=== PATIENT | female | born 1965 | race Caucasian/White ===

== ENCOUNTER 2017-06-24 15:59 | Emergency (ER) | payer MEDICAID, SELFPAY ==
[2017-06-24 16:00] VITALS: BP 156/97; PULSE 124; RESP 17; TEMP 36.4; O2SAT 96
--- NOTE | 2017-06-24 16:44 | CT_ITS ---
STUDY: CT ABDOMEN AND PELVIS WITH CONTRAST REASON FOR EXAM: Female, 51 years old. Left-sided abdominal pain for one week. Patient has had a cholecystectomy and hysterectomy. RADIATION DOSAGE (If Supplied By Facility): CTDIvol = ( 20.89 ) mGy, DLP = ( 1086.62 ) mGycm TECHNIQUE: Transaxial images were obtained from the dome of the diaphragm to the symphysis pubis without oral contrast. 100 ml of Isovue 300 contrast was administered. Sagittal and coronal images were reconstructed. Individualized dose optimization techniques were used for this CT. COMPARISON: CT of the abdomen dated February 10, 2017. FINDINGS: The visualized lung bases are unremarkable. The visualized portions of the heart are within normal limits. A tiny lucency within the right lobe of liver measures less than a centimeter in size. This is too small to characterize. The liver otherwise has a normal appearance. There is non-visualization of the gallbladder, which may be secondary to either contraction or a prior cholecystectomy. Normal spleen. Normal pancreas. There is a left adrenal nodule measuring approximately 2.9 cm in greatest dimension. The right adrenal gland has a normal appearance. There are multiple lucencies in both kidneys, too small to characterize. The largest measures up to 10 mm in size. There is no evidence for hydronephrosis, hydroureter or radiopaque ureteral calculus. Normal visualized stomach. Is no evidence for dilated bowel, ascites or pneumoperitoneum. Small bowel has a grossly normal appearance. The descending colon is not distended which gives the appearance of thickened elias. There are scattered colonic diverticula. The appendix is visualized and appears normal. There is patchy atherosclerotic calcification of the abdominal aorta, without a demonstrated aneurysm. Normal inferior vena cava. Normal retroperitoneum. Urinary bladder wall is mildly thickened measuring approximately 6.6 mm. Normal visualized uterus. Normal abdominal wall. There is deformity of the right inferior pubic ramus probably related to old fracture. CT/Abdomen/Pelvis WITH Contrast IMPRESSION: 1. No CT evidence of acute intra-abdominal disease. 2. Small renal cysts and possible hepatic cyst. Electronically Signed: Lindsey Caro MD at 20:28 EST , Service support ,
[2017-06-24 16:56] LABS: Bacteria 0 SEEN /hpf (None Seen); Mucous, Urine 0 SEEN /hpf (<or=2+); White Blood Cells 0 SEEN /hpf (0-5)
[2017-06-24 17:04] LABS: Basophil# 0.03 X10^3/uL; Basophil% 0.3 % (0-1); Eosinophil# 0.18 X10^3/uL; Eosinophils% 1.6 % (0-5); Hemoglobin 15.1 g/dl (12.0-15.0); Lymphocyte % 38.9 % (19-41); Mean Corp Hgb Conc 32.8 g/gl (32-36); Mean Corpuscular Hgb 31.9 pg (27.0-32.0); Mean Corpuscular Volume 97.3 fL (81-99); Mean Platelet Vol. 10.3 fl (6.2-12.0); Monocyte# 0.88 X10^3/uL; Monocyte% 7.6 % (0-10); Neutrophil # 5.96 X10^3/uL (2.7-7.7); Neutrophil % 51.3 % (47-70); Platelet Count 295 K/mm3 (150-450); RBC Distribution Width CV 12.8 % (11.6-14.6); Red Blood Count 4.73 M/mm3 (4.2-5.4); White Blood Count 11.6 K/mm3 (4.4-11.0)
[2017-06-24 17:09] LABS: Color, Urine Yellow (Yellow); Glucose, Dipstick Normal (Normal); Ketone-Dipstick Negative (Negative); Leukocyte Esterase-Dipstick Negative /ul (Negative); Nitrite-Dipstick Negative (Negative); Occult Blood-Urine 50 /ul (Negative); POSITIVE COUNT NO; POSITIVE DIFFERENTIAL NO; POSITIVE MORPHOLOGY NO; Protein-Dipstick Negative (Negative); Specific Gravity, Urine 1.015 (1.002-1.030); Urine Bilirubin Dipstick Negative (Negative); Urine Clarity Clear (Clear); Urine Urobilinogen Normal (Normal)
[2017-06-24 17:46] LABS: Red Blood Cells-Urine 0-5 SEEN /hpf (0-5); Squamous Epithelial Cells - UA 0-5 SEEN /hpf (5-10)
[2017-06-24 19:17] LABS: AST(SGOT) 31 U/L (15-37); Alanine Aminotransfer ALT/SGPT 58 U/L (13-56); Albumin, Serum 3.9 g/dL (3.2-5.0); Alkaline Phosphatase 69 U/L (45-117); Anion Gap 9 (5-15); BUN 9 mg/dL (7-18); BUN/Creat Ratio 10.3 RATIO (10-20); Calcium,Total 8.6 mg/dL (8.5-10.1); Chloride 105 mmol/L (98-107); Creatinine, Serum 0.87 mg/dL (0.55-1.02); EST Glomerular Filtration Rate 73 mL/min (>60); Est Glom Filt Rate - Afr Amer 88 mL/min (>60); Globulin 3.8 g/dL (2.2-4.2); Glucose 137 mg/dL (74-106); Potassium 3.3 mmol/L (3.5-5.1); Protein, Total 7.7 g/dL (6.4-8.2); Sodium Level 141 mmol/L (136-145)
[2017-06-24 20:22] VITALS: BP 122/87; PULSE 93; RESP 15; O2SAT 99
--- NOTE | 2017-06-24 20:50 | ED.DCSUM_ITS ---
- ER Visit Summary Date of Service: 06/24/17 Chief Complaint: Abdominal pain History of Present Illness: The patient is a 51 F who states that she went to her primary care physician 1 week ago. She is having a left lower quadrant abdominal pain. She had negative blood work and negative urine. He ordered a CT but it has been held up because of insurance reasons. She states that she comes the emergency department because she would like to find out what is going on. Her symptoms have not really changed other than maybe being slightly worse. She states that she has had a few small fibroids on her uterus before she was recently on hormonal supplementation for menopause. She denies any abnormal bleeding. Abdominal surgeries include a cholecystectomy and oophorectomy due to tubal . Physical Examination: Afebrile vital signs are stable Gen: Well-nourished well-developed Head: Normocephalic atraumatic Eyes: Perrl EOMI ENT: TMs clear no rhinorrhea moist mucous membranes Neck: Supple no lymphadenopathy no JVD nontender CVS: Regular rate rhythm no murmurs normal S1-S2 Respiratory: No distress clear to auscultation bilaterally chest nontender Abdomen: Soft mild tenderness to palpation in the left lower quadrant without guarding or rebound nondistended normal bowel sounds no masses Back: Nontender Extremity: Nontender no edema Skin: Normal color no rash Neuro: alert orientated ?3 CN II-XII intact normal strength sensation reflexes gait cerebellar Psych: Normal affect normal mood Test Results: White count 11.6. Glucose 137. Liver and urine normal. CT of the pelvis does not demonstrate an obvious cause for the patient's pain. Emergency Department Course and Treatment: She will be referred to her primary care physician for continued evaluation of this pain. Return if worsening. Impression:. Acute abdominal pain This note was generated with [employer] dictation software. It may contain incorrect words, spelling, and punctuation that were not noted in review of the chart prior to signing ED Disposition - Plan for ED Patient: Disposition: Home or Assisted Living Chief Complaint: Abd Pain Instructions: ED Abdominal Pain Unkn Cause Referrals: Freddy Dee MD [Primary Care Provider] - 3-5 Days
[2017-06-24 21:06] VITALS: BP 123/78; PULSE 71; RESP 14; O2SAT 97
--- NOTE | 2017-06-24 21:07 | ED.RN ---
PT GIVEN DISCHARGE INSTRUCTIONS AND VERBALIZES UNDERSTANDING. IV D/C AND COVERED WITH 2X2 GAUZE DRESSING. MINIMAL BLEEDING NOTED. PT AMBULATORY HOME BY SELF.
== END 2017-06-24 21:09 | disposition home or self-care (01) ==
PROVIDERS: Emergency Provider Emergency Medicine; Family Provider Family Medicine; PCP Family Medicine
DX: R10.32 Left lower quadrant pain (principal); R61 Generalized hyperhidrosis; F41.9 Anxiety disorder, unspecified; Z87.59 Personal history of other complications of pregnancy, childbirth and the puerperium; Z90.49 Acquired absence of other specified parts of digestive tract; Z90.721 Acquired absence of ovaries, unilateral; Z79.899 Other long term (current) drug therapy; Z72.0 Tobacco use
CPT/HCPCS: 74177; 80053; 81001; 85025; 99283; Q9967; A4216

== ENCOUNTER → 2017-08-19 11:49 | Outpatient (CLI) | payer MEDICAID, SELFPAY ==
[2017-08-19 13:12] LABS: Estradiol 12.7 pg/mL; Follicle Stimulating Hormone 44.6 mIU/mL
[2017-08-20 11:29] LABS: DHEA Sulfate 32.1 ug/dL (41.2-243.7)
[2017-08-26 17:39] LABS: Free T3 3.1 pg/mL (2.18-3.98); T4 Free Direct 1.08 ng/dL (0.76-1.46); Thyroid Stim Hormone (TSH) 2.57 uIU/mL (0.358-3.74)
== END ==
PROVIDERS: Visit Provider Obstetrics & Gynecology
DX: N95.1 Menopausal and female climacteric states (principal)
CPT/HCPCS: 36415; 82533; 82627; 82670; 83001; 84144; 84403; 84439; 84443; 84481; 82626

== ENCOUNTER → 2017-08-27 12:11 | Outpatient (CLI) | payer MEDICAID, SELFPAY ==
[2017-08-27 13:02] LABS: Hematocrit 45.9 % (37-47); Hemoglobin 15.7 g/dl (12.0-15.0); Mean Corp Hgb Conc 34.2 g/gl (32-36); Mean Corpuscular Hgb 33.3 pg (27.0-32.0); Mean Corpuscular Volume 97.2 fL (81-99); Mean Platelet Vol. 10.6 fl (6.2-12.0); Platelet Count 278 K/mm3 (150-450); RBC Distribution Width CV 12.7 % (11.6-14.6); RBC Distribution Width SD 44.5 fl (35.1-43.9); Red Blood Count 4.72 M/mm3 (4.2-5.4)
[2017-08-27 13:03] LABS: Scan Indicated on CBC? Y/N NO
[2017-08-27 13:18] LABS: Hemoglobin A1c 6.5 % (4.2-6.3)
== END ==
PROVIDERS: Family Provider Family Medicine; PCP Family Medicine; Visit Provider Obstetrics & Gynecology
DX: N95.1 Menopausal and female climacteric states (principal)
CPT/HCPCS: 83036; 85027

== ENCOUNTER 2017-09-19 11:13 | Emergency (ER) | payer MEDICAID, SELFPAY ==
[2017-09-19 11:13] VITALS: BP 155/101; PULSE 122; RESP 20; TEMP 36.4; O2SAT 98; BMI 38.3
--- NOTE | 2017-09-19 12:08 | CT_ITS ---
STUDY: CT MAXILLOFACIAL SINUSES REASON FOR EXAM: Female, 51 years old. Headache, facial pain, pressure behind face x 6 months, worse x 1 week. RADIATION DOSAGE (If Supplied By Facility): CTDIvol = ( 29.38 ) mGy, DLP = ( 510.73 ) mGycm TECHNIQUE: The patient was scanned in a multi detector CT scanner. High resolution axial imaging was performed without the administration of intravenous contrast material. Sagittal and coronal images were reconstructed. Individualized dose optimization techniques were used for this CT. COMPARISON: None. FINDINGS: FRONTAL SINUSES: Normal aeration, without mucosal inflammatory disease. ETHMOIDAL SINUSES: Normal aeration, without mucosal inflammatory disease. MAXILLARY SINUSES: There is minimal mucosal thickening of the left inferior maxillary sinus. Normal right maxillary sinus. SPHENOIDAL SINUSES: Normal aeration, without mucosal inflammatory disease. There is patency of the bilateral maxillary infundibuli with normal uncinate processes, ethmoid bullae, and hiatus semilunaris. 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 Normal bilateral inferior turbinates. There is a right sided nasal septal deviation with a right sided nasal septal spur. There is patency of the bilateral nasal airways. The visualized osseous structures are normal. The visualized bilateral orbital contents are normal. CT/Sinus/Facial Bone IMPRESSION: There is minimal mucosal thickening of the left maxillary sinus. 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 There is a right sided nasal septal deviation with a right sided nasal septal spur. Electronically Signed: Viji Morgan MD at 12:50 EDT , Service support ,
--- NOTE | 2017-09-19 12:08 | CT_ITS ---
STUDY: CT BRAIN WITHOUT CONTRAST REASON FOR EXAM: Female, 51 years old. Headache, facial pain, pressure behind face x 6 months, worse x 1 week. RADIATION DOSAGE (If Supplied By Facility): CTDIvol = ( 44.99 ) mGy, DLP = ( 745.49 ) mGycm TECHNIQUE: Transaxial CT imaging of the brain was performed without administration of intravenous contrast material. Individualized dose optimization techniques were used for this CT. COMPARISON: None. FINDINGS: Normal soft tissue structures. Normal calvarium. Normal size ventricles and extra-axial spaces for the patient's age. Normal white matter tracts of the cerebral hemispheres. Normal basal ganglia and thalami. Normal brainstem. Normal cerebellum. There is no intracranial hemorrhage. There are no findings of an acute ischemic infarction. Normal visualized paranasal sinuses. CT/Brain/Head without Contrast IMPRESSION: Normal unenhanced CT scan of the brain. Electronically Signed: Viji Morgan MD at 12:52 EDT , Service support ,
--- NOTE | 2017-09-19 12:10 | ED.VIS.GEN ---
History of Present Illness Chief Complaint: General Illness Informant: Patient Onset: - - 1 yr or more Context: Gradual Onset Timing: Continuous Narrative: Patient presenting with symptoms that have been present for over a year but worse in the past month. No different today. She states that she did not know what else to do but come to the ER for right facial pain and pressure that also feels like it is behind her nose and in the roof of her mouth, occasionally radiates to her right ear, and vertigo. She gets intermittent aching in her ears and ringing. She denies being congested or having any rhinorrhea or cough. No fevers. No injuries. She has been seen in the ER several times for this as well as ENT and endocrinology. She has had lots of blood work including hormone levels, but has had no CT or MRI although they have attempted to, but either insurance did not cover it or paperwork was filed incorrectly. She also states that she feels like there is a liquid pouring down the right frontal head on the inside, and when she leans forward, it drips down the front, mid forehead. Her vertigo is significantly worse when she bends over and then stands back up. She denies any focal peripheral neurologic symptoms except for BUE muscle weakness that has been there chronically that she associates w/ pain in her upper arms from a cervical pinched nerve. - Past Medical History (1) Paroxysmal SVT (supraventricular tachycardia) Status: Chronic (2) Hypertension Status: Chronic (3) Tobacco abuse Status: Chronic Past Medical History - Allergies and Home Meds Allergies/Adverse Reactions: Allergies codeine Allergy (Verified 09/19/17 11:16) Rash hydrocodone bitartrate [From Vicodin] Allergy (Verified 09/19/17 11:16) Rash methimazole [From Tapazole] Allergy (Verified 09/19/17 11:16) Shortness of breath famotidine [From Pepcid] Adverse Reaction (Unknown, Verified 09/19/17 11:16) Unknown estradiol [From CombiPatch] Adverse Reaction (Verified 09/19/17 11:16) myalgias, lip/mouth burn, SOB, nausea, dizziness methylprednisolone sodium succinate [From Solu-Medrol] Adverse Reaction (Verified 09/19/17 11:16) Other norethindrone [From CombiPatch] Adverse Reaction (Verified 09/19/17 11:16) myalgias, lip/mouth burn, SOB, nausea, dizziness oxycodone HCl [From Percocet] Adverse Reaction (Verified 09/19/17 11:16) Nausea/Vom/Diarrhea Home Medications: Home Medications Medication Instructions Recorded Levothyroxine [Synthroid] 125 mcg PO SUMOWEFRSA 12/05/15 Levothyroxine [Synthroid] 137 mcg PO TUTH 02/09/17 Primary Care Physician: Freddy Dee MD [Primary Care Provider] - Surgical History: cholecystectomy, - - Ectopic , tubal ligation Smoking Status: Current every day smoker Drugs: None Review of Systems All systems negative except as indicated Eyes: Reports: Visual changes - right - line through vision intermittently. Denies: Diplopia ENT: Reports: Right ear pain - intermittently, - - tinnitus bilat intermittently Musculoskeletal: Reports: Neck pain - chronic from pinched nerve that she associates with chronic bilat upper ext muscle weakness. Denies: Back pain Neurological: Reports: Headache, Weakness - upper ext's chronic not new/worse, - - vertigo / spinning Psych: Reports: Anxiety Physical Exam Vital Signs/Narrative: Vital Signs Temp Pulse Resp BP Pulse Ox 09/19/17 11:13 97.6 F L 122 H 20 H 155/101 H 98 Inital Vital Signs reviewed: Yes - not as tachycardic on my exam (low 100s estimated) General: Well nourished, Well developed Head: Normocephalic, Atraumatic Eyes: Perrl, EOMI ENT: Moist mucous membranes, No rhinorrhea, TM's clear, Nasal congestion, - - no facial tenderness. grossly nml appearing. no nasal turbinate edema or nasal d/c. no dental disease/tenderness.. Negative for: Sinus tenderness Neck: Supple, Nontender, No lymphadenopathy, No JVD Cardiovascular: Regular rate, Regular rhythm, No murmurs, Tachycardia Respiratory: No distress, CTA bilaterally, Chest nontender Abdomen: Soft, Nontender, Nondistended, Normal bowel sounds Back: Nontender, Normal Inspection Extremities: Nontender, No edema Skin: Normal color, No rash Neurological: Alert, Oriented x3, Cranial nerves II-XII grossly intact, Normal Strength, Normal Sensation Psychological: - - mildly anxious Diagnostic/Tx/Re-eval Impressions Brain CT 05/27/18 12:08 IMPRESSION: Normal unenhanced CT scan of the brain. Electronically Signed: Viji Morgan MD at 12:52 EDT , Service support , Facial/Sinus 09/19/17 12:08 IMPRESSION: There is minimal mucosal thickening of the left maxillary sinus. 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 There is a right sided nasal septal deviation with a right sided nasal septal spur. Electronically Signed: Viji Morgan MD at 12:50 EDT , Service support , 09/19/17 12:08 Brain/Head without Contrast [CT] Stat CT Sinus [Sinus/Facial Bone] [CT] Stat - Medical Decision Making She was offered several medications for her symptoms but declined them all, just wanted the CT initially. This was performed, brain and sinuses given her symptoms, the brain is unremarkable and the sinus CT shows a yadi bullosa as well as associated nasal septal deviation with a nasal spur all on the right side. Unknown if these are causing her symptoms or not, but I think routine ENT follow-up would be reasonable to see if surgery would be indicated for this patient or not. No antibiotics indicated at this time. Unknown if these problems could be associated with the vertigo, but my suspicion is that is a different issue. I offered her meclizine and/or something for pain here again, but she declines and states that she can get it [id number]. I will get her imaging on a disc so that she can follow-up with ENT of her choice. ED Disposition - Plan for ED Patient: Disposition: Home or Assisted Living Chief Complaint: General Illness Diagnosis: Right sided facial pain, Yadi bullosa, Peripheral vertigo Instructions: ED Vertigo Unspecified Referrals: José Antonio Doss MD [STAFF PHYSICIAN] - (call for appt)
--- NOTE | 2017-09-19 12:17 | ED.DCSUM_ITS ---
History of Present Illness Chief Complaint: General Illness Informant: Patient Onset: - - 1 yr or more Context: Gradual Onset Timing: Continuous Narrative: Patient presenting with symptoms that have been present for over a year but worse in the past month. No different today. She states that she did not know what else to do but come to the ER for right facial pain and pressure that also feels like it is behind her nose and in the roof of her mouth, occasionally radiates to her right ear, and vertigo. She gets intermittent aching in her ears and ringing. She denies being congested or having any rhinorrhea or cough. No fevers. No injuries. She has been seen in the ER several times for this as well as ENT and endocrinology. She has had lots of blood work including hormone levels, but has had no CT or MRI although they have attempted to, but either insurance did not cover it or paperwork was filed incorrectly. She also states that she feels like there is a liquid pouring down the right frontal head on the inside, and when she leans forward, it drips down the front , mid forehead. Her vertigo is significantly worse when she bends over and then stands back up. She denies any focal peripheral neurologic symptoms except for BUE muscle weakness that has been there chronically that she associates w/ pain in her upper arms from a cervical pinched nerve. - Past Medical History (1) Paroxysmal SVT (supraventricular tachycardia) Status: Chronic (2) Hypertension Status: Chronic (3) Tobacco abuse Status: Chronic Past Medical History - Allergies and Home Meds Allergies/Adverse Reactions: Allergies codeine Allergy (Verified 09/19/17 11:16) Rash hydrocodone bitartrate [From Vicodin] Allergy (Verified 09/19/17 11:16) Rash methimazole [From Tapazole] Allergy (Verified 09/19/17 11:16) Shortness of breath famotidine [From Pepcid] Adverse Reaction (Unknown, Verified 09/19/17 11:16) Unknown estradiol [From CombiPatch] Adverse Reaction (Verified 09/19/17 11:16) myalgias, lip/mouth burn, SOB, nausea, dizziness methylprednisolone sodium succinate [From Solu-Medrol] Adverse Reaction ( Verified 09/19/17 11:16) Other norethindrone [From CombiPatch] Adverse Reaction (Verified 09/19/17 11:16) myalgias, lip/mouth burn, SOB, nausea, dizziness oxycodone HCl [From Percocet] Adverse Reaction (Verified 09/19/17 11:16) Nausea/Vom/Diarrhea Home Medications: Home Medications Medication Instructions Recorded Levothyroxine [Synthroid] 125 mcg PO SUMOWEFRSA 12/05/15 Levothyroxine [Synthroid] 137 mcg PO TUTH 02/09/17 Primary Care Physician: Freddy Dee MD [Primary Care Provider] - Surgical History: cholecystectomy, - - Ectopic , tubal ligation Smoking Status: Current every day smoker Drugs: None Review of Systems All systems negative except as indicated Eyes: Reports: Visual changes - right - line through vision intermittently. Denies: Diplopia ENT: Reports: Right ear pain - intermittently, - - tinnitus bilat intermittently Musculoskeletal: Reports: Neck pain - chronic from pinched nerve that she associates with chronic bilat upper ext muscle weakness. Denies: Back pain Neurological: Reports: Headache, Weakness - upper ext's chronic not new/worse, - - vertigo / spinning Psych: Reports: Anxiety Physical Exam Vital Signs/Narrative: Vital Signs Temp Pulse Resp BP Pulse Ox 09/19/17 11:13 97.6 F L 122 H 20 H 155/101 H 98 Inital Vital Signs reviewed: Yes - not as tachycardic on my exam (low 100s estimated) General: Well nourished, Well developed Head: Normocephalic, Atraumatic Eyes: Perrl, EOMI ENT: Moist mucous membranes, No rhinorrhea, TM's clear, Nasal congestion, - - no facial tenderness. grossly nml appearing. no nasal turbinate edema or nasal d /c. no dental disease/tenderness.. Negative for: Sinus tenderness Neck: Supple, Nontender, No lymphadenopathy, No JVD Cardiovascular: Regular rate, Regular rhythm, No murmurs, Tachycardia Respiratory: No distress, CTA bilaterally, Chest nontender Abdomen: Soft, Nontender, Nondistended, Normal bowel sounds Back: Nontender, Normal Inspection Extremities: Nontender, No edema Skin: Normal color, No rash Neurological: Alert, Oriented x3, Cranial nerves II-XII grossly intact, Normal Strength, Normal Sensation Psychological: - - mildly anxious Diagnostic/Tx/Re-eval Impressions Brain CT 05/27/18 12:08 IMPRESSION: Normal unenhanced CT scan of the brain. Electronically Signed: Viji Morgan MD at 12:52 EDT , Service support , Facial/Sinus 09/19/17 12:08 IMPRESSION: There is minimal mucosal thickening of the left maxillary sinus. 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 There is a right sided nasal septal deviation with a right sided nasal septal spur. Electronically Signed: Viji Morgan MD at 12:50 EDT , Service support , 09/19/17 12:08 Brain/Head without Contrast [CT] Stat CT Sinus [Sinus/Facial Bone] [CT] Stat - Medical Decision Making She was offered several medications for her symptoms but declined them all, just wanted the CT initially. This was performed, brain and sinuses given her symptoms, the brain is unremarkable and the sinus CT shows a yadi bullosa as well as associated nasal septal deviation with a nasal spur all on the right side. Unknown if these are causing her symptoms or not, but I think routine ENT follow-up would be reasonable to see if surgery would be indicated for this patient or not. No antibiotics indicated at this time. Unknown if these problems could be associated with the vertigo, but my suspicion is that is a different issue. I offered her meclizine and/or something for pain here again, but she declines and states that she can get it [id number]. I will get her imaging on a disc so that she can follow-up with ENT of her choice. ED Disposition - Plan for ED Patient: Disposition: Home or Assisted Living Chief Complaint: General Illness Diagnosis: Right sided facial pain, Yadi bullosa, Peripheral vertigo Instructions: ED Vertigo Unspecified Referrals: José Antonio Doss MD [STAFF PHYSICIAN] - (call for appt)
[2017-09-19 13:18] VITALS: PULSE 80; RESP 22; O2SAT 97
[2017-09-19 13:23] VITALS: BP 131/83
[2017-09-19 14:43] VITALS: BP 192/92
== END 2017-09-19 14:43 | disposition home or self-care (01) ==
PROVIDERS: Emergency Provider Emergency Medicine; Family Provider Family Medicine; PCP Family Medicine
DX: R51 Headache (principal); J34.89 Other specified disorders of nose and nasal sinuses; H81.393 Other peripheral vertigo, bilateral; H93.13 Tinnitus, bilateral; M54.2 Cervicalgia; R29.898 Other symptoms and signs involving the musculoskeletal system; J34.2 Deviated nasal septum; Z86.79 Personal history of other diseases of the circulatory system; Z90.49 Acquired absence of other specified parts of digestive tract; Z98.51 Tubal ligation status; Z79.899 Other long term (current) drug therapy; F17.200 Nicotine dependence, unspecified, uncomplicated
CPT/HCPCS: 70450; 70486; 99282

== ENCOUNTER → 2017-10-18 07:22 | Outpatient (CLI) | payer MEDICAID, SELFPAY ==
--- NOTE | 2017-10-23 10:30 | EEG ---
- Electroencephalogram Date of Service: 10/18/17 History EEG is being done in this 51 yr F to rule out seizures EEG Description: This is an 18 channel EEG with 10-20 lead placement system. Bipolar montages, Referential and Circumferential montages were reviewed. Photic stimulation and Hyperventilation were performed. The posterior dominant background rhythm is 10 HZ synchronous, symmetric, reacting to eye opening and closing. Photo stimulation elicited normal driving response but no abnormal photoparoxysmal response, Hyperventilation did not elicit any abnormal photoparoxysmal response. Sleep was identified. Persistent EKG artefact seen during the record in the referential montages. There was no epileptiform discharges or electrographic seizures noted during this recording. EEG Interpretation This is a normal awake and asleep EEG. There is no epileptiform discharges or electrographic seizures noted during the record.
== END ==
PROVIDERS: Family Provider Family Medicine; PCP Family Medicine; Visit Provider Psychiatry & Neurology Neurology
DX: R42 Dizziness and giddiness (principal); R41.9 Unspecified symptoms and signs involving cognitive functions and awareness
CPT/HCPCS: 95819

== ENCOUNTER 2018-01-29 13:06 | Emergency (ER) | payer MEDICAID, SELFPAY ==
[2018-01-29 13:07] VITALS: BP 148/105; PULSE 121; RESP 17; TEMP 36.7; O2SAT 96; BMI 36.1
--- NOTE | 2018-01-29 13:23 | EKG12_ITS ---
Test Reason : DYSRHYTHMIA Blood Pressure : / mmHG Vent. Rate : 102 BPM Atrial Rate : 102 BPM P-R Int : 134 ms QRS Dur : 084 ms QT Int : 362 ms P-R-T Axes : 043 060 031 degrees QTc Int : 471 ms Sinus tachycardia Nonspecific ST abnormality Abnormal ECG Confirmed by ARYA HARRIS, JUAN ([id number]), editor book BERNA DEL TORO ([id number]) on 01/31/2018 3:04:57 PM Referred By: HERNESTO Confirmed By:JUAN KOENIG MD
--- NOTE | 2018-01-29 13:23 | RAD_ITS ---
STUDY: X-RAY CHEST REASON FOR EXAM: Female, 52 years old. Dizziness TECHNIQUE: Single frontal view COMPARISON: February 10, 2017 FINDINGS: The lungs are clear and expanded. There is no demonstrated pleural abnormality. Normal size heart. Normal mediastinum and ashley. Normal visualized pulmonary arteries. Normal visualized aortic arch and descending thoracic aorta. Normal visualized thoracic spine. Normal visualized ribs, clavicles, and shoulders. There is no demonstrated abnormality of the visualized soft tissue structures of the upper abdomen. RAD/Chest 1 View (Portable) IMPRESSION: Normal x-ray examination of the chest. Electronically Signed: Milton Estrada DO at 14:08 EDT Tel [phone], Service support ,
--- NOTE | 2018-01-29 13:35 | CT_ITS ---
STUDY: CT ABDOMEN AND PELVIS WITHOUT CONTRAST REASON FOR EXAM: Female, 52 years old. Abdominal pain RADIATION DOSAGE (If Supplied By Facility): CTDIvol = ( 14.97 ) mGy, DLP = ( 714.32 ) mGycm TECHNIQUE: Transaxial images were obtained from the dome of the diaphragm to the symphysis pubis without oral contrast, and without intravenous contrast. Sagittal and coronal images were reconstructed. Individualized dose optimization techniques were used for this CT. COMPARISON: June 24, 2017 FINDINGS: The visualized lung bases are unremarkable. The visualized portions of the heart are within normal limits. Normal liver. Nonvisualization of the gallbladder. No significant dilatation of the extrahepatic biliary system. Normal spleen. Normal pancreas. Normal bilateral adrenal glands. Normal right kidney. Normal left kidney. Normal visualized stomach. Normal small intestine. Normal colon. The appendix is visualized and appears normal. Calcified abdominal aorta. Normal inferior vena cava. Normal retroperitoneum. Normal urinary bladder. Normal uterus. Small fatty umbilical hernias. Normal osseous structures. CT/Abdomen/Pelvis without Cont IMPRESSION: Small fatty umbilical hernias. Electronically Signed: Milton Estrada DO at 14:53 EDT Tel [phone], Service support ,
--- NOTE | 2018-01-29 13:36 | ED.VISSUMM ---
- ER Visit Summary Date of Service: 01/29/18 Chief Complaint: [] Rapid heart rate numbness sensation all over sense of dizziness History of Present Illness: The patient is a 52 F [] patient has had these symptoms for over 3 years she believes they may be related to removal of 1 of her ovaries. She basically reports that she has spells where she feels tingling all over a sense of dizziness which is really lightheadedness and feels that her heart is racing. She has had an extensive prior outpatient evaluation including evaluation by neurology cardiology endocrinology rheumatology. 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 She has had no fever no cough no chest pain no abdominal pain other than to report intermittent lower abdominal cramps that she has had before her bowel bladder habits have been normal she is eating drink without difficulty no fever no cough no new meds no exposures she is here with her family, she additionally she is been told that some of the symptoms may be related to anxiety by her outpatient providers Also showed me her blood pressure readings at home one time the blood pressure was 130/80 with a heart rate of 103 and then shortly thereafter may be when she stood up it was 110/80 with a heart rate of 110 Physical Examination: [] General, no distress resting comfortably her vital signs are generally unremarkable her heart rate is 110 sinus rhythm she is in no distress speaking comfortably normal pace she is quite anxious over why she continues to have tachycardic spells and feels numb all over HEENT is generally unremarkable, cranial nerves are all normal her speech is easy The neck is supple no adenopathy Cardiovascular, regular rate and rhythm at 110 Lungs, clear bilateral Abdomen, soft nontender Extremities, no clubbing cyanosis or edema Neurologic, awake alert answering questions appropriately moving all 4 extremities she has full range of motion of all 4 extremities she has a normal neurologic exam to sensation movement cranial nerve mental functioning, no psychomotor agitation Test Results: [] Emergency Department Course and Treatment: [] Extensive prior evaluation as above she does have a heart rate here of 110 she seems quite anxious her EKG shows a sinus rhythm of 102 no acute injury pattern at this time screening labs will be obtained CT abdomen The patient's screening labs and abdominal CT and EKG are all unremarkable, I explained all the above to her of explained that given her prior extensive evaluation in the ED evaluation the exact cause of her symptoms remain unclear she will follow with her family doctors and other outpatient providers for further management options and return for change in symptoms Treatment Plan: [] Disposition: [] Home stable Impression: [] Palpitations with history of same, whole body numbness etiology unclear This note was generated with [employer] dictation software. It may contain incorrect words, spelling, and punctuation that were not noted in review of the chart prior to signing ED Disposition - Plan for ED Patient: Chief Complaint: Dizziness Referrals: Freddy Dee MD [Primary Care Provider] -
[2018-01-29 13:57] LABS: Absolute Lymphocyte Count 2.69 X10^3/ul (0.83-4.51); Absolute Neutrophil Count 6.6 X10^3/uL (2.0-7.7); Basophil# 0.04 X10^3/uL; Basophil% 0.4 % (0-1); Eosinophil# 0.09 X10^3/uL; Eosinophils% 0.9 % (0-5); Hematocrit 47.1 % (37-47); Lymphocyte # 2.69 X10^3/ul (4.0); Lymphocyte % 26.5 % (19-41); Mean Corpuscular Hgb 32.5 pg (27.0-32.0); Mean Corpuscular Volume 95.5 fL (81-99); Mean Platelet Vol. 10.5 fl (6.2-12.0); Monocyte# 0.68 X10^3/uL; Monocyte% 6.7 % (0-10); Neutrophil # 6.61 X10^3/uL (2.7-7.7); Platelet Count 276 K/mm3 (150-450); RBC Distribution Width CV 12.5 % (11.6-14.6); RBC Distribution Width SD 42.9 fl (35.1-43.9); Red Blood Count 4.93 M/mm3 (4.2-5.4); White Blood Count 10.2 K/mm3 (4.4-11.0)
[2018-01-29 13:58] LABS: POSITIVE COUNT NO; POSITIVE DIFFERENTIAL NO; POSITIVE MORPHOLOGY NO
[2018-01-29 14:06] LABS: Bacteria 0 SEEN /hpf (None Seen); Mucous, Urine 0 SEEN /hpf (<or=2+); Red Blood Cells-Urine 0 SEEN /hpf (0-5); White Blood Cells 0 SEEN /hpf (0-5)
[2018-01-29 14:07] LABS: Color, Urine Yellow (Yellow); Glucose, Dipstick Normal (Normal); Ketone-Dipstick Negative (Negative); Leukocyte Esterase-Dipstick Negative /ul (Negative); Nitrite-Dipstick Negative (Negative); Occult Blood-Urine 10 /ul (Negative); Protein-Dipstick Negative (Negative); Urine Bilirubin Dipstick Negative (Negative); Urine Clarity Clear (Clear); Urine Urobilinogen Normal (Normal); Urine pH 6.5 (5.0 - 8.0)
[2018-01-29 14:15] LABS: Squamous Epithelial Cells - UA 0-5 SEEN /hpf (5-10)
[2018-01-29 14:22] LABS: AST(SGOT) 18 U/L (15-37); Alanine Aminotransfer ALT/SGPT 36 U/L (13-56); Albumin, Serum 3.8 g/dL (3.2-5.0); Alkaline Phosphatase 83 U/L (45-117); Anion Gap 7 (5-15); BUN 8 mg/dL (7-18); BUN/Creat Ratio 8.8 RATIO (10-20); Bilirubin, Direct 0.14 mg/dL (0.00-0.30); Chloride 106 mmol/L (98-107); Creatinine, Serum 0.91 mg/dL (0.55-1.02); EST Glomerular Filtration Rate 69 mL/min (>60); Est Glom Filt Rate - Afr Amer 83 mL/min (>60); Estimated Creatinine Clearance 54.57 ml/min; Globulin 4.1 g/dL (2.2-4.2); Glucose 108 mg/dL (74-106); Lipase 141 U/L (73-393); Potassium 3.9 mmol/L (3.5-5.1); Protein, Total 7.9 g/dL (6.4-8.2); Sodium Level 138 mmol/L (136-145); T4 Free Direct 1.19 ng/dL (0.76-1.46); Thyroid Stim Hormone (TSH) 2.95 uIU/mL (0.358-3.74)
[2018-01-29 14:27] LABS: BNP,B-Type NATRIURETIC PEPTIDE 13.3 pg/mL (0-100)
[2018-01-29 14:43] VITALS: BP 103/68; PULSE 84; RESP 20; O2SAT 94
--- NOTE | 2018-01-29 15:03 | ED.DEP ---
ED Disposition - Plan for ED Patient: Chief Complaint: Dizziness Instructions: ED Dizziness [facility]O, ED Palpitations Referrals: Freddy Dee MD [Primary Care Provider] -
== END 2018-01-29 15:17 | disposition home or self-care (01) ==
LOC: ED 13:38
PROVIDERS: Emergency Provider Emergency Medicine; Family Provider Family Medicine; PCP Family Medicine
DX: R00.2 Palpitations (principal); R20.0 Anesthesia of skin; R10.30 Lower abdominal pain, unspecified; R42 Dizziness and giddiness
CPT/HCPCS: 71045; 74176; 80048; 80076; 81001; 83690; 83880; 84439; 84443; 84484; 85025; 93005; 99284; A4216

== ENCOUNTER → 2018-02-04 10:28 | Outpatient (CLI) | payer MEDICAID, SELFPAY | PROVIDERS: Family Provider Family Medicine; PCP Family Medicine; Referring Provider Psychiatry & Neurology Neurology; Visit Provider Psychiatry & Neurology Neurology | DX: R53.83 Other fatigue (principal) | CPT/HCPCS: 36415 ==

== ENCOUNTER 2018-02-08 17:37 | Emergency (ER) | payer MEDICAID, SELFPAY ==
[2018-02-08 17:38] VITALS: BP 181/102; PULSE 124; RESP 17; TEMP 36.8; O2SAT 96; BMI 36.0
--- NOTE | 2018-02-08 18:34 | EKG12_ITS ---
Test Reason : CP Blood Pressure : / mmHG Vent. Rate : 113 BPM Atrial Rate : 113 BPM P-R Int : 134 ms QRS Dur : 088 ms QT Int : 332 ms P-R-T Axes : 058 068 031 degrees QTc Int : 455 ms Sinus tachycardia Nonspecific ST abnormality Abnormal ECG Confirmed by ARYA HARRIS, JUAN ([id number]), visual effects editor BERNA DEL TORO ([id number]) on 02/10/2018 10:00:36 AM Referred By: Janice Carmona Confirmed By:JUAN KOENIG MD
--- NOTE | 2018-02-08 18:35 | ED.VISSUMM ---
- ER Visit Summary Date of Service: 02/08/18 Chief Complaint: Palpitations History of Present Illness: The patient is a 52 F palpitations intermittent since yesterday evening. Woke up with worsening symptoms. Saw PCP office sent to cardiology Dr. Canseco. She is heart rate in the 119. He was placed on betaxolol 10 mg tabs to take half a tab daily as needed. She has been having these symptoms on and off for 3 years after left oophrectomy. Seen Dr. Canseco in the past. Unclear the cause however is been sinus. She has had asthma-like symptoms with other beta-blockers in the past. She did not take any this medication yet. History of hypothyroid on Synthroid. Tobacco history. States symptoms with the onset with lower abdominal cramping since she had her oophorectomy. With her symptoms would have nausea and vomiting. Resolved after symptoms resolved. Currently mild nausea. Chronic dry cough. His PCP ordered a recent 24-hour urine which she turned in yesterday. Symptoms currently resolved on my evaluation. Physical Examination: General: Alert and oriented ?3, no acute distress HEENT: Normocephalic, atraumatic. Moist mucosa membranes Neck: supple, nontender. Cardiovascular: Regular rate and rhythm, no murmurs Respiratory: Normal breath sounds, symmetric, no distress Abdomen: Soft, nontender, nondistended Extremities: Nontender, no edema, pulses intact ?4 Neuro: no focal neurological deficits. Test Results: EKG sinus rate of 113, no ST or T wave changes. White count 15.9. Potassium 3.2. Magnesium 2.0. Troponin negative. Emergency Department Course and Treatment: Patient resolved symptoms on my evaluation. History of similar in the past. She did not take her medication prescribed today. Have a heart rate now in the 90s. I did check labs, potassium 3.2 orally replaced. Magnesium normal. Troponin obtained due to her consistent symptoms throughout any heart strain which was negative. Her white count was 15.9. She has no urine symptoms. Order for chest x-ray for her cough is dry. However she declined this stating likely stress-induced and has had elevated in the past. Discuss her symptoms that have been intermittent past 3 years. She will monitor she will follow-up with her croze machine operator. Signs and symptoms discussed return. Treatment Plan: [] Disposition: Discharge Impression: 1. Transient sinus tachycardia 2 palpitations 3 hypokalemia This note was generated with [employer] dictation software. It may contain incorrect words, spelling, and punctuation that were not noted in review of the chart prior to signing ED Disposition - Plan for ED Patient: Disposition: Home or Assisted Living Chief Complaint: Palpitations Diagnosis: Sinus tachycardia, Palpitations, Hypokalemia Instructions: ED Palpitations, ED Tachycardia Pat PSVT Referrals: Freddy Dee MD [Primary Care Provider] - Blair Canseco MD [STAFF PHYSICIAN] - 5-7 Days
[2018-02-08 18:47] LABS: Absolute Lymphocyte Count 4.08 X10^3/ul (0.83-4.51); Absolute Neutrophil Count 10.3 X10^3/uL (2.0-7.7); Basophil# 0.04 X10^3/uL; Basophil% 0.3 % (0-1); Eosinophil# 0.09 X10^3/uL; Eosinophils% 0.6 % (0-5); Hematocrit 46.3 % (37-47); Hemoglobin 15.8 g/dl (12.0-15.0); Lymphocyte # 4.08 X10^3/ul (4.0); Lymphocyte % 25.7 % (19-41); Mean Corp Hgb Conc 34.1 g/gl (32-36); Mean Corpuscular Hgb 32.8 pg (27.0-32.0); Mean Corpuscular Volume 96.1 fL (81-99); Mean Platelet Vol. 10.6 fl (6.2-12.0); Monocyte% 8.2 % (0-10); Neutrophil # 10.31 X10^3/uL (2.7-7.7); Neutrophil % 64.8 % (47-70); POSITIVE COUNT NO; POSITIVE DIFFERENTIAL NO; POSITIVE MORPHOLOGY NO; Platelet Count 279 K/mm3 (150-450); RBC Distribution Width CV 12.5 % (11.6-14.6); RBC Distribution Width SD 43.1 fl (35.1-43.9); Red Blood Count 4.82 M/mm3 (4.2-5.4); White Blood Count 15.9 K/mm3 (4.4-11.0)
[2018-02-08 18:58] LABS: Anion Gap 9 (5-15); BUN 6 mg/dL (7-18); BUN/Creat Ratio 6.2 RATIO (10-20); Calcium,Total 9.2 mg/dL (8.5-10.1); Chloride 104 mmol/L (98-107); Creatinine, Serum 0.97 mg/dL (0.55-1.02); EST Glomerular Filtration Rate 64 mL/min (>60); Est Glom Filt Rate - Afr Amer 78 mL/min (>60); Estimated Creatinine Clearance 51.19 ml/min; Glucose 128 mg/dL (74-106); Potassium 3.2 mmol/L (3.5-5.1); Sodium Level 139 mmol/L (136-145)
[2018-02-08] MEDS: Acetaminophen 500 MG Tablet 1000 MG PO (19:14)
--- NOTE | 2018-02-08 19:47 | ED.RN ---
PATIENT DOES NOT WANT THE XRAY AND WANTS TO GO HOME PER DR. GREENWOOD.
[2018-02-08 19:56] VITALS: RESP 18
== END 2018-02-08 19:56 | disposition home or self-care (01) ==
PROVIDERS: Emergency Provider Emergency Medicine; Family Provider Family Medicine; PCP Family Medicine
DX: R00.0 Tachycardia, unspecified (principal); R00.2 Palpitations; E87.6 Hypokalemia; E03.9 Hypothyroidism, unspecified; R35.0 Frequency of micturition; Z90.721 Acquired absence of ovaries, unilateral; Z79.899 Other long term (current) drug therapy; Z72.0 Tobacco use
CPT/HCPCS: 80048; 83735; 84484; 85025; 93005; 99284; J7040; J2405

== ENCOUNTER → 2018-02-15 08:11 | Outpatient (CLI) | payer MEDICAID, SELFPAY ==
--- NOTE | 2018-02-15 08:12 | ECHOD_ITS ---
Reason For Study: CHEST PAIN Procedure This was a 2D Doppler, Color Flow transthoracic echocardiogram. The study was technically difficult. Exam performed in department. Left Ventricle Normal LV size. Left ventricular systolic function is normal. The estimated ejection fraction is 65 %. No evidence for diastolic dysfunction. No regional wall motion abnormalities noted. Right Ventricle Normal RV size. Normal systolic function. Atria Normal left atrium. Normal right atrium. No doppler evidence for ASD. Mitral Valve There is no mitral annular calcification. Equivocal mitral valve prolapse. Trivial mitral valve insufficiency. Tricuspid Valve Normal tricuspid valve. Mild tricuspid valve insufficiency. Right ventricular systolic pressure estimated to be 28 mmHg. Aortic Valve Trisinus/trileaflet aortic valve. Normal aortic valve. Pulmonic Valve The pulmonic valve is not well visualized. Trivial pulmonic valve insufficiency. Great Vessels Normal sized aortic root. Pericardium/Pleural No pericardial effusion. MMode/2D Measurements & Calculations LVIDd: 4.2 cm IVSd: 0.92 cm Ao root diam: 3.2 cm LVIDs: 2.9 cm LVPWd: 0.88 cm LA dimension: 3.0 cm RVDd: 3.1 cm FS: 31.3 % LAV(MOD-bp): 44.5 ml LVAd ap4: 23.2 cm2 SV(MOD-sp4): 43.3 ml LAV(MOD-bp) Indexed: 24.1 ml/m2 EDV(MOD-sp4): 62.6 ml LAV(MOD-sp2): 39.3 ml EDV(sp4-el): 63.9 ml LAV(MOD-sp4): 39.7 ml LVAs ap4: 11.8 cm2 ESV(MOD-sp4): 19.4 ml ESV(sp4-el): 19.9 ml EF(MOD-sp4): 69.1 % EF(sp4-el): 68.8 % SV(sp4-el): 44.0 ml LA A4 area: 16.0 cm2 RA A4 area: 14.7 cm2 Time Measurements MV dec time: 0.25 sec Doppler Measurements & Calculations MV E max jameson: 90.2 cm/sec Lat Peak E' Jameson: 9.9 cm/sec Med Peak E' Jameson: 13.6 cm/sec MV A max jameson: 89.6 cm/sec E/E' lat: 9.1 E/E' med: 6.6 MV E/A: 1.0 Ao V2 max: 144.0 cm/sec LV V1 max: 133.6 cm/sec PA V2 max: 104.6 cm/sec Ao max P.3 mmHg LV V1 max P.1 mmHg TR max jameson: 247.3 cm/sec TR max P.5 mmHg Interpretation Summary The study was technically difficult. Left ventricular systolic function is normal. The estimated ejection fraction is 65 %. Equivocal mitral valve prolapse. Trivial mitral valve insufficiency. Mild tricuspid valve insufficiency. Trivial pulmonic valve insufficiency. Right ventricular systolic pressure estimated to be 28 mmHg. No evidence for diastolic dysfunction. Ordering Physician: Ayan Koehler/Blair Canseco Referring Physician: HUGO NAVA Performed By: Yamel Sykes RDCS
== END ==
PROVIDERS: Family Provider Family Medicine; PCP Family Medicine; Referring Provider Nurse Practitioner Family; Visit Provider Nurse Practitioner Family
DX: R07.9 Chest pain, unspecified (principal); R06.09 Other forms of dyspnea; I47.1 Supraventricular tachycardia; Z72.0 Tobacco use; I10 Essential (primary) hypertension; R00.0 Tachycardia, unspecified
CPT/HCPCS: 93306

== ENCOUNTER 2018-02-23 09:48 | Emergency (ER) | payer MEDICAID, SELFPAY ==
[2018-02-23 09:49] VITALS: BP 156/93; PULSE 104; RESP 13; TEMP 36.6; O2SAT 98; BMI 35.9
--- NOTE | 2018-02-23 09:55 | EKG12_ITS ---
Test Reason : CHEST PAIN Blood Pressure : / mmHG Vent. Rate : 104 BPM Atrial Rate : 104 BPM P-R Int : 138 ms QRS Dur : 088 ms QT Int : 372 ms P-R-T Axes : 050 067 026 degrees QTc Int : 489 ms Sinus tachycardia Nonspecific ST abnormality Abnormal ECG Confirmed by ARYA HARRIS, JUAN ([id number]), state editor BERNA DEL TORO ([id number]) on 03/02/2018 2:30:01 PM Referred By: PAT Confirmed By:JUAN KOENIG MD
[2018-02-23 10:30] LABS: Absolute Lymphocyte Count 4.29 X10^3/ul (0.83-4.51); Absolute Neutrophil Count 6.3 X10^3/uL (2.0-7.7); Basophil# 0.05 X10^3/uL; Basophil% 0.4 % (0-1); Eosinophil# 0.19 X10^3/uL; Eosinophils% 1.6 % (0-5); Hematocrit 46.9 % (37-47); Hemoglobin 16.1 g/dl (12.0-15.0); Lymphocyte # 4.29 X10^3/ul (4.0); Lymphocyte % 36.1 % (19-41); Mean Corp Hgb Conc 34.3 g/gl (32-36); Mean Corpuscular Hgb 32.9 pg (27.0-32.0); Mean Corpuscular Volume 95.9 fL (81-99); Mean Platelet Vol. 10.4 fl (6.2-12.0); Monocyte# 1.02 X10^3/uL; Monocyte% 8.6 % (0-10); Neutrophil # 6.29 X10^3/uL (2.7-7.7); Neutrophil % 52.9 % (47-70); POSITIVE COUNT NO; POSITIVE DIFFERENTIAL NO; POSITIVE MORPHOLOGY NO; Platelet Count 301 K/mm3 (150-450); RBC Distribution Width CV 12.8 % (11.6-14.6); RBC Distribution Width SD 44.3 fl (35.1-43.9); Red Blood Count 4.89 M/mm3 (4.2-5.4); White Blood Count 11.9 K/mm3 (4.4-11.0)
[2018-02-23 10:37] LABS: Erythrocyte Sedimentation Rate 23 mm/hr (0-30)
[2018-02-23 11:43] LABS: ALB/GLOB Ratio 0.9 RATIO (0.9-2.4); AST(SGOT) 18 U/L (15-37); Alanine Aminotransfer ALT/SGPT 35 U/L (13-56); Albumin, Serum 3.9 g/dL (3.2-5.0); Alkaline Phosphatase 82 U/L (45-117); Anion Gap 6 (5-15); BUN 15 mg/dL (7-18); BUN/Creat Ratio 16.3 RATIO (10-20); CRP < 2.90 mg/L (0.0-3.0); Calcium,Total 8.9 mg/dL (8.5-10.1); Chloride 105 mmol/L (98-107); Creatinine, Serum 0.92 mg/dL (0.55-1.02); EST Glomerular Filtration Rate 68 mL/min (>60); Est Glom Filt Rate - Afr Amer 82 mL/min (>60); Estimated Creatinine Clearance 53.98 ml/min; Globulin 4.3 g/dL (2.2-4.2); Glucose 118 mg/dL (74-106); Potassium 3.4 mmol/L (3.5-5.1); Protein, Total 8.2 g/dL (6.4-8.2); Sodium Level 136 mmol/L (136-145)
[2018-02-23 11:47] VITALS: BP 142/67; PULSE 71; RESP 15; O2SAT 98
--- NOTE | 2018-02-23 12:46 | ED.VISSUMM ---
- ER Visit Summary Date of Service: 02/23/18 Chief Complaint: Multiple symptoms that are intermittent for the past 5-6 years History of Present Illness: The patient is a 52 F who presents with complaint of dizziness, pounding and palpitations of her heart, dizziness, lower cramping abdominal pain, which she describes as contraction when she received Pitocin, bilateral blurred vision and not feeling right. She has been seen by her primary care physician, multiple cardiologists, chili powder mixer, preschool director, animal nutritionist and senior manager creative services with no known etiology for her symptoms. She states she has had CAT scans EGD and colonoscopy that reportedly are negative. The only abnormality is a slightly elevated white count and decrease in potassium. She has no other symptoms or complaints. Please read written note for complete detail Physical Examination: Vital signs noted and blood pressure is elevated 146/93. When patient stated she was experienced these symptoms her heart rate was a sinus mechanism with a rate of 87. When she complained of being flushed there was no discoloration of her skin nor was or any diaphoresis. Head is atraumatic normocephalic. Pupils are equal round reactive. Extraocular muscles are intact. TMs are pearly white with landmarks noted. Nares patent with no drainage. Posterior pharynx without erythema or exudate. Uvula is midline. There is no dysphonia or dysphasia. Trachea is midline. There is no stridor with auscultation of the neck. Heart is regular without murmur, gallop or rub. S1 and S2 are normal. Lungs are clear to auscultation with good movement of air bilaterally. Abdomen soft nontender bowel sounds present normal. Patient is alert and oriented ?3. Motor is 5 over 5. Sensory is intact. DTRs are symmetric with no clonus or Babinski sign. Cranial 2 through 12 are intact. Cerebellar testing is normal. During the history and physical there was minimal eye contact. Daughter interjected and stated her expectation is for me to determine the cause. Test Results: CBC reveals slight elevation white count 11.9 thousand with normal differential. Potassium is slightly diminished at 3.4. Hepatic is unremarkable. ESR was unremarkable. Emergency Department Course and Treatment: Patient and family were informed that her history and physical does not indicate any significant emergent abnormality. Will do screening labs and specifically CBC electrolytes because of history that these have been abnormal in the past. ESR was obtained because of reported elevated LEONIDAS on one occasion. Treatment Plan: Follow-up with her PCP and discuss options that may not be organic in etiology Disposition: Discharged to home Impression: Multiple somatic symptoms and complaints of unknown etiology This note was generated with [employer] dictation software. It may contain incorrect words, spelling, and punctuation that were not noted in review of the chart prior to signing ED Disposition - Plan for ED Patient: Disposition: Home or Assisted Living Chief Complaint: Palpitations Instructions: ED Palpitations, ED Dizziness [facility]O Referrals: Freddy Dee MD [Primary Care Provider] - 3-5 Days
--- NOTE | 2018-02-23 12:51 | ED.DCSUM_ITS ---
- ER Visit Summary Date of Service: 02/23/18 Chief Complaint: Multiple symptoms that are intermittent for the past 5-6 years History of Present Illness: The patient is a 52 F who presents with complaint of dizziness, pounding and palpitations of her heart, dizziness, lower cramping abdominal pain, which she describes as contraction when she received Pitocin, bilateral blurred vision and not feeling right. She has been seen by her primary care physician, multiple cardiologists, laboratory animal care veterinarian, pulmo nologist, deputy brand inspector and lock expert with no known etiology for her symptoms. She states she has had CAT scans EGD and colonoscopy that reportedly are negative. The only abnormality is a slightly elevated white count and decrease in potassium. She has no other symptoms or complaints. Please read written note for complete detail Physical Examination: Vital signs noted and blood pressure is elevated 146/93. When patient stated she was experienced these symptoms her heart rate was a sinus mechanism with a rate of 87. When she complained of being flushed there was no discoloration of her skin nor was or any diaphoresis. Head is atraumatic normocephalic. Pupils are equal round reactive. Extraocular muscles are intact. TMs are pearly white with landmarks noted. Nares patent with no drainage. Posterior pharynx without erythema or exudate. Uvula is midline. There is no dysphonia or dysphasia. Trachea is midline. There is no stridor with auscultation of the neck. Heart is regular without murmur, gallop or rub. S1 and S2 are normal. Lungs are clear to auscultation with good movement of air bilaterally. Abdomen soft nontender bowel sounds present normal. Patient is alert and oriented ?3. Motor is 5 over 5. Sensory is intact. DTRs are symmetric with no clonus or Babinski sign. Cranial 2 through 12 are intact. Cerebellar testing is normal. During the history and physical there was minimal eye contact. Daughter interjected and stated her expectation is for me to determine the cause. Test Results: CBC reveals slight elevation white count 11.9 thousand with normal differential. Potassium is slightly diminished at 3.4. Hepatic is unremarkable. ESR was unremarkable. Emergency Department Course and Treatment: Patient and family were informed that her history and physical does not indicate any significant emergent abnormality. Will do screening labs and specifically CBC electrolytes because of history that these have been abnormal in the past. ESR was obtained because of reported elevated LEONIDAS on one occasion. Treatment Plan: Follow-up with her PCP and discuss options that may not be organic in etiology Disposition: Discharged to home Impression: Multiple somatic symptoms and complaints of unknown etiology This note was generated with [employer] dictation software. It may contain incorrect words, spelling, and punctuation that were not noted in review of the chart prior to signing ED Disposition - Plan for ED Patient: Disposition: Home or Assisted Living Chief Complaint: Palpitations Instructions: ED Palpitations, ED Dizziness UKO Referrals: Freddy Dee MD [Primary Care Provider] - 3-5 Days
[2018-02-23 13:16] VITALS: PULSE 89; RESP 14; O2SAT 98
== END 2018-02-23 13:17 | disposition home or self-care (01) ==
PROVIDERS: Emergency Provider Emergency Medicine; Family Provider Family Medicine; PCP Family Medicine
DX: R42 Dizziness and giddiness (principal); R00.2 Palpitations; R10.30 Lower abdominal pain, unspecified; E66.9 Obesity, unspecified
CPT/HCPCS: 80053; 85025; 85652; 86140; 93005; 99283; A4216

== ENCOUNTER 2018-05-01 02:18 | Emergency (ER) | payer MEDICAID, SELFPAY ==
[2018-05-01 02:20] VITALS: BP 152/95; PULSE 103; RESP 18; TEMP 37.1; O2SAT 97; BMI 37.4
--- NOTE | 2018-05-01 03:05 | ED.VIS.GEN ---
History of Present Illness Chief Complaint: Fatigue Informant: Patient Onset: Days - 3 Context: Gradual Onset Timing: Continuous, Waxes and wanes Quality: cramping/muscle spasms Location: all over, mostly arms and legs, but also chest Current Severity: Moderate Maximum Severity: Moderate Worsened by: nothing in particular Relieved by: nothing. taken no medications. Associated Symptoms: intermittent facial flushing, feeling hot; constipated. heart beats hard. Narrative: No feeling of palpitations or racing heartbeat, she is just feeling the beats more prominently when she is feeling the facial flushing. She gets muscle spasms in her chest at the same time she gets them in her arms and legs, she denies having chest pain. No trouble breathing. Had a cold 2 weeks ago but nothing since. In the last week she denies any [id number] medications or changes in her other medications. Past Medical History - Allergies and Home Meds Allergies/Adverse Reactions: Allergies codeine Allergy (Verified 05/01/18 02:19) Rash hydrocodone bitartrate [From Vicodin] Allergy (Verified 05/01/18 02:19) Rash methimazole [From Tapazole] Allergy (Verified 05/01/18 02:19) Shortness of breath famotidine [From Pepcid] Adverse Reaction (Unknown, Verified 05/01/18 02:19) Unknown estradiol [From CombiPatch] Adverse Reaction (Verified 05/01/18 02:19) myalgias, lip/mouth burn, SOB, nausea, dizziness methylprednisolone sodium succinate [From Solu-Medrol] Adverse Reaction (Verified 05/01/18 02:19) Other norethindrone [From CombiPatch] Adverse Reaction (Verified 05/01/18 02:19) myalgias, lip/mouth burn, SOB, nausea, dizziness oxycodone HCl [From Percocet] Adverse Reaction (Verified 05/01/18 02:19) Nausea/Vom/Diarrhea Primary Care Physician: Freddy Dee MD [Primary Care Provider] - Surgical History: cholecystectomy, - - Ectopic , tubal ligation Smoking Status: Current every day smoker Review of Systems General: Reports: Malaise. Denies: Chills, Fever, Sweats Eyes: Denies: Visual changes - bilaterally, Diplopia ENT: Reports: - - facial flushing intermittently. Denies: Bilateral ear pain, Rhinorrhea, Sore throat Cardiovascular: Denies: Chest pain, Palpitations, Heart racing Respiratory: Denies: Dyspnea, Cough, Dyspnea on exertion, Orthopnea Gastrointestinal: Reports: Abdominal pain - Suprapubic, Constipation - x 3d. Denies: Nausea, Vomiting, Diarrhea, Melena, Hematochezia Genitourinary: Denies: Dysuria, Hematuria, Frequency Musculoskeletal: Reports: Myalgias, Extremity Pain - see hpi. Denies: Neck pain, Back pain, Swelling Skin: Denies: Rash, Abscess, Wounds Neurological: Denies: Headache, Weakness, Numbness Psych: Reports: Anxiety - I'm out of alprazolam. Denies: Depression, Suicidal thoughts, Suicidal ideations Endocrine: Reports: Heat intolerance. Denies: Cold intolerance Hematologic: Denies: Easy bruising, Easy bleeding Allergy: Denies: Swelling of the mouth, Swelling of the tongue Physical Exam Vital Signs/Narrative: Vital Signs Temp Pulse Resp BP Pulse Ox 05/01/18 02:20 98.7 F 103 H 18 152/95 H 97 Inital Vital Signs reviewed: Yes General: Well nourished, Well developed Head: Normocephalic, Atraumatic Eyes: Perrl, EOMI ENT: Moist mucous membranes, No rhinorrhea Neck: Supple, Nontender, No lymphadenopathy, No JVD Cardiovascular: Regular rate, Regular rhythm, No murmurs, Normal S1, Normal S2. Negative for: Tachycardia Respiratory: No distress, CTA bilaterally, Chest nontender Abdomen: Soft, Nondistended, Normal bowel sounds, Tender - Mild, suprapubic only. Negative for: Guarding, Rebound tenderness Back: Nontender, Normal Inspection Extremities: Nontender, No edema Skin: Normal color, No rash Neurological: Alert, Oriented x3, Cranial nerves II-XII grossly intact, Normal Strength, Normal Sensation, Normal Gait Psychological: Normal affect Diagnostic/Tx/Re-eval Laboratory Results 05/01/18 05/01/18 05/01/18 02:42 03:15 03:15 WBC 11.3 H RBC 4.50 Hgb 15.0 Hct 43.4 MCV 96.4 MCH 33.3 H MCHC 34.6 RDW 12.7 RDW Differential 44.0 H Plt Count 260 MPV 10.0 Immature Gran % (Auto) 0.400 Neut % (Auto) 52.1 Lymph % (Auto) 35.5 [place] % (Auto) 9.4 Eos % (Auto) 2.2 Baso % (Auto) 0.4 Absolute Neuts (auto) 5.9 Absolute Lymphs (auto) 4.02 Total Counted Not Reportable Sodium 145 Potassium 3.4 L Chloride 107 Carbon Dioxide 28.0 Anion Gap 10 BUN 11 Creatinine 0.86 Estim Creat Clear Calc 57.74 Est GFR (MDRD) Af Amer 89 Est GFR (MDRD) Non-Af 73 BUN/Creatinine Ratio 12.8 Glucose 132 H Calcium 9.0 Urine Color Straw Urine Clarity Clear Urine pH 6.5 Ur Specific [place] 1.005 Urine Protein Negative Urine Glucose (UA) Normal Urine Ketones Negative Urine Occult Blood 10 H Urine Nitrite Negative Urine Bilirubin Negative Urine Urobilinogen Normal Ur Leukocyte Esterase Negative Urine RBC 0-5 SEEN Urine WBC 0 SEEN Ur Squamous Epith Cells 0-5 SEEN Urine Bacteria 0 SEEN Urine Mucus 0 SEEN - Medical Decision Making Lab testing shows mild hypokalemia, which may be causing her symptoms. We will give her a dose of potassium chloride here as well as prescription for several days more, her urinalysis shows no signs of infection. If her symptoms persist she is advised to follow-up with her doctor. We discussed the possibility of postmenopausal hot flashes being involved here. ED Disposition - Plan for ED Patient: Disposition: Home or Assisted Living Chief Complaint: Fatigue Diagnosis: Facial flushing, Muscle spasms of both lower extremities, Hypokalemia Instructions: ED Potassium Deficiency Prescriptions: Potassium Chloride [K-Dur] 20 meq PO BID #8 tablet Referrals: Freddy Dee MD [Primary Care Provider] - 1 Week if not improving
[2018-05-01 03:16] LABS: Bacteria 0 SEEN /hpf (None Seen); Mucous, Urine 0 SEEN /hpf (<or=2+); White Blood Cells 0 SEEN /hpf (0-5)
[2018-05-01 03:17] LABS: Color, Urine Straw (Yellow); Glucose, Dipstick Normal (Normal); Ketone-Dipstick Negative (Negative); Leukocyte Esterase-Dipstick Negative /ul (Negative); Nitrite-Dipstick Negative (Negative); Occult Blood-Urine 10 /ul (Negative); Protein-Dipstick Negative (Negative); Specific Gravity, Urine 1.005 (1.002-1.030); Urine Bilirubin Dipstick Negative (Negative); Urine Clarity Clear (Clear); Urine Urobilinogen Normal (Normal); Urine pH 6.5 (5.0 - 8.0)
[2018-05-01 03:25] LABS: Absolute Lymphocyte Count 4.02 X10^3/ul (0.83-4.51); Absolute Neutrophil Count 5.9 X10^3/uL (2.0-7.7); Basophil# 0.04 X10^3/uL; Basophil% 0.4 % (0-1); Eosinophil# 0.25 X10^3/uL; Eosinophils% 2.2 % (0-5); Hematocrit 43.4 % (37-47); Lymphocyte # 4.02 X10^3/ul (4.0); Lymphocyte % 35.5 % (19-41); Mean Corp Hgb Conc 34.6 g/gl (32-36); Mean Corpuscular Hgb 33.3 pg (27.0-32.0); Mean Corpuscular Volume 96.4 fL (81-99); Monocyte# 1.06 X10^3/uL; Monocyte% 9.4 % (0-10); Neutrophil % 52.1 % (47-70); POSITIVE COUNT NO; POSITIVE DIFFERENTIAL NO; POSITIVE MORPHOLOGY NO; Platelet Count 260 K/mm3 (150-450); RBC Distribution Width CV 12.7 % (11.6-14.6); White Blood Count 11.3 K/mm3 (4.4-11.0)
[2018-05-01 03:26] LABS: Red Blood Cells-Urine 0-5 SEEN /hpf (0-5); Squamous Epithelial Cells - UA 0-5 SEEN /hpf (5-10)
[2018-05-01 03:38] LABS: Anion Gap 10 (5-15); BUN 11 mg/dL (7-18); BUN/Creat Ratio 12.8 RATIO (10-20); Chloride 107 mmol/L (98-107); Creatinine, Serum 0.86 mg/dL (0.55-1.02); EST Glomerular Filtration Rate 73 mL/min (>60); Est Glom Filt Rate - Afr Amer 89 mL/min (>60); Estimated Creatinine Clearance 57.74 ml/min; Glucose 132 mg/dL (74-106); Potassium 3.4 mmol/L (3.5-5.1); Sodium Level 145 mmol/L (136-145)
[2018-05-01 04:10] VITALS: RESP 18
== END 2018-05-01 04:10 | disposition home or self-care (01) ==
PROVIDERS: Emergency Provider Emergency Medicine; Family Provider Family Medicine; PCP Family Medicine
DX: R23.2 Flushing (principal); M62.838 Other muscle spasm; E87.6 Hypokalemia; K59.00 Constipation, unspecified; F41.9 Anxiety disorder, unspecified; Z79.899 Other long term (current) drug therapy; F17.200 Nicotine dependence, unspecified, uncomplicated
CPT/HCPCS: 80048; 81001; 85025; 99282; A4216

== ENCOUNTER 2018-07-23 03:24 | Emergency (ER) | payer MEDICAID, SELFPAY ==
[2018-07-23 03:25] VITALS: BP 151/94; PULSE 124; RESP 16; TEMP 36.7; O2SAT 97; BMI 38.5
[2018-07-23 03:28] VITALS: PULSE 121; RESP 13; O2SAT 98
--- NOTE | 2018-07-23 03:55 | EKG12_ITS ---
Test Reason : Blood Pressure : / mmHG Vent. Rate : 111 BPM Atrial Rate : 111 BPM P-R Int : 132 ms QRS Dur : 084 ms QT Int : 340 ms P-R-T Axes : 049 077 046 degrees QTc Int : 462 ms Sinus tachycardia Nonspecific ST abnormality Abnormal ECG Confirmed by YEN HARRIS, WILBERT ([id number]), scientific publications editor DAVIDSON HENDRICKS ([id number]) on 07/25/2018 1:57:39 PM Referred By: CHANDLER Confirmed By:WILBERT BARLOW MD
--- NOTE | 2018-07-23 03:55 | RAD_ITS ---
STUDY: X-RAY CHEST REASON FOR EXAM: Female, 52 years old. Shortness of breath TECHNIQUE: Frontal and lateral views of the chest. COMPARISON: January 29, 2018. FINDINGS: Right basilar atelectasis. No focal consolidation.. There is no demonstrated pleural abnormality. Normal size heart. Normal mediastinum and ashley. Normal visualized pulmonary arteries. Normal visualized aortic arch and descending thoracic aorta. There are diffuse degenerative changes of the visualized thoracic spine. Normal visualized ribs, clavicles, and shoulders. There is no demonstrated abnormality of the visualized soft tissue structures of the upper abdomen. RAD/Chest PA and Lateral IMPRESSION: Right basilar atelectasis. No focal consolidation. Electronically Signed: Shakir Butler, at 5:28 EDT Tel , Service support ,
[2018-07-23] MEDS: Mag Hydrox/Al Hydrox/Simeth 30 ML UDC PO (04:07)
[2018-07-23 04:19] LABS: Anion Gap 9 (5-15); BUN 14 mg/dL (7-18); BUN/Creat Ratio 14.1 RATIO (10-20); Calcium,Total 8.7 mg/dL (8.5-10.1); Chloride 105 mmol/L (98-107); Creatinine, Serum 0.99 mg/dL (0.55-1.02); EST Glomerular Filtration Rate 62 mL/min (>60); Est Glom Filt Rate - Afr Amer 76 mL/min (>60); Estimated Creatinine Clearance 50.16 ml/min; Glucose 229 mg/dL (74-106); Potassium 3.4 mmol/L (3.5-5.1); Sodium Level 139 mmol/L (136-145)
[2018-07-23 05:05] LABS: Absolute Lymphocyte Count 4.75 X10^3/ul (0.83-4.51); Absolute Neutrophil Count 6.7 X10^3/uL (2.0-7.7); Basophil# 0.05 X10^3/uL; Basophil% 0.4 % (0-1); Eosinophil# 0.36 X10^3/uL; Eosinophils% 2.8 % (0-5); Hematocrit 45.8 % (37-47); Hemoglobin 15.7 g/dl (12.0-15.0); Lymphocyte # 4.75 X10^3/ul (4.0); Lymphocyte % 36.7 % (19-41); Mean Corp Hgb Conc 34.3 g/gl (32-36); Mean Corpuscular Hgb 32.9 pg (27.0-32.0); Mean Platelet Vol. 10.4 fl (6.2-12.0); Monocyte# 1.03 X10^3/uL; Neutrophil # 6.71 X10^3/uL (2.7-7.7); Neutrophil % 51.8 % (47-70); Platelet Count 310 K/mm3 (150-450); RBC Distribution Width SD 44.7 fl (35.1-43.9); Red Blood Count 4.77 M/mm3 (4.2-5.4); White Blood Count 12.9 K/mm3 (4.4-11.0)
[2018-07-23 05:09] LABS: POSITIVE COUNT NO; POSITIVE DIFFERENTIAL NO; POSITIVE MORPHOLOGY NO
[2018-07-23 05:24] VITALS: BP 125/88; PULSE 93; RESP 13; O2SAT 93
--- NOTE | 2018-07-23 05:41 | ED.DCSUM_ITS ---
- ER Visit Summary Date of Service: 07/23/18 Chief Complaint: Palpitations History of Present Illness: The patient is a 52 F who woke this morning less than 1 hour before presentation with sweats and palpitations. She also felt a little short of breath. She reports nausea. No vomiting. No diarrhea. No chest pain. No fever. She also complains of reflux. She has a history of severe reflux which is difficult to control. She complains of burning only in the back of her throat. No burning in the chest. No chest pain. They had discussed surgery with her but she did not want to have this done. She does have a prior history of palpitations and has undergone previous workup with this including seeing cardiology for palpitations and sinus tachycardia. Physical Examination: Initial heart rate 121 vitals otherwise normal Moist mucous membranes Heart regular rate and rhythm Lungs are clear Abdomen soft nontender Alert Test Results: EKG shows sinus rhythm at a rate of 111 there is some subtle diffuse ST depression although this is unchanged from prior EKG. Chest x-ray shows atelectasis no consolidation. Labs are notable for white blood cell count 12.9, glucose 229, potassium 3.4. Troponin negative. Emergency Department Course and Treatment: Patient notes that her palpitations have largely begun to improve and her sweats are resolved. She is still complaining of reflux. She was given Mylanta. At the time of my exam her heart rate had already improved to less than 100. On reevaluation she is sleeping in a chair and her heart rate is 90. She was advised to follow-up with her primary care physician. She understands to return for new or worsening symptoms. She was discharged. Treatment Plan: [] Disposition: [] Impression: [] This note was generated with [employer] dictation software. It may contain incorrect words, spelling, and punctuation that were not noted in review of the chart prior to signing ED Disposition - Plan for ED Patient: Referrals: Freddy Dee MD [Primary Care Provider] -
--- NOTE | 2018-07-23 05:41 | ED.DEP ---
ED Disposition - Plan for ED Patient: Instructions: ED Palpitations Referrals: Freddy Dee MD [Primary Care Provider] -
[2018-07-23 05:49] VITALS: BP 134/94; PULSE 91; RESP 19; O2SAT 95
== END 2018-07-23 05:50 | disposition home or self-care (01) ==
PROVIDERS: Emergency Provider Emergency Medicine; Family Provider Family Medicine; PCP Family Medicine
DX: R00.2 Palpitations (principal); K21.9 Gastro-esophageal reflux disease without esophagitis; R11.0 Nausea; R06.00 Dyspnea, unspecified; Z72.0 Tobacco use; Z79.899 Other long term (current) drug therapy
CPT/HCPCS: 71046; 80048; 84484; 85025; 93005; 99285; A4216

== ENCOUNTER 2018-08-25 10:43 | Emergency (ER) | payer MEDICAID, SELFPAY ==
[2018-08-25 10:44] VITALS: BP 151/110; PULSE 109; RESP 16; TEMP 36.1; O2SAT 97; BMI 37.8
[2018-08-25 11:14] VITALS: O2SAT 95
--- NOTE | 2018-08-25 11:44 | EKG12_ITS ---
Test Reason : DIZZINESS Blood Pressure : / mmHG Vent. Rate : 076 BPM Atrial Rate : 076 BPM P-R Int : 140 ms QRS Dur : 086 ms QT Int : 408 ms P-R-T Axes : 060 073 052 degrees QTc Int : 459 ms Normal sinus rhythm with sinus arrhythmia Normal ECG Confirmed by ARYA HARRIS, JUAN ([id number]), primer expeditor and drier DAVIDSON HENDRICKS ([id number]) on 08/30/2018 1:53:46 PM Referred By: RAE Confirmed By:JUAN KOENIG MD
--- NOTE | 2018-08-25 11:44 | RAD_ITS ---
STUDY: X-RAY CHEST REASON FOR EXAM: Female, 52 years old. Intermittent palpitation. TECHNIQUE: Single AP portable view of the chest. COMPARISON: Comparison is made with prior study dated July 23, 2018. FINDINGS: EKG electrodes are seen. The lungs are clear and expanded. Scattered calcified granulomas. There is no demonstrated pleural abnormality. Normal size heart. Normal mediastinum and ashley. Normal visualized pulmonary arteries. Normal visualized aortic arch and descending thoracic aorta. There are degenerative changes of the visualized thoracic spine. Normal visualized ribs, clavicles, and shoulders. There is no demonstrated abnormality of the visualized soft tissue structures of the upper abdomen. RAD/Chest 1 View (Portable) IMPRESSION: No acute abnormality is seen. Electronically Signed: Júnior Bailon, at 12:30 EDT , Service support ,
[2018-08-25 12:08] VITALS: O2SAT 95
[2018-08-25 12:12] LABS: Absolute Lymphocyte Count 2.85 X10^3/ul (0.83-4.51); Absolute Neutrophil Count 6.7 X10^3/uL (2.0-7.7); Basophil# 0.03 X10^3/uL; Basophil% 0.3 % (0-1); Eosinophil# 0.13 X10^3/uL; Eosinophils% 1.2 % (0-5); Hematocrit 46.8 % (37-47); Lymphocyte # 2.85 X10^3/ul (4.0); Lymphocyte % 26.9 % (19-41); Mean Corp Hgb Conc 34.2 g/gl (32-36); Mean Corpuscular Hgb 32.8 pg (27.0-32.0); Mean Corpuscular Volume 95.9 fL (81-99); Mean Platelet Vol. 9.8 fl (6.2-12.0); Monocyte# 0.82 X10^3/uL; Monocyte% 7.7 % (0-10); Neutrophil # 6.74 X10^3/uL (2.7-7.7); Neutrophil % 63.5 % (47-70); Platelet Count 288 K/mm3 (150-450); RBC Distribution Width CV 12.8 % (11.6-14.6); RBC Distribution Width SD 44.8 fl (35.1-43.9); Red Blood Count 4.88 M/mm3 (4.2-5.4); White Blood Count 10.6 K/mm3 (4.4-11.0)
[2018-08-25 12:15] LABS: POSITIVE COUNT NO; POSITIVE DIFFERENTIAL NO; POSITIVE MORPHOLOGY NO
--- NOTE | 2018-08-25 12:16 | ED.VISSUMM ---
- ER Visit Summary Date of Service: 08/25/18 Chief Complaint: [] Diffuse muscle cramps heart racing history of same History of Present Illness: The patient is a 52 F [] reports that yesterday she been having diffuse intermittent muscle cramps involving every part of her body, she also reports intermittent racing heart sensation, she has had all the symptoms in the past, exact etiology is unclear, she is actually been seen by cardiology and an EP assistant spa director she has had extensive cardiology testing and is never been found to have any history of dysrhythmia heart disease PE DE or DVT, she is actually scheduled to see her assistant spa director today in the office around 130, she does have thyroid disorder and she is currently taking her Synthroid and she wants her TSH checked, she was recently seen by outpatient providers who put her on amoxicillin for sinus condition Physical Examination: [] Vital signs are unremarkable General, no distress resting comfortably, her heart rate is 104 sinus rhythm HEENT is generally unremarkable The neck is supple no adenopathy Cardiovascular, regular rate and rhythm Lungs, clear bilateral Abdomen, soft nontender Extremities, no clubbing cyanosis or edema Neurologic, awake alert answering questions appropriately moving all 4 extremities Test Results: [] Emergency Department Course and Treatment: [] Exam is unremarkable she has no risk factors for DE PE or DVT she indicates she has had the symptoms before she is concerned that somehow her thyroid is contributing to the above even though she is taking and thyroid she has not missed any doses, she is also complaining that she has described a sinus pressure but she was started on the amoxicillin yesterday, she is scheduled to see her assistant spa director at 130 today at this time will obtain screening labs reevaluate Treatment Plan: [] Screening labs are all generally unremarkable except the d-dimer was elevated 2.3, EKG showed a sinus rhythm nothing acute. 104, CTA chest showed nothing acute no dissection no signs of PE or tsh is 2.7 she is remained asymptomatic here At this time is pain to her test results explained her the need for her to follow-up with her family physicians for these recurrent issues other outpatient providers and return for change in symptoms Disposition: [] Impression: [] Palpitations etiology unclear,. Diffuse muscle cramps etiology unclear This note was generated with [employer] software. It may contain incorrect words, spelling, and punctuation that were not noted in review of the chart prior to signing ED Disposition - Plan for ED Patient: Referrals: Freddy Dee MD [Primary Care Provider] -
--- NOTE | 2018-08-25 12:20 | ED.DCSUM_ITS ---
- ER Visit Summary Date of Service: 08/25/18 Chief Complaint: [] Diffuse muscle cramps heart racing history of same History of Present Illness: The patient is a 52 F [] reports that yesterday she been having diffuse intermittent muscle cramps involving every part of her body, she also reports intermittent racing heart sensation, she has had all the symptoms in the past, exact etiology is unclear, she is actually been seen by cardiology and an EP biometrics experimentalist she has had extensive cardiology testing and is never been found to have any history of dysrhythmia heart disease PE [place] or DVT, she is actually scheduled to see her biometrics experimentalist today in the office around 130, she does have thyroid disorder and she is currently taking her Synthroid and she wants her TSH checked, she was recently seen by outpatient providers who put her on amoxicillin for sinus condition Physical Examination: [] Vital signs are unremarkable General, no distress resting comfortably, her heart rate is 104 sinus rhythm HEENT is generally unremarkable The neck is supple no adenopathy Cardiovascular, regular rate and rhythm Lungs, clear bilateral Abdomen, soft nontender Extremities, no clubbing cyanosis or edema Neurologic, awake alert answering questions appropriately moving all 4 extremities Test Results: [] Emergency Department Course and Treatment: [] Exam is unremarkable she has no risk factors for IL PE or DVT she indicates she has had the symptoms before she is concerned that somehow her thyroid is contributing to the above even though she is taking and thyroid she has not missed any doses, she is also complaining that she has described a sinus pressure but she was started on the amoxicillin yesterday, she is scheduled to see her biometrics experimentalist at 130 today at this time will obtain screening labs reevaluate Treatment Plan: [] Screening labs are all generally unremarkable except the d- dimer was elevated 2.3, EKG showed a sinus rhythm nothing acute. 104, CTA chest showed nothing acute no dissection no signs of PE or tsh is 2.7 she is remained asymptomatic here At this time is pain to her test results explained her the need for her to follow-up with her family physicians for these recurrent issues other outpatient providers and return for change in symptoms Disposition: [] Impression: [] Palpitations etiology unclear,. Diffuse muscle cramps etiology unclear This note was generated with [employer] software. It may contain incorrect words, spelling, and punctuation that were not noted in review of the chart prior to signing ED Disposition - Plan for ED Patient: Referrals: Freddy Dee MD [Primary Care Provider] -
[2018-08-25 12:35] LABS: D-Dimer Quantitative (DVT/PE) 2.35 FEU/ug/m (0.27-0.49)
--- NOTE | 2018-08-25 12:36 | CT_ITS ---
We are attempting to reach Elfego Radford to discuss findings. An addendum with communication details will be sent when the communication is complete. STUDY: CTA CHEST REASON FOR EXAM: Female, 52 years old. 2 day history of palpitations and elevated d-dimer. RADIATION DOSAGE (If Supplied By Facility): CTDIvol = ( 12.11 ) mGy, DLP = ( 491.20 ) mGycm TECHNIQUE: The examination was performed with the intravenous administration of 100CC IV Isovue 370. Post-processing of the angiographic images was performed, with multiplanar reformation and 3D reconstruction. Individualized dose optimization techniques were used for this CT. COMPARISON: Comparison is made with prior study dated February 10, 2017. FINDINGS: Normal enhancement of the main pulmonary artery and right and left pulmonary arteries. Normal enhancement of the bilateral peripheral pulmonary arteries. There is no demonstrated pulmonary embolism. Normal thoracic aorta and visualized great vessels. There is no demonstrated aortic dissection. Normal heart and pericardium. Normal mediastinum. Normal hilar regions. Normal visualized trachea and bronchi. The lungs are well expanded. Normal pulmonary parenchyma. Normal pleura. Normal chest wall structures. There are degenerative changes of thoracic spine. There is a 1.4 cm hypodense nodule in the left adrenal gland suggestive of adrenal adenoma. Fatty infiltration of the liver. CT/CTA Chest W/WO Contrast IMPRESSION: Normal CTA chest examination, without a demonstrated pulmonary embolism or arterial dissection. Findings suggestive of a small left adrenal adenoma. Fatty infiltration of the liver. Pending Final Proof Editing
[2018-08-25 12:40] LABS: BNP,B-Type NATRIURETIC PEPTIDE 5.5 pg/mL (0-100)
[2018-08-25 12:42] LABS: Anion Gap 6 (5-15); BUN 9 mg/dL (7-18); Calcium,Total 8.9 mg/dL (8.5-10.1); Chloride 108 mmol/L (98-107); EST Glomerular Filtration Rate 70 mL/min (>60); Est Glom Filt Rate - Afr Amer 85 mL/min (>60); Estimated Creatinine Clearance 55.18 ml/min; Glucose 130 mg/dL (74-106); Sodium Level 142 mmol/L (136-145); Thyroid Stim Hormone (TSH) 2.74 uIU/mL (0.358-3.74)
[2018-08-25 12:56] VITALS: BP 151/105; PULSE 93; RESP 11; O2SAT 98
[2018-08-25] MEDS: 0.9% Normal Saline 1,000 ML 150 ML IV (12:57)
[2018-08-25 15:06] VITALS: BP 112/85; PULSE 90; RESP 25; O2SAT 97
--- NOTE | 2018-08-25 15:15 | ED.DEP ---
ED Disposition - Plan for ED Patient: Instructions: ED Palpitations Referrals: Freddy Dee MD [Primary Care Provider] -
[2018-08-25 15:33] VITALS: BP 149/99; PULSE 99; RESP 16; O2SAT 99
--- NOTE | 2018-08-27 01:43 | ED.RN ---
Patient called in at this time with concern of her CT scan results. Patient was given copy of CT results upon discharge from ER. Ct results state they were attempting to reach Dr. Smith to discuss findings. At this time neither the radiologist or Dr. Pozo are in the ER. Spoke with radiology they have no further information about this study. They believe radiologist wanted to discuss results via phone. CT results were complete with no further information. Information relayed to patient at this time. Patient unhappy with the discussion at this time. I explained to the patient at this time I do not have an accurate answer for her. Explained to the patient she is welcomed to return to the ER for a second opinion or seek medical attention at another hospital. Patient will attempt to contact radiologist for further answers.
== END 2018-08-25 15:34 | disposition home or self-care (01) ==
PROVIDERS: Emergency Provider Emergency Medicine; Family Provider Family Medicine; PCP Family Medicine
DX: R00.2 Palpitations (principal); R25.2 Cramp and spasm; E07.9 Disorder of thyroid, unspecified; Z79.899 Other long term (current) drug therapy
CPT/HCPCS: 71045; 71275; 80048; 83880; 84443; 84484; 85025; 85379; 93005; 96360; 96361; 99285; J7030; J7040; J7050; Q9967; A4216

== ENCOUNTER 2018-08-25 19:22 | Emergency (ER) | payer MEDICAID, SELFPAY ==
[2018-08-25 10:44] VITALS: BMI 37.8
[2018-08-25 19:25] VITALS: BP 163/95; PULSE 103; RESP 17; TEMP 35.9; O2SAT 98; BMI 38.1
--- NOTE | 2018-08-25 19:25 | ED.RN ---
pulled old jacob for
--- NOTE | 2018-08-25 20:02 | EKG12_ITS ---
Test Reason : PALPS Blood Pressure : / mmHG Vent. Rate : 118 BPM Atrial Rate : 118 BPM P-R Int : 136 ms QRS Dur : 088 ms QT Int : 334 ms P-R-T Axes : 054 066 038 degrees QTc Int : 468 ms Sinus tachycardia Nonspecific ST abnormality Abnormal ECG Confirmed by ARYA HARRIS, JUAN ([id number]), commercial production editor DAVIDSON HENDRICKS ([id number]) on 08/30/2018 1:53:14 PM Referred By: KAYLYN Confirmed By:JUAN KOENIG MD
[2018-08-25 20:47] LABS: Absolute Neutrophil Count 6.6 X10^3/uL (2.0-7.7); Basophil# 0.04 X10^3/uL; Basophil% 0.3 % (0-1); Eosinophil# 0.16 X10^3/uL; Eosinophils% 1.4 % (0-5); Hematocrit 44.3 % (37-47); Lymphocyte % 30.3 % (19-41); Mean Corp Hgb Conc 33.9 g/gl (32-36); Mean Corpuscular Hgb 32.4 pg (27.0-32.0); Mean Corpuscular Volume 95.7 fL (81-99); Monocyte# 1.21 X10^3/uL; Monocyte% 10.5 % (0-10); Neutrophil # 6.62 X10^3/uL (2.7-7.7); Neutrophil % 57.2 % (47-70); Platelet Count 283 K/mm3 (150-450); RBC Distribution Width CV 12.9 % (11.6-14.6); RBC Distribution Width SD 44.6 fl (35.1-43.9); Red Blood Count 4.63 M/mm3 (4.2-5.4); White Blood Count 11.6 K/mm3 (4.4-11.0)
[2018-08-25 20:51] LABS: POSITIVE COUNT NO; POSITIVE DIFFERENTIAL NO; POSITIVE MORPHOLOGY NO
[2018-08-25 21:22] VITALS: BP 126/85; PULSE 85; RESP 18; O2SAT 97
[2018-08-25 21:29] LABS: Anion Gap 6 (5-15); BUN 9 mg/dL (7-18); Calcium,Total 8.6 mg/dL (8.5-10.1); Chloride 108 mmol/L (98-107); Creatinine, Serum 0.82 mg/dL (0.55-1.02); EST Glomerular Filtration Rate 78 mL/min (>60); Est Glom Filt Rate - Afr Amer 94 mL/min (>60); Estimated Creatinine Clearance 60.56 ml/min; Glucose 102 mg/dL (74-106); Potassium 3.4 mmol/L (3.5-5.1); Sodium Level 141 mmol/L (136-145)
--- NOTE | 2018-08-25 22:42 | ED.VISSUMM ---
- ER Visit Summary Date of Service: 08/25/18 Chief Complaint: Palpitations History of Present Illness: The patient is a 52 F who presents with palpitations. Patient has chronic palpitations and has been seen many times in the past. She has seen an regional company flatbed truck driver. She has worn a 30-day Holter monitor. She had urine metanephrine testing. She was seen earlier in the ED today and had a negative work-up as well as a negative CTA. Patient presents with persistent symptoms. No new or different symptoms. Physical Examination: Afebrile and vital signs unremarkable. Alert and oriented. No acute distress. Heart regular. Lungs clear. Abdomen soft. Skin appears normal. Calves soft and supple. Test Results: EKG showed sinus rhythm at a rate of 76. No sign of acute ischemia or infarction pattern. No ectopy or other abnormal findings. Blood work unremarkable. Troponin normal. Chest x-ray was not repeated. Emergency Department Course and Treatment: Patient presents with palpitations. No new or worsening symptoms. No red flag features. She has had an extensive previous work-up as well as prior work-up today. I did repeat her blood work and EKG. Findings are stable. The patient is appropriate for outpatient follow-up. She was reassured. Treatment Plan: As above Disposition: Discharge Impression: Palpitations This note was generated with [employer] dictation software. It may contain incorrect words, spelling, and punctuation that were not noted in review of the chart prior to signing ED Disposition - Plan for ED Patient: Referrals: Freddy Dee MD [Primary Care Provider] -
--- NOTE | 2018-08-25 22:45 | ED.DCSUM_ITS ---
- ER Visit Summary Date of Service: 08/25/18 Chief Complaint: Palpitations History of Present Illness: The patient is a 52 F who presents with palpitations. Patient has chronic palpitations and has been seen many times in the past. She has seen an procurement internship. She has worn a 30-day Holter monitor. She had urine metanephrine testing. She was seen earlier in the ED today and had a negative work-up as well as a negative CTA. Patient presents with persistent symptoms. No new or different symptoms. Physical Examination: Afebrile and vital signs unremarkable. Alert and oriented. No acute distress. Heart regular. Lungs clear. Abdomen soft. Skin appears normal. Calves soft and supple. Test Results: EKG showed sinus rhythm at a rate of 76. No sign of acute ischemia or infarction pattern. No ectopy or other abnormal findings. Blood work unremarkable. Troponin normal. Chest x-ray was not repeated. Emergency Department Course and Treatment: Patient presents with palpitations. No new or worsening symptoms. No red flag features. She has had an extensive previous work-up as well as prior work-up today. I did repeat her blood work and EKG. Findings are stable. The patient is appropriate for outpatient follow-up. She was reassured. Treatment Plan: As above Disposition: Discharge Impression: Palpitations This note was generated with [employer] dictation software. It may contain incorrect words, spelling, and punctuation that were not noted in review of the chart prior to signing ED Disposition - Plan for ED Patient: Referrals: Freddy Dee MD [Primary Care Provider] -
--- NOTE | 2018-08-25 22:45 | ED.DEP ---
ED Disposition - Plan for ED Patient: Instructions: ED Palpitations Referrals: Freddy Dee MD [Primary Care Provider] -
[2018-08-25 22:53] VITALS: BP 134/86; PULSE 88; RESP 22; O2SAT 97
== END 2018-08-25 22:54 | disposition home or self-care (01) ==
PROVIDERS: Emergency Provider Emergency Medicine; Family Provider Family Medicine; PCP Family Medicine
DX: R00.2 Palpitations (principal); R25.2 Cramp and spasm; E07.9 Disorder of thyroid, unspecified; Z79.899 Other long term (current) drug therapy; Z72.0 Tobacco use
CPT/HCPCS: 71045; 71275; 80048; 83880; 84443; 84484; 85025; 85379; 93005; 96360; 96361; 99284; 99285; J7030; J7040; J7050; Q9967; A4216

== ENCOUNTER 2018-09-26 14:08 | Emergency (ER) | payer MEDICAID, SELFPAY ==
[2018-09-26 14:08] VITALS: BP 138/88; PULSE 117; RESP 22; TEMP 36.4; O2SAT 98; BMI 35.7
[2018-09-26 15:19] LABS: Bacteria 0 SEEN /hpf (None Seen); Mucous, Urine 0 SEEN /hpf (<or=2+); Red Blood Cells-Urine 0 SEEN /hpf (0-5); Squamous Epithelial Cells - UA 0 SEEN /hpf (5-10); White Blood Cells 0 SEEN /hpf (0-5)
[2018-09-26 15:20] LABS: Color, Urine Yellow (Yellow); Glucose, Dipstick Normal (Normal); Ketone-Dipstick Negative (Negative); Leukocyte Esterase-Dipstick Negative /ul (Negative); Nitrite-Dipstick Negative (Negative); Occult Blood-Urine 25 /ul (Negative); Protein-Dipstick Negative (Negative); Specific Gravity, Urine 1.005 (1.002-1.030); Urine Bilirubin Dipstick Negative (Negative); Urine Clarity Clear (Clear); Urine Urobilinogen Normal (Normal); Urine pH 6.5 (5.0 - 8.0)
[2018-09-26 15:25] LABS: Absolute Lymphocyte Count 3.73 X10^3/ul (0.83-4.51); Absolute Neutrophil Count 7.6 X10^3/uL (2.0-7.7); Basophil# 0.04 X10^3/uL; Basophil% 0.3 % (0-1); Eosinophil# 0.12 X10^3/uL; Hematocrit 48.5 % (37-47); Hemoglobin 16.4 g/dl (12.0-15.0); Lymphocyte # 3.73 X10^3/ul (4.0); Lymphocyte % 29.7 % (19-41); Mean Corp Hgb Conc 33.8 g/gl (32-36); Mean Corpuscular Hgb 32.5 pg (27.0-32.0); Mean Corpuscular Volume 96.2 fL (81-99); Mean Platelet Vol. 9.9 fl (6.2-12.0); Monocyte# 0.99 X10^3/uL; Monocyte% 7.9 % (0-10); Neutrophil # 7.63 X10^3/uL (2.7-7.7); Neutrophil % 60.7 % (47-70); Platelet Count 318 K/mm3 (150-450); RBC Distribution Width CV 12.6 % (11.6-14.6); RBC Distribution Width SD 43.8 fl (35.1-43.9); Red Blood Count 5.04 M/mm3 (4.2-5.4); White Blood Count 12.6 K/mm3 (4.4-11.0)
[2018-09-26 15:47] LABS: POSITIVE COUNT NO; POSITIVE DIFFERENTIAL NO; POSITIVE MORPHOLOGY NO
[2018-09-26 16:05] LABS: Anion Gap 8 (5-15); BUN 10 mg/dL (7-18); Calcium,Total 9.4 mg/dL (8.5-10.1); Chloride 106 mmol/L (98-107); EST Glomerular Filtration Rate 69 mL/min (>60); Est Glom Filt Rate - Afr Amer 84 mL/min (>60); Estimated Creatinine Clearance 57.83 ml/min; Glucose 118 mg/dL (74-106); Potassium 3.6 mmol/L (3.5-5.1); Sodium Level 142 mmol/L (136-145); Thyroid Stim Hormone (TSH) 2.13 uIU/mL (0.358-3.74)
[2018-09-26 16:11] LABS: BNP,B-Type NATRIURETIC PEPTIDE 14.1 pg/mL (0-100)
--- NOTE | 2018-09-26 16:17 | ED.DCSUM_ITS ---
- ER Visit Summary Date of Service: 09/26/18 Chief Complaint: Urinary frequency History of Present Illness: The patient is a 52 F with urinary frequency for the past 2 days. She urinated 16 times yesterday. She was seen in urgent care where urine showed no sign of infection and she was sent to the ER. She denies any recent change in medications or diet. She also complaining of some pressure in her face and burning the roof of her mouth. She is concerned for sinus infection. She states had similar symptoms recently that improved on amoxicillin but of recently recurred. Patient reports that she is borderline diabetic. She is monitoring her blood sugars in the last couple days and they have been in normal range. Physical Examination: Vital signs significant for heart rate of 117, otherwise unremarkable. Patient sitting in bedside chair. She is in no acute distress and nontoxic- appearing. Heart is slightly tachycardic and regular. Lung sounds are clear. Abdomen is soft and nontender. She has no back or CVA tenderness. Test Results: CBC was white count 12.6 with hemoglobin 16.4. These are consistent with her prior values. No left shift is noted. Chemistry studies normal. Urinalysis normal. BNP is 14. TSH is normal. Emergency Department Course and Treatment: On repeat evaluation patient's heart rate is 72. Her electrolytes and urinalysis here to be completely within normal limits. She will continue to monitor her symptoms. She will be given a course of Augmentin for sinus infection. Treatment Plan: [] Disposition: Discharge Impression: 1. Urinary frequency 2. Sinusitis This note was generated with let[employer]s dictation software. It may contain incorrect words, spelling, and punctuation that were not noted in review of the chart prior to signing ED Disposition - Plan for ED Patient: Disposition: Home or Assisted Living Instructions: ED Sinusitis Abx Tx Prescriptions: Amox/Clavulanate Tablet [Augmentin Tablet] 875 mg PO Q12H #20 tablet Referrals: Freddy Dee MD [Primary Care Provider] - 5-7 Days Additional Instructions: We have not found a specific cause of your urinary frequency. Monitor your symptoms over the next several days - have repeat bloodwork done in 4-5 days if symptoms persist.
[2018-09-26 16:24] VITALS: BP 134/87; PULSE 75
== END 2018-09-26 16:25 | disposition home or self-care (01) ==
PROVIDERS: Emergency Provider Emergency Medicine; Family Provider Family Medicine; PCP Family Medicine
DX: R35.0 Frequency of micturition (principal); J32.9 Chronic sinusitis, unspecified; E03.9 Hypothyroidism, unspecified; Z79.899 Other long term (current) drug therapy; Z72.0 Tobacco use
CPT/HCPCS: 80048; 81001; 83880; 84443; 85025; 99283; A4216

== ENCOUNTER 2019-03-31 17:11 | Emergency (ER) | payer MEDICAID, SELFPAY ==
[2019-03-31 17:14] VITALS: BP 191/90; PULSE 128; RESP 18; TEMP 36.4; O2SAT 96; BMI 37.0
--- NOTE | 2019-03-31 17:29 | EKG12_ITS ---
Test Reason : PALPITATIONS Blood Pressure : / mmHG Vent. Rate : 124 BPM Atrial Rate : 124 BPM P-R Int : 130 ms QRS Dur : 080 ms QT Int : 322 ms P-R-T Axes : 054 069 034 degrees QTc Int : 462 ms Sinus tachycardia Possible Left atrial enlargement Nonspecific ST abnormality Abnormal ECG Confirmed by JABARI HARRIS, ELENI ([id number]), editor managing director BERNA DEL TORO ([id number]) on 04/02/2019 9:41:01 AM Referred By: ISRA/CHRIS Confirmed By:LOPEZ BARBOZA MD
--- NOTE | 2019-03-31 17:30 | RAD_ITS ---
STUDY: X-RAY CHEST REASON FOR EXAM: Female, 53 years old. Chest pain. TECHNIQUE: Single AP portable view of the chest. COMPARISON: 08/25/2018. FINDINGS: The lungs are clear and expanded. There is no demonstrated pleural abnormality. Normal size heart. Normal mediastinum and ashley. Normal visualized pulmonary arteries. Normal visualized aortic arch and descending thoracic aorta. Normal visualized thoracic spine. Normal visualized ribs, clavicles, and shoulders. There is no demonstrated abnormality of the visualized soft tissue structures of the upper abdomen. RAD/Chest 1 View (Portable) IMPRESSION: Normal x-ray examination of the chest. Electronically Signed: Nikunj Mckeon MD at 17:54 EST , Service support ,
[2019-03-31] MEDS: 0.9% Normal Saline 1,000 ML 1000 ML IV (18:18)
[2019-03-31 18:21] VITALS: BP 157/95; PULSE 87; RESP 16; O2SAT 96
[2019-03-31 18:22] LABS: Absolute Neutrophil Count 7.5 X10^3/uL (2.0-7.7); Basophil# 0.06 X10^3/uL; Basophil% 0.5 % (0-1); Eosinophil# 0.11 X10^3/uL; Eosinophils% 0.9 % (0-5); Hematocrit 45.7 % (37-47); Hemoglobin 15.5 g/dL (12.0-15.0); Mean Corp Hgb Conc 33.9 g/dL (32-36); Mean Corpuscular Hgb 32.8 pg (27.0-32.0); Mean Corpuscular Volume 96.6 fL (81-99); Mean Platelet Vol. 9.8 fl (6.2-12.0); Monocyte# 0.85 X10^3/uL; Monocyte% 7.1 % (0-10); NRBC Flagged by Analyzer 0 % (0-5); Neutrophil # 7.46 X10^3/uL (2.7-7.7); Neutrophil % 61.9 % (47-70); Platelet Count 300 K/mm3 (150-450); RBC Distribution Width SD 42.9 fl (35.1-43.9); Red Blood Count 4.73 M/mm3 (4.2-5.4); White Blood Count 12.1 K/mm3 (4.4-11.0)
[2019-03-31 18:37] LABS: D-Dimer Quantitative (DVT/PE) 2.03 FEU/ug/m (0.27-0.49)
[2019-03-31 18:49] LABS: Anion Gap 6 (5-15); BUN 10 mg/dL (7-18); Calcium,Total 9.1 mg/dL (8.5-10.1); Chloride 109 mmol/L (98-107); EST Glomerular Filtration Rate 62 mL/min (>60); Est Glom Filt Rate - Afr Amer 75 mL/min (>60); Estimated Creatinine Clearance 49.09 ml/min; Glucose 162 mg/dL (74-106); Potassium 3.4 mmol/L (3.5-5.1); Sodium Level 142 mmol/L (136-145); Thyroid Stim Hormone (TSH) 2.09 uIU/mL (0.358-3.74)
--- NOTE | 2019-03-31 18:56 | CT_ITS ---
STUDY: CTA CHEST REASON FOR EXAM: Female, 53 years old. Palpitations. Tachycardia. RADIATION DOSAGE (If Supplied By Facility): CTDIvol = ( 18.02 ) mGy, DLP = ( 1741.22 ) mGycm TECHNIQUE: The examination was performed with the intravenous administration of IV 100mL Isovue-370. Post-processing of the angiographic images was performed, with multiplanar reformation and 3D reconstruction. Individualized dose optimization techniques were used for this CT. COMPARISON: None. FINDINGS: Normal enhancement of the main pulmonary artery and right and left pulmonary arteries. Normal enhancement of the bilateral peripheral pulmonary arteries. There is no demonstrated pulmonary embolism. Normal thoracic aorta and visualized great vessels. There is no demonstrated aortic dissection. Normal heart and pericardium. Normal mediastinum. Normal hilar regions. Normal visualized trachea and bronchi. The lungs are hyper expanded, with flattening of the hemidiaphragms. No infiltrates. No effusions. Normal chest wall structures. Normal osseous structures. Normal visualized upper abdomen. CT/CTA Chest W/WO Contrast IMPRESSION: Normal CTA chest examination, without a demonstrated pulmonary embolism or arterial dissection. There are findings consistent with COPD. There is no evidence of acute chest disease. Electronically Signed: Nikunj Mckeon MD at 19:58 EST , Service support ,
[2019-03-31 19:00] VITALS: BP 132/78; PULSE 96; RESP 16; O2SAT 96
--- NOTE | 2019-03-31 19:08 | CT_ITS ---
STUDY: CT ABDOMEN AND PELVIS WITH CONTRAST REASON FOR EXAM: Female, 53 years old. Palpitation. Pelvic pain. RADIATION DOSAGE (If Supplied By Facility): CTDIvol = ( 18.02 ) mGy, DLP = ( 1741.22 ) mGycm TECHNIQUE: Transaxial images were obtained from the dome of the diaphragm to the symphysis pubis without oral contrast. IV 100mL Isovue-370 was administered. Sagittal and coronal images were reconstructed. Individualized dose optimization techniques were used for this CT. COMPARISON: 01/29/2018 FINDINGS: The visualized lung bases are unremarkable. The visualized portions of the heart are within normal limits. Normal liver. There is non-visualization of the gallbladder, which may be secondary to either contraction or a prior cholecystectomy. Normal spleen. Normal pancreas. Normal bilateral adrenal glands. Normal right kidney. Normal left kidney. Bilateral stable small cortical cysts. Evaluation of the GI tract is limited by absence of oral contrast. Cannot exclude stomach wall thickening. No dilated loops of bowel or evidence for obstruction. Cannot exclude segmental thickening of the elias of the small or large bowel. Cannot exclude enteritis or colitis. Moderate diffuse fecal retention. Appendix within normal limits. There is diffuse atherosclerotic calcification of the abdominal aorta, without a demonstrated aneurysm. Normal inferior vena cava. Normal retroperitoneum. Normal urinary bladder. Normal visualized uterus. Normal abdominal wall. Normal osseous structures. CT/Abdomen/Pelvis W IV Cont ONLY IMPRESSION: No definite acute or significant abnormality seen. Electronically Signed: Nikunj Mckeon MD at 20:17 EST , Service support ,
--- NOTE | 2019-03-31 20:34 | ED.VISSUMM ---
- ER Visit Summary Date of Service: 03/31/19 Chief Complaint: Heart racing History of Present Illness: The patient is a 53 F who presents for her heart racing. It started about an hour prior to arrival. She felt her heart rate was in the 150s. She says her skin feels like it is burning at times. She has a history of SVT, but it only lasted for several seconds on monitoring. She never required cardioversion, ablation, or other procedures. History of hypertension. She was also recently on female hormones. She is a smoker. Denies any history of PE. Physical Examination: Afebrile and vital signs unremarkable except blood pressure 191/90 and heart rate 128. Patient appears uncomfortable but not toxic or in distress. Heart is tachycardic but regular. Lungs are clear. Abdomen soft nontender. Extremities nontender. Skin normal. Test Results: EKG showed sinus rhythm at a rate of [address] changes and left atrial enlargement. White count 12.2 and hemoglobin 15.5. Potassium 3.4. Glucose 162. TSH normal. Troponin normal. D-dimer elevated. CTA was performed which showed signs of COPD. CT abdomen pelvis was unremarkable. Emergency Department Course and Treatment: Patient initially presents with tachycardia. She has some mild shortness of breath. Denies any significant pain. She was placed on a monitor. EKG as above. She was treated with fluid bolus. Lab work was fairly unremarkable except her d-dimer was elevated. A subsequent CT was ordered and showed no evidence of PE. She does have changes consistent with COPD. When I ordered the CT of her chest, she requested a CT of her abdomen and pelvis. She says she has ongoing abdominal pain and that this is [address] of [address] abdomen and pelvis was ordered. This was unremarkable. Patient's work-up was reassuring. She is improved on reevaluation. She is appropriate for outpatient care. Follow-up with her doctor. Return for any new or worsening issues. Treatment Plan: As above Disposition: Discharge Impression: 1. Tachycardia 2. Abdominal pain This note was generated with [employer] software. It may contain incorrect words, spelling, and punctuation that were not noted in review of the chart prior to signing ED Disposition - Plan for ED Patient: Referrals: Freddy Dee MD [Primary Care Provider] -
--- NOTE | 2019-03-31 20:37 | ED.DEP ---
ED Disposition - Plan for ED Patient: Instructions: Palpitations Referrals: Freddy Dee MD [Primary Care Provider] -
[2019-03-31 20:46] VITALS: BP 140/85; PULSE 67; RESP 20; O2SAT 97
== END 2019-03-31 20:46 | disposition home or self-care (01) ==
LOC: ED 17:47
PROVIDERS: Emergency Provider Emergency Medicine; Family Provider Family Medicine; PCP Family Medicine
DX: R00.0 Tachycardia, unspecified (principal); R10.9 Unspecified abdominal pain; R79.89 Other specified abnormal findings of blood chemistry; R06.00 Dyspnea, unspecified; I47.1 Supraventricular tachycardia; I10 Essential (primary) hypertension; Z79.899 Other long term (current) drug therapy; F17.200 Nicotine dependence, unspecified, uncomplicated
CPT/HCPCS: 71045; 71275; 74177; 80048; 84443; 84484; 85025; 85379; 93005; 96360; 96361; 99284; J7030; Q9967; A4216

== ENCOUNTER 2019-04-23 13:34 | Emergency (ER) | payer MEDICAID, SELFPAY ==
[2019-04-23 13:35] VITALS: BP 149/94; PULSE 84; RESP 20; TEMP 37.3; O2SAT 97; BMI 37.6
--- NOTE | 2019-04-23 13:37 | RAD_ITS ---
STUDY: X-RAY CHEST REASON FOR EXAM: Female, 53 years old. COUGH, WHEEZING TECHNIQUE: 2 views of the chest were obtained COMPARISON: March 31, 2019 chest radiograph FINDINGS: Cardiac size is stable. Subtle developing infiltrates in the right lower lobe. No pneumothorax. No consolidation. No definite pleural effusion. IMPRESSION: Subtle developing infiltrates in right lower lobe suspected. No definite consolidative process or pneumothorax however seen. Electronically Signed: Arthur Liang, at 15:00 EST Tel , Service support , RAD/Chest PA and Lateral
[2019-04-23 16:13] VITALS: O2SAT 95
--- NOTE | 2019-04-23 16:18 | ED.DCSUM_ITS ---
- ER Visit Summary Date of Service: 04/23/19 Chief Complaint: Cough and shortness of breath History of Present Illness: The patient is a 53 F who presents with cough and shortness of breath that is been getting worse over the past 10 days. Patient states she has been having some upper respiratory congestion. Patient finished a course of doxycycline yesterday morning. Patient states that her cough and congestion has been getting worse. Patient states her cough is dry. Patient denies any sputum production. Patient denies any fevers or chills. Patient is a smoker. Physical Examination: Vital signs are stable. Patient is afebrile. Patient is in no acute distress. Oral mucosa is pink and moist. Neck is supple. Trachea is midline. There is no JVD. Heart was regular rate and rhythm. Lungs showed some rhonchi in the right base. There is good respiratory effort noted. Abdomen is soft. Bowel sounds are normal. There is no tenderness. Cranial nerves II through XII are intact. There are no focal motor or sensory deficits noted. Test Results: PA and lateral chest x-ray was obtained. There is subtle developing infiltrates in the right lower lobe. These were interpreted by the radiologist and myself. Emergency Department Course and Treatment: Patient was given a prescription for Zithromax. Patient was instructed to follow-up with her primary care physician in 5 to 7 days. Patient understood and was agreeable with the plan. All questions were answered. Disposition: Discharge home Impression: 1. Pneumonia This note was generated with [employer] dictation software. It may contain incorrect words, spelling, and punctuation that were not noted in review of the chart prior to signing ED Disposition - Plan for ED Patient: Disposition: Home or Assisted Living Diagnosis: Pneumonia Instructions: PNEUMONIA (Adult) Prescriptions: Azithromycin [Zithromax Z-Eric] 250 mg PO UD #1 box Prescription Printed Referrals: Freddy Dee MD [Primary Care Provider] - 3-5 Days
[2019-04-23 16:30] VITALS: RESP 18
== END 2019-04-23 16:31 | disposition home or self-care (01) ==
PROVIDERS: Emergency Provider Emergency Medicine; Family Provider Family Medicine; PCP Family Medicine
DX: J18.9 Pneumonia, unspecified organism (principal); E03.9 Hypothyroidism, unspecified; Z72.0 Tobacco use; Z79.899 Other long term (current) drug therapy
CPT/HCPCS: 71046; 94760; 99282

== ENCOUNTER 2019-04-25 13:39 | Emergency (ER) | payer MEDICAID, SELFPAY ==
[2019-04-25 13:40] VITALS: BP 159/97; PULSE 107; RESP 18; TEMP 36.9; O2SAT 95; BMI 37.6
[2019-04-25 14:17] VITALS: PULSE 103; RESP 18
[2019-04-25] MEDS: Ipratropium/Albuterol Sulfate 3 ML AMPUL.NEB INHALATION (14:17)
[2019-04-25] MEDS: 0.9% Normal Saline 1,000 ML 1000 ML IV (14:33)
[2019-04-25 14:41] LABS: Absolute Lymphocyte Count 2.71 X10^3/uL (0.83-4.51); Absolute Neutrophil Count 8.2 X10^3/uL (2.0-7.7); Basophil# 0.06 X10^3/uL; Basophil% 0.5 % (0-1); Eosinophil# 0.13 X10^3/uL; Eosinophils% 1.1 % (0-5); Hematocrit 44.7 % (37-47); Hemoglobin 15.1 g/dL (12.0-15.0); Lymphocyte # 2.71 X10^3/ul (4.0); Lymphocyte % 22.6 % (19-41); Mean Corp Hgb Conc 33.8 g/dL (32-36); Mean Corpuscular Hgb 32.5 pg (27.0-32.0); Mean Corpuscular Volume 96.1 fL (81-99); Mean Platelet Vol. 9.5 fl (6.2-12.0); Monocyte# 0.84 X10^3/uL; NRBC Flagged by Analyzer 0 % (0-5); Neutrophil # 8.17 X10^3/uL (2.7-7.7); Platelet Count 282 K/mm3 (150-450); RBC Distribution Width CV 12.3 % (11.6-14.6); RBC Distribution Width SD 43.3 fl (35.1-43.9); Red Blood Count 4.65 M/mm3 (4.2-5.4)
[2019-04-25 14:56] LABS: Anion Gap 5 (5-15); BUN 5 mg/dL (7-18); BUN/Creat Ratio 5.6 RATIO (10-20); Calcium,Total 9.5 mg/dL (8.5-10.1); Chloride 111 mmol/L (98-107); Creatinine, Serum 0.89 mg/dL (0.55-1.02); EST Glomerular Filtration Rate 71 mL/min (>60); Est Glom Filt Rate - Afr Amer 85 mL/min (>60); Estimated Creatinine Clearance 55.16 ml/min; Glucose 126 mg/dL (74-106); Potassium 3.7 mmol/L (3.5-5.1); Sodium Level 142 mmol/L (136-145)
--- NOTE | 2019-04-25 15:40 | RAD_ITS ---
STUDY: X-RAY CHEST REASON FOR EXAM: Female, 53 years old. Cough. TECHNIQUE: Frontal and lateral views of the chest. April 23, 2019 COMPARISON: None. FINDINGS: Stable mild hyperexpansion. There is no demonstrated pleural abnormality. Borderline cardiomegaly unchanged. Normal mediastinum and ashley. Normal visualized pulmonary arteries. Normal visualized aortic arch and descending thoracic aorta. Normal visualized thoracic spine. Normal visualized ribs, clavicles, and shoulders. There is no demonstrated abnormality of the visualized soft tissue structures of the upper abdomen. RAD/Chest PA and Lateral IMPRESSION: Stable chest with no acute superimposed finding. Electronically Signed: Nacho Lee MD at 16:20 EST , Service support ,
--- NOTE | 2019-04-25 16:35 | ED.DCSUM_ITS ---
History of Present Illness Chief Complaint: Shortness of Breath Detail of Chief Complaint: Pneumonia Informant: Patient Onset: Weeks Context: Gradual Onset Timing: Waxes and wanes Current Severity: Moderate Maximum Severity: Moderate Narrative: Patient presents with ongoing URI symptoms. She completed a course of doxycycline but worsened again last weekend. She was seen in the ER the and diagnosed with a right lower lobe developing infiltrate. She was started on Zithromax. She does have an inhaler that she uses. She states overall she feels like she is not improving. She does have some pain in her back and today developed chills. She has not noted a fever. She states her cough is dry and nonproductive. - Past Medical History (1) Premature atrial contractions Status: Chronic (2) Premature ventricular contraction Status: Chronic (3) Essential hypertension Status: Chronic (4) Paroxysmal SVT (supraventricular tachycardia) Status: Chronic Past Medical History - Allergies and Home Meds Allergies/Adverse Reactions: Allergies codeine Allergy (Verified 04/25/19 13:43) Rash hydrocodone bitartrate [From Vicodin] Allergy (Verified 04/25/19 13:43) Rash methimazole [From Tapazole] Allergy (Verified 04/25/19 13:43) Shortness of breath famotidine [From Pepcid] Adverse Reaction (Unknown, Verified 04/25/19 13:43) Unknown estradiol [From CombiPatch] Adverse Reaction (Verified 04/25/19 13:43) myalgias, lip/mouth burn, SOB, nausea, dizziness methylprednisolone sodium succinate [From Solu-Medrol] Adverse Reaction (Verified 04/25/19 13:43) Other norethindrone [From CombiPatch] Adverse Reaction (Verified 04/25/19 13:43) myalgias, lip/mouth burn, SOB, nausea, dizziness oxycodone HCl [From Percocet] Adverse Reaction (Verified 04/25/19 13:43) Nausea/Vom/Diarrhea Primary Care Physician: Freddy Dee MD [Primary Care Provider] - Prior records reviewed: Yes Surgical History: cholecystectomy, - - Ectopic , tubal ligation Smoking Status: Current every day smoker Review of Systems General: Reports: Chills. Denies: Fever Eyes: Denies: Visual changes - bilaterally ENT: Reports: - - Congestion underdiagnosed. Denies: Bilateral ear pain Cardiovascular: Denies: Chest pain Respiratory: Reports: Dyspnea, Cough. Denies: Sputum Gastrointestinal: Denies: Nausea, Vomiting Genitourinary: Denies: Dysuria Musculoskeletal: Denies: Back pain, Extremity Pain Skin: Denies: Rash Neurological: Denies: Headache Hematologic: Denies: Easy bruising Allergy: Denies: Uticaria Physical Exam Vital Signs/Narrative: Vital Signs Temp Pulse Resp BP Pulse Ox 04/25/19 14:17 103 H 18 04/25/19 13:40 98.5 F 107 H 18 159/97 H 95 Inital Vital Signs reviewed: Yes General: Well nourished, Well developed Head: Normocephalic ENT: Moist mucous membranes, TM's clear Neck: Supple Cardiovascular: Regular rate, Regular rhythm Respiratory: No distress, Decreased Air Movement Abdomen: Soft, Nontender Extremities: Nontender Skin: Normal color Neurological: Alert, Oriented x3 Psychological: Normal affect Diagnostic/Tx/Re-eval Impressions Chest X-Ray 04/25/19 15:40 IMPRESSION: Stable chest with no acute superimposed finding. Electronically Signed: Nacho Lee MD at 16:20 EST , Service support , 04/25/19 15:40 Chest PA and Lateral [RAD] Stat Laboratory Results 04/25/19 04/25/19 14:30 14:30 WBC 12.0 H RBC 4.65 Hgb 15.1 H Hct 44.7 MCV 96.1 MCH 32.5 H MCHC 33.8 RDW Std Deviation 43.3 RDW Coeff of Linette 12.3 Plt Count 282 MPV 9.5 Immature Gran % (Auto) 0.800 Neut % (Auto) 68.0 Lymph % (Auto) 22.6 [place] % (Auto) 7.0 Eos % (Auto) 1.1 Baso % (Auto) 0.5 Absolute Neuts (auto) 8.2 H Absolute Lymphs (auto) 2.71 Nucleated RBC % 0 Sodium 142 Potassium 3.7 Chloride 111 H Carbon Dioxide 26.0 Anion Gap 5 BUN 5 L Creatinine 0.89 Estim Creat Clear Calc 55.16 Est GFR (MDRD) Af Amer 85 Est GFR (MDRD) Non-Af 71 BUN/Creatinine Ratio 5.6 L Glucose 126 H Calcium 9.5 - Medical Decision Making Patient was given DuoNeb treatment here along with IV fluids. Test results are discussed with her. I did review the x-ray from the there is very subtle density in the right base. She may very well have viral pneumonia. At this point she will complete her antibiotic course. I will write her albuterol s olution for her nebulizer machine and will write her for Tessalon Perles. She is comfortable with this plan. ED Disposition - Plan for ED Patient: Disposition: Home or Assisted Living Diagnosis: Pneumonia Instructions: PNEUMONIA (Adult) Prescriptions: Benzonatate [Tessalon Perle] 200 mg PO TID PRN PRN #20 cap PRN Reason: Cough Transmission Status: Pending to [facility] [address] Albuterol Aerosols [Ventolin Aerosols] 2.5 mg INHALATION Q4H PRN #25 vial Transmission Status: Pending to [facility] Referrals: Freddy Dee MD [Primary Care Provider] - 1 Week
[2019-04-25 16:47] VITALS: BP 112/87; PULSE 72; RESP 20; O2SAT 98
== END 2019-04-25 16:48 | disposition home or self-care (01) ==
PROVIDERS: Emergency Provider Emergency Medicine; Family Provider Family Medicine; PCP Family Medicine
DX: J18.9 Pneumonia, unspecified organism (principal); F17.200 Nicotine dependence, unspecified, uncomplicated
CPT/HCPCS: 71046; 80048; 85025; 94640; 96360; 96361; 99283; J7030; A4216

== ENCOUNTER 2019-05-06 18:18 | Emergency (ER) | payer MEDICAID, SELFPAY ==
[2019-05-06 18:19] VITALS: BP 163/113; PULSE 125; RESP 16; TEMP 36.8; O2SAT 96; BMI 37.4
[2019-05-06 18:32] VITALS: BP 157/108; PULSE 105
--- NOTE | 2019-05-06 18:41 | EKG12_ITS ---
Test Reason : DIZZY Blood Pressure : / mmHG Vent. Rate : 095 BPM Atrial Rate : 095 BPM P-R Int : 140 ms QRS Dur : 092 ms QT Int : 376 ms P-R-T Axes : 059 070 035 degrees QTc Int : 472 ms Normal sinus rhythm with sinus arrhythmia Nonspecific ST abnormality Abnormal ECG Confirmed by YEN HARRIS, WILBERT ([id number]), graphic editor DAVIDSON HENDRICKS ([id number]) on 05/08/2019 10:05:40 AM Referred By: CHRIS Confirmed By:WILBERT BARLOW MD
--- NOTE | 2019-05-06 18:43 | ED.VISSUMM ---
- ER Visit Summary Date of Service: 05/06/19 Chief Complaint: Increased heart rate History of Present Illness: The patient is a 53 F who complains of a multitude of symptoms including high heart rate, sweats, cannot sleep, shakiness, shortness of breath, tongue feeling thick. The symptoms started today. She is wondering if her thyroid is not correct. She had a TSH of 5 and they increased her thyroid medication so she is wondering if she has too much thyroid medication in her system. She was treated for pneumonia 3 weeks ago. Her voice feels hoarse. No documented fevers at home. Physical Examination: Vital signs reviewed. HEENT exam unremarkable. Heart is regular rate and rhythm without murmurs. Lungs are clear to auscultation. Abdomen is soft and nontender. Extremities reveal no edema. Skin exam normal. Neurologic exam normal. Test Results: EKG is sinus rhythm with a rate of 95. No ST changes. Labs are unremarkable except for d-dimer 2.03. Urinalysis negative for infection Emergency Department Course and Treatment: The patient was given IV fluids and feels better. Since her d-dimer was high I did order a CAT scan of the chest. She states that she does not want to have a CAT scan that she has had many this year that have been negative. She tells me that her d-dimer is always high and is likely due to chronic inflammation. Her doctor is testing her for possibility of pots syndrome. She would just like to go home now that she feels better. Patient will be discharged to call her doctor for follow-up Treatment Plan: [] Disposition: Discharge Impression: Weakness This note was generated with [employer] dictation software. It may contain incorrect words, spelling, and punctuation that were not noted in review of the chart prior to signing ED Disposition - Plan for ED Patient: Referrals: Freddy Dee MD [Primary Care Provider] -
[2019-05-06] MEDS: 0.9% Normal Saline 1,000 ML 1000 ML IV (18:52)
[2019-05-06 19:03] LABS: Absolute Lymphocyte Count 4.28 X10^3/uL (0.83-4.51); Absolute Neutrophil Count 6.2 X10^3/uL (2.0-7.7); Basophil# 0.06 X10^3/uL; Basophil% 0.5 % (0-1); Eosinophil# 0.18 X10^3/uL; Eosinophils% 1.5 % (0-5); Hemoglobin 14.8 g/dL (12.0-15.0); Lymphocyte # 4.28 X10^3/ul (4.0); Lymphocyte % 36.6 % (19-41); Mean Corp Hgb Conc 33.6 g/dL (32-36); Mean Corpuscular Hgb 32.6 pg (27.0-32.0); Mean Corpuscular Volume 96.9 fL (81-99); Mean Platelet Vol. 9.7 fl (6.2-12.0); Monocyte# 0.87 X10^3/uL; Monocyte% 7.4 % (0-10); NRBC Flagged by Analyzer 0 % (0-5); Neutrophil # 6.21 X10^3/uL (2.7-7.7); Neutrophil % 53.3 % (47-70); Platelet Count 278 K/mm3 (150-450); RBC Distribution Width CV 12.1 % (11.6-14.6); RBC Distribution Width SD 43.3 fl (35.1-43.9); Red Blood Count 4.54 M/mm3 (4.2-5.4); White Blood Count 11.7 K/mm3 (4.4-11.0)
[2019-05-06 19:13] LABS: Bacteria 0 SEEN /hpf (None Seen); Color, Urine Yellow (Yellow); Glucose, Dipstick Normal (Normal); Ketone-Dipstick Negative (Negative); Leukocyte Esterase-Dipstick Negative /ul (Negative); Mucous, Urine 0 SEEN /hpf (<or=2+); Nitrite-Dipstick Negative (Negative); Occult Blood-Urine 150 /ul (Negative); Protein-Dipstick Negative (Negative); Urine Bilirubin Dipstick Negative (Negative); Urine Clarity Sl. Cloudy (Clear); Urine Urobilinogen Normal (Normal); White Blood Cells 0 SEEN /hpf (0-5)
[2019-05-06 19:18] LABS: D-Dimer Quantitative (DVT/PE) 2.03 FEU/ug/m (0.27-0.49)
[2019-05-06 19:22] LABS: Red Blood Cells-Urine 5-10 SEEN /hpf (0-5); Squamous Epithelial Cells - UA 0-5 SEEN /hpf (5-10)
[2019-05-06 20:13] LABS: Anion Gap 7 (5-15); BUN 12 mg/dL (7-18); BUN/Creat Ratio 11.7 RATIO (10-20); Calcium,Total 9.3 mg/dL (8.5-10.1); Chloride 107 mmol/L (98-107); Creatinine, Serum 1.03 mg/dL (0.55-1.02); EST Glomerular Filtration Rate 60 mL/min (>60); Est Glom Filt Rate - Afr Amer 72 mL/min (>60); Estimated Creatinine Clearance 47.66 ml/min; Glucose 160 mg/dL (74-106); Potassium 3.4 mmol/L (3.5-5.1); Sodium Level 140 mmol/L (136-145); Thyroid Stim Hormone (TSH) 2.24 uIU/mL (0.358-3.74)
--- NOTE | 2019-05-06 20:25 | ED.DEP ---
ED Disposition - Plan for ED Patient: Disposition: Home or Assisted Living Instructions: WEAKNESS, Unk Cause Referrals: Freddy Dee MD [Primary Care Provider] -
[2019-05-06 20:57] VITALS: BP 137/79; PULSE 76
--- NOTE | 2019-05-06 20:58 | ED.RN ---
pt requesting that it be noted that her HR went from appox 105 to the 120's when standing prior to receiving her IV fluids. feeling much better at discharge.
== END 2019-05-06 20:59 | disposition home or self-care (01) ==
PROVIDERS: Emergency Provider Emergency Medicine; Family Provider Family Medicine; PCP Family Medicine
DX: R53.1 Weakness (principal); R06.00 Dyspnea, unspecified; E03.9 Hypothyroidism, unspecified; F41.9 Anxiety disorder, unspecified; Z72.0 Tobacco use; Z79.899 Other long term (current) drug therapy; Z87.01 Personal history of pneumonia (recurrent)
CPT/HCPCS: 80048; 81001; 84443; 84484; 85025; 85379; 93005; 96360; 99285; J7030; A4216

== ENCOUNTER → 2019-06-27 13:32 | Outpatient (CLI) | payer MEDICAID, SELFPAY ==
[2019-06-07 09:02] VITALS: BMI 37.4
[2019-06-27 13:09] VITALS: BMI 37.4
--- NOTE | 2019-06-27 13:48 | BD_ITS ---
STUDY: DUAL ENERGY X-RAY ABSORPTIOMETRY / DXA REASON FOR EXAM: Female, 53 years old. Age of rea- 42. Pat is 199.2# and 62.5 and quot;. Patient is a smoker for 20 + yrs. now. Off and on steroid use. Uses Estrogel. Takes synthroid. Borderline diabetic. Takes 750mg calcium. Does not exercises. TECHNIQUE: Bone Mineral Density (BMD) measurements of lumbar spine and bilateral hips were obtained. COMPARISON: Comparison is made with prior examination dated September 15, 2012. FINDINGS: Lumbar Spine (L1-L4): g/cm2 (1.059) / T-score (-0.9) / Z-score (-0.2) Findings are suggestive of normal bone density with a low fracture risk. Left Femur Total: g/cm2 (1.042) / T-score (0.3) / Z-score (0.9) Left Femoral Neck: g/cm2 (0.985) / T-score (-0.4) / Z-score (0.6) Right Femur Total: g/cm2 (0.978) / T-score (-0.2) / Z-score (0.4) Right Femoral Neck: g/cm2 (0.941) / T-score (-0.7) / Z-score (0.2) The T-Scores on the most recent prior examination were: Lumbar Spine (L1-L4): There has been worsening of bone density since the previous examination. Left Femur Total: which represents a worsening of 7.8%. Right Femur Total: which represents a worsening of 2.7%. BD/Dexa Bone Density Study IMPRESSION: The patient is considered normal as outlined below according to World Magan Organization (WHO) criteria with a low fracture risk. There has been worsening of bone density since the previous examination. Reference Information: The T-score is the number of standard deviations above or below the standard which is normal for young adults at their peak bone mineral density. The World Health Organization (WHO) interprets the T-scores as follows: Above -1 Normal bone density Between -1 and -2.5 Osteopenia Equal to / or below -2.5 Osteoporosis As a practical clinical guideline, osteopenia may be graded as follows: Mild -1 through -1.5 Moderate -1.6 through -2.0 Severe -2.1 through -2.4 The Z-score is the number of standard deviations above or below age-matched controls. A Z-score of less than -1.5 would be considered abnormal. References: 1. NIH Osteoporosis and Related Bone Diseases http://www.osteo.org 2. International Society for Clinical Densitometry http://www.iscd.org 3. National Osteoporosis Foundation http://www.nof.org Electronically Signed: Júnior Bailon, at 14:12 EST , Service support ,
== END ==
PROVIDERS: PCP Family Medicine; Referring Provider Nurse Practitioner Family; Visit Provider Nurse Practitioner Family
DX: Z13.820 Encounter for screening for osteoporosis (principal); E28.39 Other primary ovarian failure
CPT/HCPCS: 77080

== ENCOUNTER 2019-08-29 07:17 | Emergency (ER) | payer MEDICAID, SELFPAY ==
[2019-06-27 13:09] VITALS: BMI 37.4
[2019-08-29 07:19] VITALS: BP 180/99; PULSE 119; RESP 16; TEMP 36.2; O2SAT 95; BMI 37.8
--- NOTE | 2019-08-29 07:38 | RAD_ITS ---
STUDY: X-RAY CHEST REASON FOR EXAM: Female, 53 years old. SOB TECHNIQUE: Single AP portable view of the chest. COMPARISON: Comparison is made with prior examination dated April 25, 2019. FINDINGS: EKG electrodes are seen. Hyperinflation. The lungs are clear. There is no demonstrated pleural abnormality. Normal size heart. Normal mediastinum and ashley. Normal visualized pulmonary arteries. Normal visualized aortic arch and descending thoracic aorta. There are degenerative changes of the visualized thoracic spine. Normal visualized ribs, clavicles, and shoulders. There is no demonstrated abnormality of the visualized soft tissue structures of the upper abdomen. RAD/Chest 1 View (Portable) IMPRESSION: Hyperinflation. The lungs are clear. Electronically Signed: Júnior Bailon, at 8:40 EDT , Service support ,
--- NOTE | 2019-08-29 07:38 | EKG12_ITS ---
Test Reason : Blood Pressure : / mmHG Vent. Rate : 108 BPM Atrial Rate : 108 BPM P-R Int : 142 ms QRS Dur : 088 ms QT Int : 362 ms P-R-T Axes : 051 068 036 degrees QTc Int : 485 ms Sinus tachycardia Nonspecific ST abnormality Abnormal ECG Confirmed by CYNTHIA CALHOUN ([id number]), television news video editor [address] ([id number]) on 08/31/2019 3:06:01 PM Referred By: JOHN Confirmed By:CYNTHIA CALHOUN
--- NOTE | 2019-08-29 07:39 | VDLE_ITS ---
Reason For Study: swelling Procedure LEFT Exam performed portable in ED. GSV is normal. The exam was abbreviated due to the COVID 19 CFV is compressible, spontaneous, phasic, protocol. competent, and demonstrates normal The exam was diagnostic. augmentation. A preliminary report was called and/or faxed FV is compressible, spontaneous, phasic, to Dr. Duff. competent and demonstrates normal augmentation. POP V is compressible, spontaneous, phasic, competent and demonstrates normal augmentation. T/P Trunk is compressible. PTV is compressible. LT PerV is compressible. Interpretation Summary There is no evidence of left lower extremity deep vein thrombosis. Left great saphenous vein appears patent and compressible segmentally. Ordering Physician: Willian Duff Performed By: Suresh Hidalgo RVT
[2019-08-29 08:01] LABS: Absolute Lymphocyte Count 2.98 X10^3/uL (0.83-4.51); Absolute Neutrophil Count 6.6 X10^3/uL (2.0-7.7); Basophil# 0.07 X10^3/uL; Basophil% 0.6 % (0-1); Eosinophil# 0.14 X10^3/uL; Eosinophils% 1.3 % (0-5); Hemoglobin 15.1 g/dL (12.0-15.0); Lymphocyte # 2.98 X10^3/ul (4.0); Lymphocyte % 27.2 % (19-41); Mean Corp Hgb Conc 33.6 g/dL (32-36); Mean Corpuscular Volume 98.3 fL (81-99); Mean Platelet Vol. 9.8 fl (6.2-12.0); Monocyte# 1.04 X10^3/uL; Monocyte% 9.5 % (0-10); NRBC Flagged by Analyzer 0 % (0-5); Neutrophil # 6.64 X10^3/uL (2.7-7.7); Neutrophil % 60.6 % (47-70); Platelet Count 279 K/mm3 (150-450); RBC Distribution Width CV 12.7 % (11.6-14.6); RBC Distribution Width SD 45.2 fl (35.1-43.9); Red Blood Count 4.58 M/mm3 (4.2-5.4)
[2019-08-29 08:02] VITALS: BP 136/84; PULSE 106; RESP 15; O2SAT 94
[2019-08-29 08:24] LABS: AST(SGOT) 26 U/L (15-37); Alanine Aminotransfer ALT/SGPT 40 U/L (13-56); Albumin, Serum 3.9 g/dL (3.2-5.0); Alkaline Phosphatase 76 U/L (45-117); Anion Gap 4 (5-15); BNP,B-Type NATRIURETIC PEPTIDE 8.7 pg/mL (0-100); BUN 9 mg/dL (7-18); BUN/Creat Ratio 10.1 RATIO (10-20); Calcium,Total 8.8 mg/dL (8.5-10.1); Chloride 111 mmol/L (98-107); Creatinine, Serum 0.89 mg/dL (0.55-1.02); EST Glomerular Filtration Rate 71 mL/min (>60); Est Glom Filt Rate - Afr Amer 85 mL/min (>60); Estimated Creatinine Clearance 55.16 ml/min; Globulin 3.9 g/dL (2.2-4.2); Glucose 110 mg/dL (74-106); Potassium 3.7 mmol/L (3.5-5.1); Protein, Total 7.8 g/dL (6.4-8.2); Sodium Level 140 mmol/L (136-145); Thyroid Stim Hormone (TSH) 3.98 uIU/mL (0.358-3.74)
--- NOTE | 2019-08-29 08:49 | ED.VISSUMM ---
- ER Visit Summary Date of Service: 08/29/19 Chief Complaint: Swelling History of Present Illness: The patient is a [address] Dee and Dr. Canseco. She reports that she has bilateral lower extremity edema that began 2 to 3 weeks ago. States that the left is worse than the right. She denies any chest pain. She does report that she is having intermittent palpitations that she describes as her heart racing. This lasts minutes at a time. Patient complains of mild shortness of breath. Is unchanged with exertion. Is increased with laying down. She denies any PND or orthopnea. She denies fever, chills, cough, or other complaints. Physical Examination: Vitals: Stable. Afebrile. General: Well-nourished and well-developed. Head: Normocephalic atraumatic. Neck: Supple, no lymphadenopathy. No JVD. Nontender. Cardiovascular: Tachycardic regular rhythm. No murmurs. Respiratory: No respiratory distress. Clear to auscultation bilaterally. Abdominal: Soft, nontender, nondistended, normal bowel sounds. No guarding, rebound, or peritoneal signs. Back: Nontender. Extremities: Nontender, trace pedal edema of her lower extremities bilaterally. This is symmetric. There is no calf tenderness. 2+ dorsalis pedis pulse bilaterally. Skin: Normal color, no rash. Neurologic: Alert and oriented ?3. Cranial nerves II through XII are intact. Normal strength and sensation. Psych: Normal affect. Test Results: EKG is sinus tach at [address] changes. Troponin is negative. B ROUNDING AND BACKING MACHINE OPERATOR is normal. LFTs are normal. Chem-7 shows a chloride of 111 and glucose of 110. CBC shows a hemoglobin of 15.1. TSH is mildly elevated at 3.98. However her free T4 is normal at 1.1. Chest x-ray is normal. Left lower extremity Doppler is negative. Emergency Department Course and Treatment: Patient is resting comfortably without complaint. Treatment Plan: Discussed the patient at this time I do not have an explanation for her swelling. She will be discharged with instructions to follow-up with her primary care physician in 3 to 5 days for another exam. Return to the emergency department for any worsening symptoms. Disposition: To home in improved and stable condition. Impression: 1. Peripheral edema. 2. Sinus tachycardia. This note was generated with [employer] dictation software. It may contain incorrect words, spelling, and punctuation that were not noted in review of the chart prior to signing ED Disposition - Plan for ED Patient: Instructions: ED Peripheral Edema, Bilateral Referrals: Freddy Dee MD [Primary Care Provider] - 3-5 Days
== END 2019-08-29 09:12 | disposition home or self-care (01) ==
LOC: ED 08:59
PROVIDERS: Emergency Provider Emergency Medicine; PCP Family Medicine
DX: R60.0 Localized edema (principal); R00.0 Tachycardia, unspecified; R11.0 Nausea; J44.9 Chronic obstructive pulmonary disease, unspecified; E03.9 Hypothyroidism, unspecified; K21.9 Gastro-esophageal reflux disease without esophagitis; Z72.0 Tobacco use; Z79.899 Other long term (current) drug therapy
CPT/HCPCS: 71045; 80053; 83880; 84439; 84443; 84484; 85025; 93005; 93971; 99284

== ENCOUNTER 2019-09-11 12:50 | Emergency (ER) | payer MEDICAID, SELFPAY ==
[2019-09-11 12:53] VITALS: PULSE 95; RESP 18; TEMP 36.7; O2SAT 96; BMI 38.9
[2019-09-11 13:08] VITALS: BP 155/81; PULSE 97; RESP 16; O2SAT 94
--- NOTE | 2019-09-11 13:34 | EKG12_ITS ---
Test Reason : PALPS Blood Pressure : / mmHG Vent. Rate : 099 BPM Atrial Rate : 099 BPM P-R Int : 140 ms QRS Dur : 084 ms QT Int : 380 ms P-R-T Axes : 064 062 028 degrees QTc Int : 487 ms Normal sinus rhythm Nonspecific ST abnormality Prolonged QT Abnormal ECG Confirmed by ARYA HARRIS, JUAN ([id number]), food expeditor BERNA DEL TORO ([id number]) on 09/12/2019 3:43:56 PM Referred By: SAMANTHA Confirmed By:JUAN KOENIG MD
--- NOTE | 2019-09-11 13:35 | ED.VIS.GEN ---
History of Present Illness Chief Complaint: Palpitations Informant: Patient Onset: Today Context: Sudden Onset Timing: Intermittent - x1 today, Lasts - 20 min Quality: racing Location: chest Current Severity: resolved Maximum Severity: Severe Worsened by: nothing in particular Relieved by: unk; spontaneously resolved Associated Symptoms: burning throughout skin. tingling left hand. foggy in head. feely crappy. Narrative: Patient states these are chronically recurring episodes over years. She has seen EP cardiology. She has had event monitors. She is waiting for a tilt table, she thinks it all started when she had her ovaries removed, she suddenly gained some weight and then started having these weird episodes of burning throughout her entire skin. Today started with that, she had some tingling in her left hand, then one point prior to arrival she suddenly had palpitations. She felt a little dizzy like she might pass out from it but she did not. They resolved in 20 minutes, but her mom who was with her was scared and already called EMS. She states that no one can figure this out, she has seen multiple specialists with [facility], no one has answers for her but they are still running test and working her up, she just turned in a 24-hour urine, and is at some point supposed to be scheduled for a tilt table test. She is wondering if she has some type of hormonal issue, she states she did have her testosterone tested and thinks that might be related. She denies any recent illness. She has had episodes frequently. She denies having any chest discomfort today. - Past Medical History (1) Essential hypertension Status: Chronic (2) Paroxysmal SVT (supraventricular tachycardia) Status: Chronic Past Medical History - Allergies and Home Meds Allergies/Adverse Reactions: Allergies codeine Allergy (Verified 09/11/19 12:52) Rash hydrocodone bitartrate [From Vicodin] Allergy (Verified 09/11/19 12:52) Rash methimazole [From Tapazole] Allergy (Verified 09/11/19 12:52) Shortness of breath famotidine [From Pepcid] Adverse Reaction (Unknown, Verified 09/11/19 12:52) Unknown estradiol [From CombiPatch] Adverse Reaction (Verified 09/11/19 12:52) myalgias, lip/mouth burn, SOB, nausea, dizziness methylprednisolone sodium succinate [From Solu-Medrol] Adverse Reaction (Verified 09/11/19 12:52) Other norethindrone [From CombiPatch] Adverse Reaction (Verified 09/11/19 12:52) myalgias, lip/mouth burn, SOB, nausea, dizziness oxycodone HCl [From Percocet] Adverse Reaction (Verified 09/11/19 12:52) Nausea/Vom/Diarrhea Primary Care Physician: Freddy Dee MD [Primary Care Provider] - 3-5 Days Surgical History: cholecystectomy, - - Ectopic , tubal ligation Smoking Status: Current every day smoker Review of Systems General: Denies: Chills, Fever, Sweats Eyes: Denies: Visual changes - bilaterally, Diplopia ENT: Denies: Rhinorrhea, Sore throat Cardiovascular: Reports: Palpitations, Heart racing. Denies: Chest pain Respiratory: Denies: Dyspnea, Cough, Dyspnea on exertion Gastrointestinal: Denies: Abdominal pain, Nausea, Vomiting, Diarrhea, Melena, Hematochezia Genitourinary: Denies: Dysuria, Hematuria, Frequency Musculoskeletal: Reports: Extremity Pain - On skin. See HPI.. Denies: Back pain Skin: Denies: Rash, Wounds Neurological: Reports: Numbness. Denies: Headache, Weakness Physical Exam Vital Signs/Narrative: Vital Signs Temp Pulse Resp BP Pulse Ox 09/11/19 13:08 97 16 155/81 H 94 09/11/19 12:53 98.0 F 95 18 96 Inital Vital Signs reviewed: Yes General: Well nourished, Well developed, No Acute Distress Head: Normocephalic, Atraumatic, - - no facial flushing Eyes: Perrl, EOMI ENT: Moist mucous membranes, No rhinorrhea Neck: Supple, Nontender, No lymphadenopathy, No JVD Cardiovascular: Regular rate, Regular rhythm, No murmurs. Negative for: Tachycardia Respiratory: No distress, CTA bilaterally, Chest nontender Abdomen: Soft, Nontender, Nondistended, Normal bowel sounds Back: Nontender, Normal Inspection. Negative for: CVA tenderness Extremities: Nontender, No edema. Negative for: Calf Tenderness Skin: Normal color, No rash, No Trauma Neurological: Alert, Oriented x3, Cranial nerves II-XII grossly intact, Normal Strength, Normal Sensation Psychological: Normal affect, Normal Mood Diagnostic/Tx/Re-eval Laboratory Results 09/11/19 09/11/19 12:55 12:55 WBC 11.0 RBC 4.77 Hgb 15.3 H Hct 46.1 MCV 96.6 MCH 32.1 H MCHC 33.2 RDW Std Deviation 44.9 H RDW Coeff of Linette 12.5 Plt Count 304 MPV 9.9 Immature Gran % (Auto) 0.700 Neut % (Auto) 56.1 Lymph % (Auto) 33.3 Fulton % (Auto) 8.1 Eos % (Auto) 1.2 Baso % (Auto) 0.6 Absolute Neuts (auto) 6.2 Absolute Lymphs (auto) 3.66 Nucleated RBC % 0 Sodium 140 Potassium 3.5 Chloride 107 Carbon Dioxide 26.0 Anion Gap 7 BUN 7 Creatinine 0.84 Estim Creat Clear Calc 58.45 Est GFR (MDRD) Af Amer 91 Est GFR (MDRD) Non-Af 75 BUN/Creatinine Ratio 8.3 L Glucose 132 H Calcium 9.2 Troponin I < 0.015 - Rhythm Strip Rhythm Strip: Sinus Rhythm Rate: 85 Ectopy: None, PAC(s) - EKG Initial EKG Interpretation: Sinus Rhythm, No Acute Injury Pattern Prior: Unchanged - Medical Decision Making Testing unremarkable. No telemetry events or further symptoms while in the emergency department. She was given a liter fluid. I feel she is stable to be discharged home given that she has had these episodes for years and has seen cardiology along with EP, she is comfortable with going home and following up since she feels better. ED Disposition - Plan for ED Patient: Disposition: Home or Assisted Living Diagnosis: Palpitations, Dysesthesia of multiple sites Instructions: ED Palpitations Referrals: Freddy Dee MD [Primary Care Provider] - 3-5 Days
[2019-09-11] MEDS: 0.9% Normal Saline 1,000 ML 999 ML IV (13:45)
[2019-09-11 13:47] LABS: Absolute Lymphocyte Count 3.66 X10^3/uL (0.83-4.51); Absolute Neutrophil Count 6.2 X10^3/uL (2.0-7.7); Basophil# 0.07 X10^3/uL; Basophil% 0.6 % (0-1); Eosinophil# 0.13 X10^3/uL; Eosinophils% 1.2 % (0-5); Hematocrit 46.1 % (37-47); Hemoglobin 15.3 g/dL (12.0-15.0); Lymphocyte # 3.66 X10^3/ul (4.0); Lymphocyte % 33.3 % (19-41); Mean Corp Hgb Conc 33.2 g/dL (32-36); Mean Corpuscular Hgb 32.1 pg (27.0-32.0); Mean Corpuscular Volume 96.6 fL (81-99); Mean Platelet Vol. 9.9 fl (6.2-12.0); Monocyte# 0.89 X10^3/uL; Monocyte% 8.1 % (0-10); NRBC Flagged by Analyzer 0 % (0-5); Neutrophil # 6.15 X10^3/uL (2.7-7.7); Neutrophil % 56.1 % (47-70); Platelet Count 304 K/mm3 (150-450); RBC Distribution Width CV 12.5 % (11.6-14.6); RBC Distribution Width SD 44.9 fl (35.1-43.9); Red Blood Count 4.77 M/mm3 (4.2-5.4)
[2019-09-11 13:58] LABS: Anion Gap 7 (5-15); BUN 7 mg/dL (7-18); BUN/Creat Ratio 8.3 RATIO (10-20); Calcium,Total 9.2 mg/dL (8.5-10.1); Chloride 107 mmol/L (98-107); Creatinine, Serum 0.84 mg/dL (0.55-1.02); EST Glomerular Filtration Rate 75 mL/min (>60); Est Glom Filt Rate - Afr Amer 91 mL/min (>60); Estimated Creatinine Clearance 58.45 ml/min; Glucose 132 mg/dL (74-106); Potassium 3.5 mmol/L (3.5-5.1); Sodium Level 140 mmol/L (136-145)
[2019-09-11 14:40] VITALS: BP 143/97; PULSE 80; RESP 16; O2SAT 97
--- OUTSIDE RECORDS SUMMARY | 2020-02-06 12:26 | XMS RPT_ITS | CCD ---
:1965 External Reference #:[id number] Author Organization [facility] Care Team Providers Name Role Phone Bryce HARRIS, Haily Unavailable David HARRIS, P Unavailable Roof PETAL SHAPER HAND, H Unavailable Bryce HARRIS, Haily Unavailable PROVIDER Unavailable Unavailable PROVIDER Unavailable Unavailable PROVIDER Unavailable Unavailable PROVIDER Unavailable Unavailable PROVIDER Unavailable Unavailable Bittenbender Unavailable Unavailable Elijah Unavailable Unavailable Antonieta BOLTON Attending Unavailable IMCA Referring Unavailable Elijah Primary Care Unavailable LATASHA BOLTON Attending Unavailable Lisa Naidu Unavailable Unavailable Delmis Unavailable Unavailable Cristo Nava Unavailable Unavailable Antonieta Rascon Unavailable Unavailable Cristo Nava Primary Care Provider Allergies Reported Allergen Reaction(s) Severity Date of Location Onset Acetaminophen / Critical, 11-10-2012 [facility] Surgical HYDROcodone Critical - Associates (77211) Acetaminophen / Vomiting Unknown, High 07-17-2011 Nickolas dueñas HYDROcodone Translations: - [facility] System [ Repository HYDROCODONE-ACETAMINOPHEN , HYDROCODONE-ACETAMINOPHEN ] Acetaminophen / [facility] (97601) Acetaminophen / oxyCODONE Vomiting Unknown, High 07-17-2011 Brittany dowling General Translations: [ - Health Syste m OXYCODONE-ACETAMINOPHEN, Rep ository OXYCODONE-ACETAMINOPHEN] Acetaminophen / oxyCODONE MP [facility] (65625) Codeine Translations: [ GI Upset, Vomiting Moderate, 11-25-2012 [facility] Surgical CODEINE, CODEINE] Moderate, - Associates Unknown, High (46219) estradiol / norethindrone Feels wired, Critical, 01-08-2017 [facility] muscles hurt, Critical - Group (47771) lip/mouth burn, feels like asthma flaring, nausea, dizziness Estradiol / Norethindrone Unknown [facility] (03107) ESTRADIOL-NORETHINDRONE Intolerance 10-26-2016 [facility] ACET Translations: [ - Health System ESTRADIOL-NORETHINDRONE Repo sitory ACET, ESTRADIOL-NORETHINDRONE ACET] famotidine Critical, 01-08-2017 [facility] (36344) Famotidine Translations: Other: See 07-07-2016 [facility] [ FAMOTIDINE (PF), Comments - Health Sy stem FAMOTIDINE (PF)] Repository Famotidine Unknown [facility] (73754) metFORMIN Translations: [ Other: See 10-28-2017 Ak maria elena General METFORMIN, METFORMIN] Comments - Health System Repository methIMAzole Hives Moderate, 11-25-2012 [facility] Surgical Moderate - Associates (18377) methIMAzole Translations: Hives 10-14-2005 [facility] mar[facility] elena [facility] [ METHIMAZOLE, - Health System METHIMAZOLE] Repository methylprednisoLONE Vomiting Critical, 01-08-2017 [facility] (38615) methylPREDNISolone Unknown [facility] (59374) METHYLPREDNISOLONE SODIUM Mental Status Unknown, High 01-22-2014 [facility] SUCC Translations: [ Change - Health System METHYLPREDNISOLONE SODIUM Re pository SUCC, METHYLPREDNISOLONE SODIUM SUCC] Nadolol wheezing, chest Moderate, 01-02-2013 [facility] Surgical tightness Moderate - Associates (27469) Medications Medication Name Sig Date Prescriber Location albuterol VENTOLIN HFA 108 (90 01-08-2017 - [facility]) MCG/ACT AERS 01-13-2017 (61543) ALBUTEROL SULFATE [id number] Noman Hernandez MD VENTOLIN HFA 108 (90 Base) 01-08-2017 - 01-13-2017 [facility] (89729) MCG/ACT AERS ALBUTEROL SULFATE [id number] Noman Hernandez MD VENTOLIN HFA 108 (90 Base) 01-08-2017 [facility] (67467) MCG/ACT AERS ALBUTEROL SULFATE [id number] Ayan Koehler PETAL SHAPER HAND VENTOLIN HFA 108 (90 Base) 01-08-2017 - 01-13-2017 [facility] (45083) MCG/ACT AERS ALBUTEROL SULFATE [id number] Noman Hernandez MD VENTOLIN HFA 108 (90 Base) 01-08-2017 [facility] (78485) MCG/ACT AERS ALBUTEROL SULFATE [id number] Ayan Domi Zakia PETAL SHAPER HAND VENTOLIN HFA 108 (90 Base) 01-08-2017 - 01-13-2017 [facility] (77550) MCG/ACT AERS ALBUTEROL SULFATE [id number] Noman Hernandez MD VENTOLIN HFA 108 (90 Base) 01-08-2017 [facility] (76034) MCG/ACT AERS ALBUTEROL SULFATE [id number] Ayan Domi Zakia PETAL SHAPER HAND VENTOLIN HFA 108 (90 Base) 01-08-2017 [facility] (26451) MCG/ACT AERS ALBUTEROL SULFATE [id number] Ayan Duron aZkia PETAL SHAPER HAND VENTOLIN HFA 108 (90 Base) 01-08-2017 [facility] (86395) MCG/ACT AERS ALBUTEROL SULFATE [id number] Ayan Duron Roof PETAL SHAPER HAND Ventolin HFA 108 (90 Base) 06-03-2016 [facility] (58446) MCG/ACT Inhalation Aerosol Solution Refills: 0 Start : 03-Jun-2016 Active 8 GM Inhaler ALPRAZolam ALPRAZolam 1 MG 11-10-2012 - [place] Oral Tablet TAKE 1 01-13-2017 [facility] are TABLET 3 TIMES (14216) DAILY NEEDED. Refills: 0 Start : 17-Sep-2015 Active Amoxicillin / amoxicillin-clavul 01-04-2020 - [facility] Clavulanate anic acid 01-14-2020 (35092) (AUGMENTIN) 875-125 mg per tablet Indications: Bacterial sinusitis Take 1 tablet by mouth twice daily for 10 days. 20 tablet 0 01/04/2020 01/14/2020 Active Comment: Take 1 tablet by mouth twice daily for 10 days. Aspirin ASPIRIN 81 MG TABS One 03-30-2012 - --2013 [facility] tablet by mouth daily (53407 ) ASPIRIN [id number] Tabitha Benedict RN ASPIRIN 81 MG TABS One tablet 03-30-2012 - 11-20-2013 [facility] by mouth daily (96954 ) ASPIRIN [id number] Blair Canseco MD bazedoxifene / DUAVEE 0.45-20 MG TABS One 11-27-2016 - Michelle Sutton Estrogens, tablet by mouth daily 01-08-2017 Bryce HARRIS [facility] Conjugated ([facility]SING HOME) CONJ (06161) ESTROGENS-BAZEDOXIFENE [id number] Michelle Wu MD DUAVEE 0.45-20 MG TABS One 11-27-2016 - [place] tablet by mouth daily 01-08-2017 [facility] CONJ (4469 1) ESTROGENS-BAZEDOXIFENE [id number] Ayan Zakia PETAL SHAPER HAND DUAVEE 0.45-20 MG TABS One 11-27-2016 Michelle Johansen [place] tablet by mouth daily Bryce HARRIS [facility] CONJ (21006) ESTROGENS-BAZEDOXIFENE [id number] Michelle Wu MD DUAVEE 0.45-20 MG TABS One 11-27-2016 - [place] tablet by mouth daily 01-08-2017 [facility] CONJ (4469 1) ESTROGENS-BAZEDOXIFENE [id number] Ayan Zakia PETAL SHAPER HAND DUAVEE 0.45-20 MG TABS One 11-27-2016 Michelle Johansen [place] tablet by mouth daily Bryce HARRIS [facility] CONJ (18406) ESTROGENS-BAZEDOXIFENE [id number] Michelle Wu MD DUAVEE 0.45-20 MG TABS One 11-27-2016 - [place] tablet by mouth daily 01-08-2017 [facility] CONJ (4469 1) ESTROGENS-BAZEDOXIFENE [id number] Ayan [facility] PETAL SHAPER HAND DUAVEE 0.45-20 MG TABS One 11-27-2016 Michelle E [place] tablet by mouth daily Bryce HARRIS [facility] CONJ (17987) ESTROGENS-BAZEDOXIFENE [id number] Michelle Wu MD DUAVEE 0.45-20 MG TABS One 11-27-2016 Michelle E [place] tablet by mouth daily Bryce HARRIS [facility] CONJ (07304) ESTROGENS-BAZEDOXIFENE [id number] Michelle Wu MD DUAVEE 0.45-20 MG TABS One 11-27-2016 - [place] tablet by mouth daily 01-08-2017 [facility] CONJ (4469 1) ESTROGENS-BAZEDOXIFENE [id number] [facility] PETAL SHAPER HAND DUAVEE 0.45-20 MG TABS One 11-27-2016 - [place] tablet by mouth daily 01-08-2017 [facility] CONJ (4469 1) ESTROGENS-BAZEDOXIFENE [id number] [facility] PETAL SHAPER HAND DUAVEE 0.45-20 MG TABS One 11-27-2016 Michelle E [place] tablet by mouth daily Bryce HARRIS [facility] CONJ (99249) ESTROGENS-BAZEDOXIFENE [id number] Michelle Wu MD DUAVEE 0.45-20 MG TABS One 11-27-2016 Michelle E [place] tablet by mouth daily Bryce HARRIS [facility] CONJ (62123) ESTROGENS-BAZEDOXIFENE [id number] Michelle Wu MD DUAVEE 0.45-20 MG TABS One 11-27-2016 Michelle E [place] tablet by mouth daily Bryce HARRIS [facility] CONJ (15662) ESTROGENS-BAZEDOXIFENE [id number] Michelle Wu MD DUAVEE 0.45-20 MG TABS One 11-27-2016 Michelle E [place] tablet by mouth daily Bryce HARRIS [facility] re CONJ (08681) ESTROGENS-BAZEDOXIFENE [id number] Michelle Wu MD Betaxolol BETAXOLOL HCL 10 MG TABS 01-08-2017 - 01-13-2017 [facility] take half a pill by mouth (4 4691) daily BETAXOLOL HCL [id number] Noman Hernandez MD BETAXOLOL HCL 10 MG 03-07-2013 - Pati Richardson [facility] Women's TABS one half (1/2) 01-08-2017 GREG[facility] (21631) tablet by mouth daily BETAXOLOL HCL [id number] Pati Richardson PA-C BETAXOLOL HCL 10 MG 03-07-2013 - [place] [facility] TABS 5mg daily 03-07-2013 Care (85332) BETAXOLOL HCL [id number] Tabitha Benedict RN Blood-Glucose Meter Blood-Glucose Meter 10-22-2017 [facility] (FREESTYLE LITE METER) (FREESTYLE LITE METER) (63301) monitoring kit monitoring kit 1 Each as needed. 1 Each 0 10/22/2017 Active Blood-Glucose Meter (FREESTYLE LITE 10-22-2017 [facility] (36009) METER) monitoring kit 1 Each as needed. 1 Each 0 10/22/2017 Active Blood-Glucose Meter (FREESTYLE LITE 10-22-2017 [facility] (42495) METER) monitoring kit 1 Each as needed. 1 Each 0 10/22/2017 Active Blood-Glucose Meter (FREESTYLE LITE 10-22-2017 [facility] (80011) METER) monitoring kit 1 Each as needed. 1 Each 0 10/22/2017 Active Blood-Glucose Meter (FREESTYLE LITE 10-22-2017 [facility] (00616) METER) monitoring kit 1 Each as needed. 1 Each 0 10/22/2017 Active Blood-Glucose Meter (FREESTYLE LITE 10-22-2017 [facility] (58625[facility]) monitoring kit 1 Each as needed. 1 Each 0 10/22/2017 Active Blood-Glucose Meter (FREESTYLE LITE 10-22-2017 [facility] (38263) METER) monitoring kit 1 Each as needed. 1 Each 0 10/22/2017 Active Blood-Glucose Meter (FREESTYLE LITE 10-22-2017 [facility] (87152) METER) monitoring kit 1 Each as needed. 1 Each 0 10/22/2017 Active Blood-Glucose Meter (FREESTYLE LITE 10-22-2017 [facility] (14722) METER) monitoring kit 1 Each as needed. 1 Each 0 10/22/2017 Active Blood-Glucose Meter (FREESTYLE LITE 10-22-2017 [facility] (22214) METER) monitoring kit 1 Each as needed. 1 Each 0 10/22/2017 Active Blood-Glucose Meter (FREESTYLE LITE 10-22-2017 [facility] (78069) METER) monitoring kit 1 Each as needed. 1 Each 0 10/22/2017 Active Blood-Glucose Meter (FREESTYLE LITE 10-22-2017 [facility] (84612) METER) monitoring kit 1 Each as needed. 1 Each 0 10/22/2017 Active Blood-Glucose Meter (FREESTYLE LITE 10-22-2017 [facility] (10225) METER) monitoring kit 1 Each as needed. 1 Each 0 10/22/2017 Active Blood-Glucose Meter (FREESTYLE LITE 10-13-2017 [facility] (49125) METER) monitoring kit 1 Each as needed. 1 Each 0 10/13/2017 Active Blood-Glucose Meter (FREESTYLE LITE 10-13-2017 [facility] (12074) METER) monitoring kit 1 Each as needed. 1 Each 0 10/13/2017 Active Blood-Glucose Meter (FREESTYLE LITE 10-13-2017 [facility] (40469) METER) monitoring kit 1 Each as needed. 1 Each 0 10/13/2017 Active Blood-Glucose Meter (FREESTYLE LITE 10-13-2017 [facility] (89692) METER) monitoring kit 1 Each as needed. 1 Each 0 10/13/2017 Active Blood-Glucose Meter (FREESTYLE LITE 10-13-2017 [facility] (52540) METER) monitoring kit 1 Each as needed. 1 Each 0 10/13/2017 Active Blood-Glucose Meter (FREESTYLE LITE 10-13-2017 [facility] (15456) METER) monitoring kit 1 Each as needed. 1 Each 0 10/13/2017 Active Blood-Glucose Meter (FREESTYLE LITE 10-13-2017 [facility] (91806) METER) monitoring kit 1 Each as needed. 1 Each 0 10/13/2017 Active Blood-Glucose Meter (FREESTYLE LITE 10-13-2017 [facility] (27730) METER) monitoring kit 1 Each as needed. 1 Each 0 10/13/2017 Active Blood-Glucose Meter (FREESTYLE LITE 10-13-2017 [facility] (03682) METER) monitoring kit 1 Each as needed. 1 Each 0 10/13/2017 Active Blood-Glucose Meter (FREESTYLE LITE 10-13-2017 [facility] (55005) METER) monitoring kit 1 Each as needed. 1 Each 0 10/13/2017 Active Blood-Glucose Meter (FREESTYLE LITE 10-13-2017 [facility] (90683) METER) monitoring kit 1 Each as needed. 1 Each 0 10/13/2017 Active Blood-Glucose Meter (FREESTYLE LITE 10-13-2017 [facility] (79201) METER) monitoring kit 1 Each as needed. 1 Each 0 10/13/2017 Active Blood-Glucose Meter (FREESTYLE LITE 10-13-2017 [facility] (21430) METER) monitoring kit 1 Each as needed. 1 Each 0 10/13/2017 Active Comment: 1 Each as needed. CPAP CPAP Indications: ANDRESSA 02-01-2020 [facility] Cristo Nava [facility] (01956) (obstructive sleep apnea) Initiate Auto PAP @ 5-20 cm of water with humidification. Mask (per patient preference) optional chin strap (if indicated) , filters, tubing, humidifier and lifetime supplies. 1 Device 0 02/01/2020 Active CPAP Indications: ANDRESSA (obstructive 02-01-2020 [facility] Venancio [facility] (67344) sleep apnea) Initiate Auto PAP @ 5-20 cm of water with humidification. Mask (per patient preference) optional chin strap (if indicated) , filters, tubing, humidifier and lifetime supplies. 1 Device 0 02/01/2020 Active CPAP Indications: ANDRESSA (obstructive 02-01-2020 Hugo taylor [facility] (37026) sleep apnea) Initiate Auto PAP @ 5-20 cm of water with humidification. Mask (per patient preference) optional chin strap (if indicated) , filters, tubing, humidifier and lifetime supplies. 1 Device 0 02/01/2020 Active Comment: Initiate Auto PAP @ 5-20 cm of water with humidification. Mask (per patient preference) optional chin st rap (if indicated) , filters, tubing, humidifier and lifetime supplies. dilTIAZem CARDIZEM CD 120 MG 01-02-2013 - [facility] Women's [id number] One tablet 03-30-2013 RN Care (4 4691) by mouth daily DILTIAZEM HCL COATED BEADS [id number] Blair Canseco MD CARDIZEM CD 120 MG 01-02-2013 [facility] [id number] One tablet Care (64017 ) by mouth daily DILTIAZEM HCL COATED BEADS 13509900104 Blair Canseco MD CARDIZEM CD 120 MG 01-02-2013 - [facility] omen's [id number] One tablet 03-30-2013 Care (35614 ) by mouth daily DILTIAZEM HCL COATED BEADS [id number] Tabitha Benedict RN CARDIZEM CD 120 MG 01-02-2013 - [facility] omen's [id number] One tablet 03-30-2013 Care (15895 ) by mouth daily DILTIAZEM HCL COATED BEADS 29722517983 Tabitha Benedict RN CARDIZEM CD 120 MG 01-02-2013 [place] [facility] [id number] One tablet Care (09211 ) by mouth daily DILTIAZEM HCL COATED BEADS [id number] Blair ROJASM CD 120 MG 01-02-2013 - [place] [facility] [id number] One tablet 03-30-2013 Care (59803 ) by mouth daily DILTIAZEM HCL COATED BEADS 34368374721 Tabitha Benedict RN CARDIZEM CD 120 MG 01-02-2013 [place] [facility] [id number] One tablet Care (13050 ) by mouth daily DILTIAZEM HCL COATED BEADS [id number] Blair Canseco MD CARDIZEM CD 120 MG 01-02-2013 [place] [facility] [id number] One tablet Care (11456 ) by mouth daily DILTIAZEM HCL COATED BEADS [id number] Blair Canseco MD CARDIZEM CD 120 MG 01-02-2013 - [place] W [facility] [id number] One tablet 03-30-2013 Care (49168 ) by mouth daily DILTIAZEM HCL COATED BEADS 04465009042 Tabitha Benedict RN CARDIZEM CD 120 MG 01-02-2013 [place] [facility] [id number] One tablet Care (33560 ) by mouth daily DILTIAZEM HCL COATED BEADS 17847032201 Blair Canseco MD CARDIZEM CD 120 MG 01-02-2013 - [place] [facility] [id number] One tablet 03-30-2013 Care (16432 ) by mouth daily DILTIAZEM HCL COATED BEADS 42076504281 Tabitha Benedict RN CARDIZEM CD 120 MG 01-02-2013 - [place] W [facility] [id number] One tablet 03-30-2013 Care (15416 ) by mouth daily DILTIAZEM HCL COATED BEADS 32405468797 Tabitha Benedict RN CARDIZEM CD 120 MG 01-02-2013 [place] [facility] [id number] One tablet Care (63965 ) by mouth daily DILTIAZEM HCL COATED BEADS 08013588114 Blair Canseco MD CARDIZEM CD 120 MG 01-02-2013 - [place] [facility] omen's [id number] One tablet 03-30-2013 Care (54372 ) by mouth daily DILTIAZEM HCL COATED BEADS 10368174224 Tabitha Benedict RN CARDIZEM CD 120 MG 01-02-2013 [place] [facility] [place] Women[facility] [id number] One tablet Care (28174 ) by mouth daily DILTIAZEM HCL COATED BEADS 96758561538 Blair Canseco MD CARDIZEM CD 120 MG 01-02-2013 - [facility] omen's [id number] One tablet 03-30-2013 Care (38787 ) by mouth daily DILTIAZEM HCL COATED BEADS 66702273318 HONORIO FordeM CD 120 MG 01-02-2013 [place] Women[facility] [id number] One tablet Care (40337 ) by mouth daily DILTIAZEM HCL COATED BEADS 29194000677 Blair Canseco MD Estradiol CLIMARA 0.0375 MG/24HR PTWK 11-16-2016 [facility] Apply 1 patch as directed once (20716) each week ESTRADIOL [id number] Ayan Koehler NP ESTRADIOL 0.025 MG/24HR 11-16-2016 Michelle Wu MD [place] [facility] PTWK take as directed (24043) ESTRADIOL [id number] Michelle Wu MD CLIMARA 0.0375 MG/24HR 11-16-2016 [place] [facility] PTWK Apply 1 patch as (75968) directed once each week ESTRADIOL [id number] Ayan Koehler NP CLIMARA 0.0375 MG/24HR 11-16-2016 [place] [facility] PTWK Apply 1 patch as (98604) directed once each week ESTRADIOL [id number] Ayan Duron Zakia PETAL SHAPER HAND CLIMARA 0.0375 MG/24HR 11-16-2016 [facility] [facility] PTWK Apply 1 patch as (13722) directed once each week ESTRADIOL [id number] Ayan Duron Roof PETAL SHAPER HAND CLIMARA 0.0375 MG/24HR 11-16-2016 [place] [facility] PTWK Apply 1 patch as (66924) directed once each week ESTRADIOL [id number] Ayan Duron Roof PETAL SHAPER HAND CLIMARA 0.0375 MG/24HR 11-16-2016 [facility] PTWK Apply 1 patch as (80837) directed once each week ESTRADIOL [id number] Ayan Duron Zakia PETAL SHAPER HAND famotidine PEPCID 20 MG TABS One 01-08-2017 - [facility] tablet by mouth daily 01-13-2017 Group (18945) FAMOTIDINE [id number] Ayan Zakia PETAL SHAPER HAND levothyroxine SYNTHROID 137 mcg 12-11-2019 Antonieta Berkowitz on tablet Indications: (Pa-C) [place] [facility] Postablative (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 30 tablet 5 06/27/2019 12/11/2019 Discontinued SYNTHROID 137 MCG TABS 11-16-2016 Lizabeth King [place] [facility] Take one tablet on Wednesday Care ( 89929) LEVOTHYROXINE SODIUM [id number] Michelle Wu MD SYNTHROID 137 MCG TABS 11-16-2016 Lizabeth King [place] Women[facility] Take one tablet on Wednesday Care ( 73568) LEVOTHYROXINE SODIUM [id number] Michelle Wu MD SYNTHROID 137 MCG TABS 11-16-2016 Lizabeth [place] Women[facility] Take one tablet on Hernandez Care ( 10394) LEVOTHYROXINE SODIUM [id number] Michelle Wu MD SYNTHROID 137 MCG TABS 11-16-2016 Lizabeth[place]alia [facility] [place] Women[facility] Take one tablet on Hernandez Care ( 78241) LEVOTHYROXINE SODIUM [id number] Michelle Wu MD SYNTHROID 137 MCG TABS 11-16-2016 [facility] [place] Women[facility] Take one tablet on Hernandez Care ( 01043) LEVOTHYROXINE SODIUM [id number] Michelle Wu MD SYNTHROID 137 MCG TABS 11-16-2016 [facility] [place] Women[facility] Take one tablet on Hernandez Care ( 07306) LEVOTHYROXINE SODIUM [id number] Michelle Wu MD SYNTHROID 137 MCG TABS 11-16-2016 [facility] [place] Women[facility] Take one tablet on Hernandez Care ( 80840) LEVOTHYROXINE SODIUM [id number] Michelle Wu MD SYNTHROID 137 MCG TABS 11-16-2016 [place] Women[facility] Take one tablet on [facility] Care ( 61990) LEVOTHYROXINE SODIUM [id number] Michelle Wu MD SYNTHROID 137 MCG TABS 04-28-2016 [facility] [place] Women[facility] Take one tablet on Hernandez Care ( 20175) LEVOTHYROXINE SODIUM 46820021280 Michelle Wu MD Levothyroxine Sodium 125 05-25-2013 [place] [facility] MCG Oral Tablet Pt takes Care (4 4691) 1 tablet Wednesday through Wednesday. Refills: 0 Start : 22-Oct-2016 Active SYNTHROID 125 MCG TABS 05-25-2013 [facility] [facility] One tablet by mouth daily Care ( 74606) LEVOTHYROXINE SODIUM [id number] RUKHSANA BakerC SYNTHROID 125 MCG TABS 05-25-2013 [place] [facility] One tablet by mouth daily Care ( 69596) LEVOTHYROXINE SODIUM [id number] Pati Richardson PA-C SYNTHROID 125 MCG TABS 05-25-2013 [place] [facility] One tablet by mouth daily Care ( 07925) LEVOTHYROXINE SODIUM [id number] Ptai Richardson PA-C SYNTHROID 125 MCG TABS 05-25-2013 [place] [facility] One tablet by mouth daily Care ( 84742) LEVOTHYROXINE SODIUM [id number] Pati Richardson PA-C SYNTHROID 125 MCG TABS 05-25-2013 [place] [facility] One tablet by mouth daily Care ( 28035) LEVOTHYROXINE SODIUM [id number] Pati Richardson PA-C SYNTHROID 125 MCG TABS 05-25-2013 [place] [facility] One tablet by mouth daily Care ( 30888) LEVOTHYROXINE SODIUM [id number] Pati Richardson PA-C SYNTHROID 125 MCG TABS 05-25-2013 [place] [facility] One tablet by mouth daily Care ( 46816) LEVOTHYROXINE SODIUM [id number] Pati Richardson PA-C SYNTHROID 125 MCG TABS 05-25-2013 [place] [facility] One tablet by mouth daily Care ( 42967) LEVOTHYROXINE SODIUM [id number] Pati Richardson PA-C SYNTHROID 175 MCG TABS 01-11-2013 [place] Women[facility] days a week Care (446 91) LEVOTHYROXINE SODIUM [id number] Pati Richardson PA-C SYNTHROID 175 MCG TABS 5 01-11-2013 [place] Women[facility] days a week Care (446 91) LEVOTHYROXINE SODIUM [id number] Pati Richardson PA-C SYNTHROID 175 MCG TABS 5 01-11-2013 [place] Women[facility] days a week Care (446 91) LEVOTHYROXINE SODIUM [id number] Pati Richardson PA-C SYNTHROID 175 MCG TABS 5 01-11-2013 [place] Women[facility] days a week Care (446 91) LEVOTHYROXINE SODIUM [id number] Pati Richardson PA-C SYNTHROID 175 MCG TABS 5 01-11-2013 [place] Women[facility] days a week Care (446 91) LEVOTHYROXINE SODIUM [id number] Pati Richardson PA-C SYNTHROID 175 MCG TABS 5 01-11-2013 [place] Women[facility] days a week Care (446 91) LEVOTHYROXINE SODIUM [id number] Pati Richardson PA-C SYNTHROID 175 MCG TABS 5 01-11-2013 [place] Women[facility] days a week Care (446 91) LEVOTHYROXINE SODIUM [id number] Pati Richardson PA-C SYNTHROID 175 MCG TABS 5 01-11-2013 [place] Women[facility] days a week Care (446 91) LEVOTHYROXINE SODIUM [id number] Pati Richardson PA-C LEVOTHYROXINE SODIUM 150 11-10-2012 - [place] [facility] MCG TABS One tablet by 11-25-2012 Care (446 91) mouth on Mondays and Fridays LEVOTHYROXINE SODIUM [id number] Stephanie Torres RN SYNTHROID 175 MCG TABS 5 11-10-2012 [place] [facility] days a week Care (446 91) LEVOTHYROXINE SODIUM [id number] Pati Richardson PA-C SYNTHROID 175 MCG TABS 11-10-2012 [facility] [facility] One tablet by mouth daily Care ( 24874) LEVOTHYROXINE SODIUM [id number] Stephanie Torres RN SYNTHROID 175 MCG TABS 11-10-2012 [facility] One tablet by mouth daily Care ( 84576) LEVOTHYROXINE SODIUM [id number] Stephanie Torres RN SYNTHROID 175 MCG TABS 11-10-2012 [facility] [facility] One tablet by mouth daily Care ( 60568) LEVOTHYROXINE SODIUM [id number] Stephanie Torres RN SYNTHROID 175 MCG TABS 11-10-2012 [place] [facility] One tablet by mouth daily Care ( 21790) LEVOTHYROXINE SODIUM [id number] Stephanie Torres RN SYNTHROID 175 MCG TABS 11-10-2012 [place] [facility] One tablet by mouth daily Care ( 53994) LEVOTHYROXINE SODIUM [id number] Stephanie Torres RN SYNTHROID 175 MCG TABS 11-10-2012 [place] [facility] One tablet by mouth daily Care ( 90728) LEVOTHYROXINE SODIUM [id number] Stephanie Torres RN SYNTHROID 175 MCG TABS 11-10-2012 [facility] tablet by mouth daily Care ( 41840) LEVOTHYROXINE SODIUM [id number] Stephanie Torres RN SYNTHROID 175 MCG TABS 11-10-2012 [facility] tablet by mouth daily Care ( 31781) LEVOTHYROXINE SODIUM [id number] Stephanie Torres RN Comment: Take by mouth 8 tabs daily / weekly Take 1 tablet by mouth once daily. Meclizine MECLIZINE HCL 25 MG 11-10-2012 - [place] [facility] One tablet by 11-25-2012 Care (448 46) mouth three times daily As needed MECLIZINE HCL [id number] Blair Canseco MD Nadolol NADOLOL 20 MG TABS One 12-08-2012 - Stephanie [place] [facility] tablet by mouth daily 01-02-2013 RN Care ( 17777) NADOLOL [id number] Blair Canseco MD Nitroglycerin NITROGLYCERIN 0.4 03-30-2013 [facility] Surgi satnam MG/HR PT24 1 tablet Associat es (09298) under tongue every 5 min up to 3 X NITROGLYCERIN [id number] Tabitha Benedict, HONORIO Omeprazole OMEPRAZOLE 40 MG CPDR 11-10-2012 - [facility] tablet by mouth 11-25-2012 Care (44 691) twice daily OMEPRAZOLE [id number] Blair Canseco MD PARoxetine PAXIL 10 MG TABS One 01-08-2017 - [facility] tablet by mouth daily 01-13-2017 (18713 ) PAROXETINE HCL [id number] Ayan Koehler NP PAXIL 10 MG TABS One tablet by 01-08-2017 - 01-13-2017 [facility] (81921) mouth daily PAROXETINE HCL [id number] Ayan Koehler NP RA Natural Magnesium RA Natural Magnesium 05-27-2017 [facility] 250 MG Oral Tablet 250 MG Oral Tablet [facility] Refills: 0 Start : (47990) 27-May-2017 Active Spironolactone SPIRONOLACTONE 25 MG 11-10-2012 - [place] [facility] One tablet by 11-25-2012 Care (446 91) mouth daily SPIRONOLACTONE [id number] Blair Canseco MD Problems Active Problems Category Problem Name Status Date Location Anxiety disorders Anxiety Active 07-10-2013 [facility] - [facility] (48425) Attention-deficit Attention deficit Active 11-08-2014 [facility]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, - (12564) behavior disorders combined type Cardiac dysrhythmias Palpitations Active 11-10-2012 [facility] Women's [facility] (71926) Chronic obstructive Simple chronic bronchitis Active 12-02-19 18 [facility] pulmonary disease and - (87958 ) bronchiectasis Complications of Postprocedural Active 04-06-2006 [facility] procedures or hypothyroidism - [facility] medical care (05622) Conditions associated Dizziness and giddiness Active 10-13-19 18 [facility] with dizziness or - System (00 000) vertigo Esophageal disorders Gastroesophageal reflux Active 7 [facility] Surgical disease - Associates (047 91) Essential hypertension Hypertensive disorder Active 3 [facility] Surgical - Associates (446 91) Heart valve disorders Mitral valve prolapse Active 02-23-2018 [facility] - (33563) Malaise and fatigue Fatigue Active 11-10-2012 [facility] Surg ical - Associates (446 91) Menopausal disorders Menopausal and female Active 12-13-2015 [place] climacteric states - Women[facility] C are (59403) Mood disorders Recurrent major Active 07-09-2015 [facility] depression in partial - (41379 ) remission Nonspecific chest pain Chest pain Active 11-25-2012 [facility] S urgical - Associates (446 91) Nutritional deficiencies Decreased vitamin D Active 4 [facility] (79328) Other connective tissue Swelling of bilateral Active [facility] disease lower limbs (65527) Other gastrointestinal Irritable bowel syndrome Active 2017 [facility] disorders with diarrhea - (76317) Other hematologic Increased hemoglobin Active [facility] conditions (03649) Other lower respiratory Hypoxia Active [facility] disease [facility] (01150) Other nervous system Burning sensation of skin Active 018 [facility] disorders - (78537) Other non-traumatic Multiple joint pain Active [facility] (85410) Other nutritional; Body mass index (BMI) Active 08-22-2014 [facility] Surgical endocrine; and metabolic 32.0-32.9, adult - Associates (87169) disorders Other nutritional; Body mass index (BMI) Active 11-20-2013 [place] endocrine; and metabolic 37.0-37.9, adult - - [facility] disorders 09-28-2014 (82350) - Other nutritional; Body mass index 30+ - Active [facility] endocrine; and metabolic obesity [place] [facility] disorders (87213) Other screening for Electrocardiogram Active 11-25-2012 [facility] Surgical suspected conditions abnormal - [facility] (73626) (not mental disorders or infectious disease) Other skin disorders Eruption Active [facility] (91236) Other upper respiratory Bacterial sinusitis Active [facility] infections (74959) Residual codes; Obstructive sleep apnea Active 01-24-2020 [facility] unclassified syndrome - (56201) Residual codes; Menopause present Active 11-16-2016 [facility] Ramila gical unclassified - Associates (447 91) Screening and history of Tobacco use and exposure Active [facility] mental health and - finding (46081) substance abuse codes Substance-related Tobacco dependence Active 11-10-2012 [facility] Surgical disorders syndrome - Associates (44 91) Systemic lupus Systemic lupus Active 02-14-2018 [facility] erythematosus and erythematosus - [facility] connective tissue (18109) disorders Thyroid disorders Hyperthyroidism Active 01-11-2013 [facility] Ramila gical - Associates (44 91) Unclassified Patient encounter status Active 06-20-2018 [facility] - (98883) Unclassified Cancer cervix screening Active 06-20-2018 [facility] status - (10145) Unclassified Screening for malignant Active 01-13-2017 [facility] Surgical neoplasm of colon - Associates (34161) Unclassified Procedure carried out on Active 12-14-2016 [place] [facility] - [facility] (55780) Unclassified Gynecologic examination Active 12-14-2016 [place] [facility] (35986) Unclassified Screening for malignant Active 12-14-2016 [place] neoplasm of cervix - Women[facility] C are (62013) Unclassified Treatment not available Active [facility] (27138) Past or Other Problems Category Problem Name Status Date Location Abdominal pain Acute pain in female Completed [facility]-27-2016 [facility] (77456) Diabetes mellitus Impaired glucose Completed 09-06-2014 - [facility] without complication tolerance (37571) Diseases of mouth; Sore mouth Completed 02-16-2018 - [facility] excluding dental (47010) Immunizations and Encounter for Completed 12-14-2016 - [facility] Women's screening for screening for human Care (4 1448) infectious disease papillomavirus (HPV) Other and unspecified 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 (00846 ) Other circulatory Elevated Completed 09-06-2014 - [facility] disease blood-pressure reading (3106 5) without diagnosis of hypertension Other circulatory H/O: heart disorder Completed 11-10-2012 - [facility] Surgical disease Associates (413 91) Other lower Dyspnea Completed 11-10-2012 - [facility] Surgical respiratory disease Associat es (86312) Residual codes; Difficulty sleeping Completed 02-16-2018 - [facility] unclassified (66103) Residual codes; Edema Completed 11-10-2012 - [facility] Surgical unclassified Associates (851 80) Residual codes; Family history of Completed [facility] Ramila gical unclassified ischemic heart disease Assoc iates (84481) and other diseases of the circulatory system NEGATED: Highlighted Disease Completed [facility] has not Group[facility] occurred!Residual (52203) codes; unclassified Residual codes; FH: Hypertension Completed [facility] Surg ical unclassified Associates (538 92) Unclassified Drug therapy finding Completed [facility] (10942) Unclassified History of clinical Completed [facility] finding in subject Group-[facility] re[facility] (83780) Results Result Name Value Range Unit Interpretation Flag Date Location progress on 2020-01 PROGRESS HNO ID: [id number] Normal 02-05-2020 [facility] Author: Marlin Mohamud [place] ([id number]) Service: ? Author Type: Nurse Practitioner Type: Progress Notes Filed: 02/05/2020 5:04 PM Note Text: This is an Express Care eVisit note for Jazlyn Garzon eVisit/Questionnaire reviewed The chief complaint for the visit - Patient presents with: Eye Problem Recommendations/Treatment plan - See My Chart Message to mela [facility] Total time spent: < 5 minutes. Marlin Mohamud APRN.PULLEY MAN PROGRESS HNO ID: [id number] Normal 02-05-2020 [facility] Author: Richa Rubin [place] ([id number]) Service: ? Author Type: Physician Type: Progress Notes Filed: 02/05/2020 4:29 PM Note Text: [facility]AL CARDIOLOGY Cardiology ([facility] ([facility] [address] [facility] [id number] OUTPATIENT VISIT DATE 02/04/2020 PRIMARY CARE PHYSICIAN: Hugo Nava MD [address] [place] [address] REFERRING PHYSICIAN: Hugo Nava MD [address] [facility] [id number] CHIEF COMPLAINT: Inappropriate sinus tachycardia and chest p ain HISTORY OF PRESENT ILLNESS: Ms. Garzon is a 54 year old woman who has had a long-standing history of labile tachycardia. He tells me all her symptoms started aft er a dose part of hemorrhage when she was 19 years old. After that chetna e she started developing increased heart rates. She describes a feeling of palpitations and racing heart that had occur intermittently. Is not neces sarily associated with anxiety. Feels sicker heart rate increases a nd then she becomes anxious. She's undergone multiple Holter monitors st ress test and echocardiogram. She's been evaluated over many years. I revi ewed most of her notes were available in the system. She's also been eval uated outside facilities. She describes a feeling of squeezing like her mu scles are tight all over her body which happens intermittently. It is not know so we associated with exertion. When she has a feelings she's t esters self by running up her stairs. She gets out of breath but has no worsening feelings of chest tightness. There seemed to be no exacerbat ing relieving factors when she has increased heart rate. However, she does note that her heart rates are better and she feels better when she's o n hormone replacement therapy. However, she has side effects secondary to hormone replacement therapy. She has not had symptoms consistent wit h CHF including PND, orthopnea, or lower extremity edema. Risk factors for coronary artery disease Family history: Patient's father had his first [place] at age 50. He had stents at age 60 and at age 64 from a myocardial infarc tion. Ongoing smoking of one pack per day for 22 years Obesity Post menopausal PAST MEDICAL HISTORY Diagnosis Date - Abdominal pain, chronic, right upper quadrant - Asthma As a baby, then I outgrew it. - Cystocele, midline 05/13/2009 - Delayed emergence from anesthesia 09/27/2014 - Depression - Excessive or frequent menstruation Heavy periods - HSDD 10/21/2011 - Hypothyroidism should be on FRANCESCO synthroid. - Irregular menstrual cycle Irregular periods - menopause age 43 2009 in 2013 FSH 47 - Moderate dysplasia of cervix 2001 - Parent-child conflict 03/07/2013 - PMH - PAST MEDICAL HISTORY OF thyroid ablation/hypothyroid - Postmenopausal HRT (hormone replacement therapy) 12/13/2015 in 2014 took femHRT cried 11/2015 offer climara/prometrium - Rectocele 05/13/2009 - SVT (supraventricular tachycardia) (HCC) - Syncope 05/14/2013 -Reported that she had one episode of syncope at the OSH. -H ad the episode when she stood up. -No urinary incontinence or jerki ng movements. -Never had syncope episode before. -Last Echo stress test fo r her chest pain was in 2011 (normal) Plan: -Repeat the Echo: normal - T he left ventricle is normal in size. Left ventricular systolic funct ion is normal. EF = 63 ? 5% (2D biplane) - The right ventricle is normal in size. Right ventricular systolic function is normal. - There are no sign ificant valvular abnormalities. - Prior echocardiogram performed on 11/10/11 (stress echo). No significant change. - Tele - Tobacco use - Weight gain PAST SURGICAL HISTORY Procedure Laterality Date - CERVIX UTERI CONIZA LP ELCTRO EXCI 2001 LEEP-Cervix - COLONOSCOPY 04/2017 says nl - EGD W/O OR W/BRUSH/WASH 01/22/2014,2009 EGD - LAPAROSCOPIC CHOLEYCYSTECTOMY 05/19/2011 - LIGATE FALLOPIAN TUBE 2003 Tubal ligation - PAST SURGICAL HISTORY OF 1998 tubal - PAST SURGICAL HISTORY OF 2001 thyroid ablation - REMOVAL OF OVARY(S) 09/2014 laparoscopic left, CW, umbilical/upper abdominal adhesions s een benign SOCIAL HISTORY Social History Tobacco Use - Smoking status: Current Every Day Smoker Packs/day: 0.50 Types: Cigarettes Start date: 1985 - Smokeless tobacco: Never Used - Tobacco comment: Has quit intermittently, And I'm working on it now. 1st AM cigarette 10-15 minutes after awake. Most desired is that one, or last of day before bed. Prior 8 month quits, resumed after p regnancies completed. TO Substance Use Topics - Alcohol use: No Frequency: Never Drinks per session: Patient refused Binge frequency: Never - Drug use: No FAMILY HISTORY Problem Relation Age of Onset - Diabetes Mother Type 2 stroke - Colon Cancer Father age 64 [place] - Diabetes Father Type 2 - Hypertension Father - Coronary Artery Disease Father Hx of [place] - Thyroid Sister hx of parathyroid disease/ hx of fibroids - other (healthy) Brother - other (healthy) Brother - Allergies Daughter - other (healthy) Daughter - other (healthy) Son - other (healthy) Son - other (healthy) Son - other (healthy) Son - Colon Cancer Paternal Aunt x5 - Colon Cancer Paternal Uncle x8 ALLERGIES: ALLERGIES Allergen Reactions - Codeine GI Upset, Vomiting - Percocet [Oxycodone* Vomiting - Solumedrol [Methylp* Mental Status Change Made her rageful - Vicodin [Hydrocodon* Vomiting - Combipatch [Estradi* Intolerance feels wired, muscles hurt, lips/mouth burn, feels like asthm a flaring, nausea, dizziness. - Metformin Other: See Comments Myalgias. - Pepcid [Famotidine * Other: See Comments Dry eyes, mouth, rash, itching, anxiety - Tapazole [Methimazo* Hives MEDICATIONS: CPAP Initiate Auto PAP @ 5-20 cm of water with humidificatio n. Mask (per patient preference) optional chin strap (if indicated) , leroy ters, tubing, humidifier and lifetime supplies. SYNTHROID 137 mcg tablet Take by mouth 8 tabs daily / weekly lancets (FREESTYLE LANCETS) 28 gauge misc USE FOUR TIMES [place] LY DIRECTED blood sugar diagnostic (FREESTYLE TEST) test strip TEST four times a day Blood-Glucose Meter (FREESTYLE LITE METER) monitoring kit 1 Each as needed. Blood-Glucose Meter (FREESTYLE LITE METER) monitoring kit 1 Each as needed. REVIEW OF SYSTEMS: Review of Systems Constitutional: Positive for malaise/fatigue. Negative for c hills, fever and weight loss. HENT: Negative for hearing loss and sore throat. Eyes: Negative for blurred vision and double vision. Respiratory: Positive for shortness of breath. Negative for cough, hemoptysis, sputum production and wheezing. Cardiovascular: Positive for chest pain, palpitations and le g swelling. Negative for orthopnea, claudication and PND. Gastrointestinal: Positive for heartburn. Negative for abdom inal pain, blood in stool, constipation, diarrhea, melena, nausea and v omiting. Genitourinary: Negative for dysuria, frequency, hematuria an d urgency. Musculoskeletal: Negative. Skin: Negative. Neurological: Negative for dizziness, seizures, loss of cons ciousness, weakness and headaches. Endo/Heme/Allergies: Negative for environmental allergies. D oes not bruise/bleed easily. Psychiatric/Behavioral: Negative for depression. PHYSICAL EXAMINATION: BP 142/84 Pulse 100 Resp 16 Wt 91.6 kg (202 lb) LMP 03/10/2010 BMI 36.95 kg/m? Physical Exam Constitutional: She is oriented to person, place, and time a nd well-developed, well-nourished, and in no distress. HENT: Head: Normocephalic and atraumatic. Eyes: Conjunctivae and EOM are normal. Right eye exhibits no discharge. Left eye exhibits no discharge. No scleral icterus. Neck: Normal range of motion. Neck supple. No JVD present. N o thyromegaly present. Cardiovascular: Normal rate, regular rhythm, S1 normal, S2 n ormal, intact distal pulses and normal pulses. Exam reveals no gallop and no distant heart sounds. No murmur heard. Pulmonary/Chest: Effort normal and breath sounds normal. She has no wheezes. She has no rales. Abdominal: Soft. Normal appearance, normal aorta and bowel s ounds are normal. She exhibits no distension. There is no abdominal te nderness. Musculoskeletal: Normal range of motion. General: No tenderness or edema. Lymphadenopathy: She has no cervical adenopathy. Neurological: She is alert and oriented to person, place, an d time. Skin: Skin is warm and dry. No rash noted. She is not diapho retic. No erythema. Psychiatric: Affect normal. Nursing note and vitals reviewed. CARDIOVASCULAR MEDICINE TESTING: Stress Echocardiogram 11/09/18: CONCLUSIONS: - Exam indication: Dizziness - The exercise stress echo was negative for ischemia at 98 % of MPHR (4.6 METS). - The left ventricle is normal in size.?Left ventricular sys tolic function is normal. EF = 69 ? 5% (2D biplane) Normal left ventricular di astolic function. - The right ventricle is normal in size. Right ventricular s ystolic function is normal. - Exam was compared with the prior OUTSIDE echocardiographic exam performed on 02/15/18. Event monitor 10/20/2018 11 days Patient had a min HR of 53 bpm, max HR of 161 bpm, and avg H R of 90 bpm. Predominant underlying rhythm was Sinus Rhythm. Isolate d SVEs were rare (<1.0%), SVE Couplets were rare (<1.0%), and SVE T riplets were rare (<1.0%). Isolated VEs were rare (<1.0%), and no VE Coup lets or VE Triplets were present. ? Patient triggered events / symptom notations correlated with sinus, sinus tachycardia, infrequent SVEs IMPRESSION: Ms. Garzon is a 54 year old woman with a history of palpitati ons and sinus tachycardia of unclear etiology. I reviewed all her office n otes and multiple tests that have been performed over the years. Had a recent admission to [facility] emergency room on that hospita l admission, she describes severe chest pressure and palpitations. A CT s can was negative for pulmonary embolus and cardiac enzymes are compl etely negative. Is highly unlikely that she has a cardiac cause fo r her symptoms. I suspect her tachycardia is likely secondary to a nother primary problem. I discussed this with her in detail. PLAN AND RECOMMENDATIONS: SVT (supraventricular tachycardia) (HCC) - ICD9: 427.89, ICD 10: I47.1 Sinus tachycardia of unclear etiology and likely secondary t o another primary cause. Less likely postural orthostatic tachycardic syndrome, or primary arrhythmia such as AVRT or AVNRT. I'm reluctant to s tart the patient on beta lelia therapy given that L believe that th is is a primary cardiac cause for her symptoms. In addition, I discu ssed the side effects of beta lelia therapy with her in detail. She's co ncerned about the possible fatigue. 4. Tobacco use - ICD9: 305.1, ICD10: Z72.0 - Cessation encouraged. - Physiologic and physical aspects of tobacco addiction as w ell as strategies for quitting were discussed. - Counseling was given focusing on the harmful effects of th is addiction especially given the patient's medical condition(s) which wi ll be worsened because of the chemicals in tobacco. 5. Other chest pain - ICD9: 786.59, ICD10: R07.89 - Atypical chest pain without evidence of acute coronary syn drome or significant ischemia based on multiple risks ratification at a bend completed over the years. Highly unlikely that she would hav e intense symptoms with negative cardiac workup by multiple emergency room visits however, based on her risk factors which include a very stro ng family history of premature coronary disease and ongoing smoking ma y need to consider invasive testing. I discussed this with the patient in detail. She is currently trying to stop smoking. I told her and see her back in 3 months for repeat evaluation. Richa Rubin MD cnov on 2020-02-05 CNOV Office Visit ([facility]) Normal 02-05-20 20 [place] [facility] JAZLYN GARZON ([id number]) 1965 [place] Date Time Provider Department ([id number]) 02/05/20 2:00 PM RICHA RUBINWS During your visit today, we recorded the following informati on about you: Pulse Respiration Blood pressure Weight 100/minute 16/minute 142/84 91.6 kg Richa Rubin MD 02/05/2020 4:29 PM Signed [facility] SECTION [facility] REGIONAL CARDIOLOGY Cardiology ([facility]) [address] [facility] [address] OUTPATIENT VISIT DATE 02/04/2020 PRIMARY CARE PHYSICIAN: Hugo Nava MD [address] [place] [address] REFERRING PHYSICIAN: Hugo Nava MD [address] [facility] [id number] CHIEF COMPLAINT: Inappropriate sinus tachycardia and chest p ain HISTORY OF PRESENT ILLNESS: Ms. Garzon is a 54 year old woman who has had a long-standing history of labile tachycardia. He tells me all her symptoms started after a do se part of hemorrhage when she was 19 years old. After that time she started developing increased heart rates. She describes a feeling of palpitatio ns and racing heart that had occur intermittently. Is not necessarily asso ciated with anxiety. Feels sicker heart rate increases and then she beco mes anxious. She's undergone multiple Holter monitors stress test and echocardiogram. She's been evaluated over many years. I review ed most of her notes were available in the system. She's also been evaluated outside facilities. Sh e describes a feeling of squeezing like he r muscles are tight all over her body which happens intermittently. It is not know so we associated with exertion. When she has a feelings she's testers self by running up her stairs. She gets out of breath but has no worsening feelings of chest tightness. There seem ed to be no exacerbating relieving factors when she has increased heart rate. However, she does note that her heart rates are better and she feel s better when she's on hormone replacement therapy. However, she has side effects s econdary to hormone replacement therapy. She has not had symptoms consis tent with CHF including PND, orthopnea, or lower extremity edema. Risk factors for coronary artery disease Family history: Patient's father had his first M I at age 50. He had stents at age 60 and at age 64 from a myocardial infarction. Ongoing smoking of one pack per day for 22 years Obesity Post menopausal PAST MEDICAL HISTORY Diagnosis Date - Abdominal pain, chronic, right upper quadrant - Asthma As a baby, then I outgrew it. - Cystocele, midline 05/13/2009 - Delayed emergence from anesthesia 09/27/2014 - Depression - Excessive or frequent menstruation Heavy periods - HSDD 10/21/2011 - Hypothyroidism should be on FRANCESCO synthroid. - Irregular menstrual cycle Irregular periods - menopause age 43 2009 in 2012 FSH 47 - Moderate dysplasia of cervix 2001 - Parent-child conflict 03/07/2013 - PMH - PAST MEDICAL HISTORY OF thyroid ablation/hypothyroid - Postmenopausal HRT (hormone replacement therapy) 12/13/2015 in 2014 took femHRT cried 11/2015 offer climara/prometrium - Rectocele 05/13/2009 - SVT (supraventricular tachycardia) (HCC) - Syncope 05/14/2013 -Reported that she had one episode of syncope at the OSH. -H ad the episode when she stood up. -No urinary incontinence or jerking movements. -Never had syncope episode before. -Last Echo stress test f or her chest pain was in 2011 (normal) Plan: -Repeat the Echo: normal - The left ventricle is normal in size. Left ventricular systo lic function is normal. EF = 63 ? 5% (2D biplane) - The right ventricle is normal in size. Right joel tricular systolic function is normal. - There are no significant valvular abnormalities. - Prior echocardiogram performed on 11/10/11 (stress echo). No significant change. - Tele - Tobacco use - Weight gain PAST SURGICAL HISTORY Procedure Laterality Date - CERVIX UTERI CONIZA LP ELCTRO EXCI 2001 LEEP-Cervix - COLONOSCOPY 04/2017 says nl - EGD W/O OR W/BRUSH/WASH 01/22/2014,2009 EGD - LAPAROSCOPIC CHOLEYCYSTECTOMY 05/19/2011 - LIGATE FALLOPIAN TUBE 2003 Tubal ligation - PAST SURGICAL HISTORY OF 1998 tubal - PAST SURGICAL HISTORY OF 2001 thyroid ablation - REMOVAL OF OVARY(S) 09/2014 laparoscopic left, CW, umbilical/upper abdominal adhesions s een benign SOCIAL HISTORY Social History Tobacco Use - Smoking status: Current Every Day Smoker Packs/day: 0.50 Types: Cigarettes Start date: 1985 - Smokeless tobacco: Never Used - Tobacco comment: Has quit intermittently, And I'm working on it now. 1st AM cigarette 10-15 minutes after awake. Most desire d is that one, or last of day before bed. Prior 8 month quits, resumed after pregnancies c ompleted. TO Substance Use Topics - Alcohol use: No Frequency: Never Drinks per session: Patient refused Binge frequency: Never - Drug use: No FAMILY HISTORY Problem Relation Age of Onset - Diabetes Mother Type 2 stroke - Colon Cancer Father age 64 [place] - Diabetes Father Type 2 - Hypertension Father - Coronary Artery Disease Father Hx of [place] - Thyroid Sister hx of parathyroid disease/ hx of fibroids - other (healthy) Brother - other (healthy) Brother - Allergies Daughter - other (healthy) Daughter - other (healthy) Son - other (healthy) Son - other (healthy) Son - other (healthy) Son - Colon Cancer Paternal Aunt x5 - Colon Cancer Paternal Uncle x8 ALLERGIES: ALLERGIES Allergen Reactions - Codeine GI Upset, Vomiting - Percocet [Oxycodone* Vomiting - Solumedrol [Methylp* Mental Status Change Made her rageful - Vicodin [Hydrocodon* Vomiting - Combipatch [Estradi* Intolerance feels wired, muscles hurt, lips/mouth burn, feels like asthm a flaring, nausea, dizziness. - Metformin Other: See Comments Myalgias. - Pepcid [Famotidine * Other: See Comments Dry eyes, mouth, rash, itching, anxiety - Tapazole [Methimazo* Hives MEDICATIONS: CPAP Initiate Auto PAP @ 5-20 cm of water with humidificatio n. Mask (per patient preference) optional chin strap (if indicated) , leroy ters, tubing, humidifier and lifetime supplies. SYNTHROID 137 mcg tablet Take by mouth 8 tabs daily / weekly lancets (FREESTYLE LANCETS) 28 gauge misc USE FOUR TIMES [place] LY DIRECTED blood sugar diagnostic (FREESTYLE TEST) test strip TEST four times a day Blood-Glucose Meter (FREESTYLE LITE METER) monitoring kit 1 Each as needed. Blood-Glucose Meter (FREESTYLE LITE METER) monitoring kit 1 Each as needed. REVIEW OF SYSTEMS: Review of Systems Constitutional: Positive for malaise/fatigue. Negative for chills, fever and weight loss. HENT: Negative for hearing loss and sore throat. Eyes: Negative for blurred vision and double vision. Respiratory: Positive for shortness of b reath. Negative for cough, hemoptysis, sputum production and wheezing. Cardiovascular: Positive for chest pain, palpitations and le g swelling. Negative for orthopnea, claudication and PND. Gastrointestinal: Positive f or heartburn. Negative for abdominal pain, blood in stool, constipation, diarrhea, melena, nausea and vomiting. Genitourinary: Negative for dysuria, frequency, hematuria an d urgency. Musculoskeletal: Negative. Skin: Negative. Neurological: Negative for d izziness, seizures, loss of consciousness, weakness and headaches. Endo/Heme/Allergies: Negative for environmental allergies. D oes not bruise/bleed easily. Psychiatric/Behavioral: Negative for depression. PHYSICAL EXAMINATION: BP 142/84 Pulse 100 Resp 16 Wt 91.6 kg (202 lb) LMP 03/10/2010 BMI 36.95 kg/m? Physical Exam Constitutional: She is oriented to perso n, place, and time and well-developed, well-nourished, and in no distress. HENT: Head: Normocephalic and atraumatic. Eyes: Conjunctivae and EOM are normal. Right eye exhib its no discharge. Left eye exhibits no discharge. No scleral icterus. Neck: Normal range of motion. Neck supple. No JVD present. N o thyromegaly present. Cardiovascular: Normal rate, regular rhythm, S1 normal, S2 n ormal, intact distal pulses and normal pulses. Exam reveals no shea p and no distant heart sounds. No murmur heard. Pulmonary/Chest: Effort normal and breath sounds redd l. She has no wheezes. She has no rales. Abdominal: Soft. Normal appearance, normal aorta and bowel sounds are normal. She exhibits no distension. There is no abdominal tenderness . Musculoskeletal: Normal range of motion. General: No tenderness or edema. Lymphadenopathy: She has no cervical adenopathy. Neurological: She is alert and oriented to person, place, an d time. Skin: Skin is warm and dry. No rash noted. She is not diaphoretic. No erythema. Psychiatric: Affect normal. Nursing note and vitals reviewed. CARDIOVASCULAR MEDICINE TESTING: Stress Echocardiogram 11/09/18: CONCLUSIONS: - Exam indication: Dizziness - The exercise stress echo was negative for ischemia at 98 % of MPHR (4.6 METS). - The left ventricle is normal in size.?Left joel tricular systolic function is normal. EF = 69 ? 5% (2D biplane) Normal left ve ntricular diastolic function. - The right ventricle is nor mal in size. Right ventricular systolic function is normal. - Exam was compared with the prior OUTSI DE echocardiographic exam performed on 02/15/18. Event monitor 10/20/2018 11 days Patient had a min HR of 53 bpm, max HR of 161 bpm, and avg H R of 90 bpm. Predominant underlying rhythm was Sinus Rhythm. Isolate d SVEs were rare (<1.0%), SVE Couplets were rare (<1.0% ), and SVE Triplets were rare (<1.0%). Isolated VEs were r are (<1.0%), and no VE Couplets or VE Triplets were present. ? Patient triggered events / symptom notations correlated with sinus, sinus tachycardia, infrequent SVEs IMPRESSION: Ms. Garzon is a 54 year old woman with a history of palpitati ons and sinus tachycardia of unclear etiology. I reviewed all her office notes and multiple tests that have been performed over the years. Had a recent admission to [facility] emergency room on that hospital admission, she describes severe chest pressure and palpitations. A CT scan was negative for pulmonary embolus and cardiac enzymes are completely negative. I s highly unlikely that she has a cardiac cause for her symptoms. I susp ect her tachycardia is likely secondary to another primary problem. I discussed this with her in detail. PLAN AND RECOMMENDATIONS: SVT (supraventricular tachycardia) (HCC) - ICD9: 427.89, ICD 10: I47.1 Sinus tachycardia of unclear etiology and likely secondary to another primary cause. Less likely postural orthostatic tachycardic syndrome , or primary arrhythmia such as AVRT or AVNRT. I'm reluctant to sta rt the patient on beta lelia therapy given that L believe that this i s a primary cardiac cause for her symptoms. In addition, I discussed the side effects of b eta lelia therapy with her in detail. She's concerned about the possib le fatigue. 4. Tobacco use - ICD9: 305.1, ICD10: Z72.0 - Cessation encouraged. - Physiologic and physical aspects of tobacco ad diction as well as strategies for quitting were discussed. - Counseling was given focusing on the harmful effects of th is addiction especially given the patient's medical condition(s) which wi ll be worsened because of the chemicals in tobacco. 5. Other chest pain - ICD9: 786.59, ICD10: R07.89 - Atypical chest pain without evidence of acute coronary syn drome or significant ischemia based on multiple risks rat ification at a bend completed over the years. Highly unlikely that she would have intense symptoms with negative cardiac workup by [facility] emergency room visits however, based on her risk factors which include a very strong family history of premature coronary disease and ongoing smoking may need to consider invasive testing. I discussed this with the patient in detail. She is currently trying t o stop smoking. I told her and see her back in 3 months for repeat evaluation. Richa Rubin MD Referring Provider: HUGO NAVA [[id number]] Allergies As of Date: 02/05/2020 Noted Allergy Reaction CODEINE 09/27/2014 8 - GI Upset 11 - Vomiting PERCOCET (OXYCODONE-ACETAMINOPHEN)07/17/2011 11 - Vomiting SOLUMEDROL (METHYLPREDNISOLONE SO*01/22/2014 1 - Mental Stat us Change Comments: Made her rageful VICODIN (HYDROCODONE-ACETAMINOPHE*07/17/2011 11 - Vomiting COMBIPATCH (ESTRADIOL-NORETHINDRO*10/26/2016 5 - Intolerance Comments: feels wired, muscles hurt, lips/mouth burn, feels like asthma flaring, nausea, dizziness. METFORMIN 10/28/2017 14 - Other: See Comments Comments: Myalgias. PEPCID (FAMOTIDINE (PF)) 07/07/2016 14 - Other: See Comments Comments: Dry eyes, mouth, rash, itching, anxiety TAPAZOLE (METHIMAZOLE) 10/14/2005 4 - Hives Date Reviewed: 02/05/2020 Reviewed by: Marlin Mohamud - Fully Assessed Reason for Visit: new patient [Other] Primary Visit Diagnosis:Mitral valve prolapse [I34.1] Other Visit Diagnoses:SVT (supraventricular tachycardia) (HC C) [I47.1] Hypoxia [R09.02] Tobacco use [Z72.0] Other chest pain [R07.89] Order(s):CONSULT TO CARDIOLOGY [9004] Order #: [id number] : 1 Prescriptions as of 02/05/2020 Sig: CPAP Initiate Auto PAP @ 5-20 cm o* SYNTHROID 137 MCG TABLET Take by mouth 8 tabs daily / * LANCETS 28 GAUGE USE FOUR TIMES DAILY DIREC* BLOOD SUGAR DIAGNOSTIC STRIPS TEST four times a day BLOOD-GLUCOSE METER KIT 1 Each as needed. BLOOD-GLUCOSE METER KIT 1 Each as needed. Problem List As Of Date 02/05/2020 Noted Resolved Postablative hypothyroidism [E89.0] 04/06/2006 More... Excessive or frequent menstruation [N92.0] 01/05/20072011 Irregular menstrual cycle [N92.6] 01/05/2007 10/06/2011 Unspecified aftercare [Z51.89] 05/26/2011 10/06/2011 Abdominal pain, chronic, right upper quadrant [* 10/06/2011 Post-menopause [Z78.0] 10/21/2011 03/18/2015 More... URI (upper respiratory infection) [J06.9] 05/14/2013 015 More... Pneumonia [J18.9] 05/14/2013 07/11/2014 More... More... More... More... More... Adrenal disorder [E27.9] 05/24/2013 07/11/2014 hx of low vitamin D [E55.9] 06/01/2013 Panic disorder with agoraphobia [F40.01] 07/10/2013 Chronic fatigue fibromyalgia syndrome [R53.82, *07/12/2013 Marital conflict [Z63.0] 08/30/2013 07/11/2014 Blood pressure elevated without history of HTN *09/06/2014 Impaired glucose tolerance [R73.02] 09/06/2014 More... Ovarian cyst [N83.209] 09/24/2014 03/18/2015 SVT (supraventricular tachycardia) (HCC) [I47.1]09/27/2014 Delayed emergence from anesthesia [T88.59XA] 09/27/201409/25 On home oxygen therapy [Z99.81] 09/27/2014 12/13/2015 PTSD (post-traumatic stress disorder) [F43.10] 11/01/2014 Attention deficit hyperactivity disorder (ADHD)*11/08/2014 Recurrent major depressive disorder, in partial*07/09/2015 Encounter for screening mammogram for malignant*12/12/2015 0 11/09/2016 menopause age 43 [N95.1] Tobacco use [Z72.0] Postmenopausal HRT (hormone replacement therapy*12/13/2015 0 11/09/2016 Weight gain [R63.5] 10/19/2017 GERD without esophagitis [K21.9] 05/12/2017 More... Simple chronic bronchitis (HCC) [J41.0] 12/01/2017 More... Irritable bowel syndrome with diarrhea [K58.0] 12/14/2017 Systemic lupus erythematosus (HCC) [M32.9] 02/14/2018 Burning sensation of mouth [R20.8] 02/16/2018 Burning sensation of skin [R20.8] 02/16/2018 Sleep difficulties [G47.9] 02/16/2018 Mitral valve prolapse [I34.1] 02/23/2018 More... Screening for malignant neoplasm of the cervix *06/20/2018 Visit for pelvic exam [Z01.419] 06/20/2018 Encounter for screening mammogram for malignant*06/20/2018 Estrogen deficiency [E28.39] 06/20/2018 Adrenal adenoma, left [D35.02] 08/25/2018 More... ANDRESSA (obstructive sleep apnea) [G47.33] 01/24/2020 Other chest pain [R07.89] 02/05/2020 Disposition: Return in about 4 months (around 06/07/2020). Follow-up and Disposition History Recorded Encounter Status:Closed by RICHA RUBIN on 02/05/20 progress on 2020-01 PROGRESS HNO ID: [id number] Normal 02-01-2020 [facility] Author: Hugo Nava [place] ([id number]) Service: ? Author Type: Physician Type: Progress Notes Filed: 02/01/2020 5:31 PM Note Text: No chief complaint on file. HPI:This Team Access Model visit is a virtual encounter. It required patient-provider interaction for the medical decision making as documented below. Patient was offered a virtual/telemedicine appointment in li eu of an office visit due to recommendations to reduce patient exposu re to COVID-19. Patient is aware of limitations of performing the visit without a face to face visit in the office setting and agrees. See my last routine ov in October: ? She was to stop self administering hormones and then actuall y try the lexapro. She is not taking the lexapro. She is on a compounded hormone prescription per Dr. Bennett and is feeling the best she has in four years. She is pleased with how she is feeling Dizziness is better. No side effects. They are not talking about following her endometrium. Both Jazlyn and I are concerned enough about it to follow it. Little reflux No burning skin or burning mouth. She recently saw endo. They are going to follow. She does no t feel her symptoms are endo related. Also had a sleep study that recommended cpap titration howev er apparently it was not bad enough to meet criteria Even though sleep med alessio recommended it. They recommended seeing sleep medicine. She spoke with sleep medicine. He stated he does not think t he sleep apnea is bad enough to contribute to her hypoxia. They recommended cardiology and pulmonary see her for evaluation. Has seen both in the p ast. She has an appt to sleep med set up. She still has occasional edema. She wakes up with it. It goe s down during the day. She is sleeping with her head completely elevated. She does have reflux that cannot be treated with meds due to intolerances. She has not wanted to pursue seeing someone to treat her surgically. She is not doing her hormones per Dr. Bennett's office She is supposed to go back to them for follow up. They have not ordered follow ups on her uterus and ovary. She feels everything is hormone related. Discussed having her see Dr. Bennett himself. She did not tolerate testosterone. She did feel better. Her family felt she was aggressive while on it. When she is initially on hormones, she feels fine. She admits to her depression is horrible. She has not starte d the lexapro. She does not want to try other psych meds. Admits to racing thoughts etc. No suicidal ideation. Her most recent TSH was stable. MEDICATIONS: Current Outpatient Medications Medication Sig - SYNTHROID 137 mcg tablet Take by mouth 8 tabs daily / week ly - lancets (FREESTYLE LANCETS) 28 gauge misc USE FOUR TIMES D AILY DIRECTED - blood sugar diagnostic (FREESTYLE TEST) test strip TEST fo ur times a day - Blood-Glucose Meter (FREESTYLE LITE METER) monitoring kit 1 Each as needed. - Blood-Glucose Meter (FREESTYLE LITE METER) monitoring kit 1 Each as needed. No current facility-administered medications for this visit. ALLERGIES: ALLERGIES Allergen Reactions - Codeine GI Upset, Vomiting - Percocet [Oxycodone* Vomiting - Solumedrol [Methylp* Mental Status Change Made her rageful - Vicodin [Hydrocodon* Vomiting - Combipatch [Estradi* Intolerance feels wired, muscles hurt, lips/mouth burn, feels like asthm a flaring, nausea, dizziness. - Metformin Other: See Comments Myalgias. - Pepcid [Famotidine * Other: See Comments Dry eyes, mouth, rash, itching, anxiety - Tapazole [Methimazo* Hives PAST MEDICAL HISTORY Diagnosis Date - Abdominal pain, chronic, right upper quadrant - Asthma As a baby, then I outgrew it. - Cystocele, midline 05/13/2009 - Delayed emergence from anesthesia 09/27/2014 - Depression - Excessive or frequent menstruation Heavy periods - HSDD 10/21/2011 - Hypothyroidism should be on FRANCESCO synthroid. - Irregular menstrual cycle Irregular periods - menopause age 43 2009 in 2013 FSH 47 - Moderate dysplasia of cervix 2001 - Parent-child conflict 03/07/2013 - PMH - PAST MEDICAL HISTORY OF thyroid ablation/hypothyroid - Postmenopausal HRT (hormone replacement therapy) 12/13/2015 in 2014 took femHRT cried 11/2015 offer climara/prometrium - Rectocele 05/13/2009 - SVT (supraventricular tachycardia) (HCC) - Syncope 05/14/2013 -Reported that she had one episode of syncope at the OSH. -H ad the episode when she stood up. -No urinary incontinence or jerki ng movements. -Never had syncope episode before. -Last Echo stress test fo r her chest pain was in 2011 (normal) Plan: -Repeat the Echo: normal - T he left ventricle is normal in size. Left ventricular systolic funct ion is normal. EF = 63 ? 5% (2D biplane) - The right ventricle is normal in size. Right ventricular systolic function is normal. - There are no sign ificant valvular abnormalities. - Prior echocardiogram performed on 11/10/11 (stress echo). No significant change. - Tele - Tobacco use - Weight gain PAST SURGICAL HISTORY Procedure Laterality Date - CERVIX UTERI CONIZA LP ELCTRO EXCI 2001 LEEP-Cervix - COLONOSCOPY 04/2017 says nl - EGD W/O OR W/BRUSH/WASH 01/22/2014,2009 EGD - LAPAROSCOPIC CHOLEYCYSTECTOMY 05/19/2011 - LIGATE FALLOPIAN TUBE 2003 Tubal ligation - PAST SURGICAL HISTORY OF 1998 tubal - PAST SURGICAL HISTORY OF 2001 thyroid ablation - REMOVAL OF OVARY(S) 09/2014 laparoscopic left, CW, umbilical/upper abdominal adhesions s een benign FAMILY HISTORY Problem Relation Age of Onset - Diabetes Mother Type 2 stroke - Colon Cancer Father age 64 [place] - Diabetes Father Type 2 - Hypertension Father - Coronary Artery Disease Father Hx of [place] - Thyroid Sister hx of parathyroid disease/ hx of fibroids - other (healthy) Brother - other (healthy) Brother - Allergies Daughter - other (healthy) Daughter - other (healthy) Son - other (healthy) Son - other (healthy) Son - other (healthy) Son - Colon Cancer Paternal Aunt x5 - Colon Cancer Paternal Uncle x8 Social History Tobacco Use - Smoking status: Current Every Day Smoker Packs/day: 0.50 Types: Cigarettes Start date: 1985 - Smokeless tobacco: Never Used - Tobacco comment: Has quit intermittently, And I'm working on it now. 1st AM cigarette 10-15 minutes after awake. Most desired is that one, or last of day before bed. Prior 8 month quits, resumed after p regnancies completed. TO Substance Use Topics - Alcohol use: No Frequency: Never Drinks per session: Patient refused Binge frequency: Never - Drug use: No Reviewed current medications, allergies, past medical histor y, surgical history, family history and social history today. REVIEW OF SYSTEMS All other reviewed and negative other than HPI. HEALTH MAINTENANCE: Discussed covid 19 safety and recommendations if patient tommy uld become ill. VITALS: LMP 03/10/2010 Last 4 Encounter Wt Readings: Date: Wt: 06/19/2019 91.2 kg (201 lb) 06/14/2019 91.6 kg (202 lb) 05/24/2019 90.3 kg (199 lb) 05/12/2019 89.8 kg (198 lb) PHYSICAL EXAMINATION: Patient is alert and oriented during visit. Answers appropri ately. No pallor. Breathing comfortably. PSYCH:Affect normal. Normal speech. Normal eye contact ASSESSMENT/PLAN: 1. Hypoxia - ICD9: 799.02, ICD10: R09.02 (primary diagnosis) - since sleep med does not think her nocturnal hypoxia is ca used by sleep apnea. Have cardiology and pulmonary assess. Has had such ex tensive testing already, would defer evaluation to them. - CONSULT TO PULM/CRITICAL CARE - CONSULT TO CARDIOLOGY 2. ANDRESSA (obstructive sleep apnea) - ICD9: 327.23, ICD10: G47. 33 - since sleep med has felt she would benefit, see if we can get autopap covered. - CPAP 3. Depression, unspecified depression type - ICD9: 311, ICD1 0: F32.9 - she promises will try lexapro. Encouraged to continue. 4. Impaired glucose tolerance - ICD9: 790.22, ICD10: R73.02 - follow up with endo 5. Attention deficit hyperactivity disorder (ADHD), combined type - ICD9: 314.01, ICD10: F90.2 - as above. Hugo Nava MD RTO in six weeks and prn. progress on 2020-01 PROGRESS HNO ID: [id number] Normal 01-30-2020 [place] Author: Ha Ortiz [facility]: ? [place] Author Type: Physician ([id number]) Type: Progress Notes Filed: 01/30/2020 1:44 PM Note Text: VIRTUAL VISIT DIABETES NOTE Reason for Consultation: Abnormal cushings screening, hypoth yroidism HISTORY OF PRESENT ILLNESS: Ms. Garzon is a 54 year old female presenting here today for a follow up of abnormal hannah screening test And hypothyroidism Feels her depression is worse - feels it is a result of ehr symptoms - dizziness and muscle fatigue Feels she has burning mouth and skin Today morning was very dizzy HR was 117 at that time BS at the time was 97 Feels it all begin when ovaries were taken out Has seen neurology - was given gabapentin but does not want to take it. ROS No chest pain No cough No nausea No seizures All other systems reviewed and found to be negative except t keyshawne mentioned in HPI PAST MEDICAL HISTORY Diagnosis Date - Abdominal pain, chronic, right upper quadrant - Asthma As a baby, then I outgrew it. - Cystocele, midline 05/13/2009 - Delayed emergence from anesthesia 09/27/2014 - Depression - Excessive or frequent menstruation Heavy periods - HSDD 10/21/2011 - Hypothyroidism should be on FRANCESCO synthroid. - Irregular menstrual cycle Irregular periods - menopause age 43 2009 in 2013 FSH 47 - Moderate dysplasia of cervix 2001 - Parent-child conflict 03/07/2013 - PMH - PAST MEDICAL HISTORY OF thyroid ablation/hypothyroid - Postmenopausal HRT (hormone replacement therapy) 12/13/2015 in 2014 took femHRT cried 11/2015 offer climara/prometrium - Rectocele 05/13/2009 - SVT (supraventricular tachycardia) (HCC) - Syncope 05/14/2013 -Reported that she had one episode of syncope at the OSH. -H ad the episode when she stood up. -No urinary incontinence or jerki ng movements. -Never had syncope episode before. -Last Echo stress test fo r her chest pain was in 2011 (normal) Plan: -Repeat the Echo: normal - T he left ventricle is normal in size. Left ventricular systolic funct ion is normal. EF = 63 ? 5% (2D biplane) - The right ventricle is normal in size. Right ventricular systolic function is normal. - There are no sign ificant valvular abnormalities. - Prior echocardiogram performed on 11/10/11 (stress echo). No significant change. - Tele - Tobacco use - Weight gain PAST SURGICAL HISTORY Procedure Laterality Date - CERVIX UTERI CONIZA LP ELCTRO EXCI 2001 LEEP-Cervix - COLONOSCOPY 04/2017 says nl - EGD W/O OR W/BRUSH/WASH 01/22/2014,2009 EGD - LAPAROSCOPIC CHOLEYCYSTECTOMY 05/19/2011 - LIGATE FALLOPIAN TUBE 2003 Tubal ligation - PAST SURGICAL HISTORY OF 1998 tubal - PAST SURGICAL HISTORY OF 2001 thyroid ablation - REMOVAL OF OVARY(S) 09/2014 laparoscopic left, CW, umbilical/upper abdominal adhesions s een benign FAMILY HISTORY Problem Relation Age of Onset - Diabetes Mother Type 2 stroke - Colon Cancer Father age 64 [place] - Diabetes Father Type 2 - Hypertension Father - Coronary Artery Disease Father Hx of [place] - Thyroid Sister hx of parathyroid disease/ hx of fibroids - other (healthy) Brother - other (healthy) Brother - Allergies Daughter - other (healthy) Daughter - other (healthy) Son - other (healthy) Son - other (healthy) Son - other (healthy) Son - Colon Cancer Paternal Aunt x5 - Colon Cancer Paternal Uncle x8 Social History Tobacco Use - Smoking status: Current Every Day Smoker Packs/day: 0.50 Types: Cigarettes Start date: 1985 - Smokeless tobacco: Never Used - Tobacco comment: Has quit intermittently, And I'm working on it now. 1st AM cigarette 10-15 minutes after awake. Most desired is that one, or last of day before bed. Prior 8 month quits, resumed after p regnanmatthew completed. TO Substance Use Topics - Alcohol use: No Frequency: Never Drinks per session: Patient refused Binge frequency: Never - Drug use: No Allergies As of Date: 01/30/2020 Allergen Noted Reaction CODEINE 09/27/2014 GI Upset and Vomiting PERCOCET [OXYCODONE-ACETAMINOPHEN]07/17/2011 Vomiting SOLUMEDROL [METHYLPREDNISOLONE SO*01/22/2014 Mental Status C hange VICODIN [HYDROCODONE-ACETAMINOPHE*07/17/2011 Vomiting COMBIPATCH [ESTRADIOL-NORETHINDRO*10/26/2016 Intolerance METFORMIN 10/28/2017 Other: See Comments PEPCID [FAMOTIDINE (PF)] 07/07/2016 Other: See Comments TAPAZOLE [METHIMAZOLE] 10/14/2005 Hives Fully Assessed 08/21/2019 Current Outpatient Medications Medication Sig Dispense Refill - SYNTHROID 137 mcg tablet Take by mouth 8 tabs daily / week ly 96 tablet 3 - lancets (FREESTYLE LANCETS) 28 gauge misc USE FOUR TIMES D AILY DIRECTED 400 Each 3 - blood sugar diagnostic (FREESTYLE TEST) test strip TEST fo ur times a day 400 Strip 3 - Blood-Glucose Meter (FREESTYLE LITE METER) monitoring kit 1 Each as needed. 1 Each 0 - Blood-Glucose Meter (FREESTYLE LITE METER) monitoring kit 1 Each as needed. 1 Each 0 No current facility-administered medications for this visit. PHYSICAL EXAMINATION: General Appearance: Well appearing, alert, in no acute distr ess, well-hydrated, well nourished. Affect: Pleasant and cooperative DATA: Hemoglobin A1C (%) Date Value 12/04/2019 6.0 ) Glucose (mg/dL) Date Value 12/04/2019 141 Potassium (mmol/L) Date Value 12/04/2019 3.7 Sodium (mmol/L) Date Value 12/04/2019 138 Chloride (mmol/L) Date Value 12/04/2019 103 CO2 (mmol/L) Date Value 12/04/2019 26 Creatinine (mg/dL) Date Value 12/04/2019 0.79 BUN (mg/dL) Date Value 12/04/2019 9 Anion Gap (mmol/L) Date Value 12/04/2019 9 Calcium (mg/dL) Date Value 12/04/2019 9.4 Component Latest Ref Rng AND Units 05/24/2019 12/04/2019 Creatinine mg/dL, Ur (UFRCRT) mg/dL 44 Creatinine mg/day, Ur (UFRCRT) 500 - 1,400 mg/d 1,452 (H) Free Cortisol ug/L, Urine ug/L 14.80 Free Cortisol ug/day, Urine <=45.0 ug/d 48.8 (H) Cortisol ug/g Market Asset Protection Manager, Ur (UFRCRT) ug/g PLASTIC BLOCK BOILER RELINER 33.64 Free Cortisol UR, Interpretation SEE NOTE Testosterone 8 - 60 ng/dL 20 Testosterone Free 0.06 - 0.92 ng/dL 0.22 Hemoglobin A1C 4.3 - 5.6 % 6.0 (H) Estimated Average Glucose mg/dL 126 Creatinine 24 hr Ur 0.8 - 1.8 g/24 hr 1.452 TSH 0.270 - 4.200 uU/mL 3.940 Free T3 2.3 - 4.1 pg/mL 2.8 Free T4 0.9 - 1.7 ng/dL 1.2 Assessment and Plan (R73.03) Prediabetes (primary encounter diagnosis) Comment: 6.0 in november 2019 Plan: no intervention at this time Do more walking (R94.7) Nonspecific abnormal results of endocrine function rupinder parker Comment: abnormal cushings screening Has no stigmata of cushings when I last saw her Plan: screening tests have been mildly abnormal Will put the conf test on the back burner Since she does not have any signs of cushings Hypothyroidism TSH normal in May 2019 Continue the same dose RTC in 6 months Ha Ortiz MD Component Latest Ref Rng AND Units 09/08/2017 09/16/201708/2502/08/2018 02/08/2018 02/08/2018 02/08/2018 05/02/2018 10/06/2018 9 12/12/2018 03/20/2019 05/24/2019 06/05/2019 06/15/2019 1:30 PM 1:30 PM 1:30 PM 1:30 PM Period hr 24 24 24 24 24 24 24 Urine Volume 3,690 Creatinine, Ur Random (UCRR) mg/dL 35 Creatinine mg/day, Urine 500 - 1,400 mg/d 1,292 Epinephrine, Ur 24hr 1 - 7 ug/d 7 Norepinephrine, Ur 24hr 16 - 71 ug/d 59 Dopamine, Ur 24hr 77 - 324 ug/d 251 Epinephrine, Ur ratio to PLASTIC BLOCK BOILER RELINER 0 - 20 ug/g PLASTIC BLOCK BOILER RELINER 6 Norepinephrine, Ur ratio to PLASTIC BLOCK BOILER RELINER 0 - 45 ug/g PLASTIC BLOCK BOILER RELINER 46 (H) Dopamine, Ur ratio to PLASTIC BLOCK BOILER RELINER 0 - 250 ug/g PLASTIC BLOCK BOILER RELINER 194 Catecholamines Interpretation SEE NOTE Epinephrine, Ur per vol ug/L 2 Norepinephrine, Ur per vol ug/L 16 Dopamine, Ur per vol ug/L 68 Creatinine mg/dL, Ur (UFRCRT) mg/dL 62 44 Creatinine mg/day, Ur (UFRCRT) 500 - 1,400 mg/d 1,415 (H) 1, 452 (H) Free Cortisol ug/L, Urine ug/L 20.30 14.80 Collection Period, Ur (UFRCRT) hr 24 Volume, Ur (UFRCRT) mL 2,283 Free Cortisol ug/day, Urine <=45.0 ug/d 46.3 (H) 48.8 (H) Cortisol ug/g Market Asset Protection Manager, Ur (UFRCRT) ug/g PLASTIC BLOCK BOILER RELINER 32.74 33.64 Free Cortisol UR, Interpretation SEE NOTE SEE NOTE Urine Volume 24 hour mL 2,283 3,690 3,690 3,690 2,800 3,300 Collection Start Date 52,418 10,152,018 10,152,018 10,152,01 8 6,132,019 Collection Start Time 1,230 1,330 1,330 1,330 940 Collection End Date 52,518 10,162,018 10,162,018 10,162,018 6,142,019 Collection End Time 1,230 1,330 1,330 1,330 940 Testosterone 8 - 60 ng/dL 39 See Comment 30 Testosterone Free % 0.8 - 2.3 % 2.3 Percent free calculation not provided by [place]. Testosterone Free 0.06 - 0.92 ng/dL 8.8 See Comment 0.42 Metanephrine 52 - 341 ug/24 hr 85 Normetanephrine 88 - 444 ug/24 hr 413 Tot Metanephrine 140 - 785 ug/24 hr 498 Hemoglobin A1C 4.3 - 5.6 % 5.8 (H) Estimated Average Glucose mg/dL 120 DHEA-S 35.4 - 256.0 ug/dL 32.1 (L) 25.7 (L) 22.7 (L) Cortisol ug/dL 29.6 8.2 34.0 ACTH <47 pg/mL 18 25 Cortisol, Saliva ug/dL 0.106 0.279 Creatinine 24 hr Ur 0.8 - 1.8 g/24 hr 1.369 1.428 1.452 VMA per 24 hours 0.0 - 8.0 mg/24hrs 3.0 TSH 0.270 - 4.200 uU/mL 2.320 1.640 2.610 Glucose, Fasting 74 - 99 mg/dL 108 (H) Insulin 3.0 - 25.0 mU/L 18.9 Tryptase <8.4 ug/L 7.2 [facility]pn [facility]) Normal 01-29-2020 [place] JAZLYN Jones ([id number]) 1965 F [facility] Time Provider Department ([id number]) 01/29/20 HUGO NAVA During your visit today, we recorded the following informati on about you: Hugo Nava MD 01/29/2020 12:47 PM Signed Let her know [facility] contacted us. Even the the doctor reading it felt she should be treated w ith cpap, her insurance if refusing to cover at her level. We could have her see a sleep doc if she is willing. Sudha Joesph MARRERO 01/29/2020 1:34 PM Signed [employer] message sent to patient. Allergies As of Date: 01/29/2020 Noted Allergy Reaction CODEINE 09/27/2014 8 - GI Upset 11 - Vomiting PERCOCET (OXYCODONE-ACETAMINOPHEN)07/17/2011 11 - Vomiting SOLUMEDROL (METHYLPREDNISOLONE SO*01/22/2014 1 - Mental Stat us Change Comments: Made her rageful VICODIN (HYDROCODONE-ACETAMINOPHE*07/17/2011 11 - Vomiting COMBIPATCH (ESTRADIOL-NORETHINDRO*10/26/2016 5 - Intolerance Comments: feels wired, muscles hurt, lips/mouth burn, feels like asthma flaring, nausea, dizziness. METFORMIN 10/28/2017 14 - Other: See Comments Comments: Myalgias. PEPCID (FAMOTIDINE (PF)) 07/07/2016 14 - Other: See Comments Comments: Dry eyes, mouth, rash, itching, anxiety TAPAZOLE (METHIMAZOLE) 10/14/2005 4 - Hives Date Reviewed: 08/21/2019 Reviewed by: Ofe ([facility]) Yoel - Fully Assessed Reason for Visit: Results - Sleep Study [3564] Prescriptions as of 01/29/2020 Sig: SYNTHROID 137 MCG TABLET Take by mouth 8 tabs daily / * LANCETS 28 GAUGE USE FOUR TIMES DAILY DIREC* BLOOD SUGAR DIAGNOSTIC STRIPS TEST four times a day BLOOD-GLUCOSE METER KIT 1 Each as needed. BLOOD-GLUCOSE METER KIT 1 Each as needed. Problem List As Of Date 01/29/2020 Noted Resolved Postablative hypothyroidism [E89.0] 04/06/2006 More... Excessive or frequent menstruation [N92.0] 01/05/20072011 Irregular menstrual cycle [N92.6] 01/05/2007 10/06/2011 Unspecified aftercare [Z51.89] 05/26/2011 10/06/2011 Abdominal pain, chronic, right upper quadrant [* 10/06/2011 Post-menopause [Z78.0] 10/21/2011 03/18/2015 More... URI (upper respiratory infection) [J06.9] 05/14/2013 015 More... Pneumonia [J18.9] 05/14/2013 07/11/2014 More... More... More... More... More... Adrenal disorder [E27.9] 05/24/2013 07/11/2014 hx of low vitamin D [E55.9] 06/01/2013 Panic disorder with agoraphobia [F40.01] 07/10/2013 Chronic fatigue fibromyalgia syndrome [R53.82, *07/12/2013 Marital conflict [Z63.0] 08/30/2013 07/11/2014 Blood pressure elevated without history of HTN *09/06/2014 Impaired glucose tolerance [R73.02] 09/06/2014 More... Ovarian cyst [N83.209] 09/24/2014 03/18/2015 SVT (supraventricular tachycardia) (HCC) [I47.1]09/27/2014 Delayed emergence from anesthesia [T88.59XA] 09/27/201409/25 On home oxygen therapy [Z99.81] 09/27/2014 12/13/2015 PTSD (post-traumatic stress disorder) [F43.10] 11/01/2014 Attention deficit hyperactivity disorder (ADHD)*11/08/2014 Recurrent major depressive disorder, in partial*07/09/2015 Encounter for screening mammogram for malignant*12/12/2015 0 11/09/2016 menopause age 43 [N95.1] Tobacco use [Z72.0] Postmenopausal HRT (hormone replacement therapy*12/13/2015 0 11/09/2016 Weight gain [R63.5] 10/19/2017 GERD without esophagitis [K21.9] 05/12/2017 More... Simple chronic bronchitis (HCC) [J41.0] 12/01/2017 More... Irritable bowel syndrome with diarrhea [K58.0] 12/14/2017 Systemic lupus erythematosus (HCC) [M32.9] 02/14/2018 Burning sensation of mouth [R20.8] 02/16/2018 Burning sensation of skin [R20.8] 02/16/2018 Sleep difficulties [G47.9] 02/16/2018 Mitral valve prolapse [I34.1] 02/23/2018 More... Screening for malignant neoplasm of the cervix *06/20/2018 Visit for pelvic exam [Z01.419] 06/20/2018 Encounter for screening mammogram for malignant*06/20/2018 Estrogen deficiency [E28.39] 06/20/2018 Adrenal adenoma, left [D35.02] 08/25/2018 More... ANDRESSA (obstructive sleep apnea) [G47.33] 01/24/2020 Encounter Status:Closed by SUDHA PINK LPN on 01/29/20 cnpn on 2020-01-11 [facility] Normal 01-11-2020 [place] JAZLYN Jones ([id number]) 1965 [facility] Date Time Provider Department ([id number]) 01/11/20 Antonieta CEJA (GREGORIO) [facility] During your visit today, we recorded the following informati on about you: Darlene Donato LPN 01/11/2020 8:21 AM Signed Michelle from [facility] Sleep [facility] satnam ling patient is scheduled for sleep study 01/15/2020 and has no office notes supporting why sleep romulo dy is needed. Michelle is asking for face to face prior to sleep study please. Please advise Antonieta Ceja PA-C 01/11/2020 4:28 PM Signed Please copy 12/27/19 Dr. Nava message and send. Too many notes and messages to go through. Can you find date of original test orders? Thanks, GREGORIO Rosas LPN 01/11/2020 5:17 PM Signed Found the original office visit when sleep study first ordered and some other documentation of most recent sleep study. All faxed to [facility] S leep lab. Allergies As of Date: 01/11/2020 Noted Allergy Reaction CODEINE 09/27/2014 8 - GI Upset 11 - Vomiting PERCOCET (OXYCODONE-ACETAMINOPHEN)07/17/2011 11 - Vomiting SOLUMEDROL (METHYLPREDNISOLONE SO*01/22/2014 1 - Mental Stat us Change Comments: Made her rageful VICODIN (HYDROCODONE-ACETAMINOPHE*07/17/2011 11 - Vomiting COMBIPATCH (ESTRADIOL-NORETHINDRO*10/26/2016 5 - Intolerance Comments: feels wired, muscles hurt, lips/mouth burn, feels like asthma flaring, nausea, dizziness. METFORMIN 10/28/2017 14 - Other: See Comments Comments: Myalgias. PEPCID (FAMOTIDINE (PF)) 07/07/2016 14 - Other: See Comments Comments: Dry eyes, mouth, rash, itching, anxiety TAPAZOLE (METHIMAZOLE) 10/14/2005 4 - Hives Date Reviewed: 08/21/2019 Reviewed by: Ofe ([facility]) Yoel - Fully Assessed Reason for Visit: needs notes supporting sleep study order [Other] Prescriptions as of 01/11/2020 Sig: AMOXICILLIN 875 MG-POTASSIUM * Take 1 tablet by mouth twice * SYNTHROID 137 MCG TABLET Take by mouth 8 tabs daily / * LANCETS 28 GAUGE USE FOUR TIMES DAILY DIREC* BLOOD SUGAR DIAGNOSTIC STRIPS TEST four times a day BLOOD-GLUCOSE METER KIT 1 Each as needed. BLOOD-GLUCOSE METER KIT 1 Each as needed. Problem List As Of Date 01/11/2020 Noted Resolved Postablative hypothyroidism [E89.0] 04/06/2006 More... Excessive or frequent menstruation [N92.0] 01/05/20072011 Irregular menstrual cycle [N92.6] 01/05/2007 10/06/2011 Unspecified aftercare [Z51.89] 05/26/2011 10/06/2011 Abdominal pain, chronic, right upper quadrant [* 10/06/2011 Post-menopause [Z78.0] 10/21/2011 03/18/2015 More... URI (upper respiratory infection) [J06.9] 05/14/2013 015 More... Pneumonia [J18.9] 05/14/2013 07/11/2014 More... More... More... More... More... Adrenal disorder [E27.9] 05/24/2013 07/11/2014 hx of low vitamin D [E55.9] 06/01/2013 Panic disorder with agoraphobia [F40.01] 07/10/2013 Chronic fatigue fibromyalgia syndrome [R53.82, *07/12/2013 Marital conflict [Z63.0] 08/30/2013 07/11/2014 Blood pressure elevated without history of HTN *09/06/2014 Impaired glucose tolerance [R73.02] 09/06/2014 More... Ovarian cyst [N83.209] 09/24/2014 03/18/2015 SVT (supraventricular tachycardia) (HCC) [I47.1]09/27/2014 Delayed emergence from anesthesia [T88.59XA] 09/27/201409/25 On home oxygen therapy [Z99.81] 09/27/2014 12/13/2015 PTSD (post-traumatic stress disorder) [F43.10] 11/01/2014 Attention deficit hyperactivity disorder (ADHD)*11/08/2014 Recurrent major depressive disorder, in partial*07/09/2015 Encounter for screening mammogram for malignant*12/12/2015 0 11/09/2016 menopause age 43 [N95.1] Tobacco use [Z72.0] Postmenopausal HRT (hormone replacement therapy*12/13/2015 0 11/09/2016 Weight gain [R63.5] 10/19/2017 GERD without esophagitis [K21.9] 05/12/2017 More... Simple chronic bronchitis (HCC) [J41.0] 12/01/2017 More... Irritable bowel syndrome with diarrhea [K58.0] 12/14/2017 Systemic lupus erythematosus (HCC) [M32.9] 02/14/2018 Burning sensation of mouth [R20.8] 02/16/2018 Burning sensation of skin [R20.8] 02/16/2018 Sleep difficulties [G47.9] 02/16/2018 Mitral valve prolapse [I34.1] 02/23/2018 More... Screening for malignant neoplasm of the cervix *06/20/2018 Visit for pelvic exam [Z01.419] 06/20/2018 Encounter for screening mammogram for malignant*06/20/2018 Estrogen deficiency [E28.39] 06/20/2018 Adrenal adenoma, left [D35.02] 08/25/2018 More... Encounter Status:Closed by SANDRA HACKETT LPN on 01/11/20 progress on 2019-12 PROGRESS HNO ID: [id number] Normal 01-04-2020 [facility] Author: Hugo Nava [place] ([id number]) Service: ? Author Type: Physician Type: Progress Notes Filed: 01/04/2020 9:08 AM Note Text: No chief complaint on file. HPI:This Team Access Model visit is a phone encounter. It re quired patient-provider interaction for the medical decision making as documented below. Patient was offered a virtual/telemedicine appointment in li eu of an office visit due to recommendations to reduce patient exposu re to COVID-19. Patient is aware of limitations of performing the visit without a face to face visit in the office setting and agrees. Complains of sinus congestion. Has had some worsening reflux. Has been sick for three weeks. Not going away. No drainage. No fever or chills. Mild sore throat intermittently due to reflux. No changes in smell or taste. Has discomfort behind left eye and forehead. Has mild headache. Has some cough. No shortness of breath. No myalgias. MEDICATIONS: Current Outpatient Medications Medication Sig - SYNTHROID 137 mcg tablet Take by mouth 8 tabs daily / week ly - lancets (FREESTYLE LANCETS) 28 gauge misc USE FOUR TIMES D AILY DIRECTED - blood sugar diagnostic (FREESTYLE TEST) test strip TEST fo ur times a day - Blood-Glucose Meter (FREESTYLE LITE METER) monitoring kit 1 Each as needed. - Blood-Glucose Meter (FREESTYLE LITE METER) monitoring kit 1 Each as needed. No current facility-administered medications for this visit. ALLERGIES: ALLERGIES Allergen Reactions - Codeine GI Upset, Vomiting - Percocet [Oxycodone* Vomiting - Solumedrol [Methylp* Mental Status Change Made her rageful - Vicodin [Hydrocodon* Vomiting - Combipatch [Estradi* Intolerance feels wired, muscles hurt, lips/mouth burn, feels like asthm a flaring, nausea, dizziness. - Metformin Other: See Comments Myalgias. - Pepcid [Famotidine * Other: See Comments Dry eyes, mouth, rash, itching, anxiety - Tapazole [Methimazo* Hives PAST MEDICAL HISTORY Diagnosis Date - Abdominal pain, chronic, right upper quadrant - Asthma As a baby, then I outgrew it. - Cystocele, midline 05/13/2009 - Delayed emergence from anesthesia 09/27/2014 - Depression - Excessive or frequent menstruation Heavy periods - HSDD 10/21/2011 - Hypothyroidism should be on FRANCESCO synthroid. - Irregular menstrual cycle Irregular periods - menopause age 43 2009 in 2013 FSH 47 - Moderate dysplasia of cervix 2001 - Parent-child conflict 03/07/2013 - PMH - PAST MEDICAL HISTORY OF thyroid ablation/hypothyroid - Postmenopausal HRT (hormone replacement therapy) 12/13/2015 in 2014 took femHRT cried 11/2015 offer climara/prometrium - Rectocele 05/13/2009 - SVT (supraventricular tachycardia) (HCC) - Syncope 05/14/2013 -Reported that she had one episode of syncope at the OSH. -H ad the episode when she stood up. -No urinary incontinence or jerki ng movements. -Never had syncope episode before. -Last Echo stress test fo r her chest pain was in 2011 (normal) Plan: -Repeat the Echo: normal - T he left ventricle is normal in size. Left ventricular systolic funct ion is normal. EF = 63 ? 5% (2D biplane) - The right ventricle is normal in size. Right ventricular systolic function is normal. - There are no sign ificant valvular abnormalities. - Prior echocardiogram performed on 11/10/11 (stress echo). No significant change. - Tele - Tobacco use - Weight gain PAST SURGICAL HISTORY Procedure Laterality Date - CERVIX UTERI CONIZA LP ELCTRO EXCI 2001 LEEP-Cervix - COLONOSCOPY 04/2017 says nl - EGD W/O OR W/BRUSH/WASH 01/22/2014,2009 EGD - LAPAROSCOPIC CHOLEYCYSTECTOMY 05/19/2011 - LIGATE FALLOPIAN TUBE 2003 Tubal ligation - PAST SURGICAL HISTORY OF 1998 tubal - PAST SURGICAL HISTORY OF 2001 thyroid ablation - REMOVAL OF OVARY(S) 09/2014 laparoscopic left, CW, umbilical/upper abdominal adhesions s een benign FAMILY HISTORY Problem Relation Age of Onset - Diabetes Mother Type 2 stroke - Colon Cancer Father age 64 [place] - Diabetes Father Type 2 - Hypertension Father - Coronary Artery Disease Father Hx of [place] - Thyroid Sister hx of parathyroid disease/ hx of fibroids - other (healthy) Brother - other (healthy) Brother - Allergies Daughter - other (healthy) Daughter - other (healthy) Son - other (healthy) Son - other (healthy) Son - other (healthy) Son - Colon Cancer Paternal Aunt x5 - Colon Cancer Paternal Uncle x8 Social History Tobacco Use - Smoking status: Current Every Day Smoker Packs/day: 0.50 Types: Cigarettes Start date: 1985 - Smokeless tobacco: Never Used - Tobacco comment: Has quit intermittently, And I'm working on it now. 1st AM cigarette 10-15 minutes after awake. Most desired is that one, or last of day before bed. Prior 8 month quits, resumed after p regnancies completed. TO Substance Use Topics - Alcohol use: No Frequency: Never Drinks per session: Patient refused Binge frequency: Never - Drug use: No Reviewed current medications, allergies, past medical histor y, surgical history, family history and social history today. REVIEW OF SYSTEMS All other reviewed and negative other than HPI. VITALS: LMP 03/10/2010 Last 4 Encounter Wt Readings: Date: Wt: 06/19/2019 91.2 kg (201 lb) 06/14/2019 91.6 kg (202 lb) 05/24/2019 90.3 kg (199 lb) 05/12/2019 89.8 kg (198 lb) PHYSICAL EXAMINATION: Patient is alert and oriented during visit. Answers appropri ately. Breathing comfortably. Audible cough. ASSESSMENT/PLAN: 1. Bacterial sinusitis - ICD9: 473.9, 041.9, ICD10: J32.9, B 96.89 - Discussed risks and benefits of new medication with the raymond vale. Advised them to call if any side effects or questions. Red flags for re-assessment reviewed with patient in detail. Call if symptoms worsen at all or if not better in one to tw o weeks Reviewed diagnosis and treatment options in detail. Question s were answered. Patient expressed understanding of treatment plan. - declines covid testing. - AMOXICILLIN 875 MG-POTASSIUM CLAVULANATE 125 MG TABLET Hugo Nava MD RTO prn. I spent 18 minutes in the visit, with more than 50% of the t otal [id number] time of the visit in counseling / coordination of care. obsolete on 2019-12 OBSOLETE Refill (ENDOSO) Normal 12-31-2019 Soy cortez [facility] FLORAJAZLYN ([id number]) 1965 [facility] Date Time Provider Department ([id number]) 12/31/19 KARO CALLAHANO During your visit today, we recorded the following informati on about you: Mague Ivory Ma 01/02/2020 8:55 AM Signed Rx last filled on 11/01/2018 ANCELMO: 06/26/2019 Please review pended order, thank you. Pending Prescriptions Disp Refills FREESTYLE TEST STRIPS 400 Strip 3 Sig: TEST four times a day FRANCESCO: No Mague Ortiz MD 01/02/2020 9:00 AM Signed She has prediabetes accrording to the last note and hence do es not need to check 4 tiems a day - in fact prediabeti cs are not asked to check blood sugars at all. Transfer her to the schedulers to make a follow up wit h me virtually is fine MD Mague Dinero Ma 01/04/2020 8:17 AM Signed Please help patient schedule a follow up thank you. Patient is seen in [place], I do not have the [place] schedulers pool. Mague Buck Pss 01/17/2020 10:07 AM Signed Called patient and scheduled Virtual 01/30/2020 Allergies As of Date: 12/31/2019 Noted Allergy Reaction CODEINE 09/27/2014 8 - GI Upset 11 - Vomiting PERCOCET (OXYCODONE-ACETAMINOPHEN)07/17/2011 11 - Vomiting SOLUMEDROL (METHYLPREDNISOLONE SO*01/22/2014 1 - Mental Stat us Change Comments: Made her rageful VICODIN (HYDROCODONE-ACETAMINOPHE*07/17/2011 11 - Vomiting COMBIPATCH (ESTRADIOL-NORETHINDRO*10/26/2016 5 - Intolerance Comments: feels wired, muscles hurt, lips/mouth burn, feels like asthma flaring, nausea, dizziness. METFORMIN 10/28/2017 14 - Other: See Comments Comments: Myalgias. PEPCID (FAMOTIDINE (PF)) 07/07/2016 14 - Other: See Comments Comments: Dry eyes, mouth, rash, itching, anxiety TAPAZOLE (METHIMAZOLE) 10/14/2005 4 - Hives Date Reviewed: 08/21/2019 Reviewed by: Ofe ([facility]) Yoel - Fully Assessed Reason for Visit: Refill Request [94] Prescriptions as of 12/31/2019 Sig: SYNTHROID 137 MCG TABLET Take by mouth 8 tabs daily / * LANCETS 28 GAUGE USE FOUR TIMES DAILY DIREC* BLOOD SUGAR DIAGNOSTIC STRIPS TEST four times a day BLOOD-GLUCOSE METER KIT 1 Each as needed. BLOOD-GLUCOSE METER KIT 1 Each as needed. Problem List As Of Date 12/31/2019 Noted Resolved Postablative hypothyroidism [E89.0] 04/06/2006 More... Excessive or frequent menstruation [N92.0] 01/05/20072011 Irregular menstrual cycle [N92.6] 01/05/2007 10/06/2011 Unspecified aftercare [Z51.89] 05/26/2011 10/06/2011 Abdominal pain, chronic, right upper quadrant [* 10/06/2011 Post-menopause [Z78.0] 10/21/2011 03/18/2015 More... URI (upper respiratory infection) [J06.9] 05/14/2013 015 More... Pneumonia [J18.9] 05/14/2013 07/11/2014 More... More... More... More... More... Adrenal disorder [E27.9] 05/24/2013 07/11/2014 hx of low vitamin D [E55.9] 06/01/2013 Panic disorder with agoraphobia [F40.01] 07/10/2013 Chronic fatigue fibromyalgia syndrome [R53.82, *07/12/2013 Marital conflict [Z63.0] 08/30/2013 07/11/2014 Blood pressure elevated without history of HTN *09/06/2014 Impaired glucose tolerance [R73.02] 09/06/2014 More... Ovarian cyst [N83.209] 09/24/2014 03/18/2015 SVT (supraventricular tachycardia) (HCC) [I47.1]09/27/2014 Delayed emergence from anesthesia [T88.59XA] 09/27/201409/25 On home oxygen therapy [Z99.81] 09/27/2014 12/13/2015 PTSD (post-traumatic stress disorder) [F43.10] 11/01/2014 Attention deficit hyperactivity disorder (ADHD)*11/08/2014 Recurrent major depressive disorder, in partial*07/09/2015 Encounter for screening mammogram for malignant*12/12/2015 0 11/09/2016 menopause age 43 [N95.1] Tobacco use [Z72.0] Postmenopausal HRT (hormone replacement therapy*12/13/2015 0 11/09/2016 Weight gain [R63.5] 10/19/2017 GERD without esophagitis [K21.9] 05/12/2017 More... Simple chronic bronchitis (HCC) [J41.0] 12/01/2017 More... Irritable bowel syndrome with diarrhea [K58.0] 12/14/2017 Systemic lupus erythematosus (HCC) [M32.9] 02/14/2018 Burning sensation of mouth [R20.8] 02/16/2018 Burning sensation of skin [R20.8] 02/16/2018 Sleep difficulties [G47.9] 02/16/2018 Mitral valve prolapse [I34.1] 02/23/2018 More... Screening for malignant neoplasm of the cervix *06/20/2018 Visit for pelvic exam [Z01.419] 06/20/2018 Encounter for screening mammogram for malignant*06/20/2018 Estrogen deficiency [E28.39] 06/20/2018 Adrenal adenoma, left [D35.02] 08/25/2018 More... Encounter Status:Closed by SENIA SOUZA on 01/17/20 cnpn on 2019-12-27 CNPN Telephone (FAMPWS) Normal 12-27-2019 [place] JAZLYN GARZON ([id number]) 1965 [facility] Date Time Provider Department ([id number]) 12/27/19 HUGO NAVA During your visit today, we recorded the following informati on about you: Hugo Nava MD 12/27/2019 9:56 AM Signed 1. Tell her happy birthday 2. Let her know her sleep test is inconclusive. They want us to do an inlab test. Will need preprocedure covid test if done at [facility] Shakir Andino LPN 12/27/2019 2:16 PM Signed TC to pt, left detailed mess age with provider instructions on secure identified voicemail. Schedulers please assist pt with scheduling inlab sleep stud y. [facility] 3:23 PM Signed Patient has test scheduled at [facility] Shakir Andino LPN 01/05/2020 3:42 PM Signed Order printed and faxed to [facility]. Shakir Andino LPN Allergies As of Date: 12/27/2019 Noted Allergy Reaction CODEINE 09/27/2014 8 - GI Upset 11 - Vomiting PERCOCET (OXYCODONE-ACETAMINOPHEN)07/17/2011 11 - Vomiting SOLUMEDROL (METHYLPREDNISOLONE SO*01/22/2014 1 - Mental Stat us Change Comments: Made her rageful VICODIN (HYDROCODONE-ACETAMINOPHE*07/17/2011 11 - Vomiting COMBIPATCH (ESTRADIOL-NORETHINDRO*10/26/2016 5 - Intolerance Comments: feels wired, muscles hurt, lips/mouth burn, feels like asthma flaring, nausea, dizziness. METFORMIN 10/28/2017 14 - Other: See Comments Comments: Myalgias. PEPCID (FAMOTIDINE (PF)) 07/07/2016 14 - Other: See Comments Comments: Dry eyes, mouth, rash, itching, anxiety TAPAZOLE (METHIMAZOLE) 10/14/2005 4 - Hives Date Reviewed: 08/21/2019 Reviewed by: Ofe Randhawa) Yoel - Fully Assessed Reason for Visit: Results [95] Primary Visit Diagnosis:ANDRESSA (obstructive sleep apnea) [G47.3 3] Other Visit Diagnosis:Hypoxia [R09.02] Order(s):POLYSOMNOGRAM (PSG) [[id number]] Order #: [id number] F UTURE PRE-PROCEDURE AND PRE-OPERATIVE COVID [SQPOCOVD] Order #: [id number] FUTURE Prescriptions as of 12/27/2019 Sig: SYNTHROID 137 MCG TABLET Take by mouth 8 tabs daily / * LANCETS 28 GAUGE USE FOUR TIMES DAILY DIREC* BLOOD SUGAR DIAGNOSTIC STRIPS TEST four times a day BLOOD-GLUCOSE METER KIT 1 Each as needed. BLOOD-GLUCOSE METER KIT 1 Each as needed. Problem List As Of Date 12/27/2019 Noted Resolved Postablative hypothyroidism [E89.0] 04/06/2006 More... Excessive or frequent menstruation [N92.0] 01/05/20072011 Irregular menstrual cycle [N92.6] 01/05/2007 10/06/2011 Unspecified aftercare [Z51.89] 05/26/2011 10/06/2011 Abdominal pain, chronic, right upper quadrant [* 10/06/2011 Post-menopause [Z78.0] 10/21/2011 03/18/2015 More... URI (upper respiratory infection) [J06.9] 05/14/2013 015 More... Pneumonia [J18.9] 05/14/2013 07/11/2014 More... More... More... More... More... Adrenal disorder [E27.9] 05/24/2013 07/11/2014 hx of low vitamin D [E55.9] 06/01/2013 Panic disorder with agoraphobia [F40.01] 07/10/2013 Chronic fatigue fibromyalgia syndrome [R53.82, *07/12/2013 Marital conflict [Z63.0] 08/30/2013 07/11/2014 Blood pressure elevated without history of HTN *09/06/2014 Impaired glucose tolerance [R73.02] 09/06/2014 More... Ovarian cyst [N83.209] 09/24/2014 03/18/2015 SVT (supraventricular tachycardia) (HCC) [I47.1]09/27/2014 Delayed emergence from anesthesia [T88.59XA] 09/27/201409/25 On home oxygen therapy [Z99.81] 09/27/2014 12/13/2015 PTSD (post-traumatic stress disorder) [F43.10] 11/01/2014 Attention deficit hyperactivity disorder (ADHD)*11/08/2014 Recurrent major depressive disorder, in partial*07/09/2015 Encounter for screening mammogram for malignant*12/12/2015 0 11/09/2016 menopause age 43 [N95.1] Tobacco use [Z72.0] Postmenopausal HRT (hormone replacement therapy*12/13/2015 0 11/09/2016 Weight gain [R63.5] 10/19/2017 GERD without esophagitis [K21.9] 05/12/2017 More... Simple chronic bronchitis (HCC) [J41.0] 12/01/2017 More... Irritable bowel syndrome with diarrhea [K58.0] 12/14/2017 Systemic lupus erythematosus (HCC) [M32.9] 02/14/2018 Burning sensation of mouth [R20.8] 02/16/2018 Burning sensation of skin [R20.8] 02/16/2018 Sleep difficulties [G47.9] 02/16/2018 Mitral valve prolapse [I34.1] 02/23/2018 More... Screening for malignant neoplasm of the cervix *06/20/2018 Visit for pelvic exam [Z01.419] 06/20/2018 Encounter for screening mammogram for malignant*06/20/2018 Estrogen deficiency [E28.39] 06/20/2018 Adrenal adenoma, left [D35.02] 08/25/2018 More... Encounter Status:Closed by SHAKIR ANDINO LPN on 01/05/20 No panel information on 2019-12-26 Snubber study) or an alternative 0 12-26-2019 [facility] ([id number]) hypopnea sensor (diagnostic study). The duration of Snubber baseline using nasal pressure 12-26-2019 [facility] ([id number]) (diagnostic study), PAP device flow (titration Snubber Hypopnea definition: The peak 12-26-2019 [facility] ([id number]) signal excursions drop by =30% of pre-event Snubber duration of the >90% drop in 12-26-2019 [facility] ([facility]) signal excursion is =10 seconds. Snubber (titration study) or an [facility] ([facility]) alternative apnea sensor (diagnostic study). The Snubber baseline using an oronasal 12-26-2019 [facility] ([facility]) thermal sensor (diagnostic study), PAP device flow Snubber Apnea definition: The peak 12-26-2019 [facility] ([facility]) signal excursions drop by >90% of pre-event Snubber Name: JAZLYN GARZON Date of 0 12-26-2019 [facility] ([facility]) Study: 12/14/2019 [facility]#: [id number] Snubber the AASM Manual for Scoring of 12-26-2019 [facility] ([facility]) Sleep and Associated Events version 2.5. Snubber accurate index of respiratory 12-26-2019 [facility] ([facility]) events. The ELIAS is a surrogate of the AHI per Snubber test. Since the home sleep 12-26-2019 [facility] ([facility]) apnea test does not measure sleep, the ELIAS is most Snubber index has been replaced by the 12-26-2019 [facility] ([facility]) respiratory event index for home sleep apnea Snubber events x 60 / TRT (total 0 12-26-2019 [facility] ([facility]) recording time in minutes). Note: the apnea hypopnea Snubber ELIAS definition: Respiratory 12-26-2019 [facility] ([facility]) event index (ELIAS), calculated as respiratory Snubber abdominal effort, and body 12-26-2019 [facility] ([facility]) position. Snubber pressure transducer, snoring 12-26-2019 [facility] ([facility]) via nasal pressure transducer, chest and Snubber rate, oxygen saturation, 0 12-26-2019 [facility] ([facility]) continuous airflow with thermistor and nasal Snubber a registered sleep [address] [place] [address] ([facility]) technologist. The monitored parameters included heart Snubber and was unattended. The [facility] ([facility]) patient was instructed on proper use of the device by Snubber Procedure: This study was 12-26-2019 [facility] ([facility]) performed using a Type III ambulatory PSG device Snubber Sleep procedure: PSG 12-25 [facility] ([facility]) unattended Type III, minimum of 4 parameters ([id number]) Snubber Medications: Synthroid [facility] ([facility]) Snubber Past medical history: ADHD, 12-26-2019 [facility] ([facility]) GERD, Hypothyroidism, SVT, Obesity Snubber mouth/sore throat. The patient 12-26-2019 [facility] ([facility]) endorses being a habitual side sleeper. Snubber gasping, snorting, multiple 12-26-2019 [facility] ([facility]) awakenings from sleep, and waking up with dry Snubber difficulty initiating sleep, 12-26-2019 [facility] ([facility]) daytime sleepiness, fatigue, waking up choking, Snubber Sleep history: The patient is 12-26-2019 [facility] ([facility]) a 53 year old female with a history of Snubber Referring Provider: HUGO 12-26-2019 [facility] ([facility]) ELIJAH Mailcode: [id number] Snubber time was 407 minutes. By 0 12-26-2019 [facility] ([facility]) convention, sleep is assumed for the whole Snubber Age: 53 (: 1965) ESS: 12-26-2019 [facility] ([facility]) Neck Circ. (cm): N/A Snubber 2. Recommend an in-laboratory 12-26-2019 [facility] ([facility]) polysomnogram if sleep apnea remains highly Snubber UVALDO MARIE (12/26/2019 12-26-2019 [facility] ([facility]) 2:40:02 PM) Snubber Report Digitally Signed By: 12-26-2019 [facility] ([facility]) Snubber 12-26-2019 [facility] ([facility]) Snubber [address], 12-26-2019 [facility] ([facility] [place] [address] Snubber I attest that I have performed 12-26-2019 [place] [address]) epoch by epoch review of the entire raw data. Snubber Uvaldo Marie MD 12-26-2019 [facility] ([facility]) Snubber INTERPRETING PHYSICIAN: [facility] ([facility]) Snubber to hypoventilation or a [facility] ([facility]) cardiopulmonary cause. Snubber hypoxemia represents true 12-26-2019 [facility] ([facility]) hypoxemia or artifact, and whether hypoxemia is due Snubber with end-tidal CO2 monitoring 12-26-2019 [facility] ([facility]) (EtCO2) may help to determine if the finding of Snubber this represents true hypoxemia 12-26-2019 [facility] ([facility]) or technical artifact. An in-lab sleep study Snubber majority of the study [facility] ([facility]) demonstrating oximetry below 88%. It is uncertain if Snubber 3. Hypoxemia was noted, even 12-26-2019 [facility] ([facility]) in the absence of respiratory events, with the Snubber suspected. 12-26-2019 [facility] ([facility]) Snubber ; Fax: 0 12-26-2019 [facility] ([facility]) Snubber observed in the supine [facility] ([facility]) position. Snubber only be measured on an [facility] ([facility]) in-laboratory polysomnogram. The patient was not Snubber apnea as HSAT does not measure 12-26-2019 [facility] ([facility]) certain types of respiratory events that can Snubber 1. This study neither confirms 12-26-2019 [facility] ([facility]) nor refutes a diagnosis of obstructive sleep Snubber IMPRESSION/RECOMMENDATIONS: 12-26-2019 [facility] ([facility]) Snubber Sleep Disorder, Unspecified 12-26-2019 [facility] ([facility]) [G47.9] Snubber Primary Snoring [R06.83] 0 12-26-2019 [facility] ([facility]) Snubber Sleep Related Hypoxia [G47.34] 12-26-2019 [facility] ([facility]) Snubber ICSD DIAGNOSIS: 12-26-2019 [facility] ([facility]) Snubber The average heart rate was 76 12-26-2019 [place] [address]) bpm with a range of 31 bpm to 112 bpm. Snubber ECG DATA: 12-26-2019 [facility] ([facility]) Snubber Total 407.0 min 3.7 2019 [facility] ([facility]) Snubber Off-Supine 407.0 min 3.7 0 12-26-2019 [facility] ([facility]) Snubber Supine 0.0 min -- 12-26-19 [facility] ([facility]) Snubber Time ELIAS/AHI 12-26-2019 [facility] ([facility]) Snubber recording time). 0 [facility] ([facility]) Snubber equal to 4% oxygen 020 [facility] ([facility]) desaturation from pre-event baseline. Snubber minutes at oxygen saturation 12-26-2019 [facility] ([facility]) measured less than 90% (93.9% of recording time) Snubber 86.0%, with a minimum oxygen 12-26-2019 [facility] ([facility]) saturation of 82.0%. The patient spent 382.1 Snubber per hour of study time. The 12-26-2019 [facility] ([facility]) mean oxygen saturation during the study was Snubber central) and 20 hypopneas. The 12-26-2019 [facility] ([facility]) respiratory event index (ELIAS) was 3.7 events Snubber these events, the total number 12-26-2019 [facility] ([facility]) of apneas was 5 (2 obstructive, 0 mixed, and 3 Snubber recording. Snoring was noted. 12-26-2019 [facility] ([facility]) There was a total of 25 respiratory events. Of Snubber [facility] Sleep [facility] ([facility]) [facility] Snubber The study started at 00:04:00 12-26-2019 [facility] ([facility]) and ended at 06:50:48 and the total recording Snubber Home Sleep Apnea Test (HSAT) 12-26-2019 [facility] ([facility]) Study Report Snubber RESPIRATORY DATA: 12-26-19 [facility] ([facility]) Snubber the =30% drop in signal [facility] ([facility]) excursion is =10 seconds. There is a greater than or Snubber and 360.4 minutes at oxygen 12-26-2019 [facility] ([facility]) saturation measured at or less than 88% (88.6% of cnpn on 2019 CNPN Telephone ([facility] Normal 2019 [place] [facility] JAZLYN GARZON ([id number]) 1965 [facility] Time Provider Department ([id number]) 12/25/19 HUGO NAVA During your visit today, we recorded the following informati on about you: Yue Vital LPN 2019 9:38 AM Signed Pt calling for home sleep study results. Yue Nava MD 2019 9:40 AM Signed Those take several weeks. Does not look like it is back yet. Sudha Marshalklhaily MARRERO 2019 11:27 AM Signed Patient notified. Allergies As of Date: 2019 Noted Allergy Reaction CODEINE 09/27/2014 8 - GI Upset 11 - Vomiting PERCOCET (OXYCODONE-ACETAMINOPHEN)07/17/2011 11 - Vomiting SOLUMEDROL (METHYLPREDNISOLONE SO*01/22/2014 1 - Mental Stat us Change Comments: Made her rageful VICODIN (HYDROCODONE-ACETAMINOPHE*07/17/2011 11 - Vomiting COMBIPATCH (ESTRADIOL-NORETHINDRO*10/26/2016 5 - Intolerance Comments: feels wired, muscles hurt, lips/mouth burn, feels like asthma flaring, nausea, dizziness. METFORMIN 10/28/2017 14 - Other: See Comments Comments: Myalgias. PEPCID (FAMOTIDINE (PF)) 07/07/2016 14 - Other: See Comments Comments: Dry eyes, mouth, rash, itching, anxiety TAPAZOLE (METHIMAZOLE) 10/14/2005 4 - Hives Date Reviewed: 08/21/2019 Reviewed by: Ofe ([facility]) Yoel - Fully Assessed Reason for Visit: results home sleep study [Other] Prescriptions as of 2019 Sig: SYNTHROID 137 MCG TABLET Take by mouth 8 tabs daily / * LANCETS 28 GAUGE USE FOUR TIMES DAILY DIREC* BLOOD SUGAR DIAGNOSTIC STRIPS TEST four times a day BLOOD-GLUCOSE METER KIT 1 Each as needed. BLOOD-GLUCOSE METER KIT 1 Each as needed. Problem List As Of Date 2019 Noted Resolved Postablative hypothyroidism [E89.0] 04/06/2006 More... Excessive or frequent menstruation [N92.0] 01/05/20072011 Irregular menstrual cycle [N92.6] 01/05/2007 10/06/2011 Unspecified aftercare [Z51.89] 05/26/2011 10/06/2011 Abdominal pain, chronic, right upper quadrant [* 10/06/2011 Post-menopause [Z78.0] 10/21/2011 03/18/2015 More... URI (upper respiratory infection) [J06.9] 05/14/2013 015 More... Pneumonia [J18.9] 05/14/2013 07/11/2014 More... More... More... More... More... Adrenal disorder [E27.9] 05/24/2013 07/11/2014 hx of low vitamin D [E55.9] 06/01/2013 Panic disorder with agoraphobia [F40.01] 07/10/2013 Chronic fatigue fibromyalgia syndrome [R53.82, *07/12/2013 Marital conflict [Z63.0] 08/30/2013 07/11/2014 Blood pressure elevated without history of HTN *09/06/2014 Impaired glucose tolerance [R73.02] 09/06/2014 More... Ovarian cyst [N83.209] 09/24/2014 03/18/2015 SVT (supraventricular tachycardia) (HCC) [I47.1]09/27/2014 Delayed emergence from anesthesia [T88.59XA] 09/27/201409/25 On home oxygen therapy [Z99.81] 09/27/2014 12/13/2015 PTSD (post-traumatic stress disorder) [F43.10] 11/01/2014 Attention deficit hyperactivity disorder (ADHD)*11/08/2014 Recurrent major depressive disorder, in partial*07/09/2015 Encounter for screening mammogram for malignant*12/12/2015 0 11/09/2016 menopause age 43 [N95.1] Tobacco use [Z72.0] Postmenopausal HRT (hormone replacement therapy*12/13/2015 0 11/09/2016 Weight gain [R63.5] 10/19/2017 GERD without esophagitis [K21.9] 05/12/2017 More... Simple chronic bronchitis (HCC) [J41.0] 12/01/2017 More... Irritable bowel syndrome with diarrhea [K58.0] 12/14/2017 Systemic lupus erythematosus (HCC) [M32.9] 02/14/2018 Burning sensation of mouth [R20.8] 02/16/2018 Burning sensation of skin [R20.8] 02/16/2018 Sleep difficulties [G47.9] 02/16/2018 Mitral valve prolapse [I34.1] 02/23/2018 More... Screening for malignant neoplasm of the cervix *06/20/2018 Visit for pelvic exam [Z01.419] 06/20/2018 Encounter for screening mammogram for malignant*06/20/2018 Estrogen deficiency [E28.39] 06/20/2018 Adrenal adenoma, left [D35.02] 08/25/2018 More... Encounter Status:Closed by SUDHA PINK LPN on 12/25/19 progress on 2019-11 PROGRESS HNO ID: [id number] Normal 12-18-2019 [facility] Author: Debra Jasso [facility] ([id number]) Service: ? Author Type: ? Type: Progress Notes Filed: 12/18/2019 6:39 PM Note Text: Sleep Study Check-In Documentation Date: December 18, 2019 Name: Jazlyn Garzon Comments: HST was returned in working order with all sleep q uestionnaires Debra Jasso [facility] progress on 2019-11 PROGRESS HNO ID: [id number] Normal 12-12-2019 [facility] Author: Carmen Jenkins [place] ([id number]) Service: ? Author Type: ? 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 Author Type: Physician Type: Progress Notes Filed: 12/18/2019 6:39 PM Note Text: December 12, 2019 Standing PSG Orders signed in the last 90 days None Future PSG Orders signed in the last 90 days None All Prior Sleep Studies (past 365 days) Some values may be hidden. Unless noted otherwise, only the newest values recorded on each date are displayed. Sleep Studies HOME SLEEP APNEA TEST (HSAT) Future Expected: Expires: BMI Readings from Last 2 Encounters: 06/19/19 : 36.76 kg/m? 06/14/19 : 36.95 kg/m? PAST MEDICAL HISTORY Diagnosis Date - Abdominal pain, chronic, right upper quadrant - Asthma As a baby, then I outgrew it. - Cystocele, midline 05/13/2009 - Delayed emergence from anesthesia 09/27/2014 - Depression - Excessive or frequent menstruation Heavy periods - HSDD 10/21/2011 - Hypothyroidism should be on FRANCESCO synthroid. - Irregular menstrual cycle Irregular periods - menopause age 43 2009 in 2012 FSH 47 - Moderate dysplasia of cervix 2001 - Parent-child conflict 03/07/2013 - PMH - PAST MEDICAL HISTORY OF thyroid ablation/hypothyroid - Postmenopausal HRT (hormone replacement therapy) 12/13/2015 in 2014 took femHRT cried 11/2015 offer climara/prometrium - Rectocele 05/13/2009 - SVT (supraventricular tachycardia) (HCC) - Syncope 05/14/2013 -Reported that she had one episode of syncope at the OSH. -H ad the episode when she stood up. -No urinary incontinence or jerki ng movements. -Never had syncope episode before. -Last Echo stress test fo r her chest pain was in 2011 (normal) Plan: -Repeat the Echo: normal - T he left ventricle is normal in size. Left ventricular systolic funct ion is normal. EF = 63 ? 5% (2D biplane) - The right ventricle is normal in size. Right ventricular systolic function is normal. - There are no sign ificant valvular abnormalities. - Prior echocardiogram performed on 11/10/11 (stress echo). No significant change. - Tele - Tobacco use - Weight gain The medical record was reviewed to determine if the proposed sleep study conforms to the AASM Practice Parameters for the Indications for Polysomnography and Related Procedures, or if the sleep stud y is indicated for other reasons. Indications for study: ANDRESSA suspected with comorbid medical or sleep disorders: Yjvefirx-vh-lzdadb pulmonary disease Sleep study to be performed: Home Sleep Apnea Test (HSAT) Special instructions: None-follow laboratory protocol Petey Munguia Poly-T ----- Patient is adamant about having the HSAT and will not comple te and in lab sleep test. Best to move forward with the HSAT vs no test at all. I have read the above protocol, edited as needed, and agree to the plan. Dalton Valdez III, PhD 10:30 AM, 12/12/2019 PROGRESS HNO ID: [id number] Normal 12-12-2019 [facility] Author: Carmen [place] ([id number]) Service: ? Author Type: ? Type: Progress Notes Filed: 12/18/2019 6:39 PM Note Text: Spoke with Ben Michael. He stated patient is okay to have HSAT because she only needs it for diagnostic purposes for her physician to have on record. PROGRESS HNO ID: [id number] [place] 12-12-2019 [facility] Author: Carmen [place] ([id number]) Service: ? Author Type: ? Type: Progress Notes Filed: 12/18/2019 6:39 PM Note Text: December 12, 2019 An order has been received for Home Sleep Apnea Test (HSAT) from brittany Rodriguez. [facility] Health System Staff. Visit prep complete. Comments :No The sleep study is scheduled for 12/12. Insurance: Payor: [facility] / Plan: [facility] ICAID / Product Type: Medicaid / Payor/Plan Subscr Sex Relation Sub. Ins. ID Effective Gr oup Num 1. CAREPAUL DE* JAZLYN GARZON Antonieta 1965 Female Self [id number] 05/27/16 [facility] [address] Carmen Jenkins progress on 2019-11 PROGRESS HNO ID: [id number] [place] 12-11-2019 [facility] Author: Antonieta Esqueda (Gregorio) Marcial Dixon ([id number]) Service: ? Author Type: Physician Digestion Operator Type: Progress Notes Filed: 12/11/2019 9:12 AM Note Text: LMP 03/10/2010 This Team Access Model visit is a phone encounter. It requir ed patient-provider interaction for the medical decision making as documented below. Could not get ZOOM to open. Patient was offered a virtual/telemedicine appointment in eu of an office visit due to recommendations to reduce patient exposu re to COVID-19. Patient is aware of limitations of performing the visit without a face to face visit in the office setting and agrees. 8:38 AM 53 year old female with c/o swollen all over. 2/4+ pitting but no change in weight, no SOB, cough. Believes r/t to thyroid. Very sensitive to changes. Feels hormones make thyroid drop. Free levels in normal range but TSH mildly elevated from las t Seeing Treva in [place]: satisfied with care: thinks low te stosterone Seeing Dr. Marissa Ballard: told her not in menopause, PCOS. Warn ed testosterone will cause stroke. Hormonal labs have all been WNL in 2019. Component Latest Ref Rng AND Units 07/21/2019 08/16/2019201912/04/2019 WBC 3.70 - 11.00 k/uL 11.91 (H) RBC 3.90 - 5.20 m/uL 4.87 Hemoglobin 11.5 - 15.5 g/dL 15.4 Hematocrit 36.0 - 46.0 % 46.8 (H) MCV 80.0 - 100.0 fL 96.1 MCH 26.0 - 34.0 pG 31.6 MCHC 30.5 - 36.0 g/dL 32.9 RDW-CV 11.5 - 15.0 % 12.4 Platelet Count 150 - 400 k/uL 302 MPV 9.0 - 12.7 fL 9.7 Neut% % 58.5 Abs Neut (ANC) 1.45 - 7.50 k/uL 6.96 Lymph% % 30.1 Abs Lymph 1.00 - 4.00 k/uL 3.59 Jersey% % 8.5 Abs [place] <0.87 k/uL 1.01 (H) Eosin% % 2.4 Abs Eosin <0.46 k/uL 0.29 Baso% % 0.5 Abs Baso <0.11 k/uL 0.06 Nucleated Reds 0 /100 WBC 0.0 Absolute nRBC <0.01 k/uL <0.01 Diff Type Auto Diff Testosterone 8 - 60 ng/dL 22 23 20 Testosterone Free 0.06 - 0.92 ng/dL 0.22 0.25 0.22 Hemoglobin A1C 4.3 - 5.6 % 6.0 (H) Estimated Average Glucose mg/dL 126 Estradiol 17B pg/mL 46 <25 <25 <25 Estrone pg/mL 25.5 23.7 24.8 18.4 Progesterone ng/mL 0.3 0.4 0.2 Free T3 2.3 - 4.1 pg/mL 2.8 HISTORIES FAMILY HISTORY Problem Relation Age of Onset - Diabetes Mother Type 2 stroke - Colon Cancer Father age 64 [place] - Diabetes Father Type 2 - Hypertension Father - Coronary Artery Disease Father Hx of [place] - Thyroid Sister hx of parathyroid disease/ hx of fibroids - other (healthy) Brother - other (healthy) Brother - Allergies Daughter - other (healthy) Daughter - other (healthy) Son - other (healthy) Son - other (healthy) Son - other (healthy) Son - Colon Cancer Paternal Aunt x5 - Colon Cancer Paternal Uncle x8 PAST MEDICAL HISTORY Diagnosis Date - Abdominal pain, chronic, right upper quadrant - Asthma As a baby, then I outgrew it. - Cystocele, midline 05/13/2009 - Delayed emergence from anesthesia 09/27/2014 - Depression - Excessive or frequent menstruation Heavy periods - HSDD 10/21/2011 - Hypothyroidism should be on FRANCESCO synthroid. - Irregular menstrual cycle Irregular periods - menopause age 43 2009 in 2012 FSH 47 - Moderate dysplasia of cervix 2001 - Parent-child conflict 03/07/2013 - PMH - PAST MEDICAL HISTORY OF thyroid ablation/hypothyroid - Postmenopausal HRT (hormone replacement therapy) 12/13/2015 in 2014 took femHRT cried 11/2015 offer climara/prometrium - Rectocele 05/13/2009 - SVT (supraventricular tachycardia) (HCC) - Syncope 05/14/2013 -Reported that she had one episode of syncope at the OSH. -H ad the episode when she stood up. -No urinary incontinence or jerki ng movements. -Never had syncope episode before. -Last Echo stress test fo r her chest pain was in 2011 (normal) Plan: -Repeat the Echo: normal - T he left ventricle is normal in size. Left ventricular systolic funct ion is normal. EF = 63 ? 5% (2D biplane) - The right ventricle is normal in size. Right ventricular systolic function is normal. - There are no sign ificant valvular abnormalities. - Prior echocardiogram performed on 11/10/11 (stress echo). No significant change. - Tele - Tobacco use - Weight gain PAST SURGICAL HISTORY Procedure Laterality Date - CERVIX UTERI CONIZA LP ELCTRO EXCI 2001 LEEP-Cervix - COLONOSCOPY 04/2017 says nl - EGD W/O OR W/BRUSH/WASH 01/22/2014,2009 EGD - LAPAROSCOPIC CHOLEYCYSTECTOMY 05/19/2011 - LIGATE FALLOPIAN TUBE 2003 Tubal ligation - PAST SURGICAL HISTORY OF 1998 tubal - PAST SURGICAL HISTORY OF 2001 thyroid ablation - REMOVAL OF OVARY(S) 09/2014 laparoscopic left, CW, umbilical/upper abdominal adhesions s een benign Social History Tobacco Use - Smoking status: Current Every Day Smoker Packs/day: 0.50 Types: Cigarettes Start date: 1985 - Smokeless tobacco: Never Used - Tobacco comment: Has quit intermittently, And I'm working on it now. 1st AM cigarette 10-15 minutes after awake. Most desired is that one, or last of day before bed. Prior 8 month quits, resumed after p regnancies completed. TO Substance Use Topics - Alcohol use: No Frequency: Never Drinks per session: Patient refused Binge frequency: Never - Drug use: No ACTIVE PROBLEM LIST Postablative Hypothyroidism hx of low vitamin D Panic Disorder With Agoraphobia Chronic Fatigue Fibromyalgia Syndrome Blood Pressure Elevated Without History of Htn Impaired Glucose Tolerance Svt (Supraventricular Tachycardia) (Hcc) Ptsd (Post-Traumatic Stress Disorder) Attention Deficit Hyperactivity Disorder (Adhd), Combined Ty pe Recurrent Major Depressive Disorder, in Partial Remission (H cc) menopause age 43 Tobacco Use Gerd Without Esophagitis Simple Chronic Bronchitis (Hcc) Irritable Bowel Syndrome With Diarrhea Systemic Lupus Erythematosus (Hcc) Burning Sensation of Mouth Burning Sensation of Skin Sleep Difficulties Mitral Valve Prolapse Screening for Malignant Neoplasm of The Cervix Visit for Pelvic Exam Encounter for Screening Mammogram for Malignant Neoplasm of Breast Estrogen Deficiency Adrenal Adenoma, Left Current Outpatient Medications Medication Sig Dispense Refill - SYNTHROID 137 mcg tablet Take 1 tablet by mouth once daily . 30 tablet 5 - lancets (FREESTYLE LANCETS) 28 gauge misc USE FOUR TIMES D AILY DIRECTED 400 Each 3 - blood sugar diagnostic (FREESTYLE TEST) test strip TEST fo ur times a day 400 Strip 3 - Blood-Glucose Meter (FREESTYLE LITE METER) monitoring kit 1 Each as needed. 1 Each 0 - Blood-Glucose Meter (FREESTYLE LITE METER) monitoring kit 1 Each as needed. 1 Each 0 No current facility-administered medications for this visit. HEPATITIS C SCREENING due on 12/26/1983 HIV SCREENING due on 12/26/1983 TWO PNEUMOVAX 5 YEARS APART PRIOR TO AGE 65(1) due on 1984 ADULT PREVNAR-13 due on 1984 SHINGRIX VACCINE(1 of 2) due on 12/26/2015 EXAM: LMP 03/10/2010 Pleasant adult owman in no acute distress. Alert and oriente d all spheres. Normal affect and cognition. Speech normal. No deficits to l earning or comprehension. Speaking in full sentences easily. ASSESSMENT/PLAN: 1. Swelling of both lower extremities - ICD9: 729.81, ICD10: M79.89 (primary diagnosis) May be venous stasis 2. Postablative hypothyroidism - ICD9: 244.1, ICD10: E89.0 - Instructed patient on importance of taking on an empty sto mach either first thing in the morning or at bedtime. Patient very ensitive to changes. Trial mild increase with goal to keep levels 0-2.0 Recheck in 6 weeks. - SYNTHROID 137 MCG TABLET - TSH BLD - T4 FREE/FREE THYROX 3. Elevated hemoglobin (HCC) - ICD9: 282.7, ICD10: D58.2 encouraged to stop smoking again. Doubt small dose testosterone would be critical but could el iminate risk with smoking and then recheck. Antonieta Ceja PA-C Plan: 9:03 AM 25min call See orders and/or patient instructions. Patient ( or Edgar n) expressed understanding of instructions on review. Antonieta Ceja PA-C us female pelvis transvag on 2019-12-04 US FEMALE PELVIS * * *Final Report* * * Normal 12-04-2019 [facility] TRANSVAG DATE OF EXAM: Dec 04 2019 7:40AM [place] ([id number]) WRU 1060 - US FEMALE PELVIS TRANSVAG / PROCEDURE REASON: Thickened endometrium * * * * Physician Interpretation * * * * PELVIC ULTRASOUND HISTORY: Thickened endometrium , 53 years old. Patient repor ts postmenopausal status for approximately 10 years TECHNIQUE: Transvaginal with limited transabdominal pelvic u ltrasound. Grayscale and color Doppler images. Images were obtained and stored in a permanent archive. COMPARISON: 09/28/2019 RESULT: Uterus size: 6.8 x 4.8 x 3.2 cm -Myometrium: Mildly heterogeneous. No fibroids seen. -Endometrial echo complex: 0.5 cm. Right ovary: 2.6 x 1.6 x 2 cm Right ovary cyst measuring up to 10 mm is minimally larger t leyva previously. Arterial and venous flow is present on color Dop pler imaging with normal spectral waveforms. Left ovary is surgically absent. Pelvis free fluid: None. . - IMPRESSION: The endometrial stripe measures 5 mm in thickness, similar t o the prior exam. A 10 mm right ovary cyst is minimally larger than previously . Six-month follow-up pelvic ultrasound is recommended. Audiovisual Technician: JEANNA Transcribe Date/Time: Dec 04 2019 7:53A Dictated by : HAZEL TSE MD This examination was interpreted and the report reviewed and electronically signed by: HAZEL TSE MD on Dec 04 2019 7:55AM EST [id number] tsh on 2019-12-04 TSH Qn 3.940 0.270-4.200 uU/mL Normal 12-04-2019 [facility] ([id number]) Comment: Performed By: #### DHEAS, TD, PROG, E2 #### [facility] [address], [place] [address] #### EST #### [facility] [address] [place] [phone] testosterone, tot/fr on 2019-12-04 Testosterone [Mass/Vol] 20 8-60 ng/dL Normal 2019 [facility] ([id number]) Comment: Result Comment: (NOTE) ADDITIONA L INFORMATION Testing performed by Liquid Chromatography-Tandem Mass Spectrometry (LC-MS/MS). This test was developed and its performance characteristics determined by [facility] in a manner consistent with CLIA requirements. This test has not been cleared or approved by the U.S. Food and Drug Admin istration. Performed By: #### TFTEST ## ## [facility] [address] [place] [address] Testosterone, Free 0.22 0.06-0.92 ng/dL Normal 12-04-2019 [facility] ([id number]) Comment: Result Comment: (NOTE) ADDITIONA L INFORMATION Testing performed by [facility]. This test was developed and its performance characteristics determined by [facility] in a manner consistent with CLIA requirements. This test has not been cleared or approved by the U.S. Food and Drug Admin istration. Performed By: #### TFTEST ## ## [facility] [address] [place] [address] progress on 2019-11 PROGRESS HNO ID: [id number] Normal 12-04-2019 [facility] Author: Mireya Leon) Renae [place] ([id number]) Service: ? Author Type: Accounting Tutor Type: Progress Notes Filed: 12/04/2019 7:41 AM Note Text: Radiology Service Progress Note PATIENT NAME: Jazlyn Garzon DATE OF SERVICE: December 04, 2019 TIME: 7:41 AM PATIENT IDENTITY VERIFICATION COMPLETED USING TWO (2) IDENTI FIERS: Name and Date of confirmed by patient verbally. FALL SCREENING: Has the patient had 2 falls in the last year or 1 fall with injury or currently using an Ambulatory Assistive Devic e (Walker, Cane, Wheelchair, Crutches, etc.)? No PATIENT GENDER DATA: Female. status: : No status: N/A PATIENT RELEVANT IMPLANT DATA REVIEWED: Not Applicable RADIOLOGY DEPARTMENT: Ultrasound PERIPHERAL IV DATA: Not applicable SIGNED BY: MIREYA LANE RDMS RVT December 04, 2019 7:41 AM progesterone on Progesterone 0.2 ng/mL Normal 12-04-2019 [facility] ([id number]) Comment: Result Comment: Menstrual Cy soy Progesterone Reference Ranges: Follicular:<1.0 ng/mL Ovulation:<12.1 ng/mL Luteal:1.8 to 23.9 ng/mL Progesterone Refer ence Ranges vary by gestational period: First Trimester:11.0 to 44.3 ng/mL Second Trimester:25.4 to >60 .0 ng/mL Third Trimester:58.7 to >60. 0 ng/mL Post menopausal Progesterone :<0.5 ng/mL Reference: 1. Progesterone ( Progesterone III) [package insert V 1.0 Mexican]. [employer], [place], [place]. January 2015. Performed By: #### DHEAS, TD, PROG, E2 #### [facility] [place] [phone] #### EST #### [facility] [address], [place] [id number] [phone] lipid panel, basic on 2019-12-04 Cholesterol [Mass/Vol] 125 <200 mg/dL Normal 020 [facility] ([id number]) Comment: Result Comment: <200 mg/dL, Desirable 200-239 mg/dL, Borderline hi gh >239 mg/dL, High Performed By: #### DHEAS, TD, PROG, E2 #### [facility] [place] [phone] #### EST #### [facility] [address] [place] [phone] Cholesterol in HDL [Mass/Vol] 37 >39 mg/dL Low 12-04-2019 [facility] ([id number]) Comment: Result Comment: 40-59 mg/dL, Acceptable >59 mg/dL, High: Negative ri sk factor for coronary heart disease <40 mg/dL, Low: Positive ris k factor for coronary heart disease Performed By: #### DHEAS, TD, PROG, E2 #### [place] [phone] #### EST #### [facility] [address], [place] [id number] [phone] Cholesterol in LDL 68 <100 mg/dL Normal 12-04-2019 [facility] [Mass/Vol] [place] ([id number]) Comment: Result Comment: <100 mg/dL, Optimal 100-129 mg/dL, Near optimal/ above optimal 130-159 mg/dL, Borderline hi gh 160-189 mg/dL, High >189 mg/dL, Very high Secondary prevention optimal LDL Cholesterol levels are recommended to be < 70 mg/dL Performed By: #### DHEAS, TD, PROG, E2 #### [facility] [address] [place] [address] #### EST #### [facility] [address] [place] [address] [phone] Fasting Time 12 hrs Normal 12-04-2019 [facility] ([id number]) Comment: Performed By: #### DHEAS, TD, PROG, E2 #### [facility] [address] [place] [phone] #### EST #### [facility] [address] [place] [address] [phone] LDL:HDL Ratio 1.84 <2.54 Normal 12-04-2019 [facility] ([id number]) Comment: Result Comment: Reference: 1. National Cholesterol Educ ation Program ATP III Guideline At-A-Glance Quick Desk Reference: National Heart, Lung, and Blood Dana. National Institutes of Health. 2001: NIH Publication No. 01-3305. 2. An International Atherosc lerosis Society position paper: global recommendations for the management of dyslipidemia: executive summary, Atherosclerosis. 2014: 232(2):410-413. Performed By: #### DHEAS, TD, PROG, E2 #### [facility] [address] [place] [address] #### EST #### [facility] [address] [place] [address] [phone] Non HDL Cholesterol 88 <130 mg/dL Normal 12-04-2019 [facility] ([id number]) Comment: Result Comment: <130 mg/dL, Optimal 130-159 mg/dL, Near optimal/ above optimal 160-189 mg/dL, Borderline hi gh 190-219 mg/dL, High >219 mg/dL, Very high Secondary prevention optimal non HDL Cholesterol levels are recommended to be < 100 mg/dL Performed By: #### DHEAS, TD, PROG, E2 #### [place] [address] #### EST #### [facility] [address] [place] [address] [phone] TC:HDL Ratio 3.38 <5.10 Normal 12-04-2019 [facility] ([id number]) Comment: Performed By: #### DHEAS, TD, PROG, E2 #### [place] [phone] #### EST #### [place] [address] [phone] Triglyceride [Mass/Vol] 102 <150 mg/dL Normal 2019 [facility] ([id number]) Comment: Result Comment: <150 mg/dL, Normal 150-199 mg/dL, Borderline hi gh 200-499 mg/dL, High >499 mg/dL, Very high Performed By: #### DHEAS, TD, PROG, E2 #### [place] [address] #### EST #### [facility] [address] [place] [phone] VLDL Cholesterol 20 <30 mg/dL Normal 12-04-2019 [facility] ([id number]) Comment: Performed By: #### DHEAS, TD, PROG, E2 #### [place] [address] #### EST #### [facility] [address] [place], [place] [id number] [phone] hemoglobin a1c on HbA1c (Bld) [Mass fraction] 126 mg/dL Normal [facility] (72335) Comment: Result Comment: eAG: (Estima geoff average glucose) is a calculated value from HgbA1c and is customer development representative of the average blood glucose level in the last 2-3 month period. Performed By: #### DHEAS, TD, PROG, E2 #### [facility] [address], [place] [address] #### EST #### [facility] [address] [place] [address] [phone] HbA1c (Bld) [Mass fraction] 6.0 4.3-5.6 % High [facility] (68526) Comment: Result Comment: [place] Antonette betes Association guidelines indicate that patients with HgbA1c in the range 5.7-6.4% are at increased risk for development of diabetes, and intervention by lifestyle modification may be beneficial. HgbA1c greater o r equal to 6.5% is considered diagnostic of diabetes. Performed By: #### DHEAS, TD, PROG, E2 #### [facility] [address] [place] [phone] #### EST #### [facility] [address] [place] [address] [phone] free t4 on Free T4 [Mass/Vol] 1.2 0.9-1.7 ng/dL Normal 12-04-2019 [facility] ([id number]) Comment: Performed By: #### FREET3, F T4 ####[facility] [address] [place], [place] [phone] free t3 on Free T3 [Mass/Vol] 2.8 2.3-4.1 pg/mL Normal 12-04-2019 [facility] (75414) Comment: Performed By: #### FREET3, F T4 #### [facility] [address] [place] [address] estrone on Estrone 18.4 pg/mL Normal 12-04-2019 [facility] (08254) Comment: Result Comment: (NOTE) Females: Pre-menopausal: Early follic ular <150.0 pg/mL Pre-menopausal: Late follicu lar 100.0-250.0 pg/mL Pre-menopausal: Luteal <200. 0 pg/mL Post-menopausal 3.0-32.0 pg/ mL REFERENCE INTERVAL: Estrone by TMS Access complete set of age- and/or gender-specific reference intervals for this test in t [facility] Test Directory ([employer]). Test developed and character istics determined by [employer]. See Compliance Statement B: [employer]/CS Performed By: [employer] [facility] [address] [place] [address] Support Services Tech: Wilner Rosa MD, MS Performed By: #### DHEAS, TD, PROG, E2 #### [facility] [address] [place] [address] #### EST #### [employer] [address] [place] [phone] estradiol-17b on 13-12-09 Estradiol-17B <25 Normal 12-04-2019 [facility] ([id number]) Comment: Result Comment: This test is not suitable for patients receiving treatment with the drug Fulvestrant (Faslodex). The drug causes an interference leading to falsely elevated estradiol results. Menstrual cycle Estradiol re ference ranges: Follicular : < 234 pg/mL Ovulation : 41 to 398 pg/mL Luteal : < 342 pg/mL Estradiol referenc e ranges vary by gestational period: First trimester : 154 to 324 3 pg/mL Second trimester : 1561 TO 2 1280 pg/mL Third trimester : 8285 to >3 0000 pg/mL Post-menopausal Estradiol re ference range: < 41 pg/mL Reference: 1. Estradiol - E2 (Estradiol III) [package insert V 3.0 Mexican]. [employer], [place], [place], September 2015. Performed By: #### DHEAS, TD, PROG, E2 #### [facility] [address] [place], [place] [address] #### EST #### [facility] [address] [place] [address] [phone] comp metabolic panel on 2019-12-04 Albumin [Mass/Vol] 4.0 3.9-4.9 g/dL Normal 12-04-2019 [facility] (70321) Comment: Performed By: #### DHEAS, TD, PROG, E2 #### [place] [phone] #### EST #### [facility] [address] [place] [address] [phone] ALP [Catalytic activity/Vol] 82 34-123 U/L Normal 0 12-04-2019 [facility] (28173) Comment: Performed By: #### DHEAS, TD, PROG, E2 #### [place] [phone] #### EST #### [facility] [address] [place], [place] [id number] [phone] ALT [Catalytic activity/Vol] 24 7-38 U/L Normal 0 12-04-2019 [facility] (81703) Comment: Performed By: #### DHEAS, TD, PROG, E2 #### [place] [phone] #### EST #### [facility] [address] [place], [place] [id number] [phone] Anion gap [Moles/Vol] 9 9-18 mmol/L Normal 12-04-19 [facility] (03161) Comment: Performed By: #### DHEAS, TD, PROG, E2 #### [place] [address] #### EST #### [facility] [address] [place], [place] [id number] [phone] AST [Catalytic activity/Vol] 16 13-35 U/L Normal 0 12-04-2019 [facility] (93778) Comment: Performed By: #### DHEAS, TD, PROG, E2 #### [facility] [address] [place] [phone] #### EST #### [facility] [address] [place] [address] [phone] Bilirubin [Mass/Vol] <0.2 0.2-1.3 mg/dL Low 0 [facility] (29442) Comment: Performed By: #### DHEAS, TD, PROG, E2 #### [facility] [place] [phone] #### EST #### [facility] [address] [place] [address] [phone] Calcium [Mass/Vol] 9.4 8.5-10.2 mg/dL Normal 12-04-2019 [facility] (36908) Comment: Performed By: #### DHEAS, TD, PROG, E2 #### [place] [phone] #### EST #### [facility] [address] [place] [address] [phone] Chloride [Moles/Vol] 103 97-105 mmol/L Normal 0 [facility] (78455) Comment: Performed By: #### DHEAS, TD, PROG, E2 #### [place] [phone] #### EST #### [facility] [address] [place] [address] [phone] CO2 [Moles/Vol] 26 22-30 mmol/L Normal 12-04-2019 [facility] (99533) Comment: Performed By: #### DHEAS, TD, PROG, E2 #### [place] [phone] #### EST #### [facility] [address] [place] [address] [phone] Creatinine [Mass/Vol] 0.79 0.58-0.96 mg/dL Normal 12-04-19 20 [facility] (01337) Comment: Performed By: #### DHEAS, TD, PROG, E2 #### [facility] [address] [place] [address] #### EST #### [facility] [address] [place] [address] [phone] eGFR- Amer. >60 Normal 12-04-2019 [facility] (16549) Comment: Performed By: #### DHEAS, TD, PROG, E2 #### [facility] [address] [place] [address] #### EST #### [facility] [address] [place] [address] [phone] GFR/1.73 sq M predicted >60 mL/min/{1.73_m2} Normal 12-04-2019 [facility] among non-blacks [facility] ([id number]) (S/P/Bld) [Vol rate/Area] Comment: Result Comment: eGFR (Estima geoff GFR) Units of measure: mL/min/1.73 meters squared eGFR is derived from the ree xpressed MDRD Study equation using the following parameters: serum creatinine, age, gender and race. The creatinine assay has been calibrated to be traceable to IDMS. An eGFR <60 mL/min/1.73m2 fo r >3 months is consistent with chronic kidney disease. Refer to KDOQI guidelines for clinical interpretation. In patients with unstable re nal function, e.g. those with acute kidney injury, the eGFR may not accurately reflect actual GFR. Performed By: #### DHEAS, TD, PROG, E2 #### [facility] [address] [place] [phone] #### EST #### [facility] [address] [place] [address] [phone] Glucose [Mass/Vol] 141 74-99 mg/dL High 12-04-2019 [facility] (59923) Comment: Result Comment: The [place] Diabetes Association (ADA) provides guidance for cutoff values for fasting glucose and random glucose. The ADA defines fasting as no caloric intake for at least 8 hours. Fas ting plasma glucose results between 100 to 125 mg/dL indicate increased risk for diabetes (prediabetes). Fasting plasma glucose resul ts greater than or equal to 126 mg/dL meet the criteria for diagnosis of diabetes. In the absence of unequivocal hyperglycemia, results should be confirmed by repeat testing. In a patient with classic s ymptoms of hyperglycemia or hyperglycemic crisis, random plasma glucose results greater than or equal to 200 mg/dL meet the criteria for diagnosis of diabetes. Reference: Standards of [facility] Care in Diabetes 2016, [place] Diabetes Association. Diabetes Care. 2016.39(Suppl 1). Performed By: #### DHEAS, TD, PROG, E2 #### [facility] [place] [phone] #### EST #### [facility] [address] [place] [address] [phone] Potassium [Moles/Vol] 3.7 3.7-5.1 mmol/L Normal 12-04-19 [facility] (79023) Comment: Performed By: #### DHEAS, TD, PROG, E2 #### [facility] [address] [place] [phone] #### EST #### [facility] [address] [place] [address] [phone] Protein [Mass/Vol] 6.6 6.3-8.0 g/dL Normal 12-04-2019 [facility] (31866) Comment: Performed By: #### DHEAS, TD, PROG, E2 #### [facility] [address] [place] [phone] #### EST #### [facility] [address] [place] [address] [phone] Sodium [Moles/Vol] 138 136-144 mmol/L Normal 12-04-2019 [facility] (85765) Comment: Performed By: #### DHEAS, TD, PROG, E2 #### [facility] [place] [phone] #### EST #### [facility] [address] [place] [address] [phone] Urea nitrogen [Mass/Vol] 9 7-21 mg/dL Normal 12-03 [facility] (93902) Comment: Performed By: #### DHEAS, TD, PROG, E2 #### [place] [phone] #### EST #### [facility] [address] [place] [address] [phone] cbc and differential on 2019-12-04 Abs Baso 0.06 <0.11 k/uL Normal 12-04-2019 [facility] ([id number]) Comment: Performed By: #### DHEAS, TD, PROG, E2 #### [place] [phone] #### EST #### [facility] [address] [place] [address] [phone] Abs [place] 1.01 <0.87 k/uL High 12-04-2019 [facility] ([id number]) Comment: Performed By: #### DHEAS, TD, PROG, E2 #### [place] [phone] #### EST #### [facility] [address] [place] [address] [phone] Abs Neut 6.96 1.45-7.50 k/uL Normal 12-04-2019 [facility] ([id number]) Comment: Performed By: #### DHEAS, TD, PROG, E2 #### [place] [phone] #### EST #### [facility] [address] [place] [address] [phone] Absolute nRBC <0.01 <0.01 Normal 12-04-2019 [facility] ([id number]) Comment: Performed By: #### DHEAS, TD, PROG, E2 #### [facility] [address] [place] [phone] #### EST #### [facility] [address] [place] [address] [phone] Basophils/100 WBC (Bld) 0.5 % Normal 2019 [facility] ([id number]) Comment: Performed By: #### DHEAS, TD, PROG, E2 #### [facility] [address] [place] [phone] #### EST #### [facility] [address] [place] [address] [phone] DTYPE Auto Diff Normal 12-04-2019 [facility] ([id number]) Comment: Performed By: #### DHEAS, TD, PROG, E2 #### [facility] [address] [place] [phone] #### EST #### [facility] [address] [place] [address] [phone] Eosinophils (Bld) [#/Vol] 0.29 <0.46 k/uL Normal 11-24 [facility] ([id number]) Comment: Performed By: #### DHEAS, TD, PROG, E2 #### [facility] [address] [place] [phone] #### EST #### [facility] [address] [place] [address] [phone] Eosinophils/100 WBC (Bld) 2.4 % Normal 11-24 [facility] ([id number]) Comment: Performed By: #### DHEAS, TD, PROG, E2 #### [facility] [address] [place] [phone] #### EST #### [facility] [address] [place] [address] [phone] Erythrocyte distribution 12.4 11.5-15.0 % Normal 12-03 [facility] width (RBC) [Ratio] [place] ([id number]) Comment: Performed By: #### DHEAS, TD, PROG, E2 #### [facility] [address] [place] [phone] #### EST #### [facility] [address] [place], [place] [id number] [phone] Hematocrit (Bld) [Volume 46.8 36.0-46.0 % High 12-03 [facility] fraction] [place] ([id number]) Comment: Performed By: #### DHEAS, TD, PROG, E2 #### [facility] [address] [place] [phone] #### EST #### [facility] [address] [place] [address] [phone] Hemoglobin (Bld) 15.4 11.5-15.5 g/dL Normal 12-04-2019 [facility] [Mass/Vol] [place] ([id number]) Comment: Performed By: #### DHEAS, TD, PROG, E2 #### [facility] [address] [place] [phone] #### EST #### [facility] [address] [place] [address] [phone] Lymphocytes (Bld) [#/Vol] 3.59 1.00-4.00 k/uL Normal 11-24 [facility] ([id number]) Comment: Performed By: #### DHEAS, TD, PROG, E2 #### [facility] [address] [place] [phone] #### EST #### [facility] [address] [place] [address] [phone] Lymphocytes/100 WBC (Bld) 30.1 % Normal 11-24 [facility] ([id number]) Comment: Performed By: #### DHEAS, TD, PROG, E2 #### [place] [phone] #### EST #### [facility] [address] [place] [address] [phone] MCH (RBC) [Entitic mass] 31.6 26.0-34.0 pG Normal 12-03 [facility] ([id number]) Comment: Performed By: #### DHEAS, TD, PROG, E2 #### [facility] [place] [phone] #### EST #### [facility] [address] [place] [phone] [phone] MCHC (RBC) [Mass/Vol] 32.9 30.5-36.0 g/dL Normal 12-04-19 [facility] ([id number]) Comment: Performed By: #### DHEAS, TD, PROG, E2 #### [place] [phone] #### EST #### [facility] [address] [place] [address] [phone] MCV (RBC) [Entitic vol] 96.1 80.0-100.0 fL Normal 12-03 [facility] (03647) Comment: Performed By: #### DHEAS, TD, PROG, E2 #### [place] [phone] #### EST #### [facility] [address] [place] [address] [phone] Monocytes/100 WBC (Bld) 8.5 % Normal 2019 [facility] (06351) Comment: Performed By: #### DHEAS, TD, PROG, E2 #### [facility] [address] [place] [phone] #### EST #### [facility] [address] [place] [address] [phone] Neutrophils/100 WBC (Bld) 58.5 % Normal 11-24-2019 [facility] ([id number]) Comment: Performed By: #### DHEAS, TD, PROG, E2 #### [facility] [place] [phone] #### EST #### [facility] [address] [place] [address] [phone] NRBCs 0.0 0 /100 WBC Normal 12-04-2019 [facility] ([id number]) Comment: Performed By: #### DHEAS, TD, PROG, E2 #### [place] [phone] #### EST #### [facility] [address] [place] [address] [phone] Platelet mean volume 9.7 9.0-12.7 fL Normal 0 [facility] (Bld) [Entitic vol] ([id number]) Comment: Performed By: #### DHEAS, TD, PROG, E2 #### [place] [address] [place] [phone] #### EST #### [facility] [address] [place] [address] [phone] Platelets (Bld) [#/Vol] 302 150-400 k/uL Normal 2019 [facility] ([id number]) Comment: Performed By: #### DHEAS, TD, PROG, E2 #### [place] [phone] #### EST #### [facility] [address] [place] [address] [phone] RBC (Bld) [#/Vol] 4.87 3.90-5.20 m/uL Normal 12-04-2019 [facility] ([id number]) Comment: Performed By: #### DHEAS, TD, PROG, E2 #### [facility] [address] [place], [place] [address] #### EST #### [facility] [address] [place] [address] [phone] WBC (Bld) [#/Vol] 11.91 3.70-11.00 k/uL High 12-04-2019 [facility] ([id number]) Comment: Performed By: #### DHEAS, TD, PROG, E2 #### [facility] [address] [place], [place] [address] #### EST #### [facility] [address] [place] [address] [phone] progress on 2019-10 PROGRESS HNO ID: [id number] Normal 10-30-2019 [facility] Author: Hugo Nava [place] ([id number]) Service: ? Author Type: Physician Type: Progress Notes Filed: 10/30/2019 2:14 PM Note Text: Patient presents with: Follow Up HPI:This Team Access Model visit is a phone encounter. It re quired patient-provider interaction for the medical decision making as documented below. Patient was offered a virtual/telemedicine appointment in li eu of an office visit due to recommendations to reduce patient exposu re to COVID-19. Patient is aware of limitations of performing the visit without a face to face visit in the office setting and agrees. See previous two visits: Was recently in the ER twice. Negative work up.? ? Again, patient has a very complex set of symptoms and work u p in the past.? ? She has had several spells Has continued to have spells that are bothering her. Was having skin burning. She states this is something new fr om before. Is everywhere. To sit down her skin hurts. Complains of brain fog. she feels like someone gave her sl eeping pills. Has heart palpitations. She did check her glucose which was 90. Her pulse was 112. bp up slightly when she has checked it. She feels like something is constricting in side of her. She has a line burning up her head. She then gets a pinching in the back of her head. She then feels rageful after. She then gets pain shooting from her breasts. She then gets pain in her finger joints. She then feels a bubbling in her throat that feels like refl ux. She then gets reina splint pain. She gets face burning. Gets wheezing Gets blurred vision Gets pain in her arms like the muscles are being torn off of her bones. [place] week and exhausted Had a sour taste in her mouth. Whole process lasts like an hour. A few hours later, she would sneeze and then have muscle bur veronica. She has checked her pulse ox when it happens and they are no rmal Her heart rate was as high as 156 in the er. Often her heart can go in the 120's. She was told by ed multiple times her heart rhythms w ere stable. No current edema. ? Her urine HIAA-5 is still pending. ? ? Her endometrium is slightly smaller on us. She was again rec ommended using endometrial biopsy. She wants to do repeat us in six months. She is giving her self some progesterone cream on her own she has. We lencho smith repeatedly discussed not using hormones on her own. She did see Dr. Ballard yesterday. They discussed was she havin g amenorrhea due to PCOS vs ovarian failure. She apparently had discussed testosterone issues with her. Dr. Ballard told her she would prescribe her t estosterone if her hb is better and is concerned about her being aware that hormone therapy can cause her an increase risks of stroke and heart attack and blood clots. She was concerned about her elevated d dimer. D iscussed that she has been worked up multiple times and offered hematology and she has not followed with them in the past. I am not sure that is si gnificant. We think that her hb etc is related to smoking. She feels that her hysterectomy triggered most of her sympto ms. ? She has not started the lexapro yet. Again reiterated to her that I think she should avoid hormon es at this point. Suggested we try the lexapro to control the symptoms. Reviewed again the risks of hormone therapy that she is self administering at this point. Reviewed risks of vascular complications including clotting and vascular disease. She was to stop self administering hormones and then actuall y try the lexapro. She is not taking the lexapro. She is on a compounded hormone prescription per Dr. Bennett and is feeling the best she has in four years. She is pleased with how she is feeling Dizziness is better. No side effects. They are not talking about following her endometrium. Both Jazlyn and I are concerned enough about it to follow it. Little reflux No burning skin or burning mouth. ? Component Latest Ref Rng AND Units 10/24/2019 TSH 0.270 - 4.200 uU/mL 2.760 MEDICATIONS: Current Outpatient Medications Medication Sig - escitalopram oxalate (LEXAPRO) 10 mg tablet 1/2 tab once a day for a week and then increase one a day by mouth. - SYNTHROID 137 mcg tablet Take 1 tablet by mouth once daily . - lancets (FREESTYLE LANCETS) 28 gauge misc USE FOUR TIMES D AILY DIRECTED - blood sugar diagnostic (FREESTYLE TEST) test strip TEST fo ur times a day - Blood-Glucose Meter (FREESTYLE LITE METER) monitoring kit 1 Each as needed. - Blood-Glucose Meter (FREESTYLE LITE METER) monitoring kit 1 Each as needed. No current facility-administered medications for this visit. ALLERGIES: ALLERGIES Allergen Reactions - Codeine GI Upset, Vomiting - Percocet [Oxycodone* Vomiting - Solumedrol [Methylp* Mental Status Change Made her rageful - Vicodin [Hydrocodon* Vomiting - Combipatch [Estradi* Intolerance feels wired, muscles hurt, lips/mouth burn, feels like asthm a flaring, nausea, dizziness. - Metformin Other: See Comments Myalgias. - Pepcid [Famotidine * Other: See Comments Dry eyes, mouth, rash, itching, anxiety - Tapazole [Methimazo* Hives PAST MEDICAL HISTORY Diagnosis Date - Abdominal pain, chronic, right upper quadrant - Asthma As a baby, then I outgrew it. - Cystocele, midline 05/13/2009 - Delayed emergence from anesthesia 09/27/2014 - Depression - Excessive or frequent menstruation Heavy periods - HSDD 10/21/2011 - Hypothyroidism should be on FRANCESCO synthroid. - Irregular menstrual cycle Irregular periods - menopause age 43 2009 in 2013 FSH 47 - Moderate dysplasia of cervix 2001 - Parent-child conflict 03/07/2013 - PMH - PAST MEDICAL HISTORY OF thyroid ablation/hypothyroid - Postmenopausal HRT (hormone replacement therapy) 12/13/2015 in 2014 took femHRT cried 11/2015 offer climara/prometrium - Rectocele 05/13/2009 - SVT (supraventricular tachycardia) (HCC) - Syncope 05/14/2013 -Reported that she had one episode of syncope at the OSH. -H ad the episode when she stood up. -No urinary incontinence or jerki ng movements. -Never had syncope episode before. -Last Echo stress test fo r her chest pain was in 2011 (normal) Plan: -Repeat the Echo: normal - T he left ventricle is normal in size. Left ventricular systolic funct ion is normal. EF = 63 ? 5% (2D biplane) - The right ventricle is normal in size. Right ventricular systolic function is normal. - There are no sign ificant valvular abnormalities. - Prior echocardiogram performed on 11/10/11 (stress echo). No significant change. - Tele - Tobacco use - Weight gain PAST SURGICAL HISTORY Procedure Laterality Date - CERVIX UTERI CONIZA LP ELCTRO EXCI 2001 LEEP-Cervix - COLONOSCOPY 04/2017 says nl - EGD W/O OR W/BRUSH/WASH 01/22/2014,2009 EGD - LAPAROSCOPIC CHOLEYCYSTECTOMY 05/19/2011 - LIGATE FALLOPIAN TUBE 2003 Tubal ligation - PAST SURGICAL HISTORY OF 1998 tubal - PAST SURGICAL HISTORY OF 2001 thyroid ablation - REMOVAL OF OVARY(S) 09/2014 laparoscopic left, CW, umbilical/upper abdominal adhesions s een benign FAMILY HISTORY Problem Relation Age of Onset - Diabetes Mother Type 2 stroke - Colon Cancer Father age 64 [place] - Diabetes Father Type 2 - Hypertension Father - Coronary Artery Disease Father Hx of [place] - Thyroid Sister hx of parathyroid disease/ hx of fibroids - other (healthy) Brother - other (healthy) Brother - Allergies Daughter - other (healthy) Daughter - other (healthy) Son - other (healthy) Son - other (healthy) Son - other (healthy) Son - Colon Cancer Paternal Aunt x5 - Colon Cancer Paternal Uncle x8 Social History Tobacco Use - Smoking status: Current Every Day Smoker Packs/day: 0.50 Types: Cigarettes Start date: 1985 - Smokeless tobacco: Never Used - Tobacco comment: Has quit intermittently, And I'm working on it now. 1st AM cigarette 10-15 minutes after awake. Most desired is that one, or last of day before bed. Prior 8 month quits, resumed after p mary completed. TO Substance Use Topics - Alcohol use: No - Drug use: No Reviewed current medications, allergies, past medical histor y, surgical history, family history and social history today. REVIEW OF SYSTEMS All other reviewed and negative other than HPI. VITALS: LMP 03/10/2010 Last 4 Encounter Wt Readings: Date: Wt: 06/19/2019 91.2 kg (201 lb) 06/14/2019 91.6 kg (202 lb) 05/24/2019 90.3 kg (199 lb) 05/12/2019 89.8 kg (198 lb) PHYSICAL EXAMINATION: Patient is alert and oriented during visit. Answers adei ately. ASSESSMENT/PLAN: 1. Estrogen deficiency - ICD9: 256.39, ICD10: E28.39 (primar y diagnosis) -doing great. Continue to follow with obstetrics and gynecology professor. 2. Thickened endometrium - ICD9: 793.5, ICD10: R93.89 - repeat us in one year. - US FEMALE PELVIS TRANSVAG 3. Postablative hypothyroidism - ICD9: 244.1, ICD10: E89.0 - Instructed patient on importance of taking on an empty sto mach either first thing in the morning or at bedtime. - LIPID PANEL BASIC - TSH BLD 4. Impaired glucose tolerance - ICD9: 790.22, ICD10: R73.02 - follow labs in one month - CBC + DIFF - COMP METABOLIC PANEL - HGB A1C Hugo Nava MD RTO in three or four months and prn. I spent 18 minutes in the visit, with more than 50% of the t otal aqwy-py-qpto time of the visit in counseling / coordination of care. [facility] 2019-10[facility]30 CNPN Telephone (FAMPWS) Normal 10-30-2019 [facility] JAZLYN GARZON ([id number]) 1965 [facility] Time Provider Department ([id number]) 10/30/19 HUGO NAVA During your visit today, we recorded the following informati on about you: Jazlyn Garcia Ma 10/30/2019 3:29 PM Signed Hugo Gutiérrez Wstr [facility] [place] Pool ? Set up us in one month. Set up follow up appt in three or 4 months. Can be f2f or vi rtual Mireya Pina Pss 10/31/2019 10:25 AM Signed Contacted patient and scheduled appts. Mireya Pian Pss Allergies As of Date: 10/30/2019 Noted Allergy Reaction CODEINE 09/27/2014 8 - GI Upset 11 - Vomiting PERCOCET (OXYCODONE-ACETAMINOPHEN)07/17/2011 11 - Vomiting SOLUMEDROL (METHYLPREDNISOLONE SO*01/22/2014 1 - Mental Stat us Change Comments: Made her rageful VICODIN (HYDROCODONE-ACETAMINOPHE*07/17/2011 11 - Vomiting COMBIPATCH (ESTRADIOL-NORETHINDRO*10/26/2016 5 - Intolerance Comments: feels wired, muscles hurt, lips/mouth burn, feels like asthma flaring, nausea, dizziness. METFORMIN 10/28/2017 14 - Other: See Comments Comments: Myalgias. PEPCID (FAMOTIDINE (PF)) 07/07/2016 14 - Other: See Comments Comments: Dry eyes, mouth, rash, itching, anxiety TAPAZOLE (METHIMAZOLE) 10/14/2005 4 - Hives Date Reviewed: 08/21/2019 Reviewed by: Ofe ([facility]) Yoel - Fully Assessed Reason for Visit: Orders [681] Prescriptions as of 10/30/2019 Sig: SYNTHROID 137 MCG TABLET Take 1 tablet by mouth once d* LANCETS 28 GAUGE USE FOUR TIMES DAILY DIREC* BLOOD SUGAR DIAGNOSTIC STRIPS TEST four times a day BLOOD-GLUCOSE METER KIT 1 Each as needed. BLOOD-GLUCOSE METER KIT 1 Each as needed. Problem List As Of Date 10/30/2019 Noted Resolved Postablative hypothyroidism [E89.0] 04/06/2006 More... Excessive or frequent menstruation [N92.0] 01/05/20072011 Irregular menstrual cycle [N92.6] 01/05/2007 10/06/2011 Unspecified aftercare [Z51.89] 05/26/2011 10/06/2011 Abdominal pain, chronic, right upper quadrant [* 10/06/2011 Post-menopause [Z78.0] 10/21/2011 03/18/2015 More... URI (upper respiratory infection) [J06.9] 05/14/2013 015 More... Pneumonia [J18.9] 05/14/2013 07/11/2014 More... More... More... More... More... Adrenal disorder [E27.9] 05/24/2013 07/11/2014 hx of low vitamin D [E55.9] 06/01/2013 Panic disorder with agoraphobia [F40.01] 07/10/2013 Chronic fatigue fibromyalgia syndrome [R53.82, *07/12/2013 Marital conflict [Z63.0] 08/30/2013 07/11/2014 Blood pressure elevated without history of HTN *09/06/2014 Impaired glucose tolerance [R73.02] 09/06/2014 More... Ovarian cyst [N83.209] 09/24/2014 03/18/2015 SVT (supraventricular tachycardia) (HCC) [I47.1]09/27/2014 Delayed emergence from anesthesia [T88.59XA] 09/27/201409/25 On home oxygen therapy [Z99.81] 09/27/2014 12/13/2015 PTSD (post-traumatic stress disorder) [F43.10] 11/01/2014 Attention deficit hyperactivity disorder (ADHD)*11/08/2014 Recurrent major depressive disorder, in partial*07/09/2015 Encounter for screening mammogram for malignant*12/12/2015 0 11/09/2016 menopause age 43 [N95.1] Tobacco use [Z72.0] Postmenopausal HRT (hormone replacement therapy*12/13/2015 0 11/09/2016 Weight gain [R63.5] 10/19/2017 GERD without esophagitis [K21.9] 05/12/2017 More... Simple chronic bronchitis (HCC) [J41.0] 12/01/2017 More... Irritable bowel syndrome with diarrhea [K58.0] 12/14/2017 Systemic lupus erythematosus (HCC) [M32.9] 02/14/2018 Burning sensation of mouth [R20.8] 02/16/2018 Burning sensation of skin [R20.8] 02/16/2018 Sleep difficulties [G47.9] 02/16/2018 Mitral valve prolapse [I34.1] 02/23/2018 More... Screening for malignant neoplasm of the cervix *06/20/2018 Visit for pelvic exam [Z01.419] 06/20/2018 Encounter for screening mammogram for malignant*06/20/2018 Estrogen deficiency [E28.39] 06/20/2018 Adrenal adenoma, left [D35.02] 08/25/2018 More... Encounter Status:Closed by MIREYA JOYNER on 10/31/19 tsh on 2019-10-24 TSH Qn 2.760 0.270-4.200 uU/mL Normal 10-24-2019 [facility] ([id number]) Comment: Performed By: #### DHEAS, TD, PROG, E2 #### [facility] [address] [place] [address] #### EST #### [facility] [address] [place] [phone] cnpn on 2019-10-24 CNPN Telephone (FAMPWS) Normal 10-24-2019 [place] JAZLYN Jones ([id number]) 1965 [facility] Date Time Provider Department ([id number]) 10/24/19 [facility] During your visit today, we recorded the following informati on about you: Daniel Hui Ma 10/24/2019 9:37 AM Signed Patient in lab now requesting lab draw TSH. Labs from 08/15 were noted as normal thyroid studies. Order pending. Please advise Hugo Nava MD 10/24/2019 10:16 AM Signed done Nel Kaba LPN 10/24/2019 10:23 AM Signed Lab advised. Nel Kaba LPN Allergies As of Date: 10/24/2019 Noted Allergy Reaction CODEINE 09/27/2014 8 - GI Upset 11 - Vomiting PERCOCET (OXYCODONE-ACETAMINOPHEN)07/17/2011 11 - Vomiting SOLUMEDROL (METHYLPREDNISOLONE SO*01/22/2014 1 - Mental Stat us Change Comments: Made her rageful VICODIN (HYDROCODONE-ACETAMINOPHE*07/17/2011 11 - Vomiting COMBIPATCH (ESTRADIOL-NORETHINDRO*10/26/2016 5 - Intolerance Comments: feels wired, muscles hurt, lips/mouth burn, feels like asthma flaring, nausea, dizziness. METFORMIN 10/28/2017 14 - Other: See Comments Comments: Myalgias. PEPCID (FAMOTIDINE (PF)) 07/07/2016 14 - Other: See Comments Comments: Dry eyes, mouth, rash, itching, anxiety TAPAZOLE (METHIMAZOLE) 10/14/2005 4 - Hives Date Reviewed: 08/21/2019 [facility]: [facility] Yoel - Fully Assessed Reason for Visit: Lab Orders [1688] Primary Visit Diagnosis:Hypothyroidism, acquired [E03.9] Order(s):TSH BLD [SQTSH] Order #: [id number] FUTURE Prescriptions as of 10/24/2019 Sig: ESCITALOPRAM 10 MG TABLET 1/2 tab once a day for a week* SYNTHROID 137 MCG TABLET Take 1 tablet by mouth once d* LANCETS 28 GAUGE USE FOUR TIMES DAILY DIREC* BLOOD SUGAR DIAGNOSTIC STRIPS TEST four times a day BLOOD-GLUCOSE METER KIT 1 Each as needed. BLOOD-GLUCOSE METER KIT 1 Each as needed. Problem List As Of Date 10/24/2019 Noted Resolved Postablative hypothyroidism [E89.0] 04/06/2006 More... Excessive or frequent menstruation [N92.0] 01/05/20072011 Irregular menstrual cycle [N92.6] 01/05/2007 10/06/2011 Unspecified aftercare [Z51.89] 05/26/2011 10/06/2011 Abdominal pain, chronic, right upper quadrant [* 10/06/2011 Post-menopause [Z78.0] 10/21/2011 03/18/2015 More... URI (upper respiratory infection) [J06.9] 05/14/2013 015 More... Pneumonia [J18.9] 05/14/2013 07/11/2014 More... More... More... More... More... Adrenal disorder [E27.9] 05/24/2013 07/11/2014 hx of low vitamin D [E55.9] 06/01/2013 Panic disorder with agoraphobia [F40.01] 07/10/2013 Chronic fatigue fibromyalgia syndrome [R53.82, *07/12/2013 Marital conflict [Z63.0] 08/30/2013 07/11/2014 Blood pressure elevated without history of HTN *09/06/2014 Impaired glucose tolerance [R73.02] 09/06/2014 More... Ovarian cyst [N83.209] 09/24/2014 03/18/2015 SVT (supraventricular tachycardia) (HCC) [I47.1]09/27/2014 Delayed emergence from anesthesia [T88.59XA] 09/27/201409/25 On home oxygen therapy [Z99.81] 09/27/2014 12/13/2015 PTSD (post-traumatic stress disorder) [F43.10] 11/01/2014 Attention deficit hyperactivity disorder (ADHD)*11/08/2014 Recurrent major depressive disorder, in partial*07/09/2015 Encounter for screening mammogram for malignant*12/12/2015 0 11/09/2016 menopause age 43 [N95.1] Tobacco use [Z72.0] Postmenopausal HRT (hormone replacement therapy*12/13/2015 0 11/09/2016 Weight gain [R63.5] 10/19/2017 GERD without esophagitis [K21.9] 05/12/2017 More... Simple chronic bronchitis (HCC) [J41.0] 12/01/2017 More... Irritable bowel syndrome with diarrhea [K58.0] 12/14/2017 Systemic lupus erythematosus (HCC) [M32.9] 02/14/2018 Burning sensation of mouth [R20.8] 02/16/2018 Burning sensation of skin [R20.8] 02/16/2018 Sleep difficulties [G47.9] 02/16/2018 Mitral valve prolapse [I34.1] 02/23/2018 More... Screening for malignant neoplasm of the cervix *06/20/2018 Visit for pelvic exam [Z01.419] 06/20/2018 Encounter for screening mammogram for malignant*06/20/2018 Estrogen deficiency [E28.39] 06/20/2018 Adrenal adenoma, left [D35.02] 08/25/2018 More... Encounter Status:Closed by NEL KABA LPN on 10/24/19 progress on 2019-09 PROGRESS HNO ID: [id number] Normal 09-29-2019 [facility] Author: Hugo Nava Dixon ([id number]) Service: ? Author Type: Physician Type: Progress Notes Filed: 09/29/2019 12:40 PM Note Text: No chief complaint on file. HPI:This Team Access Model visit is a virtual encounter. It required patient-provider interaction for the medical decision making as documented below. Patient was offered a virtual/telemedicine appointment in li eu of an office visit due to recommendations to reduce patient exposu re to COVID-19. Patient is aware of limitations of performing the visit without a face to face visit in the office setting and agrees. See previous visit: Was recently in the ER twice. Negative work up. ? Again, patient has a very complex set of symptoms and work u p in the past. ? She has had several spells Has continued to have spells that are bothering her. Was having skin burning. She states this is something new fr om before. Is everywhere. To sit down her skin hurts. Complains of brain fog. she feels like someone gave her sl eeping pills. Has heart palpitations. She did check her glucose which was 90. Her pulse was 112. bp up slightly when she has checked it. She feels like something is constricting in side of her. She has a line burning up her head. She then gets a pinching in the back of her head. She then feels rageful after. She then gets pain shooting from her breasts. She then gets pain in her finger joints. She then feels a bubbling in her throat that feels like refl ux. She then gets reina splint pain. She gets face burning. Gets wheezing Gets blurred vision Gets pain in her arms like the muscles are being torn off of her bones. [place] week and exhausted Had a sour taste in her mouth. Whole process lasts like an hour. A few hours later, she would sneeze and then have muscle bur veronica. She has checked her pulse ox when it happens and they are no rmal Her heart rate was as high as 156 in the er. Often her heart can go in the 120's. She was told by ed multiple times her heart rhythms w ere stable. No current edema. ? Her urine HIAA-5 is still pending. Her endometrium is slightly smaller on us. She was again rec ommended using endometrial biopsy. She wants to do repeat us in six months. She is giving her self some progesterone cream on her own she has. We gurwinderhang sarah repeatedly discussed not using hormones on her own. She did see Dr. Ballard yesterday. They discussed was she estiven shaw amenorrhea due to PCOS vs ovarian failure. She apparently had discussed testosterone issues with her. Dr. Ballard told her she would prescribe her t estosterone if her hb is better and is concerned about her being aware that hormone therapy can cause her an increase risks of stroke and heart attack and blood clots. She was concerned about her elevated d dimer. D iscussed that she has been worked up multiple times and offered hematology and she has not followed with them in the past. I am not sure that is si gnificant. We think that her hb etc is related to smoking. She feels that her hysterectomy triggered most of her sympto ms. She has not started the lexapro yet. Again reiterated to her that I think she should avoid hormon es at this point. Suggested we try the lexapro to control the symptoms. Reviewed again the risks of hormone therapy that she is self administering at this point. Reviewed risks of vascular complications including clotting and vascular disease. MEDICATIONS: Current Outpatient Medications Medication Sig - escitalopram oxalate (LEXAPRO) 10 mg tablet 1/2 tab once a day for a week and then increase one a day by mouth. - SYNTHROID 137 mcg tablet Take 1 tablet by mouth once daily . - lancets (FREESTYLE LANCETS) 28 gauge misc USE FOUR TIMES D AILY DIRECTED - blood sugar diagnostic (FREESTYLE TEST) test strip TEST fo ur times a day - Blood-Glucose Meter (FREESTYLE LITE METER) monitoring kit 1 Each as needed. - Blood-Glucose Meter (FREESTYLE LITE METER) monitoring kit 1 Each as needed. No current facility-administered medications for this visit. ALLERGIES: ALLERGIES Allergen Reactions - Codeine GI Upset, Vomiting - Percocet [Oxycodone* Vomiting - Solumedrol [Methylp* Mental Status Change Made her rageful - Vicodin [Hydrocodon* Vomiting - Combipatch [Estradi* Intolerance feels wired, muscles hurt, lips/mouth burn, feels like asthm a flaring, nausea, dizziness. - Metformin Other: See Comments Myalgias. - Pepcid [Famotidine * Other: See Comments Dry eyes, mouth, rash, itching, anxiety - Tapazole [Methimazo* Hives PAST MEDICAL HISTORY Diagnosis Date - Abdominal pain, chronic, right upper quadrant - Asthma As a baby, then I outgrew it. - Cystocele, midline 05/13/2009 - Delayed emergence from anesthesia 09/27/2014 - Depression - Excessive or frequent menstruation Heavy periods - HSDD 10/21/2011 - Hypothyroidism should be on FRANCESCO synthroid. - Irregular menstrual cycle Irregular periods - menopause age 43 2009 in 2012 FSH 47 - Moderate dysplasia of cervix 2001 - Parent-child conflict 03/07/2013 - PMH - PAST MEDICAL HISTORY OF thyroid ablation/hypothyroid - Postmenopausal HRT (hormone replacement therapy) 12/13/2015 in 2014 took femHRT cried 11/2015 offer climara/prometrium - Rectocele 05/13/2009 - SVT (supraventricular tachycardia) (HCC) - Syncope 05/14/2013 -Reported that she had one episode of syncope at the OSH. -H ad the episode when she stood up. -No urinary incontinence or jerki ng movements. -Never had syncope episode before. -Last Echo stress test fo r her chest pain was in 2011 (normal) Plan: -Repeat the Echo: normal - T he left ventricle is normal in size. Left ventricular systolic funct ion is normal. EF = 63 ? 5% (2D biplane) - The right ventricle is normal in size. Right ventricular systolic function is normal. - There are no sign ificant valvular abnormalities. - Prior echocardiogram performed on 11/10/11 (stress echo). No significant change. - Tele - Tobacco use - Weight gain PAST SURGICAL HISTORY Procedure Laterality Date - CERVIX UTERI CONIZA LP ELCTRO EXCI 2001 LEEP-Cervix - COLONOSCOPY 04/2017 says nl - EGD W/O OR W/BRUSH/WASH 01/22/2014,2009 EGD - LAPAROSCOPIC CHOLEYCYSTECTOMY 05/19/2011 - LIGATE FALLOPIAN TUBE 2003 Tubal ligation - PAST SURGICAL HISTORY OF 1998 tubal - PAST SURGICAL HISTORY OF 2001 thyroid ablation - REMOVAL OF OVARY(S) 09/2014 laparoscopic left, CW, umbilical/upper abdominal adhesions s een benign FAMILY HISTORY Problem Relation Age of Onset - Diabetes Mother Type 2 stroke - Colon Cancer Father age 64 [place] - Diabetes Father Type 2 - Hypertension Father - Coronary Artery Disease Father Hx of [place] - Thyroid Sister hx of parathyroid disease/ hx of fibroids - other (healthy) Brother - other (healthy) Brother - Allergies Daughter - other (healthy) Daughter - other (healthy) Son - other (healthy) Son - other (healthy) Son - other (healthy) Son - Colon Cancer Paternal Aunt x5 - Colon Cancer Paternal Uncle x8 Social History Tobacco Use - Smoking status: Current Every Day Smoker Packs/day: 0.50 Types: Cigarettes Start date: 1985 - Smokeless tobacco: Never Used - Tobacco comment: Has quit intermittently, And I'm working on it now. 1st AM cigarette 10-15 minutes after awake. Most desired is that one, or last of day before bed. Prior 8 month quits, resumed after p regnancies completed. TO Substance Use Topics - Alcohol use: No - Drug use: No Reviewed current medications, allergies, past medical histor y, surgical history, family history and social history today. REVIEW OF SYSTEMS All other reviewed and negative other than HPI. VITALS: LMP 03/10/2010 Last 4 Encounter Wt Readings: Date: Wt: 06/19/2019 91.2 kg (201 lb) 06/14/2019 91.6 kg (202 lb) 05/24/2019 90.3 kg (199 lb) 05/12/2019 89.8 kg (198 lb) PHYSICAL EXAMINATION: Patient is alert and oriented during visit. Answers appropri ately. No pallor. heent appears grossly normal. No audible cough. Speaking in full sentences. No audible wheeze. PSYCH:Affect normal. Normal speech. Normal eye contact ASSESSMENT/PLAN: 1. Postablative hypoparathyroidism - ICD9: 252.1, ICD10: E89 .0 (primary diagnosis) - continue meds. 2. Hormone deficiency - ICD9: 259.8, ICD10: E34.8 - again, encouraged not to self administer hormones. Encoura ged her to avoid using and follow with obstetrics and gynecology professor. [place]and[place] man. Follow up in one month or prn. Hugo Nava MD us female pelvis transvag on 2019-09-28 US FEMALE PELVIS * * *Final Report* * * Normal 09-28-2019 [facility] TRANSVAG DATE OF EXAM: Sep 28 2019 7:55AM [place] ([id number]) WRU 1060 - US FEMALE PELVIS TRANSVAG / PROCEDURE REASON: Endometrial thickening on ultrasound * * * * Physician Interpretation * * * * EXAMINATION: TRANSVAGINAL AND LIMITED TRANSABDOMINAL PELVIC ULTRASOUND CLINICAL HISTORY: Endometrial thickening TECHNIQUE: Sonography of the pelvis was performed by transva ginal and transabdominal (limited) techniques. Images were obtained an d stored in a permanent archive. MQ: [id number] COMPARISON: 08/17/2019 RESULT: Uterus size: 7.2 x 3 x 4.1 cm -Orientation: Anteverted -Myometrium: Mildly heterogeneous . No discrete mass -Endometrial echo complex: 0.5 cm . A few tiny cystic foci w ithin it. Possible bicornuate and/or septate uterus -Cervix: normal Right ovary: 2.6 x 1.7 x 1.8 cm Left ovary: Surgically absent Pelvis free fluid: None. IMPRESSION: Diffusely heterogeneous uterus. Possible bicornuate and/or s eptate uterus. Endometrium is upper limits of normal or slightly thickened for postmenopausal patient. Endometrial biopsy should be conside red No evidence of free fluid or pathologic adnexal mass Audiovisual Technician: PSCB Transcribe Date/Time: Sep 28 2019 9:30A Dictated by : GLADIS BREEN MD This examination was interpreted and the report reviewed and electronically signed by: GLADIS BREEN MD on Sep 28 2019 9:34AM EST [id number] progress on 2019-09 PROGRESS HNO ID: [id number] Normal 09-28-2019 [facility] Author: Michelle Bo (Tech) [place] ([id number]) Service: ? Author Type: Documentation Writer Type: Progress Notes Filed: 09/28/2019 7:46 AM Note Text: Radiology Service Progress Note PATIENT NAME: Jazlyn Garzon DATE OF SERVICE: September 28, 2019 TIME: 7:45 AM PATIENT IDENTITY VERIFICATION COMPLETED USING TWO (2) IDENTI FIERS: Name and Date of confirmed by patient verbally. FALL SCREENING: Has the patient had 2 falls in the last year or 1 fall with injury or currently using an Ambulatory Assistive Devic e (Walker, Cane, Wheelchair, Crutches, etc.)? No PATIENT GENDER DATA: Female. status: : No status: NO. PATIENT RELEVANT IMPLANT DATA REVIEWED: Not Applicable RADIOLOGY DEPARTMENT: Ultrasound PERIPHERAL IV DATA: Not applicable SIGNED BY: Michelle Bo September 28, 2019 7:45 AM melinda on 2019-09-28 DHIRAJN Telephone (OBGYWM) Normal 09-28-2019 [place] [facility] JAZLYN GARZON ([id number]) 1965 [facility] Time Provider Department ([id number]) 09/28/19 OFE GARCIA) OBGYWM During your visit today, we recorded the following informati on about you: Ofe Garcia APRN.CNP 09/28/2019 1:27 PM Signed LM for pt regarding US report. I still recommend an EM B, but if she does not want to do that the I want her to repeat the US in 6 month s. GIOVANNI Kent APRN.CNP 09/28/2019 2:37 PM Signed Spoke with pt about US result. Declined EMB still but will r epeat US in 6 months. Ofe Garcia APRN.CNP Allergies As of Date: 09/28/2019 Noted Allergy Reaction CODEINE 09/27/2014 8 - GI Upset 11 - Vomiting PERCOCET (OXYCODONE-ACETAMINOPHEN)07/17/2011 11 - Vomiting SOLUMEDROL (METHYLPREDNISOLONE SO*01/22/2014 1 - Mental Stat us Change Comments: Made her rageful VICODIN (HYDROCODONE-ACETAMINOPHE*07/17/2011 11 - Vomiting COMBIPATCH (ESTRADIOL-NORETHINDRO*10/26/2016 5 - Intolerance Comments: feels wired, muscles hurt, lips/mouth burn, feels like asthma flaring, nausea, dizziness. METFORMIN 10/28/2017 14 - Other: See Comments Comments: Myalgias. PEPCID (FAMOTIDINE (PF)) 07/07/2016 14 - Other: See Comments Comments: Dry eyes, mouth, rash, itching, anxiety TAPAZOLE (METHIMAZOLE) 10/14/2005 4 - Hives Date Reviewed: 08/21/2019 Reviewed by: Ofe ([facility]) Yoel - Fully Assessed Reason for Visit: Results [95] Primary Visit Diagnosis:Endometrial thickening on ultrasound [R93.89] Order(s):PELVIC US [facility] [[id number]] Order #: [id number]: 1 Prescriptions as of 09/28/2019 Sig: ESCITALOPRAM 10 MG TABLET 1/2 tab once a day for a week* BUMETANIDE 0.5 MG TABLET Take 1 tablet by mouth once d* METFORMIN 500 MG TABLET Take 1 tablet by mouth twice * SYNTHROID 137 MCG TABLET Take 1 tablet by mouth once d* FLORAJEN3 460 MG (7.5-6-1.5 B* Take 1 capsule by mouth once * LANCETS 28 GAUGE USE FOUR TIMES DAILY DIREC* BLOOD SUGAR DIAGNOSTIC STRIPS TEST four times a day BLOOD-GLUCOSE METER KIT 1 Each as needed. BLOOD-GLUCOSE METER KIT 1 Each as needed. Problem List As Of Date 09/28/2019 Noted Resolved Postablative hypothyroidism [E89.0] 04/06/2006 More... Excessive or frequent menstruation [N92.0] 01/05/20072011 Irregular menstrual cycle [N92.6] 01/05/2007 10/06/2011 Unspecified aftercare [Z51.89] 05/26/2011 10/06/2011 Abdominal pain, chronic, right upper quadrant [* 10/06/2011 Post-menopause [Z78.0] 10/21/2011 03/18/2015 More... URI (upper respiratory infection) [J06.9] 05/14/2013 015 More... Pneumonia [J18.9] 05/14/2013 07/11/2014 More... More... More... More... More... Adrenal disorder [E27.9] 05/24/2013 07/11/2014 hx of low vitamin D [E55.9] 06/01/2013 Panic disorder with agoraphobia [F40.01] 07/10/2013 Chronic fatigue fibromyalgia syndrome [R53.82, *07/12/2013 Marital conflict [Z63.0] 08/30/2013 07/11/2014 Blood pressure elevated without history of HTN *09/06/2014 Impaired glucose tolerance [R73.02] 09/06/2014 More... Ovarian cyst [N83.209] 09/24/2014 03/18/2015 SVT (supraventricular tachycardia) (HCC) [I47.1]09/27/2014 Delayed emergence from anesthesia [T88.59XA] 09/27/201409/25 On home oxygen therapy [Z99.81] 09/27/2014 12/13/2015 PTSD (post-traumatic stress disorder) [F43.10] 11/01/2014 Attention deficit hyperactivity disorder (ADHD)*11/08/2014 Recurrent major depressive disorder, in partial*07/09/2015 Encounter for screening mammogram for malignant*12/12/2015 0 11/09/2016 menopause age 43 [N95.1] Tobacco use [Z72.0] Postmenopausal HRT (hormone replacement therapy*12/13/2015 0 11/09/2016 Weight gain [R63.5] 10/19/2017 GERD without esophagitis [K21.9] 05/12/2017 More... Simple chronic bronchitis (HCC) [J41.0] 12/01/2017 More... Irritable bowel syndrome with diarrhea [K58.0] 12/14/2017 Systemic lupus erythematosus (HCC) [M32.9] 02/14/2018 Burning sensation of mouth [R20.8] 02/16/2018 Burning sensation of skin [R20.8] 02/16/2018 Sleep difficulties [G47.9] 02/16/2018 Mitral valve prolapse [I34.1] 02/23/2018 More... Screening for malignant neoplasm of the cervix *06/20/2018 Visit for pelvic exam [Z01.419] 06/20/2018 Encounter for screening mammogram for malignant*06/20/2018 Estrogen deficiency [E28.39] 06/20/2018 Adrenal adenoma, left [D35.02] 08/25/2018 More... Encounter Status:Closed by OFE GARCIA on 09/28/19 progress on 2019-08 PROGRESS HNO ID: [id number] Normal 09-15-2019 [facility] Author: Hugo Nava Dixon ([id number]) Service: ? Author Type: Physician Type: Progress Notes Filed: 09/15/2019 1:30 PM Note Text: No chief complaint on file. HPI:This Team Access Model visit is a virtual encounter. It required patient-provider interaction for the medical decision making as documented below. Patient was offered a virtual/telemedicine appointment in li eu of an office visit due to recommendations to reduce patient exposu re to COVID-19. Patient is aware of limitations of performing the visit without a face to face visit in the office setting and agrees. Was recently in the ER twice. Negative work up. Again, patient has a very complex set of symptoms and work u p in the past. She has had several spells Has continued to have spells that are bothering her. Was having skin burning. She states this is something new fr om before. Is everywhere. To sit down her skin hurts. Complains of brain fog. she feels like someone gave her sl eeping pills. Has heart palpitations. She did check her glucose which was 90. Her pulse was 112. bp up slightly when she has checked it. She feels like something is constricting in side of her. She has a line burning up her head. She then gets a pinching in the back of her head. She then feels rageful after. She then gets pain shooting from her breasts. She then gets pain in her finger joints. She then feels a bubbling in her throat that feels like refl ux. She then gets reina splint pain. She gets face burning. Gets wheezing Gets blurred vision Gets pain in her arms like the muscles are being torn off of her bones. [place] week and exhausted Had a sour taste in her mouth. Whole process lasts like an hour. A few hours later, she would sneeze and then have muscle bur veronica. She has checked her pulse ox when it happens and they are no rmal Her heart rate was as high as 156 in the er. Often her heart can go in the 120's. She was told by ed multiple times her heart rhythms w ere stable. No current edema. Her urine HIAA-5 is still pending. She is to have a pelvic us in two months. No further vaginal bleeding. She feels dramatically better when on hormones but again had bleeding. Has declined endometrial biopsy but obstetrics and gynecology professor is following her ble eding. Has seen multiple providers including cardio, endo, gi, surg alberto, obstetrics and gynecology professor, neurology, rheumatology has had extensive work up and chuck wan She has an appointment to see Dr. Ballard again in September. We have tried numerous meds but she has been unable to ellen ate any of them. We have talked about anxiety at least playing a role but hav e been unable to tolerate any meds. Has had a tilt table ordered for possible álvarez due to ortho stasisis we have documented but has not done it. Discussed that her friend feels she is depressed. We discuss ed that at length. MEDICATIONS: Current Outpatient Medications Medication Sig - bumetanide (BUMEX) 0.5 mg tablet Take 1 tablet by mouth on ce daily. prn - metFORMIN (GLUCOPHAGE) 500 mg tablet Take 1 tablet by mout h twice daily with meals. . - SYNTHROID 137 mcg tablet Take 1 tablet by mouth once daily . - L.acidoph-B.lactis-B.longum (FLORAJEN3) 460 mg (7.5-6- 1.5 bill. cell) cap Take 1 capsule by mouth once daily. - lancets (FREESTYLE LANCETS) 28 gauge misc USE FOUR TIMES D AILY DIRECTED - blood sugar diagnostic (FREESTYLE TEST) test strip TEST fo ur times a day - Blood-Glucose Meter (FREESTYLE LITE METER) monitoring kit 1 Each as needed. - Blood-Glucose Meter (FREESTYLE LITE METER) monitoring kit 1 Each as needed. No current facility-administered medications for this visit. ALLERGIES: ALLERGIES Allergen Reactions - Codeine GI Upset, Vomiting - Percocet [Oxycodone* Vomiting - Solumedrol [Methylp* Mental Status Change Made her rageful - Vicodin [Hydrocodon* Vomiting - Combipatch [Estradi* Intolerance feels wired, muscles hurt, lips/mouth burn, feels like asthm a flaring, nausea, dizziness. - Metformin Other: See Comments Myalgias. - Pepcid [Famotidine * Other: See Comments Dry eyes, mouth, rash, itching, anxiety - Tapazole [Methimazo* Hives PAST MEDICAL HISTORY Diagnosis Date - Abdominal pain, chronic, right upper quadrant - Asthma As a baby, then I outgrew it. - Cystocele, midline 05/13/2009 - Delayed emergence from anesthesia 09/27/2014 - Depression - Excessive or frequent menstruation Heavy periods - HSDD 10/21/2011 - Hypothyroidism should be on FRANCESCO synthroid. - Irregular menstrual cycle Irregular periods - menopause age 43 2009 in 2012 FSH 47 - Moderate dysplasia of cervix 2001 - Parent-child conflict 03/07/2013 - PMH - PAST MEDICAL HISTORY OF thyroid ablation/hypothyroid - Postmenopausal HRT (hormone replacement therapy) 12/13/2015 in 2014 took femHRT cried 11/2015 offer climara/prometrium - Rectocele 05/13/2009 - SVT (supraventricular tachycardia) (HCC) - Syncope 05/14/2013 -Reported that she had one episode of syncope at the OSH. -H ad the episode when she stood up. -No urinary incontinence or jerki ng movements. -Never had syncope episode before. -Last Echo stress test fo r her chest pain was in 2011 (normal) Plan: -Repeat the Echo: normal - T he left ventricle is normal in size. Left ventricular systolic funct ion is normal. EF = 63 ? 5% (2D biplane) - The right ventricle is normal in size. Right ventricular systolic function is normal. - There are no sign ificant valvular abnormalities. - Prior echocardiogram performed on 11/10/11 (stress echo). No significant change. - Tele - Tobacco use - Weight gain PAST SURGICAL HISTORY Procedure Laterality Date - CERVIX UTERI CONIZA LP ELCTRO EXCI 2001 LEEP-Cervix - COLONOSCOPY 04/2017 says nl - EGD W/O OR W/BRUSH/WASH 01/22/2014,2009 EGD - LAPAROSCOPIC CHOLEYCYSTECTOMY 05/19/2011 - LIGATE FALLOPIAN TUBE 2003 Tubal ligation - PAST SURGICAL HISTORY OF 1998 tubal - PAST SURGICAL HISTORY OF 2001 thyroid ablation - REMOVAL OF OVARY(S) 09/2014 laparoscopic left, CW, umbilical/upper abdominal adhesions s een benign FAMILY HISTORY Problem Relation Age of Onset - Diabetes Mother Type 2 stroke - Colon Cancer Father age 64 [place] - Diabetes Father Type 2 - Hypertension Father - Coronary Artery Disease Father Hx of [place] - Thyroid Sister hx of parathyroid disease/ hx of fibroids - other (healthy) Brother - other (healthy) Brother - Allergies Daughter - other (healthy) Daughter - other (healthy) Son - other (healthy) Son - other (healthy) Son - other (healthy) Son - Colon Cancer Paternal Aunt x5 - Colon Cancer Paternal Uncle x8 Social History Tobacco Use - Smoking status: Current Every Day Smoker Packs/day: 0.50 Types: Cigarettes Start date: 1985 - Smokeless tobacco: Never Used - Tobacco comment: Has quit intermittently, And I'm working on it now. 1st AM cigarette 10-15 minutes after awake. Most desired is that one, or last of day before bed. Prior 8 month quits, resumed after p regnancies completed. TO Substance Use Topics - Alcohol use: No - Drug use: No Reviewed current medications, allergies, past medical histor y, surgical history, family history and social history today. REVIEW OF SYSTEMS All other reviewed and negative other than HPI. VITALS: LMP 03/10/2010 Last 4 Encounter Wt Readings: Date: Wt: 06/19/2019 91.2 kg (201 lb) 06/14/2019 91.6 kg (202 lb) 05/24/2019 90.3 kg (199 lb) 05/12/2019 89.8 kg (198 lb) PHYSICAL EXAMINATION: Patient is alert and oriented during visit. Answers appropri ately. Pleasant. PSYCH:Affect normal. Normal speech. Normal eye contact Breathing normally. No audible cough. ASSESSMENT/PLAN: 1. [place] - ICD9: 782.62, ICD10: R23.2 (primary diagnosis) - willing to try ssri. Will try lexapro at a low dose and wo rk our way up. Encouraged to give it a try and call if any issue. 2. Burning sensation of mouth - ICD9: 528.9, ICD10: R20.8 - as above. 3. Hypothyroidism, acquired - ICD9: 244.9, ICD10: E03.9 - continue meds. 4. Hormone deficiency - ICD9: 259.8, ICD10: E34.8 - again, discussed avoiding self administration of hormones. Encouraged to follow up with obstetrics and gynecology professor. 5. Anxiety - ICD9: 300.00, ICD10: F41.9 - Discussed risks and benefits of new medication with the raymond vale. Advised them to call if any side effects or questions. - follow up in two weeks. - ESCITALOPRAM 10 MG TABLET 6. Hormone disturbance - ICD9: 259.9, ICD10: E34.9 - defer to obstetrics and gynecology professor/enco Hugo Nava MD RTO in two weeks. and prn. I spent 30 minutes in the visit, with more than 50% of the t otal osfz-ax-dyhm time of the visit in counseling / coordination of care. period and volume o n 2019-09-11 Period 24 hr Normal 09-11-2019 [facility] ([id number]) Comment: Performed By: #### TFTEST ## ## [facility] [employer] [address] [place] [address] Volume 3200 mL Normal 09-11-2019 [facility] ([id number]) Comment: Performed By: #### TFTEST ## ## [facility] [employer] [address] [place] [address] hiaa, urine, 24 hour on 2019-09-11 HIAA, Urine, 24 Hour 3.8 0.0-8.0 mg/24hrs Normal 0 [facility] ([id number]) Comment: Result Comment: This test wa s developed and its performance characteristics determined by [facility]'s [facility] ( [facility]). It has not been cleared or a pproved by the FDA. [facility] is regulated under CLIA as qualified to perform high complexity testing. This test is used for clinic al purposes. It should not be regarded as investigational or for research. Performed By: #### TFTEST ## ## [facility] [employer] [address] [place] [address] vitamin b6 plasma o n 2019-09-06 Vitamin B6 Plasma 22.0 20.0-125.0 nmol/L Normal 09-06-2019 [facility] ([id number]) Comment: Result Comment: (NOTE) INTERPRETIVE INFORMATION: Vi tamin B6 (Pyridoxal 5-Phosphate) Pyridoxal 5'-phosphate measu red in a specimen collected following an 8-hour or overnight fast accurately indicates vitamin B6 nutritional status. Non-fast ing specimen concentration reflects recent vitamin intake. Test developed and character istics determined by [facility]. See Compliance Statement B: [employer]/CS Performed by [facility] , [address] [place] [address] [id number] [email or web address], Wilner Saenz do, MD, Lab. Director Performed By: #### FERR, SER FOL, IRON, PROG, B12, E2 ####[facility] [address], [place] [phone]#### EST, VITB6 ####[facility] [address] [place], [place] [phone] vitamin b12 on 2019 Cobalamin (Vitamin B12) 113 561-2486 pg/mL Normal 2019 [facility] [Mass/Vol] [place] ([id number]) Comment: Performed By: #### FERR, SER FOL, IRON, PROG, B12, E2 ####[facility] [address], [place] [phone]#### EST, VITB6 ####[facility] [address] [place], [place] [phone] testosterone, tot/fr on 2019-09-06 Testosterone [Mass/Vol] 23 8-60 ng/dL Normal 2019 [facility] ([id number]) Comment: Result Comment: (NOTE) ADDITIONA L INFORMATION Testing performed by Liquid Chromatography-Tandem Mass Spectrometry (LC-MS/MS). This test was developed and its performance characteristics determined by [facility] in a manner consistent with CLIA requirements. This test has not been cleared or approved by the U.S. Food and Drug Admin istration. Performed By: #### TFTEST ## ## [facility] [address] [place], [place] [id number] Testosterone, Free 0.25 0.06-0.92 ng/dL Normal 09-06-2019 [facility] ([id number]) Comment: Result Comment: (NOTE) ADDITIONA L INFORMATION Testing performed by [facility]. This test was developed and its performance characteristics determined by [facility] in a manner consistent with CLIA requirements. This test has not been cleared or approved by the U.S. Food and Drug Admin istration. Performed By: #### TFTEST ## ## [facility] [address] [place] [address] progesterone on 202 Progesterone 0.4 ng/mL Normal 09-06-2019 [facility] ([id number]) Comment: Result Comment: Menstrual Cy soy Progesterone Reference Ranges: Follicular:<1.0 ng/mL Ovulation:<12.1 ng/mL Luteal:1.8 to 23.9 ng/mL Progesterone Refer ence Ranges vary by gestational period: First Trimester:11.0 to 44.3 ng/mL Second Trimester:25.4 to >60 .0 ng/mL Third Trimester:58.7 to >60. 0 ng/mL Post menopausal Progesterone :<0.5 ng/mL Reference: 1. Progesterone ( Progesterone III) [package insert V 1.0 Mexican]. [facility], [place], [place]. January 2015. Performed By: #### FERR, SER FOL, IRON, PROG, B12, E2 ####[facility] [address] [place], [place] [phone]#### EST, VITB6 ####[facility] [address] [place], [place] [phone] iron and tibc on 12-09-12 Iron [Mass/Vol] 126 41-186 ug/dL Normal 09-06-2019 [facility] ([id number]) Comment: Performed By: #### FERR, SER FOL, IRON, PROG, B12, E2 ####[place] [facility] [address] [place], [place] [phone]#### EST, VITB6 ####[facility] [address] [place], [place] [phone] TIBC 402 232-386 ug/dL High 09-06-2019 [facility] ([id number]) Comment: Performed By: #### FERR, SER FOL, IRON, PROG, B12, E2 ####[place] [address] [place], [place] [phone]#### EST, VITB6 ####[facility] [address] [place], [place] [phone] Transferrin Saturatn 31 15-57 % Normal 0 [facility] ([id number]) Comment: Performed By: #### FERR, SER FOL, IRON, PROG, B12, E2 ####[place] [address] [place], [place] [phone]#### EST, VITB6 ####[facility] [address] [place], [place] [phone] folate, serum on 12-09-12 Folate [Mass/Vol] 10.6 >4.7 ng/mL Normal 09-06-2019 [facility] ([id number]) Comment: Performed By: #### FERR, SER FOL, IRON, PROG, B12, E2 ####[place] [address] [place], [place] [phone]#### EST, VITB6 ####[facility] [address] [place], [place] [phone] ferritin on 2019-08 Ferritin [Mass/Vol] 142.0 14.7-205.1 ng/mL Normal 0 [facility] ([id number]) Comment: Performed By: #### FERR, SER FOL, IRON, PROG, B12, E2 ####[facility] [address] [place], [place] [phone]#### EST, VITB6 ####[facility] [address] [place], [place] [phone] estrone on Estrone 24.8 pg/mL Normal 09-06-2019 [facility] ([id number]) Comment: Result Comment: (NOTE) Females: Pre-menopausal: Early follic ular <150.0 pg/mL Pre-menopausal: Late follicu lar 100.0-250.0 pg/mL Pre-menopausal: Luteal <200. 0 pg/mL Post-menopausal 3.0-32.0 pg/ mL REFERENCE INTERVAL: Estrone by [facility] Access complete set of age- and/or gender-specific reference intervals for this test in [facility] ([employer]). Test developed and character istics determined by [facility]. See Compliance Statement B: [employer] Performed by [facility] , [address], [place] [address] [email or web address], Wilner Saenz do, MD, Lab. Director Performed By: #### FERR, SER FOL, IRON, PROG, B12, E2 ####[facility] [address] [place], [place] [phone]#### EST, VITB6 ####[facility] [address] [place], [place] [phone] estradiol-17b on 12-09-12 Estradiol-17B <25 Normal 09-06-2019 [facility] ([id number]) Comment: Result Comment: This test is not suitable for patients receiving treatment with the drug Fulvestrant (Faslodex). The drug causes an interference leading to falsely elevated estradiol results. Menstrual cycle Estradiol re ference ranges: Follicular : < 234 pg/mL Ovulation : 41 to 398 pg/mL Luteal : < 342 pg/mL Estradiol referenc e ranges vary by gestational period: First trimester : 154 to 324 3 pg/mL Second trimester : 1561 TO 2 1280 pg/mL Third trimester : 8285 to >3 0000 pg/mL Post-menopausal Estradiol re ference range: < 41 pg/mL Reference: 1. Estradiol - E2 (Estradiol III) [package insert V 3.0 Mexican]. [facility], [place], [place], September 2015. Performed By: #### FERR, SER FOL, IRON, PROG, B12, E2 ####[facility] [address] [place], [place] [phone]#### EST, VITB6 ####[facility] [address] [place], [place] [phone] progress on 2019-08 PROGRESS HNO ID: [id number] Normal 09-01-2019 [place] Author: Hugo Nava [facility]: ? [place] Author Type: Physician ([id number]) Type: Progress Notes Filed: 09/01/2019 12:28 PM Note Text: No chief complaint on file. HPI:This Team Access Model visit is a virtual encounter. It required patient-provider interaction for the medical decision making as documented below. Patient was offered a virtual/telemedicine appointment in li eu of an office visit due to recommendations to reduce patient exposu re to COVID-19. Patient is aware of limitations of performing the visit without a face to face visit in the office setting and agrees. Used the [employer]ad[employer] platform. Seen at [facility] ER on 08/28. Date of Service: 08/29/19 Chief Complaint: Swelling History of Present Illness: The patient is a 53 F who sees Keyla Nava and Dr. Canseco. She reports that she has bilateral lower extremity edema that be humaira 2 to 3 weeks ago. States that the left is worse than the right. She denies any chest pain. She does report that she is having intermittent palpitations that she describes as her h eart racing. This lasts minutes at a time. Patient complains of mild shortness of breath. Is unchanged with exertion. Is increased with laying down. She denies any PND or orthopnea. She denies fev er, chills, cough, or other complaints. Physical Examination: Vitals: Stable. Afebrile. General: Well-nourished and well-developed. Head: Normocephalic atraumatic. Neck: Supple, no lymphadenopathy. No JVD. Nontender. Cardiovascular: Tachycardic regular rhythm. No murmurs. Respiratory: No respiratory distress. Clear to auscultation bilaterally. Abdominal: Soft, nontender, nondistended, normal bowel sound s. No guarding, rebound, or peritoneal signs. Back: Nontender. Extremities: Nontender, trace pedal edema of her lower extre mities bilaterally. This is symmetric. There is no calf tenderness. 2+ dorsalis pedis pu lse bilaterally. Skin: Normal color, no rash. Neurologic: Alert and oriented 3. Cranial nerves II through XII are intact. Normal strength and sensation. Psych: Normal affect. Test Results: EKG is sinus tach at [address] c hanges. Troponin is negative. B PETAL SHAPER HAND is normal. LFTs are normal. Chem-7 shows a chloride of 11 1 and glucose of 110. CBC shows a hemoglobin of 15.1. TSH is mildly elevated at 3.98. Howeve r her free T4 is normal at 1.1. Chest x-ray is normal. Left lower extremity Doppler is negat yocasta. Emergency Department Course and Treatment: Patient is restin g comfortably without complaint. Treatment Plan: Discussed the patient at this time I do not have an explanation for her swelling. She will be discharged with instructions to follow -up with her primary care physician in 3 to 5 days for another exam. [facility] to the [facility] for any worsening symptoms. Disposition: To home in improved and stable condition. Impression: 1. Peripheral edema. 2. Sinus tachycardia. This note was generated with [employer] dictation software. It m ay contain incorrect words, spelling, and punctuation that were not noted in review of t he chart prior to signing ED Disposition - Plan for ED Patient: Instructions: ED Peripheral Edema, Bilateral Referrals: Hugo Nava MD [Primary Care Provider] - 3-5 Days What to do if you have Problems For any increased pain, shortness of breath, bleeding, nause a or vomiting, chest pain, or any unexpected problems, contact your Primary Care Provider. [facility] Doctors Registry ([phone]) or report to the closest Emergency Room. Call 911 if necessary. 08/29/19 6365 Date Willian Duff MD Cosigner Signature (If Indicated): Date CC: Hugo Nava MD Also recently had an episode of vaginal bleeding. See previo us notes. Jazlyn self adjusts medicine and was taking estrogen and had not be en taking progesterone initially as advised previously. She had stoppe d it and then started progesterone and bled. She was also taking metformin since the question arose whether she was postmenopausal for actually h ad amenorrhea due to PCOS. BRAID FOLDER and I recommended endometrial biopsy. She h as declined and instead wants to stop hormones and get a follow up pelvi c us. She does follow up with endo again in September. Was having some swelling. She states it is not not as bad. O ne leg was enlarged. She states she is having multiple symptoms of skin sensitivi ty, fluid retention related to not being on the hormones. She has burning mouth. She feels like acid is burning her a live. She feels her skin is dry. When she is on estrogen she feels better. Again, reiterated though that she cannot take unopposed estr ogen and we have to sort out the bleeding first. Discussed considering functional medication consult etc. She will consider Asks me to check vitamins and for carcinoid. Reinforced need to follow with obstetrics and gynecology professor and endo and to hold on hormone therapy unless they advise her otherwise. Component Latest Ref Rng AND Units 08/16/2019 T4 5.5 - 10.2 ug/dL 5.5 T4 Uptake 0.91 - 1.19 1.08 FTI 5.3 - 10.8 ug/dL 5.1 (L) Testosterone 8 - 60 ng/dL 22 Testosterone Free 0.06 - 0.92 ng/dL 0.22 Estradiol 17B pg/mL <25 Estrone pg/mL 23.7 Progesterone ng/mL 0.3 TSH 0.270 - 4.200 uU/mL 2.720 T3 79 - 165 ng/dL 102 US: 1. ?There is thickening of the endometrium. ?In a postmenopa usal patient this can be seen with endometrial hyperplasia or endometrial cancer. ? However the patient is on hormone therapy and this should be correlated with these findings. 2. ?Nabothian cyst 3. ?Simple appearing cyst in the RIGHT ovary MEDICATIONS: Current Outpatient Medications Medication Sig - bumetanide (BUMEX) 0.5 mg tablet Take 1 tablet by mouth on ce daily. prn - metFORMIN (GLUCOPHAGE) 500 mg tablet Take 1 tablet by mout h twice daily with meals. . - SYNTHROID 137 mcg tablet Take 1 tablet by mouth once daily . - L.acidoph-B.lactis-B.longum (FLORAJEN3) 460 mg (7.5-6- 1.5 bill. cell) cap Take 1 capsule by mouth once daily. - lancets (FREESTYLE LANCETS) 28 gauge misc USE FOUR TIMES D AILY DIRECTED - blood sugar diagnostic (FREESTYLE TEST) test strip TEST fo ur times a day - Blood-Glucose Meter (FREESTYLE LITE METER) monitoring kit 1 Each as needed. - Blood-Glucose Meter (FREESTYLE LITE METER) monitoring kit 1 Each as needed. No current facility-administered medications for this visit. ALLERGIES: ALLERGIES Allergen Reactions - Codeine GI Upset, Vomiting - Percocet [Oxycodone* Vomiting - Solumedrol [Methylp* Mental Status Change Made her rageful - Vicodin [Hydrocodon* Vomiting - Combipatch [Estradi* Intolerance feels wired, muscles hurt, lips/mouth burn, feels like asthm a flaring, nausea, dizziness. - Metformin Other: See Comments Myalgias. - Pepcid [Famotidine * Other: See Comments Dry eyes, mouth, rash, itching, anxiety - Tapazole [Methimazo* Hives PAST MEDICAL HISTORY Diagnosis Date - Abdominal pain, chronic, right upper quadrant - Asthma As a baby, then I outgrew it. - Cystocele, midline 05/13/2009 - Delayed emergence from anesthesia 09/27/2014 - Depression - Excessive or frequent menstruation Heavy periods - HSDD 10/21/2011 - Hypothyroidism should be on FRANCESCO synthroid. - Irregular menstrual cycle Irregular periods - menopause age 43 2009 in 2013 FSH 47 - Moderate dysplasia of cervix 2001 - Parent-child conflict 03/07/2013 - PMH - PAST MEDICAL HISTORY OF thyroid ablation/hypothyroid - Postmenopausal HRT (hormone replacement therapy) 12/13/2015 in 2015 took femHRT cried 11/2015 offer climara/prometrium - Rectocele 05/13/2009 - SVT (supraventricular tachycardia) (HCC) - Syncope 05/14/2013 -Reported that she had one episode of syncope at the OSH. -H ad the episode when she stood up. -No urinary incontinence or jerki ng movements. -Never had syncope episode before. -Last Echo stress test fo r her chest pain was in 2011 (normal) Plan: -Repeat the Echo: normal - T he left ventricle is normal in size. Left ventricular systolic funct ion is normal. EF = 63 ? 5% (2D biplane) - The right ventricle is normal in size. Right ventricular systolic function is normal. - There are no sign ificant valvular abnormalities. - Prior echocardiogram performed on 11/10/11 (stress echo). No significant change. - Tele - Tobacco use - Weight gain PAST SURGICAL HISTORY Procedure Laterality Date - CERVIX UTERI CONIZA LP ELCTRO EXCI 2001 LEEP-Cervix - COLONOSCOPY 04/2017 says nl - EGD W/O OR W/BRUSH/WASH 01/22/2014,2009 EGD - LAPAROSCOPIC CHOLEYCYSTECTOMY 05/19/2011 - LIGATE FALLOPIAN TUBE 2003 Tubal ligation - PAST SURGICAL HISTORY OF 1998 tubal - PAST SURGICAL HISTORY OF 2001 thyroid ablation - REMOVAL OF OVARY(S) 09/2014 laparoscopic left, CW, umbilical/upper abdominal adhesions s een benign FAMILY HISTORY Problem Relation Age of Onset - Diabetes Mother Type 2 stroke - Colon Cancer Father age 64 [place] - Diabetes Father Type 2 - Hypertension Father - Coronary Artery Disease Father Hx of [place] - Thyroid Sister hx of parathyroid disease/ hx of fibroids - other (healthy) Brother - other (healthy) Brother - Allergies Daughter - other (healthy) Daughter - other (healthy) Son - other (healthy) Son - other (healthy) Son - other (healthy) Son - Colon Cancer Paternal Aunt x5 - Colon Cancer Paternal Uncle x8 Social History Tobacco Use - Smoking status: Current Every Day Smoker Packs/day: 0.50 Types: Cigarettes Start date: 1985 - Smokeless tobacco: Never Used - Tobacco comment: Has quit intermittently, And I'm working on it now. 1st AM cigarette 10-15 minutes after awake. Most desired is that one, or last of day before bed. Prior 8 month quits, resumed after p mary completed. TO Substance Use Topics - Alcohol use: No - Drug use: No Reviewed current medications, allergies, past medical histor y, surgical history, family history and social history today. REVIEW OF SYSTEMS All other reviewed and negative other than HPI. VITALS: LMP 03/10/2010 Last 4 Encounter Wt Readings: Date: Wt: 06/19/2019 91.2 kg (201 lb) 06/14/2019 91.6 kg (202 lb) 05/24/2019 90.3 kg (199 lb) 05/12/2019 89.8 kg (198 lb) PHYSICAL EXAMINATION: Patient is alert and oriented during visit. Answers appropri ately. Breathing normally. Does not appear ill. ASSESSMENT/PLAN: 1. [place] - ICD9: 782.62, ICD10: R23.2 (primary diagnosis) - Check labs. Reinforced need to follow with endo and obstetrics and gynecology professor and follow their recommendations. Suggested we could consider referral to functional medicine at this point. She will consider. Reinforced need to hold on any hormone therapy until her end ometrial thickness and Bleeding is worked out. She again is aware of risks of taking and using unopposed es trogen with an intact uterus. - HIAA-5 QUANT 24H UR - FERRITIN BLD - VITAMIN B12 BLOOD - FOLATE SERUM - IRON + TIBC - VITAMIN B6/PYRIDOXIN 2. Burning sensation of mouth - ICD9: 528.9, ICD10: R20.8 - recheck labs. - FERRITIN BLD - VITAMIN B12 BLOOD - FOLATE SERUM - IRON + TIBC - VITAMIN B6/PYRIDOXIN 3. Burning sensation of skin - ICD9: 782.0, ICD10: R20. - FERRITIN BLD - VITAMIN B12 BLOOD - FOLATE SERUM - IRON + TIBC - VITAMIN B6/PYRIDOXIN Hugo Nava MD progress on 2019-07 PROGRESS HNO ID: [id number] Normal 08-21-2019 [place] Author: Ofe Randhawa) [facility] Service: ? [place] Author Type: Nurse Practitioner ([id number]) Type: Progress Notes Filed: 08/21/2019 9:45 AM Note Text: This Team Access Model visit is a phone encounter. It requir ed patient-provider interaction for the medical decision making as documented below. Jazlyn Garzon is a 53 year old female who presents to discuss EMB that was schedule for today. HPI: pt states that she is still unsure about having the EMB done. She has been researching more about the hormones and believes that t he thicken lining is due to her not taking the progesterone along with the estrogen. She would like to wait to take the progesterone for awhile a nd see if that would help with thinning the lining. PAST MEDICAL HISTORY Diagnosis Date - Abdominal pain, chronic, right upper quadrant - Asthma As a baby, then I outgrew it. - Cystocele, midline 05/13/2009 - Delayed emergence from anesthesia 09/27/2014 - Depression - Excessive or frequent menstruation Heavy periods - HSDD 10/21/2011 - Hypothyroidism should be on FRANCESCO synthroid. - Irregular menstrual cycle Irregular periods - menopause age 43 2009 in 2012 FSH 47 - Moderate dysplasia of cervix 2001 - Parent-child conflict 03/07/2013 - PMH - PAST MEDICAL HISTORY OF thyroid ablation/hypothyroid - Postmenopausal HRT (hormone replacement therapy) 12/13/2015 in 2014 took femHRT cried 11/2015 offer climara/prometrium - Rectocele 05/13/2009 - SVT (supraventricular tachycardia) (HCC) - Syncope 05/14/2013 -Reported that she had one episode of syncope at the OSH. -H ad the episode when she stood up. -No urinary incontinence or jerki ng movements. -Never had syncope episode before. -Last Echo stress test fo r her chest pain was in 2011 (normal) Plan: -Repeat the Echo: normal - T he left ventricle is normal in size. Left ventricular systolic funct ion is normal. EF = 63 ? 5% (2D biplane) - The right ventricle is normal in size. Right ventricular systolic function is normal. - There are no sign ificant valvular abnormalities. - Prior echocardiogram performed on 11/10/11 (stress echo). No significant change. - Tele - Tobacco use - Weight gain PAST SURGICAL HISTORY Procedure Laterality Date - CERVIX UTERI CONIZA LP ELCTRO EXCI 2001 LEEP-Cervix - COLONOSCOPY 04/2017 says nl - EGD W/O OR W/BRUSH/WASH 01/22/2014,2009 EGD - LAPAROSCOPIC CHOLEYCYSTECTOMY 05/19/2011 - LIGATE FALLOPIAN TUBE 2003 Tubal ligation - PAST SURGICAL HISTORY OF 1998 tubal - PAST SURGICAL HISTORY OF 2001 thyroid ablation - REMOVAL OF OVARY(S) 09/2014 laparoscopic left, CW, umbilical/upper abdominal adhesions s een benign FAMILY HISTORY Problem Relation Age of Onset - Diabetes Mother Type 2 stroke - Colon Cancer Father age 64 [place] - Diabetes Father Type 2 - Hypertension Father - Coronary Artery Disease Father Hx of [place] - Thyroid Sister hx of parathyroid disease/ hx of fibroids - other (healthy) Brother - other (healthy) Brother - Allergies Daughter - other (healthy) Daughter - other (healthy) Son - other (healthy) Son - other (healthy) Son - other (healthy) Son - Colon Cancer Paternal Aunt x5 - Colon Cancer Paternal Uncle x8 Social History Tobacco Use - Smoking status: Current Every Day Smoker Packs/day: 0.50 Types: Cigarettes Start date: 1985 - Smokeless tobacco: Never Used - Tobacco comment: Has quit intermittently, And I'm working on it now. 1st AM cigarette 10-15 minutes after awake. Most desired is that one, or last of day before bed. Prior 8 month quits, resumed after p regnancies completed. TO Substance Use Topics - Alcohol use: No - Drug use: No Current Outpatient Medications Medication Sig - miSOPROStol (CYTOTEC) 200 mcg tablet Use 2 tablets vaginal ly as directed. The night before the procedure and the morning of the procedure. - bumetanide (BUMEX) 0.5 mg tablet Take 1 tablet by mouth on ce daily. prn - metFORMIN (GLUCOPHAGE) 500 mg tablet Take 1 tablet by mout h twice daily with meals. . - SYNTHROID 137 mcg tablet Take 1 tablet by mouth once daily . - L.acidoph-B.lactis-B.longum (FLORAJEN3) 460 mg (7.5-6- 1.5 bill. cell) cap Take 1 capsule by mouth once daily. - lancets (FREESTYLE LANCETS) 28 gauge misc USE FOUR TIMES D AILY DIRECTED - blood sugar diagnostic (FREESTYLE TEST) test strip TEST fo ur times a day - Blood-Glucose Meter (FREESTYLE LITE METER) monitoring kit 1 Each as needed. - Blood-Glucose Meter (FREESTYLE LITE METER) monitoring kit 1 Each as needed. No current facility-administered medications for this visit. Allergies As of Date: 08/21/2019 Allergen Noted Reaction CODEINE 09/27/2014 GI Upset and Vomiting PERCOCET [OXYCODONE-ACETAMINOPHEN]07/17/2011 Vomiting SOLUMEDROL [METHYLPREDNISOLONE SO*01/22/2014 Mental Status C jolynn VICODIN [HYDROCODONE-ACETAMINOPHE*07/17/2011 Vomiting COMBIPATCH [ESTRADIOL-NORETHINDRO*10/26/2016 Intolerance METFORMIN 10/28/2017 Other: See Comments PEPCID [FAMOTIDINE (PF)] 07/07/2016 Other: See Comments TAPAZOLE [METHIMAZOLE] 10/14/2005 Hives Fully Assessed 08/17/2019 REVIEW OF SYSTEMS Expanded ROS: N/A Allergies and current medication updated:Yes EXAM: LMP 03/10/2010 GENERAL: pleasant ASSESSMENT/PLAN: 1. Endometrial thickening on ultrasound - ICD9: 793.5, ICD10 : R93.89 - After a long discuss with the pt she would like to use the progesterone BID and have the US repeating in 2 months vs having the EMB done. Instructed pt that if she does have another bleeding episode that the EMB should be done. Pt states that the bleeding is extremely lig ht at this point. - We discussed seeing Functional Medicine, she states that s he had seen them in the past and would not go back - She has a follow up with Endocrinology at the end of September. - Pelvic US ordered - 42 mins spent on phone visit Ofe Garcia APRN.DHIRAJ lawrence on 2019-08-21 MELINDA Telephone (OBGYWM) Normal 08-21-2019 [place] JAZLYN Jones ([id number]) 1965 F [place] Date Time Provider Department ([id number]) 08/21/19 OFE GARCIA (DHIRAJ) OBGYWM During your visit today, we recorded the following informati on about you: Marina Maxwell Pss 08/21/2019 1:09 PM Signed Left VM to schedule Pelvis Ultrasound in 2 mths.Marina Carrillo hers Pss Allergies As of Date: 08/21/2019 Noted Allergy Reaction CODEINE 09/27/2014 8 - GI Upset 11 - Vomiting PERCOCET (OXYCODONE-ACETAMINOPHEN)07/17/2011 11 - Vomiting SOLUMEDROL (METHYLPREDNISOLONE SO*01/22/2014 1 - Mental Stat us Change Comments: Made her rageful VICODIN (HYDROCODONE-ACETAMINOPHE*07/17/2011 11 - Vomiting COMBIPATCH (ESTRADIOL-NORETHINDRO*10/26/2016 5 - Intolerance Comments: feels wired, muscles hurt, lips/mouth burn, feels like asthma flaring, nausea, dizziness. METFORMIN 10/28/2017 14 - Other: See Comments Comments: Myalgias. PEPCID (FAMOTIDINE (PF)) 07/07/2016 14 - Other: See Comments Comments: Dry eyes, mouth, rash, itching, anxiety TAPAZOLE (METHIMAZOLE) 10/14/2005 4 - Hives Date Reviewed: 08/21/2019 Reviewed by: Ofe ([facility]) Yoel - Fully Assessed Reason for Visit: Future Appointment [256] Prescriptions as of 08/21/2019 Sig: BUMETANIDE 0.5 MG TABLET Take 1 tablet by mouth once d* METFORMIN 500 MG TABLET Take 1 tablet by mouth twice * SYNTHROID 137 MCG TABLET Take 1 tablet by mouth once d* FLORAJEN3 460 MG (7.5-6-1.5 B* Take 1 capsule by mouth once * LANCETS 28 GAUGE USE FOUR TIMES DAILY DIREC* BLOOD SUGAR DIAGNOSTIC STRIPS TEST four times a day BLOOD-GLUCOSE METER KIT 1 Each as needed. BLOOD-GLUCOSE METER KIT 1 Each as needed. Problem List As Of Date 08/21/2019 Noted Resolved Postablative hypothyroidism [E89.0] 04/06/2006 More... Excessive or frequent menstruation [N92.0] 01/05/20072011 Irregular menstrual cycle [N92.6] 01/05/2007 10/06/2011 Unspecified aftercare [Z51.89] 05/26/2011 10/06/2011 Abdominal pain, chronic, right upper quadrant [* 10/06/2011 Post-menopause [Z78.0] 10/21/2011 03/18/2015 More... URI (upper respiratory infection) [J06.9] 05/14/2013 015 More... Pneumonia [J18.9] 05/14/2013 07/11/2014 More... More... More... More... More... Adrenal disorder [E27.9] 05/24/2013 07/11/2014 hx of low vitamin D [E55.9] 06/01/2013 Panic disorder with agoraphobia [F40.01] 07/10/2013 Chronic fatigue fibromyalgia syndrome [R53.82, *07/12/2013 Marital conflict [Z63.0] 08/30/2013 07/11/2014 Blood pressure elevated without history of HTN *09/06/2014 Impaired glucose tolerance [R73.02] 09/06/2014 More... Ovarian cyst [N83.209] 09/24/2014 03/18/2015 SVT (supraventricular tachycardia) (HCC) [I47.1]09/27/2014 Delayed emergence from anesthesia [T88.59XA] 09/27/201409/25 On home oxygen therapy [Z99.81] 09/27/2014 12/13/2015 PTSD (post-traumatic stress disorder) [F43.10] 11/01/2014 Attention deficit hyperactivity disorder (ADHD)*11/08/2014 Recurrent major depressive disorder, in partial*07/09/2015 Encounter for screening mammogram for malignant*12/12/2015 0 11/09/2016 menopause age 43 [N95.1] Tobacco use [Z72.0] Postmenopausal HRT (hormone replacement therapy*12/13/2015 0 11/09/2016 Weight gain [R63.5] 10/19/2017 GERD without esophagitis [K21.9] 05/12/2017 More... Simple chronic bronchitis (HCC) [J41.0] 12/01/2017 More... Irritable bowel syndrome with diarrhea [K58.0] 12/14/2017 Systemic lupus erythematosus (HCC) [M32.9] 02/14/2018 Burning sensation of mouth [R20.8] 02/16/2018 Burning sensation of skin [R20.8] 02/16/2018 Sleep difficulties [G47.9] 02/16/2018 Mitral valve prolapse [I34.1] 02/23/2018 More... Screening for malignant neoplasm of the cervix *06/20/2018 Visit for pelvic exam [Z01.419] 06/20/2018 Encounter for screening mammogram for malignant*06/20/2018 Estrogen deficiency [E28.39] 06/20/2018 Adrenal adenoma, left [D35.02] 08/25/2018 More... Encounter Status:Closed by CARMARINA GOINS on 08/21/19 DHIRAJN Telephone (OBGYWM) Normal 08-21-2019 [place] JAZLYN Jones ([id number]) 1965 F [place] Date Time Provider Department ([id number]) 08/21/19 OFE GARCIA ([facility]) OBGYWM During your visit today, we recorded the following informati on about you: Ofe Garcia APRN.PULLEY MAN 08/21/2019 9:46 AM Signed Please call pt to schedule pelvic US in 2 months. Thanks, Re anand Garcia APRN.DHIRAJ [facility] 08/23/2019 1:24 PM Signed Completed. Allergies As of Date: 08/21/2019 Noted Allergy Reaction CODEINE 09/27/2014 8 - GI Upset 11 - Vomiting PERCOCET (OXYCODONE-ACETAMINOPHEN)07/17/2011 11 - Vomiting SOLUMEDROL (METHYLPREDNISOLONE SO*01/22/2014 1 - Mental Stat us Change Comments: Made her rageful VICODIN (HYDROCODONE-ACETAMINOPHE*07/17/2011 11 - Vomiting COMBIPATCH (ESTRADIOL-NORETHINDRO*10/26/2016 5 - Intolerance Comments: feels wired, muscles hurt, lips/mouth burn, feels like asthma flaring, nausea, dizziness. METFORMIN 10/28/2017 14 - Other: See Comments Comments: Myalgias. PEPCID (FAMOTIDINE (PF)) 07/07/2016 14 - Other: See Comments Comments: Dry eyes, mouth, rash, itching, anxiety TAPAZOLE (METHIMAZOLE) 10/14/2005 4 - Hives Date Reviewed: 08/21/2019 Reviewed by: Ofe ChaidezProduction Engineer) Yoel - Fully Assessed Reason for Visit: Appointment [186] Prescriptions as of 08/21/2019 Sig: BUMETANIDE 0.5 MG TABLET Take 1 tablet by mouth once d* METFORMIN 500 MG TABLET Take 1 tablet by mouth twice * SYNTHROID 137 MCG TABLET Take 1 tablet by mouth once d* FLORAJEN3 460 MG (7.5-6-1.5 B* Take 1 capsule by mouth once * LANCETS 28 GAUGE USE FOUR TIMES DAILY DIREC* BLOOD SUGAR DIAGNOSTIC STRIPS TEST four times a day BLOOD-GLUCOSE METER KIT 1 Each as needed. BLOOD-GLUCOSE METER KIT 1 Each as needed. Problem List As Of Date 08/21/2019 Noted Resolved Postablative hypothyroidism [E89.0] 04/06/2006 More... Excessive or frequent menstruation [N92.0] 01/05/20072011 Irregular menstrual cycle [N92.6] 01/05/2007 10/06/2011 Unspecified aftercare [Z51.89] 05/26/2011 10/06/2011 Abdominal pain, chronic, right upper quadrant [* 10/06/2011 Post-menopause [Z78.0] 10/21/2011 03/18/2015 More... URI (upper respiratory infection) [J06.9] 05/14/2013 015 More... Pneumonia [J18.9] 05/14/2013 07/11/2014 More... More... More... More... More... Adrenal disorder [E27.9] 05/24/2013 07/11/2014 hx of low vitamin D [E55.9] 06/01/2013 Panic disorder with agoraphobia [F40.01] 07/10/2013 Chronic fatigue fibromyalgia syndrome [R53.82, *07/12/2013 Marital conflict [Z63.0] 08/30/2013 07/11/2014 Blood pressure elevated without history of HTN *09/06/2014 Impaired glucose tolerance [R73.02] 09/06/2014 More... Ovarian cyst [N83.209] 09/24/2014 03/18/2015 SVT (supraventricular tachycardia) (HCC) [I47.1]09/27/2014 Delayed emergence from anesthesia [T88.59XA] 09/27/201409/25 On home oxygen therapy [Z99.81] 09/27/2014 12/13/2015 PTSD (post-traumatic stress disorder) [F43.10] 11/01/2014 Attention deficit hyperactivity disorder (ADHD)*11/08/2014 Recurrent major depressive disorder, in partial*07/09/2015 Encounter for screening mammogram for malignant*12/12/2015 0 11/09/2016 menopause age 43 [N95.1] Tobacco use [Z72.0] Postmenopausal HRT (hormone replacement therapy*12/13/2015 0 11/09/2016 Weight gain [R63.5] 10/19/2017 GERD without esophagitis [K21.9] 05/12/2017 More... Simple chronic bronchitis (HCC) [J41.0] 12/01/2017 More... Irritable bowel syndrome with diarrhea [K58.0] 12/14/2017 Systemic lupus erythematosus (HCC) [M32.9] 02/14/2018 Burning sensation of mouth [R20.8] 02/16/2018 Burning sensation of skin [R20.8] 02/16/2018 Sleep difficulties [G47.9] 02/16/2018 Mitral valve prolapse [I34.1] 02/23/2018 More... Screening for malignant neoplasm of the cervix *06/20/2018 Visit for pelvic exam [Z01.419] 06/20/2018 Encounter for screening mammogram for malignant*06/20/2018 Estrogen deficiency [E28.39] 06/20/2018 Adrenal adenoma, left [D35.02] 08/25/2018 More... Encounter Status:Closed by VÍCTOR LAKHANI on 08/23/19 obsolete on 2019-07 OBSOLETE Refill (OBGYWM) Normal 08-20-2019 [facility] JAZLYN GARZON ([id number]) 1965 [facility] Date Time Provider Department ([id number]) 08/20/19 OFE GARCIA ([facility]) OBGYWM During your visit today, we recorded the following informati on about you: Allergies As of Date: 08/20/2019 Noted Allergy Reaction CODEINE 09/27/2014 8 - GI Upset 11 - Vomiting PERCOCET (OXYCODONE-ACETAMINOPHEN)07/17/2011 11 - Vomiting SOLUMEDROL (METHYLPREDNISOLONE SO*01/22/2014 1 - Mental Stat us Change Comments: Made her rageful VICODIN (HYDROCODONE-ACETAMINOPHE*07/17/2011 11 - Vomiting COMBIPATCH (ESTRADIOL-NORETHINDRO*10/26/2016 5 - Intolerance Comments: feels wired, muscles hurt, lips/mouth burn, feels like asthma flaring, nausea, dizziness. METFORMIN 10/28/2017 14 - Other: See Comments Comments: Myalgias. PEPCID (FAMOTIDINE (PF)) 07/07/2016 14 - Other: See Comments Comments: Dry eyes, mouth, rash, itching, anxiety TAPAZOLE (METHIMAZOLE) 10/14/2005 4 - Hives Date Reviewed: 08/17/2019 Reviewed by: Ofe ([facility]) Yoel - Fully Assessed Reason for Visit: Refill Request [94] Prescriptions as of 08/20/2019 Sig: X MISOPROSTOL 200 MCG TABLET Use 2 tablets vaginally as di* BUMETANIDE 0.5 MG TABLET Take 1 tablet by mouth once d* METFORMIN 500 MG TABLET Take 1 tablet by mouth twice * SYNTHROID 137 MCG TABLET Take 1 tablet by mouth once d* FLORAJEN3 460 MG (7.5-6-1.5 B* Take 1 capsule by mouth once * LANCETS 28 GAUGE USE FOUR TIMES DAILY DIREC* BLOOD SUGAR DIAGNOSTIC STRIPS TEST four times a day BLOOD-GLUCOSE METER KIT 1 Each as needed. BLOOD-GLUCOSE METER KIT 1 Each as needed. Problem List As Of Date 08/20/2019 Noted Resolved Postablative hypothyroidism [E89.0] 04/06/2006 More... Excessive or frequent menstruation [N92.0] 01/05/20072011 Irregular menstrual cycle [N92.6] 01/05/2007 10/06/2011 Unspecified aftercare [Z51.89] 05/26/2011 10/06/2011 Abdominal pain, chronic, right upper quadrant [* 10/06/2011 Post-menopause [Z78.0] 10/21/2011 03/18/2015 More... URI (upper respiratory infection) [J06.9] 05/14/2013 015 More... Pneumonia [J18.9] 05/14/2013 07/11/2014 More... More... More... More... More... Adrenal disorder [E27.9] 05/24/2013 07/11/2014 hx of low vitamin D [E55.9] 06/01/2013 Panic disorder with agoraphobia [F40.01] 07/10/2013 Chronic fatigue fibromyalgia syndrome [R53.82, *07/12/2013 Marital conflict [Z63.0] 08/30/2013 07/11/2014 Blood pressure elevated without history of HTN *09/06/2014 Impaired glucose tolerance [R73.02] 09/06/2014 More... Ovarian cyst [N83.209] 09/24/2014 03/18/2015 SVT (supraventricular tachycardia) (HCC) [I47.1]09/27/2014 Delayed emergence from anesthesia [T88.59XA] 09/27/201409/25 On home oxygen therapy [Z99.81] 09/27/2014 12/13/2015 PTSD (post-traumatic stress disorder) [F43.10] 11/01/2014 Attention deficit hyperactivity disorder (ADHD)*11/08/2014 Recurrent major depressive disorder, in partial*07/09/2015 Encounter for screening mammogram for malignant*12/12/2015 0 11/09/2016 menopause age 43 [N95.1] Tobacco use [Z72.0] Postmenopausal HRT (hormone replacement therapy*12/13/2015 0 11/09/2016 Weight gain [R63.5] 10/19/2017 GERD without esophagitis [K21.9] 05/12/2017 More... Simple chronic bronchitis (HCC) [J41.0] 12/01/2017 More... Irritable bowel syndrome with diarrhea [K58.0] 12/14/2017 Systemic lupus erythematosus (HCC) [M32.9] 02/14/2018 Burning sensation of mouth [R20.8] 02/16/2018 Burning sensation of skin [R20.8] 02/16/2018 Sleep difficulties [G47.9] 02/16/2018 Mitral valve prolapse [I34.1] 02/23/2018 More... Screening for malignant neoplasm of the cervix *06/20/2018 Visit for pelvic exam [Z01.419] 06/20/2018 Encounter for screening mammogram for malignant*06/20/2018 Estrogen deficiency [E28.39] 06/20/2018 Adrenal adenoma, left [D35.02] 08/25/2018 More... Encounter Status:Closed by KALLI PAIGE LPN on 08/21/19 us female pelvis transvag on 2019-08-17 US FEMALE PELVIS * * *Final Report* * * Normal 08-17-2019 [facility] TRANSVAG DATE OF EXAM: Aug 17 2019 11:01AM [place] ([id number]) WRU 1060 - US FEMALE PELVIS TRANSVAG / PROCEDURE REASON: Abnormal uterine bleeding * * * * Physician Interpretation * * * * EXAMINATION: TRANSVAGINAL AND LIMITED TRANSABDOMINAL PELVIC ULTRASOUND HISTORY: Abnormal uterine bleeding patient presently on horm one therapy TECHNIQUE: Sonography of the pelvis was performed by transva ginal and transabdominal (limited) techniques.Images were obtained and stored in a permanent archive. MQ: [id number] COMPARISON: Ultrasound 05/12/2019 FLMP: 10 years ago RESULT: Uterus size: 7.5 x 5.6 x 3.9 cm -Orientation: Anteverted -Myometrium: Heterogeneous texture. Question of a dominant hyperechoic fibroid in the fundal region. This measures 1.3 cm in diameter. -Endometrial echo complex: 0.7 cm -Cervix: Mildly complex nabothian cyst Right ovary: 2.9 x 1.7 x 2.0 cm. Simple cyst in the RIGHT ov job 9 x 7 x 6 mm previously 8 x 7 x 7 mm. Left ovary: Absent due to previous surgery Pelvis free fluid: None seen IMPRESSION: 1. There is thickening of the endometrium. In a postmenopaus al patient this can be seen with endometrial hyperplasia or endometrial cancer. However the patient is on hormone therapy and this should be correlated with these findings. 2. Nabothian cyst 3. Simple appearing cyst in the RIGHT ovary Audiovisual Technician: JEANNA Transcribe Date/Time: Aug 17 2019 11:06A Dictated by : ELLY BROWN DO This examination was interpreted and the report reviewed and electronically signed by: ELLY BROWN DO on Aug 17 2019 11:09AM EST [id number] progress on 2019-07 PROGRESS HNO ID: [id number] Normal 08-17-2019 [place] Author: Ofe Randhawa) [facility] Service: ? [place] Author Type: Nurse Practitioner ([id number]) Type: Progress Notes Filed: 08/17/2019 2:27 PM Note Text: This Team Access Model visit is a virtual encounter. It requ ired patient-provider interaction for the medical decision making as documented below. Jazlyn Garzon is a 53 year old female who presents for discus preston regarding her pelvic US HPI: pt wanting to discuss her US results and if she really needs to have the EMB done. PAST MEDICAL HISTORY Diagnosis Date - Abdominal pain, chronic, right upper quadrant - Asthma As a baby, then I outgrew it. - Cystocele, midline 05/13/2009 - Delayed emergence from anesthesia 09/27/2014 - Depression - Excessive or frequent menstruation Heavy periods - HSDD 10/21/2011 - Hypothyroidism should be on FRANCESCO synthroid. - Irregular menstrual cycle Irregular periods - menopause age 43 2009 in 2012 FSH 47 - Moderate dysplasia of cervix 2001 - Parent-child conflict 03/07/2013 - PMH - PAST MEDICAL HISTORY OF thyroid ablation/hypothyroid - Postmenopausal HRT (hormone replacement therapy) 12/13/2015 in 2014 took femHRT cried 11/2015 offer climara/prometrium - Rectocele 05/13/2009 - SVT (supraventricular tachycardia) (HCC) - Syncope 05/14/2013 -Reported that she had one episode of syncope at the OSH. -H ad the episode when she stood up. -No urinary incontinence or jerki ng movements. -Never had syncope episode before. -Last Echo stress test fo r her chest pain was in 2011 (normal) Plan: -Repeat the Echo: normal - T he left ventricle is normal in size. Left ventricular systolic funct ion is normal. EF = 63 ? 5% (2D biplane) - The right ventricle is normal in size. Right ventricular systolic function is normal. - There are no sign ificant valvular abnormalities. - Prior echocardiogram performed on 11/10/11 (stress echo). No significant change. - Tele - Tobacco use - Weight gain PAST SURGICAL HISTORY Procedure Laterality Date - CERVIX UTERI CONIZA LP ELCTRO EXCI 2001 LEEP-Cervix - COLONOSCOPY 04/2017 says nl - EGD W/O OR W/BRUSH/WASH 01/22/2014,2009 EGD - LAPAROSCOPIC CHOLEYCYSTECTOMY 05/19/2011 - LIGATE FALLOPIAN TUBE 2003 Tubal ligation - PAST SURGICAL HISTORY OF 1998 tubal - PAST SURGICAL HISTORY OF 2001 thyroid ablation - REMOVAL OF OVARY(S) 09/2014 laparoscopic left, CW, umbilical/upper abdominal adhesions s een benign FAMILY HISTORY Problem Relation Age of Onset - Diabetes Mother Type 2 stroke - Colon Cancer Father age 64 [place] - Diabetes Father Type 2 - Hypertension Father - Coronary Artery Disease Father Hx of [place] - Thyroid Sister hx of parathyroid disease/ hx of fibroids - other (healthy) Brother - other (healthy) Brother - Allergies Daughter - other (healthy) Daughter - other (healthy) Son - other (healthy) Son - other (healthy) Son - other (healthy) Son - Colon Cancer Paternal Aunt x5 - Colon Cancer Paternal Uncle x8 Social History Tobacco Use - Smoking status: Current Every Day Smoker Packs/day: 0.50 Types: Cigarettes Start date: 1985 - Smokeless tobacco: Never Used - Tobacco comment: Has quit intermittently, And I'm working on it now. 1st AM cigarette 10-15 minutes after awake. Most desired is that one, or last of day before bed. Prior 8 month quits, resumed after p regnancies completed. TO Substance Use Topics - Alcohol use: No - Drug use: No Current Outpatient Medications Medication Sig - miSOPROStol (CYTOTEC) 200 mcg tablet Use 2 tablets vaginal ly as directed. The night before the procedure and the morning of the procedure. - bumetanide (BUMEX) 0.5 mg tablet Take 1 tablet by mouth on ce daily. prn - metFORMIN (GLUCOPHAGE) 500 mg tablet Take 1 tablet by mout h twice daily with meals. . - SYNTHROID 137 mcg tablet Take 1 tablet by mouth once daily . - L.acidoph-B.lactis-B.longum (FLORAJEN3) 460 mg (7.5-6- 1.5 bill. cell) cap Take 1 capsule by mouth once daily. - lancets (FREESTYLE LANCETS) 28 gauge misc USE FOUR TIMES D AILY DIRECTED - blood sugar diagnostic (FREESTYLE TEST) test strip TEST fo ur times a day - Blood-Glucose Meter (FREESTYLE LITE METER) monitoring kit 1 Each as needed. - Blood-Glucose Meter (FREESTYLE LITE METER) monitoring kit 1 Each as needed. No current facility-administered medications for this visit. Allergies As of Date: 08/17/2019 Allergen Noted Reaction CODEINE 09/27/2014 GI Upset and Vomiting PERCOCET [OXYCODONE-ACETAMINOPHEN]07/17/2011 Vomiting SOLUMEDROL [METHYLPREDNISOLONE SO*01/22/2014 Mental Status C hange VICODIN [HYDROCODONE-ACETAMINOPHE*07/17/2011 Vomiting COMBIPATCH [ESTRADIOL-NORETHINDRO*10/26/2016 Intolerance METFORMIN 10/28/2017 Other: See Comments PEPCID [FAMOTIDINE (PF)] 07/07/2016 Other: See Comments TAPAZOLE [METHIMAZOLE] 10/14/2005 Hives Fully Assessed 08/15/2019 REVIEW OF SYSTEMS Expanded ROS: N/A Allergies and current medication updated:Yes EXAM: LMP 03/10/2010 GENERAL: pleasant, female in no apparent distress HEENT: Normocephalic and atraumatic CHEST: Normal inspiratory effort NEURO: alert and oriented x3,exam grossly non-focal ASSESSMENT/PLAN: 1. Endometrial thickening on ultrasound - ICD9: 793.5, ICD10 : R93.89 After discussing the result pt has agreed to have the EMB do ne for the thickening uterine lining. She is scheduled on 08/20 for the EMB. 30 mins spent with visit. Ofe Garcia APRN.PULLEY MAN PROGRESS HNO ID: [id number] Normal 08-17-2019 [place] Author: Mireya Leon) [facility] Service: ? [place] Author Type: Accounting Tutor ([id number]) Type: Progress Notes Filed: 08/17/2019 11:02 AM Note Text: Radiology Service Progress Note PATIENT NAME: Jazlyn Garzon DATE OF SERVICE: August 17, 2019 TIME: 11:02 AM PATIENT IDENTITY VERIFICATION COMPLETED USING TWO (2) IDENTI FIERS: Name and Date of confirmed by patient verbally. PATIENT GENDER DATA: Female. status: : No status: N/A PATIENT RELEVANT IMPLANT DATA REVIEWED: Not Applicable RADIOLOGY DEPARTMENT: Ultrasound PERIPHERAL IV DATA: Not applicable SIGNED BY: MIREYA LANE RDMS RVT August 17, 2019 11:02 AM tsh on 2019-08-16 TSH Qn 2.720 0.270-4.200 uU/mL Normal 08-16-2019 [facility] ([id number]) Comment: Performed By: #### DHEAS, TD, PROG, E2 #### [facility] [address] [place], [place] [address] #### EST #### [facility] [place] [address] [place] [phone] testosterone, tot/fr on 2019-08-16 Testosterone [Mass/Vol] 22 8-60 ng/dL Normal 2019 [facility] ([id number]) Comment: Result Comment: (NOTE) ADDITIONA L INFORMATION Testing performed by Liquid Chromatography-Tandem Mass Spectrometry (LC-MS/MS). This test was developed and its performance characteristics determined by [facility] in a manner consistent with CLIA requirements. This test has not been cleared or approved by the U.S. Food and Drug Admin istration. Performed By: #### TFTEST ## ## [facility] [address] [place] [address] Testosterone, Free 0.22 0.06-0.92 ng/dL Normal 08-16-2019 [facility] ([id number]) Comment: Result Comment: (NOTE) ADDITIONA L INFORMATION Testing performed by [facility]. This test was developed and its performance characteristics determined by [facility] in a manner consistent with CLIA requirements. This test has not been cleared or approved by the U.S. Food and Drug Admin istration. Performed By: #### TFTEST ## ## [facility] [address] [place] [address] t4/fti on 2019-07-27 2 FTI 5.1 5.3-10.8 ug/dL Low 08-16-2019 [facility] ([id number]) Comment: Performed By: #### DHEAS, TD, PROG, E2 #### [place] [phone] #### EST #### [facility] [address] [place] [address] [phone] T4 [Mass/Vol] 5.5 5.5-10.2 ug/dL Normal 08-16-2019 [facility] ([id number]) Comment: Performed By: #### DHEAS, TD, PROG, E2 #### [place] [phone] #### EST #### [facility] [address] [place] [address] [phone] T4 Uptake 1.08 0.91-1.19 Normal 08-16-2019 [facility] ([id number]) Comment: Performed By: #### DHEAS, TD, PROG, E2 #### [place] [phone] #### EST #### [facility] [address] [place] [address] [phone] t3 on 2019-08-16 T3 102 79-165 ng/dL Normal 08-16-2019 [facility] ([id number]) Comment: Performed By: #### DHEAS, TD, PROG, E2 #### [address] [place] [phone] #### EST #### [facility] [address] [place] [address] [phone] progress on 2019-07 PROGRESS HNO ID: [id number] Normal 08-16-2019 [facility] Author: Hugo Dixon ([id number]) Service: ? Author Type: Physician Type: Progress Notes Filed: 08/16/2019 12:26 PM Note Text: No chief complaint on file. HPI:This Team Access Model visit is a virtual encounter. It required patient-provider interaction for the medical decision making as documented below. Patient was offered a virtual/telemedicine appointment in li eu of an office visit due to recommendations to reduce patient exposu re to COVID-19. Patient is aware of limitations of performing the visit without a face to face visit in the office setting and agrees. Asks to again discuss hormone therapy. She has seen numerous endo and obstetrics and gynecology professor physicians and has been tried on numerous meds. Has a large spectrum of symptoms that she feels are all related to her hormone defic iencies due to when she has initially been placed on hormones, her symptoms go away. I recently had asked to have her see endo again, since I hav e told her I do not feel comfortably managing her complex hormone issues. She however, is most comfortable discussing things with myself. She most recently had seen yane Neves, who among things wondered if Jazlyn rivers had menopause at age 43. She was thinking she has had PCOS with amenorrhea. Jazlyn is very involved in making decisions regarding her care . She had asked to resume metformin for hyperglycemia and possible pco s. In addition, she had talked with Dr. Ballard about resuming low do sed estrogen and then beginning progesterone. We have talked repeatedly a bout that she cannot take unopposed due to risks of endometrial hyperplasi a and malignancy. She has been self adjusting hormones recently at home based on her symptoms. Has noted some hair loss starting recently. She says it is s hedding. She is still noting some swelling. It occurs usually when es trogen is begun. She reduced her estrogen on her own and then. She tried some estrogen gel. She then held it. Once she did her swelling was gone. She then took her progesterone cream that she had gotten fro m obstetrics and gynecology professor previously. We had ordered progesterone orally previously bu t had not been yet taking it as we had advised. First night she felt well w ith better energy and most of her symptoms of hormone deficiency improv ing. She lost five lbs in two days. Swelling went away. Breathing felt well. Energy was doing better. She had stopped apparently the estr ogen on her own. She took the progesterone that night and did not feel as wel l. She then started some vaginal bleeding. She states it is a p eriod. She is wondering if it is the result of her adjusting her hormones and also taking metformin with possible pcos. She spoke with obstetrics and gynecology professor department who recommended endometrial bi opsy. I explained to her that this made sense to rule out malignancy etc. She states she is anxious about coming in for procedure during c ovid pandemic and also that she feels that she does not want to do the bio psy. I spoke to her about the fact that I think she needs to hold on hormone therapy for now. If she is declining the biopsy for now, she at least needs to start with an us and I suggested we also recheck he r thyroid. I also again reiterated the reasoning behind doing an endome trial biopsy. MEDICATIONS: Current Outpatient Medications Medication Sig - miSOPROStol (CYTOTEC) 200 mcg tablet Use 2 tablets vaginal ly as directed. The night before the procedure and the morning of the procedure. - bumetanide (BUMEX) 0.5 mg tablet Take 1 tablet by mouth on ce daily. prn - metFORMIN (GLUCOPHAGE) 500 mg tablet Take 1 tablet by mout h twice daily with meals. . - SYNTHROID 137 mcg tablet Take 1 tablet by mouth once daily . - L.acidoph-B.lactis-B.longum (FLORAJEN3) 460 mg (7.5-6- 1.5 bill. cell) cap Take 1 capsule by mouth once daily. - lancets (FREESTYLE LANCETS) 28 gauge misc USE FOUR TIMES D AILY DIRECTED - blood sugar diagnostic (FREESTYLE TEST) test strip TEST fo ur times a day - Blood-Glucose Meter (FREESTYLE LITE METER) monitoring kit 1 Each as needed. - Blood-Glucose Meter (FREESTYLE LITE METER) monitoring kit 1 Each as needed. No current facility-administered medications for this visit. ALLERGIES: ALLERGIES Allergen Reactions - Codeine GI Upset, Vomiting - Percocet [Oxycodone* Vomiting - Solumedrol [Methylp* Mental Status Change Made her rageful - Vicodin [Hydrocodon* Vomiting - Combipatch [Estradi* Intolerance feels wired, muscles hurt, lips/mouth burn, feels like asthm a flaring, nausea, dizziness. - Metformin Other: See Comments Myalgias. - Pepcid [Famotidine * Other: See Comments Dry eyes, mouth, rash, itching, anxiety - Tapazole [Methimazo* Hives PAST MEDICAL HISTORY Diagnosis Date - Abdominal pain, chronic, right upper quadrant - Asthma As a baby, then I outgrew it. - Cystocele, midline 05/13/2009 - Delayed emergence from anesthesia 09/27/2014 - Depression - Excessive or frequent menstruation Heavy periods - HSDD 10/21/2011 - Hypothyroidism should be on FRANCESCO synthroid. - Irregular menstrual cycle Irregular periods - menopause age 43 2009 in 2013 FSH 47 - Moderate dysplasia of cervix 2001 - Parent-child conflict 03/07/2013 - PMH - PAST MEDICAL HISTORY OF thyroid ablation/hypothyroid - Postmenopausal HRT (hormone replacement therapy) 12/13/2015 in 2014 took femHRT cried 11/2015 offer climara/prometrium - Rectocele 05/13/2009 - SVT (supraventricular tachycardia) (HCC) - Syncope 05/14/2013 -Reported that she had one episode of syncope at the OSH. -H ad the episode when she stood up. -No urinary incontinence or jerki ng movements. -Never had syncope episode before. -Last Echo stress test fo r her chest pain was in 2011 (normal) Plan: -Repeat the Echo: normal - T he left ventricle is normal in size. Left ventricular systolic funct ion is normal. EF = 63 ? 5% (2D biplane) - The right ventricle is normal in size. Right ventricular systolic function is normal. - There are no sign ificant valvular abnormalities. - Prior echocardiogram performed on 11/10/11 (stress echo). No significant change. - Tele - Tobacco use - Weight gain PAST SURGICAL HISTORY Procedure Laterality Date - CERVIX UTERI CONIZA LP ELCTRO EXCI 2001 LEEP-Cervix - COLONOSCOPY 04/2017 says nl - EGD W/O OR W/BRUSH/WASH 01/22/2014,2009 EGD - LAPAROSCOPIC CHOLEYCYSTECTOMY 05/19/2011 - LIGATE FALLOPIAN TUBE 2003 Tubal ligation - PAST SURGICAL HISTORY OF 1998 tubal - PAST SURGICAL HISTORY OF 2001 thyroid ablation - REMOVAL OF OVARY(S) 09/2014 laparoscopic left, CW, umbilical/upper abdominal adhesions s een benign FAMILY HISTORY Problem Relation Age of Onset - Diabetes Mother Type 2 stroke - Colon Cancer Father age 64 [place] - Diabetes Father Type 2 - Hypertension Father - Coronary Artery Disease Father Hx of [place] - Thyroid Sister hx of parathyroid disease/ hx of fibroids - other (healthy) Brother - other (healthy) Brother - Allergies Daughter - other (healthy) Daughter - other (healthy) Son - other (healthy) Son - other (healthy) Son - other (healthy) Son - Colon Cancer Paternal Aunt x5 - Colon Cancer Paternal Uncle x8 Social History Tobacco Use - Smoking status: Current Every Day Smoker Packs/day: 0.50 Types: Cigarettes Start date: 1985 - Smokeless tobacco: Never Used - Tobacco comment: Has quit intermittently, And I'm working on it now. 1st AM cigarette 10-15 minutes after awake. Most desired is that one, or last of day before bed. Prior 8 month quits, resumed after p regnanmatthew completed. TO Substance Use Topics - Alcohol use: No - Drug use: No Reviewed current medications, allergies, past medical histor y, surgical history, family history and social history today. REVIEW OF SYSTEMS All other reviewed and negative other than HPI. HEALTH MAINTENANCE: Discussed covid 19 safety and recommendations if patient tommy uld become ill. VITALS: LMP 03/10/2010 Last 4 Encounter Wt Readings: Date: Wt: 06/19/2019 91.2 kg (201 lb) 06/14/2019 91.6 kg (202 lb) 05/24/2019 90.3 kg (199 lb) 05/12/2019 89.8 kg (198 lb) PHYSICAL EXAMINATION: Patient is alert and oriented during visit. Answers appropri ately. ASSESSMENT/PLAN: 1. Hypothyroidism, acquired - ICD9: 244.9, ICD10: E03.9 ([facility] diagnosis) - recheck labs. - TSH BLD - T4/FTI/T4U - T3 BLD 2. Abnormal uterine bleeding - ICD9: 626.9, ICD10: N93.9 - again, endo has thought she may not be postmenopausal but may be actually PCOS and amenorrhea. She does not want to do a endometrial biopsy but will consen t to starting with a pelvic us. I have cautioned her against using hormones further at this point. Again reiterated the concerns that if she Is having post menopausa l bleeding that can represent malignancy and that unopposed estrogen ca n cause the same concerns as well. I will pass the info from our visit a long to obstetrics and gynecology professor. Reiterated to her that I would prefer that they be involved in hormone therapy. Call if any worsening issues. She is agreeable with the plan. Questions were answered. - US FEMALE PELVIS TRANSVAG 3. Hormone deficiency - ICD9: 259.8, ICD10: E34.8 - as above. Hugo Nava MD RTO after therapy. I spent 15 minutes in the visit, with more than 50% of the t otal legr-hm-mhya time of the visit in counseling / coordination of care. progesterone on Progesterone 0.3 ng/mL Normal 08-16-2019 [facility] ([id number]) Comment: Result Comment: Menstrual Cy soy Progesterone Reference Ranges: Follicular:<1.0 ng/mL Ovulation:<12.1 ng/mL Luteal:1.8 to 23.9 ng/mL Progesterone Refer ence Ranges vary by gestational period: First Trimester:11.0 to 44.3 ng/mL Second Trimester:25.4 to >60 .0 ng/mL Third Trimester:58.7 to >60. 0 ng/mL Post menopausal Progesterone :<0.5 ng/mL Reference: 1. Progesterone ( Progesterone III) [package insert V 1.0 Mexican]. [facility], [place], [place]. January 2015. Performed By: #### DHEAS, TD, PROG, E2 #### [facility] [address] [place], [place] [address] #### EST #### [facility] [address] [place] [address] [phone] estrone on Estrone 23.7 pg/mL Normal 08-16-2019 [facility] ([id number]) Comment: Result Comment: (NOTE) Females: Pre-menopausal: Early follic ular <150.0 pg/mL Pre-menopausal: Late follicu lar 100.0-250.0 pg/mL Pre-menopausal: Luteal <200. 0 pg/mL Post-menopausal 3.0-32.0 pg/ mL REFERENCE INTERVAL: Estrone by TMS Access complete set of age- and/or gender-specific reference intervals for this test in [facility] Test [facility] ([employer]). Test developed and character istics determined by [employer]. See Compliance Statement B: [employer]/ Performed by [facility] , [address] [place] [address] [email or web address], Wilner Saenz do, MD, Lab. Director Performed By: #### DHEAS, TD, PROG, E2 #### [facility] [address] [address] #### EST #### [address] [address] [phone] estradiol-17b on 13-08-21 Estradiol-17B <25 Normal 08-16-2019 [facility] ([id number]) Comment: Result Comment: This test is not suitable for patients receiving treatment with the drug Fulvestrant (Faslodex). The drug causes an interference leading to falsely elevated estradiol results. Menstrual cycle Estradiol re ference ranges: Follicular : < 234 pg/mL Ovulation : 41 to 398 pg/mL Luteal : < 342 pg/mL Estradiol referenc e ranges vary by gestational period: First trimester : 154 to 324 3 pg/mL Second trimester : 1561 TO 2 1280 pg/mL Third trimester : 8285 to >3 0000 pg/mL Post-menopausal Estradiol re ference range: < 41 pg/mL Reference: 1. Estradiol - E2 (Estradiol III) [package insert V 3.0 Mexican]. [facility], [place], [place], September 2015. Performed By: #### DHEAS, TD, PROG, E2 #### [facility] [address] [address] #### EST #### [address] [address] [phone] cnpn on 2019-08-16 CNPN Telephone ([facility] Normal 08-16-2019 [place] GARZONJAZLYN Antonieta ([id number]) [address] [facility] Time Provider Department ([id number]) 08/16/19 HUGO NAVA During your visit today, we recorded the following informati on about you: Jazlyn Garcia Ma 08/16/2019 12:42 PM Signed Please help pt schedule ultrasound Carisa Wilson Pss 08/23/2019 9:59 AM Signed Spoke to patient who has been scheduled on October 08 (patient request). Patient voiced understanding. Allergies As of Date: 08/16/2019 Noted Allergy Reaction CODEINE 09/27/2014 8 - GI Upset 11 - Vomiting PERCOCET (OXYCODONE-ACETAMINOPHEN)07/17/2011 11 - Vomiting SOLUMEDROL (METHYLPREDNISOLONE SO*01/22/2014 1 - Mental Stat us Change Comments: Made her rageful VICODIN (HYDROCODONE-ACETAMINOPHE*07/17/2011 11 - Vomiting COMBIPATCH (ESTRADIOL-NORETHINDRO*10/26/2016 5 - Intolerance Comments: feels wired, muscles hurt, lips/mouth burn, feels like asthma flaring, nausea, dizziness. METFORMIN 10/28/2017 14 - Other: See Comments Comments: Myalgias. PEPCID (FAMOTIDINE (PF)) 07/07/2016 14 - Other: See Comments Comments: Dry eyes, mouth, rash, itching, anxiety TAPAZOLE (METHIMAZOLE) 10/14/2005 4 - Hives Date Reviewed: 08/15/2019 Reviewed by: Ofe ([facility]) Yoel - Fully Assessed Reason for Visit: Orders [681] Prescriptions as of 08/16/2019 Sig: X MISOPROSTOL 200 MCG TABLET Use 2 tablets vaginally as di* BUMETANIDE 0.5 MG TABLET Take 1 tablet by mouth once d* METFORMIN 500 MG TABLET Take 1 tablet by mouth twice * SYNTHROID 137 MCG TABLET Take 1 tablet by mouth once d* FLORAJEN3 460 MG (7.5-6-1.5 B* Take 1 capsule by mouth once * LANCETS 28 GAUGE USE FOUR TIMES DAILY DIREC* BLOOD SUGAR DIAGNOSTIC STRIPS TEST four times a day BLOOD-GLUCOSE METER KIT 1 Each as needed. BLOOD-GLUCOSE METER KIT 1 Each as needed. Problem List As Of Date 08/16/2019 Noted Resolved Postablative hypothyroidism [E89.0] 04/06/2006 More... Excessive or frequent menstruation [N92.0] 01/05/20072011 Irregular menstrual cycle [N92.6] 01/05/2007 10/06/2011 Unspecified aftercare [Z51.89] 05/26/2011 10/06/2011 Abdominal pain, chronic, right upper quadrant [* 10/06/2011 Post-menopause [Z78.0] 10/21/2011 03/18/2015 More... URI (upper respiratory infection) [J06.9] 05/14/2013 015 More... Pneumonia [J18.9] 05/14/2013 07/11/2014 More... More... More... More... More... Adrenal disorder [E27.9] 05/24/2013 07/11/2014 hx of low vitamin D [E55.9] 06/01/2013 Panic disorder with agoraphobia [F40.01] 07/10/2013 Chronic fatigue fibromyalgia syndrome [R53.82, *07/12/2013 Marital conflict [Z63.0] 08/30/2013 07/11/2014 Blood pressure elevated without history of HTN *09/06/2014 Impaired glucose tolerance [R73.02] 09/06/2014 More... Ovarian cyst [N83.209] 09/24/2014 03/18/2015 SVT (supraventricular tachycardia) (HCC) [I47.1]09/27/2014 Delayed emergence from anesthesia [T88.59XA] 09/27/201409/25 On home oxygen therapy [Z99.81] 09/27/2014 12/13/2015 PTSD (post-traumatic stress disorder) [F43.10] 11/01/2014 Attention deficit hyperactivity disorder (ADHD)*11/08/2014 Recurrent major depressive disorder, in partial*07/09/2015 Encounter for screening mammogram for malignant*12/12/2015 0 11/09/2016 menopause age 43 [N95.1] Tobacco use [Z72.0] Postmenopausal HRT (hormone replacement therapy*12/13/2015 0 11/09/2016 Weight gain [R63.5] 10/19/2017 GERD without esophagitis [K21.9] 05/12/2017 More... Simple chronic bronchitis (HCC) [J41.0] 12/01/2017 More... Irritable bowel syndrome with diarrhea [K58.0] 12/14/2017 Systemic lupus erythematosus (HCC) [M32.9] 02/14/2018 Burning sensation of mouth [R20.8] 02/16/2018 Burning sensation of skin [R20.8] 02/16/2018 Sleep difficulties [G47.9] 02/16/2018 Mitral valve prolapse [I34.1] 02/23/2018 More... Screening for malignant neoplasm of the cervix *06/20/2018 Visit for pelvic exam [Z01.419] 06/20/2018 Encounter for screening mammogram for malignant*06/20/2018 Estrogen deficiency [E28.39] 06/20/2018 Adrenal adenoma, left [D35.02] 08/25/2018 More... Encounter Status:Closed by CARISA SHERMAN on 08/23/19 progress on 2019-07 PROGRESS HNO ID: [id number] Normal 08-15-2019 [place] Author: Ofe Randhawa) [facility] Service: ? [place] Author Type: Nurse Practitioner ([id number]) Type: Progress Notes Filed: 08/15/2019 3:01 PM Note Text: This Team Access Model visit is a phone encounter. It requir ed patient-provider interaction for the medical decision making as documented below. Jazlyn Garzon is a 53 year old female who presents for proble m visit Hormone imbalance. HPI: Patient states that her hormones are imbalanced. She st ates with the estrogen patch that she does really good the first day the s econd day being start going south and the third day is like having n o patch on. She complains with 0.075 patch that she was having pitting e lisa in her one leg and generalized edema elsewhere. She has seen endocr inology at [facility], she was started on metformin for possible insulin resistance. She states that since having the one ovary remov ed that she is been disabled unable to focus drive a vehicle and have tr ouble with daily activities. She states that just today she started hav ing vaginal bleeding, she has not had a period in 10 years. PAST MEDICAL HISTORY Diagnosis Date - Abdominal pain, chronic, right upper quadrant - Asthma As a baby, then I outgrew it. - Cystocele, midline 05/13/2009 - Delayed emergence from anesthesia 09/27/2014 - Depression - Excessive or frequent menstruation Heavy periods - HSDD 10/21/2011 - Hypothyroidism should be on FRANCESCO synthroid. - Irregular menstrual cycle Irregular periods - menopause age 43 2009 in 2012 FSH 47 - Moderate dysplasia of cervix 2001 - Parent-child conflict 03/07/2013 - PMH - PAST MEDICAL HISTORY OF thyroid ablation/hypothyroid - Postmenopausal HRT (hormone replacement therapy) 12/13/2015 in 2014 took femHRT cried 11/2015 offer climara/prometrium - Rectocele 05/13/2009 - SVT (supraventricular tachycardia) (HCC) - Syncope 05/14/2013 -Reported that she had one episode of syncope at the OSH. -H ad the episode when she stood up. -No urinary incontinence or jerki ng movements. -Never had syncope episode before. -Last Echo stress test fo r her chest pain was in 2011 (normal) Plan: -Repeat the Echo: normal - T he left ventricle is normal in size. Left ventricular systolic funct ion is normal. EF = 63 ? 5% (2D biplane) - The right ventricle is normal in size. Right ventricular systolic function is normal. - There are no sign ificant valvular abnormalities. - Prior echocardiogram performed on 11/10/11 (stress echo). No significant change. - Tele - Tobacco use - Weight gain PAST SURGICAL HISTORY Procedure Laterality Date - CERVIX UTERI CONIZA LP ELCTRO EXCI 2001 LEEP-Cervix - COLONOSCOPY 04/2017 says nl - EGD W/O OR W/BRUSH/WASH 01/22/2014,2009 EGD - LAPAROSCOPIC CHOLEYCYSTECTOMY 05/19/2011 - LIGATE FALLOPIAN TUBE 2003 Tubal ligation - PAST SURGICAL HISTORY OF 1998 tubal - PAST SURGICAL HISTORY OF 2001 thyroid ablation - REMOVAL OF OVARY(S) 09/2014 laparoscopic left, CW, umbilical/upper abdominal adhesions s een benign FAMILY HISTORY Problem Relation Age of Onset - Diabetes Mother Type 2 stroke - Colon Cancer Father age 64 [place] - Diabetes Father Type 2 - Hypertension Father - Coronary Artery Disease Father Hx of [place] - Thyroid Sister hx of parathyroid disease/ hx of fibroids - other (healthy) Brother - other (healthy) Brother - Allergies Daughter - other (healthy) Daughter - other (healthy) Son - other (healthy) Son - other (healthy) Son - other (healthy) Son - Colon Cancer Paternal Aunt x5 - Colon Cancer Paternal Uncle x8 Social History Tobacco Use - Smoking status: Current Every Day Smoker Packs/day: 0.50 Types: Cigarettes Start date: 1985 - Smokeless tobacco: Never Used - Tobacco comment: Has quit intermittently, And I'm working on it now. 1st AM cigarette 10-15 minutes after awake. Most desired is that one, or last of day before bed. Prior 8 month quits, resumed after p regnancies completed. TO Substance Use Topics - Alcohol use: No - Drug use: No Current Outpatient Medications Medication Sig - bumetanide (BUMEX) 0.5 mg tablet Take 1 tablet by mouth on ce daily. prn - estradiol (VIVELLE-DOT) 0.075 mg/24 hr Apply 1 Patch as di rected two times a week. - metFORMIN (GLUCOPHAGE) 500 mg tablet Take 1 tablet by mout h twice daily with meals. . - SYNTHROID 137 mcg tablet Take 1 tablet by mouth once daily . - compounded progesterone 50 mg capsule Take 1 capsule by mo ut twice daily. (Patient not taking: Reported on 06/14/2019 ) - L.acidoph-B.lactis-B.longum (FLORAJEN3) 460 mg (7.5-6- 1.5 bill. cell) cap Take 1 capsule by mouth once daily. - lancets (FREESTYLE LANCETS) 28 gauge misc USE FOUR TIMES D AILY DIRECTED - blood sugar diagnostic (FREESTYLE TEST) test strip TEST fo ur times a day - Blood-Glucose Meter (FREESTYLE LITE METER) monitoring kit 1 Each as needed. - Blood-Glucose Meter (FREESTYLE LITE METER) monitoring kit 1 Each as needed. No current facility-administered medications for this visit. Allergies As of Date: 08/15/2019 Allergen Noted Reaction CODEINE 09/27/2014 GI Upset and Vomiting PERCOCET [OXYCODONE-ACETAMINOPHEN]07/17/2011 Vomiting SOLUMEDROL [METHYLPREDNISOLONE SO*01/22/2014 Mental Status C hange VICODIN [HYDROCODONE-ACETAMINOPHE*07/17/2011 Vomiting COMBIPATCH [ESTRADIOL-NORETHINDRO*10/26/2016 Intolerance METFORMIN 10/28/2017 Other: See Comments PEPCID [FAMOTIDINE (PF)] 07/07/2016 Other: See Comments TAPAZOLE [METHIMAZOLE] 10/14/2005 Hives Fully Assessed 05/24/2019 REVIEW OF SYSTEMS Abdomen: No bloating, early satiety, indigestion, or increas ed flatulence. No abdominal pain, nausea, vomiting, diarrhea, or constipati on. Bladder: No dysuria, gross hematuria, urinary frequency, uri nary urgency, or incontinence. Expanded ROS: N/A Allergies and current medication updated:Yes EXAM: LMP 03/10/2010 GENERAL: pleasant, female in no apparent distress ASSESSMENT/PLAN: 1. PMB (postmenopausal bleeding) - ICD9: 627.1, ICD10: N95.0 - Pt schedule for EMB on 08/17/19 - cytotec ordered 32 mins spent on the phone with pt Ofe Garcia APRN.PULLEY MAN progress on 2019-07 PROGRESS HNO ID: [id number] Normal 08-10-2019 [facility] Author: Hugo Nava [place] ([id number]) Service: ? Author Type: Physician Type: Progress Notes Filed: 08/10/2019 8:28 AM Note Text: No chief complaint on file. HPI:This Team Access Model visit is a virtual encounter. It required patient-provider interaction for the medical decision making as documented below. Patient was offered a virtual/telemedicine appointment in li eu of an office visit due to recommendations to reduce patient exposu re to COVID-19. Patient is aware of limitations of performing the visit without a face to face visit in the office setting and agrees. She had increased her estrogen. She had some edema initially. She has gotten before with her hormones. Is now much better. No redness or warmth. Occasional mild swelling but goes down at night. Worse in le ft leg but seems to be dependent. Offered duplex but declines. Had noted puffiness all over. Now seems to be doing better. Having some issues with reflux. Was feeling symptoms consist ent with what she has had before No chest pain or shortness of breath currently. Had some abdominal cramps but improved after new patch. We discussed adding a diuretic prn. Has taken lasix before b ut did not work. Is tolerating metformin. Again encouraged to take progesterone. MEDICATIONS: Current Outpatient Medications Medication Sig - estradiol (VIVELLE-DOT) 0.075 mg/24 hr Apply 1 Patch as di rected two times a week. - metFORMIN (GLUCOPHAGE) 500 mg tablet Take 1 tablet by mout h twice daily with meals. . - dexamethasone (DECADRON) 1 mg tablet Take 1 tablet by mout h every 6 hours. - SYNTHROID 137 mcg tablet Take 1 tablet by mouth once daily . - compounded progesterone 50 mg capsule Take 1 capsule by mo uth twice daily. (Patient not taking: Reported on 06/14/2019 ) - sucralfate (CARAFATE) 1 gram tablet Take 1 tablet by mouth four times daily. - L.acidoph-B.lactis-B.longum (FLORAJEN3) 460 mg (7.5-6- 1.5 bill. cell) cap Take 1 capsule by mouth once daily. - lancets (FREESTYLE LANCETS) 28 gauge misc USE FOUR TIMES D AILY DIRECTED - blood sugar diagnostic (FREESTYLE TEST) test strip TEST fo ur times a day - Blood-Glucose Meter (FREESTYLE LITE METER) monitoring kit 1 Each as needed. - Blood-Glucose Meter (FREESTYLE LITE METER) monitoring kit 1 Each as needed. No current facility-administered medications for this visit. ALLERGIES: ALLERGIES Allergen Reactions - Codeine GI Upset, Vomiting - Percocet [Oxycodone* Vomiting - Solumedrol [Methylp* Mental Status Change Made her rageful - Vicodin [Hydrocodon* Vomiting - Combipatch [Estradi* Intolerance feels wired, muscles hurt, lips/mouth burn, feels like asthm a flaring, nausea, dizziness. - Metformin Other: See Comments Myalgias. - Pepcid [Famotidine * Other: See Comments Dry eyes, mouth, rash, itching, anxiety - Tapazole [Methimazo* Hives PAST MEDICAL HISTORY Diagnosis Date - Abdominal pain, chronic, right upper quadrant - Asthma As a baby, then I outgrew it. - Cystocele, midline 05/13/2009 - Delayed emergence from anesthesia 09/27/2014 - Depression - Excessive or frequent menstruation Heavy periods - HSDD 10/21/2011 - Hypothyroidism should be on FRANCESCO synthroid. - Irregular menstrual cycle Irregular periods - menopause age 43 2009 in 2013 FSH 47 - Moderate dysplasia of cervix 2001 - Parent-child conflict 03/07/2013 - PMH - PAST MEDICAL HISTORY OF thyroid ablation/hypothyroid - Postmenopausal HRT (hormone replacement therapy) 12/13/2015 in 2014 took femHRT cried 11/2015 offer climara/prometrium - Rectocele 05/13/2009 - SVT (supraventricular tachycardia) (HCC) - Syncope 05/14/2013 -Reported that she had one episode of syncope at the OSH. -H ad the episode when she stood up. -No urinary incontinence or jerki ng movements. -Never had syncope episode before. -Last Echo stress test fo r her chest pain was in 2011 (normal) Plan: -Repeat the Echo: normal - T he left ventricle is normal in size. Left ventricular systolic funct ion is normal. EF = 63 ? 5% (2D biplane) - The right ventricle is normal in size. Right ventricular systolic function is normal. - There are no sign ificant valvular abnormalities. - Prior echocardiogram performed on 11/10/11 (stress echo). No significant change. - Tele - Tobacco use - Weight gain PAST SURGICAL HISTORY Procedure Laterality Date - CERVIX UTERI CONIZA LP ELCTRO EXCI 2001 LEEP-Cervix - COLONOSCOPY 04/2017 says nl - EGD W/O OR W/BRUSH/WASH 01/22/2014,2009 EGD - LAPAROSCOPIC CHOLEYCYSTECTOMY 05/19/2011 - LIGATE FALLOPIAN TUBE 2003 Tubal ligation - PAST SURGICAL HISTORY OF 1998 tubal - PAST SURGICAL HISTORY OF 2001 thyroid ablation - REMOVAL OF OVARY(S) 09/2014 laparoscopic left, CW, umbilical/upper abdominal adhesions s een benign FAMILY HISTORY Problem Relation Age of Onset - Diabetes Mother Type 2 stroke - Colon Cancer Father age 64 [place] - Diabetes Father Type 2 - Hypertension Father - Coronary Artery Disease Father Hx of [place] - Thyroid Sister hx of parathyroid disease/ hx of fibroids - other (healthy) Brother - other (healthy) Brother - Allergies Daughter - other (healthy) Daughter - other (healthy) Son - other (healthy) Son - other (healthy) Son - other (healthy) Son - Colon Cancer Paternal Aunt x5 - Colon Cancer Paternal Uncle x8 Social History Tobacco Use - Smoking status: Current Every Day Smoker Packs/day: 0.50 Types: Cigarettes Start date: 1985 - Smokeless tobacco: Never Used - Tobacco comment: Has quit intermittently, And I'm working on it now. 1st AM cigarette 10-15 minutes after awake. Most desired is that one, or last of day before bed. Prior 8 month quits, resumed after p regnancies completed. TO Substance Use Topics - Alcohol use: No - Drug use: No Reviewed current medications, allergies, past medical histor y, surgical history, family history and social history today. REVIEW OF SYSTEMS All other reviewed and negative other than HPI. VITALS: LMP 03/10/2010 Last 4 Encounter Wt Readings: Date: Wt: 06/19/2019 91.2 kg (201 lb) 06/14/2019 91.6 kg (202 lb) 05/24/2019 90.3 kg (199 lb) 05/12/2019 89.8 kg (198 lb) PHYSICAL EXAMINATION: Patient is alert and oriented during visit. Answers appropri ately. ASSESSMENT/PLAN: 1. Hormone deficiency - ICD9: 259.8, ICD10: E34.8 (primary d iagnosis) - continue estrogen and progesterone. Aware of risks specifi eliot with smoking. Declines duplex. Will call if worsens. - PROGESTERONE BLD - check estrogen and progesterone. 2. GERD without esophagitis - ICD9: 530.81, ICD10: K21.9 Cannot tolerated reflux meds. Is better when on meds. 3. Edema, unspecified type - ICD9: 782.3, ICD10: R60.9 - has been a recurrent issues with hormone therapy for her. Can try bumex prn. Watch salt and push fluids. Will follow progress. Hugo Nava MD tsh on 2019-07-21 TSH Qn 0.989 0.270-4.200 uU/mL Normal 07-21-2019 [facility] ([id number]) Comment: Performed By: #### DHEAS, TD, PROG, E2 #### [facility] [address] [place], [place] [address] #### EST #### [facility] [address] [place] [address] [phone] estrone on Estrone 25.5 pg/mL Normal 07-21-2019 [facility] ([id number]) Comment: Result Comment: (NOTE) Females: Pre-menopausal: Early follic ular <150.0 pg/mL Pre-menopausal: Late follicu lar 100.0-250.0 pg/mL Pre-menopausal: Luteal <200. 0 pg/mL Post-menopausal 3.0-32.0 pg/ mL REFERENCE INTERVAL: Estrone by TMS Access complete set of age- and/or gender-specific reference intervals for this test in t [facility] Test Directory ([employer]). Test developed and character istics determined by [employer]. See Compliance Statement B: [employer]/ Performed by [facility] , [address] [place], [place] [address] [email or web address], Wilner Saenz do, MD, Lab. Director Performed By: #### DHEAS, TD, PROG, E2 #### [facility] [address] [place] [phone] #### EST #### [facility] [address] [place] [address] [phone] estradiol-17b on 13-07-26 Estradiol-17B 46 pg/mL Normal 07-21-2019 [facility] ([id number]) Comment: Result Comment: This test is not suitable for patients receiving treatment with the drug Fulvestrant (Faslodex). The drug causes an interference leading to falsely elevated estradiol results. Menstrual cycle Estradiol re ference ranges: Follicular : < 234 pg/mL Ovulation : 41 to 398 pg/mL Luteal : < 342 pg/mL Estradiol referenc e ranges vary by gestational period: First trimester : 154 to 324 3 pg/mL Second trimester : 1561 TO 2 1280 pg/mL Third trimester : 8285 to >3 0000 pg/mL Post-menopausal Estradiol re ference range: < 41 pg/mL Reference: 1. Estradiol - E2 (Estradiol III) [package insert V 3.0 Mexican]. [facility], [place], [place], September 2015. Performed By: #### DHEAS, TD, PROG, E2 #### [facility] [address] [place], [place] [address] #### EST #### [facility] [address] [place] [address] [phone] cnpn on 2019-07-12 [facility] Normal 07-12-2019 [place] [facility] JAZLYN GARZON ([id number]) 1965 [place] Date Time Provider Department ([id number]) 07/12/19 HUGO NAVA [facility] During your visit today, we recorded the following informati on about you: Samantha Simon RN 07/12/2019 4:57 PM Signed Teal Orbit calling to say patient needs prior auth for Vivel le-Dot. PRIOR AUTHORIZATION Medication for Prior Authorization: Vivelle-Dot Other formulary meds available : NO Insurance Company: [employer] phone number: Patient insurance ID number: [id number] Samantha Nava MD 07/12/2019 5:00 PM Signed She cannot tolerate generic. Is able to take francesco Albright Ma 07/13/2019 9:20 AM Signed -Prior Authorization has been completed online at [employer] for vivelle-dot patches, will await response. MONDRAGON- [id number] Please keep encounter open until final decision has been rec eived and documented from insurance company. Nayeli Fitch LPN 07/31/2019 1:11 PM Signed Received below response from [employer]: Allergies As of Date: 07/12/2019 Noted Allergy Reaction CODEINE 09/27/2014 8 - GI Upset 11 - Vomiting PERCOCET (OXYCODONE-ACETAMINOPHEN)07/17/2011 11 - Vomiting SOLUMEDROL (METHYLPREDNISOLONE SO*01/22/2014 1 - Mental Stat us Change Comments: Made her rageful VICODIN (HYDROCODONE-ACETAMINOPHE*07/17/2011 11 - Vomiting COMBIPATCH (ESTRADIOL-NORETHINDRO*10/26/2016 5 - Intolerance Comments: feels wired, muscles hurt, lips/mouth burn, feels like asthma flaring, nausea, dizziness. METFORMIN 10/28/2017 14 - Other: See Comments Comments: Myalgias. PEPCID (FAMOTIDINE (PF)) 07/07/2016 14 - Other: See Comments Comments: Dry eyes, mouth, rash, itching, anxiety TAPAZOLE (METHIMAZOLE) 10/14/2005 4 - Hives Date Reviewed: 05/24/2019 Reviewed by: Sudha Pink LPN - Fully Assessed Reason for Visit: Insurance Authorization [[id number]] Cmt: Vivelle-Dot patches Reason For Visit History Recorded Prescriptions as of 07/12/2019 Sig: X VIVELLE-DOT 0.05 MG/24 HR TRA* Apply 1 Patch as directed t wo* DEXAMETHASONE 1 MG TABLET Take 1 tablet by mouth every * SYNTHROID 137 MCG TABLET Take 1 tablet by mouth once d* CPD PROGESTERONE 50 MG CAPSULE Take 1 capsule by mouth twice * Patient not taking: Reported on 06/14/2019 SUCRALFATE 1 GRAM TABLET Take 1 tablet by mouth four t* FLORAJEN3 460 MG (7.5-6-1.5 B* Take 1 capsule by mouth once * LANCETS 28 GAUGE USE FOUR TIMES DAILY DIREC* BLOOD SUGAR DIAGNOSTIC STRIPS TEST four times a day BLOOD-GLUCOSE METER KIT 1 Each as needed. BLOOD-GLUCOSE METER KIT 1 Each as needed. Problem List As Of Date 07/12/2019 Noted Resolved Postablative hypothyroidism [E89.0] 04/06/2006 More... Excessive or frequent menstruation [N92.0] 01/05/20072011 Irregular menstrual cycle [N92.6] 01/05/2007 10/06/2011 Unspecified aftercare [Z51.89] 05/26/2011 10/06/2011 Abdominal pain, chronic, right upper quadrant [* 10/06/2011 Post-menopause [Z78.0] 10/21/2011 03/18/2015 More... URI (upper respiratory infection) [J06.9] 05/14/2013 015 More... Pneumonia [J18.9] 05/14/2013 07/11/2014 More... More... More... More... More... Adrenal disorder [E27.9] 05/24/2013 07/11/2014 hx of low vitamin D [E55.9] 06/01/2013 Panic disorder with agoraphobia [F40.01] 07/10/2013 Chronic fatigue fibromyalgia syndrome [R53.82, *07/12/2013 Marital conflict [Z63.0] 08/30/2013 07/11/2014 Blood pressure elevated without history of HTN *09/06/2014 Impaired glucose tolerance [R73.02] 09/06/2014 More... Ovarian cyst [N83.209] 09/24/2014 03/18/2015 SVT (supraventricular tachycardia) (HCC) [I47.1]09/27/2014 Delayed emergence from anesthesia [T88.59XA] 09/27/201409/25 On home oxygen therapy [Z99.81] 09/27/2014 12/13/2015 PTSD (post-traumatic stress disorder) [F43.10] 11/01/2014 Attention deficit hyperactivity disorder (ADHD)*11/08/2014 Recurrent major depressive disorder, in partial*07/09/2015 Encounter for screening mammogram for malignant*12/12/2015 0 11/09/2016 menopause age 43 [N95.1] Tobacco use [Z72.0] Postmenopausal HRT (hormone replacement therapy*12/13/2015 0 11/09/2016 Weight gain [R63.5] 10/19/2017 GERD without esophagitis [K21.9] 05/12/2017 More... Simple chronic bronchitis (HCC) [J41.0] 12/01/2017 More... Irritable bowel syndrome with diarrhea [K58.0] 12/14/2017 Systemic lupus erythematosus (HCC) [M32.9] 02/14/2018 Burning sensation of mouth [R20.8] 02/16/2018 Burning sensation of skin [R20.8] 02/16/2018 Sleep difficulties [G47.9] 02/16/2018 Mitral valve prolapse [I34.1] 02/23/2018 More... Screening for malignant neoplasm of the cervix *06/20/2018 Visit for pelvic exam [Z01.419] 06/20/2018 Encounter for screening mammogram for malignant*06/20/2018 Estrogen deficiency [E28.39] 06/20/2018 Adrenal adenoma, left [D35.02] 08/25/2018 More... Encounter Status:Closed by NAYELI FITCH LPN on 07/31/19 cnpn on 2019-07-05 [facility] Telephone (FAMPWS) Normal 07-05-2019 [place] JAZLYN Jones ([id number]) 1965 [facility] Date Time Provider Department ([id number]) 07/05/19 3:00 PM HUGO NAVAWS During your visit today, we recorded the following informati on about you: Hugo Nava MD 07/05/2019 6:23 PM Signed No chief complaint on file. HPI: Patient presents today for office visit for follow up. This Team Access Model visit is a phone encounter. It requir ed patient-provider interaction for the medical decision making as documented below. Spoke with one yane. Also saw yane Neves in [place]. They are planning on setting her up for a dexamethasone supp ression test. Dr. Ballard feels she has polycystic ovarian syndrome and is no w going into menopause. They are attempting to work on reducing her carb and sugar intake to help with insulin resistance. She feels better because she is off of t he starches. She took estrogen gel and then transitio chris to the estrogen patch. She feel it is running out too soon. She is considering changing it more frequently or increasing her dose. Her progesterone is low. Dr. Ballard felt she should get her estrogen level up and then attempt to resume progesterone. MEDICATIONS: Current Outpatient Medications Medication Sig - SYNTHROID 137 mcg tablet Take 1 tablet by mouth once daily . - compounded progesterone 50 mg capsule Take 1 capsule by mouth twice daily. (Patient not taking: Reported on 06/14/2019 ) - Estradiol (VIVELLE-DOT) 0. 0375 mg/24 hr Apply 1 Patch as directed two times a week. (Patient not taking: Reported on 06/14/2019 ) - sucralfate (CARAFATE) 1 gram tablet Ta ke 1 tablet by mouth four times daily. - L.acidoph-B.lactis-B.longum (FLORAJEN3) 460 mg (7.5- 6- 1.5 bill. cell) cap Take 1 capsule by mouth once daily. - lancets (FREESTYLE LANCETS) 28 gauge misc USE FOUR T IMES DAILY DIRECTED - blood sugar diagnostic (FREESTYLE TEST) test strip TEST fo ur times a day - Blood-Glucose Meter (FREESTYLE LITE METER) mon itoring kit 1 Each as needed. - Blood-Glucose Meter (FREESTYLE LITE METER) mon itoring kit 1 Each as needed. No current facility-administered medications for this visit. ALLERGIES: ALLERGIES Allergen Reactions - Codeine GI Upset, Vomiting - Percocet [Oxycodone* Vomiting - Solumedrol [Methylp* Mental Status Change Made her rageful - Vicodin [Hydrocodon* Vomiting - Combipatch [Estradi* Intolerance feels wired, muscles hurt, lips/mouth burn, feels like asthm a flaring, nausea, dizziness. - Metformin Other: See Comments Myalgias. - Pepcid [Famotidine * Other: See Comments Dry eyes, mouth, rash, itching, anxiety - Tapazole [Methimazo* Hives PAST MEDICAL HISTORY Diagnosis Date - Abdominal pain, chronic, right upper quadrant - Asthma As a baby, then I outgrew it. - Cystocele, midline 05/13/2009 - Delayed emergence from anesthesia 09/27/2014 - Depression - Excessive or frequent menstruation Heavy periods - HSDD 10/21/2011 - Hypothyroidism should be on FRANCESCO synthroid. - Irregular menstrual cycle Irregular periods - menopause age 43 2009 in 2013 FSH 47 - Moderate dysplasia of cervix 2001 - Parent-child conflict 03/07/2013 - PMH - PAST MEDICAL HISTORY OF thyroid ablation/hypothyroid - Postmenopausal HRT (hormone replacement therapy) 12/13/2015 in 2014 took femNIEVES cried 11/2015 offer climara/prometrium - Rectocele 05/13/2009 - SVT (supraventricular tachycardia) (HCC) - Syncope 05/14/2013 -Reported that she had one episode of syncope at the OSH. -H ad the episode when she stood up. -No urinary incontinence or jerking movements. -Never had syncope episode before. -Last Echo stress test f or her chest pain was in 2011 (normal) Plan: -Repeat the Echo: normal - The left ventricle is normal in size. Left ventricular systo lic function is normal. EF = 63 ? 5% (2D biplane) - The right ventricle is normal in size. Right joel tricular systolic function is normal. - There are no significant valvular abnormalities. - Prior echocardiogram performed on 11/10/11 (stress echo). No significant change. - Tele - Tobacco use - Weight gain PAST SURGICAL HISTORY Procedure Laterality Date - CERVIX UTERI CONIZA LP ELCTRO EXCI 2001 LEEP-Cervix - COLONOSCOPY 04/2017 says nl - EGD W/O OR W/BRUSH/WASH 01/22/2014,2009 EGD - LAPAROSCOPIC CHOLEYCYSTECTOMY 05/19/2011 - LIGATE FALLOPIAN TUBE 2003 Tubal ligation - PAST SURGICAL HISTORY OF 1998 tubal - PAST SURGICAL HISTORY OF 2001 thyroid ablation - REMOVAL OF OVARY(S) 09/2014 laparoscopic left, CW, umbilical/upper abdominal adhesions s een benign FAMILY HISTORY Problem Relation Age of Onset - Diabetes Mother Type 2 stroke - Colon Cancer Father age 64 [place] - Diabetes Father Type 2 - Hypertension Father - Coronary Artery Disease Father Hx of [place] - Thyroid Sister hx of parathyroid disease/ hx of fibroids - other (healthy) Brother - other (healthy) Brother - Allergies Daughter - other (healthy) Daughter - other (healthy) Son - other (healthy) Son - other (healthy) Son - other (healthy) Son - Colon Cancer Paternal Aunt x5 - Colon Cancer Paternal Uncle x8 Social History Tobacco Use - Smoking status: Current Every Day Smoker Packs/day: 0.50 Types: Cigarettes Start date: 1985 - Smokeless tobacco: Never Used - Tobacco comment: Has quit intermittently, And I'm working on it now. 1st AM cigarette 10-15 minutes after awake. Most desire d is that one, or last of day before bed. Prior 8 month quits, resumed after pregnancies c ompleted. TO Substance Use Topics - Alcohol use: No - Drug use: No Reviewed current medications, allergies, past medical histor y, surgical history, family history and social history today. REVIEW OF SYSTEMS All other reviewed and negative other than HPI. VITALS: LMP 03/10/2010 Last 4 Encounter Wt Readings: Date: Wt: 06/19/2019 91.2 kg (201 lb) 06/14/2019 91.6 kg (202 lb) 05/24/2019 90.3 kg (199 lb) 05/12/2019 89.8 kg (198 lb) PHYSICAL EXAMINATION: No exam performed ASSESSMENT/PLAN: 1. Hormone disturbance - ICD9: 259.9, ICD10: E34.9 - as above, increase estrogen and then add progesteron e. Call with update in two weeks Hugo Nava MD Referring Provider: SELF [[id number]] Allergies As of Date: 07/05/2019 Noted Allergy Reaction CODEINE 09/27/2014 8 - GI Upset 11 - Vomiting PERCOCET (OXYCODONE-ACETAMINOPHEN)07/17/2011 11 - Vomiting SOLUMEDROL (METHYLPREDNISOLONE SO*01/22/2014 1 - Mental Stat us Change Comments: Made her rageful VICODIN (HYDROCODONE-ACETAMINOPHE*07/17/2011 11 - Vomiting COMBIPATCH (ESTRADIOL-NORETHINDRO*10/26/2016 5 - Intolerance Comments: feels wired, muscles hurt, lips/mouth burn, feels like asthma flaring, nausea, dizziness. METFORMIN 10/28/2017 14 - Other: See Comments Comments: Myalgias. PEPCID (FAMOTIDINE (PF)) 07/07/2016 14 - Other: See Comments Comments: Dry eyes, mouth, rash, itching, anxiety TAPAZOLE (METHIMAZOLE) 10/14/2005 4 - Hives Date Reviewed: 05/24/2019 Reviewed by: Sudha Pink LPN - Fully Assessed Reason for Visit: Telemedicine [[id number]] Primary Visit Diagnosis:Hormone disturbance [E34.9] Order(s):estradiol (VIVELLE-DOT) 0.05 mg/24 hrApply 1 Patc h as directed two times a week.Disp: 8 PatchRfl: 3 Prescriptions as of 07/05/2019 Sig: ESTRADIOL 0.05 MG/24 HR SEMIW* Apply 1 Patch as directed two * SYNTHROID 137 MCG TABLET Take 1 tablet by mouth once d* CPD PROGESTERONE 50 MG CAPSULE Take 1 capsule by mouth twice * Patient not taking: Reported on 06/14/2019 ESTRADIOL 0.0375 MG/24 HR MANJU* Apply 1 Patch as directed two * Patient not taking: Reported on 06/14/2019 SUCRALFATE 1 GRAM TABLET Take 1 tablet by mouth four t* FLORAJEN3 460 MG (7.5-6-1.5 B* Take 1 capsule by mouth once * LANCETS 28 GAUGE USE FOUR TIMES DAILY DIREC* BLOOD SUGAR DIAGNOSTIC STRIPS TEST four times a day BLOOD-GLUCOSE METER KIT 1 Each as needed. BLOOD-GLUCOSE METER KIT 1 Each as needed. Problem List As Of Date 07/05/2019 Noted Resolved Postablative hypothyroidism [E89.0] 04/06/2006 More... Excessive or frequent menstruation [N92.0] 01/05/20072011 Irregular menstrual cycle [N92.6] 01/05/2007 10/06/2011 Unspecified aftercare [Z51.89] 05/26/2011 10/06/2011 Abdominal pain, chronic, right upper quadrant [* 10/06/2011 Post-menopause [Z78.0] 10/21/2011 03/18/2015 More... URI (upper respiratory infection) [J06.9] 05/14/2013 015 More... Pneumonia [J18.9] 05/14/2013 07/11/2014 More... More... More... More... More... Adrenal disorder [E27.9] 05/24/2013 07/11/2014 hx of low vitamin D [E55.9] 06/01/2013 Panic disorder with agoraphobia [F40.01] 07/10/2013 Chronic fatigue fibromyalgia syndrome [R53.82, *07/12/2013 Marital conflict [Z63.0] 08/30/2013 07/11/2014 Blood pressure elevated without history of HTN *09/06/2014 Impaired glucose tolerance [R73.02] 09/06/2014 More... Ovarian cyst [N83.209] 09/24/2014 03/18/2015 SVT (supraventricular tachycardia) (HCC) [I47.1]09/27/2014 Delayed emergence from anesthesia [T88.59XA] 09/27/201409/25 On home oxygen therapy [Z99.81] 09/27/2014 12/13/2015 PTSD (post-traumatic stress disorder) [F43.10] 11/01/2014 Attention deficit hyperactivity disorder (ADHD)*11/08/2014 Recurrent major depressive disorder, in partial*07/09/2015 Encounter for screening mammogram for malignant*12/12/2015 0 11/09/2016 menopause age 43 [N95.1] Tobacco use [Z72.0] Postmenopausal HRT (hormone replacement therapy*12/13/2015 0 11/09/2016 Weight gain [R63.5] 10/19/2017 GERD without esophagitis [K21.9] 05/12/2017 More... Simple chronic bronchitis (HCC) [J41.0] 12/01/2017 More... Irritable bowel syndrome with diarrhea [K58.0] 12/14/2017 Systemic lupus erythematosus (HCC) [M32.9] 02/14/2018 Burning sensation of mouth [R20.8] 02/16/2018 Burning sensation of skin [R20.8] 02/16/2018 Sleep difficulties [G47.9] 02/16/2018 Mitral valve prolapse [I34.1] 02/23/2018 More... Screening for malignant neoplasm of the cervix *06/20/2018 Visit for pelvic exam [Z01.419] 06/20/2018 Encounter for screening mammogram for malignant*06/20/2018 Estrogen deficiency [E28.39] 06/20/2018 Adrenal adenoma, left [D35.02] 08/25/2018 More... Prescriptions ordered this encounter Disp Refills Start End ESTRADIOL 0.05 MG/24 HR SEMIWEEKLY T* 8 Pa* 3 07/05/201901/2020 Route: TRANSDERM. Sig: Apply 1 Patch as directed two times a week. Encounter Status:Closed by HUGO NAVA MD on 07/05/19 obsolete on 2019-06 OBSOLETE Refill (FAMPWS) Normal 06-27-2019 [place] [facility] JAZLYN GARZON ([id number]) 1965 [facility] Date Time Provider Department ([id number]) 06/27/19 HUGO NAVA During your visit today, we recorded the following informati on about you: Lashae Moeller, RN, RN 06/27/2019 11:12 AM Signed Pt calls, she is out of Synthroid and [facility] d oes not have current rx. Last rx sent on 06/14/19 was med update. Order pended. Allergies As of Date: 06/27/2019 Noted Allergy Reaction CODEINE 09/27/2014 8 - GI Upset 11 - Vomiting PERCOCET (OXYCODONE-ACETAMINOPHEN)07/17/2011 11 - Vomiting SOLUMEDROL (METHYLPREDNISOLONE SO*01/22/2014 1 - Mental Stat us Change Comments: Made her rageful VICODIN (HYDROCODONE-ACETAMINOPHE*07/17/2011 11 - Vomiting COMBIPATCH (ESTRADIOL-NORETHINDRO*10/26/2016 5 - Intolerance Comments: feels wired, muscles hurt, lips/mouth burn, feels like asthma flaring, nausea, dizziness. METFORMIN 10/28/2017 14 - Other: See Comments Comments: Myalgias. PEPCID (FAMOTIDINE (PF)) 07/07/2016 14 - Other: See Comments Comments: Dry eyes, mouth, rash, itching, anxiety TAPAZOLE (METHIMAZOLE) 10/14/2005 4 - Hives Date Reviewed: 05/24/2019 Reviewed by: Sudha Pink LPN - Fully Assessed Reason for Visit: Refill Request - Medication Problem [Other] Reason For Visit History Recorded Visit Diagnosis:Postablative hypothyroidism [E89.0] Order(s):SYNTHROID 137 mcg tabletTake 1 tablet by mouth on ce daily.Disp: 30 tabletRfl: 5 Prescriptions as of 06/27/2019 Sig: SYNTHROID 137 MCG TABLET Take 1 tablet by mouth once d* CPD PROGESTERONE 50 MG CAPSULE Take 1 capsule by mouth twice * Patient not taking: Reported on 06/14/2019 ESTRADIOL 0.0375 MG/24 HR MANJU* Apply 1 Patch as directed two * Patient not taking: Reported on 06/14/2019 SUCRALFATE 1 GRAM TABLET Take 1 tablet by mouth four t* FLORAJEN3 460 MG (7.5-6-1.5 B* Take 1 capsule by mouth once * LANCETS 28 GAUGE USE FOUR TIMES DAILY DIREC* BLOOD SUGAR DIAGNOSTIC STRIPS TEST four times a day BLOOD-GLUCOSE METER KIT 1 Each as needed. BLOOD-GLUCOSE METER KIT 1 Each as needed. Problem List As Of Date 06/27/2019 Noted Resolved Postablative hypothyroidism [E89.0] 04/06/2006 More... Excessive or frequent menstruation [N92.0] 01/05/20072011 Irregular menstrual cycle [N92.6] 01/05/2007 10/06/2011 Unspecified aftercare [Z51.89] 05/26/2011 10/06/2011 Abdominal pain, chronic, right upper quadrant [* 10/06/2011 Post-menopause [Z78.0] 10/21/2011 03/18/2015 More... URI (upper respiratory infection) [J06.9] 05/14/2013 015 More... Pneumonia [J18.9] 05/14/2013 07/11/2014 More... More... More... More... More... Adrenal disorder [E27.9] 05/24/2013 07/11/2014 hx of low vitamin D [E55.9] 06/01/2013 Panic disorder with agoraphobia [F40.01] 07/10/2013 Chronic fatigue fibromyalgia syndrome [R53.82, *07/12/2013 Marital conflict [Z63.0] 08/30/2013 07/11/2014 Blood pressure elevated without history of HTN *09/06/2014 Impaired glucose tolerance [R73.02] 09/06/2014 More... Ovarian cyst [N83.209] 09/24/2014 03/18/2015 SVT (supraventricular tachycardia) (HCC) [I47.1]09/27/2014 Delayed emergence from anesthesia [T88.59XA] 09/27/201409/25 On home oxygen therapy [Z99.81] 09/27/2014 12/13/2015 PTSD (post-traumatic stress disorder) [F43.10] 11/01/2014 Attention deficit hyperactivity disorder (ADHD)*11/08/2014 Recurrent major depressive disorder, in partial*07/09/2015 Encounter for screening mammogram for malignant*12/12/2015 0 11/09/2016 menopause age 43 [N95.1] Tobacco use [Z72.0] Postmenopausal HRT (hormone replacement therapy*12/13/2015 0 11/09/2016 Weight gain [R63.5] 10/19/2017 GERD without esophagitis [K21.9] 05/12/2017 More... Simple chronic bronchitis (HCC) [J41.0] 12/01/2017 More... Irritable bowel syndrome with diarrhea [K58.0] 12/14/2017 Systemic lupus erythematosus (HCC) [M32.9] 02/14/2018 Burning sensation of mouth [R20.8] 02/16/2018 Burning sensation of skin [R20.8] 02/16/2018 Sleep difficulties [G47.9] 02/16/2018 Mitral valve prolapse [I34.1] 02/23/2018 More... Screening for malignant neoplasm of the cervix *06/20/2018 Visit for pelvic exam [Z01.419] 06/20/2018 Encounter for screening mammogram for malignant*06/20/2018 Estrogen deficiency [E28.39] 06/20/2018 Adrenal adenoma, left [D35.02] 08/25/2018 More... Prescriptions ordered this encounter Disp Refills Start End SYNTHROID 137 MCG TABLET 30 t* 5 06/27/2019 06/26/2020 Route: ORAL Sig: Take 1 tablet by mouth once daily. Medications Discontinued During This Encounter SYNTHROID 137 mcg tablet 30 t* 5 06/14/2019 06/27/2019 Class: Med Update Route: ORAL Sig: Take 1 tablet by mouth once daily. Disc: Reason for discontinue is not on file. Encounter Status:Closed by Antonieta CEJA PA-C on 06/27/19 progress on 2019-06 PROGRESS HNO ID: [id number] Normal 06-26-2019 [place] Author: Ha Ortiz [facility]: ? [place] Author Type: Physician ([id number]) Type: Progress Notes Filed: 06/26/2019 9:23 AM Note Text: VIRTUAL VISIT DIABETES NOTE Reason for Consultation: Abnormal cushings screening HISTORY OF PRESENT ILLNESS: Ms. Garzon is a 53 year old female presenting here today for a follow up of abnormal hannah screening test At last visit She had a lot of complaints of weight gain , d izziness , muscle weakness which comes and goes. Those symptoms have wo rsened per her she has been started on estrogen since her last visit with antonieta johansen PAST MEDICAL HISTORY Diagnosis Date - Abdominal pain, chronic, right upper quadrant - Asthma As a baby, then I outgrew it. - Cystocele, midline 05/13/2009 - Delayed emergence from anesthesia 09/27/2014 - Depression - Excessive or frequent menstruation Heavy periods - HSDD 10/21/2011 - Hypothyroidism should be on FRANCESCO synthroid. - Irregular menstrual cycle Irregular periods - menopause age 43 2009 in 2012 FSH 47 - Moderate dysplasia of cervix 2001 - Parent-child conflict 03/07/2013 - PMH - PAST MEDICAL HISTORY OF thyroid ablation/hypothyroid - Postmenopausal HRT (hormone replacement therapy) 12/13/2015 in 2014 took femHRT cried 11/2015 offer climara/prometrium - Rectocele 05/13/2009 - SVT (supraventricular tachycardia) (HCC) - Syncope 05/14/2013 -Reported that she had one episode of syncope at the OSH. -H ad the episode when she stood up. -No urinary incontinence or jerki ng movements. -Never had syncope episode before. -Last Echo stress test fo r her chest pain was in 2011 (normal) Plan: -Repeat the Echo: normal - T he left ventricle is normal in size. Left ventricular systolic funct ion is normal. EF = 63 ? 5% (2D biplane) - The right ventricle is normal in size. Right ventricular systolic function is normal. - There are no sign ificant valvular abnormalities. - Prior echocardiogram performed on 11/10/11 (stress echo). No significant change. - Tele - Tobacco use - Weight gain PAST SURGICAL HISTORY Procedure Laterality Date - CERVIX UTERI CONIZA LP ELCTRO EXCI 2001 LEEP-Cervix - COLONOSCOPY 04/2017 says nl - EGD W/O OR W/BRUSH/WASH 01/22/2014,2009 EGD - LAPAROSCOPIC CHOLEYCYSTECTOMY 05/19/2011 - LIGATE FALLOPIAN TUBE 2003 Tubal ligation - PAST SURGICAL HISTORY OF 1998 tubal - PAST SURGICAL HISTORY OF 2001 thyroid ablation - REMOVAL OF OVARY(S) 09/2014 laparoscopic left, CW, umbilical/upper abdominal adhesions s een benign FAMILY HISTORY Problem Relation Age of Onset - Diabetes Mother Type 2 stroke - Colon Cancer Father age 64 [place] - Diabetes Father Type 2 - Hypertension Father - Coronary Artery Disease Father Hx of [place] - Thyroid Sister hx of parathyroid disease/ hx of fibroids - other (healthy) Brother - other (healthy) Brother - Allergies Daughter - other (healthy) Daughter - other (healthy) Son - other (healthy) Son - other (healthy) Son - other (healthy) Son - Colon Cancer Paternal Aunt x5 - Colon Cancer Paternal Uncle x8 Social History Tobacco Use - Smoking status: Current Every Day Smoker Packs/day: 0.50 Types: Cigarettes Start date: 1985 - Smokeless tobacco: Never Used - Tobacco comment: Has quit intermittently, And I'm working on it now. 1st AM cigarette 10-15 minutes after awake. Most desired is that one, or last of day before bed. Prior 8 month quits, resumed after p regnancies completed. TO Substance Use Topics - Alcohol use: No - Drug use: No Allergies As of Date: 06/26/2019 Allergen Noted Reaction CODEINE 09/27/2014 GI Upset and Vomiting PERCOCET [OXYCODONE-ACETAMINOPHEN]07/17/2011 Vomiting SOLUMEDROL [METHYLPREDNISOLONE SO*01/22/2014 Mental Status C hange VICODIN [HYDROCODONE-ACETAMINOPHE*07/17/2011 Vomiting COMBIPATCH [ESTRADIOL-NORETHINDRO*10/26/2016 Intolerance METFORMIN 10/28/2017 Other: See Comments PEPCID [FAMOTIDINE (PF)] 07/07/2016 Other: See Comments TAPAZOLE [METHIMAZOLE] 10/14/2005 Hives Fully Assessed 05/24/2019 Current Outpatient Medications Medication Sig Dispense Refill - SYNTHROID 137 mcg tablet Take 1 tablet by mouth once daily . 30 tablet 5 - compounded progesterone 50 mg capsule Take 1 capsule by [facility] twice daily. (Patient not taking: Reported on 06/14/2019 ) 60 capsule 2 - Estradiol (VIVELLE-DOT) 0.0375 mg/24 hr Apply 1 Patch as d irected two times a week. (Patient not taking: Reported on 06/14/2019 ) 8 Patch 11 - sucralfate (CARAFATE) 1 gram tablet Take 1 tablet by mouth four times daily. 40 tablet 5 - L.acidoph-B.lactis-B.longum (FLORAJEN3) 460 mg (7.5-6- 1.5 bill. cell) cap Take 1 capsule by mouth once daily. 30 capsule 0 - lancets (FREESTYLE LANCETS) 28 gauge misc USE FOUR TIMES D AILY DIRECTED 400 Each 3 - blood sugar diagnostic (FREESTYLE TEST) test strip TEST fo ur times a day 400 Strip 3 - Blood-Glucose Meter (FREESTYLE LITE METER) monitoring kit 1 Each as needed. 1 Each 0 - Blood-Glucose Meter (FREESTYLE LITE METER) monitoring kit 1 Each as needed. 1 Each 0 No current facility-administered medications for this visit. REVIEW OF SYSTEMS: Constitutional: fatigue and weight gain General: no fever Appetite: Intact GI: No nausea, no vomitting, no diarrhea, no constipation PHYSICAL EXAMINATION: General Appearance: Well appearing, alert, in no acute distr ess, well-hydrated, well nourished. Affect: Pleasant and cooperative DATA: Hemoglobin A1C (%) Date Value 12/12/2018 5.8 ) Glucose (mg/dL) Date Value 12/19/2018 134 Potassium (mmol/L) Date Value 12/19/2018 4.2 Sodium (mmol/L) Date Value 12/19/2018 141 Chloride (mmol/L) Date Value 12/19/2018 102 CO2 (mmol/L) Date Value 12/19/2018 23 Creatinine (mg/dL) Date Value 12/19/2018 0.72 BUN (mg/dL) Date Value 12/19/2018 10 Anion Gap (mmol/L) Date Value 12/19/2018 16 Calcium (mg/dL) Date Value 12/19/2018 9.6 IMPRESSION: Ms. Garzon is a 53 year old female is being evaluated via [employer] [facility] for abnormal screenign etst for chsings . RECOMMENDATIONS: (R73.03) Prediabetes (primary encounter diagnosis) Comment: 5.8 in november 2018 Plan: no intervention at this time (R94.7) Nonspecific abnormal results of endocrine function rupinder parker Comment: abnormal cushings screening I dont remember any stigmata of cushings when I last saw her Plan: will arrange for a confirmatory DEX-CRH test Hypothyroidism TSH normal in May 2019 Continue the same dose . RTC based on results Ha Ortiz MD Component Latest Ref Rng AND Units 09/08/2017 09/16/2017 508/[id number]/08/2018 02/08/2018 02/08/2018 02/08/2018 05/02/2018 10/06/2018 9 12/12/2018 03/20/2019 05/24/2019 06/05/2019 06/15/2019 1:30 PM 1:30 PM 1:30 PM 1:30 PM Period hr 24 24 24 24 24 24 24 Urine Volume 3,690 Creatinine, Ur Random (UCRR) mg/dL 35 Creatinine mg/day, Urine 500 - 1,400 mg/d 1,292 Epinephrine, Ur 24hr 1 - 7 ug/d 7 Norepinephrine, Ur 24hr 16 - 71 ug/d 59 Dopamine, Ur 24hr 77 - 324 ug/d 251 Epinephrine, Ur ratio to PLASTIC BLOCK BOILER RELINER 0 - 20 ug/g PLASTIC BLOCK BOILER RELINER 6 Norepinephrine, Ur ratio to PLASTIC BLOCK BOILER RELINER 0 - 45 ug/g PLASTIC BLOCK BOILER RELINER 46 (H) Dopamine, Ur ratio to PLASTIC BLOCK BOILER RELINER 0 - 250 ug/g PLASTIC BLOCK BOILER RELINER 194 Catecholamines Interpretation SEE NOTE Epinephrine, Ur per vol ug/L 2 Norepinephrine, Ur per vol ug/L 16 Dopamine, Ur per vol ug/L 68 Creatinine mg/dL, Ur (UFRCRT) mg/dL 62 44 Creatinine mg/day, Ur (UFRCRT) 500 - 1,400 mg/d 1,415 (H) 1, 452 (H) Free Cortisol ug/L, Urine ug/L 20.30 14.80 Collection Period, Ur (UFRCRT) hr 24 Volume, Ur (UFRCRT) mL 2,283 Free Cortisol ug/day, Urine <=45.0 ug/d 46.3 (H) 48.8 (H) Cortisol ug/g Market Asset Protection Manager, Ur (UFRCRT) ug/g PLASTIC BLOCK BOILER RELINER 32.74 33.64 Free Cortisol UR, Interpretation SEE NOTE SEE NOTE Urine Volume 24 hour mL 2,283 3,690 3,690 3,690 2,800 3,300 Collection Start Date 52,418 10,152,018 10,152,018 10,152,01 8 6,132,019 Collection Start Time 1,230 1,330 1,330 1,330 940 Collection End Date 52,518 10,162,018 10,162,018 10,162,018 6,142,019 Collection End Time 1,230 1,330 1,330 1,330 940 Testosterone 8 - 60 ng/dL 39 See Comment 30 Testosterone Free % 0.8 - 2.3 % 2.3 Percent free calculation not provided by [place]. Testosterone Free 0.06 - 0.92 ng/dL 8.8 See Comment 0.42 Metanephrine 52 - 341 ug/24 hr 85 Normetanephrine 88 - 444 ug/24 hr 413 Tot Metanephrine 140 - 785 ug/24 hr 498 Hemoglobin A1C 4.3 - 5.6 % 5.8 (H) Estimated Average Glucose mg/dL 120 DHEA-S 35.4 - 256.0 ug/dL 32.1 (L) 25.7 (L) 22.7 (L) Cortisol ug/dL 29.6 8.2 34.0 ACTH <47 pg/mL 18 25 Cortisol, Saliva ug/dL 0.106 0.279 Creatinine 24 hr Ur 0.8 - 1.8 g/24 hr 1.369 1.428 1.452 VMA per 24 hours 0.0 - 8.0 mg/24hrs 3.0 TSH 0.270 - 4.200 uU/mL 2.320 1.640 2.610 Glucose, Fasting 74 - 99 mg/dL 108 (H) Insulin 3.0 - 25.0 mU/L 18.9 Tryptase <8.4 ug/L 7.2 progress on 2019-05 PROGRESS HNO ID: [id number] Normal 06-19-2019 [facility] Author: Hugo Nava [place] ([id number]) Service: ? Author Type: Physician Type: Progress Notes Filed: 06/19/2019 7:26 PM Note Text: Patient presents with: Follow Up HPI: Patient presents today for office visit for follow up. This Team Access Model visit is a walk in encounter. It required patie nt-provider interaction for the medical decision making as documented be low. Sees yane on June 25. She has an increased tremor. No familial tremor. She started estrogen two days ago. 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 Again we hav e discussed it with her about the dangers of unopposed estrogen. Again reinforced that her current issues are beyond me at th is point. She is wondering about progresterone and estrogen cream. Component Latest Ref Rng AND Units 06/15/2019 Testosterone 8 - 60 ng/dL 30 Testosterone Free 0.06 - 0.92 ng/dL 0.42 Estradiol 17B pg/mL <25 Estrone pg/mL 25.2 DHEA-S 35.4 - 256.0 ug/dL 22.7 (L) Vitamin D 25 Hydroxy 31.0 - 80.0 ng/mL 20.7 (L) Progesterone ng/mL 0.6 ACTH <47 pg/mL 25 Cortisol ug/dL 34.0 MEDICATIONS: Current Outpatient Medications Medication Sig - SYNTHROID 137 mcg tablet Take 1 tablet by mouth once daily . - ALPRAZolam (XANAX) 1 mg tablet Take 1 tablet by mouth thre e times daily as needed for up to 30 days. - sucralfate (CARAFATE) 1 gram tablet Take 1 tablet by mouth four times daily. - L.acidoph-B.lactis-B.longum (FLORAJEN3) 460 mg (7.5-6- 1.5 bill. cell) cap Take 1 capsule by mouth once daily. - lancets (FREESTYLE LANCETS) 28 gauge misc USE FOUR TIMES D AILY DIRECTED - blood sugar diagnostic (FREESTYLE TEST) test strip TEST fo ur times a day - Blood-Glucose Meter (FREESTYLE LITE METER) monitoring kit 1 Each as needed. - Blood-Glucose Meter (FREESTYLE LITE METER) monitoring kit 1 Each as needed. - compounded progesterone 50 mg capsule Take 1 capsule by [facility] twice daily. (Patient not taking: Reported on 06/14/2019 ) - Estradiol (VIVELLE-DOT) 0.0375 mg/24 hr Apply 1 Patch as d irected two times a week. (Patient not taking: Reported on 06/14/2019 ) - fluticasone (FLOVENT) 44 mcg/actuation inhaler Inhale 1 Pu ff as instructed twice daily. (Patient not taking: Reported on 05/27 ) No current facility-administered medications for this visit. ALLERGIES: ALLERGIES Allergen Reactions - Codeine GI Upset, Vomiting - Percocet [Oxycodone* Vomiting - Solumedrol [Methylp* Mental Status Change Made her rageful - Vicodin [Hydrocodon* Vomiting - Combipatch [Estradi* Intolerance feels wired, muscles hurt, lips/mouth burn, feels like asthm a flaring, nausea, dizziness. - Metformin Other: See Comments Myalgias. - Pepcid [Famotidine * Other: See Comments Dry eyes, mouth, rash, itching, anxiety - Tapazole [Methimazo* Hives PAST MEDICAL HISTORY Diagnosis Date - Abdominal pain, chronic, right upper quadrant - Asthma As a baby, then I outgrew it. - Cystocele, midline 05/13/2009 - Delayed emergence from anesthesia 09/27/2014 - Depression - Excessive or frequent menstruation Heavy periods - HSDD 10/21/2011 - Hypothyroidism should be on FRANCESCO synthroid. - Irregular menstrual cycle Irregular periods - menopause age 43 2009 in 2013 FSH 47 - Moderate dysplasia of cervix 2001 - Parent-child conflict 03/07/2013 - PMH - PAST MEDICAL HISTORY OF thyroid ablation/hypothyroid - Postmenopausal HRT (hormone replacement therapy) 12/13/2015 in 2014 took femHRT cried 11/2015 offer climara/prometrium - Rectocele 05/13/2009 - SVT (supraventricular tachycardia) (HCC) - Syncope 05/14/2013 -Reported that she had one episode of syncope at the OSH. -H ad the episode when she stood up. -No urinary incontinence or jerki ng movements. -Never had syncope episode before. -Last Echo stress test fo r her chest pain was in 2011 (normal) Plan: -Repeat the Echo: normal - T he left ventricle is normal in size. Left ventricular systolic funct ion is normal. EF = 63 ? 5% (2D biplane) - The right ventricle is normal in size. Right ventricular systolic function is normal. - There are no sign ificant valvular abnormalities. - Prior echocardiogram performed on 11/10/11 (stress echo). No significant change. - Tele - Tobacco use - Weight gain PAST SURGICAL HISTORY Procedure Laterality Date - CERVIX UTERI CONIZA LP ELCTRO EXCI 2001 LEEP-Cervix - COLONOSCOPY 04/2017 says nl - EGD W/O OR W/BRUSH/WASH 01/22/2014,2009 EGD - LAPAROSCOPIC CHOLEYCYSTECTOMY 05/19/2011 - LIGATE FALLOPIAN TUBE 2004 Tubal ligation - PAST SURGICAL HISTORY OF 1998 tubal - PAST SURGICAL HISTORY OF 2001 thyroid ablation - REMOVAL OF OVARY(S) 09/2014 laparoscopic left, CW, umbilical/upper abdominal adhesions s een benign FAMILY HISTORY Problem Relation Age of Onset - Diabetes Mother Type 2 stroke - Colon Cancer Father age 64 [place] - Diabetes Father Type 2 - Hypertension Father - Coronary Artery Disease Father Hx of [place] - Thyroid Sister hx of parathyroid disease/ hx of fibroids - other (healthy) Brother - other (healthy) Brother - Allergies Daughter - other (healthy) Daughter - other (healthy) Son - other (healthy) Son - other (healthy) Son - other (healthy) Son - Colon Cancer Paternal Aunt x5 - Colon Cancer Paternal Uncle x8 Social History Tobacco Use - Smoking status: Current Every Day Smoker Packs/day: 0.50 Types: Cigarettes Start date: 1985 - Smokeless tobacco: Never Used - Tobacco comment: Has quit intermittently, And I'm working on it now. 1st AM cigarette 10-15 minutes after awake. Most desired is that one, or last of day before bed. Prior 8 month quits, resumed after p regnancies completed. TO Substance Use Topics - Alcohol use: No - Drug use: No Reviewed current medications, allergies, past medical histor y, surgical history, family history and social history today. REVIEW OF SYSTEMS All other reviewed and negative other than HPI. VITALS: BP 140/82 Pulse 92 Resp 20 Wt 91.2 kg (201 lb) LMP 1 05/10/2009 BMI 36.76 kg/m? Last 4 Encounter Wt Readings: Date: Wt: 06/19/2019 91.2 kg (201 lb) 06/14/2019 91.6 kg (202 lb) 05/24/2019 90.3 kg (199 lb) 05/12/2019 89.8 kg (198 lb) PHYSICAL EXAMINATION: General appearance: Well appearing, alert, in no acute distr ess, well-hydrated, well nourished. Skin: Skin color, texture, turgor normal, no suspicious rash es or lesion Lungs: lungs clear to auscultation. No wheezing, rhonchi, ra les Heart: RRR without murmur, gallop, or rubs. No ectopy Abdomen: Normal abdominal exam, Abdomen soft, non-tender. Otoniel wel sounds normal. No masses, organomegaly Extremities: No deformities, edema, skin discoloration, club kimber or cyanosis. Good capillary refill. ASSESSMENT/PLAN: 1. Hormone disturbance - ICD9: 259.9, ICD10: E34.9 - reinforced need to see endo and keep one and work with the m. Again explained that at this point it is beyond my area of e xpertise. I think she does have underlying anxiety about medications d ue to issues she has had in the past which complicates our ability to alex at. Reinforced that if she is going to take estrogen that she take progeste juhi as well. She will touch base with me after yane. Hugo Nava MD cnov on 2019-06-19 CNOV Office Visit (FAMPWS) Normal 06-19-19 [place] [facility] FLORAJAZLYN Reveles ([id number]) 1965 [facility] Date Time Provider Department ([id number]) 06/19/19 10:40 AM HUGO NAVA During your visit today, we recorded the following informati on about you: Pulse Respiration Blood pressure Weight 92/minute 20/minute 140/82 91.2 kg Hugo Nava MD 06/19/2019 7:26 PM Signed Patient presents with: Follow Up HPI: Patient presents today for office visit for shea garcia. This Team Access Model visit is a walk in encounter. It required patien t-provider interaction for the medical decision making as documented below. Sees yane on June 25. She has an increased tremor. No familial tremor. She started estrogen two days ago. 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 Again we have discussed it with her about the dangers of unopposed estrogen. Again reinforced that her current issues are beyond me at th is point. She is wondering about progresterone and estrogen cream. Component Latest Ref Rng AND Units 06/15/2019 Testosterone 8 - 60 ng/dL 30 Testosterone Free 0.06 - 0.92 ng/dL 0.42 Estradiol 17B pg/mL <25 Estrone pg/mL 25.2 DHEA-S 35.4 - 256.0 ug/dL 22.7 (L) Vitamin D 25 Hydroxy 31.0 - 80.0 ng/mL 20.7 (L) Progesterone ng/mL 0.6 ACTH <47 pg/mL 25 Cortisol ug/dL 34.0 MEDICATIONS: Current Outpatient Medications Medication Sig - SYNTHROID 137 mcg tablet Take 1 tablet by mouth once daily . - ALPRAZolam (XANAX) 1 mg tablet Take 1 tablet by mout h three times daily as needed for up to 30 days. - sucralfate (CARAFATE) 1 gram tablet Ta ke 1 tablet by mouth four times daily. - L.acidoph-B.lactis-B.longum (FLORAJEN3) 460 mg (7.5- 6- 1.5 bill. cell) cap Take 1 capsule by mouth once daily. - lancets (FREESTYLE LANCETS) 28 gauge misc USE FOUR T IMES DAILY DIRECTED - blood sugar diagnostic (FREESTYLE TEST) test strip TEST fo ur times a day - Blood-Glucose Meter (FREESTYLE LITE METER) mon itoring kit 1 Each as needed. - Blood-Glucose Meter (FREESTYLE LITE METER) mon itoring kit 1 Each as needed. - compounded progesterone 50 mg capsule Take 1 capsule by mouth twice daily. (Patient not taking: Reported on 06/14/2019 ) - Estradiol (VIVELLE-DOT) 0. 0375 mg/24 hr Apply 1 Patch as directed two times a week. (Patient not taking: Reported on 06/14/2019 ) - fluticasone (FLOVENT) 44 mcg/actuation inhaler Inhal e 1 Puff as instructed twice daily. (Patient not taking: Reported on 06/14/2019 ) No current facility-administered medications for this visit. ALLERGIES: ALLERGIES Allergen Reactions - Codeine GI Upset, Vomiting - Percocet [Oxycodone* Vomiting - Solumedrol [Methylp* Mental Status Change Made her rageful - Vicodin [Hydrocodon* Vomiting - Combipatch [Estradi* Intolerance feels wired, muscles hurt, lips/mouth burn, feels like asthm a flaring, nausea, dizziness. - Metformin Other: See Comments Myalgias. - Pepcid [Famotidine * Other: See Comments Dry eyes, mouth, rash, itching, anxiety - Tapazole [Methimazo* Hives PAST MEDICAL HISTORY Diagnosis Date - Abdominal pain, chronic, right upper quadrant - Asthma As a baby, then I outgrew it. - Cystocele, midline 05/13/2009 - Delayed emergence from anesthesia 09/27/2014 - Depression - Excessive or frequent menstruation Heavy periods - HSDD 10/21/2011 - Hypothyroidism should be on FRANCESCO synthroid. - Irregular menstrual cycle Irregular periods - menopause age 43 2009 in 2013 FSH 47 - Moderate dysplasia of cervix 2001 - Parent-child conflict 03/07/2013 - PMH - PAST MEDICAL HISTORY OF thyroid ablation/hypothyroid - Postmenopausal HRT (hormone replacement therapy) 12/13/2015 in 2014 took femHRT cried 11/2015 offer climara/prometrium - Rectocele 05/13/2009 - SVT (supraventricular tachycardia) (HCC) - Syncope 05/14/2013 -Reported that she had one episode of syncope at the OSH. -H ad the episode when she stood up. -No urinary incontinence or jerking movements. -Never had syncope episode before. -Last Echo stress test f or her chest pain was in 2011 (normal) Plan: -Repeat the Echo: normal - The left ventricle is normal in size. Left ventricular systo lic function is normal. EF = 63 ? 5% (2D biplane) - The right ventricle is normal in size. Right joel tricular systolic function is normal. - There are no significant valvular abnormalities. - Prior echocardiogram performed on 11/10/11 (stress echo). No significant change. - Tele - Tobacco use - Weight gain PAST SURGICAL HISTORY Procedure Laterality Date - CERVIX UTERI CONIZA LP ELCTRO EXCI 2001 LEEP-Cervix - COLONOSCOPY 04/2017 says nl - EGD W/O OR W/BRUSH/WASH 01/22/2014,2009 EGD - LAPAROSCOPIC CHOLEYCYSTECTOMY 05/19/2011 - LIGATE FALLOPIAN TUBE 2003 Tubal ligation - PAST SURGICAL HISTORY OF 1998 tubal - PAST SURGICAL HISTORY OF 2001 thyroid ablation - REMOVAL OF OVARY(S) 09/2014 laparoscopic left, CW, umbilical/upper abdominal adhesions s een benign FAMILY HISTORY Problem Relation Age of Onset - Diabetes Mother Type 2 stroke - Colon Cancer Father age 64 [place] - Diabetes Father Type 2 - Hypertension Father - Coronary Artery Disease Father Hx of [place] - Thyroid Sister hx of parathyroid disease/ hx of fibroids - other (healthy) Brother - other (healthy) Brother - Allergies Daughter - other (healthy) Daughter - other (healthy) Son - other (healthy) Son - other (healthy) Son - other (healthy) Son - Colon Cancer Paternal Aunt x5 - Colon Cancer Paternal Uncle x8 Social History Tobacco Use - Smoking status: Current Every Day Smoker Packs/day: 0.50 Types: Cigarettes Start date: 1985 - Smokeless tobacco: Never Used - Tobacco comment: Has quit intermittently, And I'm working on it now. 1st AM cigarette 10-15 minutes after awake. Most desire d is that one, or last of day before bed. Prior 8 month quits, resumed after pregnancies c ompleted. TO Substance Use Topics - Alcohol use: No - Drug use: No Reviewed current medications, allergies, past medical histor y, surgical history, family history and social history today. REVIEW OF SYSTEMS All other reviewed and negative other than HPI. VITALS: BP 140/82 Pulse 92 Resp 20 Wt 91.2 kg (201 lb) LMP 1 05/10/2009 BMI 36.76 kg/m? Last 4 Encounter Wt Readings: Date: Wt: 06/19/2019 91.2 kg (201 lb) 06/14/2019 91.6 kg (202 lb) 05/24/2019 90.3 kg (199 lb) 05/12/2019 89.8 kg (198 lb) PHYSICAL EXAMINATION: General appearance: Well abi earing, alert, in no acute distress, well-hydrated, well nourished. Skin: Skin color, texture, turgor normal, no suspicious rash es or lesion Lungs: lungs clear to auscultation. No wheezing, rhonchi, ra les Heart: RRR without murmur, gallop, or rubs. No ectopy Abdomen: Normal abdominal exam, Abdomen soft, non-tender. Bowel sounds normal. No masses, organomegaly Extremities: No deformities, edema, skin discolo ration, clubbing or cyanosis. Good capillary refill. ASSESSMENT/PLAN: 1. Hormone disturbance - ICD9: 259.9, ICD10: E34.9 - reinforced need to see endo and keep one and work with the m. Again explained that at this point it is beyond my area of e xpertise. I think she does have underlying anxiety about medicat ions due to issues she has had in the past which complicates ou r ability to treat. Reinforced that if she is going to take estrogen that she take progesterone as well. She will touch base with me after endo. Hugo Nava MD Referring Provider: SELF [[id number]] Allergies As of Date: 06/19/2019 Noted Allergy Reaction CODEINE 09/27/2014 8 - GI Upset 11 - Vomiting PERCOCET (OXYCODONE-ACETAMINOPHEN)07/17/2011 11 - Vomiting SOLUMEDROL (METHYLPREDNISOLONE SO*01/22/2014 1 - Mental Stat us Change Comments: Made her rageful VICODIN (HYDROCODONE-ACETAMINOPHE*07/17/2011 11 - Vomiting COMBIPATCH (ESTRADIOL-NORETHINDRO*10/26/2016 5 - Intolerance Comments: feels wired, muscles hurt, lips/mouth burn, feels like asthma flaring, nausea, dizziness. METFORMIN 10/28/2017 14 - Other: See Comments Comments: Myalgias. PEPCID (FAMOTIDINE (PF)) 07/07/2016 14 - Other: See Comments Comments: Dry eyes, mouth, rash, itching, anxiety TAPAZOLE (METHIMAZOLE) 10/14/2005 4 - Hives Date Reviewed: 05/24/2019 Reviewed by: Sudha Pink LPN - Fully Assessed Reason for Visit: Follow Up [171] Primary Visit Diagnosis:Hormone disturbance [E34.9] Prescriptions as of 06/19/2019 Sig: SYNTHROID 137 MCG TABLET Take 1 tablet by mouth once d* ALPRAZOLAM 1 MG TABLET Take 1 tablet by mouth three * SUCRALFATE 1 GRAM TABLET Take 1 tablet by mouth four t* FLORAJEN3 460 MG (7.5-6-1.5 B* Take 1 capsule by mouth once * LANCETS 28 GAUGE USE FOUR TIMES DAILY DIREC* BLOOD SUGAR DIAGNOSTIC STRIPS TEST four times a day BLOOD-GLUCOSE METER KIT 1 Each as needed. BLOOD-GLUCOSE METER KIT 1 Each as needed. CPD PROGESTERONE 50 MG CAPSULE Take 1 capsule by mouth twice * Patient not taking: Reported on 06/14/2019 ESTRADIOL 0.0375 MG/24 HR MANJU* Apply 1 Patch as directed two * Patient not taking: Reported on 06/14/2019 Problem List As Of Date 06/19/2019 Noted Resolved Postablative hypothyroidism [E89.0] 04/06/2006 More... Excessive or frequent menstruation [N92.0] 01/05/20072011 Irregular menstrual cycle [N92.6] 01/05/2007 10/06/2011 Unspecified aftercare [Z51.89] 05/26/2011 10/06/2011 Abdominal pain, chronic, right upper quadrant [* 10/06/2011 Post-menopause [Z78.0] 10/21/2011 03/18/2015 More... URI (upper respiratory infection) [J06.9] 05/14/2013 015 More... Pneumonia [J18.9] 05/14/2013 07/11/2014 More... More... More... More... More... Adrenal disorder [E27.9] 05/24/2013 07/11/2014 hx of low vitamin D [E55.9] 06/01/2013 Panic disorder with agoraphobia [F40.01] 07/10/2013 Chronic fatigue fibromyalgia syndrome [R53.82, *07/12/2013 Marital conflict [Z63.0] 08/30/2013 07/11/2014 Blood pressure elevated without history of HTN *09/06/2014 Impaired glucose tolerance [R73.02] 09/06/2014 More... Ovarian cyst [N83.209] 09/24/2014 03/18/2015 SVT (supraventricular tachycardia) (HCC) [I47.1]09/27/2014 Delayed emergence from anesthesia [T88.59XA] 09/27/201409/25 On home oxygen therapy [Z99.81] 09/27/2014 12/13/2015 PTSD (post-traumatic stress disorder) [F43.10] 11/01/2014 Attention deficit hyperactivity disorder (ADHD)*11/08/2014 Recurrent major depressive disorder, in partial*07/09/2015 Encounter for screening mammogram for malignant*12/12/2015 0 11/09/2016 menopause age 43 [N95.1] Tobacco use [Z72.0] Postmenopausal HRT (hormone replacement therapy*12/13/2015 0 11/09/2016 Weight gain [R63.5] 10/19/2017 GERD without esophagitis [K21.9] 05/12/2017 More... Simple chronic bronchitis (HCC) [J41.0] 12/01/2017 More... Irritable bowel syndrome with diarrhea [K58.0] 12/14/2017 Systemic lupus erythematosus (HCC) [M32.9] 02/14/2018 Burning sensation of mouth [R20.8] 02/16/2018 Burning sensation of skin [R20.8] 02/16/2018 Sleep difficulties [G47.9] 02/16/2018 Mitral valve prolapse [I34.1] 02/23/2018 More... Screening for malignant neoplasm of the cervix *06/20/2018 Visit for pelvic exam [Z01.419] 06/20/2018 Encounter for screening mammogram for malignant*06/20/2018 Estrogen deficiency [E28.39] 06/20/2018 Adrenal adenoma, left [D35.02] 08/25/2018 More... Medications Discontinued During This Encounter fluticasone (FLOVENT) 44 mcg/actuati* 1 In* 1 05/02/20192019 Route: INHALATION Sig: Inhale 1 Puff as instructed twice daily. Patient not taking: Reported on 06/14/2019 Disc: Reason for discontinue is not on file. Disposition: Return in about 4 weeks (around 07/17/2019). Follow-up and Disposition History Recorded Encounter Status:Closed by HUGO NAVA MD on 06/19/19 progress on 2019-05 PROGRESS HNO ID: [id number] Normal 06-16-2019 [facility] Author: Michelle Andrea (Tech) [place] ([id number]) Service: ? Author Type: Documentation Writer Type: Progress Notes Filed: 06/16/2019 1:48 PM Note Text: Radiology Service Progress Note PATIENT NAME: Jazlyn Garzon DATE OF SERVICE: June 16, 2019 TIME: 1:48 PM PATIENT IDENTITY VERIFICATION COMPLETED USING TWO (2) IDENTI FIERS: Name and Date of confirmed by patient verbally. PATIENT GENDER DATA: Female. status: : No status: NO. PATIENT RELEVANT IMPLANT DATA REVIEWED: Not Applicable RADIOLOGY DEPARTMENT: Mammography PERIPHERAL IV DATA: Not applicable SIGNED BY: Michelle Andrea June 16, 2019 1:48 PM rosalie screening on 15-06-20 ROSALIE SCREENING * * *Final Report* * * Normal [facility] DATE OF EXAM: Jun 16 2019 1:18PM [place] ([id number]) [facility] [id number] - ROSALIE SCREENING / PROCEDURE REASON: Screening breast examination * * * * Physician Interpretation * * * * RESULT: #[id number] - ROSALIE SCREENING BILATERAL DIGITAL SCREENING MAMMOGRAM WITH CAD: 06/16/2019 HISTORY: Screening Breast Examination /Screening Mammogram - /SEE TECH NOTE patient reports breast symptoms /Priors available for c omparison. RESULT: TECHNIQUE: The study was acquired using full field digital t echnology and interpreted from soft copy. Current study was also evaluated with a Computer Aided Detec tion (CAD). Comparison is made to exams dated: 12/24/2015 mammogram, 06/07 mammogram, and 01/21/2012 mammogram - [facility]. There are scattered fibroglandular elements in both breasts. No significant masses, calcifications, or other findings are seen in either breast. There has been no significant interval change. IMPRESSION: NEGATIVE There is no abnormality seen in either breast to correspond with the diffuse pain, however, clinical followup is recommended. There is no mammographic evidence of malignancy. A 1 year sc reening mammogram is recommended. Gabriella White M.D. pt/lolis:06/16/2019 13:52:33 Senior Quality Manager(s): RT Emre(R)(M), [facility] letter sent: Normal over 40 Mammogram BI-RADS: 1 Negative Multiple national specialty organizations have released rony st cancer screening guidelines for women at average risk for developin g breast cancer - guidelines that are based on both evidence and opin ion, yet differ on when to start and how often to screen for breast c ancer. With representation from Breast Imaging, Internal Medicine, Women 's Health, Family Medicine, and Medical/Surgical Oncology, the [facility] has carefully reviewed the data and reached the following consen william: 1) All women should engage in shared decision-making with eir providers to decide when to start and how often to screen; 2) All women should have the opportunity to start screening mammography at age 40; 3) For women ages 45-55, we recommend annual screening mammo grams; 4) For women ages 55 and over, we support both the transitio n from an annual to a biennial interval if this aligns more with patie nt's values and preferences, or continuation with annual screening; 5) All women should discuss with their providers when to sto p screening mammograms. Audiovisual Technician: Lolis Transcribe Date/Time: Jun 16 2019 12:55P Dictated by: GABRIELLA WHITE MD This examination was interpreted and the report reviewed and electronically signed by: GABRIELLA WHITE MD on Jun 16 2019 1:52PM EST [id number] cnco on 2019-06-16 CNCO HNO ID: [id number] Normal 06-16-2019 [facility] Author: Mammography Coordinator ([id number]) Service: ? Author Type: Physician Type: Letter Filed: 06/19/2019 11:34 PM Note Text: June 16, 2019 PID: [id number] Jazlyn Orlando Garzon [address] [place] [address] Dear Sarah Garzon, We are pleased to inform you that the results of your recent breast imaging exam on 06/16/2019 are normal. Early detection of cancer is very important. We also underst and recommendations regarding breast cancer screening are contro versial. Please discuss with your primary care provider which strateg y is best for you and whether a mammogram is right for you. Your imaging studies and report will be kept on file at [facility] as part of your permanent medical record and are available f or your continuing care. Thank you for allowing us to help in meeting your health car e needs. Sincerely, Dr. White Interpreting Radiologist [facility] (Normal over 40) vitamin d 25 hydroxy on 2019-06-15 Vitamin D 25 Hydroxy 20.7 31.0-80.0 ng/mL Low 0 [facility] ([id number]) Comment: Result Comment: Classificati on of 25 [place] Vitamin D status: Insufficiency/Moderate Defic iency: < or = 30 ng/mL Sufficiency/Optimal Levels: 31 to 80 ng/mL Toxicity: > 100 ng/mL Test performed by chemilumin escent immunoassay. Performed By: #### DHEAS, TD, PROG, E2 #### [facility] [address] [place], [place] [address] #### EST #### [facility] [address] [place] [address] [phone] testosterone, tot/fr on 2019-06-15 Testosterone [Mass/Vol] 30 8-60 ng/dL Normal 2019 [facility] ([id number]) Comment: Result Comment: (NOTE) ADDITIONA L INFORMATION Testing performed by Liquid Chromatography-Tandem Mass Spectrometry (LC-MS/MS). This test was developed and its performance characteristics determined by [facility] in a manner consistent with CLIA requirements. This test has not been cleared or approved by the U.S. Food and Drug Admin istration. Performed By: #### TFTEST ## ## [facility] [address] [place] [address] Testosterone, Free 0.42 0.06-0.92 ng/dL Normal 06-15-2019 [facility] ([id number]) Comment: Result Comment: (NOTE) ADDITIONA L INFORMATION Testing performed by [facility]. This test was developed and its performance characteristics determined by [facility] in a manner consistent with CLIA requirements. This test has not been cleared or approved by the U.S. Food and Drug Admin istration. Performed By: #### TFTEST ## ## [facility] [address] [place] [address] progesterone on 202 Progesterone 0.6 ng/mL Normal 06-15-2019 [facility] ([id number]) Comment: Result Comment: Menstrual Cy soy Progesterone Reference Ranges: Follicular:<1.0 ng/mL Ovulation:<12.1 ng/mL Luteal:1.8 to 23.9 ng/mL Progesterone Refer ence Ranges vary by gestational period: First Trimester:11.0 to 44.3 ng/mL Second Trimester:25.4 to >60 .0 ng/mL Third Trimester:58.7 to >60. 0 ng/mL Post menopausal Progesterone :<0.5 ng/mL Reference: 1. Progesterone ( Progesterone III) [package insert V 1.0 Mexican]. [facility], [place], [place]. January 2015. Performed By: #### DHEAS, TD, PROG, E2 #### [facility] [address] [place], [place] [address] #### EST #### [facility] [address] [place] [address] [phone] estrone on Estrone 25.2 pg/mL Normal 06-15-2019 [facility] ([id number]) Comment: Result Comment: (NOTE) Females: Pre-menopausal: Early follic ular <150.0 pg/mL Pre-menopausal: Late follicu lar 100.0-250.0 pg/mL Pre-menopausal: Luteal <200. 0 pg/mL Post-menopausal 3.0-32.0 pg/ mL REFERENCE INTERVAL: Estrone by [facility] Access complete set of age- and/or gender-specific reference intervals for this test in [facility] Test Directory ([employer]). Test developed and character istics determined by [facility]. See Compliance Statement B: [employer]/ Performed by [employer] , [address] [place], [place] [address] [email or web address], Wilner Saenz do, MD, Lab. Director Performed By: #### DHEAS, TD, PROG, E2 #### [facility] [address] [place], [place] [address] #### EST #### [facility] [address] [address] [phone] estradiol-17b on 15-06-19 Estradiol-17B <25 Normal 06-15-2019 [facility] ([id number]) Comment: Result Comment: This test is not suitable for patients receiving treatment with the drug Fulvestrant (Faslodex). The drug causes an interference leading to falsely elevated estradiol results. Menstrual cycle Estradiol re ference ranges: Follicular : < 234 pg/mL Ovulation : 41 to 398 pg/mL Luteal : < 342 pg/mL Estradiol referenc e ranges vary by gestational period: First trimester : 154 to 324 3 pg/mL Second trimester : 1561 TO 2 1280 pg/mL Third trimester : 8285 to >3 0000 pg/mL Post-menopausal Estradiol re ference range: < 41 pg/mL Reference: 1. Estradiol - E2 (Estradiol III) [package insert V 3.0 Mexican]. [facility], [place], [place], September 2015. Performed By: #### DHEAS, TD, PROG, E2 #### [facility] [address] [place], [place] [address] #### EST #### [facility] [address] [place] [address] [phone] dhea-s on 2019-05-28 0 DHEA-S 22.7 35.4-256.0 ug/dL Low 06-15-2019 [facility] ([id number]) Comment: Result Comment: Reference ra nges are age and gender specific. For additional information, reference range tables can be found in the laboratory test directory. The normal values are based on the following source: Dehydroepiandrosterone sulfate (DHEA S) [package insert V 17.0 Mexican]. [facility], [place], [place]: November 2012. Performed By: #### DHEAS, TD, PROG, E2 #### [place] [address] [place], [place] [address] #### EST #### [facility] [address] [place], [place] [id number] [phone] cortisol on 2019-05 Cortisol 34.0 ug/dL Normal 06-15-2019 [facility] ([id number]) Comment: Result Comment: Cortisol Ref erence Range: AM = 5.3-22.5, PM = 3.4-16.8 Performed By: #### DHEAS, TD, PROG, E2 #### [facility] [address] [place], [place] [address] #### EST #### [facility] [address] [place], [place] [id number] [phone] acth on 2019-06-15 ACTH 25 <47 pg/mL Normal 06-15-2019 [facility] ([id number]) Comment: Performed By: #### DHEAS, TD, PROG, E2 #### [facility] [address] [place], [place] [address] #### EST #### [facility] [address] [place] [address] [phone] progress on 2019-05 PROGRESS HNO ID: [id number] Normal 06-14-2019 [facility] Author: Hugo Nava [place] ([id number]) Service: ? Author Type: Physician Type: Progress Notes Filed: 06/14/2019 6:08 PM Note Text: Patient presents with: Pain HPI: Patient presents today for office visit for follow up. This Team Access Model visit is a walk in encounter. It requ ired patient-provider interaction for the medical decision making as documented below. Nursing Notes: Jazlyn Garcia Ma 06/14/2019 1:23 PM Signed PAIN: Pt c/o pain in abdomen that radiates down legs. Feels like menstrual cramps. Has tender breasts. Tension headache. Racing heart. Has tremors in hands. seen in follow up from last visit. Again has an extensive li st of symptoms and has seen an extensive number of providers. 05/24/2019 She did finally get her vivelle-dot since insurance was [employer]. She has not started it yet due to stresses at home. Her daughter had a tubal and her aunt is dying in hospice. She requests a r efill of xanax to get through the next few weeks. Checked oarrs. She is gelacio re of risks of meds. ? Since here last has seen gi and obstetrics and gynecology professor. Wanted to have scopes p erformed by Dr. Hernandez. She states she will be getting these done. Antione wheat, has been intolerant of any class of gi meds. ? She still has an extensive list of symptoms including skin b urning, reflux. Fatigue, dizziness, abdominal fullness. Again, she has seen an extensive number of specialists toyin smith from endo, gi, surgery, pulmonary, cardiology, obstetrics and gynecology professor, rheumatology, funct ional medicine, neurology, etc. She has had extensive testing. The one consistent thing is that when she can tolerate hormones, she feels relatively normal. 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 We have had extensive discussions a bout avoiding unopposed estrogen. She has issues with swelling and tolerat ing progesterone. Is willing to try a lower compounded dose bid to see if that would help. She has done extensive reading and asks about si mply checking serial pelvic ultrasounds or using topical vaginal progester one, neither of which I explained I would be comfortable doing as a famil y practicioner. I have spoken with her previously and today ab out seeing a hormonal specialist again. I even suggested that she could s ee a holistic physician if she would desires since we have thus far not be en able to find a solution for her. She prefers to have us do it realiz ing that we are not a specialist in this area. I reinforced that she nee ds to have regular mammograms if she is to receive hormones. In additio n, she is aware of the various risks, also being a smoker. She also as ks to have a standing order for hormone levels to be checked should she h ave symptoms. I have previously offered to have her see an rig builder at a tertiary center like [facility] or [facility] or , however, she prefers t o have us manage things. ? We have discussed that anxiety and stress certainly play a r ole. Whether they are caused by her issues or help to worsen them, her pr oblems are exacerbated by not being able to literally tolerate any medi cations. We have discussed in the past that she may well have anxiety pr ovoked simply by trying new meds as well. Given her current stress issues, we could consider counseling of some type if she is willing down the road. ? She is not taking the hygroton or current progesterone. She did not get her tilt table test. Again, I have wondered about the possib ility of POTS given her symptoms. She still has occasional cough and wheez e but is still smoking. Given her current issues, now is not a good time to push for cessation. Since last here, she has made an appt to return to see Dr. Antonieta hernandez who has recently gotten a fee cortisol result back. Appears to be no t completed yet. Still listed as preliminary as of 06/01 She is concerned about the findings of her labs in that she feels her physical stress is high. She declines to do the tilt table t est. She has not yet taken progesterone. She wants to have additional hor leandro levels done. She also requests and acth. And dhea level. Again reit erated to her that she needs to see the endo for evaluation of her levels. She did see surgery. She is going to have endo and colonosco py in June. Component Latest Ref Rng AND Units 05/24/2019 06/05/2019 Creatinine mg/dL, Ur (UFRCRT) mg/dL 44 Creatinine mg/day, Ur (UFRCRT) 500 - 1,400 mg/d 1,452 (H) Free Cortisol ug/L, Urine ug/L 14.80 Free Cortisol ug/day, Urine <=45.0 ug/d 48.8 (H) Cortisol ug/g Market Asset Protection Manager, Ur (UFRCRT) ug/g PLASTIC BLOCK BOILER RELINER 33.64 Free Cortisol UR, Interpretation SEE NOTE TSH 0.270 - 4.200 uU/mL 2.610 MEDICATIONS: Current Outpatient Medications Medication Sig - ALPRAZolam (XANAX) 1 mg tablet Take 1 tablet by mouth thre e times daily as needed for up to 30 days. - sucralfate (CARAFATE) 1 gram tablet Take 1 tablet by mouth four times daily. - compounded progesterone 50 mg capsule Take 1 capsule by [facility] twice daily. (Patient not taking: Reported on 06/14/2019 ) - Estradiol (VIVELLE-DOT) 0.0375 mg/24 hr Apply 1 Patch as d irected two times a week. (Patient not taking: Reported on 06/14/2019 ) - fluticasone (FLOVENT) 44 mcg/actuation inhaler Inhale 1 Pu ff as instructed twice daily. (Patient not taking: Reported on 05/27 ) - L.acidoph-B.lactis-B.longum (FLORAJEN3) 460 mg (7.5-6- 1.5 bill. cell) cap Take 1 capsule by mouth once daily. - lancets (FREESTYLE LANCETS) 28 gauge misc USE FOUR TIMES D AILY DIRECTED - blood sugar diagnostic (FREESTYLE TEST) test strip TEST fo ur times a day - Blood-Glucose Meter (FREESTYLE LITE METER) monitoring kit 1 Each as needed. - Blood-Glucose Meter (FREESTYLE LITE METER) monitoring kit 1 Each as needed. No current facility-administered medications for this visit. ALLERGIES: ALLERGIES Allergen Reactions - Codeine GI Upset, Vomiting - Percocet [Oxycodone* Vomiting - Solumedrol [Methylp* Mental Status Change Made her rageful - Vicodin [Hydrocodon* Vomiting - Combipatch [Estradi* Intolerance feels wired, muscles hurt, lips/mouth burn, feels like asthm a flaring, nausea, dizziness. - Metformin Other: See Comments Myalgias. - Pepcid [Famotidine * Other: See Comments Dry eyes, mouth, rash, itching, anxiety - Tapazole [Methimazo* Hives PAST MEDICAL HISTORY Diagnosis Date - Abdominal pain, chronic, right upper quadrant - Asthma As a baby, then I outgrew it. - Cystocele, midline 05/13/2009 - Delayed emergence from anesthesia 09/27/2014 - Depression - Excessive or frequent menstruation Heavy periods - HSDD 10/21/2011 - Hypothyroidism should be on FRANCESCO synthroid. - Irregular menstrual cycle Irregular periods - menopause age 43 2009 in 2012 FSH 47 - Moderate dysplasia of cervix 2001 - Parent-child conflict 03/07/2013 - PMH - PAST MEDICAL HISTORY OF thyroid ablation/hypothyroid - Postmenopausal HRT (hormone replacement therapy) 12/13/2015 in 2014 took femHRT cried 11/2015 offer climara/prometrium - Rectocele 05/13/2009 - SVT (supraventricular tachycardia) (HCC) - Syncope 05/14/2013 -Reported that she had one episode of syncope at the OSH. -H ad the episode when she stood up. -No urinary incontinence or jerki ng movements. -Never had syncope episode before. -Last Echo stress test fo r her chest pain was in 2011 (normal) Plan: -Repeat the Echo: normal - T he left ventricle is normal in size. Left ventricular systolic funct ion is normal. EF = 63 ? 5% (2D biplane) - The right ventricle is normal in size. Right ventricular systolic function is normal. - There are no sign ificant valvular abnormalities. - Prior echocardiogram performed on 11/10/11 (stress echo). No significant change. - Tele - Tobacco use - Weight gain PAST SURGICAL HISTORY Procedure Laterality Date - CERVIX UTERI CONIZA LP ELCTRO EXCI 2001 LEEP-Cervix - COLONOSCOPY 04/2017 says nl - EGD W/O OR W/BRUSH/WASH 01/22/2014,2009 EGD - LAPAROSCOPIC CHOLEYCYSTECTOMY 05/19/2011 - LIGATE FALLOPIAN TUBE 2003 Tubal ligation - PAST SURGICAL HISTORY OF 1998 tubal - PAST SURGICAL HISTORY OF 2001 thyroid ablation - REMOVAL OF OVARY(S) 09/2014 laparoscopic left, CW, umbilical/upper abdominal adhesions s een benign FAMILY HISTORY Problem Relation Age of Onset - Diabetes Mother Type 2 stroke - Colon Cancer Father age 64 [place] - Diabetes Father Type 2 - Hypertension Father - Coronary Artery Disease Father Hx of [place] - Thyroid Sister hx of parathyroid disease/ hx of fibroids - other (healthy) Brother - other (healthy) Brother - Allergies Daughter - other (healthy) Daughter - other (healthy) Son - other (healthy) Son - other (healthy) Son - other (healthy) Son - Colon Cancer Paternal Aunt x5 - Colon Cancer Paternal Uncle x8 Social History Tobacco Use - Smoking status: Current Every Day Smoker Packs/day: 0.50 Types: Cigarettes Start date: 1985 - Smokeless tobacco: Never Used - Tobacco comment: Has quit intermittently, And I'm working on it now. 1st AM cigarette 10-15 minutes after awake. Most desired is that one, or last of day before bed. Prior 8 month quits, resumed after p regnancies completed. TO Substance Use Topics - Alcohol use: No - Drug use: No Reviewed current medications, allergies, past medical histor y, surgical history, family history and social history today. REVIEW OF SYSTEMS All other reviewed and negative other than HPI. HEALTH MAINTENANCE: VITALS: BP 136/84 Pulse 115 Wt 91.6 kg (202 lb) LMP 03/10/2010 SpO2 98% BMI 36.95 kg/m? Last 4 Encounter Wt Readings: Date: Wt: 06/14/2019 91.6 kg (202 lb) 05/24/2019 90.3 kg (199 lb) 05/12/2019 89.8 kg (198 lb) 05/05/2019 89.8 kg (198 lb) PHYSICAL EXAMINATION: General appearance: Well appearing, alert, in no acute distr ess, well-hydrated, well nourished. Skin: Skin color, texture, turgor normal, no suspicious rash es or lesions Head: Normocephalic, no masses, lesions, tenderness or abnor malitie Lungs: lungs clear to auscultation. No wheezing, rhonchi, ra les Heart: RRR without murmur, gallop, or rubs. No ectopy Abdomen: Normal abdominal exam, Abdomen soft, non-tender. Otoniel wel sounds normal. No masses, organomegaly Extremities: No deformities, edema, skin discoloration, club kimber or cyanosis. Good capillary refill. Musculoskeletal: No joint swelling, deformity, or tenderness Peripheral pulses: Normal Neuro: Negative. ASSESSMENT/PLAN: 1. Hormone disturbance - ICD9: 259.9, ICD10: E34.9 (primary diagnosis) - check labs. Reinforced need to see endo and stick with one who is comfortable working with her hormonal issues. Her complaints remain her same chronic issues. Discussed that I am limited as a pcp wi th my comfort level with treating her current issues at this point. Update me after her endo appt. - DHEA-S BLD - VITAMIN D 25 HYDROXY - PROGESTERONE BLD 2. Postablative hypothyroidism - ICD9: 244.1, ICD10: E89.0 - SYNTHROID 137 MCG TABLET Hugo Nava MD cnov on 2019-06-14 CNOV Office Visit (FAMPWS) Normal 06-14-19 [place] JAZLYN Jones ([id number]) 1965 [facility] Date Time Provider Department ([id number]) 06/14/19 1:00 PM HUGO NAVA During your visit today, we recorded the following informati on about you: Pulse Blood pressure Weight 115/minute 136/84 91.6 kg Jazlyn Garcia Ma 06/14/2019 1:23 PM Signed PAIN: Pt c/o pain in abdomen that radiates down legs. Feels like menstrual cramps. Has tender breasts. Tension headache. Racing heart. Has tremors in hands. Hugo Nava MD 06/14/2019 6:08 PM Signed Patient presents with: Pain HPI: Patient presents today for office visit for follow up. This Team Access Model visit is a walk in encounter. It requ ired patient-provider interaction for the medical decision making as documented below. Nursing Notes: Jazlyn Garcia Fred 06/14/2019 1:23 PM Signed PAIN: Pt c/o pain in abdomen that radiates down legs. Feels like menstrual cramps. Has tender breasts. Tension headache. Racing heart. Has tremors in hands. seen in follow up from last visit. Again has an extensive list of symptoms and has seen an extensive number of providers. 05/24/2019 She did finally get her [employer] insurance was being diffult. She has not started it yet due to stresses at [facility]. Her daughter had a tubal and her aunt is dying in [facility]. She requests a refill of xanax to get through the next few weeks. Checked oarrs. She is aware of risks of meds. ? Since here last has seen gi and obstetrics and gynecology professor. Wanted to have scopes performed by Dr. Hernandez. She states she will be getting these done. Again, has been intolerant of any class of gi meds. ? She still has an extensive list of symptoms including skin burning, reflux. Fatigue, dizziness, abdominal fullness. Again, she has seen an extensive number of speci alists ranging from endo, gi, surgery, pulmonary, cardiology, obstetrics and gynecology professor, rheumatology, functiona l medicine, neurology, etc. She has had extensive testing. The one consistent thing is that when she can tolerate hormones, she feels relatively normal. The difficult thing is that she has been unable to tolerate much retirement . We have had extensive discussions about avoiding unopposed estroge n. She has issues with swelling and tolerating prog esterone. Is willing to try a lower compounded dose bid to see if that would help. She has done extensive reading and asks about simply checking serial pelvic ultrasounds or using topical v aginal progesterone, neither of which I explained I would be comfortable doing as a family practicioner. I have spoken with her previously and today about seeing a hormonal specialist again. I even suggested that she could s ee a holistic physician if she would desires since we have elizabeth s far not been able to find a solution for her. She prefers to have us do it realizing dionicio t we are not a specialist in this area. I r einforced that she needs to have regular mammograms if she is to receive hormones. In additi on, she is aware of the various risks, also being a smoker. She also asks to deleon ve a standing order for hormone levels to be checked should she have symptoms. I have p reviously offered to have her see an rig builder at a tertiary center like [facility] or [facility] or , however, she prefers to have us manage things. ? We have discussed that anxiety and stress shruti pollock play a role. Whether they are caused by her issues or help to worsen them, her problems are exacerbated by not being able to literally tolerate any medi cations. We have discussed in the past that she may well have anxiety provoked simply by trying new meds as well. Given her current stress issues, we could consider c ounseling of some type if she is willing down the road. ? She is not taking the hygroton or current progesterone. Kirit johansen did not get her tilt table test. Again, I deleon ve wondered about the possibility of POTS given her symptoms. She still has occa sional cough and wheeze but is still smoking. Given her current issues, now is not a good time to push for cessa tion. Since last here, she has made an appt to return to see Dr. Antonieta hernandez who has recently gotten a fee cortisol result back. Appears to be not completed yet. Still listed as preliminary as of 06/01 She is concerned about the findings of h er labs in that she feels her physical stress is high. She declines to do the tilt tabl e test. She has not yet taken progesterone. She wants to have additional hormone levels do ne. She also requests and acth. And dhea level. Again reiterated to her that she needs to see the endo for evaluation of her levels. She did see surgery. She is going to have endo and colonosco py in June. Component Latest Ref Rng AND Units 05/24/2019 06/05/2019 Creatinine mg/dL, Ur (UFRCRT) mg/dL 44 Creatinine mg/day, Ur (UFRCRT) 500 - 1,400 mg/d 1,452 (H) Free Cortisol ug/L, Urine ug/L 14.80 Free Cortisol ug/day, Urine <=45.0 ug/d 48.8 (H) Cortisol ug/g Market Asset Protection Manager, Ur (UFRCRT) ug/g PLASTIC BLOCK BOILER RELINER 33.64 Free Cortisol UR, Interpretation SEE NOTE TSH 0.270 - 4.200 uU/mL 2.610 MEDICATIONS: Current Outpatient Medications Medication Sig - ALPRAZolam (XANAX) 1 mg tablet Take 1 tablet by mout h three times daily as needed for up to 30 days. - sucralfate (CARAFATE) 1 gram tablet Ta ke 1 tablet by mouth four times daily. - compounded progesterone 50 mg capsule Take 1 capsule by mouth twice daily. (Patient not taking: Reported on 06/14/2019 ) - Estradiol (VIVELLE-DOT) 0. 0375 mg/24 hr Apply 1 Patch as directed two times a week. (Patient not taking: Reported on 06/14/2019 ) - fluticasone (FLOVENT) 44 mcg/actuation inhaler Inhal e 1 Puff as instructed twice daily. (Patient not taking: Reported on 06/14/2019 ) - L.acidoph-B.lactis-B.longum (FLORAJEN3) 460 mg (7.5- 6- 1.5 bill. cell) cap Take 1 capsule by mouth once daily. - lancets (FREESTYLE LANCETS) 28 gauge misc USE FOUR T IMES DAILY DIRECTED - blood sugar diagnostic (FREESTYLE TEST) test strip TEST fo ur times a day - Blood-Glucose Meter (FREESTYLE LITE METER) mon itoring kit 1 Each as needed. - Blood-Glucose Meter (FREESTYLE LITE METER) mon itoring kit 1 Each as needed. No current facility-administered medications for this visit. ALLERGIES: ALLERGIES Allergen Reactions - Codeine GI Upset, Vomiting - Percocet [Oxycodone* Vomiting - Solumedrol [Methylp* Mental Status Change Made her rageful - Vicodin [Hydrocodon* Vomiting - Combipatch [Estradi* Intolerance feels wired, muscles hurt, lips/mouth burn, feels like asthm a flaring, nausea, dizziness. - Metformin Other: See Comments Myalgias. - Pepcid [Famotidine * Other: See Comments Dry eyes, mouth, rash, itching, anxiety - Tapazole [Methimazo* Hives PAST MEDICAL HISTORY Diagnosis Date - Abdominal pain, chronic, right upper quadrant - Asthma As a baby, then I outgrew it. - Cystocele, midline 05/13/2009 - Delayed emergence from anesthesia 09/27/2014 - Depression - Excessive or frequent menstruation Heavy periods - HSDD 10/21/2011 - Hypothyroidism should be on FRANCESCO synthroid. - Irregular menstrual cycle Irregular periods - menopause age 43 2009 in 2012 FSH 47 - Moderate dysplasia of cervix 2001 - Parent-child conflict 03/07/2013 - PMH - PAST MEDICAL HISTORY OF thyroid ablation/hypothyroid - Postmenopausal HRT (hormone replacement therapy) 12/13/2015 in 2014 took femHRT cried 11/2015 offer climara/prometrium - Rectocele 05/13/2009 - SVT (supraventricular tachycardia) (HCC) - Syncope 05/14/2013 -Reported that she had one episode of syncope at the OSH. -H ad the episode when she stood up. -No urinary incontinence or jerking movements. -Never had syncope episode before. -Last Echo stress test f or her chest pain was in 2011 (normal) Plan: -Repeat the Echo: normal - The left ventricle is normal in size. Left ventricular systo lic function is normal. EF = 63 ? 5% (2D biplane) - The right ventricle is normal in size. Right joel tricular systolic function is normal. - There are no significant valvular abnormalities. - Prior echocardiogram performed on 11/10/11 (stress echo). No significant change. - Tele - Tobacco use - Weight gain PAST SURGICAL HISTORY Procedure Laterality Date - CERVIX UTERI CONIZA LP ELCTRO EXCI 2001 LEEP-Cervix - COLONOSCOPY 04/2017 says nl - EGD W/O OR W/BRUSH/WASH 01/22/2014,2009 EGD - LAPAROSCOPIC CHOLEYCYSTECTOMY 05/19/2011 - LIGATE FALLOPIAN TUBE 2003 Tubal ligation - PAST SURGICAL HISTORY OF 1998 tubal - PAST SURGICAL HISTORY OF 2001 thyroid ablation - REMOVAL OF OVARY(S) 09/2014 laparoscopic left, CW, umbilical/upper abdominal adhesions s een benign FAMILY HISTORY Problem Relation Age of Onset - Diabetes Mother Type 2 stroke - Colon Cancer Father age 64 [place] - Diabetes Father Type 2 - Hypertension Father - Coronary Artery Disease Father Hx of [place] - Thyroid Sister hx of parathyroid disease/ hx of fibroids - other (healthy) Brother - other (healthy) Brother - Allergies Daughter - other (healthy) Daughter - other (healthy) Son - other (healthy) Son - other (healthy) Son - other (healthy) Son - Colon Cancer Paternal Aunt x5 - Colon Cancer Paternal Uncle x8 Social History Tobacco Use - Smoking status: Current Every Day Smoker Packs/day: 0.50 Types: Cigarettes Start date: 1985 - Smokeless tobacco: Never Used - Tobacco comment: Has quit intermittently, And I'm working on it now. 1st AM cigarette 10-15 minutes after awake. Most desire d is that one, or last of day before bed. Prior 8 month quits, resumed after pregnancies c ompleted. TO Substance Use Topics - Alcohol use: No - Drug use: No Reviewed current medications, allergies, past medical histor y, surgical history, family history and social history today. REVIEW OF SYSTEMS All other reviewed and negative other than HPI. HEALTH MAINTENANCE: VITALS: BP 136/84 Pulse 115 Wt 91.6 kg (202 lb) LMP 03/10/2010 SpO2 98% BMI 36.95 kg/m? Last 4 Encounter Wt Readings: Date: Wt: 06/14/2019 91.6 kg (202 lb) 05/24/2019 90.3 kg (199 lb) 05/12/2019 89.8 kg (198 lb) 05/05/2019 89.8 kg (198 lb) PHYSICAL EXAMINATION: General appearance: Well abi earing, alert, in no acute distress, well-hydrated, well nourished. Skin: Skin color, texture, turgor normal, no suspicious rash es or lesions Head: Normocephalic, no masses, lesions, tenderness or abnor malitie Lungs: lungs clear to auscultation. No wheezing, rhonchi, ra les Heart: RRR without murmur, gallop, or rubs. No ectopy Abdomen: Normal abdominal exam, Abdomen soft, non-tender. Bowel sounds normal. No masses, organomegaly Extremities: No deformities, edema, skin discolo ration, clubbing or cyanosis. Good capillary refill. Musculoskeletal: No joint swelling, deformity, or tenderness Peripheral pulses: Normal Neuro: Negative. ASSESSMENT/PLAN: 1. Hormone disturbance - ICD9: 259.9, ICD10: E34.9 (primary diagnosis) - check labs. Reinforced anand ackerman to see endo and stick with one who is comfortable working with her hormonal issues. Her complaints remain her same chronic issues. Discussed that I am limited as a pcp with my comfort level with treating her current issues at this point. Update me after h er endo appt. - DHEA-S BLD - VITAMIN D 25 HYDROXY - PROGESTERONE BLD 2. Postablative hypothyroidism - ICD9: 244.1, ICD10: E89.0 - SYNTHROID 137 MCG TABLET Hugo Nava MD Referring Provider: SELF [200] Allergies As of Date: 06/14/2019 Noted Allergy Reaction CODEINE 09/27/2014 8 - GI Upset 11 - Vomiting PERCOCET (OXYCODONE-ACETAMINOPHEN)07/17/2011 11 - Vomiting SOLUMEDROL (METHYLPREDNISOLONE SO*01/22/2014 1 - Mental Stat us Change Comments: Made her rageful VICODIN (HYDROCODONE-ACETAMINOPHE*07/17/2011 11 - Vomiting COMBIPATCH (ESTRADIOL-NORETHINDRO*10/26/2016 5 - Intolerance Comments: feels wired, muscles hurt, lips/mouth burn, feels like asthma flaring, nausea, dizziness. METFORMIN 10/28/2017 14 - Other: See Comments Comments: Myalgias. PEPCID (FAMOTIDINE (PF)) 07/07/2016 14 - Other: See Comments Comments: Dry eyes, mouth, rash, itching, anxiety TAPAZOLE (METHIMAZOLE) 10/14/2005 4 - Hives Date Reviewed: 05/24/2019 Reviewed by: Sudha Pink LPN - Fully Assessed Reason for Visit: Pain [78] Primary Visit Diagnosis:Hormone disturbance [E34.9] Other Visit Diagnosis:Postablative hypothyroidism [E89.0] Order(s):SYNTHROID 137 mcg tabletTake 1 tablet by mouth on ce daily.Disp: 30 tabletRfl: 5 DHEA-S BLD [SQDHEAS] Order #: [id number] FUTURE VITAMIN D 25 HYDROXY [SQVITD] Order #: [id number] FUTURE PROGESTERONE BLD [SQPROG] Order #: [id number] FUTURE Prescriptions as of 06/14/2019 Sig: SYNTHROID 137 MCG TABLET Take 1 tablet by mouth once d* ALPRAZOLAM 1 MG TABLET Take 1 tablet by mouth three * X SYNTHROID 137 MCG TABLET Take 1 tablet by mouth once d* SUCRALFATE 1 GRAM TABLET Take 1 tablet by mouth four t* CPD PROGESTERONE 50 MG CAPSULE Take 1 capsule by mouth twice * Patient not taking: Reported on 06/14/2019 ESTRADIOL 0.0375 MG/24 HR MANJU* Apply 1 Patch as directed two * Patient not taking: Reported on 06/14/2019 FLUTICASONE PROPIONATE 44 MCG* Inhale 1 Puff as instructed t * Patient not taking: Reported on 06/14/2019 FLORAJEN3 460 MG (7.5-6-1.5 B* Take 1 capsule by mouth once * LANCETS 28 GAUGE USE FOUR TIMES DAILY DIREC* BLOOD SUGAR DIAGNOSTIC STRIPS TEST four times a day BLOOD-GLUCOSE METER KIT 1 Each as needed. BLOOD-GLUCOSE METER KIT 1 Each as needed. Problem List As Of Date 06/14/2019 Noted Resolved Postablative hypothyroidism [E89.0] 04/06/2006 More... Excessive or frequent menstruation [N92.0] 01/05/20072011 Irregular menstrual cycle [N92.6] 01/05/2007 10/06/2011 Unspecified aftercare [Z51.89] 05/26/2011 10/06/2011 Abdominal pain, chronic, right upper quadrant [* 10/06/2011 Post-menopause [Z78.0] 10/21/2011 03/18/2015 More... URI (upper respiratory infection) [J06.9] 05/14/2013 015 More... Pneumonia [J18.9] 05/14/2013 07/11/2014 More... More... More... More... More... Adrenal disorder [E27.9] 05/24/2013 07/11/2014 hx of low vitamin D [E55.9] 06/01/2013 Panic disorder with agoraphobia [F40.01] 07/10/2013 Chronic fatigue fibromyalgia syndrome [R53.82, *07/12/2013 Marital conflict [Z63.0] 08/30/2013 07/11/2014 Blood pressure elevated without history of HTN *09/06/2014 Impaired glucose tolerance [R73.02] 09/06/2014 More... Ovarian cyst [N83.209] 09/24/2014 03/18/2015 SVT (supraventricular tachycardia) (HCC) [I47.1]09/27/2014 Delayed emergence from anesthesia [T88.59XA] 09/27/201409/25 On home oxygen therapy [Z99.81] 09/27/2014 12/13/2015 PTSD (post-traumatic stress disorder) [F43.10] 11/01/2014 Attention deficit hyperactivity disorder (ADHD)*11/08/2014 Recurrent major depressive disorder, in partial*07/09/2015 Encounter for screening mammogram for malignant*12/12/2015 0 11/09/2016 menopause age 43 [N95.1] Tobacco use [Z72.0] Postmenopausal HRT (hormone replacement therapy*12/13/2015 0 11/09/2016 Weight gain [R63.5] 10/19/2017 GERD without esophagitis [K21.9] 05/12/2017 More... Simple chronic bronchitis (HCC) [J41.0] 12/01/2017 More... Irritable bowel syndrome with diarrhea [K58.0] 12/14/2017 Systemic lupus erythematosus (HCC) [M32.9] 02/14/2018 Burning sensation of mouth [R20.8] 02/16/2018 Burning sensation of skin [R20.8] 02/16/2018 Sleep difficulties [G47.9] 02/16/2018 Mitral valve prolapse [I34.1] 02/23/2018 More... Screening for malignant neoplasm of the cervix *06/20/2018 Visit for pelvic exam [Z01.419] 06/20/2018 Encounter for screening mammogram for malignant*06/20/2018 Estrogen deficiency [E28.39] 06/20/2018 Adrenal adenoma, left [D35.02] 08/25/2018 More... Visit Notes: >> Jazlyn Garcia Ma WedJun 14, 2019 1:16 PM Status: Signed PAIN: Pt c/o pain in abdomen that radiates down legs. Feels like menstrual cramps. Has tender breasts. Tension headache. Racing heart. Has tremors in hands. Prescriptions ordered this encounter Disp Refills Start End SYNTHROID 137 MCG TABLET 30 t* 5 06/14/2019 06/13/2020 Class: Med Update Route: ORAL Sig: Take 1 tablet by mouth once daily. Follow-up and Disposition History Recorded Encounter Status:Closed by HUGO NAVA MD on 06/14/19 tsh on 2019-06-05 TSH Qn 2.610 0.270-4.200 uU/mL Normal 06-05-2019 [facility] ([id number]) Comment: Performed By: #### DHEAS, TD, PROG, E2 #### [facility] [address] [place] [phone] #### EST #### [facility] [address] [place] [address] -05-401 period and volume o n 2019-05-25 Period 24 hr Normal 05-25-2019 [facility] ([id number]) Comment: Performed By: #### DHEAS, TD, PROG, E2 #### [facility] [address] [place] [phone] #### EST #### [facility] [address] [place] [address]474 Volume 3300 mL Normal 05-25-2019 [facility] ([id number]) Comment: Performed By: #### DHEAS, TD, PROG, E2 #### [facility] [address] [place] [phone] #### EST #### [facility] [address] [place] [address] -992 creatinine,urine,24h on 2019-05-25 Creatinine,Urine,24h 1.452 0.8-1.8 g/24 hr Normal 0 [facility] ([id number]) Comment: Performed By: #### DHEAS, TD, PROG, E2 #### [facility] [address] [place] [phone] #### EST #### [facility] [address] [place] [address] -[phone] progress on 2019-04 PROGRESS HNO ID: [id number] Normal 05-24-2019 [facility] Author: Hugo Dixon ([id number]) Service: ? Author Type: Physician Type: Progress Notes Filed: 05/24/2019 5:24 PM Note Text: Patient presents with: Dizziness HPI: Patient presents today for office visit for follow up. She did finally get her vivelle-dot since insurance was [employer]. She has not started it yet due to stresses at home. Her daughter had a tubal and her aunt is dying in [facility]. She requests a r efill of xanax to get through the next few weeks. Checked oarrs. She is gelacio re of risks of meds. Since here last has seen gi and obstetrics and gynecology professor. Wanted to have scopes p erformed by Dr. Hernandez. She states she will be getting these done. Antione wheat, has been intolerant of any class of gi meds. She still has an extensive list of symptoms including skin b urning, reflux. Fatigue, dizziness, abdominal fullness. Again, she has seen an extensive number of specialists toyin smith from endo, gi, surgery, pulmonary, cardiology, obstetrics and gynecology professor, rheumatology, funct ional medicine, neurology, etc. She has had extensive testing. The one consistent thing is that when she can tolerate hormones, she feels relatively normal. 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 We have had extensive discussions a bout avoiding unopposed estrogen. She has issues with swelling and tolerat ing progesterone. Is willing to try a lower compounded dose bid to see if that would help. She has done extensive reading and asks about si mply checking serial pelvic ultrasounds or using topical vaginal progester one, neither of which I explained I would be comfortable doing as a famil y practicioner. I have spoken with her previously and today ab out seeing a hormonal specialist again. I even suggested that she could s ee a holistic physician if she would desires since we have thus far not be en able to find a solution for her. She prefers to have us do it realiz ing that we are not a specialist in this area. I reinforced that she nee ds to have regular mammograms if she is to receive hormones. In additio n, she is aware of the various risks, also being a smoker. She also as ks to have a standing order for hormone levels to be checked should she h ave symptoms. I have previously offered to have her see an rig builder at a tertiary center like [facility] or [facility] or , however, she prefers t o have us manage things. We have discussed that anxiety and stress certainly play a r ole. Whether they are caused by her issues or help to worsen them, her pr oblems are exacerbated by not being able to literally tolerate any medi cations. We have discussed in the past that she may well have anxiety pr ovoked simply by trying new meds as well. Given her current stress issues, we could consider counseling of some type if she is willing down the road. She is not taking the hygroton or current progesterone. She did not get her tilt table test. Again, I have wondered about the possib ility of POTS given her symptoms. She still has occasional cough and wheez e but is still smoking. Given her current issues, now is not a good time to push for cessation. MEDICATIONS: Current Outpatient Medications Medication Sig - SYNTHROID 137 mcg tablet Take 1 tablet by mouth once daily . - chlorthalidone (HYGROTON) 25 mg tablet Take 1 tablet by [facility] once daily as needed. - Estradiol (VIVELLE-DOT) 0.0375 mg/24 hr Apply 1 Patch as d irected two times a week. - sucralfate (CARAFATE) 1 gram tablet Take 1 tablet by mouth four times daily. - fluticasone (FLOVENT) 44 mcg/actuation inhaler Inhale 1 Pu ff as instructed twice daily. - hyoscyamine sublingual (LEVSIN SL) 0.125 mg subl Take 1 ta blet by mouth every 4 hours as needed (FOR CRAMPING). - L.acidoph-B.lactis-B.longum (FLORAJEN3) 460 mg (7.5-6- 1.5 bill. cell) cap Take 1 capsule by mouth once daily. - progesterone micronized (PROMETRIUM) 100 mg capsule Take 1 capsule by mouth every other day. TAKE WITH FOOD. (Patient not taking: Reported on 03/31/2019 ) - lancets (FREESTYLE LANCETS) 28 gauge misc USE FOUR TIMES D AILY DIRECTED - blood sugar diagnostic (FREESTYLE TEST) test strip TEST fo ur times a day - Blood-Glucose Meter (FREESTYLE LITE METER) monitoring kit 1 Each as needed. - Blood-Glucose Meter (FREESTYLE LITE METER) monitoring kit 1 Each as needed. No current facility-administered medications for this visit. ALLERGIES: ALLERGIES Allergen Reactions - Codeine GI Upset, Vomiting - Percocet [Oxycodone* Vomiting - Solumedrol [Methylp* Mental Status Change Made her rageful - Vicodin [Hydrocodon* Vomiting - Combipatch [Estradi* Intolerance feels wired, muscles hurt, lips/mouth burn, feels like asthm a flaring, nausea, dizziness. - Metformin Other: See Comments Myalgias. - Pepcid [Famotidine * Other: See Comments Dry eyes, mouth, rash, itching, anxiety - Tapazole [Methimazo* Hives PAST MEDICAL HISTORY Diagnosis Date - Abdominal pain, chronic, right upper quadrant - Asthma As a baby, then I outgrew it. - Cystocele, midline 05/13/2009 - Delayed emergence from anesthesia 09/27/2014 - Depression - Excessive or frequent menstruation Heavy periods - HSDD 10/21/2011 - Hypothyroidism should be on FRANCESCO synthroid. - Irregular menstrual cycle Irregular periods - menopause age 43 2009 in 2012 FSH 47 - Moderate dysplasia of cervix 2001 - Parent-child conflict 03/07/2013 - PMH - PAST MEDICAL HISTORY OF thyroid ablation/hypothyroid - Postmenopausal HRT (hormone replacement therapy) 12/13/2015 in 2014 took femHRT cried 11/2015 offer climara/prometrium - Rectocele 05/13/2009 - SVT (supraventricular tachycardia) (HCC) - Syncope 05/14/2013 -Reported that she had one episode of syncope at the OSH. -H ad the episode when she stood up. -No urinary incontinence or jerki ng movements. -Never had syncope episode before. -Last Echo stress test fo r her chest pain was in 2011 (normal) Plan: -Repeat the Echo: normal - T he left ventricle is normal in size. Left ventricular systolic funct ion is normal. EF = 63 ? 5% (2D biplane) - The right ventricle is normal in size. Right ventricular systolic function is normal. - There are no sign ificant valvular abnormalities. - Prior echocardiogram performed on 11/10/11 (stress echo). No significant change. - Tele - Tobacco use - Weight gain PAST SURGICAL HISTORY Procedure Laterality Date - CERVIX UTERI CONIZA LP ELCTRO EXCI 2001 LEEP-Cervix - COLONOSCOPY 04/2017 says nl - EGD W/O OR W/BRUSH/WASH 01/22/2014,2009 EGD - LAPAROSCOPIC CHOLEYCYSTECTOMY 05/19/2011 - LIGATE FALLOPIAN TUBE 2003 Tubal ligation - PAST SURGICAL HISTORY OF 1998 tubal - PAST SURGICAL HISTORY OF 2001 thyroid ablation - REMOVAL OF OVARY(S) 09/2014 laparoscopic left, CW, umbilical/upper abdominal adhesions s een benign FAMILY HISTORY Problem Relation Age of Onset - Diabetes Mother Type 2 stroke - Colon Cancer Father age 64 [place] - Diabetes Father Type 2 - Hypertension Father - Coronary Artery Disease Father Hx of [place] - Thyroid Sister hx of parathyroid disease/ hx of fibroids - other (healthy) Brother - other (healthy) Brother - Allergies Daughter - other (healthy) Daughter - other (healthy) Son - other (healthy) Son - other (healthy) Son - other (healthy) Son - Colon Cancer Paternal Aunt x5 - Colon Cancer Paternal Uncle x8 Social History Tobacco Use - Smoking status: Current Every Day Smoker Packs/day: 0.50 Types: Cigarettes Start date: 1985 - Smokeless tobacco: Never Used - Tobacco comment: Has quit intermittently, And I'm working on it now. 1st AM cigarette 10-15 minutes after awake. Most desired is that one, or last of day before bed. Prior 8 month quits, resumed after p regnancies completed. TO Substance Use Topics - Alcohol use: No - Drug use: No Reviewed current medications, allergies, past medical histor y, surgical history, family history and social history today. REVIEW OF SYSTEMS All other reviewed and negative other than HPI. HEALTH MAINTENANCE: Reviewed health maintenance issues today and recommended the following in detail. MAMMOGRAM EVERY 2 YEARS-reinforced need to do mammogram VITALS: BP 142/82 Pulse 96 Wt 90.3 kg (199 lb) LMP 03/10/2010 BMI 36.40 kg/m? Last 4 Encounter Wt Readings: Date: Wt: 05/24/2019 90.3 kg (199 lb) 05/12/2019 89.8 kg (198 lb) 05/05/2019 89.8 kg (198 lb) 05/02/2019 90.3 kg (199 lb) PHYSICAL EXAMINATION: General appearance: Well appearing, alert, in no acute distr ess, well-hydrated, well nourished. Skin: Skin color, texture, turgor normal, no suspicious rash es or lesions Head: Normocephalic, no masses, lesions, tenderness or abnor malities Lungs: unlabored on room air coarse breath sounds bilaterall y. Heart: RRR without murmur, gallop, or rubs. No ectopy Abdomen: Normal abdominal exam, Abdomen soft, non-tender. Otoniel wel sounds normal. No masses, organomegaly Extremities: No deformities, edema, skin discoloration, club kimber or cyanosis. Good capillary refill. Musculoskeletal: No joint swelling, deformity, or tenderness Peripheral pulses: Normal Neuro: Negative. ASSESSMENT/PLAN: 1. Postablative hypothyroidism - ICD9: 244.1, ICD10: E89.0 ( primary diagnosis) - continue meds. 2. Hormone disturbance - ICD9: 259.9, ICD10: E34.9 - when she if ready, can retry combined estrogen and progest erone. Can check her hormone with standing orders. Recheck in one month . If continues to have issues, again will attempt to have her see a hormone specialists. She is aware that complicated hormone treatment is not withi n my scope of practice. She is fully aware of risks of medications. - CPD PROGESTERONE 50 MG CAPSULE - ESTRADIOL-17B BLD - ESTRONE BLD - TESTOSTERONE, FREE AND TOTAL 3. Anxiety - ICD9: 300.00, ICD10: F41.9 - continue prn. - ALPRAZOLAM 1 MG TABLET 4. Systemic lupus erythematosus, unspecified SLE type, unspe cified organ involvement status (HCC) - ICD9: 710.0, ICD10: M32.9 - currently not treating. Has seen several rheumatologists. Some have felt she might have. Others felt it was fibromyaligas. 5. Irritable bowel syndrome with diarrhea - ICD9: 564.1, ICD 10: K58.0 - get endoscopy 6. GERD without esophagitis - ICD9: 530.81, ICD10: K21.9 - Get endoscopy. 7. Adrenal adenoma, left - ICD9: 227.0, ICD10: D35.02 -Small 1.4 cm nodule not noted on previous ct(06/14)-seen [facility] ct-08/25/18, repeat ct in 04/13 adrenal described as normal. Extensive review shows she had a 1.4 cm adrenal thickening i ntermittently noted dating back to at least 2012. Has seen endo and neuroe ndo surg for the same. Would not rework up unless changes. Hugo Nava MD cnov on 2019-05-24 CNOV Office Visit (FAMPWS) Normal 05-24-19 [address] [place] JAZLYN Jones ([id number]) 1965 [place] Date Time Provider Department ([id number]) 05/24/19 3:20 PM HUGO NAVA During your visit today, we recorded the following informati on about you: Pulse Blood pressure Weight 96/minute 142/82 90.3 kg Sudha Pink SUPERVISOR TELEVISION CHASSIS REPAIR 05/24/2019 3:36 PM Signed For about 4-5 days has been lightheaded. Has been having itc rigoberto all over notices more at night. Feels like electr ic shock feeling all over body. In the middle of collecting 24 hour urine sample currently. Hugo Nava MD 05/24/2019 5:24 PM Signed Patient presents with: Dizziness HPI: Patient presents today for office visit for follow up. She did finally get her [employer] insurance was being diffult. She has not started it yet due to stresses at [facility]. Her daughter had a tubal and her aunt is dying in [facility]. She requests a refill of xanax to get through the next few weeks. Checked oarrs. She is aware of risks of meds. Since here last has seen gi and obstetrics and gynecology professor. Wanted to have scopes performed by Dr. Hernandez. She states she will be getting these done. Again, has been intolerant of any class of gi meds. She still has an extensive list of symptoms including skin burning, reflux. Fatigue, dizziness, abdominal fullness. Again, she has seen an extensive number of speci alists ranging from endo, gi, surgery, pulmonary, cardiology, obstetrics and gynecology professor, rheumatology, functiona l medicine, neurology, etc. She has had extensive testing. The one consistent thing is that when she can tolerate hormones, she feels relatively normal. The difficult thing is that she has been unable to tolerate much long wall mining machine tender . We have had extensive discussions about avoiding unopposed estroge n. She has issues with swelling and tolerating prog esterone. Is willing to try a lower compounded dose bid to see if that would help. She has done extensive reading and asks about simply checking serial pelvic ultrasounds or using topical v aginal progesterone, neither of which I explained I would be comfortable doing as a family practicioner. I have spoken with her previously and today about seeing a hormonal specialist again. I even suggested that she could s ee a holistic physician if she would desires since we have elizabeth s far not been able to find a solution for her. She prefers to have us do it realizing dionicio t we are not a specialist in this area. I r einforced that she needs to have regular mammograms if she is to receive hormones. In additi on, she is aware of the various risks, also being a smoker. She also asks to deleon ve a standing order for hormone levels to be checked should she have symptoms. I have p reviously offered to have her see an rig builder at a tertiary center like [facility] or [facility] or , however, she prefers to have us manage things. We have discussed that anxiety and stress certai nly play a role. Whether they are caused by her issues or help to worsen them, her problems are exacerbated by not being able to literally tolerate any medi cations. We have discussed in the past that she may well have anxiety provoked simply by trying new meds as well. Given her current stress issues, we could consider c ounseling of some type if she is willing down the road. She is not taking the hygroton or current progesterone. Kirit johansen did not get her tilt table test. Again, I deleon ve wondered about the possibility of POTS given her symptoms. She still has occa sional cough and wheeze but is still smoking. Given her current issues, now is not a good time to push for cessa tion. MEDICATIONS: Current Outpatient Medications Medication Sig - SYNTHROID 137 mcg tablet Take 1 tablet by mouth once daily . - chlorthalidone (HYGROTON) 25 mg tablet Take 1 tablet by mouth once daily as needed. - Estradiol (VIVELLE-DOT) 0. 0375 mg/24 hr Apply 1 Patch as directed two times a week. - sucralfate (CARAFATE) 1 gram tablet Ta ke 1 tablet by mouth four times daily. - fluticasone (FLOVENT) 44 mcg/actuation inhaler Inhal e 1 Puff as instructed twice daily. - hyoscyamine sublingual (LE VSIN SL) 0.125 mg subl Take 1 tablet by mouth every 4 hours as needed (FOR CRAMPING). - L.acidoph-B.lactis-B.longum (FLORAJEN3) 460 mg (7.5- 6- 1.5 bill. cell) cap Take 1 capsule by mouth once daily. - progesterone micronized (PROMETRIUM) 100 mg ca psule Take 1 capsule by mouth every other day. TAKE WITH FOOD. (Patient not taking: Repo rted on 03/31/2019 ) - lancets (FREESTYLE LANCETS) 28 gauge misc USE FOUR T IMES DAILY DIRECTED - blood sugar diagnostic (FREESTYLE TEST) test strip TEST fo ur times a day - Blood-Glucose Meter (FREESTYLE LITE METER) mon itoring kit 1 Each as needed. - Blood-Glucose Meter (FREESTYLE LITE METER) mon itoring kit 1 Each as needed. No current facility-administered medications for this visit. ALLERGIES: ALLERGIES Allergen Reactions - Codeine GI Upset, Vomiting - Percocet [Oxycodone* Vomiting - Solumedrol [Methylp* Mental Status Change Made her rageful - Vicodin [Hydrocodon* Vomiting - Combipatch [Estradi* Intolerance feels wired, muscles hurt, lips/mouth burn, feels like asthm a flaring, nausea, dizziness. - Metformin Other: See Comments Myalgias. - Pepcid [Famotidine * Other: See Comments Dry eyes, mouth, rash, itching, anxiety - Tapazole [Methimazo* Hives PAST MEDICAL HISTORY Diagnosis Date - Abdominal pain, chronic, right upper quadrant - Asthma As a baby, then I outgrew it. - Cystocele, midline 05/13/2009 - Delayed emergence from anesthesia 09/27/2014 - Depression - Excessive or frequent menstruation Heavy periods - HSDD 10/21/2011 - Hypothyroidism should be on FRANCESCO synthroid. - Irregular menstrual cycle Irregular periods - menopause age 43 2009 in 2012 FSH 47 - Moderate dysplasia of cervix 2001 - Parent-child conflict 03/07/2013 - PMH - PAST MEDICAL HISTORY OF thyroid ablation/hypothyroid - Postmenopausal HRT (hormone replacement therapy) 12/13/2015 in 2014 took femHRT cried 11/2015 offer climara/prometrium - Rectocele 05/13/2009 - SVT (supraventricular tachycardia) (HCC) - Syncope 05/14/2013 -Reported that she had one episode of syncope at the OSH. -H ad the episode when she stood up. -No urinary incontinence or jerking movements. -Never had syncope episode before. -Last Echo stress test f or her chest pain was in 2011 (normal) Plan: -Repeat the Echo: normal - The left ventricle is normal in size. Left ventricular systo lic function is normal. EF = 63 ? 5% (2D biplane) - The right ventricle is normal in size. Right joel tricular systolic function is normal. - There are no significant valvular abnormalities. - Prior echocardiogram performed on 11/10/11 (stress echo). No significant change. - Tele - Tobacco use - Weight gain PAST SURGICAL HISTORY Procedure Laterality Date - CERVIX UTERI CONIZA LP ELCTRO EXCI 2001 LEEP-Cervix - COLONOSCOPY 04/2017 says nl - EGD W/O OR W/BRUSH/WASH 01/22/2014,2009 EGD - LAPAROSCOPIC CHOLEYCYSTECTOMY 05/19/2011 - LIGATE FALLOPIAN TUBE 2003 Tubal ligation - PAST SURGICAL HISTORY OF 1998 tubal - PAST SURGICAL HISTORY OF 2001 thyroid ablation - REMOVAL OF OVARY(S) 09/2014 laparoscopic left, CW, umbilical/upper abdominal adhesions s een benign FAMILY HISTORY Problem Relation Age of Onset - Diabetes Mother Type 2 stroke - Colon Cancer Father age 64 [place] - Diabetes Father Type 2 - Hypertension Father - Coronary Artery Disease Father Hx of [place] - Thyroid Sister hx of parathyroid disease/ hx of fibroids - other (healthy) Brother - other (healthy) Brother - Allergies Daughter - other (healthy) Daughter - other (healthy) Son - other (healthy) Son - other (healthy) Son - other (healthy) Son - Colon Cancer Paternal Aunt x5 - Colon Cancer Paternal Uncle x8 Social History Tobacco Use - Smoking status: Current Every Day Smoker Packs/day: 0.50 Types: Cigarettes Start date: 1985 - Smokeless tobacco: Never Used - Tobacco comment: Has quit intermittently, And I'm working on it now. 1st AM cigarette 10-15 minutes after awake. Most desire d is that one, or last of day before bed. Prior 8 month quits, resumed after pregnancies c ompleted. TO Substance Use Topics - Alcohol use: No - Drug use: No Reviewed current medications, allergies, past medical histor y, surgical history, family history and social history today. REVIEW OF SYSTEMS All other reviewed and negative other than HPI. HEALTH MAINTENANCE: Reviewed health maintenance issues today and recommended the following in detail. MAMMOGRAM EVERY 2 YEARS-reinforced need to do mammogram VITALS: BP 142/82 Pulse 96 Wt 90.3 kg (199 lb) LMP 03/10/2010 BMI 36.40 kg/m? Last 4 Encounter Wt Readings: Date: Wt: 05/24/2019 90.3 kg (199 lb) 05/12/2019 89.8 kg (198 lb) 05/05/2019 89.8 kg (198 lb) 05/02/2019 90.3 kg (199 lb) PHYSICAL EXAMINATION: General appearance: Well abi earing, alert, in no acute distress, well-hydrated, well nourished. Skin: Skin color, texture, turgor normal, no suspicious rash es or lesions Head: Normocephalic, no masses, lesions, tenderness or abnor malities Lungs: unlabored on room air coarse breath sounds bilaterall y. Heart: RRR without murmur, gallop, or rubs. No ectopy Abdomen: Normal abdominal exam, Abdomen soft, non-tender. Bowel sounds normal. No masses, organomegaly Extremities: No deformities, edema, skin discolo ration, clubbing or cyanosis. Good capillary refill. Musculoskeletal: No joint swelling, deformity, or tenderness Peripheral pulses: Normal Neuro: Negative. ASSESSMENT/PLAN: 1. Postablative hypothyroidism - ICD9: 2 44.1, ICD10: E89.0 (primary diagnosis) - continue meds. 2. Hormone disturbance - ICD9: 259.9, ICD10: E34.9 - when she if ready, can retry combined estrogen and p rogesterone. Can check her hormone with standing orders. Recheck in one month . If continues to have issues, again will attempt to have her s ee a hormone specialists. She is aware that complicated hormone treatment is not within my scope of practice. She is fully aware of risks of medications. - CPD PROGESTERONE 50 MG CAPSULE - ESTRADIOL-17B BLD - ESTRONE BLD - TESTOSTERONE, FREE AND TOTAL 3. Anxiety - ICD9: 300.00, ICD10: F41.9 - continue prn. - ALPRAZOLAM 1 MG TABLET 4. Systemic lupus erythematosus, unspecified SLE type, unspe cified organ involvement status (HCC) - ICD9: 710.0, ICD10: M32.9 - currently not treating. Has seen pilar al rheumatologists. Some have felt she might have. Others felt it was fibromyaligas. 5. Irritable bowel syndrome with diarrhea - ICD9: 564.1, ICD 10: K58.0 - get endoscopy 6. GERD without esophagitis - ICD9: 530.81, ICD10: K21.9 - Get endoscopy. 7. Adrenal adenoma, left - ICD9: 227.0, ICD10: D35.02 -Small 1.4 cm nodule not noted on previous ct(06/14)-se en [facility] ER ct-08/25/18, repeat ct in 04/13 adrenal described as normal. Extensive review shows she h ad a 1.4 cm adrenal thickening intermittently noted dating back to at least 2012. Has seen endo and neuroe ndo surg for the same. Would not rework up unless changes. Hugo Nava MD Referring Provider: SELF [200] Allergies As of Date: 05/24/2019 Noted Allergy Reaction CODEINE 09/27/2014 8 - GI Upset 11 - Vomiting PERCOCET (OXYCODONE-ACETAMINOPHEN)07/17/2011 11 - Vomiting SOLUMEDROL (METHYLPREDNISOLONE SO*01/22/2014 1 - Mental Stat us Change Comments: Made her rageful VICODIN (HYDROCODONE-ACETAMINOPHE*07/17/2011 11 - Vomiting COMBIPATCH (ESTRADIOL-NORETHINDRO*10/26/2016 5 - Intolerance Comments: feels wired, muscles hurt, lips/mouth burn, feels like asthma flaring, nausea, dizziness. METFORMIN 10/28/2017 14 - Other: See Comments Comments: Myalgias. PEPCID (FAMOTIDINE (PF)) 07/07/2016 14 - Other: See Comments Comments: Dry eyes, mouth, rash, itching, anxiety TAPAZOLE (METHIMAZOLE) 10/14/2005 4 - Hives Date Reviewed: 05/24/2019 Reviewed by: Sudha Pink LPN - Fully Assessed Reason for Visit: Dizziness [36] Primary Visit Diagnosis:Postablative hypothyroidism [E89.0] Other Visit Diagnoses:Hormone disturbance [E34.9] Anxiety [F41.9] Systemic lupus erythematosus, unspecified SLE type, unspecified organ involvement status (HCC) [M32.9] Irritable bowel syndrome with diarrhea [K58.0] GERD without esophagitis [K21.9] Adrenal adenoma, left [D35.02] Order(s):compounded progesterone 50 mg capsuleTake 1 capsu le by mouth twice daily.Disp: 60 capsuleRfl: 2 ESTRADIOL-17B BLD [SQE2] Order #: [id number] STANDING ESTRONE BLD [SQEST] Order #: [id number] STANDING TESTOSTERONE, FREE AND TOTAL [SQFTESTO] Order #: [id number] STANDING ALPRAZolam (XANAX) 1 mg tabletTake 1 tablet by mouth three t imes daily as needed for up to 30 days.Disp: 20 tabletRfl: 0 Prescriptions as of 05/24/2019 Sig: CPD PROGESTERONE 50 MG CAPSULE Take 1 capsule by mouth twice * ALPRAZOLAM 1 MG TABLET Take 1 tablet by mouth three * ESTRADIOL 0.0375 MG/24 HR MANJU* Apply 1 Patch as directed two * SUCRALFATE 1 GRAM TABLET Take 1 tablet by mouth four t* FLUTICASONE PROPIONATE 44 MCG* Inhale 1 Puff as instructed t * FLORAJEN3 460 MG (7.5-6-1.5 B* Take 1 capsule by mouth once * LANCETS 28 GAUGE USE FOUR TIMES DAILY DIREC* BLOOD SUGAR DIAGNOSTIC STRIPS TEST four times a day BLOOD-GLUCOSE METER KIT 1 Each as needed. BLOOD-GLUCOSE METER KIT 1 Each as needed. Problem List As Of Date 05/24/2019 Noted Resolved Postablative hypothyroidism [E89.0] 04/06/2006 More... Excessive or frequent menstruation [N92.0] 01/05/20072011 Irregular menstrual cycle [N92.6] 01/05/2007 10/06/2011 Unspecified aftercare [Z51.89] 05/26/2011 10/06/2011 Abdominal pain, chronic, right upper quadrant [* 10/06/2011 Post-menopause [Z78.0] 10/21/2011 03/18/2015 More... URI (upper respiratory infection) [J06.9] 05/14/2013 015 More... Pneumonia [J18.9] 05/14/2013 07/11/2014 More... More... More... More... More... Adrenal disorder [E27.9] 05/24/2013 07/11/2014 hx of low vitamin D [E55.9] 06/01/2013 Panic disorder with agoraphobia [F40.01] 07/10/2013 Chronic fatigue fibromyalgia syndrome [R53.82, *07/12/2013 Marital conflict [Z63.0] 08/30/2013 07/11/2014 Blood pressure elevated without history of HTN *09/06/2014 Impaired glucose tolerance [R73.02] 09/06/2014 More... Ovarian cyst [N83.209] 09/24/2014 03/18/2015 SVT (supraventricular tachycardia) (HCC) [I47.1]09/27/2014 Delayed emergence from anesthesia [T88.59XA] 09/27/201409/25 On home oxygen therapy [Z99.81] 09/27/2014 12/13/2015 PTSD (post-traumatic stress disorder) [F43.10] 11/01/2014 Attention deficit hyperactivity disorder (ADHD)*11/08/2014 Recurrent major depressive disorder, in partial*07/09/2015 Encounter for screening mammogram for malignant*12/12/2015 0 11/09/2016 menopause age 43 [N95.1] Tobacco use [Z72.0] Postmenopausal HRT (hormone replacement therapy*12/13/2015 0 11/09/2016 Weight gain [R63.5] 10/19/2017 GERD without esophagitis [K21.9] 05/12/2017 More... Simple chronic bronchitis (HCC) [J41.0] 12/01/2017 More... Irritable bowel syndrome with diarrhea [K58.0] 12/14/2017 Systemic lupus erythematosus (HCC) [M32.9] 02/14/2018 Burning sensation of mouth [R20.8] 02/16/2018 Burning sensation of skin [R20.8] 02/16/2018 Sleep difficulties [G47.9] 02/16/2018 Mitral valve prolapse [I34.1] 02/23/2018 More... Screening for malignant neoplasm of the cervix *06/20/2018 Visit for pelvic exam [Z01.419] 06/20/2018 Encounter for screening mammogram for malignant*06/20/2018 Estrogen deficiency [E28.39] 06/20/2018 Adrenal adenoma, left [D35.02] 08/25/2018 More... Visit Notes: >> Sudha Pink SUPERVISOR TELEVISION CHASSIS REPAIR WedMay 24, 2019 3:29 PM Status: Signed For about 4-5 days has been lightheaded. Has been having itc rigoberto all over notices more at night. Feels like electric shock feeling all over body. In the middle of collecting 24 hour urine sample currently. Prescriptions ordered this encounter Disp Refills Start End CPD PROGESTERONE 50 MG CAPSULE 60 c* 2 05/24/2019 08/22/2019 Route: ORAL Sig: Take 1 capsule by mouth twice daily. ALPRAZOLAM 1 MG TABLET 20 t* 0 05/24/2019 06/23/2019 Route: ORAL Sig: Take 1 tablet by mouth three times daily as needed for up to 30 days. Medications Discontinued During This Encounter progesterone micronized (PROMETRIUM)* 03/17/2019 05/24/2019 Class: Med Update Route: ORAL Sig: Take 1 capsule by mouth every other day. TAKE WITH FOOD . Patient not taking: Reported on 03/31/2019 Disc: Reason for discontinue is not on file. SYNTHROID 137 mcg tablet 30 t* 5 05/12/2019 05/24/2019 Route: ORAL Sig: Take 1 tablet by mouth once daily. Disc: Reason for discontinue is not on file. chlorthalidone (HYGROTON) 25 mg tabl* 10 t* 1 05/09/201905/24 Route: ORAL Sig: Take 1 tablet by mouth once daily as needed. Disc: Reason for discontinue is not on file. ALPRAZolam (XANAX) 1 mg tablet 20 t* 0 02/03/2019 05/24/2019 Class: Print RX Route: ORAL Sig: Take 1 tablet by mouth three times daily as needed for up to 30 days. Disc: Reason for discontinue is not on file. hyoscyamine sublingual (LEVSIN SL) 0* 20 t* 0 04/03/201905/24 Route: ORAL Sig: Take 1 tablet by mouth every 4 hours as needed (FOR GATE WATCHMAN MPING). Disc: Reason for discontinue is not on file. Disposition: Return in about 4 weeks (around 06/21/2019). Follow-up and Disposition History Recorded Encounter Status:Closed by HUGO NAVA MD on 05/24/19 urinalysis with microscopic on 2019-05-12 Bilirubin, Urine Negative Negative Normal 05-12-2019 [facility] ([id number]) Comment: Performed By: #### TFTEST ## ## [facility] [address] [place] [id number] Clarity (U) Clear Clear Normal 05-12-2019 [facility] ([id number]) Comment: Performed By: #### TFTEST ## ## [facility] [address] [place] [address] Color (U) Yellow Yellow Normal 05-12-2019 [facility] ([id number]) Comment: Performed By: #### TFTEST ## ## [facility] [address] [place] [address] Comments SEE COMMENT Normal 05-12-2019 [facility] ([id number]) Comment: Result Comment: N/A Performed By: #### TFTEST ## ## [facility] [address] [place] [address] Epithelial cells LM.HPF SEE COMMENT Normal 04-26 [facility] (Urine sed) [#/Area] [place] ([id number]) Comment: Result Comment: Few Squamous Epithelial Cells Performed By: #### TFTEST ## ## [facility] [address] [place] [address] Glucose Ql (U) Negative Negative Normal 05-12-2019 [facility] ([id number]) Comment: Performed By: #### TFTEST ## ## [facility] [address] [place] [address] Hemoglobin/Blood,Ur 1+ Negative Critically abnormal 05-12-2019 [facility] ([id number]) Comment: Performed By: #### TFTEST ## ## [facility] [address] [place] [address] Ketones Ql (U) Negative Negative Normal 05-12-2019 [facility] ([id number]) Comment: Performed By: #### TFTEST ## ## [facility] [address] [address] [place] [address] Leukest Negative Negative Normal 05-12-2019 [facility] ([id number]) Comment: Performed By: #### TFTEST ## ## [facility] [address] [place] [address] Nitrite Ql (U) Negative Negative Normal 05-12-2019 [facility] ([id number]) Comment: Performed By: #### TFTEST ## ## [facility] [address] [facility] [address] [place] [address] pH (Bld) 6.0 4.5-8.0 Normal 05-12-2019 [facility] ([id number]) Comment: Performed By: #### TFTEST ## ## [facility] [address] [place] [address] Protein (U) [Mass/Vol] Negative Negative mg/dL Normal [facility] ([id number]) Comment: Performed By: #### TFTEST ## ## [facility] [address] [place] [address] RBC (U) [#/Vol] 0-3 0-3 Normal 05-12-2019 [facility] ([id number]) Comment: Performed By: #### TFTEST ## ## [facility] [address] [place] [address] Specific [place], Ur 1.010 1.005-1.030 Normal [facility] ([id number]) Comment: Performed By: #### TFTEST ## ## [facility] [address] [place] [address] Urine Vladimir Comment SEE COMMENT Normal 05-12-2019 [facility] ([id number]) Comment: Result Comment: N/A Performed By: #### TFTEST ## ## [facility] [address] [place] [address] Urobilinogen Qn (U) Normal Normal Normal 05-12-2019 [facility] ([id number]) Comment: Performed By: #### TFTEST ## ## [facility] [address] [place] [address] WBC (Bld) [#/Vol] 0-5 0-5 Normal 05-12-2019 [facility] ([id number]) Comment: Performed By: #### TFTEST ## ## [facility] [address] [place] [address] progress on 2019-04 PROGRESS HNO ID: [id number] Normal 05-12-2019 [facility] Author: Antonieta Esqueda (PaGenoC) [facility] ([id number]) Service: ? Author Type: Physician Digestion Operator Type: Progress Notes Filed: 05/12/2019 6:18 PM Note Text: BP 120/82 Pulse 84 Temp 36.6 ?C (97.9 ?F) (Tympanic) R neftali 16 Wt 89.8 kg (198 lb) LMP 03/10/2010 BMI 36.21 kg/m? This Team Access Model visit is a walk in encounter. It requ ired patient-provider interaction for the medical decision making as documented below. 53 year old female with c/o pressure, burning pain across mi d to lower abdomen. No fever. Nausea. No vomiting. No appetite. Heartbu rn, acid reflux still there. Carafate helped reflux but not this pain . This is a pulling burning feeling. Bowels: normal. LBM today. No blo od, black or tarry. 4-5 times per day, gas cramps. No urinary sx. Chronic frequency. patient identifies cramping similar to when she had periods only worse. Feels pain down into her thighs. Patient has not tried Levsi n provided because she was afraid it would make her feel more foggy and tired. Patient does again that all her symptoms improved with PPI b ut she can take them due to the swelling in her feet. reviewed ultrasound of pelvis indicating probable fibroid tu mor in the uterus. HISTORIES FAMILY HISTORY Problem Relation Age of Onset - Diabetes Mother Type 2 stroke - Colon Cancer Father age 64 [place] - Diabetes Father Type 2 - Hypertension Father - Coronary Artery Disease Father Hx of [place] - Thyroid Sister hx of parathyroid disease/ hx of fibroids - other (healthy) Brother - other (healthy) Brother - Allergies Daughter - other (healthy) Daughter - other (healthy) Son - other (healthy) Son - other (healthy) Son - other (healthy) Son - Colon Cancer Paternal Aunt x5 - Colon Cancer Paternal Uncle x8 PAST MEDICAL HISTORY Diagnosis Date - Abdominal pain, chronic, right upper quadrant - Asthma As a baby, then I outgrew it. - Cystocele, midline 05/13/2009 - Delayed emergence from anesthesia 09/27/2014 - Depression - Excessive or frequent menstruation Heavy periods - HSDD 10/21/2011 - Hypothyroidism should be on FRANCESCO synthroid. - Irregular menstrual cycle Irregular periods - menopause age 43 2009 in 2012 FSH 47 - Moderate dysplasia of cervix 2001 - Parent-child conflict 03/07/2013 - PMH - PAST MEDICAL HISTORY OF thyroid ablation/hypothyroid - Postmenopausal HRT (hormone replacement therapy) 12/13/2015 in 2014 took femHRT cried 11/2015 offer climara/prometrium - Rectocele 05/13/2009 - SVT (supraventricular tachycardia) (HCC) - Syncope 05/14/2013 -Reported that she had one episode of syncope at the OSH. -H ad the episode when she stood up. -No urinary incontinence or jerki ng movements. -Never had syncope episode before. -Last Echo stress test fo r her chest pain was in 2011 (normal) Plan: -Repeat the Echo: normal - T he left ventricle is normal in size. Left ventricular systolic funct ion is normal. EF = 63 ? 5% (2D biplane) - The right ventricle is normal in size. Right ventricular systolic function is normal. - There are no sign ificant valvular abnormalities. - Prior echocardiogram performed on 11/10/11 (stress echo). No significant change. - Tele - Tobacco use - Weight gain PAST SURGICAL HISTORY Procedure Laterality Date - CERVIX UTERI CONIZA LP ELCTRO EXCI 2001 LEEP-Cervix - COLONOSCOPY 04/2017 says nl - EGD W/O OR W/BRUSH/WASH 01/22/2014,2009 EGD - LAPAROSCOPIC CHOLEYCYSTECTOMY 05/19/2011 - LIGATE FALLOPIAN TUBE 2003 Tubal ligation - PAST SURGICAL HISTORY OF 1998 tubal - PAST SURGICAL HISTORY OF 2001 thyroid ablation - REMOVAL OF OVARY(S) 09/2014 laparoscopic left, CW, umbilical/upper abdominal adhesions s een benign Social History Tobacco Use - Smoking status: Current Every Day Smoker Packs/day: 0.50 Types: Cigarettes Start date: 1985 - Smokeless tobacco: Never Used - Tobacco comment: Has quit intermittently, And I'm working on it now. 1st AM cigarette 10-15 minutes after awake. Most desired is that one, or last of day before bed. Prior 8 month quits, resumed after p mary completed. TO Substance Use Topics - Alcohol use: No - Drug use: No ACTIVE PROBLEM LIST Postablative Hypothyroidism hx of low vitamin D Panic Disorder With Agoraphobia Chronic Fatigue Fibromyalgia Syndrome Blood Pressure Elevated Without History of Htn Impaired Glucose Tolerance Svt (Supraventricular Tachycardia) (Hcc) Ptsd (Post-Traumatic Stress Disorder) Attention Deficit Hyperactivity Disorder (Adhd), Combined Ty pe Recurrent Major Depressive Disorder, in Partial Remission (H cc) menopause age 43 Tobacco Use Gerd Without Esophagitis Simple Chronic Bronchitis (Hcc) Irritable Bowel Syndrome With Diarrhea Systemic Lupus Erythematosus (Hcc) Burning Sensation of Mouth Burning Sensation of Skin Sleep Difficulties Mitral Valve Prolapse Screening for Malignant Neoplasm of The Cervix Visit for Pelvic Exam Encounter for Screening Mammogram for Malignant Neoplasm of Breast Estrogen Deficiency Adrenal Adenoma, Left Current Outpatient Medications Medication Sig Dispense Refill - SYNTHROID 137 mcg tablet Take 1 tablet by mouth once daily . 30 tablet 5 - chlorthalidone (HYGROTON) 25 mg tablet Take 1 tablet by [facility] once daily as needed. 10 tablet 1 - Estradiol (VIVELLE-DOT) 0.0375 mg/24 hr Apply 1 Patch as d irected two times a week. 8 Patch 11 - sucralfate (CARAFATE) 1 gram tablet Take 1 tablet by mouth four times daily. 40 tablet 5 - fluticasone (FLOVENT) 44 mcg/actuation inhaler Inhale 1 Pu ff as instructed twice daily. 1 Inhaler 1 - hyoscyamine sublingual (LEVSIN SL) 0.125 mg subl Take 1 ta blet by mouth every 4 hours as needed (FOR CRAMPING). 20 tablet 0 - L.acidoph-B.lactis-B.longum (FLORAJEN3) 460 mg (7.5-6- 1.5 bill. cell) cap Take 1 capsule by mouth once daily. 30 capsule 0 - progesterone micronized (PROMETRIUM) 100 mg capsule Take 1 capsule by mouth every other day. TAKE WITH FOOD. (Patient not taking: Reported on 03/31/2019 ) - lancets (FREESTYLE LANCETS) 28 gauge misc USE FOUR TIMES D AILY DIRECTED 400 Each 3 - blood sugar diagnostic (FREESTYLE TEST) test strip TEST fo ur times a day 400 Strip 3 - Blood-Glucose Meter (FREESTYLE LITE METER) monitoring kit 1 Each as needed. 1 Each 0 - Blood-Glucose Meter (FREESTYLE LITE METER) monitoring kit 1 Each as needed. 1 Each 0 No current facility-administered medications for this visit. TWO PNEUMOVAX 5 YEARS APART PRIOR TO AGE 65(1) due on 1984 ADULT PREVNAR-13 due on 1984 SHINGRIX VACCINE(1 of 2) due on 12/26/2015 MAMMOGRAM EVERY 2 YEARS due on 02/24/2019 EXAM: BP 120/82 Pulse 84 Temp 36.6 ?C (97.9 ?F) (Tympanic) R neftali 16 Wt 89.8 kg (198 lb) LMP 03/10/2010 BMI 36.21 kg/m? Pleasant adult woman in no acute distress. Alert and oriente d all spheres. Normal affect and cognition. Speech normal. No deficits to l earning or comprehension. Skin warm, dry, pink to lips and nailbeds. Normal turgor. Respirations regular and unlabored. HEENT WNL. TM's clear. Nose and oropharynx free from injecti on or lesion. No cervical lymph nodes. Thyroid non-tender, no masses Chest CTA. HRRR without murmur or gallop. Abdomen: active bowel sounds throughout, soft, nontender, no masses or organomegaly. No CVAT. Extrem: no clubbing or cyanosis. Edema: none. Extremities ar e warm and pink with prompt capillary refill. Component Latest Ref Rng AND Units 05/12/2019 GLUCOSE UA (POCT) Negative mg/dL Negative BILIRUBIN UA (POCT) Negative Negative KETONE UA (POCT) Negative mg/dL Negative SPECIFIC GRAVITY UA (POCT) 1.005 - 1.030 1.015 HEMOGLOBIN/BLOOD UA (POCT) Negative Small (A) PH UA (POCT) 4.5 - 8.0 6.0 PROTEIN UA (POCT) Negative mg/dL Negative UROBILINOGEN UA (POCT) Normal E.U./dL 0.2 NITRITE UA (POCT) Negative Negative LEUKOCYTES UA (POCT) Negative Negative COLOR UA (POCT) Yellow CLARITY UA (POCT) Clear ASSESSMENT/PLAN: 1. Lower abdominal pain - ICD9: 789.09, ICD10: R10.30 etiology unclear. Patient may be having uterine cramping rel ated to fluctuation hormones. Low suspicion that she has a mass or u nderlying surgical problem. Encouraged patient to try Levsin sublingual. She also identifies that BI use clues about these symptoms. Suggested she might try it once or twice a week to see for help to control symptoms and moderate to adverse effects. Follow-up. - UA DIP B/O - URINALYSIS WITH MICROSCOPIC M Dheeraj Ceja PA-C obsolete on 2019-04 OBSOLETE Procedure (WOOB) Normal 05-12-2019 Yusef mckeon JAZLYN Jones ([id number]) 1965 [facility] Date Time Provider Department ([id number]) 05/12/19 8:00 AM ZOË DEJESUS WOOB During your visit today, we recorded the following informati on about you: Referring Provider: MIREYA BARRERA ([facility]) [[id number]] Allergies As of Date: 05/12/2019 Noted Allergy Reaction CODEINE 09/27/2014 8 - GI Upset 11 - Vomiting PERCOCET (OXYCODONE-ACETAMINOPHEN)07/17/2011 11 - Vomiting SOLUMEDROL (METHYLPREDNISOLONE SO*01/22/2014 1 - Mental Stat us Change Comments: Made her rageful VICODIN (HYDROCODONE-ACETAMINOPHE*07/17/2011 11 - Vomiting COMBIPATCH (ESTRADIOL-NORETHINDRO*10/26/2016 5 - Intolerance Comments: feels wired, muscles hurt, lips/mouth burn, feels like asthma flaring, nausea, dizziness. METFORMIN 10/28/2017 14 - Other: See Comments Comments: Myalgias. PEPCID (FAMOTIDINE (PF)) 07/07/2016 14 - Other: See Comments Comments: Dry eyes, mouth, rash, itching, anxiety TAPAZOLE (METHIMAZOLE) 10/14/2005 4 - Hives Date Reviewed: 05/05/2019 Reviewed by: Edna Garzon Ma - Fully Assessed Reason for Visit: BRAID FOLDER Ultrasound [[id number]] Primary Visit Diagnosis:Cyst of right ovary [N83.201] Prescriptions as of 05/12/2019 Sig: CHLORTHALIDONE 25 MG TABLET Take 1 tablet by mouth once d* ESTRADIOL 0.0375 MG/24 HR MANJU* Apply 1 Patch as directed two * X SYNTHROID 137 MCG TABLET Take 1 tablet by mouth once d* SUCRALFATE 1 GRAM TABLET Take 1 tablet by mouth four t* FLUTICASONE PROPIONATE 44 MCG* Inhale 1 Puff as instructed t * HYOSCYAMINE 0.125 MG SUBLINGU* Take 1 tablet by mouth every * FLORAJEN3 460 MG (7.5-6-1.5 B* Take 1 capsule by mouth once * PROGESTERONE MICRONIZED 100 M* Take 1 capsule by mouth every * Patient not taking: Reported on 03/31/2019 LANCETS 28 GAUGE USE FOUR TIMES DAILY DIREC* BLOOD SUGAR DIAGNOSTIC STRIPS TEST four times a day BLOOD-GLUCOSE METER KIT 1 Each as needed. BLOOD-GLUCOSE METER KIT 1 Each as needed. Problem List As Of Date 05/12/2019 Noted Resolved Postablative hypothyroidism [E89.0] 04/06/2006 More... Excessive or frequent menstruation [N92.0] 01/05/20072011 Irregular menstrual cycle [N92.6] 01/05/2007 10/06/2011 Unspecified aftercare [Z51.89] 05/26/2011 10/06/2011 Abdominal pain, chronic, right upper quadrant [* 10/06/2011 Post-menopause [Z78.0] 10/21/2011 03/18/2015 More... URI (upper respiratory infection) [J06.9] 05/14/2013 015 More... Pneumonia [J18.9] 05/14/2013 07/11/2014 More... More... More... More... More... Adrenal disorder [E27.9] 05/24/2013 07/11/2014 hx of low vitamin D [E55.9] 06/01/2013 Panic disorder with agoraphobia [F40.01] 07/10/2013 Chronic fatigue fibromyalgia syndrome [R53.82, *07/12/2013 Marital conflict [Z63.0] 08/30/2013 07/11/2014 Blood pressure elevated without history of HTN *09/06/2014 Impaired glucose tolerance [R73.02] 09/06/2014 More... Ovarian cyst [N83.209] 09/24/2014 03/18/2015 SVT (supraventricular tachycardia) (HCC) [I47.1]09/27/2014 Delayed emergence from anesthesia [T88.59XA] 09/27/201409/25 On home oxygen therapy [Z99.81] 09/27/2014 12/13/2015 PTSD (post-traumatic stress disorder) [F43.10] 11/01/2014 Attention deficit hyperactivity disorder (ADHD)*11/08/2014 Recurrent major depressive disorder, in partial*07/09/2015 Encounter for screening mammogram for malignant*12/12/2015 0 11/09/2016 menopause age 43 [N95.1] Tobacco use [Z72.0] Postmenopausal HRT (hormone replacement therapy*12/13/2015 0 11/09/2016 Weight gain [R63.5] 10/19/2017 GERD without esophagitis [K21.9] 05/12/2017 More... Simple chronic bronchitis (HCC) [J41.0] 12/01/2017 More... Irritable bowel syndrome with diarrhea [K58.0] 12/14/2017 Systemic lupus erythematosus (HCC) [M32.9] 02/14/2018 Burning sensation of mouth [R20.8] 02/16/2018 Burning sensation of skin [R20.8] 02/16/2018 Sleep difficulties [G47.9] 02/16/2018 Mitral valve prolapse [I34.1] 02/23/2018 More... Screening for malignant neoplasm of the cervix *06/20/2018 Visit for pelvic exam [Z01.419] 06/20/2018 Encounter for screening mammogram for malignant*06/20/2018 Estrogen deficiency [E28.39] 06/20/2018 Adrenal adenoma, left [D35.02] 08/25/2018 More... Encounter Status:Closed by ZOË CAPPS MD on 05/12/19 cnov on 2019-05-12 CNOV Office Visit (FAMPWS) Normal 05-12-19 [place] JAZLYN Jones ([id number]) 1965 [facility] Date Time Provider Department ([id number]) 05/12/19 1:40 PM Antonieta CEJA) [facility] During your visit today, we recorded the following informati on about you: Temperature Pulse Respiration Blood pressure 97.9 degrees 84/minute 16/minute 120/82 Weight 89.8 kg M Dheeraj Ceja PA-C 05/12/2019 6:18 PM Signed BP 120/82 Pulse 84 Temp 36.6 ?C (97.9 ?F) (Tympanic) R neftali 16 Wt 89.8 kg (198 lb) LMP 03/10/2010 BMI 36.21 kg/m? This Team Access Model visit is a walk in encounter. It requ ired patient-provider interaction for the medical decision making as documented below. 53 year old female with c/o pressure, burning pain across mid to lower abdomen. No fever. Nausea. No vomitin g. No appetite. Heartburn, acid reflux still there. Carafate helped reflux but not this pain. This is a pu lling burning feeling. Bowels: normal. LBM today. No blood, black or tarry. 4-5 times per day, gas cramps. No urinary sx. Chronic frequency. patien t identifies cramping similar to when she had periods only worse. Feels pain down in to her thighs. Patient has not tried Levsin provided because she was afraid it wo uld make her feel more foggy and tired. Patient does again that all her symptoms improved with PPI but she can take them due to the swelling in her feet. reviewed ultrasound of pelvis indicating probable fibroid tumor in the uterus. HISTORIES FAMILY HISTORY Problem Relation Age of Onset - Diabetes Mother Type 2 stroke - Colon Cancer Father age 64 [place] - Diabetes Father Type 2 - Hypertension Father - Coronary Artery Disease Father Hx of [place] - Thyroid Sister hx of parathyroid disease/ hx of fibroids - other (healthy) Brother - other (healthy) Brother - Allergies Daughter - other (healthy) Daughter - other (healthy) Son - other (healthy) Son - other (healthy) Son - other (healthy) Son - Colon Cancer Paternal Aunt x5 - Colon Cancer Paternal Uncle x8 PAST MEDICAL HISTORY Diagnosis Date - Abdominal pain, chronic, right upper quadrant - Asthma As a baby, then I outgrew it. - Cystocele, midline 05/13/2009 - Delayed emergence from anesthesia 09/27/2014 - Depression - Excessive or frequent menstruation Heavy periods - HSDD 10/21/2011 - Hypothyroidism should be on FRANCESCO synthroid. - Irregular menstrual cycle Irregular periods - menopause age 43 2009 in 2012 FSH 47 - Moderate dysplasia of cervix 2001 - Parent-child conflict 03/07/2013 - PMH - PAST MEDICAL HISTORY OF thyroid ablation/hypothyroid - Postmenopausal HRT (hormone replacement therapy) 12/13/2015 in 2014 took femHRT cried 11/2015 offer climara/prometrium - Rectocele 05/13/2009 - SVT (supraventricular tachycardia) ([facility]) - Syncope 05/14/2013 -Reported that she had one episode of syncope at the OSH. -H ad the episode when she stood up. -No urinary incontinence or jerking movements. -Never had syncope episode before. -Last Echo stress test f or her chest pain was in 2011 (normal) Plan: -Repeat the Echo: normal - The left ventricle is normal in size. Left ventricular systo lic function is normal. EF = 63 ? 5% (2D biplane) - The right ventricle is normal in size. Right joel tricular systolic function is normal. - There are no significant valvular abnormalities. - Prior echocardiogram performed on 11/10/11 (stress echo). No significant change. - Tele - Tobacco use - Weight gain PAST SURGICAL HISTORY Procedure Laterality Date - CERVIX UTERI CONIZA LP ELCTRO EXCI 2001 LEEP-Cervix - COLONOSCOPY 04/2017 says nl - EGD W/O OR W/BRUSH/WASH 01/22/2014,2009 EGD - LAPAROSCOPIC CHOLEYCYSTECTOMY 05/19/2011 - LIGATE FALLOPIAN TUBE 2003 Tubal ligation - PAST SURGICAL HISTORY OF 1998 tubal - PAST SURGICAL HISTORY OF 2001 thyroid ablation - REMOVAL OF OVARY(S) 09/2014 laparoscopic left, CW, umbilical/upper abdominal adhesions s een benign Social History Tobacco Use - Smoking status: Current Every Day Smoker Packs/day: 0.50 Types: Cigarettes Start date: 1985 - Smokeless tobacco: Never Used - Tobacco comment: Has quit intermittently, And I'm working on it now. 1st AM cigarette 10-15 minutes after awake. Most desire d is that one, or last of day before bed. Prior 8 month quits, resumed after pregnancies c ompleted. TO Substance Use Topics - Alcohol use: No - Drug use: No ACTIVE PROBLEM LIST Postablative Hypothyroidism hx of low vitamin D Panic Disorder With Agoraphobia Chronic Fatigue Fibromyalgia Syndrome Blood Pressure Elevated Without History of Htn Impaired Glucose Tolerance Svt (Supraventricular Tachycardia) (Hcc) Ptsd (Post-Traumatic Stress Disorder) Attention Deficit Hyperactivity Disorder (Adhd), Combined Ty pe Recurrent Major Depressive Disorder, in Partial Remission (H cc) menopause age 43 Tobacco Use Gerd Without Esophagitis Simple Chronic Bronchitis (Hcc) Irritable Bowel Syndrome With Diarrhea Systemic Lupus Erythematosus (Hcc) Burning Sensation of Mouth Burning Sensation of Skin Sleep Difficulties Mitral Valve Prolapse Screening for Malignant Neoplasm of The Cervix Visit for Pelvic Exam Encounter for Screening Mammogram for Malignant Neoplasm of Breast Estrogen Deficiency Adrenal Adenoma, Left Current Outpatient Medications Medication Sig Dispense Refill - SYNTHROID 137 mcg tablet Take 1 tablet by mouth once daily . 30 tablet 5 - chlorthalidone (HYGROTON) 25 mg tablet Take 1 tablet by mouth once daily as needed. 10 tablet 1 - Estradiol (VIVELLE-DOT) 0. 0375 mg/24 hr Apply 1 Patch as directed two times a week. 8 Patch 11 - sucralfate (CARAFATE) 1 gram tablet Ta ke 1 tablet by mouth four times daily. 40 tablet 5 - fluticasone (FLOVENT) 44 mcg/actuation inhaler Inhal e 1 Puff as instructed twice daily. 1 Inhaler 1 - hyoscyamine sublingual (LE VSIN SL) 0.125 mg subl Take 1 tablet by mouth every 4 hours as needed (FOR CRAMPING). 20 tablet 0 - L.acidoph-B.lactis-B.longum (FLORAJEN3) 460 mg (7.5- 6- 1.5 bill. cell) cap Take 1 capsule by mouth once daily. 30 capsule 0 - progesterone micronized (PROMETRIUM) 100 mg ca psule Take 1 capsule by mouth every other day. TAKE WITH FOOD. (Patient not taking: Repo rted on 03/31/2019 ) - lancets (FREESTYLE LANCETS) [facility] USE FOUR T IMES DAILY DIRECTED 400 Each 3 - blood sugar diagnostic (FREESTYLE TEST ) test strip TEST four times a day 400 Strip 3 - Blood-Glucose Meter (FREES TYLE LITE METER) monitoring kit 1 Each as needed. 1 Each 0 - Blood-Glucose Meter (FREES TYLE LITE METER) monitoring kit 1 Each as needed. 1 Each 0 No current facility-administered medications for this visit. TWO PNEUMOVAX 5 YEARS APART PRIOR TO AGE 65(1) due on 1984 ADULT PREVNAR-13 due on 1984 SHINGRIX VACCINE(1 of 2) due on 12/26/2015 MAMMOGRAM EVERY 2 YEARS due on 02/24/2019 EXAM: BP 120/82 Pulse 84 Temp 36.6 ?C (97.9 ?F) (Tympanic) R neftali 16 Wt 89.8 kg (198 lb) LMP 03/10/2010 BMI 36.21 kg/m? Pleasant adult woman in no acute distress. Alert and oriente d all spheres. Normal affect and cognition. Speech normal. No deficits to l earning or comprehension. Skin warm, dry, pink to lips and nailbeds. Normal turgor. Respirations regular and unlabored. HEENT WNL. TM's clear. Nose and oropharynx free from i njection or lesion. No cervical lymph nodes. Thyroid non-tender, no masses Chest CTA. HRRR without murmur or gallop. Abdomen: active bowel sounds throughout, soft, nontender, no masses or organomegaly. No CVAT. Extrem: no clubbing or cyanosis. Edema: none. Extremities are warm and pink with prompt capillary refill. Component Latest Ref Rng AND Units 05/12/2019 GLUCOSE UA (POCT) Negative mg/dL Negative BILIRUBIN UA (POCT) Negative Negative KETONE UA (POCT) Negative mg/dL Negative SPECIFIC GRAVITY UA (POCT) 1.005 - 1.030 1.015 HEMOGLOBIN/BLOOD UA (POCT) Negative Small (A) PH UA (POCT) 4.5 - 8.0 6.0 PROTEIN UA (POCT) Negative mg/dL Negative UROBILINOGEN UA (POCT) Normal E.U./dL 0.2 NITRITE UA (POCT) Negative Negative LEUKOCYTES UA (POCT) Negative Negative COLOR UA (POCT) Yellow CLARITY UA (POCT) Clear ASSESSMENT/PLAN: 1. Lower abdominal pain - ICD9: 789.09, ICD10: R10.30 etiology unclear. Patient may be having uterine cramping rel ated to fluctuation hormones. Low suspicion that she has a mass or underlying surgical problem. Encouraged patient to try Levsin sublingual. She also identifies that BI use clues about these symptoms. Suggested she might try it once or twice a week to see for help to control symptoms and moderate to adverse effects. Follow-up. - UA DIP B/O - URINALYSIS WITH MICROSCOPIC M Dheeraj Ceja PA-C Referring Provider: SELF [[id number]] Allergies As of Date: 05/12/2019 Noted Allergy Reaction CODEINE 09/27/2014 8 - GI Upset 11 - Vomiting PERCOCET (OXYCODONE-ACETAMINOPHEN)07/17/2011 11 - Vomiting SOLUMEDROL (METHYLPREDNISOLONE SO*01/22/2014 1 - Mental Stat us Change Comments: Made her rageful VICODIN (HYDROCODONE-ACETAMINOPHE*07/17/2011 11 - Vomiting COMBIPATCH (ESTRADIOL-NORETHINDRO*10/26/2016 5 - Intolerance Comments: feels wired, muscles hurt, lips/mouth burn, feels like asthma flaring, nausea, dizziness. METFORMIN 10/28/2017 14 - Other: See Comments Comments: Myalgias. PEPCID (FAMOTIDINE (PF)) 07/07/2016 14 - Other: See Comments Comments: Dry eyes, mouth, rash, itching, anxiety TAPAZOLE (METHIMAZOLE) 10/14/2005 4 - Hives Date Reviewed: 05/12/2019 Reviewed by: Sandra Hackett LPN - Fully Assessed Reason for Visit: Pain [78] Cmt: in abdomen with pressure Nausea [70] Dizziness [36] Cmt: unable to focus eyes, headache, brain fo g Primary Visit Diagnosis:Lower abdominal pain [R10.30] Order(s):UA DIP B/O [[id number]] Order #: [id number] UA DIP, URINE (POC) [[id number]] Order #: [id number]. #:[id number] URINALYSIS WITH MICROSCOPIC [SQUAWMIC] Order #: [id number] ec. #:[id number] Prescriptions as of 05/12/2019 Sig: SYNTHROID 137 MCG TABLET Take 1 tablet by mouth once d* CHLORTHALIDONE 25 MG TABLET Take 1 tablet by mouth once d* ESTRADIOL 0.0375 MG/24 HR MANJU* Apply 1 Patch as directed two * SUCRALFATE 1 GRAM TABLET Take 1 tablet by mouth four t* FLUTICASONE PROPIONATE 44 MCG* Inhale 1 Puff as instructed t * HYOSCYAMINE 0.125 MG SUBLINGU* Take 1 tablet by mouth every * FLORAJEN3 460 MG (7.5-6-1.5 B* Take 1 capsule by mouth once * PROGESTERONE MICRONIZED 100 M* Take 1 capsule by mouth every * Patient not taking: Reported on 03/31/2019 LANCETS 28 GAUGE USE FOUR TIMES DAILY DIREC* BLOOD SUGAR DIAGNOSTIC STRIPS TEST four times a day BLOOD-GLUCOSE METER KIT 1 Each as needed. BLOOD-GLUCOSE METER KIT 1 Each as needed. Problem List As Of Date 05/12/2019 Noted Resolved Postablative hypothyroidism [E89.0] 04/06/2006 More... Excessive or frequent menstruation [N92.0] 01/05/20072011 Irregular menstrual cycle [N92.6] 01/05/2007 10/06/2011 Unspecified aftercare [Z51.89] 05/26/2011 10/06/2011 Abdominal pain, chronic, right upper quadrant [* 10/06/2011 Post-menopause [Z78.0] 10/21/2011 03/18/2015 More... URI (upper respiratory infection) [J06.9] 05/14/2013 015 More... Pneumonia [J18.9] 05/14/2013 07/11/2014 More... More... More... More... More... Adrenal disorder [E27.9] 05/24/2013 07/11/2014 hx of low vitamin D [E55.9] 06/01/2013 Panic disorder with agoraphobia [F40.01] 07/10/2013 Chronic fatigue fibromyalgia syndrome [R53.82, *07/12/2013 Marital conflict [Z63.0] 08/30/2013 07/11/2014 Blood pressure elevated without history of HTN *09/06/2014 Impaired glucose tolerance [R73.02] 09/06/2014 More... Ovarian cyst [N83.209] 09/24/2014 03/18/2015 SVT (supraventricular tachycardia) (HCC) [I47.1]09/27/2014 Delayed emergence from anesthesia [T88.59XA] 09/27/201409/25 On home oxygen therapy [Z99.81] 09/27/2014 12/13/2015 PTSD (post-traumatic stress disorder) [F43.10] 11/01/2014 Attention deficit hyperactivity disorder (ADHD)*11/08/2014 Recurrent major depressive disorder, in partial*07/09/2015 Encounter for screening mammogram for malignant*12/12/2015 0 11/09/2016 menopause age 43 [N95.1] Tobacco use [Z72.0] Postmenopausal HRT (hormone replacement therapy*12/13/2015 0 11/09/2016 Weight gain [R63.5] 10/19/2017 GERD without esophagitis [K21.9] 05/12/2017 More... Simple chronic bronchitis (HCC) [J41.0] 12/01/2017 More... Irritable bowel syndrome with diarrhea [K58.0] 12/14/2017 Systemic lupus erythematosus (HCC) [M32.9] 02/14/2018 Burning sensation of mouth [R20.8] 02/16/2018 Burning sensation of skin [R20.8] 02/16/2018 Sleep difficulties [G47.9] 02/16/2018 Mitral valve prolapse [I34.1] 02/23/2018 More... Screening for malignant neoplasm of the cervix *06/20/2018 Visit for pelvic exam [Z01.419] 06/20/2018 Encounter for screening mammogram for malignant*06/20/2018 Estrogen deficiency [E28.39] 06/20/2018 Adrenal adenoma, left [D35.02] 08/25/2018 More... Encounter Status:Closed by Antonieta CEJA PA-C on 05/12/19 obsolete on 2019-04 OBSOLETE Refill (FAMPWS) Normal 05-09-2019 [facility] JAZLYN Jones ([id number]) 1965 [facility] Time Provider Department ([id number]) 05/09/19 HUGO NAVA FAMPWS During your visit today, we recorded the following informati on about you: Katlyn Mills LPN 05/09/2019 11:03 AM Signed [facility] faxed a request for the following refill(s ): Pending Prescriptions Disp Refills CHLORTHALIDONE 25 MG TABLET 10 tablet 1 Sig: Take 1 tablet by mouth once daily as needed. FRANCESCO: No ANCELMO: 05/02/19 NOV: None scheduled Last Refill: 04/20/19 #10 1 refill Katlyn Gene MARRERO Allergies As of Date: 05/09/2019 Noted Allergy Reaction CODEINE 09/27/2014 8 - GI Upset 11 - Vomiting PERCOCET (OXYCODONE-ACETAMINOPHEN)07/17/2011 11 - Vomiting SOLUMEDROL (METHYLPREDNISOLONE SO*01/22/2014 1 - Mental Stat us Change Comments: Made her rageful VICODIN (HYDROCODONE-ACETAMINOPHE*07/17/2011 11 - Vomiting COMBIPATCH (ESTRADIOL-NORETHINDRO*10/26/2016 5 - Intolerance Comments: feels wired, muscles hurt, lips/mouth burn, feels like asthma flaring, nausea, dizziness. METFORMIN 10/28/2017 14 - Other: See Comments Comments: Myalgias. PEPCID (FAMOTIDINE (PF)) 07/07/2016 14 - Other: See Comments Comments: Dry eyes, mouth, rash, itching, anxiety TAPAZOLE (METHIMAZOLE) 10/14/2005 4 - Hives Date Reviewed: 05/05/2019 Reviewed by: Edna Garzon Ma - Fully Assessed Reason for Visit: Refill Request [94] Visit Diagnosis:Swelling [R60.9] Order(s):chlorthalidone (HYGROTON) 25 mg tabletTake 1 tablet by mouth once daily as needed.Disp: 10 tabletRfl: 1 Prescriptions as of 05/09/2019 Sig: CHLORTHALIDONE 25 MG TABLET Take 1 tablet by mouth once d* SYNTHROID 137 MCG TABLET Take 1 tablet by mouth once d* ESTRADIOL 0.0375 MG/24 HR MANJU* Apply 1 Patch as directed two * SUCRALFATE 1 GRAM TABLET Take 1 tablet by mouth four t* FLUTICASONE PROPIONATE 44 MCG* Inhale 1 Puff as instructed t * HYOSCYAMINE 0.125 MG SUBLINGU* Take 1 tablet by mouth every * FLORAJEN3 460 MG (7.5-6-1.5 B* Take 1 capsule by mouth once * PROGESTERONE MICRONIZED 100 M* Take 1 capsule by mouth every * Patient not taking: Reported on 03/31/2019 LANCETS 28 GAUGE USE FOUR TIMES DAILY DIREC* BLOOD SUGAR DIAGNOSTIC STRIPS TEST four times a day BLOOD-GLUCOSE METER KIT 1 Each as needed. BLOOD-GLUCOSE METER KIT 1 Each as needed. Problem List As Of Date 05/09/2019 Noted Resolved Postablative hypothyroidism [E89.0] 04/06/2006 More... Excessive or frequent menstruation [N92.0] 01/05/20072011 Irregular menstrual cycle [N92.6] 01/05/2007 10/06/2011 Unspecified aftercare [Z51.89] 05/26/2011 10/06/2011 Abdominal pain, chronic, right upper quadrant [* 10/06/2011 Post-menopause [Z78.0] 10/21/2011 03/18/2015 More... URI (upper respiratory infection) [J06.9] 05/14/2013 015 More... Pneumonia [J18.9] 05/14/2013 07/11/2014 More... More... More... More... More... Adrenal disorder [E27.9] 05/24/2013 07/11/2014 hx of low vitamin D [E55.9] 06/01/2013 Panic disorder with agoraphobia [F40.01] 07/10/2013 Chronic fatigue fibromyalgia syndrome [R53.82, *07/12/2013 Marital conflict [Z63.0] 08/30/2013 07/11/2014 Blood pressure elevated without history of HTN *09/06/2014 Impaired glucose tolerance [R73.02] 09/06/2014 More... Ovarian cyst [N83.209] 09/24/2014 03/18/2015 SVT (supraventricular tachycardia) (HCC) [I47.1]09/27/2014 Delayed emergence from anesthesia [T88.59XA] 09/27/201409/25 On home oxygen therapy [Z99.81] 09/27/2014 12/13/2015 PTSD (post-traumatic stress disorder) [F43.10] 11/01/2014 Attention deficit hyperactivity disorder (ADHD)*11/08/2014 Recurrent major depressive disorder, in partial*07/09/2015 Encounter for screening mammogram for malignant*12/12/2015 0 11/09/2016 menopause age 43 [N95.1] Tobacco use [Z72.0] Postmenopausal HRT (hormone replacement therapy*12/13/2015 0 11/09/2016 Weight gain [R63.5] 10/19/2017 GERD without esophagitis [K21.9] 05/12/2017 More... Simple chronic bronchitis (HCC) [J41.0] 12/01/2017 More... Irritable bowel syndrome with diarrhea [K58.0] 12/14/2017 Systemic lupus erythematosus (HCC) [M32.9] 02/14/2018 Burning sensation of mouth [R20.8] 02/16/2018 Burning sensation of skin [R20.8] 02/16/2018 Sleep difficulties [G47.9] 02/16/2018 Mitral valve prolapse [I34.1] 02/23/2018 More... Screening for malignant neoplasm of the cervix *06/20/2018 Visit for pelvic exam [Z01.419] 06/20/2018 Encounter for screening mammogram for malignant*06/20/2018 Estrogen deficiency [E28.39] 06/20/2018 Adrenal adenoma, left [D35.02] 08/25/2018 More... Prescriptions ordered this encounter Disp Refills Start End CHLORTHALIDONE 25 MG TABLET 10 t* 1 05/09/2019 Route: ORAL Sig: Take 1 tablet by mouth once daily as needed. Medications Discontinued During This Encounter chlorthalidone (HYGROTON) 25 mg tabl* 10 t* 1 04/20/201904/26 Route: ORAL Sig: Take 1 tablet by mouth once daily as needed. Disc: Reason for discontinue is not on file. Encounter Status:Closed by HUGO NAVA MD on 05/09/19 progress on 2019-04 PROGRESS HNO ID: [id number] Normal 05-05-2019 [facility] Author: Melissa Silva Dixon ([id number]) Service: ? Author Type: Nurse Practitioner Type: Progress Notes Filed: 05/05/2019 9:13 AM Note Text: Jazlyn Garzon a 53 year old female who presents, requested by Dr. Nava, to set up EGD and colonoscopy. Her last procedures were perform ed by Dr. Hernandez 02/10/17. EGD was normal. pH test: total acid exposu re was 10% (all upright position). She had a TA in the sigmoid colon an d hyperplastic polyp in the rectum, scattered diverticula in the descending colon. The patient's father had colon cancer and at age 64. Sh haily has paternal aunts and uncles with the disease. Her maternal aun t has stomach cancer. The patient was seen by Dr. Per Coe 10/19/17 regarding reflux. That note has been reviewed. Presenting complaint:Reporting horrible reflux and burning in my mouth. My tongue and lips burn from acid reflux but I can't tolerat e the PPIs. Notes that she had reflux all her life, but worse before per iods. She tells me that the burning in her mouth goes away when she is on estrogen. Gets pitting edema when on PPIs. Has seen Pulmonary and told reflux is causing some scarring in her lungs. Recent respiratory virus . Having a bowel movement daily. Having some constipation late ly. Usually diarrhea since cholecystectomy. No new or worsening abdominal pain - gets lower abdominal cr amping. Having a bowel movement doesn't change it. No blood or black stool. REVIEW OF SYSTEMS: GENERAL: No unplanned weight loss. RESPIRATORY: Recent respiratory. CARDIOVASCULAR: SVT intermittently that resolves itself. GI: The patient states that her appetite has been good. She does get hungry. There has been some nausea, no vomiting. She denies dysphagia and denies odynophagia. There has not been indigestion, but note s heartburn. There has been regurgitation. Bowel habits have been regular . There has been diarrhea. There has partially been constipation. The pa kavin denies rectal bleeding. There has not been melena. Intermittent abd ominal pain that is located in the left lower and right lower quadrant d escribed as cramping. BRAID FOLDER: Negative for abnormal vaginal bleeding, abnormal vagina l discharge. LMP: 2009. MUSCULOSKELETAL: No new or worsening joint pain or swelling, back pain or muscle pain. Has fibromyalgia. PSYCH: PTSD, as well as anxiety and depression- related to h ormones. HEMATOLOGY/LYMPHOLOGY Negative for prolonged bleeding, bruis ing easily or swollen nodes ENDOCRINE: Thyroid disorder. No diabetes. NEURO: No history of headaches, paralysis, seizures or tremo rs All other reviewed and negative other than HPI. PAST MEDICAL HISTORY Diagnosis Date - Abdominal pain, chronic, right upper quadrant - Asthma As a baby, then I outgrew it. - Cystocele, midline 05/13/2009 - Delayed emergence from anesthesia 09/27/2014 - Depression - Excessive or frequent menstruation Heavy periods - HSDD 10/21/2011 - Hypothyroidism should be on FRANCESCO synthroid. - Irregular menstrual cycle Irregular periods - menopause age 43 2009 in 2012 FSH 47 - Moderate dysplasia of cervix 2001 - Parent-child conflict 03/07/2013 - PMH - PAST MEDICAL HISTORY OF thyroid ablation/hypothyroid - Postmenopausal HRT (hormone replacement therapy) 12/13/2015 in 2014 took femHRT cried 11/2015 offer climara/prometrium - Rectocele 05/13/2009 - SVT (supraventricular tachycardia) (HCC) - Syncope 05/14/2013 -Reported that she had one episode of syncope at the OSH. -H ad the episode when she stood up. -No urinary incontinence or jerki ng movements. -Never had syncope episode before. -Last Echo stress test fo r her chest pain was in 2011 (normal) Plan: -Repeat the Echo: normal - T he left ventricle is normal in size. Left ventricular systolic funct ion is normal. EF = 63 ? 5% (2D biplane) - The right ventricle is normal in size. Right ventricular systolic function is normal. - There are no sign ificant valvular abnormalities. - Prior echocardiogram performed on 11/10/11 (stress echo). No significant change. - Tele - Tobacco use - Weight gain PAST SURGICAL HISTORY Procedure Laterality Date - CERVIX UTERI CONIZA LP ELCTRO EXCI 2001 LEEP-Cervix - COLONOSCOPY 04/2017 says nl - EGD W/O OR W/BRUSH/WASH 01/22/2014,2009 EGD - LAPAROSCOPIC CHOLEYCYSTECTOMY 05/19/2011 - LIGATE FALLOPIAN TUBE 2003 Tubal ligation - PAST SURGICAL HISTORY OF 1998 tubal - PAST SURGICAL HISTORY OF 2001 thyroid ablation - REMOVAL OF OVARY(S) 09/2014 laparoscopic left, CW, umbilical/upper abdominal adhesions s een benign FAMILY HISTORY Problem Relation Age of Onset - Diabetes Mother Type 2 stroke - Colon Cancer Father age 64 [place] - Diabetes Father Type 2 - Hypertension Father - Coronary Artery Disease Father Hx of [place] - Thyroid Sister hx of parathyroid disease/ hx of fibroids - other (healthy) Brother - other (healthy) Brother - Allergies Daughter - other (healthy) Daughter - other (healthy) Son - other (healthy) Son - other (healthy) Son - other (healthy) Son - Colon Cancer Paternal Aunt x5 - Colon Cancer Paternal Uncle x8 Current Outpatient Medications Medication Sig Dispense Refill - chlorthalidone (HYGROTON) 25 mg tablet Take 1 tablet by [facility] once daily as needed. 10 tablet 1 - hyoscyamine sublingual (LEVSIN SL) 0.125 mg subl Take 1 ta blet by mouth every 4 hours as needed (FOR CRAMPING). 20 tablet 0 - L.acidoph-B.lactis-B.longum (FLORAJEN3) 460 mg (7.5-6- 1.5 bill. cell) cap Take 1 capsule by mouth once daily. 30 capsule 0 - SYNTHROID 137 mcg tablet take 1 tablet by mouth ON AN EMPT Y STOMACH, EVERY WEDNESDAY AND WEDNESDAY 8 tablet 5 - SYNTHROID 125 mcg tablet take 1 tablet by mouth once daily EXCEPT ON WEDNESDAY, TAKE 137 MCG 78 tablet 1 - estradiol (CLIMARA) 0.0375 mg/24 hr Apply 1 Patch as direc geoff one time a week. (Patient not taking: Reported on 03/31/2019 ) 4 Patch 3 - progesterone micronized (PROMETRIUM) 100 mg capsule Take 1 capsule by mouth every other day. TAKE WITH FOOD. (Patient not taking: Reported on 03/31/2019 ) - lancets (FREESTYLE LANCETS) 28 gauge misc USE FOUR TIMES D AILY DIRECTED 400 Each 3 - blood sugar diagnostic (FREESTYLE TEST) test strip TEST fo ur times a day 400 Strip 3 - Blood-Glucose Meter (FREESTYLE LITE METER) monitoring kit 1 Each as needed. 1 Each 0 - Blood-Glucose Meter (FREESTYLE LITE METER) monitoring kit 1 Each as needed. 1 Each 0 No current facility-administered medications for this visit. SOCIAL HISTORY: Patient is . She smokes 1/2 ppd. She reports her alc ohol use as never. PHYSICAL EXAMINATION: Blood pressure 138/92, pulse 103, height 157.5 cm (5' 2), w eight 89.8 kg (198 lb), last menstrual period 03/10/2010, SpO2 98 %. General Appearance: Well appearing, alert, in no acute distr ess, well-hydrated, well nourished. Skin: Skin color, texture, turgor normal, no suspicious rash es or lesions. Eyes: Anicteric sclera. Oropharynx: Dentures. Neck: Supple, no adenopathy. Lungs: lungs clear to auscultation. No wheezing, rhonchi, ra les. Heart: RRR without murmur. Abdomen: Abdomen soft, non-tender. Bowel sounds normal. No m asses, organomegaly. Extremities: No deformities. Neurologic: Gait normal. Sensation grossly intact. Impression: GERD 2)family history of colon cancer Plan: The patient will be scheduled for an upper endoscopy a s well as a colonoscopy, with MAC. She requests Dr. Hernandez. I will send her notes to his office and they will contact her. The patient is encouraged to call with any questions or conc erns, or should there be any change in health status between now and the scheduled procedure. I have personally interviewed and examined this patient. I h ave read the information that the MA documented in this encounter. I spen t 25 minutes in the visit, with more than 50% of the total [id number] t giancarlo of the visit in counseling / coordination of care. Melissa Silva RN APRN.DHIRAJ españaov on 2019-05-05 CNOV Office Visit ([facility]) Normal 05-05-19 [facility] JAZLYN GARZON ([id number]) 1965 [facility] Date Time Provider Department ([id number]) 05/05/19 8:40 AM MELISSA SILVA [facility] During your visit today, we recorded the following informati on about you: Pulse Blood pressure Weight Height 103/minute 138/92 89.8 kg 1.575 m Melissa Silva RN APRN.PULLEY MAN 05/05/2019 9:13 AM Signed Jazlyn Garzon a 53 year old female who presents, requested by Dr. Nava, to set up EGD and colonoscopy. Her last procedures were performed b elidia Hernandez 02/10/17. EGD was normal. pH test: total acid exposure was 10% (all upright position). She had a TA in the sigmoid colon and hyperplasti c polyp in the rectum, scattered diverticula in the descending colon. The patient's father had colon cancer and at age 64. Kirit johansen has paternal aunts and uncles with the disease. Her maternal aunt has sto mach cancer. The patient was seen by Dr. Per Coe 8 regarding reflux. That note has been reviewed. Presenting complaint:Reporting horrible reflux and burnin g in my mouth. My tongue and lips burn from acid reflux but I can't tolerate the PPIs. Notes that she had reflux all her life, but worse befo re periods. She tells me that the burning in her mouth goes away when she is on estrogen. Gets pitting edema when on PPIs. Has seen Pulmonary and told reflux is ca using some scarring in her lungs. Recent respiratory virus. Having a bowel movement daily. Having some constipation late ly. Usually diarrhea since cholecystectomy. No new or worsening abdominal pain - gets lower abdomi nal cramping. Having a bowel movement doesn't change it. No blood or black stool. REVIEW OF SYSTEMS: GENERAL: No unplanned weight loss. RESPIRATORY: Recent respiratory. CARDIOVASCULAR: SVT intermittently that resolves itself. GI: The patient states that her appetite has been good . She does get hungry. There has been some nausea, no vomiting. She denies dysphagi a and denies odynophagia. There has not been indigestion, but notes hea rtburn. There has been regurgitation. Bowel habits have been regular. Th ere has been diarrhea. There has partially been constipation. The patient denies re ctal bleeding. There has not been melena. Intermittent abdomina l pain that is located in the left lower and right lower quadrant described as cramping. BRAID FOLDER: Negative for abnormal vaginal bleeding, abn ormal vaginal discharge. LMP: 2009. MUSCULOSKELETAL: No new or worsening joint pain or swelling, back pain or muscle pain. Has fibromyalgia. PSYCH: PTSD, as well as anxiety and depression- related to h ormones. HEMATOLOGY/LYMPHOLOGY Negative for prolonged bleeding, bruis ing easily or swollen nodes ENDOCRINE: Thyroid disorder. No diabetes. NEURO: No history of headaches, paralysis, seizures or tremo rs All other reviewed and negative other than HPI. PAST MEDICAL HISTORY Diagnosis Date - Abdominal pain, chronic, right upper quadrant - Asthma As a baby, then I outgrew it. - Cystocele, midline 05/13/2009 - Delayed emergence from anesthesia 09/27/2014 - Depression - Excessive or frequent menstruation Heavy periods - HSDD 10/21/2011 - Hypothyroidism should be on FRANCESCO synthroid. - Irregular menstrual cycle Irregular periods - menopause age 43 2009 in 2012 FSH 47 - Moderate dysplasia of cervix 2001 - Parent-child conflict 03/07/2013 - PMH - PAST MEDICAL HISTORY OF thyroid ablation/hypothyroid - Postmenopausal HRT (hormone replacement therapy) 12/13/2015 in 2014 took femHRT cried 11/2015 offer climara/prometrium - Rectocele 05/13/2009 - SVT (supraventricular tachycardia) (HCC) - Syncope 05/14/2013 -Reported that she had one episode of syncope at the OSH. -H ad the episode when she stood up. -No urinary incontinence or jerking movements. -Never had syncope episode before. -Last Echo stress test f or her chest pain was in 2011 (normal) Plan: -Repeat the Echo: normal - The left ventricle is normal in size. Left ventricular systo lic function is normal. EF = 63 ? 5% (2D biplane) - The right ventricle is normal in size. Right joel tricular systolic function is normal. - There are no significant valvular abnormalities. - Prior echocardiogram performed on 11/10/11 (stress echo). No significant change. - Tele - Tobacco use - Weight gain PAST SURGICAL HISTORY Procedure Laterality Date - CERVIX UTERI CONIZA LP ELCTRO EXCI 2001 LEEP-Cervix - COLONOSCOPY 04/2017 says nl - EGD W/O OR W/BRUSH/WASH 01/22/2014,2009 EGD - LAPAROSCOPIC CHOLEYCYSTECTOMY 05/19/2011 - LIGATE FALLOPIAN TUBE 2003 Tubal ligation - PAST SURGICAL HISTORY OF 1998 tubal - PAST SURGICAL HISTORY OF 2001 thyroid ablation - REMOVAL OF OVARY(S) 09/2014 laparoscopic left, CW, umbilical/upper abdominal adhesions s een benign FAMILY HISTORY Problem Relation Age of Onset - Diabetes Mother Type 2 stroke - Colon Cancer Father age 64 [place] - Diabetes Father Type 2 - Hypertension Father - Coronary Artery Disease Father Hx of [place] - Thyroid Sister hx of parathyroid disease/ hx of fibroids - other (healthy) Brother - other (healthy) Brother - Allergies Daughter - other (healthy) Daughter - other (healthy) Son - other (healthy) Son - other (healthy) Son - other (healthy) Son - Colon Cancer Paternal Aunt x5 - Colon Cancer Paternal Uncle x8 Current Outpatient Medications Medication Sig Dispense Refill - chlorthalidone (HYGROTON) 25 mg tablet Take 1 tablet by mouth once daily as needed. 10 tablet 1 - hyoscyamine sublingual (LE VSIN SL) 0.125 mg subl Take 1 tablet by mouth every 4 hours as needed (FOR CRAMPING). 20 tablet 0 - L.acidoph-B.lactis-B.longum (FLORAJEN3) 460 mg (7.5- 6- 1.5 bill. cell) cap Take 1 capsule by mouth once daily. 30 capsule 0 - SYNTHROID 137 mcg tablet take 1 tablet by mouth ON A N EMPTY STOMACH, EVERY WEDNESDAY AND WEDNESDAY 8 tablet 5 - SYNTHROID 125 mcg tablet take 1 tablet by mouth once daily EXCEPT ON WEDNESDAY, TAKE 137 MCG 78 tablet 1 - estradiol (CLIMARA) 0.0375 mg/24 hr Apply 1 Patch as direc geoff one time a week. (Patient not taking: Reported on 03/31/2019 ) 4 Patch 3 - progesterone micronized (PROMETRIUM) 100 mg ca psule Take 1 capsule by mouth every other day. TAKE WITH FOOD. (Patient not taking: Repo rted on 03/31/2019 ) - lancets (FREESTYLE LANCETS) 28 gauge misc USE FOUR T IMES DAILY DIRECTED 400 Each 3 - blood sugar diagnostic (FREESTYLE TEST ) test strip TEST four times a day 400 Strip 3 - Blood-Glucose Meter (FREES TYLE LITE METER) monitoring kit 1 Each as needed. 1 Each 0 - Blood-Glucose Meter (FREES TYLE LITE METER) monitoring kit 1 Each as needed. 1 Each 0 No current facility-administered medications for this visit. SOCIAL HISTORY: Patient is . She smokes 1/2 ppd. She reports her alcohol use as never. PHYSICAL EXAMINATION: Blood pressure 138/92, pulse 103, height 157.5 cm (5' 2), weight 89.8 kg (198 lb), last menstrual period 03/10/2010, SpO2 98 %. General Appearance: Well abi earing, alert, in no acute distress, well-hydrated, well nourished. Skin: Skin color, texture, turgor normal, no suspicious rash es or lesions. Eyes: Anicteric sclera. Oropharynx: Dentures. Neck: Supple, no adenopathy. Lungs: lungs clear to auscultation. No wheezing, rhonchi, ra les. Heart: RRR without murmur. Abdomen: Abdomen soft, non-t kevyn. Bowel sounds normal. No masses, organomegaly. Extremities: No deformities. Neurologic: Gait normal. Sensation grossly intact. Impression: GERD 2)family history of colon cancer Plan: The patient will be scheduled for an upper endoscopy a s well as a colonoscopy, with MAC. She requests Dr. Hernandez. I will send her notes to his office and they will contact her. The patient is encouraged to call with any questions or co ncerns, or should there be any change in health status between now and the scheduled procedure. I have personally interviewed and examined this patient. I h ave read the information that the FRED gayle mented in this encounter. I spent 25 minutes in the visit, with more than 50% of the total [id number] time of the visit in counseling / coordination of care. Melissa Silva RN FILTRATION PLANT OPERATOR.DHIRAJ Silva RN APRN.DHIRAJ 05/05/2019 9:02 AM Signed We will contact Dr. Hernandez's office wit h your request. They will contact you. Referring Provider: SELF [[id number]] Allergies As of Date: 05/05/2019 Noted Allergy Reaction CODEINE 09/27/2014 8 - GI Upset 11 - Vomiting PERCOCET (OXYCODONE-ACETAMINOPHEN)07/17/2011 11 - Vomiting SOLUMEDROL (METHYLPREDNISOLONE SO*01/22/2014 1 - Mental Stat us Change Comments: Made her rageful VICODIN (HYDROCODONE-ACETAMINOPHE*07/17/2011 11 - Vomiting COMBIPATCH (ESTRADIOL-NORETHINDRO*10/26/2016 5 - Intolerance Comments: feels wired, muscles hurt, lips/mouth burn, feels like asthma flaring, nausea, dizziness. METFORMIN 10/28/2017 14 - Other: See Comments Comments: Myalgias. PEPCID (FAMOTIDINE (PF)) 07/07/2016 14 - Other: See Comments Comments: Dry eyes, mouth, rash, itching, anxiety TAPAZOLE (METHIMAZOLE) 10/14/2005 4 - Hives Date Reviewed: 05/05/2019 Reviewed by: Edna Garzon Ma - Fully Assessed Reason for Visit: Consult [502] Cmt: colon/EGD Primary Visit Diagnosis:Damaris roesophageal reflux disease with esophagitis [K21.0] Other Visit Diagnosis:Family history of colon cancer in [facility] [Z80.0] Prescriptions as of 05/05/2019 Sig: SYNTHROID 137 MCG TABLET Take 1 tablet by mouth once d* ESTRADIOL 0.0375 MG/24 HR MANJU* Apply 1 Patch as directed two * SUCRALFATE 1 GRAM TABLET Take 1 tablet by mouth four t* FLUTICASONE PROPIONATE 44 MCG* Inhale 1 Puff as instructed t * CHLORTHALIDONE 25 MG TABLET Take 1 tablet by mouth once d* HYOSCYAMINE 0.125 MG SUBLINGU* Take 1 tablet by mouth every * FLORAJEN3 460 MG (7.5-6-1.5 B* Take 1 capsule by mouth once * PROGESTERONE MICRONIZED 100 M* Take 1 capsule by mouth every * Patient not taking: Reported on 03/31/2019 LANCETS 28 GAUGE USE FOUR TIMES DAILY DIREC* BLOOD SUGAR DIAGNOSTIC STRIPS TEST four times a day BLOOD-GLUCOSE METER KIT 1 Each as needed. BLOOD-GLUCOSE METER KIT 1 Each as needed. Problem List As Of Date 05/05/2019 Noted Resolved Postablative hypothyroidism [E89.0] 04/06/2006 More... Excessive or frequent menstruation [N92.0] 01/05/20072011 Irregular menstrual cycle [N92.6] 01/05/2007 10/06/2011 Unspecified aftercare [Z51.89] 05/26/2011 10/06/2011 Abdominal pain, chronic, right upper quadrant [* 10/06/2011 Post-menopause [Z78.0] 10/21/2011 03/18/2015 More... URI (upper respiratory infection) [J06.9] 05/14/2013 015 More... Pneumonia [J18.9] 05/14/2013 07/11/2014 More... More... More... More... More... Adrenal disorder [E27.9] 05/24/2013 07/11/2014 hx of low vitamin D [E55.9] 06/01/2013 Panic disorder with agoraphobia [F40.01] 07/10/2013 Chronic fatigue fibromyalgia syndrome [R53.82, *07/12/2013 Marital conflict [Z63.0] 08/30/2013 07/11/2014 Blood pressure elevated without history of HTN *09/06/2014 Impaired glucose tolerance [R73.02] 09/06/2014 More... Ovarian cyst [N83.209] 09/24/2014 03/18/2015 SVT (supraventricular tachycardia) (HCC) [I47.1]09/27/2014 Delayed emergence from anesthesia [T88.59XA] 09/27/201409/25 On home oxygen therapy [Z99.81] 09/27/2014 12/13/2015 PTSD (post-traumatic stress disorder) [F43.10] 11/01/2014 Attention deficit hyperactivity disorder (ADHD)*11/08/2014 Recurrent major depressive disorder, in partial*07/09/2015 Encounter for screening mammogram for malignant*12/12/2015 0 11/09/2016 menopause age 43 [N95.1] Tobacco use [Z72.0] Postmenopausal HRT (hormone replacement therapy*12/13/2015 0 11/09/2016 Weight gain [R63.5] 10/19/2017 GERD without esophagitis [K21.9] 05/12/2017 More... Simple chronic bronchitis (HCC) [J41.0] 12/01/2017 More... Irritable bowel syndrome with diarrhea [K58.0] 12/14/2017 Systemic lupus erythematosus (HCC) [M32.9] 02/14/2018 Burning sensation of mouth [R20.8] 02/16/2018 Burning sensation of skin [R20.8] 02/16/2018 Sleep difficulties [G47.9] 02/16/2018 Mitral valve prolapse [I34.1] 02/23/2018 More... Screening for malignant neoplasm of the cervix *06/20/2018 Visit for pelvic exam [Z01.419] 06/20/2018 Encounter for screening mammogram for malignant*06/20/2018 Estrogen deficiency [E28.39] 06/20/2018 Adrenal adenoma, left [D35.02] 08/25/2018 More... Other instructions from your clinician: We will contact Dr. Hernandez's office with your request. They will contact you. Encounter Status:Closed by MELISSA SILVA CNP on 05/05/19 tsh on 2019-05-02 TSH Qn 5.060 0.270-4.200 uU/mL High 05-02-2019 [facility] ([id number]) Comment: Performed By: #### TSH ####C [facility] [id number] [place], [place] [phone] progress on 2019-04 PROGRESS HNO ID: [id number] Normal 05-02-2019 [facility] Author: Antonieta Esqueda (Gregorio) Marcial Dixon ([id number]) Service: ? Author Type: Physician Digestion Operator Type: Progress Notes Filed: 05/02/2019 8:55 AM Note Text: BP 132/86 Pulse 80 Temp 36.1 ?C (97 ?F) (Tympanic) Res p 16 Wt 90.3 kg (199 lb) LMP 03/10/2010 BMI 35.82 kg/m? This Team Access Model visit is a walk in encounter. It requ ired patient-provider interaction for the medical decision making as documented below. 53 year old female with c/o diagnosed with RLL per CXR 04/23 in [facility]. Was started on Zithromax. Sx first a week before [place]. Nephew had pneumonia. No fever. Cough, wheezing. Thinks reflux related. breathing acid. Seems to worsen after eating. Using Albuterol MDI and nebs at home. Can't take prednisone: creates rage. Hormone benefits all stopped with starting ATB: no improveme nt at all. Went back to Ed because not improving. CXR.04/25/19 which sh owed stable mild hyperexpansion. No other abnormalities. HISTORIES FAMILY HISTORY Problem Relation Age of Onset - Diabetes Mother Type 2 stroke - Colon Cancer Father age 64 [place] - Diabetes Father Type 2 - Hypertension Father - Coronary Artery Disease Father Hx of [place] - Thyroid Sister hx of parathyroid disease/ hx of fibroids - other (healthy) Brother - other (healthy) Brother - Allergies Daughter - other (healthy) Daughter - other (healthy) Son - other (healthy) Son - other (healthy) Son - other (healthy) Son - Colon Cancer Paternal Aunt x5 - Colon Cancer Paternal Uncle x8 PAST MEDICAL HISTORY Diagnosis Date - Abdominal pain, chronic, right upper quadrant - Asthma As a baby, then I outgrew it. - Cystocele, midline 05/13/2009 - Delayed emergence from anesthesia 09/27/2014 - Depression - Excessive or frequent menstruation Heavy periods - HSDD 10/21/2011 - Hypothyroidism should be on FRANCESCO synthroid. - Irregular menstrual cycle Irregular periods - menopause age 43 2009 in 2012 FSH 47 - Moderate dysplasia of cervix 2001 - Parent-child conflict 03/07/2013 - PMH - PAST MEDICAL HISTORY OF thyroid ablation/hypothyroid - Postmenopausal HRT (hormone replacement therapy) 12/13/2015 in 2014 took femHRT cried 11/2015 offer climara/prometrium - Rectocele 05/13/2009 - SVT (supraventricular tachycardia) (HCC) - Syncope 05/14/2013 -Reported that she had one episode of syncope at the OSH. -H ad the episode when she stood up. -No urinary incontinence or jerki ng movements. -Never had syncope episode before. -Last Echo stress test fo r her chest pain was in 2011 (normal) Plan: -Repeat the Echo: normal - T he left ventricle is normal in size. Left ventricular systolic funct ion is normal. EF = 63 ? 5% (2D biplane) - The right ventricle is normal in size. Right ventricular systolic function is normal. - There are no sign ificant valvular abnormalities. - Prior echocardiogram performed on 11/10/11 (stress echo). No significant change. - Tele - Tobacco use - Weight gain PAST SURGICAL HISTORY Procedure Laterality Date - CERVIX UTERI CONIZA LP ELCTRO EXCI 2001 LEEP-Cervix - COLONOSCOPY 04/2017 says nl - EGD W/O OR W/BRUSH/WASH 01/22/2014,2009 EGD - LAPAROSCOPIC CHOLEYCYSTECTOMY 05/19/2011 - LIGATE FALLOPIAN TUBE 2003 Tubal ligation - PAST SURGICAL HISTORY OF 1998 tubal - PAST SURGICAL HISTORY OF 2001 thyroid ablation - REMOVAL OF OVARY(S) 09/2014 laparoscopic left, CW, umbilical/upper abdominal adhesions s een benign Social History Tobacco Use - Smoking status: Current Every Day Smoker Packs/day: 0.50 Types: Cigarettes Start date: 1985 - Smokeless tobacco: Never Used - Tobacco comment: Has quit intermittently, And I'm working on it now. 1st AM cigarette 10-15 minutes after awake. Most desired is that one, or last of day before bed. Prior 8 month quits, resumed after p regnancies completed. TO Substance Use Topics - Alcohol use: No - Drug use: No ACTIVE PROBLEM LIST Postablative Hypothyroidism hx of low vitamin D Panic Disorder With Agoraphobia Chronic Fatigue Fibromyalgia Syndrome Blood Pressure Elevated Without History of Htn Impaired Glucose Tolerance Svt (Supraventricular Tachycardia) (Hcc) Ptsd (Post-Traumatic Stress Disorder) Attention Deficit Hyperactivity Disorder (Adhd), Combined Ty pe Recurrent Major Depressive Disorder, in Partial Remission (H cc) menopause age 43 Tobacco Use Gerd Without Esophagitis Simple Chronic Bronchitis (Hcc) Irritable Bowel Syndrome With Diarrhea Systemic Lupus Erythematosus (Hcc) Burning Sensation of Mouth Burning Sensation of Skin Sleep Difficulties Mitral Valve Prolapse Screening for Malignant Neoplasm of The Cervix Visit for Pelvic Exam Encounter for Screening Mammogram for Malignant Neoplasm of Breast Estrogen Deficiency Adrenal Adenoma, Left Current Outpatient Medications Medication Sig Dispense Refill - chlorthalidone (HYGROTON) 25 mg tablet Take 1 tablet by mo uth once daily as needed. 10 tablet 1 - hyoscyamine sublingual (LEVSIN SL) 0.125 mg subl Take 1 ta blet by mouth every 4 hours as needed (FOR CRAMPING). 20 tablet 0 - L.acidoph-B.lactis-B.longum (FLORAJEN3) 460 mg (7.5-6- 1.5 bill. cell) cap Take 1 capsule by mouth once daily. 30 capsule 0 - SYNTHROID 137 mcg tablet take 1 tablet by mouth ON AN EMPT Y STOMACH, EVERY WEDNESDAY AND WEDNESDAY 8 tablet 5 - SYNTHROID 125 mcg tablet take 1 tablet by mouth once daily EXCEPT ON WEDNESDAY, TAKE 137 MCG 78 tablet 1 - estradiol (CLIMARA) 0.0375 mg/24 hr Apply 1 Patch as direc geoff one time a week. (Patient not taking: Reported on 03/31/2019 ) 4 Patch 3 - progesterone micronized (PROMETRIUM) 100 mg capsule Take 1 capsule by mouth every other day. TAKE WITH FOOD. (Patient not taking: Reported on 03/31/2019 ) - lancets (FREESTYLE LANCETS) 28 gauge misc USE FOUR TIMES D AILY DIRECTED 400 Each 3 - blood sugar diagnostic (FREESTYLE TEST) test strip TEST fo ur times a day 400 Strip 3 - Blood-Glucose Meter (FREESTYLE LITE METER) monitoring kit 1 Each as needed. 1 Each 0 - Blood-Glucose Meter (FREESTYLE LITE METER) monitoring kit 1 Each as needed. 1 Each 0 No current facility-administered medications for this visit. TWO PNEUMOVAX 5 YEARS APART PRIOR TO AGE 65(1) due on 1984 ADULT PREVNAR-13 due on 1984 MAMMOGRAM EVERY 2 YEARS due on 02/24/2019 EXAM: BP 132/86 Pulse 80 Temp 36.1 ?C (97 ?F) (Tympanic) Res p 16 Wt 90.3 kg (199 lb) LMP 03/10/2010 BMI 35.82 kg/m? Pleasant adult woman in no acute distress. Alert and oriente d all spheres. Normal affect and cognition. Speech normal. No deficits to l earning or comprehension. Sounds wheezy, harsh cough, non-productive. Skin warm, dry, pink to lips and nailbeds. Normal turgor. Respirations regular and unlabored. HEENT WNL. TM's clear. Nose and oropharynx free from injecti on or lesion. No cervical lymph nodes. Thyroid non-tender, no masses Chest CTA except fine dry crackles bibasilar. HRRR without m urmur or gallop. Abdomen: active bowel sounds throughout, soft, nontender, no masses or organomegaly. No CVAT. Extrem: no clubbing or cyanosis. Edema: none. Extremities ar e warm and pink with prompt capillary refill. ASSESSMENT/PLAN: 1. Bronchitis - ICD9: 490, ICD10: J40 (primary diagnosis) Continue albuterol. Push fluids If fever: report immediately - FLUTICASONE PROPIONATE 44 MCG/ACTUATION HFA AEROSOL INHALE R 2. Gastroesophageal reflux disease, esophagitis presence not specified - ICD9: 530.81, ICD10: K21.9 Says carafate helps in the past. Continue diet restrictions. - SUCRALFATE 1 GRAM TABLET Antonieta Ceja PA-C cnov on 2019-05-02 CNOV Office Visit (FAMPWS) Normal 05-02-[address] [place] [address] JAZLYN Jones ([id number]) 1965 [facility] Date Time Provider Department ([id number]) 05/02/19 8:00 AM Antonieta CEJA) FAMPWS During your visit today, we recorded the following informati on about you: Temperature Pulse Respiration Blood pressure 97 degrees 80/minute 16/minute 132/86 Weight 90.3 kg Antonieta Ceja PA-C 05/02/2019 8:55 AM Signed BP 132/86 Pulse 80 Temp 36.1 ?C (97 ?F) (Tympanic) Res p 16 Wt 90.3 kg (199 lb) LMP 03/10/2010 BMI 35.82 kg/m? This Team Access Model visit is a walk in encounter. It requ ired patient-provider interaction for the medical decision making as documented below. 53 year old female with c/o diagnosed wi th RLL per CXR 04/23/20 in [facility]. Was started on Zithromax. Sx first a week before Chr istmas. Nephew had pneumonia. No fever. Cough, wheezing. Thinks reflux related. leila athing acid. Seems to worsen after eating. Using Albuterol MDI and nebs at home. C an't take prednisone: creates rage. Hormone benefits all stopped with starting ATB: no improveme nt at all. Went back to Ed because not improving. CXR.04/25 which showed stable mild hyperexpansion. No other abnormalities. HISTORIES FAMILY HISTORY Problem Relation Age of Onset - Diabetes Mother Type 2 stroke - Colon Cancer Father age 64 [place] - Diabetes Father Type 2 - Hypertension Father - Coronary Artery Disease Father Hx of [place] - Thyroid Sister hx of parathyroid disease/ hx of fibroids - other (healthy) Brother - other (healthy) Brother - Allergies Daughter - other (healthy) Daughter - other (healthy) Son - other (healthy) Son - other (healthy) Son - other (healthy) Son - Colon Cancer Paternal Aunt x5 - Colon Cancer Paternal Uncle x8 PAST MEDICAL HISTORY Diagnosis Date - Abdominal pain, chronic, right upper quadrant - Asthma As a baby, then I outgrew it. - Cystocele, midline 05/13/2009 - Delayed emergence from anesthesia 09/27/2014 - Depression - Excessive or frequent menstruation Heavy periods - HSDD 10/21/2011 - Hypothyroidism should be on FRANCESCO synthroid. - Irregular menstrual cycle Irregular periods - menopause age 43 2009 in 2012 FSH 47 - Moderate dysplasia of cervix 2001 - Parent-child conflict 03/07/2013 - PMH - PAST MEDICAL HISTORY OF thyroid ablation/hypothyroid - Postmenopausal HRT (hormone replacement therapy) 12/13/2015 in 2014 took femHRT cried 11/2015 offer climara/prometrium - Rectocele 05/13/2009 - SVT (supraventricular tachycardia) (HCC) - Syncope 05/14/2013 -Reported that she had one episode of syncope at the OSH. -H ad the episode when she stood up. -No urinary incontinence or jerking movements. -Never had syncope episode before. -Last Echo stress test f or her chest pain was in 2011 (normal) Plan: -Repeat the Echo: normal - The left ventricle is normal in size. Left ventricular systo lic function is normal. EF = 63 ? 5% (2D biplane) - The right ventricle is normal in size. Right joel tricular systolic function is normal. - There are no significant valvular abnormalities. - Prior echocardiogram performed on 11/10/11 (stress echo). No significant change. - Tele - Tobacco use - Weight gain PAST SURGICAL HISTORY Procedure Laterality Date - CERVIX UTERI CONIZA LP ELCTRO EXCI 2001 LEEP-Cervix - COLONOSCOPY 04/2017 says nl - EGD W/O OR W/BRUSH/WASH 01/22/2014,2009 EGD - LAPAROSCOPIC CHOLEYCYSTECTOMY 05/19/2011 - LIGATE FALLOPIAN TUBE 2003 Tubal ligation - PAST SURGICAL HISTORY OF 1998 tubal - PAST SURGICAL HISTORY OF 2001 thyroid ablation - REMOVAL OF OVARY(S) 09/2014 laparoscopic left, CW, umbilical/upper abdominal adhesions s een benign Social History Tobacco Use - Smoking status: Current Every Day Smoker Packs/day: 0.50 Types: Cigarettes Start date: 1985 - Smokeless tobacco: Never Used - Tobacco comment: Has quit intermittently, And I'm working on it now. 1st AM cigarette 10-15 minutes after awake. Most desire d is that one, or last of day before bed. Prior 8 month quits, resumed after pregnancies c ompleted. TO Substance Use Topics - Alcohol use: No - Drug use: No ACTIVE PROBLEM LIST Postablative Hypothyroidism hx of low vitamin D Panic Disorder With Agoraphobia Chronic Fatigue Fibromyalgia Syndrome Blood Pressure Elevated Without History of Htn Impaired Glucose Tolerance Svt (Supraventricular Tachycardia) (Hcc) Ptsd (Post-Traumatic Stress Disorder) Attention Deficit Hyperactivity Disorder (Adhd), Combined Ty pe Recurrent Major Depressive Disorder, in Partial Remission (H cc) menopause age 43 Tobacco Use Gerd Without Esophagitis Simple Chronic Bronchitis (Hcc) Irritable Bowel Syndrome With Diarrhea Systemic Lupus Erythematosus (Hcc) Burning Sensation of Mouth Burning Sensation of Skin Sleep Difficulties Mitral Valve Prolapse Screening for Malignant Neoplasm of The Cervix Visit for Pelvic Exam Encounter for Screening Mammogram for Malignant Neoplasm of Breast Estrogen Deficiency Adrenal Adenoma, Left Current Outpatient Medications Medication Sig Dispense Refill - chlorthalidone (HYGROTON) 25 mg tablet Take 1 tablet by mouth once daily as needed. 10 tablet 1 - hyoscyamine sublingual (LE VSIN SL) 0.125 mg subl Take 1 tablet by mouth every 4 hours as needed (FOR CRAMPING). 20 tablet 0 - L.acidoph-B.lactis-B.longum (FLORAJEN3) 460 mg (7.5- 6- 1.5 bill. cell) cap Take 1 capsule by mouth once daily. 30 capsule 0 - SYNTHROID 137 mcg tablet take 1 tablet by mouth ON A N EMPTY STOMACH, EVERY WEDNESDAY AND WEDNESDAY 8 tablet 5 - SYNTHROID 125 mcg tablet take 1 tablet by mouth once daily EXCEPT ON WEDNESDAY, TAKE 137 MCG 78 tablet 1 - estradiol (CLIMARA) 0.0375 mg/24 hr Apply 1 Patch as direc geoff one time a week. (Patient not taking: Reported on 03/31/2019 ) 4 Patch 3 - progesterone micronized (PROMETRIUM) 100 mg ca psule Take 1 capsule by mouth every other day. TAKE WITH FOOD. (Patient not taking: Repo rted on 03/31/2019 ) - lancets (FREESTYLE LANCETS) 28 gauge misc USE FOUR T IMES DAILY DIRECTED 400 Each 3 - blood sugar diagnostic (FREESTYLE TEST ) test strip TEST four times a day 400 Strip 3 - Blood-Glucose Meter (FREES TYLE LITE METER) monitoring kit 1 Each as needed. 1 Each 0 - Blood-Glucose Meter (FREES TYLE LITE METER) monitoring kit 1 Each as needed. 1 Each 0 No current facility-administered medications for this visit. TWO PNEUMOVAX 5 YEARS APART PRIOR TO AGE 65(1) due on 1984 ADULT PREVNAR-13 due on 1984 MAMMOGRAM EVERY 2 YEARS due on 02/24/2019 EXAM: BP 132/86 Pulse 80 Temp 36.1 ?C (97 ?F) (Tympanic) Res p 16 Wt 90.3 kg (199 lb) LMP 03/10/2010 BMI 35.82 kg/m? Pleasant adult woman in no acute distress. Alert and oriente d all spheres. Normal affect and cognition. Speech normal. No deficits to l earning or comprehension. Sounds wheezy, harsh cough, non-productive. Skin warm, dry, pink to lips and nailbeds. Normal turgor. Respirations regular and unlabored. HEENT WNL. TM's clear. Nose and oropharynx free from i njection or lesion. No cervical lymph nodes. Thyroid non-tender, no masses Chest CTA except fine dry crackles bibasilar. HRRR wit hout murmur or gallop. Abdomen: active bowel sounds throughout, soft, nontender, no masses or organomegaly. No CVAT. Extrem: no clubbing or cyanosis. Edema: none. Extremities are warm and pink with prompt capillary refill. ASSESSMENT/PLAN: 1. Bronchitis - ICD9: 490, ICD10: J40 (primary diagnosis) Continue albuterol. Push fluids If fever: report immediately - FLUTICASONE PROPIONATE 44 MCG/ACTUATION HFA AEROSOL INHALE R 2. Gastroesophageal reflux disease, esop hagitis presence not specified - ICD9: 530.81, ICD10: K21.9 Says carafate helps in the past. Continue diet restrictions. - SUCRALFATE 1 GRAM TABLET GREGORIO Sibley PA-C 05/02/2019 8:53 AM Signed Acute Bronchitis What is acute bronchitis? Acute bronchitis is an infection of the bronchial (say: ?feeuk-dvh-orn?) tree. The bronchial tree is made u p of the tubes that carry air into your lungs. When these tubes get infected, th ey swell and mucus (thick fluid) forms inside them. This makes it hard for you to breathe. Y ou may cough up mucus and wheeze (make a whistling sound when you breathe). What causes acute bronchitis? Acute bronchitis is almost always caused by viru ses that attack the lining of the bronchial tree and cause infection. As your body fights back against these viruses, more swelling occurs and more mucus is made. It takes time for your body to kill the viruses and heal the damage to your bronchi al tubes. In most cases, the same viruses that cause colds cause acute bronchitis. Research has shown that bacterial infection is a much less c ommon cause of bronchitis than we used to think. Very r juan, an infection caused by a fungus can cause acute bronchitis. How do people get acute bronchitis? The viruses that cause acute bronchitis are sprayed into the air or onto people?s hands when they cough. You can get acute bronchitis if you breathe in these viruses. You can also get it if yo u touch a hand that is coated with the viruses. If you smoke or are around damaging fumes (such as tho se in certain kinds of factories), you are more likely to get a cute bronchitis and to have it longer. This is because your bronchial tree is already damaged. How is acute bronchitis treated? Most cases of acute bronchitis will go a way on their own after a few days or a week. It's a good idea to get plenty of rest, drink lots of noncaffeinated fluids (for example, water and fruit jui tiera) and increase the humidity in your environment. Because acute bronchitis is usually caused by vi ruses, antibiotics (medicines that kill bacteria) usually do not help. Even if you cough up mucus that is colored or thick, antibiotics probably won?t help you get better any faster. If you smoke, you should cut down on the number of cigaret inocencio you smoke, or stop smoking altogether. This will help your bronchial tree heal faster. For some people with acute bronchitis, doctors prescribe m edicines that are usually used to treat asthma . These medicines can help open the bronchial tubes and clear out mucus. They are usually gi joel with an inhaler. An inhaler sprays the medicine right into the bronchial tree. Your doctor wi ll decide if this treatment is right for you. How long will the cough from acute bronchitis last? You should call your doctor if: You continue to wheeze and cough for mor e than 2 weeks, especially at night or when you are active. You continue to cough for more than 2 weeks and someti mes have a bad-tasting fluid come up into your mouth. You have a cough, you feel very sick and weak, a nd you have a high fever that doesn?t go down. You cough up blood. You have trouble breathing when you lie down. Your feet swell. Sometimes the cough from acute bronchitis lasts for se veral weeks or months. Usually this happens because the bronchi al tree is taking a long time to heal. However, a cough that doesn?t go away may be a sign of another problem, like asthma or pneumonia. How can I keep from getting acute bronchitis again? One of the best ways to keep from getting acute bronchitis i s to wash your hands often to get rid of any viruses. If you smoke, the best defense against acute bronchitis is to quit. Smoking damages your bronchial tree and makes it easier for viruses to cause infection. Smoking also slows down the healing, so it takes longe r for you to get well. Reviewed/Updated: 05/01 Created: 08/24 This handout provides a general overview on this topic and may not apply to everyone. To find out if this handout applies to you and to get more information on this subject, talk to your family doctor. Copyright ? 7188-0394 [employer] Permission is granted to print and photocopy this material f or nonprofit educational uses. Written permission is required for all other use s, including electronic uses. Flovent as directed. This is a steroid inhaler which takes a few days to be maximally effective. Wash the mouth piec e after each use. If you have soreness in your tongue or throat or rash appears in these areas, com e in for examination. Carafate as directed. Notify if reflux not improving. Referring Provider: SELF [[id number]] Allergies As of Date: 05/02/2019 Noted Allergy Reaction CODEINE 09/27/2014 8 - GI Upset 11 - Vomiting PERCOCET (OXYCODONE-ACETAMINOPHEN)07/17/2011 11 - Vomiting SOLUMEDROL (METHYLPREDNISOLONE SO*01/22/2014 1 - Mental Stat us Change Comments: Made her rageful VICODIN (HYDROCODONE-ACETAMINOPHE*07/17/2011 11 - Vomiting COMBIPATCH (ESTRADIOL-NORETHINDRO*10/26/2016 5 - Intolerance Comments: feels wired, muscles hurt, lips/mouth burn, feels like asthma flaring, nausea, dizziness. METFORMIN 10/28/2017 14 - Other: See Comments Comments: Myalgias. PEPCID (FAMOTIDINE (PF)) 07/07/2016 14 - Other: See Comments Comments: Dry eyes, mouth, rash, itching, anxiety TAPAZOLE (METHIMAZOLE) 10/14/2005 4 - Hives Date Reviewed: 05/02/2019 Reviewed by: Sandra Hackett LPN - Fully Assessed Reason for Visit: Cough [28] Cmt: continues for about 3 weeks Abdominal Pain [1] Cmt: describes it as burning Primary Visit Diagnosis:Bronchitis [J40] Other Visit Diagnosis:Gastroesophageal reflux disease, eso phagitis presence not specified [K21.9] Order(s):sucralfate (CARAFATE) 1 gram tabletTake 1 tablet by mouth four times daily.Disp: 40 tabletRfl: 5 fluticasone (FLOVENT) 44 mcg/actuation inhalerInhale 1 Puff as instructed twice daily.Disp: 1 InhalerRfl: 1 Prescriptions as of 05/02/2019 Sig: CHLORTHALIDONE 25 MG TABLET Take 1 tablet by mouth once d* HYOSCYAMINE 0.125 MG SUBLINGU* Take 1 tablet by mouth every * FLORAJEN3 460 MG (7.5-6-1.5 B* Take 1 capsule by mouth once * SYNTHROID 137 MCG TABLET take 1 tablet by mouth ON AN * SYNTHROID 125 MCG TABLET take 1 tablet by mouth once d* SUCRALFATE 1 GRAM TABLET Take 1 tablet by mouth four t* FLUTICASONE PROPIONATE 44 MCG* Inhale 1 Puff as instructed t * ESTRADIOL 0.0375 MG/24 HR WEE* Apply 1 Patch as directed one * Patient not taking: Reported on 03/31/2019 PROGESTERONE MICRONIZED 100 M* Take 1 capsule by mouth every * Patient not taking: Reported on 03/31/2019 LANCETS 28 GAUGE USE FOUR TIMES DAILY DIREC* BLOOD SUGAR DIAGNOSTIC STRIPS TEST four times a day BLOOD-GLUCOSE METER KIT 1 Each as needed. BLOOD-GLUCOSE METER KIT 1 Each as needed. Problem List As Of Date 05/02/2019 Noted Resolved Postablative hypothyroidism [E89.0] 04/06/2006 More... Excessive or frequent menstruation [N92.0] 01/05/20072011 Irregular menstrual cycle [N92.6] 01/05/2007 10/06/2011 Unspecified aftercare [Z51.89] 05/26/2011 10/06/2011 Abdominal pain, chronic, right upper quadrant [* 10/06/2011 Post-menopause [Z78.0] 10/21/2011 03/18/2015 More... URI (upper respiratory infection) [J06.9] 05/14/2013 015 More... Pneumonia [J18.9] 05/14/2013 07/11/2014 More... More... More... More... More... Adrenal disorder [E27.9] 05/24/2013 07/11/2014 hx of low vitamin D [E55.9] 06/01/2013 Panic disorder with agoraphobia [F40.01] 07/10/2013 Chronic fatigue fibromyalgia syndrome [R53.82, *07/12/2013 Marital conflict [Z63.0] 08/30/2013 07/11/2014 Blood pressure elevated without history of HTN *09/06/2014 Impaired glucose tolerance [R73.02] 09/06/2014 More... Ovarian cyst [N83.209] 09/24/2014 03/18/2015 SVT (supraventricular tachycardia) (HCC) [I47.1]09/27/2014 Delayed emergence from anesthesia [T88.59XA] 09/27/201409/25 On home oxygen therapy [Z99.81] 09/27/2014 12/13/2015 PTSD (post-traumatic stress disorder) [F43.10] 11/01/2014 Attention deficit hyperactivity disorder (ADHD)*11/08/2014 Recurrent major depressive disorder, in partial*07/09/2015 Encounter for screening mammogram for malignant*12/12/2015 0 11/09/2016 menopause age 43 [N95.1] Tobacco use [Z72.0] Postmenopausal HRT (hormone replacement therapy*12/13/2015 0 11/09/2016 Weight gain [R63.5] 10/19/2017 GERD without esophagitis [K21.9] 05/12/2017 More... Simple chronic bronchitis (HCC) [J41.0] 12/01/2017 More... Irritable bowel syndrome with diarrhea [K58.0] 12/14/2017 Systemic lupus erythematosus (HCC) [M32.9] 02/14/2018 Burning sensation of mouth [R20.8] 02/16/2018 Burning sensation of skin [R20.8] 02/16/2018 Sleep difficulties [G47.9] 02/16/2018 Mitral valve prolapse [I34.1] 02/23/2018 More... Screening for malignant neoplasm of the cervix *06/20/2018 Visit for pelvic exam [Z01.419] 06/20/2018 Encounter for screening mammogram for malignant*06/20/2018 Estrogen deficiency [E28.39] 06/20/2018 Adrenal adenoma, left [D35.02] 08/25/2018 More... Other instructions from your clinician: Acute Bronchitis What is acute bronchitis? Acute bronchitis is an infection of the bronchial (say: ?bra wn-prabhjot-ull?) tree. The bronchial tree is made up of the tubes that carry air into your lungs. When these tubes get infected, they swell and mucus ( thick fluid) forms inside them. This makes it hard for you to breathe. Yo u may cough up mucus and wheeze (make a whistling sound when you breathe). What causes acute bronchitis? Acute bronchitis is almost always caused by viruses that att ack the lining of the bronchial tree and cause infection. As your body figh ts back against these viruses, more swelling occurs and more mucus i s made. It takes time for your body to kill the viruses and heal the da mage to your bronchial tubes. In most cases, the same viruses that cause colds cause acute bronchitis. Research has shown that bacterial infection is a much less c ommon cause of bronchitis than we used to think. Very rarely, an infection caused by a fungus can cause acute bronchitis. How do people get acute bronchitis? The viruses that cause acute bronchitis are sprayed into the air or onto people?s hands when they cough. You can get acute bronchitis if you breathe in these viruses. You can also get it if you touch a hand that is coated with the viruses. If you smoke or are around damaging fumes (such as those in certain kinds of factories), you are more likely to get acute bronchitis a nd to have it longer. This is because your bronchial tree is already damag ed. How is acute bronchitis treated? Most cases of acute bronchitis will go away on their own aft er a few days or a week. It's a good idea to get plenty of rest, drink lot s of noncaffeinated fluids (for example, water and fruit juices) and increase the humidity in your environment. Because acute bronchitis is usually caused by viruses, antib iotics (medicines that kill bacteria) usually do not help. Even if you cough up mucus that is colored or thick, antibiotics probably won?t h elp you get better any faster. If you smoke, you should cut down on the number of cigarette s you smoke, or stop smoking altogether. This will help your bronchial tr ee heal faster. For some people with acute bronchitis, doctors prescribe med icines that are usually used to treat asthma. These medicines can help o pen the bronchial tubes and clear out mucus. They are usually given with an inhaler. An inhaler sprays the medicine right into the bronc hial tree. Your doctor will decide if this treatment is right for you. How long will the cough from acute bronchitis last? You should call your doctor if: You continue to wheeze and cough for more than 2 weeks, keturah cially at night or when you are active. You continue to cough for more than 2 weeks and sometimes deleon ve a bad-tasting fluid come up into your mouth. You have a cough, you feel very sick and weak, and you have a high fever that doesn?t go down. You cough up blood. You have trouble breathing when you lie down. Your feet swell. Sometimes the cough from acute bronchitis lasts for several weeks or months. Usually this happens because the bronchial tree is t aking a long time to heal. However, a cough that doesn?t go away may be a sign of another problem, like asthma or pneumonia. How can I keep from getting acute bronchitis again? One of the best ways to keep from getting acute bronchitis i s to wash your hands often to get rid of any viruses. If you smoke, the best defense against acute bronchitis is t o quit. Smoking damages your bronchial tree and makes it easier for viruses to cause infection. Smoking also slows down the healing, so it takes longer for you to get well. Reviewed/Updated: 05/01 Created: 08/24 This handout provides a general overview on this topic and m ay not apply to everyone. To find out if this handout applies to you and to get more information on this subject, talk to your family doctor. Copyright ? [id number] [employer] Permission is granted to print and photocopy this material f or nonprofit educational uses. Written permission is required for all other uses, including electronic uses. Flovent as directed. This is a steroid inhaler which takes a few days to be maximally effective. Wash the mouth piece after each use. If you have soreness in your tongue or throat or rash appears in these a reas, come in for examination. Carafate as directed. Notify if reflux not improving. Prescriptions ordered this encounter Disp Refills Start End SUCRALFATE 1 GRAM TABLET 40 t* 5 05/02/2019 Route: ORAL Sig: Take 1 tablet by mouth four times daily. FLUTICASONE PROPIONATE 44 MCG/ACTUAT* 1 In* 1 05/02/2019 Route: INHALATION Sig: Inhale 1 Puff as instructed twice daily. Encounter Status:Closed by Antonieta CEJA PA-C on 05/02/19 obsolete on 2019-03 OBSOLETE Refill (FAMPWS) Normal 04-20-2019 S[place] cort[place] GARZONJAZLYN Antonieta ([id number]) 1965 [facility] Time Provider Department ([id number]) 04/20/19 HUGO NAVA FAMPWS During your visit today, we recorded the following informati on about you: Jazlyn Garcia Ma 04/20/2019 4:44 PM Signed Patient has been identified by name and date of : Yes Pending Prescriptions Disp Refills CHLORTHALIDONE 25 MG TABLET 10 tablet 1 Sig: Take 1 tablet by mouth once daily as needed. FRANCESCO: No RX INSTRUCTIONS: Pharmacy initiated this request. No need to notify patient. Jazlyn Garcia Ma Allergies As of Date: 04/20/2019 Noted Allergy Reaction CODEINE 09/27/2014 8 - GI Upset 11 - Vomiting PERCOCET (OXYCODONE-ACETAMINOPHEN)07/17/2011 11 - Vomiting SOLUMEDROL (METHYLPREDNISOLONE SO*01/22/2014 1 - Mental Stat us Change Comments: Made her rageful VICODIN (HYDROCODONE-ACETAMINOPHE*07/17/2011 11 - Vomiting COMBIPATCH (ESTRADIOL-NORETHINDRO*10/26/2016 5 - Intolerance Comments: feels wired, muscles hurt, lips/mouth burn, feels like asthma flaring, nausea, dizziness. METFORMIN 10/28/2017 14 - Other: See Comments Comments: Myalgias. PEPCID (FAMOTIDINE (PF)) 07/07/2016 14 - Other: See Comments Comments: Dry eyes, mouth, rash, itching, anxiety TAPAZOLE (METHIMAZOLE) 10/14/2005 4 - Hives Date Reviewed: 04/05/2019 Reviewed by: Kalli Paige LPN - Fully Assessed Reason for Visit: Refill Request [94] Visit Diagnosis:Swelling [R60.9] Order(s):chlorthalidone (HYGROTON) 25 mg tabletTake 1 tablet by mouth once daily as needed.Disp: 10 tabletRfl: 1 Prescriptions as of 04/20/2019 Sig: CHLORTHALIDONE 25 MG TABLET Take 1 tablet by mouth once d* DOXYCYCLINE HYCLATE 100 MG TA* Take 1 tablet by mouth twice * HYOSCYAMINE 0.125 MG SUBLINGU* Take 1 tablet by mouth every * FLORAJEN3 460 MG (7.5-6-1.5 B* Take 1 capsule by mouth once * SYNTHROID 137 MCG TABLET take 1 tablet by mouth ON AN * SYNTHROID 125 MCG TABLET take 1 tablet by mouth once d* ESTRADIOL 0.0375 MG/24 HR WEE* Apply 1 Patch as directed one * Patient not taking: Reported on 03/31/2019 PROGESTERONE MICRONIZED 100 M* Take 1 capsule by mouth every * Patient not taking: Reported on 03/31/2019 LANCETS 28 GAUGE USE FOUR TIMES DAILY DIREC* BLOOD SUGAR DIAGNOSTIC STRIPS TEST four times a day BLOOD-GLUCOSE METER KIT 1 Each as needed. BLOOD-GLUCOSE METER KIT 1 Each as needed. Problem List As Of Date 04/20/2019 Noted Resolved Postablative hypothyroidism [E89.0] 04/06/2006 More... Excessive or frequent menstruation [N92.0] 01/05/20072011 Irregular menstrual cycle [N92.6] 01/05/2007 10/06/2011 Unspecified aftercare [Z51.89] 05/26/2011 10/06/2011 Abdominal pain, chronic, right upper quadrant [* 10/06/2011 Post-menopause [Z78.0] 10/21/2011 03/18/2015 More... URI (upper respiratory infection) [J06.9] 05/14/2013 015 More... Pneumonia [J18.9] 05/14/2013 07/11/2014 More... More... More... More... More... Adrenal disorder [E27.9] 05/24/2013 07/11/2014 hx of low vitamin D [E55.9] 06/01/2013 Panic disorder with agoraphobia [F40.01] 07/10/2013 Chronic fatigue fibromyalgia syndrome [R53.82, *07/12/2013 Marital conflict [Z63.0] 08/30/2013 07/11/2014 Blood pressure elevated without history of HTN *09/06/2014 Impaired glucose tolerance [R73.02] 09/06/2014 More... Ovarian cyst [N83.209] 09/24/2014 03/18/2015 SVT (supraventricular tachycardia) (HCC) [I47.1]09/27/2014 Delayed emergence from anesthesia [T88.59XA] 09/27/201409/25 On home oxygen therapy [Z99.81] 09/27/2014 12/13/2015 PTSD (post-traumatic stress disorder) [F43.10] 11/01/2014 Attention deficit hyperactivity disorder (ADHD)*11/08/2014 Recurrent major depressive disorder, in partial*07/09/2015 Encounter for screening mammogram for malignant*12/12/2015 0 11/09/2016 menopause age 43 [N95.1] Tobacco use [Z72.0] Postmenopausal HRT (hormone replacement therapy*12/13/2015 0 11/09/2016 Weight gain [R63.5] 10/19/2017 GERD without esophagitis [K21.9] 05/12/2017 More... Simple chronic bronchitis (HCC) [J41.0] 12/01/2017 More... Irritable bowel syndrome with diarrhea [K58.0] 12/14/2017 Systemic lupus erythematosus (HCC) [M32.9] 02/14/2018 Burning sensation of mouth [R20.8] 02/16/2018 Burning sensation of skin [R20.8] 02/16/2018 Sleep difficulties [G47.9] 02/16/2018 Mitral valve prolapse [I34.1] 02/23/2018 More... Screening for malignant neoplasm of the cervix *06/20/2018 Visit for pelvic exam [Z01.419] 06/20/2018 Encounter for screening mammogram for malignant*06/20/2018 Estrogen deficiency [E28.39] 06/20/2018 Adrenal adenoma, left [D35.02] 08/25/2018 More... Prescriptions ordered this encounter Disp Refills Start End CHLORTHALIDONE 25 MG TABLET 10 t* 1 04/20/2019 Route: ORAL Sig: Take 1 tablet by mouth once daily as needed. Medications Discontinued During This Encounter chlorthalidone (HYGROTON) 25 mg tabl* 10 t* 1 04/03/201903/27 Route: ORAL Sig: Take 1 tablet by mouth once daily as needed. Disc: Reason for discontinue is not on file. Encounter Status:Closed by HUGO NAVA MD on 04/20/19 progress on 2019-03 PROGRESS HNO ID: [id number] Normal 04-12-2019 [facility] Author: Ivy Cleary [place] ([id number]) Service: ? Author Type: Psychologist Type: Progress Notes Filed: 04/12/2019 10:36 AM Note Text: [facility] Progress Note Jazlyn Garzon 04/11/2019 [id number] Provider: Ivy Steele PSYD CPT Code: 80482 Psychotherapy 38-52 minutes Time: Approximately 45 minutes was spent in therapy. Parties Present: Patient Patient Presentation/Concerns: Jazlyn spoke about extreme frustration with the medical profes preston for being unable to diagnose and treat her issues. They are related to her hormons. She indicated that they make her unable to function (leave t he house, work, enjoy things, go places). She indicated being in pain all over. She has done a lot of research as well as trail and error on her medical issues. She states feeling frustrated and hopeless at times. She denied any suicidal thoughts. Mental Status: Mood: depressed Affect: mood-congruent Thoughts/Associations:goal directed Suicidal/Homicidal Ideation: None expressed or evidenced Other Observations: None Therapy Focus Mood/affect regulation MEDICATIONS: Per medical record: Current Outpatient Medications Medication Sig - doxycycline (VIBRA-TABS) 100 mg tablet Take 1 tablet by mo uth twice daily for 10 days. - hyoscyamine sublingual (LEVSIN SL) 0.125 mg subl Take 1 ta blet by mouth every 4 hours as needed (FOR CRAMPING). - chlorthalidone (HYGROTON) 25 mg tablet Take 1 tablet by mo uth once daily as needed. - L.acidoph-B.lactis-B.longum (FLORAJEN3) 460 mg (7.5-6- 1.5 bill. cell) cap Take 1 capsule by mouth once daily. - SYNTHROID 137 mcg tablet take 1 tablet by mouth ON AN EMPT Y STOMACH, EVERY WEDNESDAY AND WEDNESDAY - SYNTHROID 125 mcg tablet take 1 tablet by mouth once daily EXCEPT ON WEDNESDAY, TAKE 137 MCG - estradiol (CLIMARA) 0.0375 mg/24 hr Apply 1 Patch as direc geoff one time a week. (Patient not taking: Reported on 03/31/2019 ) - progesterone micronized (PROMETRIUM) 100 mg capsule Take 1 capsule by mouth every other day. TAKE WITH FOOD. (Patient not taking: Reported on 03/31/2019 ) - lancets (FREESTYLE LANCETS) 28 gauge misc USE FOUR TIMES D AILY DIRECTED - blood sugar diagnostic (FREESTYLE TEST) test strip TEST fo ur times a day - Blood-Glucose Meter (FREESTYLE LITE METER) monitoring kit 1 Each as needed. - Blood-Glucose Meter (FREESTYLE LITE METER) monitoring kit 1 Each as needed. No current facility-administered medications for this visit. Psychiatric Medication Issues: No change from previous appoi ntment DIAGNOSIS: MALA Treatment Modality/Interventions: Cognitive Behavioral TREATMENT ASSESSMENT/PROGRESS: Stable. indicated that she will try a new treatment after . The medical issues trigger a lot of anxiety and fear. TREATMENT PLAN/GOALS: Continue in therapy focusing on affect management. CBT for anxiety and coping. Next appointment: 2 weeks Ivy Steele PSYD wound culture/stain on 2019-04-05 Wound Culture/Stain Sp. Request/Comment: - Swab Cr itically 04-05-2019 Dixon Smear Result - Many Gram pos itive bacilli --> ABNORMAL ALERT Few --> ABNORMAL ALERT Gram negative bacilli --> ABNORMAL ALERT No Polymorphonuclear Leukocytes No Mononuclear cells Few Epithelial cells abnormal Clinic Culture Result - Rare Entero coccus faecalis --> ABNORMAL ALERT Cephalosporins, clindamycin, and TMP-SMX are not effective for the treatment of enterococcal infections. --> ABNORMAL ALERT No furthe Dixon r workup --> ABNORMAL ALERT Moderate Normal urogenital ishmael Best Practice Alert: Since genital sites are colonized with abundant normal ishmael, ordering a routine culture is not recommended. M[facility]cula (71925) r testing is the most sensit yocasta method to screen for a specific pathogen (eg, N.gonorrhoeae [GC], Chlamydia trachomatis [CT], Group B strep [GBPCR]). To evaluate patients with vaginitis, options include the Bacterial Vaginosis Sco red Gram Stain and Nancy Smear (BVCNSM), fungal screen culture (FUNGSC), Trichomonas EIA or NAAT (TRICHO or TRVAMP) or vaginal pathogens DNA probe (VAGDNA). See test direct ory for specimen collection instructions. Comment: Performed By: #### TSH #### [facility] [address] [place], [place] [address] progress on 2019-03 PROGRESS HNO ID: [id number] Normal 04-05-2019 [facility] Author: Ofe Randhawa) Yoel [place] ([id number]) Service: ? Author Type: Nurse Practitioner Type: Progress Notes Filed: 04/05/2019 1:01 PM Note Text: Jazlyn Garzon is a 53 year old female who presents for vagina l burning and odor for 2 week(s). Vaginal discharge: scant amount and white. Itching: Some Dyspareunia: No Fever/chills: No Abdominal pain: Yes, low pelvic pain/pressure Bladder: Negative for dysuria or frequency Bowel: No blood in stool, pain with BM, tarry stool, persist ent diarrhea or constipation Any new sexual partners or concern for STD exposure: No Are you currently taking any medications to treat vaginitis: Yes, finished metrogel and flagyl over the wkd Do you use feminine sprays, douches or deodorants: No Menstrual cycle: no menses - postmenopausal Past medical, surgical, social history, medications and monty rgies reviewed and updated. OBJECTIVE: Wt 198 lb 6.4 oz (90.0kg) LMP 03/10/2010 GENERAL: Well developed, well nourished in no appa rent distress ABDOMEN: soft, non-tender and no masses PELVIC: external genitalia normal, normal Bartholin's glands , urethra, Deltona's glands, no vulvar lesions, no cervical lesions, phys iologic discharge present, normal appearing perineal body and perian al region Slight uterus prolapse??? BIMANUAL: uterus normal size, shape and consistency, no adne xal masses and non-tender. RECTOVAGINAL: deferred. ASSESSMENT/PLAN: 1. Vaginal irritation - ICD9: 623.9, ICD10: N89.8 (primary d iagnosis) - WOUND CULTURE AND GRAM STAIN- if negative pt to schedule w [facility] 2. Pelvic pain in female - ICD9: 625.9, ICD10: R10.2 - CONSULT TO BRAID FOLDER PELVIC PAIN GIOVANNI Kent on 2019-04-05 CNOV Office Visit (WOOB) Normal 04-05-2019 [facility] JAZLYN GARZON ([id number]) 1965 [facility] Date Time Provider Department ([id number]) 04/05/19 9:00 AM OFE GARCIA (DHIRAJ) WOOB During your visit today, we recorded the following informati on about you: Blood pressure Weight 120/60 90 kg Ofe Garcia APRN.CNP 04/05/2019 1:01 PM Signed Jazlyn Garzon is a 53 year old female who presents for vaginal burning and odor for 2 week(s). Vaginal discharge: scant amount and white. Itching: Some Dyspareunia: No Fever/chills: No Abdominal pain: Yes, low pelvic pain/pressure Bladder: Negative for dysuria or frequency Bowel: No blood in stool, pain with BM, tarry stool, persi stent diarrhea or constipation Any new sexual partners or concern for STD exposure: No Are you currently taking any medications to treat vaginitis: Yes, finished metrogel and flagyl over the wkd Do you use feminine sprays, douches or deodorants: No Menstrual cycle: no menses - postmenopausal Past medical, surgical, social history, medications and allergies reviewed and updated. OBJECTIVE: Wt 198 lb 6.4 oz (90.0kg) LMP 03/10/2010 GENERAL: Well developed, well nourished in no appa rent distress ABDOMEN: soft, non-tender and no masses PELVIC: external genitalia normal, redd l Bartholin's glands, urethra, Deltona's glands, no vulvar lesions, no cervical l esions, physiologic discharge present, normal appearing perineal body and perianal region Slight uterus prolapse??? BIMANUAL: uterus normal size, shape and consistency, no adne xal masses and non-tender. RECTOVAGINAL: deferred. ASSESSMENT/PLAN: 1. Vaginal irritation - ICD9: 623.9, ICD10: N89.8 (primary d iagnosis) - WOUND CULTURE AND GRAM STAIN- if negative pt to schedule with pelvic pain clinic 2. Pelvic pain in female - ICD9: 625.9, ICD10: R10.2 - CONSULT TO BRAID FOLDER PELVIC PAIN Ofe Garcia APRN.PULLEY MAN Referring Provider: SELF [200] Allergies As of Date: 04/05/2019 Noted Allergy Reaction CODEINE 09/27/2014 8 - GI Upset 11 - Vomiting PERCOCET (OXYCODONE-ACETAMINOPHEN)07/17/2011 11 - Vomiting SOLUMEDROL (METHYLPREDNISOLONE SO*01/22/2014 1 - Mental Stat us Change Comments: Made her rageful VICODIN (HYDROCODONE-ACETAMINOPHE*07/17/2011 11 - Vomiting COMBIPATCH (ESTRADIOL-NORETHINDRO*10/26/2016 5 - Intolerance Comments: feels wired, muscles hurt, lips/mouth burn, feels like asthma flaring, nausea, dizziness. METFORMIN 10/28/2017 14 - Other: See Comments Comments: Myalgias. PEPCID (FAMOTIDINE (PF)) 07/07/2016 14 - Other: See Comments Comments: Dry eyes, mouth, rash, itching, anxiety TAPAZOLE (METHIMAZOLE) 10/14/2005 4 - Hives Date Reviewed: 04/05/2019 Reviewed by: Kalli Paige LPN - Fully Assessed Reason for Visit: Discussion [813] Cmt: cramping,vaginal dishcarge and burning Primary Visit Diagnosis:Vaginal irritation [N89.8] Other Visit Diagnosis:Pelvic pain in female [R10.2] Order(s):WOUND CULTURE AND GRAM STAIN [SQWCUL] Order #: [id number] CONSULT TO BRAID FOLDER PELVIC PAIN [[id number]] Order #: [id number]: 1 FUTURE Prescriptions as of 04/05/2019 Sig: HYOSCYAMINE 0.125 MG SUBLINGU* Take 1 tablet by mouth every * CHLORTHALIDONE 25 MG TABLET Take 1 tablet by mouth once d* FLORAJEN3 460 MG (7.5-6-1.5 B* Take 1 capsule by mouth once * SYNTHROID 137 MCG TABLET take 1 tablet by mouth ON AN * SYNTHROID 125 MCG TABLET take 1 tablet by mouth once d* ESTRADIOL 0.0375 MG/24 HR WEE* Apply 1 Patch as directed one * Patient not taking: Reported on 03/31/2019 PROGESTERONE MICRONIZED 100 M* Take 1 capsule by mouth every * Patient not taking: Reported on 03/31/2019 LANCETS 28 GAUGE USE FOUR TIMES DAILY DIREC* BLOOD SUGAR DIAGNOSTIC STRIPS TEST four times a day BLOOD-GLUCOSE METER KIT 1 Each as needed. BLOOD-GLUCOSE METER KIT 1 Each as needed. Problem List As Of Date 04/05/2019 Noted Resolved Postablative hypothyroidism [E89.0] 04/06/2006 More... Excessive or frequent menstruation [N92.0] 01/05/20072011 Irregular menstrual cycle [N92.6] 01/05/2007 10/06/2011 Unspecified aftercare [Z51.89] 05/26/2011 10/06/2011 Abdominal pain, chronic, right upper quadrant [* 10/06/2011 Post-menopause [Z78.0] 10/21/2011 03/18/2015 More... URI (upper respiratory infection) [J06.9] 05/14/2013 015 More... Pneumonia [J18.9] 05/14/2013 07/11/2014 More... More... More... More... More... Adrenal disorder [E27.9] 05/24/2013 07/11/2014 hx of low vitamin D [E55.9] 06/01/2013 Panic disorder with agoraphobia [F40.01] 07/10/2013 Chronic fatigue fibromyalgia syndrome [R53.82, *07/12/2013 Marital conflict [Z63.0] 08/30/2013 07/11/2014 Blood pressure elevated without history of HTN *09/06/2014 Impaired glucose tolerance [R73.02] 09/06/2014 More... Ovarian cyst [N83.209] 09/24/2014 03/18/2015 SVT (supraventricular tachycardia) (HCC) [I47.1]09/27/2014 Delayed emergence from anesthesia [T88.59XA] 09/27/201409/25 On home oxygen therapy [Z99.81] 09/27/2014 12/13/2015 PTSD (post-traumatic stress disorder) [F43.10] 11/01/2014 Attention deficit hyperactivity disorder (ADHD)*11/08/2014 Recurrent major depressive disorder, in partial*07/09/2015 Encounter for screening mammogram for malignant*12/12/2015 0 11/09/2016 menopause age 43 [N95.1] Tobacco use [Z72.0] Postmenopausal HRT (hormone replacement therapy*12/13/2015 0 11/09/2016 Weight gain [R63.5] 10/19/2017 GERD without esophagitis [K21.9] 05/12/2017 More... Simple chronic bronchitis (HCC) [J41.0] 12/01/2017 More... Irritable bowel syndrome with diarrhea [K58.0] 12/14/2017 Systemic lupus erythematosus (HCC) [M32.9] 02/14/2018 Burning sensation of mouth [R20.8] 02/16/2018 Burning sensation of skin [R20.8] 02/16/2018 Sleep difficulties [G47.9] 02/16/2018 Mitral valve prolapse [I34.1] 02/23/2018 More... Screening for malignant neoplasm of the cervix *06/20/2018 Visit for pelvic exam [Z01.419] 06/20/2018 Encounter for screening mammogram for malignant*06/20/2018 Estrogen deficiency [E28.39] 06/20/2018 Adrenal adenoma, left [D35.02] 08/25/2018 More... Encounter Status:Closed by OFE GARCIA on 04/05/19 progress on 2019-03 PROGRESS HNO ID: [id number] Normal 04-03-2019 [facility] Author: Antonieta Esqueda (Pa-C) Marcial Dixon ([id number]) Service: ? Author Type: Physician Digestion Operator Type: Progress Notes Filed: 04/03/2019 7:18 PM Note Text: BP 138/82 Pulse 84 Temp 36.9 ?C (98.4 ?F) (Tympanic) R neftali 16 LMP 03/10/2010 This Team Access Model visit is a walk in encounter. It requ ired patient-provider interaction for the medical decision making as documented below. 53 year old female with c/o skin burning everywhere. Was doi ng well. Now worse. Abdominal cramps, squeezing over whole body. Face Leyva ds and feet are swelling. Started after progesterone was added to estrog en. Swelling hasn't really gone away. Estrogen has really helped. Went to ED 03/31/19 palpitations and heart racing. No chest p ain. In ED BP 191/90- 128. EKG ST vr 124. Labs WBC 12.3, hgb 15.5. K 3.4, glu 162. BUN 10, CR 1.00. troponin < 0.015, TSH 2.09. d-dimer 2.03CT abd/ pel WNL. Reflux is causing a lot of problems. Has EGD scheduled. Severe uterine cramps, through whole abdomen and even in to shoulders. Denies change in appetite, nausea, vomiting, constipation, d iarrhea, rectal bleeding, hemorrhoids, urinary difficulty, pain or bu rning, black or tarry stools. Everything gets better with unopposed estrogen. Wants to domitila k with endo who agreed she should resume. HISTORIES FAMILY HISTORY Problem Relation Age of Onset - Diabetes Mother Type 2 stroke - Colon Cancer Father age 64 [place] - Diabetes Father Type 2 - Hypertension Father - Coronary Artery Disease Father Hx of [place] - Thyroid Sister hx of parathyroid disease/ hx of fibroids - other (healthy) Brother - other (healthy) Brother - Allergies Daughter - other (healthy) Daughter - other (healthy) Son - other (healthy) Son - other (healthy) Son - other (healthy) Son - Colon Cancer Paternal Aunt x5 - Colon Cancer Paternal Uncle x8 PAST MEDICAL HISTORY Diagnosis Date - Abdominal pain, chronic, right upper quadrant - Asthma As a baby, then I outgrew it. - Cystocele, midline 05/13/2009 - Delayed emergence from anesthesia 09/27/2014 - Depression - Excessive or frequent menstruation Heavy periods - HSDD 10/21/2011 - Hypothyroidism should be on FRANCESCO synthroid. - Irregular menstrual cycle Irregular periods - menopause age 43 2009 in 2013 FSH 47 - Moderate dysplasia of cervix 2001 - Parent-child conflict 03/07/2013 - PMH - PAST MEDICAL HISTORY OF thyroid ablation/hypothyroid - Postmenopausal HRT (hormone replacement therapy) 12/13/2015 in 2014 took femHRT cried 11/2015 offer climara/prometrium - Rectocele 05/13/2009 - SVT (supraventricular tachycardia) (HCC) - Syncope 05/14/2013 -Reported that she had one episode of syncope at the OSH. -H ad the episode when she stood up. -No urinary incontinence or jerki ng movements. -Never had syncope episode before. -Last Echo stress test fo r her chest pain was in 2011 (normal) Plan: -Repeat the Echo: normal - T he left ventricle is normal in size. Left ventricular systolic funct ion is normal. EF = 63 ? 5% (2D biplane) - The right ventricle is normal in size. Right ventricular systolic function is normal. - There are no sign ificant valvular abnormalities. - Prior echocardiogram performed on 11/10/11 (stress echo). No significant change. - Tele - Tobacco use - Weight gain PAST SURGICAL HISTORY Procedure Laterality Date - CERVIX UTERI CONIZA LP ELCTRO EXCI 2001 LEEP-Cervix - COLONOSCOPY 04/2017 says nl - EGD W/O OR W/BRUSH/WASH 01/22/2014,2009 EGD - LAPAROSCOPIC CHOLEYCYSTECTOMY 05/19/2011 - LIGATE FALLOPIAN TUBE 2003 Tubal ligation - PAST SURGICAL HISTORY OF 1998 tubal - PAST SURGICAL HISTORY OF 2001 thyroid ablation - REMOVAL OF OVARY(S) 09/2014 laparoscopic left, CW, umbilical/upper abdominal adhesions s een benign Social History Tobacco Use - Smoking status: Current Every Day Smoker Packs/day: 0.50 Types: Cigarettes Start date: 1985 - Smokeless tobacco: Never Used - Tobacco comment: Has quit intermittently, And I'm working on it now. 1st AM cigarette 10-15 minutes after awake. Most desired is that one, or last of day before bed. Prior 8 month quits, resumed after p regnancies completed. TO Substance Use Topics - Alcohol use: No - Drug use: No ACTIVE PROBLEM LIST Postablative Hypothyroidism hx of low vitamin D Panic Disorder With Agoraphobia Chronic Fatigue Fibromyalgia Syndrome Blood Pressure Elevated Without History of Htn Impaired Glucose Tolerance Svt (Supraventricular Tachycardia) (Hcc) Ptsd (Post-Traumatic Stress Disorder) Attention Deficit Hyperactivity Disorder (Adhd), Combined Ty pe Recurrent Major Depressive Disorder, in Partial Remission (H cc) menopause age 43 Tobacco Use Gerd Without Esophagitis Simple Chronic Bronchitis (Hcc) Irritable Bowel Syndrome With Diarrhea Systemic Lupus Erythematosus (Hcc) Burning Sensation of Mouth Burning Sensation of Skin Sleep Difficulties Mitral Valve Prolapse Screening for Malignant Neoplasm of The Cervix Visit for Pelvic Exam Encounter for Screening Mammogram for Malignant Neoplasm of Breast Estrogen Deficiency Adrenal Adenoma, Left TWO PNEUMOVAX 5 YEARS APART PRIOR TO AGE 65(1) due on 1984 ADULT PREVNAR-13 due on 1984 MAMMOGRAM EVERY 2 YEARS due on 02/24/2019 EXAM: BP 138/82 Pulse 84 Temp 36.9 ?C (98.4 ?F) (Tympanic) R neftali 16 LMP 03/10/2010 Pleasant adult woman, appears fatigued, in no acute distress . Alert and oriented all spheres. Normal affect and cognition. Speech no rmal. No deficits to learning or comprehension. Skin warm, dry, pink to lips and nailbeds. Normal turgor tho ugh face, hands puffy. Respirations regular and unlabored. HEENT WNL. TM's clear. Nose and oropharynx free from injecti on or lesion. No cervical lymph nodes. Thyroid non-tender, no masses Chest CTA. HRRR without murmur or gallop. Abdomen: active bowel sounds throughout, soft, nontender, no masses or organomegaly. No CVAT. Extrem: no clubbing or cyanosis. Edema: none. Extremities ar e warm and pink with prompt capillary refill. ASSESSMENT/PLAN: 1. Sinus tachycardia - ICD9: 427.89, ICD10: R00.0 (primary d iagnosis) Hx SVT. Resolved with no cardiac component identified. 2. Uterine cramping - ICD9: 625.8, ICD10: N94.89 Follow up with BRAID FOLDER or Endo to discuss risk of unopposed estr ogen and possible treatment - HYOSCYAMINE 0.125 MG SUBLINGUAL TABLET 3. Swelling - ICD9: 782.3, ICD10: R60.9 Use diuretic prn sparingly. - CHLORTHALIDONE 25 MG TABLET 4. Hormone disturbance - ICD9: 259.9, ICD10: E34.9 As above M Dheeraj Ceja PA-C cnov on 2019-04-03 CNOV Office Visit (FAMPWS) Normal 04-03-20 19 [place] JAZLYN GARZON ([id number]) 1965 F [place] Date Time Provider Department ([id number]) 04/03/19 11:20 AM Antonieta CEJA) CATHERINEPWS During your visit today, we recorded the following informati on about you: Temperature Pulse Respiration Blood pressure 98.4 degrees 84/minute 16/minute 138/82 M Dheeraj Ceja PA-C 04/03/2019 7:18 PM Signed BP 138/82 Pulse 84 Temp 36.9 ?C (98.4 ?F) (Tympanic) R neftali 16 LMP 03/10/2010 This Team Access Model visit is a walk in encounter. It requ ired patient-provider interaction for the medical decision making as documented below. 53 year old female with c/o skin burning everywhere. Was doing well. Now worse. Abdominal cramps, squeezing over whole b adela. Face Hands and feet are swelling. Started after progesterone was added to estrogen . Swelling hasn't really gone away. Estrogen has really helped. Went to ED 03/31/19 palpitations and heart racing. No chest p ain. In ED BP 191/90- 128. EKG ST vr 124. Labs WBC 12.3, hgb 15.5. K 3.4, glu 162. BUN 10, CR 1.00. troponin < 0.015, TSH 2.09. d-dimer 2.03CT abd/ pel WNL. Reflux is causing a lot of problems. Has EGD scheduled. Severe uterine cramps, through whole abdomen and even in to shoulders. Denies change in appetite, nausea, vomiting, co nstipation, diarrhea, rectal bleeding, hemorrhoids, urinary difficulty, pain or burning, black or t arry stools. Everything gets better with unopposed estrogen. Wants to t alk with endo who agreed she should resume. HISTORIES FAMILY HISTORY Problem Relation Age of Onset - Diabetes Mother Type 2 stroke - Colon Cancer Father age 64 [place] - Diabetes Father Type 2 - Hypertension Father - Coronary Artery Disease Father Hx of [place] - Thyroid Sister hx of parathyroid disease/ hx of fibroids - other (healthy) Brother - other (healthy) Brother - Allergies Daughter - other (healthy) Daughter - other (healthy) Son - other (healthy) Son - other (healthy) Son - other (healthy) Son - Colon Cancer Paternal Aunt x5 - Colon Cancer Paternal Uncle x8 PAST MEDICAL HISTORY Diagnosis Date - Abdominal pain, chronic, right upper quadrant - Asthma As a baby, then I outgrew it. - Cystocele, midline 05/13/2009 - Delayed emergence from anesthesia 09/27/2014 - Depression - Excessive or frequent menstruation Heavy periods - HSDD 10/21/2011 - Hypothyroidism should be on FRANCESCO synthroid. - Irregular menstrual cycle Irregular periods - menopause age 43 2009 in 2012 FSH 47 - Moderate dysplasia of cervix 2001 - Parent-child conflict 03/07/2013 - PMH - PAST MEDICAL HISTORY OF thyroid ablation/hypothyroid - Postmenopausal HRT (hormone replacement therapy) 12/13/2015 in 2014 took femHRT cried 11/2015 offer climara/prometrium - Rectocele 05/13/2009 - SVT (supraventricular tachycardia) (HCC) - Syncope 05/14/2013 -Reported that she had one episode of syncope at the OSH. -H ad the episode when she stood up. -No urinary incontinence or jerking movements. -Never had syncope episode before. -Last Echo stress test f or her chest pain was in 2011 (normal) Plan: -Repeat the Echo: normal - The left ventricle is normal in size. Left ventricular systo lic function is normal. EF = 63 ? 5% (2D biplane) - The right ventricle is normal in size. Right joel tricular systolic function is normal. - There are no significant valvular abnormalities. - Prior echocardiogram performed on 11/10/11 (stress echo). No significant change. - Tele - Tobacco use - Weight gain PAST SURGICAL HISTORY Procedure Laterality Date - CERVIX UTERI CONIZA LP ELCTRO EXCI 2001 LEEP-Cervix - COLONOSCOPY 04/2017 says nl - EGD W/O OR W/BRUSH/WASH 01/22/2014,2009 EGD - LAPAROSCOPIC CHOLEYCYSTECTOMY 05/19/2011 - LIGATE FALLOPIAN TUBE 2003 Tubal ligation - PAST SURGICAL HISTORY OF 1998 tubal - PAST SURGICAL HISTORY OF 2001 thyroid ablation - REMOVAL OF OVARY(S) 09/2014 laparoscopic left, CW, umbilical/upper abdominal adhesions s een benign Social History Tobacco Use - Smoking status: Current Every Day Smoker Packs/day: 0.50 Types: Cigarettes Start date: 1985 - Smokeless tobacco: Never Used - Tobacco comment: Has quit intermittently, And I'm working on it now. 1st AM cigarette 10-15 minutes after awake. Most desire d is that one, or last of day before bed. Prior 8 month quits, resumed after pregnancies c ompleted. TO Substance Use Topics - Alcohol use: No - Drug use: No ACTIVE PROBLEM LIST Postablative Hypothyroidism hx of low vitamin D Panic Disorder With Agoraphobia Chronic Fatigue Fibromyalgia Syndrome Blood Pressure Elevated Without History of Htn Impaired Glucose Tolerance Svt (Supraventricular Tachycardia) (Hcc) Ptsd (Post-Traumatic Stress Disorder) Attention Deficit Hyperactivity Disorder (Adhd), Combined Ty pe Recurrent Major Depressive Disorder, in Partial Remission (H cc) menopause age 43 Tobacco Use Gerd Without Esophagitis Simple Chronic Bronchitis (Hcc) Irritable Bowel Syndrome With Diarrhea Systemic Lupus Erythematosus (Hcc) Burning Sensation of Mouth Burning Sensation of Skin Sleep Difficulties Mitral Valve Prolapse Screening for Malignant Neoplasm of The Cervix Visit for Pelvic Exam Encounter for Screening Mammogram for Malignant Neoplasm of Breast Estrogen Deficiency Adrenal Adenoma, Left TWO PNEUMOVAX 5 YEARS APART PRIOR TO AGE 65(1) due on 1984 ADULT PREVNAR-13 due on 1984 MAMMOGRAM EVERY 2 YEARS due on 02/24/2019 EXAM: BP 138/82 Pulse 84 Temp 36.9 ?C (98.4 ?F) (Tympanic) R neftali 16 LMP 03/10/2010 Pleasant adult woman, appears fatigued, in no acute distress . Alert and oriented all spheres. Normal affect and cognitio n. Speech normal. No deficits to learning or comprehension. Skin warm, dry, pink to lips and nailbeds. Normal turgor t ricki face, hands puffy. Respirations regular and unlabored. HEENT WNL. TM's clear. Nose and oropharynx free from i njection or lesion. No cervical lymph nodes. Thyroid non-tender, no masses Chest CTA. HRRR without murmur or gallop. Abdomen: active bowel sounds throughout, soft, nontender, no masses or organomegaly. No CVAT. Extrem: no clubbing or cyanosis. Edema: none. Extremities are warm and pink with prompt capillary refill. ASSESSMENT/PLAN: 1. Sinus tachycardia - ICD9: 427.89, ICD10: R00.0 (primary d iagnosis) Hx SVT. Resolved with no cardiac component identified. 2. Uterine cramping - ICD9: 625.8, ICD10: N94.89 Follow up with BRAID FOLDER or Endo to discuss risk of un opposed estrogen and possible treatment - HYOSCYAMINE 0.125 MG SUBLINGUAL TABLET 3. Swelling - ICD9: 782.3, ICD10: R60.9 Use diuretic prn sparingly. - CHLORTHALIDONE 25 MG TABLET 4. Hormone disturbance - ICD9: 259.9, ICD10: E34.9 As above M Dheeraj Ceja PA-C Referring Provider: SELF [[id number]] Allergies As of Date: 04/03/2019 Noted Allergy Reaction CODEINE 09/27/2014 8 - GI Upset 11 - Vomiting PERCOCET (OXYCODONE-ACETAMINOPHEN)07/17/2011 11 - Vomiting SOLUMEDROL (METHYLPREDNISOLONE SO*01/22/2014 1 - Mental Stat us Change Comments: Made her rageful VICODIN (HYDROCODONE-ACETAMINOPHE*07/17/2011 11 - Vomiting COMBIPATCH (ESTRADIOL-NORETHINDRO*10/26/2016 5 - Intolerance Comments: feels wired, muscles hurt, lips/mouth burn, feels like asthma flaring, nausea, dizziness. METFORMIN 10/28/2017 14 - Other: See Comments Comments: Myalgias. PEPCID (FAMOTIDINE (PF)) 07/07/2016 14 - Other: See Comments Comments: Dry eyes, mouth, rash, itching, anxiety TAPAZOLE (METHIMAZOLE) 10/14/2005 4 - Hives Date Reviewed: 04/03/2019 Reviewed by: Sandra Hackett LPN - Fully Assessed Reason for Visit: elevated heart rate [Other] Derm Problem [33] Cmt: feels like is on fire Abdominal Pain [1] Cmt: CT scan was negative ER F/U [41] Cmt: [facility] ER follow up 03/31/19 Reason For Visit History Recorded Primary Visit Diagnosis:Sinus tachycardia [R00.0] Other Visit Diagnoses:Uterine cramping [N94.89] Swelling [R60.9] Hormone disturbance [E34.9] GERD without esophagitis [K21.9] Postablative hypothyroidism [E89.0] Order(s):hyoscyamine sublingual (LEVSIN SL) 0.125 mg sublTak e 1 tablet by mouth every 4 hours as needed (FOR CRAMPING).Disp: 20 tablet Rfl: 0 chlorthalidone (HYGROTON) 25 mg tabletTake 1 tablet by mouth once daily as needed.Disp: 10 tabletRfl: 1 Prescriptions as of 04/03/2019 Sig: FLORAJEN3 460 MG (7.5-6-1.5 B* Take 1 capsule by mouth once * SYNTHROID 137 MCG TABLET take 1 tablet by mouth ON AN * SYNTHROID 125 MCG TABLET take 1 tablet by mouth once d* HYOSCYAMINE 0.125 MG SUBLINGU* Take 1 tablet by mouth every * CHLORTHALIDONE 25 MG TABLET Take 1 tablet by mouth once d* ESTRADIOL 0.0375 MG/24 HR WEE* Apply 1 Patch as directed one * Patient not taking: Reported on 03/31/2019 PROGESTERONE MICRONIZED 100 M* Take 1 capsule by mouth every * Patient not taking: Reported on 03/31/2019 LANCETS 28 GAUGE USE FOUR TIMES DAILY DIREC* BLOOD SUGAR DIAGNOSTIC STRIPS TEST four times a day BLOOD-GLUCOSE METER KIT 1 Each as needed. BLOOD-GLUCOSE METER KIT 1 Each as needed. Problem List As Of Date 04/03/2019 Noted Resolved Postablative hypothyroidism [E89.0] 04/06/2006 More... Excessive or frequent menstruation [N92.0] 01/05/20072011 Irregular menstrual cycle [N92.6] 01/05/2007 10/06/2011 Unspecified aftercare [Z51.89] 05/26/2011 10/06/2011 Abdominal pain, chronic, right upper quadrant [* 10/06/2011 Post-menopause [Z78.0] 10/21/2011 03/18/2015 More... URI (upper respiratory infection) [J06.9] 05/14/2013 015 More... Pneumonia [J18.9] 05/14/2013 07/11/2014 More... More... More... More... More... Adrenal disorder [E27.9] 05/24/2013 07/11/2014 hx of low vitamin D [E55.9] 06/01/2013 Panic disorder with agoraphobia [F40.01] 07/10/2013 Chronic fatigue fibromyalgia syndrome [R53.82, *07/12/2013 Marital conflict [Z63.0] 08/30/2013 07/11/2014 Blood pressure elevated without history of HTN *09/06/2014 Impaired glucose tolerance [R73.02] 09/06/2014 More... Ovarian cyst [N83.209] 09/24/2014 03/18/2015 SVT (supraventricular tachycardia) (HCC) [I47.1]09/27/2014 Delayed emergence from anesthesia [T88.59XA] 09/27/201409/25 On home oxygen therapy [Z99.81] 09/27/2014 12/13/2015 PTSD (post-traumatic stress disorder) [F43.10] 11/01/2014 Attention deficit hyperactivity disorder (ADHD)*11/08/2014 Recurrent major depressive disorder, in partial*07/09/2015 Encounter for screening mammogram for malignant*12/12/2015 0 11/09/2016 menopause age 43 [N95.1] Tobacco use [Z72.0] Postmenopausal HRT (hormone replacement therapy*12/13/2015 0 11/09/2016 Weight gain [R63.5] 10/19/2017 GERD without esophagitis [K21.9] 05/12/2017 More... Simple chronic bronchitis (HCC) [J41.0] 12/01/2017 More... Irritable bowel syndrome with diarrhea [K58.0] 12/14/2017 Systemic lupus erythematosus (HCC) [M32.9] 02/14/2018 Burning sensation of mouth [R20.8] 02/16/2018 Burning sensation of skin [R20.8] 02/16/2018 Sleep difficulties [G47.9] 02/16/2018 Mitral valve prolapse [I34.1] 02/23/2018 More... Screening for malignant neoplasm of the cervix *06/20/2018 Visit for pelvic exam [Z01.419] 06/20/2018 Encounter for screening mammogram for malignant*06/20/2018 Estrogen deficiency [E28.39] 06/20/2018 Adrenal adenoma, left [D35.02] 08/25/2018 More... Prescriptions ordered this encounter Disp Refills Start End HYOSCYAMINE 0.125 MG SUBLINGUAL TABL* 20 t* 0 04/03/2019 Route: ORAL Sig: Take 1 tablet by mouth every 4 hours as needed (FOR GATE WATCH[employer] MPING). CHLORTHALIDONE 25 MG TABLET 10 t* 1 04/03/2019 Route: ORAL Sig: Take 1 tablet by mouth once daily as needed. Medications Discontinued During This Encounter metroNIDAZOLE (METROGEL VAGINAL) 0.7* 70 g 0 03/22/201904/03 Route: VAGINAL Sig: Use 1 Applicatorful vaginally daily at bedtime. Disc: Reason for discontinue is not on file. Encounter Status:Closed by Antonieta CEJA PA-C on 04/03/19 trichomonas prep on 2019-03-31 Trichomonas Prep Sp. Request/Comment: - Swab Redd l 03-31-2019 [facility] Smear Result - Negative for Trichomonas vaginalis antigen This test was developed and its performance characteristics determined by [facility]'s [facility] [place] ([id number]) [place] ([facility]). It has not been cleared or approved by the FDA. [facility] is regulated under CLIA as qualified to perform high complexity testing. This test is used for clinical purposes. It should not be regarded as investigational or for research. Comment: Performed By: #### TFTEST ## ## [facility] [address] [place] [address] [place] [address] progress on 2019-03 PROGRESS HNO ID: [id number] Normal 03-31-2019 [place] Author: Mireya Benz) [facility] Service: ? [place] Author Type: Coffee Grinder ([id number]) Type: Progress Notes Filed: 04/04/2019 10:42 PM Note Text: Jazlyn Garzon is a 53 year old female who presents for proble m visit with pelvic pain. HPI:Patient seen today as walk in visit with multiple compla ints. Has history of bacterial vaginosis. Seen and prescri bed metrogel, started 3 days ago. Estrogel from PCP started for a few week s then started progesterone. Took this and got systemic swelling. Advised t o stop both estrogen and progesterone. Was offered estrogen patches with progesterone tablets every other day. Was not supposed to start anything until swelling decreased, this was 6 days ago. This was per patient in offi ce today. She states she has seen multiple providers. She take unopposed e strogen at times. Complaint of pain in pelvis, legs, lower legs, rating pain 6 -10/10, states pain is cramping like pitocin. Comes and goes. This pain s tarted 3 days ago but it has increased today. 2009 was last menses, postme nopausal. Left ovary removed. Denies any vaginal bleeding or spotting. Admi ts to vaginal discharge, white, no odor. Not sexually active but would be ok with STD testing today. Pelvic pressure and feels like something is d ropping. Constipation at times. No diarrhea. No burning with urinatio n, urgency or frequency. She has issues tolerating progesterone. She states she has t alked with other providers that have instructed her to induce a menses even though she is postmenopausal but she did not want to do this. She s tates all of her problems began with the removal of her left ovary in . She feels all of her symptoms come from the removal of this ovary, how ever, she is unsure if it all needs to come out. Patient became upset when I started to ask questions about h istory of hormone replacement. Upon visit today she started to talk ab out hormone replacement but then states this was not why she was here an d did not need me to discuss this with her. I asked patient what visit was about today, as this was a walk in appointment for an urgent concern but she has multiple complaints about many organ systems, chronic issues and concerns with seeing many providers for hormone replacement and she is not a typical case and very complicated. Presents with multiple acute and chronic complaints and I wa s unsure at visit what patient was wanting addressed today. Patient omar tuttle goes from one topic to the next and becomes upset when asking question s about complaints, history, and providers seen in the past. I lona gized to patient and stated that I would not be able to address all o f her concerns today. I would address the pelvic pain and vaginal discharge and would be happy to see her for a follow up appointment at a scheduled visit. PAST MEDICAL HISTORY Diagnosis Date - Abdominal pain, chronic, right upper quadrant - Asthma As a baby, then I outgrew it. - Cystocele, midline 05/13/2009 - Delayed emergence from anesthesia 09/27/2014 - Depression - Excessive or frequent menstruation Heavy periods - HSDD 10/21/2011 - Hypothyroidism should be on FRANCESCO synthroid. - Irregular menstrual cycle Irregular periods - menopause age 43 2009 in 2013 FSH 47 - Moderate dysplasia of cervix 2001 - Parent-child conflict 03/07/2013 - PMH - PAST MEDICAL HISTORY OF thyroid ablation/hypothyroid - Postmenopausal HRT (hormone replacement therapy) 12/13/2015 in 2014 took femHRT cried 11/2015 offer climara/prometrium - Rectocele 05/13/2009 - SVT (supraventricular tachycardia) (HCC) - Syncope 05/14/2013 -Reported that she had one episode of syncope at the OSH. -H ad the episode when she stood up. -No urinary incontinence or jerki ng movements. -Never had syncope episode before. -Last Echo stress test fo r her chest pain was in 2011 (normal) Plan: -Repeat the Echo: normal - T he left ventricle is normal in size. Left ventricular systolic funct ion is normal. EF = 63 ? 5% (2D biplane) - The right ventricle is normal in size. Right ventricular systolic function is normal. - There are no sign ificant valvular abnormalities. - Prior echocardiogram performed on 11/10/11 (stress echo). No significant change. - Tele - Tobacco use - Weight gain PAST SURGICAL HISTORY Procedure Laterality Date - CERVIX UTERI CONIZA LP ELCTRO EXCI 2001 LEEP-Cervix - COLONOSCOPY 04/2017 says nl - EGD W/O OR W/BRUSH/WASH 01/22/2014,2009 EGD - LAPAROSCOPIC CHOLEYCYSTECTOMY 05/19/2011 - LIGATE FALLOPIAN TUBE 2003 Tubal ligation - PAST SURGICAL HISTORY OF 1998 tubal - PAST SURGICAL HISTORY OF 2001 thyroid ablation - REMOVAL OF OVARY(S) 09/2014 laparoscopic left, CW, umbilical/upper abdominal adhesions s een benign FAMILY HISTORY Problem Relation Age of Onset - Diabetes Mother Type 2 stroke - Colon Cancer Father age 64 [place] - Diabetes Father Type 2 - Hypertension Father - Coronary Artery Disease Father Hx of [place] - Thyroid Sister hx of parathyroid disease/ hx of fibroids - other (healthy) Brother - other (healthy) Brother - Allergies Daughter - other (healthy) Daughter - other (healthy) Son - other (healthy) Son - other (healthy) Son - other (healthy) Son - Colon Cancer Paternal Aunt x5 - Colon Cancer Paternal Uncle x8 Social History Tobacco Use - Smoking status: Current Every Day Smoker Packs/day: 0.50 Types: Cigarettes Start date: 1985 - Smokeless tobacco: Never Used - Tobacco comment: Has quit intermittently, And I'm working on it now. 1st AM cigarette 10-15 minutes after awake. Most desired is that one, or last of day before bed. Prior 8 month quits, resumed after p regbuddy completed. TO Substance Use Topics - Alcohol use: No - Drug use: No Current Outpatient Medications Medication Sig - SYNTHROID 137 mcg tablet take 1 tablet by mouth ON AN EMPT Y STOMACH, EVERY WEDNESDAY AND WEDNESDAY - SYNTHROID 125 mcg tablet take 1 tablet by mouth once daily EXCEPT ON WEDNESDAY, TAKE 137 MCG - metroNIDAZOLE (METROGEL VAGINAL) 0.75 % Vaginal Gel Use 1 Applicatorful vaginally daily at bedtime. - lancets (FREESTYLE LANCETS) 28 gauge misc USE FOUR TIMES D AILY DIRECTED - blood sugar diagnostic (FREESTYLE TEST) test strip TEST fo ur times a day - Blood-Glucose Meter (FREESTYLE LITE METER) monitoring kit 1 Each as needed. - Blood-Glucose Meter (FREESTYLE LITE METER) monitoring kit 1 Each as needed. - estradiol (CLIMARA) 0.0375 mg/24 hr Apply 1 Patch as direc geoff one time a week. (Patient not taking: Reported on 03/31/2019 ) - progesterone micronized (PROMETRIUM) 100 mg capsule Take 1 capsule by mouth every other day. TAKE WITH FOOD. (Patient not taking: Reported on 03/31/2019 ) No current facility-administered medications for this visit. Allergies As of Date: 03/31/2019 Allergen Noted Reaction CODEINE 09/27/2014 GI Upset and Vomiting PERCOCET [OXYCODONE-ACETAMINOPHEN]07/17/2011 Vomiting SOLUMEDROL [METHYLPREDNISOLONE SO*01/22/2014 Mental Status C hange VICODIN [HYDROCODONE-ACETAMINOPHE*07/17/2011 Vomiting COMBIPATCH [ESTRADIOL-NORETHINDRO*10/26/2016 Intolerance METFORMIN 10/28/2017 Other: See Comments PEPCID [FAMOTIDINE (PF)] 07/07/2016 Other: See Comments TAPAZOLE [METHIMAZOLE] 10/14/2005 Hives Fully Assessed 03/31/2019 REVIEW OF SYSTEMS Abdomen: No bloating, early satiety, indigestion, or increas ed flatulence. No abdominal pain, nausea, vomiting, diarrhea, or constipati on. Bladder: No dysuria, gross hematuria, urinary frequency, uri nary urgency, or incontinence. Breast: No breast lumps, nipple d/c, overlying skin changes, redness or skin retraction. Expanded ROS: N/A Allergies and current medication updated:Yes EXAM: BP 132/94 Wt 193 lb (87.5kg) LMP 03/10/2010 GENERAL: Anxious with rapid speech from one topic to the nex t, female in no apparent distress HEENT: Normocephalic and atraumatic NECK: Supple and full range of motion CHEST: Normal inspiratory effort ABDOMEN: soft, non-tender and no masses PELVIC: external genitalia normal, normal Bartholin's glands , urethra, Deltona's glands, no vulvar lesions, no cervical lesions, good vaginal support,normal appearing perineal body and perianal region, good vaginal tone, Large amount of thick white vaginal discharge, adheren t to vaginal side elias. Cervix non friable. BIMANUAL: uterus normal size, shape and consistency, no adne xal masses. Generalized pelvic tenderness, rating 3/10. No CMT. NEURO: alert and oriented x3,exam grossly non-focal EXTREMITIES: normal 03/27/19 pelvic US: RESULT: Uterus size: 7.3 x 5.6 x 3.3 cm ?? ? -Orientation: Anteverted ?? ? -Myometrium: Normal ?? ? -Endometrial echo complex: 0.4 cm ?? ? -Cervix: Complex nabothian cyst retrospect similar to sherwin jacques previous study. Right ovary: 2.8 x 1.3 x 1.8 cm. ?There is a cyst measuring 8 mm with a hyperechoic rim. Left ovary: Absent due to previous surgery Pelvis free fluid: None seen ASSESSMENT AND PLAN: 1. Pelvic pain in female - ICD9: 625.9, ICD10: R10.2 - Consented to STD screening. Reviewed pelvic US and follow up US in 6 weeks to evaluated small cyst. Discussed unlikely this is th e cause of her pain. Discussed if pain is that severe today would recommend ED for further evaluation. May need CT scan if pain does not improv e and no other clinical findings. -Will get STD screening, BV, and yeast today. - GC/CHLAMYDIA DNA DET - BACT/NANCY VAG GRAM STAIN - TRICHOMONAS PREP 2. Vaginal discharge - ICD9: 623.5, ICD10: N89.8 -Due to yeast appearance of discharge today and patient disc omfort, will treat with Diflucan 150mg PO once. To continue taking curren t metrogel. Discussed will still send for testing. Also recommend oral p robiotic by mouth once daily for 30 days. -Patient stated she take unopposed estrogen at times, I expl ained that she has an intact uterus and this would increase her risk of junaid rine cancer. She stated, I know that, I have worked with a [facility] pastry baker from the [facility]. I stated this wa s my advice but I would recommend follow up with the current provider haily is seeing for hormone replacement. She has seen multiple providers in the past for hormone replacement and has not tolerated many due to side e ffects. She stated she was not here today to discuss hormone replacement . She is currently not taking anything at this time. -Patient to make follow up appointment for a scheduled visit to discuss additional complaints. Mireya Barrera APRN.AV gc/chlamydia amplif on 2019-03-31 Chlamydia Amplif Negative for Chlamydia Normal 03-31-2019 [facility] trachomatis by Ari guevara ([id number]) amplification. Comment: Performed By: #### DHEAS, TD, PROG, E2 #### [facility] [address] [place] [address] #### EST #### [facility] [address] [place] [address] [phone] GC Amplification Negative for Neisseria Normal 03-31-2019 [facility] gonorrhoeae by Ari guevara ([id number]) amplification. Comment: Performed By: #### DHEAS, TD, PROG, E2 #### [facility] [address] [place] [address] #### EST #### [facility] [address] [place] [address] [phone] GC/Chlam Amp Source Cervix Normal 03-31-2019 [facility] ([id number]) Comment: Performed By: #### DHEAS, TD, PROG, E2 #### [facility] [address] [place], [place] [address] #### EST #### [facility] [address] [place] [address] [phone] cnov on 2019-03-31 CNOV Office Visit (WOOB) Normal 03-31-2019 [facility] GARZONJAZLYN Antonieta ([id number]) 1965 [facility] Date Time Provider Department ([id number]) 03/31/19 1:40 PM MIREYA BARRERA ([facility]) WOOB During your visit today, we recorded the following informati on about you: Blood pressure Weight 132/94 87.5 kg Mireya Barrera APRN.CNM 04/04/2019 10:42 PM Signed Jazlyn Garzon is a 53 year ol d female who presents for problem visit with pelvic pain. HPI:Patient seen today as walk in visit with multiple compla ints. Has history of bacterial vaginosis. [facility], started 3 days ago. Estrogel from PCP started for a few week s then started progesterone. Took this and got systemic swelling. Advised t o stop both estrogen and progesterone. Was offered estrogen patches with progesterone tablets every other day. Was not supposed to start anything until swelling decreased, this was 6 days ago. This was per patient in offi ce today. She states she has seen multiple providers. She take unopposed estrogen at times. Complaint of pain in pelvis, legs, lower legs, rating pain 6-10/10, states pain is cramping like pitocin. Comes and goes. This pain started 3 days ago but it has increased today. 2009 was last mense s, postmenopausal. Left ovary removed. Denies any vaginal bleeding or spotting. Admits to vaginal discharge, white, no odor. Not sexually active but would be ok with STD testing t sara. Pelvic pressure and feels like something is dropping. Constipation at times. No diarrhea. No burning with urination, urgency or frequency. She has issues tolerating progesterone. She states she has talked with other providers that have instructed her to induce a menses even t ricki she is postmenopausal but she did not want to d o this. She states all of her problems began with the removal of he r left ovary in 2014. She feels all of her symptoms come from the removal of thi s ovary, however, she is unsure if it all needs to come out. Patient became upset when I started to ask britt bedoya about history of hormone replacement. Upon visit tolynette brenner she started to talk about hormone replacement but then states this was not why she was here and di d not need me to discuss this with her. I asked patient what visit was about today, as t his was a walk in appointment for an urgent concern but she has multiple complaints about many organ systems, chronic issues and concerns with seeing many providers for hormone replacement and she is not a typical case and very complicated. Presents with multiple acute and chronic complai nts and I was unsure at visit what patient was wanting addressed today. Clari t rapidly goes from one topic to the next and becomes upset when askin g questions about complaints, history, and providers seen in the [facility]. I apologized to patient and stated that I would not be able to address all of her concerns today. I wo uld address the pelvic pain and vaginal discharge and would be happy to see her for a follow up appointment at a scheduled visit. PAST MEDICAL HISTORY Diagnosis Date - Abdominal pain, chronic, right upper quadrant - Asthma As a baby, then I outgrew it. - Cystocele, midline 05/13/2009 - Delayed emergence from anesthesia 09/27/2014 - Depression - Excessive or frequent menstruation Heavy periods - HSDD 10/21/2011 - Hypothyroidism should be on FRANCESCO synthroid. - Irregular menstrual cycle Irregular periods - menopause age 43 2009 in 2012 FSH 47 - Moderate dysplasia of cervix 2001 - Parent-child conflict 03/07/2013 - PMH - PAST MEDICAL HISTORY OF thyroid ablation/hypothyroid - Postmenopausal HRT (hormone replacement therapy) 12/13/2015 in 2015 took femHRT cried 11/2015 offer climara/prometrium - Rectocele 05/13/2009 - SVT (supraventricular tachycardia) (HCC) - Syncope 05/14/2013 -Reported that she had one episode of syncope at the OSH. -H ad the episode when she stood up. -No urinary incontinence or jerking movements. -Never had syncope episode before. -Last Echo stress test f or her chest pain was in 2011 (normal) Plan: -Repeat the Echo: normal - The left ventricle is normal in size. Left ventricular systo lic function is normal. EF = 63 ? 5% (2D biplane) - The right ventricle is normal in size. Right joel tricular systolic function is normal. - There are no significant valvular abnormalities. - Prior echocardiogram performed on 11/10/11 (stress echo). No significant change. - Tele - Tobacco use - Weight gain PAST SURGICAL HISTORY Procedure Laterality Date - CERVIX UTERI CONIZA LP ELCTRO EXCI 2001 LEEP-Cervix - COLONOSCOPY 04/2017 says nl - EGD W/O OR W/BRUSH/WASH 01/22/2014,2009 EGD - LAPAROSCOPIC CHOLEYCYSTECTOMY 05/19/2011 - LIGATE FALLOPIAN TUBE 2003 Tubal ligation - PAST SURGICAL HISTORY OF 1998 tubal - PAST SURGICAL HISTORY OF 2001 thyroid ablation - REMOVAL OF OVARY(S) 09/2014 laparoscopic left, CW, umbilical/upper abdominal adhesions s een benign FAMILY HISTORY Problem Relation Age of Onset - Diabetes Mother Type 2 stroke - Colon Cancer Father age 64 [place] - Diabetes Father Type 2 - Hypertension Father - Coronary Artery Disease Father Hx of [place] - Thyroid Sister hx of parathyroid disease/ hx of fibroids - other (healthy) Brother - other (healthy) Brother - Allergies Daughter - other (healthy) Daughter - other (healthy) Son - other (healthy) Son - other (healthy) Son - other (healthy) Son - Colon Cancer Paternal Aunt x5 - Colon Cancer Paternal Uncle x8 Social History Tobacco Use - Smoking status: Current Every Day Smoker Packs/day: 0.50 Types: Cigarettes Start date: 1985 - Smokeless tobacco: Never Used - Tobacco comment: Has quit intermittently, And I'm working on it now. 1st AM cigarette 10-15 minutes after awake. Most desire d is that one, or last of day before bed. Prior 8 month quits, resumed after pregnancies c ompleted. TO Substance Use Topics - Alcohol use: No - Drug use: No Current Outpatient Medications Medication Sig - SYNTHROID 137 mcg tablet take 1 tablet by mouth ON A N EMPTY STOMACH, EVERY WEDNESDAY AND WEDNESDAY - SYNTHROID 125 mcg tablet take 1 tablet by mouth once daily EXCEPT ON WEDNESDAY, TAKE 137 MCG - metroNIDAZOLE (METROGEL VAGINAL) 0.75 % Vaginal Gel Use 1 Applicatorful vaginally daily at bedtime. - lancets (FREESTYLE LANCETS) 28 gauge misc USE FOUR T IMES DAILY DIRECTED - blood sugar diagnostic (FREESTYLE TEST) test strip TEST fo ur times a day - Blood-Glucose Meter (FREESTYLE LITE METER) mon itoring kit 1 Each as needed. - Blood-Glucose Meter (FREESTYLE LITE METER) mon itoring kit 1 Each as needed. - estradiol (CLIMARA) 0.0375 mg/24 hr Apply 1 Patch as direc geoff one time a week. (Patient not taking: Reported on 03/31/2019 ) - progesterone micronized (PROMETRIUM) 100 mg ca psule Take 1 capsule by mouth every other day. TAKE WITH FOOD. (Patient not taking: Repo rted on 03/31/2019 ) No current facility-administered medications for this visit. Allergies As of Date: 03/31/2019 Allergen Noted Reaction CODEINE 09/27/2014 GI Upset and Vomiting PERCOCET [OXYCODONE-ACETAMINOPHEN]07/17/2011 Vomiting SOLUMEDROL [METHYLPREDNISOLONE SO*01/22/2014 Mental Status C hange VICODIN [HYDROCODONE-ACETAMINOPHE*07/17/2011 Vomiting COMBIPATCH [ESTRADIOL-NORETHINDRO*10/26/2016 Intolerance METFORMIN 10/28/2017 Other: See Comments PEPCID [FAMOTIDINE (PF)] 07/07/2016 Other: See Comments TAPAZOLE [METHIMAZOLE] 10/14/2005 Hives Fully Assessed 03/31/2019 REVIEW OF SYSTEMS Abdomen: No bloating, early satiety, indigestion , or increased flatulence. No abdominal pain, nausea, vomiting, diarrhea, or constipation. Bladder: No dysuria, gross hematuria, urinary frequenc y, urinary urgency, or incontinence. Breast: No breast lumps, nipple d/c, overlying skin ch anges, redness or skin retraction. Expanded ROS: N/A Allergies and current medication updated:Yes EXAM: BP 132/94 Wt 193 lb (87.5kg) LMP 03/10/2010 GENERAL: Anxious with rapid speech from one topic to the next, female in no apparent distress HEENT: Normocephalic and atraumatic NECK: Supple and full range of motion CHEST: Normal inspiratory effort ABDOMEN: soft, non-tender and no masses PELVIC: external genitalia normal, redd l Bartholin's glands, urethra, Deltona's glands, no vulvar lesions, no cervical lesions, good vagin al support,normal appearing perineal body and perianal region, good vaginal tone, Large amount of thick white vaginal discharge, adherent to vaginal side wall s. Cervix non friable. BIMANUAL: uterus normal size, shape and consistency, no adne xal masses. Generalized pelvic tenderness, rating 3/10. No CMT. NEURO: alert and oriented x3,exam grossly non-focal EXTREMITIES: normal 03/27/19 pelvic US: RESULT: Uterus size: 7.3 x 5.6 x 3.3 cm ?? ? -Orientation: Anteverted ?? ? -Myometrium: Normal ?? ? -Endometrial echo complex: 0.4 cm ?? ? -Cervix: Complex nabothian cyst retrospect similar to sherwin jacques previous study. Right ovary: 2.8 x 1.3 x 1.8 cm. ?There is a cyst measuring 8 mm with a hyperechoic rim. Left ovary: Absent due to previous surgery Pelvis free fluid: None seen ASSESSMENT AND PLAN: 1. Pelvic pain in female - ICD9: 625.9, ICD10: R10.2 - Consented to STD screening . Reviewed pelvic US and follow up US in 6 weeks to evaluated small cyst. Discussed unlikely this is the cause o f her pain. Discussed if pain is that severe today would recommend ED fo r further evaluation. May need CT scan if pain does not improve and no other clinical findings. -Will get STD screening, BV, and yeast today. - GC/CHLAMYDIA DNA DET - BACT/NANCY VAG GRAM STAIN - TRICHOMONAS PREP 2. Vaginal discharge - ICD9: 623.5, ICD10: N89.8 -Due to yeast appearance of discharge to day and patient discomfort, will treat with Diflucan 150mg PO once. To continue taking current me trogel. Discussed will still send for testing. Also recomm end oral probiotic by mouth once daily for 30 days. -Patient stated she take unopposed estro gen at times, I explained that she has an intact uterus and this would increase her risk of uterine cancer. She stated, I know that, I have worked with a world renowned pastry baker from the [facility]. I sta geoff this was my advice but I would recommend follow up with the current provider she is seeing for hormone rep lacement. She has seen multiple providers in the past for hormone replacement and has not tolerated many due to side effects. She stated she was not h ere today to discuss hormone replacement. She is currently not taking anything at this time. -Patient to make follow up appointment for a scheduled visit to discuss additional complaints. Mireya Barrera APRN.AV Referring Provider: SELF [[id number]] Allergies As of Date: 03/31/2019 Noted Allergy Reaction CODEINE 09/27/2014 8 - GI Upset 11 - Vomiting PERCOCET (OXYCODONE-ACETAMINOPHEN)07/17/2011 11 - Vomiting SOLUMEDROL (METHYLPREDNISOLONE SO*01/22/2014 1 - Mental Stat us Change Comments: Made her rageful VICODIN (HYDROCODONE-ACETAMINOPHE*07/17/2011 11 - Vomiting COMBIPATCH (ESTRADIOL-NORETHINDRO*10/26/2016 5 - Intolerance Comments: feels wired, muscles hurt, lips/mouth burn, feels like asthma flaring, nausea, dizziness. METFORMIN 10/28/2017 14 - Other: See Comments Comments: Myalgias. PEPCID (FAMOTIDINE (PF)) 07/07/2016 14 - Other: See Comments Comments: Dry eyes, mouth, rash, itching, anxiety TAPAZOLE (METHIMAZOLE) 10/14/2005 4 - Hives Date Reviewed: 03/31/2019 Reviewed by: Anastasiia Barton Ma - Fully Assessed Primary Visit Diagnosis:Pelvic pain in female [R10.2] Other Visit Diagnosis:Vaginal discharge [N89.8] Order(s):GC/CHLAMYDIA DNA DET [SQGCCAMP] Order #: [id number] Spec. #:[id number] BACT/NANCY VAG GRAM STAIN [SQBVCNSM] Order #: [id number] ec. #:[id number] TRICHOMONAS PREP [SQTRICHO] Order #: [id number]. #:[id number] [] fluconazole (DIFLUCAN) 150 mg tabletTake 1 tablet by mouth one time only for 1 dose.Disp: 1 tabletRfl: 0 L.acidoph-B.lactis-B.longum (FLORAJEN3) 460 mg (7.5-6- 1.5 b ill. cell) capTake 1 capsule by mouth once daily.Disp: 30 capsuleRfl: 0 Prescriptions as of 03/31/2019 Sig: SYNTHROID 137 MCG TABLET take 1 tablet by mouth ON AN * SYNTHROID 125 MCG TABLET take 1 tablet by mouth once d* X METRONIDAZOLE 0.75 % VAGINAL * Use 1 Applicatorful vaginal ly* LANCETS 28 GAUGE USE FOUR TIMES DAILY DIREC* BLOOD SUGAR DIAGNOSTIC STRIPS TEST four times a day BLOOD-GLUCOSE METER KIT 1 Each as needed. BLOOD-GLUCOSE METER KIT 1 Each as needed. FLUCONAZOLE 150 MG TABLET Take 1 tablet by mouth one ti* FLORAJEN3 460 MG (7.5-6-1.5 B* Take 1 capsule by mouth once * ESTRADIOL 0.0375 MG/24 HR WEE* Apply 1 Patch as directed one * Patient not taking: Reported on 03/31/2019 PROGESTERONE MICRONIZED 100 M* Take 1 capsule by mouth every * Patient not taking: Reported on 03/31/2019 Problem List As Of Date 03/31/2019 Noted Resolved Postablative hypothyroidism [E89.0] 04/06/2006 More... Excessive or frequent menstruation [N92.0] 01/05/20072011 Irregular menstrual cycle [N92.6] 01/05/2007 10/06/2011 Unspecified aftercare [Z51.89] 05/26/2011 10/06/2011 Abdominal pain, chronic, right upper quadrant [* 10/06/2011 Post-menopause [Z78.0] 10/21/2011 03/18/2015 More... URI (upper respiratory infection) [J06.9] 05/14/2013 015 More... Pneumonia [J18.9] 05/14/2013 07/11/2014 More... More... More... More... More... Adrenal disorder [E27.9] 05/24/2013 07/11/2014 hx of low vitamin D [E55.9] 06/01/2013 Panic disorder with agoraphobia [F40.01] 07/10/2013 Chronic fatigue fibromyalgia syndrome [R53.82, *07/12/2013 Marital conflict [Z63.0] 08/30/2013 07/11/2014 Blood pressure elevated without history of HTN *09/06/2014 Impaired glucose tolerance [R73.02] 09/06/2014 More... Ovarian cyst [N83.209] 09/24/2014 03/18/2015 SVT (supraventricular tachycardia) (HCC) [I47.1]09/27/2014 Delayed emergence from anesthesia [T88.59XA] 09/27/201409/25 On home oxygen therapy [Z99.81] 09/27/2014 12/13/2015 PTSD (post-traumatic stress disorder) [F43.10] 11/01/2014 Attention deficit hyperactivity disorder (ADHD)*11/08/2014 Recurrent major depressive disorder, in partial*07/09/2015 Encounter for screening mammogram for malignant*12/12/2015 0 11/09/2016 menopause age 43 [N95.1] Tobacco use [Z72.0] Postmenopausal HRT (hormone replacement therapy*12/13/2015 0 11/09/2016 Weight gain [R63.5] 10/19/2017 GERD without esophagitis [K21.9] 05/12/2017 More... Simple chronic bronchitis (HCC) [J41.0] 12/01/2017 More... Irritable bowel syndrome with diarrhea [K58.0] 12/14/2017 Systemic lupus erythematosus (HCC) [M32.9] 02/14/2018 Burning sensation of mouth [R20.8] 02/16/2018 Burning sensation of skin [R20.8] 02/16/2018 Sleep difficulties [G47.9] 02/16/2018 Mitral valve prolapse [I34.1] 02/23/2018 More... Screening for malignant neoplasm of the cervix *06/20/2018 Visit for pelvic exam [Z01.419] 06/20/2018 Encounter for screening mammogram for malignant*06/20/2018 Estrogen deficiency [E28.39] 06/20/2018 Adrenal adenoma, left [D35.02] 08/25/2018 More... Prescriptions ordered this encounter Disp Refills Start End FLUCONAZOLE 150 MG TABLET 1 ta* 0 03/31/2019 03/31/2019 Route: ORAL Sig: Take 1 tablet by mouth one time only for 1 dose. FLORAJEN3 460 MG (7.5-6-1.5 BILL. CE* 30 c* 0 03/31/2019 Route: ORAL Sig: Take 1 capsule by mouth once daily. Disposition: Return if symptoms worsen or fail to improve. Follow-up and Disposition History Recorded Encounter Status:Closed by MIREYA BARRERA on 04/04/19 bact/cand vag grm st on 2019-03-31 Bact/Cand Vag Grm Sp. Request/Comment: - Swab Norm al 03-31-2019 [facility] ([id number]) Smear Result - Stain results consistent with normal vaginal ishmael. No Yeast observed Few Polymorphonuclear leukocytes Comment: Performed By: #### TFTEST ## ## [facility] [address] [place], [place] [id number] obsolete on 2019-03 OBSOLETE Refill (FAMPWS) [facility] ([id number]) 1965 [facility] Date Time Provider Department ([id number]) 03/28/19 HUGO NAVA FAMPWS During your visit today, we recorded the following informati on about you: Katlyn Mills LPN 03/28/2019 11:56 AM Signed [facility] faxed a request for the following refill(s ): Pending Prescriptions Disp Refills SYNTHROID 137 MCG TABLET 8 tablet 5 Sig: take 1 tablet by mouth ON AN EMPTY STOMACH, EVERY Wed AND WEDNESDAY FRANCESCO: Yes ANCELMO: 03/22/19 NOV: None scheduled Last Refill: 10/10/18 #8 5 refills Katlyn Ceja PA-C 03/28/2019 12:00 PM Signed Addended by: Antonieta CEJA PA-C on: 03/28/2019 12:00 PM Modules accepted: Orders Allergies As of Date: 03/28/2019 Noted Allergy Reaction CODEINE 09/27/2014 8 - GI Upset 11 - Vomiting PERCOCET (OXYCODONE-ACETAMINOPHEN)07/17/2011 11 - Vomiting SOLUMEDROL (METHYLPREDNISOLONE SO*01/22/2014 1 - Mental Stat us Change Comments: Made her rageful VICODIN (HYDROCODONE-ACETAMINOPHE*07/17/2011 11 - Vomiting COMBIPATCH (ESTRADIOL-NORETHINDRO*10/26/2016 5 - Intolerance Comments: feels wired, muscles hurt, lips/mouth burn, feels like asthma flaring, nausea, dizziness. METFORMIN 10/28/2017 14 - Other: See Comments Comments: Myalgias. PEPCID (FAMOTIDINE (PF)) 07/07/2016 14 - Other: See Comments Comments: Dry eyes, mouth, rash, itching, anxiety TAPAZOLE (METHIMAZOLE) 10/14/2005 4 - Hives Date Reviewed: 02/03/2019 Reviewed by: Yuly Rai - Fully Assessed Reason for Visit: Refill Request [94] Order(s):SYNTHROID 137 mcg tablettake 1 tablet by mout h ON AN EMPTY STOMACH, EVERY WEDNESDAY AND WEDNESDAYDisp: 8 tabletRfl: 5 SYNTHROID 125 mcg tablettake 1 tablet by mouth once daily EX CEPT ON WEDNESDAY, TAKE 137 MCGDisp: 78 tabletRfl: 1 Prescriptions as of 03/28/2019 Sig: SYNTHROID 137 MCG TABLET take 1 tablet by mouth ON AN * SYNTHROID 125 MCG TABLET take 1 tablet by mouth once d* METRONIDAZOLE 0.75 % VAGINAL * Use 1 Applicatorful vaginally * ESTRADIOL 0.0375 MG/24 HR WEE* Apply 1 Patch as directed one * PROGESTERONE MICRONIZED 100 M* Take 1 capsule by mouth every * LANCETS 28 GAUGE USE FOUR TIMES DAILY DIREC* BLOOD SUGAR DIAGNOSTIC STRIPS TEST four times a day BLOOD-GLUCOSE METER KIT 1 Each as needed. BLOOD-GLUCOSE METER KIT 1 Each as needed. Problem List As Of Date 03/28/2019 Noted Resolved Postablative hypothyroidism [E89.0] 04/06/2006 More... Excessive or frequent menstruation [N92.0] 01/05/20072011 Irregular menstrual cycle [N92.6] 01/05/2007 10/06/2011 Unspecified aftercare [Z51.89] 05/26/2011 10/06/2011 Abdominal pain, chronic, right upper quadrant [* 10/06/2011 Post-menopause [Z78.0] 10/21/2011 03/18/2015 More... URI (upper respiratory infection) [J06.9] 05/14/2013 015 More... Pneumonia [J18.9] 05/14/2013 07/11/2014 More... More... More... More... More... Adrenal disorder [E27.9] 05/24/2013 07/11/2014 hx of low vitamin D [E55.9] 06/01/2013 Panic disorder with agoraphobia [F40.01] 07/10/2013 Chronic fatigue fibromyalgia syndrome [R53.82, *07/12/2013 Marital conflict [Z63.0] 08/30/2013 07/11/2014 Blood pressure elevated without history of HTN *09/06/2014 Impaired glucose tolerance [R73.02] 09/06/2014 More... Ovarian cyst [N83.209] 09/24/2014 03/18/2015 SVT (supraventricular tachycardia) (HCC) [I47.1]09/27/2014 Delayed emergence from anesthesia [T88.59XA] 09/27/201409/25 On home oxygen therapy [Z99.81] 09/27/2014 12/13/2015 PTSD (post-traumatic stress disorder) [F43.10] 11/01/2014 Attention deficit hyperactivity disorder (ADHD)*11/08/2014 Recurrent major depressive disorder, in partial*07/09/2015 Encounter for screening mammogram for malignant*12/12/2015 0 11/09/2016 menopause age 43 [N95.1] Tobacco use [Z72.0] Postmenopausal HRT (hormone replacement therapy*12/13/2015 0 11/09/2016 Weight gain [R63.5] 10/19/2017 GERD without esophagitis [K21.9] 05/12/2017 More... Simple chronic bronchitis (HCC) [J41.0] 12/01/2017 More... Irritable bowel syndrome with diarrhea [K58.0] 12/14/2017 Systemic lupus erythematosus (HCC) [M32.9] 02/14/2018 Burning sensation of mouth [R20.8] 02/16/2018 Burning sensation of skin [R20.8] 02/16/2018 Sleep difficulties [G47.9] 02/16/2018 Mitral valve prolapse [I34.1] 02/23/2018 More... Screening for malignant neoplasm of the cervix *06/20/2018 Visit for pelvic exam [Z01.419] 06/20/2018 Encounter for screening mammogram for malignant*06/20/2018 Estrogen deficiency [E28.39] 06/20/2018 Adrenal adenoma, left [D35.02] 08/25/2018 More... Prescriptions ordered this encounter Disp Refills Start End SYNTHROID 137 MCG TABLET 8 ta* 5 03/28/2019 Sig: take 1 tablet by mouth ON AN EMPTY STOMACH, EVERY WED DAY AND WEDNESDAY SYNTHROID 125 MCG TABLET 78 t* 1 03/28/2019 Sig: take 1 tablet by mouth once daily EXCEPT ON WEDNESDAY, MALA E 137 MCG Medications Discontinued During This Encounter SYNTHROID 125 mcg tablet 78 t* 1 12/12/2018 03/28/2019 Sig: take 1 tablet by mouth once daily EXCEPT ON WEDNESDAY, MALA E 137 MCG Disc: Reason for discontinue is not on file. SYNTHROID 137 mcg tablet 8 ta* 5 10/10/2018 03/28/2019 Sig: take 1 tablet by mouth ON AN EMPTY STOMACH, EVERY WED DAY AND WEDNESDAY Disc: Reason for discontinue is not on file. Encounter Status:Closed by Antonieta CEJA PA-C on 03/28/19 cnpn on 2019-03-28 CNPN Telephone (ENDOSO) Normal 03-28-2019 Zack JAZLYN Jones ([id number]) 1965 [place] Javier Dixon Date Time Provider Department ([id number]) 03/28/19 HA ORTIZ During your visit today, we recorded the following informati on about you: Ha Ortiz MD 03/28/2019 3:03 PM Signed 24 hr urine order is in MD Jackelyn Dinero Pss 03/28/2019 4:47 PM Signed Denise from [facility] is calling and the urine is contaminated and patient needs to come back in to give a new urine. She can b e reached at [phone]. Thank You Mayela Lemon Ma 03/30/2019 7:49 AM Signed called [facility] and talked to Angela and she said y ou need to put in another order. Ha Ortiz MD 03/30/2019 9:01 AM Signed Orders are in - let the patient know as well. MD Ha Dinero MD 03/30/2019 9:01 AM Signed Addended by: HA ORTIZ MD on: 03/30/2019 09:01 AM Modules accepted: Orders Allergies As of Date: 03/28/2019 Noted Allergy Reaction CODEINE 09/27/2014 8 - GI Upset 11 - Vomiting PERCOCET (OXYCODONE-ACETAMINOPHEN)07/17/2011 11 - Vomiting SOLUMEDROL (METHYLPREDNISOLONE SO*01/22/2014 1 - Mental Stat us Change Comments: Made her rageful VICODIN (HYDROCODONE-ACETAMINOPHE*07/17/2011 11 - Vomiting COMBIPATCH (ESTRADIOL-NORETHINDRO*10/26/2016 5 - Intolerance Comments: feels wired, muscles hurt, lips/mouth burn, feels like asthma flaring, nausea, dizziness. METFORMIN 10/28/2017 14 - Other: See Comments Comments: Myalgias. PEPCID (FAMOTIDINE (PF)) 07/07/2016 14 - Other: See Comments Comments: Dry eyes, mouth, rash, itching, anxiety TAPAZOLE (METHIMAZOLE) 10/14/2005 4 - Hives Date Reviewed: 02/03/2019 Reviewed by: Yuly Rai - Fully Assessed Reason for Visit: new lab order needed [Other] Primary Visit Diagnosis:Weight gain [R63.5] Order(s):FREE ALVERTO, UR LCMSMS [SQUFRCRT] Order #: [id number] FUTURE FREE ALVERTO, UR LCMSMS [SQUFRCRT] Order #: [id number] FUTURE CREATININE 24 HR UR [SQUCRD] Order #: [id number] FUTURE Prescriptions as of 03/28/2019 Sig: SYNTHROID 137 MCG TABLET take 1 tablet by mouth ON AN * SYNTHROID 125 MCG TABLET take 1 tablet by mouth once d* METRONIDAZOLE 0.75 % VAGINAL * Use 1 Applicatorful vaginally * ESTRADIOL 0.0375 MG/24 HR WEE* Apply 1 Patch as directed one * PROGESTERONE MICRONIZED 100 M* Take 1 capsule by mouth every * LANCETS 28 GAUGE USE FOUR TIMES DAILY DIREC* BLOOD SUGAR DIAGNOSTIC STRIPS TEST four times a day BLOOD-GLUCOSE METER KIT 1 Each as needed. BLOOD-GLUCOSE METER KIT 1 Each as needed. Problem List As Of Date 03/28/2019 Noted Resolved Postablative hypothyroidism [E89.0] 04/06/2006 More... Excessive or frequent menstruation [N92.0] 01/05/20072011 Irregular menstrual cycle [N92.6] 01/05/2007 10/06/2011 Unspecified aftercare [Z51.89] 05/26/2011 10/06/2011 Abdominal pain, chronic, right upper quadrant [* 10/06/2011 Post-menopause [Z78.0] 10/21/2011 03/18/2015 More... URI (upper respiratory infection) [J06.9] 05/14/2013 015 More... Pneumonia [J18.9] 05/14/2013 07/11/2014 More... More... More... More... More... Adrenal disorder [E27.9] 05/24/2013 07/11/2014 hx of low vitamin D [E55.9] 06/01/2013 Panic disorder with agoraphobia [F40.01] 07/10/2013 Chronic fatigue fibromyalgia syndrome [R53.82, *07/12/2013 Marital conflict [Z63.0] 08/30/2013 07/11/2014 Blood pressure elevated without history of HTN *09/06/2014 Impaired glucose tolerance [R73.02] 09/06/2014 More... Ovarian cyst [N83.209] 09/24/2014 03/18/2015 SVT (supraventricular tachycardia) (HCC) [I47.1]09/27/2014 Delayed emergence from anesthesia [T88.59XA] 09/27/201409/25 On home oxygen therapy [Z99.81] 09/27/2014 12/13/2015 PTSD (post-traumatic stress disorder) [F43.10] 11/01/2014 Attention deficit hyperactivity disorder (ADHD)*11/08/2014 Recurrent major depressive disorder, in partial*07/09/2015 Encounter for screening mammogram for malignant*12/12/2015 0 11/09/2016 menopause age 43 [N95.1] Tobacco use [Z72.0] Postmenopausal HRT (hormone replacement therapy*12/13/2015 0 11/09/2016 Weight gain [R63.5] 10/19/2017 GERD without esophagitis [K21.9] 05/12/2017 More... Simple chronic bronchitis (HCC) [J41.0] 12/01/2017 More... Irritable bowel syndrome with diarrhea [K58.0] 12/14/2017 Systemic lupus erythematosus (HCC) [M32.9] 02/14/2018 Burning sensation of mouth [R20.8] 02/16/2018 Burning sensation of skin [R20.8] 02/16/2018 Sleep difficulties [G47.9] 02/16/2018 Mitral valve prolapse [I34.1] 02/23/2018 More... Screening for malignant neoplasm of the cervix *06/20/2018 Visit for pelvic exam [Z01.419] 06/20/2018 Encounter for screening mammogram for malignant*06/20/2018 Estrogen deficiency [E28.39] 06/20/2018 Adrenal adenoma, left [D35.02] 08/25/2018 More... Encounter Status:Closed by HA ORTIZ MD on 03/28/19 female pelvis transvag on 2019-03-27 FEMALE PELVIS * * *Final Report* * * Normal 03-27-2019 [facility] TRANSVAG DATE OF EXAM: Mar 27 2019 7:45AM [place] ([id number]) U 1060 - US FEMALE PELVIS TRANSVAG / PROCEDURE REASON: Abdominal pain, unspecified abdominal loca tion * * * * Physician Interpretation * * * * EXAMINATION: TRANSVAGINAL AND LIMITED TRANSABDOMINAL PELVIC ULTRASOUND HISTORY: Abdominal pain, unspecified abdominal location Surgery: Previous LEFT nephrectomy TECHNIQUE: Sonography of the pelvis was performed by transva ginal and transabdominal (limited) techniques.Images were obtained and stored in a permanent archive. MQ: UFP_1 COMPARISON: Ultrasound 05/18/2018 CT 06/16/2018 FLMP: 2013 RESULT: Uterus size: 7.3 x 5.6 x 3.3 cm -Orientation: Anteverted -Myometrium: Normal -Endometrial echo complex: 0.4 cm -Cervix: Complex nabothian cyst retrospect similar to the pr evious study. Right ovary: 2.8 x 1.3 x 1.8 cm. There is a cyst measuring 8 mm with a hyperechoic rim. Left ovary: Absent due to previous surgery Pelvis free fluid: None seen IMPRESSION: 1. Complex nabothian cyst again noted as discussed 2. Small RIGHT ovarian cyst Audiovisual Technician: [facility] Transcribe Date/Time: Mar 27 2019 8:07A Dictated by : ELLY BROWN DO This examination was interpreted and the report reviewed and electronically signed by: ELLY BROWN DO on Mar 27 2019 8:11AM EST [id number] progress on 2019-03 PROGRESS HNO ID: [id number] Normal 03-27-2019 [facility] Author: Mireya Dixon ([id number]) Service: ? Author Type: Accounting Tutor Type: Progress Notes Filed: 03/27/2019 7:46 AM Note Text: Radiology Service Progress Note PATIENT NAME: Jazlyn Garzon DATE OF SERVICE: March 27, 2019 TIME: 7:46 AM PATIENT IDENTITY VERIFICATION COMPLETED USING TWO (2) IDENTI FIERS: Name and Date of confirmed by patient verbally. PATIENT GENDER DATA: Female. status: : No status: N/A PATIENT RELEVANT IMPLANT DATA REVIEWED: Not Applicable RADIOLOGY DEPARTMENT: Ultrasound PERIPHERAL IV DATA: Not applicable SIGNED BY: MIREYA LANE RDMS RVT March 27, 2019 7:46 AM vitamin b12 on 2018 Cobalamin (Vitamin B12) 101 800-5148 pg/mL Normal 2018 [facility] [Mass/Vol] [place] ([id number]) Comment: Performed By: #### TSH #### [facility] [address] [place] [phone] urine culture on 14-03-27 Bacteria identified Sp. Request/Comment: - Specimen received in pre servative Normal 03-22-2019 [facility] Cx Nom (U) [place] ([id number]) Culture Result - No growth (<1,000 CFU/ml) Comment: Performed By: #### TFTEST ## ## [facility] [address] [place] [address] urinalysis with microscopic on 2019-03-22 Bilirubin, Urine Negative Negative Normal 03-22-2019 [facility] ([id number]) Comment: Performed By: #### DHEAS, TD, PROG, E2 #### [facility] [address] [place] [phone] #### EST #### [facility] [address] [place] [address] [phone] Clarity (U) Clear Clear Normal 03-22-2019 [facility] ([id number]) Comment: Performed By: #### DHEAS, TD, PROG, E2 #### [facility] [address] [place] [phone] #### EST #### [facility] [address] [place] [address] [phone] Color (U) Yellow Yellow Normal 03-22-2019 [facility] ([id number]) Comment: Performed By: #### DHEAS, TD, PROG, E2 #### [facility] [address] [place] [phone] #### EST #### [facility] [address] [place] [address] [phone] Comments SEE COMMENT Normal 03-22-2019 [facility] ([id number]) Comment: Result Comment: N/A Performed By: #### DHEAS, TD, PROG, E2 #### [facility] [address] [place] [phone] #### EST #### [facility] [address] [place] [address] [phone] Epithelial cells LM.HPF SEE COMMENT Normal 02-25 [facility] (Urine sed) [#/Area] [place] ([id number]) Comment: Result Comment: Few Squamous Epithelial Cells Performed By: #### DHEAS, TD, PROG, E2 #### [facility] [address] [place] [phone] #### EST #### [facility] [address] [place] [address] [phone] Glucose Ql (U) Negative Negative Normal 03-22-2019 [facility] ([id number]) Comment: Performed By: #### DHEAS, TD, PROG, E2 #### [facility] [place] [phone] #### EST #### [facility] [address] [place] [address] [phone] Hemoglobin/Blood,Ur 2+ Negative Critically abnormal 03-22-2019 [facility] ([id number]) Comment: Performed By: #### DHEAS, TD, PROG, E2 #### [facility] [address] [place] [phone] #### EST #### [facility] [address] [place] [address] [phone] Ketones Ql (U) Negative Negative Normal 03-22-2019 [facility] ([id number]) Comment: Performed By: #### DHEAS, TD, PROG, E2 #### [facility] [address] [place] [phone] #### EST #### [facility] [address] [place] [address] [phone] Leukest Negative Negative Normal 03-22-2019 [facility] ([id number]) Comment: Performed By: #### DHEAS, TD, PROG, E2 #### [facility] [address] [place] [phone] #### EST #### [facility] [address] [place] [address] [phone] Nitrite Ql (U) Negative Negative Normal 03-22-2019 [facility] (34274) Comment: Performed By: #### DHEAS, TD, PROG, E2 #### [facility] [place] [phone] #### EST #### [facility] [address] [place] [address] [phone] pH (Bld) 7.0 4.5-8.0 Normal 03-22-2019 [facility] ([id number]) Comment: Performed By: #### DHEAS, TD, PROG, E2 #### [place] [phone] #### EST #### [facility] [address] [place] [address] [phone] Protein (U) [Mass/Vol] Negative Negative mg/dL Normal [address] [place] [address] ([id number]) Comment: Performed By: #### DHEAS, TD, PROG, E2 #### [place] [address] [place] [phone] #### EST #### [facility] [address] [place] [address] [phone] RBC (U) [#/Vol] 0-3 0-3 Normal 03-22-2019 [facility] ([id number]) Comment: Performed By: #### DHEAS, TD, PROG, E2 #### [place] [address] [place] [phone] #### EST #### [facility] [address] [place] [address] [phone] Specific [place], Ur 1.010 1.005-1.030 Normal 019 [facility] ([id number]) Comment: Performed By: #### DHEAS, TD, PROG, E2 #### [facility] [address] [place] [phone] #### EST #### [facility] [address] [place] [address] [phone] Urine Vladimir Comment SEE COMMENT Normal 03-22-2019 [facility] ([id number]) Comment: Result Comment: Result reche cked. Performed By: #### DHEAS, TD, PROG, E2 #### [facility] [address] [place] [phone] #### EST #### [facility] [address] [place] [address] [phone] Urobilinogen Qn (U) Normal Normal Normal 03-22-2019 [facility] ([id number]) Comment: Performed By: #### DHEAS, TD, PROG, E2 #### [facility] [address] [place] [phone] #### EST #### [facility] [address] [place] [address] [phone] WBC (Bld) [#/Vol] 0-5 0-5 Normal 03-22-2019 [facility] ([id number]) Comment: Performed By: #### DHEAS, TD, PROG, E2 #### [facility] [address] [place] [phone] #### EST #### [facility] [address] [place] [address] [phone] progress on 2019-02 PROGRESS HNO ID: [id number] Normal 03-22-2019 [facility] Author: Hugo Dixon ([id number]) Service: ? Author Type: Physician Type: Progress Notes Filed: 03/22/2019 11:16 AM Note Text: Patient presents with: Abdominal Pain HPI: Patient presents today for office visit for follow up This Team Access Model visit is a walk in encounter. It requ ired patient-provider interaction for the medical decision making as documented below. At last visit, came in to discuss the possibility of mastocy tosis. She has an appt with allergy/immunology in two weeks. Her la bs were not very remarkable but I did reorder b12 and folate since she h as a minimal elevation of mcv even though we have check b12 and folate ye missy since 2014. I also ordered testing for polycythemia even though it is likely related to smoking. She has had an intermittent mild leukocy tosis although not consistently present. Her tsh is slightly higher now but usually is relatively stable. She through the years has had extensive testing by several c cristiandiologists in [facility] and at [facility], multiple endocrinologists, endo surgery, several gastroenterologists, general surgery, several obgyn(some who specialize in hormone replacement), pulmonary, functional medicine, Yaneth cardoso neurologists, ,and several rheumatologists. She has underwen t a vast array of lab tests. In the last year alone, she has had stress inocencio t, echo, cta of the chest and ct of the abd and pelvis. She has had pelvi s ultrasound. In the last two years she has underwent an mri of her brain and eeg. Stress/anxiety has often been identified at least as a major component of her issues, however, she feels there is something that has y et to be identified that is causing her extensive list of various sym ptoms. I had suggested she may have an element of pots as well, given ort hostasis that has been documented on at least a few episodes. Tilt test deleon s been suggested and ordered several times yet she has not followed through on the testing. She was to have egd and colonoscopy scheduled in the spring. They wanted to have her to have an anesthesiologist present but she did not want to go to hospital to have done. She continues to have a large amount of varied symptoms enco mpassing multiple organ systems that have gone on for some time inclu ding. chronic reflux, burning mouth, tongue pain. The biggest issue is dionicio t we have tried about everything available on the market and cannot ta ke any of the meds. Still having stomach pain in her lower abdomen which comes a nd goes but is chronically tender. She has been recently having worsening c ramping that feels like when she had pitocin in the past. Has paresthesias, and burning skin. Does not sweat. Gets flu shed. Gets muscle cramps, fatigue, dizziness and palpations. She has having BV symptoms again. Could not finish the antib iotics. She complains of decreased vision issues. She has seen optho a year ago. She was having twitching at times. No current headaches although does get some. She attributes it to estrogen deficiency but again. Has had had sinuses cted in the last y ear. She has issues tolerating progesterone. She talked with a cl inical pharmacist who suggested she needs more progesterone. She deleon s not yet tried the climara. No urinary symptoms. No hematuria, dysuria. Sometimes excess yocasta urination but that is improved when she can taker her estrogen. Component Latest Ref Rng AND Units 03/20/2019 WBC 3.70 - 11.00 k/uL 11.40 (H) RBC 3.90 - 5.20 m/uL 4.85 Hemoglobin 11.5 - 15.5 g/dL 15.9 (H) Hematocrit 36.0 - 46.0 % 48.8 (H) MCV 80.0 - 100.0 fL 100.6 (H) MCH 26.0 - 34.0 pG 32.8 MCHC 30.5 - 36.0 g/dL 32.6 RDW-CV 11.5 - 15.0 % 12.3 Platelet Count 150 - 400 k/uL 293 MPV 9.0 - 12.7 fL 10.7 Neut% % 52.4 Abs Neut (ANC) 1.45 - 7.50 k/uL 5.98 Lymph% % 35.4 Abs Lymph 1.00 - 4.00 k/uL 4.03 (H) [place]% % 9.0 Abs [place] <0.87 k/uL 1.03 (H) Eosin% % 2.5 Abs Eosin <0.46 k/uL 0.28 Baso% % 0.7 Abs Baso <0.11 k/uL 0.08 Nucleated Reds 0 /100 WBC 0.0 Absolute nRBC <0.01 k/uL <0.01 Diff Type Auto Diff Albumin 3.9 - 4.9 g/dL 4.4 Bilirubin, Total 0.2 - 1.3 mg/dL 0.3 Bilirubin, Conjug <0.2 mg/dL <0.2 Alkaline Phosphatase 34 - 123 U/L 72 AST 13 - 35 U/L 23 ALT 7 - 38 U/L 32 Protein, Total 6.3 - 8.0 g/dL 7.6 TSH 0.270 - 4.200 uU/mL 3.110 Tryptase <8.4 ug/L 7.2 MEDICATIONS: Current Outpatient Medications Medication Sig - lancets (FREESTYLE LANCETS) 28 gauge misc USE FOUR TIMES D AILY DIRECTED - SYNTHROID 125 mcg tablet take 1 tablet by mouth once daily EXCEPT ON WEDNESDAY, TAKE 137 MCG - blood sugar diagnostic (FREESTYLE TEST) test strip TEST fo ur times a day - SYNTHROID 137 mcg tablet take 1 tablet by mouth ON AN EMPT Y STOMACH, EVERY WEDNESDAY AND WEDNESDAY - Blood-Glucose Meter (FREESTYLE LITE METER) monitoring kit 1 Each as needed. - Blood-Glucose Meter (FREESTYLE LITE METER) monitoring kit 1 Each as needed. - estradiol (CLIMARA) 0.0375 mg/24 hr Apply 1 Patch as direc geoff one time a week. - progesterone micronized (PROMETRIUM) 100 mg capsule Take 1 capsule by mouth every other day. TAKE WITH FOOD. No current facility-administered medications for this visit. ALLERGIES: ALLERGIES Allergen Reactions - Codeine GI Upset, Vomiting - Percocet [Oxycodone* Vomiting - Solumedrol [Methylp* Mental Status Change Made her rageful - Vicodin [Hydrocodon* Vomiting - Combipatch [Estradi* Intolerance feels wired, muscles hurt, lips/mouth burn, feels like asthm a flaring, nausea, dizziness. - Metformin Other: See Comments Myalgias. - Pepcid [Famotidine * Other: See Comments Dry eyes, mouth, rash, itching, anxiety - Tapazole [Methimazo* Hives PAST MEDICAL HISTORY Diagnosis Date - Abdominal pain, chronic, right upper quadrant - Asthma As a baby, then I outgrew it. - Cystocele, midline 05/13/2009 - Delayed emergence from anesthesia 09/27/2014 - Depression - Excessive or frequent menstruation Heavy periods - HSDD 10/21/2011 - Hypothyroidism should be on FRANCESCO synthroid. - Irregular menstrual cycle Irregular periods - menopause age 43 2009 in 2013 FSH 47 - Moderate dysplasia of cervix 2001 - Parent-child conflict 03/07/2013 - PMH - PAST MEDICAL HISTORY OF thyroid ablation/hypothyroid - Postmenopausal HRT (hormone replacement therapy) 12/13/2015 in 2015 took femHRT cried 11/2015 offer climara/prometrium - Rectocele 05/13/2009 - SVT (supraventricular tachycardia) (HCC) - Syncope 05/14/2013 -Reported that she had one episode of syncope at the OSH. -H ad the episode when she stood up. -No urinary incontinence or jerki ng movements. -Never had syncope episode before. -Last Echo stress test fo r her chest pain was in 2011 (normal) Plan: -Repeat the Echo: normal - T he left ventricle is normal in size. Left ventricular systolic funct ion is normal. EF = 63 ? 5% (2D biplane) - The right ventricle is normal in size. Right ventricular systolic function is normal. - There are no sign ificant valvular abnormalities. - Prior echocardiogram performed on 11/10/11 (stress echo). No significant change. - Tele - Tobacco use - Weight gain PAST SURGICAL HISTORY Procedure Laterality Date - CERVIX UTERI CONIZA LP ELCTRO EXCI 2001 LEEP-Cervix - COLONOSCOPY 04/2017 says nl - EGD W/O OR W/BRUSH/WASH 01/22/2014,2009 EGD - LAPAROSCOPIC CHOLEYCYSTECTOMY 05/19/2011 - LIGATE FALLOPIAN TUBE 2003 Tubal ligation - PAST SURGICAL HISTORY OF 1998 tubal - PAST SURGICAL HISTORY OF 2001 thyroid ablation - REMOVAL OF OVARY(S) 09/2014 laparoscopic left, CW, umbilical/upper abdominal adhesions s een benign FAMILY HISTORY Problem Relation Age of Onset - Diabetes Mother Type 2 stroke - Colon Cancer Father age 64 [place] - Diabetes Father Type 2 - Hypertension Father - Coronary Artery Disease Father Hx of [place] - Thyroid Sister hx of parathyroid disease/ hx of fibroids - other (healthy) Brother - other (healthy) Brother - Allergies Daughter - other (healthy) Daughter - other (healthy) Son - other (healthy) Son - other (healthy) Son - other (healthy) Son - Colon Cancer Paternal Aunt x5 - Colon Cancer Paternal Uncle x8 Social History Tobacco Use - Smoking status: Current Every Day Smoker Packs/day: 0.50 Types: Cigarettes Start date: 1985 - Smokeless tobacco: Never Used - Tobacco comment: Has quit intermittently, And I'm working on it now. 1st AM cigarette 10-15 minutes after awake. Most desired is that one, or last of day before bed. Prior 8 month quits, resumed after p regnancies completed. TO Substance Use Topics - Alcohol use: No - Drug use: No Reviewed current medications, allergies, past medical histor y, surgical history, family history and social history today. REVIEW OF SYSTEMS All other reviewed and negative other than HPI. HEALTH MAINTENANCE: Reviewed health maintenance issues today and recommended the following in detail. TWO PNEUMOVAX 5 YEARS APART PRIOR TO AGE 65(1)-rec ADULT PREVNAR-13 -rec MAMMOGRAM EVERY 2 YEARS due on 02/24/2019 VITALS: BP 128/76 Pulse 103 Temp 36.6 ?C (97.9 ?F) LMP 010 SpO2 93% Last 4 Encounter Wt Readings: Date: Wt: 03/17/2019 88.9 kg (196 lb) 03/08/2019 88.9 kg (196 lb) 02/03/2019 86.6 kg (191 lb) 01/03/2019 87.6 kg (193 lb 1.6 oz) PHYSICAL EXAMINATION: General appearance: Well appearing, alert, in no acute distr ess, well-hydrated, well nourished. Skin: Skin color, texture, turgor normal, no suspicious rash es or lesions Head: Normocephalic, no masses, lesions, tenderness or abnor malities Eyes: Anicteric sclera. Pupils are equally round and reactiv e to light. Extraocular movements are intact. } Lungs: lungs clear to auscultation. No wheezing, rhonchi, ra les Heart: RRR without murmur, gallop, or rubs. No ectopy Abdomen: Normal abdominal exam, Abdomen soft, non-tender. Otoniel wel sounds normal. No masses, organomegaly Extremities: No deformities, edema, skin discoloration, club kimber or cyanosis. Good capillary refill. Musculoskeletal: No joint swelling, deformity, or tenderness Peripheral pulses: Normal Neuro: Negative. ASSESSMENT/PLAN: 1. Abdominal pain, unspecified abdominal location - ICD9: 78 9.00, ICD10: R10.9 (primary diagnosis) - will cover with metrogel for her BV complaints. Recheck pe lvic us. We have tried numerous ssris etc but she cannot take any med s. Retry her hormone therapy. - US FEMALE PELVIS TRANSVAG - METRONIDAZOLE 0.75 % VAGINAL GEL - URINE OB DIP B/O - URINE CULTURE - URINALYSIS WITH MICROSCOPIC - UA DIP, URINE (POC) 2. Hot flashes - ICD9: 782.62, ICD10: R23.2 - get all of her pending labs. Reinforced need to see immuno logy although I do not see any evidence of mastocytosis currently. Her flor iations in her blood counts may well simply be related to her smoking. 3. Orthostatic hypotension - ICD9: 458.0, ICD10: I95.1 - reinforced need to get there tilt table test. 4. GERD without esophagitis - ICD9: 530.81, ICD10: K21.9 - reinforced need to talk with surgery and reschedule her eg d and colonoscopy. 5. Postablative hypoparathyroidism - ICD9: 252.1, ICD10: E89 .0 - continue meds. 6. Screening breast examination - ICD9: V76.10, ICD10: Z12.3 9 - ROSALIE SCREENING Hugo Nava MD RTO in two weeks and prn. jak2 v617f mutation on 2019-03-22 JAK2 V617F Interp (NOTE) Normal 03-22-2019 [facility] ([id number]) Comment: Result Comment: Performing P athologist: Dr. Richa Barba MD Interpretation: Result: JAK2 V617F Mutation Not Detected Interpretation: The JAK2 V617F Mutation was not detected. The V617F point mutation has been reported in a high percentage of cases of polycythemia vera, approximately half of the ca ses of essential thrombocythemia and chronic idiopathic myelofibr osis, and in a smaller proportion of other myeloid disorders. Methodology: Genomic DNA extracted from b lood or bone marrow was subject to an amplicon based method to enr ich for JAK2 exon 14, including the flanking canonical splicing sites. Pair end DNA sequencing was performed on the [employer] in [facility] ([place], [place]). A customized bioinformatic pipeline was u sed to align the sequencing reads to the reference human genome (GRCh 37/hg19). Benign common polymorphisms are not reported. Limitations: Sequence changes outside the analyzed regions, including intronic, noncoding, and splice site v ariants, will not be identified by this test. The lower limit of det ection of this assay is approximately 1% allele proportion for the JA K2 [id number] single nucleotide variant and approximately 5% allele proportion for other variants. Variants below 5% allele proportion m ay be reported at the discretion of the molecular pathology professi onal staff if the technical quality of the sequencing is sufficient at that location and the call is unequivocal. Common germline polymorphisms are considered to represent wild type sequence and are not included in this report. The presence of nucleotide polym orphisms or variants at the annealing sites of the primers used in amplification and sequencing may cause allele drop outs, hence a fa lse negative result is possible. This test was developed and its performance characteristics determined by [facility] ([facility]). It has not been cleared or approved by the FDA. [facility] is regulated under CLIA as qualified to perform high-complexity test ing. This test is used for clinical purposes. It should not be r egarded as investigational or for research. References: Moira DA, Stephanie A, Tong wheat R, Darren J, Landry MJ, Cher Contreras MM,et al. The 2016 revision to the World Health Organization (WHO) classification of myeloid ne oplasms and acute leukemia. Blood 2016;127: 2391-405. Porshai A, Pam R, Seymour JW. Myeloproliferative neoplasms: contemporary diagnosis using histology and genetics. Brinda Rev Clin Oncol 2009;6:627-37. Performed By: #### DHEAS, TD, PROG, E2 #### [facility] [address], [place] [address] #### EST #### [address] [address] [phone] folate, serum on 14-03-27 Folate [Mass/Vol] 12.3 >4.7 ng/mL Normal 03-22-2019 [facility] ([id number]) Comment: Performed By: #### TSH #### [facility] [address], [place] [address] epo on 2019-03-22 EPO 6.3 2.6-18.5 mIU/mL Normal 03-22-2019 [facility] ([id number]) Comment: Result Comment: Test analyze d by the Yanna DxI method. Performed By: #### TSH #### [facility] [address] [place], [place] [address] cnov on 2019-03-22 CNOV Office Visit (FAMPWS) Normal 03-22-20 19 [place] JAZLYN GARZON ([id number]) 1965 [facility] Date Time Provider Department ([id number]) 03/22/19 10:00 AM HUGO NAVA [facility] During your visit today, we recorded the following informati on about you: Temperature Pulse Blood pressure 97.9 degrees 103/minute 128/76 Jazlyn Garcia Ma 03/22/2019 10:03 AM Signed ABDOMINAL PAIN: pt c/o of cr amping that starts in abdomen and radiates down her legs. Denies any urinary symptoms. Skin and mouth feels like burning. Was treated for bacterial vaginosis in Nov,feels that it is back. Just doesn't feel right Hugo Nava MD 03/22/2019 11:16 AM Signed Patient presents with: Abdominal Pain HPI: Patient presents today for office visit for follow up This Team Access Model visit is a walk in encounter. It requ ired patient-provider interaction for the medical decision making as documented below. At last visit, came in to discuss the possibility of mastocy tosis. She has an appt with allergy/immunology in two weeks. Her labs were not very remarkable but I did reorder b12 and folate sinc e she has a minimal elevation of mcv even though we have check b12 and folate yearly since 2014. I also ordered testing for polycythemia even though it is likely related to smoking. She has had an intermittent mild leukocytosis although not c onsistently present. Her tsh is slightly higher now but usually is relat ively stable. She through the years has had extensive testing by several cardiologists in [facility] and at [facility], multiple endocrinologists, endo surgery, se rodriguez gastroenterologists, general surgery, several obgyn(some who specialize in hormone replacement), pulmonary, functional medicine, Cierra mason neurologists, ,and several rheumatologists. She has underwent a vast array of lab tests. In the last year alone, she has had stress test, echo, cta of the chest and ct of the abd and pelvis. She has had pelvis ultrasound. In the last two years she has underwent an mri of her brain and eeg. Stress/anxiety deleon s often been identified at least as a major component of her issues, alexander jo, she feels there is something that has yet to be id entified that is causing her extensive list of various symptoms. I had suggested she may have an element of pots as well, given orthostasis that has been documented on at least a few episodes. Tilt test has been suggested and ordered several times yet she has not followed through on the testing. She was to have egd and colonoscopy scheduled in the [facility]. They wanted to have her to have an anesthesiologist present but she did not want to go to hospital to have done. She continues to have a large amount of varied s ymptoms encompassing multiple organ systems that have gone on for some time including. chr onic reflux, burning mouth, tongue pain. The biggest issue is that we hav e tried about everything available on the market and cannot take any of th e meds. Still having stomach pain in her lower abdomen which comes a nd goes but is chronically tender. She has been recentl y having worsening cramping that feels like when she had pitocin in the past. Has paresthesias, and burning skin. Does not swe at. Gets flushed. Gets muscle cramps, fatigue, dizziness and palpations. She has having BV symptoms again. Could not finish the antib iotics. She complains of decreased vision issues. She has seen optho a year ago. She was having twitching at times. No current headaches although does get some. She attributes it to estrogen deficiency but again. Has had had sinuses cted in the last y ear. She has issues tolerating progesterone. She talk ed with a clinical pharmacist who suggested she needs more progesterone. She h as not yet tried the climara. No urinary symptoms. No hematuria, dysuria. Some times excessive urination but that is improved when she can taker her estrogen. Component Latest Ref Rng AND Units 03/20/2019 WBC 3.70 - 11.00 k/uL 11.40 (H) RBC 3.90 - 5.20 m/uL 4.85 Hemoglobin 11.5 - 15.5 g/dL 15.9 (H) Hematocrit 36.0 - 46.0 % 48.8 (H) MCV 80.0 - 100.0 fL 100.6 (H) MCH 26.0 - 34.0 pG 32.8 MCHC 30.5 - 36.0 g/dL 32.6 RDW-CV 11.5 - 15.0 % 12.3 Platelet Count 150 - 400 k/uL 293 MPV 9.0 - 12.7 fL 10.7 Neut% % 52.4 Abs Neut (ANC) 1.45 - 7.50 k/uL 5.98 Lymph% % 35.4 Abs Lymph 1.00 - 4.00 k/uL 4.03 (H) [place]% % 9.0 Abs [place] <0.87 k/uL 1.03 (H) Eosin% % 2.5 Abs Eosin <0.46 k/uL 0.28 Baso% % 0.7 Abs Baso <0.11 k/uL 0.08 Nucleated Reds 0 /100 WBC 0.0 Absolute nRBC <0.01 k/uL <0.01 Diff Type Auto Diff Albumin 3.9 - 4.9 g/dL 4.4 Bilirubin, Total 0.2 - 1.3 mg/dL 0.3 Bilirubin, Conjug <0.2 mg/dL <0.2 Alkaline Phosphatase 34 - 123 U/L 72 AST 13 - 35 U/L 23 ALT 7 - 38 U/L 32 Protein, Total 6.3 - 8.0 g/dL 7.6 TSH 0.270 - 4.200 uU/mL 3.110 Tryptase <8.4 ug/L 7.2 MEDICATIONS: Current Outpatient Medications Medication Sig - lancets (FREESTYLE LANCETS) 28 gauge misc USE FOUR T IMES DAILY DIRECTED - SYNTHROID 125 mcg tablet take 1 tablet by mouth once daily EXCEPT ON WEDNESDAY, TAKE 137 MCG - blood sugar diagnostic (FREESTYLE TEST) test strip TEST fo ur times a day - SYNTHROID 137 mcg tablet take 1 tablet by mouth ON A N EMPTY STOMACH, EVERY WEDNESDAY AND WEDNESDAY - Blood-Glucose Meter (FREESTYLE LITE METER) mon itoring kit 1 Each as needed. - Blood-Glucose Meter (FREESTYLE LITE METER) mon itoring kit 1 Each as needed. - estradiol (CLIMARA) 0.0375 mg/24 hr Apply 1 Patch as direc geoff one time a week. - progesterone micronized (PROMETRIUM) 100 mg ca psule Take 1 capsule by mouth every other day. TAKE WITH FOOD. No current facility-administered medications for this visit. ALLERGIES: ALLERGIES Allergen Reactions - Codeine GI Upset, Vomiting - Percocet [Oxycodone* Vomiting - Solumedrol [Methylp* Mental Status Change Made her rageful - Vicodin [Hydrocodon* Vomiting - Combipatch [Estradi* Intolerance feels wired, muscles hurt, lips/mouth burn, feels like asthm a flaring, nausea, dizziness. - Metformin Other: See Comments Myalgias. - Pepcid [Famotidine * Other: See Comments Dry eyes, mouth, rash, itching, anxiety - Tapazole [Methimazo* Hives PAST MEDICAL HISTORY Diagnosis Date - Abdominal pain, chronic, right upper quadrant - Asthma As a baby, then I outgrew it. - Cystocele, midline 05/13/2009 - Delayed emergence from anesthesia 09/27/2014 - Depression - Excessive or frequent menstruation Heavy periods - HSDD 10/21/2011 - Hypothyroidism should be on FRANCESCO synthroid. - Irregular menstrual cycle Irregular periods - menopause age 43 2009 in 2012 FSH 47 - Moderate dysplasia of cervix 2001 - Parent-child conflict 03/07/2013 - PMH - PAST MEDICAL HISTORY OF thyroid ablation/hypothyroid - Postmenopausal HRT (hormone replacement therapy) 12/13/2015 in 2014 took femHRT cried 11/2015 offer climara/prometrium - Rectocele 05/13/2009 - SVT (supraventricular tachycardia) (HCC) - Syncope 05/14/2013 -Reported that she had one episode of syncope at the OSH. -H ad the episode when she stood up. -No urinary incontinence or jerking movements. -Never had syncope episode before. -Last Echo stress test f or her chest pain was in 2011 (normal) Plan: -Repeat the Echo: normal - The left ventricle is normal in size. Left ventricular systo lic function is normal. EF = 63 ? 5% (2D biplane) - The right ventricle is normal in size. Right joel tricular systolic function is normal. - There are no significant valvular abnormalities. - Prior echocardiogram performed on 11/10/11 (stress echo). No significant change. - Tele - Tobacco use - Weight gain PAST SURGICAL HISTORY Procedure Laterality Date - CERVIX UTERI CONIZA LP ELCTRO EXCI 2001 LEEP-Cervix - COLONOSCOPY 04/2017 says nl - EGD W/O OR W/BRUSH/WASH 01/22/2014,2009 EGD - LAPAROSCOPIC CHOLEYCYSTECTOMY 05/19/2011 - LIGATE FALLOPIAN TUBE 2003 Tubal ligation - PAST SURGICAL HISTORY OF 1998 tubal - PAST SURGICAL HISTORY OF 2001 thyroid ablation - REMOVAL OF OVARY(S) 09/2014 laparoscopic left, CW, umbilical/upper abdominal adhesions s een benign FAMILY HISTORY Problem Relation Age of Onset - Diabetes Mother Type 2 stroke - Colon Cancer Father age 64 [place] - Diabetes Father Type 2 - Hypertension Father - Coronary Artery Disease Father Hx of [place] - Thyroid Sister hx of parathyroid disease/ hx of fibroids - other (healthy) Brother - other (healthy) Brother - Allergies Daughter - other (healthy) Daughter - other (healthy) Son - other (healthy) Son - other (healthy) Son - other (healthy) Son - Colon Cancer Paternal Aunt x5 - Colon Cancer Paternal Uncle x8 Social History Tobacco Use - Smoking status: Current Every Day Smoker Packs/day: 0.50 Types: Cigarettes Start date: 1985 - Smokeless tobacco: Never Used - Tobacco comment: Has quit intermittently, And I'm working on it now. 1st AM cigarette 10-15 minutes after awake. Most desire d is that one, or last of day before bed. Prior 8 month quits, resumed after pregnancies c ompleted. TO Substance Use Topics - Alcohol use: No - Drug use: No Reviewed current medications, allergies, past medical histor y, surgical history, family history and social history today. REVIEW OF SYSTEMS All other reviewed and negative other than HPI. HEALTH MAINTENANCE: Reviewed health maintenance issues today and recommended the following in detail. TWO PNEUMOVAX 5 YEARS APART PRIOR TO AGE 65(1)-rec ADULT PREVNAR-13 -rec MAMMOGRAM EVERY 2 YEARS due on 02/24/2019 VITALS: BP 128/76 Pulse 103 Temp 36.6 ?C (97.9 ?F) LMP 010 SpO2 93% Last 4 Encounter Wt Readings: Date: Wt: 03/17/2019 88.9 kg (196 lb) 03/08/2019 88.9 kg (196 lb) 02/03/2019 86.6 kg (191 lb) 01/03/2019 87.6 kg (193 lb 1.6 oz) PHYSICAL EXAMINATION: General appearance: Well abi earing, alert, in no acute distress, well-hydrated, well nourished. Skin: Skin color, texture, turgor normal, no suspicious rash es or lesions Head: Normocephalic, no masses, lesions, tenderness or abnor malities Eyes: Anicteric sclera. Pupils are equally round and reactiv e to light. Extraocular movements are intact. } Lungs: lungs clear to auscultation. No wheezing, rhonchi, ra les Heart: RRR without murmur, gallop, or rubs. No ectopy Abdomen: Normal abdominal exam, Abdomen soft, non-tender. Bowel sounds normal. No masses, organomegaly Extremities: No deformities, edema, skin discolo ration, clubbing or cyanosis. Good capillary refill. Musculoskeletal: No joint swelling, deformity, or tenderness Peripheral pulses: Normal Neuro: Negative. ASSESSMENT/PLAN: 1. Abdominal pain, unspecified abdominal location - ICD9: 789.00, ICD10: R10.9 (primary diagnosis) - will cover with metrogel for her BV complaints. Recheck pe lvic us. We have tried numerous ssris etc but she cannot take any med s. Retry her hormone therapy. - US FEMALE PELVIS TRANSVAG - METRONIDAZOLE 0.75 % VAGINAL GEL - URINE OB DIP B/O - URINE CULTURE - URINALYSIS WITH MICROSCOPIC - UA DIP, URINE (POC) 2. Hot flashes - ICD9: 782.62, ICD10: R23.2 - get all of her pending labs. Reinforce d need to see immunology although I do not see any evidence of mastocytosis currently. Her variat ions in her blood counts may well simply be related to her smoking. 3. Orthostatic hypotension - ICD9: 458.0, ICD10: I95.1 - reinforced need to get there tilt table test. 4. GERD without esophagitis - ICD9: 530.81, ICD10: K21.9 - reinforced need to talk with surgery a nd reschedule her egd and colonoscopy. 5. Postablative hypoparathyroidism - ICD9: 252.1, ICD10: E89 .0 - continue meds. 6. Screening breast examination - ICD9: V76.10, ICD10: Z12.3 9 - ROSALIE SCREENING Hugo Nava MD RTO in two weeks and prn. Hugo Nava MD 03/22/2019 10:53 AM Signed Do labs Do ultrasound Do tilt table test. Contact Dr. Miller's office to reschedule tests. Retry the estrogen, progestorone. Referring Provider: SELF [[id number]] Allergies As of Date: 03/22/2019 Noted Allergy Reaction CODEINE 09/27/2014 8 - GI Upset 11 - Vomiting PERCOCET (OXYCODONE-ACETAMINOPHEN)07/17/2011 11 - Vomiting SOLUMEDROL (METHYLPREDNISOLONE SO*01/22/2014 1 - Mental Stat us Change Comments: Made her rageful VICODIN (HYDROCODONE-ACETAMINOPHE*07/17/2011 11 - Vomiting COMBIPATCH (ESTRADIOL-NORETHINDRO*10/26/2016 5 - Intolerance Comments: feels wired, muscles hurt, lips/mouth burn, feels like asthma flaring, nausea, dizziness. METFORMIN 10/28/2017 14 - Other: See Comments Comments: Myalgias. PEPCID (FAMOTIDINE (PF)) 07/07/2016 14 - Other: See Comments Comments: Dry eyes, mouth, rash, itching, anxiety TAPAZOLE (METHIMAZOLE) 10/14/2005 4 - Hives Date Reviewed: 02/03/2019 Reviewed by: Yuly Rai - Fully Assessed Reason for Visit: Abdominal Pain [1] Primary Visit Diagnosis:Abdominal pain, unspecified abdominal location [R10.9] Other Visit Diagnoses:Hot flashes [R23.2] Orthostatic hypotension [I95.1] GERD without esophagitis [K21.9] Postablative hypoparathyroidism [E89.0] Screening breast examination [Z12.39] Order(s):US FEMALE PELVIS TRANSVAG [[id number]] Order #: [id number] FUTURE metroNIDAZOLE (METROGEL VAGINAL) 0.75 % Vaginal GelUse 1 Applicatorful vaginally daily at bedtime.Disp: 70 gRfl: 0 ROSALIE SCREENING [[id number]] Order #: [id number] FUTURE UA DIP, URINE (POC) [] Order #: [id number]. #:[id number] URINE CULTURE [SQURCUL] Order #: [id number] URINALYSIS WITH MICROSCOPIC [SQUAWMIC] Order #: [id number] UA DIP, URINE (POC) [] Order #: [id number] Prescriptions as of 03/22/2019 Sig: LANCETS 28 GAUGE USE FOUR TIMES DAILY DIREC* SYNTHROID 125 MCG TABLET take 1 tablet by mouth once d* BLOOD SUGAR DIAGNOSTIC STRIPS TEST four times a day SYNTHROID 137 MCG TABLET take 1 tablet by mouth ON AN * BLOOD-GLUCOSE METER KIT 1 Each as needed. BLOOD-GLUCOSE METER KIT 1 Each as needed. METRONIDAZOLE 0.75 % VAGINAL * Use 1 Applicatorful vaginally * ESTRADIOL 0.0375 MG/24 HR WEE* Apply 1 Patch as directed one * PROGESTERONE MICRONIZED 100 M* Take 1 capsule by mouth every * Problem List As Of Date 03/22/2019 Noted Resolved Postablative hypothyroidism [E89.0] 04/06/2006 More... Excessive or frequent menstruation [N92.0] 01/05/20072011 Irregular menstrual cycle [N92.6] 01/05/2007 10/06/2011 Unspecified aftercare [Z51.89] 05/26/2011 10/06/2011 Abdominal pain, chronic, right upper quadrant [* 10/06/2011 Post-menopause [Z78.0] 10/21/2011 03/18/2015 More... URI (upper respiratory infection) [J06.9] 05/14/2013 015 More... Pneumonia [J18.9] 05/14/2013 07/11/2014 More... More... More... More... More... Adrenal disorder [E27.9] 05/24/2013 07/11/2014 hx of low vitamin D [E55.9] 06/01/2013 Panic disorder with agoraphobia [F40.01] 07/10/2013 Chronic fatigue fibromyalgia syndrome [R53.82, *07/12/2013 Marital conflict [Z63.0] 08/30/2013 07/11/2014 Blood pressure elevated without history of HTN *09/06/2014 Impaired glucose tolerance [R73.02] 09/06/2014 More... Ovarian cyst [N83.209] 09/24/2014 03/18/2015 SVT (supraventricular tachycardia) (HCC) [I47.1]09/27/2014 Delayed emergence from anesthesia [T88.59XA] 09/27/201409/25 On home oxygen therapy [Z99.81] 09/27/2014 12/13/2015 PTSD (post-traumatic stress disorder) [F43.10] 11/01/2014 Attention deficit hyperactivity disorder (ADHD)*11/08/2014 Recurrent major depressive disorder, in partial*07/09/2015 Encounter for screening mammogram for malignant*12/12/2015 0 11/09/2016 menopause age 43 [N95.1] Tobacco use [Z72.0] Postmenopausal HRT (hormone replacement therapy*12/13/2015 0 11/09/2016 Weight gain [R63.5] 10/19/2017 GERD without esophagitis [K21.9] 05/12/2017 More... Simple chronic bronchitis (HCC) [J41.0] 12/01/2017 More... Irritable bowel syndrome with diarrhea [K58.0] 12/14/2017 Systemic lupus erythematosus (HCC) [M32.9] 02/14/2018 Burning sensation of mouth [R20.8] 02/16/2018 Burning sensation of skin [R20.8] 02/16/2018 Sleep difficulties [G47.9] 02/16/2018 Mitral valve prolapse [I34.1] 02/23/2018 More... Screening for malignant neoplasm of the cervix *06/20/2018 Visit for pelvic exam [Z01.419] 06/20/2018 Encounter for screening mammogram for malignant*06/20/2018 Estrogen deficiency [E28.39] 06/20/2018 Adrenal adenoma, left [D35.02] 08/25/2018 More... Other instructions from your clinician: Do labs Do ultrasound Do tilt table test. Contact Dr. Miller's office to reschedule tests. Retry the estrogen, progestorone. Visit Notes: >> Jazlyn Garcia Ma WedMar 22, 2019 9:54 AM Status: Signed ABDOMINAL PAIN: pt c/o of cramping that starts in abdomen an d radiates down her legs. Denies any urinary symptoms. Skin and mouth feels like burning. Was treated for bacterial vaginosis in Nov,feels that it is back. Just doesn't feel right Prescriptions ordered this encounter Disp Refills Start End METRONIDAZOLE 0.75 % VAGINAL GEL 70 g 0 03/22/2019 Route: VAGINAL Sig: Use 1 Applicatorful vaginally daily at bedtime. Disposition: Return in about 2 weeks (around 04/05/2019). Follow-up and Disposition History Recorded Encounter Status:Closed by HUGO NAVA MD on 03/22/19 carboxyhemoglobin,joel on 2019-03-22 Carboxyhemoglobin,Joel 7.1 <2.0 % High 03-22-20 [facility] ([id number]) Comment: Performed By: #### TSH #### [facility] [address] [id number] n-methylhistamine,ur on 2019-03-21 Collection duration (U) 24 Normal 2018 [facility] ([id number]) Comment: Performed By: #### TFTEST ## ## [facility] [employer] [address] [place] [address] Creatinine [Mass/Vol] 64 mg/dL Normal 03-21-20 [facility] ([id number]) Comment: Performed By: #### TFTEST ## ## [facility] [employer] [address] [place] [address] N-Methylhistamine,Ur 72 30-200 mcg/g Cr Normal 9 [facility] ([id number]) Comment: Performed By: #### TFTEST ## ## [facility] [employer] [address] [place] [address] Urine Volume 2500 Normal 03-21-2019 [facility] ([id number]) Comment: Performed By: #### TFTEST ## ## [facility] [employer] [address] [place] [address] tsh on 2019-03-20 TSH Qn 3.110 0.270-4.200 uU/mL Normal 03-20-2019 [facility] ([id number]) Comment: Performed By: #### DHEAS, TD, PROG, E2 #### [facility] [address] [place] [phone] #### EST #### [facility] [address] [place] [address] [phone] tryptase on 2019-02 Tryptase 7.2 <8.4 ug/L Normal 03-20-2019 [facility] ([id number]) Comment: Performed By: #### DHEAS, TD, PROG, E2 #### [facility] [address] [phone] #### EST #### [facility] [address] [place] [address] [phone] progress on 2019-02 PROGRESS HNO ID: [id number] Normal 03-20-2019 [facility] Author: Hugo Nava Dixon ([id number]) Service: ? Author Type: Physician Type: Progress Notes Filed: 03/20/2019 7:15 PM Note Text: Patient presents with: Dizziness HPI: Patient presents today for office visit for acute visit . This Team Access Model visit is a walk in encounter. It requ ired patient-provider interaction for the medical decision making as documented below. She is going to try the climara. She feels like there is yojana ething else underlying her issues. She says she is not crazy. She thinks she has two things going on. Since she in her 20's. She is thinking she has mastocytosis. We have discussed it in the past and I had explained that treating a nd diagnosis that is beyond my abilities as a primary care physician. She would need to see an sales project coordinator/director of consulting services to further evaluate these issu es and perhaps a parcel carrier. She has polycythemia likely related to her smoking and intermittent elevated white counts. She had been set up previously to see immunology and [facility] She did not keep her appt with tilt testing. She has multiple symptoms including palpitations, hot flashe s, gerd, dizzness etc. Has had extensive work up by multiple speciali sts. Many have felt anxiety was playing a component. However, she is intole rant to most meds. We have found that hormone therapy seems to help her s ymptoms, however, she cannot tolerate most preparations. MEDICATIONS: Current Outpatient Medications Medication Sig - SYNTHROID 125 mcg tablet take 1 tablet by mouth once daily EXCEPT ON WEDNESDAY, TAKE 137 MCG - SYNTHROID 137 mcg tablet take 1 tablet by mouth ON AN EMPT Y STOMACH, EVERY WEDNESDAY AND WEDNESDAY - estradiol (CLIMARA) 0.0375 mg/24 hr Apply 1 Patch as direc geoff one time a week. - progesterone micronized (PROMETRIUM) 100 mg capsule Take 1 capsule by mouth every other day. TAKE WITH FOOD. - lancets (FREESTYLE LANCETS) 28 gauge misc USE FOUR TIMES D AILY DIRECTED - blood sugar diagnostic (FREESTYLE TEST) test strip TEST fo ur times a day - Blood-Glucose Meter (FREESTYLE LITE METER) monitoring kit 1 Each as needed. - Blood-Glucose Meter (FREESTYLE LITE METER) monitoring kit 1 Each as needed. No current facility-administered medications for this visit. ALLERGIES: ALLERGIES Allergen Reactions - Codeine GI Upset, Vomiting - Percocet [Oxycodone* Vomiting - Solumedrol [Methylp* Mental Status Change Made her rageful - Vicodin [Hydrocodon* Vomiting - Combipatch [Estradi* Intolerance feels wired, muscles hurt, lips/mouth burn, feels like asthm a flaring, nausea, dizziness. - Metformin Other: See Comments Myalgias. - Pepcid [Famotidine * Other: See Comments Dry eyes, mouth, rash, itching, anxiety - Tapazole [Methimazo* Hives PAST MEDICAL HISTORY Diagnosis Date - Abdominal pain, chronic, right upper quadrant - Asthma As a baby, then I outgrew it. - Cystocele, midline 05/13/2009 - Delayed emergence from anesthesia 09/27/2014 - Depression - Excessive or frequent menstruation Heavy periods - HSDD 10/21/2011 - Hypothyroidism should be on FRANCESCO synthroid. - Irregular menstrual cycle Irregular periods - menopause age 43 2009 in 2013 FSH 47 - Moderate dysplasia of cervix 2001 - Parent-child conflict 03/07/2013 - PMH - PAST MEDICAL HISTORY OF thyroid ablation/hypothyroid - Postmenopausal HRT (hormone replacement therapy) 12/13/2015 in 2014 took femHRT cried 11/2015 offer climara/prometrium - Rectocele 05/13/2009 - SVT (supraventricular tachycardia) (HCC) - Syncope 05/14/2013 -Reported that she had one episode of syncope at the OSH. -H ad the episode when she stood up. -No urinary incontinence or jerki ng movements. -Never had syncope episode before. -Last Echo stress test fo r her chest pain was in 2011 (normal) Plan: -Repeat the Echo: normal - T he left ventricle is normal in size. Left ventricular systolic funct ion is normal. EF = 63 ? 5% (2D biplane) - The right ventricle is normal in size. Right ventricular systolic function is normal. - There are no sign ificant valvular abnormalities. - Prior echocardiogram performed on 11/10/11 (stress echo). No significant change. - Tele - Tobacco use - Weight gain PAST SURGICAL HISTORY Procedure Laterality Date - CERVIX UTERI CONIZA LP ELCTRO EXCI 2001 LEEP-Cervix - COLONOSCOPY 04/2017 says nl - EGD W/O OR W/BRUSH/WASH 01/22/2014,2009 EGD - LAPAROSCOPIC CHOLEYCYSTECTOMY 05/19/2011 - LIGATE FALLOPIAN TUBE 2003 Tubal ligation - PAST SURGICAL HISTORY OF 1998 tubal - PAST SURGICAL HISTORY OF 2001 thyroid ablation - REMOVAL OF OVARY(S) 09/2014 laparoscopic left, CW, umbilical/upper abdominal adhesions s een benign FAMILY HISTORY Problem Relation Age of Onset - Diabetes Mother Type 2 stroke - Colon Cancer Father age 64 [place] - Diabetes Father Type 2 - Hypertension Father - Coronary Artery Disease Father Hx of [place] - Thyroid Sister hx of parathyroid disease/ hx of fibroids - other (healthy) Brother - other (healthy) Brother - Allergies Daughter - other (healthy) Daughter - other (healthy) Son - other (healthy) Son - other (healthy) Son - other (healthy) Son - Colon Cancer Paternal Aunt x5 - Colon Cancer Paternal Uncle x8 Social History Tobacco Use - Smoking status: Current Every Day Smoker Packs/day: 0.50 Types: Cigarettes Start date: 1985 - Smokeless tobacco: Never Used - Tobacco comment: Has quit intermittently, And I'm working on it now. 1st AM cigarette 10-15 minutes after awake. Most desired is that one, or last of day before bed. Prior 8 month quits, resumed after p mary completed. TO Substance Use Topics - Alcohol use: No - Drug use: No Reviewed current medications, allergies, past medical histor y, surgical history, family history and social history today. REVIEW OF SYSTEMS All other reviewed and negative other than HPI. VITALS: BP 124/82 Pulse 88 Resp 16 LMP 03/10/2010 BP w/Orthostatic Vitals Date and Time Orthostatic BP Orthostatic Pulse BP Pulse BP P osition BP Site BP Cuff Size 03/20/1933 -- -- 124/82 88 -- -- -- Peak Flow Date and Time PF Resp 03/20/19832 -- 16 Last 4 Encounter Wt Readings: Date: Wt: 03/17/2019 88.9 kg (196 lb) 03/08/2019 88.9 kg (196 lb) 02/03/2019 86.6 kg (191 lb) 01/03/2019 87.6 kg (193 lb 1.6 oz) PHYSICAL EXAMINATION: General appearance: Well appearing, alert, in no acute distr ess, well-hydrated, well nourished. Skin: Skin color, texture, turgor normal, no suspicious rash es or lesions Lungs: lungs clear to auscultation. No wheezing, rhonchi, ra les Heart: RRR without murmur, gallop, or rubs. No ectopy Abdomen: Normal abdominal exam, Abdomen soft, non-tender. Otoniel wel sounds normal. No masses, organomegaly Extremities: No deformities, edema, skin discoloration, club kimber or cyanosis. Good capillary refill. Musculoskeletal: No joint swelling, deformity, or tenderness Peripheral pulses: Normal Neuro: Negative. ASSESSMENT/PLAN: 1. Fatigue, unspecified type - ICD9: 780.79, ICD10: R53.83 ( primary diagnosis) - Again, reiterated that she really needs to see a specialis t to diagnose something like that. Could also consider hematology. Check l abs first. Try the hormone therapy we discussed again. - CONSULT TO ALLERGY/IMMUNOLOGY - CBC + DIFF - HEPATIC FUNCTION PNL - TRYPTASE BLOOD - N-METHYLHISTAMINE,UR 2. Allergic state, subsequent encounter - ICD9: V58.89, ICD1 0: T78.40XD - CONSULT TO ALLERGY/IMMUNOLOGY - CBC + DIFF - HEPATIC FUNCTION PNL - TRYPTASE BLOOD - N-METHYLHISTAMINE,UR 3. Hot flashes - ICD9: 782.62, ICD10: R23.2 - CONSULT TO ALLERGY/IMMUNOLOGY - CBC + DIFF - HEPATIC FUNCTION PNL - TRYPTASE BLOOD - N-METHYLHISTAMINE,UR 4. Orthostatic hypotension - ICD9: 458.0, ICD10: I95.1 - again recommended she reconsider doing the tilt testing. - CBC + DIFF - HEPATIC FUNCTION PNL - TRYPTASE BLOOD - N-METHYLHISTAMINE,UR Hugo Nava MD hepatic functn panel on 2019-03-20 Albumin [Mass/Vol] 4.4 3.9-4.9 g/dL Normal 03-20-2019 [facility] ([id number]) Comment: Performed By: #### DHEAS, TD, PROG, E2 #### [facility] [address] [phone] #### EST #### [facility] [address] [place] [address] [phone] ALP [Catalytic activity/Vol] 72 34-123 U/L Normal 1 05-20-2018 [facility] ([id number]) Comment: Performed By: #### DHEAS, TD, PROG, E2 #### [facility] [address] [phone] #### EST #### [facility] [address] [place] [address] [phone] ALT [Catalytic activity/Vol] 32 7-38 U/L Normal 1 05-20-2018 [facility] ([id number]) Comment: Performed By: #### DHEAS, TD, PROG, E2 #### [facility] [phone] #### EST #### [facility] [address] [place] [address] [phone] AST [Catalytic activity/Vol] 23 13-35 U/L Normal 1 05-20-2018 [facility] ([id number]) Comment: Performed By: #### DHEAS, TD, PROG, E2 #### [facility] [address] [place] [phone] #### EST #### [facility] [address] [place], [place] [id number] [phone] Bilirubin [Mass/Vol] 0.3 0.2-1.3 mg/dL Normal 9 [facility] ([id number]) Comment: Performed By: #### DHEAS, TD, PROG, E2 #### [facility] [address] [place] [phone] #### EST #### [facility] [address] [place] [address] [phone] Bilirubin,Conjugated <0.2 <0.2 Normal 9 [facility] ([id number]) Comment: Performed By: #### DHEAS, TD, PROG, E2 #### [facility] [phone] #### EST #### [facility] [address] [place] [address] [phone] Protein [Mass/Vol] 7.6 6.3-8.0 g/dL Normal 03-20-2019 [facility] ([id number]) Comment: Performed By: #### DHEAS, TD, PROG, E2 #### 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 Dizziness. Hugo Nava MD 03/20/2019 7:15 PM Signed Patient presents with: Dizziness HPI: Patient presents today for office visit for acute visit . This Team Access Model visit is a walk in encounter. It requ ired patient-provider interaction for the medical decision making as documented below. She is going to try the climara. She feels like there is yojana ething else underlying her issues. She says she is not crazy. She thinks she has two thing s going on. Since she in her 20's. She is thinking she has mastocytosis. We have discussed it in the past and I had explained that treating and diagnosis dionicio t is beyond my abilities as a primary care physician. She would need to see an sales project coordinator/director of consulting services to further evaluate these issues and perhaps a parcel carrier. She has polycythemia likely related to her smo aleta and intermittent elevated white counts. She had been set up prev iously to see immunology and apparently there was an issue with her insurance. She did not keep her appt with tilt testing. She has multiple symptoms including palpitations , hot flashes, gerd, dizzness etc. Has had extensive work up by multip le specialists. Many have felt anxiety was playing a component. How ever, she is intolerant to most meds. We have found that hormone therapy seems to help her symptoms, however, she cannot tolerate most preparations. MEDICATIONS: Current Outpatient Medications Medication Sig - SYNTHROID 125 mcg tablet take 1 tablet by mouth once daily EXCEPT ON WEDNESDAY, TAKE 137 MCG - SYNTHROID 137 mcg tablet take 1 tablet by mouth ON A N EMPTY STOMACH, EVERY WEDNESDAY AND WEDNESDAY - estradiol (CLIMARA) 0.0375 mg/24 hr Apply 1 Patch as direc geoff one time a week. - progesterone micronized (PROMETRIUM) 100 mg ca psule Take 1 capsule by mouth every other day. TAKE WITH FOOD. - lancets (FREESTYLE LANCETS) 28 gauge misc USE FOUR T IMES DAILY DIRECTED - blood sugar diagnostic (FREESTYLE TEST) test strip TEST fo ur times a day - Blood-Glucose Meter (FREESTYLE LITE METER) mon itoring kit 1 Each as needed. - Blood-Glucose Meter (FREESTYLE LITE METER) mon itoring kit 1 Each as needed. No current facility-administered medications for this visit. ALLERGIES: ALLERGIES Allergen Reactions - Codeine GI Upset, Vomiting - Percocet [Oxycodone* Vomiting - Solumedrol [Methylp* Mental Status Change Made her rageful - Vicodin [Hydrocodon* Vomiting - Combipatch [Estradi* Intolerance feels wired, muscles hurt, lips/mouth burn, feels like asthm a flaring, nausea, dizziness. - Metformin Other: See Comments Myalgias. - Pepcid [Famotidine * Other: See Comments Dry eyes, mouth, rash, itching, anxiety - Tapazole [Methimazo* Hives PAST MEDICAL HISTORY Diagnosis Date - Abdominal pain, chronic, right upper quadrant - Asthma As a baby, then I outgrew it. - Cystocele, midline 05/13/2009 - Delayed emergence from anesthesia 09/27/2014 - Depression - Excessive or frequent menstruation Heavy periods - HSDD 10/21/2011 - Hypothyroidism should be on FRANCESCO synthroid. - Irregular menstrual cycle Irregular periods - menopause age 43 2009 in 2012 FSH 47 - Moderate dysplasia of cervix 2001 - Parent-child conflict 03/07/2013 - PMH - PAST MEDICAL HISTORY OF thyroid ablation/hypothyroid - Postmenopausal HRT (hormone replacement therapy) 12/13/2015 in 2014 took femHRT cried 11/2015 offer climara/prometrium - Rectocele 05/13/2009 - SVT (supraventricular tachycardia) (HCC) - Syncope 05/14/2013 -Reported that she had one episode of syncope at the OSH. -H ad the episode when she stood up. -No urinary incontinence or jerking movements. -Never had syncope episode before. -Last Echo stress test f or her chest pain was in 2012 (normal) Plan: -Repeat the Echo: normal - The left ventricle is normal in size. Left ventricular systo lic function is normal. EF = 63 ? 5% (2D biplane) - The right ventricle is normal in size. Right joel tricular systolic function is normal. - There are no significant valvular abnormalities. - Prior echocardiogram performed on 11/10/11 (stress echo). No significant change. - Tele - Tobacco use - Weight gain PAST SURGICAL HISTORY Procedure Laterality Date - CERVIX UTERI CONIZA LP ELCTRO EXCI 2001 LEEP-Cervix - COLONOSCOPY 04/2017 says nl - EGD W/O OR W/BRUSH/WASH 01/22/2014,2009 EGD - LAPAROSCOPIC CHOLEYCYSTECTOMY 05/19/2011 - LIGATE FALLOPIAN TUBE 2003 Tubal ligation - PAST SURGICAL HISTORY OF 1998 tubal - PAST SURGICAL HISTORY OF 2001 thyroid ablation - REMOVAL OF OVARY(S) 09/2014 laparoscopic left, CW, umbilical/upper abdominal adhesions s een benign FAMILY HISTORY Problem Relation Age of Onset - Diabetes Mother Type 2 stroke - Colon Cancer Father age 64 [place] - Diabetes Father Type 2 - Hypertension Father - Coronary Artery Disease Father Hx of [place] - Thyroid Sister hx of parathyroid disease/ hx of fibroids - other (healthy) Brother - other (healthy) Brother - Allergies Daughter - other (healthy) Daughter - other (healthy) Son - other (healthy) Son - other (healthy) Son - other (healthy) Son - Colon Cancer Paternal Aunt x5 - Colon Cancer Paternal Uncle x8 Social History Tobacco Use - Smoking status: Current Every Day Smoker Packs/day: 0.50 Types: Cigarettes Start date: 1985 - Smokeless tobacco: Never Used - Tobacco comment: Has quit intermittently, And I'm working on it now. 1st AM cigarette 10-15 minutes after awake. Most desire d is that one, or last of day before bed. Prior 8 month quits, resumed after pregnancies c ompleted. TO Substance Use Topics - Alcohol use: No - Drug use: No Reviewed current medications, allergies, past medical histor y, surgical history, family history and social history today. REVIEW OF SYSTEMS All other reviewed and negative other than HPI. VITALS: BP 124/82 Pulse 88 Resp 16 LMP 03/10/2010 BP w/Orthostatic Vitals Date and Time Orthostatic BP Orthostatic Pulse BP Pulse BP Position BP Site BP Cuff Size 03/20/19 0833 -- -- 124/82 88 -- -- -- Peak Flow Date and Time PF Resp 03/20/19 0833 -- 16 Last 4 Encounter Wt Readings: Date: Wt: 03/17/2019 88.9 kg (196 lb) 03/08/2019 88.9 kg (196 lb) 02/03/2019 86.6 kg (191 lb) 01/03/2019 87.6 kg (193 lb 1.6 oz) PHYSICAL EXAMINATION: General appearance: Well abi earing, alert, in no acute distress, well-hydrated, well nourished. Skin: Skin color, texture, turgor normal, no suspicious rash es or lesions Lungs: lungs clear to auscultation. No wheezing, rhonchi, ra les Heart: RRR without murmur, gallop, or rubs. No ectopy Abdomen: Normal abdominal exam, Abdomen soft, non-tender. Bowel sounds normal. No masses, organomegaly Extremities: No deformities, edema, skin discolo ration, clubbing or cyanosis. Good capillary refill. Musculoskeletal: No joint swelling, deformity, or tenderness Peripheral pulses: Normal Neuro: Negative. ASSESSMENT/PLAN: 1. Fatigue, unspecified type - ICD9: 780 .79, ICD10: R53.83 (primary diagnosis) - Again, reiterated that she really needs to see a specialis t to diagnose something like that. Could also consider hematology. Check labs first. Try the hormone therapy we discussed again. - CONSULT TO ALLERGY/IMMUNOLOGY - CBC + DIFF - HEPATIC FUNCTION PNL - TRYPTASE BLOOD - N-METHYLHISTAMINE,UR 2. Allergic state, subsequent encounter - ICD9: V58.89, ICD1 0: T78.40XD - CONSULT TO ALLERGY/IMMUNOLOGY - CBC + DIFF - HEPATIC FUNCTION PNL - TRYPTASE BLOOD - N-METHYLHISTAMINE,UR 3. Hot flashes - ICD9: 782.62, ICD10: R23.2 - CONSULT TO ALLERGY/IMMUNOLOGY - CBC + DIFF - HEPATIC FUNCTION PNL - TRYPTASE BLOOD - N-METHYLHISTAMINE,UR 4. Orthostatic hypotension - ICD9: 458.0, ICD10: I95.1 - again recommended she reconsider doing the tilt testing. - CBC + DIFF - HEPATIC FUNCTION PNL - TRYPTASE BLOOD - N-METHYLHISTAMINE,UR Hugo Nava MD Referring Provider: SELF [[id number]] Allergies As of Date: 03/20/2019 Noted Allergy Reaction CODEINE 09/27/2014 8 - GI Upset 11 - Vomiting PERCOCET (OXYCODONE-ACETAMINOPHEN)07/17/2011 11 - Vomiting SOLUMEDROL (METHYLPREDNISOLONE SO*01/22/2014 1 - Mental Stat us Change Comments: Made her rageful VICODIN (HYDROCODONE-ACETAMINOPHE*07/17/2011 11 - Vomiting COMBIPATCH (ESTRADIOL-NORETHINDRO*10/26/2016 5 - Intolerance Comments: feels wired, muscles hurt, lips/mouth burn, feels like asthma flaring, nausea, dizziness. METFORMIN 10/28/2017 14 - Other: See Comments Comments: Myalgias. PEPCID (FAMOTIDINE (PF)) 07/07/2016 14 - Other: See Comments Comments: Dry eyes, mouth, rash, itching, anxiety TAPAZOLE (METHIMAZOLE) 10/14/2005 4 - Hives Date Reviewed: 02/03/2019 Reviewed by: Yuly Rai - Fully Assessed Reason for Visit: Dizziness [36] Primary Visit Diagnosis:Fatigue, unspecified type [R53.83] Other Visit Diagnoses:Allergic state, subsequent encounter [ T78.40XD] Hot flashes [R23.2] Orthostatic hypotension [I95.1] Order(s):CONSULT TO ALLERGY/IMMUNOLOGY [9009] Order #: [id number]: 1 CBC + DIFF [SQCBCDIF] Order #: [id number] FUTURE HEPATIC FUNCTION PNL [SQHFP] Order #: [id number] FUTURE TRYPTASE BLOOD [SQTRYPT] Order #: [id number] FUTURE N-METHYLHISTAMINE,UR [SQMHISTA] Order #: [id number] Prescriptions as of 03/20/2019 Sig: SYNTHROID 125 MCG TABLET take 1 tablet by mouth once d* SYNTHROID 137 MCG TABLET take 1 tablet by mouth ON AN * ESTRADIOL 0.0375 MG/24 HR WEE* Apply 1 Patch as directed one * PROGESTERONE MICRONIZED 100 M* Take 1 capsule by mouth every * LANCETS 28 GAUGE USE FOUR TIMES DAILY DIREC* BLOOD SUGAR DIAGNOSTIC STRIPS TEST four times a day BLOOD-GLUCOSE METER KIT 1 Each as needed. BLOOD-GLUCOSE METER KIT 1 Each as needed. Problem List As Of Date 03/20/2019 Noted Resolved Postablative hypothyroidism [E89.0] 04/06/2006 More... Excessive or frequent menstruation [N92.0] 01/05/20072011 Irregular menstrual cycle [N92.6] 01/05/2007 10/06/2011 Unspecified aftercare [Z51.89] 05/26/2011 10/06/2011 Abdominal pain, chronic, right upper quadrant [* 10/06/2011 Post-menopause [Z78.0] 10/21/2011 03/18/2015 More... URI (upper respiratory infection) [J06.9] 05/14/2013 015 More... Pneumonia [J18.9] 05/14/2013 07/11/2014 More... More... More... More... More... Adrenal disorder [E27.9] 05/24/2013 07/11/2014 hx of low vitamin D [E55.9] 06/01/2013 Panic disorder with agoraphobia [F40.01] 07/10/2013 Chronic fatigue fibromyalgia syndrome [R53.82, *07/12/2013 Marital conflict [Z63.0] 08/30/2013 07/11/2014 Blood pressure elevated without history of HTN *09/06/2014 Impaired glucose tolerance [R73.02] 09/06/2014 More... Ovarian cyst [N83.209] 09/24/2014 03/18/2015 SVT (supraventricular tachycardia) (HCC) [I47.1]09/27/2014 Delayed emergence from anesthesia [T88.59XA] 09/27/201409/25 On home oxygen therapy [Z99.81] 09/27/2014 12/13/2015 PTSD (post-traumatic stress disorder) [F43.10] 11/01/2014 Attention deficit hyperactivity disorder (ADHD)*11/08/2014 Recurrent major depressive disorder, in partial*07/09/2015 Encounter for screening mammogram for malignant*12/12/2015 0 11/09/2016 menopause age 43 [N95.1] Tobacco use [Z72.0] Postmenopausal HRT (hormone replacement therapy*12/13/2015 0 11/09/2016 Weight gain [R63.5] 10/19/2017 GERD without esophagitis [K21.9] 05/12/2017 More... Simple chronic bronchitis (HCC) [J41.0] 12/01/2017 More... Irritable bowel syndrome with diarrhea [K58.0] 12/14/2017 Systemic lupus erythematosus (HCC) [M32.9] 02/14/2018 Burning sensation of mouth [R20.8] 02/16/2018 Burning sensation of skin [R20.8] 02/16/2018 Sleep difficulties [G47.9] 02/16/2018 Mitral valve prolapse [I34.1] 02/23/2018 More... Screening for malignant neoplasm of the cervix *06/20/2018 Visit for pelvic exam [Z01.419] 06/20/2018 Encounter for screening mammogram for malignant*06/20/2018 Estrogen deficiency [E28.39] 06/20/2018 Adrenal adenoma, left [D35.02] 08/25/2018 More... Visit Notes: >> Sudha Pink [employer]PER[employer] REPAIR Mon Mar 20, 2019 8:31 AM Status: Signed Thought was going to have twice a week hormone patch at [facility] and when got there was the once per week patch. Over the weekend with cramping in lower body. Dizziness. Encounter Status:Closed by HUGO NAVA MD on 03/20/19 cbc and differential on 2019-03-20 Abs Baso 0.08 <0.11 k/uL Normal 03-20-2019 [facility] ([id number]) Comment: Performed By: #### DHEAS, TD, PROG, E2 #### [facility] [address] [place], [place] [address] #### EST #### [facility] [address] [place] [address] [phone] Abs [place] 1.03 <0.87 k/uL High 03-20-2019 [facility] ([id number]) Comment: Performed By: #### DHEAS, TD, PROG, E2 #### [facility] [address] [place] [phone] #### EST #### [facility] [address] [place] [address] [phone] Abs Neut 5.98 1.45-7.50 k/uL Normal 03-20-2019 [facility] ([id number]) Comment: Performed By: #### DHEAS, TD, PROG, E2 #### [place] [id number] [place] [phone] #### EST #### [facility] [address] [place] [address] [phone] Absolute nRBC <0.01 <0.01 Normal 03-20-2019 [facility] ([id number]) Comment: Performed By: #### DHEAS, TD, PROG, E2 #### [place] [phone] #### EST #### [facility] [address] [place] [address] [phone] Basophils/100 WBC (Bld) 0.7 % Normal 2018 [facility] ([id number]) Comment: Performed By: #### DHEAS, TD, PROG, E2 #### [place] [address] [place] [phone] #### EST #### [facility] [address] [place] [address] [phone] DTYPE Auto Diff Normal 03-20-2019 [facility] ([id number]) Comment: Performed By: #### DHEAS, TD, PROG, E2 #### [place] [phone] #### EST #### [facility] [address] [place] [address] [phone] Eosinophils (Bld) [#/Vol] 0.28 <0.46 k/uL Normal 02-25 [facility] ([id number]) Comment: Performed By: #### DHEAS, TD, PROG, E2 #### [facility] [address] [place] [phone] #### EST #### [facility] [address] [place] [address] [phone] Eosinophils/100 WBC (Bld) 2.5 % Normal 02-25 [facility] ([id number]) Comment: Performed By: #### DHEAS, TD, PROG, E2 #### [facility] [address] [place] [phone] #### EST #### [facility] [address] [place] [address] [phone] Erythrocyte distribution 12.3 11.5-15.0 % Normal 03-20 [facility] width (RBC) [Ratio] [place] ([id number]) Comment: Performed By: #### DHEAS, TD, PROG, E2 #### [facility] [place] [phone] #### EST #### [facility] [address] [place] [address] [phone] Hematocrit (Bld) [Volume 48.8 36.0-46.0 % High 03-20 [facility]] [place] ([id number]) Comment: Performed By: #### DHEAS, TD, PROG, E2 #### [facility] [address] [place] [phone] #### EST #### [facility] [address] [place] [address] [phone] Hemoglobin (Bld) 15.9 11.5-15.5 g/dL High 03-20-2019 [facility] [Mass/Vol] [place] ([id number]) Comment: Performed By: #### DHEAS, TD, PROG, E2 #### [facility] [place] [phone] #### EST #### [facility] [address] [place] [address] [phone] Lymphocytes (Bld) [#/Vol] 4.03 1.00-4.00 k/uL High 02-25 [facility] ([id number]) Comment: Performed By: #### DHEAS, TD, PROG, E2 #### [place] [phone] #### EST #### [facility] [address] [place] [address] [phone] Lymphocytes/100 WBC (Bld) 35.4 % Normal 02-25 [facility] ([id number]) Comment: Performed By: #### DHEAS, TD, PROG, E2 #### [place] [phone] #### EST #### [facility] [address] [place] [address] [phone] MCH (RBC) [Entitic mass] 32.8 26.0-34.0 pG Normal 03-20 [facility] ([id number]) Comment: Performed By: #### DHEAS, TD, PROG, E2 #### [place] [phone] #### EST #### [facility] [address] [place] [address] [phone] MCHC (RBC) [Mass/Vol] 32.6 30.5-36.0 g/dL Normal 03-20-20 [facility] ([id number]) Comment: Performed By: #### DHEAS, TD, PROG, E2 #### [place] [phone] #### EST #### [facility] [address] [place] [address] [phone] MCV (RBC) [Entitic vol] 100.6 80.0-100.0 fL High 03-20 [facility] ([id number]) Comment: Performed By: #### DHEAS, TD, PROG, E2 #### [facility] [address] [place] [phone] #### EST #### [facility] [address] [place] [address] [phone] Monocytes/100 WBC (Bld) 9.0 % Normal 2018 [facility] ([id number]) Comment: Performed By: #### DHEAS, TD, PROG, E2 #### [facility] [address] [place] [phone] #### EST #### [facility] [address] [place] [address] [phone] Neutrophils/100 WBC (Bld) 52.4 % Normal 02-25 [facility] ([id number]) Comment: Performed By: #### DHEAS, TD, PROG, E2 #### [facility] [address] [place] [phone] #### EST #### [facility] [address] [place] [address] [phone] NRBCs 0.0 0 /100 WBC Normal 03-20-2019 [facility] ([id number]) Comment: Performed By: #### DHEAS, TD, PROG, E2 #### [facility] [address] [place] [phone] #### EST #### [facility] [address] [place] [address] [phone] Platelet mean volume 10.7 9.0-12.7 fL Normal 9 [facility] (d) [Entitic vol] [place] ([id number]) Comment: Performed By: #### DHEAS, TD, PROG, E2 #### [facility] [place] [phone] #### EST #### [facility] [address] [place] [address] [phone] Platelets (Bld) [#/Vol] 293 150-400 k/uL Normal 2018 [facility] ([id number]) Comment: Performed By: #### DHEAS, TD, PROG, E2 #### [facility] [address] [place] [phone] #### EST #### [facility] [address] [place] [address] [phone] RBC (Bld) [#/Vol] 4.85 3.90-5.20 m/uL Normal 03-20-2019 [facility] ([id number]) Comment: Performed By: #### DHEAS, TD, PROG, E2 #### [facility] [address] [place] [phone] #### EST #### [facility] [address] [place] [address] [phone] WBC (Bld) [#/Vol] 11.40 3.70-11.00 k/uL High 03-20-2019 [facility] ([id number]) Comment: Performed By: #### DHEAS, TD, PROG, E2 #### [facility] [address] [place] [phone] #### EST #### [facility] [address] [place] [address] [phone] progress on 2019-02 PROGRESS HNO ID: [id number] Normal 03-17-2019 [facility] Author: Hugo Dixon ([id number]) Service: ? Author Type: Physician Type: Progress Notes Filed: 03/17/2019 4:47 PM Note Text: Patient presents with: Symptomatic Menopause HPI: Patient presents today for office visit for follow up. This Team Access Model visit is a walk in encounter. It requ ired patient-provider interaction for the medical decision making as documented below. Still having issues with tolerating meds. Did not yet start a lower dose of progesterone. Her insurance is giving her a difficult chetna e about covering the estogen she would like to use. Again has been i ntolerant to many different types. Still with same symptoms as before. No new issues. We discussed the need to not use unopposed estrogen. MEDICATIONS: Current Outpatient Medications Medication Sig - lancets (FREESTYLE LANCETS) 28 gauge misc USE FOUR TIMES D AILY DIRECTED - SYNTHROID 125 mcg tablet take 1 tablet by mouth once daily EXCEPT ON WEDNESDAY, TAKE 137 MCG - blood sugar diagnostic (FREESTYLE TEST) test strip TEST fo ur times a day - SYNTHROID 137 mcg tablet take 1 tablet by mouth ON AN EMPT Y STOMACH, EVERY WEDNESDAY AND WEDNESDAY - Blood-Glucose Meter (FREESTYLE LITE METER) monitoring kit 1 Each as needed. - Blood-Glucose Meter (FREESTYLE LITE METER) monitoring kit 1 Each as needed. - estradiol (CLIMARA) 0.0375 mg/24 hr Apply 1 Patch as direc geoff one time a week. - progesterone micronized (PROMETRIUM) 100 mg capsule Take 1 capsule by mouth every other day. TAKE WITH FOOD. No current facility-administered medications for this visit. ALLERGIES: ALLERGIES Allergen Reactions - Codeine GI Upset, Vomiting - Percocet [Oxycodone* Vomiting - Solumedrol [Methylp* Mental Status Change Made her rageful - Vicodin [Hydrocodon* Vomiting - Combipatch [Estradi* Intolerance feels wired, muscles hurt, lips/mouth burn, feels like asthm a flaring, nausea, dizziness. - Metformin Other: See Comments Myalgias. - Pepcid [Famotidine * Other: See Comments Dry eyes, mouth, rash, itching, anxiety - Tapazole [Methimazo* Hives PAST MEDICAL HISTORY Diagnosis Date - Abdominal pain, chronic, right upper quadrant - Asthma As a baby, then I outgrew it. - Cystocele, midline 05/13/2009 - Delayed emergence from anesthesia 09/27/2014 - Depression - Excessive or frequent menstruation Heavy periods - HSDD 10/21/2011 - Hypothyroidism should be on FRANCESCO synthroid. - Irregular menstrual cycle Irregular periods - menopause age 43 2009 in 2013 FSH 47 - Moderate dysplasia of cervix 2001 - Parent-child conflict 03/07/2013 - PMH - PAST MEDICAL HISTORY OF thyroid ablation/hypothyroid - Postmenopausal HRT (hormone replacement therapy) 12/13/2015 in 2015 took femHRT cried 11/2015 offer climara/prometrium - Rectocele 05/13/2009 - SVT (supraventricular tachycardia) (HCC) - Syncope 05/14/2013 -Reported that she had one episode of syncope at the OSH. -H ad the episode when she stood up. -No urinary incontinence or jerki ng movements. -Never had syncope episode before. -Last Echo stress test fo r her chest pain was in 2011 (normal) Plan: -Repeat the Echo: normal - T he left ventricle is normal in size. Left ventricular systolic funct ion is normal. EF = 63 ? 5% (2D biplane) - The right ventricle is normal in size. Right ventricular systolic function is normal. - There are no sign ificant valvular abnormalities. - Prior echocardiogram performed on 11/10/11 (stress echo). No significant change. - Tele - Tobacco use - Weight gain PAST SURGICAL HISTORY Procedure Laterality Date - CERVIX UTERI CONIZA LP ELCTRO EXCI 2001 LEEP-Cervix - COLONOSCOPY 04/2017 says nl - EGD W/O OR W/BRUSH/WASH 01/22/2014,2009 EGD - LAPAROSCOPIC CHOLEYCYSTECTOMY 05/19/2011 - LIGATE FALLOPIAN TUBE 2003 Tubal ligation - PAST SURGICAL HISTORY OF 1998 tubal - PAST SURGICAL HISTORY OF 2001 thyroid ablation - REMOVAL OF OVARY(S) 09/2014 laparoscopic left, CW, umbilical/upper abdominal adhesions s een benign FAMILY HISTORY Problem Relation Age of Onset - Diabetes Mother Type 2 stroke - Colon Cancer Father age 64 [place] - Diabetes Father Type 2 - Hypertension Father - Coronary Artery Disease Father Hx of [place] - Thyroid Sister hx of parathyroid disease/ hx of fibroids - other (healthy) Brother - other (healthy) Brother - Allergies Daughter - other (healthy) Daughter - other (healthy) Son - other (healthy) Son - other (healthy) Son - other (healthy) Son - Colon Cancer Paternal Aunt x5 - Colon Cancer Paternal Uncle x8 Social History Tobacco Use - Smoking status: Current Every Day Smoker Packs/day: 0.50 Types: Cigarettes Start date: 1985 - Smokeless tobacco: Never Used - Tobacco comment: Has quit intermittently, And I'm working on it now. 1st AM cigarette 10-15 minutes after awake. Most desired is that one, or last of day before bed. Prior 8 month quits, resumed after p regnancies completed. TO Substance Use Topics - Alcohol use: No - Drug use: No Reviewed current medications, allergies, past medical histor y, surgical history, family history and social history today. REVIEW OF SYSTEMS All other reviewed and negative other than HPI. VITALS: BP 124/76 Pulse 68 Resp 16 Wt 88.9 kg (196 lb) LMP 1 05/10/2009 BMI 35.28 kg/m? Last 4 Encounter Wt Readings: Date: Wt: 03/17/2019 88.9 kg (196 lb) 03/08/2019 88.9 kg (196 lb) 02/03/2019 86.6 kg (191 lb) 01/03/2019 87.6 kg (193 lb 1.6 oz) PHYSICAL EXAMINATION: General appearance: Well appearing, alert, in no acute distr ess, well-hydrated, well nourished. Skin: Skin color, texture, turgor normal, no suspicious rash es or lesions Head: Normocephalic, no masses, lesions, tenderness or abnor malities Lungs: lungs clear to auscultation. No wheezing, rhonchi, ra les Heart: RRR without murmur, gallop, or rubs. No ectopy Abdomen: Normal abdominal exam, Abdomen soft, non-tender. Otoniel wel sounds normal. No masses, organomegaly Extremities: No deformities, edema, skin discoloration, club kimber or cyanosis. Good capillary refill. Musculoskeletal: No joint swelling, deformity, or tenderness ASSESSMENT/PLAN: 1. Postmenopausal HRT (hormone replacement therapy) - ICD9: V07.4, ICD10: Z79.890 - Discussed risks and benefits of new medication with the raymond vale. Advised them to call if any side effects or questions. - follow up after trial of meds. - ESTRADIOL 0.0375 MG/24 HR WEEKLY TRANSDERMAL PATCH - PROGESTERONE MICRONIZED 100 MG CAPSULE 2. menopause age 43 - ICD9: 627.2, ICD10: N95.1 - PROGESTERONE MICRONIZED 100 MG CAPSULE Hugo Nava MD cnov on 2019-03-17 CNOV Office Visit (FAMPWS) Normal 03-17-20 19 [place] JAZLYN Jones ([id number]) 1965 F [place] Date Time Provider Department ([id number]) 03/17/19 11:20 AM HUGO NAVA During your visit today, we recorded the following informati on about you: Pulse Respiration Blood pressure Weight 68/minute 16/minute 124/76 88.9 kg Hugo Nava MD 03/17/2019 4:47 PM Signed Patient presents with: Symptomatic Menopause HPI: Patient presents today for office visit for follow up. This Team Access Model visit is a walk in encounter. It requ ired patient-provider interaction for the medical decision making as documented below. Still having issues with tolerating meds. Did not yet star t a lower dose of progesterone. Her insurance is giving her a diff icult time about covering the estogen she would like to use. Again has been intolerant to many different types. Still with same symptoms as before. No new issues. We discussed the need to not use unopposed estrogen. MEDICATIONS: Current Outpatient Medications Medication Sig - lancets (FREESTYLE LANCETS) 28 gauge misc USE FOUR T IMES DAILY DIRECTED - SYNTHROID 125 mcg tablet take 1 tablet by mouth once daily EXCEPT ON WEDNESDAY, TAKE 137 MCG - blood sugar diagnostic (FREESTYLE TEST) test strip TEST fo ur times a day - SYNTHROID 137 mcg tablet take 1 tablet by mouth ON A N EMPTY STOMACH, EVERY WEDNESDAY AND WEDNESDAY - Blood-Glucose Meter (FREESTYLE LITE METER) mon itoring kit 1 Each as needed. - Blood-Glucose Meter (FREESTYLE LITE METER) mon itoring kit 1 Each as needed. - estradiol (CLIMARA) 0.0375 mg/24 hr Apply 1 Patch as direc geoff one time a week. - progesterone micronized (PROMETRIUM) 100 mg ca psule Take 1 capsule by mouth every other day. TAKE WITH FOOD. No current facility-administered medications for this visit. ALLERGIES: ALLERGIES Allergen Reactions - Codeine GI Upset, Vomiting - Percocet [Oxycodone* Vomiting - Solumedrol [Methylp* Mental Status Change Made her rageful - Vicodin [Hydrocodon* Vomiting - Combipatch [Estradi* Intolerance feels wired, muscles hurt, lips/mouth burn, feels like asthm a flaring, nausea, dizziness. - Metformin Other: See Comments Myalgias. - Pepcid [Famotidine * Other: See Comments Dry eyes, mouth, rash, itching, anxiety - Tapazole [Methimazo* Hives PAST MEDICAL HISTORY Diagnosis Date - Abdominal pain, chronic, right upper quadrant - Asthma As a baby, then I outgrew it. - Cystocele, midline 05/13/2009 - Delayed emergence from anesthesia 09/27/2014 - Depression - Excessive or frequent menstruation Heavy periods - HSDD 10/21/2011 - Hypothyroidism should be on FRANCESCO synthroid. - Irregular menstrual cycle Irregular periods - menopause age 43 2009 in 2013 FSH 47 - Moderate dysplasia of cervix 2001 - Parent-child conflict 03/07/2013 - PMH - PAST MEDICAL HISTORY OF thyroid ablation/hypothyroid - Postmenopausal HRT (hormone replacement therapy) 12/13/2015 in 2014 took femHRT cried 11/2015 offer climara/prometrium - Rectocele 05/13/2009 - SVT (supraventricular tachycardia) (HCC) - Syncope 05/14/2013 -Reported that she had one episode of syncope at the OSH. -H ad the episode when she stood up. -No urinary incontinence or jerking movements. -Never had syncope episode before. -Last Echo stress test f or her chest pain was in 2011 (normal) Plan: -Repeat the Echo: normal - The left ventricle is normal in size. Left ventricular systo lic function is normal. EF = 63 ? 5% (2D biplane) - The right ventricle is normal in size. Right joel tricular systolic function is normal. - There are no significant valvular abnormalities. - Prior echocardiogram performed on 11/10/11 (stress echo). No significant change. - Tele - Tobacco use - Weight gain PAST SURGICAL HISTORY Procedure Laterality Date - CERVIX UTERI CONIZA LP ELCTRO EXCI 2001 LEEP-Cervix - COLONOSCOPY 04/2017 says nl - EGD W/O OR W/BRUSH/WASH 01/22/2014,2009 EGD - LAPAROSCOPIC CHOLEYCYSTECTOMY 05/19/2011 - LIGATE FALLOPIAN TUBE 2003 Tubal ligation - PAST SURGICAL HISTORY OF 1998 tubal - PAST SURGICAL HISTORY OF 2001 thyroid ablation - REMOVAL OF OVARY(S) 09/2014 laparoscopic left, CW, umbilical/upper abdominal adhesions s een benign FAMILY HISTORY Problem Relation Age of Onset - Diabetes Mother Type 2 stroke - Colon Cancer Father age 64 [place] - Diabetes Father Type 2 - Hypertension Father - Coronary Artery Disease Father Hx of [place] - Thyroid Sister hx of parathyroid disease/ hx of fibroids - other (healthy) Brother - other (healthy) Brother - Allergies Daughter - other (healthy) Daughter - other (healthy) Son - other (healthy) Son - other (healthy) Son - other (healthy) Son - Colon Cancer Paternal Aunt x5 - Colon Cancer Paternal Uncle x8 Social History Tobacco Use - Smoking status: Current Every Day Smoker Packs/day: 0.50 Types: Cigarettes Start date: 1985 - Smokeless tobacco: Never Used - Tobacco comment: Has quit intermittently, And I'm working on it now. 1st AM cigarette 10-15 minutes after awake. Most desire d is that one, or last of day before bed. Prior 8 month quits, resumed after pregnancies c ompleted. TO Substance Use Topics - Alcohol use: No - Drug use: No Reviewed current medications, allergies, past medical histor y, surgical history, family history and social history today. REVIEW OF SYSTEMS All other reviewed and negative other than HPI. VITALS: BP 124/76 Pulse 68 Resp 16 Wt 88.9 kg (196 lb) LMP 1 05/10/2009 BMI 35.28 kg/m? Last 4 Encounter Wt Readings: Date: Wt: 03/17/2019 88.9 kg (196 lb) 03/08/2019 88.9 kg (196 lb) 02/03/2019 86.6 kg (191 lb) 01/03/2019 87.6 kg (193 lb 1.6 oz) PHYSICAL EXAMINATION: General appearance: Well abi earing, alert, in no acute distress, well-hydrated, well nourished. Skin: Skin color, texture, turgor normal, no suspicious rash es or lesions Head: Normocephalic, no masses, lesions, tenderness or abnor malities Lungs: lungs clear to auscultation. No wheezing, rhonchi, ra les Heart: RRR without murmur, gallop, or rubs. No ectopy Abdomen: Normal abdominal exam, Abdomen soft, non-tender. Bowel sounds normal. No masses, organomegaly Extremities: No deformities, edema, skin discolo ration, clubbing or cyanosis. Good capillary refill. Musculoskeletal: No joint swelling, deformity, or tenderness ASSESSMENT/PLAN: 1. Postmenopausal HRT (hormone replacement therapy) - ICD9: V07.4, ICD10: Z79.890 - Discussed risks and benefi ts of new medication with the patient. Advised them to call if any side effects or questions. - follow up after trial of meds. - ESTRADIOL 0.0375 MG/24 HR WEEKLY TRANSDERMAL PATCH - PROGESTERONE MICRONIZED 100 MG CAPSULE 2. menopause age 43 - ICD9: 627.2, ICD10: N95.1 - PROGESTERONE MICRONIZED 100 MG CAPSULE Hugo Nava MD Referring Provider: SELF [200] Allergies As of Date: 03/17/2019 Noted Allergy Reaction CODEINE 09/27/2014 8 - GI Upset 11 - Vomiting PERCOCET (OXYCODONE-ACETAMINOPHEN)07/17/2011 11 - Vomiting SOLUMEDROL (METHYLPREDNISOLONE SO*01/22/2014 1 - Mental Stat us Change Comments: Made her rageful VICODIN (HYDROCODONE-ACETAMINOPHE*07/17/2011 11 - Vomiting COMBIPATCH (ESTRADIOL-NORETHINDRO*10/26/2016 5 - Intolerance Comments: feels wired, muscles hurt, lips/mouth burn, feels like asthma flaring, nausea, dizziness. METFORMIN 10/28/2017 14 - Other: See Comments Comments: Myalgias. PEPCID (FAMOTIDINE (PF)) 07/07/2016 14 - Other: See Comments Comments: Dry eyes, mouth, rash, itching, anxiety TAPAZOLE (METHIMAZOLE) 10/14/2005 4 - Hives Date Reviewed: 02/03/2019 Reviewed by: Yuly Rai - Fully Assessed Reason for Visit: Symptomatic Menopause [1448] Reason For Visit History Recorded Visit Diagnoses:Postmenopausal HRT (hormone replacement ther apy) [Z79.890] menopause age 43 [N95.1] Order(s):estradiol (CLIMARA) 0.0375 mg/2 4 hrApply 1 Patch as directed one time a week.Disp: 4 PatchRfl: 3 progesterone micronized (PROMETRIUM) 100 mg capsuleTake 1 ca psule by mouth every other day. TAKE WITH FOOD.Disp: Rfl: Prescriptions as of 03/17/2019 Sig: LANCETS 28 GAUGE USE FOUR TIMES DAILY DIREC* SYNTHROID 125 MCG TABLET take 1 tablet by mouth once d* BLOOD SUGAR DIAGNOSTIC STRIPS TEST four times a day SYNTHROID 137 MCG TABLET take 1 tablet by mouth ON AN * BLOOD-GLUCOSE METER KIT 1 Each as needed. BLOOD-GLUCOSE METER KIT 1 Each as needed. ESTRADIOL 0.0375 MG/24 HR WEE* Apply 1 Patch as directed one * PROGESTERONE MICRONIZED 100 M* Take 1 capsule by mouth every * Problem List As Of Date 03/17/2019 Noted Resolved Postablative hypothyroidism [E89.0] 04/06/2006 More... Excessive or frequent menstruation [N92.0] 01/05/20072011 Irregular menstrual cycle [N92.6] 01/05/2007 10/06/2011 Unspecified aftercare [Z51.89] 05/26/2011 10/06/2011 Abdominal pain, chronic, right upper quadrant [* 10/06/2011 Post-menopause [Z78.0] 10/21/2011 03/18/2015 More... URI (upper respiratory infection) [J06.9] 05/14/2013 015 More... Pneumonia [J18.9] 05/14/2013 07/11/2014 More... More... More... More... More... Adrenal disorder [E27.9] 05/24/2013 07/11/2014 hx of low vitamin D [E55.9] 06/01/2013 Panic disorder with agoraphobia [F40.01] 07/10/2013 Chronic fatigue fibromyalgia syndrome [R53.82, *07/12/2013 Marital conflict [Z63.0] 08/30/2013 07/11/2014 Blood pressure elevated without history of HTN *09/06/2014 Impaired glucose tolerance [R73.02] 09/06/2014 More... Ovarian cyst [N83.209] 09/24/2014 03/18/2015 SVT (supraventricular tachycardia) (HCC) [I47.1]09/27/2014 Delayed emergence from anesthesia [T88.59XA] 09/27/201409/25 On home oxygen therapy [Z99.81] 09/27/2014 12/13/2015 PTSD (post-traumatic stress disorder) [F43.10] 11/01/2014 Attention deficit hyperactivity disorder (ADHD)*11/08/2014 Recurrent major depressive disorder, in partial*07/09/2015 Encounter for screening mammogram for malignant*12/12/2015 0 11/09/2016 menopause age 43 [N95.1] Tobacco use [Z72.0] Postmenopausal HRT (hormone replacement therapy*12/13/2015 0 11/09/2016 Weight gain [R63.5] 10/19/2017 GERD without esophagitis [K21.9] 05/12/2017 More... Simple chronic bronchitis (HCC) [J41.0] 12/01/2017 More... Irritable bowel syndrome with diarrhea [K58.0] 12/14/2017 Systemic lupus erythematosus (HCC) [M32.9] 02/14/2018 Burning sensation of mouth [R20.8] 02/16/2018 Burning sensation of skin [R20.8] 02/16/2018 Sleep difficulties [G47.9] 02/16/2018 Mitral valve prolapse [I34.1] 02/23/2018 More... Screening for malignant neoplasm of the cervix *06/20/2018 Visit for pelvic exam [Z01.419] 06/20/2018 Encounter for screening mammogram for malignant*06/20/2018 Estrogen deficiency [E28.39] 06/20/2018 Adrenal adenoma, left [D35.02] 08/25/2018 More... Prescriptions ordered this encounter Disp Refills Start End ESTRADIOL 0.0375 MG/24 HR WEEKLY TRA* 4 Pa* 3 03/17/2019 Cmt: Suggested by insurance company Route: TRANSDERM. Sig: Apply 1 Patch as directed one time a week. PROGESTERONE MICRONIZED 100 MG CAPSU* 03/17/2019 Class: Med Update Route: ORAL Sig: Take 1 capsule by mouth every other day. TAKE WITH FOOD . Medications Discontinued During This Encounter Estradiol (VIVELLE-DOT) 0.0375 mg/24* 8 Pa* 11 03/01/2019 Route: TRANSDERMAL Sig: Apply 1 Patch as directed two times a week. Patient not taking: Reported on 03/17/2019 Disc: Reason for discontinue is not on file. progesterone micronized (PROMETRIUM)* 30 c* 11 02/03/2019 Route: ORAL Sig: Take 1 capsule by mouth daily at bedtime. TAKE WITH NOREEN D. Patient not taking: Reported on 03/08/2019 Disc: Reason for discontinue is not on file. alogliptin (NESINA) 12.5 mg tab 30 t* 11 01/26/2019 9 Sig: Take one tablet daily in the morning Patient not taking: Reported on 03/17/2019 Disc: Reason for discontinue is not on file. Encounter Status:Closed by HUGO NAVA MD on 03/17/19 progress on 2019-02 PROGRESS HNO ID: [id number] Normal 03-08-2019 [facility] Author: Hugo Dixon ([id number]) Service: ? Author Type: Physician Type: Progress Notes Filed: 03/08/2019 12:54 PM Note Text: Patient presents with: Recheck: started progestrone HPI: Patient presents today for office visit for follow up. This Team Access Model visit is a walk in encounter. It requ ired patient-provider interaction for the medical decision making as documented below. Nursing Notes: Sudha Pink ELIDA 03/08/2019 12:03 PM Signed Started progesterone and had side effects swelling, depressi on etc. So has stopped. Estrogen is in gel form currently and trying to get patch approved. Getting to many up and downs with gel. Had to stop the estrogen because couldn't take the ups and downs. We continue to attempt to adjust meds. She stopped it two da ys ago. We discussed risks of unopposed estrogen and importance of maria esther ng progesterone to her regimen. She is still waiting to see if patch gets approved. We discussed adding progesterone every other day t o start and see if we can work our way out. No chest pain or breathing issues. No breast tenderness. No vaginal bleeding. Had pap in November. Due for mammogram. MEDICATIONS: Current Outpatient Medications Medication Sig - SYNTHROID 125 mcg tablet take 1 tablet by mouth once daily EXCEPT ON WEDNESDAY, TAKE 137 MCG - SYNTHROID 137 mcg tablet take 1 tablet by mouth ON AN EMPT Y STOMACH, EVERY WEDNESDAY AND WEDNESDAY - Estradiol (VIVELLE-DOT) 0.0375 mg/24 hr Apply 1 Patch as d irected two times a week. - progesterone micronized (PROMETRIUM) 100 mg capsule Take 1 capsule by mouth daily at bedtime. TAKE WITH FOOD. (Patient not taking: Reported on 03/08/2019 ) - alogliptin (NESINA) 12.5 mg tab Take one tablet daily in t he morning - lancets (FREESTYLE LANCETS) 28 gauge misc USE FOUR TIMES D AILY DIRECTED - blood sugar diagnostic (FREESTYLE TEST) test strip TEST fo ur times a day - Blood-Glucose Meter (FREESTYLE LITE METER) monitoring kit 1 Each as needed. - Blood-Glucose Meter (FREESTYLE LITE METER) monitoring kit 1 Each as needed. No current facility-administered medications for this visit. ALLERGIES: ALLERGIES Allergen Reactions - Codeine GI Upset, Vomiting - Percocet [Oxycodone* Vomiting - Solumedrol [Methylp* Mental Status Change Made her rageful - Vicodin [Hydrocodon* Vomiting - Combipatch [Estradi* Intolerance feels wired, muscles hurt, lips/mouth burn, feels like asthm a flaring, nausea, dizziness. - Metformin Other: See Comments Myalgias. - Pepcid [Famotidine * Other: See Comments Dry eyes, mouth, rash, itching, anxiety - Tapazole [Methimazo* Hives PAST MEDICAL HISTORY Diagnosis Date - Abdominal pain, chronic, right upper quadrant - Asthma As a baby, then I outgrew it. - Cystocele, midline 05/13/2009 - Delayed emergence from anesthesia 09/27/2014 - Depression - Excessive or frequent menstruation Heavy periods - HSDD 10/21/2011 - Hypothyroidism should be on FRANCESCO synthroid. - Irregular menstrual cycle Irregular periods - menopause age 43 2009 in 2012 FSH 47 - Moderate dysplasia of cervix 2001 - Parent-child conflict 03/07/2013 - PMH - PAST MEDICAL HISTORY OF thyroid ablation/hypothyroid - Postmenopausal HRT (hormone replacement therapy) 12/13/2015 in 2014 took femHRT cried 11/2015 offer climara/prometrium - Rectocele 05/13/2009 - SVT (supraventricular tachycardia) (HCC) - Syncope 05/14/2013 -Reported that she had one episode of syncope at the OSH. -H ad the episode when she stood up. -No urinary incontinence or jerki ng movements. -Never had syncope episode before. -Last Echo stress test fo r her chest pain was in 2011 (normal) Plan: -Repeat the Echo: normal - T he left ventricle is normal in size. Left ventricular systolic funct ion is normal. EF = 63 ? 5% (2D biplane) - The right ventricle is normal in size. Right ventricular systolic function is normal. - There are no sign ificant valvular abnormalities. - Prior echocardiogram performed on 11/10/11 (stress echo). No significant change. - Tele - Tobacco use - Weight gain PAST SURGICAL HISTORY Procedure Laterality Date - CERVIX UTERI CONIZA LP ELCTRO EXCI 2001 LEEP-Cervix - COLONOSCOPY 04/2017 says nl - EGD W/O OR W/BRUSH/WASH 01/22/2014,2009 EGD - LAPAROSCOPIC CHOLEYCYSTECTOMY 05/19/2011 - LIGATE FALLOPIAN TUBE 2003 Tubal ligation - PAST SURGICAL HISTORY OF 1998 tubal - PAST SURGICAL HISTORY OF 2001 thyroid ablation - REMOVAL OF OVARY(S) 09/2014 laparoscopic left, CW, umbilical/upper abdominal adhesions s een benign FAMILY HISTORY Problem Relation Age of Onset - Diabetes Mother Type 2 stroke - Colon Cancer Father age 64 [place] - Diabetes Father Type 2 - Hypertension Father - Coronary Artery Disease Father Hx of [place] - Thyroid Sister hx of parathyroid disease/ hx of fibroids - other (healthy) Brother - other (healthy) Brother - Allergies Daughter - other (healthy) Daughter - other (healthy) Son - other (healthy) Son - other (healthy) Son - other (healthy) Son - Colon Cancer Paternal Aunt x5 - Colon Cancer Paternal Uncle x8 Social History Tobacco Use - Smoking status: Current Every Day Smoker Packs/day: 0.50 Types: Cigarettes Start date: 1985 - Smokeless tobacco: Never Used - Tobacco comment: Has quit intermittently, And I'm working on it now. 1st AM cigarette 10-15 minutes after awake. Most desired is that one, or last of day before bed. Prior 8 month quits, resumed after p regbuddy completed. TO Substance Use Topics - Alcohol use: No - Drug use: No Reviewed current medications, allergies, past medical histor y, surgical history, family history and social history today. REVIEW OF SYSTEMS Still some reflux. All other reviewed and negative other than HPI. HEALTH MAINTENANCE: Reviewed health maintenance issues today Recommended mammogram VITALS: BP 132/82 Pulse 84 Wt 88.9 kg (196 lb) LMP 03/10/2010 BMI 35.28 kg/m? Last 4 Encounter Wt Readings: Date: Wt: 03/08/2019 88.9 kg (196 lb) 02/03/2019 86.6 kg (191 lb) 01/03/2019 87.6 kg (193 lb 1.6 oz) 2018 86 kg (189 lb 9.6 oz) PHYSICAL EXAMINATION: General appearance: Well appearing, alert, in no acute distr ess, well-hydrated, well nourished. Skin: Skin color, texture, turgor normal, no suspicious rash es or lesions Lungs: lungs clear to auscultation. No wheezing, rhonchi, ra les Heart: RRR without murmur, gallop, or rubs. No ectopy Abdomen: Normal abdominal exam, Abdomen soft, non-tender. Otoniel wel sounds normal. No masses, organomegaly Extremities: No deformities, edema, skin discoloration, club kimber or cyanosis. Good capillary refill. Musculoskeletal: No joint swelling, deformity, or tenderness ASSESSMENT/PLAN: 1. Postmenopausal - ICD9: V49.81, ICD10: Z78.0 (primary diag nosis) - readd progesterone every other day. Call with update in tw o weeks. - call if any issues. 2. Hot flashes - ICD9: 782.62, ICD10: R23.2 - as above. 3. GERD without esophagitis - ICD9: 530.81, ICD10: K21.9 - continue to follow. Hugo Nava MD RTO in two months and prn. cnov on 2019-03-08 CNOV Office Visit (FAMPWS) Normal 03-08-[address] [place] [address] JAZLYN Jones ([id number]) 1965 [facility] Date Time Provider Department ([id number]) 03/08/19 11:20 AM HUGO NAVAWS During your visit today, we recorded the following informati on about you: Pulse Blood pressure Weight 84/minute 132/82 88.9 kg Sudha Pink ELIDA 03/08/2019 12:03 PM Signed Started progesterone and had side effects swelling, depressi on etc. So has stopped. Estrogen is in gel form currently and trying to get patch approved. Getting to many up and downs with gel. Had to stop the estro gen because couldn't take the ups and downs. Hugo Nava MD 03/08/2019 12:54 PM Signed Patient presents with: Recheck: started progestrone HPI: Patient presents today for office visit for follow up. This Team Access Model visit is a walk in encounter. It requ ired patient-provider interaction for the medical decision making as documented below. Nursing Notes: Sudha Pink ELIDA 03/08/2019 12:03 PM Signed Started progesterone and had side effects swelling, depressi on etc. So has stopped. Estrogen is in gel form currently and trying to get patch approved. Getting to many up and downs with gel. Had to stop the estro gen because couldn't take the ups and downs. We continue to attempt to adjust meds. She stopped it two da ys ago. We discussed risks of unopposed estrogen an d importance of adding progesterone to her regimen. She is still waiting to see if patc h gets approved. We discussed adding progesterone every other day to start and see if we can work our way out. No chest pain or breathing issues. No breast ten derness. No vaginal bleeding. Had pap in November. Due for mammogram. MEDICATIONS: Current Outpatient Medications Medication Sig - SYNTHROID 125 mcg tablet take 1 tablet by mouth once daily EXCEPT ON WEDNESDAY, TAKE 137 MCG - SYNTHROID 137 mcg tablet take 1 tablet by mouth ON A N EMPTY STOMACH, EVERY WEDNESDAY AND WEDNESDAY - Estradiol (VIVELLE-DOT) 0. 0375 mg/24 hr Apply 1 Patch as directed two times a week. - progesterone micronized (PROMETRIUM) 100 mg ca psule Take 1 capsule by mouth daily at bedtime. TAKE WITH FOOD. (Patient not t aking: Reported on 03/08/2019 ) - alogliptin (NESINA) 12.5 mg tab Take one tablet daily in t he morning - lancets (FREESTYLE LANCETS) 28 gauge misc USE FOUR T IMES DAILY DIRECTED - blood sugar diagnostic (FREESTYLE TEST) test strip TEST fo ur times a day - Blood-Glucose Meter (FREESTYLE LITE METER) mon itoring kit 1 Each as needed. - Blood-Glucose Meter (FREESTYLE LITE METER) mon itoring kit 1 Each as needed. No current facility-administered medications for this visit. ALLERGIES: ALLERGIES Allergen Reactions - Codeine GI Upset, Vomiting - Percocet [Oxycodone* Vomiting - Solumedrol [Methylp* Mental Status Change Made her rageful - Vicodin [Hydrocodon* Vomiting - Combipatch [Estradi* Intolerance feels wired, muscles hurt, lips/mouth burn, feels like asthm a flaring, nausea, dizziness. - Metformin Other: See Comments Myalgias. - Pepcid [Famotidine * Other: See Comments Dry eyes, mouth, rash, itching, anxiety - Tapazole [Methimazo* Hives PAST MEDICAL HISTORY Diagnosis Date - Abdominal pain, chronic, right upper quadrant - Asthma As a baby, then I outgrew it. - Cystocele, midline 05/13/2009 - Delayed emergence from anesthesia 09/27/2014 - Depression - Excessive or frequent menstruation Heavy periods - HSDD 10/21/2011 - Hypothyroidism should be on FRANCESCO synthroid. - Irregular menstrual cycle Irregular periods - menopause age 43 2009 in 2012 FSH 47 - Moderate dysplasia of cervix 2001 - Parent-child conflict 03/07/2013 - PMH - PAST MEDICAL HISTORY OF thyroid ablation/hypothyroid - Postmenopausal HRT (hormone replacement therapy) 12/13/2015 in 2014 took femHRT cried 11/2015 offer climara/prometrium - Rectocele 05/13/2009 - SVT (supraventricular tachycardia) (HCC) - Syncope 05/14/2013 -Reported that she had one episode of syncope at the OSH. -H ad the episode when she stood up. -No urinary incontinence or jerking movements. -Never had syncope episode before. -Last Echo stress test f or her chest pain was in 2011 (normal) Plan: -Repeat the Echo: normal - The left ventricle is normal in size. Left ventricular systo lic function is normal. EF = 63 ? 5% (2D biplane) - The right ventricle is normal in size. Right joel tricular systolic function is normal. - There are no significant valvular abnormalities. - Prior echocardiogram performed on 11/10/11 (stress echo). No significant change. - Tele - Tobacco use - Weight gain PAST SURGICAL HISTORY Procedure Laterality Date - CERVIX UTERI CONIZA LP ELCTRO EXCI 2001 LEEP-Cervix - COLONOSCOPY 04/2017 says nl - EGD W/O OR W/BRUSH/WASH 01/22/2014,2009 EGD - LAPAROSCOPIC CHOLEYCYSTECTOMY 05/19/2011 - LIGATE FALLOPIAN TUBE 2003 Tubal ligation - PAST SURGICAL HISTORY OF 1998 tubal - PAST SURGICAL HISTORY OF 2001 thyroid ablation - REMOVAL OF OVARY(S) 09/2014 laparoscopic left, CW, umbilical/upper abdominal adhesions s een benign FAMILY HISTORY Problem Relation Age of Onset - Diabetes Mother Type 2 stroke - Colon Cancer Father age 64 [place] - Diabetes Father Type 2 - Hypertension Father - Coronary Artery Disease Father Hx of [place] - Thyroid Sister hx of parathyroid disease/ hx of fibroids - other (healthy) Brother - other (healthy) Brother - Allergies Daughter - other (healthy) Daughter - other (healthy) Son - other (healthy) Son - other (healthy) Son - other (healthy) Son - Colon Cancer Paternal Aunt x5 - Colon Cancer Paternal Uncle x8 Social History Tobacco Use - Smoking status: Current Every Day Smoker Packs/day: 0.50 Types: Cigarettes Start date: 1985 - Smokeless tobacco: Never Used - Tobacco comment: Has quit intermittently, And I'm working on it now. 1st AM cigarette 10-15 minutes after awake. Most desire d is that one, or last of day before bed. Prior 8 month quits, resumed after pregnancies c ompleted. TO Substance Use Topics - Alcohol use: No - Drug use: No Reviewed current medications, allergies, past medical histor y, surgical history, family history and social history today. REVIEW OF SYSTEMS Still some reflux. All other reviewed and negative other than HPI. HEALTH MAINTENANCE: Reviewed health maintenance issues today Recommended mammogram VITALS: BP 132/82 Pulse 84 Wt 88.9 kg (196 lb) LMP 03/10/2010 BMI 35.28 kg/m? Last 4 Encounter Wt Readings: Date: Wt: 03/08/2019 88.9 kg (196 lb) 02/03/2019 86.6 kg (191 lb) 01/03/2019 87.6 kg (193 lb 1.6 oz) 2018 86 kg (189 lb 9.6 oz) PHYSICAL EXAMINATION: General appearance: Well abi earing, alert, in no acute distress, well-hydrated, well nourished. Skin: Skin color, texture, turgor normal, no suspicious rash es or lesions Lungs: lungs clear to auscultation. No wheezing, rhonchi, ra les Heart: RRR without murmur, gallop, or rubs. No ectopy Abdomen: Normal abdominal exam, Abdomen soft, non-tender. Bowel sounds normal. No masses, organomegaly Extremities: No deformities, edema, skin discolo ration, clubbing or cyanosis. Good capillary refill. Musculoskeletal: No joint swelling, deformity, or tenderness ASSESSMENT/PLAN: 1. Postmenopausal - ICD9: V49.81, ICD10: Z78.0 (primary diag nosis) - readd progesterone every other day. Call with update in tw o weeks. - call if any issues. 2. Hot flashes - ICD9: 782.62, ICD10: R23.2 - as above. 3. GERD without esophagitis - ICD9: 530.81, ICD10: K21.9 - continue to follow. Hugo Nava MD RTO in two months and prn. Referring Provider: SELF [[id number]] Allergies As of Date: 03/08/2019 Noted Allergy Reaction CODEINE 09/27/2014 8 - GI Upset 11 - Vomiting PERCOCET (OXYCODONE-ACETAMINOPHEN)07/17/2011 11 - Vomiting SOLUMEDROL (METHYLPREDNISOLONE SO*01/22/2014 1 - Mental Stat us Change Comments: Made her rageful VICODIN (HYDROCODONE-ACETAMINOPHE*07/17/2011 11 - Vomiting COMBIPATCH (ESTRADIOL-NORETHINDRO*10/26/2016 5 - Intolerance Comments: feels wired, muscles hurt, lips/mouth burn, feels like asthma flaring, nausea, dizziness. METFORMIN 10/28/2017 14 - Other: See Comments Comments: Myalgias. PEPCID (FAMOTIDINE (PF)) 07/07/2016 14 - Other: See Comments Comments: Dry eyes, mouth, rash, itching, anxiety TAPAZOLE (METHIMAZOLE) 10/14/2005 4 - Hives Date Reviewed: 02/03/2019 Reviewed by: Yuly Rai - Fully Assessed Reason for Visit: Recheck [92] Cmt: started progestrone Primary Visit Diagnosis:Postmenopausal [Z78.0] Other Visit Diagnoses:Hot flashes [R23.2] GERD without esophagitis [K21.9] Prescriptions as of 03/08/2019 Sig: SYNTHROID 125 MCG TABLET take 1 tablet by mouth once d* SYNTHROID 137 MCG TABLET take 1 tablet by mouth ON AN * ESTRADIOL 0.0375 MG/24 HR MANJU* Apply 1 Patch as directed two * PROGESTERONE MICRONIZED 100 M* Take 1 capsule by mouth daily * Patient not taking: Reported on 03/08/2019 ALOGLIPTIN 12.5 MG TABLET Take one tablet daily in the * LANCETS 28 GAUGE USE FOUR TIMES DAILY DIREC* BLOOD SUGAR DIAGNOSTIC STRIPS TEST four times a day BLOOD-GLUCOSE METER KIT 1 Each as needed. BLOOD-GLUCOSE METER KIT 1 Each as needed. Problem List As Of Date 03/08/2019 Noted Resolved Postablative hypothyroidism [E89.0] 04/06/2006 More... Excessive or frequent menstruation [N92.0] 01/05/20072011 Irregular menstrual cycle [N92.6] 01/05/2007 10/06/2011 Unspecified aftercare [Z51.89] 05/26/2011 10/06/2011 Abdominal pain, chronic, right upper quadrant [* 10/06/2011 Post-menopause [Z78.0] 10/21/2011 03/18/2015 More... URI (upper respiratory infection) [J06.9] 05/14/2013 015 More... Pneumonia [J18.9] 05/14/2013 07/11/2014 More... More... More... More... More... Adrenal disorder [E27.9] 05/24/2013 07/11/2014 hx of low vitamin D [E55.9] 06/01/2013 Panic disorder with agoraphobia [F40.01] 07/10/2013 Chronic fatigue fibromyalgia syndrome [R53.82, *07/12/2013 Marital conflict [Z63.0] 08/30/2013 07/11/2014 Blood pressure elevated without history of HTN *09/06/2014 Impaired glucose tolerance [R73.02] 09/06/2014 More... Ovarian cyst [N83.209] 09/24/2014 03/18/2015 SVT (supraventricular tachycardia) (HCC) [I47.1]09/27/2014 Delayed emergence from anesthesia [T88.59XA] 09/27/201409/25 On home oxygen therapy [Z99.81] 09/27/2014 12/13/2015 PTSD (post-traumatic stress disorder) [F43.10] 11/01/2014 Attention deficit hyperactivity disorder (ADHD)*11/08/2014 Recurrent major depressive disorder, in partial*07/09/2015 Encounter for screening mammogram for malignant*12/12/2015 0 11/09/2016 menopause age 43 [N95.1] Tobacco use [Z72.0] Postmenopausal HRT (hormone replacement therapy*12/13/2015 0 11/09/2016 Weight gain [R63.5] 10/19/2017 GERD without esophagitis [K21.9] 05/12/2017 More... Simple chronic bronchitis (HCC) [J41.0] 12/01/2017 More... Irritable bowel syndrome with diarrhea [K58.0] 12/14/2017 Systemic lupus erythematosus (HCC) [M32.9] 02/14/2018 Burning sensation of mouth [R20.8] 02/16/2018 Burning sensation of skin [R20.8] 02/16/2018 Sleep difficulties [G47.9] 02/16/2018 Mitral valve prolapse [I34.1] 02/23/2018 More... Screening for malignant neoplasm of the cervix *06/20/2018 Visit for pelvic exam [Z01.419] 06/20/2018 Encounter for screening mammogram for malignant*06/20/2018 Estrogen deficiency [E28.39] 06/20/2018 Adrenal adenoma, left [D35.02] 08/25/2018 More... Visit Notes: >> Sudha Pink LPN Wed Mar 08, 2019 11:52 AM Status: Signed Started progesterone and had side effects swelling, depressi on etc. So has stopped. Estrogen is in gel form currently and trying to get patch approved. Getting to many up and downs with gel. Had to stop the estrogen because couldn't take the ups and downs. Disposition: Return in about 2 months (around 05/08/2019). Follow-up and Disposition History Recorded Encounter Status:Closed by HUGO NAVA MD on 03/08/19 tsh on 2019-02-16 TSH Qn 1.920 0.400-5.500 uU/mL Normal 02-16-2019 [facility] ([id number]) Comment: Performed By: #### TSH #### [facility] [address] [place], [place] [address] urea nitrogen on 12-12-13 Urea nitrogen [Mass/Vol] 15 6 - 23 mg/dL Normal 12-07 [facility] (00 000) Comment: Performed By: #### ALT #### [facility] [address] [place] [address] sedimentation rate, erythrocyte on 2018-12-07 SEDIMENTATION RATE, 22 0 - 30 mm/h Normal 12-07-[address] [facility] ( [id number]) Comment: Performed By: #### ESRWS ### # [facility] [id number] [place] [address] follow up (rheumatology) on 2018-12-07 Follow Up Chief Complaint Normal 12-07-2018 [facility] (Rheumatology) (0000 0) lupus/sjogren's follow up History of Present Illness The patient is being seen for follow-up of systemic lupus er ythematosus. Interval Events: still not f eeling well. has flares of feeling feverish and achy. Now also has dizziness--stress test ok and was scheduled for tilt table test today. Pt states dizziness today also making her nauseated. Associated symptoms: myalgia. Medications: the patient is adherent to her medication regimen, but she denies medication side effects. (hasn't been able to work for 4 years. Tried to apply for [employer]) Review of Systems Constitutional: feeling tired. Cardiovascular: fast heart rate. Gastrointestinal: nausea. Musculoskeletal: arthralgias, myalgias and joint stiffness. Neurological: dizziness. Active Problems Adult onset hypothyroidism (244.8) (E03.8) BMI 33.0-33.9,adult (V85.33) (Z68.33) GERD (gastroesophageal reflux disease) (530.81) (K21.9) Low vitamin D level (790.6) (R79.89) Menopause (627.2) (Z78.0) Nocturnal hypoxia (327.24) (G47.34) Situational anxiety (300.09) (F41.8) Sjogren's syndrome with keratoconjunctivitis sicca (710.2) ( M35.01) Systemic lupus erythematosus with other organ involvement (7 10.0) (M32.19) dsDNA + Past Medical History History of BMI over 35 Resolved Date: 03 Aug 2018 History of Elevated d-dimer (790.92) (R79.89) Resolved Date: 23 Apr 2016 History of Feeling of chest tightness (786.59) (R07.89) Resolved Date: 21 Oct 2016 History of muscle pain (V13.59) (Z87.39) Resolved Date: 27 Jan 2017 History of Long-term use of Plaquenil (V58.69) (Z79.899) Resolved Date: 07 Dec 2018 History of Polyarthralgia (719.49) (M25.50) Resolved Date: 23 Apr 2016 History of Racing heart beat (785.0) (R00.0) Resolved Date: 23 Apr 2016 History of Rash (782.1) (R21) Resolved Date: 23 Apr 2016 Surgical History History of Oophorectomy Family History Family history of type 2 diabetes mellitus (V18.0) (Z83.3) Family history of hypertension (V17.49) (Z82.49) Family history of myocardial infarction (V17.3) (Z82.49) Family history of S/P CABG (coronary artery bypass graft) Family history of Rheumatoid lung Family history of Rheumatoid lung Family history of systemic lupus erythematosus (V19.4) (Z82. 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 Hydroxychloroquine Sulfate 2 00 MG Oral Tablettake 1 tablet by mouth once daily MDD:5mg/kg/d Levothyroxine Sodium 125 MCG Oral TabletPt takes 1 tablet Wednesday through Wednesday. Levothyroxine Sodium 137 MCG Oral TabletTAKE 1 TABLET ON SUN DAYS RA Natural Magnesium 250 MG Oral Tablet Ventolin HFA 108 (90 Base) MCG/ACT Inhalation Aerosol Soluti on Vitals Vital Signs Recorded: 07Dec2018 07:55AM Ruwcnhnoasd23.9 F Heart Rate78 Vghxymwq249 Pwmzotjpe73 Oqfzbw233 lb BMI Gjfaaomjee14.83 BSA Calculated1.9 O2 Ikjvwwnyjc35 Physical Exam Constitutional General appearance: Alert and in no acute distress. but look s tired. Pulmonary Respiratory assessment: No r espiratory distress, normal respiratory rhythm and effort. Cardiovascular Exam for edema: No peripheral edema. Musculoskeletal Examination of gait: Normal. Inspection of digits and nails: No clubbing or cyanosis of the fingernails. Inspection/palpation of join ts: No joint swelling seen. (no swelling noted). Appearance - no erythema, no ecchymosis, no amputations, no deformity, no asymmetry, no contractures and normal spinal curvat ure. Palpation - no increased warmth, no masses, no click an d no crepitus. Skin Skin inspection: Normal skin color and pigmentation, normal skin turgor and no visible rash. tanned. Psychiatric Orientation: Oriented to person, place, and time. Mood and affect: Normal. Diagnoses/Problems Systemic lupus erythematosus with other organ involvement (7 10.0) (M32.19) dsDNA + Sjogren's syndrome with keratoconjunctivitis sicca (710.2) ( M35.01) History of Long-term use of Plaquenil (V58.69) (Z79.899) Dizziness (780.4) (R42) BMI 33.0-33.9,adult (V85.33) (Z68.33) Orders Avoid exposure to cigarette smoke.; Status:Complete; D one: [id number] 08:07AM Ordered; For:BMI 33.0-33.9,adult; Ordered By:Che Benites; Ophthalmology Follow-Up Outpatient Follow-up Status: Hold Fo r - Scheduling Requested for: [id number] Ordered Stat;For: PMH: Long- term use of Plaquenil; Ordered By: Latasha Benites Performed: Due: 07Mar2019 Stop: Hydroxychloroquine Sulfate 200 MG Oral Tablet Rx By: Latasha Benites; Dis pense: 0 Days ; #: Sufficient Tablet; Refill: 11;For: Systemic lupus erythematosus with other organ involvement; FRANCESCO = N; Record; Msg to Pharmacy: dose is within 5mg/kg/d maximum ALT - Alanine Aminotransfera se, Serum; Specimen Source:Blood (BLD); Status:Active; Requested for:[id number]; Perform:Lab Services - Lab T o Draw (Blood Test); Due:07Jul2019;Ordered; For:Systemic lupus erythematosus with other organ involvement; Ordered By:Latasha Benites; Anti-dsDNA (Double Stranded) Antibodies; Specimen Source:Blo od (BLD); Status:Active; Requested for:[id number]; Perform:Lab Services - Lab T o Draw (Blood Test); Due:07Jul2019;Ordered; For:Systemic lupus erythematosus with other organ involvement; Ordered By:Latasha Benites; AST; Specimen Source:Blood (BLD); Status:Active; Requested f or:[id number]; Perform:Lab Services - Lab T o Draw (Blood Test); Due:07Jul2019;Ordered; For:Systemic lupus erythematosus with other organ involvement; Ordered By:Latasha Benites; Blood Urea Nitrogen, Serum; Specimen Source:Blood (BLD); Status:Active; Requested for:[id number]; Perform:Lab Services - Lab T o Draw (Blood Test); Due:07Jul2019;Ordered; For:Systemic lupus erythematosus with other organ involvement; Ordered By:Latasha Benites; C Reactive Protein, Serum; S pecimen Source:Blood (BLD); Status:Active; Requested for:[id number]; Perform:Lab Services - Lab T o Draw (Blood Test); Due:07Jul2019;Ordered; For:Systemic lupus erythematosus with other organ involvement; Ordered By:Latasha Benites; C3 Complement, Serum; Specimen Source:Blood (BLD); Status: Active; Requested for:[id number]; Perform:Lab Services - Lab T o Draw (Blood Test); Due:07Jul2019;Ordered; For:Systemic lupus erythematosus with other organ involvement; Ordered By:Latasha Benites; C4 Complement, Serum; Specimen Source:Blood (BLD); Status: Active; Requested for:[id number]; Perform:Lab Services - Lab T o Draw (Blood Test); Due:07Jul2019;Ordered; For:Systemic lupus erythematosus with other organ involvement; Ordered By:Latasha Benites; Complete Blood Count + Diffe rential; Specimen Source:Blood (BLD); Status:Active; Requested for:[id number]; Perform:Lab Services - Lab T o Draw (Blood Test); Due:07Jul2019;Ordered; For:Systemic lupus erythematosus with other organ involvement; Ordered By:Latasha Benites; Creatinine, Serum; Specimen Source:Blood (BLD); Status:Activ e; Requested for:[id number]; Perform:Lab Services - Lab T o Draw (Blood Test); Due:07Jul2019;Ordered; For:Systemic lupus erythematosus with other organ involvement; Ordered By:Latasha Benites; Sedimentation Rate, Erythrocyte; Specimen Source:Blood (BLD); Status:Active; Requested for:[id number]; Perform:Lab Services - Lab T o Draw (Blood Test); Due:07Jul2019;Ordered; For:Systemic lupus erythematosus with other organ involvement; Ordered By:Latasha Benites; Provider Impressions Patient's primary care provi chay manages all preventive care testing, wellness exams, diabetic monitoring (if applicable) and vaccinations. Age appropriate recommendations made The patient's labs, radiolog y images and reports, and other tests since previous appointment were obtained, reviewed, and summarized as applicable from the physician portal, electronic medical records s ystems and/or outside source s. Pertinent positive and negative findings were considered in medical decision making. All questions were answered and the patient was counseled regarding the diagnosis, prognosis, risk and benefits of the various treatment options and the importance of compliance with therapy. Patient Discussion/Summary the following was sent to pa tient on the patient portal to summarize today's care lupus with h/o anti-dsDNA +. Plaquenil is not really helping as she still has symptoms stop plaquenil dizziness --work up in progr ess. Plaquenil very rarely causes dizziness; timeline of symptoms doesn't really correlate with dizziness being caused by plaquenil but we will see how she does with stopping it. Still recommend annual eye checks even off plaquenil Labs were done to assess disease activity It was a pleasure seeing you today Please call if symptoms worsen patient education handout given (by portal) regarding: plaqu enil Follow up in 4 months If you had labs/xrays done t sara, we will notify you of your results by phone, mail or through the patient portal. Please call if you don't receive your test results in 7 days Patient Education Homegoing instructions As always, a healthy lifesty le helps chronic diseases. These are all the goals you should strive to achieve to improve your overall health: blood pressure less than 130/85 BMI of 21-29.99 or a waist circumference that is 1/2 of your height fasting blood sugar less dionicio n 107 (if you are diabetic, aim for your A1c to be below 6.4% LDL cholesterol below 130 avoid smoking manage your stress see your primary care doctor for preventive exams get your immunizations Signatures Electronically signed by : Antonieta Benites MD; Dec 07 2018 8:12AM EST (Author) creatinine on 12-07 Creatinine [Mass/Vol] >60 >60 Normal 12-08-19 19 [facility] ([id number]) Comment: Performed By: #### ALT #### [facility] [address] [place] [address] Result Comment: CALCULATIONS OF ESTIMATED GFR ARE PERFORMED USING THE MDRD STUDY EQUATIO N FOR THE IDMS-TRACEABLE CREATININE ME THODS. CLIN CHEM 2007;53:766-72 Creatinine [Mass/Vol] 0.84 0.50 - 1.05 mg/dL Normal 2018 [facility] (00 000) Comment: Performed By: #### ALT #### [facility] [address] [place] [address] cbc and differential on 2018-12-07 % AUTOMATED IMMATURE GRAN 0.4 0.0 - 0.9 % Normal 11-24 [facility] (00 000) Comment: Result Comment: Percent diff erential counts (%) should be interpreted in the context of the absolute cell counts (cells/L). Performed By: #### ESRWS ### # [facility] [address] [place] [address] Basophils (Bld) 0.06 0.00 - 0.10 x10E9/L Normal 12-07-2018 [facility] [#/Vol] Center (00 000) Comment: Performed By: #### ESRWS ### # [facility] [address] [place] [address] Basophils/100 WBC (Bld) 0.5 0.0 - 2.0 % Normal 2018 [facility] ([id number]) Comment: Performed By: #### ESRWS ### # [facility] [address] [place] [address] Eosinophils (Bld) 0.24 0.00 - 0.70 x10E9/L Normal 12-07-2018 [facility] [#/Vol] Center (00 000) Comment: Performed By: #### ESRWS ### # [facility] [address] [place] [address] Eosinophils/100 WBC (Bld) 1.9 0.0 - 6.0 % Normal 11-24 [facility] (00 000) Comment: Performed By: #### ESRWS ### # [facility] [address] [place] [address] Erythrocyte distribution 12.3 11.5 - 14.5 % Normal [facility] width (RBC) [Ratio] Center ([address]) Comment: Performed By: #### ESRWS ### # [facility] [address] [place] [address] Hematocrit (Bld) [Volume 51.2 36.0 - 46.0 % High [facility]] Center (00 000) Comment: Performed By: #### ESRWS ### # [facility] [address] [place] [address] Hemoglobin (Bld) 16.4 12.0 - 16.0 g/dL High 12-07-2018 [facility] [Mass/Vol] [place] (0 0000) Comment: Performed By: #### ESRWS ### # [facility] [address] [place] [address] Lymphocytes (Bld) 4.92 1.20 - 4.80 x10E9/L High 12-07-2018 [facility] [#/Vol] [place] (00 000) Comment: Performed By: #### ESRWS ### # [facility] [address] [place] [address] Lymphocytes/100 WBC (Bld) 39.5 13.0 - 44.0 % Normal [facility] (00 000) Comment: Performed By: #### ESRWS ### # [facility] [address] [place] [address] MCHC (RBC) [Mass/Vol] 32.0 32.0 - 36.0 g/dL Normal 2018 [facility] (00 000) Comment: Performed By: #### ESRWS ### # [facility] [address] [place] [address] MCV (RBC) [Entitic vol] 100 80 - 100 fL Normal 2018 [facility] (86898) Comment: Performed By: #### ESRWS ### # [facility] [address] [place] [address] Monocytes (Bld) 1.09 0.10 - 1.00 x10E9/L High 12-07-2018 [facility] [#/Vol] [place] (00 000) Comment: Performed By: #### ESRWS ### # [facility] [address] [place] [address] Monocytes/100 WBC (Bld) 8.8 2.0 - 10.0 % Normal 12-07 [facility] (00 000) Comment: Performed By: #### ESRWS ### # [facility] [address] [place] [address] Neutrophils (Bld) 6.08 1.20 - 7.70 x10E9/L Normal 12-07-2018 [facility] [#/Vol] [facility] (00 000) Comment: Performed By: #### ESRWS ### # [facility] [address] [place] [address] Neutrophils/100 WBC (Bld) 48.9 40.0 - 80.0 % Normal [facility] (00 000) Comment: Performed By: #### ESRWS ### # [facility] [address] [place] [address] Nucleated RBC/100 WBC 0.0 0.0-0.0 /100 WBC Normal 12-08-19 [facility] (Bld) [Ratio] Center (57990) Comment: Performed By: #### ESRWS ### # [facility] [address] [place] [address] Platelets (Bld) [#/Vol] 287 150 - 450 x10E9/L Normal 2018 [facility] (00 000) Comment: Performed By: #### ESRWS ### # [facility] [address] [place] [address] RBC (Bld) [#/Vol] 5.13 4.00 - 5.20 x10E12/L Normal 12-07-2018 [facility] (00 000) Comment: Performed By: #### ESRWS ### # [facility] [address] [place] [address] WBC (Bld) [#/Vol] 12.4 4.4 - 11.3 x10E9/L High 12-07-2018 [facility] (73200) Comment: Performed By: #### ESRWS ### # [facility] [address] [place] [address] c4 complement on 12-12-13 C4 COMPLEMENT 28 10 - 50 mg/dL Normal 12-07-2018 [facility] ([address]) Comment: Performed By: #### ESRWS ### # [facility] [address] [place] [address] c3 complement on 12-12-13 C3 COMPLEMENT 147 87 - 200 mg/dL Normal 12-07-2018 [facility] ([address]) Comment: Performed By: #### ESRWS ### # [facility] [address] [place] [address] c-reactive protein on 2018-12-07 CRP [Mass/Vol] 0.14 mg/dL Normal 12-07-2018 [facility] (66592) Comment: Result Comment: REF VALUE < 1.00 Performed By: #### ESRWS ### # [facility] [address] [place] [address] ast on 2018-12-07 AST [Catalytic activity/Vol] 18 9 - 39 U/L Normal 0 12-07-2018 [facility] (00 000) Comment: Performed By: #### ESRWS ### # [facility] [address] [place] [address] anti-dna [ds] on 12-12-13 ANTI-DNA [DS] 1.0 IU/mL Normal 12-07-2018 [facility] (13035) Comment: Result Comment: REF VALUES NEGATIVE: <= 4 IU/ML EQUIVOCAL: 5- 9 IU/ML POSITIVE: >=10 IU/ML Performed By: #### ALT #### [facility] [address] [place] [address] alt on 2018-12-07 ALT [Catalytic activity/Vol] 28 7 - 45 U/L Normal 0 12-07-2018 [facility] (00 000) Comment: Result Comment: Patients alex ated with Sulfasalazine may generate falsely decreased results fo r ALT. Performed By: #### ESRWS ### # [facility] [address] [place] [address] cnpn on 2018-12-06 CNPN Telephone (CDLE) Normal 12-06-2018 [place] JAZLYN Moreira ([id number]) 1965 F ([id number]) Date Time Provider Department 12/06/18 GRAY PENA) [facility] During your visit today, we recorded the following informati on about you: Gray Pena RN, RN 12/06/2018 1:32 PM Signed Patient phoned for reminder states daughter in labor a nd will not be able to make. Irrigator Head made aware of cancellation Allergies As of Date: 12/06/2018 Noted Allergy Reaction PERCOCET (OXYCODONE-ACETAMINOPHEN)07/17/2011 11 - Vomiting SOLUMEDROL (METHYLPREDNISOLONE SO*01/22/2014 1 - Mental Stat us Change Comments: Made her rageful VICODIN (HYDROCODONE-ACETAMINOPHE*07/17/2011 11 - Vomiting COMBIPATCH (ESTRADIOL-NORETHINDRO*10/26/2016 5 - Intolerance Comments: feels wired, muscles hurt, lips/mouth burn, feels like asthma flaring, nausea, dizziness. METFORMIN 10/28/2017 14 - Other: See Comments Comments: Myalgias. PEPCID (FAMOTIDINE (PF)) 07/07/2016 14 - Other: See Comments Comments: Dry eyes, mouth, rash, itching, anxiety TAPAZOLE (METHIMAZOLE) 10/14/2005 4 - Hives Date Reviewed: 12/02/2018 Reviewed by: Sudha Pink LPN - Fully Assessed Reason for Visit: Reminder Call [[id number]] Prescriptions as of 12/06/2018 Sig: ESCITALOPRAM 5 MG TABLET Take 1 tablet by mouth once d* BLOOD SUGAR DIAGNOSTIC STRIPS TEST four times a day SYNTHROID 137 MCG TABLET take 1 tablet by mouth ON AN * SYNTHROID 125 MCG TABLET take 1 tablet by mouth once d* BLOOD-GLUCOSE METER KIT 1 Each as needed. BLOOD-GLUCOSE METER KIT 1 Each as needed. LANCETS 28 GAUGE Use 4 times daily to test blo* Problem List As Of Date 12/06/2018 Noted Resolved Postablative hypothyroidism [E89.0] INVALID FOR* More... Excessive or frequent menstruation [N92.0] INVALID FOR*10/05 Irregular menstrual cycle [N92.6] INVALID FOR*10/06/2011 Unspecified aftercare [Z51.89] INVALID FOR*10/06/2011 Abdominal pain, chronic, right upper quadrant [* 10/06/2011 Post-menopause [Z78.0] INVALID FOR*03/18/2015 More... URI (upper respiratory infection) [J06.9] INVALID FOR*2014 More... Pneumonia [J18.9] INVALID FOR*07/11/2014 More... More... More... More... More... Adrenal disorder [E27.9] INVALID FOR*07/11/2014 hx of low vitamin D [E55.9] INVALID FOR* Panic disorder with agoraphobia [F40.01] INVALID FOR* Chronic fatigue fibromyalgia syndrome [R53.82, *INVALID FOR* Marital conflict [Z63.0] INVALID FOR*07/11/2014 Blood pressure elevated without history of HTN *INVALID FOR* Impaired glucose tolerance [R73.02] INVALID FOR* More... Ovarian cyst [N83.209] INVALID FOR*03/18/2015 SVT (supraventricular tachycardia) (HCC) [I47.1]INVALID FOR* Delayed emergence from anesthesia [T88.59XA] INVALID FOR* On home oxygen therapy [Z99.81] INVALID FOR*12/13/2015 PTSD (post-traumatic stress disorder) [F43.10] INVALID FOR* Attention deficit hyperactivity disorder (ADHD)*INVALID FOR* Recurrent major depressive disorder, in partial*INVALID FOR* Encounter for screening mammogram for malignant*INVALID FOR* 11/09/2016 menopause age 43 [N95.1] Tobacco use [Z72.0] Postmenopausal HRT (hormone replacement therapy*INVALID FOR* 11/09/2016 Weight gain [R63.5] 10/19/2017 GERD without esophagitis [K21.9] INVALID FOR* More... Simple chronic bronchitis (HCC) [J41.0] INVALID FOR* More... Irritable bowel syndrome with diarrhea [K58.0] INVALID FOR* Systemic lupus erythematosus (HCC) [M32.9] INVALID FOR* Burning sensation of mouth [R20.8] INVALID FOR* Burning sensation of skin [R20.8] INVALID FOR* Sleep difficulties [G47.9] INVALID FOR* Mitral valve prolapse [I34.1] INVALID FOR* More... Screening for malignant neoplasm of the cervix *INVALID FOR* Visit for pelvic exam [Z01.419] INVALID FOR* Encounter for screening mammogram for malignant*INVALID FOR* Estrogen deficiency [E28.39] INVALID FOR* Adrenal adenoma, left [D35.02] INVALID FOR* More... Encounter Status:Closed by GRAY PENA on 12/06/18 stress test exercise on 2018-11-09 STRESS TEST NAME : JAZLYN GARZON Normal 11-09-[address] [facility] EXERCISE PID : [id number] ([id number]) : 1965 Gender : Female Race : ORD : [id number] Procedure Date : Nov 09 2018 13:54:47 Edit Date : Nov 14 2018 09:09:36 Protocol Name : FAITH Time In Exercise Phase : 00:03:00 Max. Systolic BP : 170 mmHg Max Diastolic BP : 86 mmHg Max Heart Rate : 176 BPM Max Predicted Heart Rate : 168 BPM Recovery ECG Response (OLD) : Reason For Termination : Target Heart Rate Achieved Test Reason : Dizzy Spells Location :[facility] Overread By : ROSSY ARZOLA D.O. Edited By : Jolie Razo Referred By : WAYLON GUTIERREZ Acquired by : FRANK BOYCE cnpn on 2018-11-08 CNPN Telephone ([facility]) Normal 11-08-2018 [facility] JAZLYN GAZRON ([id number]) 1965 F ([id number]) Date Time Provider Department 11/08/18 ATIYA SERRATO (RN) [facility] During your visit today, we recorded the following informati on about you: Atiya Serrato RN, RN 11/08/2018 2:16 PM Signed Left message regarding remin chay for stress test tomorrow and given instructions. Allergies As of Date: 11/08/2018 Noted Allergy Reaction PERCOCET (OXYCODONE-ACETAMINOPHEN)07/17/2011 11 - Vomiting SOLUMEDROL (METHYLPREDNISOLONE SO*01/22/2014 1 - Mental Stat us Change Comments: Made her rageful VICODIN (HYDROCODONE-ACETAMINOPHE*07/17/2011 11 - Vomiting COMBIPATCH (ESTRADIOL-NORETHINDRO*10/26/2016 5 - Intolerance Comments: feels wired, muscles hurt, lips/mouth burn, feels like asthma flaring, nausea, dizziness. METFORMIN 10/28/2017 14 - Other: See Comments Comments: Myalgias. PEPCID (FAMOTIDINE (PF)) 07/07/2016 14 - Other: See Comments Comments: Dry eyes, mouth, rash, itching, anxiety TAPAZOLE (METHIMAZOLE) 10/14/2005 4 - Hives Date Reviewed: 10/05/2018 Reviewed by: Meredith Gold - Fully Assessed Reason for Visit: Reminder Call [[id number]] Prescriptions as of 11/08/2018 Sig: BLOOD SUGAR DIAGNOSTIC STRIPS TEST four times a day SYNTHROID 137 MCG TABLET take 1 tablet by mouth ON AN * SYNTHROID 125 MCG TABLET take 1 tablet by mouth once d* BLOOD-GLUCOSE METER KIT 1 Each as needed. BLOOD-GLUCOSE METER KIT 1 Each as needed. LANCETS 28 GAUGE Use 4 times daily to test blo* Problem List As Of Date 11/08/2018 Noted Resolved Postablative hypothyroidism [E89.0] INVALID FOR* More... Excessive or frequent menstruation [N92.0] INVALID FOR*10/05 Irregular menstrual cycle [N92.6] INVALID FOR*10/06/2011 Unspecified aftercare [Z51.89] INVALID FOR*10/06/2011 Abdominal pain, chronic, right upper quadrant [* 10/06/2011 Post-menopause [Z78.0] INVALID FOR*03/18/2015 More... URI (upper respiratory infection) [J06.9] INVALID FOR*2014 More... Pneumonia [J18.9] INVALID FOR*07/11/2014 More... More... More... More... More... Adrenal disorder [E27.9] INVALID FOR*07/11/2014 hx of low vitamin D [E55.9] INVALID FOR* Panic disorder with agoraphobia [F40.01] INVALID FOR* Chronic fatigue fibromyalgia syndrome [R53.82, *INVALID FOR* Marital conflict [Z63.0] INVALID FOR*07/11/2014 Blood pressure elevated without history of HTN *INVALID FOR* Impaired glucose tolerance [R73.02] INVALID FOR* More... Ovarian cyst [N83.209] INVALID FOR*03/18/2015 SVT (supraventricular tachycardia) (HCC) [I47.1]INVALID FOR* Delayed emergence from anesthesia [T88.59XA] INVALID FOR* On home oxygen therapy [Z99.81] INVALID FOR*12/13/2015 PTSD (post-traumatic stress disorder) [F43.10] INVALID FOR* Attention deficit hyperactivity disorder (ADHD)*INVALID FOR* Recurrent major depressive disorder, in partial*INVALID FOR* Encounter for screening mammogram for malignant*INVALID FOR* 11/09/2016 menopause age 43 [N95.1] Tobacco use [Z72.0] Postmenopausal HRT (hormone replacement therapy*INVALID FOR* 11/09/2016 Weight gain [R63.5] 10/19/2017 GERD without esophagitis [K21.9] INVALID FOR* More... Simple chronic bronchitis (HCC) [J41.0] INVALID FOR* More... Irritable bowel syndrome with diarrhea [K58.0] INVALID FOR* Systemic lupus erythematosus (HCC) [M32.9] INVALID FOR* Burning sensation of mouth [R20.8] INVALID FOR* Burning sensation of skin [R20.8] INVALID FOR* Sleep difficulties [G47.9] INVALID FOR* Mitral valve prolapse [I34.1] INVALID FOR* More... Screening for malignant neoplasm of the cervix *INVALID FOR* Visit for pelvic exam [Z01.419] INVALID FOR* Encounter for screening mammogram for malignant*INVALID FOR* Estrogen deficiency [E28.39] INVALID FOR* Adrenal adenoma, left [D35.02] INVALID FOR* More... Encounter Status:Closed by ATIYA SERRATO on 11/08/18 [facility] Normal 11-02-2018 [place] JAZLYN Moreira ([id number]) 1965 F ([id number]) Date Time Provider Department 11/02/18 ATIAY SERRATO (RN) [facility] During your visit today, we recorded the following informati on about you: Atiya Serrato RN, RN 11/02/2018 1:35 PM Signed Called pt regarding reminder and pt stat es I need to reschedule because I am sick. Transferred pt to central scheduling. Allergies As of Date: 11/02/2018 Noted Allergy Reaction PERCOCET (OXYCODONE-ACETAMINOPHEN)07/17/2011 11 - Vomiting SOLUMEDROL (METHYLPREDNISOLONE SO*01/22/2014 1 - Mental Stat us Change Comments: Made her rageful VICODIN (HYDROCODONE-ACETAMINOPHE*07/17/2011 11 - Vomiting COMBIPATCH (ESTRADIOL-NORETHINDRO*10/26/2016 5 - Intolerance Comments: feels wired, muscles hurt, lips/mouth burn, feels like asthma flaring, nausea, dizziness. METFORMIN 10/28/2017 14 - Other: See Comments Comments: Myalgias. PEPCID (FAMOTIDINE (PF)) 07/07/2016 14 - Other: See Comments Comments: Dry eyes, mouth, rash, itching, anxiety TAPAZOLE (METHIMAZOLE) 10/14/2005 4 - Hives Date Reviewed: 10/05/2018 Reviewed by: Meredith Gold - Fully Assessed Reason for Visit: Reminder Call [[id number]] Prescriptions as of 11/02/2018 Sig: BLOOD SUGAR DIAGNOSTIC STRIPS TEST four times a day SYNTHROID 137 MCG TABLET take 1 tablet by mouth ON AN * SYNTHROID 125 MCG TABLET take 1 tablet by mouth once d* BLOOD-GLUCOSE METER KIT 1 Each as needed. BLOOD-GLUCOSE METER KIT 1 Each as needed. LANCETS 28 GAUGE Use 4 times daily to test blo* Problem List As Of Date 11/02/2018 Noted Resolved Postablative hypothyroidism [E89.0] INVALID FOR* More... Excessive or frequent menstruation [N92.0] INVALID FOR*10/05 Irregular menstrual cycle [N92.6] INVALID FOR*10/06/2011 Unspecified aftercare [Z51.89] INVALID FOR*10/06/2011 Abdominal pain, chronic, right upper quadrant [* 10/06/2011 Post-menopause [Z78.0] INVALID FOR*03/18/2015 More... URI (upper respiratory infection) [J06.9] INVALID FOR*2014 More... Pneumonia [J18.9] INVALID FOR*07/11/2014 More... More... More... More... More... Adrenal disorder [E27.9] INVALID FOR*07/11/2014 hx of low vitamin D [E55.9] INVALID FOR* Panic disorder with agoraphobia [F40.01] INVALID FOR* Chronic fatigue fibromyalgia syndrome [R53.82, *INVALID FOR* Marital conflict [Z63.0] INVALID FOR*07/11/2014 Blood pressure elevated without history of HTN *INVALID FOR* Impaired glucose tolerance [R73.02] INVALID FOR* More... Ovarian cyst [N83.209] INVALID FOR*03/18/2015 SVT (supraventricular tachycardia) (HCC) [I47.1]INVALID FOR* Delayed emergence from anesthesia [T88.59XA] INVALID FOR* On home oxygen therapy [Z99.81] INVALID FOR*12/13/2015 PTSD (post-traumatic stress disorder) [F43.10] INVALID FOR* Attention deficit hyperactivity disorder (ADHD)*INVALID FOR* Recurrent major depressive disorder, in partial*INVALID FOR* Encounter for screening mammogram for malignant*INVALID FOR* 11/09/2016 menopause age 43 [N95.1] Tobacco use [Z72.0] Postmenopausal HRT (hormone replacement therapy*INVALID FOR* 11/09/2016 Weight gain [R63.5] 10/19/2017 GERD without esophagitis [K21.9] INVALID FOR* More... Simple chronic bronchitis (HCC) [J41.0] INVALID FOR* More... Irritable bowel syndrome with diarrhea [K58.0] INVALID FOR* Systemic lupus erythematosus (HCC) [M32.9] INVALID FOR* Burning sensation of mouth [R20.8] INVALID FOR* Burning sensation of skin [R20.8] INVALID FOR* Sleep difficulties [G47.9] INVALID FOR* Mitral valve prolapse [I34.1] INVALID FOR* More... Screening for malignant neoplasm of the cervix *INVALID FOR* Visit for pelvic exam [Z01.419] INVALID FOR* Encounter for screening mammogram for malignant*INVALID FOR* Estrogen deficiency [E28.39] INVALID FOR* Adrenal adenoma, left [D35.02] INVALID FOR* More... Encounter Status:Closed by JOSH ATIYA on 11/02/18 aldosterone on 2018 ALDOSTERONE 3.5 0.0-30.0 ng/dL Normal 08-10-2018 [facility] ([id number]) Comment: Result Comment: This test wa s developed and its performance characteristics determined by [facility]. It deleon s not been cleared or approved by the Food and Drug Adminis tration. Performed By: #### ESRWS ### # [facility] [address] [place] [address] acth on 2018-08-05 ACTH 9 0 - 46 pg/mL Normal 08-05-2018 [facility] ([id number]) Comment: Performed By: #### ESRWS ### # [facility] [address] [place] [address] urea nitrogen on 12-08-10 Urea nitrogen [Mass/Vol] 10 6 - 23 mg/dL Normal 08-04 [facility] (00 000) Comment: Performed By: #### UREA #### [facility] [address] [place] [address] sedimentation rate, erythrocyte on 2018-08-04 SEDIMENTATION RATE, 23 0 - 30 mm/h Normal 08-04-2018 [facility] ( [id number]) Comment: Performed By: #### ESRWS ### # [facility] [address] [place] [address] creatinine on 08-04 Creatinine [Mass/Vol] >60 >60 Normal 08-05-19 [facility] ([id number]) Comment: Performed By: #### CREAT ### # [facility] [address] [place] [address] Result Comment: CALCULATIONS OF ESTIMATED GFR ARE PERFORMED USING THE MDRD STUDY EQUATIO N FOR THE IDMS-TRACEABLE CREATININE ME THODS. CLIN CHEM 2007;53:766-72 Creatinine [Mass/Vol] 0.75 0.50 - 1.05 mg/dL Normal 2018 [facility] (00 000) Comment: Performed By: #### CREAT ### # [facility] [address] [place] [address] cortisol,unspecified on 2018-08-04 CORTISOL,UNSPECIFIED 17.1 2.5 - 20.0 ug/dL Normal 08-05-19 19 [facility] (00 000) Comment: Performed By: #### CORUN ### # [facility] [address] [place] [address] cbc and differential on 2018-08-04 % AUTOMATED IMMATURE GRAN 0.6 0.0 - 0.9 % Normal 07-25 [facility] (00 000) Comment: Result Comment: Percent diff erential counts (%) should be interpreted in the context of the absolute cell counts (cells/L). Performed By: #### CBCDF ### # [facility] [address] [place] [address] Basophils (Bld) 0.09 0.00 - 0.10 x10E9/L Normal 08-04-2018 [facility] [#/Vol] [place] (00 000) Comment: Performed By: #### CBCDF ### # [facility] [address] [place] [address] Basophils/100 WBC (Bld) 0.8 0.0 - 2.0 % Normal 2018 [facility] (05935) Comment: Performed By: #### CBCDF ### # [facility] [address] [place] [address] Eosinophils (Bld) 0.27 0.00 - 0.70 x10E9/L Normal 08-04-2018 [facility] [#/Vol] [place] (00 000) Comment: Performed By: #### CBCDF ### # [facility] [address] [place] [address] Eosinophils/100 WBC (Bld) 2.3 0.0 - 6.0 % Normal 07-25 [facility] (00 000) Comment: Performed By: #### CBCDF ### # [facility] [address] [place] [address] Erythrocyte distribution 12.7 11.5 - 14.5 % Normal [facility] (RBC) [Ratio] [facility] (49123) Comment: Performed By: #### CBCDF ### # [facility] [address] [place] [address] Hematocrit (Bld) [Volume 48.5 36.0 - 46.0 % High [facility]] Center (00 000) Comment: Performed By: #### CBCDF ### # [facility] [address] [place] [address] Hemoglobin (Bld) 15.6 12.0 - 16.0 g/dL Normal 08-04-2018 [facility] [Mass/Vol] [place] (0 0000) Comment: Performed By: #### CBCDF ### # [facility] [address] [place] [address] Lymphocytes (Bld) 4.04 1.20 - 4.80 x10E9/L Normal 08-04-2018 [facility] [#/Vol] [place] (00 000) Comment: Performed By: #### CBCDF ### # [facility] [address] [place] [address] Lymphocytes/100 WBC (Bld) 34.9 13.0 - 44.0 % Normal [facility] (00 000) Comment: Performed By: #### CBCDF ### # [facility] [address] [place] [address] MCHC (RBC) [Mass/Vol] 32.2 32.0 - 36.0 g/dL Normal 2018 [facility] (00 000) Comment: Performed By: #### CBCDF ### # [facility] [address] [place] [address] MCV (RBC) [Entitic vol] 100 80 - 100 fL Normal 2018 [facility] (54404) Comment: Performed By: #### CBCDF ### # [facility] [address] [place] [address] Monocytes (Bld) 0.99 0.10 - 1.00 x10E9/L Normal 08-04-2018 [facility] [#/Vol] [facility] (00 000) Comment: Performed By: #### CBCDF ### # [facility] [address] [place] [address] Monocytes/100 WBC (Bld) 8.6 2.0 - 10.0 % Normal 08-04 [facility] (00 000) Comment: Performed By: #### CBCDF ### # [facility] [address] [place] [address] Neutrophils (Bld) 6.11 1.20 - 7.70 x10E9/L Normal 08-04-2018 [facility] [#/Vol] [facility] (00 000) Comment: Performed By: #### CBCDF ### # [facility] [address] [place] [address] Neutrophils/100 WBC (Bld) 52.8 40.0 - 80.0 % Normal [facility] (00 000) Comment: Performed By: #### CBCDF ### # [facility] [address] [place] [address] Nucleated RBC/100 WBC 0.1 0.0-0.0 /100 WBC Normal 08-05-19 19 [facility] (Bld) [Ratio] Center (10564) Comment: Performed By: #### CBCDF ### # [facility] [address] [place] [address] Platelets (Bld) [#/Vol] 301 150 - 450 x10E9/L Normal 2018 [facility] (00 000) Comment: Performed By: #### CBCDF ### # [facility] [address] [place] [address] RBC (Bld) [#/Vol] 4.85 4.00 - 5.20 x10E12/L Normal 08-04-2018 [facility] (00 000) Comment: Performed By: #### CBCDF ### # [facility] [address] [place] [address] WBC (Bld) [#/Vol] 11.6 4.4 - 11.3 x10E9/L High 08-04-2018 [facility] (36385) Comment: Performed By: #### CBCDF ### # [facility] [address] [place] [address] c4 complement on 12-08-10 C4 COMPLEMENT 26 10 - 50 mg/dL Normal 08-04-2018 [facility] (81750) Comment: Performed By: #### C4 #### [facility] [address] [place] [address] c3 complement on 12-08-10 C3 COMPLEMENT 157 87 - 200 mg/dL Normal 08-04-2018 [facility] (56752) Comment: Performed By: #### C3 #### [facility] [address] [place] [address] c-reactive protein on 2018-08-04 CRP [Mass/Vol] 0.18 mg/dL Normal 08-04-2018 [facility] (73687) Comment: Result Comment: REF VALUE < 1.00 Performed By: #### CRP #### [facility] [address] [place] [address] ast on 2018-08-04 AST [Catalytic activity/Vol] 19 9 - 39 U/L Normal 0 08-04-2018 [facility] (00 000) Comment: Performed By: #### AST #### [facility] [address] [place] [address] loretta + adarsh panel on 2018-08-04 LORETTA WITH REFLEX TO ADARSH NEGATIVE NEGATIVE Normal 019 [facility] (00 000) Comment: Performed By: #### ESRWS ### # [facility] [address] [place] [address] ANTI-CENTROMERE <0.2 Normal 08-04-2018 [facility] (98473) Comment: Result Comment: REF VALUES < 1.0 = NEGATIVE >=1.0 = POSITIVE Performed By: #### ESRWS ### # [facility] [address] [place] [address] ANTI-CHROMATIN <0.2 Normal 08-04-2018 [facility] (46762) Comment: Result Comment: REF VALUES < 1.0 = NEGATIVE >=1.0 = POSITIVE Performed By: #### ESRWS ### # [facility] [address] [place] [address] ANTI-DNA [DS] 1.0 IU/mL Normal 08-04-2018 [facility] (04351) Comment: Result Comment: REF VALUES NEGATIVE: <= 4 IU/ML EQUIVOCAL: 5- 9 IU/ML POSITIVE: >=10 IU/ML Performed By: #### ESRWS ### # [facility] [address] [place] [address] ANTI-MANOHAR-1 <0.2 Normal 08-04-2018 [facility] (56602) Comment: Result Comment: REF VALUES < 1.0 = NEGATIVE >=1.0 = POSITIVE Performed By: #### ESRWS ### # [facility] [address] [place] [address] ANTI-RIBOSOMAL P <0.2 Normal 08-04-2018 [facility] (22331) Comment: Result Comment: REF VALUES < 1.0 = NEGATIVE >=1.0 = POSITIVE Performed By: #### ESRWS ### # [facility] [address] [place] [address] ANTI-SOCK IRONER <0.2 Normal 08-04-2018 [facility] (22232) Comment: Result Comment: REF VALUES < 1.0 = NEGATIVE >=1.0 = POSITIVE Performed By: #### ESRWS ### # [facility] [address] [place] [address] ANTI-SCL-70 <0.2 Normal 08-04-2018 [facility] (60677) Comment: Result Comment: REF VALUES < 1.0 = NEGATIVE >=1.0 = POSITIVE Performed By: #### ESRWS ### # [facility] [address] [place] [address] ANTI-SM <0.2 Normal 08-04-2018 [facility] (30828) Comment: Result Comment: REF VALUES < 1.0 = NEGATIVE >=1.0 = POSITIVE Performed By: #### ESRWS ### # [facility] [address] [place] [address] ANTI-SM/SOCK IRONER <0.2 Normal 08-04-2018 [facility] (79883) Comment: Result Comment: REF VALUES < 1.0 = NEGATIVE >=1.0 = POSITIVE Performed By: #### ESRWS ### # [facility] [address] [place] [address] ANTI-SSA <0.2 Normal 08-04-2018 [facility] (81797) Comment: Result Comment: REF VALUES < 1.0 = NEGATIVE >=1.0 = POSITIVE Performed By: #### ESRWS ### # [facility] [address] [place] [address] ANTI-SSB <0.2 Normal 08-04-2018 [facility] (86706) Comment: Result Comment: REF VALUES < 1.0 = NEGATIVE >=1.0 = POSITIVE Performed By: #### ESRWS ### # [facility] [address] [place] [address] alt on 2018-08-04 ALT [Catalytic activity/Vol] 34 7 - 45 U/L Normal 0 08-04-2018 [facility] (00 000) Comment: Result Comment: Patients alex ated with Sulfasalazine may generate falsely decreased results fo r ALT. Performed By: #### ALT #### [facility] [address] [place] [address] follow up (rheumatology) on 2018-08-03 Follow Up Chief Complaint Normal 08-03-2018 [facility] (Rheumatology) (0000 0) SLE follow-up History of Present Illness PCP thinks she has POTS--has dizziness, has symptoms after getting out a hot shower. 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 Wants cortisol, aldosterone and ACTH checked today The patient is being seen for follow-up of systemic lupus er ythematosus. Interval Events: went off pl aquenil for 2 months and had more symptoms.--joint pain. Restarted med . Associated symptoms: myalgia. Medications: the patient is adherent to her medication regimen, but she denies medication side effects. Review of Systems Constitutional: feeling tire d, but no fever, no chills, no recent weight gain and no recent weight loss. ENT: no earache, no hearing loss, no nosebleeds, no nasal discharge, no sore throat and no hoarseness. Cardiovascular: the heart ra te was not slow, the heart rate was not fast, no chest pain, no palpitations, no intermittent leg claudication and no lower extremity edema. Respiratory: no cough, not c oughing up sputum and no wheezing that is consistent with asthma. Gastrointestinal: no abdomin al pain, no constipation, no melena, no nausea, no diarrhea, no vomiting and no blood in stools. Musculoskeletal: arthralgias and myalgias, but no back pain, no joint swelling, no joint stiffness, no limb pain and no limb swelling. Integumentary: a rash, but n o skin lesions, no itching, no skin wound and no dry skin. Neurological: no headache, n o confusion, no numbness, no dizziness, no tingling and no fainting. Active Problems Adult onset hypothyroidism (244.8) (E03.8) GERD (gastroesophageal reflux disease) (530.81) (K21.9) Long-term use of Plaquenil (V58.69) (Z79.899) Low vitamin D level (790.6) (R79.89) Menopause (627.2) (Z78.0) Nocturnal hypoxia (327.24) (G47.34) Situational anxiety (300.09) (F41.8) Sjogren's syndrome with keratoconjunctivitis sicca (710.2) ( M35.01) Systemic lupus erythematosus with other organ involvement (7 10.0) (M32.19) dsDNA + Past Medical History History of BMI over 35 History of Elevated d-dimer (790.92) (R79.89) Resolved Date: 23 Apr 2016 History of Feeling of chest tightness (786.59) (R07.89) Resolved Date: 21 Oct 2016 History of muscle pain (V13.59) (Z87.39) Resolved Date: 27 Jan 2017 History of Polyarthralgia (719.49) (M25.50) Resolved Date: 23 Apr 2016 History of Racing heart beat (785.0) (R00.0) Resolved Date: 23 Apr 2016 History of Rash (782.1) (R21) Resolved Date: 23 Apr 2016 Surgical History History of Oophorectomy Family History Family history of type 2 diabetes mellitus (V18.0) (Z83.3) Family history of hypertension (V17.49) (Z82.49) Family history of myocardial infarction (V17.3) (Z82.49) Family history of S/P CABG (coronary artery bypass graft) Family history of Rheumatoid lung Family history of Rheumatoid lung Family history of systemic lupus erythematosus (V19.4) (Z82. 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 Hydroxychloroquine Sulfate 2 00 MG Oral Tablettake 1 tablet by mouth once daily MDD:5mg/kg/d Levothyroxine Sodium 125 MCG Oral TabletPt takes 1 tablet Wednesday through Wednesday. Levothyroxine Sodium 137 MCG Oral TabletTAKE 1 TABLET ON SUN DAYS RA Natural Magnesium 250 MG Oral Tablet Ventolin HFA 108 (90 Base) MCG/ACT Inhalation Aerosol Soluti on Vitals Vital Signs Recorded: [id number] 07:39AM Ituhphnfbwf08.1 F, Oral Heart Rate85 Tbyhifsl224, LUE, Sitting Kcwuabkqy43, LUE, Sitting Blood Pressure Cuff SizeAdult Glzpmt156 lb BMI Yaxkgzdqnp87.43 BSA Calculated1.93 O2 Nnvkslngfk38 Physical Exam Constitutional General appearance: Alert and in no acute distress. Pulmonary Respiratory assessment: No r espiratory distress, normal respiratory rhythm and effort. Cardiovascular Exam for edema: No peripheral edema. Musculoskeletal Examination of gait: Normal. Inspection of digits and nails: No clubbing or cyanosis of the fingernails. Inspection/palpation of join ts: No joint swelling seen. (no synovitis of examined joints. ). Appearance - no erythema, no ecchymosis, no amputations, no deformity, no asymmetry, no contractures and norm al spinal curvature. Palpati on - no increased warmth, no masses, no click and no crepitus. Skin Skin inspection: Normal skin color and pigmentation, normal skin turgor and no visible rash. Psychiatric Orientation: Oriented to person, place, and time. Mood and affect: Normal. Diagnoses/Problems BMI 35.0-35.9,adult (V85.35) (Z68.35) Systemic lupus erythematosus with other organ involvement (7 10.0) (M32.19) dsDNA + Sjogren's syndrome with keratoconjunctivitis sicca (710.2) ( M35.01) Long-term use of Plaquenil (V58.69) (Z79.899) Current every day smoker (305.1) (F17.200) 1 PPD started in 1988 Orders We want you to try a low-gly cemic diet.; Status:Complete; Done: 03Aug2018 08:00AM Ordered; For:BMI 35.0-35.9,adult; Ordered By:Che Benites; Ophthalmology Follow-Up Outpatient Follow-up Status: Hold Fo r - Scheduling Requested for: 03Aug2018 Ordered Stat;For: Long-term use of Plaquenil; Ordered By: Latasha Benites Performed: Due: 01Nov2018 Tobacco Use Screening; Status:Complete; Done: 03Aug2018 08:0 0AM Perform:In Office; Due:2018;Ordered; For:SocHx: Current every day smoker; Ordered By:Latasha Benites; Adrenocorticotropic Hormone, Plasma; Specimen Source:Blood (BLD); Status:Active; Requested for:03Aug2018; Perform:Lab Services - Lab T o Draw (Blood Test); Due:01Nov2018;Ordered; For:Systemic lupus erythematosus with other organ involvement; Ordered By:Latasha Benites; Aldosterone, Serum; Specimen Source:Blood (BLD); Status:Acti ve; Requested for:03Aug2018; Perform:Lab Services - Lab T o Draw (Blood Test); Due:01Nov2018;Ordered; For:Systemic lupus erythematosus with other organ involvement; Ordered By:Latasha Benites; Cortisol, Unspecified; Specimen Source:Blood (BLD); St atus:Active; Requested for:03Aug2018; Perform:Lab Services - Lab T o Draw (Blood Test); Due:[id number];Ordered; For:Systemic lupus erythematosus with other organ involvement; Ordered By:Latasha Benites; Provider Impressions Patient's primary care provi chay manages all preventive care testing, wellness exams, and vaccinations. Age appropriate recommendations made The patient's labs, radiolog y images and reports, and other tests since previous appointment were obtained, reviewed, and summarized as applicable from the physician portal, electronic medical records s temo and/or outside source s. Pertinent positive and negative findings were considered in medical decision making. All questions were answered and the patient was counseled regarding the diagnosis, prognosis, risk and benefits of the various treatment options and the importance of compliance with therapy. Patient Discussion/Summary Anti-dsDNA + lupus. Pt to av feliberto sultana. Labs were done to assess disease activity and drug toxicity. Continue to think something more than just lupus is causing the bulk of her symptoms see cardiology to work up POTS continue meds Sjogren's can cause severe d ry eye--make sure you see your eye doctor on a regular basis Sjogren's can cause severe d ry mouth which increases dental cavities. Follow up with a dentist regularly and maintain good dental health with brushing and flossing You are on chronic plaquenil. Make sure you see your eye doc tor yearly Plaquenil is now dosed based on your weight. We will make sure that your dose is below the maximum dose of 5mg/kg/day follow up 3 months As always, a healthy lifesty le helps chronic diseases. Eat a balanced diet, exercise at least 30 minutes a day/5 days a week and be up to date on screening health exams Signatures Electronically signed by : Antonieta Benites MD; Aug 03 2018 8:01AM EST (Author) melinda on 2018-06-27 MELINDA Telephone ([id number]) Normal [facility] FLORAJAZLYN ([id number]) 1965 F Medical Date Time Provider Department Center 06/27/18 KIMBERLY BOLTON ([id number]) During your visit today, we recorded the following informati on about you: Kimberly Bolton MD 06/27/2018 10:07 AM Signed Please fax [facility] to [facility] Nayeli Pressley CMA 06/27/2018 2:10 PM Signed Results were faxed to [facility] as requested. Nayeli Pressley CMA Allergies As of Date: 06/27/2018 Noted Allergy Reaction PERCOCET (OXYCODONE-ACETAMINOPHEN)07/17/2011 11 - Vomiting SOLUMEDROL (METHYLPREDNISOLONE SO*01/22/2014 1 - Mental Stat us Change Comments: Made her rageful VICODIN (HYDROCODONE-ACETAMINOPHE*07/17/2011 11 - Vomiting COMBIPATCH (ESTRADIOL-NORETHINDRO*10/26/2016 5 - Intolerance Comments: feels wired, muscles hurt, lips/mouth burn, feels like asthma flaring, nausea, dizziness. METFORMIN 10/28/2017 14 - Other: See Comments Comments: Myalgias. PEPCID (FAMOTIDINE (PF)) 07/07/2016 14 - Other: See Comments Comments: Dry eyes, mouth, rash, itching, anxiety TAPAZOLE (METHIMAZOLE) 10/14/2005 4 - Hives Date Reviewed: 06/20/2018 Reviewed by: Nayeli Pressley - Fully Assessed Reason for Visit: Results [95] Prescriptions as of 06/27/2018 Sig: COMPOUNDED PRESCRIPTION PROGESTERONE CREAM APPLY 5 MG* COMPOUNDED PRESCRIPTION TESTOSTERONE CREAM APPLY 0.25* SYNTHROID 137 MCG TABLET take 1 tablet by mouth ON AN * SERTRALINE 25 MG TABLET Take 0.5 tablets by mouth onc* SYNTHROID 125 MCG TABLET take 1 tablet by mouth once d* PANTOPRAZOLE 40 MG TABLET,DEL* Take 1 tablet by mouth once d * Patient not taking: Reported on 06/09/2018 LEVOTHYROXINE 125 MCG TABLET Take 125 mcg by mouth daily b* BLOOD-GLUCOSE METER KIT 1 Each as needed. BLOOD-GLUCOSE METER KIT 1 Each as needed. BLOOD SUGAR DIAGNOSTIC STRIPS TEST BLOOD SUGARS 4 TIMES [place]* LANCETS 28 GAUGE Use 4 times daily to test blo* Problem List As Of Date 06/27/2018 Noted Resolved Postablative hypothyroidism [E89.0] INVALID FOR* More... Excessive or frequent menstruation [N92.0] INVALID FOR*10/05 Irregular menstrual cycle [N92.6] INVALID FOR*10/06/2011 Unspecified aftercare [Z51.89] INVALID FOR*10/06/2011 Abdominal pain, chronic, right upper quadrant [* 10/06/2011 Post-menopause [Z78.0] INVALID FOR*03/18/2015 More... URI (upper respiratory infection) [J06.9] INVALID FOR*2014 More... Pneumonia [J18.9] INVALID FOR*07/11/2014 More... More... More... More... More... Adrenal disorder [E27.9] INVALID FOR*07/11/2014 hx of low vitamin D [E55.9] INVALID FOR* Panic disorder with agoraphobia [F40.01] INVALID FOR* Chronic fatigue fibromyalgia syndrome [R53.82, *INVALID FOR* Marital conflict [Z63.0] INVALID FOR*07/11/2014 Blood pressure elevated without history of HTN *INVALID FOR* Impaired glucose tolerance [R73.02] INVALID FOR* More... Ovarian cyst [N83.209] INVALID FOR*03/18/2015 SVT (supraventricular tachycardia) (HCC) [I47.1]INVALID FOR* Delayed emergence from anesthesia [T88.59XA] INVALID FOR* On home oxygen therapy [Z99.81] INVALID FOR*12/13/2015 PTSD (post-traumatic stress disorder) [F43.10] INVALID FOR* Attention deficit hyperactivity disorder (ADHD)*INVALID FOR* Recurrent major depressive disorder, in partial*INVALID FOR* Encounter for screening mammogram for malignant*INVALID FOR* 11/09/2016 menopause age 43 [N95.1] Tobacco use [Z72.0] Postmenopausal HRT (hormone replacement therapy*INVALID FOR* 11/09/2016 Weight gain [R63.5] 10/19/2017 GERD without esophagitis [K21.9] INVALID FOR* More... Simple chronic bronchitis (HCC) [J41.0] INVALID FOR* More... Irritable bowel syndrome with diarrhea [K58.0] INVALID FOR* Systemic lupus erythematosus (HCC) [M32.9] INVALID FOR* Burning sensation of mouth [R20.8] INVALID FOR* Burning sensation of skin [R20.8] INVALID FOR* Sleep difficulties [G47.9] INVALID FOR* Mitral valve prolapse [I34.1] INVALID FOR* More... Screening for malignant neoplasm of the cervix *INVALID FOR* Visit for pelvic exam [Z01.419] INVALID FOR* Encounter for screening mammogram for malignant*INVALID FOR* Estrogen deficiency [E28.39] INVALID FOR* Encounter Status:Closed by KIMBERLY BOLTON MD on 06/27/18 progress on 2018-05 Protein mass HNO ID: [id number] Normal 06-20-19 [facility] Author: Kimberly Bolton General Service: (none) [facility] Author Type: Physician Center Type: Progress Notes ([id number]) Filed: 06/20/2018 10:20 AM Note Text: Jazlyn Garzon is an 52 year old woman who presents for menopa usal symptoms. LMP: Patient's last menstrual period was 03/10/2010. Dysmenorrhea:none. Cyclic symptoms include none. Sexually active? YES Contraception: none Sexual dysfunction: none PAST MEDICAL HISTORY Diagnosis Date - Abdominal pain, chronic, right upper quadrant - Asthma As a baby, then I outgrew it. - Cystocele, midline 05/13/2009 - Delayed emergence from anesthesia 09/27/2014 - Depression - Excessive or frequent menstruation Heavy periods - HSDD 10/21/2011 - Hypothyroidism should be on FRANCESCO synthroid. - Irregular menstrual cycle Irregular periods - menopause age 43 2009 in 2012 FSH 47 - Moderate dysplasia of cervix 2001 - Parent-child conflict 03/07/2013 - PMH - PAST MEDICAL HISTORY OF thyroid ablation/hypothyroid - Postmenopausal HRT (hormone replacement therapy) 12/13/2015 in 2014 took femHRT cried 11/2015 offer climara/prometrium - Rectocele 05/13/2009 - SVT (supraventricular tachycardia) ([facility]) - Syncope 05/14/2013 -Reported that she had one episode of syncope at the OSH. -H ad the episode when she stood up. -No urinary incontinence or jerki ng movements. -Never had syncope episode before. -Last Echo stress test fo r her chest pain was in 2011 (normal) Plan: -Repeat the Echo: normal - T he left ventricle is normal in size. Left ventricular systolic funct ion is normal. EF = 63 ? 5% (2D biplane) - The right ventricle is normal in size. Right ventricular systolic function is normal. - There are no sign ificant valvular abnormalities. - Prior echocardiogram performed on 11/10/11 (stress echo). No significant change. - Tele - Tobacco use - Weight gain PAST SURGICAL HISTORY Procedure Laterality Date - CERVIX UTERI CONIZA LP ELCTRO EXCI 2001 LEEP-Cervix - COLONOSCOPY 04/2017 says nl - EGD W/O OR W/BRUSH/WASH 01/22/2014,2009 EGD - LAPAROSCOPIC CHOLEYCYSTECTOMY 05/19/2011 - LIGATE FALLOPIAN TUBE 2003 Tubal ligation - PAST SURGICAL HISTORY OF 1998 tubal - PAST SURGICAL HISTORY OF 2001 thyroid ablation - REMOVAL OF OVARY(S) 09/2014 laparoscopic left, CW, umbilical/upper abdominal adhesions s een benign FAMILY HISTORY Problem Relation Age of Onset - Diabetes Mother Type 2 stroke - Colon Cancer Father age 64 [place] - Diabetes Father Type 2 - Hypertension Father - Coronary Artery Disease Father Hx of [place] - Thyroid Sister hx of parathyroid disease/ hx of fibroids - other (healthy) Brother - other (healthy) Brother - Allergies Daughter - other (healthy) Daughter - other (healthy) Son - other (healthy) Son - other (healthy) Son - other (healthy) Son - Colon Cancer Paternal Aunt x5 - Colon Cancer Paternal Uncle x8 Social History Marital status: Spouse name: Years of education: 14 Number of children: 6 Occupational History Occupation Employer Comment disabled [employer] Social History Main Topics Smoking status: Current Every Day Smoker Packs/day: 0.50 Years: 0.00 Types: Cigarettes Start date: 1985 Smokeless tobacco: Never Used Comment: Has quit intermittently, And I'm working on it now. 1st AM cigarette 10-15 minutes after awake. Most desired is that one, or last of day before bed. Prior 8 month quits, resumed after pregnancies completed. TO Alcohol use: No Drug use: No Sexual activity: Not Currently Partners with: Male control/protection: Tubal Ligation Other Topics Concern Blood Transfusions No Caffeine Concern No Social History Narrative Merged History Encounter MEDICATIONS: SYNTHROID 137 mcg tablet take 1 tablet by mouth ON AN EMPTY STOMACH, EVERY WEDNESDAY AND WEDNESDAY SYNTHROID 125 mcg tablet take 1 tablet by mouth once daily E XCEPT ON WEDNESDAY, TAKE 137 MCG Blood-Glucose Meter (FREESTYLE LITE METER) monitoring kit 1 Each as needed. Blood-Glucose Meter (FREESTYLE LITE METER) monitoring kit 1 Each as needed. blood sugar diagnostic (FREESTYLE LITE STRIPS) test strip TE ST BLOOD SUGARS 4 TIMES DAILY lancets (FREESTYLE LANCETS) 28 gauge misc Use 4 times daily to test blood glucose as directed. sertraline (ZOLOFT) 25 mg tablet Take 0.5 tablets by mouth o nce daily. pantoprazole DR (PROTONIX) 40 mg tablet Take 1 tablet by yani th once daily. levothyroxine (SYNTHROID) 125 mcg tablet Take 125 mcg by yani th daily before breakfast. Taking everyday except , and Wednesday ALLERGIES:Percocet [Oxycodone-Acetaminophen]; Solumedrol [Methylprednisolone Sodium Succ]; Vicodin [Hydrocodone-Aceta minophen]; Combipatch [Estradiol-Norethindrone Acet]; Metformin; Pepcid [Famotidine (Pf)]; Tapazole [Methimazole] Hormone replacement: never Hx of abnormal pap? No Regular self-breast exam? Yes History of abnormal mammogram? No REVIEW OF SYSTEMS: GENERAL:Denies fever, chills, night sweats, or changes in we ight. DERMATOLOGIC: Denies any new skin conditions, rashes or neal ging moles. EYES: Denies recent visual changes. ENT: Denies hearing loss or tinnitus. RESPIRATORY: Denies any cough, dyspnea, or wheezing. CARDIOVASCULAR:Denies any chest pain with exertion or at res t, palpitations, syncope, shortness of breath or edema. BREASTS: Denies any breast lumps, tenderness, dimpling, skin changes, or nipple discharge. GASTROINTESTINAL: Denies any nausea, vomiting, or abdominal pain. , Denies heartburn., Denies any change in bowel habits. GENITOURINARY: Denies urinary frequency, dysuria, hematuria, nocturia, incontinence. and Reports menopausal problem BRAID FOLDER: Denies any abnormal vaginal discharge, irregular bleedi ng, vaginal dryness, dypareunia, or change in libido MUSCULOSKELETAL: Denies any joint swelling, crepitus, or los s of range of motion., Denies back pain., Denies joint pain. NEURO:Denies any headaches, tremors, dizziness, vertigo, mem ory loss, confusion., Denies weakness, numbness or tingling. PSYCHIATRIC: Denies any anxiety or depression. HEMATOLOGIC/LYMPHATIC/IMMUNOLOGIC: Denies anemia, bruising, bleeding abnormalities. ENDOCRINE: Denies any heat or cold intolerance, polyuria, po lyphasia or polydipsia. OBJECTIVE: GENERAL APPEARANCE: cooperative, in no acute distress, alert SKIN:Color normal, Vascularity normal, No evidence of bleedi ng or bruising, No lesions noted, No edema, Temperature normal, Te xture normal, Mobility and turgor normal, Nails normal without clubbing NECK: Supple, no adenopathy; thyroid symmetric, normal size, no bruits BREASTS: breasts symmetric, no dominant or suspicious mass, no skin or nipple changes, no axillary adenopathy HEART:Normal PMI, Regular rate and rhythm, Normal heart soun ds, S1 and S2 and No murmurs. ABDOMEN: soft, non-tender, no masses, no hepatosplenomegaly and no lymphadenopathy EXTREMITIES: No skin discoloration, No edema and Normal puls es bilaterally. PELVIC EXAM :deferred RECTAL EXAM:deferred PATIENT EDUCATION:Women's Health counselling done. ASSESSMENT/PLAN: 1. Symptomatic menopausal or female climacteric states - ICD 9: 627.2, ICD10: N95.1 (primary diagnosis) - She is extremely sensitive to progesterone, so we will sta rt low dose - Bioidentical HRT 2. Postablative hypothyroidism - ICD9: 244.1, ICD10: E89.0 - [facility] - T3 FREE BLD - T4 FREE/FREE THYROX - REVERSE T3 - T3 BLD - T4/THYROXINE BLOOD 3. Estrogen deficiency - ICD9: 256.39, ICD10: E28.39 - DXA-AXIAL SKELETON MD sami Dunlap on 2018-06-20 CNOV Office Visit ([facility]) Normal 2018 [facility] JAZLYN GARZON ([id number]) 1965 F Medical Date Time Provider Department Center 06/20/18 9:30 AM KIMBERLY BOLTON [facility] ([id number]) During your visit today, we recorded the following informati on about you: Blood pressure Weight Height 120/99 90.3 kg 1.549 m Kimberly Bolton MD 06/20/2018 10:20 AM Addendum Jazlyn Garzon is an 52 year old woman who presents for menopa usal symptoms. LMP: Patient's last menstrual period was 03/10/2010. Dysmenorrhea:none. Cyclic symptoms include none. Sexually active? YES Contraception: none Sexual dysfunction: none PAST MEDICAL HISTORY Diagnosis Date - Abdominal pain, chronic, right upper quadrant - Asthma As a baby, then I outgrew it. - Cystocele, midline 05/13/2009 - Delayed emergence from anesthesia 09/27/2014 - Depression - Excessive or frequent menstruation Heavy periods - HSDD 10/21/2011 - Hypothyroidism should be on FRANCESCO synthroid. - Irregular menstrual cycle Irregular periods - menopause age 43 2009 in 2012 FSH 47 - Moderate dysplasia of cervix 2001 - Parent-child conflict 03/07/2013 - PMH - PAST MEDICAL HISTORY OF thyroid ablation/hypothyroid - Postmenopausal HRT (hormone replacement therapy) 12/13/2015 in 2014 took femHRT cried 11/2015 offer climara/prometrium - Rectocele 05/13/2009 - SVT (supraventricular tachycardia) ([facility]) - Syncope 05/14/2013 -Reported that she had one episode of syncope at the OSH. -H ad the episode when she stood up. -No urinary incontinence or jerking movements. -Never had syncope episode before. -Last Echo stress test f or her chest pain was in 2011 (normal) Plan: -Repeat the Echo: normal - The left ventricle is normal in size. Left ventricular systo lic function is normal. EF = 63 ? 5% (2D biplane) - The right ventricle is normal in size. Right joel tricular systolic function is normal. - There are no significant valvular abnormalities. - Prior echocardiogram performed on 11/10/11 (stress echo). No significant change. - Tele - Tobacco use - Weight gain PAST SURGICAL HISTORY Procedure Laterality Date - CERVIX UTERI CONIZA LP ELCTRO EXCI 2001 LEEP-Cervix - COLONOSCOPY 04/2017 says nl - EGD W/O OR W/BRUSH/WASH 01/22/2014,2009 EGD - LAPAROSCOPIC CHOLEYCYSTECTOMY 05/19/2011 - LIGATE FALLOPIAN TUBE 2003 Tubal ligation - PAST SURGICAL HISTORY OF 1998 tubal - PAST SURGICAL HISTORY OF 2001 thyroid ablation - REMOVAL OF OVARY(S) 09/2014 laparoscopic left, CW, umbilical/upper abdominal adhesions s een benign FAMILY HISTORY Problem Relation Age of Onset - Diabetes Mother Type 2 stroke - Colon Cancer Father age 64 [place] - Diabetes Father Type 2 - Hypertension Father - Coronary Artery Disease Father Hx of [place] - Thyroid Sister hx of parathyroid disease/ hx of fibroids - other (healthy) Brother - other (healthy) Brother - Allergies Daughter - other (healthy) Daughter - other (healthy) Son - other (healthy) Son - other (healthy) Son - other (healthy) Son - Colon Cancer Paternal Aunt x5 - Colon Cancer Paternal Uncle x8 Social History Marital status: Spouse name: Years of education: 14 Number of children: 6 Occupational History Occupation Employer Comment disabled [employer] Social History Main Topics Smoking status: Current Every Day Smoker Packs/day: 0.50 Years: 0.00 Types: Cigarettes Start date: 1985 Smokeless tobacco: Never Used Comment: Has quit intermittently, And I'm working on it now. 1st AM cigarette 10-15 minutes after awake. Most desired is that one, or last of day before bed. Prior 8 month quits, resumed after pregnancies completed. TO Alcohol use: No Drug use: No Sexual activity: Not Currently Partners with: Male control/protection: Tubal Ligation Other Topics Concern Blood Transfusions No Caffeine Concern No Social History Narrative Merged History Encounter MEDICATIONS: SYNTHROID 137 mcg tablet take 1 tablet by mouth ON AN EMPTY STOMACH, EVERY WEDNESDAY AND WEDNESDAY SYNTHROID 125 mcg tablet take 1 tablet by mouth once d aily EXCEPT ON WEDNESDAY, TAKE 137 MCG Blood-Glucose Meter (FREESTYLE LITE METER) monitoring kit 1 Each as needed. Blood-Glucose Meter (FREESTYLE LITE METER) monitoring kit 1 Each as needed. blood sugar diagnostic (FREESTYLE LITE STRIPS) t est strip TEST BLOOD SUGARS 4 TIMES DAILY lancets (FREESTYLE LANCETS) 28 gauge misc Use 4 times daily to test blood glucose as directed. sertraline (ZOLOFT) 25 mg tablet Take 0.5 tablets by mouth o nce daily. pantoprazole DR (PROTONIX) 40 mg tablet Take 1 tablet by yani th once daily. levothyroxine (SYNTHROID) 125 mcg tablet Take 125 mcg by m outh daily before breakfast. Taking everyday except , and Wednesday ALLERGIES:Percocet [Oxycodone-Acetaminophen]; Solumedr ol [Methylprednisolone Sodium Succ]; Vicodin [Hydrocodone-Acetaminophen]; Combipatc h [Estradiol-Norethindrone Acet]; Metformin; Pepci d [Famotidine (Pf)]; Tapazole [Methimazole] Hormone replacement: never Hx of abnormal pap? No Regular self-breast exam? Yes History of abnormal mammogram? No REVIEW OF SYSTEMS: GENERAL:Denies fever, chills, night sweats, or changes in we ight. DERMATOLOGIC: Denies any new skin conditions, rashes or neal ging moles. EYES: Denies recent visual changes. ENT: Denies hearing loss or tinnitus. RESPIRATORY: Denies any cough, dyspnea, or wheezing. CARDIOVASCULAR:Denies any chest pain with exertion or at rest, palpitations, syncope, shortness of breath or edema. BREASTS: Denies any breast l umps, tenderness, dimpling, skin changes, or nipple discharge. GASTROINTESTINAL: Denies any nausea, vomiting, or abdominal pain. , Denies heartburn., Denies any change in bowel habits. GENITOURINARY: Denies urinary frequency, dysuria, hematuria, nocturia, incontinence. and Reports menopausal problem BRAID FOLDER: Denies any abnormal vaginal discharge, irregular bleedi ng, vaginal dryness, dypareunia, or change in libido MUSCULOSKELETAL: Denies any joint swelling, crepitus, or los s of range of motion., Denies back pain., Denies joint pain. NEURO:Denies any headaches, tremors, dizziness, vertigo, mem ory loss, confusion., Denies weakness, numbness or tingling. PSYCHIATRIC: Denies any anxiety or depression. HEMATOLOGIC/LYMPHATIC/IMMUNOLOGIC: Denies anemia, bruising, bleeding abnormalities. ENDOCRINE: Denies any heat or cold intolerance, polyuria, po lyphasia or polydipsia. OBJECTIVE: GENERAL APPEARANCE: cooperative, in no acute distress, alert SKIN:Color normal, Vascularity normal, N o evidence of bleeding or bruising, No lesions noted, No edema, Temperature normal, Texture normal, Mobility and turgor normal, Nails normal without clubbing NECK: Supple, no adenopathy; thyroid symmetric, normal size, no bruits BREASTS: breasts symmetric, no dominant or suspi cious mass, no skin or nipple changes, no axillary adenopathy HEART:Normal PMI, Regular rate and rhythm, Redd l heart sounds, S1 and S2 and No murmurs. ABDOMEN: soft, non-tender, no masses, no hepatosplenomegaly and no lymphadenopathy EXTREMITIES: No skin discoloration, No edema and Normal pu lses bilaterally. PELVIC EXAM :deferred RECTAL EXAM:deferred PATIENT EDUCATION:Women's Health counselling done. ASSESSMENT/PLAN: 1. Symptomatic menopausal or female climacteric states - ICD9: 627.2, ICD10: N95.1 (primary diagnosis) - She is extremely sensitive to progesterone, so we will sta rt low dose - Bioidentical HRT 2. Postablative hypothyroidism - ICD9: 244.1, ICD10: E89.0 - [facility] labs to [facility] - T3 FREE BLD - T4 FREE/FREE THYROX - REVERSE T3 - T3 BLD - T4/THYROXINE BLOOD 3. Estrogen deficiency - ICD9: 256.39, ICD10: E28.39 - DXA-AXIAL SKELETON MD Kimberly Dunlap MD 06/20/2018 10:21 AM Signed Addended by: KIMBERLY BOLTON MD on: 06/20/2018 10:21 AM Modules accepted: Orders Referring Provider: SELF [[id number]] Allergies As of Date: 06/20/2018 Noted Allergy Reaction PERCOCET (OXYCODONE-ACETAMINOPHEN)07/17/2011 11 - Vomiting SOLUMEDROL (METHYLPREDNISOLONE SO*01/22/2014 1 - Mental Stat us Change Comments: Made her rageful VICODIN (HYDROCODONE-ACETAMINOPHE*07/17/2011 11 - Vomiting COMBIPATCH (ESTRADIOL-NORETHINDRO*10/26/2016 5 - Intolerance Comments: feels wired, muscles hurt, lips/mouth burn, feels like asthma flaring, nausea, dizziness. METFORMIN 10/28/2017 14 - Other: See Comments Comments: Myalgias. PEPCID (FAMOTIDINE (PF)) 07/07/2016 14 - Other: See Comments Comments: Dry eyes, mouth, rash, itching, anxiety TAPAZOLE (METHIMAZOLE) 10/14/2005 4 - Hives Date Reviewed: 06/20/2018 Reviewed by: Nayeli ([facility]) Wendie - Fully Assessed Reason for Visit: Discuss Hormones [Other] Reason For Visit History Recorded Primary Visit Diagnosis:Symptomatic menopausal or female c limacteric states [N95.1] Other Visit Diagnoses:Postablative hypothyroidism [E89.0] Estrogen deficiency [E28.39] Order(s):T3 FREE BLD [SQFREET3] Order #: [id number] FUTURE T4 FREE/FREE THYROX [SQFT4] Order #: [id number] FUTURE REVERSE T3 [RIN7TAZ] Order #: [id number] FUTURE T3 BLD [SQT3] Order #: [id number] FUTURE T4/THYROXINE BLOOD [SQT4] Order #: [id number] FUTURE COMPOUNDED PRESCRIPTIONPROGESTERONE CREAM APPLY 5 MG AT HS A S DIRECTEDDisp: 150 mgRfl: 3 COMPOUNDED PRESCRIPTIONTESTOSTERONE CREAM APPLY 0.25MG Q AM DIRECTEDDisp: 7.5 mgRfl: 5 DXA-AXIAL SKELETON [[id number]] Order #: [id number] FUTURE Prescriptions as of 06/20/2018 Sig: SYNTHROID 137 MCG TABLET take 1 tablet by mouth ON AN * SYNTHROID 125 MCG TABLET take 1 tablet by mouth once d* BLOOD-GLUCOSE METER KIT 1 Each as needed. BLOOD-GLUCOSE METER KIT 1 Each as needed. BLOOD SUGAR DIAGNOSTIC STRIPS TEST BLOOD SUGARS 4 TIMES [place]* LANCETS 28 GAUGE Use 4 times daily to test blo* COMPOUNDED PRESCRIPTION PROGESTERONE CREAM APPLY 5 MG* COMPOUNDED PRESCRIPTION TESTOSTERONE CREAM APPLY 0.25* SERTRALINE 25 MG TABLET Take 0.5 tablets by mouth onc* PANTOPRAZOLE 40 MG TABLET,DEL* Take 1 tablet by mouth once d * Patient not taking: Reported on 06/09/2018 LEVOTHYROXINE 125 MCG TABLET Take 125 mcg by mouth daily b* Problem List As Of Date 06/20/2018 Noted Resolved Postablative hypothyroidism [E89.0] INVALID FOR* More... Excessive or frequent menstruation [N92.0] INVALID FOR*10/05 Irregular menstrual cycle [N92.6] INVALID FOR*10/06/2011 Unspecified aftercare [Z51.89] INVALID FOR*10/06/2011 Abdominal pain, chronic, right upper quadrant [* 10/06/2011 Post-menopause [Z78.0] INVALID FOR*03/18/2015 More... URI (upper respiratory infection) [J06.9] INVALID FOR*2014 More... Pneumonia [J18.9] INVALID FOR*07/11/2014 More... More... More... More... More... Adrenal disorder [E27.9] INVALID FOR*07/11/2014 hx of low vitamin D [E55.9] INVALID FOR* Panic disorder with agoraphobia [F40.01] INVALID FOR* Chronic fatigue fibromyalgia syndrome [R53.82, *INVALID FOR* Marital conflict [Z63.0] INVALID FOR*07/11/2014 Blood pressure elevated without history of HTN *INVALID FOR* Impaired glucose tolerance [R73.02] INVALID FOR* More... Ovarian cyst [N83.209] INVALID FOR*03/18/2015 SVT (supraventricular tachycardia) (HCC) [I47.1]INVALID FOR* Delayed emergence from anesthesia [T88.59XA] INVALID FOR* On home oxygen therapy [Z99.81] INVALID FOR*12/13/2015 PTSD (post-traumatic stress disorder) [F43.10] INVALID FOR* Attention deficit hyperactivity disorder (ADHD)*INVALID FOR* Recurrent major depressive disorder, in partial*INVALID FOR* Encounter for screening mammogram for malignant*INVALID FOR* 11/09/2016 menopause age 43 [N95.1] Tobacco use [Z72.0] Postmenopausal HRT (hormone replacement therapy*INVALID FOR* 11/09/2016 Weight gain [R63.5] 10/19/2017 GERD without esophagitis [K21.9] INVALID FOR* More... Simple chronic bronchitis (HCC) [J41.0] INVALID FOR* More... Irritable bowel syndrome with diarrhea [K58.0] INVALID FOR* Systemic lupus erythematosus (HCC) [M32.9] INVALID FOR* Burning sensation of mouth [R20.8] INVALID FOR* Burning sensation of skin [R20.8] INVALID FOR* Sleep difficulties [G47.9] INVALID FOR* Mitral valve prolapse [I34.1] INVALID FOR* More... Screening for malignant neoplasm of the cervix *INVALID FOR* Visit for pelvic exam [Z01.419] INVALID FOR* Encounter for screening mammogram for malignant*INVALID FOR* Estrogen deficiency [E28.39] INVALID FOR* Prescriptions ordered this encounter Disp Refills Start End COMPOUNDED PRESCRIPTION 150 * 3 06/20/2018 Sig: PROGESTERONE CREAM APPLY 5 MG AT HS DIRECTED COMPOUNDED PRESCRIPTION 7.5 * 5 06/20/2018 Sig: TESTOSTERONE CREAM APPLY 0.25MG Q AM DIRECTED Level of Service: WELLNESS EXAMS NEW 40-64 YRS [[id number]] Disposition: Return in about 1 year (around 06/20/2019). Follow-up and Disposition History Recorded Encounter Status:Closed by KIMBERLY BOLTON MD on 06/20/18 follow up (rheumatology) on 2018-01-19 Follow Up Chief Complaint Normal 01-19-2018 [place] (Rheumatology) Lupus follow up ([id number]) History of Present Illness The patient is being seen for follow-up of systemic lupus er holgerhematosus. Interval Events: hasn't been seen since May. Has low vitamin D so decided to go to a tanning bed last week and now with more lupus symptoms--rashes and achiness. Pt now has dry eye and dry mouth th at is intermittent. Also rep orts that she is still trying to find hormones that help her and don't increase her symptoms . Associated symptoms: myalgia. Medications: the patient is adherent to her medication regimen, but she denies medication side effects. Review of Systems Constitutional: feeling tire d, but no fever, no chills, no recent weight gain and no recent weight loss. ENT: no earache, no hearing loss, no nosebleeds, no nasal discharge, no sore throat and no hoarseness. Cardiovascular: the heart ra te was not slow, the heart rate was not fast, no chest pain, no palpitations, no intermittent leg claudication and no lower extremity edema. Respiratory: no cough, not c oughing up sputum and no wheezing that is consistent with asthma. Gastrointestinal: no abdomin al pain, no constipation, no melena, no nausea, no diarrhea, no vomiting and no blood in stools. Musculoskeletal: arthralgias and myalgias, but no back pain, no joint swelling, no joint stiffness, no limb pain and no limb swelling. Integumentary: a rash, but n o skin lesions, no itching, no skin wound and no dry skin. Neurological: no headache, n o confusion, no numbness, no dizziness, no tingling and no fainting. Active Problems Anxiety (300.00) (F41.9) BMI over 35 GERD (gastroesophageal reflux disease) (530.81) (K21.9) Hypothyroidism (244.9) (E03.9) Long-term use of Plaquenil (V58.69) (Z79.899) Menopause (627.2) (Z78.0) Nocturnal hypoxia (327.24) (G47.34) Systemic lupus erythematosus (710.0) (M32.9) dsDNA + Vitamin D deficiency (268.9) (E55.9) Past Medical History History of Elevated d-dimer (790.92) (R79.89) History of Feeling of chest tightness (786.59) (R07.89) History of muscle pain (V13.59) (Z87.39) History of Polyarthralgia (719.49) (M25.50) History of Racing heart beat (785.0) (R00.0) History of Rash (782.1) (R21) Surgical History History of Oophorectomy Family History Family history of type 2 diabetes mellitus (V18.0) (Z83.3) Family history of hypertension (V17.49) (Z82.49) Family history of myocardial infarction (V17.3) (Z82.49) Family history of S/P CABG (coronary artery bypass graft) Family history of Rheumatoid lung Family history of Rheumatoid lung Family history of systemic lupus erythematosus (V19.4) (Z82. 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 Does not exercise (V69.0) (Z72.3) Lack of adequate sleep (V69.4) (Z72.820) Lives in [place] No alcohol use No caffeine use No drug use Tobacco use current (305.1) (Z72.0) Allergies Tapazole Hives;; Updated By: Gray Padilla; 12/17/2015 12:28:34 P M Current Meds Levothyroxine Sodium 125 MCG Oral Tablet; Pt takes 1 tablet Wednesday through Wednesday; Therapy: 22Oct2016 to Recorded Dispense: 0 Days ; #: Suffic ient Tablet; Refill: 0;For: Hypothyroidism; FRANCESCO = N; Record; Last Updated By: Jazlyn Saldaña; 10/22/2016 8:34:23 AM Levothyroxine Sodium 137 MCG Oral Tablet; TAKE 1 TABLET ON UND; Therapy: 28Apr2016 to Requested for: 22Oct2016 Recorded Rx By: Latasha Benites; Dis pense: 0 Days ; #:30 Tablet; Refill: 5;For: Hypothyroidism; FRANCESCO = N; Record; Last Updated By: Jazlyn Saldaña; 10/22/2016 8:34:22 AM Gabapentin 300 MG Oral Capsule; TAKE 1 CAPSULE Bedtime; Therapy: 17Dec2015 to (Evaluate:16Mar2016) Requested for: ; Last Rx:[id number]; Status: ACTIVE - Renewal Denied, Transmit to [facility] - Awaiting Verification Ordered Rx By: Gray Padilla; D ispense: 30 Days ; #:30 Capsule; Refill: 2;For: PMH: History of muscle pain, PMH: Polyarthralgia; FRANCESCO = N; Transmitted To: [address] Hydroxychloroquine Sulfate 2 00 MG Oral Tablet; take 1 tablet by mouth once daily; Therapy: 22Jan2016 to (Evaluate:02Feb2018) Requested for: ; Last Rx:[id number] Ordered Rx By: Latasha Benites; Dis pense: 30 Days ; #:30 TAB; Refill: 5;For: Systemic lupus erythematosus; FRANCESCO = N; Verified Transmission to [address]; Last Updated By: Shoshana Mann; 08/06/2017 10:00:13 AM ALPRAZolam 1 MG Oral Tablet; TAKE 1 TABLET 3 TIMES DAILY NEEDED; Therapy: [id number] to Recorded Dispense: 0 Days ; #: Suffic ient Tablet; Refill: 0; FRANCESCO = N; Record; Last Updated By: Pati Onofre; 11/13/2015 8:34:25 AM Dexamethasone 1 MG Oral Tablet; Therapy: [id number] to Recorded Dispense: 1 Days ; #:1 TABS; Refill: 0; FRANCESCO = N; Record; Last Updated By: Latasha Benites; 01/16/2018 4:18:27 PM Duavee 0.45-20 MG Oral Tablet; Therapy: 28Jan2017 to Recorded Dispense: 30 Days ; #:30 TAB S; Refill: 0; FRANCESCO = N; Record; Last Updated By: Latasha Benites; 01/16/2018 4:18:27 PM Estradiol 0.025 MG/24HR Transdermal Patch Weekly; Therapy: [id number] to Recorded Dispense: 28 Days ; #:4 PTWK ; Refill: 0; FRANCESCO = N; Record; Last Updated By: Latasha Benites; 01/16/2018 4:18:27 PM Ferrous Gluconate 324 (38 Fe) MG Oral Tablet; Therapy: 06Aug2017 to Recorded Dispense: 30 Days ; #:60 TAB S; Refill: 0; FRANCESCO = N; Record; Last Updated By: Latasha Benites; 01/16/2018 4:18:27 PM FLUoxetine HCl - 10 MG Oral Capsule; Therapy: 28Oct2017 to Recorded Dispense: 30 Days ; #:30 CAP S; Refill: 0; FRANCESCO = N; Record; Last Updated By: Latasha Benites; 01/16/2018 4:18:27 PM FreeStyle Lancets Miscellaneous; Therapy: 01Nov2017 to Recorded Dispense: 25 Days ; #:100 [place]; Refill: 0; FRANCESCO = N; Record; Last Updated By: Latasha Benites; 01/16/2018 4:18:27 PM FreeStyle Lancets Miscellaneous; Therapy: 01Nov2017 to Recorded Dispense: 25 Days ; #:100 [place]; Refill: 0; FRANCESCO = N; Record; Last Updated By: Latasha Benites; 01/16/2018 4:18:27 PM FreeStyle Lite Test In Vitro Strip; Therapy: 40Aro0880 to Recorded Dispense: 25 Days ; #:100 ST RP; Refill: 0; FRANCESCO = N; Record; Last Updated By: Latasha Benites; 01/16/2018 4:18:27 PM Gabapentin 100 MG Oral Capsule; Therapy: 19Oct2017 to Recorded Dispense: 30 Days ; #:60 CAP S; Refill: 0; FRANCESCO = N; Record; Last Updated By: Latasha Benites; 01/16/2018 4:18:27 PM Hydrocortisone 20 MG Oral Tablet; Therapy: 22Gvk2375 to Recorded Dispense: 30 Days ; #:480 TA BS; Refill: 0; FRANCESCO = N; Record; Last Updated By: Latasha Benites; 01/16/2018 4:18:27 PM MetFORMIN HCl ER 500 MG Oral Tablet Extended Release 24 Hour ; Therapy: 09Oct2017 to Recorded Dispense: 30 Days ; #:60 TB2 4; Refill: 0; FRANCESCO = N; Record; Last Updated By: Latasha Benites; 01/16/2018 4:18:27 PM Progesterone Micronized Powder; Therapy: 02Sep2017 to Recorded Dispense: 30 Days ; #:15 POW D; Refill: 0; FRANCESCO = N; Record; Last Updated By: Latasha Benites; 01/16/2018 4:18:27 PM RA Natural Magnesium 250 MG Oral Tablet; Therapy: 82Dye0893 to Recorded Dispense: 30 Days ; #:30 TAB S; Refill: 0; FRANCESCO = N; Record; Last Updated By: Latasha Benites; 01/16/2018 4:18:27 PM RA Vitamin D-3 5000 UNIT Oral Capsule; Therapy: 27Aug2017 to Recorded Dispense: 30 Days ; #:30 CAP S; Refill: 0; FRANCESCO = N; Record; Last Updated By: Latasha Benites; 01/16/2018 4:18:27 PM Testosterone Powder; Therapy: 19Jul2017 to Recorded Dispense: 30 Days ; #:60 POW D; Refill: 0; FRANCESCO = N; Record; Last Updated By: Latasha Benites; 01/16/2018 4:18:27 PM Ventolin HFA 108 (90 Base) MCG/ACT Inhalation Aerosol Soluti on; Therapy: 35Jpl9279 to Recorded Dispense: 17 Days ; #:18 AER S; Refill: 0; FRANCESCO = N; Record; Last Updated By: Latasha Benites; 07/22/2016 12:39:12 PM Vitals Vital Signs Recorded: 19Jan2018 07:47AM Vqefkfkxjrr69.5 F, Oral Heart Rate91 Wrgfwgcz434, LUE, Sitting Vyflapfvz18, LUE, Sitting Blood Pressure Cuff SizeAdult Avbymw191 lb BMI Fubtblaqno83.83 BSA Calculated1.9 O2 Mswqsyxwhg62 Physical Exam Constitutional General appearance: Alert and in no acute distress. Pulmonary Respiratory assessment: No r espiratory distress, normal respiratory rhythm and effort. Cardiovascular Exam for edema: No peripheral edema. Musculoskeletal Examination of gait: Normal. Inspection of digits and nails: No clubbing or cyanosis of the fingernails. Inspection/palpation of join ts: No joint swelling seen. (no synovitis of examined joints. ). Appearance - no erythema, no ecchymosis, no amputations, no deformity, no asymmetry, no contractures and norm al spinal curvature. Palpati on - no increased warmth, no masses, no click and no crepitus. Skin Skin and subcutaneous tissue: Abnormal. tanned. Psychiatric Orientation: Oriented to person, place, and time. Mood and affect: Normal. Diagnoses/Problems Systemic lupus erythematosus (710.0) (M32.9) dsDNA + Long-term use of Plaquenil (V58.69) (Z79.899) Vitamin D deficiency (268.9) (E55.9) Sjogren's syndrome (710.2) (M35.00) Orders ALT - Alanine Aminotransfera se, Serum; Source:Blood (BLD); Status:Active; Requested for:21May2018; Perform:Lab Services - Lab T o Draw (Blood Test); Due:19Aug2018;Ordered; For:Systemic lupus erythematosus; Ordered By:Latasha Benites; Anti Nuclear Antibody Panel (with automatic ADARSH Panel); So urce:Blood (BLD); Status:Active; Requested for:21May2018; Perform:Lab Services - Lab T o Draw (Blood Test); Due:19Aug2018;Ordered; For:Systemic lupus erythematosus; Ordered By:Latasha Benites; Anti-dsDNA (Double Stranded) Antibodies; Source:Blood (BLD ); Status:Active; Requested for:21May2018; Perform:Lab Services - Lab T o Draw (Blood Test); Due:19Aug2018;Ordered; For:Systemic lupus erythematosus; Ordered By:Latasha Benites; AST; Source:Blood (D); Status:Active; Requested for:; Perform:Lab Services - Lab T o Draw (Blood Test); Due:19Aug2018;Ordered; For:Systemic lupus erythematosus; Ordered By:Latasha Benites; Blood Urea Nitrogen, Serum; Source:Blood (D); Status:Activ e; Requested for:21May2018; Perform:Lab Services - Lab T o Draw (Blood Test); Due:19Aug2018;Ordered; For:Systemic lupus erythematosus; Ordered By:Latasha Benites; C Reactive Protein, Serum; Source:Blood (D); Status:Active ; Requested for:21May2018; Perform:Lab Services - Lab T o Draw (Blood Test); Due:19Aug2018;Ordered; For:Systemic lupus erythematosus; Ordered By:Latasha Benites; C3 Complement, Serum; Source :Blood (D); Status:Active; Requested for:21May2018; Perform:Lab Services - Lab T o Draw (Blood Test); Due:19Aug2018;Ordered; For:Systemic lupus erythematosus; Ordered By:Latasha Benites; C4 Complement, Serum; Source :Blood (BLD); Status:Active; Requested for:21May2018; Perform:Lab Services - Lab T o Draw (Blood Test); Due:19Aug2018;Ordered; For:Systemic lupus erythematosus; Ordered By:Latasha Benites; Complete Blood Count + Diffe rential; Source:Blood (BLD); Status:Active; Requested for:21May2018; Perform:Lab Services - Lab T o Draw (Blood Test); Due:19Aug2018;Ordered; For:Systemic lupus erythematosus; Ordered By:Latasha Benites; Creatinine, Serum; Source:Blood (BLD); S tatus:Active; Requested for:21May2018; Perform:Lab Services - Lab T o Draw (Blood Test); Due:19Aug2018;Ordered; For:Systemic lupus erythematosus; Ordered By:Latasha Benites; Sedimentation Rate, Erythrocyte; Source:Blood (B LD); Status:Active; Requested for:21May2018; Perform:Lab Services - Lab T o Draw (Blood Test); Due:19Aug2018;Ordered; For:Systemic lupus erythematosus; Ordered By:Latasha Benites; Provider Impressions Anti-dsDNA + lupus. Pt to av feliberto sultana. Labs were done to assess disease activity and drug toxicity. continue meds The patient's labs, radiolog y images and reports, and other tests since previous appointment were obtained, reviewed, and summarized as applicable from the physician portal, electronic medical records s ystems and/or outside source s. Pertinent positive and negative findings were considered in medical decision making. All questions were answered and the patient was counseled regarding the diagnosis, prognosis, risk and benefits of the various treatment options and the importance of compliance with therapy. Patient Discussion/Summary follow up 3 months You are on chronic plaquenil. Make sure you see your eye doc tor yearly As always, a healthy lifesty le helps chronic diseases. Eat a balanced diet, exercise at least 30 minutes a day/5 days a week and be up to date on screening health exams. End of Encounter Meds ALPRAZolam 1 MG Oral Tablet; TAKE 1 TABLET 3 TIMES DAILY NEEDED; Therapy: 01Pya1634 to Recorded Dexamethasone 1 MG Oral Tablet; Therapy: 62Lcm0973 to Recorded Duavee 0.45-20 MG Oral Tablet; Therapy: 66Rco9562 to Recorded Estradiol 0.025 MG/24HR Transdermal Patch Weekly; Therapy: 73Pxi4158 to Recorded Ferrous Gluconate 324 (38 Fe) MG Oral Tablet; Therapy: 89Gvy9744 to Recorded FLUoxetine HCl - 10 MG Oral Capsule; Therapy: 85Zeq0598 to Recorded FreeStyle Lancets Miscellaneous; Therapy: 87Fpm1891 to Recorded FreeStyle Lancets Miscellaneous; Therapy: 01Nov2017 to Recorded FreeStyle Lite Test In Vitro Strip; Therapy: 01Nov2017 to Recorded Gabapentin 100 MG Oral Capsule; Therapy: 19Oct2017 to Recorded Gabapentin 300 MG Oral Capsule; TAKE 1 CAPSULE Bedtime; Therapy: 67Xxp0992 to (Evaluate:16Mar2016) Requested for: ; Last Rx:[id number]; Status: ACTIVE - Renewal Denied, Transmit to P harmacy - Awaiting Verification Ordered Hydrocortisone 20 MG Oral Tablet; Therapy: 02Dec2017 to Recorded Hydroxychloroquine Sulfate 2 00 MG Oral Tablet; take 1 tablet by mouth once daily; Therapy: 22Jan2016 to (Evaluate:02Feb2018) Requested for: ; Last Rx:06Aug2017 Ordered Levothyroxine Sodium 125 MCG Oral Tablet; Pt takes 1 tablet Wednesday through Wednesday; Therapy: 22Oct2016 to Recorded Levothyroxine Sodium 137 MCG Oral Tablet (Synthroid); TAKE 1 TABLET ON SUNDAYS; Therapy: 28Apr2016 to Requested for: 22Oct2016 Recorded MetFORMIN HCl ER 500 MG Oral Tablet Extended Release 24 Hour ; Therapy: 09Oct2017 to Recorded Progesterone Micronized Powder; Therapy: 02Sep2017 to Recorded RA Natural Magnesium 250 MG Oral Tablet; Therapy: 27May2017 to Recorded RA Vitamin D-3 5000 UNIT Oral Capsule; Therapy: 27Aug2017 to Recorded Testosterone Powder; Therapy: 19Jul2017 to Recorded Ventolin HFA 108 (90 Base) MCG/ACT Inhalation Aerosol Soluti on; Therapy: 03Jun2016 to Recorded Signatures Electronically si gned by : Latasha Benites MD; Jan 19 2018 8:47AM EST (Author) mri brain w/o contrast on 2017-10-12 MRI Brain w/o Patient Name: JAZLYN GARZON Normal 10-12-2017 [facility] Home Inventory S[pecialists Contrast FIN: Rupinder yserik [id number] MRI Exam Date/Time 10/12/2017 08:18:01 EDT Exam MRI Brain w/o Contrast Ordering Physician MD STU, TAMMY ASTUDILLO Accession Number [id number] CPT4 Codes 58301 () Reason For Exam dizziness Report MRI BRAIN WITHOUT CONTRAST CLINICAL: Dizziness Routine noncontrast MR imaging of the brain was performed. COMPARISON: None provided FINDINGS: The diffusion-weighted imaging is without evidence of acute ischemic injury. There is no hydrocephalus. The basilar cisterns are patent. No midline shift or mass effect is identified. No abnormal brain parenchymal edema. The brain parenchymal signal intensity appears overall within limits. The gradient echo imaging, no abnormal artifact to suggest underlying blood products is identified. Orbits appear symmetric. Minimal scattered mucosal thickening within the paranasal sinuses. No abnormal paranasal sinus air fluid levels are present. The internal auditory canals are normal in caliber. Intracranial internal carotid and vertebrobasilar T2 signal flow voids appear grossly patent. No abnormal mass within the sella. There is minimal cerebellar tonsillar ectopia the level the foramen magnum. Mild rightward deviation of the nasal septum. IMPRESSION: Grossly unremarkable noncontrast MR study of the brain. No evidence of acute ischemic injury, abnormal brain parenchymal edema or brain parenchymal signal abnormality. Minimal scattered paranasal sinus mucosal thickening. Report Dictated on Final Dictated: 10/12/2017 8:24 am Dictating Physician: NABILA WEBBER Signed Date and Time: 10/12/2017 8:29 am Signed by: NABILA WEBBER Transcribed Date and Time: 10/12/2017 8:24 office visit: post op ph probe on 2017-02-15 Dietary management yes Invalid 02-15-2017 [facility] Surgical education, Interpretation Code 7 [facility] guidance, and (90676 ) counseling (procedure) Documentation of Done Invalid 02-15-2017 [facility] Surgical current medications Interpretation Code 02-15-2017 [facility] (procedure) (55233) Fall risk No Invalid 02-15-2017 [facility] Ramila gical assessment Interpretation Code 7 [facility] (45383) Protein mass conc Done Invalid 02-15-2017 [facility] Surgical Interpretation Code 02-15-2017 [facility] (35360) Protein mass conc yes Invalid 02-15-2017 [facility] Surgical Interpretation Code 02-15-2017 [facility] (39762) Smoking cessation yes Invalid 02-15-2017 [facility] Surgical education Interpretation Code 02-15-2017 [facility] (procedure) (97999) Tobacco smoking Never Invalid 02-15-2017 - [facility] Surgical status NHIS Interpretation Code 02-16-20 17 [facility] (60126) Tobacco smoking Current every Invalid 02-15-2017 - [facility] Surgical status WYIS day smoker Interpretation Code 017 Associates (81871) Tobacco use CPHS Current every Invalid 7 - [facility] Surgical day smoker Interpretation Code 7 Associates (30427) office visit: discuss endo on 2017-01-13 Dietary management yes Invalid 01-13-2017 - [facility] Surgical education, Interpretation Code 7 [facility] guidance, and (83894 ) counseling (procedure) Documentation of Done Invalid 01-13-2017 - [facility] Surgical current medications Interpretation Code 01-13-2017 [facility] (procedure) (07380) Fall risk No Invalid 01-13-2017 - [facility] Ramila gical assessment Interpretation Code 7 [facility] (57846) Protein mass conc Done Invalid 01-13-2017 - [place] Interpretation Code 01-13-2017 [facility] (34373) Protein mass conc yes Invalid 01-13-2017 - [place] Interpretation Code 01-13-2017 [facility] (17989) Smoking cessation yes Invalid 01-13-2017 - [facility] Surgical education Interpretation Code 01-13-2017 [facility] (procedure) (41392) Tobacco smoking Current Invalid 01-13-2017 - [place] status WYIS every day Interpretation Code 01-14-20 17 [facility] smoker (72465) Tobacco smoking Never Invalid 01-13-2017 - [facility] status [facility] Interpretation Code 01-14-20 17 [facility] (90501) Tobacco use CPHS Current Invalid 01-13-2017 - [facility] Surgical every day Interpretation Code 01-13-2017 [facility] smoker (46302) replaced document: midmark ecg observati ons on 2017-01-08 EKG QRS axis 80 deg Invalid 01-08-2017 - [place] Interpretation 01-08-2017 [facility] Code (15695) electrocardiogram Sinus Rhythm Invalid 7 - [facility] interpretation -Nonspecific Interpretation 017 Group (96520) ST depression Code -[place] c. ABNORMAL GE use only - for 417 ms Invalid 01-08-2017 - [facility] import when Interpretation Group (34487) terms are not Code otherwise specified Interpretation Sinus Rhythm Invalid 01-08-2017 - [place] -Nonspecific Interpretation 01-08-[address] depression Code (58126 ) -[place] c. ABNORMAL P [place] 49 deg Invalid 01-08-2017 - [place] Interpretation 01-08-2017 [facility] Code (13797) P wave axis, 49 deg Invalid 01-08-2017 - [facility] electrocardiogram Interpretation 017 Group (53896) Code RI Interval 130 ms Invalid 01-08-2017 - [place] Interpretation 01-08-2017 [facility] Code (47541) RI interval, 130 ms Invalid 01-08-2017 - [facility] electrocardiogram Interpretation 017 Group (46872) Code Pulse (Heart Rate) 96 BPM /min Invalid 01-08-2017 - [facility] Interpretation 01-08-2017 Grou p (78574) Code QRS axis, 80 deg Invalid 01-08-2017 - [facility] electro[facility]ogram Interpretation 017 Group (34962) Code QRS Duration 92 ms Invalid 01-08-2017 - [place] Interpretation 01-08-2017 [facility] Code (10858) QRS duration, 92 ms Invalid 01-08-2017 - [place] [facility] electrocardiogram Interpretation 017 Group (16700) Code QT Interval new path ms Invalid 01-08-2017 - [place] Interpretation 01-08-2017 [facility] Code (53626) QT interval, new path ms Invalid 01-08-2017 - [place] [facility] electrocardiogram Interpretation 017 Group (16832) Code QTc [place] 417 ms Invalid 01-08-2017 - [place] Interpretation 01-08-2017 [facility] Code (70149) T [place] 58 deg Invalid 01-08-2017 - [place] Interpretation 01-08-2017 [facility] Code (07786) T wave axis, 58 deg Invalid 01-08-2017 - [facility] electrocardiogram Interpretation 017 Group (52356) Code office visit: rishi wheat 2017-01-08 Dietary management yes Invalid 01-08-2017 - [facility] education, Interpretation Code 7 Group (93403) guidance, and counseling (procedure) Documentation of Done Invalid 01-08-2017 - [facility] current medications Interpretation Code 01-08-2017 Group (69890) (procedure) Fall risk No Invalid 01-08-2017 - [facility] assessment Interpretation Code 7 Group (49601) Smoking cessation yes Invalid 01-08-2017 - [facility] education Interpretation Code 01-08-2017 Group (80100) (procedure) Tobacco use CPHS Current every Invalid 7 - [facility] day smoker Interpretation Code 7 Group (75169) lab report: pap i-g hpv hi risk on 2016-12-19 GE use only - Negative Negative Invalid 12-19-2016 - [place] [facility] Interpretation Code 2016 [facility] import when (71292) terms are not otherwise specified HPV HC,HGH RISK Negative Negative 12-19-2016 - [place] 12-19-2016 [facility] (72594) office visit: est annual on 2016-12-14 Documentation of Done Invalid 12-14-2016 - [place] current medications Interpretation Code 12-14-2016 [facility] (procedure) (02318) Fall risk No 12-14-2016 - [place] assessment 12-14-2016 [facility] (11532) Hemoglobin.gastroin not done 12-14-2016 - [place] testinal Ql (St) 12-14-2016 [facility] (00887) Protein mass conc Done 12-14-2016 - [place] 12-14-2016 [facility] (79792) Tobacco smoking Current 12-14-2016 - [place] status NHIS every day 12-14-2016 [facility] smoker (06939) Tobacco smoking Never 12-14-2016 - [place] status NHIS 12-14-2016 [facility] (60257) Tobacco use CPHS Current Invalid 12-14-2016 - [place] every day Interpretation Code 12-14-2016 [facility] smoker (13696) replaced document: (p) culture, urine on 2016-11-30 CUUR . 11-30-2016 - [place] [facility] 11-30-2016 Care (921 91) GE use only - for . Invalid Interpretation 11-30-2016 [facility] import Code 11-30-2016 Ca re (92854) when terms are not otherwise specified microbiology: (p) culture, urine on 2016-11-29 GE use only - Urine Invalid 11-29-2016 - [facility] for [facility] CultureCulture Interpretation Code 0 11-29-2016 [facility] import when exhibits no growth. (91891) terms are not otherwise specified office visit: patient concerned about cy st on 2016-11-27 Albumin Ql (U) negative 11-27-2016 - [place] 11-27-2016 [facility] (87345) Appearance Nom (U) cloudy 11-27-2016 - [place] 11-27-2016 [facility] (55598) Bilirubin Ql (U) negative 11-27-2016 - [place] 11-27-2016 [facility] (73176) blood in urine non-hemolyzed Invalid 11-27-2016 [place] (hemoglobin) by trace Interpretation 7 [facility] dipstick Code (59536) Color Nom (U) lt. yellow 11-27-2016 - [place] 11-27-2016 [facility] (03258) Documentation of Done Invalid 11-27-2016 [place] current Interpretation 11-27-2016 [facility] medications Code (96903) (procedure) Fall risk No Invalid 11-27-2016 [facility] [place] assessment Interpretation 11-27-2016 [facility] Code (01774) Glucose Test strip negative 11-27-2016 [place] mass conc (U) 11-27-2016 [facility] (40828) Hemoglobin.gastroi not done Invalid 11-27-2016 [place] ntestinal Ql (St) Interpretation 017 [facility] Code (11125) Ketones mass conc negative 11-27-2016 [place] (U) 11-27-2016 [facility] (23125) Leukocyte esterase negative 11-27-2016 [place] Test strip Ql (U) 11-27-2016 [facility] (47293) Nitrite Ql (U) negative 11-27-2016 - [place] 11-27-2016 [facility] (75031) pH (U) 5.0 [pH] [facility] (39571) Protein mass conc Done 11-27-2016 - [place] 11-27-2016 [facility] (28192) Protein mass conc yes 11-27-2016 - [place] 11-27-2016 [facility] (76841) Smoking cessation yes Invalid 11-27-2016 - [place] education Interpretation 11-27-2016 [facility] (procedure) Code (21978) Specific gravity 1.010 11-27-2016 [place] Refractometry 11-27-2016 [facility] Relative Density (44 691) (U) specific gravity, 1.010 Invalid 11-27-2016 [place] urine Interpretation 11-27-2016 [facility] Code (77054) Tobacco smoking Current every 11-27-2016 - [place] status WYIS day smoker 11-27-2016 [facility] (95687) Tobacco smoking Never Invalid 11-27-2016 - [place] status NHIS Interpretation 11-27-2016 [facility] Code (73031) Tobacco use CPHS Current every Invalid - [place] day smoker Interpretation 11-27-2016 [facility] Code (67125) Urine, bilirubin negative Invalid 11-27-2016 [place] presence Interpretation 11-27-2016 [facility] Code (83069) Urine, glucose negative Invalid 11-27-2016 - [place] presence Interpretation 11-27-2016 [facility] Code (60329) Urine, ketones negative Invalid 11-27-2016 - [place] presence Interpretation 11-27-2016 [facility] Code (53193) Urine, nitrite negative Invalid 11-27-2016 - [place] presence Interpretation 11-27-2016 [facility] Code (47893) Urine, pH 5.0 [pH] Invalid [facility] Code (18402) Urine, protein negative mg/dL Invalid 11-27-2016 - [place] Interpretation 11-27-2016 [facility] Code (24634) Urobilinogen Test negative 11-27-2016 - [place] strip Ql (U) 11-27-2016 [facility] (10038) office visit: est annual on 2016-11-16 Fall risk assessment No 7 - [facility] Surgical 11-16-2016 Associate s (17162) Protein mass conc Done 11-16-2016 - [facility] Surgical 11-16-2016 Associate s (71414) Tobacco smoking Current every day 2016 - [facility] Surgical status WYIS smoker 11-16-2016 [facility] (40478) Tobacco smoking Never 11-16-2016 - [facility] status WYIS 11-16-2016 [facility]oc[facility] inocencio (38832) office visit: mmm o n 2014-08-22 cardiac risk group B 08-22-2014 - [facility] Surgical 08-22-2014 Associate s (54390) Dietary management yes Invalid 08-22-2014 [facility] education, Interpretation 08-22-2014 [facility] guidance, and Code (87071 ) counseling (procedure) General Not enough 08-22-2014 [facility] [place] rgical cardiovascular information 08-22-2014 As sociates disease 10Y risk (55 015) [#] [place] no Protein mass conc yes 08-22-2014 - [facility] Surgical 08-22-2014 Associate s (11122) chart maintenance o n 2013-11-20 Hematocrit (HCT) 42.5 % Invalid 11-20-2013 - [place] Interpretation Code 11-20-2013 [facility] (64428) Hematocrit Volume 42.5 % 11-20-2013 [facility] Surgical Fraction (Bld) 11-20-2013 Asso ciainocencio (70677) Hemoglobin mass 14.5 g/dL 11-20-2013 - [facility] conc (Bld) 11-20-2013 Associat es (59983) Platelets 272 10*3/mm3 Invalid 11-20-2013 - [facility] [place] Interpretation Code 11-20-2013 [facility] (30580) Platelets #/vol 272 10*3/mm3 11-20-2013 - [facility] Surgical (Bld) 11-20-2013 Associate [facility] (23008) WBC #/vol (Bld) 10.2 10*9/L 11-20-2013 - [facility] 11-20-2013 Associate [facility] (48898) WBC (Leukocytes) 10.2 10*9/L Invalid 11-20-2013 - [place] Interpretation Code 11-20-2013 [facility] (49288) chart maintenance o n 2013-10-21 Anion gap 7 mmol/L Invalid 10-21-2013 - [facility] [place] Interpretation Code 10-21-2013 [facility] (93237) Anion gap 4 molar 7 Invalid 10-21-2013 - [place] conc Interpretation Code 10-21-2013 [facility] (72224) Anion gap molar 7 mmol/L 10-21-2013 - [facility] 10-21-2013 Associate s (23090) Calcium mass conc 8.9 mg/dL 10-21-2013 - [facility] Surgical 10-21-2013 Associate s (31739) Chloride molar 109 mmol/L High 10-21-2013 - [facility] Surgical conc 10-21-2013 Associate s (50585) CO2 26 mmol/L Invalid 10-21-2013 - [facility] [place] Interpretation Code 10-21-2013 [facility] (74371) CO2 ppres (BldV) 26 mmol/L 10-21-2013 - [facility] Surgical 10-21-2013 Associate s ([id number]) Creatinine mass 0.8 mg/dL 10-21-2013 - W Surgical conc 10-21-2013 Associate s ([id number]) Glucose 118 mg/dL High 10-21-2013 [facility] (19581) Glucose mass conc 118 mg/dL High 10-21-2013 - [facility] Surgical 10-21-2013 Associate s ([id number]) Potassium molar 3.4 mmol/L Low 10-21-2013 - W Surgical conc 10-21-2013 Associate s ([id number]) Sodium molar conc 142 mmol/L 10-21-2013 - [facility] Surgical 10-21-2013 Associate s ([id number]) Thyrotropin Qn 3.36 u[iU]/mL 10-21-2013 - [facility] Surgical 10-21-2013 Associate s ([id number]) Urea nitrogen 8 mg/dL 10-21-2013 - [facility] Surgical mass conc 10-21-2013 Associate s ([id number]) Urea 10.0 mg/mg 10-21-2013 - [facility] Ramila gical nitrogen/Creatini 10-21-2013 A ssociates ne mass ratio (08029 ) clinical lists update: preload on 2012-12-28 Erythrocytes (RBC) 5.04 10*6/uL Invalid 12-28-2012 - [place] Interpretation Code 12-28-2012 [facility] (19403) MCH 32.3 pg High 12-28-2012 - [place] 12-28-2012 [facility] (53439) MCH Entitic mass 32.3 pg High 12-28-2012 - [facility] Surgical (RBC) 12-28-2012 Associate s ([id number]) MCV 94.2 fL Invalid 12-28-2012 - [facility] [place] Interpretation Code 12-28-2012 [facility] (30205) MCV Entitic volume 94.2 fL 12-28-2012 - [facility] Surgical (RBC) 12-28-2012 Associate s ([id number]) RBC #/vol (Bld) 5.04 10*6/uL 12-28-2012 - W Surgical 12-28-2012 Associate s ([id number]) replaced document: midmark ecg observati ons on 2012-11-25 EKG QRS axis 54 deg 11-25-2012 - [facility] Surgical 11-25-2012 Associate s ([id number]) electrocardiogram Sinus Rhythm Invalid 3 - [place] interpretation -With rate Interpretation 3 [facility] variation cv Code (33886) = 10.-Nonspecif ic ST depression -[place] c . ABNORMAL Interpretation Sinus Rhythm 11-25-2012 - [facility] Surgical -With rate 11-25-2012 Associat es variation cv (96717) = 10.-Nonspecif ic ST depression -[place] c . ABNORMAL P [place] 49 deg 11-25-2012 - [facility] Ramila gical 11-25-2012 Associate s ([id number]) P wave axis, 49 deg Invalid 11-25-2012 - [place] electrocardiogram Interpretation 013 [facility] Code (92192) RI Interval 132 ms 11-25-2012 - [facility] S urgical 11-25-2012 Associate s ([id number]) RI interval, 132 ms Invalid 11-25-2012 - [place] electrocardiogram Interpretation 013 [facility] Code (38623) Pulse (Heart Rate) 73 BPM /min Invalid 11-25-2012 - [place] Interpretation 11-25-2012 [facility] Code (52605) Pulse (Heart Rate) 413 ms Invalid 11-25-2012 - [place] Interpretation 11-25-2012 [facility] Code (40157) QRS axis, 54 deg Invalid 11-25-2012 - [place] electrocardiogram Interpretation 013 [facility] Code (90191) QRS Duration 96 ms 11-25-2012 - [facility] Surgical 11-25-2012 Associate s ([id number]) QRS duration, 96 ms Invalid 11-25-2012 - [place] electrocardiogram Interpretation 013 [facility] Code (17064) QT Interval new path ms 11-25-2012 - [facility] Surgical 11-25-2012 Associate s ([id number]) QT interval, new path ms Invalid [facility] Interpretation 013 [facility] Code (63711) T [place] 48 deg 11-25-2012 - [facility] Ramila gical 11-25-2012 Associate s ([id number]) T wave axis, 48 deg Invalid 11-25-2012 - [place] electrocardiogram Interpretation 013 [facility] Code (13213) ekg report: midmark ecg observations on 2012-11-25 QTc Silva 412 ms 11-25-2012 - 2012 [facility] ([id number]) Vital Signs Vital Sign Description Value / Unit Date Location The following section is limited to 5 en tries per type and includes entries from the following time range: 20161127 - [id number] 0. BMI (Body Mass Index) 37.49 kg/m2 01-13-2017 - 01-13-2017 [facility] ([id number]) BMI (Body Mass Index) 37.55 kg/m2 01-08-2017 - 01-08-2017 [facility] (10661) BMI (Body Mass Index) 37.13 kg/m2 12-14-2016 - 12-14-2016 [place] [facility] (51315) BMI (Body Mass Index) 36.58 kg/m2 11-27-2016 - 11-27-2016 [facility] (63597) BMI (Body Mass Index) 36.94 kg/m2 11-16-2016 - 11-16-2016 [facility] Surgical [facility] ([id number]) Body Temperature 98.4 [degF] 01-13-2017 - 01-13-2017 [facility] gical Associates ([id number]) Body Temperature 97.11 [degF] 12-14-2016 - 12-14-2016 [place] [facility] (70186) Body Temperature 97.1 [degF] 12-14-2016 - 12-14-2016 [place] [facility] (14028) Body Temperature 97.8 [degF] 11-27-2016 - 11-27-2016 [place] [facility] (43179) Body Temperature 97.81 [degF] 11-27-2016 - 11-27-2016 [place] [facility] (29084) Body weight 91.63 kg 02-05-2020 [facility] (48866) BP Diastolic 84 mm[Hg] 02-05-2020 [facility] (37265) BP Diastolic 77 mm[Hg] 01-13-2017 - 01-13-2017 [facility] Surg ical Associates ([id number]) BP Diastolic 82 mm[Hg] 01-08-2017 - 01-08-2017 [facility] ([id number]) BP Diastolic 75 mm[Hg] 12-14-2016 - 12-14-2016 [place] [facility] (85826) BP Diastolic 84 mm[Hg] 11-27-2016 - 11-27-2016 [place] [facility] (62917) BP Systolic 142 mm[Hg] 02-05-2020 [facility] ([id number]) BP Systolic 114 mm[Hg] 01-13-2017 - 01-13-2017 [facility] Surg ical Associates ([id number]) BP Systolic 120 mm[Hg] 01-08-2017 - 01-08-2017 [facility] ([id number]) BP Systolic 113 mm[Hg] 12-14-2016 - 12-14-2016 [place] [facility] (31729) BP Systolic 127 mm[Hg] 11-27-2016 - 11-27-2016 [place] [facility] (75167) BSA (Body Surface Area) 1.83 m2 08-22-2014 - 08-22-2014 [facility] ([id number]) Heart rate 96 /min 01-08-2017 - 01-08-2017 [place] [facility] (25635) Heart rate 413 ms 11-25-2012 - 11-25-2012 [facility] Surg ical Associates ([id number]) Heart rate 73 /min 11-25-2012 - 11-25-2012 [facility] S[facility] ([id number]) Height 157.48 cm 01-13-2017 - 01-13-2017 [facility] S[facility] ical [facility] ([id number]) Height 157.48 cm 01-08-2017 - 01-08-2017 [facility] ([id number]) Height 157.48 cm 12-14-2016 - 12-14-2016 [place] [facility] (87628) Height 157.48 cm 11-27-2016 - 11-27-2016 [place] [facility] (24272) Height 157.48 cm 11-16-2016 - 11-16-2016 [facility] Surg ical Associates ([id number]) Pulse (Heart Rate) 100 /min 02-05-2020 [facility] ([id number]) Pulse (Heart Rate) 95 /min 01-13-2017 - 01-13-2017 [facility] S urgical Associates (96035) Respiratory Rate 16 /min 02-05-2020 [facility] ([id number]) Respiratory Rate 18 /min 01-13-2017 - 01-13-2017 [facility] Ramila gical Associates ([id number]) Respiratory Rate 20 /min 01-08-2017 - 01-08-2017 [facility] ([id number]) Respiratory Rate 16 /min 12-14-2016 - 12-14-2016 [place] [facility] (03075) Respiratory Rate 16 /min 11-27-2016 - 11-27-2016 [place] [facility] (13210) Weight 92.99 kg 01-13-2017 - 01-13-2017 [facility] Surg ical Associates ([id number]) Weight 93.13 kg 01-08-2017 - 01-08-2017 [facility] ([id number]) Weight 92.08 kg 12-14-2016 - 12-14-2016 Emery taylor [facility] (27937) Weight 90.72 kg 11-27-2016 - 11-27-2016 [facility] ([id number]) Encounters Date Type Reason Provider Location 12-12-2019 - 12-12-2019 Chart abstracting Sleep [facility] Main Neurology Comment: HSAT Check In (Adult) 02-01-2020 - 02-01-2020 [facility] Hypoxia Hugo Nava [facility] Lexi Comment: Hypoxia (Primary Dx); ANDRESSA (obstructive sleep apnea ); Depression, unspecified depr ession type; Impaired glucose tolerance; Attention deficit hyperactiv ity disorder (ADHD), combined type 01-29-2020 - E-mail encounter [facility] Provider Zack rubio 01-29-2020 from carer 10-12-2017 Patient Dizziness and UNKNOWN PROVIDER [facility] giddiness Perez [employer] [facility] [employer] System (0 [phone]) Hugo Nava 06-30-2017 Patient [facility] UN[facility] PROVIDER System ([phone]) 04-22-2017 Patient [facility]KNOWN [facility]ER [facility] UNKNOWN PROVIDER System ([phone]) 02-05-2020 - Patient Mitral valve Richa Rubin Cardiolog y 02-05-2020 encounter prolapse procedure Comment: Mitral valve prolapse (Prima ry Dx); SVT (supraventricular tachyc ardia) (HCC); Hypoxia; Tobacco use; Other chest pain 01-29-2020 Patient encounter procedure [facility] Provider Family Medicine Lexi Comment: RE:Sleep study results 01-24-2020 - Patient encounter Obstructive sleep Hugo Nava [facility] 01-24-2020 procedure apnea syndrome Lexi Comment: RE: Test Result Question 01-04-2020 - Patient encounter Bacterial Hugo Nava [facility] edicine 01-04-2020 procedure sinusitis [place] Comment: Bacterial sinusitis (Primary Dx) 12-14-2019 - Patient [facility] 12-14-2019 encounter procedure 12-11-2019 - Patient Postablative [facility] 12-11-2019 encounter hypothyroidism (Pa-C) Ceja Lexi procedure Comment: Swelling of both lower extre mities (Primary Dx); Postablative hypothyroidism; Elevated hemoglobin (HCC) 12-07-2018 Patient encounter Disease -[facility] Medical procedure [facility] ([id number]) 08-03-2018 Patient encounter Disease [facility] ([id number]) 06-20-2018 - Patient encounter SENIA Antonieta Brittany Facility:[facility] 06-20-2018 procedure IMCA [facility] LATASHA BOLTON 01-19-2018 Patient encounter Disease [facility] ([id number]) 09-22-2017 Patient encounter Disease [facility] ([id number]) 06-21-2017 Patient encounter Disease [facility] ([id number]) 02-05-2020 - Phys/qhp online Treatment not Marlin K Telemedicin e 02-05-2020 evaluation & available [facility] management service Comment: Treatment not available (Shagufta stephanie Dx) 12-31-2019 - 12-31-2019 Refill Esophageal disorders Karo Callahan Endocrinology Comment: Refill Request 12-14-2019 Results Only Hugo Lewis Medichang Crawley 01-04-2020 - Telemedicine Hugo [facility] 01-04-2020 consultation with patient 12-11-2019 - Telemedicine Antonieta Kwong) [facility] 12-11-2019 consultation with Ceja patient 01-29-2020 - [facility]2020 Lex[facility] Comment: Results - Sleep Study 01-11-2020 - 01-11-2020 Telephone encounter Antonieta Kwong) Family Medicine Marcial Crawley Comment: needs notes supporting sleep study order 2019 - 2019 Telephone encounter Hugo Lemons [facility] Lexi Comment: results home sleep study Procedures Procedure Name Date Provider Location Polysom 6/>yrs sleep 4/> 12-14-2019 Hugo [facility] addl unique attnd ([id number]) Mammography 06-16-2019 - [facility] 06-16-2019 ([id number]) Dietary management 02-15-2017 - [facility] Surgical education, guidance, and 02-15-2017 Assoc[facility] inocencio (33451) counseling Colonoscopy 02-10-2017 - [facility] 02-10-2017 ([id number]) Dietary management 01-13-2017 - [facility] michele education, guidance, and 01-13-2017 Care (4 [id number]) counseling Screening for malignant 01-13-2017 Emery taylor [facility] neoplasm of colon Care (59356) Ecg routine ecg w/least 12 01-08-2017 - Ayan Koehler NP [place] [facility] lds w/i&r 01-08-2017 Care ([id number]) Follow Up Appt 6 months 01-08-2017 - Ayan Koehler NP Emer[facility] t[facility] 01-08-2017 Care ([id number]) PF 01-08-2017 - Ayan Koehler [facility] [place] [facility] 01-08-2017 Care ([id number]) Electrocardiogram, complete 01-08-2017 - Ayan Koehler [facility] 01-08-2017 ([id number]) Follow Up Appt 6 months 01-08-2017 - Ayan Koehler NP [facility] 01-08-2017 (75681) PF 01-08-2017 - Ayan Koehler NP [facility] 01-08-2017 (94602) Gynecologic examination 12-14-2016 [facility] t[facility] (23640) Screening for malignant 12-14-2016 Emer[facility] t[facility] neoplasm of cervix Care (35889) Gynecologic examination 12-14-2016 [facility] t[facility] (54197) Screening for malignant 12-14-2016 Emer[facility] t[facility] neoplasm of cervix Care (51265) Bacteria identified in 11-27-2016 - Michelle Sexton elyssagabrielle [facility] Urine by Culture 12-21-2016 Care ([id number]) Urinalysis 11-27-2016 - [facility] Wo n's 11-27-2016 Care ([id number]) Bacteria identified in 11-27-2016 - Michelle Sexton elyssagabrielle Women[facility] Urine by Culture 12-21-2016 Care ([id number]) Dietary management 08-22-2014 - [facility] Surgical education, guidance, and 08-22-2014 Assoc[facility] inocencio (66852) counseling Documentation of current 08-22-2014 - [facility] 08-23-2014 PA-C Care (16902) Follow Up Appt Other 08-22-2014 - Annabella Baker [facility] 08-22-2014 [facility] Care ([id number]) Smoking cessation education 08-22-2014 - Pati Richardson , [facility] 08-23-2014 PA[facility]C Care (55071) Documentation of current 08-22-2014 - Pati Richardson, W Surgical medications 08-23-2014 [facility] Associates (4469 1) Follow Up Appt Other 08-22-2014 - Pati Richardson, [facility] S urgical 08-22-2014 [facility] (4469 1) Smoking cessation education 08-22-2014 - Pati Richardson , [facility] Surgical 08-23-2014 [facility] ([phone] 1) Follow Up Appt 6 months 11-20-2013 [facility] ([id number]) [facility] 11-20-2013 - Blair Canseco MD [facility] 11-20-2013 Care ([id number]) Follow Up Appt 6 months 11-20-2013 - Blair Canseco MD [facility] Surgical 11-20-2013 Associates (4469 1) [facility] 11-20-2013 - Blair Canseco MD [facility] Surgical 11-20-2013 Associates ([phone] 1) Follow Up Appt 6 months 05-25-2013 - Pati Richardson [facility] 05-25-2013 PA-C Care ([id number]) [facility] 05-25-2013 - Pati Richardson [facility] 05-25-2013 PA-C Care ([id number]) Follow Up Appt 6 months 05-25-2013 - Pati Richardson [facility] Surgical 05-25-2013 PA[facility]C Associates (4469 1) [facility] 05-25-2013 - Pati Richardson [facility] Surgic al 05-25-2013 PA[facility] Associates ([phone] 1) Follow Up Appt 3 months 01-11-2013 - Pati Richardson [facility] 05-25-2013 PA-C Care (70859) [facility]-11-2013 - [facility] ([id number]) Follow Up Appt 3 months 01-11-2013 - Pati Richardson, [facility] Surgical 05-25-2013 PA[facility] Associates (4469 1) PFM 01-11-2013 - Pati Richardson, [facility] Surgic al 05-25-2013 [facility] ([phone] 1) Ecg routine ecg w/least 12 11-25-2012 - Blair Canseco MD [facility] Women's lds w/i&r 11-25-2012 Care ([id number]) Echocardiography 11-25-2012 - Blair Canseco MD [facility] 12-29-2012 Care ([id number]) Follow Up Appt 6 weeks 11-25-2012 - Blair Canseco MD [facility] 11-25-2012 Care ([id number]) MMM 11-25-2012 - Blair Canseco MD [facility] 11-25-2012 Care ([id number]) Stress Echocardiogram 11-25-2012 - Blair Canseco MD [facility] (treadmill) 12-29-2012 Care ([id number]) Xtrnl mobile cv telemetry 11-25-2012 - Blair Canseco MD [facility] w/i&report 30 days 01-11-2013 Care ([id number]) Ecg routine ecg w/least 12 11-25-2012 - Blair Canseco MD W Surgical lds w/i&r 11-25-2012 Associates ([phone] 1) Echocardiography 11-25-2012 - Blair Canseco MD [facility] Surgica l 12-29-2012 Associates ([phone] 1) Follow Up Appt 6 weeks 11-25-2012 - Blair Canseco MD [facility] S urgical 11-25-2012 Associates ([phone] 1) MMM 11-25-2012 - Blair Canseco MD [facility] Surgical 11-25-2012 Associates (4469 1) Stress Echocardiogram 11-25-2012 - Blair Canseco MD [facility] [place] [facility] (treadmill) 12-29-2012 Associates ([phone] 1) Xtrnl mobile cv telemetry 11-25-2012 - Blair Canseco MD [facility] Surgical w/i&report 30 days 01-11-2013 Associates (4 [phone]) Oophorectomy [facility] (53488) Plan of Treatment Plan Description Date Location DTAP,TDAP,TD (2 - Td) DTAP,TDAP,TD (2 - Td) 01-26-2028 - [facility] 01-26-2028 ([id number]) LIPID SCREEN LIPID SCREEN 12-03-2024 - [facility] 12-03-2024 ([id number]) HPV TESTING HPV TESTING 11-25-2023 - [facility] 11-25-2023 ([id number]) PAP TESTING PAP TESTING 11-25-2023 - [facility] 11-25-2023 ([id number]) DIABETES SCREEN DIABETES SCREEN 12-03-2022 - [facility] 12-03-2022 ([id number]) MAMMOGRAM MAMMOGRAM 06-16-2021 - [facility] 06-16-2021 ([id number]) ANNUAL PCP TEAM CHRONIC ANNUAL PCP TEAM CHRONIC 01-31-2021 - [facility] DISEASE VISIT DISEASE VISIT 01-31-2021 ([id number]) ANNUAL PCP TEAM CHRONIC ANNUAL PCP TEAM CHRONIC 01-03-2021 - [facility] DISEASE VISIT DISEASE VISIT 01-03-2021 ([id number]) ANNUAL PCP TEAM CHRONIC ANNUAL PCP TEAM CHRONIC 12-10-2020 - [facility] DISEASE VISIT DISEASE VISIT 12-10-2020 ([id number]) COLONOSCOPY COLONOSCOPY 02-11-2020 - [facility] 02-11-2020 ([id number]) COLORECTAL CANCER COLORECTAL CANCER 02-11-2020 [facility] inic SCREENING,SEE MODIFIER SCREENING,SEE MODIFIER ([phone]) T4 FREE/FREE THYROX T4 FREE/FREE THYROX Lab 01-25-2020 - [facility] Routine Postablative 12-10-2020 ([id number]) hypothyroidism Expected: 01/25/2020, Expires: 12/10/2020 Comment: Expected: 01/25/2020, s: 12/10/2020 TSH BLD TSH BLD Lab Routine 01-25-2020 - 12-10-2020 [facility] ([id number]) Postablative hypothyroidism Expected: 01/25/2020, Expires: 12/10/2020 Comment: Expected: 01/25/2020, s: 12/10/2020 INFLUENZA (#1) INFLUENZA (#1) 2019 - [facility] 12-26-2019 ([id number]) Appointment Appointment 09-15-2017 - [facility] 09-15-2017 ([id number]) Appointment Appointment 02-10-2017 - [place] [facility] 02-10-2017 Care ([id number]) Esophagus, Esophagus, 01-14-2017 - [place] [facility] gastroesophageal reflux gastroesophageal reflux 01-14-2017 Care (66303) test; Nash probe test; Nash probe Esophagus, Esophagus, 01-14-2017 - [place] [facility] gastroesophageal reflux gastroesophageal reflux 01-14-2017 Care ([id number]) test; Nash probe test; Nash probe Colonoscopy Colonoscopy 01-13-2017 - [place] [facility] 01-13-2017 Care ([id number]) EGD; diagnostic EGD; diagnostic 01-13-2017 - [place] [facility] 01-13-2017 Care ([id number]) Appointment Appointment 01-13-2017 - [facility] 01-13-2017 ([id number]) Colonoscopy Colonoscopy 01-13-2017 - [facility] Surgical 01-13-2017 Associates ([phone] 1) EGD; diagnostic EGD; diagnostic 01-13-2017 - [facility] Surgical 01-13-2017 Associates ([phone] 1) Appointment Appointment 01-08-2017 - [facility] 01-08-2017 ([id number]) Follow Up Appt 6 months Follow Up Appt 6 months 01-08-2017 - [place] [facility] 01-08-2017 Care ([id number]) PFM PFM 01-08-2017 - [place] [facility] 01-08-2017 Care ([id number]) Follow Up Appt 6 months Follow Up Appt 6 months 01-08-2017 - [facility] 01-08-2017 ([id number]) PFM PFM 01-08-2017 - [facility] 01-08-2017 ([id number]) Appointment Appointment 12-14-2016 - [facility] Surgical 12-14-2016 Associates ([phone] 1) *CUUR - Culture, Urine *CUUR - Culture, Urine [facility]-27-2016 [facility] ([place] Count) (New Market Count) 12-21-2016 Care ([id number]) US Pelvis US Pelvis 11-27-2016 - [place] [facility] 11-30-2016 Care ([id number]) US Transvaginal US Transvaginal 11-27-2016 - [place] [facility] 11-30-2016 Care ([id number]) Appointment Appointment 11-27-2016 - [place] [facility] 11-27-2016 Care ([id number]) *CUUR - Culture, Urine *CUUR - Culture, Urine 11-27-2016 - [facility] ([place] Count) (New Market Count) 12-21-2016 Care ([id number]) US Pelvis no information 11-27-2016 - [place] [facility] 11-30-2016 Care ([id number]) US Transvaginal US Transvaginal 11-27-2016 - [facility] n's 11-30-2016 Care ([id number]) SHINGRIX VACCINE (1 of SHINGRIX VACCINE (1 of 12-26-2015 - [facility] 2) 2) 12-26-2015 ([id number]) Follow Up Appt Other Follow Up Appt Other 08-22-2014 - [facility] Women's 08-22-2014 Care ([id number]) Follow Up Appt Other Follow Up Appt Other 08-22-2014 - [facility] rgical 08-22-2014 Associates ([phone] 1) Follow Up Appt 6 months Follow Up Appt 6 months 11-20-2013 - [place] [facility] 11-20-2013 Care ([id number]) MMM MMM 11-20-2013 - [facility] ns 11-20-2013 Care ([id number]) Follow Up Appt 6 months Follow Up Appt 6 months 11-20-2013 - [facility] Surgical 11-20-2013 Associates ([phone] 1) MMM MMM 11-20-2013 - [facility] Surgical 11-20-2013 Associates ([phone] 1) Follow Up Appt 6 months Follow Up Appt 6 months 05-25-2013 - [place] [facility] 05-25-2013 Care ([id number]) PFM PFM 05-25-2013 - [facility] n's 05-25-2013 Care ([id number]) Follow Up Appt 6 months Follow Up Appt 6 months 05-25-2013 - [facility] Surgical 05-25-2013 Associates ([phone] 1) PFM PFM 05-25-2013 - [facility] Surgical 05-25-2013 Associates ([phone] 1) Follow Up Appt 3 months Follow Up Appt 3 months 01-11-2013 - [place] [facility] 01-11-2013 Care ([id number]) PFM PFM 01-11-2013 - [place] [facility] 05-25-2013 Care ([id number]) Follow Up Appt 3 months Follow Up Appt 3 months 01-11-2013 - [facility] Surgical 01-11-2013 Associates ([phone] 1) PFM PFM 01-11-2013 - [facility] Surgical 05-25-2013 Associates ([phone] 1) EKG (In office) EKG (In office) 11-25-2012 - [place] [facility] 11-25-2012 Care ([id number]) Echocardiogram Echocardiogram 11-25-2012 - [facility] n's (complete) (complete) 11-25-2012 Care ([id number]) Follow Up Appt 6 weeks Follow Up Appt 6 weeks 11-25-2012 - [facility] Women[facility] 11-25-2012 Care ([id number]) MMM MMM 11-25-2012 - [place] [facility] 11-25-2012 Care (25387) Stress Echocardiogram Stress Echocardiogram 11-25-2012 - [facility] (treadmill) (treadmill) 11-25-2012 Care ([id number]) 30 Day Holter Monitor 30 Day Holter Monitor 11-25-2012 - [facility] Women's 11-25-2012 Care ([id number]) EKG (In office) EKG (In office) 11-25-2012 - [facility] Surgical 11-25-2012 Associates ([phone] 1) Echocardiogram Echocardiogram 11-25-2012 - [facility] Surgical (complete) (complete) 11-25-2012 Associates ([phone] 1) Follow Up Appt 6 weeks Follow Up Appt 6 weeks 11-25-2012 - [facility] Surgical 11-25-2012 Associates ([phone] 1) MMM MMM 11-25-2012 - [facility] Surgical 11-25-2012 Associates ([phone] 1) Stress Echocardiogram Stress Echocardiogram 11-25-2012 - [facility] Surgical (treadmill) (treadmill) 11-25-2012 Associates ([phone] 1) 30 Day Holter Monitor 30 Day Holter Monitor 11-25-2012 - [facility] Surgical 11-25-2012 Associates ([phone] 1) ADULT PREVNAR-13 ADULT PREVNAR-13 1984 - [facility] [place] ic 1984 ([id number]) TWO PNEUMOVAX 5 YEARS TWO PNEUMOVAX 5 YEARS 1984 - [facility] APART PRIOR TO AGE 65 APART PRIOR TO AGE 65 1984 ([phone]) (#1) (#1) HEPATITIS C SCREENING HEPATITIS C SCREENING 12-26-1983 - [facility] 12-26-1983 ([id number]) HIV SCREENING HIV SCREENING 12-26-1983 - [facility] 12-26-1983 ([id number]) PAP TITRATION PSG (CPAP, PAP TITRATION PSG (CPAP, 02-22-2021 [facility] BIPAP, ASV) BIPAP, ASV) Procedures (36137) Routine ANDRESSA (obstructive sleep apnea) 1 Occurrences starting 01/24/2020 until 02/22/2021 Comment: 1 Occurrences starting 01/23 until 02/22/2021 Patient education no information [facility] ([id number]) no information [facility] ([id number]) The following information is from the original human readable content Name Dates Details Planned Observations Planned Goals not documented Planned Encounters Appointment; Latasha Benites MD On: 03-May-2019 8:30 Immunizations Vaccine Notes Status Date Location Influenza Seasonal influenza, (completed) 01-10-2018 - [facility] Inj Quadrivalent Age injectable, 01-10-2018 ([id number]) 3+ quadrivalent, contains preservative Payers Payer Name Policy Number Location [facility] ([id number]) [employer] [id number] [facility] ([id number]) [employer] [id number] [facility] (44 195) [id number] [facility] ([id number]) The following information is from the original human readable contentNo Payer Records FoundNo Payer Records FoundNo Payer Records FoundNo Payer Records FoundNo Payer Records FoundNo Payer Records FoundNo Payer Records FoundNo Payer Records FoundNo Payer Records FoundNo Payer Records FoundNo Payer Records Found Social History Type Social History Date Location Description Tobacco smoking status Current every day smoker 1985 - [facility] NHIS 02-05-2020 ([id number]) History SDOH Social 2 12-08-2019 - [facility] Get Together 01-28-2020 ([id number]) History of tobacco use Cigarette Smoker 1985 [facility] ([id number]) Cigarettes smoked 12-08-2019 - [facility] [place] ic current (pack per day) - 02-05-2020 ([id number]) Reported Tobacco use and exposure Never used 12-08-2019 - [facility] 02-05-2020 ([id number]) Alcohol intake Current non-drinker of 12-08-2019 - [facility] alcohol (finding) 02-05-2020 ([id number]) History SDOH Alcohol 1 12-08-2019 - [facility] Frequency 12-08-2019 ([id number]) History SDOH Alcohol Std 98 12-08-2019 - [facility] Drinks 12-08-2019 ([id number]) History SDOH Social 5 12-08-2019 - [facility] Phone 01-28-2020 ([id number]) NEGATED: Highlighted row - [facility] ([id number]) History SDOH Social 3 12-08-2019 - [facility] 01-28-2020 ([id number]) History SDOH Physical 0 12-08-2019 - [facility] Activity DPW 12-08-2019 ([id number]) History SDOH Stress 4 12-08-2019 - [facility] in[facility] 12-08-2019 ([id number]) History SDOH Education 17 12-08-2019 - [facility] 12-08-2019 ([id number]) Tobacco Comment Has quit intermittently, 08-13-2016 - [facility] And I'm working on it 08-13-2016 ([id number]) now. 1st AM cigarette 10-15 minutes after awake. Most desired is that one, or last of day before bed. Prior 8 month quits, resumed after pregnancies completed. TO Sex Assigned At Female [facility] ([id number]) Exposure to SARS-CoV-2 Not sure [facility] (event) (03154) Exposure to SARS-CoV-2 Unable to assess [facility] (event) ([id number]) The following information is from the original human readable contentNo Social History Records FoundNo Social History Records FoundNo Social History Records FoundNo Social History Records FoundNo Social History Records FoundNo Social History Records FoundNo Social History Records FoundNo Social History Records FoundNo Social History Records FoundNo Social History Records FoundNo Social History Records FoundNo Social History Records FoundNo Social History Records FoundNo Social History Records FoundNo Social History Records Found Medical Equipment Equipment Code (if Equipment Original Equipment Procedure Code ( if Dates provided) Text (if provided) Identifier (if provided) provided) USE FOUR TIMES 01-09-2019 DAILY DIRECTED USE FOUR TIMES 01-09-2019 DAILY DIRECTED TEST four times a 11-01-2018 day USE FOUR TIMES 01-09-2019 DAILY DIRECTED TEST four times a 11-01-2018 day USE FOUR TIMES 01-09-2019 DAILY DIRECTED TEST four times a 11-01-2018 day USE FOUR TIMES 01-09-2019 DAILY DIRECTED TEST four times a 11-01-2018 day USE FOUR TIMES 01-09-2019 DAILY DIRECTED TEST four times a 11-01-2018 day USE FOUR TIMES 01-09-2019 DAILY DIRECTED TEST four times a 11-01-2018 day TEST four times a 11-01-2018 day TEST four times a 11-01-2018 day USE FOUR TIMES 01-09-2019 DAILY DIRECTED TEST four times a 11-01-2018 day USE FOUR TIMES 01-09-2019 DAILY DIRECTED TEST four times a 11-01-2018 day USE FOUR TIMES 01-09-2019 DAILY DIRECTED TEST four times a 11-01-2018 day USE FOUR TIMES 01-09-2019 DAILY DIRECTED TEST four times a 11-01-2018 day USE FOUR TIMES 01-09-2019 DAILY DIRECTED TEST four times a 11-01-2018 day USE FOUR TIMES 01-09-2019 DAILY DIRECTED Functional Status Status Assessment Result Location NEGATED: Highlighted Functional status health [facility] rowFunctional performance issues are not documented [facility] ([id number]) Mental Status Status Assessment Result Location NEGATED: Highlighted Cognitive status health [facility] rowCognitive function issues are not documented [facility] ([id number]) [Interpretation] Summary Purpose Family History No Family History Records Found Grandmother Name Dates Details Family history of Rheumatoid lung (714.81, M05.10) Status: Active aunt Name Dates Details Family history of Rheumatoid lung (714.81, M05.10) Status: Active cousin Name Dates Details Family history of systemic lupus erythematosus (V19.4, Z82.6 9) Status: Active Mother Name Dates Details Family history of type 2 diabetes mellitus (V18.0, Z83.3) Status: Active Father Name Dates Details Family history of myocardial infarction (V17.3, Z82.49) Status: Active Family history of S/P CABG (coronary artery bypass graft) (V 45.81, Z95.1) Status: Active Family history of hypertension (V17.49, Z82.49) Status: Active Advance Directives No Advanced Directives Records Found Documents on File Type Date Recorded 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) 06/05/2015 8:15 AM Documents on File Type Date Recorded 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 -sick contact with her son and her barbarae r who had the same symptoms. -completed 5 days course of Tamiflu. - not likely bacterial. - Likely viral infection Plan: -viral respiratory panel. -Tylenol PRN. Pneumonia 05/14/2013 07/11/2014 Overview: -Atypical pneumonia vs viral pneumonia -She did NOT improve after the 5 days co urse of Tamiflu. -Her CXR at the OSH showed interstitial infiltrated. -on levofloxacin since 05/11 - Afebrile, no leukocytosis Plan: -CXR: edema versus atypical infection, c linically patient not looking like infection or edema -Wean her for O2 as tolerated. -Stop levofloxacin -Blood culture x2: pending Post-menopause 10/21/2011 03/18/2015 Unspecified aftercare 05/26/2011 10/06/2011 Excessive or frequent menstruation 01/05/200710/05 Irregular menstrual cycle 01/05/2007 10/06/2011 Abdominal pain, chronic, right upper quadrant 10/06/2011 Weight gain 10/19/2017 Problem Noted Date Resolved Date Postmenopausal HRT (hormone replacement therapy) 12/13/2015 11/09/2016 Encounter for screening mammogram for malignant neoplasm of 12/12/2015 11/09/2016 breast Delayed emergence from anesthesia 09/27/20142017 On home oxygen therapy 09/27/2014 12/13/2015 Ovarian cyst 09/24/2014 03/18/2015 Marital conflict 08/30/2013 07/11/2014 Adrenal disorder 05/24/2013 07/11/2014 URI (upper respiratory infection) 05/14/20132014 Overview: -cough , fever, headache, nasal congestion and muscle ache started last Wednesday. -sick contact with her son and her joanna r who had the same symptoms. -completed 5 days course of Tamiflu. - not likely bacterial. - Likely viral infection Plan: -viral respiratory panel. -Tylenol PRN. Pneumonia 05/14/2013 07/11/2014 Overview: -Atypical pneumonia vs viral pneumonia -She did NOT improve after the 5 days co urse of Tamiflu. -Her CXR at the OSH showed interstitial infiltrated. -on levofloxacin since 05/11 - Afebrile, no leukocytosis Plan: -CXR: edema versus atypical infection, c linically patient not looking like infection or edema -Wean her for O2 as tolerated. -Stop levofloxacin -Blood culture x2: pending Post-menopause 10/21/2011 03/18/2015 Unspecified aftercare 05/26/2011 10/06/2011 Excessive or frequent menstruation 01/05/200710/05 Irregular menstrual cycle 01/05/2007 10/06/2011 Abdominal pain, chronic, right upper quadrant 10/06/2011 Weight gain 10/19/2017 Problem Noted Date Resolved Date Postmenopausal HRT (hormone replacement therapy) 12/13/2015 11/09/2016 Encounter for screening mammogram for malignant neoplasm of 12/12/2015 11/09/2016 breast Delayed emergence from anesthesia 09/27/20142017 On home oxygen therapy 09/27/2014 12/13/2015 Ovarian cyst 09/24/2014 03/18/2015 Marital conflict 08/30/2013 07/11/2014 Adrenal disorder 05/24/2013 07/11/2014 URI (upper respiratory infection) 05/14/20132014 Overview: -cough , fever, headache, nasal congestion and muscle ache started last Wednesday. -sick contact with her son and her barbarae r who had the same symptoms. -completed 5 days course of Tamiflu. - not likely bacterial. - Likely viral infection Plan: -viral respiratory panel. -Tylenol PRN. Pneumonia 05/14/2013 07/11/2014 Overview: -Atypical pneumonia vs viral pneumonia -She did NOT improve after the 5 days co urse of Tamiflu. -Her CXR at the OSH showed interstitial infiltrated. -on levofloxacin since 05/11 - Afebrile, no leukocytosis Plan: -CXR: edema versus atypical infection, c linically patient not looking like infection or edema -Wean her for O2 as tolerated. -Stop levofloxacin -Blood culture x2: pending Post-menopause 10/21/2011 03/18/2015 Unspecified aftercare 05/26/2011 10/06/2011 Excessive or frequent menstruation 01/05/200710/05 Irregular menstrual cycle 01/05/2007 10/06/2011 Abdominal pain, chronic, right upper quadrant 10/06/2011 Weight gain 10/19/2017 Problem Noted Date Resolved Date Postmenopausal HRT (hormone replacement therapy) 12/13/2015 11/09/2016 Encounter for screening mammogram for malignant neoplasm of 12/12/2015 11/09/2016 breast Delayed emergence from anesthesia 09/27/20142017 On home oxygen therapy 09/27/2014 12/13/2015 Ovarian cyst 09/24/2014 03/18/2015 Marital conflict 08/30/2013 07/11/2014 Adrenal disorder 05/24/2013 07/11/2014 URI (upper respiratory infection) 05/14/20132014 Overview: -cough , fever, headache, nasal congestion and muscle ache started last Wednesday. -sick contact with her son and her barbarae r who had the same symptoms. -completed 5 days course of Tamiflu. - not likely bacterial. - Likely viral infection Plan: -viral respiratory panel. -Tylenol PRN. Pneumonia 05/14/2013 07/11/2014 Overview: -Atypical pneumonia vs viral pneumonia -She did NOT improve after the 5 days co urse of Tamiflu. -Her CXR at the OSH showed interstitial infiltrated. -on levofloxacin since 05/11 - Afebrile, no leukocytosis Plan: -CXR: edema versus atypical infection, c letty patient not looking like infection or edema -Wean her for O2 as tolerated. -Stop levofloxacin -Blood culture x2: pending Post-menopause 10/21/2011 03/18/2015 Unspecified aftercare 05/26/2011 10/06/2011 Excessive or frequent menstruation 01/05/200710/05 Irregular menstrual cycle 01/05/2007 10/06/2011 Abdominal pain, chronic, right upper quadrant 10/06/2011 Weight gain 10/19/2017 Problem Noted Date Resolved Date Postmenopausal HRT (hormone replacement therapy) 12/13/2015 11/09/2016 Encounter for screening mammogram for malignant neoplasm of 12/12/2015 11/09/2016 breast Delayed emergence from anesthesia 09/27/20142017 On home oxygen therapy 09/27/2014 12/13/2015 Ovarian cyst 09/24/2014 03/18/2015 Marital conflict 08/30/2013 07/11/2014 Adrenal disorder 05/24/2013 07/11/2014 URI (upper respiratory infection) 05/14/20132014 Overview: -cough , fever, headache, nasal congestion and muscle ache started last Wednesday. -sick contact with her son and her barbarae r who had the same symptoms. -completed 5 days course of Tamiflu. - not likely bacterial. - Likely viral infection Plan: -viral respiratory panel. -Tylenol PRN. Pneumonia 05/14/2013 07/11/2014 Overview: -Atypical pneumonia vs viral pneumonia -She did NOT improve after the 5 days co urse of Tamiflu. -Her CXR at the OSH showed interstitial infiltrated. -on levofloxacin since 05/11 - Afebrile, no leukocytosis Plan: -CXR: edema versus atypical infection, c letty patient not looking like infection or edema -Wean her for O2 as tolerated. -Stop levofloxacin -Blood culture x2: pending Post-menopause 10/21/2011 03/18/2015 Unspecified aftercare 05/26/2011 10/06/2011 Excessive or frequent menstruation 01/05/200710/05 Irregular menstrual cycle 01/05/2007 10/06/2011 Abdominal pain, chronic, right upper quadrant 10/06/2011 Weight gain 10/19/2017 Problem Noted Date Resolved Date Postmenopausal HRT (hormone replacement therapy) 12/13/2015 11/09/2016 Encounter for screening mammogram for malignant neoplasm of 12/12/2015 11/09/2016 breast Delayed emergence from anesthesia 09/27/20142017 On home oxygen therapy 09/27/2014 12/13/2015 Ovarian cyst 09/24/2014 03/18/2015 Marital conflict 08/30/2013 07/11/2014 Adrenal disorder 05/24/2013 07/11/2014 URI (upper respiratory infection) 05/14/20132014 Overview: -cough , fever, headache, nasal congestion and muscle ache started last Wednesday. -sick contact with her son and her joanna r who had the same symptoms. -completed 5 days course of Tamiflu. - not likely bacterial. - Likely viral infection Plan: -viral respiratory panel. -Tylenol PRN. Pneumonia 05/14/2013 07/11/2014 Overview: -Atypical pneumonia vs viral pneumonia -She did NOT improve after the 5 days co urse of Tamiflu. -Her CXR at the OSH showed interstitial infiltrated. -on levofloxacin since 05/11 - Afebrile, no leukocytosis Plan: -CXR: edema versus atypical infection, c linically patient not looking like infection or edema -Wean her for O2 as tolerated. -Stop levofloxacin -Blood culture x2: pending Post-menopause 10/21/2011 03/18/2015 Unspecified aftercare 05/26/2011 10/06/2011 Excessive or frequent menstruation 01/05/200710/05 Irregular menstrual cycle 01/05/2007 10/06/2011 Abdominal pain, chronic, right upper quadrant 10/06/2011 Weight gain 10/19/2017 Problem Noted Date Resolved Date Postmenopausal HRT (hormone replacement therapy) 12/13/2015 11/09/2016 Encounter for screening mammogram for malignant neoplasm of 12/12/2015 11/09/2016 breast Delayed emergence from anesthesia 09/27/20142017 On home oxygen therapy 09/27/2014 12/13/2015 Ovarian cyst 09/24/2014 03/18/2015 Marital conflict 08/30/2013 07/11/2014 Adrenal disorder 05/24/2013 07/11/2014 URI (upper respiratory infection) 05/14/20132014 Overview: -cough , fever, headache, nasal congestion and muscle ache started last Wednesday. -sick contact with her son and her barbarae r who had the same symptoms. -completed 5 days course of Tamiflu. - not likely bacterial. - Likely viral infection Plan: -viral respiratory panel. -Tylenol PRN. Pneumonia 05/14/2013 07/11/2014 Overview: -Atypical pneumonia vs viral pneumonia -She did NOT improve after the 5 days co urse of Tamiflu. -Her CXR at the OSH showed interstitial infiltrated. -on levofloxacin since 05/11 - Afebrile, no leukocytosis Plan: -CXR: edema versus atypical infection, c linically patient not looking like infection or edema -Wean her for O2 as tolerated. -Stop levofloxacin -Blood culture x2: pending Post-menopause 10/21/2011 03/18/2015 Unspecified aftercare 05/26/2011 10/06/2011 Excessive or frequent menstruation 01/05/200710/05 Irregular menstrual cycle 01/05/2007 10/06/2011 Abdominal pain, chronic, right upper quadrant 10/06/2011 Weight gain 10/19/2017 Problem Noted Date Resolved Date Postmenopausal HRT (hormone replacement therapy) 12/13/2015 11/09/2016 Encounter for screening mammogram for malignant neoplasm of 12/12/2015 11/09/2016 breast Delayed emergence from anesthesia 09/27/20142017 On home oxygen therapy 09/27/2014 12/13/2015 Ovarian cyst 09/24/2014 03/18/2015 Marital conflict 08/30/2013 07/11/2014 Adrenal disorder 05/24/2013 07/11/2014 URI (upper respiratory infection) 05/14/20132014 Overview: -cough , fever, headache, nasal congestion and muscle ache started last Wednesday. -sick contact with her son and her barbarae r who had the same symptoms. -completed 5 days course of Tamiflu. - not likely bacterial. - Likely viral infection Plan: -viral respiratory panel. -Tylenol PRN. Pneumonia 05/14/2013 07/11/2014 Overview: -Atypical pneumonia vs viral pneumonia -She did NOT improve after the 5 days co urse of Tamiflu. -Her CXR at the OSH showed interstitial infiltrated. -on levofloxacin since 05/11 - Afebrile, no leukocytosis Plan: -CXR: edema versus atypical infection, c linically patient not looking like infection or edema -Wean her for O2 as tolerated. -Stop levofloxacin -Blood culture x2: pending Post-menopause 10/21/2011 03/18/2015 Unspecified aftercare 05/26/2011 10/06/2011 Excessive or frequent menstruation 01/05/200710/05 Irregular menstrual cycle 01/05/2007 10/06/2011 Abdominal pain, chronic, right upper quadrant 10/06/2011 Weight gain 10/19/2017 Problem Noted Date Resolved Date Postmenopausal HRT (hormone replacement therapy) 12/13/2015 11/09/2016 Encounter for screening mammogram for malignant neoplasm of 12/12/2015 11/09/2016 breast Delayed emergence from anesthesia 09/27/20142017 On home oxygen therapy 09/27/2014 12/13/2015 Ovarian cyst 09/24/2014 03/18/2015 Marital conflict 08/30/2013 07/11/2014 Adrenal disorder 05/24/2013 07/11/2014 URI (upper respiratory infection) 05/14/20132014 Overview: -cough , fever, headache, nasal congestion and muscle ache started last Wednesday. -sick contact with her son and her joanna r who had the same symptoms. -completed 5 days course of Tamiflu. - not likely bacterial. - Likely viral infection Plan: -viral respiratory panel. -Tylenol PRN. Pneumonia 05/14/2013 07/11/2014 Overview: -Atypical pneumonia vs viral pneumonia -She did NOT improve after the 5 days co urse of Tamiflu. -Her CXR at the OSH showed interstitial infiltrated. -on levofloxacin since 05/11 - Afebrile, no leukocytosis Plan: -CXR: edema versus atypical infection, c linically patient not looking like infection or edema -Wean her for O2 as tolerated. -Stop levofloxacin -Blood culture x2: pending Post-menopause 10/21/2011 03/18/2015 Unspecified aftercare 05/26/2011 10/06/2011 Excessive or frequent menstruation 01/05/200710/05 Irregular menstrual cycle 01/05/2007 10/06/2011 Abdominal pain, chronic, right upper quadrant 10/06/2011 Weight gain 10/19/2017 History of Present Illness Antonieta Ceja (Gregorio) - 12/11/2019 8:37 AM EDT LMP 03/10/2010 This Team Access Model visit is a phone encounter. It required patient-provider interaction for the medical decision making as documented below. Could not get ZOOM to open. Patient was offered a virtual/telemedicine appointment in lieu of an office visit due to recommendations to reduce patient exposure to COVID-19. Patient is aware of limitations of performing the visit without a face to face visit in the office setting and agrees. 8:38 AM 53 year old female with c/o swollen all over. 2/4+ pitting but no change in weight, no SOB, cough. Believes r/t to thyroid. Very sensitive to changes. Feels hormones make thyroid drop. Free levels in normal range but TSH mildly elevated from last Seeing Treva in [place]: satisfied with care: thinks low testosterone Seeing Dr. Marissa Ballard: told her not in menopause, PCOS. Warned testosterone will cause stroke. Hormonal labs have all been WNL in 2019. Component Latest Ref Rng & Units 07/21/2019 08/16/2019 09/06/2019 12/04/2019 WBC 3.70 - 11.00 k/uL 11.91 (H) RBC 3.90 - 5.20 m/uL 4.87 Hemoglobin 11.5 - 15.5 g/dL 15.4 Hematocrit 36.0 - 46.0 % 46.8 (H) MCV 80.0 - 100.0 fL 96.1 MCH 26.0 - 34.0 pG 31.6 MCHC 30.5 - 36.0 g/dL 32.9 RDW-CV 11.5 - 15.0 % 12.4 Platelet Count 150 - 400 k/uL 302 MPV 9.0 - 12.7 fL 9.7 Neut% % 58.5 Abs Neut (ANC) 1.45 - 7.50 k/uL 6.96 Lymph% % 30.1 Abs Lymph 1.00 - 4.00 k/uL 3.59 [place]% % 8.5 Abs [place] <0.87 k/uL 1.01 (H) Eosin% % 2.4 Abs Eosin <0.46 k/uL 0.29 Baso% % 0.5 Abs Baso <0.11 k/uL 0.06 Nucleated Reds 0 /100 WBC 0.0 Absolute nRBC <0.01 k/uL <0.01 Diff Type Auto Diff Testosterone 8 - 60 ng/dL 22 23 20 Testosterone Free 0.06 - 0.92 ng/dL 0.22 0.25 0.22 Hemoglobin A1C 4.3 - 5.6 % 6.0 (H) Estimated Average Glucose mg/dL 126 Estradiol 17B pg/mL 46 <25 <25 <25 Estrone pg/mL 25.5 23.7 24.8 18.4 Progesterone ng/mL 0.3 0.4 0.2 Free T3 2.3 - 4.1 pg/mL 2.8 HISTORIES FAMILY HISTORY Problem Relation Age of Onset ? Diabetes Mother Type 2 stroke ? Colon Cancer Father age 64 [place] ? Diabetes Father Type 2 ? Hypertension Father ? Coronary Artery Disease Father Hx of [place] ? Thyroid Sister hx of parathyroid disease/ hx of fibroids ? other (healthy) Brother ? other (healthy) Brother ? Allergies Daughter ? other (healthy) Daughter ? other (healthy) Son ? other (healthy) Son ? other (healthy) Son ? other (healthy) Son ? Colon Cancer Paternal Aunt x5 ? Colon Cancer Paternal Uncle x8 PAST MEDICAL HISTORY Diagnosis Date ? Abdominal pain, chronic, right upper quadrant ? Asthma As a baby, then I outgrew it. ? Cystocele, midline 05/13/2009 ? Delayed emergence from anesthesia 09/27/2014 ? Depression ? Excessive or frequent menstruation Heavy periods ? HSDD 10/21/2011 ? Hypothyroidism should be on FRANCESCO synthroid. ? Irregular menstrual cycle Irregular periods ? menopause age 43 2009 in 2012 FSH 47 ? Moderate dysplasia of cervix 2001 ? Parent-child conflict 03/07/2013 ? PMH - PAST MEDICAL HISTORY OF thyroid ablation/hypothyroid ? Postmenopausal HRT (hormone replacement therapy) 12/13/2015 in 2014 took femHRT cried 11/2015 offer climara/prometrium ? Rectocele 05/13/2009 ? SVT (supraventricular tachycardia) (HCC) ? Syncope 05/14/2013 -Reported that she had one episode of syncope at the OSH. -Had the episode when she stood up. -No urinary incontinence or jerking movements. -Never had syncope episode before. -Last Echo stress test for her chest pain was in 2011 (normal) Plan: -Repeat the Echo: normal - The left ventricle is normal in size. Left ventricular systolic function is normal. EF = 63 ? 5% (2D biplane) - The right ventricle is normal in size. Right ventricular systolic function is normal. - There are no significant valvular abnormalities. - Prior echocardiogram performed on 11/10/11 (stress echo). No significant change. - Tele ? Tobacco use ? Weight gain PAST SURGICAL HISTORY Procedure Laterality Date ? CERVIX UTERI CONIZA LP ELCTRO EXCI 2001 LEEP-Cervix ? COLONOSCOPY 04/2017 says nl ? EGD W/O OR W/BRUSH/WASH 01/22/2014,2009 EGD ? LAPAROSCOPIC CHOLEYCYSTECTOMY 05/19/2011 ? LIGATE FALLOPIAN TUBE 2003 Tubal ligation ? PAST SURGICAL HISTORY OF 1998 tubal ? PAST SURGICAL HISTORY OF 2001 thyroid ablation ? REMOVAL OF OVARY(S) 09/2014 laparoscopic left, CW, umbilical/upper abdominal adhesions seen benign Social History Tobacco Use ? Smoking status: Current Every Day Smoker Packs/day: 0.50 Types: Cigarettes Start date: 1985 ? Smokeless tobacco: Never Used ? Tobacco comment: Has quit intermittently, And I'm working on it now. 1st AM cigarette 10-15 minutes after awake. Most desired is that one, or last of day before bed. Prior 8 month quits, resumed after pregnancies completed. TO Substance Use Topics ? Alcohol use: No Frequency: Never Drinks per session: Patient refused Binge frequency: Never ? Drug use: No ACTIVE PROBLEM LIST Postablative Hypothyroidism hx of low vitamin D Panic Disorder With Agoraphobia Chronic Fatigue Fibromyalgia Syndrome Blood Pressure Elevated Without History of Htn Impaired Glucose Tolerance Svt (Supraventricular Tachycardia) (Hcc) Ptsd (Post-Traumatic Stress Disorder) Attention Deficit Hyperactivity Disorder (Adhd), Combined Type Recurrent Major Depressive Disorder, in Partial Remission (Hcc) menopause age 43 Tobacco Use Gerd Without Esophagitis Simple Chronic Bronchitis (Hcc) Irritable Bowel Syndrome With Diarrhea Systemic Lupus Erythematosus (Hcc) Burning Sensation of Mouth Burning Sensation of Skin Sleep Difficulties Mitral Valve Prolapse Screening for Malignant Neoplasm of The Cervix Visit for Pelvic Exam Encounter for Screening Mammogram for Malignant Neoplasm of Breast Estrogen Deficiency Adrenal Adenoma, Left Current Outpatient Medications Medication Sig Dispense Refill ? SYNTHROID 137 mcg tablet Take 1 tablet by mouth once daily. 30 tablet 5 ? lancets (FREESTYLE LANCETS) 28 gauge misc USE FOUR TIMES DAILY DIRECTED 400 Each 3 ? blood sugar diagnostic (FREESTYLE TEST) test strip TEST four times a day 400 Strip 3 ? Blood-Glucose Meter (FREESTYLE LITE METER) monitoring kit 1 Each as needed. 1 Each 0 ? Blood-Glucose Meter (FREESTYLE LITE METER) monitoring kit 1 Each as needed. 1 Each 0 No current facility-administered medications for this visit. HEPATITIS C SCREENING due on 12/26/1983 HIV SCREENING due on 12/26/1983 TWO PNEUMOVAX 5 YEARS APART PRIOR TO AGE 65(1) due on 1984 ADULT PREVNAR-13 due on 1984 SHINGRIX VACCINE(1 of 2) due on 12/26/2015 EXAM: LMP 03/10/2010 Pleasant adult owman in no acute distress. Alert and oriented all spheres. Normal affect and cognition. Speech normal. No deficits to learning or comprehension. Speaking in full sentences easily. ASSESSMENT/PLAN: 1. Swelling of both lower extremities - ICD9: 729.81, ICD10: M79.89 (primary diagnosis) May be venous stasis 2. 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 Patient very ensitive to changes. Trial mild increase with goal to keep levels 0-2.0 Recheck in 6 weeks. - SYNTHROID 137 MCG TABLET - TSH BLD - T4 FREE/FREE THYROX 3. Elevated hemoglobin (HCC) - ICD9: 282.7, ICD10: D58.2 encouraged to stop smoking again. Doubt small dose testosterone would be critical but could eliminate risk with smoking and then recheck. Antonieta Ceja PA-C Plan: 9:03 AM 25min call See orders and/or patient instructions. Patient ( or Guardian) expressed understanding of instructions on review. Antonieta Ceja PA-C documented in this encounterDebra Rao - 12/18/2019 6:39 PM EDTSleep Study Check-In Documentation Date: December 18, 2019 Name: Jazlyn Garzon Comments: HST was returned in working order with all sleep questionnaires Debra Kushinsky PSS RitaCarmen siu - 12/12/2019 11:26 AM EDTPOLLO #[id number] Date shipped out 12/11 [employer] MAIL OUT TRACKING NUMBER [id number] [employer] RETURN TRACKING NUMBER [id number] signed by Carmen Alice at 12/18/2019 6:39 PM EDT Dalton Valdez III - 12/12/2019 10:01 AM EDT December 12, 2019 Standing PSG Orders signed in the last 90 days None Future PSG Orders signed in the last 90 days None All Prior Sleep Studies (past 365 days) Some values may be hidden. Unless noted otherwise, only the newest values recorded on each date aredisplayed. Sleep Studies HOME SLEEP APNEA TEST (HSAT) Future Expected: Expires: 01/16/20 BMI Readings from Last 2 Encounters: 06/19/19 : 36.76 kg/m? 06/14/19 : 36.95 kg/m? PAST MEDICAL HISTORY Diagnosis Date ? Abdominal pain, chronic, right upper quadrant ? Asthma As a baby, then I outgrew it. ? Cystocele, midline 05/13/2009 ? Delayed emergence from anesthesia 09/27/2014 ? Depression ? Excessive or frequent menstruation Heavy periods ? HSDD 10/21/2011 ? Hypothyroidism should be on FRANCESCO synthroid. ? Irregular menstrual cycle Irregular periods ? menopause age 43 2009 in 2012 FSH 47 ? Moderate dysplasia of cervix 2001 ? Parent-child conflict 03/07/2013 ? PMH - PAST MEDICAL HISTORY OF thyroid ablation/hypothyroid ? Postmenopausal HRT (hormone replacement therapy) 12/13/2015 in 2014 took femHRT cried 11/2015 offer climara/prometrium ? Rectocele 05/13/2009 ? SVT (supraventricular tachycardia) (HCC) ? Syncope 05/14/2013 -Reported that she had one episode of syncope at the OSH. -Had the episode when she stood up. -No urinary incontinence or jerking movements. -Never had syncope episode before. -Last Echo stress test for her chest pain was in 2011 (normal) Plan: -Repeat the Echo: normal - The left ventricle is normal in size. Left ventricular systolic function is normal. EF = 63 ? 5% (2D biplane) - The right ventricle is normal in size. Right ventricular systolic function is normal. - There are no significant valvular abnormalities. - Prior echocardiogram performed on 11/10/11 (stress echo). No significant change. - Tele ? Tobacco use ? Weight gain The medical record was reviewed to determine if the proposed sleep study conforms to the [facility] Practice Parameters for the Indications for Polysomnography and Related Procedures, or if the sleep study is indicated for other reasons. Indications for study: ANDRESSA suspected with comorbid medical or sleep disorders: [id number] pulmonary disease Sleep study to be performed: Home Sleep Apnea Test (HSAT) Special instructions: None-follow laboratory protocol Petey Munguia Poly-T Patient is adamant about having the HSAT and will not complete and in lab sleep test. Best to move forward with the HSAT vs no test at all. I have read the above protocol, edited as needed, and agree to the plan. Dalton Valdez III, PhD 10:30 AM, 12/12/2019 Carmen Duque - 12/12/2019 9:55 AM EDTSpoke with Ben Jasmineon. He stated patient is okay to have HSAT because she only needs it for diagnostic purposes for her physician to have on record. Carmen Duque - 12/12/2019 9:54 AM EDT December 12, 2019 An order has been received for Home Sleep Apnea Test (HSAT) from brittany Rodriguez. [facility] Staff. Visit prep complete. Comments :No The sleep study is scheduled for 12/12. Insurance: Payor: [facility] / Plan: [facility] / Product Type: Medicaid / Payor/Plan Subscr Sex Relation Sub. Ins. ID Effective Group Num 1. NESSA GARZON,JAZLYN M 1965 Female Self [id number] 05/27/16 [facility] [address] Carmen Jenkins documented in this encounterElijahHugo Cristo - 01/04/2020 8:40 AM EDT No chief complaint on file. HPI:This Team Access Model visit is a phone encounter. It required patient- provider interaction for the medical decision making as documented below. Patient was offered a virtual/telemedicine appointment in lieu of an office visit due to recommendations to reduce patient exposure to COVID-19. Patient is aware of limitations of performing the visit without a face to face visit in the office setting and agrees. Complains of sinus congestion. Has had some worsening reflux. Has been sick for three weeks. Not going away. No drainage. No fever or chills. Mild sore throat intermittently due to reflux. No changes in smell or taste. Has discomfort behind left eye and forehead. Has mild headache. Has some cough. No shortness of breath. No myalgias. MEDICATIONS: Current Outpatient Medications Medication Sig ? SYNTHROID 137 mcg tablet Take by mouth 8 tabs daily / weekly ? lancets (FREESTYLE LANCETS) 28 gauge misc USE FOUR TIMES DAILY DIRECTED ? blood sugar diagnostic (FREESTYLE TEST) test strip TEST four times a day ? Blood-Glucose Meter (FREESTYLE LITE METER) monitoring kit 1 Each as needed. ? Blood-Glucose Meter (FREESTYLE LITE METER) monitoring kit 1 Each as needed. No current facility-administered medications for this visit. ALLERGIES: ALLERGIES Allergen Reactions ? Codeine GI Upset, Vomiting ? Percocet [Oxycodone* Vomiting ? Solumedrol [Methylp* Mental Status Change Made her rageful ? Vicodin [Hydrocodon* Vomiting ? Combipatch [Estradi* Intolerance feels wired, muscles hurt, lips/mouth burn, feels like asthma flaring, nausea, dizziness. ? Metformin Other: See Comments Myalgias. ? Pepcid [Famotidine * Other: See Comments Dry eyes, mouth, rash, itching, anxiety ? Tapazole [Methimazo* Hives PAST MEDICAL HISTORY Diagnosis Date ? Abdominal pain, chronic, right upper quadrant ? Asthma As a baby, then I outgrew it. ? Cystocele, midline 05/13/2009 ? Delayed emergence from anesthesia 09/27/2014 ? Depression ? Excessive or frequent menstruation Heavy periods ? HSDD 10/21/2011 ? Hypothyroidism should be on FRANCESCO synthroid. ? Irregular menstrual cycle Irregular periods ? menopause age 43 2009 in 2013 FSH 47 ? Moderate dysplasia of cervix 2002 ? Parent-child conflict 03/07/2013 ? PMH - PAST MEDICAL HISTORY OF thyroid ablation/hypothyroid ? Postmenopausal HRT (hormone replacement therapy) 12/13/2015 in 2014 took femHRT cried 11/2015 offer climara/prometrium ? Rectocele 05/13/2009 ? SVT (supraventricular tachycardia) ([facility]) ? Syncope 05/14/2013 -Reported that she had one episode of syncope at the OSH. -Had the episode when she stood up. -No urinary incontinence or jerking movements. -Never had syncope episode before. -Last Echo stress test for her chest pain was in 2011 (normal) Plan: -Repeat the Echo: normal - The left ventricle is normal in size. Left ventricular systolic function is normal. EF = 63 ? 5% (2D biplane) - The right ventricle is normal in size. Right ventricular systolic function is normal. - There are no significant valvular abnormalities. - Prior echocardiogram performed on 11/10/11 (stress echo). No significant change. - Tele ? Tobacco use ? Weight gain PAST SURGICAL HISTORY Procedure Laterality Date ? CERVIX UTERI CONIZA LP ELCTRO EXCI 2002 LEEP-Cervix ? COLONOSCOPY 04/2017 says nl ? EGD W/O OR W/BRUSH/WASH 01/22/2014,2009 EGD ? LAPAROSCOPIC CHOLEYCYSTECTOMY 05/19/2011 ? LIGATE FALLOPIAN TUBE 2004 Tubal ligation ? PAST SURGICAL HISTORY OF 1998 tubal ? PAST SURGICAL HISTORY OF 2001 thyroid ablation ? REMOVAL OF OVARY(S) 09/2014 laparoscopic left, CW, umbilical/upper abdominal adhesions seen benign FAMILY HISTORY Problem Relation Age of Onset ? Diabetes Mother Type 2 stroke ? Colon Cancer Father age 64 [place] ? Diabetes Father Type 2 ? Hypertension Father ? Coronary Artery Disease Father Hx of [place] ? Thyroid Sister hx of parathyroid disease/ hx of fibroids ? other (healthy) Brother ? other (healthy) Brother ? Allergies Daughter ? other (healthy) Daughter ? other (healthy) Son ? other (healthy) Son ? other (healthy) Son ? other (healthy) Son ? Colon Cancer Paternal Aunt x5 ? Colon Cancer Paternal Uncle x8 Social History Tobacco Use ? Smoking status: Current Every Day Smoker Packs/day: 0.50 Types: Cigarettes Start date: 1985 ? Smokeless tobacco: Never Used ? Tobacco comment: Has quit intermittently, And I'm working on it now. 1st AM cigarette 10-15 minutes after awake. Most desired is that one, or last of day before bed. Prior 8 month quits, resumed after pregnancies completed. TO Substance Use Topics ? Alcohol use: No Frequency: Never Drinks per session: Patient refused Binge frequency: Never ? Drug use: No Reviewed current medications, allergies, past medical history, surgical history, family history and social history today. REVIEW OF SYSTEMS All other reviewed and negative other than HPI. VITALS: LMP 03/10/2010 Last 4 Encounter Wt Readings: Date: Wt: 06/19/2019 91.2 kg (201 lb) 06/14/2019 91.6 kg (202 lb) 05/24/2019 90.3 kg (199 lb) 05/12/2019 89.8 kg (198 lb) PHYSICAL EXAMINATION: Patient is alert and oriented during visit. Answers appropriately. Breathing comfortably. Audible cough. ASSESSMENT/PLAN: 1. Bacterial sinusitis - ICD9: 473.9, 041.9, ICD10: J32.9, B96.89 - Discussed risks and benefits of new medication with the patient. Advised them to call if any side effects or questions. Red flags for re-assessment reviewed with patient in detail. Call if symptoms worsen at all or if not better in one to two weeks Reviewed diagnosis and treatment options in detail. Questions were answered. Patient expressed understanding of treatment plan. - declines covid testing. - AMOXICILLIN 875 MG-POTASSIUM CLAVULANATE 125 MG TABLET Hugo Nava MD RTO prn. I spent 18 minutes in the visit, with more than 50% of the total [id number] time of the visit in counseling / coordination of care. documented in this encounterHugo Nava - 02/01/2020 10:57 AM EDT No chief complaint on file. HPI:This Team Access Model visit is a virtual encounter. It required patient- provider interaction for the medical decision making as documented below. Patient was offered a virtual/telemedicine appointment in lieu of an office visit due to recommendations to reduce patient exposure to COVID-19. Patient is aware of limitations of performing the visit without a face to face visit in the office setting and agrees. See my last routine ov in October: ? She was to stop self administering hormones and then actually try the lexapro. She is not taking thelexapro. She is on a compounded hormone prescription per Dr. Bennett and is feeling the best she has in four years. She is pleased with how she is feeling Dizziness is better. No side effects. They are not talking about following her endometrium. Both Jazlyn and I are concerned enough about it to follow it. Little reflux No burning skin or burning mouth. She recently saw endo. They are going to follow. She does not feel her symptoms are endo related. Also had a sleep study that recommended cpap titration however apparently it was not bad enough to meet criteria Even though sleep medicine recommended it. They recommended seeing sleep medicine. She spoke with sleep medicine. He stated he does not think the sleep apnea is bad enough to contribute to her hypoxia. They recommended cardiology and pulmonary see her for evaluation. Has seen both inthe past. She has an appt to sleep med set up. She still has occasional edema. She wakes up with it. It goes down during the day. She is sleeping with her head completely elevated. She does have reflux that cannot be treated with meds due to intolerances. She has not wanted to pursue seeing someone to treat her surgically. She is not doing her hormones per Dr. Bennett's office She is supposed to go back to them for follow up. They have not ordered follow ups on her uterus andovary. She feels everything is hormone related. Discussed having her see Dr. Bennett himself. She did not tolerate testosterone. She did feel better. Her family felt she was aggressive while on it. When she is initially on hormones, she feels fine. She admits to her depression is horrible. She has not started the lexapro. She does not want to try other psych meds. Admits to racing thoughts etc. No suicidal ideation. Her most recent TSH was stable. MEDICATIONS: Current Outpatient Medications Medication Sig ? SYNTHROID 137 mcg tablet Take by mouth 8 tabs daily / weekly ? lancets (FREESTYLE LANCETS) 28 gauge misc USE FOUR TIMES DAILY DIRECTED ? blood sugar diagnostic (FREESTYLE TEST) test strip TEST four times a day ? Blood-Glucose Meter (FREESTYLE LITE METER) monitoring kit 1 Each as needed. ? Blood-Glucose Meter (FREESTYLE LITE METER) monitoring kit 1 Each as needed. No current facility-administered medications for this visit. ALLERGIES: ALLERGIES Allergen Reactions ? Codeine GI Upset, Vomiting ? Percocet [Oxycodone* Vomiting ? Solumedrol [Methylp* Mental Status Change Made her rageful ? Vicodin [Hydrocodon* Vomiting ? Combipatch [Estradi* Intolerance feels wired, muscles hurt, lips/mouth burn, feels like asthma flaring, nausea, dizziness. ? Metformin Other: See Comments Myalgias. ? Pepcid [Famotidine * Other: See Comments Dry eyes, mouth, rash, itching, anxiety ? Tapazole [Methimazo* Hives PAST MEDICAL HISTORY Diagnosis Date ? Abdominal pain, chronic, right upper quadrant ? Asthma As a baby, then I outgrew it. ? Cystocele, midline 05/13/2009 ? Delayed emergence from anesthesia 09/27/2014 ? Depression ? Excessive or frequent menstruation Heavy periods ? HSDD 10/21/2011 ? Hypothyroidism should be on FRANCESCO synthroid. ? Irregular menstrual cycle Irregular periods ? menopause age 43 2009 in 2012 FSH 47 ? Moderate dysplasia of cervix 2002 ? Parent-child conflict 03/07/2013 ? PMH - PAST MEDICAL HISTORY OF thyroid ablation/hypothyroid ? Postmenopausal HRT (hormone replacement therapy) 12/13/2015 in 2014 took femHRT cried 11/2015 offer climara/prometrium ? Rectocele 05/13/2009 ? SVT (supraventricular tachycardia) (HCC) ? Syncope 05/14/2013 -Reported that she had one episode of syncope at the OSH. -Had the episode when she stood up. -No urinary incontinence or jerking movements. -Never had syncope episode before. -Last Echo stress test for her chest pain was in 2011 (normal) Plan: -Repeat the Echo: normal - The left ventricle is normal in size. Left ventricular systolic function is normal. EF = 63 ? 5% (2D biplane) - The right ventricle is normal in size. Right ventricular systolic function is normal. - There are no significant valvular abnormalities. - Prior echocardiogram performed on 11/10/11 (stress echo). No significant change. - Tele ? Tobacco use ? Weight gain PAST SURGICAL HISTORY Procedure Laterality Date ? CERVIX UTERI CONIZA LP ELCTRO EXCI 2001 LEEP-Cervix ? COLONOSCOPY 04/2017 says nl ? EGD W/O OR W/BRUSH/WASH 01/22/2014,2009 EGD ? LAPAROSCOPIC CHOLEYCYSTECTOMY 05/19/2011 ? LIGATE FALLOPIAN TUBE 2003 Tubal ligation ? PAST SURGICAL HISTORY OF 1998 tubal ? PAST SURGICAL HISTORY OF 2001 thyroid ablation ? REMOVAL OF OVARY(S) 09/2014 laparoscopic left, CW, umbilical/upper abdominal adhesions seen benign FAMILY HISTORY Problem Relation Age of Onset ? Diabetes Mother Type 2 stroke ? Colon Cancer Father age 64 [place] ? Diabetes Father Type 2 ? Hypertension Father ? Coronary Artery Disease Father Hx of [place] ? Thyroid Sister hx of parathyroid disease/ hx of fibroids ? other (healthy) Brother ? other (healthy) Brother ? Allergies Daughter ? other (healthy) Daughter ? other (healthy) Son ? other (healthy) Son ? other (healthy) Son ? other (healthy) Son ? Colon Cancer Paternal Aunt x5 ? Colon Cancer Paternal Uncle x8 Social History Tobacco Use ? Smoking status: Current Every Day Smoker Packs/day: 0.50 Types: Cigarettes Start date: 1985 ? Smokeless tobacco: Never Used ? Tobacco comment: Has quit intermittently, And I'm working on it now. 1st AM cigarette 10-15 minutes after awake. Most desired is that one, or last of day before bed. Prior 8 month quits, resumed after pregnancies completed. TO Substance Use Topics ? Alcohol use: No Frequency: Never Drinks per session: Patient refused Binge frequency: Never ? Drug use: No Reviewed current medications, allergies, past medical history, surgical history, family history and social history today. REVIEW OF SYSTEMS All other reviewed and negative other than HPI. HEALTH MAINTENANCE: Discussed covid 19 safety and recommendations if patient should become ill. VITALS: LMP 03/10/2010 Last 4 Encounter Wt Readings: Date: Wt: 06/19/2019 91.2 kg (201 lb) 06/14/2019 91.6 kg (202 lb) 05/24/2019 90.3 kg (199 lb) 05/12/2019 89.8 kg (198 lb) PHYSICAL EXAMINATION: Patient is alert and oriented during visit. Answers appropriately. No pallor. Breathing comfortably. PSYCH:Affect normal. Normal speech. Normal eye contact ASSESSMENT/PLAN: 1. Hypoxia - ICD9: 799.02, ICD10: R09.02 (primary diagnosis) - since sleep med does not think her nocturnal hypoxia is caused by sleep apnea. Have cardiology andpulmonary assess. Has had such extensive testing already, would defer evaluation to them. - CONSULT TO PULM/CRITICAL CARE - CONSULT TO CARDIOLOGY 2. ANDRESSA (obstructive sleep apnea) - ICD9: 327.23, ICD10: G47.33 - since sleep med has felt she would benefit, see if we can get autopap covered. - CPAP 3. Depression, unspecified depression type - ICD9: 311, ICD10: F32.9 - she promises will try lexapro. Encouraged to continue. 4. Impaired glucose tolerance - ICD9: 790.22, ICD10: R73.02 - follow up with endo 5. Attention deficit hyperactivity disorder (ADHD), combined type - ICD9: 314.01, ICD10: F90.2 - as above. Hugo Nava MD RTO in six weeks and prn. documented in this encounterRicardarosalino Richa Blair - 02/05/2020 2:00 PM EDT [facility] Cardiology ([facility]) [address] [facility] [id number] OUTPATIENT VISIT DATE 02/04/2020 PRIMARY CARE PHYSICIAN: Hugo Nava MD [id number] [place] [address] REFERRING PHYSICIAN: Hugo Nava MD [id number] [facility] [id number] CHIEF COMPLAINT: Inappropriate sinus tachycardia and chest pain HISTORY OF PRESENT ILLNESS: Ms. Garzon is a 54 year old woman who has had a long-standing history of labile tachycardia. He tellsme all her symptoms started after a dose part of hemorrhage when she was 19 years old. After that time she started developing increased heart rates. She describes a feeling of palpitations and racing heart that had occur intermittently. Is not necessarily associated with anxiety. Feels sicker heart rate increases and then she becomes anxious. She's undergone multiple Holter monitors stress test and echocardiogram. She's been evaluated over many years. I reviewed most of her notes were available in the system. She's also been evaluated outside facilities. She describes a feeling of squeezing like her muscles are tight all over her body which happens intermittently. It is not know so we associated with exertion. When she has a feelings she's testers self by running up her stairs. She gets out of breath but has no worsening feelings of chest tightness. There seemed to be no exacerbating relieving factors when she has increased heart rate. However, she does note that her heart rates are better and she feels better when she's on hormone replacement therapy. However, she has side effects secondary to hormone replacement therapy. She has not had symptoms consistent with CHF including PND, orthopnea,or lower extremity edema. Risk factors for coronary artery disease Family history: Patient's father had his first [place] at age 50. He had stents at age 60 and at age64 from a myocardial infarction. Ongoing smoking of one pack per day for 22 years Obesity Post menopausal PAST MEDICAL HISTORY Diagnosis Date ? Abdominal pain, chronic, right upper quadrant ? Asthma As a baby, then I outgrew it. ? Cystocele, midline 05/13/2009 ? Delayed emergence from anesthesia 09/27/2014 ? Depression ? Excessive or frequent menstruation Heavy periods ? HSDD 10/21/2011 ? Hypothyroidism should be on FRANCESCO synthroid. ? Irregular menstrual cycle Irregular periods ? menopause age 43 2009 in 2012 FSH 47 ? Moderate dysplasia of cervix 2001 ? Parent-child conflict 03/07/2013 ? PMH - PAST MEDICAL HISTORY OF thyroid ablation/hypothyroid ? Postmenopausal HRT (hormone replacement therapy) 12/13/2015 in 2014 took femHRT cried 11/2015 offer climara/prometrium ? Rectocele 05/13/2009 ? SVT (supraventricular tachycardia) ([facility]) ? Syncope 05/14/2013 -Reported that she had one episode of syncope at the OSH. -Had the episode when she stood up. -No urinary incontinence or jerking movements. -Never had syncope episode before. -Last Echo stress test for her chest pain was in 2011 (normal) Plan: -Repeat the Echo: normal - The left ventricle is normal in size. Left ventricular systolic function is normal. EF = 63 ? 5% (2D biplane) - The right ventricle is normal in size. Right ventricular systolic function is normal. - There are no significant valvular abnormalities. - Prior echocardiogram performed on 11/10/11 (stress echo). No significant change. - Tele ? Tobacco use ? Weight gain PAST SURGICAL HISTORY Procedure Laterality Date ? CERVIX UTERI CONIZA LP ELCTRO EXCI 2001 LEEP-Cervix ? COLONOSCOPY 04/2017 says nl ? EGD W/O OR W/BRUSH/WASH 01/22/2014,2009 EGD ? LAPAROSCOPIC CHOLEYCYSTECTOMY 05/19/2011 ? LIGATE FALLOPIAN TUBE 2003 Tubal ligation ? PAST SURGICAL HISTORY OF 1998 tubal ? PAST SURGICAL HISTORY OF 2001 thyroid ablation ? REMOVAL OF OVARY(S) 09/2014 laparoscopic left, CW, umbilical/upper abdominal adhesions seen benign SOCIAL HISTORY Social History Tobacco Use ? Smoking status: Current Every Day Smoker Packs/day: 0.50 Types: Cigarettes Start date: 1985 ? Smokeless tobacco: Never Used ? Tobacco comment: Has quit intermittently, And I'm working on it now. 1st AM cigarette 10-15 minutes after awake. Most desired is that one, or last of day before bed. Prior 8 month quits, resumed after pregnancies completed. TO Substance Use Topics ? Alcohol use: No Frequency: Never Drinks per session: Patient refused Binge frequency: Never ? Drug use: No FAMILY HISTORY Problem Relation Age of Onset ? Diabetes Mother Type 2 stroke ? Colon Cancer Father age 64 [place] ? Diabetes Father Type 2 ? Hypertension Father ? Coronary Artery Disease Father Hx of [place] ? Thyroid Sister hx of parathyroid disease/ hx of fibroids ? other (healthy) Brother ? other (healthy) Brother ? Allergies Daughter ? other (healthy) Daughter ? other (healthy) Son ? other (healthy) Son ? other (healthy) Son ? other (healthy) Son ? Colon Cancer Paternal Aunt x5 ? Colon Cancer Paternal Uncle x8 ALLERGIES: ALLERGIES Allergen Reactions ? Codeine GI Upset, Vomiting ? Percocet [Oxycodone* Vomiting ? Solumedrol [Methylp* Mental Status Change Made her rageful ? Vicodin [Hydrocodon* Vomiting ? Combipatch [Estradi* Intolerance feels wired, muscles hurt, lips/mouth burn, feels like asthma flaring, nausea, dizziness. ? Metformin Other: See Comments Myalgias. ? Pepcid [Famotidine * Other: See Comments Dry eyes, mouth, rash, itching, anxiety ? Tapazole [Methimazo* Hives MEDICATIONS: CPAP Initiate Auto PAP @ 5-20 cm of water with humidification. Mask (per patient preference) optional chin strap (if indicated) , filters, tubing, humidifier and lifetime supplies. SYNTHROID 137 mcg tablet Take by mouth 8 tabs daily / weekly lancets (FREESTYLE LANCETS) 28 gauge misc USE FOUR TIMES DAILY DIRECTED blood sugar diagnostic (FREESTYLE TEST) test strip TEST four times a day Blood-Glucose Meter (FREESTYLE LITE METER) monitoring kit 1 Each as needed. Blood-Glucose Meter (FREESTYLE LITE METER) monitoring kit 1 Each as needed. REVIEW OF SYSTEMS: Review of Systems Constitutional: Positive for malaise/fatigue. Negative for chills, fever and weight loss. HENT: Negative for hearing loss and sore throat. Eyes: Negative for blurred vision and double vision. Respiratory: Positive for shortness of breath. Negative for cough, hemoptysis, sputum production andwheezing. Cardiovascular: Positive for chest pain, palpitations and leg swelling. Negative for orthopnea, claudication and PND. Gastrointestinal: Positive for heartburn. Negative for abdominal pain, blood in stool, constipation,diarrhea, melena, nausea and vomiting. Genitourinary: Negative for dysuria, frequency, hematuria and urgency. Musculoskeletal: Negative. Skin: Negative. Neurological: Negative for dizziness, seizures, loss of consciousness, weakness and headaches. Endo/Heme/Allergies: Negative for environmental allergies. Does not bruise/bleed easily. Psychiatric/Behavioral: Negative for depression. PHYSICAL EXAMINATION: BP 142/84 Pulse 100 Resp 16 Wt 91.6 kg (202 lb) LMP 03/10/2010 BMI 36.95 kg/m? Physical Exam Constitutional: She is oriented to person, place, and time and well-developed, well-nourished, and in no distress. HENT: Head: Normocephalic and atraumatic. Eyes: Conjunctivae and EOM are normal. Right eye exhibits no discharge. Left eye exhibits no discharge. No scleral icterus. Neck: Normal range of motion. Neck supple. No JVD present. No thyromegaly present. Cardiovascular: Normal rate, regular rhythm, S1 normal, S2 normal, intact distal pulses and normal pulses. Exam reveals no gallop and no distant heart sounds. No murmur heard. Pulmonary/Chest: Effort normal and breath sounds normal. She has no wheezes. She has no rales. Abdominal: Soft. Normal appearance, normal aorta and bowel sounds are normal. She exhibits no distension. There is no abdominal tenderness. Musculoskeletal: Normal range of motion. General: No tenderness or edema. Lymphadenopathy: She has no cervical adenopathy. Neurological: She is alert and oriented to person, place, and time. Skin: Skin is warm and dry. No rash noted. She is not diaphoretic. No erythema. Psychiatric: Affect normal. Nursing note and vitals reviewed. CARDIOVASCULAR MEDICINE TESTING: Stress Echocardiogram 11/09/18: CONCLUSIONS: - Exam indication: Dizziness - The exercise stress echo was negative for ischemia at 98 % of MPHR (4.6 METS). - The left ventricle is normal in size.?Left ventricular systolic function is normal. EF = 69 ? 5% (2D biplane) Normal left ventricular diastolic function. - The right ventricle is normal in size. Right ventricular systolic function is normal. - Exam was compared with the prior OUTSIDE echocardiographic exam performed on 02/15/18. Event monitor 10/20/2018 11 days Patient had a min HR of 53 bpm, max HR of 161 bpm, and avg HR of 90 bpm. Predominant underlying rhythm was Sinus Rhythm. Isolated SVEs were rare (<1.0%), SVE Couplets were rare (<1.0%), and SVE Triplets were rare (<1.0%). Isolated VEs were rare (<1.0%), and no VE Couplets or VE Triplets were present. ? Patient triggered events / symptom notations correlated with sinus, sinus tachycardia, infrequent SVEs IMPRESSION: Ms. Garzon is a 54 year old woman with a history of palpitations and sinus tachycardia of unclear etiology. I reviewed all her office notes and multiple tests that have been performed over the years. Had a recent admission to [facility] emergency room on that hospital admission, she describes severe chest pressure and palpitations. A CT scan was negative for pulmonary embolus and cardiac enzymesare completely negative. Is highly unlikely that she has a cardiac cause for her symptoms. I suspecther tachycardia is likely secondary to another primary problem. I discussed this with her in detail. PLAN AND RECOMMENDATIONS: SVT (supraventricular tachycardia) (HCC) - ICD9: 427.89, ICD10: I47.1 Sinus tachycardia of unclear etiology and likely secondary to another primary cause. Less likely postural orthostatic tachycardic syndrome, or primary arrhythmia such as AVRT or AVNRT. I'm reluctant tostart the patient on beta lelia therapy given that L believe that this is a primary cardiac cause for her symptoms. In addition, I discussed the side effects of beta lelia therapy with her in detail. She's concerned about the possible fatigue. 4. Tobacco use - ICD9: 305.1, ICD10: Z72.0 - Cessation encouraged. - Physiologic and physical aspects of tobacco addiction as well as strategies for quitting were discussed. - Counseling was given focusing on the harmful effects of this addiction especially given the patient's medical condition(s) which will be worsened because of the chemicals in tobacco. 5. Other chest pain - ICD9: 786.59, ICD10: R07.89 - Atypical chest pain without evidence of acute coronary syndrome or significant ischemia based on multiple risks ratification at a bend completed over the years. Highly unlikely that she would have intense symptoms with negative cardiac workup by multiple emergency room visits however, based on her risk factors which include a very strong family history of premature coronary disease and ongoing smoking may need to consider invasive testing. I discussed this with the patient in detail. She is currently trying to stop smoking. I told her and see her back in 3 months for repeat evaluation. Richa Rubin MD documented in this encounterMarlin Mohamud - 02/05/2020 5:04 PM EDTThis is an Express Care eVisit note for Jazlyn Garzon eVisit/Questionnaire reviewed The chief complaint for the visit - Patient presents with: Eye Problem Recommendations/Treatment plan - See My Chart Message to patient Total time spent: < 5 minutes. Marlin Mohamud APRN.PULLEY MAN documented in this encounter Assessments Diagnosis Swelling of both lower extremities - Shagufta brown Postablative hypothyroidism Other postablative hypothyroidism Elevated hemoglobin (HCC) Other hemoglobinopathies Diagnosis Bacterial sinusitis - Primary Unspecified sinusitis (chronic) Diagnosis ANDRESSA (obstructive sleep apnea) Obstructive sleep apnea (adult) (pediatr ic) Diagnosis Hypoxia - Primary Hypoxemia ANDRESSA (obstructive sleep apnea) Obstructive sleep apnea (adult) (pediatr ic) Depression, unspecified depression type Impaired glucose tolerance Impaired glucose tolerance test Attention deficit hyperactivity disorder (ADHD), combined type Diagnosis Mitral valve prolapse - Primary Mitral valve disorders SVT (supraventricular tachycardia) (HCC) Other specified cardiac dysrhythmias Hypoxia Hypoxemia Tobacco use Tobacco use disorder Other chest pain Diagnosis Treatment not available - Primary Procedure not carried out for other reas ons Reason for Referral Status Reason Specialty Diagnoses / Referred By Referred To Procedures Contact Contact Authorized PCP Requested Cardiology Diagnoses Hypoxia Hugo Nava Referral Procedures CONSULT TO CARDIOLOGY NEW PATIENT VISIT LEVEL [address] [place] [address] Status Reason Specialty Diagnoses / Referred By Referred To Procedures Contact Contact Authorized PCP Requested Pulmonary and Diagnoses Hypoxia Hugo Nava Referral Critical Care Procedures CONSULT TO PULM/CRITICAL CARE NEW PATIENT VISIT LEVEL [address] [place] [address] Additional Source Comments FOR RECORDS PERTAINING TO PATIENTS WHO ARE OR HAVE BEEN ENROLLED IN A CHEMICAL DEPENDENCY/SUBSTANCE ABUSE PROGRAM, SOME INFORMATION MAY BE OMITTED. This clinical summary was aggregated from multiple sources. Caution should be exercised in using it in the provision of clinical care. This summary normalizes information from multiple sources, and as a consequence, information in this document may materially changethe coding, format and clinical context of patient data. In addition, data may be omittedin some cases. CLINICAL DECISIONS SHOULD BE BASED ON THE PRIMARY CLINICAL RECORDS. [facility] provides no warranty or guarantee of the accuracy or completeness of information in this document. UNRECOGNIZED CONTENT PROVIDED BELOW FOR UNRECOGNIZED SECTION INFORMATION SOURCE DATE CREATED AUTHOR AUTHOR'S ORGANIZATIO N 10/12/2017 [facility] DATE CREATED AUTHOR AUTHOR'S ORGANIZATIO N 2017 [facility] DATE CREATED AUTHOR AUTHOR'S ORGANIZATIO N 06/15/2018 [facility] DATE CREATED AUTHOR AUTHOR'S ORGANIZATIO N 06/28/2018 [facility] DATE CREATED AUTHOR AUTHOR'S ORGANIZATIO N 12/07/2018 [facility] DATE CREATED AUTHOR AUTHOR'S ORGANIZATIO N 12/10/[address] [facility] DATE CREATED AUTHOR AUTHOR'S ORGANIZATIO N 05/03/2019 [facility] DATE CREATED AUTHOR AUTHOR'S ORGANIZATIO N 02/06/2020 [facility] UNRECOGNIZED CONTENT PROVIDED BELOW FOR UNRECOGNIZED SECTION Source Comments In the event this information is protected by the Federal Confidentiality of Alcohol and Drug Abuse Patient Records regulations: The Federal rules restrict any use of the information to criminally investigate or prosecute any alcohol or drug abuse patient.[facility] System[facility] the event this information is protected by the Federal Confidentiality of Alcohol and Drug Abuse Patient Records regulations: The Federal rules restrict any use of the information to criminally investigate or prosecute any alcohol or drug abuse patient.[facility] SystemIn the event this information is protected by the Federal Confidentiality of Alcohol and Drug Abuse Patient Records regulations: The Federal rules restrict any use of the information to criminally investigate or prosecute any alcohol or drug abuse patient.[facility] SystemIn the event this information is protected by the Federal Confidentiality of Alcohol and Drug Abuse Patient Records regulations: The Federal rules restrict any use of the information to criminally investigate or prosecute any alcohol or drug abuse patient.[facility] SystemIn the event this information is protected by the Federal Confidentiality of Alcohol and Drug Abuse Patient Records regulations: The Federal rules restrict any use of the information to criminally investigate or prosecute any alcohol or drug abuse patient.[facility] SystemIn the event this information is protected by the Federal Confidentiality of Alcohol and Drug Abuse Patient Records regulations: The Federal rules restrict any use of the information to criminally investigate or prosecute any alcohol or drug abuse patient.[facility] SystemIn the event this information is protected by the Federal Confidentiality of Alcohol and Drug Abuse Patient Records regulations: The Federal rules restrict any use of the information to criminally investigate or prosecute any alcohol or drug abuse patient.[facility] SystemIn the event this information is protected by the Federal Confidentiality of Alcohol and Drug Abuse Patient Records regulations: The Federal rules restrict any use of the information to criminally investigate or prosecute any alcohol or drug abuse patient.[facility] SystemIn the event this information is protected by the Federal Confidentiality of Alcohol and Drug Abuse Patient Records regulations: The Federal rules restrict any use of the information to criminally investigate or prosecute any alcohol or drug abuse patient.[facility] SystemIn the event this information is protected by the Federal Confidentiality of Alcohol and Drug Abuse Patient Records regulations: The Federal rules restrict any use of the information to criminally investigate or prosecute any alcohol or drug abuse patient.[facility] SystemIn the event this information is protected by the Federal Confidentiality of Alcohol and Drug Abuse Patient Records regulations: The Federal rules restrict any use of the information to criminally investigate or prosecute any alcohol or drug abuse patient.[facility] SystemIn the event this information is protected by the Federal Confidentiality of Alcohol and Drug Abuse Patient Records regulations: The Federal rules restrict any use of the information to criminally investigate or prosecute any alcohol or drug abuse patient.[facility] SystemIn the event this information is protected by the Federal Confidentiality of Alcohol and Drug Abuse Patient Records regulations: The Federal rules restrict any use of the information to criminally investigate or prosecute any alcohol or drug abuse patient.[facility] UNRECOGNIZED CONTENT PROVIDED BELOW FOR UNRECOGNIZED SECTION Reason for Visit Reason Comments Telemedicine Reason Comments HSAT Check In (Adult) Reason Onset Date Comments results home sleep study 2019 Reason Comments Acute Visit Reason Onset Date Comments needs notes supporting sleep study order 01/11/2020 Reason Comments Refill Request Reason Comments Results - Sleep Study Reason Comments Follow Up Reason Comments new patient Status Reason Specialty Diagnoses / Referred By Referred To Procedures Contact Contact Closed PCP Requested Cardiology Diagnoses Hypoxia Hugo Nava Referral Procedures CONSULT TO CARDIOLOGY NEW PATIENT VISIT LEVEL [address] [place], [place] [address] Reason Comments Eye Problem UNRECOGNIZED CONTENT PROVIDED BELOW FOR UNRECOGNIZED SECTION Nursing Notes Sandra Hackett LPN - 12/11/2019 8:40 AM EDTAttempted to reach patient to complete visit prep but no answer and a message was left. documented in this encounter UNRECOGNIZED CONTENT PROVIDED BELOW FOR UNRECOGNIZED SECTION Miscellaneous Notes Telephone Encounter - Sudha Pink LPN - 2019 11:27 AM EDTPatient notified. Telephone Encounter - Hugo Nava - 2019 9:40 AM EDTThose take several weeks. Does not look like it is back yet. elephone Encounter - Yue Vital LPN - 2019 9:38 AM EDTPt calling for home sleep study results. Yue Vital LPN documented in this encounterTelephone Encounter - Sandra Hackett LPN - 01/11/2020 5:16 PM EDTFound the original office visit when sleep study first ordered and some other documentation of most recent sleep study. All faxed to [facility] Sleep lab. elephone Encounter - Antonieta Ceja) - 01/11/2020 4:21 PM EDTPlease copy 12/27/19 Dr. Nava message and send. Too many notes and messages to go through. Can you find date of original test orders? Thanks, Cesar Ceja PA-C b Telephone Encounter - Darlene Donato LPN - 01/11/2020 8:18 AM Jatinder from [facility] Sleep Lab calling patient is scheduled for sleep study 01/15/2020 and has no office notes supporting why sleep study is needed. Michelle is asking for face to face prior to sleep study please. Please advise documented in this encounterTelephone Encounter - Senia Souza - 01/17/2020 10:07 AM EDTCalled patient and scheduled Virtual 01/30/2020 elephone Encounter - Mague Ivory Ma - 01/04/2020 8:16 AM EDTPlease help patient schedule a follow up thank you. Patient is seen in [place], I do not have the [place] schedulers pool. Mague Ivory Ma elephone Encounter - Ha Ortiz - 01/02/2020 8:59 AM EDTShe has prediabetes accrording to the last note and hence does not need to check 4 tiems a day - in fact prediabetics are not asked to check blood sugars at all. Transfer her to the schedulers to make a follow up with me virtually is fine Ha Ortiz MD elephone Encounter - Mague Ivory Ma - 01/02/2020 8:54 AM EDT Rx last filled on 11/01/2018 ANCELMO: 06/26/2019 Please review pended order, thank you. Pending Prescriptions Disp Refills FREESTYLE TEST STRIPS 400 Strip 3 Sig: TEST four times a day FRANCESCO: No Mague Ivory Ma documented in this encounterTelephone Encounter - Sudha Pink LPN - 01/25/2020 12:39 PM EDTFaxed order and referral entered. elephone Encounter - Hugo Nava - 01/24/2020 12:55 PM EDTIt does show sleep apnea. They are recommending in house cpap titration. Please set up documented in this encounterTelephone Encounter - Sudha Pink LPN - 01/29/2020 1:34 PM EDTMyChart message sent to patient. elephone Encounter - Hugo Nava - 01/29/2020 12:46 PM EDTLet her know [facility] contacted us. Even the the doctor reading it felt she should be treated with cpap, her insurance if refusing to cover at her level. We could have her see a sleep doc if she is willing. documented in this encounterTelephone Encounter - Hugo Nava - 01/31/2020 8:10 AM EDT noted documented in this encounter
--- OUTSIDE RECORDS SUMMARY | 2020-02-06 12:32 | XMS RPT_ITS | CCD ---
:1965 External Reference #:[id number] Author Organization [facility] Care Team Providers Name Role Phone Bryce HARRIS, Haily Unavailable David HARRIS, P Unavailable Roof 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, H Unavailable Bryce HARRIS, Haily Unavailable PROVIDER [...] of Location Onset Acetaminophen / Critical, 11-10-2012 [facility] Surgical HYDROcodone Critical - Associates ([id number]) Acetaminophen / Vomiting Unknown, High 07-17-2011 Nickolas dueñas HYDROcodone Translations: - [facility] [ Repository HYDROCODONE-ACETAMINOPHEN , HYDROCODONE-ACETAMINOPHEN ] Acetaminophen / [facility] ([id number]) Acetaminophen / oxyCODONE Vomiting Unknown, High 07-17-2011 Brittany dowling General Translations: [ - Health Syste m OXYCODONE-ACETAMINOPHEN, Rep ository OXYCODONE-ACETAMINOPHEN] Acetaminophen / oxyCODONE [facility] (80574) Codeine Translations: [ GI Upset, Vomiting Moderate, 11-25-2012 [facility] Surgical CODEINE, CODEINE] Moderate, - Associates Unknown, High (47540) estradiol / norethindrone Feels wired, Critical, 01-08-2017 [facility] muscles hurt, Critical - Group (74736) lip/mouth burn, feels like asthma flaring, nausea, dizziness Estradiol / Norethindrone Unknown [facility] (57017) ESTRADIOL-NORETHINDRONE Intolerance 10-26-2016 [facility] ACET Translations: [ - Health System ESTRADIOL-NORETHINDRONE Repo sitory ACET, ESTRADIOL-NORETHINDRONE ACET] famotidine Critical, 01-08-2017 [facility] (32608) Famotidine Translations: Other: See 07-07-2016 [facility] [ FAMOTIDINE (PF), Comments - Health Sy stem FAMOTIDINE (PF)] Repository Famotidine Unknown [facility] (29904) metFORMIN Translations: [ Other: See 10-28-2017 Ak maria elena General METFORMIN, METFORMIN] Comments - Health System Repository methIMAzole Hives Moderate, 11-25-2012 [facility] Surgical Moderate - Associates (28426) methIMAzole Translations: Hives 10-14-2005 [facility] maria elena General [ METHIMAZOLE, - Health System METHIMAZOLE] Repository methylprednisoLONE Vomiting Critical, 01-08-2017 [facility] (44158) methylPREDNISolone Unknown [facility] (48647) METHYLPREDNISOLONE SODIUM Mental Status Unknown, High 01-22-2014 [facility] SUCC Translations: [ Change - Health System METHYLPREDNISOLONE SODIUM Re pository SUCC, METHYLPREDNISOLONE SODIUM SUCC] Nadolol wheezing, chest Moderate, 01-02-2013 [facility] Surgical tightness Moderate - Associates (84641) Medications Medication Name Sig Date Prescriber Location albuterol VENTOLIN HFA 108 (90 01-08-2017 - [facility] Base) MCG/ACT AERS 01-13-2017 (90729) ALBUTEROL SULFATE [id number] Noman Hernandez MD VENTOLIN HFA 108 (90 Base) 01-08-2017 - 01-13-2017 [facility] (83492) MCG/ACT AERS ALBUTEROL SULFATE [id number] Noman Hernandez MD VENTOLIN HFA 108 (90 Base) 01-08-2017 [facility] (22744) MCG/ACT AERS ALBUTEROL SULFATE [id number] Ayan Koehler 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 VENTOLIN HFA 108 (90 Base) 01-08-2017 - 01-13-2017 [facility] (84754) MCG/ACT AERS ALBUTEROL SULFATE [id number] Noman Hernandez MD VENTOLIN HFA 108 (90 Base) 01-08-2017 [facility] (63764) MCG/ACT AERS ALBUTEROL SULFATE [id number] Ayan Domi Zakia 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 VENTOLIN HFA 108 (90 Base) 01-08-2017 - 01-13-2017 [facility] (24021) MCG/ACT AERS ALBUTEROL SULFATE [id number] Noman Hernandez MD VENTOLIN HFA 108 (90 Base) 01-08-2017 [facility] (09893) MCG/ACT AERS ALBUTEROL SULFATE [id number] Ayan Domi Zakia 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 VENTOLIN HFA 108 (90 Base) 01-08-2017 [facility] (88563) MCG/ACT AERS ALBUTEROL SULFATE [id number] Ayan Duron Zakia 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 VENTOLIN HFA 108 (90 Base) 01-08-2017 [facility] (63638) MCG/ACT AERS ALBUTEROL SULFATE [id number] Ayan Duron Roof 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 Ventolin HFA 108 (90 Base) 06-03-2016 [facility] (73859) MCG/ACT Inhalation Aerosol Solution Refills: 0 Start : 03-Jun-2016 Active 8 GM Inhaler ALPRAZolam ALPRAZolam 1 MG 11-10-2012 - [facility] Tablet TAKE 1 01-13-2017 [facility] TABLET 3 TIMES (27923) DAILY NEEDED. Refills: 0 Start : 17-Sep-2015 Active Amoxicillin / amoxicillin-clavul 01-04-2020 - [facility] and [facility] Clavulanate anic acid 01-14-2020 (96193) (AUGMENTIN) 875-125 mg per tablet Indications: Bacterial sinusitis Take 1 tablet by mouth twice daily for 10 days. 20 tablet 0 01/04/2020 01/14/2020 Active Comment: Take 1 tablet by mouth twice daily for 10 days. Aspirin ASPIRIN 81 MG TABS One 03-30-2012 - --2013 [facility] tablet by mouth daily (79500 ) ASPIRIN [id number] Tabitha Benedict RN ASPIRIN 81 MG TABS One tablet 03-30-2012 - 11-20-2013 [facility] by mouth daily (65074 ) ASPIRIN [id number] Blair Canseco MD bazedoxifene / DUAVEE 0.45-20 MG TABS One 11-27-2016 - Michelle Sutton Estrogens, tablet by mouth daily 01-08-2017 Bryce HARRIS [facility] Conjugated (RESIDENTIAL) CONJ (56380) ESTROGENS-BAZEDOXIFENE [id number] Michelle Wu MD DUAVEE 0.45-20 MG TABS One 11-27-2016 - [place] tablet by mouth daily 01-08-2017 [facility] CONJ (4469 1) ESTROGENS-BAZEDOXIFENE [id number] Ayan Zakia 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 DUAVEE 0.45-20 MG TABS One 11-27-2016 Michelle Johansen [place] tablet by mouth daily Bryce HARRIS [facility] CONJ (25341) ESTROGENS-BAZEDOXIFENE [id number] Michelle Wu MD DUAVEE 0.45-20 MG TABS One 11-27-2016 - [place] tablet by mouth daily 01-08-2017 [facility] CONJ (4469 1) ESTROGENS-BAZEDOXIFENE [id number] Ayan Zakia 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 DUAVEE 0.45-20 MG TABS One 11-27-2016 Michelle Johansen [place] tablet by mouth daily Bryce HARRIS [facility] CONJ (11449) ESTROGENS-BAZEDOXIFENE [id number] Michelle Wu MD DUAVEE 0.45-20 MG TABS One 11-27-2016 - [place] tablet by mouth daily 01-08-2017 [facility] CONJ (4469 1) ESTROGENS-BAZEDOXIFENE [id number] Ayan [facility] 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 DUAVEE 0.45-20 MG TABS One 11-27-2016 Michelle E [place] tablet by mouth daily Bryce HARRIS [facility] CONJ (91429) ESTROGENS-BAZEDOXIFENE [id number] Michelle Wu MD DUAVEE 0.45-20 MG TABS One 11-27-2016 Michelle E [place] tablet by mouth daily Bryce HARRIS [facility] CONJ (86031) ESTROGENS-BAZEDOXIFENE [id number] Michelle Wu MD DUAVEE 0.45-20 MG TABS One 11-27-2016 - [place] tablet by mouth daily 01-08-2017 [facility] CONJ (4469 1) ESTROGENS-BAZEDOXIFENE [id number] [facility] 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 DUAVEE 0.45-20 MG TABS One 11-27-2016 - [place] tablet by mouth daily 01-08-2017 [facility] CONJ (4469 1) ESTROGENS-BAZEDOXIFENE [id number] [facility] 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 DUAVEE 0.45-20 MG TABS One 11-27-2016 Michelle E [place] tablet by mouth daily Bryce HARRIS [facility] CONJ (95158) ESTROGENS-BAZEDOXIFENE [id number] Michelle Wu MD DUAVEE 0.45-20 MG TABS One 11-27-2016 Michelle E [place] tablet by mouth daily Bryce HARRIS [facility] CONJ (30906) ESTROGENS-BAZEDOXIFENE [id number] Michelle Wu MD DUAVEE 0.45-20 MG TABS One 11-27-2016 Michelle E [place] tablet by mouth daily Bryce HARRIS [facility] CONJ (26879) ESTROGENS-BAZEDOXIFENE [id number] Michelle Wu MD DUAVEE 0.45-20 MG TABS One 11-27-2016 Michelle E [place] tablet by mouth daily Bryce HARRIS [facility] CONJ (33054) ESTROGENS-BAZEDOXIFENE [id number] Michelle Wu MD Betaxolol BETAXOLOL HCL 10 MG TABS 01-08-2017 - 01-13-2017 [facility] take half a pill by mouth (4 4691) daily BETAXOLOL HCL [id number] Noman Hernandez MD BETAXOLOL HCL 10 MG 03-07-2013 - Pati Richardson [facility] Women's TABS one half (1/2) 01-08-2017 [facility] (94819) tablet by mouth daily BETAXOLOL HCL [id number] Pati Richardson PA-C BETAXOLOL HCL 10 MG 03-07-2013 - [facility] TABS 5mg daily 03-07-2013 Care (43889) BETAXOLOL HCL [id number] Tabihta Benedict RN Blood-Glucose Meter Blood-Glucose Meter 10-22-2017 [facility] (FREESTYLE LITE METER) (FREESTYLE LITE METER) (31910) monitoring kit monitoring kit 1 Each as needed. 1 Each 0 10/22/2017 Active Blood-Glucose Meter (FREESTYLE LITE 10-22-2017 [facility] (95499) METER) monitoring kit 1 Each as needed. 1 Each 0 10/22/2017 Active Blood-Glucose Meter (FREESTYLE LITE 10-22-2017 [facility] (38072) METER) monitoring kit 1 Each as needed. 1 Each 0 10/22/2017 Active Blood-Glucose Meter (FREESTYLE LITE 10-22-2017 [facility] (07628) METER) monitoring kit 1 Each as needed. 1 Each 0 10/22/2017 Active Blood-Glucose Meter (FREESTYLE LITE 10-22-2017 [facility] (58501) METER) monitoring kit 1 Each as needed. 1 Each 0 10/22/2017 Active Blood-Glucose Meter (FREESTYLE LITE 10-[facility]36909[facility] monitoring kit 1 Each as needed. 1 Each 0 10/22/2017 Active Blood-Glucose Meter (FREESTYLE LITE 10-22-2017 [facility] (96056) METER) monitoring kit 1 Each as needed. 1 Each 0 10/22/2017 Active Blood-Glucose Meter (FREESTYLE LITE 10-22-2017 [facility] (52119) METER) monitoring kit 1 Each as needed. 1 Each 0 10/22/2017 Active Blood-Glucose Meter (FREESTYLE LITE 10-22-2017 [facility] (50322) METER) monitoring kit 1 Each as needed. 1 Each 0 10/22/2017 Active Blood-Glucose Meter (FREESTYLE LITE 10-22-2017 [facility] (01298) METER) monitoring kit 1 Each as needed. 1 Each 0 10/22/2017 Active Blood-Glucose Meter (FREESTYLE LITE 10-22-2017 [facility] (79555) METER) monitoring kit 1 Each as needed. 1 Each 0 10/22/2017 Active Blood-Glucose Meter (FREESTYLE LITE 10-22-2017 [facility] (86361) METER) monitoring kit 1 Each as needed. 1 Each 0 10/22/2017 Active Blood-Glucose Meter (FREESTYLE LITE 10-22-2017 [facility] (17023[facility]) monitoring kit 1 Each as needed. 1 Each 0 10/22/2017 Active Blood-Glucose Meter (FREESTYLE LITE 10-13-2017 [facility] (51805) METER) monitoring kit 1 Each as needed. 1 Each 0 10/13/2017 Active Blood-Glucose Meter (FREESTYLE LITE 10-13-2017 [facility] (44799) METER) monitoring kit 1 Each as needed. 1 Each 0 10/13/2017 Active Blood-Glucose Meter (FREESTYLE LITE 10-13-2017 [facility] (48112) METER) monitoring kit 1 Each as needed. 1 Each 0 10/13/2017 Active Blood-Glucose Meter (FREESTYLE LITE 10-13-2017 [facility] (99277) METER) monitoring kit 1 Each as needed. 1 Each 0 10/13/2017 Active Blood-Glucose Meter (FREESTYLE LITE 10-13-2017 [facility] (14863) METER) monitoring kit 1 Each as needed. 1 Each 0 10/13/2017 Active Blood-Glucose Meter (FREESTYLE LITE 10-13-2017 [facility] (30550) METER) monitoring kit 1 Each as needed. 1 Each 0 10/13/2017 Active Blood-Glucose Meter (FREESTYLE LITE 10-13-2017 [facility] (08686) METER) monitoring kit 1 Each as needed. 1 Each 0 10/13/2017 Active Blood-Glucose Meter (FREESTYLE LITE 10-13-2017 [facility] (84720) METER) monitoring kit 1 Each as needed. 1 Each 0 10/13/2017 Active Blood-Glucose Meter (FREESTYLE LITE 10-13-2017 [facility] (32915) METER) monitoring kit 1 Each as needed. 1 Each 0 10/13/2017 Active Blood-Glucose Meter (FREESTYLE LITE 10-13-2017 [facility] (21864) METER) monitoring kit 1 Each as needed. 1 Each 0 10/13/2017 Active Blood-Glucose Meter (FREESTYLE LITE 10-13-2017 [facility] (82338) METER) monitoring kit 1 Each as needed. 1 Each 0 10/13/2017 Active Blood-Glucose Meter (FREESTYLE LITE 10-13-2017 [facility] (43738) METER) monitoring kit 1 Each as needed. 1 Each 0 10/13/2017 Active Blood-Glucose Meter (FREESTYLE LITE 10-13-2017 [facility] (84172) METER) monitoring kit 1 Each as needed. 1 Each 0 10/13/2017 Active Comment: 1 Each as needed. CPAP CPAP Indications: ANDRESSA 02-01-2020 [facility] (98568) (obstructive sleep apnea) Initiate Auto PAP @ 5-20 cm of water with humidification. Mask (per patient preference) optional chin strap (if indicated) , filters, tubing, humidifier and lifetime supplies. 1 Device 0 02/01/2020 Active CPAP Indications: ANDRESSA (obstructive 02-01-2020 [facility] (65882) sleep apnea) Initiate Auto PAP @ 5-20 cm of water with humidification. Mask (per patient preference) optional chin strap (if indicated) , filters, tubing, humidifier and lifetime supplies. 1 Device 0 02/01/2020 Active CPAP Indications: ANDRESSA (obstructive 02-01-2020 Hugo taylor [facility] (22203) sleep apnea) Initiate Auto PAP @ 5-20 [...] CD 120 MG 01-02-2013 - [place] [facility] Women's [id number] One tablet 03-30-2013 RN Care (4 4691) by mouth daily DILTIAZEM HCL COATED BEADS [id number] Blair Canseco MD CARDIZEM CD 120 MG 01-02-2013 [facility] [id number] One tablet Care (62390 ) by mouth daily DILTIAZEM HCL COATED BEADS [id number] Blair Canseco MD CARDIZEM CD 120 MG 01-02-2013 - [facility] omen's [id number] One tablet 03-30-2013 Care (47858 ) by mouth daily DILTIAZEM HCL COATED BEADS 89180459796 Tabitha Benedict RN CARDIZEM CD 120 MG 01-02-2013 - [facility] omen's [id number]-IJI One tablet 03-30-2013 Care (30369 ) by mouth daily DILTIAZEM HCL COATED BEADS [id number] Tabitha Benedict RN CARDIZEM CD 120 MG 01-02-2013 [place] [facility] [id number] One tablet Care (50322 ) by mouth daily DILTIAZEM HCL COATED BEADS 96088530001 Blair ROJASM CD 120 MG 01-02-2013 - [facility] [id number] One tablet 03-30-2013 [facility] (86146 ) by mouth daily DILTIAZEM HCL COATED BEADS 59667406202 Tabitha Benedict RN CARDIZEM CD 120 MG 01-02-2013 [place] [facility] [id number] One tablet Care (09369 ) by mouth daily DILTIAZEM HCL COATED BEADS 53606078570 Blair Canseco MD CARDIZEM CD 120 MG 01-02-2013 [place] [facility] [id number] One tablet Care (23374 ) by mouth daily DILTIAZEM HCL COATED BEADS 98947751610 Blair Canseco MD CARDIZEM CD 120 MG 01-02-2013 - [facility] [id number]-[id number] One tablet 03-30-2013 Care (87562 ) by mouth daily DILTIAZEM HCL COATED BEADS 08923123441 Tabitha Benedict RN CARDIZEM CD 120 MG 01-02-2013 [place] [facility] [id number]-ODC One tablet Care (98971 ) by mouth daily DILTIAZEM HCL COATED BEADS 49299086078 Blair Canseco MD CARDIZEM CD 120 MG 01-02-2013 - [facility] [id number] One tablet 03-30-2013 Care (22611 ) by mouth daily DILTIAZEM HCL COATED BEADS 42191204496 Tabitha Benedict RN CARDIZEM CD 120 MG 01-02-2013 - [facility] [id number] One tablet 03-30-2013 Care (06913 ) by mouth daily DILTIAZEM HCL COATED BEADS 94459234447 Tabitha Benedict RN CARDIZEM CD 120 MG 01-02-2013 [place] [facility] [id number] One tablet Care (31409 ) by mouth daily DILTIAZEM HCL COATED BEADS 31122940987 Blair Canseco MD CARDIZEM CD 120 MG 01-02-2013 - [place] [place] omen's [id number]-JUR One tablet 03-30-2013 [facility] (92310 ) by mouth daily DILTIAZEM HCL COATED BEADS 92151373812 Tabitha Benedict RN CARDIZEM CD 120 MG 01-02-2013 [place] [facility] [place] Women[facility] [id number]-NRT One tablet Care (06076 ) by mouth daily DILTIAZEM HCL COATED BEADS 00766071310 Blair Canseco MD CARDIZEM CD 120 MG 01-02-2013 - [facility] omen's [id number] One tablet 03-30-2013 Care (27665 ) by mouth daily DILTIAZEM HCL COATED BEADS 92417961923 HONORIO FordeM CD 120 MG 01-02-2013 [place] RN [place] Women's [id number]-CFU One tablet Care (87419 ) by mouth daily DILTIAZEM HCL COATED BEADS 55723743004 Blair Canseco MD Estradiol CLIMARA 0.0375 MG/24HR PTWK 11-16-2016 [facility] Apply 1 patch as directed once (42422) each week ESTRADIOL [id number] Ayan Koehler NP ESTRADIOL 0.025 MG/24HR 11-16-2016 Michelle Wu MD [facility] PTWK take as directed (20612) ESTRADIOL 26190333136 Michelle Wu MD CLIMARA 0.0375 MG/24HR 11-16-2016 [facility] [facility] PTWK Apply 1 patch as (84831) directed once each week ESTRADIOL [id number] Aayn Koehler NP CLIMARA 0.0375 MG/24HR 11-16-2016 [facility] PTWK Apply 1 patch as (28839) directed once each week ESTRADIOL 89180059980 Ayan Duron Zakia 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 CLIMARA 0.0375 MG/24HR 11-16-2016 [facility] PTWK Apply 1 patch as (04541) directed once each week ESTRADIOL [id number] Ayan Duron Roof 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 CLIMARA 0.0375 MG/24HR 11-16-2016 [facility] PTWK Apply 1 patch as (80612) directed once each week ESTRADIOL 98065160613 Ayan Duron Roof 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 CLIMARA 0.0375 MG/24HR 11-16-2016 [facility] PTWK Apply 1 patch as (09392) directed once each week ESTRADIOL 93199686192 Ayan Duron Zakia 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 famotidine PEPCID 20 MG TABS One 01-08-2017 - [facility] tablet by mouth daily 01-13-2017 Group (23714) FAMOTIDINE [id number] Ayan Zakia 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 levothyroxine SYNTHROID 137 mcg 12-11-2019 Antonieta Berkowitz on tablet Indications: (Pa-C) [facility] Postablative (74406) hypothyroidism Take by mouth 8 tabs daily / weekly 96 tablet 3 12/11/2019 Active SYNTHROID 137 mcg tablet 06-27-2019 - Antonieta Esqueda (Pa-C) [place] [place] Women[facility] Indications: Postablative 12-11-2019 [facility] ( 82900) hypothyroidism Take 1 tablet by mouth once daily. 30 tablet 5 06/27/2019 12/11/2019 Discontinued SYNTHROID 137 MCG TABS 11-16-2016 Lizabeth King [place] [facility] Take one tablet on Wednesday Care ( 20689) LEVOTHYROXINE SODIUM 25508908117 Michelle Wu MD SYNTHROID 137 MCG TABS 11-16-2016 Lizabeth King [place] Women[facility] Take one tablet on Wednesday Care ( 48404) LEVOTHYROXINE SODIUM 47377615625 Michelle Wu MD SYNTHROID 137 MCG TABS 11-16-2016 Lizabeth [place] Women[facility] Take one tablet on Hernandez Care ( 16190) LEVOTHYROXINE SODIUM 27618171456 Michelle Wu MD SYNTHROID 137 MCG TABS 11-16-2016 Lizabeth[place]alia [place] Women[facility] Take one tablet on [facility] Care ( 33770) LEVOTHYROXINE SODIUM [id number] Michelle Wu MD SYNTHROID 137 MCG TABS 11-16-2016 [place] [place] Women[facility] Take one tablet on [facility] ( 32593) LEVOTHYROXINE SODIUM [id number] Michelle Wu MD SYNTHROID 137 MCG TABS 11-16-2016 [place] Women[facility] Take one tablet on [facility] ( 14585) LEVOTHYROXINE SODIUM [id number] Michelle Wu MD SYNTHROID 137 MCG TABS 11-16-2016 [place] Women[facility] Take one tablet on [facility] ( 35556) LEVOTHYROXINE SODIUM [id number] Michelle Wu MD SYNTHROID 137 MCG TABS 11-16-2016 [place]alia [place] Women[facility] Take one tablet on [facility] ( 16002) LEVOTHYROXINE SODIUM 74755358699 Michelle Wu MD SYNTHROID 137 MCG TABS 04-28-2016 [place] [place] Women[facility] Take one tablet on [facility] Care ( 26568) LEVOTHYROXINE SODIUM 39134741156 Michelle Wu MD Levothyroxine Sodium 125 05-25-2013 [place] [facility] MCG Oral Tablet Pt takes Care (4 4691) 1 tablet Wednesday through Wednesday. Refills: 0 Start : 22-Oct-2016 Active SYNTHROID 125 MCG TABS 05-25-2013 [place] [facility] One tablet by mouth daily Care ( 52039) LEVOTHYROXINE SODIUM 77655391554 RUKHSANA BakerC SYNTHROID 125 MCG TABS 05-25-2013 [facility] One tablet by mouth daily Care ( 59991) LEVOTHYROXINE SODIUM [id number] Pati Richardson PA-C SYNTHROID 125 MCG TABS 05-25-2013 [place] [facility] One tablet by mouth daily Care ( 95920) LEVOTHYROXINE SODIUM [id number] Pati Richardson PA-C SYNTHROID 125 MCG TABS 05-25-2013 [facility] One tablet by mouth daily Care ( 48951) LEVOTHYROXINE SODIUM [id number] Pati Richardson PA-C SYNTHROID 125 MCG TABS 05-25-2013 [facility] [facility] One tablet by mouth daily Care ( 84318) LEVOTHYROXINE SODIUM [id number] Pati Richardson PA-C SYNTHROID 125 MCG TABS 05-25-2013 [place] [facility] One tablet by mouth daily Care ( 42123) LEVOTHYROXINE SODIUM [id number] Pati Richardson PA-C SYNTHROID 125 MCG TABS 05-25-2013 [facility] One tablet by mouth daily Care ( 90916) LEVOTHYROXINE SODIUM [id number] Pati Richardson PA-C SYNTHROID 125 MCG TABS 05-25-2013 [place] [facility] One tablet by mouth daily Care ( 64927) LEVOTHYROXINE SODIUM [id number] Pati Richardson PA-C SYNTHROID 175 MCG TABS 01-11-2013 [place] Women[facility] days a week Care (446 91) LEVOTHYROXINE SODIUM [id number] Pati Richardson PA-C SYNTHROID 175 MCG TABS 5 01-11-2013 [place] Women[facility] days a week Care (446 91) LEVOTHYROXINE SODIUM [id number] Pati Richardson PA-C SYNTHROID 175 MCG TABS 5 01-11-2013 [place] Women[facility] days a week Care (446 91) LEVOTHYROXINE SODIUM [id number] Pati Richardson PA-C SYNTHROID 175 MCG TABS 5 01-11-2013 [place] Women[facility] days a week Care (446 91) LEVOTHYROXINE SODIUM [id number] Pati Richardson PA-C SYNTHROID 175 MCG TABS 5 01-11-2013 [place] Women[facility] days a week Care (446 91) LEVOTHYROXINE SODIUM [id number] Pati Richardson PA-C SYNTHROID 175 MCG TABS 5 01-11-2013 [place] Women[facility] days a week Care (446 91) LEVOTHYROXINE SODIUM [id number] Pati Richardson PA-C SYNTHROID 175 MCG TABS 5 01-11-2013 [place] Women[facility] days a week Care (446 91) LEVOTHYROXINE SODIUM [id number] Pati Richardson PA-C SYNTHROID 175 MCG TABS 5 01-11-2013 [place] Women[facility] days a week Care (446 91) LEVOTHYROXINE SODIUM [id number] Pati Richardson PA-C LEVOTHYROXINE SODIUM 150 11-10-2012 - [place] Women[facility] MCG TABS One tablet by 11-25-2012 Care (446 91) mouth on Mondays and Fridays LEVOTHYROXINE SODIUM [id number] Stephanie Torres RN SYNTHROID 175 MCG TABS 5 11-10-2012 [place] Women[facility] days a week Care (446 91) LEVOTHYROXINE SODIUM [id number] Pati Richardson PA-C SYNTHROID 175 MCG TABS 11-10-2012 [facility] One tablet by mouth daily Care ( 28298) LEVOTHYROXINE SODIUM [id number] Stephanie Torres RN SYNTHROID 175 MCG TABS 11-10-2012 [facility] One tablet by mouth daily Care ( 16719) LEVOTHYROXINE SODIUM [id number] Stephanie Torres RN SYNTHROID 175 MCG TABS 11-10-2012 [place] [facility] One tablet by mouth daily Care ( 28740) LEVOTHYROXINE SODIUM [id number] Stephanie Torres RN SYNTHROID 175 MCG TABS 11-10-2012 [place] [facility] One tablet by mouth daily Care ( 38181) LEVOTHYROXINE SODIUM [id number] Stephanie Torres RN SYNTHROID 175 MCG TABS 11-10-2012 [place] [facility] One tablet by mouth daily Care ( 31872) LEVOTHYROXINE SODIUM [id number] Stephanie Torres RN SYNTHROID 175 MCG TABS 11-10-2012 [facility] [facility] One tablet by mouth daily Care ( 33545) LEVOTHYROXINE SODIUM [id number] Stephanie Torres RN SYNTHROID 175 MCG TABS 11-10-2012 [place] [facility] One tablet by mouth daily Care ( 71786) LEVOTHYROXINE SODIUM [id number] Stephanie Torres RN SYNTHROID 175 MCG TABS 11-10-2012 [place] [facility] One tablet by mouth daily Care ( 92426) LEVOTHYROXINE SODIUM [id number] Stephanie Torres RN Comment: Take by mouth 8 tabs daily / weekly Take 1 tablet by mouth once daily. Meclizine MECLIZINE HCL 25 MG 11-10-2012 - [place] Women[facility] TABS One tablet by 11-25-2012 Care (447 01) mouth three times daily As needed MECLIZINE HCL [id number] Blair Canseco MD Nadolol NADOLOL 20 MG TABS One 12-08-2012 - [place] Women[facility] tablet by mouth daily 01-02-2013 [facility] ( 68713) NADOLOL [id number] Blair Canseco MD Nitroglycerin NITROGLYCERIN 0.4 03-30-2013 [facility] Surgi satnam MG/HR PT24 1 tablet Associat es (30374) under tongue every 5 min up to 3 X NITROGLYCERIN [id number] Tabitha Benedict, HONORIO Omeprazole OMEPRAZOLE 40 MG CPDR 11-10-2012 - [facility] tablet by mouth 11-25-2012 [facility] (44 691) twice daily OMEPRAZOLE [id number] Blair Canseco MD PARoxetine PAXIL 10 MG TABS One 01-08-2017 - [facility] tablet by mouth daily 01-13-2017 (80941 ) PAROXETINE HCL [id number] Ayan Koehler NP PAXIL 10 MG TABS One tablet by 01-08-2017 - 01-13-2017 [facility] (59424) mouth daily PAROXETINE HCL [id number] Ayan Koehler NP RA Natural Magnesium RA Natural Magnesium 05-27-2017 [facility] 250 MG Oral Tablet 250 MG Oral Tablet [facility] Refills: 0 Start : (61563) 27-May-2017 Active Spironolactone SPIRONOLACTONE 25 MG 11-10-2012 - [place] [facility] TABS One tablet by 11-25-2012 [facility] (446 91) mouth daily SPIRONOLACTONE [id number] Blair Canseco MD Problems Active Problems Category Problem Name Status Date Location Anxiety disorders Anxiety Active 07-10-2013 [facility] - [facility] (57237) Attention-deficit Attention deficit Active 11-08-2014 [facility]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, - (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 Cardiac dysrhythmias Palpitations Active 11-10-2012 [facility] (22987) Chronic obstructive Simple chronic bronchitis Active 12-02-19 18 [facility] pulmonary disease and - (35846 ) bronchiectasis Complications of Postprocedural Active 04-06-2006 [facility] procedures or hypothyroidism - [facility] medical care (28741) Conditions associated Dizziness and giddiness Active 10-13-19 18 [facility] Health with dizziness or - System (00 000) vertigo Esophageal disorders Gastroesophageal reflux Active 7 [facility] Surgical disease - Associates (996 91) Essential hypertension Hypertensive disorder Active 3 [facility] Surgical - Associates (446 91) Heart valve disorders Mitral valve prolapse Active 02-23-2018 [facility] - (07795) Malaise and fatigue Fatigue Active 11-10-2012 [facility] Surg ical - Associates (446 91) Menopausal disorders Menopausal and female Active 12-13-2015 [place] climacteric states - Women[facility] C are (06248) Mood disorders 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 - (81638 ) remission Nonspecific chest pain Chest pain Active 11-25-2012 [facility] S urgical - Associates (446 91) Nutritional deficiencies Decreased vitamin D Active 4 [facility] (48618) Other connective tissue Swelling of bilateral Active [facility] disease lower limbs (18827) Other gastrointestinal Irritable bowel syndrome Active 2017 [facility] disorders with diarrhea - (02867) Other hematologic Increased hemoglobin Active [facility] conditions (81089) Other lower respiratory Hypoxia Active [facility] disease [facility] (69716) Other nervous system Burning sensation of skin Active 018 [facility] disorders - (53096) Other non-traumatic Multiple joint pain Active [facility] (20975) Other nutritional; Body mass index (BMI) Active 08-22-2014 [facility] Surgical endocrine; and metabolic 32.0-32.9, adult - Associates (60012) disorders Other nutritional; Body mass index (BMI) Active 11-20-2013 [place] endocrine; and metabolic 37.0-37.9, adult - - [facility] disorders 09-28-2014 (65326) - Other nutritional; Body mass index 30+ - Active -[facility] endocrine; and metabolic obesity [facility] disorders (96750) Other screening for Electrocardiogram Active 11-25-2012 [facility] Surgical suspected conditions abnormal - Associa inocecnio (29428) (not mental disorders or infectious disease) Other skin disorders Eruption Active [facility] (60341) Other upper respiratory Bacterial sinusitis Active [facility] infections (09695) Residual codes; Obstructive sleep apnea Active 01-24-2020 [facility] unclassified syndrome - (34615) Residual codes; Menopause present Active 11-16-2016 [facility] Ramila gical unclassified - Associates (441 91) Screening and history of Tobacco use and exposure Active [facility] mental health and - finding (90114) substance abuse codes Substance-related Tobacco dependence Active 11-10-2012 [facility] Surgical disorders syndrome - Associates (44 91) Systemic lupus Systemic lupus Active 02-14-2018 [facility] erythematosus and erythematosus - Group-[facility] connective tissue (52355) disorders Thyroid disorders Hyperthyroidism Active 01-11-2013 [facility] Ramila gical - Associates (44 91) Unclassified Patient encounter status Active 06-20-2018 [facility] - (68757) Unclassified Cancer cervix screening Active 06-20-2018 [facility] status - (04153) Unclassified Screening for malignant Active 01-13-2017 [facility] Surgical neoplasm of colon - Associates (85222) Unclassified Procedure carried out on Active 12-14-2016 [place] subject - [facility] (50940) Unclassified Gynecologic examination Active 12-14-2016 [place] [facility] (68256) Unclassified Screening for malignant Active 12-14-2016 [place] neoplasm of cervix - Women[facility] C are (03238) Unclassified Treatment not available Active [facility] (86667) Past or Other Problems Category Problem Name Status Date Location Abdominal pain Acute pain in female Completed 11-27-2016 - [facility] Women's pelvis Care (66000) Diabetes mellitus Impaired glucose Completed 09-06-2014 - [facility] without complication tolerance (53693) Diseases of mouth; Sore mouth Completed 02-16-2018 - [facility] excluding dental (10138) Immunizations and Encounter for Completed 12-14-2016 - 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 (42351 ) Other circulatory Elevated Completed 09-06-2014 - [facility] disease blood-pressure reading (0713 5) without diagnosis of hypertension Other circulatory H/O: heart disorder Completed 11-10-2012 - [facility] Surgical disease Associates (243 91) Other lower Dyspnea Completed 11-10-2012 - [facility] Surgical respiratory disease Associat es (19483) Residual codes; Difficulty sleeping Completed 02-16-2018 - [facility] unclassified (82602) Residual codes; Edema Completed 11-10-2012 - [facility] Surgical unclassified Associates (962 56) Residual codes; Family history of Completed [facility] Ramila gical unclassified ischemic heart disease Assoc iates (52384) and other diseases of the circulatory system NEGATED: Highlighted Disease Completed [facility] has not Group-[facility] occurred!Residual (22407) codes; unclassified Residual codes; FH: Hypertension Completed [facility] Surg ical unclassified Associates (360 95) Unclassified Drug therapy finding Completed [facility] (19143) Unclassified History of clinical Completed [facility] finding in subject Group-Glenys renee (77540) Results Result Name Value Range Unit Interpretation Flag Date Location progress on 2020-01 PROGRESS HNO ID: [id number] Normal 02-05-2020 [facility] Author: Marlin Mohamud [facility] ([id number]) Service: ? Author Type: Nurse Practitioner Type: Progress Notes Filed: 02/05/2020 5:04 PM Note Text: This is an Express Care eVisit note for Jazlyn Garzon eVisit/Questionnaire reviewed The chief complaint for the visit - Patient presents with: Eye Problem Recommendations/Treatment plan - See My Chart Message to [facility] Total time spent: < 5 minutes. Marlin Mohamud APRN.WINDOW MAKER PROGRESS HNO ID: [id number] Normal 02-05-2020 [facility] Author: Richa Rubin [facility] ([id number]) Service: ? Author Type: Physician Type: Progress Notes Filed: 02/05/2020 4:29 PM Note Text: [facility]IOLOGY Cardiology ([place] [facility] [address] [facility] [address] OUTPATIENT VISIT DATE 02/04/2020 PRIMARY CARE PHYSICIAN: Hugo Nava MD [address] [place] [address] REFERRING PHYSICIAN: Hugo Nava MD [address] [facility] [address] CHIEF COMPLAINT: Inappropriate sinus tachycardia and chest [...] Family history: Patient's father had his first AL at age 50. He had stents at [...] stroke - Colon Cancer Father age 64 AL - Diabetes Father Type 2 - Hypertension Father - Coronary Artery Disease Father Hx of AL - Thyroid Sister hx of parathyroid disease/ [...] the years. Had a recent admission to [facility] emergency room on that hospita l [...] CNOV Office Visit (CAWSTR) Normal 02-05-20 20 [facility] JAZLYN GARZON ([id number]) 1965 F [facility] Date Time Provider Department (26474) 02/05/20 2:00 PM RICHA RUBINWS During your visit today, we recorded the following informati on about you: Pulse Respiration Blood pressure Weight 100/minute 16/minute 142/84 91.6 kg Richa Rubin MD 02/05/2020 4:29 PM Signed [facility] Cardiology ([facility]) [address] [facility] [address] OUTPATIENT VISIT DATE 02/04/2020 PRIMARY CARE PHYSICIAN: Hugo Nava MD [address] [place] [address] REFERRING PHYSICIAN: Hugo Nava MD [address] [facility] [address] CHIEF COMPLAINT: Inappropriate sinus tachycardia and chest [...] right ventricle is normal in size. Right ojel tricular systolic function is normal. - There [...] stroke - Colon Cancer Father age 64 AL - Diabetes Father Type 2 - Hypertension Father - Coronary Artery Disease Father Hx of AL - Thyroid Sister hx of parathyroid disease/ [...] the years. Had a recent admission to [facility] emergency room on that hospital admission, [...] Richa Rubin MD Referring Provider: HUGO NAVA [[id number]] Allergies As of Date: 02/05/2020 Noted Allergy [...] [R07.89] Order(s):CONSULT TO CARDIOLOGY [9004] Order #: [id number] : 1 Prescriptions as of 02/05/2020 Sig: [...] 02/05/20 progress on 2020-01 PROGRESS HNO ID: [id number] Normal 02-01-2020 [facility] Author: Hugo Nava [facility] ([id number]) Service: ? Author Type: Physician Type: Progress [...] stroke - Colon Cancer Father age 64 AL - Diabetes Father Type 2 - Hypertension Father - Coronary Artery Disease Father Hx of AL - Thyroid Sister hx of parathyroid disease/ [...] prn. progress on 2020-01 PROGRESS HNO ID: [id number] Normal 01-30-2020 [facility] Author: Ha Ortiz [facility] Service: ? [facility] Author Type: Physician ([id number]) Type: Progress Notes Filed: 01/30/2020 1:44 PM [...] stroke - Colon Cancer Father age 64 AL - Diabetes Father Type 2 - Hypertension Father - Coronary Artery Disease Father Hx of AL - Thyroid Sister hx of parathyroid disease/ [...] Urine <=45.0 ug/d 48.8 (H) Cortisol ug/g Mandrel Puller, Ur (UFRCRT) ug/g TOWER CLIMBER 33.64 Free Cortisol UR, Interpretation SEE NOTE [...] 324 ug/d 251 Epinephrine, Ur ratio to TOWER CLIMBER 0 - 20 ug/g TOWER CLIMBER 6 Norepinephrine, Ur ratio to TOWER CLIMBER 0 - 45 ug/g TOWER CLIMBER 46 (H) Dopamine, Ur ratio to TOWER CLIMBER 0 - 250 ug/g TOWER CLIMBER 194 Catecholamines Interpretation SEE NOTE Epinephrine, Ur [...] ug/d 46.3 (H) 48.8 (H) Cortisol ug/g Mandrel Puller, Ur (UFRCRT) ug/g TOWER CLIMBER 32.74 33.64 Free Cortisol UR, Interpretation SEE [...] 2.3 Percent free calculation not provided by [employer]. Testosterone Free 0.06 - 0.92 ng/dL 8.8 [...] Tryptase <8.4 ug/L 7.2 cnpn on 2020-01-29 [facility] Tele[facility] (FAMPWS) Normal 01-29-2020 [facility] JAZLYN Jones ([id number]) 1965 F [facility] Time Provider Department (00144) 01/29/20 HUGO NAVA During your visit today, we recorded the following informati on about you: Hugo Nava MD 01/29/2020 12:47 PM Signed Let her know [facility] contacted us. Even the the doctor reading it felt she should be treated w ith cpap, her insurance if refusing to cover at her level. We could have her see a sleep doc if she is willing. Sudha Joesph MARRERO 01/29/2020 1:34 PM Signed Video[employer] message sent to patient. Allergies As of [...] Hives Date Reviewed: 08/21/2019 Reviewed by: Ofe ([facility]) Yoel - Fully Assessed Reason for Visit: [...] PINK LPN on 01/29/20 cnpn on 2020-01-11 [facility] Tele[facility] (FAMPWS) Normal 01-11-2020 [facility] JAZLYN Jones ([id number]) 1965 [facility] Date Time Provider Department (04246) 01/11/20 Antonieta CEJA (GREG[place]IO) [facility] During your visit today, we recorded the following informati on about you: Darlene Donato LPN 01/11/2020 8:21 AM Signed Michelle from [facility] Sleep Lab satnam ling patient is scheduled [...] most recent sleep study. All faxed to [facility] S leep lab. Allergies As of Date: [...] Hives Date Reviewed: 08/21/2019 Reviewed by: Ofe ([facility]) Yoel - Fully Assessed Reason for Visit: [...] 01/11/20 progress on 2019-12 PROGRESS HNO ID: [id number] Normal 01-04-2020 [facility] Author: Hugo Nava [facility] ([id number]) Service: ? Author Type: Physician Type: Progress [...] stroke - Colon Cancer Father age 64 AL - Diabetes Father Type 2 - Hypertension Father - Coronary Artery Disease Father Hx of AL - Thyroid Sister hx of parathyroid disease/ [...] more than 50% of the t otal [id number] time of the visit in counseling / coordination of care. obsolete on 2019-12 OBSOLETE Refill (ENDOSO) Normal 12-31-2019 Soy cortez [facility] FLORAJAZLYN ([id number]) 1965 [facility] Date Time Provider Department (21168) 12/31/19 KARO CALLAHANO During your visit today, [...] up thank you. Patient is seen in [place], I do not have the [place] schedulers pool. Mague Buck Pss 01/17/2020 10:07 [...] Hives Date Reviewed: 08/21/2019 Reviewed by: Ofe ([facility]) Yoel - Fully Assessed Reason for Visit: [...] on 2019-12-27 [facility] Telephone (FAMPWS) Normal 12-27-2019 [facility] [place] JAZLYN GARZON ([id number]) 1965 [facility] Date Time Provider Department (89469) 12/27/19 HUGO NAVA During your visit today, we recorded the following informati on about you: Hugo Nava MD 12/27/2019 9:56 AM Signed 1. Tell her happy birthday 2. Let her know her sleep test is inconclusive. They want us to do an inlab test. Will need preprocedure covid test if done at [facility] Shakir Andino LPN 12/27/2019 2:16 PM Signed TC to pt, left detailed mess age with provider instructions on secure identified voicemail. Schedulers please assist pt with scheduling inlab sleep stud y. Sh[facility]ino LPN [facility] 01/05/2020 3:23 PM Signed Patient has test scheduled at [facility] Shakir Andino LPN 01/05/2020 3:42 PM Signed Order printed and faxed to [facility]. Shakir Andino LPN Allergies As of Date: [...] 3] Other Visit Diagnosis:Hypoxia [R09.02] Order(s):POLYSOMNOGRAM (PSG) [4161456] Order #: [id number] F UTURE PRE-PROCEDURE AND PRE-OPERATIVE COVID [SQPOCOVD] Order #: [id number] FUTURE Prescriptions as of 12/27/2019 Sig: SYNTHROID [...] on 01/05/20 No panel information on 2019-12-26 [employer] study) or an alternative 0 12-26-2019 [facility] (51724) hypopnea sensor (diagnostic study). The duration of [employer] baseline using nasal pressure 12-26-2019 [facility] (84016) (diagnostic study), PAP device flow (titration [employer] Hypopnea definition: The peak 12-26-2019 [facility] (77400) signal excursions drop by =30% of pre-event [employer] duration of the >90% drop in 12-26-2019 [facility] ([facility]) signal excursion is =10 seconds. [employer] (titration study) or an [facility] ([facility]) alternative apnea sensor (diagnostic study). The [employer] baseline using an oronasal 12-26-2019 [facility] ([facility]) thermal sensor (diagnostic study), PAP device flow [employer] Apnea definition: The peak 12-26-2019 [facility] ([facility]) signal excursions drop by >90% of pre-event [employer] Name: JAZLYN GARZON Date of 0 12-26-2019 [facility] ([facility]) Study: 12/14/2019 [facility]#: [id number] [employer] the AASM Manual for Scoring of 12-26-2019 [facility] ([facility]) Sleep and Associated Events version 2.5. [employer] accurate index of respiratory 12-26-2019 [facility] ([facility]) events. The ELIAS is a surrogate of the AHI per [employer] test. Since the home sleep 12-26-2019 [facility] ([facility]) apnea test does not measure sleep, the ELIAS is most [employer] index has been replaced by the 12-26-2019 [facility] ([facility]) respiratory event index for home sleep apnea [employer] events x 60 / TRT (total 0 12-26-2019 [facility] ([facility]) recording time in minutes). Note: the apnea hypopnea [employer] ELIAS definition: Respiratory 12-26-2019 [facility] ([facility]) event index (ELIAS), calculated as respiratory [employer] abdominal effort, and body 12-26-2019 [facility] ([facility]) position. [employer] pressure transducer, snoring 12-26-2019 [facility] ([facility]) via nasal pressure transducer, chest and [employer] rate, oxygen saturation, 0 12-26-2019 [facility] ([facility]) continuous airflow with thermistor and nasal [employer] a registered sleep [address] [place] [address] ([facility]) technologist. The monitored parameters included heart [employer] and was unattended. The [facility] ([facility]) patient was instructed on proper use of the device by [employer] Procedure: This study was 12-26-2019 [facility] ([facility]) performed using a Type III ambulatory PSG device [employer] Sleep procedure: PSG 12-25 [facility] ([facility]) unattended Type III, minimum of 4 parameters (05365) [employer] Medications: Synthroid [facility] ([facility]) [employer] Past medical history: ADHD, 12-26-2019 [facility] ([facility]) GERD, Hypothyroidism, SVT, Obesity [employer] mouth/sore throat. The patient 12-26-2019 [facility] ([facility]) endorses being a habitual side sleeper. [employer] gasping, snorting, multiple 12-26-2019 [facility] ([facility]) awakenings from sleep, and waking up with dry [employer] difficulty initiating sleep, 12-26-2019 [facility] ([facility]) daytime sleepiness, fatigue, waking up choking, [employer] Sleep history: The patient is 12-26-2019 [facility] ([facility]) a 53 year old female with a history of [employer] Referring Provider: HUGO 12-26-2019 [facility] ([facility]) ELIJAH Mailcode: [id number] [employer] time was 407 minutes. By 0 12-26-2019 [facility] ([facility]) convention, sleep is assumed for the whole [employer]visor Age: 53 (: 1965) ESS: 12-26-2019 [facility] ([facility]) Neck Circ. (cm): N/A [employer] 2. Recommend an in-laboratory 12-26-2019 [facility] ([facility]) polysomnogram if sleep apnea remains highly [employer] UVALDO MARIE (12/26/2019 12-26-2019 [facility] ([facility]) 2:40:02 PM) [employer] Report Digitally Signed By: 12-26-2019 [facility] ([facility]) [employer] 12-26-2019 [facility] ([facility]) [employer] [address] [facility] [address], 12-26-2019 [facility] ([facility] [place]) [place] [address] [employer] I attest that I have performed 12-26-2019 [place] [address]) epoch by epoch review of the entire raw data. [employer] Uvaldo Mraie MD 12-26-2019 [facility] ([facility]) [employer] INTERPRETING PHYSICIAN: [facility] ([facility]) [employer] to hypoventilation or a [facility] ([facility]) cardiopulmonary cause. [employer] hypoxemia represents true 12-26-2019 [facility] ([facility]) hypoxemia or artifact, and whether hypoxemia is due [employer]visor with end-tidal CO2 monitoring 12-26-2019 [facility] ([facility]) (EtCO2) may help to determine if the finding of [employer] this represents true hypoxemia 12-26-2019 [facility] ([facility]) or technical artifact. An in-lab sleep study [employer] majority of the study [facility] ([facility]) demonstrating oximetry below 88%. It is uncertain if [employer] 3. Hypoxemia was noted, even 12-26-2019 [facility] ([facility]) in the absence of respiratory events, with the [employer] suspected. 12-26-2019 [facility] ([facility]) [employer] ; Fax: 0 12-26-2019 [facility] ([facility]) [employer] observed in the supine [facility] ([facility]) position. [employer]visor only be measured on an [facility] ([facility]) in-laboratory polysomnogram. The patient was not [employer] apnea as HSAT does not measure 12-26-2019 [facility] ([facility]) certain types of respiratory events that can [employer] 1. This study neither confirms 12-26-2019 [facility] ([facility]) nor refutes a diagnosis of obstructive sleep [employer] Supervisor IMPRESSION/RECOMMENDATIONS: 12-26-2019 [facility] ([facility]) [employer] Supervisor Sleep Disorder, Unspecified 12-26-2019 [facility] ([facility]) [G47.9] [employer] Supervisor Primary Snoring [R06.83] 0 12-26-2019 [facility] ([facility]) [employer] Supervisor Sleep Related Hypoxia [G47.34] 12-26-2019 [facility] ([facility]) [employer] Supervisor ICSD DIAGNOSIS: 12-26-2019 [facility] ([facility]) [employer] Supervisor The average heart rate was 76 12-26-2019 [place] [address]) bpm with a range of 31 bpm to 112 bpm. [employer] Supervisor ECG DATA: 12-26-2019 [facility] ([facility]) [employer] Supervisor Total 407.0 min 3.7 2019 [facility] ([facility]) [employer] Supervisor Off-Supine 407.0 min 3.7 0 12-26-2019 [facility] ([facility]) [employer] Supervisor Supine 0.0 min -- 12-26-19 [facility] ([facility]) [employer] Supervisor Time ELIAS/AHI 12-26-2019 [facility] ([facility]) [employer] Supervisor recording time). 0 [facility] ([facility]) [employer] Supervisor equal to 4% oxygen 020 [facility] ([facility]) desaturation from pre-event baseline. [employer] Supervisor minutes at oxygen saturation 12-26-2019 [facility] ([facility]) measured less than 90% (93.9% of recording time) [employer] Supervisor 86.0%, with a minimum oxygen 12-26-2019 [facility] ([facility]) saturation of 82.0%. The patient spent 382.1 [employer] Supervisor per hour of study time. The 12-26-2019 [facility] ([facility]) mean oxygen saturation during the study was Fish [employer] Processing Supervisor central) and 20 hypopneas. The 12-26-2019 [facility] ([facility]) respiratory event index (ELIAS) was 3.7 events [employer] Supervisor these events, the total number 12-26-2019 [facility] ([facility]) of apneas was 5 (2 obstructive, 0 mixed, and 3 [employer] Supervisor recording. Snoring was noted. 12-26-2019 [facility] ([facility]) There was a total of 25 respiratory events. Of [employer] Supervisor [facility] Sleep [facility] ([facility]) Disorders Center at [facility] [employer] Supervisor The study started at 00:04:00 12-26-2019 [facility] ([facility]) and ended at 06:50:48 and the total recording [employer] Supervisor Home Sleep Apnea Test (HSAT) 12-26-2019 [facility] ([facility]) Study Report [employer] Supervisor RESPIRATORY DATA: 12-26-19 [facility] ([facility]) [employer] Supervisor the =30% drop in signal [facility] ([facility]) excursion is =10 seconds. There is a greater than or [employer] B[employer] Processing Supervisor and 360.4 minutes at oxygen 12-26-2019 [facility] ([facility]) saturation measured at or less than 88% (88.6% of cnpn on 2019 CNPN Telephone [facility] Normal 2019 [facility] JAZLYN GARZON ([id number]) 1965 [facility] Time Provider Department ([id number]) 12/25/19 HUGO NAVA During your visit today, [...] Hives Date Reviewed: 08/21/2019 Reviewed by: Ofe ([facility]) Yoel - Fully Assessed Reason for Visit: [...] 12/25/19 progress on 2019-11 PROGRESS HNO ID: [id number] Normal 12-18-2019 [facility] Author: Debra Jasso [facility] ([id number]) Service: ? Author Type: ? Type: Progress Notes Filed: 12/18/2019 6:39 PM Note Text: Sleep Study Check-In Documentation Date: December 18, 2019 Name: Jazlyn Garzon Comments: HST was returned in working order with all sleep q uestionnaires Debra Jasso [facility] progress on 2019-11 PROGRESS HNO ID: [id number] Normal 12-12-2019 [facility] Author: Carmen Jenkins [facility] ([id number]) Service: ? Author Type: ? Type: Progress Notes Filed: 12/18/2019 6:39 PM Note Text: NOMAD #[id number] Date shipped out 12/11 [employer] MAIL OUT TRACKING NUMBER [id number] [employer] RETURN TRACKING NUMBER [id number] PROGRESS HNO ID: [id number] Normal 12-12-2019 [facility] Author: Dalton Valdez III [facility] ([id number]) Service: ? Author Type: Physician Type: Progress [...] suspected with comorbid medical or sleep disorders: Meluvndm-pz-rytbam pulmonary disease Sleep study to be performed: [...] PhD 10:30 AM, 12/12/2019 PROGRESS HNO ID: [id number] Normal 12-12-2019 [facility] Author: Carmen Dixon ([id number]) Service: ? Author Type: ? Type: Progress Notes Filed: 12/18/2019 6:39 PM Note Text: Spoke with Ben Michael. He stated patient is okay to have HSAT because she only needs it for diagnostic purposes for her physician to have on record. PROGRESS HNO ID: [id number] [place] 12-12-2019 [facility] Author: Carmen Dixon ([id number]) Service: ? Author Type: ? Type: Progress Notes Filed: 12/18/2019 6:39 PM Note Text: December 12, 2019 An order has been received for Home Sleep Apnea Test (HSAT) from brittany Rodriguez. [facility] Staff. Visit prep complete. Comments :No The sleep study is scheduled for 12/12. Insurance: Payor: [facility] MEDICAID / Plan: [facility] ICAID / Product Type: Medicaid / Payor/Plan Subscr Sex Relation Sub. Ins. ID Effective Gr oup Num 1. [place] JAZLYN GARZON Antonieta 1965 Female Self [id number] 05/27/16 [facility] [address] Carmen Jenkins progress on 2019-11 PROGRESS HNO ID: [id number] [place] 12-11-2019 [facility] Author: Antonieta Esqueda (Gregorio) Marcial Dixon ([id number]) Service: ? Author Type: Physician Cable Driller Type: Progress Notes Filed: 12/11/2019 9:12 AM [...] elevated from las t Seeing Treva in [place]: satisfied with care: thinks low te stosterone [...] Abs Lymph 1.00 - 4.00 k/uL 3.59 [place]% % 8.5 Abs [place] <0.87 k/uL 1.01 (H) Eosin% % 2.4 [...] stroke - Colon Cancer Father age 64 [place] - Diabetes Father Type 2 - Hypertension Father - Coronary Artery Disease Father Hx of [place] - Thyroid Sister hx of parathyroid disease/ [...] * *Final Report* * * Normal 12-04-2019 [facility] TRANSVAG DATE OF EXAM: Dec 04 2019 7:40AM [facility] ([id number]) WRU 1060 - US FEMALE PELVIS TRANSVAG [...] . Six-month follow-up pelvic ultrasound is recommended. Upholsterer Outside: JEANNA Transcribe Date/Time: Dec 04 2019 7:53A Dictated by : HAZEL TSE MD This examination was interpreted and the report reviewed and electronically signed by: HAZEL TSE MD on Dec 04 2019 7:55AM EST [id number] tsh on 2019-12-04 TSH Qn 3.940 0.270-4.200 uU/mL Normal 12-04-2019 [facility] ([id number]) Comment: Performed By: #### DHEAS, TD, PROG, E2 #### [facility] [address] [place], [place] [address] #### EST #### [facility] [employer] [address] [place] [address] [phone] testosterone, tot/fr on 2019-12-04 Testosterone [Mass/Vol] 20 8-60 ng/dL Normal 2019 [facility] ([id number]) Comment: Result Comment: (NOTE) ADDITIONA L INFORMATION Testing performed by Liquid Chromatography-Tandem Mass Spectrometry (LC-MS/MS). This test was developed and its performance characteristics determined by [facility] in a manner consistent with CLIA requirements. This test has not been cleared or approved by the U.S. Food and Drug Admin istration. Performed By: #### TFTEST ## ## [facility] [address] [place] [place] [address] Testosterone, Free 0.22 0.06-0.92 ng/dL Normal 12-04-2019 [facility] (28764) Comment: Result Comment: (NOTE) ADDITIONA L INFORMATION Testing performed by [facility]. This test was developed and its performance characteristics determined by [facility] in a manner consistent with CLIA requirements. This test has not been cleared or approved by the U.S. Food and Drug Admin istration. Performed By: #### TFTEST ## ## [facility] [address] [place] [address] progress on 2019-11 PROGRESS HNO ID: [id number] Normal 12-04-2019 [facility] Author: Mireya Leon) Renae [facility] ([id number]) Service: ? Author Type: Title I Teacher Type: Progress Notes Filed: 12/04/2019 7:41 AM [...] progesterone on Progesterone 0.2 ng/mL Normal 12-04-2019 [facility] (15968) Comment: Result Comment: Menstrual Cy soy Progesterone Reference Ranges: Follicular:<1.0 ng/mL Ovulation:<12.1 ng/mL Luteal:1.8 to 23.9 ng/mL Progesterone Refer ence Ranges vary by gestational period: First Trimester:11.0 to 44.3 ng/mL Second Trimester:25.4 to >60 .0 ng/mL Third Trimester:58.7 to >60. 0 ng/mL Post menopausal Progesterone :<0.5 ng/mL Reference: 1. Progesterone ( Progesterone III) [package insert V 1.0 Austrian]. [employer], [place], [place]. January 2015. Performed By: #### DHEAS, TD, PROG, E2 #### [facility] [place] [phone] #### EST #### [facility] [address] [place], [place] [id number] [phone] lipid panel, basic on 2019-12-04 Cholesterol [Mass/Vol] 125 <200 mg/dL Normal 020 [facility] (81885) Comment: Result Comment: <200 mg/dL, Desirable 200-239 mg/dL, Borderline hi gh >239 mg/dL, High Performed By: #### DHEAS, TD, PROG, E2 #### [facility] [place] [phone] #### EST #### [facility] [address] [place] [phone] Cholesterol in HDL [Mass/Vol] 37 >39 mg/dL Low 12-04-2019 [facility] (01008) Comment: Result Comment: 40-59 mg/dL, Acceptable >59 mg/dL, High: Negative ri sk factor for coronary heart disease <40 mg/dL, Low: Positive ris k factor for coronary heart disease Performed By: #### DHEAS, TD, PROG, E2 #### [place] [phone] #### EST #### [facility] [address] [place], [place] [id number] [phone] Cholesterol in LDL 68 <100 mg/dL Normal 12-04-2019 [facility] [Mass/Vol] [facility] (66188) Comment: Result Comment: <100 mg/dL, Optimal 100-129 mg/dL, Near optimal/ above optimal 130-159 mg/dL, Borderline hi gh 160-189 mg/dL, High >189 mg/dL, Very high Secondary prevention optimal LDL Cholesterol levels are recommended to be < 70 mg/dL Performed By: #### DHEAS, TD, PROG, E2 #### [facility] [address] [place] [address] #### EST #### [facility] [address] [place] [address] [phone] Fasting Time 12 hrs Normal 12-04-2019 [facility] (14803) Comment: Performed By: #### DHEAS, TD, PROG, E2 #### [facility] [address] [place] [phone] #### EST #### [facility] [address] [place] [address] [phone] LDL:HDL Ratio 1.84 <2.54 Normal 12-04-2019 [facility] (47271) Comment: Result Comment: Reference: 1. National Cholesterol Educ ation Program ATP III Guideline At-A-Glance Quick Desk Reference: National Heart, Lung, and Blood Fortine. National Institutes of Health. 2001: NIH Publication No. 01-3305. 2. An International Atherosc lerosis Society position paper: global recommendations for the management of dyslipidemia: executive summary, Atherosclerosis. 2014: 232(2):410-413. Performed By: #### DHEAS, TD, PROG, E2 #### [facility] [address] [place] [address] #### EST #### [facility] [address] [place] [address] [phone] Non HDL Cholesterol 88 <130 mg/dL Normal 12-04-2019 [facility] (14971) Comment: Result Comment: <130 mg/dL, Optimal 130-159 mg/dL, Near optimal/ above optimal 160-189 mg/dL, Borderline hi gh 190-219 mg/dL, High >219 mg/dL, Very high Secondary prevention optimal non HDL Cholesterol levels are recommended to be < 100 mg/dL Performed By: #### DHEAS, TD, PROG, E2 #### [place] [address] #### EST #### [facility] [address] [place] [address] [phone] TC:HDL Ratio 3.38 <5.10 Normal 12-04-2019 [facility] (56569) Comment: Performed By: #### DHEAS, TD, PROG, E2 #### [place] [phone] #### EST #### [place] [address] [phone] Triglyceride [Mass/Vol] 102 <150 mg/dL Normal 2019 [facility] (04496) Comment: Result Comment: <150 mg/dL, Normal 150-199 mg/dL, Borderline hi gh 200-499 mg/dL, High >499 mg/dL, Very high Performed By: #### DHEAS, TD, PROG, E2 #### [place] [address] #### EST #### [facility] [address] [place] [address] [phone] VLDL Cholesterol 20 <30 mg/dL Normal 12-04-2019 [facility] (50708) Comment: Performed By: #### DHEAS, TD, PROG, E2 #### [place] [address] #### EST #### [facility] [address] [place], [place] [phone] hemoglobin a1c on HbA1c (Bld) [Mass fraction] 126 mg/dL Normal [facility] (00061) Comment: Result Comment: eAG: (Estima geoff average glucose) is a calculated value from HgbA1c and is customer engagement representative of the average blood glucose level in the last 2-3 month period. Performed By: #### DHEAS, TD, PROG, E2 #### [facility] [address] [place], [place] [address] #### EST #### [facility] [address] [place] [address] [phone] HbA1c (Bld) [Mass fraction] 6.0 4.3-5.6 % High [facility] (43701) Comment: Result Comment: [place] Antonette betes Association guidelines indicate that patients with HgbA1c in the range 5.7-6.4% are at increased risk for development of diabetes, and intervention by lifestyle modification may be beneficial. HgbA1c greater o r equal to 6.5% is considered diagnostic of diabetes. Performed By: #### DHEAS, TD, PROG, E2 #### [facility] [address] [place] [address] #### EST #### [facility] [address] [place] [address] [phone] free t4 on Free T4 [Mass/Vol] 1.2 0.9-1.7 ng/dL Normal 12-04-2019 [facility] (06678) Comment: Performed By: #### FREET3, F T4 ####[facility] [address] [place], [place] [phone] free t3 on Free T3 [Mass/Vol] 2.8 2.3-4.1 pg/mL Normal 12-04-2019 [facility] (58235) Comment: Performed By: #### FREET3, F T4 #### [facility] [address] [place] [address] estrone on Estrone 18.4 pg/mL Normal 12-04-2019 [facility] (39528) Comment: Result Comment: (NOTE) Females: Pre-menopausal: Early follic ular <150.0 pg/mL Pre-menopausal: Late follicu lar 100.0-250.0 pg/mL Pre-menopausal: Luteal <200. 0 pg/mL Post-menopausal 3.0-32.0 pg/ mL REFERENCE INTERVAL: Estrone by TMS Access complete set of age- and/or gender-specific reference intervals for this test in t [employer] [facility] Test Directory ([employer]). Test developed and character istics determined by [employer]. See Compliance Statement B: [employer]/CS Performed By: [facility] [address] [place] [address] Radioactivity Technician: Wilner Rosa MD, MS Performed By: #### DHEAS, TD, PROG, E2 #### [facility] [address] [place] [address] #### EST #### [facility] [address] [place] [address] [phone] estradiol-17b on 13-12-09 Estradiol-17B <25 Normal 12-04-2019 [facility] (21432) Comment: Result Comment: This test is not [...] E2 (Estradiol III) [package insert V 3.0 Austrian]. [employer], [place], [place], September 2015. Performed By: #### DHEAS, TD, PROG, E2 #### [facility] [address] [place], [place] [address] #### EST #### [facility] [address] [place] [address] [phone] comp metabolic panel on 2019-12-04 Albumin [Mass/Vol] 4.0 3.9-4.9 g/dL Normal 12-04-2019 [facility] (53980) Comment: Performed By: #### DHEAS, TD, PROG, E2 #### [place] [phone] #### EST #### [facility] [address] [place] [address] [phone] ALP [Catalytic activity/Vol] 82 34-123 U/L Normal 0 12-04-2019 [facility] (62673) Comment: Performed By: #### DHEAS, TD, PROG, E2 #### [place] [phone] #### EST #### [facility] [address] [place], [place] [phone] ALT [Catalytic activity/Vol] 24 7-38 U/L Normal 0 12-04-2019 [facility] (94568) Comment: Performed By: #### DHEAS, TD, PROG, E2 #### [place] [phone] #### EST #### [facility] [address] [place], [place] [id number] [phone] Anion gap [Moles/Vol] 9 9-18 mmol/L Normal 12-04-19 [facility] (46342) Comment: Performed By: #### DHEAS, TD, PROG, E2 #### [place] [address] #### EST #### [facility] [address] [place], [place] [id number] [phone] AST [Catalytic activity/Vol] 16 13-35 U/L Normal 0 12-04-2019 [facility] (21484) Comment: Performed By: #### DHEAS, TD, PROG, E2 #### [facility] [address] [place] [phone] #### EST #### [facility] [address] [place] [address] [phone] Bilirubin [Mass/Vol] <0.2 0.2-1.3 mg/dL Low 0 [facility] (81991) Comment: Performed By: #### DHEAS, TD, PROG, E2 #### [facility] [place] [phone] #### EST #### [facility] [address] [place] [address] [phone] Calcium [Mass/Vol] 9.4 8.5-10.2 mg/dL Normal 12-04-2019 [facility] (12291) Comment: Performed By: #### DHEAS, TD, PROG, E2 #### [place] [phone] #### EST #### [facility] [address] [place] [address] [phone] Chloride [Moles/Vol] 103 97-105 mmol/L Normal 0 [facility] (66929) Comment: Performed By: #### DHEAS, TD, PROG, E2 #### [place] [phone] #### EST #### [facility] [address] [place] [address] [phone] CO2 [Moles/Vol] 26 22-30 mmol/L Normal 12-04-2019 [facility] (44224) Comment: Performed By: #### DHEAS, TD, PROG, E2 #### [place] [phone] #### EST #### [facility] [address] [place] [address] [phone] Creatinine [Mass/Vol] 0.79 0.58-0.96 mg/dL Normal 12-04-19 20 [facility] (91789) Comment: Performed By: #### DHEAS, TD, PROG, E2 #### [facility] [address] [place] [address] #### EST #### [facility] [address] [place] [address] [phone] eGFR- Amer. >60 Normal 12-04-2019 [facility] (85903) Comment: Performed By: #### DHEAS, TD, PROG, E2 #### [facility] [address] [place] [address] #### EST #### [facility] [address] [place] [address] [phone] GFR/1.73 sq M predicted >60 mL/min/{1.73_m2} Normal 12-04-2019 [facility] among non-blacks [facility] (52819) (S/P/Bld) [Vol rate/Area] Comment: Result Comment: eGFR [...] By: #### DHEAS, TD, PROG, E2 #### [facility] [address] [place] [phone] #### EST #### [facility] [address] [place] [address] [phone] Glucose [Mass/Vol] 141 74-99 mg/dL High 12-04-2019 [facility] (35147) Comment: Result Comment: The [place] Diabetes Association (ADA) provides guidance for cutoff [...] for diagnosis of diabetes. Reference: Standards of [facility] Care in Diabetes 2016, [place] Diabetes Association. Diabetes Care. 2016.39(Suppl 1). Performed By: #### DHEAS, TD, PROG, E2 #### [facility] [place] [phone] #### EST #### [facility] [address] [place] [address] [phone] Potassium [Moles/Vol] 3.7 3.7-5.1 mmol/L Normal 12-04-19 [facility] (53885) Comment: Performed By: #### DHEAS, TD, PROG, E2 #### [facility] [address] [place] [phone] #### EST #### [facility] [address] [place] [address] [phone] Protein [Mass/Vol] 6.6 6.3-8.0 g/dL Normal 12-04-2019 [facility] (56644) Comment: Performed By: #### DHEAS, TD, PROG, E2 #### [facility] [address] [place] [phone] #### EST #### [facility] [address] [place] [address] [phone] Sodium [Moles/Vol] 138 136-144 mmol/L Normal 12-04-2019 [facility] (82991) Comment: Performed By: #### DHEAS, TD, PROG, E2 #### [facility] [place] [phone] #### EST #### [facility] [address] [place] [address] [phone] Urea nitrogen [Mass/Vol] 9 7-21 mg/dL Normal 12-03 [facility] (18369) Comment: Performed By: #### DHEAS, TD, PROG, E2 #### [place] [phone] #### EST #### [facility] [address] [place] [address] [phone] cbc and differential on 2019-12-04 Abs Baso 0.06 <0.11 k/uL Normal 12-04-2019 [facility] (70603) Comment: Performed By: #### DHEAS, TD, PROG, E2 #### [place] [phone] #### EST #### [facility] [address] [place] [address] [phone] Abs [place] 1.01 <0.87 k/uL High 12-04-2019 [facility] (07579) Comment: Performed By: #### DHEAS, TD, PROG, E2 #### [place] [phone] #### EST #### [facility] [address] [place] [address] [phone] Abs Neut 6.96 1.45-7.50 k/uL Normal 12-04-2019 [facility] (93176) Comment: Performed By: #### DHEAS, TD, PROG, E2 #### [place] [phone] #### EST #### [facility] [address] [place] [address] [phone] Absolute nRBC <0.01 <0.01 Normal 12-04-2019 [facility] (89532) Comment: Performed By: #### DHEAS, TD, PROG, E2 #### [facility] [address] [place] [phone] #### EST #### [facility] [address] [place] [address] [phone] Basophils/100 WBC (Bld) 0.5 % Normal 2019 [facility] (62542) Comment: Performed By: #### DHEAS, TD, PROG, E2 #### [facility] [address] [place] [phone] #### EST #### [facility] [address] [place] [address] [phone] DTYPE Auto Diff Normal 12-04-2019 [facility] (86039) Comment: Performed By: #### DHEAS, TD, PROG, E2 #### [facility] [address] [place] [phone] #### EST #### [facility] [address] [place] [address] [phone] Eosinophils (Bld) [#/Vol] 0.29 <0.46 k/uL Normal 11-24 [facility] (50379) Comment: Performed By: #### DHEAS, TD, PROG, E2 #### [facility] [address] [place] [phone] #### EST #### [facility] [address] [place] [address] [phone] Eosinophils/100 WBC (Bld) 2.4 % Normal 11-24 [facility] (92619) Comment: Performed By: #### DHEAS, TD, PROG, E2 #### [facility] [address] [place] [phone] #### EST #### [facility] [address] [place] [address] [phone] Erythrocyte distribution 12.4 11.5-15.0 % Normal 12-03 [facility] width (RBC) [Ratio] [facility] (33108) Comment: Performed By: #### DHEAS, TD, PROG, E2 #### [facility] [address] [place] [phone] #### EST #### [facility] [address] [place], [place] [phone] Hematocrit (Bld) [Volume 46.8 36.0-46.0 % High 12-03 [facility] fraction] [facility] (58188) Comment: Performed By: #### DHEAS, TD, PROG, E2 #### [facility] [address] [place] [phone] #### EST #### [facility] [address] [place] [address] [phone] Hemoglobin (Bld) 15.4 11.5-15.5 g/dL Normal 12-04-2019 [facility] [Mass/Vol] [facility] (12904) Comment: Performed By: #### DHEAS, TD, PROG, E2 #### [facility] [address] [place] [phone] #### EST #### [facility] [address] [place] [address] [phone] Lymphocytes (Bld) [#/Vol] 3.59 1.00-4.00 k/uL Normal 11-24 [facility] (18992) Comment: Performed By: #### DHEAS, TD, PROG, E2 #### [facility] [address] [place] [phone] #### EST #### [facility] [address] [place] [address] [phone] Lymphocytes/100 WBC (Bld) 30.1 % Normal 11-24 [facility] (35794) Comment: Performed By: #### DHEAS, TD, PROG, E2 #### [place] [phone] #### EST #### [facility] [address] [place] [address] [phone] MCH (RBC) [Entitic mass] 31.6 26.0-34.0 pG Normal 12-03 [facility] (59744) Comment: Performed By: #### DHEAS, TD, PROG, E2 #### [facility] [place] [phone] #### EST #### [facility] [address] [place] [phone] MCHC (RBC) [Mass/Vol] 32.9 30.5-36.0 g/dL Normal 12-04-19 [facility] (81064) Comment: Performed By: #### DHEAS, TD, PROG, E2 #### [place] [phone] #### EST #### [facility] [address] [place] [address] [phone] MCV (RBC) [Entitic vol] 96.1 80.0-100.0 fL Normal 12-03 [facility] (31826) Comment: Performed By: #### DHEAS, TD, PROG, E2 #### [place] [phone] #### EST #### [facility] [address] [place] [address] [phone] Monocytes/100 WBC (Bld) 8.5 % Normal 2019 [facility] (47822) Comment: Performed By: #### DHEAS, TD, PROG, E2 #### [facility] [address] [place] [phone] #### EST #### [facility] [address] [place] [address] [phone] Neutrophils/100 WBC (Bld) 58.5 % Normal 11-24-2019 [facility] (27887) Comment: Performed By: #### DHEAS, TD, PROG, E2 #### [facility] [place] [phone] #### EST #### [facility] [address] [place] [address] [phone] NRBCs 0.0 0 /100 WBC Normal 12-04-2019 [facility] (72520) Comment: Performed By: #### DHEAS, TD, PROG, E2 #### [place] [phone] #### EST #### [facility] [address] [place] [phone] Platelet mean volume 9.7 9.0-12.7 fL Normal 0 [facility] (Bld) [Entitic vol] (71051) Comment: Performed By: #### DHEAS, TD, PROG, E2 #### [place] [address]85650 [place] [phone] #### EST #### [facility] [address] [place] [address] [phone] Platelets (Bld) [#/Vol] 302 150-400 k/uL Normal 2019 [facility] (27302) Comment: Performed By: #### DHEAS, TD, PROG, E2 #### [place] [phone] #### EST #### [facility] [address] [place] [address] [phone] RBC (Bld) [#/Vol] 4.87 3.90-5.20 m/uL Normal 12-04-2019 [facility] (81887) Comment: Performed By: #### DHEAS, TD, PROG, E2 #### [facility] [address] [place], [place] [address] #### EST #### [facility] [address] [place] [address] [phone] WBC (Bld) [#/Vol] 11.91 3.70-11.00 k/uL High 12-04-2019 [facility] (87103) Comment: Performed By: #### DHEAS, TD, PROG, E2 #### [facility] [address] [place], [place] [address] #### EST #### [facility] [address] [place] [address] [phone] progress on 2019-10 PROGRESS HNO ID: [id number] Normal 10-30-2019 [facility] Author: Hugo Nava [facility] ([id number]) Service: ? Author Type: Physician Type: Progress [...] are being torn off of her bones. [place] week and exhausted Had a sour taste [...] stroke - Colon Cancer Father age 64 [place] - Diabetes Father Type 2 - Hypertension Father - Coronary Artery Disease Father Hx of [place] - Thyroid Sister hx of parathyroid disease/ [...] diagnosis) -doing great. Continue to follow with crucible packer. 2. Thickened endometrium - ICD9: 793.5, ICD10: [...] more than 50% of the t otal djpl-eh-mkgk time of the visit in counseling / coordination of care. [facility] on 2019-10-30 CNPN Telephone (FAMPWS) Normal 10-30-2019 [facility] JAZLYN GARZON ([id number]) 1965 [facility] Time Provider Department ([id number]) 10/30/19 HGUO NAVA During your visit today, we recorded the following informati on about you: Jazlyn Garcia Ma 10/30/2019 3:29 PM Signed Hugo Gutiérrez [facility] ? Set up us in one month. Set up follow up appt in three or 4 months. Can be f2f or vi rtual Mireya Pina Pss 10/31/2019 10:25 AM Signed Contacted patient and scheduled appts. Mireya Pina Pss Allergies As of Date: 10/30/2019 Noted [...] Hives Date Reviewed: 08/21/2019 Reviewed by: Ofe ([facility]) Yoel - Fully Assessed Reason for Visit: [...] TSH Qn 2.760 0.270-4.200 uU/mL Normal 10-24-2019 [facility] (83308) Comment: Performed By: #### DHEAS, TD, PROG, E2 #### [facility] [address] [place] [address] #### EST #### [facility] [address] [place] [address] [phone] cnpn on 2019-10-24 CNPN Telephone (FAMPWS) Normal 10-24-2019 [facility] JAZLYN Jones ([id number]) 1965 [facility] Date Time Provider Department (71625) 10/24/19 HUGO NAVA [facility] During your visit today, we recorded the [...] Hives Date Reviewed: 08/21/2019 [facility]ed [facility]: [facility] Yoel - Fully Assessed Reason for Visit: Lab Orders [1688] Primary Visit Diagnosis:Hypothyroidism, acquired [E03.9] Order(s):TSH BLD [SQTSH] Order #: [id number] FUTURE Prescriptions as of 10/24/2019 Sig: ESCITALOPRAM [...] 10/24/19 progress on 2019-09 PROGRESS HNO ID: [id number] Normal 09-29-2019 [facility] Author: Hugo Nava [place] ([id number]) Service: ? Author Type: Physician Type: Progress [...] are being torn off of her bones. [place] week and exhausted Had a sour taste [...] stroke - Colon Cancer Father age 64 [place] - Diabetes Father Type 2 - Hypertension Father - Coronary Artery Disease Father Hx of [place] - Thyroid Sister hx of parathyroid disease/ [...] her to avoid using and follow with crucible packer. Fernandoy man. Follow up in one month or prn. Hugo Nava MD us female pelvis transvag on 2019-09-28 US FEMALE PELVIS * * *Final Report* * * Normal 09-28-2019 [facility] TRANSVAG DATE OF EXAM: Sep 28 2019 7:55AM [facility] ([id number]) WRU 1060 - US FEMALE PELVIS TRANSVAG [...] of free fluid or pathologic adnexal mass Upholsterer Outside: PSCB Transcribe Date/Time: Sep 28 2019 9:30A Dictated by : GLADIS BREEN MD This examination was interpreted and the report reviewed and electronically signed by: GLADIS BREEN MD on Sep 28 2019 9:34AM EST [id number] progress on 2019-09 PROGRESS HNO ID: [id number] Normal 09-28-2019 [facility] Author: Michelle Bo (Tech) [facility] ([id number]) Service: ? Author Type: Thermodynamics Teacher Type: Progress Notes Filed: 09/28/2019 7:46 AM [...] on 2019-09-28 DHIRAJN Telephone (OBGYWM) Normal 09-28-2019 [facility] JAZLYN GARZON ([id number]) 1965 [facility] Time Provider Department ([id number]) 09/28/19 OFE GARCIA) OBGYWM During your visit [...] Hives Date Reviewed: 08/21/2019 Reviewed by: Ofe ([facility]) Yoel - Fully Assessed Reason for Visit: Results [95] Primary Visit Diagnosis:Endometrial thickening on ultrasound [R93.89] Order(s):PELVIC US [facility] [[id number]] Order #: [id number]: 1 Prescriptions as of 09/28/2019 Sig: ESCITALOPRAM [...] 09/28/19 progress on 2019-08 PROGRESS HNO ID: [id number] Normal 09-15-2019 [facility] Author: Hugo Nava Dixon ([id number]) Service: ? Author Type: Physician Type: Progress [...] are being torn off of her bones. [place] week and exhausted Had a sour taste [...] had bleeding. Has declined endometrial biopsy but crucible packer is following her ble eding. Has seen multiple providers including cardio, endo, gi, surg alberto, crucible packer, neurology, rheumatology has had extensive work up [...] stroke - Colon Cancer Father age 64 [place] - Diabetes Father Type 2 - Hypertension Father - Coronary Artery Disease Father Hx of [place] - Thyroid Sister hx of parathyroid disease/ [...] of hormones. Encouraged to follow up with crucible packer. 5. Anxiety - ICD9: 300.00, ICD10: F41.9 - Discussed risks and benefits of new medication with the raymond vale. Advised them to call if any side effects or questions. - follow up in two weeks. - ESCITALOPRAM 10 MG TABLET 6. Hormone disturbance - ICD9: 259.9, ICD10: E34.9 - defer to crucible packer/enco Hugo Nava MD RTO in two weeks. and prn. I spent 30 minutes in the visit, with more than 50% of the t otal zlhx-hg-qzzn time of the visit in counseling / coordination of care. period and volume o n 2019-09-11 Period 24 hr Normal 09-11-2019 [facility] (09616) Comment: Performed By: #### TFTEST ## ## [facility] perior [address] [place] [address] Volume 3200 mL Normal 09-11-2019 [facility] (82423) Comment: Performed By: #### TFTEST ## ## [facility] per[address] [place] [address] hiaa, urine, 24 hour on 2019-09-11 HIAA, Urine, 24 Hour 3.8 0.0-8.0 mg/24hrs Normal 0 [facility] (69348) Comment: Result Comment: This test wa s developed and its performance characteristics determined by [facility]'s [facility] ( [facility]). It has not been cleared or a pproved by the FDA. [facility] is regulated under CLIA as qualified to perform high complexity testing. This test is used for clinic al purposes. It should not be regarded as investigational or for research. Performed By: #### TFTEST ## ## [facility] per[facility] [address] [place] [address] vitamin b6 plasma o n 2019-09-06 Vitamin B6 Plasma 22.0 20.0-125.0 nmol/L Normal 09-06-2019 [facility] (52805) Comment: Result Comment: (NOTE) INTERPRETIVE INFORMATION: Vi tamin B6 (Pyridoxal 5-Phosphate) Pyridoxal 5'-phosphate measu red in a specimen collected following an 8-hour or overnight fast accurately indicates vitamin B6 nutritional status. Non-fast ing specimen concentration reflects recent vitamin intake. Test developed and character istics determined by [employer]. See Compliance Statement B: [facility]/CS Performed by [facility] , [address] [place] [address] 8410 www.[employer], Wilner Saenz do, MD, Lab. Director Performed By: #### FERR, SER FOL, IRON, PROG, B12, E2 ####[facility] [address] [place], [place] [phone]#### EST, VITB6 ####[facility] [address] [place], [place] [phone] vitamin b12 on 2019 Cobalamin (Vitamin B12) 654 985-8816 pg/mL Normal 2019 [facility] [Mass/Vol] [facility] (94279) Comment: Performed By: #### FERR, SER FOL, IRON, PROG, B12, E2 ####[facility] [address] [place], [place] [phone]#### EST, VITB6 ####[facility] [address] [place], [place] [phone] testosterone, tot/fr on 2019-09-06 Testosterone [Mass/Vol] 23 8-60 ng/dL Normal 2019 [facility] (79730) Comment: Result Comment: (NOTE) ADDITIONA L INFORMATION Testing performed by Liquid Chromatography-Tandem Mass Spectrometry (LC-MS/MS). This test was developed and its performance characteristics determined by [facility] in a manner consistent with CLIA requirements. This test has not been cleared or approved by the U.S. Food and Drug Admin istration. Performed By: #### TFTEST ## ## [facility] [address] [place], [place] [id number] Testosterone, Free 0.25 0.06-0.92 ng/dL Normal 09-06-2019 [facility] (43634) Comment: Result Comment: (NOTE) ADDITIONA L INFORMATION Testing performed by [facility]. This test was developed and its performance characteristics determined by [facility] in a manner consistent with CLIA requirements. This test has not been cleared or approved by the U.S. Food and Drug Admin istration. Performed By: #### TFTEST ## ## [facility] [address] [place] [address] progesterone on 202 Progesterone 0.4 ng/mL Normal 09-06-2019 [facility] (79257) Comment: Result Comment: Menstrual Cy soy Progesterone Reference Ranges: Follicular:<1.0 ng/mL Ovulation:<12.1 ng/mL Luteal:1.8 to 23.9 ng/mL Progesterone Refer ence Ranges vary by gestational period: First Trimester:11.0 to 44.3 ng/mL Second Trimester:25.4 to >60 .0 ng/mL Third Trimester:58.7 to >60. 0 ng/mL Post menopausal Progesterone :<0.5 ng/mL Reference: 1. Progesterone ( Progesterone III) [package insert V 1.0 Austrian]. [facility], [place], [place]. January 2015. Performed By: #### FERR, SER FOL, IRON, PROG, B12, E2 ####[facility] [address] [place], [place] [phone]#### EST, VITB6 ####[facility] [address] [place], [place] [phone] iron and tibc on 12-09-12 Iron [Mass/Vol] 126 41-186 ug/dL Normal 09-06-2019 [facility] (40523) Comment: Performed By: #### FERR, SER FOL, IRON, PROG, B12, E2 ####[place] [address] [place], [place] [phone]#### EST, VITB6 ####[facility] [address] [place], [place] [phone] TIBC 402 232-386 ug/dL High 09-06-2019 [facility] (78485) Comment: Performed By: #### FERR, SER FOL, IRON, PROG, B12, E2 ####[place] [address] [place], [place] [phone]#### EST, VITB6 ####[facility] [address] [place], [place] [phone] Transferrin Saturatn 31 15-57 % Normal 0 [facility] (81281) Comment: Performed By: #### FERR, SER FOL, IRON, PROG, B12, E2 ####[place] [address] [place], [place] [phone]#### EST, VITB6 ####[facility] [address] [place], [place] [phone] folate, serum on 12-09-12 Folate [Mass/Vol] 10.6 >4.7 ng/mL Normal 09-06-2019 [facility] (59747) Comment: Performed By: #### FERR, SER FOL, IRON, PROG, B12, E2 ####[place] [address] [place], [place] [phone]#### EST, VITB6 ####[facility] [address] [place], [place] [phone] ferritin on 2019-08 Ferritin [Mass/Vol] 142.0 14.7-205.1 ng/mL Normal 0 [facility] (49403) Comment: Performed By: #### FERR, SER FOL, IRON, PROG, B12, E2 ####[facility] [address] [place], [place] [phone]#### EST, VITB6 ####[facility] [address] [place], [place] [phone] estrone on Estrone 24.8 pg/mL Normal 09-06-2019 [facility] (95256) Comment: Result Comment: (NOTE) Females: Pre-menopausal: Early follic ular <150.0 pg/mL Pre-menopausal: Late follicu lar 100.0-250.0 pg/mL Pre-menopausal: Luteal <200. 0 pg/mL Post-menopausal 3.0-32.0 pg/ mL REFERENCE INTERVAL: Estrone by [facility] Access complete set of age- and/or gender-specific reference intervals for this test in [facility] Test Directory ([employer]). Test developed and character istics determined by [employer]. See Compliance Statement B: [facility]/CS Performed by [facility] , [address] [place], [place] 84[address] www.[employer], Wilner Saenz do, MD, Lab. Director Performed By: #### FERR, SER FOL, IRON, PROG, B12, E2 ####[facility] [address] [place], [place] [phone]#### EST, VITB6 ####[facility] [address] [place], [place] [phone] estradiol-17b on 12-09-12 Estradiol-17B <25 Normal 09-06-2019 [facility] (94464) Comment: Result Comment: This test is not [...] E2 (Estradiol III) [package insert V 3.0 Austrian]. [facility], [place], [place], September 2015. Performed By: #### FERR, SER FOL, IRON, PROG, B12, E2 ####[facility] [address] [place], [place] [phone]#### EST, VITB6 ####[facility] [address] [place], [place] [phone] progress on 2019-08 PROGRESS HNO ID: [id number] Normal 09-01-2019 [facility] Author: Hugo Nava [facility] Service: ? [facility] Author Type: Physician ([id number]) Type: Progress Notes Filed: 09/01/2019 12:28 PM [...] the office setting and agrees. Used the [email or web address] platform. Seen at [facility] ER on 08/28. Date of Service: 08/29/19 [...] ST c hanges. Troponin is negative. B 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 is normal. LFTs are normal. Chem-7 shows [...] days for another exam. Return to the [facility] for any worsening symptoms. Disposition: To home in improved and stable condition. Impression: 1. Peripheral edema. 2. Sinus tachycardia. This note was generated with [employer] dictation software. It m ay contain incorrect [...] unexpected problems, contact your Primary Care Provider. [facility] ([phone]) or report to the closest Emergency Room. Call 911 if necessary. 08/29/19 1708 Date Willian Duff MD Cosigner Signature (If [...] actually h ad amenorrhea due to PCOS. CHRISTIAN MINISTRIES PROFESSOR and I recommended endometrial biopsy. She h [...] for carcinoid. Reinforced need to follow with crucible packer and endo and to hold on hormone [...] stroke - Colon Cancer Father age 64 [place] - Diabetes Father Type 2 - Hypertension Father - Coronary Artery Disease Father Hx of [place] - Thyroid Sister hx of parathyroid disease/ [...] Reinforced need to follow with endo and crucible packer and follow their recommendations. Suggested we could [...] MD progress on 2019-07 PROGRESS HNO ID: [id number] Normal 08-21-2019 [facility] Author: Ofe Randhawa) [facility] Service: ? [facility] Author Type: Nurse Practitioner ([id number]) Type: Progress Notes Filed: 08/21/2019 9:45 AM [...] stroke - Colon Cancer Father age 64 [place] - Diabetes Father Type 2 - Hypertension Father - Coronary Artery Disease Father Hx of AL - Thyroid Sister hx of parathyroid disease/ [...] on 2019-08-21 MELINDA Telephone (OBGYWM) Normal 08-21-2019 [facility] JAZLYN Jones ([id number]) 1965 F [facility] Date Time Provider Department (52563) 08/21/19 OFE GARCIA (DHIRAJ) OBGYWM During your [...] Hives Date Reviewed: 08/21/2019 Reviewed by: Ofe ([facility]) Yoel - Fully Assessed Reason for Visit: [...] on 08/21/19 DHIRAJN Telephone (OBGYWM) Normal 08-21-2019 [facility] JAZLYN Jones ([id number]) 1965 [facility] Date Time Provider Department (91750) 08/21/19 OFE GARCIA ([facility]) OBGYWM During your visit today, we recorded the following informati on about you: Ofe Garcia APRN.WINDOW MAKER 08/21/2019 9:46 AM Signed Please call pt to schedule pelvic US in 2 months. Thanks, Re anand Garcia APRN.DHIRAJ [facility] 08/23/2019 1:24 PM Signed Completed. Allergies [...] Hives Date Reviewed: 08/21/2019 Reviewed by: Ofe ChaidezFormation Fracturing Operator) Yoel - Fully Assessed Reason for Visit: [...] Refill (OBGYWM) Normal 08-20-2019 [facility] AJZLYN GARZON ([id number]) 1965 [facility] Date Time Provider Department ([id number]) 08/20/19 OFE GARCIA ([facility]) OBGYWM During your visit today, we recorded [...] Hives Date Reviewed: 08/17/2019 Reviewed by: Ofe ([facility]) Yoel - Fully Assessed Reason for Visit: [...] * *Final Report* * * Normal 08-17-2019 [facility] TRANSVAG DATE OF EXAM: Aug 17 2019 11:01AM [facility] ([id number]) WRU 1060 - US FEMALE PELVIS TRANSVAG [...] Simple appearing cyst in the RIGHT ovary Upholsterer Outside: JEANNA Transcribe Date/Time: Aug 17 2019 11:06A Dictated by : ELLY BROWN DO This examination was interpreted and the report reviewed and electronically signed by: ELLY BROWN DO on Aug 17 2019 11:09AM EST [id number] progress on 2019-07 PROGRESS HNO ID: [id number] Normal 08-17-2019 [facility] Author: Ofe Randhawa) [facility] Service: ? [facility] Author Type: Nurse Practitioner ([id number]) Type: Progress Notes Filed: 08/17/2019 2:27 PM [...] HSDD 10/21/2011 - Hypothyroidism should be on FARNCESCO synthroid. - Irregular menstrual cycle Irregular periods [...] stroke - Colon Cancer Father age 64 [place] - Diabetes Father Type 2 - Hypertension Father - Coronary Artery Disease Father Hx of AL - Thyroid Sister hx of parathyroid disease/ [...] 30 mins spent with visit. Ofe Garcia APRN.WINDOW MAKER PROGRESS HNO ID: [id number] Normal 08-17-2019 [facility] Author: Mireya Leon) [facility] Service: ? [facility] Author Type: Title I Teacher ([id number]) Type: Progress Notes Filed: 08/17/2019 11:02 AM [...] TSH Qn 2.720 0.270-4.200 uU/mL Normal 08-16-2019 [facility] (93413) Comment: Performed By: #### DHEAS, TD, PROG, E2 #### [facility] [address] [place], [place] [address] #### EST #### [facility] [address] [place] [address] [phone] testosterone, tot/fr on 2019-08-16 Testosterone [Mass/Vol] 22 8-60 ng/dL Normal 2019 [facility] (84831) Comment: Result Comment: (NOTE) ADDITIONA L INFORMATION Testing performed by Liquid Chromatography-Tandem Mass Spectrometry (LC-MS/MS). This test was developed and its performance characteristics determined by [facility] in a manner consistent with CLIA requirements. This test has not been cleared or approved by the U.S. Food and Drug Admin istration. Performed By: #### TFTEST ## ## [facility] [address] [place] [address] Testosterone, Free 0.22 0.06-0.92 ng/dL Normal 08-16-2019 [facility] (55283) Comment: Result Comment: (NOTE) ADDITIONA L INFORMATION Testing performed by [facility]. This test was developed and its performance characteristics determined by [facility] in a manner consistent with CLIA requirements. This test has not been cleared or approved by the U.S. Food and Drug Admin istration. Performed By: #### TFTEST ## ## [facility] [address] [place] [place] [address] t4/fti on 2019-07-27 2 FTI 5.1 5.3-10.8 ug/dL Low 08-16-2019 [facility] (95336) Comment: Performed By: #### DHEAS, TD, PROG, E2 #### [place] [phone] #### EST #### [facility] [address] [place] [address] [phone] T4 [Mass/Vol] 5.5 5.5-10.2 ug/dL Normal 08-16-2019 [facility] (00325) Comment: Performed By: #### DHEAS, TD, PROG, E2 #### [place] [phone] #### EST #### [facility] [address] [place] [address] [phone] T4 Uptake 1.08 0.91-1.19 Normal 08-16-2019 [facility] (77436) Comment: Performed By: #### DHEAS, TD, PROG, E2 #### [place] [phone] #### EST #### [facility] [address] [place] [address] [phone] t3 on 2019-08-16 T3 102 79-165 ng/dL Normal 08-16-2019 [facility] (20717) Comment: Performed By: #### DHEAS, TD, PROG, E2 #### [address] [place] [phone] #### EST #### [facility] [address] [place] [address] [phone] progress on 2019-07 PROGRESS HNO ID: [id number] Normal 08-16-2019 [facility] Author: Hugo Dixon ([id number]) Service: ? Author Type: Physician Type: Progress [...] therapy. She has seen numerous endo and crucible packer physicians and has been tried on numerous [...] cream that she had gotten fro m crucible packer previously. We had ordered progesterone orally previously [...] metformin with possible pcos. She spoke with crucible packer department who recommended endometrial bi opsy. I [...] stroke - Colon Cancer Father age 64 [place] - Diabetes Father Type 2 - Hypertension Father - Coronary Artery Disease Father Hx of [place] - Thyroid Sister hx of parathyroid disease/ [...] Hypothyroidism, acquired - ICD9: 244.9, ICD10: E03.9 ([facility] diagnosis) - recheck labs. - [...] info from our visit a long to crucible packer. Reiterated to her that I would prefer [...] more than 50% of the t otal zhvp-ws-iomc time of the visit in counseling / coordination of care. progesterone on Progesterone 0.3 ng/mL Normal 08-16-2019 [facility] (48796) Comment: Result Comment: Menstrual Cy soy Progesterone Reference Ranges: Follicular:<1.0 ng/mL Ovulation:<12.1 ng/mL Luteal:1.8 to 23.9 ng/mL Progesterone Refer ence Ranges vary by gestational period: First Trimester:11.0 to 44.3 ng/mL Second Trimester:25.4 to >60 .0 ng/mL Third Trimester:58.7 to >60. 0 ng/mL Post menopausal Progesterone :<0.5 ng/mL Reference: 1. Progesterone ( Progesterone III) [package insert V 1.0 Austrian]. [facility], [place], [place]. January 2015. Performed By: #### DHEAS, TD, PROG, E2 #### [facility] [address] [place], [place] [address] #### EST #### [facility] [address] [place] [address] [phone] estrone on Estrone 23.7 pg/mL Normal 08-16-2019 [facility] ([id number]) Comment: Result Comment: (NOTE) Females: Pre-menopausal: Early follic ular <150.0 pg/mL Pre-menopausal: Late follicu lar 100.0-250.0 pg/mL Pre-menopausal: Luteal <200. 0 pg/mL Post-menopausal 3.0-32.0 pg/ mL REFERENCE INTERVAL: Estrone by TMS Access complete set of age- and/or gender-specific reference intervals for this test in [facility] [employer] [facility] Test Directory ([employer]). Test developed and character istics determined by [employer]. See Compliance Statement B: [employer]/ Performed by [facility] , [address] [place] [address] 8410 www.[employer], Wilner Saenz do, MD, Lab. Director Performed By: #### DHEAS, TD, PROG, E2 #### [facility] s [address] [address] #### EST #### [address] [address] [phone] estradiol-17b on 13-08-21 Estradiol-17B <25 Normal 08-16-2019 [facility] ([id number]) Comment: Result Comment: This test is not [...] E2 (Estradiol III) [package insert V 3.0 Austrian]. [facility], [place], [place], September 2015. Performed By: #### DHEAS, TD, PROG, E2 #### [facility] [address] [address] #### EST #### [address] [address] [phone] cnpn on 2019-08-16 CNPN [facility]phone [facility] Normal 08-16-2019 Alpha Orlando GARZONJAZLYN Antonieta ([id number]) 1965 [facility] Time Provider Department ([id number]) 08/16/19 HUGO NAVA During your visit today, [...] Hives Date Reviewed: 08/15/2019 Reviewed by: Ofe ([facility]) Yoel - Fully Assessed Reason for Visit: [...] 08/23/19 progress on 2019-07 PROGRESS HNO ID: [id number] Normal 08-15-2019 Alpha Author: Ofe Randhawa) [facility] Service: ? Alpha Author Type: Nurse Practitioner ([id number]) Type: Progress Notes Filed: 08/15/2019 3:01 PM [...] elsewhere. She has seen endocr inology at [facility], she was started on metformin for possible [...] stroke - Colon Cancer Father age 64 [place] - Diabetes Father Type 2 - Hypertension Father - Coronary Artery Disease Father Hx of AL - Thyroid Sister hx of parathyroid disease/ [...] on the phone with pt Ofe Garcia APRN.WINDOW MAKER progress on 2019-07 PROGRESS HNO ID: [id number] Normal 08-10-2019 [facility] Author: Hugo Nava Alpha ([id number]) Service: ? Author Type: Physician Type: Progress [...] stroke - Colon Cancer Father age 64 [place] - Diabetes Father Type 2 - Hypertension Father - Coronary Artery Disease Father Hx of AL - Thyroid Sister hx of parathyroid disease/ [...] TSH Qn 0.989 0.270-4.200 uU/mL Normal 07-21-2019 [facility] ([id number]) Comment: Performed By: #### DHEAS, TD, PROG, E2 #### [facility] [address] [place], [place] [address] #### EST #### [facility] [address] [place] [address] [phone] estrone on Estrone 25.5 pg/mL Normal 07-21-2019 [facility] ([id number]) Comment: Result Comment: (NOTE) Females: Pre-menopausal: Early follic ular <150.0 pg/mL Pre-menopausal: Late follicu lar 100.0-250.0 pg/mL Pre-menopausal: Luteal <200. 0 pg/mL Post-menopausal 3.0-32.0 pg/ mL REFERENCE INTERVAL: Estrone by TMS Access complete set of age- and/or gender-specific reference intervals for this test in t [employer] [facility] Test Directory ([employer]). Test developed and character istics determined by [employer]. See Compliance Statement B: [employer]/ Performed by [facility] , [address] [place], [place] [address] www.[employer], Wilner Saenz do, MD, Lab. Director Performed By: #### DHEAS, TD, PROG, E2 #### [facility] [address] [place] [phone] #### EST #### [facility] [address] [place] [address] [phone] estradiol-17b on 13-07-26 Estradiol-17B 46 pg/mL Normal 07-21-2019 [facility] ([id number]) Comment: Result Comment: This test is not [...] E2 (Estradiol III) [package insert V 3.0 Austrian]. [facility], [place], [place], September 2015. Performed By: #### DHEAS, TD, PROG, E2 #### [facility] [address] [place], [place] [address] #### EST #### [facility] [address] [place] [address] [phone] cnpn on 2019-07-12 [facility] Normal 07-12-2019 Alpha [facility] JAZLYN GARZON ([id number]) 1965 F Alpha Date Time Provider Department ([id number]) 07/12/19 HUGO NAVA [facility] During your visit today, we recorded the following informati on about you: Samantha Simon RN 07/12/2019 4:57 PM Signed Sonics calling to say patient needs prior auth for Vivel le-Dot. PRIOR AUTHORIZATION Medication for Prior Authorization: Vivelle-Dot Other formulary meds available : NO Insurance Company: [employer] phone number: Patient insurance ID number: [id number] Samantha Nava MD 07/12/2019 5:00 PM Signed She cannot tolerate generic. Is able to take francesco Albright Ma 07/13/2019 9:20 AM Signed -Prior Authorization has been completed online at [employer] for vivelle-dot patches, will await response. [place]- [id number] Please keep encounter open until final decision has been rec eived and documented from insurance company. Nayeli Fitch LPN 07/31/2019 1:11 PM Signed Received below response from [employer]: Allergies As of Date: 07/12/2019 Noted Allergy [...] Fully Assessed Reason for Visit: Insurance Authorization [[id number]] Cmt: Vivelle-Dot patches Reason For Visit History [...] on 2019-07-05 CNPN Telephone ([facility]) Normal 07-05-2019 Alpha JAZLYN Jones ([id number]) 1965 [facility] Date Time Provider Department ([id number]) 07/05/19 3:00 PM HUGO NAVAWS During your [...] one yane. Also saw yane Neves in [place]. They are planning on setting her up [...] stroke - Colon Cancer Father age 64 [place] - Diabetes Father Type 2 - Hypertension Father - Coronary Artery Disease Father Hx of AL - Thyroid Sister hx of parathyroid disease/ [...] OBSOLETE Refill (FAMPWS) Normal 06-27-2019 Soy cortez [facility] JAZLYN GARZON ([id number]) 1965 [facility] Date Time Provider Department ([id number]) 06/27/19 HUGO NAVA During your visit today, [...] 06/27/19 progress on 2019-06 PROGRESS HNO ID: [id number] Normal 06-26-2019 Alpha Author: Ha Ortiz [facility] Service: ? Alpha Author Type: Physician ([id number]) Type: Progress Notes Filed: 06/26/2019 9:23 AM [...] stroke - Colon Cancer Father age 64 [place] - Diabetes Father Type 2 - Hypertension Father - Coronary Artery Disease Father Hx of AL - Thyroid Sister hx of parathyroid disease/ [...] 50 mg capsule Take 1 capsule by [facility] twice daily. (Patient not taking: [...] year old female is being evaluated via [facility] for abnormal screenign etst for chsings . [...] 324 ug/d 251 Epinephrine, Ur ratio to TOWER CLIMBER 0 - 20 ug/g TOWER CLIMBER 6 Norepinephrine, Ur ratio to TOWER CLIMBER 0 - 45 ug/g TOWER CLIMBER 46 (H) Dopamine, Ur ratio to TOWER CLIMBER 0 - 250 ug/g TOWER CLIMBER 194 Catecholamines Interpretation SEE NOTE Epinephrine, Ur [...] ug/d 46.3 (H) 48.8 (H) Cortisol ug/g Mandrel Puller, Ur (UFRCRT) ug/g TOWER CLIMBER 32.74 33.64 Free Cortisol UR, Interpretation SEE [...] 2.3 Percent free calculation not provided by [facility]. Testosterone Free 0.06 - 0.92 ng/dL 8.8 [...] 7.2 progress on 2019-05 PROGRESS HNO ID: [id number] Normal 06-19-2019 [facility] Author: Hugo Nava Alpha ([id number]) Service: ? Author Type: Physician Type: Progress [...] two days ago. She is going to machine pecan picker her progesterone today. Again we hav e [...] 50 mg capsule Take 1 capsule by [facility] twice daily. (Patient not taking: [...] stroke - Colon Cancer Father age 64 [place] - Diabetes Father Type 2 - Hypertension Father - Coronary Artery Disease Father Hx of [place] - Thyroid Sister hx of parathyroid disease/ [...] Extremities: No deformities, edema, skin discoloration, club kibmer or cyanosis. Good capillary refill. ASSESSMENT/PLAN: 1. [...] 2019-06-19 CNOV Office Visit (FAMPWS) Normal 06-19-19 Alpha [facility] FLORAJAZLYN Reveles ([id number]) 1965 [facility] Date Time Provider Department ([id number]) 06/19/19 10:40 AM HUGO NAVA During your [...] two days ago. She is going to machine pecan picker her progesterone today. Again we have discussed [...] stroke - Colon Cancer Father age 64 [place] - Diabetes Father Type 2 - Hypertension Father - Coronary Artery Disease Father Hx of AL - Thyroid Sister hx of parathyroid disease/ [...] 06/19/19 progress on 2019-05 PROGRESS HNO ID: [id number] Normal 06-16-2019 [facility] Author: Michelle Andrea (Tech) Alpha ([id number]) Service: ? Author Type: Thermodynamics Teacher Type: Progress Notes Filed: 06/16/2019 1:48 PM [...] * * *Final Report* * * Normal [facility] DATE OF EXAM: Jun 16 2019 1:18PM Alpha ([id number]) [facility] 0581 - ROSALIE SCREENING / PROCEDURE REASON: Screening breast examination * * * * Physician Interpretation * * * * RESULT: #[id number] - ROSALIE SCREENING BILATERAL DIGITAL SCREENING MAMMOGRAM [...] mammogram, 06/07 mammogram, and 01/21/2012 mammogram - [facility]. There are scattered fibroglandular elements in both [...] is recommended. Gabriella White M.D. pt/lolis:06/16/2019 13:52:33 Almond Blancher Operator(s): RT Emre(R)(M), [facility] letter sent: Normal over 40 Mammogram [...] Health, Family Medicine, and Medical/Surgical Oncology, the [facility] has carefully reviewed the data and [...] providers when to sto p screening mammograms. Upholsterer Outside: Lolis Transcribe Date/Time: Jun 16 2019 12:55P Dictated by: GABRIELLA WHITE MD This examination was interpreted and the report reviewed and electronically signed by: GABRIELLA WHITE MD on Jun 16 2019 1:52PM EST [id number] cnco on 2019-06-16 CNCO HNO ID: [id number] Normal 06-16-2019 [facility] Author: Mammography Coordinator ([id number]) Service: ? Author Type: Physician Type: Letter Filed: 06/19/2019 11:34 PM Note Text: June 16, 2019 PID: [id number] Jazlyn Orlando Garzon [address] [place] [address] Dear Sarah Garzon, We are pleased to [...] report will be kept on file at [facility] as part of your permanent medical record and are available f or your continuing care. Thank you for allowing us to help in meeting your health car e needs. Sincerely, Dr. White Interpreting Radiologist [facility] (Normal over 40) vitamin d 25 hydroxy on 2019-06-15 Vitamin D 25 Hydroxy 20.7 31.0-80.0 ng/mL Low 0 [facility] ([id number]) Comment: Result Comment: Classificati on of 25 [place] Vitamin D status: Insufficiency/Moderate Defic iency: < or = 30 ng/mL Sufficiency/Optimal Levels: 31 to 80 ng/mL Toxicity: > 100 ng/mL Test performed by chemilumin escent immunoassay. Performed By: #### DHEAS, TD, PROG, E2 #### [facility] [address] [place], [place] [address] #### EST #### [facility] [address] [place] [address] [phone] testosterone, tot/fr on 2019-06-15 Testosterone [Mass/Vol] 30 8-60 ng/dL Normal 2019 [facility] ([id number]) Comment: Result Comment: (NOTE) ADDITIONA L INFORMATION Testing performed by Liquid Chromatography-Tandem Mass Spectrometry (LC-MS/MS). This test was developed and its performance characteristics determined by [facility] in a manner consistent with CLIA requirements. This test has not been cleared or approved by the U.S. Food and Drug Admin istration. Performed By: #### TFTEST ## ## [facility] [address] [place] [address] Testosterone, Free 0.42 0.06-0.92 ng/dL Normal 06-15-2019 [facility] ([id number]) Comment: Result Comment: (NOTE) ADDITIONA L INFORMATION Testing performed by [facility]. This test was developed and its performance characteristics determined by [facility] in a manner consistent with CLIA requirements. This test has not been cleared or approved by the U.S. Food and Drug Admin istration. Performed By: #### TFTEST ## ## [facility] [address] [place] [address] progesterone on 202 Progesterone 0.6 ng/mL Normal 06-15-2019 [facility] ([id number]) Comment: Result Comment: Menstrual Cy soy Progesterone Reference Ranges: Follicular:<1.0 ng/mL Ovulation:<12.1 ng/mL Luteal:1.8 to 23.9 ng/mL Progesterone Refer ence Ranges vary by gestational period: First Trimester:11.0 to 44.3 ng/mL Second Trimester:25.4 to >60 .0 ng/mL Third Trimester:58.7 to >60. 0 ng/mL Post menopausal Progesterone :<0.5 ng/mL Reference: 1. Progesterone ( Progesterone III) [package insert V 1.0 Austrian]. [facility], [place], [place]. January 2015. Performed By: #### DHEAS, TD, PROG, E2 #### [facility] [address] [place], [place] [address] #### EST #### [facility] [address] [place] [address] [phone] estrone on Estrone 25.2 pg/mL Normal 06-15-2019 [facility] ([id number]) Comment: Result Comment: (NOTE) Females: Pre-menopausal: Early follic ular <150.0 pg/mL Pre-menopausal: Late follicu lar 100.0-250.0 pg/mL Pre-menopausal: Luteal <200. 0 pg/mL Post-menopausal 3.0-32.0 pg/ mL REFERENCE INTERVAL: Estrone by [facility] Access complete set of age- and/or gender-specific reference intervals for this test in [facility] [employer] [facility] Test Directory ([employer]). Test developed and character istics determined by [employer]. See Compliance Statement B: [employer]/ Performed by [facility] , [address] [place], [place] [address] www.[employer], Wilner Saenz do, MD, Lab. Director Performed By: #### DHEAS, TD, PROG, E2 #### [facility] [address] [place], [place] [address] #### EST #### [facility] [address] [address] [phone] estradiol-17b on 15-06-19 Estradiol-17B <25 Normal 06-15-2019 [facility] ([id number]) Comment: Result Comment: This test is not [...] E2 (Estradiol III) [package insert V 3.0 Austrian]. [facility] [facility], [place], [place], September 2015. Performed By: #### DHEAS, TD, PROG, E2 #### [facility] [address] [place], [place] [address] #### EST #### [facility] [address] [place] [address] [phone] dhea-s on 2019-05-28 0 DHEA-S 22.7 35.4-256.0 ug/dL Low 06-15-2019 [facility] ([id number]) Comment: Result Comment: Reference ra nges are age and gender specific. For additional information, reference range tables can be found in the laboratory test directory. The normal values are based on the following source: Dehydroepiandrosterone sulfate (DHEA S) [package insert V 17.0 Austrian]. [employer], [place], [place]: November 2012. Performed By: #### DHEAS, TD, PROG, E2 #### [address] [place], [place] [address] #### EST #### [facility] [address] [place], [place] [id number] [phone] cortisol on 2019-05 Cortisol 34.0 ug/dL Normal 06-15-2019 [facility] ([id number]) Comment: Result Comment: Cortisol Ref erence Range: AM = 5.3-22.5, PM = 3.4-16.8 Performed By: #### DHEAS, TD, PROG, E2 #### [facility] [address] [place], [place] [address] #### EST #### [facility] [address] [place], [place] [id number] [phone] acth on 2019-06-15 ACTH 25 <47 pg/mL Normal 06-15-2019 [facility] (33012) Comment: Performed By: #### DHEAS, TD, PROG, E2 #### [facility] [address] [place], [place] [address] #### EST #### [facility] [address] [place] [address] [phone] progress on 2019-05 PROGRESS HNO ID: [id number] Normal 06-14-2019 [facility] Author: Hugo Nava Alpha ([id number]) Service: ? Author Type: Physician Type: Progress [...] finally get her vivelle-dot since insurance was [employer]. She has not started it yet due to stresses at home. Her daughter had a tubal and her aunt is dying in hospice. She requests a r efill of xanax to get through the next few weeks. Checked oarrs. She is gelacio re of risks of meds. ? Since here last has seen gi and crucible packer. Wanted to have scopes p erformed by Dr. Hernandez. She states she will be getting these done. Antione wheat, has been intolerant of any class of gi meds. ? She still has an extensive list of symptoms including skin b urning, reflux. Fatigue, dizziness, abdominal fullness. Again, she has seen an extensive number of specialists toyin smith from endo, gi, surgery, pulmonary, cardiology, crucible packer, rheumatology, funct ional medicine, neurology, etc. She has had extensive testing. The one consistent thing is that when she can tolerate hormones, she feels relatively normal. The difficult thing is that she has been unable to tolerate much buttermaker helper. We have had extensive discussions a bout [...] previously offered to have her see an director investor relations at a tertiary center like [facility] or [facility] or , however, she prefers t [...] Urine <=45.0 ug/d 48.8 (H) Cortisol ug/g Mandrel Puller, Ur (UFRCRT) ug/g TOWER CLIMBER 33.64 Free Cortisol UR, Interpretation SEE NOTE [...] 50 mg capsule Take 1 capsule by [facility] twice daily. (Patient not taking: [...] stroke - Colon Cancer Father age 64 [place] - Diabetes Father Type 2 - Hypertension Father - Coronary Artery Disease Father Hx of [place] - Thyroid Sister hx of parathyroid disease/ [...] E89.0 - SYNTHROID 137 MCG TABLET Hugo Nvaa MD cnov on 2019-06-14 CNOV Office Visit (FAMPWS) Normal 06-14-19 Alpha JAZLYN Jones ([id number]) 1965 [facility] Date Time Provider Department ([id number]) 06/14/19 1:00 PM HUGO NAVA During your [...] providers. 05/24/2019 She did finally get her [employer] insurance was being diffult. She has not started it yet due to stresses at [facility]. Her daughter had a tubal and her aunt is dying in [facility]. She requests a refill of xanax to get through the next few weeks. Checked oarrs. She is aware of risks of meds. ? Since here last has seen gi and crucible packer. Wanted to have scopes performed by Dr. Hernandez. She states she will be getting these done. Again, has been intolerant of any class of gi meds. ? She still has an extensive list of symptoms including skin burning, reflux. Fatigue, dizziness, abdominal fullness. Again, she has seen an extensive number of speci alists ranging from endo, gi, surgery, pulmonary, cardiology, crucible packer, rheumatology, functiona l medicine, neurology, etc. She has had extensive testing. The one consistent thing is that when she can tolerate hormones, she feels relatively normal. The difficult thing is that she has been unable to tolerate much usp . We have had extensive discussions about [...] reviously offered to have her see an director investor relations at a tertiary center like [facility] or [facility] or , however, she prefers to [...] Urine <=45.0 ug/d 48.8 (H) Cortisol ug/g Mandrel Puller, Ur (UFRCRT) ug/g TOWER CLIMBER 33.64 Free Cortisol UR, Interpretation SEE NOTE [...] stroke - Colon Cancer Father age 64 [place] - Diabetes Father Type 2 - Hypertension Father - Coronary Artery Disease Father Hx of [place] - Thyroid Sister hx of parathyroid disease/ [...] E89.0 - SYNTHROID 137 MCG TABLET Hugo aNva MD Referring Provider: SELF [[id number]] Allergies As [...] tabletRfl: 5 DHEA-S BLD [SQDHEAS] Order #: [id number] FUTURE VITAMIN D 25 HYDROXY [SQVITD] Order #: [id number] FUTURE PROGESTERONE BLD [SQPROG] Order #: [id number] FUTURE Prescriptions as of 06/14/2019 Sig: SYNTHROID [...] TSH Qn 2.610 0.270-4.200 uU/mL Normal 06-05-2019 [facility] ([id number]) Comment: Performed By: #### DHEAS, TD, PROG, E2 #### [facility] [address] [place] [phone] #### EST #### [facility] [address] [place] [address] [phone] period and volume o n 2019-05-25 Period 24 hr Normal 05-25-2019 [facility] ([id number]) Comment: Performed By: #### DHEAS, TD, PROG, E2 #### [facility] [address] [place] [phone] #### EST #### [facility] [address] [place] [address] -138 Volume 3300 mL Normal 05-25-2019 [facility] ([id number]) Comment: Performed By: #### DHEAS, TD, PROG, E2 #### [facility] [address] [place] [phone] #### EST #### [facility] [address] [place] [address] -129 creatinine,urine,24h on 2019-05-25 Creatinine,Urine,24h 1.452 0.8-1.8 g/24 hr Normal 0 [facility] ([id number]) Comment: Performed By: #### DHEAS, TD, PROG, E2 #### [facility] [address] [place] [phone] #### EST #### [facility] [address] [place] [address] [phone] progress on 2019-04 PROGRESS HNO ID: [id number] Normal 05-24-2019 [facility] Author: Hugo Dixon ([id number]) Service: ? Author Type: Physician Type: Progress Notes Filed: 05/24/2019 5:24 PM Note Text: Patient presents with: Dizziness HPI: Patient presents today for office visit for follow up. She did finally get her vivelle-dot since insurance was [employer] [address]. She has not started it yet due to stresses at home. Her daughter had a tubal and her aunt is dying in hospice. She requests a r efill of xanax to get through the next few weeks. Checked oarrs. She is gelacio re of risks of meds. Since here last has seen gi and crucible packer. Wanted to have scopes p erformed by Dr. Hernandez. She states she will be getting these done. Antione wheat, has been intolerant of any class of gi meds. She still has an extensive list of symptoms including skin b urning, reflux. Fatigue, dizziness, abdominal fullness. Again, she has seen an extensive number of specialists toyin smith from endo, gi, surgery, pulmonary, cardiology, crucible packer, rheumatology, funct ional medicine, neurology, etc. She has had extensive testing. The one consistent thing is that when she can tolerate hormones, she feels relatively normal. The difficult thing is that she has been unable to tolerate much buttermaker helper. We have had extensive discussions a bout [...] previously offered to have her see an director investor relations at a tertiary center like [facility] or [facility] or , however, she prefers t [...] 25 mg tablet Take 1 tablet by [facility] once daily as needed. - [...] stroke - Colon Cancer Father age 64 [place] - Diabetes Father Type 2 - Hypertension Father - Coronary Artery Disease Father Hx of [place] - Thyroid Sister hx of parathyroid disease/ [...] cm nodule not noted on previous ct(06/14)-seen [facility] ER ct-08/25/18, repeat ct in 04/13 adrenal described as normal. Extensive review shows she had a 1.4 cm adrenal thickening i ntermittently noted dating back to at least 2012. Has seen endo and neuroe ndo surg for the same. Would not rework up unless changes. Hugo Nava MD cnov on 2019-05-24 CNOV Office Visit (FAMPWS) Normal 05-24-19 20 [facility] JAZLYN Jones ([id number]) 1965 F [facility] Date Time Provider Department ([id number]) 05/24/19 3:20 PM HUGO NAVA During your visit today, we recorded the following informati on about you: Pulse Blood pressure Weight 96/minute 142/82 90.3 kg Sudha Pink REHABILITATION ENGINEER 05/24/2019 3:36 PM Signed For about 4-5 [...] follow up. She did finally get her [employer] insurance was being diffult. She has not started it yet due to stresses at [facility] [facility]. Her daughter had a tubal and her aunt is dying in [facility]. She requests a refill of xanax to get through the next few weeks. Checked oarrs. She is aware of risks of meds. Since here last has seen gi and crucible packer. Wanted to have scopes performed by Dr. Hernandez. She states she will be getting these done. Again, has been intolerant of any class of gi meds. She still has an extensive list of symptoms including skin burning, reflux. Fatigue, dizziness, abdominal fullness. Again, she has seen an extensive number of speci alists ranging from endo, gi, surgery, pulmonary, cardiology, crucible packer, rheumatology, functiona l medicine, neurology, etc. She has had extensive testing. The one consistent thing is that when she can tolerate hormones, she feels relatively normal. The difficult thing is that she has been unable to tolerate much buttermaker helper . We have had extensive discussions about [...] reviously offered to have her see an director investor relations at a tertiary center like [facility] or [facility] or , however, she prefers to [...] stroke - Colon Cancer Father age 64 [place] - Diabetes Father Type 2 - Hypertension Father - Coronary Artery Disease Father Hx of [place] - Thyroid Sister hx of parathyroid disease/ [...] nodule not noted on previous ct(06/14)-se en [facility] ER ct-08/25/18, repeat ct in 04/13 adrenal [...] capsuleRfl: 2 ESTRADIOL-17B BLD [SQE2] Order #: [id number] STANDING ESTRONE BLD [SQEST] Order #: [id number] STANDING TESTOSTERONE, FREE AND TOTAL [SQFTESTO] Order #: [id number] STANDING ALPRAZolam (XANAX) 1 mg tabletTake 1 [...] 08/25/2018 More... Visit Notes: >> Sudha Pink REHABILITATION ENGINEER WedMay 24, 2019 3:29 PM Status: Signed [...] 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 Disc: Reason for discontinue is not on file. Disposition: Return in about 4 weeks (around 06/21/2019). Follow-up and Disposition History Recorded Encounter Status:Closed by HUGO NAVA MD on 05/24/19 urinalysis with microscopic on 2019-05-12 Bilirubin, Urine Negative Negative Normal 05-12-2019 [facility] ([id number]) Comment: Performed By: #### TFTEST ## ## [facility] [address] [place] [id number] Clarity (U) Clear Clear Normal 05-12-2019 [facility] (82845) Comment: Performed By: #### TFTEST ## ## [facility] [address] [place] [address] Color (U) Yellow Yellow Normal 05-12-2019 [facility] (80554) Comment: Performed By: #### TFTEST ## ## [facility] [address] [place] [address] Comments SEE COMMENT Normal 05-12-2019 [facility] (55510) Comment: Result Comment: N/A Performed By: #### TFTEST ## ## [facility] [address] [place] [address] Epithelial cells LM.HPF SEE COMMENT Normal 04-26 [facility] (Urine sed) [#/Area] [facility] (02263) Comment: Result Comment: Few Squamous Epithelial Cells Performed By: #### TFTEST ## ## [facility] [address] [place] [address] Glucose Ql (U) Negative Negative Normal 05-12-2019 [facility] (86238) Comment: Performed By: #### TFTEST ## ## [facility] [address] [place] [address] Hemoglobin/Blood,Ur 1+ Negative Critically abnormal 05-12-2019 [facility] (24880) Comment: Performed By: #### TFTEST ## ## [facility] [address] [place] [address] Ketones Ql (U) Negative Negative Normal 05-12-2019 [facility] (73603) Comment: Performed By: #### TFTEST ## ## [facility] [address] [place] [address] Leukest Negative Negative Normal 05-12-2019 [facility] (64007) Comment: Performed By: #### TFTEST ## ## [facility] [address] [place] [address] Nitrite Ql (U) Negative Negative Normal 05-12-2019 [facility] (80872) Comment: Performed By: #### TFTEST ## ## [facility] [address] [place] [address] pH (Bld) 6.0 4.5-8.0 Normal 05-12-2019 [facility] (09271) Comment: Performed By: #### TFTEST ## ## [facility] [address] [place] [address] Protein (U) [Mass/Vol] Negative Negative mg/dL Normal [facility] (51675) Comment: Performed By: #### TFTEST ## ## [facility] [address] [place] [address] RBC (U) [#/Vol] 0-3 0-3 Normal 05-12-2019 [facility] (63697) Comment: Performed By: #### TFTEST ## ## [facility] [address] [place] [address] Specific Marquez, Ur 1.010 1.005-1.030 Normal [facility] (18161) Comment: Performed By: #### TFTEST ## ## [facility] [address] [place] [address] Urine Vladimir Comment SEE COMMENT Normal 05-12-2019 [facility] (46103) Comment: Result Comment: N/A Performed By: #### TFTEST ## ## [facility] [address] [place] [address] Urobilinogen Qn (U) Normal Normal Normal 05-12-2019 [facility] (47398) Comment: Performed By: #### TFTEST ## ## [facility] [address] [place] [address] WBC (Bld) [#/Vol] 0-5 0-5 Normal 05-12-2019 [facility] (65495) Comment: Performed By: #### TFTEST ## ## [facility] [address] [place] [address] progress on 2019-04 PROGRESS HNO ID: [id number] Normal 05-12-2019 [facility] Author: Antonieta Esqueda (PaGenoC) [facility] (56014) Service: ? Author Type: Physician Cable Driller Type: Progress Notes Filed: 05/12/2019 6:18 PM [...] stroke - Colon Cancer Father age 64 [place] - Diabetes Father Type 2 - Hypertension Father - Coronary Artery Disease Father Hx of [place] - Thyroid Sister hx of parathyroid disease/ [...] 25 mg tablet Take 1 tablet by [facility] once daily as needed. 10 [...] (WOOB) Normal 05-12-2019 Yusef mckeon JAZLYN Jones ([id number]) 1965 [facility] Date Time Provider Department ([id number]) 05/12/19 8:00 AM ZOË DEJESUS WOOB During your visit today, we recorded the following informati on about you: Referring Provider: MIREYA BARRERA ([facility]) [[id number]] Allergies As of Date: 05/12/2019 Noted Allergy [...] Ma - Fully Assessed Reason for Visit: CHRISTIAN MINISTRIES PROFESSOR Ultrasound [914389] Primary Visit Diagnosis:Cyst of right ovary [N83.201] [...] 2019-05-12 CNOV Office Visit (FAMPWS) Normal 05-12-19 [facility] JAZLYN Jones ([id number]) 1965 [facility] Date Time Provider Department (07413) 05/12/19 1:40 PM Antonieta CEJA) [facility] During your visit today, we recorded the [...] stroke - Colon Cancer Father age 64 [place] - Diabetes Father Type 2 - Hypertension Father - Coronary Artery Disease Father Hx of AL - Thyroid Sister hx of parathyroid disease/ [...] - Rectocele 05/13/2009 - SVT (supraventricular tachycardia) ([facility]) - Syncope 05/14/2013 -Reported that she had [...] ) - lancets (FREESTYLE LANCETS) [facility] USE FOUR T IMES DAILY [...] Diagnosis:Lower abdominal pain [R10.30] Order(s):UA DIP B/O [1906386] Order #: [id number] UA DIP, URINE (POC) [[id number]] Order #: [id number]. #:[id number] URINALYSIS WITH MICROSCOPIC [SQUAWMIC] Order #: [id number] ec. #:[id number] Prescriptions as of 05/12/2019 Sig: SYNTHROID 137 [...] on 2019-04 OBSOLETE Refill (FAMPWS) Normal 05-09-2019 [facility] JAZLYN Jones ([id number]) 1965 [facility] Time Provider Department ([id number]) 05/09/19 HUGO NAVA FAMPWS During your visit today, we recorded the following informati on about you: Katlyn Mills LPN 05/09/2019 11:03 AM Signed [facility] faxed a request for the following [...] 05/09/19 progress on 2019-04 PROGRESS HNO ID: [id number] Normal 05-05-2019 [facility] Author: Melissa Silva Dixon ([id number]) Service: ? Author Type: Nurse Practitioner Type: [...] right lower quadrant d escribed as cramping. CHRISTIAN MINISTRIES PROFESSOR: Negative for abnormal vaginal bleeding, abnormal vagina [...] stroke - Colon Cancer Father age 64 [place] - Diabetes Father Type 2 - Hypertension Father - Coronary Artery Disease Father Hx of [place] - Thyroid Sister hx of parathyroid disease/ [...] 25 mg tablet Take 1 tablet by [facility] once daily as needed. 10 [...] with more than 50% of the total zocd-va-yvvt t giancarlo of the visit in counseling / coordination of care. Melissa Silva RN APRN.DHIRAJ españaov on 2019-05-05 CNOV Office Visit ([facility]) Normal 05-05-19 [facility] JAZLYN GARZON ([id number]) 1965 [facility] Date Time Provider Department ([id number]) 05/05/19 8:40 AM MELISSA SILVA [facility] During your visit today, we recorded the following informati on about you: Pulse Blood pressure Weight Height 103/minute 138/92 89.8 kg 1.575 m Melissa Silva RN APRN.WINDOW MAKER 05/05/2019 9:13 AM Signed Jazlyn Garzon a [...] and right lower quadrant described as cramping. CHRISTIAN MINISTRIES PROFESSOR: Negative for abnormal vaginal bleeding, abn ormal [...] stroke - Colon Cancer Father age 64 [place] - Diabetes Father Type 2 - Hypertension Father - Coronary Artery Disease Father Hx of [place] - Thyroid Sister hx of parathyroid disease/ [...] with more than 50% of the total kmzh-lq-eejb time of the visit in counseling / coordination of care. Melissa Silva RN MATERIAL FLOW ENGINEER.DHIRAJ Silva RN APRN.DHIRAJ 05/05/2019 9:02 AM Signed [...] Visit Diagnosis:Family history of colon cancer in [facility] er [Z80.0] Prescriptions as of 05/05/2019 Sig: [...] TSH Qn 5.060 0.270-4.200 uU/mL High 05-02-2019 [facility] ([id number]) Comment: Performed By: #### TSH ####[facility] [address] [place], [place] [phone] progress on 2019-04 PROGRESS HNO ID: [id number] Normal 05-02-2019 [facility] Author: Antonieta Esqueda (Gregorio) Marcial Dixon ([id number]) Service: ? Author Type: Physician Cable Driller Type: Progress Notes Filed: 05/02/2019 8:55 AM [...] diagnosed with RLL per CXR 04/23 in [facility] ED. Was started on Zithromax. Sx first a week before [place]. Nephew had pneumonia. No fever. Cough, wheezing. [...] stroke - Colon Cancer Father age 64 [place] - Diabetes Father Type 2 - Hypertension Father - Coronary Artery Disease Father Hx of [place] - Thyroid Sister hx of parathyroid disease/ [...] 2019-05-02 CNOV Office Visit (FAMPWS) Normal 05-02-[address] [place] [address] JAZLYN Jones ([id number]) 1965 [facility] Date Time Provider Department ([id number]) 05/02/19 8:00 AM Antonieta ECJA) FAMPWS During your visit today, we recorded [...] wi th RLL per CXR 04/23/20 in [facility] ED. Was started on Zithromax. Sx first [...] stroke - Colon Cancer Father age 64 [place] - Diabetes Father Type 2 - Hypertension Father - Coronary Artery Disease Father Hx of [place] - Thyroid Sister hx of parathyroid disease/ [...] is an infection of the bronchial (say: ?voifj-tmx-lzn?) tree. The bronchial tree is made u [...] talk to your family doctor. Copyright ? [id number] [employer] Permission is granted [...] talk to your family doctor. Copyright ? [id number] [employer] Permission is granted [...] Normal 04-20-2019 [place] GARZONJAZLYN Antonieta ([id number]) 1965 [facility] Time Provider Department ([id number]) 04/20/19 HUGO NAVA FAMPWS During your visit [...] 04/20/19 progress on 2019-03 PROGRESS HNO ID: [id number] Normal 04-12-2019 [facility] Author: Ivy Cleary [facility] ([id number]) Service: ? Author Type: Psychologist Type: Progress Notes Filed: 04/12/2019 10:36 AM Note Text: [facility] Progress Note Jazlyn Garzon 04/11/2019 [id number] Provider: Ivy Steele PSYD CPT Code: 97960 Psychotherapy 38-52 minutes Time: Approximately 45 minutes [...] a routine culture is not recommended. [facility] (19248) r testing is the most sensit yocasta [...] instructions. Comment: Performed By: #### TSH #### [facility] [address] [place], [place] [address] progress on 2019-03 PROGRESS HNO ID: [id number] Normal 04-05-2019 [facility] Author: Ofe Randhawa) Yoel Dixon ([id number]) Service: ? Author Type: Nurse Practitioner Type: [...] genitalia normal, normal Bartholin's glands , urethra, [place]'s glands, no vulvar lesions, no cervical lesions, phys iologic discharge present, normal appearing perineal body and perian al region Slight uterus prolapse??? BIMANUAL: uterus normal size, shape and consistency, no adne xal masses and non-tender. RECTOVAGINAL: deferred. ASSESSMENT/PLAN: 1. Vaginal irritation - ICD9: 623.9, ICD10: N89.8 (primary d iagnosis) - WOUND CULTURE AND GRAM STAIN- if negative pt to schedule w [facility] pelvic pain clinic 2. Pelvic pain in female - ICD9: 625.9, ICD10: R10.2 - CONSULT TO CHRISTIAN MINISTRIES PROFESSOR PELVIC PAIN GIOVNANI Kent on 2019-04-05 CNOV Office Visit (WOOB) Normal 04-05-2019 [facility] JAZLYN GARZON ([id number]) 1965 [facility] Date Time Provider Department ([id number]) 04/05/19 9:00 AM OFE GARCIA (DHIRAJ) WOOB [...] genitalia normal, redd l Bartholin's glands, urethra, [place]'s glands, no vulvar lesions, no cervical l [...] ICD9: 625.9, ICD10: R10.2 - CONSULT TO CHRISTIAN MINISTRIES PROFESSOR PELVIC PAIN Ofe Garcia APRN.WINDOW MAKER Referring Provider: SELF [200] Allergies As of [...] AND GRAM STAIN [SQWCUL] Order #: [id number] CONSULT TO CHRISTIAN MINISTRIES PROFESSOR PELVIC PAIN [[id number]] Order #: [id number]: 1 FUTURE Prescriptions as of 04/05/2019 Sig: [...] 04/05/19 progress on 2019-03 PROGRESS HNO ID: [id number] Normal 04-03-2019 [facility] Author: Antonieta Esqueda (Pa-C) Marcial Dixon ([id number]) Service: ? Author Type: Physician Cable Driller Type: Progress Notes Filed: 04/03/2019 7:18 PM [...] stroke - Colon Cancer Father age 64 [place] - Diabetes Father Type 2 - Hypertension Father - Coronary Artery Disease Father Hx of AL - Thyroid Sister hx of parathyroid disease/ [...] ICD9: 625.8, ICD10: N94.89 Follow up with CHRISTIAN MINISTRIES PROFESSOR or Endo to discuss risk of unopposed estr ogen and possible treatment - HYOSCYAMINE 0.125 MG SUBLINGUAL TABLET 3. Swelling - ICD9: 782.3, ICD10: R60.9 Use diuretic prn sparingly. - CHLORTHALIDONE 25 MG TABLET 4. Hormone disturbance - ICD9: 259.9, ICD10: E34.9 As above M Dheeraj Ceja PA-C cnov on 2019-04-03 CNOV Office Visit (FAMPWS) Normal 04-03-20 19 [facility] [place] JAZLYN GARZON ([id number]) 1965 [facility] Date Time Provider Department ([id number]) 04/03/19 11:20 AM Antonieta CEJA) CATHERINEPWS During your visit today, we recorded the following informati on about you: Temperature Pulse Respiration Blood pressure 98.4 degrees 84/minute 16/minute 138/82 M hDeeraj Ceja PA-C 04/03/2019 7:18 PM Signed BP [...] stroke - Colon Cancer Father age 64 [place] - Diabetes Father Type 2 - Hypertension Father - Coronary Artery Disease Father Hx of AL - Thyroid Sister hx of parathyroid disease/ [...] ICD9: 625.8, ICD10: N94.89 Follow up with CHRISTIAN MINISTRIES PROFESSOR or Endo to discuss risk of un [...] scan was negative ER F/U [41] Cmt: [facility] ER follow up 03/31/19 Reason For Visit [...] 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 CHLORTHALIDONE 25 MG TABLET 10 t* [...] Sp. Request/Comment: - Swab Redd l 03-31-2019 [facility] Smear Result - Negative for Trichomonas vaginalis antigen This test was developed and its performance characteristics determined by [facility]'s Isael Treviño Pathology and Laboratory Medicine [facility] ([id number]) Fortine ([facility]). It has not been cleared or approved by the FDA. [facility] is regulated under CLIA as qualified to perform high complexity testing. This test is used for clinical purposes. It should not be regarded as investigational or for research. Comment: Performed By: #### TFTEST ## ## [facility] [address] [place] [address] [place] [address] progress on 2019-03 PROGRESS HNO ID: [id number] Normal 03-31-2019 [facility] Author: Mireya Benz) [facility] Service: ? [facility] Author Type: Mechanical Planner ([id number]) Type: Progress Notes Filed: 04/04/2019 10:42 PM [...] stroke - Colon Cancer Father age 64 [place] - Diabetes Father Type 2 - Hypertension Father - Coronary Artery Disease Father Hx of [place] - Thyroid Sister hx of parathyroid disease/ [...] genitalia normal, normal Bartholin's glands , urethra, [place]'s glands, no vulvar lesions, no cervical lesions, [...] that, I have worked with a world renowneast [facility] social scientist from the [facility]. I stated this wa s my advice [...] Chlamydia Amplif Negative for Chlamydia Normal 03-31-2019 [facility] trachomatis by Ari guevara ([id number]) amplification. Comment: Performed By: #### DHEAS, TD, PROG, E2 #### [facility] [address] [place] [address] #### EST #### [facility] [address] [place] [address] [phone] GC Amplification Negative for Neisseria Normal 03-31-2019 [facility] gonorrhoeae by Ari guevara ([id number]) amplification. Comment: Performed By: #### DHEAS, TD, PROG, E2 #### [facility] [address] [place] [address] #### EST #### [facility] [address] [place] [address] [phone] GC/Chlam Amp Source Cervix Normal 03-31-2019 [facility] (94529) Comment: Performed By: #### DHEAS, TD, PROG, E2 #### [facility] [address] [place], [place] [address] #### EST #### [facility] [address] [place] [address] [phone] cnov on 2019-03-31 CNOV Office Visit (WOOB) Normal 03-31-2019 [facility] GARZONJAZLYN Antonieta ([id number]) 1965 [facility] Date Time Provider Department ([id number]) 03/31/19 1:40 PM MIREYA BARRERA ([facility]) WOOB During your visit today, we recorded the following informati on about you: Blood pressure Weight 132/94 87.5 kg Mireya Barrera APRN.CNM 04/04/2019 10:42 PM Signed Jazlyn Garzon is a 53 year ol d female who presents for problem visit with pelvic pain. HPI:Patient seen today as walk in visit with multiple compla ints. Has history of bacterial vaginosis. [facility], started 3 days [facility]. Estrogel [...] complaints, history, and providers seen [facility]. I apologized to patient and stated that [...] stroke - Colon Cancer Father age 64 [place] - Diabetes Father Type 2 - Hypertension Father - Coronary Artery Disease Father Hx of AL - Thyroid Sister hx of parathyroid disease/ [...] genitalia normal, redd l Bartholin's glands, urethra, [place]'s glands, no vulvar lesions, no cervical lesions, [...] I have worked with a world renowned social scientist from the [facility]. I sta geoff this was my advice [...] [N89.8] Order(s):GC/CHLAMYDIA DNA DET [SQGCCAMP] Order #: [id number] Spec. #:[id number] BACT/NANCY VAG GRAM STAIN [SQBVCNSM] Order #: [id number] ec. #:[id number] TRICHOMONAS PREP [SQTRICHO] Order #: [id number]. #:[id number] [] fluconazole (DIFLUCAN) 150 mg [...] Sp. Request/Comment: - Swab Norm al 03-31-2019 [facility] ([id number]) Smear Result - Stain results consistent with normal vaginal ishmael. No Yeast observed Few Polymorphonuclear leukocytes Comment: Performed By: #### TFTEST ## ## [facility] [address] [place], [place] [id number] obsolete on 2019-03 OBSOLETE Refill (FAMPWS) [facility]-28-[facility] ([id number]) 1965 [facility] Date Time Provider Department (31980) 03/28/19 HUGO NAVA FAMPWS During your visit today, we recorded the following informati on about you: Katlyn Mills LPN 03/28/2019 11:56 AM Signed [facility] faxed a request for the following [...] Telephone (ENDOSO) Normal 03-28-2019 [facility] JAZLYN Jones ([id number]) 1965 [place] J[place] Dixon Date Time Provider Department (06616) 03/28/19 HA ORTIZ During your visit today, we recorded the following informati on about you: Ha Ortzi MD 03/28/2019 3:03 PM Signed 24 hr urine order is in MD Jackelyn Dinero Pss 03/28/2019 4:47 PM Signed Denise from [facility] is calling and the urine is contaminated and patient needs to come back in to give a new urine. She can b e reached at [phone]. Thank You Mayela Lemon Ma 03/30/2019 7:49 [...] Order(s):FREE ALVERTO, UR LCMSMS [SQUFRCRT] Order #: [id number] FUTURE FREE ALVERTO, UR LCMSMS [SQUFRCRT] Order #: [id number] FUTURE CREATININE 24 HR UR [SQUCRD] Order #: [id number] FUTURE Prescriptions as of 03/28/2019 Sig: SYNTHROID [...] * *Final Report* * * Normal 03-27-2019 [facility] TRANSVAG DATE OF EXAM: Mar 27 2019 7:45AM [facility] ([id number]) U 1060 - US FEMALE PELVIS TRANSVAG [...] as discussed 2. 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 Author Type: Title I Teacher Type: Progress Notes Filed: 03/27/2019 7:46 AM [...] vitamin b12 on 2018 Cobalamin (Vitamin B12) [phone] pg/mL Normal 2018 [facility] [Mass/Vol] [facility] (35097) Comment: Performed By: #### TSH #### [facility] [address] [place] [phone] urine culture on 14-03-27 Bacteria identified Sp. Request/Comment: - Specimen received in pre servative Normal 03-22-2019 [facility] Cx Nom (U) [facility] (01261) Culture Result - No growth (<1,000 CFU/ml) Comment: Performed By: #### TFTEST ## ## [facility] [address] [place] [place] [address] urinalysis with microscopic on 2019-03-22 Bilirubin, Urine Negative Negative Normal 03-22-2019 [facility] (38203) Comment: Performed By: #### DHEAS, TD, PROG, E2 #### [facility] [address] [place] [phone] #### EST #### [facility] [address] [place] [address] [phone] Clarity (U) Clear Clear Normal 03-22-2019 [facility] (08116) Comment: Performed By: #### DHEAS, TD, PROG, E2 #### [facility] [address] [place] [phone] #### EST #### [facility] [address] [place] [address] [phone] Color (U) Yellow Yellow Normal 03-22-2019 [facility] (43619) Comment: Performed By: #### DHEAS, TD, PROG, E2 #### [facility] [address] [place] [phone] #### EST #### [facility] [address] [place] [address] [phone] Comments SEE COMMENT Normal 03-22-2019 [facility] (72581) Comment: Result Comment: N/A Performed By: #### DHEAS, TD, PROG, E2 #### [facility] [address] [place] [phone] #### EST #### [facility] [address] [place] [address] [phone] Epithelial cells LM.HPF SEE COMMENT Normal 02-25 [facility] (Urine sed) [#/Area] Alpha (40739) Comment: Result Comment: Few Squamous Epithelial Cells Performed By: #### DHEAS, TD, PROG, E2 #### [facility] [address] [phone] #### EST #### [facility] [address] [place] [address] [phone] Glucose Ql (U) Negative Negative Normal 03-22-2019 [facility] (39878) Comment: Performed By: #### DHEAS, TD, PROG, E2 #### [facility] [phone] #### EST #### [facility] [address] [place] [address] [phone] Hemoglobin/Blood,Ur 2+ Negative Critically abnormal 03-22-2019 [facility] (90317) Comment: Performed By: #### DHEAS, TD, PROG, E2 #### [facility] [address] [phone] #### EST #### [facility] [address] [place] [address] [phone] Ketones Ql (U) Negative Negative Normal 03-22-2019 [facility] (99636) Comment: Performed By: #### DHEAS, TD, PROG, E2 #### [facility] [address] [place] [phone] #### EST #### [facility] [address] [place] [address] [phone] Leukest Negative Negative Normal 03-22-2019 [facility] (05785) Comment: Performed By: #### DHEAS, TD, PROG, E2 #### [facility] [address] [phone] #### EST #### [facility] [address] [place] [address] [phone] Nitrite Ql (U) Negative Negative Normal 03-22-2019 [facility] (97700) Comment: Performed By: #### DHEAS, TD, PROG, E2 #### [facility] [place] [phone] #### EST #### [facility] [address] [place] [address] [phone] pH (Bld) 7.0 4.5-8.0 Normal 03-22-2019 [facility] (11906) Comment: Performed By: #### DHEAS, TD, PROG, E2 #### [place] [phone] #### EST #### [facility] [address] [place] [address] [phone] Protein (U) [Mass/Vol] Negative Negative mg/dL Normal [address] [place] [address] (01810) Comment: Performed By: #### DHEAS, TD, PROG, E2 #### [place] [address] [place] [phone] #### EST #### [facility] [address] [place] [address] [phone] RBC (U) [#/Vol] 0-3 0-3 Normal 03-22-2019 [facility] (49052) Comment: Performed By: #### DHEAS, TD, PROG, E2 #### [place] [address] [place] [phone] #### EST #### [facility] [address] [place] [address] [phone] Specific Marquez, Ur 1.010 1.005-1.030 Normal 019 [facility] (41627) Comment: Performed By: #### DHEAS, TD, PROG, E2 #### [facility] [address] [phone] #### EST #### [facility] [address] [place] [address] [phone] Urine Vladimir Comment SEE COMMENT Normal 03-22-2019 [facility] (95129) Comment: Result Comment: Result reche cked. Performed By: #### DHEAS, TD, PROG, E2 #### [facility] [address] [place] [phone] #### EST #### [facility] [address] [place] [address] [phone] Urobilinogen Qn (U) Normal Normal Normal 03-22-2019 [facility] (42284) Comment: Performed By: #### DHEAS, TD, PROG, E2 #### [facility] [address] [place] [phone] #### EST #### [facility] [address] [place] [address] [phone] WBC (Bld) [#/Vol] 0-5 0-5 Normal 03-22-2019 C [facility] (48021) Comment: Performed By: #### DHEAS, TD, PROG, E2 #### [facility] [address] [phone] #### EST #### [facility] [address] [place] [address] [phone] progress on 2019-02 PROGRESS HNO ID: [id number] Normal 03-22-2019 [facility] Author: Hugo Dixon ([id number]) Service: ? Author Type: Physician Type: Progress [...] has had extensive testing by several c cristinadiologists in [facility] and at [facility], multiple endocrinologists, endo surgery, several gastroenterologists, [...] Lymph 1.00 - 4.00 k/uL 4.03 (H) [place]% % 9.0 Abs [place] <0.87 k/uL 1.03 (H) Eosin% % 2.5 [...] stroke - Colon Cancer Father age 64 [place] - Diabetes Father Type 2 - Hypertension Father - Coronary Artery Disease Father Hx of [place] - Thyroid Sister hx of parathyroid disease/ [...] JAK2 V617F Interp (NOTE) Normal 03-22-2019 C [facility] (78587) Comment: Result Comment: Performing P athologist: Dr. [...] end DNA sequencing was performed on the [facility] in [facility] ([place], [place]). A customized bioinformatic pipeline was u [...] 1% allele proportion for the JA K2 [id number] single nucleotide variant and approximately 5% allele [...] developed and its performance characteristics determined by [facility]'s Isael Kwabena [facility] ([facility]). It has not been cleared or approved by the FDA. RT-[facility] is regulated under CLIA as qualified to [...] By: #### DHEAS, TD, PROG, E2 #### [facility] [address] [place], [place] [address] #### EST #### [address] [address] [phone] folate, serum on 14-03-27 Folate [Mass/Vol] 12.3 >4.7 ng/mL Normal 03-22-2019 C [facility] (07282) Comment: Performed By: #### TSH #### [facility] [address] [place], [place] [address] epo on 2019-03-22 EPO 6.3 2.6-18.5 mIU/mL Normal 03-22-2019 [facility] (47212) Comment: Result Comment: Test analyze d by the Yanna DxI method. Performed By: #### TSH #### [facility] [address] [place], [place] [address] cnov on 2019-03-22 CNOV Office Visit (FAMPWS) Normal 03-22-20 19 [facility] JAZLYN GARZON ([id number]) 1965 [facility] Date Time Provider Department ([id number]) 03/22/19 10:00 AM HUGO NAVA [facility] During your visit today, we recorded [...] had extensive testing by several cardiologists in [facility] and at [facility], multiple endocrinologists, endo surgery, se rodriguez [...] have egd and colonoscopy scheduled in the [facility]. They wanted to have her to have [...] Lymph 1.00 - 4.00 k/uL 4.03 (H) [place]% % 9.0 Abs [place] <0.87 k/uL 1.03 (H) Eosin% % 2.5 [...] stroke - Colon Cancer Father age 64 [place] - Diabetes Father Type 2 - Hypertension Father - Coronary Artery Disease Father Hx of [place] - Thyroid Sister hx of parathyroid disease/ [...] breast examination [Z12.39] Order(s):US FEMALE PELVIS TRANSVAG [[id number]] Order #: [id number] FUTURE metroNIDAZOLE (METROGEL VAGINAL) 0.75 % Vaginal GelUse 1 Applicatorful vaginally daily at bedtime.Disp: 70 gRfl: 0 ROSALIE SCREENING [[id number]] Order #: [id number] FUTURE UA DIP, URINE (POC) [] Order #: [id number]. #:[id number] URINE CULTURE [SQURCUL] Order #: [id number] URINALYSIS WITH MICROSCOPIC [SQUAWMIC] Order #: [id number] UA DIP, URINE (POC) [] Order #: [id number] Prescriptions as of 03/22/2019 Sig: LANCETS 28 [...] 2019-03-22 Carboxyhemoglobin,Joel 7.1 <2.0 % High 03-22-20 [facility] (94881) Comment: Performed By: #### TSH #### [facility] [address] [id number] n-methylhistamine,ur on 2019-03-21 Collection duration (U) 24 Normal 2018 [facility] (75767) Comment: Performed By: #### TFTEST ## ## [facility] [address] [place] [address] Creatinine [Mass/Vol] 64 mg/dL Normal 03-21-20 [facility] (98931) Comment: Performed By: #### TFTEST ## ## [facility] [address] [place] [address] N-Methylhistamine,Ur 72 30-200 mcg/g Cr Normal 9 [facility] (47607) Comment: Performed By: #### TFTEST ## ## [facility] [address] [place] [address] Urine Volume 2500 Normal 03-21-2019 [facility] (71216) Comment: Performed By: #### TFTEST ## ## [facility] [address] [place] [address] tsh on 2019-03-20 TSH Qn 3.110 0.270-4.200 uU/mL Normal 03-20-2019 [facility] (66915) Comment: Performed By: #### DHEAS, TD, PROG, E2 #### [facility] [address] [place] [phone] #### EST #### [facility] [address] [place] [address] [phone] tryptase on 2019-02 Tryptase 7.2 <8.4 ug/L Normal 03-20-2019 [facility] (02344) Comment: Performed By: #### DHEAS, TD, PROG, E2 #### [facility] [address] [phone] #### EST #### [facility] [address] [place] [address] [phone] progress on 2019-02 PROGRESS HNO ID: [id number] Normal 03-20-2019 [facility] Author: Hugo Nava Dixon ([id number]) Service: ? Author Type: Physician Type: Progress [...] physician. She would need to see an work manager/senior executive compensation analyst to further evaluate these issu es and perhaps a grounds supervisor. She has polycythemia likely related to her smoking and intermittent elevated white counts. She had been set up previously to see immunology and [facility] She did not keep her appt with [...] stroke - Colon Cancer Father age 64 [place] - Diabetes Father Type 2 - Hypertension Father - Coronary Artery Disease Father Hx of [place] - Thyroid Sister hx of parathyroid disease/ [...] Albumin [Mass/Vol] 4.4 3.9-4.9 g/dL Normal 03-20-2019 [facility] (29435) Comment: Performed By: #### DHEAS, TD, PROG, E2 #### [facility] [address] [phone] #### EST #### [facility] [address] [place] [address] [phone] ALP [Catalytic activity/Vol] 72 34-123 U/L Normal 1 05-20-2018 [facility] (24013) Comment: Performed By: #### DHEAS, TD, PROG, E2 #### [facility] [address] [phone] #### EST #### [facility] [address] [place] [address] [phone] ALT [Catalytic activity/Vol] 32 7-38 U/L Normal 1 05-20-2018 [facility] (05575) Comment: Performed By: #### DHEAS, TD, PROG, E2 #### [facility] [place] [phone] #### EST #### [facility] [address] [place] [address] [phone] AST [Catalytic activity/Vol] 23 13-35 U/L Normal 1 05-20-2018 [facility] (81692) Comment: Performed By: #### DHEAS, TD, PROG, E2 #### [facility] [address] [place] [phone] #### EST #### [facility] [address] [place], [place] 87536293 [phone] Bilirubin [Mass/Vol] 0.3 0.2-1.3 mg/dL Normal 9 [facility] (26930) Comment: Performed By: #### DHEAS, TD, PROG, E2 #### [facility] [address] [place] [phone] #### EST #### [facility] [address] [place] [address] [phone] Bilirubin,Conjugated <0.2 <0.2 Normal 9 [facility] (44936) Comment: Performed By: #### DHEAS, TD, PROG, E2 #### [facility] [place] [phone] #### EST #### [facility] [address] [place] [address] [phone] Protein [Mass/Vol] 7.6 6.3-8.0 g/dL Normal 03-20-2019 [facility] (82698) Comment: Performed By: #### DHEAS, TD, PROG, E2 #### [facility] [address] [place] [address] #### EST #### [facility] [address] [place] [address] [phone] cnov on 2019-03-20 CNOV Office Visit (FAMPWS) Normal 03-20- 19 [facility] JAZLYN GARZON ([id number]) 1965 F [facility] Date Time Provider Department (38101) 03/20/19 8:00 AM HUGO NAVA During your visit today, we recorded the following informati on about you: Pulse Respiration Blood pressure 88/minute 16/minute 124/82 Sudha Pink REHABILITATION ENGINEER 03/20/2019 8:34 AM Signed Thought was going to have twice a week hormone p atch at pharmacy and when got there was the once per week patch. 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 Dizziness. Hugo [...] physician. She would need to see an work manager/senior executive compensation analyst to further evaluate these issues and perhaps a grounds supervisor. She has polycythemia likely related to her [...] stroke - Colon Cancer Father age 64 [place] - Diabetes Father Type 2 - Hypertension Father - Coronary Artery Disease Father Hx of [place] - Thyroid Sister hx of parathyroid disease/ [...] [R23.2] Orthostatic hypotension [I95.1] Order(s):CONSULT TO ALLERGY/IMMUNOLOGY [9005] Order #: [id number]: 1 CBC + DIFF [SQCBCDIF] Order #: [id number] FUTURE HEPATIC FUNCTION PNL [SQHFP] Order #: [id number] FUTURE TRYPTASE BLOOD [SQTRYPT] Order #: [id number] FUTURE N-METHYLHISTAMINE,UR [SQMHISTA] Order #: [id number] Prescriptions as of 03/20/2019 Sig: SYNTHROID 125 [...] 08/25/2018 More... Visit Notes: >> Sudha Pink REHABILITATION ENGINEER Mon Mar 20, 2019 8:31 AM Status: Signed Thought was going to have twice a week hormone patch at [facility] and when got there was the once per week patch. Over the weekend with cramping in lower body. Dizziness. Encounter Status:Closed by HUGO NAVA MD on 03/20/19 cbc and differential on 2019-03-20 Abs Baso 0.08 <0.11 k/uL Normal 03-20-2019 [facility] (32067) Comment: Performed By: #### DHEAS, TD, PROG, E2 #### [facility] [address] [place], [place] [address] #### EST #### [facility] [address] [place] [address] [phone] Abs [place] 1.03 <0.87 k/uL High 03-20-2019 [facility] (96228) Comment: Performed By: #### DHEAS, TD, PROG, E2 #### [facility] [address] [phone] #### EST #### [facility] [address] [place] [address] [phone] Abs Neut 5.98 1.45-7.50 k/uL Normal 03-20-2019 [facility] (55023) Comment: Performed By: #### DHEAS, TD, PROG, E2 #### [place] [address] [place] [phone] #### EST #### [facility] [address] [place] [address] [phone] Absolute nRBC <0.01 <0.01 Normal 03-20-2019 [facility] (12975) Comment: Performed By: #### DHEAS, TD, PROG, E2 #### [place] [phone] #### EST #### [facility] [address] [place] [address] [phone] Basophils/100 WBC (Bld) 0.7 % Normal 2018 [facility] (99343) Comment: Performed By: #### DHEAS, TD, PROG, E2 #### [place] [address] [place] [phone] #### EST #### [facility] [address] [place] [address] [phone] DTYPE Auto Diff Normal 03-20-2019 [facility] (16350) Comment: Performed By: #### DHEAS, TD, PROG, E2 #### [place] [phone] #### EST #### [facility] [address] [place] [address] [phone] Eosinophils (Bld) [#/Vol] 0.28 <0.46 k/uL Normal 02-25 [facility] (51016) Comment: Performed By: #### DHEAS, TD, PROG, E2 #### [facility] [address] [place] [phone] #### EST #### [facility] [address] [place] [address] [phone] Eosinophils/100 WBC (Bld) 2.5 % Normal 02-25 [facility] (66262) Comment: Performed By: #### DHEAS, TD, PROG, E2 #### [facility] [address] [place] [phone] #### EST #### [facility] [address] [place] [address] [phone] Erythrocyte distribution 12.3 11.5-15.0 % Normal 03-20 [facility] width (RBC) [Ratio] [facility] (48471) Comment: Performed By: #### DHEAS, TD, PROG, E2 #### [facility] [place] [phone] #### EST #### [facility] [address] [place] [address] [phone] Hematocrit (Bld) [Volume 48.8 36.0-46.0 % High 03-20 [facility]] [facility] (94639) Comment: Performed By: #### DHEAS, TD, PROG, E2 #### [facility] [address] [place] [phone] #### EST #### [facility] [address] [place] [address] [phone] Hemoglobin (Bld) 15.9 11.5-15.5 g/dL High 03-20-2019 [facility] [Mass/Vol] [facility] (84511) Comment: Performed By: #### DHEAS, TD, PROG, E2 #### [facility] [address] [place] [phone] #### EST #### [facility] [address] [place] [address] [phone] Lymphocytes (Bld) [#/Vol] 4.03 1.00-4.00 k/uL High 02-25 [facility] (85509) Comment: Performed By: #### DHEAS, TD, PROG, E2 #### [place] [phone] #### EST #### [facility] [address] [place] [address] [phone] Lymphocytes/100 WBC (Bld) 35.4 % Normal 02-25 [facility] (01491) Comment: Performed By: #### DHEAS, TD, PROG, E2 #### [place] [phone] #### EST #### [facility] [address] [place] [phone] MCH (RBC) [Entitic mass] 32.8 26.0-34.0 pG Normal 03-20 [facility] (20194) Comment: Performed By: #### DHEAS, TD, PROG, E2 #### [place] [phone] #### EST #### [facility] [address] [place] [phone] MCHC (RBC) [Mass/Vol] 32.6 30.5-36.0 g/dL Normal 03-20-20 [facility] (21517) Comment: Performed By: #### DHEAS, TD, PROG, E2 #### [place] [phone] #### EST #### [facility] [address] [place] [address] [phone] MCV (RBC) [Entitic vol] 100.6 80.0-100.0 fL High 03-20 [facility] (33012) Comment: Performed By: #### DHEAS, TD, PROG, E2 #### [facility] [address] [place] [phone] #### EST #### [facility] [address] [place] [address] [phone] Monocytes/100 WBC (Bld) 9.0 % Normal 2018 [facility] (96640) Comment: Performed By: #### DHEAS, TD, PROG, E2 #### [facility] [address] [place] [phone] #### EST #### [facility] [address] [place] [address] [phone] Neutrophils/100 WBC (Bld) 52.4 % Normal 02-25 [facility] (57886) Comment: Performed By: #### DHEAS, TD, PROG, E2 #### [facility] [address] [place] [phone] #### EST #### [facility] [address] [place] [address] [phone] NRBCs 0.0 0 /100 WBC Normal 03-20-2019 [facility] (85008) Comment: Performed By: #### DHEAS, TD, PROG, E2 #### [facility] [address] [place] [phone] #### EST #### [facility] [address] [place] [address] [phone] Platelet mean volume 10.7 9.0-12.7 fL Normal 9 [facility] (d) [Entitic vol] [facility] (30256) Comment: Performed By: #### DHEAS, TD, PROG, E2 #### [facility] [place] [phone] #### EST #### [facility] [address] [place] [address] [phone] Platelets (Bld) [#/Vol] 293 150-400 k/uL Normal 2018 [facility] (17914) Comment: Performed By: #### DHEAS, TD, PROG, E2 #### [facility] [address] [place] [phone] #### EST #### [facility] [address] [place] [address] [phone] RBC (Bld) [#/Vol] 4.85 3.90-5.20 m/uL Normal 03-20-2019 [facility] (54592) Comment: Performed By: #### DHEAS, TD, PROG, E2 #### [facility] [address] [place] [phone] #### EST #### [facility] [address] [place] [address] [phone] WBC (Bld) [#/Vol] 11.40 3.70-11.00 k/uL High 03-20-2019 [facility] (55882) Comment: Performed By: #### DHEAS, TD, PROG, E2 #### [facility] [address] [place] [phone] #### EST #### [facility] [address] [place] [address] [phone] progress on 2019-02 PROGRESS HNO ID: [id number] Normal 03-17-2019 [facility] Author: Hugo Dixon ([id number]) Service: ? Author Type: Physician Type: Progress [...] stroke - Colon Cancer Father age 64 [place] - Diabetes Father Type 2 - Hypertension Father - Coronary Artery Disease Father Hx of [place] - Thyroid Sister hx of parathyroid disease/ [...] CNOV Office Visit (FAMPWS) Normal 03-17-20 19 [facility] JAZLYN Jones ([id number]) 1965 F [facility] Date Time Provider Department (95780) 03/17/19 11:20 AM HUGO NAVA During your [...] stroke - Colon Cancer Father age 64 [place] - Diabetes Father Type 2 - Hypertension Father - Coronary Artery Disease Father Hx of [place] - Thyroid Sister hx of parathyroid disease/ [...] 03/17/19 progress on 2019-02 PROGRESS HNO ID: [id number] Normal 03-08-2019 [facility] Author: Hugo Dixon ([id number]) Service: ? Author Type: Physician Type: Progress [...] stroke - Colon Cancer Father age 64 [place] - Diabetes Father Type 2 - Hypertension Father - Coronary Artery Disease Father Hx of [place] - Thyroid Sister hx of parathyroid disease/ [...] 2019-03-08 CNOV Office Visit (FAMPWS) Normal 03-08-[address] [place] [address] JALZYN Jones ([id number]) 1965 [facility] Date Time Provider Department (46962) 03/08/19 11:20 AM HUGO NAVAWS During your [...] stroke - Colon Cancer Father age 64 [place] - Diabetes Father Type 2 - Hypertension Father - Coronary Artery Disease Father Hx of [place] - Thyroid Sister hx of parathyroid disease/ [...] 9.6 oz) PHYSICAL EXAMINATION: General appearance: Well aib earing, alert, in no acute distress, well-hydrated, [...] TSH Qn 1.920 0.400-5.500 uU/mL Normal 02-16-2019 [facility] (36432) Comment: Performed By: #### TSH #### [facility] [address] [place], [place] [address] urea nitrogen on 12-12-13 Urea nitrogen [Mass/Vol] 15 6 - 23 mg/dL Normal 12-07 [facility] (00 000) Comment: Performed By: #### ALT #### [facility] [address] [place] [address] sedimentation rate, erythrocyte on 2018-12-07 SEDIMENTATION RATE, 22 0 - 30 mm/h Normal 12-07-[address] [facility] ( 23772) Comment: Performed By: #### ESRWS ### # [facility] [address] [place] [address] follow up (rheumatology) on 2018-12-07 Follow Up [...] for 4 years. Tried to apply for [employer]) Review of Systems Constitutional: feeling tired. Cardiovascular: [...] (V19.4) (Z82. 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 Does not exercise (V69.0) (Z72.3) Lack of adequate sleep (V69.4) (Z72.820) Lives in [place] No alcohol use No caffeine use No [...] on Vitals Vital Signs Recorded: 07Dec2018 07:55AM Kfsvmbntmyv13.9 F Heart Rate78 Looxzvmg482 Vgsptyqvw70 Dlteah330 lb BMI Vlzdnbinmy51.83 BSA Calculated1.9 O2 Rlmwaagdgz70 Physical Exam Constitutional General appearance: Alert and [...] exposure to cigarette smoke.; Status:Complete; D one: [id number] 08:07AM Ordered; For:BMI 33.0-33.9,adult; Ordered By:Che Benites; Ophthalmology Follow-Up Outpatient Follow-up Status: Hold Fo r - Scheduling Requested for: [id number] Ordered Stat;For: PMH: Long- term use of [...] se, Serum; Specimen Source:Blood (BLD); Status:Active; Requested for:[id number]; Perform:Lab Services - Lab T o Draw (Blood Test); Due:07Jul2019;Ordered; For:Systemic lupus erythematosus with other organ involvement; Ordered By:Latasha Benites; Anti-dsDNA (Double Stranded) Antibodies; Specimen Source:Blo od (BLD); Status:Active; Requested for:22Oku1302; Perform:Lab Services - Lab T o Draw (Blood Test); Due:07Jul2019;Ordered; For:Systemic lupus erythematosus with other organ involvement; Ordered By:Latasha Benites; AST; Specimen Source:Blood (BLD); Status:Active; Requested f or:60Pjc0743; Perform:Lab Services - Lab T o Draw (Blood Test); Due:07Jul2019;Ordered; For:Systemic lupus erythematosus with other organ involvement; Ordered By:Latasha Benites; Blood Urea Nitrogen, Serum; Specimen Source:Blood (BLD); Status:Active; Requested for:[id number]; Perform:Lab Services - Lab T o Draw (Blood Test); Due:07Jul2019;Ordered; For:Systemic lupus erythematosus with other organ involvement; Ordered By:Latasha Benites; C Reactive Protein, Serum; S pecimen Source:Blood (BLD); Status:Active; Requested for:83Upt1497; Perform:Lab Services - Lab T o Draw (Blood Test); Due:07Jul2019;Ordered; For:Systemic lupus erythematosus with other organ involvement; Ordered By:Latasha Benites; C3 Complement, Serum; Specimen Source:Blood (BLD); Status: Active; Requested for:[id number]; Perform:Lab Services - Lab T o Draw (Blood Test); Due:07Jul2019;Ordered; For:Systemic lupus erythematosus with other organ involvement; Ordered By:Latasha Benites; C4 Complement, Serum; Specimen Source:Blood (BLD); Status: Active; Requested for:[id number]; Perform:Lab Services - Lab T o Draw (Blood Test); Due:07Jul2019;Ordered; For:Systemic lupus erythematosus with other organ involvement; Ordered By:Latasha Benites; Complete Blood Count + Diffe rential; Specimen Source:Blood (BLD); Status:Active; Requested for:[id number]; Perform:Lab Services - Lab T o Draw (Blood Test); Due:07Jul2019;Ordered; For:Systemic lupus erythematosus with other organ involvement; Ordered By:Latasha Benites; Creatinine, Serum; Specimen Source:Blood (BLD); Status:Activ e; Requested for:[id number]; Perform:Lab Services - Lab T o Draw (Blood Test); Due:07Jul2019;Ordered; For:Systemic lupus erythematosus with other organ involvement; Ordered By:Latasha Benites; Sedimentation Rate, Erythrocyte; Specimen Source:Blood (BLD); Status:Active; Requested for:[id number]; Perform:Lab Services - Lab T o Draw [...] Creatinine [Mass/Vol] >60 >60 Normal 12-08-19 19 [facility] (69764) Comment: Performed By: #### ALT #### [facility] [address] [place] [address] Result Comment: CALCULATIONS OF ESTIMATED GFR ARE PERFORMED USING THE MDRD STUDY EQUATIO N FOR THE IDMS-TRACEABLE CREATININE ME THODS. CLIN CHEM 2007;53:766-72 Creatinine [Mass/Vol] 0.84 0.50 - 1.05 mg/dL Normal 2018 [facility] (00 000) Comment: Performed By: #### ALT #### [facility] [address] [place] [address] cbc and differential on 2018-12-07 % AUTOMATED IMMATURE GRAN 0.4 0.0 - 0.9 % Normal 11-24 [facility] (00 000) Comment: Result Comment: Percent diff erential counts (%) should be interpreted in the context of the absolute cell counts (cells/L). Performed By: #### ESRWS ### # [facility] [address] [place] [address] Basophils (Bld) 0.06 0.00 - 0.10 x10E9/L Normal 12-07-2018 [facility] [#/Vol] Center (00 000) Comment: Performed By: #### ESRWS ### # [facility] [address] [place] [address] Basophils/100 WBC (Bld) 0.5 0.0 - 2.0 % Normal 2018 [facility] (17390) Comment: Performed By: #### ESRWS ### # [facility] [address] [place] [address] Eosinophils (Bld) 0.24 0.00 - 0.70 x10E9/L Normal 12-07-2018 [facility] [#/Vol] Center (00 000) Comment: Performed By: #### ESRWS ### # [facility] [address] [place] [address] Eosinophils/100 WBC (Bld) 1.9 0.0 - 6.0 % Normal 11-24 [facility] (00 000) Comment: Performed By: #### ESRWS ### # [facility] [address] [place] [address] Erythrocyte distribution 12.3 11.5 - 14.5 % Normal [facility] width (RBC) [Ratio] Center (39854) Comment: Performed By: #### ESRWS ### # [facility] [address] [place] [address] Hematocrit (Bld) [Volume 51.2 36.0 - 46.0 % High [facility]] Center (00 000) Comment: Performed By: #### ESRWS ### # [facility] [address] [place] [address] Hemoglobin (Bld) 16.4 12.0 - 16.0 g/dL High 12-07-2018 [facility] [Mass/Vol] [place] (0 0000) Comment: Performed By: #### ESRWS ### # [facility] [address] [place] [address] Lymphocytes (Bld) 4.92 1.20 - 4.80 x10E9/L High 12-07-2018 [facility] [#/Vol] [place] (00 000) Comment: Performed By: #### ESRWS ### # [facility] [address] [place] [address] Lymphocytes/100 WBC (Bld) 39.5 13.0 - 44.0 % Normal [facility] (00 000) Comment: Performed By: #### ESRWS ### # [facility] [address] [place] [address] MCHC (RBC) [Mass/Vol] 32.0 32.0 - 36.0 g/dL Normal 2018 [facility] (00 000) Comment: Performed By: #### ESRWS ### # [facility] [address] [place] [address] MCV (RBC) [Entitic vol] 100 80 - 100 fL Normal 2018 [facility] (41136) Comment: Performed By: #### ESRWS ### # [facility] [address] [place] [address] Monocytes (Bld) 1.09 0.10 - 1.00 x10E9/L High 12-07-2018 [facility] [#/Vol] [place] (00 000) Comment: Performed By: #### ESRWS ### # [facility] [address] [place] [address] Monocytes/100 WBC (Bld) 8.8 2.0 - 10.0 % Normal 12-07 [facility] (00 000) Comment: Performed By: #### ESRWS ### # [facility] [address] [place] [address] Neutrophils (Bld) 6.08 1.20 - 7.70 x10E9/L Normal 12-07-2018 [facility] [#/Vol] Center (00 000) Comment: Performed By: #### ESRWS ### # [facility] [address] [place] [address] Neutrophils/100 WBC (Bld) 48.9 40.0 - 80.0 % Normal [facility] (00 000) Comment: Performed By: #### ESRWS ### # [facility] [address] [place] [address] Nucleated RBC/100 WBC 0.0 0.0-0.0 /100 WBC Normal 12-08-19 [facility] (Bld) [Ratio] Center (90882) Comment: Performed By: #### ESRWS ### # [facility] [address] [place] [address] Platelets (Bld) [#/Vol] 287 150 - 450 x10E9/L Normal 2018 [facility] (00 000) Comment: Performed By: #### ESRWS ### # [facility] [address] [place] [address] RBC (Bld) [#/Vol] 5.13 4.00 - 5.20 x10E12/L Normal 12-07-2018 [facility] (00 000) Comment: Performed By: #### ESRWS ### # [facility] [address] [place] [address] WBC (Bld) [#/Vol] 12.4 4.4 - 11.3 x10E9/L High 12-07-2018 [facility] (55017) Comment: Performed By: #### ESRWS ### # [facility] [address] [place] [address] c4 complement on 12-12-13 C4 COMPLEMENT 28 10 - 50 mg/dL Normal 12-07-2018 [facility] (10496) Comment: Performed By: #### ESRWS ### # [facility] [address] [place] [address] c3 complement on 12-12-13 C3 COMPLEMENT 147 87 - 200 mg/dL Normal 12-07-2018 [facility] (79747) Comment: Performed By: #### ESRWS ### # [facility] [address] [place] [address] c-reactive protein on 2018-12-07 CRP [Mass/Vol] 0.14 mg/dL Normal 12-07-2018 [facility] (28810) Comment: Result Comment: REF VALUE < 1.00 Performed By: #### ESRWS ### # [facility] [address] [place] [address] ast on 2018-12-07 AST [Catalytic activity/Vol] 18 9 - 39 U/L Normal 0 12-07-2018 [facility] (00 000) Comment: Performed By: #### ESRWS ### # [facility] [address] [place] [address] anti-dna [ds] on 12-12-13 ANTI-DNA [DS] 1.0 IU/mL Normal 12-07-2018 [facility] (02431) Comment: Result Comment: REF VALUES NEGATIVE: <= 4 IU/ML EQUIVOCAL: 5- 9 IU/ML POSITIVE: >=10 IU/ML Performed By: #### ALT #### [facility] [address] [place] [address] alt on 2018-12-07 ALT [Catalytic activity/Vol] 28 7 - 45 U/L Normal 0 12-07-2018 [facility] (00 000) Comment: Result Comment: Patients alex ated with Sulfasalazine may generate falsely decreased results fo r ALT. Performed By: #### ESRWS ### # [facility] [address] [place] [address] cnpn on 2018-12-06 CNPN Telephone (CDLE) Normal 12-06-2018 [place] JAZLYN Moreira ([id number]) 1965 F ([id number]) Date Time Provider Department 12/06/18 GRAY PENA) CDLBME During your visit today, we recorded the following informati on about you: Gray Pena RN, RN 12/06/2018 1:32 PM Signed Patient phoned for reminder states daughter in labor a nd will not be able to make. [facility] Support Center Director made aware of cancellation Allergies As of [...] Fully Assessed Reason for Visit: Reminder Call [4516] Prescriptions as of 12/06/2018 Sig: ESCITALOPRAM 5 [...] TEST NAME : JAZLYN GARZON Normal 11-09-2018 [facility] EXERCISE PID : [id number] ([id number]) : 1965 Gender : Female Race : ORD : [id number] Procedure Date : Nov 09 2018 13:54:47 [...] Achieved Test Reason : Dizzy Spells Location [facility] Overread By : ROSSY ARZOLA D.O. Edited By : Jolie Razo Referred By : WAYLON GUTIERREZ Acquired by : FRANK BOYCE cnpn on 2018-11-08 CNPN Telephone (CDLBME) Normal 11-08-2018 [facility] JAZLYN GARZON ([id number]) 1965 F ([id number]) Date Time Provider Department 11/08/18 ATIYA SERRATO [...] Fully Assessed Reason for Visit: Reminder Call [2776] Prescriptions as of 11/08/2018 Sig: BLOOD SUGAR [...] ATIYA SERRATO on 11/08/18 [facility]n [facility]11-[facility]) Normal 11-02-2018 [place] JAZLYN Moreira ([id number]) 1965 F (24805) Date Time Provider Department 11/02/18 ATIYA SERRATO (RN) CDLBME During your visit [...] Fully Assessed Reason for Visit: Reminder Call [6676] Prescriptions as of 11/02/2018 Sig: BLOOD SUGAR [...] 2018 ALDOSTERONE 3.5 0.0-30.0 ng/dL Normal 08-10-2018 [facility] (69651) Comment: Result Comment: This test wa s developed and its performance characteristics determined by [facility]. It deleon s not been cleared or approved by the Food and Drug Adminis tration. Performed By: #### ESRWS ### # [facility] [address] [place] [address] acth on 2018-08-05 ACTH 9 0 - 46 pg/mL Normal 08-05-2018 [facility] (48895) Comment: Performed By: #### ESRWS ### # [facility] [address] [place] [address] urea nitrogen on 12-08-10 Urea nitrogen [Mass/Vol] 10 6 - 23 mg/dL Normal 08-04 [facility] (00 000) Comment: Performed By: #### UREA #### [facility] [address] [place] [address] sedimentation rate, erythrocyte on 2018-08-04 SEDIMENTATION RATE, 23 0 - 30 mm/h Normal 08-04-2018 [facility] ( 24763) Comment: Performed By: #### ESRWS ### # [facility] [address] [place] [address] creatinine on 08-04 Creatinine [Mass/Vol] >60 >60 Normal 08-05-19 [facility] (59874) Comment: Performed By: #### CREAT ### # [facility] [address] [place] [address] Result Comment: CALCULATIONS OF ESTIMATED GFR ARE PERFORMED USING THE MDRD STUDY EQUATIO N FOR THE IDMS-TRACEABLE CREATININE ME THODS. CLIN CHEM 2007;53:766-72 Creatinine [Mass/Vol] 0.75 0.50 - 1.05 mg/dL Normal 2018 [facility] (00 000) Comment: Performed By: #### CREAT ### # [facility] [address] [place] [address] cortisol,unspecified on 2018-08-04 CORTISOL,UNSPECIFIED 17.1 2.5 - 20.0 ug/dL Normal 08-05-19 19 [facility] (00 000) Comment: Performed By: #### CORUN ### # [facility] [address] [place] [address] cbc and differential on 2018-08-04 % AUTOMATED IMMATURE GRAN 0.6 0.0 - 0.9 % Normal 07-25 [facility] (00 000) Comment: Result Comment: Percent diff erential counts (%) should be interpreted in the context of the absolute cell counts (cells/L). Performed By: #### CBCDF ### # [facility] [address] [place] [address] Basophils (Bld) 0.09 0.00 - 0.10 x10E9/L Normal 08-04-2018 [facility] [#/Vol] [place] (00 000) Comment: Performed By: #### CBCDF ### # [facility] [address] [place] [address] Basophils/100 WBC (Bld) 0.8 0.0 - 2.0 % Normal 2018 [facility] (84940) Comment: Performed By: #### CBCDF ### # [facility] [address] [place] [address] Eosinophils (Bld) 0.27 0.00 - 0.70 x10E9/L Normal 08-04-2018 [facility] [#/Vol] [place] (00 000) Comment: Performed By: #### CBCDF ### # [facility] [address] [place] [address] Eosinophils/100 WBC (Bld) 2.3 0.0 - 6.0 % Normal 07-25 [facility] (00 000) Comment: Performed By: #### CBCDF ### # [facility] [address] [place] [address] Erythrocyte distribution 12.7 11.5 - 14.5 % Normal [facility] width (RBC) [Ratio] Center (74515) Comment: Performed By: #### CBCDF ### # [facility] [address] [place] [address] Hematocrit (Bld) [Volume 48.5 36.0 - 46.0 % High [facility]] [facility] (00 000) Comment: Performed By: #### CBCDF ### # [facility] [address] [place] [address] Hemoglobin (Bld) 15.6 12.0 - 16.0 g/dL Normal 08-04-2018 [facility] [Mass/Vol] [place] (0 0000) Comment: Performed By: #### CBCDF ### # [facility] [address] [place] [address] Lymphocytes (Bld) 4.04 1.20 - 4.80 x10E9/L Normal 08-04-2018 [facility] [#/Vol] [place] (00 000) Comment: Performed By: #### CBCDF ### # [facility] [address] [place] [address] Lymphocytes/100 WBC (Bld) 34.9 13.0 - 44.0 % Normal [facility] (00 000) Comment: Performed By: #### CBCDF ### # [facility] [address] [place] [address] MCHC (RBC) [Mass/Vol] 32.2 32.0 - 36.0 g/dL Normal 2018 [facility] (00 000) Comment: Performed By: #### CBCDF ### # [facility] [address] [place] [address] MCV (RBC) [Entitic vol] 100 80 - 100 fL Normal 2018 [facility] (10896) Comment: Performed By: #### CBCDF ### # [facility] [address] [place] [address] Monocytes (Bld) 0.99 0.10 - 1.00 x10E9/L Normal 08-04-2018 [facility] [#/Vol] [facility] (00 000) Comment: Performed By: #### CBCDF ### # [facility] [address] [place] [address] Monocytes/100 WBC (Bld) 8.6 2.0 - 10.0 % Normal 08-04 [facility] (00 000) Comment: Performed By: #### CBCDF ### # [facility] [address] [place] [address] Neutrophils (Bld) 6.11 1.20 - 7.70 x10E9/L Normal 08-04-2018 [facility] [#/Vol] [facility] (00 000) Comment: Performed By: #### CBCDF ### # [facility] [address] [place] [address] Neutrophils/100 WBC (Bld) 52.8 40.0 - 80.0 % Normal [facility] (00 000) Comment: Performed By: #### CBCDF ### # [facility] [address] [place] [address] Nucleated RBC/100 WBC 0.1 0.0-0.0 /100 WBC Normal 08-05-19 19 [facility] (Bld) [Ratio] Center (35378) Comment: Performed By: #### CBCDF ### # [facility] [address] [place] [address] Platelets (Bld) [#/Vol] 301 150 - 450 x10E9/L Normal 2018 [facility] (00 000) Comment: Performed By: #### CBCDF ### # [facility] [address] [place] [address] RBC (Bld) [#/Vol] 4.85 4.00 - 5.20 x10E12/L Normal 08-04-2018 [facility] (00 000) Comment: Performed By: #### CBCDF ### # [facility] [address] [place] [address] WBC (Bld) [#/Vol] 11.6 4.4 - 11.3 x10E9/L High 08-04-2018 [facility] (11076) Comment: Performed By: #### CBCDF ### # [facility] [address] [place] [address] c4 complement on 12-08-10 C4 COMPLEMENT 26 10 - 50 mg/dL Normal 08-04-2018 [facility] (59266) Comment: Performed By: #### C4 #### [facility] [address] [place] [address] c3 complement on 12-08-10 C3 COMPLEMENT 157 87 - 200 mg/dL Normal 08-04-2018 [facility] (41754) Comment: Performed By: #### C3 #### [facility] [address] [place] [address] c-reactive protein on 2018-08-04 CRP [Mass/Vol] 0.18 mg/dL Normal 08-04-2018 [facility] (86632) Comment: Result Comment: REF VALUE < 1.00 Performed By: #### CRP #### [facility] [address] [place] [address] ast on 2018-08-04 AST [Catalytic activity/Vol] 19 9 - 39 U/L Normal 0 08-04-2018 [facility] (00 000) Comment: Performed By: #### AST #### [facility] [address] [place] [address] loretta + adarsh panel on 2018-08-04 LORETTA WITH REFLEX TO ADARSH NEGATIVE NEGATIVE Normal 019 [facility] (00 000) Comment: Performed By: #### ESRWS ### # [facility] [address] [place] [address] ANTI-CENTROMERE <0.2 Normal 08-04-2018 [facility] (36450) Comment: Result Comment: REF VALUES < 1.0 = NEGATIVE >=1.0 = POSITIVE Performed By: #### ESRWS ### # [facility] [address] [place] [address] ANTI-CHROMATIN <0.2 Normal 08-04-2018 [facility] (98341) Comment: Result Comment: REF VALUES < 1.0 = NEGATIVE >=1.0 = POSITIVE Performed By: #### ESRWS ### # [facility] [address] [place] [address] ANTI-DNA [DS] 1.0 IU/mL Normal 08-04-2018 [facility] (24327) Comment: Result Comment: REF VALUES NEGATIVE: <= 4 IU/ML EQUIVOCAL: 5- 9 IU/ML POSITIVE: >=10 IU/ML Performed By: #### ESRWS ### # [facility] [address] [place] [address] ANTI-MANOHAR-1 <0.2 Normal 08-04-2018 [facility] (60193) Comment: Result Comment: REF VALUES < 1.0 = NEGATIVE >=1.0 = POSITIVE Performed By: #### ESRWS ### # [facility] [address] [place] [address] ANTI-RIBOSOMAL P <0.2 Normal 08-04-2018 [facility] (59308) Comment: Result Comment: REF VALUES < 1.0 = NEGATIVE >=1.0 = POSITIVE Performed By: #### ESRWS ### # [facility] [address] [place] [address] ANTI-CORRECTIONAL CASEWORK SPECIALIST <0.2 Normal 08-04-2018 [facility] (94713) Comment: Result Comment: REF VALUES < 1.0 = NEGATIVE >=1.0 = POSITIVE Performed By: #### ESRWS ### # [facility] [address] [place] [address] ANTI-SCL-70 <0.2 Normal 08-04-2018 [facility] (69639) Comment: Result Comment: REF VALUES < 1.0 = NEGATIVE >=1.0 = POSITIVE Performed By: #### ESRWS ### # [facility] [address] [place] [address] ANTI-SM <0.2 Normal 08-04-2018 [facility] (59807) Comment: Result Comment: REF VALUES < 1.0 = NEGATIVE >=1.0 = POSITIVE Performed By: #### ESRWS ### # [facility] [address] [place] [address] ANTI-SM/CORRECTIONAL CASEWORK SPECIALIST <0.2 Normal 08-04-2018 [facility] (05648) Comment: Result Comment: REF VALUES < 1.0 = NEGATIVE >=1.0 = POSITIVE Performed By: #### ESRWS ### # [facility] [address] [place] [address] ANTI-SSA <0.2 Normal 08-04-2018 [facility] (32016) Comment: Result Comment: REF VALUES < 1.0 = NEGATIVE >=1.0 = POSITIVE Performed By: #### ESRWS ### # [facility] [address] [place] [address] ANTI-SSB <0.2 Normal 08-04-2018 [facility] (40601) Comment: Result Comment: REF VALUES < 1.0 = NEGATIVE >=1.0 = POSITIVE Performed By: #### ESRWS ### # [place] [address] [place] [address] alt on 2018-08-04 ALT [Catalytic activity/Vol] 34 7 - 45 U/L Normal 0 08-04-2018 [facility] (00 000) Comment: Result Comment: Patients alex ated with Sulfasalazine may generate falsely decreased results fo r ALT. Performed By: #### ALT #### [facility] [address] [place] [address] follow up (rheumatology) on 2018-08-03 Follow Up Chief Complaint Normal 08-03-2018 [facility] (Rheumatology) (0000 0) SLE follow-up History of Present Illness PCP thinks she has POTS--has dizziness, has symptoms after getting out a hot shower. 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 Does not exercise (V69.0) (Z72.3) Lack of adequate sleep (V69.4) (Z72.820) Lives in [place] No alcohol use No caffeine use No [...] Aerosol Soluti on Vitals Vital Signs Recorded: [id number] 07:39AM Paraskgasuy15.1 F, Oral Heart Rate85 Uutocycv240, LUE, Sitting Lmfnzinfu65, LUE, Sitting Blood Pressure Cuff SizeAdult Fczoqp047 lb BMI Ofbywcusul13.43 BSA Calculated1.93 O2 Hmcvjmfdml28 Physical Exam Constitutional General appearance: Alert and [...] - Lab T o Draw (Blood Test); Due:[id number];Ordered; For:Systemic lupus erythematosus with other organ involvement; Ordered By:Latasha Benites; Provider Impressions Patient's primary care provi chay manages all preventive care testing, wellness exams, and vaccinations. Age appropriate recommendations made The patient's labs, radiolog y images and reports, and other tests since previous appointment were obtained, reviewed, and summarized as applicable from the physician portal, electronic medical records s teor and/or outside source s. Pertinent positive and [...] on 2018-06-27 MELINDA Telephone (AGGYNBMG) Normal 9 [facility] FLORAJAZLYN ([id number]) 1965 F Medical Date Time Provider Department Center 06/27/18 KIMBERLY BOLTON ([id number]) During your visit today, we recorded the [...] progress on 2018-05 Protein mass HNO ID: [id number] Normal 06-20-19 19 [facility] Author: Kimberly Bolton General Service: (none) [facility] Author Type: Physician Center Type: Progress Notes ([id number]) Filed: 06/20/2018 10:20 AM Note Text: Jazlyn [...] - Rectocele 05/13/2009 - SVT (supraventricular tachycardia) ([facility]) - Syncope 05/14/2013 -Reported that she had [...] stroke - Colon Cancer Father age 64 [place] - Diabetes Father Type 2 - Hypertension Father - Coronary Artery Disease Father Hx of [place] - Thyroid Sister hx of parathyroid disease/ [...] 6 Occupational History Occupation Employer Comment disabled [employer] Social History Main Topics Smoking status: Current [...] hematuria, nocturia, incontinence. 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 abnormal vaginal discharge, irregular bleedi [...] 2018-06-20 CNOV Office Visit (AGGYNBMG) Normal 2018 [facility] JAZLYN GARZON ([id number]) 1965 F Medical Date Time Provider Department Center 06/20/18 9:30 AM KIMBERLY BOLTON [facility] ([id number]) During your visit today, we recorded the [...] - Rectocele 05/13/2009 - SVT (supraventricular tachycardia) ([facility]) - Syncope 05/14/2013 -Reported that she had [...] stroke - Colon Cancer Father age 64 [place] - Diabetes Father Type 2 - Hypertension Father - Coronary Artery Disease Father Hx of [place] - Thyroid Sister hx of parathyroid disease/ [...] 6 Occupational History Occupation Employer Comment disabled [employer] Social History Main Topics Smoking status: Current [...] hematuria, nocturia, incontinence. 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 abnormal vaginal discharge, irregular bleedi [...] Hives Date Reviewed: 06/20/2018 Reviewed by: Nayeli ([facility]) Wendie - Fully Assessed Reason for Visit: Discuss Hormones [Other] Reason For Visit History Recorded Primary Visit Diagnosis:Symptomatic menopausal or female c limacteric states [N95.1] Other Visit Diagnoses:Postablative hypothyroidism [E89.0] Estrogen deficiency [E28.39] Order(s):T3 FREE BLD [SQFREET3] Order #: [id number] FUTURE T4 FREE/FREE THYROX [SQFT4] Order #: [id number] FUTURE REVERSE T3 [THW6EWX] Order #: [id number] FUTURE T3 BLD [SQT3] Order #: [id number] FUTURE T4/THYROXINE BLOOD [SQT4] Order #: [id number] FUTURE COMPOUNDED PRESCRIPTIONPROGESTERONE CREAM APPLY 5 MG AT HS A S DIRECTEDDisp: 150 mgRfl: 3 COMPOUNDED PRESCRIPTIONTESTOSTERONE CREAM APPLY 0.25MG Q AM DIRECTEDDisp: 7.5 mgRfl: 5 DXA-AXIAL SKELETON [[id number]] Order #: [id number] FUTURE Prescriptions as of 06/20/2018 Sig: SYNTHROID [...] of Service: WELLNESS EXAMS NEW 40-64 YRS [11827] Disposition: Return in about 1 year (around 06/20/2019). Follow-up and Disposition History Recorded Encounter Status:Closed by KIMBERLY BOLTON MD on 06/20/18 follow up (rheumatology) on 2018-01-19 Follow Up Chief Complaint Normal 01-19-2018 [facility] (Rheumatology) Lupus follow up (14578) History of Present Illness The patient is [...] (V19.4) (Z82. 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 Does not exercise (V69.0) (Z72.3) Lack of adequate sleep (V69.4) (Z72.820) Lives in [place] No alcohol use No caffeine use No [...] 17Dec2015 to (Evaluate:16Mar2016) Requested for: ; Last Rx:[id number]; Status: ACTIVE - Renewal Denied, Transmit to [facility] - Awaiting Verification Ordered Rx By: Gray Padilla; D ispense: 30 Days ; #:30 Capsule; Refill: 2;For: PMH: History of muscle pain, PMH: Polyarthralgia; FRANCESCO = N; Transmitted To: [address] Hydroxychloroquine Sulfate 2 00 MG Oral Tablet; take 1 tablet by mouth once daily; Therapy: 22Jan2016 to (Evaluate:02Feb2018) Requested for: ; Last Rx:[id number] Ordered Rx By: Latasha Benites; Dis pense: 30 Days ; #:30 TAB; Refill: 5;For: Systemic lupus erythematosus; FRANCESCO = N; Verified Transmission to [address]; Last Updated By: Shoshana Mann; 08/06/2017 10:00:13 AM ALPRAZolam 1 MG Oral Tablet; TAKE 1 TABLET 3 TIMES DAILY NEEDED; Therapy: [id number] to Recorded Dispense: 0 Days ; #: Suffic ient Tablet; Refill: 0; FRANCESCO = N; Record; Last Updated By: Pati Onofre; 11/13/2015 8:34:25 AM Dexamethasone 1 MG Oral Tablet; Therapy: 72Ale3293 to Recorded Dispense: 1 Days ; #:1 TABS; Refill: 0; FRANCESCO = N; Record; Last Updated By: Latasha Benites; 01/16/2018 4:18:27 PM Duavee 0.45-20 MG Oral Tablet; Therapy: 28Jan2017 to Recorded Dispense: 30 Days ; #:30 TAB S; Refill: 0; FRANCESCO = N; Record; Last Updated By: Latasha Benites; 01/16/2018 4:18:27 PM Estradiol 0.025 MG/24HR Transdermal Patch Weekly; Therapy: 25Oaq7490 to Recorded Dispense: 28 Days ; #:4 [...] to Recorded Dispense: 25 Days ; #:100 AL SC; Refill: 0; FRANCESCO = N; Record; Last Updated By: Latasha Benites; 01/16/2018 4:18:27 PM FreeStyle Lancets Miscellaneous; Therapy: 01Nov2017 to Recorded Dispense: 25 Days ; #:100 AL SC; Refill: 0; FRANCESCO = N; Record; Last Updated By: Latasha Benites; 01/16/2018 4:18:27 PM FreeStyle Lite Test In Vitro Strip; Therapy: 59Due0765 to Recorded Dispense: 25 Days ; #:100 ST RP; Refill: 0; FRANCESCO = N; Record; Last Updated By: Latasha Benites; 01/16/2018 4:18:27 PM Gabapentin 100 MG Oral Capsule; Therapy: 19Oct2017 to Recorded Dispense: 30 Days ; #:60 CAP S; Refill: 0; FRANCESCO = N; Record; Last Updated By: Latasha Benites; 01/16/2018 4:18:27 PM Hydrocortisone 20 MG Oral Tablet; Therapy: 69Qid6567 to Recorded Dispense: 30 Days ; #:480 [...] Natural Magnesium 250 MG Oral Tablet; Therapy: 09Mvw6468 to Recorded Dispense: 30 Days ; #:30 TAB S; Refill: 0; FRANCESCO = N; Record; Last Updated By: Latasha Benites; 01/16/2018 4:18:27 PM RA Vitamin D-3 5000 UNIT Oral Capsule; Therapy: 27Aug2017 to Recorded Dispense: 30 Days ; #:30 CAP S; Refill: 0; FRANCESCO = N; Record; Last Updated By: Latasha Benties; 01/16/2018 4:18:27 PM Testosterone Powder; Therapy: 19Jul2017 to Recorded Dispense: 30 Days ; #:60 POW D; Refill: 0; FRANCESCO = N; Record; Last Updated By: Latasha Benites; 01/16/2018 4:18:27 PM Ventolin HFA 108 (90 Base) MCG/ACT Inhalation Aerosol Soluti on; Therapy: 43Orc1102 to Recorded Dispense: 17 Days ; #:18 AER S; Refill: 0; FRANCESCO = N; Record; Last Updated By: Latasha Benites; 07/22/2016 12:39:12 PM Vitals Vital Signs Recorded: 19Jan2018 07:47AM Vxbtwihfudn65.5 F, Oral Heart Rate91 Yiofuufk625, LUE, Sitting Dcfzthcos37, LUE, Sitting Blood Pressure Cuff SizeAdult Axlvrm857 lb BMI Wtshgqgasf64.83 BSA Calculated1.9 O2 Brxnwmbkhk75 Physical Exam Constitutional General appearance: Alert and [...] 1 TABLET 3 TIMES DAILY NEEDED; Therapy: 16Aes5964 to Recorded Dexamethasone 1 MG Oral Tablet; Therapy: 09Xqt4559 to Recorded Duavee 0.45-20 MG Oral Tablet; Therapy: 52Tzt2791 to Recorded Estradiol 0.025 MG/24HR Transdermal Patch Weekly; Therapy: 03Ska9882 to Recorded Ferrous Gluconate 324 (38 Fe) MG Oral Tablet; Therapy: 08Ziz8694 to Recorded FLUoxetine HCl - 10 MG Oral Capsule; Therapy: 65Iir5824 to Recorded FreeStyle Lancets Miscellaneous; Therapy: 77App7836 to Recorded FreeStyle Lancets Miscellaneous; Therapy: 01Nov2017 to Recorded FreeStyle Lite Test In Vitro Strip; Therapy: 01Nov2017 to Recorded Gabapentin 100 MG Oral Capsule; Therapy: 19Oct2017 to Recorded Gabapentin 300 MG Oral Capsule; TAKE 1 CAPSULE Bedtime; Therapy: 06Hse0417 to (Evaluate:16Mar2016) Requested for: ; Last Rx:[id number]; Status: ACTIVE - Renewal Denied, Transmit to [...] w/o Patient Name: JAZLYN GARZON Normal 10-12-2017 [facility] [place] Contrast FIN: Rupinder yserik [id number] MRI Exam Date/Time 10/12/2017 08:18:01 EDT Exam MRI Brain w/o Contrast Ordering Physician MD STU, TAMMY ASTUDILLO Accession Number [id number] CPT4 Codes 72910 () Reason For Exam dizziness Report MRI [...] on 2017-02-15 Dietary management yes Invalid 02-15-2017 [facility] Surgical education, Interpretation Code 7 Associates guidance, and (64460 ) counseling (procedure) Documentation of Done Invalid 02-15-2017 [facility] Surgical current medications Interpretation Code 02-15-2017 Associates (procedure) (22742) Fall risk No Invalid 02-15-2017 [facility] Ramila gical assessment Interpretation Code 7 Associates (69910) Protein mass conc Done Invalid 02-15-2017 [facility] Surgical Interpretation Code 02-15-2017 Associates (09334) Protein mass conc yes Invalid 02-15-2017 [facility] Surgical Interpretation Code 02-15-2017 Associates (00722) Smoking cessation yes Invalid 02-15-2017 [facility] Surgical education Interpretation Code 02-15-2017 Associates (procedure) (60813) Tobacco smoking Never Invalid 02-15-2017 - [facility] Surgical status NHIS Interpretation Code 02-16-20 17 Associates (03396) Tobacco smoking Current every Invalid 02-15-2017 - [facility] Surgical status KSIS day smoker Interpretation Code 017 Associates (11726) Tobacco use CPHS Current every Invalid 7 - [facility] Surgical day smoker Interpretation Code 7 Associates (09069) office visit: discuss endo on 2017-01-13 Dietary management yes Invalid 01-13-2017 - [facility] Surgical education, Interpretation Code 7 Associates guidance, and (77566 ) counseling (procedure) Documentation of Done Invalid 01-13-2017 - [facility] Surgical current medications Interpretation Code 01-13-2017 Associates (procedure) (37541) Fall risk No Invalid 01-13-2017 - [facility] Ramila gical assessment Interpretation Code 7 Associates (81974) Protein mass conc Done Invalid 01-13-2017 - [place] Interpretation Code 01-13-2017 [facility] (67685) Protein mass conc yes Invalid 01-13-2017 - [place] Interpretation Code 01-13-2017 [facility] (14953) Smoking cessation yes Invalid 01-13-2017 - [facility] Surgical education Interpretation Code 01-13-2017 Associates (procedure) (53846) Tobacco smoking Current Invalid 01-13-2017 - [place] status KSIS every day Interpretation Code 01-14-20 17 [facility] smoker (39672) Tobacco smoking Never Invalid 01-13-2017 - [facility] Surgical status [facility] Interpretation Code 01-14-20 17 Associates (92795) Tobacco use CPHS Current Invalid 01-13-2017 - [facility] Surgical every day Interpretation Code 01-13-2017 Associates smoker (53886) replaced document: midmark ecg observati ons on 2017-01-08 EKG QRS axis 80 deg Invalid 01-08-2017 - [place] Interpretation 01-08-2017 [facility] Code (51978) electrocardiogram Sinus Rhythm Invalid 7 - [facility] interpretation -Nonspecific Interpretation 017 Group (66078) ST depression Code -[place] c. ABNORMAL GE use only - for 417 ms Invalid 01-08-2017 - [facility] import when Interpretation Group (18883) terms are not Code otherwise specified Interpretation Sinus Rhythm Invalid 01-08-2017 - [place] -Nonspecific Interpretation 01-08-[address] depression Code (53876 ) -[place] c. ABNORMAL P [place] 49 deg Invalid 01-08-2017 - [place] Interpretation 01-08-2017 [facility] Code (35453) P wave axis, 49 deg Invalid 01-08-2017 - [facility] electrocardiogram Interpretation 017 Group (49028) Code [place] Interval 130 ms Invalid 01-08-2017 - [place] Interpretation 01-08-2017 [facility] Code (35783) IL interval, 130 ms Invalid 01-08-2017 - [facility] electrocardiogram Interpretation 017 Group (49949) Code Pulse (Heart Rate) 96 BPM /min Invalid 01-08-2017 - [facility] Interpretation 01-08-2017 Grou p (86407) Code QRS axis, 80 deg Invalid 01-08-2017 - [facility] electrocardiogram Interpretation 017 Group (08515) Code QRS Duration 92 ms Invalid 01-08-2017 - [place] Interpretation 01-08-2017 [facility] Code (57194) QRS duration, 92 ms Invalid 01-08-2017 - [place] [facility] electrocardiogram Interpretation 017 Group (29810) Code QT Interval new path ms Invalid 01-08-2017 - [place] Interpretation 01-08-2017 [facility] Code (07524) QT interval, new path ms Invalid 01-08-2017 - [place] [facility] electrocardiogram Interpretation 017 Group (05265) Code QTc [place] 417 ms Invalid 01-08-2017 - [place] Interpretation 01-08-2017 [facility] Code (05395) T [place] 58 deg Invalid 01-08-2017 - [place] Interpretation 01-08-2017 [facility] Code (36628) T wave axis, 58 deg Invalid 01-08-2017 - [facility] electrocardiogram Interpretation 017 Group (53479) Code office visit: rishi wheat 2017-01-08 Dietary management yes Invalid 01-08-2017 - [facility] education, Interpretation Code 7 Group (92479) guidance, and counseling (procedure) Documentation of Done Invalid 01-08-2017 - [facility] current medications Interpretation Code 01-08-2017 Group (83686) (procedure) Fall risk No Invalid 01-08-2017 - [facility] assessment Interpretation Code 7 Group (94564) Smoking cessation yes Invalid 01-08-2017 - [facility] education Interpretation Code 01-08-2017 Group (75160) (procedure) Tobacco use CPHS Current every Invalid 7 - [facility] day smoker Interpretation Code 7 Group (51729) lab report: pap i-g hpv hi risk on 2016-12-19 GE use only - Negative Negative Invalid 12-19-2016 - [place] for [facility] Interpretation Code 2016 [facility] import when (21511) terms are not otherwise specified HPV HC,HGH RISK Negative Negative 12-19-2016 - [place] 12-19-2016 [facility] (65250) office visit: est annual on 2016-12-14 Documentation of Done Invalid 12-14-2016 - [place] current medications Interpretation Code 12-14-2016 [facility] (procedure) (25470) Fall risk No 12-14-2016 - [place] assessment 12-14-2016 [facility] (97723) Hemoglobin.gastroin not done 12-14-2016 - [place] testinal Ql (St) 12-14-2016 [facility] (06423) Protein mass conc Done 12-14-2016 - [place] 12-14-2016 [facility] (55824) Tobacco smoking Current 12-14-2016 - [place] status NHIS every day 12-14-2016 [facility] smoker (32372) Tobacco smoking Never 12-14-2016 - [place] status NHIS 12-14-2016 [facility] (77247) Tobacco use CPHS Current Invalid 12-14-2016 - [place] every day Interpretation Code 12-14-2016 [facility] smoker (31743) replaced document: (p) culture, urine on 2016-11-30 CUUR . 11-30-2016 - [place] [facility] 11-30-2016 Care (905 91) GE use only - for . Invalid Interpretation 11-30-2016 [facility] import Code 11-30-2016 Ca re (76677) when terms are not otherwise specified microbiology: (p) culture, urine on 2016-11-29 GE use only - Urine Invalid 11-29-2016 - [facility] for [facility] CultureCulture Interpretation Code 0 11-29-2016 [facility] import when exhibits no growth. (48871) terms are not otherwise specified office visit: patient concerned about cy st on 2016-11-27 Albumin Ql (U) negative 11-27-2016 - [place] 11-27-2016 [facility] (99238) Appearance Nom (U) cloudy 11-27-2016 - [place] 11-27-2016 [facility] (99360) Bilirubin Ql (U) negative 11-27-2016 - [place] 11-27-2016 [facility] (85721) blood in urine non-hemolyzed Invalid 11-27-2016 [place] (hemoglobin) by trace Interpretation 7 [facility] dipstick Code (79694) Color Nom (U) lt. yellow 11-27-2016 - [place] 11-27-2016 [facility] (59298) Documentation of Done Invalid 11-27-2016 [place] current Interpretation 11-27-2016 [facility] medications Code (26911) (procedure) Fall risk No Invalid 11-27-2016 [facility] [place] assessment Interpretation 11-27-2016 [facility] Code (95882) Glucose Test strip negative 11-27-2016 [place] mass conc (U) 11-27-2016 [facility] (69524) Hemoglobin.gastroi not done Invalid 11-27-2016 [place] ntestinal Ql (St) Interpretation 017 [facility] Code (68973) Ketones mass conc negative 11-27-2016 [place] (U) 11-27-2016 [facility] (66452) Leukocyte esterase negative 11-27-2016 [place] Test strip Ql (U) 11-27-2016 [facility] (56221) Nitrite Ql (U) negative 11-27-2016 - [place] 11-27-2016 [facility] (65953) pH (U) 5.0 [pH] [facility] (18477) Protein mass conc Done 11-27-2016 - [place] 11-27-2016 [facility] (96026) Protein mass conc yes 11-27-2016 - [place] 11-27-2016 [facility] (55725) Smoking cessation yes Invalid 11-27-2016 - [place] education Interpretation 11-27-2016 [facility] (procedure) Code (46156) Specific gravity 1.010 11-27-2016 [place] Refractometry 11-27-2016 [facility] Relative Density (44 691) (U) specific gravity, 1.010 Invalid 11-27-2016 [place] urine Interpretation 11-27-2016 [facility] Code (84713) Tobacco smoking Current every 11-27-2016 - [place] status KSIS day smoker 11-27-2016 [facility] (54251) Tobacco smoking Never Invalid 11-27-2016 - [place] status NHIS Interpretation 11-27-2016 [facility] Code (43098) Tobacco use CPHS Current every Invalid - [place] day smoker Interpretation 11-27-2016 [facility] Code (81165) Urine, bilirubin negative Invalid 11-27-2016 [place] presence Interpretation 11-27-2016 [facility] Code (23629) Urine, glucose negative Invalid 11-27-2016 - [place] presence Interpretation 11-27-2016 [facility] Code (57523) Urine, ketones negative Invalid 11-27-2016 - [place] presence Interpretation 11-27-2016 [facility] Code (22861) Urine, nitrite negative Invalid 11-27-2016 - [place] presence Interpretation 11-27-2016 [facility] Code (71476) Urine, pH 5.0 [pH] Invalid 11-27-2016 [facility] Interpretation 11-27-2016 [facility] Code (34530) Urine, protein negative mg/dL Invalid 11-27-2016 - [place] Interpretation 11-27-2016 [facility] Code (24969) Urobilinogen Test negative 11-27-2016 - [place] strip Ql (U) 11-27-2016 [facility] (92730) office visit: est annual on 2016-11-16 Fall risk assessment No 7 - [facility] Surgical 11-16-2016 Associate s (90431) Protein mass conc Done 11-16-2016 - [facility] Surgical 11-16-2016 Associate s (20817) Tobacco smoking Current every day 2016 - [facility] Surgical status KSIS smoker 11-16-2016 [facility] (55722) Tobacco smoking Never 11-16-2016 - [facility] Surgical status KSIS 11-16-2016 Assoc[facility] inocencio (09195) office visit: mmm o n 2014-08-22 cardiac risk group B 08-22-2014 - [facility] Surgical 08-22-2014 Associate s (92838) Dietary management yes Invalid 08-22-2014 [facility] education, Interpretation 08-22-2014 [facility] guidance, and Code (74452 ) counseling (procedure) General Not enough 08-22-2014 [facility] Patterson rgical cardiovascular information 08-22-2014 As sociates disease 10Y risk (90 452) [#] [place] no Protein mass conc yes 08-22-2014 - [facility] Surgical 08-22-2014 Associate s (50468) chart maintenance o n 2013-11-20 Hematocrit (HCT) 42.5 % Invalid 11-20-2013 - [place] Interpretation Code 11-20-2013 [facility] (79043) Hematocrit Volume 42.5 % 11-20-2013 [facility] Surgical Fraction (Bld) 11-20-2013 Asso ciainocencio (86035) Hemoglobin mass 14.5 g/dL 11-20-2013 - [facility] Surgical conc (Bld) 11-20-2013 Associat es (55176) Platelets 272 10*3/mm3 Invalid 11-20-2013 - [facility] Interpretation Code 11-20-2013 [facility] (74081) Platelets #/vol 272 10*3/mm3 11-20-2013 - [facility] Surgical (Bld) 11-20-2013 Associate s (17450) WBC #/vol (Bld) 10.2 10*9/L 11-20-2013 - [facility] 11-20-2013 Associate s (17868) WBC (Leukocytes) 10.2 10*9/L Invalid 11-20-2013 - [place] Interpretation Code 11-20-2013 [facility] (60225) chart maintenance o n 2013-10-21 Anion gap 7 mmol/L Invalid 10-21-2013 - [facility] [place] Interpretation Code 10-21-2013 [facility] (53087) Anion gap 4 molar 7 Invalid 10-21-2013 - [place] conc Interpretation Code 10-21-2013 [facility] (65596) Anion gap molar 7 mmol/L 10-21-2013 - [facility] 10-21-2013 Associate s (66652) Calcium mass conc 8.9 mg/dL 10-21-2013 - [facility] Surgical 10-21-2013 Associate s (33649) Chloride molar 109 mmol/L High 10-21-2013 - [facility] Surgical conc 10-21-2013 Associate s (77528) CO2 26 mmol/L Invalid 10-21-2013 - [facility] [place] Interpretation Code 10-21-2013 [facility] (98754) CO2 ppres (BldV) 26 mmol/L 10-21-2013 - [facility] Surgical 10-21-2013 Associate s (73019) Creatinine mass 0.8 mg/dL 10-21-2013 - W Surgical conc 10-21-2013 Associate s (07284) Glucose 118 mg/dL [facility] (49890) Glucose mass conc 118 mg/dL High 10-21-2013 - [facility] Surgical 10-21-2013 Associate s (00892) Potassium molar 3.4 mmol/L Low 10-21-2013 - [facility] Surgical conc 10-21-2013 Associate s (35011) Sodium molar conc 142 mmol/L 10-21-2013 - [facility] Surgical 10-21-2013 Associate s (57695) Thyrotropin Qn 3.36 u[iU]/mL 10-21-2013 - [facility] Surgical 10-21-2013 Associate s (57215) Urea nitrogen 8 mg/dL 10-21-2013 - [facility] Surgical mass conc 10-21-2013 Associate s (53653) Urea 10.0 mg/mg 10-21-2013 - [facility] Ramila gical nitrogen/Creatini 10-21-2013 A ssociates ne mass ratio (33286 ) clinical lists update: preload on 2012-12-28 Erythrocytes (RBC) 5.04 10*6/uL Invalid 12-28-2012 - [place] Interpretation Code 12-28-2012 [facility] (59618) MCH 32.3 pg High 12-28-2012 - [place] 12-28-2012 [facility] (91189) MCH Entitic mass 32.3 pg High 12-28-2012 - [facility] Surgical (RBC) 12-28-2012 Associate s (22597) MCV 94.2 fL Invalid 12-28-2012 - [facility] [place] Interpretation Code 12-28-2012 [facility] (47344) MCV Entitic volume 94.2 fL 12-28-2012 - [facility] Surgical (RBC) 12-28-2012 Associate s (99802) RBC #/vol (Bld) 5.04 10*6/uL 12-28-2012 - [facility] Surgical 12-28-2012 Associate s (81445) replaced document: midmark ecg observati ons on 2012-11-25 EKG QRS axis 54 deg 11-25-2012 - [facility] Surgical 11-25-2012 Associate s (51745) electrocardiogram Sinus Rhythm Invalid 3 - [place] interpretation -With rate Interpretation 3 [facility] variation cv Code (15715) = 10.-Nonspecif ic ST depression -[place] c . ABNORMAL Interpretation Sinus Rhythm 11-25-2012 - [facility] Surgical -With rate 11-25-2012 Associat es variation cv (15754) = 10.-Nonspecif ic ST depression -[place] c . ABNORMAL P [place] 49 deg 11-25-2012 - [facility] Ramila gical 11-25-2012 Associate s (15997) P wave axis, 49 deg Invalid 11-25-2012 - [place] electrocardiogram Interpretation 013 [facility] Code (06514) IL Interval 132 ms 11-25-2012 - [facility] S urgical 11-25-2012 Associate s (68627) IL interval, 132 ms Invalid 11-25-2012 - [place] electrocardiogram Interpretation 013 [facility] Code (77806) Pulse (Heart Rate) 73 BPM /min Invalid 11-25-2012 - [place] Interpretation 11-25-2012 [facility] Code (83629) Pulse (Heart Rate) 413 ms Invalid 11-25-2012 - [place] Interpretation 11-25-2012 [facility] Code (09141) QRS axis, 54 deg Invalid 11-25-2012 - [place] electrocardiogram Interpretation 013 [facility] Code (66972) QRS Duration 96 ms 11-25-2012 - [facility] Surgical 11-25-2012 Associate s (01191) QRS duration, 96 ms Invalid 11-25-2012 - [place] electrocardiogram Interpretation 013 [facility] Code (55529) QT Interval new path ms 11-25-2012 - [facility] Surgical 11-25-2012 Associate s (55732) QT interval, new path ms Invalid 11-25-2012 - [facility] electrocardiogram Interpretation 013 [facility] Code (93255) T [place] 48 deg 11-25-2012 - [facility] Ramila gical 11-25-2012 Associate s (78135) T wave axis, 48 deg Invalid 11-25-2012 - [place] electrocardiogram Interpretation 013 [facility] Code (77341) ekg report: midmark ecg observations on 2012-11-25 QTc Silva 412 ms 11-25-2012 - 2012 [facility] (13992) Vital Signs Vital Sign Description Value / Unit Date Location The following section is limited to 5 en tries per type and includes entries from the following time range: [id number] - [id number] 0. BMI (Body Mass Index) 37.49 kg/m2 01-13-2017 - 01-13-2017 [facility] (33989) BMI (Body Mass Index) 37.55 kg/m2 01-08-2017 - 01-08-2017 [facility] (04318) BMI (Body Mass Index) 37.13 kg/m2 12-14-2016 - 12-14-2016 [place] [facility] (16645) BMI (Body Mass Index) 36.58 kg/m2 11-27-2016 - 11-27-2016 [facility] (10180) BMI (Body Mass Index) 36.94 kg/m2 11-16-2016 - 11-16-2016 [facility] (96951) Body Temperature 98.4 [degF] 01-13-2017 - 01-13-2017 [facility] gical Associates (15933) Body Temperature 97.11 [degF] 12-14-2016 - 12-14-2016 [place] [facility] (11669) Body Temperature 97.1 [degF] 12-14-2016 - 12-14-2016 [place] [facility] (47357) Body Temperature 97.8 [degF] 11-27-2016 - 11-27-2016 [place] [facility] (42091) Body Temperature 97.81 [degF] 11-27-2016 - 11-27-2016 [place] [facility] (11404) Body weight 91.63 kg 02-05-2020 [facility] (96731) BP Diastolic 84 mm[Hg] 02-05-2020 [facility] (02993) BP Diastolic 77 mm[Hg] 01-13-2017 - 01-13-2017 [facility] Surg ical Associates (47249) BP Diastolic 82 mm[Hg] 01-08-2017 - 01-08-2017 [facility] (97872) BP Diastolic 75 mm[Hg] 12-14-2016 - 12-14-2016 [place] [facility] (08170) BP Diastolic 84 mm[Hg] 11-27-2016 - 11-27-2016 [place] [facility] (78582) BP Systolic 142 mm[Hg] 02-05-2020 [facility] (17903) BP Systolic 114 mm[Hg] 01-13-2017 - 01-13-2017 [facility] Surg ical Associates (08967) BP Systolic 120 mm[Hg] 01-08-2017 - 01-08-2017 [facility] (95708) BP Systolic 113 mm[Hg] 12-14-2016 - 12-14-2016 [place] [facility] (96799) BP Systolic 127 mm[Hg] 11-27-2016 - 11-27-2016 [place] [facility] (60658) BSA (Body Surface Area) 1.83 m2 08-22-2014 - 08-22-2014 [facility] (38647) Heart rate 96 /min 01-08-2017 - 01-08-2017 [place] [facility] (02951) Heart rate 413 ms 11-25-2012 - 11-25-2012 [facility] Surg ical Associates (10746) Heart rate 73 /min 11-25-2012 - 11-25-2012 [facility] Surg ical [facility] (48255) Height 157.48 cm 01-13-2017 - 01-13-2017 [facility] Surg ical [facility] (52726) Height 157.48 cm 01-08-2017 - 01-08-2017 [facility] (18741) Height 157.48 cm 12-14-2016 - 12-14-2016 [place] [facility] (82454) Height 157.48 cm 11-27-2016 - 11-27-2016 [place] [facility] (74125) Height 157.48 cm 11-16-2016 - 11-16-2016 [facility] Surg ical Associates (86604) Pulse (Heart Rate) 100 /min 02-05-2020 [facility] (68349) Pulse (Heart Rate) 95 /min 01-13-2017 - 01-13-2017 [facility] S urgical Associates (97790) Respiratory Rate 16 /min 02-05-2020 [facility] ([id number]) Respiratory Rate 18 /min 01-13-2017 - 01-13-2017 [facility] ([id number]) Respiratory Rate 20 /min 01-08-2017 - 01-08-2017 [facility] ([id number]) Respiratory Rate 16 /min 12-14-2016 - 12-14-2016 [facility] ([id number]) Respiratory Rate 16 /min 11-27-2016 - 11-27-2016 [facility] ([id number]) Weight 92.99 kg 01-13-2017 - 01-13-2017 [facility] (56134) Weight 93.13 kg 01-08-2017 - 01-08-2017 [facility] ([id number]) Weight 92.08 kg 12-14-2016 - 12-14-2016 [facility] ([id number]) Weight 90.72 kg 11-27-2016 - 11-27-2016 [facility] ([id number]) Encounters Date Type Reason Provider Location 12-12-2019 - 12-12-2019 Chart abstracting Sleep Center Main Neurology Comment: HSAT Check In (Adult) 02-01-2020 - 02-01-2020 [facility] Hypoxia Hugo Nava [facility] Lexi Comment: Hypoxia (Primary Dx); ANDRESSA (obstructive sleep apnea ); Depression, unspecified depr ession type; Impaired glucose tolerance; Attention deficit hyperactiv ity disorder (ADHD), combined type 01-29-2020 - E-mail encounter [facility] Provider Zack rubio 01-29-2020 from carer 10-12-2017 Patient Dizziness and UNKNOWN PROVIDER [facility] giddiness [facility] ([phone]) Hugo Nava 06-30-2017 Patient [...] - Patient encounter Obstructive sleep Hugo Nava [facility] 01-24-2020 procedure apnea syndrome Lexi Comment: RE: Test Result Question 01-04-2020 - Patient encounter Bacterial Hugo Nava [facility] edicine 01-04-2020 procedure sinusitis [facility] Comment: Bacterial sinusitis (Primary Dx) 12-14-2019 - Patient [facility] 12-14-2019 encounter procedure 12-11-2019 - Patient Postablative [facility] 12-11-2019 encounter hypothyroidism (Pa-C) Ceja [facility] procedure Comment: Swelling of both lower extre mities (Primary Dx); Postablative hypothyroidism; Elevated hemoglobin (HCC) 12-07-2018 Patient encounter Disease -[facility] Medical procedure [facility] ([id number]) 08-03-2018 Patient encounter Disease [facility] ([id number]) 06-20-2018 - Patient encounter SENIA Antonieta Brittany Facility:[facility] 06-20-2018 procedure [facility] LATASHA BOLTON 01-19-2018 Patient encounter Disease [facility] ([id number]) 09-22-2017 Patient encounter Disease [facility] ([id number]) 06-21-2017 Patient encounter Disease [facility] ([id number]) 02-05-2020 - Phys/qhp online Treatment not Marlin [...] Ceja patient 01-29-2020 - [facility] Comment: Results - Sleep Study 01-11-2020 - 01-11-2020 Telephone encounter Antonieta Kwong) Family Medicine Marcial Crawley Comment: needs notes supporting sleep study order 2019 - 2019 Telephone encounter Hugo Lemons [facility] Lexi Comment: results home sleep study Procedures Procedure Name Date Provider Location Polysom 6/>yrs sleep 4/> 12-14-2019 Hugo Cottrell [facility] addl unique attnd ([id number]) Mammography 06-16-2019 - [facility] 06-16-2019 ([id number]) Dietary management 02-15-2017 - [facility] Surgical education, guidance, and 02-15-2017 [facility] ([id number]) counseling Colonoscopy 02-10-2017 - [facility] 02-10-2017 ([id number]) Dietary management 01-13-2017 - Herman michele education, guidance, and 01-13-2017 Care ([phone]) counseling Screening for malignant 01-13-2017 [facility] neoplasm of colon [facility] (07443) Ecg routine ecg w/least 12 01-08-2017 - Ayan Koehler NP [facility] lds w/i&r 01-08-2017 Care ([id number]) Follow Up Appt 6 months 01-08-2017 - Ayan Koehler NP [facility] 01-08-2017 Care ([id number]) PF 01-08-2017 - 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 [facility] 01-08-2017 Care ([id number]) Electrocardiogram, complete 01-08-2017 - Ayan Koehler [facility] 01-08-2017 ([id number]) Follow Up Appt 6 months 01-08-2017 - Ayan Koehler NP [facility] 01-08-2017 ([id number]) PF 01-08-2017 - Ayan Koehler NP [facility] 01-08-2017 ([id number]) Gynecologic examination 12-14-2016 [facility] ([id number]) Screening for malignant 12-14-2016 [facility] neoplasm of cervix [facility] (80115) Gynecologic examination 12-14-2016 [facility] (31414) Screening for malignant 12-14-2016 [facility] neoplasm of cervix [facility] (69627) Bacteria identified in 11-27-2016 - Michelle Sexton [facility] Urine by Culture 12-21-2016 Care ([id number]) Urinalysis 11-27-2016 - [facility] 11-27-2016 [facility] ([id number]) Bacteria identified in 11-27-2016 - Michelle Sexton [facility] Urine by Culture 12-21-2016 Care ([id number]) Dietary management 08-22-2014 - [facility] Surgical education, guidance, and 08-22-2014 [facility] ([id number]) counseling Documentation of current 08-22-2014 - [facility] 08-23-2014 [facility] ([id number]) Follow Up Appt Other 08-22-2014 - Annabella Baker [facility] 08-22-2014 [facility] ([id number]) Smoking cessation education 08-22-2014 - Pati Richardson , [facility] 08-23-2014 [facility] (07406) Documentation of current 08-22-2014 - Pati Richardson, W Surgical medications 08-23-2014 [facility] ([id number] 1) Follow Up Appt Other 08-22-2014 - Pati Richardson, [facility] S urgical 08-22-2014 [facility] ([id number] 1) Smoking cessation education 08-22-2014 - Pati Richardson , [facility] Surgical 08-23-2014 [facility] ([phone] 1) Follow Up Appt 6 months 11-20-2013 [facility] 11-20-2013 Care ([id number]) [facility] 11-20-2013 - Blair Canseco MD [facility] 11-20-2013 Care ([id number]) Follow Up Appt 6 months 11-20-2013 - Blair Canseco MD [facility] Surgical 11-20-2013 Associates ([id number] 1) [facility] 11-20-2013 - Blair Canseco MD [facility] Surgical 11-20-2013 Associates ([phone] 1) Follow Up Appt 6 months 05-25-2013 - Pati Richardson [facility] 05-25-2013 PA-C Care ([id number]) [facility] 05-25-2013 - Pati Richardson [facility] 05-25-2013 PA-C Care ([id number]) Follow Up Appt 6 months 05-25-2013 - Pati Richardson [facility] Surgical 05-25-2013 [facility] ([id number] 1) [facility] 05-25-2013 - Pati Richardson [facility] Surgic al 05-25-2013 [facility] ([phone] 1) Follow Up Appt 3 months 01-11-2013 - Pati Richardson [facility] 05-25-2013 PA-C Care ([id number]) [facility]-11-2013 [facility] ([id number]) Follow Up Appt 3 months 01-11-2013 - Pati Richardson, [facility] Surgical 05-25-2013 [facility] ([id number] 1) PFM 01-11-2013 - Pati Richardson, [facility] Surgic al 05-25-2013 [facility] ([phone] 1) Ecg routine ecg w/least 12 11-25-2012 - Blair Canseco MD [facility] lds w/i&r 11-25-2012 Care ([id number]) Echocardiography 11-25-2012 - Blair Canseco MD [facility] 12-29-2012 Care ([id number]) Follow Up Appt 6 weeks 11-25-2012 - Blair Canseco MD [facility] 11-25-2012 Care ([id number]) MMM 11-25-2012 - Blair Canseco MD [facility] 11-25-2012 Care ([id number]) Stress Echocardiogram 11-25-2012 - Blair Canseco MD [facility] (treadmill) 12-29-2012 Care ([id number]) Xtrnl mobile cv telemetry 11-25-2012 - Blair Canseco MD [facility] Women's w/i&report 30 days 01-11-2013 Care ([id number]) Ecg routine ecg w/least 12 11-25-2012 - Blair Canseco MD W Surgical lds w/i&r 11-25-2012 Associates ([phone] 1) Echocardiography 11-25-2012 - Blair Canseco MD [facility] Surgica l 12-29-2012 Associates ([phone] 1) Follow Up Appt 6 weeks 11-25-2012 - Blair Canseco MD [facility] S urgical 11-25-2012 Associates ([phone] 1) MMM 11-25-2012 - Blair Canseco MD [facility] Surgical 11-25-2012 Associates ([phone] 1) Stress Echocardiogram 11-25-2012 - Blair Canseco MD [facility] (treadmill) 12-29-2012 Associates ([phone] 1) Xtrnl mobile cv telemetry 11-25-2012 - Blair Canseco MD [facility] Surgical w/i&report 30 days 01-11-2013 Associates ([id number]) Oophorectomy [facility] (64252) Plan of Treatment Plan Description Date Location DTAP,TDAP,TD (2 - Td) DTAP,TDAP,TD (2 - Td) 01-26-2028 - [facility] 01-26-2028 ([id number]) LIPID SCREEN LIPID SCREEN 12-03-2024 - [facility] 12-03-2024 ([id number]) HPV TESTING HPV TESTING 11-25-2023 - [facility] 11-25-2023 ([id number]) PAP TESTING PAP TESTING 11-25-2023 - [facility] 11-25-2023 ([id number]) DIABETES SCREEN DIABETES SCREEN 12-03-2022 - [facility] 12-03-2022 ([id number]) MAMMOGRAM MAMMOGRAM 06-16-2021 - [facility] 06-16-2021 ([id number]) ANNUAL PCP TEAM CHRONIC ANNUAL PCP TEAM CHRONIC 01-31-2021 - [facility] DISEASE VISIT DISEASE VISIT 01-31-2021 ([id number]) ANNUAL PCP TEAM CHRONIC ANNUAL PCP TEAM CHRONIC 01-03-2021 - [facility] DISEASE VISIT DISEASE VISIT 01-03-2021 ([id number]) ANNUAL PCP TEAM CHRONIC ANNUAL PCP TEAM CHRONIC 12-10-2020 - [facility] DISEASE VISIT DISEASE VISIT 12-10-2020 ([id number]) COLONOSCOPY COLONOSCOPY 02-11-2020 - [facility] 02-11-2020 ([id number]) COLORECTAL CANCER COLORECTAL CANCER 02-11-2020 [facility] inic SCREENING,SEE MODIFIER SCREENING,SEE MODIFIER ([phone]) T4 FREE/FREE THYROX T4 FREE/FREE THYROX Lab 01-25-2020 - [facility] Routine Postablative 12-10-2020 ([id number]) hypothyroidism Expected: 01/25/2020, Expires: 12/10/2020 Comment: Expected: 01/25/2020, s: 12/10/2020 TSH BLD TSH BLD Lab Routine 01-25-2020 - 12-10-2020 [facility] ([id number]) Postablative hypothyroidism Expected: 01/25/2020, Expires: 12/10/2020 Comment: Expected: 01/25/2020, s: 12/10/2020 INFLUENZA (#1) INFLUENZA (#1) 2019 - [facility] 12-26-2019 ([id number]) Appointment Appointment 09-15-2017 - [facility] 09-15-2017 ([id number]) Appointment Appointment 02-10-2017 - [facility] 02-10-2017 Care ([id number]) Esophagus, Esophagus, 01-14-2017 - [facility] gastroesophageal reflux gastroesophageal reflux 01-14-2017 Care ([id number]) test; Nash probe test; Nash probe Esophagus, Esophagus, 01-14-2017 - [facility] gastroesophageal reflux gastroesophageal reflux 01-14-2017 Care ([id number]) test; Nash probe test; Nash probe Colonoscopy Colonoscopy 01-13-2017 - [facility] 01-13-2017 Care ([id number]) EGD; diagnostic EGD; diagnostic 01-13-2017 - [facility] 01-13-2017 Care ([id number]) Appointment Appointment 01-13-2017 - [facility] 01-13-2017 ([id number]) Colonoscopy Colonoscopy 01-13-2017 - [facility] Surgical 01-13-2017 Associates (4469 1) EGD; diagnostic EGD; diagnostic 01-13-2017 - [facility] Surgical 01-13-2017 Associates ([phone] 1) Appointment Appointment 01-08-2017 - [facility] 01-08-2017 ([id number]) Follow Up Appt 6 months Follow Up Appt 6 months 01-08-2017 - [facility] 01-08-2017 [facility] ([id number]) PFM PFM 01-08-2017 - [facility] 01-08-2017 Care ([id number]) Follow Up Appt 6 months Follow Up Appt 6 months 01-08-2017 - [facility] 01-08-2017 ([id number]) PFM PFM 01-08-2017 - [facility] 01-08-2017 ([id number]) Appointment Appointment 12-14-2016 - [facility] Surgical 12-14-2016 Associates ([phone] 1) *CUUR - Culture, Urine *CUUR - Culture, Urine 11-27-2016 - [facility] Women[facility] ([place]) ([place]) 12-21-2016 Care ([id number]) US Pelvis US Pelvis 11-27-2016 - [facility] 11-30-2016 Care ([id number]) US Transvaginal US Transvaginal 11-27-2016 - [facility] 11-30-2016 Care ([id number]) Appointment Appointment 11-27-2016 - [facility] 11-27-2016 Care ([id number]) *CUUR - Culture, Urine *CUUR - Culture, Urine 11-27-2016 - [facility] ([place]) ([place]) 12-21-2016 Care ([id number]) US Pelvis no information 11-27-2016 - [facility] 11-30-2016 Care ([id number]) US Transvaginal US Transvaginal 11-27-2016 - [facility] n's 11-30-2016 Care ([id number]) SHINGRIX VACCINE (1 of SHINGRIX VACCINE (1 of 12-26-2015 - [facility] 2) 2) 12-26-2015 ([id number]) Follow Up Appt Other Follow Up Appt Other 08-22-2014 - [facility] Women[facility] 08-22-2014 Care ([id number]) Follow Up Appt Other Follow Up Appt Other 08-22-2014 - [facility] 08-22-2014 Associates ([phone] 1) Follow Up Appt 6 months Follow Up Appt 6 months 11-20-2013 - [facility] 11-20-2013 Care ([id number]) MMM MMM 11-20-2013 - [facility] ns 11-20-2013 Care ([id number]) Follow Up Appt 6 months Follow Up Appt 6 months 11-20-2013 - [facility] Surgical 11-20-2013 Associates ([id number] 1) MMM MMM 11-20-2013 - [facility] Surgical 11-20-2013 Associates ([phone] 1) Follow Up Appt 6 months Follow Up Appt 6 months 05-25-2013 - [facility] 05-25-2013 Care ([id number]) PFM PFM 05-25-2013 - [facility] n's 05-25-2013 Care ([id number]) Follow Up Appt 6 months Follow Up Appt 6 months 05-25-2013 - [facility] Surgical 05-25-2013 Associates ([id number] 1) PFM PFM 05-25-2013 - [facility] Surgical 05-25-2013 Associates ([phone] 1) Follow Up Appt 3 months Follow Up Appt 3 months 01-11-2013 - [facility] 01-11-2013 Care ([id number]) PFM PFM 01-11-2013 - [facility] 05-25-2013 Care ([id number]) Follow Up Appt 3 months Follow Up Appt 3 months 01-11-2013 - [facility] Surgical 01-11-2013 Associates ([id number] 1) PFM PFM 01-11-2013 - [facility] Surgical 05-25-2013 Associates ([phone] 1) EKG (In office) EKG (In office) 11-25-2012 - [facility] 11-25-2012 Care ([id number]) Echocardiogram Echocardiogram 11-25-2012 - [facility] n's (complete) (complete) 11-25-2012 Care ([id number]) Follow Up Appt 6 weeks Follow Up Appt 6 weeks 11-25-2012 - [facility] Women's 11-25-2012 Care ([id number]) MMM MMM 11-25-2012 - [facility] 11-25-2012 Care ([id number]) Stress Echocardiogram Stress Echocardiogram 11-25-2012 - [facility] (treadmill) (treadmill) 11-25-2012 Care ([id number]) 30 Day Holter Monitor 30 Day Holter Monitor 11-25-2012 - [facility] Women[facility] 11-25-2012 Care ([id number]) EKG (In office) EKG (In office) 11-25-2012 - [facility] Surgical 11-25-2012 Associates ([phone] 1) Echocardiogram Echocardiogram 11-25-2012 - [facility] Surgical (complete) (complete) 11-25-2012 Associates ([id number] 1) Follow Up Appt 6 weeks Follow Up Appt 6 weeks 11-25-2012 - [facility] Surgical 11-25-2012 Associates ([phone] 1) MMM MMM 11-25-2012 - [facility] Surgical 11-25-2012 Associates (4469 1) Stress Echocardiogram Stress Echocardiogram 11-25-2012 - [facility] Surgical (treadmill) (treadmill) 11-25-2012 Associates (4469 1) 30 Day Holter Monitor 30 Day Holter Monitor 11-25-2012 - [facility] Surgical 11-25-2012 Associates ([phone] 1) ADULT PREVNAR-13 ADULT PREVNAR-13 1984 - [facility] ic 1984 (02317) TWO PNEUMOVAX 5 YEARS TWO PNEUMOVAX 5 YEARS 1984 - [facility] APART PRIOR TO AGE 65 APART PRIOR TO AGE 65 1984 (441 95) (#1) (#1) HEPATITIS C SCREENING HEPATITIS C SCREENING 12-26-1983 - [facility] 12-26-1983 (45420) HIV SCREENING HIV SCREENING 12-26-1983 - [facility] 12-26-1983 ([id number]) PAP TITRATION PSG (CPAP, PAP TITRATION PSG (CPAP, 02-22-2021 [facility] BIPAP, ASV) BIPAP, ASV) Procedures (76976) Routine ANDRESSA (obstructive sleep apnea) 1 Occurrences starting 01/24/2020 until 02/22/2021 Comment: 1 Occurrences starting 01/23 until 02/22/2021 Patient education no information [facility] (92318) no information [facility] (56913) The following information is from the original human readable content Name Dates Details Planned Observations Planned Goals not documented Planned Encounters Appointment; Latasha Benites MD On: 03-May-2019 8:30 Immunizations Vaccine Notes Status Date Location Influenza Seasonal influenza, (completed) 01-10-2018 - [facility] Inj Quadrivalent Age injectable, 01-10-2018 ([id number]) 3+ quadrivalent, contains preservative Payers Payer Name Policy Number Location [facility] ([id number]) [employer] [id number] [facility] ([id number]) [employer] [id number] [facility] (44 195) [id number] [facility] ([id number]) The following information is from the original human readable contentNo Payer Records FoundNo Payer Records FoundNo Payer Records FoundNo Payer Records FoundNo Payer Records FoundNo Payer Records FoundNo Payer Records FoundNo Payer Records FoundNo Payer Records FoundNo Payer Records FoundNo Payer Records Found Social History Type Social History Date Location Description Tobacco smoking status Current every day smoker 1985 - [facility] NHIS 02-05-2020 ([id number]) History SDOH Social 2 12-08-2019 - [facility] in [facility] Get Together 01-28-2020 (55311) History of tobacco use Cigarette Smoker 1985 [facility] (46686) Cigarettes smoked 12-08-2019 - [facility] ic current (pack per day) - 02-05-2020 (62149) Reported Tobacco use and exposure Never used 12-08-2019 - [facility] 02-05-2020 (26844) Alcohol intake Current non-drinker of 12-08-2019 - [facility] alcohol (finding) 02-05-2020 (58070) History SDOH Alcohol 1 12-08-2019 - [facility] Frequency 12-08-2019 (45606) History SDOH Alcohol Std 98 12-08-2019 - [facility] Drinks 12-08-2019 (07852) History SDOH Social 5 12-08-2019 - [facility] Phone 01-28-2020 (44146) NEGATED: Highlighted row - [facility] (08543) History SDOH Social 3 12-08-2019 - [facility] in[facility] 01-28-2020 (48814) History SDOH Physical 0 12-08-2019 - [facility] Activity DPW 12-08-2019 (03516) History SDOH Stress 4 12-08-2019 - [facility] inic 12-08-2019 (28398) History SDOH Education 17 12-08-2019 - [facility] 12-08-2019 (92390) Tobacco Comment Has quit intermittently, 08-13-2016 - [facility] And I'm working on it 08-13-2016 (92415) now. 1st AM cigarette 10-15 minutes after awake. Most desired is that one, or last of day before bed. Prior 8 month quits, resumed after pregnancies completed. TO Sex Assigned At Female [facility] (14006) Exposure to SARS-CoV-2 Not sure [facility] (event) (61602) Exposure to SARS-CoV-2 Unable to assess [facility] (event) (13634) The following information is from the original [...] performance issues are not documented Group-Iggy yen (18302) Mental Status Status Assessment Result Location NEGATED: Highlighted Cognitive status health [facility] rowCognitive function issues are not documented Group-[facility]et (60501) [Interpretation] Summary Purpose Family History No Family [...] Documents on File Type Date Recorded 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 Colon Cancer Father age 64 [place] ? Diabetes Father Type 2 ? Hypertension Father ? Coronary Artery Disease Father Hx of [place] ? 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 [facility] Staff. Visit prep complete. Comments :No The sleep study is scheduled for 12/12. Insurance: Payor: [facility] MEDICAID / Plan: [facility] MEDICAID / Product Type: Medicaid / Payor/Plan Subscr Sex Relation Sub. Ins. ID Effective Group Num 1. NESSA GARZON,JAZLYN M 1965 Female Self [id number] 05/27/16 [facility] [address] Carmen Jenkins documented in this encounterElijahHugo Critso - 01/04/2020 8:40 AM EDT No chief [...] ? Rectocele 05/13/2009 ? SVT (supraventricular tachycardia) ([facility]) ? Syncope 05/14/2013 -Reported that she had [...] stroke ? Colon Cancer Father age 64 [place] ? Diabetes Father Type 2 ? Hypertension Father ? Coronary Artery Disease Father Hx of [place] ? Thyroid Sister hx of parathyroid disease/ [...] with more than 50% of the total kuom-zf-glcw time of the visit in counseling / [...] stroke ? Colon Cancer Father age 64 [place] ? Diabetes Father Type 2 ? Hypertension Father ? Coronary Artery Disease Father Hx of [place] ? Thyroid Sister hx of parathyroid disease/ [...] VASCULAR INSTITUTE SECTION OF REGIONAL CARDIOLOGY Cardiology ([facility]) [address] [facility] [id number] OUTPATIENT VISIT DATE 02/04/2020 PRIMARY CARE PHYSICIAN: Hugo Nava MD [address] [place] [address] REFERRING PHYSICIAN: Hugo Nava MD [address] [facility] [address] CHIEF COMPLAINT: Inappropriate sinus tachycardia and chest [...] Family history: Patient's father had his first AL at age 50. He had stents at [...] ? Rectocele 05/13/2009 ? SVT (supraventricular tachycardia) ([facility]) ? Syncope 05/14/2013 -Reported that she had [...] stroke ? Colon Cancer Father age 64 [place] ? Diabetes Father Type 2 ? Hypertension Father ? Coronary Artery Disease Father Hx of [place] ? Thyroid Sister hx of parathyroid disease/ [...] the years. Had a recent admission to [facility] emergency room on that hospital admission, [...] time spent: < 5 minutes. Marlin Mohamud APRN.WINDOW MAKER documented in this encounter Assessments Diagnosis Swelling [...] CARDIOLOGY NEW PATIENT VISIT LEVEL [address] [place] [address] Status Reason Specialty Diagnoses / Referred By Referred To Procedures Contact Contact Authorized PCP Requested Pulmonary and Diagnoses Hypoxia Hugo Nava Referral Critical Care Procedures CONSULT TO PULM/CRITICAL CARE NEW PATIENT VISIT LEVEL 5 [address] [place] [address] Additional Source Comments FOR RECORDS PERTAINING TO [...] BE BASED ON THE PRIMARY CLINICAL RECORDS. [facility] provides no warranty or guarantee of the accuracy or completeness of information in this document. UNRECOGNIZED CONTENT PROVIDED BELOW FOR UNRECOGNIZED SECTION INFORMATION SOURCE DATE CREATED AUTHOR AUTHOR'S ORGANIZATIO N 10/12/2017 [facility] DATE CREATED AUTHOR AUTHOR'S ORGANIZATIO N 2017 [facility] DATE CREATED AUTHOR AUTHOR'S ORGANIZATIO N 06/15/2018 [facility] DATE CREATED AUTHOR AUTHOR'S ORGANIZATIO N 06/28/2018 [facility] DATE CREATED AUTHOR AUTHOR'S ORGANIZATIO N 12/07/2018 [facility] DATE CREATED AUTHOR AUTHOR'S ORGANIZATIO N 12/10/2018 [facility] DATE CREATED AUTHOR AUTHOR'S ORGANIZATIO N 05/03/2019 [facility] DATE CREATED AUTHOR AUTHOR'S ORGANIZATIO N 02/06/2020 [facility] [place] UNRECOGNIZED CONTENT PROVIDED BELOW FOR UNRECOGNIZED SECTION Source Comments In the event this information is protected by the Federal Confidentiality of Alcohol and Drug Abuse Patient Records regulations: The Federal rules restrict any use of the information to criminally investigate or prosecute any alcohol or drug abuse patient.[facility] the event this information is protected by the Federal Confidentiality of Alcohol and Drug Abuse Patient Records regulations: The Federal rules restrict any use of the information to criminally investigate or prosecute any alcohol or drug abuse patient.[facility] the event this information is protected by the Federal Confidentiality of Alcohol and Drug Abuse Patient Records regulations: The Federal rules restrict any use of the information to criminally investigate or prosecute any alcohol or drug abuse patient.[facility] HospitalIn the event this information is protected by the Federal Confidentiality of Alcohol and Drug Abuse Patient Records regulations: The Federal rules restrict any use of the information to criminally investigate or prosecute any alcohol or drug abuse patient.[facility] HospitalIn the event this information is protected by the Federal Confidentiality of Alcohol and Drug Abuse Patient Records regulations: The Federal rules restrict any use of the information to criminally investigate or prosecute any alcohol or drug abuse patient.[facility] HospitalIn the event this information is protected by the Federal Confidentiality of Alcohol and Drug Abuse Patient Records regulations: The Federal rules restrict any use of the information to criminally investigate or prosecute any alcohol or drug abuse patient.[facility] HospitalIn the event this information is protected by the Federal Confidentiality of Alcohol and Drug Abuse Patient Records regulations: The Federal rules restrict any use of the information to criminally investigate or prosecute any alcohol or drug abuse patient.[facility] HospitalIn the event this information is protected by the Federal Confidentiality of Alcohol and Drug Abuse Patient Records regulations: The Federal rules restrict any use of the information to criminally investigate or prosecute any alcohol or drug abuse patient.[facility] HospitalIn the event this information is protected by the Federal Confidentiality of Alcohol and Drug Abuse Patient Records regulations: The Federal rules restrict any use of the information to criminally investigate or prosecute any alcohol or drug abuse patient.[facility] HospitalIn the event this information is protected by the Federal Confidentiality of Alcohol and Drug Abuse Patient Records regulations: The Federal rules restrict any use of the information to criminally investigate or prosecute any alcohol or drug abuse patient.[facility] HospitalIn the event this information is protected by the Federal Confidentiality of Alcohol and Drug Abuse Patient Records regulations: The Federal rules restrict any use of the information to criminally investigate or prosecute any alcohol or drug abuse patient.[facility] HospitalIn the event this information is protected by the Federal Confidentiality of Alcohol and Drug Abuse Patient Records regulations: The Federal rules restrict any use of the information to criminally investigate or prosecute any alcohol or drug abuse patient.[facility] HospitalIn the event this information is protected by the Federal Confidentiality of Alcohol and Drug Abuse Patient Records regulations: The Federal rules restrict any use of the information to criminally investigate or prosecute any alcohol or drug abuse patient.[facility] UNRECOGNIZED CONTENT PROVIDED BELOW FOR UNRECOGNIZED SECTION [...] CARDIOLOGY NEW PATIENT VISIT LEVEL 5 [id number] [place], [place] [address] Reason Comments Eye Problem UNRECOGNIZED CONTENT PROVIDED [...] most recent sleep study. All faxed to [facility] Sleep lab. elephone Encounter - Antonieta Ceja) - 01/11/2020 4:21 PM EDTPlease copy 12/27/19 Dr. Nava message and send. Too many notes and messages to go through. Can you find date of original test orders? Thanks, Cesar Ceja PA-C b Telephone Encounter - Darlene Donato LPN - 01/11/2020 8:18 AM Jatinder from [facility] Sleep [facility] calling patient is scheduled for [...] up thank you. Patient is seen in [place], I do not have the [place] [facility]. Mague Ivory Ma elephone Encounter [...] - 01/29/2020 12:46 PM EDTLet her know [facility] contacted us. Even the the doctor reading it felt she should be treated with cpap, her insurance if refusing to cover at her level. We could have her see a sleep doc if she is willing. documented in this encounterTelephone Encounter - Hugo Nava - 01/31/2020 8:10 AM EDT noted documented in this encounter
== END 2019-09-11 14:45 | disposition home or self-care (01) ==
PROVIDERS: Emergency Provider Emergency Medicine; PCP Family Medicine
DX: R00.2 Palpitations (principal); R20.2 Paresthesia of skin; I47.1 Supraventricular tachycardia; R42 Dizziness and giddiness; I10 Essential (primary) hypertension; F17.200 Nicotine dependence, unspecified, uncomplicated; Z88.5 Allergy status to narcotic agent; Z90.49 Acquired absence of other specified parts of digestive tract
CPT/HCPCS: 80048; 84484; 85025; 93005; 96360; 99285; J7030; A4216

== ENCOUNTER 2019-09-12 09:27 | Emergency (ER) | payer MEDICAID, SELFPAY ==
[2019-09-11 12:53] VITALS: BMI 38.9
[2019-09-12 09:28] VITALS: BP 150/113; PULSE 107; RESP 18; TEMP 36.1; O2SAT 97; BMI 36.6
--- NOTE | 2019-09-12 09:54 | EKG12_ITS ---
Test Reason : GEN ILL Blood Pressure : / mmHG Vent. Rate : 080 BPM Atrial Rate : 080 BPM P-R Int : 134 ms QRS Dur : 090 ms QT Int : 390 ms P-R-T Axes : 029 011 017 degrees QTc Int : 449 ms Normal sinus rhythm with sinus arrhythmia Normal ECG Confirmed by YEN HARRIS, WILBERT ([id number]), fashion editor BERNA DEL TORO ([id number]) on 09/14/2019 4:05:12 PM Referred By: VAISHNAVI Confirmed By:WILBERT BARLOW MD
--- NOTE | 2019-09-12 09:54 | RAD_ITS ---
STUDY: X-RAY CHEST REASON FOR EXAM: Female, 53 years old. TACHYCARDIA. TECHNIQUE: Single AP portable view of the chest. COMPARISON: August 29, 2019. FINDINGS: Cardiac silhouette unremarkable. Pulmonary vascularity unremarkable. Aorta minimally calcified. No focal patchy airspace opacities. No pleural effusions. Coarse lung markings. Upper abdomen unremarkable. Osseous structures intact with degenerative features. No pneumothorax. RAD/Chest 1 View (Portable) IMPRESSION: No acute cardiopulmonary findings Electronically Signed: Thiago Gooden DO at 10:57 EDT Tel , Service support ,
--- NOTE | 2019-09-12 09:54 | CT_ITS ---
STUDY: CT BRAIN WITHOUT CONTRAST REASON FOR EXAM: Female, 53 years old. HEADACHE AND NUMBNESS RADIATION DOSAGE (If Supplied By Facility): CTDIvol = ( 60.81 ) mGy, DLP = ( 998.67 ) mGycm TECHNIQUE: Transaxial CT imaging of the brain was performed without administration of intravenous contrast material. Individualized dose optimization techniques were used for this CT. COMPARISON: No relevant priors. FINDINGS: Normal soft tissue structures. Normal calvarium. Normal size ventricles and extra-axial spaces for the patient''s age. Normal white matter tracts of the cerebral hemispheres. Normal basal ganglia and thalami. Normal brainstem. Normal cerebellum. There is no intracranial hemorrhage. There are no findings of an acute ischemic infarction. Normal visualized paranasal sinuses. CT/Brain/Head without Contrast IMPRESSION: Normal unenhanced CT scan of the brain. Electronically Signed: Enedina Dick, at 11:15 EDT Tel , Service support ,
--- NOTE | 2019-09-12 09:56 | ED.DCSUM_ITS ---
- ER Visit Summary Date of Service: 09/12/19 Chief Complaint: [Not feeling well] History of Present Illness: The patient is a 53 F [presents to the emergency department with multiple complaints. Patient was seen in the emergency department yesterday for complaint of palpitations and a syncopal episode. Tristin vale states that over the last for 5 days she is been having this burning sensation to her skin. She is had intermittent headaches. She complains of numbness and tingling to her left face and left arm at times. Patient has a pain behind her left shoulder blade. Patient took a Xanax today but did not seem to help her symptoms. She states she feels very shaky and uneasy. She does have history of anxiety. She denies recent travel or surgery. Patient has history of hypertension, history of PSVT, hypothyroidism, palpitations and anxiety. Her work-up in the ER yesterday was unremarkable. Patient is scheduled at some point to have a tilt table test performed.] Physical Examination: [HEENT-PERRLA, EOMI. Cranial nerves II through XII grossly intact. TMs clear. Mucous membranes moist. No adenopathy. Cardiovascular-regular rate and rhythm without murmur or ectopy Lungs-clear to auscultation, chest wall stable without crepitus or subcu emphysema Abdomen-normoactive bowel sounds, soft, nontender, no rebound or rigidity, no peritoneal signs. Neuro ntpd-ajvvsn-sagq and heel reina testing within normal limits, negative Romberg, negative pronator drift, fundi benign Neuro htky-uajqkr-ztsu and heel reina testing within normal limits, negative Romberg, negative for drift, fundi benign Extremities-intact ?4, normal range of motion, normal pulses, atraumatic] Test Results: [EKG obtained arrival shows sinus rhythm with a ventricular rate of 80 bpm with no acute segment changes. CBC with differential is normal. Chemistries unremarkable. Troponin less than 0.015. D-dimer was elevated 2.[address] of the chest was obtained which was negative for PE or dissection. TSH was 1.47. Chest x-ray showed nothing acute. CT scan of the brain without contrast was unremarkable.] Emergency Department Course and Treatment: [] Treatment Plan: [Patient advised to follow-up with her primary care physician within next 3 to 5 days. Patient also will follow-up with her FISH HATCHERY INSPECTOR. 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 She is wondering if her symptoms can be hormonal possibly.] Disposition: [Discharged home in stable condition. Patient advised to follow-up with her FISH HATCHERY INSPECTOR. She has a appointment with her primary care physician in several days. If symptoms do not improve she is advised to follow-up with her neurologist whom she seen in the past for dizzy spells.] Impression: [Palpitations Paresthesias ] This note was generated with Speakap dictation software. It may contain incorrect words, spelling, and punctuation that were not noted in review of the chart prior to signing ED Disposition - Plan for ED Patient: Referrals: Freddy Dee MD [Primary Care Provider] -
[2019-09-12 10:31] LABS: Absolute Lymphocyte Count 2.24 X10^3/uL (0.83-4.51); Absolute Neutrophil Count 5.8 X10^3/uL (2.0-7.7); Basophil# 0.06 X10^3/uL; Basophil% 0.7 % (0-1); Eosinophil# 0.12 X10^3/uL; Eosinophils% 1.3 % (0-5); Hematocrit 46.4 % (37-47); Hemoglobin 15.3 g/dL (12.0-15.0); Lymphocyte # 2.24 X10^3/ul (4.0); Lymphocyte % 24.9 % (19-41); Mean Corpuscular Hgb 32.3 pg (27.0-32.0); Mean Corpuscular Volume 98.1 fL (81-99); Mean Platelet Vol. 9.5 fl (6.2-12.0); Monocyte# 0.71 X10^3/uL; Monocyte% 7.9 % (0-10); NRBC Flagged by Analyzer 0 % (0-5); Neutrophil # 5.79 X10^3/uL (2.7-7.7); Neutrophil % 64.5 % (47-70); Platelet Count 289 K/mm3 (150-450); RBC Distribution Width CV 12.4 % (11.6-14.6); Red Blood Count 4.73 M/mm3 (4.2-5.4)
[2019-09-12 10:47] LABS: D-Dimer Quantitative (DVT/PE) 2.12 FEU/ug/m (0.27-0.49)
--- NOTE | 2019-09-12 10:49 | CT_ITS ---
STUDY: CTA CHEST REASON FOR EXAM: Female, 53 years old. INCREASED HR, BLURRED VISION, SHAKY RADIATION DOSAGE (If Supplied By Facility): CTDIvol = ( 13.17 ) mGy, DLP = ( 529.03 ) mGycm TECHNIQUE: The examination was performed with the intravenous administration of IV 100mL Isovue-370. Post-processing of the angiographic images was performed, with multiplanar reformation and 3D reconstruction. Individualized dose optimization techniques were used for this CT. COMPARISON: None. FINDINGS: Normal enhancement of the main pulmonary artery and right and left pulmonary arteries. Normal enhancement of the bilateral peripheral pulmonary arteries. There is no demonstrated pulmonary embolism. Normal thoracic aorta and visualized great vessels. There is no demonstrated aortic dissection. Normal heart and pericardium. Normal mediastinum. Normal hilar regions. Normal visualized trachea and bronchi. The lungs are well expanded. Normal pulmonary parenchyma. Normal pleura. Normal chest wall structures. There are degenerative changes of thoracic spine. Normal visualized upper abdomen. CT/CTA Chest W/WO Contrast IMPRESSION: No demonstrated pulmonary embolism or arterial dissection. Electronically Signed: Enedina Dick, at 11:41 EDT Tel , Service support ,
[2019-09-12 11:00] LABS: Anion Gap 5 (5-15); BUN 9 mg/dL (7-18); BUN/Creat Ratio 11.4 RATIO (10-20); Calcium,Total 9.2 mg/dL (8.5-10.1); Chloride 107 mmol/L (98-107); Creatinine, Serum 0.79 mg/dL (0.55-1.02); EST Glomerular Filtration Rate 81 mL/min (>60); Est Glom Filt Rate - Afr Amer 98 mL/min (>60); Estimated Creatinine Clearance 65.14 ml/min; Glucose 123 mg/dL (74-106); Potassium 3.5 mmol/L (3.5-5.1); Sodium Level 140 mmol/L (136-145); Thyroid Stim Hormone (TSH) 1.47 uIU/mL (0.358-3.74)
--- NOTE | 2019-09-12 11:53 | ED.DEP ---
ED Disposition - Plan for ED Patient: Instructions: ED Paraesthesias, ED Palpitations, High Blood Pressure (Hypertension) Referrals: Freddy Dee MD [Primary Care Provider] - 3-5 Days
[2019-09-12 12:14] VITALS: BP 159/105; PULSE 79; PULSE 97; RESP 20; O2SAT 95
--- OUTSIDE RECORDS SUMMARY | 2020-02-06 13:07 | XMS RPT_ITS | CCD ---
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 Bryce HARRIS, Haily Unavailable PROVIDER [...] of Location Onset Acetaminophen / Critical, 11-10-2012 [facility] Surgical HYDROcodone Critical - Associates ([id number]) Acetaminophen / Vomiting Unknown, High 07-17-2011 Nickolas dueñas HYDROcodone Translations: - LEAF[facility] System [ Repository HYDROCODONE-ACETAMINOPHEN , HYDROCODONE-ACETAMINOPHEN ] Acetaminophen / [facility] (25968) Acetaminophen / oxyCODONE Vomiting Unknown, High 07-17-2011 Brittany dowling General Translations: [ - Health Syste m OXYCODONE-ACETAMINOPHEN, Rep ository OXYCODONE-ACETAMINOPHEN] Acetaminophen / [facility]yCODONE [facility] (97600) Codeine Translations: [ GI Upset, Vomiting Moderate, 11-25-2012 [facility] Surgical CODEINE, CODEINE] Moderate, - Associates Unknown, High (40724) estradiol / norethindrone Feels wired, Critical, 01-08-2017 [facility] muscles hurt, Critical - Group (94691) lip/mouth burn, feels like asthma flaring, nausea, dizziness Estradiol / Norethindrone Unknown [facility] (72737) ESTRADIOL-NORETHINDRONE Intolerance 10-26-2016 [facility] n [facility] ACET Translations: [ - Health System ESTRADIOL-NORETHINDRONE Repo sitory ACET, ESTRADIOL-NORETHINDRONE ACET] famotidine Critical, 01-08-2017 [facility] - [facility] (89469) Famotidine Translations: Other: See 07-07-2016 [facility] [ FAMOTIDINE (PF), Comments - Health Sy stem FAMOTIDINE (PF)] Repository Famotidine Unknown [facility] (38033) metFORMIN Translations: [ Other: See 10-28-2017 Ak maria elena General METFORMIN, METFORMIN] Comments - Health System Repository methIMAzole Hives Moderate, 11-25-2012 [facility] Surgical Moderate - Associates (95676) methIMAzole Translations: Hives 10-14-2005 Ak maria elena General [ METHIMAZOLE, - Health System METHIMAZOLE] Repository methylprednisoLONE Vomiting Critical, 01-08-2017 [facility] - [facility] (00999) methylPREDNISolone Unknown [facility] (45016) METHYLPREDNISOLONE SODIUM Mental Status Unknown, High 01-22-2014 [facility] SUCC Translations: [ Change - Health System METHYLPREDNISOLONE SODIUM Re pository SUCC, METHYLPREDNISOLONE SODIUM SUCC] Nadolol wheezing, chest Moderate, 01-02-2013 [facility] Surgical tightness Moderate - Associates (11270) Medications Medication Name Sig Date Prescriber Location albuterol VENTOLIN HFA 108 (90 01-08-2017 - [facility] Base) MCG/ACT AERS 01-13-2017 (76579) ALBUTEROL SULFATE [id number] Noman Hernandez MD VENTOLIN HFA 108 (90 Base) 01-08-2017 - 01-13-2017 [facility] (76747) MCG/ACT AERS ALBUTEROL SULFATE [id number] Noman Hernandze MD VENTOLIN HFA 108 (90 Base) 01-08-2017 [facility] (74272) MCG/ACT AERS ALBUTEROL SULFATE [id number] Ayan Koehler AUTO CRANE DRIVER VENTOLIN HFA 108 (90 Base) 01-08-2017 - 01-13-2017 [facility] (37173) MCG/ACT AERS ALBUTEROL SULFATE [id number] Noman Hernandez MD VENTOLIN HFA 108 (90 Base) 01-08-2017 [facility] (40717) MCG/ACT AERS ALBUTEROL SULFATE [id number] Ayan Dmoi Zakia AUTO CRANE DRIVER VENTOLIN HFA 108 (90 Base) 01-08-2017 - 01-13-2017 [facility] (30578) MCG/ACT AERS ALBUTEROL SULFATE [id number] Noman Hernandez MD VENTOLIN HFA 108 (90 Base) 01-08-2017 [facility] (85103) MCG/ACT AERS ALBUTEROL SULFATE [id number] Ayan Domi Zakia AUTO CRANE DRIVER VENTOLIN HFA 108 (90 Base) 01-08-2017 [facility] (43839) MCG/ACT AERS ALBUTEROL SULFATE [id number] Ayan Duron Zakia AUTO CRANE DRIVER VENTOLIN HFA 108 (90 Base) 01-08-2017 [facility] (47942) MCG/ACT AERS ALBUTEROL SULFATE [id number] Ayan Duron Roof AUTO CRANE DRIVER Ventolin HFA 108 (90 Base) 06-03-2016 [facility] (99636) MCG/ACT Inhalation Aerosol Solution Refills: 0 Start : 03-Jun-2016 Active 8 GM Inhaler ALPRAZolam ALPRAZolam 1 MG 11-10-2012 - [facility] Tablet TAKE 1 01-13-2017 [facility] are TABLET 3 TIMES (62714) DAILY NEEDED. Refills: 0 Start : 17-Sep-2015 Active Amoxicillin / amoxicillin-clavul 01-04-2020 - [facility] Clavulanate anic acid 01-14-2020 (44291) (AUGMENTIN) 875-125 mg per tablet Indications: Bacterial sinusitis Take 1 tablet by mouth twice daily for 10 days. 20 tablet 0 01/04/2020 01/14/2020 Active Comment: Take 1 tablet by mouth twice daily for 10 days. Aspirin ASPIRIN 81 MG TABS One 03-30-2012 - --2013 [facility] tablet by mouth daily (19643 ) ASPIRIN [id number] Tabitha Benedict RN ASPIRIN 81 MG TABS One tablet 03-30-2012 - 11-20-2013 [facility] by mouth daily (64124 ) ASPIRIN [id number] Blair Canseco MD bazedoxifene / DUAVEE 0.45-20 MG TABS One 11-27-2016 - Michelle Sutton Estrogens, tablet by mouth daily 01-08-2017 Bryce HARRIS [facility] Conjugated (NURSING HOME) CONJ (20386) ESTROGENS-BAZEDOXIFENE [id number] Michelle Wu MD DUAVEE 0.45-20 MG TABS One 11-27-2016 - [place] tablet by mouth daily 01-08-2017 [facility] CONJ (4469 1) ESTROGENS-BAZEDOXIFENE [id number] Ayan Zakia AUTO CRANE DRIVER DUAVEE 0.45-20 MG TABS One 11-27-2016 Michelle Johansen [place] tablet by mouth daily Bryce HARRIS [facility] re CONJ (07972) ESTROGENS-BAZEDOXIFENE [id number] Michelle Wu MD DUAVEE 0.45-20 MG TABS One 11-27-2016 - [place] tablet by mouth daily 01-08-2017 [facility] CONJ (4469 1) ESTROGENS-BAZEDOXIFENE [id number] Ayan Zakia AUTO CRANE DRIVER DUAVEE 0.45-20 MG TABS One 11-27-2016 Michelle Johansen [place] tablet by mouth daily Bryce HARRIS [facility] re CONJ (29764) ESTROGENS-BAZEDOXIFENE [id number] Michelle Wu MD DUAVEE 0.45-20 MG TABS One 11-27-2016 - [place] tablet by mouth daily 01-08-2017 [facility] CONJ (4469 1) ESTROGENS-BAZEDOXIFENE [id number] Ayan [facility] AUTO CRANE DRIVER DUAVEE 0.45-20 MG TABS One 11-27-2016 Michelle E [place] tablet by mouth daily Bryce HARRIS [facility] re CONJ (36328) ESTROGENS-BAZEDOXIFENE [id number] Michelle Wu MD DUAVEE 0.45-20 MG TABS One 11-27-2016 Michelle E [place] tablet by mouth daily Bryce HARRIS [facility] re CONJ (26415) ESTROGENS-BAZEDOXIFENE [id number] Michelle Wu MD DUAVEE 0.45-20 MG TABS One 11-27-2016 - [place] tablet by mouth daily 01-08-2017 [facility] CONJ (4469 1) ESTROGENS-BAZEDOXIFENE [id number] [facility] AUTO CRANE DRIVER DUAVEE 0.45-20 MG TABS One 11-27-2016 - [place] tablet by mouth daily 01-08-2017 [facility] CONJ (4469 1) ESTROGENS-BAZEDOXIFENE [id number] [facility] AUTO CRANE DRIVER DUAVEE 0.45-20 MG TABS One 11-27-2016 Michelle E [place] tablet by mouth daily Bryce HARRIS [facility] re CONJ (16370) ESTROGENS-BAZEDOXIFENE [id number] Michelle Wu MD DUAVEE 0.45-20 MG TABS One 11-27-2016 Michelle E [place] tablet by mouth daily Bryce HARRIS [facility] re CONJ (45627) ESTROGENS-BAZEDOXIFENE [id number] Michelle Wu MD DUAVEE 0.45-20 MG TABS One 11-27-2016 Michelle E [place] tablet by mouth daily Bryce HARRIS [facility] re CONJ (67801) ESTROGENS-BAZEDOXIFENE [id number] Michelle Wu MD DUAVEE 0.45-20 MG TABS One 11-27-2016 Michelle E [place] tablet by mouth daily Bryce HARRIS [facility] re CONJ (01542) ESTROGENS-BAZEDOXIFENE [id number] Michelle Wu MD Betaxolol BETAXOLOL HCL 10 MG TABS 01-08-2017 - 01-13-2017 [facility] take half a pill by mouth (4 4691) daily BETAXOLOL HCL [id number] Noman Hernandez MD BETAXOLOL HCL 10 MG 03-07-2013 - Pati Richardson [facility] Women's TABS one half (1/2) 01-08-2017 [facility]REG[facility] (80241) tablet by mouth daily BETAXOLOL HCL [id number] Pati Richardson PA-C BETAXOLOL HCL 10 MG 03-07-2013 - [facility] TABS 5mg daily 03-07-2013 Care (71482) BETAXOLOL HCL [id number] Tabitha Benedict RN Blood-Glucose Meter Blood-Glucose Meter 10-22-2017 [facility] (FREESTYLE LITE METER) (FREESTYLE LITE METER) (24890) monitoring kit monitoring kit 1 Each as needed. 1 Each 0 10/22/2017 Active Blood-Glucose Meter (FREESTYLE LITE 10-22-2017 [facility] (17351) METER) monitoring kit 1 Each as needed. 1 Each 0 10/22/2017 Active Blood-Glucose Meter (FREESTYLE LITE 10-22-2017 [facility] (17430) METER) monitoring kit 1 Each as needed. 1 Each 0 10/22/2017 Active Blood-Glucose Meter (FREESTYLE LITE 10-22-2017 [facility] (37020) METER) monitoring kit 1 Each as needed. 1 Each 0 10/22/2017 Active Blood-Glucose Meter (FREESTYLE LITE 10-22-2017 [facility] (57290) METER) monitoring kit 1 Each as needed. 1 Each 0 10/22/2017 Active Blood-Glucose Meter (FREESTYLE LITE 10-22-2017 [facility] (94033) METER) monitoring kit 1 Each as needed. 1 Each 0 10/22/2017 Active Blood-Glucose Meter (FREESTYLE LITE 10-22-2017 [facility] (85227) METER) monitoring kit 1 Each as needed. 1 Each 0 10/22/2017 Active Blood-Glucose Meter (FREESTYLE LITE 10-22-2017 [facility] (00653) METER) monitoring kit 1 Each as needed. 1 Each 0 10/22/2017 Active Blood-Glucose Meter (FREESTYLE LITE 10-22-2017 [facility] (25100) METER) monitoring kit 1 Each as needed. 1 Each 0 10/22/2017 Active Blood-Glucose Meter (FREESTYLE LITE 10-22-2017 [facility] (57005) METER) monitoring kit 1 Each as needed. 1 Each 0 10/22/2017 Active Blood-Glucose Meter (FREESTYLE LITE 10-22-2017 [facility] (79913) METER) monitoring kit 1 Each as needed. 1 Each 0 10/22/2017 Active Blood-Glucose Meter (FREESTYLE LITE 10-22-2017 [facility] (36365) METER) monitoring kit 1 Each as needed. 1 Each 0 10/22/2017 Active Blood-Glucose Meter (FREESTYLE LITE 10-22-2017 [facility] (92572) METER) monitoring kit 1 Each as needed. 1 Each 0 10/22/2017 Active Blood-Glucose Meter (FREESTYLE LITE 10-13-2017 [facility] (30284) METER) monitoring kit 1 Each as needed. 1 Each 0 10/13/2017 Active Blood-Glucose Meter (FREESTYLE LITE 10-13-2017 [facility] (84658) METER) monitoring kit 1 Each as needed. 1 Each 0 10/13/2017 Active Blood-Glucose Meter (FREESTYLE LITE 10-13-2017 [facility] (36216) METER) monitoring kit 1 Each as needed. 1 Each 0 10/13/2017 Active Blood-Glucose Meter (FREESTYLE LITE 10-13-2017 [facility] (99762) METER) monitoring kit 1 Each as needed. 1 Each 0 10/13/2017 Active Blood-Glucose Meter (FREESTYLE LITE 10-13-2017 [facility] (36682) METER) monitoring kit 1 Each as needed. 1 Each 0 10/13/2017 Active Blood-Glucose Meter (FREESTYLE LITE 10-13-2017 [facility] (18468) METER) monitoring kit 1 Each as needed. 1 Each 0 10/13/2017 Active Blood-Glucose Meter (FREESTYLE LITE 10-13-2017 [facility] (95617) METER) monitoring kit 1 Each as needed. 1 Each 0 10/13/2017 Active Blood-Glucose Meter (FREESTYLE LITE 10-13-2017 [facility] (60601) METER) monitoring kit 1 Each as needed. 1 Each 0 10/13/2017 Active Blood-Glucose Meter (FREESTYLE LITE 10-13-2017 [facility] (38181) METER) monitoring kit 1 Each as needed. 1 Each 0 10/13/2017 Active Blood-Glucose Meter (FREESTYLE LITE 10-13-2017 [facility] (90672) METER) monitoring kit 1 Each as needed. 1 Each 0 10/13/2017 Active Blood-Glucose Meter (FREESTYLE LITE 10-13-2017 [facility] (73962) METER) monitoring kit 1 Each as needed. 1 Each 0 10/13/2017 Active Blood-Glucose Meter (FREESTYLE LITE 10-13-2017 [facility] (77106) METER) monitoring kit 1 Each as needed. 1 Each 0 10/13/2017 Active Blood-Glucose Meter (FREESTYLE LITE 10-13-2017 [facility] (39767) METER) monitoring kit 1 Each as needed. 1 Each 0 10/13/2017 Active Comment: 1 Each as needed. CPAP CPAP Indications: ANDRESSA 02-01-2020 [facility] (52026) (obstructive sleep apnea) Initiate Auto PAP @ 5-20 cm of water with humidification. Mask (per patient preference) optional chin strap (if indicated) , filters, tubing, humidifier and lifetime supplies. 1 Device 0 02/01/2020 Active CPAP Indications: ANDRESSA (obstructive 02-01-2020 [facility] (05730) sleep apnea) Initiate Auto PAP @ 5-20 cm of water with humidification. Mask (per patient preference) optional chin strap (if indicated) , filters, tubing, humidifier and lifetime supplies. 1 Device 0 02/01/2020 Active CPAP Indications: ANDRESSA (obstructive 02-01-2020 Hugo [facility] (53802) sleep apnea) Initiate Auto PAP @ 5-20 [...] CD 120 MG 01-02-2013 - [place] [facility] Women[facility] [id number] One tablet 03-30-2013 RN Care (4 4691) by mouth daily DILTIAZEM HCL COATED BEADS [id number] Blair Canseco MD CARDIZEM CD 120 MG 01-02-2013 [facility] [place] [facility] [id number] One tablet Care (08437 ) by mouth daily DILTIAZEM HCL COATED BEADS [id number] Blair Canseco MD CARDIZEM CD 120 MG 01-02-2013 - [facility] omen's [id number] One tablet 03-30-2013 Care (82660 ) by mouth daily DILTIAZEM HCL COATED BEADS 33449594940 Tabitha Benedict RN CARDIZEM CD 120 MG 01-02-2013 - [facility] omen's [id number] One tablet 03-30-2013 Care (60262 ) by mouth daily DILTIAZEM HCL COATED BEADS 29835902616 Tabitha Benedict RN CARDIZEM CD 120 MG 01-02-2013 [place] [facility] [id number] One tablet Care (96130 ) by mouth daily DILTIAZEM HCL COATED BEADS 80417339836 Blair ROJASM CD 120 MG 01-02-2013 - [facility] [id number] One tablet 03-30-2013 Care (79995 ) by mouth daily DILTIAZEM HCL COATED BEADS 43344085414 Tabitha Benedict RN CARDIZEM CD 120 MG 01-02-2013 [place] [facility] [id number]-[id number] One tablet Care (81911 ) by mouth daily DILTIAZEM HCL COATED BEADS 18680345642 Blair Canseco MD CARDIZEM CD 120 MG 01-02-2013 [place] [facility] [id number] One tablet Care (39003 ) by mouth daily DILTIAZEM HCL COATED BEADS 73423741043 Blair Canseco MD CARDIZEM CD 120 MG 01-02-2013 - [facility] [id number] One tablet 03-30-2013 Care (75297 ) by mouth daily DILTIAZEM HCL COATED BEADS 95442380837 Tabitha Benedict RN CARDIZEM CD 120 MG 01-02-2013 [place] [facility] [id number] One tablet Care (14655 ) by mouth daily DILTIAZEM HCL COATED BEADS 26710190098 Blair Canseco MD CARDIZEM CD 120 MG 01-02-2013 - [facility] [id number] One tablet 03-30-2013 Care (45846 ) by mouth daily DILTIAZEM HCL COATED BEADS 26225804289 Tabitha Benedict RN CARDIZEM CD 120 MG 01-02-2013 - [facility] [id number] One tablet 03-30-2013 Care (22164 ) by mouth daily DILTIAZEM HCL COATED BEADS 06344880231 Tabitha Benedict RN CARDIZEM CD 120 MG 01-02-2013 [place] [facility] [id number] One tablet Care (90563 ) by mouth daily DILTIAZEM HCL COATED BEADS 15783539859 Blair Canseco MD CARDIZEM CD 120 MG 01-02-2013 - [place] [facility] omen's [id number]-[id number] One tablet 03-30-2013 Care (24503 ) by mouth daily DILTIAZEM HCL COATED BEADS 16673349015 Tabitha Benedict RN CARDIZEM CD 120 MG 01-02-2013 [place] [facility] Women[facility] [id number]-[id number] One tablet Care (99591 ) by mouth daily DILTIAZEM HCL COATED BEADS 02311919477 Blair Canseco MD CARDIZEM CD 120 MG 01-02-2013 - [facility] omen's [id number] One tablet 03-30-2013 Care (60358 ) by mouth daily DILTIAZEM HCL COATED BEADS 37968769968 HONORIO FordeM CD 120 MG 01-02-2013 [place] RN [place] Women[facility] [id number]-[id number] One tablet Care (39336 ) by mouth daily DILTIAZEM HCL COATED BEADS 66188194480 Blair Canseco MD Estradiol CLIMARA 0.0375 MG/24HR PTWK 11-16-2016 [facility] Apply 1 patch as directed once (88785) each week ESTRADIOL [id number] Ayan Koehler NP ESTRADIOL 0.025 MG/24HR 11-16-2016 Michelle Wu MD [facility] PTWK take as directed (27510) ESTRADIOL [id number] Michelle Wu MD CLIMARA 0.0375 MG/24HR 11-16-2016 [place] [facility] PTWK Apply 1 patch as (71694) directed once each week ESTRADIOL 94010643827 Ayan Koelher NP CLIMARA 0.0375 MG/24HR 11-16-2016 [facility] [facility] PTWK Apply 1 patch as (10145) directed once each week ESTRADIOL 79233650039 Ayan Duron Zakia AUTO CRANE DRIVER CLIMARA 0.0375 MG/24HR 11-16-2016 [facility] PTWK Apply 1 patch as (23701) directed once each week ESTRADIOL [id number] Ayan Duron Roof AUTO CRANE DRIVER CLIMARA 0.0375 MG/24HR 11-16-2016 [facility] PTWK Apply 1 patch as (10220) directed once each week ESTRADIOL [id number] Ayan Duron Roof AUTO CRANE DRIVER CLIMARA 0.0375 MG/24HR 11-16-2016 [facility] PTWK Apply 1 patch as (69411) directed once each week ESTRADIOL 27342709506 Ayan Duron Zakia AUTO CRANE DRIVER famotidine PEPCID 20 MG TABS One 01-08-2017 - [facility] tablet by mouth daily 01-13-2017 Group (37940) FAMOTIDINE 23145584442 Ayan Zakia AUTO CRANE DRIVER levothyroxine SYNTHROID 137 mcg 12-11-2019 Antonieta Berkowitz on tablet Indications: (Pa-C) [facility] Postablative (08666) hypothyroidism Take by mouth 8 tabs daily / weekly 96 tablet 3 12/11/2019 Active SYNTHROID 137 mcg tablet 06-27-2019 - Antonieta Esqueda (Pa-C) [place] Women[facility] Indications: Postablative 12-11-2019 [facility] ( 73123) hypothyroidism Take 1 tablet by mouth once daily. 30 tablet 5 06/27/2019 12/11/2019 Discontinued SYNTHROID 137 MCG TABS 11-16-2016 Lizabeth King [place] [facility] Take one tablet on Wednesday Care ( 28627) LEVOTHYROXINE SODIUM 27929941027 Michelle Wu MD SYNTHROID 137 MCG TABS 11-16-2016 Lizabeth King [place] Women[facility] Take one tablet on Wednesday Care ( 89106) LEVOTHYROXINE SODIUM 82707730896 Michelle Wu MD SYNTHROID 137 MCG TABS 11-16-2016 Lizabeth [place] Women[facility] Take one tablet on [facility] ( 49966) LEVOTHYROXINE SODIUM 69493855392 Michelle Wu MD SYNTHROID 137 MCG TABS 11-16-2016 Lizabeth[place]alia [place] Women[facility] Take one tablet on [facility] ( 05222) LEVOTHYROXINE SODIUM 82057508557 Michelle Wu MD SYNTHROID 137 MCG TABS 11-16-2016 [place] Women[facility] Take one tablet on [facility] Care ( 09932) LEVOTHYROXINE SODIUM 17963746912 Michelle Wu MD SYNTHROID 137 MCG TABS 11-16-2016 [place] Women[facility] Take one tablet on [facility] ( 46663) LEVOTHYROXINE SODIUM [id number] Michelle Wu MD SYNTHROID 137 MCG TABS 11-16-2016 [place] Women[facility] Take one tablet on [facility] ( 64558) LEVOTHYROXINE SODIUM [id number] Michelle Wu MD SYNTHROID 137 MCG TABS 11-16-2016 [place] Women[facility] Take one tablet on [facility] ( 79866) LEVOTHYROXINE SODIUM [id number] Michelle Wu MD SYNTHROID 137 MCG TABS 04-28-2016 [place] [place] Women[facility] Take one tablet on [facility] ( 49056) LEVOTHYROXINE SODIUM 93362907776 Michelle Wu MD Levothyroxine Sodium 125 05-25-2013 [place] [facility] MCG Oral Tablet Pt takes Care (4 4691) 1 tablet Wednesday through Wednesday. Refills: 0 Start : 22-Oct-2016 Active SYNTHROID 125 MCG TABS 05-25-2013 [place] [facility] One tablet by mouth daily Care ( 68829) LEVOTHYROXINE SODIUM [id number] RUKHSANA BakerC SYNTHROID 125 MCG TABS 05-25-2013 [place] [facility] One tablet by mouth daily Care ( 25059) LEVOTHYROXINE SODIUM [id number] Pati Richardson PA-C SYNTHROID 125 MCG TABS 05-25-2013 [place] [facility] One tablet by mouth daily Care ( 59088) LEVOTHYROXINE SODIUM 30946456830 Pati Richardson PA-C SYNTHROID 125 MCG TABS 05-25-2013 [place] [facility] One tablet by mouth daily Care ( 38893) LEVOTHYROXINE SODIUM [id number] Pati Richardson PA-C SYNTHROID 125 MCG TABS 05-25-2013 [place] [facility] One tablet by mouth daily Care ( 52472) LEVOTHYROXINE SODIUM [id number] Pati Richardson PA-C SYNTHROID 125 MCG TABS 05-25-2013 [place] [facility] One tablet by mouth daily Care ( 72794) LEVOTHYROXINE SODIUM 86022743316 Pati Richardson PA-C SYNTHROID 125 MCG TABS 05-25-2013 [place] [facility] One tablet by mouth daily Care ( 70332) LEVOTHYROXINE SODIUM [id number] Pati Richardson PA-C SYNTHROID 125 MCG TABS 05-25-2013 [place] [facility] One tablet by mouth daily Care ( 20160) LEVOTHYROXINE SODIUM 73957016538 Pati Richardson PA-C SYNTHROID 175 MCG TABS 01-11-2013 [place] Women[facility] days a week Care (446 91) LEVOTHYROXINE SODIUM 99168229844 Pati Richardson PA-C SYNTHROID 175 MCG TABS 5 01-11-2013 [place] Women[facility] days a week Care (446 91) LEVOTHYROXINE SODIUM [id number] Pati Richardson PA-C SYNTHROID 175 MCG TABS 5 01-11-2013 [place] Women[facility] days a week Care (446 91) LEVOTHYROXINE SODIUM [id number] Pati Richardson PA-C SYNTHROID 175 MCG TABS 5 01-11-2013 [place] Women[facility] days a week Care (446 91) LEVOTHYROXINE SODIUM [id number] Pati Richardson PA-C SYNTHROID 175 MCG TABS 5 01-11-2013 [place] Women[facility] days a week Care (446 91) LEVOTHYROXINE SODIUM 87786262713 Pati Richardson PA-C SYNTHROID 175 MCG TABS 5 01-11-2013 [place] Women[facility] days a week Care (446 91) LEVOTHYROXINE SODIUM [id number] Pati Richardson PA-C SYNTHROID 175 MCG TABS 5 01-11-2013 [place] Women[facility] days a week Care (446 91) LEVOTHYROXINE SODIUM [id number] Pati Richardson PA-C SYNTHROID 175 MCG TABS 5 01-11-2013 [place] Women[facility] days a week Care (446 91) LEVOTHYROXINE SODIUM [id number] Pati Richardson PA-C LEVOTHYROXINE SODIUM 150 11-10-2012 - [place] [facility] MCG TABS One tablet by 11-25-2012 Care (446 91) mouth on Mondays and Fridays LEVOTHYROXINE SODIUM [id number] Stephanie Torres RN SYNTHROID 175 MCG TABS 5 11-10-2012 [place] Women[facility] days a week Care (446 91) LEVOTHYROXINE SODIUM [id number] Pati Richardson PA-C SYNTHROID 175 MCG TABS 11-10-2012 [place] [facility] One tablet by mouth daily Care ( 76082) LEVOTHYROXINE SODIUM [id number] Stephanie Torres RN SYNTHROID 175 MCG TABS 11-10-2012 [place] [facility] One tablet by mouth daily Care ( 48256) LEVOTHYROXINE SODIUM [id number] Stephanie Torres RN SYNTHROID 175 MCG TABS 11-10-2012 [place] [facility] One tablet by mouth daily Care ( 50890) LEVOTHYROXINE SODIUM [id number] Stephanie Torres RN SYNTHROID 175 MCG TABS 11-10-2012 [place] [facility] One tablet by mouth daily Care ( 54032) LEVOTHYROXINE SODIUM [id number] Stephanie Torres RN SYNTHROID 175 MCG TABS 11-10-2012 [place] [facility] One tablet by mouth daily Care ( 75734) LEVOTHYROXINE SODIUM [id number] Stephanie Torres RN SYNTHROID 175 MCG TABS 11-10-2012 [place] [facility] One tablet by mouth daily Care ( 63394) LEVOTHYROXINE SODIUM [id number] Stephanie Torres RN SYNTHROID 175 MCG TABS 11-10-2012 [place] [facility] One tablet by mouth daily Care ( 75570) LEVOTHYROXINE SODIUM [id number] Stephanie Torres RN SYNTHROID 175 MCG TABS 11-10-2012 [place] [facility] One tablet by mouth daily Care ( 73283) LEVOTHYROXINE SODIUM [id number] Stephanie Torres RN Comment: Take by mouth 8 tabs daily / weekly Take 1 tablet by mouth once daily. Meclizine MECLIZINE HCL 25 MG 11-10-2012 - [place] [facility] TABS One tablet by 11-25-2012 Care (445 77) mouth three times daily As needed MECLIZINE HCL 44223735541 Blair Canseco MD Nadolol NADOLOL 20 MG TABS One 12-08-2012 - [place] Women[facility] tablet by mouth daily 01-02-2013 RN Care ( 16900) NADOLOL [id number] Blair Canseco MD Nitroglycerin NITROGLYCERIN 0.4 03-30-2013 [facility] Surgi satnam MG/HR PT24 1 tablet Associat es (82927) under tongue every 5 min up to 3 X NITROGLYCERIN [id number] Tabitha Benedict, HONORIO Omeprazole OMEPRAZOLE 40 MG CPDR 11-10-2012 - [facility] tablet by mouth 11-25-2012 Care (44 691) twice daily OMEPRAZOLE [id number] Blair Canseco MD PARoxetine PAXIL 10 MG TABS One 01-08-2017 - [facility] tablet by mouth daily 01-13-2017 (59788 ) PAROXETINE HCL [id number] Ayan Koehler NP PAXIL 10 MG TABS One tablet by 01-08-2017 - 01-13-2017 [facility] (19659) mouth daily PAROXETINE HCL [id number] Ayan Koehler NP RA Natural Magnesium RA Natural Magnesium 05-27-2017 [facility] 250 MG Oral Tablet 250 MG Oral Tablet [facility] Refills: 0 Start : (52017) 27-May-2017 Active Spironolactone SPIRONOLACTONE 25 MG 11-10-2012 - [place] [facility] TABS One tablet by 11-25-2012 [facility] (446 91) mouth daily SPIRONOLACTONE [id number] Blair Canseco MD Problems Active Problems Category Problem Name Status Date Location Anxiety disorders Anxiety Active 07-10-2013 [facility] - [facility] (16602) Attention-deficit Attention deficit Active 11-08-2014 [facility]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, - (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 Cardiac dysrhythmias Palpitations Active 11-10-2012 [facility] Women's [facility] (85201) Chronic obstructive Simple chronic bronchitis Active 12-02-19 18 [facility] pulmonary disease and - (00622 ) bronchiectasis Complications of Postprocedural Active 04-06-2006 [facility] procedures or hypothyroidism - [facility] medical care (98994) Conditions associated Dizziness and giddiness Active 10-13-19 18 [facility] with dizziness or - System (00 000) vertigo Esophageal disorders Gastroesophageal reflux Active 7 [facility] Surgical disease - Associates (967 91) Essential hypertension Hypertensive disorder Active 3 [facility] Surgical - Associates (446 91) Heart valve disorders Mitral valve prolapse Active 02-23-2018 [facility] - (08239) Malaise and fatigue Fatigue Active 11-10-2012 [facility] Surg ical - Associates (446 91) Menopausal disorders Menopausal and female Active 12-13-2015 [place] climacteric states - Women's C are (07308) Mood disorders 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 - (47576 ) remission Nonspecific chest pain Chest pain Active 11-25-2012 [facility] S urgical - Associates (446 91) Nutritional deficiencies Decreased vitamin D Active 4 [facility] (97301) Other connective tissue Swelling of bilateral Active [facility] disease lower limbs (48267) Other gastrointestinal Irritable bowel syndrome Active 2017 [facility] disorders with diarrhea - (71589) Other hematologic Increased hemoglobin Active [facility] conditions (03053) Other lower respiratory Hypoxia Active [facility] disease [facility] (53290) Other nervous system Burning sensation of skin Active 018 [facility] disorders - (68096) Other non-traumatic Multiple joint pain Active [facility] (31616) Other nutritional; Body mass index (BMI) Active 08-22-2014 [facility] Surgical endocrine; and metabolic 32.0-32.9, adult - Associates (46002) disorders Other nutritional; Body mass index (BMI) Active 11-20-2013 [place] endocrine; and metabolic 37.0-37.9, adult - - [facility] disorders 09-28-2014 (50746) - Other nutritional; Body mass index 30+ - Active -[facility] endocrine; and metabolic obesity [place] [facility] disorders (41716) Other screening for Electrocardiogram Active 11-25-2012 [facility] Surgical suspected conditions abnormal - Assoc[facility] inoc[facility]io (29274) (not mental disorders or infectious disease) Other skin disorders Eruption Active [facility] (16758) Other upper respiratory Bacterial sinusitis Active [facility] infections (04621) Residual codes; Obstructive sleep apnea Active 01-24-2020 [facility] unclassified syndrome - (60603) Residual codes; Menopause present Active 11-16-2016 [facility] Ramila gical unclassified - Associates (442 91) Screening and history of Tobacco use and exposure Active [facility] mental health and - finding (35162) substance abuse codes Substance-related Tobacco dependence Active 11-10-2012 [facility] Surgical disorders syndrome - Associates (448 91) Systemic lupus Systemic lupus Active 02-14-2018 [facility] erythematosus and erythematosus - [facility] connective tissue (73075) disorders Thyroid disorders Hyperthyroidism Active 01-11-2013 [facility] Ramila gical - Associates (441 91) Unclassified Patient encounter status Active 06-20-2018 [facility] - (19501) Unclassified Cancer cervix screening Active 06-20-2018 [facility] status - (78715) Unclassified Screening for malignant Active 01-13-2017 [facility] Surgical neoplasm of colon - Associates (58020) Unclassified Procedure carried out on Active 12-14-2016 [place] subject - [facility] (64169) Unclassified Gynecologic examination Active 12-14-2016 [place] [facility] (99198) Unclassified Screening for malignant Active 12-14-2016 [place] neoplasm of cervix - Women's C are (54210) Unclassified Treatment not available Active [facility] (94431) Past or Other Problems Category Problem Name Status Date Location Abdominal pain Acute pain in female Completed 11-27-2016 - [facility] Women's pelvis Care (57089) Diabetes mellitus Impaired glucose Completed 09-06-2014 - [facility] without complication tolerance (94300) Diseases of mouth; Sore mouth Completed 02-16-2018 - [facility] excluding dental (80872) Immunizations and Encounter for Completed 12-14-2016 - [facility] Women's screening for screening for human Care (4 6777) infectious disease papillomavirus (HPV) Other and unspecified 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 (37271 ) Other circulatory Elevated Completed 09-06-2014 - [facility] disease blood-pressure reading (5054 5) without diagnosis of hypertension Other circulatory H/O: heart disorder Completed 11-10-2012 - [facility] Surgical disease Associates (232 91) Other lower Dyspnea Completed 11-10-2012 - [facility] Surgical respiratory disease Associat es (31605) Residual codes; Difficulty sleeping Completed 02-16-2018 - [facility] unclassified (92634) Residual codes; Edema Completed 11-10-2012 - [facility] Surgical unclassified Associates (162 94) Residual codes; Family history of Completed [facility] Ramila gical unclassified ischemic heart disease Assoc iates (76196) and other diseases of the circulatory system NEGATED: Highlighted Disease Completed [facility] has not [facility] occurred!Residual (79562) codes; unclassified Residual codes; FH: Hypertension Completed [facility] Surg ical unclassified Associates (617 81) Unclassified Drug therapy finding Completed [facility] (25238) Unclassified History of clinical Completed [facility] finding in subject Group-[place] re[facility] (80416) Results Result Name Value Range Unit Interpretation Flag Date Location progress on 2020-01 PROGRESS HNO ID: [id number] Normal 02-05-2020 [facility] Author: Marlin Mohamud [place] ([id number]) Service: ? Author Type: Nurse Practitioner Type: Progress Notes Filed: 02/05/2020 5:04 PM Note Text: This is an Express Care eVisit note for Jazlyn Garzon eVisit/Questionnaire reviewed The chief complaint for the visit - Patient presents with: Eye Problem Recommendations/Treatment plan - See My Chart Message to [place] Total time spent: < 5 minutes. Marlin Mohamud APRN.FURNACE COMBINATION ANALYST PROGRESS HNO ID: [id number] Normal 02-05-2020 [facility] Author: Richa Rubin [place] ([id number]) Service: ? Author Type: Physician Type: Progress Notes Filed: 02/05/2020 4:29 PM Note Text: [facility]AL [facility]ARDIOLOGY Cardiology ([place] ([facility] [address] [facility] [id number] OUTPATIENT VISIT DATE 02/04/2020 PRIMARY CARE PHYSICIAN: Hugo Nava MD [address] [place] [address] REFERRING PHYSICIAN: Hugo Nava MD [address] [facility] [address] CHIEF COMPLAINT: Inappropriate sinus tachycardia and chest [...] Family history: Patient's father had his first MA at age 50. He had stents at [...] stroke - Colon Cancer Father age 64 MA - Diabetes Father Type 2 - Hypertension Father - Coronary Artery Disease Father Hx of MA - Thyroid Sister hx of parathyroid disease/ [...] the years. Had a recent admission to [facility] emergency room on that hospita l [...] CNOV Office Visit (CAWSTR) Normal 02-05-20 20 [place] [facility] JAZLYN GARZON ([id number]) 1965 [place] Date Time Provider Department (50261) 02/05/20 2:00 PM RICHA RUBINWS During your visit today, we recorded the following informati on about you: Pulse Respiration Blood pressure Weight 100/minute 16/minute 142/84 91.6 kg Richa Rubin MD 02/05/2020 4:29 PM Signed [facility] Cardiology ([facility]) [address] [facility] [address] OUTPATIENT VISIT DATE 02/04/2020 PRIMARY CARE PHYSICIAN: Hugo Nava MD [address] [place] [address] REFERRING PHYSICIAN: Hugo Nava MD [address] [facility] [address] CHIEF COMPLAINT: Inappropriate sinus tachycardia and chest [...] stroke - Colon Cancer Father age 64 MA - Diabetes Father Type 2 - Hypertension Father - Coronary Artery Disease Father Hx of MA - Thyroid Sister hx of parathyroid disease/ [...] the years. Had a recent admission to [facility] emergency room on that hospital admission, [...] Richa Rubin MD Referring Provider: HUGO NAVA [[id number]] Allergies As of Date: 02/05/2020 Noted Allergy [...] [R07.89] Order(s):CONSULT TO CARDIOLOGY [9004] Order #: [id number] : 1 Prescriptions as of 02/05/2020 Sig: [...] 02/05/20 progress on 2020-01 PROGRESS HNO ID: [id number] Normal 02-01-2020 [facility] Author: Hugo Nava [place] ([id number]) Service: ? Author Type: Physician Type: Progress [...] stroke - Colon Cancer Father age 64 MA - Diabetes Father Type 2 - Hypertension Father - Coronary Artery Disease Father Hx of MA - Thyroid Sister hx of parathyroid disease/ [...] prn. progress on 2020-01 PROGRESS HNO ID: [id number] Normal 01-30-2020 [place] Author: Ha Ortiz [facility] Service: ? [place] Author Type: Physician ([id number]) Type: Progress Notes Filed: 01/30/2020 1:44 PM [...] stroke - Colon Cancer Father age 64 MA - Diabetes Father Type 2 - Hypertension Father - Coronary Artery Disease Father Hx of MA - Thyroid Sister hx of parathyroid disease/ [...] Urine <=45.0 ug/d 48.8 (H) Cortisol ug/g Political Theory Professor, Ur (UFRCRT) ug/g [employer]HR[employer]TH MEDIA MIXER 33.64 Free Cortisol UR, Interpretation SEE NOTE [...] 324 ug/d 251 Epinephrine, Ur ratio to MUSHROOM GROWTH MEDIA MIXER 0 - 20 ug/g MUSHROOM GROWTH MEDIA MIXER 6 Norepinephrine, Ur ratio to MUSHROOM GROWTH MEDIA MIXER 0 - 45 ug/g MUSHROOM GROWTH MEDIA MIXER 46 (H) Dopamine, Ur ratio to MUSHROOM GROWTH MEDIA MIXER 0 - 250 ug/g MUSHROOM GROWTH MEDIA MIXER 194 Catecholamines Interpretation SEE NOTE Epinephrine, Ur [...] ug/d 46.3 (H) 48.8 (H) Cortisol ug/g Political Theory Professor, Ur (UFRCRT) ug/g MUSHROOM GROWTH MEDIA MIXER 32.74 33.64 Free Cortisol UR, Interpretation SEE [...] 2.3 Percent free calculation not provided by [place]. Testosterone Free 0.06 - 0.92 ng/dL 8.8 [...] Tryptase <8.4 ug/L 7.2 cnpn on 2020-01-29 [facility] Tele[facility] (FAMPWS) Normal 01-29-2020 [place] JAZLYN Jones ([id number]) 1965 F [facility] Time Provider Department (92331) 01/29/20 HUGO NAVA During your visit today, we recorded the following informati on about you: Hugo Nava MD 01/29/2020 12:47 PM Signed Let her know [place] [facility] lab contacted us. Even the the doctor reading it felt she should be treated w ith cpap, her insurance if refusing to cover at her level. We could have her see a sleep doc if she is willing. Sudha Joesph MARRERO 01/29/2020 1:34 PM Signed [employer] message sent to patient. Allergies As of [...] Hives Date Reviewed: 08/21/2019 Reviewed by: Ofe ([facility]) Yoel - Fully Assessed Reason for [...] PINK LPN on 01/29/20 cnpn on 2020-01-11 [facility] Telephone (FAMPWS) Normal 01-11-2020 [place] JAZLYN Jones ([id number]) 1965 [facility] Date Time Provider Department (95747) 01/11/20 [place] CEJA ([place]) [facility] During your visit today, we recorded the following informati on about you: Darlene Donato LPN 01/11/2020 8:21 AM Signed Michelle from [facility] Sleep Lab satnam ling patient [...] most recent sleep study. All faxed to [facility] S leep lab. Allergies As [...] Hives Date Reviewed: 08/21/2019 Reviewed by: Ofe ([facility]) Yoel - Fully Assessed Reason for [...] 01/11/20 progress on 2019-12 PROGRESS HNO ID: [id number] Normal 01-04-2020 [facility] Author: Hugo Nava [place] ([id number]) Service: ? Author Type: Physician Type: Progress [...] stroke - Colon Cancer Father age 64 MA - Diabetes Father Type 2 - Hypertension Father - Coronary Artery Disease Father Hx of MA - Thyroid Sister hx of parathyroid disease/ [...] more than 50% of the t otal [id number] time of the visit in counseling / coordination of care. obsolete on 2019-12 OBSOLETE Refill (ENDOSO) Normal 12-31-2019 S[place] cort[place] [facility] FLORAJAZLYN ([id number]) 1965 [facility] Date Time Provider Department (98442) 12/31/19 KARO CALLAHANO During your visit today, [...] up thank you. Patient is seen in [place], I do not have the [place] schedulers pool. Mague Buck Pss 01/17/2020 10:07 [...] Hives Date Reviewed: 08/21/2019 Reviewed by: Ofe ([facility]) Yoel - Fully Assessed Reason for [...] on 2019-12-27 [facility] Telephone (FAMPWS) Normal 12-27-2019 [place] JAZLYN GARZON ([id number]) 1965 [facility] Date Time Provider Department (87208) 12/27/19 HUGO NAVA During your visit today, we recorded the following informati on about you: Hugo Nava MD 12/27/2019 9:56 AM Signed 1. Tell her happy birthday 2. Let her know her sleep test is inconclusive. They want us to do an inlab test. Will need preprocedure covid test if done at [facility] Shakir Andino LPN 12/27/2019 2:16 PM Signed TC to pt, left detailed mess age with provider instructions on secure identified voicemail. Schedulers please assist pt with scheduling inlab sleep stud y. [facility] 3:23 PM Signed Patient has test scheduled at [facility] Shakir Andino LPN 01/05/2020 3:42 PM Signed Order printed and faxed to [facility]. Shakir Andino LPN Allergies As [...] 3] Other Visit Diagnosis:Hypoxia [R09.02] Order(s):POLYSOMNOGRAM (PSG) [7508881] Order #: [id number] F UTURE PRE-PROCEDURE AND PRE-OPERATIVE COVID [SQPOCOVD] Order #: [id number] FUTURE Prescriptions as of 12/27/2019 Sig: SYNTHROID [...] on 01/05/20 No panel information on 2019-12-26 [employer] study) or an alternative 0 12-26-2019 [facility] (36894) hypopnea sensor (diagnostic study). The duration of [employer] baseline using nasal pressure 12-26-2019 [facility] (60168) (diagnostic study), PAP device flow (titration [employer] Hypopnea definition: The peak 12-26-2019 [facility] (13738) signal excursions drop by =30% of pre-event [employer] duration of the >90% drop in 12-26-2019 [facility] ([facility]) signal excursion is =10 seconds. [employer] (titration study) or an [facility] ([facility]) alternative apnea sensor (diagnostic study). The [employer] baseline using an oronasal 12-26-2019 [facility] ([facility]) thermal sensor (diagnostic study), PAP device flow [employer] Apnea definition: The peak 12-26-2019 [facility] ([facility]) signal excursions drop by >90% of pre-event [employer] Name: JAZLYN GARZON Date of 0 12-26-2019 [facility] ([facility]) Study: 12/14/2019 [facility]#: [id number] [employer] the AASM Manual for Scoring of 12-26-2019 [facility] ([facility]) Sleep and Associated Events version 2.5. [employer] accurate index of respiratory 12-26-2019 [facility] ([facility]) events. The ELIAS is a surrogate of the AHI per [employer] test. Since the home sleep 12-26-2019 [facility] ([facility]) apnea test does not measure sleep, the ELIAS is most [employer] index has been replaced by the 12-26-2019 [facility] ([facility]) respiratory event index for home sleep apnea [employer] events x 60 / TRT (total 0 12-26-2019 [facility] ([facility]) recording time in minutes). Note: the apnea hypopnea [employer] ELIAS definition: Respiratory 12-26-2019 [facility] ([facility]) event index (ELIAS), calculated as respiratory [employer] abdominal effort, and body 12-26-2019 [facility] ([facility]) position. [employer] pressure transducer, snoring 12-26-2019 [facility] ([facility]) via nasal pressure transducer, chest and [employer] rate, oxygen saturation, 0 12-26-2019 [facility] ([facility]) continuous airflow with thermistor and nasal [employer] a registered sleep [address] [place] [address] ([facility]) technologist. The monitored parameters included heart [employer] and was unattended. The [facility] ([facility]) patient was instructed on proper use of the device by [employer] Procedure: This study was 12-26-2019 [facility] ([facility]) performed using a Type III ambulatory PSG device [employer] Sleep procedure: PSG 12-25 [facility] ([facility]) unattended Type III, minimum of 4 parameters (76047) [employer] Medications: Synthroid [facility] ([facility]) [employer] Past medical history: ADHD, 12-26-2019 [facility] ([facility]) GERD, Hypothyroidism, SVT, Obesity [employer] mouth/sore throat. The patient 12-26-2019 [facility] ([facility]) endorses being a habitual side sleeper. [employer] gasping, snorting, multiple 12-26-2019 [facility] ([facility]) awakenings from sleep, and waking up with dry [employer] difficulty initiating sleep, 12-26-2019 [facility] ([facility]) daytime sleepiness, fatigue, waking up choking, [employer] Sleep history: The patient is 12-26-2019 [facility] ([facility]) a 53 year old female with a history of [employer] Referring Provider: HUGO 12-26-2019 [facility] ([facility]) ELIJAH Mailcode: [id number] [employer] time was 407 minutes. By 0 12-26-2019 [facility] ([facility]) convention, sleep is assumed for the whole [employer] Driver Age: 53 (: 1965) ESS: 12-26-2019 [facility] ([facility]) Neck Circ. (cm): N/A [employer] Driver 2. Recommend an in-laboratory 12-26-2019 [facility] ([facility]) polysomnogram if sleep apnea remains highly [employer] UVALDO MARIE (12/26/2019 12-26-2019 [facility] ([facility]) 2:40:02 PM) [employer] Report Digitally Signed By: 12-26-2019 [facility] ([facility]) [employer] 12-26-2019 [facility] ([facility]) [employer] [address] [facility] [address], 12-26-2019 [facility] ([facility]) [place] [address] [employer] Driver I attest that I have performed 12-26-2019 [place] [address]) epoch by epoch review of the entire raw data. [employer] Driver Uvaldo Marie MD 12-26-2019 [facility] ([facility]) [employer] INTERPRETING PHYSICIAN: [facility] ([facility]) [employer] Driver to hypoventilation or a [facility] ([facility]) cardiopulmonary cause. [employer] hypoxemia represents true 12-26-2019 [facility] ([facility]) hypoxemia or artifact, and whether hypoxemia is due [employer] Driver with end-tidal CO2 monitoring 12-26-2019 [facility] ([facility]) (EtCO2) may help to determine if the finding of [employer]der [employer] Driver this represents true hypoxemia 12-26-2019 [facility] ([facility]) or technical artifact. An in-lab sleep study [employer] Driver majority of the study [facility] ([facility]) demonstrating oximetry below 88%. It is uncertain if [employer] Driver 3. Hypoxemia was noted, even 12-26-2019 [facility] ([facility]) in the absence of respiratory events, with the [employer] Driver suspected. 12-26-2019 [facility] ([facility]) [employer] ; Fax: 0 12-26-2019 [facility] ([facility]) [employer] observed in the supine [facility] ([facility]) position. [employer] only be measured on an [facility] ([facility]) in-laboratory polysomnogram. The patient was not [employer] Driver apnea as HSAT does not measure 12-26-2019 [facility] ([facility]) certain types of respiratory events that can [employer] Driver 1. This study neither confirms 12-26-2019 [facility] ([facility]) nor refutes a diagnosis of obstructive sleep [employer]der [employer] IMPRESSION/RECOMMENDATIONS: 12-26-2019 [facility] ([facility]) [employer] Sleep Disorder, Unspecified 12-26-2019 [facility] ([facility]) [G47.9] [employer] Primary Snoring [R06.83] 0 12-26-2019 [facility] ([facility]) [employer] Sleep Related Hypoxia [G47.34] 12-26-2019 [facility] ([facility]) [employer] ICSD DIAGNOSIS: 12-26-2019 [facility] ([facility]) [employer] The average heart rate was 76 12-26-2019 [place] [address]) bpm with a range of 31 bpm to 112 bpm. [employer]der [employer] Driver ECG DATA: 12-26-2019 [facility] ([facility]) [employer] Total 407.0 min 3.7 2019 [facility] ([facility]) [employer] Off-Supine 407.0 min 3.7 0 12-26-2019 [facility] ([facility]) [employer] Supine 0.0 min -- 12-26-19 [facility] ([facility]) [employer] Time ELIAS/AHI 12-26-2019 [facility] ([facility]) [employer] recording time). 0 [facility] ([facility]) [employer] Driver equal to 4% oxygen 020 [facility] ([facility]) desaturation from pre-event baseline. Powder [employer] Driver minutes at oxygen saturation 12-26-2019 [facility] ([facility]) measured less than 90% (93.9% of recording time) [employer] Driver 86.0%, with a minimum oxygen 12-26-2019 [facility] ([facility]) saturation of 82.0%. The patient spent 382.1 Powder Truck Driver per hour of study time. The 12-26-2019 [facility] ([facility]) mean oxygen saturation during the study was Powder Truck Driver central) and 20 hypopneas. The 12-26-2019 [facility] ([facility]) respiratory event index (ELIAS) was 3.7 events Powder Truck Driver these events, the total number 12-26-2019 [facility] ([facility]) of apneas was 5 (2 obstructive, 0 mixed, and 3 [employer] Driver recording. Snoring was noted. 12-26-2019 [facility] ([facility]) There was a total of 25 respiratory events. Of Powder Truck Driver [facility] Sleep [facility] ([facility]) Disorders Center at [facility] [employer] Driver The study started at 00:04:00 12-26-2019 [facility] ([facility]) and ended at 06:50:48 and the total recording [employer]der [employer] Driver Home Sleep Apnea Test (HSAT) 12-26-2019 [facility] ([facility]) Study Report [employer]der [employer] Driver RESPIRATORY DATA: 12-26-19 [facility] ([facility]) [employer] Driver the =30% drop in signal [facility] ([facility]) excursion is =10 seconds. There is a greater than or Powder Truck Driver and 360.4 minutes at oxygen 12-26-2019 [facility] ([facility]) saturation measured at or less than 88% (88.6% of cnpn on 2019 [facility] Normal 2019 [facility] JAZLYN AGRZON ([id number]) 1965 [facility] Time Provider Department ([id number]) 12/25/19 HUGO NAVA During your visit today, [...] Hives Date Reviewed: 08/21/2019 Reviewed by: Ofe ([facility]) Yoel - Fully Assessed Reason for [...] 12/25/19 progress on 2019-11 PROGRESS HNO ID: [id number] Normal 12-18-2019 [facility] Author: Debra Jasso [facility] ([id number]) Service: ? Author Type: ? Type: Progress Notes Filed: 12/18/2019 6:39 PM Note Text: Sleep Study Check-In Documentation Date: December 18, 2019 Name: Jazlyn Garzon Comments: HST was returned in working order with all sleep q uestionnaires Debra Jasso [facility] progress on 2019-11 PROGRESS HNO ID: [id number] Normal 12-12-2019 [facility] Author: Carmen Jenkins [place] ([id number]) Service: ? Author Type: ? Type: Progress Notes Filed: 12/18/2019 6:39 PM Note Text: NOMAD #[id number] Date shipped out 12/11 [employer] MAIL OUT TRACKING NUMBER [id number] [employer] RETURN TRACKING NUMBER [id number] PROGRESS HNO ID: [id number] Normal 12-12-2019 [facility] Author: Dalton Valdez III [place] ([id number]) Service: ? Author Type: Physician Type: Progress [...] suspected with comorbid medical or sleep disorders: Hvbdiepq-lt-hxxioq pulmonary disease Sleep study to be performed: [...] PhD 10:30 AM, 12/12/2019 PROGRESS HNO ID: [id number] Normal 12-12-2019 [facility] Author: Carmen Dixon ([id number]) Service: ? Author Type: ? Type: Progress Notes Filed: 12/18/2019 6:39 PM Note Text: Spoke with Ben Michael. He stated patient is okay to have HSAT because she only needs it for diagnostic purposes for her physician to have on record. PROGRESS HNO ID: [id number] [place] 12-12-2019 [facility] Author: Carmen Dixon ([id number]) Service: ? Author Type: ? Type: Progress Notes Filed: 12/18/2019 6:39 PM Note Text: December 12, 2019 An order has been received for Home Sleep Apnea Test (HSAT) from brittany Rodriguez. [facility] Staff. Visit prep complete. Comments :No The sleep study is scheduled for 12/12. Insurance: Payor: [facility] MEDICAID / Plan: [facility] ICAID / Product Type: Medicaid / Payor/Plan Subscr Sex Relation Sub. Ins. ID Effective Gr oup Num 1. [place]* JAZLYN GARZON Antonieta 1965 Female Self [id number] 05/27/16 [facility] [address] Carmen Jenkins progress on 2019-11 PROGRESS HNO ID: [id number] [place] 12-11-2019 [facility] Author: Antonieta Esqueda (Gregorio) Marcial Dixon ([id number]) Service: ? Author Type: Physician Shield Installer Type: Progress Notes Filed: 12/11/2019 9:12 AM [...] elevated from las t Seeing Treva in [place]: satisfied with care: thinks low te stosterone [...] Abs Lymph 1.00 - 4.00 k/uL 3.59 [place]% % 8.5 Abs [place] <0.87 k/uL 1.01 (H) Eosin% % 2.4 [...] stroke - Colon Cancer Father age 64 [place] - Diabetes Father Type 2 - Hypertension Father - Coronary Artery Disease Father Hx of [place] - Thyroid Sister hx of parathyroid disease/ [...] * *Final Report* * * Normal 12-04-2019 [facility] TRANSVAG DATE OF EXAM: Dec 04 2019 7:40AM [place] ([id number]) WRU 1060 - US FEMALE PELVIS TRANSVAG [...] . Six-month follow-up pelvic ultrasound is recommended. Disassembler: JEANNA Transcribe Date/Time: Dec 04 2019 7:53A Dictated by : HAZEL TSE MD This examination was interpreted and the report reviewed and electronically signed by: HAZEL TSE MD on Dec 04 2019 7:55AM EST [id number] tsh on 2019-12-04 TSH Qn 3.940 0.270-4.200 uU/mL Normal 12-04-2019 [facility] ([id number]) Comment: Performed By: #### DHEAS, TD, PROG, E2 #### [facility] Labor[facility]ie s [address] [place], [place] [address] #### EST #### [facility] [place] [address] [place] [phone] testosterone, tot/fr on 2019-12-04 Testosterone [Mass/Vol] 20 8-60 ng/dL Normal 2019 [facility] (13289) Comment: Result Comment: (NOTE) ADDITIONA L INFORMATION Testing performed by Liquid Chromatography-Tandem Mass Spectrometry (LC-MS/MS). This test was developed and its performance characteristics determined by [facility] in a manner consistent with CLIA requirements. This test has not been cleared or approved by the U.S. Food and Drug Admin istration. Performed By: #### TFTEST ## ## [facility] [address] [place] [address] Testosterone, Free 0.22 0.06-0.92 ng/dL Normal 12-04-2019 [facility] (26156) Comment: Result Comment: (NOTE) ADDITIONA L INFORMATION Testing performed by [facility]. This test was developed and its performance characteristics determined by [facility] in a manner consistent with CLIA requirements. This test has not been cleared or approved by the U.S. Food and Drug Admin istration. Performed By: #### TFTEST ## ## [facility] [address] [place] [address] progress on 2019-11 PROGRESS HNO ID: [id number] Normal 12-04-2019 [facility] Author: Mireya Leon) Renae [place] ([id number]) Service: ? Author Type: Watch Adjuster Type: Progress Notes Filed: 12/04/2019 7:41 AM [...] progesterone on Progesterone 0.2 ng/mL Normal 12-04-2019 [facility] (35035) Comment: Result Comment: Menstrual Cy soy Progesterone Reference Ranges: Follicular:<1.0 ng/mL Ovulation:<12.1 ng/mL Luteal:1.8 to 23.9 ng/mL Progesterone Refer ence Ranges vary by gestational period: First Trimester:11.0 to 44.3 ng/mL Second Trimester:25.4 to >60 .0 ng/mL Third Trimester:58.7 to >60. 0 ng/mL Post menopausal Progesterone :<0.5 ng/mL Reference: 1. Progesterone ( Progesterone III) [package insert V 1.0 Guinean]. [employer], [place], [place]. January 2015. Performed By: #### DHEAS, TD, PROG, E2 #### [facility] Laboratorie [place] [phone] #### EST #### [facility] [place] [address] [place], [place] [id number] [phone] lipid panel, basic on 2019-12-04 Cholesterol [Mass/Vol] 125 <200 mg/dL Normal 020 [facility] (79635) Comment: Result Comment: <200 mg/dL, Desirable 200-239 mg/dL, Borderline hi gh >239 mg/dL, High Performed By: #### DHEAS, TD, PROG, E2 #### [facility] [place] [phone] #### EST #### [employer] [address] [place] [address] [phone] Cholesterol in HDL [Mass/Vol] 37 >39 mg/dL Low 12-04-2019 [facility] (14170) Comment: Result Comment: 40-59 mg/dL, Acceptable >59 mg/dL, High: Negative ri sk factor for coronary heart disease <40 mg/dL, Low: Positive ris k factor for coronary heart disease Performed By: #### DHEAS, TD, PROG, E2 #### [place] [phone] #### EST #### [facility] [place] [address] [place], [place] [id number] [phone] Cholesterol in LDL 68 <100 mg/dL Normal 12-04-2019 [facility] [Mass/Vol] [place] (88710) Comment: Result Comment: <100 mg/dL, Optimal 100-129 mg/dL, Near optimal/ above optimal 130-159 mg/dL, Borderline hi gh 160-189 mg/dL, High >189 mg/dL, Very high Secondary prevention optimal LDL Cholesterol levels are recommended to be < 70 mg/dL Performed By: #### DHEAS, TD, PROG, E2 #### [facility] Laboratorie s [address] [place] [address] #### EST #### [facility] [address] [place] [address] [phone] Fasting Time 12 hrs Normal 12-04-2019 [facility] (44790) Comment: Performed By: #### DHEAS, TD, PROG, E2 #### [facility] [address] [place] [phone] #### EST #### [facility] [address] [place] [address] [phone] LDL:HDL Ratio 1.84 <2.54 Normal 12-04-2019 [facility] (72123) Comment: Result Comment: Reference: 1. National Cholesterol Educ ation Program ATP III Guideline At-A-Glance Quick Desk Reference: National Heart, Lung, and Blood Warne. National Institutes of Health. 2001: NIH Publication No. 01-3305. 2. An International Atherosc lerosis Society position paper: global recommendations for the management of dyslipidemia: executive summary, Atherosclerosis. 2014: 232(2):410-413. Performed By: #### DHEAS, TD, PROG, E2 #### [facility] [address] [place] [address] #### EST #### [facility] [address] [place] [address] [phone] Non HDL Cholesterol 88 <130 mg/dL Normal 12-04-2019 [facility] (59119) Comment: Result Comment: <130 mg/dL, Optimal 130-159 mg/dL, Near optimal/ above optimal 160-189 mg/dL, Borderline hi gh 190-219 mg/dL, High >219 mg/dL, Very high Secondary prevention optimal non HDL Cholesterol levels are recommended to be < 100 mg/dL Performed By: #### DHEAS, TD, PROG, E2 #### [place] [address] #### EST #### [facility] [address] [place] [address] [phone] TC:HDL Ratio 3.38 <5.10 Normal 12-04-2019 [facility] (03111) Comment: Performed By: #### DHEAS, TD, PROG, E2 #### [place] [phone] #### EST #### [place] [address] [phone] Triglyceride [Mass/Vol] 102 <150 mg/dL Normal 2019 [facility] (38985) Comment: Result Comment: <150 mg/dL, Normal 150-199 mg/dL, Borderline hi gh 200-499 mg/dL, High >499 mg/dL, Very high Performed By: #### DHEAS, TD, PROG, E2 #### [place] [address] #### EST #### [facility] [address] [place] [address] [phone] VLDL Cholesterol 20 <30 mg/dL Normal 12-04-2019 [facility] (38567) Comment: Performed By: #### DHEAS, TD, PROG, E2 #### [place] [address] #### EST #### [facility] [address] [place], [place] [id number] [phone] hemoglobin a1c on HbA1c (Bld) [Mass fraction] 126 mg/dL Normal [facility] (58601) Comment: Result Comment: eAG: (Estima geoff average glucose) is a calculated value from HgbA1c and is medical sales representative of the average blood glucose level in the last 2-3 month period. Performed By: #### DHEAS, TD, PROG, E2 #### [facility] [address] [place], [place] [address] #### EST #### [facility] [address] [place] [address] [phone] HbA1c (Bld) [Mass fraction] 6.0 4.3-5.6 % High [facility] (33991) Comment: Result Comment: [place] Antonette betes Association guidelines indicate that patients with HgbA1c in the range 5.7-6.4% are at increased risk for development of diabetes, and intervention by lifestyle modification may be beneficial. HgbA1c greater o r equal to 6.5% is considered diagnostic of diabetes. Performed By: #### DHEAS, TD, PROG, E2 #### [facility] s [address] [place] [address] #### EST #### [facility] [address] [place] [address] [phone] free t4 on Free T4 [Mass/Vol] 1.2 0.9-1.7 ng/dL Normal 12-04-2019 [facility] (39716) Comment: Performed By: #### FREET3, F T4 ####[facility] [address] [place], [place] [phone] free t3 on Free T3 [Mass/Vol] 2.8 2.3-4.1 pg/mL Normal 12-04-2019 [facility] (84503) Comment: Performed By: #### FREET3, F T4 #### [facility] [address] [place] [address] estrone on Estrone 18.4 pg/mL Normal 12-04-2019 [facility] (54904) Comment: Result Comment: (NOTE) Females: Pre-menopausal: Early follic ular <150.0 pg/mL Pre-menopausal: Late follicu lar 100.0-250.0 pg/mL Pre-menopausal: Luteal <200. 0 pg/mL Post-menopausal 3.0-32.0 pg/ mL REFERENCE INTERVAL: Estrone by TMS Access complete set of age- and/or gender-specific reference intervals for this test in t [facility] Test Directory ([employer]). Test developed and character istics determined by [email or web address]. See Compliance Statement B: [employer]/CS Performed By: [facility] [address] [place] [address] Window Dresser: Wilner Rosa MD, MS Performed By: #### DHEAS, TD, PROG, E2 #### [facility] [address] [place] [address] #### EST #### [employer] [address] [place] [address] [phone] estradiol-17b on 13-12-09 Estradiol-17B <25 Normal 12-04-2019 [facility] (21993) Comment: Result Comment: This test is not [...] E2 (Estradiol III) [package insert V 3.0 Guinean]. [employer], [place], [place], September 2015. Performed By: #### DHEAS, TD, PROG, E2 #### [facility] [address] [place], [place] [address] #### EST #### [facility] [address] [place] [address] [phone] comp metabolic panel on 2019-12-04 Albumin [Mass/Vol] 4.0 3.9-4.9 g/dL Normal 12-04-2019 [facility] (35172) Comment: Performed By: #### DHEAS, TD, PROG, E2 #### [place] [phone] #### EST #### [facility] [address] [place] [address] [phone] ALP [Catalytic activity/Vol] 82 34-123 U/L Normal 0 12-04-2019 [facility] (41504) Comment: Performed By: #### DHEAS, TD, PROG, E2 #### [place] [phone] #### EST #### [facility] [address] [place], [place] [id number] [phone] ALT [Catalytic activity/Vol] 24 7-38 U/L Normal 0 12-04-2019 [facility] (07929) Comment: Performed By: #### DHEAS, TD, PROG, E2 #### [place] [phone] #### EST #### [facility] [address] [place], [place] [id number] [phone] Anion gap [Moles/Vol] 9 9-18 mmol/L Normal 12-04-19 [facility] (41919) Comment: Performed By: #### DHEAS, TD, PROG, E2 #### [place] [address] #### EST #### [facility] [address] [place], [place] [id number] [phone] AST [Catalytic activity/Vol] 16 13-35 U/L Normal 0 12-04-2019 [facility] (17732) Comment: Performed By: #### DHEAS, TD, PROG, E2 #### [facility] [address] [place] [phone] #### EST #### [facility] [address] [place] [address] [phone] Bilirubin [Mass/Vol] <0.2 0.2-1.3 mg/dL Low 0 [facility] (73306) Comment: Performed By: #### DHEAS, TD, PROG, E2 #### [facility] [place] [phone] #### EST #### [facility] [address] [place] [address] [phone] Calcium [Mass/Vol] 9.4 8.5-10.2 mg/dL Normal 12-04-2019 [facility] (86170) Comment: Performed By: #### DHEAS, TD, PROG, E2 #### [place] [phone] #### EST #### [facility] [address] [place] [address] [phone] Chloride [Moles/Vol] 103 97-105 mmol/L Normal 0 [facility] (01040) Comment: Performed By: #### DHEAS, TD, PROG, E2 #### [place] [phone] #### EST #### [facility] [address] [place] [address] [phone] CO2 [Moles/Vol] 26 22-30 mmol/L Normal 12-04-2019 [facility] (91452) Comment: Performed By: #### DHEAS, TD, PROG, E2 #### [place] [phone] #### EST #### [facility] [address] [place] [address] [phone] Creatinine [Mass/Vol] 0.79 0.58-0.96 mg/dL Normal 12-04-19 20 [facility] (13212) Comment: Performed By: #### DHEAS, TD, PROG, E2 #### [facility] [address] [place] [address] #### EST #### [facility] [address] [place] [address] [phone] eGFR- Amer. >60 Normal 12-04-2019 [facility] (14520) Comment: Performed By: #### DHEAS, TD, PROG, E2 #### [facility] [address] [place] [address] #### EST #### [facility] [address] [place] [address] [phone] GFR/1.73 sq M predicted >60 mL/min/{1.73_m2} Normal 12-04-2019 [facility] among non-blacks [facility] (13699) (S/P/Bld) [Vol rate/Area] Comment: Result Comment: eGFR [...] DHEAS, TD, PROG, E2 #### [facility] [address] [place] [phone] #### EST #### [facility] [address] [place] [address] [phone] Glucose [Mass/Vol] 141 74-99 mg/dL High 12-04-2019 [facility] (00424) Comment: Result Comment: The [place] Diabetes Association (ADA) provides guidance for cutoff [...] for diagnosis of diabetes. Reference: Standards of [facility] Care in Diabetes 2016, [place] Diabetes Association. Diabetes Care. 2016.39(Suppl 1). Performed By: #### DHEAS, TD, PROG, E2 #### [facility] [place] [phone] #### EST #### [facility] [address] [place] [address] [phone] Potassium [Moles/Vol] 3.7 3.7-5.1 mmol/L Normal 12-04-19 [facility] (61986) Comment: Performed By: #### DHEAS, TD, PROG, E2 #### [facility] [address] [place] [phone] #### EST #### [facility] [address] [place] [address] [phone] Protein [Mass/Vol] 6.6 6.3-8.0 g/dL Normal 12-04-2019 [facility] (16274) Comment: Performed By: #### DHEAS, TD, PROG, E2 #### [facility] [address] [place] [phone] #### EST #### [facility] [address] [place] [address] [phone] Sodium [Moles/Vol] 138 136-144 mmol/L Normal 12-04-2019 [facility] (02573) Comment: Performed By: #### DHEAS, TD, PROG, E2 #### [facility] [place] [phone] #### EST #### [facility] [address] [place] [address] [phone] Urea nitrogen [Mass/Vol] 9 7-21 mg/dL Normal 12-03 [facility] (66256) Comment: Performed By: #### DHEAS, TD, PROG, E2 #### [place] [phone] #### EST #### [facility] [address] [place] [address] [phone] cbc and differential on 2019-12-04 Abs Baso 0.06 <0.11 k/uL Normal 12-04-2019 [facility] (91571) Comment: Performed By: #### DHEAS, TD, PROG, E2 #### [place] [phone] #### EST #### [facility] [address] [place] [address] [phone] Abs [place] 1.01 <0.87 k/uL High 12-04-2019 [facility] (82299) Comment: Performed By: #### DHEAS, TD, PROG, E2 #### [place] [phone] #### EST #### [facility] [address] [place] [address] [phone] Abs Neut 6.96 1.45-7.50 k/uL Normal 12-04-2019 [facility] (87004) Comment: Performed By: #### DHEAS, TD, PROG, E2 #### [place] [phone] #### EST #### [facility] [address] [place] [address] [phone] Absolute nRBC <0.01 <0.01 Normal 12-04-2019 [facility] (76684) Comment: Performed By: #### DHEAS, TD, PROG, E2 #### [facility] [address] [place] [phone] #### EST #### [facility] [address] [place] [address] [phone] Basophils/100 WBC (Bld) 0.5 % Normal 2019 [facility] (91938) Comment: Performed By: #### DHEAS, TD, PROG, E2 #### [facility] [address] [place] [phone] #### EST #### [facility] [address] [place] [address] [phone] DTYPE Auto Diff Normal 12-04-2019 [facility] (08840) Comment: Performed By: #### DHEAS, TD, PROG, E2 #### [facility] [address] [place] [phone] #### EST #### [facility] [address] [place] [address] [phone] Eosinophils (Bld) [#/Vol] 0.29 <0.46 k/uL Normal 11-24 [facility] (85027) Comment: Performed By: #### DHEAS, TD, PROG, E2 #### [facility] [address] [place] [phone] #### EST #### [facility] [address] [place] [address] [phone] Eosinophils/100 WBC (Bld) 2.4 % Normal 11-24 [facility] (36571) Comment: Performed By: #### DHEAS, TD, PROG, E2 #### [facility] [address] [place] [phone] #### EST #### [facility] [address] [place] [address] [phone] Erythrocyte distribution 12.4 11.5-15.0 % Normal 12-03 [facility] width (RBC) [Ratio] [place] ([id number]) Comment: Performed By: #### DHEAS, TD, PROG, E2 #### [facility] Laboratorie s [address] [place] [phone] #### EST #### [facility] [address] [place], [place] [id number] [phone] Hematocrit (Bld) [Volume 46.8 36.0-46.0 % High 12-03 [facility] fraction] [place] (59876) Comment: Performed By: #### DHEAS, TD, PROG, E2 #### [facility] [address] [place] [phone] #### EST #### [facility] [address] [place] [address] [phone] Hemoglobin (Bld) 15.4 11.5-15.5 g/dL Normal 12-04-2019 [facility] [Mass/Vol] [place] (98482) Comment: Performed By: #### DHEAS, TD, PROG, E2 #### [facility] Labor[facility] s [address] [place] [phone] #### EST #### [facility] [address] [place] [address] [phone] Lymphocytes (Bld) [#/Vol] 3.59 1.00-4.00 k/uL Normal 11-24 [facility] (11238) Comment: Performed By: #### DHEAS, TD, PROG, E2 #### [facility] [address] [place] [phone] #### EST #### [facility] [address] [place] [address] [phone] Lymphocytes/100 WBC (Bld) 30.1 % Normal 11-24 [facility] (41039) Comment: Performed By: #### DHEAS, TD, PROG, E2 #### [place] [phone] #### EST #### [facility] [address] [place] [address] [phone] MCH (RBC) [Entitic mass] 31.6 26.0-34.0 pG Normal 12-03 [facility] (15452) Comment: Performed By: #### DHEAS, TD, PROG, E2 #### [facility] [place] [phone] #### EST #### [facility] [address] [place] [phone] MCHC (RBC) [Mass/Vol] 32.9 30.5-36.0 g/dL Normal 12-04-19 [facility] (35275) Comment: Performed By: #### DHEAS, TD, PROG, E2 #### [place] [phone] #### EST #### [facility] [address] [place] [address] [phone] MCV (RBC) [Entitic vol] 96.1 80.0-100.0 fL Normal 12-03 [facility] (02850) Comment: Performed By: #### DHEAS, TD, PROG, E2 #### [place] [phone] #### EST #### [facility] [address] [place] [address] [phone] Monocytes/100 WBC (Bld) 8.5 % Normal 2019 [facility] (43150) Comment: Performed By: #### DHEAS, TD, PROG, E2 #### [facility] Laborator s [address] [place] [phone] #### EST #### [facility] [address] [place] [address] [phone] Neutrophils/100 WBC (Bld) 58.5 % Normal 11-24-2019 [facility] (39206) Comment: Performed By: #### DHEAS, TD, PROG, E2 #### [facility] [place] [phone] #### EST #### [facility] [address] [place] [address] [phone] NRBCs 0.0 0 /100 WBC Normal 12-04-2019 [facility] (07186) Comment: Performed By: #### DHEAS, TD, PROG, E2 #### [place] [phone] #### EST #### [facility] [address] [place] [address] [phone] Platelet mean volume 9.7 9.0-12.7 fL Normal 0 [facility] (Bld) [Entitic vol] (78245) Comment: Performed By: #### DHEAS, TD, PROG, E2 #### [place] [address]370 [place] [phone] #### EST #### [facility] [address] [place] [address] [phone] Platelets (Bld) [#/Vol] 302 150-400 k/uL Normal 2019 [facility] (41068) Comment: Performed By: #### DHEAS, TD, PROG, E2 #### [place] [phone] #### EST #### [facility] [address] [place] [address] [phone] RBC (Bld) [#/Vol] 4.87 3.90-5.20 m/uL Normal 12-04-2019 [facility] (37689) Comment: Performed By: #### DHEAS, TD, PROG, E2 #### [facility] s [address] [place], [place] [address] #### EST #### [facility] [address] [place] [address] [phone] WBC (Bld) [#/Vol] 11.91 3.70-11.00 k/uL High 12-04-2019 [facility] (33311) Comment: Performed By: #### DHEAS, TD, PROG, E2 #### [facility] Labor[facility] s [address] [place], [place] [address] #### EST #### [facility] [address] [place] [address] [phone] progress on 2019-10 PROGRESS HNO ID: [id number] Normal 10-30-2019 [facility] Author: Hugo Nava [place] ([id number]) Service: ? Author Type: Physician Type: Progress [...] are being torn off of her bones. Clinton week and exhausted Had a sour taste [...] stroke - Colon Cancer Father age 64 [place] - Diabetes Father Type 2 - Hypertension Father - Coronary Artery Disease Father Hx of MA - Thyroid Sister hx of parathyroid disease/ [...] diagnosis) -doing great. Continue to follow with supervisor melt house. 2. Thickened endometrium - ICD9: 793.5, ICD10: [...] more than 50% of the t otal vuhn-yx-fzcg time of the visit in counseling / coordination of care. [facility] on 2019-10-30 CNPN Telephone (FAMPWS) Normal 10-30-2019 [facility] JAZLYN GARZON ([id number]) 1965 [facility] Time Provider Department (79479) 10/30/19 HUGO NAVA During your visit today, we recorded the following informati on about you: Jazlyn Garcia Ma 10/30/2019 3:29 PM Signed Hugo Gutiérrez Wstr [facility] [place] Pool ? Set up us in one [...] Hives Date Reviewed: 08/21/2019 Reviewed by: Ofe ([facility]) Yoel - Fully Assessed Reason for [...] TSH Qn 2.760 0.270-4.200 uU/mL Normal 10-24-2019 [facility] (36426) Comment: Performed By: #### DHEAS, TD, PROG, E2 #### [facility] Laboratorie s [address] [place] [address] #### EST #### [employer] [facility] [address] [place] [address] 107[address] [phone] cnpn on 2019-10-24 CNPN Telephone (FAMPWS) Normal 10-24-2019 [place] JAZLYN Jones ([id number]) 1965 [facility] Date Time Provider Department (59632) 10/24/19 [facility] your visit today, we recorded the [...] Hives Date Reviewed: 08/21/2019 [facility]ed [facility]: [facility] Yoel - Fully Assessed Reason for Visit: Lab Orders [1688] Primary Visit Diagnosis:Hypothyroidism, acquired [E03.9] Order(s):TSH BLD [SQTSH] Order #: [id number] FUTURE Prescriptions as of 10/24/2019 Sig: ESCITALOPRAM [...] 10/24/19 progress on 2019-09 PROGRESS HNO ID: [id number] Normal 09-29-2019 [facility] Author: Hugo Nava [place] ([id number]) Service: ? Author Type: Physician Type: Progress [...] are being torn off of her bones. [place] week and exhausted Had a sour taste [...] stroke - Colon Cancer Father age 64 [place] - Diabetes Father Type 2 - Hypertension Father - Coronary Artery Disease Father Hx of [place] - Thyroid Sister hx of parathyroid disease/ [...] her to avoid using and follow with supervisor melt house. Fernandoy man. Follow up in one month or prn. Hugo Nava MD us female pelvis transvag on 2019-09-28 US FEMALE PELVIS * * *Final Report* * * Normal 09-28-2019 [facility] TRANSVAG DATE OF EXAM: Sep 28 2019 7:55AM [place] ([id number]) WRU 1060 - US FEMALE PELVIS TRANSVAG [...] of free fluid or pathologic adnexal mass Disassembler: PSCB Transcribe Date/Time: Sep 28 2019 9:30A Dictated by : GLADIS BREEN MD This examination was interpreted and the report reviewed and electronically signed by: GLADIS BREEN MD on Sep 28 2019 9:34AM EST [id number] progress on 2019-09 PROGRESS HNO ID: [id number] Normal 09-28-2019 [facility] Author: Michelle Bo (Tech) [place] ([id number]) Service: ? Author Type: Fur Cutter Type: Progress Notes Filed: 09/28/2019 7:46 AM [...] on 2019-09-28 DHIRAJN Telephone (OBGYWM) Normal 09-28-2019 [place] JAZLYN GARZON ([id number]) 1965 [facility] Time Provider Department (27670) 09/28/19 OFE GARCIA) OBGYWM During your visit [...] Hives Date Reviewed: 08/21/2019 Reviewed by: Ofe ([facility]) Yoel - Fully Assessed Reason for Visit: Results [95] Primary Visit Diagnosis:Endometrial thickening on ultrasound [R93.89] Order(s):PELVIC US [facility] [5388356] Order #: [id number]: 1 Prescriptions as of 09/28/2019 Sig: ESCITALOPRAM [...] 09/28/19 progress on 2019-08 PROGRESS HNO ID: [id number] Normal 09-15-2019 [facility] Author: Hugo Nava [place] ([id number]) Service: ? Author Type: Physician Type: Progress [...] are being torn off of her bones. [place] week and exhausted Had a sour taste [...] had bleeding. Has declined endometrial biopsy but supervisor melt house is following her ble eding. Has seen multiple providers including cardio, endo, gi, surg alberto, supervisor melt house, neurology, rheumatology has had extensive work up [...] stroke - Colon Cancer Father age 64 [place] - Diabetes Father Type 2 - Hypertension Father - Coronary Artery Disease Father Hx of MA - Thyroid Sister hx of parathyroid disease/ [...] of hormones. Encouraged to follow up with supervisor melt house. 5. Anxiety - ICD9: 300.00, ICD10: F41.9 - Discussed risks and benefits of new medication with the raymond vale. Advised them to call if any side effects or questions. - follow up in two weeks. - ESCITALOPRAM 10 MG TABLET 6. Hormone disturbance - ICD9: 259.9, ICD10: E34.9 - defer to supervisor melt house/enco Hugo Nava MD RTO in two weeks. and prn. I spent 30 minutes in the visit, with more than 50% of the t otal iosv-fz-jjpa time of the visit in counseling / coordination of care. period and volume o n 2019-09-11 Period 24 hr Normal 09-11-2019 [facility] (26030) Comment: Performed By: #### TFTEST ## ## [facility] [employer] [address] [place] [address] Volume 3200 mL Normal 09-11-2019 [facility] (89034) Comment: Performed By: #### TFTEST ## ## [facility] [employer] [address] [place] [address] hiaa, urine, 24 hour on 2019-09-11 HIAA, Urine, 24 Hour 3.8 0.0-8.0 mg/24hrs Normal 0 [facility] (63732) Comment: Result Comment: This test wa s developed and its performance characteristics determined by [facility]'s [facility] ( [facility]). It has not been cleared or a pproved by the FDA. [facility] is regulated under CLIA as qualified to perform high complexity testing. This test is used for clinic al purposes. It should not be regarded as investigational or for research. Performed By: #### TFTEST ## ## [facility] [address] [place] [address] vitamin b6 plasma o n 2019-09-06 Vitamin B6 Plasma 22.0 20.0-125.0 nmol/L Normal 09-06-2019 [facility] (38961) Comment: Result Comment: (NOTE) INTERPRETIVE INFORMATION: Vi tamin B6 (Pyridoxal 5-Phosphate) Pyridoxal 5'-phosphate measu red in a specimen collected following an 8-hour or overnight fast accurately indicates vitamin B6 nutritional status. Non-fast ing specimen concentration reflects recent vitamin intake. Test developed and character istics determined by [email or web address]. See Compliance Statement B: [facility] [employer] [facility] Performed by [facility] , [address] [place] [address] 8410 www.[email or web address], Wilner Saenz do, MD, Lab. Director Performed By: #### FERR, SER FOL, IRON, PROG, B12, E2 ####[facility] [address] [place], [place] [phone]#### EST, VITB6 ####[facility] [address] [place], [place] [phone] vitamin b12 on 2019 Cobalamin (Vitamin B12) 798 576-8230 pg/mL Normal 2019 [facility] [Mass/Vol] [place] (44151) Comment: Performed By: #### FERR, SER FOL, IRON, PROG, B12, E2 ####[facility] [address] [place], [place] [phone]#### EST, VITB6 ####[facility] [address] [place], [place] [phone] testosterone, tot/fr on 2019-09-06 Testosterone [Mass/Vol] 23 8-60 ng/dL Normal 2019 [facility] (25275) Comment: Result Comment: (NOTE) ADDITIONA L INFORMATION Testing performed by Liquid Chromatography-Tandem Mass Spectrometry (LC-MS/MS). This test was developed and its performance characteristics determined by [facility] in a manner consistent with CLIA requirements. This test has not been cleared or approved by the U.S. Food and Drug Admin istration. Performed By: #### TFTEST ## ## [facility] [address] [place], [place] [id number] Testosterone, Free 0.25 0.06-0.92 ng/dL Normal 09-06-2019 [facility] (38394) Comment: Result Comment: (NOTE) ADDITIONA L INFORMATION Testing performed by [facility]. This test was developed and its performance characteristics determined by [facility] in a manner consistent with CLIA requirements. This test has not been cleared or approved by the U.S. Food and Drug Admin istration. Performed By: #### TFTEST ## ## [facility] [address] [place] [address] progesterone on 202 Progesterone 0.4 ng/mL Normal 09-06-2019 [facility] (06799) Comment: Result Comment: Menstrual Cy soy Progesterone Reference Ranges: Follicular:<1.0 ng/mL Ovulation:<12.1 ng/mL Luteal:1.8 to 23.9 ng/mL Progesterone Refer ence Ranges vary by gestational period: First Trimester:11.0 to 44.3 ng/mL Second Trimester:25.4 to >60 .0 ng/mL Third Trimester:58.7 to >60. 0 ng/mL Post menopausal Progesterone :<0.5 ng/mL Reference: 1. Progesterone ( Progesterone III) [package insert V 1.0 Guinean]. [facility], [place], [place]. January 2015. Performed By: #### FERR, SER FOL, IRON, PROG, B12, E2 ####[facility] [address] [place], [place] [phone]#### EST, VITB6 ####[facility] [address] [place], [place] [phone] iron and tibc on 12-09-12 Iron [Mass/Vol] 126 41-186 ug/dL Normal 09-06-2019 [facility] (87324) Comment: Performed By: #### FERR, SER FOL, IRON, PROG, B12, E2 ####[place] [address] [place], [place] [phone]#### EST, VITB6 ####[facility] [address] [place], [place] [phone] TIBC 402 232-386 ug/dL High 09-06-2019 [facility] (29730) Comment: Performed By: #### FERR, SER FOL, IRON, PROG, B12, E2 ####[place] [address] [place], [place] [phone]#### EST, VITB6 ####[facility] [address] [place], [place] [phone] Transferrin Saturatn 31 15-57 % Normal 0 [facility] (43850) Comment: Performed By: #### FERR, SER FOL, IRON, PROG, B12, E2 ####[place] [address] [place], [place] [phone]#### EST, VITB6 ####[facility] [address] [place], [place] [phone] folate, serum on 12-09-12 Folate [Mass/Vol] 10.6 >4.7 ng/mL Normal 09-06-2019 [facility] [place] [facility] (30617) Comment: Performed By: #### FERR, SER FOL, IRON, PROG, B12, E2 ####[place] [address] [place], [place] [phone]#### EST, VITB6 ####[facility] [address] [place], [place] [phone] ferritin on 2019-08 Ferritin [Mass/Vol] 142.0 14.7-205.1 ng/mL Normal 0 [facility] (58751) Comment: Performed By: #### FERR, SER FOL, IRON, PROG, B12, E2 ####[facility] [address] [place], [place] [phone]#### EST, VITB6 ####[facility] [address] [place], [place] [phone] estrone on Estrone 24.8 pg/mL Normal 09-06-2019 [facility] (42585) Comment: Result Comment: (NOTE) Females: Pre-menopausal: Early follic ular <150.0 pg/mL Pre-menopausal: Late follicu lar 100.0-250.0 pg/mL Pre-menopausal: Luteal <200. 0 pg/mL Post-menopausal 3.0-32.0 pg/ mL REFERENCE INTERVAL: Estrone by [facility] Access complete set of age- and/or gender-specific reference intervals for this test in [facility] ([employer]). Test developed and character istics determined by [employer]. See Compliance Statement B: [facility] [employer] [facility] Performed by [facility] , [address] [place], [place] 84[address] www.[email or web address], Wilner Saenz do, MD, Lab. Director Performed By: #### FERR, SER FOL, IRON, PROG, B12, E2 ####[facility] [address] [place], [place] [phone]#### EST, VITB6 ####[facility] [address] [place], [place] [phone] estradiol-17b on 12-09-12 Estradiol-17B <25 Normal 09-06-2019 [facility] (08504) Comment: Result Comment: This test is not [...] E2 (Estradiol III) [package insert V 3.0 Guinean]. [facility], [place], [place], September 2015. Performed By: #### FERR, SER FOL, IRON, PROG, B12, E2 ####[facility] [address] [place], [place] [phone]#### EST, VITB6 ####[facility] [address] [place], [place] [phone] progress on 2019-08 PROGRESS HNO ID: [id number] Normal 09-01-2019 [place] Author: Hugo Nava [facility] Service: ? [place] Author Type: Physician ([id number]) Type: Progress Notes Filed: 09/01/2019 12:28 PM [...] the office setting and agrees. Used the [employer] platform. Seen at [facility] ER on 08/28. Date of [...] ST c hanges. Troponin is negative. 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 LFTs are normal. Chem-7 shows [...] days for another exam. Return to the [facility] department for any worsening symptoms. Disposition: To home in improved and stable condition. Impression: 1. Peripheral edema. 2. Sinus tachycardia. This note was generated with [employer] dictation software. It m ay contain incorrect [...] unexpected problems, contact your Primary Care Provider. [facility] Doctors Registry ([phone]) or report to the closest Emergency Room. Call 911 if necessary. 08/29/19 6052 Date Willian Duff MD Cosigner Signature (If [...] actually h ad amenorrhea due to PCOS. 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 She h [...] for carcinoid. Reinforced need to follow with supervisor melt house and endo and to hold on hormone [...] stroke - Colon Cancer Father age 64 MA - Diabetes Father Type 2 - Hypertension Father - Coronary Artery Disease Father Hx of MA - Thyroid Sister hx of parathyroid disease/ [...] Reinforced need to follow with endo and supervisor melt house and follow their recommendations. Suggested we could [...] MD progress on 2019-07 PROGRESS HNO ID: [id number] Normal 08-21-2019 [place] Author: Ofe Randhawa) [facility] Service: ? [place] Author Type: Nurse Practitioner ([id number]) Type: Progress Notes Filed: 08/21/2019 9:45 AM [...] stroke - Colon Cancer Father age 64 MA - Diabetes Father Type 2 - Hypertension Father - Coronary Artery Disease Father Hx of MA - Thyroid Sister hx of parathyroid disease/ [...] on 2019-08-21 MELINDA Telephone (OBGYWM) Normal 08-21-2019 [place] JAZLYN Jones ([id number]) 1965 F [place] Date Time Provider Department (08182) 08/21/19 OFE GARCIA (DHIRAJ) OBGYWM During your [...] Hives Date Reviewed: 08/21/2019 Reviewed by: Ofe ([facility]) Yoel - Fully Assessed Reason for [...] on 08/21/19 DHIRAJN Telephone (OBGYWM) Normal 08-21-2019 [place] JAZLYN Jones ([id number]) 1965 F [place] Date Time Provider Department (43528) 08/21/19 OFE GARCIA ([facility]) OBGYWM During your visit today, we recorded the following informati on about you: Ofe Garcia APRN.FURNACE COMBINATION ANALYST 08/21/2019 9:46 AM Signed Please call pt to schedule pelvic US in 2 months. Thanks, Re anand Garcia APRN.DHIRAJ [facility] 08/23/2019 1:24 PM Signed Completed. Allergies As [...] Hives Date Reviewed: 08/21/2019 Reviewed by: Ofe ChaidezHigh School Learning Support Teacher) Yoel - Fully Assessed Reason for Visit: [...] Normal 08-20-2019 [facility] JAZLYN GARZON ([id number]) 1965 [facility] Date Time Provider Department (10104) 08/20/19 OFE GARCIA ([facility]) OBGYWM During your visit today, we recorded [...] Hives Date Reviewed: 08/17/2019 Reviewed by: Ofe ([facility]) Yoel - Fully Assessed Reason for [...] * *Final Report* * * Normal 08-17-2019 [facility] TRANSVAG DATE OF EXAM: Aug 17 2019 11:01AM [place] ([id number]) WRU 1060 - US FEMALE PELVIS TRANSVAG [...] Simple appearing cyst in the RIGHT ovary Disassembler: JEANNA Transcribe Date/Time: Aug 17 2019 11:06A Dictated by : ELLY BROWN DO This examination was interpreted and the report reviewed and electronically signed by: ELLY BROWN DO on Aug 17 2019 11:09AM EST [id number] progress on 2019-07 PROGRESS HNO ID: [id number] Normal 08-17-2019 [place] Author: Ofe Randhawa) [facility] Service: ? [place] Author Type: Nurse Practitioner ([id number]) Type: Progress Notes Filed: 08/17/2019 2:27 PM [...] stroke - Colon Cancer Father age 64 [place] - Diabetes Father Type 2 - Hypertension Father - Coronary Artery Disease Father Hx of MA - Thyroid Sister hx of parathyroid disease/ [...] 30 mins spent with visit. Ofe Garcia APRN.FURNACE COMBINATION ANALYST PROGRESS HNO ID: [id number] Normal 08-17-2019 [place] Author: Mireya Leon) [facility] Service: ? [place] Author Type: Watch Adjuster ([id number]) Type: Progress Notes Filed: 08/17/2019 11:02 AM [...] TSH Qn 2.720 0.270-4.200 uU/mL Normal 08-16-2019 [facility] (33774) Comment: Performed By: #### DHEAS, TD, PROG, E2 #### [facility] s [address] [place], [place] [address] #### EST #### [facility] [address] [place] [phone] testosterone, tot/fr on 2019-08-16 Testosterone [Mass/Vol] 22 8-60 ng/dL Normal 2019 [facility] (06369) Comment: Result Comment: (NOTE) ADDITIONA L INFORMATION Testing performed by Liquid Chromatography-Tandem Mass Spectrometry (LC-MS/MS). This test was developed and its performance characteristics determined by [facility] in a manner consistent with CLIA requirements. This test has not been cleared or approved by the U.S. Food and Drug Admin istration. Performed By: #### TFTEST ## ## [facility] [address] [place] [address] Testosterone, Free 0.22 0.06-0.92 ng/dL Normal 08-16-2019 [facility] (14889) Comment: Result Comment: (NOTE) ADDITIONA L INFORMATION Testing performed by [facility]. This test was developed and its performance characteristics determined by [facility] in a manner consistent with CLIA requirements. This test has not been cleared or approved by the U.S. Food and Drug Admin istration. Performed By: #### TFTEST ## ## [facility] [address] [place] [address] t4/fti on 2019-07-27 2 FTI 5.1 5.3-10.8 ug/dL Low 08-16-2019 [facility] (29970) Comment: Performed By: #### DHEAS, TD, PROG, E2 #### [place] [phone] #### EST #### [facility] [address] [place] [address] [phone] T4 [Mass/Vol] 5.5 5.5-10.2 ug/dL Normal 08-16-2019 [facility] (53192) Comment: Performed By: #### DHEAS, TD, PROG, E2 #### [place] [phone] #### EST #### [facility] [address] [place] [address] [phone] T4 Uptake 1.08 0.91-1.19 Normal 08-16-2019 [facility] (07044) Comment: Performed By: #### DHEAS, TD, PROG, E2 #### [place] [phone] #### EST #### [facility] [address] [place] [address] [phone] t3 on 2019-08-16 T3 102 79-165 ng/dL Normal 08-16-2019 [facility] (38919) Comment: Performed By: #### DHEAS, TD, PROG, E2 #### [address] [place] [phone] #### EST #### [facility] [facility] [address] [place] [address] [phone] progress on 2019-07 PROGRESS HNO ID: [id number] Normal 08-16-2019 [facility] Author: Hugo Dixon ([id number]) Service: ? Author Type: Physician Type: Progress [...] therapy. She has seen numerous endo and supervisor melt house physicians and has been tried on numerous [...] cream that she had gotten fro m supervisor melt house previously. We had ordered progesterone orally previously [...] metformin with possible pcos. She spoke with supervisor melt house department who recommended endometrial bi opsy. I [...] stroke - Colon Cancer Father age 64 [place] - Diabetes Father Type 2 - Hypertension Father - Coronary Artery Disease Father Hx of MA - Thyroid Sister hx of parathyroid disease/ [...] Hypothyroidism, acquired - ICD9: 244.9, ICD10: E03.9 ([facility] diagnosis) - recheck labs. - [...] info from our visit a long to supervisor melt house. Reiterated to her that I would prefer [...] more than 50% of the t otal [id number] time of the visit in counseling / coordination of care. progesterone on Progesterone 0.3 ng/mL Normal 08-16-2019 [facility] ([id number]) Comment: Result Comment: Menstrual Cy soy Progesterone Reference Ranges: Follicular:<1.0 ng/mL Ovulation:<12.1 ng/mL Luteal:1.8 to 23.9 ng/mL Progesterone Refer ence Ranges vary by gestational period: First Trimester:11.0 to 44.3 ng/mL Second Trimester:25.4 to >60 .0 ng/mL Third Trimester:58.7 to >60. 0 ng/mL Post menopausal Progesterone :<0.5 ng/mL Reference: 1. Progesterone ( Progesterone III) [package insert V 1.0 Guinean]. [facility], [place], [place]. January 2015. Performed By: #### DHEAS, TD, PROG, E2 #### [facility] [address] [place], [place] [address] #### EST #### [facility] [address] [place] [address] [phone] estrone on Estrone 23.7 pg/mL Normal 08-16-2019 [facility] ([id number]) Comment: Result Comment: (NOTE) Females: Pre-menopausal: Early follic ular <150.0 pg/mL Pre-menopausal: Late follicu lar 100.0-250.0 pg/mL Pre-menopausal: Luteal <200. 0 pg/mL Post-menopausal 3.0-32.0 pg/ mL REFERENCE INTERVAL: Estrone by TMS Access complete set of age- and/or gender-specific reference intervals for this test in [facility] Test Directory ([employer]). Test developed and character istics determined by [email or web address]. See Compliance Statement B: [facility] [employer] [facility]/ Performed by [facility] , [address] [place] [address] 8410 www.[email or web address] [facility], Wilner Saenz do, MD, Lab. Director Performed By: #### DHEAS, TD, PROG, E2 #### [facility] [address] [place] [address] #### EST #### [address] [address] [phone] estradiol-17b on 13-08-21 Estradiol-17B <25 Normal 08-16-2019 [facility] ([id number]) Comment: Result Comment: This test is not [...] E2 (Estradiol III) [package insert V 3.0 Guinean]. [facility], [place], [place], September 2015. Performed By: #### DHEAS, TD, PROG, E2 #### [facility] [address] [place] [address] #### EST #### [address] [address] [phone] cnpn on 2019-08-16 [facility] Normal 08-16-2019 [place] GARZONJAZLYN Antonieta ([id number]) 1965 [facility] Time Provider Department ([id number]) 08/16/19 HUGO NAVA During your visit today, [...] Hives Date Reviewed: 08/15/2019 Reviewed by: Ofe ([facility]) Yoel - Fully Assessed Reason for [...] 08/23/19 progress on 2019-07 PROGRESS HNO ID: [id number] Normal 08-15-2019 [place] Author: Ofe Randhawa) [facility] Service: ? [place] Author Type: Nurse Practitioner ([id number]) Type: Progress Notes Filed: 08/15/2019 3:01 PM [...] elsewhere. She has seen endocr inology at [facility], she was started on metformin for [...] stroke - Colon Cancer Father age 64 [place] - Diabetes Father Type 2 - Hypertension Father - Coronary Artery Disease Father Hx of MA - Thyroid Sister hx of parathyroid disease/ [...] on the phone with pt Ofe Garcia APRN.FURNACE COMBINATION ANALYST progress on 2019-07 PROGRESS HNO ID: [id number] Normal 08-10-2019 [facility] Author: Hugo Nava [place] ([id number]) Service: ? Author Type: Physician Type: Progress [...] stroke - Colon Cancer Father age 64 [place] - Diabetes Father Type 2 - Hypertension Father - Coronary Artery Disease Father Hx of MA - Thyroid Sister hx of parathyroid disease/ [...] TSH Qn 0.989 0.270-4.200 uU/mL Normal 07-21-2019 [facility] ([id number]) Comment: Performed By: #### DHEAS, TD, PROG, E2 #### [facility] [address] [place], [place] [address] #### EST #### [facility] [address] [place] [address] [phone] estrone on Estrone 25.5 pg/mL Normal 07-21-2019 [facility] ([id number]) Comment: Result Comment: (NOTE) Females: Pre-menopausal: Early follic ular <150.0 pg/mL Pre-menopausal: Late follicu lar 100.0-250.0 pg/mL Pre-menopausal: Luteal <200. 0 pg/mL Post-menopausal 3.0-32.0 pg/ mL REFERENCE INTERVAL: Estrone by TMS Access complete set of age- and/or gender-specific reference intervals for this test in t [facility] Test Directory ([employer]). Test developed and character istics determined by [employer]. See Compliance Statement B: [facility] [employer] [facility]/ Performed by [facility] , [address] [place], [place] [address] www.[email or web address], Wilner Saenz do, MD, Lab. Director Performed By: #### DHEAS, TD, PROG, E2 #### [facility] [address] [place] [phone] #### EST #### [facility] [address] [place] [address] [phone] estradiol-17b on 13-07-26 Estradiol-17B 46 pg/mL Normal 07-21-2019 [facility] ([id number]) Comment: Result Comment: This test is not [...] E2 (Estradiol III) [package insert V 3.0 Guinean]. [facility], [place], [place], September 2015. Performed By: #### DHEAS, TD, PROG, E2 #### [facility] [address] [place], [place] [address] #### EST #### [facility] [address] [place] [address] [phone] cnpn on 2019-07-12 [facility] ([facility]) Normal 07-12-2019 [place] [facility] JAZLYN GARZON ([id number]) 1965 F [place] Date Time Provider Department ([id number]) 07/12/19 HUGO NAVA [facility] During your visit today, we recorded the following informati on about you: Samantha Simon RN 07/12/2019 4:57 PM Signed [employer] calling to say patient needs prior auth for Vivel le-Dot. PRIOR AUTHORIZATION Medication for Prior Authorization: Vivelle-Dot Other formulary meds available : NO Insurance Company: [employer] phone number: Patient insurance ID number: [id number] Samantha Nava MD 07/12/2019 5:00 PM Signed She cannot tolerate generic. Is able to take francesco Albright Ma 07/13/2019 9:20 AM Signed -Prior Authorization has been completed online at [employer] for vivelle-dot patches, will await response. [place]DR[place]- [id number] Please keep encounter open until final decision has been rec eived and documented from insurance company. Nayeli Fitch LPN 07/31/2019 1:11 PM Signed Received below response from [employer]: Allergies As of Date: 07/12/2019 Noted Allergy [...] Fully Assessed Reason for Visit: Insurance Authorization [[id number]] Cmt: Vivelle-Dot patches Reason For Visit History [...] on 2019-07-05 CNPN Telephone ([facility]) Normal 07-05-2019 [place] JAZLYN Jones ([id number]) 1965 [facility] Date Time Provider Department ([id number]) 07/05/19 3:00 PM HUGO NAVAWS During your [...] one yane. Also saw yane Neves in [place]. They are planning on setting her up [...] stroke - Colon Cancer Father age 64 [place] - Diabetes Father Type 2 - Hypertension Father - Coronary Artery Disease Father Hx of MA - Thyroid Sister hx of parathyroid disease/ [...] OBSOLETE Refill ([facility]AMP[facility]) Normal 06-27-2019 [place] [facility] JAZLYN GARZON ([id number]) 1965 [facility] Date Time Provider Department ([id number]) 06/27/19 HUGO NAVA During your visit today, [...] 06/27/19 progress on 2019-06 PROGRESS HNO ID: [id number] Normal 06-26-2019 [place] Author: Ha Ortiz [facility] Service: ? [place] Author Type: Physician ([id number]) Type: Progress Notes Filed: 06/26/2019 9:23 AM [...] stroke - Colon Cancer Father age 64 MA - Diabetes Father Type 2 - Hypertension Father - Coronary Artery Disease Father Hx of MA - Thyroid Sister hx of parathyroid disease/ [...] 50 mg capsule Take 1 capsule by [facility] twice daily. (Patient not taking: Reported [...] year old female is being evaluated via [facility] for abnormal screenign etst for chsings [...] 324 ug/d 251 Epinephrine, Ur ratio to MUSHROOM GROWTH MEDIA MIXER 0 - 20 ug/g MUSHROOM GROWTH MEDIA MIXER 6 Norepinephrine, Ur ratio to MUSHROOM GROWTH MEDIA MIXER 0 - 45 ug/g MUSHROOM GROWTH MEDIA MIXER 46 (H) Dopamine, Ur ratio to MUSHROOM GROWTH MEDIA MIXER 0 - 250 ug/g MUSHROOM GROWTH MEDIA MIXER 194 Catecholamines Interpretation SEE NOTE Epinephrine, Ur [...] ug/d 46.3 (H) 48.8 (H) Cortisol ug/g Political Theory Professor, Ur (UFRCRT) ug/g MUSHROOM GROWTH MEDIA MIXER 32.74 33.64 Free Cortisol UR, Interpretation SEE [...] 2.3 Percent free calculation not provided by [facility]. Testosterone Free 0.06 - 0.92 ng/dL 8.8 [...] 7.2 progress on 2019-05 PROGRESS HNO ID: [id number] Normal 06-19-2019 [facility] Author: Hugo Nava [place] ([id number]) Service: ? Author Type: Physician Type: Progress [...] two days ago. She is going to poultry picker her progesterone today. Again we hav [...] 50 mg capsule Take 1 capsule by [facility] twice daily. (Patient not taking: Reported [...] stroke - Colon Cancer Father age 64 MA - Diabetes Father Type 2 - Hypertension Father - Coronary Artery Disease Father Hx of MA - Thyroid Sister hx of parathyroid disease/ [...] 2019-06-19 CNOV Office Visit ([facility]) Normal 06-19-19 [place] [facility] FLORAJAZLYN Reveles ([id number]) 1965 [facility] Date Time Provider Department ([id number]) 06/19/19 10:40 AM HUGO NAVA During your [...] two days ago. She is going to poultry picker her progesterone today. Again we have [...] stroke - Colon Cancer Father age 64 [place] - Diabetes Father Type 2 - Hypertension Father - Coronary Artery Disease Father Hx of MA - Thyroid Sister hx of parathyroid disease/ [...] 06/19/19 progress on 2019-05 PROGRESS HNO ID: [id number] Normal 06-16-2019 [facility] Author: Michelle Andrea (Tech) [place] ([id number]) Service: ? Author Type: Fur Cutter Type: Progress Notes Filed: 06/16/2019 1:48 PM [...] Michelle Andrea June 16, 2019 1:48 PM orsalie screening on 15-06-20 ROSALIE SCREENING * * *Final Report* * * Normal [facility] DATE OF EXAM: Jun 16 2019 1:18PM [place] ([id number]) [facility] 0581 - ROSALIE SCREENING / PROCEDURE REASON: Screening breast examination * * * * Physician Interpretation * * * * RESULT: #[id number] - ROSALIE SCREENING BILATERAL DIGITAL SCREENING MAMMOGRAM [...] and 01/21/2012 mammogram - [facility]. There are scattered fibroglandular elements in both [...] is recommended. Gabriella White M.D. pt/lolis:06/16/2019 13:52:33 Account Services Manager(s): RT Emre(R)(M), [facility] letter sent: Normal over 40 Mammogram BI-RADS: [...] Health, Family Medicine, and Medical/Surgical Oncology, the [facility] has carefully reviewed the data and reached [...] providers when to sto p screening mammograms. Disassembler: Lolis Transcribe Date/Time: Jun 16 2019 12:55P Dictated by: GABRIELLA WHITE MD This examination was interpreted and the report reviewed and electronically signed by: GABRIELLA WHITE MD on Jun 16 2019 1:52PM EST [id number] cnco on 2019-06-16 CNCO HNO ID: [id number] Normal 06-16-2019 [facility] Author: Mammography Coordinator ([id number]) Service: ? Author Type: Physician Type: Letter Filed: 06/19/2019 11:34 PM Note Text: June 16, 2019 PID: [id number] J[facility] [place] Garzon [address] [place] [address] Dear Sarah Garzon, We are pleased to [...] report will be kept on file at [facility] as part of your permanent medical record and are available f or your continuing care. Thank you for allowing us to help in meeting your health car e needs. Sincerely, Dr. White Interpreting Radiologist [facility] (Normal over 40) vitamin d 25 hydroxy on 2019-06-15 Vitamin D 25 Hydroxy 20.7 31.0-80.0 ng/mL Low 0 [facility] ([id number]) Comment: Result Comment: Classificati on of 25 [place] Vitamin D status: Insufficiency/Moderate Defic iency: < or = 30 ng/mL Sufficiency/Optimal Levels: 31 to 80 ng/mL Toxicity: > 100 ng/mL Test performed by chemilumin escent immunoassay. Performed By: #### DHEAS, TD, PROG, E2 #### [facility] s [address] [place], [place] [address] #### EST #### [facility] [address] [place] [phone] testosterone, tot/fr on 2019-06-15 Testosterone [Mass/Vol] 30 8-60 ng/dL Normal 2019 [facility] ([id number]) Comment: Result Comment: (NOTE) ADDITIONA L INFORMATION Testing performed by Liquid Chromatography-Tandem Mass Spectrometry (LC-MS/MS). This test was developed and its performance characteristics determined by [facility] in a manner consistent with CLIA requirements. This test has not been cleared or approved by the U.S. Food and Drug Admin istration. Performed By: #### TFTEST ## ## [facility] [address] [place] [address] Testosterone, Free 0.42 0.06-0.92 ng/dL Normal 06-15-2019 [facility] ([id number]) Comment: Result Comment: (NOTE) ADDITIONA L INFORMATION Testing performed by [facility]. This test was developed and its performance characteristics determined by [facility] in a manner consistent with CLIA requirements. This test has not been cleared or approved by the U.S. Food and Drug Admin istration. Performed By: #### TFTEST ## ## [facility] [address] [place] [address] progesterone on 202 Progesterone 0.6 ng/mL Normal 06-15-2019 [facility] ([id number]) Comment: Result Comment: Menstrual Cy soy Progesterone Reference Ranges: Follicular:<1.0 ng/mL Ovulation:<12.1 ng/mL Luteal:1.8 to 23.9 ng/mL Progesterone Refer ence Ranges vary by gestational period: First Trimester:11.0 to 44.3 ng/mL Second Trimester:25.4 to >60 .0 ng/mL Third Trimester:58.7 to >60. 0 ng/mL Post menopausal Progesterone :<0.5 ng/mL Reference: 1. Progesterone ( Progesterone III) [package insert V 1.0 Guinean]. [facility], [place], [place]. January 2015. Performed By: #### DHEAS, TD, PROG, E2 #### [facility] s [address] [place], [place] [address] #### EST #### [facility] [address] [place] [address] [phone] estrone on Estrone 25.2 pg/mL Normal 06-15-2019 [facility] ([id number]) Comment: Result Comment: (NOTE) Females: Pre-menopausal: Early follic ular <150.0 pg/mL Pre-menopausal: Late follicu lar 100.0-250.0 pg/mL Pre-menopausal: Luteal <200. 0 pg/mL Post-menopausal 3.0-32.0 pg/ mL REFERENCE INTERVAL: Estrone by [facility] Access complete set of age- and/or gender-specific reference intervals for this test in [facility] Test Directory ([employer]). Test developed and character istics determined by [employer]. See Compliance Statement B: [facility] [employer]/ Performed by [facility] , [address] [place], [place] [address] www.[email or web address], Wilner Saenz do, MD, Lab. Director Performed By: #### DHEAS, TD, PROG, E2 #### [facility] [address] [place], [place] [address] #### EST #### [facility] [address] [address] [phone] estradiol-17b on 15-06-19 Estradiol-17B <25 Normal 06-15-2019 [facility] ([id number]) Comment: Result Comment: This test is not [...] E2 (Estradiol III) [package insert V 3.0 Guinean]. [facility], [place], [place], September 2015. Performed By: #### DHEAS, TD, PROG, E2 #### [facility] [address] [place], [place] [address] #### EST #### [facility] [address] [place] [address] [phone] dhea-s on 2019-05-28 0 DHEA-S 22.7 35.4-256.0 ug/dL Low 06-15-2019 [facility] ([id number]) Comment: Result Comment: Reference ra nges are age and gender specific. For additional information, reference range tables can be found in the laboratory test directory. The normal values are based on the following source: Dehydroepiandrosterone sulfate (DHEA S) [package insert V 17.0 Guinean]. [facility], [place], [place]: November 2012. Performed By: #### DHEAS, TD, PROG, E2 #### [place] [address] [place], [place] [address] #### EST #### [facility] [address] [place], [place] [id number] [phone] cortisol on 2019-05 Cortisol 34.0 ug/dL Normal 06-15-2019 [facility] ([id number]) Comment: Result Comment: Cortisol Ref erence Range: AM = 5.3-22.5, PM = 3.4-16.8 Performed By: #### DHEAS, TD, PROG, E2 #### [facility] [address] [place], [place] [address] #### EST #### [facility] [address] [place], [place] [id number] [phone] acth on 2019-06-15 ACTH 25 <47 pg/mL Normal 06-15-2019 [facility] ([id number]) Comment: Performed By: #### DHEAS, TD, PROG, E2 #### [facility] [address] [place], [place] [address] #### EST #### [facility] [address] [place] [address] [phone] progress on 2019-05 PROGRESS HNO ID: [id number] Normal 06-14-2019 [facility] Author: Hugo Nava [place] ([id number]) Service: ? Author Type: Physician Type: Progress Notes Filed: 06/14/2019 6:08 PM Note Text: Patient presents with: Pain HPI: Patient presents today for office visit for follow up. This Team Access Model visit is a walk in encounter. It requ ired patient-provider interaction for the medical decision making as documented below. Nursing Notes: Jazlyn Gracia Ma 06/14/2019 1:23 PM Signed PAIN: Pt c/o pain in abdomen that radiates down legs. Feels like menstrual cramps. Has tender breasts. Tension headache. Racing heart. Has tremors in hands. seen in follow up from last visit. Again has an extensive li st of symptoms and has seen an extensive number of providers. 05/24/2019 She did finally get her vivelle-dot since insurance was [employer] She has not started it yet due to stresses at home. Her daughter had a tubal and her aunt is dying in hospice. She requests a r efill of xanax to get through the next few weeks. Checked oarrs. She is gelacio re of risks of meds. ? Since here last has seen gi and supervisor melt house. Wanted to have scopes p erformed by Dr. Hernandez. She states she will be getting these done. Antione wheat, has been intolerant of any class of gi meds. ? She still has an extensive list of symptoms including skin b urning, reflux. Fatigue, dizziness, abdominal fullness. Again, she has seen an extensive number of specialists toyin smith from endo, gi, surgery, pulmonary, cardiology, supervisor melt house, rheumatology, funct ional medicine, neurology, etc. She has had extensive testing. The one consistent thing is that when she can tolerate hormones, she feels relatively normal. The difficult thing is that she has been unable to tolerate much moth exterminator. We have had extensive discussions a bout [...] previously offered to have her see an flatbed press operator at a tertiary center like [facility] or [facility] or , however, she prefers t o [...] Urine <=45.0 ug/d 48.8 (H) Cortisol ug/g Political Theory Professor, Ur (UFRCRT) ug/g MUSHROOM GROWTH MEDIA MIXER 33.64 Free Cortisol UR, Interpretation SEE NOTE [...] 50 mg capsule Take 1 capsule by [facility] twice daily. (Patient not taking: Reported [...] stroke - Colon Cancer Father age 64 [place] - Diabetes Father Type 2 - Hypertension Father - Coronary Artery Disease Father Hx of MA - Thyroid Sister hx of parathyroid disease/ [...] 2019-06-14 CNOV Office Visit (FAMPWS) Normal 06-14-19 [place] JAZLYN Jones ([id number]) 1965 [facility] Date Time Provider Department ([id number]) 06/14/19 1:00 PM HUGO NAVA During your [...] providers. 05/24/2019 She did finally get her [employer] insurance was being diffult. She has not started it yet due to stresses at [facility]. Her daughter had a tubal and her aunt is dying in [facility]. She requests a refill of xanax to get through the next few weeks. Checked oarrs. She is aware of risks of meds. ? Since here last has seen gi and supervisor melt house. Wanted to have scopes performed by Dr. Hernandez. She states she will be getting these done. Again, has been intolerant of any class of gi meds. ? She still has an extensive list of symptoms including skin burning, reflux. Fatigue, dizziness, abdominal fullness. Again, she has seen an extensive number of speci alists ranging from endo, gi, surgery, pulmonary, cardiology, supervisor melt house, rheumatology, functiona l medicine, neurology, etc. She has had extensive testing. The one consistent thing is that when she can tolerate hormones, she feels relatively normal. The difficult thing is that she has been unable to tolerate much halfway . We have had extensive discussions about [...] reviously offered to have her see an flatbed press operator at a tertiary center like [facility] or [facility] or , however, she prefers to have [...] Urine <=45.0 ug/d 48.8 (H) Cortisol ug/g Political Theory Professor, Ur (UFRCRT) ug/g MUSHROOM GROWTH MEDIA MIXER 33.64 Free Cortisol UR, Interpretation SEE NOTE [...] stroke - Colon Cancer Father age 64 [place] - Diabetes Father Type 2 - Hypertension Father - Coronary Artery Disease Father Hx of MA - Thyroid Sister hx of parathyroid disease/ [...] tabletRfl: 5 DHEA-S BLD [SQDHEAS] Order #: [id number] FUTURE VITAMIN D 25 HYDROXY [SQVITD] Order #: [id number] FUTURE PROGESTERONE BLD [SQPROG] Order #: [id number] FUTURE Prescriptions as of 06/14/2019 Sig: SYNTHROID [...] TSH Qn 2.610 0.270-4.200 uU/mL Normal 06-05-2019 [facility] ([id number]) Comment: Performed By: #### DHEAS, TD, PROG, E2 #### [facility] [address] [place] [phone] #### EST #### [facility] [address] [place] [address] [phone] period and volume o n 2019-05-25 Period 24 hr Normal 05-25-2019 [facility] ([id number]) Comment: Performed By: #### DHEAS, TD, PROG, E2 #### [facility] [address] [place] [phone] #### EST #### [facility] [address] [place] [address] -[address] Volume 3300 mL Normal 05-25-2019 [facility] ([id number]) Comment: Performed By: #### DHEAS, TD, PROG, E2 #### [facility] [address] [place] [phone] #### EST #### [facility] [address] [place] [address] -743 creatinine,urine,24h on 2019-05-25 Creatinine,Urine,24h 1.452 0.8-1.8 g/24 hr Normal 0 [facility] ([id number]) Comment: Performed By: #### DHEAS, TD, PROG, E2 #### [facility] [address] [place] [phone] #### EST #### [facility] [address] [place] [address] [phone] progress on 2019-04 PROGRESS HNO ID: [id number] Normal 05-24-2019 [facility] Author: Hugo Dixon ([id number]) Service: ? Author Type: Physician Type: Progress Notes Filed: 05/24/2019 5:24 PM Note Text: Patient presents with: Dizziness HPI: Patient presents today for office visit for follow up. She did finally get her vivelle-dot since insurance was [employer] She has not started it yet due to stresses at home. Her daughter had a tubal and her aunt is dying in hospice. She requests a r efill of xanax to get through the next few weeks. Checked oarrs. She is gelacio re of risks of meds. Since here last has seen gi and supervisor melt house. Wanted to have scopes p erformed by Dr. Hernandez. She states she will be getting these done. Antione wheat, has been intolerant of any class of gi meds. She still has an extensive list of symptoms including skin b urning, reflux. Fatigue, dizziness, abdominal fullness. Again, she has seen an extensive number of specialists toyin smith from endo, gi, surgery, pulmonary, cardiology, supervisor melt house, rheumatology, funct ional medicine, neurology, etc. She has had extensive testing. The one consistent thing is that when she can tolerate hormones, she feels relatively normal. The difficult thing is that she has been unable to tolerate much moth exterminator. We have had extensive discussions a bout [...] previously offered to have her see an flatbed press operator at a tertiary center like [facility] or [facility] or , however, she prefers t o [...] 25 mg tablet Take 1 tablet by [facility] once daily as needed. - Estradiol [...] stroke - Colon Cancer Father age 64 [place] - Diabetes Father Type 2 - Hypertension Father - Coronary Artery Disease Father Hx of MA - Thyroid Sister hx of parathyroid disease/ [...] cm nodule not noted on previous ct(06/14)-seen [facility] ER ct-08/25/18, repeat ct in 04/13 adrenal described as normal. Extensive review shows she had a 1.4 cm adrenal thickening i ntermittently noted dating back to at least 2012. Has seen endo and neuroe ndo surg for the same. Would not rework up unless changes. Hugo Nava MD cnov on 2019-05-24 CNOV Office Visit (FAMPWS) Normal 05-24-19 [address] [place] JAZLYN Jones ([id number]) 1965 [place] Date Time Provider Department ([id number]) 05/24/19 3:20 PM HUGO NAVA During your visit today, we recorded the following informati on about you: Pulse Blood pressure Weight 96/minute 142/82 90.3 kg Sudha Pink CYLINDER DYER 05/24/2019 3:36 PM Signed For about 4-5 [...] follow up. She did finally get her [employer] insurance was being diffult. She has not started it yet due to stresses at [facility]. Her daughter had a tubal and her aunt is dying in [facility]. She requests a refill of xanax to get through the next few weeks. Checked oarrs. She is aware of risks of meds. Since here last has seen gi and supervisor melt house. Wanted to have scopes performed by Dr. Hernandez. She states she will be getting these done. Again, has been intolerant of any class of gi meds. She still has an extensive list of symptoms including skin burning, reflux. Fatigue, dizziness, abdominal fullness. Again, she has seen an extensive number of speci alists ranging from endo, gi, surgery, pulmonary, cardiology, supervisor melt house, rheumatology, functiona l medicine, neurology, etc. She has had extensive testing. The one consistent thing is that when she can tolerate hormones, she feels relatively normal. The difficult thing is that she has been unable to tolerate much moth exterminator . We have had extensive discussions about [...] reviously offered to have her see an flatbed press operator at a tertiary center like [facility] or [facility] or , however, she prefers to have [...] stroke - Colon Cancer Father age 64 [place] - Diabetes Father Type 2 - Hypertension Father - Coronary Artery Disease Father Hx of MA - Thyroid Sister hx of parathyroid disease/ [...] nodule not noted on previous ct(06/14)-se en [facility] ER ct-08/25/18, repeat ct in [...] capsuleRfl: 2 ESTRADIOL-17B BLD [SQE2] Order #: [id number] STANDING ESTRONE BLD [SQEST] Order #: [id number] STANDING TESTOSTERONE, FREE AND TOTAL [SQFTESTO] Order #: [id number] STANDING ALPRAZolam (XANAX) 1 mg tabletTake 1 [...] 08/25/2018 More... Visit Notes: >> Sudha Pink CYLINDER DYER WedMay 24, 2019 3:29 PM Status: Signed [...] mouth every 4 hours as needed (FOR PRACTICING DERMATOLOGIST MPING). Disc: Reason for discontinue is not on file. Disposition: Return in about 4 weeks (around 06/21/2019). Follow-up and Disposition History Recorded Encounter Status:Closed by HUGO NAVA MD on 05/24/19 urinalysis with microscopic on 2019-05-12 Bilirubin, Urine Negative Negative Normal 05-12-2019 [facility] ([id number]) Comment: Performed By: #### TFTEST ## ## [facility] [address] [place] [id number] Clarity (U) Clear Clear Normal 05-12-2019 [facility] (88807) Comment: Performed By: #### TFTEST ## ## [facility] [address] [place] [place] [address] Color (U) Yellow Yellow Normal 05-12-2019 [facility] (40581) Comment: Performed By: #### TFTEST ## ## [facility] [address] [place] [address] Comments SEE COMMENT Normal 05-12-2019 [facility] (97331) Comment: Result Comment: N/A Performed By: #### TFTEST ## ## [facility] [address] [place] [address] Epithelial cells LM.HPF SEE COMMENT Normal 04-26 [facility] (Urine sed) [#/Area] [place] ([id number]) Comment: Result Comment: Few Squamous Epithelial Cells Performed By: #### TFTEST ## ## [facility] [address] [place] [address] Glucose Ql (U) Negative Negative Normal 05-12-[address] [facility] (93204) Comment: Performed By: #### TFTEST ## ## [facility] [address] [place] [address] Hemoglobin/Blood,Ur 1+ Negative Critically abnormal 05-12-2019 [facility] (51358) Comment: Performed By: #### TFTEST ## ## [facility] [address] [place] [place] [address] Ketones Ql (U) Negative Negative Normal 05-12-[address] [facility] (76779) Comment: Performed By: #### TFTEST ## ## [facility] [address] [place] [address] Leukest Negative Negative Normal 05-12-2019 [facility] (76310) Comment: Performed By: #### TFTEST ## ## [facility] [address] [place] [address] Nitrite Ql (U) Negative Negative Normal 05-12-[address] [facility] (35083) Comment: Performed By: #### TFTEST ## ## [facility] [address] [facility] [address] [place] [address] pH (Bld) 6.0 4.5-8.0 Normal 05-12-2019 [facility] (18544) Comment: Performed By: #### TFTEST ## ## [facility] [address] [place] [address] Protein (U) [Mass/Vol] Negative Negative mg/dL Normal [facility] (60318) Comment: Performed By: #### TFTEST ## ## [facility] [address] [place] [address] RBC (U) [#/Vol] 0-3 0-3 Normal 05-12-2019 [facility] (87411) Comment: Performed By: #### TFTEST ## ## [facility] [address] [place] [address] Specific Rye, Ur 1.010 1.005-1.030 Normal [facility] (57870) Comment: Performed By: #### TFTEST ## ## [facility] [address] [place] [address] Urine Vladimir Comment SEE COMMENT Normal 05-12-2019 [facility] (25122) Comment: Result Comment: N/A Performed By: #### TFTEST ## ## [facility] [address] [place] [address] Urobilinogen Qn (U) Normal Normal Normal 05-12-2019 [facility] (04130) Comment: Performed By: #### TFTEST ## ## [facility] [address] [place] [address] WBC (Bld) [#/Vol] 0-5 0-5 Normal 05-12-2019 [facility] (39736) Comment: Performed By: #### TFTEST ## ## [facility] [address] [place] [address] progress on 2019-04 PROGRESS HNO ID: [id number] Normal 05-12-2019 [facility] Author: Antonieta Esqueda (PaGenoC) [facility] (91571) Service: ? Author Type: Physician Shield Installer Type: Progress Notes Filed: 05/12/2019 6:18 PM [...] stroke - Colon Cancer Father age 64 MA - Diabetes Father Type 2 - Hypertension Father - Coronary Artery Disease Father Hx of MA - Thyroid Sister hx of parathyroid disease/ [...] 25 mg tablet Take 1 tablet by [facility] once daily as needed. 10 tablet [...] (WOOB) Normal 05-12-2019 Yusef mckeon JAZLYN Jones ([id number]) 1965 [facility] Date Time Provider Department ([id number]) 05/12/19 8:00 AM ZOË DEJESUS WOOB During your visit today, we recorded the following informati on about you: Referring Provider: MIREYA BARRERA ([facility]) [[id number]] Allergies As of Date: 05/12/2019 Noted Allergy [...] Ma - Fully Assessed Reason for Visit: BOWLING PIN REFINISHER Ultrasound [[id number]] Primary Visit Diagnosis:Cyst of right ovary [N83.201] [...] 2019-05-12 CNOV Office Visit (FAMPWS) Normal 05-12-19 [place] JAZLYN Jones ([id number]) 1965 [facility] Date Time Provider Department (42019) 05/12/19 1:40 PM [facility] your visit today, we recorded the [...] stroke - Colon Cancer Father age 64 MA - Diabetes Father Type 2 - Hypertension Father - Coronary Artery Disease Father Hx of MA - Thyroid Sister hx of parathyroid disease/ [...] - Rectocele 05/13/2009 - SVT (supraventricular tachycardia) ([facility]) - Syncope 05/14/2013 -Reported that [...] ) - lancets (FREESTYLE LANCETS) [facility] USE FOUR T IMES DAILY DIRECTED [...] Diagnosis:Lower abdominal pain [R10.30] Order(s):UA DIP B/O [2976796] Order #: [id number] UA DIP, URINE (POC) [7883723] Order #: [id number]. #:[id number] URINALYSIS WITH MICROSCOPIC [SQUAWMIC] Order #: [id number] ec. #:[id number] Prescriptions as of 05/12/2019 Sig: SYNTHROID 137 [...] on 2019-04 OBSOLETE Refill (FAMPWS) Normal 05-09-2019 [facility] JAZLYN Jones ([id number]) 1965 [facility] Time Provider Department ([id number]) 05/09/19 HUGO NAVA FAMPWS During your visit today, we recorded the following informati on about you: Katlyn Mills LPN 05/09/2019 11:03 AM Signed [facility] faxed a request for the following [...] 05/09/19 progress on 2019-04 PROGRESS HNO ID: [id number] Normal 05-05-2019 [facility] Author: Melissa Silva Dixon ([id number]) Service: ? Author Type: Nurse Practitioner Type: [...] right lower quadrant d escribed as cramping. BOWLING PIN REFINISHER: Negative for abnormal vaginal bleeding, abnormal vagina [...] stroke - Colon Cancer Father age 64 MA - Diabetes Father Type 2 - Hypertension Father - Coronary Artery Disease Father Hx of MA - Thyroid Sister hx of parathyroid disease/ [...] 25 mg tablet Take 1 tablet by [facility] once daily as needed. 10 tablet [...] with more than 50% of the total lhrl-vl-jhre t giancarlo of the visit in counseling / coordination of care. Melissa Silva RN APRN.DHIRAJ españaov on 2019-05-05 CNOV Office Visit ([facility]) Normal 05-05-19 [place] [facility] JAZLYN GARZON ([id number]) 1965 [facility] Date Time Provider Department ([id number]) 05/05/19 8:40 AM MELISSA SILVA [facility] During your visit today, we recorded the following informati on about you: Pulse Blood pressure Weight Height 103/minute 138/92 89.8 kg 1.575 m Melissa Silva RN APRN.FURNACE COMBINATION ANALYST 05/05/2019 9:13 AM Signed Jazlyn Garzon a [...] and right lower quadrant described as cramping. BOWLING PIN REFINISHER: Negative for abnormal vaginal bleeding, abn ormal [...] stroke - Colon Cancer Father age 64 MA - Diabetes Father Type 2 - Hypertension Father - Coronary Artery Disease Father Hx of MA - Thyroid Sister hx of parathyroid disease/ [...] with more than 50% of the total kowm-mw-eyvx time of the visit in counseling / coordination of care. Melissa Silva RN FAST FOOD DELIVERY DRIVER.DHIRAJ Silva RN APRN.DHIRAJ 05/05/2019 9:02 AM Signed [...] Visit Diagnosis:Family history of colon cancer in [facility] [Z80.0] Prescriptions as of 05/05/2019 Sig: [...] TSH Qn 5.060 0.270-4.200 uU/mL High 05-02-2019 [facility] (62957) Comment: Performed By: #### TSH ####C [facility] [address] [place], [place] [phone] progress on 2019-04 PROGRESS HNO ID: [id number] Normal 05-02-2019 [facility] Author: Antonieta Esqueda (Gregorio) Marcial Dixon ([id number]) Service: ? Author Type: Physician Shield Installer Type: Progress Notes Filed: 05/02/2019 8:55 AM [...] diagnosed with RLL per CXR 04/23 in [facility] ED. Was started on Zithromax. Sx first a week before Ray. Nephew had pneumonia. No fever. Cough, wheezing. [...] stroke - Colon Cancer Father age 64 [place] - Diabetes Father Type 2 - Hypertension Father - Coronary Artery Disease Father Hx of MA - Thyroid Sister hx of parathyroid disease/ [...] 2019-05-02 CNOV Office Visit (FAMPWS) Normal 05-02-[address] [place] [address] JAZLYN Jones ([id number]) 1965 [facility] Date Time Provider Department ([id number]) 05/02/19 8:00 AM Antonieta CEJA) FAMPWS During [...] wi th RLL per CXR 04/23/20 in [facility] ED. Was started on Zithromax. [...] stroke - Colon Cancer Father age 64 MA - Diabetes Father Type 2 - Hypertension Father - Coronary Artery Disease Father Hx of MA - Thyroid Sister hx of parathyroid disease/ [...] is an infection of the bronchial (say: ?rjrln-oex-jcx?) tree. The bronchial tree is made u [...] talk to your family doctor. Copyright ? [id number] [employer] [employer] Permission is granted [...] talk to your family doctor. Copyright ? [phone] [employer] [employer] Permission is granted [...] Normal 04-20-2019 [place] GARZONJAZLYN Antonieta ([id number]) 1965 [facility] Time Provider Department (45782) 04/20/19 HUGO NAVA FAMPWS During your visit [...] 04/20/19 progress on 2019-03 PROGRESS HNO ID: [id number] Normal 04-12-2019 [facility] Author: Ivy Cleary [place] ([id number]) Service: ? Author Type: Psychologist Type: Progress Notes Filed: 04/12/2019 10:36 AM Note Text: [facility] Progress Note Jazlyn Garzon 04/11/2019 [id number] Provider: Ivy Steele PSYD CPT Code: 37708 Psychotherapy 38-52 minutes Time: Approximately 45 minutes [...] a routine culture is not recommended. Molecula (39059) r testing is the most sensit yocasta [...] instructions. Comment: Performed By: #### TSH #### [facility] [address] [place], [place] [address] progress on 2019-03 PROGRESS HNO ID: [id number] Normal 04-05-2019 [facility] Author: Ofe Randhawa) Yoel Dixon (82009) Service: ? Author Type: Nurse Practitioner Type: [...] genitalia normal, normal Bartholin's glands , urethra, [place]'s glands, no vulvar lesions, no cervical lesions, phys iologic discharge present, normal appearing perineal body and perian al region Slight uterus prolapse??? BIMANUAL: uterus normal size, shape and consistency, no adne xal masses and non-tender. RECTOVAGINAL: deferred. ASSESSMENT/PLAN: 1. Vaginal irritation - ICD9: 623.9, ICD10: N89.8 (primary d iagnosis) - WOUND CULTURE AND GRAM STAIN- if negative pt to schedule w [facility] pelvic pain clinic 2. Pelvic pain in female - ICD9: 625.9, ICD10: R10.2 - CONSULT TO BOWLING PIN REFINISHER PELVIC PAIN GIOVANNI Kent on 2019-04-05 CNOV Office Visit (WOOB) Normal 04-05-2019 [facility] JAZLYN GARZON ([id number]) 1965 [facility] Date Time Provider Department ([id number]) 04/05/19 9:00 AM OFE GARCIA (DHIRAJ) WOOB [...] genitalia normal, redd l Bartholin's glands, urethra, [place]'s glands, no vulvar lesions, no cervical l [...] ICD9: 625.9, ICD10: R10.2 - CONSULT TO BOWLING PIN REFINISHER PELVIC PAIN Ofe Garcia APRN.FURNACE COMBINATION ANALYST Referring Provider: SELF [200] Allergies As of [...] AND GRAM STAIN [SQWCUL] Order #: [id number] CONSULT TO BOWLING PIN REFINISHER PELVIC PAIN [8201860] Order #: [id number]: 1 FUTURE Prescriptions as of 04/05/2019 Sig: [...] 04/05/19 progress on 2019-03 PROGRESS HNO ID: [id number] Normal 04-03-2019 [facility] Author: Antonieta Esqueda (Pa-C) Marcial Dixon ([id number]) Service: ? Author Type: Physician Shield Installer Type: Progress Notes Filed: 04/03/2019 7:18 PM [...] stroke - Colon Cancer Father age 64 MA - Diabetes Father Type 2 - Hypertension Father - Coronary Artery Disease Father Hx of MA - Thyroid Sister hx of parathyroid disease/ [...] ICD9: 625.8, ICD10: N94.89 Follow up with BOWLING PIN REFINISHER or Endo to discuss risk of unopposed estr ogen and possible treatment - HYOSCYAMINE 0.125 MG SUBLINGUAL TABLET 3. Swelling - ICD9: 782.3, ICD10: R60.9 Use diuretic prn sparingly. - CHLORTHALIDONE 25 MG TABLET 4. Hormone disturbance - ICD9: 259.9, ICD10: E34.9 As above M Dheeraj Ceja PA-C cnov on 2019-04-03 CNOV Office Visit (FAMPWS) Normal 04-03-20 [address] [place] JAZLYN GARZON ([id number]) 1965 [place] Date Time Provider Department ([id number]) 04/03/19 11:20 AM Antonieta CEJA) CATHERINEPWS During [...] stroke - Colon Cancer Father age 64 MA - Diabetes Father Type 2 - Hypertension Father - Coronary Artery Disease Father Hx of MA - Thyroid Sister hx of parathyroid disease/ [...] ICD9: 625.8, ICD10: N94.89 Follow up with BOWLING PIN REFINISHER or Endo to discuss risk of un [...] scan was negative ER F/U [41] Cmt: [facility] ER follow up 03/31/19 Reason [...] mouth every 4 hours as needed (FOR PRACTICING DERMATOLOGIST MPING). CHLORTHALIDONE 25 MG TABLET 10 t* [...] 2019-03-31 Trichomonas Prep Sp. Request/Comment: - Swab Rded l 03-31-2019 [facility] Smear Result - Negative for Trichomonas vaginalis antigen This test was developed and its performance characteristics determined by [facility]'s Isael Treviño Pathology [facility] [place] ([id number]) [place] ([facility]). It has not been cleared or approved by the FDA. [facility] is regulated under CLIA as qualified to perform high complexity testing. This test is used for clinical purposes. It should not be regarded as investigational or for research. Comment: Performed By: #### TFTEST ## ## [facility] [address] [place] [address] [place] [address] progress on 2019-03 PROGRESS HNO ID: [id number] Normal 03-31-2019 [place] Author: Mireya Benz) [facility] Service: ? [place] Author Type: [employer] ([id number]) Type: Progress Notes Filed: 04/04/2019 10:42 PM [...] stroke - Colon Cancer Father age 64 MA - Diabetes Father Type 2 - Hypertension Father - Coronary Artery Disease Father Hx of MA - Thyroid Sister hx of parathyroid disease/ [...] genitalia normal, normal Bartholin's glands , urethra, [place]'s glands, no vulvar lesions, no cervical lesions, [...] that, I have worked with a [facility] auto apprentice mechanic from the [facility]. I stated this wa s my advice [...] Chlamydia Amplif Negative for Chlamydia Normal 03-31-2019 [facility] trachomatis by Ari guevara ([id number]) amplification. Comment: Performed By: #### DHEAS, TD, PROG, E2 #### [facility] [address] [place] [address] #### EST #### [facility] [address] [place] [address] [phone] GC Amplification Negative for Neisseria Normal 03-31-2019 [facility] gonorrhoeae by Ari guevara ([id number]) amplification. Comment: Performed By: #### DHEAS, TD, PROG, E2 #### [facility] [address] [place] [address] #### EST #### [facility] [address] [place] [address] [phone] GC/Chlam Amp Source Cervix Normal 03-31-2019 [facility] (49389) Comment: Performed By: #### DHEAS, TD, PROG, E2 #### [facility] [address] [place], [place] [address] #### EST #### [facility] [address] [place] [address] [phone] cnov on 2019-03-31 CNOV Office Visit (WOOB) Normal 03-31-2019 [place] [facility] GARZONJAZLYN Antonieta ([id number]) 1965 [facility] Date Time Provider Department ([id number]) 03/31/19 1:40 PM MIREYA BARRERA ([facility]) WOOB During your visit today, we recorded the following informati on about you: Blood pressure Weight 132/94 87.5 kg Mireya Barrera APRN.CNM 04/04/2019 10:42 PM Signed Jazlyn Garzon is a 53 year ol d female who presents for problem visit with pelvic pain. HPI:Patient seen today as walk in visit with multiple compla ints. Has history of bacterial vaginosis. [facility]. Estrogel [...] complaints, history, and providers seen in the [facility]. 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 I sta geoff this was my advice [...] [N89.8] Order(s):GC/CHLAMYDIA DNA DET [SQGCCAMP] Order #: [id number] Spec. #:[id number] BACT/NANCY VAG GRAM STAIN [SQBVCNSM] Order #: [id number] ec. #:[id number] TRICHOMONAS PREP [SQTRICHO] Order #: [id number]. #:[id number] [] fluconazole (DIFLUCAN) 150 mg [...] Sp. Request/Comment: - Swab Norm al 03-31-2019 [facility] ([id number]) Smear Result - Stain results consistent with normal vaginal ishmael. No Yeast observed Few Polymorphonuclear leukocytes Comment: Performed By: #### TFTEST ## ## [facility] [address] [place], [place] [id number] obsolete on 2019-03 OBSOLETE Refill (FAMPWS) Normal 03-28-2019 [facility] ([id number]) 1965 [facility] Date Time Provider Department (72142) 03/28/19 HUGO NAVA FAMPWS During your visit today, we recorded the following informati on about you: Katlyn Mills LPN 03/28/2019 11:56 AM Signed [facility] faxed a request for the following [...] Telephone (ENDOSO) Normal 03-28-2019 [place] JAZLYN Jones ([id number]) 1965 [place] Date Time Provider Department (24838) 03/28/19 HA ORTIZ During your visit today, we recorded the following informati on about you: Ha Ortiz MD 03/28/2019 3:03 PM Signed 24 hr urine order is in MD Jackelyn Dinero Pss 03/28/2019 4:47 PM Signed Denise from [facility] lab is calling and the urine is contaminated and patient needs to come back in to give a new urine. She can b e reached at [phone]. Thank You Mayela Lemon Ma 03/30/2019 7:49 [...] Order(s):FREE ALVERTO, UR LCMSMS [SQUFRCRT] Order #: [id number] FUTURE FREE ALVERTO, UR LCMSMS [SQUFRCRT] Order #: [id number] FUTURE CREATININE 24 HR UR [SQUCRD] Order #: [id number] FUTURE Prescriptions as of 03/28/2019 Sig: SYNTHROID [...] * *Final Report* * * Normal 03-27-2019 [facility] TRANSVAG DATE OF EXAM: Mar 27 2019 7:45AM [place] ([id number]) U 1060 - US FEMALE PELVIS TRANSVAG [...] as discussed 2. Small RIGHT ovarian cyst Disassembler: [facility] Transcribe Date/Time: Mar 27 2019 8:07A Dictated by : ELLY BROWN DO This examination was interpreted and the report reviewed and electronically signed by: ELLY BROWN DO on Mar 27 2019 8:11AM EST [id number] progress on 2019-03 PROGRESS HNO ID: [id number] Normal 03-27-2019 [facility] Author: Mireya Dixon ([id number]) Service: ? Author Type: Watch Adjuster Type: Progress Notes Filed: 03/27/2019 7:46 AM [...] vitamin b12 on 2018 Cobalamin (Vitamin B12) 856 254-2807 pg/mL Normal 2018 [facility] [Mass/Vol] [place] (19511) Comment: Performed By: #### TSH #### [facility] [address] [place] [phone] urine culture on 14-03-27 Bacteria identified Sp. Request/Comment: - Specimen received in pre servative Normal 03-22-2019 [facility] Cx Nom (U) [place] (10412) Culture Result - No growth (<1,000 CFU/ml) Comment: Performed By: #### TFTEST ## ## [facility] [address] [place] [address] urinalysis with microscopic on 2019-03-22 Bilirubin, Urine Negative Negative Normal 03-22-2019 [facility] (16837) Comment: Performed By: #### DHEAS, TD, PROG, E2 #### [facility] [address] [place] [phone] #### EST #### [facility] [address] [place] [address] [phone] Clarity (U) Clear Clear Normal 03-22-2019 [facility] (82471) Comment: Performed By: #### DHEAS, TD, PROG, E2 #### [facility] [address] [place] [phone] #### EST #### [facility] [address] [place] [address] [phone] Color (U) Yellow Yellow Normal 03-22-2019 [facility] (75752) Comment: Performed By: #### DHEAS, TD, PROG, E2 #### [facility] [address] [place] [phone] #### EST #### [facility] [address] [place] [address] [phone] Comments SEE COMMENT Normal 03-22-2019 [facility] (31197) Comment: Result Comment: N/A Performed By: #### DHEAS, TD, PROG, E2 #### [facility] [address] [place] [phone] #### EST #### [facility] [address] [place] [address] [phone] Epithelial cells LM.HPF SEE COMMENT Normal 02-25 [facility] (Urine sed) [#/Area] [place] (93601) Comment: Result Comment: Few Squamous Epithelial Cells Performed By: #### DHEAS, TD, PROG, E2 #### [facility] [address] [place] [phone] #### EST #### [facility] [address] [place] [address] [phone] Glucose Ql (U) Negative Negative Normal 03-22-[address] [facility] (66122) Comment: Performed By: #### DHEAS, TD, PROG, E2 #### [facility] [place] [phone] #### EST #### [facility] [address] [place] [address] [phone] Hemoglobin/Blood,Ur 2+ Negative Critically abnormal 03-22-2019 [facility] (19674) Comment: Performed By: #### DHEAS, TD, PROG, E2 #### [facility] [address] [place] [phone] #### EST #### [facility] [address] [place] [address] [phone] Ketones Ql (U) Negative Negative Normal 03-22-[address] [facility] (88963) Comment: Performed By: #### DHEAS, TD, PROG, E2 #### [facility] [address] [place] [phone] #### EST #### [facility] [address] [place] [address] [phone] Leukest Negative Negative Normal 03-22-2019 [facility] (99972) Comment: Performed By: #### DHEAS, TD, PROG, E2 #### [facility] [address] [place] [phone] #### EST #### [facility] [address] [place] [address] [phone] Nitrite Ql (U) Negative Negative Normal 03-22-[address] [facility] (81489) Comment: Performed By: #### DHEAS, TD, PROG, E2 #### [facility] [place] [phone] #### EST #### [facility] [address] [place] [address] [phone] pH (Bld) 7.0 4.5-8.0 Normal 03-22-2019 [facility] (47096) Comment: Performed By: #### DHEAS, TD, PROG, E2 #### [place] [phone] #### EST #### [facility] [address] [place] [address] [phone] Protein (U) [Mass/Vol] Negative Negative mg/dL Normal [address] [place] [address] (65350) Comment: Performed By: #### DHEAS, TD, PROG, E2 #### [place] [address] [place] [phone] #### EST #### [facility] [address] [place] [address] [phone] RBC (U) [#/Vol] 0-3 0-3 Normal 03-22-2019 [facility] (69070) Comment: Performed By: #### DHEAS, TD, PROG, E2 #### [place] [address] [place] [phone] #### EST #### [facility] [address] [place] [address] [phone] Specific [place], Ur 1.010 1.005-1.030 Normal 019 [facility] (84449) Comment: Performed By: #### DHEAS, TD, PROG, E2 #### [facility] [address] [place] [phone] #### EST #### [facility] [address] [place] [address] [phone] Urine Vladimir Comment SEE COMMENT Normal 03-22-2019 [facility] (12873) Comment: Result Comment: Result reche cked. Performed By: #### DHEAS, TD, PROG, E2 #### [facility] [address] [place] [phone] #### EST #### [facility] [address] [place] [address] [phone] Urobilinogen Qn (U) Normal Normal Normal 03-22-2019 [facility] (69938) Comment: Performed By: #### DHEAS, TD, PROG, E2 #### [facility] [address] [place] [phone] #### EST #### [facility] [address] [place] [address] [phone] WBC (Bld) [#/Vol] 0-5 0-5 Normal 03-22-2019 [facility] (74420) Comment: Performed By: #### DHEAS, TD, PROG, E2 #### [facility] [address] [place] [phone] #### EST #### [facility] [address] [place] [address] [phone] progress on 2019-02 PROGRESS HNO ID: [id number] Normal 03-22-2019 [facility] Author: Hugo Dixon ([id number]) Service: ? Author Type: Physician Type: Progress [...] extensive testing by several c cristiandiologists in [facility] and at [facility], multiple endocrinologists, endo surgery, several gastroenterologists, general [...] Lymph 1.00 - 4.00 k/uL 4.03 (H) [place]% % 9.0 Abs [place] <0.87 k/uL 1.03 (H) Eosin% % 2.5 [...] stroke - Colon Cancer Father age 64 [place] - Diabetes Father Type 2 - Hypertension Father - Coronary Artery Disease Father Hx of [place] - Thyroid Sister hx of parathyroid disease/ [...] JAK2 V617F Interp (NOTE) Normal 03-22-2019 [facility] (89466) Comment: Result Comment: Performing P athologist: Dr. [...] end DNA sequencing was performed on the [employer] in [facility] ([place], [place]). A customized bioinformatic pipeline was u [...] 1% allele proportion for the JA K2 [id number] single nucleotide variant and approximately 5% allele [...] developed and its performance characteristics determined by [facility]'s Isael Kwabena [facility] ([facility]). It has not been cleared or approved by the FDA. [facility] is regulated under CLIA as qualified to [...] DHEAS, TD, PROG, E2 #### [facility] [address] [place], [place] [address] #### EST #### [address] [address] [phone] folate, serum on 14-03-27 Folate [Mass/Vol] 12.3 >4.7 ng/mL Normal 03-22-2019 [facility] (93287) Comment: Performed By: #### TSH #### [facility] [address] [place], [place] [address] epo on 2019-03-22 EPO 6.3 2.6-18.5 mIU/mL Normal 03-22-2019 [facility] (33481) Comment: Result Comment: Test analyze d by the Yanna DxI method. Performed By: #### TSH #### [facility] [address] [place], [place] [address] cnov on 2019-03-22 CNOV Office Visit (FAMPWS) Normal 03-22-20 19 [place] [facility] JAZLYN GARZON ([id number]) 1965 [facility] Date Time Provider Department ([id number]) 03/22/19 10:00 AM HUGO NAVA [facility] During your visit today, we recorded the [...] had extensive testing by several cardiologists in [facility] and at [facility], multiple endocrinologists, endo surgery, se rodriguez gastroenterologists, [...] have egd and colonoscopy scheduled in the [facility]. They wanted to have her to have [...] Lymph 1.00 - 4.00 k/uL 4.03 (H) [place]% % 9.0 Abs [place] <0.87 k/uL 1.03 (H) Eosin% % 2.5 [...] stroke - Colon Cancer Father age 64 [place] - Diabetes Father Type 2 - Hypertension Father - Coronary Artery Disease Father Hx of [place] - Thyroid Sister hx of parathyroid disease/ [...] breast examination [Z12.39] Order(s):US FEMALE PELVIS TRANSVAG [0591328] Order #: [id number] FUTURE metroNIDAZOLE (METROGEL VAGINAL) 0.75 % Vaginal GelUse 1 Applicatorful vaginally daily at bedtime.Disp: 70 gRfl: 0 ROSALIE SCREENING [[id number]] Order #: [id number] FUTURE UA DIP, URINE (POC) [] Order #: [id number]. #:[id number] URINE CULTURE [SQURCUL] Order #: [id number] URINALYSIS WITH MICROSCOPIC [SQUAWMIC] Order #: [id number] UA DIP, URINE (POC) [] Order #: [id number] Prescriptions as of 03/22/2019 Sig: LANCETS 28 [...] 2019-03-22 Carboxyhemoglobin,Joel 7.1 <2.0 % High 03-22-20 [facility] (83747) Comment: Performed By: #### TSH #### [facility] [address] [place] [id number] n-methylhistamine,ur on 2019-03-21 Collection duration (U) 24 Normal 2018 [facility] (29220) Comment: Performed By: #### TFTEST ## ## [facility] [address] [place] [address] Creatinine [Mass/Vol] 64 mg/dL Normal 03-21-20 [facility] (69742) Comment: Performed By: #### TFTEST ## ## [facility] [address] [place] [address] N-Methylhistamine,Ur 72 30-200 mcg/g Cr Normal 9 [facility] (14330) Comment: Performed By: #### TFTEST ## ## [facility] [address] [place] [address] Urine Volume 2500 Normal 03-21-2019 [facility] (54549) Comment: Performed By: #### TFTEST ## ## [facility] [address] [place] [address] tsh on 2019-03-20 TSH Qn 3.110 0.270-4.200 uU/mL Normal 03-20-2019 [facility] (98898) Comment: Performed By: #### DHEAS, TD, PROG, E2 #### [facility] [address] [place] [phone] #### EST #### [facility] [address] [place] [address] [phone] tryptase on 2019-02 Tryptase 7.2 <8.4 ug/L Normal 03-20-2019 [facility] (30441) Comment: Performed By: #### DHEAS, TD, PROG, E2 #### [facility] [address] [place] [phone] #### EST #### [facility] [address] [place] [address] [phone] progress on 2019-02 PROGRESS HNO ID: [id number] Normal 03-20-2019 [facility] Author: Hugo Nava Dixon ([id number]) Service: ? Author Type: Physician Type: Progress [...] physician. She would need to see an archeology faculty member/salesperson floor coverings to further evaluate these issu es and perhaps a transition rn. She has polycythemia likely related to her smoking and intermittent elevated white counts. She had been set up previously to see immunology and [facility] She did not keep her appt [...] stroke - Colon Cancer Father age 64 [place] - Diabetes Father Type 2 - Hypertension Father - Coronary Artery Disease Father Hx of [place] - Thyroid Sister hx of parathyroid disease/ [...] Albumin [Mass/Vol] 4.4 3.9-4.9 g/dL Normal 03-20-2019 [facility] (09831) Comment: Performed By: #### DHEAS, TD, PROG, E2 #### [facility] [address] [place] [phone] #### EST #### [facility] [address] [place] [address] [phone] ALP [Catalytic activity/Vol] 72 34-123 U/L Normal 1 05-20-2018 [facility] (21831) Comment: Performed By: #### DHEAS, TD, PROG, E2 #### [facility] [address] [place] [phone] #### EST #### [facility] [address] [place] [address] [phone] ALT [Catalytic activity/Vol] 32 7-38 U/L Normal 1 05-20-2018 [facility] (27609) Comment: Performed By: #### DHEAS, TD, PROG, E2 #### [facility] [place] [phone] #### EST #### [facility] [address] [place] [address] [phone] AST [Catalytic activity/Vol] 23 13-35 U/L Normal 1 05-20-2018 [facility] (86937) Comment: Performed By: #### DHEAS, TD, PROG, E2 #### [facility] [address] [place] [phone] #### EST #### [facility] [address] [place], [place] [address] [phone] Bilirubin [Mass/Vol] 0.3 0.2-1.3 mg/dL Normal 9 [facility] (99258) Comment: Performed By: #### DHEAS, TD, PROG, E2 #### [facility] [address] [place] [phone] #### EST #### [facility] [address] [place] [address] [phone] Bilirubin,Conjugated <0.2 <0.2 Normal 9 [facility] (25591) Comment: Performed By: #### DHEAS, TD, PROG, E2 #### [facility] [place] [phone] #### EST #### [facility] [address] [place] [address] [phone] Protein [Mass/Vol] 7.6 6.3-8.0 g/dL Normal 03-20-2019 [facility] (17611) Comment: Performed By: #### DHEAS, TD, PROG, E2 #### [facility] [address] [place] [address] #### EST #### [facility] [address] [place] [address] [phone] cnov on 2019-03-20 CNOV Office Visit (FAMPWS) Normal 03-20- 19 [place] [facility] JAZLYN GARZON ([id number]) 1965 [place] Date Time Provider Department (99935) 03/20/19 8:00 AM HUGO NAVA During your visit today, we recorded the following informati on about you: Pulse Respiration Blood pressure 88/minute 16/minute 124/82 Sudha Pink CYLINDER DYER 03/20/2019 8:34 AM Signed Thought was going to have twice a week hormone p atch at pharmacy and when got there was the once per week patch. 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 Dizziness. Hugo Nava [...] physician. She would need to see an archeology faculty member/salesperson floor coverings to further evaluate these issues and perhaps a transition rn. She has polycythemia likely related to her [...] stroke - Colon Cancer Father age 64 [place] - Diabetes Father Type 2 - Hypertension Father - Coronary Artery Disease Father Hx of [place] - Thyroid Sister hx of parathyroid disease/ [...] [R23.2] Orthostatic hypotension [I95.1] Order(s):CONSULT TO ALLERGY/IMMUNOLOGY [9006] Order #: [id number]: 1 CBC + DIFF [SQCBCDIF] Order #: [id number] FUTURE HEPATIC FUNCTION PNL [SQHFP] Order #: [id number] FUTURE TRYPTASE BLOOD [SQTRYPT] Order #: [id number] FUTURE N-METHYLHISTAMINE,UR [SQMHISTA] Order #: [id number] Prescriptions as of 03/20/2019 Sig: SYNTHROID 125 [...] 08/25/2018 More... Visit Notes: >> Sudha Pink CYLINDER DYER Mon Mar 20, 2019 8:31 AM Status: Signed Thought was going to have twice a week hormone patch at [facility] and when got there was the once per week patch. Over the weekend with cramping in lower body. Dizziness. Encounter Status:Closed by HUGO NAVA MD on 03/20/19 cbc and differential on 2019-03-20 Abs Baso 0.08 <0.11 k/uL Normal 03-20-2019 [facility] (95951) Comment: Performed By: #### DHEAS, TD, PROG, E2 #### [facility] [address] [place], [place] [address] #### EST #### [employer] [facility] [address] [place] [address] [phone] Abs [place] 1.03 <0.87 k/uL High 03-20-2019 [facility] (09171) Comment: Performed By: #### DHEAS, TD, PROG, E2 #### [facility] [address] [place] [phone] #### EST #### [facility] [address] [place] [address] [phone] Abs Neut 5.98 1.45-7.50 k/uL Normal 03-20-2019 [facility] (87714) Comment: Performed By: #### DHEAS, TD, PROG, E2 #### [place] [address] [place] [phone] #### EST #### [facility] [address] [place] [address] [phone] Absolute nRBC <0.01 <0.01 Normal 03-20-2019 [facility] (12107) Comment: Performed By: #### DHEAS, TD, PROG, E2 #### [place] [phone] #### EST #### [facility] [address] [place] [address] [phone] Basophils/100 WBC (Bld) 0.7 % Normal 2018 [facility] (58688) Comment: Performed By: #### DHEAS, TD, PROG, E2 #### [place] [address] [place] [phone] #### EST #### [facility] [address] [place] [address] [phone] DTYPE Auto Diff Normal 03-20-2019 [facility] (82100) Comment: Performed By: #### DHEAS, TD, PROG, E2 #### [place] [phone] #### EST #### [facility] [address] [place] [address] [phone] Eosinophils (Bld) [#/Vol] 0.28 <0.46 k/uL Normal 02-25 [facility] (50502) Comment: Performed By: #### DHEAS, TD, PROG, E2 #### [facility] [address] [place] [phone] #### EST #### [facility] [address] [place] [address] [phone] Eosinophils/100 WBC (Bld) 2.5 % Normal 02-25 [facility] (63338) Comment: Performed By: #### DHEAS, TD, PROG, E2 #### [facility] [address] [place] [phone] #### EST #### [facility] [address] [place] [address] [phone] Erythrocyte distribution 12.3 11.5-15.0 % Normal 03-20 [facility] width (RBC) [Ratio] [place] (42403) Comment: Performed By: #### DHEAS, TD, PROG, E2 #### [facility] [address] [place] [phone] #### EST #### [facility] [address] [place] [address] [phone] Hematocrit (Bld) [Volume 48.8 36.0-46.0 % High 03-20 [facility]] [place] (81751) Comment: Performed By: #### DHEAS, TD, PROG, E2 #### [facility] [address] [place] [phone] #### EST #### [facility] [address] [place] [address] [phone] Hemoglobin (Bld) 15.9 11.5-15.5 g/dL High 03-20-2019 [facility] [Mass/Vol] [place] (83184) Comment: Performed By: #### DHEAS, TD, PROG, E2 #### [facility] [address] [place] [phone] #### EST #### [facility] [address] [place] [address] [phone] Lymphocytes (Bld) [#/Vol] 4.03 1.00-4.00 k/uL High 02-25 [facility] (53963) Comment: Performed By: #### DHEAS, TD, PROG, E2 #### [place] [phone] #### EST #### [facility] [address] [place] [address] [phone] Lymphocytes/100 WBC (Bld) 35.4 % Normal 02-25 [facility] (02395) Comment: Performed By: #### DHEAS, TD, PROG, E2 #### [place] [phone] #### EST #### [facility] [address] [place] [address] [phone] MCH (RBC) [Entitic mass] 32.8 26.0-34.0 pG Normal 03-20 [facility] (23056) Comment: Performed By: #### DHEAS, TD, PROG, E2 #### [place] [phone] #### EST #### [facility] [address] [place] [address] [phone] MCHC (RBC) [Mass/Vol] 32.6 30.5-36.0 g/dL Normal 03-20-20 [facility] (57485) Comment: Performed By: #### DHEAS, TD, PROG, E2 #### [place] [phone] #### EST #### [facility] [address] [place] [address] [phone] MCV (RBC) [Entitic vol] 100.6 80.0-100.0 fL High 03-20 [facility] (38037) Comment: Performed By: #### DHEAS, TD, PROG, E2 #### [facility] [address] [place] [phone] #### EST #### [facility] [address] [place] [address] [phone] Monocytes/100 WBC (Bld) 9.0 % Normal 2018 [facility] (41362) Comment: Performed By: #### DHEAS, TD, PROG, E2 #### [facility] [address] [place] [phone] #### EST #### [facility] [address] [place] [address] [phone] Neutrophils/100 WBC (Bld) 52.4 % Normal 02-25 [facility] (16720) Comment: Performed By: #### DHEAS, TD, PROG, E2 #### [facility] [address] [place] [phone] #### EST #### [facility] [address] [place] [address] [phone] NRBCs 0.0 0 /100 WBC Normal 03-20-2019 [facility] (13106) Comment: Performed By: #### DHEAS, TD, PROG, E2 #### [facility] [address] [place] [phone] #### EST #### [facility] [address] [place] [address] [phone] Platelet mean volume 10.7 9.0-12.7 fL Normal 9 [facility] (d) [Entitic vol] [place] (73477) Comment: Performed By: #### DHEAS, TD, PROG, E2 #### [facility] [place] [phone] #### EST #### [facility] [address] [place] [address] [phone] Platelets (Bld) [#/Vol] 293 150-400 k/uL Normal 2018 [facility] (43086) Comment: Performed By: #### DHEAS, TD, PROG, E2 #### [facility] [address] [place] [phone] #### EST #### [facility] [address] [place] [address] [phone] RBC (Bld) [#/Vol] 4.85 3.90-5.20 m/uL Normal 03-20-2019 [facility] [place] [facility] (02891) Comment: Performed By: #### DHEAS, TD, PROG, E2 #### [facility] [address] [place] [phone] #### EST #### [facility] [address] [place] [address] [phone] WBC (Bld) [#/Vol] 11.40 3.70-11.00 k/uL High 03-20-2019 [facility] (64831) Comment: Performed By: #### DHEAS, TD, PROG, E2 #### [facility] [address] [place] [phone] #### EST #### [facility] [address] [place] [address] [phone] progress on 2019-02 PROGRESS HNO ID: [id number] Normal 03-17-2019 [facility] Author: Hugo Dixon ([id number]) Service: ? Author Type: Physician Type: Progress [...] stroke - Colon Cancer Father age 64 [place] - Diabetes Father Type 2 - Hypertension Father - Coronary Artery Disease Father Hx of [place] - Thyroid Sister hx of parathyroid disease/ [...] CNOV Office Visit (FAMPWS) Normal 03-17-20 19 [place] JAZLYN Jones ([id number]) 1965 [place] Date Time Provider Department (99596) 03/17/19 11:20 AM HUGO NAVA During your [...] stroke - Colon Cancer Father age 64 [place] - Diabetes Father Type 2 - Hypertension Father - Coronary Artery Disease Father Hx of [place] - Thyroid Sister hx of parathyroid disease/ [...] 03/17/19 progress on 2019-02 PROGRESS HNO ID: [id number] Normal 03-08-2019 [facility] Author: Hugo Dixon ([id number]) Service: ? Author Type: Physician Type: Progress [...] stroke - Colon Cancer Father age 64 [place] - Diabetes Father Type 2 - Hypertension Father - Coronary Artery Disease Father Hx of [place] - Thyroid Sister hx of parathyroid disease/ [...] 2019-03-08 CNOV Office Visit (FAMPWS) Normal 03-08-[address] [place] [address] JAZLYN Jones ([id number]) 1965 [facility] Date Time Provider Department ([id number]) 03/08/19 11:20 AM HUGO NAVAWS During your [...] stroke - Colon Cancer Father age 64 [place] - Diabetes Father Type 2 - Hypertension Father - Coronary Artery Disease Father Hx of [place] - Thyroid Sister hx of parathyroid disease/ [...] TSH Qn 1.920 0.400-5.500 uU/mL Normal 02-16-2019 [facility] ([id number]) Comment: Performed By: #### TSH #### [facility] [address] [place], [place] [address] urea nitrogen on 12-12-13 Urea nitrogen [Mass/Vol] 15 6 - 23 mg/dL Normal 12-07 [facility] (00 000) Comment: Performed By: #### ALT #### [facility] [address] [place] [address] sedimentation rate, erythrocyte on 2018-12-07 SEDIMENTATION RATE, 22 0 - 30 mm/h Normal 12-07-2018 [facility] ( [address]50) Comment: Performed By: #### ESRWS ### # [facility] [address] [place] [address] follow up (rheumatology) on 2018-12-07 Follow Up [...] for 4 years. Tried to apply for [employer]) Review of Systems Constitutional: feeling tired. Cardiovascular: [...] (V19.4) (Z82. 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 not exercise (V69.0) (Z72.3) Lack of adequate sleep (V69.4) (Z72.820) Lives in [place] No alcohol use No caffeine use No [...] on Vitals Vital Signs Recorded: 07Dec2018 07:55AM Uuqhxrpqnvu24.9 F Heart Rate78 Ixdonyxc120 Xqfzqhowo97 Zycuat157 lb BMI Dukxukagty42.83 BSA Calculated1.9 O2 Wndxxksjxq25 Physical Exam Constitutional General appearance: Alert and [...] exposure to cigarette smoke.; Status:Complete; D one: [id number] 08:07AM Ordered; For:BMI 33.0-33.9,adult; Ordered By:Che Benites; Ophthalmology Follow-Up Outpatient Follow-up Status: Hold Fo r - Scheduling Requested for: [id number] Ordered Stat;For: PMH: Long- term use of [...] se, Serum; Specimen Source:Blood (BLD); Status:Active; Requested for:30Atw9256; Perform:Lab Services - Lab T o Draw (Blood Test); Due:07Jul2019;Ordered; For:Systemic lupus erythematosus with other organ involvement; Ordered By:Latasha Benites; Anti-dsDNA (Double Stranded) Antibodies; Specimen Source:Blo od (BLD); Status:Active; Requested for:[id number]; Perform:Lab Services - Lab T o Draw (Blood Test); Due:07Jul2019;Ordered; For:Systemic lupus erythematosus with other organ involvement; Ordered By:Latasha Benites; AST; Specimen Source:Blood (BLD); Status:Active; Requested f or:[id number]; Perform:Lab Services - Lab T o Draw (Blood Test); Due:07Jul2019;Ordered; For:Systemic lupus erythematosus with other organ involvement; Ordered By:Latasha Benites; Blood Urea Nitrogen, Serum; Specimen Source:Blood (BLD); Status:Active; Requested for:[id number]; Perform:Lab Services - Lab T o Draw (Blood Test); Due:07Jul2019;Ordered; For:Systemic lupus erythematosus with other organ involvement; Ordered By:Latasha Benites; C Reactive Protein, Serum; S pecimen Source:Blood (BLD); Status:Active; Requested for:[id number]; Perform:Lab Services - Lab T o Draw (Blood Test); Due:07Jul2019;Ordered; For:Systemic lupus erythematosus with other organ involvement; Ordered By:Latasha Benites; C3 Complement, Serum; Specimen Source:Blood (BLD); Status: Active; Requested for:[id number]; Perform:Lab Services - Lab T o Draw (Blood Test); Due:07Jul2019;Ordered; For:Systemic lupus erythematosus with other organ involvement; Ordered By:Latasha Benites; C4 Complement, Serum; Specimen Source:Blood (BLD); Status: Active; Requested for:[id number]; Perform:Lab Services - Lab T o Draw (Blood Test); Due:07Jul2019;Ordered; For:Systemic lupus erythematosus with other organ involvement; Ordered By:Latasha Benites; Complete Blood Count + Diffe rential; Specimen Source:Blood (BLD); Status:Active; Requested for:[id number]; Perform:Lab Services - Lab T o Draw (Blood Test); Due:07Jul2019;Ordered; For:Systemic lupus erythematosus with other organ involvement; Ordered By:Latasha Benites; Creatinine, Serum; Specimen Source:Blood (BLD); Status:Activ e; Requested for:[id number]; Perform:Lab Services - Lab T o Draw (Blood Test); Due:07Jul2019;Ordered; For:Systemic lupus erythematosus with other organ involvement; Ordered By:Latasha Benites; Sedimentation Rate, Erythrocyte; Specimen Source:Blood (BLD); Status:Active; Requested for:[id number]; Perform:Lab Services - Lab T o Draw [...] Creatinine [Mass/Vol] >60 >60 Normal 12-08-19 19 [facility] (02142) Comment: Performed By: #### ALT #### [facility] [address] [place] [address] Result Comment: CALCULATIONS OF ESTIMATED GFR ARE PERFORMED USING THE MDRD STUDY EQUATIO N FOR THE IDMS-TRACEABLE CREATININE ME THODS. CLIN CHEM 2007;53:766-72 Creatinine [Mass/Vol] 0.84 0.50 - 1.05 mg/dL Normal 2018 [facility] (00 000) Comment: Performed By: #### ALT #### [facility] [address] [place] [address] cbc and differential on 2018-12-07 % AUTOMATED IMMATURE GRAN 0.4 0.0 - 0.9 % Normal 11-24 [facility] (00 000) Comment: Result Comment: Percent diff erential counts (%) should be interpreted in the context of the absolute cell counts (cells/L). Performed By: #### ESRWS ### # [facility] [address] [place] [address] Basophils (Bld) 0.06 0.00 - 0.10 x10E9/L Normal 12-07-2018 [facility] [#/Vol] Center (00 000) Comment: Performed By: #### ESRWS ### # [facility] [address] [place] [address] Basophils/100 WBC (Bld) 0.5 0.0 - 2.0 % Normal 2018 [facility] (41432) Comment: Performed By: #### ESRWS ### # [facility] [address] [place] [address] Eosinophils (Bld) 0.24 0.00 - 0.70 x10E9/L Normal 12-07-2018 [facility] [#/Vol] Center (00 000) Comment: Performed By: #### ESRWS ### # [facility] [address] [place] [address] Eosinophils/100 WBC (Bld) 1.9 0.0 - 6.0 % Normal 11-24 [facility] (00 000) Comment: Performed By: #### ESRWS ### # [facility] [address] [place] [address] Erythrocyte distribution 12.3 11.5 - 14.5 % Normal [facility] width (RBC) [Ratio] Center (23270) Comment: Performed By: #### ESRWS ### # [facility] [address] [place] [address] Hematocrit (Bld) [Volume 51.2 36.0 - 46.0 % High [facility]] Center (00 000) Comment: Performed By: #### ESRWS ### # [facility] [address] [place] [address] Hemoglobin (Bld) 16.4 12.0 - 16.0 g/dL High 12-07-2018 [facility] [Mass/Vol] [place] (0 0000) Comment: Performed By: #### ESRWS ### # [facility] [address] [place] [address] Lymphocytes (Bld) 4.92 1.20 - 4.80 x10E9/L High 12-07-2018 [facility] [#/Vol] [place] (00 000) Comment: Performed By: #### ESRWS ### # [facility] [address] [place] [address] Lymphocytes/100 WBC (Bld) 39.5 13.0 - 44.0 % Normal [facility] (00 000) Comment: Performed By: #### ESRWS ### # [facility] [address] [place] [address] MCHC (RBC) [Mass/Vol] 32.0 32.0 - 36.0 g/dL Normal 2018 [facility] (00 000) Comment: Performed By: #### ESRWS ### # [facility] [address] [place] [address] MCV (RBC) [Entitic vol] 100 80 - 100 fL Normal 2018 [facility] (56343) Comment: Performed By: #### ESRWS ### # [facility] [address] [place] [address] Monocytes (Bld) 1.09 0.10 - 1.00 x10E9/L High 12-07-2018 [facility] [#/Vol] [place] (00 000) Comment: Performed By: #### ESRWS ### # [facility] [address] [place] [address] Monocytes/100 WBC (Bld) 8.8 2.0 - 10.0 % Normal 12-07 [facility] (00 000) Comment: Performed By: #### ESRWS ### # [facility] [address] [place] [address] Neutrophils (Bld) 6.08 1.20 - 7.70 x10E9/L Normal 12-07-2018 [facility] [#/Vol] Center (00 000) Comment: Performed By: #### ESRWS ### # [facility] [address] [place] [address] Neutrophils/100 WBC (Bld) 48.9 40.0 - 80.0 % Normal [facility] (00 000) Comment: Performed By: #### ESRWS ### # [facility] [address] [place] [address] Nucleated RBC/100 WBC 0.0 0.0-0.0 /100 WBC Normal 12-08-19 [facility] (Bld) [Ratio] Center (40963) Comment: Performed By: #### ESRWS ### # [facility] [address] [place] [address] Platelets (Bld) [#/Vol] 287 150 - 450 x10E9/L Normal 2018 [facility] (00 000) Comment: Performed By: #### ESRWS ### # [facility] [address] [place] [address] RBC (Bld) [#/Vol] 5.13 4.00 - 5.20 x10E12/L Normal 12-07-2018 [facility] (00 000) Comment: Performed By: #### ESRWS ### # [facility] [address] [place] [address] WBC (Bld) [#/Vol] 12.4 4.4 - 11.3 x10E9/L High 12-07-2018 [facility] (32064) Comment: Performed By: #### ESRWS ### # [facility] [address] [place] [address] c4 complement on 12-12-13 C4 COMPLEMENT 28 10 - 50 mg/dL Normal 12-07-2018 [facility] (46619) Comment: Performed By: #### ESRWS ### # [facility] [address] [place] [address] c3 complement on 12-12-13 C3 COMPLEMENT 147 87 - 200 mg/dL Normal 12-07-2018 [facility] (64890) Comment: Performed By: #### ESRWS ### # [facility] [address] [place] [address] c-reactive protein on 2018-12-07 CRP [Mass/Vol] 0.14 mg/dL Normal 12-07-2018 [facility] (09719) Comment: Result Comment: REF VALUE < 1.00 Performed By: #### ESRWS ### # [facility] [address] [place] [address] ast on 2018-12-07 AST [Catalytic activity/Vol] 18 9 - 39 U/L Normal 0 12-07-2018 [facility] (00 000) Comment: Performed By: #### ESRWS ### # [facility] [address] [place] [address] anti-dna [ds] on 12-12-13 ANTI-DNA [DS] 1.0 IU/mL Normal 12-07-2018 [facility] (43499) Comment: Result Comment: REF VALUES NEGATIVE: <= 4 IU/ML EQUIVOCAL: 5- 9 IU/ML POSITIVE: >=10 IU/ML Performed By: #### ALT #### [facility] [address] [place] [address] alt on 2018-12-07 ALT [Catalytic activity/Vol] 28 7 - 45 U/L Normal 0 12-07-2018 [facility] (00 000) Comment: Result Comment: Patients alex ated with Sulfasalazine may generate falsely decreased results fo r ALT. Performed By: #### ESRWS ### # [facility] [address] [place] [address] cnpn on 2018-12-06 CNPN Telephone (CDLE) Normal 12-06-2018 [place] JAZLYN Moreira ([id number]) 1965 F ([id number]) Date Time Provider Department 12/06/18 GRAY PENA) CDLBME During your visit today, we recorded the following informati on about you: Gray Pena RN, RN 12/06/2018 1:32 PM Signed Patient phoned for reminder states daughter in labor a nd will not be able to make. 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 Edited By : Jolie Razo Referred By : WAYLON GUTIERREZ Acquired by : FRANK BOYCE cnpn on 2018-11-08 CNPN Telephone (CDLBME) Normal 11-08-2018 [facility] JAZLYN GARZON ([id number]) 1965 F ([id number]) Date Time Provider Department 11/08/18 ATIYA SERRATO [...] Fully Assessed Reason for Visit: Reminder Call [6576] Prescriptions as of 11/08/2018 Sig: BLOOD SUGAR [...] ATIYA SERRATO on 11/08/18 dhirajn on 2018-11-02 [facility] Tele[facility] (CDLBME) Normal 11-02-2018 [place] JAZLYN Moreira ([id number]) 1965 F (96760) Date Time Provider Department 11/02/18 ATIYA SERRATO [...] Fully Assessed Reason for Visit: Reminder Call [1246] Prescriptions as of 11/02/2018 Sig: BLOOD SUGAR [...] 2018 ALDOSTERONE 3.5 0.0-30.0 ng/dL Normal 08-10-2018 [facility] [place] (18717) Comment: Result Comment: This test wa s developed and its performance characteristics determined by [facility]. It deleon s not been cleared or approved by the Food and Drug Adminis tration. Performed By: #### ESRWS ### # [facility] [address] [place] [address] acth on 2018-08-05 ACTH 9 0 - 46 pg/mL Normal 08-05-2018 [facility] (15208) Comment: Performed By: #### ESRWS ### # [facility] [address] [place] [address] urea nitrogen on 12-08-10 Urea nitrogen [Mass/Vol] 10 6 - 23 mg/dL Normal 08-04 [facility] (00 000) Comment: Performed By: #### UREA #### [facility] [address] [place] [address] sedimentation rate, erythrocyte on 2018-08-04 SEDIMENTATION RATE, 23 0 - 30 mm/h Normal 08-04-2018 [facility] ( 37096) Comment: Performed By: #### ESRWS ### # [facility] [address] [place] [address] creatinine on 08-04 Creatinine [Mass/Vol] >60 >60 Normal 08-05-19 [facility] (82727) Comment: Performed By: #### CREAT ### # [facility] [address] [place] [address] Result Comment: CALCULATIONS OF ESTIMATED GFR ARE PERFORMED USING THE MDRD STUDY EQUATIO N FOR THE IDMS-TRACEABLE CREATININE ME THODS. CLIN CHEM 2007;53:766-72 Creatinine [Mass/Vol] 0.75 0.50 - 1.05 mg/dL Normal 2018 [facility] (00 000) Comment: Performed By: #### CREAT ### # [facility] [address] [place] [address] cortisol,unspecified on 2018-08-04 CORTISOL,UNSPECIFIED 17.1 2.5 - 20.0 ug/dL Normal 08-05-19 19 [facility] (00 000) Comment: Performed By: #### CORUN ### # [facility] [address] [place] [address] cbc and differential on 2018-08-04 % AUTOMATED IMMATURE GRAN 0.6 0.0 - 0.9 % Normal 07-25 [facility] (00 000) Comment: Result Comment: Percent diff erential counts (%) should be interpreted in the context of the absolute cell counts (cells/L). Performed By: #### CBCDF ### # [facility] [address] [place] [address] Basophils (Bld) 0.09 0.00 - 0.10 x10E9/L Normal 08-04-2018 [facility] [#/Vol] [place] (00 000) Comment: Performed By: #### CBCDF ### # [facility] [address] [place] [address] Basophils/100 WBC (Bld) 0.8 0.0 - 2.0 % Normal 2018 [facility] (65539) Comment: Performed By: #### CBCDF ### # [facility] [address] [place] [address] Eosinophils (Bld) 0.27 0.00 - 0.70 x10E9/L Normal 08-04-2018 [facility] [#/Vol] [place] (00 000) Comment: Performed By: #### CBCDF ### # [facility] [address] [place] [address] Eosinophils/100 WBC (Bld) 2.3 0.0 - 6.0 % Normal 07-25 [facility] (00 000) Comment: Performed By: #### CBCDF ### # [facility] [address] [place] [address] Erythrocyte distribution 12.7 11.5 - 14.5 % Normal [facility] width (RBC) [Ratio] Center (80591) Comment: Performed By: #### CBCDF ### # [facility] [address] [place] [address] Hematocrit (Bld) [Volume 48.5 36.0 - 46.0 % High [facility]] Center (00 000) Comment: Performed By: #### CBCDF ### # [facility] [address] [place] [address] Hemoglobin (Bld) 15.6 12.0 - 16.0 g/dL Normal 08-04-2018 [facility] [Mass/Vol] [place] (0 0000) Comment: Performed By: #### CBCDF ### # [facility] [address] [place] [address] Lymphocytes (Bld) 4.04 1.20 - 4.80 x10E9/L Normal 08-04-2018 [facility] [#/Vol] [place] (00 000) Comment: Performed By: #### CBCDF ### # [facility] [address] [place] [address] Lymphocytes/100 WBC (Bld) 34.9 13.0 - 44.0 % Normal [facility] (00 000) Comment: Performed By: #### CBCDF ### # [facility] [address] [place] [address] MCHC (RBC) [Mass/Vol] 32.2 32.0 - 36.0 g/dL Normal 2018 [facility] (00 000) Comment: Performed By: #### CBCDF ### # [facility] [address] [place] [address] MCV (RBC) [Entitic vol] 100 80 - 100 fL Normal 2018 [facility] (80928) Comment: Performed By: #### CBCDF ### # [facility] [address] [place] [address] Monocytes (Bld) 0.99 0.10 - 1.00 x10E9/L Normal 08-04-2018 [facility] [#/Vol] [facility] (00 000) Comment: Performed By: #### CBCDF ### # [facility] [address] [place] [address] Monocytes/100 WBC (Bld) 8.6 2.0 - 10.0 % Normal 08-04 [facility] (00 000) Comment: Performed By: #### CBCDF ### # [facility] [address] [place] [address] Neutrophils (Bld) 6.11 1.20 - 7.70 x10E9/L Normal 08-04-2018 [facility] [#/Vol] Center (00 000) Comment: Performed By: #### CBCDF ### # [facility] [address] [place] [address] Neutrophils/100 WBC (Bld) 52.8 40.0 - 80.0 % Normal [facility] (00 000) Comment: Performed By: #### CBCDF ### # [facility] [address] [place] [address] Nucleated RBC/100 WBC 0.1 0.0-0.0 /100 WBC Normal 08-05-[address] [facility] (Bld) [Ratio] Center (37174) Comment: Performed By: #### CBCDF ### # [facility] [address] [place] [address] Platelets (Bld) [#/Vol] 301 150 - 450 x10E9/L Normal 2018 [facility] (00 000) Comment: Performed By: #### CBCDF ### # [facility] [address] [place] [address] RBC (Bld) [#/Vol] 4.85 4.00 - 5.20 x10E12/L Normal 08-04-2018 [facility] (00 000) Comment: Performed By: #### CBCDF ### # [facility] [address] [place] [address] WBC (Bld) [#/Vol] 11.6 4.4 - 11.3 x10E9/L High 08-04-2018 [facility] (84937) Comment: Performed By: #### CBCDF ### # [facility] [address] [place] [address] c4 complement on 12-08-10 C4 COMPLEMENT 26 10 - 50 mg/dL Normal 08-04-2018 [facility] (23831) Comment: Performed By: #### C4 #### [facility] [address] [place] [address] c3 complement on 12-08-10 C3 COMPLEMENT 157 87 - 200 mg/dL Normal 08-04-2018 [facility] (06710) Comment: Performed By: #### C3 #### [facility] [address] [place] [address] c-reactive protein on 2018-08-04 CRP [Mass/Vol] 0.18 mg/dL Normal 08-04-2018 [facility] (74569) Comment: Result Comment: REF VALUE < 1.00 Performed By: #### CRP #### [facility] [address] [place] [address] ast on 2018-08-04 AST [Catalytic activity/Vol] 19 9 - 39 U/L Normal 0 08-04-2018 [facility] (00 000) Comment: Performed By: #### AST #### [facility] [address] [place] [address] loretta + adarsh panel on 2018-08-04 LORETTA WITH REFLEX TO ADARSH NEGATIVE NEGATIVE Normal 019 [facility] (00 000) Comment: Performed By: #### ESRWS ### # [facility] [address] [place] [address] ANTI-CENTROMERE <0.2 Normal 08-04-2018 [facility] (99109) Comment: Result Comment: REF VALUES < 1.0 = NEGATIVE >=1.0 = POSITIVE Performed By: #### ESRWS ### # [facility] [address] [place] [address] ANTI-CHROMATIN <0.2 Normal 08-04-2018 [facility] (42011) Comment: Result Comment: REF VALUES < 1.0 = NEGATIVE >=1.0 = POSITIVE Performed By: #### ESRWS ### # [facility] [address] [place] [address] ANTI-DNA [DS] 1.0 IU/mL Normal 08-04-2018 [facility] (94537) Comment: Result Comment: REF VALUES NEGATIVE: <= 4 IU/ML EQUIVOCAL: 5- 9 IU/ML POSITIVE: >=10 IU/ML Performed By: #### ESRWS ### # [facility] [address] [place] [address] ANTI-MANOHAR-1 <0.2 Normal 08-04-2018 [facility] (07002) Comment: Result Comment: REF VALUES < 1.0 = NEGATIVE >=1.0 = POSITIVE Performed By: #### ESRWS ### # [facility] [address] [place] [address] ANTI-RIBOSOMAL P <0.2 Normal 08-04-2018 [facility] (86927) Comment: Result Comment: REF VALUES < 1.0 = NEGATIVE >=1.0 = POSITIVE Performed By: #### ESRWS ### # [facility] [address] [place] [address] ANTI-METAL ROOFING MECHANIC <0.2 Normal 08-04-2018 [facility] (00083) Comment: Result Comment: REF VALUES < 1.0 = NEGATIVE >=1.0 = POSITIVE Performed By: #### ESRWS ### # [facility] [address] [place] [address] ANTI-SCL-70 <0.2 Normal 08-04-2018 [facility] [place] (85335) Comment: Result Comment: REF VALUES < 1.0 = NEGATIVE >=1.0 = POSITIVE Performed By: #### ESRWS ### # [facility] [address] [place] [address] ANTI-SM <0.2 Normal 08-04-2018 [facility] ([id number]) Comment: Result Comment: REF VALUES < 1.0 = NEGATIVE >=1.0 = POSITIVE Performed By: #### ESRWS ### # [facility] [address] [place] [address] ANTI-SM/METAL ROOFING MECHANIC <0.2 Normal 08-04-2018 [facility], [place], operated by [facility] ([id number]) Comment: Result Comment: REF VALUES < 1.0 = NEGATIVE >=1.0 = POSITIVE Performed By: #### ESRWS ### # [facility] [address] [place] [address] ANTI-SSA <0.2 Normal 08-04-2018 [facility] ([id number]) Comment: Result Comment: REF VALUES < 1.0 = NEGATIVE >=1.0 = POSITIVE Performed By: #### ESRWS ### # [facility] [id number] [place] [address] ANTI-SSB <0.2 Normal 08-04-2018 [facility] ([id number]) Comment: Result Comment: REF VALUES < 1.0 = NEGATIVE >=1.0 = POSITIVE Performed By: #### ESRWS ### # [facility] [id number] [place] [address] alt on 2018-08-04 ALT [Catalytic activity/Vol] 34 7 - 45 U/L Normal 0 08-04-2018 [facility] (00 000) Comment: Result Comment: Patients alex ated with Sulfasalazine may generate falsely decreased results fo r ALT. Performed By: #### ALT #### [facility] [id number] [place] [address] follow up (rheumatology) on 2018-08-03 Follow Up Chief Complaint Normal 08-03-2018 [facility] (Rheumatology) (0000 0) SLE follow-up History of Present Illness PCP thinks she has POTS--has dizziness, has symptoms after getting out a hot shower. Can't get into a biomedical specialist until November Continues to have med change [...] (V19.4) (Z82. 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 not exercise (V69.0) (Z72.3) Lack of adequate sleep (V69.4) (Z72.820) Lives in [place] No alcohol use No caffeine use No [...] Aerosol Soluti on Vitals Vital Signs Recorded: 91Pvi9888 07:39AM Xdgnuptdadd09.1 F, Oral Heart Rate85 Dkjzcyvp302, LUE, Sitting Kepmfcksv33, LUE, Sitting Blood Pressure Cuff SizeAdult Bacbvn950 lb BMI Meypwfupnn83.43 BSA Calculated1.93 O2 Ztmfdzhtgw86 Physical Exam Constitutional General appearance: Alert and [...] - Lab T o Draw (Blood Test); Due:47Jwh0785;Ordered; For:Systemic lupus erythematosus with other organ involvement; Ordered By:Latasha Benites; Provider Impressions Patient's primary care provi chay manages all preventive care testing, wellness exams, and vaccinations. Age appropriate recommendations made The patient's labs, radiolog y images and reports, and other tests since previous appointment were obtained, reviewed, and summarized as applicable from the physician portal, electronic medical records s tenh and/or outside source s. Pertinent positive and [...] on 2018-06-27 MELINDA Telephone (AGGYNBMG) Normal 9 [facility] FLORAJAZLYN ([id number]) 1965 F Medical Date Time Provider Department Center 06/27/18 KIMBERLY BOLTON ([id number]) During your visit today, we recorded the [...] progress on 2018-05 Protein mass HNO ID: [id number] Normal 06-20-19 19 [facility] Author: Kimberly Bolton General Service: (none) [facility] Author Type: Physician Center Type: Progress Notes ([id number]) Filed: 06/20/2018 10:20 AM Note Text: Jazlyn [...] - Rectocele 05/13/2009 - SVT (supraventricular tachycardia) ([facility]) - Syncope 05/14/2013 -Reported that [...] stroke - Colon Cancer Father age 64 [place] - Diabetes Father Type 2 - Hypertension Father - Coronary Artery Disease Father Hx of [place] - Thyroid Sister hx of parathyroid disease/ [...] 6 Occupational History Occupation Employer Comment disabled [employer] Social History Main Topics Smoking status: Current [...] hematuria, nocturia, incontinence. 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, irregular bleedi [...] 2018-06-20 CNOV Office Visit (AGGYNBMG) Normal 2018 [facility] JAZLYN GARZON ([id number]) 1965 F Medical Date Time Provider Department Center 06/20/18 9:30 AM KIMBERLY BOLTON [facility] ([id number]) During your visit today, we recorded the [...] - Rectocele 05/13/2009 - SVT (supraventricular tachycardia) ([facility]) - Syncope 05/14/2013 -Reported that [...] stroke - Colon Cancer Father age 64 [place] - Diabetes Father Type 2 - Hypertension Father - Coronary Artery Disease Father Hx of [place] - Thyroid Sister hx of parathyroid disease/ [...] 6 Occupational History Occupation Employer Comment disabled [employer] Social History Main Topics Smoking status: Current [...] hematuria, nocturia, incontinence. 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, irregular bleedi [...] Hives Date Reviewed: 06/20/2018 Reviewed by: Nayeli ([facility]) Wendie - Fully Assessed Reason for Visit: Discuss Hormones [Other] Reason For Visit History Recorded Primary Visit Diagnosis:Symptomatic menopausal or female c limacteric states [N95.1] Other Visit Diagnoses:Postablative hypothyroidism [E89.0] Estrogen deficiency [E28.39] Order(s):T3 FREE BLD [SQFREET3] Order #: [id number] FUTURE T4 FREE/FREE THYROX [SQFT4] Order #: [id number] FUTURE REVERSE T3 [UOM4TRI] Order #: [id number] FUTURE T3 BLD [SQT3] Order #: [id number] FUTURE T4/THYROXINE BLOOD [SQT4] Order #: [id number] FUTURE COMPOUNDED PRESCRIPTIONPROGESTERONE CREAM APPLY 5 MG AT HS A S DIRECTEDDisp: 150 mgRfl: 3 COMPOUNDED PRESCRIPTIONTESTOSTERONE CREAM APPLY 0.25MG Q AM DIRECTEDDisp: 7.5 mgRfl: 5 DXA-AXIAL SKELETON [[id number]] Order #: [id number] FUTURE Prescriptions as of 06/20/2018 Sig: SYNTHROID [...] of Service: WELLNESS EXAMS NEW 40-64 YRS [51532] Disposition: Return in about 1 year (around 06/20/2019). Follow-up and Disposition History Recorded Encounter Status:Closed by KIMBERLY BOLTON MD on 06/20/18 follow up (rheumatology) on 2018-01-19 Follow Up Chief Complaint Normal 01-19-2018 [employer] (Rheumatology) Lupus follow up (39219) History of Present Illness The patient is [...] (V19.4) (Z82. 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 not exercise (V69.0) (Z72.3) Lack of adequate sleep (V69.4) (Z72.820) Lives in [place] No alcohol use No caffeine use No [...] 17Dec2015 to (Evaluate:16Mar2016) Requested for: ; Last Rx:[id number]; Status: ACTIVE - Renewal Denied, Transmit to [facility] - Awaiting Verification Ordered Rx By: Gray Padilla; D ispense: 30 Days ; #:30 Capsule; Refill: 2;For: PMH: History of muscle pain, PMH: Polyarthralgia; FRANCESCO = N; Transmitted To: [address] Hydroxychloroquine Sulfate 2 00 MG Oral Tablet; take 1 tablet by mouth once daily; Therapy: 22Jan2016 to (Evaluate:02Feb2018) Requested for: ; Last Rx:06Aug2017 Ordered Rx By: Latasha Benites; Dis pense: 30 Days ; #:30 TAB; Refill: 5;For: Systemic lupus erythematosus; FRANCESCO = N; Verified Transmission to [address]; Last Updated By: Shoshana Mann; 08/06/2017 10:00:13 AM ALPRAZolam 1 MG Oral Tablet; TAKE 1 TABLET 3 TIMES DAILY NEEDED; Therapy: 47Jvw4480 to Recorded Dispense: 0 Days ; #: Suffic ient Tablet; Refill: 0; FRANCESCO = N; Record; Last Updated By: Pati Onofre; 11/13/2015 8:34:25 AM Dexamethasone 1 MG Oral Tablet; Therapy: 30Plp7625 to Recorded Dispense: 1 Days ; #:1 TABS; Refill: 0; FRANCESCO = N; Record; Last Updated By: Latasha Benites; 01/16/2018 4:18:27 PM Duavee 0.45-20 MG Oral Tablet; Therapy: 28Jan2017 to Recorded Dispense: 30 Days ; #:30 TAB S; Refill: 0; FRANCESCO = N; Record; Last Updated By: Latasha Benites; 01/16/2018 4:18:27 PM Estradiol 0.025 MG/24HR Transdermal Patch Weekly; Therapy: 97Pif6685 to Recorded Dispense: 28 Days ; #:4 [...] to Recorded Dispense: 25 Days ; #:100 MA SC; Refill: 0; FRANCESCO = N; Record; Last Updated By: Latasha Benites; 01/16/2018 4:18:27 PM FreeStyle Lancets Miscellaneous; Therapy: 01Nov2017 to Recorded Dispense: 25 Days ; #:100 MA SC; Refill: 0; FRANCESCO = N; Record; Last Updated By: Latasha Benites; 01/16/2018 4:18:27 PM FreeStyle Lite Test In Vitro Strip; Therapy: 86Udl2708 to Recorded Dispense: 25 Days ; #:100 ST RP; Refill: 0; FRANCESCO = N; Record; Last Updated By: Latasha Benites; 01/16/2018 4:18:27 PM Gabapentin 100 MG Oral Capsule; Therapy: 19Oct2017 to Recorded Dispense: 30 Days ; #:60 CAP S; Refill: 0; FRANCESCO = N; Record; Last Updated By: Latasha Benites; 01/16/2018 4:18:27 PM Hydrocortisone 20 MG Oral Tablet; Therapy: 70Mww5813 to Recorded Dispense: 30 Days ; #:480 [...] Natural Magnesium 250 MG Oral Tablet; Therapy: 03Tsr0591 to Recorded Dispense: 30 Days ; #:30 [...] Base) MCG/ACT Inhalation Aerosol Soluti on; Therapy: 80Hgp7520 to Recorded Dispense: 17 Days ; #:18 AER S; Refill: 0; FRANCESCO = N; Record; Last Updated By: Latasha Benites; 07/22/2016 12:39:12 PM Vitals Vital Signs Recorded: 19Jan2018 07:47AM Axzxtxqrtho79.5 F, Oral Heart Rate91 Iswyvfei645, LUE, Sitting Icettdlbw53, LUE, Sitting Blood Pressure Cuff SizeAdult Lsznjr041 lb BMI Oytxlbvwlp45.83 BSA Calculated1.9 O2 Rfiidenbwc32 Physical Exam Constitutional General appearance: Alert and [...] 1 TABLET 3 TIMES DAILY NEEDED; Therapy: 85Xae9868 to Recorded Dexamethasone 1 MG Oral Tablet; Therapy: 90Tte0169 to Recorded Duavee 0.45-20 MG Oral Tablet; Therapy: 74Cab3030 to Recorded Estradiol 0.025 MG/24HR Transdermal Patch Weekly; Therapy: 63Qjs9652 to Recorded Ferrous Gluconate 324 (38 Fe) MG Oral Tablet; Therapy: 07Dpm6689 to Recorded FLUoxetine HCl - 10 MG Oral Capsule; Therapy: 40Fcp3137 to Recorded FreeStyle Lancets Miscellaneous; Therapy: 89Fpq5640 to Recorded FreeStyle Lancets Miscellaneous; Therapy: 01Nov2017 to Recorded FreeStyle Lite Test In Vitro Strip; Therapy: 01Nov2017 to Recorded Gabapentin 100 MG Oral Capsule; Therapy: 19Oct2017 to Recorded Gabapentin 300 MG Oral Capsule; TAKE 1 CAPSULE Bedtime; Therapy: 25Fjh0266 to (Evaluate:16Mar2016) Requested for: ; Last Rx:65Cwr6565; Status: ACTIVE - Renewal Denied, Transmit to [...] w/o Patient Name: JAZLYN GARZON Normal 10-12-2017 [facility] [employer] Contrast FIN: Rupinder yserik [id number] MRI Exam Date/Time 10/12/2017 08:18:01 EDT Exam MRI Brain w/o Contrast Ordering Physician MD STU, TAMMY ASTUDILLO Accession Number [id number] CPT4 Codes 10018 () Reason For Exam dizziness Report MRI [...] on 2017-02-15 Dietary management yes Invalid 02-15-2017 [facility] Surgical education, Interpretation Code 7 [facility] guidance, and (96873 ) counseling (procedure) Documentation of Done Invalid 02-15-2017 [facility] Surgical current medications Interpretation Code 02-15-2017 [facility] (procedure) (84213) Fall risk No Invalid 02-15-2017 [facility] Ramila gical assessment Interpretation Code 7 [facility] (82960) Protein mass conc Done Invalid 02-15-2017 [facility] Surgical Interpretation Code 02-15-2017 [facility] (18882) Protein mass conc yes Invalid 02-15-2017 [facility] Surgical Interpretation Code 02-15-2017 [facility] (20870) Smoking cessation yes Invalid 02-15-2017 [facility] Surgical education Interpretation Code 02-15-2017 [facility] (procedure) (32840) Tobacco smoking Never Invalid 02-15-2017 - [facility] Surgical status NHIS Interpretation Code 02-16-20 17 [facility] (70051) Tobacco smoking Current every Invalid 02-15-2017 - [facility] Surgical status SDIS day smoker Interpretation Code 017 Associates (55977) Tobacco use CPHS Current every Invalid 7 - [facility] Surgical day smoker Interpretation Code 7 [facility] (99821) office visit: discuss endo on 2017-01-13 Dietary management yes Invalid 01-13-2017 - [facility] Surgical education, Interpretation Code 7 [facility] guidance, and (95717 ) counseling (procedure) Documentation of Done Invalid 01-13-2017 - [facility] Surgical current medications Interpretation Code 01-13-2017 [facility] (procedure) (65108) Fall risk No Invalid 01-13-2017 - [facility] Ramila gical assessment Interpretation Code 7 [facility] (76263) Protein mass conc Done Invalid 01-13-2017 - [place] Interpretation Code 01-13-2017 [facility] (25795) Protein mass conc yes Invalid 01-13-2017 - [place] Interpretation Code 01-13-2017 [facility] (46023) Smoking cessation yes Invalid 01-13-2017 - [facility] Surgical education Interpretation Code 01-13-2017 [facility] (procedure) (53723) Tobacco smoking Current Invalid 01-13-2017 - [place] status SDIS every day Interpretation Code 01-14-20 17 [facility] smoker (52015) Tobacco smoking Never Invalid 01-13-2017 - [facility] status [facility] Interpretation Code 01-14-20 17 [facility] (19316) Tobacco use CPHS Current Invalid 01-13-2017 - [facility] Surgical every day Interpretation Code 01-13-2017 [facility] smoker (11574) replaced document: midmark ecg observati ons on 2017-01-08 EKG QRS axis 80 deg Invalid 01-08-2017 - [place] Interpretation 01-08-2017 [facility] Code (28090) electrocardiogram Sinus Rhythm Invalid 7 - [facility] interpretation -Nonspecific Interpretation 017 Group (90145) ST depression Code -[place] c. ABNORMAL GE use only - for 417 ms Invalid 01-08-2017 - [facility] import when Interpretation Group (92177) terms are not Code otherwise specified Interpretation Sinus Rhythm Invalid 01-08-2017 - [place] -Nonspecific Interpretation 01-08-[address] depression Code (19133 ) -[place] c. ABNORMAL P Ruby 49 deg Invalid 01-08-2017 - [place] Interpretation 01-08-2017 [facility] Code (19103) P wave axis, 49 deg Invalid 01-08-2017 - [facility] electrocardiogram Interpretation 017 Group (21187) Code OR Interval 130 ms Invalid 01-08-2017 - [place] Interpretation 01-08-2017 [facility] Code (70887) OR interval, 130 ms Invalid 01-08-2017 - [facility] electrocardiogram Interpretation 017 Group (95111) Code Pulse (Heart Rate) 96 BPM /min Invalid 01-08-2017 - [facility] Interpretation 01-08-2017 Grou p (34759) Code QRS axis, 80 deg Invalid 01-08-2017 - [facility] electrocardiogram Interpretation 017 Group (12152) Code QRS Duration 92 ms Invalid 01-08-2017 - [place] Interpretation 01-08-2017 [facility] Code (76136) QRS duration, 92 ms Invalid 01-08-2017 - [place] [facility] electrocardiogram Interpretation 017 Group (54826) Code QT Interval new path ms Invalid 01-08-2017 - [place] Interpretation 01-08-2017 [facility] Code (14756) QT interval, new path ms Invalid 01-08-2017 - [place] electrocardiogram Interpretation 017 Group (75221) Code QTc Silva 417 ms Invalid 01-08-2017 - [place] Interpretation 01-08-2017 [facility] Code (19779) T Ruby 58 deg Invalid 01-08-2017 - [place] Interpretation 01-08-2017 [facility] Code (21544) T wave axis, 58 deg Invalid 01-08-2017 - [facility] electrocardiogram Interpretation 017 Group (83865) Code office visit: rishi wheat 2017-01-08 Dietary management yes Invalid 01-08-2017 - [facility] education, Interpretation Code 7 Group (57175) guidance, and counseling (procedure) Documentation of Done Invalid 01-08-2017 - [facility] current medications Interpretation Code 01-08-2017 Group (43897) (procedure) Fall risk No Invalid 01-08-2017 - [facility] assessment Interpretation Code 7 Group (12672) Smoking cessation yes Invalid 01-08-2017 - [facility] education Interpretation Code 01-08-2017 Group (10437) (procedure) Tobacco use CPHS Current every Invalid 7 - [facility] day smoker Interpretation Code 7 Group (44652) lab report: pap i-g hpv hi risk on 2016-12-19 GE use only - Negative Negative Invalid 12-19-2016 - [place] for [facility] Interpretation Code 2016 [facility] import when (42196) terms are not otherwise specified HPV HC,HGH RISK Negative Negative 12-19-2016 - [place] 12-19-2016 [facility] (49015) office visit: est annual on 2016-12-14 Documentation of Done Invalid 12-14-2016 - [place] current medications Interpretation Code 12-14-2016 [facility] (procedure) (01188) Fall risk No 12-14-2016 - [place] assessment 12-14-2016 [facility] (80772) Hemoglobin.gastroin not done 12-14-2016 - [place] testinal Ql (St) 12-14-2016 [facility] (20250) Protein mass conc Done 12-14-2016 - [place] 12-14-2016 [facility] (22608) Tobacco smoking Current 12-14-2016 - [place] status NHIS every day 12-14-2016 [facility] smoker (99799) Tobacco smoking Never 12-14-2016 - [place] status NHIS 12-14-2016 [facility] (14328) Tobacco use CPHS Current Invalid 12-14-2016 - [place] every day Interpretation Code 12-14-2016 [facility] smoker (28049) replaced document: (p) culture, urine on 2016-11-30 CUUR . 11-30-2016 - [place] [facility] 11-30-2016 Care (894 91) GE use only - for . Invalid Interpretation 11-30-2016 [facility] import Code 11-30-2016 Ca re (84246) when terms are not otherwise specified microbiology: (p) culture, urine on 2016-11-29 GE use only - Urine Invalid 11-29-2016 - [facility] for [facility] CultureCulture Interpretation Code 0 11-29-2016 [facility] import when exhibits no growth. (28610) terms are not otherwise specified office visit: patient concerned about cy st on 2016-11-27 Albumin Ql (U) negative 11-27-2016 - [place] 11-27-2016 [facility] (23030) Appearance Nom (U) cloudy 11-27-2016 - [place] 11-27-2016 [facility] (23128) Bilirubin Ql (U) negative 11-27-2016 - [place] 11-27-2016 [facility] (15452) blood in urine non-hemolyzed Invalid 11-27-2016 [place] (hemoglobin) by trace Interpretation 7 [facility] dipstick Code (47039) Color Nom (U) lt. yellow 11-27-2016 - [place] 11-27-2016 [facility] (74828) Documentation of Done Invalid 11-27-2016 [place] current Interpretation 11-27-2016 [facility] medications Code (26861) (procedure) Fall risk No Invalid 11-27-2016 [facility] assessment Interpretation 11-27-2016 [facility] Code (30602) Glucose Test strip negative 11-27-2016 [place] mass conc (U) 11-27-2016 [facility] (34003) Hemoglobin.gastroi not done Invalid 11-27-2016 [place] ntestinal Ql (St) Interpretation 017 [facility] Code (49958) Ketones mass conc negative 11-27-2016 [place] (U) 11-27-2016 [facility] (56896) Leukocyte esterase negative 11-27-2016 [place] Test strip Ql (U) 11-27-2016 [facility] (83569) Nitrite Ql (U) negative 11-27-2016 - [place] 11-27-2016 [facility] (93254) pH (U) 5.0 [pH] [facility] (69567) Protein mass conc Done 11-27-2016 - [place] 11-27-2016 [facility] (08744) Protein mass conc yes 11-27-2016 - [place] 11-27-2016 [facility] (67205) Smoking cessation yes Invalid 11-27-2016 - [place] education Interpretation 11-27-2016 [facility] (procedure) Code (52996) Specific gravity 1.010 11-27-2016 [place] Refractometry 11-27-2016 [facility] Relative Density (44 691) (U) specific gravity, 1.010 Invalid 11-27-2016 [place] urine Interpretation 11-27-2016 [facility] Code (99500) Tobacco smoking Current every 11-27-2016 - [place] status SDIS day smoker 11-27-2016 [facility] (66052) Tobacco smoking Never Invalid 11-27-2016 - [place] status NHIS Interpretation 11-27-2016 [facility] Code (94432) Tobacco use CPHS Current every Invalid - [place] day smoker Interpretation 11-27-2016 [facility] Code (74597) Urine, bilirubin negative Invalid 11-27-2016 [place] presence Interpretation 11-27-2016 [facility] Code (14031) Urine, glucose negative Invalid 11-27-2016 - [place] presence Interpretation 11-27-2016 [facility] Code (43239) Urine, ketones negative Invalid 11-27-2016 - [place] presence Interpretation 11-27-2016 [facility] Code (61647) Urine, nitrite negative Invalid 11-27-2016 - [place] presence Interpretation 11-27-2016 [facility] Code (83412) Urine, pH 5.0 [pH] Invalid [facility]-27-[facility]-27[facility] Code (88301) Urine, protein negative mg/dL Invalid 11-27-2016 - [place] Interpretation 11-27-2016 [facility] Code (84988) Urobilinogen Test negative 11-27-2016 - [place] strip Ql (U) 11-27-2016 [facility] (98282) office visit: est annual on 2016-11-16 Fall risk assessment No 7 - [facility] Surgical 11-16-2016 Associate s (28393) Protein mass conc Done 11-16-2016 - [facility] Surgical 11-16-2016 Associate s (87524) Tobacco smoking Current every day 2016 - [facility] Surgical status SDIS smoker 11-16-2016 [facility] (82334) Tobacco smoking Never 11-16-2016 - [facility] status SDIS 11-16-2016 [facility] (97168) office visit: mmm o n 2014-08-22 cardiac risk group B 08-22-2014 - [facility] Surgical 08-22-2014 Associate s (40434) Dietary management yes Invalid 08-22-2014 [facility] education, Interpretation 08-22-2014 [facility] guidance, and Code (36320 ) counseling (procedure) General Not enough 08-22-2014 [facility] Patterson rgical cardiovascular information 08-22-2014 As sociates disease 10Y risk (68 501) [#] Touchet.D'Agosti no Protein mass conc yes 08-22-2014 - [facility] Surgical 08-22-2014 Associate s (54636) chart maintenance o n 2013-11-20 Hematocrit (HCT) 42.5 % Invalid 11-20-2013 - [place] Interpretation Code 11-20-2013 [facility] (02350) Hematocrit Volume 42.5 % 11-20-2013 [facility] Surgical Fraction (Bld) 11-20-2013 Asso ciainocencio (11231) Hemoglobin mass 14.5 g/dL 11-20-2013 - [facility] conc (Bld) 11-20-2013 Associat es (03209) Platelets 272 10*3/mm3 Invalid 11-20-2013 - [facility] Interpretation Code 11-20-2013 [facility] (81304) Platelets #/vol 272 10*3/mm3 11-20-2013 - [facility] (Bld) 11-20-2013 [facility] (40194) WBC #/vol (Bld) 10.2 10*9/L 11-20-2013 - [facility] 11-20-2013 Associate [facility] (60624) WBC (Leukocytes) 10.2 10*9/L Invalid 11-20-2013 - [place] Interpretation Code 11-20-2013 [facility] (90369) chart maintenance o n 2013-10-21 Anion gap 7 mmol/L Invalid 10-21-2013 - [facility] Interpretation Code 10-21-2013 [facility] (69515) Anion gap 4 molar 7 Invalid 10-21-2013 - [place] conc Interpretation Code 10-21-2013 [facility] (09434) Anion gap molar 7 mmol/L 10-21-2013 - [facility] 10-21-2013 Associate s (00761) Calcium mass conc 8.9 mg/dL 10-21-2013 - [facility] Surgical 10-21-2013 Associate s (20861) Chloride molar 109 mmol/L High 10-21-2013 - [facility] Surgical conc 10-21-2013 Associate s (99461) CO2 26 mmol/L Invalid 10-21-2013 - [facility] Interpretation Code 10-21-2013 [facility] (25841) CO2 ppres (BldV) 26 mmol/L 10-21-2013 - [facility] Surgical 10-21-2013 Associate s (79840) Creatinine mass 0.8 mg/dL 10-21-2013 - [facility] conc 10-21-2013 Associate [facility] (71823) Glucose 118 mg/dL [facility]-21-[facility] (52985) Glucose mass conc 118 mg/dL High 10-21-2013 - [facility] Surgical 10-21-2013 Associate s (69581) Potassium molar 3.4 mmol/L Low 10-21-2013 - [facility] conc 10-21-2013 Associate s (69567) Sodium molar conc 142 mmol/L 10-21-2013 - [facility] Surgical 10-21-2013 Associate s (81383) Thyrotropin Qn 3.36 u[iU]/mL 10-21-2013 - [facility] Surgical 10-21-2013 Associate s (43873) Urea nitrogen 8 mg/dL 10-21-2013 - [facility] Surgical mass conc 10-21-2013 Associate s (54813) Urea 10.0 mg/mg 10-21-2013 - [facility] Ramila gical nitrogen/Creatini 10-21-2013 A ssociates ne mass ratio (98784 ) clinical lists update: preload on 2012-12-28 Erythrocytes (RBC) 5.04 10*6/uL Invalid 12-28-2012 - [place] Interpretation Code 12-28-2012 [facility] (32061) MCH 32.3 pg High 12-28-2012 - [place] 12-28-2012 [facility] (70787) MCH Entitic mass 32.3 pg High 12-28-2012 - [facility] Surgical (RBC) 12-28-2012 Associate s (24238) MCV 94.2 fL Invalid 12-28-2012 - [facility] Interpretation Code 12-28-2012 [facility] (43353) MCV Entitic volume 94.2 fL 12-28-2012 - [facility] Surgical (RBC) 12-28-2012 Associate s (75948) RBC #/vol (Bld) 5.04 10*6/uL 12-28-2012 - [facility] 12-28-2012 Associate s (10756) replaced document: midmark ecg observati ons on 2012-11-25 EKG QRS axis 54 deg 11-25-2012 - [facility] Surgical 11-25-2012 Associate s (97225) electrocardiogram Sinus Rhythm Invalid 3 - [place] interpretation -With rate Interpretation 3 [facility] variation cv Code (32810) = 10.-Nonspecif ic ST depression -[place] c . ABNORMAL Interpretation Sinus Rhythm 11-25-2012 - [facility] Surgical -With rate 11-25-2012 Associat es variation cv (44250) = 10.-Nonspecif ic ST depression -[place] c . ABNORMAL P Ruby 49 deg 11-25-2012 - [facility] Ramila gical 11-25-2012 Associate s ([id number]) P wave axis, 49 deg Invalid 11-25-2012 - [place] electrocardiogram Interpretation 013 [facility] Code (58496) OR Interval 132 ms 11-25-2012 - [facility] S urgical 11-25-2012 Associate s ([id number]) OR interval, 132 ms Invalid 11-25-2012 - [place] electrocardiogram Interpretation 013 [facility] Code (28274) Pulse (Heart Rate) 73 BPM /min Invalid 11-25-2012 - [place] Interpretation 11-25-2012 [facility] Code (86346) Pulse (Heart Rate) 413 ms Invalid 11-25-2012 - [place] Interpretation 11-25-2012 [facility] Code (95918) QRS axis, 54 deg Invalid 11-25-2012 - [place] electrocardiogram Interpretation 013 [facility] Code (41303) QRS Duration 96 ms 11-25-2012 - [facility] Surgical 11-25-2012 Associate s ([id number]) QRS duration, 96 ms Invalid 11-25-2012 - [place] electrocardiogram Interpretation 013 [facility] Code (29373) QT Interval new path ms 11-25-2012 - [facility] Surgical 11-25-2012 Associate s ([id number]) QT interval, new path ms Invalid 11-25-2012 [facility] electro[facility]ogram Interpretation 013 [facility] Code (14971) T Ruby 48 deg 11-25-2012 - [facility] Ramila gical 11-25-2012 Associate s ([id number]) T wave axis, 48 deg Invalid 11-25-2012 - [place] electrocardiogram Interpretation 013 [facility] Code (13956) ekg report: midmark ecg observations on 2012-11-25 QTc Silva 412 ms 11-25-2012 - 2012 [facility] ([id number]) Vital Signs Vital Sign Description Value / Unit Date Location The following section is limited to 5 en tries per type and includes entries from the following time range: 20161127 - 20161226 0. BMI (Body Mass Index) 37.49 kg/m2 01-13-2017 - 01-13-2017 [facility] Surgical Associates (11470) BMI (Body Mass Index) 37.55 kg/m2 01-08-2017 - 01-08-2017 [facility] (24490) BMI (Body Mass Index) 37.13 kg/m2 12-14-2016 - 12-14-2016 [place] [facility] (51838) BMI (Body Mass Index) 36.58 kg/m2 11-27-2016 - 11-27-2016 [facility] (04759) BMI (Body Mass Index) 36.94 kg/m2 11-16-2016 - 11-16-2016 [facility] Surgical [facility] (94018) Body Temperature 98.4 [degF] 01-13-2017 - 01-13-2017 [facility] gical Associates (54967) Body Temperature 97.11 [degF] 12-14-2016 - 12-14-2016 [place] [facility] (01775) Body Temperature 97.1 [degF] 12-14-2016 - 12-14-2016 [place] [facility] (85721) Body Temperature 97.8 [degF] 11-27-2016 - 11-27-2016 [place] [facility] (54925) Body Temperature 97.81 [degF] 11-27-2016 - 11-27-2016 [place] [facility] (76339) Body weight 91.63 kg 02-05-2020 [facility] (23073) BP Diastolic 84 mm[Hg] 02-05-2020 [facility] (63478) BP Diastolic 77 mm[Hg] 01-13-2017 - 01-13-2017 [facility] Surg ical Associates ([id number]) BP Diastolic 82 mm[Hg] 01-08-2017 - 01-08-2017 [facility] (35788) BP Diastolic 75 mm[Hg] 12-14-2016 - 12-14-2016 [place] [facility] (24329) BP Diastolic 84 mm[Hg] 11-27-2016 - 11-27-2016 [place] [facility] (02995) BP Systolic 142 mm[Hg] 02-05-2020 [facility] (04426) BP Systolic 114 mm[Hg] 01-13-2017 - 01-13-2017 [facility] Surg ical Associates ([id number]) BP Systolic 120 mm[Hg] 01-08-2017 - 01-08-2017 [facility] (09301) BP Systolic 113 mm[Hg] 12-14-2016 - 12-14-2016 [place] [facility] (33816) BP Systolic 127 mm[Hg] 11-27-2016 - 11-27-2016 [place] [facility] (58528) BSA (Body Surface Area) 1.83 m2 08-22-2014 - 08-22-2014 [facility] ([id number]) Heart rate 96 /min 01-08-2017 - 01-08-2017 [place] [facility] (76826) Heart rate 413 ms 11-25-2012 - 11-25-2012 [facility] Surg ical Associates (06846) Heart rate 73 /min 11-25-2012 - 11-25-2012 [facility] Surg ical Associates ([id number]) Height 157.48 cm 01-13-2017 - 01-13-2017 [facility] Surg ical Associates ([id number]) Height 157.48 cm 01-08-2017 - 01-08-2017 [facility] (71193) Height 157.48 cm 12-14-2016 - 12-14-2016 [place] [facility] (11756) Height 157.48 cm 11-27-2016 - 11-27-2016 [place] [facility] (01213) Height 157.48 cm 11-16-2016 - 11-16-2016 [facility] Surg ical Associates (83230) Pulse (Heart Rate) 100 /min 02-05-2020 [facility] (43859) Pulse (Heart Rate) 95 /min 01-13-2017 - 01-13-2017 [facility] S urgical Associates (68143) Respiratory Rate 16 /min 02-05-2020 [facility] (40654) Respiratory Rate 18 /min 01-13-2017 - 01-13-2017 [facility] Ramila gical Associates (27127) Respiratory Rate 20 /min 01-08-2017 - 01-08-2017 [facility] (11290) Respiratory Rate 16 /min 12-14-2016 - 12-14-2016 [place] [facility] (15404) Respiratory Rate 16 /min 11-27-2016 - 11-27-2016 [place] [facility] (82151) Weight 92.99 kg 01-13-2017 - 01-13-2017 [facility] Surg ical Associates (93756) Weight 93.13 kg 01-08-2017 - 01-08-2017 [facility] (68280) Weight 92.08 kg 12-14-2016 - 12-14-2016 Emery taylor [facility] (49330) Weight 90.72 kg 11-27-2016 - 11-27-2016 [facility] (37997) Encounters Date Type Reason Provider Location 12-12-2019 - 12-12-2019 Chart abstracting [facility] Neurology Comment: HSAT Check In (Adult) 02-01-2020 - 02-01-2020 [facility] Hypoxia Hugo Nava [facility] Lex[facility] Comment: Hypoxia (Primary Dx); ANDRESSA (obstructive sleep apnea ); Depression, unspecified depr ession type; Impaired glucose tolerance; Attention deficit hyperactiv ity disorder (ADHD), combined type 01-29-2020 - E-mail encounter [facility] Provider Zack rubio 01-29-2020 from carer 10-12-2017 Patient Dizziness and UNKNOWN PROVIDER [facility] giddiness [facility] (0 0000) Hugo Nava 06-30-2017 Patient [...] - Patient encounter Obstructive sleep Hugo Nava [facility] 01-24-2020 procedure apnea syndrome Lexi Comment: RE: Test Result Question 01-04-2020 - Patient encounter Bacterial Hugo Nava [facility] edicine 01-04-2020 procedure sinusitis [place] Comment: Bacterial sinusitis (Primary Dx) 12-14-2019 - Patient [facility] 12-14-2019 encounter procedure 12-11-2019 - Patient Postablative [facility] 12-11-2019 encounter hypothyroidism (Pa-C) Ceja [facility] procedure Comment: Swelling of both lower extre mities (Primary Dx); Postablative hypothyroidism; Elevated hemoglobin (HCC) 12-07-2018 Patient encounter Disease -[facility] Medical procedure [facility] ([id number]) 08-03-2018 Patient encounter Disease [facility] ([id number]) 06-20-2018 - Patient encounter SENIA Antonieta Brittany Facility:[facility] 06-20-2018 procedure IMCA [facility] LATASHA BOLTON 01-19-2018 Patient encounter Disease [facility] ([id number]) 09-22-2017 Patient encounter Disease [facility] ([id number]) 06-21-2017 Patient encounter Disease [facility] ([id number]) 02-05-2020 - Phys/qhp online Treatment not Marlin [...] Ceja patient 01-29-2020 - [facility]-29-2020 [facility] Comment: Results - Sleep Study 01-11-2020 - 01-11-2020 Telephone encounter Antonieta Kwong) Family Medicine Marcial Crawley Comment: needs notes supporting sleep study order 2019 - 2019 Telephone encounter Hugo Lemons [facility] Lexi Comment: results home sleep study Procedures Procedure Name Date Provider Location Polysom 6/>yrs sleep 4/> 12-14-2019 Hugo Cottrell [facility] add[facility] unique attnd ([id number]) Mammography 06-16-2019 - [facility] 06-16-2019 ([id number]) Dietary management 02-15-2017 - [facility] Surgical education, guidance, and 02-15-2017 [facility] inoc[facility] (31097) counseling Colonoscopy 02-10-2017 - [facility] 02-10-2017 ([id number]) Dietary management 01-13-2017 - [facility] michele education, guidance, and 01-13-2017 Care (4 1254) counseling Screening for malignant 01-13-2017 [facility] neoplasm of colon Care (13366) Ecg routine ecg w/least 12 01-08-2017 - Ayan Koehler NP Annabella dale [facility] lds w/i&r 01-08-2017 Care ([id number]) Follow Up Appt 6 months 01-08-2017 - Ayan Koehler NP [facility] [facility] 01-08-2017 Care ([id number]) PF 01-08-2017 - Ayan Koehler [employer] [place] [facility] 01-08-2017 Care (23076) Electrocardiogram, complete 01-08-2017 - Ayan Koehler [facility] 01-08-2017 ([id number]) Follow Up Appt 6 months 01-08-2017 - Ayan Koehler NP [facility] 01-08-2017 (07832) PF 01-08-2017 - Ayan Koehler NP [facility] 01-08-2017 ([id number]) Gynecologic examination 12-14-2016 [facility] (14622) Screening for malignant 12-14-2016 [facility] neoplasm of cervix Care (23298) Gynecologic examination 12-14-2016 [facility] (75135) Screening for malignant 12-14-2016 [facility] [facility] neoplasm of cervix Care (72397) Bacteria identified in 11-27-2016 - Michelle Sexton elyssagabrielle Women[facility] Urine by Culture 12-21-2016 Care ([id number]) Urinalysis 11-27-2016 - [facility] 11-27-2016 Care (66697) Bacteria identified in 11-27-2016 - Michelle Sexton elyssagabrielle Women[facility] Urine by Culture 12-21-2016 Care ([id number]) Dietary management 08-22-2014 - [facility] Surgical education, guidance, and 08-22-2014 [facility] inoc[facility] (82603) counseling Documentation of current 08-22-2014 [facility] 08-23-2014 [facility] ([id number]) Follow Up Appt Other 08-22-2014 - Annabella Baker [facility] Women[facility] 08-22-2014 [facility] (34193) Smoking cessation education 08-22-2014 - Pati Richardson , [facility] 08-23-2014 [facility] Care (18406) Documentation of current 08-22-2014 - Pati Richardson, W Surgical medications 08-23-2014 [facility] ([phone] 1) Follow Up Appt Other 08-22-2014 - Pati Richardson, [facility] S urgical 08-22-2014 [facility] ([phone] 1) Smoking cessation education 08-22-2014 - Pati Richardson , [facility] Surgical 08-23-2014 [facility] ([phone] 1) Follow Up Appt 6 months 11-20-2013 [facility] 11-20-[facility] (24070) [facility] 11-20-2013 - Blair Canseco MD [facility] 11-20-2013 Care ([id number]) Follow Up Appt 6 months 11-20-2013 - Blair Canseco MD [facility] Surgical 11-20-2013 Associates ([phone] 1) [facility] 11-20-2013 - Blair Canseco MD [facility] Surgical 11-20-2013 Associates ([phone] 1) Follow Up Appt 6 months 05-25-2013 - Pati Richardson [facility] 05-25-2013 PA-C Care ([id number]) [facility] 05-25-2013 - Pati Richardson [facility] 05-25-2013 PA-C Care ([id number]) Follow Up Appt 6 months 05-25-2013 - Pati Richardson [facility] Surgical 05-25-2013 [facility] Associates ([phone] 1) [facility] 05-25-2013 - Pati Richardson [facility] Surgic al 05-25-2013 [facility] ([phone] 1) Follow Up Appt 3 months 01-11-2013 - Pati Richardson [facility] 05-25-2013 PA-C Care ([id number]) [facility] 01-11-2013 [facility] Care ([id number]) Follow Up Appt 3 months 01-11-2013 - Pati Richardson, [facility] Surgical 05-25-2013 [facility] Associates ([phone] 1) PFM 01-11-2013 - Pati Richardson, [facility] Surgic al 05-25-2013 PA[facility] ([phone] 1) Ecg routine ecg w/least 12 11-25-2012 - Blair Canseco MD [facility] Women's lds w/i&r 11-25-2012 Care ([id number]) Echocardiography 11-25-2012 - Blair Canseco MD [facility] 12-29-2012 Care ([id number]) Follow Up Appt 6 weeks 11-25-2012 - Blair Canseco MD [facility] 11-25-2012 Care ([id number]) MMM 11-25-2012 - Blair aCnseco MD [facility] 11-25-2012 Care ([id number]) Stress Echocardiogram 11-25-2012 - Blair Canseco MD [facility] (treadmill) 12-29-2012 Care ([id number]) Xtrnl mobile cv telemetry 11-25-2012 - Blair Canseco MD [facility] Women's w/i&report 30 days 01-11-2013 Care ([id number]) Ecg routine ecg w/least 12 11-25-2012 - Blair Canseco MD W Surgical lds w/i&r 11-25-2012 Associates ([phone] 1) Echocardiography 11-25-2012 - Blair Canseco MD [facility] Surgica l 12-29-2012 Associates ([phone] 1) Follow Up Appt 6 weeks 11-25-2012 - Blair Canseco MD [facility] S urgical 11-25-2012 Associates ([phone] 1) MMM 11-25-2012 - Blair Canseco MD [facility] Surgical 11-25-2012 Associates ([phone] 1) Stress Echocardiogram 11-25-2012 - Blair Canseco MD [facility] (treadmill) 12-29-2012 Associates ([phone] 1) Xtrnl mobile cv telemetry 11-25-2012 - Blair Canseco MD [facility] Surgical w/i&report 30 days 01-11-2013 Associates ([phone]) Oophorectomy [facility] (35925) Plan of Treatment Plan Description Date Location DTAP,TDAP,TD (2 - Td) DTAP,TDAP,TD (2 - Td) 01-26-2028 - [facility] 01-26-2028 ([id number]) LIPID SCREEN LIPID SCREEN 12-03-2024 - [facility] 12-03-2024 ([id number]) HPV TESTING HPV TESTING 11-25-2023 - [facility] 11-25-2023 ([id number]) PAP TESTING PAP TESTING 11-25-2023 - [facility] 11-25-2023 ([id number]) DIABETES SCREEN DIABETES SCREEN 12-03-2022 - [facility] 12-03-2022 ([id number]) MAMMOGRAM MAMMOGRAM 06-16-2021 - [facility] 06-16-2021 ([id number]) ANNUAL PCP TEAM CHRONIC ANNUAL PCP TEAM CHRONIC 01-31-2021 - [facility] DISEASE VISIT DISEASE VISIT 01-31-2021 ([id number]) ANNUAL PCP TEAM CHRONIC ANNUAL PCP TEAM CHRONIC 01-03-2021 - [facility] DISEASE VISIT DISEASE VISIT 01-03-2021 ([id number]) ANNUAL PCP TEAM CHRONIC ANNUAL PCP TEAM CHRONIC 12-10-2020 - [facility] DISEASE VISIT DISEASE VISIT 12-10-2020 ([id number]) COLONOSCOPY COLONOSCOPY 02-11-2020 - [facility] 02-11-2020 ([id number]) COLORECTAL CANCER COLORECTAL CANCER 02-11-2020 [facility] inic SCREENING,SEE MODIFIER SCREENING,SEE MODIFIER (7 9217) T4 FREE/FREE THYROX T4 FREE/FREE THYROX Lab 01-25-2020 - [facility] Routine Postablative 12-10-2020 ([id number]) hypothyroidism Expected: 01/25/2020, Expires: 12/10/2020 Comment: Expected: 01/25/2020, s: 12/10/2020 TSH BLD TSH BLD Lab Routine 01-25-2020 - 12-10-2020 [facility] (32297) Postablative hypothyroidism Expected: 01/25/2020, Expires: 12/10/2020 Comment: Expected: 01/25/2020, s: 12/10/2020 INFLUENZA (#1) INFLUENZA (#1) 2019 - [facility] 12-26-2019 ([id number]) Appointment Appointment 09-15-2017 - [facility] 09-15-2017 ([id number]) Appointment Appointment 02-10-2017 - [place] [facility] 02-10-2017 Care ([id number]) Esophagus, Esophagus, 01-14-2017 - [place] [facility] gastroesophageal reflux gastroesophageal reflux 01-14-2017 Care (73716) test; Nash probe test; Nash probe Esophagus, Esophagus, 01-14-2017 - [place] [facility] gastroesophageal reflux gastroesophageal reflux 01-14-2017 Care ([id number]) test; Nash probe test; Nash probe Colonoscopy Colonoscopy 01-13-2017 - [place] [facility] 01-13-2017 Care ([id number]) EGD; diagnostic EGD; diagnostic 01-13-2017 - [place] [facility] 01-13-2017 Care ([id number]) Appointment Appointment 01-13-2017 - [facility] 01-13-2017 ([id number]) Colonoscopy Colonoscopy 01-13-2017 - [facility] Surgical 01-13-2017 Associates ([phone] 1) EGD; diagnostic EGD; diagnostic 01-13-2017 - [facility] Surgical 01-13-2017 Associates ([phone] 1) Appointment Appointment 01-08-2017 - [facility] 01-08-2017 ([id number]) Follow Up Appt 6 months Follow Up Appt 6 months 01-08-2017 - [place] [facility] 01-08-2017 Care (48593) PFM PFM 01-08-2017 - [place] [facility] 01-08-2017 Care ([id number]) Follow Up Appt 6 months Follow Up Appt 6 months 01-08-2017 - [facility] 01-08-2017 ([id number]) PFM PFM 01-08-2017 - [facility] 01-08-2017 ([id number]) Appointment Appointment 12-14-2016 - [facility] Surgical 12-14-2016 Associates ([phone] 1) *CUUR - Culture, Urine *CUUR - Culture, Urine 11-27-2016 - [facility] ([place] ([place] Count) 12-21-2016 Care ([id number]) US Pelvis US Pelvis 11-27-2016 - [place] [facility] 11-30-2016 Care ([id number]) US Transvaginal US Transvaginal 11-27-2016 - [place] [facility] 11-30-2016 Care ([id number]) Appointment Appointment 11-27-2016 - [place] [facility] 11-27-2016 Care ([id number]) *CUUR - Culture, Urine *CUUR - Culture, Urine 11-27-2016 - [facility] ([place] Count) ([place] Count) 12-21-2016 Care (21917) US Pelvis no information 11-27-2016 - [place] [facility] 11-30-2016 Care ([id number]) US Transvaginal US Transvaginal 11-27-2016 - [facility] n's 11-30-2016 Care ([id number]) SHINGRIX VACCINE (1 of SHINGRIX VACCINE (1 of 12-26-2015 - [facility] 2) 2) 12-26-2015 ([id number]) Follow Up Appt Other Follow Up Appt Other 08-22-2014 - [facility] Women[facility] 08-22-2014 Care ([id number]) Follow Up Appt Other Follow Up Appt Other 08-22-2014 - [facility] 08-22-2014 Associates ([phone] 1) Follow Up Appt 6 months Follow Up Appt 6 months 11-20-2013 - [place] [facility] 11-20-2013 Care (09674) MMM MMM 11-20-2013 - [facility] ns 11-20-2013 Care ([id number]) Follow Up Appt 6 months Follow Up Appt 6 months 11-20-2013 - [facility] Surgical 11-20-2013 Associates ([phone] 1) MMM MMM 11-20-2013 - [facility] Surgical 11-20-2013 Associates ([phone] 1) Follow Up Appt 6 months Follow Up Appt 6 months 05-25-2013 - [place] [facility] 05-25-2013 Care ([id number]) PFM PFM 05-25-2013 - [facility] n's 05-25-2013 Care ([id number]) Follow Up Appt 6 months Follow Up Appt 6 months 05-25-2013 - [facility] Surgical 05-25-2013 Associates ([phone] 1) PFM PFM 05-25-2013 - [facility] Surgical 05-25-2013 Associates ([phone] 1) Follow Up Appt 3 months Follow Up Appt 3 months 01-11-2013 - [place] [facility] 01-11-2013 Care ([id number]) PFM PFM 01-11-2013 - [place] [facility] 05-25-2013 Care (20917) Follow Up Appt 3 months Follow Up Appt 3 months 01-11-2013 - [facility] Surgical 01-11-2013 Associates ([phone] 1) PFM PFM 01-11-2013 - [facility] Surgical 05-25-2013 Associates ([phone] 1) EKG (In office) EKG (In office) 11-25-2012 - [place] [facility] 11-25-2012 Care ([id number]) Echocardiogram Echocardiogram 11-25-2012 - [facility] n's (complete) (complete) 11-25-2012 Care ([id number]) Follow Up Appt 6 weeks Follow Up Appt 6 weeks 11-25-2012 - [facility] Women[facility] 11-25-2012 Care ([id number]) MMM MMM 11-25-2012 - [place] [facility] 11-25-2012 Care (37640) Stress Echocardiogram Stress Echocardiogram [facility]-2012 [facility] 11-25-2012 Care ([id number]) 30 Day Holter Monitor 30 Day Holter Monitor 11-25-2012 - [facility] Women's 11-25-2012 Care ([id number]) EKG (In office) EKG (In office) 11-25-2012 - [facility] Surgical 11-25-2012 Associates ([phone] 1) Echocardiogram Echocardiogram 11-25-2012 - [facility] Surgical (complete) (complete) 11-25-2012 Associates ([phone] 1) Follow Up Appt 6 weeks Follow Up Appt 6 weeks 11-25-2012 - [facility] Surgical 11-25-2012 Associates ([phone] 1) MMM MMM 11-25-2012 - [facility] Surgical 11-25-2012 Associates ([phone] 1) Stress Echocardiogram Stress Echocardiogram 11-25-2012 - [facility] Surgical (treadmill) (treadmill) 11-25-2012 Associates ([phone] 1) 30 Day Holter Monitor 30 Day Holter Monitor 11-25-2012 - [facility] Surgical 11-25-2012 Associates ([phone] 1) ADULT PREVNAR-13 ADULT PREVNAR-13 1984 - [facility] ic 1984 (79415) TWO PNEUMOVAX 5 YEARS TWO PNEUMOVAX 5 YEARS 1984 - [facility] APART PRIOR TO AGE 65 APART PRIOR TO AGE 65 1984 ([phone]) (#1) (#1) HEPATITIS C SCREENING HEPATITIS C SCREENING 12-26-1983 - [facility] 12-26-1983 ([id number]) HIV SCREENING HIV SCREENING 12-26-1983 - [facility] 12-26-1983 (79104) PAP TITRATION PSG (CPAP, PAP TITRATION PSG (CPAP, 02-22-2021 [facility] BIPAP, ASV) BIPAP, ASV) Procedures (23754) Routine ANDRESSA (obstructive sleep apnea) 1 Occurrences starting 01/24/2020 until 02/22/2021 Comment: 1 Occurrences starting 01/23 until 02/22/2021 Patient education no information [facility] (59672) no information [facility] (66729) The following information is from the original human readable content Name Dates Details Planned Observations Planned Goals not documented Planned Encounters Appointment; Latasha Benites MD On: 03-May-2019 8:30 Immunizations Vaccine Notes Status Date Location Influenza Seasonal influenza, (completed) 01-10-2018 - [facility] Inj Quadrivalent Age injectable, 01-10-2018 ([id number]) 3+ quadrivalent, contains preservative Payers Payer Name Policy Number Location [facility] ([id number]) [employer] [id number] [facility] ([id number]) [employer] [id number] [facility] (44 195) [id number] [facility] ([id number]) The following information is from the original human readable contentNo Payer Records FoundNo Payer Records FoundNo Payer Records FoundNo Payer Records FoundNo Payer Records FoundNo Payer Records FoundNo Payer Records FoundNo Payer Records FoundNo Payer Records FoundNo Payer Records FoundNo Payer Records Found Social History Type Social History Date Location Description Tobacco smoking status Current every day smoker 1985 - [facility] NHIS 02-05-2020 (00291) History SDOH Social 2 12-08-2019 - [facility] 01-28-2020 (87530) History of tobacco use Cigarette Smoker 1985 [facility] (99150) Cigarettes smoked 12-08-2019 - [facility] ic current (pack per day) - 02-05-2020 (54515) Reported Tobacco use and exposure Never used 12-08-2019 - [facility] 02-05-2020 (47103) Alcohol intake Current non-drinker of 12-08-2019 - [facility] alcohol (finding) 02-05-2020 (24851) History SDOH Alcohol 1 12-08-2019 - [facility] Frequency 12-08-2019 (95106) History SDOH Alcohol Std 98 12-08-2019 - [facility] Drinks 12-08-2019 (48704) History SDOH Social 5 12-08-2019 - [facility] Phone 01-28-2020 (77389) NEGATED: High[facility]ed row [facility] (99911[facility] History SDOH Social 3 12-08-2019 - [facility] 01-28-2020 (25734) History SDOH Physical 0 12-08-2019 - [facility] Activity DPW 12-08-2019 (41283) History SDOH Stress 4 12-08-2019 - [facility] 12-08-2019 (80820) History SDOH Education 17 12-08-2019 - [facility] [facility] 12[facility] ([id number]) Tobacco Comment Has quit intermittently, 08-13-2016 - [facility] And I'm working on it 08-13-2016 ([id number]) now. 1st AM cigarette 10-15 minutes after awake. Most desired is that one, or last of day before bed. Prior 8 month quits, resumed after pregnancies completed. TO Sex Assigned At Female [facility] ([id number]) Exposure to SARS-CoV-2 Not sure [facility] (event) (68132) Exposure to SARS-CoV-2 Unable to assess [facility] (event) ([id number]) The following information is from the original [...] performance issues are not documented Group-Iggy yen (91191) Mental Status Status Assessment Result Location NEGATED: Highlighted Cognitive status health MP-Select Medic al rowCognitive function issues are not documented Group-Von sumeet ([id number]) [Interpretation] Summary Purpose Family History No Family [...] Documents on File Type Date Recorded 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 Colon Cancer Father age 64 [place] ? Diabetes Father Type 2 ? Hypertension Father ? Coronary Artery Disease Father Hx of [place] ? Thyroid Sister hx of parathyroid disease/ [...] RitaCarmen siu - 12/12/2019 11:26 AM EDTPOLLO #[id number] Date shipped out 12/11 [employer] MAIL OUT TRACKING NUMBER [id number] [employer] RETURN TRACKING NUMBER [id number] signed by Carmen Alice at 12/18/2019 6:39 [...] suspected with comorbid medical or sleep disorders: Nbwdfcbe-ea-dpgmnh pulmonary disease Sleep study to be performed: [...] Sleep Apnea Test (HSAT) from brittany Rodriguez. [facility] Staff. Visit prep complete. Comments :No The sleep study is scheduled for 12/12. Insurance: Payor: [facility] [employer] / Plan: [facility] [employer] / Product Type: Medicaid / Payor/Plan Subscr Sex Relation Sub. Ins. ID Effective Group Num 1. NESSA GARZON,JAZLYN M 1965 Female Self [id number] 05/27/16 [facility] [address] Carmen Jenkins documented in this encounterElijahHugo Cristo [...] ? Rectocele 05/13/2009 ? SVT (supraventricular tachycardia) ([facility]) ? Syncope 05/14/2013 -Reported that [...] stroke ? Colon Cancer Father age 64 [place] ? Diabetes Father Type 2 ? Hypertension Father ? Coronary Artery Disease Father Hx of [place] ? Thyroid Sister hx of parathyroid disease/ [...] with more than 50% of the total plhp-fl-hlgt time of the visit in counseling / [...] stroke ? Colon Cancer Father age 64 MA ? Diabetes Father Type 2 ? Hypertension Father ? Coronary Artery Disease Father Hx of [place] ? Thyroid Sister hx of parathyroid disease/ [...] [facility]AL CARDIOLOGY Cardiology ([facility]) [address] [facility] [id number] OUTPATIENT VISIT DATE 02/04/2020 PRIMARY CARE PHYSICIAN: Hugo Nava MD [address] [place] [address] REFERRING PHYSICIAN: Hugo Nava MD [address] [facility] [address] CHIEF COMPLAINT: Inappropriate sinus tachycardia and chest [...] Family history: Patient's father had his first MA at age 50. He had stents at [...] ? Rectocele 05/13/2009 ? SVT (supraventricular tachycardia) ([facility]) ? Syncope 05/14/2013 -Reported that [...] stroke ? Colon Cancer Father age 64 MA ? Diabetes Father Type 2 ? Hypertension Father ? Coronary Artery Disease Father Hx of [place] ? Thyroid Sister hx of parathyroid disease/ [...] the years. Had a recent admission to [facility] emergency room on that hospital admission, [...] time spent: < 5 minutes. Marlin Mohamud APRN.FURNACE COMBINATION ANALYST documented in this encounter Assessments Diagnosis Swelling [...] Contact Authorized PCP Requested Cardiology Diagnoses Hypoxia uHgo Nava Referral Procedures CONSULT TO CARDIOLOGY NEW PATIENT VISIT LEVEL [address] [place] [address] Status Reason Specialty Diagnoses / Referred By Referred To Procedures Contact Contact Authorized PCP Requested Pulmonary and Diagnoses Hypoxia Hugo Nava Referral Critical Care Procedures CONSULT TO PULM/CRITICAL CARE NEW PATIENT VISIT LEVEL 5 [address] [place] [address] Additional Source Comments FOR RECORDS PERTAINING TO [...] BE BASED ON THE PRIMARY CLINICAL RECORDS. [facility] provides no warranty or guarantee of the accuracy or completeness of information in this document. UNRECOGNIZED CONTENT PROVIDED BELOW FOR UNRECOGNIZED SECTION INFORMATION SOURCE DATE CREATED AUTHOR AUTHOR'S ORGANIZATIO N 10/12/2017 [facility] DATE CREATED AUTHOR AUTHOR'S ORGANIZATIO N 2017 [facility] DATE CREATED AUTHOR AUTHOR'S ORGANIZATIO N 06/15/2018 [facility] DATE CREATED AUTHOR AUTHOR'S ORGANIZATIO N 06/28/2018 [facility] DATE CREATED AUTHOR AUTHOR'S ORGANIZATIO N 12/07/2018 [facility] DATE CREATED AUTHOR AUTHOR'S ORGANIZATIO N 12/10/2018 [facility] DATE CREATED AUTHOR AUTHOR'S ORGANIZATIO N 05/03/2019 [facility] DATE CREATED AUTHOR AUTHOR'S ORGANIZATIO N 02/06/2020 [facility] UNRECOGNIZED CONTENT PROVIDED BELOW FOR UNRECOGNIZED SECTION Source Comments In the event this information is protected by the Federal Confidentiality of Alcohol and Drug Abuse Patient Records regulations: The Federal rules restrict any use of the information to criminally investigate or prosecute any alcohol or drug abuse patient.[facility] the event this information is protected by the Federal Confidentiality of Alcohol and Drug Abuse Patient Records regulations: The Federal rules restrict any use of the information to criminally investigate or prosecute any alcohol or drug abuse patient.[facility] Center[facility] the event this information is protected by the Federal Confidentiality of Alcohol and Drug Abuse Patient Records regulations: The Federal rules restrict any use of the information to criminally investigate or prosecute any alcohol or drug abuse patient.[facility] Center[facility] the event this information is protected by the Federal Confidentiality of Alcohol and Drug Abuse Patient Records regulations: The Federal rules restrict any use of the information to criminally investigate or prosecute any alcohol or drug abuse patient.[facility] Center[facility] the event this information is protected by the Federal Confidentiality of Alcohol and Drug Abuse Patient Records regulations: The Federal rules restrict any use of the information to criminally investigate or prosecute any alcohol or drug abuse patient.[facility] Center[facility] the event this information is protected by the Federal Confidentiality of Alcohol and Drug Abuse Patient Records regulations: The Federal rules restrict any use of the information to criminally investigate or prosecute any alcohol or drug abuse patient.[facility] Center[facility] the event this information is protected by the Federal Confidentiality of Alcohol and Drug Abuse Patient Records regulations: The Federal rules restrict any use of the information to criminally investigate or prosecute any alcohol or drug abuse patient.[facility] Center[facility] the event this information is protected by the Federal Confidentiality of Alcohol and Drug Abuse Patient Records regulations: The Federal rules restrict any use of the information to criminally investigate or prosecute any alcohol or drug abuse patient.[facility] Center[facility] the event this information is protected by the Federal Confidentiality of Alcohol and Drug Abuse Patient Records regulations: The Federal rules restrict any use of the information to criminally investigate or prosecute any alcohol or drug abuse patient.[facility] Center[facility] the event this information is protected by the Federal Confidentiality of Alcohol and Drug Abuse Patient Records regulations: The Federal rules restrict any use of the information to criminally investigate or prosecute any alcohol or drug abuse patient.[facility] CenterIn the event this information is protected by the Federal Confidentiality of Alcohol and Drug Abuse Patient Records regulations: The Federal rules restrict any use of the information to criminally investigate or prosecute any alcohol or drug abuse patient.[facility] CenterIn the event this information is protected by the Federal Confidentiality of Alcohol and Drug Abuse Patient Records regulations: The Federal rules restrict any use of the information to criminally investigate or prosecute any alcohol or drug abuse patient.[facility] CenterIn the event this information is protected by the Federal Confidentiality of Alcohol and Drug Abuse Patient Records regulations: The Federal rules restrict any use of the information to criminally investigate or prosecute any alcohol or drug abuse patient.[facility] UNRECOGNIZED CONTENT PROVIDED BELOW FOR UNRECOGNIZED SECTION [...] CARDIOLOGY NEW PATIENT VISIT LEVEL [address] [place], [place] [address] Reason Comments Eye Problem UNRECOGNIZED CONTENT PROVIDED [...] most recent sleep study. All faxed to [facility] Sleep lab. elephone Encounter - Antonieta Ceja) - 01/11/2020 4:21 PM EDTPlease copy 12/27/19 Dr. Nava message and send. Too many notes and messages to go through. Can you find date of original test orders? Thanks, Cesar Ceja PA-C b Telephone Encounter - Darlene Donato LPN - 01/11/2020 8:18 AM Jatinder from [facility] Sleep Lab calling patient is [...] up thank you. Patient is seen in [place], I do not have the [place] schedulers pool. Mague Ivory Ma elephone Encounter [...] - 01/29/2020 12:46 PM EDTLet her know [facility] contacted us. Even the the doctor reading it felt she should be treated with cpap, her insurance if refusing to cover at her level. We could have her see a sleep doc if she is willing. documented in this encounterTelephone Encounter - Hugo Nava - 01/31/2020 8:10 AM EDT noted documented in this encounter
--- OUTSIDE RECORDS SUMMARY | 2020-02-06 13:16 | XMS RPT_ITS | CCD ---
:1965 External Reference #:[id number] Author Organization [facility] Care Team Providers Name Role Phone Bryce HARRIS, Haily Unavailable David HARRIS, P Unavailable Roof CHRONOMETER ASSEMBLER, H Unavailable Bryce HARRIS, Haily Unavailable PROVIDER Unavailable Unavailable PROVIDER Unavailable Unavailable PROVIDER Unavailable Unavailable PROVIDER Unavailable Unavailable PROVIDER Unavailable Unavailable Bittenbender Unavailable Unavailable Elijah Unavailable Unavailable Antonieta BOLTON Attending Unavailable IMCA Referring Unavailable Elijah Primary Care Unavailable LTAASHA BOLTON Attending Unavailable Lisa Naidu Unavailable Unavailable Delmis Unavailable Unavailable Cristo Nava Unavailable Unavailable Antonieta Rascon Unavailable Unavailable Cristo Nava Primary Care Provider Allergies Reported Allergen Reaction(s) Severity Date of Location Onset Acetaminophen / Critical, 11-10-2012 [facility] HYDROcodone Critical - Associates (56119) Acetaminophen / Vomiting Unknown, High 07-17-2011 Nickolas dueñas HYDROcodone Translations: - [employer] [facility] [ Repository HYDROCODONE-ACETAMINOPHEN , HYDROCODONE-ACETAMINOPHEN ] Acetaminophen / [facility] (36527) Acetaminophen / oxyCODONE Vomiting Unknown, High 07-17-2011 Brittany dowling General Translations: [ - Health Syste m OXYCODONE-ACETAMINOPHEN, Rep ository OXYCODONE-ACETAMINOPHEN] Acetaminophen / oxyCODONE [facility] (20131) Codeine Translations: [ GI Upset, Vomiting Moderate, 11-25-2012 [facility] Surgical CODEINE, CODEINE] Moderate, - Associates Unknown, High (44644) estradiol / norethindrone Feels wired, Critical, 01-08-2017 [facility] muscles hurt, Critical - Group (33372) lip/mouth burn, feels like asthma flaring, nausea, dizziness Estradiol / Norethindrone Unknown [facility] (64678) ESTRADIOL-NORETHINDRONE Intolerance 10-26-2016 [facility] ACET Translations: [ - Health System ESTRADIOL-NORETHINDRONE Repo sitory ACET, ESTRADIOL-NORETHINDRONE ACET] famotidine Critical, 01-08-2017 [facility] (88593) Famotidine Translations: Other: See 07-07-2016 [facility] [ FAMOTIDINE (PF), Comments - Health Sy stem FAMOTIDINE (PF)] Repository Famotidine Unknown [facility] (30375) metFORMIN Translations: [ Other: See 10-28-2017 [facility] maria elena [facility] METFORMIN, METFORMIN] Comments - Health System Repository methIMAzole Hives Moderate, 11-25-2012 [facility] Surgical Moderate - Associates (07608) methIMAzole Translations: Hives 10-14-2005 [facility] [ METHIMAZOLE, - Health System METHIMAZOLE] Repository methylprednisoLONE Vomiting Critical, 01-08-2017 [facility] (63226) methylPREDNISolone Unknown [facility] (04693) METHYLPREDNISOLONE SODIUM Mental Status Unknown, High 01-22-2014 [facility] SUCC Translations: [ Change - Health System METHYLPREDNISOLONE SODIUM Re pository SUCC, METHYLPREDNISOLONE SODIUM SUCC] Nadolol wheezing, chest Moderate, 01-02-2013 [facility] Surgical tightness Moderate - Associates (24646) Medications Medication Name Sig Date Prescriber Location albuterol VENTOLIN HFA 108 (90 01-08-2017 - [facility]) MCG/ACT AERS 01-13-2017 (55221) ALBUTEROL SULFATE [id number] Noman Hernandez MD VENTOLIN HFA 108 (90 Base) 01-08-2017 - 01-13-2017 [facility] (14296) MCG/ACT AERS ALBUTEROL SULFATE [id number] Noman Hernandez MD VENTOLIN HFA 108 (90 Base) 01-08-2017 [facility] (75839) MCG/ACT AERS ALBUTEROL SULFATE [id number] 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 VENTOLIN HFA 108 (90 Base) 01-08-2017 - 01-13-2017 [facility] (34958) MCG/ACT AERS ALBUTEROL SULFATE [id number] Noman Hernandez MD VENTOLIN HFA 108 (90 Base) 01-08-2017 [facility] (42339) MCG/ACT AERS ALBUTEROL SULFATE [id number] Ayan Domi Zakia CHRONOMETER ASSEMBLER VENTOLIN HFA 108 (90 Base) 01-08-2017 - 01-13-2017 [facility] (13742) MCG/ACT AERS ALBUTEROL SULFATE [id number] Noman Hernandez MD VENTOLIN HFA 108 (90 Base) 01-08-2017 [facility] (23242) MCG/ACT AERS ALBUTEROL SULFATE [id number] Ayan Domi Zakia CHRONOMETER ASSEMBLER VENTOLIN HFA 108 (90 Base) 01-08-2017 [facility] (73724) MCG/ACT AERS ALBUTEROL SULFATE [id number] Ayan Duron Zakia CHRONOMETER ASSEMBLER VENTOLIN HFA 108 (90 Base) 01-08-2017 [facility] (87153) MCG/ACT AERS ALBUTEROL SULFATE [id number] Ayan Duron Roof CHRONOMETER ASSEMBLER Ventolin HFA 108 (90 Base) 06-03-2016 [facility] (29804) MCG/ACT Inhalation Aerosol Solution Refills: 0 Start : 03-Jun-2016 Active 8 GM Inhaler ALPRAZolam ALPRAZolam 1 MG 11-10-2012 - [place] Oral Tablet TAKE 1 01-13-2017 [facility] TABLET 3 TIMES (49697) DAILY NEEDED. Refills: 0 Start : 17-Sep-2015 Active Amoxicillin / amoxicillin-clavul 01-04-2020 - Hugo Herrera and [facility] Clavulanate anic acid 01-14-2020 (66728) (AUGMENTIN) 875-125 mg per tablet Indications: Bacterial sinusitis Take 1 tablet by mouth twice daily for 10 days. 20 tablet 0 01/04/2020 01/14/2020 Active Comment: Take 1 tablet by mouth twice daily for 10 days. Aspirin ASPIRIN 81 MG TABS One 03-30-2012 - --2013 [facility] tablet by mouth daily (38055 ) ASPIRIN [id number] Tabitha Benedict RN ASPIRIN 81 MG TABS One tablet 03-30-2012 - 11-20-2013 [facility] by mouth daily (72173 ) ASPIRIN [id number] Blair Canseco MD bazedoxifene / DUAVEE 0.45-20 MG TABS One 11-27-2016 - Michelle Sutton Estrogens, tablet by mouth daily 01-08-2017 Bryce HARRIS [facility] Conjugated ([facility]) CONJ (45743) ESTROGENS-BAZEDOXIFENE [id number] Michelle Wu MD DUAVEE 0.45-20 MG TABS One 11-27-2016 - [place] tablet by mouth daily 01-08-2017 [facility] CONJ (4469 1) ESTROGENS-BAZEDOXIFENE [id number] Ayan Zakia CHRONOMETER ASSEMBLER DUAVEE 0.45-20 MG TABS One 11-27-2016 Michelle Johansen [place] tablet by mouth daily Bryce HARRIS [facility] CONJ (37304) ESTROGENS-BAZEDOXIFENE [id number] Michelle Wu MD DUAVEE 0.45-20 MG TABS One 11-27-2016 - [place] tablet by mouth daily 01-08-2017 [facility] CONJ (4469 1) ESTROGENS-BAZEDOXIFENE [id number] Ayan Zakia CHRONOMETER ASSEMBLER DUAVEE 0.45-20 MG TABS One 11-27-2016 Michelle Johansen [place] tablet by mouth daily Bryce HARRIS [facility] CONJ (85133) ESTROGENS-BAZEDOXIFENE [id number] Michelle Wu MD DUAVEE 0.45-20 MG TABS One 11-27-2016 - [place] tablet by mouth daily 01-08-2017 [facility] CONJ (4469 1) ESTROGENS-BAZEDOXIFENE [id number] Ayan [facility] CHRONOMETER ASSEMBLER DUAVEE 0.45-20 MG TABS One 11-27-2016 Michelle E [place] tablet by mouth daily Bryce HARRIS [facility] CONJ (27970) ESTROGENS-BAZEDOXIFENE [id number] Michelle Wu MD DUAVEE 0.45-20 MG TABS One 11-27-2016 Michelle E [place] tablet by mouth daily Bryce HARRIS [facility] CONJ (81437) ESTROGENS-BAZEDOXIFENE [id number] Michelle Wu MD DUAVEE 0.45-20 MG TABS One 11-27-2016 - [place] tablet by mouth daily 01-08-2017 [facility] CONJ (4469 1) ESTROGENS-BAZEDOXIFENE [id number] [facility] CHRONOMETER ASSEMBLER DUAVEE 0.45-20 MG TABS One 11-27-2016 - [place] tablet by mouth daily 01-08-2017 [facility] CONJ (4469 1) ESTROGENS-BAZEDOXIFENE [id number] [facility] CHRONOMETER ASSEMBLER DUAVEE 0.45-20 MG TABS One 11-27-2016 Michelle E [place] tablet by mouth daily Bryce HARRIS [facility] CONJ (20064) ESTROGENS-BAZEDOXIFENE [id number] Michelle Wu MD DUAVEE 0.45-20 MG TABS One 11-27-2016 Michelle E [place] tablet by mouth daily Bryce HARRIS [facility] CONJ (78301) ESTROGENS-BAZEDOXIFENE [id number] Michelle Wu MD DUAVEE 0.45-20 MG TABS One 11-27-2016 Michelle E [place] tablet by mouth daily Bryce HARRIS [facility] CONJ (35211) ESTROGENS-BAZEDOXIFENE [id number] Michelle Wu MD DUAVEE 0.45-20 MG TABS One 11-27-2016 Michelle E [place] tablet by mouth daily Bryce HARRIS [facility] CONJ (69558) ESTROGENS-BAZEDOXIFENE [id number] Michelle Wu MD Betaxolol BETAXOLOL HCL 10 MG TABS 01-08-2017 - 01-13-2017 [place] [facility] take half a pill by mouth (4 4691) daily BETAXOLOL HCL [id number] Noman Hernandez MD BETAXOLOL HCL 10 MG 03-07-2013 - Pati Richardson [facility] Women's TABS one half (1/2) 01-08-2017 [facility]REG[facility] (18528) tablet by mouth daily BETAXOLOL HCL [id number] Pati Richardson PA-C BETAXOLOL HCL 10 MG 03-07-2013 - [place] [facility] TABS 5mg daily 03-07-2013 Care (01192) BETAXOLOL HCL [id number] Tabitha Benedict RN Blood-Glucose Meter Blood-Glucose Meter 10-22-2017 [facility] (FREESTYLE LITE METER) (FREESTYLE LITE METER) (69149) monitoring kit monitoring kit 1 Each as needed. 1 Each 0 10/22/2017 Active Blood-Glucose Meter (FREESTYLE LITE 10-22-2017 [facility] (19518) METER) monitoring kit 1 Each as needed. 1 Each 0 10/22/2017 Active Blood-Glucose Meter (FREESTYLE LITE 10-22-2017 [facility] (22749) METER) monitoring kit 1 Each as needed. 1 Each 0 10/22/2017 Active Blood-Glucose Meter (FREESTYLE LITE 10-22-2017 [facility] (76214) METER) monitoring kit 1 Each as needed. 1 Each 0 10/22/2017 Active Blood-Glucose Meter (FREESTYLE LITE 10-22-2017 [facility] (40307) METER) monitoring kit 1 Each as needed. 1 Each 0 10/22/2017 Active Blood-Glucose Meter (FREESTYLE LITE 10-22-2017 [facility] (56796[facility]) monitoring kit 1 Each as needed. 1 Each 0 10/22/2017 Active Blood-Glucose Meter (FREESTYLE LITE 10-22-2017 [facility] (00649) METER) monitoring kit 1 Each as needed. 1 Each 0 10/22/2017 Active Blood-Glucose Meter (FREESTYLE LITE 10-22-2017 [facility] (58073) METER) monitoring kit 1 Each as needed. 1 Each 0 10/22/2017 Active Blood-Glucose Meter (FREESTYLE LITE 10-22-2017 [facility] (67408) METER) monitoring kit 1 Each as needed. 1 Each 0 10/22/2017 Active Blood-Glucose Meter (FREESTYLE LITE 10-22-2017 [facility] (77410) METER) monitoring kit 1 Each as needed. 1 Each 0 10/22/2017 Active Blood-Glucose Meter (FREESTYLE LITE 10-22-2017 [facility] (95884) METER) monitoring kit 1 Each as needed. 1 Each 0 10/22/2017 Active Blood-Glucose Meter (FREESTYLE LITE 10-22-2017 [facility] (97624) METER) monitoring kit 1 Each as needed. 1 Each 0 10/22/2017 Active Blood-Glucose Meter (FREESTYLE LITE 10-22-[facility] (17561[facility]) monitoring kit 1 Each as needed. 1 Each 0 10/22/2017 Active Blood-Glucose Meter (FREESTYLE LITE 10-13-2017 [facility] (69866) METER) monitoring kit 1 Each as needed. 1 Each 0 10/13/2017 Active Blood-Glucose Meter (FREESTYLE LITE 10-13-2017 [facility] (70924) METER) monitoring kit 1 Each as needed. 1 Each 0 10/13/2017 Active Blood-Glucose Meter (FREESTYLE LITE 10-13-2017 [facility] (01267) METER) monitoring kit 1 Each as needed. 1 Each 0 10/13/2017 Active Blood-Glucose Meter (FREESTYLE LITE 10-13-2017 [facility] (11838) METER) monitoring kit 1 Each as needed. 1 Each 0 10/13/2017 Active Blood-Glucose Meter (FREESTYLE LITE 10-13-2017 [facility] (23629) METER) monitoring kit 1 Each as needed. 1 Each 0 10/13/2017 Active Blood-Glucose Meter (FREESTYLE LITE 10-13-2017 [facility] (53640) METER) monitoring kit 1 Each as needed. 1 Each 0 10/13/2017 Active Blood-Glucose Meter (FREESTYLE LITE 10-13-2017 [facility] (08088) METER) monitoring kit 1 Each as needed. 1 Each 0 10/13/2017 Active Blood-Glucose Meter (FREESTYLE LITE 10-13-2017 [facility] (65715) METER) monitoring kit 1 Each as needed. 1 Each 0 10/13/2017 Active Blood-Glucose Meter (FREESTYLE LITE 10-13-2017 [facility] (24330) METER) monitoring kit 1 Each as needed. 1 Each 0 10/13/2017 Active Blood-Glucose Meter (FREESTYLE LITE 10-13-2017 [facility] (43177) METER) monitoring kit 1 Each as needed. 1 Each 0 10/13/2017 Active Blood-Glucose Meter (FREESTYLE LITE 10-13-2017 [facility] (17348) METER) monitoring kit 1 Each as needed. 1 Each 0 10/13/2017 Active Blood-Glucose Meter (FREESTYLE LITE 10-13-2017 [facility] (07343) METER) monitoring kit 1 Each as needed. 1 Each 0 10/13/2017 Active Blood-Glucose Meter (FREESTYLE LITE 10-13-2017 [facility] (32740) METER) monitoring kit 1 Each as needed. 1 Each 0 10/13/2017 Active Comment: 1 Each as needed. CPAP CPAP Indications: ANDRESSA 02-01-2020 [facility] Cristo Nava [facility] (76003) (obstructive sleep apnea) Initiate Auto PAP @ 5-20 cm of water with humidification. Mask (per patient preference) optional chin strap (if indicated) , filters, tubing, humidifier and lifetime supplies. 1 Device 0 02/01/2020 Active CPAP Indications: ANDRESSA (obstructive 02-01-2020 [facility] (65770) sleep apnea) Initiate Auto PAP @ 5-20 cm of water with humidification. Mask (per patient preference) optional chin strap (if indicated) , filters, tubing, humidifier and lifetime supplies. 1 Device 0 02/01/2020 Active CPAP Indications: ANDRESSA (obstructive 02-01-2020 Hugo taylor [facility] (40896) sleep apnea) Initiate Auto PAP @ 5-20 [...] CD 120 MG 01-02-2013 - [place] [facility] [id number] One tablet 03-30-2013 RN Care (4 4691) by mouth daily DILTIAZEM HCL COATED BEADS [id number] Blair Canseco MD CARDIZEM CD 120 MG 01-02-2013 [place] [facility] [id number] One tablet Care (23177 ) by mouth daily DILTIAZEM HCL COATED BEADS [id number] Blair Canseco MD CARDIZEM CD 120 MG 01-02-2013 - [facility] omen's [id number] One tablet 03-30-2013 Care (88847 ) by mouth daily DILTIAZEM HCL COATED BEADS 80456663913 Tabitha Benedict RN CARDIZEM CD 120 MG 01-02-2013 - [facility] omen's [id number] One tablet 03-30-2013 Care (36737 ) by mouth daily DILTIAZEM HCL COATED BEADS 11413047057 Tabitha Benedict RN CARDIZEM CD 120 MG 01-02-2013 [place] [facility] [id number] One tablet Care (19127 ) by mouth daily DILTIAZEM HCL COATED BEADS 03126133232 Blair ROJASM CD 120 MG 01-02-2013 - [place] [facility] [id number] One tablet 03-30-2013 Care (93716 ) by mouth daily DILTIAZEM HCL COATED BEADS 81265470926 Tabitha Benedict RN CARDIZEM CD 120 MG 01-02-2013 [place] [facility] [id number] One tablet Care (66809 ) by mouth daily DILTIAZEM HCL COATED BEADS 22972564084 Blair Canseco MD CARDIZEM CD 120 MG 01-02-2013 [place] [facility] [id number] One tablet Care (39839 ) by mouth daily DILTIAZEM HCL COATED BEADS 07429317294 Blair Canseco MD CARDIZEM CD 120 MG 01-02-2013 - [place] W [facility] [id number]-IRP One tablet 03-30-2013 Care (18144 ) by mouth daily DILTIAZEM HCL COATED BEADS 60142496649 Tabitha Benedict RN CARDIZEM CD 120 MG 01-02-2013 [place] [facility] [id number] One tablet Care (14419 ) by mouth daily DILTIAZEM HCL COATED BEADS 58170302845 Blair Canseco MD CARDIZEM CD 120 MG 01-02-2013 - [place] W [facility] [id number] One tablet 03-30-2013 Care (67687 ) by mouth daily DILTIAZEM HCL COATED BEADS 70282522477 Tabitha Benedict RN CARDIZEM CD 120 MG 01-02-2013 - [place] [facility] [id number] One tablet 03-30-2013 Care (83220 ) by mouth daily DILTIAZEM HCL COATED BEADS 41340339600 Tabitha Benedict RN CARDIZEM CD 120 MG 01-02-2013 [place] [facility] [id number]-[id number] One tablet Care (82309 ) by mouth daily DILTIAZEM HCL COATED BEADS 95862566396 Blair Canseco MD CARDIZEM CD 120 MG 01-02-2013 - [place] omen's [id number] One tablet 03-30-2013 Care (05231 ) by mouth daily DILTIAZEM HCL COATED BEADS 23302959190 Tabitha Benedict RN CARDIZEM CD 120 MG 01-02-2013 [place] Women[facility] [id number] One tablet Care (87141 ) by mouth daily DILTIAZEM HCL COATED BEADS 52674102461 Blair Canseco MD CARDIZEM CD 120 MG 01-02-2013 - [facility] omen's [id number] One tablet 03-30-2013 Care (40332 ) by mouth daily DILTIAZEM HCL COATED BEADS 27743255074 HONORIO FordeM CD 120 MG 01-02-2013 [place] RN [place] Women[facility] [id number] One tablet Care (37349 ) by mouth daily DILTIAZEM HCL COATED BEADS 73995992338 Blair Canseco MD Estradiol CLIMARA 0.0375 MG/24HR PTWK 11-16-2016 [place] [facility] Apply 1 patch as directed once (68589) each week ESTRADIOL [id number] Ayan Koehler NP ESTRADIOL 0.025 MG/24HR 11-16-2016 Michelle Wu MD [place] [facility] PTWK take as directed (68633) ESTRADIOL [id number] Michelle Wu MD CLIMARA 0.0375 MG/24HR 11-16-2016 [place] [facility] PTWK Apply 1 patch as (46767) directed once each week ESTRADIOL [id number] Ayan Koehler NP CLIMARA 0.0375 MG/24HR 11-16-2016 [place] [facility] PTWK Apply 1 patch as (75146) directed once each week ESTRADIOL [id number] Ayan Duron Zakia CHRONOMETER ASSEMBLER CLIMARA 0.0375 MG/24HR 11-16-2016 [place] [facility] PTWK Apply 1 patch as (36770) directed once each week ESTRADIOL [id number] Ayan Duron Roof CHRONOMETER ASSEMBLER CLIMARA 0.0375 MG/24HR 11-16-2016 [place] [facility] PTWK Apply 1 patch as (19867) directed once each week ESTRADIOL [id number] Ayan Duron Roof CHRONOMETER ASSEMBLER CLIMARA 0.0375 MG/24HR 11-16-2016 [place] [facility] PTWK Apply 1 patch as (90394) directed once each week ESTRADIOL 25277288361 Ayan Duron Zakia CHRONOMETER ASSEMBLER famotidine PEPCID 20 MG TABS One 01-08-2017 - [facility] tablet by mouth daily 01-13-2017 Group (49403) FAMOTIDINE [id number] Ayan Zakia CHRONOMETER ASSEMBLER levothyroxine SYNTHROID 137 mcg 12-11-2019 Antonieta Berkowitz on tablet Indications: (Pa-C) [place] [facility] Postablative (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 30 tablet 5 06/27/2019 12/11/2019 Discontinued SYNTHROID 137 MCG TABS 11-16-2016 Lizabeth King [place] [facility] Take one tablet on Wednesday Care ( 55872) LEVOTHYROXINE SODIUM [id number] Michelle Wu MD SYNTHROID 137 MCG TABS 11-16-2016 Lizabeth [place] Women[facility] Take one tablet on Wednesday Care ( 03939) LEVOTHYROXINE SODIUM [id number] Michelle Wu MD SYNTHROID 137 MCG TABS 11-16-2016 [place] Women[facility] Take one tablet on [place] [facility] ( 13672) LEVOTHYROXINE SODIUM 12566172037 Michelle Wu MD SYNTHROID 137 MCG TABS 11-16-2016 [place] Women[facility] Take one tablet on [facility] ( 27481) LEVOTHYROXINE SODIUM [id number] Michelle Wu MD SYNTHROID 137 MCG TABS 11-16-2016 [place] Women[facility] Take one tablet on [place] [facility] ( 46713) LEVOTHYROXINE SODIUM [id number] Michelle Wu MD SYNTHROID 137 MCG TABS 11-16-2016 [place] [facility] Take one tablet on [place] [facility] ( 19233) LEVOTHYROXINE SODIUM [id number] Michelle Wu MD SYNTHROID 137 MCG TABS 11-16-2016 [place] [facility] Take one tablet on [place] [facility] ( 75560) LEVOTHYROXINE SODIUM [id number] Michelle Wu MD SYNTHROID 137 MCG TABS 11-16-2016 [place] Women[facility] Take one tablet on [place] [facility] ( 84876) LEVOTHYROXINE SODIUM [id number] Michelle Wu MD SYNTHROID 137 MCG TABS 04-28-2016 [place] [facility] Take one tablet on [facility] ( 63554) LEVOTHYROXINE SODIUM [id number] Michelle Wu MD Levothyroxine Sodium 125 05-25-2013 [place] [facility] MCG Oral Tablet Pt takes Care (4 4691) 1 tablet Wednesday through Wednesday. Refills: 0 Start : 22-Oct-2016 Active SYNTHROID 125 MCG TABS 05-25-2013 [place] [facility] One tablet by mouth daily Care ( 29389) LEVOTHYROXINE SODIUM [id number] RUKHSANA BakerC SYNTHROID 125 MCG TABS 05-25-2013 [place] [facility] One tablet by mouth daily Care ( 94273) LEVOTHYROXINE SODIUM [id number] Pati Richardson PA-C SYNTHROID 125 MCG TABS 05-25-2013 [place] [facility] One tablet by mouth daily Care ( 14006) LEVOTHYROXINE SODIUM [id number] Pati Richardson PA-C SYNTHROID 125 MCG TABS 05-25-2013 [place] [facility] One tablet by mouth daily Care ( 65961) LEVOTHYROXINE SODIUM [id number] Pati Richardson PA-C SYNTHROID 125 MCG TABS 05-25-2013 [place] [facility] One tablet by mouth daily Care ( 42673) LEVOTHYROXINE SODIUM [id number] Pati Richardson PA-C SYNTHROID 125 MCG TABS 05-25-2013 [place] [facility] One tablet by mouth daily Care ( 71285) LEVOTHYROXINE SODIUM [id number] Pati Richardson PA-C SYNTHROID 125 MCG TABS 05-25-2013 [place] [facility] One tablet by mouth daily Care ( 50977) LEVOTHYROXINE SODIUM [id number] Pati Richardson PA-C SYNTHROID 125 MCG TABS 05-25-2013 [place] [facility] One tablet by mouth daily Care ( 01218) LEVOTHYROXINE SODIUM [id number] Pati Richardson PA-C SYNTHROID 175 MCG TABS 01-11-2013 [place] Women[facility] days a week Care (446 91) LEVOTHYROXINE SODIUM [id number] Pati Richardson PA-C SYNTHROID 175 MCG TABS 5 01-11-2013 [place] Women[facility] days a week Care (446 91) LEVOTHYROXINE SODIUM [id number] Pati Richardson PA-C SYNTHROID 175 MCG TABS 5 01-11-2013 [place] [facility] days a week Care (446 91) LEVOTHYROXINE SODIUM [id number] Pati Richardson PA-C SYNTHROID 175 MCG TABS 5 01-11-2013 [place] Women[facility] days a week Care (446 91) LEVOTHYROXINE SODIUM [id number] Pati Richardson PA-C SYNTHROID 175 MCG TABS 5 01-11-2013 [place] Women[facility] days a week Care (446 91) LEVOTHYROXINE SODIUM [id number] Pati Richardson PA-C SYNTHROID 175 MCG TABS 5 01-11-2013 [place] [facility] days a week Care (446 91) LEVOTHYROXINE SODIUM [id number] Pati Richardson PA-C SYNTHROID 175 MCG TABS 5 01-11-2013 [place] Women[facility] days a week Care (446 91) LEVOTHYROXINE SODIUM [id number] Pati Richardson PA-C SYNTHROID 175 MCG TABS 5 01-11-2013 [place] Women[facility] days a week Care (446 91) LEVOTHYROXINE SODIUM [id number] Pati Richardson PA-C LEVOTHYROXINE SODIUM 150 11-10-2012 - [place] [facility] MCG TABS One tablet by 11-25-2012 Care (446 91) mouth on Mondays and Fridays LEVOTHYROXINE SODIUM [id number] Stephanie Torres RN SYNTHROID 175 MCG TABS 5 11-10-2012 [place] [facility] days a week Care (446 91) LEVOTHYROXINE SODIUM [id number] Pati Richardson PA-C SYNTHROID 175 MCG TABS 11-10-2012 [place] [facility] One tablet by mouth daily Care ( 04277) LEVOTHYROXINE SODIUM [id number] Stephanie Torres RN SYNTHROID 175 MCG TABS 11-10-2012 [place] [facility] One tablet by mouth daily Care ( 53736) LEVOTHYROXINE SODIUM [id number] Stephanie Torres RN SYNTHROID 175 MCG TABS 11-10-2012 [place] [facility] One tablet by mouth daily Care ( 23748) LEVOTHYROXINE SODIUM [id number] Stephanie Torres RN SYNTHROID 175 MCG TABS 11-10-2012 [place] [facility] One tablet by mouth daily Care ( 23539) LEVOTHYROXINE SODIUM [id number] Stephanie Torres RN SYNTHROID 175 MCG TABS 11-10-2012 [place] [facility] One tablet by mouth daily Care ( 26322) LEVOTHYROXINE SODIUM [id number] Stephanie Torres RN SYNTHROID 175 MCG TABS 11-10-2012 [place] [facility] One tablet by mouth daily Care ( 11977) LEVOTHYROXINE SODIUM [id number] Stephanie Torres RN SYNTHROID 175 MCG TABS 11-10-2012 [place] [facility] One tablet by mouth daily Care ( 57033) LEVOTHYROXINE SODIUM [id number] Stephanie Torres RN SYNTHROID 175 MCG TABS 11-10-2012 [place] [facility] One tablet by mouth daily Care ( 62643) LEVOTHYROXINE SODIUM [id number] Stephanie Torres RN Comment: Take by mouth 8 tabs daily / weekly Take 1 tablet by mouth once daily. Meclizine MECLIZINE HCL 25 MG 11-10-2012 - [place] Women's TABS One tablet by 11-25-2012 Care (440 38) mouth three times daily As needed MECLIZINE HCL [id number] Blair Canseco MD Nadolol NADOLOL 20 MG TABS One 12-08-2012 - Stephanie [place] Women[facility] tablet by mouth daily 01-02-2013 RN Care ( 93242) NADOLOL [id number] Blair Canseco MD Nitroglycerin NITROGLYCERIN 0.4 03-30-2013 [facility] Surgi satnam MG/HR PT24 1 tablet Associat es (78537) under tongue every 5 min up to 3 X NITROGLYCERIN [id number] Tabitha Benedict, HONORIO Omeprazole OMEPRAZOLE 40 MG CPDR 11-10-2012 - Damon [facility] Women[facility] One tablet by mouth 11-25-2012 [facility] (44 691) twice daily OMEPRAZOLE [id number] Blair Canseco MD PARoxetine PAXIL 10 MG TABS One 01-08-2017 - [facility] tablet by mouth daily 01-13-2017 (06391 ) PAROXETINE HCL [id number] Ayan Koehler NP PAXIL 10 MG TABS One tablet by 01-08-2017 - 01-13-2017 [facility] (02877) mouth daily PAROXETINE HCL [id number] Ayan Koehler NP RA Natural Magnesium RA Natural Magnesium 05-27-2017 [facility] 250 MG Oral Tablet 250 MG Oral Tablet [facility] Refills: 0 Start : (38201) 27-May-2017 Active Spironolactone SPIRONOLACTONE 25 MG 11-10-2012 - [place] [facility] Women's TABS One tablet by 11-25-2012 [facility] (446 91) mouth daily SPIRONOLACTONE [id number] Blair Canseco MD Problems Active Problems Category Problem Name Status Date Location Anxiety disorders Anxiety Active 07-10-2013 [facility] - [facility] (62253) Attention-deficit Attention deficit Active 11-08-2014 [facility]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, - (21554) behavior disorders combined type Cardiac dysrhythmias Palpitations Active 11-10-2012 [facility] (88019) Chronic obstructive Simple chronic bronchitis Active 12-02-19 18 [facility] pulmonary disease and - (21690 ) bronchiectasis Complications of Postprocedural Active 04-06-2006 [facility] procedures or hypothyroidism - [facility] medical care (20842) Conditions associated Dizziness and giddiness Active 10-13-19 18 [facility] with dizziness or - System (00 000) vertigo Esophageal disorders Gastroesophageal reflux Active 7 [facility] Surgical disease - Associates (299 91) Essential hypertension Hypertensive disorder Active 3 [facility] Surgical - Associates (446 91) Heart valve disorders Mitral valve prolapse Active 02-23-2018 [facility] - (59962) Malaise and fatigue Fatigue Active 11-10-2012 [facility] Surg ical - Associates (446 91) Menopausal disorders Menopausal and female Active 12-13-2015 [place] climacteric states - Women's C are (22823) Mood disorders Recurrent major Active 07-09-2015 [facility] depression in partial - (40579 ) remission Nonspecific chest pain Chest pain Active 11-25-2012 [facility] S urgical - Associates (446 91) Nutritional deficiencies Decreased vitamin D Active 4 [facility] (03717) Other connective tissue Swelling of bilateral Active [facility] disease lower limbs (48146) Other gastrointestinal Irritable bowel syndrome Active 2017 [facility] disorders with diarrhea - (48406) Other hematologic Increased hemoglobin Active [facility] conditions (82300) Other lower respiratory Hypoxia Active [facility] disease [facility] (84440) Other nervous system Burning sensation of skin Active 018 [facility] disorders - (16405) Other non-traumatic Multiple joint pain Active [facility] (94808) Other nutritional; Body mass index (BMI) Active 08-22-2014 [facility] Surgical endocrine; and metabolic 32.0-32.9, adult - Associates (50493) disorders Other nutritional; Body mass index (BMI) Active 11-20-2013 [place] endocrine; and metabolic 37.0-37.9, adult - - [facility] disorders 09-28-2014 (07696) - Other nutritional; Body mass index 30+ - Active [facility] endocrine; and metabolic obesity [place] [facility] disorders (67621) Other screening for Electrocardiogram Active 11-25-2012 [facility] Surgical suspected conditions abnormal - Associa inocencio (72119) (not mental disorders or infectious disease) Other skin disorders Eruption Active [facility] (90116) Other upper respiratory Bacterial sinusitis Active [facility] infections (83248) Residual codes; Obstructive sleep apnea Active 01-24-2020 [facility] unclassified syndrome - (57511) Residual codes; Menopause present Active 11-16-2016 [facility] Ramila gical unclassified - Associates (44 91) Screening and history of Tobacco use and exposure Active [facility] mental health and - finding (84767) substance abuse codes Substance-related Tobacco dependence Active 11-10-2012 [facility] Surgical disorders syndrome - Associates (449 91) Systemic lupus Systemic lupus Active 02-14-2018 [facility] erythematosus and erythematosus - [facility] connective tissue (72098) disorders Thyroid disorders Hyperthyroidism Active 01-11-2013 [facility] Ramila gical - Associates (445 91) Unclassified Patient encounter status Active 06-20-2018 [facility] - (03122) Unclassified Cancer cervix screening Active 06-20-2018 [facility] status - (28148) Unclassified Screening for malignant Active 01-13-2017 [facility] Surgical neoplasm of colon - Associates (15632) Unclassified Procedure carried out on Active 12-14-2016 [place] subject - [facility] (90339) Unclassified Gynecologic examination Active 12-14-2016 [place] [facility] (90236) Unclassified Screening for malignant Active 12-14-2016 [place] neoplasm of cervix - Women's C are (56318) Unclassified Treatment not available Active [facility] (09888) Past or Other Problems Category Problem Name Status Date Location Abdominal pain Acute pain in female Completed 11-27-2016 - [facility] Women's pelvis Care (81291) Diabetes mellitus Impaired glucose Completed 09-06-2014 - [facility] without complication tolerance (30649) Diseases of mouth; Sore mouth Completed 02-16-2018 - [facility] excluding dental (47905) Immunizations and Encounter for Completed 12-14-2016 - 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 (59065 ) Other circulatory Elevated Completed 09-06-2014 - [facility] disease blood-pressure reading (5766 5) without diagnosis of hypertension Other circulatory H/O: heart disorder Completed 11-10-2012 - [facility] Surgical disease Associates (229 91) Other lower Dyspnea Completed 11-10-2012 - [facility] Surgical respiratory disease Associat es (57417) Residual codes; Difficulty sleeping Completed 02-16-2018 - [facility] unclassified (17905) Residual codes; Edema Completed 11-10-2012 - [facility] Surgical unclassified Associates (610 87) Residual codes; Family history of Completed [facility] Ramila gical unclassified ischemic heart disease Assoc iates (70433) and other diseases of the circulatory system NEGATED: Highlighted Disease Completed [facility] has not Group[facility] occurred!Residual (93009) codes; unclassified Residual codes; FH: Hypertension Completed [facility] Surg ical unclassified Associates (652 82) Unclassified Drug therapy finding Completed [facility] (90192) Unclassified History of clinical Completed [facility] finding in subject Group-[facility] renee (52615) Results Result Name Value Range Unit Interpretation Flag Date Location progress on 2020-01 PROGRESS HNO ID: [id number] Normal 02-05-2020 [facility] Author: Marlin Mohamud [place] ([id number]) Service: ? Author Type: Nurse Practitioner Type: Progress Notes Filed: 02/05/2020 5:04 PM Note Text: This is an Express Care eVisit note for Jazlyn Garzon eVisit/Questionnaire reviewed The chief complaint for the visit - Patient presents with: Eye Problem Recommendations/Treatment plan - See My Chart Message to mela spring Total time spent: < 5 minutes. Marlin Mohamud APRN.BLACK TOP MACHINE OPERATOR PROGRESS HNO ID: [id number] Normal 02-05-2020 [facility] Author: Richa Rubin [place] ([id number]) Service: ? Author Type: Physician Type: Progress Notes Filed: 02/05/2020 4:29 PM Note Text: [facility] SECTION OF REGIONAL CARDIOLOGY Cardiology ([place] ([facility] [address] [facility] [facility] [id number] OUTPATIENT VISIT DATE 02/04/2020 PRIMARY CARE PHYSICIAN: Hugo Nava MD [address] [place] [address] REFERRING PHYSICIAN: Hguo Nava MD [address] [facility] [address] CHIEF COMPLAINT: Inappropriate sinus tachycardia and chest [...] Family history: Patient's father had his first SD at age 50. He had stents at [...] stroke - Colon Cancer Father age 64 SD - Diabetes Father Type 2 - Hypertension Father - Coronary Artery Disease Father Hx of SD - Thyroid Sister hx of parathyroid disease/ [...] the years. Had a recent admission to [facility] emergency room on that hospita l [...] back in 3 months for repeat evaluation. iRcha Rubin MD cnov on 2020-02-05 CNOV Office Visit (CAWSTR) Normal 02-05-20 20 [place] [facility] JAZLYN GARZON ([id number]) 1965 [place] Date Time Provider Department (41485) 02/05/20 2:00 PM RICHA RUBINWS During your visit today, we recorded the following informati on about you: Pulse Respiration Blood pressure Weight 100/minute 16/minute 142/84 91.6 kg Richa Rubin MD 02/05/2020 4:29 PM Signed [facility]AL CARDIOLOGY Cardiology ([facility]) [address] [facility] [address] OUTPATIENT VISIT DATE 02/04/2020 PRIMARY CARE PHYSICIAN: Hugo Nava MD [address] [place] [address] REFERRING PHYSICIAN: Hugo Nava MD [address] [facility] [address] CHIEF COMPLAINT: Inappropriate sinus tachycardia and chest [...] stroke - Colon Cancer Father age 64 SD - Diabetes Father Type 2 - Hypertension Father - Coronary Artery Disease Father Hx of SD - Thyroid Sister hx of parathyroid disease/ [...] the years. Had a recent admission to [facility] emergency room on that hospital admission, [...] Richa Rubin MD Referring Provider: HUGO NAVA [[id number]] Allergies As of Date: 02/05/2020 Noted Allergy [...] [R07.89] Order(s):CONSULT TO CARDIOLOGY [9004] Order #: [id number] : 1 Prescriptions as of 02/05/2020 Sig: [...] 02/05/20 progress on 2020-01 PROGRESS HNO ID: [id number] Normal 02-01-2020 [facility] Author: Hugo Nava [place] ([id number]) Service: ? Author Type: Physician Type: Progress [...] stroke - Colon Cancer Father age 64 SD - Diabetes Father Type 2 - Hypertension Father - Coronary Artery Disease Father Hx of SD - Thyroid Sister hx of parathyroid disease/ [...] prn. progress on 2020-01 PROGRESS HNO ID: [id number] Normal 01-30-2020 [place] Author: Ha Ortiz [facility] Service: ? [place] Author Type: Physician ([id number]) Type: Progress Notes Filed: 01/30/2020 1:44 PM [...] stroke - Colon Cancer Father age 64 SD - Diabetes Father Type 2 - Hypertension Father - Coronary Artery Disease Father Hx of SD - Thyroid Sister hx of parathyroid disease/ [...] Urine <=45.0 ug/d 48.8 (H) Cortisol ug/g Clinical Studies Specialist, Ur (UFRCRT) ug/g SUPERVISOR INSECTICIDE 33.64 Free Cortisol UR, Interpretation SEE NOTE [...] 324 ug/d 251 Epinephrine, Ur ratio to SUPERVISOR INSECTICIDE 0 - 20 ug/g SUPERVISOR INSECTICIDE 6 Norepinephrine, Ur ratio to SUPERVISOR INSECTICIDE 0 - 45 ug/g SUPERVISOR INSECTICIDE 46 (H) Dopamine, Ur ratio to SUPERVISOR INSECTICIDE 0 - 250 ug/g SUPERVISOR INSECTICIDE 194 Catecholamines Interpretation SEE NOTE Epinephrine, Ur [...] ug/d 46.3 (H) 48.8 (H) Cortisol ug/g Clinical Studies Specialist, Ur (UFRCRT) ug/g SUPERVISOR INSECTICIDE 32.74 33.64 Free Cortisol UR, Interpretation SEE [...] 2.3 Percent free calculation not provided by [employer]. Testosterone Free 0.06 - 0.92 ng/dL 8.8 [...] Tryptase <8.4 ug/L 7.2 cnpn on 2020-01-29 [facility]) Normal 01-29-2020 [place] JAZLYN Jones ([id number]) 1965 F [facility] Time Provider Department (89464) 01/29/20 HUGO NAVA During your visit today, we recorded the following informati on about you: Hugo Nava MD 01/29/2020 12:47 PM Signed Let her know [place] sleep lab contacted us. Even the the doctor reading it felt she should be treated w ith cpap, her insurance if refusing to cover at her level. We could have her see a sleep doc if she is willing. Sudha Joesph MARRERO 01/29/2020 1:34 PM Signed [place] message sent to patient. Allergies As of [...] Hives Date Reviewed: 08/21/2019 Reviewed by: Ofe ([facility]) Yoel - Fully Assessed Reason for [...] PINK LPN on 01/29/20 cnpn on 2020-01-11 [facility] (F[facility]) Normal 01-11-2020 [place] JAZLYN Jones ([id number]) 1965 [facility] Date Time Provider Department (97457) 01/11/20 Antonieta CEJA ([place]IO) [facility] During your visit today, we recorded the following informati on about you: Darlene Donato LPN 01/11/2020 8:21 AM Signed Michelle from [facility] Sleep Lab satnam ling patient is [...] most recent sleep study. All faxed to [facility] S leep lab. Allergies As of [...] Hives Date Reviewed: 08/21/2019 Reviewed by: Ofe ([facility]) Yoel - Fully Assessed Reason for [...] 01/11/20 progress on 2019-12 PROGRESS HNO ID: [id number] Normal 01-04-2020 [facility] Author: Hugo Nava [place] ([id number]) Service: ? Author Type: Physician Type: Progress [...] stroke - Colon Cancer Father age 64 SD - Diabetes Father Type 2 - Hypertension Father - Coronary Artery Disease Father Hx of SD - Thyroid Sister hx of parathyroid disease/ [...] more than 50% of the t otal ehgt-ur-nxox time of the visit in counseling / coordination of care. obsolete on 2019-12 OBSOLETE Refill (ENDOSO) Normal 12-31-2019 Soy cortez [facility] FLORAJAZLYN ([id number]) 1965 [facility] Date Time Provider Department (68340) 12/31/19 KARO CALLAHANO During your visit today, [...] up thank you. Patient is seen in [place], I do not have the pyote schedulers pool. Mague Buck Pss 01/17/2020 10:07 [...] Hives Date Reviewed: 08/21/2019 Reviewed by: Ofe ([facility]) Yoel - Fully Assessed Reason for [...] on 2019-12-27 [facility] Telephone (FAMPWS) Normal 12-27-2019 [place] JAZLYN GARZON ([id number]) 1965 [facility] Date Time Provider Department (74133) 12/27/19 HUGO NAVA During your visit today, we recorded the following informati on about you: Hugo Nava MD 12/27/2019 9:56 AM Signed 1. Tell her happy birthday 2. Let her know her sleep test is inconclusive. They want us to do an inlab test. Will need preprocedure covid test if done at [facility] Shakir Andino LPN 12/27/2019 2:16 PM Signed TC to pt, left detailed mess age with provider instructions on secure identified voicemail. Schedulers please assist pt with scheduling inlab sleep stud y. [facility] 3:23 PM Signed Patient has test scheduled at [facility] Shakir Andino LPN 01/05/2020 3:42 PM Signed Order printed and faxed to [facility]. Shakir Andino LPN Allergies As of [...] 3] Other Visit Diagnosis:Hypoxia [R09.02] Order(s):POLYSOMNOGRAM (PSG) [[id number]] Order #: [id number] F UTURE PRE-PROCEDURE AND PRE-OPERATIVE COVID [SQPOCOVD] Order #: [id number] FUTURE Prescriptions as of 12/27/2019 Sig: SYNTHROID [...] on 01/05/20 No panel information on 2019-12-26 Bulldozer Engineer study) or an alternative 0 12-26-2019 [facility] (17904) hypopnea sensor (diagnostic study). The duration of Bulldozer Engineer baseline using nasal pressure 12-26-2019 [facility] (94217) (diagnostic study), PAP device flow (titration Bulldozer Engineer Hypopnea definition: The peak 12-26-2019 [facility] (51586) signal excursions drop by =30% of pre-event Bulldozer Engineer duration of the >90% drop in 12-26-2019 [facility] ([facility]) signal excursion is =10 seconds. Bulldozer Engineer (titration study) or an [facility] ([facility]) alternative apnea sensor (diagnostic study). The Bulldozer Engineer baseline using an oronasal 12-26-2019 [facility] ([facility]) thermal sensor (diagnostic study), PAP device flow Bulldozer Engineer Apnea definition: The peak 12-26-2019 [facility] ([facility]) signal excursions drop by >90% of pre-event Bulldozer Engineer Name: JAZLYN GARZON Date of 0 12-26-2019 [facility] ([facility]) Study: 12/14/2019 [facility]#: [id number] Bulldozer Engineer the AASM Manual for Scoring of 12-26-2019 [facility] ([facility]) Sleep and Associated Events version 2.5. Bulldozer Engineer accurate index of respiratory 12-26-2019 [facility] ([facility]) events. The ELIAS is a surrogate of the AHI per Bulldozer Engineer test. Since the home sleep 12-26-2019 [facility] ([facility]) apnea test does not measure sleep, the ELIAS is most Bulldozer Engineer index has been replaced by the 12-26-2019 [facility] ([facility]) respiratory event index for home sleep apnea Bulldozer Engineer events x 60 / TRT (total 0 12-26-2019 [facility] ([facility]) recording time in minutes). Note: the apnea hypopnea Bulldozer Engineer ELIAS definition: Respiratory 12-26-2019 [facility] ([facility]) event index (ELIAS), calculated as respiratory Bulldozer Engineer abdominal effort, and body 12-26-2019 [facility] ([facility]) position. Bulldozer Engineer pressure transducer, snoring 12-26-2019 [facility] ([facility]) via nasal pressure transducer, chest and Bulldozer Engineer rate, oxygen saturation, 0 12-26-2019 [facility] ([facility]) continuous airflow with thermistor and nasal Bulldozer Engineer a registered sleep [address] [place] [address] ([facility]) technologist. The monitored parameters included heart Bulldozer Engineer and was unattended. The [facility] ([facility]) patient was instructed on proper use of the device by Bulldozer Engineer Procedure: This study was 12-26-2019 [facility] ([facility]) performed using a Type III ambulatory PSG device Bulldozer Engineer Sleep procedure: PSG 12-25 [facility] ([facility]) unattended Type III, minimum of 4 parameters (92599) Bulldozer Engineer Medications: Synthroid [facility] ([facility]) Bulldozer Engineer Past medical history: ADHD, 12-26-2019 [facility] ([facility]) GERD, Hypothyroidism, SVT, Obesity Bulldozer Engineer mouth/sore throat. The patient 12-26-2019 [facility] ([facility]) endorses being a habitual side sleeper. Bulldozer Engineer gasping, snorting, multiple 12-26-2019 [facility] ([facility]) awakenings from sleep, and waking up with dry Bulldozer Engineer difficulty initiating sleep, 12-26-2019 [facility] ([facility]) daytime sleepiness, fatigue, waking up choking, Bulldozer Engineer Sleep history: The patient is 12-26-2019 [facility] ([facility]) a 53 year old female with a history of Bulldozer Engineer Referring Provider: HUGO 12-26-2019 [facility] ([facility]) ELIJAH Mailcode: [id number] Bulldozer Engineer time was 407 minutes. By 0 12-26-2019 [facility] ([facility]) convention, sleep is assumed for the whole Bulldozer Engineer Age: 53 (: 1965) ESS: 12-26-2019 [facility] ([facility]) Neck Circ. (cm): N/A Bulldozer Engineer 2. Recommend an in-laboratory 12-26-2019 [facility] ([facility]) polysomnogram if sleep apnea remains highly Bulldozer Engineer UVALDO MARIE (12/26/2019 12-26-2019 [facility] ([facility]) 2:40:02 PM) Bulldozer Engineer Report Digitally Signed By: 12-26-2019 [facility] ([facility]) Bulldozer Engineer 12-26-2019 [facility] ([facility]) Bulldozer Engineer [address], 12-26-2019 [facility] ([facility] [place] [address] Bulldozer Engineer I attest that I have performed 12-26-2019 [place] [address]) epoch by epoch review of the entire raw data. Bulldozer Engineer Uvaldo Marie MD 12-26-2019 [facility] ([facility]) Bulldozer Engineer INTERPRETING PHYSICIAN: [facility] ([facility]) Bulldozer Engineer to hypoventilation or a [facility] ([facility]) cardiopulmonary cause. Bulldozer Engineer hypoxemia represents true 12-26-2019 [facility] ([facility]) hypoxemia or artifact, and whether hypoxemia is due Bulldozer Engineer with end-tidal CO2 monitoring 12-26-2019 [facility] ([facility]) (EtCO2) may help to determine if the finding of Bulldozer Engineer this represents true hypoxemia 12-26-2019 [facility] ([facility]) or technical artifact. An in-lab sleep study Bulldozer Engineer majority of the study [facility] ([facility]) demonstrating oximetry below 88%. It is uncertain if Bulldozer Engineer 3. Hypoxemia was noted, even 12-26-2019 [facility] ([facility]) in the absence of respiratory events, with the Bulldozer Engineer suspected. 12-26-2019 [facility] ([facility]) Bulldozer Engineer ; Fax: 0 12-26-2019 [facility] ([facility]) Bulldozer Engineer observed in the supine [facility] ([facility]) position. Bulldozer Engineer only be measured on an [facility] ([facility]) in-laboratory polysomnogram. The patient was not Bulldozer Engineer apnea as HSAT does not measure 12-26-2019 [facility] ([facility]) certain types of respiratory events that can Bulldozer Engineer 1. This study neither confirms 12-26-2019 [facility] ([facility]) nor refutes a diagnosis of obstructive sleep Bulldozer Engineer IMPRESSION/RECOMMENDATIONS: 12-26-2019 [facility] ([facility]) Bulldozer Engineer Sleep Disorder, Unspecified 12-26-2019 [facility] ([facility]) [G47.9] Bulldozer Engineer Primary Snoring [R06.83] 0 12-26-2019 [facility] ([facility]) Bulldozer Engineer Sleep Related Hypoxia [G47.34] 12-26-2019 [facility] ([facility]) Bulldozer Engineer ICSD DIAGNOSIS: 12-26-2019 [facility] ([facility] [facility] Bulldozer Engineer The average heart rate was 76 12-26-2019 [place] [address]) bpm with a range of 31 bpm to 112 bpm. Bulldozer Engineer ECG DATA: 12-26-2019 [facility] ([facility]) Bulldozer Engineer Total 407.0 min 3.7 2019 [facility] ([facility]) Bulldozer Engineer Off-Supine 407.0 min 3.7 0 12-26-2019 [facility] ([facility]) Bulldozer Engineer Supine 0.0 min -- 12-26-19 [facility] ([facility]) Bulldozer Engineer Time ELIAS/AHI 12-26-2019 Cl [facility] ([facility]) Bulldozer Engineer recording time). 0 [facility] ([facility]) Bulldozer Engineer equal to 4% oxygen 020 [facility] ([facility]) desaturation from pre-event baseline. Bulldozer Engineer minutes at oxygen saturation 12-26-2019 [facility] ([facility]) measured less than 90% (93.9% of recording time) Bulldozer Engineer 86.0%, with a minimum oxygen 12-26-2019 [facility] ([facility]) saturation of 82.0%. The patient spent 382.1 Bulldozer Engineer per hour of study time. The 12-26-2019 [facility] ([facility]) mean oxygen saturation during the study was Bulldozer Engineer central) and 20 hypopneas. The 12-26-2019 [facility] ([facility]) respiratory event index (ELIAS) was 3.7 events Bulldozer Engineer these events, the total number 12-26-2019 [facility] ([facility]) of apneas was 5 (2 obstructive, 0 mixed, and 3 Bulldozer Engineer recording. Snoring was noted. 12-26-2019 [facility] ([facility]) There was a total of 25 respiratory events. Of Bulldozer Engineer [facility] Sleep [facility] ([facility]) [facility] Bulldozer Engineer The study started at 00:04:00 12-26-2019 [facility] ([facility]) and ended at 06:50:48 and the total recording Bulldozer Engineer Home Sleep Apnea Test (HSAT) 12-26-2019 [facility] ([facility]) Study Report Bulldozer Engineer RESPIRATORY DATA: 12-26-19 [facility] ([facility]) Bulldozer Engineer the =30% drop in signal [facility] ([facility]) excursion is =10 seconds. There is a greater than or Bulldozer Engineer and 360.4 minutes at oxygen 12-26-2019 [facility] ([facility]) saturation measured at or less than 88% (88.6% of cnpn on 2019 [facility] Normal 2019 [place] [facility] JAZLYN GARZON ([id number]) 1965 [facility] Time Provider Department ([id number]) 12/25/19 HUGO NAVA During your visit today, [...] Hives Date Reviewed: 08/21/2019 Reviewed by: Ofe ([facility]) Yoel - Fully Assessed Reason for [...] 12/25/19 progress on 2019-11 PROGRESS HNO ID: [id number] Normal 12-18-2019 [facility] Author: Debra Jasso [facility] ([id number]) Service: ? Author Type: ? Type: Progress Notes Filed: 12/18/2019 6:39 PM Note Text: Sleep Study Check-In Documentation Date: December 18, 2019 Name: Jazlyn Garzon Comments: HST was returned in working order with all sleep q uestionnaires Debra Jasso [facility] progress on 2019-11 PROGRESS HNO ID: [id number] Normal 12-12-2019 [facility] Author: Carmen Jenkins [place] ([id number]) Service: ? Author Type: ? 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 Author Type: Physician Type: Progress [...] suspected with comorbid medical or sleep disorders: Vczykkce-an-kknacd pulmonary disease Sleep study to be performed: [...] PhD 10:30 AM, 12/12/2019 PROGRESS HNO ID: [id number] Normal 12-12-2019 [facility] Author: Carmen Dixon ([id number]) Service: ? Author Type: ? Type: Progress Notes Filed: 12/18/2019 6:39 PM Note Text: Spoke with Ben Michael. He stated patient is okay to have HSAT because she only needs it for diagnostic purposes for her physician to have on record. PROGRESS HNO ID: [id number] [place] 12-12-2019 [facility] Author: Carmen Dixon ([id number]) Service: ? Author Type: ? Type: Progress Notes Filed: 12/18/2019 6:39 PM Note Text: December 12, 2019 An order has been received for Home Sleep Apnea Test (HSAT) from brittany Rodriguez. [facility] Staff. Visit prep complete. Comments :No The sleep study is scheduled for 12/12. Insurance: Payor: [facility] MEDICAID / Plan: [facility] SA[facility] ICAID / Product Type: Medicaid / Payor/Plan Subscr Sex Relation Sub. Ins. ID Effective Gr oup Num 1. [place]* JAZLYN GARZON Antonieta 1965 Female Self [id number] 05/27/16 [facility] [address] Carmen Jenkins progress on 2019-11 PROGRESS HNO ID: [id number] [place] 12-11-2019 [facility] Author: Antonieta Esqueda (Gregorio) Marcial Dixon ([id number]) Service: ? Author Type: Physician Hr Shared Services Consultant Type: Progress Notes Filed: 12/11/2019 9:12 AM [...] elevated from las t Seeing Treva in [place]: satisfied with care: thinks low te stosterone [...] Abs Lymph 1.00 - 4.00 k/uL 3.59 [place]% % 8.5 Abs [place] <0.87 k/uL 1.01 (H) Eosin% % 2.4 [...] stroke - Colon Cancer Father age 64 SD - Diabetes Father Type 2 - Hypertension Father - Coronary Artery Disease Father Hx of SD - Thyroid Sister hx of parathyroid disease/ [...] * *Final Report* * * Normal 12-04-2019 [facility] TRANSVAG DATE OF EXAM: Dec 04 2019 7:40AM [place] ([id number]) WRU 1060 - US FEMALE PELVIS TRANSVAG [...] . Six-month follow-up pelvic ultrasound is recommended. Shredding Specialist: JEANNA Transcribe Date/Time: Dec 04 2019 7:53A Dictated by : HAZEL TSE MD This examination was interpreted and the report reviewed and electronically signed by: HAZEL TSE MD on Dec 04 2019 7:55AM EST [id number] tsh on 2019-12-04 TSH Qn 3.940 0.270-4.200 uU/mL Normal 12-04-2019 [facility] ([id number]) Comment: Performed By: #### DHEAS, TD, PROG, E2 #### [facility] Laboratorie s [address] [place], [place] [address] #### EST #### [facility] [employer] [address] [place] [phone] testosterone, tot/fr on 2019-12-04 Testosterone [Mass/Vol] 20 8-60 ng/dL Normal 2019 [facility] (41661) Comment: Result Comment: (NOTE) ADDITIONA L INFORMATION Testing performed by Liquid Chromatography-Tandem Mass Spectrometry (LC-MS/MS). This test was developed and its performance characteristics determined by [facility] in a manner consistent with CLIA requirements. This test has not been cleared or approved by the U.S. Food and Drug Admin istration. Performed By: #### TFTEST ## ## [facility] [address] [place] [address] Testosterone, Free 0.22 0.06-0.92 ng/dL Normal 12-04-2019 [facility] (24117) Comment: Result Comment: (NOTE) ADDITIONA L INFORMATION Testing performed by [facility]. This test was developed and its performance characteristics determined by [facility] in a manner consistent with CLIA requirements. This test has not been cleared or approved by the U.S. Food and Drug Admin istration. Performed By: #### TFTEST ## ## [facility] [address] [place] [address] progress on 2019-11 PROGRESS HNO ID: [id number] Normal 12-04-2019 [facility] Author: Mireya Leon) Renae [place] ([id number]) Service: ? Author Type: Service Center Specialist Type: Progress Notes Filed: 12/04/2019 7:41 AM [...] progesterone on Progesterone 0.2 ng/mL Normal 12-04-2019 [facility] ([id number]) Comment: Result Comment: Menstrual Cy soy Progesterone Reference Ranges: Follicular:<1.0 ng/mL Ovulation:<12.1 ng/mL Luteal:1.8 to 23.9 ng/mL Progesterone Refer ence Ranges vary by gestational period: First Trimester:11.0 to 44.3 ng/mL Second Trimester:25.4 to >60 .0 ng/mL Third Trimester:58.7 to >60. 0 ng/mL Post menopausal Progesterone :<0.5 ng/mL Reference: 1. Progesterone ( Progesterone III) [package insert V 1.0 Latvian]. [employer], [place], [place]. January 2015. Performed By: #### DHEAS, TD, PROG, E2 #### [facility] Laboratorie [place] [phone] #### EST #### [facility] [address] [place], [place] [phone] lipid panel, basic on 2019-12-04 Cholesterol [Mass/Vol] 125 <200 mg/dL Normal 020 [facility] (07647) Comment: Result Comment: <200 mg/dL, Desirable 200-239 mg/dL, Borderline hi gh >239 mg/dL, High Performed By: #### DHEAS, TD, PROG, E2 #### [facility] [place] [phone] #### EST #### [facility] [address] [place] [address] [phone] Cholesterol in HDL [Mass/Vol] 37 >39 mg/dL Low 12-04-2019 [facility] (35733) Comment: Result Comment: 40-59 mg/dL, Acceptable >59 mg/dL, High: Negative ri sk factor for coronary heart disease <40 mg/dL, Low: Positive ris k factor for coronary heart disease Performed By: #### DHEAS, TD, PROG, E2 #### [place] [phone] #### EST #### [facility] [address] [place], [place] [id number] [phone] Cholesterol in LDL 68 <100 mg/dL Normal 12-04-2019 [facility] [Mass/Vol] [place] ([address]404) Comment: Result Comment: <100 mg/dL, Optimal 100-129 mg/dL, Near optimal/ above optimal 130-159 mg/dL, Borderline hi gh 160-189 mg/dL, High >189 mg/dL, Very high Secondary prevention optimal LDL Cholesterol levels are recommended to be < 70 mg/dL Performed By: #### DHEAS, TD, PROG, E2 #### [facility] Laborator[facility] s [address] [place] [address] #### EST #### [facility] [address] [place] [address] [phone] Fasting Time 12 hrs Normal 12-04-2019 [facility] (66942) Comment: Performed By: #### DHEAS, TD, PROG, E2 #### [facility] [address] [place] [phone] #### EST #### [facility] [address] [place] [address] [phone] LDL:HDL Ratio 1.84 <2.54 Normal 12-04-2019 [facility] (95215) Comment: Result Comment: Reference: 1. National Cholesterol Educ ation Program ATP III Guideline At-A-Glance Quick Desk Reference: National Heart, Lung, and Blood [place]. National Institutes of Health. 2001: NIH Publication No. 01-3305. 2. An International Atherosc lerosis Society position paper: global recommendations for the management of dyslipidemia: executive summary, Atherosclerosis. 2014: 232(2):410-413. Performed By: #### DHEAS, TD, PROG, E2 #### [facility] [address] [place] [address] #### EST #### [facility] [address] [place] [address] [phone] Non HDL Cholesterol 88 <130 mg/dL Normal 12-04-2019 [facility] (46069) Comment: Result Comment: <130 mg/dL, Optimal 130-159 mg/dL, Near optimal/ above optimal 160-189 mg/dL, Borderline hi gh 190-219 mg/dL, High >219 mg/dL, Very high Secondary prevention optimal non HDL Cholesterol levels are recommended to be < 100 mg/dL Performed By: #### DHEAS, TD, PROG, E2 #### [place] [address] #### EST #### [facility] [address] [place] [address] [phone] TC:HDL Ratio 3.38 <5.10 Normal 12-04-2019 [facility] (67833) Comment: Performed By: #### DHEAS, TD, PROG, E2 #### [place] [phone] #### EST #### [place] [address] [phone] Triglyceride [Mass/Vol] 102 <150 mg/dL Normal 2019 [facility] (07737) Comment: Result Comment: <150 mg/dL, Normal 150-199 mg/dL, Borderline hi gh 200-499 mg/dL, High >499 mg/dL, Very high Performed By: #### DHEAS, TD, PROG, E2 #### [place] [address] #### EST #### [facility] [address] [place] [phone] VLDL Cholesterol 20 <30 mg/dL Normal 12-04-2019 [facility] (89837) Comment: Performed By: #### DHEAS, TD, PROG, E2 #### [place] [address] #### EST #### [facility] [address] [place], [place] [id number] [phone] hemoglobin a1c on HbA1c (Bld) [Mass fraction] 126 mg/dL Normal [facility] (53674) Comment: Result Comment: eAG: (Estima geoff average glucose) is a calculated value from HgbA1c and is packaging sales representative of the average blood glucose level in the last 2-3 month period. Performed By: #### DHEAS, TD, PROG, E2 #### [facility] Laborator[facility] s [address] [place], [place] [address] #### EST #### [facility] [address] [place] [address] [phone] HbA1c (Bld) [Mass fraction] 6.0 4.3-5.6 % High [facility] (54590) Comment: Result Comment: [place] Citizen Antonette betes Association guidelines indicate that patients with HgbA1c in the range 5.7-6.4% are at increased risk for development of diabetes, and intervention by lifestyle modification may be beneficial. HgbA1c greater o r equal to 6.5% is considered diagnostic of diabetes. Performed By: #### DHEAS, TD, PROG, E2 #### [facility] s [address] [place] [address] #### EST #### [facility] [address] [place] [address] [phone] free t4 on Free T4 [Mass/Vol] 1.2 0.9-1.7 ng/dL Normal 12-04-2019 [facility] (47326) Comment: Performed By: #### FREET3, F T4 ####[facility] [address] [place], [place] [phone] free t3 on Free T3 [Mass/Vol] 2.8 2.3-4.1 pg/mL Normal 12-04-2019 [facility] (78121) Comment: Performed By: #### FREET3, F T4 #### [facility] s [address] [place] [address] estrone on Estrone 18.4 pg/mL Normal 12-04-2019 [facility] (21235) Comment: Result Comment: (NOTE) Females: Pre-menopausal: Early follic ular <150.0 pg/mL Pre-menopausal: Late follicu lar 100.0-250.0 pg/mL Pre-menopausal: Luteal <200. 0 pg/mL Post-menopausal 3.0-32.0 pg/ mL REFERENCE INTERVAL: Estrone by TMS Access complete set of age- and/or gender-specific reference intervals for this test in t [facility] Test Directory ([employer]). Test developed and character istics determined by [employer]. See Compliance Statement B: [employer]/CS Performed By: [facility] [address] [place] [address] [employer] [place]: Wilner Rosa MD, [place] Performed By: #### DHEAS, TD, PROG, E2 #### [facility] [address] [place] [address] #### EST #### [facility] [address] [place] [phone] estradiol-17b on 13-12-09 Estradiol-17B <25 Normal 12-04-2019 [facility] (59853) Comment: Result Comment: This test is not [...] E2 (Estradiol III) [package insert V 3.0 Latvian]. [employer], [place], [place], September 2015. Performed By: #### DHEAS, TD, PROG, E2 #### [facility] Labor[facility] s [address] [place], [place] [address] #### EST #### [facility] [address] [place] [address] [phone] comp metabolic panel on 2019-12-04 Albumin [Mass/Vol] 4.0 3.9-4.9 g/dL Normal 12-04-2019 [facility] (25909) Comment: Performed By: #### DHEAS, TD, PROG, E2 #### [place] [phone] #### EST #### [facility] [address] [place] [address] [phone] ALP [Catalytic activity/Vol] 82 34-123 U/L Normal 0 12-04-2019 [facility] (85033) Comment: Performed By: #### DHEAS, TD, PROG, E2 #### [place] [phone] #### EST #### [facility] [address] [place], [place] [phone] ALT [Catalytic activity/Vol] 24 7-38 U/L Normal 0 12-04-2019 [facility] (38831) Comment: Performed By: #### DHEAS, TD, PROG, E2 #### [place] [phone] #### EST #### [facility] [address] [place], [place] [id number] [phone] Anion gap [Moles/Vol] 9 9-18 mmol/L Normal 12-04-19 [facility] (20612) Comment: Performed By: #### DHEAS, TD, PROG, E2 #### [place] [address] #### EST #### [facility] [address] [place], [place] [phone] AST [Catalytic activity/Vol] 16 13-35 U/L Normal 0 12-04-2019 [facility] (97240) Comment: Performed By: #### DHEAS, TD, PROG, E2 #### [facility] [address] [place] [phone] #### EST #### [facility] [address] [place] [address] [phone] Bilirubin [Mass/Vol] <0.2 0.2-1.3 mg/dL Low 0 [facility] (31206) Comment: Performed By: #### DHEAS, TD, PROG, E2 #### [facility] [place] [phone] #### EST #### [facility] [address] [place] [address] [phone] Calcium [Mass/Vol] 9.4 8.5-10.2 mg/dL Normal 12-04-2019 [facility] (09665) Comment: Performed By: #### DHEAS, TD, PROG, E2 #### [place] [phone] #### EST #### [facility] [address] [place] [address] [phone] Chloride [Moles/Vol] 103 97-105 mmol/L Normal 0 [facility] (08798) Comment: Performed By: #### DHEAS, TD, PROG, E2 #### [place] [phone] #### EST #### [facility] [address] [place] [address] [phone] CO2 [Moles/Vol] 26 22-30 mmol/L Normal 12-04-2019 [facility] (39052) Comment: Performed By: #### DHEAS, TD, PROG, E2 #### [place] [phone] #### EST #### [facility] [address] [place] [address] [phone] Creatinine [Mass/Vol] 0.79 0.58-0.96 mg/dL Normal 12-04-19 20 [facility] (60676) Comment: Performed By: #### DHEAS, TD, PROG, E2 #### [facility]atorie s [address] [place] [address] #### EST #### [facility] [address] [place] [address] [phone] eGFR- Amer. >60 Normal 12-04-2019 [facility] (00996) Comment: Performed By: #### DHEAS, TD, PROG, E2 #### [facility] [address] [place] [address] #### EST #### [facility] [address] [place] [address] [phone] GFR/1.73 sq M predicted >60 mL/min/{1.73_m2} Normal 12-04-2019 [facility] among non-blacks [facility] (46838) (S/P/Bld) [Vol rate/Area] Comment: Result Comment: eGFR [...] By: #### DHEAS, TD, PROG, E2 #### [facility] [address] [place] [phone] #### EST #### [facility] [address] [place] [address] [phone] Glucose [Mass/Vol] 141 74-99 mg/dL High 12-04-2019 [facility] (80092) Comment: Result Comment: The [place] Citizen Diabetes Association (ADA) provides guidance for cutoff [...] for diagnosis of diabetes. Reference: Standards of [facility] Care in Diabetes 2016, [place] Citizen Diabetes Association. Diabetes Care. 2016.39(Suppl 1). Performed By: #### DHEAS, TD, PROG, E2 #### [facility] [place] [phone] #### EST #### [facility] [address] [place] [address] [phone] Potassium [Moles/Vol] 3.7 3.7-5.1 mmol/L Normal 12-04-19 [facility] (46156) Comment: Performed By: #### DHEAS, TD, PROG, E2 #### [facility] s [address] [place] [phone] #### EST #### [facility] [address] [place] [address] [phone] Protein [Mass/Vol] 6.6 6.3-8.0 g/dL Normal 12-04-2019 [facility] (70133) Comment: Performed By: #### DHEAS, TD, PROG, E2 #### [facility] [address] [place] [phone] #### EST #### [facility] [address] [place] [address] [phone] Sodium [Moles/Vol] 138 136-144 mmol/L Normal 12-04-2019 [facility] (51937) Comment: Performed By: #### DHEAS, TD, PROG, E2 #### [facility] Laboratorie [place] [phone] #### EST #### [facility] [address] [place] [address] [phone] Urea nitrogen [Mass/Vol] 9 7-21 mg/dL Normal 12-03 [facility] (65174) Comment: Performed By: #### DHEAS, TD, PROG, E2 #### [place] [phone] #### EST #### [facility] [address] [place] [address] [phone] cbc and differential on 2019-12-04 Abs Baso 0.06 <0.11 k/uL Normal 12-04-2019 [facility] (97230) Comment: Performed By: #### DHEAS, TD, PROG, E2 #### [place] [phone] #### EST #### [facility] [address] [place] [address] [phone] Abs [place] 1.01 <0.87 k/uL High 12-04-2019 [facility] (30021) Comment: Performed By: #### DHEAS, TD, PROG, E2 #### [place] [phone] #### EST #### [facility] [address] [place] [address] [phone] Abs Neut 6.96 1.45-7.50 k/uL Normal 12-04-2019 [facility] (43437) Comment: Performed By: #### DHEAS, TD, PROG, E2 #### [place] [phone] #### EST #### [facility] [address] [place] [address] [phone] Absolute nRBC <0.01 <0.01 Normal 12-04-2019 [facility] (78471) Comment: Performed By: #### DHEAS, TD, PROG, E2 #### [facility] s [address] [place] [phone] #### EST #### [facility] [address] [place] [address] [phone] Basophils/100 WBC (Bld) 0.5 % Normal 2019 [facility] (98794) Comment: Performed By: #### DHEAS, TD, PROG, E2 #### [facility] [address] [place] [phone] #### EST #### [facility] [address] [place] [address] [phone] DTYPE Auto Diff Normal 12-04-2019 [facility] (00010) Comment: Performed By: #### DHEAS, TD, PROG, E2 #### [facility] [address] [place] [phone] #### EST #### [facility] [address] [place] [address] [phone] Eosinophils (Bld) [#/Vol] 0.29 <0.46 k/uL Normal 11-24 [facility] (88804) Comment: Performed By: #### DHEAS, TD, PROG, E2 #### [facility] s [address] [place] [phone] #### EST #### [facility] [address] [place] [address] [phone] Eosinophils/100 WBC (Bld) 2.4 % Normal 11-24 [facility] (18983) Comment: Performed By: #### DHEAS, TD, PROG, E2 #### [facility] s [address] [place] [phone] #### EST #### [facility] [address] [place] [address] [phone] Erythrocyte distribution 12.4 11.5-15.0 % Normal 12-03 [facility] width (RBC) [Ratio] [place] (24575) Comment: Performed By: #### DHEAS, TD, PROG, E2 #### [facility] s [address] [place] [phone] #### EST #### [facility] [address] [place], [place] [phone] Hematocrit (Bld) [Volume 46.8 36.0-46.0 % High 12-03 [facility] fraction] [place] (65526) Comment: Performed By: #### DHEAS, TD, PROG, E2 #### [facility] [address] [place] [phone] #### EST #### [facility] [address] [place] [address] [phone] Hemoglobin (Bld) 15.4 11.5-15.5 g/dL Normal 12-04-2019 [facility] [Mass/Vol] [place] (99748) Comment: Performed By: #### DHEAS, TD, PROG, E2 #### [facility] [address] [place] [phone] #### EST #### [facility] [address] [place] [address] [phone] Lymphocytes (Bld) [#/Vol] 3.59 1.00-4.00 k/uL Normal 11-24 [facility] (71358) Comment: Performed By: #### DHEAS, TD, PROG, E2 #### [facility] [address] [place] [phone] #### EST #### [facility] [address] [place] [address] [phone] Lymphocytes/100 WBC (Bld) 30.1 % Normal 11-24 [facility] (60242) Comment: Performed By: #### DHEAS, TD, PROG, E2 #### [place] [phone] #### EST #### [facility] [address] [place] [address] [phone] MCH (RBC) [Entitic mass] 31.6 26.0-34.0 pG Normal 12-03 [facility] ([id number]) Comment: Performed By: #### DHEAS, TD, PROG, E2 #### [facility] [place] [phone] #### EST #### [facility] [address] [place] [phone] MCHC (RBC) [Mass/Vol] 32.9 30.5-36.0 g/dL Normal 12-04-19 [facility] (80056) Comment: Performed By: #### DHEAS, TD, PROG, E2 #### [place] [phone] #### EST #### [facility] [address] [place] [address] [phone] MCV (RBC) [Entitic vol] 96.1 80.0-100.0 fL Normal 12-03 [facility] (36624) Comment: Performed By: #### DHEAS, TD, PROG, E2 #### [place] [phone] #### EST #### [facility] [address] [place] [address] [phone] Monocytes/100 WBC (Bld) 8.5 % Normal 2019 [facility] (38278) Comment: Performed By: #### DHEAS, TD, PROG, E2 #### [facility] [address] [place] [phone] #### EST #### [facility] [address] [place] [address] [phone] Neutrophils/100 WBC (Bld) 58.5 % Normal 11-24-2019 [facility] (41161) Comment: Performed By: #### DHEAS, TD, PROG, E2 #### [facility] s [facility] [place] [phone] #### EST #### [facility] [address] [place] [address] [phone] NRBCs 0.0 0 /100 WBC Normal 12-04-2019 [facility] (07097) Comment: Performed By: #### DHEAS, TD, PROG, E2 #### [place] [phone] #### EST #### [facility] [address] [place] [address] [phone] Platelet mean volume 9.7 9.0-12.7 fL Normal 0 [facility] (Bld) [Entitic vol] (85996) Comment: Performed By: #### DHEAS, TD, PROG, E2 #### [place] [address] [place] [phone] #### EST #### [facility] [address] [place] [address] [phone] Platelets (Bld) [#/Vol] 302 150-400 k/uL Normal 2019 [facility] (64230) Comment: Performed By: #### DHEAS, TD, PROG, E2 #### [place] [phone] #### EST #### [facility] [address] [place] [address] [phone] RBC (Bld) [#/Vol] 4.87 3.90-5.20 m/uL Normal 12-04-2019 [facility] (55245) Comment: Performed By: #### DHEAS, TD, PROG, E2 #### [facility] [address] [place], [place] [address] #### EST #### [facility] [address] [place] [address] [phone] WBC (Bld) [#/Vol] 11.91 3.70-11.00 k/uL High 12-04-2019 [facility] (34667) Comment: Performed By: #### DHEAS, TD, PROG, E2 #### [facility] [address] [place], [place] [address] #### EST #### [facility] [address] [place] [address] [phone] progress on 2019-10 PROGRESS HNO ID: [id number] Normal 10-30-2019 [facility] Author: Hugo Nava [place] ([id number]) Service: ? Author Type: Physician Type: Progress [...] are being torn off of her bones. [place] week and exhausted Had a sour taste [...] stroke - Colon Cancer Father age 64 SD - Diabetes Father Type 2 - Hypertension Father - Coronary Artery Disease Father Hx of SD - Thyroid Sister hx of parathyroid disease/ [...] diagnosis) -doing great. Continue to follow with buffet runner. 2. Thickened endometrium - ICD9: 793.5, ICD10: [...] more than 50% of the t otal chvi-hz-dpds time of the visit in counseling / coordination of care. [facility] on 2019-10-30 CNPN Telephone (FAMPWS) Normal 10-30-2019 [facility] JAZLYN GARZON ([id number]) 1965 [facility] Time Provider Department (52492) 10/30/19 HUGO NAVA During your visit today, we recorded the following informati on about you: Jazlyn Garcia Ma 10/30/2019 3:29 PM Signed Hugo Gutiérrez [facility] Pool ? Set up us in one [...] Hives Date Reviewed: 08/21/2019 Reviewed by: Ofe ([facility]) Yoel - Fully Assessed Reason for [...] Qn 2.760 0.270-4.200 uU/mL Normal 10-24-2019 [facility] (37271) Comment: Performed By: #### DHEAS, TD, PROG, E2 #### [facility] [address] [place] [address] #### EST #### [facility] [address] [place] [phone] cnpn on 2019-10-24 CNPN Telephone (FAMPWS) Normal 10-24-2019 [place] JAZLYN Jones ([id number]) 1965 [facility] Date Time Provider Department ([id number]) 10/24/19 [facility] your visit today, we recorded [...] Hives Date Reviewed: 08/21/2019 Reviewed by: [facility]fe [facility] Yoel - Fully Assessed Reason for Visit: Lab Orders [1688] Primary Visit Diagnosis:Hypothyroidism, acquired [E03.9] Order(s):TSH BLD [SQTSH] Order #: [id number] FUTURE Prescriptions as of 10/24/2019 Sig: ESCITALOPRAM [...] 10/24/19 progress on 2019-09 PROGRESS HNO ID: [id number] Normal 09-29-2019 [facility] Author: Hugo Nava [place] ([id number]) Service: ? Author Type: Physician Type: Progress [...] are being torn off of her bones. [place] week and exhausted Had a sour taste [...] stroke - Colon Cancer Father age 64 SD - Diabetes Father Type 2 - Hypertension Father - Coronary Artery Disease Father Hx of SD - Thyroid Sister hx of parathyroid disease/ [...] her to avoid using and follow with buffet runner. Fernandoy man. Follow up in one month or prn. Hugo Nava MD us female pelvis transvag on 2019-09-28 US FEMALE PELVIS * * *Final Report* * * Normal 09-28-2019 [facility] TRANSVAG DATE OF EXAM: Sep 28 2019 7:55AM [place] ([id number]) WRU 1060 - US FEMALE PELVIS TRANSVAG [...] of free fluid or pathologic adnexal mass Shredding Specialist: PSCB Transcribe Date/Time: Sep 28 2019 9:30A Dictated by : GLADIS BREEN MD This examination was interpreted and the report reviewed and electronically signed by: GLADIS BREEN MD on Sep 28 2019 9:34AM EST [id number] progress on 2019-09 PROGRESS HNO ID: [id number] Normal 09-28-2019 [facility] Author: Michelle Bo (Tech) [place] ([id number]) Service: ? Author Type: High Lift Operator Type: Progress Notes Filed: 09/28/2019 7:46 AM [...] on 2019-09-28 DHIRAJN Telephone (OBGYWM) Normal 09-28-2019 [place] [facility] JAZLYN GARZON ([id number]) 1965 [facility] Time Provider Department (55495) 09/28/19 OFE GARCIA) OBGYWM During your visit [...] Hives Date Reviewed: 08/21/2019 Reviewed by: Ofe ([facility]) Yoel - Fully Assessed Reason for Visit: Results [95] Primary Visit Diagnosis:Endometrial thickening on ultrasound [R93.89] Order(s):PELVIC US [facility] [[id number]] Order #: [id number]: 1 Prescriptions as of 09/28/2019 Sig: ESCITALOPRAM [...] 09/28/19 progress on 2019-08 PROGRESS HNO ID: [id number] Normal 09-15-2019 [facility] Author: Hugo Nava [place] ([id number]) Service: ? Author Type: Physician Type: Progress [...] are being torn off of her bones. [place] week and exhausted Had a sour taste [...] had bleeding. Has declined endometrial biopsy but buffet runner is following her ble eding. Has seen multiple providers including cardio, endo, gi, surg alberto, buffet runner, neurology, rheumatology has had extensive work up [...] stroke - Colon Cancer Father age 64 SD - Diabetes Father Type 2 - Hypertension Father - Coronary Artery Disease Father Hx of SD - Thyroid Sister hx of parathyroid disease/ [...] of hormones. Encouraged to follow up with buffet runner. 5. Anxiety - ICD9: 300.00, ICD10: F41.9 - Discussed risks and benefits of new medication with the raymond vale. Advised them to call if any side effects or questions. - follow up in two weeks. - ESCITALOPRAM 10 MG TABLET 6. Hormone disturbance - ICD9: 259.9, ICD10: E34.9 - defer to buffet runner/enco Hugo Nava MD RTO in two weeks. and prn. I spent 30 minutes in the visit, with more than 50% of the t otal pmci-qg-qsrq time of the visit in counseling / coordination of care. period and volume o n 2019-09-11 Period 24 hr Normal 09-11-2019 [facility] (74255) Comment: Performed By: #### TFTEST ## ## [facility] perior [employer] [address] [place] [address] Volume 3200 mL Normal 09-11-2019 [facility] (60089) Comment: Performed By: #### TFTEST ## ## [facility] [employer] [facility] [address] [place] [address] hiaa, urine, 24 hour on 2019-09-11 HIAA, Urine, 24 Hour 3.8 0.0-8.0 mg/24hrs Normal 0 [facility] (19371) Comment: Result Comment: This test wa s developed and its performance characteristics determined by [facility]'s [facility] Tre[facility] [place] ( [facility]). It has not been cleared or a pproved by the FDA. [facility] is regulated under CLIA as qualified to perform high complexity testing. This test is used for clinic al purposes. It should not be regarded as investigational or for research. Performed By: #### TFTEST ## ## [facility] [employer] [facility] [address] [place] [address] vitamin b6 plasma o n 2019-09-06 Vitamin B6 Plasma 22.0 20.0-125.0 nmol/L Normal 09-06-2019 [facility] (90559) Comment: Result Comment: (NOTE) INTERPRETIVE INFORMATION: Vi tamin B6 (Pyridoxal 5-Phosphate) Pyridoxal 5'-phosphate measu red in a specimen collected following an 8-hour or overnight fast accurately indicates vitamin B6 nutritional status. Non-fast ing specimen concentration reflects recent vitamin intake. Test developed and character istics determined by [employer]. See Compliance Statement B: [employer]/CS Performed by [facility] , [address] [place] [address] 8410 www.[employer], Wilner Saenz do, MD, Lab. Director Performed By: #### FERR, SER FOL, IRON, PROG, B12, E2 ####[facility] [address] [place], [place] [phone]#### EST, VITB6 ####[facility] [address] [place], [place] [phone] vitamin b12 on 2019 Cobalamin (Vitamin B12) 022 298-6439 pg/mL Normal 2019 [facility] [Mass/Vol] [place] (61461) Comment: Performed By: #### FERR, SER FOL, IRON, PROG, B12, E2 ####[facility] [address] [place], [place] [phone]#### EST, VITB6 ####[facility] [address] [place], [place] [phone] testosterone, tot/fr on 2019-09-06 Testosterone [Mass/Vol] 23 8-60 ng/dL Normal 2019 [facility] (35127) Comment: Result Comment: (NOTE) ADDITIONA L INFORMATION Testing performed by Liquid Chromatography-Tandem Mass Spectrometry (LC-MS/MS). This test was developed and its performance characteristics determined by [facility] in a manner consistent with CLIA requirements. This test has not been cleared or approved by the U.S. Food and Drug Admin istration. Performed By: #### TFTEST ## ## [facility] [address] [place], [place] [id number] Testosterone, Free 0.25 0.06-0.92 ng/dL Normal 09-06-2019 [facility] (56097) Comment: Result Comment: (NOTE) ADDITIONA L INFORMATION Testing performed by [facility]. This test was developed and its performance characteristics determined by [facility] in a manner consistent with CLIA requirements. This test has not been cleared or approved by the U.S. Food and Drug Admin istration. Performed By: #### TFTEST ## ## [facility] [address] [place] [address] progesterone on 202 Progesterone 0.4 ng/mL Normal 09-06-2019 [facility] (54151) Comment: Result Comment: Menstrual Cy soy Progesterone Reference Ranges: Follicular:<1.0 ng/mL Ovulation:<12.1 ng/mL Luteal:1.8 to 23.9 ng/mL Progesterone Refer ence Ranges vary by gestational period: First Trimester:11.0 to 44.3 ng/mL Second Trimester:25.4 to >60 .0 ng/mL Third Trimester:58.7 to >60. 0 ng/mL Post menopausal Progesterone :<0.5 ng/mL Reference: 1. Progesterone ( Progesterone III) [package insert V 1.0 Latvian]. [facility], [place], [place]. January 2015. Performed By: #### FERR, SER FOL, IRON, PROG, B12, E2 ####[facility] [address] [place], [place] [phone]#### EST, VITB6 ####[facility] [address] [place], [place] [phone] iron and tibc on 12-09-12 Iron [Mass/Vol] 126 41-186 ug/dL Normal 09-06-2019 [facility] (93340) Comment: Performed By: #### FERR, SER FOL, IRON, PROG, B12, E2 ####[place] [address] [place], [place] [phone]#### EST, VITB6 ####[facility] [address] [place], [place] [phone] TIBC 402 232-386 ug/dL High 09-06-2019 [facility] (44211) Comment: Performed By: #### FERR, SER FOL, IRON, PROG, B12, E2 ####[place] [address] [place], [place] [phone]#### EST, VITB6 ####[facility] [address] [place], [place] [phone] Transferrin Saturatn 31 15-57 % Normal 0 [facility] (21008) Comment: Performed By: #### FERR, SER FOL, IRON, PROG, B12, E2 ####[place] [address] [place], [place] [phone]#### EST, VITB6 ####[facility] [address] [place], [place] [phone] folate, serum on 12-09-12 Folate [Mass/Vol] 10.6 >4.7 ng/mL Normal 09-06-2019 [facility] (77952) Comment: Performed By: #### FERR, SER FOL, IRON, PROG, B12, E2 ####[place] [address] [place], [place] [phone]#### EST, VITB6 ####[facility] [address] [place], [place] [phone] ferritin on 2019-08 Ferritin [Mass/Vol] 142.0 14.7-205.1 ng/mL Normal 0 [facility] (44532) Comment: Performed By: #### FERR, SER FOL, IRON, PROG, B12, E2 ####[facility] [address] [place], [place] [phone]#### EST, VITB6 ####[facility] [address] [place], [place] [phone] estrone on Estrone 24.8 pg/mL Normal 09-06-2019 [facility] (19814) Comment: Result Comment: (NOTE) Females: Pre-menopausal: Early follic ular <150.0 pg/mL Pre-menopausal: Late follicu lar 100.0-250.0 pg/mL Pre-menopausal: Luteal <200. 0 pg/mL Post-menopausal 3.0-32.0 pg/ mL REFERENCE INTERVAL: Estrone by [facility] Access complete set of age- and/or gender-specific reference intervals for this test in [facility] Test Directory ([employer]). Test developed and character istics determined by [employer]. See Compliance Statement B: [employer]/CS Performed by [facility] , [address] [place], [place] 84[address] www.[employer], Wilner Saenz do, MD, Lab. Director Performed By: #### FERR, SER FOL, IRON, PROG, B12, E2 ####[facility] [address] [place], [place] [phone]#### EST, VITB6 ####[facility] [address] [place], [place] [phone] estradiol-17b on 12-09-12 Estradiol-17B <25 Normal 09-06-2019 [facility] (27977) Comment: Result Comment: This test is not [...] E2 (Estradiol III) [package insert V 3.0 Latvian]. [facility], [place], [place], September 2015. Performed By: #### FERR, SER FOL, IRON, PROG, B12, E2 ####[facility] [address] [place], [place] [phone]#### EST, VITB6 ####[facility] [address] [place], [place] [phone] progress on 2019-08 PROGRESS HNO ID: [id number] Normal 09-01-2019 [place] Author: Hugo Nava [facility] Service: ? [place] Author Type: Physician ([id number]) Type: Progress Notes Filed: 09/01/2019 12:28 PM [...] the office setting and agrees. Used the [employer]sbridge platform. Seen at [facility] ER on 08/28. Date of Service: [...] ST c hanges. Troponin is negative. B CHRONOMETER ASSEMBLER is normal. LFTs are normal. Chem-7 shows [...] days for another exam. Return to the [facility] department for any worsening symptoms. Disposition: To home in improved and stable condition. Impression: 1. Peripheral edema. 2. Sinus tachycardia. This note was generated with [employer] dictation software. It m ay contain incorrect [...] Care Provider. [facility] ([phone]) or report to the closest Emergency Room. Call 911 if necessary. 08/29/19 0627 Date Willian uDff MD Cosigner Signature (If Indicated): Date CC: [...] actually h ad amenorrhea due to PCOS. COUNTY ENGINEER and I recommended endometrial biopsy. She h [...] for carcinoid. Reinforced need to follow with buffet runner and endo and to hold on hormone [...] stroke - Colon Cancer Father age 64 SD - Diabetes Father Type 2 - Hypertension Father - Coronary Artery Disease Father Hx of SD - Thyroid Sister hx of parathyroid disease/ [...] Reinforced need to follow with endo and buffet runner and follow their recommendations. Suggested we could [...] MD progress on 2019-07 PROGRESS HNO ID: [id number] Normal 08-21-2019 [place] Author: Ofe Randhawa) [facility] Service: ? [place] Author Type: Nurse Practitioner ([id number]) Type: Progress Notes Filed: 08/21/2019 9:45 AM [...] stroke - Colon Cancer Father age 64 SD - Diabetes Father Type 2 - Hypertension Father - Coronary Artery Disease Father Hx of SD - Thyroid Sister hx of parathyroid disease/ [...] on 2019-08-21 MELINDA Telephone (OBGYWM) Normal 08-21-2019 [place] JAZLYN Jones ([id number]) 1965 F [place] Date Time Provider Department (67421) 08/21/19 OFE GARCIA (DHIRAJ) OBGYWM During your visit today, we recorded the following informati on about you: Marina Maxwell Pss 08/21/2019 1:09 PM Signed Left VM to schedule Pelvis Ultrasound in 2 mths.Marina Carrilol hers Pss Allergies As of Date: 08/21/2019 [...] Hives Date Reviewed: 08/21/2019 Reviewed by: Ofe ([facility]) Yoel - Fully Assessed Reason for [...] on 08/21/19 DHIRAJN Telephone (OBGYWM) Normal 08-21-2019 [place] JAZLYN Jones ([id number]) 1965 F [place] Date Time Provider Department (28143) 08/21/19 OFE GARCIA ([facility]) OBGYWM During your visit today, we recorded the following informati on about you: Ofe Garcia APRN.BLACK TOP MACHINE OPERATOR 08/21/2019 9:46 AM Signed Please call pt to schedule pelvic US in 2 months. Thanks, Re anand Garcia APRN.DHIRAJ [facility] 08/23/2019 1:24 PM Signed Completed. Allergies As [...] Hives Date Reviewed: 08/21/2019 Reviewed by: Ofe ChaidezMachine Hostler) Yoel - Fully Assessed Reason for Visit: [...] Normal 08-20-2019 [facility] JAZLYN GARZON ([id number]) 1965 [facility] Date Time Provider Department ([id number]) 08/20/19 OFE GARCIA ([facility]) OBGYWM During your visit today, we [...] Hives Date Reviewed: 08/17/2019 Reviewed by: Ofe ([facility]) Yoel - Fully Assessed Reason for [...] * *Final Report* * * Normal 08-17-2019 [facility] TRANSVAG DATE OF EXAM: Aug 17 2019 11:01AM [place] ([id number]) WRU 1060 - US FEMALE PELVIS TRANSVAG [...] Simple appearing cyst in the RIGHT ovary Shredding Specialist: JEANNA Transcribe Date/Time: Aug 17 2019 11:06A Dictated by : ELLY BROWN DO This examination was interpreted and the report reviewed and electronically signed by: ELLY BROWN DO on Aug 17 2019 11:09AM EST [id number] progress on 2019-07 PROGRESS HNO ID: [id number] Normal 08-17-2019 [place] Author: Ofe Randhawa) [facility] Service: ? [place] Author Type: Nurse Practitioner ([id number]) Type: Progress Notes Filed: 08/17/2019 2:27 PM [...] stroke - Colon Cancer Father age 64 SD - Diabetes Father Type 2 - Hypertension Father - Coronary Artery Disease Father Hx of SD - Thyroid Sister hx of parathyroid disease/ [...] 30 mins spent with visit. Ofe Garcia APRN.BLACK TOP MACHINE OPERATOR PROGRESS HNO ID: [id number] Normal 08-17-2019 [place] Author: Mireya Leon) [facility] Service: ? [place] Author Type: Service Center Specialist ([id number]) Type: Progress Notes Filed: 08/17/2019 11:02 AM [...] Qn 2.720 0.270-4.200 uU/mL Normal 08-16-2019 [facility] (21332) Comment: Performed By: #### DHEAS, TD, PROG, E2 #### [facility] Labor[facility] s [address] [place], [place] [address] #### EST #### [facility] [employer] [address] [place] [phone] testosterone, tot/fr on 2019-08-16 Testosterone [Mass/Vol] 22 8-60 ng/dL Normal 2019 [facility] (96719) Comment: Result Comment: (NOTE) ADDITIONA L INFORMATION Testing performed by Liquid Chromatography-Tandem Mass Spectrometry (LC-MS/MS). This test was developed and its performance characteristics determined by [facility] in a manner consistent with CLIA requirements. This test has not been cleared or approved by the U.S. Food and Drug Admin istration. Performed By: #### TFTEST ## ## [facility] [address] [place] [address] Testosterone, Free 0.22 0.06-0.92 ng/dL Normal 08-16-2019 [facility] (32541) Comment: Result Comment: (NOTE) ADDITIONA L INFORMATION Testing performed by [facility]. This test was developed and its performance characteristics determined by [facility] in a manner consistent with CLIA requirements. This test has not been cleared or approved by the U.S. Food and Drug Admin istration. Performed By: #### TFTEST ## ## [facility] [address] [place] [address] t4/fti on 2019-07-27 2 FTI 5.1 5.3-10.8 ug/dL Low 08-16-2019 [facility] (17601) Comment: Performed By: #### DHEAS, TD, PROG, E2 #### [place] [phone] #### EST #### [facility] [address] [place] [address] [phone] T4 [Mass/Vol] 5.5 5.5-10.2 ug/dL Normal 08-16-2019 [facility] (52801) Comment: Performed By: #### DHEAS, TD, PROG, E2 #### [place] [phone] #### EST #### [facility] [address] [place] [address] [phone] T4 Uptake 1.08 0.91-1.19 Normal 08-16-2019 [facility] (65119) Comment: Performed By: #### DHEAS, TD, PROG, E2 #### [place] [phone] #### EST #### [facility] [address] [place] [address] [phone] t3 on 2019-08-16 T3 102 79-165 ng/dL Normal 08-16-2019 [facility] (23811) Comment: Performed By: #### DHEAS, TD, PROG, E2 #### [address] [place] [phone] #### EST #### [facility] [address] [place] [address] [phone] progress on 2019-07 PROGRESS HNO ID: [id number] Normal 08-16-2019 [facility] Author: Hugo Dixon ([id number]) Service: ? Author Type: Physician Type: Progress [...] therapy. She has seen numerous endo and buffet runner physicians and has been tried on numerous [...] cream that she had gotten fro m buffet runner previously. We had ordered progesterone orally previously [...] metformin with possible pcos. She spoke with buffet runner department who recommended endometrial bi opsy. I [...] stroke - Colon Cancer Father age 64 SD - Diabetes Father Type 2 - Hypertension Father - Coronary Artery Disease Father Hx of SD - Thyroid Sister hx of parathyroid disease/ [...] Hypothyroidism, acquired - ICD9: 244.9, ICD10: E03.9 ([facility] diagnosis) - recheck labs. - TSH BLD [...] info from our visit a long to buffet runner. Reiterated to her that I would prefer [...] more than 50% of the t otal iqnf-dr-xidt time of the visit in counseling / coordination of care. progesterone on Progesterone 0.3 ng/mL Normal 08-16-2019 [facility] (64685) Comment: Result Comment: Menstrual Cy soy Progesterone Reference Ranges: Follicular:<1.0 ng/mL Ovulation:<12.1 ng/mL Luteal:1.8 to 23.9 ng/mL Progesterone Refer ence Ranges vary by gestational period: First Trimester:11.0 to 44.3 ng/mL Second Trimester:25.4 to >60 .0 ng/mL Third Trimester:58.7 to >60. 0 ng/mL Post menopausal Progesterone :<0.5 ng/mL Reference: 1. Progesterone ( Progesterone III) [package insert V 1.0 Latvian]. [facility], [place], [place]. January 2015. Performed By: #### DHEAS, TD, PROG, E2 #### [facility] [facility] [address] [place], [place] [address] #### EST #### [facility] [address] [place] [address] [phone] estrone on Estrone 23.7 pg/mL Normal 08-16-2019 [facility] ([id number]) Comment: Result Comment: (NOTE) Females: Pre-menopausal: Early follic ular <150.0 pg/mL Pre-menopausal: Late follicu lar 100.0-250.0 pg/mL Pre-menopausal: Luteal <200. 0 pg/mL Post-menopausal 3.0-32.0 pg/ mL REFERENCE INTERVAL: Estrone by TMS Access complete set of age- and/or gender-specific reference intervals for this test in [facility] Test Directory ([employer]). Test developed and character istics determined by [employer]. See Compliance Statement B: [employer]/ Performed by [facility] , [address] [place] [address] 8410 www.[employer], Wilner Saenz do, MD, Lab. Director Performed By: #### DHEAS, TD, PROG, E2 #### [facility] s [address] [address] #### EST #### [address] [address] [phone] estradiol-17b on 13-08-21 Estradiol-17B <25 Normal 08-16-2019 [facility] ([id number]) Comment: Result Comment: This test is not [...] E2 (Estradiol III) [package insert V 3.0 Latvian]. [facility], [place], [place], September 2015. Performed By: #### DHEAS, TD, PROG, E2 #### [facility] [address] [address] #### EST #### [address] [address] [phone] cnpn on 2019-08-16 [facility] Normal 08-16-2019 [place] GARZONJAZLYN Antonieta ([id number]) 1965 [facility] Time Provider Department ([id number]) 08/16/19 HUGO NAVA During your visit today, [...] Hives Date Reviewed: 08/15/2019 Reviewed by: Ofe ([facility]) Yoel - Fully Assessed Reason for [...] 08/23/19 progress on 2019-07 PROGRESS HNO ID: [id number] Normal 08-15-2019 [place] Author: Ofe Randhawa) [facility] Service: ? [place] Author Type: Nurse Practitioner ([id number]) Type: Progress Notes Filed: 08/15/2019 3:01 PM [...] elsewhere. She has seen endocr inology at [facility], she was started on metformin for [...] stroke - Colon Cancer Father age 64 SD - Diabetes Father Type 2 - Hypertension Father - Coronary Artery Disease Father Hx of SD - Thyroid Sister hx of parathyroid disease/ [...] on the phone with pt Ofe Garcia APRN.BLACK TOP MACHINE OPERATOR progress on 2019-07 PROGRESS HNO ID: [id number] Normal 08-10-2019 [facility] Author: Hugo Nava [place] ([id number]) Service: ? Author Type: Physician Type: Progress [...] stroke - Colon Cancer Father age 64 SD - Diabetes Father Type 2 - Hypertension Father - Coronary Artery Disease Father Hx of SD - Thyroid Sister hx of parathyroid disease/ [...] Qn 0.989 0.270-4.200 uU/mL Normal 07-21-2019 [facility] ([id number]) Comment: Performed By: #### DHEAS, TD, PROG, E2 #### [facility] [address] [place], [place] [address] #### EST #### [facility] [address] [place] [address] [phone] estrone on Estrone 25.5 pg/mL Normal 07-21-2019 [facility] ([id number]) Comment: Result Comment: (NOTE) Females: Pre-menopausal: Early follic ular <150.0 pg/mL Pre-menopausal: Late follicu lar 100.0-250.0 pg/mL Pre-menopausal: Luteal <200. 0 pg/mL Post-menopausal 3.0-32.0 pg/ mL REFERENCE INTERVAL: Estrone by TMS Access complete set of age- and/or gender-specific reference intervals for this test in t [facility] Test Directory ([employer]). Test developed and character istics determined by [employer]. See Compliance Statement B: [employer]/ Performed by [facility] , [address] [place], [place] 84[address] www.[employer], Wilner Saenz do, MD, Lab. Director Performed By: #### DHEAS, TD, PROG, E2 #### [facility] [address] [place] [phone] #### EST #### [facility] [address] [place] [address] [phone] estradiol-17b on 13-07-26 Estradiol-17B 46 pg/mL Normal 07-21-2019 [facility] ([id number]) Comment: Result Comment: This test is not [...] E2 (Estradiol III) [package insert V 3.0 Latvian]. [facility], [place], [place], September 2015. Performed By: #### DHEAS, TD, PROG, E2 #### [facility] [address] [place], [place] [address] #### EST #### [facility] [address] [place] [address] [phone] cnpn on 2019-07-12 [facility]) Normal 07-12-2019 [place] [facility] JAZLYN GARZON ([id number]) 1965 F [place] Date Time Provider Department ([id number]) 07/12/19 HUGO NAVA [facility] During your visit today, we recorded the following informati on about you: Samantha Simon RN 07/12/2019 4:57 PM Signed [employer] calling to say patient needs prior auth for Vivel le-Dot. PRIOR AUTHORIZATION Medication for Prior Authorization: Vivelle-Dot Other formulary meds available : NO Insurance Company: [employer] phone number: Patient insurance ID number: [id number] Samantha Nava MD 07/12/2019 5:00 PM Signed She cannot tolerate generic. Is able to take francesco Albright Ma 07/13/2019 9:20 AM Signed -Prior Authorization has been completed online at [employer] for vivelle-dot patches, will await response. MONDRAGON- [id number] Please keep encounter open until final decision has been rec eived and documented from insurance company. Nayeli Fitch LPN 07/31/2019 1:11 PM Signed Received below response from [employer]: Allergies As of Date: 07/12/2019 Noted Allergy [...] Fully Assessed Reason for Visit: Insurance Authorization [[id number]] Cmt: Vivelle-Dot patches Reason For Visit History [...] on 2019-07-05 CNPN Telephone ([facility]) Normal 07-05-2019 [place] JAZLYN Jones ([id number]) 1965 [facility] Date Time Provider Department ([id number]) 07/05/19 3:00 PM HUGO NAVAWS During your [...] one yane. Also saw yane Neves in [place]. They are planning on setting her up [...] stroke - Colon Cancer Father age 64 SD - Diabetes Father Type 2 - Hypertension Father - Coronary Artery Disease Father Hx of SD - Thyroid Sister hx of parathyroid disease/ [...] OBSOLETE Refill ([facility]) Normal 06-27-2019 Soy cortez [facility] JAZLYN GARZON ([id number]) 1965 [facility] Date Time Provider Department ([id number]) 06/27/19 HUGO NAVA During your visit today, [...] 06/27/19 progress on 2019-06 PROGRESS HNO ID: [id number] Normal 06-26-2019 [place] Author: Ha Ortiz [facility] Service: ? [place] Author Type: Physician ([id number]) Type: Progress Notes Filed: 06/26/2019 9:23 AM [...] stroke - Colon Cancer Father age 64 SD - Diabetes Father Type 2 - Hypertension Father - Coronary Artery Disease Father Hx of SD - Thyroid Sister hx of parathyroid disease/ [...] 50 mg capsule Take 1 capsule by [facility] twice daily. (Patient not taking: Reported [...] year old female is being evaluated via [employer] [facility] for abnormal screenign etst for [...] 324 ug/d 251 Epinephrine, Ur ratio to SUPERVISOR INSECTICIDE 0 - 20 ug/g SUPERVISOR INSECTICIDE 6 Norepinephrine, Ur ratio to SUPERVISOR INSECTICIDE 0 - 45 ug/g SUPERVISOR INSECTICIDE 46 (H) Dopamine, Ur ratio to SUPERVISOR INSECTICIDE 0 - 250 ug/g SUPERVISOR INSECTICIDE 194 Catecholamines Interpretation SEE NOTE Epinephrine, Ur [...] ug/d 46.3 (H) 48.8 (H) Cortisol ug/g Clinical Studies Specialist, Ur (UFRCRT) ug/g SUPERVISOR INSECTICIDE 32.74 33.64 Free Cortisol UR, Interpretation SEE [...] 2.3 Percent free calculation not provided by [employer]. Testosterone Free 0.06 - 0.92 ng/dL 8.8 [...] 7.2 progress on 2019-05 PROGRESS HNO ID: [id number] Normal 06-19-2019 [facility] Author: Hugo Nava [place] ([id number]) Service: ? Author Type: Physician Type: Progress [...] two days ago. She is going to orange picker her progesterone today. Again we hav [...] 50 mg capsule Take 1 capsule by [facility] twice daily. (Patient not taking: Reported [...] stroke - Colon Cancer Father age 64 SD - Diabetes Father Type 2 - Hypertension Father - Coronary Artery Disease Father Hx of SD - Thyroid Sister hx of parathyroid disease/ [...] 2019-06-19 CNOV Office Visit ([facility]) Normal 06-19-19 [place] [facility] FLORAJAZLYN Reveles ([id number]) 1965 [facility] Date Time Provider Department ([id number]) 06/19/19 10:40 AM HUGO NAVA During your [...] two days ago. She is going to orange picker her progesterone today. Again we have [...] stroke - Colon Cancer Father age 64 SD - Diabetes Father Type 2 - Hypertension Father - Coronary Artery Disease Father Hx of SD - Thyroid Sister hx of parathyroid disease/ [...] 06/19/19 progress on 2019-05 PROGRESS HNO ID: [id number] Normal 06-16-2019 [facility] Author: Michelle Andrea (Tech) [place] ([id number]) Service: ? Author Type: High Lift Operator Type: Progress Notes Filed: 06/16/2019 1:48 PM [...] * * *Final Report* * * Normal [facility] DATE OF EXAM: Jun 16 2019 1:18PM [place] ([id number]) [facility] 0581 - ROSALIE SCREENING / PROCEDURE REASON: Screening breast examination * * * * Physician Interpretation * * * * RESULT: #[id number] - ROSALIE SCREENING BILATERAL DIGITAL SCREENING MAMMOGRAM [...] mammogram, 06/07 mammogram, and 01/21/2012 mammogram - [facility]. There are scattered fibroglandular elements in both [...] is recommended. Gabriella White M.D. pt/lolis:06/16/2019 13:52:33 Pediatric Anesthesiologist(s): RT Emre(R)(M), [facility] letter sent: Normal over 40 Mammogram BI-RADS: [...] Health, Family Medicine, and Medical/Surgical Oncology, the [facility] has carefully reviewed the data and [...] providers when to sto p screening mammograms. Shredding Specialist: Lolis Transcribe Date/Time: Jun 16 2019 12:55P Dictated by: GABRIELLA WHITE MD This examination was interpreted and the report reviewed and electronically signed by: GABRIELLA WHITE MD on Jun 16 2019 1:52PM EST [id number] cnco on 2019-06-16 CNCO HNO ID: [id number] Normal 06-16-2019 [facility] Author: Mammography Coordinator ([id number]) Service: ? Author Type: Physician Type: Letter Filed: 06/19/2019 11:34 PM Note Text: June 16, 2019 PID: [id number] Jazlyn [place] Garzon [address] [place] [address] Dear Sarah Garzon, We are pleased to [...] report will be kept on file at [facility] as part of your permanent medical record and are available f or your continuing care. Thank you for allowing us to help in meeting your health car e needs. Sincerely, Dr. White Interpreting Radiologist [facility] (Normal over 40) vitamin d 25 hydroxy on 2019-06-15 Vitamin D 25 Hydroxy 20.7 31.0-80.0 ng/mL Low 0 [facility] ([id number]) Comment: Result Comment: Classificati on of 25 [place] Vitamin D status: Insufficiency/Moderate Defic iency: < or = 30 ng/mL Sufficiency/Optimal Levels: 31 to 80 ng/mL Toxicity: > 100 ng/mL Test performed by chemilumin escent immunoassay. Performed By: #### DHEAS, TD, PROG, E2 #### [facility] [address] [place], [place] [address] #### EST #### [employer] [address] [place] [phone] testosterone, tot/fr on 2019-06-15 Testosterone [Mass/Vol] 30 8-60 ng/dL Normal 2019 [facility] ([id number]) Comment: Result Comment: (NOTE) ADDITIONA L INFORMATION Testing performed by Liquid Chromatography-Tandem Mass Spectrometry (LC-MS/MS). This test was developed and its performance characteristics determined by [facility] in a manner consistent with CLIA requirements. This test has not been cleared or approved by the U.S. Food and Drug Admin istration. Performed By: #### TFTEST ## ## [facility] [address] [place] [address] Testosterone, Free 0.42 0.06-0.92 ng/dL Normal 06-15-2019 [facility] ([id number]) Comment: Result Comment: (NOTE) ADDITIONA L INFORMATION Testing performed by [facility]. This test was developed and its performance characteristics determined by [facility] in a manner consistent with CLIA requirements. This test has not been cleared or approved by the U.S. Food and Drug Admin istration. Performed By: #### TFTEST ## ## [facility] [address] [place] [address] progesterone on 202 Progesterone 0.6 ng/mL Normal 06-15-2019 [facility] ([id number]) Comment: Result Comment: Menstrual Cy soy Progesterone Reference Ranges: Follicular:<1.0 ng/mL Ovulation:<12.1 ng/mL Luteal:1.8 to 23.9 ng/mL Progesterone Refer ence Ranges vary by gestational period: First Trimester:11.0 to 44.3 ng/mL Second Trimester:25.4 to >60 .0 ng/mL Third Trimester:58.7 to >60. 0 ng/mL Post menopausal Progesterone :<0.5 ng/mL Reference: 1. Progesterone ( Progesterone III) [package insert V 1.0 Latvian]. [facility], [place], [place]. January 2015. Performed By: #### DHEAS, TD, PROG, E2 #### [facility] s [address] [place], [place] [address] #### EST #### [facility] [address] [place] [address] [phone] estrone on Estrone 25.2 pg/mL Normal 06-15-2019 [facility] ([id number]) Comment: Result Comment: (NOTE) Females: Pre-menopausal: Early follic ular <150.0 pg/mL Pre-menopausal: Late follicu lar 100.0-250.0 pg/mL Pre-menopausal: Luteal <200. 0 pg/mL Post-menopausal 3.0-32.0 pg/ mL REFERENCE INTERVAL: Estrone by [facility] Access complete set of age- and/or gender-specific reference intervals for this test in [facility] [employer] [facility] Test Directory ([employer]). Test developed and character istics determined by [employer]. See Compliance Statement B: [employer]/ Performed by [facility] , [address] [place], [place] [address] www.[employer], Wilner Saenz do, MD, Lab. Director Performed By: #### DHEAS, TD, PROG, E2 #### [facility] [address] [place], [place] [address] #### EST #### [facility] [address] [address] [phone] estradiol-17b on 15-06-19 Estradiol-17B <25 Normal 06-15-2019 [facility] ([id number]) Comment: Result Comment: This test is not [...] E2 (Estradiol III) [package insert V 3.0 Latvian]. [employer], [place], [place], September 2015. Performed By: #### DHEAS, TD, PROG, E2 #### [facility] [address] [place], [place] [address] #### EST #### [facility] [address] [place] [address] [phone] dhea-s on 2019-05-28 0 DHEA-S 22.7 35.4-256.0 ug/dL Low 06-15-2019 [facility] ([id number]) Comment: Result Comment: Reference ra nges are age and gender specific. For additional information, reference range tables can be found in the laboratory test directory. The normal values are based on the following source: Dehydroepiandrosterone sulfate (DHEA S) [package insert V 17.0 Latvian]. [facility], [place], [place]: November 2012. Performed By: #### DHEAS, TD, PROG, E2 #### [address] [place], [place] [address] #### EST #### [facility] [address] [place], [place] [id number] [phone] cortisol on 2019-05 Cortisol 34.0 ug/dL Normal 06-15-2019 [facility] ([id number]) Comment: Result Comment: Cortisol Ref erence Range: AM = 5.3-22.5, PM = 3.4-16.8 Performed By: #### DHEAS, TD, PROG, E2 #### [facility] s [address] [place], [place] [address] #### EST #### [facility] [address] [place], [place] [id number] [phone] acth on 2019-06-15 ACTH 25 <47 pg/mL Normal 06-15-2019 [facility] ([id number]) Comment: Performed By: #### DHEAS, TD, PROG, E2 #### [facility] [address] [place], [place] [address] #### EST #### [facility] [address] [place] [address] [phone] progress on 2019-05 PROGRESS HNO ID: [id number] Normal 06-14-2019 [facility] Author: Hugo Nava [place] ([id number]) Service: ? Author Type: Physician Type: Progress [...] finally get her vivelle-dot since insurance was [employer]. She has not started it yet due to stresses at home. Her daughter had a tubal and her aunt is dying in hospice. She requests a r efill of xanax to get through the next few weeks. Checked oarrs. She is gelacio re of risks of meds. ? Since here last has seen gi and buffet runner. Wanted to have scopes p erformed by Dr. Hernandez. She states she will be getting these done. Antione wheat, has been intolerant of any class of gi meds. ? She still has an extensive list of symptoms including skin b urning, reflux. Fatigue, dizziness, abdominal fullness. Again, she has seen an extensive number of specialists toyin smith from endo, gi, surgery, pulmonary, cardiology, buffet runner, rheumatology, funct ional medicine, neurology, etc. She has had extensive testing. The one consistent thing is that when she can tolerate hormones, she feels relatively normal. The difficult thing is that she has been unable to tolerate much press tender long goods. We have had extensive discussions a bout [...] previously offered to have her see an poultry pinner at a tertiary center like [facility] or [facility] or , however, she prefers t o [...] Urine <=45.0 ug/d 48.8 (H) Cortisol ug/g Clinical Studies Specialist, Ur (UFRCRT) ug/g SUPERVISOR INSECTICIDE 33.64 Free Cortisol UR, Interpretation SEE NOTE [...] 50 mg capsule Take 1 capsule by [facility] twice daily. (Patient not taking: Reported [...] stroke - Colon Cancer Father age 64 SD - Diabetes Father Type 2 - Hypertension Father - Coronary Artery Disease Father Hx of SD - Thyroid Sister hx of parathyroid disease/ [...] 2019-06-14 CNOV Office Visit (FAMPWS) Normal 06-14-19 [place] JAZLYN Jones ([id number]) 1965 [facility] Date Time Provider Department ([id number]) 06/14/19 1:00 PM HUGO NAVA During your [...] providers. 05/24/2019 She did finally get her [employer] [place] insurance was being diffult. She has not started it yet due to stresses at [employer] [facility]. Her daughter had a tubal and her aunt is dying in [facility]. She requests a refill of xanax to get through the next few weeks. Checked oarrs. She is aware of risks of meds. ? Since here last has seen gi and buffet runner. Wanted to have scopes performed by Dr. Hernandez. She states she will be getting these done. Again, has been intolerant of any class of gi meds. ? She still has an extensive list of symptoms including skin burning, reflux. Fatigue, dizziness, abdominal fullness. Again, she has seen an extensive number of speci alists ranging from endo, gi, surgery, pulmonary, cardiology, buffet runner, rheumatology, functiona l medicine, neurology, etc. She has had extensive testing. The one consistent thing is that when she can tolerate hormones, she feels relatively normal. The difficult thing is that she has been unable to tolerate much nursing home . We have had extensive discussions about [...] reviously offered to have her see an poultry pinner at a tertiary center like [facility] or [facility] or , however, she prefers to have [...] Urine <=45.0 ug/d 48.8 (H) Cortisol ug/g Clinical Studies Specialist, Ur (UFRCRT) ug/g SUPERVISOR INSECTICIDE 33.64 Free Cortisol UR, Interpretation SEE NOTE [...] stroke - Colon Cancer Father age 64 SD - Diabetes Father Type 2 - Hypertension Father - Coronary Artery Disease Father Hx of SD - Thyroid Sister hx of parathyroid disease/ [...] tabletRfl: 5 DHEA-S BLD [SQDHEAS] Order #: [id number] FUTURE VITAMIN D 25 HYDROXY [SQVITD] Order #: [id number] FUTURE PROGESTERONE BLD [SQPROG] Order #: [id number] FUTURE Prescriptions as of 06/14/2019 Sig: SYNTHROID [...] Qn 2.610 0.270-4.200 uU/mL Normal 06-05-2019 [facility] ([id number]) Comment: Performed By: #### DHEAS, TD, PROG, E2 #### [facility] [address] [place] [phone] #### EST #### [facility] [address] [place] [address] [phone] period and volume o n 2019-05-25 Period 24 hr Normal 05-25-2019 [facility] ([id number]) Comment: Performed By: #### DHEAS, TD, PROG, E2 #### [facility] [address] [place] [phone] #### EST #### [facility] [address] [place] [address] -[phone] Volume 3300 mL Normal 05-25-2019 [facility] ([id number]) Comment: Performed By: #### DHEAS, TD, PROG, E2 #### [facility] [address] [place] [phone] #### EST #### [facility] [address] [place] [address] -[address] creatinine,urine,24h on 2019-05-25 Creatinine,Urine,24h 1.452 0.8-1.8 g/24 hr Normal 0 [facility] ([id number]) Comment: Performed By: #### DHEAS, TD, PROG, E2 #### [facility] [address] [place] [phone] #### EST #### [facility] [address] [place] [address] [phone] progress on 2019-04 PROGRESS HNO ID: [id number] Normal 05-24-2019 [facility] Author: Hugo Dixon ([id number]) Service: ? Author Type: Physician Type: Progress Notes Filed: 05/24/2019 5:24 PM Note Text: Patient presents with: Dizziness HPI: Patient presents today for office visit for follow up. She did finally get her vivelle-dot since insurance was [employer]. She has not started it yet due to stresses at home. Her daughter had a tubal and her aunt is dying in hospice. She requests a r efill of xanax to get through the next few weeks. Checked oarrs. She is gelacio re of risks of meds. Since here last has seen gi and buffet runner. Wanted to have scopes p erformed by Dr. Hernandez. She states she will be getting these done. Antione wheat, has been intolerant of any class of gi meds. She still has an extensive list of symptoms including skin b urning, reflux. Fatigue, dizziness, abdominal fullness. Again, she has seen an extensive number of specialists toyin smith from endo, gi, surgery, pulmonary, cardiology, buffet runner, rheumatology, funct ional medicine, neurology, etc. She has had extensive testing. The one consistent thing is that when she can tolerate hormones, she feels relatively normal. The difficult thing is that she has been unable to tolerate much press tender long goods. We have had extensive discussions a bout [...] previously offered to have her see an poultry pinner at a tertiary center like [facility] or [facility] or , however, she prefers t o [...] 25 mg tablet Take 1 tablet by [facility] once daily as needed. - Estradiol [...] stroke - Colon Cancer Father age 64 SD - Diabetes Father Type 2 - Hypertension Father - Coronary Artery Disease Father Hx of SD - Thyroid Sister hx of parathyroid disease/ [...] cm nodule not noted on previous ct(06/14)-seen [facility] ER ct-08/25/18, repeat ct in 04/13 adrenal described as normal. Extensive review shows she had a 1.4 cm adrenal thickening i ntermittently noted dating back to at least 2012. Has seen endo and neuroe ndo surg for the same. Would not rework up unless changes. Hugo Nava MD cnov on 2019-05-24 CNOV Office Visit (FAMPWS) Normal 05-24-19 20 [place] JAZLYN Jones ([id number]) 1965 [place] Date Time Provider Department ([id number]) 05/24/19 3:20 PM HUGO NAVA During your visit today, we recorded the following informati on about you: Pulse Blood pressure Weight 96/minute 142/82 90.3 kg Sudha Pink INTELLIGENCE AGENT 05/24/2019 3:36 PM Signed For about 4-5 [...] follow up. She did finally get her [employer] [place] insurance was being diffult. She has not started it yet due to stresses at [employer] [facility]. Her daughter had a tubal and her aunt is dying in [facility]. She requests a refill of xanax to get through the next few weeks. Checked oarrs. She is aware of risks of meds. Since here last has seen gi and buffet runner. Wanted to have scopes performed by Dr. Hernandez. She states she will be getting these done. Again, has been intolerant of any class of gi meds. She still has an extensive list of symptoms including skin burning, reflux. Fatigue, dizziness, abdominal fullness. Again, she has seen an extensive number of speci alists ranging from endo, gi, surgery, pulmonary, cardiology, buffet runner, rheumatology, functiona l medicine, neurology, etc. She has had extensive testing. The one consistent thing is that when she can tolerate hormones, she feels relatively normal. The difficult thing is that she has been unable to tolerate much press tender long goods . We have had extensive discussions about [...] reviously offered to have her see an poultry pinner at a tertiary center like [facility] or [facility] or , however, she prefers to have [...] stroke - Colon Cancer Father age 64 SD - Diabetes Father Type 2 - Hypertension Father - Coronary Artery Disease Father Hx of SD - Thyroid Sister hx of parathyroid disease/ [...] nodule not noted on previous ct(06/14)-se en [facility] ER ct-08/25/18, repeat ct in 04/13 [...] capsuleRfl: 2 ESTRADIOL-17B BLD [SQE2] Order #: [id number] STANDING ESTRONE BLD [SQEST] Order #: [id number] STANDING TESTOSTERONE, FREE AND TOTAL [SQFTESTO] Order #: [id number] STANDING ALPRAZolam (XANAX) 1 mg tabletTake 1 [...] 08/25/2018 More... Visit Notes: >> Sudha Pink INTELLIGENCE AGENT WedMay 24, 2019 3:29 PM Status: Signed [...] mouth 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 Disc: Reason for discontinue is not on file. Disposition: Return in about 4 weeks (around 06/21/2019). Follow-up and Disposition History Recorded Encounter Status:Closed by HUGO NAVA MD on 05/24/19 urinalysis with microscopic on 2019-05-12 Bilirubin, Urine Negative Negative Normal 05-12-2019 [facility] ([id number]) Comment: Performed By: #### TFTEST ## ## [facility] [address] [place] [id number] Clarity (U) Clear Clear Normal 05-12-2019 [facility] (08140) Comment: Performed By: #### TFTEST ## ## [facility] [address] [place] [address] Color (U) Yellow Yellow Normal 05-12-2019 [facility] (07950) Comment: Performed By: #### TFTEST ## ## [facility] [address] [place] [address] Comments SEE COMMENT Normal 05-12-2019 [facility] (32840) Comment: Result Comment: N/A Performed By: #### TFTEST ## ## [facility] [address] [place] [address] Epithelial cells LM.HPF SEE COMMENT Normal 04-26 [facility] (Urine sed) [#/Area] [place] (86767) Comment: Result Comment: Few Squamous Epithelial Cells Performed By: #### TFTEST ## ## [facility] [address] [place] [address] Glucose Ql (U) Negative Negative Normal 05-12-2019 [facility] (41241) Comment: Performed By: #### TFTEST ## ## [facility] [address] [place] [address] Hemoglobin/Blood,Ur 1+ Negative Critically abnormal 05-12-2019 [facility] (24240) Comment: Performed By: #### TFTEST ## ## [facility] [address] [place] [address] Ketones Ql (U) Negative Negative Normal 05-12-2019 [facility] (16499) Comment: Performed By: #### TFTEST ## ## [facility] [address] [place] [address] Leukest Negative Negative Normal 05-12-2019 [facility] (37428) Comment: Performed By: #### TFTEST ## ## [facility] [address] [place] [address] Nitrite Ql (U) Negative Negative Normal 05-12-2019 [facility] (44298) Comment: Performed By: #### TFTEST ## ## [facility] [address] [facility] [address] [place] [address] pH (Bld) 6.0 4.5-8.0 Normal 05-12-2019 [facility] (96544) Comment: Performed By: #### TFTEST ## ## [facility] [address] [place] [address] Protein (U) [Mass/Vol] Negative Negative mg/dL Normal [facility] (50955) Comment: Performed By: #### TFTEST ## ## [facility] [address] [place] [address] RBC (U) [#/Vol] 0-3 0-3 Normal 05-12-2019 [facility] (62144) Comment: Performed By: #### TFTEST ## ## [facility] [address] [place] [address] Specific [place], Ur 1.010 1.005-1.030 Normal [facility] (34830) Comment: Performed By: #### TFTEST ## ## [facility] [address] [place] [address] Urine Vladimir Comment SEE COMMENT Normal 05-12-2019 [facility] (19483) Comment: Result Comment: N/A Performed By: #### TFTEST ## ## [facility] [address] [place] [address] Urobilinogen Qn (U) Normal Normal Normal 05-12-2019 [facility] (07277) Comment: Performed By: #### TFTEST ## ## [facility] [address] [place] [address] WBC (Bld) [#/Vol] 0-5 0-5 Normal 05-12-2019 [facility] (66836) Comment: Performed By: #### TFTEST ## ## [facility] [address] [place] [address] progress on 2019-04 PROGRESS HNO ID: [id number] Normal 05-12-2019 [facility] Author: Antonieta Esqueda (PaGenoC) [facility] (33177) Service: ? Author Type: Physician Hr Shared Services Consultant Type: Progress Notes Filed: 05/12/2019 6:18 PM [...] stroke - Colon Cancer Father age 64 SD - Diabetes Father Type 2 - Hypertension Father - Coronary Artery Disease Father Hx of SD - Thyroid Sister hx of parathyroid disease/ [...] 25 mg tablet Take 1 tablet by [facility] once daily as needed. 10 tablet [...] (WOOB) Normal 05-12-2019 Yusef mckeon JAZLYN Jones ([id number]) 1965 [facility] Date Time Provider Department ([id number]) 05/12/19 8:00 AM ZOË DEJESUS WOOB During your visit today, we recorded the following informati on about you: Referring Provider: MIREYA BARRERA ([facility]) [[id number]] Allergies As of Date: 05/12/2019 Noted Allergy [...] Ma - Fully Assessed Reason for Visit: COUNTY ENGINEER Ultrasound [[id number]] Primary Visit Diagnosis:Cyst of right ovary [N83.201] [...] 2019-05-12 CNOV Office Visit (FAMPWS) Normal 05-12-19 [place] JAZLYN Jones ([id number]) 1965 [facility] Date Time Provider Department ([id number]) 05/12/19 1:40 PM [facility] CEJA[facility] your visit today, we recorded [...] stroke - Colon Cancer Father age 64 SD - Diabetes Father Type 2 - Hypertension Father - Coronary Artery Disease Father Hx of SD - Thyroid Sister hx of parathyroid disease/ [...] - Rectocele 05/13/2009 - SVT (supraventricular tachycardia) ([facility]) - Syncope 05/14/2013 -Reported that she had [...] ) - lancets (FREESTYLE LANCETS) [facility] T IMES DAILY DIRECTED [...] Diagnosis:Lower abdominal pain [R10.30] Order(s):UA DIP B/O [1482559] Order #: [id number] UA DIP, URINE (POC) [0410808] Order #: [id number]. #:[id number] URINALYSIS WITH MICROSCOPIC [SQUAWMIC] Order #: [id number] ec. #:[id number] Prescriptions as of 05/12/2019 Sig: SYNTHROID 137 [...] on 2019-04 OBSOLETE Refill (FAMPWS) Normal 05-09-2019 [facility] JAZLYN Jones ([id number]) 1965 [facility] Time Provider Department (88323) 05/09/19 HUGO NAVA FAMPWS During your visit today, we recorded the following informati on about you: Katlyn Mills LPN 05/09/2019 11:03 AM Signed [facility] faxed a request for the following [...] 05/09/19 progress on 2019-04 PROGRESS HNO ID: [id number] Normal 05-05-2019 [facility] Author: Melissa Silva [place] ([id number]) Service: ? Author Type: Nurse Practitioner Type: [...] right lower quadrant d escribed as cramping. COUNTY ENGINEER: Negative for abnormal vaginal bleeding, abnormal vagina [...] stroke - Colon Cancer Father age 64 SD - Diabetes Father Type 2 - Hypertension Father - Coronary Artery Disease Father Hx of SD - Thyroid Sister hx of parathyroid disease/ [...] 25 mg tablet Take 1 tablet by [facility] once daily as needed. 10 tablet [...] with more than 50% of the total pizf-ld-byol t giancarlo of the visit in counseling / coordination of care. Melissa Silva RN APRN.DHIRAJ españaov on 2019-05-05 CNOV Office Visit ([facility]) Normal 05-05-19 [place] [facility] JAZLYN GARZON ([id number]) 1965 [facility] Date Time Provider Department ([id number]) 05/05/19 8:40 AM MELISSA SILVA [facility] During your visit today, we recorded the following informati on about you: Pulse Blood pressure Weight Height 103/minute 138/92 89.8 kg 1.575 m Melissa Silva RN APRN.BLACK TOP MACHINE OPERATOR 05/05/2019 9:13 AM Signed Jazlyn Garzon a [...] and right lower quadrant described as cramping. COUNTY ENGINEER: Negative for abnormal vaginal bleeding, abn ormal [...] stroke - Colon Cancer Father age 64 SD - Diabetes Father Type 2 - Hypertension Father - Coronary Artery Disease Father Hx of SD - Thyroid Sister hx of parathyroid disease/ [...] with more than 50% of the total ncok-tl-zvwa time of the visit in counseling / coordination of care. Melissa Silva RN PSYCH SPECIALIST.DHIRAJ Silva RN APRN.DHIRAJ 05/05/2019 9:02 AM Signed [...] Visit Diagnosis:Family history of colon cancer in [facility] er [Z80.0] Prescriptions as of 05/05/2019 [...] Qn 5.060 0.270-4.200 uU/mL High 05-02-2019 [facility] (90694) Comment: Performed By: #### TSH ####C [facility] [place] [facility] [address] [place], [place] [phone] progress on 2019-04 PROGRESS HNO ID: [id number] Normal 05-02-2019 [facility] Author: Antonieta Esqueda (Gregorio) Marcial Dixon ([id number]) Service: ? 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 Was started on Zithromax. Sx first a week before [place]. Nephew had pneumonia. No fever. Cough, wheezing. [...] stroke - Colon Cancer Father age 64 SD - Diabetes Father Type 2 - Hypertension Father - Coronary Artery Disease Father Hx of SD - Thyroid Sister hx of parathyroid disease/ [...] 2019-05-02 CNOV Office Visit (FAMPWS) Normal 05-02-[address] [place] [address] JAZLYN Jones ([id number]) 1965 [facility] Date Time Provider Department ([id number]) 05/02/19 8:00 AM Antonieta CEJA) FAMPWS During [...] wi th RLL per CXR 04/23/20 in [facility] ED. Was started on Zithromax. Sx [...] stroke - Colon Cancer Father age 64 SD - Diabetes Father Type 2 - Hypertension Father - Coronary Artery Disease Father Hx of SD - Thyroid Sister hx of parathyroid disease/ [...] is an infection of the bronchial (say: ?cylai-hwe-pgh?) tree. The bronchial tree is made u [...] talk to your family doctor. Copyright ? [id number] [place] [employer] Permission is granted [...] talk to your family doctor. Copyright ? [id number] [place] [employer] Permission is granted [...] Normal 04-20-2019 [place] GARZONJAZLYN Antonieta ([id number]) 1965 [facility] Time Provider Department (37138) 04/20/19 HUGO NAVA FAMPWS During your visit [...] 04/20/19 progress on 2019-03 PROGRESS HNO ID: [id number] Normal 04-12-2019 [facility] Author: Ivy Cleary [place] ([id number]) Service: ? Author Type: Psychologist Type: Progress Notes Filed: 04/12/2019 10:36 AM Note Text: [facility] Progress Note Jazlyn Garzon 04/11/2019 [id number] Provider: Ivy Steele PSYD CPT Code: 26338 Psychotherapy 38-52 minutes Time: Approximately 45 minutes [...] a routine culture is not recommended. Molecula (42282) r testing is the most sensit yocasta [...] instructions. Comment: Performed By: #### TSH #### [facility] [address] [place], [place] [address] progress on 2019-03 PROGRESS HNO ID: [id number] Normal 04-05-2019 [facility] Author: Ofe Randhawa) Yoel [place] ([id number]) Service: ? Author Type: Nurse Practitioner Type: [...] genitalia normal, normal Bartholin's glands , urethra, Seba Dalkai's glands, no vulvar lesions, no cervical lesions, phys iologic discharge present, normal appearing perineal body and perian al region Slight uterus prolapse??? BIMANUAL: uterus normal size, shape and consistency, no adne xal masses and non-tender. RECTOVAGINAL: deferred. ASSESSMENT/PLAN: 1. Vaginal irritation - ICD9: 623.9, ICD10: N89.8 (primary d iagnosis) - WOUND CULTURE AND GRAM STAIN- if negative pt to schedule w [facility] pelvic pain clinic 2. Pelvic pain in female - ICD9: 625.9, ICD10: R10.2 - CONSULT TO COUNTY ENGINEER PELVIC PAIN GIOVANNI Kent on 2019-04-05 CNOV Office Visit (WOOB) Normal 04-05-2019 [place] [facility] JAZLYN GARZON ([id number]) 1965 [facility] Date Time Provider Department (19882) 04/05/19 9:00 AM OFE GARCIA (DHIRAJ) WOOB [...] genitalia normal, redd l Bartholin's glands, urethra, Seba Dalkai's glands, no vulvar lesions, no cervical l [...] ICD9: 625.9, ICD10: R10.2 - CONSULT TO COUNTY ENGINEER PELVIC PAIN Ofe Garcia APRN.BLACK TOP MACHINE OPERATOR Referring Provider: SELF [200] Allergies As of [...] AND GRAM STAIN [SQWCUL] Order #: [id number] CONSULT TO COUNTY ENGINEER PELVIC PAIN [[id number]] Order #: [id number]: 1 FUTURE Prescriptions as of 04/05/2019 Sig: [...] 04/05/19 progress on 2019-03 PROGRESS HNO ID: [id number] Normal 04-03-2019 [facility] Author: Antonieta Esqueda (Pa-C) Marcial Dixon ([id number]) Service: ? Author Type: Physician Hr Shared Services Consultant Type: Progress Notes Filed: 04/03/2019 7:18 PM [...] stroke - Colon Cancer Father age 64 SD - Diabetes Father Type 2 - Hypertension Father - Coronary Artery Disease Father Hx of SD - Thyroid Sister hx of parathyroid disease/ [...] ICD9: 625.8, ICD10: N94.89 Follow up with COUNTY ENGINEER or Endo to discuss risk of unopposed estr ogen and possible treatment - HYOSCYAMINE 0.125 MG SUBLINGUAL TABLET 3. Swelling - ICD9: 782.3, ICD10: R60.9 Use diuretic prn sparingly. - CHLORTHALIDONE 25 MG TABLET 4. Hormone disturbance - ICD9: 259.9, ICD10: E34.9 As above M Dheeraj Ceja PA-C cnov on 2019-04-03 CNOV Office Visit (FAMPWS) Normal 04-03-20 19 [place] JAZLYN GARZON ([id number]) 1965 [place] Date Time Provider Department ([id number]) 04/03/19 11:20 AM Antonieta CEJA) CATHERINEPWS During [...] stroke - Colon Cancer Father age 64 SD - Diabetes Father Type 2 - Hypertension Father - Coronary Artery Disease Father Hx of SD - Thyroid Sister hx of parathyroid disease/ [...] ICD9: 625.8, ICD10: N94.89 Follow up with COUNTY ENGINEER or Endo to discuss risk of un [...] scan was negative ER F/U [41] Cmt: [facility] ER follow up 03/31/19 Reason For [...] mouth 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 CHLORTHALIDONE 25 MG TABLET 10 t* [...] Sp. Request/Comment: - Swab Redd l 03-31-2019 [facility] Smear Result - Negative for Trichomonas vaginalis antigen This test was developed and its performance characteristics determined by [facility]'s Isael Treviño [facility] [place] ([id number]) [place] ([facility]). It has not been cleared or approved by the FDA. [facility] is regulated under CLIA as qualified to perform high complexity testing. This test is used for clinical purposes. It should not be regarded as investigational or for research. Comment: Performed By: #### TFTEST ## ## [facility] [address] [place] [address] [place] [address] progress on 2019-03 PROGRESS HNO ID: [id number] Normal 03-31-2019 [place] Author: Mireya Benz) [facility] Service: ? 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 I stated this wa s [...] Chlamydia Amplif Negative for Chlamydia Normal 03-31-2019 [facility] trachomatis by Ari guevara ([id number]) amplification. Comment: Performed By: #### DHEAS, TD, PROG, E2 #### [facility] [address] [place] [address] #### EST #### [facility] [address] [place] [address] [phone] GC Amplification Negative for Neisseria Normal 03-31-2019 [facility] gonorrhoeae by Ari guevara (00328) amplification. Comment: Performed By: #### DHEAS, TD, PROG, E2 #### [facility] [address] [place] [address] #### EST #### [facility] [address] [place] [address] [phone] GC/Chlam Amp Source Cervix Normal 03-31-2019 [facility] (24351) Comment: Performed By: #### DHEAS, TD, PROG, E2 #### [facility] [address] [place], [place] [address] #### EST #### [facility] [address] [place] [address] [phone] cnov on 2019-03-31 CNOV Office Visit (WOOB) Normal 03-31-2019 [place] [facility] GARZONJAZLYN Antonieta ([id number]) 1965 [facility] Date Time Provider Department ([id number]) 03/31/19 1:40 PM MIREYA BARRERA ([facility]) WOOB During your visit today, we recorded the following informati on about you: Blood pressure Weight 132/94 87.5 kg Mireya Barrera APRN.CNM 04/04/2019 10:42 PM Signed Jazlyn Garzon is a 53 year ol d female who presents for problem visit with pelvic pain. HPI:Patient seen today as walk in visit with multiple compla ints. Has history of bacterial vaginosis. [facility] 3 [facility]. Estrogel [...] visit what patient was wanting addressed today. Clrai t rapidly goes from one topic to the next and becomes upset when askin g questions about complaints, history, and providers seen in the banner. 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 I sta geoff this was [...] [N89.8] Order(s):GC/CHLAMYDIA DNA DET [SQGCCAMP] Order #: [id number] Spec. #:[id number] BACT/NANCY VAG GRAM STAIN [SQBVCNSM] Order #: [id number] ec. #:[id number] TRICHOMONAS PREP [SQTRICHO] Order #: [id number]. #:[id number] [] fluconazole (DIFLUCAN) 150 mg [...] Sp. Request/Comment: - Swab Norm al 03-31-2019 [facility] ([id number]) Smear Result - Stain results consistent with normal vaginal ishmael. No Yeast observed Few Polymorphonuclear leukocytes Comment: Performed By: #### TFTEST ## ## [facility] [address] [place], [place] [id number] obsolete on 2019-03 OBSOLETE Refill (FAMPWS) Normal 03-28-2019 [facility] J[facility] ([id number]) 1965 [facility] Date Time Provider Department ([id number]) 03/28/19 HUGO NAVA FAMPWS During your visit today, we recorded the following informati on about you: Katlyn Mills LPN 03/28/2019 11:56 AM Signed [facility] faxed a request for the following [...] Telephone (ENDOSO) Normal 03-28-2019 [place] JAZLYN Jones ([id number]) 1965 [place] Javier Dixon Date Time Provider Department (16400) 03/28/19 HA ORTIZ During your visit today, we recorded the following informati on about you: Ha Ortiz MD 03/28/2019 3:03 PM Signed 24 hr urine order is in MD Jackelyn Dinero Pss 03/28/2019 4:47 PM Signed Denise from [facility] lab is calling and the urine is contaminated and patient needs to come back in to give a new urine. She can b e reached at [phone]. Thank You Mayela Lemon Ma 03/30/2019 7:49 [...] Order(s):FREE ALVERTO, UR LCMSMS [SQUFRCRT] Order #: [id number] FUTURE FREE ALVERTO, UR LCMSMS [SQUFRCRT] Order #: [id number] FUTURE CREATININE 24 HR UR [SQUCRD] Order #: [id number] FUTURE Prescriptions as of 03/28/2019 Sig: SYNTHROID [...] * *Final Report* * * Normal 03-27-2019 [facility] TRANSVAG DATE OF EXAM: Mar 27 2019 7:45AM [place] ([id number]) U 1060 - US FEMALE PELVIS TRANSVAG [...] as discussed 2. Small RIGHT ovarian cyst Shredding Specialist: [facility] Transcribe Date/Time: Mar 27 2019 8:07A Dictated by : ELLY BROWN DO This examination was interpreted and the report reviewed and electronically signed by: ELLY BROWN DO on Mar 27 2019 8:11AM EST [id number] progress on 2019-03 PROGRESS HNO ID: [id number] Normal 03-27-2019 [facility] Author: Mireya Dixon ([id number]) Service: ? Author Type: Service Center Specialist Type: Progress Notes Filed: 03/27/2019 7:46 AM [...] vitamin b12 on 2018 Cobalamin (Vitamin B12) [phone] pg/mL Normal 2018 [facility] [Mass/Vol] [place] ([id number]) Comment: Performed By: #### TSH #### [facility] [address] [place] [phone] urine culture on 14-03-27 Bacteria identified Sp. Request/Comment: - Specimen received in pre servative Normal 03-22-2019 [facility] Cx Nom (U) [place] ([id number]) Culture Result - No growth (<1,000 CFU/ml) Comment: Performed By: #### TFTEST ## ## [facility] [address] [place] [address] urinalysis with microscopic on 2019-03-22 Bilirubin, Urine Negative Negative Normal 03-22-2019 [facility] (66473) Comment: Performed By: #### DHEAS, TD, PROG, E2 #### [facility] [address] [place] [phone] #### EST #### [facility] [address] [place] [address] [phone] Clarity (U) Clear Clear Normal 03-22-2019 [facility] (06545) Comment: Performed By: #### DHEAS, TD, PROG, E2 #### [facility] [address] [place] [phone] #### EST #### [facility] [address] [place] [address] [phone] Color (U) Yellow Yellow Normal 03-22-2019 [facility] (68278) Comment: Performed By: #### DHEAS, TD, PROG, E2 #### [facility] [address] [place] [phone] #### EST #### [facility] [address] [place] [address] [phone] Comments SEE COMMENT Normal 03-22-2019 [facility] (54886) Comment: Result Comment: N/A Performed By: #### DHEAS, TD, PROG, E2 #### [facility] [address] [place] [phone] #### EST #### [facility] [address] [place] [address] [phone] Epithelial cells LM.HPF SEE COMMENT Normal 02-25 [facility] (Urine sed) [#/Area] [place] (14199) Comment: Result Comment: Few Squamous Epithelial Cells Performed By: #### DHEAS, TD, PROG, E2 #### [facility] [address] [place] [phone] #### EST #### [facility] [address] [place] [address] [phone] Glucose Ql (U) Negative Negative Normal 03-22-2019 [facility] (89742) Comment: Performed By: #### DHEAS, TD, PROG, E2 #### [facility] [place] [phone] #### EST #### [facility] [address] [place] [address] [phone] Hemoglobin/Blood,Ur 2+ Negative Critically abnormal 03-22-2019 [facility] (14849) Comment: Performed By: #### DHEAS, TD, PROG, E2 #### [facility] [address] [place] [phone] #### EST #### [facility] [address] [place] [address] [phone] Ketones Ql (U) Negative Negative Normal 03-22-2019 [facility] (97654) Comment: Performed By: #### DHEAS, TD, PROG, E2 #### [facility] [address] [place] [phone] #### EST #### [facility] [address] [place] [address] [phone] Leukest Negative Negative Normal 03-22-2019 [facility] (13787) Comment: Performed By: #### DHEAS, TD, PROG, E2 #### [facility] [address] [place] [phone] #### EST #### [facility] [address] [place] [address] [phone] Nitrite Ql (U) Negative Negative Normal 03-22-2019 [facility] (99847) Comment: Performed By: #### DHEAS, TD, PROG, E2 #### [facility] [place] [phone] #### EST #### [facility] [address] [place] [address] [phone] pH (Bld) 7.0 4.5-8.0 Normal 03-22-2019 [facility] (96210) Comment: Performed By: #### DHEAS, TD, PROG, E2 #### [place] [phone] #### EST #### [facility] [address] [place] [address] [phone] Protein (U) [Mass/Vol] Negative Negative mg/dL Normal [address] [place] [address] ([address]) Comment: Performed By: #### DHEAS, TD, PROG, E2 #### [place] [address] [place] [phone] #### EST #### [facility] [address] [place] [address] [phone] RBC (U) [#/Vol] 0-3 0-3 Normal 03-22-2019 [facility] (22368) Comment: Performed By: #### DHEAS, TD, PROG, E2 #### [place] [address] [place] [phone] #### EST #### [facility] [address] [place] [address] [phone] Specific [place], Ur 1.010 1.005-1.030 Normal 019 [facility] (64611) Comment: Performed By: #### DHEAS, TD, PROG, E2 #### [facility] [address] [place] [phone] #### EST #### [facility] [address] [place] [address] [phone] Urine Vladimir Comment SEE COMMENT Normal 03-22-2019 [facility] (45542) Comment: Result Comment: Result reche cked. Performed By: #### DHEAS, TD, PROG, E2 #### [facility] [address] [phone] #### EST #### [facility] [address] [place] [address] [phone] Urobilinogen Qn (U) Normal Normal Normal 03-22-2019 [facility] (44366) Comment: Performed By: #### DHEAS, TD, PROG, E2 #### [facility] [address] [place] [phone] #### EST #### [facility] [address] [place] [address] [phone] WBC (Bld) [#/Vol] 0-5 0-5 Normal 03-22-2019 C [facility] (40353) Comment: Performed By: #### DHEAS, TD, PROG, E2 #### [facility] [address] [place] [phone] #### EST #### [facility] [address] [place] [address] [phone] progress on 2019-02 PROGRESS HNO ID: [id number] Normal 03-22-2019 [facility] Author: Hugo Dixon ([id number]) Service: ? Author Type: Physician Type: Progress [...] extensive testing by several c cristiandiologists in [facility] and at [facility], multiple endocrinologists, endo surgery, several gastroenterologists, [...] Lymph 1.00 - 4.00 k/uL 4.03 (H) [place]% % 9.0 Abs [place] <0.87 k/uL 1.03 (H) Eosin% % 2.5 [...] stroke - Colon Cancer Father age 64 SD - Diabetes Father Type 2 - Hypertension Father - Coronary Artery Disease Father Hx of SD - Thyroid Sister hx of parathyroid disease/ [...] JAK2 V617F Interp (NOTE) Normal 03-22-2019 C [facility] (47185) Comment: Result Comment: Performing P athologist: Dr. [...] end DNA sequencing was performed on the [employer] in [facility] ([place], [place]). A customized bioinformatic pipeline was u [...] 1% allele proportion for the JA K2 [id number] single nucleotide variant and approximately 5% allele [...] developed and its performance characteristics determined by [facility]'s Isael Kwabena [facility] ([facility]). It has not been cleared or approved by the FDA. RT-PL[facility] is regulated under CLIA as qualified to [...] By: #### DHEAS, TD, PROG, E2 #### [facility] [address] [place], [place] [address] #### EST #### [address] [address] [phone] folate, serum on 14-03-27 Folate [Mass/Vol] 12.3 >4.7 ng/mL Normal 03-22-2019 C [facility] (88506) Comment: Performed By: #### TSH #### [facility] [address] [place], [place] [address] epo on 2019-03-22 EPO 6.3 2.6-18.5 mIU/mL Normal 03-22-2019 [facility] (91974) Comment: Result Comment: Test analyze d by the Yanna DxI method. Performed By: #### TSH #### [facility] [address] [place], [place] [address] cnov on 2019-03-22 CNOV Office Visit (FAMPWS) Normal 03-22-20 19 [place] [facility] JAZLYN GARZON ([id number]) 1965 [facility] Date Time Provider Department ([id number]) 03/22/19 10:00 AM HUGO NAVA [facility] During your visit today, we recorded [...] had extensive testing by several cardiologists in [facility] and at [facility], multiple endocrinologists, endo surgery, se rodriguez [...] have egd and colonoscopy scheduled in the [facility]. They wanted to have her to [...] Lymph 1.00 - 4.00 k/uL 4.03 (H) [place]% % 9.0 Abs [place] <0.87 k/uL 1.03 (H) Eosin% % 2.5 [...] stroke - Colon Cancer Father age 64 SD - Diabetes Father Type 2 - Hypertension Father - Coronary Artery Disease Father Hx of SD - Thyroid Sister hx of parathyroid disease/ [...] breast examination [Z12.39] Order(s):US FEMALE PELVIS TRANSVAG [[id number]] Order #: [id number] FUTURE metroNIDAZOLE (METROGEL VAGINAL) 0.75 % Vaginal GelUse 1 Applicatorful vaginally daily at bedtime.Disp: 70 gRfl: 0 ROSALIE SCREENING [[id number]] Order #: [id number] FUTURE UA DIP, URINE (POC) [] Order #: [id number]. #:[id number] URINE CULTURE [SQURCUL] Order #: [id number] URINALYSIS WITH MICROSCOPIC [SQUAWMIC] Order #: [id number] UA DIP, URINE (POC) [] Order #: [id number] Prescriptions as of 03/22/2019 Sig: LANCETS 28 [...] 2019-03-22 Carboxyhemoglobin,Joel 7.1 <2.0 % High 03-22-20 [facility] (91806) Comment: Performed By: #### TSH #### [facility] [address] [place] [id number] n-methylhistamine,ur on 2019-03-21 Collection duration (U) 24 Normal 2018 [facility] (27644) Comment: Performed By: #### TFTEST ## ## [facility] [employer] [address] [place] [address] Creatinine [Mass/Vol] 64 mg/dL Normal 03-21-20 [facility] (85124) Comment: Performed By: #### TFTEST ## ## [facility] [address] [place] [address] N-Methylhistamine,Ur 72 30-200 mcg/g Cr Normal 9 [facility] (21956) Comment: Performed By: #### TFTEST ## ## [facility] [employer] [address] [place] [address] Urine Volume 2500 Normal 03-21-2019 [facility] (06781) Comment: Performed By: #### TFTEST ## ## [facility] [employer] [address] [place] [address] tsh on 2019-03-20 TSH Qn 3.110 0.270-4.200 uU/mL Normal 03-20-2019 [facility] (68090) Comment: Performed By: #### DHEAS, TD, PROG, E2 #### [facility] [address] [place] [phone] #### EST #### [facility] [address] [place] [address] [phone] tryptase on 2019-02 Tryptase 7.2 <8.4 ug/L Normal 03-20-2019 [facility] (71699) Comment: Performed By: #### DHEAS, TD, PROG, E2 #### [facility] [address] [place] [phone] #### EST #### [facility] [address] [place] [address] [phone] progress on 2019-02 PROGRESS HNO ID: [id number] Normal 03-20-2019 [facility] Author: Hugo Nava Dixon ([id number]) Service: ? Author Type: Physician Type: Progress [...] physician. She would need to see an headliner installer/technical services assistant to further evaluate these issu es and perhaps a food porter. She has polycythemia likely related to her smoking and intermittent elevated white counts. She had been set up previously to see immunology and [facility] She did not keep [...] stroke - Colon Cancer Father age 64 SD - Diabetes Father Type 2 - Hypertension Father - Coronary Artery Disease Father Hx of SD - Thyroid Sister hx of parathyroid disease/ [...] Albumin [Mass/Vol] 4.4 3.9-4.9 g/dL Normal 03-20-2019 [facility] (06607) Comment: Performed By: #### DHEAS, TD, PROG, E2 #### [facility] [address] [place] [phone] #### EST #### [facility] [address] [place] [address] [phone] ALP [Catalytic activity/Vol] 72 34-123 U/L Normal 1 05-20-2018 [facility] (64925) Comment: Performed By: #### DHEAS, TD, PROG, E2 #### [facility] [address] [place] [phone] #### EST #### [facility] [address] [place] [address] [phone] ALT [Catalytic activity/Vol] 32 7-38 U/L Normal 1 05-20-2018 [facility] (47289) Comment: Performed By: #### DHEAS, TD, PROG, E2 #### [facility] [place] [phone] #### EST #### [facility] [address] [place] [address] [phone] AST [Catalytic activity/Vol] 23 13-35 U/L Normal 1 05-20-2018 [facility] (96255) Comment: Performed By: #### DHEAS, TD, PROG, E2 #### [facility] [address] [place] [phone] #### EST #### [facility] [address] [place], [place] [address] [phone] Bilirubin [Mass/Vol] 0.3 0.2-1.3 mg/dL Normal 9 [facility] (72505) Comment: Performed By: #### DHEAS, TD, PROG, E2 #### [facility] [address] [place] [phone] #### EST #### [facility] [address] [place] [address] [phone] Bilirubin,Conjugated <0.2 <0.2 Normal 9 [facility] (44334) Comment: Performed By: #### DHEAS, TD, PROG, E2 #### [facility] [place] [phone] #### EST #### [facility] [address] [place] [address] [phone] Protein [Mass/Vol] 7.6 6.3-8.0 g/dL Normal 03-20-2019 [facility] (68910) Comment: Performed By: #### DHEAS, TD, PROG, E2 #### [facility] [address] [place] [address] #### EST #### [facility] [address] [place] [address] [phone] cnov on 2019-03-20 CNOV Office Visit (FAMPWS) Normal 03-20- 19 [place] [facility] JAZLYN GARZON ([id number]) 1965 [place] Date Time Provider Department (46856) 03/20/19 8:00 AM HUGO NAVA During your visit today, we recorded the following informati on about you: Pulse Respiration Blood pressure 88/minute 16/minute 124/82 Sudha Pink INTELLIGENCE AGENT 03/20/2019 8:34 AM Signed Thought was going to have twice a week hormone p atch at pharmacy and when got there was the once per week patch. 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 Dizziness. [...] physician. She would need to see an headliner installer/technical services assistant to further evaluate these issues and perhaps a food porter. She has polycythemia likely related to her [...] stroke - Colon Cancer Father age 64 SD - Diabetes Father Type 2 - Hypertension Father - Coronary Artery Disease Father Hx of SD - Thyroid Sister hx of parathyroid disease/ [...] [I95.1] Order(s):CONSULT TO ALLERGY/IMMUNOLOGY [9009] Order #: [id number]: 1 CBC + DIFF [SQCBCDIF] Order #: [id number] FUTURE HEPATIC FUNCTION PNL [SQHFP] Order #: [id number] FUTURE TRYPTASE BLOOD [SQTRYPT] Order #: [id number] FUTURE N-METHYLHISTAMINE,UR [SQMHISTA] Order #: [id number] Prescriptions as of 03/20/2019 Sig: SYNTHROID 125 [...] 08/25/2018 More... Visit Notes: >> Sudha Pink INTELLIGENCE AGENT Mon Mar 20, 2019 8:31 AM Status: Signed Thought was going to have twice a week hormone patch at [facility] and when got there was the once per week patch. Over the weekend with cramping in lower body. Dizziness. Encounter Status:Closed by HUGO NAVA MD on 03/20/19 cbc and differential on 2019-03-20 Abs Baso 0.08 <0.11 k/uL Normal 03-20-2019 [facility] (31077) Comment: Performed By: #### DHEAS, TD, PROG, E2 #### [facility] [address] [place], [place] [address] #### EST #### [facility] [address] [place] [address] [phone] Abs [place] 1.03 <0.87 k/uL High 03-20-2019 [facility] (32921) Comment: Performed By: #### DHEAS, TD, PROG, E2 #### [facility] [address] [place] [phone] #### EST #### [facility] [address] [place] [address] [phone] Abs Neut 5.98 1.45-7.50 k/uL Normal 03-20-2019 [facility] (95022) Comment: Performed By: #### DHEAS, TD, PROG, E2 #### [place] [address] [place] [phone] #### EST #### [facility] [address] [place] [address] [phone] Absolute nRBC <0.01 <0.01 Normal 03-20-2019 [facility] (31441) Comment: Performed By: #### DHEAS, TD, PROG, E2 #### [place] [phone] #### EST #### [facility] [address] [place] [address] [phone] Basophils/100 WBC (Bld) 0.7 % Normal 2018 [facility] (80512) Comment: Performed By: #### DHEAS, TD, PROG, E2 #### [place] [address] [place] [phone] #### EST #### [facility] [address] [place] [address] [phone] DTYPE Auto Diff Normal 03-20-2019 [facility] (53931) Comment: Performed By: #### DHEAS, TD, PROG, E2 #### [place] [phone] #### EST #### [facility] [address] [place] [address] [phone] Eosinophils (Bld) [#/Vol] 0.28 <0.46 k/uL Normal 02-25 [facility] (77157) Comment: Performed By: #### DHEAS, TD, PROG, E2 #### [facility] [address] [place] [phone] #### EST #### [facility] [address] [place] [address] [phone] Eosinophils/100 WBC (Bld) 2.5 % Normal 02-25 [facility] (72750) Comment: Performed By: #### DHEAS, TD, PROG, E2 #### [facility] [address] [phone] #### EST #### [facility] [address] [place] [address] [phone] Erythrocyte distribution 12.3 11.5-15.0 % Normal 03-20 [facility] width (RBC) [Ratio] [place] (21242) Comment: Performed By: #### DHEAS, TD, PROG, E2 #### [facility] [place] [phone] #### EST #### [facility] [address] [place] [address] [phone] Hematocrit (Bld) [Volume 48.8 36.0-46.0 % High 03-20 [facility]] [place] (42053) Comment: Performed By: #### DHEAS, TD, PROG, E2 #### [facility] [address] [place] [phone] #### EST #### [facility] [address] [place] [address] [phone] Hemoglobin (Bld) 15.9 11.5-15.5 g/dL High 03-20-2019 [facility] [Mass/Vol] [place] (95824) Comment: Performed By: #### DHEAS, TD, PROG, E2 #### [facility] [place] [phone] #### EST #### [facility] [address] [place] [address] [phone] Lymphocytes (Bld) [#/Vol] 4.03 1.00-4.00 k/uL High 02-25 [facility] (24256) Comment: Performed By: #### DHEAS, TD, PROG, E2 #### [place] [phone] #### EST #### [facility] [address] [place] [address] [phone] Lymphocytes/100 WBC (Bld) 35.4 % Normal 02-25 [facility] (74188) Comment: Performed By: #### DHEAS, TD, PROG, E2 #### [place] [phone] #### EST #### [facility] [address] [place] [address] [phone] MCH (RBC) [Entitic mass] 32.8 26.0-34.0 pG Normal 03-20 [facility] (01956) Comment: Performed By: #### DHEAS, TD, PROG, E2 #### [place] [phone] #### EST #### [facility] [address] [place] [address] [phone] MCHC (RBC) [Mass/Vol] 32.6 30.5-36.0 g/dL Normal 03-20-20 [facility] (87879) Comment: Performed By: #### DHEAS, TD, PROG, E2 #### [place] [phone] #### EST #### [facility] [address] [place] [phone] [phone] MCV (RBC) [Entitic vol] 100.6 80.0-100.0 fL High 03-20 [facility] (64799) Comment: Performed By: #### DHEAS, TD, PROG, E2 #### [facility] [address] [place] [phone] #### EST #### [facility] [address] [place] [address] [phone] Monocytes/100 WBC (Bld) 9.0 % Normal 2018 [facility] (55308) Comment: Performed By: #### DHEAS, TD, PROG, E2 #### [facility] [address] [place] [phone] #### EST #### [facility] [address] [place] [address] [phone] Neutrophils/100 WBC (Bld) 52.4 % Normal 02-25 [facility] (75683) Comment: Performed By: #### DHEAS, TD, PROG, E2 #### [facility] [address] [phone] #### EST #### [facility] [address] [place] [address] [phone] NRBCs 0.0 0 /100 WBC Normal 03-20-2019 [facility] (18673) Comment: Performed By: #### DHEAS, TD, PROG, E2 #### [facility] [address] [phone] #### EST #### [facility] [address] [place] [address] [phone] Platelet mean volume 10.7 9.0-12.7 fL Normal 9 [facility] (d) [Entitic vol] [place] (35639) Comment: Performed By: #### DHEAS, TD, PROG, E2 #### [facility] [place] [phone] #### EST #### [facility] [address] [place] [address] [phone] Platelets (Bld) [#/Vol] 293 150-400 k/uL Normal 2018 [facility] (73992) Comment: Performed By: #### DHEAS, TD, PROG, E2 #### [facility] [address] [phone] #### EST #### [facility] [address] [place] [address] [phone] RBC (Bld) [#/Vol] 4.85 3.90-5.20 m/uL Normal 03-20-2019 [facility] (05944) Comment: Performed By: #### DHEAS, TD, PROG, E2 #### [facility] [address] [place] [phone] #### EST #### [facility] [address] [place] [address] [phone] WBC (Bld) [#/Vol] 11.40 3.70-11.00 k/uL High 03-20-2019 [facility] (48728) Comment: Performed By: #### DHEAS, TD, PROG, E2 #### [facility] [address] [place] [phone] #### EST #### [facility] [address] [place] [address] [phone] progress on 2019-02 PROGRESS HNO ID: [id number] Normal 03-17-2019 [facility] Author: Hugo Dixon ([id number]) Service: ? Author Type: Physician Type: Progress [...] stroke - Colon Cancer Father age 64 SD - Diabetes Father Type 2 - Hypertension Father - Coronary Artery Disease Father Hx of SD - Thyroid Sister hx of parathyroid disease/ [...] CNOV Office Visit (FAMPWS) Normal 03-17-20 19 [place] JAZLYN Jones ([id number]) 1965 F [place] Date Time Provider Department (33181) 03/17/19 11:20 AM HUGO NAVA During your [...] stroke - Colon Cancer Father age 64 SD - Diabetes Father Type 2 - Hypertension Father - Coronary Artery Disease Father Hx of SD - Thyroid Sister hx of parathyroid disease/ [...] 03/17/19 progress on 2019-02 PROGRESS HNO ID: [id number] Normal 03-08-2019 [facility] Author: Hugo Dixon ([id number]) Service: ? Author Type: Physician Type: Progress [...] stroke - Colon Cancer Father age 64 SD - Diabetes Father Type 2 - Hypertension Father - Coronary Artery Disease Father Hx of SD - Thyroid Sister hx of parathyroid disease/ [...] 2019-03-08 CNOV Office Visit (FAMPWS) Normal 03-08-[address] [place] [address] JAZLYN Jones ([id number]) 1965 [facility] Date Time Provider Department (65977) 03/08/19 11:20 AM HUGO NAVAWS During your [...] stroke - Colon Cancer Father age 64 SD - Diabetes Father Type 2 - Hypertension Father - Coronary Artery Disease Father Hx of SD - Thyroid Sister hx of parathyroid disease/ [...] Qn 1.920 0.400-5.500 uU/mL Normal 02-16-2019 [facility] (05029) Comment: Performed By: #### TSH #### [facility] [address] [place], [place] [address] urea nitrogen on 12-12-13 Urea nitrogen [Mass/Vol] 15 6 - 23 mg/dL Normal 12-07 [facility] (00 000) Comment: Performed By: #### ALT #### [facility] [address] [place] [address] sedimentation rate, erythrocyte on 2018-12-07 SEDIMENTATION RATE, 22 0 - 30 mm/h Normal 12-07-2018 [facility] ( 28777) Comment: Performed By: #### ESRWS ### # [facility] [address] [place] [address] follow up (rheumatology) on 2018-12-07 Follow Up [...] for 4 years. Tried to apply for [employer]) Review of Systems Constitutional: feeling tired. Cardiovascular: [...] (V19.4) (Z82. 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 Does not exercise (V69.0) (Z72.3) Lack of adequate sleep (V69.4) (Z72.820) Lives in [place] No alcohol use No caffeine use No [...] on Vitals Vital Signs Recorded: 07Dec2018 07:55AM Qbpqlnuhwte56.9 F Heart Rate78 Jvhypwwe128 Wqiobuxzb37 Hwbiuk739 lb BMI Vmbchvlokc82.83 BSA Calculated1.9 O2 Rlntfqtoyx67 Physical Exam Constitutional General appearance: Alert and [...] exposure to cigarette smoke.; Status:Complete; D one: [id number] 08:07AM Ordered; For:BMI 33.0-33.9,adult; Ordered By:Che Benites; Ophthalmology Follow-Up Outpatient Follow-up Status: Hold Fo r - Scheduling Requested for: [id number] Ordered Stat;For: PMH: Long- term use of [...] se, Serum; Specimen Source:Blood (BLD); Status:Active; Requested for:[id number]; Perform:Lab Services - Lab T o Draw (Blood Test); Due:07Jul2019;Ordered; For:Systemic lupus erythematosus with other organ involvement; Ordered By:Latasha Benites; Anti-dsDNA (Double Stranded) Antibodies; Specimen Source:Blo od (BLD); Status:Active; Requested for:[id number]; Perform:Lab Services - Lab T o Draw (Blood Test); Due:07Jul2019;Ordered; For:Systemic lupus erythematosus with other organ involvement; Ordered By:Latasha Benites; AST; Specimen Source:Blood (BLD); Status:Active; Requested f or:[id number]; Perform:Lab Services - Lab T o Draw (Blood Test); Due:07Jul2019;Ordered; For:Systemic lupus erythematosus with other organ involvement; Ordered By:Latasha Benites; Blood Urea Nitrogen, Serum; Specimen Source:Blood (BLD); Status:Active; Requested for:[id number]; Perform:Lab Services - Lab T o Draw (Blood Test); Due:07Jul2019;Ordered; For:Systemic lupus erythematosus with other organ involvement; Ordered By:Latasha Benites; C Reactive Protein, Serum; S pecimen Source:Blood (BLD); Status:Active; Requested for:[id number]; Perform:Lab Services - Lab T o Draw (Blood Test); Due:07Jul2019;Ordered; For:Systemic lupus erythematosus with other organ involvement; Ordered By:Latasha Benites; C3 Complement, Serum; Specimen Source:Blood (BLD); Status: Active; Requested for:[id number]; Perform:Lab Services - Lab T o Draw (Blood Test); Due:07Jul2019;Ordered; For:Systemic lupus erythematosus with other organ involvement; Ordered By:Latasha Benites; C4 Complement, Serum; Specimen Source:Blood (BLD); Status: Active; Requested for:[id number]; Perform:Lab Services - Lab T o Draw (Blood Test); Due:07Jul2019;Ordered; For:Systemic lupus erythematosus with other organ involvement; Ordered By:Latasha Benites; Complete Blood Count + Diffe rential; Specimen Source:Blood (BLD); Status:Active; Requested for:[id number]; Perform:Lab Services - Lab T o Draw (Blood Test); Due:07Jul2019;Ordered; For:Systemic lupus erythematosus with other organ involvement; Ordered By:Latasha Benites; Creatinine, Serum; Specimen Source:Blood (BLD); Status:Activ e; Requested for:[id number]; Perform:Lab Services - Lab T o Draw (Blood Test); Due:07Jul2019;Ordered; For:Systemic lupus erythematosus with other organ involvement; Ordered By:Latasha Benites; Sedimentation Rate, Erythrocyte; Specimen Source:Blood (BLD); Status:Active; Requested for:[id number]; Perform:Lab Services - Lab T o Draw [...] Creatinine [Mass/Vol] >60 >60 Normal 12-08-19 19 [facility] (59690) Comment: Performed By: #### ALT #### [facility] [address] [place] [address] Result Comment: CALCULATIONS OF ESTIMATED GFR ARE PERFORMED USING THE MDRD STUDY EQUATIO N FOR THE IDMS-TRACEABLE CREATININE ME THODS. CLIN CHEM 2007;53:766-72 Creatinine [Mass/Vol] 0.84 0.50 - 1.05 mg/dL Normal 2018 [facility] (00 000) Comment: Performed By: #### ALT #### [facility] [address] [place] [address] cbc and differential on 2018-12-07 % AUTOMATED IMMATURE GRAN 0.4 0.0 - 0.9 % Normal 11-24 [facility] (00 000) Comment: Result Comment: Percent diff erential counts (%) should be interpreted in the context of the absolute cell counts (cells/L). Performed By: #### ESRWS ### # [facility] [address] [place] [address] Basophils (Bld) 0.06 0.00 - 0.10 x10E9/L Normal 12-07-2018 [facility] [#/Vol] Center (00 000) Comment: Performed By: #### ESRWS ### # [facility] [address] [place] [address] Basophils/100 WBC (Bld) 0.5 0.0 - 2.0 % Normal 2018 [facility] (55369) Comment: Performed By: #### ESRWS ### # [facility] [address] [place] [address] Eosinophils (Bld) 0.24 0.00 - 0.70 x10E9/L Normal 12-07-2018 [facility] [#/Vol] Center (00 000) Comment: Performed By: #### ESRWS ### # [facility] [address] [place] [address] Eosinophils/100 WBC (Bld) 1.9 0.0 - 6.0 % Normal 11-24 [facility] (00 000) Comment: Performed By: #### ESRWS ### # [facility] [address] [place] [address] Erythrocyte distribution 12.3 11.5 - 14.5 % Normal [facility] width (RBC) [Ratio] Center (99182) Comment: Performed By: #### ESRWS ### # [facility] [address] [place] [address] Hematocrit (Bld) [Volume 51.2 36.0 - 46.0 % High [facility]] Center (00 000) Comment: Performed By: #### ESRWS ### # [facility] [address] [place] [address] Hemoglobin (Bld) 16.4 12.0 - 16.0 g/dL High 12-07-2018 [facility] [Mass/Vol] [place] (0 0000) Comment: Performed By: #### ESRWS ### # [facility] [address] [place] [address] Lymphocytes (Bld) 4.92 1.20 - 4.80 x10E9/L High 12-07-2018 [facility] [#/Vol] [place] (00 000) Comment: Performed By: #### ESRWS ### # [facility] [address] [place] [address] Lymphocytes/100 WBC (Bld) 39.5 13.0 - 44.0 % Normal [facility] (00 000) Comment: Performed By: #### ESRWS ### # [facility] [address] [place] [address] MCHC (RBC) [Mass/Vol] 32.0 32.0 - 36.0 g/dL Normal 2018 [facility] (00 000) Comment: Performed By: #### ESRWS ### # [facility] [address] [place] [address] MCV (RBC) [Entitic vol] 100 80 - 100 fL Normal 2018 [facility] (48468) Comment: Performed By: #### ESRWS ### # [facility] [address] [place] [address] Monocytes (Bld) 1.09 0.10 - 1.00 x10E9/L High 12-07-2018 [facility] [#/Vol] [place] (00 000) Comment: Performed By: #### ESRWS ### # [facility] [address] [place] [address] Monocytes/100 WBC (Bld) 8.8 2.0 - 10.0 % Normal 12-07 [facility] (00 000) Comment: Performed By: #### ESRWS ### # [facility] [address] [place] [address] Neutrophils (Bld) 6.08 1.20 - 7.70 x10E9/L Normal 12-07-2018 [facility] [#/Vol] Center (00 000) Comment: Performed By: #### ESRWS ### # [facility] [address] [place] [address] Neutrophils/100 WBC (Bld) 48.9 40.0 - 80.0 % Normal [facility] (00 000) Comment: Performed By: #### ESRWS ### # [facility] [address] [place] [address] Nucleated RBC/100 WBC 0.0 0.0-0.0 /100 WBC Normal 12-08-19 [facility] (Bld) [Ratio] Center (96438) Comment: Performed By: #### ESRWS ### # [facility] [address] [place] [address] Platelets (Bld) [#/Vol] 287 150 - 450 x10E9/L Normal 2018 [facility] (00 000) Comment: Performed By: #### ESRWS ### # [facility] [address] [place] [address] RBC (Bld) [#/Vol] 5.13 4.00 - 5.20 x10E12/L Normal 12-07-2018 [facility] (00 000) Comment: Performed By: #### ESRWS ### # [facility] [address] [place] [address] WBC (Bld) [#/Vol] 12.4 4.4 - 11.3 x10E9/L High 12-07-2018 [facility] (17349) Comment: Performed By: #### ESRWS ### # [facility] [address] [place] [address] c4 complement on 12-12-13 C4 COMPLEMENT 28 10 - 50 mg/dL Normal 12-07-2018 [facility] (10680) Comment: Performed By: #### ESRWS ### # [facility] [address] [place] [address] c3 complement on 12-12-13 C3 COMPLEMENT 147 87 - 200 mg/dL Normal 12-07-2018 [facility] (68393) Comment: Performed By: #### ESRWS ### # [facility] [address] [place] [address] c-reactive protein on 2018-12-07 CRP [Mass/Vol] 0.14 mg/dL Normal 12-07-2018 [facility] (95531) Comment: Result Comment: REF VALUE < 1.00 Performed By: #### ESRWS ### # [facility] [address] [place] [address] ast on 2018-12-07 AST [Catalytic activity/Vol] 18 9 - 39 U/L Normal 0 12-07-2018 [facility] (00 000) Comment: Performed By: #### ESRWS ### # [facility] [address] [place] [address] anti-dna [ds] on 12-12-13 ANTI-DNA [DS] 1.0 IU/mL Normal 12-07-2018 [facility] (82365) Comment: Result Comment: REF VALUES NEGATIVE: <= 4 IU/ML EQUIVOCAL: 5- 9 IU/ML POSITIVE: >=10 IU/ML Performed By: #### ALT #### [facility] [address] [place] [address] alt on 2018-12-07 ALT [Catalytic activity/Vol] 28 7 - 45 U/L Normal 0 12-07-2018 [facility] (00 000) Comment: Result Comment: Patients alex ated with Sulfasalazine may generate falsely decreased results fo r ALT. Performed By: #### ESRWS ### # [facility] [address] [place] [address] cnpn on 2018-12-06 CNPN Telephone (CDLE) Normal 12-06-2018 [place] JAZLYN Moreira ([id number]) 1965 F ([id number]) Date Time Provider Department 12/06/18 GRAY PENA) CDLBME During your visit today, we recorded the following informati on about you: Gray Pena RN, RN 12/06/2018 1:32 PM Signed Patient phoned for reminder states daughter in labor a nd will not be able to make. [employer] made aware of cancellation Allergies As of [...] Fully Assessed Reason for Visit: Reminder Call [7596] Prescriptions as of 12/06/2018 Sig: ESCITALOPRAM 5 [...] TEST NAME : JAZLYN GARZON Normal 11-09-2018 [facility] EXERCISE PID : [id number] ([id number]) : 1965 Gender : Female Race : ORD : [id number] Procedure Date : Nov 09 2018 13:54:47 [...] Achieved Test Reason : Dizzy Spells Location :[facility] Overread By : ROSSY ARZOLA D.O. Edited By : Jolie Razo Referred By : WAYLON GUTIERREZ Acquired by : FRANK BOYCE cnpn on 2018-11-08 CNPN Telephone (CDLBME) Normal 11-08-2018 [facility] JAZLYN GARZON ([id number]) 1965 F ([id number]) Date Time Provider Department 11/08/18 ATIYA SERRATO [...] Fully Assessed Reason for Visit: Reminder Call [6756] Prescriptions as of 11/08/2018 Sig: BLOOD SUGAR [...] ATIYA SERRATO on 11/08/18 dhirajn on 2018[facility]11-02 [facility]) Normal 11-02-2018 [place] JAZLYN Moreira ([id number]) 1965 F ([id number]) Date Time Provider Department 11/02/18 ATIYA SERRATO [...] Fully Assessed Reason for Visit: Reminder Call [7996] Prescriptions as of 11/02/2018 Sig: BLOOD SUGAR [...] 2018 ALDOSTERONE 3.5 0.0-30.0 ng/dL Normal 08-10-2018 [facility] (20952) Comment: Result Comment: This test wa s developed and its performance characteristics determined by [facility]. It deleon s not been cleared or approved by the Food and Drug Adminis tration. Performed By: #### ESRWS ### # [facility] [address] [place] [address] acth on 2018-08-05 ACTH 9 0 - 46 pg/mL Normal 08-05-2018 [facility] (07609) Comment: Performed By: #### ESRWS ### # [facility] [address] [place] [address] urea nitrogen on 12-08-10 Urea nitrogen [Mass/Vol] 10 6 - 23 mg/dL Normal 08-04 [facility] (00 000) Comment: Performed By: #### UREA #### [facility] [address] [place] [address] sedimentation rate, erythrocyte on 2018-08-04 SEDIMENTATION RATE, 23 0 - 30 mm/h Normal 08-04-2018 [facility] ( 21520) Comment: Performed By: #### ESRWS ### # [facility] [address] [place] [address] creatinine on 08-04 Creatinine [Mass/Vol] >60 >60 Normal 08-05-19 [facility] (89300) Comment: Performed By: #### CREAT ### # [facility] [address] [place] [address] Result Comment: CALCULATIONS OF ESTIMATED GFR ARE PERFORMED USING THE MDRD STUDY EQUATIO N FOR THE IDMS-TRACEABLE CREATININE ME THODS. CLIN CHEM 2007;53:766-72 Creatinine [Mass/Vol] 0.75 0.50 - 1.05 mg/dL Normal 2018 [facility] (00 000) Comment: Performed By: #### CREAT ### # [facility] [address] [place] [address] cortisol,unspecified on 2018-08-04 CORTISOL,UNSPECIFIED 17.1 2.5 - 20.0 ug/dL Normal 08-05-19 19 [facility] (00 000) Comment: Performed By: #### CORUN ### # [facility] [address] [place] [address] cbc and differential on 2018-08-04 % AUTOMATED IMMATURE GRAN 0.6 0.0 - 0.9 % Normal 07-25 [facility] (00 000) Comment: Result Comment: Percent diff erential counts (%) should be interpreted in the context of the absolute cell counts (cells/L). Performed By: #### CBCDF ### # [facility] [address] [place] [address] Basophils (Bld) 0.09 0.00 - 0.10 x10E9/L Normal 08-04-2018 [facility] [#/Vol] [place] (00 000) Comment: Performed By: #### CBCDF ### # [facility] [address] [place] [address] Basophils/100 WBC (Bld) 0.8 0.0 - 2.0 % Normal 2018 [facility] (15219) Comment: Performed By: #### CBCDF ### # [facility] [address] [place] [address] Eosinophils (Bld) 0.27 0.00 - 0.70 x10E9/L Normal 08-04-2018 [facility] [#/Vol] [place] (00 000) Comment: Performed By: #### CBCDF ### # [facility] [address] [place] [address] Eosinophils/100 WBC (Bld) 2.3 0.0 - 6.0 % Normal 07-25 [facility] (00 000) Comment: Performed By: #### CBCDF ### # [facility] [address] [place] [address] Erythrocyte distribution 12.7 11.5 - 14.5 % Normal [facility] width (RBC) [Ratio] Center (78178) Comment: Performed By: #### CBCDF ### # [facility] [address] [place] [address] Hematocrit (Bld) [Volume 48.5 36.0 - 46.0 % High [facility]] Center (00 000) Comment: Performed By: #### CBCDF ### # [facility] [address] [place] [address] Hemoglobin (Bld) 15.6 12.0 - 16.0 g/dL Normal 08-04-2018 [facility] [Mass/Vol] [place] (0 0000) Comment: Performed By: #### CBCDF ### # [facility] [address] [place] [address] Lymphocytes (Bld) 4.04 1.20 - 4.80 x10E9/L Normal 08-04-2018 [facility] [#/Vol] [place] (00 000) Comment: Performed By: #### CBCDF ### # [facility] [address] [place] [address] Lymphocytes/100 WBC (Bld) 34.9 13.0 - 44.0 % Normal [facility] (00 000) Comment: Performed By: #### CBCDF ### # [facility] [address] [place] [address] MCHC (RBC) [Mass/Vol] 32.2 32.0 - 36.0 g/dL Normal 2018 [facility] (00 000) Comment: Performed By: #### CBCDF ### # [facility] [address] [place] [address] MCV (RBC) [Entitic vol] 100 80 - 100 fL Normal 2018 [facility] (49824) Comment: Performed By: #### CBCDF ### # [facility] [address] [place] [address] Monocytes (Bld) 0.99 0.10 - 1.00 x10E9/L Normal 08-04-2018 [facility] [#/Vol] Center (00 000) Comment: Performed By: #### CBCDF ### # [facility] [address] [place] [address] Monocytes/100 WBC (Bld) 8.6 2.0 - 10.0 % Normal 08-04 [facility] (00 000) Comment: Performed By: #### CBCDF ### # [facility] [address] [place] [address] Neutrophils (Bld) 6.11 1.20 - 7.70 x10E9/L Normal 08-04-2018 [facility] [#/Vol] [facility] (00 000) Comment: Performed By: #### CBCDF ### # [facility] [address] [place] [address] Neutrophils/100 WBC (Bld) 52.8 40.0 - 80.0 % Normal [facility] (00 000) Comment: Performed By: #### CBCDF ### # [facility] [address] [place] [address] Nucleated RBC/100 WBC 0.1 0.0-0.0 /100 WBC Normal 08-05-19 19 [facility] (Bld) [Ratio] Center (89156) Comment: Performed By: #### CBCDF ### # [facility] [address] [place] [address] Platelets (Bld) [#/Vol] 301 150 - 450 x10E9/L Normal 2018 [facility] (00 000) Comment: Performed By: #### CBCDF ### # [facility] [address] [place] [address] RBC (Bld) [#/Vol] 4.85 4.00 - 5.20 x10E12/L Normal 08-04-2018 [facility] (00 000) Comment: Performed By: #### CBCDF ### # [facility] [address] [place] [address] WBC (Bld) [#/Vol] 11.6 4.4 - 11.3 x10E9/L High 08-04-2018 [facility] (65129) Comment: Performed By: #### CBCDF ### # [facility] [address] [place] [address] c4 complement on 12-08-10 C4 COMPLEMENT 26 10 - 50 mg/dL Normal 08-04-2018 [facility] (65476) Comment: Performed By: #### C4 #### [facility] [address] [place] [address] c3 complement on 12-08-10 C3 COMPLEMENT 157 87 - 200 mg/dL Normal 08-04-2018 [facility] (74037) Comment: Performed By: #### C3 #### [facility] [address] [place] [address] c-reactive protein on 2018-08-04 CRP [Mass/Vol] 0.18 mg/dL Normal 08-04-2018 [facility] (17732) Comment: Result Comment: REF VALUE < 1.00 Performed By: #### CRP #### [facility] [address] [place] [address] ast on 2018-08-04 AST [Catalytic activity/Vol] 19 9 - 39 U/L Normal 0 08-04-2018 [facility] (00 000) Comment: Performed By: #### AST #### [facility] [address] [place] [address] loretta + adarsh panel on 2018-08-04 LORETTA WITH REFLEX TO ADARSH NEGATIVE NEGATIVE Normal 019 [facility] (00 000) Comment: Performed By: #### ESRWS ### # [facility] [address] [place] [address] ANTI-CENTROMERE <0.2 Normal 08-04-2018 [facility] (04320) Comment: Result Comment: REF VALUES < 1.0 = NEGATIVE >=1.0 = POSITIVE Performed By: #### ESRWS ### # [facility] [address] [place] [address] ANTI-CHROMATIN <0.2 Normal 08-04-2018 [facility] (59048) Comment: Result Comment: REF VALUES < 1.0 = NEGATIVE >=1.0 = POSITIVE Performed By: #### ESRWS ### # [facility] [address] [place] [address] ANTI-DNA [DS] 1.0 IU/mL Normal 08-04-2018 [facility] (37702) Comment: Result Comment: REF VALUES NEGATIVE: <= 4 IU/ML EQUIVOCAL: 5- 9 IU/ML POSITIVE: >=10 IU/ML Performed By: #### ESRWS ### # [facility] [address] [place] [address] ANTI-MANOHAR-1 <0.2 Normal 08-04-2018 [facility] (66893) Comment: Result Comment: REF VALUES < 1.0 = NEGATIVE >=1.0 = POSITIVE Performed By: #### ESRWS ### # [facility] [address] [place] [address] ANTI-RIBOSOMAL P <0.2 Normal 08-04-2018 [facility] (95133) Comment: Result Comment: REF VALUES < 1.0 = NEGATIVE >=1.0 = POSITIVE Performed By: #### ESRWS ### # [facility] [address] [place] [address] ANTI-FIELD ORGANIZER <0.2 Normal 08-04-2018 [facility] (22505) Comment: Result Comment: REF VALUES < 1.0 = NEGATIVE >=1.0 = POSITIVE Performed By: #### ESRWS ### # [facility] [address] [place] [address] ANTI-SCL-70 <0.2 Normal 08-04-2018 [facility] (73418) Comment: Result Comment: REF VALUES < 1.0 = NEGATIVE >=1.0 = POSITIVE Performed By: #### ESRWS ### # [facility] [address] [place] [address] ANTI-SM <0.2 Normal 08-04-2018 [facility] (32907) Comment: Result Comment: REF VALUES < 1.0 = NEGATIVE >=1.0 = POSITIVE Performed By: #### ESRWS ### # [facility] [address] [place] [address] ANTI-SM/FIELD ORGANIZER <0.2 Normal 08-04-2018 [facility] (28717) Comment: Result Comment: REF VALUES < 1.0 = NEGATIVE >=1.0 = POSITIVE Performed By: #### ESRWS ### # [facility] [address] [place] [address] ANTI-SSA <0.2 Normal 08-04-2018 [facility] (15391) Comment: Result Comment: REF VALUES < 1.0 = NEGATIVE >=1.0 = POSITIVE Performed By: #### ESRWS ### # [facility] [address] [place] [address] ANTI-SSB <0.2 Normal 08-04-2018 [facility] (90737) Comment: Result Comment: REF VALUES < 1.0 = NEGATIVE >=1.0 = POSITIVE Performed By: #### ESRWS ### # [place] [address] [place] [address] alt on 2018-08-04 ALT [Catalytic activity/Vol] 34 7 - 45 U/L Normal 0 08-04-2018 [facility] (00 000) Comment: Result Comment: Patients alex ated with Sulfasalazine may generate falsely decreased results fo r ALT. Performed By: #### ALT #### [facility] [address] [place] [address] follow up (rheumatology) on 2018-08-03 Follow Up Chief Complaint Normal 08-03-2018 [facility] (Rheumatology) (0000 0) SLE follow-up History of Present Illness PCP thinks she has POTS--has dizziness, has symptoms after getting out a hot shower. 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 Does not exercise (V69.0) (Z72.3) Lack of adequate sleep (V69.4) (Z72.820) Lives in [place] No alcohol use No caffeine use No [...] Aerosol Soluti on Vitals Vital Signs Recorded: [id number] 07:39AM Qsboobpaczt29.1 F, Oral Heart Rate85 Awvikwpm089, LUE, Sitting Hascaeusy72, LUE, Sitting Blood Pressure Cuff SizeAdult Zqicna471 lb BMI Xmkhxmgkfm40.43 BSA Calculated1.93 O2 Pjsalmbbxz53 Physical Exam Constitutional General appearance: Alert and [...] - Lab T o Draw (Blood Test); Due:[id number];Ordered; For:Systemic lupus erythematosus with other organ involvement; Ordered By:Latasha Benites; Provider Impressions Patient's primary care provi chay manages all preventive care testing, wellness exams, and vaccinations. Age appropriate recommendations made The patient's labs, radiolog y images and reports, and other tests since previous appointment were obtained, reviewed, and summarized as applicable from the physician portal, electronic medical records s tenv and/or outside source s. Pertinent positive and [...] on 2018-06-27 MELINDA Telephone (AGGYNBMG) Normal 9 [facility] FLORAJAZLYN ([id number]) 1965 F Medical Date Time Provider Department Center 06/27/18 KIMBERLY BOLTON ([id number]) During your visit today, we recorded the [...] progress on 2018-05 Protein mass HNO ID: [id number] Normal 06-20-19 19 [facility] Author: Kimberly Bolton General Service: (none) [facility] Author Type: Physician Center Type: Progress Notes ([id number]) Filed: 06/20/2018 10:20 AM Note Text: Jazlyn [...] - Rectocele 05/13/2009 - SVT (supraventricular tachycardia) ([facility]) - Syncope 05/14/2013 -Reported that she had [...] stroke - Colon Cancer Father age 64 SD - Diabetes Father Type 2 - Hypertension Father - Coronary Artery Disease Father Hx of SD - Thyroid Sister hx of parathyroid disease/ [...] 6 Occupational History Occupation Employer Comment disabled [employer] Social History Main Topics Smoking status: Current [...] hematuria, nocturia, incontinence. 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 discharge, irregular bleedi [...] 2018-06-20 [facility] Office Visit (AGGYNBMG) Normal 2018 [facility] JAZLYN GARZON ([id number]) 1965 F Medical Date Time Provider Department Center 06/20/18 9:30 AM KIMBERLY BOLTON [facility] ([id number]) During your visit today, we recorded the [...] - Rectocele 05/13/2009 - SVT (supraventricular tachycardia) ([facility]) - Syncope 05/14/2013 -Reported that she had [...] stroke - Colon Cancer Father age 64 SD - Diabetes Father Type 2 - Hypertension Father - Coronary Artery Disease Father Hx of SD - Thyroid Sister hx of parathyroid disease/ [...] 6 Occupational History Occupation Employer Comment disabled [employer] Social History Main Topics Smoking status: Current [...] hematuria, nocturia, incontinence. 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 discharge, irregular bleedi [...] Hives Date Reviewed: 06/20/2018 Reviewed by: Nayeli ([facility]) Wendie - Fully Assessed Reason for Visit: Discuss Hormones [Other] Reason For Visit History Recorded Primary Visit Diagnosis:Symptomatic menopausal or female c limacteric states [N95.1] Other Visit Diagnoses:Postablative hypothyroidism [E89.0] Estrogen deficiency [E28.39] Order(s):T3 FREE BLD [SQFREET3] Order #: [id number] FUTURE T4 FREE/FREE THYROX [SQFT4] Order #: [id number] FUTURE REVERSE T3 [CYP3KRE] Order #: [id number] FUTURE T3 BLD [SQT3] Order #: [id number] FUTURE T4/THYROXINE BLOOD [SQT4] Order #: [id number] FUTURE COMPOUNDED PRESCRIPTIONPROGESTERONE CREAM APPLY 5 MG AT HS A S DIRECTEDDisp: 150 mgRfl: 3 COMPOUNDED PRESCRIPTIONTESTOSTERONE CREAM APPLY 0.25MG Q AM DIRECTEDDisp: 7.5 mgRfl: 5 DXA-AXIAL SKELETON [[id number]] Order #: [id number] FUTURE Prescriptions as of 06/20/2018 Sig: SYNTHROID [...] of Service: WELLNESS EXAMS NEW 40-64 YRS [03305] Disposition: Return in about 1 year (around 06/20/2019). Follow-up and Disposition History Recorded Encounter Status:Closed by KIMBERLY BOLTON MD on 06/20/18 follow up (rheumatology) on 2018-01-19 Follow Up Chief Complaint Normal 01-19-2018 [facility] (Rheumatology) Lupus follow up (33785) History of Present Illness The patient is [...] (V19.4) (Z82. 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 Does not exercise (V69.0) (Z72.3) Lack of adequate sleep (V69.4) (Z72.820) Lives in [place] No alcohol use No caffeine use No [...] 17Dec2015 to (Evaluate:16Mar2016) Requested for: ; Last Rx:[id number]; Status: ACTIVE - Renewal Denied, Transmit to [facility] - Awaiting Verification Ordered Rx By: Gray Padilla; D ispense: 30 Days ; #:30 Capsule; Refill: 2;For: PMH: History of muscle pain, PMH: Polyarthralgia; FRANCESCO = N; Transmitted To: [address] Hydroxychloroquine Sulfate 2 00 MG Oral Tablet; take 1 tablet by mouth once daily; Therapy: 22Jan2016 to (Evaluate:02Feb2018) Requested for: ; Last Rx:06Aug2017 Ordered Rx By: Latasha Benites; Dis pense: 30 Days ; #:30 TAB; Refill: 5;For: Systemic lupus erythematosus; FRANCESCO = N; Verified Transmission to [address]; Last Updated By: Shoshana Mann; 08/06/2017 10:00:13 AM ALPRAZolam 1 MG Oral Tablet; TAKE 1 TABLET 3 TIMES DAILY NEEDED; Therapy: 77Nvp6218 to Recorded Dispense: 0 Days ; #: Suffic ient Tablet; Refill: 0; FRANCESCO = N; Record; Last Updated By: aPti Onofre; 11/13/2015 8:34:25 AM Dexamethasone 1 MG Oral Tablet; Therapy: 08Zhw5536 to Recorded Dispense: 1 Days ; #:1 TABS; Refill: 0; FRANCESCO = N; Record; Last Updated By: Latasha Benites; 01/16/2018 4:18:27 PM Duavee 0.45-20 MG Oral Tablet; Therapy: 28Jan2017 to Recorded Dispense: 30 Days ; #:30 TAB S; Refill: 0; FRANCESCO = N; Record; Last Updated By: Latasha Benites; 01/16/2018 4:18:27 PM Estradiol 0.025 MG/24HR Transdermal Patch Weekly; Therapy: 25Kgs3695 to Recorded Dispense: 28 Days ; #:4 [...] to Recorded Dispense: 25 Days ; #:100 SD SC; Refill: 0; FRANCESCO = N; Record; Last Updated By: Latasha Benites; 01/16/2018 4:18:27 PM FreeStyle Lancets Miscellaneous; Therapy: 01Nov2017 to Recorded Dispense: 25 Days ; #:100 SD SC; Refill: 0; FRANCESCO = N; Record; Last Updated By: Latasha Benites; 01/16/2018 4:18:27 PM FreeStyle Lite Test In Vitro Strip; Therapy: 69Nkv5037 to Recorded Dispense: 25 Days ; #:100 ST RP; Refill: 0; FRANCESCO = N; Record; Last Updated By: Latasha Benites; 01/16/2018 4:18:27 PM Gabapentin 100 MG Oral Capsule; Therapy: 19Oct2017 to Recorded Dispense: 30 Days ; #:60 CAP S; Refill: 0; FRANCESCO = N; Record; Last Updated By: Latasha Benites; 01/16/2018 4:18:27 PM Hydrocortisone 20 MG Oral Tablet; Therapy: 22Jqi6471 to Recorded Dispense: 30 Days ; #:480 [...] Natural Magnesium 250 MG Oral Tablet; Therapy: 58Jyc2913 to Recorded Dispense: 30 Days ; #:30 [...] Base) MCG/ACT Inhalation Aerosol Soluti on; Therapy: 76Jah9059 to Recorded Dispense: 17 Days ; #:18 AER S; Refill: 0; FRANCESCO = N; Record; Last Updated By: Latasha Benites; 07/22/2016 12:39:12 PM Vitals Vital Signs Recorded: 19Jan2018 07:47AM Gasxnouhiiz35.5 F, Oral Heart Rate91 Nnbhgowp448, LUE, Sitting Ysyimypyi54, LUE, Sitting Blood Pressure Cuff SizeAdult Gunllo192 lb BMI Omjnnlhsca14.83 BSA Calculated1.9 O2 Stedsllomg25 Physical Exam Constitutional General appearance: Alert and [...] 1 TABLET 3 TIMES DAILY NEEDED; Therapy: 55Tkv6574 to Recorded Dexamethasone 1 MG Oral Tablet; Therapy: 53Ihp1676 to Recorded Duavee 0.45-20 MG Oral Tablet; Therapy: 55Fpz2882 to Recorded Estradiol 0.025 MG/24HR Transdermal Patch Weekly; Therapy: 95Pcc1158 to Recorded Ferrous Gluconate 324 (38 Fe) MG Oral Tablet; Therapy: 64Zgu3181 to Recorded FLUoxetine HCl - 10 MG Oral Capsule; Therapy: 92Naq9639 to Recorded FreeStyle Lancets Miscellaneous; Therapy: 13Zkf5804 to Recorded FreeStyle Lancets Miscellaneous; Therapy: 01Nov2017 to Recorded FreeStyle Lite Test In Vitro Strip; Therapy: 01Nov2017 to Recorded Gabapentin 100 MG Oral Capsule; Therapy: 19Oct2017 to Recorded Gabapentin 300 MG Oral Capsule; TAKE 1 CAPSULE Bedtime; Therapy: 04Lsx1566 to (Evaluate:16Mar2016) Requested for: ; Last Rx:[id number]; Status: ACTIVE - Renewal Denied, Transmit to [...] w/o Patient Name: JAZLYN GARZON Normal 10-12-2017 [facility] Contrast FIN: Rupinder yserik [id number] MRI Exam Date/Time 10/12/2017 08:18:01 EDT Exam MRI Brain w/o Contrast Ordering Physician MD STU, TAMMY ASTUDILLO Accession Number [id number] CPT4 Codes 46406 () Reason For Exam dizziness Report MRI [...] on 2017-02-15 Dietary management yes Invalid 02-15-2017 [facility] Surgical education, Interpretation Code 7 Associates guidance, and (29792 ) counseling (procedure) Documentation of Done Invalid 02-15-2017 [facility] Surgical current medications Interpretation Code 02-15-2017 Associates (procedure) (79702) Fall risk No Invalid 02-15-2017 [facility] Ramila gical assessment Interpretation Code 7 Associates (38569) Protein mass conc Done Invalid 02-15-2017 [facility] Surgical Interpretation Code 02-15-2017 Associates (07705) Protein mass conc yes Invalid 02-15-2017 [facility] Surgical Interpretation Code 02-15-2017 Associates (92461) Smoking cessation yes Invalid 02-15-2017 [facility] Surgical education Interpretation Code 02-15-2017 Associates (procedure) (72434) Tobacco smoking Never Invalid 02-15-2017 - [facility] Surgical status NHIS Interpretation Code 02-16-20 17 Associates (99031) Tobacco smoking Current every Invalid 02-15-2017 - [facility] Surgical status HIIS day smoker Interpretation Code 017 Associates (99168) Tobacco use CPHS Current every Invalid 7 - [facility] Surgical day smoker Interpretation Code 7 Associates (04781) office visit: discuss endo on 2017-01-13 Dietary management yes Invalid 01-13-2017 - [facility] Surgical education, Interpretation Code 7 Associates guidance, and (28347 ) counseling (procedure) Documentation of Done Invalid 01-13-2017 - [facility] Surgical current medications Interpretation Code 01-13-2017 Associates (procedure) (10274) Fall risk No Invalid 01-13-2017 - [facility] Ramila gical assessment Interpretation Code 7 Associates (49505) Protein mass conc Done Invalid 01-13-2017 - [place] Interpretation Code 01-13-2017 [facility] (62005) Protein mass conc yes Invalid 01-13-2017 - [place] Interpretation Code 01-13-2017 [facility] (16681) Smoking cessation yes Invalid 01-13-2017 - [facility] Surgical education Interpretation Code 01-13-2017 Associates (procedure) (81493) Tobacco smoking Current Invalid 01-13-2017 - [place] status HIIS every day Interpretation Code 01-14-20 17 [facility] smoker (59267) Tobacco smoking Never Invalid 01-13-2017 - [facility] Surgical status [facility] Interpretation Code 01-14-20 17 Associates (27121) Tobacco use CPHS Current Invalid 01-13-2017 - [facility] Surgical every day Interpretation Code 01-13-2017 Associates smoker (90242) replaced document: midmark ecg observati ons on 2017-01-08 EKG QRS axis 80 deg Invalid 01-08-2017 - [place] Interpretation 01-08-2017 [facility] Code (24090) electrocardiogram Sinus Rhythm Invalid 7 - [facility] interpretation -Nonspecific Interpretation 017 Group (69579) ST depression Code -[place] c. ABNORMAL GE use only - for 417 ms Invalid 01-08-2017 - [place] [facility] import when Interpretation Group (34807) terms are not Code otherwise specified Interpretation Sinus Rhythm Invalid 01-08-2017 - [place] -Nonspecific Interpretation 01-08-[address] depression Code (40735 ) -[place] c. ABNORMAL P [place] 49 deg Invalid 01-08-2017 - [place] Interpretation 01-08-2017 [facility] Code (30532) P wave axis, 49 deg Invalid 01-08-2017 - [facility] electrocardiogram Interpretation 017 Group (52372) Code AL Interval 130 ms Invalid 01-08-2017 - [place] Interpretation 01-08-2017 [facility] Code (12016) AL interval, 130 ms Invalid 01-08-2017 - [facility] electrocardiogram Interpretation 017 Group (29676) Code Pulse (Heart Rate) 96 BPM /min Invalid 01-08-2017 - [place] [facility] Interpretation 01-08-2017 Grou p (88016) Code QRS axis, 80 deg Invalid 01-08-2017 - [facility] electrocardiogram Interpretation 017 Group (99022) Code QRS Duration 92 ms Invalid 01-08-2017 - [place] Interpretation 01-08-2017 [facility] Code (75855) QRS duration, 92 ms Invalid 01-08-2017 - [place] [facility] electrocardiogram Interpretation 017 Group (97446) Code QT Interval new path ms Invalid 01-08-2017 - [place] Interpretation 01-08-2017 [facility] Code (21969) QT interval, new path ms Invalid 01-08-2017 - [place] [facility] electrocardiogram Interpretation 017 Group (10102) Code QTc [place] 417 ms Invalid 01-08-2017 - [place] Interpretation 01-08-2017 [facility] Code (56096) T [place] 58 deg Invalid 01-08-2017 - [place] Interpretation 01-08-2017 [facility] Code (07391) T wave axis, 58 deg Invalid 01-08-2017 - [facility] electrocardiogram Interpretation 017 Group (62291) Code office visit: rishi wheat 2017-01-08 Dietary management yes Invalid 01-08-2017 - [place] [facility] education, Interpretation Code 7 Group (98558) guidance, and counseling (procedure) Documentation of Done Invalid 01-08-2017 - [facility] current medications Interpretation Code 01-08-2017 Group (27539) (procedure) Fall risk No Invalid 01-08-2017 - [place] [facility] assessment Interpretation Code 7 Group (43039) Smoking cessation yes Invalid 01-08-2017 - [facility] Interpretation Code 01-08-2017 Group (00629) (procedure) Tobacco use CPHS Current every Invalid 7 - [facility] day smoker Interpretation Code 7 Group (74283) lab report: pap i-g hpv hi risk on 2016-12-19 GE use only - Negative Negative Invalid 12-19-2016 - [place] for [facility] Interpretation Code 2016 [facility] import when (83246) terms are not otherwise specified HPV HC,HGH RISK Negative Negative 12-19-2016 - [place] 12-19-2016 [facility] (81931) office visit: est annual on 2016-12-14 Documentation of Done Invalid 12-14-2016 - [place] current medications Interpretation Code 12-14-2016 [facility] (procedure) (57384) Fall risk No 12-14-2016 - [place] assessment 12-14-2016 [facility] (05549) Hemoglobin.gastroin not done 12-14-2016 - [place] testinal Ql (St) 12-14-2016 [facility] (26761) Protein mass conc Done 12-14-2016 - [place] 12-14-2016 [facility] (20334) Tobacco smoking Current 12-14-2016 - [place] status NHIS every day 12-14-2016 [facility] smoker (25098) Tobacco smoking Never 12-14-2016 - [place] status NHIS 12-14-2016 [facility] (63902) Tobacco use CPHS Current Invalid 12-14-2016 - [place] every day Interpretation Code 12-14-2016 [facility] smoker (39979) replaced document: (p) culture, urine on 2016-11-30 CUUR . 11-30-2016 - [place] [facility] 11-30-2016 Care (498 91) GE use only - for . Invalid Interpretation 11-30-2016 [facility] import Code 11-30-2016 Ca re (86653) when terms are not otherwise specified microbiology: (p) culture, urine on 2016-11-29 GE use only - Urine Invalid 11-29-2016 - [facility] for [facility] CultureCulture Interpretation Code 0 11-29-2016 [facility] import when exhibits no growth. (87675) terms are not otherwise specified office visit: patient concerned about cy st on 2016-11-27 Albumin Ql (U) negative 11-27-2016 - [place] 11-27-2016 [facility] (16637) Appearance Nom (U) cloudy 11-27-2016 - [place] 11-27-2016 [facility] (90540) Bilirubin Ql (U) negative 11-27-2016 - [place] 11-27-2016 [facility] (68724) blood in urine non-hemolyzed Invalid 11-27-2016 [place] (hemoglobin) by trace Interpretation 7 [facility] dipstick Code (36141) Color Nom (U) lt. yellow 11-27-2016 - [place] 11-27-2016 [facility] (57964) Documentation of Done Invalid 11-27-2016 [place] current Interpretation 11-27-2016 [facility] medications Code (96196) (procedure) Fall risk No Invalid 11-27-2016 [facility] assessment Interpretation 11-27-2016 [facility] Code (74328) Glucose Test strip negative 11-27-2016 [place] mass conc (U) 11-27-2016 [facility] (14020) Hemoglobin.gastroi not done Invalid 11-27-2016 [place] ntestinal Ql (St) Interpretation 017 [facility] Code (62343) Ketones mass conc negative 11-27-2016 [place] (U) 11-27-2016 [facility] (79385) Leukocyte esterase negative 11-27-2016 [place] Test strip Ql (U) 11-27-2016 [facility] (27804) Nitrite Ql (U) negative 11-27-2016 - [place] 11-27-2016 [facility] (45921) pH (U) 5.0 [pH] [facility]-27-2016 [facility] (20344) Protein mass conc Done 11-27-2016 - [place] 11-27-2016 [facility] (08637) Protein mass conc yes 11-27-2016 - [place] 11-27-2016 [facility] (94582) Smoking cessation yes Invalid 11-27-2016 - [place] education Interpretation 11-27-2016 [facility] (procedure) Code (42735) Specific gravity 1.010 11-27-2016 [place] Refractometry 11-27-2016 [facility] Relative Density (44 691) (U) specific gravity, 1.010 Invalid 11-27-2016 [place] urine Interpretation 11-27-2016 [facility] Code (57444) Tobacco smoking Current every 11-27-2016 - [place] status HIIS day smoker 11-27-2016 [facility] (98594) Tobacco smoking Never Invalid 11-27-2016 - [place] status NHIS Interpretation 11-27-2016 [facility] Code (34483) Tobacco use CPHS Current every Invalid - [place] day smoker Interpretation 11-27-2016 [facility] Code (05130) Urine, bilirubin negative Invalid 11-27-2016 [place] presence Interpretation 11-27-2016 [facility] Code (90650) Urine, glucose negative Invalid 11-27-2016 - [place] presence Interpretation 11-27-2016 [facility] Code (45031) Urine, ketones negative Invalid 11-27-2016 - [place] presence Interpretation 11-27-2016 [facility] Code (57326) Urine, nitrite negative Invalid 11-27-2016 - [place] presence Interpretation 11-27-2016 [facility] Code (46900) Urine, pH 5.0 [pH] Invalid 11-27-2016 [facility] Interpretation 11-27-2016 [facility] Code (73710) Urine, protein negative mg/dL Invalid 11-27-2016 - [place] Interpretation 11-27-2016 [facility] Code (77350) Urobilinogen Test negative 11-27-2016 - [place] strip Ql (U) 11-27-2016 [facility] (17971) office visit: est annual on 2016-11-16 Fall risk assessment No 7 - [facility] Surgical 11-16-2016 Associate s (58649) Protein mass conc Done 11-16-2016 - [facility] Surgical 11-16-2016 Associate s (46663) Tobacco smoking Current every day 2016 - [facility] Surgical status HIIS smoker 11-16-2016 [facility] (23313) Tobacco smoking Never 11-16-2016 - [facility] Surgical status HIIS 11-16-2016 [facility] inoc[facility] (22194) office visit: mmm o n 2014-08-22 cardiac risk group B 08-22-2014 - [facility] Surgical 08-22-2014 Associate s (21139) Dietary management yes Invalid 08-22-2014 [facility] education, Interpretation 08-22-2014 [facility] guidance, and Code (95779 ) counseling (procedure) General Not enough 08-22-2014 [facility] Patterson rgical cardiovascular information 08-22-2014 As sociates disease 10Y risk (82 787) [#] [place].D'[place]osti no Protein mass conc yes 08-22-2014 - [facility] Surgical 08-22-2014 Associate s (25367) chart maintenance o n 2013-11-20 Hematocrit (HCT) 42.5 % Invalid 11-20-2013 - [place] Interpretation Code 11-20-2013 [facility] (48392) Hematocrit Volume 42.5 % 11-20-2013 [facility] Surgical Fraction (Bld) 11-20-2013 Asso ciainocencio (53105) Hemoglobin mass 14.5 g/dL 11-20-2013 - [facility] conc (Bld) 11-20-2013 Associat es (52809) Platelets 272 10*3/mm3 Invalid 11-20-2013 - [facility] [place] Interpretation Code 11-20-2013 [facility] (14792) Platelets #/vol 272 10*3/mm3 11-20-2013 - [facility] Surgical (Bld) 11-20-2013 Associate s (70586) WBC #/vol (Bld) 10.2 10*9/L 11-20-2013 - [facility] 11-20-2013 Associate s (32430) WBC (Leukocytes) 10.2 10*9/L Invalid 11-20-2013 - [place] Interpretation Code 11-20-2013 [facility] (29786) chart maintenance o n 2013-10-21 Anion gap 7 mmol/L Invalid 10-21-2013 - [facility] Interpretation Code 10-21-2013 [facility] (95445) Anion gap 4 molar 7 Invalid 10-21-2013 - [place] conc Interpretation Code 10-21-2013 [facility] (61257) Anion gap molar 7 mmol/L 10-21-2013 - W Surgical [facility] 10-21-2013 Associate s (37038) Calcium mass conc 8.9 mg/dL 10-21-2013 - [facility] Surgical 10-21-2013 Associate s (60005) Chloride molar 109 mmol/L High 10-21-2013 - [facility] Surgical conc 10-21-2013 Associate s (51714) CO2 26 mmol/L Invalid 10-21-2013 - [facility] Interpretation Code 10-21-2013 [facility] (87946) CO2 ppres (BldV) 26 mmol/L 10-21-2013 - [facility] Surgical 10-21-2013 Associate s (65010) Creatinine mass 0.8 mg/dL 10-21-2013 - W Surgical conc 10-21-2013 Associate s (42169) Glucose 118 mg/dL [facility] (95959) Glucose mass conc 118 mg/dL High 10-21-2013 - [facility] Surgical 10-21-2013 Associate s (80656) Potassium molar 3.4 mmol/L Low 10-21-2013 - [facility] Surgical conc 10-21-2013 Associate s (11424) Sodium molar conc 142 mmol/L 10-21-2013 - [facility] Surgical 10-21-2013 Associate s (35593) Thyrotropin Qn 3.36 u[iU]/mL 10-21-2013 - [facility] Surgical 10-21-2013 Associate s (02748) Urea nitrogen 8 mg/dL 10-21-2013 - [facility] Surgical mass conc 10-21-2013 Associate s (42204) Urea 10.0 mg/mg 10-21-2013 - [facility] Ramila gical nitrogen/Creatini 10-21-2013 A ssociates ne mass ratio (68494 ) clinical lists update: preload on 2012-12-28 Erythrocytes (RBC) 5.04 10*6/uL Invalid 12-28-2012 - [place] Interpretation Code 12-28-2012 [facility] (33032) MCH 32.3 pg High 12-28-2012 - [place] 12-28-2012 [facility] (27529) MCH Entitic mass 32.3 pg High 12-28-2012 - [facility] Surgical (RBC) 12-28-2012 Associate s (81785) MCV 94.2 fL Invalid 12-28-2012 - [facility] Interpretation Code 12-28-2012 [facility] (15810) MCV Entitic volume 94.2 fL 12-28-2012 - [facility] Surgical (RBC) 12-28-2012 Associate s (26000) RBC #/vol (Bld) 5.04 10*6/uL 12-28-2012 - [facility] Surgical 12-28-2012 Associate s (95591) replaced document: midmark ecg observati ons on 2012-11-25 EKG QRS axis 54 deg 11-25-2012 - [facility] Surgical 11-25-2012 Associate s (65370) electrocardiogram Sinus Rhythm Invalid 3 - [place] interpretation -With rate Interpretation 3 [facility] variation cv Code (04149) = 10.-Nonspecif ic ST depression -[place] c . ABNORMAL Interpretation Sinus Rhythm 11-25-2012 - [facility] Surgical -With rate 11-25-2012 Associat es variation cv (80314) = 10.-Nonspecif ic ST depression -[place] . ABNORMAL P [place] 49 deg 11-25-2012 - [facility] Ramila gical 11-25-2012 Associate s (17865) P wave axis, 49 deg Invalid 11-25-2012 - [place] electrocardiogram Interpretation 013 [facility] Code (18141) AL Interval 132 ms 11-25-2012 - [facility] S urgical 11-25-2012 Associate s (83467) AL interval, 132 ms Invalid 11-25-2012 - [place] electrocardiogram Interpretation 013 [facility] Code (05581) Pulse (Heart Rate) 73 BPM /min Invalid 11-25-2012 - [place] Interpretation 11-25-2012 [facility] Code (32321) Pulse (Heart Rate) 413 ms Invalid 11-25-2012 - [place] Interpretation 11-25-2012 [facility] Code (76481) QRS axis, 54 deg Invalid 11-25-2012 - [place] electrocardiogram Interpretation 013 [facility] Code (14301) QRS Duration 96 ms 11-25-2012 - [facility] Surgical 11-25-2012 Associate s (84905) QRS duration, 96 ms Invalid 11-25-2012 - [place] electrocardiogram Interpretation 013 [facility] Code (09137) QT Interval new path ms 11-25-2012 - [facility] Surgical 11-25-2012 Associate s (30768) QT interval, new path ms Invalid 11-25-2012 - [facility] electrocardiogram Interpretation 013 [facility] Code (81651) T [place] 48 deg 11-25-2012 - [facility] Ramila gical 11-25-2012 Associate s (70327) T wave axis, 48 deg Invalid 11-25-2012 - [place] electrocardiogram Interpretation 013 [facility] Code (21875) ekg report: midmark ecg observations on 2012-11-25 QTc [place] 412 ms 11-25-2012 - 2012 [facility] (56912) Vital Signs Vital Sign Description Value / Unit Date Location The following section is limited to 5 en tries per type and includes entries from the following time range: 20161127 - [id number] 0. BMI (Body Mass Index) 37.49 kg/m2 01-13-2017 - 01-13-2017 [facility] (84008) BMI (Body Mass Index) 37.55 kg/m2 01-08-2017 - 01-08-2017 [facility] (23292) BMI (Body Mass Index) 37.13 kg/m2 12-14-2016 - 12-14-2016 [place] [facility] (03037) BMI (Body Mass Index) 36.58 kg/m2 11-27-2016 - 11-27-2016 [facility] (53810) BMI (Body Mass Index) 36.94 kg/m2 11-16-2016 - 11-16-2016 [facility] (56312) Body Temperature 98.4 [degF] 01-13-2017 - 01-13-2017 [facility] gical Associates (39499) Body Temperature 97.11 [degF] 12-14-2016 - 12-14-2016 [place] [facility] (05855) Body Temperature 97.1 [degF] 12-14-2016 - 12-14-2016 [place] [facility] (41257) Body Temperature 97.8 [degF] 11-27-2016 - 11-27-2016 [place] [facility] (28408) Body Temperature 97.81 [degF] 11-27-2016 - 11-27-2016 [place] [facility] (39299) Body weight 91.63 kg 02-05-2020 [facility] (62193) BP Diastolic 84 mm[Hg] 02-05-2020 [facility] (96736) BP Diastolic 77 mm[Hg] 01-13-2017 - 01-13-2017 [facility] Surg ical Associates (95736) BP Diastolic 82 mm[Hg] 01-08-2017 - 01-08-2017 [facility] (60089) BP Diastolic 75 mm[Hg] 12-14-2016 - 12-14-2016 [place] [facility] (65727) BP Diastolic 84 mm[Hg] 11-27-2016 - 11-27-2016 [place] [facility] (29197) BP Systolic 142 mm[Hg] 02-05-2020 [facility] (36661) BP Systolic 114 mm[Hg] 01-13-2017 - 01-13-2017 [facility] Surg ical Associates (26211) BP Systolic 120 mm[Hg] 01-08-2017 - 01-08-2017 [facility] (77024) BP Systolic 113 mm[Hg] 12-14-2016 - 12-14-2016 [place] [facility] (14514) BP Systolic 127 mm[Hg] 11-27-2016 - 11-27-2016 [place] [facility] (98583) BSA (Body Surface Area) 1.83 m2 08-22-2014 - 08-22-2014 [facility] (70748) Heart rate 96 /min 01-08-2017 - 01-08-2017 [place] [facility] (74251) Heart rate 413 ms 11-25-2012 - 11-25-2012 [facility] S[facility] ical [facility] (36871) Heart rate 73 /min 11-25-2012 - 11-25-2012 [facility] S[facility] (43411) Height 157.48 cm 01-13-2017 - 01-13-2017 [facility] (52043) Height 157.48 cm 01-08-2017 - 01-08-2017 [facility] (35393) Height 157.48 cm 12-14-2016 - 12-14-2016 [place] [facility] (90013) Height 157.48 cm 11-27-2016 - 11-27-2016 [place] [facility] (84252) Height 157.48 cm 11-16-2016 - 11-16-2016 [facility] Surg ical [facility] (30864) Pulse (Heart Rate) 100 /min 02-05-2020 [facility] (84910) Pulse (Heart Rate) 95 /min 01-13-2017 - 01-13-2017 [facility] S urgical Associates (31356) Respiratory Rate 16 /min 02-05-2020 [facility] (31085) Respiratory Rate 18 /min 01-13-2017 - 01-13-2017 [facility] Ramila gical Associates (98379) Respiratory Rate 20 /min 01-08-2017 - 01-08-2017 [place] [facility] ([id number]) Respiratory Rate 16 /min 12-14-2016 - 12-14-2016 [facility] ([id number]) Respiratory Rate 16 /min 11-27-2016 - 11-27-2016 [facility] ([id number]) Weight 92.99 kg 01-13-2017 - 01-13-2017 [facility] ([id number]) Weight 93.13 kg 01-08-2017 - 01-08-2017 [facility] ([id number]) Weight 92.08 kg 12-14-2016 - 12-14-2016 Emer[facility] ([id number]) Weight 90.72 kg 11-27-2016 - 11-27-2016 [facility] ([id number]) Encounters Date Type Reason Provider Location 12-12-2019 - 12-12-2019 Chart abstracting Sleep Center Main Neu[facility] Comment: HSAT Check In (Adult) 02-01-2020 - 02-01-2020 [facility] Hypoxia Hugo Nava [facility] Comment: Hypoxia (Primary Dx); ANDRESSA (obstructive sleep apnea ); Depression, unspecified depr ession type; Impaired glucose tolerance; Attention deficit hyperactiv ity disorder (ADHD), combined type 01-29-2020 - E-mail encounter [facility] Provider Zack rubio 01-29-2020 from carer 10-12-2017 Patient Dizziness and UNKNOWN PROVIDER [facility] encounter giddiness Perez [email or web address] ([phone]) Hugo Nava 06-30-2017 Patient [...] - Patient encounter Obstructive sleep Hugo Nava [facility] 01-24-2020 procedure apnea syndrome [facility] Comment: RE: Test Result Question 01-04-2020 - Patient encounter Bacterial Hugo Nava [facility] 01-04-2020 procedure sinusitis [place] Comment: Bacterial sinusitis (Primary Dx) 12-14-2019 - Patient Hugo [facility] 12-14-2019 encounter procedure 12-11-2019 - Patient Postablative [facility] [place] 12-11-2019 encounter hypothyroidism (Pa-C) Ceja [facility] procedure Comment: Swelling of both lower extre mities (Primary Dx); Postablative hypothyroidism; Elevated hemoglobin (HCC) 12-07-2018 Patient encounter Disease [facility] Medical procedure [facility] ([id number]) 08-03-2018 Patient encounter Disease [facility] ([id number]) 06-20-2018 - Patient encounter SENIA Antonieta Brittany Facility:Brittany [facility] 06-20-2018 procedure IMCA [facility] LATASHA BOLTON 01-19-2018 Patient encounter Disease [facility] ([id number]) 09-22-2017 Patient encounter Disease [facility] ([id number]) 06-21-2017 Patient encounter Disease [facility] ([id number]) 02-05-2020 - Phys/qhp online Treatment not Marlin [...] Ceja patient 01-29-2020 - [facility] 01-29-2020 [facility] Comment: Results - Sleep Study 01-11-2020 - 01-11-2020 Telephone encounter Antonieta Kwong) Family Medicine Marcial Crawley Comment: needs notes supporting sleep study order 2019 - 2019 Telephone encounter Hugo Lemons [facility] Lexi Comment: results home sleep study Procedures Procedure Name Date Provider Location Polysom 6/>yrs sleep 4/> 12-14-2019 Hugo Cottrell [facility] addl unique attnd ([id number]) Mammography 06-16-2019 - [facility] 06-16-2019 ([id number]) Dietary management 02-15-2017 - [facility] Surgical education, guidance, and 02-15-2017 Assoc[facility] inocencio ([id number]) counseling Colonoscopy 02-10-2017 - [facility] 02-10-2017 ([id number]) Dietary management 01-13-2017 - [facility] michele education, guidance, and 01-13-2017 Care ([id number]) counseling Screening for malignant 01-13-2017 [facility] neoplasm of colon [facility] (43532) Ecg routine ecg w/least 12 01-08-2017 - Ayan Koehler NP [facility] d[facility] lds w/i&r 01-08-2017 Care ([id number]) Follow Up Appt 6 months 01-08-2017 - Ayan Koehler NP [facility] 01-08-2017 Care ([id number]) PF 01-08-2017 - 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 [facility] 01-08-2017 Care ([id number]) Electrocardiogram, complete 01-08-2017 - Ayan Koehler [facility] 01-08-2017 ([id number]) Follow Up Appt 6 months 01-08-2017 - Ayan Koehler NP [facility] 01-08-2017 ([id number]) PF 01-08-2017 - Ayan Koehler NP [facility] 01-08-2017 ([id number]) Gynecologic examination 12-14-2016 [facility] ([id number]) Screening for malignant 12-14-2016 [facility] neoplasm of cervix [facility] (65754) Gynecologic examination 12-14-2016 [facility] (12365) Screening for malignant 12-14-2016 [facility] neoplasm of cervix [facility] (02084) Bacteria identified in 11-27-2016 - Michelle Sexton [facility] Urine by Culture 12-21-2016 Care ([id number]) Urinalysis 11-27-2016 - [facility] 11-27-2016 Care ([id number]) Bacteria identified in 11-27-2016 - Michelle Sexton [facility] Urine by Culture 12-21-2016 Care ([id number]) Dietary management 08-22-2014 - [facility] Surgical education, guidance, and 08-22-2014 [facility] inoc[facility]io (07537) counseling Documentation of current 08-22-2014 - [facility] 08-23-2014 [facility] ([id number]) Follow Up Appt Other 08-22-2014 - Annabella Baker [facility] 08-22-2014 [facility] Care ([id number]) Smoking cessation education 08-22-2014 - Pati Richardson , [facility] 08-23-2014 PA[facility] Care ([id number]) Documentation of current 08-22-2014 - Pati Richardson, W Surgical medications 08-23-2014 [facility] ([phone] 1) Follow Up Appt Other 08-22-2014 - Pati Richardson, [facility] S urgical 08-22-2014 [facility] ([id number] 1) Smoking cessation education 08-22-2014 - Pati Richardson , [facility] Surgical 08-23-2014 [facility] ([phone] 1) Follow Up Appt 6 months 11-20-2013 [facility] ([id number]) [facility] 11-20-2013 - Blair Canseco MD [facility] 11-20-2013 Care ([id number]) Follow Up Appt 6 months 11-20-2013 - Blair Canseco MD [facility] Surgical 11-20-2013 Associates ([id number] 1) [facility] 11-20-2013 - Blair Canseco MD [facility] Surgical 11-20-2013 Associates ([phone] 1) Follow Up Appt 6 months 05-25-2013 - Pati Richardson [facility] 05-25-2013 PA-C Care ([id number]) [facility] 05-25-2013 - Pati Richardson [facility] 05-25-2013 PA-C Care ([id number]) Follow Up Appt 6 months 05-25-2013 - Pati Richardson [facility] Surgical 05-25-2013 [facility] ([id number] 1) [facility] 05-25-2013 - Pati Richardson [facility] 05-25-2013 [facility] ([phone] 1) Follow Up Appt 3 months 01-11-2013 - Pati Richardson [facility] 05-25-2013 PA-C Care ([id number]) [facility] 01-11-2013 [facility] ([id number]) Follow Up Appt 3 months 01-11-2013 - Pati Richardson, [facility] Surgical 05-25-2013 [facility] ([id number] 1) PFM 01-11-2013 - Pati Richardson, [facility] 05-25-2013 [facility] ([phone] 1) Ecg routine ecg w/least 12 11-25-2012 - Blair Canseco MD [facility] Women[facility] lds w/i&r 11-25-2012 Care ([id number]) Echocardiography 11-25-2012 - Blair Canseco MD [facility] 12-29-2012 Care ([id number]) Follow Up Appt 6 weeks 11-25-2012 - Blair Canseco MD [facility] 11-25-2012 Care ([id number]) MMM 11-25-2012 - Blair Canseco MD [facility] 11-25-2012 Care ([id number]) Stress Echocardiogram 11-25-2012 - Blair Canseco MD [facility] (treadmill) 12-29-2012 Care ([id number]) Xtrnl mobile cv telemetry 11-25-2012 - Blair Canseco MD [facility] Women's w/i&report 30 days 01-11-2013 Care ([id number]) Ecg routine ecg w/least 12 11-25-2012 - Blair Canseco MD W Surgical lds w/i&r 11-25-2012 Associates ([id number] 1) Echocardiography 11-25-2012 - Blair Canseco MD [facility] 12-29-2012 Associates ([phone] 1) Follow Up Appt 6 weeks 11-25-2012 - Blair Canseco MD [facility] S urgical 11-25-2012 Associates ([id number] 1) MMM 11-25-2012 - Blair Canseco MD [facility] Surgical 11-25-2012 Associates ([id number] 1) Stress Echocardiogram 11-25-2012 - Blair Canseco MD [facility] (treadmill) 12-29-2012 Associates ([phone] 1) Xtrnl mobile cv telemetry 11-25-2012 - Blair Canseco MD [facility] Surgical w/i&report 30 days 01-11-2013 Associates ([id number]) Oophorectomy [facility] (99511) Plan of Treatment Plan Description Date Location DTAP,TDAP,TD (2 - Td) DTAP,TDAP,TD (2 - Td) 01-26-2028 - [facility] 01-26-2028 ([id number]) LIPID SCREEN LIPID SCREEN 12-03-2024 - [facility] 12-03-2024 ([id number]) HPV TESTING HPV TESTING 11-25-2023 - [facility] 11-25-2023 ([id number]) PAP TESTING PAP TESTING 11-25-2023 - [facility] 11-25-2023 ([id number]) DIABETES SCREEN DIABETES SCREEN 12-03-2022 - [facility] 12-03-2022 ([id number]) MAMMOGRAM MAMMOGRAM 06-16-2021 - [facility] 06-16-2021 ([id number]) ANNUAL PCP TEAM CHRONIC ANNUAL PCP TEAM CHRONIC 01-31-2021 - [facility] DISEASE VISIT DISEASE VISIT 01-31-2021 ([id number]) ANNUAL PCP TEAM CHRONIC ANNUAL PCP TEAM CHRONIC 01-03-2021 - [facility] DISEASE VISIT DISEASE VISIT 01-03-2021 ([id number]) ANNUAL PCP TEAM CHRONIC ANNUAL PCP TEAM CHRONIC 12-10-2020 - [facility] DISEASE VISIT DISEASE VISIT 12-10-2020 ([id number]) COLONOSCOPY COLONOSCOPY 02-11-2020 - [facility] 02-11-2020 ([id number]) COLORECTAL CANCER COLORECTAL CANCER 02-11-2020 [facility] inic SCREENING,SEE MODIFIER SCREENING,SEE MODIFIER ([phone]) T4 FREE/FREE THYROX T4 FREE/FREE THYROX Lab 01-25-2020 - [facility] Routine Postablative 12-10-2020 ([id number]) hypothyroidism Expected: 01/25/2020, Expires: 12/10/2020 Comment: Expected: 01/25/2020, s: 12/10/2020 TSH BLD TSH BLD Lab Routine 01-25-2020 - 12-10-2020 [facility] ([id number]) Postablative hypothyroidism Expected: 01/25/2020, Expires: 12/10/2020 Comment: Expected: 01/25/2020, s: 12/10/2020 INFLUENZA (#1) INFLUENZA (#1) 2019 - [facility] 12-26-2019 ([id number]) Appointment Appointment 09-15-2017 - [facility] 09-15-2017 ([id number]) Appointment Appointment 02-10-2017 - [place] [facility] 02-10-2017 Care ([id number]) Esophagus, Esophagus, 01-14-2017 - [place] [facility] gastroesophageal reflux gastroesophageal reflux 01-14-2017 Care ([id number]) test; Nash probe test; Nash probe Esophagus, Esophagus, 01-14-2017 - [facility] gastroesophageal reflux gastroesophageal reflux 01-14-2017 Care ([id number]) test; Nash probe test; Nash probe Colonoscopy Colonoscopy 01-13-2017 - [place] [facility] 01-13-2017 Care ([id number]) EGD; diagnostic EGD; diagnostic 01-13-2017 - [place] [facility] 01-13-2017 Care ([id number]) Appointment Appointment 01-13-2017 - [facility] 01-13-2017 ([id number]) Colonoscopy Colonoscopy 01-13-2017 - [facility] Surgical 01-13-2017 Associates (4469 1) EGD; diagnostic EGD; diagnostic 01-13-2017 - [facility] Surgical 01-13-2017 Associates ([phone] 1) Appointment Appointment 01-08-2017 - [facility] 01-08-2017 ([id number]) Follow Up Appt 6 months Follow Up Appt 6 months 01-08-2017 - [place] [facility] 01-08-2017 Care ([id number]) PFM PFM 01-08-2017 - [place] [facility] 01-08-2017 Care ([id number]) Follow Up Appt 6 months Follow Up Appt 6 months 01-08-2017 - [facility] 01-08-2017 ([id number]) PFM PFM 01-08-2017 - [facility] 01-08-2017 ([id number]) Appointment Appointment 12-14-2016 - [facility] Surgical 12-14-2016 Associates ([phone] 1) *CUUR - Culture, Urine *CUUR - Culture, Urine 11-27-2016 - [facility] ([place]) ([place]) 12-21-2016 Care ([id number]) US Pelvis US Pelvis 11-27-2016 - [place] [facility] 11-30-2016 Care ([id number]) US Transvaginal US Transvaginal 11-27-2016 - [place] [facility] 11-30-2016 Care ([id number]) Appointment Appointment 11-27-2016 - [place] [facility] 11-27-2016 Care ([id number]) *CUUR - Culture, Urine *CUUR - Culture, Urine 11-27-2016 - [facility] ([place]) ([place]) 12-21-2016 Care ([id number]) US Pelvis no information 11-27-2016 - [place] [facility] 11-30-2016 Care ([id number]) US Transvaginal US Transvaginal 11-27-2016 - [facility] 11-30-2016 Care ([id number]) SHINGRIX VACCINE (1 of SHINGRIX VACCINE (1 of 12-26-2015 - [facility] 2) 2) 12-26-2015 ([id number]) Follow Up Appt Other Follow Up Appt Other 08-22-2014 - [facility] 08-22-2014 Care ([id number]) Follow Up Appt Other Follow Up Appt Other 08-22-2014 - [facility] 08-22-2014 Associates ([phone] 1) Follow Up Appt 6 months Follow Up Appt 6 months 11-20-2013 - [place] [facility] 11-20-2013 Care ([id number]) MMM MMM 11-20-2013 - [facility] 11-20-2013 Care ([id number]) Follow Up Appt 6 months Follow Up Appt 6 months 11-20-2013 - [facility] Surgical 11-20-2013 Associates ([id number] 1) MMM MMM 11-20-2013 - [facility] Surgical 11-20-2013 Associates ([phone] 1) Follow Up Appt 6 months Follow Up Appt 6 months 05-25-2013 - [place] [facility] 05-25-2013 Care ([id number]) PFM PFM 05-25-2013 - [facility] n's 05-25-2013 Care ([id number]) Follow Up Appt 6 months Follow Up Appt 6 months 05-25-2013 - [facility] Surgical 05-25-2013 Associates ([id number] 1) PFM PFM 05-25-2013 - [facility] Surgical 05-25-2013 Associates ([phone] 1) Follow Up Appt 3 months Follow Up Appt 3 months 01-11-2013 - [place] [facility] 01-11-2013 Care ([id number]) PFM PFM 01-11-2013 - [place] [facility] 05-25-2013 Care (60265) Follow Up Appt 3 months Follow Up Appt 3 months 01-11-2013 - [facility] Surgical 01-11-2013 Associates ([phone] 1) PFM PFM 01-11-2013 - [facility] Surgical 05-25-2013 Associates ([id number] 1) EKG (In office) EKG (In office) 11-25-2012 - [place] [facility] 11-25-2012 Care ([id number]) Echocardiogram Echocardiogram 11-25-2012 - [facility] n's (complete) (complete) 11-25-2012 Care ([id number]) Follow Up Appt 6 weeks Follow Up Appt 6 weeks 11-25-2012 - [facility] Women's 11-25-2012 Care ([id number]) MMM MMM 11-25-2012 - [place] [facility] 11-25-2012 Care ([id number]) Stress Echocardiogram Stress Echocardiogram 11-25-2012 - [facility] (treadmill) (treadmill) 11-25-2012 Care ([id number]) 30 Day Holter Monitor 30 Day Holter Monitor 11-25-2012 - [facility] 11-25-2012 Care ([id number]) EKG (In office) EKG (In office) 11-25-2012 - [facility] Surgical 11-25-2012 Associates ([phone] 1) Echocardiogram Echocardiogram 11-25-2012 - [facility] Surgical (complete) (complete) 11-25-2012 Associates ([phone] 1) Follow Up Appt 6 weeks Follow Up Appt 6 weeks 11-25-2012 - [facility] Surgical 11-25-2012 Associates ([phone] 1) MMM MMM 11-25-2012 - [facility] Surgical 11-25-2012 Associates (4469 1) Stress Echocardiogram Stress Echocardiogram 11-25-2012 - [facility] Surgical (treadmill) (treadmill) 11-25-2012 Associates ([phone] 1) 30 Day Holter Monitor 30 Day Holter Monitor 11-25-2012 - [facility] Surgical 11-25-2012 Associates ([phone] 1) ADULT PREVNAR-13 ADULT PREVNAR-13 1984 - [facility] ic 1984 (64404) TWO PNEUMOVAX 5 YEARS TWO PNEUMOVAX 5 YEARS 1984 - [facility] APART PRIOR TO AGE 65 APART PRIOR TO AGE 65 1984 (441 95) (#1) (#1) HEPATITIS C SCREENING HEPATITIS C SCREENING 12-26-1983 - [facility] 12-26-1983 (45632) HIV SCREENING HIV SCREENING 12-26-1983 - [facility] 12-26-1983 (90663) PAP TITRATION PSG (CPAP, PAP TITRATION PSG (CPAP, 02-22-2021 [facility] BIPAP, ASV) BIPAP, ASV) Procedures (56865) Routine ANDRESSA (obstructive sleep apnea) 1 Occurrences starting 01/24/2020 until 02/22/2021 Comment: 1 Occurrences starting 01/23 until 02/22/2021 Patient education no information [facility] (09255) no information [facility] (80951) The following information is from the original human readable content Name Dates Details Planned Observations Planned Goals not documented Planned Encounters Appointment; Latasha Benites MD On: 03-May-2019 8:30 Immunizations Vaccine Notes Status Date Location Influenza Seasonal influenza, (completed) 01-10-2018 - [facility] Inj Quadrivalent Age injectable, 01-10-2018 ([id number]) 3+ quadrivalent, contains preservative Payers Payer Name Policy Number Location [facility] ([id number]) [employer] [id number] [facility] (88158) [employer] [id number] [facility] (44 195) [id number] [facility] (16861) The following information is from the original human readable contentNo Payer Records FoundNo Payer Records FoundNo Payer Records FoundNo Payer Records FoundNo Payer Records FoundNo Payer Records FoundNo Payer Records FoundNo Payer Records FoundNo Payer Records FoundNo Payer Records FoundNo Payer Records Found Social History Type Social History Date Location Description Tobacco smoking status Current every day smoker 1985 - [facility] NHIS 02-05-2020 ([id number]) History SDOH Social 2 12-08-2019 - [facility] Get Together 01-28-2020 (36455) History of tobacco use Cigarette Smoker 1985 [facility] (52231) Cigarettes smoked 12-08-2019 - [facility] ic current (pack per day) - 02-05-2020 (68734) Reported Tobacco use and exposure Never used 12-08-2019 - [facility] 02-05-2020 (14111) Alcohol intake Current non-drinker of 12-08-2019 - [facility] alcohol (finding) 02-05-2020 (84053) History SDOH Alcohol 1 12-08-2019 - [facility] Frequency 12-08-2019 (75894) History SDOH Alcohol Std 98 12-08-2019 - [facility] Drinks 12-08-2019 (74850) History SDOH Social 5 12-08-2019 - [facility] Phone 01-28-2020 (73168) NEGATED: Highlighted row - [facility] (38950) History SDOH Social 3 12-08-2019 - [facility] in[facility] Shinto 01-28-2020 (96950) History SDOH Physical 0 12-08-2019 - [facility] Activity DPW 12-08-2019 (85849) History SDOH Stress 4 12-08-2019 - [facility] 12-08-2019 (75650) History SDOH Education 17 12-08-2019 - [facility] 12-08-2019 (62275) Tobacco Comment Has quit intermittently, 08-13-2016 - [facility] And I'm working on it 08-13-2016 (60098) now. 1st AM cigarette 10-15 minutes after awake. Most desired is that one, or last of day before bed. Prior 8 month quits, resumed after pregnancies completed. TO Sex Assigned At Female [facility] (34668) Exposure to SARS-CoV-2 Not sure [facility] (event) (73478) Exposure to SARS-CoV-2 Unable to assess [facility] (event) (02677) The following information is from the original [...] performance issues are not documented Group-Iggy yen (57623) Mental Status Status Assessment Result Location NEGATED: Highlighted Cognitive status health [facility] al rowCognitive function issues are not documented Group-Von sumeet (88899) [Interpretation] Summary Purpose Family History No Family [...] Documents on File Type Date Recorded Patient Lath Hand Explanati on Advance Directive(s) 06/05/2015 8:15 AM Documents on File Type Date Recorded Patient Lath Hand Explanati on Advance Directive(s) 06/05/2015 8:15 AM [...] mildly elevated from last Seeing Treva in [place]: satisfied with care: thinks low testosterone Seeing [...] Abs Lymph 1.00 - 4.00 k/uL 3.59 [place]% % 8.5 Abs [place] <0.87 k/uL 1.01 (H) Eosin% % 2.4 [...] stroke ? Colon Cancer Father age 64 SD ? Diabetes Father Type 2 ? Hypertension Father ? Coronary Artery Disease Father Hx of SD ? 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 [facility] Staff. Visit prep complete. Comments :No The sleep study is scheduled for 12/12. Insurance: Payor: [facility] MEDICAID / Plan: [facility] MEDICAID / Product Type: Medicaid / Payor/Plan Subscr Sex Relation Sub. Ins. ID Effective Group Num 1. NESSA GARZON,JAZLYN M 1965 Female Self [id number] 05/27/16 [facility] [address] Carmen Jenkins documented in this encounterElijahHugo Cristo [...] ? Rectocele 05/13/2009 ? SVT (supraventricular tachycardia) ([facility]) ? Syncope 05/14/2013 -Reported that she had [...] stroke ? Colon Cancer Father age 64 SD ? Diabetes Father Type 2 ? Hypertension Father ? Coronary Artery Disease Father Hx of SD ? Thyroid Sister hx of parathyroid disease/ [...] with more than 50% of the total fcwz-gd-wook time of the visit in counseling / [...] stroke ? Colon Cancer Father age 64 SD ? Diabetes Father Type 2 ? Hypertension Father ? Coronary Artery Disease Father Hx of SD ? Thyroid Sister hx of parathyroid disease/ [...] [facility]AL CARDIOLOGY Cardiology ([facility]) [address] [facility] [id number] OUTPATIENT VISIT DATE 02/04/2020 PRIMARY CARE PHYSICIAN: Hugo Nava MD [address] [place] [address] REFERRING PHYSICIAN: Hugo Nava MD [address] [facility] [address] CHIEF COMPLAINT: Inappropriate sinus tachycardia and chest [...] Family history: Patient's father had his first SD at age 50. He had stents at [...] ? Rectocele 05/13/2009 ? SVT (supraventricular tachycardia) ([facility]) ? Syncope 05/14/2013 -Reported that she had [...] stroke ? Colon Cancer Father age 64 SD ? Diabetes Father Type 2 ? Hypertension Father ? Coronary Artery Disease Father Hx of SD ? Thyroid Sister hx of parathyroid disease/ [...] the years. Had a recent admission to [facility] emergency room on that hospital admission, [...] time spent: < 5 minutes. 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 [facility] provides no warranty or guarantee of the accuracy or completeness of information in this document. UNRECOGNIZED CONTENT PROVIDED BELOW FOR UNRECOGNIZED SECTION INFORMATION SOURCE DATE CREATED AUTHOR AUTHOR'S ORGANIZATIO N 10/12/2017 [facility] DATE CREATED AUTHOR AUTHOR'S ORGANIZATIO N 2017 [facility] DATE CREATED AUTHOR AUTHOR'S ORGANIZATIO N 06/15/2018 [facility] DATE CREATED AUTHOR AUTHOR'S ORGANIZATIO N 06/28/2018 [facility] DATE CREATED AUTHOR AUTHOR'S ORGANIZATIO N 12/07/2018 [facility] DATE CREATED AUTHOR AUTHOR'S ORGANIZATIO N 12/10/2018 [facility] DATE CREATED AUTHOR AUTHOR'S ORGANIZATIO N 05/03/2019 [facility] DATE CREATED AUTHOR AUTHOR'S ORGANIZATIO N 02/06/2020 [facility] diego UNRECOGNIZED CONTENT PROVIDED BELOW FOR UNRECOGNIZED SECTION Source Comments In the event this information is protected by the Federal Confidentiality of Alcohol and Drug Abuse Patient Records regulations: The Federal rules restrict any use of the information to criminally investigate or prosecute any alcohol or drug abuse patient.[facility] CenterIn the event this information is protected by the Federal Confidentiality of Alcohol and Drug Abuse Patient Records regulations: The Federal rules restrict any use of the information to criminally investigate or prosecute any alcohol or drug abuse patient.[facility] CenterIn the event this information is protected by the Federal Confidentiality of Alcohol and Drug Abuse Patient Records regulations: The Federal rules restrict any use of the information to criminally investigate or prosecute any alcohol or drug abuse patient.[facility] CenterIn the event this information is protected by the Federal Confidentiality of Alcohol and Drug Abuse Patient Records regulations: The Federal rules restrict any use of the information to criminally investigate or prosecute any alcohol or drug abuse patient.[facility] CenterIn the event this information is protected by the Federal Confidentiality of Alcohol and Drug Abuse Patient Records regulations: The Federal rules restrict any use of the information to criminally investigate or prosecute any alcohol or drug abuse patient.[facility] CenterIn the event this information is protected by the Federal Confidentiality of Alcohol and Drug Abuse Patient Records regulations: The Federal rules restrict any use of the information to criminally investigate or prosecute any alcohol or drug abuse patient.[facility] CenterIn the event this information is protected by the Federal Confidentiality of Alcohol and Drug Abuse Patient Records regulations: The Federal rules restrict any use of the information to criminally investigate or prosecute any alcohol or drug abuse patient.[facility] CenterIn the event this information is protected by the Federal Confidentiality of Alcohol and Drug Abuse Patient Records regulations: The Federal rules restrict any use of the information to criminally investigate or prosecute any alcohol or drug abuse patient.[facility] CenterIn the event this information is protected by the Federal Confidentiality of Alcohol and Drug Abuse Patient Records regulations: The Federal rules restrict any use of the information to criminally investigate or prosecute any alcohol or drug abuse patient.[facility] CenterIn the event this information is protected by the Federal Confidentiality of Alcohol and Drug Abuse Patient Records regulations: The Federal rules restrict any use of the information to criminally investigate or prosecute any alcohol or drug abuse patient.[facility] CenterIn the event this information is protected by the Federal Confidentiality of Alcohol and Drug Abuse Patient Records regulations: The Federal rules restrict any use of the information to criminally investigate or prosecute any alcohol or drug abuse patient.[facility] CenterIn the event this information is protected by the Federal Confidentiality of Alcohol and Drug Abuse Patient Records regulations: The Federal rules restrict any use of the information to criminally investigate or prosecute any alcohol or drug abuse patient.[facility] CenterIn the event this information is protected by the Federal Confidentiality of Alcohol and Drug Abuse Patient Records regulations: The Federal rules restrict any use of the information to criminally investigate or prosecute any alcohol or drug abuse patient.[facility] UNRECOGNIZED CONTENT PROVIDED BELOW FOR [...] CARDIOLOGY NEW PATIENT VISIT LEVEL 5 [address], [place] [address] Reason Comments Eye Problem UNRECOGNIZED CONTENT PROVIDED [...] most recent sleep study. All faxed to [facility] Sleep lab. elephone Encounter - Antonieta Ceja) - 01/11/2020 4:21 PM EDTPlease copy 12/27/19 Dr. Nava message and send. Too many notes and messages to go through. Can you find date of original test orders? Thanks, Cesar Ceja PA-C b Telephone Encounter - Darlene Donato LPN - 01/11/2020 8:18 AM Jatinder from [facility] Sleep [facility] calling patient is scheduled [...] up thank you. Patient is seen in [place], I do not have the pyote schedulers pool. Mague Ivory Ma elephone Encounter [...] - 01/29/2020 12:46 PM EDTLet her know [facility] contacted us. Even the the doctor reading it felt she should be treated with cpap, her insurance if refusing to cover at her level. We could have her see a sleep doc if she is willing. documented in this encounterTelephone Encounter - Hugo Nava - 01/31/2020 8:10 AM EDT noted documented in this encounter
== END 2019-09-12 12:21 | disposition home or self-care (01) ==
LOC: ED 10:56
PROVIDERS: Emergency Provider Emergency Medicine; PCP Family Medicine
DX: R00.2 Palpitations (principal); R20.2 Paresthesia of skin; R20.0 Anesthesia of skin; I10 Essential (primary) hypertension; E03.9 Hypothyroidism, unspecified; R51 Headache; F41.9 Anxiety disorder, unspecified; Z79.899 Other long term (current) drug therapy
CPT/HCPCS: 70450; 71045; 71275; 80048; 84443; 84484; 85025; 85379; 93005; 99284; Q9967; A4216

== ENCOUNTER 2019-10-15 09:25 | Emergency (ER) | payer MEDICAID, SELFPAY ==
[2019-09-28 13:54] VITALS: BMI 36.6
[2019-10-15 09:27] VITALS: BP 161/98; PULSE 134; RESP 19; TEMP 36.3; O2SAT 98; BMI 37.8
--- NOTE | 2019-10-15 09:35 | CT_ITS ---
STUDY: CTA CHEST REASON FOR EXAM: Female, 53 years old. SOB/FATIGUE RADIATION DOSAGE (If Supplied By Facility): CTDIvol = ( 11.25 ) mGy, DLP = ( 501.55 ) mGycm TECHNIQUE: The examination was performed with the intravenous administration of 100 ML ISOVUE 370. Post-processing of the angiographic images was performed, with multiplanar reformation and 3D reconstruction. Individualized dose optimization techniques were used for this CT. COMPARISON: September 12, 2019 and March 31, 2019 FINDINGS: Normal enhancement of the main pulmonary artery and right and left pulmonary arteries. There is limited enhancement of the bilateral peripheral pulmonary arteries. There is no demonstrated pulmonary embolism. Normal thoracic aorta and visualized great vessels. There is no demonstrated aortic dissection. Normal heart and pericardium. Normal mediastinum. Normal hilar regions. Normal visualized trachea and bronchi. The lungs are well expanded. There is mild emphysematous change of the lungs. There is stable mild groundglass infiltrate in the left upper lobe, series 2 image 187/240. Normal pleura. Normal chest wall structures. There are degenerative changes of thoracic spine. Normal visualized upper abdomen. CT/CTA Chest W/WO Contrast IMPRESSION: CTA chest examination, without a demonstrated pulmonary embolism or arterial dissection. Stable mild emphysema and chronic left upper lung changes. Electronically Signed: Paulo Trejo MD at 10:30 EDT , Service support ,
--- NOTE | 2019-10-15 09:35 | EKG12_ITS ---
Test Reason : DYSRHYTHMIA Blood Pressure : / mmHG Vent. Rate : 121 BPM Atrial Rate : 121 BPM P-R Int : 134 ms QRS Dur : 084 ms QT Int : 320 ms P-R-T Axes : 070 079 042 degrees QTc Int : 454 ms Sinus tachycardia Nonspecific ST abnormality Abnormal ECG Confirmed by ARYA HARRIS, JUAN ([id number]), videotape editor DAVIDSON HENDRICKS ([id number]) on 10/17/2019 9:01:19 AM Referred By: CHRIS Confirmed By:JUAN KOENIG MD
--- NOTE | 2019-10-15 09:36 | ED.VISSUMM ---
- ER Visit Summary Date of Service: 10/15/19 Chief Complaint: Palpitations, shortness of breath, leg swelling History of Present Illness: The patient is a 53 F who presents with the above symptoms. This is been ongoing for about a week. She feels palpitations and her heart racing. She states that she gets tachycardia when she walks around her house just going to the bathroom. She has been on and off of estrogen and progesterone supplementation after an oophorectomy. She states that she just on progesterone 1 week ago. She denies any chest pain with this. She does feel palpitations. She has a history of palpitations and is seen cardiology and electrophysiology without a diagnosis. No history of atrial fibrillation. She does have a history of anxiety. Physical Examination: Vital signs reviewed. HEENT exam unremarkable. Heart is regular rate and rhythm without murmurs. Lungs are clear to auscultation. Abdomen is soft and nontender. Extremities reveal trace symmetric edema. Peripheral pulses are equal. Skin exam normal. Neurologic exam normal. Test Results: EKG normal sinus rhythm with rate of 121. No ectopy. No ischemic changes. CTA of the chest is normal. White blood cell count 13.8, hemoglobin 16.2, hematocrit 49.1. Glucose 112. Troponin normal. TSH is 4.16 Emergency Department Course and Treatment: The patient stated that she did not want to receive IV fluids because she has lower extremity swelling. Her creatinine was normal. There is no CTA of the chest. TSH was slightly high. At this point I am not clear as to why this patient is having palpitations and all of the symptoms. The patient will need to follow-up with her PCP for further testing. At this point her heart rate is now down to 110 and will fluctuate between 105 and 120. Treatment Plan: [] Disposition: Discharge Impression: Palpitations This note was generated with VidAngelation software. It may contain incorrect words, spelling, and punctuation that were not noted in review of the chart prior to signing ED Disposition - Plan for ED Patient: Referrals: Freddy Dee MD [Primary Care Provider] -
[2019-10-15 09:41] LABS: Absolute Neutrophil Count 6.6 X10^3/uL (2.0-7.7); Basophil# 0.07 X10^3/uL; Basophil% 0.5 % (0-1); Eosinophil# 0.28 X10^3/uL; Hematocrit 49.1 % (37-47); Hemoglobin 16.2 g/dL (12.0-15.0); Mean Corpuscular Hgb 32.7 pg (27.0-32.0); Mean Platelet Vol. 9.6 fl (6.2-12.0); Monocyte# 1.38 X10^3/uL; NRBC Flagged by Analyzer 0 % (0-5); Neutrophil # 6.61 X10^3/uL (2.7-7.7); Neutrophil % 47.8 % (47-70); POSITIVE DIFFERENTIAL YES; Platelet Count 311 K/mm3 (150-450); RBC Distribution Width CV 12.5 % (11.6-14.6); RBC Distribution Width SD 44.6 fl (35.1-43.9); Red Blood Count 4.96 M/mm3 (4.2-5.4); White Blood Count 13.8 K/mm3 (4.4-11.0)
[2019-10-15 09:42] LABS: Differential Indicated SCAN CRITERIA MET
[2019-10-15 10:04] LABS: Anion Gap 6 (5-15); BUN 13 mg/dL (7-18); BUN/Creat Ratio 13.8 RATIO (10-20); Calcium,Total 9.8 mg/dL (8.5-10.1); Chloride 105 mmol/L (98-107); Creatinine, Serum 0.94 mg/dL (0.55-1.02); EST Glomerular Filtration Rate 66 mL/min (>60); Est Glom Filt Rate - Afr Amer 79 mL/min (>60); Estimated Creatinine Clearance 52.23 ml/min; Glucose 112 mg/dL (74-106); Potassium 3.6 mmol/L (3.5-5.1); Sodium Level 140 mmol/L (136-145); Thyroid Stim Hormone (TSH) 4.16 uIU/mL (0.358-3.74)
[2019-10-15 10:05] LABS: Reactive Lymphocyte 1+
[2019-10-15 10:43] VITALS: BP 159/78; PULSE 91; RESP 18; O2SAT 97
--- NOTE | 2019-10-15 10:47 | ED.DEP ---
ED Disposition - Plan for ED Patient: Disposition: Home or Assisted Living Instructions: ED Palpitations Referrals: Freddy Dee MD [Primary Care Provider] -
== END 2019-10-15 10:55 | disposition home or self-care (01) ==
PROVIDERS: Emergency Provider Emergency Medicine; PCP Family Medicine
DX: R00.2 Palpitations (principal); R00.0 Tachycardia, unspecified; M79.89 Other specified soft tissue disorders; R06.02 Shortness of breath; I10 Essential (primary) hypertension; K58.9 Irritable bowel syndrome, unspecified; Z72.0 Tobacco use; Z79.899 Other long term (current) drug therapy
CPT/HCPCS: 71275; 80048; 84443; 84484; 85025; 93005; 99285; Q9967

== ENCOUNTER 2019-10-27 16:21 | Emergency (ER) | payer MEDICAID, SELFPAY ==
[2019-10-27 16:22] VITALS: BP 153/99; PULSE 89; RESP 16; TEMP 36.4; O2SAT 95; BMI 37.8
--- NOTE | 2019-10-27 17:04 | ED.VIS.GEN ---
History of Present Illness Chief Complaint: Laceration Informant: Patient Narrative: Patient is a 53-year-old female who presents to the emergency department after cutting her left thumb with a knife. This occurred just prior to arrival in the emergency department. She states that she was cutting watermelon when the knife slipped. She said that she was having a hard time getting the bleeding controlled so she came in. Her last tetanus shot was 2 to 3 years ago. She denies any loss of sensation of the thumb. No difficulty with thumb movement. She is not on any blood thinners or aspirin. No other injury noted. Past Medical History - Allergies and Home Meds Allergies/Adverse Reactions: Allergies codeine Allergy (Verified 10/15/19 09:26) Rash hydrocodone bitartrate [From Vicodin] Allergy (Verified 10/15/19:) Rash methimazole [From Tapazole] Allergy (Verified 10/15/19:) Shortness of breath famotidine [From Pepcid] Adverse Reaction (Unknown, Verified 10/15/19:) Unknown estradiol [From CombiPatch] Adverse Reaction (Verified 10/15/19 09:26) myalgias, lip/mouth burn, SOB, nausea, dizziness methylprednisolone sodium succinate [From Solu-Medrol] Adverse Reaction (Verified 10/15/19 09:26) Other norethindrone [From CombiPatch] Adverse Reaction (Verified 10/15/19 09:26) myalgias, lip/mouth burn, SOB, nausea, dizziness oxycodone HCl [From Percocet] Adverse Reaction (Verified 10/15/19 09:26) Nausea/Vom/Diarrhea Primary Care Physician: Freddy Dee MD [Primary Care Provider] - 3-5 Days Prior records reviewed: Yes Past Medical History: - - Hypothyroidism Surgical History: cholecystectomy, - - Ectopic , tubal ligation Smoking Status: Current every day smoker Review of Systems All systems negative except as indicated General: Denies: Chills, Fever ENT: Denies: Rhinorrhea Cardiovascular: Denies: Chest pain Respiratory: Denies: Dyspnea, Cough, Dyspnea on exertion Gastrointestinal: Denies: Abdominal pain, Nausea, Vomiting, Diarrhea Musculoskeletal: Denies: Back pain, Extremity Pain Skin: Reports: Wounds - Thumb laceration. Denies: Rash Neurological: Denies: Headache, Weakness, Numbness Physical Exam Vital Signs/Narrative: Vital Signs Temp Pulse Resp BP Pulse Ox 10/27/19 16:22 97.6 F L 89 16 153/99 H 95 Inital Vital Signs reviewed: Yes General: Well nourished, Well developed, No Acute Distress Head: Normocephalic, Atraumatic Eyes: Perrl, EOMI ENT: Moist mucous membranes, No rhinorrhea Neck: Supple Cardiovascular: Regular rate, Regular rhythm, No murmurs Respiratory: No distress, CTA bilaterally, Chest nontender Abdomen: Nondistended Back: Nontender, Normal Inspection Extremities: Nontender, No edema, - - Left thumb has good capillary refill. Neurovascularly intact. Full range of motion both active and passive. Skin: Normal color, No rash, - - 1.5 cm superficial laceration to left thumb. No active bleeding. No underlying structure involvement. Neurological: Alert, Oriented x3, Normal Strength, Normal Sensation Psychological: Normal affect, Normal Mood Diagnostic/Tx/Re-eval - Medical Decision Making Patient presents to emerge department for laceration to her left thumb while cutting watermelon. She states that she did clean out the wound very well with soap and water at home. Did rinse it out with normal saline. After wound was dry I did use Dermabond to closely adhere the laceration. She is up-to-date on her tetanus and does not need this today. She is to monitor for signs of infection. She is to follow-up with her PCP. If she develops any signs of infection she is to return to the emergency department. She understands and is agreeable with this plan. ED Disposition - Plan for ED Patient: Disposition: Home or Assisted Living Diagnosis: Laceration of left thumb Instructions: ED Laceration Ext Skin Glue Referrals: Freddy Dee MD [Primary Care Provider] - 3-5 Days
== END 2019-10-27 17:45 | disposition home or self-care (01) ==
LOC: ED 17:10
PROVIDERS: Emergency Provider Emergency Medicine; PCP Family Medicine
DX: S61.012A Laceration without foreign body of left thumb without damage to nail, initial encounter (principal); W26.0XXA Contact with knife, initial encounter; Y93.89 Activity, other specified; Y92.9 Unspecified place or not applicable; Y99.9 Unspecified external cause status; E03.9 Hypothyroidism, unspecified; F17.200 Nicotine dependence, unspecified, uncomplicated; Z79.899 Other long term (current) drug therapy
CPT/HCPCS: 12001; 99282

== ENCOUNTER 2019-12-05 16:48 | Emergency (ER) | payer MEDICAID, SELFPAY ==
[2019-12-05 16:49] VITALS: BP 151/104; PULSE 108; PULSE 116; RESP 16; RESP 17; TEMP 36.3; O2SAT 95; O2SAT 98; BMI 37.4
--- NOTE | 2019-12-05 17:32 | EKG12_ITS ---
Test Reason : PALP Blood Pressure : / mmHG Vent. Rate : 103 BPM Atrial Rate : 103 BPM P-R Int : 136 ms QRS Dur : 086 ms QT Int : 366 ms P-R-T Axes : 048 072 030 degrees QTc Int : 479 ms Sinus tachycardia Nonspecific ST abnormality Abnormal ECG Confirmed by CYNTHIA CALHOUN ([id number]), fashion editor DAVIDSON HENDRICKS ([id number]) on 12/08/2019 10:26:09 AM Referred By: ASTRID Confirmed By:CYNTHIA CALHOUN
--- NOTE | 2019-12-05 17:36 | ED.VIS.GEN ---
History of Present Illness Chief Complaint: Palpitations Informant: Patient Narrative: Patient is a 53-year-old female with a history of hypothyroidism who presents to the emergency department for multiple complaints including generalized weakness, intermittent palpitations, lower leg swelling bilaterally. The symptoms have been going off and on for over a month but has been progressively getting worse. She did have outpatient lab testing performed yesterday. Her TSH was mildly elevated. She states that the last time she had her Synthroid adjusted was 2 months ago. Denies any extreme hot or cold intolerances. She denies any significant weight changes. She states she has been peeing a lot but no dysuria or hematuria. No chest pain. She does get intermittent shortness of breath. States she has had an elevated d-dimer many times before in the past and has had repeat CTAs frequently. She denies any abdominal pain. No nausea or vomiting. Has had some diarrhea. He denies any fevers or chills. No cough, cold, congestion. No headache or vision changes. No unilateral loss of strength or sensation. She was concerned because she did have some left-sided neck pain that went down into her arm. She believe that this is musculoskeletal but just wanted to make sure this was not her heart. Past Medical History - Allergies and Home Meds Allergies/Adverse Reactions: Allergies codeine Allergy (Verified 12/05/19 16:48) Rash hydrocodone bitartrate [From Vicodin] Allergy (Verified 12/05/19 16:48) Rash methimazole [From Tapazole] Allergy (Verified 12/05/19 16:48) Shortness of breath famotidine [From Pepcid] Adverse Reaction (Unknown, Verified 12/05/19 16:48) Unknown estradiol [From CombiPatch] Adverse Reaction (Verified 12/05/19 16:48) myalgias, lip/mouth burn, SOB, nausea, dizziness methylprednisolone sodium succinate [From Solu-Medrol] Adverse Reaction (Verified 12/05/19 16:48) Other norethindrone [From CombiPatch] Adverse Reaction (Verified 12/05/19 16:48) myalgias, lip/mouth burn, SOB, nausea, dizziness oxycodone HCl [From Percocet] Adverse Reaction (Verified 12/05/19 16:48) Nausea/Vom/Diarrhea Primary Care Physician: Freddy Dee MD [Primary Care Provider] - 2 Days Prior records reviewed: Yes Past Medical History: - - Hypothyroidism Surgical History: cholecystectomy, - - Ectopic , tubal ligation Smoking Status: Current every day smoker Review of Systems All systems negative except as indicated General: Denies: Chills, Fever, Sweats, Weight loss Eyes: Denies: Visual changes - bilaterally, Diplopia ENT: Denies: Rhinorrhea, Sore throat Cardiovascular: Reports: Palpitations. Denies: Chest pain Respiratory: Denies: Dyspnea, Cough, Dyspnea on exertion Gastrointestinal: Reports: Diarrhea. Denies: Abdominal pain, Nausea, Vomiting, Melena, Hematochezia Genitourinary: Reports: Frequency. Denies: Dysuria, Hematuria Musculoskeletal: Reports: Neck pain. Denies: Back pain, Extremity Pain Skin: Denies: Rash, Wounds Neurological: Reports: Weakness - Normalized. Denies: Headache, Numbness Physical Exam Vital Signs/Narrative: Vital Signs Temp Pulse Resp BP Pulse Ox 12/05/19 16:49 97.3 F L 108 H 16 151/104 H 95 Inital Vital Signs reviewed: Yes General: Well nourished, Well developed, No Acute Distress Head: Normocephalic, Atraumatic Eyes: Perrl, EOMI ENT: Moist mucous membranes, No rhinorrhea Neck: Supple, Nontender Cardiovascular: Regular rate, Regular rhythm, No murmurs Respiratory: No distress, CTA bilaterally, Chest nontender Abdomen: Soft, Nontender, Nondistended, Normal bowel sounds Back: Nontender, Normal Inspection Extremities: Nontender, Edema - Trace bilaterally. Negative for: Calf Tenderness Skin: Normal color, No rash Neurological: Alert, Oriented x3, Cranial nerves II-XII grossly intact, Normal Strength, Normal Sensation Psychological: Normal affect, Normal Mood Diagnostic/Tx/Re-eval - EKG Initial EKG Interpretation: - - Rate of 103 bpm in sinus tachycardia. Normal intervals. Normal axis. No ST elevations or depressions appreciated. No T wave abnormalities. Prior EKG for comparison was performed on October 142019 which is similar in appearance. - Medical Decision Making Patient presents to the emergency department for multiple complaints. This is been going on for some time but she just wanted to make sure that her heart. The other symptoms she is used to having. Upon arrival to the emergency department she is mildly tachycardic but otherwise satting well on room air. I did discuss getting a d-dimer but she states it is always high and she is had repeat CTAs. She does not think she has a blood clot in her legs or lungs. She believes a lot of her symptoms could be related to her hypothyroidism but just wanted to make sure that her heart was okay. Will check basic lab work here in the ED. Lab work did not reveal any significant acute abnormality here initial troponin negative. I did not repeat a d-dimer based on her history. Her TSH is 3.94 from outpatient lab testing. This was all made apparent to the patient and she does feel countable going home at this time. Will discharge home in stable condition. He is going to follow-up with her PCP for continued management. She is going to follow-up with a new data processing specialist as well. Warning signs and symptoms for which to return to the emerge department reviewed with her. She understands and is agreeable this plan. ED Disposition - Plan for ED Patient: Disposition: Home or Assisted Living Diagnosis: Generalized weakness, Palpitations Instructions: ED Palpitations, ED Weakness [facility] Referrals: Freddy Dee MD [Primary Care Provider] - 2 Days
[2019-12-05 17:53] LABS: Absolute Lymphocyte Count 2.73 X10^3/uL (0.83-4.51); Absolute Neutrophil Count 8.3 X10^3/uL (2.0-7.7); Basophil# 0.06 X10^3/uL; Basophil% 0.5 % (0-1); Eosinophil# 0.11 X10^3/uL; Eosinophils% 0.9 % (0-5); Hematocrit 47.3 % (37-47); Hemoglobin 15.9 g/dL (12.0-15.0); Lymphocyte # 2.73 X10^3/ul (4.0); Lymphocyte % 22.1 % (19-41); Mean Corp Hgb Conc 33.6 g/dL (32-36); Mean Corpuscular Hgb 32.6 pg (27.0-32.0); Mean Corpuscular Volume 96.9 fL (81-99); Mean Platelet Vol. 9.6 fl (6.2-12.0); Monocyte# 1.04 X10^3/uL; Monocyte% 8.4 % (0-10); NRBC Flagged by Analyzer 0 % (0-5); Neutrophil # 8.31 X10^3/uL (2.7-7.7); Neutrophil % 67.5 % (47-70); Platelet Count 305 K/mm3 (150-450); RBC Distribution Width CV 12.2 % (11.6-14.6); RBC Distribution Width SD 43.8 fl (35.1-43.9); Red Blood Count 4.88 M/mm3 (4.2-5.4); White Blood Count 12.3 K/mm3 (4.4-11.0)
[2019-12-05 18:07] LABS: BNP,B-Type NATRIURETIC PEPTIDE 13.6 pg/mL (0-100)
[2019-12-05 18:09] LABS: Anion Gap 4 (5-15); BUN 12 mg/dL (7-18); Chloride 108 mmol/L (98-107); Creatinine, Serum 0.92 mg/dL (0.55-1.02); EST Glomerular Filtration Rate 67 mL/min (>60); Est Glom Filt Rate - Afr Amer 81 mL/min (>60); Estimated Creatinine Clearance 55.93 ml/min; Glucose 106 mg/dL (74-106); Magnesium 2.1 mg/dL (1.6-2.6); Potassium 3.5 mmol/L (3.5-5.1); Sodium Level 140 mmol/L (136-145)
[2019-12-05 18:14] VITALS: BP 151/104; PULSE 116; RESP 17; TEMP 36.3; O2SAT 98
--- NOTE | 2019-12-05 18:23 | RAD_ITS ---
STUDY: X-RAY CHEST REASON FOR EXAM: Female, 53 years old. SOB, PALPITATIONS, RACING HEARTBEAT, LEFT ARM PAIN, SWOLLEN FEELING IN THROAT AND EDEMA IN LEGS TECHNIQUE: Single AP portable view of the chest. COMPARISON: 09/12/2019. FINDINGS: The lungs are clear and expanded. There is no demonstrated pleural abnormality. Normal size heart. Normal mediastinum and ashley. Normal visualized pulmonary arteries. Normal visualized aortic arch and descending thoracic aorta. Normal visualized thoracic spine. Normal visualized ribs, clavicles, and shoulders. There is no demonstrated abnormality of the visualized soft tissue structures of the upper abdomen. RAD/Chest 1 View (Portable) IMPRESSION: Normal x-ray examination of the chest. Electronically Signed: Nikunj Mckeon MD at 18:43 EDT , Service support ,
== END 2019-12-05 19:37 | disposition home or self-care (01) ==
PROVIDERS: Emergency Provider Emergency Medicine; PCP Family Medicine
DX: R00.2 Palpitations (principal); R53.1 Weakness; E03.9 Hypothyroidism, unspecified; Z79.899 Other long term (current) drug therapy; R19.7 Diarrhea, unspecified; M54.2 Cervicalgia; F17.200 Nicotine dependence, unspecified, uncomplicated; R00.0 Tachycardia, unspecified
CPT/HCPCS: 71045; 80048; 83735; 83880; 84484; 85025; 93005; 99284

== ENCOUNTER → 2020-01-15 22:10 | Outpatient (CLI) | payer MEDICAID, SELFPAY | PROVIDERS: PCP Family Medicine; Referring Provider Family Medicine; Visit Provider Family Medicine | DX: G47.33 Obstructive sleep apnea (adult) (pediatric) (principal); R09.02 Hypoxemia | CPT/HCPCS: 95810 ==

== ENCOUNTER 2020-01-27 16:33 | Emergency (ER) | payer MEDICAID, SELFPAY ==
[2020-01-27 16:34] VITALS: BP 143/93; PULSE 118; RESP 15; TEMP 36.3; O2SAT 98; BMI 36.8
--- NOTE | 2020-01-27 16:42 | ED.DCSUM_ITS ---
History of Present Illness Chief Complaint: Weakness Detail of Chief Complaint: Numerous symptoms Informant: Patient Onset: Weeks Context: Gradual Onset Timing: Continuous Quality: Fatigue, lack of energy, weight gain, hair loss, constipation and depressed Location: Not applicable Current Severity: Moderate Maximum Severity: Moderate Worsened by: Patient reports compliance with thyroid medicine Relieved by: Nothing Associated Symptoms: Cold intolerance Narrative: Patient is a 54-year-old woman with history of hypothyroidism who presents with numerous symptoms suggestive of hypothyroidism. She states she is on thyroid medicine. She states she is compliant. She has not had her level checked in several months. She states her T3 or T4 was not normal. She does not recall what her TSH level was. She reports malaise, weakness, fatigue and excessive sleeping. She does report slight weight gain, hair loss, cold intolerance and constipation. Prior similar symptoms: Yes Recent Illness/Hospitalization: No - Past Medical History (1) Acquired hypothyroidism Status: Chronic (2) Essential hypertension Status: Chronic (3) Menopause Status: Chronic (4) Paroxysmal SVT (supraventricular tachycardia) Status: Chronic (5) Tobacco abuse Status: Chronic (6) History of gastroesophageal reflux (GERD) Status: Acute Past Medical History - Allergies and Home Meds Allergies/Adverse Reactions: Allergies codeine Allergy (Verified 01/27/20 16:34) Rash hydrocodone bitartrate [From Vicodin] Allergy (Verified 01/27/20 16:34) Rash methimazole [From Tapazole] Allergy (Verified 01/27/20 16:34) Shortness of breath famotidine [From Pepcid] Adverse Reaction (Unknown, Verified 01/27/20 16:34) Unknown estradiol [From CombiPatch] Adverse Reaction (Verified 01/27/20 16:34) myalgias, lip/mouth burn, SOB, nausea, dizziness methylprednisolone sodium succinate [From Solu-Medrol] Adverse Reaction (Verified 01/27/20 16:34) Other norethindrone [From CombiPatch] Adverse Reaction (Verified 01/27/20 16:34) myalgias, lip/mouth burn, SOB, nausea, dizziness oxycodone HCl [From Percocet] Adverse Reaction (Verified 01/27/20 16:34) Nausea/Vom/Diarrhea Primary Care Physician: Freddy Dee MD [Primary Care Provider] - Prior records reviewed: Yes Surgical History: cholecystectomy, - - Ectopic , tubal ligation Lives: Alone - Patient is . Smoking Status: Current every day smoker Alcohol: Rare Drugs: None Review of Systems General: Reports: Malaise. Denies: Chills, Fever, Weight loss Eyes: Denies: Visual changes - bilaterally, Blurred Vision - bilaterally ENT: Denies: Bilateral ear pain, Rhinorrhea, Sore throat Cardiovascular: Denies: Chest pain, Palpitations Respiratory: Denies: Dyspnea, Cough, Dyspnea on exertion Gastrointestinal: Reports: Abdominal pain, Constipation. Denies: Nausea, Vomiting Genitourinary: Denies: Dysuria, Hematuria, Frequency Musculoskeletal: Reports: Swelling - Intermittent of lower extremities i.e. legs and feet. Denies: Myalgias, Arthralgias, Neck pain, Back pain, Extremity Pain Skin: Denies: Rash Psych: Reports: Depression. Denies: Suicidal thoughts Endocrine: Reports: Cold intolerance. Denies: Polyuria, Polydipsia Hematologic: Denies: Easy bruising, Easy bleeding Physical Exam Vital Signs/Narrative: Vital Signs Temp Pulse Resp BP Pulse Ox 01/27/20 16:34 97.3 F L 118 H 15 143/93 H 98 General: Well nourished, Well developed, Obese, No Acute Distress Head: Normocephalic, Atraumatic Eyes: Perrl, EOMI. Negative for: Pale conjunctiva, Scleral icterus ENT: Moist mucous membranes, No rhinorrhea Neck: Supple, Nontender, No lymphadenopathy, No JVD Cardiovascular: Regular rate, Regular rhythm, No murmurs, Normal S1, Normal S2 Respiratory: No distress, CTA bilaterally, Chest nontender Abdomen: Soft, Nontender, Nondistended, Normal bowel sounds Back: Nontender, Normal Inspection Extremities: Nontender, No edema Skin: Normal color, No rash, No Trauma. Negative for: Cyanosis, Diaphoresis, Jaundice Neurological: Alert, Oriented x3, Cranial nerves II-XII grossly intact, Normal Strength, Normal Sensation, Normal DTR - DTR 1-2+. Possible delay in the relaxation phase of ankle reflex. 3 beats of clonus bilaterally., Normal Gait Psychological: Depressed, - - Affect is flat Diagnostic/Tx/Re-eval Laboratory Results 01/27/20 01/27/20 16:50 16:50 WBC 11.1 H RBC 4.96 Hgb 15.7 H Hct 48.5 H MCV 97.8 MCH 31.7 MCHC 32.4 RDW Std Deviation 43.8 RDW Coeff of Linette 12.1 Plt Count 284 MPV 9.7 Immature Gran % (Auto) 0.500 Neut % (Auto) 50.7 Lymph % (Auto) 38.7 [place] % (Auto) 8.0 Eos % (Auto) 1.6 Baso % (Auto) 0.5 Absolute Neuts (auto) 5.6 Absolute Lymphs (auto) 4.29 Nucleated RBC % 0 Sodium 140 Potassium 3.9 Chloride 110 H Carbon Dioxide 25.0 Anion Gap 5 BUN 12 Creatinine 0.99 Estim Creat Clear Calc 51.38 Est GFR (MDRD) Af Amer 75 Est GFR (MDRD) Non-Af 62 BUN/Creatinine Ratio 12.1 Glucose 124 H Calcium 8.9 Total Bilirubin 0.40 AST 29 ALT 50 Alkaline Phosphatase 75 Total Protein 7.8 Albumin 3.7 Globulin 4.1 Albumin/Globulin Ratio 0.9 TSH 0.61 Free T4 1.27 Free T3 pg/dL 3.0 Informed that her laboratory tests are unremarkable. She was informed this may be due to depression. She was instructed to follow-up with her primary care doctor. - Medical Decision Making Patient's constellation of symptoms is consistent with hypothyroidism. Will assess CBC to assess white count and H&H. Electrolyte panel to assess renal function as well as electrolytes. TSH, T3 and T4 were obtained since patient symptoms are consistent with hypothyroidism and she reports that either her TSH 3 or T4 level was abnormal last time it was checked several months ago. ED Disposition - Plan for ED Patient: Disposition: Home or Assisted Living Diagnosis: Depression, Malaise and fatigue, Hair loss Instructions: ED Depression, ED Weakness [facility] Referrals: Freddy Dee MD [Primary Care Provider] - 3-5 Days
[2020-01-27 16:58] LABS: Absolute Lymphocyte Count 4.29 X10^3/uL (0.83-4.51); Absolute Neutrophil Count 5.6 X10^3/uL (2.0-7.7); Basophil# 0.06 X10^3/uL; Basophil% 0.5 % (0-1); Eosinophil# 0.18 X10^3/uL; Eosinophils% 1.6 % (0-5); Hematocrit 48.5 % (37-47); Hemoglobin 15.7 g/dL (12.0-15.0); Lymphocyte # 4.29 X10^3/ul (4.0); Lymphocyte % 38.7 % (19-41); Mean Corp Hgb Conc 32.4 g/dL (32-36); Mean Corpuscular Hgb 31.7 pg (27.0-32.0); Mean Corpuscular Volume 97.8 fL (81-99); Mean Platelet Vol. 9.7 fl (6.2-12.0); Monocyte# 0.89 X10^3/uL; NRBC Flagged by Analyzer 0 % (0-5); Neutrophil # 5.61 X10^3/uL (2.7-7.7); Neutrophil % 50.7 % (47-70); Platelet Count 284 K/mm3 (150-450); RBC Distribution Width CV 12.1 % (11.6-14.6); RBC Distribution Width SD 43.8 fl (35.1-43.9); Red Blood Count 4.96 M/mm3 (4.2-5.4); White Blood Count 11.1 K/mm3 (4.4-11.0)
[2020-01-27 17:30] LABS: ALB/GLOB Ratio 0.9 RATIO (0.9-2.4); AST(SGOT) 29 U/L (15-37); Alanine Aminotransfer ALT/SGPT 50 U/L (13-56); Albumin, Serum 3.7 g/dL (3.2-5.0); Alkaline Phosphatase 75 U/L (45-117); Anion Gap 5 (5-15); BUN 12 mg/dL (7-18); BUN/Creat Ratio 12.1 RATIO (10-20); Calcium,Total 8.9 mg/dL (8.5-10.1); Chloride 110 mmol/L (98-107); Creatinine, Serum 0.99 mg/dL (0.55-1.02); EST Glomerular Filtration Rate 62 mL/min (>60); Est Glom Filt Rate - Afr Amer 75 mL/min (>60); Estimated Creatinine Clearance 51.38 ml/min; Globulin 4.1 g/dL (2.2-4.2); Glucose 124 mg/dL (74-106); Potassium 3.9 mmol/L (3.5-5.1); Protein, Total 7.8 g/dL (6.4-8.2); Sodium Level 140 mmol/L (136-145); T4 Free Direct 1.27 ng/dL (0.76-1.46); Thyroid Stim Hormone (TSH) 0.61 uIU/mL (0.358-3.74)
== END 2020-01-27 17:44 | disposition home or self-care (01) ==
PROVIDERS: Emergency Provider Emergency Medicine; PCP Family Medicine
DX: F32.9 Major depressive disorder, single episode, unspecified (principal); R53.83 Other fatigue; L65.9 Nonscarring hair loss, unspecified; I10 Essential (primary) hypertension; E03.9 Hypothyroidism, unspecified; K21.9 Gastro-esophageal reflux disease without esophagitis; E66.9 Obesity, unspecified; F17.200 Nicotine dependence, unspecified, uncomplicated; Z78.0 Asymptomatic menopausal state; Z90.49 Acquired absence of other specified parts of digestive tract
CPT/HCPCS: 80053; 84439; 84443; 84481; 85025; 99283; A4216

== ENCOUNTER 2020-02-03 23:09 | Emergency (ER) | payer MEDICAID, SELFPAY ==
[2020-02-03 23:09] VITALS: BP 170/104; PULSE 118; RESP 18; TEMP 36.5; O2SAT 97
[2020-02-03 23:10] VITALS: BP 170/104; PULSE 118; RESP 18; TEMP 36.5; O2SAT 97; BMI 38.5
--- NOTE | 2020-02-03 23:29 | EKG12_ITS ---
Test Reason : PALP Blood Pressure : / mmHG Vent. Rate : 118 BPM Atrial Rate : 118 BPM P-R Int : 142 ms QRS Dur : 086 ms QT Int : 338 ms P-R-T Axes : 053 085 027 degrees QTc Int : 473 ms Sinus tachycardia Nonspecific ST abnormality Abnormal ECG Confirmed by YEN HARRIS, WILBERT ([id number]), news editor BERNA DEL TORO ([id number]) on 02/08/2020 6:50:40 AM Referred By: JOHN Confirmed By:WILBERT BARLOW MD
--- NOTE | 2020-02-03 23:29 | RAD_ITS ---
STUDY: X-RAY CHEST REASON FOR EXAM: Female, 54 years old. Palpitations. TECHNIQUE: Single AP portable view of the chest. COMPARISON: December 05, 2019 chest x-ray FINDINGS: The lungs are clear and expanded. There is no demonstrated pleural abnormality. Normal size heart. Normal mediastinum and ashley. Normal visualized pulmonary arteries. Normal visualized aortic arch and descending thoracic aorta. There are diffuse degenerative changes of the visualized thoracic spine. Normal visualized ribs, clavicles, and shoulders. There is no demonstrated abnormality of the visualized soft tissue structures of the upper abdomen. RAD/Chest 1 View (Portable) IMPRESSION: Degenerative changes, as described above. No demonstrated acute cardiopulmonary process. Electronically Signed: Jackelyn Stewart MD at 1:03 EDT Tel , Service support ,
[2020-02-03] MEDS: 0.9% Normal Saline 1,000 ML 1000 ML IV (23:44)
[2020-02-03 23:45] LABS: Absolute Lymphocyte Count 6.15 X10^3/uL (0.83-4.51); Absolute Neutrophil Count 7.1 X10^3/uL (2.0-7.7); Basophil# 0.08 X10^3/uL; Basophil% 0.5 % (0-1); Hematocrit 47.3 % (37-47); Lymphocyte # 6.15 X10^3/ul (4.0); Lymphocyte % 41.2 % (19-41); Mean Corp Hgb Conc 33.8 g/dL (32-36); Mean Corpuscular Hgb 32.9 pg (27.0-32.0); Mean Corpuscular Volume 97.1 fL (81-99); Mean Platelet Vol. 10.4 fl (6.2-12.0); Monocyte# 1.23 X10^3/uL; Monocyte% 8.2 % (0-10); NRBC Flagged by Analyzer 0 % (0-5); Neutrophil # 7.07 X10^3/uL (2.7-7.7); Neutrophil % 47.6 % (47-70); POSITIVE DIFFERENTIAL YES; Platelet Count 304 K/mm3 (150-450); RBC Distribution Width CV 12.1 % (11.6-14.6); RBC Distribution Width SD 43.3 fl (35.1-43.9); Red Blood Count 4.87 M/mm3 (4.2-5.4); White Blood Count 14.9 K/mm3 (4.4-11.0)
[2020-02-03 23:46] LABS: Bacteria 0 SEEN /hpf (None Seen); Mucous, Urine 0 SEEN /hpf (<or=2+); Squamous Epithelial Cells - UA 0 SEEN /hpf (5-10); White Blood Cells 0 SEEN /hpf (0-5)
[2020-02-03 23:50] LABS: Differential Indicated SCAN CRITERIA MET
[2020-02-03 23:57] LABS: Glucose, Dipstick Normal (Normal); Ketone-Dipstick Negative (Negative); Leukocyte Esterase-Dipstick Negative /ul (Negative); Nitrite-Dipstick Negative (Negative); Occult Blood-Urine 50 /ul (Negative); Protein-Dipstick Negative (Negative); Urine Bilirubin Dipstick Negative (Negative); Urine Clarity Sl. Cloudy (Clear); Urine Urobilinogen Normal (Normal)
[2020-02-04] LABS: AST(SGOT) 21 U/L (15-37); Alanine Aminotransfer ALT/SGPT 44 U/L (13-56); Albumin, Serum 3.9 g/dL (3.2-5.0); Alkaline Phosphatase 85 U/L (45-117); Anion Gap 7 (5-15); BUN 13 mg/dL (7-18); BUN/Creat Ratio 12.3 RATIO (10-20); Calcium,Total 9.1 mg/dL (8.5-10.1); Chloride 107 mmol/L (98-107); Creatinine, Serum 1.06 mg/dL (0.55-1.02); EST Glomerular Filtration Rate 57 mL/min (>60); Est Glom Filt Rate - Afr Amer 69 mL/min (>60); Estimated Creatinine Clearance 45.78 ml/min; Globulin 3.9 g/dL (2.2-4.2); Glucose 139 mg/dL (74-106); Potassium 3.4 mmol/L (3.5-5.1); Protein, Total 7.8 g/dL (6.4-8.2); Sodium Level 139 mmol/L (136-145); Thyroid Stim Hormone (TSH) 3.89 uIU/mL (0.358-3.74)
[2020-02-04 00:07] LABS: Color, Urine Yellow (Yellow)
[2020-02-04 00:12] LABS: Red Blood Cells-Urine 0-5 SEEN /hpf (0-5)
--- NOTE | 2020-02-04 00:23 | ED.DCSUM_ITS ---
- ER Visit Summary Date of Service: 02/04/20 Chief Complaint: Palpitations, fatigue History of Present Illness: The patient is a [address] Dee. She reports that she has had palpitations intermittently for approximately 1 week. States that this episode is less approximately 45 minutes. Typically this lasts 5 to 30 minutes. States that she had a 30-day monitor and was found to have intermittent SVT. She denies any chest pain. She reports that she does feel short of breath when her heart is racing. She denies any shortness of breath otherwise. Patient reports that she is had fatigue for approximately 3 weeks. She denies any fever. She has had chills. She denies cough. No known sick exposures. She has no known cold exposure. She does wear a mask. Patient reports he has suprapubic abdominal pain is been on and off for approximately 1 week. To do burning pain Zeta 10 at worst and 4-10 currently. Nothing makes this better or worse. She is had nausea without vomiting. No diarrhea. Her last bowel was today. No hematochezia. No dysuria or frequency. She does complain of generalized weakness as well. Physical Examination: Vitals: 97.7, 170/104, 118, 18, 97% on June is not hypoxic. General: Well-nourished and well-developed. Head: Normocephalic atraumatic. Neck: Supple, no lymphadenopathy. No JVD. Nontender. Cardiovascular: Regular rate and rhythm. No murmurs. Respiratory: No respiratory distress. Clear to auscultation bilaterally. Abdominal: Soft, nontender, nondistended, normal bowel sounds. No guarding, rebound, or peritoneal signs. Back: Nontender. Extremities: Nontender, no edema. Skin: Normal color, no rash. Neurologic: Alert and oriented ?3. Cranial nerves II through XII are intact. Normal strength and sensation. Psych: Normal affect. Test Results: EKG is sinus tach at [address] changes. Is unchanged from 2 months ago. CBC shows a white count of 14.9 with a hemoglobin of 16.0, hematocrit of 47.3, lymphocytes 41. Chem-7 shows a potassium of 3.4, creatinine 1.06, glucose 139. LFTs are normal. UA is normal. Troponin is negative. TSH is 3.89. D-dimer is elevated at 2.31. However when reviewing patient's chart is been elevated from 2013. It ranges between 1.54?2.35. Pat ient refused a CT of the chest. Clinical Impression(s) from Imaging Studies Chest X-Ray 02/03/20 23:29 IMPRESSION: Degenerative changes, as described above. No demonstrated acute cardiopulmonary process. Electronically Signed: Jackelyn Stewart MD at 1:03 EDT Tel , Service support , Abdomen/Pelvis CT 02/04/20 00:59 IMPRESSION: Mild to moderate constipation. Nonspecific decompressed appearance of the distal descending colon and sigmoid similar to the prior study which may represent a prior history of colitis or inflammatory bowel disease without evidence of current edema or inflammation. Stable fatty umbilical hernia. Stable appearing bilateral kidneys with minimal pelviectasis. Status post cholecystectomy. No evidence of appendicitis. Degenerative change of the thoracolumbar spine. Electronically Signed: Jackelyn Stewart MD at 1:58 EDT Tel , Service support , Emergency Department Course and Treatment: Patient had an IV placed. She was given a liter of normal saline. She refused pain or nausea medications. She is resting more comfortably. Her heart rate is currently in the 80s. Treatment Plan: I had a prolonged discussion the patient about her symptoms. We discussed the possibility of pheochromocytoma. She reports that she is had a 24-hour urine collection with an applications system analyst at [facility] that was abnormal. However, they want her to wait 6 months to return. She is asking for referral to a new applications system analyst. She is given the name of Dr. Ballard to follow- up with here in [facility]. She will be sent home with magnesium citrate. Follow-up with her primary care physician 1 to 2 days if not improving. Return to the emergency department for any worsening symptoms. Disposition: To home in improved and stable condition. Impression: 1. Sinus tachycardia. 2. Chronically elevated d-dimer. 3. Constipation. This note was generated with CytRxation software. It may contain incorrect words, spelling, and punctuation that were not noted in review of the chart prior to signing ED Disposition - Plan for ED Patient: Instructions: ED Palpitations Prescriptions: Magnesium Citrate [Citrate Of Magnesia] 300 ml PO X1 #1 bottle Referrals: Freddy Dee MD [Primary Care Provider] - 1-2 Days if not improving Daniel Ballard MD [STAFF PHYSICIAN] - As soon as possible
[2020-02-04 00:33] LABS: D-Dimer Quantitative (DVT/PE) 2.31 FEU/ug/m (0.27-0.49)
[2020-02-04 00:57] VITALS: PULSE 91; RESP 16; O2SAT 95
--- NOTE | 2020-02-04 00:59 | CT_ITS ---
STUDY: CT ABDOMEN AND PELVIS WITHOUT CONTRAST REASON FOR EXAM: Female, 54 years old. HEART RACING, SOB, PALPATIONS X 1 WEEK, HX SVT, UMBILICAL PAIN RADIATES DOWNWARD THAT IS SHARP, HX GB, OOPHRECTOMY RADIATION DOSAGE (If Supplied By Facility): CTDIvol = ( 17.77 ) mGy, DLP = ( 838.87 ) mGycm TECHNIQUE: Transaxial images were obtained from the dome of the diaphragm to the symphysis pubis without oral contrast, and without intravenous contrast. Sagittal and coronal images were reconstructed. Individualized dose optimization techniques were used for this CT. COMPARISON: CT abdomen and pelvis March 31, 2019 FINDINGS: The visualized lung bases are unremarkable. The visualized portions of the heart are within normal limits. Normal liver. There is non-visualization of the gallbladder, which may be secondary to either contraction or a prior cholecystectomy. Normal spleen. Normal pancreas. Normal bilateral adrenal glands. There is minimal right pelviectasis stable when compared to prior study. There is stable minimal left pelviectasis. Stomach is mostly decompressed. Normal small intestine. There is mild to moderate stool within the proximal colon. There is a decompress somewhat featureless appearance of the descending colon. The appendix is visualized and appears normal. There is diffuse atherosclerotic calcification of the abdominal aorta, without a demonstrated aneurysm. Normal inferior vena cava. Normal retroperitoneum. Normal urinary bladder. Normal visualized uterus. There is a stable umbilical hernia containing fat. There is evidence of a prior right side inferior pubic ramus fracture. There is multilevel degenerative change within the lumbar spine. There is multilevel disc space narrowing spondylosis. There is a broad disc bulge L2-3 L4-L5 and L5-S1 with moderate neural foramina narrowing. There is mild central stenosis. CT/Abdomen/Pelvis without Cont IMPRESSION: Mild to moderate constipation. Nonspecific decompressed appearance of the distal descending colon and sigmoid similar to the prior study which may represent a prior history of colitis or inflammatory bowel disease without evidence of current edema or inflammation. Stable fatty umbilical hernia. Stable appearing bilateral kidneys with minimal pelviectasis. Status post cholecystectomy. No evidence of appendicitis. Degenerative change of the thoracolumbar spine. Electronically Signed: Jackelyn Stewart MD at 1:58 EDT Tel , Service support ,
[2020-02-04 01:00] LABS: Reactive Lymphocyte 1+
[2020-02-04 02:00] VITALS: BP 155/60; PULSE 81; RESP 16; O2SAT 97
[2020-02-04 02:22] VITALS: PULSE 81; RESP 16; O2SAT 98
== END 2020-02-04 02:23 | disposition home or self-care (01) ==
LOC: ED 23:34
PROVIDERS: Emergency Provider Emergency Medicine; PCP Family Medicine
DX: R00.0 Tachycardia, unspecified (principal); R79.89 Other specified abnormal findings of blood chemistry; K59.00 Constipation, unspecified; R06.02 Shortness of breath; R53.83 Other fatigue; R11.0 Nausea; R53.1 Weakness; Z72.0 Tobacco use; Z79.899 Other long term (current) drug therapy
CPT/HCPCS: 71045; 74176; 80053; 81001; 84443; 84484; 85025; 85379; 93005; 96360; 96361; 99284; J7030; A4216

== ENCOUNTER 2020-04-15 15:54 | Emergency (ER) | payer MEDICAID, SELFPAY ==
[2020-04-15 15:55] VITALS: BP 130/107; PULSE 123; RESP 16; TEMP 36.7; O2SAT 97; BMI 37.8
--- NOTE | 2020-04-15 16:32 | CT_ITS ---
STUDY: CT ABDOMEN AND PELVIS WITH CONTRAST REASON FOR EXAM: Female, 54 years old. Upper quadrant pain x2 days, cough and dizziness RADIATION DOSAGE (If Supplied By Facility): CTDIvol = ( 15.94 ) mGy, DLP = ( 1061.17 ) mGycm TECHNIQUE: Transaxial images were obtained from the dome of the diaphragm to the symphysis pubis without oral contrast. IV 100mL Isovue-300 was administered. Sagittal and coronal images were reconstructed. Individualized dose optimization techniques were used for this CT. COMPARISON: 02/04/2020 FINDINGS: The visualized lung bases are unremarkable. The visualized portions of the heart are within normal limits. There is decreased attenuation of the liver consistent with steatosis. There is non-visualization of the gallbladder, which may be secondary to either contraction or a prior cholecystectomy. Normal spleen. Normal pancreas. Normal bilateral adrenal glands. Normal right kidney. Normal left kidney. Normal visualized stomach. Normal small intestine. Normal colon. The appendix is visualized and appears normal. Appendix best seen on coronal oblique MR images 57 through 66 Normal abdominal aorta. Normal inferior vena cava. Normal retroperitoneum. Normal urinary bladder. Normal-appearing uterus, no suspicious adnexal mass or free fluid There is a small umbilical hernia containing fat. There are diffuse degenerative changes of the visualized lumbar spine. CT/Abdomen/Pelvis W IV Cont ONLY IMPRESSION: Fatty liver, no discrete lesion No CT evidence of an acute inflammatory process, normal appendix visualized No free intraperitoneal fluid, air, or suspicious adenopathy Stable fat-containing inguinal hernia Electronically Signed: Cristofer Jacinto MD at 18:46 EST , Service support ,
--- NOTE | 2020-04-15 16:34 | ED.DCSUM_ITS ---
History of Present Illness Chief Complaint: Abd Pain Informant: Patient Onset: Days Context: Gradual Onset Timing: Continuous Current Severity: Moderate Maximum Severity: Moderate Narrative: The patient is a 54-year-old female with medical history significant for thyroid disease who presents to the emergency department with complaints. Patient states that there is someone in her home that is Covid positive, but she has had 2 - test. For the past 3 days, she is had pain in her left flank that wraps around to her anterior abdomen. She denies any definitive fever, but has had chills. She states that she is been nauseated this had a few bouts of vomiting and some loose watery diarrhea. She denies chest pain or shortness of breath. She states she has had lack of appetite but denies any change in taste or smell. Prior similar symptoms: Yes Recent Illness/Hospitalization: No Past Medical History - Allergies and Home Meds Allergies/Adverse Reactions: Allergies codeine Allergy (Verified 01/27/20 16:34) Rash hydrocodone bitartrate [From Vicodin] Allergy (Verified 01/27/20 16:34) Rash methimazole [From Tapazole] Allergy (Verified 01/27/20 16:34) Shortness of breath famotidine [From Pepcid] Adverse Reaction (Unknown, Verified 01/27/20 16:34) Unknown estradiol [From CombiPatch] Adverse Reaction (Verified 01/27/20 16:34) myalgias, lip/mouth burn, SOB, nausea, dizziness methylprednisolone sodium succinate [From Solu-Medrol] Adverse Reaction (Verified 01/27/20 16:34) Other norethindrone [From CombiPatch] Adverse Reaction (Verified 01/27/20 16:34) myalgias, lip/mouth burn, SOB, nausea, dizziness oxycodone HCl [From Percocet] Adverse Reaction (Verified 01/27/20 16:34) Nausea/Vom/Diarrhea Primary Care Physician: Freddy Dee MD [Primary Care Provider] - Prior records reviewed: Yes Past Medical History: - - Thyroid disease, hypertension Surgical History: cholecystectomy, - - Ectopic , tubal ligation Smoking Status: Current every day smoker Review of Systems General: Denies: Chills, Fever, Sweats Eyes: Denies: Visual changes - bilaterally, Diplopia ENT: Denies: Rhinorrhea, Sore throat Cardiovascular: Denies: Chest pain, Palpitations Respiratory: Denies: Dyspnea, Cough, Dyspnea on exertion Gastrointestinal: Reports: Nausea, Vomiting. Denies: Abdominal pain, Diarrhea, Melena, Hematochezia Genitourinary: Denies: Dysuria, Hematuria, Frequency Musculoskeletal: Reports: Back pain. Denies: Extremity Pain Skin: Denies: Rash, Wounds Neurological: Denies: Headache, Weakness, Numbness Physical Exam Vital Signs/Narrative: Vital Signs Temp Pulse Resp BP Pulse Ox 04/15/20 15:55 98.1 F 123 H 16 130/107 H 97 Inital Vital Signs reviewed: Yes General: Well nourished, Well developed, No Acute Distress Head: Normocephalic, Atraumatic Eyes: Perrl, EOMI ENT: Moist mucous membranes, No rhinorrhea Neck: Supple, Nontender Cardiovascular: Regular rate, Regular rhythm, No murmurs Respiratory: No distress, CTA bilaterally, Chest nontender Abdomen: Soft, Nontender, Nondistended, Normal bowel sounds Back: Nontender, Normal Inspection Extremities: Nontender, No edema Skin: Normal color, No rash Neurological: Alert, Oriented x3, Cranial nerves II-XII grossly intact, Normal Strength, Normal Sensation Psychological: Normal affect, Normal Mood Diagnostic/Tx/Re-eval Clinical Impression(s) from Imaging Studies Abdomen/Pelvis CT 04/15/20 16:32 IMPRESSION: Fatty liver, no discrete lesion No CT evidence of an acute inflammatory process, normal appendix visualized No free intraperitoneal fluid, air, or suspicious adenopathy Stable fat-containing inguinal hernia Electronically Signed: Cristofer Jacinto MD at 18:46 EST , Service support , Abnormal Lab Results 04/15/20 04/15/20 04/15/20 16:50 16:50 16:52 WBC 14.3 H RBC 4.88 Hgb 15.2 H Hct 47.1 H MCV 96.5 MCH 31.1 MCHC 32.3 RDW Std Deviation 45.5 H RDW Coeff of Linette 12.7 Plt Count 326 MPV 9.8 Immature Gran % (Auto) 0.800 Neut % (Auto) 72.1 H Lymph % (Auto) 19.2 Kleberg % (Auto) 6.9 Eos % (Auto) 0.5 Baso % (Auto) 0.5 Absolute Neuts (auto) 10.3 H Absolute Lymphs (auto) 2.76 Nucleated RBC % 0 Sodium 141 Potassium 3.7 Chloride 111 H Carbon Dioxide 25.0 Anion Gap 5 BUN 7 Creatinine 0.81 Estim Creat Clear Calc 59.91 Est GFR (MDRD) Af Amer 95 Est GFR (MDRD) Non-Af 78 BUN/Creatinine Ratio 8.7 L Glucose 117 H Calcium 9.1 Total Bilirubin 0.50 AST 23 ALT 47 Alkaline Phosphatase 74 Total Protein 8.1 Albumin 4.0 Globulin 4.1 Albumin/Globulin Ratio 1.0 Lipase 111 TSH 0.93 Urine Color Yellow Urine Clarity Clear Urine pH 6.0 Ur Specific Sherwood 1.005 Urine Protein Negative Urine Glucose (UA) Normal Urine Ketones Negative Urine Occult Blood 50 H Urine Nitrite Negative Urine Bilirubin Negative Urine Urobilinogen Normal Ur Leukocyte Esterase Negative Urine RBC 0 SEEN Urine WBC 0 SEEN Ur Squamous Epith Cells 0 SEEN Urine Bacteria 0 SEEN Urine Mucus 0 SEEN - Medical Decision Making Patient presents with left flank pain into her left upper quadrant associated with spasm, cramping, and diarrhea. Metabolic work-up was pursued. Labs were obtained. She has a mild leukocytosis, but otherwise labs are unremarkable. She states she did not want to be Covid tested again as she has had 2 negatives within the past month. Patient underwent CT imaging of abdomen and pelvis. This shows no acute intra-abdominal process. Urine is not infected. I am unsure of the acute etiology of her pain. Her skin shows no rash or lesions, her lab work is relatively unremarkable, and her CT does not show any definitive abnormalities. At this point, I am going to treat the patient symptomatically with Bentyl. She is comfortable with this plan of care. She was counseled on concerning symptoms and reasons to return. She will be discharged home. Impression 1. Diarrhea 2. Abdominal cramping ED Disposition - Plan for ED Patient: Disposition: Home or Assisted Living Instructions: ED Abdominal Pain Unkn Cause Fem Prescriptions: Dicyclomine HCl [Bentyl] 20 mg PO TIDAC #20 cap Prescription Printed Referrals: Freddy Dee MD [Primary Care Provider] -
[2020-04-15] MEDS: 0.9% Normal Saline 1,000 ML 1000 ML IV (16:47)
[2020-04-15 17:01] VITALS: BP 166/94; PULSE 125; RESP 18; TEMP 36.7; O2SAT 96
[2020-04-15 17:07] LABS: Absolute Lymphocyte Count 2.76 X10^3/uL (0.83-4.51); Absolute Neutrophil Count 10.3 X10^3/uL (2.0-7.7); Basophil# 0.07 X10^3/uL; Basophil% 0.5 % (0-1); Eosinophil# 0.07 X10^3/uL; Eosinophils% 0.5 % (0-5); Hematocrit 47.1 % (37-47); Hemoglobin 15.2 g/dL (12.0-15.0); Lymphocyte # 2.76 X10^3/ul (4.0); Lymphocyte % 19.2 % (19-41); Mean Corp Hgb Conc 32.3 g/dL (32-36); Mean Corpuscular Hgb 31.1 pg (27.0-32.0); Mean Corpuscular Volume 96.5 fL (81-99); Mean Platelet Vol. 9.8 fl (6.2-12.0); Monocyte# 0.99 X10^3/uL; Monocyte% 6.9 % (0-10); NRBC Flagged by Analyzer 0 % (0-5); Neutrophil # 10.33 X10^3/uL (2.7-7.7); Neutrophil % 72.1 % (47-70); Platelet Count 326 K/mm3 (150-450); RBC Distribution Width CV 12.7 % (11.6-14.6); RBC Distribution Width SD 45.5 fl (35.1-43.9); Red Blood Count 4.88 M/mm3 (4.2-5.4); White Blood Count 14.3 K/mm3 (4.4-11.0)
[2020-04-15 17:12] LABS: Bacteria 0 SEEN /hpf (None Seen); Mucous, Urine 0 SEEN /hpf (<or=2+); Red Blood Cells-Urine 0 SEEN /hpf (0-5); Squamous Epithelial Cells - UA 0 SEEN /hpf (5-10); White Blood Cells 0 SEEN /hpf (0-5)
[2020-04-15 17:28] LABS: Color, Urine Yellow (Yellow); Glucose, Dipstick Normal (Normal); Ketone-Dipstick Negative (Negative); Leukocyte Esterase-Dipstick Negative /ul (Negative); Nitrite-Dipstick Negative (Negative); Occult Blood-Urine 50 /ul (Negative); Protein-Dipstick Negative (Negative); Specific Gravity, Urine 1.005 (1.002-1.030); Urine Bilirubin Dipstick Negative (Negative); Urine Clarity Clear (Clear); Urine Urobilinogen Normal (Normal)
[2020-04-15 17:49] LABS: AST(SGOT) 23 U/L (15-37); Alanine Aminotransfer ALT/SGPT 47 U/L (13-56); Alkaline Phosphatase 74 U/L (45-117); Anion Gap 5 (5-15); BUN 7 mg/dL (7-18); BUN/Creat Ratio 8.7 RATIO (10-20); Calcium,Total 9.1 mg/dL (8.5-10.1); Chloride 111 mmol/L (98-107); Creatinine, Serum 0.81 mg/dL (0.55-1.02); EST Glomerular Filtration Rate 78 mL/min (>60); Est Glom Filt Rate - Afr Amer 95 mL/min (>60); Estimated Creatinine Clearance 59.91 ml/min; Globulin 4.1 g/dL (2.2-4.2); Glucose 117 mg/dL (74-106); Lipase 111 U/L (73-393); Potassium 3.7 mmol/L (3.5-5.1); Protein, Total 8.1 g/dL (6.4-8.2); Sodium Level 141 mmol/L (136-145); Thyroid Stim Hormone (TSH) 0.93 uIU/mL (0.358-3.74)
[2020-04-15 19:00] VITALS: BP 149/90; PULSE 101; RESP 12; TEMP 36.7; O2SAT 95
--- NOTE | 2020-04-15 19:19 | ED.RN ---
refused desirae. disposed of in room d/t potential COVID.
== END 2020-04-15 19:20 | disposition home or self-care (01) ==
LOC: ED 16:57
PROVIDERS: Emergency Provider Emergency Medicine; PCP Family Medicine
DX: R10.9 Unspecified abdominal pain (principal); R11.2 Nausea with vomiting, unspecified; R19.7 Diarrhea, unspecified; Z20.828 Contact with and (suspected) exposure to other viral communicable diseases; I10 Essential (primary) hypertension; E07.9 Disorder of thyroid, unspecified; M54.9 Dorsalgia, unspecified; F17.200 Nicotine dependence, unspecified, uncomplicated; Z79.899 Other long term (current) drug therapy
CPT/HCPCS: 74177; 80053; 81001; 83690; 84443; 85025; 96360; 96361; 99283; J7030; Q9967; A4216; J2405

== ENCOUNTER 2020-05-13 17:07 | Emergency (ER) | payer MEDICAID, SELFPAY ==
[2020-05-13 17:08] VITALS: BP 109/68; PULSE 119; RESP 20; TEMP 36.4; O2SAT 97; BMI 38.5
--- NOTE | 2020-05-13 18:04 | ED.DCSUM_ITS ---
History of Present Illness Chief Complaint: Palpitations Informant: Patient Narrative: Patient is a 54-year-old female with a past medical history of hypothyroidism who presents to the emergency department for palpitations. She states that it feels like her heart is skipping beats over the past 3 days. She has had this symptom many times before in the past. She has been worked up with a professor of theatre, broadband engineer, they have never gave her an answer to why she feels this way. She has been seen in the emergency department. She comes in just to make sure everything is okay with her heart. She does get short of breath after exerting herself. She denies any chest pain. No history of DVT/PE. She denies any unilateral leg swelling or calf pain. She denies smoking history. Upon arrival to the emergency department she is feeling better. She states that she wakes up with her hands feeling numb. She thought that anxiety could be playing a role so she has been taking some Benadryl to see if this would help but it has not. She denies any recent illness including any nausea/vomiting or diarrhea. No urinary symptoms. No cough. No fevers or chills. Past Medical History - Allergies and Home Meds Allergies/Adverse Reactions: Allergies codeine Allergy (Verified 05/13/20 17:09) Rash hydrocodone bitartrate [From Vicodin] Allergy (Verified 05/13/20 17:09) Rash methimazole [From Tapazole] Allergy (Verified 05/13/20 17:09) Shortness of breath famotidine [From Pepcid] Adverse Reaction (Unknown, Verified 05/13/20 17:09) Unknown estradiol [From CombiPatch] Adverse Reaction (Verified 05/13/20 17:09) myalgias, lip/mouth burn, SOB, nausea, dizziness methylprednisolone sodium succinate [From Solu-Medrol] Adverse Reaction (Verified 05/13/20 17:09) Other norethindrone [From CombiPatch] Adverse Reaction (Verified 05/13/20 17:09) myalgias, lip/mouth burn, SOB, nausea, dizziness oxycodone HCl [From Percocet] Adverse Reaction (Verified 05/13/20 17:09) Nausea/Vom/Diarrhea Primary Care Physician: Freddy Dee MD [Primary Care Provider] - 3-5 Days Prior records reviewed: Yes Past Medical History: - - Hypothyroidism, hypertension Surgical History: cholecystectomy, - - Ectopic , tubal ligation Smoking Status: Current every day smoker Review of Systems All systems negative except as indicated General: Denies: Chills, Fever, Sweats Eyes: Denies: Visual changes - bilaterally, Diplopia ENT: Denies: Rhinorrhea, Sore throat Cardiovascular: Reports: Palpitations, Heart racing. Denies: Chest pain Respiratory: Reports: Dyspnea on exertion. Denies: Dyspnea, Cough Gastrointestinal: Denies: Abdominal pain, Nausea, Vomiting, Diarrhea, Melena, Hematochezia Genitourinary: Denies: Dysuria, Hematuria, Frequency Musculoskeletal: Denies: Back pain, Extremity Pain Skin: Denies: Rash, Wounds Neurological: Denies: Headache, Weakness, Numbness Physical Exam Vital Signs/Narrative: Vital Signs Temp Pulse Resp BP Pulse Ox 05/13/20 17:08 97.5 F L 119 H 20 H 109/68 97 Inital Vital Signs reviewed: Yes General: Well nourished, Well developed, No Acute Distress Head: Normocephalic, Atraumatic Eyes: Perrl, EOMI ENT: Moist mucous membranes, No rhinorrhea Neck: Supple, Nontender Cardiovascular: Regular rate, Regular rhythm, No murmurs Respiratory: No distress, CTA bilaterally, Chest nontender Abdomen: Soft, Nontender, Nondistended, Normal bowel sounds Back: Nontender, Normal Inspection Extremities: Nontender, No edema. Negative for: Calf Tenderness Skin: Normal color, No rash Neurological: Alert, Oriented x3, Cranial nerves II-XII grossly intact, Normal Strength, Normal Sensation Psychological: Normal affect, Normal Mood Diagnostic/Tx/Re-eval Chest X-Ray - ED: - - Single view portable x-ray interpreted by myself. Clear l melody eric bilaterally. No pleural effusions. Normal cardiac silhouette. Normal mediastinum. Agree with radiologist interpretation. - EKG Initial EKG Interpretation: - - Rate of 84 bpm and normal sinus rhythm. Normal intervals. Normal axis. No significant ST elevations or depressions. Some baseline artifact in V2 no T wave abnormalities. - Medical Decision Making Patient presents to the emergency department for palpitations. This is acute on chronic issue for her. On arrival to the emergency department she was tachycardic but on my evaluation her heart rate is within normal limits. She is in no apparent distress. She has had significant work-ups for this including Holter monitors. She is satting well on room air. She does have a pulse ox at home that she monitors her oxygen saturation states that she never desaturates. Will check EKG, chest x-ray and basic lab work at this time. We will keep her on monitor to evaluate for any arrhythmia. Low concern for PE. I have discussed this with her previously about D-dimers and she typically runs high with her D-dimer and has negative CTAs. Patient's work-up did not reveal a significant acute abnormality. She has been in a normal sinus rhythm throughout ED stay. At this time she is stable for discharge. She is to follow-up with her PCP. Warning signs and symptoms which to return to the ED are reviewed. She understands and is agreeable this plan. All questions were answered. ED Disposition - Plan for ED Patient: Disposition: Home or Assisted Living Diagnosis: Palpitations Instructions: ED Palpitations Referrals: Freddy Dee MD [Primary Care Provider] - 3-5 Days
--- NOTE | 2020-05-13 18:08 | EKG12_ITS ---
Test Reason : DYSRHYTHMIA Blood Pressure : / mmHG Vent. Rate : 084 BPM Atrial Rate : 084 BPM P-R Int : 138 ms QRS Dur : 086 ms QT Int : 392 ms P-R-T Axes : 057 063 046 degrees QTc Int : 463 ms Normal sinus rhythm with sinus arrhythmia Nonspecific ST abnormality Abnormal ECG Confirmed by YEN HARRIS, WILBERT ([id number]), editor department BERNA DEL TORO ([id number]) on 05/15/2020 7:59:26 AM Referred By: SHAHZAD Confirmed By:WILBERT BARLOW MD
[2020-05-13 18:20] VITALS: BP 146/85; PULSE 90; RESP 24; O2SAT 95
--- NOTE | 2020-05-13 18:21 | RAD_ITS ---
STUDY: X-RAY CHEST REASON FOR EXAM: Female, 54 years old. PALPITATIONS x3 DAYS TECHNIQUE: Single AP portable view of the chest. COMPARISON: 02/04/2020 FINDINGS: EKG leads overlie the chest The lungs are clear and expanded. There is no demonstrated pleural abnormality. Normal size heart. Normal mediastinum and ashley. Normal visualized pulmonary arteries. Normal visualized aortic arch and descending thoracic aorta. Normal visualized thoracic spine. Normal visualized ribs, clavicles, and shoulders. There is no demonstrated abnormality of the visualized soft tissue structures of the upper abdomen. RAD/Chest 1 View (Portable) IMPRESSION: No acute pulmonary process Electronically Signed: Cristofer Jacinto MD at 18:40 EST , Service support ,
[2020-05-13 18:43] LABS: Anion Gap 6 (5-15); BUN 14 mg/dL (7-18); Calcium,Total 8.8 mg/dL (8.5-10.1); Chloride 108 mmol/L (98-107); EST Glomerular Filtration Rate 61 mL/min (>60); Est Glom Filt Rate - Afr Amer 74 mL/min (>60); Estimated Creatinine Clearance 48.53 ml/min; Glucose 137 mg/dL (74-106); Magnesium 2.2 mg/dL (1.6-2.6); Phosphorus 2.8 mg/dL (2.5-4.9); Potassium 3.5 mmol/L (3.5-5.1); Sodium Level 141 mmol/L (136-145)
[2020-05-13 20:33] LABS: Absolute Lymphocyte Count 3.69 X10^3/uL (0.83-4.51); Absolute Neutrophil Count 7.3 X10^3/uL (2.0-7.7); Basophil# 0.07 X10^3/uL; Basophil% 0.6 % (0-1); Eosinophil# 0.21 X10^3/uL; Eosinophils% 1.7 % (0-5); Hematocrit 47.1 % (37-47); Hemoglobin 15.4 g/dL (12.0-15.0); Lymphocyte # 3.69 X10^3/ul (4.0); Lymphocyte % 30.2 % (19-41); Mean Corp Hgb Conc 32.7 g/dL (32-36); Mean Corpuscular Hgb 31.8 pg (27.0-32.0); Mean Corpuscular Volume 97.1 fL (81-99); Monocyte# 0.89 X10^3/uL; Monocyte% 7.3 % (0-10); NRBC Flagged by Analyzer 0 % (0-5); Neutrophil # 7.27 X10^3/uL (2.7-7.7); Neutrophil % 59.5 % (47-70); Platelet Count 293 K/mm3 (150-450); RBC Distribution Width CV 12.6 % (11.6-14.6); RBC Distribution Width SD 45.2 fl (35.1-43.9); Red Blood Count 4.85 M/mm3 (4.2-5.4); White Blood Count 12.2 K/mm3 (4.4-11.0)
[2020-05-13 21:20] VITALS: BP 141/91; PULSE 82; PULSE 85; RESP 16; O2SAT 95
== END 2020-05-13 21:21 | disposition home or self-care (01) ==
PROVIDERS: Emergency Provider Emergency Medicine; PCP Family Medicine
DX: R00.2 Palpitations (principal); R06.02 Shortness of breath; E03.9 Hypothyroidism, unspecified; I10 Essential (primary) hypertension; F17.200 Nicotine dependence, unspecified, uncomplicated; Z79.899 Other long term (current) drug therapy
CPT/HCPCS: 71045; 80048; 83735; 84100; 84484; 85025; 93005; 99283

== ENCOUNTER 2020-05-14 13:09 | Emergency (ER) | payer MEDICAID, SELFPAY ==
[2020-05-13 17:08] VITALS: BMI 38.5
[2020-05-14 13:11] VITALS: BP 153/108; PULSE 118; RESP 16; TEMP 36.1; O2SAT 94; BMI 37.8
--- NOTE | 2020-05-14 13:27 | EKG12_ITS ---
Test Reason : PALP Blood Pressure : / mmHG Vent. Rate : 093 BPM Atrial Rate : 093 BPM P-R Int : 136 ms QRS Dur : 088 ms QT Int : 382 ms P-R-T Axes : 048 071 040 degrees QTc Int : 474 ms Normal sinus rhythm with sinus arrhythmia Nonspecific ST abnormality Abnormal ECG Confirmed by ARYA HARRIS, JUAN ([id number]), photographic editor [address] ([id number]) on 05/20/2020 12:46:24 PM Referred By: [place] Confirmed By:JUAN KOENIG MD
--- NOTE | 2020-05-14 13:28 | ED.DCSUM_ITS ---
History of Present Illness Chief Complaint: General Illness Informant: Patient Onset: Month(s) Context: Gradual Onset Timing: Intermittent Current Severity: Mild Maximum Severity: Moderate Narrative: Patient is a 54-year-old female who presents to the emergency department palpitations. This is been a longstanding issue for the patient. She has been evaluated by cardiology, electrophysiology, endocrinology, and multiple other specialists. There has not been a definitive cause for her palpitations. She has had echoes, Holter monitor, CAT scans of her chest, and work-up for other endocrine symptoms. The patient was actually here yesterday and had unremarkable work-up. She states that the symptoms came back where she felt her heart was racing and she was flushing. She states she has been battling this for years and does not know what to do. On arrival, she states she is starting to feel better. She denies chest pain. She denies any significant shortness of breath. She states she been compliant with her medications. Prior similar symptoms: Yes Recent Illness/Hospitalization: Yes Past Medical History - Allergies and Home Meds Allergies/Adverse Reactions: Allergies codeine Allergy (Verified 05/14/20 13:14) Rash hydrocodone bitartrate [From Vicodin] Allergy (Verified 05/14/20 13:14) Rash methimazole [From Tapazole] Allergy (Verified 05/14/20 13:14) Shortness of breath famotidine [From Pepcid] Adverse Reaction (Unknown, Verified 05/14/20 13:14) Unknown estradiol [From CombiPatch] Adverse Reaction (Verified 05/14/20 13:14) myalgias, lip/mouth burn, SOB, nausea, dizziness methylprednisolone sodium succinate [From Solu-Medrol] Adverse Reaction (Verified 05/14/20 13:14) Other norethindrone [From CombiPatch] Adverse Reaction (Verified 05/14/20 13:14) myalgias, lip/mouth burn, SOB, nausea, dizziness oxycodone HCl [From Percocet] Adverse Reaction (Verified 05/14/20 13:14) Nausea/Vom/Diarrhea Primary Care Physician: Freddy Dee MD [Primary Care Provider] - Prior records reviewed: Yes Past Medical History: - - GERD, hypertension, history of SVT Surgical History: cholecystectomy, - - Ectopic , tubal ligation Smoking Status: Unknown if ever smoked Review of Systems General: Denies: Chills, Fever, Sweats Eyes: Denies: Visual changes - bilaterally, Diplopia ENT: Denies: Rhinorrhea, Sore throat Cardiovascular: Reports: Palpitations, Heart racing. Denies: Chest pain Respiratory: Denies: Dyspnea, Cough, Dyspnea on exertion Gastrointestinal: Reports: Diarrhea. Denies: Abdominal pain, Nausea, Vomiting, Melena, Hematochezia Genitourinary: Denies: Dysuria, Hematuria, Frequency Musculoskeletal: Denies: Back pain, Extremity Pain Skin: Denies: Rash, Wounds Neurological: Denies: Headache, Weakness, Numbness Physical Exam Vital Signs/Narrative: Vital Signs Temp Pulse Resp BP Pulse Ox 05/14/20 13:11 97.0 F L 118 H 16 153/108 H 94 Inital Vital Signs reviewed: Yes General: Well nourished, Well developed, No Acute Distress Head: Normocephalic, Atraumatic Eyes: Perrl, EOMI ENT: Moist mucous membranes, No rhinorrhea Neck: Supple, Nontender Cardiovascular: Regular rate, Regular rhythm, No murmurs Respiratory: No distress, CTA bilaterally, Chest nontender Abdomen: Soft, Nontender, Nondistended, Normal bowel sounds Back: Nontender, Normal Inspection Extremities: Nontender, No edema Skin: Normal color, No rash Neurological: Alert, Oriented x3, Cranial nerves II-XII grossly intact, Normal Strength, Normal Sensation Psychological: Normal affect, Normal Mood Diagnostic/Tx/Re-eval - Rhythm Strip Rhythm Strip: Sinus Rhythm Rate: 90 Ectopy: None - EKG Initial EKG Interpretation: Sinus Rhythm, No Acute Injury Pattern, Non-Specific ST Changes Prior: Unchanged - Medical Decision Making The patient presents with palpitations and intermittent shortness of breath. E KG was obtained on arrival. Was sinus rhythm. Was unchanged from prior. The patient did have a rather thorough evaluation yesterday. I did spend a lot of time discussing this with the patient. Her symptoms are frequent, but she has had multiple emergency department evaluations. She is seen multiple specialists. She has been having similar symptoms for 5 years. I did career and guidance counselor her that there is not much else I can offer her from the emergency department. She did agree to have a thyroid screen done. I do feel the most important thing is that she continues to follow with her primary care, but at this point I do not suspect a dangerous process given the prolonged duration of the symptoms. Impression 1. Palpitations ED Disposition - Plan for ED Patient: Instructions: ED Palpitations Referrals: Freddy Dee MD [Primary Care Provider] - 3-5 Days
[2020-05-14 14:03] LABS: Thyroid Stim Hormone (TSH) 1.57 uIU/mL (0.358-3.74)
== END 2020-05-14 14:28 | disposition home or self-care (01) ==
LOC: ED 13:50
PROVIDERS: Emergency Provider Emergency Medicine; PCP Family Medicine
DX: R00.2 Palpitations (principal); R06.02 Shortness of breath; R23.2 Flushing; I10 Essential (primary) hypertension; K21.9 Gastro-esophageal reflux disease without esophagitis; Z79.899 Other long term (current) drug therapy
CPT/HCPCS: 36415; 84443; 93005; 99282

== ENCOUNTER 2020-06-02 15:04 | Emergency (ER) | payer MEDICAID, SELFPAY ==
[2020-06-02 15:05] VITALS: BP 167/109; PULSE 122; RESP 18; TEMP 36.2; O2SAT 97; BMI 37.8
--- NOTE | 2020-06-02 15:55 | ED.DCSUM_ITS ---
History of Present Illness Chief Complaint: General Illness Informant: Patient Narrative: 54-year-old female presenting with scratchy throat, mild cough, chills. She denies fever or change in taste and smells. She currently has family members in her house with Covid-19 and she states she is trying to steer clear them. She states he has enough room in her house to have a really quarantine. Her first exposure was about 8 days ago. She started having symptoms 3 days ago. She states her son went to a anti-Trump constitution party where they did not wear masks. She denies chest pain, palpitations, shortness of breath. - Past Medical History (1) History of gastroesophageal reflux (GERD) Status: Chronic (2) Acquired hypothyroidism Status: Chronic (3) Essential hypertension Status: Chronic (4) Paroxysmal SVT (supraventricular tachycardia) Status: Chronic Past Medical History - Allergies and Home Meds Allergies/Adverse Reactions: Allergies codeine Allergy (Verified 06/02/20 15:08) Rash hydrocodone bitartrate [From Vicodin] Allergy (Verified 06/02/20 15:08) Rash methimazole [From Tapazole] Allergy (Verified 06/02/20 15:08) Shortness of breath famotidine [From Pepcid] Adverse Reaction (Unknown, Verified 06/02/20 15:08) Unknown estradiol [From CombiPatch] Adverse Reaction (Verified 06/02/20 15:08) myalgias, lip/mouth burn, SOB, nausea, dizziness methylprednisolone sodium succinate [From Solu-Medrol] Adverse Reaction ([place] ified 06/02/20 15:08) Other norethindrone [From CombiPatch] Adverse Reaction (Verified 06/02/20 15:08) myalgias, lip/mouth burn, SOB, nausea, dizziness oxycodone HCl [From Percocet] Adverse Reaction (Verified 06/02/20 15:08) Nausea/Vom/Diarrhea Primary Care Physician: Freddy Dee MD [Primary Care Provider] - Prior records reviewed: Yes Past Medical History: - - Reviewed in problem list Surgical History: cholecystectomy, - - Ectopic , tubal ligation Lives: With Family Smoking Status: Unknown if ever smoked Alcohol: None Drugs: None Review of Systems General: Reports: Chills. Denies: Fever, Malaise Eyes: Denies: Visual changes - bilaterally, Diplopia ENT: Reports: - - Scratchy throat. Denies: Rhinorrhea Cardiovascular: Denies: Chest pain, Palpitations Respiratory: Reports: Cough. Denies: Dyspnea, Sputum Gastrointestinal: Reports: Diarrhea. Denies: Abdominal pain, Nausea Genitourinary: Denies: Dysuria, Hematuria Musculoskeletal: Denies: Myalgias, Arthralgias Skin: Denies: Rash, Abscess Neurological: Denies: Headache, Parasthesia, Numbness Psych: Reports: Anxiety. Denies: Depression Physical Exam Vital Signs/Narrative: Vital Signs Temp Pulse Resp BP Pulse Ox 06/02/20 15:05 97.2 F L 122 H 18 167/109 H 97 Inital Vital Signs reviewed: Yes General: Well nourished, No Acute Distress Head: Normocephalic, Atraumatic Eyes: Perrl, EOMI ENT: Moist mucous membranes, Sinus tenderness Cardiovascular: Regular rate, Regular rhythm Respiratory: No distress, CTA bilaterally. Negative for: Wheezing Abdomen: Soft, Nontender Skin: Normal color, No rash Neurological: Alert, Oriented x3 Psychological: Normal affect, Normal Mood Diagnostic/Tx/Re-eval 54-year-old female presenting for evaluation of scratchy throat, chills, cough. She states she had a negative Covid swab on day 2 of her symptoms. She is concerned that she still has Covid because her symptoms are slightly worsened. She wants to know if she has Covid so that she can qualify for the monoclonal antibodies treatment. Patient's lungs are clear. Heart rate regular rate and rhythm without murmur. Vital signs are stable and she is afebrile. She is not complaining of chest pain or shortness of breath. I will retest her today and have her quarantine at home. Impression: 1. Viral syndrome ED Disposition - Plan for ED Patient: Referrals: Freddy Dee MD [Primary Care Provider] -
[2020-06-02 16:33] VITALS: PULSE 92; RESP 16; O2SAT 96
--- NOTE | 2020-06-02 16:33 | ED.RN ---
IV DC'ED, CATHETER INTACT, SMALL GAUZE DRESSING PLACED. DISCHARGE INSTRUCTIONS GIVEN TO AND REVIEWED WITH PATIENT, PATIENT DENIES QUESTIONS OR CONCERNS AND VOICES UNDERSTANDING OF DISCHARGE INSTRUCTIONS. PT AMBULATES OUT OF ROOM WITHOUT DIFFICULTY.
== END 2020-06-02 16:34 | disposition home or self-care (01) ==
PROVIDERS: Emergency Provider Student in an Organized Health Care Education/Training Program; PCP Family Medicine
DX: B34.9 Viral infection, unspecified (principal); Z20.822 Contact with and (suspected) exposure to COVID-19; R05 Cough; R09.89 Other specified symptoms and signs involving the circulatory and respiratory systems; R19.7 Diarrhea, unspecified; R68.83 Chills (without fever); I10 Essential (primary) hypertension; E03.9 Hypothyroidism, unspecified; K21.9 Gastro-esophageal reflux disease without esophagitis
CPT/HCPCS: 87426; 99283; A4216

== ENCOUNTER → 2021-04-24 | Outpatient (CLI) | payer MEDICAID, SELFPAY | END | disposition home or self-care (01) | PROVIDERS: PCP Family Medicine; Visit Provider Physician Assistant Medical | DX: Z11.52 Encounter for screening for COVID-19 (principal) | CPT/HCPCS: 87635; U0003; U0005 ==

== ENCOUNTER 2021-06-24 11:43 | Outpatient (CLI) | payer MEDICAID, SELFPAY ==
[2021-06-24 12:25] LABS: Absolute Lymphocyte Count 3.75 X10^3/uL (0.83-4.51); Absolute Neutrophil Count 7.3 X10^3/uL (2.0-7.7); Basophil# 0.06 X10^3/uL; Basophil% 0.5 % (0-1); Eosinophils% 1.6 % (0-5); Hematocrit 46.6 % (37-47); Hemoglobin 15.2 g/dL (12.0-15.0); Lymphocyte # 3.75 X10^3/ul (0.83-4.51); Lymphocyte % 30.5 % (19-41); Mean Corp Hgb Conc 32.6 g/dL (32-36); Mean Corpuscular Hgb 31.5 pg (27.0-32.0); Mean Corpuscular Volume 96.7 fL (81-99); Mean Platelet Vol. 9.9 fl (6.2-12.0); Monocyte# 0.94 X10^3/uL; Monocyte% 7.6 % (0-10); NRBC Flagged by Analyzer 0 % (0-5); Neutrophil # 7.25 X10^3/uL (2.7-7.7); Platelet Count 288 K/mm3 (150-450); RBC Distribution Width CV 12.4 % (11.6-14.6); RBC Distribution Width SD 44.4 fl (35.1-43.9); Red Blood Count 4.82 M/mm3 (4.2-5.4); White Blood Count 12.3 K/mm3 (4.4-11.0)
[2021-06-24 12:57] LABS: Vitamin D,25 Hydroxy 14.8 ng/mL
[2021-06-24 13:07] LABS: ALB/GLOB Ratio 0.9 RATIO (0.9-2.4); AST(SGOT) 21 U/L (15-37); Alanine Aminotransfer ALT/SGPT 44 U/L (13-56); Albumin, Serum 3.7 g/dL (3.2-5.0); Alkaline Phosphatase 85 U/L (45-117); Anion Gap 6 (5-15); BUN 11 mg/dL (7-18); BUN/Creat Ratio 13.3 RATIO (10-20); Calcium,Total 8.9 mg/dL (8.5-10.1); Chloride 108 mmol/L (98-107); Cholesterol 131 mg/dL (200); Creatinine, Serum 0.83 mg/dL (0.55-1.02); EST Glomerular Filtration Rate 76 mL/min (>60); Est Glom Filt Rate - Afr Amer 92 mL/min (>60); Globulin 4.2 g/dL (2.2-4.2); Glucose 101 mg/dL (74-106); High Density Lipoprotein 48 mg/dL; Magnesium 2.4 mg/dL (1.6-2.6); Protein, Total 7.9 g/dL (6.4-8.2); Sodium Level 139 mmol/L (136-145); T4 Free Direct 1.18 ng/dL (0.76-1.46); Thyroid Stim Hormone (TSH) 1.73 uIU/mL (0.358-3.74); Triglycerides 73 mg/dL; Very Low Density Lipoprotein 15 mg/dL (5-40)
== END 2021-06-24 23:59 | disposition home or self-care (01) ==
LOC: BIMLAB 11:44
PROVIDERS: PCP Family Medicine; Referring Provider Internal Medicine Endocrinology, Diabetes & Metabolism; Visit Provider Internal Medicine Endocrinology, Diabetes & Metabolism
DX: E03.9 Hypothyroidism, unspecified (principal); R73.03 Prediabetes; E55.9 Vitamin D deficiency, unspecified
CPT/HCPCS: 36415; 80053; 80061; 82306; 83735; 84439; 84443; 85025

== ENCOUNTER 2021-10-07 09:42 | Emergency (ER) | payer MEDICAID, SELFPAY ==
[2021-10-07 09:43] VITALS: BP 179/105; PULSE 115; RESP 16; TEMP 36.6; O2SAT 98; BMI 37.8
--- NOTE | 2021-10-07 09:59 | RAD_ITS ---
STUDY: X-RAY CHEST REASON FOR EXAM: Female, 55 years old. Sob TECHNIQUE: Single AP portable view of the chest. COMPARISON: Comparison is made with prior study dated 05/13/2020. FINDINGS: EKG electrodes are seen. Increased markings are seen in the medial aspect of the right lung base. Early infiltration be ruled out. There is no demonstrated pleural abnormality. Normal size heart. Normal mediastinum and ashley. Normal visualized pulmonary arteries. Normal visualized aortic arch and descending thoracic aorta. Normal visualized thoracic spine. Normal visualized ribs, clavicles, and shoulders. There is no demonstrated abnormality of the visualized soft tissue structures of the upper abdomen. RAD/Chest 1 View (Portable) IMPRESSION: Findings suggestive of early infiltrate in the medial aspect of the right lung base. Electronically Signed: Júnior Bailon MD at 10:47 EDT ,
--- NOTE | 2021-10-07 10:00 | EKG12_ITS ---
Test Reason : PALPS Blood Pressure : / mmHG Vent. Rate : 108 BPM Atrial Rate : 108 BPM P-R Int : 154 ms QRS Dur : 088 ms QT Int : 352 ms P-R-T Axes : 062 065 039 degrees QTc Int : 471 ms Sinus tachycardia Nonspecific ST abnormality Abnormal ECG Confirmed by ARYA HARRIS, JUAN ([id number]), design editor DAVIDSON HENDRICKS ([id number]) on 10/08/2021 10:13:02 AM Referred By: BEATRICE Confirmed By:JUAN KOENIG MD
--- NOTE | 2021-10-07 10:08 | EDS_ITS ---
HPI History of Present Illness Chief Complaint: Palpitations Informant: patient Onset/Context/Timing Onset: Days (3 to 4 days) Context: Gradual Onset Narrative Narrative: Patient presents with 3 to 4-day history of headache and intermittent palpitations. She states her heart rate and blood pressure a bit higher than normal. She will often experience this when her thyroid numbers are too high. She also reports that she is under a lot of stress recently. She denies chest pain. She has had some facial pressure consistent with sinus infection and a mild cough. [facility] Medical History Anxiety Cholecystectomy planned Depression Essential hypertension GERD (gastroesophageal reflux disease) Hypertension Hyperthyroidism IBS (irritable bowel syndrome) Meniere disease Paroxysmal SVT (supraventricular tachycardia) Pre-diabetes Premature atrial contractions Premature ventricular contraction Sinus tachycardia Swine flu Tobacco abuse Vitamin D deficiency Home Medications levothyroxine 150 mcg tablet 150 mcg PO DAILY tab 06/24/21 [History Last Taken Unknown] Allergy/AdvReac Type Severity Reaction Status Date / Time codeine Allergy Rash Verified 10/07/21 09:46 hydrocodone bitartrate Allergy Rash Verified 10/07/21 09:46 [From Vicodin] methimazole [From Tapazole] Allergy Shortness Verified 10/07/21 09:46 of breath famotidine [From Pepcid] AdvReac Unknown Unknown Verified 10/07/21 09:46 estradiol [From CombiPatch] AdvReac myalgias, Verified 10/07/21 09:46 lip/mouth burn, SOB, nausea, dizziness methylprednisolone sodium AdvReac Other Verified 10/07/21 09:46 succinate [From Solu-Medrol] norethindrone AdvReac myalgias, Verified 10/07/21 09:46 [From CombiPatch] lip/mouth burn, SOB, nausea, dizziness oxycodone HCl [From Percocet] AdvReac Nausea/Vom/ Verified 10/07/21 09:46 Diarrhea cyp 2019 AdvReac Intermediate unknown Uncoded 10/07/21 09:46 [id number] AdvReac Unknown unknown Uncoded 10/07/21 09:46 Family History Father CAD (coronary artery disease) Hypertension Myocardial infarction, Onset Age: 66 Hx of CABG Surgical History History of cholecystectomy History of left oophorectomy History of tubal ligation Social History Smoking Status: Unknown if ever smoked alcohol intake: never substance use type: does not use caffeine: No ROS ROS ED Constitutional Constitutional ED: Denies chills or fever(s) Eyes Eyes: Denies change in vision ENT ENT ED: Denies sore throat Cardiovascular Cardiovascular: Reports palpitations; Denies chest pain Respiratory/Chest Respiratory/Chest: Reports dyspnea; Denies cough Gastrointestinal Gastrointestinal: Denies abdominal pain, nausea or vomiting Genitourinary Genitourinary ED: Denies dysuria Musculoskeletal Musculoskeletal: Denies back pain Integumentary Denies rash Neurologic Neurologic: Denies headache(s) or weakness Allergic/Immunologic Allergic/Immunologic ED: Denies urticaria EXAM Physical Exam Const Vital Signs: 10/07/21 09:43 10/07/21 10:07 10/07/21 10:09 Temperature 97.9 F Temperature Source Temporal Pulse Rate 115 H 85 Respiratory Rate 16 12 Respiratory Effort Normal Non-Labored Respiratory Pattern Normal Blood Pressure 179/105 H 151/90 H Blood Pressure Mean 129 110 Pulse Ox 98 94 Oxygen Delivery Method Room Air Room Air 10/07/21 12:16 Temperature Temperature Source Pulse Rate 80 Respiratory Rate 11 L Respiratory Effort Respiratory Pattern Blood Pressure 140/90 H Blood Pressure Mean 106 Pulse Ox 98 Oxygen Delivery Method Room Air Positive well nourished and well developed General Appearance ED: well developed HEENT Reports moist mucous membranes Eyes PERRL and EOMs intact bilaterally Neck supple Chest Wall inspection of chest normal and palpation of chest normal Resp normal respiratory effort and clear to auscultation bilaterally Cardio Rate: tachycardic GI non-tender Palpation: soft Extremity normal to inspection Neuro oriented x3 Sensorium / Orientation: alert Psych mental status grossly normal Skin no rashes or lesions noted MDM MDM MDM Narrative Medical decision making narrative: EKG and chest x-ray obtained. Lab work ordered. Lab Data Attestation: I reviewed the patient's lab results. Labs: Laboratory Results - last 24 hr 10/07/21 10/07/21 10/07/21 10:00 10:00 10:00 WBC 11.6 H RBC 4.94 Hgb 16.0 H Hct 47.0 MCV 95.1 MCH 32.4 H MCHC 34.0 RDW Std Deviation 42.5 RDW Coeff of Linette 12.2 Plt Count 285 MPV 9.6 Immature Gran % (Auto) 0.700 Neut % (Auto) 55.0 Lymph % (Auto) 33.3 Lane % (Auto) 8.6 Eos % (Auto) 1.8 Baso % (Auto) 0.6 Absolute Neuts (auto) 6.4 Absolute Lymphs (auto) 3.85 Nucleated RBC % 0 Sodium 138 Potassium 3.6 Chloride 106 Carbon Dioxide 27.0 Anion Gap 5 BUN 9 Creatinine 0.81 Estim Creat Clear Calc 59.22 Est GFR (MDRD) Af Amer 95 Est GFR (MDRD) Non-Af 78 BUN/Creatinine Ratio 11.2 Glucose 127 H Calcium 9.2 Troponin I High Sens 4 TSH 2.47 Thyroxine (T4) 10.9 Total T3 10/07/21 10:00 WBC RBC Hgb Hct MCV MCH MCHC RDW Std Deviation RDW Coeff of Linette Plt Count MPV Immature Gran % (Auto) Neut % (Auto) Lymph % (Auto) Lane % (Auto) Eos % (Auto) Baso % (Auto) Absolute Neuts (auto) Absolute Lymphs (auto) Nucleated RBC % Sodium Potassium Chloride Carbon Dioxide Anion Gap BUN Creatinine Estim Creat Clear Calc Est GFR (MDRD) Af Amer Est GFR (MDRD) Non-Af BUN/Creatinine Ratio Glucose Calcium Troponin I High Sens TSH Thyroxine (T4) Total T3 1.05 Radiography Diagnostic Testing: Clinical Impression(s) from Imaging Studies Chest X-Ray 10/07/21 09:59 IMPRESSION: Findings suggestive of early infiltrate in the medial aspect of the right lung base. Electronically Signed: Júnior Bailon MD at 10:47 EDT , EKG Initial EKG: Attestation: I personally reviewed and interpreted this EKG as follows: Interpretation: Sinus Tachycardia (Sinus tach at 108 with no acute is chemia.) Treatment and Re-Evaluation Narrative: On repeat evaluation patient resting comfortably. With no intervention heart rate is down to 80 and blood pressure is 140/90. Lab work is unremarkable other than a mild elevation of white count at 11.6. Troponin is negative. TSH, T3, T4 are all normal. Chest x-ray per my interpretation reveals no acute findings. Radiology feels there may be a early infiltrate in the right lung base. I spoke with the patient and she states that she does not feel that she has pneumonia and does not feel that she requires antibiotics at this time. I did encourage her that if she develops fever or worsening cough she needs to be seen and likely started on antibiotics. She voices understanding and agreement. Return instructions are provided. Discharge Plan Triage Chief Complaint: Palpitations ED Provider: Demi Sharpe Dx/Rx/DC Orders Clinical Impression: Palpitations, Cephalgia Instructions: ED Headache, Tension, ED Palpitations Prescriptions: No Action levothyroxine 150 mcg tablet 150 mcg PO DAILY RF: 0 Primary Care Provider: Freddy Dee Referrals: Freddy Dee MD [Primary Care Provider] - 1 Week if not improving Disposition Disposition: Home, Self Care Discharge Date/Time: 10/07/21 12:46
[2021-10-07 10:09] VITALS: BP 151/90; PULSE 85; RESP 12; O2SAT 94
[2021-10-07 10:14] LABS: Absolute Lymphocyte Count 3.85 X10^3/uL (0.83-4.51); Absolute Neutrophil Count 6.4 X10^3/uL (2.0-7.7); Basophil# 0.07 X10^3/uL; Basophil% 0.6 % (0-1); Eosinophil# 0.21 X10^3/uL; Eosinophils% 1.8 % (0-5); Lymphocyte # 3.85 X10^3/ul (0.83-4.51); Lymphocyte % 33.3 % (19-41); Mean Corpuscular Hgb 32.4 pg (27.0-32.0); Mean Corpuscular Volume 95.1 fL (81-99); Mean Platelet Vol. 9.6 fl (6.2-12.0); Monocyte# 0.99 X10^3/uL; Monocyte% 8.6 % (0-10); NRBC Flagged by Analyzer 0 % (0-5); Neutrophil # 6.36 X10^3/uL (2.7-7.7); Platelet Count 285 K/mm3 (150-450); RBC Distribution Width CV 12.2 % (11.6-14.6); RBC Distribution Width SD 42.5 fl (35.1-43.9); Red Blood Count 4.94 M/mm3 (4.2-5.4); White Blood Count 11.6 K/mm3 (4.4-11.0)
[2021-10-07 10:54] LABS: Anion Gap 5 (5-15); BUN 9 mg/dL (7-18); BUN/Creat Ratio 11.2 RATIO (10-20); Calcium,Total 9.2 mg/dL (8.5-10.1); Chloride 106 mmol/L (98-107); Creatinine, Serum 0.81 mg/dL (0.55-1.02); EST Glomerular Filtration Rate 78 mL/min (>60); Est Glom Filt Rate - Afr Amer 95 mL/min (>60); Estimated Creatinine Clearance 59.22 ml/min; Glucose 127 mg/dL (74-106); Potassium 3.6 mmol/L (3.5-5.1); Sodium Level 138 mmol/L (136-145); Troponin-I HS 4 pg/mL (3.0-54.0)
[2021-10-07 11:25] LABS: T4 Total, Thyroxin 10.9 ug/dL (4.8-13.9); Thyroid Stim Hormone (TSH) 2.47 uIU/mL (0.358-3.74)
[2021-10-07 12:16] VITALS: BP 140/90; PULSE 80; RESP 11; O2SAT 98
[2021-10-07 12:42] LABS: T3 Total - Triiodothyronine 1.05 ng/mL (0.6-1.81)
== END 2021-10-07 12:46 | disposition home or self-care (01) ==
PROVIDERS: Emergency Provider Emergency Medicine; PCP Family Medicine; Visit Provider Emergency Medicine
DX: R00.2 Palpitations (principal); I10 Essential (primary) hypertension; R51.9 Headache, unspecified; E05.90 Thyrotoxicosis, unspecified without thyrotoxic crisis or storm
CPT/HCPCS: 71045; 80048; 84436; 84443; 84480; 84484; 85025; 93005; 99284; A4216

== ENCOUNTER 2021-12-12 18:58 | Emergency (ER) | payer MEDICAID, SELFPAY ==
[2021-12-12 18:59] VITALS: BP 162/107; PULSE 104; RESP 16; TEMP 36.6; O2SAT 97; BMI 38.5
[2021-12-12 20:48] VITALS: BP 158/96; PULSE 74; RESP 15
--- NOTE | 2021-12-12 21:05 | US_ITS ---
STUDY: VENOUS DOPPLER ULTRASOUND - LEFT LOWER EXTREMITY REASON FOR EXAM: Female, 55 years old. LT POSTERIOR KNEE PAIN TIGHTNESS POSTERIOR LT CALF TECHNIQUE: Grayscale compression, color and spectral Doppler sonography of the lower extremity venous system was performed bilaterally. COMPARISON: 08/29/2019 ultrasound FINDINGS: COMMON FEMORAL VEINS: Compressible with venous flow and augmentation. FEMORAL VEINS: Compressible with venous flow and augmentation. POPLITEAL VEINS: Compressible with venous flow and augmentation. CALF VEINS: Venous flow demonstrated in the imaged segments. 3.3 x 3.5 x 0.6 cm Popliteal cyst in the region of the patient''s pain. US/Venous Duplex Imag/Limited/Uni IMPRESSION: No evidence of DVT. Tenderness over a popliteal cyst. Electronically Signed: Kailash Mccoy MD at 22:05 EDT Reading Location ID and State: [facility] / [place] Tel , Service support ,
--- NOTE | 2021-12-12 22:43 | EDS_ITS ---
HPI History of Present Illness Chief Complaint: Edema Informant: patient Narrative Narrative: IntraPatient is a 55-year-old female presenting with increased pain behind her left knee as well as swelling of her left lower leg. She denies any specific injury but she notes couple days ago she was actually thinks she might of hyperextended her leg. She started to have some mild pain and burning behind her knee but as the days progressed she is had worsening pain, swelling and pain with weightbearing. She was seen with a orthopedics today who thought she might have a Dominguez's cyst but recommend she have an ultrasound to rule out DVT. She had not heard back from them as far as scheduling and came to the emergency room to be evaluated further at the insistence of her daughter. Denies associated numbness or tingling. Denies any history of DVT or PE. No other complaints at this time. [facility] Medical History (Updated 12/12/21 @ 22:[address] Shirley Pop, DO) Anxiety Dominguez's cyst of knee Cholecystectomy planned Depression Essential hypertension GERD (gastroesophageal reflux disease) Hypertension Hyperthyroidism IBS (irritable bowel syndrome) Meniere disease Paroxysmal SVT (supraventricular tachycardia) Pre-diabetes Premature atrial contractions Premature ventricular contraction Sinus tachycardia Swine flu Tobacco abuse Vitamin D deficiency Home Medications levothyroxine 150 mcg tablet 150 mcg PO DAILY 06/24/21 [History Last Taken Unknown] estradiol 0.025 mg/24 hr semiweekly transdermal patch 1.5 patch transdermal .QOD 12/11/21 [History Last Taken Unknown] meloxicam 7.5 mg tablet 7.5 mg PO DAILY #30 tabs 12/11/21 [Rx Last Taken Unknown] Allergy/AdvReac Type Severity Reaction Status Date / Time codeine Allergy Rash Verified 12/11/21 10:46 hydrocodone bitartrate Allergy Rash Verified 12/11/21 10:46 [From Vicodin] methimazole [From Tapazole] Allergy Shortness Verified 12/11/21 10:46 of breath famotidine [From Pepcid] AdvReac Unknown Unknown Verified 12/11/21 10:46 estradiol [From CombiPatch] AdvReac myalgias, Verified 12/11/21 10:46 lip/mouth burn, SOB, nausea, dizziness methylprednisolone sodium AdvReac Other Verified 12/11/21 10:46 succinate [From Solu-Medrol] norethindrone AdvReac myalgias, Verified 12/11/21 10:46 [From CombiPatch] lip/mouth burn, SOB, nausea, dizziness oxycodone HCl [From Percocet] AdvReac Nausea/Vom/ Verified 12/11/21 10:46 Diarrhea cyp 2019 AdvReac Intermediate unknown Uncoded 12/11/21 10:46 CYP2B6 AdvReac Unknown unknown Uncoded 12/11/21 10:46 Family History Father CAD (coronary artery disease) Hypertension Myocardial infarction, Onset Age: 66 Hx of CABG Surgical History History of cholecystectomy History of left oophorectomy History of tubal ligation Social History Smoking Status: Unknown if ever smoked alcohol intake: never substance use type: does not use caffeine: No ROS ROS ED Constitutional Constitutional ED: Denies chills, fever(s) or malaise Eyes Eyes: Denies blurry vision or loss of vision Cardiovascular Cardiovascular: Denies chest pain or dizziness Respiratory/Chest Respiratory/Chest: Denies cough or dyspnea Gastrointestinal Gastrointestinal: Denies nausea or vomiting Genitourinary Genitourinary ED: Denies dysuria or hematuria Musculoskeletal Musculoskeletal: Reports difficulty walking and extremity pain; Denies myalgias Integumentary Denies rash or wounds Neurologic Neurologic: Denies focal weakness or headache(s) Psychiatric Psychiatric: Denies anxiety or behavioral changes EXAM Physical Exam Const Vital Signs: 12/12/21 18:59 12/12/21 20:48 12/12/21 20:50 Temperature 97.8 F Temperature Source Temporal Pulse Rate 104 H 74 Respiratory Rate 16 15 Respiratory Effort Normal Blood Pressure 162/107 H 158/96 H Blood Pressure Mean 125 116 Pulse Ox 97 Oxygen Delivery Method Room Air Positive well nourished and well developed General Appearance ED: well developed and NAD HEENT Reports moist mucous membranes normocephalic and atraumatic Eyes PERRL Neck full ROM and supple Chest Wall inspection of chest normal and palpation of chest normal Resp normal respiratory effort Cardio regular rate and regular rhythm Cardio Narrative: 2+ DP pulses GI non-tender and non-distended Extremity Extremity Narrative: Tenderness palpation of the left posterior knee with some slight associated nonpitting edema of the lower extremity. No palpable cords. No overlying skin changes. Slight decreased range of motion of the knee secondary to pain and swelling General Extremety ED: Negative for edema General Extremity: Negative for edema Neuro oriented x3, moves all extremities and no sensory deficits noted Psych mental status grossly normal Skin no wounds MDM MDM MDM Narrative Medical decision making narrative: Patient is evaluated for atraumatic pain of her left posterior knee. Venous duplex ultrasound obtained is negative for DVT but does show cystic swelling behind the knee consistent with a popliteal cyst. I do not suspect joint infection. Patient otherwise is well-appearing. Will be discharged home to follow-up with orthopedics. Counseled on rice therapy and placed in Slade wrap. She is neurovascularly intact. Radiography Diagnostic Testing: Clinical Impression(s) from Imaging Studies Venous Duplex 12/12/21 21:05 IMPRESSION: No evidence of DVT. Tenderness over a popliteal cyst. Electronically Signed: Kailash Mccoy MD at 22:05 EDT Reading Location ID and State: [address] [place] [address] Tel , Service support , Discharge Plan Triage Chief Complaint: Edema ED Provider: Shirley Pop Dx/Rx/DC Orders Clinical Impression: Dominguez's cyst of knee, Edema of left lower leg Instructions: ED Dominguez's Cyst Prescriptions: No Action levothyroxine 150 mcg tablet 150 mcg PO DAILY estradiol 0.025 mg/24 hr patch semiweekly 1.5 patch transdermal .QOD meloxicam 7.5 mg tablet 7.5 mg PO DAILY Qty: 30 0RF Rx Instructions: Take once daily with food, do not take in conjunction with other NSAIDS. Okay to take Tylenol for breakthrough pain. Primary Care Provider: Freddy Dee Referrals: Freddy Dee MD [Primary Care Provider] - Activity Restrictions/Additional Instructions: Continue to follow-up with orthopedics. Wear Slade wrap to your knee and compression stockings to help with the swelling. Elevate your legs is much as possible. Disposition Disposition: Home, Self Care
== END 2021-12-12 22:56 | disposition home or self-care (01) ==
PROVIDERS: Emergency Provider Emergency Medicine; PCP Family Medicine; Visit Provider Emergency Medicine
DX: M71.22 Synovial cyst of popliteal space [Baker], left knee (principal); R60.0 Localized edema; I10 Essential (primary) hypertension; R73.03 Prediabetes; E05.90 Thyrotoxicosis, unspecified without thyrotoxic crisis or storm; Z79.890 Hormone replacement therapy; Z79.899 Other long term (current) drug therapy
CPT/HCPCS: 93971; 99282

== ENCOUNTER 2022-02-15 02:10 | Emergency (ER) | payer MEDICAID, SELFPAY ==
[2022-02-15 02:11] VITALS: BP 158/98; PULSE 136; RESP 20; TEMP 36.2; O2SAT 94; BMI 39.6
[2022-02-15 02:13] VITALS: O2SAT 97
--- NOTE | 2022-02-15 02:20 | EKG12_ITS ---
Test Reason : DYSRHYTHMIA Blood Pressure : / mmHG Vent. Rate : 093 BPM Atrial Rate : 093 BPM P-R Int : 144 ms QRS Dur : 092 ms QT Int : 380 ms P-R-T Axes : 058 067 027 degrees QTc Int : 472 ms Normal sinus rhythm Nonspecific ST abnormality Abnormal ECG Confirmed by YEN HARRIS, WILBERT ([id number]), fan mail editor DAVIDSON HENDRICKS ([id number]) on 02/17/2022 1:31:44 PM Referred By: JOSE Confirmed By:WILBERT BARLOW MD
--- NOTE | 2022-02-15 03:08 | RAD_ITS ---
INDICATION: cough EXAMINATION/TECHNIQUE: X-RAY - XR Chest 2 Views COMPARISON: 10/07/2021 FINDINGS: LINES/DEVICES: None. LUNGS: No consolidation, edema or effusion. No pneumothorax. MEDIASTINUM AND CARDIOVASCULAR STRUCTURES: Cardiac silhouette not enlarged. Central airways and mediastinal contour are unremarkable. BONES AND SOFT TISSUES: Unremarkable. RAD/Chest PA and Lateral IMPRESSION: No acute cardiopulmonary disease. Electronically Signed: Harry Sapp MD at 3:29 EDT ,
--- NOTE | 2022-02-15 04:00 | EX.ED.DYSGE1 ---
HPI History of Present Illness Chief Complaint: Asthma Narrative Narrative: Patient is a 56-year-old female with past medical history of asthma. She states she has had mild congestion drainage and cough for approximately 7 to 10 days. She denies any fever or known sick exposure. She states she is tested for COVID twice at home without any positive diagnosis. She states that she has an albuterol inhaler that she uses which she did do this evening but felt there was no improvement and therefore comes in for evaluation. However upon arrival patient states that after being exposed to the cool night air she had improvement of symptoms. She does have a past medical history of paroxysmal SVT but denies any palpitations associate with tonight's event [facility] Medical History (Updated 02/15/22 @ 08:[address] Bhupinder Fritz DO) Anxiety Dominguez's cyst of knee Cholecystectomy planned Depression Essential hypertension GERD (gastroesophageal reflux disease) Hypertension Hyperthyroidism IBS (irritable bowel syndrome) Lumbar degenerative disc disease Meniere disease Paroxysmal SVT (supraventricular tachycardia) Pre-diabetes Premature atrial contractions Premature ventricular contraction Sinus tachycardia Swine flu Tobacco abuse Vitamin D deficiency Home Medications levothyroxine 150 mcg tablet 150 mcg PO DAILY 06/24/21 [History Last Taken Unknown] estradiol 0.025 mg/24 hr semiweekly transdermal patch 1.5 patch transdermal .QOD 12/11/21 [History Last Taken Unknown] ibuprofen 200 mg tablet 400 mg PO Q6H PRN 12/30/21 [History Last Taken Unknown] albuterol sulfate 90 mcg/actuation aerosol inhaler (Ventolin HFA) 2 puff inhalation Q4H PRN PRN Wheezing #1 device 02/15/22 [Rx Last Taken Unknown] promethazine 6.25 mg-codeine 10 mg/5 mL syrup 5 ml PO 4X/DAY PRN PRN cough 7 days #140 mL 02/15/22 [Rx Last Taken Unknown] Allergy/AdvReac Type Severity Reaction Status Date / Time codeine Allergy Rash Verified 12/11/21 10:46 hydrocodone bitartrate Allergy Rash Verified 12/11/21 10:46 [From Vicodin] methimazole [From Tapazole] Allergy Shortness Verified 12/11/21 10:46 of breath famotidine [From Pepcid] AdvReac Unknown Unknown Verified 12/11/21 10:46 estradiol [From CombiPatch] AdvReac myalgias, Verified 12/11/21 10:46 lip/mouth burn, SOB, nausea, dizziness methylprednisolone sodium AdvReac Other Verified 12/11/21 10:46 succinate [From Solu-Medrol] norethindrone AdvReac myalgias, Verified 12/11/21 10:46 [From CombiPatch] lip/mouth burn, SOB, nausea, dizziness oxycodone HCl [From Percocet] AdvReac Nausea/Vom/ Verified 12/11/21 10:46 Diarrhea cyp 2019 AdvReac Intermediate unknown Uncoded 12/11/21 10:46 CYP2B6 AdvReac Unknown unknown Uncoded 12/11/21 10:46 Family History Father CAD (coronary artery disease) Hypertension Myocardial infarction, Onset Age: 66 Hx of CABG Surgical History History of cholecystectomy History of left oophorectomy History of tubal ligation Social History Smoking Status: Current every day smoker tobacco type: cigarettes alcohol intake: never substance use type: does not use caffeine: No ROS ROS ED Constitutional Constitutional ED: Denies chills or fever(s) ENT ENT ED: Reports rhinorrhea and sore throat Cardiovascular Cardiovascular: Denies chest pain Respiratory/Chest Respiratory/Chest: Reports cough and dyspnea Gastrointestinal Gastrointestinal: Denies abdominal pain, diarrhea, nausea or vomiting Genitourinary Genitourinary ED: Denies dysuria Musculoskeletal Musculoskeletal: Denies myalgias Integumentary Denies rash Neurologic Neurologic: Denies headache(s) Hematologic/Lymphatic Hematologic/Lymphatic: Denies easy bleeding or easy bruising EXAM Physical Exam Const Vital Signs: 02/15/22 02:11 02/15/22 02:13 02/15/22 04:11 Temperature 97.1 F L Temperature Source Temporal Pulse Rate 136 H 72 Respiratory Rate 20 H 17 Respiratory Effort Short of Breath Respiratory Depth Deep Respiratory Pattern Tachypnea Blood Pressure 158/98 H Blood Pressure Mean 118 Pulse Ox 94 95 Oxygen Delivery Method Room Air Room Air Positive well nourished and well developed General Appearance ED: well developed HEENT Reports moist mucous membranes HEENT Narrative: Cobblestoning noted in posterior pharynx consistent with sinus drainage but no airway edema or compromise. No tongue or lip swelling no oral lesions Eyes PERRL and EOMs intact bilaterally Neck supple and no JVD Chest Wall palpation of chest normal Resp normal respiratory effort Resp Narrative: Breath sounds are diminished throughout with expiratory wheezes noted mainly in the right lower lobe Cardio regular rate and regular rhythm Extremity normal to inspection Extremity Narrative: No asymmetric edema no pitting edema negative Homans' sign bilaterally Neuro oriented x3 and CN's II-XII intact bilaterally Sensorium / Orientation: alert Psych mental status grossly normal Skin no rashes or lesions noted MDM MDM MDM Narrative Medical decision making narrative: Patient presented to the ER in no acute respiratory distress satting approximately 95% on room air. She reported improvement of her symptoms with exposure to the cool air. She also states she has had negative COVID test at home. With the breath sounds showing some asymmetric wheezes there was concern for developing pneumonia so I like to perform a chest x-ray. This revealed no acute infiltrate. Patient states that she does not wish to be on steroids as she does not tolerate their side effects well and she does not want any type of nebulized breathing treatment as she does not like the palpitations it provides. Therefore at this time as patient is not in respiratory distress she does not have pneumonia pneumothorax or pleural effusion on x-ray and is not requiring supplemental oxygen she can be discharged home with symptomatic care Radiography Diagnostic Testing: Clinical Impression(s) from Imaging Studies Chest X-Ray 02/15/22 03:08 IMPRESSION: No acute cardiopulmonary disease. Electronically Signed: Hrary Sapp MD at 3:29 EDT , Chest x-ray as interpreted by the emergency medicine physician reveals no acute infiltrate pneumothorax or pleural effusion Discharge Plan Triage Chief Complaint: Asthma ED Provider: Bhupinder Fritz Dx/Rx/DC Orders Clinical Impression: Acute upper respiratory infection, Asthma exacerbation, Essential hypertension Instructions: ED URI, Viral W/ Wheezing (Adult), Asthma Prescriptions: New albuterol sulfate [Ventolin HFA] 90 mcg/actuation HFA aerosol inhaler 2 puff inhalation Q4H PRN PRN (Reason: Wheezing) Qty: 1 2RF promethazine-codeine 6.25-10 mg/5 mL syrup 5 ml PO 4X/DAY PRN PRN (Reason: cough) 7 Days Qty: 140 0RF No Action levothyroxine 150 mcg tablet 150 mcg PO DAILY estradiol 0.025 mg/24 hr patch semiweekly 1.5 patch transdermal .QOD ibuprofen 200 mg tablet 400 mg PO Q6H PRN Primary Care Provider: Freddy Dee Referrals: Freddy Dee MD [Primary Care Provider] - Disposition Disposition: Home, Self Care Discharge Date/Time: 02/15/22 04:13
[2022-02-15 04:11] VITALS: PULSE 72; RESP 17; O2SAT 95
== END 2022-02-15 04:13 | disposition home or self-care (01) ==
PROVIDERS: Emergency Provider Emergency Medicine; PCP Family Medicine; Visit Provider Emergency Medicine
DX: J06.9 Acute upper respiratory infection, unspecified (principal); I10 Essential (primary) hypertension; J45.901 Unspecified asthma with (acute) exacerbation; R73.03 Prediabetes; K21.9 Gastro-esophageal reflux disease without esophagitis; E55.9 Vitamin D deficiency, unspecified; F41.9 Anxiety disorder, unspecified; F17.210 Nicotine dependence, cigarettes, uncomplicated; Z79.890 Hormone replacement therapy; Z79.899 Other long term (current) drug therapy
CPT/HCPCS: 71046; 93005; 99282

== ENCOUNTER 2022-06-19 23:32 | Emergency (ER) | payer MEDICAID, SELFPAY ==
[2022-06-19 23:34] VITALS: BP 146/95; PULSE 98; RESP 17; TEMP 36.4; O2SAT 99; BMI 37.8
[2022-06-19 23:38] VITALS: O2SAT 98
--- NOTE | 2022-06-19 23:52 | EDS_ITS ---
HPI HPI - URI History of Present Illness Chief Complaint: Sore Throat Onset/Context/Timing Onset: Days Context: Gradual Onset Current Severity: Mild Maximum Severity: Mild Narrative Narrative: 56-year-old female history of anxiety, depression and irritable bowel. Prior thyroid ablation. States that she has had a sore throat for around 6 days. Saw her primary care physician for a virtual visit than in person. They did testing at the [facility] which was unremarkable. They did an negative mono test. She has been on Augmentin 875 twice daily for 4 to 5 days. States she has had no really significant improvement. Denies any fever. No trouble swallowing or breathing. Prior similar symptoms: Yes Recent Illness/Hospitalization: No ROS ROS ED ROS Narrative Sore throat. Review of Systems ROS Unobtainable: Denies due to encephalopathy Constitutional Constitutional ED: Denies chills or fever(s) Eyes Eyes: Denies blurry vision ENT ENT ED: Reports sore throat; Denies ear pain or rhinorrhea Cardiovascular Cardiovascular: Denies chest pain or palpitations Respiratory/Chest Respiratory/Chest: Denies cough or dyspnea Gastrointestinal Gastrointestinal: Denies abdominal pain, diarrhea, melena, nausea or vomiting Genitourinary Genitourinary ED: Denies dysuria Musculoskeletal Musculoskeletal: Denies arthralgias Integumentary Denies abscess Neurologic Neurologic: Denies headache(s) Psychiatric Psychiatric: Denies anxiety Endocrine Endocrinology: Denies cold intolerance Hematologic/Lymphatic Hematologic/Lymphatic: Denies easy bleeding Allergic/Immunologic Allergic/Immunologic ED: Denies mouth swelling or tongue swelling PFSH PFS Medical History Anxiety Dominguez's cyst of knee Cholecystectomy planned Depression Essential hypertension GERD (gastroesophageal reflux disease) Hypertension Hyperthyroidism IBS (irritable bowel syndrome) Lumbar degenerative disc disease Meniere disease Paroxysmal SVT (supraventricular tachycardia) Pre-diabetes Premature atrial contractions Premature ventricular contraction Sinus tachycardia Swine flu Tobacco abuse Vitamin D deficiency Home Medications levothyroxine 150 mcg tablet 150 mcg PO DAILY 06/24/21 [History Last Taken Unknown] estradiol 0.025 mg/24 hr semiweekly transdermal patch 1.5 patch transdermal .QOD 12/11/21 [History Last Taken Unknown] ibuprofen 200 mg tablet 400 mg PO Q6H PRN 12/30/21 [History Last Taken Unknown] albuterol sulfate 90 mcg/actuation aerosol inhaler (Ventolin HFA) 2 puff inhalation Q4H PRN PRN Wheezing #1 device 02/15/22 [Rx Last Taken Unknown] promethazine 6.25 mg-codeine 10 mg/5 mL syrup 5 ml PO 4X/DAY PRN PRN cough 7 days #140 mL 02/15/22 [Rx Last Taken Unknown] Allergy/AdvReac Type Severity Reaction Status Date / Time codeine Allergy Rash Verified 12/11/21 10:46 hydrocodone bitartrate Allergy Rash Verified 12/11/21 10:46 [From Vicodin] methimazole [From Tapazole] Allergy Shortness Verified 12/11/21 10:46 of breath famotidine [From Pepcid] AdvReac Unknown Unknown Verified 12/11/21 10:46 estradiol [From CombiPatch] AdvReac myalgias, Verified 12/11/21 10:46 lip/mouth burn, SOB, nausea, dizziness methylprednisolone sodium AdvReac Other Verified 12/11/21 10:46 succinate [From Solu-Medrol] norethindrone AdvReac myalgias, Verified 12/11/21 10:46 [From CombiPatch] lip/mouth burn, SOB, nausea, dizziness oxycodone HCl [From Percocet] AdvReac Nausea/Vom/ Verified 12/11/21 10:46 Diarrhea cyp 2019 AdvReac Intermediate unknown Uncoded 12/11/21 10:46 CYP2B6 AdvReac Unknown unknown Uncoded 12/11/21 10:46 Family History Father CAD (coronary artery disease) Hypertension Myocardial infarction, Onset Age: 66 Hx of CABG Surgical History History of cholecystectomy History of left oophorectomy History of tubal ligation Social History Smoking Status: Current every day smoker tobacco type: cigarettes alcohol intake: never substance use type: does not use caffeine: No EXAM Physical Exam Narrative Exam Narrative: Well-appearing 56-year-old female. Vital signs are stable afebrile. Pulse ox 99% on room air no hypoxia. H EENT exam is completely unremarkable. TMs are normal bilaterally. At worst there is minimal erythema in the posterior pharynx. Her tonsils are not large at all in fact I do not even see them. There is no exudate. No peritonsillar abscess. No trouble swallowing or breathing. No swelling or foreign bodies. Neck there is no lymphadenopathy. No significant tenderness. No mass. Trachea midline. Lungs are clear. Heart regular rhythm no murmur. Abdomen soft nontender. Otherwise exam unremarkable. Const Vital Signs: 06/19/22 23:34 06/19/22 23:38 Temperature 97.5 F L Temperature Source Temporal Pulse Rate 98 Respiratory Rate 17 Blood Pressure 146/95 H Blood Pressure Mean 112 Pulse Ox 99 98 Oxygen Delivery Method Room Air Room Air Positive well nourished and well developed; Negative for cachectic or contractures General Appearance ED: well developed and NAD; Negative for cachectic, contractures, cyanotic, diaphoretic or pallor Nutritional Appearance: Negative for cachectic HEENT Reports moist mucous membranes; Denies dry mucous membranes normocephalic and atraumatic; Negative for scalp tenderness Face and Sinus: Negative for sinus tenderness Mouth ED: No dry mucous membranes Mouth: No dry mucous membranes Teeth and Gingiva: Negative for caries Throat: posterior oropharynx abnormal Positive for erythema; Negative for posterior oropharynx normal or tonsils abnormal Eyes PERRL and EOMs intact bilaterally General Eye ED: Negative for pale conjunctiva, scleral icterus or other Neck no lymphadenopathy, supple, no meningeal signs and no JVD General: Negative for anterior neck swelling or lymphadenopathy Resp normal respiratory effort and clear to auscultation bilaterally Effort and Inspection: Negative for retractions Auscultation: Negative for rales, rhonchi or wheezes Cardio S1 normal heart sound, S2 normal heart sound and no murmurs Rate: regular rate Rhythm: regular rhythm GI non-tender, non-distended and no masses Inspection: Negative for abdominal distention Auscultation: normoactive bowel sounds Palpation: soft; Negative for tender or guarding Back/Spine no CVA tenderness and normal ROM General Back: Negative for CVA tenderness Cervical Spine: Negative for cervical spine tenderness Thoracic Spine / Upper Back: Negative for thoracic spinal tenderness Lumbar Spine / Lower Back: Negative for lumbar spinal tenderness Sacrum: Negative for tenderness Extremity normal to inspection and full ROM General Extremety ED: Negative for cyanosis or tenderness General Extremity: Negative for cyanosis Neuro oriented x3, CN's II-XII intact bilaterally and no sensory deficits noted Sensorium / Orientation: alert, oriented to person, oriented to place and oriented to time; Negative for orientation impaired, lethargic or stuporous Motor Exam: strength 5/5 throughout Psych mental status grossly normal Appearance: Negative for other Attitude: No agitated Mood & Affect: Negative for depressed, anxious or tearful Skin General Skin Exam: Negative for jaundice or pallor Lesions: no lesions Rashes: no rashes Trauma: Negative for abrasion or laceration MDM MDM MDM Narrative Medical decision making narrative: 56-year-old with sore throat. Currently on amoxicillin twice daily. Exam is benign. There is no signs of peritonsillar abscess. There is no tonsillar swelling. There is no exudate. No trouble swallowing or breathing. No lymphadenopathy. No testing to do an emergency department. She had recent labs done with the [facility] and a negative Monospot test and clinically this does not appear to be mononucleosis she has no lymphadenopathy. She will be discharged home. Symptomatic treatment. Continue antibiotics. Follow-up with primary care physician if not improving she may need referral to an ENT for further evaluation possible scope. Discharge Plan Triage Chief Complaint: Sore Throat ED Provider: Gerhard Herrera Dx/Rx/DC Orders Clinical Impression: Pharyngitis Instructions: When You Have a Sore Throat Prescriptions: No Action levothyroxine 150 mcg tablet 150 mcg PO DAILY estradiol 0.025 mg/24 hr patch semiweekly 1.5 patch transdermal .QOD ibuprofen 200 mg tablet 400 mg PO Q6H PRN albuterol sulfate [Ventolin HFA] 90 mcg/actuation HFA aerosol inhaler 2 puff inhalation Q4H PRN PRN (Reason: Wheezing) Qty: 1 2RF promethazine-codeine 6.25-10 mg/5 mL syrup 5 ml PO 4X/DAY PRN PRN (Reason: cough) 7 Days Qty: 140 0RF Primary Care Provider: Freddy Dee Referrals: Freddy Dee MD [Primary Care Provider] - 3-5 Days if not improving Activity Restrictions/Additional Instructions: Warm salt water gargling. Chloraseptic spray. Motrin Tylenol for pain. Continue your current antibiotic as prescribed. Finish the prescription. Follow-up with your doctor if not improving. If you are not improving he may have to get an ear nose and throat doctor involved to look down your throat with a scope. Tonight there is nothing remarkable with your exam. Disposition Disposition: Home, Self Care
[2022-06-20 00:13] VITALS: PULSE 80; RESP 15; O2SAT 97
== END 2022-06-20 00:14 | disposition home or self-care (01) ==
LOC: ED 06-20 00:03
PROVIDERS: Emergency Provider Emergency Medicine; PCP Family Medicine; Visit Provider Emergency Medicine
DX: J02.9 Acute pharyngitis, unspecified (principal); I10 Essential (primary) hypertension
CPT/HCPCS: 99283

== ENCOUNTER → 2022-08-03 | Outpatient (CLI) | payer MEDICAID, SELFPAY ==
[2022-08-03 17:08] LABS: Absolute Lymphocyte Count 4.17 X10^3/uL (0.83-4.51); Absolute Neutrophil Count 5.4 X10^3/uL (2.0-7.7); Basophil# 0.07 X10^3/uL; Basophil% 0.6 % (0-1); Eosinophil# 0.21 X10^3/uL; Eosinophils% 1.9 % (0-5); Hematocrit 47.6 % (37-47); Hemoglobin 15.7 g/dL (12.0-15.0); Lymphocyte # 4.17 X10^3/ul (0.83-4.51); Mean Corpuscular Hgb 32.3 pg (27.0-32.0); Mean Corpuscular Volume 97.9 fL (81-99); Mean Platelet Vol. 9.7 fl (6.2-12.0); Monocyte% 9.1 % (0-10); NRBC Flagged by Analyzer 0 % (0-5); Neutrophil # 5.44 X10^3/uL (2.7-7.7); Neutrophil % 49.7 % (47-70); Platelet Count 295 K/mm3 (150-450); RBC Distribution Width CV 12.8 % (11.6-14.6); RBC Distribution Width SD 45.9 fl (35.1-43.9); Red Blood Count 4.86 M/mm3 (4.2-5.4)
[2022-08-03 18:26] LABS: ALB/GLOB Ratio 0.9 RATIO (0.9-2.4); AST(SGOT) 38 U/L (15-37); Alanine Aminotransfer ALT/SGPT 62 U/L (13-56); Albumin, Serum 3.6 g/dL (3.2-5.0); Alkaline Phosphatase 77 U/L (45-117); Anion Gap 1 (5-15); BUN 9 mg/dL (7-18); BUN/Creat Ratio 10.4 RATIO (10-20); Calcium,Total 9.1 mg/dL (8.5-10.1); Chloride 108 mmol/L (98-107); Creatinine, Serum 0.87 mg/dL (0.55-1.02); EST Glomerular Filtration Rate 72 mL/min (>60); Est Glom Filt Rate - Afr Amer 87 mL/min (>60); Ferritin 194 ng/mL (8-252); Free T3 2.7 pg/mL (2.18-3.98); Globulin 3.9 g/dL (2.2-4.2); Glucose 93 mg/dL (74-106); Potassium 4.4 mmol/L (3.5-5.1); Protein, Total 7.5 g/dL (6.4-8.2); Sodium Level 137 mmol/L (136-145); T4 Free Direct 1.23 ng/dL (0.76-1.46); Thyroid Stim Hormone (TSH) 0.61 uIU/mL (0.358-3.74)
== END | disposition home or self-care (01) ==
PROVIDERS: PCP Family Medicine
DX: L64.8 Other androgenic alopecia (principal)
CPT/HCPCS: 36415; 80053; 82728; 84439; 84443; 84481; 85025

== ENCOUNTER 2022-08-16 15:04 | Emergency (ER) | payer MEDICAID, SELFPAY ==
[2022-08-16 15:05] VITALS: BP 155/117; PULSE 153; RESP 18; TEMP 36.4; O2SAT 98; BMI 39.9
--- NOTE | 2022-08-16 15:15 | EKG12_ITS ---
Test Reason : Blood Pressure : / mmHG Vent. Rate : 127 BPM Atrial Rate : 127 BPM P-R Int : 132 ms QRS Dur : 084 ms QT Int : 304 ms P-R-T Axes : 060 080 037 degrees QTc Int : 441 [address] abnormality Abnormal ECG Confirmed by ARYA HARRIS, JUAN ([id number]), medical transcription editor DAVIDSON HENDRICKS ([id number]) on 08/17/2022 11:40:38 AM Referred By: KAYLYN Confirmed By:JUAN KOENIG MD
[2022-08-16 15:19] VITALS: BP 150/82; PULSE 115; RESP 17; TEMP 36.9; O2SAT 96; O2SAT 98
--- NOTE | 2022-08-16 15:35 | EX.ED.DYSGE1 ---
HPI History of Present Illness Chief Complaint: General Illness Informant: patient Onset/Context/Timing Onset: Days Context: Gradual Onset Timing: Continuous Current Severity: Mild Maximum Severity: Mild Narrative Narrative: 86-year-old female past medical history of prediabetic. States on Wednesday she was not feeling well. Developed nausea and has since developed diarrhea but no vomiting. No fever. Says really no significant cough. She feels like she may be a little dehydrated. Denies any dysuria. She had some atypical nonexertional chest discomfort but she said that resolved and thought it may be costochondritis. Said now multiple people in her family have similar symptoms. States she is having diffuse abdominal pain. Prior similar symptoms: Yes Recent Illness/Hospitalization: No PFSH PFSH Medical History Anxiety Dominguez's cyst of knee Cholecystectomy planned Depression Essential hypertension GERD (gastroesophageal reflux disease) Hypertension Hyperthyroidism IBS (irritable bowel syndrome) Lumbar degenerative disc disease Meniere disease Paroxysmal SVT (supraventricular tachycardia) Pre-diabetes Premature atrial contractions Premature ventricular contraction Sinus tachycardia Swine flu Tobacco abuse Vitamin D deficiency Home Medications levothyroxine 150 mcg tablet (Synthroid) 150 mcg PO DAILY 06/24/21 [History Last Taken Unknown] ibuprofen 200 mg tablet 400 mg PO Q6H PRN Pain 12/30/21 [History Last Taken Unknown] albuterol sulfate 90 mcg/actuation aerosol inhaler (Ventolin HFA) 2 puff inhalation Q4H PRN PRN Wheezing #1 device 02/15/22 [Rx Last Taken Unknown] ondansetron 4 mg disintegrating tablet 4 mg PO Q6H PRN nausea and vomiting #10 tabs 08/16/22 [Rx Last Taken Unknown] Allergy/AdvReac Type Severity Reaction Status Date / Time codeine Allergy Rash Verified 08/16/22 15:13 hydrocodone bitartrate Allergy Rash Verified 08/16/22 15:13 [From Vicodin] methimazole [From Tapazole] Allergy Shortness Verified 08/16/22 15:13 of breath famotidine [From Pepcid] AdvReac Unknown Unknown Verified 08/16/22 15:13 estradiol [From CombiPatch] AdvReac myalgias, Verified 08/16/22 15:13 lip/mouth burn, SOB, nausea, dizziness methylprednisolone sodium AdvReac Other Verified 08/16/22 15:13 succinate [From Solu-Medrol] norethindrone AdvReac myalgias, Verified 08/16/22 15:13 [From CombiPatch] lip/mouth burn, SOB, nausea, dizziness oxycodone HCl [From Percocet] AdvReac Nausea/Vom/ Verified 08/16/22 15:13 Diarrhea cyp 2019 AdvReac Intermediate unknown Uncoded 08/16/22 15:13 CYP2B6 AdvReac Unknown unknown Uncoded 08/16/22 15:13 Family History Father CAD (coronary artery disease) Hypertension Myocardial infarction, Onset Age: 66 Hx of CABG Surgical History History of cholecystectomy History of left oophorectomy History of tubal ligation Social History Smoking Status: Current every day smoker tobacco type: cigarettes alcohol intake: never substance use type: does not use caffeine: No ROS ROS ED ROS Narrative Nausea, diarrhea and general malaise. Review of Systems ROS Unobtainable: Denies due to encephalopathy Constitutional Constitutional ED: Denies chills or fever(s) Eyes Eyes: Denies blurry vision ENT ENT ED: Denies ear pain Cardiovascular Cardiovascular: Denies chest pain Respiratory/Chest Respiratory/Chest: Denies cough Gastrointestinal Gastrointestinal: Reports abdominal pain, diarrhea and nausea; Denies constipation, melena or vomiting Genitourinary Genitourinary ED: Denies dysuria or hematuria Musculoskeletal Musculoskeletal: Denies arthralgias Integumentary Denies abscess Neurologic Neurologic: Denies headache(s) Psychiatric Psychiatric: Denies anxiety or depression Endocrine Endocrinology: Denies cold intolerance Hematologic/Lymphatic Hematologic/Lymphatic: Reports none Allergic/Immunologic Allergic/Immunologic ED: Reports mouth swelling and tongue swelling EXAM Physical Exam Narrative Exam Narrative: For 6-year-old female vital signs initial blood pressure 155/117 pulse of 153. Pulse ox 90% on room air. She does not look septic or toxic. Mildly dehydrated. HEENT exam unremarkable other than her tongue is purple from Gatorade she just drank. Neck nontender. Lungs are clear equal symmetrical. Heart tachycardic rate about 120. No murmur. Abdomen diffusely tender but no peritoneal signs. Nondistended. No localizing right upper or right lower quadrant tenderness no hernia or mass or signs of obstruction. Back nontender. Moving all 4 extremities. Nontender no edema. Neurologically she is awake and alert. Const Vital Signs: 08/16/22 15:05 08/16/22 15:15 08/16/22 15:19 Temperature 97.5 F L 98.5 F Temperature Source Temporal Oral Pulse Rate 153 H 115 H Respiratory Rate 18 17 Respiratory Effort Short of Breath Respiratory Pattern Tachypnea Blood Pressure 155/117 H 150/82 H Blood Pressure Mean 129 104 Pulse Ox 98 96 Oxygen Delivery Method Room Air Room Air 08/16/22 15:19 08/16/22 16:16 08/16/22 17:04 Temperature 98.5 F 98.3 F Temperature Source Oral Oral Pulse Rate 115 H 112 H 113 H Respiratory Rate 17 17 21 H Respiratory Effort Respiratory Pattern Blood Pressure 150/82 H 136/84 H 121/70 H Blood Pressure Mean 104 101 87 Pulse Ox 98 94 94 Oxygen Delivery Method Room Air Room Air Room Air Positive well nourished and well developed; Negative for cachectic, contractures or unkempt General Appearance ED: well developed and NAD; Negative for unkempt, cachectic, contractures, cyanotic, diaphoretic or pallor Nutritional Appearance: Negative for cachectic HEENT Reports dry mucous membranes Negative for trauma or tenderness Mouth ED: Yes dry mucous membranes Mouth: dry mucous membranes Eyes PERRL and EOMs intact bilaterally Neck no lymphadenopathy, supple and no JVD General: Negative for tenderness Lymph Lymphatic: Negative for other Chest Wall inspection of chest normal and palpation of chest normal Chest: Negative for other Resp normal respiratory effort and clear to auscultation bilaterally Effort and Inspection: Negative for retractions Auscultation: Negative for rales, rhonchi or wheezes Cardio regular rhythm, S1 normal heart sound, S2 normal heart sound and no murmurs; Negative for regular rate Rate: tachycardic GI non-distended and no masses; Negative for normal to inspection, nondistended, normoactive bowel sounds or non-tender Inspection: Negative for abdominal distention Auscultation: normoactive bowel sounds Palpation: soft and tender; Negative for guarding, splenomegaly, mass or rebound tenderness present Back/Spine no CVA tenderness General Back: Negative for CVA tenderness Cervical Spine: Negative for cervical spine tenderness Thoracic Spine / Upper Back: Negative for thoracic spinal tenderness Lumbar Spine / Lower Back: Negative for lumbar spinal tenderness Extremity normal to inspection General Extremety ED: Negative for edema or tenderness General Extremity: Negative for edema Neuro oriented x3 and CN's II-XII intact bilaterally Sensorium / Orientation: alert; Negative for orientation impaired, lethargic or stuporous Motor Exam: strength 5/5 throughout Psych mental status grossly normal Appearance: Negative for unkempt Attitude: No agitated Mood & Affect: Negative for depressed, anxious or tearful Skin no rashes or lesions noted and no wounds General Skin Exam: Negative for jaundice or pallor Lesions: No lesion noted Rashes: No rashes noted Trauma: Negative for abrasion Wounds: Negative for wounds noted MDM MDM MDM Narrative Medical decision making narrative: 56-year-old female most likely has a viral syndrome. COVID and flu tested. Clinically appears dehydrated she will be treated with IV fluids and Zofran. She is complaining of abdominal cramping which I think is from the diarrhea. I do not think she needs CAT scan imaging. Screening labs will be obtained. Patient treated with IV fluids. IV Zofran. Patient doing well on repeat exam. Abdomen is benign. Heart rate is improving her current heart rate is 104. Her pressure is 119/79. She is resting comfortably after a liter. Looks and feels improved. We went over her lab test which were unremarkable including her COVID and flu test. Chest x-ray and labs. History & Record Review Discussion w/independent historian: Patient Lab Data Attestation: I reviewed the patient's lab results. Lab results narrative: CBC shows white count 10.8. H&H 17.6 and 54. Platelets 287. Rapid COVID influenza negative. Electrolytes show sodium 134. Potassium 3.4. Gap is 4. Normal BUN of 7 creatinine 0.93. Glucose 136. Liver enzymes normal. Troponin normal at 4. Lipase normal at 28. TSH normal at 1.36. Urinalysis shows 5-10 red cells but no sign of infection. No nitrites and no bacteria. Chest x-ray negative. Labs: Laboratory Results - last 24 hr 08/16/22 08/16/22 08/16/22 15:15 15:15 15:15 WBC 10.8 RBC 5.53 H Hgb 17.6 H Hct 54.4 H MCV 98.4 MCH 31.8 MCHC 32.4 RDW Std Deviation 46.1 H RDW Coeff of Linette 12.6 Plt Count 287 MPV 10.0 Immature Gran % (Auto) 0.800 Neut % (Auto) 75.1 H Lymph % (Auto) 13.2 L [place] % (Auto) 9.3 Eos % (Auto) 1.1 Baso % (Auto) 0.5 Absolute Neuts (auto) 8.1 H Absolute Lymphs (auto) 1.43 Nucleated RBC % 0 Sodium 134 L Potassium 3.4 L Chloride 105 Carbon Dioxide 25.0 Anion Gap 4 L BUN 7 Creatinine 0.93 Estim Creat Clear Calc 50.97 Est GFR (MDRD) Af Amer 80 Est GFR (MDRD) Non-Af 66 BUN/Creatinine Ratio 7.5 L Glucose 136 H Calcium 9.2 Total Bilirubin 0.40 AST 49 H ALT 75 H Alkaline Phosphatase 84 Troponin I High Sens 4 Total Protein 8.2 Albumin 3.8 Globulin 4.4 H Albumin/Globulin Ratio 0.9 Lipase 28 TSH 1.36 Urine Color Urine Clarity Urine pH Ur Specific [place] Urine Protein Urine Glucose (UA) Urine Ketones Urine Occult Blood Urine Nitrite Urine Bilirubin Urine Urobilinogen Ur Leukocyte Esterase Urine RBC Urine WBC Ur Squamous Epith Cells Urine Bacteria Urine Mucus 08/16/22 15:40 WBC RBC Hgb Hct MCV MCH MCHC RDW Std Deviation RDW Coeff of Linette Plt Count MPV Immature Gran % (Auto) Neut % (Auto) Lymph % (Auto) [place] % (Auto) Eos % (Auto) Baso % (Auto) Absolute Neuts (auto) Absolute Lymphs (auto) Nucleated RBC % Sodium Potassium Chloride Carbon Dioxide Anion Gap BUN Creatinine Estim Creat Clear Calc Est GFR (MDRD) Af Amer Est GFR (MDRD) Non-Af BUN/Creatinine Ratio Glucose Calcium Total Bilirubin AST ALT Alkaline Phosphatase Troponin I High Sens Total Protein Albumin Globulin Albumin/Globulin Ratio Lipase TSH Urine Color Yellow Urine Clarity Clear Urine pH 5.0 Ur Specific [place] 1.015 Urine Protein 15 H Urine Glucose (UA) Normal Urine Ketones Negative Urine Occult Blood 250 H Urine Nitrite Negative Urine Bilirubin Negative Urine Urobilinogen Normal Ur Leukocyte Esterase 25 H Urine RBC 5-10 SEEN Urine WBC 0 SEEN Ur Squamous Epith Cells 0-5 SEEN Urine Bacteria 0 SEEN Urine Mucus 0 SEEN Radiography Chest X-Ray - ED: 1 View, Read by ED Physician, Read by Radiologist, Normal, Heart, Lungs, Mediastinum, Bony Structures, No Acute Disease and Chronic Changes Diagnostic Testing: Clinical Impression(s) from Imaging Studies Chest X-Ray 08/16/22 15:55 IMPRESSION: No acute cardiopulmonary disease or major interval change. Electronically Signed: Jarrod Ackerman DO at 16:33 EDT Reading Location ID and State: [address] [place] [address] Tel [phone], Service support , Has x-ray, portable, single view interpreted both by myself and radiology shows no acute abnormality. Normal cardiac silhouette. No infiltrates. No effusions. Rhythm Strip Rhythm Strip: Sinus Tach Rate: 127 Ectopy: None EKG Initial EKG: Attestation: I personally reviewed and interpreted this EKG as follows: Interpretation: Sinus Rhythm, No Acute Injury Pattern and Sinus Tachycardia Comments: Sinus tachycardia rate of 127 no acute signs of MT or ischemia or dysrhythmia. Discharge Plan Triage Chief Complaint: General Illness ED Provider: Gerhard Herrera Dx/Rx/DC Orders Clinical Impression: Viral syndrome, Diarrhea Clinical Impression: (Ruled Out): Left knee pain, Pre-diabetes Instructions: Treating Diarrhea, ED Viral Syndrome (Adult) Prescriptions: New ondansetron 4 mg tablet,disintegrating 4 mg PO Q6H PRN (Reason: nausea and vomiting) Qty: 10 0RF No Action levothyroxine [Synthroid] 150 mcg tablet 150 mcg PO DAILY ibuprofen 200 mg tablet 400 mg PO Q6H PRN (Reason: Pain) albuterol sulfate [Ventolin HFA] 90 mcg/actuation HFA aerosol inhaler 2 puff inhalation Q4H PRN PRN (Reason: Wheezing) Qty: 1 2RF Primary Care Provider: Freddy Dee Referrals: Freddy Dee MD [Primary Care Provider] - 1-2 Days if not improving Activity Restrictions/Additional Instructions: Plenty of fluids and rest. Increase your diet slowly as tolerated. Tylenol for fever and body aches and Motrin. Zofran as needed for nausea. If the diarrhea is not improving in 2 days start Imodium. Return if you are feeling worse or unable to keep fluids down. Disposition Disposition: Home, Self Care
[2022-08-16 15:42] LABS: Absolute Lymphocyte Count 1.43 X10^3/uL (0.83-4.51); Absolute Neutrophil Count 8.1 X10^3/uL (2.0-7.7); Basophil# 0.05 X10^3/uL; Basophil% 0.5 % (0-1); Eosinophil# 0.12 X10^3/uL; Eosinophils% 1.1 % (0-5); Hematocrit 54.4 % (37-47); Hemoglobin 17.6 g/dL (12.0-15.0); Lymphocyte # 1.43 X10^3/ul (0.83-4.51); Lymphocyte % 13.2 % (19-41); Mean Corp Hgb Conc 32.4 g/dL (32-36); Mean Corpuscular Hgb 31.8 pg (27.0-32.0); Mean Corpuscular Volume 98.4 fL (81-99); Monocyte% 9.3 % (0-10); NRBC Flagged by Analyzer 0 % (0-5); Neutrophil # 8.11 X10^3/uL (2.7-7.7); Neutrophil % 75.1 % (47-70); Platelet Count 287 K/mm3 (150-450); RBC Distribution Width CV 12.6 % (11.6-14.6); RBC Distribution Width SD 46.1 fl (35.1-43.9); Red Blood Count 5.53 M/mm3 (4.2-5.4); White Blood Count 10.8 K/mm3 (4.4-11.0)
[2022-08-16] MEDS: 0.9% Normal Saline 1,000 ML 1000 ML IV (15:47)
[2022-08-16] MEDS: Ondansetron 4 MG/2 ML Vial IV (15:48)
--- NOTE | 2022-08-16 15:55 | RAD_ITS ---
STUDY: X-RAY CHEST REASON FOR EXAM: Female, 56 years old. Shortness of breath with exertion. Palpitations. Diarrhea and headache. Body ache for 2 days. Cough. TECHNIQUE: Single AP portable view of the chest. COMPARISON: February 15, 2022 FINDINGS: The lungs are clear and expanded. There is no demonstrated pleural abnormality. Normal size heart. Normal mediastinum and ashley. Normal visualized pulmonary arteries. Normal visualized aortic arch and descending thoracic aorta. Normal visualized thoracic spine. Normal visualized ribs, clavicles, and shoulders. There is no demonstrated abnormality of the visualized soft tissue structures of the upper abdomen. RAD/Chest 1 View (Portable) IMPRESSION: No acute cardiopulmonary disease or major interval change. Electronically Signed: Jarrod Ackerman DO at 16:33 EDT ,
--- NOTE | 2022-08-16 15:55 | ED.RN ---
PT STATES SHE DOES NOT NEED ANYTHING FOR PAIN. TORADOL GIVES ME A HEADACHE AND I ALREADY HAVE A HEADACHE, TYLENOL WOULD BE FINE.
[2022-08-16 15:59] LABS: Bacteria 0 SEEN /hpf (None Seen); Mucous, Urine 0 SEEN /hpf (<or=2+); White Blood Cells 0 SEEN /hpf (0-5)
[2022-08-16 16:03] LABS: ALB/GLOB Ratio 0.9 RATIO (0.9-2.4); AST(SGOT) 49 U/L (15-37); Alanine Aminotransfer ALT/SGPT 75 U/L (13-56); Albumin, Serum 3.8 g/dL (3.2-5.0); Alkaline Phosphatase 84 U/L (45-117); Anion Gap 4 (5-15); BUN 7 mg/dL (7-18); BUN/Creat Ratio 7.5 RATIO (10-20); Calcium,Total 9.2 mg/dL (8.5-10.1); Chloride 105 mmol/L (98-107); Creatinine, Serum 0.93 mg/dL (0.55-1.02); EST Glomerular Filtration Rate 66 mL/min (>60); Est Glom Filt Rate - Afr Amer 80 mL/min (>60); Estimated Creatinine Clearance 50.97 ml/min; Globulin 4.4 g/dL (2.2-4.2); Glucose 136 mg/dL (74-106); Lipase 28 U/L (13-75); Potassium 3.4 mmol/L (3.5-5.1); Protein, Total 8.2 g/dL (6.4-8.2); Sodium Level 134 mmol/L (136-145); Troponin-I HS 4 pg/mL (3.0-54.0)
[2022-08-16 16:16] VITALS: BP 136/84; PULSE 112; RESP 17; TEMP 36.8; O2SAT 94
[2022-08-16 16:24] LABS: Color, Urine Yellow (Yellow); Glucose, Dipstick Normal (Normal); Ketone-Dipstick Negative (Negative); Leukocyte Esterase-Dipstick 25 /ul (Negative); Nitrite-Dipstick Negative (Negative); Occult Blood-Urine 250 /ul (Negative); Protein-Dipstick 15 mg/dl (Negative); Specific Gravity, Urine 1.015 (1.002-1.030); Urine Bilirubin Dipstick Negative (Negative); Urine Clarity Clear (Clear); Urine Urobilinogen Normal (Normal)
[2022-08-16 16:33] LABS: Red Blood Cells-Urine 5-10 SEEN /hpf (0-5); Squamous Epithelial Cells - UA 0-5 SEEN /hpf (5-10)
[2022-08-16 16:43] LABS: Thyroid Stim Hormone (TSH) 1.36 uIU/mL (0.358-3.74)
[2022-08-16 17:04] VITALS: BP 121/70; PULSE 113; RESP 21; O2SAT 94
[2022-08-16 18:17] VITALS: O2SAT 94
[2022-08-16 18:18] VITALS: BP 134/89; PULSE 126
== END 2022-08-16 18:44 | disposition home or self-care (01) ==
PROVIDERS: Emergency Provider Emergency Medicine; PCP Family Medicine; Visit Provider Emergency Medicine
DX: B34.9 Viral infection, unspecified (principal); R19.7 Diarrhea, unspecified; R10.9 Unspecified abdominal pain; I10 Essential (primary) hypertension; R11.0 Nausea
CPT/HCPCS: 71045; 80053; 81001; 83690; 84443; 84484; 85025; 87428; 93005; 96361; 96374; 96375; 99283; J7030; A4216; J2405

== ENCOUNTER 2023-05-27 23:04 | Emergency (ER) | payer MEDICAID, SELFPAY ==
[2023-05-27 23:05] VITALS: BP 159/97; PULSE 90; RESP 16; TEMP 36.7; O2SAT 99; BMI 40.3
--- NOTE | 2023-05-27 23:30 | EX.ED.DYSGE1 ---
HPI History of Present Illness Chief Complaint: General Illness Informant: patient Narrative Narrative: 57-year-old female presenting to the emergency room with chief complaint of cramps. Patient states she woke this morning had a cramp in her right calf. She notes some cramps in her face and her hands throughout the day. She notes a whole body tingling and burning like sensation of her skin. She denies any fever but notes that she has menopausal symptoms and is frequently very hot when others are cold. The patient states she has dry mouth but that is not new. She states that if she drinks fluid it runs right through her . This she means that she urinates shortly after drinking. She denies dysuria frequency or abnormal smell to the urine. She denies any rash. 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 Depression Essential hypertension Gastric reflux GERD (gastroesophageal reflux disease) History of echocardiogram History of hiatal hernia Hypertension Hyperthyroidism IBS (irritable bowel syndrome) Lumbar degenerative disc disease Meniere disease On home oxygen therapy Paroxysmal SVT (supraventricular tachycardia) Pre-diabetes Premature atrial contractions Premature ventricular contraction Sinus tachycardia Sleep apnea Smoker Swine flu Tobacco abuse Vitamin D deficiency Wears dentures Wears glasses Home Medications levothyroxine 150 mcg tablet (Synthroid) 150 mcg PO DAILY 06/24/21 [History Last Taken Unknown] albuterol sulfate 90 mcg/actuation aerosol inhaler (Ventolin HFA) 2 puff inhalation Q4H PRN PRN Wheezing #1 device 02/15/22 [Rx Last Taken Unknown] Allergy/AdvReac Type Severity Reaction Status Date / Time codeine Allergy Rash Verified 05/27/23 23:07 hydrocodone bitartrate Allergy Rash Verified 05/27/23 23:07 [From Vicodin] methimazole [From Tapazole] Allergy Shortness Verified 05/27/23 23:07 of breath famotidine [From Pepcid] AdvReac Unknown Unknown Verified 05/27/23 23:07 estradiol [From CombiPatch] AdvReac myalgias, Verified 05/27/23 23:07 lip/mouth burn, SOB, nausea, dizziness methylprednisolone sodium AdvReac Other Verified 05/27/23 23:07 succinate [From Solu-Medrol] norethindrone AdvReac myalgias, Verified 05/27/23 23:07 [From CombiPatch] lip/mouth burn, SOB, nausea, dizziness oxycodone HCl [From Percocet] AdvReac Nausea/Vom/ Verified 05/27/23 23:07 Diarrhea cyp 2019 AdvReac Intermediate unknown Uncoded 08/16/22 15:13 CYP2B6 AdvReac Unknown unknown Uncoded 08/16/22 15:13 Family History Father CAD (coronary artery disease) Hypertension Myocardial infarction, Onset Age: 66 Hx of CABG Surgical History History of cholecystectomy History of left oophorectomy History of tubal ligation Social History Smoking Status: Current every day smoker tobacco type: cigarettes alcohol intake: never substance use type: does not use caffeine: No ROS ROS ED Constitutional Constitutional ED: Reports sweats; Denies chills, fever(s) or weight loss Eyes Eyes: Denies change in vision or diplopia ENT ENT ED: Denies ear pain, rhinorrhea or sore throat Cardiovascular Cardiovascular: Denies chest pain, orthopnea, palpitations or racing heartbeat Respiratory/Chest Respiratory/Chest: Denies cough, dyspnea or orthopnea Gastrointestinal Gastrointestinal: Denies abdominal pain, diarrhea, nausea or vomiting Genitourinary Genitourinary ED: Denies dysuria, hematuria or urinary frequency Musculoskeletal Musculoskeletal: Reports other Details: Muscle cramps see HPI ; Denies arthralgias or myalgias Integumentary Reports other Details: Tingling-like sensation of her skin and burning-like sensation ; Denies abscess or rash Neurologic Neurologic: Denies headache(s) or weakness Psychiatric Psychiatric: Denies anxiety, depression, suicidal ideation or suicidal thoughts Endocrine Endocrinology: Denies polydipsia, polyphagia or polyuria Allergic/Immunologic Allergic/Immunologic ED: Denies mouth swelling, tongue swelling or urticaria EXAM Physical Exam Const Vital Signs: 05/27/23 23:05 05/27/23 23:19 Temperature 98.0 F Temperature Source Temporal Pulse Rate 90 Respiratory Rate 16 Respiratory Effort Normal Non-Labored Respiratory Pattern Normal Blood Pressure 159/97 H Blood Pressure Mean 117 Pulse Ox 99 Oxygen Delivery Method Room Air Positive well nourished, well developed and obese General Appearance ED: well developed Nutritional Appearance: obese HEENT Reports normocephalic, head/scalp atraumatic and moist mucous membranes HEENT Narrative: Negative Chvostek's sign Eyes PERRL and EOMs intact bilaterally Neck no lymphadenopathy, supple and no JVD Resp normal respiratory effort and clear to auscultation bilaterally Cardio regular rate, regular rhythm and no murmurs GI normal to inspection, nondistended, normoactive bowel sounds and non-tender Palpation: soft Back/Spine no CVA tenderness and normal ROM Extremity normal to inspection General Extremety ED: Negative for edema General Extremity: Negative for edema Neuro oriented x3 and CN's II-XII intact bilaterally Sensorium / Orientation: alert Motor Exam: strength 5/5 throughout Psych mental status grossly normal Mood & Affect: Negative for depressed or tearful Skin no rashes or lesions noted and no wounds MDM MDM MDM Narrative Medical decision making narrative: Basic blood work was obtained. Hemoglobin 15.6 white count 10.9 and platelet count 257. Sodium 139 potassium 3.7 CO2 27 creatinine 0.75 glucose 117 TSH 2.58 magnesium 2.2 calcium 9.4. Patient does not seem to be in need of more or less levothyroxine based on the TSH. Electrolytes including magnesium potassium and sodium are within normal limits. She appears well-hydrated. At this point I do not see an obvious cause for the reported muscle spasms. She states she had 1 in her right foot while here in the department. I would encourage the patient to continue fluid hydration to follow-up with primary care if not improving return if worsening History & Record Review Discussion w/independent historian: Patient Lab Data Attestation: I reviewed the patient's lab results. Labs: Laboratory Results - last 24 hr 05/27/23 23:44 WBC 10.9 RBC 4.88 Hgb 15.6 H Hct 48.3 H MCV 99.0 MCH 32.0 MCHC 32.3 RDW Std Deviation 45.0 H RDW Coeff of Linette 12.4 Plt Count 257 MPV 9.7 Immature Gran % (Auto) 0.500 Neut % (Auto) 60.4 Lymph % (Auto) 28.2 [place] % (Auto) 8.5 Eos % (Auto) 1.7 Baso % (Auto) 0.7 Absolute Neuts (auto) 6.6 Absolute Lymphs (auto) 3.06 Nucleated RBC % 0 Sodium 139 Potassium 3.7 Chloride 108 H Carbon Dioxide 27.0 Anion Gap 4 L BUN 8 Creatinine 0.75 Estim Creat Clear Calc 88.06 Est GFR (MDRD) Af Amer 103 Est GFR (MDRD) Non-Af 85 BUN/Creatinine Ratio 10.7 Glucose 117 H Calcium 9.4 Magnesium 2.2 TSH 2.58 Discharge Plan Triage Chief Complaint: General Illness ED Provider: Noman Ye Dx/Rx/DC Orders Clinical Impression: Muscle cramps, Acquired hypothyroidism, Pre-diabetes, Paresthesias Instructions: ED Muscle Spasm, ED Paraesthesias Prescriptions: No Action levothyroxine [Synthroid] 150 mcg tablet 150 mcg PO DAILY albuterol sulfate [Ventolin HFA] 90 mcg/actuation HFA aerosol inhaler 2 puff inhalation Q4H PRN PRN (Reason: Wheezing) Qty: 1 2RF Primary Care Provider: Freddy Dee Referrals: Freddy Dee MD [Primary Care Provider] - 1-2 Days if not improving Disposition Disposition: Home, Self Care
[2023-05-27 23:51] LABS: Absolute Lymphocyte Count 3.06 X10^3/uL (0.83-4.51); Absolute Neutrophil Count 6.6 X10^3/uL (2.0-7.7); Basophil# 0.08 X10^3/uL; Basophil% 0.7 % (0-1); Eosinophil# 0.18 X10^3/uL; Eosinophils% 1.7 % (0-5); Hematocrit 48.3 % (37-47); Hemoglobin 15.6 g/dL (12.0-15.0); Lymphocyte # 3.06 X10^3/ul (0.83-4.51); Lymphocyte % 28.2 % (19-41); Mean Corp Hgb Conc 32.3 g/dL (32-36); Mean Platelet Vol. 9.7 fl (6.2-12.0); Monocyte# 0.92 X10^3/uL; Monocyte% 8.5 % (0-10); NRBC Flagged by Analyzer 0 % (0-5); Neutrophil # 6.57 X10^3/uL (2.7-7.7); Neutrophil % 60.4 % (47-70); Platelet Count 257 K/mm3 (150-450); RBC Distribution Width CV 12.4 % (11.6-14.6); Red Blood Count 4.88 M/mm3 (4.2-5.4); White Blood Count 10.9 K/mm3 (4.4-11.0)
--- OUTSIDE RECORDS SUMMARY | 2023-05-27 23:53 | XMS RPT_ITS | CCD ---
Author Name Unknown Address [address] [facility] [address] [place] [address] Organization [facility] Care Team Providers Care Extrusion Manager Name Role Phone Bryce HARRIS, Michelle Johansen Unavailable [phone] David HARRIS, Noman Gutiérrez Unavailable [phone] Zakia TOOL CHECKER, Ayan Duron Unavailable PROVIDER, UNKNOWN Unavailable Unavailable PROVIDER, UNKNOWN Unavailable Unavailable PROVIDER, UNKNOWN Unavailable Unavailable PROVIDER, UNKNOWN Unavailable Unavailable PROVIDER, UNKNOWN Unavailable Unavailable Perez Hernandez Unavailable Unavailable Freddy Dee Unavailable Unavailable FEMI DE OLIVEIRA Attending Unavailable IMCA Referring Unavailable Freddy Dee Care Unavailable TERRI DE OLIVEIRA Attending Unavailable Lucia Naidu Unavailable Unavailable Michelle Wu MD Unavailable [phone] Queenie Benites Unavailable Unavailable Freddy Dee Unavailable Unavailable Digna Rascon Unavailable Unavailable Freddy Dee MD Primary Care Provider Freddy Dee MD Primary Care Provider Freddy Dee MD Primary Care Provider Freddy Dee MD Primary Care Provider Freddy Dee MD Primary Care Provider FREDDY DEE Primary Care Unavailable FREDDY DEE Referring Unavailable FREDDY DEE Primary Care Unavailable FREDDY DEE Referring Unavailable PAUL DICK Attending Unavailable FREDDY DEE Primary Care Unavailable PAUL DICK Attending Unavailable FREDDY DEE Primary Care Unavailable FREDDY DEE Attending Unavailable FREDDY DEE Primary Care Unavailable FREDDY DEE Primary Care Unavailable FREDDY DEE Attending Unavailable FREDDY DEE Primary Care Unavailable FREDDY DEE Referring Unavailable FREDDY DEE Attending Unavailable FREDDY DEE Primary Care Unavailable PAUL DICK Referring Unavailable FREDDY DEE Primary Care Unavailable PAUL DICK Attending Unavailable FREDDY DEE Primary Care Unavailable FREDDY DEE Attending Unavailable FREDDY DEE Primary Care Unavailable FREDDY DEE Primary Care Unavailable FREDDY DEE Referring Unavailable FREDDY DEE Primary Care Unavailable FREDDY DEE Attending Unavailable PAUL DICK Attending Unavailable FREDDY DEE Primary Care Unavailable ELIJAH, FREDDY Lemons Primary Care Unavailable ELIJAH, FREDDY Lemons Attending Unavailable Allergies Allergy Classification Reported Allergen(s) Allergy Type Date of Onset Reaction(s) Facility (19 sources) acetaminophen / HYDROcodone drug allergy 11-11-19 13 [facility] Work Phone: (20 sources) codeine; Translations: [CODEINE] drug allergy 11-26-19 13 GI Upset, Vomiting [facility] Work Phone: (9 sources) estradiol / norethindrone drug allergy 01-09-20 17 Feels wired, muscles hurt, lip/mouth burn, feels like asthma flaring, nausea, dizziness [facility] Work Phone: (9 sources) famotidine drug allergy 01-09-20 17 [facility] Work Phone: [phone] (20 sources) methIMAzole drug allergy 11-26-19 13 Hives [facility] Work Phone: (9 sources) methylprednisoLONE drug allergy 01-09-20 17 Vomiting [facility] Work Phone: (19 sources) nadolol drug allergy 01-03-20 13 wheezing, chest tightness [facility] Work Phone: (20 sources) Acetaminophen / HYDROcodone; Translations: [HYDROCODONE-ACETAMIN OPHEN] Drug Allergy 07-17-19 12 Vomiting [facility] (20 sources) Acetaminophen / oxyCODONE; Translations: [OXYCODONE-ACETAMINOP HEN] Drug Allergy 07-17-19 12 Vomiting [facility] (20 sources) Famotidine; Translations: [FAMOTIDINE (PF)] Drug Allergy 07-08-19 17 Other: See Comments [facility] (20 sources) metFORMIN; Translations: [METFORMIN] Drug Allergy 10-29-19 18 Other: See Comments [facility] (20 sources) methIMAzole; Translations: [METHIMAZOLE] Drug Allergy 10-15-19 06 Hives [facility] (20 sources) METHYLPREDNISOLONE SODIUM SUCC; Translations: [METHYLPREDNISOLONE SODIUM SUCC] Propensity to adverse reactions (disorder) 01-23-20 14 Mental Status Change [facility] (13 sources) ESTRADIOL-NORETHINDRO NE ACET; Translations: [ESTRADIOL-NORETHINDR ONE ACET] Propensity to adverse reactions (disorder) 10-27-19 17 Intolerance [facility] (1 source) Acetaminophen / HYDROcodone Drug Allergy [facility] Work Phone: [phone] (1 source) Acetaminophen / oxyCODONE Drug Allergy [facility] Work Phone: [phone] (1 source) Estradiol / Norethindrone Drug Allergy Unknown [facility] Work Phone: [phone] (1 source) Famotidine Drug Allergy Unknown [facility] Work Phone: [phone] (1 source) methylPREDNISolone Drug Allergy Unknown [facility] Work Phone: [phone] (11 sources) Estradiol Drug Allergy 09-27-19 19 GI Upset [facility] (20 sources) Norethindrone; Translations: [NORETHINDRONE] Drug Allergy 09-27-19 19 GI Upset [facility] Medications Current Medications Medication Drug Class(es) Dates Sig (Normalized) Sig (Original) amoxicillin 875 mg oral tablet (4 sources) Penicillin-class Antibacterial Start: 06-15-2022 End: 06-25-2022 take 1 tablet by mouth twice daily amoxicillin (AMOXIL) 875 mg tablet Indications: Tonsillitis Take 1 tablet by mouth twice daily for 10 days. 20 tablet 0 06/15/2022 06/25/2022 Active Completed/Discontinued Medications Medication Drug Class(es) Dates Sig (Normalized) Sig (Original) [id number] 200 actuat albuterol 0.09 mg/actuat metered dose inhaler (20 sources) beta2-Adrenergic Agonist Start: 04-16-2020 take 2 puff(s) by inhalation every four hours as needed for wheezing albuterol HFA (PROVENTIL HFA) 90 mcg/actuation inhaler Inhale 2 Puffs as instructed every 4 hours as needed. NEEDED FOR SHORTNESS OF BREATH AND WHEEZING 18 g 2 04/16/2020 Active Problems Active Problems Problem Classification Problem Date Documented Da te Episodic/Chronic Abdominal pain (5 sources) Left lower quadrant pain; Translations: [Left lower quadrant pain] Episodic Acute and chronic tonsillitis (1 source) Tonsillitis; Translations: [Acute tonsillitis, unspecified] Episodic Administrative/social admission (20 sources) Finding of employment status; Translations: [Unemployment, unspecified] Onset: 2 Episodic Anxiety disorders (20 sources) Anxiety; Translations: [Panic disorder with agoraphobia] Onset: 4 07-10-2013 Chronic Attention-deficit, conduct, and disruptive behavior disorders (20 sources) Attention deficit hyperactivity disorder, combined type; Translations: [Attention-deficit hyperactivity disorder, combined type] Onset: 5 11-08-2014 Chronic Cardiac dysrhythmias (20 sources) Sinus tachycardia; Translations: [Supraventricular tachycardia] Onset: 3 01-11-2013 Chronic Cardiac dysrhythmias (20 sources) Palpitations; Translations: [Tachycardia] Onset: 3 11-10-2012 Episodic Chronic obstructive pulmonary disease and bronchiectasis (20 sources) Simple chronic bronchitis; Translations: [Simple chronic bronchitis] Onset: 8 12-01-2017 Chronic Coagulation and hemorrhagic disorders (20 sources) Heterozygous Factor V Leiden mutation; Translations: [Activated protein C resistance] Onset: 1 06-18-2020 Chronic Complications of surgical procedures or medical care (20 sources) Postprocedural hypothyroidism; Translations: [Postablative hypothyroidism] Onset: 6 04-21-2021 Chronic Conditions associated with dizziness or vertigo (3 sources) Dizziness and giddiness; Translations: [Dizziness] Onset: 8 Episodic Diabetes mellitus without complication (20 sources) Impaired glucose tolerance; Translations: [Impaired glucose tolerance (oral)] Onset: 5 04-21-2021 Episodic Diseases of white blood cells (2 sources) Leukocytosis; Translations: [Elevated white blood cell count, unspecified] Onset: 3 Chronic Esophageal disorders (20 sources) Gastroesophageal reflux disease; Translations: [Gastroesophageal reflux disease without esophagitis] Onset: 7 01-13-2017 Chronic Essential hypertension (19 sources) Hypertensive disorder; Translations: [Essential (primary) hypertension] Onset: 3 11-10-2012 Chronic Heart valve disorders (20 sources) Mitral valve prolapse; Translations: [Nonrheumatic mitral (valve) prolapse] Onset: 8 02-23-2018 Chronic Immunizations and screening for infectious disease (9 sources) Encounter for screening for human papillomavirus (HPV); Translations: [Viral screening status] Onset: 7 12-14-2016 Episodic Malaise and fatigue (20 sources) Chronic fatigue syndrome; Translations: [Chronic fatigue, unspecified] Onset: 4 07-12-2013 Chronic Malaise and fatigue (20 sources) Fatigue; Translations: [Other fatigue] Onset: 3 11-10-2012 Episodic Mood disorders (20 sources) Recurrent major depression in partial remission; Translations: [Major depressive disorder, recurrent, in partial remission] Onset: 6 07-09-2015 Chronic Nutritional deficiencies (20 sources) Vitamin D deficiency; Translations: [Vitamin D deficiency, unspecified] Onset: 4 12-12-2015 Chronic Nutritional deficiencies (1 source) Decreased vitamin D; Translations: [Low vitamin D level] Episodic Other diseases of kidney and ureters (1 source) Cyst of kidney; Translations: [Cyst of kidney, acquired] Episodic Other gastrointestinal disorders (20 sources) Irritable bowel syndrome with diarrhea; Translations: [Irritable bowel syndrome with diarrhea] Onset: 8 12-14-2017 Chronic Other lower respiratory disease (1 source) Hypoxia; Translations: [Nocturnal hypoxia] Episodic Other non-traumatic joint disorders (1 source) Multiple joint pain; Translations: [History of Polyarthralgia] Episodic Other nutritional; endocrine; and metabolic disorders (20 sources) Body mass index (BMI) 37.0-37.9, adult; Translations: [Body mass index (BMI) 32.0-32.9, adult] Onset: 4 Resolved: 5 09-28-2014 Chronic Other nutritional; endocrine; and metabolic disorders (11 sources) Body mass index (BMI) 32.0-32.9, adult; Translations: [Body mass index (BMI) 32.0-32.9, adult] Onset: 5 08-22-2014 Chronic Other nutritional; endocrine; and metabolic disorders (2 sources) Body mass index 30+ - obesity; Translations: [BMI 33.0-33.9,adult] Chronic Other nutritional; endocrine; and metabolic disorders (20 sources) CYP2B6 intermediate metabolizer; Translations: [Other specified metabolic disorders] Onset: 1 06-18-2020 Chronic Other nutritional; endocrine; and metabolic disorders (20 sources) CYP2C9 intermediate metabolizer; Translations: [Other specified metabolic disorders] Onset: 1 06-18-2020 Chronic Other nutritional; endocrine; and metabolic disorders (20 sources) [id number] rapid metabolizer; Translations: [Other specified metabolic disorders] Onset: 1 06-18-2020 Chronic Other nutritional; endocrine; and metabolic disorders (20 sources) [id number] intermediate metabolizer; Translations: [Other specified metabolic disorders] Onset: 1 06-18-2020 Chronic Other nutritional; endocrine; and metabolic disorders (1 source) Obese class II; Translations: [Obesity, unspecified] Chronic Other nutritional; endocrine; and metabolic disorders (3 sources) Other specified metabolic disorders; Translations: [CYP2B6 intermediate metabolizer (HCC)] Onset: 1 Chronic Other screening for suspected conditions (not mental disorders or infectious disease) (1 source) Endometrium thickened; Translations: [Abnormal findings on diagnostic imaging of other specified body structures] Chronic Other skin disorders (1 source) Eruption; Translations: [History of Rash] Episodic Other skin disorders (1 source) Loss of hair; Translations: [Nonscarring hair loss, unspecified] Episodic Other upper respiratory disease (1 source) Hoarse; Translations: [Dysphonia] Episodic Residual codes; unclassified (20 sources) Menopause present; Translations: [Menopausal and female climacteric states] Onset: 6 11-17-2016 Chronic Residual codes; unclassified (20 sources) Obstructive sleep apnea syndrome; Translations: [Obstructive sleep apnea (adult) (pediatric)] Onset: 0 02-26-2020 Chronic Residual codes; unclassified (20 sources) Desaturation of blood; Translations: [Idiopathic sleep related nonobstructive alveolar hypoventilation] Onset: 0 02-15-2020 Chronic Residual codes; unclassified (20 sources) Upper airway resistance syndrome; Translations: [Other sleep disorders] Onset: 0 02-15-2020 Chronic Residual codes; unclassified (1 source) Other sleep disorders; Translations: [Upper airway resistance syndrome] Onset: 0 Chronic Residual codes; unclassified (1 source) Obstructive sleep apnea (adult) (pediatric); Translations: [ANDRESSA (obstructive sleep apnea)] Onset: 3 Chronic Residual codes; unclassified (1 source) Idiopathic sleep related nonobstructive alveolar hypoventilation; Translations: [Nocturnal oxygen desaturation] Onset: 0 Chronic Residual codes; unclassified (11 sources) Edema; Translations: [Edema, unspecified] Onset: 3 11-10-2012 Episodic Residual codes; unclassified (20 sources) Tobacco use and exposure - finding; Translations: [Tobacco use] 12-13-2015 Episodic Spondylosis; intervertebral disc disorders; other back problems (1 source) Lumbar radiculopathy; Translations: [Radiculopathy, lumbar region] Episodic Substance-related disorders (19 sources) Tobacco dependence syndrome; Translations: [Nicotine dependence, unspecified, uncomplicated] Onset: 3 11-10-2012 Chronic Systemic lupus erythematosus and connective tissue disorders (20 sources) Systemic lupus erythematosus; Translations: [Keratoconjunctivitis sicca, in Sjogren's syndrome] Onset: 8 02-14-2018 Chronic Thyroid disorders (20 sources) Hyperthyroidism; Translations: [Hypothyroidism] Onset: 3 01-11-2013 Chronic Unclassified (7 sources) Gynecologic examination ; Translations: [Encounter for gynecological examination (general) (routine) with abnormal findings] Onset: 7 12-14-2016 Unclassified (7 sources) Screening for malignant neoplasm of cervix ; Translations: [Encounter for screening for malignant neoplasm of cervix] Onset: 7 12-14-2016 Unclassified (4 sources) Screening for malignant neoplasm of colon ; Translations: [Encounter for screening for malignant neoplasm of colon] Onset: 7 01-13-2017 Unclassified (6 sources) Procedure carried out on subject; Translations: [Encounter for screening for human papillomavirus (HPV)] Onset: 7 12-14-2016 Unclassified (19 sources) Hormone level - finding; Translations: [Hormone deficiency] Onset: 07-08-2020 Past or Other Problems Problem Classification Problem Date Documented Date Episodic/Chronic Abdominal pain (18 sources) Acute pain in female pelvis; Translations: [Pelvic and perineal pain] Onset: 11-27-2016 11-27-2016 Episodic Mood disorders (20 sources) Disturbance in mood; Translations: [Emotional lability] Onset: 02-27-2022 Episodic Nonspecific chest pain (20 sources) Chest pain; Translations: [Tight chest] Onset: 11-25-2012 11-25-2012 Episodic Other and unspecified benign neoplasm (20 sources) Adenoma of left adrenal gland; Translations: [Benign neoplasm of left adrenal gland] Onset: 08-25-2018 05-24-2019 Episodic Other circulatory disease (10 sources) H/O: heart disorder; Translations: [Personal history of other diseases of the circulatory system] Onset: 11-10-2012 11-10-2012 Episodic Other circulatory disease (20 sources) Elevated blood-pressure reading without diagnosis of hypertension; Translations: [Elevated blood-pressure reading, without diagnosis of hypertension] Onset: 09-06-2014 09-06-2014 Episodic Other circulatory disease (1 source) Elevated blood-pressure reading, without diagnosis of hypertension; Translations: [Blood pressure elevated without history of HTN] Onset: 09-06-2014 Episodic Other endocrine disorders (20 sources) Hormone level - finding; Translations: [Hormone deficiency] Onset: 07-08-2020 07-08-2020 Episodic Other endocrine disorders (1 source) Endocrine disorder, unspecified; Translations: [Hormone deficiency] Onset: 07-08-2020 Episodic Other lower respiratory disease (19 sources) Dyspnea; Translations: [Shortness of breath] Onset: 11-10-2012 11-10-2012 Episodic Other nervous system disorders (20 sources) Sore mouth; Translations: [Other disturbances of skin sensation] Onset: 02-16-2018 02-16-2018 Episodic Other nervous system disorders (20 sources) Burning sensation of skin; Translations: [Other disturbances of skin sensation] Onset: 02-16-2018 02-16-2018 Episodic Other nervous system disorders (20 sources) Other disturbances of skin sensation; Translations: [Other and unspecified diseases of the oral soft tissues] Onset: 02-16-2018 02-16-2018 Episodic Other screening for suspected conditions (not mental disorders or infectious disease) (20 sources) Electrocardiogram abnormal; Translations: [H/O: heart disorder] Onset: 11-10-2012 11-25-2012 Episodic Other screening for suspected conditions (not mental disorders or infectious disease) (20 sources) D-dimer above reference range; Translations: [Patient encounter status] Onset: 06-20-2018 Episodic Other skin disorders (1 source) Nonscarring hair loss, unspecified; Translations: [Hair loss] Onset: 06-17-2022 Episodic Other upper respiratory infections (2 sources) Pharyngitis; Translations: [Acute pharyngitis, unspecified] Onset: 06-17-2022 Episodic Residual codes; unclassified (20 sources) FH: Hypertension; Translations: [Edema] Onset: 11-10-2012 08-22-2014 Episodic Residual codes; unclassified (10 sources) Family history of ischemic heart disease and other diseases of the circulatory system; Translations: [Family history of ischemic heart disease and other diseases of the circulatory system] 11-20-2013 Episodic Residual codes; unclassified (20 sources) Difficulty sleeping ; Translations: [Sleep disorder, unspecified] Onset: 02-16-2018 02-16-2018 Episodic Unclassified (1 source) History of clinical finding in subject; Translations: [History of muscle pain] Unclassified (1 source) Drug therapy finding; Translations: [History of Long-term use of Plaquenil] NEGATED: Highlighted row has not occurred!Residual codes; unclassified (5 sources) Disease Episodic Results Test Name Value Interpretation Reference Range Facil ity Vital Signs Date Time Vital Sign Value Performing Clinician Zee paulson 08-06-2022 09:40-0400 Body weight 94.8 kg Freddy Dee MD Work Phone: [facility] 08-06-2022 09:40-0400 Diastolic blood pressure 82 mm[Hg] Freddy Dee MD Work Phone: [facility] 08-06-2022 09:40-0400 Heart rate 102 /min Freddy Dee MD Work Phone: [facility] 08-06-2022 09:40-0400 SaO2% (BldA) [Mass fraction] 96 % Freddy Dee MD Work Phone: [facility] 08-06-2022 09:40-0400 Systolic blood pressure 142 mm[Hg] Freddy Dee MD Work Phone: [facility] 06-17-2022 14:43-0500 Body weight 94.35 kg Freddy Dee MD Work Phone: [facility] 06-17-2022 14:43-0500 Diastolic blood pressure 78 mm[Hg] Freddy Dee MD Work Phone: [facility] 06-17-2022 14:43-0500 Heart rate 79 /min Freddy Dee MD Work Phone: [facility] 06-17-2022 14:43-0500 SaO2% (BldA) [Mass fraction] 96 % Freddy Dee MD Work Phone: [facility] 06-17-2022 14:43-0500 Systolic blood pressure 122 mm[Hg] Freddy Dee MD Work Phone: [facility] 02-20-2022 13:51-0400 Diastolic blood pressure 80 mm[Hg] Dona Podlogar MANDREL MAKER.ANIMAL ANATOMY TEACHER Work Phone: [facility] 02-20-2022 13:51-0400 Heart rate 80 /min Dona Podlogar MANDREL MAKER.ANIMAL ANATOMY TEACHER Work Phone: [facility] 02-20-2022 13:51-0400 Systolic blood pressure 132 mm[Hg] Dona Podlogar MANDREL MAKER.ANIMAL ANATOMY TEACHER Work Phone: [facility] 02-20-2022 13:29-0400 Body temperature 98.4 [degF] Doan Podlogar MANDREL MAKER.ANIMAL ANATOMY TEACHER Work Phone: [facility] 02-20-2022 13:29-0400 Body weight 95.07 kg Dona Podlogar MANDREL MAKER.ANIMAL ANATOMY TEACHER Work Phone: [facility] 02-20-2022 13:29-0400 Respiratory rate 20 /min Dona Podlogar MANDREL MAKER.ANIMAL ANATOMY TEACHER Work Phone: [facility] 02-20-2022 13:29-0400 SaO2% (BldA) [Mass fraction] 97 % Dona Podlogar MANDREL MAKER.ANIMAL ANATOMY TEACHER Work Phone: [facility] 12-31-2021 14:15-0400 Body weight 94.35 kg Freddy Dee MD Work Phone: [facility] 12-31-2021 14:15-0400 Diastolic blood pressure 82 mm[Hg] Freddy Dee MD Work Phone: [facility] 12-31-2021 14:15-0400 Heart rate 84 /min Freddy Dee MD Work Phone: [facility] 12-31-2021 14:15-0400 Systolic blood pressure 132 mm[Hg] Freddy Dee MD Work Phone: [facility] 12-23-2021 08:10-0400 Body height 159.4 cm Ofe Yoel MANDREL MAKER.ANIMAL ANATOMY TEACHER Work Phone: [facility] 12-23-2021 08:10-0400 Body weight 94.35 kg Ofe Alexander MANDREL MAKER.ANIMAL ANATOMY TEACHER Work Phone: [facility] 12-23-2021 08:10-0400 Diastolic blood pressure 72 mm[Hg] Ofe Alexander MANDREL MAKER.ANIMAL ANATOMY TEACHER Work Phone: [facility] 12-23-2021 08:10-0400 Systolic blood pressure 106 mm[Hg] Ofe Alexander MANDREL MAKER.ANIMAL ANATOMY TEACHER Work Phone: [facility] 01-13-2017 14:06-0400 BMI (Body Mass Index) 37.49 kg/m2 Noman Hernandez MD [facility] Work Phone: 01-13-2017 14:06-0400 Body Temperature 98.4 [degF] Noman Hernandez MD [facility] Work Phone: 01-13-2017 14:06-0400 BP Diastolic 77 mm[Hg] Noman Hernandez MD [facility] Work Phone: 01-13-2017 14:06-0400 BP Systolic 114 mm[Hg] Noman Hernandez MD [facility] Work Phone: 01-13-2017 14:06-0400 Height 157.48 cm Noman Hernandez MD [facility] Work Phone: 01-13-2017 14:06-0400 Pulse (Heart Rate) 95 /min Noman Hernandez MD [facility] Work Phone: 01-13-2017 14:06-0400 Respiratory Rate 18 /min Noman Hernandez MD [facility] Work Phone: 01-13-2017 14:06-0400 Weight 92.99 kg Noman Hernandez MD [facility] Work Phone: 01-08-2017 15:09-0400 Heart rate 96 /min Michelle Wu MD [facility] 01-08-2017 12:15-0400 BMI (Body Mass Index) 37.55 kg/m2 Ayan Koehler NP [facility] Work Phone: 01-08-2017 12:15-0400 BP Diastolic 82 mm[Hg] Ayan Koehler TOOL CHECKER [facility] Work Phone: 01-08-2017 12:15-0400 BP Systolic 120 mm[Hg] Ayan Koehler TOOL CHECKER [facility] Work Phone: 01-08-2017 12:15-0400 Height 157.48 cm Ayan Koehler TOOL CHECKER [facility] Work Phone: 01-08-2017 12:15-0400 Pulse (Heart Rate) 96 /min Ayan Koehler TOOL CHECKER [facility] Work Phone: 01-08-2017 12:15-0400 Respiratory Rate 20 /min Ayan Zakia TOOL CHECKER [facility] Work Phone: 01-08-2017 12:15-0400 Weight 93.13 kg Ayan Zakia TOOL CHECKER [facility] Work Phone: 12-14-2016 08:32-0400 BMI (Body Mass Index) 37.13 kg/m2 Michelle Wu MD [facility] 12-14-2016 08:32-0400 Body Temperature 97.11 [degF] Michelle Wu MD [facility] 12-14-2016 08:32-0400 Body Temperature 97.1 [degF] Michelle Wu MD [facility] 12-14-2016 08:32-0400 BP Diastolic 75 mm[Hg] Michelle Wu MD [facility] 12-14-2016 08:32-0400 BP Systolic 113 mm[Hg] Michelle Wu MD [facility] 12-14-2016 08:32-0400 Height 157.48 cm Michelle Wu MD [facility] 12-14-2016 08:32-0400 Pulse (Heart Rate) 100 /min Michelle Wu MD [facility] 12-14-2016 08:32-0400 Respiratory Rate 16 /min Michelle Wu MD [facility] 12-14-2016 08:32-0400 Weight 92.08 kg Michelle [facility] MD [facility] [place] 11-27-2016 13:09-0400 BMI (Body Mass Index) 36.58 kg/m2 Michelle Wu MD [facility] [place] 11-27-2016 13:09-0400 Body Temperature 97.8 [degF] Michelle Wu MD [facility] [place] 11-27-2016 13:09-0400 Body Temperature 97.81 [degF] Michelle Wu MD [facility] [place] 11-27-2016 13:09-0400 BP Diastolic 84 mm[Hg] Michelle Wu MD [facility] [place] 11-27-2016 13:09-0400 BP Systolic 127 mm[Hg] Michelle Wu MD [facility] [place] 11-27-2016 13:0400 Height 157.48 cm Michelle Wu MD [facility] [place] 11-27-2016 13:09-0400 Pulse (Heart Rate) 87 /min Michelle Wu MD [facility] [place] 11-27-2016 13:09-0400 Respiratory Rate 16 /min Michelle Wu MD [facility] [place] 11-27-2016 13:09-0400 Weight 90.72 kg Michelle Wu MD [facility] [place] 11-16-2016 11:51-0400 BMI (Body Mass Index) 36.94 kg/m2 [facility] Work Phone: 11-16-2016 11:51-0400 Body Temperature 98.6 [degF] [facility] Work Phone: 11-16-2016 11:51-0400 BP Diastolic 87 mm[Hg] [facility] Work Phone: 11-16-2016 11:51-0400 BP Systolic 122 mm[Hg] [facility] Work Phone: 11-16-2016 11:51-0400 Height 157.48 cm [facility] Work Phone: 11-16-2016 11:51-0400 Pulse (Heart Rate) 110 /min [facility] Work Phone: 11-16-2016 11:51-0400 Respiratory Rate 17 /min [facility] Work Phone: 11-16-2016 11:51-0400 Weight 91.63 kg [facility] Work Phone: 08-22-2014 14:44-0400 BSA (Body Surface Area) 1.83 m2 [facility] Work Phone: 11-25-2012 10:15-0400 Heart rate 413 ms Lucia [facility] Work Phone: 11-25-2012 10:15-0400 Heart rate 73 /min Lucia Naidu [facility] Work Phone: Encounters Encounter Date Encounter Type Care Provider Facility Start: 05-21-2023 End: 05-22-2023 ambulatory FREDDY DEE Facility:[facility] Start: 05-20-2023 End: 05-20-2023 ambulatory FREDDY DEE Facility:[facility] Start: 03-26-2023 End: 03-26-2023 ambulatory PAUL DICK Facility:[facility] Start: 03-26-2023 End: 03-26-2023 Office outpatient visit 25 minutes Paul Dick MD Work Phone: [facility] Procedures Date Procedure Procedure Detail Performing Clinician Start: 08-03-2022 Thyrotropin [Units/volume] in Serum or Plasma [facility] Provider Start: 07-01-2022 End: 07-01-2022 Mammography Bulk Order Provider Start: 01-02-2022 Us transvaginal Freddy Dee MD Work Phone: Start: 01-01-2022 Ct abdomen & pelvis w/contrast material Freddy Dee MD Work Phone: Start: 12-04-2019 Lipid 1996 panel - Serum or Plasma Freddy Dee MD Work Phone: Start: 06-16-2019 Mammography Freddy Dee MD Work Phone: Start: 02-15-2017 End: 02-15-2017 Dietary management education, guidance, and counseling Noman Hernandez MD Start: 02-10-2017 Colonoscopy Freddy Dee MD Work Phone: Start: 01-13-2017 End: 01-13-2017 Dietary management education, guidance, and counseling Michelle Wu MD Start: 01-13-2017 Screening for malignant neoplasm of colon Screening, colon ca Michelle Wu MD Start: 01-08-2017 End: 01-08-2017 Ecg routine ecg w/least 12 lds w/i&r Ayan Koehler NP Work Phone: Start: 01-08-2017 End: 01-08-2017 Follow Up Appt 6 months Ayan Koehler NP Work Phone: Start: 01-08-2017 End: 01-08-2017 PFM Ayan Duron Zakia TOOL CHECKER Work Phone: Start: 01-08-2017 End: 01-08-2017 Electrocardiogram, complete Ayan Duron Zakia TOOL CHECKER Work Phone: Start: 01-08-2017 End: 01-08-2017 Follow Up Appt 6 months Ayan Duron Zakia TOOL CHECKER Work Phone: Start: 01-08-2017 End: 01-08-2017 PFM Ayan uDron Zakia TOOL CHECKER Work Phone: Start: 12-14-2016 Gynecologic examination Encounter for gynecological examination (general) (routine) with abnormal findings Michelle Wu MD Start: 12-14-2016 Screening for malignant neoplasm of cervix Screening for cervical cancer Michelle Wu MD Start: 12-14-2016 Gynecologic examination Encounter for gynecological examination (general) (routine) with abnormal findings Michelle Wu MD Start: 12-14-2016 Screening for malignant neoplasm of cervix Screening for cervical cancer Michelle Wu MD Start: 11-27-2016 End: 12-21-2016 Bacteria identified in Urine by Culture Michelle Wu MD Work Phone: Start: 11-27-2016 End: 11-27-2016 Urinalysis Michelle Ramires Start: 11-27-2016 End: 12-21-2016 Urine culture, bacteria Michelle nicole MD Work Phone: Start: 08-22-2014 End: 08-22-2014 Dietary management education, guidance, and counseling Lucia Naidu Start: 08-22-2014 End: 08-23-2014 Documentation of current medications Pati Richardson PA-C Work Phone: Start: 08-22-2014 End: 08-22-2014 Follow Up Appt Other Pati cardoso PA-C Work Phone: Start: 08-22-2014 End: 08-23-2014 Smoking cessation education Pati Richardson PA-C Work Phone: Start: 08-22-2014 End: 08-23-2014 Documentation of current medications Pati Richardson PA-C Work Phone: Start: 08-22-2014 End: 08-22-2014 Follow Up Appt Other Pati cardoso PA-C Work Phone: Start: 08-22-2014 End: 08-23-2014 Smoking cessation education Pati Richardson PA-C Work Phone: Start: 11-20-2013 End: 11-20-2013 Follow Up Appt 6 months Blair Canseco MD Start: 11-20-2013 End: 11-20-2013 MM Blair Canseco MD Start: 11-20-2013 End: 11-20-2013 Follow Up Appt 6 months Blair Canseco MD Start: 11-20-2013 End: 11-20-2013 MM Blair Canseco MD Start: 05-25-2013 End: 05-25-2013 Follow Up Appt 6 months Pati bowen PA-C Work Phone: Start: 05-25-2013 End: 05-25-2013 PF Pati Richardson PA-C Work Phone: Start: 05-25-2013 End: 05-25-2013 Follow Up Appt 6 months Pati bowen PA-C Work Phone: Start: 05-25-2013 End: 05-25-2013 PF Pati Richardson PA-C Work Phone: Start: 01-11-2013 End: 05-25-2013 Follow Up Appt 3 months Pati bowen PA-C Work Phone: Start: 01-11-2013 End: 05-25-2013 PFM Pati Richardson PA-C Work Phone: Start: 01-11-2013 End: 05-25-2013 Follow Up Appt 3 months Pati bowen PA-C Work Phone: Start: 01-11-2013 End: 05-25-2013 PFM Pati Richardson PA-C Work Phone: Start: 11-25-2012 End: 11-25-2012 Ecg routine ecg w/least 12 lds w/i&r Blair Canseco MD Start: 11-25-2012 End: 12-29-2012 Echocardiography Blair Canseco MD Start: 11-25-2012 End: 11-25-2012 Follow Up Appt 6 weeks Blair Canseco MD Start: 11-25-2012 End: 11-25-2012 MMM Blair Canseco MD Start: 11-25-2012 End: 12-29-2012 Stress Echocardiogram (treadmill) Blair Canseco MD Start: 11-25-2012 End: 01-11-2013 Xtrnl mobile cv telemetry w/i&report 30 days Blair Canseco MD Start: 11-25-2012 End: 12-29-2012 Echocardiography Blair Canseco MD Start: 11-25-2012 End: 11-25-2012 Electrocardiogram, complete Blair Canseco MD Start: 11-25-2012 End: 11-25-2012 Follow Up Appt 6 weeks Blair Canseco MD Start: 11-25-2012 End: 11-25-2012 MMM Blair Canseco MD Start: 11-25-2012 End: 01-11-2013 Remote 30 day ecg rev/report Blair Canseco MD Start: 11-25-2012 End: 12-29-2012 Stress Echocardiogram (treadmill) Blair Canseco MD Oophorectomy Queenie Benites Plan of Treatment Date Care Activity Detail Author Start: 05-27-2031 PNEUMOCOCCAL (1 - PCV) PNEUMOCOCCAL (1 - PCV) [facility] Immunizations Immunization Date Immunization Notes Care Provider Fa juliannety 01-25-2018 influenza virus vacc ine, unspecified formulation Freddy Dee MD Work Phone: [facility] 01-10-2018 influenza, injectabl e, quadrivalent, contains preservative Freddy Dee MD Work Phone: [facility] Payers Date Payer Category Payer Medicaid [id number] 2022 Medicaid [id number] 2016 Medicaid [facility] MEDICAID [id number] 2016-Present [phone] [address] [place] [address] Medicaid [id number] 2016 Medicaid [id number] 1965 Unknown [id number] Unknown Social History Date Type Detail Facility Start: 08-13-2016 End: 12-23-2021 Tobacco smoking status MEIS Smokes tobacco daily [facility] History of tobacco use Cigarette Smoker [facility] Start: 08-13-2016 End: 09-22-2022 Cigarettes smoked current (pack per day) - Reported 1 [facility] Start: 08-13-2016 End: 12-23-2021 Tobacco use and exposure Smokeless tobacco non-user [facility] Start: 04-24-2021 End: 08-06-2022 Alcohol intake Current non-drinker of alcohol (finding) [facility] Start: 04-24-2021 End: 05-21-2022 History SDOH Alcohol Frequency 1 [facility] Start: 04-24-2021 History SDOH Alcohol Std Drinks 98 [facility] Start: 04-24-2021 End: 05-21-2022 History SDOH Social Connections Phone 5 [facility] Start: 04-24-2021 End: 05-21-2022 History SDOH Social Connections Membership 2 [facility] Start: 04-24-2021 History SDOH Physica l Activity MPS 3 [facility] Start: 12-08-2019 Education 17 [facility] Start: 1965 Sex Assigned At Female C [facility] Start: 12-08-2021 End: 12-31-2021 Exposure to SARS-CoV-2 (event) Not sure [facility] Start: 05-21-2022 History SDOH Alcohol Std Drinks 0 [facility] Start: 05-21-2022 End: 09-22-2022 Social connection and isolation panel [facility] Do you belong to any clubs or organizations such as jehovah's witness groups, unions, fraternal or athletic groups, or school groups? Yes [facility] Are you now , , , , never or living with a partner? [facility] Frequency of Alcohol Consumption Not on file [facility] How often do you hav e 6 or more drinks on 1 occasion? Never [facility] Do you feel stress - tense, restless, nervous, or anxious, or unable to sleep at night because your mind is troubled all the time - these days [OSQ] Very much [facility] (I/We) worried wheth er (my/our) food would run out before (I/we) got money to buy more. Never true [facility] At any time in the p ast 12 months, were you homeless or living in [facility] [including now]? No [facility] Start: 10-03-2018 Gender identity Identifies as female gender (finding) [facility] Start: 10-03-2018 Sexual orientation Heterosexual (steph knowles) [facility] How hard is it for y ou to pay for the very basics like food, housing, medical care, and heating Somewhat hard [facility] NEGATED: Highlighted row - - -[facility] Work Phone: Medical Equipment Procedure Code Equipment Code Equipment Origin al Text Equipment Identifier Dates Start: 11-01-2018 End: 01-09-2023 Functional Status Date Assessment Result Facility NEGATED: Highlighted row Functional performance Functional status health issues are not documented Disease -[facility] Work Phone: Mental Status Date Assessment Result Facility NEGATED: Highlighted row Cognitive function [Interpretation] Cognitive status health issues are not documented Disease -[facility] Work Phone: Clinical Notes 12-13-2015 to 05-20-2023 Paul Dick MD - 03/26/2023 10:14 AM Paul Madrid MD - 03/26/2023 9:39 AM ESTTelephone Encounter - Paul Dick MD - 02/18/2023 4:35 PM Freddy Esteban MD - 12/05/2022 10:10 AM EDT Note Date & Type Note Facility 05-20-2023 Note HNO ID: [id number] Author: FREDDY DEE MD Service: ? Author Type: Physician Type: Progress Notes Filed: 05/20/2023 12:10 Note Text: Patient presents with: Acute Visit HPI:This Team Access Model visit is a virtual encounter. It required patient-provider interaction for the medical decision making as documented below. Patient has elected to have a visit through distance medicine I have communicated my name and active licensure. The patient's identity and physical location were verified at the time of this visit. Either the patient or their legal financial services sales representative has been informed of the risks and benefits of -- and alternatives to -- treatment through a remote evaluation and consents to proceed with the evaluation remotely. Reviewed Dr Dick's recent notes which is an excellent description of Maribell's current hormonal issues. Has seen multiple providers, has been on multiple meds etc. She is wanting to sleep all the time. Can sleep 20 hours a day. She admits to wakening every few hours. She is still using oxygen at night. Was felt to have mild andressa. She was felt to have a need for andressa in house. Had to stop doing an in lab sleep study due to acid brash and then could not sleep. Offered repeat sleep study. She continues to have chronic gerd. Has seen surgery and gi. Has literally failed every class of acid reduction meds I have. They had discussed gastric bypass. She declines doing any surgery. Offered gi referral again. Offered to retry something. Had wanted to try axid which is one of the ones that she hs wanted to use before but was unavailable. Has been checking her sugars. Breathing is stable. Did start with a cold recently. Did do a home covid recently. Does not feel sad. We discussed that depression can be some of her issues but she has been unable to take any meds. Is not suicidal. Declines counseling. Has seen cardiology, pulmonary, endo, neuro endocrine, sleep, nurse gynecology, and genetics, gi and surgery. No new chest pain No new palpitations. No fever or chills. Bp has been good at home. Does snore a times and severely fatigued. Wants to do another home sleep test MEDICATIONS: Current Outpatient Medications Medication Sig Estradiol (ESTROGEL) 1.25 gram/actuation glpm 1 application as directed. 1 PUMP TWICE DAILY. APPLY THIN LAYER TO ARM FROM WRIST TO SHOULDER. Prior authorization will be needed. Has tried every other FDA approved treatment with side effects (see my note) drospirenone, contraceptive, (SLYND) 4 mg (28) tabet Take 1/2 pill daily. Noncontraceptive purpose. Please apply company discount, process as self-pay if insurance does not cover. Lancets lancets Test blood sugar(s) 2 times daily. Insulin: No blood sugar diagnostic (BLOOD GLUCOSE TEST) test strip Test blood sugar(s) 2 times daily. Insulin: No SYNTHROID 150 mcg tablet Take 1 tablet by mouth once daily. Except 1/2 tab Sun and Sat testosterone in versabase topical cream 1% (CPD) Apply 0.1ml to vulva twice daily CPAP Mask refitting for new mask (FFM option please), heated tubing (YULISSA). Lifetime supplies. G47.33 ANDRESSA albuterol HFA (PROVENTIL HFA) 90 mcg/actuation inhaler Inhale 2 Puffs as instructed every 4 hours as needed. NEEDED FOR SHORTNESS OF BREATH AND WHEEZING lancets (FREESTYLE LANCETS) 28 gauge misc USE FOUR TIMES DAILY DIRECTED blood sugar diagnostic (FREESTYLE TEST) test strip TEST four times a day Blood-Glucose Meter (FREESTYLE LITE METER) monitoring kit 1 Each as needed. No current facility-administered medications for this visit. ALLERGIES: ALLERGIES Allergen Reactions Codeine GI Upset, Vomiting Percocet [Oxycodone* Vomiting Solumedrol [Methylp* Mental Status Change Made her rageful Vicodin [Hydrocodon* Vomiting Metformin Other: See Comments Myalgias. Norethindrone GI Upset myalgias, lip/mouth burn, SOB, nausea, dizziness Pepcid [Famotidine * Other: See Comments Dry eyes, mouth, rash, itching, anxiety Tapazole [[place]* Hives PAST MEDICAL HISTORY Diagnosis Date Abdominal pain, chronic, right upper quadrant Asthma As a baby, then I outgrew it. Cystocele, midline 05/13/2009 Delayed emergence from anesthesia 09/27/2014 Depression Excessive or frequent menstruation Heavy periods GERD (gastroesophageal reflux disease) History of Graves' disease HSDD 10/21/2011 Hypothyroidism thyroid ablation/hypothyroid Irregular menstrual cycle Irregular periods menopause age 43 2009 in 2012 FSH 47 Moderate dysplasia of cervix 2002 Parent-child conflict 03/07/2013 Rectocele 05/13/2009 SVT (supraventricular tachycardia) (HCC) Has seen cardiology at OSH, many episodes of fast heart rate are actually sinus tachycardia Syncope 05/14/2013 -Reported that she had one episode of syncope at the OSH. -Had the episode when she stood up. -No urinary incontinence or jerking movements. -Never had syncope episode before. -Last Echo stress t (more content not included)... [facility] 03-26-2023 Note HNO ID: [id number] Author: Paul Dick MD Service: ? Author Type: Physician Type: Progress Notes Filed: 03/26/2023 10:15 AM Note Text: I spent a total of 31+ minutes on the date of the service which included preparing to see the patient, [id number] patient care, completing clinical documentation, obtaining and/or reviewing separately obtained history, counseling and educating the patient/family/caregiver, independently interpreting results (not separately reported), and communicating results to the patient/family/caregiver. My name and active licensure communicated. The patient's identity and physical location were verified at the time of this visit. Either the patient or their legal financial services sales representative has been informed of the risks and benefits of -- and alternatives to -- treatment through a remote evaluation and consents to proceed with the evaluation remotely. [facility] 03-26-2023 Note HNO ID: [id number] Author: Paul Dick MD Service: ? Author Type: Physician Type: Progress Notes Filed: 03/26/2023 10:15 AM Note Text: Virtual visit, March 26, 2023 Start review of records, labs, interim events 9:39 AM Maribell Garzon is 57 year old. I have been seeing her since 11/[address] Angelo for hormonal concerns. Has had hormonal sensitivities throughout her life, difficulty tolerating any hormonal regimens. Premenstrual profound symptoms: heart racing, dizzy, muscle tension within 12 hours prior her cycle starting. Within 2 min of bleeding starting the sxs would resolve, this would occur consistently. States essentially had been in a chair since age 50. Hx of ovarian cysts, was scheduled for surgery to have removed, she insisted on repeat ultrasound because felt that the cyst was resolved, she was right. Didn't need the surgery. However she did have left oophorectomy for benign reasons. LMP in 2009, age 42-43. Lab confirmed menopause-soon after gynecologic surgery. Since then symptoms are debilitating, disabled and cannot leave her house, difficult for her to drive. When in menopause many of the symptoms that she would experience premenstrually got much worse. Including arthralgias, told FM, she did not believe diagnosis. Anxiety was bad, tried multiple meds. Dry eyes, severe. Burning mouth (goes away completely with the ET). Brain fog. Has been seeing medical providers for multiple concerns. Is heterozygous for MTHFR mutation, never had a VTE with 6 pregnancies. Did see hematology who said can use estrogen, but prefer transdermals. She has also been dealing with hyperthyroidism. She is homebound, does get in the pool, and is outside in the garden, but not walking in the yard too much for any consistent amount of time. Got her COVID shot around 02/13 and multiple medical issues latter 2020 which she also feels impacted her hormones. 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 Discussed importance of slow adjustment of medications. We have been trying a variety of regimens as noted below, many she has not tolerated. We have been trying to get her to tolerate the E2 and P individually, though understands cannot use unopposed estrogen for prolonged periods for endometrial safety. Since was working with very small doses, I told her no more than 3 months without addition of adequate progestin. Her prior doctors were offering compounded topical progesterone with ultrasound monitoring of the endometrium-discussed ultrasound cannot rule out cancer, and transdermal compounded progestin formulations may not have adequate endometrial protection. Common themes over time include immediate symptom relief with the estrogen (mood, hair, moisture of mucous membranes), but the levels are not sustained with the typical frequency of the formulations. When she gets too much estrogen gets fluid retention under her skin (which she believes is due to estrogen drop, discussed fluid retention very common in the first 3-4 months of starting estrogen). She doesn't tolerate being without it, but can't tolerate being on it typically within 1-2 weeks, or sometimes even earlier. She felt well with high testosterone in the past (prior to her surgery). Feels the EstroGel twice daily was well-tolerated (was up to Estrogel 3 pumps a day- was tolerating, though what she has noted to be optimally tolerated in the past has varied during our different visits). At the 12/15 follow up she had noted 1/2 patch 0.25, changed every other day to the buttock instead of the abdomen has been best tolerated, with crossover 1-2 hours by leaving the older patch on. Thinks she felt best on 37.5 patch in the past. [place] that it was not enough, so on 12/15 increased to 37.5 vivelle patch utilizing her methods. Only filled a short supply of this because it is unopposed estrogen, and schedule close follow-up. On reserve discussed the idea of fill up the syringe with the biest and slowly use daily dose by increasing 0.1ml and titrating up as tolerated. At 02/14 she stated wasn't feeling better, but was actually starting to drive on the patches after 1 year of not being able to do so. We added Slynd, either 1/4 daily or 1/2 pill every other day. At 02/27/2022 follow-up Slynd 1/4 of tab daily was working well for her. Didn't like the patches though, she noted that she had EstroGel at home, and plan was to start low-dose yet frequent application, whatever minimum she tolerates slowly increased to effect. Also refilled the biest as was not clear which when she tolerated the best, spoke with our compounding pharmacy. 5 mg dose, (more content not included)... [facility] 03-26-2023 History of Present illness Narrative I spent a total of 31+ minutes on the date of the service which included preparing to see the patient, [id number] patient care, completing clinical documentation, obtaining and/or reviewing separately obtained history, counseling and educating the patient/family/caregiver, independently interpreting results (not separately reported), and communicating results to the patient/family/caregiver. My name and active licensure communicated. The patient's identity and physical location were verified at the time of this visit. Either the patient or their legal financial services sales representative has been informed of the risks and benefits of -- and alternatives to -- treatment through a remote evaluation and consents to proceed with the evaluation remotely. Virtual visit, March 26, 2023 Start review of records, labs, interim events 9:39 AM Maribell Garzon is 57 year old. I have been seeing her since 11/[address] Angelo for hormonal concerns. Has had hormonal sensitivities throughout her life, difficulty tolerating any hormonal regimens. Premenstrual profound symptoms: heart racing, dizzy, muscle tension within 12 hours prior her cycle starting. Within 2 min of bleeding starting the sxs would resolve, this would occur consistently. States essentially had been in a chair since age 50. Hx of ovarian cysts, was scheduled for surgery to have removed, she insisted on repeat ultrasound because felt that the cyst was resolved, she was right. Didn't need the surgery. However she did have left oophorectomy for benign reasons. LMP in 2009, age 42-43. Lab confirmed menopause-soon after gynecologic surgery. Since then symptoms are debilitating, disabled and cannot leave her house, difficult for her to drive. When in menopause many of the symptoms that she would experience premenstrually got much worse. Including arthralgias, told FM, she did not believe diagnosis. Anxiety was bad, tried multiple meds. Dry eyes, severe. Burning mouth (goes away completely with the ET). Brain fog. Has been seeing medical providers for multiple concerns. Is heterozygous for MTHFR mutation, never had a VTE with 6 pregnancies. Did see hematology who said can use estrogen, but prefer transdermals. She has also been dealing with hyperthyroidism. She is homebound, does get in the pool, and is outside in the garden, but not walking in the yard too much for any consistent amount of time. Got her COVID shot around 02/13 and multiple medical issues latter 2020 which she also feels impacted her hormones. 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 Discussed importance of slow adjustment of medications. We have been trying a variety of regimens as noted below, many she has not tolerated. We have been trying to get her to tolerate the E2 and P individually, though understands cannot use unopposed estrogen for prolonged periods for endometrial safety. Since was working with very small doses, I told her no more than 3 months without addition of adequate progestin. Her prior doctors were offering compounded topical progesterone with ultrasound monitoring of the endometrium-discussed ultrasound cannot rule out cancer, and transdermal compounded progestin formulations may not have adequate endometrial protection. Common themes over time include immediate symptom relief with the estrogen (mood, hair, moisture of mucous membranes), but the levels are not sustained with the typical frequency of the formulations. When she gets too much estrogen gets fluid retention under her skin (which she believes is due to estrogen drop, discussed fluid retention very common in the first 3-4 months of starting estrogen). She doesn't tolerate being without it, but can't tolerate being on it typically within 1-2 weeks, or sometimes even earlier. She felt well with high testosterone in the past (prior to her surgery). Feels the EstroGel twice daily was well-tolerated (was up to Estrogel 3 pumps a day- was tolerating, though what she has noted to be optimally tolerated in the past has varied during our different visits). At the 12/15 follow up she had noted 1/2 patch 0.25, changed every other day to the buttock instead of the abdomen has been best tolerated, with crossover 1-2 hours by leaving the older patch on. Thinks she felt best on 37.5 patch in the past. [place] that it was not enough, so on 12/15 increased to 37.5 vivelle patch utilizing her methods. Only filled a short supply of this because it is unopposed estrogen, and schedule close follow-up. On reserve discussed the idea of fill up the syringe with the biest and slowly use daily dose by increasing 0.1ml and titrating up as tolerated. At 02/14 she stated wasn't feeling better, but was actually starting to drive on the patches after 1 year of not being able to do so. We added Slynd, either 1/4 daily or 1/2 pill every other day. At 02/27/2022 follow-up Slynd 1/4 of tab daily was working well for her. Didn't like the patches though, she noted that she had EstroGel at home, and plan was to start low-dose yet frequent application, whatever minimum she tolerates slowly increased to effect. Also refilled the biest as was not clear which when she tolerated the best, spoke with our compounding pharmacy. 5 mg dose, which would be dispensed in 1 mL syringes, so that she can use 0.1-0.2 mL, 2-3 times a day as tolerated. By the time 04/16 was tolerating the 0.3 ml bid of the biest and inc to 1/2 pill of slynd (was feeling better with this dose). She was driving, and doing a lot more! Persistent HSDD and depression. Based on my calculation, she was getting approximately 1.2 mg of estradiol, as well as estriol. She was happy with the half pill of the Slynd (2 mg). Since she has always been high testosterone in the past, prior to her surgery, she felt strongly that testosterone replacement will help her best. Prescribed testosterone at low, more dilute dosing so that she can use more frequently (as she had the same issues with the crashing of hormone levels throughout the 24 hours if testosterone used once daily). Will continue to prescribe with syringes instead of metered-dose dispenser. 04/16 Rxed testosterone therapy aimed at 1 mg twice daily, and she will increase as tolerated. By the 05/18 appointment, the pharmacy couldn't get the HT for 3 wks, she was hormone free during this time, took a setback in terms of symptoms. Back on since late 04/16: dose of 0.3 ml bid for the estrogen, 1/2 of the slynd. Reminded to get mammogram (had not felt comfortable because of symptoms having the test done previously), and plans were to start testosterone when she feels ready. By 07/16 follow-up had been back on the 0.3 ml bid of the biest, 5-6 wks, continuing 1/2 pill Slynd throughout. Symptoms more manageable than with the patch. Mood was better, but not optimized. Was noticing bilateral temporal hair loss since 06/18, hadn't started the testosterone yet (will fu with derm). ........ Previously tried/offered: Depoprovera couldn't walk. OCPs multiple sxs of panic/heart racing rushing noises in ear (bathroom fan would sound like an airplane). Testosterone, progesterone only, estrogen only-fluid retention, causing reflux, asthma-like reaction-typically occurs after a few months of use Antianxiety medications-tried multiple MHT (Vivelle) estrogen patch- felt too stimulated, even on the 25mcg. Had her changing every 2-3 days. Dose was increased to 50 which helped better with sxs, but legs would swell. Tried 4-6 wks for each. feels heart racing when the estrogen seems to be dropping. Within 2 hours of coming off the patch her HR would come down. 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 Saw cards and EP- told heart is not the problem, but a symptom of what is going on. Came off after 3 days, also felt drunk and dizzy with it. After she stopped taking it states took 1 mo for the drunken dizzy sensation to go away. estrogel- did ok initially, felt Better with twice a day, but at the higher dose legs would swell. 3 wks between dose adjustments, she did not like the fact that her HR would go up when waiting 24 hours between doses (felt that she was metabolizing the estrogen quickly). Divigel start with quarter or less of the packet daily, and slowly move up to the full dose as tolerated-cost prohibitive Bi est- the best she tried in the past, she felt like it was too much. The pharmacist was managing. 3 mg E2/0.5 of E3, she didn't feel comfortable with the way the pharmacist wanted to change the dosing. She felt that it was too E2 heavy. biest 08/15 rxed from us, 1 Click 0.25 g (which we typically use for vaginal local low-dose therapy) of the cream and warehouse picker a 1 mL syringe, start with use of 0.1 mL at a time, which she can use twice daily or 3 times daily if even needed. tried for 2 days, because had difficulty with the syringe so she tried the full dose of the 1 click instead. The heart started racing and fluctuation symptoms. Estratest and NET 0.[address] Trevino- kicked up GERD which she felt pushed into an asthma attack Prometrium 100 made her feel drunk and dizzy. Tried vaginally too, but bladder spasm. compounded transdermally after 20 mg starts getting similar symptoms. Estradiol 3 days into crying for no reason (although dr Trevino's notes says this was with FemHRT) No progestin that she has been able to tolerate-however she does sleep better with the Prometrium. She was nervous about the idea of Mirena because her daughter got hives, and it took a week for someone to remove it, nervous about anything that is not patient controlled. Visit 02/15: Trouble with getting her biest estrogen on time locally, related to pharmacy staffing shortages and her insurance coverage. Ran out of the testosterone, similar problems with pharmacy due to compounding. Even family notices difference when she runs out of her hormones, asks her why she doesn't get up out of bed. She really had felt best with EstroGel 1 pump twice daily in the past, and would like to go back to that. Did the pharmacy paperwork to make formulary exception given multiple intolerances to almost every FDA-approved estrogen product in the past, as noted above. INTERIM UPDATE 03/26/2023: Still on 1/4 pill of Slynd, just received the Estrogel today (got from [facility]). PAST HISTORY (reviewed and updated): OB History T6 L6 SAB0 IAB0 Ectopic1 Multiple0 Live Births6 Comment: menarche 12 FFTP 15 menopause age 43 ACTIVE PROBLEM LIST Postablative Hypothyroidism hx of low vitamin D Panic Disorder With Agoraphobia Chronic Fatigue Fibromyalgia Syndrome Blood Pressure Elevated Without History of Htn Impaired Glucose Tolerance Svt (Supraventricular Tachycardia) Ptsd (Post-Traumatic Stress Disorder) Attention Deficit Hyperactivity [...] of Breast Estrogen Deficiency Adrenal Adenoma, Left Andressa (Obstructive Sleep Apnea) Other Chest Pain Nocturnal Oxygen Desaturation 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) Cyp2c9 Intermediate Metabolizer (Hcc) [id number] Rapid Metabolizer (Hcc) Ugt1a1 Intermediate Metabolizer (Hcc) Heterozygous Factor V Leiden Mutation (Hcc) Hormone Deficiency Not currently working due to disabled status-due to hormone deficiency Menopausal and Perimenopausal Disorder Mood Change PAST MEDICAL HISTORY Diagnosis Date Abdominal pain, chronic, right upper quadrant Asthma As a baby, then I outgrew it. Cystocele, midline 05/13/2009 Delayed emergence from anesthesia 09/27/2014 Depression Excessive or frequent menstruation Heavy periods GERD (gastroesophageal reflux disease) History of Graves' disease HSDD 10/21/2011 Hypothyroidism thyroid ablation/hypothyroid Irregular menstrual cycle Irregular periods menopause age 43 2009 in 2012 FSH 47 Moderate dysplasia of cervix 2001 Parent-child conflict 03/07/2013 Rectocele 05/13/2009 SVT (supraventricular tachycardia) ([facility]) Has seen cardiology at [facility], many episodes of fast heart rate are actually sinus tachycardia Syncope 05/14/2013 -Reported that she had one [...] systolic function is normal. EF = 63 5% (2D biplane) - The right ventricle is normal in size. Right ventricular systolic function is normal. - There are no significant valvular abnormalities. - Prior echocardiogram performed on 11/10/11 (stress echo). No significant change. - Tele Tobacco use Weight gain PAST SURGICAL HISTORY Procedure Laterality Date COLONOSCOPY 04/2017 says nl CONIZATION CERVIX W/WO D&C RPR ELTRD EXC 2001 LEEP-Cervix ESOPHAGOGASTRODUODENOSCOPY TRANSORAL DIAGNOSTIC 01/22/2014,2009 EGD LAPAROSCOPY SURG CHOLECYSTECTOMY 05/19/2011 LIG/TRNSXJ FLP TUBE ABDL/VAG APPR /BI 2003 Tubal ligation OOPHORECTOMY PARTIAL/TOTAL UNI/BI 09/2014 laparoscopic left, CW, umbilical/upper abdominal adhesions seen benign PAST SURGICAL HISTORY OF 1998 tubal PAST SURGICAL HISTORY OF 2001 thyroid ablation FAMILY HISTORY Problem Relation Age of Onset Diabetes Mother Type 2 stroke Colon Cancer Father age 64 LA Diabetes Father Type 2 Hypertension Father Coronary Artery Disease Father Hx of [place] Thyroid Sister hx of parathyroid disease/ hx of fibroids other (healthy) Brother other (healthy) Brother Allergies Daughter other (healthy) Daughter other (healthy) Son other (healthy) Son other (healthy) Son other (healthy) Son Colon Cancer Paternal Aunt x5 Colon Cancer Paternal Uncle x8 Social History Tobacco Use Smoking status: Every Day Packs/day: 1.00 Years: 20.00 Additional pack years: 0.00 Total pack years: 20.00 Types: Cigarettes Smokeless tobacco: Never Vaping Use Vaping Use: Never used Substance Use Topics Alcohol use: No Drug use: No Social History Social History Narrative She lives in [place] [id number] 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 I spoke with the genetics team, relevant info in 06/16 note. US 07/14: left oophorectomy, 4 mm endometrium, nl Cotesting 12/12 normal Last 10 Encounter BP Readings: Date: BP: 08/06/2022 142/82 06/17/2022 122/78 02/20/2022 132/80 12/31/2021 132/82 12/23/2021 106/72 04/24/2021 165/95 07/16/2020 108/62 07/12/2020 124/90 05/14/2020 142/86 03/04/2020 136/86 Lab Results Component Value Date TSH 1.060 10/02/2022 TSH 0.61 08/03/2022 TSH 1.580 05/25/2022 TSH 0.856 12/30/2021 TSH 0.685 08/01/2021 TSH 0.840 05/26/2021 B12 506 07/16/2020 B12 483 09/06/2019 B12 576 03/22/2019 B12 683 12/01/2017 B12 622 01/27/2017 B12 453 06/10/2015 VITD25 35.8 08/01/2021 VITD25 16.2 (L) 05/26/2021 VITD25 17.2 (L) 05/20/2020 VITD25 20.7 (L) 06/15/2019 VITD25 29.5 (L) 05/17/2018 VITD25 37.2 11/10/2017 HB 15.2 10/02/2022 HB 15.6 (H) 06/17/2022 HB 15.7 (H) 05/25/2022 HB 15.6 (H) 12/31/2021 HB 15.7 (H) 04/24/2021 HB 16.0 (H) 05/20/2020 SARAY 142.0 09/06/2019 SARAY 168.8 06/23/2017 SARAY 172.8 01/27/2017 WBC 10.96 10/02/2022 WBC 11.46 (H) 06/17/2022 WBC 12.95 (H) 05/25/2022 WBC 10.49 12/31/2021 WBC 10.20 04/24/2021 WBC 10.77 05/20/2020 PLT 288 10/02/2022 PLT 298 06/17/2022 PLT 287 05/25/2022 PLT 314 12/31/2021 PLT 275 04/24/2021 PLT 309 05/20/2020 CREAT 0.78 05/25/2022 CREAT 0.83 12/31/2021 CREAT 0.72 04/24/2021 CREAT 0.77 05/20/2020 CREAT 0.79 12/04/2019 CREAT 0.72 12/19/2018 CA 9.1 05/25/2022 CA 9.9 12/31/2021 CA 9.1 04/24/2021 CA 9.1 05/20/2020 CA 9.4 12/04/2019 CA 9.6 12/19/2018 K 3.9 05/25/2022 K 4.7 12/31/2021 K 3.7 04/24/2021 K 3.9 05/20/2020 K 3.7 12/04/2019 K 4.2 12/19/2018 MG 1.8 04/24/2021 MG 1.9 05/20/2020 MG 2.1 12/19/2018 MG 2.0 03/09/2018 MG 2.2 11/10/2017 MG 2.1 01/25/2017 NA 137 05/25/2022 NA 139 12/31/2021 NA 138 04/24/2021 NA 142 05/20/2020 NA 138 12/04/2019 NA 141 12/19/2018 AST 22 05/25/2022 AST 26 12/31/2021 AST 22 04/24/2021 AST 26 05/20/2020 AST 16 12/04/2019 AST 23 03/20/2019 ALT 33 05/25/2022 ALT 41 (H) 12/31/2021 ALT 35 04/24/2021 ALT 41 (H) 05/20/2020 ALT 24 12/04/2019 ALT 32 03/20/2019 HBA1C 6.1 (H) 05/25/2022 HBA1C 5.9 (H) 12/31/2021 HBA1C 6.0 (H) 05/09/2021 HBA1C 6.0 (H) 12/11/2020 HBA1C 6.0 (H) 05/20/2020 HBA1C 6.0 (H) 12/04/2019 GLUC 143 (H) 05/25/2022 GLUC 81 12/31/2021 GLUC 154 (H) 04/24/2021 GLUC 112 (H) 05/20/2020 GLUC 141 (H) 12/04/2019 GLUC 134 (H) 12/19/2018 LDL 68 12/04/2019 LDL 81 12/10/2017 LDL 77 11/09/2016 LDL 69 10/21/2011 TG 102 12/04/2019 TG 67 12/10/2017 TG 49 11/09/2016 HDL 37 (L) 12/04/2019 HDL 34 (L) 12/10/2017 HDL 37 (L) 11/09/2016 Lab Results Component Value Date COR 34.0 06/15/2019 COR 8.2 05/02/2018 COR 29.6 09/08/2017 COR 23.8 11/21/2016 COR 19.7 10/14/2015 COR 12.7 07/11/2014 FSH 36.3 07/16/2020 FSH 37.8 11/21/2016 FSH 47.7 12/23/2012 FSH 48.7 05/12/2012 FSH 48.3 10/06/2011 FSH 8.0 08/27/2000 LH 23.5 05/12/2012 PROG 0.2 12/04/2019 PROG 0.4 09/06/2019 PROG 0.3 08/16/2019 PROG 0.6 06/15/2019 PROG 0.2 01/25/2017 PROG 0.3 08/03/2014 [id number] <25 05/20/2020 AYWJL53T <25 12/04/2019 DTKQR03T <25 09/06/2019 FFMPA25Y <25 08/16/2019 [id number] 46 07/21/2019 IJQUF16A <25 06/15/2019 SHBG 86 02/02/2023 SHBG 10/06/2011 57 Unit: nmol/L (NOTE) -- REFERENCE VALUE -- 18-144 (non-) Test performed by: [facility], [place], [place], unless otherwise specified above. TESTT 23 02/02/2023 TESTFREE 2.1 02/02/2023 TESTFREE 0.34 05/20/2020 TESTFREE 0.22 12/04/2019 TESTFREE 0.25 09/06/2019 TESTFREE 0.22 08/16/2019 TESTFREE 0.42 06/15/2019 DHEAS 22.7 (L) 06/15/2019 DHEAS 25.7 (L) 12/12/2018 DHEAS 30.8 (L) 01/03/2018 DHEAS 37.4 12/10/2017 DHEAS 32.1 (L) 09/08/2017 DHEAS 21.8 (L) 11/21/2016 Testosterone Date Value Ref Range Status 05/20/2020 31 8 - 60 ng/dL Final Comment: (NOTE) ADDITIONAL INFORMATION Testing performed by Liquid Chromatography-Tandem Mass Spectrometry (LC-MS/MS). This test was developed and its performance characteristics determined by [facility] in a manner consistent with CLIA requirements. This test has not been cleared or approved by the U.S. Food and Drug Administration. 12/04/2019 20 8 - 60 ng/dL Final Comment: (NOTE) ADDITIONAL INFORMATION Testing performed by Liquid Chromatography-Tandem Mass Spectrometry (LC-MS/MS). This test was developed and its performance characteristics determined by [facility] in a manner consistent with CLIA requirements. This test has not been cleared or approved by the U.S. Food and Drug Administration. 09/06/2019 23 8 - 60 ng/dL Final Comment: (NOTE) ADDITIONAL INFORMATION Testing performed by Liquid Chromatography-Tandem Mass Spectrometry (LC-MS/MS). This test was developed and its performance characteristics determined by [facility] in a manner consistent with CLIA requirements. This test has not been cleared or approved by the U.S. Food and Drug Administration. 08/16/2019 22 8 - 60 ng/dL Final Comment: (NOTE) ADDITIONAL INFORMATION Testing performed by Liquid Chromatography-Tandem Mass Spectrometry (LC-MS/MS). This test was developed and its performance characteristics determined by [facility] in a manner consistent with CLIA requirements. This test has not been cleared or approved by the U.S. Food and Drug Administration. 06/15/2019 30 8 - 60 ng/dL Final Comment: (NOTE) ADDITIONAL INFORMATION Testing performed by Liquid Chromatography-Tandem Mass Spectrometry (LC-MS/MS). This test was developed and its performance characteristics determined by [facility] in a manner consistent with CLIA requirements. This test has not been cleared or approved by the U.S. Food and Drug Administration. 12/12/2018 See Comment <40 ng/dL Final Comment: The total testosterone result is 20 ng/dL, the reference range of [facility] is 8 to 60 ng/dL. Disregard [facility] reference range. Interpret the result using the reference range provided by the performing laboratory. Results should not be compared to previously reported results using [facility]'s assay due to differences in methodology. Test performed by: [facility], [place], [place] Testing performed by Liquid Chromatography Tandem Mass Spectrometry. 07/27/2018 30 <40 ng/dL Final 05/17/2018 19 <40 ng/dL Final 01/03/2018 29 <40 ng/dL Final 09/08/2017 39 <40 ng/dL Final Last Bone Density No resulted procedures found. Last Screening Mammogram [facility] SCREENING Exam End: 07/01/2022 2:50 PM (Final result) Narrative: * * *Final Report* * * DATE OF EXAM: Jul 01 2022 2:50PM [id number] - [facility] SCREENING / PROCEDURE REASON: Encounter for screening mammogram for breast cancer * * * * Physician Interpretation * * * * RESULT: #[id number] - [facility] SCREENING BILATERAL DIGITAL SCREENING MAMMOGRAM WITH CAD: 07/01/2022 HISTORY: Encounter For Screening Mammogram For Breast Cancer. RESULT: TECHNIQUE: The study was acquired using full field digital technology and interpreted from soft copy. Current study was also evaluated with a Computer Aided Detection (CAD). Comparison is made to exams dated: 06/16/2019 mammogram and 12/24/2015 mammogram - [facility]. There are scattered fibroglandular elements in both breasts. No significant masses, calcifications, or other findings are seen in either breast. There has been no significant interval change. Impression: IMPRESSION: NEGATIVE There is no mammographic evidence of malignancy. A 1 year screening mammogram is recommended. The exam was reviewed by a staff physician. Ruslan Evans M.D. rs,michael/mahamed:07/01/2022 15:25:18 Pharmacy Customer Care Specialist(s): RT Hudson(R)(M), [facility] letter sent: Normal over 40 Mammogram BI-RADS: 1 Negative Multiple national specialty organizations have released breast cancer screening guidelines for women at average risk for developing breast cancer - guidelines that are based on both evidence and opinion, yet differ on when to start and how often to screen for breast cancer. With representation from Breast Imaging, Internal Medicine, Women's Health, Family Medicine, and Medical/Surgical Oncology, the [facility] has carefully reviewed the data and reached the following consensus: 1) All women should engage in shared decision-making with their providers to decide when to start and how often to screen; 2) All women should have the opportunity to start screening mammography at age 40; 3) For women ages 45-55, we recommend annual screening mammograms; 4) For women ages 55 and over, we support both the transition from an annual to a biennial interval if this aligns more with patient's values and preferences, or continuation with annual screening; 5) All women should discuss with their providers when to stop screening mammograms. Watch And Clock Repair Clerk: Mahamed Transcribe Date/Time: Jul 01 2022 1:57P Dictated by: HAZEL EVANS MD This examination was interpreted and the report reviewed and electronically signed by: RUSLAN SIMONS MD on Jul 01 2022 3:25PM EST Last Diagnostic Mammogram MAMMOGRAM DIAGNOSTIC MARIA A Collected: 12/24/2015 9:54 AM (Final result) Narrative: * * *Final Report* * * DATE OF EXAM: Dec 24 2015 9:54AM [id number] - [facility] DIG DIAG CAD MARIA A - BILATERAL / PROCEDURE REASON: Mastodynia * * * * Physician Interpretation * * * * RESULT: #[id number] - [facility] DIG DIAG CAD MARIA A BILATERAL DIGITAL DIAGNOSTIC MAMMOGRAM WITH CAD: 12/24/2015 HISTORY: Mastodynia Bilateral/Palpable lump left axilla /Priors available for comparison. RESULT: TECHNIQUE: The study was acquired using full field digital technology and interpreted from soft copy. Current study was also evaluated with a Computer Aided Detection (CAD). Comparison is made to exam dated: 06/07/2013 mammogram - [facility]. There are scattered fibroglandular elements in both breasts. There are benign lymph nodes in both breasts. No significant masses, calcifications, or other findings are seen in either breast. BENIGN There is no mammographic evidence of malignancy. #[id number] - US BREAST INCL AXILLA LTD ULTRASOUND OF LEFT BREAST: 12/24/2015 RESULT: Comparison is made to exam dated: 06/07/2013 mammogram - [facility]. Ultrasound of the left breast was performed. Gibbons scale images of the real-time examination were reviewed. There is a benign 2.6 cm x 1.5 cm x 0.8 cm oval lesion in the left breast at 2 o'clock posterior depth. This oval lesion is of mixed echogenicity. This abnormality is not significantly changed. Impression: IMPRESSION: BENIGN There is no sonographic evidence of malignancy. The 2.6 cm x 1.5 cm x 0.8 cm oval lesion in the left breast most likely is a lipoma and is benign. Return to annual mammogram screening schedule is recommended. SUMMARY: No reason for the patient's pain in the LEFT breast or arm identified. No interval change. Sanjay camacho/mahamed:12/24/2015 10:46:16 Pharmacy Customer Care Specialist: Aline TAYLOR(Lisa)(Anushka), [facility] letter sent: Normal clinical eval OVERALL STUDY BIRADS: 2 Benign Watch And Clock Repair Clerk: Mahamed Transcribe Date/Time: Dec 24 2015 9:34A Dictated by: SANJAY BROWN DO This examination was interpreted and the report reviewed and electronically signed by: SANJAY BROWN DO on Dec 24 2015 10:46AM EST Last Breast Ultrasound US BREAST MARIA A Collected: 12/24/2015 10:24 AM (Final result) Narrative: * * *Final Report* * * DATE OF EXAM: Dec 24 2015 10:24AM WRU [id number] - US BREAST INCL AXILLA LTD - LEFT / PROCEDURE REASON: Mastodynia * * * * Physician Interpretation * * * * RESULT: #[id number] - [facility] DIG DIAG CAD MARIA A BILATERAL DIGITAL DIAGNOSTIC MAMMOGRAM WITH CAD: 12/24/2015 HISTORY: Mastodynia Bilateral/Palpable lump left axilla /Priors available for comparison. RESULT: TECHNIQUE: The study was acquired using full field digital technology and interpreted from soft copy. Current study was also evaluated with a Computer Aided Detection (CAD). Comparison is made to exam dated: 06/07/2013 mammogram - [facility]. There are scattered fibroglandular elements in both breasts. There are benign lymph nodes in both breasts. No significant masses, calcifications, or other findings are seen in either breast. BENIGN There is no mammographic evidence of malignancy. #[id number] - US BREAST INCL AXILLA LTD ULTRASOUND OF LEFT BREAST: 12/24/2015 RESULT: Comparison is made to exam dated: 06/07/2013 mammogram - [facility]. Ultrasound of the left breast was performed. Gibbons scale images of the real-time examination were reviewed. There is a benign 2.6 cm x 1.5 cm x 0.8 cm oval lesion in the left breast at 2 o'clock posterior depth. This oval lesion is of mixed echogenicity. This abnormality is not significantly changed. Impression: IMPRESSION: BENIGN There is no sonographic evidence of malignancy. The 2.6 cm x 1.5 cm x 0.8 cm oval lesion in the left breast most likely is a lipoma and is benign. Return to annual mammogram screening schedule is recommended. SUMMARY: No reason for the patient's pain in the LEFT breast or arm identified. No interval change. 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 She will increase her Slynd from quarter pill to half pill around the same time period. We'll determine in the future if needing to start on testosterone based on how she is feeling, which would be 1/10 of Testim (though based on recent testosterone levels limited in how far we can go with dosing). Given appointment in June to be seen in person. Understands will need in person appointment for further refills (okay to refill until the in person visit because of lots of paperwork and delays as she gets prescription from [facility] due to cost) No orders found for this visit on 03/26/23. Paul Dick MD Call if any discussed symptoms not better or worse. Note dictated using voice recognition software. documented in this encounter [facility] 02-18-2023 Miscellaneous Notes Gave rx to Dona LV: 01/27/23 Oliverio: (N95.1) Symptomatic menopausal or female climacteric states (primary encounter diagnosis) (E88.89) [id number] rapid metabolizer (HCC) (R60.9) Edema, unspecified type (R45.86) Mood change (D68.51) Heterozygous factor V Leiden mutation (HCC) Has had multiple intolerances to almost every FDA-approved estrogen product in the past, as noted above. Start EstroGel 1 pump twice daily that she has tolerated very well in the past. We will need to fill out prior authorization and possibly exemption forms-sent to local [facility] pharmacy. She has still been taking the Slynd still only quarter daily. Discussed with the increased estrogen dosing would recommend half pill daily, she is agreeable. New prescription for that sent to [facility] (pharmacy has been helping out with insurance coverage). Once she is tolerating this, ok with trying testim at 1/10 the dose for her testosterone instead-we will discuss next visit. Added in virtually 03/26, wed at 9:30. Discussed laws have changed and patients can no longer be seen virtually only, does need in person appointment once yearly, she is agreeable, we will set that up at the time of her 03/26 appointment. === Please print estrogel Rx as insurance will not cover. Please mail to patient (can give to Dona) Gisell Beard RN February 17, 2023 1:18 PM documented in this encounter [facility] 02-03-2023 Miscellaneous Notes Prior auth Initiated for estrogel through cover my meds Mondargon: [id number] Patient last name: DURAN : 1965 Patient is Diagnosed with [id number] rapid metabolizer; patient would metabolize medication to quickly the after two days it would not work. Can also not take oral medications due to having factor 5 Patient has tried: Combipatch, estradiol cream, climara and vivelle dot Gisell Beard RN February 03, 2023 10:54 AM documented in this encounter [facility] 02-02-2023 Miscellaneous Notes Reason for call: other - PA Request Provider name: Dr. Dick Additional comments: Patient calling in regards to prescription: Estradiol (ESTROGEL) 1.25 gram/actuation [facility] told patient that prior auth is required. Patient can be reached at: [phone] Recommendation: routed to nurse triage [place] Tessie Simon documented in this encounter [facility] 01-27-2023 Note HNO ID: [id number] Author: Paul Dick MD Service: ? Author Type: Physician Type: Progress Notes Filed: 01/27/2023 12:44 PM Note Text: I spent a total of 40 minutes on the date of the service which included preparing to see the patient, [id number] patient care, completing clinical documentation, obtaining and/or reviewing separately obtained history, counseling and educating the patient/family/caregiver, and ordering medications, tests, or procedures. My name and active licensure communicated. The patient's identity and physical location were verified at the time of this visit. Either the patient or their legal financial services sales representative has been informed of the risks and benefits of -- and alternatives to -- treatment through a remote evaluation and consents to proceed with the evaluation remotely. [facility] 01-27-2023 Note HNO ID: [id number] Author: Paul Dick MD Service: ? Author Type: Physician Type: Progress Notes Filed: 01/27/2023 12:44 PM Note Text: Virtual visit-scheduled January 27, 2023 Start review of records, labs, interim events 8:18 AM Maribell Garzon is a 57 year old year old female. Lung Cancer Screening due on 04/23/2017 Colorectal Cancer Screening due on 02/11/2020 Influenza Vaccine(1) due on 2022 I have been seeing her since 11/[address] Angelo for hormonal concerns. Has had hormonal sensitivities throughout her life, difficulty tolerating any hormonal regimens. Premenstrual profound symptoms: heart racing, dizzy, muscle tension within 12 hours prior her cycle starting. Within 2 min of bleeding starting the sxs would resolve, this would occur consistently. States essentially had been in a chair since age 50. Hx of ovarian cysts, was scheduled for surgery to have removed, she insisted on repeat ultrasound because felt that the cyst was resolved, she was right. Didn't need the surgery. However she did have left oophorectomy for benign reasons. LMP in 2009, age 42-43. Lab confirmed menopause-soon after gynecologic surgery. Since then symptoms are debilitating, disabled and cannot leave her house, difficult for her to drive. When in menopause many of the symptoms that she would experience premenstrually got much worse. Including arthralgias, told FM, she did not believe diagnosis. Anxiety was bad, tried multiple meds. Dry eyes, severe. Burning mouth (goes away completely with the ET). Brain fog. Has been seeing medical providers for multiple concerns. Is heterozygous for MTHFR mutation, never had a VTE with 6 pregnancies. Did see hematology who said can use estrogen, but prefer transdermals. She has also been dealing with hyperthyroidism. She is homebound, does get in the pool, and is outside in the garden, but not walking in the yard too much for any consistent amount of time. Got her COVID shot around 02/13 and multiple medical issues latter 2020 which she also feels impacted her hormones. 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 Discussed importance of slow adjustment of medications. We have been trying a variety of regimens as noted below, many she has not tolerated. We have been trying to get her to tolerate the E2 and P individually, though understands cannot use unopposed estrogen for prolonged periods for endometrial safety. Since was working with very small doses, I told her no more than 3 months without addition of adequate progestin. Her prior doctors were offering compounded topical progesterone with ultrasound monitoring of the endometrium-discussed ultrasound cannot rule out cancer, and transdermal compounded progestin formulations may not have adequate endometrial protection. Common themes over time include immediate symptom relief with the estrogen (mood, hair, moisture of mucous membranes), but the levels are not sustained with the typical frequency of the formulations. When she gets too much estrogen gets fluid retention under her skin (which she believes is due to estrogen drop, discussed fluid retention very common in the first 3-4 months of starting estrogen). She doesn't tolerate being without it, but can't tolerate being on it typically within 1-2 weeks, or sometimes even earlier. She felt well with high testosterone in the past (prior to her surgery). Feels the EstroGel twice daily was well-tolerated (was up to Estrogel 3 pumps a day- was tolerating, though what she has noted to be optimally tolerated in the past has varied during our different visits). At the 12/15 follow up she had noted 1/2 patch 0.25, changed every other day to the buttock instead of the abdomen has been best tolerated, with crossover 1-2 hours by leaving the older patch on. Thinks she felt best on 37.5 patch in the past. [place] that it was not enough, so on 12/15 increased to 37.5 vivelle patch utilizing her methods. Only filled a short supply of this because it is unopposed estrogen, and schedule close follow-up. On reserve discussed the idea of fill up the syringe with the biest and slowly use daily dose by increasing 0.1ml and titrating up as tolerated. At 02/14 she stated wasn't feeling better, but was actually starting to drive on the patches after 1 year of not being able to do so. We added Slynd, either 1/4 daily or 1/2 pill every other day. At 02/27/2022 follow-up Slynd 1/4 of tab daily was working well for her. Didn't like the patches though, she noted that she had EstroGel at home, and plan was to start low-dose yet frequent application, whatever minimum she tolerates (more content not included)... [facility] 01-08-2023 Miscellaneous Notes Patient has been identified by name and date of : Yes Last office visit in this department: 08/06/2022 RX INSTRUCTIONS: Patient aware RX will be sent to pharmacy. No need to notify patient. Patient phones requesting refills as follows: Requested Prescriptions Pending Prescriptions Disp Refills SYNTHROID 150 mcg tablet 30 tablet 11 Sig: Take 1 tablet by mouth once daily. Except 1/2 tab Sun and Sat Please review and advise. Margarita Ceja documented in this encounter [facility] 12-11-2022 Miscellaneous Notes Shakir with [facility] calls to request most recent OV notes be faxed to [phone]. Faxed per request with confirmation fax was received. Nella Hernandez RN documented in this encounter [facility] 12-05-2022 Note HNO ID: [id number] Author: Freddy Dee MD Service: ? Author Type: Physician Type: Progress Notes Filed: 12/05/2022 10:25 AM Note Text: Patient presents with: Acute Visit HPI:This Team Access Model visit is a virtual encounter. It required patient-provider interaction for the medical decision making as documented below. Patient has elected to have a visit through distance medicine I have communicated my name and active licensure. The patient's identity and physical location were verified at the time of this visit. Either the patient or their legal financial services sales representative has been informed of the risks and benefits of -- and alternatives to -- treatment through a remote evaluation and consents to proceed with the evaluation remotely. We need a face to face for her oxygen usage. Has been using 2 L NC at for years. Has had repeated nocturnal oximetries to prove it. Has mild andressa but cannot tolerate cpap. She feels better with its use. Has had documented sleep study Has mild upper resistance syndrome as well. Uses it every night. No issues with its use. Has another nocturnal pulse ox pending. MEDICATIONS: Current Outpatient Medications Medication Sig testosterone in versabase topical cream 1% (CPD) Apply 0.1ml to vulva twice daily. (Dispense with a 1 mL syringe and jar, not MDD) SYNTHROID 150 mcg tablet Take 1 tablet by mouth once daily. Except 1/2 tab Sun and Sat drospirenone, contraceptive, (SLYND) 4 mg (28) tabet Take 1/2 pill daily. Noncontraceptive purpose. Please apply company [employer], process as self-pay if insurance does not cover. estradiol 0.01% estriol 0.01% topical cream (CPD) Apply 0.3 mL topically to arm 2 times daily (Dispense with 1 ml syringe) VIVELLE-DOT 0.0375 mg/24 hr Apply half patch, and change every other day. MD aware-patient is fast metabolizer, pt needs this sig for tolerability. 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 Insulin: No Lancets lancets Test blood sugar(s) 2 times daily. Insulin: No CPAP Mask refitting for new mask (FFM option please), heated tubing (YULISSA). Lifetime supplies. G47.33 ANDRESSA albuterol HFA (PROVENTIL HFA) 90 mcg/actuation inhaler Inhale 2 Puffs as instructed every 4 hours as needed. NEEDED FOR SHORTNESS OF BREATH AND WHEEZING lancets (FREESTYLE LANCETS) 28 gauge misc USE FOUR TIMES DAILY DIRECTED blood sugar diagnostic (FREESTYLE TEST) test strip TEST four times a day Blood-Glucose Meter (FREESTYLE LITE METER) monitoring kit 1 Each as needed. No current facility-administered medications for this visit. ALLERGIES: ALLERGIES Allergen Reactions Codeine GI Upset, Vomiting Percocet [Oxycodone* Vomiting Solumedrol [Methylp* Mental Status Change Made her rageful Vicodin [Hydrocodon* Vomiting Metformin Other: See Comments Myalgias. Norethindrone GI Upset myalgias, lip/mouth burn, SOB, nausea, dizziness Pepcid [Famotidine * Other: See Comments Dry eyes, mouth, rash, itching, anxiety Tapazole [Methimazo* Hives PAST MEDICAL HISTORY Diagnosis Date Abdominal pain, chronic, right upper quadrant Asthma As a baby, then I outgrew it. Cystocele, midline 05/13/2009 Delayed emergence from anesthesia 09/27/2014 Depression Excessive or frequent menstruation Heavy periods GERD (gastroesophageal reflux disease) History of Graves' disease HSDD 10/21/2011 Hypothyroidism thyroid ablation/hypothyroid Irregular menstrual cycle Irregular periods menopause age 43 2009 in 2012 FSH 47 Moderate dysplasia of cervix 2001 Parent-child conflict 03/07/2013 Rectocele 05/13/2009 SVT (supraventricular tachycardia) ([facility]) Has seen cardiology at [facility], many episodes of fast heart rate are actually sinus tachycardia Syncope 05/14/2013 -Reported that she had one [...] (stress echo). No significant change. - Tele Tobacco use Weight gain PAST SURGICAL HISTORY Procedure Laterality Date COLONOSCOPY 04/2017 says nl CONIZATION CERVIX W/WO DANNY RPR ELTRD EXC 2001 LEEP-Cervix ESOPHAGOGASTRODUODENOSCOPY TRANSORAL DIAGNOSTIC 01/22/2014,2009 EGD LAPAROSCOPY SURG CHOLECYSTECTOMY 05/19/2011 LIG/TRNSXJ FLP TUBE ABDL/VAG APPR UNI/BI 2003 Tubal ligation OOPHORECTOMY PARTIAL/TOTAL UNI/BI 09/2014 laparoscopic left, CW, umbilical/upper abdominal adhesions seen benign PAST SURGICAL HISTORY OF 1 (more content not included)... [facility] 12-05-2022 History of Present illness Narrative Patient presents with: Acute Visit HPI:This Team Access Model visit is a virtual encounter. It required patient-provider interaction for the medical decision making as documented below. Patient has elected to have a visit through distance medicine I have communicated my name and active licensure. The patient's identity and physical location were verified at the time of this visit. Either the patient or their legal financial services sales representative has been informed of the risks and benefits of -- and alternatives to -- treatment through a remote evaluation and consents to proceed with the evaluation remotely. We need a face to face for her oxygen usage. Has been using 2 L NC at for years. Has had repeated nocturnal oximetries to prove it. Has mild andressa but cannot tolerate cpap. She feels better with its use. Has had documented sleep study Has mild upper resistance syndrome as well. Uses it every night. No issues with its use. Has another nocturnal pulse ox pending. MEDICATIONS: Current Outpatient Medications Medication Sig testosterone in versabase topical cream 1% (CPD) Apply 0.1ml to vulva twice daily. (Dispense with a 1 mL syringe and jar, not MDD) SYNTHROID 150 mcg tablet Take 1 tablet by mouth once daily. Except 1/2 tab Sun and Sat drospirenone, contraceptive, (SLYND) 4 mg (28) tabet Take 1/2 pill daily. Noncontraceptive purpose. Please apply company discount, process as self-pay if insurance does not cover. estradiol 0.01% estriol 0.01% topical cream (CPD) Apply 0.3 mL topically to arm 2 times daily (Dispense with 1 ml syringe) VIVELLE-DOT 0.0375 mg/24 hr Apply half patch, and change every other day. MD aware-patient is fast metabolizer, pt needs this sig for tolerability. 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 Insulin: No Lancets lancets Test blood sugar(s) 2 times daily. Insulin: No CPAP Mask refitting for new mask (FFM option please), heated tubing (YULISSA). Lifetime supplies. G47.33 ANDRESSA albuterol HFA (PROVENTIL HFA) 90 mcg/actuation inhaler Inhale 2 Puffs as instructed every 4 hours as needed. NEEDED FOR SHORTNESS OF BREATH AND WHEEZING lancets (FREESTYLE LANCETS) 28 gauge misc USE FOUR TIMES DAILY DIRECTED blood sugar diagnostic (FREESTYLE TEST) test strip TEST four times a day Blood-Glucose Meter (FREESTYLE LITE METER) monitoring kit 1 Each as needed. No current facility-administered medications for this visit. ALLERGIES: ALLERGIES Allergen Reactions Codeine GI Upset, Vomiting Percocet [Oxycodone* Vomiting Solumedrol [Methylp* Mental Status Change Made her rageful Vicodin [Hydrocodon* Vomiting Metformin Other: See Comments Myalgias. Norethindrone GI Upset myalgias, lip/mouth burn, SOB, nausea, dizziness Pepcid [Famotidine * Other: See Comments Dry eyes, mouth, rash, itching, anxiety Tapazole [Methimazo* Hives PAST MEDICAL HISTORY Diagnosis Date Abdominal pain, chronic, right upper quadrant Asthma As a baby, then I outgrew it. Cystocele, midline 05/13/2009 Delayed emergence from anesthesia 09/27/2014 Depression Excessive or frequent menstruation Heavy periods GERD (gastroesophageal reflux disease) History of Graves' disease HSDD 10/21/2011 Hypothyroidism thyroid ablation/hypothyroid Irregular menstrual cycle Irregular periods menopause age 43 2009 in 2012 FSH 47 Moderate dysplasia of cervix 2001 Parent-child conflict 03/07/2013 Rectocele 05/13/2009 SVT (supraventricular tachycardia) (HCC) Has seen cardiology at [facility], many episodes of fast heart rate are actually sinus tachycardia Syncope 05/14/2013 -Reported that she had one [...] systolic function is normal. EF = 63 5% (2D biplane) - The right ventricle is normal in size. Right ventricular systolic function is normal. - There are no significant valvular abnormalities. - Prior echocardiogram performed on 11/10/11 (stress echo). No significant change. - Tele Tobacco use Weight gain PAST SURGICAL HISTORY Procedure Laterality Date COLONOSCOPY 04/2017 says nl CONIZATION CERVIX W/WO D&C RPR ELTRD EXC 2001 LEEP-Cervix ESOPHAGOGASTRODUODENOSCOPY TRANSORAL DIAGNOSTIC 01/22/2014,2009 EGD LAPAROSCOPY SURG CHOLECYSTECTOMY 05/19/2011 LIG/TRNSXJ FLP TUBE ABDL/VAG APPR UNI/BI 2004 Tubal ligation OOPHORECTOMY PARTIAL/TOTAL UNI/BI 09/2014 laparoscopic left, CW, umbilical/upper abdominal adhesions seen benign PAST SURGICAL HISTORY OF 1998 tubal PAST SURGICAL HISTORY OF 2001 thyroid ablation FAMILY HISTORY Problem Relation Age of Onset Diabetes Mother Type 2 stroke Colon Cancer Father age 64 [place] Diabetes Father Type 2 Hypertension Father Coronary Artery Disease Father Hx of LA Thyroid Sister hx of parathyroid disease/ hx of fibroids other (healthy) Brother other (healthy) Brother Allergies Daughter other (healthy) Daughter other (healthy) Son other (healthy) Son other (healthy) Son other (healthy) Son Colon Cancer Paternal Aunt x5 Colon Cancer Paternal Uncle x8 Social History Tobacco Use Smoking status: Every Day Packs/day: 1.00 Years: 20.00 Additional pack years: 0.00 Total pack years: 20.00 Types: Cigarettes Smokeless tobacco: Never Vaping Use Vaping Use: Never used Substance Use Topics Alcohol use: No Drug use: No Reviewed current medications, allergies, past medical history, surgical history, family history and social history today. REVIEW OF SYSTEMS All other reviewed and negative other than HPI. VITALS: LMP 03/10/2010 Last 4 Encounter Wt Readings: Date: Wt: 08/06/2022 94.8 kg (209 lb) 06/17/2022 94.3 kg (208 lb) 02/20/2022 95.1 kg (209 lb 9.6 oz) 12/31/2021 94.3 kg (208 lb) PHYSICAL EXAMINATION: Patient is alert and oriented during visit. Answers appropriately. ASSESSMENT/PLAN: 1. Nocturnal oxygen desaturation - ICD9: 327.24, ICD10: G47.34 (primary diagnosis) Continue oxygen. Call if any issues. Benefiting from its use. 2. ANDRESSA (obstructive sleep apnea) - ICD9: 327.23, ICD10: G47.33 - cannot tolerate cpap 3. Upper airway resistance syndrome - ICD9: 327.8, ICD10: G47.8 - as above. Freddy Dee MD documented in this encounter [facility] 11-24-2022 Miscellaneous Notes Done Shakir from [facility] would like to have the most recent office visit notes (08/06/22) sent to them via fax [phone]. documented in this encounter [facility] 09-10-2022 Note HNO ID: [id number] Author: Yaneth Ventura meghann Service: ? Author Type: Pharmacist Type: Progress Notes Filed: 09/10/2022 12:37 PM Note Text: Ambulatory Pharmacy Prior Authorization Note Provider Intervention Required?: No- Pharmacy completed on your behalf. Rx Plan: Medicaid [facility] ([facility]) Drug: Estradiol 0.01% Estriol 0.01% Compounded cream Cover My Meds Mondragon: [id number] Determination: Approved Prior Authorization/Case #: Prior Authorization Expiration: 09/08/2023 Time to PA Submission in CMM: 30 min Time to PA Determination in CMM: 1 day Additional Information: For questions relating to this submission, please contact [facility] at [phone] [facility] 08-06-2022 Note HNO ID: [id number] Author: Freddy Dee MD Service: ? Author Type: Physician Type: Progress Notes Filed: 08/06/2022 6:04 PM Note Text: Patient presents with: Dizziness HPI: Patient presents today for office visit for follow up. Here to discuss dizziness. Wondering about thyroid dose. Tsh is lower for her at .61. She has been sleeping large amounts and fatigued. Was having some hair loss previously and had been ordered. Has not felt herself. She has chronic palpitations. On the average she misses two days a month. Is not taking her cymbalta because she felt it made her tremulous. Is feeling dizzy again which goes along with her thyroid. MEDICATIONS: Current Outpatient Medications Medication Sig SYNTHROID 150 mcg tablet Take 1 tablet by mouth once daily. Take 1 tab by mouth once daily. drospirenone, contraceptive, (SLYND) 4 mg (28) tabet Take 1/2 pill daily. Noncontraceptive purpose. Please apply company discount, process as self-pay if insurance does not cover. testosterone in versabase topical cream 1% (CPD) Apply 0.1ml to vulva twice daily. (Dispense with a 1 mL syringe and jar, not MDD) estradiol 0.01% estriol 0.01% topical cream (CPD) Apply 0.3 mL topically to arm 2 times daily (Dispense with 1 ml syringe) VIVELLE-DOT 0.0375 mg/24 hr Apply half patch, and change every other day. MD aware-patient is fast metabolizer, pt needs this sig for tolerability. 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 Insulin: No Lancets lancets Test blood sugar(s) 2 times daily. Insulin: No CPAP Mask refitting for new mask (FFM option please), heated tubing (YULISSA). Lifetime supplies. G47.33 ANDRESSA albuterol HFA (PROVENTIL HFA) 90 mcg/actuation inhaler Inhale 2 Puffs as instructed every 4 hours as needed. NEEDED FOR SHORTNESS OF BREATH AND WHEEZING lancets (FREESTYLE LANCETS) 28 gauge misc USE FOUR TIMES DAILY DIRECTED blood sugar diagnostic (FREESTYLE TEST) test strip TEST four times a day Blood-Glucose Meter (FREESTYLE LITE METER) monitoring kit 1 Each as needed. No current facility-administered medications for this visit. ALLERGIES: ALLERGIES Allergen Reactions Codeine GI Upset, Vomiting Percocet [Oxycodone* Vomiting Solumedrol [Methylp* Mental Status Change Made her rageful Vicodin [Hydrocodon* Vomiting Metformin Other: See Comments Myalgias. Norethindrone GI Upset myalgias, lip/mouth burn, SOB, nausea, dizziness Pepcid [Famotidine * Other: See Comments Dry eyes, mouth, rash, itching, anxiety Tapazole [Methimazo* Hives PAST MEDICAL HISTORY Diagnosis Date Abdominal pain, chronic, right upper quadrant Asthma As a baby, then I outgrew it. Cystocele, midline 05/13/2009 Delayed emergence from anesthesia 09/27/2014 Depression Excessive or frequent menstruation Heavy periods GERD (gastroesophageal reflux disease) History of Graves' disease HSDD 10/21/2011 Hypothyroidism thyroid ablation/hypothyroid Irregular menstrual cycle Irregular periods menopause age 43 2009 in 2012 FSH 47 Moderate dysplasia of cervix 2002 Parent-child conflict 03/07/2013 Rectocele 05/13/2009 SVT (supraventricular tachycardia) (HCC) Has seen cardiology at [facility], many episodes of fast heart rate are actually sinus tachycardia Syncope 05/14/2013 -Reported that she had one [...] (stress echo). No significant change. - Tele Tobacco use Weight gain PAST SURGICAL HISTORY Procedure Laterality Date COLONOSCOPY 04/2017 says nl CONIZATION CERVIX W/WO DANDC RPR ELTRD EXC 2001 LEEP-Cervix ESOPHAGOGASTRODUODENOSCOPY TRANSORAL DIAGNOSTIC 01/22/2014,2009 EGD LAPAROSCOPY SURG CHOLECYSTECTOMY 05/19/2011 LIG/TRNSXJ FLP TUBE ABDL/VAG APPR UNI/BI 2003 Tubal ligation OOPHORECTOMY PARTIAL/TOTAL UNI/BI 09/2014 laparoscopic left, CW, umbilical/upper abdominal adhesions seen benign PAST SURGICAL HISTORY OF 1998 tubal PAST SURGICAL HISTORY OF 2001 thyroid ablation FAMILY HISTORY Problem Relation Age of Onset Diabetes Mother Type 2 stroke Colon Cancer Father age 64 [place] Diabetes Father Type 2 Hypertension Father Coronary Artery Disease Father Hx of [place] Thyroid Sister hx of parathyroid disease/ hx of fibroids other (healthy) Brother other (healthy) Brother Allergies Daughter other (healthy) Daughter other (healthy) So (more content not included)... [facility] 08-06-2022 History of Present illness Narrative Patient presents with: Dizziness HPI: Patient presents today for office visit for follow up. Here to discuss dizziness. Wondering about thyroid dose. Tsh is lower for her at .61. She has been sleeping large amounts and fatigued. Was having some hair loss previously and had been ordered. Has not felt herself. She has chronic palpitations. On the average she misses two days a month. Is not taking her cymbalta because she felt it made her tremulous. Is feeling dizzy again which goes along with her thyroid. MEDICATIONS: Current Outpatient Medications Medication Sig SYNTHROID 150 mcg tablet Take 1 tablet by mouth once daily. Take 1 tab by mouth once daily. drospirenone, contraceptive, (SLYND) 4 mg (28) tabet Take 1/2 pill daily. Noncontraceptive purpose. Please apply company discount, process as self-pay if insurance does not cover. testosterone in versabase topical cream 1% (CPD) Apply 0.1ml to vulva twice daily. (Dispense with a 1 mL syringe and jar, not MDD) estradiol 0.01% estriol 0.01% topical cream (CPD) Apply 0.3 mL topically to arm 2 times daily (Dispense with 1 ml syringe) VIVELLE-DOT 0.0375 mg/24 hr Apply half patch, and change every other day. MD aware-patient is fast metabolizer, pt needs this sig for tolerability. 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 Insulin: No Lancets lancets Test blood sugar(s) 2 times daily. Insulin: No CPAP Mask refitting for new mask (FFM option please), heated tubing (YULISSA). Lifetime supplies. G47.33 ANDRESSA albuterol HFA (PROVENTIL HFA) 90 mcg/actuation inhaler Inhale 2 Puffs as instructed every 4 hours as needed. NEEDED FOR SHORTNESS OF BREATH AND WHEEZING lancets (FREESTYLE LANCETS) 28 gauge misc USE FOUR TIMES DAILY DIRECTED blood sugar diagnostic (FREESTYLE TEST) test strip TEST four times a day Blood-Glucose Meter (FREESTYLE LITE METER) monitoring kit 1 Each as needed. No current facility-administered medications for this visit. ALLERGIES: ALLERGIES Allergen Reactions Codeine GI Upset, Vomiting Percocet [Oxycodone* Vomiting Solumedrol [Methylp* Mental Status Change Made her rageful Vicodin [Hydrocodon* Vomiting Metformin Other: See Comments Myalgias. Norethindrone GI Upset myalgias, lip/mouth burn, SOB, nausea, dizziness Pepcid [Famotidine * Other: See Comments Dry eyes, mouth, rash, itching, anxiety Tapazole [M[place]imazo* Hives PAST MEDICAL HISTORY Diagnosis Date Abdominal pain, chronic, right upper quadrant Asthma As a baby, then I outgrew it. Cystocele, midline 05/13/2009 Delayed emergence from anesthesia 09/27/2014 Depression Excessive or frequent menstruation Heavy periods GERD (gastroesophageal reflux disease) History of Graves' disease HSDD 10/21/2011 Hypothyroidism thyroid ablation/hypothyroid Irregular menstrual cycle Irregular periods menopause age 43 2010 in 2013 FSH 47 Moderate dysplasia of cervix 2002 Parent-child conflict 03/07/2013 Rectocele 05/13/2009 SVT (supraventricular tachycardia) ([facility]) Has seen cardiology at [facility]SH, many episodes of fast heart rate are actually sinus tachycardia Syncope 05/14/2013 -Reported that she had one [...] systolic function is normal. EF = 63 5% (2D biplane) - The right ventricle is normal in size. Right ventricular systolic function is normal. - There are no significant valvular abnormalities. - Prior echocardiogram performed on 11/10/11 (stress echo). No significant change. - Tele Tobacco use Weight gain PAST SURGICAL HISTORY Procedure Laterality Date COLONOSCOPY 04/2017 says nl CONIZATION CERVIX W/WO D&C RPR ELTRD EXC 2001 LEEP-Cervix ESOPHAGOGASTRODUODENOSCOPY TRANSORAL DIAGNOSTIC 01/22/2014,2009 EGD LAPAROSCOPY SURG CHOLECYSTECTOMY 05/19/2011 LIG/TRNSXJ FLP TUBE ABDL/VAG APPR UNI/BI 2003 Tubal ligation OOPHORECTOMY PARTIAL/TOTAL UNI/BI 09/2014 laparoscopic left, CW, umbilical/upper abdominal adhesions seen benign PAST SURGICAL HISTORY OF 1998 tubal PAST SURGICAL HISTORY OF 2001 thyroid ablation FAMILY HISTORY Problem Relation Age of Onset Diabetes Mother Type 2 stroke Colon Cancer Father age 64 [place] Diabetes Father Type 2 Hypertension Father Coronary Artery Disease Father Hx of [place] Thyroid Sister hx of parathyroid disease/ hx of fibroids other (healthy) Brother other (healthy) Brother Allergies Daughter other (healthy) Daughter other (healthy) Son other (healthy) Son other (healthy) Son other (healthy) Son Colon Cancer Paternal Aunt x5 Colon Cancer Paternal Uncle x8 Social History Tobacco Use Smoking status: Every Day Packs/day: 1.00 Years: 20.00 Pack years: 20.00 Types: Cigarettes Smokeless tobacco: Never Vaping Use Vaping Use: Never used Substance Use Topics Alcohol use: No Drug use: No Reviewed current medications, allergies, past medical history, surgical history, family history and social history today. REVIEW OF SYSTEMS All other reviewed and negative other than HPI. HEALTH MAINTENANCE: Reviewed health maintenance issues today and recommended the following in detail. HEPATITIS B(1 of 3 - 3-dose series) Never done SHINGRIX VACCINE(1 of 2) Never done LUNG CANCER SCREENING due on 04/23/2017 COLORECTAL CANCER SCREENING-recommended. COVID-19 VACCINE(2 - Moderna series) due on 01/24/2021 VITALS: BP 142/82 Pulse 102 Wt 94.8 kg (209 lb) LMP 03/10/2010 SpO2 96% BMI 37.32 kg/m Last 4 Encounter Wt Readings: Date: Wt: 08/06/2022 94.8 kg (209 lb) 06/17/2022 94.3 kg (208 lb) 02/20/2022 95.1 kg (209 lb 9.6 oz) 12/31/2021 94.3 kg (208 lb) PHYSICAL EXAMINATION: General appearance: Well appearing, alert, in no acute distress, well-hydrated, well nourished. Skin: Skin color, texture, turgor normal, no suspicious rashes or lesions Head: Normocephalic, no masses, lesions, tenderness or abnormalities Eyes: Anicteric sclera. Pupils are equally round and reactive to light. Extraocular movements are intact. Lungs: Lungs clear to auscultation. No wheezing, rhonchi, rales Heart: RRR without murmur, gallop, or rubs. No ectopy Abdomen: Normal abdominal exam, Abdomen soft, non-tender. Bowel sounds normal. No masses, organomegaly Extremities: No deformities, edema, skin discoloration, clubbing or cyanosis. Good capillary refill. ASSESSMENT/PLAN: 1. Hypothyroidism, acquired - ICD9: 244.9, ICD10: E03.9 (primary diagnosis) - change synthroid and recheck tsh in six weeks. - SYNTHROID 150 MCG TABLET - TSH BLD 2. Screening for lung cancer - ICD9: V76.0, ICD10: Z12.2 - CONSULT LUNG CANCER SCREENING CLINIC 3. ANDRESSA (obstructive sleep apnea) - ICD9: 327.23, ICD10: G47.33 - continue to follow 4. Postablative hypothyroidism - ICD9: 244.1, ICD10: E89.0 - TSH BLD Freddy Dee MD documented in this encounter [facility] 07-08-2022 Note HNO ID: [id number] Author: Paul Dick MD Service: ? Author Type: Physician Type: Progress Notes Filed: 07/08/2022 3:12 PM Note Text: I spent a total of 24+ minutes on the date of the service which included preparing to see the patient, [id number] patient care, completing clinical documentation, obtaining and/or reviewing separately obtained history, counseling and educating the patient/family/caregiver, communicating with other HCPs (not separately reported), and independently interpreting results (not separately reported). My name and active licensure communicated. The patient's identity and physical location were verified at the time of this visit. Either the patient or their legal financial services sales representative has been informed of the risks and benefits of -- and alternatives to -- treatment through a remote evaluation and consents to proceed with the evaluation remotely. [facility] 07-08-2022 History of Present illness Narrative I spent a total of 24+ minutes on the date of the service which included preparing to see the patient, [id number] patient care, completing clinical documentation, obtaining and/or reviewing separately obtained history, counseling and educating the patient/family/caregiver, communicating with other HCPs (not separately reported), and independently interpreting results (not separately reported). My name and active licensure communicated. The patient's identity and physical location were verified at the time of this visit. Either the patient or their legal financial services sales representative has been informed of the risks and benefits of -- and alternatives to -- treatment through a remote evaluation and consents to proceed with the evaluation remotely. Virtual visit-scheduled July 08, 2022 Start review of records, labs, interim events 1:04 PM Maribell Garzon is a 56 year old year old female. HEPATITIS B(1 of 3 - 3-dose series) Never done SHINGRIX VACCINE(1 of 2) Never done LUNG CANCER SCREENING due on 04/23/2017 COLORECTAL CANCER SCREENING due on 02/11/2020 COVID-19 VACCINE(2 - Moderna series) due on 01/24/2021 I have been seeing her since 11/[address] Angelo for hormonal concerns. Getting her mammograms via [facility], last 2019, she plans on going soon. Has had hormonal sensitivities throughout her life, difficulty tolerating any hormonal regimens. Premenstrual profound symptoms: heart racing, dizzy, muscle tension within 12 hours prior her cycle starting. Within 2 min of bleeding starting the sxs would resolve, this would occur consistently. States essentially had been in a chair for approximately 5 years. Hx of ovarian cysts, was scheduled for surgery to have removed, she insisted on repeat ultrasound because felt that the cyst was resolved, she was right. Didn't need the surgery. However she did have left oophorectomy for benign reasons. LMP in 2009, age [age]. Lab confirmed menopause-soon after gynecologic surgery. Since then symptoms are debilitating, disabled and cannot leave her house, difficult for her to drive. When in menopause many of the symptoms that she would experience premenstrually got much worse. Including arthralgias, told FM, she did not believe diagnosis. Anxiety was bad, tried multiple meds. Dry eyes, severe. Burning mouth (goes away completely with the ET). Brain fog. Has been seeing medical providers for multiple concerns. Is heterozygous for MTHFR mutation, never had a VTE with 6 pregnancies. Did see hematology who said can use estrogen, but prefer transdermals. She has also been dealing with hyperthyroidism. She is homebound, does get in the pool, and is outside in the garden, but not walking in the yard too much for any consistent amount of time. Got her COVID shot around 02/13 and multiple medical issues latter 2020 which she also feels impacted her hormones. 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 Discussed importance of slow adjustment of medications. We have been trying a variety of regimens as noted below, which she has not tolerated. We have been trying to get her to tolerate the E2 and P individually, though understands cannot use unopposed estrogen for prolonged periods for endometrial safety. Since working with very small doses, I told her no more than 3 months without addition of adequate progestin. Her prior doctors were offering compounded topical progesterone with ultrasound monitoring of the endometrium-discussed ultrasound cannot rule out cancer, and transdermal compounded formulations may not have adequate endometrial protection. Common themes over time include immediate symptom relief with the estrogen (mood, hair, moisture of mucous membranes), but the levels are not sustained with the typical frequency of the formulations. When she gets too much estrogen gets fluid retention under her skin (which she believes is due to estrogen drop, discussed fluid retention very common in the first 3-4 months of starting estrogen). She doesn't tolerate being without it, but can't tolerate being on it typically within 1-2 weeks, or sometimes even earlier. She felt well with high testosterone in the past (prior to her surgery). Feels the EstroGel twice daily was well-tolerated (was up to Estrogel 3 pumps a day- was tolerating, though what she has noted to be optimally tolerated in the past has varied during our different visits). At the 12/15 follow up she had noted noted 1/2 patch 0.25, changed every other day to the buttock instead of the abdomen has been best tolerated, with crossover 1-2 hours by leaving the older patch on. Thinks she felt best on 37.5 patch in the past. [place] that it was not enough, so on 12/15 increased to 37.5 vivelle patch utilizing her methods. Only filled a short supply of this because it is unopposed estrogen, and schedule close follow-up. On reserve discussed the idea of fill up the syringe with the biest and slowly use daily dose by increasing 0.1ml and titrating up as tolerated. At 02/14 noted she wasn't feeling better, but was actually starting to drive on the patches after 1 year of not being able to do so. We added Slynd, either 1/4 daily or 1/2 pill every other day. At 02/27/2022 follow-up Slynd 1/4 of tab daily was working well for her. Didn't like the patches though, she noted that she had EstroGel at home, and plan was to start low-dose yet frequent application, what ever minimum she tolerates slowly increased to effect. Also refilled the biest as is not clear which when she tolerated the best, spoke with our compounding pharmacy. 5 mg dose, which would be dispensed in 1 mL syringes, so that she can use 0.1-0.2 mL, 2-3 times a day as tolerated. By the time 04/16 was tolerating the 0.3 ml bid of the biest and inc to 1/2 pill of slynd (was feeling better with this dose). She was driving, and doing a lot more! Persistent HSDD and depression. Based on my calculation, she is getting approximately 1.2 mg of estradiol, as well as estriol. She is happy with the half pill of the Slynd (2 mg). Since she has always been high testosterone in the past, prior to her surgery, she felt strongly that testosterone replacement will help her best. Prescribed testosterone at low, more dilute dosing so that she can use more frequently (as she had the same issues with the crashing of hormone levels throughout the 24 hours if testosterone used once daily). Will continue to prescribe with syringes instead of metered-dose dispenser. 04/16 Rxed testosterone therapy aimed at 1 mg twice daily, and she will increase as tolerated. By the 05/18 appointment, the pharmacy couldn't get the HT for 3 wks, she was hormone free during this time, took a setback in terms of symptoms. Back on since late 04/16. Back on the 0.3 bid for the estrogen, 1/2 of the slynd. Reminded to get mammogram, and plans were to start testosterone when she feels ready. ........ Previously tried/offered: Depoprovera couldn't walk. OCPs multiple sxs of panic/heart racing rushing noises in ear (bathroom fan would sound like an airplane). Testosterone, progesterone only, estrogen only-fluid retention, causing reflux, asthma-like reaction-typically occurs after a few months of use Antianxiety medications-tried multiple MHT (Joanne) estrogen patch- felt too stimulated, even on the 25mcg. Had her changing every 2-3 days. Dose was increased to 50 which helped better with sxs, but legs would swell. Tried 4-6 wks for each. feels heart racing when the estrogen seems to be dropping. Within 2 hours of coming off the patch her HR would come down. 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 Saw cards and EP- told heart is not the problem, but a symptom of what is going on. Came off after 3 days, also felt drunk and dizzy with it. After she stopped taking it states took 1 mo for the drunken dizzy sensation to go away. estrogel- did ok initially, felt Better with twice a day, but at the higher dose legs would swell. 3 wks between dose adjustments, she did not like the fact that her HR would go up when waiting 24 hours between doses (felt that she was metabolizing the estrogen quickly). Divigel start with quarter or less of the packet daily, and slowly move up to the full dose as tolerated-cost prohibitive Bi est- the best she tried in the past, she felt like it was too much. The pharmacist was managing. 3 mg E2/0.5 of E3, she didn't feel comfortable with the way the pharmacist wanted to change the dosing. She felt that it was too E2 heavy. biest 08/15 rxed from us, 1 Click 0.25 g (which we typically use for vaginal local low-dose therapy) of the cream and warehouse picker a 1 mL syringe, start with use of 0.1 mL at a time, which she can use twice daily or 3 times daily if even needed. tried for 2 days, because had difficulty with the syringe so she tried the full dose of the 1 click instead. The heart started racing and fluctuation symptoms. Estratest and NET 0.[address] Trevino- kicked up GERD which she felt pushed into an asthma attack Prometrium 100 made her feel drunk and dizzy. Tried vaginally too, but bladder spasm. compounded transdermally after 20 mg starts getting similar symptoms. Estradiol 3 days into crying for no reason (although dr Trevino's notes says this was with FemHRT) No progestin that she has been able to tolerate-however she does sleep better with the Prometrium. She was nervous about the idea of Mirena because her daughter got hives, and it took a week for someone to remove it, nervous about anything that is not patient controlled. INTERIM UPDATE 07/08/2022: She had some technical issues with MyChart, so had nursing staff contact her first, Mucoid retention cyst of the tonsils soon, will be done as an outpatient -discussed hormone should be held if any complications or immobility. She will discuss with surgical team about preop instructions. Has been on the 0.3 ml bid of the biest, 5-6 wks. Continuing 1/2 pill Slynd. Symptoms more manageable that with the patch. But feeling depressed, a little better, not where she wants to be. She has been noticing hair loss (bilateral temporal region) since at least 06/18. Hasn't started the testosterone yet but feels that she needs it, has dermatology appt today, and her plan is to start the testosterone after this dermatology visit, once they are optimizing other nonhormonal options. Her PCP did do a dihydrotestosterone test recently which was normal. 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 I spoke with the genetics team, relevant info in 06/16 note. US 07/14: left oophorectomy, 4 mm endometrium, nl Cotesting 12/12 normal The following histories was reviewed and updated today: OB History T6 L6 SAB0 IAB0 Ectopic1 Multiple0 Live Births6 Comment: menarche 12 FFTP 15 menopause age 43 ACTIVE PROBLEM LIST Postablative Hypothyroidism hx of low vitamin D Panic Disorder With Agoraphobia Chronic Fatigue Fibromyalgia Syndrome Blood Pressure Elevated Without History of Htn Impaired Glucose Tolerance Svt (Supraventricular Tachycardia) (Hcc) Ptsd (Post-Traumatic Stress Disorder) Attention Deficit Hyperactivity Disorder (Adhd), Combined Type Recurrent Major Depressive Disorder, in Partial Remission ([facility]) menopause age 43 Tobacco Use Gerd Without Esophagitis Simple Chronic Bronchitis (Hcc) Irritable Bowel Syndrome With Diarrhea Systemic Lupus Erythematosus (Hcc) Burning Sensation of Mouth Burning Sensation of Skin Sleep Difficulties Mitral Valve Prolapse Screening for Malignant Neoplasm of The Cervix Visit for Pelvic Exam Encounter for Screening Mammogram for Malignant Neoplasm of Breast Estrogen Deficiency Adrenal Adenoma, Left Andressa (Obstructive Sleep Apnea) Other Chest Pain Nocturnal Oxygen Desaturation 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) Cyp2c9 Intermediate Metabolizer (Hcc) [id number] Rapid Metabolizer (Hcc) Ugt1a1 Intermediate Metabolizer (Hcc) Heterozygous Factor V Leiden Mutation (Hcc) Hormone Deficiency Not currently working due to disabled status-due to hormone deficiency Menopausal and Perimenopausal Disorder Mood Change PAST MEDICAL HISTORY Diagnosis Date Abdominal pain, chronic, right upper quadrant Asthma As a baby, then I outgrew it. Cystocele, midline 05/13/2009 Delayed emergence from anesthesia 09/27/2014 Depression Excessive or frequent menstruation Heavy periods GERD (gastroesophageal reflux disease) History of Graves' disease HSDD 10/21/2011 Hypothyroidism thyroid ablation/hypothyroid Irregular menstrual cycle Irregular periods menopause age 43 2009 in 2012 FSH 47 Moderate dysplasia of cervix 2001 Parent-child conflict 03/07/2013 Rectocele 05/13/2009 SVT (supraventricular tachycardia) ([facility]) Has seen cardiology at [facility], many episodes of fast heart rate are actually sinus tachycardia Syncope 05/14/2013 -Reported that she had one [...] systolic function is normal. EF = 63 5% (2D biplane) - The right ventricle is normal in size. Right ventricular systolic function is normal. - There are no significant valvular abnormalities. - Prior echocardiogram performed on 11/10/11 (stress echo). No significant change. - Tele Tobacco use Weight gain PAST SURGICAL HISTORY Procedure Laterality Date COLONOSCOPY 04/2017 says nl CONIZATION CERVIX W/WO D&C RPR ELTRD EXC 2001 LEEP-Cervix ESOPHAGOGASTRODUODENOSCOPY TRANSORAL DIAGNOSTIC 01/22/2014,2009 EGD LAPAROSCOPY SURG CHOLECYSTECTOMY 05/19/2011 LIG/TRNSXJ FLP TUBE ABDL/VAG APPR UNI/BI 2003 Tubal ligation OOPHORECTOMY PARTIAL/TOTAL UNI/BI 09/2014 laparoscopic left, CW, umbilical/upper abdominal adhesions seen benign PAST SURGICAL HISTORY OF 1998 tubal PAST SURGICAL HISTORY OF 2001 thyroid ablation FAMILY HISTORY Problem Relation Age of Onset Diabetes Mother Type 2 stroke Colon Cancer Father age 64 LA Diabetes Father Type 2 Hypertension Father Coronary Artery Disease Father Hx of [place] Thyroid Sister hx of parathyroid disease/ hx of fibroids other (healthy) Brother other (healthy) Brother Allergies Daughter other (healthy) Daughter other (healthy) Son other (healthy) Son other (healthy) Son other (healthy) Son Colon Cancer Paternal Aunt x5 Colon Cancer Paternal Uncle x8 Social History Tobacco Use Smoking status: Every Day Packs/day: 1.00 Years: 20.00 Pack years: 20.00 Types: Cigarettes Smokeless tobacco: Never Vaping Use Vaping Use: Never used Substance Use Topics Alcohol use: No Drug use: No Social History Social History Narrative She lives in [place] [address] 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 She already has an appointment with me for follow-up 09/15. If she wants to increase the dosing in the interim, reach out to me so that we can do it slowly. Reinforced prior discussions that increasing testosterone doses may negatively impact alopecia plans. No orders found for this visit on 07/08/22. Paul Dick MD Reviewed S+S to report for further evaluation. Note dictated using voice recognition software. documented in this encounter [facility] 07-08-2022 Note HNO ID: [id number] Author: Paul Dikc MD Service: ? Author Type: Physician Type: Progress Notes Filed: 07/08/2022 3:12 PM Note Text: Virtual visit-scheduled July 08, 2022 Start review of records, labs, interim events 1:04 PM Maribell Garzon is a 56 year old year old female. HEPATITIS B(1 of 3 - 3-dose series) Never done SHINGRIX VACCINE(1 of 2) Never done LUNG CANCER SCREENING due on 04/23/2017 COLORECTAL CANCER SCREENING due on 02/11/2020 COVID-19 VACCINE(2 - Moderna series) due on 01/24/2021 I have been seeing her since 11/[address] Angelo for hormonal concerns. Getting her mammograms via [facility], last 2019, she plans on going soon. Has had hormonal sensitivities throughout her life, difficulty tolerating any hormonal regimens. Premenstrual profound symptoms: heart racing, dizzy, muscle tension within 12 hours prior her cycle starting. Within 2 min of bleeding starting the sxs would resolve, this would occur consistently. States essentially had been in a chair for approximately 5 years. Hx of ovarian cysts, was scheduled for surgery to have removed, she insisted on repeat ultrasound because felt that the cyst was resolved, she was right. Didn't need the surgery. However she did have left oophorectomy for benign reasons. LMP in 2009, age [age]. Lab confirmed menopause-soon after gynecologic surgery. Since then symptoms are debilitating, disabled and cannot leave her house, difficult for her to drive. When in menopause many of the symptoms that she would experience premenstrually got much worse. Including arthralgias, told FM, she did not believe diagnosis. Anxiety was bad, tried multiple meds. Dry eyes, severe. Burning mouth (goes away completely with the ET). Brain fog. Has been seeing medical providers for multiple concerns. Is heterozygous for MTHFR mutation, never had a VTE with 6 pregnancies. Did see hematology who said can use estrogen, but prefer transdermals. She has also been dealing with hyperthyroidism. She is homebound, does get in the pool, and is outside in the garden, but not walking in the yard too much for any consistent amount of time. Got her COVID shot around 02/13 and multiple medical issues latter 2020 which she also feels impacted her hormones. 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 Discussed importance of slow adjustment of medications. We have been trying a variety of regimens as noted below, which she has not tolerated. We have been trying to get her to tolerate the E2 and P individually, though understands cannot use unopposed estrogen for prolonged periods for endometrial safety. Since working with very small doses, I told her no more than 3 months without addition of adequate progestin. Her prior doctors were offering compounded topical progesterone with ultrasound monitoring of the endometrium-discussed ultrasound cannot rule out cancer, and transdermal compounded formulations may not have adequate endometrial protection. Common themes over time include immediate symptom relief with the estrogen (mood, hair, moisture of mucous membranes), but the levels are not sustained with the typical frequency of the formulations. When she gets too much estrogen gets fluid retention under her skin (which she believes is due to estrogen drop, discussed fluid retention very common in the first 3-4 months of starting estrogen). She doesn't tolerate being without it, but can't tolerate being on it typically within 1-2 weeks, or sometimes even earlier. She felt well with high testosterone in the past (prior to her surgery). Feels the EstroGel twice daily was well-tolerated (was up to Estrogel 3 pumps a day- was tolerating, though what she has noted to be optimally tolerated in the past has varied during our different visits). At the 12/15 follow up she had noted noted 1/2 patch 0.25, changed every other day to the buttock instead of the abdomen has been best tolerated, with crossover 1-2 hours by leaving the older patch on. Thinks she felt best on 37.5 patch in the past. [place] that it was not enough, so on 12/15 increased to 37.5 vivelle patch utilizing her methods. Only filled a short supply of this because it is unopposed estrogen, and schedule close follow-up. On reserve discussed the idea of fill up the syringe with the biest and slowly use daily dose by increasing 0.1ml and titrating up as tolerated. At 02/14 noted she wasn't feeling better, but was actually starting to drive on the patches after 1 year of not being able to do so. We added Slynd, either 1/4 daily or 1/2 pill every other day. At 02/27/2022 follow-up Slynd 1/4 of tab da (more content not included)... [facility] 03-15-2023 Instructions Paul Dick MD - 07/08/2022 3:03 PM EDT Images from the original note were not included. Paul Dick MD, [facility] Professor of foaming machine operator & Reproductive Biology [facility] [place] Dept of Subspecialty Women's [facility] IMPORTANT NOTE: we cannot refill prescriptions without a yearly appointment. Appointments OFTEN BOOK OUT 6 months. Please ARRANGE appointments in advance so that prescription refill requests are not INTERUPPTED. My primary office is at [facility] (all paperwork requests should go to [facility]): Scheduling appointments General questions [place] [facility]: (this is not primary office) (please avoid faxing items to [place] office) I see patients in the following locations: Tuesdays, [facility] Wednesdays & , [facility] Mondays and Fridays: Add-on virtual visits only Getting an appointment when you need it: Please always start with contacting office for an appointment first. If needing an earlier appointment from what is offered, I can add you to my schedule if you send me a [employer] message. Since [employer] messages go to our nursing teams first, for me to actually see your message, I would recommend sending the message as follows with: 1) brief comment on why appointment needed 2) letting us know that you already tried calling the office and took first available appointment 3) something like Per our conversation, you mentioned you can add me in for a virtual visit, here are some dates/times in the next few weeks that work for me . It is important to include in your message multiple date/time windows that works for you in the upcoming several weeks, given flexibility in my schedule will vary. Times I can add patients into the schedule include: Mondays 9-2, (virtual only) Tuesdays 3 or 3:30 PM, (virtual or [place] office) Wednesdays 3:30 (virtual or [facility] [place] [facility], most difficult day for me) before 11:30 or between 2:30-3:30, afternoon preferred (virtual or [facility] [place] [facility]) Fridays 9-2, (virtual only) For more typical gynecologic concerns (bleeding, vaginal infections, preventive annual etc), I work with an amazing group of doctors and nurse practitioners who help each other out, not to mention the [facility] Express Care visits that are available online or at walk-in clinics throughout [facility]. Any clinician in the department can you see you for these more general needs, as I work as a learning consultant for more of the specialty hormonal concerns. If you don't get a timely response from me, please don't hesitate to be persistent! Occasionally we may have nurses and schedulers helping out temporarily in our office, causing some delays in getting the message to me. [employer] messages are allowed a 3 business day turnaround. For more urgent matters, it is always best to contact the office by phone. Hearing back about test results: I do not believe in the practice of no news is good news. You should always expect to receive results from our office no later than 2 weeks from when all of the tests have resulted. If you are having your testing done at an outside lab, please ensure that they have my correct fax number to send the results to: . Results can also be uploaded by patients via [employer]. Thank you for allowing me to participate in your care! Colon cancer screening is offered routinely starting at age 45, earlier if there is a family family history or symptoms. With a family history of colon cancer, we would like to start screening 10 years prior to the youngest family member (this is typically a first degree relative such as a mother, father, sibling or child). This should be arranged via your primary care doctor who will typically coordinate this; however, you can feel free to contact me to order if unable to obtain via your regular primary care doctor. documented in this encounter [facility] 07-01-2022 Note HNO ID: [id number] Author: RT Robert(R) Service: ? Author Type: Porcelain Waxer Type: Progress Notes Filed: 07/01/2022 1:51 PM Note Text: Radiology Service Progress Note PATIENT NAME: Maribell Garzon DATE OF SERVICE: July 01, 2022 TIME: 1:50 PM PATIENT IDENTITY VERIFICATION COMPLETED USING TWO (2) IDENTIFIERS: Name and Date of confirmed by patient verbally. FALL SCREENING: Has the patient had 2 falls in the last year or 1 fall with injury or currently using an Ambulatory Assistive Device (Walker, Cane, Wheelchair, Crutches, etc.)? No PATIENT GENDER DATA: Female. status: : No status: NO. PATIENT RELEVANT IMPLANT DATA REVIEWED: Not Applicable RADIOLOGY DEPARTMENT: Mammography PERIPHERAL IV DATA: Not applicable SIGNED BY: RT Robert(R) July 01, 2022 1:50 PM [facility] 07-01-2022 Miscellaneous Notes July 03, 2022 PID: [id number] Maribell Garzon [id number] [id number] Dear Sarah Duran, We are pleased to inform you that the results of your recent breast imaging exam on 07/01/2022 are normal. Early detection of cancer is very important. We also understand recommendations regarding breast cancer screening are controversial. Please discuss with your primary care provider which strategy is best for you and whether a mammogram is right for you. Your imaging studies and report will be kept on file at [facility] as part of your permanent medical record and are available for your continuing care. Thank you for allowing us to help in meeting your health care needs. Sincerely, Dr. Simons Interpreting Radiologist [facility] (Normal over 40) documented in this encounter [facility] 07-01-2022 History of Present illness Narrative Radiology Service Progress Note PATIENT NAME: Maribell Garzon DATE OF SERVICE: July 01, 2022 TIME: 1:50 PM PATIENT IDENTITY VERIFICATION COMPLETED USING TWO (2) IDENTIFIERS: Name and Date of confirmed by patient verbally. FALL SCREENING: Has the patient had 2 falls in the last year or 1 fall with injury or currently using an Ambulatory Assistive Device (Walker, Cane, Wheelchair, Crutches, etc.)? No PATIENT GENDER DATA: Female. status: : No status: NO. PATIENT RELEVANT IMPLANT DATA REVIEWED: Not Applicable RADIOLOGY DEPARTMENT: Mammography PERIPHERAL IV DATA: Not applicable SIGNED BY: RT Robert(R) July 01, 2022 1:50 PM documented in this encounter [facility] 06-30-2022 Miscellaneous Notes Pt read MC message on 06/29 at 7:39pm. Shakir Andino LPN Unable to leave message for patient voicemail is full. Images from the original note were not included. 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 Your labs are overall ok. White count is improving. The red count is stable and likely due to smoking. To be on the safe side. Recheck a cbc in six weeks. documented in this encounter [facility] 06-17-2022 Note HNO ID: [id number] Author: Freddy Dee MD Service: ? Author Type: Physician Type: Progress Notes Filed: 06/17/2022 2:59 PM Note Text: Patient presents with: Sore Throat HPI: Patient presents today for office visit for follow up. Has yet to start cymbalta. Feels a pulling in her throat. Has noticed no difference with ATB so far. Had declined strep testing. Is on amoxil. Still has 8 days left. Pain is on the left throat. Pressing on the area makes it feels better when swallowing. No fever or chills. Mild cough. No nausea or vomiting or diarrhea. Requests dht due to hair loss. See previous ov: She is worried about tonsillitis. No fever. Is getting worse. Is keeping fluids down. No drooling. No shortness of breath. Had a uri and congestion that lasted for two weeks, went away for four days and then back. Her mother has been ill also. No cough or shortness of breath. No nausea or vomiting or diarrhea. Had a hx of remote tonsillar abscess. Does not look or feel the same. No swollen glands. Did do a home covid test. MEDICATIONS: Current Outpatient Medications Medication Sig amoxicillin (AMOXIL) 875 mg tablet Take 1 tablet by mouth twice daily for 10 days. SYNTHROID 150 mcg tablet Take 1 tablet by mouth once daily. Take 1 tab by mouth once daily. albuterol HFA (PROVENTIL HFA) 90 mcg/actuation inhaler Inhale 2 Puffs as instructed every 4 hours as needed. NEEDED FOR SHORTNESS OF BREATH AND WHEEZING DULoxetine (CYMBALTA) 20 mg capsule Take 1 capsule by mouth once daily. drospirenone, contraceptive, (SLYND) 4 mg (28) tabet Take 1/2 pill daily. Noncontraceptive purpose. Please apply company discount, process as self-pay if insurance does not cover. testosterone in versabase topical cream 1% (CPD) Apply 0.1ml to vulva twice daily. (Dispense with a 1 mL syringe and jar, not MDD) estradiol 0.01% estriol 0.01% topical cream (CPD) Apply 0.3 mL topically to arm 2 times daily (Dispense with 1 ml syringe) VIVELLE-DOT 0.0375 mg/24 hr Apply half patch, and change every other day. MD aware-patient is fast metabolizer, pt needs this sig for tolerability. 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 Insulin: No Lancets lancets Test blood sugar(s) 2 times daily. Insulin: No CPAP Mask refitting for new mask (FFM option please), heated tubing (YULISSA). Lifetime supplies. G47.33 ANDRESSA lancets (FREESTYLE LANCETS) 28 gauge misc USE FOUR TIMES DAILY DIRECTED blood sugar diagnostic (FREESTYLE TEST) test strip TEST four times a day Blood-Glucose Meter (FREESTYLE LITE METER) monitoring kit 1 Each as needed. No current facility-administered medications for this visit. ALLERGIES: ALLERGIES Allergen Reactions Codeine GI Upset, Vomiting Percocet [Oxycodone* Vomiting Solumedrol [Methylp* Mental Status Change Made her rageful Vicodin [Hydrocodon* Vomiting Metformin Other: See Comments Myalgias. Norethindrone GI Upset myalgias, lip/mouth burn, SOB, nausea, dizziness Pepcid [Famotidine * Other: See Comments Dry eyes, mouth, rash, itching, anxiety Tapazole [Methimazo* Hives PAST MEDICAL HISTORY Diagnosis Date Abdominal pain, chronic, right upper quadrant Asthma As a baby, then I outgrew it. Cystocele, midline 05/13/2009 Delayed emergence from anesthesia 09/27/2014 Depression Excessive or frequent menstruation Heavy periods GERD (gastroesophageal reflux disease) History of Graves' disease HSDD 10/21/2011 Hypothyroidism thyroid ablation/hypothyroid Irregular menstrual cycle Irregular periods menopause age 43 2009 in 2012 FSH 47 Moderate dysplasia of cervix 2002 Parent-child conflict 03/07/2013 Rectocele 05/13/2009 SVT (supraventricular tachycardia) ([facility]) Has seen cardiology at [facility], many episodes of fast heart rate are actually sinus tachycardia Syncope 05/14/2013 -Reported that she had one [...] (stress echo). No significant change. - Tele Tobacco use Weight gain PAST SURGICAL HISTORY Procedure Laterality Date COLONOSCOPY 04/2017 says nl CONIZATION CERVIX W/WO DANDC RPR ELTRD EXC 2001 LEEP-Cervix ESOPHAGOGASTRODUODENOSCOPY TRANSORAL DIAGNOSTIC 01/22/2014,2009 EGD LAPAROSCOPY SURG CHOLECYSTECTOMY 05/19/2011 LIG/TRNSXJ FLP TUBE ABDL/VAG APPR UNI/BI 2003 Tubal ligation OOPHORECTOMY PARTIAL/TOTAL UNI/BI 09/2014 (more content not included)... [facility] 06-17-2022 History of Present illness Narrative Patient presents with: Sore Throat HPI: Patient presents today for office visit for follow up. Has yet to start cymbalta. Feels a pulling in her throat. Has noticed no difference with ATB so far. Had declined strep testing. Is on amoxil. Still has 8 days left. Pain is on the left throat. Pressing on the area makes it feels better when swallowing. No fever or chills. Mild cough. No nausea or vomiting or diarrhea. Requests dht due to hair loss. See previous ov: She is worried about tonsillitis. No fever. Is getting worse. Is keeping fluids down. No drooling. No shortness of breath. Had a uri and congestion that lasted for two weeks, went away for four days and then back. Her mother has been ill also. No cough or shortness of breath. No nausea or vomiting or diarrhea. Had a hx of remote tonsillar abscess. Does not look or feel the same. No swollen glands. Did do a home covid test. MEDICATIONS: Current Outpatient Medications Medication Sig amoxicillin (AMOXIL) 875 mg tablet Take 1 tablet by mouth twice daily for 10 days. SYNTHROID 150 mcg tablet Take 1 tablet by mouth once daily. Take 1 tab by mouth once daily. albuterol HFA (PROVENTIL HFA) 90 mcg/actuation inhaler Inhale 2 Puffs as instructed every 4 hours as needed. NEEDED FOR SHORTNESS OF BREATH AND WHEEZING DULoxetine (CYMBALTA) 20 mg capsule Take 1 capsule by mouth once daily. drospirenone, contraceptive, (SLYND) 4 mg (28) tabet Take 1/2 pill daily. Noncontraceptive purpose. Please apply company discount, process as self-pay if insurance does not cover. testosterone in versabase topical cream 1% (CPD) Apply 0.1ml to vulva twice daily. (Dispense with a 1 mL syringe and jar, not MDD) estradiol 0.01% estriol 0.01% topical cream (CPD) Apply 0.3 mL topically to arm 2 times daily (Dispense with 1 ml syringe) VIVELLE-DOT 0.0375 mg/24 hr Apply half patch, and change every other day. MD aware-patient is fast metabolizer, pt needs this sig for tolerability. 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 Insulin: No Lancets lancets Test blood sugar(s) 2 times daily. Insulin: No CPAP Mask refitting for new mask (FFM option please), heated tubing (YULISSA). Lifetime supplies. G47.33 ANDRESSA lancets (FREESTYLE LANCETS) 28 gauge misc USE FOUR TIMES DAILY DIRECTED blood sugar diagnostic (FREESTYLE TEST) test strip TEST four times a day Blood-Glucose Meter (FREESTYLE LITE METER) monitoring kit 1 Each as needed. No current facility-administered medications for this visit. ALLERGIES: ALLERGIES Allergen Reactions Codeine GI Upset, Vomiting Percocet [Oxycodone* Vomiting Solumedrol [Methylp* Mental Status Change Made her rageful Vicodin [Hydrocodon* Vomiting Metformin Other: See Comments Myalgias. Norethindrone GI Upset myalgias, lip/mouth burn, SOB, nausea, dizziness Pepcid [Famotidine * Other: See Comments Dry eyes, mouth, rash, itching, anxiety Tapazole [[place]* Hives PAST MEDICAL HISTORY Diagnosis Date Abdominal pain, chronic, right upper quadrant Asthma As a baby, then I outgrew it. Cystocele, midline 05/13/2009 Delayed emergence from anesthesia 09/27/2014 Depression Excessive or frequent menstruation Heavy periods GERD (gastroesophageal reflux disease) History of Graves' disease HSDD 10/21/2011 Hypothyroidism thyroid ablation/hypothyroid Irregular menstrual cycle Irregular periods menopause age 43 2009 in 2012 FSH 47 Moderate dysplasia of cervix 2002 Parent-child conflict 03/07/2013 Rectocele 05/13/2009 SVT (supraventricular tachycardia) ([facility]) Has seen cardiology at [facility], many episodes of fast heart rate are actually sinus tachycardia Syncope 05/14/2013 -Reported that she had one [...] systolic function is normal. EF = 63 5% (2D biplane) - The right ventricle is normal in size. Right ventricular systolic function is normal. - There are no significant valvular abnormalities. - Prior echocardiogram performed on 11/10/11 (stress echo). No significant change. - Tele Tobacco use Weight gain PAST SURGICAL HISTORY Procedure Laterality Date COLONOSCOPY 04/2017 says nl CONIZATION CERVIX W/WO D&C RPR ELTRD EXC 2001 LEEP-Cervix ESOPHAGOGASTRODUODENOSCOPY TRANSORAL DIAGNOSTIC 01/22/2014,2009 EGD LAPAROSCOPY SURG CHOLECYSTECTOMY 05/19/2011 LIG/TRNSXJ FLP TUBE ABDL/VAG APPR UNI/BI 2003 Tubal ligation OOPHORECTOMY PARTIAL/TOTAL UNI/BI 09/2014 laparoscopic left, CW, umbilical/upper abdominal adhesions seen benign PAST SURGICAL HISTORY OF 1998 tubal PAST SURGICAL HISTORY OF 2001 thyroid ablation FAMILY HISTORY Problem Relation Age of Onset Diabetes Mother Type 2 stroke Colon Cancer Father age 64 [place] Diabetes Father Type 2 Hypertension Father Coronary Artery Disease Father Hx of [place] Thyroid Sister hx of parathyroid disease/ hx of fibroids other (healthy) Brother other (healthy) Brother Allergies Daughter other (healthy) Daughter other (healthy) Son other (healthy) Son other (healthy) Son other (healthy) Son Colon Cancer Paternal Aunt x5 Colon Cancer Paternal Uncle x8 Social History Tobacco Use Smoking status: Every Day Packs/day: 1.00 Years: 20.00 Pack years: 20.00 Types: Cigarettes Smokeless tobacco: Never Vaping Use Vaping Use: Never used Substance Use Topics Alcohol use: No Drug use: No Reviewed current medications, allergies, past medical history, surgical history, family history and social history today. REVIEW OF SYSTEMS All other reviewed and negative other than HPI. HEALTH MAINTENANCE: Reviewed health maintenance issues today and recommended the following in detail. - see previous VITALS: BP 122/78 Pulse 79 Wt 94.3 kg (208 lb) LMP 03/10/2010 SpO2 96% BMI 37.14 kg/m Last 4 Encounter Wt Readings: Date: Wt: 02/20/2022 95.1 kg (209 lb 9.6 oz) 12/31/2021 94.3 kg (208 lb) 12/23/2021 94.3 kg (208 lb) 04/24/2021 91.2 kg (201 lb) PHYSICAL EXAMINATION: General appearance: Well appearing, alert, in no acute distress, well-hydrated, well nourished. Skin: Skin color, texture, turgor normal, no suspicious rashes or lesions Head: Normocephalic, no masses, lesions, tenderness or abnormalities Eyes: Anicteric sclera. Pupils are equally round and reactive to light. Extraocular movements are intact. Ears: External ears normal, canals clear Nose/Sinuses: Nares normal, septum midline, mucosa normal, no drainage or sinus tenderness Oropharynx: Lips, mucosa, and tongue normal, teeth and gums normal, oropharynx normal Neck: Supple, no adenopathy; thyroid symmetric, normal size, no bruits Lungs: Lungs clear to auscultation. No wheezing, rhonchi, rales Heart: RRR without murmur, gallop, or rubs. No ectopy Abdomen: Normal abdominal exam, Abdomen soft, non-tender. Bowel sounds normal. No masses, organomegaly ASSESSMENT/PLAN: 1. Pharyngitis, unspecified etiology - ICD9: 462, ICD10: J02.9 (primary diagnosis) - continue amoxil. - Red flags for re-assessment reviewed with patient in detail. - see ent if continues. Get labs. - MONOTEST, INFECTIOUS MONO 2. Fatigue, unspecified type - ICD9: 780.79, ICD10: R53.83 3. Hair loss - ICD9: 704.00, ICD10: L65.9 - DIHYDROTESTOSTERONE Freddy Dee MD documented in this encounter [facility] 06-15-2022 Note HNO ID: [id number] Author: Freddy Dee MD Service: ? Author Type: Physician Type: Progress Notes Filed: 06/15/2022 8:00 PM Note Text: Patient presents with: Acute Visit HPI:This Team Access Model visit is a virtual encounter. It required patient-provider interaction for the medical decision making as documented below. Patient has elected to have a visit through distance medicine. Patient is aware of limitations of performing the visit without a face to face visit in the office setting and agrees. She is worried about tonsillitis. No fever. Is getting worse. Is keeping fluids down. No drooling. No shortness of breath. Had a uri and congestion that lasted for two weeks, went away for four days and then back. Her mother has been ill also. No cough or shortness of breath. No nausea or vomiting or diarrhea. Had a hx of remote tonsillar abscess. Does not look or feel the same. No swollen glands. Did do a home covid test. MEDICATIONS: Current Outpatient Medications Medication Sig DULoxetine (CYMBALTA) 20 mg capsule Take 1 capsule by mouth once daily. drospirenone, contraceptive, (SLYND) 4 mg (28) tabet Take 1/2 pill daily. Noncontraceptive purpose. Please apply company discount, process as self-pay if insurance does not cover. testosterone in versabase topical cream 1% (CPD) Apply 0.1ml to vulva twice daily. (Dispense with a 1 mL syringe and jar, not MDD) estradiol 0.01% estriol 0.01% topical cream (CPD) Apply 0.3 mL topically to arm 2 times daily (Dispense with 1 ml syringe) VIVELLE-DOT 0.0375 mg/24 hr Apply half patch, and change every other day. MD aware-patient is fast metabolizer, pt needs this sig for tolerability. 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 Take 1 tab by mouth once daily. blood sugar diagnostic (BLOOD GLUCOSE TEST) test strip Test blood sugar(s) 2 times daily. Insulin: No Lancets lancets Test blood sugar(s) 2 times daily. Insulin: No CPAP Mask refitting for new mask (FFM option please), heated tubing (YULISSA). Lif[employer] supplies. G47.33 ANDRESSA albuterol HFA (PROVENTIL HFA) 90 mcg/actuation inhaler Inhale 2 Puffs as instructed every 4 hours as needed. NEEDED FOR SHORTNESS OF BREATH AND WHEEZING lancets (FREESTYLE LANCETS) 28 gauge misc USE FOUR TIMES DAILY DIRECTED blood sugar diagnostic (FREESTYLE TEST) test strip TEST four times a day Blood-Glucose Meter (FREESTYLE LITE METER) monitoring kit 1 Each as needed. No current facility-administered medications for this visit. ALLERGIES: ALLERGIES Allergen Reactions Codeine GI Upset, Vomiting Percocet [Oxycodone* Vomiting Solumedrol [Methylp* Mental Status Change Made her rageful Vicodin [Hydrocodon* Vomiting Metformin Other: See Comments Myalgias. Norethindrone GI Upset myalgias, lip/mouth burn, SOB, nausea, dizziness Pepcid [Famotidine * Other: See Comments Dry eyes, mouth, rash, itching, anxiety Tapazole [Methimazo* Hives PAST MEDICAL HISTORY Diagnosis Date Abdominal pain, chronic, right upper quadrant Asthma As a baby, then I outgrew it. Cystocele, midline 05/13/2009 Delayed emergence from anesthesia 09/27/2014 Depression Excessive or frequent menstruation Heavy periods GERD (gastroesophageal reflux disease) History of Graves' disease HSDD 10/21/2011 Hypothyroidism thyroid ablation/hypothyroid Irregular menstrual cycle Irregular periods menopause age 43 2009 in 2012 FSH 47 Moderate dysplasia of cervix 2001 Parent-child conflict 03/07/2013 Rectocele 05/13/2009 SVT (supraventricular tachycardia) (HCC) Has seen cardiology at [facility], many episodes of fast heart rate are actually sinus tachycardia Syncope 05/14/2013 -Reported that she had one [...] (stress echo). No significant change. - Tele Tobacco use Weight gain PAST SURGICAL HISTORY Procedure Laterality Date COLONOSCOPY 04/2017 says nl CONIZATION CERVIX W/WO DANDC RPR ELTRD EXC 2001 LEEP-Cervix ESOPHAGOGASTRODUODENOSCOPY TRANSORAL DIAGNOSTIC 01/22/2014,2009 EGD LAPAROSCOPY SURG CHOLECYSTECTOMY 05/19/2011 LIG/TRNSXJ FLP TUBE ABDL/VAG APPR UNI/BI 2003 Tubal ligation OOPHORECTOMY PARTIAL/TOTAL UNI/BI 09/2014 laparoscopic left, CW, umbilical/upper abdominal adhesions seen benign PAST SURGICAL HISTORY OF 1998 tubal PAST SURGICAL HISTORY OF 2001 thyroid ablation FAMILY HISTORY Pr (more content not included)... [facility] 06-15-2022 History of Present illness Narrative Patient presents with: Acute Visit HPI:This Team Access Model visit is a virtual encounter. It required patient-provider interaction for the medical decision making as documented below. Patient has elected to have a visit through distance medicine. Patient is aware of limitations of performing the visit without a face to face visit in the office setting and agrees. She is worried about tonsillitis. No fever. Is getting worse. Is keeping fluids down. No drooling. No shortness of breath. Had a uri and congestion that lasted for two weeks, went away for four days and then back. Her mother has been ill also. No cough or shortness of breath. No nausea or vomiting or diarrhea. Had a hx of remote tonsillar abscess. Does not look or feel the same. No swollen glands. Did do a home covid test. MEDICATIONS: Current Outpatient Medications Medication Sig DULoxetine (CYMBALTA) 20 mg capsule Take 1 capsule by mouth once daily. drospirenone, contraceptive, (SLYND) 4 mg (28) tabet Take 1/2 pill daily. Noncontraceptive purpose. Please apply [employer] discount, process as self-pay if insurance does not cover. testosterone in versabase topical cream 1% (CPD) Apply 0.1ml to vulva twice daily. (Dispense with a 1 mL syringe and jar, not MDD) estradiol 0.01% estriol 0.01% topical cream (CPD) Apply 0.3 mL topically to arm 2 times daily (Dispense with 1 ml syringe) VIVELLE-DOT 0.0375 mg/24 hr Apply half patch, and change every other day. MD aware-patient is fast metabolizer, pt needs this sig for tolerability. 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 Take 1 tab by mouth once daily. blood sugar diagnostic (BLOOD GLUCOSE TEST) test strip Test blood sugar(s) 2 times daily. Insulin: No Lancets lancets Test blood sugar(s) 2 times daily. Insulin: No CPAP Mask refitting for new mask (FFM option please), heated tubing (YULISSA). Lifetime supplies. G47.33 ANDRESSA albuterol HFA (PROVENTIL HFA) 90 mcg/actuation inhaler Inhale 2 Puffs as instructed every 4 hours as needed. NEEDED FOR SHORTNESS OF BREATH AND WHEEZING lancets (FREESTYLE LANCETS) 28 gauge misc USE FOUR TIMES DAILY DIRECTED blood sugar diagnostic (FREESTYLE TEST) test strip TEST four times a day Blood-Glucose Meter (FREESTYLE LITE METER) monitoring kit 1 Each as needed. No current facility-administered medications for this visit. ALLERGIES: ALLERGIES Allergen Reactions Codeine GI Upset, Vomiting Percocet [Oxycodone* Vomiting Solumedrol [Methylp* Mental Status Change Made her rageful Vicodin [Hydrocodon* Vomiting Metformin Other: See Comments Myalgias. Norethindrone GI Upset myalgias, lip/mouth burn, SOB, nausea, dizziness Pepcid [Famotidine * Other: See Comments Dry eyes, mouth, rash, itching, anxiety Tapazole [Methimazo* Hives PAST MEDICAL HISTORY Diagnosis Date Abdominal pain, chronic, right upper quadrant Asthma As a baby, then I outgrew it. Cystocele, midline 05/13/2009 Delayed emergence from anesthesia 09/27/2014 Depression Excessive or frequent menstruation Heavy periods GERD (gastroesophageal reflux disease) History of Graves' disease HSDD 10/21/2011 Hypothyroidism thyroid ablation/hypothyroid Irregular menstrual cycle Irregular periods menopause age 43 2009 in 2012 FSH 47 Moderate dysplasia of cervix 2002 Parent-child conflict 03/07/2013 Rectocele 05/13/2009 SVT (supraventricular tachycardia) (HCC) Has seen cardiology at [facility], many episodes of fast heart rate are actually sinus tachycardia Syncope 05/14/2013 -Reported that she had one [...] systolic function is normal. EF = 63 5% (2D biplane) - The right ventricle is normal in size. Right ventricular systolic function is normal. - There are no significant valvular abnormalities. - Prior echocardiogram performed on 11/10/11 (stress echo). No significant change. - Tele Tobacco use Weight gain PAST SURGICAL HISTORY Procedure Laterality Date COLONOSCOPY 04/2017 says nl CONIZATION CERVIX W/WO D&C RPR ELTRD EXC 2001 LEEP-Cervix ESOPHAGOGASTRODUODENOSCOPY TRANSORAL DIAGNOSTIC 01/22/2014,2009 EGD LAPAROSCOPY SURG CHOLECYSTECTOMY 05/19/2011 LIG/TRNSXJ FLP TUBE ABDL/VAG APPR UNI/BI 2003 Tubal ligation OOPHORECTOMY PARTIAL/TOTAL UNI/BI 09/2014 laparoscopic left, CW, umbilical/upper abdominal adhesions seen benign PAST SURGICAL HISTORY OF 1998 tubal PAST SURGICAL HISTORY OF 2001 thyroid ablation FAMILY HISTORY Problem Relation Age of Onset Diabetes Mother Type 2 stroke Colon Cancer Father age 64 [place] Diabetes Father Type 2 Hypertension Father Coronary Artery Disease Father Hx of [place] Thyroid Sister hx of parathyroid disease/ hx of fibroids other (healthy) Brother other (healthy) Brother Allergies Daughter other (healthy) Daughter other (healthy) Son other (healthy) Son other (healthy) Son other (healthy) Son Colon Cancer Paternal Aunt x5 Colon Cancer Paternal Uncle x8 Social History Tobacco Use Smoking status: Every Day Packs/day: 1.00 Years: 20.00 Pack years: 20.00 Types: Cigarettes Smokeless tobacco: Never Vaping Use Vaping Use: Never used Substance Use Topics Alcohol use: No Drug use: No Reviewed current medications, allergies, past medical history, surgical history, family history and social history today. REVIEW OF SYSTEMS All other reviewed and negative other than HPI. HEALTH MAINTENANCE: Reviewed health maintenance issues today and recommended the following in detail. LUNG CANCER SCREENING was ordered. COLORECTAL CANCER SCREENING- have ordered. MAMMOGRAM - had to cancel due to illness. VITALS: LMP 03/10/2010 Last 4 Encounter Wt Readings: Date: Wt: 02/20/2022 95.1 kg (209 lb 9.6 oz) 12/31/2021 94.3 kg (208 lb) 12/23/2021 94.3 kg (208 lb) 04/24/2021 91.2 kg (201 lb) PHYSICAL EXAMINATION: Patient is alert and oriented during visit. Answers appropriately. Non toxic. No hot potato voice. No drooling. I can actually get a good view pharynx and has a mid line uvula without asymmetrical swelling. Tender per patient on lower portion of throat. Redness without exudate. ASSESSMENT/PLAN: - declines strep testing. Just wants treated. Red flags for re-assessment reviewed with patient in detail. Push fluids. Call if symptoms worsen at all or if not better in one to two weeks - AMOXICILLIN 875 MG TABLET Freddy Dee MD documented in this encounter [facility] 06-10-2022 Note HNO ID: [id number] Author: Paul Dick MD Service: ? Author Type: Physician Type: Progress Notes Filed: 06/10/2022 8:31 AM Note Text: I spent a total of 32 minutes on the date of the service which included preparing to see the patient, [id number] patient care, completing clinical documentation, obtaining and/or reviewing separately obtained history, counseling and educating the patient/family/caregiver, ordering medications, tests, or procedures, communicating with other HCPs (not separately reported), independently interpreting results (not separately reported), communicating results to the patient/family/caregiver, and care coordination (not separately reported). Real-time telemedicine visit using audiovisual technology with patient's verbal consent. Name and verified. [facility] 06-10-2022 Note HNO ID: [id number] Author: Paul Dick MD Service: ? Author Type: Physician Type: Progress Notes Filed: 06/10/2022 8:31 AM Note Text: Virtual visit-scheduled June 10, 2022 Start review of records, labs, interim events 8:03 AM Maribell Garzon is a 56 year old year old female. HEPATITIS B(1 of 3 - 3-dose series) Never done SHINGRIX VACCINE(1 of 2) Never done LUNG CANCER SCREENING due on 04/23/2017 COLORECTAL CANCER SCREENING due on 02/11/2020 COVID-19 VACCINE(2 - Moderna series) due on 01/24/2021 MAMMOGRAM due on 06/16/2021 INFLUENZA(1) due on 2021 I have been seeing her since 11/[address] Angelo for hormonal concerns. Has had hormonal sensitivities throughout her life, difficulty tolerating any hormonal regimens. Premenstrual profound symptoms: heart racing, dizzy, muscle tension within 12 hours prior her cycle starting. Within 2 min of bleeding starting the sxs would resolve, this would occur consistently. Hx of ovarian cysts, was scheduled for surgery to have removed, she insisted on repeat ultrasound because felt that the cyst was resolved, she was right. Didn't need the surgery. However she did have left oophorectomy for benign reasons. LMP in 2009, age 42-43. Lab confirmed menopause-soon after gynecologic surgery. Since then symptoms are debilitating, disabled and cannot leave her house, difficult for her to drive. When in menopause many of the symptoms that she would experience premenstrually got much worse. Including arthralgias, told FM, she did not believe diagnosis. Anxiety was bad, tried multiple meds. Dry eyes, severe. Burning mouth (goes away completely with the ET). Brain fog. Has been seeing medical providers for multiple concerns. Is heterozygous for MTHFR mutation, never had a VTE with 6 pregnancies. Did see hematology who said can use estrogen, but prefer transdermals. She has also been dealing with hyperthyroidism. She is homebound, does get in the pool, and is outside in the garden, but not walking in the yard too much for any consistent amount of time. Got her COVID shot around 02/13 and multiple medical issues latter 2020 which she also feels impacted her hormones. 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 Discussed importance of slow adjustment of medications. We have been trying a variety of regimens as noted below, which she has not tolerated. We have been trying to get her to tolerate the E2 and P individually, though understands cannot use unopposed estrogen for prolonged periods for endometrial safety. Since working with very small doses, I told her no more than 3 months without addition of adequate progestin. Her prior doctors were offering compounded topical progesterone with ultrasound monitoring of the endometrium-discussed ultrasound cannot rule out cancer, and transdermal compounded formulations may not have adequate endometrial protection. Common themes over time include immediate symptom relief with the estrogen (mood, hair, moisture of mucous membranes), but the levels are not sustained with the typical frequency of the formulations. When she gets too much estrogen gets fluid retention under her skin (which she believes is due to estrogen drop, discussed fluid retention very common in the first 3-4 months of starting estrogen). She doesn't tolerate being without it, but can't tolerate being on it typically within 1-2 weeks, or sometimes even earlier. She felt well with high testosterone in the past (prior to her surgery). Feels the EstroGel twice daily was well-tolerated (was up to Estrogel 3 pumps a day- was tolerating, though what she has noted to be optimally tolerated in the past has varied during our different visits). At the 12/15 follow up she had noted noted 1/2 patch 0.25, changed every other day to the buttock instead of the abdomen has been best tolerated, with crossover 1-2 hours by leaving the older patch on. Thinks she felt best on 37.5 patch in the past. [place] that it was not enough, so on 12/15 increased to 37.5 vivelle patch utilizing her methods. Only filled a short supply of this because it is unopposed estrogen, and schedule close follow-up. On reserve discussed the idea of fill up the syringe with the biest and slowly use daily dose by increasing 0.1ml and titrating up as tolerated. At 02/14 noted she wasn't feeling better, but was actually starting to drive on the patches after 1 year of not being able to do so. We added Slynd, either 1/4 daily or 1/2 pill every other day. At 02/27/2022 follow-up Slynd 1/4 of tab daily was working well for her. Didn't like the patches though, she noted that she had EstroG (more content not included)... [facility] 05-28-2022 Note HNO ID: [id number] Author: Freddy Dee MD Service: ? Author Type: Physician Type: Progress Notes Filed: 05/28/2022 10:15 AM Note Text: Patient presents with: Follow Up HPI:This Team Access Model visit is a virtual encounter. It required patient-provider interaction for the medical decision making as documented below. Patient has elected to have a visit through distance medicine. Patient is aware of limitations of performing the visit without a face to face visit in the office setting and agrees. Woke up sick the next day after lab work. Now feeling better. She is maintaining oxygen oxygen at night using her fit bit. Still not sleeping well and waking up feeling tired. She has seen neurology, pulmonary, and sleep in the past. She is wondering about depression. We have tried numerous meds in the past without success. She feels needs more energy. No suicidal ideation. Is willing to try cymbalta. See previous: Is very sleepy over the last few weeks Has a fit bit that says her quality of sleep has not changed. Has sleep apnea but cannot use it. Has asthma. Her breathing is not significantly changed. She does ask about depression. Not feeling necessarily down but is very fatigued. No infectious symptoms. Some constipation. Had had some weight gain. Feels different from her normal thyroid tired. Can't tolerated most antidepressants. Component Latest Ref Rng AND Units 05/25/2022 WBC 3.70 - 11.00 k/uL 12.95 (H) RBC 3.90 - 5.20 m/uL 4.96 Hemoglobin 11.5 - 15.5 g/dL 15.7 (H) Hematocrit 36.0 - 46.0 % 46.9 (H) MCV 80.0 - 100.0 fL 94.6 MCH 26.0 - 34.0 pg 31.7 MCHC 30.5 - 36.0 g/dL 33.5 RDW-CV 11.5 - 15.0 % 12.9 Platelet Count 150 - 400 k/uL 287 MPV 9.0 - 12.7 fL 9.7 Neut% % 63.2 Abs Neut (ANC) 1.45 - 7.50 k/uL 8.18 (H) Lymph% % 27.1 Abs Lymph 1.00 - 4.00 k/uL 3.51 [place]% % 7.3 Abs [place] <0.87 k/uL 0.95 (H) Eosin% % 1.4 Abs Eosin <0.46 k/uL 0.18 Baso% % 0.5 Abs Baso <0.11 k/uL 0.06 Immature Gran % % 0.5 IMMATURE GRANS (ABS) <0.10 k/uL 0.07 NRBC /100 WBC 0.0 Absolute nRBC <0.01 k/uL <0.01 DTYPE Auto Protein, Total 6.3 - 8.0 g/dL 7.1 Albumin 3.9 - 4.9 g/dL 4.2 Calcium 8.5 - 10.2 mg/dL 9.1 Bilirubin, Total 0.2 - 1.3 mg/dL 0.2 Alkaline Phosphatase 34 - 123 U/L 81 AST 13 - 35 U/L 22 ALT 7 - 38 U/L 33 Glucose 74 - 99 mg/dL 143 (H) BUN 7 - 21 mg/dL 9 Creatinine 0.58 - 0.96 mg/dL 0.78 Sodium 136 - 144 mmol/L 137 Potassium 3.7 - 5.1 mmol/L 3.9 Chloride 97 - 105 mmol/L 103 CO2 22 - 30 mmol/L 27 Anion Gap 9 - 18 mmol/L 7 (L) eGFR >=60 mL/min/1.73mA? 89 Hemoglobin A1C 4.3 - 5.6 % 6.1 (H) Estimated Average Glucose mg/dL 128 TSH 0.270 - 4.200 mIU/L 1.580 Free T4 0.9 - 1.7 ng/dL 1.2 T3 79 - 165 ng/dL 111 WSR 0 - 20 mm/hr 8 MEDICATIONS: Current Outpatient Medications Medication Sig drospirenone, contraceptive, (SLYND) 4 mg (28) tabet Take 1/2 pill daily. Noncontraceptive purpose. Please apply company discount, process as self-pay if insurance does not cover. testosterone in versabase topical cream 1% (CPD) Apply 0.1ml to vulva twice daily. (Dispense with a 1 mL syringe and jar, not MDD) estradiol 0.01% estriol 0.01% topical cream (CPD) Apply 0.3 mL topically to arm 2 times daily (Dispense with 1 ml syringe) VIVELLE-DOT 0.0375 mg/24 hr Apply half patch, and change every other day. MD aware-patient is fast metabolizer, pt needs this sig for tolerability. 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 Take 1 tab by mouth once daily. blood sugar diagnostic (BLOOD GLUCOSE TEST) test strip Test blood sugar(s) 2 times daily. Insulin: No Lancets lancets Test blood sugar(s) 2 times daily. Insulin: No CPAP Mask refitting for new mask (FFM option please), heated tubing (YULISSA). [employer] supplies. G47.33 ANDRESSA albuterol HFA (PROVENTIL HFA) 90 mcg/actuation inhaler Inhale 2 Puffs as instructed every 4 hours as needed. NEEDED FOR SHORTNESS OF BREATH AND WHEEZING lancets (FREESTYLE LANCETS) 28 gauge misc USE FOUR TIMES DAILY DIRECTED blood sugar diagnostic (FREESTYLE TEST) test strip TEST four times a day Blood-Glucose Meter (FREESTYLE LITE METER) monitoring kit 1 Each as needed. No current facility-administered medications for this visit. ALLERGIES: ALLERGIES Allergen Reactions Codeine GI Upset, Vomiting Percocet [Oxycodone* Vomiting Solumedrol [Methylp* Mental Status Change Made her rageful Vicodin [Hydrocodon* Vomiting Metformin Other: See Comments Myalgias. Norethindrone GI Upset myalgias, lip/mouth burn, SOB, nausea, dizziness Pepcid [Famotidine * Other: See Comments Dry eyes, mouth, rash, itching, anxiety Tapazole [Methim[place]* Hives PAST MEDICAL HISTORY Diagnosis Date Abdominal pain, chronic, right upper quadrant Asthma As a baby, then I outgrew it. Cystocele, midline 05/13/2009 Delayed emergence from anesthesia 09/27/2014 Depression Exce (more content not included)... [facility] 05-28-2022 History of Present illness Narrative Patient presents with: Follow Up HPI:This Team Access Model visit is a virtual encounter. It required patient-provider interaction for the medical decision making as documented below. Patient has elected to have a visit through distance medicine. Patient is aware of limitations of performing the visit without a face to face visit in the office setting and agrees. Woke up sick the next day after lab work. Now feeling better. She is maintaining oxygen oxygen at night using her fit bit. Still not sleeping well and waking up feeling tired. She has seen neurology, pulmonary, and sleep in the past. She is wondering about depression. We have tried numerous meds in the past without success. She feels needs more energy. No suicidal ideation. Is willing to try cymbalta. See previous: Is very sleepy over the last few weeks Has a fit bit that says her quality of sleep has not changed. Has sleep apnea but cannot use it. Has asthma. Her breathing is not significantly changed. She does ask about depression. Not feeling necessarily down but is very fatigued. No infectious symptoms. Some constipation. Had had some weight gain. Feels different from her normal thyroid tired. Can't tolerated most antidepressants. Component Latest Ref Rng & Units 05/25/2022 WBC 3.70 - 11.00 k/uL 12.95 (H) RBC 3.90 - 5.20 m/uL 4.96 Hemoglobin 11.5 - 15.5 g/dL 15.7 (H) Hematocrit 36.0 - 46.0 % 46.9 (H) MCV 80.0 - 100.0 fL 94.6 MCH 26.0 - 34.0 pg 31.7 MCHC 30.5 - 36.0 g/dL 33.5 RDW-CV 11.5 - 15.0 % 12.9 Platelet Count 150 - 400 k/uL 287 MPV 9.0 - 12.7 fL 9.7 Neut% % 63.2 Abs Neut (ANC) 1.45 - 7.50 k/uL 8.18 (H) Lymph% % 27.1 Abs Lymph 1.00 - 4.00 k/uL 3.51 Durham% % 7.3 Abs Durham <0.87 k/uL 0.95 (H) Eosin% % 1.4 Abs Eosin <0.46 k/uL 0.18 Baso% % 0.5 Abs Baso <0.11 k/uL 0.06 Immature Gran % % 0.5 IMMATURE GRANS (ABS) <0.10 k/uL 0.07 NRBC /100 WBC 0.0 Absolute nRBC <0.01 k/uL <0.01 DTYPE Auto Protein, Total 6.3 - 8.0 g/dL 7.1 Albumin 3.9 - 4.9 g/dL 4.2 Calcium 8.5 - 10.2 mg/dL 9.1 Bilirubin, Total 0.2 - 1.3 mg/dL 0.2 Alkaline Phosphatase 34 - 123 U/L 81 AST 13 - 35 U/L 22 ALT 7 - 38 U/L 33 Glucose 74 - 99 mg/dL 143 (H) BUN 7 - 21 mg/dL 9 Creatinine 0.58 - 0.96 mg/dL 0.78 Sodium 136 - 144 mmol/L 137 Potassium 3.7 - 5.1 mmol/L 3.9 Chloride 97 - 105 mmol/L 103 CO2 22 - 30 mmol/L 27 Anion Gap 9 - 18 mmol/L 7 (L) eGFR >=60 mL/min/1.73m 89 Hemoglobin A1C 4.3 - 5.6 % 6.1 (H) Estimated Average Glucose mg/dL 128 TSH 0.270 - 4.200 mIU/L 1.580 Free T4 0.9 - 1.7 ng/dL 1.2 T3 79 - 165 ng/dL 111 WSR 0 - 20 mm/hr 8 MEDICATIONS: Current Outpatient Medications Medication Sig drospirenone, contraceptive, (SLYND) 4 mg (28) tabet Take 1/2 pill daily. Noncontraceptive purpose. Please apply company discount, process as self-pay if insurance does not cover. testosterone in versabase topical cream 1% (CPD) Apply 0.1ml to vulva twice daily. (Dispense with a 1 mL syringe and jar, not MDD) estradiol 0.01% estriol 0.01% topical cream (CPD) Apply 0.3 mL topically to arm 2 times daily (Dispense with 1 ml syringe) VIVELLE-DOT 0.0375 mg/24 hr Apply half patch, and change every other day. MD aware-patient is fast metabolizer, pt needs this sig for tolerability. 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 Take 1 tab by mouth once daily. blood sugar diagnostic (BLOOD GLUCOSE TEST) test strip Test blood sugar(s) 2 times daily. Insulin: No Lancets lancets Test blood sugar(s) 2 times daily. Insulin: No CPAP Mask refitting for new mask (FFM option please), heated tubing (YULISSA). Lifetime supplies. G47.33 ANDRESSA albuterol HFA (PROVENTIL HFA) 90 mcg/actuation inhaler Inhale 2 Puffs as instructed every 4 hours as needed. NEEDED FOR SHORTNESS OF BREATH AND WHEEZING lancets (FREESTYLE LANCETS) 28 gauge misc USE FOUR TIMES DAILY DIRECTED blood sugar diagnostic (FREESTYLE TEST) test strip TEST four times a day Blood-Glucose Meter (FREESTYLE LITE METER) monitoring kit 1 Each as needed. No current facility-administered medications for this visit. ALLERGIES: ALLERGIES Allergen Reactions Codeine GI Upset, Vomiting Percocet [Oxycodone* Vomiting Solumedrol [Methylp* Mental Status Change Made her rageful Vicodin [Hydrocodon* Vomiting Metformin Other: See Comments Myalgias. Norethindrone GI Upset myalgias, lip/mouth burn, SOB, nausea, dizziness Pepcid [Famotidine * Other: See Comments Dry eyes, mouth, rash, itching, anxiety Tapazole [Methimazo* Hives PAST MEDICAL HISTORY Diagnosis Date Abdominal pain, chronic, right upper quadrant Asthma As a baby, then I outgrew it. Cystocele, midline 05/13/2009 Delayed emergence from anesthesia 09/27/2014 Depression Excessive or frequent menstruation Heavy periods GERD (gastroesophageal reflux disease) History of Graves' disease HSDD 10/21/2011 Hypothyroidism thyroid ablation/hypothyroid Irregular menstrual cycle Irregular periods menopause age 43 2009 in 2012 FSH 47 Moderate dysplasia of cervix 2001 Parent-child conflict 03/07/2013 Rectocele 05/13/2009 SVT (supraventricular tachycardia) (HCC) Has seen cardiology at [facility], many episodes of fast heart rate are actually sinus tachycardia Syncope 05/14/2013 -Reported that she had one [...] systolic function is normal. EF = 63 5% (2D biplane) - The right ventricle is normal in size. Right ventricular systolic function is normal. - There are no significant valvular abnormalities. - Prior echocardiogram performed on 11/10/11 (stress echo). No significant change. - Tele Tobacco use Weight gain PAST SURGICAL HISTORY Procedure Laterality Date COLONOSCOPY 04/2017 says nl CONIZATION CERVIX W/WO D&C RPR ELTRD EXC 2001 LEEP-Cervix ESOPHAGOGASTRODUODENOSCOPY TRANSORAL DIAGNOSTIC 01/22/2014,2009 EGD LAPAROSCOPY SURG CHOLECYSTECTOMY 05/19/2011 LIG/TRNSXJ FLP TUBE ABDL/VAG APPR UNI/BI 2003 Tubal ligation OOPHORECTOMY PARTIAL/TOTAL UNI/BI 09/2014 laparoscopic left, CW, umbilical/upper abdominal adhesions seen benign PAST SURGICAL HISTORY OF 1998 tubal PAST SURGICAL HISTORY OF 2001 thyroid ablation FAMILY HISTORY Problem Relation Age of Onset Diabetes Mother Type 2 stroke Colon Cancer Father age 64 [place] Diabetes Father Type 2 Hypertension Father Coronary Artery Disease Father Hx of [place] Thyroid Sister hx of parathyroid disease/ hx of fibroids other (healthy) Brother other (healthy) Brother Allergies Daughter other (healthy) Daughter other (healthy) Son other (healthy) Son other (healthy) Son other (healthy) Son Colon Cancer Paternal Aunt x5 Colon Cancer Paternal Uncle x8 Social History Tobacco Use Smoking status: Every Day Packs/day: 1.00 Years: 20.00 Pack years: 20.00 Types: Cigarettes Smokeless tobacco: Never Vaping Use Vaping Use: Never used Substance Use Topics Alcohol use: No Drug use: No Reviewed current medications, allergies, past medical history, surgical history, family history and social history today. REVIEW OF SYSTEMS All other reviewed and negative other than HPI. VITALS: LMP 03/10/2010 Last 4 Encounter Wt Readings: Date: Wt: 02/20/2022 95.1 kg (209 lb 9.6 oz) 12/31/2021 94.3 kg (208 lb) 12/23/2021 94.3 kg (208 lb) 04/24/2021 91.2 kg (201 lb) PHYSICAL EXAMINATION: Patient is alert and oriented during visit. Answers appropriately. ASSESSMENT/PLAN: 1. Depression, unspecified depression type - ICD9: 311, ICD10: F32.A (primary diagnosis) - Discussed risks and benefits of new medication with the patient. Advised them to call if any side effects or questions. - DULOXETINE 20 MG CAPSULE,DELAYED RELEASE 2. Fatigue, unspecified type - ICD9: 780.79, ICD10: R53.83 Freddy Dee RTO in one month and prn. documented in this encounter [facility] 05-21-2022 History of Present illness Narrative Patient presents with: Acute Visit HPI:This Team Access Model visit is a virtual encounter. It required patient-provider interaction for the medical decision making as documented below. Patient has elected to have a visit through distance medicine. Patient is aware of limitations of performing the visit without a face to face visit in the office setting and agrees. Is very sleepy over the last few weeks Has a fit bit that says her quality of sleep has not changed. Has sleep apnea but cannot use it. Has asthma. Her breathing is not significantly changed. She does ask about depression. Not feeling necessarily down but is very fatigued. No infectious symptoms. Some constipation. Had had some weight gain. Feels different from her normal thyroid tired. Can't tolerated most antidepressants. MEDICATIONS: Current Outpatient Medications Medication Sig drospirenone, contraceptive, (SLYND) 4 mg (28) tabet Take 1/2 pill daily. Noncontraceptive purpose. Please apply company discount, process as self-pay if insurance does not cover. testosterone in versabase topical cream 1% (CPD) Apply 0.1ml to vulva twice daily. (Dispense with a 1 mL syringe and jar, not MDD) estradiol 0.01% estriol 0.01% topical cream (CPD) Apply 0.3 mL topically to arm 2 times daily (Dispense with 1 ml syringe) VIVELLE-DOT 0.0375 mg/24 hr Apply half patch, and change every other day. aware-patient is fast metabolizer, pt needs this sig for tolerability. 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 Take 1 tab by mouth once daily. blood sugar diagnostic (BLOOD GLUCOSE TEST) test strip Test blood sugar(s) 2 times daily. Insulin: No Lancets lancets Test blood sugar(s) 2 times daily. Insulin: No CPAP Mask refitting for new mask (FFM option please), heated tubing (YULISSA). Lifetime supplies. G47.33 ANDRESSA albuterol HFA (PROVENTIL HFA) 90 mcg/actuation inhaler Inhale 2 Puffs as instructed every 4 hours as needed. NEEDED FOR SHORTNESS OF BREATH AND WHEEZING lancets (FREESTYLE LANCETS) 28 gauge misc USE FOUR TIMES DAILY DIRECTED blood sugar diagnostic (FREESTYLE TEST) test strip TEST four times a day Blood-Glucose Meter (FREESTYLE LITE METER) monitoring kit 1 Each as needed. No current facility-administered medications for this visit. ALLERGIES: ALLERGIES Allergen Reactions Codeine GI Upset, Vomiting Percocet [Oxycodone* Vomiting Solumedrol [Methylp* Mental Status Change Made her rageful Vicodin [Hydrocodon* Vomiting Metformin Other: See Comments Myalgias. Norethindrone GI Upset myalgias, lip/mouth burn, SOB, nausea, dizziness Pepcid [Famotidine * Other: See Comments Dry eyes, mouth, rash, itching, anxiety Tapazole [[place]imazo* Hives PAST MEDICAL HISTORY Diagnosis Date Abdominal pain, chronic, right upper quadrant Asthma As a baby, then I outgrew it. Cystocele, midline 05/13/2009 Delayed emergence from anesthesia 09/27/2014 Depression Excessive or frequent menstruation Heavy periods GERD (gastroesophageal reflux disease) History of Graves' disease HSDD 10/21/2011 Hypothyroidism thyroid ablation/hypothyroid Irregular menstrual cycle Irregular periods menopause age 43 2009 in 2012 FSH 47 Moderate dysplasia of cervix 2001 Parent-child conflict 03/07/2013 Rectocele 05/13/2009 SVT (supraventricular tachycardia) ([facility]) Has seen cardiology at [facility], many episodes of fast heart rate are actually sinus tachycardia Syncope 05/14/2013 -Reported that she had one [...] systolic function is normal. EF = 63 5% (2D biplane) - The right ventricle is normal in size. Right ventricular systolic function is normal. - There are no significant valvular abnormalities. - Prior echocardiogram performed on 11/10/11 (stress echo). No significant change. - Tele Tobacco use Weight gain PAST SURGICAL HISTORY Procedure Laterality Date COLONOSCOPY 04/2017 says nl CONIZATION CERVIX W/WO D&C RPR ELTRD EXC 2001 LEEP-Cervix ESOPHAGOGASTRODUODENOSCOPY TRANSORAL DIAGNOSTIC 01/22/2014,2009 EGD LAPAROSCOPY SURG CHOLECYSTECTOMY 05/19/2011 LIG/TRNSXJ FLP TUBE ABDL/VAG APPR UNI/BI 2003 Tubal ligation OOPHORECTOMY PARTIAL/TOTAL UNI/BI 09/2014 laparoscopic left, CW, umbilical/upper abdominal adhesions seen benign PAST SURGICAL HISTORY OF 1998 tubal PAST SURGICAL HISTORY OF 2001 thyroid ablation FAMILY HISTORY Problem Relation Age of Onset Diabetes Mother Type 2 stroke Colon Cancer Father age 64 [place] Diabetes Father Type 2 Hypertension Father Coronary Artery Disease Father Hx of [place] Thyroid Sister hx of parathyroid disease/ hx of fibroids other (healthy) Brother other (healthy) Brother Allergies Daughter other (healthy) Daughter other (healthy) Son other (healthy) Son other (healthy) Son other (healthy) Son Colon Cancer Paternal Aunt x5 Colon Cancer Paternal Uncle x8 Social History Tobacco Use Smoking status: Every Day Packs/day: 1.00 Years: 20.00 Pack years: 20.00 Types: Cigarettes Smokeless tobacco: Never Vaping Use Vaping Use: Never used Substance Use Topics Alcohol use: No Drug use: No Reviewed current medications, allergies, past medical history, surgical history, family history and social history today. REVIEW OF SYSTEMS All other reviewed and negative other than HPI. HEALTH MAINTENANCE: LUNG CANCER SCREENING due on 04/23/2017 COLORECTAL CANCER SCREENING-has been ordered. MAMMOGRAM -has been orderd VITALS: LMP 03/10/2010 Last 4 Encounter Wt Readings: Date: Wt: 02/20/2022 95.1 kg (209 lb 9.6 oz) 12/31/2021 94.3 kg (208 lb) 12/23/2021 94.3 kg (208 lb) 04/24/2021 91.2 kg (201 lb) PHYSICAL EXAMINATION: Patient is alert and oriented during visit. Answers appropriately. ASSESSMENT/PLAN: 1. Fatigue, unspecified type - ICD9: 780.79, ICD10: R53.83 (primary diagnosis) - update with my chart update in one week. See if hormones need adjusted. - CBC + DIFF - COMP METABOLIC PANEL - TSH BLD - T4 FREE/FREE THYROX - T3 BLD - SED RATE WESTERGREN 2. ANDRESSA (obstructive sleep apnea) - ICD9: 327.23, ICD10: G47.33 - does not treat 3. Postablative hypothyroidism - ICD9: 244.1, ICD10: E89.0 As ablve. 4. Impaired glucose tolerance - ICD9: 790.22, ICD10: R73.02 Check labs. 5. Hyperglycemia - ICD9: 790.29, ICD10: R73.9 - HGB A1C Freddy Dee MD documented in this encounter [facility] 05-01-2022 History of Present illness Narrative I spent a total of 13 minutes on the date of the service which included preparing to see the patient, completing clinical documentation, obtaining and/or reviewing separately obtained history, and counseling and educating the patient/family/caregiver. Real-time telemedicine visit using audiovisual technology with patient's verbal consent. Name and verified. Virtual visit-scheduled May 01, 2022 Start review of records, labs, interim events 10:10 AM Maribell Garzon is a 56 year old year old female. HEPATITIS B(1 of 3 - 3-dose series) Never done SHINGRIX VACCINE(1 of 2) Never done LUNG CANCER SCREENING due on 04/23/2017 COLORECTAL CANCER SCREENING due on 02/11/2020 COVID-19 VACCINE(2 - Moderna series) due on 01/24/2021 MAMMOGRAM due on 06/16/2021 INFLUENZA(1) due on 2021 Reviewed details of history and plans from last visit, see that note for details. Since then: She had mistaken appt time, but luckily we were still able to connect. The pharmacy couldn't get the HT for 3 wks, she was hormone free during this time. Back on since 04/17/22. Back on the 0.3 bid for the estrogen, 1/2 of the slynd. Getting her mammograms via [facility], last 2019, she plans on going soon. The following histories was reviewed and updated today: OB History T6 L6 SAB0 IAB0 Ectopic1 Multiple0 Live Births6 Comment: menarche 12 FFTP 15 menopause age 43 ACTIVE PROBLEM LIST Postablative Hypothyroidism hx of [...] of Breast Estrogen Deficiency Adrenal Adenoma, Left Andressa (Obstructive Sleep Apnea) Other Chest Pain Nocturnal Oxygen Desaturation 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) Cyp2c9 Intermediate Metabolizer (Hcc) [id number] Rapid Metabolizer (Hcc) Ugt1a1 Intermediate Metabolizer (Hcc) Heterozygous Factor V Leiden Mutation (Hcc) Hormone Deficiency Not currently working due to disabled status-due to hormone deficiency Menopausal and Perimenopausal Disorder Mood Change PAST MEDICAL HISTORY Diagnosis Date Abdominal pain, chronic, right upper quadrant Asthma As a baby, then I outgrew it. Cystocele, midline 05/13/2009 Delayed emergence from anesthesia 09/27/2014 Depression Excessive or frequent menstruation Heavy periods GERD (gastroesophageal reflux disease) History of Graves' disease HSDD 10/21/2011 Hypothyroidism thyroid ablation/hypothyroid Irregular menstrual cycle Irregular periods menopause age 43 2009 in 2012 FSH 47 Moderate dysplasia of cervix 2001 Parent-child conflict 03/07/2013 Rectocele 05/13/2009 SVT (supraventricular tachycardia) ([facility]) Has seen cardiology at [facility], many episodes of fast heart rate are actually sinus tachycardia Syncope 05/14/2013 -Reported that she had one [...] systolic function is normal. EF = 63 5% (2D biplane) - The right ventricle is normal in size. Right ventricular systolic function is normal. - There are no significant valvular abnormalities. - Prior echocardiogram performed on 11/10/11 (stress echo). No significant change. - Tele Tobacco use Weight gain PAST SURGICAL HISTORY Procedure Laterality Date COLONOSCOPY 04/2017 says nl CONIZATION CERVIX W/WO D&C RPR ELTRD EXC 2001 LEEP-Cervix ESOPHAGOGASTRODUODENOSCOPY TRANSORAL DIAGNOSTIC 01/22/2014,2009 EGD LAPAROSCOPY SURG CHOLECYSTECTOMY 05/19/2011 LIG/TRNSXJ FLP TUBE ABDL/VAG APPR UNI/BI 2003 Tubal ligation OOPHORECTOMY PARTIAL/TOTAL UNI/BI 09/2014 laparoscopic left, CW, umbilical/upper abdominal adhesions seen benign PAST SURGICAL HISTORY OF 1998 tubal PAST SURGICAL HISTORY OF 2001 thyroid ablation FAMILY HISTORY Problem Relation Age of Onset Diabetes Mother Type 2 stroke Colon Cancer Father age 64 [place] Diabetes Father Type 2 Hypertension Father Coronary Artery Disease Father Hx of [place] Thyroid Sister hx of parathyroid disease/ hx of fibroids other (healthy) Brother other (healthy) Brother Allergies Daughter other (healthy) Daughter other (healthy) Son other (healthy) Son other (healthy) Son other (healthy) Son Colon Cancer Paternal Aunt x5 Colon Cancer Paternal Uncle x8 Social History Tobacco Use Smoking status: Every Day Packs/day: 1.00 Years: 20.00 Pack years: 20.00 Types: Cigarettes Smokeless tobacco: Never Vaping Use Vaping Use: Never used Substance Use Topics Alcohol use: No Drug use: No Social History Social History Narrative She lives in [place] [address] 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 She plans to initiate the testosterone within a few weeks once she feels fully adjusted to the estrogen and progestin again. She has set up several follow-up appointments with me, and has one scheduled in mid May. Reinforced plans from last visit. She will follow-up on getting her mammogram in the interim. No orders found for this visit on 05/01/22. Paul Dick MD Reviewed S+S to report for further evaluation. Note dictated using voice recognition software. documented in this encounter [facility] 05-01-2022 Instructions Paul Dick MD - 05/01/2022 10:23 AM EST Images from the original note were not included. Paul Dick MD, [facility] Professor of foaming machine operator & Reproductive Biology [facility] [place] Dept of Subspecialty Women's Health IMPORTANT NOTE: we cannot refill prescriptions without a yearly appointment. Appointments OFTEN BOOK OUT 6 months. Please ARRANGE appointments in advance so that prescription refill requests are not INTERUPPTED. Primary office numbers (at main campus, for general questions, all paperwork requests, etc): General questions ; scheduling appointments (please avoid faxing items to [place] office) Alternative contact numbers: [place], [employer]: The general scheduling line for all [employer] departments (after hours times available): [phone] I see patients in the following locations: Tuesdays, [facility] Wednesdays & , [facility] Mondays and Fridays: Add-on virtual visits only Getting an appointment when you need it: Calling the office offers the most options for appointments with me which can be virtual (video visit) or in person on a Wednesday, Wednesday, or . If needing an earlier appointment from what is offered, I can add you to my schedule if you send me a [employer] message. Since [employer] messages go to our nursing teams first, it's helpful if you write something like Per our conversation, you mentioned you can add me in for a virtual visit, here are some dates/times in the next few weeks that work for me . It is important to include in your message multiple date/time windows that works for you in the upcoming several weeks, given flexibility in my schedule will vary. Using this phrasing will help prevent delays in getting the message to me. Times I can add patients into the schedule include: Mondays, (virtual only) Tuesdays 3 or 3:30 PM, ([facility] or [place] office) Wednesdays 3:30 ([facility] or [facility] A10, most difficult day for me) before 11:30 or between 2:30-3:30, afternoon preferred ([facility] or [facility] A81) Fridays, (virtual only) For more routine gynecologic concerns (bleeding, vaginal infections, etc), we work with an amazing group of doctors and nurse practitioners who help each other out, not to mention the [facility] Express Care visits that are available online or at walk-in clinics throughout [facility]. Any clinician in the department can you see you for these more general needs, as I work as a learning consultant for more of the specialty hormonal concerns. If you don't get a timely response from me, please don't hesitate to be persistent! Occasionally we may have nurses and schedulers helping out temporarily in our office, causing some delays in getting the message to me. [employer] messages are allowed a 3 business day turnaround. For more urgent matters, it is always best to contact the office by phone. Hearing back about test results: I do not believe in the practice of no news is good news. You should always expect to receive results from our office no later than 2 weeks from when all of the tests have resulted. If you are having your testing done at an outside lab, please ensure that they have my correct fax number to send the results to: . Thank you for allowing me to participate in your care! Colon cancer screening is offered routinely starting at age 45, earlier if there is a family family history or symptoms. With a family history of colon cancer, we would like to start screening 10 years prior to the youngest family member (this is typically a first degree relative such as a mother, father, sibling or child). This should be arranged via your primary care doctor who will typically coordinate this; however, you can feel free to contact me to order if unable to obtain via your regular primary care doctor. documented in this encounter [facility] 03-27-2022 History of Present illness Narrative I spent a total of 51+ minutes on the date of the service which included preparing to see the patient, [id number] patient care, completing clinical documentation, obtaining and/or reviewing separately obtained history, performing a medically appropriate examination, counseling and educating the patient/family/caregiver, ordering medications, tests, or procedures, communicating with other HCPs (not separately reported), and care coordination (not separately reported). Real-time telemedicine visit using audiovisual technology with patient's verbal consent. Name and verified. Virtual visit-scheduled March 27, 2022 Start review of records, labs, interim events 1:22 PM Maribell Garzon is a 56 year old year old female. I have been seeing her since 11/13 in consultation by Dr. Angelo for hormonal concerns. Has had hormonal sensitivities throughout her life, difficulty tolerating any hormonal regimens. Premenstrual profound symptoms: heart racing, dizzy, muscle tension within 12 hours prior her cycle starting. Within 2 min of bleeding starting the sxs would resolve, this would occur consistently. Hx of ovarian cysts, was scheduled for surgery to have removed, she insisted on repeat ultrasound because felt that the cyst was resolved, she was right. Didn't need the surgery. However she did have left oophorectomy for benign reasons. LMP in 2009, age 42-43. Lab confirmed menopause-soon after gynecologic surgery. Since then symptoms are debilitating, disabled and cannot leave her house, difficult for her to drive. When in menopause many of the symptoms that she would experience premenstrually got much worse. Including arthralgias, told FM, she did not believe diagnosis. Anxiety was bad, tried multiple meds. Dry eyes, severe. Burning mouth (goes away completely with the ET). Brain fog. Has been seeing medical providers for multiple concerns. Is heterozygous for MTHFR mutation, never had a VTE with 6 pregnancies. Did see hematology who said can use estrogen, but prefer transdermals. She has also been dealing with hyperthyroidism. She is homebound, does get in the pool, and is outside in the garden, but not walking in the yard too much for any consistent amount of time. Got her COVID shot around 02/13 and multiple medical issues latter 2020 which she also feels impacted her hormones. 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 Discussed importance of slow adjustment of medications. We have been trying a variety of regimens as noted below, which she has not tolerated. We have been trying to get her to tolerate the E2 and P individually, though understands cannot use unopposed estrogen for prolonged periods for endometrial safety. Since working with very small doses, I told her no more than 3 months without addition of adequate progestin. Her prior doctors were offering compounded topical progesterone with ultrasound monitoring of the endometrium-discussed ultrasound cannot rule out cancer, and transdermal compounded formulations may not have adequate endometrial protection. Common themes over time include immediate symptom relief with the estrogen (mood, hair, moisture of mucous membranes), but the levels are not sustained with the typical frequency of the formulations. When she gets too much estrogen gets fluid retention under her skin (which she believes is due to estrogen drop, discussed fluid retention very common in the first 3-4 months of starting estrogen). She doesn't tolerate being without it, but can't tolerate being on it typically within 1-2 weeks, or sometimes even earlier. She felt well with high testosterone in the past (prior to her surgery). Feels the EstroGel twice daily was well-tolerated (was up to Estrogel 3 pumps a day- was tolerating, though what she has noted to be optimally tolerated in the past has varied during our different visits). At the 12/15 follow up she had noted noted 1/2 patch 0.25, changed every other day to the buttock instead of the abdomen has been best tolerated, with crossover 1-2 hours by leaving the older patch on. Thinks she felt best on 37.5 patch in the past. [place] that it was not enough, so on 12/15 increased to 37.5 vivelle patch utilizing her methods. Only filled a short supply of this because it is unopposed estrogen, and schedule close follow-up. On reserve discussed the idea of fill up the syringe with the biest and slowly use daily dose by increasing 0.1ml and titrating up as tolerated. At 02/14 noted she wasn't feeling better, but was actually starting to drive on the patches after 1 year of not being able to do so. We added Slynd, either 1/4 daily or 1/2 pill every other day. At 02/27/2022 follow-up Slynd 1/4 of tab daily was working well for her. Didn't like the patches though, she noted that she had EstroGel at home, and plan was to start low-dose yet frequent application, what ever minimum she tolerates slowly increased to effect. Also refilled the biest as is not clear which when she tolerated the best, spoke with our compounding pharmacy. 5 mg dose, which would be dispensed in 1 mL syringes, so that she can use 0.1-0.2 mL, 2-3 times a day as tolerated. INTERIM UPDATE 03/27/2022: She has been tolerating the 0.3 ml bid of the biest and inc to 1/2 pill of slynd (she is feeling better with this dose). She is driving, and doing a lot more! Feels like if she continues in this path may be able to start working again. Yesterday put up uriel lights outside but felt low estrogen the next day. She describes this feeling similar to her other symptoms noted above, especially musculoskeletal symptoms. No sex drive and has depression still. States essentially had been in a chair for approximately 5 years) ........ Previously tried/offered: Depoprovera couldn't walk. OCPs multiple sxs of panic/heart racing rushing noises in ear (bathroom fan would sound like an airplane). Testosterone, progesterone only, estrogen only-fluid retention, causing reflux, asthma-like reaction-typically occurs after a few months of use Antianxiety medications-tried multiple MHT (Vivelle) estrogen patch- felt too stimulated, even on the 25mcg. Had her changing every 2-3 days. Dose was increased to 50 which helped better with sxs, but legs would swell. Tried 4-6 wks for each. feels heart racing when the estrogen seems to be dropping. Within 2 hours of coming off the patch her HR would come down. 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 Saw cards and EP- told heart is not the problem, but a symptom of what is going on. Came off after 3 days, also felt drunk and dizzy with it. After she stopped taking it states took 1 mo for the drunken dizzy sensation to go away. estrogel- did ok initially, felt Better with twice a day, but at the higher dose legs would swell. 3 wks between dose adjustments, she did not like the fact that her HR would go up when waiting 24 hours between doses (felt that she was metabolizing the estrogen quickly). Divigel start with quarter or less of the packet daily, and slowly move up to the full dose as tolerated-cost prohibitive Bi est- the best she tried in the past, she felt like it was too much. The pharmacist was managing. 3 mg E2/0.5 of E3, she didn't feel comfortable with the way the pharmacist wanted to change the dosing. She felt that it was too E2 heavy. biest 08/15 rxed from us, 1 Click 0.25 g (which we typically use for vaginal local low-dose therapy) of the cream and warehouse picker a 1 mL syringe, start with use of 0.1 mL at a time, which she can use twice daily or 3 times daily if even needed. tried for 2 days, because had difficulty with the syringe so she tried the full dose of the 1 click instead. The heart started racing and fluctuation symptoms. Estratest and NET 0.[address] Trevino- kicked up GERD which she felt pushed into an asthma attack Prometrium 100 made her feel drunk and dizzy. Tried vaginally too, but bladder spasm. compounded transdermally after 20 mg starts getting similar symptoms. Estradiol 3 days into crying for no reason (although dr Trevino's notes says this was with FemHRT) No progestin that she has been able to tolerate-however she does sleep better with the Prometrium. She was nervous about the idea of Mirena because her daughter got hives, and it took a week for someone to remove it, nervous about anything that is not patient controlled. 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 I spoke with the genetics team, relevant info in 06/16 note. US 07/14: left oophorectomy, 4 mm endometrium, nl Cotesting 12/12 normal The following histories was reviewed and updated today: OB History T6 L6 SAB0 IAB0 Ectopic1 Multiple0 Live Births6 Comment: menarche 12 FFTP 15 menopause age 43 ACTIVE PROBLEM LIST Postablative Hypothyroidism hx of [...] of Breast Estrogen Deficiency Adrenal Adenoma, Left Andressa (Obstructive Sleep Apnea) Other Chest Pain Nocturnal Oxygen Desaturation 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) Cyp2c9 Intermediate Metabolizer (Hcc) [id number] Rapid Metabolizer (Hcc) Ugt1a1 Intermediate Metabolizer (Hcc) Heterozygous Factor V Leiden Mutation (Hcc) Hormone Deficiency Not currently working due to disabled status-due to hormone deficiency Menopausal and Perimenopausal Disorder Mood Change PAST MEDICAL HISTORY Diagnosis Date Abdominal pain, chronic, right upper quadrant Asthma As a baby, then I outgrew it. Cystocele, midline 05/13/2009 Delayed emergence from anesthesia 09/27/2014 Depression Excessive or frequent menstruation Heavy periods GERD (gastroesophageal reflux disease) History of Graves' disease HSDD 10/21/2011 Hypothyroidism thyroid ablation/hypothyroid Irregular menstrual cycle Irregular periods menopause age 43 2009 in 2012 FSH 47 Moderate dysplasia of cervix 2002 Parent-child conflict 03/07/2013 Rectocele 05/13/2009 SVT (supraventricular tachycardia) ([facility]) Has seen cardiology at [facility], many episodes of fast heart rate are actually sinus tachycardia Syncope 05/14/2013 -Reported that she had one [...] systolic function is normal. EF = 63 5% (2D biplane) - The right ventricle is normal in size. Right ventricular systolic function is normal. - There are no significant valvular abnormalities. - Prior echocardiogram performed on 11/10/11 (stress echo). No significant change. - Tele Tobacco use Weight gain PAST SURGICAL HISTORY Procedure Laterality Date COLONOSCOPY 04/2017 says nl CONIZATION CERVIX W/WO D&C RPR ELTRD EXC 2001 LEEP-Cervix ESOPHAGOGASTRODUODENOSCOPY TRANSORAL DIAGNOSTIC 01/22/2014,2009 EGD LAPAROSCOPY SURG CHOLECYSTECTOMY 05/19/2011 LIG/TRNSXJ FLP TUBE ABDL/VAG APPR UNI/BI 2003 Tubal ligation OOPHORECTOMY PARTIAL/TOTAL UNI/BI 09/2014 laparoscopic left, CW, umbilical/upper abdominal adhesions seen benign PAST SURGICAL HISTORY OF 1998 tubal PAST SURGICAL HISTORY OF 2001 thyroid ablation FAMILY HISTORY Problem Relation Age of Onset Diabetes Mother Type 2 stroke Colon Cancer Father age 64 LA Diabetes Father Type 2 Hypertension Father Coronary Artery Disease Father Hx of LA Thyroid Sister hx of parathyroid disease/ hx of fibroids other (healthy) Brother other (healthy) Brother Allergies Daughter other (healthy) Daughter other (healthy) Son other (healthy) Son other (healthy) Son other (healthy) Son Colon Cancer Paternal Aunt x5 Colon Cancer Paternal Uncle x8 Social History Tobacco Use Smoking status: Every Day Packs/day: 1.00 Years: 20.00 Pack years: 20.00 Types: Cigarettes Smokeless tobacco: Never Vaping Use Vaping Use: Never used Substance Use Topics Alcohol use: No Drug use: No Social History Social History Narrative She lives in [place] [id number] 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 Discussed need to wait 3-4 months minimum after hormone optimization for some of her concerns to truly feel better long-term. Since she has always been high testosterone in the past, prior to her surgery, at this point she would like to proceed with testosterone instead of further dose adjustment of the estrogen. Based on my calculation, she is likely getting approximately 1.2 mg of estradiol, as well as estriol. She is happy with the half pill of the Slynd. Will start testosterone at low, more dilute dosing so that she can use more frequently (as she had the same issues with the crashing of hormone levels throughout the 24 hours if testosterone used once daily). Will continue to prescribe with syringes instead of metered-dose dispenser. Start testosterone therapy aimed at 1 mg twice daily, and she will increase as tolerated until next visit, added into schedule on 05/01. Also asked her to contact my office to arrange further follow-up appointments in the spring, as almost all of her appointments thus far have been add-on overbooks on my end to maintain close follow-up during the transitions. Once we finalize the dosing where she feels the best, will check serum levels to make sure within appropriate ranges. No orders found for this visit on 03/27/22. Paul Dick MD Reviewed S+S to report for further evaluation. Note dictated using voice recognition software. documented in this encounter [facility] 03-27-2022 Instructions Paul Dick MD - 03/27/2022 1:35 PM EST Images from the original note were not included. Paul Dick MD, [facility] Professor of foaming machine operator & Reproductive Biology [facility] [place] [facility] Subspecialty Women's [facility] IMPORTANT NOTE: we cannot refill prescriptions without a yearly appointment. Appointments OFTEN BOOK OUT 6 months. Please ARRANGE appointments in advance so that prescription refill requests are not INTERUPPTED. Primary office numbers (at main campus, for general questions, all paperwork requests, etc): General questions ; scheduling appointments (please avoid faxing items to [place] office) Alternative contact numbers: [place], [employer]: The general scheduling line for all [employer] departments (after hours times available): [phone] I see patients in the following locations: Tuesdays, [facility] Wednesdays & , [facility] Mondays and Fridays: Add-on virtual visits only Getting an appointment when you need it: Calling the office offers the most options for appointments with me which can be virtual (video visit) or in person on a Wednesday, Wednesday, or . If needing an earlier appointment from what is offered, I can add you to my schedule if you send me a [employer] message. Since [employer] messages go to our nursing teams first, it's helpful if you write something like Per our conversation, you mentioned you can add me in for a virtual visit, here are some dates/times in the next few weeks that work for me . It is important to include in your message multiple date/time windows that works for you in the upcoming several weeks, given flexibility in my schedule will vary. Using this phrasing will help prevent delays in getting the message to me. Times I can add patients into the schedule include: Mondays, (virtual only) Tuesdays 3 or 3:30 PM, (virtual or [place] office) Wednesdays 3:30 (virtual or [facility] A10, most difficult day for me) before 11:30 or between 2:30-3:30, afternoon preferred ([facility] or [facility] [place] A81) Fridays, (virtual only) For more routine gynecologic concerns (bleeding, vaginal infections, etc), we work with an amazing group of doctors and nurse practitioners who help each other out, not to mention the [facility] Express Care visits that are available online or at walk-in clinics throughout [facility]. Any clinician in the department can you see you for these more general needs, as I work as a learning consultant for more of the specialty hormonal concerns. If you don't get a timely response from me, please don't hesitate to be persistent! Occasionally we may have nurses and schedulers helping out temporarily in our office, causing some delays in getting the message to me. [employer] messages are allowed a 3 business day turnaround. For more urgent matters, it is always best to contact the office by phone. Hearing back about test results: I do not believe in the practice of no news is good news. You should always expect to receive results from our office no later than 2 weeks from when all of the tests have resulted. If you are having your testing done at an outside lab, please ensure that they have my correct fax number to send the results to: . Thank you for allowing me to participate in your care! Colon cancer screening is offered routinely starting at age 45, earlier if there is a family family history or symptoms. With a family history of colon cancer, we would like to start screening 10 years prior to the youngest family member (this is typically a first degree relative such as a mother, father, sibling or child). This should be arranged via your primary care doctor who will typically coordinate this; however, you can feel free to contact me to order if unable to obtain via your regular primary care doctor. documented in this encounter [facility] 03-16-2022 Miscellaneous Notes Spoke with patient and asking to have Vyvanse discontinued from her medication list. Unable to take due to side effects. Taken care of as patient requested. States that her son had attempted to fill from her MyChart. She has since taken care of this so it can't happen again. documented in this encounter [facility] 02-27-2022 History of Present illness Narrative I spent a total of 49 minutes on the date of the service which included preparing to see the patient, [id number] patient care, completing clinical documentation, counseling and educating the patient/family/caregiver, ordering medications, tests, or procedures, communicating with other HCPs (not separately reported), and care coordination (not separately reported). Real-time telemedicine visit using audiovisual technology with patient's verbal consent. Name and verified. Virtual visit-scheduled February 27, 2022 Start review of records, labs, interim events 1:00 PM Maribell Garzon is a 56 year old year old female. I have been seeing her since 11/[address] Angelo for hormonal concerns. Has had hormonal sensitivities throughout her life, difficulty tolerating any hormonal regimens. Premenstrual profound symptoms: heart racing, dizzy, muscle tension within 12 hours prior her cycle starting. Within 2 min of bleeding starting the sxs would resolve, this would occur consistently. Hx of ovarian cysts, was scheduled for surgery to have removed, she insisted on repeat ultrasound because felt that the cyst was resolved, she was right. Didn't need the surgery. However she did have left oophorectomy for benign reasons. LMP in 2009, age 42-43. Lab confirmed menopause-soon after gynecologic surgery. Since then symptoms are debilitating, disabled and cannot leave her house, difficult for her to drive. When in menopause many of the symptoms that she would experience premenstrually got much worse. Including arthralgias, told fibromyalgia, she did not believe diagnosis. Anxiety was bad, tried multiple meds. Dry eyes, severe. Burning mouth (goes away completely with the ET). Brain fog. Has been seeing medical providers for multiple concerns. Is heterozygous for MTHFR mutation, never had a VTE with 6 pregnancies. Did see hematology who said can use estrogen, but prefer transdermals. She has also been dealing with hyperthyroidism. She is homebound, does get in the pool, and is outside in the garden, but not walking in the yard too much for any consistent amount of time. Got her COVID shot around 02/13 and multiple medical issues latter 2020 which she also feels impacted her hormones. 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 Discussed importance of slow adjustment of medications. We have been trying a variety of regimens as noted below, which she has not tolerated. We have been trying to get her to tolerate the E2 and P individually, though understands cannot use unopposed estrogen for prolonged periods for endometrial safety. Since working with very small doses, I told her no more than 3 months without addition of adequate progestin. Her prior doctors were offering compounded topical progesterone with ultrasound monitoring of the endometrium-discussed ultrasound cannot rule out cancer, and transdermal compounded formulations may not have adequate endometrial protection. Common themes over time include immediate symptom relief with the estrogen (mood, hair, moisture of mucous membranes), but the levels are not sustained with the typical frequency of the formulations. When she gets too much estrogen gets fluid retention. She doesn't tolerate being without it, but can't tolerate typically within 1-2 weeks of it, or sometimes even earlier. At the 12/15 follow up she had noted noted 1/2 patch 0.25, changed every other day to the buttock instead of the abdomen has been best tolerated, with crossover 1-2 hours by leaving the older patch on. Thinks she felt best on 37.5 patch in the past. [place] that it was not enough, so on 12/15 increased to 37.5 vivelle patch utilizing her methods. Only filled a short supply of this because it is unopposed estrogen, and schedule close follow-up. On reserve discussed the idea of fill up the syringe with the biest and slowly use daily dose by increasing 0.1ml and titrating up as tolerated, as per our plans from past visits. On 01/27/2022: With this last increase nothing got better Initially stated that she feels that some symptoms are worse, but in further discussion Depression and Dry skin got better, and quickly went back to her baseline. She feels that the swelling is from the drop in estrogen times. Driving a car again, which she had not driven in past 1 yr ! Feels like she is at the PMS stage of what she used to feel Feels that the swelling is underneath the skin Feels like no one is listening to her, and she felt well with high testosterone in the past (prior to her surgery) Notes that she has gained weight, states up to 207 pounds We added Slynd, either half pill every other day or quarter pill daily and kept estrogen dosing the same for now. Need to find a progestin that she tolerates to be able to continue the estrogen. Discussed trial of testosterone in the future, but emphasized need to make 1 change at a time. Discussed weight trends are overall stable from her past baseline. Difficult to assess whether there is Lipedema versus edema, etc.virtually, was hopeful that the antidiuretic effect of the progestin will help INTERIM UPDATE 02/27/2022: She feels the HT patches aren't for her. Feels a reyna of HT and then nothing within 24 hours. The fluctuation is very hard on her, and feels that the swelling is related to the fluctuation. Estrogel twice daily feels that she tolerated best. Slynd is working out well for her, using 1/4 of tablet daily. In the past was up to Estrogel 3 pumps a day- was tolerating. She is unsure if estrogen is next best step. She is leaning towards the testosterone use. ........ Previously tried/offered: Depoprovera couldn't walk. OCPs multiple sxs of panic/heart racing rushing noises in ear (bathroom fan would sound like an airplane). Testosterone, progesterone only, estrogen only-fluid retention, causing reflux, asthma-like reaction-typically occurs after a few months of use Antianxiety medications-tried multiple MHT (Vivelle) estrogen patch- felt too stimulated, even on the 25mcg. Had her changing every 2-3 days. Dose was increased to 50 which helped better with sxs, but legs would swell. Tried 4-6 wks for each. feels heart racing when the estrogen seems to be dropping. Within 2 hours of coming off the patch her HR would come down. [facility] [employer] set up operator of Vivelle patch: feels it depletes too quickly Combipatch- HR was high 130s sinus tach noted with PCP, so was told her to come off due to possible allergy. Saw cards and EP- told heart is not the problem, but a symptom of what is going on. Came off after 3 days, also felt drunk and dizzy with it. After she stopped taking it states took 1 mo for the drunken dizzy sensation to go away. estrogel- did ok initially, felt Better with twice a day, but at the higher dose legs would swell. 3 wks between dose adjustments, she did not like the fact that her HR would go up when waiting 24 hours between doses (felt that she was metabolizing the estrogen quickly). Divigel start with quarter or less of the packet daily, and slowly move up to the full dose as tolerated-cost prohibitive Bi est- the best she tried in the past, she felt like it was too much. The pharmacist was managing. 3 mg E2/0.5 of E3, she didn't feel comfortable with the way the pharmacist wanted to change the dosing. She felt that it was too E2 heavy. biest 08/15 rxed from us, 1 Click 0.25 g (which we typically use for vaginal local low-dose therapy) of the cream and warehouse picker a 1 mL syringe, start with use of 0.1 mL at a time, which she can use twice daily or 3 times daily if even needed. tried for 2 days, because had difficulty with the syringe so she tried the full dose of the 1 click instead. The heart started racing and fluctuation symptoms. Estratest and NET 0.[address] Trevino- kicked up GERD which she felt pushed into an asthma attack Prometrium 100 made her feel drunk and dizzy. Tried vaginally too, but bladder spasm. compounded transdermally after 20 mg starts getting similar symptoms. Estradiol 3 days into crying for no reason (although dr Trevino's notes says this was with FemHRT) No progestin that she has been able to tolerate-however she does sleep better with the Prometrium. She was nervous about the idea of Mirena because her daughter got hives, and it took a week for someone to remove it, nervous about anything that is not patient controlled. 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 I spoke with the genetics team, relevant info in 06/16 note. US 07/14: left oophorectomy, 4 mm endometrium, nl Cotesting 12/12 normal The following histories was reviewed and updated today: OB History T6 L6 SAB0 IAB0 Ectopic1 Multiple0 Live Births6 Comment: menarche 12 FFTP 15 menopause age 43 ACTIVE PROBLEM LIST Postablative Hypothyroidism hx of low vitamin D Panic Disorder With Agoraphobia Chronic Fatigue Fibromyalgia Syndrome Blood Pressure Elevated Without History of Htn Impaired Glucose Tolerance Svt (Supraventricular Tachycardia) ([facility]) Ptsd (Post-Traumatic Stress Disorder) Attention Deficit Hyperactivity [...] of Breast Estrogen Deficiency Adrenal Adenoma, Left Andressa (Obstructive Sleep Apnea) Other Chest Pain Nocturnal Oxygen Desaturation 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) Cyp2c9 Intermediate Metabolizer (Hcc) Dyc6r09 Rapid Metabolizer (Hcc) Ugt1a1 Intermediate Metabolizer (Hcc) Heterozygous Factor V Leiden Mutation (Hcc) Hormone Deficiency Not currently working due to disabled status-due to hormone deficiency Menopausal and Perimenopausal Disorder Mood Change PAST MEDICAL HISTORY Diagnosis Date Abdominal pain, chronic, right upper quadrant Asthma As a baby, then I outgrew it. Cystocele, midline 05/13/2009 Delayed emergence from anesthesia 09/27/2014 Depression Excessive or frequent menstruation Heavy periods GERD (gastroesophageal reflux disease) History of Graves' disease HSDD 10/21/2011 Hypothyroidism thyroid ablation/hypothyroid Irregular menstrual cycle Irregular periods menopause age 43 2009 in 2012 FSH 47 Moderate dysplasia of cervix 2002 Parent-child conflict 03/07/2013 Rectocele 05/13/2009 SVT (supraventricular tachycardia) ([facility]) Has seen cardiology at OSH, many episodes of fast heart rate are actually sinus tachycardia Syncope 05/14/2013 -Reported that she had one [...] systolic function is normal. EF = 63 5% (2D biplane) - The right ventricle is normal in size. Right ventricular systolic function is normal. - There are no significant valvular abnormalities. - Prior echocardiogram performed on 11/10/11 (stress echo). No significant change. - Tele Tobacco use Weight gain PAST SURGICAL HISTORY Procedure Laterality Date COLONOSCOPY 04/2017 says nl CONIZATION CERVIX W/WO D&C RPR ELTRD EXC 2001 LEEP-Cervix ESOPHAGOGASTRODUODENOSCOPY TRANSORAL DIAGNOSTIC 01/22/2014,2009 EGD LAPAROSCOPY SURG CHOLECYSTECTOMY 05/19/2011 LIG/TRNSXJ FLP TUBE ABDL/VAG APPR UNI/BI 2003 Tubal ligation OOPHORECTOMY PARTIAL/TOTAL UNI/BI 09/2014 laparoscopic left, CW, umbilical/upper abdominal adhesions seen benign PAST SURGICAL HISTORY OF 1998 tubal PAST SURGICAL HISTORY OF 2001 thyroid ablation FAMILY HISTORY Problem Relation Age of Onset Diabetes Mother Type 2 stroke Colon Cancer Father age 64 LA Diabetes Father Type 2 Hypertension Father Coronary Artery Disease Father Hx of [place] Thyroid Sister hx of parathyroid disease/ hx of fibroids other (healthy) Brother other (healthy) Brother Allergies Daughter other (healthy) Daughter other (healthy) Son other (healthy) Son other (healthy) Son other (healthy) Son Colon Cancer Paternal Aunt x5 Colon Cancer Paternal Uncle x8 Social History Tobacco Use Smoking status: Every Day Packs/day: 1.00 Years: 20.00 Pack years: 20.00 Types: Cigarettes Smokeless tobacco: Never Vaping Use Vaping Use: Never used Substance Use Topics Alcohol use: No Drug use: No Social History Social History Narrative She lives in [place] [address] 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 she believes she has some of the EstroGel at home, will start with low-dose yet frequent application, what ever minimum she tolerates slowly increased to effect. Will also refill the biest as is not clear which when she tolerated the best. Spoke with our compounding pharmacy. She will experiment with that as well, at the 5 mg dose, which would be dispensed in 1 mL syringes, so that she can use 0.1-0.2 mL, 2-3 times a day as tolerated,. Added her into schedule on 03/27 at 130 to see how she is doing with the plan. Can discuss either finalizing estradiol dosing or switching to testosterone at that time accordingly. Paul Dick MD Reviewed S+S to report for further evaluation. Note dictated using voice recognition software. documented in this encounter [facility] 02-27-2022 Instructions Paul Dick MD - 02/27/2022 1:08 PM EDT Images from the original note were not included. Paul Dick MD, [facility] Professor of foaming machine operator & Reproductive Biology [facility] [place] Dept of Subspecialty Women's Health IMPORTANT NOTE: we cannot refill prescriptions without a yearly appointment. Appointments OFTEN BOOK OUT 6 months. Please ARRANGE appointments in advance so that prescription refill requests are not INTERUPPTED. Primary office numbers (at main campus, for general questions, all paperwork requests, etc): General questions ; scheduling appointments (please avoid faxing items to [place] office) Alternative contact numbers: [facility] [employer]: The general scheduling line for all [employer] departments (after hours times available): [phone] I see patients in the following locations: Tuesdays, [facility] Wednesdays & , [facility] [place] Mondays and Fridays: Add-on virtual visits only Getting an appointment when you need it: Calling the office offers the most options for appointments with me which can be virtual (video visit) or in person on a Wednesday, Wednesday, or . If needing an earlier appointment from what is offered, I can add you to my schedule if you send me a MyChart message. Since MyChart messages go to our nursing teams first, it's helpful if you write something like Per our conversation, you mentioned you can add me in for a virtual visit, here are some dates/times in the next few weeks that work for me . It is important to include in your message multiple date/time windows that works for you in the upcoming several weeks, given flexibility in my schedule will vary. Using this phrasing will help prevent delays in getting the message to me. Times I can add patients into the schedule include: Mondays, (virtual only) Tuesdays 3 or 3:30 PM, (virtual or [place] office) Wednesdays 3:30 (virtual or [facility] [place] A10, most difficult day for me) before 11:30 or between 2:30-3:30, afternoon preferred (virtual or [facility] [place] A81) Fridays, (virtual only) For more routine gynecologic concerns (bleeding, vaginal infections, etc), we work with an amazing group of doctors and nurse practitioners who help each other out, not to mention the [facility] Express Care visits that are available online or at walk-in clinics throughout [facility]. Any clinician in the department can you see you for these more general needs, as I work as a learning consultant for more of the specialty hormonal concerns. If you don't get a timely response from me, please don't hesitate to be persistent! Occasionally we may have nurses and schedulers helping out temporarily in our office, causing some delays in getting the message to me. MyChart messages are allowed a 3 business day turnaround. For more urgent matters, it is always best to contact the office by phone. Hearing back about test results :] I do not believe in the practice of no news is good news. You should always expect to receive results from our office no later than 2 weeks from when all of the tests have resulted. If you are having your testing done at an outside lab, please ensure that they have my correct fax number to send the results to: . Thank you for allowing me to participate in your care! Colon cancer screening is offered routinely starting at age 45, earlier if there is a family family history or symptoms. With a family history of colon cancer, we would like to start screening 10 years prior to the youngest family member (this is typically a first degree relative such as a mother, father, sibling or child). This should be arranged via your primary care doctor who will typically coordinate this; however, you can feel free to contact me to order if unable to obtain via your regular primary care doctor. documented in this encounter [facility] 02-20-2022 History of Present illness Narrative 02/20/2022 Patient presents with: Hoarseness: X7 days SUBJECTIVE: This is a 56 year old that is here today for Above Complaints. Hoarse for the last seen days. Went to ER because she thought she was having asthma attacks. Had chest xray which was negative.Admits before her hoarseness started she had chills, body aches, sinus pain/pressure and cough. Still with cough which is productive of clear sputum at times. Has completed three COVID-19 tests all negative. Reports this AM when she got up she checked her pulse ox at home and she was 85% but then she coughed and it went up to 95%. Reports she quit smoking five days ago. Not taking any OTC medications. Has been trying to rest her voice. Denies fevers, chills, headache, nasal congestion, rhinorrhea, sore throat, difficult or painful swallowing, choking, tongue/lip swelling, SOB, dyspnea, wheezing, orthopnea, chest pain, current or past reflux PAST MEDICAL HISTORY Diagnosis Date Abdominal pain, chronic, right upper quadrant Asthma As a baby, then I outgrew it. Cystocele, midline 05/13/2009 Delayed emergence from anesthesia 09/27/2014 Depression Excessive or frequent menstruation Heavy periods GERD (gastroesophageal reflux disease) History of Graves' disease HSDD 10/21/2011 Hypothyroidism thyroid ablation/hypothyroid Irregular menstrual cycle Irregular periods menopause age 43 2009 in 2012 FSH 47 Moderate dysplasia of cervix 2001 Parent-child conflict 03/07/2013 Rectocele 05/13/2009 SVT (supraventricular tachycardia) (HCC) Has seen cardiology at OSH, many episodes of fast heart rate are actually sinus tachycardia Syncope 05/14/2013 -Reported that she had one [...] systolic function is normal. EF = 63 5% (2D biplane) - The right ventricle is normal in size. Right ventricular systolic function is normal. - There are no significant valvular abnormalities. - Prior echocardiogram performed on 11/10/11 (stress echo). No significant change. - Tele Tobacco use Weight gain ALLERGIES Codeine, Percocet [Oxycodone-Acetaminophen], Solumedrol [Methylprednisolone Sodium Succ], Vicodin [Hydrocodone-Acetaminophen], Metformin, Norethindrone, Pepcid [Famotidine (Pf)], and Tapazole [Methimazole] MEDICATIONS Current Outpatient Medications Medication Sig lisdexamfetamine (VYVANSE) 10 mg capsule Take 1 capsule by mouth once daily for 30 days. drospirenone, contraceptive, (SLYND) 4 mg (28) tabet Take 1 tablet by mouth every other day. Take 1 pill by mouth every other day. Noncontraceptive purpose, self-pay. Please apply company discount VIVELLE-DOT 0.0375 mg/24 hr Apply half patch, and change every other day. MD aware-patient is fast metabolizer, pt needs this sig for tolerability. 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 Take 1 tab by mouth once daily. blood sugar diagnostic (BLOOD GLUCOSE TEST) test strip Test blood sugar(s) 2 times daily. Insulin: No estradiol 0.01% estriol 0.01% topical cream (CPD) Use 1 click (0.25 g) of cream to thigh once daily. (provider aware of non-vaginal use) Lancets lancets Test blood sugar(s) 2 times daily. Insulin: No CPAP Mask refitting for new mask (FFM option please), heated tubing (YULISSA). Lifetime supplies. G47.33 ANDRESSA albuterol HFA (PROVENTIL HFA) 90 mcg/actuation inhaler Inhale 2 Puffs as instructed every 4 hours as needed. NEEDED FOR SHORTNESS OF BREATH AND WHEEZING lancets (FREESTYLE LANCETS) 28 gauge misc USE FOUR TIMES DAILY DIRECTED blood sugar diagnostic (FREESTYLE TEST) test strip TEST four times a day Blood-Glucose Meter (FREESTYLE LITE METER) monitoring kit 1 Each as needed. No current facility-administered medications for this visit. Medications and allergies reviewed by this provider. SOCIAL HISTORY Social History Tobacco Use Smoking status: Every Day Packs/day: 1.00 Years: 20.00 Pack years: 20.00 Types: Cigarettes Smokeless tobacco: Never Vaping Use Vaping Use: Never used Substance Use Topics Alcohol use: No Drug use: No REVIEW OF SYSTEMS All other reviewed and negative other than HPI. OBJECTIVE: BP 132/80 Pulse 80 Temp 36.9 C (98.4 F) Resp 20 Wt 95.1 kg (209 lb 9.6 oz) LMP 03/10/2010 SpO2 97% BMI 37.43 kg/m . Vital signs reviewed by this provider. APPEARANCE Well appearing, alert, in no acute distress, well-hydrated, well nourished. Voice hoarse EYES conjunctiva and sclera normal. EARS External ears normal, canals clear THROAT normal, no erythema NECK Supple, no adenopathy; thyroid symmetric, normal size, no bruits HEART RRR with normal S1 and S2, no murmurs, no gallops, no JVD appreciated LUNG clear to auscultation. No wheezes, rhonchi, or rales EXTREMITIES Extremities normal, No deformities, No skin discoloration, No edema, and Normal pulses bilaterally. SKIN Skin color, texture, turgor normal, no suspicious rashes or lesions HEPATITIS B(1 of 3 - 3-dose series) Never done SHINGRIX VACCINE(1 of 2) Never done LUNG CANCER SCREENING due on 04/23/2017 COLORECTAL CANCER SCREENING due on 02/11/2020 COVID-19 VACCINE(2 - Moderna series) due on 01/24/2021 MAMMOGRAM due on 06/16/2021 INFLUENZA(1) due on 2021 PNEUMOCOCCAL(1 - PCV) due on 05/27/2031 ANNUAL PCP TEAM CHRONIC DISEASE VISIT due on 02/20/2023 PAP TESTING due on 11/25/2023 HPV TESTING due on 11/25/2023 LIPID SCREEN due on 12/03/2024 DIABETES SCREEN due on 12/31/2024 DTAP,TDAP,TD(2 - Td or Tdap) due on 01/26/2028 HEPATITIS C SCREENING Completed HIV SCREENING Completed ASSESSMENT/PLAN: 1. Voice hoarseness - ICD9: 784.42, ICD10: R49.0 -possibly viral - voice rest - no red flag symptoms or exam finding - red flag symptoms discussed, verbalizes understanding - if persists for 1-2 more weeks recommend she see ENT - continue to stay tobacco free - CONSULT TO ENT Dona Munoz APRN.CNP Prescription instructions reviewed with patient as applicable. Patient advised if symptoms do not improve or if symptoms worsen sooner, to contact their primary care physician. Potential red flag symptoms discussed with the patient. Reviewed appropriate action plan to take if red flag symptoms occur. Patient agreeable to treatment plan. I spent a total of 24 minutes on the date of the service which included preparing to see the patient, [id number] patient care, completing clinical documentation, obtaining and/or reviewing separately obtained history, performing a medically appropriate examination, and counseling and educating the patient/family/caregiver. documented in this encounter [facility] 02-20-2022 Miscellaneous Notes Reviewed. Dona Munoz APRN.CNP Patient reports hoarseness and inability to talk much will discuss symptoms at appointment. Patient angry that this nurse called to discuss appointment request/symptoms. Nurse triage completed with limited answers. Protocol recommends see provider within 3 days with minimal answers received. appointment already scheduled for today. Reason for Disposition [1] Hoarseness AND [2] risk factor (e.g., recent neck surgery or intubation, smoker, unexpected weight loss) (Exception: current common cold or mild URI symptoms) Answer Assessment - Initial Assessment Questions 1. DESCRIPTION: Hoarse and raspy sounding. Will discuss it at the visit. 2. SEVERITY: Will discuss at the visit 3. ONSET: 10 days ago 4. COUGH: Yes but will discuss at the visit 5. FEVER: No 6. ALLERGIES: Not answered 7. IRRITANTS: Not answered 8. CAUSE: Not answered 9. OTHER SYMPTOMS: No chest pain or SOB. No fever. Will answer all other questions at appointment. Patient tested negative for Covid. Not sure when. Patient reports she was told not to talk a lot d/t hoarseness but didn't report by who. 10. : Not answered. Protocols used: [id number] documented in this encounter [facility] 02-02-2022 Miscellaneous Notes Patient has been identified by name and date of : Yes Requested Prescriptions Pending Prescriptions Disp Refills lisdexamfetamine (VYVANSE) 10 mg capsule 30 capsule 0 Sig: Take 1 capsule by mouth once daily for 30 days. RX INSTRUCTIONS: Patient aware RX will be sent to pharmacy. No need to notify patient. MyChart request. Sudha Pink LPN documented in this encounter [facility] 01-27-2022 History of Present illness Narrative I spent a total of 30+ minutes on the date of the service which included preparing to see the patient, [id number] patient care, completing clinical documentation, obtaining and/or reviewing separately obtained history, counseling and educating the patient/family/caregiver, and ordering medications, tests, or procedures. Virtual visit-scheduled January 27, 2022 Start review of records, labs, interim events 1:40 PM Maribell Garzon is a 56 year old year old female. HEPATITIS B(1 of 3 - 3-dose series) Never done SHINGRIX VACCINE(1 of 2) Never done LUNG CANCER SCREENING due on 04/23/2017 COLORECTAL CANCER SCREENING due on 02/11/2020 COVID-19 VACCINE(2 - Moderna series) due on 01/24/2021 MAMMOGRAM due on 06/16/2021-active order present INFLUENZA(1) due on 2021 I have been seeing her since 11/[address] Angelo for hormonal concerns. Has had hormonal sensitivities throughout her life, difficulty tolerating any hormonal regimens. Premenstrual profound symptoms: heart racing, dizzy, muscle tension within 12 hours prior her cycle starting. Within 2 min of bleeding starting the sxs would resolve, this would occur consistently. Hx of ovarian cysts, was scheduled for surgery to have removed, she insisted on repeat ultrasound because felt that the cyst was resolved, she was right. Didn't need the surgery. However she did have left oophorectomy for benign reasons. LMP in 2009, age 42-43. Lab confirmed menopause-soon after gynecologic surgery. Since then symptoms are debilitating, disabled and cannot leave her house, difficult for her to drive. When in menopause many of the symptoms that she would experience premenstrually got much worse. Including arthralgias, told fibromyalgia, she did not believe diagnosis. Anxiety was bad, tried multiple meds. Dry eyes, severe. Burning mouth (goes away completely with the ET). Brain fog. Has been seeing medical providers for multiple concerns. Is heterozygous for MTHFR mutation, never had a VTE with 6 pregnancies. Did see hematology who said can use estrogen, but prefer transdermals. She has also been dealing with hyperthyroidism. She is homebound, does get in the pool, and is outside in the garden, but not walking in the yard too much for any consistent amount of time. Got her COVID shot around 02/13 and multiple medical issues latter 2020 which she also feels impacted her hormones. 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 Discussed importance of slow adjustment of medications. We have been trying a variety of regimens as noted below, which she has not tolerated. We have been trying to get her to tolerate the E2 and P individually, though understands cannot use unopposed estrogen for prolonged periods for endometrial safety. Since working with very small doses, I told her no more than 3 months without addition of adequate progestin. Her prior doctors were offering compounded topical progesterone with ultrasound monitoring of the endometrium-discussed ultrasound cannot rule out cancer, and transdermal compounded formulations may not have adequate endometrial protection. Common themes over time include immediate symptom relief with the estrogen (mood, hair, moisture of mucous membranes), but the levels are not sustained with the typical frequency of the formulations. When she gets too much estrogen gets fluid retention. She doesn't tolerate being without it, but can't tolerate typically within 1-2 weeks of it, or sometimes even earlier. ........ Previously tried/offered: Depoprovera couldn't walk. OCPs multiple sxs of panic/heart racing rushing noises in ear (bathroom fan would sound like an airplane). Testosterone, progesterone only, estrogen only-fluid retention, causing reflux, asthma-like reaction-typically occurs after a few months of use Antianxiety medications-tried multiple MHT (Vivelle) estrogen patch- felt too stimulated, even on the 25mcg. Had her changing every 2-3 days. Dose was increased to 50 which helped better with sxs, but legs would swell. Tried 4-6 wks for each. feels heart racing when the estrogen seems to be dropping. Within 2 hours of coming off the patch her HR would come down. 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 Saw cards and EP- told heart is not the problem, but a symptom of what is going on. Came off after 3 days, also felt drunk and dizzy with it. After she stopped taking it states took 1 mo for the drunken dizzy sensation to go away. estrogel- did ok initially, felt Better with twice a day, but at the higher dose legs would swell. 3 wks between dose adjustments, she did not like the fact that her HR would go up when waiting 24 hours between doses (felt that she was metabolizing the estrogen quickly). Divigel start with quarter or less of the packet daily, and slowly move up to the full dose as tolerated-cost prohibitive Bi est- the best she tried in the past, she felt like it was too much. The pharmacist was managing. 3 mg E2/0.5 of E3, she didn't feel comfortable with the way the pharmacist wanted to change the dosing. She felt that it was too E2 heavy. biest 08/15 rxed from us, 1 Click 0.25 g (which we typically use for vaginal local low-dose therapy) of the cream and warehouse picker a 1 mL syringe, start with use of 0.1 mL at a time, which she can use twice daily or 3 times daily if even needed. tried for 2 days, because had difficulty with the syringe so she tried the full dose of the 1 click instead. The heart started racing and fluctuation symptoms. Estratest and NET 0.[address] Trevino- kicked up GERD which she felt pushed into an asthma attack Prometrium 100 made her feel drunk and dizzy. Tried vaginally too, but bladder spasm. compounded transdermally after 20 mg starts getting similar symptoms. Estradiol 3 days into crying for no reason (although dr Trevino's notes says this was with FemHRT) No progestin that she has been able to tolerate-however she does sleep better with the Prometrium. She was nervous about the idea of Mirena because her daughter got hives, and it took a week for someone to remove it, nervous about anything that is not patient controlled. INTERIM UPDATE 01/27/2022: At the 12/15 follow up she had noted noted 1/2 patch 0.25, changed every other day to the buttock instead of the abdomen has been best tolerated, with crossover 1-2 hours by leaving the older patch on. Thinks she felt best on 37.5 patch in the past. [place] that it was not enough, so on 12/15 increased to 37.5 vivelle patch utilizing her methods. Only filled a short supply of this because it is unopposed estrogen, and schedule close follow-up for today. On reserve discussed the idea of fill up the syringe with the biest and slowly use daily dose by increasing 0.1ml and titrating up as tolerated, as per our plans from past visits. Now: With this last increase nothing got better Initially stated that she feels that some symptoms are worse, but in further discussion Depression and Dry skin got better, and quickly went back to her baseline. She feels that the swelling is from the drop in estrogen times. Driving a car again, which she had not driven in past 1 yr ! Feels like she is at the PMS stage of what she used to feel Feels that the swelling is underneath the skin Feels like no one is listening to her, and she felt well with high testosterone in the past (prior to her surgery) Notes that she has gained weight, states up to 207 pounds Last 10 Encounter Wt Readings: Date: Wt: 12/31/2021 208 lb (94.3 kg) 12/23/2021 208 lb (94.3 kg) 04/24/2021 201 lb (91.2 kg) 07/16/2020 206 lb 9.6 oz (93.7 kg) 07/12/2020 192 lb 8 oz (87.3 kg) 05/14/2020 211 lb 3.2 oz (95.8 kg) 03/13/2020 206 lb 12.8 oz (93.8 kg) 03/04/2020 204 lb (92.5 kg) 02/05/2020 202 lb (91.6 kg) 06/19/2019 201 lb (91.2 kg) Testosterone Date Value Ref Range Status 05/20/2020 31 8 - 60 ng/dL Final Comment: (NOTE) ADDITIONAL INFORMATION Testing performed by Liquid Chromatography-Tandem Mass Spectrometry (LC-MS/MS). This test was developed and its performance characteristics determined by [facility] in a manner consistent with CLIA requirements. This test has not been cleared or approved by the U.S. Food and Drug Administration. 12/04/2019 20 8 - 60 ng/dL Final Comment: (NOTE) ADDITIONAL INFORMATION Testing performed by Liquid Chromatography-Tandem Mass Spectrometry (LC-MS/MS). This test was developed and its performance characteristics determined by [facility] in a manner consistent with CLIA requirements. This test has not been cleared or approved by the U.S. Food and Drug Administration. 09/06/2019 23 8 - 60 ng/dL Final Comment: (NOTE) ADDITIONAL INFORMATION Testing performed by Liquid Chromatography-Tandem Mass Spectrometry (LC-MS/MS). This test was developed and its performance characteristics determined by [facility] in a manner consistent with CLIA requirements. This test has not been cleared or approved by the U.S. Food and Drug Administration. 08/16/2019 22 8 - 60 ng/dL Final Comment: (NOTE) ADDITIONAL INFORMATION Testing performed by Liquid Chromatography-Tandem Mass Spectrometry (LC-MS/MS). This test was developed and its performance characteristics determined by [facility] in a manner consistent with CLIA requirements. This test has not been cleared or approved by the U.S. Food and Drug Administration. 06/15/2019 30 8 - 60 ng/dL Final Comment: (NOTE) ADDITIONAL INFORMATION Testing performed by Liquid Chromatography-Tandem Mass Spectrometry (LC-MS/MS). This test was developed and its performance characteristics determined by [facility] in a manner consistent with CLIA requirements. This test has not been cleared or approved by the U.S. Food and Drug Administration. 12/12/2018 See Comment <40 ng/dL Final Comment: The total testosterone result is 20 ng/dL, the reference range of [facility] is 8 to 60 ng/dL. Disregard [facility] reference range. Interpret the result using the reference range provided by the performing laboratory. Results should not be compared to previously reported results using [facility]'s assay due to differences in methodology. Test performed by: [facility], [place], [place] Testing performed by Liquid Chromatography Tandem Mass Spectrometry. 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 I spoke with the genetics team, relevant info in 06/16 note. US 07/14: left oophorectomy, 4 mm endometrium, nl Cotesting 12/12 normal The following histories was reviewed and updated today: OB History T6 L6 SAB0 IAB0 Ectopic1 Multiple0 Live Births6 Comment: menarche 12 FFTP 15 menopause age 43 ACTIVE PROBLEM LIST Postablative Hypothyroidism hx of low vitamin D Panic Disorder With Agoraphobia Chronic Fatigue Fibromyalgia Syndrome Blood Pressure Elevated Without History of Htn Impaired Glucose Tolerance Svt (Supraventricular Tachycardia) ([facility]) Ptsd (Post-Traumatic Stress Disorder) Attention Deficit Hyperactivity Disorder (Adhd), Combined Type Recurrent Major Depressive Disorder, in Partial Remission ([facility]) menopause age 43 Tobacco Use Gerd Without Esophagitis Simple Chronic Bronchitis ([facility]) Irritable Bowel Syndrome With Diarrhea Systemic Lupus Erythematosus ([facility]) Burning Sensation of Mouth Burning Sensation of Skin Sleep Difficulties Mitral Valve Prolapse Screening for Malignant Neoplasm of The Cervix Visit for Pelvic Exam Encounter for Screening Mammogram for Malignant Neoplasm of Breast Estrogen Deficiency Adrenal Adenoma, Left [place] (Obstructive Sleep Apnea) Other Chest Pain Nocturnal Oxygen Desaturation 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) Cyp2c9 Intermediate Metabolizer (Hcc) [id number] Rapid Metabolizer (Hcc) Ugt1a1 Intermediate Metabolizer (Hcc) Heterozygous Factor V Leiden Mutation ([facility]cc) Hormone Deficiency PAST MEDICAL HISTORY Diagnosis Date Abdominal pain, chronic, right upper quadrant Asthma As a baby, then I outgrew it. Cystocele, midline 05/13/2009 Delayed emergence from anesthesia 09/27/2014 Depression Excessive or frequent menstruation Heavy periods GERD (gastroesophageal reflux disease) History of Graves' disease HSDD 10/21/2011 Hypothyroidism thyroid ablation/hypothyroid Irregular menstrual cycle Irregular periods menopause age 43 2009 in 2012 FSH 47 Moderate dysplasia of cervix 2001 Parent-child conflict 03/07/2013 Rectocele 05/13/2009 SVT (supraventricular tachycardia) (HCC) Has seen cardiology at OSH, many episodes of fast heart rate are actually sinus tachycardia Syncope 05/14/2013 -Reported that she had one [...] systolic function is normal. EF = 63 5% (2D biplane) - The right ventricle is normal in size. Right ventricular systolic function is normal. - There are no significant valvular abnormalities. - Prior echocardiogram performed on 11/10/11 (stress echo). No significant change. - Tele Tobacco use Weight gain PAST SURGICAL HISTORY Procedure Laterality Date COLONOSCOPY 04/2017 says nl CONIZATION CERVIX W/WO D&C RPR ELTRD EXC 2001 LEEP-Cervix ESOPHAGOGASTRODUODENOSCOPY TRANSORAL DIAGNOSTIC 01/22/2014,2009 EGD LAPAROSCOPY SURG CHOLECYSTECTOMY 05/19/2011 LIG/TRNSXJ FLP TUBE ABDL/VAG APPR UNI/BI 2003 Tubal ligation OOPHORECTOMY PARTIAL/TOTAL UNI/BI 09/2014 laparoscopic left, CW, umbilical/upper abdominal adhesions seen benign PAST SURGICAL HISTORY OF 1998 tubal PAST SURGICAL HISTORY OF 2001 thyroid ablation FAMILY HISTORY Problem Relation Age of Onset Diabetes Mother Type 2 stroke Colon Cancer Father age 64 [place] Diabetes Father Type 2 Hypertension Father Coronary Artery Disease Father Hx of [place] Thyroid Sister hx of parathyroid disease/ hx of fibroids other (healthy) Brother other (healthy) Brother Allergies Daughter other (healthy) Daughter other (healthy) Son other (healthy) Son other (healthy) Son other (healthy) Son Colon Cancer Paternal Aunt x5 Colon Cancer Paternal Uncle x8 Social History Tobacco Use Smoking status: Every Day Packs/day: 1.00 Years: 20.00 Pack years: 20.00 Types: Cigarettes Smokeless tobacco: Never Vaping Use Vaping Use: Never used Substance Use Topics Alcohol use: No Drug use: No Social History Social History Narrative She lives in [place] [address] 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 Add Slynd, either half pill every other day or quarter pill daily (reviewed R/SE/Ins). Keep estrogen dosing the same for now. Need to find a progestin that she tolerates to be able to continue the estrogen. No objections to trial of testosterone in the future, but emphasized need to make 1 change at a time. Discussed weight trends are overall stable from her past baseline. Difficult to assess whether there is Lipedema versus edema, etc. Virtually. Hopefully the antidiuretic effect of the progestin will help Created time slot for follow-up with patient on 02/27 at 1 PM No orders found for this visit on 01/27/22. Paul Dick MD Reviewed S+S to report for further evaluation. Note dictated using voice recognition software. documented in this encounter [facility] 01-27-2022 Instructions Paul Dick MD - 01/27/2022 5:51 PM EDT Images from the original note were not included. Paul Dick MD, [facility] Professor of foaming machine operator & Reproductive Biology [facility] [facility] [place] Dept of Subspecialty Women's Health IMPORTANT NOTE: we cannot refill prescriptions without a yearly appointment. Appointments OFTEN BOOK OUT 6 months. Please ARRANGE appointments in advance so that prescription refill requests are not INTERUPPTED. Primary office numbers (at main campus, for general questions, all paperwork requests, etc): General questions ; scheduling appointments (please avoid faxing items to [place] office) Alternative contact numbers: [place], [employer]: The general scheduling line for all [employer] departments (after hours times available): [phone] I see patients in the following locations: Tuesdays, [facility] Wednesdays & , [facility] Mondays and Fridays: Add-on virtual visits only Getting an appointment when you need it: Calling the office offers the most options for appointments with me which can be virtual (video visit) or in person on a Wednesday, Wednesday, or . If needing an earlier appointment from what is offered, I can add you to my schedule if you send me a [employer] message. Since [employer] messages go to our nursing teams first, it's helpful if you write something like Per our conversation, you mentioned you can add me in for a virtual visit, here are some dates/times in the next few weeks that work for me . It is important to include in your message multiple date/time windows that works for you in the upcoming several weeks, given flexibility in my schedule will vary. Using this phrasing will help prevent delays in getting the message to me. Times I can add patients into the schedule include: Preferred times are: Wednesdays at 8 am or at 12:30 (typically virtual) Other times include: Mondays, (virtual only) Tuesdays 3 or 3:30 PM, (virtual or [place] office) Wednesdays 3:30 (virtual or [facility] A10) before 11:30 or between 2:30-3:30, afternoon preferred (virtual or Main [place] A81) Fridays, (virtual only) For more routine gynecologic concerns (bleeding, vaginal infections, etc), we work with an amazing group of doctors and nurse practitioners who help each other out, not to mention the [facility] Express Care visits that are available online or at walk-in clinics throughout [facility]. This usually works out great, but just in case you don't get a timely response from me, please don't hesitate to be persistent! Occasionally we may have nurses and schedulers helping out temporarily in our office, causing some delays in getting the message to me. Hearing back about test results : I do not believe in the practice of no news is good news. You should always expect to receive results from our office no later than 2 weeks from when all of the tests have resulted. If you are having your testing done at an outside lab, please ensure that they have my correct fax number to send the results to: . Thank you for allowing me to participate in your care! Colon cancer screening is offered routinely starting at age 45, earlier if there is a family family history or symptoms. With a family history of colon cancer, we would like to start screening 10 years prior to the youngest family member (this is typically a first degree relative such as a mother, father, sibling or child). This should be arranged via your primary care doctor who will typically coordinate this; however, you can feel free to contact me to order if unable to obtain via your regular primary care doctor. documented in this encounter [facility] 01-05-2022 Miscellaneous Notes Pt informed, verbalized understanding. Pt reports she has a follow up appt with [employer] on 01/27 to discuss results. Sudha Shepherd Ma Let her know I talked to nurse gynecology about her ultrasound. Given her endometrium is thickening on hormones. They recommend she follow up with them. May need it checked out further. ----- Message from Ofe Diallo APRN.CNP sent at 01/05/2022 8:46 AM EDT ----- Good Morning, Since she is postmenopausal the lining should not be getting thicker. She should have an endometrial biopsy done just to ensure there isn't any type of cancer going on. Ofe Diallo APRN.CNP ----- Message ----- From: Freddy Dee MD Sent: 01/02/2022 8:03 PM EDT To: GIOVANNI Kent: I had done an us on her for groin pain. Her endometrium is under 10 mm but is slightly thicker than before and I think they still have her on estrogen. Anything we need to be concerned about? Thanks John Dee documented in this encounter [facility] 01-02-2022 History of Present illness Narrative Radiology Service Progress Note PATIENT NAME: Maribell Garzon DATE OF SERVICE: January 02, 2022 TIME: 2:33 PM PATIENT IDENTITY VERIFICATION COMPLETED USING TWO (2) IDENTIFIERS: Name and Date of confirmed by patient verbally. FALL SCREENING: Has the patient had 2 falls in the last year or 1 fall with injury or currently using an Ambulatory Assistive Device (Walker, Cane, Wheelchair, Crutches, etc.)? No PATIENT GENDER DATA: Female. status: : No status: NO. PATIENT RELEVANT IMPLANT DATA REVIEWED: Not Applicable RADIOLOGY DEPARTMENT: Ultrasound PERIPHERAL IV DATA: Not applicable SIGNED BY: RT Betzy(R) January 02, 2022 2:33 PM documented in this encounter [facility] 01-01-2022 Miscellaneous Notes Patient notified and verbalizes understanding. She will call tomorrow to set up. We can order one. It does show that better than a ct ,however, usually if they are of any significant size a ct will show. Patient was made aware of the results. Still having cramping and pulling in groin. Passing BM's better. She thinks in is from her uterus and asking for an US. Had cysts previously. Ct is ok. Shows few ? Tiny cysts in the kidneys. Could consider reimaging them with an ultrasound in six months. Otherwise is negative. Check how feeling. documented in this encounter [facility] 01-01-2022 History of Present illness Narrative Radiology Service Progress Note DATE OF SERVICE: January 01, 2022 TIME: 2:51 PM PATIENT IDENTITY VERIFICATION COMPLETED USING TWO (2) STANDARD IDENTIFIERS: Name and Date of confirmed by patient verbally. FALL SCREENING: Has the patient had 2 falls in the last year or 1 fall with injury or currently using an Ambulatory Assistive Device (Walker, Cane, Wheelchair, Crutches, etc.)? No PATIENT GENDER DATA: Female. status: : No status: NO. PATIENT RELEVANT IMPLANT DATA REVIEWED: Yes ALLERGIES: Reviewed and unchanged CONTRAST ALLERGY: NO. EXAM: CT -CONTRAST INDUCED NEPHROPATHY RISK FACTORS: Not applicable CREATININE: Creatinine Date Value Ref Range Status 12/31/2021 0.83 0.58 - 0.96 mg/dL Final 04/24/2021 0.72 0.58 - 0.96 mg/dL Final 05/20/2020 0.77 0.58 - 0.96 mg/dL Final Estimated Glomerular Filtration Rate Date Value Ref Range Status 12/31/2021 83 >=60 mL/min/1.73m Final Comment: Estimated Glomerular Filtration Rate (eGFR) is calculated using the 2020 CKD-EPI creatinine equation. This equation utilizes serum creatinine, sex, and age as parameters. The creatinine assay has traceable calibration to isotope dilution-mass spectrometry. Refer to KDIGO guidelines for clinical interpretation. In patients with unstable renal function, e.g. those with acute kidney injury, the eGFR may not accurately reflect actual GFR. eGFR- Date Value Ref Range Status 04/24/2021 >60 Final P.O.C.T. RESULTS: POC done: Yes, See Lab Tab January 01, 2022 TREATMENT: N/A PERIPHERAL IV DATA: Ambulatory: A peripheral IV was started in the Right antecubital site with a Angio cath: 22 gauge. RADIOLOGY DEPARTMENT: CT; Exam(s) Completed: Abdomen/Pelvis SIGNATURE: RT Camilo(Lisa) PATIENT NAME: Maribell Garzon DATE: January 01, 2022 TIME: 2:51 PM documented in this encounter [facility] 12-31-2021 History of Present illness Narrative Patient presents with: Abdominal Pain HPI: Patient presents today for office visit for Patient complains of: abd pain/back pain. Duration: 1 week Location:[facility] Associated Symptoms: changes in bowels Started about a week ago. Saw chiropractic which made it worse. Saw [facility] yesterday. Started with lower back and hip pain into the groin. Getting an MRI due to her disc disease. Also having fullness and discomfort in the left lower quadrant as well. Had known diverticuli. Bowels have felt different. No bloody or black stools. Bowels are moving daily but bowel movements are firm. Sometimes nauseated. No vomiting. Decreased appetite. No fever or chills. No urinary symptoms. Did a dipstick at home. MEDICATIONS: Current Outpatient Medications Medication Sig VIVELLE-DOT 0.0375 mg/24 hr Apply half patch, and change every other day. MD aware-patient is fast metabolizer, pt needs this sig for tolerability. 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 Take 1 tab by mouth once daily. lisdexamfetamine (VYVANSE) 10 mg capsule Take 1 capsule by mouth once daily for 30 days. blood sugar diagnostic (BLOOD GLUCOSE TEST) test strip Test blood sugar(s) 2 times daily. Insulin: No estradiol 0.01% estriol 0.01% topical cream (CPD) Use 1 click (0.25 g) of cream to thigh once daily. (provider aware of non-vaginal use) Lancets lancets Test blood sugar(s) 2 times daily. Insulin: No CPAP Mask refitting for new mask (FFM option please), heated tubing (YULISSA). Lifetime supplies. G47.33 ANDRESSA albuterol HFA (PROVENTIL HFA) 90 mcg/actuation inhaler Inhale 2 Puffs as instructed every 4 hours as needed. NEEDED FOR SHORTNESS OF BREATH AND WHEEZING lancets (FREESTYLE LANCETS) 28 gauge misc USE FOUR TIMES DAILY DIRECTED blood sugar diagnostic (FREESTYLE TEST) test strip TEST four times a day Blood-Glucose Meter (FREESTYLE LITE METER) monitoring kit 1 Each as needed. No current facility-administered medications for this visit. ALLERGIES: ALLERGIES Allergen Reactions Codeine GI Upset, Vomiting Percocet [Oxycodone* Vomiting Solumedrol [Methylp* Mental Status Change Made her rageful Vicodin [Hydrocodon* Vomiting Metformin Other: See Comments Myalgias. Norethindrone GI Upset myalgias, lip/mouth burn, SOB, nausea, dizziness Pepcid [Famotidine * Other: See Comments Dry eyes, mouth, rash, itching, anxiety Tapazole [[place]* Hives PAST MEDICAL HISTORY Diagnosis Date Abdominal pain, chronic, right upper quadrant Asthma As a baby, then I outgrew it. Cystocele, midline 05/13/2009 Delayed emergence from anesthesia 09/27/2014 Depression Excessive or frequent menstruation Heavy periods GERD (gastroesophageal reflux disease) History of Graves' disease HSDD 10/21/2011 Hypothyroidism thyroid ablation/hypothyroid Irregular menstrual cycle Irregular periods menopause age 43 2009 in 2012 FSH 47 Moderate dysplasia of cervix 2002 Parent-child conflict 03/07/2013 Rectocele 05/13/2009 SVT (supraventricular tachycardia) (HCC) Has seen cardiology at [facility]SH, many episodes of fast heart rate are actually sinus tachycardia Syncope 05/14/2013 -Reported that she had one [...] systolic function is normal. EF = 63 5% (2D biplane) - The right ventricle is normal in size. Right ventricular systolic function is normal. - There are no significant valvular abnormalities. - Prior echocardiogram performed on 11/10/11 (stress echo). No significant change. - Tele Tobacco use Weight gain PAST SURGICAL HISTORY Procedure Laterality Date COLONOSCOPY 04/2017 says nl CONIZATION CERVIX W/WO D&C RPR ELTRD EXC 2001 LEEP-Cervix ESOPHAGOGASTRODUODENOSCOPY TRANSORAL DIAGNOSTIC 01/22/2014,2009 EGD LAPAROSCOPY SURG CHOLECYSTECTOMY 05/19/2011 LIG/TRNSXJ FLP TUBE ABDL/VAG APPR UNI/BI 2003 Tubal ligation OOPHORECTOMY PARTIAL/TOTAL UNI/BI 09/2014 laparoscopic left, CW, umbilical/upper abdominal adhesions seen benign PAST SURGICAL HISTORY OF 1998 tubal PAST SURGICAL HISTORY OF 2001 thyroid ablation FAMILY HISTORY Problem Relation Age of Onset Diabetes Mother Type 2 stroke Colon Cancer Father age 64 [place] Diabetes Father Type 2 Hypertension Father Coronary Artery Disease Father Hx of [place] Thyroid Sister hx of parathyroid disease/ hx of fibroids other (healthy) Brother other (healthy) Brother Allergies Daughter other (healthy) Daughter other (healthy) Son other (healthy) Son other (healthy) Son other (healthy) Son Colon Cancer Paternal Aunt x5 Colon Cancer Paternal Uncle x8 Social History Tobacco Use Smoking status: Every Day Packs/day: 1.00 Years: 20.00 Pack years: 20.00 Types: Cigarettes Smokeless tobacco: Never Vaping Use Vaping Use: Never used Substance Use Topics Alcohol use: No Drug use: No Reviewed current medications, allergies, past medical history, surgical history, family history and social history today. REVIEW OF SYSTEMS All other reviewed and negative other than HPI. HEALTH MAINTENANCE: Reviewed health maintenance issues today and recommended the following in detail. HEPATITIS B(1 of 3 - 3-dose series) Never done HEPATITIS C SCREENING Never done HIV SCREENING Never done SHINGRIX VACCINE(1 of 2) Never done LUNG CANCER SCREENING due on 04/23/2017 COLORECTAL CANCER SCREENING-due for repeat colonoscopy. Had polypectmy. MAMMOGRAM due on 06/16/2021 INFLUENZA(1) due on 2021 VITALS: BP 132/82 Pulse 84 Wt 94.3 kg (208 lb) LMP 03/10/2010 BMI 37.14 kg/m Last 4 Encounter Wt Readings: Date: Wt: 12/23/2021 94.3 kg (208 lb) 04/24/2021 91.2 kg (201 lb) 07/16/2020 93.7 kg (206 lb 9.6 oz) 07/12/2020 87.3 kg (192 lb 8 oz) PHYSICAL EXAMINATION: General appearance: Well appearing, alert, in no acute distress, well-hydrated, well nourished. Skin: Skin color, texture, turgor normal, no suspicious rashes or lesions Head: Normocephalic, no masses, lesions, tenderness or abnormalities Eyes: Anicteric sclera. Pupils are equally round and reactive to light. Extraocular movements are intact. Lungs: Lungs clear to auscultation. No wheezing, rhonchi, rales Heart: RRR without murmur, gallop, or rubs. No ectopy Abdomen:bowel sounds positive. LLQ pain. No rebound. Mild guarding. No masses. Extremities: No deformities, edema, skin discoloration, clubbing or cyanosis. Good capillary refill. Musculoskeletal: No joint swelling, deformity, or tenderness BACK: Normal curvature of spine. No spine tenderness. Tender on moving the back. Straight leg test negative. Deep tendon reflexes 2+/4 at patellas. Normal lower extremity strength. ASSESSMENT/PLAN: 1. LLQ pain - ICD9: 789.04, ICD10: R10.32 (primary diagnosis) - call if worsens. Get ct scan stat to rule out diverticulitis. Groin could be related to her back in part. Red flags for re-assessment reviewed with patient in detail. - see surgeon at some point. - CBC + DIFF - COMP METABOLIC PANEL - URINALYSIS, WITH MICROSCOPIC 2. Screening breast examination - ICD9: V76.10, ICD10: Z12.39 - BELKIS SCREENING 3. Need for hepatitis C screening test - ICD9: V73.89, ICD10: Z11.59 - HEP C AB IA W/CONF SCRN 4. Screening for HIV (human immunodeficiency virus) - ICD9: V73.89, ICD10: Z11.4 - HIV 1 2 COMBO(AG/AB),WITH REFLEX TO DIFFERENTIATION 5. Lumbar radiculopathy - ICD9: 724.4, ICD10: M54.16 - follow with ortho 6. Hyperglycemia - ICD9: 790.29, ICD10: R73.9 - HGB A1C 7. Left lower quadrant abdominal pain - ICD9: 789.04, ICD10: R10.32 - CT ABD/PEL W IVCON Freddy Dee MD documented in this encounter [facility] 12-30-2021 Miscellaneous Notes documented in this encounter [facility] 12-26-2021 Miscellaneous Notes PA sent to [facility]. Awaiting response. Ivy Hadley RN Patient of Dr. Dick Medication question The [facility] pharmacy caller Jose called and stated the Joanne Dot was written as . 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 Not sure if the office would like to do a PA or re write the script. [place] [phone] Thank you Allison Allen documented in this encounter [facility] 2021 Miscellaneous Notes RX pending [facility] 12/18/2021 The following diagnoses were relevant to this visit: (N95.9) Menopausal and perimenopausal disorder (primary encounter diagnosis) She is hoping to increase, doesn't feel estrogen is enough. reinforced need to do it slowly. And she will likely need to tolerate some fluid retention initially. Will increase to the 37.5 vivelle patch, which she will do half patch utilizing her methods that have worked better for her (change every other day, placed on buttock). However, can only fill a short supply of this because it is unopposed estrogen. We talked about the progestin options. I reinforced that I do not feel comfortable with compounded transdermal progesterone. She may be a good candidate for drospirenone only progestin given its antimineralocorticoid effect, which should significantly help her fluid retention. At such a low dose of estrogen, she would likely do well with half or even quarter dose (longer half-life half pill so can be taken every other day). Will make 1 change at a time, added into schedule 01/27 to talk about the addition of the progestin. She will look into the options to make Slynd more affordable in the interim. If she does not do well with the patch dosing, discussed how to fill up the syringe with the biest and slowly use daily dose by increasing 0.1ml and titrating up as tolerated, as per our plans from last visit. I will leave to her discretion which estrogen she tolerates better. No orders found for this visit on 12/18/21. Paul Dick MD documented in this encounter [facility] 12-23-2021 History of Present illness Narrative Division Supervisor offered: Patient declines. Maribell is a 55 year old who presents for an annual gynecologic exam without complaints. Postmenopausal: Yes HRT use: Yes, patch Last Pap: 11/29/2018 normal HPV: 11/26/2018 negative History of abnormal pap: Yes Last mammogram: 2019 normal History of abnormal mammogram: No Sexually active: No OB History T6 L6 SAB0 IAB0 Ectopic1 Multiple0 Live Births6 Comment: menarche 12 FFTP 15 menopause age 43 [employer] History LMP: 03/10/2010, Postmenopausal Age at Menarche: Age at First : Age at Menopause: [employer] History Comments: Sexual Activity: Not Currently; Male Contraception: Tubal Ligation PAST MEDICAL HISTORY Diagnosis Date Abdominal pain, chronic, right upper quadrant Asthma As a baby, then I outgrew it. Cystocele, midline 05/13/2009 Delayed emergence from anesthesia 09/27/2014 Depression Excessive or frequent menstruation Heavy periods GERD (gastroesophageal reflux disease) History of Graves' disease HSDD 10/21/2011 Hypothyroidism thyroid ablation/hypothyroid Irregular menstrual cycle Irregular periods menopause age 43 2009 in 2013 FSH 47 Moderate dysplasia of cervix 2001 Parent-child conflict 03/07/2013 Rectocele 05/13/2009 SVT (supraventricular tachycardia) (HCC) Has seen cardiology at OSH, many episodes of fast heart rate are actually sinus tachycardia Syncope 05/14/2013 -Reported that she had one [...] systolic function is normal. EF = 63 5% (2D biplane) - The right ventricle is normal in size. Right ventricular systolic function is normal. - There are no significant valvular abnormalities. - Prior echocardiogram performed on 11/10/11 (stress echo). No significant change. - Tele Tobacco use Weight gain PAST SURGICAL HISTORY Procedure Laterality Date CERVIX UTERI CONIZA LP ELCTRO EXCI 2001 LEEP-Cervix COLONOSCOPY 04/2017 says nl EGD W/O OR W/BRUSH/WASH 01/22/2014,2009 EGD LAPAROSCOPIC CHOLEYCYSTECTOMY 05/19/2011 LIGATE FALLOPIAN TUBE 2004 Tubal ligation PAST SURGICAL HISTORY OF 1998 tubal PAST SURGICAL HISTORY OF 2001 thyroid ablation REMOVAL OF OVARY(S) 09/2014 laparoscopic left, CW, umbilical/upper abdominal adhesions seen benign FAMILY HISTORY Problem Relation Age of Onset Diabetes Mother Type 2 stroke Colon Cancer Father age 64 [place] Diabetes Father Type 2 Hypertension Father Coronary Artery Disease Father Hx of [place] Thyroid Sister hx of parathyroid disease/ hx of fibroids other (healthy) Brother other (healthy) Brother Allergies Daughter other (healthy) Daughter other (healthy) Son other (healthy) Son other (healthy) Son other (healthy) Son Colon Cancer Paternal Aunt x5 Colon Cancer Paternal Uncle x8 SOCIAL HISTORY Social History Tobacco Use Smoking status: Every Day Packs/day: 1.00 Years: 20.00 Pack years: 20.00 Types: Cigarettes Smokeless tobacco: Never Vaping Use Vaping Use: Never used Substance Use Topics Alcohol use: No Drug use: No REVIEW OF SYSTEMS Abdomen: No abdominal pain, nausea, vomiting, diarrhea, or constipation. No bloating, early satiety, indigestion, or increased flatulence. Bladder: No dysuria, gross hematuria, urinary frequency, urinary urgency, or incontinence Breast: No breast lumps, nipple d/c, overlying skin changes, redness or skin retraction Allergies and current medication updated:Yes EXAM: LMP 03/10/2010 GENERAL: pleasant, female in no apparent distress HEENT: Normocephalic, atraumatic, mucus membranes moist, and no lesions NECK: Supple, full range of motion, no adenopathy, and thyroid normal DERMATOLOGY: Normal, without lesions, non-icteric, and non-hirsute BREAST: soft, non-tender, symmetric, no dominant mass, normal nipple-areolar complex, no lymphadenopathy, and no nipple discharge CHEST: Normal inspiratory effort ABDOMEN: soft, non-tender, and no masses PELVIC: external genitalia normal, normal Bartholin's glands, urethra, Dragoon's glands, no vulvar lesions, no cervical lesions, physiologic discharge present, normal appearing perineal body and perianal region BIMANUAL: uterus normal size, shape and consistency, no adnexal masses, and non-tender RECTOVAGINAL: deferred. NEURO: alert and oriented x3,exam grossly non-focal EXTREMITIES: normal ASSESSMENT/PLAN: 1) Health maintenance: Pap/HPV up to date. Mammogram ordered Nutrition, exercise and routine health maintenance exams reviewed. Calcium/Vitamin D supplementation information provided. Colon cancer screening: up to date with screening 2) Follow up one year or sooner as needed Ofe Diallo APRN.CNP documented in this encounter [facility] 12-18-2021 History of Present illness Narrative I spent a total of 40+ minutes on the date of the service which included preparing to see the patient, [id number] patient care, completing clinical documentation, obtaining and/or reviewing separately obtained history, counseling and educating the patient/family/caregiver, and ordering medications, tests, or procedures. Real-time telemedicine visit using audiovisual technology with patient's verbal consent. Name and verified. Virtual visit-scheduled December 18, 2021 Start review of records, labs, interim events 4:12 PM Maribell aGrzon is a 55 year old year old female. HEPATITIS B(1 of 3 - 3-dose series) Never done HEPATITIS C SCREENING Never done HIV SCREENING Never done SHINGRIX VACCINE(1 of 2) Never done LUNG CANCER SCREENING due on 04/23/2017 COLORECTAL CANCER SCREENING due on 02/11/2020 COVID-19 VACCINE(2 - Moderna series) due on 01/24/2021 MAMMOGRAM due on 06/16/2021 I have been seeing her since 11/[address] Angelo for hormonal concerns. Has had hormonal sensitivities throughout her life, difficulty tolerating any hormonal regimens. Premenstrual profound symptoms: heart racing, dizzy, muscle tension within 12 hours prior her cycle starting. Within 2 min of bleeding starting the sxs would resolve, this would occur consistently. Hx of ovarian cysts, was scheduled for surgery to have removed, she insisted on repeat ultrasound because felt that the cyst was resolved, she was right. Didn't need the surgery. However she did have left oophorectomy for benign reasons. LMP in 2009, age [age]. Lab confirmed menopause-soon after gynecologic surgery. Since then symptoms are debilitating, disabled and cannot leave her house, difficult for her to drive. When in menopause many of the symptoms that she would experience premenstrually got much worse. Including arthralgias, told fibromyalgia, she did not believe diagnosis. Anxiety was bad, tried multiple meds. Dry eyes, severe. Burning mouth (goes away completely with the ET). Brain fog. Has been seeing medical providers for multiple concerns. Is heterozygous for MTHFR mutation, never had a VTE with 6 pregnancies. Did see hematology who said can use estrogen, but prefer transdermals. She has also been dealing with hyperthyroidism. She is homebound, does get in the pool, and is outside in the garden, but not walking in the yard too much for any consistent amount of time. Got her COVID shot around 02/13 and multiple medical issues latter 2020 which she also feels impacted her hormones. 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 Discussed importance of slow adjustment of medications. We have been trying a variety of regimens as noted below, which she has not tolerated. We have been trying to get her to tolerate the E2 and P individually, though understands cannot use unopposed estrogen for prolonged periods for endometrial safety. Since working with very small doses, I told her no more than 3 months without addition of adequate progestin. Her prior doctors were offering compounded topical progesterone with ultrasound monitoring of the endometrium-discussed ultrasound cannot rule out cancer, and transdermal compounded formulations may not have adequate endometrial protection. Common themes over time include immediate symptom relief with the estrogen (mood, hair, moisture of mucous membranes) experienced with the estrogen, but the levels are not sustained with the typical frequency of the formulations. When she gets too much estrogen gets fluid retention. She doesn't tolerate being without it, but can't tolerate typically within 1-2 weeks of it, or sometimes even earlier. ........ Previously tried/offered: Depoprovera couldn't walk. OCPs multiple sxs of panic/heart racing rushing noises in ear (bathroom fan would sound like an airplane). Testosterone, progesterone only, estrogen only-fluid retention, causing reflux, asthma-like reaction-typically occurs after a few months of use Antianxiety medications-tried multiple MHT (Darlynelle) estrogen patch- felt too stimulated, even on the 25mcg. Had her changing every 2-3 days. Dose was increased to 50 which helped better with sxs, but legs would swell. Tried 4-6 wks for each. feels heart racing when the estrogen seems to be dropping. Within 2 hours of coming off the patch her HR would come down. Combipatch- HR was high 130s sinus tach noted with PCP, so was told her to come off due to possible allergy. Saw cards and EP- told heart is not the problem, but a symptom of what is going on. Came off after 3 days, also felt drunk and dizzy with it. After she stopped taking it states took 1 mo for the drunken dizzy sensation to go away. estrogel- did ok initially, felt Better with twice a day, but at the higher dose legs would swell. 3 wks between dose adjustments, she did not like the fact that her HR would go up when waiting 24 hours between doses (felt that she was metabolizing the estrogen quickly). Divigel start with quarter or less of the packet daily, and slowly move up to the full dose as tolerated-cost prohibitive Bi est- the best she tried, she felt like it was too much. The pharmacist was managing. 3 mg E2/0.5 of E3, she didn't feel comfortable with the way the pharmacist wanted to change the dosing. She felt that it was too E2 heavy. 08/15 rxed biest 1-Click 0.25 g (which we typically use for vaginal local low-dose therapy) of the cream and warehouse picker a 1 mL syringe, start with use of 0.1 mL at a time, which she can use twice daily or 3 times daily if even needed. SEE BELOW Estratest and NET 0.[address] Trevino- kicked up GERD which she felt pushed into an asthma attack Prometrium 100 made her feel drunk and dizzy. Tried vaginally too, but bladder spasm. compounded transdermally after 20 mg starts getting similar symptoms. Estradiol 3 days into crying for no reason (although dr Trevino's notes says this was with FemHRT) No progestin that she has been able to tolerate-however she does sleep better with the Prometrium. She was nervous about the idea of Mirena because her daughter got hives, and it took a week for someone to remove it, nervous about anything that is not patient controlled. INTERIM UPDATE 12/18/2021: She used biest for 2 days, because had difficulty with the syringe so she tried the full dose of the 1 click instead. The heart started racing and fluctuation symptoms. She stopped after 2 days, she never called. Without hormones most of this time since her 08/15 visit and felt miserable. She started back on the estrogen patch on 11/06/21, so far doing well in terms of mood. Starting to feel some fluid retention, but feels dose is not enough. What works best for her thus far is: 1/2 patch 0.25, changed every other day. To the buttock instead of the abdomen. Crossover 1-2 hours by leaving the older patch on. Thinks she felt best on 37.5 patch in the past . 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 I spoke with the genetics team, relevant info in 06/16 note. US 07/14: left oophorectomy, 4 mm endometrium, nl Cotesting 12/12 normal The following histories was reviewed and updated today: OB History T6 L6 SAB0 IAB0 Ectopic1 Multiple0 Live Births6 Comment: menarche 12 FFTP 15 menopause age 43 ACTIVE PROBLEM LIST Postablative Hypothyroidism hx of low vitamin D Panic Disorder With Agoraphobia Chronic Fatigue Fibromyalgia Syndrome Blood Pressure Elevated Without History of Htn Impaired Glucose Tolerance Svt (Supraventricular Tachycardia) ([facility]) Ptsd (Post-Traumatic Stress Disorder) Attention Deficit Hyperactivity Disorder (Adhd), Combined Type Recurrent Major Depressive Disorder, in Partial Remission ([facility]) menopause age 43 Tobacco Use Gerd Without Esophagitis Simple Chronic Bronchitis (Hcc) Irritable Bowel Syndrome With Diarrhea Systemic Lupus Erythematosus ([facility]) Burning Sensation of Mouth Burning Sensation of Skin Sleep Difficulties Mitral Valve Prolapse Screening for Malignant Neoplasm of The Cervix Visit for Pelvic Exam Encounter for Screening Mammogram for Malignant Neoplasm of Breast Estrogen Deficiency Adrenal Adenoma, Left Andressa (Obstructive Sleep Apnea) Other Chest Pain Nocturnal Oxygen Desaturation 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) Cyp2c9 Intermediate Metabolizer (Hcc) [id number] Rapid Metabolizer (Hcc) [id number] Intermediate Metabolizer (Hcc) Heterozygous Factor V Leiden Mutation ([facility]) Hormone Deficiency PAST MEDICAL HISTORY Diagnosis Date Abdominal pain, chronic, right upper quadrant Asthma As a baby, then I outgrew it. Cystocele, midline 05/13/2009 Delayed emergence from anesthesia 09/27/2014 Depression Excessive or frequent menstruation Heavy periods GERD (gastroesophageal reflux disease) History of Graves' disease HSDD 10/21/2011 Hypothyroidism thyroid ablation/hypothyroid Irregular menstrual cycle Irregular periods menopause age 43 2009 in 2012 FSH 47 Moderate dysplasia of cervix 2002 Parent-child conflict 03/07/2013 Rectocele 05/13/2009 SVT (supraventricular tachycardia) (HCC) Has seen cardiology at OSH, many episodes of fast heart rate are actually sinus tachycardia Syncope 05/14/2013 -Reported that she had one [...] systolic function is normal. EF = 63 5% (2D biplane) - The right ventricle is normal in size. Right ventricular systolic function is normal. - There are no significant valvular abnormalities. - Prior echocardiogram performed on 11/10/11 (stress echo). No significant change. - Tele Tobacco use Weight gain PAST SURGICAL HISTORY Procedure Laterality Date CERVIX UTERI CONIZA LP ELCTRO EXCI 2001 LEEP-Cervix COLONOSCOPY 04/2017 says nl EGD W/O OR W/BRUSH/WASH 01/22/2014,2009 EGD LAPAROSCOPIC CHOLEYCYSTECTOMY 05/19/2011 LIGATE FALLOPIAN TUBE 2003 Tubal ligation PAST SURGICAL HISTORY OF 1998 tubal PAST SURGICAL HISTORY OF 2001 thyroid ablation REMOVAL OF OVARY(S) 09/2014 laparoscopic left, CW, umbilical/upper abdominal adhesions seen benign FAMILY HISTORY Problem Relation Age of Onset Diabetes Mother Type 2 stroke Colon Cancer Father age 64 [place] Diabetes Father Type 2 Hypertension Father Coronary Artery Disease Father Hx of [place] Thyroid Sister hx of parathyroid disease/ hx of fibroids other (healthy) Brother other (healthy) Brother Allergies Daughter other (healthy) Daughter other (healthy) Son other (healthy) Son other (healthy) Son other (healthy) Son Colon Cancer Paternal Aunt x5 Colon Cancer Paternal Uncle x8 Social History Tobacco Use Smoking status: Every Day Packs/day: 1.00 Years: 20.00 Pack years: 20.00 Types: Cigarettes Smokeless tobacco: Never Vaping Use Vaping Use: Never used Substance Use Topics Alcohol use: No Drug use: No Social History Social History Narrative She lives in [place] [id number] 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 reinforced need to do it slowly. And she will likely need to tolerate some fluid retention initially. Will increase to the 37.5 vivelle patch, which she will do half patch utilizing her methods that have worked better for her (change every other day, placed on buttock). However, can only fill a short supply of this because it is unopposed estrogen. We talked about the progestin options. I reinforced that I do not feel comfortable with compounded transdermal progesterone. She may be a good candidate for drospirenone only progestin given its antimineralocorticoid effect, which should significantly help her fluid retention. At such a low dose of estrogen, she would likely do well with half or even quarter dose (longer half-life half pill so can be taken every other day). Will make 1 change at a time, added into schedule 01/27 to talk about the addition of the progestin. She will look into the options to make Slynd more affordable in the interim. If she does not do well with the patch dosing, discussed how to fill up the syringe with the biest and slowly use daily dose by increasing 0.1ml and titrating up as tolerated, as per our plans from last visit. I will leave to her discretion which estrogen she tolerates better. No orders found for this visit on 12/18/21. Paul Dick MD Reviewed S+S to report for further evaluation. Note dictated using voice recognition software. documented in this encounter [facility] 12-18-2021 Instructions Paul Dick MD - 12/18/2021 5:13 PM EDT Images from the original note were not included. Paul Dick MD, [facility] Professor of foaming machine operator & Reproductive Biology [facility] [place] [facility] Subspecialty [facility] IMPORTANT NOTE: we cannot refill prescriptions without a yearly appointment. Appointments OFTEN BOOK OUT 6 months. Please ARRANGE appointments in advance so that prescription refill requests are not INTERUPPTED. Primary office numbers (at main [place], for general questions, all paperwork requests, etc): General questions ; scheduling appointments (please avoid faxing items to [place] office) Alternative contact numbers: [place], [employer]: [phone] The general scheduling line for all [employer] departments (after hours times available): [phone] I see patients in the following locations: Tuesdays, [facility] Wednesdays & , Main [place] Mondays and Fridays: Add-on virtual visits only Getting an appointment when you need it: Calling the office offers the most options for appointments with me which can be virtual (video visit) or in person on a Wednesday, Wednesday, or . If needing an earlier appointment from what is offered, I can add you to my schedule if you send me a [employer] message. Since [employer] messages go to our nursing teams first, it's helpful if you write something like Per our conversation, you mentioned you can add me in for a virtual visit, here are some dates/times in the next few weeks that work for me . It is important to include in your message multiple date/time windows that works for you in the upcoming several weeks, given flexibility in my schedule will vary. Using this phrasing will help prevent delays in getting the message to me. Times I can add patients into the schedule include: Preferred times are: Wednesdays at 8 am or at 12:30 (typically virtual) Other times include: Mondays, (virtual only) Tuesdays 3 or 3:30 PM, (virtual or [place] office) Wednesdays 3:30 (virtual or [facility] [place] [facility]) before 11:30 or between 2:30-3:30, afternoon preferred (virtual or [facility] [place] [facility]) Fridays, (virtual only) For more routine gynecologic concerns (bleeding, vaginal infections, etc), we work with an amazing group of doctors and nurse practitioners who help each other out, not to mention the [facility] visits that are available online or at walk-in clinics throughout [facility]. This usually works out great, but just in case you don't get a timely response from me, please don't hesitate to be persistent! Occasionally we may have nurses and schedulers helping out temporarily in our office, causing some delays in getting the message to me. Hearing back about test results : I do not believe in the practice of no news is good news. You should always expect to receive results from our office no later than 2 weeks from when all of the tests have resulted. If you are having your testing done at an outside lab, please ensure that they have my correct fax number to send the results to: . Thank you for allowing me to participate in your care! Colon cancer screening is offered routinely starting at age 45, earlier if there is a family family history or symptoms. With a family history of colon cancer, we would like to start screening 10 years prior to the youngest family member (this is typically a first degree relative such as a mother, father, sibling or child). This should be arranged via your primary care doctor who will typically coordinate this; however, you can feel free to contact me to order if unable to obtain via your regular primary care doctor. documented in this encounter [facility] 12-15-2021 Miscellaneous Notes Patient phones requesting refills as follows: Requested Prescriptions Pending Prescriptions Disp Refills SYNTHROID 150 mcg tablet 30 tablet 11 Sig: Take 1 tablet by mouth once daily. Take 1 tab by mouth once daily. ANCELMO 11/17/21 NOV no upcoming appt Please review and advise. Shakir Andino LPN documented in this encounter [facility] 11-17-2021 History of Present illness Narrative Patient presents with: Follow Up HPI:This Team [...] in the office setting and agrees. She did not tolerated pristiq. She did take it for six weeks. Was having severe fatigue and sleeping all the time while on it. Her daughters had similar issues with meds. Had trouble going on meds. Her children did well on vyvanse. Helped with their depression as well as helped with ADD symptoms. She does have some ADHD symptoms. She has issues focusing. Feels very fatigued. She wants to go back to work but feels she cannot stay focused or on tasks. bp was up last time in [facility]. Her bp has been good most times as home. Bp was 148/84 this am but Discussed risks and benefits of meds. MEDICATIONS: Current Outpatient Medications Medication Sig blood sugar diagnostic (BLOOD GLUCOSE TEST) test strip Test blood sugar(s) 2 times daily. Insulin: No desvenlafaxine ER (PRISTIQ) 25 mg 24 hr tablet Take 1 tablet by mouth once daily. estradiol 0.01% estriol 0.01% topical cream (CPD) Use 1 click (0.25 g) of cream to thigh once daily. (provider aware of non-vaginal use) ergocalciferol 50,000 unit capsule (VITAMIN D2, DRISDOL) Take 1 capsule by mouth one time a week. SYNTHROID 150 mcg tablet Take 1 tablet by mouth once daily. Take 1 tab by mouth once daily. Lancets lancets Test blood sugar(s) 2 times daily. Insulin: No CPAP Mask refitting for new mask (FFM option please), heated tubing (YULISSA). Lifetime supplies. G47.33 ANDRESSA albuterol HFA (PROVENTIL HFA) 90 mcg/actuation inhaler Inhale 2 Puffs as instructed every 4 hours as needed. NEEDED FOR SHORTNESS OF BREATH AND WHEEZING lancets (FREESTYLE LANCETS) 28 gauge misc USE FOUR TIMES DAILY DIRECTED blood sugar diagnostic (FREESTYLE TEST) test strip TEST four times a day Blood-Glucose Meter (FREESTYLE LITE METER) monitoring kit 1 Each as needed. No current facility-administered medications for this visit. ALLERGIES: ALLERGIES Allergen Reactions Codeine GI Upset, Vomiting Percocet [Oxycodone* Vomiting Solumedrol [Methylp* Mental Status Change Made her rageful Vicodin [Hydrocodon* Vomiting Combipatch [Estradi* Intolerance feels wired, muscles hurt, lips/mouth burn, feels like asthma flaring, nausea, dizziness. Estradiol GI Upset myalgias, lip/mouth burn, SOB, nausea, dizziness Metformin Other: See Comments Myalgias. Norethindrone GI Upset myalgias, lip/mouth burn, SOB, nausea, dizziness Pepcid [Famotidine * Other: See Comments Dry eyes, mouth, rash, itching, anxiety Tapazole [Methimazo* Hives PAST MEDICAL HISTORY Diagnosis Date Abdominal pain, chronic, right upper quadrant Asthma As a baby, then I outgrew it. Cystocele, midline 05/13/2009 Delayed emergence from anesthesia 09/27/2014 Depression Excessive or frequent menstruation Heavy periods GERD (gastroesophageal reflux disease) History of Graves' disease HSDD 10/21/2011 Hypothyroidism thyroid ablation/hypothyroid Irregular menstrual cycle Irregular periods menopause age 43 2009 in 2012 FSH 47 Moderate dysplasia of cervix 2002 Parent-child conflict 03/07/2013 Rectocele 05/13/2009 SVT (supraventricular tachycardia) (HCC) Has seen cardiology at [facility], many episodes of fast heart rate are actually sinus tachycardia Syncope 05/14/2013 -Reported that she had one [...] systolic function is normal. EF = 63 5% (2D biplane) - The right ventricle is normal in size. Right ventricular systolic function is normal. - There are no significant valvular abnormalities. - Prior echocardiogram performed on 11/10/11 (stress echo). No significant change. - Tele Tobacco use Weight gain PAST SURGICAL HISTORY Procedure Laterality Date CERVIX UTERI CONIZA LP ELCTRO EXCI 2001 LEEP-Cervix COLONOSCOPY 04/2017 says nl EGD W/O OR W/BRUSH/WASH 01/22/2014,2009 EGD LAPAROSCOPIC CHOLEYCYSTECTOMY 05/19/2011 LIGATE FALLOPIAN TUBE 2003 Tubal ligation PAST SURGICAL HISTORY OF 1998 tubal PAST SURGICAL HISTORY OF 2001 thyroid ablation REMOVAL OF OVARY(S) 09/2014 laparoscopic left, CW, umbilical/upper abdominal adhesions seen benign FAMILY HISTORY Problem Relation Age of Onset Diabetes Mother Type 2 stroke Colon Cancer Father age 64 [place] Diabetes Father Type 2 Hypertension Father Coronary Artery Disease Father Hx of [place] Thyroid Sister hx of parathyroid disease/ hx of fibroids other (healthy) Brother other (healthy) Brother Allergies Daughter other (healthy) Daughter other (healthy) Son other (healthy) Son other (healthy) Son other (healthy) Son Colon Cancer Paternal Aunt x5 Colon Cancer Paternal Uncle x8 Social History Tobacco Use Smoking status: Current Every Day Smoker Packs/day: 1.00 Years: 20.00 Pack years: 20.00 Types: Cigarettes Smokeless tobacco: Never Used Vaping Use Vaping Use: Never used Substance Use Topics Alcohol use: No Drug use: No Reviewed current medications, allergies, past medical history, surgical history, family history and social history today. REVIEW OF SYSTEMS All other reviewed and negative other than HPI. VITALS: LMP 03/10/2010 Last 4 Encounter Wt Readings: Date: Wt: 04/24/2021 91.2 kg (201 lb) 07/16/2020 93.7 kg (206 lb 9.6 oz) 07/12/2020 87.3 kg (192 lb 8 oz) 05/14/2020 95.8 kg (211 lb 3.2 oz) PHYSICAL EXAMINATION: Patient is alert and oriented during visit. Answers appropriately. ASSESSMENT/PLAN: 1. Attention deficit hyperactivity disorder (ADHD), combined type - ICD9: 314.01, ICD10: F90.2 (primary diagnosis) - Discussed risks and benefits of new medication with the patient. Advised them to call if any side effects or questions. - will send note that she cannot work until doing better. - LISDEXAMFETAMINE 10 MG CAPSULE 2. Anxiety with depression - ICD9: 300.4, ICD10: F41.8 - as above. She is off the pristiq 3. 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 Freddy Dee RTO in one month and prn. documented in this encounter [facility] 10-30-2021 Miscellaneous Notes Called [facility] which advised rx was not received electronically. Did call in rx which pharmacist on phone. Patient aware was not received but did manually call in so will be ready for warehouse picker. Shante Stafford Ma Pt called in reporting her blood glucose testing strips never went through to [facility]. Asked Auth Dept about it because it said PA was canceled. They said it was a generic test strip and did not need a PA. She was going to call pharmacy. documented in this encounter [facility] 10-04-2021 Miscellaneous Notes Patient has been identified by name and date of : Yes Patient phones for refill(s): Pending Prescriptions Disp Refills BLOOD GLUCOSE TEST STRIPS 50 Strip 11 Sig: Test blood sugar(s) 2 times daily. Insulin: No YULISSA: No Date of last office visit in primary care: 08/29/21 Last 2 Encounter Wt Readings: Date: Wt: 04/24/2021 91.2 kg (201 lb) 07/16/2020 93.7 kg (206 lb 9.6 oz) Previous labs/tests for medication: Diabetes: Hemoglobin A1C (%) Date Value 05/09/2021 6.0 12/11/2020 6.0 Please advise. Thank you. Yue Vital LPN documented in this encounter [facility] 09-03-2021 Miscellaneous Notes TAMIA approved from 08/04/21-09/03/22 Faxed approval to pharmacy Shante Stafford Ma Prior Authorization has been completed online at [employer] for Pristiq, will await response. [place]- [id number] Please keep encounter open until final decision has been received and documented from insurance company. China Taveras LPN documented in this encounter [facility] 08-29-2021 History of Present illness Narrative Patient presents with: Acute Visit HPI:This Team Access Model visit is a virtual encounter. It required patient-provider interaction for the medical decision making as documented below. Patient was offered a virtual/telemedicine appointment in lieu of an office visit due to recommendations to reduce patient exposure to COVID-19. Patient is aware of limitations of performing the visit without a face to face visit in the office setting and agrees. Having issues with depression. She admits she needs to be on something. Still working with her hormones currently. Is concerned about her genetic limitations on her metabolism of her meds. effexor is the one that will be ok but have tried it in the past. Suggested pristiq could be an option. Has a lot of stress. No suicidal ideation. Is fatigued. Can't get out of bed at times. MEDICATIONS: Current Outpatient Medications Medication Sig estradiol 0.01% estriol 0.01% topical cream (CPD) Use 1 click (0.25 g) of cream to thigh once daily. (provider aware of non-vaginal use) ergocalciferol 50,000 unit capsule (VITAMIN D2, DRISDOL) Take 1 capsule by mouth one time a week. SYNTHROID 150 mcg tablet Take 1 tablet by mouth once daily. Take 1 tab by mouth once daily. Lancets lancets Test blood sugar(s) 2 times daily. Insulin: No CPAP Mask refitting for new mask (FFM option please), heated tubing (YULISSA). Lifetime supplies. G47.33 ANDRESSA blood sugar diagnostic (BLOOD GLUCOSE TEST) test strip Test blood sugar(s) 2 times daily. Insulin: No albuterol HFA (PROVENTIL HFA) 90 mcg/actuation inhaler Inhale 2 Puffs as instructed every 4 hours as needed. NEEDED FOR SHORTNESS OF BREATH AND WHEEZING lancets (FREESTYLE LANCETS) 28 gauge misc USE FOUR TIMES DAILY DIRECTED blood sugar diagnostic (FREESTYLE TEST) test strip TEST four times a day Blood-Glucose Meter (FREESTYLE LITE METER) monitoring kit 1 Each as needed. No current facility-administered medications for this visit. ALLERGIES: ALLERGIES Allergen Reactions Codeine GI Upset, Vomiting Percocet [Oxycodone* Vomiting Solumedrol [Methylp* Mental Status Change Made her rageful Vicodin [Hydrocodon* Vomiting Combipatch [Estradi* Intolerance feels wired, muscles hurt, lips/mouth burn, feels like asthma flaring, nausea, dizziness. Estradiol GI Upset myalgias, lip/mouth burn, SOB, nausea, dizziness Metformin Other: See Comments Myalgias. Norethindrone GI Upset myalgias, lip/mouth burn, SOB, nausea, dizziness Pepcid [Famotidine * Other: See Comments Dry eyes, mouth, rash, itching, anxiety Tapazole [Methimazo* Hives PAST MEDICAL HISTORY Diagnosis Date Abdominal pain, chronic, right upper quadrant Asthma As a baby, then I outgrew it. Cystocele, midline 05/13/2009 Delayed emergence from anesthesia 09/27/2014 Depression Excessive or frequent menstruation Heavy periods GERD (gastroesophageal reflux disease) History of Graves' disease HSDD 10/21/2011 Hypothyroidism thyroid ablation/hypothyroid Irregular menstrual cycle Irregular periods menopause age 43 2009 in 2012 FSH 47 Moderate dysplasia of cervix 2002 Parent-child conflict 03/07/2013 Rectocele 05/13/2009 SVT (supraventricular tachycardia) (HCC) Has seen cardiology at [facility]SH, many episodes of fast heart rate are actually sinus tachycardia Syncope 05/14/2013 -Reported that she had one [...] systolic function is normal. EF = 63 5% (2D biplane) - The right ventricle is normal in size. Right ventricular systolic function is normal. - There are no significant valvular abnormalities. - Prior echocardiogram performed on 11/10/11 (stress echo). No significant change. - Tele Tobacco use Weight gain PAST SURGICAL HISTORY Procedure Laterality Date CERVIX UTERI CONIZA LP ELCTRO EXCI 2001 LEEP-Cervix COLONOSCOPY 04/2017 says nl EGD W/O OR W/BRUSH/WASH 01/22/2014,2009 EGD LAPAROSCOPIC CHOLEYCYSTECTOMY 05/19/2011 LIGATE FALLOPIAN TUBE 2004 Tubal ligation PAST SURGICAL HISTORY OF 1998 tubal PAST SURGICAL HISTORY OF 2001 thyroid ablation REMOVAL OF OVARY(S) 09/2014 laparoscopic left, CW, umbilical/upper abdominal adhesions seen benign FAMILY HISTORY Problem Relation Age of Onset Diabetes Mother Type 2 stroke Colon Cancer Father age 64 [place] Diabetes Father Type 2 Hypertension Father Coronary Artery Disease Father Hx of [place] Thyroid Sister hx of parathyroid disease/ hx of fibroids other (healthy) Brother other (healthy) Brother Allergies Daughter other (healthy) Daughter other (healthy) Son other (healthy) Son other (healthy) Son other (healthy) Son Colon Cancer Paternal Aunt x5 Colon Cancer Paternal Uncle x8 Social History Tobacco Use Smoking status: Current Every Day Smoker Packs/day: 1.00 Years: 20.00 Pack years: 20.00 Types: Cigarettes Smokeless tobacco: Never Used Vaping Use Vaping Use: Never used Substance Use Topics Alcohol use: No Drug use: No Reviewed current medications, allergies, past medical history, surgical history, family history and social history today. REVIEW OF SYSTEMS All other reviewed and negative other than HPI. VITALS: LMP 03/10/2010 Last 4 Encounter Wt Readings: Date: Wt: 04/24/2021 91.2 kg (201 lb) 07/16/2020 93.7 kg (206 lb 9.6 oz) 07/12/2020 87.3 kg (192 lb 8 oz) 05/14/2020 95.8 kg (211 lb 3.2 oz) PHYSICAL EXAMINATION: Patient is alert and oriented during visit. Answers appropriately. ASSESSMENT/PLAN: 1. Anxiety with depression - ICD9: 300.4, ICD10: F41.8 - Discussed risks and benefits of new medication with the patient. Advised them to call if any side effects or questions. - DESVENLAFAXINE SUCCINATE ER 25 MG TABLET,EXTENDED RELEASE 24 HR Freddy Dee RTO in one month documented in this encounter [facility] 08-06-2021 Miscellaneous Notes See Yoopayhart message. Renee Prado Ma documented in this encounter [facility] 07-31-2021 History of Present illness Narrative I spent a total of 30+ minutes on the date of the service which included preparing to see the patient, [id number] patient care, completing clinical documentation, obtaining and/or reviewing separately obtained history, counseling and educating the patient/family/caregiver, ordering medications, tests, or procedures, communicating with other HCPs (not separately reported) and independently interpreting results (not separately reported). Real-time telemedicine visit using audiovisual technology with patient's verbal consent. Name and verified. Virtual visit-scheduled July 31, 2021 Start review of records, labs, interim events 11:55 AM Maribell Garzon is a 55 year old year old female. I have been seeing her since 11/[address] Angelo for hormonal concerns. Has had hormonal sensitivities throughout her life, but difficulty tolerating any hormonal regimens. Premenstrual profound symptoms: heart racing, dizzy, muscle tension within 12 hours prior her cycle starting. Within 2 min of bleeding starting the sxs would resolve, this would occur consistently. Hx of ovarian cysts, was scheduled for surgery to have removed, she insisted on repeat ultrasound because felt that the cyst was resolved, she was right. Didn't need the surgery. However she did have left oophorectomy for benign reasons. LMP in 2009, age 42-43. Lab confirmed menopause soon after gynecologic surgery. Since then symptoms are debilitating, disabled and cannot leave her house, difficult for her to drive. When in menopause many of the symptoms that she would experience premenstrually got much worse. Including arthralgias, told fibromyalgia, she did not believe diagnosis. Anxiety was bad, tried multiple meds. Dry eyes, severe. Burning mouth (goes away completely with the ET). Brain fog. Has been seeing medical providers for multiple concerns. Is heterozygous for MTHFR mutation, never had a VTE with 6 pregnancies. Did see hematology who said can use estrogen, but prefer transdermals. At that visit my suspicion was that anytime she started to feel better, would start getting the heart rate variability prior to the next dose, so she would inc dose quickly within a few weeks, causing some fluid retention in the legs. Discussed importance of slow adjustment of medications. Started half of Vivelle 25 MCG patch to be replaced every 3 days. She was open to oral formulations if needed. Started with estrogen adjustment first, with short-term follow-up to add in progestin since she has been progestin intolerant. Schedule for close follow-up 12/26/20 with no refills to ensure starting progestin. ......... VV 12/14: Reached out for add in visit. Was using the Vivelle patch every 3. In 4-6 hrs helps, light turns on . Within 24 hours starts to feel waning effects, and by 3 day is feeling miserable again. No fluid retention, in fact that is better that is has been. This is most success she has had tolerating hormones in a long time. However when during and off estrogen. Gets multiple symptoms again, got her thyroid checked and she is hyperthyroid in the interim. Also lost 25 lbs., so it is very confusing for her was the distribution driver of her symptoms. Reinforced our original plans, focusing on an estrogen she can tolerate first, as finding a progestin that she tolerates will be equally challenging. Also, if she is requiring ultralow doses of estrogen for benefit, this may open up options beyond Mirena, in using lower dose progestin IUDs (though there is less endometrial safety data with doses less than Mirena, also would need counseling and follow-up of that for the endometrial effects). Can also consider other progestin such as Micronor, DRSP, etc at half doses or even starting at a quarter if needed. reassured that if she needs an IUD removed due to intolerance, I would be able to add her in quickly for removal which is a source of worry for her. Encouraged her to increase as tolerated the Vivelle to the 25 mcg twice weekly changed every 3 days. VV 12/26/2020: She did increase to Vivelle 25, full patch twice weekly changed every 3 days. Still feeling up and down with the symptoms, the first day feels terrible (feels like there is a reyna of estrogen coming out of the patch at first), but starting to get VMS during the day on day 2-3 (this is new too). Today feels pretty good. She is not sure what is happening, but just feels it's too quick on and off with the patch. Still homebound, she does get in the pool, and is outside in the garden, but not walking in the yard too much for any consistent amount of time. She is happy with her hair growth, looks healthier and others are noticing. Discussed change to other formulations such as Estrogel, but is willing to continue to work on the plans we had previously discussed. She will continue the 25 mcg patch, but change every 2 days instead of every 3. Added into schedule for close follow-up on 01/27 at 9:30 AM. Once she is tolerating the estradiol, will start working on progestin dosing. If it is taking a long time to find a tolerable progestin, may need to stop the estradiol in the interim while we experiment with different options. Currently still within 6 weeks of very low-dose estrogen only options. At this current regimen, I would not recommend going beyond 3 months without a progestin. Encouraged her to start taking some walks around the yard, goal 15-30 minutes. There is some sensory hypervigilance, which may be working against her during the initial phases of dose adjustment. 02/13: I called pt because she thought appointment was in the afternoon- she was able to quickly connect She was on full patch changed every 2 days Gained 12 lbs including in limbs and eyes-seems to be worse in the morning, and when she is up and around it is better. Questions with the physiology behind this is. She stopped the HT due to the fluid retention, it is getting better now off She got her similar symptoms from before including your symptoms, reflux, asthma-like reaction, same that she has had from all hormones including Testosterone, progesterone only, estrogen only-typically occurs after a few months of use However multiple other medical issues during the same time since last visit She got her covid shot during this time- had been doing well prior to this She feels like her hormones bottomed out after the shot She had a respiratory infection so was on antibiotics She has not been walking around outside, feels like she had a setback with the respiratory infection She knows that the depression is so bad, and knows it gets better with the hormones She doesn't want to give up on trying, feels like she can't live without it, just like her mom experienced, although she had no trouble tolerating the hormones, just felt similarly bad without it She does not wish to give up on trying hormone therapy since she feels so much better with it, if only she can tolerate the side effects. Recommend not restarting hormone therapy until she gets her second booster Covid shot tomorrow, and make sure she tolerates that first. Then will change to Divigel that she can start with quarter or less of the packet daily, and slowly move up to the full dose as tolerated (since she had felt the best with the biest). Again, with such low doses, it would be okay to hold off of the progesterone for the first 1-2 months, and she will need a follow-up within 3 months so that we can talk about the addition of progestin once she tolerates estrogen. There are so many variables that could've contributed to her fluid retention outside of the initial initiation of hormone therapy, including the use of ibuprofen, Covid vaccination, subsequent respiratory illness, use of antibiotics, etc. Discussed when her physical symptoms occur, she needs to follow-up with her medical providers to make sure any life-threatening causes of fluid or breathing difficulties are ruled out, including hypoxemia, liver/kidney/heart problems, asthma, pulmonary edema, etc. Assuming there is no serious medical cause, then continue with what we discussed with going outside in the yard, slowly walking around, building up exercise tolerance beyond walking within the house. Since we're doing close follow-up, she will contact the office to arrange several follow-up appointments now ........ Previously tried/offered: Depoprovera couldn't walk. OCPs multiple sxs of panic/heart racing rushing noises in ear (bathroom fan would sound like an airplane). Antianxiety medications tried multiple MHT estrogen patch- felt too stimulated, even on the 25mcg. Dose was increased to 50 which helped better with sxs, but legs would swell. Tried 4-6 wks for each. feels heart racing when the estrogen seems to be dropping. Within 2 hours of coming off the patch her HR would come down. Combipatch- HR was high 130s sinus tach noted with PCP, so was told her to come off due to possible allergy. Saw cards and EP- told heart is not the problem, but a symptom of what is going on. Came off after 3 days, also felt drunk and dizzy with it. After she stopped taking it states took 1 mo for the drunken dizzy sensation to go away. estrogel- did ok, felt Better with twice a day, but at the higher dose legs would swell. 3 wks between dose adjustments, she did not like the fact that her heart rate would go up when waiting 24 hours between doses (felt that she was metabolizing the estrogen quickly). Bi est- the best she tried, she felt like it was too much. The pharmacist was managing. 3 mg E2/0.5 of E3, she didn't feel comfortable with the way the pharmacist wanted to change the dosing. She felt that it was too E2 heavy. Estratest and NET 0.[address] Trevino- kicked up GERD which she felt pushed into an asthma attack Prometrium 100 made her feel drunk and dizzy. Tried vaginally too, but bladder spasm. compounded transdermally after 20 mg starts getting similar symptoms. Estradiol 3 days into crying for no reason (although dr Trevino's notes says this was with FemHRT) No progestin that she has been able to tolerate-however she does sleep better with the Prometrium. She was nervous about the idea of Mirena because her daughter got hives, and it took a week for someone to remove it, nervous about anything that is not patient controlled. 07/31/21: She was not able to get the divigel due to manufacturing issues, and when it was finally available, it was cost prohibitive. So she has not been on any hormone therapy since this time. Would like to review her concerns about being a CYP supermetabolizer Vit d being offered by her medical provider is making her low estrogen symptoms worse, instead of better. No other major changes in HPI. 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 I spoke with the genetics team, relevant info in 06/16 note. US 07/14: left oophorectomy, 4 mm endometrium, nl Cotesting 12/12 normal The following histories was reviewed and updated today: OB History T6 L6 SAB0 IAB0 Ectopic1 Multiple0 Live Births6 Comment: menarche 12 FFTP 15 menopause age 43 ACTIVE PROBLEM LIST Postablative Hypothyroidism hx of low vitamin D Panic Disorder With Agoraphobia Chronic Fatigue Fibromyalgia Syndrome Blood Pressure Elevated Without History of Htn Impaired Glucose Tolerance Svt (Supraventricular Tachycardia) ([facility]) Ptsd (Post-Traumatic Stress Disorder) Attention Deficit Hyperactivity Disorder (Adhd), Combined Type Recurrent Major Depressive Disorder, in Partial Remission ([facility]) menopause age 43 Tobacco Use Gerd Without Esophagitis Simple Chronic Bronchitis ([facility]) Irritable Bowel Syndrome With Diarrhea Systemic Lupus Erythematosus ([facility]) Burning Sensation of Mouth Burning Sensation of Skin Sleep Difficulties Mitral Valve Prolapse Screening for Malignant Neoplasm of The Cervix Visit for Pelvic Exam Encounter for Screening Mammogram for Malignant Neoplasm of Breast Estrogen Deficiency Adrenal Adenoma, Left Andressa (Obstructive Sleep Apnea) Other Chest Pain Nocturnal Oxygen Desaturation 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) Cyp2c9 Intermediate Metabolizer ([facility]) [id number] Rapid Metabolizer ([facility]) Ugt1a1 Intermediate Metabolizer ([facility]) Heterozygous Factor V Leiden Mutation ([facility]) Hormone Deficiency PAST MEDICAL HISTORY Diagnosis Date Abdominal pain, chronic, right upper quadrant Asthma As a baby, then I outgrew it. Cystocele, midline 05/13/2009 Delayed emergence from anesthesia 09/27/2014 Depression Excessive or frequent menstruation Heavy periods GERD (gastroesophageal reflux disease) History of Graves' disease HSDD 10/21/2011 Hypothyroidism thyroid ablation/hypothyroid Irregular menstrual cycle Irregular periods menopause age 43 2009 in 2012 FSH 47 Moderate dysplasia of cervix 2001 Parent-child conflict 03/07/2013 Rectocele 05/13/2009 SVT (supraventricular tachycardia) ([facility]) Has seen cardiology at OSH, many episodes of fast heart rate are actually sinus tachycardia Syncope 05/14/2013 -Reported that she had one [...] systolic function is normal. EF = 63 5% (2D biplane) - The right ventricle is normal in size. Right ventricular systolic function is normal. - There are no significant valvular abnormalities. - Prior echocardiogram performed on 11/10/11 (stress echo). No significant change. - Tele Tobacco use Weight gain PAST SURGICAL HISTORY Procedure Laterality Date CERVIX UTERI CONIZA LP ELCTRO EXCI 2001 LEEP-Cervix COLONOSCOPY 04/2017 says nl EGD W/O OR W/BRUSH/WASH 01/22/2014,2009 EGD LAPAROSCOPIC CHOLEYCYSTECTOMY 05/19/2011 LIGATE FALLOPIAN TUBE 2003 Tubal ligation PAST SURGICAL HISTORY OF 1998 tubal PAST SURGICAL HISTORY OF 2001 thyroid ablation REMOVAL OF OVARY(S) 09/2014 laparoscopic left, CW, umbilical/upper abdominal adhesions seen benign FAMILY HISTORY Problem Relation Age of Onset Diabetes Mother Type 2 stroke Colon Cancer Father age 64 LA Diabetes Father Type 2 Hypertension Father Coronary Artery Disease Father Hx of [place] Thyroid Sister hx of parathyroid disease/ hx of fibroids other (healthy) Brother other (healthy) Brother Allergies Daughter other (healthy) Daughter other (healthy) Son other (healthy) Son other (healthy) Son other (healthy) Son Colon Cancer Paternal Aunt x5 Colon Cancer Paternal Uncle x8 Social History Tobacco Use Smoking status: Current Every Day Smoker Packs/day: 1.00 Years: 20.00 Pack years: 20.00 Types: Cigarettes Smokeless tobacco: Never Used Vaping Use Vaping Use: Never used Substance Use Topics Alcohol use: No Drug use: No Social History Social History Narrative She lives in [place] [address] 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 See back after 12 weeks after she has a chance to very slowly adjust the dose as tolerated. If she is doing okay with this, we still have the task of finding a progestin that she tolerates. However if she does not do well with this, may need to have her see functional medicine group. No orders found for this visit on 07/31/21. Paul Dick MD Reviewed S+S to report for further evaluation. Note dictated using voice recognition software. documented in this encounter [facility] 07-31-2021 Instructions Paul Dick MD - 07/31/2021 7:42 PM EDT Images from the original note were not included. 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 & Reproductive Biology [employer] [facility] [place] Dept of Subspecialty Women's Health Primary office numbers (at [facility], for general questions, all paperwork requests, etc): General questions ; scheduling appointments (please avoid faxing items to [place] office) Alternative contact numbers: [place] [employer]: [phone] The general scheduling line for all [employer] departments (after hours times available): [phone] [facility] patients [facility] the following [facility]: [facility] & , Main [place] Mondays and Fridays: Add-on virtual visits only Getting an appointment when you need it: Calling the office offers the most options for appointments with me which can be virtual (video visit) or in person on a Wednesday, Wednesday, or . If needing an earlier appointment from what is offered, I can add you to my schedule if you send me a Trillianthart message. Since MyChart messages go to our nursing teams first, it's helpful if you write something like Per our conversation, you mentioned you can add me in for a virtual visit, here are some dates/times in the next few weeks that work for me . It is important to include in your message multiple date/time windows that works for you in the upcoming several weeks, given flexibility in my schedule will vary. Using this phrasing will help prevent delays in getting the message to me. Times I can add patients into the schedule include: Mondays, (virtual only) Tuesdays 3 or 3:30 PM, (virtual or [place] office) Wednesdays 3:30 (virtual or [facility] A10) before 11:30 or between 2:30-3:30, afternoon preferred (virtual or [facility] A81) Fridays, (virtual only) For more routine gynecologic concerns (bleeding, vaginal infections, etc), we work with an amazing group of doctors and nurse practitioners who help each other out, not to mention the [facility] Express Care visits that are available online or at walk-in clinics throughout [facility]. This usually works out great, but just in case you don't get a timely response from me, please don't hesitate to be persistent! Occasionally we may have nurses and schedulers helping out temporarily in our office, causing some delays in getting the message to me. Hearing back about test results : I do not believe in the practice of no news is good news. You should always expect to receive results from our office no later than 2 weeks from when all of the tests have resulted. If you are having your testing done at an outside lab, please ensure that they have my correct fax number to send the results to: . Thank you for allowing me to participate in your care! Colon cancer screening is offered routinely starting at age 45, earlier if there is a family family history or symptoms. With a family history of colon cancer, we would like to start screening 10 years prior to the youngest family member (this is typically a first degree relative such as a mother, father, sibling or child). This should be arranged via your primary care doctor who will typically coordinate this; however, you can feel free to contact me to order if unable to obtain via your regular primary care doctor. documented in this encounter [facility] 07-25-2021 Miscellaneous Notes LV:01/27/2021 The following diagnoses were relevant to this visit: (N95.9) Menopausal and perimenopausal disorder (primary encounter diagnosis) She does not wish to give up on trying hormone therapy since she feels so much better with it, if only she can tolerate the side effects. Recommend not restarting hormone therapy until she gets her second booster Covid shot tomorrow, and make sure she tolerates that first. Then will change to Divigel that she can start with quarter or less of the packet daily, and slowly move up to the full dose as tolerated (since she had felt the best with the biest). Again, with such low doses, it would be okay to hold off of the progesterone for the first 1-2 months, and she will need a follow-up within 3 months so that we can talk about the addition of progestin once she tolerates estrogen. There are so many variables that could've contributed to her fluid retention outside of the initial initiation of hormone therapy, including the use of ibuprofen, Covid vaccination, subsequent respiratory illness, use of antibiotics, etc. Discussed when her physical symptoms occur, she needs to follow-up with her medical providers to make sure any life-threatening causes of fluid or breathing difficulties are ruled out, including hypoxemia, liver/kidney/heart problems, asthma, pulmonary edema, etc. Assuming there is no serious medical cause, then continue with what we discussed with going outside in the yard, slowly walking around, building up exercise tolerance beyond walking within the house. Since we're doing close follow-up, she will contact the office to arrange several follow-up appointments now Future appt:12/18/2021 documented in this encounter [facility] documented as of this encounter (statuses as of 07/21/2021) [facility]2016 History of Past illness Narrative* Problem Noted Date Resolved Date Postmenopausal HRT (hormone replacement therapy) 12/13/2015 11/09/2016 Encounter for screening mamm ogram for malignant neoplasm of breast 12/12/2015 11/09/2016 Delayed emergence from anesthesia 09/27/2014 10/19/2017 On home oxygen therapy 09/27/2014 6 Ovarian cyst 09/24/2014 03/18/2015 Marital conflict 08/30/2013 07/11/2014 Adrenal disorder 05/24/2013 07/11/2014 URI (upper respiratory infection) 05/14/2013 07/11/2014 Overview: -cough , fever, headache, nasal congestion and muscle ache started last Wednesday. -sick contact with her son and her mother who had the same symptoms. -completed 5 days course of Tamiflu. - not likely bacterial. - Likely viral infection Plan: -viral respiratory panel. -Tylenol PRN. Pneumonia 05/14/2013 07/11/2014 Overview: -Atypical pneumonia vs viral pneumonia -She did NOT improve after the 5 days course of Tamiflu. -Her CXR at the OSH showed interstitial infiltrated. -on levofloxacin since 05/11 - Afebrile, no leukocytosis Plan: -CXR: edema versus atypical infection, clinically patient not looking like infection or edema -Wean her for O2 as tolerated. -Stop levofloxacin -Blood culture x2: pending Post-menopause 10/21/2011 03/18/2015 Unspecified aftercare 05/26/2011 10/06/2011 Excessive or frequent menstruation 01/05/2007 10/06/2011 Irregular menstrual cycle 01/05/20072011 Abdominal pain, chronic, right upper quadrant 10/06/2011 Weight gain 10/19/2017 documented as of this encounter (statuses as of 07/27/2021) [facility] History of Past illness Narrative* Problem Noted Date Resolved Date Postmenopausal HRT (hormone replacement therapy) 12/13/2015 11/09/2016 Encounter for screening mamm ogram for malignant neoplasm of breast 12/12/2015 11/09/2016 Delayed emergence from anesthesia 09/27/2014 10/19/2017 On home oxygen therapy 09/27/2014 6 Ovarian cyst 09/24/2014 03/18/2015 Marital conflict 08/30/2013 07/11/2014 Adrenal disorder 05/24/2013 07/11/2014 URI (upper respiratory infection) 05/14/2013 07/11/2014 Overview: -cough , fever, headache, nasal congestion and muscle ache started last Wednesday. -sick contact with her son and her mother who had the same symptoms. -completed 5 days course of Tamiflu. - not likely bacterial. - Likely viral infection Plan: -viral respiratory panel. -Tylenol PRN. Pneumonia 05/14/2013 07/11/2014 Overview: -Atypical pneumonia vs viral pneumonia -She did NOT improve after the 5 days course of Tamiflu. -Her CXR at the OSH showed interstitial infiltrated. -on levofloxacin since 05/11 - Afebrile, no leukocytosis Plan: -CXR: edema versus atypical infection, clinically patient not looking like infection or edema -Wean her for O2 as tolerated. -Stop levofloxacin -Blood culture x2: pending Post-menopause 10/21/2011 03/18/2015 Unspecified aftercare 05/26/2011 10/06/2011 Excessive or frequent menstruation 01/05/2007 10/06/2011 Irregular menstrual cycle 01/05/20072011 Abdominal pain, chronic, right upper quadrant 10/06/2011 Weight gain 10/19/2017 documented as of this encounter (statuses as of 07/31/2021) [facility] History of Past illness Narrative* Problem Noted Date Resolved Date Postmenopausal HRT (hormone replacement therapy) 12/13/2015 11/09/2016 Encounter for screening mamm ogram for malignant neoplasm of breast 12/12/2015 11/09/2016 Delayed emergence from anesthesia 09/27/2014 10/19/2017 On home oxygen therapy 09/27/2014 6 Ovarian cyst 09/24/2014 03/18/2015 Marital conflict 08/30/2013 07/11/2014 Adrenal disorder 05/24/2013 07/11/2014 URI (upper respiratory infection) 05/14/2013 07/11/2014 Overview: -cough , fever, headache, nasal congestion and muscle ache started last Wednesday. -sick contact with her son and her mother who had the same symptoms. -completed 5 days course of Tamiflu. - not likely bacterial. - Likely viral infection Plan: -viral respiratory panel. -Tylenol PRN. Pneumonia 05/14/2013 07/11/2014 Overview: -Atypical pneumonia vs viral pneumonia -She did NOT improve after the 5 days course of Tamiflu. -Her CXR at the OSH showed interstitial infiltrated. -on levofloxacin since 05/11 - Afebrile, no leukocytosis Plan: -CXR: edema versus atypical infection, clinically patient not looking like infection or edema -Wean her for O2 as tolerated. -Stop levofloxacin -Blood culture x2: pending Post-menopause 10/21/2011 03/18/2015 Unspecified aftercare 05/26/2011 10/06/2011 Excessive or frequent menstruation 01/05/2007 10/06/2011 Irregular menstrual cycle 01/05/20072011 Abdominal pain, chronic, right upper quadrant 10/06/2011 Weight gain 10/19/2017 documented as of this encounter (statuses as of 08/01/2021) [facility] History of Past illness Narrative* Problem Noted Date Resolved Date Postmenopausal HRT (hormone replacement therapy) 12/13/2015 11/09/2016 Encounter for screening mamm ogram for malignant neoplasm of breast 12/12/2015 11/09/2016 Delayed emergence from anesthesia 09/27/2014 10/19/2017 On home oxygen therapy 09/27/2014 6 Ovarian cyst 09/24/2014 03/18/2015 Marital conflict 08/30/2013 07/11/2014 Adrenal disorder 05/24/2013 07/11/2014 URI (upper respiratory infection) 05/14/2013 07/11/2014 Overview: -cough , fever, headache, nasal congestion and muscle ache started last Wednesday. -sick contact with her son and her mother who had the same symptoms. -completed 5 days course of Tamiflu. - not likely bacterial. - Likely viral infection Plan: -viral respiratory panel. -Tylenol PRN. Pneumonia 05/14/2013 07/11/2014 Overview: -Atypical pneumonia vs viral pneumonia -She did NOT improve after the 5 days course of Tamiflu. -Her CXR at the OSH showed interstitial infiltrated. -on levofloxacin since 05/11 - Afebrile, no leukocytosis Plan: -CXR: edema versus atypical infection, clinically patient not looking like infection or edema -Wean her for O2 as tolerated. -Stop levofloxacin -Blood culture x2: pending Post-menopause 10/21/2011 03/18/2015 Unspecified aftercare 05/26/2011 10/06/2011 Excessive or frequent menstruation 01/05/2007 10/06/2011 Irregular menstrual cycle 01/05/20072011 Abdominal pain, chronic, right upper quadrant 10/06/2011 Weight gain 10/19/2017 documented as of this encounter (statuses as of 08/06/2021) [facility] History of Past illness Narrative* Problem Noted Date Resolved Date Postmenopausal HRT (hormone replacement therapy) 12/13/2015 11/09/2016 Encounter for screening mamm ogram for malignant neoplasm of breast 12/12/2015 11/09/2016 Delayed emergence from anesthesia 09/27/2014 10/19/2017 On home oxygen therapy 09/27/2014 6 Ovarian cyst 09/24/2014 03/18/2015 Marital conflict 08/30/2013 07/11/2014 Adrenal disorder 05/24/2013 07/11/2014 URI (upper respiratory infection) 05/14/2013 07/11/2014 Overview: -cough , fever, headache, nasal congestion and muscle ache started last Wednesday. -sick contact with her son and her mother who had the same symptoms. -completed 5 days course of Tamiflu. - not likely bacterial. - Likely viral infection Plan: -viral respiratory panel. -Tylenol PRN. Pneumonia 05/14/2013 07/11/2014 Overview: -Atypical pneumonia vs viral pneumonia -She did NOT improve after the 5 days course of Tamiflu. -Her CXR at the OSH showed interstitial infiltrated. -on levofloxacin since 05/11 - Afebrile, no leukocytosis Plan: -CXR: edema versus atypical infection, clinically patient not looking like infection or edema -Wean her for O2 as tolerated. -Stop levofloxacin -Blood culture x2: pending Post-menopause 10/21/2011 03/18/2015 Unspecified aftercare 05/26/2011 10/06/2011 Excessive or frequent menstruation 01/05/2007 10/06/2011 Irregular menstrual cycle 01/05/20072011 Abdominal pain, chronic, right upper quadrant 10/06/2011 Weight gain 10/19/2017 documented as of this encounter (statuses as of 08/29/2021) [facility] History of Past illness Narrative* Problem Noted Date Resolved Date Postmenopausal HRT (hormone replacement therapy) 12/13/2015 11/09/2016 Encounter for screening mamm ogram for malignant neoplasm of breast 12/12/2015 11/09/2016 Delayed emergence from anesthesia 09/27/2014 10/19/2017 On home oxygen therapy 09/27/2014 6 Ovarian cyst 09/24/2014 03/18/2015 Marital conflict 08/30/2013 07/11/2014 Adrenal disorder 05/24/2013 07/11/2014 URI (upper respiratory infection) 05/14/2013 07/11/2014 Overview: -cough , fever, headache, nasal congestion and muscle ache started last Wednesday. -sick contact with her son and her mother who had the same symptoms. -completed 5 days course of Tamiflu. - not likely bacterial. - Likely viral infection Plan: -viral respiratory panel. -Tylenol PRN. Pneumonia 05/14/2013 07/11/2014 Overview: -Atypical pneumonia vs viral pneumonia -She did NOT improve after the 5 days course of Tamiflu. -Her CXR at the OSH showed interstitial infiltrated. -on levofloxacin since 05/11 - Afebrile, no leukocytosis Plan: -CXR: edema versus atypical infection, clinically patient not looking like infection or edema -Wean her for O2 as tolerated. -Stop levofloxacin -Blood culture x2: pending Post-menopause 10/21/2011 03/18/2015 Unspecified aftercare 05/26/2011 10/06/2011 Excessive or frequent menstruation 01/05/2007 10/06/2011 Irregular menstrual cycle 01/05/20072011 Abdominal pain, chronic, right upper quadrant 10/06/2011 Weight gain 10/19/2017 documented as of this encounter (statuses as of 09/03/2021) [facility] History of Past illness Narrative* Problem Noted Date Resolved Date Postmenopausal HRT (hormone replacement therapy) 12/13/2015 11/09/2016 Encounter for screening mamm ogram for malignant neoplasm of breast 12/12/2015 11/09/2016 Delayed emergence from anesthesia 09/27/2014 10/19/2017 On home oxygen therapy 09/27/2014 6 Ovarian cyst 09/24/2014 03/18/2015 Marital conflict 08/30/2013 07/11/2014 Adrenal disorder 05/24/2013 07/11/2014 URI (upper respiratory infection) 05/14/2013 07/11/2014 Overview: -cough , fever, headache, nasal congestion and muscle ache started last Wednesday. -sick contact with her son and her mother who had the same symptoms. -completed 5 days course of Tamiflu. - not likely bacterial. - Likely viral infection Plan: -viral respiratory panel. -Tylenol PRN. Pneumonia 05/14/2013 07/11/2014 Overview: -Atypical pneumonia vs viral pneumonia -She did NOT improve after the 5 days course of Tamiflu. -Her CXR at the OSH showed interstitial infiltrated. -on levofloxacin since 05/11 - Afebrile, no leukocytosis Plan: -CXR: edema versus atypical infection, clinically patient not looking like infection or edema -Wean her for O2 as tolerated. -Stop levofloxacin -Blood culture x2: pending Post-menopause 10/21/2011 03/18/2015 Unspecified aftercare 05/26/2011 10/06/2011 Excessive or frequent menstruation 01/05/2007 10/06/2011 Irregular menstrual cycle 01/05/20072011 Abdominal pain, chronic, right upper quadrant 10/06/2011 Weight gain 10/19/2017 documented as of this encounter (statuses as of 10/06/2021) [facility] History of Past illness Narrative* Problem Noted Date Resolved Date Postmenopausal HRT (hormone replacement therapy) 12/13/2015 11/09/2016 Encounter for screening mamm ogram for malignant neoplasm of breast 12/12/2015 11/09/2016 Delayed emergence from anesthesia 09/27/2014 10/19/2017 On home oxygen therapy 09/27/2014 6 Ovarian cyst 09/24/2014 03/18/2015 Marital conflict 08/30/2013 07/11/2014 Adrenal disorder 05/24/2013 07/11/2014 URI (upper respiratory infection) 05/14/2013 07/11/2014 Overview: -cough , fever, headache, nasal congestion and muscle ache started last Wednesday. -sick contact with her son and her mother who had the same symptoms. -completed 5 days course of Tamiflu. - not likely bacterial. - Likely viral infection Plan: -viral respiratory panel. -Tylenol PRN. Pneumonia 05/14/2013 07/11/2014 Overview: -Atypical pneumonia vs viral pneumonia -She did NOT improve after the 5 days course of Tamiflu. -Her CXR at the OSH showed interstitial infiltrated. -on levofloxacin since 05/11 - Afebrile, no leukocytosis Plan: -CXR: edema versus atypical infection, clinically patient not looking like infection or edema -Wean her for O2 as tolerated. -Stop levofloxacin -Blood culture x2: pending Post-menopause 10/21/2011 03/18/2015 Unspecified aftercare 05/26/2011 10/06/2011 Excessive or frequent menstruation 01/05/2007 10/06/2011 Irregular menstrual cycle 01/05/20072011 Abdominal pain, chronic, right upper quadrant 10/06/2011 Weight gain 10/19/2017 documented as of this encounter (statuses as of 10/30/2021) [facility]08-19-2016 History of Past illness Narrative* Problem Noted Date Resolved Date Postmenopausal HRT (hormone replacement therapy) 12/13/2015 11/09/2016 Encounter for screening mamm ogram for malignant neoplasm of breast 12/12/2015 11/09/2016 Delayed emergence from anesthesia 09/27/2014 10/19/2017 On home oxygen therapy 09/27/2014 6 Ovarian cyst 09/24/2014 03/18/2015 Marital conflict 08/30/2013 07/11/2014 Adrenal disorder 05/24/2013 07/11/2014 URI (upper respiratory infection) 05/14/2013 07/11/2014 Overview: -cough , fever, headache, nasal congestion and muscle ache started last Wednesday. -sick contact with her son and her mother who had the same symptoms. -completed 5 days course of Tamiflu. - not likely bacterial. - Likely viral infection Plan: -viral respiratory panel. -Tylenol PRN. Pneumonia 05/14/2013 07/11/2014 Overview: -Atypical pneumonia vs viral pneumonia -She did NOT improve after the 5 days course of Tamiflu. -Her CXR at the OSH showed interstitial infiltrated. -on levofloxacin since 05/11 - Afebrile, no leukocytosis Plan: -CXR: edema versus atypical infection, clinically patient not looking like infection or edema -Wean her for O2 as tolerated. -Stop levofloxacin -Blood culture x2: pending Post-menopause 10/21/2011 03/18/2015 Unspecified aftercare 05/26/2011 10/06/2011 Excessive or frequent menstruation 01/05/2007 10/06/2011 Irregular menstrual cycle 01/05/20072011 Abdominal pain, chronic, right upper quadrant 10/06/2011 Weight gain 10/19/2017 documented as of this encounter (statuses as of 11/17/2021) [facility]08-19-2016 History of Past illness Narrative* Problem Noted Date Resolved Date Postmenopausal HRT (hormone replacement therapy) 12/13/2015 11/09/2016 Encounter for screening mamm ogram for malignant neoplasm of breast 12/12/2015 11/09/2016 Delayed emergence from anesthesia 09/27/2014 10/19/2017 On home oxygen therapy 09/27/2014 6 Ovarian cyst 09/24/2014 03/18/2015 Marital conflict 08/30/2013 07/11/2014 Adrenal disorder 05/24/2013 07/11/2014 URI (upper respiratory infection) 05/14/2013 07/11/2014 Overview: -cough , fever, headache, nasal congestion and muscle ache started last Wednesday. -sick contact with her son and her mother who had the same symptoms. -completed 5 days course of Tamiflu. - not likely bacterial. - Likely viral infection Plan: -viral respiratory panel. -Tylenol PRN. Pneumonia 05/14/2013 07/11/2014 Overview: -Atypical pneumonia vs viral pneumonia -She did NOT improve after the 5 days course of Tamiflu. -Her CXR at the OSH showed interstitial infiltrated. -on levofloxacin since 05/11 - Afebrile, no leukocytosis Plan: -CXR: edema versus atypical infection, clinically patient not looking like infection or edema -Wean her for O2 as tolerated. -Stop levofloxacin -Blood culture x2: pending Post-menopause 10/21/2011 03/18/2015 Unspecified aftercare 05/26/2011 10/06/2011 Excessive or frequent menstruation 01/05/2007 10/06/2011 Irregular menstrual cycle 01/05/20072011 Abdominal pain, chronic, right upper quadrant 10/06/2011 Weight gain 10/19/2017 documented as of this encounter (statuses as of 12/15/2021) [facility]08-19-2016 History of Past illness Narrative* Problem Noted Date Resolved Date Postmenopausal HRT (hormone replacement therapy) 12/13/2015 11/09/2016 Encounter for screening mamm ogram for malignant neoplasm of breast 12/12/2015 11/09/2016 Delayed emergence from anesthesia 09/27/2014 10/19/2017 On home oxygen therapy 09/27/2014 6 Ovarian cyst 09/24/2014 03/18/2015 Marital conflict 08/30/2013 07/11/2014 Adrenal disorder 05/24/2013 07/11/2014 URI (upper respiratory infection) 05/14/2013 07/11/2014 Overview: -cough , fever, headache, nasal congestion and muscle ache started last Wednesday. -sick contact with her son and her mother who had the same symptoms. -completed 5 days course of Tamiflu. - not likely bacterial. - Likely viral infection Plan: -viral respiratory panel. -Tylenol PRN. Pneumonia 05/14/2013 07/11/2014 Overview: -Atypical pneumonia vs viral pneumonia -She did NOT improve after the 5 days course of Tamiflu. -Her CXR at the OSH showed interstitial infiltrated. -on levofloxacin since 05/11 - Afebrile, no leukocytosis Plan: -CXR: edema versus atypical infection, clinically patient not looking like infection or edema -Wean her for O2 as tolerated. -Stop levofloxacin -Blood culture x2: pending Post-menopause 10/21/2011 03/18/2015 Unspecified aftercare 05/26/2011 10/06/2011 Excessive or frequent menstruation 01/05/2007 10/06/2011 Irregular menstrual cycle 01/05/20072011 Abdominal pain, chronic, right upper quadrant 10/06/2011 Weight gain 10/19/2017 documented as of this encounter (statuses as of 12/18/2021) [facility]08-[facility]2016 History of Past illness Narrative* Problem Noted Date Resolved Date Postmenopausal HRT (hormone replacement therapy) 12/13/2015 11/09/2016 Encounter for screening mamm ogram for malignant neoplasm of breast 12/12/2015 11/09/2016 Delayed emergence from anesthesia 09/27/2014 10/19/2017 On home oxygen therapy 09/27/2014 6 Ovarian cyst 09/24/2014 03/18/2015 Marital conflict 08/30/2013 07/11/2014 Adrenal disorder 05/24/2013 07/11/2014 URI (upper respiratory infection) 05/14/2013 07/11/2014 Overview: -cough , fever, headache, nasal congestion and muscle ache started last Wednesday. -sick contact with her son and her mother who had the same symptoms. -completed 5 days course of Tamiflu. - not likely bacterial. - Likely viral infection Plan: -viral respiratory panel. -Tylenol PRN. Pneumonia 05/14/2013 07/11/2014 Overview: -Atypical pneumonia vs viral pneumonia -She did NOT improve after the 5 days course of Tamiflu. -Her CXR at the OSH showed interstitial infiltrated. -on levofloxacin since 05/11 - Afebrile, no leukocytosis Plan: -CXR: edema versus atypical infection, clinically patient not looking like infection or edema -Wean her for O2 as tolerated. -Stop levofloxacin -Blood culture x2: pending Post-menopause 10/21/2011 03/18/2015 Unspecified aftercare 05/26/2011 10/06/2011 Excessive or frequent menstruation 01/05/2007 10/06/2011 Abdominal pain, chronic, right upper quadrant 10/06/2011 Weight gain 10/19/2017 documented as of this encounter (statuses as of 12/23/2021) [facility]08[facility]2016 History of Past illness Narrative* Problem Noted Date Resolved Date Postmenopausal HRT (hormone replacement therapy) 12/13/2015 11/09/2016 Encounter for screening mamm ogram for malignant neoplasm of breast 12/12/2015 11/09/2016 Delayed emergence from anesthesia 09/27/2014 10/19/2017 On home oxygen therapy 09/27/2014 6 Ovarian cyst 09/24/2014 03/18/2015 Marital conflict 08/30/2013 07/11/2014 Adrenal disorder 05/24/2013 07/11/2014 URI (upper respiratory infection) 05/14/2013 07/11/2014 Overview: -cough , fever, headache, nasal congestion and muscle ache started last Wednesday. -sick contact with her son and her mother who had the same symptoms. -completed 5 days course of Tamiflu. - not likely bacterial. - Likely viral infection Plan: -viral respiratory panel. -Tylenol PRN. Pneumonia 05/14/2013 07/11/2014 Overview: -Atypical pneumonia vs viral pneumonia -She did NOT improve after the 5 days course of Tamiflu. -Her CXR at the OSH showed interstitial infiltrated. -on levofloxacin since 05/11 - Afebrile, no leukocytosis Plan: -CXR: edema versus atypical infection, clinically patient not looking like infection or edema -Wean her for O2 as tolerated. -Stop levofloxacin -Blood culture x2: pending Post-menopause 10/21/2011 03/18/2015 Unspecified aftercare 05/26/2011 10/06/2011 Excessive or frequent menstruation 01/05/2007 10/06/2011 Abdominal pain, chronic, right upper quadrant 10/06/2011 Weight gain 10/19/2017 documented as of this encounter (statuses as of 2021) [facility]08[facility]2016 History of Past illness Narrative* Problem Noted Date Resolved Date Postmenopausal HRT (hormone replacement therapy) 12/13/2015 11/09/2016 Encounter for screening mamm ogram for malignant neoplasm of breast 12/12/2015 11/09/2016 Delayed emergence from anesthesia 09/27/2014 10/19/2017 On home oxygen therapy 09/27/2014 6 Ovarian cyst 09/24/2014 03/18/2015 Marital conflict 08/30/2013 07/11/2014 Adrenal disorder 05/24/2013 07/11/2014 URI (upper respiratory infection) 05/14/2013 07/11/2014 Overview: -cough , fever, headache, nasal congestion and muscle ache started last Wednesday. -sick contact with her son and her mother who had the same symptoms. -completed 5 days course of Tamiflu. - not likely bacterial. - Likely viral infection Plan: -viral respiratory panel. -Tylenol PRN. Pneumonia 05/14/2013 07/11/2014 Overview: -Atypical pneumonia vs viral pneumonia -She did NOT improve after the 5 days course of Tamiflu. -Her CXR at the OSH showed interstitial infiltrated. -on levofloxacin since 05/11 - Afebrile, no leukocytosis Plan: -CXR: edema versus atypical infection, clinically patient not looking like infection or edema -Wean her for O2 as tolerated. -Stop levofloxacin -Blood culture x2: pending Post-menopause 10/21/2011 03/18/2015 Unspecified aftercare 05/26/2011 10/06/2011 Excessive or frequent menstruation 01/05/2007 10/06/2011 Abdominal pain, chronic, right upper quadrant 10/06/2011 Weight gain 10/19/2017 documented as of this encounter (statuses as of 12/26/2021) [facility]08[facility]2016 History of Past illness Narrative* Problem Noted Date Resolved Date Postmenopausal HRT (hormone replacement therapy) 12/13/2015 11/09/2016 Encounter for screening mamm ogram for malignant neoplasm of breast 12/12/2015 11/09/2016 Delayed emergence from anesthesia 09/27/2014 10/19/2017 On home oxygen therapy 09/27/2014 6 Ovarian cyst 09/24/2014 03/18/2015 Marital conflict 08/30/2013 07/11/2014 Adrenal disorder 05/24/2013 07/11/2014 URI (upper respiratory infection) 05/14/2013 07/11/2014 Overview: -cough , fever, headache, nasal congestion and muscle ache started last Wednesday. -sick contact with her son and her mother who had the same symptoms. -completed 5 days course of Tamiflu. - not likely bacterial. - Likely viral infection Plan: -viral respiratory panel. -Tylenol PRN. Pneumonia 05/14/2013 07/11/2014 Overview: -Atypical pneumonia vs viral pneumonia -She did NOT improve after the 5 days course of Tamiflu. -Her CXR at the OSH showed interstitial infiltrated. -on levofloxacin since 05/11 - Afebrile, no leukocytosis Plan: -CXR: edema versus atypical infection, clinically patient not looking like infection or edema -Wean her for O2 as tolerated. -Stop levofloxacin -Blood culture x2: pending Post-menopause 10/21/2011 03/18/2015 Unspecified aftercare 05/26/2011 10/06/2011 Excessive or frequent menstruation 01/05/2007 10/06/2011 Abdominal pain, chronic, right upper quadrant 10/06/2011 Weight gain 10/19/2017 documented as of this encounter (statuses as of 12/30/2021) [facility]08[facility]2016 History of Past illness Narrative* Problem Noted Date Resolved Date Postmenopausal HRT (hormone replacement therapy) 12/13/2015 11/09/2016 Encounter for screening mamm ogram for malignant neoplasm of breast 12/12/2015 11/09/2016 Delayed emergence from anesthesia 09/27/2014 10/19/2017 On home oxygen therapy 09/27/2014 6 Ovarian cyst 09/24/2014 03/18/2015 Marital conflict 08/30/2013 07/11/2014 Adrenal disorder 05/24/2013 07/11/2014 URI (upper respiratory infection) 05/14/2013 07/11/2014 Overview: -cough , fever, headache, nasal congestion and muscle ache started last Wednesday. -sick contact with her son and her mother who had the same symptoms. -completed 5 days course of Tamiflu. - not likely bacterial. - Likely viral infection Plan: -viral respiratory panel. -Tylenol PRN. Pneumonia 05/14/2013 07/11/2014 Overview: -Atypical pneumonia vs viral pneumonia -She did NOT improve after the 5 days course of Tamiflu. -Her CXR at the OSH showed interstitial infiltrated. -on levofloxacin since 05/11 - Afebrile, no leukocytosis Plan: -CXR: edema versus atypical infection, clinically patient not looking like infection or edema -Wean her for O2 as tolerated. -Stop levofloxacin -Blood culture x2: pending Post-menopause 10/21/2011 03/18/2015 Unspecified aftercare 05/26/2011 10/06/2011 Excessive or frequent menstruation 01/05/2007 10/06/2011 Abdominal pain, chronic, right upper quadrant 10/06/2011 Weight gain 10/19/2017 documented as of this encounter (statuses as of 12/31/2021) [facility]08[facility]2016 History of Past illness Narrative* Problem Noted Date Resolved Date Postmenopausal HRT (hormone replacement therapy) 12/13/2015 11/09/2016 Encounter for screening mamm ogram for malignant neoplasm of breast 12/12/2015 11/09/2016 Delayed emergence from anesthesia 09/27/2014 10/19/2017 On home oxygen therapy 09/27/2014 6 Ovarian cyst 09/24/2014 03/18/2015 Marital conflict 08/30/2013 07/11/2014 Adrenal disorder 05/24/2013 07/11/2014 URI (upper respiratory infection) 05/14/2013 07/11/2014 Overview: -cough , fever, headache, nasal congestion and muscle ache started last Wednesday. -sick contact with her son and her mother who had the same symptoms. -completed 5 days course of Tamiflu. - not likely bacterial. - Likely viral infection Plan: -viral respiratory panel. -Tylenol PRN. Pneumonia 05/14/2013 07/11/2014 Overview: -Atypical pneumonia vs viral pneumonia -She did NOT improve after the 5 days course of Tamiflu. -Her CXR at the OSH showed interstitial infiltrated. -on levofloxacin since 05/11 - Afebrile, no leukocytosis Plan: -CXR: edema versus atypical infection, clinically patient not looking like infection or edema -Wean her for O2 as tolerated. -Stop levofloxacin -Blood culture x2: pending Post-menopause 10/21/2011 03/18/2015 Unspecified aftercare 05/26/2011 10/06/2011 Excessive or frequent menstruation 01/05/2007 10/06/2011 Abdominal pain, chronic, right upper quadrant 10/06/2011 Weight gain 10/19/2017 documented as of this encounter (statuses as of 01/01/2022) [facility]08[facility]2016 History of Past illness Narrative* Problem Noted Date Resolved Date Postmenopausal HRT (hormone replacement therapy) 12/13/2015 11/09/2016 Encounter for screening mamm ogram for malignant neoplasm of breast 12/12/2015 11/09/2016 Delayed emergence from anesthesia 09/27/2014 10/19/2017 On home oxygen therapy 09/27/2014 6 Ovarian cyst 09/24/2014 03/18/2015 Marital conflict 08/30/2013 07/11/2014 Adrenal disorder 05/24/2013 07/11/2014 URI (upper respiratory infection) 05/14/2013 07/11/2014 Overview: -cough , fever, headache, nasal congestion and muscle ache started last Wednesday. -sick contact with her son and her mother who had the same symptoms. -completed 5 days course of Tamiflu. - not likely bacterial. - Likely viral infection Plan: -viral respiratory panel. -Tylenol PRN. Pneumonia 05/14/2013 07/11/2014 Overview: -Atypical pneumonia vs viral pneumonia -She did NOT improve after the 5 days course of Tamiflu. -Her CXR at the OSH showed interstitial infiltrated. -on levofloxacin since 05/11 - Afebrile, no leukocytosis Plan: -CXR: edema versus atypical infection, clinically patient not looking like infection or edema -Wean her for O2 as tolerated. -Stop levofloxacin -Blood culture x2: pending Post-menopause 10/21/2011 03/18/2015 Unspecified aftercare 05/26/2011 10/06/2011 Excessive or frequent menstruation 01/05/2007 10/06/2011 Abdominal pain, chronic, right upper quadrant 10/06/2011 Weight gain 10/19/2017 documented as of this encounter (statuses as of 01/02/2022) [facility]08[facility]2016 History of Past illness Narrative* Problem Noted Date Resolved Date Postmenopausal HRT (hormone replacement therapy) 12/13/2015 11/09/2016 Encounter for screening mamm ogram for malignant neoplasm of breast 12/12/2015 11/09/2016 Delayed emergence from anesthesia 09/27/2014 10/19/2017 On home oxygen therapy 09/27/2014 6 Ovarian cyst 09/24/2014 03/18/2015 Marital conflict 08/30/2013 07/11/2014 Adrenal disorder 05/24/2013 07/11/2014 URI (upper respiratory infection) 05/14/2013 07/11/2014 Overview: -cough , fever, headache, nasal congestion and muscle ache started last Wednesday. -sick contact with her son and her mother who had the same symptoms. -completed 5 days course of Tamiflu. - not likely bacterial. - Likely viral infection Plan: -viral respiratory panel. -Tylenol PRN. Pneumonia 05/14/2013 07/11/2014 Overview: -Atypical pneumonia vs viral pneumonia -She did NOT improve after the 5 days course of Tamiflu. -Her CXR at the OSH showed interstitial infiltrated. -on levofloxacin since 05/11 - Afebrile, no leukocytosis Plan: -CXR: edema versus atypical infection, clinically patient not looking like infection or edema -Wean her for O2 as tolerated. -Stop levofloxacin -Blood culture x2: pending Post-menopause 10/21/2011 03/18/2015 Unspecified aftercare 05/26/2011 10/06/2011 Excessive or frequent menstruation 01/05/2007 10/06/2011 Abdominal pain, chronic, right upper quadrant 10/06/2011 Weight gain 10/19/2017 documented as of this encounter (statuses as of 01/02/2022) [facility]2016 History of Past illness Narrative* Problem Noted Date Resolved Date Postmenopausal HRT (hormone replacement therapy) 12/13/2015 11/09/2016 Encounter for screening mamm ogram for malignant neoplasm of breast 12/12/2015 11/09/2016 Delayed emergence from anesthesia 09/27/2014 10/19/2017 On home oxygen therapy 09/27/2014 6 Ovarian cyst 09/24/2014 03/18/2015 Marital conflict 08/30/2013 07/11/2014 Adrenal disorder 05/24/2013 07/11/2014 URI (upper respiratory infection) 05/14/2013 07/11/2014 Overview: -cough , fever, headache, nasal congestion and muscle ache started last Wednesday. -sick contact with her son and her mother who had the same symptoms. -completed 5 days course of Tamiflu. - not likely bacterial. - Likely viral infection Plan: -viral respiratory panel. -Tylenol PRN. Pneumonia 05/14/2013 07/11/2014 Overview: -Atypical pneumonia vs viral pneumonia -She did NOT improve after the 5 days course of Tamiflu. -Her CXR at the OSH showed interstitial infiltrated. -on levofloxacin since 05/11 - Afebrile, no leukocytosis Plan: -CXR: edema versus atypical infection, clinically patient not looking like infection or edema -Wean her for O2 as tolerated. -Stop levofloxacin -Blood culture x2: pending Post-menopause 10/21/2011 03/18/2015 Unspecified aftercare 05/26/2011 10/06/2011 Excessive or frequent menstruation 01/05/2007 10/06/2011 Abdominal pain, chronic, right upper quadrant 10/06/2011 Weight gain 10/19/2017 documented as of this encounter (statuses as of 01/03/2022) [facility]2016 History of Past illness Narrative* Problem Noted Date Resolved Date Postmenopausal HRT (hormone replacement therapy) 12/13/2015 11/09/2016 Encounter for screening mamm ogram for malignant neoplasm of breast 12/12/2015 11/09/2016 Delayed emergence from anesthesia 09/27/2014 10/19/2017 On home oxygen therapy 09/27/2014 6 Ovarian cyst 09/24/2014 03/18/2015 Marital conflict 08/30/2013 07/11/2014 Adrenal disorder 05/24/2013 07/11/2014 URI (upper respiratory infection) 05/14/2013 07/11/2014 Overview: -cough , fever, headache, nasal congestion and muscle ache started last Wednesday. -sick contact with her son and her mother who had the same symptoms. -completed 5 days course of Tamiflu. - not likely bacterial. - Likely viral infection Plan: -viral respiratory panel. -Tylenol PRN. Pneumonia 05/14/2013 07/11/2014 Overview: -Atypical pneumonia vs viral pneumonia -She did NOT improve after the 5 days course of Tamiflu. -Her CXR at the OSH showed interstitial infiltrated. -on levofloxacin since 05/11 - Afebrile, no leukocytosis Plan: -CXR: edema versus atypical infection, clinically patient not looking like infection or edema -Wean her for O2 as tolerated. -Stop levofloxacin -Blood culture x2: pending Post-menopause 10/21/2011 03/18/2015 Unspecified aftercare 05/26/2011 10/06/2011 Excessive or frequent menstruation 01/05/2007 10/06/2011 Abdominal pain, chronic, right upper quadrant 10/06/2011 Weight gain 10/19/2017 documented as of this encounter (statuses as of 01/05/2022) [facility]2016 History of Past illness Narrative* Problem Noted Date Resolved Date Postmenopausal HRT (hormone replacement therapy) 12/13/2015 11/09/2016 Encounter for screening mamm ogram for malignant neoplasm of breast 12/12/2015 11/09/2016 Delayed emergence from anesthesia 09/27/2014 10/19/2017 On home oxygen therapy 09/27/2014 6 Ovarian cyst 09/24/2014 03/18/2015 Marital conflict 08/30/2013 07/11/2014 Adrenal disorder 05/24/2013 07/11/2014 URI (upper respiratory infection) 05/14/2013 07/11/2014 Overview: -cough , fever, headache, nasal congestion and muscle ache started last Wednesday. -sick contact with her son and her mother who had the same symptoms. -completed 5 days course of Tamiflu. - not likely bacterial. - Likely viral infection Plan: -viral respiratory panel. -Tylenol PRN. Pneumonia 05/14/2013 07/11/2014 Overview: -Atypical pneumonia vs viral pneumonia -She did NOT improve after the 5 days course of Tamiflu. -Her CXR at the OSH showed interstitial infiltrated. -on levofloxacin since 05/11 - Afebrile, no leukocytosis Plan: -CXR: edema versus atypical infection, clinically patient not looking like infection or edema -Wean her for O2 as tolerated. -Stop levofloxacin -Blood culture x2: pending Post-menopause 10/21/2011 03/18/2015 Unspecified aftercare 05/26/2011 10/06/2011 Excessive or frequent menstruation 01/05/2007 10/06/2011 Abdominal pain, chronic, right upper quadrant 10/06/2011 Weight gain 10/19/2017 documented as of this encounter (statuses as of 01/27/2022) [facility]2016 History of Past illness Narrative* Problem Noted Date Resolved Date Postmenopausal HRT (hormone replacement therapy) 12/13/2015 11/09/2016 Encounter for screening mamm ogram for malignant neoplasm of breast 12/12/2015 11/09/2016 Delayed emergence from anesthesia 09/27/2014 10/19/2017 On home oxygen therapy 09/27/2014 6 Ovarian cyst 09/24/2014 03/18/2015 Marital conflict 08/30/2013 07/11/2014 Adrenal disorder 05/24/2013 07/11/2014 URI (upper respiratory infection) 05/14/2013 07/11/2014 Overview: -cough , fever, headache, nasal congestion and muscle ache started last Wednesday. -sick contact with her son and her mother who had the same symptoms. -completed 5 days course of Tamiflu. - not likely bacterial. - Likely viral infection Plan: -viral respiratory panel. -Tylenol PRN. Pneumonia 05/14/2013 07/11/2014 Overview: -Atypical pneumonia vs viral pneumonia -She did NOT improve after the 5 days course of Tamiflu. -Her CXR at the OSH showed interstitial infiltrated. -on levofloxacin since 05/11 - Afebrile, no leukocytosis Plan: -CXR: edema versus atypical infection, clinically patient not looking like infection or edema -Wean her for O2 as tolerated. -Stop levofloxacin -Blood culture x2: pending Post-menopause 10/21/2011 03/18/2015 Unspecified aftercare 05/26/2011 10/06/2011 Excessive or frequent menstruation 01/05/2007 10/06/2011 Abdominal pain, chronic, right upper quadrant 10/06/2011 Weight gain 10/19/2017 documented as of this encounter (statuses as of 02/02/2022) [facility]2016 History of Past illness Narrative* Problem Noted Date Resolved Date Postmenopausal HRT (hormone replacement therapy) 12/13/2015 11/09/2016 Encounter for screening mamm ogram for malignant neoplasm of breast 12/12/2015 11/09/2016 Delayed emergence from anesthesia 09/27/2014 10/19/2017 On home oxygen therapy 09/27/2014 6 Ovarian cyst 09/24/2014 03/18/2015 Marital conflict 08/30/2013 07/11/2014 Adrenal disorder 05/24/2013 07/11/2014 URI (upper respiratory infection) 05/14/2013 07/11/2014 Overview: -cough , fever, headache, nasal congestion and muscle ache started last Wednesday. -sick contact with her son and her mother who had the same symptoms. -completed 5 days course of Tamiflu. - not likely bacterial. - Likely viral infection Plan: -viral respiratory panel. -Tylenol PRN. Pneumonia 05/14/2013 07/11/2014 Overview: -Atypical pneumonia vs viral pneumonia -She did NOT improve after the 5 days course of Tamiflu. -Her CXR at the OSH showed interstitial infiltrated. -on levofloxacin since 05/11 - Afebrile, no leukocytosis Plan: -CXR: edema versus atypical infection, clinically patient not looking like infection or edema -Wean her for O2 as tolerated. -Stop levofloxacin -Blood culture x2: pending Post-menopause 10/21/2011 03/18/2015 Unspecified aftercare 05/26/2011 10/06/2011 Excessive or frequent menstruation 01/05/2007 10/06/2011 Abdominal pain, chronic, right upper quadrant 10/06/2011 Weight gain 10/19/2017 documented as of this encounter (statuses as of 02/20/2022) [facility]08-19-2016 History of Past illness Narrative* Problem Noted Date Resolved Date Postmenopausal HRT (hormone replacement therapy) 12/13/2015 11/09/2016 Encounter for screening mamm ogram for malignant neoplasm of breast 12/12/2015 11/09/2016 Delayed emergence from anesthesia 09/27/2014 10/19/2017 On home oxygen therapy 09/27/2014 6 Ovarian cyst 09/24/2014 03/18/2015 Marital conflict 08/30/2013 07/11/2014 Adrenal disorder 05/24/2013 07/11/2014 URI (upper respiratory infection) 05/14/2013 07/11/2014 Overview: -cough , fever, headache, nasal congestion and muscle ache started last Wednesday. -sick contact with her son and her mother who had the same symptoms. -completed 5 days course of Tamiflu. - not likely bacterial. - Likely viral infection Plan: -viral respiratory panel. -Tylenol PRN. Pneumonia 05/14/2013 07/11/2014 Overview: -Atypical pneumonia vs viral pneumonia -She did NOT improve after the 5 days course of Tamiflu. -Her CXR at the OSH showed interstitial infiltrated. -on levofloxacin since 05/11 - Afebrile, no leukocytosis Plan: -CXR: edema versus atypical infection, clinically patient not looking like infection or edema -Wean her for O2 as tolerated. -Stop levofloxacin -Blood culture x2: pending Post-menopause 10/21/2011 03/18/2015 Unspecified aftercare 05/26/2011 10/06/2011 Excessive or frequent menstruation 01/05/2007 10/06/2011 Abdominal pain, chronic, right upper quadrant 10/06/2011 Weight gain 10/19/2017 documented as of this encounter (statuses as of 02/23/2022) [facility]2016 History of Past illness Narrative* Problem Noted Date Resolved Date Postmenopausal HRT (hormone replacement therapy) 12/13/2015 11/09/2016 Encounter for screening mamm ogram for malignant neoplasm of breast 12/12/2015 11/09/2016 Delayed emergence from anesthesia 09/27/2014 10/19/2017 On home oxygen therapy 09/27/2014 6 Ovarian cyst 09/24/2014 03/18/2015 Marital conflict 08/30/2013 07/11/2014 Adrenal disorder 05/24/2013 07/11/2014 URI (upper respiratory infection) 05/14/2013 07/11/2014 Overview: -cough , fever, headache, nasal congestion and muscle ache started last Wednesday. -sick contact with her son and her mother who had the same symptoms. -completed 5 days course of Tamiflu. - not likely bacterial. - Likely viral infection Plan: -viral respiratory panel. -Tylenol PRN. Pneumonia 05/14/2013 07/11/2014 Overview: -Atypical pneumonia vs viral pneumonia -She did NOT improve after the 5 days course of Tamiflu. -Her CXR at the OSH showed interstitial infiltrated. -on levofloxacin since 05/11 - Afebrile, no leukocytosis Plan: -CXR: edema versus atypical infection, clinically patient not looking like infection or edema -Wean her for O2 as tolerated. -Stop levofloxacin -Blood culture x2: pending Post-menopause 10/21/2011 03/18/2015 Unspecified aftercare 05/26/2011 10/06/2011 Excessive or frequent menstruation 01/05/2007 10/06/2011 Abdominal pain, chronic, right upper quadrant 10/06/2011 Weight gain 10/19/2017 documented as of this encounter (statuses as of 02/27/2022) [facility]2016 History of Past illness Narrative* Problem Noted Date Resolved Date Postmenopausal HRT (hormone replacement therapy) 12/13/2015 11/09/2016 Encounter for screening mamm ogram for malignant neoplasm of breast 12/12/2015 11/09/2016 Delayed emergence from anesthesia 09/27/2014 10/19/2017 On home oxygen therapy 09/27/2014 6 Ovarian cyst 09/24/2014 03/18/2015 Marital conflict 08/30/2013 07/11/2014 Adrenal disorder 05/24/2013 07/11/2014 URI (upper respiratory infection) 05/14/2013 07/11/2014 Overview: -cough , fever, headache, nasal congestion and muscle ache started last Wednesday. -sick contact with her son and her mother who had the same symptoms. -completed 5 days course of Tamiflu. - not likely bacterial. - Likely viral infection Plan: -viral respiratory panel. -Tylenol PRN. Pneumonia 05/14/2013 07/11/2014 Overview: -Atypical pneumonia vs viral pneumonia -She did NOT improve after the 5 days course of Tamiflu. -Her CXR at the OSH showed interstitial infiltrated. -on levofloxacin since 05/11 - Afebrile, no leukocytosis Plan: -CXR: edema versus atypical infection, clinically patient not looking like infection or edema -Wean her for O2 as tolerated. -Stop levofloxacin -Blood culture x2: pending Post-menopause 10/21/2011 03/18/2015 Unspecified aftercare 05/26/2011 10/06/2011 Excessive or frequent menstruation 01/05/2007 10/06/2011 Abdominal pain, chronic, right upper quadrant 10/06/2011 Weight gain 10/19/2017 documented as of this encounter (statuses as of 03/09/2022) [facility]2016 History of Past illness Narrative* Problem Noted Date Resolved Date Postmenopausal HRT (hormone replacement therapy) 12/13/2015 11/09/2016 Encounter for screening mamm ogram for malignant neoplasm of breast 12/12/2015 11/09/2016 Delayed emergence from anesthesia 09/27/2014 10/19/2017 On home oxygen therapy 09/27/2014 6 Ovarian cyst 09/24/2014 03/18/2015 Marital conflict 08/30/2013 07/11/2014 Adrenal disorder 05/24/2013 07/11/2014 URI (upper respiratory infection) 05/14/2013 07/11/2014 Overview: -cough , fever, headache, nasal congestion and muscle ache started last Wednesday. -sick contact with her son and her mother who had the same symptoms. -completed 5 days course of Tamiflu. - not likely bacterial. - Likely viral infection Plan: -viral respiratory panel. -Tylenol PRN. Pneumonia 05/14/2013 07/11/2014 Overview: -Atypical pneumonia vs viral pneumonia -She did NOT improve after the 5 days course of Tamiflu. -Her CXR at the OSH showed interstitial infiltrated. -on levofloxacin since 05/11 - Afebrile, no leukocytosis Plan: -CXR: edema versus atypical infection, clinically patient not looking like infection or edema -Wean her for O2 as tolerated. -Stop levofloxacin -Blood culture x2: pending Post-menopause 10/21/2011 03/18/2015 Unspecified aftercare 05/26/2011 10/06/2011 Excessive or frequent menstruation 01/05/2007 10/06/2011 Abdominal pain, chronic, right upper quadrant 10/06/2011 Weight gain 10/19/2017 documented as of this encounter (statuses as of 03/16/2022) [facility]2016 History of Past illness Narrative* Problem Noted Date Resolved Date Postmenopausal HRT (hormone replacement therapy) 12/13/2015 11/09/2016 Encounter for screening mamm ogram for malignant neoplasm of breast 12/12/2015 11/09/2016 Delayed emergence from anesthesia 09/27/2014 10/19/2017 On home oxygen therapy 09/27/2014 6 Ovarian cyst 09/24/2014 03/18/2015 Marital conflict 08/30/2013 07/11/2014 Adrenal disorder 05/24/2013 07/11/2014 URI (upper respiratory infection) 05/14/2013 07/11/2014 Overview: -cough , fever, headache, nasal congestion and muscle ache started last Wednesday. -sick contact with her son and her mother who had the same symptoms. -completed 5 days course of Tamiflu. - not likely bacterial. - Likely viral infection Plan: -viral respiratory panel. -Tylenol PRN. Pneumonia 05/14/2013 07/11/2014 Overview: -Atypical pneumonia vs viral pneumonia -She did NOT improve after the 5 days course of Tamiflu. -Her CXR at the OSH showed interstitial infiltrated. -on levofloxacin since 05/11 - Afebrile, no leukocytosis Plan: -CXR: edema versus atypical infection, clinically patient not looking like infection or edema -Wean her for O2 as tolerated. -Stop levofloxacin -Blood culture x2: pending Post-menopause 10/21/2011 03/18/2015 Unspecified aftercare 05/26/2011 10/06/2011 Excessive or frequent menstruation 01/05/2007 10/06/2011 Abdominal pain, chronic, right upper quadrant 10/06/2011 Weight gain 10/19/2017 documented as of this encounter (statuses as of 03/27/2022) [facility]2016 History of Past illness Narrative* Problem Noted Date Resolved Date Postmenopausal HRT (hormone replacement therapy) 12/13/2015 11/09/2016 Encounter for screening mamm ogram for malignant neoplasm of breast 12/12/2015 11/09/2016 Delayed emergence from anesthesia 09/27/2014 10/19/2017 On home oxygen therapy 09/27/2014 6 Ovarian cyst 09/24/2014 03/18/2015 Marital conflict 08/30/2013 07/11/2014 Adrenal disorder 05/24/2013 07/11/2014 URI (upper respiratory infection) 05/14/2013 07/11/2014 Overview: -cough , fever, headache, nasal congestion and muscle ache started last Wednesday. -sick contact with her son and her mother who had the same symptoms. -completed 5 days course of Tamiflu. - not likely bacterial. - Likely viral infection Plan: -viral respiratory panel. -Tylenol PRN. Pneumonia 05/14/2013 07/11/2014 Overview: -Atypical pneumonia vs viral pneumonia -She did NOT improve after the 5 days course of Tamiflu. -Her CXR at the OSH showed interstitial infiltrated. -on levofloxacin since 05/11 - Afebrile, no leukocytosis Plan: -CXR: edema versus atypical infection, clinically patient not looking like infection or edema -Wean her for O2 as tolerated. -Stop levofloxacin -Blood culture x2: pending Post-menopause 10/21/2011 03/18/2015 Unspecified aftercare 05/26/2011 10/06/2011 Excessive or frequent menstruation 01/05/2007 10/06/2011 Abdominal pain, chronic, right upper quadrant 10/06/2011 Weight gain 10/19/2017 documented as of this encounter (statuses as of 05/02/2022) [facility]2016 History of Past illness Narrative* Problem Noted Date Resolved Date Postmenopausal HRT (hormone replacement therapy) 12/13/2015 11/09/2016 Encounter for screening mamm ogram for malignant neoplasm of breast 12/12/2015 11/09/2016 Delayed emergence from anesthesia 09/27/2014 10/19/2017 On home oxygen therapy 09/27/2014 6 Ovarian cyst 09/24/2014 03/18/2015 Marital conflict 08/30/2013 07/11/2014 Adrenal disorder 05/24/2013 07/11/2014 URI (upper respiratory infection) 05/14/2013 07/11/2014 Overview: -cough , fever, headache, nasal congestion and muscle ache started last Wednesday. -sick contact with her son and her mother who had the same symptoms. -completed 5 days course of Tamiflu. - not likely bacterial. - Likely viral infection Plan: -viral respiratory panel. -Tylenol PRN. Pneumonia 05/14/2013 07/11/2014 Overview: -Atypical pneumonia vs viral pneumonia -She did NOT improve after the 5 days course of Tamiflu. -Her CXR at the OSH showed interstitial infiltrated. -on levofloxacin since 05/11 - Afebrile, no leukocytosis Plan: -CXR: edema versus atypical infection, clinically patient not looking like infection or edema -Wean her for O2 as tolerated. -Stop levofloxacin -Blood culture x2: pending Post-menopause 10/21/2011 03/18/2015 Unspecified aftercare 05/26/2011 10/06/2011 Excessive or frequent menstruation 01/05/2007 10/06/2011 Abdominal pain, chronic, right upper quadrant 10/06/2011 Weight gain 10/19/2017 documented as of this encounter (statuses as of 05/21/2022) [facility]2016 History of Past illness Narrative* Problem Noted Date Resolved Date Postmenopausal HRT (hormone replacement therapy) 12/13/2015 11/09/2016 Encounter for screening mamm ogram for malignant neoplasm of breast 12/12/2015 11/09/2016 Delayed emergence from anesthesia 09/27/2014 10/19/2017 On home oxygen therapy 09/27/2014 6 Ovarian cyst 09/24/2014 03/18/2015 Marital conflict 08/30/2013 07/11/2014 Adrenal disorder 05/24/2013 07/11/2014 URI (upper respiratory infection) 05/14/2013 07/11/2014 Overview: -cough , fever, headache, nasal congestion and muscle ache started last Wednesday. -sick contact with her son and her mother who had the same symptoms. -completed 5 days course of Tamiflu. - not likely bacterial. - Likely viral infection Plan: -viral respiratory panel. -Tylenol PRN. Pneumonia 05/14/2013 07/11/2014 Overview: -Atypical pneumonia vs viral pneumonia -She did NOT improve after the 5 days course of Tamiflu. -Her CXR at the OSH showed interstitial infiltrated. -on levofloxacin since 05/11 - Afebrile, no leukocytosis Plan: -CXR: edema versus atypical infection, clinically patient not looking like infection or edema -Wean her for O2 as tolerated. -Stop levofloxacin -Blood culture x2: pending Post-menopause 10/21/2011 03/18/2015 Unspecified aftercare 05/26/2011 10/06/2011 Excessive or frequent menstruation 01/05/2007 10/06/2011 Abdominal pain, chronic, right upper quadrant 10/06/2011 Weight gain 10/19/2017 documented as of this encounter (statuses as of 05/28/2022) [facility]2016 History of Past illness Narrative* Problem Noted Date Resolved Date Postmenopausal HRT (hormone replacement therapy) 12/13/2015 11/09/2016 Encounter for screening mamm ogram for malignant neoplasm of breast 12/12/2015 11/09/2016 Delayed emergence from anesthesia 09/27/2014 10/19/2017 On home oxygen therapy 09/27/2014 6 Ovarian cyst 09/24/2014 03/18/2015 Marital conflict 08/30/2013 07/11/2014 Adrenal disorder 05/24/2013 07/11/2014 URI (upper respiratory infection) 05/14/2013 07/11/2014 Overview: -cough , fever, headache, nasal congestion and muscle ache started last Wednesday. -sick contact with her son and her mother who had the same symptoms. -completed 5 days course of Tamiflu. - not likely bacterial. - Likely viral infection Plan: -viral respiratory panel. -Tylenol PRN. Pneumonia 05/14/2013 07/11/2014 Overview: -Atypical pneumonia vs viral pneumonia -She did NOT improve after the 5 days course of Tamiflu. -Her CXR at the OSH showed interstitial infiltrated. -on levofloxacin since 05/11 - Afebrile, no leukocytosis Plan: -CXR: edema versus atypical infection, clinically patient not looking like infection or edema -Wean her for O2 as tolerated. -Stop levofloxacin -Blood culture x2: pending Post-menopause 10/21/2011 03/18/2015 Unspecified aftercare 05/26/2011 10/06/2011 Excessive or frequent menstruation 01/05/2007 10/06/2011 Abdominal pain, chronic, right upper quadrant 10/06/2011 Weight gain 10/19/2017 documented as of this encounter (statuses as of 06/16/2022) [facility]2016 History of Past illness Narrative* Problem Noted Date Resolved Date Postmenopausal HRT (hormone replacement therapy) 12/13/2015 11/09/2016 Encounter for screening mamm ogram for malignant neoplasm of breast 12/12/2015 11/09/2016 Delayed emergence from anesthesia 09/27/2014 10/19/2017 On home oxygen therapy 09/27/2014 6 Ovarian cyst 09/24/2014 03/18/2015 Marital conflict 08/30/2013 07/11/2014 Adrenal disorder 05/24/2013 07/11/2014 URI (upper respiratory infection) 05/14/2013 07/11/2014 Overview: -cough , fever, headache, nasal congestion and muscle ache started last Wednesday. -sick contact with her son and her mother who had the same symptoms. -completed 5 days course of Tamiflu. - not likely bacterial. - Likely viral infection Plan: -viral respiratory panel. -Tylenol PRN. Pneumonia 05/14/2013 07/11/2014 Overview: -Atypical pneumonia vs viral pneumonia -She did NOT improve after the 5 days course of Tamiflu. -Her CXR at the OSH showed interstitial infiltrated. -on levofloxacin since 05/11 - Afebrile, no leukocytosis Plan: -CXR: edema versus atypical infection, clinically patient not looking like infection or edema -Wean her for O2 as tolerated. -Stop levofloxacin -Blood culture x2: pending Post-menopause 10/21/2011 03/18/2015 Unspecified aftercare 05/26/2011 10/06/2011 Excessive or frequent menstruation 01/05/2007 10/06/2011 Abdominal pain, chronic, right upper quadrant 10/06/2011 Weight gain 10/19/2017 documented as of this encounter (statuses as of 06/17/2022) [facility]2016 History of Past illness Narrative* Problem Noted Date Resolved Date Postmenopausal HRT (hormone replacement therapy) 12/13/2015 11/09/2016 Encounter for screening mamm ogram for malignant neoplasm of breast 12/12/2015 11/09/2016 Delayed emergence from anesthesia 09/27/2014 10/19/2017 On home oxygen therapy 09/27/2014 6 Ovarian cyst 09/24/2014 03/18/2015 Marital conflict 08/30/2013 07/11/2014 Adrenal disorder 05/24/2013 07/11/2014 URI (upper respiratory infection) 05/14/2013 07/11/2014 Overview: -cough , fever, headache, nasal congestion and muscle ache started last Wednesday. -sick contact with her son and her mother who had the same symptoms. -completed 5 days course of Tamiflu. - not likely bacterial. - Likely viral infection Plan: -viral respiratory panel. -Tylenol PRN. Pneumonia 05/14/2013 07/11/2014 Overview: -Atypical pneumonia vs viral pneumonia -She did NOT improve after the 5 days course of Tamiflu. -Her CXR at the OSH showed interstitial infiltrated. -on levofloxacin since 05/11 - Afebrile, no leukocytosis Plan: -CXR: edema versus atypical infection, clinically patient not looking like infection or edema -Wean her for O2 as tolerated. -Stop levofloxacin -Blood culture x2: pending Post-menopause 10/21/2011 03/18/2015 Unspecified aftercare 05/26/2011 10/06/2011 Excessive or frequent menstruation 01/05/2007 10/06/2011 Abdominal pain, chronic, right upper quadrant 10/06/2011 Weight gain 10/19/2017 documented as of this encounter (statuses as of 06/22/2022) [facility]2016 History of Past illness Narrative* Problem Noted Date Resolved Date Postmenopausal HRT (hormone replacement therapy) 12/13/2015 11/09/2016 Encounter for screening mamm ogram for malignant neoplasm of breast 12/12/2015 11/09/2016 Delayed emergence from anesthesia 09/27/2014 10/19/2017 On home oxygen therapy 09/27/2014 6 Ovarian cyst 09/24/2014 03/18/2015 Marital conflict 08/30/2013 07/11/2014 Adrenal disorder 05/24/2013 07/11/2014 URI (upper respiratory infection) 05/14/2013 07/11/2014 Overview: -cough , fever, headache, nasal congestion and muscle ache started last Wednesday. -sick contact with her son and her mother who had the same symptoms. -completed 5 days course of Tamiflu. - not likely bacterial. - Likely viral infection Plan: -viral respiratory panel. -Tylenol PRN. Pneumonia 05/14/2013 07/11/2014 Overview: -Atypical pneumonia vs viral pneumonia -She did NOT improve after the 5 days course of Tamiflu. -Her CXR at the OSH showed interstitial infiltrated. -on levofloxacin since 05/11 - Afebrile, no leukocytosis Plan: -CXR: edema versus atypical infection, clinically patient not looking like infection or edema -Wean her for O2 as tolerated. -Stop levofloxacin -Blood culture x2: pending Post-menopause 10/21/2011 03/18/2015 Unspecified aftercare 05/26/2011 10/06/2011 Excessive or frequent menstruation 01/05/2007 10/06/2011 Abdominal pain, chronic, right upper quadrant 10/06/2011 Weight gain 10/19/2017 documented as of this encounter (statuses as of 06/23/2022) [facility]2016 History of Past illness Narrative* Problem Noted Date Resolved Date Postmenopausal HRT (hormone replacement therapy) 12/13/2015 11/09/2016 Encounter for screening mamm ogram for malignant neoplasm of breast 12/12/2015 11/09/2016 Delayed emergence from anesthesia 09/27/2014 10/19/2017 On home oxygen therapy 09/27/2014 6 Ovarian cyst 09/24/2014 03/18/2015 Marital conflict 08/30/2013 07/11/2014 Adrenal disorder 05/24/2013 07/11/2014 URI (upper respiratory infection) 05/14/2013 07/11/2014 Overview: -cough , fever, headache, nasal congestion and muscle ache started last Wednesday. -sick contact with her son and her mother who had the same symptoms. -completed 5 days course of Tamiflu. - not likely bacterial. - Likely viral infection Plan: -viral respiratory panel. -Tylenol PRN. Pneumonia 05/14/2013 07/11/2014 Overview: -Atypical pneumonia vs viral pneumonia -She did NOT improve after the 5 days course of Tamiflu. -Her CXR at the OSH showed interstitial infiltrated. -on levofloxacin since 05/11 - Afebrile, no leukocytosis Plan: -CXR: edema versus atypical infection, clinically patient not looking like infection or edema -Wean her for O2 as tolerated. -Stop levofloxacin -Blood culture x2: pending Post-menopause 10/21/2011 03/18/2015 Unspecified aftercare 05/26/2011 10/06/2011 Excessive or frequent menstruation 01/05/2007 10/06/2011 Abdominal pain, chronic, right upper quadrant 10/06/2011 Weight gain 10/19/2017 documented as of this encounter (statuses as of 06/30/2022) [facility]2016 History of Past illness Narrative* Problem Noted Date Resolved Date Postmenopausal HRT (hormone replacement therapy) 12/13/2015 11/09/2016 Encounter for screening mamm ogram for malignant neoplasm of breast 12/12/2015 11/09/2016 Delayed emergence from anesthesia 09/27/2014 10/19/2017 On home oxygen therapy 09/27/2014 6 Ovarian cyst 09/24/2014 03/18/2015 Marital conflict 08/30/2013 07/11/2014 Adrenal disorder 05/24/2013 07/11/2014 URI (upper respiratory infection) 05/14/2013 07/11/2014 Overview: -cough , fever, headache, nasal congestion and muscle ache started last Wednesday. -sick contact with her son and her mother who had the same symptoms. -completed 5 days course of Tamiflu. - not likely bacterial. - Likely viral infection Plan: -viral respiratory panel. -Tylenol PRN. Pneumonia 05/14/2013 07/11/2014 Overview: -Atypical pneumonia vs viral pneumonia -She did NOT improve after the 5 days course of Tamiflu. -Her CXR at the OSH showed interstitial infiltrated. -on levofloxacin since 05/11 - Afebrile, no leukocytosis Plan: -CXR: edema versus atypical infection, clinically patient not looking like infection or edema -Wean her for O2 as tolerated. -Stop levofloxacin -Blood culture x2: pending Post-menopause 10/21/2011 03/18/2015 Unspecified aftercare 05/26/2011 10/06/2011 Excessive or frequent menstruation 01/05/2007 10/06/2011 Abdominal pain, chronic, right upper quadrant 10/06/2011 Weight gain 10/19/2017 documented as of this encounter (statuses as of 07/04/2022) [facility]2016 History of Past illness Narrative* Problem Noted Date Resolved Date Postmenopausal HRT (hormone replacement therapy) 12/13/2015 11/09/2016 Encounter for screening mamm ogram for malignant neoplasm of breast 12/12/2015 11/09/2016 Delayed emergence from anesthesia 09/27/2014 10/19/2017 On home oxygen therapy 09/27/2014 6 Ovarian cyst 09/24/2014 03/18/2015 Marital conflict 08/30/2013 07/11/2014 Adrenal disorder 05/24/2013 07/11/2014 URI (upper respiratory infection) 05/14/2013 07/11/2014 Overview: -cough , fever, headache, nasal congestion and muscle ache started last Wednesday. -sick contact with her son and her mother who had the same symptoms. -completed 5 days course of Tamiflu. - not likely bacterial. - Likely viral infection Plan: -viral respiratory panel. -Tylenol PRN. Pneumonia 05/14/2013 07/11/2014 Overview: -Atypical pneumonia vs viral pneumonia -She did NOT improve after the 5 days course of Tamiflu. -Her CXR at the OSH showed interstitial infiltrated. -on levofloxacin since 05/11 - Afebrile, no leukocytosis Plan: -CXR: edema versus atypical infection, clinically patient not looking like infection or edema -Wean her for O2 as tolerated. -Stop levofloxacin -Blood culture x2: pending Post-menopause 10/21/2011 03/18/2015 Unspecified aftercare 05/26/2011 10/06/2011 Excessive or frequent menstruation 01/05/2007 10/06/2011 Abdominal pain, chronic, right upper quadrant 10/06/2011 Weight gain 10/19/2017 documented as of this encounter (statuses as of 07/08/2022) [facility]08-19-2016 History of Past illness Narrative* Problem Noted Date Resolved Date Postmenopausal HRT (hormone replacement therapy) 12/13/2015 11/09/2016 Encounter for screening mamm ogram for malignant neoplasm of breast 12/12/2015 11/09/2016 Delayed emergence from anesthesia 09/27/2014 10/19/2017 On home oxygen therapy 09/27/2014 6 Ovarian cyst 09/24/2014 03/18/2015 Marital conflict 08/30/2013 07/11/2014 Adrenal disorder 05/24/2013 07/11/2014 URI (upper respiratory infection) 05/14/2013 07/11/2014 Overview: -cough , fever, headache, nasal congestion and muscle ache started last Wednesday. -sick contact with her son and her mother who had the same symptoms. -completed 5 days course of Tamiflu. - not likely bacterial. - Likely viral infection Plan: -viral respiratory panel. -Tylenol PRN. Pneumonia 05/14/2013 07/11/2014 Overview: -Atypical pneumonia vs viral pneumonia -She did NOT improve after the 5 days course of Tamiflu. -Her CXR at the OSH showed interstitial infiltrated. -on levofloxacin since 05/11 - Afebrile, no leukocytosis Plan: -CXR: edema versus atypical infection, clinically patient not looking like infection or edema -Wean her for O2 as tolerated. -Stop levofloxacin -Blood culture x2: pending Post-menopause 10/21/2011 03/18/2015 Unspecified aftercare 05/26/2011 10/06/2011 Excessive or frequent menstruation 01/05/2007 10/06/2011 Abdominal pain, chronic, right upper quadrant 10/06/2011 Weight gain 10/19/2017 documented as of this encounter (statuses as of 08/07/2022) [facility]2016 History of Past illness Narrative* Problem Noted Date Diagnosed Date Resolved Date Postmenopausal HRT (hormone replacement therapy) 12/13/2015 11/09/2016 Encounter for screening mamm ogram for malignant neoplasm of breast 12/12/2015 11/09/2016 Delayed emergence from anesthesia 09/27/2014 10/19/2017 On home oxygen therapy 09/27/201412/12 Ovarian cyst 09/24/2014 03/18/2015 Marital conflict 08/30/2013 07/11/2014 Adrenal disorder 05/24/2013 07/11/2014 URI (upper respiratory infection) 05/14/2013 07/11/2014 Overview: -cough , fever, headache, nasal congestion and muscle ache started last Wednesday. -sick contact with her son and her mother who had the same symptoms. -completed 5 days course of Tamiflu. - not likely bacterial. - Likely viral infection Plan: -viral respiratory panel. -Tylenol PRN. Pneumonia 05/14/2013 07/11/2014 Overview: -Atypical pneumonia vs viral pneumonia -She did NOT improve after the 5 days course of Tamiflu. -Her CXR at the OSH showed interstitial infiltrated. -on levofloxacin since 05/11 - Afebrile, no leukocytosis Plan: -CXR: edema versus atypical infection, clinically patient not looking like infection or edema -Wean her for O2 as tolerated. -Stop levofloxacin -Blood culture x2: pending Post-menopause 10/21/2011 03/18/2015 Unspecified aftercare 05/26/20112011 Excessive or frequent menstruation 01/05/2007 10/06/2011 Abdominal pain, chronic, right upper quadrant 10/06/2011 Weight gain 10/19/2017 documented as of this encounter (statuses as of 11/24/2022) [facility] History of Past illness Narrative* Problem Noted Date Diagnosed Date Resolved Date Postmenopausal HRT (hormone replacement therapy) 12/13/2015 11/09/2016 Encounter for screening mamm ogram for malignant neoplasm of breast 12/12/2015 11/09/2016 Delayed emergence from anesthesia 09/27/2014 10/19/2017 On home oxygen therapy 09/27/201412/12 Ovarian cyst 09/24/2014 03/18/2015 Marital conflict 08/30/2013 07/11/2014 Adrenal disorder 05/24/2013 07/11/2014 URI (upper respiratory infection) 05/14/2013 07/11/2014 Overview: -cough , fever, headache, nasal congestion and muscle ache started last Wednesday. -sick contact with her son and her mother who had the same symptoms. -completed 5 days course of Tamiflu. - not likely bacterial. - Likely viral infection Plan: -viral respiratory panel. -Tylenol PRN. Pneumonia 05/14/2013 07/11/2014 Overview: -Atypical pneumonia vs viral pneumonia -She did NOT improve after the 5 days course of Tamiflu. -Her CXR at the OSH showed interstitial infiltrated. -on levofloxacin since 05/11 - Afebrile, no leukocytosis Plan: -CXR: edema versus atypical infection, clinically patient not looking like infection or edema -Wean her for O2 as tolerated. -Stop levofloxacin -Blood culture x2: pending Post-menopause 10/21/2011 03/18/2015 Unspecified aftercare 05/26/20112011 Excessive or frequent menstruation 01/05/2007 10/06/2011 Abdominal pain, chronic, right upper quadrant 10/06/2011 Weight gain 10/19/2017 documented as of this encounter (statuses as of 12/05/2022) [facility]2016 History of Past illness Narrative* Problem Noted Date Diagnosed Date Resolved Date Postmenopausal HRT (hormone replacement therapy) 12/13/2015 11/09/2016 Encounter for screening mamm ogram for malignant neoplasm of breast 12/12/2015 11/09/2016 Delayed emergence from anesthesia 09/27/2014 10/19/2017 On home oxygen therapy 09/27/201412/12 Ovarian cyst 09/24/2014 03/18/2015 Marital conflict 08/30/2013 07/11/2014 Adrenal disorder 05/24/2013 07/11/2014 URI (upper respiratory infection) 05/14/2013 07/11/2014 Overview: -cough , fever, headache, nasal congestion and muscle ache started last Wednesday. -sick contact with her son and her mother who had the same symptoms. -completed 5 days course of Tamiflu. - not likely bacterial. - Likely viral infection Plan: -viral respiratory panel. -Tylenol PRN. Pneumonia 05/14/2013 07/11/2014 Overview: -Atypical pneumonia vs viral pneumonia -She did NOT improve after the 5 days course of Tamiflu. -Her CXR at the OSH showed interstitial infiltrated. -on levofloxacin since 05/11 - Afebrile, no leukocytosis Plan: -CXR: edema versus atypical infection, clinically patient not looking like infection or edema -Wean her for O2 as tolerated. -Stop levofloxacin -Blood culture x2: pending Post-menopause 10/21/2011 03/18/2015 Unspecified aftercare 05/26/20112011 Excessive or frequent menstruation 01/05/2007 10/06/2011 Abdominal pain, chronic, right upper quadrant 10/06/2011 Weight gain 10/19/2017 documented as of this encounter (statuses as of 12/11/2022) [facility]2016 History of Past illness Narrative* Problem Noted Date Diagnosed Date Resolved Date Postmenopausal HRT (hormone replacement therapy) 12/13/2015 11/09/2016 Encounter for screening mamm ogram for malignant neoplasm of breast 12/12/2015 11/09/2016 Delayed emergence from anesthesia 09/27/2014 10/19/2017 On home oxygen therapy 09/27/201412/12 Ovarian cyst 09/24/2014 03/18/2015 Marital conflict 08/30/2013 07/11/2014 Adrenal disorder 05/24/2013 07/11/2014 URI (upper respiratory infection) 05/14/2013 07/11/2014 Overview: -cough , fever, headache, nasal congestion and muscle ache started last Wednesday. -sick contact with her son and her mother who had the same symptoms. -completed 5 days course of Tamiflu. - not likely bacterial. - Likely viral infection Plan: -viral respiratory panel. -Tylenol PRN. Pneumonia 05/14/2013 07/11/2014 Overview: -Atypical pneumonia vs viral pneumonia -She did NOT improve after the 5 days course of Tamiflu. -Her CXR at the OSH showed interstitial infiltrated. -on levofloxacin since 05/11 - Afebrile, no leukocytosis Plan: -CXR: edema versus atypical infection, clinically patient not looking like infection or edema -Wean her for O2 as tolerated. -Stop levofloxacin -Blood culture x2: pending Post-menopause 10/21/2011 03/18/2015 Unspecified aftercare 05/26/20112011 Excessive or frequent menstruation 01/05/2007 10/06/2011 Abdominal pain, chronic, right upper quadrant 10/06/2011 Weight gain 10/19/2017 documented as of this encounter (statuses as of 01/09/2023) [facility]2016 History of Past illness Narrative* Problem Noted Date Diagnosed Date Resolved Date Postmenopausal HRT (hormone replacement therapy) 12/13/2015 11/09/2016 Encounter for screening mamm ogram for malignant neoplasm of breast 12/12/2015 11/09/2016 Delayed emergence from anesthesia 09/27/2014 10/19/2017 On home oxygen therapy 09/27/201412/12 Ovarian cyst 09/24/2014 03/18/2015 Marital conflict 08/30/2013 07/11/2014 Adrenal disorder 05/24/2013 07/11/2014 URI (upper respiratory infection) 05/14/2013 07/11/2014 Overview: -cough , fever, headache, nasal congestion and muscle ache started last Wednesday. -sick contact with her son and her mother who had the same symptoms. -completed 5 days course of Tamiflu. - not likely bacterial. - Likely viral infection Plan: -viral respiratory panel. -Tylenol PRN. Pneumonia 05/14/2013 07/11/2014 Overview: -Atypical pneumonia vs viral pneumonia -She did NOT improve after the 5 days course of Tamiflu. -Her CXR at the OSH showed interstitial infiltrated. -on levofloxacin since 05/11 - Afebrile, no leukocytosis Plan: -CXR: edema versus atypical infection, clinically patient not looking like infection or edema -Wean her for O2 as tolerated. -Stop levofloxacin -Blood culture x2: pending Post-menopause 10/21/2011 03/18/2015 Unspecified aftercare 05/26/20112011 Excessive or frequent menstruation 01/05/2007 10/06/2011 Abdominal pain, chronic, right upper quadrant 10/06/2011 Weight gain 10/19/2017 documented as of this encounter (statuses as of 02/02/2023) [facility]2016 History of Past illness Narrative* Problem Noted Date Diagnosed Date Resolved Date Postmenopausal HRT (hormone replacement therapy) 12/13/2015 11/09/2016 Encounter for screening mamm ogram for malignant neoplasm of breast 12/12/2015 11/09/2016 Delayed emergence from anesthesia 09/27/2014 10/19/2017 On home oxygen therapy 09/27/201412/12 Ovarian cyst 09/24/2014 03/18/2015 Marital conflict 08/30/2013 07/11/2014 Adrenal disorder 05/24/2013 07/11/2014 URI (upper respiratory infection) 05/14/2013 07/11/2014 Overview: -cough , fever, headache, nasal congestion and muscle ache started last Wednesday. -sick contact with her son and her mother who had the same symptoms. -completed 5 days course of Tamiflu. - not likely bacterial. - Likely viral infection Plan: -viral respiratory panel. -Tylenol PRN. Pneumonia 05/14/2013 07/11/2014 Overview: -Atypical pneumonia vs viral pneumonia -She did NOT improve after the 5 days course of Tamiflu. -Her CXR at the OSH showed interstitial infiltrated. -on levofloxacin since 05/11 - Afebrile, no leukocytosis Plan: -CXR: edema versus atypical infection, clinically patient not looking like infection or edema -Wean her for O2 as tolerated. -Stop levofloxacin -Blood culture x2: pending Post-menopause 10/21/2011 03/18/2015 Unspecified aftercare 05/26/20112011 Excessive or frequent menstruation 01/05/2007 10/06/2011 Abdominal pain, chronic, right upper quadrant 10/06/2011 Weight gain 10/19/2017 documented as of this encounter (statuses as of 02/03/2023) [facility]2016 History of Past illness Narrative* Problem Noted Date Diagnosed Date Resolved Date Postmenopausal HRT (hormone replacement therapy) 12/13/2015 11/09/2016 Encounter for screening mamm ogram for malignant neoplasm of breast 12/12/2015 11/09/2016 Delayed emergence from anesthesia 09/27/2014 10/19/2017 On home oxygen therapy 09/27/201412/12 Ovarian cyst 09/24/2014 03/18/2015 Marital conflict 08/30/2013 07/11/2014 Adrenal disorder 05/24/2013 07/11/2014 URI (upper respiratory infection) 05/14/2013 07/11/2014 Overview: -cough , fever, headache, nasal congestion and muscle ache started last Wednesday. -sick contact with her son and her mother who had the same symptoms. -completed 5 days course of Tamiflu. - not likely bacterial. - Likely viral infection Plan: -viral respiratory panel. -Tylenol PRN. Pneumonia 05/14/2013 07/11/2014 Overview: -Atypical pneumonia vs viral pneumonia -She did NOT improve after the 5 days course of Tamiflu. -Her CXR at the OSH showed interstitial infiltrated. -on levofloxacin since 05/11 - Afebrile, no leukocytosis Plan: -CXR: edema versus atypical infection, clinically patient not looking like infection or edema -Wean her for O2 as tolerated. -Stop levofloxacin -Blood culture x2: pending Post-menopause 10/21/2011 03/18/2015 Unspecified aftercare 05/26/20112011 Excessive or frequent menstruation 01/05/2007 10/06/2011 Abdominal pain, chronic, right upper quadrant 10/06/2011 Weight gain 10/19/2017 documented as of this encounter (statuses as of 02/19/2023) [facility]2016 History of Past illness Narrative* Problem Noted Date Diagnosed Date Resolved Date Postmenopausal HRT (hormone replacement therapy) 12/13/2015 11/09/2016 Encounter for screening mamm ogram for malignant neoplasm of breast 12/12/2015 11/09/2016 Delayed emergence from anesthesia 09/27/2014 10/19/2017 On home oxygen therapy 09/27/201412/12 Ovarian cyst 09/24/2014 03/18/2015 Marital conflict 08/30/2013 07/11/2014 Adrenal disorder 05/24/2013 07/11/2014 URI (upper respiratory infection) 05/14/2013 07/11/2014 Overview: -cough , fever, headache, nasal congestion and muscle ache started last Wednesday. -sick contact with her son and her mother who had the same symptoms. -completed 5 days course of Tamiflu. - not likely bacterial. - Likely viral infection Plan: -viral respiratory panel. -Tylenol PRN. Pneumonia 05/14/2013 07/11/2014 Overview: -Atypical pneumonia vs viral pneumonia -She did NOT improve after the 5 days course of Tamiflu. -Her CXR at the OSH showed interstitial infiltrated. -on levofloxacin since 05/11 - Afebrile, no leukocytosis Plan: -CXR: edema versus atypical infection, clinically patient not looking like infection or edema -Wean her for O2 as tolerated. -Stop levofloxacin -Blood culture x2: pending Post-menopause 10/21/2011 03/18/2015 Unspecified aftercare 05/26/20112011 Excessive or frequent menstruation 01/05/2007 10/06/2011 Abdominal pain, chronic, right upper quadrant 10/06/2011 Weight gain 10/19/2017 documented as of this encounter (statuses as of 02/28/2023) [facility]2016 History of Past illness Narrative* Problem Noted Date Diagnosed Date Resolved Date Postmenopausal HRT (hormone replacement therapy) 12/13/2015 11/09/2016 Encounter for screening mamm ogram for malignant neoplasm of breast 12/12/2015 11/09/2016 Delayed emergence from anesthesia 09/27/2014 10/19/2017 On home oxygen therapy 09/27/201412/12 Ovarian cyst 09/24/2014 03/18/2015 Marital conflict 08/30/2013 07/11/2014 Adrenal disorder 05/24/2013 07/11/2014 URI (upper respiratory infection) 05/14/2013 07/11/2014 Overview: -cough , fever, headache, nasal congestion and muscle ache started last Wednesday. -sick contact with her son and her mother who had the same symptoms. -completed 5 days course of Tamiflu. - not likely bacterial. - Likely viral infection Plan: -viral respiratory panel. -Tylenol PRN. Pneumonia 05/14/2013 07/11/2014 Overview: -Atypical pneumonia vs viral pneumonia -She did NOT improve after the 5 days course of Tamiflu. -Her CXR at the OSH showed interstitial infiltrated. -on levofloxacin since 05/11 - Afebrile, no leukocytosis Plan: -CXR: edema versus atypical infection, clinically patient not looking like infection or edema -Wean her for O2 as tolerated. -Stop levofloxacin -Blood culture x2: pending Post-menopause 10/21/2011 03/18/2015 Unspecified aftercare 05/26/20112011 Excessive or frequent menstruation 01/05/2007 10/06/2011 Abdominal pain, chronic, right upper quadrant 10/06/2011 Weight gain 10/19/2017 documented as of this encounter (statuses as of 03/26/2023) [facility]* Diagnosis Encounter for screening mammogram for breast cancer [facility] Diagnosis Menopausal and perimenopausal disorder- Primary Unspecified menopausal and postmenopausal disorder [facility] Diagnosis Postablative hypothyroidism- Primary Other postablative hypothyroidism [facility] Diagnosis Hypothyroidism, acquired- Primary Unspecified hypothyroidism [facility]* Diagnosis Anxiety with depression- Primary [facility]* Diagnosis Impaired glucose tolerance Impaired glucose tolerance test [facility]* Diagnosis Attention deficit hyperactivity disorder (ADHD), combined type- Primary Anxiety with depression Postablative hypothyroidism Other postablative hypothyroidism [facility]* Diagnosis Hypothyroidism, acquired Unspecified hypothyroidism [facility]* Diagnosis Menopausal and perimenopausal disorder- Primary Unspecified menopausal and postmenopausal disorder [facility] Diagnosis Encounter for gynecological examination (general) (routine) without abnormal findings- Primary Encounter for screening mammogram for breast cancer Obesity, Class II, BMI 35-39.9 Obesity, unspecified documented in this encounter [facility]* Diagnosis Hypothyroidism, acquired- Primary Unspecified hypothyroidism documented in this encounter [facility]* Diagnosis LLQ pain- Primary Abdominal pain, left lower quadrant Screening breast examination Breast screening, unspecified Need for hepatitis C screening test Special screening examination for other specified viral diseases Screening for HIV (human immunodeficiency virus) Special screening examination for other specified viral diseases Lumbar radiculopathy Thoracic or lumbosacral neuritis or radiculitis, unspecified Hyperglycemia Other abnormal glucose Left lower quadrant abdominal pain [facility] Diagnosis Renal cyst- Primary Unspecified congenital cystic kidney disease Pelvic pain documented in this encounter [facility]* Diagnosis Left lower quadrant abdominal pain [facility] Diagnosis Pelvic pain [facility] in this encounter [facility]* Diagnosis Thickened endometrium- Primary Nonspecific (abnormal) findings on radiological and other examination of genitourinary organs [facility] Diagnosis Menopausal and perimenopausal disorder- Primary Unspecified menopausal and postmenopausal disorder [facility] Diagnosis Attention deficit hyperactivity disorder (ADHD), combined type [facility]* Diagnosis Voice hoarseness- Primary Dysphonia [facility] Diagnosis Menopausal and perimenopausal disorder- Primary Unspecified menopausal and postmenopausal disorder Mood change Unspecified episodic mood disorder [id number] rapid metabolizer (HCC) Not currently working due to disabled status due to hormone deficiency [facility] Diagnosis Screening for colon cancer Special screening for malignant neoplasms, colon [facility] Diagnosis Symptomatic menopausal or female climacteric states- Primary Mood change Unspecified episodic mood disorder Edema, unspecified type [id number] rapid metabolizer (HCC) Not currently working due to disabled status due to hormone deficiency [facility] Diagnosis Symptomatic menopausal or female climacteric states- Primary [facility]* Diagnosis Fatigue, unspecified type- Primary ANDRESSA (obstructive sleep apnea) Obstructive sleep apnea (adult) (pediatric) Postablative hypothyroidism Other postablative hypothyroidism Impaired glucose tolerance Impaired glucose tolerance test Hyperglycemia Other abnormal glucose Tobacco use Tobacco use disorder documented in this encounter [facility] note* Diagnosis Depression, unspecified depression type- Primary Fatigue, unspecified type documented in this encounter [facility] note* Diagnosis Tonsillitis- Primary Acute tonsillitis documented in this encounter [facility] note* Diagnosis Pharyngitis, unspecified etiology- Primary Fatigue, unspecified type Hair loss Alopecia, unspecified documented in this encounter [facility] note* Diagnosis Leukocytosis, unspecified type- Primary documented in this encounter [facility] note* Diagnosis Symptomatic menopausal or female climacteric states- Primary documented in this encounter [facility] note* Diagnosis Hypothyroidism, acquired- Primary Unspecified hypothyroidism Screening for lung cancer ANDRESSA (obstructive sleep apnea) Obstructive sleep apnea (adult) (pediatric) Postablative hypothyroidism Other postablative hypothyroidism documented in this encounter [facility] note* Diagnosis Nocturnal oxygen desaturation- Primary Idiopathic sleep related nonobstructive alveolar hypoventilation ANDRESSA (obstructive sleep apnea) Obstructive sleep apnea (adult) (pediatric) Upper airway resistance syndrome Other organic sleep disorders documented in this encounter [facility] note* Diagnosis Hypothyroidism, acquired Unspecified hypothyroidism documented in this encounter [facility] note* Diagnosis Symptomatic menopausal or female climacteric states [id number] rapid metabolizer (HCC) documented in this encounter [facility] note* Diagnosis Encounter for screening mammogram for breast cancer documented in this encounter [facility] note* Diagnosis Symptomatic menopausal or female climacteric states- Primary [id number] rapid metabolizer (HCC) Heterozygous factor V Leiden mutation (HCC) Primary hypercoagulable state Not currently working due to disabled status due to hormone deficiency documented in this encounter [facility] [place] for referral (narrative)* Diagnostic Procedure Only (Routine) - Pending Review Specialty Diagnoses / Procedures Referred By Precious courtney Referred To Contact [facility] Diagnoses Encounter for screening mammogram for breast cancer Procedures BELKIS SCREENING SCREENING MAMMOGRAPHY BI 2-VIEW BREAST INC CAD Freddy Dee MD [address] [place] [address] [facility] [address] [facility] [place] [address] Referral ID Status Reason Start Date Expiration Date Visits Requested Visits Authorized [id number] Pending Review Auto-Generat ed Referral 07/16/2021 08/15/2022 1 1 [facility] for referral (narrative)* Diagnostic Procedure Only (Routine) - Pending Review Specialty Diagnoses / Procedures Referred By Contac t Referred To Contact [facility] Diagnoses Encounter for screening mammogram for breast cancer Procedures BELKIS SCREENING SCREENING MAMMOGRAPHY BI 2-VIEW BREAST INC Ofe Padilla APRN.CNP [address] [place] [address] [facility] [address] [place] [address] Referral ID Status Reason Start Date Expiration Date Visits Requested Visits Authorized [id number] Pending Review Auto-Generat ed Referral 12/23/2021 01/22/2023 1 1 [facility] [place] for referral (narrative)* Diagnostic Procedure Only (Routine) - Pending Review Specialty Diagnoses / Procedures Referred By Contac t Referred To Contact US IMAGING Diagnoses Pelvic pain Procedures US FEMALE PELVIS TRANSVAG US TRANSVAGINAL Freddy Dee MD [address] [place] [address] [facility] Referral ID Status Reason Start Date Expiration Date Visits Requested Visits Authorized [id number] Pending Review Auto-Generat ed Referral 01/01/2022 01/31/2023 1 1 * Diagnostic Procedure Only (Routine) - Pending Review Specialty Diagnoses / Procedures Referred By Contac t Referred To Contact US IMAGING Diagnoses Renal cyst Procedures US KIDNEY/BLADDER US RETROPERITONEAL REAL TIME W/IMAGE COMPLETE Freddy Dee MD [address] [place] [address] [facility] Referral ID Status Reason Start Date Expiration Date Visits Requested Visits Authorized [id number] Pending Review Auto-Generat ed Referral 07/01/2022 01/31/2023 1 1 [facility] [place] for referral (narrative)* Diagnostic Procedure Only (Routine) - Closed Specialty Diagnoses / Procedures Referred By Precious courtney Referred To Contact US IMAGING Diagnoses Pelvic pain Procedures US FEMALE PELVIS TRANSVAG US TRANSVAGINAL Freddy Dee MD [address] [place] [address] Us Imaging Referral ID Status Reason Start Date Expiration Date V isits Requested Visits Authorized [id number] Closed Auto-Generate d Referral 01/01/2022 01/31/2023 1 1 [facility] [place] for referral (narrative)* Outpatient Procedure (Routine) - Pending Review Specialty Diagnoses / Procedures Referred By Precious courtney Referred To Contact [facility] Diagnoses Screening for colon cancer Procedures COLONOSCOPY SCREENING COLONOSCOPY FLX DX W/COLLJ SPEC WHEN PFRMD Freddy Dee MD [address] [place] [address] [facility] [address] [place] [address] Referral ID Status Reason Start Date Expiration Date Visits Requested Visits Authorized [id number] Pending Review Auto-Generat ed Referral 03/04/2022 03/04/2023 1 1 [facility] [place] for referral (narrative)* Diagnostic Procedure Only (Routine) - Closed Specialty Diagnoses / Procedures Referred By Precious courtney Referred To Contact [facility] Diagnoses Encounter for screening mammogram for breast cancer Procedures BELKIS SCREENING SCREENING MAMMOGRAPHY BI 2-VIEW BREAST INC CAD Freddy Dee MD [address] [place] [address] [facility] [address] [facility] [place] [address] Referral ID Status Reason Start Date Expiration Date V isits Requested Visits Authorized [id number] Closed Auto-Generate d Referral 07/16/2021 08/15/2022 1 1 [facility] [place] for visit Narrative* Diagnostic Procedure Only (Routine) - Closed Specialty Diagnoses / Procedures Referred By Precious courtney Referred To Contact [facility] Diagnoses Encounter for screening mammogram for breast cancer Procedures BELKIS SCREENING SCREENING MAMMOGRAPHY BI 2-VIEW BREAST INC CAD Freddy Dee MD [address] [place] [address] [facility] [address] [place] [address] Referral ID Status Reason Start Date Expiration Date V isits Requested Visits Authorized [id number] Closed Auto-Generate d Referral 07/16/2021 08/15/2022 1 1 [facility] Summary Purpose Family History No Family History Records Found Grandmother Name Dates Details Family history of Rheumatoid lung(714.81, M05.10) Status:Active aunt Name Dates Details Family history of Rheumatoid lung(714.81, M05.10) Status:Active cousin Name Dates Details Family history of systemic l upus erythematosus(V19.4, Z82.69) Status:Active Mother Name Dates Details Family history of type 2 regi betes mellitus(V18.0, Z83.3) Status:Active Father Name Dates Details Family history of myocardial infarction(V17.3, Z82.49) Status:Active Family history of S/P CABG ( coronary artery bypass graft)(V45.81, Z95.1) Status:Active Family history of hypertensi on(V17.49, Z82.49) Status:Active Advance Directives No Advanced Directives Records FoundDocuments on File Type Date Recorded 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 Advance Directive(s) 06/05/2015 8:15 AM Documents on File Type Date Recorded 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 Advance Directive(s) 06/05/2015 8:15 AM Reason for Referral Specialty Diagnoses / Procedures Referred By Precious courtney Referred To Contact CT IMAGING Diagnoses Left lower quadrant abdominal pain Procedures CT ABD/PEL W IVCON CT ABD & PELVIS W/CONTRAST Freddy Dee MD [address] [place] [address] Ct Imaging Referral ID Status Reason Start Date Expiration Date Visits Requested Visits Authorized [id number] Additional Clinical Info Needed Auto-Generat ed Referral 12/31/2021 01/30/2023 1 1 Specialty Diagnoses / Procedures Referred By Contac t Referred To Contact [facility] Diagnoses Screening breast examination Procedures BELKIS SCREENING SCREENING MAMMOGRAPHY BI 2-VIEW BREAST INC CAD Freddy Dee MD [address] [place] [address] [facility] [address] [place] [address] Referral ID Status Reason Start Date Expiration Date Visits Requested Visits Authorized [id number] Pending Review Auto-Generat ed Referral 12/31/2021 01/30/2023 1 1 Referral ID Status Reason Start Date Expiration Date V isits Requested Visits Authorized [id number] Closed Auto-Generat ed Referral Patient Cleared - Admin/Chairm an/Director advise to proceed 12/31/2021 01/30/2023 2 2 Specialty Diagnoses / Procedures Referred By Contac t Referred To Contact Gynecology Diagnoses Thickened endometrium Procedures CONSULT TO GYNECOLOGY OFFICE/OUTPATIENT [facility] MDM 60-74 MINUTES Freddy Dee MD [address] [place] [address] Referral ID Status Reason Start Date Expiration Date Visits Requested Visits Authorized [id number] Authorized PCP Requested Referral Auto-Generate d Referral 01/05/2022 01/05/2023 1 1 Specialty Diagnoses / Procedures Referred By Contac t Referred To Contact Ent - Otolaryngology Diagnoses Voice hoarseness Procedures CONSULT TO ENT OFFICE/OUTPATIENT [facility] MDM 60-74 MINUTES Dona Munoz APRN.CNP [address] [place] [address] Referral ID Status Reason Start Date Expiration Date Visits Requested Visits Authorized [id number] Authorized PCP Requested Referral 02/20/2023 1 1 Specialty Diagnoses / Procedures Referred By Contac t Referred To Contact Diagnoses Tobacco use Procedures CONSULT LUNG CANCER SCREENING [facility]INIC Freddy Dee MD [address] [place] [address] Referral ID Status Reason Start Date Expiration Date Visits Requested Visits Authorized [id number] Ref Not Required PCP Requested Referral 05/21/2022 08/19/2022 1 1 Specialty Diagnoses / Procedures Referred By Contevan t Referred To Contact Diagnoses Hypothyroidism, acquired Freddy Dee MD [address] [place] [address] Referral ID Status Reason Start Date Expiration Date Visits Re quested Visits Authorized [id number] Closed 1 1 Additional Source Comments INFORMATION SOURCE (unrecogn ized section and content) DATE CREATED AUTHOR AUTHOR'S ORGANIZ ATION 2017 [facility] DATE CREATED AUTHOR AUTHOR'S ORGANIZ ATION 06/15/2018 [facility] DATE CREATED AUTHOR AUTHOR'S ORGANIZ ATION 06/28/2018 [facility] DATE CREATED AUTHOR AUTHOR'S ORGANIZ ATION 12/07/2018 [employer] DATE CREATED AUTHOR AUTHOR'S ORGANIZ ATION 12/10/2018 [facility] DATE CREATED AUTHOR AUTHOR'S ORGANIZ ATION 05/03/2019 [facility] DATE CREATED AUTHOR AUTHOR'S ORGANIZ ATION 05/26/2023 [facility] Source Comments (unrecognize d section and content) In the event this informatio n is protected by the Federal Confidentiality of Alcohol and Drug Abuse Patient Records regulations: The Federal rules restrict any use of the information to criminally investigate or prosecute any alcohol or drug abuse patient.[facility] the event this information is protected by the Federal Confidentiality of Alcohol and Drug Abuse Patient Records regulations: The Federal rules restrict any use of the information to criminally investigate or prosecute any alcohol or drug abuse patient.[facility] the event this information is protected by the Federal Confidentiality of Alcohol and Drug Abuse Patient Records regulations: The Federal rules restrict any use of the information to criminally investigate or prosecute any alcohol or drug abuse patient.[facility] the event this information is protected by the Federal Confidentiality of Alcohol and Drug Abuse Patient Records regulations: The Federal rules restrict any use of the information to criminally investigate or prosecute any alcohol or drug abuse patient.[facility] the event this information is protected by the Federal Confidentiality of Alcohol and Drug Abuse Patient Records regulations: The Federal rules restrict any use of the information to criminally investigate or prosecute any alcohol or drug abuse patient.[facility] the event this information is protected by the Federal Confidentiality of Alcohol and Drug Abuse Patient Records regulations: The Federal rules restrict any use of the information to criminally investigate or prosecute any alcohol or drug abuse patient.[facility] the event this information is protected by the Federal Confidentiality of Alcohol and Drug Abuse Patient Records regulations: The Federal rules restrict any use of the information to criminally investigate or prosecute any alcohol or drug abuse patient.[facility] the event this information is protected by the Federal Confidentiality of Alcohol and Drug Abuse Patient Records regulations: The Federal rules restrict any use of the information to criminally investigate or prosecute any alcohol or drug abuse patient.[facility] the event this information is protected by the Federal Confidentiality of Alcohol and Drug Abuse Patient Records regulations: The Federal rules restrict any use of the information to criminally investigate or prosecute any alcohol or drug abuse patient.[facility] the event this information is protected by the Federal Confidentiality of Alcohol and Drug Abuse Patient Records regulations: The Federal rules restrict any use of the information to criminally investigate or prosecute any alcohol or drug abuse patient.[facility] the event this information is protected by the Federal Confidentiality of Alcohol and Drug Abuse Patient Records regulations: The Federal rules restrict any use of the information to criminally investigate or prosecute any alcohol or drug abuse patient.[facility] the event this information is protected by the Federal Confidentiality of Alcohol and Drug Abuse Patient Records regulations: The Federal rules restrict any use of the information to criminally investigate or prosecute any alcohol or drug abuse patient.[facility] the event this information is protected by the Federal Confidentiality of Alcohol and Drug Abuse Patient Records regulations: The Federal rules restrict any use of the information to criminally investigate or prosecute any alcohol or drug abuse patient.[facility] the event this information is protected by the Federal Confidentiality of Alcohol and Drug Abuse Patient Records regulations: The Federal rules restrict any use of the information to criminally investigate or prosecute any alcohol or drug abuse patient.[facility] the event this information is protected by the Federal Confidentiality of Alcohol and Drug Abuse Patient Records regulations: The Federal rules restrict any use of the information to criminally investigate or prosecute any alcohol or drug abuse patient.[facility] the event this information is protected by the Federal Confidentiality of Alcohol and Drug Abuse Patient Records regulations: The Federal rules restrict any use of the information to criminally investigate or prosecute any alcohol or drug abuse patient.[facility] the event this information is protected by the Federal Confidentiality of Alcohol and Drug Abuse Patient Records regulations: The Federal rules restrict any use of the information to criminally investigate or prosecute any alcohol or drug abuse patient.[facility] the event this information is protected by the Federal Confidentiality of Alcohol and Drug Abuse Patient Records regulations: The Federal rules restrict any use of the information to criminally investigate or prosecute any alcohol or drug abuse patient.[facility] the event this information is protected by the Federal Confidentiality of Alcohol and Drug Abuse Patient Records regulations: The Federal rules restrict any use of the information to criminally investigate or prosecute any alcohol or drug abuse patient.[facility] the event this information is protected by the Federal Confidentiality of Alcohol and Drug Abuse Patient Records regulations: The Federal rules restrict any use of the information to criminally investigate or prosecute any alcohol or drug abuse patient.[facility] the event this information is protected by the Federal Confidentiality of Alcohol and Drug Abuse Patient Records regulations: The Federal rules restrict any use of the information to criminally investigate or prosecute any alcohol or drug abuse patient.[facility] the event this information is protected by the Federal Confidentiality of Alcohol and Drug Abuse Patient Records regulations: The Federal rules restrict any use of the information to criminally investigate or prosecute any alcohol or drug abuse patient.[facility] the event this information is protected by the Federal Confidentiality of Alcohol and Drug Abuse Patient Records regulations: The Federal rules restrict any use of the information to criminally investigate or prosecute any alcohol or drug abuse patient.[facility] the event this information is protected by the Federal Confidentiality of Alcohol and Drug Abuse Patient Records regulations: The Federal rules restrict any use of the information to criminally investigate or prosecute any alcohol or drug abuse patient.[facility] the event this information is protected by the Federal Confidentiality of Alcohol and Drug Abuse Patient Records regulations: The Federal rules restrict any use of the information to criminally investigate or prosecute any alcohol or drug abuse patient.[facility] the event this information is protected by the Federal Confidentiality of Alcohol and Drug Abuse Patient Records regulations: The Federal rules restrict any use of the information to criminally investigate or prosecute any alcohol or drug abuse patient.[facility] the event this information is protected by the Federal Confidentiality of Alcohol and Drug Abuse Patient Records regulations: The Federal rules restrict any use of the information to criminally investigate or prosecute any alcohol or drug abuse patient.[facility] the event this information is protected by the Federal Confidentiality of Alcohol and Drug Abuse Patient Records regulations: The Federal rules restrict any use of the information to criminally investigate or prosecute any alcohol or drug abuse patient.[facility] the event this information is protected by the Federal Confidentiality of Alcohol and Drug Abuse Patient Records regulations: The Federal rules restrict any use of the information to criminally investigate or prosecute any alcohol or drug abuse patient.[facility] the event this information is protected by the Federal Confidentiality of Alcohol and Drug Abuse Patient Records regulations: The Federal rules restrict any use of the information to criminally investigate or prosecute any alcohol or drug abuse patient.[facility] the event this information is protected by the Federal Confidentiality of Alcohol and Drug Abuse Patient Records regulations: The Federal rules restrict any use of the information to criminally investigate or prosecute any alcohol or drug abuse patient.[facility] the event this information is protected by the Federal Confidentiality of Alcohol and Drug Abuse Patient Records regulations: The Federal rules restrict any use of the information to criminally investigate or prosecute any alcohol or drug abuse patient.[facility] the event this information is protected by the Federal Confidentiality of Alcohol and Drug Abuse Patient Records regulations: The Federal rules restrict any use of the information to criminally investigate or prosecute any alcohol or drug abuse patient.[facility] the event this information is protected by the Federal Confidentiality of Alcohol and Drug Abuse Patient Records regulations: The Federal rules restrict any use of the information to criminally investigate or prosecute any alcohol or drug abuse patient.[facility] the event this information is protected by the Federal Confidentiality of Alcohol and Drug Abuse Patient Records regulations: The Federal rules restrict any use of the information to criminally investigate or prosecute any alcohol or drug abuse patient.[facility] the event this information is protected by the Federal Confidentiality of Alcohol and Drug Abuse Patient Records regulations: The Federal rules restrict any use of the information to criminally investigate or prosecute any alcohol or drug abuse patient.[facility]In the event this information is protected by the Federal Confidentiality of Alcohol and Drug Abuse Patient Records regulations: The Federal rules restrict any use of the information to criminally investigate or prosecute any alcohol or drug abuse patient.[facility] the event this information is protected by the Federal Confidentiality of Alcohol and Drug Abuse Patient Records regulations: The Federal rules restrict any use of the information to criminally investigate or prosecute any alcohol or drug abuse patient.[facility] the event this information is protected by the Federal Confidentiality of Alcohol and Drug Abuse Patient Records regulations: The Federal rules restrict any use of the information to criminally investigate or prosecute any alcohol or drug abuse patient.[facility]In the event this information is protected by the Federal Confidentiality of Alcohol and Drug Abuse Patient Records regulations: The Federal rules restrict any use of the information to criminally investigate or prosecute any alcohol or drug abuse patient.[facility]In the event this information is protected by the Federal Confidentiality of Alcohol and Drug Abuse Patient Records regulations: The Federal rules restrict any use of the information to criminally investigate or prosecute any alcohol or drug abuse patient.[facility]In the event this information is protected by the Federal Confidentiality of Alcohol and Drug Abuse Patient Records regulations: The Federal rules restrict any use of the information to criminally investigate or prosecute any alcohol or drug abuse patient.[facility]In the event this information is protected by the Federal Confidentiality of Alcohol and Drug Abuse Patient Records regulations: The Federal rules restrict any use of the information to criminally investigate or prosecute any alcohol or drug abuse patient.[facility]In the event this information is protected by the Federal Confidentiality of Alcohol and Drug Abuse Patient Records regulations: The Federal rules restrict any use of the information to criminally investigate or prosecute any alcohol or drug abuse patient.[facility]In the event this information is protected by the Federal Confidentiality of Alcohol and Drug Abuse Patient Records regulations: The Federal rules restrict any use of the information to criminally investigate or prosecute any alcohol or drug abuse patient.[facility]In the event this information is protected by the Federal Confidentiality of Alcohol and Drug Abuse Patient Records regulations: The Federal rules restrict any use of the information to criminally investigate or prosecute any alcohol or drug abuse patient.[facility]In the event this information is protected by the Federal Confidentiality of Alcohol and Drug Abuse Patient Records regulations: The Federal rules restrict any use of the information to criminally investigate or prosecute any alcohol or drug abuse patient.[facility]In the event this information is protected by the Federal Confidentiality of Alcohol and Drug Abuse Patient Records regulations: The Federal rules restrict any use of the information to criminally investigate or prosecute any alcohol or drug abuse patient.[facility]In the event this information is protected by the Federal Confidentiality of Alcohol and Drug Abuse Patient Records regulations: The Federal rules restrict any use of the information to criminally investigate or prosecute any alcohol or drug abuse patient.[facility]In the event this information is protected by the Federal Confidentiality of Alcohol and Drug Abuse Patient Records regulations: The Federal rules restrict any use of the information to criminally investigate or prosecute any alcohol or drug abuse patient.[facility] Care Teams (unrecognized sec tion and content) Extrusion Manager Relationship Specialty Start Date End Date Freddy Dee MD [facility] [place] [address] PCP - General 06/02/13 Extrusion Manager Relationship Specialty Start Date End Date Freddy Dee MD [address] [place] [address] PCP - General 06/02/13 Extrusion Manager Relationship Specialty Start Date End Date Freddy Dee MD [facility] [place] [address] PCP - General 06/02/13 Extrusion Manager Relationship Specialty Start Date End Date Freddy Dee MD [facility] [place] [address] PCP - General 06/02/13 Extrusion Manager Relationship Specialty Start Date End Date Freddy Dee MD [address] [place] [address] PCP - General 06/02/13 Extrusion Manager Relationship Specialty Start Date End Date Freddy Dee MD [address] [facility] [address] PCP - General 06/02/13 Extrusion Manager Relationship Specialty Start Date End Date Freddy Dee MD [address] [place] [address] PCP - General 06/02/13 Extrusion Manager Relationship Specialty Start Date End Date Freddy Dee MD [address] [place] [address] PCP - General 06/02/13 Extrusion Manager Relationship Specialty Start Date End Date Freddy Dee MD [address] [place] [address] PCP - General 06/02/13 Extrusion Manager Relationship Specialty Start Date End Date Freddy Dee MD [address] [place] [address] PCP - General 06/02/13 Extrusion Manager Relationship Specialty Start Date End Date Freddy Dee MD [address] [place] [address] PCP - General 06/02/13 Extrusion Manager Relationship Specialty Start Date End Date Freddy Dee MD [address] [facility] [place] [address] PCP - General 06/02/13 Extrusion Manager Relationship Specialty Start Date End Date Freddy Dee MD [address] [place] [address] PCP - General 06/02/13 Extrusion Manager Relationship Specialty Start Date End Date Freddy Dee MD [address] [place] [address] PCP - General 06/02/13 Extrusion Manager Relationship Specialty Start Date End Date Freddy Dee MD [address] [place] [address] PCP - General 06/02/13 Extrusion Manager Relationship Specialty Start Date End Date Freddy Dee MD [address] [place] [address] PCP - General 06/02/13 Extrusion Manager Relationship Specialty Start Date End Date Freddy Dee MD [address] [place] [address] PCP - General 06/02/13 Extrusion Manager Relationship Specialty Start Date End Date Freddy Dee MD [address] [place] [address] PCP - General 06/02/13 Extrusion Manager Relationship Specialty Start Date End Date Freddy Dee MD [address] [place] [address] PCP - General 06/02/13 Extrusion Manager Relationship Specialty Start Date End Date Freddy Dee MD [address] [place] [address] PCP - General 06/02/13 Extrusion Manager Relationship Specialty Start Date End Date Freddy Dee MD [address] [place] [address] PCP - General 06/02/13 Extrusion Manager Relationship Specialty Start Date End Date Freddy Dee MD [address] [place] [address] PCP - General 06/02/13 Extrusion Manager Relationship Specialty Start Date End Date Freddy Dee MD [address] [place] [address] PCP - General 06/02/13 Extrusion Manager Relationship Specialty Start Date End Date Freddy Dee MD [address] [place], [place] [address] PCP - General 06/02/13 Extrusion Manager Relationship Specialty Start Date End Date Freddy Dee MD [address] [place], [place] [address] PCP - General 06/02/13 Extrusion Manager Relationship Specialty Start Date End Date Freddy Dee MD [address] [place], [place] [id number] PCP General 06/02/13 Extrusion Manager Relationship Specialty Start Date End Date Freddy Dee MD [address] [place], [place] [id number] PCP General 06/02/13 Extrusion Manager Relationship Specialty Start Date End Date Freddy Dee MD [address] [place], [place] [address] [facility] General 06/02/13 Reason for Visit (unrecogniz ed section and content) Specialty Diagnoses / Procedures Referred By Precious t Referred To Contact CT IMAGING Diagnoses Left lower quadrant abdominal pain Procedures CT ABD/PEL W IVCON CT ABD & PELVIS W/CONTRAST Freddy Dee MD [address] [place] [address] Ct Imaging Referral ID Status Reason Start Date Expiration Date V isits Requested Visits Authorized [id number] Closed Auto-Generat ed Referral Patient Cleared - Admin/Chairm an/Director advise to proceed 12/31/2021 01/30/2023 2 2 Reason Comments F/U on HT Reason Comments Acute Visit Reason Comments Insurance Authorization [employer] Reason Onset Date Comments Refill Request 10/03/2021 Reason Comments Patient Question Orders Reason Comments Follow Up Reason Onset Date Comments Refill Request 12/15/2021 Reason Comments Well Woman Reason Comments Insurance Authorization Reason Comments Abdominal Pain Reason Comments Results Reason Comments Radiology US Specialty Diagnoses / Procedures Referred By Contac t Referred To Contact US IMAGING Diagnoses Pelvic pain Procedures US FEMALE PELVIS TRANSVAG US TRANSVAGINAL Freddy Dee MD [address] [place] [address] Us Imaging Referral ID Status Reason Start Date Expiration Date V isits Requested Visits Authorized [id number] Closed Auto-Generate d Referral 01/01/2022 01/31/2023 1 1 Reason Comments Results Reason Onset Date Comments Refill Request 02/02/2022 Reason Comments Throat Problem Reason Comments Hoarseness X7 days Reason Comments Patient Update Reason Comments Acute Visit Reason Comments Sore Throat Reason Comments Erroneous encounter-disregard Reason Comments Dizziness Reason Comments Patient Question Reason Comments Release Of Medical Records Reason Onset Date Comments Refill Request 01/08/2023 Reason Comments Prior Auth Reason Comments Insurance Authorization estrogel FOR RECORDS PERTAINING TO PATIENTS WHO ARE OR HAVE BEEN ENROLLED IN A CHEMICAL DEPENDENCY/SUBSTANCEABUSE PROGRAM, SOME INFORMATION MAY BE OMITTED. This clinical summary was aggregated from multiple sources. Caution should be exercised in using it in the provision of clinical care. This summary normalizes information from multiple sources, and as a consequence, information in this document may materially change the coding, format and clinical context of patient data. In addition, data may be omitted in some cases. CLINICAL DECISIONS SHOULD BE BASED ON THE PRIMARY CLINICAL RECORDS. [employer] provides no warranty or guarantee of the accuracy or completeness of information in this document.
[2023-05-28 00:15] LABS: Anion Gap 4 (5-15); BUN 8 mg/dL (7-18); BUN/Creat Ratio 10.7 RATIO (10-20); Calcium,Total 9.4 mg/dL (8.5-10.1); Chloride 108 mmol/L (98-107); Creatinine, Serum 0.75 mg/dL (0.55-1.02); EST Glomerular Filtration Rate 85 mL/min (>60); Est Glom Filt Rate - Afr Amer 103 mL/min (>60); Estimated Creatinine Clearance 88.06 ml/min; Glucose 117 mg/dL (74-106); Magnesium 2.2 mg/dL (1.6-2.6); Potassium 3.7 mmol/L (3.5-5.1); Sodium Level 139 mmol/L (136-145); Thyroid Stim Hormone (TSH) 2.58 uIU/mL (0.358-3.74)
[2023-05-28 00:32] VITALS: BP 142/79; PULSE 90; RESP 16; O2SAT 97
== END 2023-05-28 00:33 | disposition home or self-care (01) ==
PROVIDERS: Emergency Provider Emergency Medicine; PCP Family Medicine; Visit Provider Emergency Medicine
DX: R25.2 Cramp and spasm (principal); E03.9 Hypothyroidism, unspecified; R20.2 Paresthesia of skin; R73.03 Prediabetes; N95.1 Menopausal and female climacteric states; I10 Essential (primary) hypertension; K21.9 Gastro-esophageal reflux disease without esophagitis; E66.9 Obesity, unspecified; F17.210 Nicotine dependence, cigarettes, uncomplicated
CPT/HCPCS: 80048; 83735; 84443; 85025; 99282

== ENCOUNTER 2024-02-23 19:47 | Emergency (ER) | payer MEDICAID, SELFPAY ==
[2024-02-23 19:50] VITALS: BP 164/101; PULSE 116; RESP 18; TEMP 36.7; O2SAT 94; BMI 39.5
--- NOTE | 2024-02-23 19:55 | RAD_ITS ---
STUDY: X-RAY CHEST REASON FOR EXAM: Female, 58 years old. Chest pain TECHNIQUE: Single AP portable view of the chest. COMPARISON: August 16, 2022 FINDINGS: There are mild lower lung increased opacities. There is no demonstrated pleural abnormality. Normal size heart. Normal mediastinum and ashley. Normal visualized pulmonary arteries. Normal visualized aortic arch and descending thoracic aorta. Normal visualized thoracic spine. Normal visualized ribs, clavicles, and shoulders. There is no demonstrated abnormality of the visualized soft tissue structures of the upper abdomen. RAD/Chest 1 View (Portable) IMPRESSION: Mild lower lung edema or atelectasis. Electronically Signed: Paulo Trejo MD at 21:30 EDT ,
--- NOTE | 2024-02-23 19:55 | EKG12_ITS ---
Test Reason : PALPS Blood Pressure : */* mmHG Vent. Rate : 112 BPM Atrial Rate : 112 BPM P-R Int : 148 ms QRS Dur : 80 ms QT Int : 336 ms P-R-T Axes : 43 60 34 degrees QTcB Int : 458 [address] tachycardia Nonspecific ST abnormality Abnormal ECG Confirmed by ARYA HARRIS, JUAN ([id number]), editor managing director DAVIDSON HENDRICKS ([id number]) on 02/25/2024 8:18:32 AM Referred By: RONNY Confirmed By: JUAN KOENIG MD
[2024-02-23 20:14] LABS: Absolute Lymphocyte Count 3.06 X10^3/uL (0.83-4.51); Absolute Neutrophil Count 10.5 X10^3/uL (2.0-7.7); Basophil# 0.07 X10^3/uL; Basophil% 0.5 % (0-1); Eosinophil# 0.11 X10^3/uL; Eosinophils% 0.7 % (0-5); Hematocrit 45.3 % (37-47); Lymphocyte # 3.06 X10^3/ul (0.83-4.51); Lymphocyte % 20.1 % (19-41); Mean Corp Hgb Conc 33.1 g/dL (32-36); Mean Corpuscular Hgb 31.4 pg (27.0-32.0); Mean Corpuscular Volume 94.8 fL (81-99); Mean Platelet Vol. 10.6 fl (6.2-12.0); Monocyte# 1.35 X10^3/uL; Monocyte% 8.9 % (0-10); NRBC Flagged by Analyzer 0 % (0-5); Neutrophil # 10.51 X10^3/uL (2.7-7.7); Platelet Count 330 K/mm3 (150-450); RBC Distribution Width CV 12.5 % (11.6-14.6); RBC Distribution Width SD 43.5 fl (35.1-43.9); Red Blood Count 4.78 M/mm3 (4.2-5.4); White Blood Count 15.2 K/mm3 (4.4-11.0)
[2024-02-23 20:28] LABS: Anion Gap 6 (5-15); BUN 9 mg/dL (7-18); Calcium,Total 9.6 mg/dL (8.5-10.1); Chloride 105 mmol/L (98-107); Creatinine, Serum 0.82 mg/dL (0.55-1.02); EST Glomerular Filtration Rate 76 mL/min (>60); Est Glom Filt Rate - Afr Amer 92 mL/min (>60); Estimated Creatinine Clearance 81.82 ml/min; Glucose 126 mg/dL (74-106); Potassium 3.7 mmol/L (3.5-5.1); Sodium Level 138 mmol/L (136-145); Troponin-I HS (w/2H Reflex) 4 pg/mL (3.0-54.0)
[2024-02-23 21:47] VITALS: BP 126/82; PULSE 117; RESP 18; O2SAT 96
[2024-02-23 22:10] LABS: Reflex Troponin-HS? (from REC) Y
[2024-02-23 23:00] VITALS: BP 128/100; PULSE 105; RESP 16; O2SAT 98
--- NOTE | 2024-02-23 23:06 | CT_ITS ---
ACR Level 3 findings have been noted. An addendum which confirms receipt of the report will follow. STUDY: CTA CHEST REASON FOR EXAM: Female, 58 years old. Palpitations, concern for PE RADIATION DOSAGE (If Supplied By Facility): CTDIvol = ( 22.16 ) mGy, DLP = ( 586.33 ) mGycm TECHNIQUE: The examination was performed with the intravenous administration of IV 100mL Isovue-370. Post-processing of the angiographic images was performed, with multiplanar reformation and 3D reconstruction. Individualized dose optimization techniques were used for this CT. COMPARISON: None. FINDINGS: Normal enhancement of the main pulmonary artery and right and left pulmonary arteries. Normal enhancement of the bilateral peripheral pulmonary arteries. There is no demonstrated pulmonary embolism. Normal thoracic aorta and visualized great vessels. There is no demonstrated aortic dissection. Normal heart and pericardium. Normal mediastinum. Normal hilar regions. Normal visualized trachea and bronchi. The lungs are well expanded. There is emphysema of the lungs. There is 3.0 x 2.9 cm right upper lobe mass with adjacent consolidation. Normal pleura. Normal chest wall structures. There are degenerative changes of thoracic spine. Normal visualized upper abdomen. CT/CTA Chest W/WO Contrast IMPRESSION: CTA chest examination, without a demonstrated pulmonary embolism or arterial dissection. Right upper lobe mass. Correlation with bronchoscopy and biopsy and/or PET scan recommended. Electronically Signed: Paulo Trejo MD at 23:53 EDT ,
[2024-02-23 23:36] LABS: Lactic Acid 1.4 mmol/L (0.4-1.9)
[2024-02-23 23:53] LABS: BNP,B-Type NATRIURETIC PEPTIDE 11.6 pg/mL (0-100)
[2024-02-24 00:51] LABS: Troponin-I HS 4 pg/mL (3.0-54.0)
[2024-02-24 01:00] VITALS: PULSE 111; RESP 22; O2SAT 97
--- NOTE | 2024-02-24 01:00 | EDS_ITS ---
HPI History of Present Illness Chief Complaint: Palpitations Informant: patient Narrative Narrative: Patient is a 50-year-old female history of tobacco use, SVT, hypertension, sinus tachycardia and thyroid dysfunction presenting with palpitations. States started with palpitations yesterday. Today her heart rate was going up to 140- 150 for short amount of time. She notes and just her heart rates been above 100. She notes in the past 6 days she has had viral symptoms including some sinus congestion and cough. She has some mild swelling of her left lower leg/ankle but states intermittently swollen over the past year. Has had some mild associated nausea. Denies any chest pain or pressure. Denies any difficulty breathing. No other complaints or concerns at this time. Notes her daughters had similar viral symptoms as well. Patient is concerned that her heart rate could be from her thyroid as she has had heart rate issues when her thyroid levels have been off in the past before. Does not currently take any rate control medication and states that she has seen electrophysiology in the past but they were not too concerned. 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 Wears glasses Wears dentures History of hiatal hernia Gastric reflux Smoker Chronic cough On home oxygen therapy Sleep apnea History of echocardiogram Cardiology follow-up encounter Lumbar degenerative disc disease Dominguez's cyst of knee Vitamin D deficiency Pre-diabetes Cholecystectomy planned Swine flu Essential hypertension IBS (irritable bowel syndrome) Meniere disease Depression Anxiety GERD (gastroesophageal reflux disease) Hyperthyroidism Hypertension Sinus tachycardia Tobacco abuse Paroxysmal SVT (supraventricular tachycardia) Premature ventricular contraction Premature atrial contractions Home Medications ?Medication ?Instructions ?Recorded ?Last Taken ?Type levothyroxine 150 mcg tablet 150 mcg PO DAILY 06/24/21 Unknown History (Synthroid) albuterol sulfate 90 mcg/actuation 2 puff inhalation Q4H PRN PRN 02/15/22 Unknown Rx aerosol inhaler (Ventolin HFA) Wheezing #1 device levofloxacin 750 mg tablet 750 mg PO DAILY #6 tabs 02/24/24 Unknown Rx Allergy/AdvReac Type Severity Reaction Status Date / Time codeine Allergy Rash Verified 02/23/24 19:49 hydrocodone bitartrate (From Allergy Rash Verified 02/23/24 19:49 Vicodin) methimazole (From Tapazole) Allergy Shortness Verified 02/23/24 19:49 of breath famotidine (From Pepcid) AdvReac Unknown Unknown Verified 02/23/24 19:49 estradiol (From CombiPatch) AdvReac myalgias, Verified 02/23/24 19:49 lip/mouth burn, SOB, nausea, dizziness methylprednisolone sodium AdvReac Other Verified 02/23/24 19:49 succinate (From Solu-Medrol) norethindrone (From AdvReac myalgias, Verified 02/23/24 19:49 CombiPatch) lip/mouth burn, SOB, nausea, dizziness oxycodone HCl (From Percocet) AdvReac Nausea/Vom/ Verified 02/23/24 19:49 Diarrhea cyp 2019 AdvReac Intermediate unknown Uncoded 08/16/22 15:13 CYP2B6 AdvReac Unknown unknown Uncoded 08/16/22 15:13 Family History Father CAD (coronary artery disease) Hypertension Myocardial infarction, Onset Age: 66 Hx of CABG Surgical History History of left oophorectomy History of tubal ligation History of cholecystectomy Social History Smoking Status: Current every day smoker tobacco type: cigarettes alcohol intake: never substance use type: does not use caffeine: No ROS ROS ED Constitutional Constitutional ED: Denies chills or fever(s) ENT ENT ED: Reports sore throat and other Details: Congestion ; Denies ear pain Cardiovascular Cardiovascular: Reports palpitations and racing heartbeat; Denies chest pain Respiratory/Chest Respiratory/Chest: Reports cough; Denies dyspnea Gastrointestinal Gastrointestinal: Reports nausea; Denies abdominal pain or vomiting Musculoskeletal Musculoskeletal: Denies arthralgias or myalgias Integumentary Denies rash Neurologic Neurologic: Denies headache(s) Hematologic/Lymphatic Hematologic/Lymphatic: Denies easy bleeding or easy bruising EXAM Physical Exam Const Vital Signs: 02/23/24 19:50 02/23/24 19:55 02/23/24 21:47 Temperature 98.1 F Temperature Source Oral Pulse Rate 116 H 117 H Respiratory Rate 18 18 Blood Pressure 164/101 H 126/82 H Blood Pressure Mean 122 96 Pulse Ox 94 96 Oxygen Delivery Method Room Air Room Air Room Air 02/23/24 23:00 Temperature Temperature Source Pulse Rate 105 H Respiratory Rate 16 Blood Pressure 128/100 H Blood Pressure Mean 109 Pulse Ox 98 Oxygen Delivery Method Room Air Positive well nourished and well developed General Appearance ED: well developed and NAD HEENT Reports TM's clear and moist mucous membranes HEENT Narrative: Normal oropharynx, normal nasal exam Tympanic Membrane ED: Yes TM's clear Eyes PERRL and EOMs intact bilaterally Neck supple and no JVD Chest Wall inspection of chest normal and palpation of chest normal Resp normal respiratory effort and clear to auscultation bilaterally Auscultation: Negative for wheezes or diminished lung sounds Cardio regular rhythm and no murmurs Rate: tachycardic GI non-distended Extremity normal to inspection General Extremety ED: Negative for edema or tenderness General Extremity: Negative for edema Neuro oriented x3 Sensorium / Orientation: alert Motor Exam: Negative for general weakness Psych mental status grossly normal Skin no rashes or lesions noted and no wounds MDM MDM MDM Narrative Medical decision making narrative: Patient 5 palpitations. She appears nontoxic no acute distress. Vital signs initially significant for hypertension mild tachycardia. Clinically patient appears euvolemic and does not appear dehydrated. She states she does not feel dehydrated. Differential includes pneumonia, pulmonary emboli, thyroid dysfunction, EMMANUEL and electrolyte normality. EKG does not show any acute ischemia or changes concerning for pericardial effusion or pericarditis. Workup is remarkable for leukocytosis with white blood cell count of 15.2. Does not have a left shift. Lactate is added on which is normal at 1.4. Delta high sensitive troponin is normal at 4 and 4. BNP is normal 11.6 and her TSH is normal at 1.670. Chest x-ray shows mild lower lung edema or atelectasis. CTA is added on for further evaluation and to rule out PE. This shows no acute dissection or PE but does show a right upper lobe mass that is 2.9 x 3 cm of the right upper lobe with adjacent consolidation and emphysematous changes of the lungs. Patient is informed of these findings. And counseled that she will need outpatient follow-up with pulmonology and is given referral. Counseled that given her leukocytosis, recent illness and consolidation we will put on a course of Levaquin however radiology was concerned about possible malignancy and she does need for the follow-up of this. Patient verbalized agreement understanding this. Patient discharged home in stable condition. Patient is given first dose of antibiotics in the emergency room Lab Data Attestation: I reviewed the patient's lab results. Labs: Laboratory Results - last 24 hr 02/23/24 02/23/24 02/24/24 19:55 23:07 00:10 WBC 15.2 H RBC 4.78 Hgb 15.0 Hct 45.3 MCV 94.8 MCH 31.4 MCHC 33.1 RDW Std Deviation 43.5 RDW Coeff of Linette 12.5 Plt Count 330 MPV 10.6 Immature Gran % (Auto) 0.800 Neut % (Auto) 69.0 Lymph % (Auto) 20.1 Terrell % (Auto) 8.9 Eos % (Auto) 0.7 Baso % (Auto) 0.5 Absolute Neuts (auto) 10.5 H Absolute Lymphs (auto) 3.06 Nucleated RBC % 0 Sodium 138 Potassium 3.7 Chloride 105 Carbon Dioxide 27.0 Anion Gap 6 BUN 9 Creatinine 0.82 Estim Creat Clear Calc 81.82 Est GFR (MDRD) Af Amer 92 Est GFR (MDRD) Non-Af 76 BUN/Creatinine Ratio 11.0 Glucose 126 H Lactic Acid 1.4 Calcium 9.6 Troponin I High Sens 4 4 B-Natriuretic Peptide 11.6 TSH 1.670 Radiography Chest X-Ray - ED: 1 View, Read by ED Physician, Read by Radiologist and No Acute Disease Diagnostic Testing: Clinical Impression(s) from Imaging Studies Chest X-Ray 02/23/24 19:55 IMPRESSION: Mild lower lung edema or atelectasis. Electronically Signed: Paulo Trejo MD at 21:30 EDT , Chest CTA 02/23/24 23:06 IMPRESSION: CTA chest examination, without a demonstrated pulmonary embolism or arterial dissection. Right upper lobe mass. Correlation with bronchoscopy and biopsy and/or PET scan recommended. Electronically Signed: Paulo Trejo MD at 23:53 EDT , ADDENDUM: 02/24/24 0033 IMPRESSION: CTA chest examination, without a demonstrated pulmonary embolism or arterial dissection. Right upper lobe mass. Correlation with bronchoscopy and biopsy and/or PET scan recommended. N.B. : Shirley Pop DO, confirmed on 02/24/2024 00:26:16 (ET) that the healthcare facility has received the radiology report. Electronically Signed: Paulo Trejo MD at 23:53 EDT , Rhythm Strip Rhythm Strip: Sinus Tach Rate: 112 Ectopy: None EKG Initial EKG: Attestation: I personally reviewed and interpreted this EKG as follows: Interpretation: Sinus Tachycardia Comments: Sinus tachycardia at a rate of 112 bpm Normal axis Normal intervals Nonspecific T wave abnormalities Prior EKG tracings: available for review Prior: Unchanged Discharge Plan Triage Chief Complaint: Palpitations ED Provider: Shirley Pop Dx/Rx/DC Orders Clinical Impression: Tachycardia, Mass of right lung, Leukocytosis Instructions: ED Palpitations Prescriptions: New levofloxacin 750 mg tablet 750 mg PO DAILY Qty: 6 0RF No Action levothyroxine [Synthroid] 150 mcg tablet 150 mcg PO DAILY albuterol sulfate [Ventolin HFA] 90 mcg/actuation HFA aerosol inhaler 2 puff inhalation Q4H PRN PRN (Reason: Wheezing) Qty: 1 2RF Primary Care Provider: Freddy Dee Referrals: Armen Sarmiento DO [Med Staff - Active Staff] - As soon as possible Freddy Dee MD [Primary Care Provider] - Activity Restrictions/Additional Instructions: Your blood cell count was elevated 15.2. There was a small consolidation seen in the right upper lobe of your lung and we will treat this for pneumonia. However, radiology was also concerned about a mass of the right upper lobe that is roughly 3 cm x 2.9 cm. Please follow-up with pulmonology and your primary care doctor for this as this needs further evaluation. Your TSH today was 1.670. Print Language: Belizean Disposition Disposition: Home, Self Care
[2024-02-24] MEDS: levoFLOXacin 750 MG Tablet PO (01:03)
[2024-02-24 01:07] VITALS: BP 114/70; PULSE 100; RESP 18; O2SAT 95
== END 2024-02-24 01:12 | disposition home or self-care (01) ==
PROVIDERS: Emergency Provider Emergency Medicine; PCP Family Medicine; Visit Provider Emergency Medicine
DX: R00.0 Tachycardia, unspecified (principal); R91.8 Other nonspecific abnormal finding of lung field; D72.829 Elevated white blood cell count, unspecified; R09.81 Nasal congestion; R11.0 Nausea; I10 Essential (primary) hypertension; R05.9 Cough, unspecified; Z79.890 Hormone replacement therapy
CPT/HCPCS: 71045; 71275; 80048; 83605; 83880; 84443; 84484; 85025; 93005; 99283; Q9967; A4216

== ENCOUNTER → 2024-03-07 | Outpatient (CLI) | payer MEDICAID, SELFPAY | END | disposition home or self-care (01) | LOC: ONC 08:25 | PROVIDERS: PCP Family Medicine; Referring Provider Clinical Nurse Specialist Adult Health; Visit Provider Clinical Nurse Specialist Adult Health | DX: D49.1 Neoplasm of unspecified behavior of respiratory system (principal) | CPT/HCPCS: 78815; A9552 ==

== ENCOUNTER → 2024-03-31 | Outpatient (CLI) | payer MEDICAID, SELFPAY ==
--- NOTE | 2024-03-31 06:00 | CT_ITS ---
EXAM: CT CHEST WITHOUT INTRAVENOUS CONTRAST CLINICAL INDICATION: RUL NODULE TECHNIQUE: Helically acquired images were obtained of the chest without intravenous contrast. This CT exam was performed using one or more of the following dose reduction techniques: automated exposure control, adjustment of the mA and/or kV according to patient size, and/or use of iterative reconstruction technique. RADIATION DOSE: CTDIvol = 17.46 mGy, DLP = 654.63 mGy-cm COMPARISON: PET CT March 07, 2024, CTA February 23, 2024, prior chest radiographs. FINDINGS: LUNGS AND PLEURAL SPACES: There is a well-circumscribed mildly bilobed nodule in the posterior-medial right upper lobe, posterior to the hilar structures, with some slight soft tissue stranding distending from this adjacent to the major fissure. Overall size estimated to be 1.6 cm x 1.4 cm, stable from PET/CT March 07, 2024. There was previously moderate adjacent airspace disease between the nodule and the posterior margin of the hilar structures which has resolved. There is also ill-defined patchy discontinuous partially groundglass and mildly denser nodular opacity in the medial left upper lobe which may be due to a nonconfluent infiltrative mass, overall zone roughly 1.7 cm x 1.1 cm x 1.4 cm with the more solid nodular component roughly 8 mm x 4 mm. Similar to February 23, 2024. There is similar emphysematous change in the lung apices. There is well-circumscribed left lower lobe posterior lateral nodule of 5 mm x 4.2 mm x 5 mm which is stable from February 23, 2024, not mentioned on prior exam. No pleural effusion or thickening. HEART: Unremarkable. Heart size is normal. No pericardial effusion. No significant coronary artery calcifications. MEDIASTINUM: See below. THYROID: Unremarkable. No thyroid lesions. BONES/JOINTS: Unremarkable. No suspicious lytic or blastic abnormality. VASCULATURE: Mild calcifications in the bilateral coronary arteries. Normal heart size. No evidence of aortic aneurysm or dissection. There is moderate calcification of the proximal left renal artery mild narrowing, similar to prior CTA. LYMPH NODES: Stable left prevascular 1 cm x 0.7 cm lymph node and right precarinal 1.3 cm x 1.1 cm lymph node. No significant hilar adenopathy is visible on the unenhanced exam. LIVER: UPPER ABDOMEN: No suspicious lesions in the partially included liver, almost completely included adrenals, partially included pancreas. Moderate fluid in the stomach. CT/Chest without Contrast IMPRESSION: 1. Similar solid well-circumscribed right posterior-medial upper lobe nodule posterior to the hilar structures. Compared to prior PET/CT March 07, 2024 and prior CTA February 23, 2024. This was indicated to be hypermetabolic primary lung cancer on prior PET/CT. 2. Not mentioned on the previous studies but stable on review are a mild patchy irregular zone of mixed groundglass opacity and nodularity in the medial left upper lobe and a 5 mm nodule in the left lower lobe. 3. Similar small mediastinal lymph nodes, not pathologic by size criteria. Electronically Signed: Mayela Bang MD at 23:24 EST ,
== END | disposition home or self-care (01) ==
LOC: CT 19:05
PROVIDERS: PCP Family Medicine; Visit Provider Internal Medicine Critical Care Medicine
DX: R91.1 Solitary pulmonary nodule (principal)
CPT/HCPCS: 71250

== ENCOUNTER 2024-05-12 15:44 | Emergency (ER) | payer MEDICAID, SELFPAY ==
[2024-05-12] VITALS (8 sets, daily range): BP systolic 165–205; BP diastolic 96–104; PULSE 103–135; RESP 16–23; TEMP 36.8; O2SAT 93–96; BMI 38.4
--- NOTE | 2024-05-12 15:58 | RAD_ITS ---
INDICATION: chest pain EXAMINATION/TECHNIQUE: X-RAY - XR Chest 2 Views COMPARISON: : February 23 2024 FINDINGS: LINES/DEVICES: None. LUNGS: No consolidation, edema or effusion. No pneumothorax. MEDIASTINUM AND CARDIOVASCULAR STRUCTURES: Cardiac silhouette not enlarged. Central airways and mediastinal contour are unremarkable. BONES AND SOFT TISSUES: Unremarkable. RAD/Chest PA and Lateral IMPRESSION: No radiographic evidence of acute cardiopulmonary disease. Electronically Signed: Milton Estrada DO at 16:38 EST ,
[2024-05-12 16:14] LABS: Absolute Lymphocyte Count 0.76 X10^3/uL (0.83-4.51); Absolute Neutrophil Count 6.3 X10^3/uL (2.0-7.7); Basophil# 0.05 X10^3/uL; Basophil% 0.6 % (0-1); Eosinophil# 0.06 X10^3/uL; Eosinophils% 0.7 % (0-5); Hemoglobin 15.6 g/dL (12.0-15.0); Lymphocyte # 0.76 X10^3/ul (0.83-4.51); Lymphocyte % 9.5 % (19-41); Mean Corp Hgb Conc 33.9 g/dL (32-36); Mean Corpuscular Hgb 32.2 pg (27.0-32.0); Mean Corpuscular Volume 94.8 fL (81-99); Mean Platelet Vol. 9.8 fl (6.2-12.0); Monocyte# 0.78 X10^3/uL; Monocyte% 9.7 % (0-10); NRBC Flagged by Analyzer 0 % (0-5); Neutrophil # 6.28 X10^3/uL (2.7-7.7); Neutrophil % 78.4 % (47-70); Platelet Count 245 K/mm3 (150-450); RBC Distribution Width CV 12.5 % (11.6-14.6); RBC Distribution Width SD 43.6 fl (35.1-43.9); Red Blood Count 4.85 M/mm3 (4.2-5.4)
[2024-05-12] MEDS: 0.9% Normal Saline (1000mL) 1,000 ML 999 ML IV ×2 (16:15→19:52)
--- NOTE | 2024-05-12 16:15 | ED.RN ---
Dr. Macias bedside
[2024-05-12 16:34] LABS: Anion Gap 4 (5-15); BUN 7 mg/dL (7-18); BUN/Creat Ratio 8.1 RATIO (10-20); Calcium,Total 9.2 mg/dL (8.5-10.1); Chloride 105 mmol/L (98-107); Creatinine, Serum 0.87 mg/dL (0.55-1.02); EST Glomerular Filtration Rate 71 mL/min (>60); Est Glom Filt Rate - Afr Amer 86 mL/min (>60); Estimated Creatinine Clearance 75.84 ml/min; Glucose 152 mg/dL (74-106); Potassium 3.6 mmol/L (3.5-5.1); Sodium Level 138 mmol/L (136-145); Thyroid Stim Hormone (TSH) 0.882 uIU/mL (0.358-3.740); Troponin-I HS (w/2H Reflex) 6 pg/mL (3.0-54.0)
--- NOTE | 2024-05-12 16:47 | CT_ITS ---
INDICATION: pain radiating to back EXAMINATION: CTA CHEST, ABDOMEN AND PELVIS WITH CONTRAST - TECHNIQUE: A CTA of the chest, abdomen, and pelvis is obtained with sagittal and coronal reconstructed MIP views. Three-dimensional surface rendered sequence of the thoracic and abdominal aorta was obtained. The protocol utilizes one or more of the following dose reduction techniques: automated exposure control, adjustment of mA and/or kV according to patient size,and/or use of iterative reconstruction technique. mL of Isovue-370. Oral contrast: None. RADIATION DOSAGE (If Supplied By Facility): CTDIvol = ( 15.21 ) mGy, DLP = ( 1361.41 ) mGycm COMPARISON: March 31, 2024 FINDINGS: CT CHEST: THORACIC AORTA: No atheromatous disease, no aneurysmal changes or dissection. ABDOMINAL AORTA: No aneurysm or dissection. No significant atheromatous disease. The iliac arteries are unremarkable. LUNGS: The lungs are well-expanded without acute changes. Stable 1.5 cm right upper lobe nodule. Stable left lower lobe 3 mm peripheral nodule. No effusions or pneumothorax. MEDIASTINUM: The thyroid gland is normal. No mediastinal or hilar adenopathy. HEART: Heart is normal size. No pericardial effusion. No CAD. CT ABDOMEN AND PELVIS: LIVER: The liver enhances homogeneously. Multiple small right hepatic 1.1 cm enhancing nodules. GALLBLADDER: The CBD is normal. Normal gallbladder. SPLEEN: Normal. PANCREAS: No masses or inflammation. ADRENAL GLANDS: 1.1 cm left adrenal nodule. KIDNEYS AND URETERS: The kidneys both enhance appropriately. There are normal size and shape. No hydronephrosis or nephrolithiasis. Bilateral small cysts. STOMACH: Normal. SMALL BOWEL: No abnormal distention of the small bowel. MESENTERY: No mesenteric inflammation. No ascites. COLON: No significant diverticulosis, masses or inflammation. The colon otherwise is normal. There is a large fatty ileocecal valve. APPENDIX: The appendix is visualized and normal. IVC: Normal. RETROPERITONEUM: No retroperitoneal lymphadenopathy. PELVIC STRUCTURES: Normal bladder. Small fatty umbilical hernia . SOFT TISSUE CHEST: The extrathoracic soft tissues are normal. BONES: No fractures or significant degenerative disease. CT/CTA Chst, Abd, Pel W and/or WO IMPRESSION: No aortic dissection. Small fatty umbilical hernia. Stable pulmonary nodular densities. Bilateral renal cysts. Small left adrenal nodule. Electronically Signed: Milton Estrada DO at 18:19 EST Reading Location ID and State: [facility] / [place] Tel [phone], Service support ,
--- NOTE | 2024-05-12 17:12 | ED.VIS.CHEST ---
HPI History of Present Illness Chief Complaint: Palpitations Narrative Narrative: Patient is a 58-year-old female with a past medical history of anxiety, depression, IBS, prediabetic, ANDRESSA, hypertension, tobacco abuse, paroxysmal SVT, PVCs, PACs, factor V Leiden carrier, hypothyroidism who presented to the emergency department with a chief complaint of feel like her heart was racing. Patient states that earlier today she felt like her heart was racing and was having lower abdominal pressure radiating to her back. She states that her symptoms were not improving therefore she came here for the valuation management. She states that she is getting diffuse body chills and just does not feel right. 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 Wears glasses Wears dentures History of hiatal hernia Gastric reflux Smoker Chronic cough On home oxygen therapy Sleep apnea History of echocardiogram Cardiology follow-up encounter Lumbar degenerative disc disease Dominguez's cyst of knee Vitamin D deficiency Pre-diabetes Cholecystectomy planned Swine flu Essential hypertension IBS (irritable bowel syndrome) Meniere disease Depression Anxiety GERD (gastroesophageal reflux disease) Hyperthyroidism Hypertension Sinus tachycardia Tobacco abuse Paroxysmal SVT (supraventricular tachycardia) Premature ventricular contraction Premature atrial contractions Home Medications ?Medication ?Instructions ?Recorded ?Last Taken ?Type levothyroxine 150 mcg tablet 150 mcg PO DAILY 06/24/21 Unknown History (Synthroid) nizatidine 150 mg capsule 150 mg PO BID 03/31/24 Unknown History Allergy/AdvReac Type Severity Reaction Status Date / Time codeine Allergy Rash Verified 05/12/24 15:45 hydrocodone bitartrate (From Allergy Rash Verified 05/12/24 15:45 Vicodin) methimazole (From Tapazole) Allergy Shortness Verified 05/12/24 15:45 of breath famotidine (From Pepcid) AdvReac Unknown Unknown Verified 05/12/24 15:45 estradiol (From CombiPatch) AdvReac myalgias, Verified 05/12/24 15:45 lip/mouth burn, SOB, nausea, dizziness methylprednisolone sodium AdvReac Other Verified 05/12/24 15:45 succinate (From Solu-Medrol) norethindrone (From AdvReac myalgias, Verified 05/12/24 15:45 CombiPatch) lip/mouth burn, SOB, nausea, dizziness oxycodone HCl (From Percocet) AdvReac Nausea/Vom/ Verified 05/12/24 15:45 Diarrhea cyp 2019 AdvReac Intermediate unknown Uncoded 05/09/24 13:31 CYP2B6 AdvReac Unknown unknown Uncoded 05/09/24 13:31 Family History Father CAD (coronary artery disease) Hypertension Myocardial infarction, Onset Age: 66 Hx of CABG Surgical History History of left oophorectomy History of tubal ligation History of cholecystectomy Social History Smoking Status: Heavy Smoker (>10/day) alcohol intake: never substance use type: does not use caffeine: No ROS ROS ED ROS Narrative Constitutional: Denies any fevers, lightheadedness, dizziness, headaches Eyes: Denies change in vision double vision blurry vision Cardiovascular: Complains of palpitations as noted above and slight chest pressure Respiratory: Denies coughing wheezing shortness of breath Abdomen: Complains of lower abdominal pressure denies nausea vomiting diarrhea states that she is passing gas : Denies any urinary symptoms Neurological: Denies any numbness, weakness, tingling Musculoskeletal: Complains of back pain as noted above Skin: Denies any rashes or lesions EXAM Physical Exam Narrative Exam Narrative: General: Patient lying in bed rest comfortably did not appear to be acute distress Head: Atraumatic, normocephalic Eyes: PERRL bilaterally, EOMI bilaterally, no conjunctival injection noted Neck: Soft, supple, trachea midline Cardiovascular: Patient tachycardic with a regular rhythm no murmurs gallops rubs noted Respiratory: Clear to auscultation bilaterally no rales rhonchi or wheezes noted Abdomen: Soft, nondistended, nontender to palpation, bowel sounds present x 4 Extremities: Radial pulses +2/4 in the bilateral upper extremities, DP pulses +2/4 in the bilateral lower extremities, no pedal edema on exam Neurological: Patient following commands knew that she was at [facility] years 2024 Skin: Warm, dry, intact Const Vital Signs: 05/12/24 15:44 05/12/24 16:08 05/12/24 16:09 Temperature 98.2 F 98.3 F Temperature Source Oral Oral Pulse Rate 135 H Respiratory Rate 16 Blood Pressure 205/96 H Blood Pressure Mean 132 Pulse Ox 95 96 Oxygen Delivery Method Room Air Room Air 05/12/24 17:34 05/12/24 18:00 05/12/24 19:00 Temperature Temperature Source Pulse Rate 115 H 114 H 110 H Respiratory Rate 23 H 22 H 20 H Blood Pressure 165/104 H Blood Pressure Mean 124 Pulse Ox 96 93 96 Oxygen Delivery Method Room Air 05/12/24 20:00 Temperature Temperature Source Pulse Rate 103 H Respiratory Rate Blood Pressure Blood Pressure Mean Pulse Ox Oxygen Delivery Method MDM MDM MDM Narrative Medical decision making narrative: patient is a 58-year-old female who presents to the emergency department chief complaint of palpitations, lower abdominal pressure and back pain. On the differential diagnose includes but not limited to aortic dissection, PE, ACS, pneumonia, hyperthyroidism, hypothyroidism. Once workup is obtained reviewed she will be reevaluated. Patient be given IV fluids for hydration. Did bedside ultrasound and FAST exam was negative, no pericardial effusion noted. Patient CBC was reviewed showed no evidence leukocytosis white blood count was normal at 8, hemoglobin 15.6, platelet count was noted to be normal at 245. Patient sodium normal 138, potassium normal 3.6, creatinine normal at 0.87. Patient's troponin was noted to be 6 with a delta troponin obtained normal at 5. Patient's EKG reviewed and independently interpreted by myself showed sinus tachycardia at a rate of [address] changes noted. Patient's TSH normal at 0.88. Patient's chest x-ray reviewed by myself and by radiology showed no acute cardiopulmonary processes. Patient CTA chest abdomen pelvis reviewed showed no aortic dissection. Small fat umbilical hernia. Stable pulmonary nodules and densities she already is aware of this, bilateral renal cyst small left adrenal nodule. Patient tested positive for COVID here in the emergency department. Reevaluation the patient she was still tachycardic in 120s she was given another liter of fluids and then will be reevaluated. On reevaluation the patient at 9:12 PM her heart rate has improved significantly to 103 and after Tylenol she feels much improved she would like to go home at this point time. She was encouraged to continue supportive care and return with worsening symptoms or concerns otherwise she can follow-up with her primary care physician outpatient setting. She is agreeable to plan all question concerns answered she is discharged home in stable condition. Lab Data Labs: Laboratory Results - last 24 hr 05/12/24 05/12/24 16:00 18:20 WBC 8.0 RBC 4.85 Hgb 15.6 H Hct 46.0 MCV 94.8 MCH 32.2 H MCHC 33.9 RDW Std Deviation 43.6 RDW Coeff of Linette 12.5 Plt Count 245 MPV 9.8 Immature Gran % (Auto) 1.100 H Neut % (Auto) 78.4 H Lymph % (Auto) 9.5 L [place] % (Auto) 9.7 Eos % (Auto) 0.7 Baso % (Auto) 0.6 Absolute Neuts (auto) 6.3 Absolute Lymphs (auto) 0.76 L Nucleated RBC % 0 Sodium 138 Potassium 3.6 Chloride 105 Carbon Dioxide 29.0 Anion Gap 4 L BUN 7 Creatinine 0.87 Estim Creat Clear Calc 75.84 Est GFR (MDRD) Af Amer 86 Est GFR (MDRD) Non-Af 71 BUN/Creatinine Ratio 8.1 L Glucose 152 H Calcium 9.2 Troponin I High Sens 6 5 TSH 0.882 Radiography Diagnostic Testing: Clinical Impression(s) from Imaging Studies Chest X-Ray 05/12/24 15:58 IMPRESSION: No radiographic evidence of acute cardiopulmonary disease. Electronically Signed: Milton Estrada DO at 16:38 EST , Chest/Abdomen/Pelvis CTA 05/12/24 16:47 IMPRESSION: No aortic dissection. Small fatty umbilical hernia. Stable pulmonary nodular densities. Bilateral renal cysts. Small left adrenal nodule. Electronically Signed: Milton Estrada DO at 18:19 EST , Discharge Plan Triage Chief Complaint: Palpitations ED Provider: Herbert Macias Dx/Rx/DC Orders Clinical Impression: COVID-19, Back pain Prescriptions: No Action levothyroxine [Synthroid] 150 mcg tablet 150 mcg PO DAILY nizatidine 150 mg capsule 150 mg PO BID Primary Care Provider: Freddy Dee: Freddy Dee MD [Primary Care Provider] - Activity Restrictions/Additional Instructions: You tested positive for COVID here in the emergency department. Rotate Tylenol and ibuprofen [id number] for body aches and fever control. Continue supportive care. Follow with your primary care physician and return with worsening symptoms or concerns. Print Language: Indian Disposition Disposition: Home, Self Care
[2024-05-12 18:04] LABS: Reflex Troponin-HS? (from REC) Y
[2024-05-12 18:44] LABS: Troponin-I HS 5 pg/mL (3.0-54.0)
[2024-05-12] MEDS: Acetaminophen 500 MG Tablet 1000 MG PO (19:51)
--- NOTE | 2024-05-12 19:53 | ED.RN ---
Patient to formerly [facility], [facility] stating she wants to leave and feels like she is not receiving the care she should be. Patient also stating that she asked for tylenol 5 hours ago. Patient has only been in ED for 4 hours. Patient was notified of her request for tylenol approx 40 minutes ago when her son requested it for her. Patient has been self ambulating to the bathroom and back multiple times. Patient medicated by Samy MARRERO.
== END 2024-05-12 21:25 | disposition home or self-care (01) ==
PROVIDERS: Emergency Provider Emergency Medicine; PCP Family Medicine; Visit Provider Emergency Medicine
DX: U07.1 COVID-19 (principal); P00.2 Newborn affected by maternal infectious and parasitic diseases; M54.9 Dorsalgia, unspecified; R10.30 Lower abdominal pain, unspecified; K42.9 Umbilical hernia without obstruction or gangrene; R00.0 Tachycardia, unspecified; I10 Essential (primary) hypertension; E27.8 Other specified disorders of adrenal gland; E03.9 Hypothyroidism, unspecified; G47.33 Obstructive sleep apnea (adult) (pediatric); R73.03 Prediabetes; F32.A Depression, unspecified; F41.9 Anxiety disorder, unspecified; Z79.890 Hormone replacement therapy; Z79.899 Other long term (current) drug therapy; Z99.81 Dependence on supplemental oxygen

== ENCOUNTER 2024-05-31 01:41 | Emergency (ER) | payer MEDICAID, SELFPAY ==
[2024-05-31 01:43] VITALS: BP 165/110; PULSE 117; RESP 20; TEMP 36.3; O2SAT 95; BMI 40.1
[2024-05-31 01:50] VITALS: BP 157/91; PULSE 115; RESP 21; TEMP 36.4; O2SAT 94
--- NOTE | 2024-05-31 02:09 | RAD_ITS ---
PROCEDURE: CHEST PA AND LATERAL REASON FOR EXAM: Intermittent shortness of breath. Nausea and diarrhea. Abdominal pain. TECHNIQUE: Frontal and lateral views of the chest. COMPARISON: Correlation with CT thorax dated is 03/31/2024 FINDINGS: Lungs are well aerated. No focal airspace consolidation, pneumothorax or pleural effusion is seen. Known nodular density within the posterior right upper lobe, not well appreciated on chest x-ray. Remaining lung markings otherwise appears clear. Heart size and great vessels are within normal limits. The visualized osseous thorax appears intact. Minimal spondylotic change involving the thoracic spine. EKG wires overlie the chest. RAD/Chest PA and Lateral IMPRESSION: No acute cardiopulmonary process identified. Reading Location: [facility]
[2024-05-31 02:15] LABS: Bacteria 0 SEEN /hpf (None Seen); Red Blood Cells-Urine 0 SEEN /hpf (0-5); White Blood Cells 0 SEEN /hpf (0-5)
[2024-05-31 02:20] LABS: Absolute Lymphocyte Count 3.91 X10^3/uL (0.83-4.51); Basophil# 0.09 X10^3/uL; Basophil% 0.7 % (0-1); Eosinophil# 0.19 X10^3/uL; Eosinophils% 1.4 % (0-5); Hematocrit 48.7 % (37-47); Hemoglobin 16.1 g/dL (12.0-15.0); Lymphocyte # 3.91 X10^3/ul (0.83-4.51); Mean Corp Hgb Conc 33.1 g/dL (32-36); Mean Corpuscular Hgb 31.8 pg (27.0-32.0); Mean Corpuscular Volume 96.1 fL (81-99); Mean Platelet Vol. 9.8 fl (6.2-12.0); Monocyte# 1.15 X10^3/uL; Monocyte% 8.5 % (0-10); NRBC Flagged by Analyzer 0 % (0-5); Neutrophil # 8.03 X10^3/uL (2.7-7.7); Neutrophil % 59.7 % (47-70); Platelet Count 299 K/mm3 (150-450); RBC Distribution Width CV 13.1 % (11.6-14.6); RBC Distribution Width SD 46.2 fl (35.1-43.9); Red Blood Count 5.07 M/mm3 (4.2-5.4); White Blood Count 13.5 K/mm3 (4.4-11.0)
[2024-05-31 02:21] LABS: Color, Urine Straw (Yellow); Glucose, Dipstick Normal (Normal); Ketone-Dipstick Negative (Negative); Leukocyte Esterase-Dipstick Negative /ul (Negative); Nitrite-Dipstick Negative (Negative); Occult Blood-Urine 50 /ul (Negative); Protein-Dipstick Negative (Negative); Urine Bilirubin Dipstick Negative (Negative); Urine Clarity Clear (Clear); Urine Urobilinogen Normal (Normal)
[2024-05-31] MEDS: Dicyclomine 10 MG Capsule 20 MG PO (02:21)
[2024-05-31] MEDS: 0.9% Normal Saline (1000mL) 1,000 ML 999 ML IV (02:21)
[2024-05-31 02:46] LABS: AST(SGOT) 34 U/L (15-37); Alanine Aminotransfer ALT/SGPT 65 U/L (13-56); Albumin, Serum 3.7 g/dL (3.2-5.0); Alkaline Phosphatase 90 U/L (45-117); Anion Gap 9 (5-15); BUN 10 mg/dL (7-18); BUN/Creat Ratio 12.4 RATIO (10-20); Calcium,Total 9.1 mg/dL (8.5-10.1); Chloride 104 mmol/L (98-107); EST Glomerular Filtration Rate 78 mL/min (>60); Est Glom Filt Rate - Afr Amer 94 mL/min (>60); Estimated Creatinine Clearance 84.59 ml/min; Globulin 4.5 g/dL (2.2-4.2); Glucose 132 mg/dL (74-106); Lipase 54 U/L (13-75); Magnesium 2.3 mg/dL (1.6-2.6); Potassium 3.2 mmol/L (3.5-5.1); Protein, Total 8.2 g/dL (6.4-8.2); Sodium Level 137 mmol/L (136-145)
[2024-05-31 02:50] VITALS: BP 147/96; PULSE 80; RESP 18; TEMP 36.4; O2SAT 94
[2024-05-31 02:54] LABS: Squamous Epithelial Cells - UA 5-10 SEEN /hpf (5-10); Transitional Epithelial - Ur 0-5 SEEN /hpf (0-5)
[2024-05-31 02:55] LABS: Mucous, Urine 2+ /hpf (<or=2+)
[2024-05-31 03:00] VITALS: BP 140/72; PULSE 82; RESP 18; TEMP 36.4; O2SAT 95
[2024-05-31 03:37] VITALS: BP 106/62; PULSE 77; RESP 15; TEMP 36.4; O2SAT 97
--- NOTE | 2024-05-31 03:38 | EDS_ITS ---
HPI History of Present Illness Chief Complaint: General Illness Informant: patient and spouse/S.O. Narrative Narrative: Patient is a 58-year-old female with past medical history of hypertension and hypothyroidism. She states roughly 2 to 3 weeks ago she was diagnosed with COVID. She states she got over this and then began feeling abdominal bloating and spasm with loose stool diarrhea and excessive fatigue. She reports that she has been told she is prediabetic and occasionally checks her blood sugars and she states they have been elevated at approximately 250. 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 Wears glasses Wears dentures History of hiatal hernia Gastric reflux Smoker Chronic cough On home oxygen therapy Sleep apnea History of echocardiogram Cardiology follow-up encounter Lumbar degenerative disc disease Dominguez's cyst of knee Vitamin D deficiency Pre-diabetes Cholecystectomy planned Swine flu Essential hypertension IBS (irritable bowel syndrome) Meniere disease Depression Anxiety GERD (gastroesophageal reflux disease) Hyperthyroidism Hypertension Sinus tachycardia Tobacco abuse Paroxysmal SVT (supraventricular tachycardia) Premature ventricular contraction Premature atrial contractions Home Medications ?Medication ?Instructions ?Recorded ?Last Taken ?Type levothyroxine 150 mcg tablet 150 mcg PO DAILY 06/24/21 Unknown History (Synthroid) nizatidine 150 mg capsule 150 mg PO BID 03/31/24 Unkno wn History dicyclomine 20 mg tablet 20 mg PO 4X/DAY PRN Abdomina l 05/31/24 Unknown Rx bloating/spasm #28 tabs Allergy/AdvReac Type Severity Reaction Status Date / Time codeine Allergy Rash Verified 05/31/24 01:51 hydrocodone bitartrate (From Allergy Rash Verified 05/31/24 01:51 Vicodin) methimazole (From Tapazole) Allergy Shortness Verified 05/31/24 01:51 of breath famotidine (From Pepcid) AdvReac Unknown Unknown Verified 05/12/24 15:45 estradiol (From CombiPatch) AdvReac myalgias, Verified 05/12/24 15:45 lip/mouth burn, SOB, nausea, dizziness methylprednisolone sodium AdvReac Other Verified 05/31/24 01:51 succinate (From Solu-Medrol) norethindrone (From AdvReac myalgias, Verified 05/31/24 01:51 CombiPatch) lip/mouth burn, SOB, nausea, dizziness oxycodone HCl (From Percocet) AdvReac Nausea/Vom/ Verified 05/31/24 01:51 Diarrhea cyp 2019 AdvReac Intermediate unknown Uncoded 05/09/24 13:31 CYP2B6 AdvReac Unknown unknown Uncoded 05/09/24 13:31 Family History Father CAD (coronary artery disease) Hypertension Myocardial infarction, Onset Age: 66 Hx of CABG Surgical History History of left oophorectomy History of tubal ligation History of cholecystectomy Social History Smoking Status: Heavy Smoker (>10/day) alcohol intake: never substance use type: does not use caffeine: No ROS ROS ED Constitutional Constitutional ED: Denies chills or fever(s) Eyes Eyes: Denies change in vision ENT ENT ED: Denies rhinorrhea or sore throat Cardiovascular Cardiovascular: Denies chest pain Respiratory/Chest Respiratory/Chest: Reports cough; Denies dyspnea Gastrointestinal Gastrointestinal: Reports abdominal pain, diarrhea and nausea; Denies melena or vomiting Genitourinary Genitourinary ED: Reports urinary frequency; Denies dysuria or hematuria Musculoskeletal Musculoskeletal: Denies myalgias Integumentary Denies rash Neurologic Neurologic: Reports weakness; Denies headache(s) Hematologic/Lymphatic Hematologic/Lymphatic: Denies easy bleeding or easy bruising EXAM Physical Exam Const Vital Signs: 05/31/24 01:43 05/31/24 01:50 05/31/24 02:12 Temperature 97.4 F L 97.5 F L Temperature Source Oral Oral Pulse Rate 117 H 115 H Respiratory Rate 20 H 21 H Respiratory Effort Normal Non-Labored Respiratory Pattern Normal Blood Pressure 165/110 H 157/91 H Blood Pressure Mean 128 113 Pulse Ox 95 94 Oxygen Delivery Method Room Air Room Air 05/31/24 02:50 05/31/24 03:00 05/31/24 03:37 Temperature 97.5 F L 97.5 F L 97.6 F L Temperature Source Oral Oral Pulse Rate 80 82 77 Respiratory Rate 18 18 15 Respiratory Effort Respiratory Pattern Blood Pressure 147/96 H 140/72 H 106/62 Blood Pressure Mean 113 94 76 Pulse Ox 94 95 97 Oxygen Delivery Method Room Air Room Air Positive well nourished, well developed and obese General Appearance ED: well developed; Negative for pallor Nutritional Appearance: obese HEENT Reports dry mucous membranes HEENT Narrative: Mucous membranes are mildly dry and tacky No tongue or lip swelling no oral lesions no airway edema or compromise; no secondary findings to suggest infection in the posterior pharynx Mouth ED: Yes dry mucous membranes Mouth: dry mucous membranes Eyes PERRL and EOMs intact bilaterally General Eye ED: Negative for scleral icterus Neck supple Neck Narrative: No nuchal rigidity or meningeal signs Resp normal respiratory effort and clear to auscultation bilaterally Cardio regular rhythm Rate: tachycardic and other Other Details: Tachycardic rate with regular rhythm Radial and carotid pulses are equal and symmetric GI no masses GI Narrative: Abdomen is soft with slight distention. Bowel sounds are hyperactive. There is mild diffuse pain with palpation without voluntary guarding or rigidity. No pulsatile mass or fluid wave. No increased tympany Auscultation: hyperactive bowel sounds Palpation: soft Extremity normal to inspection Neuro oriented x3, CN's II-XII intact bilaterally and no sensory deficits noted Sensorium / Orientation: alert Motor Exam: strength 5/5 throughout Psych mental status grossly normal Skin no rashes or lesions noted and skin turgor normal General Skin Exam: Negative for jaundice or pallor MDM MDM MDM Narrative Medical decision making narrative: Patient arrived to the ER tachycardic and hypertensive. She reported initial infection with COVID which seemed to resolve and then returned with fatigue and frequent urination as well as diarrhea and abdominal discomfort. Differential diagnosis is for new viral infection such as influenza or RSV. Patient could also have viral stomach infection such as rotavirus or norovirus. As her physical exam shows dehydration there is concern for acute kidney injury or clinically significant electrolyte abnormality. With urinary frequency patient may have UTI. There is also potential for pancreatitis and with excessive fatigue potential thyroid dysfunction. Basic labs were obtained and show mild leukocytosis but otherwise no signs of EMMANUEL UTI pancreatitis or thyroid dysfunction. Based on her history and exam I feel this is most likely related to a viral stomach infection. She reports feeling better after IV hydration and treatment with Bentyl and her vitals stabilized as well. Therefore at times overall workup is negative we have had improvement of symptoms and vitals I do not feel there is need for further treatment in the ER or admission and she is otherwise safe for discharge History & Record Review Discussion w/independent historian: Patient and Significant other Lab Data Attestation: I reviewed the patient's lab results. Labs: Laboratory Results - last 24 hr 05/31/24 01:55 WBC 13.5 H RBC 5.07 Hgb 16.1 H Hct 48.7 H MCV 96.1 MCH 31.8 MCHC 33.1 RDW Std Deviation 46.2 H RDW Coeff of Linette 13.1 Plt Count 299 MPV 9.8 Immature Gran % (Auto) 0.700 Neut % (Auto) 59.7 Lymph % (Auto) 29.0 [place] % (Auto) 8.5 Eos % (Auto) 1.4 Baso % (Auto) 0.7 Absolute Neuts (auto) 8.0 H Absolute Lymphs (auto) 3.91 Nucleated RBC % 0 Sodium 137 Potassium 3.2 L Chloride 104 Carbon Dioxide 24.0 Anion Gap 9 BUN 10 Creatinine 0.80 Estim Creat Clear Calc 84.59 Est GFR (MDRD) Af Amer 94 Est GFR (MDRD) Non-Af 78 BUN/Creatinine Ratio 12.4 Glucose 132 H Calcium 9.1 Magnesium 2.3 Total Bilirubin 0.50 Direct Bilirubin 0.20 AST 34 ALT 65 H Alkaline Phosphatase 90 Total Protein 8.2 Albumin 3.7 Globulin 4.5 H Lipase 54 TSH 1.780 Urine Color Straw Urine Clarity Clear Urine pH 6.0 Ur Specific [place] 1.010 Urine Protein Negative Urine Glucose (UA) Normal Urine Ketones Negative Urine Occult Blood 50 H Urine Nitrite Negative Urine Bilirubin Negative Urine Urobilinogen Normal Ur Leukocyte Esterase Negative Urine RBC 0 SEEN Urine WBC 0 SEEN Ur Squamous Epith Cells 5-10 SEEN Ur Transition Epith Cell 0-5 SEEN Urine Bacteria 0 SEEN Urine Mucus 2+ Radiography Diagnostic Testing: Clinical Impression(s) from Imaging Studies Chest X-Ray 05/31/24 02:09 IMPRESSION: No acute cardiopulmonary process identified. Reading Location: [facility] Chest x-ray as interpreted by the emergency medicine physician reveals no acute infiltrate pneumothorax or pleural effusion Discharge Plan Triage Chief Complaint: General Illness ED Provider: Bhupinder Fritz Dx/Rx/DC Orders Clinical Impression: Dehydration, Diarrhea, Viral syndrome, Hypertension, Hypothyroidism Instructions: ED Dehydration (Adult), ED Gastroenteritis, Viral (Adult) Prescriptions: New dicyclomine 20 mg tablet 20 mg PO 4X/DAY PRN (Reason: Abdominal bloating/spasm) Qty: 28 0RF No Action levothyroxine [Synthroid] 150 mcg tablet 150 mcg PO DAILY nizatidine 150 mg capsule 150 mg PO BID Primary Care Provider: Freddy Dee Referrals: Freddy Dee MD [Primary Care Provider] - Activity Restrictions/Additional Instructions: Your workup today shows mild dehydration and your symptoms are most likely related to a viral stomach infection. This type of infection will spontaneously resolve but will last on average 3 days but can go as long as 7 to 10 days. Keep yourself well-hydrated and use the Bentyl/dicyclomine to help with abdominal bloating. Return to the ER should you have any further concerns Print Language: [place] Island[place] Disposition Disposition: Home, Self Care Discharge Date/Time: 05/31/24 03:42
== END 2024-05-31 03:42 | disposition home or self-care (01) ==
PROVIDERS: Emergency Provider Emergency Medicine; PCP Family Medicine; Visit Provider Emergency Medicine
DX: E86.0 Dehydration (principal); R10.9 Unspecified abdominal pain; B34.9 Viral infection, unspecified; Z11.52 Encounter for screening for COVID-19; R35.0 Frequency of micturition; R19.7 Diarrhea, unspecified; I10 Essential (primary) hypertension; E03.9 Hypothyroidism, unspecified; R73.03 Prediabetes; K21.9 Gastro-esophageal reflux disease without esophagitis; F17.200 Nicotine dependence, unspecified, uncomplicated; Z79.890 Hormone replacement therapy; Z79.899 Other long term (current) drug therapy
CPT/HCPCS: 71046; 80048; 80076; 81001; 83690; 83735; 84443; 85025; 87631; 96360; 99284; A4216

== ENCOUNTER 2024-06-13 20:36 | Emergency (ER) | payer MEDICAID, SELFPAY ==
[2024-06-13 20:38] VITALS: BP 190/109; PULSE 102; RESP 18; TEMP 36.4; O2SAT 98; BMI 40.3
--- NOTE | 2024-06-13 21:36 | ED.RN ---
checked carboxyhemoglobin level, resting @ 4%.
[2024-06-13 22:47] VITALS: BP 148/89; PULSE 81; RESP 18; O2SAT 91
--- NOTE | 2024-06-13 23:12 | EDS_ITS ---
HPI History of Present Illness Chief Complaint: Fatigue Informant: patient and family Narrative Narrative: Patient is a 58-year-old female with history of type 2 diabetes COPD hypertension anxiety and depression. She states for the past 3 weeks she is experienced excessive fatigue. She reports she had outpatient lab work done today which showed an elevated carboxyhemoglobin level. She states that she does smoke roughly a pack a day but over the last few weeks has had increased stress and has increased her smoking to roughly 2 packs a day. She states she does not have a car monoxide detector and is unsure if her furnace is malfunctioning. However because there is concern for carbon monoxide poisoning she was advised to come to the ER for evaluation. [facility] Medical History (Updated 06/18/24 @ 08:[address] 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 On home oxygen therapy Sleep apnea Lumbar degenerative disc disease Dominguez's cyst of knee Vitamin D deficiency Acquired hypothyroidism Essential hypertension IBS (irritable bowel syndrome) Meniere disease Depression Anxiety Hyperthyroidism Sinus tachycardia Paroxysmal SVT (supraventricular tachycardia) Premature ventricular contraction Premature atrial contractions Home Medications ?Medication ?Instructions ?Recorded ?Last Taken ?Type nizatidine 150 mg capsule 150 mg PO BID 03/31/24 Unkno wn History blood sugar diagnostic (OneTouch 06/13/24 Unknown His tory Verio test strips) blood-glucose sensor (FreeStyle 06/13/24 Unknown Hist ory Faith 3 Plus Sensor device) alprazolam 1 mg tablet 1 mg PO TID PRN 06/16/24 Unk nown History cholecalciferol (vitamin D3) 25 25 mcg PO QDAY 5 Unknown History mcg (1,000 unit) capsule dicyclomine 10 mg capsule 10 mg PO TID PRN 06/16/24 Un known History drospirenone (contraceptive) 4 mg 4 mg PO QDAY contrac eptive 06/16/24 Unknown History (28) tablet (Slynd) levothyroxine 150 mcg tablet 150 mcg PO DAILY 06/16/24 Unknown History (Synthroid) sucralfate 1 gram tablet PO 4XD 06/16/24 Unknown Hist ory Allergy/AdvReac Type Severity Reaction Status Date / Time codeine Allergy Rash Verified 06/14/24 10:23 hydrocodone bitartrate (From Allergy Rash Verified 06/14/24 10:23 Vicodin) methimazole (From Tapazole) Allergy Shortness Verified 06/14/24 10:23 of breath metformin AdvReac Intermediate myalgias Verified 06/16/24 09:33 famotidine (From Pepcid) AdvReac Unknown Unknown Verified 06/14/24 10:23 estradiol (From CombiPatch) AdvReac myalgias, Verified 06/14/24 10:23 lip/mouth burn, SOB, nausea, dizziness methylprednisolone sodium AdvReac Other Verified 06/14/24 10:23 succinate (From Solu-Medrol) norethindrone (From AdvReac myalgias, Verified 06/14/24 10:23 CombiPatch) lip/mouth burn, SOB, nausea, dizziness oxycodone HCl (From Percocet) AdvReac Nausea/Vom/ Verified 06/14/24 10:23 Diarrhea cyp 2019 AdvReac Intermediate unknown Uncoded 05/09/24 13:31 CYP2B6 AdvReac Unknown unknown Uncoded 05/09/24 13:31 Family History (Updated 06/16/24 @ 09:36 by Yarelis Wilkins RN) Father CAD (coronary artery disease) Hypertension Myocardial infarction, Onset Age: 66 Hx of CABG Colon cancer Diabetes Mother CVA (cerebral vascular accident) Diabetes Sister Thyroid disorder Surgical History (Updated 06/16/24 @ 09:35 by Yarelis Wilkins RN) Hx of radioactive iodine thyroid ablation History of left oophorectomy History of tubal ligation History of cholecystectomy Social History Smoking Status: Heavy Smoker (>10/day) alcohol intake: never substance use type: does not use caffeine: No ROS ROS ED Constitutional Constitutional ED: Reports other Details: Positive fatigue ; Denies chills or fever(s) Eyes Eyes: Denies blurry vision or change in vision ENT ENT ED: Denies sore throat Cardiovascular Cardiovascular: Denies chest pain Respiratory/Chest Respiratory/Chest: Reports cough; Denies dyspnea Gastrointestinal Gastrointestinal: Reports abdominal pain, nausea and other Details: Patient reports abdominal pain is chronic in nature ; Denies diarrhea or vomiting Genitourinary Genitourinary ED: Denies dysuria Musculoskeletal Musculoskeletal: Denies myalgias Integumentary Denies rash Neurologic Neurologic: Reports headache(s) Hematologic/Lymphatic Hematologic/Lymphatic: Denies easy bleeding or easy bruising EXAM Physical Exam Const Vital Signs: 06/13/24 20:38 06/13/24 22:47 06/13/24 22:47 Temperature 97.6 F L Temperature Source Temporal Pulse Rate 102 H 81 Respiratory Rate 18 18 Respiratory Effort Normal Respiratory Pattern Normal Blood Pressure 190/109 H 148/89 H Blood Pressure Mean 136 108 Pulse Ox 98 91 Oxygen Delivery Method Room Air Room Air Positive well nourished and well developed General Appearance ED: well developed; Negative for pallor HEENT Reports dry mucous membranes HEENT Narrative: No tongue or lip swelling no oral lesions no airway edema or compromise Mucous membranes are dry and tacky No secondary findings to suggest infection Mouth ED: Yes dry mucous membranes Mouth: dry mucous membranes Eyes PERRL and EOMs intact bilaterally General Eye ED: Negative for pale conjunctiva or scleral icterus Neck supple Neck Narrative: No nuchal rigidity or meningeal signs Chest Wall Chest Narrative: No bony deformity or crepitance noted Resp Resp Narrative: Breath sounds are diminished throughout with diffuse expiratory wheeze and rhonc hi noted in bilateral bases consistent with history of COPD and smoking but no signs of respiratory distress Cardio regular rate and regular rhythm Rate: other Other Details: Heart is regular rate and rhythm Radial and carotid pulses are equal and symmetric GI non-distended and no masses GI Narrative: Abdomen is soft and nondistended with normal active bowel sounds. There is diffuse pain with palpation but patient states this is chronic in nature. No voluntary guarding or rigidity peritoneal signs or pulsatile mass. Auscultation: normoactive bowel sounds Palpation: soft Extremity normal to inspection Extremity Narrative: No asymmetric edema no pitting edema negative Homans' sign bilaterally Neuro oriented x3, CN's II-XII intact bilaterally and no sensory deficits noted Neuro Narrative: GCS of 15 Cranial nerves II through XII are grossly intact without focal neurologic deficit No pronator drift no dysmetria no truncal ataxia NIH stroke scale score of 0 Sensorium / Orientation: alert Motor Exam: strength 5/5 throughout Psych Psych Narrative: Patient has a flat affect Skin no rashes or lesions noted General Skin Exam: Negative for jaundice or pallor MDM MDM MDM Narrative Medical decision making narrative: Patient arrived to the ER hypertensive but has a past medical history of this. She reported multiple weeks of generalized fatigue. She reports that with the recent labs showing elevated carboxyhemoglobin she was concerned for potential carbon oxide poisoning as the cause. However the patient states she has COPD she states that she typically smokes 1 pack a day but over the last few weeks has been smoking 2 or more packs per day secondary to increased stress. There is high likelihood that the elevated carboxyhemoglobin is secondary to her increased smoking and known COPD and not secondary to car monoxide exposure at an outside source. I discussed with patient we could repeat laboratory values to ensure there is no lab error to look for potential pancreatitis or biliary colic or acute loss anemia or acute kidney injury as a potential cause of her chronic fatigue. She states this blood work was done just a few hours ago and she highly doubts there will be any change from the outpatient laboratory studies. Chart review reveals that the upper limit of carboxyhemoglobin for her outpatient lab was 8 and her value was only slightly above this at approximately 10. With the fact she has known COPD and has had increased smoke exposure over the last few weeks I feel this is the main cause for the elevation and not true carbon oxide poisoning. The patient states as I feel this is the most likely cause and she does not want further testing and her vitals are stable she would just prefer to be discharged home. I do recommend the patient follow-up with a machine compositor as her chronic fatigue could be related to some type of autoimmune disease such as chronic fatigue syndrome or fibromyalgia but at this time as she does not want a further workup and her vitals are stable she is otherwise safe for discharge History & Record Review Discussion w/independent historian: Patient and Family Discharge Plan Triage Chief Complaint: Fatigue ED Provider: Bhupinder Fritz Dx/Rx/DC Orders Clinical Impression: Fatigue, Anxiety, Depression, Essential hypertension, Type 2 diabetes mellitus, COPD (chronic obstructive pulmonary disease) Instructions: ED Weakness (Uncertain Cause) Prescriptions: No Action levothyroxine [Synthroid] 150 mcg tablet 150 mcg PO DAILY Rx Instructions: One tab daily except 1/2 tab Sat/Sun nizatidine 150 mg capsule 150 mg PO BID alprazolam 1 mg tablet 1 mg PO TID PRN Patient Comments: [NO ORIGINAL SIG] sucralfate 1 gram tablet PO 4XD dicyclomine 10 mg capsule 10 mg PO TID PRN Slynd 4 mg (28) tablet 4 mg PO QDAY Patient Comments: [NO ORIGINAL SIG] cholecalciferol (vitamin D3) 25 mcg (1,000 unit) capsule 25 mcg PO QDAY (DME) OneTouch Verio test strips Strip MISCELLANEOUS (DME) FreeStyle Faith 3 Plus Sensor Device MISCELLANEOUS [facility] Primary Care Provider: Freddy Dee Referrals: Freddy Dee MD [Primary Care Provider] - Activity Restrictions/Additional Instructions: Please obtain a car monoxide detector and ensure that there is no exposure from your furnace at home. Until then refrain from being in the house as the treatment for exposure would be to remove yourself from the situation. Talk to your family doctor about referral to GI and/or rheumatology for further evaluation of your fatigue and recurrent abdominal pain and return to the ER should you have any further concerns Print Language: Urdu Disposition Disposition: Home, Self Care Discharge Date/Time: 06/13/24 23:30
[2024-06-13 23:30] VITALS: BP 110/80; PULSE 66; RESP 12; TEMP 36.8; O2SAT 99
== END 2024-06-13 23:30 | disposition home or self-care (01) ==
LOC: ED 23:28
PROVIDERS: Emergency Provider Emergency Medicine; PCP Family Medicine; Visit Provider Emergency Medicine
DX: R53.83 Other fatigue (principal); J44.9 Chronic obstructive pulmonary disease, unspecified; E11.9 Type 2 diabetes mellitus without complications; E03.9 Hypothyroidism, unspecified; I10 Essential (primary) hypertension; F32.A Depression, unspecified; F41.9 Anxiety disorder, unspecified; F17.210 Nicotine dependence, cigarettes, uncomplicated; Z79.890 Hormone replacement therapy; Z79.899 Other long term (current) drug therapy
CPT/HCPCS: 99282

== ENCOUNTER 2024-06-19 06:36 | Day surgery (SDC) | payer MEDICAID, SELFPAY ==
--- NOTE | 2024-06-14 12:26 | PAT.ANE_ITS ---
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 When Was Last Pacemaker Check QUESTION #4 FULL TEXT: You/Your Family Experience fever (hyperthermia) with Anesthesia Last Oral Intake Last Oral intake: Last Oral Intake NPO since Meds taken in AM with sips of water? Meds patient instructed to take am of surgery PONV PONV - retort condenser attendant: PONV - retort condenser attendant Female Yes 06/14/24 10:35 HX of Motion Sickness No 06/14/24 10:35 HX of N/V After Surgery No 06/14/24 10:35 Non-Smoker No 06/14/24 10:35 Duration of Surgery greater No 06/14/24 10:35 than 60 minutes Number of Risk Factors 1 06/14/24 10:35 PONV Score Low Risk 06/14/24 10:35 Height & Weight Height & Weight: Anesthesia: Height & Weight Height 5 ft 2 in 03/14/24 09:59 Respiratory Assessment Respiratory Assessment - retort condenser attendant: Respiratory Tract Infection Hx - retort condenser attendant Hx Respiratory Tract Infection No 06/14/24 10:35 STOP Sleep Apnea STOP Sleep Apnea - retort condenser attendant: STOP Sleep Apnea - retort condenser attendant Hx Hypertension No 06/14/24 10:35 Hx Sleep Apnea Yes: WEARS 2L 02 WHILE 06/14/24 10:35 SLEEPING CPAP No 06/14/24 10:35 BIPAP No 06/14/24 10:35 Do you snore loudly (louder than talking or can be heard Do you often feel tired/ fatigued/ sleepy during daytime? Has anyone observed you stop breathing during sleep? STOP Results Positive 06/14/24 10:35 QUESTION #5 FULL TEXT : Do you snore loudly (louder than talking or can be heard through closed doors)? Tobacco Use History Tobacco Use History - retort condenser attendant: Tobacco Use History - retort condenser attendant Tobacco Use Cigarettes 12/25/20 15:48 Smoking Status Heavy Smoker (>10/day) 06/14/24 10:35 Hx Tobacco Use Yes 06/14/24 10:35 Years Smoking Packs Smoked per Day Smoking Cessation Date was within the last 15 years Hx Smoking Cessation Date Hx Smoking Cessation No 06/14/24 10:35 Counseling Hematologic Medial History Hematologic Hx - retort condenser attendant: Hematologic Medical Hx - hoisting engineer Hx of Blood Transfusion No 06/14/24 10:35 Hx of Transfusion in last 3 No 06/14/24 10:35 Months Date of Last Transfusion (if within last 3 months) Ever experience any problems No 06/14/24 10:35 with transfusion(s)? Specify any problems Hx of Preganancy in last 3 No 06/14/24 10:35 Months Nurse Filling Out Transfusion VCHRISTIN 06/14/24 10:35 & Questions: Date: 06/14/24 06/14/24 10:35 Time: 10:37 06/14/24 10:35 Patient unable to answer at this time (ie. confused, unrespo /Reproduction History /Reproductive History - retort condenser attendant: /Reproductive Hx- retort condenser attendant Hx Now No 06/14/24 10:35 Gestational Age (in weeks): EDC: Hx Hx Para Hx Section SAB No 06/14/24 10:35 [facility] Medical History (Updated 06/14/24 @ 10:35 by Dagmar Walker) Post-menopausal Diabetes Thyroid disease Factor 5 Leiden mutation, heterozygous History of IBS CPAP (continuous positive airway pressure) dependence Asthma COPD (chronic obstructive pulmonary disease) Shortness of breath on exertion History of edema History of irregular heartbeat 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 Wears glasses Wears dentures History of hiatal hernia Gastric reflux Smoker Chronic cough On home oxygen therapy Sleep apnea History of echocardiogram Cardiology follow-up encounter Lumbar degenerative disc disease Dominguez's cyst of knee Vitamin D deficiency Pre-diabetes Cholecystectomy planned Swine flu Essential hypertension IBS (irritable bowel syndrome) Meniere disease Depression Anxiety GERD (gastroesophageal reflux disease) Hyperthyroidism Hypertension Sinus tachycardia Tobacco abuse Paroxysmal SVT (supraventricular tachycardia) Premature ventricular contraction Premature atrial contractions Home Medications ?Medication ?Instructions ?Recorded ?Last Taken ?Type levothyroxine 150 mcg tablet 150 mcg PO DAILY 06/24/21 Unknown History (Synthroid) nizatidine 150 mg capsule 150 mg PO BID 03/31/24 Unkno wn History dicyclomine 20 mg tablet 20 mg PO 4X/DAY PRN Abdomina l 05/31/24 Unknown Rx bloating/spasm #28 tabs blood sugar diagnostic (OneTouch 06/13/24 Unknown His tory Verio test strips) blood-glucose sensor (FreeStyle 06/13/24 Unknown Hist ory Faith 3 Plus Sensor device) Allergy/AdvReac Type Severity Reaction Status Date / Time codeine Allergy Rash Verified 06/14/24 10:23 hydrocodone bitartrate (From Allergy Rash Verified 06/14/24 10:23 Vicodin) methimazole (From Tapazole) Allergy Shortness Verified 06/14/24 10:23 of breath famotidine (From Pepcid) AdvReac Unknown Unknown Verified 06/14/24 10:23 estradiol (From CombiPatch) AdvReac myalgias, Verified 06/14/24 10:23 lip/mouth burn, SOB, nausea, dizziness methylprednisolone sodium AdvReac Other Verified 06/14/24 10:23 succinate (From Solu-Medrol) norethindrone (From AdvReac myalgias, Verified 06/14/24 10:23 CombiPatch) lip/mouth burn, SOB, nausea, dizziness oxycodone HCl (From Percocet) AdvReac Nausea/Vom/ Verified 06/14/24 10:23 Diarrhea cyp 2019 AdvReac Intermediate unknown Uncoded 05/09/24 13:31 CYP2B6 AdvReac Unknown unknown Uncoded 05/09/24 13:31 Family History Father CAD (coronary artery disease) Hypertension Myocardial infarction, Onset Age: 66 Hx of CABG Surgical History History of left oophorectomy History of tubal ligation History of cholecystectomy Social History Smoking Status: Heavy Smoker (>10/day) alcohol intake: never substance use type: does not use caffeine: No Audit: Pertinent Findings Pertinent Findings EKG Perinent findings: May 12, 2024. Sinus tachycardia [address] abnormality. Pulmonary function results/spirometer pertinent findings: Chest x-ray. May 31, 2024. No acute cardiopulmonary process identified. Recommendation Anesthesia Recommendation Anesthesia recommendation: F/U recommended (Recheck potassium on or the day before surgery.)
[2024-06-19 07:08] VITALS: BP 154/97; PULSE 105; RESP 18; TEMP 36.3; O2SAT 93; BMI 40.4
--- NOTE | 2024-06-19 07:09 | HP.PCM_ITS ---
HPI - General General Date of Admission: 06/19/24 Date of Service: 06/19/24 Chief Complaint: GERD HPI Narrative JAZLYN HINES, is a 58 F who presents for the endoscopic evaluation of worsening GERD. Pt has a long hx of acid reflux. Every time she tries a PPI she will get a leg swelling so she saw a genetic pharmacist and they told her to take nizatidine. SHe did pick this up from the pharmacist but has never tried it as she is nervous. SHe is here today because her pain is getting worse and she feels she needs a scope. Foods that trigger her reflux symptoms included diet and spicy foods. She has been having issues with PNA and was told it could be from aspiration of reflux. Her last EGD was about [address] Hernandez. She does have IBS type symptoms with alternating bowels. SHe has a bm once daily. These symptoms are tolerable to her. 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 On home oxygen therapy Sleep apnea Lumbar degenerative disc disease Dominguez's cyst of knee Vitamin D deficiency Acquired hypothyroidism Essential hypertension IBS (irritable bowel syndrome) Meniere disease Depression Anxiety Hyperthyroidism Sinus tachycardia Paroxysmal SVT (supraventricular tachycardia) Premature ventricular contraction Premature atrial contractions Home Medications ?Medication ?Instructions ?Recorded ?Last Taken ?Type nizatidine 150 mg capsule 150 mg PO BID 03/31/24 Unkno wn History blood sugar diagnostic (OneTouch 06/13/24 Unknown His tory Verio test strips) blood-glucose sensor (FreeStyle 06/13/[address] Faith 3 Plus Sensor device) alprazolam 1 mg tablet 1 mg PO TID PRN 06/16/24 Unk nown History cholecalciferol (vitamin D3) 25 25 mcg PO QDAY 5 Unknown History mcg (1,000 unit) capsule dicyclomine 10 mg capsule 10 mg PO TID PRN 06/16/24 Un known History drospirenone (contraceptive) 4 mg 4 mg PO QDAY contrac eptive 06/16/24 Unknown History (28) tablet (Slynd) levothyroxine 150 mcg tablet 150 mcg PO DAILY 06/16/24 Unknown History (Synthroid) sucralfate 1 gram tablet PO 4XD 06/16/24 Unknown Hist ory Allergy/AdvReac Type Severity Reaction Status Date / Time codeine Allergy Rash Verified 06/19/24 06:52 hydrocodone bitartrate (From Allergy Rash Verified 06/19/24 06:52 Vicodin) methimazole (From Tapazole) Allergy Shortness Verified 06/19/24 06:52 of breath metformin AdvReac Intermediate myalgias Verified 06/19/24 06:52 famotidine (From Pepcid) AdvReac Unknown Unknown Verified 06/19/24 06:52 estradiol (From CombiPatch) AdvReac myalgias, Verified 06/19/24 06:52 lip/mouth burn, SOB, nausea, dizziness methylprednisolone sodium AdvReac Other Verified 06/19/24 06:52 succinate (From Solu-Medrol) norethindrone (From AdvReac myalgias, Verified 06/19/24 06:52 CombiPatch) lip/mouth burn, SOB, nausea, dizziness oxycodone HCl (From Percocet) AdvReac Nausea/Vom/ Verified 06/19/24 06:52 Diarrhea cyp 2019 AdvReac Intermediate unknown Uncoded 05/09/24 13:31 CYP2B6 AdvReac Unknown unknown Uncoded 05/09/24 13:31 Family History Father CAD (coronary artery disease) Hypertension Myocardial infarction, Onset Age: 66 Hx of CABG Colon cancer Diabetes Mother CVA (cerebral vascular accident) Diabetes Sister Thyroid disorder Surgical History Hx of radioactive iodine thyroid ablation History of left oophorectomy History of tubal ligation History of cholecystectomy Social History Smoking Status: Heavy Smoker (>10/day) alcohol intake: never substance use type: does not use caffeine: No ROS Constitutional Constitutional: Denies fatigue, fever(s), poor appetite, weight gain or weight loss Gastrointestinal Gastrointestinal: Denies belching, bloating, change in bowel habits, change in stool character, chewing difficulty, coffee ground emesis, constipation, cramping, diarrhea, dyspepsia, dysphagia, early satiety, excessive flatus, fecal incontinence, heartburn, hematemesis, hematochezia, hemorrhoids, loose stools, melena, nausea, odynophagia, rectal bleeding, tenesmus, vomiting or weight changes Physical Exam Const alert, oriented x3, no apparent distress and healthy appearing General Appearance: cooperative GI normal to inspection, nondistended, normoactive bowel sounds, soft to palpation, non-tender and non-distended Percussion: normal to percussion Rectal Exam: deferred Results Lab / Micro Data 06/19/24 07:00 Assessment & Plan Assessment/Plan (1) GERD (gastroesophageal reflux disease): PLAN: Assessment and Plan Assessment and Plan (1) GERD (gastroesophageal reflux disease): Status: Chronic Plan: THis is a 58 yo female pt here today for establishment with [facility]. She has a long a hx of acid reflux with last scope four years ago. She is unable to take PPIs due to leg swelling. She will need to undergo EGD to assess her GI tract for gastritis, esophagitis or ulcers. Prescribed voquenza for her to try as it has a different mechanism of action as PPIs and she may not have a reaction to it. She is agreeable to this. -EGD -Start voquenza Medications: New vonoprazan 20 mg PO QDAY 30 tabs 3RF
--- NOTE | 2024-06-19 07:15 | IMM_PTH ---
PATIENT: JAZLYN HINES LOC: EN U#:[id number] AGE/SX: 58/F ROOM: RE06/19/[address]: Dr. Ti Martinez DO : 1965 BED: DIS: 06/19/2024 SPEC #: [id number] RECD: 06/19/24 10:09 STATUS: CARRIE KIM #: [id number] TROY: 06/19/24 07:[address]: Ti Martinez DEPT: IMMUNOHISTOCHEMISTRY RECD BY: Douglas Bailey ENTERED: 06/19/24 10:09 SP TYPE: IMMUNO OTHR DR: Dr. Freddy Dee MD Tissues: B - Gastric mucous membrane Procedures: H Pylori (initial) PHYSICIAN & INSTITUTION [place] [id number] SPECIMEN INFORMATION: Tissue Source: B- Gastric body biopsy Clinical Info: GERD Specimen Number: [id number] CPT code: 02423 METHODOLOGY: Deparaffinized sections of prefer/formalin-fixed tissue or PAP/DQ stained slides are incubated with monoclonal/polyclonal antibodies/oligonucleotide probes. Localization is made via biotin free immunoperoxidase method. Appropriate controls are performed and reacted as expected. Results on target cell population are indicated in the following table: RESULTS: ANTIBODY / CLONE RESULT Block B H Pylori (polyclonal) positive These tests were developed and their performance characteristics determined by [facility]. They may not have been cleared or approved by the U.[place]. Food and Drug Administration. The FDA has determined that such clearance or approval is not necessary. The above immunohistochemical/dualISH markers are ordered and reviewed by the Pathologist. INTERPRETATION: B. Gastric body, biopsy: Positive for Helicobacter pylori organisms. 06/20/2024
--- NOTE | 2024-06-19 07:15 | EGD_PTH ---
PATIENT: JAZLYN HINES LOC: EN U#:[id number] AGE/SX: 58/F ROOM: RE06/19/[address]: Dr. Ti Martinez DO : 1965 BED: DIS: 06/19/2024 SPEC #: [id number] RECD: 06/19/24 09:31 STATUS: CARRIE KIM #: [id number] TROY: 06/19/24 07:[address]: Ti Martinez DEPT: SURGICAL PATHOLOGY RECD BY: Elliott Erickson ENTERED: 06/19/24 10:13 SP TYPE: EGD BIOPSY LIZABETH DR: Dr. Freddy Dee MD Tissues: A - Esophagus, NOS B - Gastric mucous membrane C - Esophagus, NOS Procedures: Special Stain Group I Surgery Specimen Level IV Alcian Blue/PAS (control) HEADER OPERATION: EGD, biopsy PRE-OP DIAGNOSIS: GERD TISSUE SUBMITTED: A- Distal esophagus biopsy, B- Gastric body biopsy, C- Proximal esophagus biopsy MICROSCOPIC DIAGNOSIS A. Distal esophagus, biopsy: Fragments of gastroesophageal mucosa with chronic inflammation. Intestinal metaplasia (goblet cell metaplasia) not identified. See comment. B. Gastric body, biopsy: Moderate chronic active gastritis. See comment. C. Proximal esophagus, biopsy: Fragments of gastroesophageal mucosa with chronic inflammation. Intestinal metaplasia (goblet cell metaplasia) not identified. See comment. 06/20/2024 COMMENT A. Alcian blue/PAS stain with matched control is used in the evaluation of the specimen. The specimen predominantly consists of gastric mucosa. B. The results of immunohistochemistry for Helicobacter pylori will be reported separately ([id number]). C. Alcian blue/PAS stain with matched control is used in the evaluation of the specimen. MICROSCOPIC DESCRIPTION Slides are reviewed. GROSS DESCRIPTION A. Received in fixative is one container labeled with the patient's name and designated Distal esophagus biopsy. The specimen consists of multiple irregular fragments of light oquendo soft tissue that in aggregate measure 1 x 0.5 x 0.1 cm. The specimen is totally submitted in one cassette. B. Received in fixative is one container labeled with the patient's name and designated Gastric body biopsy. The specimen consists of two irregular fragments of light oquendo soft tissue that in aggregate measure 0.9 x 0.6 x 0.1 cm. The specimen is totally submitted in one cassette. C. Received in fixative is one container labeled with the patient's name and designated Proximal esophagus biopsy. The specimen consists of two irregular fragments of light oquendo soft tissue that in aggregate measure 0.6 x 0.2 x 0.1 cm. The specimen is totally submitted in one cassette. 06/19/2024 TC:3 CPT:79502g4,35552o9
[2024-06-19 07:27] LABS: Potassium 3.5 mmol/L (3.5-5.1)
--- NOTE | 2024-06-19 07:53 | PCM.PRE.AN2 ---
ASA Classification* ASA Classification ASA Classification: 3 Assessment & Plan Anesthesia* Anesthesia Assessment Anesthesia Assessment: Discussed sedation and/or anesthesia options, risks, benefits, and alternatives with patient/parents/legal guardian/POA. Questions invited. The patient/parents/legal guardian/POA seems to understand and agrees to proceed with anesthesia plan. Reviewed the physical assessment, medical history, allergy history and patient home medications list prior to surgery/procedure/anesthetic and documented any changes. Performed airway and anesthesia risk assessments. Procedural Plan Add'l anesthesia plan details: patient with recent PNA and covid. reports she uses oxygen at night at home, spo2 92-98% per pt. smoker. high risk for resp issues after procedure. we discussed plan to keep her on the business applications analyst side for anesthesia and extensively discussed risks of awareness. pt reports she would rather be a little business applications analyst than too deep. Anesthesia Type Anesthesia Type: MAC History Source History Obtained from:: Patient and Chart Anesthesia Focused Assessment* Temperature: 97.4 F Pulse Rate: 105 Blood Pressure: 154/97 Respiratory Rate: 18 Pulse Ox: 93 Oxygen Delivery Method: Room Air Airway Assessment Mouth opens: 2 cm Mallampati Score: II Teeth Condition: Dentures, Lower and Upper Neck Range of motion (ROM): Full ROM Focused Labs Anesthesia Preop lab: CBC WBC 13.5 K/mm3 (4.4-11.0) H 05/31/24 01:55 05/31/24 RBC 5.07 M/mm3 (4.2-5.4) 05/31/24 01:55 05/31/24 Hgb 16.1 g/dL (12.0-15.0) H 05/31/24 01:55 05/31/24 Hct 48.7 % (37-47) H 05/31/24 01:55 05/31/24 Plt Count 299 K/mm3 (150-450) 05/31/24 01:55 05/31/24 CHEMISTRY Potassium 3.5 mmol/L (3.5-5.1) 06/19/24 07:00 06/19/24 Sodium 137 mmol/L (136-145) 05/31/24 01:55 05/31/24 Magnesium 2.3 mg/dL (1.6-2.6) 05/31/24 01:55 05/31/24 Phosphorus 2.8 mg/dL (2.5-4.9) 05/13/20 17:45 05/13/20 BUN 10 mg/dL (7-18) 05/31/24 01:55 05/31/24 Creatinine 0.80 mg/dL (0.55-1.02) 05/31/24 01:55 05/31/24 Glucose 132 mg/dL (74-106) H 05/31/24 01:55 05/31/24 POC Glucose 122 mg/dL (70-110) H 10/17/14 20:39 10/17/14 TSH 1.780 uIU/mL (0.358-3.740) 05/31/24 01:55 05/31/24 COAG PT 13.2 SECONDS (11.7-14.9) 10/17/14 20:30 10/17/14 Pre-Assessment Diagnosis/Proposed Procedure Planned Operative Procedure(s): EGD Anesthesia History 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 When Was Last Pacemaker Check QUESTION #4 FULL TEXT: You/Your Family Experience fever (hyperthermia) with Anesthesia Any additional information?: Yes Any Problems With Anesthesia: Yes (patient reports she takes a very long time to wake up sometimes after) Cholinesterase deficiency: No You/your family experience fever (hyperthermia) with anesthesia: No Last Oral Intake Last Oral intake: Last Oral Intake NPO since 20:00 06/19/24 07:08 Meds taken in AM with sips of No 06/19/24 07:08 water? Meds patient instructed to take am of surgery PONV PONV - commercial journeyman electrician: PONV - commercial journeyman electrician Female Yes 06/14/24 10:35 HX of Motion Sickness No 06/14/24 10:35 HX of N/V After Surgery No 06/14/24 10:35 Non-Smoker No 06/14/24 10:35 Duration of Surgery greater No 06/14/24 10:35 than 60 minutes Number of Risk Factors 1 06/14/24 10:35 PONV Score Low Risk 06/14/24 10:35 Height & Weight Height & Weight: Anesthesia: Height & Weight Height 5 ft 1 in 06/19/24 07:08 Weight: 97 kg 06/19/24 07:08 Body Mass Index (BMI) 40.4 06/19/24 07:08 Respiratory Assessment Respiratory Assessment - commercial journeyman electrician: Respiratory Tract Infection Hx - commercial journeyman electrician Hx Respiratory Tract Infection No 06/14/24 10:35 STOP Sleep Apnea STOP Sleep Apnea - commercial journeyman electrician: STOP Sleep Apnea - commercial journeyman electrician Hx Hypertension No 06/14/24 10:35 Hx Sleep Apnea Yes: WEARS 2L 02 WHILE 06/14/24 10:35 SLEEPING CPAP No 06/14/24 10:35 BIPAP No 06/14/24 10:35 Do you snore loudly (louder than talking or can be heard Do you often feel tired/ fatigued/ sleepy during daytime? Has anyone observed you stop breathing during sleep? STOP Results Positive 06/14/24 10:35 QUESTION #5 FULL TEXT : Do you snore loudly (louder than talking or can be heard through closed doors)? 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 Specify any problems Hx of Preganancy in last 3 No 06/14/24 10:35 Months Nurse Filling Out Transfusion VCHRISTIN 06/14/24 10:35 & Questions: Date: 06/14/24 06/14/24 10:35 Time: 10:37 06/14/24 10:35 Patient unable to answer at this time (ie. confused, unrespo /Reproduction History /Reproductive History - commercial journeyman electrician: /Reproductive Hx- commercial journeyman electrician Hx Now No 06/14/24 10:35 Gestational Age (in weeks): EDC: Hx Hx Para Hx Section SAB No 06/14/24 10:35 FOR[facility]LY [facility] Medical History Diabetes Factor 5 Leiden mutation, heterozygous CPAP (continuous positive airway pressure) dependence Asthma COPD (chronic obstructive pulmonary disease) Shortness of breath on exertion Fatigue Nicotine dependence, cigarettes, uncomplicated Abnormal chest CT GERD (gastroesophageal reflux disease) 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 On home oxygen therapy Sleep apnea Lumbar degenerative disc disease Dominguez's cyst of knee Vitamin D deficiency Acquired hypothyroidism Essential hypertension IBS (irritable bowel syndrome) Meniere disease Depression Anxiety Hyperthyroidism Sinus tachycardia Paroxysmal SVT (supraventricular tachycardia) Premature ventricular contraction Premature atrial contractions Home Medications ?Medication ?Instructions ?Recorded ?Last Taken ?Type nizatidine 150 mg capsule 150 mg PO BID 03/31/24 Unknown History blood sugar diagnostic (OneTouch 06/13/24 Unknown History Verio test strips) blood-glucose sensor (FreeStyle 06/13/24 Unknown History Faith 3 Plus Sensor device) alprazolam 1 mg tablet 1 mg PO TID PRN 06/16/24 Unknown History cholecalciferol (vitamin D3) 25 25 mcg PO QDAY 06/16/24 Unknown History mcg (1,000 unit) capsule dicyclomine 10 mg capsule 10 mg PO TID PRN 06/16/24 Unknown History drospirenone (contraceptive) 4 mg 4 mg PO QDAY contraceptive 06/16/24 Unknown History (28) tablet (Slynd) levothyroxine 150 mcg tablet 150 mcg PO DAILY 06/16/24 Unknown History (Synthroid) sucralfate 1 gram tablet PO 4XD 06/16/24 Unknown History Allergy/AdvReac Type Severity Reaction Status Date / Time codeine Allergy Rash Verified 06/19/24 06:52 hydrocodone bitartrate (From Allergy Rash Verified 06/19/24 06:52 Vicodin) methimazole (From Tapazole) Allergy Shortness Verified 06/19/24 06:52 of breath metformin AdvReac Intermediate myalgias Verified 06/19/24 06:52 famotidine (From Pepcid) AdvReac Unknown Unknown Verified 06/19/24 06:52 estradiol (From CombiPatch) AdvReac myalgias, Verified 06/19/24 06:52 lip/mouth burn, SOB, nausea, dizziness methylprednisolone sodium AdvReac Other Verified 06/19/24 06:52 succinate (From Solu-Medrol) norethindrone (From AdvReac myalgias, Verified 06/19/24 06:52 CombiPatch) lip/mouth burn, SOB, nausea, dizziness oxycodone HCl (From Percocet) AdvReac Nausea/Vom/ Verified 06/19/24 06:52 Diarrhea cyp 2019 AdvReac Intermediate unknown Uncoded 05/09/24 13:31 CYP2B6 AdvReac Unknown unknown Uncoded 05/09/24 13:31 Family History Father CAD (coronary artery disease) Hypertension Myocardial infarction, Onset Age: 66 Hx of CABG Colon cancer Diabetes Mother CVA (cerebral vascular accident) Diabetes Sister Thyroid disorder Surgical History Hx of radioactive iodine thyroid ablation History of left oophorectomy History of tubal ligation History of cholecystectomy Social History Smoking Status: Heavy Smoker (>10/day) alcohol intake: never substance use type: does not use caffeine: No Review of Systems (Anesthesia) ROS Narrative System reviewed and no additional complaints, except as documented. Physical Exam Const alert and oriented x3 HEENT Teeth and Gingiva: dentures Neck full ROM Resp normal respiratory effort Resp Narrative: crackles in lower lungs, slight wheezing
[2024-06-19 07:57] VITALS: BP 154/97; PULSE 105; RESP 18; TEMP 36.3; O2SAT 93
[2024-06-19 08:25] LABS: Bedside Glucose 107 mg/dL (74-106)
[2024-06-19 08:35] VITALS: BP 127/94; BP 154/97; PULSE 135; RESP 20; TEMP 36.2; O2SAT 96
--- NOTE | 2024-06-19 08:35 | OP.EGD_ITS ---
Patient Name: Maribell Garzon Procedure Date: 06/19/2024 7:16 AM Date of : 1965 Age: 58 Procedure: Upper GI endoscopy Indications: Heartburn Providers: Ti Martinez DO Referring MD: Freddy Dee Medicines: Monitored Anesthesia Care Patient Profile: This is a 58 year old female. Refer to note in patient chart for documentation of history and physical. Patient has symptoms of chronic cough and chronic heartburn. Complications: No immediate complications. Procedure: Pre-Anesthesia Assessment: - Prior to the procedure, a History and Physical was performed, and patient medications and allergies were reviewed. The patient is competent. The risks and benefits of the procedure and the sedation options and risks were discussed with the patient. All questions were answered and informed consent was obtained. Patient identification and proposed procedure were verified by the physician in the pre-procedure area. Mental Status Examination: alert and oriented. Airway Examination: normal oropharyngeal airway and neck mobility. Respiratory Examination: clear to auscultation. CV Examination: normal. ASA Grade Assessment: II - A patient with mild systemic disease. After reviewing the risks and benefits, the patient was deemed in satisfactory condition to undergo the procedure. The anesthesia plan was to use monitored anesthesia care (MAC). Immediately prior to administration of medications, the patient was re-assessed for adequacy to receive sedatives. The heart rate, respiratory rate, oxygen saturations, blood pressure, adequacy of pulmonary ventilation, and response to care were monitored throughout the procedure. The physical status of the patient was re-assessed after the procedure. After obtaining informed consent, the endoscope was passed under direct vision. Throughout the procedure, the patient's blood pressure, pulse, and oxygen saturations were monitored continuously. The gastroscope was introduced through the mouth, and advanced to the second part of duodenum. The upper GI endoscopy was accomplished without difficulty. The patient tolerated the procedure well. Scope In: 8:23:26 AM Scope Out: 8:28:00 AM Total Procedure Duration Time 0 hours 4 minutes 34 seconds Findings: LA Grade B (one or more mucosal breaks greater than 5 mm, not extending between the tops of two mucosal folds) esophagitis with no bleeding was found 35 to 39 cm from the incisors. Biopsies were taken with a cold forceps for histology. Verification of patient identification for the specimen was done. Estimated blood loss was minimal. A single area of ectopic gastric mucosa was found in the upper third of the esophagus, 22 cm from the incisors. Biopsies were taken with a cold forceps for histology. Verification of patient identification for the specimen was done. Estimated blood loss was minimal. A few dispersed 5 mm erosions with no stigmata of recent bleeding were found in the gastric body and in the gastric antrum. Biopsies were taken with a cold forceps for histology. Verification of patient identification for the specimen was done. Biopsies were taken with a cold forceps for Helicobacter pylori testing. Verification of patient identification for the specimen was done. Estimated blood loss was minimal. Moderate portal hypertensive gastropathy was found in the gastric body. Biopsies were taken with a cold forceps for histology. Verification of patient identification for the specimen was done. Estimated blood loss was minimal. Patchy mildly erythematous mucosa without active bleeding and with no stigmata of bleeding was found in the duodenal bulb and in the first portion of the duodenum. Impression: - LA Grade B reflux esophagitis with no bleeding. Biopsied. - Ectopic gastric mucosa in the upper third of the esophagus. Biopsied. - Erosive gastropathy with no stigmata of recent bleeding. Biopsied. - Portal hypertensive gastropathy. Biopsied. - Erythematous duodenopathy. Recommendation: - Discharge patient to home. - Resume previous diet. - Continue present medications. - Await pathology results. Procedure Code(s): --- Professional --- 08440, Esophagogastroduodenoscopy, flexible, transoral; with biopsy, single or multiple CPT copyright 2021 [employer]. All rights reserved. The codes documented in this report are preliminary and upon radio news anchor review may be revised to meet current compliance requirements. Ti Martinez DO 06/19/2024 8:35:32 AM This report has been signed electronically. Number of Addenda: 0 Note Initiated On: 06/19/2024 7:16 AM
--- NOTE | 2024-06-19 08:36 | OP.CCLET_ITS ---
06/19/2024 Freddy Dee Re : Upper GI endoscopy procedure for Maribell Garzon Dear Luiz This procedure was performed on Wednesday, June 19, 2024. My impressions and recommendations are as follows: Impressions : - LA Grade B reflux esophagitis with no bleeding. Biopsied. - Ectopic gastric mucosa in the upper third of the esophagus. Biopsied. - Erosive gastropathy with no stigmata of recent bleeding. Biopsied. - Portal hypertensive gastropathy. Biopsied. - Erythematous duodenopathy. Recommendations : - Discharge patient to home. - Resume previous diet. - Continue present medications. - Await pathology results. My findings are described in the full procedure note, which is enclosed. If I can be of further assistance, please feel free to contact me at . Sincerely, Ti Martinez, 06/19/2024 8:35:32 AM This report has been signed electronically.
--- NOTE | 2024-06-19 08:39 | PCM.POST.ANE ---
Anesthesia: Postop Eval I Current Vital Signs Temperature: 97.2 F Pulse Rate: 107 Blood Pressure: 127/94 Respiratory Rate: 16 Pulse Ox: 98 Oxygen Delivery Method: Room Air Assessment Airway patent: Yes Spontaneous unlabored respirations: Yes Mental status: Awake and Calm (but w/profuse coughing d/t smoking hx) nausea: No Vomiting: No Anesthesia Complication: No Fluid Hydration Crystalloid volume administer (ml): 30 Total IV fluid infused: 30 Progress Note Anesthesia document: Postop Eval 1 completed: Yes
[2024-06-19 08:40] VITALS: BP 127/94; BP 129/90; BP 154/97; PULSE 107; PULSE 130; RESP 16; TEMP 36.2; O2SAT 94; O2SAT 98
[2024-06-19 08:45] VITALS: BP 109/68; BP 154/97; PULSE 95; RESP 16; TEMP 36.1
[2024-06-19 09:05] VITALS: BP 154/97
--- NOTE | 2024-06-19 09:11 | PCM.POSTANE2 ---
Anesthesia Postop Eval I Sum Postop Eval Completion status Anesthesia document: Postop Eval 1 completed: Yes Anesthesia Postop Eval I Summary Anesthesia Postop Eval I Summary: Anesthesia Postop Eval I: Assessment Summary Airway patent Yes 06/19/24 08:40 [email or web address] Spontaneous unlabored Yes 06/19/24 08:40 [email or web address] respirations Mental status Awake,Calm - but w 06/19/24 08:40 [email or web address] /profuse coughing d/t smoking hx nausea No 06/19/24 08:40 [email or web address] Vomiting No 06/19/24 08:40 [email or web address] Anesthesia Postop Eval I: Fluid Summary Crystalloid volume administer 30 06/19/24 08:40 [email or web address] (ml) Colloids volume administered ( ml) Blood Product volume administered (ml) Total IV fluid infused 30 06/19/24 08:40 [email or web address] Anesthesia Postop Eval I: Summary Notes Anesthesia Complication No 06/19/24 08:40 [email or web address] Anesthesia Complication Comment: Post-operative progress note Anesthesia: Postop Eval II Evaluation Mental status: Awake and Calm Pain Level: 2 nausea: No Vomiting: No Complications Anesthesia Complication: No
== END 2024-06-19 09:34 | disposition home or self-care (01) ==
LOC: EN 06:37 → AC 06:41
PROVIDERS: Anesthesiology; PCP Family Medicine; Referring Provider Family Medicine; Visit Provider Internal Medicine Gastroenterology
PROC: 0DJ08ZZ Inspection of Upper Intestinal Tract, Via Natural or Artificial Opening Endoscopic (ICD-10-PCS; CPT 43235; principal; 2024-06-19 07:10)
DX: K21.00 Gastro-esophageal reflux disease with esophagitis, without bleeding (principal); K76.6 Portal hypertension; J44.9 Chronic obstructive pulmonary disease, unspecified; E11.43 Type 2 diabetes mellitus with diabetic autonomic (poly)neuropathy; I10 Essential (primary) hypertension; E05.90 Thyrotoxicosis, unspecified without thyrotoxic crisis or storm; Z79.890 Hormone replacement therapy; K25.9 Gastric ulcer, unspecified as acute or chronic, without hemorrhage or perforation; K31.84 Gastroparesis; K29.50 Unspecified chronic gastritis without bleeding; F17.210 Nicotine dependence, cigarettes, uncomplicated
CPT/HCPCS: 43239; 82962; 84132; 88305; 88312; 88342; A4216; J2405

== ENCOUNTER 2024-07-03 23:50 | Emergency (ER) | payer MEDICAID, SELFPAY ==
[2024-07-03 23:51] VITALS: BP 174/102; PULSE 106; RESP 15; TEMP 36.4; O2SAT 93; BMI 39.2
[2024-07-04 00:49] VITALS: BP 150/86; PULSE 87; RESP 16; O2SAT 92
[2024-07-04 01:00] VITALS: BP 144/87; PULSE 83; RESP 18; O2SAT 97
--- NOTE | 2024-07-04 01:15 | EKG12_ITS ---
Test Reason : DYSRHYTHMIA Blood Pressure : */* mmHG Vent. Rate : 83 BPM Atrial Rate : 83 BPM P-R Int : 150 ms QRS Dur : 90 ms QT Int : 410 ms P-R-T Axes : 64 64 45 degrees QTcB Int : 481 ms Normal sinus rhythm Borderline Prolonged QT Borderline Abnormal ECG Confirmed by Oscar Wen ([id number]), visual effects editor DAVIDSON HENDRICKS ([id number]) on 07/04/2024 11:04:00 AM Referred By: Confirmed By: Oscar Wen
[2024-07-04 01:53] LABS: Absolute Lymphocyte Count 3.23 X10^3/uL (0.83-4.51); Absolute Neutrophil Count 6.1 X10^3/uL (2.0-7.7); Basophil# 0.08 X10^3/uL; Basophil% 0.8 % (0-1); Eosinophil# 0.15 X10^3/uL; Eosinophils% 1.4 % (0-5); Hematocrit 46.4 % (37-47); Hemoglobin 15.6 g/dL (12.0-15.0); Lymphocyte # 3.23 X10^3/ul (0.83-4.51); Mean Corp Hgb Conc 33.6 g/dL (32-36); Mean Corpuscular Volume 95.1 fL (81-99); Mean Platelet Vol. 10.2 fl (6.2-12.0); Monocyte# 0.82 X10^3/uL; Monocyte% 7.9 % (0-10); NRBC Flagged by Analyzer 0 % (0-5); Neutrophil # 6.11 X10^3/uL (2.7-7.7); Neutrophil % 58.5 % (47-70); Platelet Count 262 K/mm3 (150-450); RBC Distribution Width CV 12.5 % (11.6-14.6); RBC Distribution Width SD 44.2 fl (35.1-43.9); Red Blood Count 4.88 M/mm3 (4.2-5.4); White Blood Count 10.4 K/mm3 (4.4-11.0)
[2024-07-04 02:00] VITALS: BP 122/72; PULSE 80; RESP 16; O2SAT 92
[2024-07-04 02:27] LABS: Magnesium 2.1 mg/dL (1.5-2.2)
[2024-07-04 02:29] LABS: Anion Gap 12 (5-15); BUN 9 mg/dL (4-19); BUN/Creat Ratio 13.3 RATIO (10-20); Calcium,Total 9.1 mg/dL (7.6-11.0); Carbon Dioxide 21.7 mmol/L (21.0-32.0); Chloride 105 mmol/L (98-108); Creatinine, Serum 0.71 mg/dL (0.70-1.20); EST Glomerular Filtration Rate 99 (>60); Estimated Creatinine Clearance 90.56 ml/min (50-250); Glucose 104 mg/dL (70-99); Potassium 3.7 mmol/L (3.3-5.1); Sodium Level 139 mmol/L (133-145)
--- NOTE | 2024-07-04 02:51 | EDS_ITS ---
HPI History of Present Illness Chief Complaint: Palpitations Informant: patient Narrative Narrative: Patient is a 58-year-old female with past medical history of hypertension hypothyroidism and COPD. 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 She reports she was recently started on Voquezna triple pack and since using this new medication she has been feeling like her heart is racing and skipping beats. 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 On home oxygen therapy Sleep apnea Lumbar degenerative disc disease Dominguez's cyst of knee Vitamin D deficiency Acquired hypothyroidism Essential hypertension IBS (irritable bowel syndrome) Meniere disease Depression Anxiety Hyperthyroidism Sinus tachycardia Paroxysmal SVT (supraventricular tachycardia) Premature ventricular contraction Premature atrial contractions Home Medications ?Medication ?Instructions ?Recorded ?Last Taken ?Type blood sugar diagnostic (OneTouch 06/13/24 Unknown His tory Verio test strips) blood-glucose sensor (FreeStyle 06/13/24 Unknown [facility] [employer] Faith 3 Plus Sensor device) alprazolam 1 mg tablet 1 mg PO TID PRN 06/16/24 Unk nown History dicyclomine 10 mg capsule 10 mg PO TID PRN 06/16/24 Un known History drospirenone (contraceptive) 4 mg 4 mg PO QDAY contrac eptive 06/16/24 Unknown History (28) tablet (Slynd) levothyroxine 150 mcg tablet 150 mcg PO DAILY 06/16/24 Unknown History (Synthroid) sucralfate 1 gram tablet 1 g PO BID #20 tabs 06/27/24 Unknown Rx vonoprazan 20 mg-amoxicillin 500 1 pkg PO PER PKG DIR #112 pkgs 06/27/24 Unknown Rx mg-clarithromycin 500 mg combo pack (Voquezna Triple Eric) Allergy/AdvReac Type Severity Reaction Status Date / Time codeine Allergy Rash Verified 07/03/24 23:51 hydrocodone bitartrate (From Allergy Rash Verified 07/03/24 23:51 Vicodin) methimazole (From Tapazole) Allergy Shortness Verified 07/03/24 23:51 of breath metformin AdvReac Intermediate myalgias Verified 07/03/24 23:51 famotidine (From Pepcid) AdvReac Unknown Unknown Verified 07/03/24 23:51 estradiol (From CombiPatch) AdvReac myalgias, Verified 07/03/24 23:51 lip/mouth burn, SOB, nausea, dizziness methylprednisolone sodium AdvReac Other Verified 07/03/24 23:51 succinate (From Solu-Medrol) norethindrone (From AdvReac myalgias, Verified 07/03/24 23:51 CombiPatch) lip/mouth burn, SOB, nausea, dizziness oxycodone HCl (From Percocet) AdvReac Nausea/Vom/ Verified 07/03/24 23:51 Diarrhea cyp 2019 AdvReac Intermediate unknown Uncoded 06/27/24 14:36 Family History Father CAD (coronary artery disease) Hypertension Myocardial infarction, Onset Age: 66 Hx of CABG Colon cancer Diabetes Mother CVA (cerebral vascular accident) Diabetes Sister Thyroid disorder Surgical History Hx of radioactive iodine thyroid ablation History of left oophorectomy History of tubal ligation History of cholecystectomy Social History Smoking Status: Heavy Smoker (>10/day) alcohol intake: never substance use type: does not use caffeine: No ROS ROS ED Constitutional Constitutional ED: Denies chills or fever(s) Eyes Eyes: Denies change in vision ENT ENT ED: Denies sore throat Cardiovascular Cardiovascular: Reports palpitations and racing heartbeat; Denies chest pain Respiratory/Chest Respiratory/Chest: Denies cough or dyspnea Gastrointestinal Gastrointestinal: Denies abdominal pain, diarrhea, nausea or vomiting Genitourinary Genitourinary ED: Denies dysuria Musculoskeletal Musculoskeletal: Reports myalgias Integumentary Denies rash Neurologic Neurologic: Denies headache(s) Hematologic/Lymphatic Hematologic/Lymphatic: Denies easy bleeding or easy bruising EXAM Physical Exam Const Vital Signs: 07/03/24 23:51 07/04/24 00:30 07/04/24 00:49 Temperature 97.6 F L Temperature Source Temporal Pulse Rate 106 H 87 Respiratory Rate 15 16 Respiratory Effort Normal Blood Pressure 174/102 H 150/86 H Blood Pressure Mean 126 107 Pulse Ox 93 92 Oxygen Delivery Method Room Air Room Air 07/04/24 01:00 07/04/24 02:00 07/04/24 02:53 Temperature 97.6 F L Temperature Source Pulse Rate 83 80 79 Respiratory Rate 18 16 16 Respiratory Effort Blood Pressure 144/87 H 122/72 H 122/72 H Blood Pressure Mean 106 88 88 Pulse Ox 97 92 92 Oxygen Delivery Method Room Air Room Air Positive well nourished and well developed General Appearance ED: well developed; Negative for pallor HEENT HEENT Narrative: Normocephalic atraumatic Eyes PERRL and EOMs intact bilaterally General Eye ED: Negative for scleral icterus Neck supple and no JVD Chest Wall palpation of chest normal Resp normal respiratory effort and clear to auscultation bilaterally Cardio regular rate and regular rhythm Rate: other Other Details: Heart is regular rate and rhythm without murmurs rubs or gallops Radial and carotid pulses are equal and symmetric GI normal to inspection, nondistended, normoactive bowel sounds, non-tender, non- distended and no masses GI Narrative: No voluntary guarding or rigidity or pulsatile mass Auscultation: normoactive bowel sounds Palpation: soft Extremity normal to inspection Extremity Narrative: No asymmetric edema no pitting edema negative Homans' sign bilaterally Neuro oriented x3, CN's II-XII intact bilaterally and no sensory deficits noted Sensorium / Orientation: alert Motor Exam: strength 5/5 throughout Psych mental status grossly normal Skin no rashes or lesions noted General Skin Exam: Negative for jaundice or pallor MDM MDM MDM Narrative Medical decision making narrative: Patient arrived to the ER with stable vitals and in no acute respiratory distress. She reported palpitations which she described more as her heart racing and/or skipping beats. With potential for a true cardiac dysrhythmia such as A-fib a flutter or SVT or ventricular tachycardia she is placed on the monitor and an EKG was obtained. In order to rule out a potential cause such as acute blood loss anemia acute kidney injury thyroid dysfunction or clinically significant electrolyte abnormality basic blood work was obtained. Labs revealed no clinically significant findings and patient had no abnormal rhythm while on the bus monitor. Therefore at this time with overall negative workup no cardiac dysrhythmia noted in the ER and stable vitals there is no need for further evaluation and patient is otherwise safe for discharge History & Record Review Discussion w/independent historian: Patient Lab Data Attestation: I reviewed the patient's lab results. Labs: Laboratory Results - last 24 hr 07/04/24 01:35 WBC 10.4 RBC 4.88 Hgb 15.6 H Hct 46.4 MCV 95.1 MCH 32.0 MCHC 33.6 RDW Std Deviation 44.2 H RDW Coeff of Linette 12.5 Plt Count 262 MPV 10.2 Immature Gran % (Auto) 0.400 Neut % (Auto) 58.5 Lymph % (Auto) 31.0 Davie % (Auto) 7.9 Eos % (Auto) 1.4 Baso % (Auto) 0.8 Absolute Neuts (auto) 6.1 Absolute Lymphs (auto) 3.23 Nucleated RBC % 0 Sodium 139 Potassium 3.7 Chloride 105 Carbon Dioxide 21.7 Anion Gap 12 BUN 9 Creatinine 0.71 Estim Creat Clear Calc 90.56 Est GFR (MDRD) Non-Af 99 BUN/Creatinine Ratio 13.3 Glucose 104 H Calcium 9.1 Magnesium 2.1 TSH 1.110 Discharge Plan Triage Chief Complaint: Palpitations ED Provider: Bhupinder Fritz Dx/Rx/DC Orders Clinical Impression: Palpitations, Essential hypertension, COPD (chronic obstructive pulmonary disease), Hypothyroidism Instructions: ED Palpitations Prescriptions: No Action levothyroxine [Synthroid] 150 mcg tablet 150 mcg PO DAILY Rx Instructions: One tab daily except 1/2 tab Sat/Sun alprazolam 1 mg tablet 1 mg PO TID PRN Patient Comments: [NO ORIGINAL SIG] dicyclomine 10 mg capsule 10 mg PO TID PRN Slynd 4 mg (28) tablet 4 mg PO QDAY Patient Comments: [NO ORIGINAL SIG] sucralfate 1 gram tablet 1 g PO BID Qty: 20 2RF Voquezna Triple Eric 20-500-500 mg combo pack 1 pkg PO PER PKG DIR Qty: 112 0RF (DME) OneTouch Verio test strips Strip MISCELLANEOUS (DME) FreeStyle Faith 3 Plus Sensor Device MISCELLANEOUS QMONTH Primary Care Provider: Freddy Dee Referrals: Freddy Dee MD [Primary Care Provider] - Activity Restrictions/Additional Instructions: Your workup revealed no abnormal heart rhythm or clinically significant lab value changes that could cause your palpitations. As he only knew medication is the recent antibiotics from the ending machine operator this could be a cause for your symptoms. Please discuss with them about stopping this medication and return to the ER should you have any further concerns Print Language: Andorran Disposition Disposition: Home, Self Care Discharge Date/Time: 07/04/24 02:59
[2024-07-04 02:53] VITALS: BP 122/72; PULSE 79; RESP 16; TEMP 36.4; O2SAT 92
== END 2024-07-04 02:59 | disposition home or self-care (01) ==
PROVIDERS: Emergency Provider Emergency Medicine; PCP Family Medicine; Visit Provider Emergency Medicine
DX: R00.2 Palpitations (principal); D68.2 Hereditary deficiency of other clotting factors; J44.89 Other specified chronic obstructive pulmonary disease; E11.9 Type 2 diabetes mellitus without complications; E03.9 Hypothyroidism, unspecified; I10 Essential (primary) hypertension; K21.9 Gastro-esophageal reflux disease without esophagitis; M51.369 Other intervertebral disc degeneration, lumbar region without mention of lumbar back pain or lower extremity pain; E55.9 Vitamin D deficiency, unspecified; K58.9 Irritable bowel syndrome, unspecified; F32.A Depression, unspecified; F41.9 Anxiety disorder, unspecified; E05.90 Thyrotoxicosis, unspecified without thyrotoxic crisis or storm; Z79.899 Other long term (current) drug therapy; Z99.81 Dependence on supplemental oxygen; F17.210 Nicotine dependence, cigarettes, uncomplicated
CPT/HCPCS: 80048; 83735; 84443; 85025; 93005; 99282

== ENCOUNTER → 2024-07-05 | Outpatient (CLI) | payer MEDICAID, SELFPAY ==
--- NOTE | 2024-07-05 07:27 | US_ITS ---
PROCEDURE: ABD LIMITED W/ ELASTOGRAPHY REASON FOR EXAM: FATTY LIVER COMPARISON: None. TECHNIQUE: Right upper quadrant abdominal ultrasound. Marky ElastQ Imaging shear wave elastography for non-invasive assessment of liver tissue stiffness. Marky EPIQ Elite. FINDINGS: LIVER: Size: Unremarkable Length: 15.9 cm Echotexture: Diffusely echogenic suggesting fatty infiltration Contour: Normal Lesions: None identified Elastography: EQI Med: 7.8 kPa EQI Med Jameson: 1.6 m/s IQR/Med: 13.5 %* GALLBLADDER: Surgically absent. COMMON BILE DUCT: Normal it measures 3.9 mm. PANCREAS: Normal Visualized portions of the right kidney are unremarkable. 1 cm x 0.9 cm x 1.2 cm right renal cyst. No right upper quadrant ascites. US/ABD Limited w/ Elastography IMPRESSION: MODERATE HEPATIC FIBROSIS Right renal cyst. Fatty infiltration of the liver. Reference Values: SRU <1.37 m/s (5.7kPa): No to mild fibrosis 1.37 m/s - 2.2 m/s: Moderate to severe fibrosis >2.2 m/s (15kPa): Significant fibrosis / cirrhosis METAVIR Score F2 or higher: 1.34 m/s (5.7kPa) F3 or higher: 1.55 m/s (7.3kPa) F4: 1.80 m/s (10kPa) * If the IQR/Med is >30%, the variance in the measurements is a large and the a ccuracy of the measurement may be in question. Reading Location: [place] [id number]
== END | disposition home or self-care (01) ==
LOC: US 07:24
PROVIDERS: PCP Family Medicine; Referring Provider Family Medicine; Visit Provider Family Medicine
DX: K76.0 Fatty (change of) liver, not elsewhere classified (principal); K76.6 Portal hypertension; K31.89 Other diseases of stomach and duodenum
CPT/HCPCS: 76705; 76981

== ENCOUNTER 2024-07-06 20:38 | Emergency (ER) | payer MEDICAID, SELFPAY ==
[2024-07-06 20:38] VITALS: BP 187/108; PULSE 112; RESP 17; TEMP 37; O2SAT 98; BMI 38.5
[2024-07-06] MEDS: DiphenhydrAMINE 50 MG/ML Syringe 25 MG IV (23:05)
[2024-07-06] MEDS: 0.9% Normal Saline (1000mL) 1,000 ML 999 ML IV (23:05)
[2024-07-06 23:08] VITALS: BP 153/88; PULSE 72; RESP 16; O2SAT 98
[2024-07-06] MEDS: Famotidine 200 MG/20 ML MDV 20 MG in 0.9% Normal Saline (Pres. free 8 ML 300 MG IV ×2 (23:12→23:16)
--- NOTE | 2024-07-06 23:52 | EDS_ITS ---
HPI History of Present Illness Chief Complaint: General Illness Informant: patient Narrative Narrative: Patient is a 58-year-old female with past medical history of COPD hypertension and GERD. Her GI physician recently started her on Vonoprazan for her GERD as she cannot tolerate other medications. However since taking it she has had sensation of increased palpitations and feeling unwell and today reports noticing hives across her body. She states she took Benadryl but still feels a burning sensation. She also denies any new exposure other than the new GERD medication and states no one else at home has the rash. 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 On home oxygen therapy Sleep apnea Lumbar degenerative disc disease Dominguez's cyst of knee Vitamin D deficiency Acquired hypothyroidism Essential hypertension IBS (irritable bowel syndrome) Meniere disease Depression Anxiety Hyperthyroidism Sinus tachycardia Paroxysmal SVT (supraventricular tachycardia) Premature ventricular contraction Premature atrial contractions Home Medications ?Medication ?Instructions ?Recorded ?Last Taken ?Type blood sugar diagnostic (OneTouch 06/13/24 Unknown His tory Verio test strips) blood-glucose sensor (FreeStyle 06/13/24 Unknown [facility] [employer] Faith 3 Plus Sensor device) alprazolam 1 mg tablet 1 mg PO TID PRN 06/16/24 Unk nown History dicyclomine 10 mg capsule 10 mg PO TID PRN 06/16/24 Un known History drospirenone (contraceptive) 4 mg 4 mg PO QDAY contrac eptive 06/16/24 Unknown History (28) tablet (Slynd) levothyroxine 150 mcg tablet 150 mcg PO DAILY 06/16/24 Unknown History (Synthroid) sucralfate 1 gram tablet 1 g PO BID #20 tabs 06/27/24 Unknown Rx vonoprazan 20 mg-amoxicillin 500 1 pkg PO PER PKG DIR #112 pkgs 06/27/24 Unknown Rx mg-clarithromycin 500 mg combo pack (Voquezna Triple Eric) Allergy/AdvReac Type Severity Reaction Status Date / Time codeine Allergy Rash Verified 07/06/24 20:39 hydrocodone bitartrate (From Allergy Rash Verified 07/06/24 20:39 Vicodin) methimazole (From Tapazole) Allergy Shortness Verified 07/06/24 20:39 of breath metformin AdvReac Intermediate myalgias Verified 07/06/24 20:39 famotidine (From Pepcid) AdvReac Unknown Unknown Verified 07/06/24 20:39 estradiol (From CombiPatch) AdvReac myalgias, Verified 07/06/24 20:39 lip/mouth burn, SOB, nausea, dizziness methylprednisolone sodium AdvReac Other Verified 07/06/24 20:39 succinate (From Solu-Medrol) norethindrone (From AdvReac myalgias, Verified 07/06/24 20:39 CombiPatch) lip/mouth burn, SOB, nausea, dizziness oxycodone HCl (From Percocet) AdvReac Nausea/Vom/ Verified 07/06/24 20:39 Diarrhea cyp 2019 AdvReac Intermediate unknown Uncoded 06/27/24 14:36 Family History Father CAD (coronary artery disease) Hypertension Myocardial infarction, Onset Age: 66 Hx of CABG Colon cancer Diabetes Mother CVA (cerebral vascular accident) Diabetes Sister Thyroid disorder Surgical History Hx of radioactive iodine thyroid ablation History of left oophorectomy History of tubal ligation History of cholecystectomy Social History Smoking Status: Heavy Smoker (>10/day) alcohol intake: never substance use type: does not use caffeine: No ROS ROS ED Constitutional Constitutional ED: Denies chills or fever(s) Eyes Eyes: Denies blurry vision or change in vision ENT ENT ED: Denies sore throat Cardiovascular Cardiovascular: Reports palpitations; Denies chest pain or racing heartbeat Respiratory/Chest Respiratory/Chest: Denies cough or dyspnea Gastrointestinal Gastrointestinal: Denies abdominal pain, diarrhea, nausea or vomiting Genitourinary Genitourinary ED: Denies dysuria Musculoskeletal Musculoskeletal: Denies myalgias Integumentary Reports rash Neurologic Neurologic: Denies headache(s) Hematologic/Lymphatic Hematologic/Lymphatic: Denies easy bleeding or easy bruising Allergic/Immunologic Allergic/Immunologic ED: Reports urticaria; Denies mouth swelling or tongue swelling EXAM Physical Exam Const Vital Signs: 07/06/24 20:38 07/06/24 23:08 07/06/24 23:08 Temperature 98.6 F Temperature Source Oral Pulse Rate 112 H 72 Respiratory Rate 17 16 Respiratory Effort Normal Short of Breath Respiratory Pattern Normal Blood Pressure 187/108 H 153/88 H Blood Pressure Mean 134 109 Pulse Ox 98 98 Oxygen Delivery Method Room Air Room Air Positive well nourished, well developed and obese General Appearance ED: well developed Nutritional Appearance: obese HEENT Reports moist mucous membranes HEENT Narrative: No tongue or lip swelling no oral lesions no airway edema or compromise Eyes PERRL and EOMs intact bilaterally General Eye ED: Negative for scleral icterus Neck supple Neck Narrative: No nuchal rigidity or meningeal signs Resp normal respiratory effort and clear to auscultation bilaterally Resp Narrative: No nasal flaring retractions tachypnea or accessory muscle use Cardio regular rate and regular rhythm Extremity normal to inspection Neuro oriented x3, CN's II-XII intact bilaterally and no sensory deficits noted Sensorium / Orientation: alert Motor Exam: strength 5/5 throughout Psych Mood & Affect: anxious Skin Skin Narrative: Patient has erythema that is blanchable in nature to the bilateral lower legs upper arms back and chest without involvement of the palms or soles MDM MDM MDM Narrative Medical decision making narrative: Patient presented to the ER hypertensive but has a past medical history of this. She has been taking a new GERD medication and tonight has reported urticaria that has improved with home Benadryl. On exam there is a mild erythematous rash that is most consistent with allergic reaction. She did not have anaphylaxis or angioedema so there is no need for emergent airway stabilization or epinephrine. Patient was just recently in the hospital and had a complete workup looking at kidney function and electrolytes and liver enzymes and therefore I felt there was no need for repeat laboratory studies. The patient was given IV fluids Pepcid and Benadryl Solu-Medrol was held as she had an adverse reaction to it. She was watched in the ER for approximately 2 hours and had improvement of her rash and symptoms and did not progress to respiratory distress. Therefore there is no need for further evaluation or workup and she is otherwise safe for discha rge History & Record Review Discussion w/independent historian: Patient and Family Discharge Plan Triage Chief Complaint: General Illness ED Provider: Andes,Bhupinder Dx/Rx/DC Orders Clinical Impression: Urticaria, Essential hypertension, GERD (gastroesophageal reflux disease), COPD (chronic obstructive pulmonary disease) Instructions: Understanding Hives (Urticaria), ED General Allergic Reactions Prescriptions: No Action levothyroxine [Synthroid] 150 mcg tablet 150 mcg PO DAILY Rx Instructions: One tab daily except 1/2 tab Sat/Sun alprazolam 1 mg tablet 1 mg PO TID PRN Patient Comments: [NO ORIGINAL SIG] dicyclomine 10 mg capsule 10 mg PO TID PRN Slynd 4 mg (28) tablet 4 mg PO QDAY Patient Comments: [NO ORIGINAL SIG] sucralfate 1 gram tablet 1 g PO BID Qty: 20 2RF Voquezna Triple Eric 20-500-500 mg combo pack 1 pkg PO PER PKG DIR Qty: 112 0RF (DME) OneTouch Verio test strips Strip MISCELLANEOUS (DME) FreeStyle Faith 3 Plus Sensor Device MISCELLANEOUS QMONTH Primary Care Provider: Freddy Dee Referrals: Freddy Dee MD [Primary Care Provider] - Print Language: German Disposition Disposition: Home, Self Care Discharge Date/Time: 07/07/24 00:10
== END 2024-07-07 00:10 | disposition home or self-care (01) ==
PROVIDERS: Emergency Provider Emergency Medicine; PCP Family Medicine; Visit Provider Emergency Medicine
DX: L50.9 Urticaria, unspecified (principal); J44.9 Chronic obstructive pulmonary disease, unspecified; K21.9 Gastro-esophageal reflux disease without esophagitis; I10 Essential (primary) hypertension; E03.9 Hypothyroidism, unspecified; F17.210 Nicotine dependence, cigarettes, uncomplicated; Z79.890 Hormone replacement therapy; Z79.899 Other long term (current) drug therapy; E66.9 Obesity, unspecified
CPT/HCPCS: 96361; 96374; 96375; 99283

== ENCOUNTER → 2024-07-07 | Outpatient (CLI) | payer MEDICAID, SELFPAY ==
--- NOTE | 2024-07-07 13:20 | CT_ITS ---
PROCEDURE: CHEST WITHOUT CONTRAST 07/07/2024 REASON FOR EXAM: RUL LLL NODULE FOLLOW UP TECHNIQUE: Chest CT without contrast. Coronal and Sagittal reconstruction series were provided. One or more dose reduction techniques were used (e.g., Automated exposure control, adjustment of the mA and/or kV according to patient size, use of iterative reconstruction technique COMPARISON: Comparison is made with prior study dated May 12, 2024. RADIATION DOSE SUMMARY: CTDlvol: 12.88 mGy DLP: 444.93 mGycm FINDINGS: Hardware: None Lymph nodes: Small benign-appearing mediastinal lymph nodes. Heart and Vasculature: . Atherosclerotic calcifications of the thoracic aorta. Thoracic aorta and pulmonary arteries have normal contours; noncontrast technique limits evaluation. Coronary Artery Calcifications: Present Lungs and Airways: Focal infiltrate is seen in the lateral aspect of the right middle lobe. This may represent focal pneumonia. This was not present on prior study. Radiographic follow-up is recommended. Stable 1.5 cm x 1.4 cm well-defined nodule in the posterior aspect of the right upper lobe as seen on axial image number 44 and coronal image number 50. Pleura: Unremarkable Upper Abdomen: Status post cholecystectomy. Bones: Degenerative changes of the thoracic spine. CT/Chest without Contrast IMPRESSION: New focal infiltrate in the peripheral lateral aspect of the right middle lobe. Radiographic follow-up recommended. Stable 1.5 cm x 1.4 cm well-defined nodule in the posterior aspect of the right upper lobe as seen on axial image number 44 and coronal image number 50 correlation with a PET scan recommended. Reading Location: [facility]
== END | disposition home or self-care (01) ==
LOC: CT 13:06
PROVIDERS: PCP Family Medicine; Referring Provider Nurse Practitioner Family; Visit Provider Nurse Practitioner Family
DX: R93.89 Abnormal findings on diagnostic imaging of other specified body structures (principal)
CPT/HCPCS: 71250

== ENCOUNTER → 2024-08-02 | Outpatient (CLI) | payer MEDICAID, SELFPAY ==
[2024-08-04 15:08] LABS: H. PYLORI STOOL AG Negative (Negative)
== END | disposition home or self-care (01) ==
LOC: LABSPEC 15:03
PROVIDERS: PCP Family Medicine; Referring Provider Student in an Organized Health Care Education/Training Program; Visit Provider Student in an Organized Health Care Education/Training Program
DX: A04.8 Other specified bacterial intestinal infections (principal)
CPT/HCPCS: 87338

== ENCOUNTER → 2024-11-23 | Outpatient (CLI) | payer MEDICAID, SELFPAY ==
[2024-11-23 15:23] LABS: Prothrombin Time (Protime)PT. 13.1 SECONDS (11.7-14.9)
[2024-11-23 15:25] LABS: Hematocrit 49.1 % (37-47); Hemoglobin 16.4 g/dL (12.0-15.0); Immature Granulocytes Count 0.060 X10^3/uL (0.0-0.0); Mean Corp Hgb Conc 33.4 g/dL (32-36); Mean Corpuscular Volume 97.0 fL (81-99); Mean Platelet Vol. 10.7 fl (6.2-12.0); NRBC Flagged by Analyzer 0 % (0-5); Platelet Count 272 K/mm3 (150-450); RBC Distribution Width CV 12.6 % (11.6-14.6); RBC Distribution Width SD 44.9 fl (35.1-43.9); Red Blood Count 5.06 M/mm3 (4.2-5.4); White Blood Count 9.8 K/mm3 (4.4-11.0)
[2024-11-23 16:54] LABS: AST(SGOT) 32 U/L (<=31); Alanine Aminotransfer ALT/SGPT 50 U/L (<=34); Albumin, Serum 4.3 g/dL (3.5-5.0); Alkaline Phosphatase 82 U/L (35-104); Anion Gap 14 (5-15); BUN 12 mg/dL (4-19); BUN/Creat Ratio 14.3 RATIO (10-20); Calcium,Total 9.5 mg/dL (7.6-11.0); Carbon Dioxide 23.7 mmol/L (21.0-32.0); Chloride 103 mmol/L (98-108); Cholesterol 138 mg/dL (<=200); Ferritin 208 ng/mL (22-378); Globulin 3.4 g/dL (2.2-4.2); Glucose 97 mg/dL (70-99); Low Density Lipoprotein Calc. 76 mg/dL; Potassium 3.9 mmol/L (3.3-5.1); Triglycerides 89 mg/dL; Very Low Density Lipoprotein 18 mg/dL (5-40); cholesterol:hdl ratio screen 3.13
[2024-11-23 16:57] LABS: CRP < 3.00 mg/L (0.0-3.0)
[2024-11-27 14:08] LABS: ANTINUCLEAR ANTIBODIES DIRECT Negative (Negative)
[2024-11-28 14:08] LABS: Albumin 3.4 g/dL (2.9-4.4); Anti-Smooth Muscle ABS 13 Units (0-19); Gamma Globulin 1.1 g/dL (0.4-1.8); HEPATITIS B SURFACE AG Negative (Negative); Hep C Antibodies Non Reactive (Non Reactive); Immunoglobulin A 397 mg/dL (87-352); Immunoglobulin G 1128 mg/dL (586-1602); Immunoglobulin M 131 mg/dL (26-217); PROEL- TOTAL PROTEIN 7.0 g/dL (6.0-8.5)
== END | disposition home or self-care (01) ==
LOC: LAB 13:30
PROVIDERS: PCP Family Medicine; Referring Provider Internal Medicine; Visit Provider Internal Medicine
DX: A04.8 Other specified bacterial intestinal infections (principal); K76.6 Portal hypertension; K76.0 Fatty (change of) liver, not elsewhere classified; K31.89 Other diseases of stomach and duodenum
CPT/HCPCS: 86225; 36415; 80053; 80061; 80074; 82390; 82728; 82784; 83036; 83516; 84165; 85025; 85610; 86038; 86140; 86334; 86706

== ENCOUNTER 2024-12-24 19:11 | Emergency (ER) | payer MEDICAID, SELFPAY ==
[2024-12-24 19:12] VITALS: BP 174/101; PULSE 116; RESP 17; TEMP 36.4; O2SAT 95
--- NOTE | 2024-12-24 19:44 | EDS_ITS ---
HPI History of Present Illness HPI Narrative: 58-year-old female history of factor V and SVT on no anticoagulation. Was cutting hedges when she lacerated the left long finger and small finger along the nail. This occurred less than 30 minutes ago. Believes her tetanus is up-to-date. She is right-hand dominant. No other complaints. Chief Complaint: Laceration Informant: patient Occured/Mechanism Mechanism/Context: Yes injury Onset/Context/Timing Onset: Today Context: Sudden Onset Timing: Continuous Quality of Pain: Sharp Current Severity: Mild Maximum Severity: Mild Associated Symptoms Associated Symptoms: Negative for Parasthesia, Weakness or Loss of Funtion Narrative Narrative: 58-year-old female with lacerations to her left hand long and small finger ataxia versus a hedge tremor that occurred less than 30 minutes ago. She is right-hand dominant. This is her left hand. 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 On home oxygen therapy Sleep apnea Lumbar degenerative disc disease Dominguez's cyst of knee Vitamin D deficiency Acquired hypothyroidism Essential hypertension IBS (irritable bowel syndrome) Meniere disease Depression Anxiety Hyperthyroidism Sinus tachycardia Paroxysmal SVT (supraventricular tachycardia) Premature ventricular contraction Premature atrial contractions Home Medications ?Medication ?Instructions ?Recorded ?Last Taken ?Type blood sugar diagnostic (OneTouch 06/13/24 Unknown His tory Verio test strips) blood-glucose sensor (FreeStyle 06/13/24 Unknown Hist or[employer] Faith 3 Plus Sensor device) alprazolam 1 mg tablet 1 mg PO TID PRN 06/16/24 Unk nown History dicyclomine 10 mg capsule 10 mg PO TID PRN 06/16/24 Un known History drospirenone (contraceptive) 4 mg 4 mg PO QDAY contrac eptive 06/16/24 Unknown History (28) tablet (Slynd) levothyroxine 150 mcg tablet 150 mcg PO DAILY 06/16/24 Unknown History (Synthroid) estradiol 1.25 gram/actuation 1 pump transdermal BID 0 08/23/24 Unknown History (0.06%) transdermal gel pump (EstroGel) Allergy/AdvReac Type Severity Reaction Status Date / Time amoxicillin (From Voquezna Allergy Severe Flushing, Verified 12/24/24 19:14 Triple Eric) Hives, Hypertension clarithromycin (From Allergy Severe Flushing, Verified 12/24/24 19:14 Voquezna Triple Eric) Hives, Hypertension vonoprazan (From Voquezna Allergy Severe Flushing, Verified 12/24/24 19:14 Triple Eric) Hives, Hypertension codeine Allergy Rash Verified 12/24/24 19:14 hydrocodone bitartrate (From Allergy Rash Verified 12/24/24 19:14 Vicodin) methimazole (From Tapazole) Allergy Shortness Verified 12/24/24 19:14 of breath metformin AdvReac Intermediate myalgias Verified 12/24/24 19:14 famotidine (From Pepcid) AdvReac Unknown Unknown Verified 12/24/24 19:14 estradiol (From CombiPatch) AdvReac myalgias, Verified 12/24/24 19:14 lip/mouth burn, SOB, nausea, dizziness methylprednisolone sodium AdvReac Other Verified 12/24/24 19:14 succinate (From Solu-Medrol) norethindrone (From AdvReac myalgias, Verified 12/24/24 19:14 CombiPatch) lip/mouth burn, SOB, nausea, dizziness oxycodone HCl (From Percocet) AdvReac Nausea/Vom/ Verified 12/24/24 19:14 Diarrhea cyp 2019 AdvReac Intermediate unknown Uncoded 11/27/24 14:54 Family History Father CAD (coronary artery disease) Hypertension Myocardial infarction, Onset Age: 66 Hx of CABG Colon cancer Diabetes Mother CVA (cerebral vascular accident) Diabetes Sister Thyroid disorder Surgical History Hx of radioactive iodine thyroid ablation History of left oophorectomy History of tubal ligation History of cholecystectomy Social History Smoking Status: Heavy Smoker (>10/day) alcohol intake: never substance use type: does not use caffeine: No ROS ROS ED ROS Narrative Denies recent illness. Constitutional Constitutional ED: Denies chills or fever(s) Eyes Eyes: Denies blurry vision ENT ENT ED: Denies ear pain Cardiovascular Cardiovascular: Denies chest pain Respiratory/Chest Respiratory/Chest: Denies cough or dyspnea Gastrointestinal Gastrointestinal: Denies abdominal pain Genitourinary Genitourinary ED: Denies dysuria or hematuria Musculoskeletal Musculoskeletal: Denies back pain Integumentary Denies abscess Neurologic Neurologic: Denies headache(s) Psychiatric Psychiatric: Denies anxiety Endocrine Endocrinology: Denies cold intolerance Hematologic/Lymphatic Hematologic/Lymphatic: Denies easy bleeding or easy bruising Allergic/Immunologic Allergic/Immunologic ED: Denies mouth swelling, tongue swelling or urticaria EXAM Physical Exam Narrative Exam Narrative: Appearing 58-year-old female vital signs stable afebrile. Sitting upright in bed. H EENT exam pupils round react light point moist mucous membranes. No signs of trauma. Neck nontender. Back nontender. Lungs clear to auscultation bilaterally. Heart regular rhythm rate about 110 no murmur. Chest wall and ribs nontender. Abdomen soft nontender. Moving all 4 extremities. Right upper and both lower are nontender with no injuries. Normal range of motion and strength. Left hand with a laceration left small finger along the nail. And also of the left long finger along the nail on the lateral side. She has full flexion extension. Normal touch sensation. Skin is intact. No gross bony deformity. Normal range of motion. Otherwise exam unremarkable. Const Vital Signs: 12/24/24 19:12 Temperature 97.5 F L Temperature Source Temporal Pulse Rate 116 H Respiratory Rate 17 Blood Pressure 174/101 H Blood Pressure Mean 125 Pulse Ox 95 Positive well nourished and well developed; Negative for cachectic, contractures or unkempt General Appearance ED: well developed and NAD; Negative for unkempt, cachectic, contractures, cyanotic or diaphoretic Nutritional Appearance: Negative for cachectic HEENT Reports moist mucous membranes normocephalic and atraumatic Eyes PERRL and EOMs intact bilaterally Neck full ROM and supple Chest Wall inspection of chest normal and palpation of chest normal Resp normal respiratory effort and clear to auscultation bilaterally Cardio regular rhythm, S1 normal heart sound, S2 normal heart sound and no murmurs; Negative for regular rate Rate: tachycardic GI non-tender, non-distended and no masses Auscultation: normoactive bowel sounds Palpation: soft; Negative for tender, guarding or rebound tenderness present Back/Spine no CVA tenderness General Back: Negative for CVA tenderness Cervical Spine: Negative for cervical spine tenderness Thoracic Spine / Upper Back: Negative for thoracic spinal tenderness Lumbar Spine / Lower Back: Negative for lumbar spinal tenderness Extremity full ROM; Negative for normal to inspection Extremity Narrative: Lacerations left long and small finger along the nails. It is CT normal range of motion. Neurovascularly intact. No gross bony deformity. Neuro oriented x3, CN's II-XII intact bilaterally, moves all extremities and no focal motor deficits Sensorium / Orientation: alert, oriented to person, oriented to place and oriented to time Motor Exam: strength 5/5 throughout Psych mental status grossly normal Appearance: Negative for unkempt Skin Lesions: no lesions Rashes: no rashes Trauma: laceration MDM MDM MDM Narrative Medical decision making narrative: 58-year-old female hedge tremor versus left long and small fingers. X-ray elbow is retained. Tetanus is already up-to-date. Will wash the hand and see if anything we need to do further repair. Repeat exam at 8:25 PM patient doing well. She has full flexion extension of the left ring fingers. Neurovascularly intact. There is a superficial laceration to the left small finger on the radial side. It is not actively bleeding and does not does not be closed. There is a laceration of the proximal end of the nail of the left long finger. However currently is not actively bleeding. The nail is otherwise intact. She and I discussed treatment options she did not want me to remove the nail. Just wanted cleaned and dressed. And again she states her tetanus is up-to-date. She knows that she sees any signs of an infection return. She was instructed on wound care. History & Record Review Discussion w/independent historian: Patient Radiography Diagnostic Testing: Left hand x-ray, 3 views, interpreted by myself and the radiologist. Shows no acute fracture nor dislocation or foreign body. Discharge Plan Triage Chief Complaint: Laceration ED Provider: Gerhard Herrera Dx/Rx/DC Orders Clinical Impression: Finger laceration Instructions: ED Laceration, All Closures Prescriptions: No Action levothyroxine [Synthroid] 150 mcg tablet 150 mcg PO DAILY Rx Instructions: One tab daily except 1/2 tab Sat/Sun alprazolam 1 mg tablet 1 mg PO TID PRN Patient Comments: [NO ORIGINAL SIG] dicyclomine 10 mg capsule 10 mg PO TID PRN Slynd 4 mg (28) tablet 4 mg PO QDAY Patient Comments: [NO ORIGINAL SIG] estradiol [EstroGel] 1.25 gram/actuation gel in metered-dose pump 1 pump transdermal BID (DME) OneTouch Verio test strips Strip MISCELLANEOUS (DME) FreeStyle Faith 3 Plus Sensor Device [facility] Primary Care Provider: Freddy Dee Referrals: Freddy Dee MD [Primary Care Provider] - As Needed Activity Restrictions/Additional Instructions: Keep your fingers dry and clean. If our dressing stays dry and clean you can leave it on 4 to 5 days. Then each day clean thoroughly with soap and water or peroxide and water. Apply antibiotic ointment. Ice and elevate to decrease pain and swelling. Motrin Tylenol for pain and swelling. Any signs of infection return. Keep our dressing on for 4 to 5 days. If it ge ts dirty or wet change it, clean the fingers apply antibiotic ointment and throw a Band-Aid on. Any signs of infection such as pus, red streaks, fever, severe swelling or worsening pain return. Print Language: Indian Disposition Disposition: Home, Self Care
--- OUTSIDE RECORDS SUMMARY | 2024-12-24 19:53 | XMS RPT_ITS | CCD ---
Author Organization [facility] Inform ion Partnership [facility] Care Team Providers Care Diamond Saw Operator Name Role Phone Michelle Wu MD Unavailable [phone] David HARRIS, Noman Gutiérrez Unavailable Ayan Koehler NP Unavailable PROVIDER, UNKNOWN Unavailable Unavailable PROVIDER, UNKNOWN Unavailable Unavailable PROVIDER, UNKNOWN Unavailable Unavailable PROVIDER, UNKNOWN Unavailable Unavailable PROVIDER, UNKNOWN Unavailable Unavailable Perez Hernandez Unavailable Unavailable Freddy Nava Unavailable Unavailable FEMI DE OLIVEIRA Attending Unavailable IMCA Referring Unavailable Freddy Nava Primary Care Unavailable TERRI DE OLIVEIRA Attending Unavailable Lucia Naidu Unavailable Unavailable Michelle Wu MD Unavailable [phone] Queenie Benites Unavailable Unavailable Freddy Nava Unavailable Unavailable Digna Rascon Unavailable Unavailable Freddy Nava MD Primary Care Provider Dr. Freddy Nava Primary Care Provider Elijah, Dr. Hayes Referring Provider Dr. Daniel Ballard Attending Provider Dr. Freddy Nava Primary Care Provider Elijah, Dr. Hayes Referring Provider ESTEFANIA Aragon Attending Provider Dr. Nabeel Rossi Attending Provider Freddy Nava MD Primary Care Provider Freddy Nava MD Primary Care Provider Freddy Nava MD Primary Care Provider Freddy Nava MD Primary Care Provider Freddy Nava MD Primary Care Provider LY PÉREZ Attending Unavailable FREDDY NAVA Primary Care Unavailable LY PÉREZ Attending Unavailable FREDDY NAVA Primary Care Unavailable Freddy Nava MD Primary Care Provider Haagen PAPER CONE MAKER.NARCOTICS AND VICE DETECTIVE, Tracie Unavailable Suppan PAPER CONE MAKER.NARCOTICS AND VICE DETECTIVE, Yarelis A Unavailable [phone] Suppan PAPER CONE MAKER.NARCOTICS AND VICE DETECTIVE, Yarelis A Unavailable Suppan PAPER CONE MAKER.NARCOTICS AND VICE DETECTIVE, Yarelis A Unavailable [phone] Dr. Freddy Nava MD Primary Care Provider Suppan GATE CLERK, Yarelis Attending Provider Suppan GATE CLERK, Yarelis Referring Provider Dr. Freddy Nava MD Referring Provider Dr. Armen Sibley DO Attending Provider [phone] Judy Lock Attending Provider Dr. Isael Anton MD Attending Provider Aneta ZALDIVAR-CTorie Attending Provider Dr. Herbert Macias DO Attending Provider Dr. Herbert Macias DO Emergency Provider Dr. Bhupinder Fritz DO Attending Provider Dr. Bhupinder Fritz DO Emergency Provider Dr. Ti Martinez DO Attending Provider Dr. Ti Martinez DO Other Provider [phone] Freddy Nava MD Primary Care Provider Dr. Freddy Nava MD Attending Provider Aneta ZALDIVAR-CTorie Referring Provider Dr. Freddy Nava MD Primary Care Provider Dr. Freddy Nava MD Referring Provider Torsten SIDDIQUI, Dr. Ayers Attending Provider Elijah HARRIS, Dr. Hayes Primary Care Provider Elijah HARRIS, Dr. Hayes Referring Provider Judy Lock Attending Provider Judy Lock Referring Provider Flo HARRIS, Dr. Lees Attending Provider JB MCCALLUM Referring Unavailable ELIJAH, FREDDY Lemons Primary Care Unavailable ELIJAH, FREDDY BACON Primary Care Unavailable MELINDA AUGUSTIN Attending Unavailable ELIJAH, FREDDY BACON Primary Care Unavailable Elijah HARRIS, Dr. Hayes Primary Care Provider Judy Lock Attending Provider Elijah HARRIS, Dr. Hayes Referring Provider Alessio HARRIS, Dr. Muhammad Attending Provider Esvin HARRIS, Dr. Gamez Attending Provider Aneta CLINICAL REVIEW SPECIALIST-C, Torie Reveles Attending Provider ELIJAH, FREDDY Attending Unavailable ELIJAH, FREDDY Primary Care Unavailable ELIJAH, FREDDY Primary Care Unavailable PAUL DURON Attending Unavailable ELIJAH, FREDDY Primary Care Unavailable PAUL DURON Attending Unavailable ELIJAH, FREDDY Attending Unavailable ELIJAH, FREDDY Primary Care Unavailable ELIJAH, FREDDY Primary Care Unavailable YARELIS ADKINS Attending Unavailable ELIJAH, FREDDY Referring Unavailable ELIJAH, FREDDY Primary Care Unavailable ELIJAH, FREDDY Referring Unavailable ELIJAH, FREDDY Primary Care Unavailable ELIJAH, FREDDY Attending Unavailable ELIJAH, FREDDY Primary Care Unavailable SELF Referring Unavailable ELIJAH, FREDDY Attending Unavailable ELIJAH, FREDDY Primary Care Unavailable ELIJAH, FREDDY Attending Unavailable ELIJAH, FREDDY Primary Care Unavailable ELIJAH, FREDDY Primary Care Unavailable ELIJAH, FREDDY Attending Unavailable ELIJAH, FREDDY Attending Unavailable ELIJAH, FREDDY Primary Care Unavailable ELIJAH, FREDDY Referring Unavailable ELIJAH, FREDDY Primary Care Unavailable ELIJAH, FREDDY Referring Unavailable ELIJAH, FREDDY Primary Care Unavailable ELIJAH, FREDDY Referring Unavailable KASEY JOYCE Attending Unavailable ELIJAH, FREDDY Primary Care Unavailable ELIJAH, FREDDY Primary Care Unavailable ELIJAH, FREDDY Attending Unavailable ELIJAH, FREDDY Attending Unavailable ELIJAH, FREDDY Primary Care Unavailable ELIJAH, FREDDY Referring Unavailable ELIJAH, FREDDY Primary Care Unavailable ELIJAH, FREDDY Attending Unavailable ELIJAH, FREDDY Primary Care Unavailable ELIJAH, FREDDY Referring Unavailable ELIJAH, FREDDY Primary Care Unavailable ELIJAH, FREDDY Primary Care Unavailable ELIJAH, FREDDY Attending Unavailable ELIJAH, FREDDY Primary Care Unavailable ELIJAH, FREDDY Attending Unavailable ELIJAH, FREDDY Referring Unavailable DESEANARAMRADHA Attending Unavaila ble ELIJAH, FREDDY Primary Care Unavailable ELIJAH, FREDDY Referring Unavailable ELIJAH, FREDDY Primary Care Unavailable ELIJAH, FREDDY Attending Unavailable ELIJAH, FREDDY Primary Care Unavailable BENDARAM, RADHA DERAS Attending Unavaila ble ELIJAH, FREDDY Primary Care Unavailable ELIJAH, FREDDY Referring Unavailable ELIJAH, FREDDY Primary Care Unavailable ELIJAH, FREDDY Primary Care Unavailable ELIJAH, FREDDY Attending Unavailable ELIJAH, FREDDY Attending Unavailable ELIJAH, FREDDY Primary Care Unavailable ELIJAH, FREDDY Referring Unavailable ELIJAH, FREDDY Primary Care Unavailable PAUL DURON Attending Unavailable ELIJAH, FREDDY Primary Care Unavailable ELIJAH, FREDDY Attending Unavailable ELIJAH, FREDDY Primary Care Unavailable ELIJAH, FREDDY Attending Unavailable ELIJAH, FREDDY Primary Care Unavailable ELIJAH, FREDDY Primary Care Unavailable PAUL DURON Attending Unavailable ELIJAH, FREDDY Attending Unavailable ELIJAH, FREDDY Primary Care Unavailable OFE GARCIA Attending Unavailable ELIJAH, FREDDY Primary Care Unavailable ELIJAH, FREDDY Referring Unavailable ELIJAH, FREDDY Primary Care Unavailable ELIJAH, FREDDY Referring Unavailable ELIJAH, FREDDY Primary Care Unavailable Alessio HARRIS, Dr. Muhammad Referring Provider Dr. Freddy Nava MD Primary Care Provider [phone] Dr. Freddy Nava MD Referring Provider [phone] Dr. Vera Mcallister MD Attending Provider Torie Cornell Referring Unavailable Torie Cornell Attending Unavailable Casas, Freddy Primary Care Unavailable Elijah, Freddy Primary Care Unavailable Bhupinder Fritz Attending Unavailable Judy El Attending Unavailable Casas, Freddy Referring Unavailable Casas, Freddy Primary Care Unavailable Herbert Macias Attending Unavailable Casas, Freddy Primary Care Unavailable Elijah, Freddy Primary Care Unavailable Bhupinder Fritz Attending Unavailable Torie Cornell Referring Unavailable Torie Cornell Attending Unavailable Elijah, Freddy Primary Care Unavailable Ti Martinez Attending Unavailable Elijah, Freddy Referring Unavailable Elijah, Freddy Primary Care Unavailable Torie Cornell Referring Unavailable Torie Cornell Attending Unavailable Elijah, Freddy Primary Care Unavailable Torie Cornell Attending Unavailable Casas, Freddy Primary Care Unavailable Casas, Freddy Referring Unavailable Casas, Freddy Primary Care Unavailable AnddorisBhupinder Attending Unavailable Casas, Freddy Primary Care Unavailable Andes, Bhupinder Attending Unavailable Elijah, Freddy Primary Care Unavailable Elijah, Freddy Referring Unavailable Casas, Freddy Attending Unavailable Shirley Pop Attending Unavailable Casas, Freddy Primary Care Unavailable Suppan, Yarelis Referring Unavailable Suppan, Yarelis Attending Unavailable Casas, Freddy Primary Care Unavailable Judy El Referring Unavailable ADDITIONAL INFORMATION Testing performed by Liquid Chromatography-Tandem Mass Spectrometry (LC-MS/MS). This test was developed and its performance characteristics determined by [facility] in a manner consistent with CLIA requirements. This test has not been cleared or approved by the U.S. Food and Drug Administration. 06/15/2019 30 8 - 60 ng/dL Final Comment: (NOTE) ADDITIONAL INFORMATION Testing performed by Liquid Chromatography-Tandem Mass Spectrometry (LC-MS/MS). This test was developed and its performance characteristics determined by [facility] in a manner consistent with CLIA requirements. This test has not been cleared or approved by the U.S. Food and Drug Administration. 12/12/2018 See Comment <40 ng/dL Final Comment: The total testosterone result is 20 ng/dL, the reference range of [facility] is 8 to 60 ng/dL. Disregard [facility] reference range. Interpret the result using the reference range provided by the performing laboratory. Results should not be compared to previously reported results using [facility]'s assay due to differences in methodology. Test performed by: [facility], [place], [place] Testing performed by Liquid Chromatography Tandem Mass Spectrometry. 07/27/2018 30 <40 ng/dL Final 05/17/2018 19 <40 ng/dL Final 01/03/2018 29 <40 ng/dL Final 09/08/2017 39 <40 ng/dL Final Last Bone Density No resulted procedures found. BELKIS Bilateral Screening Impression Only BELKIS SCREENING Exam End: 07/01/2022 2:50 PM (Final result) Impression: IMPRESSION: NEGATIVE There is no mammographic evidence of malignancy. A 1 year screening mammogram is recommended. The exam was reviewed by a staff physician. Ruslan Perez M.D. rs,[facility]/mahamed:07/01/2022 15:25:18 Svp Of Digital(s): Belia Trevino, RT(R)(M), [facility] letter sent: Normal over 40 Mammogram BI-RADS: 1 Negative Multiple national specialty organizations have released breast cancer screening guidelines for women at average risk for developing breast cancer - guidelines that are based on both evidence and opinion, yet ... BELKIS Unilateral Screening Impression Only No resulted procedures found. PLAN: The following diagnoses were relevant to this visit: (N95.9) Menopausal and perimenopausal disorder (primary encounter diagnosis) (K76.0) Fatty liver (D58.2) Elevated hemoglobin (R23.2) Hot flashes (E34.9) Hormonal disorder Will start discussed that the MHT may take 3-4 months for full symptom resolution, but she would like to go ahead and start the testosterone now. (reviewed R/SE/Ins). Because of her elevated LFT and hemoglobin, we will need to monitor that closely. - Continue applying your estrogen twice daily to the arm and 1/4-1/2 pill of Slynd - Begin testosterone therapy: Goal start about 5 mg and apply it to your calf in the evening. If this dose feels too strong, you may reduce to one-quarter cc (about 2.5-3 mg) daily, as this lower dose is better for many women. - Your [facility] - Schedule your hormone blood draw for mid-December, preferably around 8 AM. On the morning of your lab visit, skip your estrogen dose (to avoid contamination of the arm at the site of the blood draw) but take your testosterone the night before. - Avoid all vitamins, supplements, and herbal products for three days before your hormone testing. - Reschedule the mammogram order as soon as possible. Patient already has a follow-up scheduled 01/25/2025 Appointment on 11/09/24 TESTOSTERONE, FREE AND TOTAL, BY EQUILIBRIUM DIALYSIS AND MASS SPECTROMETRY ESTRADIOL BY TANDEM MASS SPECTROMETRY HEPATIC FUNCTION PNL HEMOGLOBIN Paul Duron MD Call if any discussed symptoms not better or worse. Note dictated using voice recognition software. documented in this encounter [facility] 10-03-2024 History of Present illness Narrative Subjective Patient ID: Maribell Garzon is a 58 y.o. female who presents for GERD. PMH: sleep apnea, hypothyroidism Denies pacer/defib, blood thinners Had an EGD in [place], she had problems with the office. Reports she had problems with scheduling. She underwent an EGD and the EGD showed portal HTN. She reports she never had a liver problem. She was seen by a grievance and appeals specialist and had a fibroscan. The fibroscan showed fatty infiltration of the liver, moderate amount. Hepatology recommended liver biopsy vs. Repeat EGD She has sever reflux, she can not take PPIs and give her terrible side effects and she reports she even had genetic testing d/t problems with PPIs and this was shown that Rabeprazole would be the only medication that would work. She had an EGD and found to have H pylori and was treated with clarithromycin. EGD showed La grade B reflux esophagitis with no bleeding, ectopic gastric mucosa in the upper third of the esophagus, erosive gastropathy with no stigmata of recent bleeding, Portal HTN, erythematous duodenopathy She had a follow-up H pylori stool test which was negative And now reports all back again. She is using Carafate and has to take synthroid and this causes problems with timing. She had an ovarian removal and then she gained 60 lbs. She denies heartburn but has sour taste in mouth, pain in the epigastric area but can be left or right. Sometimes a burning pain throughout the abdomen described as tightness She has had aspiration pneumonia twice She had a cholecystectomy with intermittent episodes of diarrhea and constipation The Carafate has helped She has bloating and belching, early satiety, she reports intermittent dysphagia localized to the sternal area, occurs with solid foods only and alleviated drinking water. She denies weight loss, denies vomiting, +night sweats, denies nasal regurgitation, coughing/choking on food She has a BM daily, however she has constipation or diarrhea, since having a cholecystectomy. Last colonoscopy 2 years, and she reports she is due now She does report a h/o polyps She is prediabetic and will be started on metformin. CBD 0.5 cm at hilium Reports a GERMAN in the past and was told to have gastric bypass Family Hx: Father has 13 siblings and all of them had colon cancer Thought to be 2/2 environmental Father had colon cancer @ 52 She reports she did not have genetic testing, none of the siblings had colon cancer 2 uncles had esophageal cancer Review of Systems Constitutional: Negative for chills, diaphoresis, fatigue and fever. HENT: Negative. Eyes: Negative. Respiratory: Negative. Negative for apnea, cough, chest tightness, shortness of breath, wheezing and stridor. Cardiovascular: Negative. Gastrointestinal: See HPI Endocrine: Negative. Genitourinary: Negative. Negative for difficulty urinating. Musculoskeletal: Negative. Skin: Negative. Allergic/Immunologic: Negative. Neurological: Negative. Hematological: Negative. Psychiatric/Behavioral: Negative. Objective Physical Exam Neurological: Mental Status: She is alert and oriented to person, place, and time. Assessment/Plan Diagnoses and all orders for this visit: Gastroesophageal reflux disease, unspecified whether esophagitis present - famotidine (Pepcid) 40 mg tablet; Take 1 tablet (40 mg) by mouth once daily. - Esophagogastroduodenoscopy (EGD); Future - [place] GI esophagram; Future Portal hypertension (Multi) - Esophagogastroduodenoscopy (EGD); Future Esophageal dysphagia - famotidine (Pepcid) 40 mg tablet; Take 1 tablet (40 mg) by mouth once daily. - Esophagogastroduodenoscopy (EGD); Future - [place] GI esophagram; Future Family hx of colon cancer - Colonoscopy Screening; High Risk Patient; Father with colon cancer, personal h/o polyps; Future Left upper quadrant abdominal pain - CT abdomen pelvis w IV contrast; Future Pain of upper abdomen - Lipase; Future Chronic constipation - wheat dextrin (Benefiber Healthy Shape) 5 gram/7.4 gram powder; Take 1 teaspoon daily - polyethylene glycol (Gavilax) 17 gram/dose powder; Mix 17 g of powder and drink once daily. 58 year old female with a PMH of hypothyroidism, Factor V, Fatty liver, sleep apnea who requests a VV today for GERD. Ongoing for many years, she was previously evaluated at [facility] w/German and gastric bypass was recommended. She has mostly been doing well with Rabeprazole and Carafate and currently denies reflux however does have a h/o aspiration pneumonia, with worsening night time symptoms, early satiety and bloating w/intermittent dysphagia. For these symptoms she recently underwent an EGD in [place] and found to have portal HTN, LA grade B esophagitis and H pylori, and portal HTN. I was unable to access the pathology. 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 Liver biopsy. An order for an EGD was placed as well as an esophogram. We reviewed dietary and lifestyle modifications given her h/o GERD and aspiration pneumonia, including elevating the HOB and avoiding eating prior to bedtime (3-4 hours). She will continue Carafate and use famotidine at . She is unable to tolerate PPIs and previously it was recommended she consider bariatric surgery, we discussed surgery/procedural options for GERD and she may benefit if symptoms persist. She also has a strong family hx of CRC (Father and Father's siblings). She reports she is due for a colonoscopy, I am unable to see prior however it is noted she had a tubular adenoma previously. She has intermittent constipation and diarrhea, would recommend a trial of fiber, she is concerned about bile acid diarrhea/reflux and we discussed cholestyramine however d/t h/o constipation will not trial at this time. She also has generalized abdomina pain and if we could consider CT without improvement of symptoms, however she thinks she had a CT recently, she will MyChart message me results. PEDRO Padilla 10/03/24 11:07 AM Virtual or Telephone Consent An interactive audio and video telecommunication system which permits real time communications between the patient (at the originating site) and provider (at the distant site) was utilized to provide this telehealth service. Verbal consent was requested and obtained from Maribell Garzon on this date, 10/03/24 for a telehealth visit and the patient's location was confirmed at the time of the visit. documented in this encounter [facility] Work Phone: 10-03-2024 Instructions PEDRO Padilla - 10/03/2024 11:00 AM EDT Start benefiber one teaspoon daily with a full glass of water Use Miralax for constipation Continue Carafate Add famotidine at bedtime Use a wedge pillow at night, do not eat for 4 hours before bedtime Try to quit smoking GERD - Avoid overeating at mealtime. Stay upright for 2 hours after eating. Do not eat for 3-4 hours before going to bed. Elevated the head of the bed 6 inches when you are sleeping. Avoid excessive amounts of fried foods, acidic foods, spicy foods, alcohol, caffeine, peppermint, spearmint, chocolate, non-steroidal anti- inflammatory medications, such as, Ibuprofen, Advil, Motrin, Aleve, Naproxen, Naprosyn, Moloxicam, Etodolac, and Voltaren. documented in this encounter [facility] Work Phone: 09-29-2024 Instructions Radha Bernal MD - 09/29/2024 12:05 PM EDT Please start taking metformin 500 mg daily for 1 weeks after which start taking twice daily Please check blood glucose levels twice or three times weekly on fasting to make sure blood sugars are better documented in this encounter [facility] 09-29-2024 History of Present illness Narrative [facility] Follow up visit Consulted by: Freddy Nava MD (PCP) Chief Complaint: Hypoglycemia, Type 2 DM with no known diabetic complications My final recommendations will be communicated back to the requesting physician by way of shared medical record or letter via [place] mail. HPI: This is a 58 year old pleasant female who presents with concerns with symptoms associated with blood sugars. 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 Daughter is a nurse as well Hx of diabetes in son. She has noted having symptoms of redness of skin, feels very sick especially postprandially sometimes, with dizziness, feels cold (no hot flashes) like cold flashes, no sweating reported, has palpitations, and has tremors on some occasions, when her sugar drops, and has started experiencing these symptoms after oophorectomy in 2014 - Blood glucose levels can rise to 190 mg/dL postprandially and then drop quickly to 60-70 mg/dL. Denies drops in sugars on fasting. - Noted that consuming carbohydrates alone leads to rapid increases and subsequent quick drops in blood glucose levels. - Consumes candy or cheese to raise blood glucose levels during hypoglycemic episodes. - Reports a significant drop in blood glucose from 192 mg/dL to 67 mg/dL within two hours after consuming an ice cream . - Consuming protein with carbohydrates helps maintain stable blood glucose levels. - Experiences drowsiness when blood glucose levels reach 150 mg/dL, and extreme fatigue at 180 mg/dL. - Previously was prescribed metformin 500 mg BID, which was discontinued due to inducing hypoglycemic episodes. 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 - Confirms CGM readings with fingerstick tests, when most times she has noted that the finger stick sugars were higher in 70ss when CGM showed 60s, while sometimes it was accurate in 60s on finger sticks. Lowest BG in the recent past was 58 mg/dl as reported today - she denied any N/V, weight loss. Has diarrhea intermittently since cholecystectomy but no changes recently - denied any weight loss or other gastric surgeries - denied significant alcohol use - denied any over the counter supplements, medications not on her med list currently She has a hx of PCOS, diagnosed by high testosterone levels since early 20s. - Has six children and did not experience issues with fertility. - Reports being very muscular and slender before oophorectomy in 2014 due to a large ovarian cyst. - Pathology report post-surgery suggested a string of pearls appearance, indicative of PCOS. - Noted significant weight gain and fatigue post-oophorectomy. Per chart review, she was menopausal by the time of surgery, more like at the age of 43 years per documentation, with sudden cessation of menses following a traumatic event (father's ), which she was told was possible by her OBGYN. Never used HRT until oophorectomy due to symptoms described above - Has been on estrogen therapy now, which improves symptoms suspected of hypoglycemia partially and stabilizes blood glucose levels. - Reports difficulty losing weight, with a recent 10-pound weight loss achieved through strict diet and exercise. - Denies recent unintentional weight loss. SVT was diagnosed with a single episode recorded on a monitor. - Denies experiencing symptoms during the recorded episode. - Evaluated by an fruit distributor who attributed the SVT to an underlying condition rather than a primary cardiac issue. - Did not check blood glucose levels during the SVT episode. She reports seeing Dr. Reinoso several years ago, and was proposed to start metformin for reactive hypoglycemia, with option to start back then vs later, and patient reports opting for later - Recently diagnosed with portal hypertension gastropathy following an EGD for severe reflux - Scheduled to see a liver specialist in August. - Reports elevated liver enzymes for the first time. She reports this was suspected due to having high blood sugars - Underwent a liver scan (FibroScan) recently. Of note, she was also seen by Dr. Ortiz for cortisol issues and hypothyroidism in the past. Labs for adrenals hormones have been reviewed on chart. Interval history: 09/29/24 She brought BG log- blood sugars ranging from 93 to 208 mg/dl on multiple occasions, post meals when symptoms occurred Thinks she has metabolic syndrome and would like to do something for weight loss Asks me to help her with weight loss, when discussed if she prefers seeing weight management she asks that I treat her blood sugars Patient has had higher than normal blood sugars for atleast 4 years now (hba1c highest being 6.4%, with most recent one in 06/2024 being 6.1%) and not on any oral hypoglycemic agent. She reports being on metformin for very brief period and stopping for possible lows as she reported, she does not clearly remember, but now would like to start. She says Dr. Nava recommended her to ask endocrinology as they are the experts PAST MEDICAL HISTORY: PAST MEDICAL HISTORY Diagnosis Date Abdominal pain, chronic, right upper quadrant Asthma (HCC) As a baby, then I outgrew it. Cystocele, midline 05/13/2009 Delayed emergence from anesthesia 09/27/2014 Depression Excessive or frequent menstruation Heavy periods Fatty liver GERD (gastroesophageal reflux disease) History of Graves' disease HSDD 10/21/2011 Hypothyroidism thyroid ablation/hypothyroid Irregular menstrual cycle Irregular periods menopause age 43 2009 in 2012 FSH 47 Moderate dysplasia of cervix 2001 Parent-child conflict 03/07/2013 Rectocele 05/13/2009 SVT (supraventricular tachycardia) ([facility]) Has seen cardiology at [facility], many [...] Tele Tobacco use Weight gain PAST SURGICAL HISTORY: PAST SURGICAL HISTORY Procedure Laterality Date COLONOSCOPY 04/2017 says nl CONIZATION CERVIX W/WO D&C RPR ELTRD EXC 2001 LEEP-Cervix ESOPHAGOGASTRODUODENOSCOPY TRANSORAL DIAGNOSTIC 01/22/2014,2009 EGD LAPAROSCOPY SURG CHOLECYSTECTOMY 05/19/2011 LIG/TRNSXJ FLP TUBE ABDL/VAG APPR UNI/BI 2003 Tubal ligation OOPHORECTOMY PARTIAL/TOTAL UNI/BI 09/2014 laparoscopic left, CW, umbilical/upper abdominal adhesions seen benign PAST SURGICAL HISTORY OF 1998 tubal PAST SURGICAL HISTORY OF 2001 thyroid ablation FAMILY HISTORY: FAMILY HISTORY Problem Relation Age of Onset Diabetes Mother Type 2 stroke Colon Cancer Father age 64 ND Diabetes Father Type 2 Hypertension Father Coronary Artery Disease Father Hx of ND Thyroid Sister hx of parathyroid disease/ hx of fibroids other (healthy) Brother other (healthy) Brother Allergies Daughter other (healthy) Daughter other (healthy) Son other (healthy) Son other (healthy) Son other (healthy) Son Colon Cancer Paternal Aunt x5 Colon Cancer Paternal Uncle x8 SOCIAL HISTORY: Social History Tobacco Use Smoking status: Every Day Current packs/day: 1.00 Average packs/day: 1 pack/day for 20.0 years (20.0 ttl pk-yrs) Types: Cigarettes Smokeless tobacco: Never Vaping Use Vaping status: Never Used Substance Use Topics Alcohol use: No Drug use: No MEDICATIONS: Current Outpatient Medications Medication Sig RABEprazole (ACIPHEX) 20 mg tablet Take 1 tablet by mouth once daily. sucralfate (CARAFATE) 1 gram tablet Take 1 tablet by mouth four times daily. Estradiol (ESTROGEL) 1.25 gram/actuation glpm Apply 1 Applicator as directed two times a day. RUB ON SKIN OF THE ARM. Clinician aware that this is a higher dose, we will monitor levels. dicyclomine (BENTYL) 10 mg capsule Take 1 capsule by mouth before meals and at bedtime. Prn blood sugar diagnostic (BLOOD GLUCOSE TEST) test strip Test blood sugar(s) 2 times daily. Insulin: No drospirenone, contraceptive, (SLYND) 4 mg (28) tabet Take 1/4 pill daily. Noncontraceptive purpose. Please apply company discount, process as self-pay if insurance does not cover. SYNTHROID 150 mcg tablet Take 1 tablet by mouth once daily. Except 1/2 tab Sun and Sat Lancets lancets Test blood sugar(s) 2 times [...] monitoring kit 1 Each as needed. Blood-Glucose Meter,Continuous (FREESTYLE ALLYSON 3 READER) misc Use to check blood sugar at least four (4) times daily. (Patient not taking: Reported on 09/29/2024) Blood-Glucose Sensor (FREESTYLE ALLYSON 3 PLUS SENSOR) christian Apply new sensor every fifteen (15) days to upper arm. (Patient not taking: Reported on 09/29/2024) cholecalciferol (VITAMIN D3) 1,000 unit tab tablet Take 1 tablet by mouth once daily. (Patient not taking: Reported on 09/29/2024) No current facility-administered medications for this visit. ALLERGIES: ALLERGIES Allergen Reactions Codeine GI Upset, Vomiting Percocet [Oxycodone* Vomiting Solumedrol [Methylp* Mental Status Change Made her rageful Vicodin [Hydrocodon* Vomiting Metformin Other: See Comments Myalgias. Norethindrone GI Upset myalgias, lip/mouth burn, SOB, nausea, dizziness Pepcid [Famotidine * Other: See Comments Dry eyes, mouth, rash, itching, anxiety Tapazole [[place]im[place]* Hives REVIEW OF SYSTEMS: GENERAL: No weight loss, malaise or fevers HEENT: Negative for frequent or significant headaches, No changes in hearing or vision, no nose bleeds or other nasal problems NECK: Negative for lumps, goiter, pain and significant neck swelling RESPIRATORY: Negative for cough, hemoptysis, wheezing, COPD, dyspnea or shortness of breath CARDIOVASCULAR: Negative for chest pain, leg swelling, hypertension, CHF or palpitations GI: No nausea, vomiting, or diarrhea MUSCULOSKELETAL: Negative for joint pain or swelling, back pain or muscle pain SKIN: Negative for lesions, rash, and itching ENDOCRINE: Negative for cold or heat intolerance, polyuria, polydipsia and goiter NEURO: No history of headaches, syncope, paralysis, seizures or tremors All other reviewed and negative other than HPI. PHYSICAL EXAM: BP 140/90 (BP Site: Right Arm, BP Position: Sitting, BP Cuff Size: Regular Adult) Pulse 83 Temp 36.4 C (97.6 F) (Temporal Artery) Wt 94.3 kg (207 lb 12.8 oz) LMP 03/10/2010 SpO2 96% BMI 37.40 kg/m Body mass index is 37.4 kg/m . General Appearance: Well appearing, alert, in no acute distress, obese body habitus Lungs: unlabored breathing on room air Heart: RRR, S1 and S2 normal Abdomen: central obesity LABS: Latest Reference Range & Units 09/08/17 08:22 12/10/17 11:53 05/02/18 16:29 07/27/18 15:18 12/12/18 11:21 06/15/19 09:43 12/04/19 07:49 05/20/20 13:12 12/11/20 11:38 05/09/21 09:58 12/31/21 14:59 05/25/22 15:47 05/21/23 11:37 10/15/23 13:49 12/03/23 14:08 03/07/24 16:30 06/13/24 13:24 06/29/24 14:22 03/12/99 14:01 Hemoglobin A1C 4.3 - 5.6 % 5.8 (H) 6.0 (H) 5.8 (H) 6.0 (H) 6.0 (H) 6.0 (H) 6.0 (H) 5.9 (H) 6.1 (H) 6.3 (H) 6.3 (H) 6.4 (H) 6.1 (H) Estimated Average Glucose mg/dL 120 126 120 126 126 126 126 123 128 134 134 137 128 Insulin 3.0 - 25.0 mU/L 18.9 C-Peptide 1.1 - 4.4 ng/mL 4.6 (H) Insulin-like Growth Factor I 75 - 249 ng/mL TSH 0.40 - 5.50 uU/mL 2.430 1.640 3.940 2.880 0.056 (L) 4.530 (H) 1.580 0.771 0.928 1.690 1.070 0.24 ! ACTH <47 pg/mL 18 35 25 Cortisol ug/dL 29.6 8.2 34.0 (H): Data is abnormally high (L): Data is abnormally low !: Data is abnormal (E): External lab result ASSESSMENT : 58 year old female presenting with concerns of hypoglycemia PLAN: 1. Hypoglycemia 2. Prediabetes Hypoglycemia ruled out from BG, no further evaluation needed. For BG, metabolic syndrome, we discussed metformin , side effects reviewed and she is okay to start this. Start metformin 500 mg daily for 1 week followed by increasing to twice daily. It can be further increased if she is tolerating medication well. Advised checking BG atleast 2 to 3 times weekly on fasting. Asks for sensors. I discussed sensors might not be approved by her insurance on medicaid while on metformin. She reminds she was approved previously but at that time the diagnosis was hypoglycemia, hich has been ruled out Advised to continue to follow with her PCP if possible. If they are not willing to continue her care, she can return Advised patient on lifestyle modifications to lower insulin resistance FOLLOW UP: 3 months if prefers for reasons stated above Medical Decision Making: Problems: Moderate: 1+ chronic illnesses with change Data: Unique test result(s) reviewed: 3+ Risk: Moderate: Drug management Medical Decision Making Level: 4 - Moderate Radha Bernal MD Endocrinology Associate Staff [facility] Endocrinology and Metabolism [place] [phone] documented in this encounter [facility] 09-29-2024 Note Addended by: Lenny NAVA on: 09/29/2024 10:44 AM Modules accepted: Orders [facility] 09-29-2024 Miscellaneous Notes Addended by: FREDDY NAVA on: 09/29/2024 10:44 AM Modules accepted: Orders documented in this encounter [facility] 09-25-2024 History of Present illness Narrative Patient presents with: Follow Up HPI: Patient presents today for office visit for follow up. Discussed her findings. She is reluctant to do liver biopsy. Wants to try weight loss. Has tolerated metformin. Was held due to ? Hypoglycemia which is likely testing error. Has not started questran because carafate caused constipation. Can tell it is improving. Wants to continue and does not want to decrease the dose. Is reallly taking it two or three times a day. Has not been taking the ppi. Wants to consider repeating a scope. Sees endo soon. Note was copied and pasted, without alteration from: Did see hepatology at [facility]. She is wondering about the possibility of bile acid reflux. She would like to try carafate and possibly questran. There was not a mention of bile gastropathy mentioned in her egd. She still has discomfort. Does have chronic diarrhea since her gallbladder was out. No black or bloody stools. Sees Dr Small at [facility]. Getting a color doppler to look at her liver MEDICATIONS: Current Outpatient Medications Medication Sig cholestyramine-sucrose (QUESTRAN) 4 gram powder Take 1 g by mouth two times a day with meals. Mix with 60-180 mL of water or other noncarbonated liquid, highly fluid soup, applesauce or crushed pineapple before ingesting sucralfate (CARAFATE) 1 gram tablet Take 1 tablet by mouth four times daily. RABEprazole (ACIPHEX) 20 mg tablet Take 1 tablet by mouth once daily. Estradiol (ESTROGEL) 1.25 gram/actuation glpm Apply 1 Applicator as directed two times a day. RUB ON SKIN OF THE ARM. Clinician aware that this is a higher dose, we will monitor levels. dicyclomine (BENTYL) 10 mg capsule Take 1 capsule by mouth before meals and at bedtime. Prn Blood-Glucose Meter,Continuous (FREESTYLE ALLYSON 3 READER) [facility] Use to check blood sugar at least four (4) times daily. Blood-Glucose Sensor (FREESTYLE ALLYSON 3 PLUS SENSOR) christian Apply new sensor every fifteen (15) days to upper arm. blood sugar diagnostic (BLOOD GLUCOSE TEST) test strip Test blood sugar(s) 2 times daily. Insulin: No drospirenone, contraceptive, (SLYND) 4 mg (28) tabet Take 1/4 pill daily. Noncontraceptive purpose. Please apply company discount, process as self-pay if insurance does not cover. SYNTHROID 150 mcg tablet Take 1 tablet by mouth once daily. Except 1/2 tab Sun and Sat cholecalciferol (VITAMIN D3) 1,000 unit tab tablet Take 1 tablet by mouth once daily. Lancets lancets Test [...] Abdominal pain, chronic, right upper quadrant Asthma (HCC) As a baby, then I outgrew it. Cystocele, midline 05/13/2009 Delayed emergence from anesthesia 09/27/2014 Depression Excessive or frequent menstruation Heavy periods Fatty liver GERD (gastroesophageal reflux disease) History of Graves' [...] 2 stroke Colon Cancer Father age 64 ND Diabetes Father Type 2 Hypertension Father Coronary Artery Disease Father Hx of ND Thyroid Sister hx of parathyroid disease/ hx of fibroids other (healthy) Brother other (healthy) Brother Allergies Daughter other (healthy) Daughter other (healthy) Son other (healthy) Son other (healthy) Son other (healthy) Son Colon Cancer Paternal Aunt x5 Colon Cancer Paternal Uncle x8 Social History Tobacco Use Smoking status: Every Day Current packs/day: 1.00 Average packs/day: 1 pack/day for 20.0 years (20.0 ttl pk-yrs) Types: Cigarettes Smokeless tobacco: Never Vaping Use Vaping status: Never Used Substance Use Topics Alcohol use: No Drug use: No Reviewed current medications, allergies, past medical history, surgical history, family history and social history today. REVIEW OF SYSTEMS All other reviewed and negative other than HPI. VITALS: BP 150/92 Pulse 75 Wt 94.8 kg (209 lb) LMP 03/10/2010 SpO2 92% BMI 37.62 kg/m Last 4 Encounter Wt Readings: Date: Wt: 09/25/2024 94.8 kg (209 lb) 08/30/2024 95.3 kg (210 lb) 08/04/2024 93.9 kg (207 lb) 07/07/2024 93.4 kg (206 lb) PHYSICAL EXAMINATION: General appearance: Well appearing, alert, in no acute distress, well-hydrated, well nourished. Skin: Skin color, texture, turgor normal, no suspicious rashes or lesions Lungs: Lungs clear to auscultation. No wheezing, rhonchi, rales Heart: RRR without murmur, gallop, or rubs. No ectopy Abdomen: Normal abdominal exam, Abdomen soft, non-tender. Bowel sounds normal. No masses, organomegaly Extremities: No deformities, edema, skin discoloration, clubbing or cyanosis. Good capillary refill. ASSESSMENT/PLAN: 1. Elevated liver enzymes - ICD9: 790.5, ICD10: R74.8 (primary diagnosis) - follow labs. Work on weight loss. Follow with hepatology. - HEPATIC FUNCTION PNL 2. GERD without esophagitis - ICD9: 530.81, ICD10: K21.9 - continue carafate. Want to retry it it with aciphex. - RABEPRAZOLE 20 MG TABLET,DELAYED RELEASE 3. H. pylori infection - ICD9: 041.86, ICD10: A04.8 - RABEPRAZOLE 20 MG TABLET,DELAYED RELEASE Freddy Nava MD documented in this encounter [facility] 09-20-[address] [facility] 09-20-2024 History of Present illness Narrative Images from the original note were not included. Hepatology Clinic Department of Gastroenterology & Hepatology Digestive Disease and Surgery [place] [facility] Date of Service September 20, 2024 VIRTUAL VISIT PROGRESS NOTE This is a virtual visit using Nipendoom Video Visit. It required patient-provider interaction for the medical decision making as documented below. I have communicated my name and active licensure. The patient's identity and physical location were verified at the time of this visit. Either the patient or their legal high school admissions representative has been informed of the risks and benefits of -- and alternatives to -- treatment through a remote evaluation and consents to proceed with the evaluation remotely. Hepatology Clinic - New Patient CC: PHG on EGD Subjective HPI: Maribell Garzon is a 58 year old female known to have Grave disease s/p MONROE ablation on replacement now , post menopausal received estrogen for some time, hx of CCY, Pre DM and severe reflux requiring an EGD which showed moderate PHG.Patient denies any prior diagnosis of liver disease or any family history of liver disease. Says since her oophorectomy , started having weight gain up to 60 pounds and worsening reflux. She was told to get some liver imaging , US doppler showed hepatic steatosis and elastography was presumably normal ( however no result seen on chart ). Now she weighs 210 pounds. She denies any alcohol intake or over the counter meds or supplements. She also denies any GI related complaints besides her severe reflux symptoms. She denies any GI bleed , ascites or confusion episodes. Patient Risk Factors for Liver disease include: ETOH use: No IVD use: No Intra Nasal Cocaine: No Tattoos/Piercings: No High risk sexual behavior: No H/o Transfusions prior to 1989: No Other hepatotoxic medication intake: No Herbal Intake: No Metabolic Syndrome Risk factors: 05/31 1) Diabetes/ Abnormal FBS >100mg/dL: Yes 2) Hypertension : No 3)Triglycerides more then 150 : No 4) HDL (<50 female and <40 male): No 5) Central obesity ( Waist >102 men and >88 female): Yes Endoscopies/Procedures: EGD 05/2024 : ( scanned ) LA B esophagitis Moderate portal hypertensive gastropathy Gastric Bx per patient came back positive for H-pylori , now s/p treatment Past medical history, past surgical history, family history, social history, allergies, and current medications were reviewed and updated. Current Outpatient Medications on File Prior to Visit Medication Sig cholestyramine-sucrose (QUESTRAN) 4 gram powder Take 1 g by mouth two times a day with meals. Mix with 60-180 mL of water or other noncarbonated liquid, highly fluid soup, applesauce or crushed pineapple before ingesting sucralfate (CARAFATE) 1 gram tablet Take 1 tablet by mouth four times daily. RABEprazole (ACIPHEX) 20 mg tablet Take 1 tablet by mouth once daily. Estradiol (ESTROGEL) 1.25 gram/actuation glpm Apply 1 Applicator as directed two times a day. RUB ON SKIN OF THE ARM. Clinician aware that this is a higher dose, we will monitor levels. dicyclomine (BENTYL) 10 mg capsule Take 1 capsule by mouth before meals and at bedtime. Prn Blood-Glucose Meter,Continuous (FREESTYLE ALLYSON 3 READER) misc Use to check blood sugar at least four (4) times daily. Blood-Glucose Sensor (FREESTYLE ALLYSON 3 PLUS SENSOR) christian Apply new sensor every fifteen (15) days to upper arm. blood sugar diagnostic (BLOOD GLUCOSE TEST) test strip Test blood sugar(s) 2 times daily. Insulin: No drospirenone, contraceptive, (SLYND) 4 mg (28) tabet Take 1/4 pill daily. Noncontraceptive purpose. Please apply company discount, process as self-pay if insurance does not cover. SYNTHROID 150 mcg tablet Take 1 tablet by mouth once daily. Except 1/2 tab Sun and Sat cholecalciferol (VITAMIN D3) 1,000 unit tab tablet Take 1 tablet by mouth once daily. Lancets lancets Test [...] Each as needed. No current facility-administered medications on file prior to visit. Review Of Systems: Pertinent positives per HPI. All others reviewed and negative. Physical Exam: GENERAL: Pleasant, NAD SKIN: No rashes or jaundice EYES: Anicteric OROPHARYNX: MMM NECK: Supple LUNGS: CTAB/L CARDIAC: Normal S1S2, regular ABDOMEN: Soft, non-tender, non-distended. BS normal. No masses or hepatosplenomegaly EXTREMITIES: No edema. NEURO: Ox3. No asterixis Vitals: LMP 03/10/2010 Labs: Albumin (g/dL) Date Value 07/26/2024 4.3 Bilirubin, Total (mg/dL) Date Value 07/26/2024 0.4 Bilirubin, Direct (mg/dL) Date Value 06/29/2024 0.1 Alkaline Phosphatase (U/L) Date Value 07/26/2024 83 AST (U/L) Date Value 07/26/2024 21 ALT (U/L) Date Value 07/26/2024 43 (H) Protein, Total (g/dL) Date Value 07/26/2024 7.7 Viral Hepatitis Status: Latest Reference Range & Units Most Recent Hep A Ab, IgM Negative Negative 06/29/24 14:22 Hep B Core Ab, IgM Negative Negative 06/29/24 14:22 Hep B Surface Ag Negative Negative 06/29/24 14:22 Hep C Antibody IA Negative Negative 12/31/21 14:59 HIV 12 Combo (Ag/Ab) Nonreactive Nonreactive 12/31/21 14:59 HIV Interpretation See comment 12/31/21 14:59 Relevant Imaging: US 08/2024 : IMPRESSION: Patent hepatic vasculature with appropriately directed flow. Hepatic steatosis Staging: Liver Bx: none Fibroscan: done - no reports seen. FIB-4 Calculation: 0.93 at 06/29/2024 2:22 PM Calculated from: SGOT/AST: 38 U/L at 06/29/2024 2:22 PM SGPT/ALT: 72 U/L at 06/29/2024 2:22 PM Platelets: 278 k/uL at 06/29/2024 2:22 PM Age: 58 years MELD 3.0: 7 at 06/29/2024 2:22 PM MELD-Na: 6 at 06/29/2024 2:22 PM Calculated from: Serum Creatinine: 0.71 mg/dL (Using min of 1 mg/dL) at 06/29/2024 2:22 PM Serum Sodium: 139 mmol/L (Using max of 137 mmol/L) at 06/29/2024 2:22 PM Total Bilirubin: 0.3 mg/dL (Using min of 1 mg/dL) at 06/29/2024 2:22 PM Serum Albumin: 4.5 g/dL (Using max of 3.5 g/dL) at 06/29/2024 2:22 PM INR(ratio): 1 at 06/29/2024 2:22 PM Age at listing (hypothetical): 58 years Sex: Female at 06/29/2024 2:22 PM Assessment In conclusion, Maribell Garzon is a 58 year old female known to have Grave disease s/p MONROE ablation on replacement now , post menopausal received estrogen for some time, hx of CCY, Pre DM and severe reflux requiring an EGD which showed moderate PHG No prior liver disease diagnosis US doppler showing no signs of portal HTN ( appropriate directed flow , no splenomegaly) ? Inaccurate description of PHG/ congestive gastropathy in setting of H-pylori which was falsely described as PHG? Plan: Discussed with patient that with her high BMI , she has a high risk of having MASLD. It is unclear if she might have some underlying fibrosis and hence portal HTN, although none of her labs or US doppler is showing any signs of PHTN. We talked about need for repeat EGD to check for gastric lining again ( might have improved after H-pylori eradication) vs going for TJLB with pressure gradients to be sure. Fibroscan done outside was presumably ok per patient , while I could not see any reports. She also expressed her concerns about having bile acid reflux as a cause of PHTN gastropathy , I explained to the patient that while bile acid reflux can cause gastritis , it is still a different entity than portal hypertensive gastropathy. Patients would like to think about next steps before proceeding. Return to clinic in 6 months Kasey Joyce MD Transplant Hepatology [facility] - Gastroenterology and Hepatology documented in this encounter [facility] 09-08-2024 History of Present illness Narrative Radiology Service Progress Note PATIENT NAME: Maribell Garzon DATE OF SERVICE: September 08, 2024 TIME: 2:16 PM PATIENT IDENTITY VERIFICATION COMPLETED USING TWO (2) IDENTIFIERS: Name and Date of confirmed by patient verbally and Name and Date of confirmed by identification band. FALL SCREENING: Has the patient had 2 falls in the last year or 1 fall with injury or currently using an Ambulatory Assistive Device (Walker, Cane, Wheelchair, Crutches, etc.)? No PATIENT GENDER DATA: Assigned female at . status: : No status: N/A PATIENT RELEVANT IMPLANT DATA REVIEWED: Not Applicable PATIENT PRESENTS WITH AN IMPLANTABLE OR ATTACHED INSTALLATION TECH: N/A RADIOLOGY DEPARTMENT: Ultrasound PERIPHERAL IV DATA: Not applicable SIGNED BY: Britt Starr RDMS September 08, 2024 2:16 PM documented in this encounter [facility] 09-08-2024 Note HNO ID: [id number] Author: BRITT STARR RDMS Service: ? Author Type: Technologist Type: Progress Notes Filed: 09/08/2024 14:17 Note Text: Radiology Service Progress Note PATIENT NAME: Maribell Garzon DATE OF SERVICE: September 08, 2024 TIME: 2:16 PM PATIENT IDENTITY VERIFICATION COMPLETED USING TWO (2) IDENTIFIERS: Name and Date of confirmed by patient verbally and Name and Date of confirmed by identification band. FALL SCREENING: Has the patient had 2 falls in the last year or 1 fall with injury or currently using an Ambulatory Assistive Device (Walker, Cane, Wheelchair, Crutches, etc.)? No PATIENT GENDER DATA: Assigned female at . status: : No status: N/A PATIENT RELEVANT IMPLANT DATA REVIEWED: Not Applicable PATIENT PRESENTS WITH AN IMPLANTABLE OR ATTACHED INSTALLATION TECH: N/A RADIOLOGY DEPARTMENT: Ultrasound PERIPHERAL IV DATA: Not applicable SIGNED BY: Britt Starr RDMS September 08, 2024 2:16 PM [facility] 08-30-[address] [facility] 08-30-2024 History of Present illness Narrative Patient presents with: Reflux HPI: Patient presents today for office visit for follow up. Did see hepatology at [facility]. She is wondering about the possibility of bile acid reflux. She would like to try carafate and possibly questran. There was not a mention of bile gastropathy mentioned in her egd. She still has discomfort. Does have chronic diarrhea since her gallbladder was out. No black or bloody stools. Sees Dr Small at [facility]. Getting a color doppler to look at her liver. MEDICATIONS: Current Outpatient Medications Medication Sig RABEprazole (ACIPHEX) 20 mg tablet Take 1 tablet by mouth once daily. Estradiol (ESTROGEL) 1.25 gram/actuation glpm Apply 1 Applicator as directed two times a day. RUB ON SKIN OF THE ARM. Clinician aware that this is a higher dose, we will monitor levels. dicyclomine (BENTYL) 10 mg capsule Take 1 capsule by mouth before meals and at bedtime. Prn Blood-Glucose Meter,Continuous (FREESTYLE ALLYSON 3 READER) [facility] Use to check blood sugar at least four (4) times daily. Blood-Glucose Sensor (FREESTYLE ALLYSON 3 PLUS SENSOR) christian Apply new sensor every fifteen (15) days to upper arm. blood sugar diagnostic (BLOOD GLUCOSE TEST) test strip Test blood sugar(s) 2 times daily. Insulin: No drospirenone, contraceptive, (SLYND) 4 mg (28) tabet Take 1/4 pill daily. Noncontraceptive purpose. Please apply company discount, process as self-pay if insurance does not cover. SYNTHROID 150 mcg tablet Take 1 tablet by mouth once daily. Except 1/2 tab Sun and Sat cholecalciferol (VITAMIN D3) 1,000 unit tab tablet Take 1 tablet by mouth once daily. Lancets lancets Test [...] Abdominal pain, chronic, right upper quadrant Asthma (HCC) As a baby, then I outgrew it. Cystocele, midline 05/13/2009 Delayed emergence from anesthesia 09/27/2014 Depression Excessive or frequent menstruation Heavy periods Fatty liver GERD (gastroesophageal reflux disease) History of Graves' [...] 2 stroke Colon Cancer Father age 64 ND Diabetes Father Type 2 Hypertension Father Coronary Artery Disease Father Hx of ND Thyroid Sister hx of parathyroid disease/ hx of fibroids other (healthy) Brother other (healthy) Brother Allergies Daughter other (healthy) Daughter other (healthy) Son other (healthy) Son other (healthy) Son other (healthy) Son Colon Cancer Paternal Aunt x5 Colon Cancer Paternal Uncle x8 Social History Tobacco Use Smoking status: Every Day Current packs/day: 1.00 Average packs/day: 1 pack/day for 20.0 years (20.0 ttl pk-yrs) Types: Cigarettes Smokeless tobacco: Never Vaping Use Vaping status: Never Used Substance Use Topics Alcohol use: No Drug use: No Reviewed current medications, allergies, past medical history, surgical history, family history and social history today. REVIEW OF SYSTEMS All other reviewed and negative other than HPI. HEALTH MAINTENANCE: Reviewed health maintenance issues today and recommended the following in detail. Dilated Retinal Exam Never done Mammogram Screening due on 07/01/2024 VITALS: BP 160/92 Pulse 103 Wt 95.3 kg (210 lb) LMP 03/10/2010 SpO2 98% BMI 37.80 kg/m Last 4 Encounter Wt Readings: Date: Wt: 08/30/2024 95.3 kg (210 lb) 08/04/2024 93.9 kg (207 lb) 07/07/2024 93.4 kg (206 lb) 06/06/2024 98.4 kg (217 lb) PHYSICAL EXAMINATION: General appearance: Well appearing, alert, in no acute distress, well-hydrated, well nourished. Skin: Skin color, texture, turgor normal, no suspicious rashes or lesion Lungs: Lungs clear to auscultation. No wheezing, rhonchi, rales Heart: RRR without murmur, gallop, or rubs. No ectopy Abdomen: Normal abdominal exam, Abdomen soft, non-tender. Bowel sounds normal. No masses, organomegaly Extremities: No deformities, edema, skin discoloration, clubbing or cyanosis. Good capillary refill. ASSESSMENT/PLAN: 1. Gastroesophageal reflux disease without esophagitis - ICD9: 530.81, ICD10: K21.9 (primary diagnosis) - add meds after discussion. Questran will help with post choley diarrhea as well. Discussed risks and benefits of new medication with the patient. Advised them to call if any side effects or questions. - CHOLESTYRAMINE (WITH SUGAR) 4 GRAM ORAL POWDER - SUCRALFATE 1 GRAM TABLET 2. Portal hypertensive gastropathy (HCC) - ICD9: 572.3, 537.89, ICD10: K76.6, K31.89 - continue per gi. Freddy Nava MD RTO in four to six weeks. documented in this encounter [facility] 08-23-2024 Evaluation note Diagnosis Onset Date Resolution H. pylori infection chronic August 23, 2024 3:21pm Metabolic dysfunction-associated steatotic liver disease (MASLD) chronic August 23, 2024 3:21pm Portal hypertensive gastropathy chronic August 23, 2024 3:21pm Sleep apnea acute November 22 2:49pm Solitary pulmonary nodule acute Estela 30th, 2025 2:49pm GERD (gastroesophageal reflux disease) chronic November 22, 2024 2:49pm Nicotine dependence, cigarettes, uncomplicated chronic November 22, 2024 2:49pm Metabolic dysfunction-associated steatotic liver disease (MASLD) chronic November 27, 2024 2:50pm Portal hypertensive gastropathy chronic November 27, 2024 2:50pm [facility] Work Phone: [phone]) 663-826804-11-[address] [facility] History of Present illness Narrative* Freddy Nava MD - 08/04/2024 2:59 PM EDT Patient presents with: Follow Up HPI: Patient presents today for office visit for follow up. Saw endo and cardiology. Sees gi next month. Getting a stress test. Endo does not think she is diabetic. They are ruling out reactive hypoglycemia and have seen what we are seeing here that the new cgms seem to be less accurate. Home bp has been ok. A lot stress today. Will follow. Suggested b6. Supplement. Has an appt on 09/20 with gi at [facility] now. Reviewed labs are stable. Note waAlpha 1 antitrypsin is still pending. Just had fibroscan at [facility] which showed moderate fibrosis and fatty liver. Had a benign appearing renal cyst. Those have been noted on previous scans. Was in the ER at [facility] on 07/04 for evaluation of palpitations. Work up negative and discharged home. No arrhythmia per report on monitor. Every time she takes the medications for her h pylori, she as issues with it. She is having palpations and skin burning a few hours Wants to try aciphex along with her amoxil and clarithromycin. Seeing gi in the month. She asks me to recheck her iron. She wants her vitamins an anti inflammatory levels checked. No black or bloody stools No new chest pains or shortness of breath. We want to double check her antimitochondrial antibodies for her liver work up Will send everything to gi once done. She is working on her weight. Has lost 10 lbs s copied and pasted, without alteration from: Latest Ref Rng 07/26/2024 Protein, Total 6.3 - 8.0 g/dL 7.7 Albumin 3.9 - 4.9 g/dL 4.3 Calcium 8.5 - 10.2 mg/dL 9.6 Bilirubin, Total 0.2 - 1.3 mg/dL 0.4 Alkaline Phosphatase 34 - 123 U/L 83 AST 13 - 35 U/L 21 ALT 7 - 38 U/L 43 (H) Glucose 74 - 99 mg/dL 120 (H) BUN 7 - 21 mg/dL 9 Creatinine 0.58 - 0.96 mg/dL 0.72 Sodium 136 - 144 mmol/L 141 Potassium 3.7 - 5.1 mmol/L 3.7 Chloride 98 - 107 mmol/L 106 CO2 22 - 30 mmol/L 25 Anion Gap 8 - 15 mmol/L 10 eGFR >=60 mL/min/1.73m 97 Iron 41 - 186 ug/dL 105 TIBC 232 - 386 ug/dL 394 (H) Transferrin Saturation 15.0 - 57.0 % 26.6 Mitochondrial Ab Screen Negative Negative Mitochondrial M2 IgG Quantitative <=20.0 Units 14.5 WSR 0 - 20 mm/hr 12 CRP <0.9 mg/dL <0.3 Rheumatoid Factor <16 IU/mL <10 Folate >4.7 ng/mL 6.8 Methylmalonic Acid <=0.40 umol/L 0.08 Vitamin B6, Plasma 20.0 - 125.0 nmol/L 14.7 (L) Vitamin B1 (TDP), Whole Blood 84.3 - 213.3 nmol/L 232.5 (H) Vitamin A 0.30 - 1.20 mg/L 0.30 Ferritin 14.7 - 205.1 ng/mL 173.0 Legend: (H) High (L) Low MEDICATIONS: Current Outpatient Medications Medication Sig ALPRAZolam (XANAX) 0.25 mg tablet Take 1 tablet by mouth three times a day as needed for up to 30 days. Estradiol (ESTROGEL) 1.25 gram/actuation glpm Apply 1 Applicator as directed two times a day. RUB ON SKIN OF THE ARM. Clinician aware that this is a higher dose, we will monitor levels. dicyclomine (BENTYL) 10 mg capsule Take 1 capsule by mouth before meals and at bedtime. Prn Blood-Glucose Meter,Continuous (FREESTYLE ALLYSON 3 READER) misc Use to check blood sugar at least four (4) times daily. Blood-Glucose Sensor (FREESTYLE ALLYSON 3 PLUS SENSOR) christian Apply new sensor every fifteen (15) days to upper arm. blood sugar diagnostic (BLOOD GLUCOSE TEST) test strip Test blood sugar(s) 2 times daily. Insulin: No drospirenone, contraceptive, (SLYND) 4 mg (28) tabet Take 1/4 pill daily. Noncontraceptive purpose.Please apply company discount, process as self-pay if insurance does not cover. SYNTHROID 150 mcg tablet Take 1 tablet by mouth once daily. Except 1/2 tab Sun and Sat cholecalciferol (VITAMIN D3) 1,000 unit tab tablet Take 1 tablet by mouth once daily. Lancets lancets Test [...] Abdominal pain, chronic, right upper quadrant Asthma (HCC) As a baby, then I outgrew it. Cystocele, midline 05/13/2009 Delayed emergence from anesthesia 09/27/2014 Depression Excessive or frequent menstruation Heavy periods Fatty liver GERD (gastroesophageal reflux disease) History of Graves' [...] 2 stroke Colon Cancer Father age 64 ND Diabetes Father Type 2 Hypertension Father Coronary Artery Disease Father Hx of ND Thyroid Sister hx of parathyroid disease/ hx of fibroids other (healthy) Brother other (healthy) Brother Allergies Daughter other (healthy) Daughter other (healthy) Son other (healthy) Son other (healthy) Son other (healthy) Son Colon Cancer Paternal Aunt x5 Colon Cancer Paternal Uncle x8 Social History Tobacco Use Smoking status: Every Day Current packs/day: 1.00 Average packs/day: 1 pack/day for 20.0 years (20.0 ttl pk-yrs) Types: Cigarettes Smokeless tobacco: Never Vaping Use Vaping status: Never Used Substance Use Topics Alcohol use: No Drug use: No Reviewed current medications, allergies, past medical history, surgical history, family history andsocial history today. REVIEW OF SYSTEMS All other reviewed and negative other than HPI. VITALS: BP 152/90 Pulse 96 Ht 158.8 cm (5' 2.5) Wt 93.9 kg (207 lb) LMP 03/10/2010 SpO2 95% BMI 37.26 kg/m Last 4 Encounter Wt Readings: Date: Wt: 07/07/2024 93.4 kg (206 lb) 06/06/2024 98.4 kg (217 lb) 11/29/2023 95.7 kg (211 lb) 11/16/2023 95.3 kg (210 lb) PHYSICAL EXAMINATION: General appearance: Well appearing, alert, in no acute distress, well-hydrated, well nourished. Skin: Skin color, texture, turgor normal, no suspicious rashes or lesions Head: Normocephalic, no masses, lesions, tenderness or abnormalities Lungs: Lungs clear to auscultation. No wheezing, rhonchi, rales Heart: RRR without murmur, gallop, or rubs. No ectopy Abdomen: Normal abdominal exam, Abdomen soft, non-tender. Bowel sounds normal. No masses, organomegaly Extremities: No deformities, edema, skin discoloration, clubbing or cyanosis. Good capillary refill. ASSESSMENT/PLAN: 1. Hypoglycemia - ICD9: 251.2, ICD10: E16.2 (primary diagnosis) - follow with endo and watch diet. Limit watching for low sugars, with cgm 2. Impaired glucose tolerance - ICD9: 790.22, ICD10: R73.02 -as above. Not diabetic per endo. 3. GERD without esophagitis - ICD9: 530.81, ICD10: K21.9 - tolerating med. Has finished h pylori tx and feels well. Follow with hepatology for her live. - RABEPRAZOLE 20 MG TABLET,DELAYED RELEASE 4. H. pylori infection - ICD9: 041.86, ICD10: A04.8 - treated. - RABEPRAZOLE 20 MG TABLET,DELAYED RELEASE Freddy Nava MD RTO in 8 weeks or prn. [facility]* Diagnosis Onset Date Resolution Status Admit Date Abnormal chest CT acute August 022024 3:06pm Sinus tachycardia acute August 022024 3:06pm H. 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04-08-2025 Miscellaneous Notes* Telephone Encounter - Maribell Garcia MA - 08/01/2024 5:03 PM EDT Completed [facility] Instructions* Patient Instructions* Radha Bernal MD - 07/26/2024 9:08 AM EDT Please check blood sugars with finger sticks only when you have symptoms - make a log of blood sugars checked mentioning information about if fasting or post meal, how much time after eating if post meal, type of food consumed before the symptoms, type of food consumed to resolve the symptoms and the time taken documented [facility] [facility] History of Present illness Narrative* Radha Bernal MD - 07/26/2024 8:38 AM EDT [facility] Initial Clinic Visit Note Virtual Visit (Audio/Visual)I have discussed the nature of this visit with the patient which will occur via [facility] (Phone, Virtual Visit) and she agrees to proceed with this interaction. I have communicated my name and active licensure. The patient's identity and physical location wereverified at the time of this visit. Either the patient or their legal high school admissions representative has been informed of the risks and benefits of -- and alternatives to -- treatment through a remote evaluation andconsents to proceed with the evaluation remotely. The patient consented to the use of ambient [employer] software for draft documentation of the visit consistent with [facility] s Notice of Privacy Practices. Consulted by: Freddy Nava MD (PCP) Chief Complaint: Hypoglycemia, Type 2 DM with no known diabetic complications My final recommendations will be communicated back to the requesting physician by way of shared medical record or letter via US mail. HPI: This is a 58 year old pleasant female who presents with concerns with symptoms associated withblood sugars. 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 Daughter is a nurse as well Hx of diabetes in son. She has noted having symptoms of redness of skin, feels very sick especially postprandially sometimes, with dizziness, feels cold (no hot flashes) like cold flashes, no sweating reported, has palpitations, and has tremors on some occasions, when her sugar drops, and has started experiencing these symptoms after oophorectomy in 2014 - Blood glucose levels can rise to 190 mg/dL postprandially and then drop quickly to 60-70 mg/dL. Denies drops in sugars on fasting. - Noted that consuming carbohydrates alone leads to rapid increases and subsequent quick drops in blood glucose levels. - Consumes candy or cheese to raise blood glucose levels during hypoglycemic episodes. - Reports a significant drop in blood glucose from 192 mg/dL to 67 mg/dL within two hours after consuming an ice cream . - Consuming protein with carbohydrates helps maintain stable blood glucose levels. - Experiences drowsiness when blood glucose levels reach 150 mg/dL, and extreme fatigue at 180 mg/dL. - Previously was prescribed metformin 500 mg BID, which was discontinued due to inducing hypoglycemic episodes. 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 - Confirms CGM readings with fingerstick tests, when most times she has noted that the finger sticksugars were higher in 70ss when CGM showed 60s, while sometimes it was accurate in 60s on finger sticks. Lowest BG in the recent past was 58 mg/dl as reported today - she denied any N/V, weight loss. Has diarrhea intermittently since cholecystectomy but no changesrecently - denied any weight loss or other gastric surgeries - denied significant alcohol use - denied any over the counter supplements, medications not on her med list currently She has a hx of PCOS, diagnosed by high testosterone levels since early 20s. - Has six children and did not experience issues with fertility. - Reports being very muscular and slender before oophorectomy in 2014 due to a large ovarian cyst. - Pathology report post-surgery suggested a string of pearls appearance, indicative of PCOS. - Noted significant weight gain and fatigue post-oophorectomy. Per chart review, she was menopausalby the time of surgery, more like at the age of 43 years per documentation, with sudden cessation of menses following a traumatic event (father's ), which she was told was possible by her OBGYN.Never used HRT until oophorectomy due to symptoms described above - Has been on estrogen therapy now, which improves symptoms suspected of hypoglycemia partially andstabilizes blood glucose levels. - Reports difficulty losing weight, with a recent 10-pound weight loss achieved through strict dietand exercise. - Denies recent unintentional weight loss. SVT was diagnosed with a single episode recorded on a monitor. - Denies experiencing symptoms during the recorded episode. - Evaluated by an fruit distributor who attributed the SVT to an underlying condition rather thana primary cardiac issue. - Did not check blood glucose levels during the SVT episode. She reports seeing Dr. Reinoso several years ago, and was proposed to start metformin for reactive hypoglycemia, with option to start back then vs later, and patient reports opting for later - Recently diagnosed with portal hypertension gastropathy following an EGD for severe reflux - Scheduled to see a liver specialist in August. - Reports elevated liver enzymes for the first time. She reports this was suspected due to having high blood sugars - Underwent a liver scan (FibroScan) recently. Of note, she was also seen by Dr. Ortiz for cortisol issues and hypothyroidism in the past. Labs for adrenals hormones have been reviewed on chart. PAST MEDICAL HISTORY: PAST MEDICAL HISTORY Diagnosis Date Abdominal pain, chronic, right upper quadrant Asthma As a baby, then I outgrew it. Cystocele, midline 05/13/2009 Delayed emergence from anesthesia 09/27/2014 Depression Excessive or frequent menstruation Heavy periods Fatty liver GERD (gastroesophageal reflux disease) History of Graves' [...] Tele Tobacco use Weight gain PAST SURGICAL HISTORY: PAST SURGICAL HISTORY Procedure Laterality Date COLONOSCOPY 04/2017 says nl CONIZATION CERVIX W/WO D&C RPR ELTRD EXC 2001 LEEP-Cervix ESOPHAGOGASTRODUODENOSCOPY TRANSORAL DIAGNOSTIC 01/22/2014,2009 EGD LAPAROSCOPY SURG CHOLECYSTECTOMY 05/19/2011 LIG/TRNSXJ FLP TUBE ABDL/VAG APPR UNI/BI 2003 Tubal ligation OOPHORECTOMY PARTIAL/TOTAL UNI/BI 09/2014 laparoscopic left, CW, umbilical/upper abdominal adhesions seen benign PAST SURGICAL HISTORY OF 1998 tubal PAST SURGICAL HISTORY OF 2001 thyroid ablation FAMILY HISTORY: FAMILY HISTORY Problem Relation Age of Onset Diabetes Mother Type 2 stroke Colon Cancer Father age 64 ND Diabetes Father Type 2 Hypertension Father Coronary Artery Disease Father Hx of ND Thyroid Sister hx of parathyroid disease/ hx of fibroids other (healthy) Brother other (healthy) Brother Allergies Daughter other (healthy) Daughter other (healthy) Son other (healthy) Son other (healthy) Son other (healthy) Son Colon Cancer Paternal Aunt x5 Colon Cancer Paternal Uncle x8 SOCIAL HISTORY: Social History Tobacco Use Smoking status: Every Day Current packs/day: 1.00 Average packs/day: 1 pack/day for 20.0 years (20.0 ttl pk-yrs) Types: Cigarettes Smokeless tobacco: Never Vaping Use Vaping status: Never Used Substance Use Topics Alcohol use: No Drug use: No MEDICATIONS: Current Outpatient Medications Medication Sig ALPRAZolam (XANAX) 0.25 mg tablet Take 1 tablet by mouth three times a day as needed for up to 30 days. vonoprazan/amoxicillin/clarith (VOQUEZNA TRIPLE FRANCIS ORAL) Estradiol (ESTROGEL) 1.25 gram/actuation glpm Apply 1 Applicator as directed two times a day. RUB ON SKIN OF THE ARM. Clinician aware that this is a higher dose, we will monitor levels. dicyclomine (BENTYL) 10 mg capsule Take 1 capsule by mouth before meals and at bedtime. Prn Blood-Glucose Meter,Continuous (FREESTYLE ALLYSON 3 READER) misc Use to check blood sugar at least four (4) times daily. Blood-Glucose Sensor (FREESTYLE ALLYSON 3 PLUS SENSOR) christian Apply new sensor every fifteen (15) days to upper arm. blood sugar diagnostic (BLOOD GLUCOSE TEST) test strip Test blood sugar(s) 2 times daily. Insulin: No drospirenone, contraceptive, (SLYND) 4 mg (28) tabet Take 1/4 pill daily. Noncontraceptive purpose.Please apply company discount, process as self-pay if insurance does not cover. SYNTHROID 150 mcg tablet Take 1 tablet by mouth once daily. Except 1/2 tab Sun and Sat cholecalciferol (VITAMIN D3) 1,000 unit tab tablet Take 1 tablet by mouth once daily. Lancets lancets Test [...] mouth, rash, itching, anxiety Tapazole [[place]* Hives REVIEW OF SYSTEMS: GENERAL: No weight loss, malaise or fevers HEENT: Negative for frequent or significant headaches, No changes in hearing or vision, no nose bleeds or other nasal problems NECK: Negative for lumps, goiter, pain and significant neck swelling RESPIRATORY: Negative for cough, hemoptysis, wheezing, COPD, dyspnea or shortness of breath CARDIOVASCULAR: Negative for chest pain, leg swelling, hypertension, CHF or palpitations GI: No nausea, vomiting, or diarrhea MUSCULOSKELETAL: Negative for joint pain or swelling, back pain or muscle pain SKIN: Negative for lesions, rash, and itching ENDOCRINE: Negative for cold or heat intolerance, polyuria, polydipsia and goiter NEURO: No history of headaches, syncope, paralysis, seizures or tremors All other reviewed and negative other than HPI. PHYSICAL EXAM: [facility] 03/10/2010 There is no height or weight on file to calculate BMI. General Appearance: Well appearing, alert, in no acute distress, obese body habitus LABS: Latest Reference Range & Units 09/08/17 08:22 12/10/17 11:53 05/02/18 16:29 07/27/18 15:18 12/12/18 11:21 06/15/19 09:43 12/04/19 07:49 05/20/20 13:12 12/11/20 11:38 05/09/21 09:58 12/31/21 14: 15:47 05/21/23 11:37 10/15/23 13:49 12/03/23 14:08 03/07/24 16:30 06/13/24 13:24 06/29/24 14:22 03/12/99 14:01 Hemoglobin A1C 4.3 - 5.6 % 5.8 (H) 6.0 (H) 5.8 (H) 6.0 (H) 6.0 (H) 6.0 (H) 6.0 (H) 5.9 (H) 6.1 (H) 6.3 (H) 6.3 (H) 6.4 (H) 6.1 (H) Estimated Average Glucose mg/dL 120 126 120 126 126 126 126 123 128 134 134 137 128 Insulin 3.0 - 25.0 mU/L 18.9 C-Peptide 1.1 - 4.4 ng/mL 4.6 (H) Insulin-like Growth Factor I 75 - 249 ng/mL TSH 0.40 - 5.50 uU/mL 2.430 1.640 3.940 2.880 0.056 (L) 4.530 (H) 1.580 0.771 0.928 1.690 1.070 0.24 ! ACTH <47 pg/mL 18 35 25 Cortisol ug/dL 29.6 8.2 34.0 (H): Data is abnormally high (L): Data is abnormally low !: Data is abnormal (E): External lab result ASSESSMENT : 58 year old female presenting with concerns of hypoglycemia PLAN: 1. Hypoglycemia 2. Prediabetes Although referral indicates type 2 Diabetes mellitus, patient has prediabetes based on Hba1c and Glucose readings on recent labs, and she is not on any medication to lower blood glucose levels, hencethis cannot be considered T2DM Given history and symptoms, there is a chance she could be having impaired glucose tolerance and reactive drop in glucose levels/reactive hypoglycemia. No concerns for AI or cancer at this time. Unlikely related to medications, supplements This does not fulfil whipple's triad. She does not have low BG every time she has symptoms or when sensor is showing low reading. I reviewed that sensors are not very sensitive for hypoglycemia and recommended not using them any more for glucose readings I recommended patient to document sugars with finger sticks when symptoms occur, along with timing after food, and time taken for symptoms to be relieved after food She has Glucose monitor and supplies to check BG - advised bringing glucose log on next appt Reviewed we can use diet modifications and directed therapy if confirmed to have reactive hypoglycemia, Advised patient on lifestyle modifications to lower insulin resistance as metformin has caused lowsin the past FOLLOW UP: 6 to 8 weeks Medical Decision Making: Problems: Moderate: New problem with uncertain prognosis Data: Unique test result(s) reviewed: 3+ Independent interpretation of test from other physician/QHCP Medical Decision Making Level: 4 - Moderate Radha Bernal MD Endocrinology Associate Staff [facility] Specialty & Surgery [facility] Endocrinology and Metabolism [place] [phone] documented in this encounterSt. Elizabeth Hospital03-14-[address] [facility] History of Present illness Narrative* Freddy Nava MD - 07/07/2024 3:16 PM EDT Patient presents with: flushing: ER gave her benedryl and pepcid thinking allergic reaction. CT scan at [facility] today showing infiltrate. HPI: Patient presents today for office visit for follow up. Recently saw her. Presented today after follow up ct of her nodule. Was called by pulmonary who asked if she was ill. Reviewing ct it shows ? New infiltrate. The question has been whether her infiltrate previously wasrelated to aspiration. No fever or chills or cough. She was taken off her voquenza due to ? Allergic reaction. She was complaining of flushing althoughshe has had it on and off for some time. Usually when she is off of her hormone therapy. We discussed resuming. She again was recently diagnosed with h pylori and has two weeks of clarithromycin and amoxil at home as well as aciphex. Discussed that if there was an infectious infiltrate the antibiotics might well cover that as well. After discussion we will start that. Also encouraged her to resume her hormones to see that helps. She also has coronary calcifications present however they do not estimate extent. Previous cts havecalled them not significant. No chest pain or worsening symptoms suggestive of angina. Had chronic palpitations worse recently and has upcoming appt with cardiology. Has appt with Dr Alessio guerrero. Reviewed her liver issues yesterday. Will send notes again so they have them. She sees endo soon due to her cgm showing some low spells occasionally. She has seen endo in the past and had adrenal work up. Has an adrenal nodule seen that has been felt to be benign. Following with pulmonary as well. Is very stressed. We discussed risks and benefits of short term use of benzo. Has tolerated them in the past. MEDICATIONS: Current Outpatient Medications Medication Sig RABEprazole (ACIPHEX) 20 mg tablet Take 1 tablet by mouth two times a day for 14 days. vonoprazan/amoxicillin/clarith (VOQUEZNA TRIPLE FRANCIS ORAL) Estradiol (ESTROGEL) 1.25 gram/actuation glpm Apply 1 Applicator as directed two times a day. RUB ON SKIN OF THE ARM. Clinician aware that this is a higher dose, we will monitor levels. dicyclomine (BENTYL) 10 mg capsule Take 1 capsule by mouth before meals and at bedtime. Prn Blood-Glucose Meter,Continuous (FREESTYLE ALLYSON 3 READER) [facility] Use to check blood sugar at least four (4) times daily. Blood-Glucose Sensor (FREESTYLE ALLYSON 3 PLUS SENSOR) christian Apply new sensor every fifteen (15) days to upper arm. blood sugar diagnostic (BLOOD GLUCOSE TEST) test strip Test blood sugar(s) 2 times daily. Insulin: No drospirenone, contraceptive, (SLYND) 4 mg (28) tabet Take 1/4 pill daily. Noncontraceptive purpose.Please apply company discount, process as self-pay if insurance does not cover. SYNTHROID 150 mcg tablet Take 1 tablet by mouth once daily. Except 1/2 tab Sun and Sat cholecalciferol (VITAMIN D3) 1,000 unit tab tablet Take 1 tablet by mouth once daily. Lancets lancets Test [...] Depression Excessive or frequent menstruation Heavy periods Fatty liver GERD (gastroesophageal reflux disease) History of Graves' [...] 2 stroke Colon Cancer Father age 64 ND Diabetes Father Type 2 Hypertension Father Coronary Artery Disease Father Hx of ND Thyroid Sister hx of parathyroid disease/ hx of fibroids other (healthy) Brother other (healthy) Brother Allergies Daughter other (healthy) Daughter other (healthy) Son other (healthy) Son other (healthy) Son other (healthy) Son Colon Cancer Paternal Aunt x5 Colon Cancer Paternal Uncle x8 Social History Tobacco Use Smoking status: Every Day Current packs/day: 1.00 Average packs/day: 1 pack/day for 20.0 years (20.0 ttl pk-yrs) Types: Cigarettes Smokeless tobacco: Never Vaping Use Vaping status: Never Used Substance Use Topics Alcohol use: No Drug use: No Reviewed current medications, allergies, past medical history, surgical history, family history andsocial history today. REVIEW OF SYSTEMS All other reviewed and negative other than HPI. HEALTH MAINTENANCE: Reviewed health maintenance issues today and recommended the following in detail. Dilated Retinal Exam Never done Mammogram Screening due on 07/01/2024 VITALS: BP 162/102 Pulse 91 Wt 93.4 kg (206 lb) LMP 03/10/2010 SpO2 95% BMI 37.08 kg/m Last 4 Encounter Wt Readings: Date: Wt: 07/07/2024 93.4 kg (206 lb) 06/06/2024 98.4 kg (217 lb) 11/29/2023 95.7 kg (211 lb) 11/16/2023 95.3 kg (210 lb) PHYSICAL EXAMINATION: General appearance: Well appearing, alert, in no acute distress, well-hydrated, well nourished. Skin: Skin color, texture, turgor normal, no suspicious rashes or lesions Head: Normocephalic, no masses, lesions, tenderness or abnormalities Lungs: Lungs clear to auscultation. No wheezing, rhonchi, rales Heart: RRR without murmur, gallop, or rubs. No ectopy Abdomen: Normal abdominal exam, Abdomen soft, non-tender. Bowel sounds normal. No masses, organomegaly Extremities: No deformities, edema, skin discoloration, clubbing or cyanosis. Good capillary refill. ASSESSMENT/PLAN: 1. Bacterial pneumonia - ICD9: 482.9, ICD10: J15.9 (primary diagnosis) - start antibiotics. Will require repeat imaging. Red flags for re-assessment reviewed with patient in detail. 2. Flushing - ICD9: 782.62, ICD10: R23.2 See endo. Check labs. - CATECHOLAMINES FRACTIONATED, URINE FREE - VMA 24 HR URINE - METANEPHRINES 24H UR - HIAA-5 QUANT 24H UR 3. Anxiety - ICD9: 300.00, ICD10: F41.9 - oarrs done. Use for short term - ALPRAZOLAM 0.25 MG TABLET 4. SVT (supraventricular tachycardia) (HCC) - ICD9: 427.89, ICD10: I47.10 See cardiology. Call if any issues. 5. Impaired glucose tolerance - ICD9: 790.22, ICD10: R73.02 - see previous notes. Follow progress and see endo. 6. Elevated bp Home bp has been good. I think today is due to stress. Recheck in follow up appt in three weeks or prn. Continue to follow at home. Freddy Nava MD documented in this encounterSt. Elizabeth Hospital03-14-2025 Radiology Diagnostic study note [facility] Imaging Services [address] [place] [address] Chest without Contrast MR#: [id number] Acct: [id number] Name: MARIBELL GARZON Rep #: [id number] : 1965 F 58 From: Benjie Bailon MD PCP: Dr. Freddy Nava MD Status: REG C MANN Study:Chest without Contrast Date of Exam: 07/07/24 Exam# [id number] Ordering Dr: Torie Cornell CLINICAL REVIEW SPECIALIST-C PROCEDURE: CHEST WITHOUT CONTRAST 07/07/2024 REASON FOR EXAM: RUL LLL NODULE FOLLOW UP TECHNIQUE: Chest CT without contrast. Coronal and Sagittal reconstruction series were provided. One or more dose reduction techniques were used (e.g., Automated exposure control, adjustment of the mA and/or kV according to patient size, use of iterative reconstruction technique COMPARISON: Comparison is made with prior study dated May 12, 2024. RADIATION DOSE SUMMARY: CTDlvol: 12.88 mGy DLP: 444.93 mGycm FINDINGS: Hardware: None Lymph nodes: Small benign-appearing mediastinal lymph nodes. Heart and Vasculature: . Atherosclerotic calcifications of the thoracic aorta. Thoracic aorta and pulmonary arteries have normal contours; noncontrast technique limits evaluation. Coronary Artery Calcifications: Present Lungs and Airways: Focal infiltrate is seen in the lateral aspect of the right middle lobe. This may represent focal pneumonia. This was not present on prior study. Radiographic follow-up is recommended. Stable 1.5 cm x 1.4 cm well-defined nodule in the posterior aspect of the right upper lobe as seen on axial image number 44 and coronal image number 50. Pleura: Unremarkable Upper Abdomen: Status post cholecystectomy. Bones: Degenerative changes of the thoracic spine. CT/Chest without Contrast IMPRESSION: New focal infiltrate in the peripheral lateral aspect of the right middle lobe. Radiographic follow-up recommended. Stable 1.5 cm x 1.4 cm well-defined nodule in the posterior aspect of the right upper lobe as seen on axial image number 44 and coronal image number 50 correlation with a PET scan recommended. Reading Location: [facility]1 CC: Dr. Freddy Nava MD; Torie Cornell NP ~ Lap Winding Machine Operator: Signed [facility]03-13-2025 Telephone encounter Note* Telephone Encounter - Renee Prado MA - 07/06/2024 2:43 PM EDT All labs from May to present faxed to Dr. Martinez's office. Pt notified via Reddit. Renee Prado MA [facility]03-13-2025 Miscellaneous Notes* Telephone Encounter - Renee Prado MA - 07/06/2024 2:43 PM EDT All labs from May to faxed to Dr. Martinez's office. Pt notified via [place]. Renee Prado MA documented in this encounterSt. Elizabeth Hospital03-13-2025 Telephone encounter Note * Telephone Encounter - Robina Combs RN - 07/06/2024 11:03 AM EDT LV 07/06/24 PLAN: The following diagnoses were relevant to this visit: (N95.9) Menopausal and perimenopausal disorder (primary encounter diagnosis) (E34.9) Hormonal disorder (K76.0) Fatty liver (I47.10) SVT (supraventricular tachycardia) (HCC) She will plan to start: Has an appointment 11/17. See me sooner if needed. Slynd 1/4 (at least one week, she may increase to 1/2 pill) Estrogel 1 pump bid Hold off testosterone Also encouraged her to set up every 2-mgdghVhqxmn-ibs throughout this year. No orders found for this visit on 07/06/24. Paul Duron MD Pt would like [facility]el [facility]. Robina Combs RN July 06, 2024 11:[address] [facility]03-13-2025 Miscellaneous Notes* Telephone Encounter - Robina Combs RN - 07/06/2024 11:03 AM EDT 07/06/24 PLAN: The following diagnoses were relevant to this visit: (N95.9) Menopausal and perimenopausal disorder (primary encounter diagnosis) (E34.9) Hormonal disorder (K76.0) Fatty liver (I47.10) SVT (supraventricular tachycardia) (HCC) She will plan to start: Has an appointment 11/17. See me sooner if needed. Slynd 1/4 (at least one week, she may increase to 1/2 pill) Estrogel 1 pump bid Hold off testosterone Also encouraged her to set up every 4-dbxliRvuoin-rwu throughout this year. No orders found for this visit on 07/06/24. Paul Duron MD Pt would like [facility]. Robina Combs RN July 06, 2024 11:05 AM documented in this encounterSt. Elizabeth Hospital03-13-[address] [facility]03-[facility]-20[facility] History of Present illness Narrative* Paul Duron MD - 07/06/2024 9:39 AM EDT I spent a total of 34 minutes on the date of the service which included preparing to see the patient, ilyf-dx-hrpf patient care, completing clinical documentation, obtaining and/or reviewing separately obtained history, counseling and educating the patient/family/caregiver, and independently interpr eting results (not separately reported). My name and active licensure communicated. The patient's identity and physical location were verified at the time of this visit. Either the patient or their legal high school admissions representative has been informed of the risks and benefits of -- and alternatives to -- treatment through a remote evaluation and consents to proceed with the evaluation remotely. * Paul Duron MD - 07/06/2024 9:04 AM EDT Virtual visit, July 06, 2024 Start review of records, labs, interim events 9:04 AM Maribell Garzon is 58 year old. Mammogram Screening due on 07/01/2024 I have been seeing her since 11/[address] Angelo for hormonal concerns. Last in person visit with me 08/17. 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 Has had hormonal sensitivitiesthroughout her life, difficulty tolerating any hormonal regimens. Profound PMS symptoms: heart racing, dizzy, muscle tension within 12 hours prior her cycle starting. Within 2 min of bleeding the sxswould resolve, this would occur consistently. Hx of ovarian cysts and likely PCOS (always felt better with high androgens), s/p left oophorectomy for benign reasons (path reviewed). LMP in 2009, age 42-43. Lab confirmed menopause-soon after gynecologic surgery. Debilitating symptoms since surgery, disabled from work, unable to drive- states essentially had been in a chair since age 50. When in menopause many of the symptoms that she would experience premenstrually got much worse. Including arthralgias, told fibromyalgia, she did not believe diagnosis. Anxiety was bad, tried multiple meds. Dryeyes, severe. Burning mouth (goes away completely with the ET). Brain fog. Has been seeing medical providers for multiple concerns. Is heterozygous for MTHFR mutation, never had a VTE with 6 pregnancies. Did see hematology who said can use estrogen, but prefer transdermals. She has also been dealing with hyperthyroidism. Has had several setbacks with respiratory illnesses and other medical issues, especially fall 2020 & early 2024 which she feels impacted her hormones, or she needed to takea break. Tested as a a CYP supermetabolizer, feels that she metabolizes the estrogen too quickly. We have been trying a variety of regimens as noted below, most not tolerated. We have been trying to g et her to tolerate the E2 and P individually-with detailed conversation about endometrial safety. Common themes over time include immediate symptom relief with the estrogen (mood, hair, moisture ofmucous membranes), but the levels are not sustained with the typical frequency of the formulations.When she gets too much estrogen gets fluid [...] in the past (prior to her surgery). For the estrogen: feels the EstroGel 2-3 times a day was well-tolerated. When using twice a day, the 50 g lasted a little over a month. Had been getting from [facility] leading to some delays. In past also liked 0.3 ml bid of the biest (04/16). Based on my calculation, she was getting approximately 1.2mg of estradiol, as well as estriol. For the progestin: Throughout 2021 got her to tolerate a progestin first (long history of progestinintolerance), and by 03/17 Slynd 1/4 of tab daily was working well for her. She had varied between quarter-half pill and overall does tolerate both. For the testosterone: Has not been on it consistently due to medical problems and issues related tocost and compounding pharmacy delays. Plan for testosterone wasmore dilute dosing so that she can use more frequently to avoid the crashing of hormone levels throughout the 24 hours. We discussed androgens may exacerbate her hair loss concerns. Rxed Testim, received 01/17. Hasn't been able to use it due to illness Previously tried/offered: -Depoprovera couldn't walk. -Compounded topical progesterone via OSH-discussed not safe for endometrium -OCPs multiple sxs of panic/heart racing rushing noises in ear (bathroom fan would sound like an airplane). -Antianxiety medications-tried multiple -Vivelle- too stimulated, even on the 25-50 mcg, q 2-3.5 days. Dose was increased to 50 which helped better with sxs, but legs would swell. Tried 4-6 wks for each. feels heart racing when the estrogen seems to be dropping. Within 2 hours of coming off the patch her HR would come down. [facility] resident care manager rn of Vivelle : feels it depletes too quickly -Combipatch- HR was high 130s sinus tach noted with PCP, so was told her to come off due to possible allergy. Saw cards and EP- told heart is not the problem, but a symptom of what is going on. Came off after 3 days, also felt drunk and dizzy with it. Took 1 mo for the drunken dizzy sensation to goaway. -estrogel-tolerates better twice daily , in past quick dose adjustments would cause HR would go up when waiting 24 hours between doses (felt that she was metabolizing the estrogen quickly). -Divigel start with quarter or less of the packet daily, and slowly move up to the full dose as tolerated-cost prohibitive -Bi est-liked in past, she felt like it was too much. The pharmacist was managing. 3 mg E2/0.5 of E3, she didn't feel comfortable with the way the pharmacist wanted to change the dosing. She felt that it was too E2 heavy. -Biest 08/15 rxed from us, 1 Click 0.25 g (which we typically use for vaginal local low-dose therapy) of the cream and pickle sorter a 1 mL syringe, start with use of 0.1 mL at a time, which she can use twice daily or 3 times daily if even needed. tried for 2 days, because had difficulty with the syringe so she tried the full dose of the 1 click instead.- also limited insurance coverage. The heart started racing and fluctuation symptoms. Was not clear which when she tolerated the best, spoke with our compounding pharmacy. 5 mg dose, which would be dispensed in 1 mL syringes, so that she can use 0.1-0.2 mL, 2-3 times a day as tolerated. -Estratest and NET 0.[address] Trevino- kicked up GERD which she felt pushed into an asthma attack -Prometrium 100 made her feel drunk and dizzy. Tried vaginally too, but bladder spasm. Progesteronecompounded transdermally after 20 mg starts getting similar symptoms (by OSH doctor) -Estradiol p.o. 3 days into crying for no reason (although dr Trevino's notes says this was with FemHRT) -No progestin that she has been able to tolerate until the Slynd,however she does sleep better withthe Prometrium. -Mirena: daughter got hives, and it took a week for someone to remove it, nervous about anything that is not patient controlled. -Testosterone compounded 04/16, goal of 1 mg twice daily-limited by being able to get it quickly atpharmacy. INTERIM UPDATE 07/06/2024: Has been sick back to back since last visit, respiratory, covid, and also had endoscopy, &fattyliver. Told by her GI team to start the estrogen to help her liver. She had labs done 06/20 : e2 level of 15, testosterone mid range-lab accidental maribeth it, wasn't hasn't been on any of her hormones throughout this time since last visit. Plans on starting the E2 now, also told that voquezna triple pack for her esophagitis may decrease her estrogen. She will get a go ahead from her medical team this week and plans to start: Slynd 1/4 (at least one week, she may increase to 1/2 pill) Estrogel 1 pump bid Hold off testosterone PAST HISTORY (reviewed and updated): Subjective OB History Gravida7 Para6 Term6 Preterm0 AB1 Living6 SAB0 IAB0 Ectopic1 Multiple0 Live Births6 Comment: menarche 12 FFTP 15 menopause age 43 ACTIVE PROBLEM LIST Postablative Hypothyroidism hx of low vitamin D Panic Disorder With Agoraphobia Chronic Fatigue Syndrome With Fibromyalgia Blood Pressure Elevated Without History of Htn Impaired Glucose Tolerance Svt (Supraventricular Tachycardia) ([facility]) Ptsd (Post-Traumatic Stress Disorder) Attention Deficit Hyperactivity Disorder (Adhd), Combined Type Recurrent Major Depressive Disorder, in Partial Remission ([facility]) menopause age 43 Tobacco Use Gerd Without Esophagitis Simple Chronic Bronchitis ([facility]) Irritable Bowel Syndrome With Diarrhea Burning Sensation of Mouth Burning Sensation of Skin Sleep Difficulties Mitral Valve Prolapse Estrogen Deficiency Adrenal Adenoma, Left Andressa (Obstructive Sleep Apnea) Nocturnal Oxygen Desaturation 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) Cyp2c9 Intermediate Metabolizer (Hcc) [id number] Rapid Metabolizer (Hcc) Ugt1a1 Intermediate Metabolizer ([facility]) Heterozygous Factor V Leiden Mutation ([facility]) Hormone Deficiency Menopausal and Perimenopausal Disorder Mood Change Diabetes Mellitus Type 2, Controlled, Without Complications ([facility]) Myalgia Autonomic Dysfunction Muscle Weakness Obesity, Class II, Bmi 35-39.9 Arnold-Chiari Deformity ([facility]) Lung Nodule Palpitations Gastroesophageal Reflux Disease With Esophagitis Without Hemorrhage Portal Hypertensive Gastropathy (Hcc) ([facility]) PAST MEDICAL HISTORY Diagnosis Date Abdominal pain, chronic, right upper quadrant Asthma As a baby, then I outgrew it. Cystocele, midline 05/13/2009 Delayed emergence from anesthesia 09/27/2014 Depression Excessive or frequent menstruation Heavy periods Fatty liver GERD (gastroesophageal reflux disease) History of Graves' [...] 2 stroke Colon Cancer Father age 64 ND Diabetes Father Type 2 Hypertension Father Coronary Artery Disease Father Hx of ND Thyroid Sister hx of parathyroid disease/ hx of fibroids other (healthy) Brother other (healthy) Brother Allergies Daughter other (healthy) Daughter other (healthy) Son other (healthy) Son other (healthy) Son other (healthy) Son Colon Cancer Paternal Aunt x5 Colon Cancer Paternal Uncle x8 Social History Tobacco Use Smoking status: Every Day Current packs/day: 1.00 Average packs/day: 1 pack/day for 20.0 years (20.0 ttl pk-yrs) Types: Cigarettes Smokeless tobacco: Never Vaping Use Vaping status: Never Used Substance Use Topics Alcohol use: No Drug use: No Social History Social History Narrative She lives in [place] [id number] 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[place], 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 TESTING: Objective Last 10 Encounter BP Readings: Date: BP: 06/06/2024 154/64 11/29/2023 146/88 11/16/2023 130/82 10/14/2023 128/86 09/24/2023 144/99 09/13/2023 140/96 07/28/2023 151/91 07/07/2023 132/86 06/18/2023 132/82 05/31/2023 124/92 Lab Results Component Value Date TSH 1.070 06/29/2024 TSH 1.690 12/03/2023 TSH 0.928 10/15/2023 TSH 2.080 06/15/2023 TSH 0.771 05/21/2023 TSH 1.060 10/02/2022 B12 467 07/05/2024 B12 509 10/15/2023 B12 506 07/16/2020 B12 483 09/06/2019 B12 576 03/22/2019 B12 683 12/01/2017 VITD25 21.9 (L) 06/29/2024 VITD25 24.8 (L) 10/15/2023 VITD25 43.6 07/09/2023 VITD25 11.3 (L) 05/21/2023 VITD25 35.8 08/01/2021 VITD25 16.2 (L) 05/26/2021 HB 16.2 (H) 06/29/2024 HB 16.2 (H) 06/13/2024 HB 16.2 (H) 06/06/2024 HB 15.1 03/10/2024 HB 15.2 05/21/2023 HB 15.2 10/02/2022 SARAY 184.0 06/29/2024 SARAY 222.0 (H) 10/15/2023 SARAY 142.0 09/06/2019 SARAY 168.8 06/23/2017 SARAY 172.8 01/27/2017 WBC 8.90 06/29/2024 WBC 12.22 (H) 06/13/2024 WBC 12.46 (H) 06/06/2024 WBC 10.75 03/10/2024 WBC 10.99 05/21/2023 WBC 10.96 10/02/2022 PLT 278 06/29/2024 PLT 266 06/13/2024 PLT 287 06/06/2024 PLT 318 03/10/2024 PLT 268 05/21/2023 PLT 288 10/02/2022 CREAT 0.71 06/29/2024 CREAT 0.82 06/13/2024 CREAT 0.77 06/06/2024 CREAT 0.73 03/07/2024 CREAT 0.78 10/26/2023 CREAT 0.80 10/15/2023 CA 9.6 06/29/2024 CA 9.5 06/13/2024 CA 9.7 06/06/2024 CA 9.5 03/07/2024 CA 9.3 10/26/2023 CA 9.4 07/09/2023 K 3.6 (L) 06/29/2024 K 3.7 06/13/2024 K 3.9 06/06/2024 K 3.9 03/07/2024 K 4.1 10/26/2023 K 4.1 07/09/2023 MG 2.1 06/29/2024 MG 2.0 07/09/2023 MG 1.8 04/24/2021 MG 1.9 05/20/2020 MG 2.1 12/19/2018 MG 2.0 03/09/2018 NA 139 06/29/2024 NA 137 06/13/2024 NA 139 06/06/2024 NA 138 03/07/2024 NA 139 10/26/2023 NA 137 07/09/2023 AST 38 (H) 06/29/2024 AST 40 (H) 06/13/2024 AST 37 (H) 06/06/2024 AST 31 07/09/2023 AST 45 (H) 06/15/2023 AST 41 (H) 05/21/2023 ALT 72 (H) 06/29/2024 ALT 63 (H) 06/13/2024 ALT 59 (H) 06/06/2024 ALT 58 (H) 07/09/2023 ALT 75 (H) 06/15/2023 ALT 63 (H) 05/21/2023 HBA1C 6.1 (H) 06/13/2024 HBA1C 6.4 (H) 03/07/2024 HBA1C 6.3 (H) 10/15/2023 HBA1C 6.3 (H) 05/21/2023 HBA1C 6.1 (H) 05/25/2022 HBA1C 5.9 (H) 12/31/2021 GLUC 102 (H) 06/29/2024 GLUC 100 (H) 06/13/2024 GLUC 103 (H) 06/06/2024 GLUC 91 03/07/2024 GLUC 169 (H) 10/26/2023 GLUC 145 (H) 07/09/2023 LDL 87 07/05/2024 LDL 91 10/15/2023 LDL 68 12/04/2019 LDL 81 12/10/2017 LDL 77 11/09/2016 LDL 69 10/21/2011 TG 74 07/05/2024 TG 96 10/15/2023 TG 102 12/04/2019 TG 67 12/10/2017 TG 49 11/09/2016 HDL 40 07/05/2024 HDL 40 10/15/2023 HDL 37 (L) 12/04/2019 HDL 34 (L) 12/10/2017 Lab Results Component Value Date COR 34.0 06/15/2019 COR 8.2 05/02/2018 COR 29.6 09/08/2017 COR 23.8 11/21/2016 COR 19.7 10/14/2015 COR 12.7 07/11/2014 FSH 36.3 07/16/2020 FSH 37.8 11/21/2016 FSH 47.7 12/23/2012 FSH 48.7 05/12/2012 FSH 48.3 10/06/2011 FSH 8.0 08/27/2000 LH 23.5 05/12/2012 PROG 0.2 12/04/2019 PROG 0.4 09/06/2019 PROG 0.3 08/16/2019 PROG 0.6 06/15/2019 PROG 0.2 01/25/2017 PROG 0.3 08/03/2014 QQTZH26E <25 05/20/2020 JLRPM85O <25 12/04/2019 EUZIM21N <25 09/06/2019 UHUFW57S <25 08/16/2019 QFTSW11M 46 07/21/2019 LRRXF72R <25 06/15/2019 EST 15.2 06/06/2024 SHBG 66 06/06/2024 SHBG 86 02/02/2023 SHBG 10/06/2011 57 Unit: nmol/L (NOTE) -- REFERENCE VALUE -- 18-144 (non-) Test performed by: [facility], [place], [place], unless otherwise specified above. TESTT 20 06/06/2024 TESTT 23 02/02/2023 TESTFREE 2.2 06/06/2024 TESTFREE 2.1 02/02/2023 TESTFREE 0.34 05/20/2020 TESTFREE 0.22 12/04/2019 TESTFREE 0.25 09/06/2019 TESTFREE 0.22 08/16/2019 DHEAS 22.7 (L) 06/15/2019 DHEAS 25.7 (L) 12/12/2018 DHEAS 30.8 (L) 01/03/2018 DHEAS 37.4 12/10/2017 DHEAS 32.1 (L) 09/08/2017 DHEAS 21.8 (L) 11/21/2016 PROL 11.0 11/21/2016 PROL 4.8 01/14/2012 PROL 4.1 10/05/2006 Testosterone Date Value Ref Range Status 05/20/2020 31 8 - 60 ng/dL Final Comment: (NOTE) ADDITIONAL INFORMATION Testing performed by Liquid Chromatography-Tandem Mass Spectrometry (LC-MS/MS). This test was developed and its performance characteristics determined by [facility] in a manner consistent with CLIA requirements. This test has not been cleared or approved by the U.S. Food and Drug Administration. 12/04/2019 20 8 - 60 ng/dL Final Comment: (NOTE) ADDITIONAL INFORMATION Testing performed by Liquid Chromatography-Tandem Mass Spectrometry (LC-MS/MS). This test was developed and its performance characteristics determined by [facility] in a manner consistent with CLIA requirements. This test has not been cleared or approved by the U.S. Food and Drug Administration. 09/06/2019 23 8 - 60 ng/dL Final Comment: (NOTE) ADDITIONAL INFORMATION Testing performed by Liquid Chromatography-Tandem Mass Spectrometry (LC-MS/MS). This test was developed and its performance characteristics determined by [facility] in a manner consistent with CLIA requirements. This test has not been cleared or approved by the U.S. Food and Drug Administration. 08/16/2019 22 8 - 60 ng/dL Final Comment: (NOTE) ADDITIONAL INFORMATION Testing performed by Liquid Chromatography-Tandem Mass Spectrometry (LC-MS/MS). This test was developed and its performance characteristics determined by [facility] in a manner consistent with CLIA requirements. This test has not been cleared or approved by the U.S. Food and Drug Administration. 06/15/2019 30 8 - 60 ng/dL Final Comment: (NOTE) ADDITIONAL INFORMATION Testing performed by Liquid Chromatography-Tandem Mass Spectrometry (LC-MS/MS). This test was developed and its performance characteristics determined by [facility] in a manner consistent with CLIA requirements. This test has not been cleared or approved by the U.S. Food and Drug Administration. 12/12/2018 See Comment <40 ng/dL Final Comment: The total testosterone result is 20 ng/dL, the reference range of [facility] is 8 to 60 ng/dL. Disregard [facility] reference range. Interpret the result using the reference range provided by the performing laboratory. Results should not be compared to previously reported results using [facility]'s assay due to differences in methodology. Test performed by: [facility], [place], [place] Testing performed by Liquid Chromatography Tandem Mass Spectrometry. 07/27/2018 30 <40 ng/dL Final 05/17/2018 19 <40 ng/dL Final 01/03/2018 29 <40 ng/dL Final 09/08/2017 39 <40 ng/dL Final Last Bone Density No resulted procedures found. Last Screening Mammogram [facility] SCREENING Exam End: 07/01/2022 2:50 PM (Final result) Narrative: * * *Final Report* * * DATE OF EXAM: Jul 01 2022 2:50PM KRISTINA [id number] - [facility] SCREENING / PROCEDURE REASON: Encounter for screening mammogram for breast cancer * * * * Physician Interpretation * * * * RESULT: #[id number] - BELKIS SCREENING BILATERAL DIGITAL SCREENING MAMMOGRAM WITH CAD: 07/01/2022 HISTORY: Encounter For Screening Mammogram For Breast Cancer. RESULT: TECHNIQUE: The study was acquired using full field digital technology and interpreted from soft copy. Current study was also evaluated with a Computer Aided Detection (CAD). Comparison is made to exams dated: 06/16/2019 mammogram and 12/24/2015 mammogram - [facility]. There are scattered fibroglandular elements in both breasts. No significant masses, calcifications, or other findings are seen in either breast. There has been no significant interval change. Impression: IMPRESSION: NEGATIVE There is no mammographic evidence of malignancy. A 1 year screening mammogram is recommended. The exam was reviewed by a staff physician. Ruslan Perez M.D. rs,[facility]/chaurad:07/01/2022 15:25:18 Svp Of Digital(s): RT Hudson(R)(M), [facility] letter sent: Normal over 40 Mammogram BI-RADS: [...] Health, Family Medicine, and Medical/Surgical Oncology, the [facility] has carefully reviewed the data and [...] their providers when to stop screening mammograms. Lap Winding Machine Operator: Mahamed Transcribe Date/Time: Jul 01 2022 1:57P Dictated by: HAZEL PEREZ MD This examination was interpreted and the [...] Physician Interpretation * * * * RESULT: #[id number] - BELKIS DIG DIAG CAD MARIA A BILATERAL DIGITAL DIAGNOSTIC MAMMOGRAM WITH CAD: 12/24/2015 HISTORY: Mastodynia Bilateral/Palpable lump left axilla /Priors available for comparison. RESULT: TECHNIQUE: The study was acquired using full field digital technology and interpreted from soft copy. Current study was also evaluated with a Computer Aided Detection (CAD). Comparison is made to exam dated: 06/07/2013 mammogram - [facility]. There are scattered fibroglandular elements in both breasts. There are benign lymph nodes in both breasts. No significant masses, calcifications, or other findings are seen in either breast. BENIGN There is no mammographic evidence of malignancy. #[id number] - US BREAST INCL AXILLA LTD ULTRASOUND OF LEFT BREAST: 12/24/2015 RESULT: Comparison is made to exam dated: 06/07/2013 mammogram - [facility]. Ultrasound of the left breast was performed. [...] identified. No interval change. Sanjay camacho/mahamed:12/24/2015 10:46:16 Svp Of Digital: Aline CISNEROS)(Anushka), [facility] letter sent: Normal clinical eval OVERALL STUDY BIRADS: 2 Benign Lap Winding Machine Operator: Mahamed Transcribe Date/Time: Dec 24 2015 9:34A [...] Physician Interpretation * * * * RESULT: #[id number] - BELKIS DIG DIAG CAD MARIA A BILATERAL DIGITAL DIAGNOSTIC MAMMOGRAM WITH CAD: 12/24/2015 HISTORY: Mastodynia Bilateral/Palpable lump left axilla /Priors available for comparison. RESULT: TECHNIQUE: The study was acquired using full field digital technology and interpreted from soft copy. Current study was also evaluated with a Computer Aided Detection (CAD). Comparison is made to exam dated: 06/07/2013 mammogram - [facility]. There are scattered fibroglandular elements in both breasts. There are benign lymph nodes in both breasts. No significant masses, calcifications, or other findings are seen in either breast. BENIGN There is no mammographic evidence of malignancy. #[id number] - US BREAST INCL AXILLA LTD ULTRASOUND OF LEFT BREAST: 12/24/2015 RESULT: Comparison is made to exam dated: 06/07/2013 mammogram - [facility]. Ultrasound of the left breast was performed. [...] identified. No interval change. Sanjay camacho/mahamed:12/24/2015 10:46:16 Svp Of Digital: Aline TAYLOR(Lisa)(Anushka), [facility] letter sent: Normal clinical eval OVERALL STUDY BIRADS: 2 Benign Lap Winding Machine Operator: Mahamed Transcribe Date/Time: Dec 24 2015 9:34A Dictated by : SANJAY BROWN DO This examination was interpreted and the report reviewed and electronically signed by: SANJAY BROWN DO on Dec 24 2015 10:46AM EST PLAN: The following diagnoses were relevant to this visit: (N95.9) Menopausal and perimenopausal disorder (primary encounter diagnosis) (E34.9) Hormonal disorder (K76.0) Fatty liver (I47.10) SVT (supraventricular tachycardia) (HCC) She will plan to start: Has an appointment 11/17. See me sooner if needed. Slynd 1/4 (at least one week, she may increase to 1/2 pill) Estrogel 1 pump bid Hold off testosterone Also encouraged her to set up every [id number] throughout this year. No orders found for this visit on 07/06/24. Paul Duron MD Call if any discussed symptoms not better or worse. Note dictated using voice recognition software. documented in this encounterSt[facility] [facility] History of Present illness Narrative* Freddy Nava MD - 07/06/2024 8:00 AM EDT Patient presents with: Recheck: Patient my chart visit made for recheck. HPI:This visit is a virtual encounter. It required patient-provider interaction for the medical decision making as documented below. Patient has elected to have a visit through distance medicine I have communicated my name and active licensure. The patient's identity and physical location wereverified at the time of this visit. Either the patient or their legal high school admissions representative has been informed of the risks and benefits of -- and alternatives to -- treatment through a remote evaluation andconsents to proceed with the evaluation remotely. Alpha 1 antitrypsin is still pending. Just had fibroscan at [facility] which showed moderate fibrosis and fatty liver. Had a benign appearing renal cyst. Those have been noted on previous scans. Was in the ER at [facility] on 07/04 for evaluation of palpitations. Work up negative and discharged home. No arrhythmia per report on monitor. Every time she takes the medications for her h pylori, she as issues with it. She is having palpations and skin burning a few hours Wants to try aciphex along with her amoxil and clarithromycin. Seeing gi in the month. She asks me to recheck her iron. She wants her vitamins an anti inflammatory levels checked. No black or bloody stools No new chest pains or shortness of breath. We want to double check her antimitochondrial antibodies for her liver work up Will send everything to gi once done. She is working on her weight. Has lost 10 lbs Note was copied and pasted, without alteration from last ov just a week ago: Adding voquenza from gi for h pylori. The concern is it is a lelia of potassium. Will send a copyof the potassium to them. Reviewed current work up. Just had her nocturnal pulse ox. Pulmonary will be adjusting. Reviewed lab results thus far. Elastography is being done at [facility] next week Sees Dr Mccallum in July for her liver. Has appts with endo and cardiology coming up. Latest Ref Rng 06/29/2024 07/05/2024 WBC 3.70 - 11.00 k/uL 8.90 RBC 3.90 - 5.20 m/uL 5.11 Hemoglobin 11.5 - 15.5 g/dL 16.2 (H) Hematocrit 36.0 - 46.0 % 48.6 (H) MCV 80.0 - 100.0 fL 95.1 MCH 26.0 - 34.0 pg 31.7 MCHC 30.5 - 36.0 g/dL 33.3 RDW-CV 11.5 - 15.0 % 12.7 Platelet Count 150 - 400 k/uL 278 MPV 9.0 - 12.7 fL 10.1 Neut% % 54.6 Abs Neut (ANC) 1.45 - 7.50 k/uL 4.86 Lymph% % 33.4 Abs Lymph 1.00 - 4.00 k/uL 2.97 [place]% % 9.1 Abs [place] <0.87 k/uL 0.81 Eosin% % 2.0 Abs Eosin <0.46 k/uL 0.18 Baso% % 0.6 Abs Baso <0.11 k/uL 0.05 Immature Gran % % 0.3 IMMATURE GRANS (ABS) <0.10 k/uL 0.03 NRBC /100 WBC 0.0 Absolute nRBC <0.01 k/uL <0.01 DTYPE Auto Protein, Total 6.3 - 8.0 g/dL 7.6 Albumin 3.9 - 4.9 g/dL 4.5 Calcium 8.5 - 10.2 mg/dL 9.6 Bilirubin, Total 0.2 - 1.3 mg/dL 0.3 Alkaline Phosphatase 34 - 123 U/L 69 AST 13 - 35 U/L 38 (H) ALT 7 - 38 U/L 72 (H) Glucose 74 - 99 mg/dL 102 (H) BUN 7 - 21 mg/dL 12 Creatinine 0.58 - 0.96 mg/dL 0.71 Sodium 136 - 144 mmol/L 139 Potassium 3.7 - 5.1 mmol/L 3.6 (L) Chloride 98 - 107 mmol/L 103 CO2 22 - 30 mmol/L 26 Anion Gap 8 - 15 mmol/L 10 eGFR >=60 mL/min/1.73m 99 Cholesterol, Total <200 mg/dL 142 Triglyceride <150 mg/dL 74 HDL Cholesterol >39 mg/dL 40 Non HDL Cholesterol <130 mg/dL 102 Fasting Time hrs 12 VLDL Cholesterol <30 mg/dL 15 TC:HDL Ratio <5.10 3.55 LDL Cholesterol <100 mg/dL 87 LDL:HDL Ratio <2.54 2.18 Iron 41 - 186 ug/dL 82 TIBC 232 - 386 ug/dL 416 (H) Transferrin Saturation 15.0 - 57.0 % 19.7 Mitochondrial Ab Screen Negative Equivocal ! Mitochondrial M2 IgG Quantitative <=20.0 Units 22.9 (H) PT Sec <13.1 sec 10.9 PT INR 0.9 - 1.3 1.0 Pathologist Interpretation, CBCDIF The Pathologist Interpretation on this sample was cancelled because the hematology analyzer did not flag any parameters as requiring manual review. If there is a specific clinical concern for which you would like a pathologist to review the blood smear, please call Lab Client Services within 28 days. Pathologist ([place]) No review performed. GGT 6 - 46 U/L 29 Ammonia 11 - 51 umol/L 25 Magnesium 1.7 - 2.3 mg/dL 2.1 TSH 0.270 - 4.200 mIU/L 1.070 Vitamin D 25 Hydroxy 31.0 - 80.0 ng/mL 21.9 (L) LEONIDAS Scr Qual Negative Negative Ferritin 14.7 - 205.1 ng/mL 184.0 AFP, Serum (Tumor Marker) <9.00 ng/mL 1.90 HCV RNA Not detected Not detected Hep B Surface Ag Negative Negative Hep A Ab, IgM Negative Negative Hep B Core Ab, IgM Negative Negative Bilirubin, Direct <0.3 mg/dL 0.1 Vitamin B12 232 - 1,245 pg/mL 467 Folate >4.7 ng/mL 4.8 Legend: (H) High (L) Low ! Abnormal ALLERGIES: ALLERGIES Allergen Reactions Codeine GI Upset, [...] 2 stroke Colon Cancer Father age 64 [place] Diabetes Father Type 2 Hypertension Father Coronary Artery Disease Father Hx of [place] Thyroid Sister hx of parathyroid disease/ hx of fibroids other (healthy) Brother other (healthy) Brother Allergies Daughter other (healthy) Daughter other (healthy) Son other (healthy) Son other (healthy) Son other (healthy) Son Colon Cancer Paternal Aunt x5 Colon Cancer Paternal Uncle x8 Social History Tobacco Use Smoking status: Every Day Current packs/day: 1.00 Average packs/day: 1 pack/day for 20.0 years (20.0 ttl pk-yrs) Types: Cigarettes Smokeless tobacco: Never Vaping Use Vaping status: Never Used Substance Use Topics Alcohol use: No Drug use: No Reviewed current medications, allergies, past medical history, surgical history, family history andsocial history today. REVIEW OF SYSTEMS All other reviewed and negative other than HPI. VITALS: Could not assess Last 4 Encounter Wt Readings: Date: Wt: 06/06/2024 98.4 kg (217 lb) 11/29/2023 95.7 kg (211 lb) 11/16/2023 95.3 kg (210 lb) 10/14/2023 96.2 kg (212 lb) PHYSICAL EXAMINATION: Patient is alert and oriented during visit. Answers appropriately. Breathing comfortably.. chest rise normal. No audible wheeze. No pallor. ASSESSMENT/PLAN: 1. Burning sensation of skin - ICD9: 782.0, ICD10: R20.8 (primary diagnosis) - will change to triple therapy with aciphex instead. Call if any worsening. - FOLATE, SERUM - METHYLMALONIC ACID - VITAMIN B6/PYRIDOXIN - VITAMIN B1 (THIAMINE), WHOLE BLOOD - VITAMIN A/RETINOL 2. SVT (supraventricular tachycardia) (HCC) - ICD9: 427.89, ICD10: I47.10 - see cardiology 3. Simple chronic bronchitis (HCC) - ICD9: 491.0, ICD10: J41.0 Follow with pulmonary. 4. ANDRESSA (obstructive sleep apnea) - ICD9: 327.23, ICD10: G47.33 - continue to work with pulmonary- is working aggressively on weight loss. 5. Portal hypertensive gastropathy (HCC) (HCC) - ICD9: 572.3, 537.89, ICD10: K76.6, K31.89 - work up as above. Sees gi in next month. Forward evaluation to them once complete. Await pending labs. Recheck labs one more time in two weeks. - MITOCHONDRIAL M2 IGG SERUM - IRON AND TIBC - FERRITIN 6. 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 7. Hormone deficiency - ICD9: [id number], ICD10: E34.9 - per coding technician. 8. Obesity, Class II, BMI 35-39.9 - ICD9: 278.00, ICD10: E66.812 - as above 9. GERD without esophagitis - ICD9: 530.81, ICD10: K21.9 - change meds. - RABEPRAZOLE 20 MG TABLET,DELAYED RELEASE 10. H. pylori infection - ICD9: 041.86, ICD10: A04.8 - continue antibiotics but change to aciphex- - RABEPRAZOLE 20 MG TABLET,DELAYED RELEASE - COMPREHENSIVE METABOLIC PANEL 11. Arthralgia, unspecified joint - ICD9: 719.40, ICD10: M25.50 - has seen rheum multiple times in past. Can reconsider going back if persists. - SEDIMENTATION RATE, WESTERGREN - C-REACTIVE PROTEIN - RHEUMATOID FACTOR - FOLATE, SERUM Freddy Nava MD Keep follow up appt or prn I spent 45 minutes in the visit, with more than 50% of the total [id number] time of the visit in counseling / coordination of care. documented in this encounterSt. [facility]03-13-[address] [facility] Telephone encounter Note* Telephone Encounter - Freddy Nava MD - 07/05/2024 1:11 PM EDT See mychart [facility]03-12-2025 Miscellaneous Notes* Telephone Encounter - Freddy Nava MD - 07/05/2024 1:11 PM EDT See mychart * Telephone Encounter - Sudha Pink LPN - 07/05/2024 12:39 PM EDT See results from [facility]: Scan on 07/05/2024 9:41 AM by ProviderBrianna PA-C: Miscellaneous Imaging documented in this encounterSt. [facility]03-12-2025 Telephone encounter Note * Telephone Encounter - Sudha Pink LPN - 07/05/2024 12:39 PM EDT See results from [facility]: Scan on 07/05/2024 9:41 AM by ProviderBrianna PAGenoC: Miscellaneous Imaging [facility]03-12-2025 Radiology Diagnostic study note [facility] Imaging Services [address] [place] [address] ABD Limited w/ Elastography MR#: [id number] Acct: [id number] Name: MARIBELL GARZON Rep #: [id number] : 1965 F 58 From: Benjie Bailon MD PCP: Dr. Freddy Nava MD Status: REG C LI Study:ABD Limited w/ Elastography Date of Exa m: 07/05/24 Exam# [id number] Ordering Dr: Adolph Nava MD PROCEDURE: ABD LIMITED W/ ELASTOGRAPHY REASON FOR EXAM: FATTY LIVER COMPARISON: None. TECHNIQUE: Right upper quadrant abdominal ultrasound. Marky ElastQ Imaging shear wave elastography for non-invasive assessment of liver tissue stiffness. [employer] EPIQ Elite. FINDINGS: LIVER: Size: Unremarkable Length: 15.9 cm Echotexture: Diffusely echogenic suggesting fatty infiltration Contour: Normal Lesions: None identified Elastography: EQI Med: 7.8 kPa EQI Med Jameson: 1.6 m/s IQR/Med: 13.5 %* GALLBLADDER: Surgically absent. COMMON BILE DUCT: Normal it measures 3.9 mm. PANCREAS: Normal Visualized portions of the right kidney are unremarkable. 1 cm x 0.9 cm x 1.2 cm right renal cyst. No right upper quadrant ascites. US/ABD Limited w/ Elastography IMPRESSION: MODERATE HEPATIC FIBROSIS Right renal cyst. Fatty infiltration of the liver. Reference Values: SRU <1.37 m/s (5.7kPa): No to mild fibrosis 1.37 m/s - 2.2 m/s: Moderate to severe fibrosis >2.2 m/s (15kPa): Significant fibrosis / cirrhosis METAVIR Score F2 or higher: 1.34 m/s (5.7kPa) F3 or higher: 1.55 m/s (7.3kPa) F4: 1.80 m/s (10kPa) * If the IQR/Med is >30%, the variance in the measurements is a large and the accuracy of the measurement may be in question. Reading Location: [facility] CC: Dr. Freddy Nava MD ~ Lap Winding Machine Operator: Signed [facility]03-07-[address] [facility]03-[facility]-20[facility] History of Present illness Narrative* Freddy Nava MD - 06/30/2024 10:41 AM EST Patient presents with: Acute Visit: Patient requested sooner follow up HPI:This visit is a virtual encounter. It required patient-provider interaction for the medical decision making as documented below. Patient has elected to have a visit through distance medicine I have communicated my name and active licensure. The patient's identity and physical location wereverified at the time of this visit. Either the patient or their legal high school admissions representative has been informed of the risks and benefits of -- and alternatives to -- treatment through a remote evaluation andconsents to proceed with the evaluation remotely. Adding voquenza from gi for h pylori. The concern is it is a lelia of potassium. Will send a copyof the potassium to them. Reviewed current work up. Just had her nocturnal pulse ox. Pulmonary will be adjusting. Reviewed lab results thus far. Elastography is being done at [facility] next week Sees Dr Mccallum in July for her liver. Has appts with endo and cardiology coming up. MEDICATIONS: Latest Ref Rng 06/29/2024 WBC 3.70 - 11.00 k/uL 8.90 RBC 3.90 - 5.20 m/uL 5.11 Hemoglobin 11.5 - 15.5 g/dL 16.2 (H) Hematocrit 36.0 - 46.0 % 48.6 (H) MCV 80.0 - 100.0 fL 95.1 MCH 26.0 - 34.0 pg 31.7 MCHC 30.5 - 36.0 g/dL 33.3 RDW-CV 11.5 - 15.0 % 12.7 Platelet Count 150 - 400 k/uL 278 MPV 9.0 - 12.7 fL 10.1 Neut% % 54.6 Abs Neut (ANC) 1.45 - 7.50 k/uL 4.86 Lymph% % 33.4 Abs Lymph 1.00 - 4.00 k/uL 2.97 [place]% % 9.1 Abs [place] <0.87 k/uL 0.81 Eosin% % 2.0 Abs Eosin <0.46 k/uL 0.18 Baso% % 0.6 Abs Baso <0.11 k/uL 0.05 Immature Gran % % 0.3 IMMATURE GRANS (ABS) <0.10 k/uL 0.03 NRBC /100 WBC 0.0 Absolute nRBC <0.01 k/uL <0.01 DTYPE Auto Protein, Total 6.3 - 8.0 g/dL 7.6 Albumin 3.9 - 4.9 g/dL 4.5 Calcium 8.5 - 10.2 mg/dL 9.6 Bilirubin, Total 0.2 - 1.3 mg/dL 0.3 Alkaline Phosphatase 34 - 123 U/L 69 AST 13 - 35 U/L 38 (H) ALT 7 - 38 U/L 72 (H) Glucose 74 - 99 mg/dL 102 (H) BUN 7 - 21 mg/dL 12 Creatinine 0.58 - 0.96 mg/dL 0.71 Sodium 136 - 144 mmol/L 139 Potassium 3.7 - 5.1 mmol/L 3.6 (L) Chloride 98 - 107 mmol/L 103 CO2 22 - 30 mmol/L 26 Anion Gap 8 - 15 mmol/L 10 eGFR >=60 mL/min/1.73m 99 Iron 41 - 186 ug/dL 82 TIBC 232 - 386 ug/dL 416 (H) Transferrin Saturation 15.0 - 57.0 % 19.7 PT Sec <13.1 sec 10.9 PT INR 0.9 - 1.3 1.0 Pathologist Interpretation, CBCDIF The Pathologist Interpretation on this sample was cancelled because the hematology analyzer did not flag any parameters as requiring manual review. If there is a specific clinical concern for which you would like a pathologist to review the blood smear, please call Lab Client Services within 28 days. Pathologist ([place]) No review performed. GGT 6 - 46 U/L 29 Ammonia 11 - 51 umol/L 25 Magnesium 1.7 - 2.3 mg/dL 2.1 TSH 0.270 - 4.200 mIU/L 1.070 Vitamin D 25 Hydroxy 31.0 - 80.0 ng/mL 21.9 (L) LEONIDAS Scr Qual Negative Negative Ferritin 14.7 - 205.1 ng/mL 184.0 Hep B Surface Ag Negative Negative Hep A Ab, IgM Negative Negative Hep B Core Ab, IgM Negative Negative Bilirubin, Direct <0.3 mg/dL 0.1 Legend: (H) High (L) Low Echo: CONCLUSIONS: - Exam indication: Shortness of Breath - The left ventricle is normal in size. There is mild concentric left ventricular hypertrophy. Left ventricular systolic function is normal. EF = 65 5% (2D biplane) Grade I left ventricular diastolic dysfunction. - The right ventricle is normal in size. Right ventricular systolic function is normal. - There are no significant valvular abnormalities. - Exam was compared with the prior [facility] echocardiographic exam performed on 02/07/2016, no significant change. ALLERGIES: ALLERGIES Allergen Reactions Codeine GI Upset, [...] 2 stroke Colon Cancer Father age 64 [place] Diabetes Father Type 2 Hypertension Father Coronary Artery Disease Father Hx of [place] Thyroid Sister hx of parathyroid disease/ hx of fibroids other (healthy) Brother other (healthy) Brother Allergies Daughter other (healthy) Daughter other (healthy) Son other (healthy) Son other (healthy) Son other (healthy) Son Colon Cancer Paternal Aunt x5 Colon Cancer Paternal Uncle x8 Social History Tobacco Use Smoking status: Every Day Current packs/day: 1.00 Average packs/day: 1 pack/day for 20.0 years (20.0 ttl pk-yrs) Types: Cigarettes Smokeless tobacco: Never Vaping Use Vaping status: Never Used Substance Use Topics Alcohol use: No Drug use: No Reviewed current medications, allergies, past medical history, surgical history, family history andsocial history today. REVIEW OF SYSTEMS All other reviewed and negative other than HPI. HEALTH MAINTENANCE: Reviewed health maintenance issues today and recommended the following in detail. Dilated Retinal Exam Never done Mammogram Screening due on 07/01/2024 Discussed considering colonoscopy. VITALS: Could not assess Last 4 Encounter Wt Readings: Date: Wt: 06/06/2024 98.4 kg (217 lb) 11/29/2023 95.7 kg (211 lb) 11/16/2023 95.3 kg (210 lb) 10/14/2023 96.2 kg (212 lb) PHYSICAL EXAMINATION: Patient is alert and oriented during visit. Answers appropriately. Breathing comfortably.. chest rise normal. No audible wheeze. No pallor. ASSESSMENT/PLAN: 1. SVT (supraventricular tachycardia) (HCC) - ICD9: 427.89, ICD10: I47.10 (primary diagnosis) - seeing cardiology. Discussed possible causes 2. Blood pressure elevated without history of HTN - ICD9: 796.2, ICD10: R03.0 - have been stable. - Goal of BP <130/80 3. ANDRESSA (obstructive sleep apnea) - ICD9: 327.23, ICD10: G47.33 - per sleep med 4. Portal hypertensive gastropathy (HCC) (HCC) - ICD9: 572.3, 537.89, ICD10: K76.6, K31.89 - waiting on rest of labs. 5. 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 6. Controlled type 2 diabetes mellitus without complication, unspecified whether fdc insulin use (HCC) - ICD9: 250.00, ICD10: E11.9 - did not tolerate drugs we have tried thus far. Seeing endo soon with concerns of episodic hypoglyecemia. 7. PTSD (post-traumatic stress disorder) - ICD9: 309.81, ICD10: F43.10 - stable. 8. Estrogen deficiency - ICD9: 256.39, ICD10: E28.39 - per woman's health. 9. hx of low vitamin D - ICD9: 268.9, ICD10: E55.9 -add otc vit d 10. Burning sensation of mouth - ICD9: 528.9, ICD10: R20.8 - she request rechecking lab s. - VITAMIN B12 - FOLATE, SERUM 11. Encounter for screening mammogram for malignant neoplasm of breast - ICD9: V76.12, ICD10: Z12.31 - Follow up for annual exam in one year. - [facility] SCREENING W LANDRY Nava MD documented in this encounterSt. [facility] Telephone encounter Note * Telephone Encounter - Sudha Pink LPN - 06/23/2024 9:17 AM EST Faxed order to [facility] as requested. Reaching out to clerical to help with insurance referral. Completed. [facility] Miscellaneous Notes* Telephone Encounter - Sudha Pink LPN - 06/23/2024 9:17 AM EST Faxed order to [facility] as requested. Reaching out to clerical to help with insurance referral. Completed. * Telephone Encounter - Freddy Nava MD - 06/23/2024 8:04 AM EST See if we can send over the order for the elastrography I placed yesterday to [facility] documented in this encounterSt. [facility] Hospital02-[facility]25 Telephone encounter Note * Telephone Encounter - Freddy Nava MD - 06/23/2024 8:04 AM EST See if we can send over the order for the elastrography I placed yesterday to [facility] History of Present illness Narrative* Freddy Nava MD - 06/22/2024 9:00 AM EST Patient presents with: Recheck: Patient requested recheck HPI:This visit is a virtual encounter. It required patient-provider interaction for the medical decision making as documented below. Patient has elected to have a visit through distance medicine I have communicated my name and active licensure. The patient's identity and physical location wereverified at the time of this visit. Either the patient or their legal high school admissions representative has been informed of the risks and benefits of -- and alternatives to -- treatment through a remote evaluation andconsents to proceed with the evaluation remotely. Since then, I received an ER note from 06/13 I was not aware of where she presented due to they elevated carboxyhemoglobin level. It was before our last visit and was apparently told same things per ER doc. I also received an egd from Dr. Martinez. I was not aware she was going to have another egd but it did show.: Impression: - LA Grade B reflux esophagitis with no bleeding. Biopsied. - Ectopic gastric mucosa in the upper third of the esophagus. Biopsied. - Erosive gastropathy with no stigmata of recent bleeding. Biopsied. - Portal hypertensive gastropathy. Biopsied. - Erythematous duodenopathy. She has literally been tried on every class of meds for acid reduction and currently we are trying axid to see if it can help. Right now she has issues with that as well. Her pharmacist had suggestedit can interfere with mag and perhaps that is part of the issue with mag. She apparently said her path also shows h pylori but she has not heard back. We discussed that if that is the case she likelywill need to actually try to tolerate treatments. Has seen gi at [facility] as well and even discussed surgery. Given her lfts and the question of portal hypertensive gastropathy, I suspicion due to Godinez, would recommend continued follow up with gi nd hepatology. She does not drink etoh. She will check with DrFriend about the h pylori and I will try and get the ordered. She was also concerned earlier about hypoglycemia happening at night. She has a cgm. Her labs are suggestive more of impaired glucose tolerance and has been diagnosed by previous endo's as DMII. She has been on metformin in the past but did not tolerate. Her most recent A1c was 6.1.. We had discussed trying a glp-1 but she has many issues with medications. She has an upcoming appt I asked her to set up with endo to discuss her sugar. She is checking it with her glucometer and it verifies it does drop often into the 50's. We talked about limiting simple sugars and focusing on smaller more frequent meals and seeing endo. We have repeat labs including cbc with path and liver studies next month. Will move those up and add additional liver studies. She has seen an extensive list of specialists in the past for her long standing symptoms. She just saw pulmonology. Sleep study is scheduled. She has an appt with cardiology. She has seen them in the past and saw EPS at one point. Has had multiple fdc monitors. Has frequent palpitations but only has ever isolated minimal svt. Note was copied and pasted, without alteration from 06/15 visit. Presents to go over lab results. Her white count is declining. Her hb remains minimally high. Her carboxyhb is high and she is a smoker. She also has very difficult to treat andressa. She was to do a titration for sleep med but had not. Willlet her know she is now willing to do it. No current fever or signs of infection. Will follow counts She is not an inspire candidate based on bmi. Discussed oral appliances and glp1's Her liver is up. Has known fatty liver. Discussed weight loss. She has also had chronic reflux. We have discussed having her continue to try to take her axid. In addition, she has an appt to see endo. Her labs are indicative of impaired glucose tolerance. She does not do well with most meds and could not tolerate metformin. Again, her cgm had shown some hypoglycemic spells. Latest Ref Rng 06/06/2024 06/13/2024 WBC 3.70 - 11.00 k/uL 12.46 (H) 12.22 (H) RBC 3.90 - 5.20 m/uL 5.07 5.12 Hemoglobin 11.5 - 15.5 g/dL 16.2 (H) 16.2 (H) Hematocrit 36.0 - 46.0 % 49.3 (H) 48.1 (H) MCV 80.0 - 100.0 fL 97.2 93.9 MCH 26.0 - 34.0 pg 32.0 31.6 MCHC 30.5 - 36.0 g/dL 32.9 33.7 RDW-CV 11.5 - 15.0 % 12.9 12.8 Platelet Count 150 - 400 k/uL 287 266 MPV 9.0 - 12.7 fL 10.2 9.5 Neut% % 53.6 61.9 Abs Neut (ANC) 1.45 - 7.50 k/uL 6.69 7.58 (H) Lymph% % 34.7 27.2 Abs Lymph 1.00 - 4.00 k/uL 4.32 (H) 3.32 [place]% % 8.7 8.1 Abs [place] <0.87 k/uL 1.08 (H) 0.99 (H) Eosin% % 1.7 1.5 Abs Eosin <0.46 k/uL 0.21 0.18 Baso% % 0.6 0.6 Abs Baso <0.11 k/uL 0.07 0.07 Immature Gran % % 0.7 0.7 IMMATURE GRANS (ABS) <0.10 k/uL 0.09 0.08 NRBC /100 WBC 0.0 0.0 Absolute nRBC <0.01 k/uL <0.01 <0.01 Red Cell Morph Reviewed: unremarkable DTYPE Auto Auto Protein, Total 6.3 - 8.0 g/dL 7.7 7.5 Albumin 3.9 - 4.9 g/dL 4.3 4.3 Calcium 8.5 - 10.2 mg/dL 9.7 9.5 Bilirubin, Total 0.2 - 1.3 mg/dL 0.2 0.4 Alkaline Phosphatase 34 - 123 U/L 91 71 AST 13 - 35 U/L 37 (H) 40 (H) ALT 7 - 38 U/L 59 (H) 63 (H) Glucose 74 - 99 mg/dL 103 (H) 100 (H) BUN 7 - 21 mg/dL 9 10 Creatinine 0.58 - 0.96 mg/dL 0.77 0.82 Sodium 136 - 144 mmol/L 139 137 Potassium 3.7 - 5.1 mmol/L 3.9 3.7 Chloride 98 - 107 mmol/L 101 102 CO2 22 - 30 mmol/L 31 (H) 26 Anion Gap 8 - 15 mmol/L 7 (L) 9 eGFR >=60 mL/min/1.73m 90 83 Bilirubin, Direct <0.3 mg/dL 0.1 Hemoglobin A1C 4.3 - 5.6 % 6.1 (H) Estimated Average Glucose mg/dL 128 NT Pro BNP <125 pg/mL <36 Carboxyhemoglobin, Venous 0.0 - 2.0 % 10.1 (H) Insulin, Total 2.6 - 24.9 uU/mL 25.1 (H) C-Peptide 1.1 - 4.4 ng/mL 4.6 (H) HCV RNA Not detected Not detected Hep B Surface Ag Negative Negative Hep A Ab, IgM Negative Negative Hep B Core Ab, IgM Negative Negative MEDICATIONS: Current Outpatient Medications Medication Sig dicyclomine (BENTYL) 10 mg capsule Take 1 capsule by mouth before meals and at bedtime. Prn Blood-Glucose Meter,Continuous (FREESTYLE ALLYSON 3 READER) misc Use to check blood sugar at least four (4) times daily. Blood-Glucose Sensor (FREESTYLE ALLYSON 3 PLUS SENSOR) christian Apply new sensor every fifteen (15) days to upper arm. Nizatidine (AXID) 150 mg capsule Take 1 capsule by mouth two times a day. blood sugar diagnostic (BLOOD GLUCOSE TEST) test strip Test blood sugar(s) 2 times daily. Insulin: No drospirenone, contraceptive, (SLYND) 4 mg (28) tabet Take 1/4 pill daily. Noncontraceptive purpose.Please apply company discount, process as self-pay if insurance does not cover. sucralfate (CARAFATE) 1 gram tablet Take 1 tablet by mouth before meals and at bedtime. SYNTHROID 150 mcg tablet Take 1 tablet by mouth once daily. Except 1/2 tab Sun and Sat cholecalciferol (VITAMIN D3) 1,000 unit tab tablet Take 1 tablet by mouth once daily. Lancets lancets Test [...] 2 stroke Colon Cancer Father age 64 ND Diabetes Father Type 2 Hypertension Father Coronary Artery Disease Father Hx of ND Thyroid Sister hx of parathyroid disease/ hx of fibroids other (healthy) Brother other (healthy) Brother Allergies Daughter other (healthy) Daughter other (healthy) Son other (healthy) Son other (healthy) Son other (healthy) Son Colon Cancer Paternal Aunt x5 Colon Cancer Paternal Uncle x8 Social History Tobacco Use Smoking status: Every Day Current packs/day: 1.00 Average packs/day: 1 pack/day for 20.0 years (20.0 ttl pk-yrs) Types: Cigarettes Smokeless tobacco: Never Vaping Use Vaping status: Never Used Substance Use Topics Alcohol use: No Drug use: No Reviewed current medications, allergies, past medical history, surgical history, family history andsocial history today. REVIEW OF SYSTEMS All other reviewed and negative other than HPI. HEALTH MAINTENANCE: Reviewed health maintenance issues today and recommended the following in detail. Mammogram Screening due on 07/01/2024 VITALS: Could not assess Last 4 Encounter Wt Readings: Date: Wt: 06/06/2024 98.4 kg (217 lb) 11/29/2023 95.7 kg (211 lb) 11/16/2023 95.3 kg (210 lb) 10/14/2023 96.2 kg (212 lb) PHYSICAL EXAMINATION: Patient is alert and oriented during visit. Answers appropriately. Breathing comfortably.. chest rise normal. No audible wheeze. No pallor. ASSESSMENT/PLAN: 1. Fatigue, unspecified type - ICD9: 780.79, ICD10: R53.83 (primary diagnosis) - given that we already know she has likely MASH on us and lfts Recheck additional labs in the next week since her egd shows portal gastropathy which is new since her last one. Discussed weight loss and follow up with hepatology. - AMMONIA - MAGNESIUM - ALPHA FETOPROTEIN 2. Fatty liver - ICD9: 571.8, ICD10: K76.0 - US ABD RIGHT UPPER QUADRANT - US ELASTOGRAPHY LIVER - GGT - HEPATIC FUNCTION PNL - PATHOLOGIST INTERPRETATION WITH CBC AND DIFF - CONSULT TO HEPATOLOGY - AMMONIA - COMPREHENSIVE METABOLIC PANEL - HEPATITIS B SURFACE ANTIBODY - LEONIDAS BLOOD - MITOCHONDRIAL M2 IGG SERUM - PROTHROMBIN TIME - IRON AND TIBC - FERRITIN - ALPHA FETOPROTEIN - HEPATITIS A ANTIBODY IGM - HEPATITIS B CORE ANTIBODY IGM - HEPATITIS B SURFACE ANTIGEN - HEPATITIS C ANTIBODY IA WITH CONFIRMATION - ALPHA FETOPROTEIN - HEP ACUTE PANEL/RNA - [id number] - ALPHA FETOPROTEIN 3. Portal hypertensive gastropathy (HCC) (HCC) - ICD9: 572.3, 537.89, ICD10: K76.6, K31.89 - US ABD RIGHT UPPER QUADRANT - US ELASTOGRAPHY LIVER - GGT - HEPATIC FUNCTION PNL - CONSULT TO HEPATOLOGY - AMMONIA - COMPREHENSIVE METABOLIC PANEL - LEONIDAS BLOOD - MITOCHONDRIAL M2 IGG SERUM - PROTHROMBIN TIME - IRON AND TIBC - FERRITIN - HEP ACUTE PANEL/RNA - [id number] - ALPHA FETOPROTEIN 4. Gastroesophageal reflux disease with esophagitis without hemorrhage - ICD9: 530.81, 530.10, ICD10: K21.00 - not currently taking axid. Has been on every h2, ppi and carafate. Defer to gi tx. She will check with them regarding the h pylori 5. Estrogen deficiency - ICD9: 256.39, ICD10: E28.39 - per specialty 6. ANDRESSA (obstructive sleep apnea) - ICD9: 327.23, ICD10: G47.33 - getting repeat cpap titration. Seeing pulmonary. 7. SVT (supraventricular tachycardia) (HCC) - ICD9: 427.89, ICD10: I47.10 - seeing cardiology 8. Palpitations - ICD9: 785.1, ICD10: R00.2 - seeing cardiology 9. Lung nodule - ICD9: 793.11, ICD10: R91.1 - seeing pulmonary. 10. Impaired glucose tolerance - ICD9: 790.22, ICD10: R73.02 - cannot tolerate metformin. A1c is actually stable. Work on diet and weight loss. Given question of accompanying hypoglycemia, work on diet and se endo. 11. Controlled type 2 diabetes mellitus without complication, unspecified whether salvage determiner insulinuse (HCC) - ICD9: 250.00, ICD10: E11.9 - as above. 12. Hypoglycemia - ICD9: 251.2, ICD10: E16.2 - as above. 13. Other elevated white blood cell (WBC) count - ICD9: 288.69, ICD10: D72.828 - recheck - PATHOLOGIST INTERPRETATION WITH CBC AND DIFF 14. Monocytosis - ICD9: 288.63, ICD10: D72.821 - PATHOLOGIST INTERPRETATION WITH CBC AND DIFF 15. BMI 39.0-39.9,adult - ICD9: V85.39, ICD10: Z68.39 - VITAMIN D 25 HYDROXY 16. Postablative hypothyroidism - ICD9: 244.1, ICD10: E89.0 - MAGNESIUM - TSH W/REFLEX FT4 Freddy Nava MD Keep next follow up. I spent 40 minutes in the visit, with more than 50% of the total [id number] time of the visit in counseling / coordination of care. documented in this encounterSt. [facility]02-27-[address] [facility] Medical Records Department [address] [place] [address] History Physical Exam 06/19/24 0709 MR#: [id number] Acct: [id number] Name: MARIBELL GARZON Rep #: [id number] : 1965 58 From: Ti Martinez DO PCP: Dr. Freddy Nava MD Status:[facility] Location: [place] [address] HPI - General General Date of Admission: 06/19/24 Date of Service: 06/19/24 Chief Complaint: GERD HPI Narrative MARIBELL GARZON, is a 58 F who presents for the endoscopic evaluation of worsening GERD. Pt has a long hx of acid reflux. Every time she tries a PPI she will get a leg swelling so she saw a genetic pharmacist and they told her to take nizatidine. SHe did pick this up from the pharmacist but has never tried it as she is nervous. SHe is here today because her pain is getting worse and she feels she needs a scope. Foods that trigger her reflux symptoms included diet and spicy foods. She has been having issues with PNA and was told it could be from aspiration of reflux. Her last EGD was about [address] Hernandez. She does have IBS type symptoms with alternating bowels. SHe has a bm once daily. These symptoms are tolerable to her. 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 On home oxygen therapy Sleep apnea Lumbar degenerative disc disease Dominguez's cyst of knee Vitamin D deficiency Acquired hypothyroidism Essential hypertension IBS (irritable bowel syndrome) Meniere disease Depression Anxiety Hyperthyroidism Sinus tachycardia Paroxysmal SVT (supraventricular tachycardia) Premature ventricular contraction Premature atrial contractions Home Medications ???Medication ???Instructions ???Recorded ???Last Taken ???Type nizatidine 150 mg capsule 150 mg PO BID 03/31/24 Unknown His tory blood sugar diagnostic (OneTouch 06/13/24 Unknown History Verio test strips) blood-glucose sensor (FreeStyle 06/13/24 Unknown History Allyson 3 Plus Sensor device) alprazolam 1 mg tablet 1 mg PO TID PRN 06/16/24 Unknown H istory cholecalciferol (vitamin D3) 25 25 mcg PO QDAY 06/16/24 Unknown Hi story mcg (1,000 unit) capsule dicyclomine 10 mg capsule 10 mg PO TID PRN 06/16/24 Unknown History drospirenone (contraceptive) 4 mg 4 mg PO QDAY contraceptive Unknown History (28) tablet (Slynd) levothyroxine 150 mcg tablet 150 mcg PO DAILY 06/16/24 Unknown History (Synthroid) sucralfate 1 gram tablet PO 4XD 06/16/24 Unknown History Allergy/AdvReac Type Severity Reaction Status Date / Time codeine Allergy Rash Verified 06/19/24 06:52 hydrocodone bitartrate (From Allergy Rash Verified 06/19/24 06:52 Vicodin) methimazole (From Tapazole) Allergy Shortness Verified 06/19/24 06:52 of breath metformin AdvReac Intermediate myalgias Verified 06/19/24 06:52 famotidine (From Pepcid) AdvReac Unknown Unknown Verified 06/19/24 06:52 estradiol (From CombiPatch) AdvReac myalgias, Verified 06/19/24 06:52 lip/mouth burn, SOB, nausea, dizziness methylprednisolone sodium AdvReac Other Verified 06/19/24 06:52 succinate (From Solu-Medrol) norethindrone (From AdvReac myalgias, Verified 06/19/24 06:52 CombiPatch) lip/mouth burn, SOB, nausea, dizziness oxycodone HCl (From Percocet) AdvReac Nausea/Vom/ Verified 06/19/24 06:52 Diarrhea cyp 2019 AdvReac Intermediate unknown Uncoded 05/09/24 13:31 CYP2B6 AdvReac Unknown unknown Uncoded 05/09/24 13:31 Family History Father CAD (coronary artery disease) Hypertension Myocardial infarction, Onset Age: 66 Hx of CABG Colon cancer Diabetes Mother CVA (cerebral vascular accident) Diabetes Sister Thyroid disorder Surgical History Hx of radioactive iodine thyroid ablation History of left oophorectomy History of tubal ligation History of cholecystectomy Social History Smoking Status: Heavy Smoker (>10/day) alcohol intake: never substance use type: does not use caffeine: No ROS Constitutional Constitutional: Denies fatigue, fever(s), poor appetite, weight gain or weight loss Gastrointestinal Gastrointestinal: Denies belching, bloating, change in bowel habits, change in stool character, chewing difficulty, coffee ground emesis, constipation, cramping, diarrhea, dyspepsia, dy (more content not included)...[facility]02-20-2025 Telephone encounter Note* Telephone Encounter - Judy Galan MA - 06/15/2024 4:33 PM EST Fax cover sheet filled out with all information needed and that along with appeal letter from Dr. Nava faxed to number provided. Judy Galan MA [facility]02-[facility] Miscellaneous Notes* Telephone Encounter - Judy Galan MA - 06/15/2024 4:33 PM EST Fax cover sheet filled out with all information needed and that along with appeal letter from Dr. Nava faxed to number provided. Judy Galan MA * Telephone Encounter - Sudha Pink LPN - 06/15/2024 4:20 PM EST Good morning, Please see the following short guidance on what your appeal must have in order to be processed correctly: 1. Coversheet including the below information: A coversheet is also required, so, I would like to share a template you can use for appeals coversheets, since this is very helpful for insurances processing your appeals correctly and routing the documents to the correct department for review, you just need to fill it with the specific information regarding this patient and the denied case (see worddocument attached). Patient's information (Full name, , ID#) Ordering provider's information (Name, NPI, phone & fax number) Facility's information (NPI, TAX ID, Address) Case reference number: [id number] Code in matter: 01656 ECHO 2. A formal letter explaining why you consider the procedure is appropriate for the member. 3. Attach any clinical documentation which proves the medical necessity of your request. 4. The insurance requires a formal appeal form filled out: (See see links to get the forms below: Provider form: [email or web address] Memberform: [email or web address] ) You need to fill 2 forms, one is the provider clinical appeal form that should be filledby the doctor's office and the other form that needs to be filled, is the Member's consent form, that needs to be signed by the patient (see both pdfs attached). 5. When all documentation is ready, send it over at Appeal fax#: [phone] Finally, please let us know once you send this to the insurance, so that way we can have our team following up on until final determination is made. And let me know if further assistance is required. Regards, * Telephone Encounter - Sudha Pink LPN - 06/14/2024 4:04 PM EST No fax # was given so sent message to request one. * Telephone Encounter - Freddy Nava MD - 06/14/2024 3:21 PM EST See below. Letter printed. Please fax. * Telephone Encounter - Freddy Nava MD - 06/14/2024 3:21 PM EST ----- Message from Lizabeth Lisa sent at 06/14/2024 12:39 PM EST ----- Regarding: Confidential // Peer to peer: PtSarah Maribell Garzon // Referral [phone] Good afternoon, The below information is for a peer to peer for a service you have requested. Patient Information Patient Last NameSmith Patient First NameLisa Date of Birth1965 [id number] Clinical Clearance / Financial Clearance StatusPending Clinical Clearance Notifications are supported by our vito policy and used when an immediate payer source is not available. The CCN process can allow cases to be completed while still working to obtain payer's authorization due to urgency or medical necessity. This process should not preclude usfrom completing the steps needed to secure authorization such us P2P and appeal as this will still allow us to receive the appropriate reimbursement. Denial Overview Denial TypePayer Clinical Guidelines Not Met Denial Rationale Based on what was given, you may have had shortness of breath, your doctor's request cannot be approved. A person might need a(n) Transthoracic Echocardiogram if these notes have/hasbeen given: a formal report of the last heart test (Transthoracic Echo) done in 2011, and doctor's notes telling us about this problem such as how long you have had it, and how it is getting worse. The information we got did not include these notes. Date of Service06/16/2024 Is Peer to Peer Available? (Instructions below)Yes Peer to Peer DeadlineASAP Appeal Deadline (Instructions below)N/A Insurance Case Information Insurance Name[employer] Patient's Insurance Case#[id number] Ordering FREDDY Blackmon Approved Services N/A Denied Services 06111 ECHO Alternative RecommendationN/A #Service which can be approved in place of denied service. Clinical Documentation ProvidedNot listed Peer to Peer Instructions Peer to Peer opt 2 (enter tracking#) / opt 1 Does Peer to Peer need to be scheduled?No Who can complete the Peer to Peer?MD, CLINICAL REVIEW SPECIALIST, PA, LN Additional Peer to Peer InstructionsYou can call for the peer to peer at the date and time of your convenience Appeal Instructions Appeal AddressN/A Appeal Fax#N/A Required Form(s)N/A Additional Appeal InstructionsN/A Facility Information [facility] [id number] Tax ID#[id number] Best regards, documented in this encounterSt. [facility]02-[facility]-2025 Telephone encounter Note * Telephone Encounter - Sudha Pink, PANTOGRAPH MACHINE OPERATOR - 06/15/2024 4:20 PM EST Good morning, Please see the following short guidance on what your appeal must have in order to be processed correctly: 1. Coversheet including the below information: A coversheet is also required, so, I would like to share a template you can use for appeals coversheets, since this is very helpful for insurances processing your appeals correctly and routing the documents to the correct department for review, you just need to fill it with the specific information regarding this patient and the denied case (see worddocument attached). Patient's information (Full name, , ID#) Ordering provider's information (Name, NPI, phone & fax number) Facility's information (NPI, TAX ID, Address) Case reference number: [id number] Code in matter: 39634 ECHO 2. A formal letter explaining why you consider the procedure is appropriate for the member. 3. Attach any clinical documentation which proves the medical necessity of your request. 4. The insurance requires a formal appeal form filled out: (See see links to get the forms below: Provider form: [email or web address] Memberform: [email or web address] ) You need to fill 2 forms, one is the provider clinical appeal form that should be filledby the doctor's office and the other form that needs to be filled, is the Member's consent form, that needs to be signed by the patient (see both pdfs attached). 5. When all documentation is ready, send it over at Appeal fax#: [phone] Finally, please let us know once you send this to the insurance, so that way we can have our team following up on until final determination is made. And let me know if further assistance is required. Regards, [facility]02-20-2025 History of Present illness Narrative* Freddy Nava MD - 06/15/2024 9:03 AM EST Patient presents with: Follow Up HPI:This visit is a virtual encounter. It required patient-provider interaction for the medical decision making as documented below. Patient has elected to have a visit through distance medicine I have communicated my name and active licensure. The patient's identity and physical location wereverified at the time of this visit. Either the patient or their legal high school admissions representative has been informed of the risks and benefits of -- and alternatives to -- treatment through a remote evaluation andconsents to proceed with the evaluation remotely. Presents to go over lab results. Her white count is declining. Her hb remains minimally high. Her carboxyhb is high and she is a smoker. She also has very difficult to treat andressa. She was to do a titration for sleep med but had not. Willlet her know she is now willing to do it. No current fever or signs of infection. Will follow counts She is not an inspire candidate based on bmi. Discussed oral appliances and glp1's Her liver is up. Has known fatty liver. Discussed weight loss. She has also had chronic reflux. We have discussed having her continue to try to take her axid. In addition, she has an appt to see endo. Her labs are indicative of impaired glucose tolerance. She does not do well with most meds and could not tolerate metformin. Again, her cgm had shown some hypoglycemic spells. Latest Ref Rng 06/06/2024 06/13/2024 WBC 3.70 - 11.00 k/uL 12.46 (H) 12.22 (H) RBC 3.90 - 5.20 m/uL 5.07 5.12 Hemoglobin 11.5 - 15.5 g/dL 16.2 (H) 16.2 (H) Hematocrit 36.0 - 46.0 % 49.3 (H) 48.1 (H) MCV 80.0 - 100.0 fL 97.2 93.9 MCH 26.0 - 34.0 pg 32.0 31.6 MCHC 30.5 - 36.0 g/dL 32.9 33.7 RDW-CV 11.5 - 15.0 % 12.9 12.8 Platelet Count 150 - 400 k/uL 287 266 MPV 9.0 - 12.7 fL 10.2 9.5 Neut% % 53.6 61.9 Abs Neut (ANC) 1.45 - 7.50 k/uL 6.69 7.58 (H) Lymph% % 34.7 27.2 Abs Lymph 1.00 - 4.00 k/uL 4.32 (H) 3.32 [place]% % 8.7 8.1 Abs [place] <0.87 k/uL 1.08 (H) 0.99 (H) Eosin% % 1.7 1.5 Abs Eosin <0.46 k/uL 0.21 0.18 Baso% % 0.6 0.6 Abs Baso <0.11 k/uL 0.07 0.07 Immature Gran % % 0.7 0.7 IMMATURE GRANS (ABS) <0.10 k/uL 0.09 0.08 NRBC /100 WBC 0.0 0.0 Absolute nRBC <0.01 k/uL <0.01 <0.01 Red Cell Morph Reviewed: unremarkable DTYPE Auto Auto Protein, Total 6.3 - 8.0 g/dL 7.7 7.5 Albumin 3.9 - 4.9 g/dL 4.3 4.3 Calcium 8.5 - 10.2 mg/dL 9.7 9.5 Bilirubin, Total 0.2 - 1.3 mg/dL 0.2 0.4 Alkaline Phosphatase 34 - 123 U/L 91 71 AST 13 - 35 U/L 37 (H) 40 (H) ALT 7 - 38 U/L 59 (H) 63 (H) Glucose 74 - 99 mg/dL 103 (H) 100 (H) BUN 7 - 21 mg/dL 9 10 Creatinine 0.58 - 0.96 mg/dL 0.77 0.82 Sodium 136 - 144 mmol/L 139 137 Potassium 3.7 - 5.1 mmol/L 3.9 3.7 Chloride 98 - 107 mmol/L 101 102 CO2 22 - 30 mmol/L 31 (H) 26 Anion Gap 8 - 15 mmol/L 7 (L) 9 eGFR >=60 mL/min/1.73m 90 83 Bilirubin, Direct <0.3 mg/dL 0.1 Hemoglobin A1C 4.3 - 5.6 % 6.1 (H) Estimated Average Glucose mg/dL 128 NT Pro BNP <125 pg/mL <36 Carboxyhemoglobin, Venous 0.0 - 2.0 % 10.1 (H) Insulin, Total 2.6 - 24.9 uU/mL 25.1 (H) C-Peptide 1.1 - 4.4 ng/mL 4.6 (H) HCV RNA Not detected Not detected Hep B Surface Ag Negative Negative Hep A Ab, IgM Negative Negative Hep B Core Ab, IgM Negative Negative Legend: (H) High (L) Low MEDICATIONS: Current Outpatient Medications Medication Sig dicyclomine (BENTYL) 10 mg capsule Take 1 capsule by mouth before meals and at bedtime. Prn Blood-Glucose Meter,Continuous (FREESTYLE ALLYSON 3 READER) misc Use to check blood sugar at least four (4) times daily. Blood-Glucose Sensor (FREESTYLE ALLYSON 3 PLUS SENSOR) christian Apply new sensor every fifteen (15) days to upper arm. Nizatidine (AXID) 150 mg capsule Take 1 capsule by mouth two times a day. ALPRAZolam (XANAX) 1 mg tablet Take 1 tablet by mouth three times a day as needed for up to 30 days. blood sugar diagnostic (BLOOD GLUCOSE TEST) test strip Test blood sugar(s) 2 times daily. Insulin: No drospirenone, contraceptive, (SLYND) 4 mg (28) tabet Take 1/4 pill daily. Noncontraceptive purpose.Please apply company discount, process as self-pay if insurance does not cover. sucralfate (CARAFATE) 1 gram tablet Take 1 tablet by mouth before meals and at bedtime. SYNTHROID 150 mcg tablet Take 1 tablet by mouth once daily. Except 1/2 tab Sun and Sat cholecalciferol (VITAMIN D3) 1,000 unit tab tablet Take 1 tablet by mouth once daily. Lancets lancets Test [...] 2 stroke Colon Cancer Father age 64 [place] Diabetes Father Type 2 Hypertension Father Coronary Artery Disease Father Hx of [place] Thyroid Sister hx of parathyroid disease/ hx of fibroids other (healthy) Brother other (healthy) Brother Allergies Daughter other (healthy) Daughter other (healthy) Son other (healthy) Son other (healthy) Son other (healthy) Son Colon Cancer Paternal Aunt x5 Colon Cancer Paternal Uncle x8 Social History Tobacco Use Smoking status: Every Day Current packs/day: 1.00 Average packs/day: 1 pack/day for 20.0 years (20.0 ttl pk-yrs) Types: Cigarettes Smokeless tobacco: Never Vaping Use Vaping status: Never Used Substance Use Topics Alcohol use: No Drug use: No Reviewed current medications, allergies, past medical history, surgical history, family history andsocial history today. REVIEW OF SYSTEMS All other reviewed and negative other than HPI. VITALS: Could not assess Last 4 Encounter Wt Readings: Date: Wt: 06/06/2024 98.4 kg (217 lb) 11/29/2023 95.7 kg (211 lb) 11/16/2023 95.3 kg (210 lb) 10/14/2023 96.2 kg (212 lb) PHYSICAL EXAMINATION: Patient is alert and oriented during visit. Answers appropriately. Breathing comfortably.. chest rise normal. No audible wheeze. No pallor. ASSESSMENT/PLAN: 1. ANDRESSA (obstructive sleep apnea) - ICD9: 327.23, ICD10: G47.33 (primary diagnosis) - now that is willing to try bipap titration, will see if we can get it set up at [facility]. Has known andressa and is intolerant of cpap. Has snoring, apneas and fatigue. 2. Monocytosis - ICD9: 288.63, ICD10: D72.821 - follow labs in one month. .wlre - PATHOLOGIST INTERPRETATION WITH CBC AND DIFF 3. Other elevated white blood cell (WBC) count - ICD9: 288.69, ICD10: D72.828 - PATHOLOGIST INTERPRETATION WITH CBC AND DIFF 4. Fatty liver - ICD9: 571.8, ICD10: K76.0 - discussed weight loss. - GGT - HEPATIC FUNCTION PNL 5. Controlled type 2 diabetes mellitus without complication, unspecified whether salvage determiner insulin use (HCC) - ICD9: 250.00, ICD10: E11.9 - watch diet. 6. Hypoglycemia - ICD9: 251.2, ICD10: E16.2 - see endo. 7. Polycythemia - ICD9: 238.4, ICD10: D75.1 - recheck labs in one month. Discussed her carboxy is likely from smoking. Treating andressa may help. Has carbon monoxide rajesh. Freddy Nava MD NAME: Maribell Garzon Patient presents for a Liver Biopsy. The procedure risks, benefits, and alternatives were discussed with the patient. Patient agrees to proceed. {PROCEDURE PERFORMED:15813} Medications: Demerol: {DEMEROL:76695} Versed: {VERSED:24729} Fentanyl: {FENTANYL:93753} 2% Lidocaine: {LOCAL ANESTHETIC:33737} Procedure Notes: The patient was placed in the supine position. The liver was localized with ultrasound guidance. The tract was anesthetized with a local anesthetic. A 16 gauge Monopty Trucut needle was used to obtain {BIOPSY(S) OBTAINED:91393} with {PASSES MADE:64552}. There were no immediate complications associated with the procedure.. Freddy Nava MD documented in this encounterSt. [facility] Telephone encounter Note * Telephone Encounter - Freddy Nava MD - 06/14/2024 5:14 PM EST Noted. They White count and neutrophils are borderline high and actually are improving-let alone stable. (was 13.5 recently in er when urine and xray were done and were ok). I was just trying to saveanother follow up before all info was back. I was delaying comment until all was back. If there was an infection, it had already occurred and is resolving such as a viral infection. . The only thing I was considering was having her reduce smoking and recheck a cbc with path in 2 weeks to reassess the monocytosis given the white count and hb.A carboxyhemoglobin of concern in smokers is usually often as high as 15. And her hb is barely above normal. Sugars are suggestive of insulin resistance and she is going to see endo because of the concerns with hypoglycemia. 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 Work up further depends on those levels. [facility]02-19-[facility]25 Miscellaneous Notes* Telephone Encounter - Freddy Nava MD - 06/14/2024 5:14 PM EST Noted. They White count and neutrophils are borderline high and actually are improving-let alone stable. (was 13.5 recently in er when urine and xray were done and were ok). I was just trying to saveanother follow up before all info was back. I was delaying comment until all was back. If there was an infection, it had already occurred and is resolving such as a viral infection. . The only thing I was considering was having her reduce smoking and recheck a cbc with path in 2 weeks to reassess the monocytosis given the white count and hb.A carboxyhemoglobin of concern in smokers is usually often as high as 15. And her hb is barely above normal. Sugars are suggestive of insulin resistance and she is going to see endo because of the concerns with hypoglycemia. 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 Work up further depends on those levels. * Telephone Encounter - Judy Galan MA - 06/14/2024 4:58 PM EST Patient states her labs are not stable. She's concerned about her WBC and neutrophils. She wants tokeep scheduled appt. Judy Galan MA * Telephone Encounter - Freddy Nava MD - 06/14/2024 4:36 PM EST I just saw Maribell added herself to visit in am to go over labs. Let her know they are all not back yet. So far, they are stable. I am not sure there is much to go over in am. documented in this encounterSt. [facility] Hospital02-[facility]-2025 Telephone encounter Note * Telephone Encounter - Judy Galan MA - 06/14/2024 4:58 PM EST Patient states her labs are not stable. She's concerned about her WBC and neutrophils. She wants tokeep scheduled appt. Judy Galan MA [facility]02-19-2025 Telephone encounter Note* Telephone Encounter - Freddy Nava MD - 06/14/2024 4:36 PM EST I just saw Maribell added herself to visit in am to go over labs. Let her know they are all not back yet. So far, they are stable. I am not sure there is much to go over in am. [facility]02-19-2025 Telephone encounter Note* Telephone Encounter - Sudha Pink LPN - 06/14/2024 4:04 PM EST No fax # was given so sent message to request one. [facility]02-19-[facility] Telephone encounter Note* Telephone Encounter - Freddy Nava MD - 06/14/2024 3:21 PM EST See below. Letter printed. Please fax. [facility]02-19-2025 Telephone encounter Note* Telephone Encounter - Freddy Nava MD - 06/14/2024 3:21 PM EST ----- Message from Lizabeth Gonzalez sent at 06/14/2024 12:39 PM EST ----- Regarding: Confidential // Peer to peer: PtSarah Garzon // Referral [id number] Good afternoon, The below information is for a peer to peer for a service you have requested. Patient Information Patient Last NameSmith Patient First NameLisa Date of Birth1965 [id number] Clinical Clearance / Financial Clearance StatusPending Clinical Clearance Notifications are supported by our vito policy and used when an immediate payer source is not available. The CCN process can allow cases to be completed while still working to obtain payer's authorization due to urgency or medical necessity. This process should not preclude usfrom completing the steps needed to secure authorization such us P2P and appeal as this will still allow us to receive the appropriate reimbursement. Denial Overview Denial TypePayer Clinical Guidelines Not Met Denial Rationale Based on what was given, you may have had shortness of breath, your doctor's request cannot be approved. A person might need a(n) Transthoracic Echocardiogram if these notes have/hasbeen given: a formal report of the last heart test (Transthoracic Echo) done in 2011, and doctor's notes telling us about this problem such as how long you have had it, and how it is getting worse. The information we got did not include these notes. Date of Service06/16/2024 Is Peer to Peer Available? (Instructions below)Yes Peer to Peer DeadlineASAP Appeal Deadline (Instructions below)N/A Insurance Case Information [facility] Patient's Insurance Case#[id number] Ordering FREDDY Blackmon Approved Services N/A Denied Services 10437 ECHO Alternative RecommendationN/A #Service which can be approved in place of denied service. Clinical Documentation ProvidedNot listed Peer to Peer Instructions Peer to Peer opt 2 (enter tracking#) / opt 1 Does Peer to Peer need to be scheduled?No Who can complete the Peer to Peer?, CLINICAL REVIEW SPECIALIST, PA, LN Additional Peer to Peer InstructionsYou can call for the peer to peer at the date and time of your convenience Appeal Instructions Appeal AddressN/A Appeal Fax#N/A Required Form(s)N/A Additional Appeal InstructionsN/A [id number] Tax ID#[id number] Best regards, [facility]02-17-2025 History of Present illness Narrative* Freddy Nava MD - 06/12/2024 2:00 PM EST Patient presents with: Follow Up HPI:This visit is a virtual encounter. It required patient-provider interaction for the medical decision making as documented below. Patient has elected to have a visit through distance medicine I have communicated my name and active licensure. The patient's identity and physical location wereverified at the time of this visit. Either the patient or their legal high school admissions representative has been informed of the risks and benefits of -- and alternatives to -- treatment through a remote evaluation andconsents to proceed with the evaluation remotely. Has had her cgm which is correlating with her glucometer and was reading in the 50's. Was told years ago had reactive hypoglycemic. She is worried that her glucose issues are causing her symptoms. She is not anything that would lower it severely. Often happening at night when sleeping. Has happened at times an hour and a half or two hours after she eats and then gets sick. Can get palpitations etc. MEDICATIONS: Current Outpatient Medications Medication Sig dicyclomine (BENTYL) 10 mg capsule Take 1 capsule by mouth before meals and at bedtime. Prn Blood-Glucose Meter,Continuous (FREESTYLE ALLYSON 3 READER) misc Use to check blood sugar at least four (4) times daily. Blood-Glucose Sensor (FREESTYLE ALLYSON 3 PLUS SENSOR) christian Apply new sensor every fifteen (15) days to upper arm. Nizatidine (AXID) 150 mg capsule Take 1 capsule by mouth two times a day. ALPRAZolam (XANAX) 1 mg tablet Take 1 tablet by mouth three times a day as needed for up to 30 days. blood sugar diagnostic (BLOOD GLUCOSE TEST) test strip Test blood sugar(s) 2 times daily. Insulin: No drospirenone, contraceptive, (SLYND) 4 mg (28) tabet Take 1/4 pill daily. Noncontraceptive purpose.Please apply company discount, process as self-pay if insurance does not cover. sucralfate (CARAFATE) 1 gram tablet Take 1 tablet by mouth before meals and at bedtime. SYNTHROID 150 mcg tablet Take 1 tablet by mouth once daily. Except 1/2 tab Sun and Sat cholecalciferol (VITAMIN D3) 1,000 unit tab tablet Take 1 tablet by mouth once daily. Lancets lancets Test [...] 2 stroke Colon Cancer Father age 64 [place] Diabetes Father Type 2 Hypertension Father Coronary Artery Disease Father Hx of [place] Thyroid Sister hx of parathyroid disease/ hx of fibroids other (healthy) Brother other (healthy) Brother Allergies Daughter other (healthy) Daughter other (healthy) Son other (healthy) Son other (healthy) Son other (healthy) Son Colon Cancer Paternal Aunt x5 Colon Cancer Paternal Uncle x8 Social History Tobacco Use Smoking status: Every Day Current packs/day: 1.00 Average packs/day: 1 pack/day for 20.0 years (20.0 ttl pk-yrs) Types: Cigarettes Smokeless tobacco: Never Vaping Use Vaping status: Never Used Substance Use Topics Alcohol use: No Drug use: No Reviewed current medications, allergies, past medical history, surgical history, family history andsocial history today. REVIEW OF SYSTEMS All other reviewed and negative other than HPI. VITALS: Could not assess Last 4 Encounter Wt Readings: Date: Wt: 06/06/2024 98.4 kg (217 lb) 11/29/2023 95.7 kg (211 lb) 11/16/2023 95.3 kg (210 lb) 10/14/2023 96.2 kg (212 lb) PHYSICAL EXAMINATION: Patient is alert and oriented during visit. Answers appropriately. Breathing comfortably.. chest rise normal. No audible wheeze. No pallor. ASSESSMENT/PLAN: 1. Hypoglycemia - ICD9: 251.2, ICD10: E16.2 (primary diagnosis) - start with labs - discussed diet. - CONSULT TO ENDOCRINOLOGY - BASIC METABOLIC PANEL - HEMOGLOBIN A1C - INSULIN, TOTAL, SERUM - C-PEPTIDE BLD 2. Controlled type 2 diabetes mellitus without complication, unspecified whether salvage determiner insulin use (HCC) - ICD9: 250.00, ICD10: E11.9 - CONSULT TO ENDOCRINOLOGY - BASIC METABOLIC PANEL - HEMOGLOBIN A1C - INSULIN, TOTAL, SERUM - C-PEPTIDE BLD Freddy Nava MD documented in this encounterSt. [facility] Hospital02-17-[address] 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 Pt is going to send HelpAroundto provider. 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 Pt is going to send [employer] [facility])t messageto provider. * Telephone Encounter - Nella Hernandez RN - 06/12/2024 11:50 AM EST Patient calls to request providers [employer] 3+ view code. Contacted office and provider doesn't have a code. Office recommends patient look at the average blood sugar of the monitor. Attempted to call patient back to notify with no answer x 2 and not able to leave a voicemail. Will try again. Please notify patient of above if calls back. Nella Hernandez RN documented in this encounterSt. [facility] Hospital02-17-2025 Telephone encounter Note * Telephone Encounter - Nella Hernandez RN - 06/12/2024 11:50 AM EST Patient calls to request providers [employer] 3+ view code. Contacted office and provider doesn't have a code. Office recommends patient look at the average blood sugar of the monitor. Attempted to call patient back to notify with no answer x 2 and not able to leave a voicemail. Will try again. Please notify patient of above if calls back. Nella Hernandez RN [facility]02-[facility]-2025 Telephone encounter Note* Telephone Encounter - Freddy Nava MD - 06/06/2024 3:59 PM EST See te [facility]02-11-2025 Miscellaneous Notes* Telephone Encounter - Freddy Nava MD - 06/06/2024 3:59 PM EST See te * Telephone Encounter - Yarelis Peñaloza LPN - 06/06/2024 9:03 AM EST Please see mychart message documented in this encounterSt. [facility] Hospital02-11-2025 Telephone encounter Note * Telephone Encounter - Yue Vital LPN - 06/06/2024 3:36 PM EST Pt calling from [facility] there is no prescription for Allyson 3 and anything that is needed with this there. Pt was seen this am and thought you were sending this for her. She is going to wait for a short period of time. She has to drive 30 minutes. Please advise pt as soon as this has been sent. Yue Vital LPN [facility]02-11-2025 Miscellaneous Notes* Telephone Encounter - Yue Vital LPN - 06/06/2024 3:36 PM EST Pt calling from [facility] there is no prescription for Allyson 3 and anything that is needed with this there. Pt was seen this am and thought you were sending this for her. She is going to wait for a short period of time. She has to drive 30 minutes. Please advise pt as soon as this has been sent. Yue Vital LPN documented in this encounterSt. Elizabeth Hospital02-11-[address] [facility] History of Present illness Narrative* Freddy Nava MD - 06/06/2024 2:16 PM EST Patient presents with: Swelling HPI: Patient presents today for office visit for swelling. Has noticed some swelling in her feet/ankles/legs and hands with some distention in her abdomen. Pain in her abdomen. Leg elevation does not help. She is worried that she has something blocking off her stomach. Has had two pet scans in the last few months that were ok. Has lung nodules pulmonary is following and they feel it is likely infectious. No chest pain with exertion. No increased belching or burping. Has not yet tried axid. Has had some swelling in the past if the uses it too much. Admits that bentyl felt perfect immediately in ER Did make her head feel funny but it was 20 mg a day. She always swells when she is having hormone issues. She is not taking them since covid. Offered to check bnp and echo. Note was copied and pasted, without alteration from last ov: Presents for follow up from [facility] ER visit. Started not feeling well a week ago. Her hr was up and dehydrated. Covid was positive. Had labs, chest xray, cta. She wonders if she is having bile reflux. Saw Dr Michelle two or three weeks ago. Had also seen pulmonary. Scheduled for egd end of June. She is following with pulmonary for a lung nodule. Has had pet scans. She states they do not feel it is a malignancy but wonder if it is related to aspiration/reflux. We have very little records outside of scans. Will try to get records. Only meds she tolerates is axid. Has tried most ppis and h2 blockers. Her covid symptoms are stable. No fever or shortness of breath. Is off her hormones for a short while while post covid. Requests small amount of xanax to run her through. Oarrs done. Has not had any in a long time. Aware of risks. MEDICATIONS: Current Outpatient Medications Medication Sig dicyclomine (BENTYL) 20 mg tablet Take 20 mg by mouth. Nizatidine (AXID) 150 mg capsule Take 1 capsule by mouth two times a day. ALPRAZolam (XANAX) 1 mg tablet Take 1 tablet by mouth three times a day as needed for up to 30 days. blood sugar diagnostic (BLOOD GLUCOSE TEST) test strip Test blood sugar(s) 2 times daily. Insulin: No drospirenone, contraceptive, (SLYND) 4 mg (28) tabet Take 1/4 pill daily. Noncontraceptive purpose.Please apply company discount, process as self-pay if insurance does not cover. sucralfate (CARAFATE) 1 gram tablet Take 1 tablet by mouth before meals and at bedtime. SYNTHROID 150 mcg tablet Take 1 tablet by mouth once daily. Except 1/2 tab Sun and Sat cholecalciferol (VITAMIN D3) 1,000 unit tab tablet Take 1 tablet by mouth once daily. Lancets lancets Test [...] 2 stroke Colon Cancer Father age 64 ND Diabetes Father Type 2 Hypertension Father Coronary Artery Disease Father Hx of ND Thyroid Sister hx of parathyroid disease/ hx of fibroids other (healthy) Brother other (healthy) Brother Allergies Daughter other (healthy) Daughter other (healthy) Son other (healthy) Son other (healthy) Son other (healthy) Son Colon Cancer Paternal Aunt x5 Colon Cancer Paternal Uncle x8 Social History Tobacco Use Smoking status: Every Day Current packs/day: 1.00 Average packs/day: 1 pack/day for 20.0 years (20.0 ttl pk-yrs) Types: Cigarettes Smokeless tobacco: Never Vaping Use Vaping status: Never Used Substance Use Topics Alcohol use: No Drug use: No Reviewed current medications, allergies, past medical history, surgical history, family history andsocial history today. REVIEW OF SYSTEMS All other reviewed and negative other than HPI. HEALTH MAINTENANCE: Reviewed health maintenance issues today and recommended the following in detail. Dilated Retinal Exam Never done Lung Cancer Screening due on 04/23/2017 Influenza Vaccine(1) due on 12/26/2023 Covid-19 Vaccine(2 - season) due on 12/26/2023 Mammogram Screening due on 07/01/2024 VITALS: BP 154/64 Pulse 90 Ht 158.8 cm (5' 2.5) Wt 98.4 kg (217 lb) LMP 03/10/2010 SpO2 96% BMI 39.06 kg/m Last 4 Encounter Wt Readings: Date: Wt: 06/06/2024 98.4 kg (217 lb) 11/29/2023 95.7 kg (211 lb) 11/16/2023 95.3 kg (210 lb) 10/14/2023 96.2 kg (212 lb) PHYSICAL EXAMINATION: General appearance: Well appearing, alert, in no acute distress, well-hydrated, well nourished. Skin: Skin color, texture, turgor normal, no suspicious rashes or lesions Head: Normocephalic, no masses, lesions, tenderness or abnormalities Lungs: Lungs clear to auscultation. No wheezing, rhonchi, rales Heart: RRR without murmur, gallop, or rubs. No ectopy Abdomen: Normal abdominal exam, Abdomen soft, non-tender. Bowel sounds normal. No masses, organomegaly Extremities: No deformities, edema, skin discoloration, clubbing or cyanosis. Good capillary refill. ASSESSMENT/PLAN: 1. SOB (shortness of breath) - ICD9: 786.05, ICD10: R06.02 (primary diagnosis) - check echo and labs. Call if worsening. - NT PRO BNP - COMPREHENSIVE METABOLIC PANEL - COMPLETE BLOOD COUNT AND DIFFERENTIAL - ECHO - PERFLUTREN LIPID MICROSPHERES 1.1 MG/ML INJECTION IN NS 10 ML - SODIUM CHLORIDE 0.9 % (FLUSH) INJECTION SYRINGE 2. Edema, unspecified type - ICD9: 782.3, ICD10: R60.9 - stable. Will check echo. 3. Gastroesophageal reflux disease without esophagitis - ICD9: 530.81, ICD10: K21.9 Discussed risks and benefits of new medication with the patient. Advised them to call if any side effects or questions. Try lower dose of meds. - DICYCLOMINE 10 MG CAPSULE 4. Irritable bowel syndrome without diarrhea - ICD9: 564.1, ICD10: K58.9 - as above. Freddy Nava MD documented in [facility] encounter[facility] Telephone encounter Note * Telephone Encounter - Yarelis Peñaloza LPN - 06/06/2024 9:03 AM EST Please see Reddit message [facility] Telephone encounter Note* Telephone Encounter - Judy Galan MA - 05/26/2024 1:53 PM EST Faxed. Judy Galan MA [facility] Miscellaneous Notes* Telephone Encounter - Judy Galan MA - 05/26/2024 1:53 PM EST Faxed. Judy Galan MA * Telephone Encounter - Freddy Nava MD - 05/26/2024 1:38 PM EST Ok to send * Telephone Encounter - Judy Galan MA - 05/26/2024 1:25 PM EST Spoke to Shakir with [facility] and confirmed yes, they needs an order for an nocturnal pulse ox. Judy Galan MA * Telephone Encounter - Freddy Nava MD - 05/26/2024 1:13 PM EST ? Cancelled appt today. Do they want an order for a nocturnal pulse ox?? * Telephone Encounter - Yue Vital LPN - 05/25/2024 9:44 AM EST Shakir with [facility] calling for a script for 02 testing room air - providing nocturnal only. Please discuss at office visit tomorrow 05-26-24 with pcp. Yue Vital LPN FAX: [phone] PH: [phone] ext [phone] Yue Vital LPN documented in this encounterSt. [facility]01-[facility]25 Telephone encounter Note * Telephone Encounter - Freddy Nava MD - 05/26/2024 1:38 PM EST Ok to send [facility] Telephone encounter Note* Telephone Encounter - Judy Galan MA - 05/26/2024 1:25 PM EST Spoke to Shakir with [facility] and confirmed yes, they needs an order for an nocturnal pulse ox. Judy Galan MA [facility] Telephone encounter Note* Telephone Encounter - Freddy Nava MD - 05/26/2024 1:13 PM EST ? Cancelled appt today. Do they want an order for a nocturnal pulse ox?? [facility] encounter Note* Telephone Encounter - Yue Vital LPN - 05/25/2024 9:44 AM EST Shakir with [facility] calling for a script for 02 testing room air - providing nocturnal only. Please discuss at office visit tomorrow 05-26-24 with pcp. Yue Vital LPN FAX: [phone] PH: [phone] ext [phone] [facility] Telephone encounter Note* Telephone Encounter - Jaclyn Block LPN - 05/17/2024 9:45 AM EST Images from the original note were not included. Electronic PA completed for nizatidine. This was approved. rior authorization approved Payer: [facility] Note from payer: Your PA request for [id number] was approved for 84 days. The PA# assigned is [id number]. Approval Details Authorization number: [id number] Authorized from May 17, 2024 to August 08, 2024 Electronic appeal: Not supported View History Pharmacy Benefits Open Encounter MARIBELL GARZON - MEDICAID ([facility]) Covered: Retail, Mail Order Unknown: Specialty, Long-Term Care BIN: [id number] : 1965 Group ID: PCN: [id number] Legal sex: F Group name: Address: [address] [place], [place] [address] Medication Being Authorized Nizatidine (AXID) 150 mg capsule Take 1 capsule by mouth two times a day. Dispense: 60 capsule Refills: 5 Start: 05/17/2024 End: 11/13/2024 Class: Normal Diagnoses: Gastroesophageal reflux disease without esophagitis This order has been released to its destination. To be filled at: [facility] [place] [phone] [facility] [phone] [id number] Prior Authorization History for Nizatidine (AXID) [address] [facility] Miscellaneous Notes* Telephone Encounter - Jaclyn Block LPN - 05/17/2024 9:45 AM EST Images from the original note were not included. Electronic PA completed for nizatidine. This was approved. rior authorization approved Payer: [facility] Note from payer: Your PA request for [id number] was approved for 84 days. The PA# assigned is [id number]. Approval Details Authorization number: [id number] Authorized from May 17, 2024 to August 08, 2024 Electronic appeal: Not supported View History Pharmacy Benefits Open Encounter MARIBELL GARZON - MEDICAID ([facility]) Covered: Retail, Mail Order Unknown: Specialty, Long-Term Care BIN: [id number] : 1965 Group ID: PCN: [id number] Legal sex: F Group name: Address: [address] [place], [place] [address] Medication Being Authorized Nizatidine (AXID) 150 mg capsule Take 1 capsule by mouth two times a day. Dispense: 60 capsule Refills: 5 Start: 05/17/2024 End: 11/13/2024 Class: Normal Diagnoses: Gastroesophageal reflux disease without esophagitis This order has been released to its destination. To be filled at: [facility] [place] [address] [phone] [phone] [id number] Prior Authorization History for Nizatidine (AXID) 150 mg capsule documented in this encounterSt. [facility] Hospital01-22-2025 History of Present illness Narrative* Freddy Nava MD - 05/17/2024 8:20 AM EST No chief complaint on file. HPI:This visit is a virtual encounter. It required patient-provider interaction for the medical decision making as documented below. Patient has elected to have a visit through distance medicine I have communicated my name and active licensure. The patient's identity and physical location wereverified at the time of this visit. Either the patient or their legal high school admissions representative has been informed of the risks and benefits of -- and alternatives to -- treatment through a remote evaluation andconsents to proceed with the evaluation remotely. Presents for follow up from [facility] ER visit. Started not feeling well a week ago. Her hr was up and dehydrated. Covid was positive. Had labs, chest xray, cta. She wonders if she is having bile reflux. Saw Dr Martinez two or three weeks ago. Had also seen pulmonary. Scheduled for egd end of June. She is following with pulmonary for a lung nodule. Has had pet scans. She states they do not feel it is a malignancy but wonder if it is related to aspiration/reflux. We have very little records outside of scans. Will try to get records. Only meds she tolerates is axid. Has tried most ppis and h2 blockers. Her covid symptoms are stable. No fever or shortness of breath. Is off her hormones for a short while while post covid. Requests small amount of xanax to run her through. Oarrs done. Has not had any in a long time. Aware of risks. MEDICATIONS: Current Outpatient Medications Medication Sig blood sugar diagnostic (BLOOD GLUCOSE TEST) test strip Test blood sugar(s) 2 times daily. Insulin: No drospirenone, contraceptive, (SLYND) 4 mg (28) tabet Take 1/4 pill daily. Noncontraceptive purpose.Please apply company discount, process as self-pay if insurance does not cover. sucralfate (CARAFATE) 1 gram tablet Take 1 tablet by mouth before meals and at bedtime. SYNTHROID 150 mcg tablet Take 1 tablet by mouth once daily. Except 1/2 tab Sun and Sat cholecalciferol (VITAMIN D3) 1,000 unit tab tablet Take 1 tablet by mouth once daily. Nizatidine (AXID) 150 mg capsule Take 1 capsule by mouth two times a day. Lancets lancets Test blood sugar(s) 2 times [...] 2 stroke Colon Cancer Father age 64 ND Diabetes Father Type 2 Hypertension Father Coronary Artery Disease Father Hx of ND Thyroid Sister hx of parathyroid disease/ hx of fibroids other (healthy) Brother other (healthy) Brother Allergies Daughter other (healthy) Daughter other (healthy) Son other (healthy) Son other (healthy) Son other (healthy) Son Colon Cancer Paternal Aunt x5 Colon Cancer Paternal Uncle x8 Social History Tobacco Use Smoking status: Every Day Current packs/day: 1.00 Average packs/day: 1 pack/day for 20.0 years (20.0 ttl pk-yrs) Types: Cigarettes Smokeless tobacco: Never Vaping Use Vaping status: Never Used Substance Use Topics Alcohol use: No Drug use: No Reviewed current medications, allergies, past medical history, surgical history, family history andsocial history today. REVIEW OF SYSTEMS All other reviewed and negative other than HPI. HEALTH MAINTENANCE: Reviewed health maintenance issues today and recommended the following in detail. Dilated Retinal Exam Never done Lung Cancer Screening due on 04/23/2017 Influenza Vaccine(1) due on 12/26/2023 Covid-19 Vaccine(2 - season) due on 12/26/2023 Mammogram Screening due on 07/01/2024 VITALS: Could not assess Last 4 Encounter Wt Readings: Date: Wt: 11/29/2023 95.7 kg (211 lb) 11/16/2023 95.3 kg (210 lb) 10/14/2023 96.2 kg (212 lb) 09/24/2023 95.8 kg (211 lb 3.2 oz) PHYSICAL EXAMINATION: Patient is alert and oriented during visit. Answers appropriately. Breathing comfortably.. chest rise normal. No audible wheeze. No pallor. ASSESSMENT/PLAN: 1. COVID-19 - ICD9: 079.89, ICD10: U07.1 (primary diagnosis) - stable. Acute symptoms are as expected. 2. Arnold-Chiari deformity (HCC) - ICD9: 741.00, ICD10: Q07.00 - stable. 3. [id number] rapid metabolizer (HCC) - ICD9: 277.89, ICD10: E88.89 - has issues with many meds. Axid is the only med we have found that works and is tolerated for hergerd. 4. Heterozygous factor V Leiden mutation (HCC) - ICD9: 289.81, ICD10: D68.51 - stable. 5. SVT (supraventricular tachycardia) (HCC) - ICD9: 427.89, ICD10: I47.10 - stable. 6. Simple chronic bronchitis (HCC) - ICD9: 491.0, ICD10: J41.0 - stable. 7. Controlled type 2 diabetes mellitus without complication, unspecified whether fdc insulin use (HCC) - ICD9: 250.00, ICD10: E11.9 - stable. 8. Chronic fatigue syndrome with fibromyalgia - ICD9: 780.71, 729.1, ICD10: G93.32, M79.7 - stable. 9. Autonomic dysfunction - ICD9: 337.9, ICD10: G90.9 - required iv fluids in er while ill. 10. ANDRESSA (obstructive sleep apnea) - ICD9: 327.23, ICD10: G47.33 - stable. 11. Upper airway resistance syndrome - ICD9: 327.8, ICD10: G47.8 - stable. 12. Gastroesophageal reflux disease without esophagitis - ICD9: 530.81, ICD10: K21.9 - seeing gi and pulmonary. Add axid as above. - NIZATIDINE 150 MG CAPSULE 13. Anxiety - ICD9: 300.00, ICD10: F41.9 - use very short term. - ALPRAZOLAM 1 MG TABLET 14. Lung nodule - ICD9: 793.11, ICD10: R91.1 - get old records from pulmonary. Freddy Nava MD documented in this encounterSt. [facility]01-22-[address] [facility] Telephone encounter Note* Telephone Encounter - Yarelis Peñaloza LPN - 05/12/2024 12:30 PM EST Prescription Refill Information The patient has been identified by name and date of : Yes Caregiver verified no other encounters exist for this prescription request: Yes Caregiver confirmed with patient/requestor that no other refills are due, in the near future, with this provider at this time: Yes The last office visit in the department: 02/25/2024 Does the patient have a future office visit with this provider/department: Yes Requested Prescriptions Pending Prescriptions Disp Refills blood sugar diagnostic (BLOOD GLUCOSE TEST) test strip 50 Strip 11 Sig: Test blood sugar(s) 2 times daily. Insulin: No Yarelis Peñaloza LPN May 12, 2024 12:[address] [facility]01-[facility] Miscellaneous Notes* Telephone Encounter - Yarelis Peñaloza LPN - 05/12/2024 12:30 PM EST Prescription Refill Information The patient has been identified by name and date of : Yes Caregiver verified no other encounters exist for this prescription request: Yes Caregiver confirmed with patient/requestor that no other refills are due, in the near future, with this provider at this time: Yes The last office visit in the department: 02/25/2024 Does the patient have a future office visit with this provider/department: Yes Requested Prescriptions Pending Prescriptions Disp Refills blood sugar diagnostic (BLOOD GLUCOSE TEST) test strip 50 Strip 11 Sig: Test blood sugar(s) 2 times daily. Insulin: No Yarelis Peñaloza LPN May 12, 2024 12:31 PM documented in this encounterSt. [facility]01-10-2025 Evaluation note* Diagnosis Onset Date Resolution Status Admit Date Mucous cyst of digit of righ t hand resolved May 05 10:19am Abnormal chest CT acute May 09, 2024 1:23pm GERD (gastroesophageal reflu x disease) chronic May 09 1:23pm Nicotine dependence, cigarettes, uncomplicated chronic 2024 1:23pm GERD (gastroesophageal reflu x disease) chronic June 19, 2 025 6:36am Abnormal chest CT acute 2024 2:52pm Sleep apnea acute May 2:52pm GERD (gastroesophageal reflu x disease) chronic June 20, 2 025 2:52pm Nicotine dependence, cigarettes, uncomplicated chronic 2024 2:52pm H. pylori infection acute June 27, 2024 2:27pm GERD (gastroesophageal reflu x disease) chronic June 27, 2024 2:27pm Fatty liver acute July 07, 2 025 10:41am H. pylori infection acute July 07, 2024 10:41am Abnormal chest CT acute August 022024 3:06pm Sinus tachycardia acute August 022024 3:06pm [facility] Work Phone: 1(629) 152-527412-06-2024 Evaluation note* Diagnosis Onset Date Resolution Status Admit Date GERD (gastroesophageal reflu x disease) chronic March 31 12:59pm Mucous cyst of digit of righ t hand resolved May 05 10:19am Abnormal chest CT acute May 09, 2024 1:23pm GERD (gastroesophageal reflu x disease) chronic May 09 1:23pm Nicotine dependence, cigarettes, uncomplicated chronic 2024 1:23pm GERD (gastroesophageal reflu x disease) chronic June 19, 2 025 6:36am Abnormal chest CT acute 2024 2:52pm Sleep apnea acute May 2:52pm GERD (gastroesophageal reflu x disease) chronic June 20, 2 025 2:52pm Nicotine dependence, cigarettes, uncomplicated chronic Februa 2024 2:52pm H. pylori infection acute June 27, 2024 2:27pm GERD (gastroesophageal reflu x disease) chronic June 27, 2024 2:27pm Fatty liver acute July 07, 2 025 10:41am H. pylori infection acute July 07, 2024 10:41am [facility] Work Phone: 1(544) 533-926912-04-[address] [facility]12[facility] History of Present illness Narrative* Paul Duron MD - 03/29/2024 8:29 AM EST . My name and active licensure communicated. The patient's identity and physical location were verified at the time of this visit. Either the patient or their legal high school admissions representative has been informed of the risks and benefits of -- and alternatives to -- treatment through a remote evaluation and consents to proceed with the evaluation remotely. * Paul Duron MD - 03/29/2024 8:02 AM EST Virtual visit, March 29, 2024 Start review of records, labs, interim events 8:02 AM Maribell Garzon is 58 year old. Dilated Retinal Exam Never done Lung Cancer Screening due on 04/23/2017 Influenza Vaccine(1) due on 12/26/2023 Covid-19 Vaccine( - season) due on 12/26/2023 Mammogram Screening due on 07/01/2024 I have been seeing her since 11/[address] Angelo for hormonal concerns. 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 Has had hormonal sensitivities throughout her life, difficulty tolerating any hormonal regimens. Profound PMS symptoms: heart racing, dizzy, muscle tension within 12 hours prior her cycle starting. Within 2 min of bleeding the sxs would resolve, this would occur consistently. States essentially had been in a chair since age 50. Hx of ovarian cysts and likely PCOS (always felt better with high androgens), s/p left oophorectomy for benign reasons (path reviewed). LMP in 2009, age 42-43. Lab confirmed menopause-soon after gynecologic surgery. Debilitating symptoms since surgery, disabled from work, unable to drive. When in menopause many of the symptoms that she would experience premenstrually got much worse. Including arthralgias, told FM, she did notbelieve diagnosis. Anxiety was bad, tried multiple meds. Dry eyes, severe. Burning mouth (goes awaycompletely with the ET). Brain fog. Has been seeing medical providers for multiple concerns. Is hete rozygous for MTHFR mutation, never had a VTE with 6 pregnancies. Did see hematology who said can use estrogen, but prefer transdermals. She has also been dealing with hyperthyroidism.Got her COVID shot around 02/13 and multiple medical issues latter 2020 which she also feels impacted her hormones. 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 We have been trying to get her to tolerate the E2 and P individually, though understands cannot use unopposed estrogen for prolonged periods for endometrial safety. Her prior doctors were offering compounded topical [...] past has varied during our different visits). We did discuss needing to give time prior to dose adjustments. Throughout 2021 got her to tolerate a progestin first (long history of progestin intolerance), and by 03/17 Slynd 1/4 of tab daily was working well for her. For the estrogen, some of the best tolerated w 0.3 ml bid of the biest (04/16) and inc to 1/2 pill of slynd (was feeling better with this dose, driving). Based on my calculation, she was getting approximately 1.2 mg of estradiol, as well as es triol. She was happy with the half pill of the Slynd (2 mg). Since she has always been high testosterone in the past, prior to her surgery, she felt strongly that testosterone replacement will help her best-we were waiting to optimize the estrogen dosing before finalizing decision on trying additional testosterone options outside of below (more dilute dosing so that she can use more frequently (as she had the same issues with the crashing of hormone levels throughout the 24 hours if testosterone used once daily). However has noticed hair loss (prior to use of any testosterone)-discussed mayexacerbate. She has had a lot of setbacks in terms of being able to get her hormones due to cost and compounding pharmacy delays. She had updated in person visit 08/17. Was on Slynd quarter pill only through 04/17 (tolerated higher, but has been hesitant to increase). Received EstroGel from [facility] around that time. She had felt best with EstroGel 1 pump twice daily in the past. When using twice a day, the 50 g lasted a little over a month. However by the time of her 11/16 visit she was only on EstroGel 1 pump, Slynd quarter pill daily. At 11/16 follow-up she had wanted to do a trial of Testim, prescribed, but received 01/17. She strongly feels that she needs to be on EstroGel pump more than once daily. 01/17 plans were to do an estradiol level on the 1 pump daily, and then go ahead and increase to twice daily after she gives the blood work-will be helpful to correlate her absorption and how she feels with dose adjustments. She has the testim to start when feeling ready. She overall tolerates Slyndquarter and half pills, but wasn't sure if she felt a little bit more depressed when on the half pill. ........ Previously tried/offered: -Depoprovera couldn't walk. -OCPs multiple sxs of panic/heart racing rushing noises in ear (bathroom fan would sound like an airplane). -Antianxiety medications-tried multiple -Vivelle- too stimulated, even on the 25-50 mcg, q 2-3.5 days. Dose was increased to 50 which helped better with sxs, but legs would swell. Tried 4-6 wks for each. feels heart racing when the estrogen seems to be dropping. Within 2 hours of coming off the patch her HR would come down. 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 Saw cards and EP- told heart is not the problem, but a symptom of what is going on. Came off after 3 days, also felt drunk and dizzy with it. Took 1 mo for the drunken dizzy sensation to goaway. -estrogel- did ok initially, felt Better with twice a day, but at the higher dose legs would swell.3 wks between dose adjustments, she did not like the fact that her HR would go up when waiting 24 hours between doses (felt that she was metabolizing the estrogen quickly). -Divigel start with quarter or less of the packet daily, and slowly move up to the full dose as tolerated-cost prohibitive -Bi est-liked in past, she felt like it was too much. The pharmacist was managing. 3 mg E2/0.5 of E3, she didn't feel comfortable with the way the pharmacist wanted to change the dosing. She felt that it was too E2 heavy. -Biest 08/15 rxed from us, 1 Click 0.25 g (which we typically use for vaginal local low-dose therapy) of the cream and pickle sorter a 1 mL syringe, start with use of 0.1 mL at a time, which she can use twice daily or 3 times daily if even needed. tried for 2 days, because had difficulty with the syringe so she tried the full dose of the 1 click instead.- also limited insurance coverage. The heart started racing and fluctuation symptoms. Was not clear which when she tolerated the best, spoke with our compounding pharmacy. 5 mg dose, which would be dispensed in 1 mL syringes, so that she can use 0.1-0.2 mL, 2-3 times a day as tolerated. -Estratest and NET 0.[address] Trevino- kicked up GERD which she felt pushed into an asthma attack -Prometrium 100 made her feel drunk and dizzy. Tried vaginally too, but bladder spasm. Progesteronecompounded transdermally after 20 mg starts getting similar symptoms (by OSH doctor) -Estradiol p.o. 3 days into crying for no reason (although dr Trevino's notes says this was with FemHRT) -No progestin that she has been able to tolerate until the Slynd,however she does sleep better withthe Prometrium. -Mirena: daughter got hives, and it took a week for someone to remove it, nervous about anything that is not patient controlled. -Testosterone compounded 04/16, goal of 1 mg twice daily-limited by being able to get it quickly atpharmacy. INTERIM UPDATE 03/29/2024: Was sick with pneumonia since last visit. Initially thought to be a malignancy so told to come off her hormones. They were d/c 02/23. Had PET scan and no malignancy. Having a hard time with getting meds from [facility], plans on joining the HRT club. She would like to restart hormones once she gets clear from the medical team regarding no malignancy after her follow-up scans. 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 PAST HISTORY (reviewed and updated): OB History T6 L6 SAB0 IAB0 Ectopic1 Multiple0 Live Births6 Comment: menarche 12 FFTP 15 menopause age 43 ACTIVE PROBLEM LIST Postablative Hypothyroidism hx of low vitamin D Panic Disorder With Agoraphobia Chronic Fatigue Syndrome With Fibromyalgia Blood Pressure Elevated Without History of Htn Impaired Glucose Tolerance Svt (Supraventricular Tachycardia) ([facility]) Ptsd (Post-Traumatic Stress Disorder) Attention Deficit Hyperactivity Disorder (Adhd), Combined Type Recurrent Major Depressive Disorder, in Partial Remission ([facility]) menopause age 43 Tobacco Use Gerd Without Esophagitis Simple Chronic Bronchitis ([facility]) Irritable Bowel Syndrome With Diarrhea Burning Sensation of Mouth Burning Sensation of Skin Sleep Difficulties Mitral Valve Prolapse Estrogen Deficiency Adrenal Adenoma, Left Andressa (Obstructive Sleep Apnea) Nocturnal Oxygen Desaturation 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) Cyp2c9 Intermediate Metabolizer (Hcc) Dyo1c69 Rapid Metabolizer (Hcc) Ugt1a1 Intermediate Metabolizer (Hcc) Heterozygous Factor V Leiden Mutation ([facility]) Hormone Deficiency Menopausal and Perimenopausal Disorder Mood Change Diabetes Mellitus Type 2, Controlled, Without Complications (Hcc) Myalgia Autonomic Dysfunction Muscle Weakness Obesity, Class II, Bmi 35-39.9 PAST MEDICAL HISTORY Diagnosis Date Abdominal pain, [...] conflict 03/07/2013 Rectocele 05/13/2009 SVT (supraventricular tachycardia) ([facility]) Has seen cardiology at [facility], many [...] 2 stroke Colon Cancer Father age 64 [place] Diabetes Father Type 2 Hypertension Father Coronary Artery Disease Father Hx of [place] Thyroid Sister hx of parathyroid disease/ hx of fibroids other (healthy) Brother other (healthy) Brother Allergies Daughter other (healthy) Daughter other (healthy) Son other (healthy) Son other (healthy) Son other (healthy) Son Colon Cancer Paternal Aunt x5 Colon Cancer Paternal Uncle x8 Social History Tobacco Use Smoking status: Every Day Current packs/day: 1.00 Average packs/day: 1 pack/day for 20.0 years (20.0 ttl pk-yrs) Types: Cigarettes Smokeless tobacco: Never Vaping Use Vaping status: Never Used Substance Use Topics Alcohol use: No Drug use: No Social History Social History Narrative She lives in [place] [address] 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[place], 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 TESTING: Last 10 Encounter BP Readings: Date: BP: 11/29/2023 146/88 11/16/2023 130/82 10/14/2023 128/86 09/24/2023 144/99 09/13/2023 140/96 07/28/2023 151/91 07/07/2023 132/86 06/18/2023 132/82 05/31/2023 124/92 08/06/2022 142/82 Lab Results Component Value Date TSH 1.690 12/03/2023 TSH 0.928 10/15/2023 TSH 2.080 06/15/2023 TSH 0.771 05/21/2023 TSH 1.060 10/02/2022 TSH 0.61 08/03/2022 B12 509 10/15/2023 B12 506 07/16/2020 B12 483 09/06/2019 B12 576 03/22/2019 B12 683 12/01/2017 B12 622 01/27/2017 VITD25 24.8 (L) 10/15/2023 VITD25 43.6 07/09/2023 VITD25 11.3 (L) 05/21/2023 VITD25 35.8 08/01/2021 VITD25 16.2 (L) 05/26/2021 VITD25 17.2 (L) 05/20/2020 HB 15.1 03/10/2024 HB 15.2 05/21/2023 HB 15.2 10/02/2022 HB 15.6 (H) 06/17/2022 HB 15.7 (H) 05/25/2022 HB 15.6 (H) 12/31/2021 SARAY 222.0 (H) 10/15/2023 SARAY 142.0 09/06/2019 SARAY 168.8 06/23/2017 SARAY 172.8 01/27/2017 WBC 10.75 03/10/2024 WBC 10.99 05/21/2023 WBC 10.96 10/02/2022 WBC 11.46 (H) 06/17/2022 WBC 12.95 (H) 05/25/2022 WBC 10.49 12/31/2021 PLT 318 03/10/2024 PLT 268 05/21/2023 PLT 288 10/02/2022 PLT 298 06/17/2022 PLT 287 05/25/2022 PLT 314 12/31/2021 CREAT 0.73 03/07/2024 CREAT 0.78 10/26/2023 CREAT 0.80 10/15/2023 CREAT 0.74 07/09/2023 CREAT 0.76 05/21/2023 CREAT 0.78 05/25/2022 CA 9.5 03/07/2024 CA 9.3 10/26/2023 CA 9.4 07/09/2023 CA 9.1 05/21/2023 CA 9.1 05/25/2022 CA 9.9 12/31/2021 K 3.9 03/07/2024 K 4.1 10/26/2023 K 4.1 07/09/2023 K 4.1 05/21/2023 K 3.9 05/25/2022 K 4.7 12/31/2021 MG 2.0 07/09/2023 MG 1.8 04/24/2021 MG 1.9 05/20/2020 MG 2.1 12/19/2018 MG 2.0 03/09/2018 MG 2.2 11/10/2017 NA 138 03/07/2024 NA 139 10/26/2023 NA 137 07/09/2023 NA 136 05/21/2023 NA 137 05/25/2022 NA 139 12/31/2021 AST 31 07/09/2023 AST 45 (H) 06/15/2023 AST 41 (H) 05/21/2023 AST 22 05/25/2022 AST 26 12/31/2021 AST 22 04/24/2021 ALT 58 (H) 07/09/2023 ALT 75 (H) 06/15/2023 ALT 63 (H) 05/21/2023 ALT 33 05/25/2022 ALT 41 (H) 12/31/2021 ALT 35 04/24/2021 HBA1C 6.4 (H) 03/07/2024 HBA1C 6.3 (H) 10/15/2023 HBA1C 6.3 (H) 05/21/2023 HBA1C 6.1 (H) 05/25/2022 HBA1C 5.9 (H) 12/31/2021 HBA1C 6.0 (H) 05/09/2021 GLUC 91 03/07/2024 GLUC 169 (H) 10/26/2023 GLUC 145 (H) 07/09/2023 GLUC 107 (H) 05/21/2023 GLUC 143 (H) 05/25/2022 GLUC 81 12/31/2021 LDL 91 10/15/2023 LDL 68 12/04/2019 LDL 81 12/10/2017 LDL 77 11/09/2016 LDL 69 10/21/2011 TG 96 10/15/2023 TG 102 12/04/2019 TG 67 12/10/2017 TG 49 11/09/2016 HDL 40 10/15/2023 HDL 37 (L) 12/04/2019 HDL 34 (L) [...] 06/15/2019 PROG 0.2 01/25/2017 PROG 0.3 08/03/2014 BZNFN50X <25 05/20/2020 GLOKZ67B <25 12/04/2019 OXRID39H <25 09/06/2019 IICYJ77M <25 08/16/2019 OTLGG58W 46 07/21/2019 JISNR13V <25 06/15/2019 SHBG 86 02/02/2023 SHBG 10/06/2011 57 Unit: nmol/L (NOTE) -- REFERENCE VALUE -- 18-144 (non-) Test performed by: [facility], [place], [place], unless otherwise specified above. TESTT 23 02/02/2023 TESTFREE 2.1 02/02/2023 TESTFREE 0.34 05/20/2020 TESTFREE 0.22 12/04/2019 TESTFREE 0.25 09/06/2019 TESTFREE 0.22 08/16/2019 TESTFREE 0.42 06/15/2019 DHEAS 22.7 (L) 06/15/2019 DHEAS 25.7 (L) 12/12/2018 DHEAS 30.8 (L) 01/03/2018 DHEAS 37.4 12/10/2017 DHEAS 32.1 (L) 09/08/2017 DHEAS 21.8 (L) 11/21/2016 PROL 11.0 11/21/2016 PROL 4.8 01/14/2012 PROL 4.1 10/05/2006 Testosterone Date Value Ref Range Status 05/20/2020 31 8 - 60 ng/dL Final Comment: (NOTE) ADDITIONAL INFORMATION Testing performed by Liquid Chromatography-Tandem Mass Spectrometry (LC-MS/MS). This test was developed and its performance characteristics determined by [facility] in a manner consistent with CLIA requirements. This test has not been cleared or approved by the U.S. Food and Drug Administration. 12/04/2019 20 8 - 60 ng/dL Final Comment: (NOTE) ADDITIONAL INFORMATION Testing performed by Liquid Chromatography-Tandem Mass Spectrometry (LC-MS/MS). This test was developed and its performance characteristics determined by [facility] in a manner consistent with CLIA requirements. This test has not been cleared or approved by the U.S. Food and Drug Administration. 09/06/2019 23 8 - 60 ng/dL Final Comment: (NOTE) ADDITIONAL INFORMATION Testing performed by Liquid Chromatography-Tandem Mass Spectrometry (LC-MS/MS). This test was developed and its performance characteristics determined by [facility] in a manner consistent with CLIA requirements. This test has not been cleared or approved by the U.S. Food and Drug Administration. 08/16/2019 22 8 - 60 ng/dL Final Comment: (NOTE) ADDITIONAL INFORMATION Testing performed by Liquid Chromatography-Tandem Mass Spectrometry (LC-MS/MS). This test was developed and its performance characteristics determined by [facility] in a manner consistent with CLIA requirements. This test has not been cleared or approved by the U.S. Food and Drug Administration. 06/15/2019 30 8 - 60 ng/dL Final Comment: (NOTE) ADDITIONAL INFORMATION Testing performed by Liquid Chromatography-Tandem Mass Spectrometry (LC-MS/MS). This test was developed and its performance characteristics determined by [facility] in a manner consistent with CLIA requirements. This test has not been cleared or approved by the U.S. Food and Drug Administration. 12/12/2018 See Comment <40 ng/dL Final Comment: The total testosterone result is 20 ng/dL, the reference range of [facility] is 8 to 60 ng/dL. Disregard [facility] reference range. Interpret the result using the reference range provided by the performing laboratory. Results should not be compared to previously reported results using [facility]'s assay due to differences in methodology. Test performed by: [facility] [address], [place], [place] Testing performed by Liquid Chromatography Tandem Mass Spectrometry. 07/27/2018 30 <40 ng/dL Final 05/17/2018 19 <40 ng/dL Final 01/03/2018 29 <40 ng/dL Final 09/08/2017 39 <40 ng/dL Final Last Bone Density No resulted procedures found. Last Screening Mammogram [facility] SCREENING Exam End: 07/01/2022 2:50 PM (Final result) Narrative: * * *Final Report* * * DATE OF EXAM: Jul 01 2022 2:50PM KRISTINA Rivera81 - [facility] SCREENING / PROCEDURE REASON: Encounter for screening mammogram for breast cancer * * * * Physician Interpretation * * * * RESULT: #[id number] - [facility] SCREENING BILATERAL DIGITAL SCREENING MAMMOGRAM WITH CAD: 07/01/2022 HISTORY: Encounter For Screening Mammogram For Breast Cancer. RESULT: TECHNIQUE: The study was acquired using full field digital technology and interpreted from soft copy. Current study was also evaluated with a Computer Aided Detection (CAD). Comparison is made to exams dated: 06/16/2019 mammogram and 12/24/2015 mammogram - [facility]. There are scattered fibroglandular elements in both breasts. No significant masses, calcifications, or other findings are seen in either breast. There has been no significant interval change. Impression: IMPRESSION: NEGATIVE There is no mammographic evidence of malignancy. A 1 year screening mammogram is recommended. The exam was reviewed by a staff physician. Ruslan Townsend Handwork Good. jolene,michael/mahamed:07/01/2022 15:25:18 Svp Of Digital(s): RT Hudson(R)(M), [facility] letter sent: Normal over 40 Mammogram BI-RADS: [...] Health, Family Medicine, and Medical/Surgical Oncology, the [facility] has carefully reviewed the data and [...] their providers when to stop screening mammograms. Lap Winding Machine Operator: Mahamed Transcribe Date/Time: Jul 01 2022 1:57P Dictated by: HAZEL PEREZ MD This examination was interpreted and the [...] Physician Interpretation * * * * RESULT: #[id number] - BELKIS DIG DIAG CAD MARIA A BILATERAL DIGITAL DIAGNOSTIC MAMMOGRAM WITH CAD: 12/24/2015 HISTORY: Mastodynia Bilateral/Palpable lump left axilla /Priors available for comparison. RESULT: TECHNIQUE: The study was acquired using full field digital technology and interpreted from soft copy. Current study was also evaluated with a Computer Aided Detection (CAD). Comparison is made to exam dated: 06/07/2013 mammogram - [facility]. There are scattered fibroglandular elements in both breasts. There are benign lymph nodes in both breasts. No significant masses, calcifications, or other findings are seen in either breast. BENIGN There is no mammographic evidence of malignancy. #[id number] - US BREAST INCL AXILLA LTD ULTRASOUND OF LEFT BREAST: 12/24/2015 RESULT: Comparison is made to exam dated: 06/07/2013 mammogram - [facility]. Ultrasound of the left breast was performed. [...] identified. No interval change. Sanjay camacho/mahamed:12/24/2015 10:46:16 Svp Of Digital: Aline CISNEROS)(Anushka), [facility] letter sent: Normal clinical eval OVERALL STUDY BIRADS: 2 Benign Lap Winding Machine Operator: Mahamed Transcribe Date/Time: Dec 24 2015 9:34A Dictated by: SANJAY BROWN DO This examination was interpreted and the report reviewed and electronically signed by: SANJAY BROWN DO on Dec 24 2015 10:46AM EST Last Breast Ultrasound US BREAST MARIA A Collected: 12/24/2015 10:24 AM (Final result) Narrative: * * *Final Report* * * DATE OF EXAM: Dec 24 2015 10:24AM U [id number] - US BREAST INCL AXILLA LTD - LEFT / PROCEDURE REASON: Mastodynia * * * * Physician Interpretation * * * * RESULT: #[id number] - BELKIS DIG DIAG CAD MARIA A BILATERAL DIGITAL DIAGNOSTIC MAMMOGRAM WITH CAD: 12/24/2015 HISTORY: Mastodynia Bilateral/Palpable lump left axilla /Priors available for comparison. RESULT: TECHNIQUE: The study was acquired using full field digital technology and interpreted from soft copy. Current study was also evaluated with a Computer Aided Detection (CAD). Comparison is made to exam dated: 06/07/2013 mammogram - [facility]. There are scattered fibroglandular elements in both breasts. There are benign lymph nodes in both breasts. No significant masses, calcifications, or other findings are seen in either breast. BENIGN There is no mammographic evidence of malignancy. #[id number] - US BREAST INCL AXILLA LTD ULTRASOUND OF LEFT BREAST: 12/24/2015 RESULT: Comparison is made to exam dated: 06/07/2013 mammogram - [facility]. Ultrasound of the left breast was performed. [...] identified. No interval change. Sanjay camacho/mahamed:12/24/2015 10:46:16 Svp Of Digital: Aline TAYLOR (R)(Anushka), [facility] letter sent: Normal clinical eval OVERALL STUDY BIRADS: 2 Benign Lap Winding Machine Operator: Mahamed Transcribe Date/Time: Dec 24 2015 9:34A Dictated by : SANJAY BROWN DO This examination was interpreted and the report reviewed and electronically signed by: SANJAY BROWN DO on Dec 24 2015 10:46AM EST PLAN: The following diagnoses were relevant to this visit: (N95.1) Symptomatic menopausal or female climacteric states (primary encounter diagnosis) (G90.9) Autonomic dysfunction (D68.51) Heterozygous factor V Leiden mutation (HCC) (E34.9) Hormonal disorder Once medically cleared post pneumonia scans, she will start back on Slynd quarter pill, EstroGel 1 pump, and return for labs at least 12 hours after her EstroGel application for a blood test. She canstart the Testim soon after she starts the estrogen. Blood work for estradiol and testosterone levels ordered for 4-6 weeks after starting medication. See back in 3 months. Discussed eventually will likely need half pill of the Slynd if using EstroGel twice daily in the future. Would recommend setting up every 3-month appointments with me over the course of this year. [facility] on 03/29/24 TESTOSTERONE, BIOAVAILABLE AND TOTAL BY MS (ADULT FEMALES, CHILDREN, OR INDIVIDUALS ON TESTOSTERONE-SUPPRESSING THERAPY) ESTRADIOL BY TANDEM MASS SPECTROMETRY Paul Duron MD Call if any discussed symptoms not better or worse. Note dictated using voice recognition software. [facility] in [facility] [facility] Tele[facility] encounter Note* Telephone Encounter - Sudha Pink LPN - 03/16/2024 10:42 AM EST She is scheduled to see [facility] in [place]. Has discussed with Dr Nava about what she plans to do. [facility]11-21-2024 Miscellaneous Notes* Telephone Encounter - Sudha Pink LPN - 03/16/2024 10:42 AM EST She is scheduled to see pul in [place]. Has discussed with Dr Nava about what she plans to do. * Telephone Encounter - Yarelis Adkins APRN.CNP - 03/16/2024 7:32 AM EST Please check with the patient to see that she is following up with oncology through [place]? The PET scan showed her lung mass but no other hypermetabolic areas. I did not see a response back that she does have a oncology appointment scheduled. documented in this encounterSt[facility]11-[facility]-2024 Telephone encounter Note * Telephone Encounter - Yarelis Adkins APRN.CNP - 03/16/2024 7:32 AM EST Please check with the patient to see that she is following up with oncology through [place]? The PET scan showed her lung mass but no other hypermetabolic areas. I did not see a response back that she does have a oncology appointment scheduled. [facility]11-19-2024 Telephone encounter Note* Telephone Encounter - Renee Prado MA - 03/14/2024 4:42 PM EST Notified via Reddit. Renee Prado MA [facility]11-19-2024 Miscellaneous Notes* Telephone Encounter - Renee Prado MA - 03/14/2024 4:42 PM EST Notified via Reddit. Renee Prado MA * Telephone Encounter - Yarelis Adkins APRN.CNP - 03/14/2024 2:58 PM EST [place], PET scan showed good results. The only area seen with increased uptake is the one area of your lung. I tried to call you but no answer or way to leave message. 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 Please keep us posted. documented in this encounterSt. [facility]11-[facility]-2024 Telephone encounter Note * Telephone Encounter - Yarelis Adkins APRN.CNP - 03/14/2024 2:58 PM EST [place], PET scan showed good results. The only area seen with increased uptake is the one area of your lung. I tried to call you but no answer or way to leave message. 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 Please keep us posted. [facility] Telephone encounter Note* Telephone Encounter - Mar Pinon MA - 03/14/2024 2:37 PM EST Office just received outside PET results from [facility]. View External Imaging - PET [ID [id number]] Mar Pinon MA [facility]11-19-2024 Miscellaneous Notes* Telephone Encounter - Mar Pinon MA - 03/14/2024 2:37 PM EST Office just received outside PET results from [facility]. View External Imaging - PET [ID [id number]] Mar Pinon MA documented in this encounterSt. [facility]11-19-2024 Evaluation note* Diagnosis Onset Date Resolution Status Admit Date Abnormal chest CT acute Novembe r 2023 10:52am GERD (gastroesophageal reflu x disease) chronic March 14, 2 024 10:52am Nicotine dependence, cigarettes, uncomplicated chronic Novemb er 2023 10:52am GERD (gastroesophageal reflu x disease) chronic March 31 12:59pm Mucous cyst of digit of righ t hand resolved May 05 10:19am Abnormal chest CT acute May 09, 2024 1:23pm GERD (gastroesophageal reflu x disease) chronic May 09 1:23pm Nicotine dependence, cigarettes, uncomplicated chronic 2024 1:23pm GERD (gastroesophageal reflu x disease) chronic June 19, 2 025 6:36am Abnormal chest CT acute 2024 2:52pm Sleep apnea acute May 2:52pm GERD (gastroesophageal reflu x disease) chronic June 20, 025 2:52pm Nicotine dependence, cigarettes, uncomplicated chronic 2024 2:52pm H. pylori infection acute June 27, 2024 2:27pm GERD (gastroesophageal reflu x disease) chronic June 27, 2024 2:27pm [facility] Work Phone: 1(441) 891-770811-19-2024 Evaluation note* Diagnosis Onset Date Resolution Status Admit Date Abnormal chest CT acute Novembe r 2023 10:52am GERD (gastroesophageal reflu x disease) chronic March 14, 2 024 10:52am Nicotine dependence, cigarettes, uncomplicated chronic Novemb er 2023 10:52am GERD (gastroesophageal reflu x disease) chronic March 31 12:59pm Mucous cyst of digit of righ t hand resolved May 05 10:19am Abnormal chest CT acute May 09, 2024 1:23pm GERD (gastroesophageal reflu x disease) chronic May 09 1:23pm Nicotine dependence, cigarettes, uncomplicated chronic 2024 1:23pm GERD (gastroesophageal reflu x disease) chronic June 19, 2 025 6:36am Abnormal chest CT acute , 2025 2:52pm Sleep apnea acute May 2:52pm GERD (gastroesophageal reflu x disease) chronic June 20, 2 025 2:52pm Nicotine dependence, cigarettes, uncomplicated chronic Februa 2024 2:52pm H. pylori infection acute June 27, 2024 2:27pm GERD (gastroesophageal reflu x disease) chronic June 27, 2024 2:27pm Fatty liver acute July 07, 2 025 10:41am H. pylori infection acute July 07, 2024 10:41am [facility] Work Phone: 1(766) 214-434811-15-2024 History of Present illness Narrative* Freddy Nava MD - 03/10/2024 9:20 AM EST Patient presents with: Acute Visit HPI:This visit is a virtual encounter. It required patient-provider interaction for the medical decision making as documented below. Patient has elected to have a visit through distance medicine I have communicated my name and active licensure. The patient's identity and physical location wereverified at the time of this visit. Either the patient or their legal high school admissions representative has been informed of the risks and benefits of -- and alternatives to -- treatment through a remote evaluation andconsents to proceed with the evaluation remotely. Has pain in the center of her upper back. Can wake her up from sleep. She has noted coffee making it worse. No rash. Cough is stable. No fever or chills. Pulse ox has been ok. No shortness of breath. Touching her muscles makes it worse. She refuses to go to the er. Red flags for re-assessment reviewed with patient in detail. Aware of risks of not being evaulated. No chest pain with exertion. No edema. She requests carafate. Has had headaches when we used it the past but helped with refluex Has over the axid Note was copied and pasted, without alteration from: my office visit yesterday: Seen recently at [facility] er. All of her family had been ill Diagnosed on ct as possible pneumonia vs chest mass. Note was copied and pasted, without alteration from: [facility] Adkins's note: Abnormal CT of chest. Referral made to pulmonology in [place]. Palpitations are better Feels infection in chest is improving. Not too SOB now. Coughing, no wheeze Some productivity. Mostly nasal congestion Reflux is terrible Generalized weakness. Some body aches. Review of hospital findings indicated a chest xray that showed ? Left sided atelectasis or edema. [place] count [place] [address] with left shift. CTA shgowed a 2.9 X 3.0 cm RUL mass with consolidation. Radiology was concerned about malignancy although they covered her with levaquin, She has an appt next week with pulmonary in [place]. She had a pet scan that showed.still the area in question in RUL but decreased in size to 1.39 X 1.7 cm . She still has some cough and congtestion. No fever or chills. No hemoptysis. She wonders it it represents pneumonia and not mass. She states she is unlikely to agree to a bronch if they recommend it. Will update me on progress. Latest Ref Rng 03/07/2024 Glucose 74 - 99 mg/dL 91 BUN 7 - 21 mg/dL 11 Creatinine 0.58 - 0.96 mg/dL 0.73 Sodium 136 - 144 mmol/L 138 Potassium 3.7 - 5.1 mmol/L 3.9 Chloride 98 - 107 mmol/L 102 CO2 22 - 30 mmol/L 23 Anion Gap 8 - 15 mmol/L 13 Calcium 8.5 - 10.2 mg/dL 9.5 eGFR >=60 mL/min/1.73m 95 Iron 41 - 186 ug/dL 66 TIBC 232 - 386 ug/dL 421 (H) Transferrin Saturation 15.0 - 57.0 % 15.7 Hemoglobin A1C 4.3 - 5.6 % 6.4 (H) Estimated Average Glucose mg/dL 137 Zinc 60 - 120 ug/dL 57 (L) Copper 80 - 155 ug/dL 133 Manganese, Blood 4.4 - 15.2 ug/L 8.8 Chromium <0.6 ug/L <0.5 Legend: (H) High (L) Low MEDICATIONS: Current Outpatient Medications Medication Sig levoFLOXacin (LEVAQUIN) 500 mg tablet Take 1 tablet by mouth once daily for 5 days. SYNTHROID 150 mcg tablet Take 1 tablet by mouth once daily. Except 1/2 tab Sun and Sat cholecalciferol (VITAMIN D3) 1,000 unit tab tablet Take 1 tablet by mouth once daily. Nizatidine (AXID) 150 mg capsule Take 1 capsule by mouth two times a day. Lancets lancets Test blood sugar(s) 2 times [...] 2 stroke Colon Cancer Father age 64 [place] Diabetes Father Type 2 Hypertension Father Coronary Artery Disease Father Hx of [place] Thyroid Sister hx of parathyroid disease/ hx of fibroids other (healthy) Brother other (healthy) Brother Allergies Daughter other (healthy) Daughter other (healthy) Son other (healthy) Son other (healthy) Son other (healthy) Son Colon Cancer Paternal Aunt x5 Colon Cancer Paternal Uncle x8 Social History Tobacco Use Smoking status: Every Day Current packs/day: 1.00 Average packs/day: 1 pack/day for 20.0 years (20.0 ttl pk-yrs) Types: Cigarettes Smokeless tobacco: Never Vaping Use Vaping status: Never Used Substance Use Topics Alcohol use: No Drug use: No Reviewed current medications, allergies, past medical history, surgical history, family history andsocial history today. REVIEW OF SYSTEMS All other reviewed and negative other than HPI. HEALTH MAINTENANCE: Reviewed health maintenance issues today and recommended the following in detail. Dilated Retinal Exam Never done Lung Cancer Screening due on 04/23/2017 Influenza Vaccine(1) due on 12/26/2023 Covid-19 Vaccine(2 - 2023- season) due on 12/26/2023 Mammogram Screening due on 07/01/2024 VITALS: Could not assess Last 4 Encounter Wt Readings: Date: Wt: 11/29/2023 95.7 kg (211 lb) 11/16/2023 95.3 kg (210 lb) 10/14/2023 96.2 kg (212 lb) 09/24/2023 95.8 kg (211 lb 3.2 oz) PHYSICAL EXAMINATION: Patient is alert and oriented during visit. Answers appropriately. Breathing comfortably.. chest rise normal. No audible wheeze. No pallor. ASSESSMENT/PLAN: 1. Gastroesophageal reflux disease without esophagitis - ICD9: 530.81, ICD10: K21.9 (primary diagnosis) - Discussed risks and benefits of new medication with the patient. Advised them to call if any sideeffects or questions. Follow up after pulm appt - SUCRALFATE 1 GRAM TABLET 2. Chest wall pain - ICD9: 786.52, ICD10: R07.89 - declines er. Red flags for re-assessment reviewed with patient in detail. 3. Bacterial pneumonia - ICD9: 482.9, ICD10: J15.9 On levaquin. 4. Lung mass - ICD9: 786.6, ICD10: R91.8 - see pulmonary. 5. Abnormal CT scan of lung - ICD9: 793.19, ICD10: R91.8 - as above, Freddy Nava MD documented in this encounterSt. [facility] [facility] [facility] History of Present illness Narrative* Freddy Nava MD - 03/09/2024 11:27 AM EST Patient presents with: Acute Visit HPI:This visit is a virtual encounter. It required patient-provider interaction for the medical decision making as documented below. Patient has elected to have a visit through distance medicine I have communicated my name and active licensure. The patient's identity and physical location wereverified at the time of this visit. Either the patient or their legal high school admissions representative has been informed of the risks and benefits of -- and alternatives to -- treatment through a remote evaluation andconsents to proceed with the evaluation remotely. Seen recently at [facility] er. All of her family had been ill Diagnosed on ct as possible pneumonia vs chest mass. Note was copied and pasted, without alteration from: Mague Adkins's note: Abnormal CT of chest. Referral made to pulmonology in [place]. Palpitations are better Feels infection in chest is improving. Not too SOB now. Coughing, no wheeze Some productivity. Mostly nasal congestion Reflux is terrible Generalized weakness. Some body aches. Review of hospital findings indicated a chest xray that showed ? Left sided atelectasis or [place] [address] with left shift. CTA shgowed a 2.9 X 3.0 cm RUL mass with consolidation. Radiology was concerned about malignancy although they covered her with levaquin, She has an appt next week with pulmonary in [place]. She had a pet scan that showed.still the area in question in RUL but decreased in size to 1.39 X 1.7 cm . She still has some cough and congtestion. No fever or chills. No hemoptysis. She wonders it it represents pneumonia and not mass. She states she is unlikely to agree to a bronch if they recommend it. Will update me on progress. Latest Ref Rn 03/07/2024 Glucose 74 - 99 mg/dL 91 BUN 7 - 21 mg/dL 11 Creatinine 0.58 - 0.96 mg/dL 0.73 Sodium 136 - 144 mmol/L 138 Potassium 3.7 - 5.1 mmol/L 3.9 Chloride 98 - 107 mmol/L 102 CO2 22 - 30 mmol/L 23 Anion Gap 8 - 15 mmol/L 13 Calcium 8.5 - 10.2 mg/dL 9.5 eGFR >=60 mL/min/1.73m 95 Iron 41 - 186 ug/dL 66 TIBC 232 - 386 ug/dL 421 (H) Transferrin Saturation 15.0 - 57.0 % 15.7 Hemoglobin A1C 4.3 - 5.6 % 6.4 (H) Estimated Average Glucose mg/dL 137 Zinc 60 - 120 ug/dL 57 (L) Copper 80 - 155 ug/dL 133 Manganese, Blood 4.4 - 15.2 ug/L 8.8 Chromium <0.6 ug/L <0.5 Legend: (H) High (L) Low MEDICATIONS: Current Outpatient Medications Medication Sig SYNTHROID 150 mcg tablet Take 1 tablet by mouth once daily. Except 1/2 tab Sun and Sat cholecalciferol (VITAMIN D3) 1,000 unit tab tablet Take 1 tablet by mouth once daily. Nizatidine (AXID) 150 mg capsule Take 1 capsule by mouth two times a day. Lancets lancets Test blood sugar(s) 2 times [...] conflict 03/07/2013 Rectocele 05/13/2009 SVT (supraventricular tachycardia) ([facility]) Has seen cardiology at [facility], many [...] 2 stroke Colon Cancer Father age 64 [place] Diabetes Father Type 2 Hypertension Father Coronary Artery Disease Father Hx of [place] Thyroid Sister hx of parathyroid disease/ hx of fibroids other (healthy) Brother other (healthy) Brother Allergies Daughter other (healthy) Daughter other (healthy) Son other (healthy) Son other (healthy) Son other (healthy) Son Colon Cancer Paternal Aunt x5 Colon Cancer Paternal Uncle x8 Social History Tobacco Use Smoking status: Every Day Current packs/day: 1.00 Average packs/day: 1 pack/day for 20.0 years (20.0 ttl pk-yrs) Types: Cigarettes Smokeless tobacco: Never Vaping Use Vaping status: Never Used Substance Use Topics Alcohol use: No Drug use: No Reviewed current medications, allergies, past medical history, surgical history, family history andsocial history today. REVIEW OF SYSTEMS All other reviewed and negative other than HPI. VITALS: Could not assess Last 4 Encounter Wt Readings: Date: Wt: 11/29/2023 95.7 kg (211 lb) 11/16/2023 95.3 kg (210 lb) 10/14/2023 96.2 kg (212 lb) 09/24/2023 95.8 kg (211 lb 3.2 oz) PHYSICAL EXAMINATION: Patient is alert and oriented during visit. Answers appropriately. Breathing comfortably.. chest rise normal. No audible wheeze. No pallor. ASSESSMENT/PLAN: 1. Bacterial pneumonia - ICD9: 482.9, ICD10: J15.9 (primary diagnosis) - additional 5 days of meds. Red flags for re-assessment reviewed with patient in detail. Check cbc next week. - see- - LEVOFLOXACIN 500 MG TABLET - COMPLETE BLOOD COUNT AND DIFFERENTIAL 2. Lung mass - ICD9: 786.6, ICD10: R91.8 - see puimonary and notify me of their recommendations next week. Red flags for re-assessment reviewed with patient in detail. - LEVOFLOXACIN 500 MG TABLET - COMPLETE BLOOD COUNT AND DIFFERENTIAL Freddy Nava MD documented in this encounterSt. [facility] Hospital11-14-2024 NoteHNO ID: [id number] Author: FREDDY NAVA MD Service: ? Author Type: Physician Type: Progress Notes Filed: 03/09/2024 10:55 Note Text: Patient did not check in on line. I attempted to call. Her mail box is full and could not leave a message.[facility]-14-[facility] History of Present illness Narrative* Freddy Nava MD - 03/09/2024 10:54 AM EST Patient did not check in on line. I attempted to call. Her mail box is full and could not leave a message. documented in this encounterSt. [facility] Hospital11-06-2024 Telephone encounter Note * Telephone Encounter - Katlyn Mills LPN - 03/01/2024 3:18 PM EST Lindsey calling back from [employer], stating she received info for pet scan however she needs the scan that shows pt has a lung mass on CT. CT was done at [facility] ER. Report faxed to [phone].Katlyn Mills LPN [facility]24 Miscellaneous Notes* Telephone Encounter - Katlyn Mills LPN - 03/01/2024 3:18 PM EST Lindsey calling back from [employer], stating she received info for pet scan however she needs the scan that shows pt has a lung mass on CT. CT was done at [facility] ER. Report faxed to [phone].Katlyn Mills LPN * Telephone Encounter - Anushka Jalloh RN - 03/01/2024 2:31 PM EST Faxed recent ov notes, demographics, imaging results, PET Scan order, to [facility], per Linda request. Reports they do the PET scans for [facility]. documented in this encounterSt. [facility] Hospital11-06-2024 Telephone encounter Note * Telephone Encounter - Anushka Jalloh RN - 03/01/2024 2:31 PM EST Faxed recent ov notes, demographics, imaging results, PET Scan order, to [facility], per Linda request. Reports they do the PET scans for [facility]. [facility] Telephone encounter Note* Telephone Encounter - Sudha Rangel MA - 02/25/2024 11:36 AM EDT Consult faxed to number requested. Sudha Rangel MA [facility]-01-2024 Miscellaneous Notes* Telephone Encounter - Sudha Rangel MA - 02/25/2024 11:36 AM EDT Consult faxed to number requested. Sudha Rangel MA documented in this encounterSt. Elizabeth Hospital11-01-2024 Instructions* Patient Instructions* Yarelis Adkins APRN.CNP - 02/25/2024 10:56 AM EDT 1) Please fax PET scan order to [facility]- ordered STAT 2) Schedule back in 3 months to follow along documented in this encounterSt. Elizabeth Hospital11-01-[address] [facility]-20[facility] History of Present illness Narrative* Yarelis Adkins APRN.CNP - 02/25/2024 10:49 AM EDT VIRTUAL VISIT PROGRESS NOTE This is a virtual visit using Nipendoom Video Visit. It required patient- provider interaction for the medical decision making as documented below. I have communicated my name and active licensure. The patient's identity and physical location wereverified at the time of this visit. Either the patient or their legal high school admissions representative has been informed of the risks and benefits of -- and alternatives to -- treatment through a remote evaluation andconsents to proceed with the evaluation remotely. Maribell Garzon is a 58 year old female seen for pulmonary neoplasm. HISTORY REVIEWED (electronic chart updated): PAST MEDICAL HISTORY Diagnosis Date Abdominal pain, [...] 2 stroke Colon Cancer Father age 64 ND Diabetes Father Type 2 Hypertension Father Coronary Artery Disease Father Hx of [place] Thyroid Sister hx of parathyroid disease/ hx of fibroids other (healthy) Brother other (healthy) Brother Allergies Daughter other (healthy) Daughter other (healthy) Son other (healthy) Son other (healthy) Son other (healthy) Son Colon Cancer Paternal Aunt x5 Colon Cancer Paternal Uncle x8 Social History Tobacco Use Smoking status: Every Day Current packs/day: 1.00 Average packs/day: 1 pack/day for 20.0 years (20.0 ttl pk-yrs) Types: Cigarettes Smokeless tobacco: Never Vaping Use Vaping status: Never Used Substance Use Topics Alcohol use: No Drug use: No Current Outpatient Medications Medication Sig SYNTHROID 150 mcg tablet Take 1 tablet by mouth once daily. Except 1/2 tab Sun and Sat drospirenone, contraceptive, (SLYND) 4 mg (28) tabet Take 1/4 pill daily. Noncontraceptive purpose.Please apply company discount, process as self-pay if insurance does not cover. testosterone (TESTIM) 50 mg/5 g (1%) gel Dispense 30 tubes (not packets). Put 1 tube in a 5 cc syringe and use half cc a day (5mg daily). Apply to vulva. 1 tube should last 10 days. cholecalciferol (VITAMIN D3) 1,000 unit tab tablet Take 1 tablet by mouth once daily. Estradiol (ESTROGEL) 1.25 gram/actuation glpm 1 application as directed. 1 PUMP TWICE DAILY. APPLY THIN LAYER TO ARM FROM WRIST TO SHOULDER. 1 yr of refills Nizatidine (AXID) 150 mg capsule Take 1 capsule by mouth two times a day. Lancets lancets Test blood sugar(s) 2 times daily. Insulin: No blood sugar diagnostic (BLOOD GLUCOSE TEST) test strip Test blood sugar(s) 2 times daily. Insulin: No testosterone in versabase topical cream 1% (CPD) Apply 0.1ml to vulva twice daily albuterol HFA (PROVENTIL HFA) 90 mcg/actuation inhaler [...] No current facility-administered medications for this visit. ALLERGIES Allergen Reactions Codeine GI Upset, Vomiting Percocet [Oxycodone* Vomiting Solumedrol [Methylp* Mental Status Change Made her rageful Vicodin [Hydrocodon* Vomiting Metformin Other: See Comments Myalgias. Norethindrone GI Upset myalgias, lip/mouth burn, SOB, nausea, dizziness Pepcid [Famotidine * Other: See Comments Dry eyes, mouth, rash, itching, anxiety Tapazole [[place]imazo* Hives REVIEW OF SYSTEMS: Abnormal CT of chest. Referral made to pulmonology in [place]. Palpitations are better Feels infection in chest is improving. Not too SOB now. Coughing, no wheeze Some productivity. Mostly nasal congestion Reflux is terrible Generalized weakness. Some body aches. PHYSICAL EXAMINATION: VIDEO EXAM: (if completed, performed via video enabled technology) GENERAL: alert and appropriate, in no distress, appears tired, and appears anxious ASSESSMENT: (R91.8) Abnormal CT scan of lung (primary encounter diagnosis) (D49.1) Neoplasm of lung PLAN: ASSESSMENT/PLAN: 1. Abnormal CT scan of lung - ICD9: 793.19, ICD10: R91.8 (primary diagnosis) Order PET scan Referral sent to [place] [facility] - Sent CT scan from [facility] to [place] [facility] - Will get PET scan 2. Neoplasm of lung - ICD9: 239.1, ICD10: D49.1 Ordered PET scan for [facility] - [place] PET/CT SKULL-THIGH INITIAL Yarelis Adkins APRN.CNP There are no Patient Instructions on file for this visit. I spent a total of 12 minutes on the date of the service which included preparing to see the patient, [id number] patient care, completing clinical documentation, obtaining and/or reviewing separately obtained history, performing a medically appropriate examination, and counseling and educating the patient/family/caregiver Yarelis Adkins APRN.CNP documented in this encounterSt. [facility] Hospital10-31-2024 Telephone encounter Note * Telephone Encounter - Yarelis Adkins APRN.CNP - 02/24/2024 12:31 PM EDT Please let pt. Know that consult was placed and we need to fax referral [facility] Miscellaneous Notes* Telephone Encounter - Yarelis Adkins APRN.CNP - 02/24/2024 12:31 PM EDT Please let pt. Know that consult was placed and we need to fax referral * Telephone Encounter - Maribell Garcia MA - 02/24/2024 11:35 AM EDT ER report scanned with report listed. documented in this encounterSt. Elizabeth Hospital10-31-2024 Telephone encounter Note * Telephone Encounter - Maribell Garcia MA - 02/24/2024 11:35 AM EDT ER report scanned with report listed. [facility] History of Present illness Narrative* Freddy Nava MD - 02/10/2024 11:00 AM EDT Patient presents with: Acute Visit HPI:This visit is a virtual encounter. It required patient-provider interaction for the medical decision making as documented below. Patient has elected to have a visit through distance medicine I have communicated my name and active licensure. The patient's identity and physical location wereverified at the time of this visit. Either the patient or their legal high school admissions representative has been informed of the risks and benefits of -- and alternatives to -- treatment through a remote evaluation andconsents to proceed with the evaluation remotely. She has an issue with her well water. Water is in a salt table. Her sodium has always been in a high level. She has a well that is uncapped behind her. Health department is involved. She has not drank her water or bathed in it. They are running tests on the water. Was very thirsty. Skin gets red at times. They are capping the well and cleaning up the area. She would like tested for common contaminants. MEDICATIONS: Current Outpatient Medications Medication Sig SYNTHROID 150 mcg tablet Take 1 tablet by mouth once daily. Except 1/2 tab Sun and Sat drospirenone, contraceptive, (SLYND) 4 mg (28) tabet Take 1/4 pill daily. Noncontraceptive purpose.Please apply company discount, process as self-pay if insurance does not cover. testosterone (TESTIM) 50 mg/5 g (1%) gel Dispense 30 tubes (not packets). Put 1 tube in a 5 cc syringe and use half cc a day (5mg daily). Apply to vulva. 1 tube should last 10 days. cholecalciferol (VITAMIN D3) 1,000 unit tab tablet Take 1 tablet by mouth once daily. Estradiol (ESTROGEL) 1.25 gram/actuation glpm 1 application as directed. 1 PUMP TWICE DAILY. APPLY THIN LAYER TO ARM FROM WRIST TO SHOULDER. 1 yr of refills Nizatidine (AXID) 150 mg capsule Take 1 capsule by mouth two times a day. Lancets lancets Test blood sugar(s) 2 times daily. Insulin: No blood sugar diagnostic (BLOOD GLUCOSE TEST) test strip Test blood sugar(s) 2 times daily. Insulin: No testosterone in versabase topical cream 1% (CPD) Apply 0.1ml to vulva twice daily albuterol HFA (PROVENTIL HFA) 90 mcg/actuation inhaler [...] 2 stroke Colon Cancer Father age 64 [place] Diabetes Father Type 2 Hypertension Father Coronary Artery Disease Father Hx of [place] Thyroid Sister hx of parathyroid disease/ hx of fibroids other (healthy) Brother other (healthy) Brother Allergies Daughter other (healthy) Daughter other (healthy) Son other (healthy) Son other (healthy) Son other (healthy) Son Colon Cancer Paternal Aunt x5 Colon Cancer Paternal Uncle x8 Social History Tobacco Use Smoking status: Every Day Current packs/day: 1.00 Average packs/day: 1 pack/day for 20.0 years (20.0 ttl pk-yrs) Types: Cigarettes Smokeless tobacco: Never Vaping Use Vaping status: Never Used Substance Use Topics Alcohol use: No Drug use: No Reviewed current medications, allergies, past medical history, surgical history, family history andsocial history today. REVIEW OF SYSTEMS All other reviewed and negative other than HPI. VITALS: Could not assess Last 4 Encounter Wt Readings: Date: Wt: 11/29/2023 95.7 kg (211 lb) 11/16/2023 95.3 kg (210 lb) 10/14/2023 96.2 kg (212 lb) 09/24/2023 95.8 kg (211 lb 3.2 oz) PHYSICAL EXAMINATION: Patient is alert and oriented during visit. Answers appropriately. Breathing comfortably.. chest rise normal. No audible wheeze. Patient notes no irregularity to pulse. Normal cap refill. ASSESSMENT/PLAN: 1. Iron deficiency anemia, unspecified iron deficiency anemia type - ICD9: 280.9, ICD10: D50.9 (primary diagnosis) - recheck level. - IRON AND TIBC 2. Heavy metal exposure - ICD9: V87.09, ICD10: Z77.018 - await testing. Check levels. - HEAVY METALS SCRN BL - BASIC METABOLIC PANEL - ZINC BLD - COPPER BLOOD - MANGANESE BLD - CHROMIUM BLOOD - ALUMINUM BLD Freddy Nava MD documented in this encounterSt. Elizabeth Hospital10-17-[address] [facility] Telephone encounter Note* Telephone Encounter - Ann Marie Valverde LPN - 02/02/2024 10:51 AM EDT Prescription Refill Information The patient has been identified by name and date of : Yes Caregiver verified no other encounters exist for this prescription request: Yes Caregiver confirmed with patient/requestor that no other refills are due, in the near future, with this provider at this time: Yes The last office visit in the department: 12/04/23 Does the patient have a future office visit with this provider/department: No My chart message sent Requested Prescriptions Pending Prescriptions Disp Refills SYNTHROID 150 mcg tablet 30 tablet 0 Sig: Take 1 tablet by mouth once daily. Except 1/2 tab Sun and Sat Ann Marie Valverde LPN February 02, 2024 10:[address] [facility] Miscellaneous Notes* Telephone Encounter - Ann Marie Valverde LPN - 02/02/2024 10:51 AM EDT Prescription Refill Information The patient has been identified by name and date of : Yes Caregiver verified no other encounters exist for this prescription request: Yes Caregiver confirmed with patient/requestor that no other refills are due, in the near future, with this provider at this time: Yes The last office visit in the department: 12/04/23 Does the patient have a future office visit with this provider/department: No My chart message sent Requested Prescriptions Pending Prescriptions Disp Refills SYNTHROID 150 mcg tablet 30 tablet 0 Sig: Take 1 tablet by mouth once daily. Except 1/2 tab Sun and Sat Ann Marie Valverde LPN February 02, 2024 10:52 AM documented in this encounterSt. Elizabeth Hospital10-08-2024 History of Present illness Narrative* Ly Pérez MD - 02/01/2024 3:00 PM EDT MEDICAL GENETICS FOLLOW-UP VISIT NOTE Patient full name: Maribell Garzon Date of : 1965 Present during this visit: The patient Primary care provider: Freddy Nava MD Primary care/referring provider: Freddy Nava MD Medical history was obtained from the patient. Prior to this appointment, I reviewed medical records from outpatient medical records and scanned documents, if available. This visit was completed via televideo. All issues as below were discussed and addressed but no physical exam was performed. If it was felt that the patient should be evaluated in clinic then they were directed there. The patientconsented to visit. Interval history: Ms. Garzon is a 58 y.o. female who returned to Genetics clinic for complex health issues. We obtained three genetic tests which came back non-diagnostic (See Results): - Testing for cancer genes came back negative; - Testing for Fragile X syndrome came back negative; - Duo exome sequencing came back non-diagnostic with two variants (FAM20A and FLNB). She is here to discuss results. From my first note, with updates on dental phenotypes: Ms. Garzon is a 57 y.o. female who was referred to Genetics for complex health issues. Her medical diagnoses from chart review and interview include CFS/fibromyalgia, ANDRESSA, mitral valve prolapse (report of echocardiogram is not available), GERD, ADHD, fatty liver on imaging, umbilical/inguinal hernia, asthma, hyperthyroidism then hypothyroidism after treatment, h/o syncope, pre-DM, h/o ovarian cyst s/p cyst removal, protein S deficiency. She stopped having periods at 42 years of age. There was no period of irregular period. Was told she has early menopause. Has been on hormone replacement since. She has concerns re: hereditary angioedema. Has had allergic reactions, mostly with identified triggers. C4 levels were normal. She reports history of Arnold Chiari malformation. The last MRI of the brain (2018) showed minimal cerebellar tonsillar ectopia. 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 She also reports other congenital differences at the pelvic organ and KUB system (?double renal pelvis). However, subsequent CT scan of the abdomenand pelvis did not identify any congenital differences. She reports started having tooth issues (teeth just started to fall out) in her teens and needed touse ventures around 26-27 years old. Uncertain if she had issues with teeth eruptions. Reports abnormal yellowish teeth color. No abnormality in number of teeth. No reported gingival hyperplasia. Teeth started to decay in 6th grade, stating teeth were nothing but fillings. Review of system: - Positive: early degenerative disc disease (in her 20s), blurred vision without previous ocular diagnoses (except hyperopia), burning all over, many episodes of fast heart rate, chronic fatigue, edema, brain fog, dysphagia, aspiration, reflux, occasional chest pain/dyspnea, constipation,diarrhea, depression/anxiety, chronic musculoskeletal pain, lifetime fractures fewer than 5 times (all associated with traumas/injuries), early-onset varicose veins (started in her 20s), and historical joint hypermobility. - Negative: Congenital differences at , bone deformity, neurodevelopmental disorders (autism, learning disability, significant developmental delays, intellectual disability), seizures, strokes. - Pediatric history: reports that she stayed in the hospital for 6 weeks after but the diagnoses are unknown. Reports that she needed to wear braces at leg until 4 yo but the diagnosis is unknown. 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 Family history, updated 02/01/2024: Five-generation family tree was obtained and scanned to chart, under Genetics folder. Pertinent history She has 6 children born to two fathers (2 and 4 children). The father of her 4 children (her ex-) has a father who had metastatic prostate cancer. She has two daughters, both of whom developeddegenerative disc disease at young age (14 and 16 years old), detected by x-rays. Brother is slow and has challenges. Nephew has lateral meningocele syndrome and its complications. Mom (77) h/o strokes 60s. Two maternal aunts (d) with breast ca in their 40s and stomach cancer in their 60s. Dad (d) CRC He had 13 sibs, all of them had GI cancers (likely CRC). No other family members with parkinsonism, severe intellectual disability, or premature menopause. Paternal side: ? Maternal side: ? Ashkenazi Yarsani: Denied Consanguinity: ?possible Physical examination: General: Alert. No acute distress. Well-nourished. Head and face: Normal head shape. Eyes: Normal positioned palpebral fissures. Intercanthal distance appears normal. Sclerae not blue.Eyelashes and eyebrows appear normal. Nose: Not dysmorphic Ears: Not dysplastic. Not low set or posteriorly rotated. Mouth: Normal lips and philthrum. Palate and uvula appear normal. Normal appearing teeth. Chin: Without micro-, retrognathia Neck: Not short. No excess nuchal skin fold. No webbed neck. Lungs and chest wall: Wheezing is present throughout. CVS: Regular rate and rhythm. No murmur. Extremities: Hands, feet, fingers and toes appear normal except mild 2nd/3rd toes syndactyly bilaterally. Multiple varicose veins at lower legs. Not edematous. No tenderness. Neurologic: EOMI without nystagmus. No ptosis. No facial palsy. Tongue in midline. No dysarthria. Normal gait without abnormal movement. Psychiatric: Cooperative. Appropriate mood and affect. Results: Genetic testing 1) [facility] panel, DNA/RNA sequencing -- negative Genes Analyzed (34 total): APC, RABIA, BARD1, BMPR1A, BRCA1, BRCA2, BRIP1, CDH1, CDK4, CDKN2A, CHEK2,DICER1, MLH1, MSH2, MSH6, MUTYH, NF1, NTHL1, PALB2, PMS2, PTEN, RAD51C, RAD51D, SMAD4, SMARCA4, STK11 and TP53 (sequencing and deletion/duplication); AXIN2, HOXB13, MSH3, POLD1 and POLE (sequencing only); EPCAM and GREM1 (deletion/duplication only). RNA data is routinely analyzed for use in variantinterpretation for all genes. 2) Fragile X testing - negative 3) [facility] duo exome sequencing Negative [facility] Secondary Findings (discussed) FLNB, c.[id number]>A ([id number]), VUS, absent in mother FAM20A, [id number], Likely Pathogenic, absent in mother Echocardiogram 02/15/18 - scanned to chart Equivocal MVP, otherwise normal aortic root size ALP - normal US spleen 06/2023 IMPRESSION: Increase in echogenicity of the liver, likely secondary to hepatic steatosis. US pelvis 12/2021 IMPRESSION: Endometrium has ill-defined margins but without obvious mass measuring 0.69 cm transvaginally. Small fibroid uterine fundus anteriorly. Normal adnexa. CT abdomen/pelvis 12/2021 RESULT: Liver: No mass. Biliary: No bile duct dilation. The gallbladder is not visualized. Spleen: No mass. No splenomegaly. Pancreas: No mass or duct dilation. Adrenals: Slight prominence of the left adrenal gland however unchanged. Kidneys: There are a few low-attenuation lesions or cysts in the bilateral kidneys measuring up to 9 mm. No hydroureteronephrosis. GI tract: No dilation or wall thickening. The appendix is identified and normal in appearance. No diverticulitis. Lymph nodes: No abdominal or pelvic lymphadenopathy. Mesentery/Peritoneum: No ascites or mass or free abdominal air. Retroperitoneum: No mass. Vasculature: There are atherosclerotic calcifications in the abdominal aorta and its branches. The celiac artery, SMA, RANJEET and portal veins are patent. Pelvis: No mass, ascites or fluid collection. Bones/Soft Tissues: A few fat-containing umbilical/paraumbilical hernias are visualized with the largest one measuring 3 cm. The spine shows degenerative changes. Lower thorax: No pleural effusions. The lung bases are clear of consolidations. 09/28/2019 IMPRESSION: Diffusely heterogeneous uterus. 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 10/02/2017 The diffusion-weighted imaging is without evidence of [...] parenchymal edema or brain parenchymal signal abnormality. Assessment: ###Family history of cancers Ms. Garzon has several family members on paternal side with CRC and early-onset breast cancer and gastric cancer in two maternal aunts. We obtained a next-generation sequencing panel of 34 genes for cancer, which came back negative. These results do not explain the family history of cancer. Ms. Garzon's results could be negative for several possible reasons: - The cancer might not be due to a single-gene cause. The vast majority of cancer is sporadic or familial without a gene mutation. - There could be a mutation in the family that the patient did not inherit. - There could be a mutation in one of the tested genes that cannot be found with current testing methods. - There could be a mutation in a gene that has not yet been linked to hereditary cancer or was not tested. Since there is no identified pathogenic variant, no additional cancer screening and risk-reducing surgeries for individuals with cancer predisposition syndromes is recommended. I will defer her cancer care to Oncology team. Ms. Garzon should have age-appropriate cancer screening per her PCP. Other preventative measures such as sunscreen use and no smoking are recommended. According to NCCN guidelin es, she should undergo a colonoscopy every five years or sooner. With regard to other family members: - Given extensive family history of cancer, all paternal and maternal relatives (including her mother) should seek a genetics consultation. All of her siblings meet the genetic testing criteria. - Four of her children were born to her ex- whose father had mestastatic prostate cancer. Hemeets the genetic testing criteria per NCCN. If negative, there is no testing indication in her children. If positive, four of them should get tested. Plan: - Test report provided. - Age-appropriate cancer screening per PCP. According to NCCN guidelines, she should undergo a colonoscopy every five years or sooner. - Recommendations for other family members as outlined above. - I encourage Ms. Garzon to keep me updated if there are any changes to her personal or family history of cancer, or if a pathogenic variant is identified in other family members. ###Complex health issues Ms. Garzon has complex health issues as outlined above, particularly early teeth loss and premature menopause. Physical exam is without significant dysmorphic features. I previously reviewed with her that my suspicion for any monogenic disorder was not high given her health history. Two unusual issues that warrant further testing are dental problems and premature menopause. Testing for FMR1 premutation, which may cause premature ovarian failure, came back negative. We proceeded with exome sequencing which came back non-diagnostic with two variants. We discussed them in detail. 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 From [employer]: The FLNB disorders include a spectrum of phenotypes ranging from mild to severe. At the mild end are spondylocarpotarsal synostosis (SCT) syndrome and Parker syndrome; at the severe end are the phenotypic continuum of atelosteogenesis types I (AOI) and III (AOIII) and Piepkorn osteochondrodysplasia (POCD). SCT syndrome is characterized by disproportionate short stature, scoliosis and lordosis, clubfeet, hearing loss, dental enamel hypoplasia, carpal and tarsal synostosis, and vertebral fusions.. I reviewed the concept of VUS. This may or may not be her diagnosis. VUSes may be reclassified in the future when more information is available. If this variant is truly pathogenic, it may explain some of her skeletal issues such as early-onset degenerative spine disease. However, many individuals with this phenotype do not have an underlying genetic disorder. To clarify whether this VUS is pathogenic, I recommend: First, wait. In the future, the variant maybe reclassified either to positive or negative. Second, obtain skeletal survey. Given that FLNB disorders are skeletal dysplasias, if we see some skeletal findings typically seen in FLNB disorders (such as spondylocarpotarsal synostosis) in Ms. Garzon, our suspicion that this VUS is pathogenic wouldbe higher. Establishing the diagnosis of FLNB disorder would allow for familial variant testing. She needs to see providers for musculoskeletal issues regardless. However, a regular hearing test is re commended in this condition. 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 It is a disorder that affects the structure and appearance of the enamel of the teeth. This condition causes teeth to be very small, discolored, pitted or grooved, and prone to rapid wear and breakage with early tooth decay and loss. Although Ms. Garzon has some symptoms of AI, these results are not diagnostic given that only one variant was identified whereas the condition is autosomal recessive. The concept of AR inheritance andcarrier was discussed. It is possible that she is a carrier of [id number] AI and we do not havea molecular explanation for her dental issues. It is also possible that she has [id number] AI and another second variant was missed by exome sequencing. Studies have shown that there are some types of mutations (such as copy number variants) that would not be detected by exome sequencing technology (PMID: 01697982). Ms. Garzon is interested in pursuing additional testing to assess the presence of another mutation in this gene, to confirm the diagnosis. Establishing the diagnosis in her would allow for family planning for other family members. Furthermore, there is a reported association between FAM20A mutations and renal disease (called enamel renal syndrome). Therefore, confirming the diagnosis would allow for renal surveillance. I reviewed chromosome microarray as the next step of testing to look at any deletion and duplication in FAM20A. The test may incidentally identify other chromosomal findings as well as parental consanguinity. The patient consented to testing verbally. Of note, there is no molecular cause of premature menopause identified. She does not have hereditary angioedema, given normal C4 and negative genetic testing. [facility] Secondary Findings were negative. Plan: - Test report provided. - Skeletal survey to evaluate signs of FLNB disorders. - chromosome microarray to evaluate a copy number variant in the FAM20A gene that could have been missed by exome sequencing, to establish a diagnosis of [id number] amelogenesis imperfecta. RTC 2 mo Ly Pérez MD [facility] Address: [address] [place] [address], [place] [address] Time spent (this information is required by insurance): [id number]-xs-[id number] 65min; preparation 10min; documentation 35min; discussing with Lab re: microarray testing 5min; total time spent 105min documented in this [facility]University [facility] Work Phone: [phone] 501-246110-03-2024 History of Present illness Narrative* Freddy Nava MD - 01/27/2024 10:40 AM EDT Never checked in. Attempted to call patein. Mailbox is full and no answer. [facility] NoteHNO ID: [id number] Author: FREDDY NAVA MD Service: ? Author Type: Physician Type: Progress Notes Filed: 01/27/2024 10:48 Note Text: Never checked in. Attempted to call patein. Mailbox is full and no answer. [facility] Telephone encounter Note* Telephone Encounter - Shante Stafford MA - 01/26/2024 12:06 PM EDT PA approved and medication is covered 84 days Authorized from January 26, 2024 to April 18, 2024. Tried to call patient no answer and vm was full sent david Stafford MA [facility]10-[facility]24 Miscellaneous Notes* Telephone Encounter - Shnate Stafford MA - 01/26/2024 12:06 PM EDT PA approved and medication is covered 84 days Authorized from January 26, 2024 to April 18, 2024. Tried to call patient no answer and vm was full sent david Stafford MA * Telephone Encounter - Shante Stafford MA - 01/26/2024 11:52 AM EDT Received PA from pharmacy and completed electronically Shante Stafford MA documented in [facility]St[facility]24 Telephone encounter Note * Telephone Encounter - Shante Stafford MA - 01/26/2024 11:52 AM EDT Received PA from pharmacy and completed electronically Shante Stafford [facility] [facility] History of Present illness Narrative* Paul Duron MD - 01/20/2024 10:03 AM EDT . My name and active licensure communicated. The patient's identity and physical location were verified at the time of this visit. Either the patient or their legal high school admissions representative has been informed of the risks and benefits of -- and alternatives to -- treatment through a remote evaluation and consents to proceed with the evaluation remotely. * Paul Duron MD - 01/20/2024 8:52 AM EDT Virtual visit, January 20, 2024 Start review of records, labs, interim events 8:56 AM Maribell Garzon is 58 year old. I called to remind about appt, pt able to connect late- but luckily able to complete visit. I have been seeing her since 11/[address] Angelo for hormonal concerns. 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 Has had hormonal sensitivities throughout her life, difficulty tolerating any hormonal regimens. Profound PMS symptoms: heart racing, dizzy, muscle tension within 12 hours prior her cycle starting. Within 2 min of bleeding the sxs would resolve, this would occur consistently. States essentially had been in a chair since age 50. Hx of ovarian cysts and likely PCOS (always felt better with high androgens), s/p left oophorectomy for benign reasons (path reviewed). LMP in 2009, age 42-43. Lab confirmed menopause-soon after gynecologic surgery. Debilitating symptoms since surgery, disabled from work, unable to drive. When in menopause many of the symptoms that she would experience premenstrually got much worse. Including arthralgias, told FM, she did notbelieve diagnosis. Anxiety was bad, tried multiple meds. Dry eyes, severe. Burning mouth (goes awaycompletely with the ET). Brain fog. Has been seeing medical providers for multiple concerns. Is hete rozygous for MTHFR mutation, never had a VTE with 6 pregnancies. Did see hematology who said can use estrogen, but prefer transdermals. She has also been dealing with hyperthyroidism.Got her COVID shot around 02/13 and multiple medical issues latter 2020 which she also feels impacted her hormones. 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 We have been trying to get her to tolerate the E2 and P individually, though understands cannot use unopposed estrogen for prolonged periods for endometrial safety. Her prior doctors were offering compounded topical [...] past has varied during our different visits). We did discuss needing to give time prior to dose adjustments. Throughout 2021 got her to tolerate a progestin first (long history of progestin intolerance), and by 03/17 Slynd 1/4 of tab daily was working well for her. For the estrogen, some of the best tolerated w 0.3 ml bid of the biest (04/16) and inc to 1/2 pill of slynd (was feeling better with this dose, driving). Based on my calculation, she was getting approximately 1.2 mg of estradiol, as well as es triol. She was happy with the half pill of the Slynd (2 mg). Since she has always been high testosterone in the past, prior to her surgery, she felt strongly that testosterone replacement will help her best-we were waiting to optimize the estrogen dosing before finalizing decision on trying additional testosterone options outside of below (more dilute dosing so that she can use more frequently (as she had the same issues with the crashing of hormone levels throughout the 24 hours if testosterone used once daily). However has noticed hair loss (prior to use of any testosterone)-discussed mayexacerbate. She has had a lot of setbacks in terms of being able to get her hormones due to cost and compounding pharmacy delays. ........ Previously tried/offered: -Depoprovera couldn't walk. -OCPs multiple sxs of panic/heart racing rushing noises in ear (bathroom fan would sound like an airplane). -Antianxiety medications-tried multiple -Vivelle- too stimulated, even on the 25-50 mcg, q 2-3.5 days. Dose was increased to 50 which helped better with sxs, but legs would swell. Tried 4-6 wks for each. feels heart racing when the estrogen seems to be dropping. Within 2 hours of coming off the patch her HR would come down. [facility] resident care manager rn of Vivelle : feels it depletes too quickly -Combipatch- HR was high 130s sinus tach noted with PCP, so was told her to come off due to possible allergy. Saw cards and EP- told heart is not the problem, but a symptom of what is going on. Came off after 3 days, also felt drunk and dizzy with it. Took 1 mo for the drunken dizzy sensation to goaway. -estrogel- did ok initially, felt Better with twice a day, but at the higher dose legs would swell.3 wks between dose adjustments, she did not like the fact that her HR would go up when waiting 24 hours between doses (felt that she was metabolizing the estrogen quickly). -Divigel start with quarter or less of the packet daily, and slowly move up to the full dose as tolerated-cost prohibitive -Bi est-liked in past, she felt like it was too much. The pharmacist was managing. 3 mg E2/0.5 of E3, she didn't feel comfortable with the way the pharmacist wanted to change the dosing. She felt that it was too E2 heavy. -Biest 08/15 rxed from us, 1 Click 0.25 g (which we typically use for vaginal local low-dose therapy) of the cream and pickle sorter a 1 mL syringe, start with use of 0.1 mL at a time, which she can use twice daily or 3 times daily if even needed. tried for 2 days, because had difficulty with the syringe so she tried the full dose of the 1 click instead.- also limited insurance coverage. The heart started racing and fluctuation symptoms. Was not clear which when she tolerated the best, spoke with our compounding pharmacy. 5 mg dose, which would be dispensed in 1 mL syringes, so that she can use 0.1-0.2 mL, 2-3 times a day as tolerated. -Estratest and NET 0.[address] Trevino- kicked up GERD which she felt pushed into an asthma attack -Prometrium 100 made her feel drunk and dizzy. Tried vaginally too, but bladder spasm. Progesteronecompounded transdermally after 20 mg starts getting similar symptoms (by OSH doctor) -Estradiol p.o. 3 days into crying for no reason (although dr Trevino's notes says this was with FemHRT) -No progestin that she has been able to tolerate until the Slynd,however she does sleep better withthe Prometrium. -Mirena: daughter got hives, and it took a week for someone to remove it, nervous about anything that is not patient controlled. -Testosterone compounded 04/16, goal of 1 mg twice daily-limited by being able to get it quickly atpharmacy. INTERIM UPDATE 01/20/2024: She had updated in person visit 08/17. Was on Slynd quarter pill only through 04/17 (tolerated higher, but has been hesitant to increase). Received EstroGel from [facility] around that time. She had felt best with EstroGel 1 pump twice daily in the past. When using twice a day, the 50 g lasted a little over a month. However by the time of her 11/16 visit she was only on EstroGel 1 pump, Slynd quarter pill daily. At 11/16 follow-up she had wanted to do a trial of Testim, prescribed. She just received this, so hasn't had a chance to start yet. She also feels that the 1 pump is not enough, she feels great for the first 6 hours, and then many symptoms recur thereafter. PAST HISTORY (reviewed and updated): OB History T6 L6 SAB0 IAB0 Ectopic1 Multiple0 Live Births6 Comment: menarche 12 FFTP 15 menopause age 43 ACTIVE PROBLEM LIST Postablative Hypothyroidism hx of low vitamin D Panic Disorder With Agoraphobia Chronic Fatigue Syndrome With Fibromyalgia Blood Pressure Elevated Without History of Htn Impaired Glucose Tolerance Svt (Supraventricular Tachycardia) ([facility]) Ptsd (Post-Traumatic Stress Disorder) Attention Deficit Hyperactivity Disorder (Adhd), Combined Type Recurrent Major Depressive Disorder, in Partial Remission (Hcc) menopause age 43 Tobacco Use Gerd Without Esophagitis Simple Chronic Bronchitis (Hcc) Irritable Bowel Syndrome With Diarrhea Burning Sensation of Mouth Burning Sensation of Skin Sleep Difficulties Mitral Valve Prolapse Estrogen Deficiency Adrenal Adenoma, Left Andressa (Obstructive Sleep Apnea) Nocturnal Oxygen Desaturation 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) Cyp2c9 Intermediate Metabolizer (Hcc) Pnr2x06 Rapid Metabolizer (Hcc) Ugt1a1 Intermediate Metabolizer (Hcc) Heterozygous Factor V Leiden Mutation (Hcc) Hormone Deficiency Menopausal and Perimenopausal Disorder Mood Change Diabetes Mellitus Type 2, Controlled, Without Complications (Hcc) Myalgia Autonomic Dysfunction Muscle Weakness Obesity, Class II, Bmi 35-39.9 PAST MEDICAL HISTORY Diagnosis Date Abdominal pain, [...] conflict 03/07/2013 Rectocele 05/13/2009 SVT (supraventricular tachycardia) ([facility]) Has seen cardiology at OSH, many [...] 2 stroke Colon Cancer Father age 64 ND Diabetes Father Type 2 Hypertension Father Coronary Artery Disease Father Hx of ND Thyroid Sister hx of parathyroid disease/ hx of fibroids other (healthy) Brother other (healthy) Brother Allergies Daughter other (healthy) Daughter other (healthy) Son other (healthy) Son other (healthy) Son other (healthy) Son Colon Cancer Paternal Aunt x5 Colon Cancer Paternal Uncle x8 Social History Tobacco Use Smoking status: Every Day Current packs/day: 1.00 Average packs/day: 1 pack/day for 20.0 years (20.0 ttl pk-yrs) Types: Cigarettes Smokeless tobacco: Never Vaping Use Vaping status: Never Used Substance Use Topics Alcohol use: No Drug use: No Social History Social History Narrative She lives in [place] [id number] 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[place], 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 TESTING: Last 10 Encounter BP Readings: Date: BP: 11/29/2023 146/88 11/16/2023 130/82 10/14/2023 128/86 09/24/2023 144/99 09/13/2023 140/96 07/28/2023 151/91 07/07/2023 132/86 06/18/2023 132/82 05/31/2023 124/92 08/06/2022 142/82 Lab Results Component Value Date TSH 1.690 12/03/2023 TSH 0.928 10/15/2023 TSH 2.080 06/15/2023 TSH 0.771 05/21/2023 TSH 1.060 10/02/2022 TSH 0.61 08/03/2022 B12 509 10/15/2023 B12 506 07/16/2020 B12 483 09/06/2019 B12 576 03/22/2019 B12 683 12/01/2017 B12 622 01/27/2017 VITD25 24.8 (L) 10/15/2023 VITD25 43.6 07/09/2023 VITD25 11.3 (L) 05/21/2023 VITD25 35.8 08/01/2021 VITD25 16.2 (L) 05/26/2021 VITD25 17.2 (L) 05/20/2020 HB 15.2 05/21/2023 HB 15.2 10/02/2022 HB 15.6 (H) 06/17/2022 HB 15.7 (H) 05/25/2022 HB 15.6 (H) 12/31/2021 HB 15.7 (H) 04/24/2021 SARAY 222.0 (H) 10/15/2023 SARAY 142.0 09/06/2019 SARAY 168.8 06/23/2017 SARAY 172.8 01/27/2017 WBC 10.99 05/21/2023 WBC 10.96 10/02/2022 WBC 11.46 (H) 06/17/2022 WBC 12.95 (H) 05/25/2022 WBC 10.49 12/31/2021 WBC 10.20 04/24/2021 PLT 268 05/21/2023 PLT 288 10/02/2022 PLT 298 06/17/2022 PLT 287 05/25/2022 PLT 314 12/31/2021 PLT 275 04/24/2021 CREAT 0.78 10/26/2023 CREAT 0.80 10/15/2023 CREAT 0.74 07/09/2023 CREAT 0.76 05/21/2023 CREAT 0.78 05/25/2022 CREAT 0.83 12/31/2021 CA 9.3 10/26/2023 CA 9.4 07/09/2023 CA 9.1 05/21/2023 CA 9.1 05/25/2022 CA 9.9 12/31/2021 CA 9.1 04/24/2021 K 4.1 10/26/2023 K 4.1 07/09/2023 K 4.1 05/21/2023 K 3.9 05/25/2022 K 4.7 12/31/2021 K 3.7 04/24/2021 MG 2.0 07/09/2023 MG 1.8 04/24/2021 MG 1.9 05/20/2020 MG 2.1 12/19/2018 MG 2.0 03/09/2018 MG 2.2 11/10/2017 NA 139 10/26/2023 NA 137 07/09/2023 NA 136 05/21/2023 NA 137 05/25/2022 NA 139 12/31/2021 NA 138 04/24/2021 AST 31 07/09/2023 AST 45 (H) 06/15/2023 AST 41 (H) 05/21/2023 AST 22 05/25/2022 AST 26 12/31/2021 AST 22 04/24/2021 ALT 58 (H) 07/09/2023 ALT 75 (H) 06/15/2023 ALT 63 (H) 05/21/2023 ALT 33 05/25/2022 ALT 41 (H) 12/31/2021 ALT 35 04/24/2021 HBA1C 6.3 (H) 10/15/2023 HBA1C 6.3 (H) 05/21/2023 HBA1C 6.1 (H) 05/25/2022 HBA1C 5.9 (H) 12/31/2021 HBA1C 6.0 (H) 05/09/2021 HBA1C 6.0 (H) 12/11/2020 GLUC 169 (H) 10/26/2023 GLUC 145 (H) 07/09/2023 GLUC 107 (H) 05/21/2023 GLUC 143 (H) 05/25/2022 GLUC 81 12/31/2021 GLUC 154 (H) 04/24/2021 LDL 91 10/15/2023 LDL 68 12/04/2019 LDL 81 12/10/2017 LDL 77 11/09/2016 LDL 69 10/21/2011 TG 96 10/15/2023 TG 102 12/04/2019 TG 67 12/10/2017 TG 49 11/09/2016 HDL 40 10/15/2023 HDL 37 (L) 12/04/2019 HDL 34 (L) [...] 06/15/2019 PROG 0.2 01/25/2017 PROG 0.3 08/03/2014 NLVXP69V <25 05/20/2020 LCATC15N <25 12/04/2019 PVSFJ41L <25 09/06/2019 CQDYX99X <25 08/16/2019 BYUKX30Q 46 07/21/2019 RXVHH14J <25 06/15/2019 SHBG 86 02/02/2023 SHBG 10/06/2011 57 Unit: nmol/L (NOTE) -- REFERENCE VALUE -- 18-144 (non-) Test performed by: [facility], [place], [place], unless otherwise specified above. TESTT 23 02/02/2023 TESTFREE 2.1 02/02/2023 TESTFREE 0.34 05/20/2020 TESTFREE 0.22 12/04/2019 TESTFREE 0.25 09/06/2019 TESTFREE 0.22 08/16/2019 TESTFREE 0.42 06/15/2019 DHEAS 22.7 (L) 06/15/2019 DHEAS 25.7 (L) 12/12/2018 DHEAS 30.8 (L) 01/03/2018 DHEAS 37.4 12/10/2017 DHEAS 32.1 (L) 09/08/2017 DHEAS 21.8 (L) 11/21/2016 PROL 11.0 11/21/2016 PROL 4.8 01/14/2012 PROL 4.1 10/05/2006 Testosterone Date Value Ref Range Status 05/20/2020 31 8 - 60 ng/dL Final Comment: (NOTE) ADDITIONAL INFORMATION Testing performed by Liquid Chromatography-Tandem Mass Spectrometry (LC-MS/MS). This test was developed and its performance characteristics determined by [facility] in a manner consistent with CLIA requirements. This test has not been cleared or approved by the U.S. Food and Drug Administration. 12/04/2019 20 8 - 60 ng/dL Final Comment: (NOTE) ADDITIONAL INFORMATION Testing performed by Liquid Chromatography-Tandem Mass Spectrometry (LC-MS/MS). This test was developed and its performance characteristics determined by [facility] in a manner consistent with CLIA requirements. This test has not been cleared or approved by the U.S. Food and Drug Administration. 09/06/2019 23 8 - 60 ng/dL Final Comment: (NOTE) ADDITIONAL INFORMATION Testing performed by Liquid Chromatography-Tandem Mass Spectrometry (LC-MS/MS). This test was developed and its performance characteristics determined by [facility] in a manner consistent with CLIA requirements. This test has not been cleared or approved by the U.S. Food and Drug Administration. 08/16/2019 22 8 - 60 ng/dL Final Comment: (NOTE) ADDITIONAL INFORMATION Testing performed by Liquid Chromatography-Tandem Mass Spectrometry (LC-MS/MS). This test was developed and its performance characteristics determined by [facility] in a manner consistent with CLIA requirements. This test has not been cleared or approved by the U.S. Food and Drug Administration. 06/15/2019 30 8 - 60 ng/dL Final Comment: (NOTE) ADDITIONAL INFORMATION Testing performed by Liquid Chromatography-Tandem Mass Spectrometry (LC-MS/MS). This test was developed and its performance characteristics determined by [facility] in a manner consistent with CLIA requirements. This test has not been cleared or approved by the U.S. Food and Drug Administration. 12/12/2018 See Comment <40 ng/dL Final Comment: The total testosterone result is 20 ng/dL, the reference range of [facility] is 8 to 60 ng/dL. Disregard [facility] reference range. Interpret the result using the reference range provided by the performing laboratory. Results should not be compared to previously reported results using [facility]'s assay due to differences in methodology. Test performed by: [facility], [place], [place] Testing performed by Liquid Chromatography Tandem Mass Spectrometry. 07/27/2018 30 <40 ng/dL Final 05/17/2018 19 <40 ng/dL Final 01/03/2018 29 <40 ng/dL Final 09/08/2017 39 <40 ng/dL Final Last Bone Density No resulted procedures found. Last Screening Mammogram [facility] SCREENING Exam End: 07/01/2022 2:50 PM (Final result) Narrative: * * *Final Report* * * DATE OF EXAM: Jul 01 2022 2:50PM RADHA [id number] - [facility] SCREENING / PROCEDURE REASON: Encounter for screening mammogram for breast cancer * * * * Physician Interpretation * * * * RESULT: #[id number] - [facility] SCREENING BILATERAL DIGITAL SCREENING MAMMOGRAM WITH CAD: 07/01/2022 HISTORY: Encounter For Screening Mammogram For Breast Cancer. RESULT: TECHNIQUE: The study was acquired using full field digital technology and interpreted from soft copy. Current study was also evaluated with a Computer Aided Detection (CAD). Comparison is made to exams dated: 06/16/2019 mammogram and 12/24/2015 mammogram - [facility]. There are scattered fibroglandular elements in both breasts. No significant masses, calcifications, or other findings are seen in either breast. There has been no significant interval change. Impression: IMPRESSION: NEGATIVE There is no mammographic evidence of malignancy. A 1 year screening mammogram is recommended. The exam was reviewed by a staff physician. Ruslan Perez M.D. jolene,michael/mahamed:07/01/2022 15:25:18 Svp Of Digital(s): Belia Trevino RT(R)(M), [facility] letter sent: Normal over 40 Mammogram BI-RADS: [...] Health, Family Medicine, and Medical/Surgical Oncology, the [facility] has carefully reviewed the data and [...] their providers when to stop screening mammograms. Lap Winding Machine Operator: Mahamed Transcribe Date/Time: Jul 01 2022 1:57P Dictated by: HAZEL PEREZ MD This examination was interpreted and the [...] Physician Interpretation * * * * RESULT: #[id number] - [facility] DIG DIAG CAD MARIA A BILATERAL DIGITAL DIAGNOSTIC MAMMOGRAM WITH CAD: 12/24/2015 HISTORY: Mastodynia Bilateral/Palpable lump left axilla /Priors available for comparison. RESULT: TECHNIQUE: The study was acquired using full field digital technology and interpreted from soft copy. Current study was also evaluated with a Computer Aided Detection (CAD). Comparison is made to exam dated: 06/07/2013 mammogram - [facility]. There are scattered fibroglandular elements in both breasts. There are benign lymph nodes in both breasts. No significant masses, calcifications, or other findings are seen in either breast. BENIGN There is no mammographic evidence of malignancy. #[id number] - US BREAST INCL AXILLA LTD ULTRASOUND OF LEFT BREAST: 12/24/2015 RESULT: Comparison is made to exam dated: 06/07/2013 mammogram - [facility]. Ultrasound of the left breast was performed. [...] identified. No interval change. Sanjay camacho/mahamed:12/24/2015 10:46:16 Svp Of Digital: Aline TAYLOR(R)(M), [facility] letter sent: Normal clinical eval OVERALL STUDY BIRADS: 2 Benign Lap Winding Machine Operator: Mahamed Transcribe Date/Time: Dec 24 2015 9:34A Dictated by: SANJAY BROWN DO This examination was interpreted and the report reviewed and electronically signed by: SANJAY BROWN DO on Dec 24 2015 10:46AM EST Last Breast Ultrasound US BREAST MARIA A Collected: 12/24/2015 10:24 AM (Final result) Narrative: * * *Final Report* * * DATE OF EXAM: Dec 24 2015 10:24AM U [id number] - US BREAST INCL AXILLA LTD - LEFT / PROCEDURE REASON: Mastodynia * * * * Physician Interpretation * * * * RESULT: #[id number] - [facility] DIG DIAG CAD MARIA A BILATERAL DIGITAL DIAGNOSTIC MAMMOGRAM WITH CAD: 12/24/2015 HISTORY: Mastodynia Bilateral/Palpable lump left axilla /Priors available for comparison. RESULT: TECHNIQUE: The study was acquired using full field digital technology and interpreted from soft copy. Current study was also evaluated with a Computer Aided Detection (CAD). Comparison is made to exam dated: 06/07/2013 mammogram - [facility]. There are scattered fibroglandular elements in both breasts. There are benign lymph nodes in both breasts. No significant masses, calcifications, or other findings are seen in either breast. BENIGN There is no mammographic evidence of malignancy. #[id number] - US BREAST INCL AXILLA LTD ULTRASOUND OF LEFT BREAST: 12/24/2015 RESULT: Comparison is made to exam dated: 06/07/2013 mammogram - [facility]. Ultrasound of the left breast was performed. [...] identified. No interval change. Sanjay camacho/mahamed:12/24/2015 10:46:16 Svp Of Digital: Aline CISNEROS)(Anushka), [facility] letter sent: Normal clinical eval OVERALL STUDY BIRADS: 2 Benign Lap Winding Machine Operator: Mahamed Transcribe Date/Time: Dec 24 2015 9:34A Dictated by : SANJAY BROWN DO This examination was interpreted and the report reviewed and electronically signed by: SANJAY BROWN DO on Dec 24 2015 10:46AM EST PLAN: The following diagnoses were relevant to this visit: (N95.9) Menopausal and perimenopausal disorder (primary encounter diagnosis) (R20.8) Burning sensation of mouth (L85.3) Dry skin (E34.9) Hormonal disorder (R53.83) Fatigue, unspecified type (I47.10) SVT (supraventricular tachycardia) (HCC) She strongly feels that she needs to be on EstroGel pump more than once daily. She will come in emmanuel estradiol level on the 1 pump daily, and then go ahead and increase to twice daily after she gives the blood work-will be helpful to correlate her absorption and how she feels with dose adjustments. She has the testim to start when feeling ready. Will need a follow-up within 3-4 months. Will need to clarify at next visit when she was on the 1 pump versus 2 pumps, as it has varied. [facility] on 01/20/24 ESTRADIOL BY TANDEM MASS SPECTROMETRY Paul Duron MD Call if any discussed symptoms not better or worse. Note dictated using voice recognition software. documented in this encounterSt. [facility] Instructions* Patient Instructions* Paul Duron MD - 01/20/2024 9:04 AM EDT Images from the original note were not included. Paul Duron MD, [facility] Professor of maintenance and custodian supervisor & Reproductive Biology Staffing Manager & Women's Health [place] Dept of Subspecialty Women's Health IMPORTANT NOTE: we cannot refill prescriptions without a yearly appointment. Appointments OFTEN BOOK OUT SEVERAL months. Please ARRANGE appointments in advance so that prescription refill requests are not INTERUPPTED. Contact info: Scheduling appointments: (Medical Coding Technician call center, best when calling after hours, future appointments that are for 3-6 months out, and they answer right away) or (at my office, so will have more phone tag, but have a few additional appointment options for patients I have seen in the past, called private slots) General questions to my office: (for paperwork, medical questions etc as opposed to scheduling) is our new Women's Health [facility]- a resource to schedule if needing to make appointments for several different specialities, for new patients etc I see patients in the following locations: Wed & : [place] or virtual Wed, & Wed are my teaching/administrative days, but can add on virtually if an urgent hormonal need arises. Getting an appointment when you need it: Please always start with contacting numbers above for an appointment first. If needing an earlier appointment from what is offered, I can add you to my schedule if you send me a [employer] message. Since [employer] messages go to our nursing teams first, for me to actually see your message, I would recommend sending the message as follows with: 1) brief comment on why appointment needed 2) letting us know that you already tried calling the office and scheduled the first available appointment 3) something like Per our conversation, you mentioned you can add me in for a virtual visit, here are some dates/times in the next few weeks that work for me. It is important to include in your message multiple date/time windows that works for you in the upcoming several weeks, given flexibility in my schedule will vary. Times that are best for me: Mondays-4, (virtual only, before 2 preferred) Tuesdays-4, (virtual only, before 2 preferred) Wednesdays (most busy day for me, but all numbers above except for call center know about my hiddenprivate slots they can offer) 9:30 (virtual) or 2:00-3:30 (virtual or [place] A81) Fridays 9-4 (virtual only, before 2 preferred) Please set up an established relationship with any of my Medical Coding Technician colleagues for your general coding technician needs,including preventive annuals, as I work as a outreach consultant for the specialty hormonal concerns. For typical gynecologic concerns (bleeding, vaginal infections, preventive annual etc), I work with an amazing group of doctors and nurse practitioners as a team, as well as the [facility] visits that are available online or at walk-in clinics throughout [facility]. If you don't get a timely response from me, please don't hesitate to be persistent! Occasionally wemay have nurses and schedulers helping out temporarily in our office, causing some delays in getting the message to me. [employer] messages are allowed a 3 business day turnaround. For more urgent matter s, it is always best to contact the [...] can also be uploaded by patients via [employer] (will need to send a message notifying us that you have uploaded them). Thank you for allowing me to participate in your care! New way to get personalized answers to your questions about hormones! From the office of Paul Duron MD, Women's Health Specialist Please note an exciting new option that I think is going to be great resource for our patients. Starting Apr 2023, I will be running weekly group virtual menopause visits (for new or established patients, including those following up with my partners for their coding technician/menopause care).These are also called shared medical appointments, or SMAs. We will cover all things hormonal, including perimenopause, menopause, sexual and bone health, for a 90 minute visit. Hormonal concerns are often complex, Mery find that the typical office visit may not give me enough time to address all of my patient's concerns. This is a great way for me to have more time with my patients, and patients to learn from each other's experiences too. I conducted women's health group visits for 15 years (before [facility]), and they were a lot of fun! Patients liked the fact that they got answers to questions that they did notthink to ask. Why are we doing this? There are roughly 6000 women in the [place] going into menopause every day. Yet, there are only 1500+ certified menopause specialists around the world! Women's needs during this time are very individualized and decisions can be quite complex, leading to a lot of misinformation. Women have questions, we've got answers, but there are far too few of us to reach everyone, so we are looking for creative ways to provide comprehensive care. What is the cost? Although this is a longer visit, it is not billed as a long or complex visit. This will be billed to insurance like a typical short office visit. To ensure we keep visit costs low for patients, I will not be prescribing meds or ordering labs at these visits- the focus will be educational and getting answers to common questions. How do I schedule an appointment for these visits? The video group SMAs are every 10:30 AM to noon, and any [facility] scheduler shouldbe able to schedule this. We are working to streamline the scheduling process, but in the interim if there are any scheduling challenges, xiong phrases that can help the cutting and printing machine operator are to look for my 10:30 AM Medical Coding Technician Main template. is the best number to call to schedule, but can also call . What else should I know about these? 1) You will be in a virtual group Zoom video call with other patients, our women's health nurse specialist, and me. 2) A Hormonal Health Questionnaire will need to be filled out in in advance of the visit (will be sent via [employer]). This ensures that I understand each patient's unique circumstances, and that the info I have is up to date, so that I can provide personalized responses to questions. 3) I will not be ordering labs or managing medications, but focus will be on education/answering questions Hope you consider trying it out! Paul Duron MD Colon cancer screening is offered routinely starting at age 45, earlier if there is a family familyhistory or symptoms. With a family history of [...] regular primary care doctor. documented in this encounterSt. [facility]09-26-[address] [facility] History of Present illness Narrative* Freddy Nava MD - 12/04/2023 10:00 AM EDT Patient presents with: Follow Up HPI:This visit is a phone encounter. It required patient-provider interaction for the medical decision making as documented below. Unable to connect via zoom. Patient has elected to have a visit through distance medicine I have communicated my name and active licensure. The patient's identity and physical location wereverified at the time of this visit. Either the patient or their legal high school admissions representative has been informed of the risks and benefits of -- and alternatives to -- treatment through a remote evaluation andconsents to proceed with the evaluation remotely. Feels like she went suddenly backward. Was doing well until just recently. She has noted in the past that her hormones lose it after a while. They are noting it lasts about four or five hours after applying. No chest pain or shortness of breath. No cough . No gi issues. Note was copied and pasted, without alteration from:last ov. A1c 6.3 Started in Metformin 750 mg daily at last OV with Mague Adkins. She now has the diagnosis of dm based on non fasting glucose noted in the past over 200. Has not started med yet. Worried about side effects. Was on metformin in past and she states it caused low BS readings. US showed small stable right ovarian cyst. No acute findings or abnormalities. CT urogram normal. She is thinking about holding off on her umbilical hernia. It is no longer hurting her. She is still having some lower abd pain and is worried about pelvic floor dysfunction. She is seeing urogyn, Dr. Mcallister soon. She is actually feeling ok on the estradiol!!! They are starting her testim soon. Is also slynd. This actually as good as she has felt while she has been dealing with her hormones. No chest pain or new shortness of breath. Her tsh has been good, however, we anticipate it may change as her hormones change. Will follow it. Latest Ref Rng 12/03/2023 Creatinine, Ur Random (UCRR) 20.0 - 300.0 mg/dL 55.9 Albumin, Urine Random mg/L <12.0 Albumin/Creat Ratio <30 mg/g <21 TSH 0.270 - 4.200 mIU/L 1.690 MEDICATIONS: Current Outpatient Medications Medication Sig testosterone (TESTIM) 50 mg/5 g (1%) gel Dispense 30 tubes (not packets). Put 1 tube in a 5 cc syringe and use half cc a day (5mg daily). Apply to vulva. 1 tube should last 10 days. cholecalciferol (VITAMIN D3) 1,000 unit tab tablet Take 1 tablet by mouth once daily. Estradiol (ESTROGEL) 1.25 gram/actuation glpm 1 application as directed. 1 PUMP TWICE DAILY. APPLY THIN LAYER TO ARM FROM WRIST TO SHOULDER. 1 yr of refills Nizatidine (AXID) 150 mg capsule Take 1 capsule by mouth two times a day. drospirenone, contraceptive, (SLYND) 4 mg (28) tabet Take 1/2 pill daily. Noncontraceptive purpose.Please apply company discount, process as self-pay if [...] (CPD) Apply 0.1ml to vulva twice daily albuterol HFA (PROVENTIL HFA) 90 mcg/actuation inhaler [...] anxiety Tapazole [[place]* Hives PAST MEDICAL HISTORY No date: Abdominal pain, chronic, right upper quadrant No date: Asthma Comment: As a baby, then I outgrew it. 05/13/2009: Cystocele, midline 09/27/2014: Delayed emergence from anesthesia No date: Depression No date: Excessive or frequent menstruation Comment: Heavy periods No date: GERD (gastroesophageal reflux disease) No date: History of Graves' disease 10/21/2011: HSDD No date: Hypothyroidism Comment: thyroid ablation/hypothyroid No date: Irregular menstrual cycle Comment: Irregular periods 2009: menopause age 43 Comment: in 2012 FSH 47 2002: Moderate dysplasia of cervix 03/07/2013: Parent-child conflict 05/13/2009: Rectocele No date: SVT (supraventricular tachycardia) ([facility]) Comment: Has seen cardiology at [facility], many episodes of fast heart rate are actually sinus tachycardia 05/14/2013: Syncope Comment: -Reported that she had one episode of [...] (stress echo). No significant change. - Tele No date: Tobacco use No date: Weight gain PAST SURGICAL HISTORY 04/2017: COLONOSCOPY Comment: says pancho 2001: CONIZATION CERVIX W/WO D&C RPR ELTRD EXC Comment: LEEP-Cervix 01/22/2014,2009: ESOPHAGOGASTRODUODENOSCOPY TRANSORAL DIAGNOSTIC Comment: EGD 05/19/2011: LAPAROSCOPY SURG CHOLECYSTECTOMY 2004: LIG/TRNSXJ FLP TUBE ABDL/VAG APPR UNI/BI Comment: Tubal ligation 09/2014: OOPHORECTOMY PARTIAL/TOTAL UNI/BI Comment: laparoscopic left, CW, umbilical/upper abdominal adhesions seen benign 1998: PAST SURGICAL HISTORY OF Comment: tubal 2001: PAST SURGICAL HISTORY OF Comment: thyroid ablation FAMILY HISTORY Problem Relation Age of Onset Diabetes Mother Type 2 stroke Colon Cancer Father age 64 ND Diabetes Father Type 2 Hypertension Father Coronary Artery Disease Father Hx of [place] Thyroid Sister hx of parathyroid disease/ hx [...] past medical history, surgical history, family history andsocial history today. REVIEW OF SYSTEMS All other reviewed and negative other than HPI. VITALS: Could not assess Last 4 Encounter Wt Readings: Date: Wt: 11/29/2023 95.7 kg (211 lb) 11/16/2023 95.3 kg (210 lb) 10/14/2023 96.2 kg (212 lb) 09/24/2023 95.8 kg (211 lb 3.2 oz) PHYSICAL EXAMINATION: Patient is alert and oriented during visit. Answers appropriately. Breathing comfortably. ASSESSMENT/PLAN: 1. Hormone deficiency - ICD9: [id number], ICD10: E34.9 (primary diagnosis) -was doing as well as she ever has. I wonder if her levels just need adjusted. She will call Dr Duron. Call if any other issues arise. 2. Burning sensation of mouth - ICD9: 528.9, ICD10: R20.8 - as above. 3. Burning sensation of skin - ICD9: 782.0, ICD10: R20.8 - as above. 4. Sleep difficulties - ICD9: 780.50, ICD10: G47.9 - as above. 5. Myalgia - ICD9: 729.1, ICD10: M79.10 - as above. 6. Simple chronic bronchitis (HCC) - ICD9: 491.0, ICD10: J41.0 - stable. 7. ANDRESSA (obstructive sleep apnea) - ICD9: 327.23, ICD10: G47.33 - stable. 8. GERD without esophagitis - ICD9: 530.81, ICD10: K21.9 - as above. 9. Postablative hypothyroidism - ICD9: 244.1, ICD10: E89.0 - thyroid is stable. 10. Controlled type 2 diabetes mellitus without complication, unspecified whether salvage determiner insulinuse (HCC) - ICD9: 250.00, ICD10: E11.9 - have discussed diet. Freddy Nava MD I spent 8 minutes in the visit, with more than 50% of the total [id number] time of the visit in counseling / coordination of care. documented in this encounterSt. [facility] Hospital08-10-[address] [facility] [facility] History of Present illness Narrative* Ofe Garcia APRN.NARCOTICS AND VICE DETECTIVE - 11/29/2023 4:05 PM EDT Maribell is a 57 year old who presents for an annual gynecologic exam with complaints, worsen of rectocele . Postmenopausal: Yes HRT use: Yes, patch Last Pap: 11/29/2018 normal HPV: 11/26/2018 negative History of abnormal pap: Yes Last mammogram: 2022 normal History of abnormal mammogram: No Sexually active: Yes OB History T6 L6 SAB0 IAB0 Ectopic1 Multiple0 Live Births6 Comment: menarche 12 FFTP 15 menopause age 43 Medical Coding Technician History LMP: 03/10/2010, Postmenopausal Age at Menarche: Age at First : Age at Menopause: Medical Coding Technician History Comments: Sexual Activity: Not Currently; Male Contraception: Tubal Ligation PAST MEDICAL HISTORY No date: Abdominal pain, chronic, right upper quadrant No date: Asthma Comment: As a baby, then I outgrew it. 05/13/2009: Cystocele, midline 09/27/2014: Delayed emergence from anesthesia No date: Depression No date: Excessive or frequent menstruation Comment: Heavy periods No date: GERD (gastroesophageal reflux disease) No date: History of Graves' disease 10/21/2011: HSDD No date: Hypothyroidism Comment: thyroid ablation/hypothyroid No date: Irregular menstrual cycle Comment: Irregular periods 2010: menopause age 43 Comment: in 2012 FSH 47 2002: Moderate dysplasia of cervix 03/07/2013: Parent-child conflict 05/13/2009: Rectocele No date: SVT (supraventricular tachycardia) ([facility]) Comment: Has seen cardiology at OSH, many episodes of fast heart rate are actually sinus tachycardia 05/14/2013: Syncope Comment: -Reported that she had one episode of [...] (stress echo). No significant change. - Tele No date: Tobacco use No date: Weight gainPAST SURGICAL HISTORY 04/2017: COLONOSCOPY Comment: says pancho 2001: CONIZATION CERVIX W/WO D&C RPR ELTRD EXC Comment: LEEP-Cervix 01/22/2014,2009: ESOPHAGOGASTRODUODENOSCOPY TRANSORAL DIAGNOSTIC Comment: EGD 05/19/2011: LAPAROSCOPY SURG CHOLECYSTECTOMY 2004: LIG/TRNSXJ FLP TUBE ABDL/VAG APPR UNI/BI Comment: Tubal ligation 09/2014: OOPHORECTOMY PARTIAL/TOTAL UNI/BI Comment: laparoscopic left, CW, umbilical/upper abdominal adhesions seen benign 1999: PAST SURGICAL HISTORY OF Comment: tubal 2002: PAST SURGICAL HISTORY OF Comment: thyroid ablation FAMILY HISTORY Problem Relation Age of Onset Diabetes Mother Type 2 stroke Colon Cancer Father age 64 [place] Diabetes Father Type 2 Hypertension Father Coronary Artery Disease Father Hx of [place] Thyroid Sister hx of parathyroid disease/ hx [...] retraction Allergies and current medication updated:Yes EXAM: BP 146/88 Ht 5' 2.5 (1.59m) Wt 211 lb (95.7kg) LMP 03/10/2010 BMI 37.95 kg/(m^2). GENERAL: pleasant, female in no apparent distress [...] external genitalia normal, normal Bartholin's glands, urethra, [place]'s glands, no vulvar lesions, no cervical lesions, physiologic discharge present, normal appearing perineal body and perianal region, cystocele 2nd degree, rectocele 2nd degree BIMANUAL: uterus normal size, shape and consistency, no adnexal masses, and non-tender RECTOVAGINAL: deferred. NEURO: alert and oriented x3,exam grossly non-focal EXTREMITIES: normal ASSESSMENT/PLAN: 1) Health maintenance: Pap done with HPV. Mammogram ordered Nutrition, exercise and routine health maintenance exams reviewed. Calcium/Vitamin D supplementation information provided. 2) Follow up one year or sooner as needed Has an appt with Dr Perico Garcia APRN.NARCOTICS AND VICE DETECTIVE documented in this encounterSt. [facility] History of Present illness Narrative* Freddy Nava MD - 11/16/2023 2:40 PM EDT Patient presents with: Follow Up HPI: Patient presents today for office visit for follow up. A1c 6.3 Started in Metformin 750 mg daily at last OV with Mague Adkins. She now has the diagnosis of dm based on non fasting glucose noted in the past over 200. Has not started med yet. Worried about side effects. Was on metformin in past and she states it caused low BS readings. US showed small stable right ovarian cyst. No acute findings or abnormalities. CT urogram normal. She is thinking about holding off on her umbilical hernia. It is no longer hurting her. She is still having some lower abd pain and is worried about pelvic floor dysfunction. She is seeing urogyn, Dr. Mcallister soon. She is actually feeling ok on the estradiol!!! They are starting her testim soon. Is also slynd. This actually as good as she has felt while she has been dealing with her hormones. No chest pain or new shortness of breath. Her tsh has been good, however, we anticipate it may change as her hormones change. Will follow it. MEDICATIONS: Current Outpatient Medications Medication Sig testosterone (TESTIM) 50 mg/5 g (1%) gel Dispense 30 tubes (not packets). Put 1 tube in a 5 cc syringe and use half cc a day (5mg daily). Apply to vulva. 1 tube should last 10 days. cholecalciferol (VITAMIN D3) 1,000 unit tab tablet Take 1 tablet by mouth once daily. metFORMIN ER (GLUCOPHAGE XR) 750 mg 24 hr tablet Take 1 tablet by mouth daily with breakfast. Estradiol (ESTROGEL) 1.25 gram/actuation glpm 1 application as directed. 1 PUMP TWICE DAILY. APPLY THIN LAYER TO ARM FROM WRIST TO SHOULDER. 1 yr of refills Nizatidine (AXID) 150 mg capsule Take 1 capsule by mouth two times a day. drospirenone, contraceptive, (SLYND) 4 mg (28) tabet Take 1/2 pill daily. Noncontraceptive purpose.Please apply company discount, process as self-pay if [...] (CPD) Apply 0.1ml to vulva twice daily albuterol HFA (PROVENTIL HFA) 90 mcg/actuation inhaler [...] 2 stroke Colon Cancer Father age 64 ND Diabetes Father Type 2 Hypertension Father Coronary Artery Disease Father Hx of [place] Thyroid Sister hx of parathyroid disease/ hx [...] past medical history, surgical history, family history andsocial history today. REVIEW OF SYSTEMS All other reviewed and negative other than HPI. HEALTH MAINTENANCE: Reviewed health maintenance issues today and recommended the following in detail. Dilated Retinal Exam -discussed. Diabetic Foot Exam Never done Shingrix Vaccine(1 of 2) Never done Lung Cancer Screening due on 04/23/2017 Urine Albumin:Creatinine Ratio due on 12/10/2018 Cervical Cancer Screening-scheduled. VITALS: BP 130/82 Pulse 85 Ht 157.5 cm (5' 2) Wt 95.3 kg (210 lb) LMP 03/10/2010 SpO2 93% BMI 38.41 kg/m Last 4 Encounter Wt Readings: Date: Wt: 10/14/2023 96.2 kg (212 lb) 09/24/2023 95.8 kg (211 lb 3.2 oz) 09/13/2023 95.7 kg (211 lb) 08/30/2023 95.7 kg (211 lb) PHYSICAL EXAMINATION: General appearance: Well appearing, alert, in no acute distress, well-hydrated, well nourished. Skin: Skin color, texture, turgor normal, no suspicious rashes or lesions Head: Normocephalic, no masses, lesions, tenderness or abnormalities Lungs: Lungs clear to auscultation. No wheezing, rhonchi, rales Heart: RRR without murmur, gallop, or rubs. No ectopy Abdomen: Normal abdominal exam, Abdomen soft, non-tender. Bowel sounds normal. No masses, organomegaly Feet:Shoes and socks removed, No deformities, ulcers, calluses, normal distal pulses, and sensitiveto 10 gm monofilament ASSESSMENT/PLAN: 1. Postablative hypothyroidism - ICD9: 244.1, ICD10: E89.0 (primary diagnosis) - follow hormone levels as endo adjusts things. - THYROID STIMULATING HORMONE 2. Controlled type 2 diabetes mellitus without complication, without long-term current use of insulin (HCC) - ICD9: 250.00, ICD10: E11.9 - stable.will hold on metformin after our discussion. Work on diet. Will follow in three months andfollow up after the labs. - ALBUMIN/CREATININE RATIO, URINE Freddy Nava MD documented in this encounterSt. [facility]07[facility] Telephone encounter Note * Telephone Encounter - Vidya Hughes - 11/09/2023 2:52 PM EDT Contacted patient in regards to below message Patient stated she is having further testing at [facility] with the last est being on 11/24/2023 to confirmpain and hernia. Patient stated she may call back to reschedule once her and her care team is confident its from the hernia. Case message sent to [place] to cancel and place case on hold until we hear back Vidya Hughes Soakers Supervisor [facility] Miscellaneous Notes* Telephone Encounter - Vidya Hughes - 11/09/2023 2:52 PM EDT Contacted patient in regards to below message Patient stated she is having further testing at [facility] with the last est being on 11/24/2023 to confirmpain and hernia. Patient stated she may call back to reschedule once her and her care team is confident its from the hernia. Case message sent to [place] to cancel and place case on hold until we hear back Vidya Hughes Soakers Supervisor * Telephone Encounter - Carlee Cortez RN - 11/09/2023 2:20 PM EDT Patient calling in to cancel her upcoming hernia surgery on 11/24/23. States that she is having further testing done to be ceratin that is what is causing the pain. She states that if they find out itis truly what is causing her pain she will call back and reschedule. documented in this encounterSt. [facility]07-[facility] Telephone encounter Note * Telephone Encounter - Carlee Cortez RN - 11/09/2023 2:20 PM EDT Patient calling in to cancel her upcoming hernia surgery on 11/24/23. States that she is having further testing done to be ceratin that is what is causing the pain. She states that if they find out itis truly what is causing her pain she will call back and reschedule. [facility] Telephone encounter Note* Telephone Encounter - Maribell Garcia MA - 11/04/2023 1:14 PM EDT Patient notified of results. She states that she is going to the emergency room due to the pain since nothing was determined on scan. Maribell Garcia MA November 04, 2023 1:[address] [facility] Miscellaneous Notes* Telephone Encounter - Maribell Garcia MA - 11/04/2023 1:14 PM EDT Patient notified of results. She states that she is going to the emergency room due to the pain since nothing was determined on scan. Maribell Garcia MA November 04, 2023 1:15 PM * Telephone Encounter - Maribell Garcia MA - 11/04/2023 1:10 PM EDT Please let pt. Know that CT urogram was normal. Remember to drink 64 oz. Of water daily to flush her kidneys. No cause for blood in urine? Results from Provider on another encounter by error documented in this encounterSt. [facility]07-[facility] Telephone encounter Note * Telephone Encounter - Maribell Garcia MA - 11/04/2023 1:10 PM EDT Please let pt. Know that CT urogram was normal. Remember to drink 64 oz. Of water daily to flush her kidneys. No cause for blood in urine? Results from Provider on another encounter by error [facility] History of Present illness Narrative* Jannet Abdi RT(R) - 11/03/2023 11:00 AM EDT Radiology Service Progress Note DATE OF SERVICE: November 03, 2023 TIME: 4:17 PM PATIENT IDENTITY VERIFICATION COMPLETED USING TWO [...] PATIENT RELEVANT IMPLANT DATA REVIEWED: Not Applicable PATIENT PRESENTS WITH AN IMPLANTABLE OR ATTACHED INSTALLATION TECH: No ALLERGIES: Reviewed and unchanged CONTRAST ALLERGY: NO. EXAM: CT -CONTRAST INDUCED NEPHROPATHY RISK FACTORS: Not applicable CREATININE: Creatinine Date Value Ref Range Status 10/26/2023 0.78 0.58 - 0.96 mg/dL Final 10/15/2023 0.80 0.58 - 0.96 mg/dL Final 07/09/2023 0.74 0.58 - 0.96 mg/dL Final Estimated Glomerular Filtration Rate Date Value Ref Range Status 10/26/2023 89 >=60 mL/min/1.73m Final Comment: Estimated Glomerular Filtration Rate (eGFR) is calculated using the 2020 CKD-EPI creatinine equation. This equation utilizes serum creatinine, sex, and age as parameters. The creatinine assay has traceable calibration to isotope dilution- mass spectrometry. Refer to KDIGO guidelines for clinical interpretation. In patients with unstable renal function, e.g. those with acute kidney injury, the eGFRmay not accurately reflect actual GFR. eGFR- Date Value Ref Range Status 04/24/2021 >60 Final P.O.C.T. RESULTS: POC done: Yes, See Lab Tab November 03, 2023 TREATMENT: N/A PERIPHERAL IV DATA: Ambulatory: A peripheral IV was started in the Left antecubital site with a Angio cath: 22 gauge. RADIOLOGY DEPARTMENT: CT; Exam(s) Completed: Urogram SIGNATURE: RT Camilo(R) PATIENT NAME: Maribell Garzon DATE: November 03, 2023 TIME: 4:17 PM documented in this encounterSt. [facility]07-10-[facility]24 History of Present illness Narrative* Paul Duron MD - 11/03/2023 8:36 AM EDT I spent a total of 40 minutes on the date of the service which included preparing to see the patient, [id number] patient care, completing clinical documentation, obtaining and/or reviewing separately obtained history, counseling and educating the patient/family/caregiver, ordering medications, inocencio ts, or procedures, and independently interpreting results (not separately reported). My name and active licensure communicated. The patient's identity and physical location were verified at the time of this visit. Either the patient or their legal high school admissions representative has been informed of the risks and benefits of -- and alternatives to -- treatment through a remote evaluation and consents to proceed with the evaluation remotely. * Paul Duron MD - 11/03/2023 7:55 AM EDT Virtual visit, November 03, 2023 Start review of records, labs, interim events 7:55 AM Maribell Garzon is 57 year old. I have been seeing her since 11/[address] Angelo for hormonal concerns. 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 Has had hormonal sensitivities throughout her life, difficulty tolerating any hormonal regimens. Profound PMS symptoms: heart racing, dizzy, muscle tension within 12 hours prior her cycle starting. Within 2 min of bleeding the sxs would resolve, this would occur consistently. States essentially had been in a chair since age 50. Hx of ovarian cysts and likely PCOS (always felt better with high androgens), s/p left oophorectomy for benign reasons (path reviewed). LMP in 2009, age [age]. Lab confirmed menopause-soon after gynecologic surgery. Debilitating symptoms since surgery, disabled from work, unable to drive. When in menopause many of the symptoms that she would experience premenstrually got much worse. Including arthralgias, told FM, she did notbelieve diagnosis. Anxiety was bad, tried multiple meds. Dry eyes, severe. Burning mouth (goes awaycompletely with the ET). Brain fog. Has been seeing medical providers for multiple concerns. Is hete rozygous for MTHFR mutation, never had a VTE with 6 pregnancies. Did see hematology who said can use estrogen, but prefer transdermals. She has also been dealing with hyperthyroidism.Got her COVID shot around 02/13 and multiple medical issues latter 2020 which she also feels impacted her hormones. 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 We have been trying to get her to tolerate the E2 and P individually, though understands cannot use unopposed estrogen for prolonged periods for endometrial safety. Her prior doctors were offering compounded topical [...] past has varied during our different visits). We did discuss needing to give time prior to dose adjustments. Throughout 2021 got her to tolerate a progestin first (long history of progestin intolerance), and by 03/17 Slynd 1/4 of tab daily was working well for her. For the estrogen, some of the best tolerated w 0.3 ml bid of the biest (04/16) and inc to 1/2 pill of slynd (was feeling better with this dose, driving). Based on my calculation, she was getting approximately 1.2 mg of estradiol, as well as es triol. She was happy with the half pill of the Slynd (2 mg). Since she has always been high testosterone in the past, prior to her surgery, she felt strongly that testosterone replacement will help her best-we were waiting to optimize the estrogen dosing before finalizing decision on trying additional testosterone options outside of below (more dilute dosing so that she can use more frequently (as she had the same issues with the crashing of hormone levels throughout the 24 hours if testosterone used once daily). However has noticed hair loss (prior to use of any testosterone)-discussed mayexacerbate. She has had a lot of setbacks in terms of being able to get her hormones due to cost and compounding pharmacy delays. ........ Previously tried/offered: -Depoprovera couldn't walk. -OCPs multiple sxs of panic/heart racing rushing noises in ear (bathroom fan would sound like an airplane). -Antianxiety medications-tried multiple -Vivelle- too stimulated, even on the 25-50 mcg, q 2-3.5 days. Dose was increased to 50 which helped better with sxs, but legs would swell. Tried 4-6 wks for each. feels heart racing when the estrogen seems to be dropping. Within 2 hours of coming off the patch her HR would come down. 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 Saw cards and EP- told heart is not the problem, but a symptom of what is going on. Came off after 3 days, also felt drunk and dizzy with it. Took 1 mo for the drunken dizzy sensation to goaway. -estrogel- did ok initially, felt Better with twice a day, but at the higher dose legs would swell.3 wks between dose adjustments, she did not like the fact that her HR would go up when waiting 24 hours between doses (felt that she was metabolizing the estrogen quickly). -Divigel start with quarter or less of the packet daily, and slowly move up to the full dose as tolerated-cost prohibitive -Bi est-liked in past, she felt like it was too much. The pharmacist was managing. 3 mg E2/0.5 of E3, she didn't feel comfortable with the way the pharmacist wanted to change the dosing. She felt that it was too E2 heavy. -Biest 08/15 rxed from us, 1 Click 0.25 g (which we typically use for vaginal local low-dose therapy) of the cream and pickle sorter a 1 mL syringe, start with use of 0.1 mL at a time, which she can use twice daily or 3 times daily if even needed. tried for 2 days, because had difficulty with the syringe so she tried the full dose of the 1 click instead.- also limited insurance coverage. The heart started racing and fluctuation symptoms. Was not clear which when she tolerated the best, spoke with our compounding pharmacy. 5 mg dose, which would be dispensed in 1 mL syringes, so that she can use 0.1-0.2 mL, 2-3 times a day as tolerated. -Estratest and NET 0.[address] Trevino- kicked up GERD which she felt pushed into an asthma attack -Prometrium 100 made her feel drunk and dizzy. Tried vaginally too, but bladder spasm. Progesteronecompounded transdermally after 20 mg starts getting similar symptoms (by OSH doctor) -Estradiol p.o. 3 days into crying for no reason (although dr Trevino's notes says this was with FemHRT) -No progestin that she has been able to tolerate until the Slynd,however she does sleep better withthe Prometrium. -Mirena: daughter got hives, and it took a week for someone to remove it, nervous about anything that is not patient controlled. -Testosterone compounded 04/16, goal of 1 mg twice daily-limited by being able to get it quickly atpharmacy. INTERIM UPDATE 07/28/2023: At her 04/17 appointment she was Still on 1/4 pill of Slynd, just received the Estrogel that day (got from [employer]). She had felt best with EstroGel 1 pump twice daily in the past. Plan was also that she would increase her Slynd from quarter pill to half pill around the same time period. We'll determine in the future if needing to start on testosterone based on how she is feeling, which would be 1/10 of Testim (though based on recent testosterone levels limited in how far we can go with dosing). Unfortunately she wasn't able to get any refills on her EstroGel after a few months, but had been feeling better. When using twice a day, the 50 g lasted a little over a month. Prescription refill provided for 1 year of the EstroGel 1 pump twice a day. She is still on the quarter pill of Slynd. She is not sure if she wants to increase to the half pill. Discussed at the quarter pill need to closely watch endometrium, as this has not been studied in combination with adequate estrogen dosing. Based on how she does at the follow-up, can discuss Testim at that time. Questions answered. May benefit from menopause SMA. She will be seeing for her annual 12/17. Discussed that she should be seen yearly for annual preventive visit, regardless of if Pap is needed. I can continueto see her virtually, but will need to see her in person within 2-3 years. INTERIM UPDATE 11/03/2023: Has upcoming appointment scheduled 11/24/2023 for ventral hernia repair- plans on cancelling. She had a visit with medical genetics at , and limited testing was recommended-no pharmacogenetics evaluation. Plan was to do Fragile X testing because of history of premature menopause (although patient had early menopause, not premature) recognizing that testing unlikely to case management associate. Was recommended to do a gene panel for common hereditary cancer genes. Back on the estrogel now for 2-3 wks. The first few days felt great- muscles functioning, feeling like herself. Then starts to feel unwell again. Within 30 min of putting, on feels 'done' for 4 hrs brain fog etc. But overall still feels better with the estrogen than without it. She also wonders whether it contributes to hot flashes within the first hour of putting on, which she normally does not get. She will be seeing a urogynecologist for possible prolapse soon, and has her coding technician annual scheduled next month. PAST HISTORY (reviewed and updated): OB History T6 L6 SAB0 IAB0 Ectopic1 Multiple0 Live Births6 Comment: menarche 12 FFTP 15 menopause age 43 ACTIVE PROBLEM LIST Postablative Hypothyroidism hx of low vitamin D Panic Disorder With Agoraphobia Chronic Fatigue Syndrome With Fibromyalgia Blood Pressure Elevated Without History of Htn Impaired Glucose Tolerance Svt (Supraventricular Tachycardia) (Hcc) Ptsd (Post-Traumatic Stress Disorder) Attention Deficit Hyperactivity Disorder (Adhd), Combined Type Recurrent Major Depressive Disorder, in Partial Remission ([facility]) menopause age 43 Tobacco Use Gerd Without Esophagitis Simple Chronic Bronchitis ([facility]) Irritable Bowel Syndrome With Diarrhea Burning Sensation of Mouth Burning Sensation of Skin Sleep Difficulties Mitral Valve Prolapse Estrogen Deficiency Adrenal Adenoma, Left Andressa (Obstructive Sleep Apnea) Nocturnal Oxygen Desaturation 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) Cyp2c9 Intermediate Metabolizer (Hcc) [id number] Rapid Metabolizer (Hcc) [id number] Intermediate Metabolizer ([facility]) Heterozygous Factor V Leiden Mutation ([facility]) Hormone Deficiency Menopausal and Perimenopausal Disorder Mood Change Diabetes Mellitus Type 2, Controlled, Without Complications ([facility]) Myalgia Autonomic Dysfunction Muscle Weakness PAST MEDICAL HISTORY Diagnosis Date Abdominal pain, [...] conflict 03/07/2013 Rectocele 05/13/2009 SVT (supraventricular tachycardia) ([facility]) Has seen cardiology at OSH, many [...] 2 stroke Colon Cancer Father age 64 [place] Diabetes Father Type 2 Hypertension Father Coronary Artery Disease Father Hx of [place] Thyroid Sister hx of parathyroid disease/ hx [...] History Social History Narrative She lives in [place] [address] 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 I spoke with the genetics team, relevant info in 06/16 note. US 07/14: left oophorectomy, 4 mm endometrium, nl Cotesting 12/12 normal Last 10 Encounter BP Readings: Date: BP: 10/14/2023 128/86 09/24/2023 144/99 09/13/2023 140/96 07/28/2023 151/91 07/07/2023 132/86 06/18/2023 132/82 05/31/2023 124/92 08/06/2022 142/82 06/17/2022 122/78 02/20/2022 132/80 Lab Results Component Value Date TSH 0.928 10/15/2023 TSH 2.080 06/15/2023 TSH 0.771 05/21/2023 TSH 1.060 10/02/2022 TSH 0.61 08/03/2022 TSH 1.580 05/25/2022 B12 509 10/15/2023 B12 506 07/16/2020 B12 483 09/06/2019 B12 576 03/22/2019 B12 683 12/01/2017 B12 622 01/27/2017 VITD25 24.8 (L) 10/15/2023 VITD25 43.6 07/09/2023 VITD25 11.3 (L) 05/21/2023 VITD25 35.8 08/01/2021 VITD25 16.2 (L) 05/26/2021 VITD25 17.2 (L) 05/20/2020 HB 15.2 05/21/2023 HB 15.2 10/02/2022 HB 15.6 (H) 06/17/2022 HB 15.7 (H) 05/25/2022 HB 15.6 (H) 12/31/2021 HB 15.7 (H) 04/24/2021 SARAY 222.0 (H) 10/15/2023 SARAY 142.0 09/06/2019 SARAY 168.8 06/23/2017 SARAY 172.8 01/27/2017 WBC 10.99 05/21/2023 WBC 10.96 10/02/2022 WBC 11.46 (H) 06/17/2022 WBC 12.95 (H) 05/25/2022 WBC 10.49 12/31/2021 WBC 10.20 04/24/2021 PLT 268 05/21/2023 PLT 288 10/02/2022 PLT 298 06/17/2022 PLT 287 05/25/2022 PLT 314 12/31/2021 PLT 275 04/24/2021 CREAT 0.78 10/26/2023 CREAT 0.80 10/15/2023 CREAT 0.74 07/09/2023 CREAT 0.76 05/21/2023 CREAT 0.78 05/25/2022 CREAT 0.83 12/31/2021 CA 9.3 10/26/2023 CA 9.4 07/09/2023 CA 9.1 05/21/2023 CA 9.1 05/25/2022 CA 9.9 12/31/2021 CA 9.1 04/24/2021 K 4.1 10/26/2023 K 4.1 07/09/2023 K 4.1 05/21/2023 K 3.9 05/25/2022 K 4.7 12/31/2021 K 3.7 04/24/2021 MG 2.0 07/09/2023 MG 1.8 04/24/2021 MG 1.9 05/20/2020 MG 2.1 12/19/2018 MG 2.0 03/09/2018 MG 2.2 11/10/2017 NA 139 10/26/2023 NA 137 07/09/2023 NA 136 05/21/2023 NA 137 05/25/2022 NA 139 12/31/2021 NA 138 04/24/2021 AST 31 07/09/2023 AST 45 (H) 06/15/2023 AST 41 (H) 05/21/2023 AST 22 05/25/2022 AST 26 12/31/2021 AST 22 04/24/2021 ALT 58 (H) 07/09/2023 ALT 75 (H) 06/15/2023 ALT 63 (H) 05/21/2023 ALT 33 05/25/2022 ALT 41 (H) 12/31/2021 ALT 35 04/24/2021 HBA1C 6.3 (H) 10/15/2023 HBA1C 6.3 (H) 05/21/2023 HBA1C 6.1 (H) 05/25/2022 HBA1C 5.9 (H) 12/31/2021 HBA1C 6.0 (H) 05/09/2021 HBA1C 6.0 (H) 12/11/2020 GLUC 169 (H) 10/26/2023 GLUC 145 (H) 07/09/2023 GLUC 107 (H) 05/21/2023 GLUC 143 (H) 05/25/2022 GLUC 81 12/31/2021 GLUC 154 (H) 04/24/2021 LDL 91 10/15/2023 LDL 68 12/04/2019 LDL 81 12/10/2017 LDL 77 11/09/2016 LDL 69 10/21/2011 TG 96 10/15/2023 TG 102 12/04/2019 TG 67 12/10/2017 TG 49 11/09/2016 HDL 40 10/15/2023 HDL 37 (L) 12/04/2019 HDL 34 (L) [...] 06/15/2019 PROG 0.2 01/25/2017 PROG 0.3 08/03/2014 HQTIL35I <25 05/20/2020 CRFOA51H <25 12/04/2019 JPJFL66J <25 09/06/2019 [id number] <25 08/16/2019 VHYTV28L 46 07/21/2019 [id number] <25 06/15/2019 SHBG 86 02/02/2023 SHBG 10/06/2011 57 Unit: nmol/L (NOTE) -- REFERENCE VALUE -- 18-144 (non-) Test performed by: [facility], [place], [place], unless otherwise specified above. TESTT 23 02/02/2023 TESTFREE 2.1 02/02/2023 TESTFREE 0.34 05/20/2020 TESTFREE 0.22 12/04/2019 TESTFREE 0.25 09/06/2019 TESTFREE 0.22 08/16/2019 TESTFREE 0.42 06/15/2019 DHEAS 22.7 (L) 06/15/2019 DHEAS 25.7 (L) 12/12/2018 DHEAS 30.8 (L) 01/03/2018 DHEAS 37.4 12/10/2017 DHEAS 32.1 (L) 09/08/2017 DHEAS 21.8 (L) 11/21/2016 PROL 11.0 11/21/2016 PROL 4.8 01/14/2012 PROL 4.1 10/05/2006 Testosterone Date Value Ref Range Status 05/20/2020 31 8 - 60 ng/dL Final Comment: (NOTE) ADDITIONAL INFORMATION Testing performed by Liquid Chromatography-Tandem Mass Spectrometry (LC-MS/MS). This test was developed and its performance characteristics determined by [facility] in a manner consistent with CLIA requirements. This test has not been cleared or approved by the U.S. Food and Drug Administration. 12/04/2019 20 8 - 60 ng/dL Final Comment: (NOTE) ADDITIONAL INFORMATION Testing performed by Liquid Chromatography-Tandem Mass Spectrometry (LC-MS/MS). This test was developed and its performance characteristics determined by [facility] in a manner consistent with CLIA requirements. This test has not been cleared or approved by the U.S. Food and Drug Administration. 09/06/2019 23 8 - 60 ng/dL Final Comment: (NOTE) ADDITIONAL INFORMATION Testing performed by Liquid Chromatography-Tandem Mass Spectrometry (LC-MS/MS). This test was developed and its performance characteristics determined by [facility] in a manner consistent with CLIA requirements. This test has not been cleared or approved by the U.S. Food and Drug Administration. 08/16/2019 22 8 - 60 ng/dL Final Comment: (NOTE) ADDITIONAL INFORMATION Testing performed by Liquid Chromatography-Tandem Mass Spectrometry (LC-MS/MS). This test was developed and its performance characteristics determined by [facility] in a manner consistent with CLIA requirements. This test has not been cleared or approved by the U.S. Food and Drug Administration. 06/15/2019 30 8 - 60 ng/dL Final Comment: (NOTE) ADDITIONAL INFORMATION Testing performed by Liquid Chromatography-Tandem Mass Spectrometry (LC-MS/MS). This test was developed and its performance characteristics determined by [facility] in a manner consistent with CLIA requirements. This test has not been cleared or approved by the U.S. Food and Drug Administration. 12/12/2018 See Comment <40 ng/dL Final Comment: The total testosterone result is 20 ng/dL, the reference range of [facility] is 8 to 60 ng/dL. Disregard [facility] reference range. Interpret the result using the reference range provided by the performing laboratory. Results should not be compared to previously reported results using [facility]'s assay due to differences in methodology. Test performed by: [facility], [place], [place] Testing performed by Liquid Chromatography Tandem Mass Spectrometry. 07/27/2018 30 <40 ng/dL Final 05/17/2018 19 <40 ng/dL Final 01/03/2018 29 <40 ng/dL Final 09/08/2017 39 <40 ng/dL Final Last Bone Density No resulted procedures found. Last Screening Mammogram [facility] SCREENING Exam End: 07/01/2022 2:50 PM (Final result) Narrative: * * *Final Report* * * DATE OF EXAM: Jul 01 2022 2:50PM [facility] [id number] - [facility] SCREENING / PROCEDURE REASON: Encounter for screening mammogram for breast cancer * * * * Physician Interpretation * * * * RESULT: #[id number] - [facility] SCREENING BILATERAL DIGITAL SCREENING MAMMOGRAM WITH CAD: 07/01/2022 HISTORY: Encounter For Screening Mammogram For Breast Cancer. RESULT: TECHNIQUE: The study was acquired using full field digital technology and interpreted from soft copy. Current study was also evaluated with a Computer Aided Detection (CAD). Comparison is made to exams dated: 06/16/2019 mammogram and 12/24/2015 mammogram - [facility]. There are scattered fibroglandular elements in both breasts. No significant masses, calcifications, or other findings are seen in either breast. There has been no significant interval change. Impression: IMPRESSION: NEGATIVE There is no mammographic evidence of malignancy. A 1 year screening mammogram is recommended. The exam was reviewed by a staff physician. Ruslan Perez M.D. rs,michael/chaurad:07/01/2022 15:25:18 Svp Of Digital(s): RT Hudson(R)(M), [facility] letter sent: Normal over 40 Mammogram BI-RADS: [...] Health, Family Medicine, and Medical/Surgical Oncology, the [facility] has carefully reviewed the data and [...] their providers when to stop screening mammograms. Lap Winding Machine Operator: Mahamed Transcribe Date/Time: Jul 01 2022 1:57P Dictated by: HAZEL PEREZ MD This examination was interpreted and the report reviewed and electronically signed by: RUSLAN SIMONS MD on Jul 01 2022 3:25PM EST Last Diagnostic Mammogram MAMMOGRAM DIAGNOSTIC MARIA A Collected: 12/24/2015 9:54 AM (Final result) Narrative: * * *Final Report* * * DATE OF EXAM: Dec 24 2015 9:54AM W [id number] - [facility] DIG DIAG CAD MARIA A - BILATERAL / PROCEDURE REASON: Mastodynia * * * * Physician Interpretation * * * * RESULT: #[id number] - [facility] DIG DIAG CAD [facility] A BILATERAL DIGITAL DIAGNOSTIC MAMMOGRAM WITH CAD: 12/24/2015 HISTORY: Mastodynia Bilateral/Palpable lump left axilla /Priors available for comparison. RESULT: TECHNIQUE: The study was acquired using full field digital technology and interpreted from soft copy. Current study was also evaluated with a Computer Aided Detection (CAD). Comparison is made to exam dated: 06/07/2013 mammogram - [facility]. There are scattered fibroglandular elements in both breasts. There are benign lymph nodes in both breasts. No significant masses, calcifications, or other findings are seen in either breast. BENIGN There is no mammographic evidence of malignancy. #[id number] - US BREAST INCL AXILLA LTD ULTRASOUND OF LEFT BREAST: 12/24/2015 RESULT: Comparison is made to exam dated: 06/07/2013 mammogram - [facility]. Ultrasound of the left breast was performed. [...] identified. No interval change. Sanjay camacho/mahamed:12/24/2015 10:46:16 Svp Of Digital: Aline TAYLOR(R)(M), [facility] letter sent: Normal clinical eval OVERALL STUDY BIRADS: 2 Benign Lap Winding Machine Operator: Mahamed Transcribe Date/Time: Dec 24 2015 9:34A [...] Physician Interpretation * * * * RESULT: #[id number] - [facility] DIG DIAG CAD MARIA A BILATERAL DIGITAL DIAGNOSTIC MAMMOGRAM WITH CAD: 12/24/2015 HISTORY: Mastodynia Bilateral/Palpable lump left axilla /Priors available for comparison. RESULT: TECHNIQUE: The study was acquired using full field digital technology and interpreted from soft copy. Current study was also evaluated with a Computer Aided Detection (CAD). Comparison is made to exam dated: 06/07/2013 mammogram - [facility]. There are scattered fibroglandular elements in both breasts. There are benign lymph nodes in both breasts. No significant masses, calcifications, or other findings are seen in either breast. BENIGN There is no mammographic evidence of malignancy. #[id number] - US BREAST INCL AXILLA LTD ULTRASOUND OF LEFT BREAST: 12/24/2015 RESULT: Comparison is made to exam dated: 06/07/2013 mammogram - [facility]. Ultrasound of the left breast was performed. [...] identified. No interval change. Sanjay camacho/mahamed:12/24/2015 10:46:16 Svp Of Digital: Aline TAYLOR(Lisa)(Anushka), [facility] letter sent: Normal clinical eval OVERALL STUDY BIRADS: 2 Benign Lap Winding Machine Operator: Mahamed Transcribe Date/Time: Dec 24 2015 9:34A Dictated by : SANJAY BROWN DO This examination was interpreted and the report reviewed and electronically signed by: SANJAY BROWN DO on Dec 24 2015 10:46AM EST PLAN: The following diagnoses were relevant to this visit: (N95.1) Symptomatic menopausal or female climacteric states (primary encounter diagnosis) (M79.10) Myalgia (G90.9) Autonomic dysfunction (M62.81) Muscle weakness Current regimen is EstroGel 1 pump, Slynd quarter pill daily. Reinforced prior discussions, hold off on rapid dose increases and allow body to adjust. It seems less likely that the estrogen would be contributing to her VMS in the first hour of application, but I think some sort of autonomic dysfunction potentially may be triggering symptoms. She is open to the idea of giving things more time. Because she had previously expressed being hesitant to increase the Slynd (though previously well-tolerated), I would favor next step would be to add the testosterone (as this is been the patient's wishes well), as opposed to increasing the estrogen any further. She is agreeable. Will proceed with 5 mg daily testosterone topically as prescribed-via [employer] (reviewed R/SE/Ins). She will not start this until mid December to allow her body to adjust to the estrogen dosing. I was able to grab an appointment on 01/19 at 8:30 AM virtually for follow-up. She will need LFTs ordered at that visit if continuing the testosterone. No orders found for this visit on 11/03/23. Paul Duron MD Call if any discussed symptoms not better or worse. Note dictated using voice recognition software. [facility] History of Present illness Narrative* Ly Pérez MD - 11/02/2023 1:00 PM EDT MEDICAL GENETICS INITIAL VISIT NOTE Patient full name: Maribell Garzon Date of : 1965 Present during this visit: The patient Primary care/referring provider: Freddy Nava MD Medical history was obtained from the patient. Prior to this appointment, I reviewed medical records from outpatient medical records and scanned documents, if available. History of present illness: Dear Dr. Nava: It was a pleasure to see Ms. Garzon in clinic today. Ms. Garzon is a 57 y.o. female who was referred to Genetics for complex health issues. Her medical diagnoses from chart review and interview include CFS/fibromyalgia, ANDRESSA, mitral valve prolapse (report of echocardiogram is not available), GERD, ADHD, fatty liver on imaging, umbilical/inguinal hernia, asthma, hyperthyroidism then hypothyroidism after treatment, h/o syncope, pre-DM, h/o ovarian cyst s/p cyst removal, protein S deficiency. She stopped having periods at 42 years of age. There was no period of irregular period. Was told she has early menopause. Has been on hormone replacement since. She has concerns re: hereditary angioedema. Has had allergic reactions, mostly with identified triggers. C4 levels were normal. She reports history of Arnold Chiari malformation. The last MRI of the brain (2017) showed minimal cerebellar tonsillar ectopia. 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 She also reports other congenital differences at the pelvic organ and KUB system (?double renal pelvis). However, subsequent CT scan of the abdomenand pelvis did not identify any congenital differences. She reports started having tooth issues (teeth just started to fall out) in her teens and needed touse ventures around 26-27 years old. Review of system: - Positive: early degenerative disc disease (in her 20s), blurred vision without previous ocular diagnoses (except hyperopia), burning all over, many episodes of fast heart rate, chronic fatigue, edema, brain fog, dysphagia, aspiration, reflux, occasional chest pain/dyspnea, constipation,diarrhea, depression/anxiety, chronic musculoskeletal pain, lifetime fractures fewer than 5 times (all associated with traumas/injuries), early-onset varicose veins (started in her 20s), and historical joint hypermobility. - Negative: Congenital differences at , bone deformity, neurodevelopmental disorders (autism, learning disability, significant developmental delays, intellectual disability), seizures, strokes. - Pediatric history: reports that she stayed in the hospital for 6 weeks after but the diagnoses are unknown. Reports that she needed to wear braces at leg until 4 yo but the diagnosis is unknown. 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 Family history: Five-generation family tree was obtained and scanned to chart, under Genetics folder. Pertinent history Brother is slow and has challenges. Nephew has lateral meningocele syndrome and its complications. Mom (77) h/o strokes 60s. Two maternal aunts (d) with breast ca in their 40s and stomach cancer in their 60s. Dad (d) CRC He had 13 sibs, all of them had GI cancers (likely CRC). No other family members with parkinsonism, severe intellectual disability, or premature menopause. Paternal side: ? Maternal side: ? Ashkenazi Yarsani: Denied Consanguinity: ?possible Physical examination: General: Alert. No acute distress. Well-nourished. Head and face: Normal head shape. Eyes: Normal positioned palpebral fissures. Intercanthal distance appears normal. Sclerae not blue.Eyelashes and eyebrows appear normal. Nose: Not dysmorphic Ears: Not dysplastic. Not low set or posteriorly rotated. Mouth: Normal lips and philthrum. Palate and uvula appear normal. Normal appearing teeth. Chin: Without micro-, retrognathia Neck: Not short. No excess nuchal skin fold. No webbed neck. Lungs and chest wall: Wheezing is present throughout. CVS: Regular rate and rhythm. No murmur. Extremities: Hands, feet, fingers and toes appear normal except mild 2nd/3rd toes syndactyly bilaterally. Multiple varicose veins at lower legs. Not edematous. No tenderness. Neurologic: EOMI without nystagmus. No ptosis. No facial palsy. Tongue in midline. No dysarthria. Normal gait without abnormal movement. Psychiatric: Cooperative. Appropriate mood and affect. Results: ALP - normal Echocardiogram report - not available US spleen 06/2023 IMPRESSION: Increase in echogenicity of the liver, likely secondary to hepatic steatosis. US pelvis 12/2021 IMPRESSION: Endometrium has ill-defined margins but without obvious mass measuring 0.69 cm transvaginally. Small fibroid uterine fundus anteriorly. Normal adnexa. CT abdomen/pelvis 12/2021 RESULT: Liver: No mass. Biliary: No bile duct dilation. The gallbladder is not visualized. Spleen: No mass. No splenomegaly. Pancreas: No mass or duct dilation. Adrenals: Slight prominence of the left adrenal gland however unchanged. Kidneys: There are a few low-attenuation lesions or cysts in the bilateral kidneys measuring up to 9 mm. No hydroureteronephrosis. GI tract: No dilation or wall thickening. The appendix is identified and normal in appearance. No diverticulitis. Lymph nodes: No abdominal or pelvic lymphadenopathy. Mesentery/Peritoneum: No ascites or mass or free abdominal air. Retroperitoneum: No mass. Vasculature: There are atherosclerotic calcifications in the abdominal aorta and its branches. The celiac artery, SMA, RANJEET and portal veins are patent. Pelvis: No mass, ascites or fluid collection. Bones/Soft Tissues: A few fat-containing umbilical/paraumbilical hernias are visualized with the largest one measuring 3 cm. The spine shows degenerative changes. Lower thorax: No pleural effusions. The lung bases are clear of consolidations. 09/28/2019 IMPRESSION: Diffusely heterogeneous uterus. 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 10/02/2017 The diffusion-weighted imaging is without evidence of [...] parenchymal edema or brain parenchymal signal abnormality. Assessment: ###Complex health issues Ms. Garzon has complex health issues as outlined above, particularly early teeth loss and premature menopause. Physical exam is without significant dysmorphic features. My suspicion for any genetic condition that would explain the constellation of her signs and symptoms is not high. She has a concern regarding hereditary angioedema (HAE), but the C4 levels were normal (checked several times). This makes HAE less likely. She reports history of Arnold Chiari malformation. The last MRI of the brain (2018) showed minimal cerebellar tonsillar ectopia. The final impression from that MRI was grossly unremarkable MRI. 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 She also reports other congenital differences at the pelvic organ and KUB system (?double renal pelvis). However, subsequent CT scan of the abdomen and pelvis did not identify any congenital differences. Many of her symptoms (such as chronic pain and brain fog) and diagnoses (such as ANDRESSA, GERD, ADHD, fatty liver) do not warrant genetic testing. 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 There is documented history of MVP. I requested that she fax the report of echocardiogram to my office. However, genetic testing could be considered given some signs suggestive of monogenic disorders. First, she has premature menopause, which could be caused by premature ovarian failure (POI). POI may be caused by mutations in several genes (PMID: 40975707) or Fragile X-Associated Primary Ovarian Insufficiency (FXPOI). Second, she has premature loss of teeth. Together with some systemic connective tissue features (hernias, cystocele/rectocele, historical joint hypermobility, early degenerative disc disease, early-onset varicose veins), this could be periodontal Michaela-Danlos syndrome (pEDS, C1S, C1R gene). She unlikely has hypophosphatasia as the cause of dental issues given normal ALP. I recommend exome sequencing to evaluate these features. Exome sequencing will allow for assessing all genes of the phenotypes described in this note, as well as all genes for HAE and connective tissue disorders. Exome sequencing targets the protein-coding regions (exons) of the approximately 20,000 genes in the genome. It is a powerful diagnostic tool, providing a definitive diagnosis in 20-50% of patients, depending on the phenotype. We reviewed [facility] Secondary Findings and Ms. Garzon would like to OPT IN receiving the findings, acknowledging that it may have implications for life insurance, long-term disability insurance, and intermediate insurance in the future. If negative, exome re-analysis is an option that would help increase diagnostic yield. I reviewed that obtaining duo exome (maternal sampleincluded) results in a higher diagnostic yield than proband-only exome. Benefits of having genetic test include 1) to establish a molecular diagnosis; 2) to provide further medical recommendations specific to each diagnosis; 3) for familial cascade testing, recurrence risk estimation, and family planning; and 4) to allow for participation in support group organizationsand enrolment in clinical trials, if any. Pretest genetic counseling was provided, including the nature of the test; three types of test result (positive, negative, and uncertain); the fact that a negative result does not exclude a possibility of genetic disorders; retention of de-identified genetic data at the testing company; Genetic Information Non-Discrimination Act (DANIELA); and incidental find ings including non-paternity and parental consanguinity. The patient provided a verbal informed consent. I reviewed that genetic diagnosis would less likely change the current management of her symptoms. [facility] does not provide recommendations related to pharmacogenetic findings.She has been seen by the [facility] in the past and should return to the providers if she has any questions. Plan: - Ms. Garzon to fax the report of echocardiogram to my office. - Fragile X analysis to rule out FXPOI - Duo exome sequencing through [facility]. TAT 3 months. Sample: blood obtained today. Insurance billing. [facility] Secondary Findings: opt-in. - I instructed her to discuss with her mother and let me know if she would like to submit her sapmle as well as if she would like to receive the Secondary Findings. - Mother: Anisa Lambert, 07/15/1946, same address. ###Family history of cancers Ms. Garzon has several family members on paternal side with CRC and early-onset breast cancer and gastric cancer in two maternal aunts. We discussed concept of cancer predisposition syndromes. Lifetime risk of cancer in general population is 1/3. Approximately 5%-10% of cancer is caused by a pathogenic variants in cancer predisposition genes. Examples of red flags that raise concern regarding the possibility of underlying genetic mutation include multiple primary cancers in one person, multiple family members with cancer, and young age at diagnosis. Identification of an individual with genetic predisposition is important since we could provide medical recommendations (mostly related to cancer screening) specific to that mutation, as well as advise regarding recurrence risk and family planning options. Ms. Garzon meets the genetic testing criteria based on family history. I recommend a gene panel of common hereditary cancer genes. I discussed that the most appropriate person to have genetic testing is the one who is affected with cancer. If the pathogenic variant is identified, we could test other first-degree relatives. The reason that we do not test an asymptomatic individual is that the negative result is uninformative. We would not know if it is negative because Ms. Garzon does not inherit the familial variant, if any (true negative) or if the test fails to detect the familial variant (we do not know what to be looking for; false negative). Thus, a negative test does not provide a 100% reassurance that Ms. Garzon hasnot inherited the familial variant, if any. We discussed Genetic Information Non-discrimination Act (DANIELA), which is a federal law that inhibits employer and health insurance to make decision based on genetic information. There is also anotherlayer of protection from state law. It however does not apply to life insurance, intermediate insurance, and disability insurance. Having a genetic variant that predisposes to cancers in an asymptomatic individual may have insurability implications. Ms. Garzon is interested in proceeding with the test. Pretest genetic counseling was provided as documented above. Plan: - [facility] panel, RNA/DNA sequencing. TAT 4 weeks. Sample: blood obtained today. Insurance billing. Will move her appointment to be seen sooner if significant mutation is identified. RTC 3 months. Thank you for allowing me to participate in the care of this patient. Please do not hesitate to contact me if you have any questions. Sincerely, Ly Pérez MD [facility] Address: [address] [place] [address] Time spent (this information is required by insurance): [id number] 70min; preparation 15min; documentation 45min; placing order(s) for genetic testing 10min; total time spent 140min documented in [facility] encounterUniversity [facility] Work Phone: 1(881) 180-605406-25-2024 Telephone encounter Note* Telephone Encounter - Maribell Garcia MA - 10/19/2023 2:15 PM EDT Patient was made aware of the results. Patient verbalizes understanding. Client services were able to add labs Maribell Garcia Ma [facility]24 Miscellaneous Notes* Telephone Encounter - Maribell Garcia MA - 10/19/2023 2:15 PM EDT Patient was made aware of the results. Patient verbalizes understanding. Client services were able to add labs Maribell Garcia Ma * Telephone Encounter - Yarelis Adkins APRN.CNS - 10/19/2023 2:02 PM EDT Please see if lab can run a renal panel off of the labs that were drawn yesterday? Ordered. Please let patient know that her hemoglobin A1c is 6.3%. I think it is good that we started the metformin. Vitamin D level is slightly low at 24.8. I recommend myds-div-zvahcmz vitamin D3 1000 mcg daily. Thyroid checks out normal Cholesterol levels look good. Iron levels normal, iron stores a little high. She does show trace amount of blood in her urine still. I would like to order a CT urogram. Hopefully I can have the lab drawl on renal panel off of the labs that were done yesterday. I will place anorder for a CT urogram to be done. documented in this encounterSt. [facility]06[facility] Telephone encounter Note * Telephone Encounter - Yarelis Adkins APRN.CNS - 10/19/2023 2:02 PM EDT Please see if lab can run a renal panel off of the labs that were drawn yesterday? Ordered. Please let patient know that her hemoglobin A1c is 6.3%. I think it is good that we started the metformin. Vitamin D level is slightly low at 24.8. I recommend bnfv-eec-pdruymv vitamin D3 1000 mcg daily. Thyroid checks out normal Cholesterol levels look good. Iron levels normal, iron stores a little high. She does show trace amount of blood in her urine still. I would like to order a CT urogram. Hopefully I can have the lab drawl on renal panel off of the labs that were done yesterday. I will place anorder for a CT urogram to be done. [facility] Instructions* Patient Instructions* Yarelis Adkins APRN.CNS - 10/18/2023 4:04 PM EDT 1) Start metformin SA 750 mg once a day with largest meal 2) Ultrasound pending 3) Follow up with Dr. Nava 11/16/23 documented in this encounterSt. [facility] Hospital06-[facility]24 History of Present illness Narrative* Yarelis Adkins, PAPER CONE MAKER.GATE CLERK - 10/18/2023 3:45 PM EDT VIRTUAL VISIT PROGRESS NOTE This is a virtual visit using [employer] Zoom Video Visit. It required patient- provider interaction for the medical decision making as documented below. I have communicated my name and active licensure. The patient's identity and physical location wereverified at the time of this visit. Either the patient or their legal high school admissions representative has been informed of the risks and benefits of -- and alternatives to -- treatment through a remote evaluation andconsents to proceed with the evaluation remotely. Maribell Garzon is a 57 year old female seen for blood sugars and fatigue. Blood sugar after eating the other day was 222, today FBS 121 Feels that she has ovarian cyst- ultrasound pending HISTORY REVIEWED (electronic chart updated): PAST MEDICAL HISTORY Diagnosis Date Abdominal pain, [...] CONIZATION CERVIX W/WO D&C RPR ELTRD EXC 2002 LEEP-Cervix ESOPHAGOGASTRODUODENOSCOPY TRANSORAL DIAGNOSTIC 01/22/2014,2009 EGD LAPAROSCOPY SURG CHOLECYSTECTOMY 05/19/2011 LIG/TRNSXJ FLP TUBE ABDL/VAG APPR UNI/BI 2003 Tubal ligation OOPHORECTOMY PARTIAL/TOTAL UNI/BI 09/2014 laparoscopic left, CW, umbilical/upper abdominal adhesions seen benign PAST SURGICAL HISTORY OF 1998 tubal PAST SURGICAL HISTORY OF 2001 thyroid ablation FAMILY HISTORY Problem Relation Age of Onset Diabetes Mother Type 2 stroke Colon Cancer Father age 64 ND Diabetes Father Type 2 Hypertension Father Coronary Artery Disease Father Hx of [place] Thyroid Sister hx of parathyroid disease/ hx [...] Topics Alcohol use: No Drug use: No Current Outpatient Medications Medication Sig Estradiol (ESTROGEL) 1.25 gram/actuation glpm 1 application as directed. 1 PUMP TWICE DAILY. APPLY THIN LAYER TO ARM FROM WRIST TO SHOULDER. 1 yr of refills Nizatidine (AXID) 150 mg capsule Take 1 capsule by mouth two times a day. drospirenone, contraceptive, (SLYND) 4 mg (28) tabet Take 1/2 pill daily. Noncontraceptive purpose.Please apply company discount, process as self-pay if [...] (CPD) Apply 0.1ml to vulva twice daily albuterol HFA (PROVENTIL HFA) 90 mcg/actuation inhaler [...] No current facility-administered medications for this visit. ALLERGIES Allergen Reactions Codeine GI Upset, Vomiting Percocet [Oxycodone* Vomiting Solumedrol [Methylp* Mental Status Change Made her rageful Vicodin [Hydrocodon* Vomiting Metformin Other: See Comments Myalgias. Norethindrone GI Upset myalgias, lip/mouth burn, SOB, nausea, dizziness Pepcid [Famotidine * Other: See Comments Dry eyes, mouth, rash, itching, anxiety Tapazole [Methimazo* Hives REVIEW OF SYSTEMS: GENERAL: No weight loss, + malaise, no fevers/chills RESPIRATORY: Negative for cough, hemoptysis, wheezing, dyspnea or shortness of breath CARDIOVASCULAR: Negative for chest pain, leg swelling, orthopnea, or palpitations : No history of dysuria, frequency or incontinence. Lower right side- very low into groin feels like a pinch MUSCULOSKELETAL: Negative for joint pain or swelling. PHYSICAL EXAMINATION: VIDEO EXAM: (if completed, performed via video enabled technology) GENERAL: alert and appropriate, in no distress, well-hydrated, well nourished, and happy, smiling, interactive ASSESSMENT & PLAN: ASSESSMENT/PLAN: 1. PCO (polycystic ovaries) - ICD9: 256.4, ICD10: E28.2 (primary diagnosis) Ultrasound (pelvic) done and pending - METFORMIN ER 750 MG TABLET,EXTENDED RELEASE 24 HR 2. Prediabetes - ICD9: 790.29, ICD10: R73.03 ongoing - METFORMIN ER 750 MG TABLET,EXTENDED RELEASE 24 HR 3. Fatigue, unspecified type - ICD9: 780.79, ICD10: R53.83 No anemia There are no Patient Instructions on file for this visit. I spent a total of 17 minutes on the date of the service which included preparing to see the patient, [id number] patient care, completing clinical documentation, and obtaining and/or reviewing separately obtained history Yarelis Adkins APRN.GATE CLERK documented in this encounterSt. [facility] Hospital06-21-2024 History of Present illness Narrative* Mireya Macdonald RDMS - 10/15/2023 1:00 PM EDT Radiology Service Progress Note PATIENT NAME: Maribell Garzon DATE OF SERVICE: October 15, 2023 TIME: 3:53 PM PATIENT IDENTITY VERIFICATION COMPLETED USING TWO (2) IDENTIFIERS: Name and Date of confirmedby patient verbally. FALL SCREENING: Has the patient had 2 falls in the last year or 1 fall with injury or currently using an Ambulatory Assistive Device (Walker, Cane, Wheelchair, Crutches, etc.)? No PATIENT GENDER DATA: Female. status: : No status: NO. PATIENT RELEVANT IMPLANT DATA REVIEWED: Not Applicable PATIENT PRESENTS WITH AN IMPLANTABLE OR ATTACHED INSTALLATION TECH: No RADIOLOGY DEPARTMENT: Ultrasound PERIPHERAL IV DATA: Not applicable SIGNED BY: Mireya Macdonald RDMS RVT October 15, 2023 3:53 PM documented in this encounterSt. [facility] Hospital06-20-2024 History of Present illness Narrative* Noman Hernandez MD - 10/14/2023 2:46 PM EDT HISTORY AND PHYSICAL Maribell Garzon 1965 REFERRING PHYSICIAN: Chilo Johnson MD CHIEF COMPLAINT: Consult (Umbilical hernia) HPI: Maribell is a 57 year old female with a complaint of a bulge and discomfort in her umbilical region. The patient notes discomfort in this area with lifting and straining. The symptoms have increased, over the past few months. The patient notes no symptoms of bowel obstruction and denies nausea or vomiting. The patient was seen by her primary care physician who felt the patient has a hernia. Maribell was referred for evaluation and treatment. The patient is being seen by me today at the request of Dr. Johnson for my opinion and advice regarding Ventral hernia without obstruction or gangrene (primary encounter diagnosis). PAST MEDICAL HISTORY Diagnosis Date Abdominal pain, [...] PAST SURGICAL HISTORY OF 2001 thyroid ablation Current Outpatient Medications Medication Sig Estradiol (ESTROGEL) 1.25 gram/actuation glpm 1 application as directed. 1 PUMP TWICE DAILY. APPLY THIN LAYER TO ARM FROM WRIST TO SHOULDER. 1 yr of refills Nizatidine (AXID) 150 mg capsule Take 1 capsule by mouth two times a day. drospirenone, contraceptive, (SLYND) 4 mg (28) tabet Take 1/2 pill daily. Noncontraceptive purpose.Please apply company discount, process as self-pay if [...] (CPD) Apply 0.1ml to vulva twice daily albuterol HFA (PROVENTIL HFA) 90 mcg/actuation inhaler [...] current facility-administered medications for this visit. ALLERGIES: Codeine, Percocet [Oxycodone-Acetaminophen], Solumedrol [Methylprednisolone Sodium Succ], Vicodin [Hydrocodone-Acetaminophen], Metformin, Norethindrone, Pepcid [Famotidine (Pf)], and Tapazole [Methimazole] PERSONAL HISTORY: Social History Tobacco Use Smoking status: Every Day Packs/day: 1.00 Years: 20.00 Additional pack years: 0.00 Total pack years: 20.00 Types: Cigarettes Smokeless tobacco: Never Vaping Use Vaping Use: Never used Substance Use Topics Alcohol use: No Drug use: No FAMILY HISTORY: FAMILY HISTORY Problem Relation Age of Onset Diabetes Mother Type 2 stroke Colon Cancer Father age 64 ND Diabetes Father Type 2 Hypertension Father Coronary Artery Disease Father Hx of [place] Thyroid Sister hx of parathyroid disease/ hx of fibroids other (healthy) Brother other (healthy) Brother Allergies Daughter other (healthy) Daughter other (healthy) Son other (healthy) Son other (healthy) Son other (healthy) Son Colon Cancer Paternal Aunt x5 Colon Cancer Paternal Uncle x8 REVIEW OF SYMPTOMS: The review of systems data was entered by the nurse and reviewed by [place] Nursing Notes: Vale Sibley LPN 10/14/2023 2:27 PM Signed REVIEW OF SYSTEMS: General: The patient denies fatigue, denies weight loss, denies weight gain, denies feeling hot, and denies feelings of cold. Eyes: The patient denies glaucoma, denies eye injury/surgery, does not wear glasses or contacts. Ear/Nose/Throat: The patient denies allergies, denies hayfever, denies ear infections, and denies bloody noses. Cardiovascular: The patient denies chest pain, denies heart disease, NOTES high blood pressure,denies cardiac stent, denies prior heart attack, NOTES irregular heart beat, denies high cholesterol, denies poor circulation, denies heart failure, other cardiac issues, denies claudication, denies cold feet, denies peripheral arterial stent. Respiratory: The patient denies tuberculosis, denies pneumonia, NOTES frequent cough, denies pulmonary embolism, NOTES shortness of breath, and denies coughing up blood. Gastrointestinal: The patient denies difficulty swallowing, NOTES acid reflux, denies ulcers, denies vomiting, denies jaundice/hepatitis, denies gallbladder problems, denies black or tarry stools, denies hemorrhoids, denies bleeding from rectum, denies diverticulitis, denies constipation, NOTES diarrhea, denies loss of stool control, and NOTES hernias. Kidney/Bladder: The patient denies kidney stones, denies urine infections, and denies bloody urine. Skin: The patient denies a history of skin cancer, denies bleeding/changing moles, and denies a history of skin rash. Neurologic: The patient denies a history of epilepsy/convulsions, denies headaches, denies head/spinal injuries, and denies stroke/TIA. Psychiatric: The patient NOTES psychiatric medications, denies depression, and denies voices, denies substance abuse. Endocrine: The patient denies thyroid disorders, denies diabetes, and NOTES hormonal problems. Hematologic: The patient denies a history of bruising, denies bleeding, and denies anemia, denies blood clots. Infections: The patient denies a history of measles and mumps, denies rheumatic fever, and denies sexually transmitted diseases. Musculoskeletal: The patient denies back pain/injury, NOTES back problems, denies sciatica, denies knee/foot trouble, denies arthritis, or denies gout. When was patient's last Mammogram screening? 2022 Last Colonoscopy: 2016 Vale Sibley LPN PHYSICAL EXAMINATION: General: The patient is 57 year old female, well nourished, well hydrated in no acute distress. Thepatient is oriented to time, place, and person. VITALS: Blood pressure 128/86, pulse (!) 124, temperature 36.8 C (98.2 F), height 157.5 cm (5' 2),weight 96.2 kg (212 lb), last menstrual period 03/10/2010, SpO2 95%. Body mass index is 38.78 kg/m . HEENT: Normal cephalic, ataumatic, pupils are equally round, sclera are anicteric, mucous membranesare moist, oropharynx is clear. Neck has no masses, asymmetry or lymphadenopathy. Thyroid is unremarkable. Respiratory: Clear to auscultation and percussion. Normal respiratory excursion and pattern. Cardiac: Examination is regular rate and rhythm. Abdominal exam: Soft, nontender, with no palpable masses. No hepatosplenomegaly. A moderate reducible ventral hernia, no right or left inguinal hernias are noted Rectal exam: exam deferred Extremities: no clubbing, cyanosis or edema. No adenopathy. Other: LABORATORY VALUES: As Noted RADIOLOGIC STUDIES: As Noted Assessment IMPRESSION: Ventral hernia without obstruction or gangrene (primary encounter diagnosis) PLAN: My plan is to perform a ventral hernia repair with possible mesh. The planned surgical procedure was discussed extensively with the patient. The risks, benefits, anticipated outcomes and possible complications were mentioned. Maribell daleyands that all hernia repair surgery has a chance of recurrence and/or chronic post operative pain. My staff has also explained the procedure in understandable terms and the patient was given the option to take printed material concerning the planned procedure. The patient had the opportunity to ask questions concerning the planned procedure. The patient freely consents to the planned procedure. My findings have been communicated to Dr. Johnson via shared medical record. This note will be forwarded to Dr. Freddy Nava MD. Diagnoses: (K43.9) Ventral hernia without obstruction or gangrene (primary encounter diagnosis) Anticipated CPT Code: Initial anterior abdominal hernia repair: 61586 - 3-10 cm reducible Anticipated Anesthetic: General Patient weight: Blood pressure 128/86, pulse (!) 124, temperature 36.8 C (98.2 F), height 157.5 cm (5' 2), weight 96.2 kg (212 lb), last menstrual period 03/10/2010, SpO2 95%. BMI: Body mass index is 38.78 kg/m . Planned antibiotic: Ancef 3gm IVPB assistant construction superintendent to OR SCDs needed - Yes Return to Clinic: The patient is instructed to follow-up with me 1 week post operatively. Noman Hernandez III, MD documented in this encounterSt. [facility] Hospital06-20-2024 Nurse Note* Vale Sibley, PANTOGRAPH MACHINE OPERATOR - 10/14/2023 2:25 PM EDT REVIEW OF SYSTEMS: General: The patient denies fatigue, denies weight loss, denies weight gain, denies feeling hot, and denies feelings of cold. Eyes: The patient denies glaucoma, denies eye injury/surgery, does not wear glasses or contacts. Ear/Nose/Throat: The patient denies allergies, denies hayfever, denies ear infections, and denies bloody noses. Cardiovascular: The patient denies chest pain, denies heart disease, NOTES high blood pressure,denies cardiac stent, denies prior heart attack, NOTES irregular heart beat, denies high cholesterol, denies poor circulation, denies heart failure, other cardiac issues, denies claudication, denies cold feet, denies peripheral arterial stent. Respiratory: The patient denies tuberculosis, denies pneumonia, NOTES frequent cough, denies pulmonary embolism, NOTES shortness of breath, and denies coughing up blood. Gastrointestinal: The patient denies difficulty swallowing, NOTES acid reflux, denies ulcers, denies vomiting, denies jaundice/hepatitis, denies gallbladder problems, denies black or tarry stools, denies hemorrhoids, denies bleeding from rectum, denies diverticulitis, denies constipation, NOTES diarrhea, denies loss of stool control, and NOTES hernias. Kidney/Bladder: The patient denies kidney stones, denies urine infections, and denies bloody urine. Skin: The patient denies a history of skin cancer, denies bleeding/changing moles, and denies a history of skin rash. Neurologic: The patient denies a history of epilepsy/convulsions, denies headaches, denies head/spinal injuries, and denies stroke/TIA. Psychiatric: The patient NOTES psychiatric medications, denies depression, and denies voices, denies substance abuse. Endocrine: The patient denies thyroid disorders, denies diabetes, and NOTES hormonal problems. Hematologic: The patient denies a history of bruising, denies bleeding, and denies anemia, denies blood clots. Infections: The patient denies a history of measles and mumps, denies rheumatic fever, and denies sexually transmitted diseases. Musculoskeletal: The patient denies back pain/injury, NOTES back problems, denies sciatica, denies knee/foot trouble, denies arthritis, or denies gout. When was patient's last Mammogram screening? 2022 Last Colonoscopy: [address] [facility] Nurse Note* Vale Sibley LPN - 10/14/2023 2:25 PM EDT REVIEW OF SYSTEMS: General: The patient denies fatigue, denies weight loss, denies weight gain, denies feeling hot, and denies feelings of cold. Eyes: The patient denies glaucoma, denies eye injury/surgery, does not wear glasses or contacts. Ear/Nose/Throat: The patient denies allergies, denies hayfever, denies ear infections, and denies bloody noses. Cardiovascular: The patient denies chest pain, denies heart disease, NOTES high blood pressure,denies cardiac stent, denies prior heart attack, NOTES irregular heart beat, denies high cholesterol, denies poor circulation, denies heart failure, other cardiac issues, denies claudication, denies cold feet, denies peripheral arterial stent. Respiratory: The patient denies tuberculosis, denies pneumonia, NOTES frequent cough, denies pulmonary embolism, NOTES shortness of breath, and denies coughing up blood. Gastrointestinal: The patient denies difficulty swallowing, NOTES acid reflux, denies ulcers, denies vomiting, denies jaundice/hepatitis, denies gallbladder problems, denies black or tarry stools, denies hemorrhoids, denies bleeding from rectum, denies diverticulitis, denies constipation, NOTES diarrhea, denies loss of stool control, and NOTES hernias. Kidney/Bladder: The patient denies kidney stones, denies urine infections, and denies bloody urine. Skin: The patient denies a history of skin cancer, denies bleeding/changing moles, and denies a history of skin rash. Neurologic: The patient denies a history of epilepsy/convulsions, denies headaches, denies head/spinal injuries, and denies stroke/TIA. Psychiatric: The patient NOTES psychiatric medications, denies depression, and denies voices, denies substance abuse. Endocrine: The patient denies thyroid disorders, denies diabetes, and NOTES hormonal problems. Hematologic: The patient denies a history of bruising, denies bleeding, and denies anemia, denies blood clots. Infections: The patient denies a history of measles and mumps, denies rheumatic fever, and denies sexually transmitted diseases. Musculoskeletal: The patient denies back pain/injury, NOTES back problems, denies sciatica, denies knee/foot trouble, denies arthritis, or denies gout. When was patient's last Mammogram screening? 2022 Last Colonoscopy: 2016 Vale Sibley LPN documented in this encounterSt. [facility]06-[facility]24 Telephone encounter Note * Telephone Encounter - Andreina Vital LPN - 10/12/2023 10:18 AM EDT Faxed Sleep Study dated 06/18/2023 to [facility] per request dated 10/12/2023. Andreina Vital LPN [facility] Miscellaneous Notes* Telephone Encounter - Andreina Vital LPN - 10/12/2023 10:18 AM EDT Faxed Sleep Study dated 06/18/2023 to [facility] per request dated 10/12/2023. Andreina Vital LPN documented in this encounterSt. Elizabeth Hospital06-06-2024 Telephone encounter Note * Telephone Encounter - Oxana Silva - 09/30/2023 9:51 AM EDT 2nd call attempt, unable to leave vm [facility] Miscellaneous Notes* Telephone Encounter - Oxana Silva - 09/30/2023 9:51 AM EDT 2nd call attempt, unable to leave vm * Telephone Encounter - Pati Cohen - 09/28/2023 10:54 AM EDT Called patient to schedule US and 4-6 week follow up ,no answer and mailbox is full. Sent my chart message * Telephone Encounter - Yarelis Peñaloza LPN - 09/28/2023 10:35 AM EDT Images from the original note were not included. Freddy Nava MD [facility] [employer] Set up for ultrasound Schedule follow up in four to six weeks or prn documented in this encounterSt. [facility] Hospital06-04-2024 Telephone encounter Note * Telephone Encounter - Pati Cohen - 09/28/2023 10:54 AM EDT Called patient to schedule US and 4-6 week follow up ,no answer and mailbox is full. Sent my chart message [facility] Telephone encounter Note* Telephone Encounter - Yarelis Peñaloza LPN - 09/28/2023 10:35 AM EDT Images from the original note were not included. Freddy Nava MD P [facility] [employer] Set up for ultrasound Schedule follow up in four to six weeks or prn [facility] History of Present illness Narrative* Freddy Nava MD - 09/27/2023 7:40 PM EDT Patient presents with: Follow Up HPI:This visit is a virtual encounter. It required patient-provider interaction for the medical decision making as documented below. Patient has elected to have a visit through distance medicine I have communicated my name and active licensure. The patient's identity and physical location wereverified at the time of this visit. Either the patient or their legal high school admissions representative has been informed of the risks and benefits of -- and alternatives to -- treatment through a remote evaluation andconsents to proceed with the evaluation remotely. Since here last, has seen sleep med, endo, Dr. Johnson and Yarelis Adkins, and pulmonary. She has a number of labs still pending. She is scheduled to see pulmonary as well as genetics at . Sleep med has rec trying to do a titration study at [facility] for possible bipap. She is seeing surgery for her umbilical hernia. She has also had some fullness and pelvic issues. She is worried about her ovaries and uterus. Has intermittent edema of one leg as well at times so is worried about her ovaries due to that as well. Has had venous dopplers in the past and had a leg injury on that side in the past which probably contributes. No vaginal or urinary bleeding. No discharge. Is burning from time to time. No fever. Her umbilical hernia is not painful. Her sugars were high fasting but have been ok the rest of the day. Just got her estrogen. No bowel issues. MEDICATIONS: Current Outpatient Medications Medication Sig Estradiol (ESTROGEL) 1.25 gram/actuation glpm 1 application as directed. 1 PUMP TWICE DAILY. APPLY THIN LAYER TO ARM FROM WRIST TO SHOULDER. 1 yr of refills Nizatidine (AXID) 150 mg capsule Take 1 capsule by mouth two times a day. drospirenone, contraceptive, (SLYND) 4 mg (28) tabet Take 1/2 pill daily. Noncontraceptive purpose.Please apply company discount, process as self-pay if [...] (CPD) Apply 0.1ml to vulva twice daily albuterol HFA (PROVENTIL HFA) 90 mcg/actuation inhaler [...] conflict 03/07/2013 Rectocele 05/13/2009 SVT (supraventricular tachycardia) ([facility]) Has seen cardiology at [facility], many [...] 2 stroke Colon Cancer Father age 64 [place] Diabetes Father Type 2 Hypertension Father Coronary Artery Disease Father Hx of [place] Thyroid Sister hx of parathyroid disease/ hx [...] past medical history, surgical history, family history andsocial history today. REVIEW OF SYSTEMS All other reviewed and negative other than HPI. HEALTH MAINTENANCE: Reviewed health maintenance issues today and recommended the following in detail. Shingrix Vaccine(1 of 2) Never done Lung Cancer Screening due on 04/23/2017 Pap Testing due on 11/25/2023 HPV Testing due on 11/25/2023 VITALS: Could not assess Last 4 Encounter Wt Readings: Date: Wt: 09/24/2023 95.8 kg (211 lb 3.2 oz) 09/13/2023 95.7 kg (211 lb) 08/30/2023 95.7 kg (211 lb) 07/28/2023 96.3 kg (212 lb 4.9 oz) PHYSICAL EXAMINATION: Patient is alert and oriented during visit. Answers appropriately. Breathing comfortably. ASSESSMENT/PLAN: 1. Suprapubic discomfort - ICD9: 789.09, ICD10: R10.2 (primary diagnosis) - start with us. Can consider ct. - URINALYSIS, WITH MICROSCOPIC, in addition to ordered labs. - URINE CULTURE - US FEMALE PELVIS TRANSVAG 2. Edema, unspecified type - ICD9: 782.3, ICD10: R60.9 As above.l 3. Umbilical hernia without obstruction or gangrene - ICD9: 553.1, ICD10: K42.9 - see surgery. Freddy Nava MD documented in this encounterSt[facility] History of Present illness Narrative* Mikala Crowley APRN.NARCOTICS AND VICE DETECTIVE - 09/24/2023 8:00 AM EDT Images from the original note were not included. [facility] New Patient Evaluation PATIENT NAME: Maribell Garzon DATE OF SERVICE: September 23, 2023 CONSULTING PROVIDER: Freddy Nava [address] [facility] [id number] REASON FOR CONSULT: Freddy Nava sends the patient for an opinion about ANDRESSA, nocturnal hypoxia. My findings and recommendations will be transmitted electronically via shared medical record to the consulting provider. HPI: Maribell Garzon is a 57 year old female. Sleep-related history: at least mild ANDRESSA per HSAT, hypoxia was noted even in the absence of respiratory events. Gets asthma attacks from CPAP. Has severe acid reflux, this is worse with CPAP and thenasthma is worsened. So she just uses oxygen at night; doesn't note subjective benefit. She doesn't feel there is anything we can do for her ANDRESSA. SLEEP-WAKE SCHEDULE Bedtime: 2-4 AM. Waits to get into bed until she feels drowsy. She then falls asleep w/in 5 minutes. Wake time: 11 AM is latest, usually 930-10 am w/o alarm After falling asleep: she wakes up 3-4 time(s) per night, because of the need to urinate. On weekends, she maintains the same sleep schedule. Average total sleep time (in a 24 hour period): 5-7 hours. SLEEP-RELATED DETAILS Preferred sleep position: side Breathing disturbances and other behaviors during sleep: snoring if my thyroid is low. Bruxism: No GERD or aspiration: Yes Waking up with heart pounding or racing: Yes Anxiety or rumination: Yes She does not report having an urge to move the legs in the evening (when resting) that is accompanied or caused by uncomfortable and/or unpleasant sensations in the legs. She has not been told that she has leg kicking during sleep. She denies any history of parasomnias. Daytime sleepiness is not a problem. Feels that she has fatigue is related to non-sleep issues. She does not report sleep paralysis or sleep-related hallucinations (may have some visual) or cataplexy WAKE-RELATED DETAILS She does not work. She does not have difficulty with memory but does with concentration. She denies falling asleep or dozing off when driving. She does not take naps. She does not drink caffeinated beverages. There has not been a recent change in weight. Patient Questionnaires Sleep Scores 03/12/2020 Sleep Questions Reason for visit: Unsure 02/13/2020 [place] Sleepiness Scale Score 14 (Excessive daytime sleepiness present) 03/12/2020 PROMIS CAT Sleep Disturbance PROMIS Sleep Disturbance T-Score 64 (moderate) PROMIS Sleep Disturbance Percentile 8 02/27/2020 Insomnia Severity Index Score 20 05/20/2023 PHQ-9 Score 23 09/17/2023 PROMIS Global Health - (T-Scores - the mean of general population = 50. Five points is a clinicallymeaningful difference.) Physical T-Score 29.6 29.6 29.6 Mental T-Score 25.1 25.1 25.1 PAST TREATMENTS: autoCPAP PRIOR SLEEP STUDIES: A Home Sleep Test (HST) performed on 06/18/23 revealed an AHI of 9.9; supine index of 0; and a minimum oxygen saturation of 80%. PAST MEDICAL HISTORY Diagnosis Date Abdominal pain, [...] conflict 03/07/2013 Rectocele 05/13/2009 SVT (supraventricular tachycardia) ([facility]) Has seen cardiology at [facility], many [...] PAST SURGICAL HISTORY OF 2001 thyroid ablation ACTIVE PROBLEM LIST Postablative Hypothyroidism hx of low vitamin D Panic Disorder With Agoraphobia Chronic Fatigue Syndrome With Fibromyalgia Blood Pressure Elevated Without History of Htn Impaired Glucose Tolerance Svt (Supraventricular Tachycardia) ([facility]) Ptsd (Post-Traumatic Stress Disorder) Attention Deficit Hyperactivity Disorder (Adhd), Combined Type Recurrent Major Depressive Disorder, in Partial Remission ([facility]) menopause age 43 Tobacco Use Gerd Without Esophagitis Simple Chronic Bronchitis ([facility]) Irritable Bowel Syndrome With Diarrhea Burning Sensation of Mouth Burning Sensation of Skin Sleep Difficulties Mitral Valve Prolapse Estrogen Deficiency Adrenal Adenoma, Left Andressa (Obstructive Sleep Apnea) Nocturnal Oxygen Desaturation 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) Cyp2c9 Intermediate Metabolizer (Hcc) Acv3b56 Rapid Metabolizer (Hcc) Ugt1a1 Intermediate Metabolizer (Hcc) Heterozygous Factor V Leiden Mutation (Hcc) Hormone Deficiency Menopausal and Perimenopausal Disorder Mood Change Allergies As of Date: 09/24/2023 Allergen Noted Reaction CODEINE 09/27/2014 GI Upset and Vomiting PERCOCET [OXYCODONE-ACETAMINOPHEN]07/17/2011 Vomiting SOLUMEDROL [METHYLPREDNISOLONE SO*01/22/2014 Mental Status Change VICODIN [HYDROCODONE-ACETAMINOPHE*07/17/2011 Vomiting METFORMIN 10/28/2017 Other: See Comments NORETHINDRONE 09/26/2018 GI Upset PEPCID [FAMOTIDINE (PF)] 07/07/2016 Other: See Comments TAPAZOLE [METHIMAZOLE] 10/14/2005 Hives Fully Assessed 09/24/2023 CURRENT MEDICATIONS: Estradiol (ESTROGEL) 1.25 gram/actuation glpm 1 application as directed. 1 PUMP TWICE DAILY. APPLY THIN LAYER TO ARM FROM WRIST TO SHOULDER. 1 yr of refills Nizatidine (AXID) 150 mg capsule Take 1 capsule by mouth two times a day. drospirenone, contraceptive, (SLYND) 4 mg (28) tabet Take 1/2 pill daily. Noncontraceptive purpose.Please apply company discount, process as self-pay if [...] (CPD) Apply 0.1ml to vulva twice daily albuterol HFA (PROVENTIL HFA) 90 mcg/actuation inhaler Inhale 2 Puffs as instructed every 4 hours as needed. NEEDED FOR SHORTNESS OF BREATH AND WHEEZING lancets (FREESTYLE LANCETS) 28 gauge misc USE FOUR TIMES DAILY DIRECTED blood sugar diagnostic (FREESTYLE TEST) test strip TEST four times a day Blood-Glucose Meter (FREESTYLE LITE METER) monitoring kit 1 Each as needed. Review of Systems Constitutional: Positive for fatigue. Cardiovascular: Positive for palpitations. Gastrointestinal: Positive for heartburn. Genitourinary: Positive for nocturia. Neurological: Negative for memory loss. SOCIAL HISTORY: Social History Tobacco Use Smoking status: Every Day Packs/day: 1.00 Years: 20.00 Additional pack years: 0.00 Total pack years: 20.00 Types: Cigarettes Smokeless tobacco: Never Vaping Use Vaping Use: Never used Substance Use Topics Alcohol use: No Drug use: No FAMILY HISTORY: FAMILY HISTORY Problem Relation Age of Onset Diabetes Mother Type 2 stroke Colon Cancer Father age 64 [place] Diabetes Father Type 2 Hypertension Father Coronary Artery Disease Father Hx of [place] Thyroid Sister hx of parathyroid disease/ hx of fibroids other (healthy) Brother other (healthy) Brother Allergies Daughter other (healthy) Daughter other (healthy) Son other (healthy) Son other (healthy) Son other (healthy) Son Colon Cancer Paternal Aunt x5 Colon Cancer Paternal Uncle x8 There is a family history of: Sleep apnea. Relative: son PHYSICAL EXAMINATION: Vital Signs: BP 144/99 Pulse 78 Resp 18 Wt 95.8 kg (211 lb 3.2 oz) LMP 03/10/2010 SpO2 97% BMI 39.91kg/m PHYSICAL EXAM: General appearance: pleasant, NAD Mental status: alert and oriented, able to provide own history Constitutional: obese Skin: No visible rashes on exposed skin Neuro: No focal deficits observed, no tremors ENT : Posterior airspace: Chamberlain tongue position 4, retrognathia absent. Overbite absent. High arched palate present. Tongue scalloping/ridging present. IMPRESSION/PLAN: G47.33 ANDRESSA (obstructive sleep apnea) (primary encounter diagnosis) Z78.9 Intolerance of continuous positive airway pressure (CPAP) ventilation G47.34 Nocturnal hypoxia G47.21 Delayed sleep phase syndrome G47.00 Frequent nocturnal awakening Maribell Garzon is a 57 year old female with PMH of at least mild ANDRESSA, nocturnal hypoxia, CPAP intolerance, delayed sleep phase, frequent nocturnal awakenings, nocturia, supplemental oxygen at night, fibromyalgia, SVT, MVP, smoker, GERD, IBS, hypothyroidism, PTSD, ADHD, MDD. She reports that she doesn't tolerate autoCPAP due to her severe acid reflux and asthma. We reviewed her HSAT, discussed ANDRESSA, risks of untreated ANDRESSA. Consider possibility of biPAP as beingbetter tolerated. Briefly discussed hypoglossal nerve stimulation ([employer]) but she doesn't qualifycurrently. Bilevel titration study at [facility] per pt preference. She plans to take benedryl since her sleep phase is delayed. Follow up after sleep study. Mikala Crowley APRN.DHIRAJ documented in this encounterSt. [facility] Instructions* Patient Instructions* Yarelis Adkins APRN.CNS - 09/17/2023 12:01 PM EDT 1) labs October 11 2) discussed eating very small meals with a protein and a carbohydrate throughout the day rather than 1 large meal at supper 3) will gather blood sugars before meals and at bedtime for Wednesday's appointment documented in this encounterSt. [facility] History of Present illness Narrative* Yarelis Adkins APRN.CNS - 09/17/2023 11:44 AM EDT VIRTUAL VISIT PROGRESS NOTE This is a virtual visit using [facility] [employer] (T[employer])t Zoom Video Visit. It required patient- provider interaction for the medical decision making as documented below. I have communicated my name and active licensure. The patient's identity and physical location wereverified at the time of this visit. Either the patient or their legal high school admissions representative has been informed of the risks and benefits of -- and alternatives to -- treatment through a remote evaluation andconsents to proceed with the evaluation remotely. Maribell Garzon is a 57 year old female seen for feeling sluggish. HISTORY REVIEWED (electronic chart updated): PAST MEDICAL HISTORY Diagnosis Date Abdominal pain, [...] 2 stroke Colon Cancer Father age 64 [place] Diabetes Father Type 2 Hypertension Father Coronary Artery Disease Father Hx of [place] Thyroid Sister hx of parathyroid disease/ hx [...] Topics Alcohol use: No Drug use: No Current Outpatient Medications Medication Sig Estradiol (ESTROGEL) 1.25 gram/actuation glpm 1 application as directed. 1 PUMP TWICE DAILY. APPLY THIN LAYER TO ARM FROM WRIST TO SHOULDER. 1 yr of refills Nizatidine (AXID) 150 mg capsule Take 1 capsule by mouth two times a day. drospirenone, contraceptive, (SLYND) 4 mg (28) tabet Take 1/2 pill daily. Noncontraceptive purpose.Please apply company discount, process as self-pay if [...] heated tubing (YULISSA). [employer]. G47.33 ANDRESSA (Patient not taking: Reported on 09/13/2023) albuterol HFA (PROVENTIL HFA) 90 mcg/actuation inhaler [...] No current facility-administered medications for this visit. ALLERGIES Allergen Reactions Codeine GI Upset, Vomiting Percocet [Oxycodone* Vomiting Solumedrol [Methylp* Mental Status Change Made her rageful Vicodin [Hydrocodon* Vomiting Metformin Other: See Comments Myalgias. Norethindrone GI Upset myalgias, lip/mouth burn, SOB, nausea, dizziness Pepcid [Famotidine * Other: See Comments Dry eyes, mouth, rash, itching, anxiety Tapazole [Methimazo* Hives REVIEW OF SYSTEMS: Took blood sugar this morning it was 198. Ate a snack in the middle of the night. Urinating large amount through the night. Currently, 98. Feels very sluggish. Very tired after she eats. If she does things that are very physical, she is exhausted. Typical meal- usually only eats once a day. Chicken with cheese and mushrooms, sweet potato and a salad with ranch dressing. Piece of toasted bread. PHYSICAL EXAMINATION: VIDEO EXAM: (if completed, performed via video enabled technology) Appears well sitting at home speaking with me. In no distress ASSESSMENT: Fatigue PLAN: ASSESSMENT/PLAN: 1. Fatigue, unspecified type - ICD9: 780.79, ICD10: R53.83 ongoing - VITAMIN B12 - IRON AND TIBC - FERRITIN - Patient will gather blood sugars before meals and at bedtime until she sees Dr. Nava on Wednesday - Discussed. Protein and carbohydrate throughout the day. Eating only once a day can decrease your metabolism. There are no Patient Instructions on file for this visit. I spent a total of 15 minutes on the date of the service which included preparing to see the patient, [id number] patient care, and completing clinical documentation Discussed treatment plan and patient voices understanding. Patient's questions answered appropriately. Medications and potential side effects were discussed and patient voices understanding. Return to the office as scheduled or as needed for worsening/no improvement. Yarelis Adkins APRN.GATE CLERK documented in this encounterSt. [facility]05[facility] History of Present illness Narrative* Chilo Johnson MD - 09/13/2023 3:00 PM EDT Chief Complaint Patient presents with: Hernia HPI Maribell Garzon is a 57 year old female who presents here today for Hernia. Dr Nava is patient's PCP. We are seeing patient today for Umbilical Hernia. Has had for 6-8 years and until now has not had an issue Pain? Scale 5 Location? Upper abdomen When did it start? Started a few days ago. No nausea or vomiting. Patient had a ovary surgery and then she got the hernia. Has had for quite some time but until Wednesday when she started having pain. Past medical history, appointments, medications, allergies reviewed. Previous Medical History PAST MEDICAL HISTORY Diagnosis Date Abdominal pain, [...] change. - Tele Tobacco use Weight gain Previous Surgical History PAST SURGICAL HISTORY Procedure Laterality Date COLONOSCOPY 04/2017 says nl CONIZATION CERVIX W/WO D&C RPR ELTRD EXC 2001 LEEP-Cervix ESOPHAGOGASTRODUODENOSCOPY TRANSORAL DIAGNOSTIC 01/22/2014,2009 EGD LAPAROSCOPY SURG CHOLECYSTECTOMY 05/19/2011 LIG/TRNSXJ FLP TUBE ABDL/VAG APPR UNI/BI 2003 Tubal ligation OOPHORECTOMY PARTIAL/TOTAL UNI/BI 09/2014 laparoscopic left, CW, umbilical/upper abdominal adhesions seen benign PAST SURGICAL HISTORY OF 1998 tubal PAST SURGICAL HISTORY OF 2001 thyroid ablation Family History FAMILY HISTORY Problem Relation Age of Onset Diabetes Mother Type 2 stroke Colon Cancer Father age 64 [place] Diabetes Father Type 2 Hypertension Father Coronary Artery Disease Father Hx of [place] Thyroid Sister hx of parathyroid disease/ hx of fibroids other (healthy) Brother other (healthy) Brother Allergies Daughter other (healthy) Daughter other (healthy) Son other (healthy) Son other (healthy) Son other (healthy) Son Colon Cancer Paternal Aunt x5 Colon Cancer Paternal Uncle x8 Patient Allergies ALLERGIES Allergen Reactions Codeine GI Upset, Vomiting Percocet [Oxycodone* Vomiting Solumedrol [Methylp* Mental Status Change Made her rageful Vicodin [Hydrocodon* Vomiting Metformin Other: See Comments Myalgias. Norethindrone GI Upset myalgias, lip/mouth burn, SOB, nausea, dizziness Pepcid [Famotidine * Other: See Comments Dry eyes, mouth, rash, itching, anxiety Tapazole [Methimazo* Hives Current Medications Current Outpatient Medications on File Prior to Visit Medication Sig Estradiol (ESTROGEL) 1.25 gram/actuation glpm 1 application as directed. 1 PUMP TWICE DAILY. APPLY THIN LAYER TO ARM FROM WRIST TO SHOULDER. 1 yr of refills Nizatidine (AXID) 150 mg capsule Take 1 capsule by mouth two times a day. drospirenone, contraceptive, (SLYND) 4 mg (28) tabet Take 1/2 pill daily. Noncontraceptive purpose.Please apply company discount, process as self-pay if [...] Each as needed. No current facility-administered medications on file prior to visit. Social History Social History Tobacco Use Smoking status: Every Day Packs/day: 1.00 Years: 20.00 Additional pack years: 0.00 Total pack years: 20.00 Types: Cigarettes Smokeless tobacco: Never Vaping Use Vaping Use: Never used Substance Use Topics Alcohol use: No Drug use: No Review of Symptoms REVIEW OF SYSTEMS See HPI EXAM: BP 140/96 (BP Site: Right Arm, BP Position: Sitting, BP Cuff Size: Large Adult) Pulse 82 Resp 16 Wt 95.7 kg (211 lb) LMP 03/10/2010 BMI 39.87 kg/m General Appearance: Well appearing, alert, in no acute distress, well-hydrated, well nourished.. Abdomen: Normal abdominal exam, Abdomen soft, non-tender. Bowel sounds normal. No masses, organomegaly. Has a umbilical hernia at the 5 o'clock they if firm and not reducible. Though it's tender there is no guarding or peritoneal peter. Health Maintenance List Shingrix Vaccine(1 of 2) Never done Lung Cancer Screening due on 04/23/2017 Pap Testing due on 11/25/2023 HPV Testing due on 11/25/2023 Covid-19 Vaccine(2 - season) due on 05/20/2024 Pneumococcal Vaccine(1 of 2 - PCV) due on 05/27/2031 Influenza Vaccine(Season Ended) due on 12/26/2023 Mammogram Screening due on 07/01/2024 Annual PCP Team Chronic Disease Visit due on 07/11/2024 Lipid Screening due on 12/03/2024 Colorectal Cancer Screening due on 05/27/2026 Diabetes Screening due on 07/08/2026 DTaP,Tdap,Td Vaccine(2 - Td or Tdap) due on 01/26/2028 Hepatitis C Screening Completed HIV Screening Completed Hepatitis B Vaccine Discontinued Data reviewed A/P ASSESSMENT/PLAN: 1. Umbilical hernia without obstruction and without gangrene - ICD9: 553.1, ICD10: K42.9 - CONSULT TO GENERAL SURGERY: Dr. David Johnson MD documented in this encounterSt. [facility]05-[facility]24 Instructions* Patient Instructions* Hannah Bass APRN.NARCOTICS AND VICE DETECTIVE - 08/30/2023 11:40 AM EDT SMOKING CESSATION EDUCATION Why do I need to know about the health risks of cigarette smoking? Cigarette smoking is the most preventable cause of illness and . Cigarettes are filled with nicotine, which acts like a poison in your body. What are the health risks of cigarette smoking? You may have breathing problems that make it difficult for you to do daily activities or play sports. You have a higher risk of bone fractures because smoking can cause osteoporosis (brittle bones). If you fall asleep with a lit cigarette, you can start a fire. Cigarette smoking can also cause the following health problems: Cancer: Heart and blood vessel disease: The nicotine in tobacco causes an increase in your heart rate and blood pressure. Nicotine also causes your blood vessels to narrow. This can lead to blood clots in your heart or brain and cause a heart attack or stroke. Cigarette smoke has carbon monoxide init. This can decrease the amount of oxygen flowing to your heart and other organs. Lung disease: The chemicals in cigarette smoke can damage your lungs. This causes a buildup of dirtand waste products in your lungs. Many people who smoke have a long-term cough as a result. Cigarette smoking may also cause long-term lung infections or diseases, such as asthma, emphysema, or chronic bronchitis. You are also at higher risk for respiratory illnesses, such as colds or pneumonia. Gastrointestinal disease: Cigarette smoking increases the amount of acid in your stomach. This can cause an ulcer or gastric reflux. Women and smoking: You have a higher risk of heart and blood vessel disease if you smoke and take control pills. The risk is more serious is you are 35 years or older. Why should I quit smoking? Your health will improve and your risks for many diseases will decrease.Your breath, clothes, and hair will no longer smell like smoke. Tobacco will no longer stain your teeth. Tobacco smoke is dangerous to others. If you quit, you will decrease the risks to those aroundyou, such as your children or family members. Where can I go for support and more information? There are many ways to quit smoking. Some may workbetter for you than others. Your caregiver can help you find the best plan to quit. Smokefree.gov Web Address: www.smokefree.gov Phone: [place] [employer] Web Address: www.[email or web address].org [address] [place] [address] Mital[place]. [facility] , [place] Phone: Phone: [facility] Sm[facility] Cessation Program [email or web address] CT Lung Screen Results The CT scan that you will have done will show if you have any nodules (small spots) in your lungs that are suspicious for cancer. Around 90% of the patients who have this scan done are found to have at least one nodule. Most nodules are benign (not cancer) and of no harm to you at all. A specialistwill make a scientific evaluation about whether or not a nodule is worrisome based on its size and shape. The radiologist who will read your scan will put it into one of four categories: LUNG-RADS Category Description Overall Probability of Malignancy Recommended Follow-Up 1 Negative No nodules and definitely benign (non-cancerous nodules) Essentially 0. 1 Year - Follow-up Low dose CT 2 Benign Appearance or Behavior Nodules with a very low likelihood of becoming cancer due to size or lack of growth Less than 1% 1 Year - Follow-up Low dose CT 3 Probably Benign Probably benign finding, short term follow-up recommended 1 to 2% 6 Months - Follow-up Low dose CT 4 Suspicious Findings for which additional diagnostic testing and/or biopsy is recommended Will be calculated based on nodule characteristics. Dependent on what is seen on the exam. (3 month follow-up CT, PET-CT, or biopsy) 0 Incomplete Findings suggestive of an inflammatory or infectious process AND/OR part of the lung cannot be evaluated Additional lung cancer screening CT imaging needed AND/OR comparison with prior chest CT imaging At times, we may see something outside of the lungs on the scan that could be a health concern. Below are some of the most common findings: S Clinically Significant or Potentially Clinically Significant Findings (non lung cancer) Referral or additional imaging/labs depending on result. Approximately 10% of people receive this result. Coronary Artery Calcifications (Moderate or Severe) - Referral to cardiology for further work-up and recommendations. Thyroid Nodule - TSH level and Thyroid Ultrasound dependent on size, referral to endocrinology. Adrenal Nodule - blood work and referral to endocrinology. Others Lung Cancer Screening hotline: [phone] Lung Cancer Screening [phone] Billing Questions: or [email or web address] Specialist Providers: (Ana Negro PA-C; Ileana Evans CNP; Carmen Reilly CNP, Lashae Boykin CNP; Jannet Guerrero CNP; RUKHSANA Wilcox; Hannah Bass CNP; Denise Boggs CNP; Stacia Welch CNP; Lavinia Matos CNP; Arminda Ortiz PA-C; Cheli Worrell PA-C; Meredith Cross CNP; Giuliana Purcell CNP; Carlee Ortiz CNP): [phone] documented in this encounterSt. Elizabeth Hospital05-06-2024 History of Present illness Narrative* Hannah Bass APRN.NARCOTICS AND VICE DETECTIVE - 08/30/2023 11:26 AM EDT Images from the original note were not included. LUNG SCREENING VISIT PRIMARY CARE PHYSICIAN: Freddy Nava MD PULMONARY PROVIDER: none Results will be communicated via letter or electronic record if applicable. Visit Delivery: In Person Patient Visit Type: New to Screening Current or Ex-smoker? [Current Exam Type: baseline LDCT Number of Pack Years: 40 Current smoker (=0) REQUESTER: The referring provider advised the patient to have screening. HISTORY OF PRESENT ILLNESS: Maribell Garzon is a 57 year old Active smoker who presents for lung screening. Pt has had multiple [facility] at [facility] over the years. GERD with aspiration. Pt has pneumonia 4 years ago. Respiratory symptoms include: SOB: No Chest tightness: No Coughing: Yes: Without mucus with aspiration/reflux Hemoptysis: No Wheezing: Yes, from reflux Fever/Chills: No Recent Respiratory Infection: No Unintentional weight loss: No Last 6 Encounter Wt Readings: Date: Wt: 08/30/2023 95.7 kg (211 lb) 07/28/2023 96.3 kg (212 lb 4.9 oz) 07/07/2023 95.6 kg (210 lb 12.8 oz) 06/18/2023 95.7 kg (211 lb) 05/31/2023 96.2 kg (212 lb) 08/06/2022 94.8 kg (209 lb) ECOG PERFORMANCE STATUS: 0- Fully active, able to carry on all pre-disease performance w/o restriction. Modified Medical Research Bloomer Dyspnea Scale (MMRC) I only get breathless with strenous exercise 0 PAST MEDICAL HISTORY Diagnosis Date Abdominal pain, [...] 2 stroke Colon Cancer Father age 64 ND Diabetes Father Type 2 Hypertension Father Coronary Artery Disease Father Hx of ND Thyroid Sister hx of parathyroid disease/ hx of fibroids other (healthy) Brother other (healthy) Brother Allergies Daughter other (healthy) Daughter other (healthy) Son other (healthy) Son other (healthy) Son other (healthy) Son Colon Cancer Paternal Aunt x5 Colon Cancer Paternal Uncle x8 Estradiol (ESTROGEL) 1.25 gram/actuation glpm 1 application as directed. 1 PUMP TWICE DAILY. APPLY THIN LAYER TO ARM FROM WRIST TO SHOULDER. 1 yr of refills Nizatidine (AXID) 150 mg capsule Take 1 capsule by mouth two times a day. drospirenone, contraceptive, (SLYND) 4 mg (28) tabet Take 1/2 pill daily. Noncontraceptive purpose.Please apply company discount, process as self-pay if insurance does not cover. SYNTHROID 150 mcg tablet Take 1 tablet by mouth once daily. Except 1/2 tab Sun and Sat testosterone in versabase topical cream 1% (CPD) Apply 0.1ml to vulva twice daily albuterol HFA (PROVENTIL HFA) 90 mcg/actuation inhaler Inhale 2 Puffs as instructed every 4 hours as needed. NEEDED FOR SHORTNESS OF BREATH AND WHEEZING Lancets lancets Test blood sugar(s) 2 times [...] METER) monitoring kit 1 Each as needed. ALLERGIES Allergen Reactions Codeine GI Upset, Vomiting Percocet [Oxycodone* Vomiting Solumedrol [Methylp* Mental Status Change Made her rageful Vicodin [Hydrocodon* Vomiting Metformin Other: See Comments Myalgias. Norethindrone GI Upset myalgias, lip/mouth burn, SOB, nausea, dizziness Pepcid [Famotidine * Other: See Comments Dry eyes, mouth, rash, itching, anxiety Tapazole [Methimazo* Hives The medications and allergies were reviewed and reconciled for this patient and deemed current. Lung Cancer Risk Factors: 1.Tobacco Use: Start Age 15, quit for 2 years Quit Age: N/A, Average packs per day 1, Pack Years 40 2. Passive Smoke Exposure: Yes, as a Child and as an Adult 3. Personal hx of malignancy: No, Type of Cancer: 4. Significant exposures (1 year or more of exposure): None, 5. Race: White 6. Education: Some College 7. BMI:Body mass index is 39.87 kg/m . Patient-entered Height: 5'1 Patient-entered Weight: 211 pounds 8. COPD: No 9. Pneumonia in the past 5 years: Yes 10. Is there a history of lung cancer in a first degree relative? No 11. Is there a history of lung cancer in a non-first degree relative? No 12. Is there a history of any other cancer in a first degree relative? Yes, colon cancer in father Health Maintenance Immunization History Administered Date(s) Administered COVID-19 original vaccine, full dose, monovalent (MODERNA) 12/27/2020 influenza (IIV4) vaccine, age 6 mo - 64 yr, quadrivalent (AFLURIA, FLULAVAL, FLUZONE) 01/10/2018 Colonoscopy: 01/28/2017 Mammogram: 07/02/2022 DATA REVIEW I have directly visualized the testing documented:04/23/2016 CT Chest Prior Imaging: Last CT/CTA Chest/Lungs CT CHEST WO IVCON Collected: 04/23/2016 1:52 PM (Final result) Narrative: * * *Final Report* * * DATE OF EXAM: Apr 23 2016 1:52PM [facility] 0541 - CT CHEST WO IVCON / PROCEDURE REASON: multiple diagnoses * * * * Physician Interpretation * * * * RESULT: EXAMINATION: CHEST CT WITHOUT CONTRAST Indication: 50-year-old female with generalized enlarged lymph nodes and shortness of breath. Technique: Spiral CT acquisition of the chest from the thoracic inlet to the upper abdomen without contrast. M: [id number] CT Dose-Length Product: 574 mGy*cm CT Dose Reduction Employed: Yes Comparison: CT chest on 06/05/2013 RESULT: Limitations: None. Lines, tubes, and devices: None. Lung parenchyma and pleura: The central airways are patent. There are a few pulmonary nodules identified. For example, less than 5 mm nodules in the right lung, series 4 images 76, 81 and 115. A tiny 1-2 mm nodule in the left lower lobe, series 4 image 161. No masses. Minimal paraseptal emphysema is present. There is a 1 cm groundglass nodule/opacity in the left upper lobe, series 4 image 37, unchanged compared to prior study. Biapical scarring and subpleural opacities noted, likely post inflammatory. No pleural effusion or pneumothorax. Thoracic inlet, heart, and mediastinum: No supraclavicular, axillary or mediastinal lymphadenopathy. The evaluation of hilar lymph nodes is limited due to lack of intravenous contrast. The thoracic aorta and main pulmonary artery are normal in caliber. The cardiac chambers are normal in size. No coronary artery atherosclerotic calcifications are noted, although the study is not optimized for coronary assessment. No pericardial effusion or thickening. Bones and soft tissues: No destructive bone lesion. Chest wall is unremarkable. Upper abdomen: Limited study through the upper abdomen demonstrates hepatic steatosis. The adrenal glands are stable. Impression: IMPRESSION: A few less than 5 mm solid nodules in the bilateral lungs. These nodules are more clearly visualized on the current study. Stable 1 cm groundglass nodule/opacity in the left upper lung. Provided below is the information for lung nodule management. Hepatic steatosis. National Comprehensive Cancer Network (NCCN) recommended guidelines for follow up of nodules in High Risk patients. Nodule Size (mm) High Risk Patients </= [address] (LDCT) f/u in 12 months for at least 2 years. Consider annual LDCT. >4-6 mm Initial f/u LDCT in 6 months.If no change, f/u in 12 months and then another 12 months. Consider annual LDCT. >6-8 mm Initial f/u LDCT in 3 months.If no change, f/u in 6 months, then 12 months for at least 2 years. Consider annual LDCT. >8 mm Consider PET scan. If low suspicion, f/u in 3 months. If high suspicion, biopsy or excision. NOTE: Should any nodule increase in size on f/u exam, more aggressive workup to include PET scan, biopsy, or excision should be considered. Lap Winding Machine Operator: JEANNA Transcribe Date/Time: Apr 24 2016 7:23P Dictated by : CHELLE MEZA MD This examination was interpreted and the report reviewed and electronically signed by: CHELLE MEZA MD on Apr 24 2016 7:44PM EST Last CT Chest - Impression Only CT CHEST WO [facility] Collected: 04/23/2016 1:52 PM (Final result) Impression: IMPRESSION: A few less than 5 mm solid nodules in the bilateral lungs. These nodules are more clearly visualized on the current study. Stable 1 cm groundglass nodule/opacity in the left upper lung. Provided below is the information for lung nodule management. Hepatic steatosis. ... Last XR Chest - Impression Only XR CHEST PA/LAT Collected: 05/19/2013 2:04 PM (Final result) Pulmonary Function Testing: SPIROMETRY BASELINE ONLY ([id number]) - ordered on 03/13/[address] [place] [address] Test Date: 2020-03-13 Pat Name: MARIBELL GARZON Department: Room: Gender: Female Front End Web Designer: ALONZO Barton : 1965 Requested By: Haily SIBLEY Order Number: [id number] Reading MD: Nacho Carvajal Interpretive Statements ATS acceptability and repeatability standards for DLCO met. DLCO is not hemoglobin corrected. All Lung Volume Repeatability criteria met. ATS/ERS acceptability and repeatability standards for spirometry met. IMPRESSION: The flow volume loop is normal. Spirometry is normal. The increased TLC indicates hyperinflation. The RV and RV/TLC a re elevated indicating air trapping. The diffusing capacity is normal. Electronically Signed On 03-14-2020 17:18:41 EST by Nacho Carvajal Site: WO ID: [id number] Name: MARIBELL GARZON Visit Date: 03/13/2020 Second ID: [id number] Referring Doctor: Haily SIBLEY Front End Web Designer: ALONZO Barton Age: 54 : 1965 Sex: Female Race: Height: 62.25 Inches Weight: 206.80 Lbs BSA: 1.94 Order IDs: [id number] Requested Test(s): Spirometry baseline only Lung Volumes Lung Diffusion Capacity (DLCO) Post Test Comments: ATS acceptability and repeatability standards for DLCO met. DLCO is not hemoglobin corrected. All Lung Volume Repeatability criteria met. ATS/ERS acceptability and repeatability standards for spirometry met. Review Status: Not Reviewed Pre-Bronch Post-Bronch Pred LLN ULN Actual %Pred Actual %Chng DREW METRY FVC (L) 3.14 2.43 3.89 3.39 107 FEV1 (L) 2.51 1.93 3.07 2.55 101 FEV1/FVC (%) 80 69 90 75 93 FEF 25% (L/sec) 4.94 2.80 7.09 4.71 95 FEF 50% (L/sec) 3.80 1.99 5.62 2.64 69 FEF 75% (L/sec) 0.76 0.32 1.65 0.74 98 FEF 25-75% (L/sec) 2.45 1.32 3.90 2.03 83 FEF Max (L/sec) 6.32 5.61 88 FIVC (L) 3.29 FIF 50% (L/sec) 3.78 2.34 5.21 3.56 94 FIF Max (L/sec) 3.67 FET (sec) 7.27 Back Extr ap Vol (L) 0.11 Time To FEFmax (sec) 0.104 LUNG VOLUMES SVC (L) 3.01 3.24 107 IC (L) 2.11 2.84 134 ERV (L) 0.90 0.40 44 TGV (L) 2.68 1.63 3.72 2.97 110 RV (Pleth) (L) 1.78 1.02 2.54 2.57 144 TLC (Pleth) (L) 4.79 3.72 5.86 5.81 121 RV/TLC (Pleth) (%) 37 26 48 44 120 DIFFUSION DLCOunc (ml/min/mmHg) 21.58 15.06 28.10 17.88 82 DL/VA (ml/min/mmHg/L) 4.62 3.30 5.94 3.56 77 VA (L) 4.78 3.67 5.88 5.02 105 BHT (sec) 10.43 IVC (L) 3.12 TLC (SB) (L) 5.17 AIRWAYS RESISTANCE PHYSICAL EXAM: Pulse 83 Wt 95.7 kg (211 lb) LMP 03/10/2010 SpO2 93% BMI 39.87 kg/m Deferred ASSESSMENT and RECOMMENDATIONS: 1. Screening for lung cancer: Six year risk for lung cancer: 1.13% Https://[email or web address].Valensum/tiny/[email or web address] https://youtu.be/[email or web address] I have determined that the patient is eligible for a low dose CT based on age, absence of signs or symptoms of lung cancer, and total pack years: Yes. The patient and I engaged in shared decision making, including the use of one or more decision aids, to include benefits, harms, follow-up diagnostic testing, over-diagnosis, false positive rate, andtotal radiation exposure. The patient understands and feels comfortable with it: Yes. The patient was counseled on the importance of adherence to annual LDCT lung cancer screening, impact of comorbidities and ability or willingness to undergo diagnosis and treatment. The patient understands and feels comfortable with it:Yes. 2. Nicotine dependence: The patient was counseled on the importance of smoking cessation if currentsmoker and, if appropriate, offered additional tobacco cessation counseling services - Smoking Cessation Counseling. SMOKING CESSATION COUNSELING Smoking cessation methods including Behavior Modification were discussed with the patient and assistance offered. Pt does not tolerate medications due to her genetics and metabolism. The medical conditions adversely affected by cigarette use include:COPD, Emphysema, and Lung Cancer. The patient is currently not ready to quit. I personally spent 2 minutes in counseling. The time spent in smoking cessation counseling is exclusive of any other counseling during this visit. Hannah Bass APRN.CNP NPI #: August 30, 2023 11:31 AM documented in this encounterSt. [facility] History of Present illness Narrative* Paul Duron MD - 07/28/2023 4:59 PM EDT I spent a total of 52+ minutes on the date of the service which included preparing to see the patient, [id number] patient care, completing clinical documentation, obtaining and/or reviewing separately obtained history, counseling and educating the patient/family/caregiver, ordering medications, te sts, or procedures, communicating with other HCPs (not separately reported), and independently interpreting results (not separately reported). * Paul uDron MD - 07/28/2023 4:04 PM EDT In office visit, July 28, 2023 Start review of records, labs, interim events 4:04 PM Maribell Garzon is 57 year old. Patient presents with: Follow Up Pap Testing due on 11/25/2023-has appointment set up for her annual in the summer I have been seeing her since 11/[address] Angelo for hormonal concerns. 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 Has had hormonal sensitivities throughout her life, difficulty tolerating any hormonal regimens. Profound PMS symptoms: heart racing, dizzy, muscle tension within 12 hours prior her cycle starting. Within 2 min of bleeding the sxs would resolve, this would occur consistently. States essentially had been in a chair since age 50. Hx of ovarian cysts and likely PCOS (always felt better with high androgens), s/p left oophorectomy for benign reasons (path reviewed). LMP in 2009, age 42-43. Lab confirmed menopause-soon after gynecologic surgery. Debilitating symptoms since surgery, disabled from work, unable to drive. When in menopause many of the symptoms that she would experience premenstrually got much worse. Including arthralgias, told FM, she did notbelieve diagnosis. Anxiety was bad, tried multiple meds. Dry eyes, severe. Burning mouth (goes awaycompletely with the ET). Brain fog. Has been seeing medical providers for multiple concerns. Is hete rozygous for MTHFR mutation, never had a VTE with 6 pregnancies. Did see hematology who said can use estrogen, but prefer transdermals. She has also been dealing with hyperthyroidism.Got her COVID shot around 02/13 and multiple medical issues latter 2020 which she also feels impacted her hormones. 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 We have been trying to get her to tolerate the E2 and P individually, though understands cannot use unopposed estrogen for prolonged periods for endometrial safety. Her prior doctors were offering compounded topical [...] past has varied during our different visits). We did discuss needing to give time prior to dose adjustments. Throughout 2021 got her to tolerate a progestin first (long history of progestin intolerance), and by 03/17 Slynd 1/4 of tab daily was working well for her. For the estrogen, some of the best tolerated w 0.3 ml bid of the biest (04/16) and inc to 1/2 pill of slynd (was feeling better with this dose, driving). Based on my calculation, she was getting approximately 1.2 mg of estradiol, as well as es triol. She was happy with the half pill of the Slynd (2 mg). Since she has always been high testosterone in the past, prior to her surgery, she felt strongly that testosterone replacement will help her best-we were waiting to optimize the estrogen dosing before finalizing decision on trying additional testosterone options outside of below (more dilute dosing so that she can use more frequently (as she had the same issues with the crashing of hormone levels throughout the 24 hours if testosterone used once daily). However has noticed hair loss (prior to use of any testosterone)-discussed mayexacerbate. She has had a lot of setbacks in terms of being able to get her hormones due to cost and compounding pharmacy delays. ........ Previously tried/offered: -Depoprovera couldn't walk. -OCPs multiple sxs of panic/heart racing rushing noises in ear (bathroom fan would sound like an airplane). -Antianxiety medications-tried multiple -Vivelle- too stimulated, even on the 25-50 mcg, q 2-3.5 days. Dose was increased to 50 which helped better with sxs, but legs would swell. Tried 4-6 wks for each. feels heart racing when the estrogen seems to be dropping. Within 2 hours of coming off the patch her HR would come down. [facility] resident care manager rn of Vivelle : feels it depletes too quickly -Combipatch- HR was high 130s sinus tach noted with PCP, so was told her to come off due to possible allergy. Saw cards and EP- told heart is not the problem, but a symptom of what is going on. Came off after 3 days, also felt drunk and dizzy with it. Took 1 mo for the drunken dizzy sensation to goaway. -estrogel- did ok initially, felt Better with twice a day, but at the higher dose legs would swell.3 wks between dose adjustments, she did not like the fact that her HR would go up when waiting 24 hours between doses (felt that she was metabolizing the estrogen quickly). -Divigel start with quarter or less of the packet daily, and slowly move up to the full dose as tolerated-cost prohibitive -Bi est-liked in past, she felt like it was too much. The pharmacist was managing. 3 mg E2/0.5 of E3, she didn't feel comfortable with the way the pharmacist wanted to change the dosing. She felt that it was too E2 heavy. -Biest 08/15 rxed from us, 1 Click 0.25 g (which we typically use for vaginal local low-dose therapy) of the cream and pickle sorter a 1 mL syringe, start with use of 0.1 mL at a time, which she can use twice daily or 3 times daily if even needed. tried for 2 days, because had difficulty with the syringe so she tried the full dose of the 1 click instead.- also limited insurance coverage. The heart started racing and fluctuation symptoms. Was not clear which when she tolerated the best, spoke with our compounding pharmacy. 5 mg dose, which would be dispensed in 1 mL syringes, so that she can use 0.1-0.2 mL, 2-3 times a day as tolerated. -Estratest and NET 0.[address] Trevino- kicked up GERD which she felt pushed into an asthma attack -Prometrium 100 made her feel drunk and dizzy. Tried vaginally too, but bladder spasm. Progesteronecompounded transdermally after 20 mg starts getting similar symptoms (by OSH doctor) -Estradiol p.o. 3 days into crying for no reason (although dr Trevino's notes says this was with FemHRT) -No progestin that she has been able to tolerate until the Slynd,however she does sleep better withthe Prometrium. -Mirena: daughter got hives, and it took a week for someone to remove it, nervous about anything that is not patient controlled. -Testosterone compounded 04/16, goal of 1 mg twice daily-limited by being able to get it quickly atpharmacy. INTERIM UPDATE 07/28/2023: At her 04/17 appointment she was Still on 1/4 pill of Slynd, just received the Estrogel that day (got from [facility]). She had felt best with EstroGel 1 pump twice daily in the past. Plan was also that she would increase her Slynd from quarter pill to half pill around the same time period. We'll determine in the future if needing to start on testosterone based on how she is feeling, which would be 1/10 of Testim (though based on recent testosterone levels limited in how far we can go with dosing). Unfortunately she wasn't able to get any refills on her EstroGel after a few months, but had been feeling better. When using twice a day, the 50 g lasted a little over a month. PAST HISTORY (reviewed and updated): OB History T6 L6 SAB0 IAB0 Ectopic1 Multiple0 Live Births6 Comment: menarche 12 FFTP 15 menopause age 43 ACTIVE PROBLEM LIST Postablative Hypothyroidism hx of low vitamin D Panic Disorder With Agoraphobia Chronic Fatigue Syndrome With Fibromyalgia Blood Pressure Elevated Without History of Htn Impaired Glucose Tolerance Svt (Supraventricular Tachycardia) ([facility]) Ptsd (Post-Traumatic Stress Disorder) Attention Deficit Hyperactivity Disorder (Adhd), Combined Type Recurrent Major Depressive Disorder, in Partial Remission ([facility]) menopause age 43 Tobacco Use Gerd Without Esophagitis Simple Chronic Bronchitis ([facility]) Irritable Bowel Syndrome With Diarrhea Burning Sensation of Mouth Burning Sensation of Skin Sleep Difficulties Mitral Valve Prolapse Estrogen Deficiency Adrenal Adenoma, Left Andressa (Obstructive Sleep Apnea) Nocturnal Oxygen Desaturation 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) Cyp2c9 Intermediate Metabolizer (Hcc) [id number] Rapid Metabolizer (Hcc) Ugt1a1 Intermediate Metabolizer (Hcc) Heterozygous Factor V Leiden Mutation ([facility]) Hormone Deficiency Menopausal and Perimenopausal Disorder Mood Change PAST [...] conflict 03/07/2013 Rectocele 05/13/2009 SVT (supraventricular tachycardia) ([facility]) Has seen cardiology at OSH, many [...] 2 stroke Colon Cancer Father age 64 ND Diabetes Father Type 2 Hypertension Father Coronary Artery Disease Father Hx of ND Thyroid Sister hx of parathyroid disease/ hx [...] History Social History Narrative She lives in [place] [address] 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 I spoke with the genetics team, relevant info in 06/16 note. US 07/14: left oophorectomy, 4 mm endometrium, nl Cotesting 12/12 normal Last 10 Encounter BP Readings: Date: BP: 07/28/2023 151/91 07/07/2023 132/86 06/18/2023 132/82 05/31/2023 124/92 08/06/2022 142/82 06/17/2022 122/78 02/20/2022 132/80 12/31/2021 132/82 12/23/2021 106/72 04/24/2021 165/95 Lab Results Component Value Date TSH 2.080 06/15/2023 TSH 0.771 05/21/2023 TSH 1.060 10/02/2022 TSH 0.61 08/03/2022 TSH 1.580 05/25/2022 TSH 0.856 12/30/2021 B12 506 07/16/2020 B12 483 09/06/2019 B12 576 03/22/2019 B12 683 12/01/2017 B12 622 01/27/2017 B12 453 06/10/2015 VITD25 43.6 07/09/2023 VITD25 11.3 (L) 05/21/2023 VITD25 35.8 08/01/2021 VITD25 16.2 (L) 05/26/2021 VITD25 17.2 (L) 05/20/2020 VITD25 20.7 (L) 06/15/2019 HB 15.2 05/21/2023 HB 15.2 10/02/2022 HB 15.6 (H) 06/17/2022 HB 15.7 (H) 05/25/2022 HB 15.6 (H) 12/31/2021 HB 15.7 (H) 04/24/2021 SARAY 142.0 09/06/2019 SARAY 168.8 06/23/2017 SARAY 172.8 01/27/2017 WBC 10.99 05/21/2023 WBC 10.96 10/02/2022 WBC 11.46 (H) 06/17/2022 WBC 12.95 (H) 05/25/2022 WBC 10.49 12/31/2021 WBC 10.20 04/24/2021 PLT 268 05/21/2023 PLT 288 10/02/2022 PLT 298 06/17/2022 PLT 287 05/25/2022 PLT 314 12/31/2021 PLT 275 04/24/2021 CREAT 0.74 07/09/2023 CREAT 0.76 05/21/2023 CREAT 0.78 05/25/2022 CREAT 0.83 12/31/2021 CREAT 0.72 04/24/2021 CREAT 0.77 05/20/2020 CA 9.4 07/09/2023 CA 9.1 05/21/2023 CA 9.1 05/25/2022 CA 9.9 12/31/2021 CA 9.1 04/24/2021 CA 9.1 05/20/2020 K 4.1 07/09/2023 K 4.1 05/21/2023 K 3.9 05/25/2022 K 4.7 12/31/2021 K 3.7 04/24/2021 K 3.9 05/20/2020 MG 2.0 07/09/2023 MG 1.8 04/24/2021 MG 1.9 05/20/2020 MG 2.1 12/19/2018 MG 2.0 03/09/2018 MG 2.2 11/10/2017 NA 137 07/09/2023 NA 136 05/21/2023 NA 137 05/25/2022 NA 139 12/31/2021 NA 138 04/24/2021 NA 142 05/20/2020 AST 31 07/09/2023 AST 45 (H) 06/15/2023 AST 41 (H) 05/21/2023 AST 22 05/25/2022 AST 26 12/31/2021 AST 22 04/24/2021 ALT 58 (H) 07/09/2023 ALT 75 (H) 06/15/2023 ALT 63 (H) 05/21/2023 ALT 33 05/25/2022 ALT 41 (H) 12/31/2021 ALT 35 04/24/2021 HBA1C 6.3 (H) 05/21/2023 HBA1C 6.1 (H) 05/25/2022 HBA1C 5.9 (H) 12/31/2021 HBA1C 6.0 (H) 05/09/2021 HBA1C 6.0 (H) 12/11/2020 HBA1C 6.0 (H) 05/20/2020 GLUC 145 (H) 07/09/2023 GLUC 107 (H) 05/21/2023 GLUC 143 (H) 05/25/2022 GLUC 81 12/31/2021 GLUC 154 (H) 04/24/2021 GLUC 112 (H) 05/20/2020 LDL 68 12/04/2019 LDL 81 12/10/2017 LDL [...] 06/15/2019 PROG 0.2 01/25/2017 PROG 0.3 08/03/2014 AURFL32L <25 05/20/2020 NSLSS18G <25 12/04/2019 WACRW10T <25 09/06/2019 YYIUN50H <25 08/16/2019 KPOXT70R 46 07/21/2019 KBOMH12Y <25 06/15/2019 SHBG 86 02/02/2023 SHBG 10/06/2011 57 Unit: nmol/L (NOTE) -- REFERENCE VALUE -- 18-144 (non-) Test performed by: [facility], [place], [place], unless otherwise specified above. TESTT 23 02/02/2023 TESTFREE 2.1 02/02/2023 TESTFREE 0.34 05/20/2020 TESTFREE 0.22 12/04/2019 TESTFREE 0.25 09/06/2019 TESTFREE 0.22 08/16/2019 TESTFREE 0.42 06/15/2019 DHEAS 22.7 (L) 06/15/2019 DHEAS 25.7 (L) 12/12/2018 DHEAS 30.8 (L) 01/03/2018 DHEAS 37.4 12/10/2017 DHEAS 32.1 (L) 09/08/2017 DHEAS 21.8 (L) 11/21/2016 PROL 11.0 11/21/2016 PROL 4.8 01/14/2012 PROL 4.1 10/05/2006 Testosterone Date Value Ref Range Status 05/20/2020 31 8 - 60 ng/dL Final Comment: (NOTE) ADDITIONAL INFORMATION Testing performed by Liquid Chromatography-Tandem Mass Spectrometry (LC-MS/MS). This test was developed and its performance characteristics determined by [facility] in a manner consistent with CLIA requirements. This test has not been cleared or approved by the U.S. Food and Drug Administration. 12/04/2019 20 8 - 60 ng/dL Final Comment: (NOTE) ADDITIONAL INFORMATION Testing performed by Liquid Chromatography-Tandem Mass Spectrometry (LC-MS/MS). This test was developed and its performance characteristics determined by [facility] in a manner consistent with CLIA requirements. This test has not been cleared or approved by the U.S. Food and Drug Administration. 09/06/2019 23 8 - 60 ng/dL Final Comment: (NOTE) ADDITIONAL INFORMATION Testing performed by Liquid Chromatography-Tandem Mass Spectrometry (LC-MS/MS). This test was developed and its performance characteristics determined by [facility] in a manner consistent with CLIA requirements. This test has not been cleared or approved by the U.S. Food and Drug Administration. 08/16/2019 22 8 - 60 ng/dL Final Comment: (NOTE) ADDITIONAL INFORMATION Testing performed by Liquid Chromatography-Tandem Mass Spectrometry (LC-MS/MS). This test was developed and its performance characteristics determined by [facility] in a manner consistent with CLIA requirements. This test has not been cleared or approved by the U.S. Food and Drug Administration. 06/15/2019 30 8 - 60 ng/dL Final Comment: (NOTE) ADDITIONAL INFORMATION Testing performed by Liquid Chromatography-Tandem Mass Spectrometry (LC-MS/MS). This test was developed and its performance characteristics determined by [facility] in a manner consistent with CLIA requirements. This test has not been cleared or approved by the U.S. Food and Drug Administration. 12/12/2018 See Comment <40 ng/dL Final Comment: The total testosterone result is 20 ng/dL, the reference range of [facility] is 8 to 60 ng/dL. Disregard [facility] reference range. Interpret the result using the reference range provided by the performing laboratory. Results should not be compared to previously reported results using [facility]'s assay due to differences in methodology. Test performed by: [facility] [address], [place], [place] Testing performed by Liquid Chromatography Tandem Mass Spectrometry. 07/27/2018 30 <40 ng/dL Final 05/17/2018 19 <40 ng/dL Final 01/03/2018 29 <40 ng/dL Final 09/08/2017 39 <40 ng/dL Final Last Bone Density No resulted procedures found. Last Screening Mammogram [facility] SCREENING Exam End: 07/01/2022 2:50 PM (Final result) Narrative: * * *Final Report* * * DATE OF EXAM: Jul 01 2022 2:50PM RADHAW [id number] - [facility] SCREENING / PROCEDURE REASON: Encounter for screening mammogram for breast cancer * * * * Physician Interpretation * * * * RESULT: #[id number] - [facility] SCREENING BILATERAL DIGITAL SCREENING MAMMOGRAM WITH CAD: 07/01/2022 HISTORY: Encounter For Screening Mammogram For Breast Cancer. RESULT: TECHNIQUE: The study was acquired using full field digital technology and interpreted from soft copy. Current study was also evaluated with a Computer Aided Detection (CAD). Comparison is made to exams dated: 06/16/2019 mammogram and 12/24/2015 mammogram - [facility]. There are scattered fibroglandular elements in both breasts. No significant masses, calcifications, or other findings are seen in either breast. There has been no significant interval change. Impression: IMPRESSION: NEGATIVE There is no mammographic evidence of malignancy. A 1 year screening mammogram is recommended. The exam was reviewed by a staff physician. Ruslan Townsend Handbenji Funk. rs,[facility]/penrad:07/01/2022 15:25:18 Svp Of Digital(s): RT Hudson(R)(M), [facility] letter sent: Normal over 40 Mammogram BI-RADS: [...] Health, Family Medicine, and Medical/Surgical Oncology, the [facility] has carefully reviewed the data and [...] their providers when to stop screening mammograms. Lap Winding Machine Operator: Mahamed Transcribe Date/Time: Jul 01 2022 1:57P Dictated by: HAZEL PEREZ MD This examination was interpreted and the [...] Physician Interpretation * * * * RESULT: #[id number] - [facility] DIG DIAG CAD MARIA A BILATERAL DIGITAL DIAGNOSTIC MAMMOGRAM WITH CAD: 12/24/2015 HISTORY: Mastodynia Bilateral/Palpable lump left axilla /Priors available for comparison. RESULT: TECHNIQUE: The study was acquired using full field digital technology and interpreted from soft copy. Current study was also evaluated with a Computer Aided Detection (CAD). Comparison is made to exam dated: 06/07/2013 mammogram - [facility]. There are scattered fibroglandular elements in both breasts. There are benign lymph nodes in both breasts. No significant masses, calcifications, or other findings are seen in either breast. BENIGN There is no mammographic evidence of malignancy. #[id number] - US BREAST INCL AXILLA LTD ULTRASOUND OF LEFT BREAST: 12/24/2015 RESULT: Comparison is made to exam dated: 06/07/2013 mammogram - [facility]. Ultrasound of the left breast was performed. [...] identified. No interval change. Sanjay camacho/mahamed:12/24/2015 10:46:16 Svp Of Digital: Aline CISNEROS)(Anushka), [facility] letter sent: Normal clinical eval OVERALL STUDY BIRADS: 2 Benign Lap Winding Machine Operator: Mahamed Transcribe Date/Time: Dec 24 2015 9:34A [...] Physician Interpretation * * * * RESULT: #[id number] - [facility] DIG DIAG CAD MARIA A BILATERAL DIGITAL DIAGNOSTIC MAMMOGRAM WITH CAD: 12/24/2015 HISTORY: Mastodynia Bilateral/Palpable lump left axilla /Priors available for comparison. RESULT: TECHNIQUE: The study was acquired using full field digital technology and interpreted from soft copy. Current study was also evaluated with a Computer Aided Detection (CAD). Comparison is made to exam dated: 06/07/2013 mammogram - [facility]. There are scattered fibroglandular elements in both breasts. There are benign lymph nodes in both breasts. No significant masses, calcifications, or other findings are seen in either breast. BENIGN There is no mammographic evidence of malignancy. #[id number] - US BREAST INCL AXILLA LTD ULTRASOUND OF LEFT BREAST: 12/24/2015 RESULT: Comparison is made to exam dated: 06/07/2013 mammogram - [facility]. Ultrasound of the left breast was performed. [...] identified. No interval change. 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 She is still on the quarter pill of Slynd. She is not sure if she wants to increase to the half pill. Discussed at the quarter pill need to closely watch endometrium, as this has not been studied in combination with adequate estrogen dosing. Based on how she does at the follow-up, can discuss Testim at that time. Questions answered. May benefit from menopause SMA. She will be seeing for her annual 12/17. Discussed that she should be seen yearly for annual preventive visit, regardless of if Pap is needed. I can continueto see her virtually, but will need to see her in person within 2-3 years. No orders found for this visit on 07/28/23. Paul Duron MD Call if any discussed symptoms not better or worse. Note dictated using voice recognition software. documented in this encounterSt. [facility]04[facility] Instructions* Patient Instructions* Paul Duron MD - 07/28/2023 4:23 PM EDT Images from the original note were not included. Paul Duron MD, [facility] Professor of maintenance and custodian supervisor & Reproductive Biology Staffing Manager & Women's Health [place] Dept of Subspecialty Women's Health IMPORTANT NOTE: we cannot refill prescriptions without a yearly appointment. Appointments OFTEN BOOK OUT SEVERAL months. Please ARRANGE appointments in advance so that prescription refill requests are not INTERUPPTED. Contact info: Scheduling appointments (general Medical Coding Technician call center, best for after hours and less phone tag) and (our [facility]- new and improved resource to schedule for all specialties) General questions to my office: (for paperwork, medical questions etc as opposed to scheduling) Additional scheduling line in my office: (more phone tag, but my office numbers havesome additional appointment options for patients I have seen in the past, called private slots) I see patients in the following locations: Wed & : [place] or virtual Wed, & Wed are my teaching/administrative days, but can add on virtually if an urgent hormonal need arises. Getting an appointment when you need it: Please always start with contacting numbers above for an appointment first. If needing an earlier appointment from what is offered, I can add you to my schedule if you send me a [employer] message. Since [employer] messages go to our nursing teams first, for me to actually see your message, I would recommend sending the message as follows with: 1) brief comment on why appointment needed 2) letting us know that you already tried calling the office and scheduled the first available appointment 3) something like Per our conversation, you mentioned you can add me in for a virtual visit, here are some dates/times in the next few weeks that work for me. It is important to include in your message multiple date/time windows that works for you in the upcoming several weeks, given flexibility in my schedule will vary. Times that are best for me: Mondays-, (virtual only, before 2 preferred) Tuesdays-, (virtual only, before 2 preferred) Wednesdays (most busy day for me, but all numbers above except for call center know about my hiddenprivate slots they can offer) 9:30 (virtual) or 2:00-3:30 (virtual or [place] A81) Fridays 9-4 (virtual only, before 2 preferred) Please set up an established relationship with any of my Medical Coding Technician colleagues for your general coding technician needs,including preventive annuals, as I work as a outreach consultant for the specialty hormonal concerns. For typical gynecologic concerns (bleeding, vaginal infections, preventive annual etc), I work with an amazing group of doctors and nurse practitioners as a team, as well as the [facility] visits that are available online or at walk-in clinics throughout [facility]. If you don't get a timely response from me, please don't hesitate to be persistent! Occasionally wemay have nurses and schedulers helping out temporarily in our office, causing some delays in getting the message to me. [employer] messages are allowed a 3 business day turnaround. For more urgent matter s, it is always best to contact the [...] can also be uploaded by patients via [employer] (will need to send a message notifying us that you have uploaded them). Thank you for allowing me to participate in your care! New way to get personalized answers to your questions about hormones! From the office of Paul Duron MD, Women's Health Specialist Please note an exciting new option that I think is going to be great resource for our patients. Starting Apr 2023, I will be running weekly group virtual menopause visits (for new or established patients, including those following up with my partners for their coding technician/menopause care).These are also called shared medical appointments, or SMAs. We will cover all things hormonal, including perimenopause, menopause, sexual and bone health, for a 90 minute visit. Hormonal concerns are often complex, Mery find that the typical office visit may not give me enough time to address all of my patient's concerns. This is a great way for me to have more time with my patients, and patients to learn from each other's experiences too. I conducted women's health group visits for 15 years (before [facility]), and they were a lot of fun! Patients liked the fact that they got answers to questions that they did notthink to ask. Why are we doing this? There are roughly 6000 women in the [place] going into menopause every day. Yet, there are only 1500+ certified menopause specialists around the world! Women's needs during this time are very individualized and decisions can be quite complex, leading to a lot of misinformation. Women have questions, we've got answers, but there are far too few of us to reach everyone, so we are looking for creative ways to provide comprehensive care. What is the cost? Although this is a longer visit, it is not billed as a long or complex visit. This will be billed to insurance like a typical short office visit. To ensure we keep visit costs low for patients, I will not be prescribing meds or ordering labs at these visits- the focus will be educational and getting answers to common questions. How do I schedule an appointment for these visits? The video group SMAs are every 10:30 AM to noon, and any [facility] scheduler shouldbe able to schedule this. We are working to streamline the scheduling process, but in the interim if there are any scheduling challenges, xiong phrases that can help the cutting and printing machine operator are to look for my 10:30 AM Medical Coding Technician Main template. is the best number to call to schedule, but can also call . What else should I know about these? 1) You will be in a virtual group Zoom video call with other patients, our women's health nurse specialist, and me. 2) A Hormonal Health Questionnaire will need to be filled out in in advance of the visit (will be sent via [employer]). This ensures that I understand each patient's unique circumstances, and that the info I have is up to date, so that I can provide personalized responses to questions. 3) I will not be ordering labs or managing medications, but focus will be on education/answering questions Hope you consider trying it out! Paul Duron MD Colon cancer screening is offered routinely starting at age 45, earlier if there is a family familyhistory or symptoms. With a family history of [...] regular primary care doctor. documented in this encounterSt. [facility]03-18-[facility]24 History of Present illness Narrative* Freddy Nava MD - 07/12/2023 6:08 PM EDT Patient presents with: Follow Up HPI:This Team Access Model visit is a virtual encounter. It required patient- provider interaction for the medical decision making as documented below. Patient has elected to have a visit through distance medicine I have communicated my name and active licensure. The patient's identity and physical location wereverified at the time of this visit. Either the patient or their legal high school admissions representative has been informed of the risks and benefits of -- and alternatives to -- treatment through a remote evaluation andconsents to proceed with the evaluation remotely. Just seen five days ago for her chronic complaints. She is seeing me today to go over labs which were normal. At last ov we put in referrals for lung cancer screening clinic and high man at . We also had decided to have her return to see sleep med rather than a titration study. Ultrasound of liver shows fatty liver. Lfts are improving. Her sugars were elevated but recent A1c was 6.3. have discussed weigh reduction previously and dietto help with both. She cut out frozen cokes. Vit d has been corrected. Still with burning across her body and her edema. We discussed that she does feel better with hormones but cannot tolerate them. She is debating trying hormone pellets Latest Ref Rng 07/09/2023 Glucose 74 - 99 mg/dL 145 (H) BUN 7 - 21 mg/dL 12 Creatinine 0.58 - 0.96 mg/dL 0.74 Sodium 136 - 144 mmol/L 137 Potassium 3.7 - 5.1 mmol/L 4.1 Chloride 97 - 105 mmol/L 105 CO2 22 - 30 mmol/L 25 Anion Gap 9 - 18 mmol/L 7 (L) Calcium 8.5 - 10.2 mg/dL 9.4 eGFR >=60 mL/min/1.73m 95 Albumin 3.9 - 4.9 g/dL 4.2 Bilirubin, Total 0.2 - 1.3 mg/dL 0.3 Bilirubin, Conjug <0.2 mg/dL <0.2 Alkaline Phosphatase 34 - 123 U/L 95 AST 13 - 35 U/L 31 ALT 7 - 38 U/L 58 (H) Protein, Total 6.3 - 8.0 g/dL 7.3 Normalized Calcium 1.08 - 1.30 mmol/L 1.22 Ionized Calcium 1.08 - 1.30 mmol/L 1.26 Vitamin D 25 Hydroxy 31.0 - 80.0 ng/mL 43.6 Magnesium 1.7 - 2.3 mg/dL 2.0 Phosphorus 2.7 - 4.8 mg/dL 3.7 PTH, Intact 15 - 65 pg/mL 35 NT Pro BNP <125 pg/mL <36 Legend: (H) High (L) Low MEDICATIONS: Current Outpatient Medications Medication Sig Nizatidine (AXID) 150 mg capsule Take 1 capsule by mouth two times a day. Estradiol (ESTROGEL) 1.25 gram/actuation glpm 1 application as directed. 1 PUMP TWICE DAILY. APPLY THIN LAYER TO ARM FROM WRIST TO SHOULDER. Prior authorization will be needed. Has tried every other FDA approved treatment with side effects (see my note) drospirenone, contraceptive, (SLYND) 4 mg (28) tabet Take 1/2 pill daily. Noncontraceptive purpose.Please apply company discount, process as self-pay if [...] 2 stroke Colon Cancer Father age 64 ND Diabetes Father Type 2 Hypertension Father Coronary Artery Disease Father Hx of [place] Thyroid Sister hx of parathyroid disease/ hx [...] past medical history, surgical history, family history andsocial history today. REVIEW OF SYSTEMS All other reviewed and negative other than HPI. VITALS: LMP 03/10/2010 Last 4 Encounter Wt Readings: Date: Wt: 07/07/2023 95.6 kg (210 lb 12.8 oz) 06/18/2023 95.7 kg (211 lb) 05/31/2023 96.2 kg (212 lb) 08/06/2022 94.8 kg (209 lb) PHYSICAL EXAMINATION: Patient is alert and oriented during visit. Answers appropriately. ASSESSMENT/PLAN: 1. Prediabetes - ICD9: 790.29, ICD10: R73.03 (primary diagnosis) - get labs in three months. - HGB A1C 2. Vitamin D deficiency - ICD9: 268.9, ICD10: E55.9 - VITAMIN D 25 HYDROXY 3. Hormone deficiency - ICD9: [id number], ICD10: E34.9 Follow with endo 4. 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 - LIPID PANEL BASIC - TSH BLD Freddy Nava MD documented in this encounterSt. [facility] Hospital03-18-2024 Miscellaneous Notes* Telephone Encounter - Yarelis Peñaloza LPN - 07/12/2023 2:45 PM EDT Spoke with Dr. Nava, as discussed in last office visit, she is to see Neurology, Dr. Carnes first. Telephone call to patient to notify her of this, verbalized understanding. Already has an appointmentscheduled with neurology. Faxed consult to number provided by patient to Dr. Calvo at documented in this encounterSt. [facility] Hospital03-13-2024 History of Present illness Narrative* Freddy Nava MD - 07/07/2023 4:22 PM EDT Patient presents with: Follow Up HPI: Patient presents today for office visit for follow up. Had HSAT that came back showing mild obstructive sleep apnea. Due to her nighttime hypoxia an in-lab study is recommended. Maguechan Adkins placed consult. Not scheduled. She has had issues tolerating cpap in the past. She was questioning whether it is obstructive or central sleep apnea. Has seen sleep med here in the past. Also remotely was told she had an Arnold chiari malformation. Last mri was not significant. Has chronic fatigue, occasional headaches and paresthesia sensations. She would liketo see sleep med/neuro again. Mentions swelling to B/L legs from knees down. By the end of the day swelling is bad. States she ispuffy all over and has pitting edema all over her body. Has been taking Vitamin D 56605 units weekly. Vit d was low. When she takes it, she initially feels well but then she feels worse and legs swell.They do not go down at night but is urinating more. Weight is stable. When she is up it does go down. She is concerned she may have a calcium issue Saw a high man in the past at [facility] to discuss her 23 and me results and issues taking meds. She requests to see a high man at . MEDICATIONS: Current Outpatient Medications Medication Sig Nizatidine (AXID) 150 mg capsule Take 1 capsule by mouth two times a day. Estradiol (ESTROGEL) 1.25 gram/actuation glpm 1 application as directed. 1 PUMP TWICE DAILY. APPLY THIN LAYER TO ARM FROM WRIST TO SHOULDER. Prior authorization will be needed. Has tried every other FDA approved treatment with side effects (see my note) drospirenone, contraceptive, (SLYND) 4 mg (28) tabet Take 1/2 pill daily. Noncontraceptive purpose.Please apply company discount, process as self-pay if [...] 2 stroke Colon Cancer Father age 64 ND Diabetes Father Type 2 Hypertension Father Coronary Artery Disease Father Hx of [place] Thyroid Sister hx of parathyroid disease/ hx [...] past medical history, surgical history, family history andsocial history today. REVIEW OF SYSTEMS All other reviewed and negative other than HPI. HEALTH MAINTENANCE: Reviewed health maintenance issues today and recommended the following in detail. Lung Cancer Screening due on 04/23/2017 VITALS: BP 132/86 Pulse 88 Ht 159.4 cm (5' 2.75) Wt 95.6 kg (210 lb 12.8 oz) LMP 03/10/2010 EmH113% BMI 37.64 kg/m Last 4 Encounter Wt Readings: Date: Wt: 06/18/2023 95.7 kg (211 lb) 05/31/2023 96.2 kg (212 lb) 08/06/2022 94.8 kg (209 lb) 06/17/2022 94.3 kg (208 lb) PHYSICAL EXAMINATION: General appearance: Well appearing, alert, in no acute distress, well-hydrated, well nourished. Skin: Skin color, texture, turgor normal, no suspicious rashes or lesions Lungs: Lungs clear to auscultation. No wheezing, rhonchi, rales Heart: RRR without murmur, gallop, or rubs. No ectopy Abdomen: Normal abdominal exam, Abdomen soft, non-tender. Bowel sounds normal. No masses, organomegaly Extremities: No deformities, new edema, skin discoloration, clubbing or cyanosis. Good capillary refill. ASSESSMENT/PLAN: 1. Edema, unspecified type - ICD9: 782.3, ICD10: R60.9 (primary diagnosis) - she may try low dosed vit d instead of high dosed. Check labs. - BASIC METABOLIC PNL - NT PRO BNP 2. Nocturnal oxygen desaturation - ICD9: 327.24, ICD10: G47.34 - CONSULT TO NON-CCF FACILITY - CONSULT TO NEUROLOGY 3. ANDRESSA (obstructive sleep apnea) - ICD9: 327.23, ICD10: G47.33 - CONSULT TO NON-CCF FACILITY - CONSULT TO NEUROLOGY 4. Chronic fatigue syndrome with fibromyalgia - ICD9: 780.71, 729.1, ICD10: G93.32, M79.7 5. CYP2B6 intermediate metabolizer (HCC) - ICD9: 277.89, ICD10: E88.89 -see high man 6. [id number] rapid metabolizer (HCC) - ICD9: 277.89, ICD10: E88.89 - as above. 7. UGT1A1 intermediate metabolizer (HCC) - ICD9: 277.89, ICD10: E88.89 -as a oe. 8. Fatigue, unspecified type - ICD9: 780.79, ICD10: R53.83 - as above 9. Arnold-Chiari deformity (HCC) - ICD9: 741.00, ICD10: Q07.00 - CONSULT TO NEUROLOGY 10. Paresthesia - ICD9: 782.0, ICD10: R20.2 - CONSULT TO NEUROLOGY 11. Vitamin D deficiency - ICD9: 268.9, ICD10: E55.9 - CALCIUM IONIZED BLOOD - MAGNESIUM BLD - PHOSPHORUS INORGANIC - PTH INTACT BLD 12. Tobacco use - ICD9: 305.1, ICD10: Z72.0 - CONSULT LUNG [facility] SCRE[facility]ING [facility] Freddy Nava MD documented in this encounterSt. [facility]03-[facility]24 Miscellaneous Notes* Telephone Encounter - Gisell Beard RN - 07/07/2023 9:43 AM EDT Needs to be requested by patient via mychart Gisell Beard RN July 07, 2023 9:43 AM * Telephone Encounter - Allison Dong - 07/06/2023 2:57 PM EDT Reason for call: prescription refill Provider name: Paul Duron MD Additional comments: [facility] faxed refill request for Estrogel. Letter scan into [facility] Recommendation: routed to nurse triage pool Last visit in this department: Visit date not found Last distance health visit in this department: 12/18/2021 Paul Duron MD Next visit in this department: Visit date not found documented in this encounterSt. Elizabeth Hospital03-07-2024 History of Present illness Narrative* Alysa German RDMS - 07/01/2023 7:00 AM EST Radiology Service Progress Note PATIENT NAME: Maribell Garzon DATE OF SERVICE: July 01, 2023 TIME: 7:32 AM PATIENT IDENTITY VERIFICATION COMPLETED USING TWO (2) IDENTIFIERS: Name and Date of confirmedby patient verbally. FALL SCREENING: Has the patient had 2 falls in the last year or 1 fall with injury or currently using an Ambulatory Assistive Device (Walker, Cane, Wheelchair, Crutches, etc.)? No PATIENT GENDER DATA: Female. status: : No status: NO. PATIENT RELEVANT IMPLANT DATA REVIEWED: Not Applicable PATIENT PRESENTS WITH AN IMPLANTABLE OR ATTACHED INSTALLATION TECH: No RADIOLOGY DEPARTMENT: Ultrasound PERIPHERAL IV DATA: Not applicable SIGNED BY: Alysa German RDMS July 01, 2023 7:32 AM documented in this encounterSt. Elizabeth Hospital03-01-2024 Miscellaneous Notes* Telephone Encounter - Yarelis Adkins APRN.CNS - 06/25/2023 3:26 PM EST Please let patient know that sleep study showed mild sleep apnea. Due to her nighttime hypoxia, andin lab study should be completed. Consult was placed. 1. This study confirms a diagnosis of at least mild obstructive sleep apnea. 2. The results of this study may represent an underestimation of the degree of obstructive sleep apnea, especially hypopneas, because of the known limitations of HSAT, such as inability to record arousals because EEG is not recorded. 3. Treatment of mild sleep apnea can include weight loss, positional therapy, treatment of allergies, oral appliance therapy or ENT evaluation of any airway abnormalities. PAP therapy may be considered in patients with documented symptoms of daytime sleepiness, impaired cognition, mood disorder, insomnia, or documented hypertension, ischemic heart disease, or history of stroke. 4. Hypoxia was noted, even in the absence of respiratory events. It is uncertain if this represents true hypoxia or technical artifact. An in-lab sleep study or nocturnal pulse oximetry may help to clarify whether or not there is true hypoxia. documented in this encounterSt. Elizabeth Hospital02-27-2024 History of Present illness Narrative* Maury Hainse - 06/22/2023 3:10 PM EST Date: June 22, 2023 Name: Maribell Garzon Comments: HST was returned in working order with all sleep questionnaires Maury Haines * Franca Stewart - 06/16/2023 12:07 PM EST Nomad# [id number] , date shipped out 06/16 Tracking mailout:[id number] [employer] Tracking return: [id number] * Dalton Valdez III, PhD - 06/16/2023 12:03 AM EST June 16, 2023 Standing PSG Orders signed in the last 90 days None Future PSG Orders signed in the last 90 days Ordered Auth. provider HOME SLEEP APNEA TEST (HSAT) [[id number]] 05/20/23 Freddy Nava MD Assoc. diagnoses: ANDRESSA (obstructive sleep apnea) [G47.33] Q: Indications: A: Obstructive sleep apnea Q: STOP-BANG conditions - Select All That Apply: A: BMI > 35 kg/m2 A2: AGE > 50 A3: SNORING that is loud or disruptive A4: TIREDNESS, fatigue or sleepiness during the day Q: Current use of supplemental oxygen during sleep period?: A: Yes Q: Supplemental oxygen will mask the appearance of respiratory events. Indicate whether oxygen may be held during testing.: A: Yes All Prior Sleep Studies (past 365 days) Some values may be hidden. Unless noted otherwise, only the newest values recorded on each date aredisplayed. Sleep Studies HOME SLEEP APNEA TEST (HSAT) Future Expected: Expires: 05/19/24 BMI Readings from Last 2 Encounters: 05/31/23 : 37.85 kg/m 08/06/22 : 37.32 kg/m PAST MEDICAL HISTORY Diagnosis Date Abdominal pain, [...] conflict 03/07/2013 Rectocele 05/13/2009 SVT (supraventricular tachycardia) Has seen cardiology at OSH, many episodes [...] change. - Tele Tobacco use Weight gain The medical record was reviewed to determine if the proposed sleep study conforms to the AASM Practice Parameters for the Indications for Polysomnography and Related Procedures, or if the sleep studyis indicated for other reasons. Indications for study: ANDRESSA suspected without comorbid medical or sleep disorders Sleep study to be performed: Home Sleep Apnea Test (HSAT) Special instructions: None-follow laboratory protocol Joaquín Maynor [facility] Staff Note: I have read the above protocol, edited as needed, and agree to the plan. Dalton Valdez III, PhD 8:40 AM, 06/16/2023 * Maury Haines - 06/15/2023 10:28 PM EST Nomad# , Date shipped out: SENT FEDEX DELIVERY - [employer] RETURN Tracking mailout: [id number] Tracking return: [id number] * Anuradha Elmore - 06/14/2023 5:31 PM EST June 14, 2023 An order has been received for Home Sleep Apnea Test (HSAT) from Freddy Cedillo MD , a B. [facility] Staff. Visit prep complete. Comments :No The sleep study is scheduled for 06/18. Insurance: Payor: [facility] MEDICAID / Plan: [facility] MEDICAID / Product Type: Medicaid / Payer/Plan Subscr Sex Relation Sub. Ins. ID Effective Group Num 1. [facility] MARIBELL GARZON 1965 Female Self [id number] 05/27/22 [facility] [address] Anuradha Elmore documented in this encounterSt. Elizabeth Hospital02-23-2024 History of Present illness Narrative* Freddy Nava MD - 06/18/2023 4:20 PM EST Patient presents with: Fatigue Edema: Legs swollen this week. HPI: Patient presents today for office visit for follow up. Edema: Legs were swollen after taking the Vitamin D. Better today for the first time this week. Legs were swollen after being in bed all night also hadn't been up on them. Discussed changing her vit d prep and trying it instead Legs are better. No chest pain or shortness of breath. Fatigue: see previous work up. Changed her diet to a low sugar diet. Sugars have been improving. Continues to use nocturnal oxygen. Is hypoxic at night. Have done sleep studies. Have confirmed hypoxia without it. Benefits from its use. See previous ov: Burning all over skin. Tingling feet, hands. Seems neurological? Some type of deficiency, like Vit D? Feels like sunburn. Recently diagnosed with vit d def. Has not started yet. Had similar symptoms years ago when vit d was low. Right leg swelling intermittently. No redness or warmth. HOSPITAL/ER FOLLOW UP: Reason for visit: burning to skin and cramping Which facility: [facility](report in scanned documents) Date of visit: 05/27/23 Diagnosis: muscle spasms, hypothyroidism, paraesthesias Testing done: CBC, TSH 2.58, BMP Treatment given: no changes made Current symptoms: still with same MEDICATIONS: Current Outpatient Medications Medication Sig ergocalciferol 50,000 unit capsule (VITAMIN D2, DRISDOL) Take 1 capsule by mouth one time a week. Nizatidine (AXID) 150 mg capsule Take 1 capsule by mouth two times a day. Estradiol (ESTROGEL) 1.25 gram/actuation glpm 1 application as directed. 1 PUMP TWICE DAILY. APPLY THIN LAYER TO ARM FROM WRIST TO SHOULDER. Prior authorization will be needed. Has tried every other FDA approved treatment with side effects (see my note) drospirenone, contraceptive, (SLYND) 4 mg (28) tabet Take 1/2 pill daily. Noncontraceptive purpose.Please apply company discount, process as self-pay if [...] conflict 03/07/2013 Rectocele 05/13/2009 SVT (supraventricular tachycardia) Has seen cardiology at OSH, many episodes [...] 2 stroke Colon Cancer Father age 64 [place] Diabetes Father Type 2 Hypertension Father Coronary Artery Disease Father Hx of [place] Thyroid Sister hx of parathyroid disease/ hx [...] past medical history, surgical history, family history andsocial history today. REVIEW OF SYSTEMS All other reviewed and negative other than HPI. HEALTH MAINTENANCE: Reviewed health maintenance issues today and recommended the following in detail. Lung Cancer Screening due on 04/23/2017 Pap Testing due on 11/25/2023 HPV Testing due on 11/25/2023 VITALS: BP 132/82 Pulse 109 Wt 95.7 kg (211 lb) LMP 03/10/2010 SpO2 95% BMI 37.68 kg/m Last 4 Encounter Wt Readings: Date: Wt: 05/31/2023 96.2 kg (212 lb) 08/06/2022 94.8 kg (209 lb) 06/17/2022 94.3 kg (208 lb) 02/20/2022 95.1 kg (209 lb 9.6 oz) PHYSICAL EXAMINATION: General appearance: Well appearing, alert, in no acute distress, well-hydrated, well nourished. Skin: Skin color, texture, turgor normal, no suspicious rashes or lesions Lungs: Lungs clear to auscultation. No wheezing, rhonchi, rales Heart: RRR without murmur, gallop, or rubs. No ectopy Abdomen: Normal abdominal exam, Abdomen soft, non-tender. Bowel sounds normal. No masses, organomegaly Extremities: No deformities, edema, skin discoloration, clubbing or cyanosis. Good capillary refill. ASSESSMENT/PLAN: 1. Elevated liver enzymes - ICD9: 790.5, ICD10: R74.8 (primary diagnosis) - work on weight loss. - US ABD RIGHT UPPER QUADRANT - HEPATIC FUNCTION PNL 2. Vitamin D deficiency - ICD9: 268.9, ICD10: E55.9 -- will follow. Change prep of vit d 3. Burning sensation of skin - ICD9: 782.0, ICD10: R20.8 - as above. 4. ANDRESSA (obstructive sleep apnea) - ICD9: 327.23, ICD10: G47.33 Benefits from nocturnal oxygen. 5. Nocturnal oxygen desaturation - ICD9: 327.24, ICD10: G47.34 - as above Freddy Nava MD documented in this encounterSt. [facility] Hospital02-05-2024 History of Present illness Narrative* Freddy Nava MD - 05/31/2023 3:16 PM EST Patient presents with: Leg Cramps cramping HPI: Patient presents today for office visit for follow up. Burning all over skin. Tingling feet, hands. Seems neurological? Some type of deficiency, like Vit D? Feels like sunburn. Recently diagnosed with vit d def. Has not started yet. Had similar symptoms years ago when vit d was low. Right leg swelling intermittently. No redness or warmth. HOSPITAL/ER FOLLOW UP: Reason for visit: burning to skin and cramping Which facility: [facility](report in scanned documents) Date of visit: 05/27/23 Diagnosis: muscle spasms, hypothyroidism, paraesthesias Testing done: CBC, TSH 2.58, BMP Treatment given: no changes made Current symptoms: still with same Component Latest Ref Rng & Units 05/21/2023 WBC 3.70 - 11.00 k/uL 10.99 RBC 3.90 - 5.20 m/uL 4.76 Hemoglobin 11.5 - 15.5 g/dL 15.2 Hematocrit 36.0 - 46.0 % 46.0 MCV 80.0 - 100.0 fL 96.6 MCH 26.0 - 34.0 pg 31.9 MCHC 30.5 - 36.0 g/dL 33.0 RDW-CV 11.5 - 15.0 % 12.3 Platelet Count 150 - 400 k/uL 268 MPV 9.0 - 12.7 fL 9.7 Neut% % 50.9 Abs Neut (ANC) 1.45 - 7.50 k/uL 5.59 Lymph% % 35.5 Abs Lymph 1.00 - 4.00 k/uL 3.90 [place]% % 9.3 Abs [place] <0.87 k/uL 1.02 (H) Eosin% % 3.2 Abs Eosin <0.46 k/uL 0.35 Baso% % 0.5 Abs Baso <0.11 k/uL 0.06 Immature Gran % % 0.6 IMMATURE GRANS (ABS) <0.10 k/uL 0.07 NRBC /100 WBC 0.0 Absolute nRBC <0.01 k/uL <0.01 DTYPE Auto Protein, Total 6.3 - 8.0 g/dL 7.0 Albumin 3.9 - 4.9 g/dL 4.0 Calcium 8.5 - 10.2 mg/dL 9.1 Bilirubin, Total 0.2 - 1.3 mg/dL 0.3 Alkaline Phosphatase 34 - 123 U/L 88 AST 13 - 35 U/L 41 (H) ALT 7 - 38 U/L 63 (H) Glucose 74 - 99 mg/dL 107 (H) BUN 7 - 21 mg/dL 9 Creatinine 0.58 - 0.96 mg/dL 0.76 Sodium 136 - 144 mmol/L 136 Potassium 3.7 - 5.1 mmol/L 4.1 Chloride 97 - 105 mmol/L 103 CO2 22 - 30 mmol/L 24 Anion Gap 9 - 18 mmol/L 9 eGFR >=60 mL/min/1.73m 92 Hemoglobin A1C 4.3 - 5.6 % 6.3 (H) Estimated Average Glucose mg/dL 134 TSH 0.270 - 4.200 mIU/L 0.771 Free T4 0.9 - 1.7 ng/dL 1.5 WSR 0 - 20 mm/hr 12 Vitamin D 25 Hydroxy 31.0 - 80.0 ng/mL 11.3 (L) MEDICATIONS: Current Outpatient Medications Medication Sig ergocalciferol 50,000 unit capsule (VITAMIN D2, DRISDOL) Take 1 capsule by mouth one time a week. Nizatidine (AXID) 150 mg capsule Take 1 capsule by mouth two times a day. Estradiol (ESTROGEL) 1.25 gram/actuation glpm 1 application as directed. 1 PUMP TWICE DAILY. APPLY THIN LAYER TO ARM FROM WRIST TO SHOULDER. Prior authorization will be needed. Has tried every other FDA approved treatment with side effects (see my note) drospirenone, contraceptive, (SLYND) 4 mg (28) tabet Take 1/2 pill daily. Noncontraceptive purpose.Please apply company discount, process as self-pay if [...] 2 stroke Colon Cancer Father age 64 [place] Diabetes Father Type 2 Hypertension Father Coronary Artery Disease Father Hx of [place] Thyroid Sister hx of parathyroid disease/ hx [...] past medical history, surgical history, family history andsocial history today. REVIEW OF SYSTEMS All other reviewed and negative other than HPI. VITALS: BP 124/92 Pulse (!) 122 Wt 96.2 kg (212 lb) LMP 03/10/2010 SpO2 93% BMI 37.85 kg/m Last 4 Encounter Wt Readings: Date: Wt: 08/06/2022 94.8 kg (209 lb) 06/17/2022 94.3 kg (208 lb) 02/20/2022 95.1 kg (209 lb 9.6 oz) 12/31/2021 94.3 kg (208 lb) PHYSICAL EXAMINATION: General appearance: Well appearing, alert, in no acute distress, well-hydrated, well nourished. Skin: Skin color, texture, turgor normal, no suspicious rashes or lesions Lungs: Lungs clear to auscultation. No wheezing, rhonchi, rales Heart: RRR without murmur, gallop, or rubs. No ectopy Abdomen: Normal abdominal exam, Abdomen soft, non-tender. Bowel sounds normal. No masses, organomegaly Extremities: No deformities, edema, skin discoloration, clubbing or cyanosis. Good capillary refill. , No cords. No calf tenderness. Asia's sign negative. ASSESSMENT/PLAN: 1. Vitamin D deficiency - ICD9: 268.9, ICD10: E55.9 (primary diagnosis) - start vit and keep labs and follow up as scheduled. Can consider emg etc if continues. Call if any worsening. 2. Burning sensation of skin - ICD9: 782.0, ICD10: R20.8 - as above. Freddy Nava MD documented in this encounterSt. Elizabeth Hospital02-01-2024 Miscellaneous Notes* Telephone Encounter - Samantha Simon RN - 05/27/2023 3:10 PM EST Spoke with patient. She adamantly declines ER. 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 She complains of bilateral leg cramping and intermittent right leg swelling. She states the leg swelling and cramping comes and goes. Right leg swelling decreases with rest and elevation. She denies redness, warmth, tenderness, calf pain. She says I wonder if this is related to my elevated liver enzymes or my endocrine system? She states I know I don't have a blood clot. She says she will waituntil PCP back in office for recommendation. Advised appointment and offered first available appointment with PCP. She is agreeable. Scheduled in office appointment 05/31 @ 3:20 PM. She states she will go to ER if symptoms worsen. Samantha Simon RN * Telephone Encounter - Sudeep Dominguez MD - 05/27/2023 3:03 PM EST Recommend [facility] ER. * Telephone Encounter - Yarelis Peñaloza LPN - 05/27/2023 2:53 PM EST Tried contacting patient by phone, no answer. brick[employer]mobile message was sent in by patient, trying to call in about legs. Due to phone line problem call did not go through. Sending to Doctor assistant construction superintendent since Dr. Nava out. Please review and advise. * Telephone Encounter - Pati Cohen - 05/27/2023 1:38 PM EST Spoke with patient to schedule appointments. She stated she was having massive cramps in both legs and her right leg is swelling, please advise. * Telephone Encounter - Sudha Pink LPN - 05/27/2023 12:[address] PM EST Message from Dr Nava virtual visit. Ordered a home sleep study Get follow up in six weeks in office with Dr Nava. documented in this encounterSt. Elizabeth Hospital02-01-2024 Miscellaneous Notes* Telephone Encounter - Yarelis Peñaloza LPN - 05/27/2023 2:48 PM EST See TE documented in this encounterSt. Elizabeth Hospital12-01-2023 History of Present illness Narrative* Paul Duron MD - 03/26/2023 10:14 AM EST I spent a total of 31+ minutes on the date of the service which included preparing to see the patient, [id number] patient care, completing clinical documentation, obtaining and/or reviewing separately obtained history, counseling and educating the patient/family/caregiver, independently interpreti ng results (not separately reported), and communicating results to the patient/family/caregiver. Myname and active licensure communicated. The patient's identity and physical location were verified at the time of this visit. Either the patient or their legal high school admissions representative has been informed of the risks and benefits of -- and alternatives to -- treatment through a remote evaluation and consents to proceed with the evaluation remotely. * Paul Duron MD - 03/26/2023 9:39 AM EST Virtual visit, March 26, 2023 Start review [...] the cyst was resolved, she was right. Didn'tneed the surgery. However she did have left oophorectomy for benign reasons. LMP in 2009, age 42-43. Lab confirmed menopause-soon after gynecologic surgery. Since then symptoms are debilitating, disabled and cannot leave her house, difficult for her to drive. When in menopause many of the symptoms that she would experience premenstrually got much worse. Including arthralgias, told FM, she did notbelieve diagnosis. Anxiety was bad, tried multiple meds. [...] topical progesterone with ultrasound monitoring of the endometrium- discussed ultrasound cannot rule outcancer, and transdermal compounded progestin formulations may not [...] tolerate being on it typically within 1-2 weeks,or sometimes even earlier. She felt well with high testosterone in the past (prior to her surgery).Feels the EstroGel twice daily was well-tolerated (was [...] best on 37.5 patch in the past. Almo that it was not enough, so on [...] help her best. Prescribed testosterone at low, moredilute dosing so that she can use more frequently (as she had the same issues with the crashing of hormone levels throughout the 24 hours if testosterone used once daily). Will continue to prescribe with syringes instead of metered-dose dispenser. 04/16 Rxed testosterone therapy aimed at 1 mg twice daily, and she will increase as tolerated. By the 05/18 appointment, the pharmacy couldn't get theHT for 3 wks, she was hormone free [...] on the 0.3 ml bid of the biest,5-6 wks, continuing 1/2 pill Slynd throughout. Symptoms [...] patch her HR would come down. 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 Saw cards and EP- told heart is not the problem, but a symptom of what is going on. Came off after 3 days, also felt drunk and dizzy with it. After she stopped taking it states took 1 mo forthe drunken dizzy sensation to go away. estrogel- [...] it was too much. The pharmacist was managing.3 mg E2/0.5 of E3, she didn't feel comfortable with the way the pharmacist wanted to change the dosing. She felt that it was too E2 heavy. biest 08/15 rxed from us, 1 Click 0.25 g (which we typically use for vaginal local low-dose therapy)of the cream and pickle sorter a 1 mL syringe, start with use [...] time locally, related to pharmacy staffing shortages andher insurance coverage. Ran out of the testosterone, similar problems with pharmacy due to compounding. Even family notices difference when she runs out of her hormones, asks her why she doesn't get up out of bed. She really had felt best with EstroGel 1 pump twice daily in the past, and would liketo go back to that. 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, [place], [place], unless otherwise specified above. TESTT 23 [...] its performance characteristics determined by [facility] in a manner consistent with CLIA requirements. This test has not been cleared or approved by the U.S. Food and Drug Administration. 12/04/2019 20 8 - 60 ng/dL Final Comment: (NOTE) ADDITIONAL INFORMATION Testing performed by Liquid Chromatography-Tandem Mass Spectrometry (LC-MS/MS). This test was developed and its performance characteristics determined by [facility] in a manner consistent with CLIA requirements. This test has not been cleared or approved by the U.S. Food and Drug Administration. 09/06/2019 23 8 - 60 ng/dL Final Comment: (NOTE) ADDITIONAL INFORMATION Testing performed by Liquid Chromatography-Tandem Mass Spectrometry (LC-MS/MS). This test was developed and its performance characteristics determined by [facility] in a manner consistent with CLIA requirements. This test has not been cleared or approved by the U.S. Food and Drug Administration. 08/16/2019 22 8 - 60 ng/dL Final Comment: (NOTE) ADDITIONAL INFORMATION Testing performed by Liquid Chromatography-Tandem Mass Spectrometry (LC-MS/MS). This test was developed and its performance characteristics determined by [facility] in a manner consistent with CLIA requirements. This test has not been cleared or approved by the U.S. Food and Drug Administration. 06/15/2019 30 8 - 60 ng/dL Final Comment: (NOTE) ADDITIONAL INFORMATION Testing performed by Liquid Chromatography-Tandem Mass Spectrometry (LC-MS/MS). This test was developed and its performance characteristics determined by [facility] in a manner consistent with CLIA requirements. This test has not been cleared or approved by the U.S. Food and Drug Administration. 12/12/2018 See Comment <40 ng/dL Final Comment: The total testosterone result is 20 ng/dL, the reference range of [facility] is 8 to 60 ng/dL. Disregard [facility] reference range. Interpret the result using the reference range provided by the performing laboratory. Results should not be compared to previously reported results using [facility]'s assay due to differences in methodology. Test performed by: [place], [place] Testing performed by Liquid Chromatography Tandem Mass Spectrometry. 07/27/2018 30 <40 ng/dL Final 05/17/2018 19 <40 ng/dL Final 01/03/2018 29 <40 ng/dL Final 09/08/2017 39 <40 ng/dL Final Last Bone Density No resulted procedures found. Last Screening Mammogram [facility] SCREENING Exam End: 07/01/2022 2:50 PM (Final result) Narrative: * * *Final Report* * * DATE OF EXAM: Jul 01 2022 2:50PM KRISTINA [id number] - [facility] CENTER SCREENING / PROCEDURE REASON: Encounter for screening mammogram for breast cancer * * * * Physician Interpretation * * * * RESULT: #[id number] - BELKIS SCREENING BILATERAL DIGITAL SCREENING MAMMOGRAM WITH CAD: 07/01/2022 HISTORY: Encounter For Screening Mammogram For Breast Cancer. RESULT: TECHNIQUE: The study was acquired using full field digital technology and interpreted from soft copy. Current study was also evaluated with a Computer Aided Detection (CAD). Comparison is made to exams dated: 06/16/2019 mammogram and 12/24/2015 mammogram - [facility]. There are scattered fibroglandular elements in both breasts. No significant masses, calcifications, or other findings are seen in either breast. There has been no significant interval change. Impression: IMPRESSION: NEGATIVE There is no mammographic evidence of malignancy. A 1 year screening mammogram is recommended. The exam was reviewed by a staff physician. michael Shrestha M.D., M.D./mahamed:07/01/2022 15:25:18 Svp Of Digital(s): RT Hudson(R)(M), [facility] letter sent: Normal over 40 Mammogram BI-RADS: [...] Health, Family Medicine, and Medical/Surgical Oncology, the [facility] has carefully reviewed the data and [...] their providers when to stop screening mammograms. Lap Winding Machine Operator: Mahamed Transcribe Date/Time: Jul 01 2022 1:57P Dictated by: HAZEL PEREZ MD This examination was interpreted and the [...] Physician Interpretation * * * * RESULT: #[id number] - BELKIS DIG DIAG CAD MARIA A BILATERAL DIGITAL DIAGNOSTIC MAMMOGRAM WITH CAD: 12/24/2015 HISTORY: Mastodynia Bilateral/Palpable lump left axilla /Priors available for comparison. RESULT: TECHNIQUE: The study was acquired using full field digital technology and interpreted from soft copy. Current study was also evaluated with a Computer Aided Detection (CAD). Comparison is made to exam dated: 06/07/2013 mammogram - [facility]. There are scattered fibroglandular elements in both breasts. There are benign lymph nodes in both breasts. No significant masses, calcifications, or other findings are seen in either breast. BENIGN There is no mammographic evidence of malignancy. #[id number] - US BREAST INCL AXILLA LTD ULTRASOUND OF LEFT BREAST: 12/24/2015 RESULT: Comparison is made to exam dated: 06/07/2013 mammogram - [facility]. Ultrasound of the left breast was performed. [...] identified. No interval change. Sanjay camacho/mahamed:12/24/2015 10:46:16 Svp Of Digital: Aline TAYLOR(R)(M), [facility] letter sent: Normal clinical eval OVERALL STUDY BIRADS: 2 Benign Lap Winding Machine Operator: Mahamed Transcribe Date/Time: Dec 24 2015 9:34A [...] Physician Interpretation * * * * RESULT: #[id number] - BELKIS DIG DIAG CAD MARIA A BILATERAL DIGITAL DIAGNOSTIC MAMMOGRAM WITH CAD: 12/24/2015 HISTORY: Mastodynia Bilateral/Palpable lump left axilla /Priors available for comparison. RESULT: TECHNIQUE: The study was acquired using full field digital technology and interpreted from soft copy. Current study was also evaluated with a Computer Aided Detection (CAD). Comparison is made to exam dated: 06/07/2013 mammogram - [facility]. There are scattered fibroglandular elements in both breasts. There are benign lymph nodes in both breasts. No significant masses, calcifications, or other findings are seen in either breast. BENIGN There is no mammographic evidence of malignancy. #[id number] - US BREAST INCL AXILLA LTD ULTRASOUND OF LEFT BREAST: 12/24/2015 RESULT: Comparison is made to exam dated: 06/07/2013 mammogram - [facility]. Ultrasound of the left breast was performed. [...] identified. No interval change. 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 Paul Duron MD Call if any discussed symptoms not better or worse. Note dictated using voice recognition software. documented in this encounterSt. [facility] Hospital10-26-2023 Miscellaneous Notes* Telephone Encounter - Paul Duron MD - 02/18/2023 4:35 PM EDT Gave rx to Dona * Telephone Encounter - Gisell Beard RN - 02/17/2023 1:17 PM EDT LV: 01/27/23 Oliverio: (N95.1) Symptomatic menopausal or female climacteric states (primary encounter diagnosis) (E88.89) GSD2E75 rapid metabolizer (HCC) (R60.9) Edema, unspecified type (R45.86) Mood change (D68.51) Heterozygous factor V Leiden mutation (HCC) Has had multiple intolerances to almost every FDA-approved estrogen product in the past, as noted above. Start EstroGel 1 pump twice daily that she has tolerated very well in the past. We will need to fill out prior authorization and possibly exemption forms-sent to local [facility] pharmacy. She has still been taking the Slynd still only quarter daily. Discussed with the increased estrogendosing would recommend half pill daily, she is agreeable. New prescription for that sent to [facility](pharmacy has been helping out with insurance coverage). Once she is tolerating this, ok with trying testim at 1/10 the dose for her testosterone instead-we will discuss next visit. Added in virtually 03/26, fri at 9:30. Discussed laws have changed and patients can no longer be seen virtually only, does need in person appointment once yearly, she is agreeable, we will set that upat the time of her 03/26 appointment. Please print estrogel Rx as insurance will not cover. Please mail to patient (can give to Dona) Gisell Beard RN February 17, 2023 1:18 PM documented in this encounterSt. Elizabeth Hospital10-11-2023 Miscellaneous Notes* Telephone Encounter - Gisell Beard RN - 02/03/2023 10:52 AM EDT Prior auth Initiated for estrogel through cover my meds Xiong: [id number] Patient last name: FLORA : 1965 Patient is Diagnosed with [id number] rapid metabolizer; patient would metabolize medication to quicklythe after two days it would not work. Can also not take oral medications due to having factor 5 Patient has tried: Combipatch, estradiol cream, climara and vivelle dot Gisell Beard, RN February 03, 2023 10:54 AM documented in this encounterSt. Elizabeth Hospital10-10-2023 Miscellaneous Notes* Telephone Encounter - Tessie Holland - 02/02/2023 10:15 AM EDT Reason for call: other - PA Request Provider name: Dr. Duron Additional comments: Patient calling in regards to prescription: Estradiol (ESTROGEL) 1.25 gram/actuation [facility] told patient that prior auth is required. Patient can be reached at: [phone] Recommendation: routed to nurse triage [place] Tessie Simon documented in this encounterSt. Elizabeth Hospital09-15-2023 Miscellaneous Notes* Telephone Encounter - Margarita Ceja - 01/08/2023 10:47 AM EDT Patient has been identified by name and [...] and advise. Margarita Ceja documented in this encounterSt. Elizabeth Hospital08-18-2023 Miscellaneous Notes* Telephone Encounter - Nella Hernandez RN - 12/11/2022 3:27 PM EDT Shakir Domingo calls to request most recent OV notes be faxed to [phone]. Faxed per request with confirmation fax was received. Nella Hernandez RN documented in this encounterSt. Elizabeth Hospital08-12-2023 History of Present illness Narrative* Freddy Nava MD - 12/05/2022 10:10 AM EDT Patient presents with: Acute Visit HPI:This Team Access Model visit is a virtual encounter. It required patient- provider interaction for the medical decision making as documented below. Patient has elected to have a visit through distance medicine I have communicated my name and active licensure. The patient's identity and physical location wereverified at the time of this visit. Either the patient or their legal high school admissions representative has been informed of the risks and benefits of -- and alternatives to -- treatment through a remote evaluation andconsents to proceed with the evaluation remotely. We [...] 0.1ml to vulva twice daily. (Dispense with a1 mL syringe and jar, not MDD) SYNTHROID 150 mcg tablet Take 1 tablet by mouth once daily. Except 1/2 tab Sun and Sat drospirenone, contraceptive, (SLYND) 4 mg (28) tabet Take 1/2 pill daily. Noncontraceptive purpose.Please apply company discount, process as self-pay if insurance does not cover. estradiol 0.01% estriol 0.01% topical cream (CPD) Apply 0.3 mL topically to arm 2 times daily (Dispense with 1 ml syringe) VIVELLE-DOT 0.0375 mg/24 hr Apply half patch, and change every other day. aware-patient is fast metabolizer, pt needs this sig for tolerability. YULISSA- [facility] resident care manager rn blood sugar diagnostic (BLOOD GLUCOSE TEST) test [...] 2 stroke Colon Cancer Father age 64 ND Diabetes Father Type 2 Hypertension Father Coronary Artery Disease Father Hx of [place] Thyroid Sister hx of parathyroid disease/ hx [...] past medical history, surgical history, family history andsocial history today. REVIEW OF SYSTEMS All other [...] 327.8, ICD10: G47.8 - as above. Freddy Nava MD documented in this encounterSt. Elizabeth Hospital08-01-2023 Miscellaneous Notes* Telephone Encounter - Maribell Garcia Ma - 11/24/2022 10:40 AM EDT Done * Telephone Encounter - Demi Obregon - 11/24/2022 10:24 AM EDT Shakir from [facility] would like to have the most recent office visit notes (08/06/22) sent to them [facility] [phone]. documented in this encounterSt. Elizabeth Hospital04-13-2023 History of Present illness Narrative* Freddy Nava MD - 08/06/2022 9:44 AM EDT Patient presents with: Dizziness HPI: Patient presents [...] (28) tabet Take 1/2 pill daily. Noncontraceptive purpose.Please apply company discount, process as self-pay if insurance does not cover. testosterone in versabase topical cream 1% (CPD) Apply 0.1ml to vulva twice daily. (Dispense with a1 mL syringe and jar, not MDD) estradiol 0.01% estriol 0.01% topical cream (CPD) Apply 0.3 mL topically to arm 2 times daily (Dispense with 1 ml syringe) VIVELLE-DOT 0.0375 mg/24 hr Apply half patch, and change every other day. MD aware-patient is fast metabolizer, pt needs this sig for tolerability. 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 REVIEW OF SYSTEMS All other [...] 244.1, ICD10: E89.0 - TSH BLD Freddy Nava MD documented in this encounterSt. Elizabeth Hospital03-15-2023 History of Present illness Narrative* Paul Duron MD - 07/08/2022 3:12 PM EDT I spent a total of 24+ minutes on the date of the service which included preparing to see the patient, [id number] patient care, completing clinical documentation, obtaining and/or reviewing separately obtained history, counseling and educating the patient/family/caregiver, communicating with other HCPs (not separately reported), and independently interpreting results (not separately reported). My name and active licensure communicated. The patient's identity and physical location were verified at the time of this visit. Either the patient or their legal high school admissions representative has been informed of the risks and benefits of -- and alternatives to -- treatment through a remote evaluation and consents to proceed with the evaluation remotely. * Paul Duron MD - 07/08/2022 1:04 PM EDT Virtual visit-scheduled July 08, 2022 Start review [...] for hormonal concerns. Getting her mammograms via [facility], last 2019, she plans on going soon. Has had hormonal sensitivities throughout her life, difficulty tolerating any hormonal regimens. Premenstrual profound symptoms: heart racing, dizzy, muscle tension within 12 hours prior her cycle starting. Within 2 minof bleeding starting the sxs would resolve, this [...] pregnancies. Did see hematology who said can u se estrogen, but prefer transdermals. She has also been dealing with hyperthyroidism. She is homebound, does get in the pool, and is outside in the garden, but not walking in the yard too much for any consistent amount of time. Got her COVID shot around 02/13 and multiple medical issues latter 2020which she also feels impacted her hormones. Tested [...] the estrogen (mood, hair, moisture of mucous me mbranes), but the levels are not sustained with the typical frequency of the formulations. When shegets too much estrogen gets fluid retention under her skin (which she believes is due to estrogen drop, discussed fluid retention very common in the first 3-4 months of starting estrogen). She doesn't tolerate being without it, but can't tolerate being on it typically within 1-2 weeks, or sometimeseven earlier. She felt well with high testosterone in the past (prior to her surgery). Feels the EstroGel twice daily was well-tolerated (was up to Estrogel 3 pumps a day- was tolerating, though whatshe has noted to be optimally tolerated in the past has varied during our different visits). At the 12/15 follow up she had noted noted 1/2 patch 0.25, changed every other day to the buttock instead of the abdomen has been best tolerated, with crossover 1-2 hours by leaving the older patch on. Thinks she felt best on 37.5 patch in the past. Almo that it was not enough, so on [...] on the patches after 1 year of notbeing able to do so. We added Slynd, [...] biest as is not clear which when shetolerated the best, spoke with our compounding pharmacy. [...] HSDD and depression. Based on my calculation, sheis getting approximately 1.2 mg of estradiol, as [...] 1/2 of the slynd. Reminded to get mammogram,and plans were to start testosterone when she [...] the patch her HR would come down. [employer] resident care manager rn of Vivelle patch: feels it depletes too quickly Combipatch- HR was high 130s sinus tach noted with PCP, so was told her to come off due to possibleallergy. Saw cards and EP- told heart is not the problem, but a symptom of what is going on. Came off after 3 days, also felt drunk and dizzy with it. After she stopped taking it states took 1 mo forthe drunken dizzy sensation to go away. estrogel- [...] it was too much. The pharmacist was managing.3 mg E2/0.5 of E3, she didn't feel comfortable with the way the pharmacist wanted to change the dosing. She felt that it was too E2 heavy. biest 08/15 rxed from us, 1 Click 0.25 g (which we typically use for vaginal local low-dose therapy)of the cream and pickle sorter a 1 mL syringe, start with use [...] soon, will be done as an outpatient - discussed hormone should be held if any complications or immobility. She will discuss with surgical team about preop instructions. Has been on the 0.3 ml bid of the biest, 5-6 wks. Continuing 1/2 pill Slynd. Symptoms more manageable that with the patch. But feeling depressed, a little better, not where she wants to be. She has been noticing hair loss (bilateral temporal region)since at least 06/18. Hasn't started the testosterone yet but feels that she needs it, has dermatology appt today, and her plan is to start the testosterone after this dermatology visit, once they areoptimizing other nonhormonal options. Her PCP did do [...] Htn Impaired Glucose Tolerance Svt (Supraventricular Tachycardia) ([facility]) Ptsd (Post-Traumatic Stress Disorder) Attention Deficit Hyperactivity [...] Intermediate Metabolizer (Hcc) Cyp2c9 Intermediate Metabolizer (Hcc) [id number] Rapid Metabolizer (Hcc) Ugt1a1 Intermediate Metabolizer (Hcc) [...] conflict 03/07/2013 Rectocele 05/13/2009 SVT (supraventricular tachycardia) ([facility]) Has seen cardiology at [facility], many [...] 2 stroke Colon Cancer Father age 64 ND Diabetes Father Type 2 Hypertension Father Coronary Artery Disease Father Hx of ND Thyroid Sister hx of parathyroid disease/ hx [...] History Social History Narrative She lives in [place] [address] 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 Paul Duron MD Reviewed S+S to report for further evaluation. Note dictated using voice recognition software. documented in this encounterSt. Elizabeth Hospital03-15-2023 Instructions* Patient Instructions* Paul Duron MD - 07/08/2022 3:03 PM EDT Images from the original note were not included. Paul Duron MD, [facility] Professor of maintenance and custodian supervisor & Reproductive Biology Staffing Manager & Women's Health [place] Dept of Subspecialty Women's Health IMPORTANT NOTE: we cannot refill prescriptions without a yearly appointment. Appointments OFTEN BOOK OUT 6 months. Please ARRANGE appointments in advance so that prescription refill requests are not INTERUPPTED. My primary office is at [facility] (all paperwork requests should go to [facility]): Scheduling appointments General questions [place], Staffing Manager: (this is not primary office) (please avoid faxing items to [place] office) I see patients in the following locations: Tuesdays, [facility] Wednesdays & , [facility] Mondays and Fridays: Add-on virtual visits only Getting an appointment when you need it: Please always start with contacting office for an appointment first. If needing an earlier appointment from what is offered, I can add you to my schedule if you send me a [employer] message. Since MyChart messages go to our [...] the next few weeks that work for me. It is important to include in your message multiple date/time wi ndows that works for you in the upcoming several weeks, given flexibility in my schedule will vary.Times I can add patients into the schedule include: Mondays, (virtual only) Tuesdays 3 or 3:30 PM, (virtual or [place] office) Wednesdays 3:30 (virtual or [place] [facility], most difficult day for me) before 11:30 or between 2:30-3:30, afternoon preferred (virtual or [place] [facility]) Fridays, (virtual only) For more typical gynecologic concerns (bleeding, vaginal infections, preventive annual etc), I workwith an amazing group of doctors and nurse practitioners who help each other out, not to mention the [facility] visits that are available online or at walk-in clinics throughout [facility]. Any clinician in the department can you see you for these more general needs, as I work as a outreach consultant for more of the specialty hormonal concerns. If you don't get a timely response from me, please don't hesitate to be persistent! Occasionally wemay have nurses and schedulers helping out temporarily in our office, causing some delays in getting the message to me. [employer] messages are allowed a 3 business day turnaround. For more urgent matter s, it is always best to contact the [...] can also be uploaded by patients via [employer]. Thank you for allowing me to participate in your care! Colon cancer screening is offered routinely starting at age 45, earlier if there is a family familyhistory or symptoms. With a family history of [...] regular primary care doctor. documented in this encounterSt. Elizabeth Hospital03-08-2023 Miscellaneous Notes* Letter - Mammography Coordinator - 07/01/2022 3:25 PM EST July 03, 2022 PID: [id number] Maribell Garzon [address] [place] [address] Dear Ms. Garzon, We are pleased to inform you [...] report will be [facility] on file at [facility] as part of your permanent medical record and are available for your continuing care. Thank you for allowing us to help in meeting your health care needs. Sincerely, Dr. Simons Interpreting Radiologist [facility] (Normal over 40) documented in this encounterSt. Elizabeth Hospital03-08-2023 History of Present illness Narrative* Ann Marie Nicole RT(R) - 07/01/2022 1:50 PM EST Radiology Service Progress Note PATIENT NAME: Maribell Garzon DATE OF SERVICE: July 01, 2022 TIME: 1:50 PM PATIENT IDENTITY VERIFICATION COMPLETED USING TWO (2) IDENTIFIERS: Name and Date of confirmedby patient verbally. FALL SCREENING: Has the patient [...] 01, 2022 1:50 PM documented in this encounterSt. Elizabeth Hospital03-07-2023 Miscellaneous Notes* Telephone Encounter - Shakir Andino LPN - 06/30/2022 8:56 AM EST Pt read MC message on 06/29 at 7:39pm. Shakir Andino LPN * Telephone Encounter - Sudha Pink LPN - 06/25/2022 10:51 AM EST Unable to leave message for patient voicemail is full. * Telephone Encounter - Freddy Nava MD - 06/25/2022 9:10 AM EST Images from the original note were not included. Let her know below my chart message she did not pickle sorter. Your labs are overall ok. White count is improving. The red count is stable and likely due to smoking. To be on the safe side. Recheck a cbc in six weeks. documented in this encounterSt. Elizabeth Hospital02-25-2023 Hospital Discharge instructions Additional Instructions Warm salt water gargling. Chloraseptic spray. Motrin Tylenol for pain. Continue your current antibiotic as prescribed. Finish the prescription. Follow-up with your doctor if not improving. If you are not improving he may have to get an ear nose and throat doctor involved to look down your throat with a scope. Tonight there is nothing remarkable with your exam.[facility] Work Phone: [phone]) 221-207202-24-[address] Herrera [facility] June 19, 2022 11:58pm Note Date/Time June 19, 2022 11:58pm [facility] Medical Records Department [address] [place] [address] Emergency Department Summary 06/19/22 MR#: [id number] Acct: [id number] Name: MARIBELL GARZON Rep #:[id number] : 1965 56 From: Gerhard Herrera MD PCP: Dr. Freddy Nava MD Status:PRE E R Location: ED HPI HPI - URI History of Present Illness Chief Complaint: Sore Throat Onset/Context/Timing Onset: Days Context: Gradual Onset Current Severity: Mild Maximum Severity: Mild Narrative Narrative: 56-year-old female history of anxiety, depression and irritable bowel. Prior thyroid ablation. States that she has had a sore throat for around 6 days. Sawher primary care physician for a virtual visit than in person. [facility]. They did an negative mono test. She has been on Augmentin 875 twice daily for 4 to 5 days. States she has had no really significant improvement. Denies any fever. No trouble swallowing or breathing. Prior similar symptoms: Yes Recent Illness/Hospitalization: No ROS ROS ED ROS Narrative Sore throat. Review of Systems ROS Unobtainable: Denies due to encephalopathy Constitutional Constitutional ED: Denies chills or fever(s) Eyes Eyes: Denies blurry vision ENT ENT ED: Reports sore throat; Denies ear pain or rhinorrhea Cardiovascular Cardiovascular: Denies chest pain or palpitations Respiratory/Chest Respiratory/Chest: Denies cough or dyspnea Gastrointestinal Gastrointestinal: Denies abdominal pain, diarrhea, melena, nausea or vomiting Genitourinary Genitourinary ED: Denies dysuria Musculoskeletal Musculoskeletal: Denies arthralgias Integumentary Denies abscess Neurologic Neurologic: Denies headache(s) Psychiatric Psychiatric: Denies anxiety Endocrine Endocrinology: Denies cold intolerance Hematologic/Lymphatic Hematologic/Lymphatic: Denies easy bleeding Allergic/Immunologic Allergic/Immunologic ED: Denies mouth swelling or tongue swelling PFSH PFSH Medical History Anxiety Dominguez's cyst of knee Cholecystectomy planned Depression Essential hypertension GERD (gastroesophageal reflux disease) Hypertension Hyperthyroidism IBS (irritable bowel syndrome) Lumbar degenerative disc disease Meniere disease Paroxysmal SVT (supraventricular tachycardia) Pre-diabetes Premature atrial contractions Premature ventricular contraction Sinus tachycardia Swine flu Tobacco abuse Vitamin D deficiency Home Medications levothyroxine 150 mcg tablet 150 mcg PO DAILY 06/24/21 [History Last Taken Unknown] estradiol 0.025 mg/24 hr semiweekly transdermal patch 1.5 patch transdermal .QOD12/11/21 [History Last Taken Unknown] ibuprofen 200 mg tablet 400 mg PO Q6H PRN 12/30/21 [History Last Taken Unknown] albuterol sulfate 90 mcg/actuation aerosol inhaler (Ventolin HFA) 2 puff inhalation Q4H PRN PRN Wheezing #1 device 02/15/22 [Rx Last Taken Unknown] promethazine 6.25 mg-codeine 10 mg/5 mL syrup 5 ml PO 4X/DAY PRN PRN cough 7 days #140 mL 02/15/22 [Rx Last Taken Unknown] Allergy/AdvReac Type Severity Reaction Status Date / Time codeine Allergy Rash Verified 12/11/21 10:46 hydrocodone bitartrate Allergy Rash Verified 12/11/21 10:46 [From Vicodin] methimazole [From Tapazole] Allergy Shortness Verified 12/11/21 10:46 of breath famotidine [From Pepcid] AdvReac Unknown Unknown Verified 12/11/21 10:46 estradiol [From CombiPatch] AdvReac myalgias, Verified 12/11/21 10:46 lip/mouth burn, SOB, nausea, dizziness methylprednisolone sodium AdvReac Other Verified 12/11/21 10:46 succinate [From Solu-Medrol] norethindrone AdvReac myalgias, Verified 12/11/21 10:46 [From CombiPatch] lip/mouth burn, SOB, nausea, dizziness oxycodone HCl [From Percocet] AdvReac Nausea/Vom/ Verified 12/11/21 10:46 Diarrhea cyp 2019 AdvReac Intermediate unknown Uncoded 12/11/21 10:46 CYP2B6 AdvReac Unknown unknown Uncoded 12/11/21 10:46 Family History Father CAD (coronary artery disease) Hypertension Myocardial infarction, Onset Age: 66 Hx of CABG Surgical History History of cholecystectomy History of left oophorectomy History of tubal ligation Social History Smoking Status: Current every day smoker tobacco type: cigarettes alcohol intake: never substance use type: does not use caffeine: No EXAM Physical Exam Narrative Exam Narrative: Well-appearing 56-year-old female. Vital signs are stable afebrile. Pulse ox 99% on room air no hypoxia. H EENT exam is completely unremarkable. TMs are normal bilaterally. At worst there is minimal erythema in the posterior pharynx. Her tonsils are not large at all in fact I do not even see them. There is no exudate. No peritonsillar abscess. No trouble swallowing or breathing. No swelling or foreign bodies. Neck there is no lymphadenopathy. No significant tenderness. No mass. Trachea midline. Lungs are clear. Heart regular rhythm no murmur. Abdomen soft nontender. Otherwise exam unremarkable. Const Vital Signs: 06/19/22 23:34 06/19/22 23:38 Temperature 97.5 F L Temperature Source Temporal Pulse Rate 98 Respiratory Rate 17 Blood Pressure 146/95 H Blood Pressure Mean 112 Pulse Ox 99 98 Oxygen Delivery Method Room Air Room Air Positive well nourished and well developed; Negative for cachectic or contractures General Appearance ED: well developed and NAD; Negative for cachectic, contractures, cyanotic, diaphoretic or pallor Nutritional Appearance: Negative for cachectic HEENT Reports moist mucous membranes; Denies dry mucous membranes normocephalic and atraumatic; Negative for scalp tenderness Face and Sinus: Negative for sinus tenderness Mouth ED: No dry mucous membranes Mouth: No dry mucous membranes Teeth and Gingiva: Negative for caries Throat: posterior oropharynx abnormal Positive for erythema; Negative for posterior oropharynx normal or tonsils abnormal Eyes PERRL and EOMs intact bilaterally General Eye ED: Negative for pale conjunctiva, scleral icterus or other Neck no lymphadenopathy, supple, no meningeal signs and no JVD General: Negative for anterior neck swelling or lymphadenopathy Resp normal respiratory effort and clear to auscultation bilaterally Effort and Inspection: Negative for retractions Auscultation: Negative for rales, rhonchi or wheezes Cardio S1 normal heart sound, S2 normal heart sound and no murmurs Rate: regular rate Rhythm: regular rhythm GI non-tender, non-distended and no masses Inspection: Negative for abdominal distention Auscultation: normoactive bowel sounds Palpation: soft; Negative for tender or guarding Back/Spine no CVA tenderness and normal ROM General Back: Negative for CVA tenderness Cervical Spine: Negative for cervical spine tenderness Thoracic Spine / Upper Back: Negative for thoracic spinal tenderness Lumbar Spine / Lower Back: Negative for lumbar spinal tenderness Sacrum: Negative for tenderness Extremity normal to inspection and full ROM General Extremety ED: Negative for cyanosis or tenderness General Extremity: Negative for cyanosis Neuro oriented x3, CN's II-XII intact bilaterally and no sensory deficits noted Sensorium / Orientation: alert, oriented to person, oriented to place and oriented to time; Negative for orientation impaired, lethargic or stuporous Motor Exam: strength 5/5 throughout Psych mental status grossly normal Appearance: Negative for other Attitude: No agitated Mood & Affect: Negative for depressed, anxious or tearful Skin General Skin Exam: Negative for jaundice or pallor Lesions: no lesions Rashes: no rashes Trauma: Negative for abrasion or laceration MDM MDM MDM Narrative Medical decision making narrative: 56-year-old with sore throat. Currently on amoxicillin twice daily. Exam is benign. There is no signs of peritonsillar abscess. There is no tonsillar swelling. There is no exudate. No trouble swallowing or breathing. No lymphadenopathy. No testing to do an emergency department. She had recent labs done with the [facility] and a negative Monospot test and clinically this does not appear to be mononucleosis she has no lymphadenopathy. She will be discharged home. Symptomatic treatment. Continue antibiotics. Follow-up with primary care physician if not improving she may need referral to an ENT for further evaluation possible scope. Discharge Plan Triage Chief Complaint: Sore Throat ED Provider: Gerhard Herrera Dx/Rx/DC Orders Clinical Impression: Pharyngitis Instructions: When You Have a Sore Throat Prescriptions: No Action levothyroxine 150 mcg tablet 150 mcg PO DAILY estradiol 0.025 mg/24 hr patch semiweekly 1.5 patch transdermal .QOD ibuprofen 200 mg tablet 400 mg PO Q6H PRN albuterol sulfate [Ventolin HFA] 90 mcg/actuation HFA aerosol inhaler 2 puff inhalation Q4H PRN PRN (Reason: Wheezing) Qty: 1 2RF promethazine-codeine 6.25-10 mg/5 mL syrup 5 ml PO 4X/DAY PRN PRN (Reason: cough) 7 Days Qty: 140 0RF Primary Care Provider: Freddy Nava Referrals: Freddy Nava MD [Primary Care Provider] - 3-5 Days if not improving Activity Restrictions/Additional Instructions: Warm salt water gargling. Chloraseptic spray. Motrin Tylenol for pain. Continue your current antibiotic as prescribed. Finish the prescription. Follow-up with your doctor if not improving. If you are not improving he may have to get an ear nose and throat doctor involved to look down your throat witha scope. Tonight there is nothing remarkable with your exam. Disposition Disposition: Home, Self Care What to do if you have Problems For any increased pain, shortness of breath, bleeding, nausea or vomiting, chestpain, or any unexpected problems, contact your Primary Care Provider. Call [facility] ([phone]) or report to the closest Emergency Room. Call 911 if necessary. 06/19/22 3581 <Electronically signed by Gerhard Herrera MD> Cosigner Signature (if applicable): CC: Dr. Freddy Naav MD ~ Signed [facility] Work Phone: 1(320) 658-868002-22-2023 History of Present illness Narrative* Freddy Nava MD - 06/17/2022 2:41 PM EST Patient presents with: Sore Throat HPI: Patient [...] (28) tabet Take 1/2 pill daily. Noncontraceptive purpose.Please apply company discount, process as self-pay if insurance does not cover. testosterone in versabase topical cream 1% (CPD) Apply 0.1ml to vulva twice daily. (Dispense with a1 mL syringe and jar, not MDD) estradiol 0.01% estriol 0.01% topical cream (CPD) Apply 0.3 mL topically to arm 2 times daily (Dispense with 1 ml syringe) VIVELLE-DOT 0.0375 mg/24 hr Apply half patch, and change every other day. MD aware-patient is fast metabolizer, pt needs this sig for tolerability. YULISSA- [facility] resident care manager rn blood sugar diagnostic (BLOOD GLUCOSE TEST) test [...] 2 stroke Colon Cancer Father age 64 ND Diabetes Father Type 2 Hypertension Father Coronary Artery Disease Father Hx of ND Thyroid Sister hx of parathyroid disease/ hx [...] past medical history, surgical history, family history andsocial history today. REVIEW OF SYSTEMS All other [...] ICD9: 704.00, ICD10: L65.9 - DIHYDROTESTOSTERONE Freddy Nava MD documented in this encounterSt. [facility] History of Present illness Narrative* Freddy Nava MD - 06/15/2022 7:20 PM EST Patient presents with: Acute Visit HPI:This Team [...] (28) tabet Take 1/2 pill daily. Noncontraceptive purpose.Please apply company discount, process as self-pay if insurance does not cover. testosterone in versabase topical cream 1% (CPD) Apply 0.1ml to vulva twice daily. (Dispense with a1 mL syringe and jar, not MDD) estradiol 0.01% estriol 0.01% topical cream (CPD) Apply 0.3 mL topically to arm 2 times daily (Dispense with 1 ml syringe) VIVELLE-DOT 0.0375 mg/24 hr Apply half patch, and change every other day. MD aware-patient is fast metabolizer, pt needs this sig for tolerability. 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 Take 1 tab by mouth once daily. blood sugar diagnostic (BLOOD GLUCOSE TEST) test strip Test blood sugar(s) 2 times daily. Insulin: No Lancets lancets Test blood sugar(s) 2 times daily. Insulin: No CPAP Mask refitting for new mask (FFM option please), heated tubing (YULISSA). [employer] supplies. G47.33 ANDRSESA albuterol HFA (PROVENTIL HFA) 90 mcg/actuation inhaler [...] 2 stroke Colon Cancer Father age 64 ND Diabetes Father Type 2 Hypertension Father Coronary Artery Disease Father Hx of ND Thyroid Sister hx of parathyroid disease/ hx [...] past medical history, surgical history, family history andsocial history today. REVIEW OF SYSTEMS All other [...] weeks - AMOXICILLIN 875 MG TABLET Freddy Nava MD documented in this encounterSt. [facility]02-[facility] History of Present illness Narrative* Freddy Nava MD - 05/28/2022 9:52 AM EST Patient presents with: Follow Up HPI:This Team [...] Abs Lymph 1.00 - 4.00 k/uL 3.51 [place]% % 7.3 Abs [place] <0.87 k/uL 0.95 (H) Eosin% % 1.4 [...] (28) tabet Take 1/2 pill daily. Noncontraceptive purpose.Please apply company discount, process as self-pay if insurance does not cover. testosterone in versabase topical cream 1% (CPD) Apply 0.1ml to vulva twice daily. (Dispense with a1 mL syringe and jar, not MDD) estradiol 0.01% estriol 0.01% topical cream (CPD) Apply 0.3 mL topically to arm 2 times daily (Dispense with 1 ml syringe) VIVELLE-DOT 0.0375 mg/24 hr Apply half patch, and change every other day. MD aware-patient is fast metabolizer, pt needs this sig for tolerability. 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 REVIEW OF SYSTEMS All other [...] patient. Advised them to call if any sideeffects or questions. - DULOXETINE 20 MG CAPSULE,DELAYED RELEASE 2. Fatigue, unspecified type - ICD9: 780.79, ICD10: R53.83 Freddy Nava RTO in one month and prn. documented in this encounterSt. [facility]01-26-[facility]23 History of Present illness Narrative* Freddy Nava MD - 05/21/2022 2:29 PM EST Patient presents with: Acute Visit HPI:This Team [...] (28) tabet Take 1/2 pill daily. Noncontraceptive purpose.Please apply company discount, process as self-pay if insurance does not cover. testosterone in versabase topical cream 1% (CPD) Apply 0.1ml to vulva twice daily. (Dispense with a1 mL syringe and jar, not MDD) estradiol 0.01% estriol 0.01% topical cream (CPD) Apply 0.3 mL topically to arm 2 times daily (Dispense with 1 ml syringe) VIVELLE-DOT 0.0375 mg/24 hr Apply half patch, and change every other day. MD aware-patient is fast metabolizer, pt needs this sig for tolerability. 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 REVIEW OF SYSTEMS All other [...] 790.29, ICD10: R73.9 - HGB A1C Freddy Nava MD documented in this encounterSt. [facility]01-[facility] History of Present illness Narrative* Paul Duron MD - 05/01/2022 10:23 AM EST I spent a total of 13 minutes on the date of the service which included preparing to see the patient, completing clinical documentation, obtaining and/or reviewing separately obtained history, and counseling and educating the patient/family/caregiver. Real-time telemedicine visit using audiovisual t echnology with patient's verbal consent. Name and verified. * Paul Duron MD - 05/01/2022 10:10 AM EST Virtual visit-scheduled May 01, 2022 Start review [...] of the slynd. Getting her mammograms via [facility], last 2019, she plans on going soon. 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 She plans to initiate the testosterone within a few weeks once she feels fully adjusted to the estrogen and progestin again.She has set up several follow-up appointments with me, and has one scheduled in mid May. Reinforced plans from last visit. She will follow-up on getting her mammogram in the interim. No orders found for this visit on 05/01/22. Paul Duron MD Reviewed S+S to report for further evaluation. Note dictated using voice recognition software. documented in this encounterSt. [facility]01-06-2023 Instructions* Patient Instructions* Paul Duron MD - 05/01/2022 10:23 AM EST Images from the original note were not included. Paul Duron MD, [facility] Professor of maintenance and custodian supervisor & Reproductive Biology Staffing Manager & Women's [facility] [place] Dept of Subspecialty Women's Health IMPORTANT NOTE: we cannot refill prescriptions without a yearly appointment. Appointments OFTEN BOOK OUT 6 months. Please ARRANGE appointments in advance so that prescription refill requests are not INTERUPPTED. Primary office numbers (at [facility] [place], for general questions, all paperwork requests, etc): General questions ; scheduling appointments (please avoid faxing items to [place] office) Alternative contact numbers: [place], Staffing Manager: The general scheduling line for all Medical Coding Technician departments (after hours times available): [phone] I see patients in the following locations: Tuesdays, [facility] Wednesdays & , [facility] Mondays and Fridays: Add-on virtual visits only Getting an appointment when you need it: Calling the office offers the most options for appointments with me which can be virtual (video visit) or in person on a Wednesday, Wednesday, or . If needing an earlier appointment from what is offered, I can add you to my schedule if you send me a [employer]ogg message. Since [employer]ogg messages go to our nursing teams first, it's helpful if you write something like Per our conversation, you mentioned you can add me in for a virtual visit, here are some dates/times in the next few weeks that work for me. It is important to include in your message multiple date/time windows that works for youin the upcoming several weeks, given flexibility in my schedule will vary. Using this phrasing willhelp prevent delays in getting the message to me. Times I can add patients into the schedule include: Mondays, (virtual only) Tuesdays 3 or 3:30 PM, (virtual or [place] office) Wednesdays 3:30 (virtual or [facility] [place] [facility], most difficult day for me) before 11:30 or between 2:30-3:30, afternoon preferred (virtual or [facility] [place] [facility]) Fridays, (virtual only) For more routine gynecologic concerns (bleeding, vaginal infections, etc), we work with an amazing group of doctors and nurse practitioners who help each other out, not to mention the [facility] visits that are available online or at walk-in clinics throughout [facility]. Any clinicianin the department can you see you for these more general needs, as I work as a outreach consultant for more of the specialty hormonal concerns. If you don't get a timely response from me, please don't hesitate to be persistent! Occasionally wemay have nurses and schedulers helping out temporarily in our office, causing some delays in getting the message to me. [employer] messages are allowed a 3 business day turnaround. For more urgent matter s, it is always best to contact the [...] 45, earlier if there is a family familyhistory or symptoms. With a family history of [...] regular primary care doctor. documented in this encounterCleveland [id number] History of Present illness Narrative* Paul Duron MD - 03/27/2022 2:12 PM EST I spent a total of 51+ minutes on the date of the service which included preparing to see the patient, [id number] patient care, completing clinical documentation, obtaining and/or reviewing separately obtained history, performing a medically appropriate examination, counseling and educating the pa tient/family/caregiver, ordering medications, tests, or procedures, communicating with other HCPs (not separately reported), and care coordination (not separately reported). Real-time telemedicine visit using audiovisual technology with patient's verbal consent. Name and verified. * Paul Duron MD - 03/27/2022 1:22 PM EST Virtual visit-scheduled March 27, 2022 Start review [...] resolve, this would occur consistently. Hx of ovariancysts, was scheduled for surgery to have removed, she insisted on repeat ultrasound because felt that the cyst was resolved, she was right. Didn't need the surgery. However she did have left oophorectomy for benign reasons. LMP in 2009, age 42-43. Lab confirmed menopause-soon after gynecologic surgery. Since then symptoms are debilitating, disabled and cannot leave her house, difficult for her todrive. When in menopause many of the symptoms [...] the estrogen (mood, hair, moisture of mucous me mbranes), but the levels are not sustained with the typical frequency of the formulations. When shegets too much estrogen gets fluid retention under her skin (which she believes is due to estrogen drop, discussed fluid retention very common in the first 3-4 months of starting estrogen). She doesn't tolerate being without it, but can't tolerate being on it typically within 1-2 weeks, or sometimeseven earlier. She felt well with high testosterone in the past (prior to her surgery). Feels the EstroGel twice daily was well-tolerated (was up to Estrogel 3 pumps a day- was tolerating, though whatshe has noted to be optimally tolerated in the past has varied during our different visits). At the 12/15 follow up she had noted noted 1/2 patch 0.25, changed every other day to the buttock instead of the abdomen has been best tolerated, with crossover 1-2 hours by leaving the older patch on. Thinks she felt best on 37.5 patch in the past. Almo that it was not enough, so on [...] on the patches after 1 year of notbeing able to do so. We added Slynd, [...] biest as is not clear which when shetolerated the best, spoke with our compounding pharmacy. [...] Feels like if she continues in this pathmay be able to start working again. Yesterday put up uriel lights outside but felt low estrogenthe next day. She describes this feeling similar [...] patch her HR would come down. 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 Saw cards and EP- told heart is not the problem, but a symptom of what is going on. Came off after 3 days, also felt drunk and dizzy with it. After she stopped taking it states took 1 mo forthe drunken dizzy sensation to go away. estrogel- [...] it was too much. The pharmacist was managing.3 mg E2/0.5 of E3, she didn't feel comfortable with the way the pharmacist wanted to change the dosing. She felt that it was too E2 heavy. biest 08/15 rxed from us, 1 Click 0.25 g (which we typically use for vaginal local low-dose therapy)of the cream and pickle sorter a 1 mL syringe, start with use [...] Htn Impaired Glucose Tolerance Svt (Supraventricular Tachycardia) ([facility]) Ptsd (Post-Traumatic Stress Disorder) Attention Deficit Hyperactivity Disorder (Adhd), Combined Type Recurrent Major Depressive Disorder, in Partial Remission ([facility]) menopause age 43 Tobacco Use Gerd Without [...] Intermediate Metabolizer (Hcc) Cyp2c9 Intermediate Metabolizer (Hcc) [id number] Rapid Metabolizer (Hcc) Ugt1a1 Intermediate Metabolizer (Hcc) [...] 2 stroke Colon Cancer Father age 64 ND Diabetes Father Type 2 Hypertension Father Coronary Artery Disease Father Hx of ND Thyroid Sister hx of parathyroid disease/ hx [...] History Social History Narrative She lives in [place] [address] 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 Paul Duron MD Reviewed S+S to report for further evaluation. Note dictated using voice recognition software. documented in this encounterSt. [facility] Hospital12-[facility]-2022 Instructions* Patient Instructions* Paul Duron MD - 03/27/2022 1:35 PM EST Images from the original note were not included. Paul Duron MD, [facility] Professor of maintenance and custodian supervisor & Reproductive Biology Staffing Manager & Women's Health [place] Dept of Subspecialty Women's Health IMPORTANT NOTE: we cannot refill prescriptions without a yearly appointment. Appointments OFTEN BOOK OUT 6 months. Please ARRANGE appointments in advance so that prescription refill requests are not INTERUPPTED. Primary office numbers (at [facility], for general questions, all paperwork requests, etc): General questions ; scheduling appointments (please avoid faxing items to [place] office) Alternative contact numbers: [place], Staffing Manager: The general scheduling line for all Medical Coding Technician departments (after hours times available): [phone] I see patients in the following locations: Tuesdays, [facility] Wednesdays & , [facility] Mondays and Fridays: Add-on virtual visits only Getting an appointment when you need it: Calling the office offers the most options for appointments with me which can be virtual (video visit) or in person on a Wednesday, Wednesday, or . If needing an earlier appointment from what is offered, I can add you to my schedule if you send me a [employer] message. Since [employer] messages go to our nursing teams first, it's helpful if you write something like Per our conversation, you mentioned you can add me in for a virtual visit, here are some dates/times in the next few weeks that work for me. It is important to include in your message multiple date/time windows that works for youin the upcoming several weeks, given flexibility in my schedule will vary. Using this phrasing willhelp prevent delays in getting the message to me. Times I can add patients into the schedule include: Mondays 9-2, (virtual only) Tuesdays 3 or 3:30 PM, (virtual or [place] office) Wednesdays 3:30 (virtual or [facility] A10, most difficult day for me) before 11:30 or between 2:30-3:30, afternoon preferred (virtual or [place] [facility]) Fridays-, (virtual only) For more routine gynecologic concerns (bleeding, vaginal infections, etc), we work with an amazing group of doctors and nurse practitioners who help each other out, not to mention the [facility] visits that are available online or at walk-in clinics throughout [facility]. Any clinicianin the department can you see you for these more general needs, as I work as a outreach consultant for more of the specialty hormonal concerns. If you don't get a timely response from me, please don't hesitate to be persistent! Occasionally wemay have nurses and schedulers helping out temporarily in our office, causing some delays in getting the message to me. [employer] messages are allowed a 3 business day turnaround. For more urgent matter s, it is always best to contact the [...] 45, earlier if there is a family familyhistory or symptoms. With a family history of [...] regular primary care doctor. documented in [facility] encounter[facility] Miscellaneous Notes* Telephone Encounter - Sudha Pink LPN - 03/16/2022 11:24 AM EST Spoke with patient and asking to have Vyvanse discontinued from her medication list. Unable to takedue to side effects. Taken care of as patient requested. States that her son had attempted to fill from her MyChart. She has since taken care of this so it can't happen again. documented in this encounterSt. [facility] History of Past illness Narrative* Problem Noted Date Diagnosed Date Resolved Date Not currently working due to disabled status due to hormone deficiency 02/27/2022 05/20/2023 Other chest pain 02/05/2020 05/20/2023 Screening for malignant neop lasm of the cervix 06/20/2018 05/20/2023 Visit for pelvic exam 06/20/20182023 Encounter for screening mamm ogram for malignant neoplasm of breast 06/20/2018 05/20/2023 Systemic lupus erythematosus 02/14/2018 05/20/2023 Postmenopausal HRT (hormone replacement therapy) 12/13/2015 11/09/2016 [...] as of this encounter (statuses as of 05/28/2023) [facility] History of Past illness Narrative* Problem Noted Date Diagnosed Date Resolved Date Not currently working due to disabled status due to hormone deficiency 02/27/2022 05/20/2023 Other chest pain 02/05/2020 05/20/2023 Screening for malignant neop lasm of the cervix 06/20/2018 05/20/2023 Visit for pelvic exam 06/20/20182023 Encounter for screening mamm ogram for malignant neoplasm of breast 06/20/2018 05/20/2023 Systemic lupus erythematosus 02/14/2018 05/20/2023 Postmenopausal HRT (hormone replacement therapy) 12/13/2015 11/09/2016 [...] as of this encounter (statuses as of 05/28/2023) [facility] of Past illness Narrative* Problem Noted Date Diagnosed Date Resolved Date Not currently working due to disabled status due to hormone deficiency 02/27/2022 05/20/2023 Other chest pain 02/05/2020 05/20/2023 Screening for malignant neop lasm of the cervix 06/20/2018 05/20/2023 Visit for pelvic exam 06/20/20182023 Encounter for screening mamm ogram for malignant neoplasm of breast 06/20/2018 05/20/2023 Systemic lupus erythematosus 02/14/2018 05/20/2023 Postmenopausal HRT (hormone replacement therapy) 12/13/2015 11/09/2016 [...] as of this encounter (statuses as of 06/01/2023) [facility] of Past illness Narrative* Problem Noted Date Diagnosed Date Resolved Date Not currently working due to disabled status due to hormone deficiency 02/27/2022 05/20/2023 Other chest pain 02/05/2020 05/20/2023 Screening for malignant neop lasm of the cervix 06/20/2018 05/20/2023 Visit for pelvic exam 06/20/20182023 Encounter for screening mamm ogram for malignant neoplasm of breast 06/20/2018 05/20/2023 Systemic lupus erythematosus 02/14/2018 05/20/2023 Postmenopausal HRT (hormone replacement therapy) 12/13/2015 11/09/2016 [...] as of this encounter (statuses as of 06/18/2023) [facility] of Past illness Narrative* Problem Noted Date Diagnosed Date Resolved Date Not currently working due to disabled status due to hormone deficiency 02/27/2022 05/20/2023 Other chest pain 02/05/2020 05/20/2023 Screening for malignant neop lasm of the cervix 06/20/2018 05/20/2023 Visit for pelvic exam 06/20/20182023 Encounter for screening mamm ogram for malignant neoplasm of breast 06/20/2018 05/20/2023 Systemic lupus erythematosus 02/14/2018 05/20/2023 Postmenopausal HRT (hormone replacement therapy) 12/13/2015 11/09/2016 [...] as of this encounter (statuses as of 06/23/2023) [facility] of Past illness Narrative* Problem Noted Date Diagnosed Date Resolved Date Not currently working due to disabled status due to hormone deficiency 02/27/2022 05/20/2023 Other chest pain 02/05/2020 05/20/2023 Screening for malignant neop lasm of the cervix 06/20/2018 05/20/2023 Visit for pelvic exam 06/20/20182023 Encounter for screening mamm ogram for malignant neoplasm of breast 06/20/2018 05/20/2023 Systemic lupus erythematosus 02/14/2018 05/20/2023 Postmenopausal HRT (hormone replacement therapy) 12/13/2015 11/09/2016 [...] as of this encounter (statuses as of 06/25/2023) [facility] of [facility] illness Narrative* Problem Noted Date Diagnosed Date Resolved Date Not currently working due to disabled status due to hormone deficiency 02/27/2022 05/20/2023 Other chest pain 02/05/2020 05/20/2023 Screening for malignant neop lasm of the cervix 06/20/2018 05/20/2023 Visit for pelvic exam 06/20/20182023 Encounter for screening mamm ogram for malignant neoplasm of breast 06/20/2018 05/20/2023 Systemic lupus erythematosus 02/14/2018 05/20/2023 Postmenopausal HRT (hormone replacement therapy) 12/13/2015 11/09/2016 [...] as of this encounter (statuses as of 07/02/2023) [facility] of [facility] illness Narrative* Problem Noted Date Diagnosed Date Resolved Date Not currently working due to disabled status due to hormone deficiency 02/27/2022 05/20/2023 Other chest pain 02/05/2020 05/20/2023 Screening for malignant neop lasm of the cervix 06/20/2018 05/20/2023 Visit for pelvic exam 06/20/20182023 Encounter for screening mamm ogram for malignant neoplasm of breast 06/20/2018 05/20/2023 Systemic lupus erythematosus 02/14/2018 05/20/2023 Postmenopausal HRT (hormone replacement therapy) 12/13/2015 11/09/2016 [...] as of this encounter (statuses as of 07/07/2023) [facility] Narrative* Problem Noted Date Diagnosed Date Resolved Date Not currently working due to disabled status due to hormone deficiency 02/27/2022 05/20/2023 Other chest pain 02/05/2020 05/20/2023 Screening for malignant neop lasm of the cervix 06/20/2018 05/20/2023 Visit for pelvic exam 06/20/20182023 Encounter for screening mamm ogram for malignant neoplasm of breast 06/20/2018 05/20/2023 Systemic lupus erythematosus 02/14/2018 05/20/2023 Postmenopausal HRT (hormone replacement therapy) 12/13/2015 11/09/2016 [...] as of this encounter (statuses as of 07/08/2023) [facility] Narrative* Problem Noted Date Diagnosed Date Resolved Date Not currently working due to disabled status due to hormone deficiency 02/27/2022 05/20/2023 Other chest pain 02/05/2020 05/20/2023 Screening for malignant neop lasm of the cervix 06/20/2018 05/20/2023 Visit for pelvic exam 06/20/20182023 Encounter for screening mamm ogram for malignant neoplasm of breast 06/20/2018 05/20/2023 Systemic lupus erythematosus 02/14/2018 05/20/2023 Postmenopausal HRT (hormone replacement therapy) 12/13/2015 11/09/2016 [...] as of this encounter (statuses as of 07/13/2023) [facility] of [facility] illness Narrative* Problem Noted Date Diagnosed Date Resolved Date Not currently working due to disabled status due to hormone deficiency 02/27/2022 05/20/2023 Other chest pain 02/05/2020 05/20/2023 Screening for malignant neop lasm of the cervix 06/20/2018 05/20/2023 Visit for pelvic exam 06/20/20182023 Encounter for screening mamm ogram for malignant neoplasm of breast 06/20/2018 05/20/2023 Systemic lupus erythematosus 02/14/2018 05/20/2023 Postmenopausal HRT (hormone replacement therapy) 12/13/2015 11/09/2016 [...] as of this encounter (statuses as of 07/13/2023) [facility] of [facility] illness Narrative* Problem Noted Date Diagnosed Date Resolved Date Not currently working due to disabled status due to hormone deficiency 02/27/2022 05/20/2023 Other chest pain 02/05/2020 05/20/2023 Screening for malignant neop lasm of the cervix 06/20/2018 05/20/2023 Visit for pelvic exam 06/20/20182023 Encounter for screening mamm ogram for malignant neoplasm of breast 06/20/2018 05/20/2023 Systemic lupus erythematosus 02/14/2018 05/20/2023 Postmenopausal HRT (hormone replacement therapy) 12/13/2015 11/09/2016 [...] as of this encounter (statuses as of 07/29/2023) [facility] History of Present illness Narrative* Paul Duron MD - 02/27/2022 1:52 PM EDT I spent a total of 49 minutes on the date of the service which included preparing to see the patient, [id number] patient care, completing clinical documentation, counseling and educating the patient/family/caregiver, ordering medications, tests, or procedures, communicating with other HCPs (not separately reported), and care coordination (not separately reported). Real-time telemedicine visit using audiovisual technology with patient's verbal consent. Name and verified. * Paul Duron MD - 02/27/2022 1:00 PM EDT Virtual visit-scheduled February 27, 2022 Start review [...] resolve, this would occur consistently. Hx of ovariancysts, was scheduled for surgery to have removed, she insisted on repeat ultrasound because felt that the cyst was resolved, she was right. Didn't need the surgery. However she did have left oophorectomy for benign reasons. LMP in 2009, age 42-43. Lab confirmed menopause-soon after gynecologic surgery. Since then symptoms are debilitating, disabled and cannot leave her house, difficult for her todrive. When in menopause many of the symptoms [...] the estrogen (mood, hair, moisture of mucous me mbranes), but the levels are not sustained with the typical frequency of the formulations. When shegets too much estrogen gets fluid retention. She [...] best on 37.5 patch in the past. Almo that it was not enough, so on [...] quarter pill daily and kept estrogen dosing thesame for now. Need to find a progestin that she tolerates to be able to continue the estrogen. Discussed trial of testosterone in the future, but emphasized need to make 1 change at a time. Discussedweight trends are overall stable from her past baseline. Difficult to assess whether there is Lipedema versus edema, etc.virtually, was hopeful that the antidiuretic effect of the progestin will help INTERIM UPDATE 02/27/2022: She feels the HT patches aren't for her. Feels a ryena of HT and then nothing within 24 [...] tolerating. She is unsure if estrogen is nextbest step. She is leaning towards the testosterone [...] patch her HR would come down. 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 Saw cards and EP- told heart is not the problem, but a symptom of what is going on. Came off after 3 days, also felt drunk and dizzy with it. After she stopped taking it states took 1 mo forthe drunken dizzy sensation to go away. estrogel- [...] it was too much. The pharmacist was managing.3 mg E2/0.5 of E3, she didn't feel comfortable with the way the pharmacist wanted to change the dosing. She felt that it was too E2 heavy. biest 08/15 rxed from us, 1 Click 0.25 g (which we typically use for vaginal local low-dose therapy)of the cream and pickle sorter a 1 mL syringe, start with use [...] Intermediate Metabolizer (Hcc) Cyp2c9 Intermediate Metabolizer (Hcc) [id number] Rapid Metabolizer (Hcc) Ugt1a1 Intermediate Metabolizer (Hcc) [...] conflict 03/07/2013 Rectocele 05/13/2009 SVT (supraventricular tachycardia) ([facility]) Has seen cardiology at OSH, many [...] 2 stroke Colon Cancer Father age 64 [place] Diabetes Father Type 2 Hypertension Father Coronary Artery Disease Father Hx of [place] Thyroid Sister hx of parathyroid disease/ hx [...] History Social History Narrative She lives in [place] [address] 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 Paul Duron MD Reviewed S+S to report for further evaluation. Note dictated using voice recognition software. documented in this encounterSt. [facility]11-[facility]22 Instructions* Patient Instructions* Paul Duron MD - 02/27/2022 1:08 PM EDT Images from the original note were not included. Paul Duron MD, [facility] Professor of maintenance and custodian supervisor & Reproductive Biology Staffing Manager & Women's Health [place] [facility] of Subspecialty Women's Health IMPORTANT NOTE: we cannot refill prescriptions without a yearly appointment. Appointments OFTEN BOOK OUT 6 months. Please ARRANGE appointments in advance so that prescription refill requests are not INTERUPPTED. Primary office numbers (at [facility], for general questions, all paperwork requests, etc): General questions ; scheduling appointments (please avoid faxing items to [place] office) Alternative contact numbers: [place] Staffing Manager: [phone] The general scheduling line for all Medical Coding Technician departments (after hours times available): [phone] I see patients in the following locations: Tuesdays, [facility] Wednesdays & , [facility] Mondays and Fridays: Add-on virtual visits [...] the next few weeks that work for me. It is important to include in your message multiple date/time windows that works for youin the upcoming several weeks, given flexibility in my schedule will vary. Using this phrasing willhelp prevent delays in getting the message to me. Times I can add patients into the schedule include: Mondays, (virtual only) Tuesdays 3 or 3:30 PM, (virtual or [place] office) Wednesdays 3:30 (virtual or [place] [facility], most difficult day for me) before 11:30 or between 2:30-3:30, afternoon preferred (virtual or [place] A[facility]) Fridays, (virtual only) For more routine gynecologic concerns (bleeding, vaginal infections, etc), we work with an amazing group of doctors and nurse practitioners who help each other out, not to mention the [facility] visits that are available online or at walk-in clinics throughout [facility]. Any clinicianin the department can you see you for these more general needs, as I work as a outreach consultant for more of the specialty hormonal concerns. If you don't get a timely response from me, please don't hesitate to be persistent! Occasionally wemay have nurses and schedulers helping out temporarily in our office, causing some delays in getting the message to me. MyChart messages are allowed a 3 business day turnaround. For more urgent matter s, it is always best to contact the [...] 45, earlier if there is a family familyhistory or symptoms. With a family history of [...] regular primary care doctor. documented in this encounterSt. [facility]10[facility] History of Present illness Narrative* Dona Munoz, PAPER CONE MAKER.NARCOTICS AND VICE DETECTIVE - 02/20/2022 1:30 PM EDT 02/20/2022 Patient presents with: Hoarseness: X7 days [...] productive of clear sputum at times. Has completedthree COVID-19 tests all negative. Reports this AM when she got up she checked her pulse ox at homeand she was 85% but then she coughed and it went up to 95%. Reports she quit smoking five days ago.Not taking any OTC medications. Has been trying to rest her voice. Denies fevers, chills, headache,nasal congestion, rhinorrhea, sore throat, difficult or painful [...] ALLERGIES Codeine, Percocet [Oxycodone-Acetaminophen], Solumedrol [Methylprednisolone Sodium Succ],Vicodin [Hydrocodone-Acetaminophen], Metformin, Norethindrone, Pepcid [Famotidine (Pf)], and Tapazole [Methimazole] MEDICATIONS Current Outpatient Medications Medication Sig lisdexamfetamine (VYVANSE) 10 mg capsule Take 1 capsule by mouth once daily for 30 days. drospirenone, contraceptive, (SLYND) 4 mg (28) tabet Take 1 tablet by mouth every other day. Take 1pill by mouth every other day. Noncontraceptive purpose, self-pay. Please apply company discount [employer] 0.0375 mg/24 hr Apply half patch, and change every other day. MD aware-patient is fast metabolizer, pt needs this sig for tolerability. YULISSA- [employer] resident care manager rn SYNTHROID 150 mcg tablet Take 1 tablet [...] which included preparing to see the patient, qudo-lc-pyth patient care, completing clinical documentation, obtaining and/or reviewing separately obtained history, performing a medically appropriate examination, and counseling and educating the patient/family/caregiver. documented in this encounterSt. [facility]10-28-[facility]22 Miscellaneous Notes* Telephone Encounter - Dona Munoz APRN.CNP - 02/20/2022 1:08 PM EDT Reviewed. Dona Munoz APRN.DHIRAJ * Telephone Encounter - Nella Hernandez RN - 02/20/2022 12:57 PM EDT Patient reports hoarseness and inability to talk much will discuss symptoms at appointment. Patientangry that this nurse called to discuss appointment request/symptoms. Nurse triage completed with limited answers. Protocol recommends see provider within 3 days with minimal answers received. [facility] appo intment already scheduled for today. Reason for Disposition [...] was told not to talk a lot d/thoarseness but didn't report by who. 10. : Not answered. Protocols used: [id number] documented in this encounterSt. [facility] Hospital10-10-2022 Miscellaneous Notes* Telephone Encounter - Sudha Pink LPN - 02/02/2022 11:56 AM EDT Patient has been identified by name and date of : Yes Requested Prescriptions Pending Prescriptions Disp Refills lisdexamfetamine (VYVANSE) 10 mg capsule 30 capsule 0 Sig: Take 1 capsule by mouth once daily for 30 days. RX INSTRUCTIONS: Patient aware RX will be sent to pharmacy. No need to notify patient. MyChart request. Sudha Pink LPN documented in this encounterSt. [facility] Hospital10-04-2022 History of Present illness Narrative* Paul Duron MD - 01/27/2022 5:51 PM EDT I spent a total of 30+ minutes on the date of the service which included preparing to see the patient, dtsr-ne-doma patient care, completing clinical documentation, obtaining and/or reviewing separately obtained history, counseling and educating the patient/family/caregiver, and ordering medications, tests, or procedures. * Paul Duron MD - 01/27/2022 1:40 PM EDT Virtual visit-scheduled January 27, 2022 Start review [...] resolve, this would occur consistently. Hx of ovariancysts, was scheduled for surgery to have removed, she insisted on repeat ultrasound because felt that the cyst was resolved, she was right. Didn't need the surgery. However she did have left oophorectomy for benign reasons. LMP in 2009, age [age]. Lab confirmed menopause-soon after gynecologic surgery. Since then symptoms are debilitating, disabled and cannot leave her house, difficult for her todrive. When in menopause many of the symptoms [...] the estrogen (mood, hair, moisture of mucous me mbranes), but the levels are not sustained with the typical frequency of the formulations. When shegets too much estrogen gets fluid retention. She [...] the patch her HR would come down. [employer] resident care manager rn of Vivelle patch: feels it depletes too quickly Combipatch- HR was high 130s sinus tach noted with PCP, so was told her to come off due to possibleallergy. Saw cards and EP- told heart is not the problem, but a symptom of what is going on. Came off after 3 days, also felt drunk and dizzy with it. After she stopped taking it states took 1 mo forthe drunken dizzy sensation to go away. estrogel- [...] it was too much. The pharmacist was managing.3 mg E2/0.5 of E3, she didn't feel comfortable with the way the pharmacist wanted to change the dosing. She felt that it was too E2 heavy. biest 08/15 rxed from us, 1 Click 0.25 g (which we typically use for vaginal local low-dose therapy)of the cream and pickle sorter a 1 mL syringe, start with use [...] best on 37.5 patch in the past. Almo that it was not enough, so on [...] its performance characteristics determined by [facility] in a manner consistent with CLIA requirements. This test has not been cleared or approved by the U.S. Food and Drug Administration. 12/04/2019 20 8 - 60 ng/dL Final Comment: (NOTE) ADDITIONAL INFORMATION Testing performed by Liquid Chromatography-Tandem Mass Spectrometry (LC-MS/MS). This test was developed and its performance characteristics determined by [facility] in a manner consistent with CLIA requirements. This test has not been cleared or approved by the U.S. Food and Drug Administration. 09/06/2019 23 8 - 60 ng/dL Final Comment: (NOTE) ADDITIONAL INFORMATION Testing performed by Liquid Chromatography-Tandem Mass Spectrometry (LC-MS/MS). This test was developed and its performance characteristics determined by [facility] in a manner consistent with CLIA requirements. This test has not been cleared or approved by the U.S. Food and Drug Administration. 08/16/2019 22 8 - 60 ng/dL Final Comment: (NOTE) ADDITIONAL INFORMATION Testing performed by Liquid Chromatography-Tandem Mass Spectrometry (LC-MS/MS). This test was developed and its performance characteristics determined by [facility] in a manner consistent with CLIA requirements. This test has not been cleared or approved by the U.S. Food and Drug Administration. 06/15/2019 30 8 - 60 ng/dL Final Comment: (NOTE) ADDITIONAL INFORMATION Testing performed by Liquid Chromatography-Tandem Mass Spectrometry (LC-MS/MS). This test was developed and its performance characteristics determined by [facility] in a manner consistent with CLIA requirements. This test has not been cleared or approved by the U.S. Food and Drug Administration. 12/12/2018 See Comment <40 ng/dL Final Comment: The total testosterone result is 20 ng/dL, the reference range of [facility] is 8 to 60 ng/dL. Disregard [facility] reference range. Interpret the result using the reference range provided by the performing laboratory. Results should not be compared to previously reported results using [facility]'s assay due to differences in methodology. Test performed by: [facility], [place], [place] Testing performed by Liquid Chromatography Tandem [...] Bowel Syndrome With Diarrhea Systemic Lupus Erythematosus ([facility]) Burning Sensation of Mouth Burning Sensation of Skin Sleep Difficulties Mitral Valve Prolapse Screening for Malignant Neoplasm of The Cervix Visit for Pelvic Exam Encounter for Screening Mammogram for Malignant Neoplasm of Breast Estrogen Deficiency Adrenal Adenoma, Left Andressa (Obstructive Sleep Apnea) Other Chest Pain Nocturnal Oxygen Desaturation 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) Cyp2c9 Intermediate Metabolizer (Hcc) [id number] Rapid Metabolizer (Hcc) Ugt1a1 Intermediate Metabolizer (Hcc) Heterozygous Factor V Leiden Mutation ([facility]) Hormone Deficiency PAST MEDICAL HISTORY Diagnosis Date [...] conflict 03/07/2013 Rectocele 05/13/2009 SVT (supraventricular tachycardia) ([facility]) Has seen cardiology at [facility], many [...] 2 stroke Colon Cancer Father age 64 ND Diabetes Father Type 2 Hypertension Father Coronary Artery Disease Father Hx of [place] Thyroid Sister hx of parathyroid disease/ hx [...] History Social History Narrative She lives in [place] [address] 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 Paul Duron MD Reviewed S+S to report for further evaluation. Note dictated using voice recognition software. documented in this encounterSt. Elizabeth Hospital10-04-2022 Instructions* Patient Instructions* Paul Duron MD - 01/27/2022 5:51 PM EDT Images from the original note were not included. Paul Duron MD, [facility] Professor of maintenance and custodian supervisor & Reproductive Biology Staffing Manager & [facility] [place] Dept of Subspecialty Women's Health IMPORTANT NOTE: we cannot refill prescriptions without a yearly appointment. Appointments OFTEN BOOK OUT 6 months. Please ARRANGE appointments in advance so that prescription refill requests are not INTERUPPTED. Primary office numbers (at [facility], for general questions, all paperwork requests, etc): General questions ; scheduling appointments (please avoid faxing items to [place] office) Alternative contact numbers: Bradley, Staffing Manager: The general scheduling line for all Medical Coding Technician departments (after hours times available): [phone] I see patients in the following locations: Tuesdays, [facility] Wednesdays & , [facility] Mondays and Fridays: Add-on virtual visits only Getting an appointment when you need it: Calling the office offers the most options for appointments with me which can be virtual (video visit) or in person on a Wednesday, Wednesday, or . If needing an earlier appointment from what is offered, I can add you to my schedule if you send me a Shodogg message. Since Shodogg messages go to our nursing teams first, it's helpful if you write something like Per our conversation, you mentioned you can add me in for a virtual visit, here are some dates/times in the next few weeks that work for me. It is important to include in your message multiple date/time windows that works for youin the upcoming several weeks, given flexibility in my schedule will vary. Using this phrasing willhelp prevent delays in getting the message to me. Times I can add patients into the schedule include: Preferred times are: Wednesdays at 8 am or at 12:30 (typically virtual) Other times include: Mondays 9-2, (virtual only) Tuesdays 3 or 3:30 PM, (virtual or [place] office) Wednesdays 3:30 (virtual or [place] [facility]) before 11:30 or between 2:30-3:30, afternoon preferred (virtual or [place] [facility]) Fridays-, (virtual only) For more routine gynecologic concerns (bleeding, vaginal infections, etc), we work with an amazing group of doctors and nurse practitioners who help each other out, not to mention the [facility] Express Care visits that are available online or at walk-in clinics throughout [facility]. This usually works out great, but just in case you don't get a timely response from me, please don't hesitate to be persistent! Occasionally we may have nurses and schedulers helping out temporarily in our office,causing some delays in getting the message to [...] 45, earlier if there is a family familyhistory or symptoms. With a family history of [...] regular primary care doctor. documented in this encounterSt. Elizabeth Hospital09-12-2022 Miscellaneous Notes* Telephone Encounter - Sudha Shepherd Ma - 01/05/2022 10:27 AM EDT Pt informed, verbalized understanding. Pt reports she has a follow up appt with Medical Coding Technician on 01/27 to discuss results. Sudha Shepherd Ma * Telephone Encounter - Freddy Nava MD - 01/05/2022 9:01 AM EDT Let her know I talked to coding technician about her ultrasound. Given her endometrium is thickening on hormones. They recommend she follow up with them. May need it checked out further. * Telephone Encounter - Freddy Nava MD - 01/05/2022 8:59 AM EDT ----- Message from Ofe Garcia APRN.CNP sent at 01/05/2022 8:46 AM EDT ----- Good Morning, Since she is postmenopausal the lining should not be getting thicker. She should have an endometrial biopsy done just to ensure there isn't any type of cancer going on. Ofe Garcia APRN.CNP ----- Message ----- From: Freddy Nava MD Sent: 01/02/2022 8:03 PM EDT To: GIOVANNI Kent: I had done an us on her for groin pain. Her endometrium is under 10 mm but is slightly thicker thanbefore and I think they still have her on estrogen. Anything we need to be concerned about? Aurora Nava documented in this encounterSt. Elizabeth Hospital09-09-2022 History of Present illness Narrative* Alysa German, RT(R) - 01/02/2022 1:45 PM EDT Radiology Service Progress Note PATIENT NAME: Maribell Garzon DATE OF SERVICE: January 02, 2022 TIME: 2:33 PM PATIENT IDENTITY VERIFICATION COMPLETED USING TWO (2) IDENTIFIERS: Name and Date of confirmedby patient verbally. FALL SCREENING: Has the patient [...] 02, 2022 2:33 PM documented in this encounterSt. Elizabeth Hospital09-08-2022 Miscellaneous Notes* Telephone Encounter - Sudha Pink LPN - 01/01/2022 5:12 PM EDT Patient notified and verbalizes understanding. She will call tomorrow to set up. * Telephone Encounter - Freddy Nava MD - 01/01/2022 4:35 PM EDT We can order one. It does show that better than a ct ,however, usually if they are of any significant size a ct will show. * Telephone Encounter - Maribell Garcia Ma - 01/01/2022 4:08 PM EDT Patient was made aware of the results. Still having cramping and pulling in groin. Passing BM's better. She thinks in is from her uterus and asking for an US. Had cysts previously. * Telephone Encounter - Freddy Nava MD - 01/01/2022 3:[address] is ok. Shows few ? Tiny cysts in the kidneys. Could consider reimaging them with an ultrasound in six months. Otherwise is negative. Check how feeling. documented in this encounterSt. Elizabeth Hospital09-08-2022 History of Present illness Narrative* Jannet Santoyo, RT(R) - 01/01/2022 2:00 PM EDT Radiology Service Progress Note DATE OF SERVICE: [...] creatinine assay has traceable calibration to isotope dilution- mass spectrometry. Refer to KDIGO guidelines for clinical interpretation. In patients with unstable renal function, e.g. those with acute kidney injury, the eGFRmay not accurately reflect actual GFR. eGFR- Date Value Ref Range Status 04/24/2021 >60 Final P.O.C.T. RESULTS: POC done: Yes, See Lab Tab January 01, 2022 TREATMENT: N/A PERIPHERAL IV DATA: Ambulatory: A peripheral IV was started in the Right antecubital site with a Angio cath: 22 gauge. RADIOLOGY DEPARTMENT: CT; Exam(s) Completed: Abdomen/Pelvis SIGNATURE: RT Camilo(R) PATIENT NAME: Maribell Garzon DATE: January 01, 2022 TIME: 2:51 PM documented in this encounterSt. Elizabeth Hospital09-07-2022 History of Present illness Narrative* Freddy Nava MD - 12/31/2021 2:11 PM EDT Patient presents with: Abdominal Pain HPI: Patient presents today for office visit for Patient complains of: abd pain/back pain. Duration: 1 week Location:Q Associated Symptoms: changes in bowels Started about a week ago. Saw chiropractic which made it worse. Saw [facility] yesterday. Started with lower back and [...] needs this sig for tolerability. 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 REVIEW OF SYSTEMS All other [...] R10.32 - CT ABD/PEL W IVCON Freddy Nava MD documented in this encounterSt. Elizabeth Hospital09-06-2022 Miscellaneous Notes* Telephone Encounter - Freddy Nava MD - 12/30/2021 12:52 PM EDT documented in this encounterSt. Elizabeth Hospital09-02-2022 Miscellaneous Notes* Telephone Encounter - Ivy Hadley RN - 12/26/2021 1:15 PM EDT [facility]. Awaiting response. Ivy Hadley RN * Telephone Encounter - Allison SibleyAlejandro [facility] - 12/26/2021 10:47 AM EDT Patient of Dr. Duron Medication question The [facility] pharmacy caller Jose called and stated the Vivelle Dot was written as . YULISSA- Sandoz resident care manager rn The insurance states this manufacture is excluded. Not sure if the office would like to do a PA or re write the script. [facility] [phone] Thank you Allison Allen documented in this encounterSt. Elizabeth Hospital09-01-2022 Miscellaneous Notes* Telephone Encounter - Nayeli Martin RN - 2021 12:54 PM EDT RX pending ANCELMO 12/18/2021 The following diagnoses [...] that have worked better for her (change everyother day, placed on buttock). However, can only [...] half or even quarter dose (longer half-life halfpill so can be taken every other day). Will make 1 change at a time, added into schedule 01/27 to talk about the addition of the progestin. She will look into the options to make Slynd more affordablein the interim. If she does not do well with the patch dosing, discussed how to fill up the syringewith the biest and slowly use daily dose by increasing 0.1ml and titrating up as tolerated, as per our plans from last visit. I will leave to her discretion which estrogen she tolerates better. No orders found for this visit on 12/18/21. Paul Duron MD documented in this encounterSt. Elizabeth Hospital08-30-2022 History of Present illness Narrative* Ofe Garcia APRN.NARCOTICS AND VICE DETECTIVE - 12/23/2021 8:04 AM EDT Horticulture Supervisor offered: Patient declines. 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 LMP: 03/10/2010, Postmenopausal Age at Menarche: Age at First : Age at Menopause: Medical Coding Technician History Comments: Sexual Activity: Not Currently; Male [...] conflict 03/07/2013 Rectocele 05/13/2009 SVT (supraventricular tachycardia) ([facility]) Has seen cardiology at [facility], many [...] Date CERVIX UTERI CONIZA LP ELCTRO EXCI 2002 LEEP-Cervix COLONOSCOPY 04/2017 says pancho EGD W/O OR W/BRUSH/WASH 01/22/2014,2009 EGD LAPAROSCOPIC CHOLEYCYSTECTOMY 05/19/2011 LIGATE FALLOPIAN TUBE 2004 Tubal ligation PAST SURGICAL HISTORY OF 1998 tubal PAST SURGICAL HISTORY OF 2001 thyroid ablation REMOVAL OF OVARY(S) 09/2014 laparoscopic left, CW, umbilical/upper abdominal adhesions seen benign FAMILY HISTORY Problem Relation Age of Onset Diabetes Mother Type 2 stroke Colon Cancer Father age 64 ND Diabetes Father Type 2 Hypertension Father Coronary Artery Disease Father Hx of ND Thyroid Sister hx of parathyroid disease/ hx [...] external genitalia normal, normal [place]'s glands, urethra, [place]'s glands, no vulvar lesions, no cervical lesions, [...] one year or sooner as needed Ofe Garcia APRN.CNP documented in this encounterSt. Elizabeth Hospital08-25-2022 History of Present illness Narrative* Paul Duron MD - 12/18/2021 5:56 PM EDT I spent a total of 40+ minutes on the date of the service which included preparing to see the patient, [id number] patient care, completing clinical documentation, obtaining and/or reviewing separately obtained history, counseling and educating the patient/family/caregiver, and ordering medications, tests, or procedures. Real-time telemedicine visit using audiovisual technology with patient's verbal consent. Name and verified. * Paul Duron MD - 12/18/2021 4:12 PM EDT Virtual visit-scheduled December 18, 2021 Start review of records, labs, interim events 4:12 PM Maribell Garzon is a 55 year old [...] resolve, this would occur consistently. Hx of ovariancysts, was scheduled for surgery to have removed, she insisted on repeat ultrasound because felt that the cyst was resolved, she was right. Didn't need the surgery. However she did have left oophorectomy for benign reasons. LMP in 2009, age 42-43. Lab confirmed menopause-soon after gynecologic surgery. Since then symptoms are debilitating, disabled and cannot leave her house, difficult for her todrive. When in menopause many of the symptoms [...] the estrogen (mood, hair, moisture of mucous me mbranes) experienced with the estrogen, but the levels are not sustained with the typical frequencyof the formulations. When she gets too much [...] told her to come off due to possibleallergy. Saw cards and EP- told heart is not the problem, but a symptom of what is going on. Came off after 3 days, also felt drunk and dizzy with it. After she stopped taking it states took 1 mo forthe drunken dizzy sensation to go away. estrogel- [...] much. The pharmacist was managing. 3 mg E2/0.5of E3, she didn't feel comfortable with the way the pharmacist wanted to change the dosing. She felt that it was too E2 heavy. 08/15 rxed biest 1-Click 0.25 g (which we typically use for vaginal local low- dose therapy) of the cream and pickle sorter a 1 mL syringe, start with use [...] buttock instead of the abdomen. Crossover 1-2 hoursby leaving the older patch on. Thinks she [...] Htn Impaired Glucose Tolerance Svt (Supraventricular Tachycardia) ([facility]) Ptsd (Post-Traumatic Stress Disorder) Attention Deficit Hyperactivity Disorder (Adhd), Combined Type Recurrent Major Depressive Disorder, in Partial Remission ([facility]) menopause age 43 Tobacco Use Gerd Without Esophagitis Simple Chronic Bronchitis ([facility]) Irritable Bowel Syndrome With Diarrhea Systemic Lupus Erythematosus ([facility]) Burning Sensation of Mouth Burning Sensation of Skin Sleep Difficulties Mitral Valve Prolapse Screening for Malignant Neoplasm of The Cervix Visit for Pelvic Exam Encounter for Screening Mammogram for Malignant Neoplasm of Breast Estrogen Deficiency Adrenal Adenoma, Left Andressa (Obstructive Sleep Apnea) Other Chest Pain Nocturnal Oxygen Desaturation 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) Cyp2c9 Intermediate Metabolizer (Hcc) [id number] Rapid Metabolizer (Hcc) Ugt1a1 Intermediate Metabolizer (Hcc) [...] 2 stroke Colon Cancer Father age 64 ND Diabetes Father Type 2 Hypertension Father Coronary Artery Disease Father Hx of ND Thyroid Sister hx of parathyroid disease/ hx [...] History Social History Narrative She lives in [place] [address] 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 However, can only [...] half or even quarter dose (longer half-life halfpill so can be taken every other day). Will make 1 change at a time, added into schedule 01/27 to talk about the addition of the progestin. She will look into the options to make Slynd more affordablein the interim. If she does not do well with the patch dosing, discussed how to fill up the syringewith the biest and slowly use daily dose by increasing 0.1ml and titrating up as tolerated, as per our plans from last visit. I will leave to her discretion which estrogen she tolerates better. No orders found for this visit on 12/18/21. Paul Duron MD Reviewed S+S to report for further evaluation. Note dictated using voice recognition software. documented in this encounterSt. Elizabeth Hospital08-25-2022 Instructions* Patient Instructions* Paul Duron MD - 12/18/2021 5:13 PM EDT Images from the original note were not included. Paul Duron MD, [facility] Professor of maintenance and custodian supervisor & Reproductive Biology Staffing Manager & [facility] [place] Dept of Subspecialty Women's Health IMPORTANT NOTE: we cannot refill prescriptions without a yearly appointment. Appointments OFTEN BOOK OUT 6 months. Please ARRANGE appointments in advance so that prescription refill requests are not INTERUPPTED. Primary office numbers (at [facility], for general questions, all paperwork requests, etc): General questions ; scheduling appointments (please avoid faxing items to [place] office) Alternative contact numbers: Bradley, Staffing Manager: The general scheduling line for all Medical Coding Technician departments (after hours times available): [phone] I see patients in the following locations: Tuesdays, [facility] Wednesdays & , [facility] Mondays and Fridays: Add-on virtual visits only Getting an appointment when you need it: Calling the office offers the most options for appointments with me which can be virtual (video visit) or in person on a Wednesday, Wednesday, or . If needing an earlier appointment from what is offered, I can add you to my schedule if you send me a Shodogg message. Since [employer] messages go to our nursing teams first, it's helpful if you write something like Per our conversation, you mentioned you can add me in for a virtual visit, here are some dates/times in the next few weeks that work for me. It is important to include in your message multiple date/time windows that works for youin the upcoming several weeks, given flexibility in my schedule will vary. Using this phrasing willhelp prevent delays in getting the message to me. Times I can add patients into the schedule include: Preferred times are: Wednesdays at 8 am or at 12:30 (typically virtual) Other times include: Mondays 9-2, (virtual only) Tuesdays 3 or 3:30 PM, (virtual or [place] office) Wednesdays 3:30 (virtual or [facility]) before 11:30 or between 2:30-3:30, afternoon preferred (virtual or [place] [facility]) Fridays, (virtual only) For more routine gynecologic concerns (bleeding, vaginal infections, etc), we work with an amazing group of doctors and nurse practitioners who help each other out, not to mention the [facility] Care visits that are available online or at walk-in clinics throughout [facility]. This usually works out great, but just in case you don't get a timely response from me, please don't hesitate to be persistent! Occasionally we may have nurses and schedulers helping out temporarily in our office,causing some delays in getting the message to [...] 45, earlier if there is a family familyhistory or symptoms. With a family history of [...] regular primary care doctor. documented in this encounterSt. Elizabeth Hospital08-22-2022 Miscellaneous Notes* Telephone Encounter - Shakir Andino LPN - 12/15/2021 9:07 AM EDT Patient phones requesting refills as follows: Requested Prescriptions Pending Prescriptions Disp Refills SYNTHROID 150 mcg tablet 30 tablet 11 Sig: Take 1 tablet by mouth once daily. Take 1 tab by mouth once daily. ANCELMO 11/17/21 NOV no upcoming appt Please review and advise. Shakir Andino LPN documented in this encounterSt. Elizabeth Hospital07-25-2022 History of Present illness Narrative* Freddy Nava MD - 11/17/2021 10:00 AM EDT Patient presents with: Follow Up HPI:This Team [...] 2 stroke Colon Cancer Father age 64 ND Diabetes Father Type 2 Hypertension Father Coronary Artery Disease Father Hx of [place] Thyroid Sister hx of parathyroid disease/ hx [...] past medical history, surgical history, family history andsocial history today. REVIEW OF SYSTEMS All other [...] patient. Advised them to call if any sideeffects or questions. - will send note that she cannot work until doing better. - LISDEXAMFETAMINE 10 MG CAPSULE 2. Anxiety with depression - ICD9: 300.4, ICD10: F41.8 - as above. She is off the pristiq 3. 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 Freddy Nava RTO in one month and prn. documented in this encounterSt. Elizabeth Hospital07-07-2022 Miscellaneous Notes* Telephone Encounter - Shante Stafford Ma - 10/30/2021 12:07 PM EDT Called [facility] which advised rx was not received electronically. Did call in rx which pharmacist on phone. Patient aware was not received but did manually call in so will be ready for pickle sorter. Shante Stafford Ma * Telephone Encounter - Carlee Galdamez RN - 10/30/2021 12:01 PM EDT Pt called in reporting her blood glucose testing strips never went through to [facility]. Asked Auth Dept about it because it said PA was canceled. They said it was a generic test strip and did not need a PA. She was going to call pharmacy. documented in this encounterSt. Elizabeth Hospital06-11-2022 Miscellaneous Notes* Telephone Encounter - Yue Vital LPN - 10/04/2021 9:26 AM EDT Patient has been identified by name and [...] you. Yue Vital LPN documented in this encounterSt. Elizabeth Hospital05-11-2022 Miscellaneous Notes* Telephone Encounter - Shante Stafford Ma - 09/03/2021 7:12 PM EDT PA approved from 08/04/21-09/03/22 Faxed approval to pharmacy Shante Stafford Ma * Telephone Encounter - Connie Taveras LPN - 09/02/2021 12:26 PM EDT Prior Authorization has been completed online at [employer] for [facility], will await response. XIONG- [id number] Please keep encounter open until final decision has been received and documented from insurance company. China Taveras LPN documented in this encounterSt. Elizabeth Hospital05-06-2022 History of Present illness Narrative* Freddy Nava MD - 08/29/2021 8:52 AM EDT Patient presents with: Acute Visit HPI:This Team [...] 2 stroke Colon Cancer Father age 64 ND Diabetes Father Type 2 Hypertension Father Coronary Artery Disease Father Hx of [place] Thyroid Sister hx of parathyroid disease/ hx [...] past medical history, surgical history, family history andsocial history today. REVIEW OF SYSTEMS All other [...] patient. Advised them to call if any sideeffects or questions. - DESVENLAFAXINE SUCCINATE ER 25 MG TABLET,EXTENDED RELEASE 24 HR Freddy LAW in one month documented in this encounterSt. Elizabeth Hospital04-13-2022 Miscellaneous Notes* Telephone Encounter - Renee Prado Ma - 08/06/2021 8:26 AM EDT See Rafterhart message. Renee Prado Ma documented in this encounterSt. Elizabeth Hospital04-07-2022 History of Present illness Narrative* Paul Duron MD - 07/31/2021 7:43 PM EDT I spent a total of 30+ minutes on the date of the service which included preparing to see the patient, [id number] patient care, completing clinical documentation, obtaining and/or reviewing separately obtained history, counseling and educating the patient/family/caregiver, ordering medications, te sts, or procedures, communicating with other HCPs (not separately reported) and independently interpreting results (not separately reported). Real-time telemedicine visit using audiovisual technologywith patient's verbal consent. Name and verified. * Paul Duron MD - 07/31/2021 11:55 AM EDT Virtual visit-scheduled July 31, 2021 Start review of records, labs, interim events 11:55 AM Mariblel Garzon is a 55 year old year [...] symptoms that she would experience premenstrually got muchworse. Including arthralgias, told fibromyalgia, she did not believe diagnosis. Anxiety was bad, tried multiple meds. Dry eyes, severe. Burning mouth (goes away completely with the ET). Brain fog. Has been seeing medical providers for multiple concerns. Is heterozygous for MTHFR mutation, never hada VTE with 6 pregnancies. Did see hematology [...] 3. In 4-6 hrs helps, light turns on. Within 24 hours starts to feel waning effects, and by 3 day is feeling miserable again. No fluidretention, in fact that is better that is has been. This is most success she has had tolerating hormones in a long time. However when during and off estrogen. Gets multiple symptoms again, got her thyroid checked and she is hyperthyroid in the interim. Also lost 25 lbs., so it is very confusing forher was the taxicab driver of her symptoms. Reinforced our original [...] taking a long time to find a tolerableprogestin, may need to stop the estradiol in the interim while we experiment with different options. Currently still within 6 weeks of very low- dose estrogen only options. At this current regimen, [...] and she will need a follow-up within 3months so that we can talk about the [...] tolerance beyond walking within the house. Since we 're doing close follow-up, she will contact the [...] told her to come off due to possibleallergy. Saw cards and EP- told heart is not the problem, but a symptom of what is going on. Came off after 3 days, also felt drunk and dizzy with it. After she stopped taking it states took 1 mo forthe drunken dizzy sensation to go away. estrogel- [...] much. The pharmacist was managing. 3 mg E2/0.5of E3, she didn't feel comfortable with the [...] manufacturing issues, and when it was finally available,it was cost prohibitive. So she has not been on any hormone therapy since this time. Would like to review her concerns aboutbeing a CYP supermetabolizer Vit d being offered [...] Intermediate Metabolizer (Hcc) Cyp2c9 Intermediate Metabolizer (Hcc) [id number] Rapid Metabolizer (Hcc) Ugt1a1 Intermediate Metabolizer (Hcc) [...] conflict 03/07/2013 Rectocele 05/13/2009 SVT (supraventricular tachycardia) ([facility]) Has seen cardiology at [facility], many [...] 2 stroke Colon Cancer Father age 64 [place] Diabetes Father Type 2 Hypertension Father Coronary Artery Disease Father Hx of [place] Thyroid Sister hx of parathyroid disease/ hx [...] History Social History Narrative She lives in [place] [address] 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 See back after 12 weeks after she has a chance to very slowly adjust the dose as tolerated. If she is doing okaywith this, we still have the task of finding a progestin that she tolerates. However if she does not do well with this, may need to have her see functional medicine group. No orders found for this visit on 07/31/21. Paul Duron MD Reviewed S+S to report for further evaluation. Note dictated using voice recognition software. [facility] Instructions* Patient Instructions* Paul Duron MD - 07/31/2021 7:42 PM EDT Images from the original note were not included. Paul Duron MD, [facility] Turbine Engine Assembler of maintenance and custodian supervisor & Reproductive Biology Staffing Manager & [facility] [place] [facility] Women's [facility] Primary office numbers (at [facility], for general questions, all paperwork requests, etc): General questions ; scheduling appointments (please avoid faxing items to [place] office) Alternative contact numbers: [place] Staffing Manager: The general scheduling line for all Medical Coding Technician departments (after hours times available): [phone] I see patients in the following locations: Tuesdays, [facility] Wednesdays & , [facility] Mondays and Fridays: Add-on virtual visits only Getting an appointment when you need it: Calling the office offers the most options for appointments with me which can be virtual (video visit) or in person on a Wednesday, Wednesday, or . If needing an earlier appointment from what is offered, I can add you to my schedule if you send me a [employer] message. Since [employer] messages go to our nursing teams first, it's helpful if you write something like Per our conversation, you mentioned you can add me in for a virtual visit, here are some dates/times in the next few weeks that work for me. It is important to include in your message multiple date/time windows that works for youin the upcoming several weeks, given flexibility in my schedule will vary. Using this phrasing willhelp prevent delays in getting the message to me. Times I can add patients into the schedule include: Mondays, (virtual only) Tuesdays 3 or 3:30 PM, ([facility] or [place] office) Wednesdays 3:30 ([facility] or [facility] [place] [facility]) before 11:30 or between 2:30-3:30, afternoon preferred ([facility] or [facility] [place] [facility]) Fridays, (virtual only) For more routine gynecologic concerns (bleeding, vaginal infections, etc), we work with an amazing group of doctors and nurse practitioners who help each other out, not to mention the [facility] visits that are available online or at walk-in clinics throughout [facility]. This usually works out great, but just in case you don't get a timely response from me, please don't hesitate to be persistent! Occasionally we may have nurses and schedulers helping out temporarily in our office,causing some delays in getting the message to [...] 45, earlier if there is a family familyhistory or symptoms. With a family history of [...] regular primary care doctor. documented in this encounterSt. [facility] Miscellaneous Notes* Telephone Encounter - Sahra Ja - 07/25/2021 3:06 PM EDT LV:01/27/2021 The following diagnoses were relevant to [...] and she will need a follow-up within 3months so that we can talk about the [...] tolerance beyond walking within the house. Since we 're doing close follow-up, she will contact the office to arrange several follow-up appointments now Future appt:12/18/2021 documented in this encounterSt. [facility] History of Past illness Narrative* Problem Noted [...] of this encounter (statuses as of 07/21/2021) [facility] Narrative* Problem Noted [...] of this encounter (statuses as of 07/27/2021) [facility] Narrative* Problem Noted [...] of this encounter (statuses as of 07/31/2021) [facility] Narrative* Problem Noted [...] of this encounter (statuses as of 08/01/2021) [facility] Narrative* Problem Noted [...] of this encounter (statuses as of 08/06/2021) [facility] Narrative* Problem Noted [...] of this encounter (statuses as of 08/29/2021) [facility] Narrative* Problem Noted [...] of this encounter (statuses as of 09/03/2021) [facility] N[facility]ative* Problem Noted [...] of this encounter (statuses as of 10/06/2021) [facility] N[facility]ative* Problem Noted [...] of this encounter (statuses as of 10/30/2021) [facility] N[facility]ative* Problem Noted [...] of this encounter (statuses as of 11/17/2021) [facility] N[facility]ative* Problem Noted [...] of this encounter (statuses as of 12/15/2021) [facility] N[facility]ative* Problem Noted [...] of this encounter (statuses as of 12/18/2021) [facility] Narrative* Problem Noted [...] of this encounter (statuses as of 12/23/2021) [facility] N[facility]ative* Problem Noted [...] of this encounter (statuses as of 2021) [facility] N[facility]ative* Problem Noted [...] of this encounter (statuses as of 12/26/2021) [facility] N[facility]ative* Problem Noted [...] of this encounter (statuses as of 12/30/2021) [facility] N[facility]ative* Problem Noted [...] of this encounter (statuses as of 12/31/2021) [facility] N[facility]ative* Problem Noted [...] of this encounter (statuses as of 01/01/2022) [facility] N[facility]ative* Problem Noted [...] of this encounter (statuses as of 01/02/2022) [facility]* Problem Noted [...] of this encounter (statuses as of 01/02/2022) [facility] N[facility]* Problem Noted [...] of this encounter (statuses as of 01/03/2022) [facility]* Problem Noted [...] of this encounter (statuses as of 01/05/2022) [facility]* Problem Noted [...] of this encounter (statuses as of 01/27/2022) [facility]* Problem Noted [...] of this encounter (statuses as of 02/02/2022) [facility]* Problem Noted [...] of this encounter (statuses as of 02/20/2022) [facility]* Problem Noted [...] of this encounter (statuses as of 02/23/2022) [facility]* Problem Noted [...] of this encounter (statuses as of 02/27/2022) [facility] N[facility]* Problem Noted [...] of this encounter (statuses as of 03/09/2022) [facility]* Problem Noted [...] of this encounter (statuses as of 03/16/2022) [facility]* Problem Noted [...] of this encounter (statuses as of 03/27/2022) [facility]* Problem Noted [...] of this encounter (statuses as of 05/02/2022) [facility]* Problem Noted [...] of this encounter (statuses as of 05/21/2022) [facility]* Problem Noted [...] of this encounter (statuses as of 05/28/2022) [facility]* Problem Noted [...] of this encounter (statuses as of 06/16/2022) [facility]* Problem Noted [...] of this encounter (statuses as of 06/17/2022) [facility]* Problem Noted [...] of this encounter (statuses as of 06/22/2022) [facility]* Problem Noted [...] of this encounter (statuses as of 06/23/2022) [facility]* Problem Noted [...] of this encounter (statuses as of 06/30/2022) [facility]* Problem Noted [...] of this encounter (statuses as of 07/04/2022) [facility]* Problem Noted [...] of this encounter (statuses as of 07/08/2022) [facility]* Problem Noted [...] of this encounter (statuses as of 08/07/2022) [facility]* Problem Noted [...] of this encounter (statuses as of 11/24/2022) [facility]* Problem Noted [...] of this encounter (statuses as of 12/05/2022) [facility]* Problem Noted [...] of this encounter (statuses as of 12/11/2022) [facility]* Problem Noted [...] of this encounter (statuses as of 01/09/2023) [facility]* Problem Noted [...] of this encounter (statuses as of 02/02/2023) [facility]* Problem Noted [...] of this encounter (statuses as of 02/03/2023) [facility]* Problem Noted [...] of this encounter (statuses as of 02/19/2023) [facility]* Problem Noted [...] of this encounter (statuses as of 02/28/2023) [facility] Narrative* Problem Noted [...] this encounter (statuses as of 03/26/2023) [facility] Diagnosis Encounter for screening mammogram for breast cancer [facility]* Diagnosis Menopausal and perimenopausal disorder- Primary Unspecified menopausal and postmenopausal disorder documented in this encounter [facility] note* Diagnosis Postablative hypothyroidism- Primary Other postablative hypothyroidism documented in this encounter [facility] note* Diagnosis Hypothyroidism, acquired- Primary Unspecified hypothyroidism documented in this encounter [facility] note* Diagnosis Anxiety with depression- Primary documented in this encounter [facility] note* Diagnosis Impaired glucose tolerance Impaired glucose tolerance test documented in this encounter [facility] note* Diagnosis Onset Date Resolution Status Pre-diabetes acute 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 [facility] Work Phone: Evaluation note* Diagnosis Attention deficit hyperactivity disorder (ADHD), combined type- Primary Anxiety with depression Postablative hypothyroidism Other postablative hypothyroidism documented in this encounter [facility] note* Diagnosis Onset Date Resolution Status Dominguez's cyst of knee acute Left knee pain acute [facility] Work Phone: Evaluation note* Diagnosis Hypothyroidism, acquired Unspecified hypothyroidism documented in this encounter [facility] note* Diagnosis Menopausal and perimenopausal disorder- Primary Unspecified menopausal and postmenopausal disorder documented in this encounter [facility] note* Diagnosis Encounter for gynecological examination (general) (routine) without abnormal findings- Primary Encounter for screening mammogram for breast cancer Obesity, Class II, BMI 35-39.9 Obesity, unspecified documented in this encounter [facility] note* Diagnosis Hypothyroidism, acquired- Primary Unspecified hypothyroidism documented in this encounter [facility] note* Diagnosis LLQ pain- Primary Abdominal pain, [...] quadrant abdominal pain documented in this encounter [facility] note* Diagnosis Renal cyst- Primary Unspecified congenital cystic kidney disease Pelvic pain documented in this encounter [facility] note* Diagnosis Left lower quadrant abdominal pain documented in this encounter [facility] note* Diagnosis Pelvic pain [facility]* Diagnosis Thickened endometrium- Primary Nonspecific (abnormal) findings on radiological and other examination of genitourinary organs documented in this encounter [facility]* Diagnosis Menopausal and perimenopausal disorder- Primary Unspecified menopausal and postmenopausal disorder documented in this encounter [facility]* Diagnosis Attention deficit hyperactivity disorder (ADHD), combined type documented in this encounter [facility]* Diagnosis Onset Date Resolution Status Dominguez's cyst of knee acute Left knee pain acute Low back pain acute [facility] Work Phone: Evaluation note* Diagnosis Voice hoarseness- Primary Dysphonia documented in this encounter [facility] note* Diagnosis Menopausal and perimenopausal disorder- Primary Unspecified menopausal and postmenopausal disorder Mood change Unspecified episodic mood disorder [id number] rapid metabolizer (HCC) Not currently working due to disabled status due to hormone deficiency documented [facility] encounter [facility]* Diagnosis Screening for colon cancer Special screening for malignant neoplasms, colon documented in this encounter [facility] note* Diagnosis Symptomatic menopausal or female climacteric states- Primary Mood change Unspecified episodic mood disorder Edema, unspecified type [id number] rapid metabolizer (HCC) Not currently working due to disabled status due to hormone deficiency documented [facility] this encounter [facility]* Diagnosis Symptomatic menopausal or female climacteric states- Primary documented in this encounter [facility]* Diagnosis Fatigue, unspecified type- Primary ANDRESSA (obstructive sleep apnea) Obstructive sleep apnea (adult) (pediatric) Postablative hypothyroidism Other postablative hypothyroidism Impaired glucose tolerance Impaired glucose tolerance test Hyperglycemia Other abnormal glucose Tobacco use Tobacco use disorder documented in this encounter [facility] note* Diagnosis Depression, unspecified depression type- Primary Fatigue, unspecified type documented in this encounter [facility] note* Diagnosis Tonsillitis- Primary Acute tonsillitis [facility] this [facility]* Diagnosis Pharyngitis, unspecified etiology- Primary Fatigue, unspecified type Hair loss Alopecia, unspecified documented in this encounter [facility] noteNo assessment information availableWCleveland [facility] Work Phone: Evaluation note* Diagnosis Leukocytosis, unspecified type- Primary documented in this encounter [facility] note* Diagnosis Symptomatic menopausal or female climacteric states- Primary [facility] Hypothyroidism, acquired- Primary Unspecified hypothyroidism Screening for lung cancer ANDRESSA (obstructive sleep apnea) Obstructive sleep apnea (adult) (pediatric) Postablative hypothyroidism Other postablative hypothyroidism [facility] Diagnosis Nocturnal oxygen desaturation- Primary Idiopathic sleep related nonobstructive alveolar hypoventilation ANDRESSA (obstructive sleep apnea) Obstructive sleep apnea (adult) (pediatric) Upper airway resistance syndrome Other organic sleep disorders [facility]* Diagnosis Hypothyroidism, acquired Unspecified hypothyroidism [facility] this [facility]* Diagnosis Symptomatic menopausal or female climacteric states [id number] rapid metabolizer (HCC) [facility]* Diagnosis Encounter for screening mammogram for breast cancer [facility]* Diagnosis Symptomatic menopausal or female climacteric states- Primary [id number] rapid metabolizer (HCC) Heterozygous factor V Leiden mutation (HCC) Primary hypercoagulable state Not currently working due to disabled status due to hormone deficiency [facility] Diagnosis Vitamin D deficiency- Primary Unspecified vitamin D deficiency Burning sensation of skin [facility]* Diagnosis Elevated liver enzymes- Primary Other nonspecific abnormal serum enzyme levels Vitamin D deficiency Unspecified vitamin D deficiency Burning sensation of skin ANDRESSA (obstructive sleep apnea) Obstructive sleep apnea (adult) (pediatric) Nocturnal oxygen desaturation Idiopathic sleep related nonobstructive alveolar hypoventilation [facility]* Diagnosis ANDRESSA (obstructive sleep apnea)- Primary Obstructive sleep apnea (adult) (pediatric) [facility]* Diagnosis Elevated liver enzymes Other nonspecific abnormal serum enzyme levels [facility] Diagnosis Edema, unspecified type- Primary Nocturnal oxygen desaturation Idiopathic sleep related nonobstructive alveolar hypoventilation ANDRESSA (obstructive sleep apnea) Obstructive sleep apnea (adult) (pediatric) Chronic fatigue syndrome with fibromyalgia CYP2B6 intermediate metabolizer (HCC) [id number] rapid metabolizer (HCC) UGT1A1 intermediate metabolizer (HCC) Fatigue, unspecified type Arnold-Chiari deformity (HCC) Spina bifida with hydrocephalus, unspecified region Paresthesia Disturbance of skin sensation Vitamin D deficiency Unspecified vitamin D deficiency Tobacco use Tobacco use disorder [facility] this [facility]* Diagnosis Prediabetes- Primary Other abnormal glucose Vitamin D deficiency Unspecified vitamin D deficiency Hormone deficiency Other specified endocrine disorders Postablative hypothyroidism Other postablative hypothyroidism [facility]* Diagnosis Symptomatic menopausal or female climacteric states [id number] rapid metabolizer (HCC) documented [facility] encounter [facility]* Diagnosis Encounter for screening for lung cancer- Primary Tobacco use Tobacco use disorder [facility]* Diagnosis Umbilical hernia without obstruction and without gangrene- Primary [facility] this [facility]* Diagnosis Fatigue, unspecified type- Primary [facility] this [facility]* Diagnosis Suprapubic discomfort- Primary Abdominal pain, other specified site Edema, unspecified type Umbilical hernia without obstruction or gangrene Umbilical hernia without mention of obstruction or gangrene [facility] this [facility]* Diagnosis Ventral hernia without obstruction or gangrene- Primary Ventral hernia, unspecified, without mention of obstruction or gangrene [facility] this [facility]* Diagnosis Suprapubic discomfort Abdominal pain, other specified site Ventral hernia without obstruction or gangrene Ventral hernia, unspecified, without mention of obstruction or gangrene [facility] this [facility]* Diagnosis PCO (polycystic ovaries)- Primary Polycystic ovaries Prediabetes Other abnormal glucose Fatigue, unspecified type Controlled type 2 diabetes mellitus without complication, without long-term current use of insulin (HCC) Ventral hernia without obstruction or gangrene Ventral hernia, unspecified, without mention of obstruction or gangrene [facility] Diagnosis Microscopic hematuria- Primary Ventral hernia without obstruction or gangrene Ventral hernia, unspecified, without mention of obstruction or gangrene [facility]* Diagnosis Symptomatic menopausal or female climacteric states- Primary Myalgia Mylagia and myositis, unspecified Autonomic dysfunction Unspecified disorder of autonomic nervous system Muscle weakness Muscle weakness (generalized) Ventral hernia without obstruction or gangrene Ventral hernia, unspecified, without mention of obstruction or gangrene [facility] Diagnosis Microscopic hematuria Ventral hernia without obstruction or gangrene Ventral hernia, unspecified, without mention of obstruction or gangrene [facility] Diagnosis Postablative hypothyroidism- Primary Other postablative hypothyroidism Controlled type 2 diabetes mellitus without complication, without long-term current use of insulin (HCC) Ventral hernia without obstruction or gangrene Ventral hernia, unspecified, without mention of obstruction or gangrene [facility] Diagnosis Encounter for gynecological examination (general) (routine) without abnormal findings- Primary Screening for cervical cancer Screening for malignant neoplasm of the cervix Encounter for screening for human papillomavirus (HPV) Special screening examination for human papillomavirus (HPV) Encounter for screening mammogram for breast cancer [facility] Diagnosis Hormone deficiency- Primary Other specified endocrine disorders Burning sensation of mouth Other and unspecified diseases of the oral soft tissues Burning sensation of skin Sleep difficulties Sleep disturbance, unspecified Myalgia Mylagia and myositis, unspecified Simple chronic bronchitis (HCC) Simple chronic bronchitis ANDRESSA (obstructive sleep apnea) Obstructive sleep apnea (adult) (pediatric) GERD without esophagitis Esophageal reflux Postablative hypothyroidism Other postablative hypothyroidism Controlled type 2 diabetes mellitus without complication, unspecified whether fdc insulin use (HCC) [facility] Diagnosis Menopausal and perimenopausal disorder- Primary Unspecified menopausal and postmenopausal disorder Burning sensation of mouth Other and unspecified diseases of the oral soft tissues Dry skin Other specified disease of sebaceous glands Hormonal disorder Unspecified endocrine disorder Fatigue, unspecified type SVT (supraventricular tachycardia) ([facility]) Other specified cardiac dysrhythmias [facility] this [facility]* Diagnosis Foot lesion- Primary Unspecified disorder of skin and subcutaneous tissue Onychomycosis Dermatophytosis of nail [facility] this [facility]* Diagnosis NO SHOW- Primary 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 Diagnosis Monoallelic mutation of FLNB gene- Primary Family history of colon cancer Family history of malignant neoplasm of gastrointestinal tract Premature loss of deciduous teeth Family history of breast cancer Family history of malignant neoplasm of breast Premature menopause documented in this encounter [facility] Work Phone: Evaluation note* Diagnosis Hypothyroidism, acquired Unspecified hypothyroidism [facility]* Diagnosis Iron deficiency anemia, unspecified iron deficiency anemia type- Primary Heavy metal exposure Contact with and (suspected) exposure to other hazardous metals [facility] this [facility]* Diagnosis Neoplasm of lung- Primary Neoplasm of unspecified nature of respiratory system documented in this encounter [facility] note* Diagnosis Abnormal CT scan of lung- Primary Other nonspecific abnormal finding of lung field Neoplasm of lung Neoplasm of unspecified nature of respiratory system [facility] this [facility]* Diagnosis NO SHOW- Primary documented [facility]* Diagnosis Bacterial pneumonia- Primary Bacterial pneumonia, unspecified Lung mass Swelling, mass, or lump in chest documented [facility]* Diagnosis Gastroesophageal reflux disease without esophagitis- Primary Esophageal reflux Chest wall pain Painful respiration Bacterial pneumonia Bacterial pneumonia, unspecified Lung mass Swelling, mass, or lump in chest Abnormal CT scan of lung Other nonspecific abnormal finding of lung field documented [facility]* Diagnosis Symptomatic menopausal or female climacteric states- Primary Autonomic dysfunction Unspecified disorder of autonomic nervous system Heterozygous factor V Leiden mutation ([facility]) Primary hypercoagulable state Hormonal disorder Unspecified endocrine disorder documented in this encounter [facility] note* Diagnosis Premature menopause- Primary Family history of colon cancer Family history of malignant neoplasm of gastrointestinal tract Premature loss of deciduous teeth Family history of breast cancer Family history of malignant neoplasm of breast documented in this encounter [facility] Work Phone: Evaluation note* Diagnosis Impaired glucose tolerance Impaired glucose tolerance test [facility] Diagnosis COVID-19- Primary Arnold-Chiari deformity (HCC) Spina bifida with hydrocephalus, unspecified region [id number] rapid metabolizer (HCC) Heterozygous factor V Leiden mutation (HCC) Primary hypercoagulable state SVT (supraventricular tachycardia) ([facility]) Other specified cardiac dysrhythmias Simple chronic bronchitis (HCC) Simple chronic bronchitis Controlled type 2 diabetes mellitus without complication, unspecified whether fdc insulin use ([facility]) Chronic fatigue syndrome with fibromyalgia Autonomic dysfunction Unspecified disorder of autonomic nervous system ANDRESSA (obstructive sleep apnea) Obstructive sleep apnea (adult) (pediatric) Upper airway resistance syndrome Other organic sleep disorders Gastroesophageal reflux disease without esophagitis Esophageal reflux Anxiety Anxiety state, unspecified Lung nodule Solitary pulmonary nodule [facility] Diagnosis Hypoxia- Primary Hypoxemia [facility] this [facility]* Diagnosis SOB (shortness of breath)- Primary Shortness of breath Edema, unspecified type Gastroesophageal reflux disease without esophagitis Esophageal reflux Irritable bowel syndrome without diarrhea Irritable bowel syndrome [facility] this [facility]* Diagnosis Controlled type 2 diabetes mellitus without complication, unspecified whether salvage determiner insulin use (HCC)- Primary documented [facility] this [facility]* Diagnosis Hypoglycemia- Primary Hypoglycemia, unspecified Controlled type 2 diabetes mellitus without complication, unspecified whether salvage determiner insulin use (HCC) [facility] this [facility]* Diagnosis ANDRESSA (obstructive sleep apnea)- Primary Obstructive sleep apnea (adult) (pediatric) Monocytosis Monocytosis (symptomatic) Other elevated white blood cell (WBC) count Fatty liver Other chronic nonalcoholic liver disease Controlled type 2 diabetes mellitus without complication, unspecified whether salvage determiner insulin use (HCC) Hypoglycemia Hypoglycemia, unspecified Polycythemia Polycythemia vera documented [facility] this [facility]* Diagnosis Fatigue, unspecified type- Primary Fatty liver Other chronic nonalcoholic liver disease Portal hypertensive gastropathy (HCC) (HCC) Other specified disorder of stomach and duodenum Gastroesophageal reflux disease with esophagitis without hemorrhage Estrogen deficiency Other ovarian failure ANDRESSA (obstructive sleep apnea) Obstructive sleep apnea (adult) (pediatric) SVT (supraventricular tachycardia) (HCC) Other specified cardiac dysrhythmias Palpitations Lung nodule Solitary pulmonary nodule Impaired glucose tolerance Impaired glucose tolerance test Controlled type 2 diabetes mellitus without complication, unspecified whether fdc insulin use (HCC) Hypoglycemia Hypoglycemia, unspecified Other elevated white blood cell (WBC) count Monocytosis Monocytosis (symptomatic) BMI 39.0-39.9,adult Body Mass Index 39.0-39.9, adult Postablative hypothyroidism Other postablative hypothyroidism documented [facility] this [facility]* Diagnosis Postablative hypothyroidism- Primary Other postablative hypothyroidism documented [facility] this [facility]* Diagnosis SVT (supraventricular tachycardia) (HCC)- Primary Other specified cardiac dysrhythmias Blood pressure elevated without history of HTN Elevated blood pressure reading without diagnosis of hypertension ANDRESSA (obstructive sleep apnea) Obstructive sleep apnea (adult) (pediatric) Portal hypertensive gastropathy (HCC) (HCC) Other specified disorder of stomach and duodenum Postablative hypothyroidism Other postablative hypothyroidism Controlled type 2 diabetes mellitus without complication, unspecified whether fdc insulin use (HCC) PTSD (post-traumatic stress disorder) Posttraumatic stress disorder Estrogen deficiency Other ovarian failure hx of low vitamin D Unspecified vitamin D deficiency Burning sensation of mouth Other and unspecified diseases of the oral soft tissues Encounter for screening mammogram for malignant neoplasm of breast Other screening mammogram [facility] Diagnosis Burning sensation of skin- Primary SVT (supraventricular tachycardia) (HCC) Other specified cardiac dysrhythmias Simple chronic bronchitis (HCC) Simple chronic bronchitis ANDRESSA (obstructive sleep apnea) Obstructive sleep apnea (adult) (pediatric) Portal hypertensive gastropathy (HCC) (HCC) Other specified disorder of stomach and duodenum Postablative hypothyroidism Other postablative hypothyroidism Hormone deficiency Other specified endocrine disorders Obesity, Class II, BMI 35-39.9 Obesity, unspecified GERD without esophagitis Esophageal reflux H. pylori infection Helicobacter pylori (H. pylori) Arthralgia, unspecified joint documented [facility] this [facility]* Diagnosis Menopausal and perimenopausal disorder- Primary Unspecified menopausal and postmenopausal disorder Hormonal disorder Unspecified endocrine disorder Fatty liver Other chronic nonalcoholic liver disease SVT (supraventricular tachycardia) (HCC) Other specified cardiac dysrhythmias [facility] this [facility]* Diagnosis Bacterial pneumonia- Primary Bacterial pneumonia, unspecified Flushing Anxiety Anxiety state, unspecified SVT (supraventricular tachycardia) (HCC) Other specified cardiac dysrhythmias Impaired glucose tolerance Impaired glucose tolerance test [facility]* Diagnosis Hypoglycemia Hypoglycemia, unspecified Controlled type 2 diabetes mellitus without complication, unspecified whether salvage determiner insulin use (HCC) [facility] this [facility]* Diagnosis Hypoglycemia- Primary Hypoglycemia, unspecified Impaired glucose tolerance Impaired glucose tolerance test GERD without esophagitis Esophageal reflux H. pylori infection Helicobacter pylori (H. pylori) Postablative hypothyroidism Other postablative hypothyroidism [facility] Diagnosis Polycythemia- Primary Polycythemia vera Leukocytosis, unspecified type Elevated liver enzymes Other nonspecific abnormal serum enzyme levels [facility]* Diagnosis Gastroesophageal reflux disease without esophagitis- Primary Esophageal reflux Portal hypertensive gastropathy (HCC) Other specified disorder of stomach and duodenum [facility] Diagnosis Fatty liver Other chronic nonalcoholic liver disease Portal hypertensive gastropathy (HCC) Other specified disorder of stomach and duodenum [facility] Diagnosis Elevated liver enzymes- Primary Other nonspecific abnormal serum enzyme levels GERD without esophagitis Esophageal reflux H. pylori infection Helicobacter pylori (H. pylori) [facility] this [facility]* Diagnosis Disorder of liver- Primary Unspecified disorder of liver COPD Obstructive chronic bronchitis without exacerbation [facility] this [facility]* Diagnosis Prediabetes- Primary Other abnormal glucose [facility] this [facility]* Diagnosis Gastroesophageal reflux disease, unspecified whether esophagitis present- Primary Portal hypertension (Multi) Portal hypertension Esophageal dysphagia Dysphagia, pharyngoesophageal phase Family hx of colon cancer Family history of malignant neoplasm of gastrointestinal tract Left upper quadrant abdominal pain Pain of upper abdomen Chronic constipation Unspecified constipation documented in this encounter [facility] Work Phone: Evaluation note* Diagnosis Menopausal and perimenopausal disorder- Primary Unspecified menopausal and postmenopausal disorder Fatty liver Other chronic nonalcoholic liver disease Elevated hemoglobin Other hemoglobinopathies Hot flashes Symptomatic menopausal or female climacteric states Hormonal disorder Unspecified endocrine disorder [facility] this [facility]* Diagnosis Menopausal and perimenopausal disorder Unspecified menopausal and postmenopausal disorder [facility] this [facility]* Diagnosis Impaired glucose tolerance- Primary Impaired glucose tolerance test Palpitations GERD without esophagitis Esophageal reflux Encounter for screening mammogram for malignant neoplasm of breast Other screening mammogram Postablative hypothyroidism Other postablative hypothyroidism Estrogen deficiency Other ovarian failure Hormone deficiency Other specified endocrine disorders Obesity, Class II, BMI 35-39.9 Obesity, unspecified Myalgia Mylagia and myositis, unspecified [facility] Additional Instructions Plenty of fluids and rest. Increase your diet slowly as tolerated. Tylenol for fever and body aches and Motrin. Zofran as needed for nausea. If the diarrhea is not improving in 2 days start Imodium. Return if you are feeling worse or unable to keep fluids down.[facility] Work Phone: Hospital Discharge instructions Additional Instructions Your workup revealed no abnormal heart rhythm or clinically significant lab value changes that could cause your palpitations. As he only knew medication is the recent antibiotics from the regional education coordinator this could be a cause for your symptoms. Please discuss with them about stopping this medication and return to the ER should you have any further [facility]WC[facility] Work Phone: Reason for referral (narrative)* Diagnostic Procedure Only (Routine) - Pending Review Specialty Diagnoses / Procedures Referred By Precious courtney Referred To Contact [facility] Diagnoses Encounter for screening mammogram for breast cancer Procedures BELKIS SCREENING SCREENING MAMMOGRAPHY BI 2-VIEW BREAST INC CAD Freddy Nvaa MD [facility] [place] [address] [facility] [address] [place] [address] Referral ID Status Reason Start Date Expiration Date Visits Requested Visits Authorized [id number] Pending Review Auto-Generat ed Referral 07/16/2021 08/15/2022 1 1 [facility] for referral (narrative)* Diagnostic Procedure Only (Routine) - Pending Review Specialty Diagnoses / Procedures Referred By Precious courtney Referred To Contact [facility] Diagnoses Encounter for screening mammogram for breast cancer Procedures [facility] SCREENING SCREENING MAMMOGRAPHY BI 2-VIEW BREAST INC CAD Ofe Garcia APRN.CNP [address] [place] [address] [facility] [address] [place] [id number] Referral ID Status Reason Start Date Expiration Date Visits Requested Visits Authorized [id number] Pending Review Auto-Generat ed Referral 12/23/2021 01/22/2023 1 1 [facility] for referral (narrative)* Diagnostic Procedure Only (Routine) - Pending Review Specialty Diagnoses / Procedures Referred By Precious t Referred To Contact [facility] Diagnoses Pelvic pain Procedures US FEMALE PELVIS TRANSVAG US TRANSVAGINAL Freddy Nava MD [address] [place] [address] [facility] Referral ID Status Reason Start Date Expiration Date Visits Requested Visits Authorized [id number] Pending Review Auto-Generat ed Referral 01/01/2022 01/31/2023 1 1 * Diagnostic Procedure Only (Routine) - Pending Review Specialty Diagnoses / Procedures Referred By Contac t Referred To Contact [facility] Diagnoses Renal cyst Procedures US KIDNEY/BLADDER US RETROPERITONEAL REAL TIME W/IMAGE COMPLETE Freddy Nava MD [address] [place] [address] [facility] Referral ID Status Reason Start Date Expiration Date Visits Requested Visits Authorized [id number] Pending Review Auto-Generat ed Referral 07/01/2022 01/31/2023 1 1 [facility] for referral (narrative)* Diagnostic Procedure Only (Routine) - Closed Specialty Diagnoses / Procedures Referred By Contac t Referred To Contact [facility] Diagnoses Pelvic pain Procedures US FEMALE PELVIS TRANSVAG US TRANSVAGINAL Freddy Nava MD [address] [place] [address] [facility] Referral ID Status Reason Start Date Expiration Date V isits Requested Visits Authorized [id number] Closed Auto-Generate d Referral 01/01/2022 01/31/2023 1 1 [facility] for referral (narrative)* Outpatient Procedure (Routine) - Pending Review Specialty Diagnoses / Procedures Referred By Contac t Referred To Contact [facility] Diagnoses Screening for colon cancer Procedures COLONOSCOPY SCREENING COLONOSCOPY FLX DX W/COLLJ SPEC WHEN PFRMD Freddy Nava MD [address] [place] [address] [facility] [address] [place] [address] Referral ID Status Reason Start Date Expiration Date Visits Requested Visits Authorized [id number] Pending Review Auto-Generat ed Referral 03/04/2022 03/04/2023 1 1 [facility] for referral (narrative)* Diagnostic Procedure Only (Routine) - Closed Specialty Diagnoses / Procedures Referred By Precious courtney Referred To Contact [facility] Diagnoses Encounter for screening mammogram for breast cancer Procedures BELKIS SCREENING SCREENING MAMMOGRAPHY BI 2-[place] [address] [place] [address] [facility] [address] [place] [address] Referral ID Status Reason Start Date Expiration Date V isits Requested Visits Authorized [id number] Closed Auto-Generate d Referral 07/16/2021 08/15/2022 1 1 [facility] for referral (narrative)* Diagnostic Procedure Only (Routine) - Authorized Specialty Diagnoses / Procedures Referred By Precious courtney Referred To Contact [facility] Diagnoses Elevated liver enzymes Procedures US ABD RIGHT UPPER QUADRANT US ABDOMINAL REAL TIME W/IMAGE LIMITED Freddy Nava MD [address] [place] [address] [place] [address] Referral ID Status Reason Start Date Expiration Date Visits Requested Visits Authorized [id number] Authorized Auto-Generat ed Referral 06/18/2023 07/17/2024 1 1 [facility] for referral (narrative)* Diagnostic Procedure Only (Routine) - Closed Specialty Diagnoses / Procedures Referred By Precious courtney Referred To Contact [facility] Diagnoses Elevated liver enzymes Procedures US ABD RIGHT UPPER QUADRANT US ABDOMINAL REAL TIME W/IMAGE LIMITED Freddy Nava MD [address] [place] [address] [place] [address] Referral ID Status Reason Start Date Expiration Date V isits Requested Visits Authorized [id number] Closed Auto-Generate d Referral 06/18/2023 07/17/2024 1 1 [facility] for referral (narrative)* Diagnostic Procedure Only (Routine) - Pending Review Specialty Diagnoses / Procedures Referred By Precious t Referred To Contact [facility] Diagnoses Suprapubic discomfort Procedures US FEMALE PELVIS TRANSVAG US TRANSVAGINAL Freddy Nava MD [address] [place] [address] [place] [address] Referral ID Status Reason Start Date Expiration Date Visits Requested Visits Authorized [id number] Pending Review Auto-Generat ed Referral 09/27/2023 10/26/2024 1 1 [facility] for referral (narrative)* Diagnostic Procedure Only (Routine) - New Request Specialty Diagnoses / Procedures Referred By Precious courtney Referred To Contact [facility] Diagnoses Encounter for gynecological examination (general) (routine) without abnormal findings Encounter for screening mammogram for breast cancer Procedures BELKIS SCREENING W LANDRY SCREENING DIGITAL BREAST TOMOSYNTHESIS BI SCREENING MAMMOGRAPHY BI 2-VIEW BREAST INC CAD Ofe Garcia, PAPER CONE MAKER.NARCOTICS AND VICE DETECTIVE [address] [facility] [place] [address] [facility] [address] [place] [address] Referral ID Status Reason Start Date Expiration Date Visits Requested Visits Authorized [id number] New Request Auto-Generat ed Referral 11/29/2023 12/28/2024 1 1 [facility] for referral (narrative)* Diagnostic Procedure Only (Urgent) - New Request Specialty Diagnoses / Procedures Referred By Precious t Referred To Contact [facility] Diagnoses Neoplasm of lung Procedures NM PET/CT SKULL-THIGH INITIAL PET IMAGING CT ATTENUATION SKULL BASE MID-THIGH Yarelis Adkins PAPER CONE MAKER.NARCOTICS AND VICE DETECTIVE [address] [place] [address] [facility] [address] [place] [address] Referral ID Status Reason Start Date Expiration Date Visits Requested Visits Authorized [id number] New Request Auto-Generat ed Referral 02/26/2024 03/26/2025 1 1 [facility] for referral (narrative)No reason for referral information availableWCleveland [facility] Work Phone: Reason for visit Narrative* Diagnostic Procedure Only (Routine) - Closed Specialty Diagnoses / Procedures Referred By Precious courtney Referred To Contact [facility] Diagnoses Encounter for screening mammogram for breast cancer Procedures BELKIS SCREENING SCREENING MAMMOGRAPHY BI 2-VIEW BREAST INC CAD Freddy Nava MD [address] [place] [address] Br Imaging [address] [place] [address] Referral ID Status Reason Start Date Expiration Date V isits Requested Visits Authorized [id number] Closed Auto-Generate d Referral 07/16/2021 08/15/2022 1 1 [facility] for visit Narrative* Outpatient Procedure (Routine) - Pending Review Specialty Diagnoses / Procedures Referred By Precious courtney Referred To Contact Radiology / [facility] Diagnoses Liver US with spectral color doppler -- order in scanned docs Procedures US LIVER VASCULAR Jb Mccallum [address] [address] Phone: tel: fax: Radiology [address] [place] [address] Phone: tel: Referral ID Status Reason Start Date Expiration Date V isits Requested Visits Authorized [id number] Pending Review 09/08/2024 11/07/[address] [facility] Summary Purpose Family History No Family History [...] Family history of hypertensi on(V17.49, Z82.49) Status:Active Relationship Condition Age at Onset Recorded Date/T giancarlo father Coronary artery disease Unknown Hypertension Unknown Myocardial infarction 66 History of coronary artery bypass surgery Unknown Relationship Condition Age at Onset Recorded Date/T giancarlo father Coronary artery disease Unknown Hypertension Unknown Myocardial infarction 66 History of coronary artery bypass surgery Unknown Malignant neoplasm of colon Unknown Diabetes mellitus Unknown mother Cerebrovascular accident (CVA) Unknown sister Disorder of thyroid Unknown Advance Directives No Advanced Directives Records FoundDocuments on File Type Date Recorded 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 Advance Directive(s) 06/05/2015 8:15 AM Documents on File Type Date Recorded 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 Advance Directive(s) 06/05/2015 8:15 AM Advance Directive Response Recorded Date/ Time Advance Directives No December 3:48pm Living Will No October 07, 2021 10:06am Power of Senior Litigation Paralegal No October 07 10:06am Advance Directive Response Recorded Date/ Time Advance Directives No December 3:48pm Living Will No December 12 8:49pm Power of Senior Litigation Paralegal No December 12 8:49pm Advance Directive Response Recorded Date/ Time Advance Directives No December 3:48pm Living Will No February 15 2:13am Power of Senior Litigation Paralegal No February 15, 2022 2:13am Advance Directive Response Recorded Date/ Time Advance Directives No December 2:48pm Living Will No June 19, 023 11:39pm Power of Senior Litigation Paralegal No June 19, 2022 11:39pm Advance Directive Response Recorded Date/ Time Advance Directives No December 3:48pm Living Will No August 16, 2022 3:15pm Power of Senior Litigation Paralegal No August 16 3:15pm Advance Directive Response Recorded Date/ Time Advance Directives No December 2:48pm Living Will No May 27 11:20pm Power of Senior Litigation Paralegal No May 27, 2023 11:20pm Advance Directive Response Recorded Date/ Time Living Will No February 22 11:13pm Power of Senior Litigation Paralegal No February 23, 2024 11:13pm Living Will No May 12 5:11pm Power of Senior Litigation Paralegal No May 12, 2024 5:11pm Living Will No May 31 3:12am Power of Senior Litigation Paralegal No May 31, 2024 3:12am Living Will No June 14, 2 025 11:35am Power of Senior Litigation Paralegal No June 14, 2024 11:35am Living Will No June 13, 2 025 11:47pm Power of Senior Litigation Paralegal No June 13, 2024 11:47pm Living Will No July 04, 2024 12:30am Power of Senior Litigation Paralegal No July 04 12:30am Advance Directives No December 3:48pm Advance Directive Response Recorded Date/ Time Living Will No February 22 11:13pm Power of Senior Litigation Paralegal No February 23, 2024 11:13pm Living Will No May 12 5:11pm Power of Senior Litigation Paralegal No May 12, 2024 5:11pm Living Will No May 31 3:12am Power of Senior Litigation Paralegal No May 31, 2024 3:12am Living Will No June 14, 2 025 11:35am Power of Senior Litigation Paralegal No June 14, 2024 11:35am Living Will No June 13, 2 025 11:47pm Power of Senior Litigation Paralegal No June 13, 2024 11:47pm Living Will No July 04, 2024 12:30am Power of Senior Litigation Paralegal No July 04 12:30am Living Will No July 06, 2024 11:07pm Power of Senior Litigation Paralegal No July 06 11:07pm Advance Directives No December 3:48pm Advance Directive Response Recorded Date/ Time Living Will No May 12 5:11pm Do you have a Healthcare Power of Senior Litigation Paralegal? No May 12, 2024 5:11pm Living Will No May 31 3:12am Do you have a Healthcare Power of Senior Litigation Paralegal? No May 31, 2024 3:12am Living Will No June 14 11:35am Do you have a Healthcare Power of Senior Litigation Paralegal? No June 14, 2024 11:35am Living Will No June 13 11:47pm Do you have a Healthcare Power of Senior Litigation Paralegal? No June 13, 2024 11:47pm Living Will No July 04, 2024 12:30am Do you have a Healthcare Power of Senior Litigation Paralegal? No July 04, 2024 12:30am Living Will No July 06, 2024 11:07pm Do you have a Healthcare Power of Senior Litigation Paralegal? No July 06, 2024 11:07pm Advance Directives No December 3:48pm Advance Directive Response Recorded Date/ Time Advance Directives No December 3:48pm Chief Complaint and Reason for Visit Chief Complaint F/U, MISSED LAST JESSE OINTMENT PALPITATIONS Reason for Visit Pre-diabetes Acquired hypothyroidism Chief Complaint PALPITATIONS LEFT KNEE xray EDEMA Reason for Visit Dominguez's cyst of knee Left knee pain Chief Complaint LEFT KNEE xray EDEMA LUMBAR SPINE xray Asthma Reason for Visit Dominguez's cyst of knee Left knee pain Low back pain Chief Complaint THROAT PAIN Chief Complaint THROAT PAIN CBC,CMP, FERRITIN, TSH, FTH4, T3FREE GENERAL ILLNESS Chief Complaint GENERAL Chief Complaint Admit Date LUNG CANCER March 07, 2024 8:25am ER FU LUNG MASS March 14, 2024 10:52am Acid reflux March 31, 2024 1 2:59pm RUL NODULE March 31, 2024 7 :03pm MYXOID CYST R HAND May 05, 2024 1 0:19am 2 M FU May 09, 2024 1 :23pm HEART PALPITATIONS & CRAMPING IN LOWER B ACK May 12, 2024 3:44pm general illness May 31, 2024 1 :41am fatigue June 13, 2024 8:36pm CO2 LEVELS HIGH June 20, 2024 2:52pm Test Result June 27, 2024 2:27 pm HEART PALPITATIONS July 03, 2024 11: 50pm Reason for Visit Admit Date Abnormal chest CT March 14, 2024 10:52am GERD (gastroesophageal reflux disease) N ovember 2023 10:52am Nicotine dependence, cigarettes, uncompl icated March 14, 2024 10:52am GERD (gastroesophageal reflux disease) D ecember 2023 12:59pm Mucous cyst of digit of right hand Ezekiel ry 2024 10:19am Abnormal chest CT May 09, 2024 1 :23pm GERD (gastroesophageal reflux disease) J anuary 2024 1:23pm Nicotine dependence, cigarettes, uncompl icated May 09, 2024 1:23pm GERD (gastroesophageal reflux disease) F ebruary 2024 6:36am Abnormal chest CT June 20, 2024 2:52pm Sleep apnea June 20, 2024 2:52pm GERD (gastroesophageal reflux disease) F ebruary 2024 2:52pm Nicotine dependence, cigarettes, uncompl icated June 20, 2024 2:52pm H. pylori infection June 27, 2024 2:27 pm GERD (gastroesophageal reflux disease) M arch 2024 2:27pm Chief Complaint Admit Date ER FU LUNG MASS March 14, 2024 10:52am Acid reflux March 31, 2024 1 2:59pm RUL NODULE March 31, 2024 7 :03pm MYXOID CYST R HAND May 05, 2024 1 0:19am 2 M FU May 09, 2024 1 :23pm HEART PALPITATIONS & CRAMPING IN LOWER B ACK May 12, 2024 3:44pm general illness May 31, 2024 1 :41am fatigue June 13, 2024 8:36pm CO2 LEVELS HIGH June 20, 2024 2:52pm Test Result June 27, 2024 2:27 pm HEART PALPITATIONS July 03, 2024 11: 50pm FATTY LIVER July 05, 2024 7:2 3am general illness July 06, 2024 8:3 8pm Chief Complaint Admit Date ER FU LUNG MASS March 14, 2024 10:52am Acid reflux March 31, 2024 1 2:59pm RUL NODULE March 31, 2024 7 :03pm MYXOID CYST R HAND May 05, 2024 1 0:19am 2 M FU May 09, 2024 1 :23pm HEART PALPITATIONS & CRAMPING IN LOWER B ACK May 12, 2024 3:44pm general illness May 31, 2024 1 :41am fatigue June 13, 2024 8:36pm CO2 LEVELS HIGH June 20, 2024 2:52pm Test Result June 27, 2024 2:27 pm HEART PALPITATIONS July 03, 2024 11: 50pm FATTY LIVER July 05, 2024 7:2 3am general illness July 06, 2024 8:3 8pm MEDICATION ISSUES July 07, 2024 10: 41am RUL & LLL nodule follow up July 07, 2 025 1:05pm Reason for Visit Admit Date Abnormal chest CT March 14, 2024 10:52am GERD (gastroesophageal reflux disease) N ovember 2023 10:52am Nicotine dependence, cigarettes, uncompl icated March 14, 2024 10:52am GERD (gastroesophageal reflux disease) D ecember 2023 12:59pm Mucous cyst of digit of right hand Janua ry 2024 10:19am Abnormal chest CT May 09, 2024 1 :23pm GERD (gastroesophageal reflux disease) J anuary 2024 1:23pm Nicotine dependence, cigarettes, uncompl icated May 09, 2024 1:23pm GERD (gastroesophageal reflux disease) F ebruary 2024 6:36am Abnormal chest CT June 20, 2024 2:52pm Sleep apnea June 20, 2024 2:52pm GERD (gastroesophageal reflux disease) F ebruary 2024 2:52pm Nicotine dependence, cigarettes, uncompl icated June 20, 2024 2:52pm H. pylori infection June 27, 2024 2:27 pm GERD (gastroesophageal reflux disease) M arch 2024 2:27pm Fatty liver July 07, 2024 10: 41am H. pylori infection July 07, 2024 10: 41am Chief Complaint Admit Date Acid reflux March 31, 2024 1 2:59pm RUL NODULE March 31, 2024 7 :03pm MYXOID CYST R HAND May 05, 2024 1 0:19am 2 M FU May 09, 2024 1 :23pm HEART PALPITATIONS & CRAMPING IN LOWER B ACK May 12, 2024 3:44pm general illness May 31, 2024 1 :41am fatigue June 13, 2024 8:36pm CO2 LEVELS HIGH June 20, 2024 2:52pm Test Result June 27, 2024 2:27 pm HEART PALPITATIONS July 03, 2024 11: 50pm FATTY LIVER July 05, 2024 7:2 3am general illness July 06, 2024 8:3 8pm MEDICATION ISSUES July 07, 2024 10: 41am RUL & LLL nodule follow up July 07, 2 025 1:05pm Reason for Visit Admit Date GERD (gastroesophageal reflux disease) D ecember 2023 12:59pm Mucous cyst of digit of right hand Aprua 2024 10:19am Abnormal chest CT May 09, 2024 1 :23pm GERD (gastroesophageal reflux disease) J anuary 2024 1:23pm Nicotine dependence, cigarettes, uncompl icated May 09, 2024 1:23pm GERD (gastroesophageal reflux disease) F ebruary 2024 6:36am Abnormal chest CT June 20, 2024 2:52pm Sleep apnea June 20, 2024 2:52pm GERD (gastroesophageal reflux disease) F ebruary 2024 2:52pm Nicotine dependence, cigarettes, uncompl icated June 20, 2024 2:52pm H. pylori infection June 27, 2024 2:27 pm GERD (gastroesophageal reflux disease) M arch 2024 2:27pm Fatty liver July 07, 2024 10: 41am H. pylori infection July 07, 2024 10: 41am Chief Complaint Admit Date MYXOID CYST R HAND May 05, 2024 1 0:19am 2 M FU May 09, 2024 1 :23pm HEART PALPITATIONS & CRAMPING IN LOWER B ACK May 12, 2024 3:44pm general illness May 31, 2024 1 :41am fatigue June 13, 2024 8:36pm CO2 LEVELS HIGH June 20, 2024 2:52pm Test Result June 27, 2024 2:27 pm HEART PALPITATIONS July 03, 2024 11: 50pm FATTY LIVER July 05, 2024 7:2 3am general illness July 06, 2024 8:3 8pm MEDICATION ISSUES July 07, 2024 10: 41am RUL & LLL nodule follow up July 07, 2 025 1:05pm INT LAB ORDER August 02, 2024 3:02 pm RE-EST (SELF) August 02, 2024 3:06 pm Reason for Visit Admit Date Mucous cyst of digit of right hand Aprua ry 2024 10:19am Abnormal chest CT May 09, 2024 1 :23pm GERD (gastroesophageal reflux disease) J anuary 2024 1:23pm Nicotine dependence, cigarettes, uncompl icated May 09, 2024 1:23pm GERD (gastroesophageal reflux disease) F ebruary 2024 6:36am Abnormal chest CT June 20, 2024 2:52pm Sleep apnea June 20, 2024 2:52pm GERD (gastroesophageal reflux disease) F ebruary 2024 2:52pm Nicotine dependence, cigarettes, uncompl icated June 20, 2024 2:52pm H. pylori infection June 27, 2024 2:27 pm GERD (gastroesophageal reflux disease) M [facility] 2024 2:27pm Fatty liver July 07, 2024 10: 41am H. pylori infection July 07, 2024 10: 41am Abnormal chest CT August 02, 2024 3:06 pm Sinus tachycardia August 02, 2024 3:06 pm Chief Complaint Admit Date INT LAB ORDER August 02, 2024 3:02 pm RE-EST (SELF) August 02, 2024 3:06 pm Follow Up August 23, 2024 3:2 1pm 3 M FU November 22, 2024 2:49 pm Reason for Visit Admit Date Abnormal chest CT August 02, 2024 3:06 pm Sinus tachycardia August 02, 2024 3:06 pm H. pylori infection August 23, 2024 3:2 1pm Metabolic dysfunction-associ ated steatotic liver disease (MASLD) August 23, 2024 3:21pm Portal hypertensive gastropathy August 232024 3:21pm Abnormal chest CT November 22, 2024 2:49 pm Sleep apnea November 22, 2024 2:49 pm GERD (gastroesophageal reflux disease) J [facility] 2024 2:49pm Nicotine dependence, cigarettes, uncompl icated November 22, 2024 2:49pm Chief Complaint Admit Date INT LAB ORDER August 02, 2024 3:02 pm RE-EST (SELF) August 02, 2024 3:06 pm Follow Up August 23, 2024 3:2 1pm 3 M FU November 22, 2024 2:49 pm E ORDER November 23, 2024 1:28 pm 4 M FU November 27, 2024 2:5 0pm Reason for Visit Admit Date Abnormal chest CT August 02, 2024 3:06 pm Sinus tachycardia August 02, 2024 3:06 pm H. pylori infection August 23, 2024 3:2 1pm Metabolic dysfunction-associ ated steatotic liver disease (MASLD) August 23, 2024 3:21pm Portal hypertensive gastropathy August 232024 3:21pm Sleep apnea November 22, 2024 2:49 pm Solitary pulmonary nodule November 22 2:49pm GERD (gastroesophageal reflux disease) J hannah 2024 2:49pm Nicotine dependence, cigarettes, uncompl icated November 22, 2024 2:49pm Metabolic dysfunction-associ ated steatotic liver disease (MASLD) November 27, 2024 2:50pm Portal hypertensive gastropathy November 272024 2:50pm Chief Complaint Admit Date Follow Up August 23, 2024 3:2 1pm 3 M FU November 22, 2024 2:49 pm E ORDER November 23, 2024 1:28 pm 4 M FU November 27, 2024 2:5 0pm Reason for Visit Admit Date H. pylori infection August 23, 2024 3:2 1pm Metabolic dysfunction-associ ated steatotic liver disease (MASLD) August 23, 2024 3:21pm Portal hypertensive gastropathy August 232024 3:21pm Sleep apnea November 22, 2024 2:49 pm Solitary pulmonary nodule November 22 2:49pm GERD (gastroesophageal reflux disease) J [facility] 2024 2:49pm Nicotine dependence, cigarettes, uncompl icated November 22, 2024 2:49pm Metabolic dysfunction-associ ated steatotic liver disease (MASLD) November 27, 2024 2:50pm Portal hypertensive gastropathy November 272024 2:50pm Reason for Referral Specialty Diagnoses / Procedures Referred By Precious courtney Referred To Contact CT IMAGING Diagnoses Left lower quadrant abdominal pain Procedures CT ABD/PEL W IVCON CT ABD & PELVIS W/CONTRAST Freddy Nava MD [address] [place] [id number] [address] Referral ID Status Reason Start Date Expiration Date Visits Requested Visits Authorized [id number] Additional Clinical Info Needed Auto-Generat ed Referral 12/31/2021 01/30/2023 1 1 Specialty Diagnoses / Procedures Referred By Precious courtney Referred To Contact BR IMAGING Diagnoses Screening breast examination Procedures BELKIS SCREENING SCREENING MAMMOGRAPHY BI 2-VIEW BREAST INC CAD Freddy Nava MD [address] [place] [address] Br Imaging [address] [place] [address] Referral ID Status Reason Start Date Expiration Date Visits Requested Visits Authorized [id number] Pending Review Auto-Generat ed Referral 12/31/2021 01/30/2023 1 1 Referral ID Status Reason Start Date Expiration Date V isits Requested Visits Authorized [id number] Closed Auto-Generat ed Referral Patient Cleared - Admin/Chairm an/Director advise to proceed 12/31/2021 01/30/2023 2 2 Specialty Diagnoses / Procedures Referred By Contac t Referred To Contact Gynecology Diagnoses Thickened endometrium Procedures CONSULT TO GYNECOLOGY OFFICE/OUTPATIENT [facility] 60-74 MINUTES Freddy Nava MD [address] [place] [address] Referral ID Status Reason Start Date Expiration Date Visits Requested Visits Authorized [id number] Authorized PCP Requested Referral Auto-Generate d Referral 01/05/2022 01/05/2023 1 1 Specialty Diagnoses / Procedures Referred By Contac t Referred To Contact Ent - Otolaryngology Diagnoses Voice hoarseness Procedures CONSULT TO ENT OFFICE/OUTPATIENT [facility] 60-74 MINUTES Dona Munoz APRN.CNP [address] [place] [address] Referral ID Status Reason Start Date Expiration Date Visits Requested Visits Authorized [id number] Authorized PCP Requested Referral 02/20/2023 1 1 Specialty Diagnoses / Procedures Referred By Contac t Referred To Contact Diagnoses Tobacco use Procedures CONSULT LUNG CANCER SCREENING CLINIC Freddy Nava MD [address] [place] [address] Referral ID Status Reason Start Date Expiration Date Visits Requested Visits Authorized [id number] Ref Not Required PCP Requested Referral 05/21/2022 08/19/2022 1 1 Specialty Diagnoses / Procedures Referred By Contac t Referred To Contact Diagnoses Hypothyroidism, acquired Freddy Nava MD [address] [place] [address] Referral ID Status Reason Start Date Expiration Date Visits Re quested Visits Authorized [id number] Closed 1 1 Specialty Diagnoses / Procedures Referred By Contac t Referred To Contact Neurology Diagnoses Nocturnal oxygen desaturation ANDRESSA (obstructive sleep apnea) Arnold-Chiari deformity (HCC) Paresthesia Procedures CONSULT TO NEUROLOGY OFFICE/OUTPATIENT [facility] 60 MINUTES Freddy Nava MD [address] [place] [address] Referral ID Status Reason Start Date Expiration Date Visits Requested Visits Authorized [id number] Authorized PCP Requested Referral 07/07/2023 07/06/2024 1 1 Specialty Diagnoses / Procedures Referred By Contac t Referred To Contact CT IMAGING Diagnoses Tobacco use Procedures CT LUNG SCREEN WO IVCON COMPUTED TOMOGRAPHY THORAX LW DOSE LNG CA Hannah Medina, PAPER CONE MAKER.NARCOTICS AND VICE DETECTIVE [address] [place] [address] Ct Imaging [place] [address] Referral ID Status Reason Start Date Expiration Date Visits Requested Visits Authorized [id number] Pending Review Auto-Generat ed Referral 08/30/2023 09/28/2024 1 1 Specialty Diagnoses / Procedures Referred By Contac t Referred To Contact General Surgery Diagnoses Umbilical hernia without obstruction and without gangrene Procedures CONSULT TO GENERAL SURGERY OFFICE/OUTPATIENT [facility] 60 MINUTES Chilo Johnson MD [address] [place] [address] Referral ID Status Reason Start Date Expiration Date Visits Requested Visits Authorized [id number] Authorized PCP Requested Referral 09/13/2023 09/12/2024 1 1 Specialty Diagnoses / Procedures Referred By Contac t Referred To Contact CT IMAGING Diagnoses Microscopic hematuria Procedures CT UROGRAM WO/W IVCON CT ABD & PELVIS W/WO CONTRST 1+ BODY REGNS Yarelis Adkins, PAPER CONE MAKER.GATE CLERK [address] [place] [address] [place] [address] Referral ID Status Reason Start Date Expiration Date Visits Requested Visits Authorized [id number] Authorized Auto-Generat ed Referral 11/03/2023 12/18/2023 1 1 Specialty Diagnoses / Procedures Referred By Contac t Referred To Contact Podiatry Diagnoses Foot lesion Onychomycosis Procedures CONSULT TO PODIATRY OFFICE/OUTPATIENT [facility] 60 MINUTES Freddy Nava MD [address] [place] [address] Referral ID Status Reason Start Date Expiration Date Visits Requested Visits Authorized [id number] Authorized PCP Requested Referral 01/24/2024 01/23/2025 1 1 Specialty Diagnoses / Procedures Referred By Contac t Referred To Contact Radiology Diagnoses Monoallelic mutation of FLNB gene Procedures XR skeletal survey [place] [address] [facility] [place] [address] Referral ID Status Reason Start Date Expiration Date Visits Requested Visits Authorized [id number] Authorized Perform Procedure 02/01/2024 01/31/2025 1 1 Specialty Diagnoses / Procedures Referred By Contac t Referred To Contact Pulmonary and Critical Care Medicine Diagnoses Neoplasm of lung Procedures CONSULT TO PULM/CRITICAL CARE OFFICE/OUTPATIENT [facility] 60 MINUTES Yarelis Adkins APRN.CNP [address] [place] [address] Referral ID Status Reason Start Date Expiration Date Visits Requested Visits Authorized [id number] Authorized PCP Requested Referral 02/25/2024 02/23/2025 1 1 Specialty Diagnoses / Procedures Referred By Contac t Referred To Contact Diagnoses Gastroesophageal reflux disease without esophagitis Freddy Nava MD [address] [place] [address] Referral ID Status Reason Start Date Expiration Date V isits Requested Visits Authorized [id number] Authorized 05/17/2024 08/08/2024 1 1 Additional Source Comments INFORMATION SOURCE (unrecogn ized section and content) DATE CREATED AUTHOR 10/12/2017 [facility] DATE CREATED AUTHOR AUTHOR'S ORGANIZ ATION 2017 [facility] DATE CREATED AUTHOR AUTHOR'S ORGANIZ ATION 06/15/2018 [facility] DATE CREATED AUTHOR AUTHOR'S ORGANIZ ATION 06/28/2018 [facility] DATE CREATED AUTHOR AUTHOR'S ORGANIZ ATION 12/07/2018 [employer] DATE CREATED AUTHOR AUTHOR'S ORGANIZ ATION 05/03/2019 [facility] DATE CREATED AUTHOR AUTHOR'S ORGANIZ ATION 02/03/2024 [facility] DATE CREATED AUTHOR AUTHOR'S ORGANIZ ATION 09/11/2024 [facility] DATE CREATED AUTHOR AUTHOR'S ORGANIZ ATION 10/04/2024 [facility] DATE CREATED AUTHOR AUTHOR'S ORGANIZ ATION 11/26/[address] [facility] DATE CREATED AUTHOR AUTHOR'S ORGANIZ ATION 12/22/2024 [facility] Source Comments (unrecognize d section and content) In the event this informatio n is protected by the Federal Confidentiality of Alcohol and Drug Abuse Patient Records regulations: The Federal rules restrict any use of the information to criminally investigate or prosecute any alcohol or drug abuse patient.[facility] the event this information is protected by the Federal Confidentiality of Alcohol and Drug Abuse Patient Records regulations: The Federal rules restrict any use of the information to criminally investigate or prosecute any alcohol or drug abuse patient.[facility] the event this information is protected by the Federal Confidentiality of Alcohol and Drug Abuse Patient Records regulations: The Federal rules restrict any use of the information to criminally investigate or prosecute any alcohol or drug abuse patient.[facility] the event this information is protected by the Federal Confidentiality of Alcohol and Drug Abuse Patient Records regulations: The Federal rules restrict any use of the information to criminally investigate or prosecute any alcohol or drug abuse patient.[facility] the event this information is protected by the Federal Confidentiality of Alcohol and Drug Abuse Patient Records regulations: The Federal rules restrict any use of the information to criminally investigate or prosecute any alcohol or drug abuse patient.[facility] the event this information is protected by the Federal Confidentiality of Alcohol and Drug Abuse Patient Records regulations: The Federal rules restrict any use of the information to criminally investigate or prosecute any alcohol or drug abuse patient.[facility] the event this information is protected by the Federal Confidentiality of Alcohol and Drug Abuse Patient Records regulations: The Federal rules restrict any use of the information to criminally investigate or prosecute any alcohol or drug abuse patient.[facility] the event this information is protected by the Federal Confidentiality of Alcohol and Drug Abuse Patient Records regulations: The Federal rules restrict any use of the information to criminally investigate or prosecute any alcohol or drug abuse patient.[facility] the event this information is protected by the Federal Confidentiality of Alcohol and Drug Abuse Patient Records regulations: The Federal rules restrict any use of the information to criminally investigate or prosecute any alcohol or drug abuse patient.[facility] the event this information is protected by the Federal Confidentiality of Alcohol and Drug Abuse Patient Records regulations: The Federal rules restrict any use of the information to criminally investigate or prosecute any alcohol or drug abuse patient.[facility]In the event this information is protected by the Federal Confidentiality of Alcohol and Drug Abuse Patient Records regulations: The Federal rules restrict any use of the information to criminally investigate or prosecute any alcohol or drug abuse patient.[facility] HospitalIn the event this information is protected by the Federal Confidentiality of Alcohol and Drug Abuse Patient Records regulations: The Federal rules restrict any use of the information to criminally investigate or prosecute any alcohol or drug abuse patient.[facility] HospitalIn the event this information is protected by the Federal Confidentiality of Alcohol and Drug Abuse Patient Records regulations: The Federal rules restrict any use of the information to criminally investigate or prosecute any alcohol or drug abuse patient.[facility] HospitalIn the event this information is protected by the Federal Confidentiality of Alcohol and Drug Abuse Patient Records regulations: The Federal rules restrict any use of the information to criminally investigate or prosecute any alcohol or drug abuse patient.[facility] HospitalIn the event this information is protected by the Federal Confidentiality of Alcohol and Drug Abuse Patient Records regulations: The Federal rules restrict any use of the information to criminally investigate or prosecute any alcohol or drug abuse patient.[facility] HospitalIn the event this information is protected by the Federal Confidentiality of Alcohol and Drug Abuse Patient Records regulations: The Federal rules restrict any use of the information to criminally investigate or prosecute any alcohol or drug abuse patient.[facility] HospitalIn the event this information is protected by the Federal Confidentiality of Alcohol and Drug Abuse Patient Records regulations: The Federal rules restrict any use of the information to criminally investigate or prosecute any alcohol or drug abuse patient.[facility] HospitalIn the event this information is protected by the Federal Confidentiality of Alcohol and Drug Abuse Patient Records regulations: The Federal rules restrict any use of the information to criminally investigate or prosecute any alcohol or drug abuse patient.[facility] HospitalIn the event this information is protected by the Federal Confidentiality of Alcohol and Drug Abuse Patient Records regulations: The Federal rules restrict any use of the information to criminally investigate or prosecute any alcohol or drug abuse patient.[facility] HospitalIn the event this information is protected by the Federal Confidentiality of Alcohol and Drug Abuse Patient Records regulations: The Federal rules restrict any use of the information to criminally investigate or prosecute any alcohol or drug abuse patient.[facility] HospitalIn the event this information is protected by the Federal Confidentiality of Alcohol and Drug Abuse Patient Records regulations: The Federal rules restrict any use of the information to criminally investigate or prosecute any alcohol or drug abuse patient.[facility]In the event this information is protected by the Federal Confidentiality of Alcohol and Drug Abuse Patient Records regulations: The Federal rules restrict any use of the information to criminally investigate or prosecute any alcohol or drug abuse patient.[facility] HospitalIn the event this information is protected by the Federal Confidentiality of Alcohol and Drug Abuse Patient Records regulations: The Federal rules restrict any use of the information to criminally investigate or prosecute any alcohol or drug abuse patient.[facility] HospitalIn the event this information is protected by the Federal Confidentiality of Alcohol and Drug Abuse Patient Records regulations: The Federal rules restrict any use of the information to criminally investigate or prosecute any alcohol or drug abuse patient.[facility] HospitalIn the event this information is protected by the Federal Confidentiality of Alcohol and Drug Abuse Patient Records regulations: The Federal rules restrict any use of the information to criminally investigate or prosecute any alcohol or drug abuse patient.[facility] HospitalIn the event this information is protected by the Federal Confidentiality of Alcohol and Drug Abuse Patient Records regulations: The Federal rules restrict any use of the information to criminally investigate or prosecute any alcohol or drug abuse patient.[facility] HospitalIn the event this information is protected by the Federal Confidentiality of Alcohol and Drug Abuse Patient Records regulations: The Federal rules restrict any use of the information to criminally investigate or prosecute any alcohol or drug abuse patient.[facility] HospitalIn the event this information is protected by the Federal Confidentiality of Alcohol and Drug Abuse Patient Records regulations: The Federal rules restrict any use of the information to criminally investigate or prosecute any alcohol or drug abuse patient.[facility] HospitalIn the event this information is protected by the Federal Confidentiality of Alcohol and Drug Abuse Patient Records regulations: The Federal rules restrict any use of the information to criminally investigate or prosecute any alcohol or drug abuse patient.[facility] HospitalIn the event this information is protected by the Federal Confidentiality of Alcohol and Drug Abuse Patient Records regulations: The Federal rules restrict any use of the information to criminally investigate or prosecute any alcohol or drug abuse patient.[facility] HospitalIn the event this information is protected by the Federal Confidentiality of Alcohol and Drug Abuse Patient Records regulations: The Federal rules restrict any use of the information to criminally investigate or prosecute any alcohol or drug abuse patient.[facility] HospitalIn the event this information is protected by the Federal Confidentiality of Alcohol and Drug Abuse Patient Records regulations: The Federal rules restrict any use of the information to criminally investigate or prosecute any alcohol or drug abuse patient.[facility] HospitalIn the event this information is protected by the Federal Confidentiality of Alcohol and Drug Abuse Patient Records regulations: The Federal rules restrict any use of the information to criminally investigate or prosecute any alcohol or drug abuse patient.[facility] HospitalIn the event this information is protected by the Federal Confidentiality of Alcohol and Drug Abuse Patient Records regulations: The Federal rules restrict any use of the information to criminally investigate or prosecute any alcohol or drug abuse patient.[facility] HospitalIn the event this information is protected by the Federal Confidentiality of Alcohol and Drug Abuse Patient Records regulations: The Federal rules restrict any use of the information to criminally investigate or prosecute any alcohol or drug abuse patient.[facility] HospitalIn the event this information is protected by the Federal Confidentiality of Alcohol and Drug Abuse Patient Records regulations: The Federal rules restrict any use of the information to criminally investigate or prosecute any alcohol or drug abuse patient.[facility] HospitalIn the event this information is protected by the Federal Confidentiality of Alcohol and Drug Abuse Patient Records regulations: The Federal rules restrict any use of the information to criminally investigate or prosecute any alcohol or drug abuse patient.[facility] HospitalIn the event this information is protected by the Federal Confidentiality of Alcohol and Drug Abuse Patient Records regulations: The Federal rules restrict any use of the information to criminally investigate or prosecute any alcohol or drug abuse patient.[facility] HospitalIn the event this information is protected by the Federal Confidentiality of Alcohol and Drug Abuse Patient Records regulations: The Federal rules restrict any use of the information to criminally investigate or prosecute any alcohol or drug abuse patient.[facility] HospitalIn the event this information is protected by the Federal Confidentiality of Alcohol and Drug Abuse Patient Records regulations: The Federal rules restrict any use of the information to criminally investigate or prosecute any alcohol or drug abuse patient.[facility] HospitalIn the event this information is protected by the Federal Confidentiality of Alcohol and Drug Abuse Patient Records regulations: The Federal rules restrict any use of the information to criminally investigate or prosecute any alcohol or drug abuse patient.[facility] HospitalIn the event this information is protected by the Federal Confidentiality of Alcohol and Drug Abuse Patient Records regulations: The Federal rules restrict any use of the information to criminally investigate or prosecute any alcohol or drug abuse patient.[facility] HospitalIn the event this information is protected by the Federal Confidentiality of Alcohol and Drug Abuse Patient Records regulations: The Federal rules restrict any use of the information to criminally investigate or prosecute any alcohol or drug abuse patient.[facility] HospitalIn the event this information is protected by the Federal Confidentiality of Alcohol and Drug Abuse Patient Records regulations: The Federal rules restrict any use of the information to criminally investigate or prosecute any alcohol or drug abuse patient.[facility]In the event this information is protected by the Federal Confidentiality of Alcohol and Drug Abuse Patient Records regulations: The Federal rules restrict any use of the information to criminally investigate or prosecute any alcohol or drug abuse patient.[facility] HospitalIn the event this information is protected by the Federal Confidentiality of Alcohol and Drug Abuse Patient Records regulations: The Federal rules restrict any use of the information to criminally investigate or prosecute any alcohol or drug abuse patient.[facility] HospitalIn the event this information is protected by the Federal Confidentiality of Alcohol and Drug Abuse Patient Records regulations: The Federal rules restrict any use of the information to criminally investigate or prosecute any alcohol or drug abuse patient.[facility] HospitalIn the event this information is protected by the Federal Confidentiality of Alcohol and Drug Abuse Patient Records regulations: The Federal rules restrict any use of the information to criminally investigate or prosecute any alcohol or drug abuse patient.[facility] HospitalIn the event this information is protected by the Federal Confidentiality of Alcohol and Drug Abuse Patient Records regulations: The Federal rules restrict any use of the information to criminally investigate or prosecute any alcohol or drug abuse patient.[facility] HospitalIn the event this information is protected by the Federal Confidentiality of Alcohol and Drug Abuse Patient Records regulations: The Federal rules restrict any use of the information to criminally investigate or prosecute any alcohol or drug abuse patient.[facility] HospitalIn the event this information is protected by the Federal Confidentiality of Alcohol and Drug Abuse Patient Records regulations: The Federal rules restrict any use of the information to criminally investigate or prosecute any alcohol or drug abuse patient.[facility] HospitalIn the event this information is protected by the Federal Confidentiality of Alcohol and Drug Abuse Patient Records regulations: The Federal rules restrict any use of the information to criminally investigate or prosecute any alcohol or drug abuse patient.[facility] HospitalIn the event this information is protected by the Federal Confidentiality of Alcohol and Drug Abuse Patient Records regulations: The Federal rules restrict any use of the information to criminally investigate or prosecute any alcohol or drug abuse patient.[facility] HospitalIn the event this information is protected by the Federal Confidentiality of Alcohol and Drug Abuse Patient Records regulations: The Federal rules restrict any use of the information to criminally investigate or prosecute any alcohol or drug abuse patient.[facility] HospitalIn the event this information is protected by the Federal Confidentiality of Alcohol and Drug Abuse Patient Records regulations: The Federal rules restrict any use of the information to criminally investigate or prosecute any alcohol or drug abuse patient.[facility] HospitalIn the event this information is protected by the Federal Confidentiality of Alcohol and Drug Abuse Patient Records regulations: The Federal rules restrict any use of the information to criminally investigate or prosecute any alcohol or drug abuse patient.[facility] HospitalIn the event this information is protected by the Federal Confidentiality of Alcohol and Drug Abuse Patient Records regulations: The Federal rules restrict any use of the information to criminally investigate or prosecute any alcohol or drug abuse patient.[facility] HospitalIn the event this information is protected by the Federal Confidentiality of Alcohol and Drug Abuse Patient Records regulations: The Federal rules restrict any use of the information to criminally investigate or prosecute any alcohol or drug abuse patient.[facility] HospitalIn the event this information is protected by the Federal Confidentiality of Alcohol and Drug Abuse Patient Records regulations: The Federal rules restrict any use of the information to criminally investigate or prosecute any alcohol or drug abuse patient.[facility] HospitalIn the event this information is protected by the Federal Confidentiality of Alcohol and Drug Abuse Patient Records regulations: The Federal rules restrict any use of the information to criminally investigate or prosecute any alcohol or drug abuse patient.[facility] HospitalIn the event this information is protected by the Federal Confidentiality of Alcohol and Drug Abuse Patient Records regulations: The Federal rules restrict any use of the information to criminally investigate or prosecute any alcohol or drug abuse patient.[facility] HospitalIn the event this information is protected by the Federal Confidentiality of Alcohol and Drug Abuse Patient Records regulations: The Federal rules restrict any use of the information to criminally investigate or prosecute any alcohol or drug abuse patient.[facility]In the event this information is protected by the Federal Confidentiality of Alcohol and Drug Abuse Patient Records regulations: The Federal rules restrict any use of the information to criminally investigate or prosecute any alcohol or drug abuse patient.[facility] HospitalIn the event this information is protected by the Federal Confidentiality of Alcohol and Drug Abuse Patient Records regulations: The Federal rules restrict any use of the information to criminally investigate or prosecute any alcohol or drug abuse patient.[facility] HospitalIn the event this information is protected by the Federal Confidentiality of Alcohol and Drug Abuse Patient Records regulations: The Federal rules restrict any use of the information to criminally investigate or prosecute any alcohol or drug abuse patient.[facility] HospitalIn the event this information is protected by the Federal Confidentiality of Alcohol and Drug Abuse Patient Records regulations: The Federal rules restrict any use of the information to criminally investigate or prosecute any alcohol or drug abuse patient.[facility]In the event this information is protected by the Federal Confidentiality of Alcohol and Drug Abuse Patient Records regulations: The Federal rules restrict any use of the information to criminally investigate or prosecute any alcohol or drug abuse patient.[facility]In the event this information is protected by the Federal Confidentiality of Alcohol and Drug Abuse Patient Records regulations: The Federal rules restrict any use of the information to criminally investigate or prosecute any alcohol or drug abuse patient.[facility] HospitalIn the event this information is protected by the Federal Confidentiality of Alcohol and Drug Abuse Patient Records regulations: The Federal rules restrict any use of the information to criminally investigate or prosecute any alcohol or drug abuse patient.[facility]In the event this information is protected by the Federal Confidentiality of Alcohol and Drug Abuse Patient Records regulations: The Federal rules restrict any use of the information to criminally investigate or prosecute any alcohol or drug abuse patient.[facility]In the event this information is protected by the Federal Confidentiality of Alcohol and Drug Abuse Patient Records regulations: The Federal rules restrict any use of the information to criminally investigate or prosecute any alcohol or drug abuse patient.[facility]In the event this information is protected by the Federal Confidentiality of Alcohol and Drug Abuse Patient Records regulations: The Federal rules restrict any use of the information to criminally investigate or prosecute any alcohol or drug abuse patient.[facility]In the event this information is protected by the Federal Confidentiality of Alcohol and Drug Abuse Patient Records regulations: The Federal rules restrict any use of the information to criminally investigate or prosecute any alcohol or drug abuse patient.[facility]In the event this information is protected by the Federal Confidentiality of Alcohol and Drug Abuse Patient Records regulations: The Federal rules restrict any use of the information to criminally investigate or prosecute any alcohol or drug abuse patient.[facility] HospitalIn the event this information is protected by the Federal Confidentiality of Alcohol and Drug Abuse Patient Records regulations: The Federal rules restrict any use of the information to criminally investigate or prosecute any alcohol or drug abuse patient.[facility]In the event this information is protected by the Federal Confidentiality of Alcohol and Drug Abuse Patient Records regulations: The Federal rules restrict any use of the information to criminally investigate or prosecute any alcohol or drug abuse patient.[facility]In the event this information is protected by the Federal Confidentiality of Alcohol and Drug Abuse Patient Records regulations: The Federal rules restrict any use of the information to criminally investigate or prosecute any alcohol or drug abuse patient.[facility]In the event this information is protected by the Federal Confidentiality of Alcohol and Drug Abuse Patient Records regulations: The Federal rules restrict any use of the information to criminally investigate or prosecute any alcohol or drug abuse patient.[facility]In the event this information is protected by the Federal Confidentiality of Alcohol and Drug Abuse Patient Records regulations: The Federal rules restrict any use of the information to criminally investigate or prosecute any alcohol or drug abuse patient.[facility]In the event this information is protected by the Federal Confidentiality of Alcohol and Drug Abuse Patient Records regulations: The Federal rules restrict any use of the information to criminally investigate or prosecute any alcohol or drug abuse patient.[facility]In the event this information is protected by the Federal Confidentiality of Alcohol and Drug Abuse Patient Records regulations: The Federal rules restrict any use of the information to criminally investigate or prosecute any alcohol or drug abuse patient.[facility]In the event this information is protected by the Federal Confidentiality of Alcohol and Drug Abuse Patient Records regulations: The Federal rules restrict any use of the information to criminally investigate or prosecute any alcohol or drug abuse patient.[facility]In the event this information is protected by the Federal Confidentiality of Alcohol and Drug Abuse Patient Records regulations: The Federal rules restrict any use of the information to criminally investigate or prosecute any alcohol or drug abuse patient.[facility]In the event this information is protected by the Federal Confidentiality of Alcohol and Drug Abuse Patient Records regulations: The Federal rules restrict any use of the information to criminally investigate or prosecute any alcohol or drug abuse patient.[facility]In the event this information is protected by the Federal Confidentiality of Alcohol and Drug Abuse Patient Records regulations: The Federal rules restrict any use of the information to criminally investigate or prosecute any alcohol or drug abuse patient.[facility]In the event this information is protected by the Federal Confidentiality of Alcohol and Drug Abuse Patient Records regulations: The Federal rules restrict any use of the information to criminally investigate or prosecute any alcohol or drug abuse patient.[facility]In the event this information is protected by the Federal Confidentiality of Alcohol and Drug Abuse Patient Records regulations: The Federal rules restrict any use of the information to criminally investigate or prosecute any alcohol or drug abuse patient.[facility]In the event this information is protected by the Federal Confidentiality of Alcohol and Drug Abuse Patient Records regulations: The Federal rules restrict any use of the information to criminally investigate or prosecute any alcohol or drug abuse patient.[facility]In the event this information is protected by the Federal Confidentiality of Alcohol and Drug Abuse Patient Records regulations: The Federal rules restrict any use of the information to criminally investigate or prosecute any alcohol or drug abuse patient.[facility]In the event this information is protected by the Federal Confidentiality of Alcohol and Drug Abuse Patient Records regulations: The Federal rules restrict any use of the information to criminally investigate or prosecute any alcohol or drug abuse patient.[facility]In the event this information is protected by the Federal Confidentiality of Alcohol and Drug Abuse Patient Records regulations: The Federal rules restrict any use of the information to criminally investigate or prosecute any alcohol or drug abuse patient.[facility]In the event this information is protected by the Federal Confidentiality of Alcohol and Drug Abuse Patient Records regulations: The Federal rules restrict any use of the information to criminally investigate or prosecute any alcohol or drug abuse patient.[facility]In the event this information is protected by the Federal Confidentiality of Alcohol and Drug Abuse Patient Records regulations: The Federal rules restrict any use of the information to criminally investigate or prosecute any alcohol or drug abuse patient.[facility]In the event this information is protected by the Federal Confidentiality of Alcohol and Drug Abuse Patient Records regulations: The Federal rules restrict any use of the information to criminally investigate or prosecute any alcohol or drug abuse patient.[facility]In the event this information is protected by the Federal Confidentiality of Alcohol and Drug Abuse Patient Records regulations: The Federal rules restrict any use of the information to criminally investigate or prosecute any alcohol or drug abuse patient.[facility] HospitalIn the event this information is protected by the Federal Confidentiality of Alcohol and Drug Abuse Patient Records regulations: The Federal rules restrict any use of the information to criminally investigate or prosecute any alcohol or drug abuse patient.[facility] HospitalIn the event this information is protected by the Federal Confidentiality of Alcohol and Drug Abuse Patient Records regulations: The Federal rules restrict any use of the information to criminally investigate or prosecute any alcohol or drug abuse patient.[facility] HospitalIn the event this information is protected by the Federal Confidentiality of Alcohol and Drug Abuse Patient Records regulations: The Federal rules restrict any use of the information to criminally investigate or prosecute any alcohol or drug abuse patient.[facility] HospitalIn the event this information is protected by the Federal Confidentiality of Alcohol and Drug Abuse Patient Records regulations: The Federal rules restrict any use of the information to criminally investigate or prosecute any alcohol or drug abuse patient.[facility] HospitalIn the event this information is protected by the Federal Confidentiality of Alcohol and Drug Abuse Patient Records regulations: The Federal rules restrict any use of the information to criminally investigate or prosecute any alcohol or drug abuse patient.[facility] HospitalIn the event this information is protected by the Federal Confidentiality of Alcohol and Drug Abuse Patient Records regulations: The Federal rules restrict any use of the information to criminally investigate or prosecute any alcohol or drug abuse patient.[facility] HospitalIn the event this information is protected by the Federal Confidentiality of Alcohol and Drug Abuse Patient Records regulations: The Federal rules restrict any use of the information to criminally investigate or prosecute any alcohol or drug abuse patient.[facility] HospitalIn the event this information is protected by the Federal Confidentiality of Alcohol and Drug Abuse Patient Records regulations: The Federal rules restrict any use of the information to criminally investigate or prosecute any alcohol or drug abuse patient.[facility] HospitalIn the event this information is protected by the Federal Confidentiality of Alcohol and Drug Abuse Patient Records regulations: The Federal rules restrict any use of the information to criminally investigate or prosecute any alcohol or drug abuse patient.[facility] HospitalIn the event this information is protected by the Federal Confidentiality of Alcohol and Drug Abuse Patient Records regulations: The Federal rules restrict any use of the information to criminally investigate or prosecute any alcohol or drug abuse patient.[facility] HospitalIn the event this information is protected by the Federal Confidentiality of Alcohol and Drug Abuse Patient Records regulations: The Federal rules restrict any use of the information to criminally investigate or prosecute any alcohol or drug abuse patient.[facility] HospitalIn the event this information is protected by the Federal Confidentiality of Alcohol and Drug Abuse Patient Records regulations: The Federal rules restrict any use of the information to criminally investigate or prosecute any alcohol or drug abuse patient.[facility] HospitalIn the event this information is protected by the Federal Confidentiality of Alcohol and Drug Abuse Patient Records regulations: The Federal rules restrict any use of the information to criminally investigate or prosecute any alcohol or drug abuse patient.[facility] HospitalIn the event this information is protected by the Federal Confidentiality of Alcohol and Drug Abuse Patient Records regulations: The Federal rules restrict any use of the information to criminally investigate or prosecute any alcohol or drug abuse patient.[facility] HospitalIn the event this information is protected by the Federal Confidentiality of Alcohol and Drug Abuse Patient Records regulations: The Federal rules restrict any use of the information to criminally investigate or prosecute any alcohol or drug abuse patient.[facility] HospitalIn the event this information is protected by the Federal Confidentiality of Alcohol and Drug Abuse Patient Records regulations: The Federal rules restrict any use of the information to criminally investigate or prosecute any alcohol or drug abuse patient.[facility] HospitalIn the event this information is protected by the Federal Confidentiality of Alcohol and Drug Abuse Patient Records regulations: The Federal rules restrict any use of the information to criminally investigate or prosecute any alcohol or drug abuse patient.[facility] HospitalIn the event this information is protected by the Federal Confidentiality of Alcohol and Drug Abuse Patient Records regulations: The Federal rules restrict any use of the information to criminally investigate or prosecute any alcohol or drug abuse patient.[facility] HospitalIn the event this information is protected by the Federal Confidentiality of Alcohol and Drug Abuse Patient Records regulations: The Federal rules restrict any use of the information to criminally investigate or prosecute any alcohol or drug abuse patient.[facility] HospitalIn the event this information is protected by the Federal Confidentiality of Alcohol and Drug Abuse Patient Records regulations: The Federal rules restrict any use of the information to criminally investigate or prosecute any alcohol or drug abuse patient.[facility] HospitalIn the event this information is protected by the Federal Confidentiality of Alcohol and Drug Abuse Patient Records regulations: The Federal rules restrict any use of the information to criminally investigate or prosecute any alcohol or drug abuse patient.[facility] HospitalIn the event this information is protected by the Federal Confidentiality of Alcohol and Drug Abuse Patient Records regulations: The Federal rules restrict any use of the information to criminally investigate or prosecute any alcohol or drug abuse patient.[facility] HospitalIn the event this information is protected by the Federal Confidentiality of Alcohol and Drug Abuse Patient Records regulations: The Federal rules restrict any use of the information to criminally investigate or prosecute any alcohol or drug abuse patient.[facility] HospitalIn the event this information is protected by the Federal Confidentiality of Alcohol and Drug Abuse Patient Records regulations: The Federal rules restrict any use of the information to criminally investigate or prosecute any alcohol or drug abuse patient.[facility] HospitalIn the event this information is protected by the Federal Confidentiality of Alcohol and Drug Abuse Patient Records regulations: The Federal rules restrict any use of the information to criminally investigate or prosecute any alcohol or drug abuse patient.[facility] HospitalIn the event this information is protected by the Federal Confidentiality of Alcohol and Drug Abuse Patient Records regulations: The Federal rules restrict any use of the information to criminally investigate or prosecute any alcohol or drug abuse patient.[facility] HospitalIn the event this information is protected by the Federal Confidentiality of Alcohol and Drug Abuse Patient Records regulations: The Federal rules restrict any use of the information to criminally investigate or prosecute any alcohol or drug abuse patient.[facility] HospitalIn the event this information is protected by the Federal Confidentiality of Alcohol and Drug Abuse Patient Records regulations: The Federal rules restrict any use of the information to criminally investigate or prosecute any alcohol or drug abuse patient.[facility] HospitalIn the event this information is protected by the Federal Confidentiality of Alcohol and Drug Abuse Patient Records regulations: The Federal rules restrict any use of the information to criminally investigate or prosecute any alcohol or drug abuse patient.[facility] HospitalIn the event this information is protected by the Federal Confidentiality of Alcohol and Drug Abuse Patient Records regulations: The Federal rules restrict any use of the information to criminally investigate or prosecute any alcohol or drug abuse patient.[facility] HospitalIn the event this information is protected by the Federal Confidentiality of Alcohol and Drug Abuse Patient Records regulations: The Federal rules restrict any use of the information to criminally investigate or prosecute any alcohol or drug abuse patient.[facility] HospitalIn the event this information is protected by the Federal Confidentiality of Alcohol and Drug Abuse Patient Records regulations: The Federal rules restrict any use of the information to criminally investigate or prosecute any alcohol or drug abuse patient.[facility] HospitalIn the event this information is protected by the Federal Confidentiality of Alcohol and Drug Abuse Patient Records regulations: The Federal rules restrict any use of the information to criminally investigate or prosecute any alcohol or drug abuse patient.[facility] HospitalIn the event this information is protected by the Federal Confidentiality of Alcohol and Drug Abuse Patient Records regulations: The Federal rules restrict any use of the information to criminally investigate or prosecute any alcohol or drug abuse patient.[facility] HospitalIn the event this information is protected by the Federal Confidentiality of Alcohol and Drug Abuse Patient Records regulations: The Federal rules restrict any use of the information to criminally investigate or prosecute any alcohol or drug abuse patient.[facility] HospitalIn the event this information is protected by the Federal Confidentiality of Alcohol and Drug Abuse Patient Records regulations: The Federal rules restrict any use of the information to criminally investigate or prosecute any alcohol or drug abuse patient.[facility] HospitalIn the event this information is protected by the Federal Confidentiality of Alcohol and Drug Abuse Patient Records regulations: The Federal rules restrict any use of the information to criminally investigate or prosecute any alcohol or drug abuse patient.[facility] HospitalIn the event this information is protected by the Federal Confidentiality of Alcohol and Drug Abuse Patient Records regulations: The Federal rules restrict any use of the information to criminally investigate or prosecute any alcohol or drug abuse patient.[facility] HospitalIn the event this information is protected by the Federal Confidentiality of Alcohol and Drug Abuse Patient Records regulations: The Federal rules restrict any use of the information to criminally investigate or prosecute any alcohol or drug abuse patient.[facility] HospitalIn the event this information is protected by the Federal Confidentiality of Alcohol and Drug Abuse Patient Records regulations: The Federal rules restrict any use of the information to criminally investigate or prosecute any alcohol or drug abuse patient.[facility] HospitalIn the event this information is protected by the Federal Confidentiality of Alcohol and Drug Abuse Patient Records regulations: The Federal rules restrict any use of the information to criminally investigate or prosecute any alcohol or drug abuse patient.[facility] HospitalIn the event this information is protected by the Federal Confidentiality of Alcohol and Drug Abuse Patient Records regulations: The Federal rules restrict any use of the information to criminally investigate or prosecute any alcohol or drug abuse patient.[facility] HospitalIn the event this information is protected by the Federal Confidentiality of Alcohol and Drug Abuse Patient Records regulations: The Federal rules restrict any use of the information to criminally investigate or prosecute any alcohol or drug abuse patient.[facility] HospitalIn the event this information is protected by the Federal Confidentiality of Alcohol and Drug Abuse Patient Records regulations: The Federal rules restrict any use of the information to criminally investigate or prosecute any alcohol or drug abuse patient.[facility] HospitalIn the event this information is protected by the Federal Confidentiality of Alcohol and Drug Abuse Patient Records regulations: The Federal rules restrict any use of the information to criminally investigate or prosecute any alcohol or drug abuse patient.[facility] HospitalIn the event this information is protected by the Federal Confidentiality of Alcohol and Drug Abuse Patient Records regulations: The Federal rules restrict any use of the information to criminally investigate or prosecute any alcohol or drug abuse patient.[facility] HospitalIn the event this information is protected by the Federal Confidentiality of Alcohol and Drug Abuse Patient Records regulations: The Federal rules restrict any use of the information to criminally investigate or prosecute any alcohol or drug abuse patient.[facility] Care Teams (unrecognized sec tion and content) Diamond Saw Operator Relationship Specialty Start Date End Date Freddy Nava MD [address] [place] [address] PCP - General 06/02/13 Diamond Saw Operator Relationship Specialty Start Date End Date Freddy Nava MD [facility] [place] [address] PCP - General 06/02/13 Diamond Saw Operator Relationship Specialty Start Date End Date Freddy Nava MD [facility] [place] [address] PCP - General 06/02/13 Diamond Saw Operator Relationship Specialty Start Date End Date Freddy Nava MD [facility] [place] [address] PCP - General 06/02/13 Diamond Saw Operator Relationship Specialty Start Date End Date Freddy Nava MD [facility] [place] [address] PCP - General 06/02/13 Diamond Saw Operator Relationship Specialty Start Date End Date Freddy Nava MD [address] [place] [id number] PCP - General 06/02/13 Diamond Saw Operator Relationship Specialty Start Date End Date Freddy Nava MD [address] [place] [address] PCP - General 06/02/13 Diamond Saw Operator Relationship Specialty Start Date End Date Freddy Nava MD [address] [facility] [place] [address] PCP - General 06/02/13 Diamond Saw Operator Relationship Specialty Start Date End Date Freddy Nava MD [address] [facility] [place] [address] PCP - General 06/02/13 Diamond Saw Operator Relationship Specialty [place] [address] [place] [address] PCP - General 06/02/13 Diamond Saw Operator Relationship Specialty [place] [address] [place] [address] PCP - General 06/02/13 Diamond Saw Operator Relationship Specialty [place] [address] [place] [address] [place] [address] PCP - General 06/02/13 Diamond Saw Operator Relationship Specialty Start Date End Date Freddy Nava MD [address] [facility] [place] [address] PCP - General 06/02/13 Diamond Saw Operator Relationship Specialty Start Date End Date Freddy aNva MD [address] [facility] [place] [address] PCP - General 06/02/13 Diamond Saw Operator Relationship Specialty Start Date End Date Freddy Nava MD [address] [facility] [place] [address] PCP - General 06/02/13 Diamond Saw Operator Relationship Specialty Start Date End Date Freddy Nava MD [address] [place] [address], [place] [address] PCP - General 06/02/13 Diamond Saw Operator Relationship Specialty Start Date End Date Freddy Nava MD [address] [place] [address] PCP - General 06/02/13 Diamond Saw Operator Relationship Specialty Start Date End Date Freddy Nava MD [address] [place] [address] PCP - General 06/02/13 Diamond Saw Operator Relationship Specialty Start Date End Date Freddy Nava MD [address] [facility] [place] [address] PCP - General 06/02/13 Diamond Saw Operator Relationship Specialty Start Date End Date Freddy Nava MD [address] [facility] [place] [address] PCP - General 06/02/13 Diamond Saw Operator Relationship Specialty Start Date End Date Freddy Nava MD [address] [facility] [place] [address] PCP - General 06/02/13 Team Status: Active Member Role Status Dates Dr. Freddy Nava MD Family Provider Active Dr. Freddy Nava MD Primary Care Provider Active Team Status: Inactive Member Role Status Dates Dr. Freddy Nava MD Primary Care Provider Active Dr. Gerhard Herrera MD Emergency Provider Active Diamond Saw Operator Relationship Specialty Start Date End Date Freddy Nava MD [address] [facility] [place] [address] PCP - General 06/02/13 Team Status: Inactive Member Role Status Dates Dr. Freddy Nava MD Primary Care Provider Active Dr. Gerhard Herrera MD Attending Provider, Emergency Pro vider Active Team Status: Active Member Role Status Dates Dr. Freddy Nava MD Primary Care Provider Active FANG BOBO Attending Provider, Referring Provider A ctive Team Status: Inactive Member Role Status Dates Dr. Freddy Nava MD Primary Care Provider Active [employer]ANG [employer]O Referring Provider Active [employer]ANG B[employer]O Attending Provider Active Diamond Saw Operator Relationship Specialty Start Date End Date Freddy Nava MD [address] [place], [place] 200181 PCP - General 06/02/13 Diamond Saw Operator Relationship Specialty Start Date End Date Freddy Nava MD [address] [place], [place] [address]181 PCP - General 06/02/13 Diamond Saw Operator Relationship Specialty Start Date End Date Freddy Nava MD [address] [place], [place] 356141 PCP - General 06/02/13 Diamond Saw Operator Relationship Specialty Start Date End Date Freddy Nava MD [address] [place] [address] PCP - General 06/02/13 Diamond Saw Operator Relationship Specialty Start Date End Date Freddy Nava MD [address] [place], [place] 314291 PCP - General 06/02/13 Diamond Saw Operator Relationship Specialty Start Date End Date Freddy Nava MD [address] [place], [place] 616041 PCP - General 06/02/13 Diamond Saw Operator Relationship Specialty Start Date End Date Freddy Nava MD [address] [place], [place] 150661 PCP - General 06/02/13 Diamond Saw Operator Relationship Specialty Start Date End Date Freddy Nava MD [address] [place] [address] PCP - General 06/02/13 Team Status: Inactive Member Role Status Dates Dr. Freddy Nava MD Primary Care Provider Active Dr. Noman Ye DO Emergency Provider Active Diamond Saw Operator Relationship Specialty Start Date End Date Freddy Nava MD [address] [place] [address] PCP - General 06/02/13 Diamond Saw Operator Relationship Specialty Start Date End Date Freddy Nava MD [address] [place] [address] PCP - General 06/02/13 Diamond Saw Operator Relationship Specialty Start Date End Date Freddy Nava MD [address] [place] [address] PCP - General 06/02/13 Diamond Saw Operator Relationship Specialty Start Date End Date Freddy Nava MD [address] [place] [address] PCP - General 06/02/13 Diamond Saw Operator Relationship Specialty Start Date End Date Freddy Nava MD [address] [place] [address] PCP - General 06/02/13 Diamond Saw Operator Relationship Specialty Start Date End Date Freddy Nava MD [address] [place] [address] PCP - General 06/02/13 Diamond Saw Operator Relationship Specialty Start Date End Date Freddy Nava MD [address] [place] [address] PCP - General 06/02/13 Diamond Saw Operator Relationship Specialty Start Date End Date Freddy Nava MD [address] [place], [place] 776331 PCP - General 06/02/13 Diamond Saw Operator Relationship Specialty Start Date End Date Freddy Nava MD [address] [place] [address] PCP - General 06/02/13 Diamond Saw Operator Relationship Specialty Start Date End Date Freddy Nava MD [address] [place] [address] PCP - General 06/02/13 Diamond Saw Operator Relationship Specialty Start Date End Date Freddy Nava MD [address] [place] [address] PCP - General 06/02/13 Diamond Saw Operator Relationship Specialty Start Date End Date Freddy Nava MD [address] [place] [address] PCP - General 06/02/13 Diamond Saw Operator Relationship Specialty Start Date End Date Freddy Nava MD [address] [place] [address] PCP - General 06/02/13 Diamond Saw Operator Relationship Specialty Start Date End Date Freddy Nava MD [address] [place] [address] PCP - General 06/02/13 Diamond Saw Operator Relationship Specialty Start Date End Date Freddy Nava MD [address] [place], [place] 181281 PCP - General 06/02/13 Diamond Saw Operator Relationship Specialty Start Date End Date Freddy Nava MD [address] [place], [place] 780441 PCP - General 06/02/13 Diamond Saw Operator Relationship Specialty Start Date End Date Freddy Nava MD [address] [place], [place] 738771 PCP - General 06/02/13 Diamond Saw Operator Relationship Specialty Start Date End Date Freddy Nava MD [address] [place], [place] 931441 PCP - General 06/02/13 Diamond Saw Operator Relationship Specialty Start Date End Date Freddy Nava MD [address] [place] [address] PCP - General 10/16/15 Diamond Saw Operator Relationship Specialty Start Date End Date Freddy Nava MD [address] [place] [address] PCP - General 06/02/13 Diamond Saw Operator Relationship Specialty Start Date End Date Freddy Nava MD [address] [place], [place] 548931 PCP - General 06/02/13 Diamond Saw Operator Relationship Specialty Start Date End Date Freddy Nava MD [address] [place], [place] 220841 PCP - General 06/02/13 Diamond Saw Operator Relationship Specialty Start Date End Date Freddy Nava MD [address] [place], [place] [id number] PCP - General 06/02/13 Diamond Saw Operator Relationship Specialty Start Date End Date Freddy Nava MD [address] [place], [place] 827081 PCP - General 06/02/13 Diamond Saw Operator Relationship Specialty Start Date End Date Freddy Nava MD [address] [place] [address] PCP - General 10/16/15 Diamond Saw Operator Relationship Specialty Start Date End Date Freddy Nava MD [address] [place] [address] PCP - General 06/02/13 Tracie Urbina PAPER [employer] AND VICE DETECTIVE [address] [place] [address] Medicaid Collection Specialist Family Medicine 04/03/24 Yarelis Adkins PAPER [employer] AND VICE DETECTIVE [address] [place] [address] Medicaid Collection Specialist Family Medicine 04/03/24 Diamond Saw Operator Relationship Specialty Start Date End Date Freddy Nava MD [address] [place] [address] PCP - General 06/02/13 Tracie Urbina, PAPER [employer].NARC[employer]ICS AND VICE DETECTIVE [address] [place] [address] Medicaid Collection Specialist Family Medicine 04/03/24 Yarelis Adkins PAPER [employer].NARCOTICS AND VICE DETECTIVE [address] [facility] [place] [address] Medicaid Collection Specialist Family Medicine 04/03/24 Diamond Saw Operator Relationship Specialty Start Date End Date Freddy Nava MD [address] [place] [address] PCP - General 06/02/13 Tracie Urbina APRN.NARCOTICS AND VICE DETECTIVE [address] [facility] [place] [address] Medicaid Collection Specialist Family Medicine 04/03/24 Yarelis Adkins PAPER [employer] AND VICE DETECTIVE [address] [place] [address] Medicaid Collection Specialist Family Medicine 04/03/24 Diamond Saw Operator Relationship Specialty Start Date End Date Freddy Nava MD [address] [facility] [place] [address] PCP - General 06/02/13 Tracie Urbina PAPER [employer] MAKER.NARCOTICS AND VICE DETECTIVE [address] [facility] [place] [address] Medicaid Collection Specialist Family Medicine 04/03/24 Yarelis Adkins PAPER [employer] MA[employer].NARCOTICS AND VICE DETECTIVE [address] [facility] [place] [address] Medicaid Collection Specialist Family Medicine 04/03/24 Diamond Saw Operator Relationship Specialty Start Date End Date Freddy Nava MD [address] [place] [address] PCP - General 06/02/13 Tracie Urbina PAPER [employer] MAKER.NARCOTICS AND VICE DETECTIVE [address] [facility] [place] [address] Medicaid Collection Specialist Family Medicine 04/03/24 Yarelis Adkins PAPER [employer].NARCOTICS AND VICE DETECTIVE [address] [facility] [place] [address] Medicaid Collection Specialist Family Medicine 04/03/24 Diamond Saw Operator Relationship Specialty Start Date End Date Freddy Nava MD [address] [place] [address] PCP - General 06/02/13 Tracie Urbina APRN.NARCOTICS AND VICE DETECTIVE [address] [facility] [place] [address] Medicaid Collection Specialist Family Medicine 04/03/24 Yarelis Adkins PAPER [employer] MAKER.NARCOTICS AND VICE DETECTIVE [address] [facility] [place] [address] Medicaid Collection Specialist Family Medicine 04/03/24 Diamond Saw Operator Relationship Specialty Start Date End Date Freddy Nava MD [address] [facility] [place] [address] PCP - General 06/02/13 Tracie Urbina PAPER [employer].NARCOT[employer] AND VICE DETECTIVE [address] [place] [address] Medicaid Collection Specialist Family Medicine 04/03/24 Yarelis Adkins PAPER [employer].NARCOTICS AND VICE DETECTIVE [address] [facility] [place] [address] Medicaid [facility] 04/03/24 Diamond Saw Operator Relationship Specialty Start Date End Date Freddy Nava MD [address] [place] [address] PCP - General 06/02/13 Tracie Urbina PAPER [employer].NARCOTICS AND VICE DETECTIVE [address] [place] [address] Medicaid Collection Specialist Family Medicine 04/03/24 Yarelis Adkins PAPER [employer] MAKER.NARCOTICS AND VICE DETECTIVE [address] [place] [address] [facility] 04/03/24 Diamond Saw Operator Relationship Specialty Start Date End Date Freddy Nava MD [address] [facility] [place] [address] PCP - General 06/02/13 Tracie Urbina APRN.NARCOTICS AND VICE DETECTIVE [address] [facility] [place] [address] [facility] 04/03/24 Yarelis Adkins APRN.NARCOTICS AND VICE DETECTIVE [address] [facility] [place] [address] [facility] 04/03/24 Diamond Saw Operator Relationship Specialty Start Date End Date Freddy Nava MD [address] [place] [address] PCP - General 06/02/13 Tracie Urbina APRN.NARCOTICS AND VICE DETECTIVE [address] [facility] [place] [address] [facility] 04/03/24 Yarelis Adkins APRN.NARCOTICS AND VICE DETECTIVE [address] [facility] [place] [address] [facility] 04/03/24 Diamond Saw Operator Relationship Specialty Start Date End Date Freddy Nava MD [address] [place] [address] PCP - General 06/02/13 Tracie Urbina APRN.NARCOTICS AND VICE DETECTIVE [address] [place] [address] [facility] 04/03/24 Yarelis Adkins APRN.NARCOTICS AND VICE DETECTIVE [address] [facility] [place] [address] Medicaid [facility] 04/03[facility] Diamond Saw Operator Relationship Specialty Start Date End Date Freddy Nava MD [address] [facility] [place] [address] PCP - General 06/02/13 Tracie Urbina PAPER [employer] MAKER.NARCOTICS AND VICE DETECTIVE [address] [facility] [place] [address] Medicaid Collection Specialist [facility] 04/03/24 Yarelis Adkins PAPER [employer]E MAKER.NARCOTICS AND VICE DETECTIVE [address] [facility] [place] [address] Medicaid [facility] 04/03/24 Diamond Saw Operator Relationship Specialty Start Date End Date Freddy Nava MD [address] [facility] [place] [address] PCP - General 06/02/13 Tracie Urbnia, PAPER [employer]E MAKER.NARCOTICS AND VICE DETECTIVE [address] [facility] [place] [address] Medicaid [facility] 04/03/24 Yarelis Adkins PAPER [employer]E MAKER.NARCOTICS AND VICE DETECTIVE [address] [facility] [place] [address] Medicaid [facility] 04/03/24 Diamond Saw Operator Relationship Specialty Start Date End Date Freddy Nava MD [address] [facility] [place] [address] PCP - General 06/02/13 Tracie Urbina, PAPER [employer]E MAKER.NARCOTICS AND VICE DETECTIVE [address] [facility] [place] [address] [facility] 04/03/24 Yarelis Adkins PAPER [employer]E MAKER.NARCOTICS AND VICE DETECTIVE [address] [place], [place] [address] [phone] [facility] 04/03/24 Diamond Saw Operator Relationship Specialty Start Date End Date Freddy Nava MD [address] [place], [place] [address] PCP - General 06/02/13 Tracie Urbina, PAPER [employer]E MAKER.NARCOTICS AND VICE DETECTIVE [address] [place] [address] [facility] 04/03/24 Yarelis Adkins PAPER [employer]E MAKER.NARCOTICS AND VICE DETECTIVE [address] [place] [address] [facility] 04/03/24 Diamond Saw Operator Relationship Specialty Start Date End Date Freddy Nava MD [address] [place] [address] PCP - General 06/02/13 Tracie Urbina, PAPER [employer]E MAKER.NARCOTICS AND VICE DETECTIVE [address] [place] [address] [facility] 04/03/24 Yarelis Adkins PAPER [employer]E MAKER.NARCOTICS AND VICE DETECTIVE [address] [place] [address] [facility] 04/03/24 Team Status: Active Member Role Status Dates Dr. Freddy Nava MD Primary Care Provider Active Team Status: Inactive Member Role Status Dates Dr. Freddy Nava MD Primary Care Provider Active Start: March 07, 2024 End: March 07, 2024 AMRIO Green Attending Provider Active Start: March 07, 2024 End: March 07, 2024 MARIO Green Referring Provider Active Start: March 07, 2024 End: March 07, 2024 Team Status: Inactive Member Role Status Dates Dr. Freddy Nava MD Primary Care Provider Active Start: March 14, 2024 End: March 14, 2024 Dr. Freddy Nava MD Referring Provider Active Start: March 14, 2024 End: March 14, 2024 Dr. Armen Sibley DO Attending Provider Active S tart: March 14, 2024 End: March 14, 2024 Team Status: Inactive Member Role Status Dates Dr. Freddy Nava MD Primary Care Provider Active Start: March 31, 2024 End: March 31, 2024 Dr. Freddy Nava MD Referring Provider Active Start: March 31, 2024 End: March 31, 2024 TAMIA Posey Attending Provider Active Start: March 31, 2024 End: March 31, 2024 Team Status: Inactive Member Role Status Dates Dr. Freddy Nava MD Primary Care Provider Active Start: March 31, 2024 End: March 31, 2024 Dr. Armen Sibley DO Attending Provider Active S tart: March 31, 2024 End: March 31, 2024 Team Status: Inactive Member Role Status Dates Dr. Freddy Nava MD Primary Care Provider Active Start: May 05, 2024 End: May 05, 2024 Dr. Freddy Nava MD Referring Provider Active Start: May 05, 2024 End: May 05, 2024 Dr. Isael Anton MD Attending Provider Active Start: May 05, 2024 End: May 05, 2024 Team Status: Inactive Member Role Status Dates Dr. Freddy Nava MD Primary Care Provider Active Start: May 09, 2024 End: May 09, 2024 Dr. Freddy Nava MD Referring Provider Active Start: May 09, 2024 End: May 09, 2024 ESTEFANIA Elmore Attending Provider Active Start: May 09, 2024 End: May 09, 2024 Team Status: Inactive Member Role Status Dates Dr. Freddy Nava MD Primary Care Provider Active Start: May 12, 2024 End: May 12, 2024 Dr. Herbert Macias DO Attending Provider Active Start: May 12, 2024 End: May 12, 2024 Dr. Herbert Macias DO Emergency Provider Active Start: May 12, 2024 End: May 12, 2024 Team Status: Inactive Member Role Status Dates Dr. Freddy Nava MD Primary Care Provider Active Start: May 31, 2024 End: May 31, 2024 Dr. Bhupinder Fritz DO Attending Provider Active Start: May 31, 2024 End: May 31, 2024 Dr. Bhupinder Fritz DO Emergency Provider Active Start: May 31, 2024 End: May 31, 2024 Team Status: Inactive Member Role Status Dates Dr. Freddy Nava MD Primary Care Provider Active Start: June 13, 2024 End: June 13, 2024 Dr. Bhupinder Fritz DO Attending Provider Active Start: June 13, 2024 End: June 13, 2024 Dr. Bhupinder Fritz DO Emergency Provider Active Start: June 13, 2024 End: June 13, 2024 Team Status: Inactive Member Role Status Dates Dr. Freddy Nava MD Primary Care Provider Active Start: June 19, 2024 End: June 19, 2024 Dr. Freddy Nava MD Referring Provider Active Start: June 19, 2024 End: June 19, 2024 Dr. Ti Martinez DO Attending Provider Active Start: June 19, 2024 End: June 19, 2024 Team Status: Active Member Role Status Dates Dr. Freddy Nava MD Primary Care Provider Active Start: June 19, 2024 Dr. Freddy Nava MD Referring Provider Active Start: June 19, 2024 Dr. Ti Martinez DO Attending Provider Active Start: June 19, 2024 Dr. Ti Martinez DO Other Provider Active St art: June 19, 2024 Team Status: Inactive Member Role Status Dates Dr. Freddy Nava MD Primary Care Provider Active Start: June 20, 2024 End: June 20, 2024 Dr. Freddy Nava MD Referring Provider Active Start: June 20, 2024 End: June 20, 2024 ESTEFANIA Elmore Attending Provider Active Start: June 20, 2024 End: June 20, 2024 Team Status: Inactive Member Role Status Dates Dr. Freddy Nava MD Primary Care Provider Active Start: June 27, 2024 End: June 27, 2024 Dr. Freddy Nava MD Referring Provider Active Start: June 27, 2024 End: June 27, 2024 TAMIA Posey Attending Provider Active Start: June 27, 2024 End: June 27, 2024 Team Status: Inactive Member Role Status Dates Dr. Freddy Nava MD Primary Care Provider Active Start: July 03, 2024 End: July 04, 2024 Dr. Bhupinder Fritz DO Emergency Provider Active Start: July 03, 2024 End: July 04, 2024 Team Status: Active Member Role Status Dates Dr. Freddy Nava MD Primary Care Provider Active Start: July 05, 2024 Dr. Freddy Nava MD Attending Provider Active Start: July 05, 2024 Dr. Freddy Nava MD Referring Provider Active Start: July 05, 2024 Team Status: Inactive Member Role Status Dates Dr. Freddy Nava MD Primary Care Provider Active Start: July 06, 2024 End: July 07, 2024 Dr. Bhupinder Fritz DO Emergency Provider Active Start: July 06, 2024 End: July 07, 2024 Team Status: Inactive Member Role Status Dates Dr. Freddy Nava MD Primary Care Provider Active Start: July 05, 2024 End: July 05, 2024 Dr. Freddy Nava MD Attending Provider Active Start: July 05, 2024 End: July 05, 2024 Dr. Freddy Nava MD Referring Provider Active Start: July 05, 2024 End: July 05, 2024 Team Status: Inactive Member Role Status Dates Dr. Freddy Nava MD Primary Care Provider Active Start: July 07, 2024 End: July 07, 2024 Dr. Freddy Nava MD Referring Provider Active Start: July 07, 2024 End: July 07, 2024 TAMIA Posey Attending Provider Active Start: July 07, 2024 End: July 07, 2024 Team Status: Active Member Role Status Dates Dr. Freddy Nava MD Primary Care Provider Active Start: July 07, 2024 ESTEFANIA Elmore Attending Provider Active Start: July 07, 2024 ESTEFANIA Elmore Referring Provider Active Start: July 07, 2024 Team Status: Inactive Member Role Status Dates Dr. Freddy Nava MD Primary Care Provider Active Start: July 03, 2024 End: July 04, 2024 Dr. Bhupinder Fritz DO Attending Provider Active Start: July 03, 2024 End: July 04, 2024 Dr. Bhupinder Fritz DO Emergency Provider Active Start: July 03, 2024 End: July 04, 2024 Team Status: Inactive Member Role Status Dates Dr. Freddy Nava MD Primary Care Provider Active Start: July 06, 2024 End: July 07, 2024 Dr. Bhupinder Fritz DO Attending Provider Active Start: July 06, 2024 End: July 07, 2024 Dr. Bhupinder Fritz DO Emergency Provider Active Start: July 06, 2024 End: July 07, 2024 Team Status: Inactive Member Role Status Dates Dr. Freddy Nava MD Primary Care Provider Active Start: July 07, 2024 End: July 07, 2024 ESTEFANIA Elmore Attending Provider Active Start: July 07, 2024 End: July 07, 2024 ESTEFANIA Elmore Referring Provider Active Start: July 07, 2024 End: July 07, 2024 Diamond Saw Operator Relationship Specialty Start Date End Date Freddy Nava MD [address] [place] [address] PCP - General 06/02/13 Tracie Urbina, PAPER [employer]E MAKER.NARCOTICS AND VICE DETECTIVE [address] [place] [address] [facility] 04/03/24 Yarelis Adkins PAPER CONE MAKER.NARCOTICS AND VICE DETECTIVE [address] [facility], [place] [address] Medicaid [facility] 04/03/24 Diamond Saw Operator Relationship Specialty Start Date End Date Freddy Nava MD [address] [place], [place] [address] PCP - General 06/02/13 Tracie Urbina, PAPER [employer]E MAKER.NARCOTICS AND VICE DETECTIVE [address] [place] [address] [facility] 04/03/24 Yarelis Adkins, PAPER [employer]E MAKER.NARCOTICS AND VICE DETECTIVE [address] [facility] [place] [address] [facility] 04/03/24 Diamond Saw Operator Relationship Specialty Start Date End Date Freddy Nava MD [address] [place], [place] [address] PCP - General 06/02/13 Tracie Urbina, PAPER [employer]E MAKER.NARCOTICS AND VICE DETECTIVE [address] [place], [place] [address] [facility] 04/03/24 Yarelis Adkins, PAPER [employer]E MAKER.NARCOTICS AND VICE DETECTIVE [address] [place], [place] [id number] [facility] 04/03/24 Team Status: Inactive Member Role Status Dates Dr. Freddy Nava MD Primary Care Provider Active Start: August 02, 2024 End: August 02, 2024 TAMIA Posey Attending Provider Active Start: August 02, 2024 End: August 02, 2024 TAMIA Posey Referring Provider Active Start: August 02, 2024 End: August 02, 2024 Team Status: Inactive Member Role Status Dates Dr. Freddy Nava MD Primary Care Provider Active Start: August 02, 2024 End: August 02, 2024 Dr. Freddy Nava MD Referring Provider Active Start: August 02, 2024 End: August 02, 2024 Dr. Nabeel Rossi MD Attending Provider Active S tart: August 02, 2024 End: August 02, 2024 Diamond Saw Operator Relationship Specialty Start Date End Date Freddy Nava MD [address] [place], [place] [id number] PCP - General 06/02/13 Tracie Urbina PAPER [employer]E MAKER.NARCOTICS AND VICE DETECTIVE [address] [facility] [place] [address] Medicaid Collection Specialist Family Medicine 04/03/24 Yarelis Adkins APRN.NARCOTICS AND VICE DETECTIVE [address] [facility] [place] [address] Medicaid Collection Specialist Family Medicine 04/03/24 Diamond Saw Operator Relationship Specialty Start Date End Date Freddy Nava MD [address] [facility] [place] [address] PCP - General 06/02/13 Tracie Urbina APRN.NARCOTICS AND VICE DETECTIVE [address] [facility] [place] [address] Medicaid Collection Specialist Family Medicine 04/03/24 Yarelis Adkins PAPER [employer]E MAKER.NARCOTICS AND VICE DETECTIVE [address] [facility] [place] [address] Medicaid [facility] 04/03/24 Diamond Saw Operator Relationship Specialty Start Date End Date Freddy Nava MD [address] [facility] [place] [address] PCP - General 06/02/13 Tracie Urbina PAPER [employer] MAKER.NARCOTICS AND VICE DETECTIVE [address] [facility] [place] [address] Medicaid Collection Specialist Family Medicine 04/03/24 Yarelis Adkins APRN.NARCOTICS AND VICE DETECTIVE [address] [facility] [place] [address] Medicaid Collection Specialist Family Medicine 04/03/24 Diamond Saw Operator Relationship Specialty Start Date End Date Freddy Nava MD [address] [facility] [place] [address] PCP - General 06/02/13 Tracie Urbina APRN.NARCOTICS AND VICE DETECTIVE [address] [facility] [place] [address] Medicaid Collection Specialist Family Medicine 04/03/24 Yarelis Adkins APRN.NARCOTICS AND VICE DETECTIVE [address] [facility] [place] [address] Medicaid Collection Specialist [facility] 04/03/24 Diamond Saw Operator Relationship Specialty Start Date End Date Freddy Nava MD [address] [facility] [place] [address] PCP - General 06/02/13 Tracie Urbina APRN.NARCOTICS AND VICE DETECTIVE [address] [facility] [place] [address] Medicaid Collection Specialist [facility] 04/03/24 Yarelis Adkins APRN.NARCOTICS AND VICE DETECTIVE [address] [facility] [place] [address] Medicaid [facility] 04/03/24 Diamond Saw Operator Relationship Specialty Start Date End Date Freddy Nava MD [address] [facility] [place] [address] PCP - General 06/02/13 Tracie Urbina APRN.NARCOTICS AND VICE DETECTIVE [address] [facility] [place] [address] Medicaid Collection Specialist [facility] 04/03/24 Yarelis Adkins APRN.NARCOTICS AND VICE DETECTIVE [address] [facility] [place] [address] Medicaid [facility] 04/03/24 Diamond Saw Operator Relationship Specialty Start Date End Date Freddy Nava MD [address] [place], [place] [address] PCP - General 10/16/15 Diamond Saw Operator Relationship Specialty Start Date End Date Freddy Nava MD [address] [place], [place] [address] PCP - General 06/02/13 Tracie Urbina, PAPER CONE MAKER.NARCOTICS AND VICE DETECTIVE [address] [place], [place] [address] Medicaid [facility] 04/03/24 Yarelis Adkins, PAPER CONE MAKER.NARCOTICS AND VICE DETECTIVE [address] [place] [address] [facility] 04/03/24 Diamond Saw Operator Relationship Specialty Start Date End Date Freddy Nava MD [address] [place], [place] [address] PCP - General 06/02/13 Tracie Urbina, PAPER CONE MAKER.NARCOTICS AND VICE DETECTIVE [address] [place] [address] Medicaid [facility] 04/03/24 Yarelis Adkins, PAPER [employer]E MAKER.NARCOTICS AND VICE DETECTIVE [address] [place], [place] [address] [phone] [facility] 04/03/24 Team Status: Active Member Role/Relationship Status Dates Dr. Freddy Nava MD Primary Care Provider Active Team Status: Inactive Member Role/Relationship Status Dates Dr. Freddy Nava MD Primary Care Provider Active Start: August 02, 2024 End: August 02, 2024 TAMIA Posey Attending Provider Active Start: August 02, 2024 End: August 02, 2024 TAMIA Posey Referring Provider Active Start: August 02, 2024 End: August 02, 2024 Team Status: Inactive Member Role/Relationship Status Dates Dr. Freddy Nava MD Primary Care Provider Active Start: August 02, 2024 End: August 02, 2024 Dr. Freddy Nava MD Referring Provider Active Start: August 02, 2024 End: August 02, 2024 Dr. Nabeel Rossi MD Attending Provider Active S tart: August 02, 2024 End: August 02, 2024 Team Status: Inactive Member Role/Relationship Status Dates Dr. Freddy Nava MD Primary Care Provider Active Start: August 23, 2024 End: August 23, 2024 Dr. Freddy Nava MD Referring Provider Active Start: August 23, 2024 End: August 23, 2024 Dr. Jb Mccallum MD Attending Provider Active Start: August 23, 2024 End: August 23, 2024 Team Status: Inactive Member Role/Relationship Status Dates Dr. Freddy Nava MD Primary Care Provider Active Start: October 24, 2024 Dr. Vera Mcallister MD Attending Provider Active Start: October 24, 2024 Team Status: Inactive Member Role/Relationship Status Dates Dr. Freddy Nava MD Primary Care Provider Active Start: November 22, 2024 End: November 22, 2024 Dr. Freddy Nava MD Referring Provider Active Start: November 22, 2024 End: November 22, 2024 ESTEFANIA Elmore Attending Provider Active Start: November 22, 2024 End: November 22, 2024 Team Status: Active Member Role/Relationship Status Dates Dr. Freddy Nava MD Primary Care Provider Active Start: November 23, 2024 Dr. Jb Mccallum MD Attending Provider Active Start: November 23, 2024 Dr. Jb Mccallum MD Referring Provider Active Start: November 23, 2024 Team Status: Inactive Member Role/Relationship Status Dates Dr. Freddy Nava MD Primary Care Provider Active Start: November 27, 2024 End: November 27, 2024 Dr. Freddy Nava MD Referring Provider Active Start: November 27, 2024 End: November 27, 2024 Dr. Jb Mccallum MD Attending Provider Active Start: November 27, 2024 End: November 27, 2024 Team Status: Inactive Member Role/Relationship Status Dates Dr. Freddy Nava MD Primary Care Provider Active Start: August 23, 2024 End: August 23, 2024 Dr. Freddy Nava MD Referring Provider Active Start: August 23, 2024 End: August 23, 2024 Dr. Jb Mccallum MD Attending Provider Active Start: August 23, 2024 End: August 23, 2024 Team Status: Inactive Member Role/Relationship Status Dates Dr. Freddy Nava MD Primary Care Provider Active Start: October 24, 2024 Dr. Vera Mcallister MD Attending Provider Active Start: October 24, 2024 Team Status: Inactive Member Role/Relationship Status Dates Dr. Freddy Nava MD Primary Care Provider Active Start: November 22, 2024 End: November 22, 2024 Dr. Freddy Nava MD Referring Provider Active Start: November 22, 2024 End: November 22, 2024 ESTEFANIA Elmore Attending Provider Active Start: November 22, 2024 End: November 22, 2024 Team Status: Inactive Member Role/Relationship Status Dates Dr. Freddy Nava MD Primary Care Provider Active Start: November 23, 2024 End: November 23, 2024 Dr. Jb Mccallum MD Attending Provider Active Start: November 23, 2024 End: November 23, 2024 Dr. Jb Mccallum MD Referring Provider Active Start: November 23, 2024 End: November 23, 2024 Team Status: Inactive Member Role/Relationship Status Dates Dr. Freddy Nava MD Primary Care Provider Active Start: November 27, 2024 End: November 27, 2024 Dr. Freddy Nava MD Referring Provider Active Start: November 27, 2024 End: November 27, 2024 Dr. Jb Mccallum MD Attending Provider Active Start: November 27, 2024 End: November 27, 2024 Reason for Visit (unrecogniz ed section and content) Reason Comments Radiology CT Specialty Diagnoses / Procedures Referred By Contac t Referred To Contact CT IMAGING Diagnoses Left lower quadrant abdominal pain Procedures CT ABD/PEL W IVCON CT ABD & PELVIS W/CONTRAST Freddy Nava MD [address] [place] [address] Ct Imaging Referral ID Status Reason Start Date Expiration Date V isits Requested Visits Authorized [id number] Closed Auto-Generat ed Referral Patient Cleared - [...] US FEMALE PELVIS TRANSVAG US TRANSVAGINAL Freddy Nava MD [address] [place] [address] Us Imaging Referral ID Status Reason Start Date Expiration Date V isits Requested Visits Authorized [id number] Closed Auto-Generate d Referral 01/01/2022 01/31/2023 1 [...] Prior Auth Reason Comments Insurance Authorization estrogel Reason Comments Appointment Reason Comments Leg Cramps cramping Reason Comments Fatigue Edema Legs swollen this we ek. Specialty Diagnoses / Procedures Referred By Contac t Referred To Contact US IMAGING Diagnoses Elevated liver enzymes Procedures US ABD RIGHT UPPER QUADRANT US ABDOMINAL REAL TIME W/IMAGE LIMITED Freddy Nava MD [address] [place] [address] [place] [address] Referral ID Status Reason Start Date Expiration Date V isits Requested Visits Authorized [id number] Closed Auto-Generate d Referral 06/18/2023 07/17/2024 1 1 Reason Comments Refill Request Reason Comments Follow Up Reason Comments Consult Reason Comments Hernia Reason Comments Blood Sugar Reading Reason Comments Consult Umbilical hernia Specialty Diagnoses / Procedures Referred By Contac t Referred To Contact General Surgery Diagnoses Umbilical hernia without obstruction and without gangrene Procedures CONSULT TO GENERAL SURGERY OFFICE/OUTPATIENT [facility] 60 MINUTES Chilo Johnson MD [address] [place] [address] Referral ID Status Reason Start Date Expiration Date V isits Requested Visits Authorized [id number] Closed PCP Requested Referral 09/13/2023 09/12/2024 1 1 Reason Comments Radiology US Specialty Diagnoses / Procedures Referred By Contac t Referred To Contact US IMAGING Diagnoses Suprapubic discomfort Procedures US FEMALE PELVIS TRANSVAG US TRANSVAGINAL Freddy Nava MD [address] [place] [address] [place] [address] Referral ID Status Reason Start Date Expiration Date V isits Requested Visits Authorized [id number] Closed Auto-Generate d Referral 09/27/2023 10/26/2024 1 1 Reason Comments Abdominal Pain Fatigue Reason Comments Radiology CT Specialty Diagnoses / Procedures Referred By Contac t Referred To Contact CT IMAGING Diagnoses Microscopic hematuria Procedures CT UROGRAM WO/W IVCON CT ABD & PELVIS W/WO CONTRST 1+ BODY Yarelis Parmar, SHITAL.NARCOTICS AND VICE DETECTIVE [address] [place] [address] [place] [address] Referral ID Status Reason Start Date Expiration Date V isits Requested Visits Authorized [id number] Closed Auto-Generate d Referral 11/03/2023 12/18/2023 1 1 Reason Comments Yearly Exam Reason Comments Results Reason Comments Insurance Authorization Nizatidine Reason Comments Recheck Reason Comments New Patient Evaluation Specialty Diagnoses / Procedures Referred By Contac t Referred To Contact Neurology Diagnoses Nocturnal oxygen desaturation ANDRESSA (obstructive sleep apnea) Arnold-Chiari deformity (HCC) Paresthesia Procedures CONSULT TO NEUROLOGY OFFICE/OUTPATIENT [facility] 60 MINUTES Freddy Nava MD [address] [place] [address] Referral ID Status Reason Start Date Expiration Date V isits Requested Visits Authorized [id number] Closed PCP Requested Referral 07/07/2023 07/06/2024 1 1 Reason Onset Date Comments Refill Request 02/02/2024 Reason Comments Cough Reason Comments Faxed to Central [facility] PET S can Unit Reason Comments New Patient Visit Reason Onset Date Comments Refill Request 05/12/2024 Reason Comments rx requested Reason Comments Swelling Reason Comments Medication Problem Reason Comments Recheck Patient requested re check Reason Comments Acute Visit Patient requested so niko follow up Reason Comments Recheck Patient my chart vis it made for recheck. Reason Comments Results Erroneous encounter-disregard Reason Comments flushing ER gave her benedryl and pepcid thinking allergic reaction. CT scan at [facility] today showing infiltrate. Reason Comments Low Blood Sugar Specialty Diagnoses / Procedures Referred By Contac t Referred To Contact Endocrinology Diagnoses Hypoglycemia Controlled type 2 diabetes mellitus without complication, unspecified whether salvage determiner insulin use (HCC) Procedures CONSULT TO ENDOCRINOLOGY OFFICE/OUTPATIENT [facility] MDM 60 MINUTES Freddy Nava MD [address] [place] [address] Phone: tel: fax: Referral ID Status Reason Start Date Expiration Date V isits Requested Visits Authorized [id number] Closed PCP Requested Referral 06/12/2024 06/12/2025 1 1 Reason Comments Reflux Reason Comments Liver Disease Specialty Diagnoses / Procedures Referred By Contac t Referred To Contact Diagnoses Fatty liver Portal hypertensive gastropathy (HCC) Procedures CONSULT TO HEPATOLOGY OFFICE/OUTPATIENT [facility] 60 MINUTES Freddy Nava MD [address] [place] [address] Phone: tel: fax: Referral ID Status Reason Start Date Expiration Date V isits Requested Visits Authorized [id number] Closed PCP Requested Referral 06/22/2024 06/22/2025 1 1 Reason Comments Low Blood Sugar Non-insulin Dependent Diabetes Mellitus Reason Comments GERD Reason Comments upcoming surgery Goals (unrecognized section and content) Goals may be documented in a n alternate sectionGoals may be documented in an alternate sectionGoals may be documented in an alternate sectionGoals may be documented in an alternate sectionGoals may be documented in an alternate sectionGoals may be documented in an alternate sectionGoals may be documented in an alternate sectionGoals may be documented in an alternate sectionGoals may be documented in an alternate sectionGoals may be documented in an alternate section FOR RECORDS PERTAINING TO PATIENTS WHO ARE [...] BE BASED ON THE PRIMARY CLINICAL RECORDS. [facility] [employer] [facility]. provides no warranty or guarantee of the accuracy or completeness of information in this document.
--- NOTE | 2024-12-24 19:55 | RAD_ITS ---
PROCEDURE: HAND MIN 3 VIEWS 12/24/2024 REASON FOR EXAM: QUALITY LEAD LACERATIONS TECHNIQUE: Procedure Code: DINORAH Modality: DX Procedure: HAND MIN 3 VIEWS Laterality: Left COMPARISON: None FINDINGS: Bones: No fracture Joints: Mild joint space narrowing and minimal marginal spurring of the 1st interphalangeal joint and the distal interphalangeal joints of the 2nd, 3rd and 4th digits. Minimal marginal spurring between the 1st metacarpal and the trapezium Soft tissues: Soft tissues are unremarkable. Other: No foreign body RAD/Hand Min 3 Views IMPRESSION: No acute abnormality Reading Location: [id number]
[2024-12-24] MEDS: Lidocaine 1% (20 ml mdv) 20 ML Vial INFILT (20:13)
[2024-12-24 20:44] VITALS: BP 152/99; PULSE 98; RESP 16; TEMP 36.6; O2SAT 99
== END 2024-12-24 20:44 | disposition home or self-care (01) ==
PROVIDERS: Emergency Provider Emergency Medicine; PCP Family Medicine; Visit Provider Emergency Medicine
DX: S61.313A Laceration without foreign body of left middle finger with damage to nail, initial encounter (principal); J44.9 Chronic obstructive pulmonary disease, unspecified; E11.9 Type 2 diabetes mellitus without complications; S61.317A Laceration without foreign body of left little finger with damage to nail, initial encounter; W29.3XXA Contact with powered garden and outdoor hand tools and machinery, initial encounter; Y93.H2 Activity, gardening and landscaping; I10 Essential (primary) hypertension; E03.9 Hypothyroidism, unspecified; Z79.890 Hormone replacement therapy; Z79.899 Other long term (current) drug therapy
CPT/HCPCS: 73130; 99282

== ENCOUNTER 2025-02-06 18:39 | Emergency (ER) | payer MEDICAID, SELFPAY ==
[2025-02-06 18:40] VITALS: BP 198/100; PULSE 126; RESP 16; TEMP 36.6; O2SAT 96; BMI 39.8
--- NOTE | 2025-02-06 18:46 | EKG12_ITS ---
Test Reason : DYSRHYTHMIA Blood Pressure : */* mmHG Vent. Rate : 105 BPM Atrial Rate : 105 BPM P-R Int : 140 ms QRS Dur : 90 ms QT Int : 332 ms P-R-T Axes : 56 68 32 degrees QTcB Int : 438 ms Sinus tachycardia Nonspecific ST abnormality Abnormal ECG Confirmed by ARYA HARRIS, JUAN ([id number]), order editor DAVIDSON HENDRICKS ([id number]) on 02/08/2025 9:58:06 AM Referred By: Confirmed By: JUAN KOENIG MD
[2025-02-06 18:59] VITALS: O2SAT 98
--- NOTE | 2025-02-06 19:00 | RAD_ITS ---
PROCEDURE: CHEST PA AND LATERAL 02/06/2025 REASON FOR EXAM: CHEST PAIN TECHNIQUE: Procedure Code: RADCXR Modality: DX Procedure: CHEST PA AND LATERAL COMPARISON: 05/31/2024 FINDINGS: LUNGS AND PLEURA: The lungs are clear. No pleural effusion or pneumothorax. HEART AND MEDIASTINUM: The heart size and mediastinal contours are normal. AORTA: Mildly calcified aortic arch. BONES: No acute osseous abnormality. RAD/Chest PA and Lateral IMPRESSION: NO ACUTE FINDINGS. Reading Location: [id number]
--- NOTE | 2025-02-06 19:05 | EDS_ITS ---
HPI History of Present Illness Chief Complaint: Palpitations Informant: patient Onset/Context/Timing Onset: Today Activity at onset: sudden Timing: Intermittent Quality: Positive for Burning Location: Substernal Current Severity: Mild Maximum Severity: Mild Worsened By: Nothing Relieved By: Nothing Associated Symptoms: Positive for Palpitations; Negative for Nausea, Vomiting, Diaphoresis, Dyspnea, Cough, Fever, Lightheadedness or Acid Reflux Narrative Narrative: 59-year-old female history of prior SVT, prediabetes on no meds, factor V Leiden on no anticoagulants and COPD. States that she was at home around 5:00 patient accelerated heart rate. Did Valsalva maneuver and heart rate slowed down. Denies any chest pain. Says she does feel stressed. Never had a DVT or PE. Never needed to be cardioverted or given adenosine. Prior Similar Symptoms: Yes Recent Illness/Hospitalization: No CVD Risk Factors: Positive for Diabetes PE Risk Factors: Negative for Recent Travel/Surgery, Recent Immobilization, Prior DVT or PE, Cancer or OCP + Smoking + >/=35 TAD Risk Factors: Negative for Marfan's Syndrome [facility] Medical History Diabetes Factor 5 Leiden mutation, heterozygous CPAP (continuous positive airway pressure) dependence Asthma COPD (chronic obstructive pulmonary disease) Shortness of breath on exertion Fatigue Nicotine dependence, cigarettes, uncomplicated Abnormal chest CT GERD (gastroesophageal reflux disease) 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 On home oxygen therapy Sleep apnea Lumbar degenerative disc disease Dominguez's cyst of knee Vitamin D deficiency Acquired hypothyroidism Essential hypertension IBS (irritable bowel syndrome) Meniere disease Depression Anxiety Hyperthyroidism Sinus tachycardia Paroxysmal SVT (supraventricular tachycardia) Premature ventricular contraction Premature atrial contractions Home Medications ?Medication ?Instructions ?Recorded ?Last Taken ?Type blood sugar diagnostic (OneTouch 06/13/24 Unknown His tory Verio test strips) blood-glucose sensor (FreeStyle 06/13/24 Unknown [facility] Faith 3 Plus Sensor device) alprazolam 1 mg tablet 1 mg PO TID PRN 06/16/24 Unk nown History dicyclomine 10 mg capsule 10 mg PO TID PRN 06/16/24 Un known History drospirenone (contraceptive) 4 mg 4 mg PO QDAY contrac eptive 06/16/24 Unknown History (28) tablet (Slynd) levothyroxine 150 mcg tablet 150 mcg PO DAILY 06/16/24 Unknown History (Synthroid) estradiol 1.25 gram/actuation 1 pump transdermal BID 0 08/23/24 Unknown History (0.06%) transdermal gel pump (EstroGel) Allergy/AdvReac Type Severity Reaction Status Date / Time amoxicillin (From Voquezna Allergy Severe Flushing, Verified 02/06/25 18:42 Triple Eric) Hives, Hypertension clarithromycin (From Allergy Severe Flushing, Verified 02/06/25 18:42 Voquezna Triple Eric) Hives, Hypertension vonoprazan (From Voquezna Allergy Severe Flushing, Verified 02/06/25 18:42 Triple Eric) Hives, Hypertension codeine Allergy Rash Verified 02/06/25 18:42 hydrocodone bitartrate (From Allergy Rash Verified 02/06/25 18:42 Vicodin) methimazole (From Tapazole) Allergy Shortness Verified 02/06/25 18:42 of breath metformin AdvReac Intermediate myalgias Verified 02/06/25 18:42 famotidine (From Pepcid) AdvReac Unknown Unknown Verified 02/06/25 18:42 estradiol (From CombiPatch) AdvReac myalgias, Verified 02/06/25 18:42 lip/mouth burn, SOB, nausea, dizziness methylprednisolone sodium AdvReac Other Verified 02/06/25 18:42 succinate (From Solu-Medrol) norethindrone (From AdvReac myalgias, Verified 02/06/25 18:42 CombiPatch) lip/mouth burn, SOB, nausea, dizziness oxycodone HCl (From Percocet) AdvReac Nausea/Vom/ Verified 02/06/25 18:42 Diarrhea cyp 2019 AdvReac Intermediate unknown Uncoded 11/27/24 14:54 Family History Father CAD (coronary artery disease) Hypertension Myocardial infarction, Onset Age: 66 Hx of CABG Colon cancer Diabetes Mother CVA (cerebral vascular accident) Diabetes Sister Thyroid disorder Surgical History Hx of radioactive iodine thyroid ablation History of left oophorectomy History of tubal ligation History of cholecystectomy Social History Smoking Status: Heavy Smoker (>10/day) alcohol intake: never substance use type: does not use caffeine: No ROS ROS ED ROS Narrative Denies recent illness Constitutional Constitutional ED: Denies chills or fever(s) Eyes Eyes: Reports none ENT ENT ED: Denies ear pain Cardiovascular Cardiovascular: Reports as per HPI, palpitations and racing heartbeat; Denies chest pain Respiratory/Chest Respiratory/Chest: Denies cough or dyspnea Gastrointestinal Gastrointestinal: Denies abdominal pain Genitourinary Genitourinary ED: Denies dysuria or hematuria Musculoskeletal Musculoskeletal: Denies arthralgias Integumentary Denies abscess Neurologic Neurologic: Denies headache(s) Psychiatric Psychiatric: Denies anxiety Endocrine Endocrinology: Denies cold intolerance Hematologic/Lymphatic Hematologic/Lymphatic: Denies easy bleeding, easy bruising or lymphadenopathy Allergic/Immunologic Allergic/Immunologic ED: Denies mouth swelling, tongue swelling or urticaria EXAM Physical Exam Narrative Exam Narrative: 59-year-old female sitting upright in bed. Vital signs are stable she is afebrile she does not look septic toxic. Does have elevated blood pressure and pulse. Pulse ox 96% on room air no signs hypoxia. H EENT exam pupils round react light. Moist mutes membranes. Neck nontender no thyromegaly. No lymphadenopathy. Lungs with auscultation bilaterally. Heart tachycardic 120 no murmur. Chest wall and ribs nontender. Abdomen soft nontender. Normal bowel sounds without peritoneal signs. Back nontender. Moving all 4 extremities. Normal flight coordinator strength. Normal dorsi plantarflexion. Normal radial pulse. Calves nontender without edema or cords. Neurologically she is awake alert. Answering questions following commands. Const Vital Signs: 02/06/25 18:40 02/06/25 18:59 02/06/25 18:59 Temperature 98 F Temperature Source Oral Pulse Rate 126 H Respiratory Rate 16 Respiratory Effort Normal Non-Labored Blood Pressure 198/100 H Blood Pressure Mean 132 Pulse Ox 96 98 Oxygen Delivery Method Room Air Room Air 02/06/25 19:39 02/06/25 19:57 02/06/25 20:08 Temperature 98 F Temperature Source Pulse Rate 91 91 93 Respiratory Rate 21 H 21 H 20 H Respiratory Effort Blood Pressure 198/100 H Blood Pressure Mean 132 Pulse Ox 97 97 97 Oxygen Delivery Method Room Air Room Air MDM MDM MDM Narrative Medical decision making narrative: 59 she is not having any chest pain. 9-year-old female history of SVT with accelerated heart rate which she brought down to the 120s with Valsalva. She be worked up for an SVT versus a cardiac event. She will undergo cardiac workup. Repeat exam at 7:55 PM patient doing well. Exam benign. Heart rate in the 90s. Clinically feels well. Went over test results. She would like to be discharged without obtaining the second troponin which I am comfortable with because her first troponin is negative and she is not really having any chest pain. She has been urinating a lot will send a UA. I will call her if the results are positive. Clinically she is doing well. History & Record Review Discussion w/independent historian: Patient and Family Additional record(s) reviewed:: Prior inpatient record, Prior outpatient record, Prior ED visit and Prior labs Lab Data Attestation: I reviewed the patient's lab results. Lab results narrative: CBC shows a white count of 14.6. H&H is 16 and 49. Platelets 293. Electrolytes show sodium 139. Gap 13. Normal BUN and creatinine of 12 and 0.8. Glucose 140. Troponin less than 6. TSH 2.89. Chest x-ray unremarkable. Urinalysis normal. No whites, reds or nitrates. No bacteria. Labs: Laboratory Results - last 24 hr 02/06/25 02/06/25 18:59 20:03 WBC 14.6 H RBC 5.21 Hgb 16.7 H Hct 49.7 H MCV 95.4 MCH 32.1 H MCHC 33.6 RDW Std Deviation 45.5 H RDW Coeff of Linette 12.9 Plt Count 293 MPV 10.0 Immature Gran % (Auto) 0.600 Neut % (Auto) 59.8 Lymph % (Auto) 29.2 [place] % (Auto) 8.5 Eos % (Auto) 1.4 Baso % (Auto) 0.5 Absolute Neuts (auto) 8.7 H Absolute Lymphs (auto) 4.26 Nucleated RBC % 0 Sodium 139 Potassium 3.6 Chloride 101 Carbon Dioxide 25.3 Anion Gap 13 BUN 12 Creatinine 0.83 Estim Creat Clear Calc 77.09 Est GFR (MDRD) Non-Af 81 BUN/Creatinine Ratio 14.3 Glucose 140 H Calcium 9.6 Troponin T High Sens < 6 TSH 2.890 Urine Color Yellow Urine Clarity Clear Urine pH 6.5 Ur Specific [place] 1.005 Urine Protein Negative Urine Glucose (UA) Normal Urine Ketones Negative Urine Occult Blood 50 H Urine Nitrite Negative Urine Bilirubin Negative Urine Urobilinogen Normal Ur Leukocyte Esterase Negative Urine RBC 0-5 SEEN Urine WBC 0-5 SEEN Ur Squamous Epith Cells 0-5 SEEN Urine Bacteria 0 SEEN Urine Mucus 0 SEEN Radiography Chest X-Ray - ED: 2 View, Read by ED Physician, Read by Radiologist, Normal, Heart, Lungs, Mediastinum, Bony Structures, No Acute Disease and Chronic Changes Diagnostic Testing: Clinical Impression(s) from Imaging Studies Chest X-Ray 02/06/25 19:00 IMPRESSION: NO ACUTE FINDINGS. Reading Location: [facility] Chest x-ray, 2 views, AP and lateral, interpreted by myself and the radiologist shows no acute abnormality. Normal cardiac silhouette. Normal mediastinum. Normal lung eric. Chronic changes. Rhythm Strip Rhythm Strip: Sinus Tach Rate: 112 Ectopy: None EKG Initial EKG: Attestation: I personally reviewed and interpreted this EKG as follows: Interpretation: Sinus Tachycardia Comments: Sinus tachycardia rate of 112. Nonspecific ST-T wave abnormalities V3 through V6. Prior EKG tracings: not available for review Discharge Plan Triage Chief Complaint: Palpitations ED Provider: Gerhard Herrera Dx/Rx/DC Orders Clinical Impression: SVT (supraventricular tachycardia), History of borderline diabetes mellitus, Hx of factor V Leiden mutation Instructions: Supraventricular Tachycardia Prescriptions: No Action levothyroxine [Synthroid] 150 mcg tablet 150 mcg PO DAILY Rx Instructions: One tab daily except 1/2 tab Sat/Sun alprazolam 1 mg tablet 1 mg PO TID PRN Patient Comments: [NO ORIGINAL SIG] dicyclomine 10 mg capsule 10 mg PO TID PRN Slynd 4 mg (28) tablet 4 mg PO QDAY Patient Comments: [NO ORIGINAL SIG] estradiol [EstroGel] 1.25 gram/actuation gel in metered-dose pump 1 pump transdermal BID (DME) OneTouch Verio test strips Strip MISCELLANEOUS (DME) FreeStyle Faith 3 Plus Sensor Device MISCELLANEOUS [facility] Primary Care Provider: Freddy Dee Referrals: Freddy Dee MD [Primary Care Provider, Medical] - 3-5 Days if not improving Activity Restrictions/Additional Instructions: Plenty of fluids and rest. Follow-up with your doctor as needed. Return if feeling worse. Print Language: Prydeinig Disposition Disposition: Home, Self Care Discharge Date/Time: 02/06/25 20:08
[2025-02-06 19:21] LABS: Hematocrit 49.7 % (37-47); Hemoglobin 16.7 g/dL (12.0-15.0); Immature Granulocytes Count 0.090 X10^3/uL (0.0-0.0); Mean Corp Hgb Conc 33.6 g/dL (32-36); Mean Corpuscular Volume 95.4 fL (81-99); Mean Platelet Vol. 10.0 fl (6.2-12.0); NRBC Flagged by Analyzer 0 % (0-5); Platelet Count 293 K/mm3 (150-450); RBC Distribution Width CV 12.9 % (11.6-14.6); RBC Distribution Width SD 45.5 fl (35.1-43.9); Red Blood Count 5.21 M/mm3 (4.2-5.4); White Blood Count 14.6 K/mm3 (4.4-11.0)
[2025-02-06 19:39] VITALS: PULSE 91; RESP 21; O2SAT 97
[2025-02-06 19:46] LABS: Anion Gap 13 (5-15); BUN 12 mg/dL (4-19); BUN/Creat Ratio 14.3 RATIO (10-20); Calcium,Total 9.6 mg/dL (7.6-11.0); Carbon Dioxide 25.3 mmol/L (21.0-32.0); Chloride 101 mmol/L (98-108); Estimated Creatinine Clearance 77.09 ml/min (50-250); Glucose 140 mg/dL (70-99); Potassium 3.6 mmol/L (3.3-5.1); Troponin T High Sensitivity < 6 ng/L (<=14)
[2025-02-06 19:57] VITALS: BP 198/100; PULSE 91; RESP 21; TEMP 36.6; O2SAT 97
[2025-02-06 20:08] VITALS: PULSE 93; RESP 20; O2SAT 97
[2025-02-06 20:08] LABS: Mucous, Urine 0 SEEN /hpf (<or=2+)
[2025-02-06 20:10] LABS: Color, Urine Yellow (Yellow); Glucose, Dipstick Normal (Normal); Ketone-Dipstick Negative (Negative); Leukocyte Esterase-Dipstick Negative /ul (Negative); Nitrite-Dipstick Negative (Negative); Occult Blood-Urine 50 /ul (Negative); Protein-Dipstick Negative (Negative); Specific Gravity, Urine 1.005 (1.002-1.030); Urine Bilirubin Dipstick Negative (Negative)
[2025-02-06 20:35] LABS: Red Blood Cells-Urine 0-5 SEEN /hpf (0-5); Squamous Epithelial Cells - UA 0-5 SEEN /hpf (5-10)
== END 2025-02-06 20:08 | disposition home or self-care (01) ==
PROVIDERS: Emergency Provider Emergency Medicine; PCP Family Medicine; Visit Provider Emergency Medicine
DX: R00.2 Palpitations (principal); J44.9 Chronic obstructive pulmonary disease, unspecified; E11.9 Type 2 diabetes mellitus without complications; I47.10 Supraventricular tachycardia, unspecified; I10 Essential (primary) hypertension; D68.59 Other primary thrombophilia; F41.9 Anxiety disorder, unspecified; Z79.899 Other long term (current) drug therapy; E05.90 Thyrotoxicosis, unspecified without thyrotoxic crisis or storm; Z79.890 Hormone replacement therapy; Z90.721 Acquired absence of ovaries, unilateral; Z98.51 Tubal ligation status; Z90.49 Acquired absence of other specified parts of digestive tract; F17.200 Nicotine dependence, unspecified, uncomplicated; G47.30 Sleep apnea, unspecified; Z99.89 Dependence on other enabling machines and devices
CPT/HCPCS: 71046; 80048; 81001; 84443; 84484; 85025; 93005; 99284

== ENCOUNTER 2025-02-07 00:22 | Emergency (ER) | payer MEDICAID, SELFPAY ==
[2025-02-07 00:23] VITALS: BP 169/102; PULSE 109; RESP 19; TEMP 36.4; O2SAT 97; BMI 39.9
--- NOTE | 2025-02-07 00:25 | EDS_ITS ---
HPI History of Present Illness Chief Complaint: Palpitations Narrative Narrative: Patient is a 59-year-old female presenting to the emergency department for palpitations. Patient has a past medical history of factor V Leiden mutation not on any current anticoagulation, SVT, MASLD, diabetes, COPD, asthma wears 2 L nasal cannula at night. Patient was just here yesterday for high heart rate. Cardiac workup was done then was unremarkable. Patient states that this afternoon she developed a dry cough, sore throat and congestion. She states it feels like she is coming down with something. She denies fever, chills, chest pain, abdominal pain, nausea, vomiting, diarrhea. Denies any lower extremity edema. She states that she is short of breath with basically any activity she reports. States that she feels like her heart has been racing all day. She denies any stimulant use, alcohol or drug use. Denies any recent travel, hospitalizations or surgeries. Denies any history of DVT or PE. 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 On home oxygen therapy Sleep apnea Lumbar degenerative disc disease Dominguez's cyst of knee Vitamin D deficiency Acquired hypothyroidism Essential hypertension IBS (irritable bowel syndrome) Meniere disease Depression Anxiety Hyperthyroidism Sinus tachycardia Paroxysmal SVT (supraventricular tachycardia) Premature ventricular contraction Premature atrial contractions Home Medications ?Medication ?Instructions ?Recorded ?Last Taken ?Type blood sugar diagnostic (OneTouch 06/13/24 Unknown His tory Verio test strips) blood-glucose sensor (FreeStyle 06/13/24 Unknown [facility] Lionical Faith 3 Plus Sensor device) alprazolam 1 mg tablet 1 mg PO TID PRN 06/16/24 Unk nown History dicyclomine 10 mg capsule 10 mg PO TID PRN 06/16/24 Un known History drospirenone (contraceptive) 4 mg 4 mg PO QDAY contrac eptive 06/16/24 Unknown History (28) tablet (Slynd) levothyroxine 150 mcg tablet 150 mcg PO DAILY 06/16/24 Unknown History (Synthroid) estradiol 1.25 gram/actuation 1 pump transdermal BID 0 08/23/24 Unknown History (0.06%) transdermal gel pump (EstroGel) Allergy/AdvReac Type Severity Reaction Status Date / Time amoxicillin (From Voquezna Allergy Severe Flushing, Verified 02/07/25 00:23 Triple Eric) Hives, Hypertension clarithromycin (From Allergy Severe Flushing, Verified 02/07/25 00:23 Voquezna Triple Eric) Hives, Hypertension vonoprazan (From Voquezna Allergy Severe Flushing, Verified 02/07/25 00:23 Triple Eric) Hives, Hypertension codeine Allergy Rash Verified 02/07/25 00:23 hydrocodone bitartrate (From Allergy Rash Verified 02/07/25 00:23 Vicodin) methimazole (From Tapazole) Allergy Shortness Verified 02/07/25 00:23 of breath metformin AdvReac Intermediate myalgias Verified 02/07/25 00:23 famotidine (From Pepcid) AdvReac Unknown Unknown Verified 02/07/25 00:23 estradiol (From CombiPatch) AdvReac myalgias, Verified 02/07/25 00:23 lip/mouth burn, SOB, nausea, dizziness methylprednisolone sodium AdvReac Other Verified 02/07/25 00:23 succinate (From Solu-Medrol) norethindrone (From AdvReac myalgias, Verified 02/07/25 00:23 CombiPatch) lip/mouth burn, SOB, nausea, dizziness oxycodone HCl (From Percocet) AdvReac Nausea/Vom/ Verified 02/07/25 00:23 Diarrhea cyp 2019 AdvReac Intermediate unknown Uncoded 11/27/24 14:54 Family History Father CAD (coronary artery disease) Hypertension Myocardial infarction, Onset Age: 66 Hx of CABG Colon cancer Diabetes Mother CVA (cerebral vascular accident) Diabetes Sister Thyroid disorder Surgical History Hx of radioactive iodine thyroid ablation History of left oophorectomy History of tubal ligation History of cholecystectomy Social History Smoking Status: Heavy Smoker (>10/day) alcohol intake: never substance use type: does not use caffeine: No ROS ROS ED ROS Narrative see HPI EXAM Physical Exam Narrative Exam Narrative: Vital signs: Reviewed General: Alert and orientedx3. No acute distress HEENT: Head is normocephalic and atraumatic, sinuses nontender, pupils equal round and reactive. Nares are patent. Oropharynx and throat exams normal. Neck: Supple without lymphadenopathy nontender Cardiovascular: Mildly tachycardic rate and regular rhythm, no murmurs. No rubs or gallops. Normal S1 and S2 Respiratory: Clear to auscultation bilaterally. No wheezes, rales, rhonchi Abdominal: Soft and nontender. Normal bowel sounds. No guarding or rebound. Nonsurgical abdomen Extremities: No lower extremity edema. No tenderness. No bruising. Normal range of motion. Normal sensation. Skin: No rash or redness. Neurological: Cranial nerves II through XII are grossly intact. Normal strength and sensation. Normal cerebellar function The rest of the physical exam is unremarkable Const Vital Signs: 02/07/25 00:23 02/07/25 00:23 02/07/25 01:23 Temperature 97.5 F L Temperature Source Oral Pulse Rate 109 H 85 Respiratory Rate 19 H 20 H Respiratory Effort Normal Blood Pressure 169/102 H 139/72 H Blood Pressure Mean 124 94 Pulse Ox 97 95 Oxygen Delivery Method Room Air Room Air 02/07/25 02:00 02/07/25 02:34 02/07/25 03:00 Temperature Temperature Source Pulse Rate 101 H 81 91 Respiratory Rate 19 H 18 Respiratory Effort Blood Pressure 134/72 H 127/75 H Blood Pressure Mean 92 92 Pulse Ox 95 94 Oxygen Delivery Method Room Air Room Air MDM MDM MDM Narrative Medical decision making narrative: Patient is a 59-year-old female presenting to the emergency department for palpitations and shortness of breath. Patient was seen and examined. Vitals are stable. She is mildly tachycardic at 109 on arrival. Saturating 97% on room air. Resting in bed comfortably in no acute distress. Differential includes but is not limited to: URI, pneumonia, PE, ACS, new heart failure EKG shows sinus tachycardia with nonspecific ST abnormality. No dysrhythmia. Appears similar to EKG done earlier today. Given the patient's tachycardia and shortness of breath, CTA of the chest will be ordered. Will repeat labs including troponin and also obtain a BNP and magnesium level. TSH was normal earlier today. CBC with leukocytosis of 16.2. Just slightly elevated from her level drawn earlier today. Hemoglobin of 16.4. Evidence of hemoconcentration as well. BMP with no significant abnormalities. Troponin within normal limits. Given the palpitations have been going on today and there was a normal troponin earlier and now, I do not think the patient requires additional reflexes. BNP within normal limits. Magnesium within normal limits. CTA of the chest shows no demonstrated pulmonary embolism or arterial dissection. Unchanged 1.5 x 1.4 cm well-defined nodule in the posterior aspect of the right upper lobe. Unchanged emphysema. Unchanged mildly prominent mediastinal and hilar lymph nodes with the largest measuring 1.2 cm. Patient was updated on the lab and imaging findings. Notified of the incidental right upper lobe nodule and lymph nodes that are prominent. Patient is already aware of these. Instructed to have them monitored outpatient. She states since she has been here she has developed left ear pain. Reports that she has a mucoid cyst states that her ENT doctor recommended that she had it removed but she did not want to at that time. States that he told her that if she got sick she needed to be started on antibiotics right away. Her ear was examined. External ear is unremarkable. Ear canal is unremarkable. No erythema. TM is nonbulging and nonerythematous. Neck was examined. No cervical lymphadenopathy. No abnormalities felt in the neck. No erythema, warmth or swelling of the neck. Trachea is midline. No oropharyngeal abnormalities. Patient and visitor at bedside are adamantly requesting antibiotics due to this recommendation supposedly made by her ENT. I explained with 1 day of symptoms I would recommend not starting antibiotics. I did attempt to chart review and look to see if the ENTs notes or available for review or if there is any note of this need for antibiotics. During my chart review patient came to tell me that she would call her ENT in the morning given it is 3 AM and he will be in the office at 8 AM to prescribe her appropriate antibiotics. I think this is appropriate given her symptoms have only started today and it is likely viral in nature and I do not think the patient needs antibiotics at this time. Patient discharged from the Emergency Department. I do not feel that the patient's evaluation reveals any acute reason for admission at this time. I instructed them to either follow-up with their primary care physician or promptly return to the Emergency Department for reevaluation should symptoms worsen or new symptoms develop. I explained what symptoms would indicate the need to return to the emergency department. Shared decision making was used. The patient voiced understanding of the treatment plan and is agreeable with it. Clinical impression Palpitations URI Leukocytosis History & Record Review Discussion w/independent historian: Patient and Family Lab Data Attestation: I reviewed the patient's lab results. Labs: Laboratory Results - last 24 hr 02/07/25 00:41 WBC 16.2 H RBC 5.07 Hgb 16.4 H Hct 48.4 H MCV 95.5 MCH 32.3 H MCHC 33.9 RDW Std Deviation 45.1 H RDW Coeff of Linette 12.9 Plt Count 286 MPV 9.9 Immature Gran % (Auto) 0.700 Neut % (Auto) 58.4 Lymph % (Auto) 30.5 Hodgeman % (Auto) 8.6 Eos % (Auto) 1.2 Baso % (Auto) 0.6 Absolute Neuts (auto) 9.5 H Absolute Lymphs (auto) 4.94 H Nucleated RBC % 0 Sodium 139 Potassium 3.9 Chloride 103 Carbon Dioxide 26.0 Anion Gap 10 BUN 12 Creatinine 0.84 Estim Creat Clear Calc 76.27 Est GFR (MDRD) Non-Af 80 BUN/Creatinine Ratio 14.2 Glucose 170 H Calcium 9.6 Magnesium 2.1 Troponin T High Sens < 6 NT pro BNP II < 36 Radiography Diagnostic Testing: Clinical Impression(s) from Imaging Studies Chest CTA 02/07/25 00:30 IMPRESSION: No demonstrated pulmonary embolism or arterial dissection. Unchanged 1.5 x 1.4 cm well-defined nodule in the posterior aspect of the right upper lobe. Unchanged emphysema. Unchanged mildly prominent mediastinal and hilar lymph nodes with the largest measuring 1.2 cm. Reading [facility] Discharge Plan Triage Chief Complaint: Palpitations ED Provider: Silvia De Oliveira Dx/Rx/DC Orders Clinical Impression: Heart palpitations, URI (upper respiratory infection) Instructions: Understanding Heart Palpitations, ED URI, Viral, No Abx (Adult) Prescriptions: No Action levothyroxine [Synthroid] 150 mcg tablet 150 mcg PO DAILY Rx Instructions: One tab daily except 1/2 tab Sat/Sun alprazolam 1 mg tablet 1 mg PO TID PRN Patient Comments: [NO ORIGINAL SIG] dicyclomine 10 mg capsule 10 mg PO TID PRN Slynd 4 mg (28) tablet 4 mg PO QDAY Patient Comments: [NO ORIGINAL SIG] estradiol [EstroGel] 1.25 gram/actuation gel in metered-dose pump 1 pump transdermal BID (DME) OneTouch Verio test strips Strip MISCELLANEOUS (DME) FreeStyle Faith 3 Plus Sensor Device MISCELLANEOUS [facility] Primary Care Provider: Freddy Dee Referrals: Freddy Dee MD [Primary Care Provider, Medical] - As soon as possible Activity Restrictions/Additional Instructions: Your evaluation in the Emergency Department did not reveal any acute reason for admission. However, I want to emphasize that you may be early in the course of a disease process or illness even if it is not present. For this reason you should follow-up within 24 hours for reevaluation with either your primary care physician or if necessary back here in the Emergency Department. You should return to the Emergency Department immediately if your symptoms worsen or new symptoms develop. Print Language: Maltese Disposition Disposition: Home, Self Care
--- NOTE | 2025-02-07 00:30 | EKG12_ITS ---
Test Reason : DYSRHYTHMIA Blood Pressure : */* mmHG Vent. Rate : 112 BPM Atrial Rate : 112 BPM P-R Int : 140 ms QRS Dur : 86 ms QT Int : 330 ms P-R-T Axes : 52 69 29 degrees QTcB Int : 450 ms Sinus tachycardia Possible Left atrial enlargement Nonspecific ST and T wave abnormality Abnormal ECG Confirmed by ARYA HARRIS, JUAN ([id number]), newspaper editor managing CHRISTINA ROJO ([id number]) on 02/07/2025 10:55:27 AM Referred By: SOPHIE Confirmed By: JUAN KOENIG MD
--- NOTE | 2025-02-07 00:30 | CT_ITS ---
PROCEDURE: CTA CHEST W/WO CONTRAST 02/07/2025 REASON FOR EXAM: RULE OUT PE TECHNIQUE: Procedure Code: [id number] Modality: CT Procedure: CTA CHEST W/WO CONTRAST Multiplanar Sagittal and Coronal images were obtained. CONTRAST: Isovue 370 VOLUME: 100 mL One or more dose reduction techniques were used (e.g., Automated exposure control, adjustment of the mA and/or kV according to patient size, use of iterative reconstruction technique). RADIATION DOSE SUMMARY: CTDlvol: 15.04 mGy DLP: 551 mGycm COMPARISON: Chest radiograph on 02/06/2025. CT scan on 05/12/2024. FINDINGS: Unchanged 1.5 x 1.4 cm well-defined nodule in the posterior aspect of the right upper lobe. Unchanged emphysema. Unchanged mildly prominent mediastinal and hilar lymph nodes with the largest measuring 1.2 cm. Normal enhancement of the main pulmonary artery and right and left pulmonary arteries. Normal enhancement of the bilateral peripheral pulmonary arteries. There is no demonstrated pulmonary embolism. Normal thoracic aorta and visualized great vessels. There is no demonstrated aortic dissection. Normal heart and pericardium. Normal visualized trachea and bronchi. Normal pleura. Mild diffuse spondylosis. Normal visualized upper abdomen. CT/CTA Chest W/WO Contrast IMPRESSION: No demonstrated pulmonary embolism or arterial dissection. Unchanged 1.5 x 1.4 cm well-defined nodule in the posterior aspect of the right upper lobe. Unchanged emphysema. Unchanged mildly prominent mediastinal and hilar lymph nodes with the largest m easuring 1.2 cm. Reading [facility]
[2025-02-07 00:51] LABS: Hematocrit 48.4 % (37-47); Hemoglobin 16.4 g/dL (12.0-15.0); Immature Granulocytes Count 0.110 X10^3/uL (0.0-0.0); Mean Corp Hgb Conc 33.9 g/dL (32-36); Mean Corpuscular Volume 95.5 fL (81-99); Mean Platelet Vol. 9.9 fl (6.2-12.0); NRBC Flagged by Analyzer 0 % (0-5); Platelet Count 286 K/mm3 (150-450); RBC Distribution Width CV 12.9 % (11.6-14.6); RBC Distribution Width SD 45.1 fl (35.1-43.9); Red Blood Count 5.07 M/mm3 (4.2-5.4); White Blood Count 16.2 K/mm3 (4.4-11.0)
[2025-02-07 01:12] LABS: Anion Gap 10 (5-15); BUN 12 mg/dL (4-19); BUN/Creat Ratio 14.2 RATIO (10-20); Calcium,Total 9.6 mg/dL (7.6-11.0); Carbon Dioxide 26.0 mmol/L (21.0-32.0); Chloride 103 mmol/L (98-108); Estimated Creatinine Clearance 76.27 ml/min (50-250); Glucose 170 mg/dL (70-99); Magnesium 2.1 mg/dL (1.5-2.2); Potassium 3.9 mmol/L (3.3-5.1)
[2025-02-07 01:17] LABS: Pro- Brain NATRIURETIC PEPTIDE < 36 pg/mL (<=900); Troponin T High Sensitivity < 6 ng/L (<=14)
[2025-02-07 01:23] VITALS: BP 139/72; PULSE 85; RESP 20; O2SAT 95
[2025-02-07 02:00] VITALS: BP 134/72; PULSE 101; RESP 19; O2SAT 95
[2025-02-07 02:34] VITALS: PULSE 81
[2025-02-07 03:00] VITALS: BP 127/75; PULSE 91; RESP 18; O2SAT 94
[2025-02-07 03:11] VITALS: BP 127/75; PULSE 100; RESP 21; TEMP 36.6; O2SAT 95
== END 2025-02-07 03:14 | disposition home or self-care (01) ==
PROVIDERS: Emergency Provider Student in an Organized Health Care Education/Training Program; PCP Family Medicine; Visit Provider Student in an Organized Health Care Education/Training Program
DX: J06.9 Acute upper respiratory infection, unspecified (principal); J44.9 Chronic obstructive pulmonary disease, unspecified; E11.9 Type 2 diabetes mellitus without complications; R00.2 Palpitations; I10 Essential (primary) hypertension; Z99.89 Dependence on other enabling machines and devices; F41.9 Anxiety disorder, unspecified; Z79.899 Other long term (current) drug therapy; Z79.890 Hormone replacement therapy; Z79.3 Long term (current) use of hormonal contraceptives; Z90.721 Acquired absence of ovaries, unilateral; Z98.51 Tubal ligation status; Z90.49 Acquired absence of other specified parts of digestive tract; F17.200 Nicotine dependence, unspecified, uncomplicated; D72.829 Elevated white blood cell count, unspecified
CPT/HCPCS: 71275; 80048; 83735; 83880; 84484; 85025; 93005; 99283; Q9967; A4216

== ENCOUNTER 2025-02-09 09:48 | Emergency (ER) | payer MEDICAID, SELFPAY ==
[2025-02-09 09:49] VITALS: BP 178/92; PULSE 131; RESP 18; TEMP 36.6; O2SAT 96; BMI 39.8
--- NOTE | 2025-02-09 10:11 | EDS_ITS ---
HPI History of Present Illness Chief Complaint: General Illness Narrative Narrative: Pt is a 59-year-old female who is presenting to the ER for chief complaint of flulike symptoms. Patient is having intermittent dry and yellowish/whitish productive cough for the past 4 days. Patient was in the ER here on Wednesday, was seen evaluated, and was told that she had a virus and was sent home to treat with symptomatic treatment [id number]. Patient is only taking zinc. Patient is using no other medications to help treat her upper respiratory/sinus congestion. Patient is prediabetic. Patient is a smoker. Patient normally smokes 1 pack of cigarettes a day, patient has only been smoking a few cigarettes this week. Patient had her son's checked at home from her daughter, it was noted that her oxygen was 89%. Patient also having some right suprapubic pain, states that she has had this before with pneumonia. She has no midepigastric or right upper quadrant pain. She has no chest heaviness, tightness or pain. Patient chief concern is that she has pneumonia and would like an antibiotic. Patient is on no heavy lifting, twisting or turning. No recent traveling. No chest heaviness tightness. No abdominal pain nausea or vomiting. No swelling arms or legs REVIEW OF SYSTEMS: Unless otherwise stated in this report the patient's positive and negative responses for review of systems for constitutional, eyes, ENT, cardiovascular, respiratory, gastrointestinal, neurological, , musculoskeletal, and integument systems and related systems to the presenting problem are either stated in the history of present illness or were not pertinent or were negative for the symptoms and/or complaints related to the presenting medical problem. Nurse's notes and vital signs reviewed. The patient is not hypoxic. Vital signs reviewed and patient is not hypoxic. General: The patient appears well and in no apparent distress. Patient is resting comfortably on cart. Not toxic, lethargic, or listless. Skin: Warm, dry, no pallor noted. There is no rash noted. No rash to right upper thoracic area. Head: Normocephalic, atraumatic; mild tenderness to palpation to bilateral frontal sinus, point of motion cervical spine no deformity, no meningeal signs or symptoms. Eye: Normal conjunctiva, no drainage, EOMI. PERRL. Ears, Nose, Mouth, and Throat: oral mucosa is moist. Nares patent. Mouth without vesicles. Patient has some mild posterior pharyngeal erythema, cobblestoning noted. No unilateral swelling. No posterior pharyngeal exudate, petechiae, no brawny tongue, no pain of floor the mouth, no other intraoral pathology. Cardiovascular: Regular Rate and Rhythm, no murmurs, gallops, or rubs Respiratory: Patient is in no distress, no accessory muscle use, lungs are clear to auscultation, no wheezing, rales or rhonchi. Equal breast bilateral, very clear breath sounds bilateral. Back: non-tender, no CVA tenderness bilaterally to percussion. NO CTLS midline or paraspinal tenderness to palpation. GI: Soft, obese, no tenderness to palpation, no masses appreciated. No rebound, guarding, or rigidity noted. Musculoskeletal: The patient has full range of motion of all extremities and joints with no difficulty. Patient has no motor, no sensory deficits. Neurological: A&O x4, normal speech, no focal neurological deficits. Psychiatric: Cooperative 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 On home oxygen therapy Sleep apnea Lumbar degenerative disc disease Dominguez's cyst of knee Vitamin D deficiency Acquired hypothyroidism Essential hypertension IBS (irritable bowel syndrome) Meniere disease Depression Anxiety Hyperthyroidism Sinus tachycardia Paroxysmal SVT (supraventricular tachycardia) Premature ventricular contraction Premature atrial contractions Home Medications ?Medication ?Instructions ?Recorded ?Last Taken ?Type blood sugar diagnostic (OneTouch 06/13/24 Unknown His tory Verio test strips) blood-glucose sensor (FreeStyle 06/13/24 Unknown Hist orgDecide Faith 3 Plus Sensor device) alprazolam 1 mg tablet 1 mg PO TID PRN 06/16/24 Unk nown History dicyclomine 10 mg capsule 10 mg PO TID PRN 06/16/24 Un known History drospirenone (contraceptive) 4 mg 4 mg PO QDAY contrac eptive 06/16/24 Unknown History (28) tablet (Slynd) levothyroxine 150 mcg tablet 150 mcg PO DAILY 06/16/24 Unknown History (Synthroid) estradiol 1.25 gram/actuation 1 pump transdermal BID 0 08/23/24 Unknown History (0.06%) transdermal gel pump (EstroGel) albuterol sulfate 90 mcg/actuation 1 - 2 puff inhalati on Q4H PRN PRN 02/09/25 Unknown Rx aerosol inhaler (Ventolin HFA) Wheezing ##1 benzonatate 100 mg capsule 200 mg (2 x 100 mg) PO TID PRN PRN 02/09/25 Unknown Rx Cough #20 CAPSULES ohbbjmpdgwjkzff-yidjpravruojyeb-SH 5 ml PO Q6H PRN col d symptoms #100 02/09/25 Unknown Rx 2 mg-30 mg-10 mg/5 mL oral syrup mL (Bromfed DM) Allergy/AdvReac Type Severity Reaction Status Date / Time [facility] Severe Flushing, Verified 02/09/25 09:48 Triple Eric) Hives, Hypertension clarithromycin (From Allergy Severe Flushing, Verified 02/09/25 09:48 [facility]) Hives, Hypertension vonoprazan (From [facility] Allergy Severe Flushing, Verified 02/09/25 09:48 Triple Eric) Hives, Hypertension codeine Allergy Rash Verified 02/09/25 09:48 hydrocodone bitartrate (From Allergy Rash Verified 02/09/25 09:48 Vicodin) methimazole (From Tapazole) Allergy Shortness Verified 02/09/25 09:48 of breath metformin AdvReac Intermediate myalgias Verified 02/09/25 09:48 famotidine (From Pepcid) AdvReac Unknown Unknown Verified 02/09/25 09:48 estradiol (From CombiPatch) AdvReac myalgias, Verified 02/09/25 09:48 lip/mouth burn, SOB, nausea, dizziness methylprednisolone sodium AdvReac Other Verified 02/09/25 09:48 succinate (From Solu-Medrol) norethindrone (From AdvReac myalgias, Verified 02/09/25 09:48 CombiPatch) lip/mouth burn, SOB, nausea, dizziness oxycodone HCl (From Percocet) AdvReac Nausea/Vom/ Verified 02/09/25 09:48 Diarrhea cyp 2019 AdvReac Intermediate unknown Uncoded 11/27/24 14:54 Family History Father CAD (coronary artery disease) Hypertension Myocardial infarction, Onset Age: 66 Hx of CABG Colon cancer Diabetes Mother CVA (cerebral vascular accident) Diabetes Sister Thyroid disorder Surgical History Hx of radioactive iodine thyroid ablation History of left oophorectomy History of tubal ligation History of cholecystectomy Social History Smoking Status: Heavy Smoker (>10/day) alcohol intake: never substance use type: does not use caffeine: No EXAM Physical Exam Const Vital Signs: 02/09/25 09:49 02/09/25 10:07 02/09/25 10:33 Temperature 97.9 F Temperature Source Oral Pulse Rate 131 H 102 H Respiratory Rate 18 19 H Respiratory Pattern Normal Blood Pressure 178/92 H 133/77 H Blood Pressure Mean 120 95 Pulse Ox 96 93 Oxygen Delivery Method Room Air Room Air 02/09/25 11:00 02/09/25 11:00 02/09/25 11:38 Temperature 97.9 F Temperature Source Pulse Rate 106 H 106 H Respiratory Rate 18 18 Respiratory Pattern Blood Pressure 133/77 H Blood Pressure Mean 95 Pulse Ox 98 98 Oxygen Delivery Method Room Air MDM MDM MDM Narrative Medical decision making narrative: Patient seen and examined: Patient had a breathing treatment, chest x-ray patient; has no rash to her right upper thoracic spine. Differential diagnosis includes but is not limited to: Sinus congestion, sinusitis, pharyngitis, pneumonia, flulike symptoms, COPD exacerbation * Radiological studies: Chest x-ray shows no acute cardiopulmonary disease, no infiltrate, no effusion. Differential diagnosis was given by radiologist. Reevaluation: 1100 Patient and I had lengthy conversation at bedside and treatment of her symptoms which wium-kex-bqhmwwu medications which she is not doing. She is only using zinc at this time. Patient recommended to use DayQuil, NyQuil, Flonase, Mucinex, hydrate, and if no improvement next week, follow-up with PCP to see if antibiotics would be indicated or not. Patient was understanding of this and agreed. 1150 Patient has been telling nursing staff that she will never return to [facility], stating that she has a Z-Eric at home that she will just use, and very upset they were not doing additional testing. Patient has told me that she has an infection. I agree with the patient that she does have an infection. We also discussed that she is more prone to infection with history of tobacco abuse and emphysema. I have discussed with the patient x-ray findings, also discussed that patient's lungs are crystal clear, no wheezing, rhonchi, rales, crackles bilateral. Patient is oxygen has been 98% on room air. Patient's heart rate has been down in the 80s and 90s when I been discussing and talking to her, intermittently going into the 100s and 1 teens when she was upset and then dropped quickly into the 90s.. Patient wants a CBC repeated. There is no acute indication for this to be done at this time. patient was educated that she was seen in the ER earlier this week, and I reminded her that she has not called her family doctor and she should be following up with her family doctor for additional tests if needed. Patient vital signs show no acute emergent findings. There is no acute indication for IV, labs, or additional x-rays or CAT scans. I was not going to do a x-ray chest initially, but patient had x- ray done because she had requested it. Patient also was using no pbdu-fio-uckuetr medication to help treat her symptoms except zinc. Patient was upset she is getting a breathing treatment but we discussed why she is getting a breathing treatment to help with mucous plugs and help with cough and congestion. Patient is upset she is not getting additional testing. Daughter was at bedside at discharge. Lexus RN was at bedside during discharge discussion as well. Patient was given 3 different ways on how her PCP could obtain the medical chart from today as well. Patient is upset at discharge because she is not getting antibiotics and not getting testing that she is telling me I need to do. I educated patient on various infections of viral versus bacterial versus fungal. I asked the patient to please come back if she is having more short of breath, or any other acute current symptoms. Patient was encouraged to follow-up with her PCP as she was instructed to do earlier this week and today. Patient was told that she can please come back to the ER at any time for reevaluation. Social barriers to healthcare: There are no food insecurities, there is no issue with transportation, there are no insurance barriers Radiography Chest X-Ray - ED: Read by ED Physician (Chest x-ray shows no acute cardiop ulmonary disease, no filtrate, no effusion.) Diagnostic Testing: Clinical Impression(s) from Imaging Studies Chest X-Ray 02/09/25 10:17 IMPRESSION: Small airways disease right upper lobe. Acinar filling represents mucous, pus or fluid in primary pulmonary lobules. Differential considerations include atypical organisms like mycobacteria such as NICKY/MAC and fungal infection like coccidioidomycosis. Reading Location: [facility] EKG Initial EKG: Attestation: I personally reviewed and interpreted this EKG as follows: (EKG interpretation. Normal sinus rhythm at 90 beats a minute. Normal axis deviation. No acute ST elevation, no acute ectopy. QTc of 441) Discharge Plan Triage Chief Complaint: General Illness ED Provider: Chilo Leon Dx/Rx/DC Orders Clinical Impression: Sinus congestion, Bronchitis Instructions: Acute Bronchitis, Using an Inhaler, COPD: Using Inhalers, ED URI, Viral, No Abx (Adult) Prescriptions: New benzonatate 100 mg capsule 200 mg PO TID PRN PRN (Reason: Cough) Qty: 20 0RF cqormmhadhhrqjk-berpsbpcq-PA [Bromfed DM] 2-30-10 mg/5 mL syrup 5 ml PO Q6H PRN (Reason: cold symptoms) Qty: 100 0RF albuterol sulfate [Ventolin HFA] 90 mcg/actuation HFA aerosol inhaler 1 - 2 puff inhalation Q4H PRN PRN (Reason: Wheezing) Qty: 1 0RF No Action levothyroxine [Synthroid] 150 mcg tablet 150 mcg PO DAILY Rx Instructions: One tab daily except 1/2 tab Sat/Sun alprazolam 1 mg tablet 1 mg PO TID PRN Patient Comments: [NO ORIGINAL SIG] dicyclomine 10 mg capsule 10 mg PO TID PRN Slynd 4 mg (28) tablet 4 mg PO QDAY Patient Comments: [NO ORIGINAL SIG] estradiol [EstroGel] 1.25 gram/actuation gel in metered-dose pump 1 pump transdermal BID (DME) OneTouch Verio test strips Strip MISCELLANEOUS (DME) FreeSt7 Cups of Tea Faith 3 Plus Sensor Device MISCELLANEOUS QMONTH Primary Care Provider: Freddy Dee Referrals: Freddy Dee MD [Primary Care Provider, Medical] Activity Restrictions/Additional Instructions: Use osrb-ueh-bikeihy DayQuil, NyQuil, Flonase daily. Use Mucinex DM as needed as well. Alternate Tylenol and either Motrin, Advil, or ibuprofen every 4 hours to help with fever, chills, myalgia, arthralgia or pain. Use zinc, vitamin D3, vitamin C to help build immune system and help fight infection as well. Increase fluids, Gatorade, or Powerade daily for the next 3 to 5 days. Print Language: Welsh Disposition Disposition: Home, Self Care
--- NOTE | 2025-02-09 10:17 | RAD_ITS ---
PROCEDURE: CHEST PA AND LATERAL 02/09/2025 REASON FOR EXAM: COUGH TECHNIQUE: Procedure Code: RADCXR Modality: DX Procedure: CHEST PA AND LATERAL COMPARISON: February 07, 2025 FINDINGS: Hardware: None Heart: Normal-size Mediastinum: The mediastinal contour is unremarkable. Lungs: Mild emphysema is present. The small airways disease in the inferior right upper lobe better seen on prior CT is similar. Bones: The bones are unremarkable. RAD/Chest PA and Lateral IMPRESSION: Small airways disease right upper lobe. Acinar filling represents mucous, pus or fluid in primary pulmonary lobules. Differential considerations include atypical organisms like mycobacteria such a s NICKY/MAC and fungal infection like coccidioidomycosis. Reading Location: [id number]
[2025-02-09 10:33] VITALS: BP 133/77; PULSE 102; RESP 19; O2SAT 93
--- NOTE | 2025-02-09 10:39 | ED.RN ---
States I know I have an infection, I don't care what anyone says. This nurse explained that we have to have a source of infection before the physician can prescribe an antibiotic due to needing to ensure that we prescribe the correct antibiotic. Patient states Well I have a zpak at home, so I'm just going to take that when I get home.
--- NOTE | 2025-02-09 10:40 | EKG12_ITS ---
Test Reason : SOB Blood Pressure : */* mmHG Vent. Rate : 98 BPM Atrial Rate : 98 BPM P-R Int : 142 ms QRS Dur : 90 ms QT Int : 346 ms P-R-T Axes : 61 69 44 degrees QTcB Int : 441 ms Normal sinus rhythm Nonspecific ST and T wave abnormality Abnormal ECG Confirmed by JUAN KOENIG MD ([id number]), editor managing newspaper CHRISTINA ROJO ([id number]) on 02/12/2025 9:16:17 AM Referred By: BERTIN Confirmed By: JUAN KOENIG MD
[2025-02-09] MEDS: Albuterol 2.5 MG/3 ML VIAL.NEB. INHALATION (10:44)
[2025-02-09 11:00] VITALS: PULSE 106; RESP 18; O2SAT 98
[2025-02-09 11:38] VITALS: BP 133/77; PULSE 106; RESP 18; TEMP 36.6; O2SAT 98
--- NOTE | 2025-02-09 11:46 | NURSING ---
This RN bedside to discharge patient. Patient refused and stated she will not be leaving until she speaks to the physician again. Dr. Leon requested to come bedside and speak with patient. Patient states she does not agree with physicians diagnosis and states I know my own body and I know I have a lung infection, I think you should repeat a CBC at least. Physician states he does not feel a CBC is warranted at this time. Discharge instructions reviewed with patient by physician including following up with PCP.
== END 2025-02-09 11:50 | disposition home or self-care (01) ==
PROVIDERS: Emergency Provider Emergency Medicine; PCP Family Medicine; Visit Provider Emergency Medicine
DX: J40 Bronchitis, not specified as acute or chronic (principal); J44.9 Chronic obstructive pulmonary disease, unspecified; E11.9 Type 2 diabetes mellitus without complications; F17.210 Nicotine dependence, cigarettes, uncomplicated; I10 Essential (primary) hypertension; Z99.81 Dependence on supplemental oxygen; G47.30 Sleep apnea, unspecified; Z99.89 Dependence on other enabling machines and devices; F41.9 Anxiety disorder, unspecified; Z79.899 Other long term (current) drug therapy; E05.90 Thyrotoxicosis, unspecified without thyrotoxic crisis or storm; Z79.890 Hormone replacement therapy; Z79.3 Long term (current) use of hormonal contraceptives; Z90.721 Acquired absence of ovaries, unilateral; Z98.51 Tubal ligation status; Z90.49 Acquired absence of other specified parts of digestive tract; R09.81 Nasal congestion
CPT/HCPCS: 71046; 93005; 94640; 99282

== ENCOUNTER → 2025-02-14 | Outpatient (CLI) | payer MEDICAID, SELFPAY | END | disposition home or self-care (01) | LOC: LABSPEC 17:05 | PROVIDERS: PCP Family Medicine; Referring Provider Nurse Practitioner Family; Visit Provider Nurse Practitioner Family | DX: R05.9 Cough, unspecified (principal) | CPT/HCPCS: 87015; 87070; 87077; 87116; 87186; 87205; 87206 ==